=== PATIENT | female | born 1960 | race Caucasian/White ===

== ENCOUNTER 2017-08-01 17:21 | Inpatient (IN) | payer MEDICARE, SELFPAY ==
[2017-08-01] VITALS (12 sets, daily range): BP systolic 115–127; BP diastolic 56–82; PULSE 80–136; RESP 14–27; TEMP 37.3–38.8; O2SAT 92–99; BMI 76.5; BMI 75.2
--- NOTE | 2017-08-01 17:53 | EKG12_ITS ---
Test Reason : WEAKNESS Blood Pressure : / mmHG Vent. Rate : 106 BPM Atrial Rate : 106 BPM P-R Int : 142 ms QRS Dur : 084 ms QT Int : 332 ms P-R-T Axes : 042 006 031 degrees QTc Int : 441 ms Sinus tachycardia Otherwise normal ECG Confirmed by MICHEL SIMS, ALEAH ([id number]), industrial editor KO ROMERO ([id number] on 08/03/2017 2:47:13 PM Referred By: DR GERARDO Confirmed By:ALEAH PEARSON MD
--- NOTE | 2017-08-01 17:56 | ED.VISSUMM ---
- ER Visit Summary Date of Service: 08/01/17 Chief Complaint: [Fever weakness] History of Present Illness: The patient is a 57 F [who presents the emergency department with 1 day of fever and weakness. She had a temperature of 103 at home. She last took Motrin at 10:30 AM this morning. She has a history of cellulitis on her right hip. She has been nauseated she has had a mild cough and shortness of breath. She is diabetic and her sugars have been running high. She denies any abdominal pain or diarrhea. She denies any back pain or headache. She has mild myalgias and arthralgias.] Physical Examination: [] Temp 101.8. Heart rate 126 Obese WN WD NAD PERRL EOMI MMM NECK supple and nontender, no masses Regular tachycardic rhythm no murmur rub or gallop, no peripheral edema, symmetric radial pulses CTAB no respiratory distress ABDOMEN is soft and nontender, normal bowel sounds, no distension, no rebound or guarding SKIN has erythema of her entire back but has a patch of erythema and tenderness on her right flank hip area she has full range of motion of her joints Alert and Oriented x3, CN II-XII in tact, no motor or sensory deficits, gait normal use weakness and mobility is limited by body habitus No lymphadenopathy Test Results: [] Emergency Department Course and Treatment: [Sepsis workup was pursued. Patient's fevers likely secondary to flank cellulitis. She was given broad-spectrum antibiotics. She will be admitted to the hospital] Treatment Plan: [] Disposition: [] Admit Impression: [1 sepsis 2 right flank cellulitis] This note was generated with [employer] dictation software. It may contain incorrect words, spelling, and punctuation that were not noted in review of the chart prior to signing ED Disposition - Plan for ED Patient: Disposition: Acute Care Hospital [facility] Chief Complaint: Weakness
[2017-08-01] MEDS: 0.9% Normal Saline 1,000 ML IV.SOLN. 2000 ML IV (18:08)
[2017-08-01] MEDS: Acetaminophen 500 MG Tablet 1000 MG PO (18:10)
[2017-08-01 18:17] LABS: Absolute Lymphocyte Count 0.44 X10^3/ul (0.83-4.51); Absolute Neutrophil Count 14.9 X10^3/uL (2.0-7.7); Eosinophil# 0.03 X10^3/uL; Eosinophils% 0.2 % (0-5); Hemoglobin 13.3 g/dl (12.0-15.0); Lymphocyte # 0.44 X10^3/ul (4.0); Lymphocyte % 2.8 % (19-41); Mean Corp Hgb Conc 33.3 g/gl (32-36); Mean Corpuscular Volume 84.2 fL (81-99); Mean Platelet Vol. 11.1 fl (6.2-12.0); Monocyte# 0.59 X10^3/uL; Monocyte% 3.7 % (0-10); Neutrophil # 14.93 X10^3/uL (2.7-7.7); Neutrophil % 93.2 % (47-70); Platelet Count 196 K/mm3 (150-450); RBC Distribution Width CV 13.2 % (11.6-14.6); RBC Distribution Width SD 40.3 fl (35.1-43.9); Red Blood Count 4.75 M/mm3 (4.2-5.4)
[2017-08-01 18:18] LABS: Differential Indicated SCAN CRITERIA MET; POSITIVE COUNT NO; POSITIVE DIFFERENTIAL YES; POSITIVE MORPHOLOGY NO
[2017-08-01 18:21] LABS: International Normalized Ratio 1.1; Partial Thromboplast Time 30.4 Seconds (24.1-36.2); Prothrombin Time (Protime)PT. 13.9 SECONDS (11.7-14.9)
[2017-08-01 18:25] LABS: ALB/GLOB Ratio 0.9 RATIO (0.9-2.4); AST(SGOT) 12 U/L (15-37); Alanine Aminotransfer ALT/SGPT 19 U/L (13-56); Albumin, Serum 3.5 g/dL (3.2-5.0); Alkaline Phosphatase 163 U/L (45-117); Anion Gap 7 (5-15); BUN 13 mg/dL (7-18); BUN/Creat Ratio 15.6 RATIO (10-20); Calcium,Total 8.6 mg/dL (8.5-10.1); Chloride 99 mmol/L (98-107); Creatinine, Serum 0.83 mg/dL (0.55-1.02); EST Glomerular Filtration Rate 75 mL/min (>60); Est Glom Filt Rate - Afr Amer 90 mL/min (>60); Estimated Creatinine Clearance 56.43 ml/min; Globulin 3.7 g/dL (2.2-4.2); Glucose 306 mg/dL (74-106); Lactic Acid 1.7 mmol/L (0.4-2.0); Potassium 4.1 mmol/L (3.5-5.1); Protein, Total 7.2 g/dL (6.4-8.2); Sodium Level 134 mmol/L (136-145)
[2017-08-01 18:27] LABS: Differential Comment SCANNED
--- NOTE | 2017-08-01 18:50 | RAD_ITS ---
STUDY: X-RAY CHEST REASON FOR EXAM: Female, 57 years old. Weakness TECHNIQUE: Frontal and lateral views of the chest COMPARISON: 05/28/2012 FINDINGS: The lungs are clear. There are no pleural effusions. There is no pneumothorax. The heart is normal in size. The visualized osseous structures are within normal limits. RAD/Chest PA and Lateral IMPRESSION: No acute thoracic pathology. Electronically Signed: Danial Whatley, at 19:44 EDT Tel , Service support ,
[2017-08-01 19:44] LABS: Bacteria 0 SEEN /hpf (None Seen); Red Blood Cells-Urine 0 SEEN /hpf (0-5); Squamous Epithelial Cells - UA 0 SEEN /hpf (5-10); White Blood Cells 0 SEEN /hpf (0-5)
[2017-08-01 20:01] LABS: Color, Urine Yellow (Yellow); Glucose, Dipstick 250 mg/dl (Normal); Ketone-Dipstick 5 mg/dl (Negative); Leukocyte Esterase-Dipstick Negative /ul (Negative); Nitrite-Dipstick Negative (Negative); Occult Blood-Urine 10 /ul (Negative); Protein-Dipstick 15 mg/dl (Negative); Specific Gravity, Urine 1.015 (1.002-1.030); Urine Bilirubin Dipstick Negative (Negative); Urine Clarity Clear (Clear); Urine Urobilinogen Normal (Normal)
[2017-08-01 20:11] LABS: Mucous, Urine 1+ /hpf (<or=2+)
--- NOTE | 2017-08-01 23:12 | PCM.HP.STD ---
Problem List (1) Cellulitis Status: Acute Qualifiers: Site of cellulitis: buttock Qualified Code(s): L03.317 - Cellulitis of buttock History of Present Illness Date of Admission: 08/01/17 Chief Complaint: flank and buttock pain. The patient is a 57 year old F morbidly obese woman who was in her normal state of health up until today where patient developed pain and swelling in her right side associated with high-grade fevers of 103 Fahrenheit. Patient has had similar episodes like this with cellulitis. Patient presented to the emergency room via EMS and have cellulitis and received a Zosyn and vancomycin. Patient does also state that she is short of breath as well. [] Past Medical History Past Medical History (Chronic Problems): Chronic Problems History of pneumonia (Chronic) JEREMÍAS (obstructive sleep apnea) (Chronic) Lumbosacral neuritis (Chronic) Esophageal reflux (Chronic) Morbid obesity (Chronic) Hypertension (Chronic) Allergies amlodipine Adverse Reaction (Verified 08/01/17 17:30) Unknown atenolol Adverse Reaction (Verified 08/01/17 17:30) Unknown bupropion HCl [From Wellbutrin] Adverse Reaction (Verified 08/01/17 17:30) Unknown fluoxetine HCl [From Prozac] Adverse Reaction (Verified 08/01/17 17:30) Unknown meloxicam [From Mobic] Adverse Reaction (Verified 08/01/17 17:30) Unknown metoprolol Adverse Reaction (Verified 08/01/17 17:30) Unknown pregabalin [From Lyrica] Adverse Reaction (Verified 08/01/17 17:30) Unknown quetiapine fumarate [From Seroquel] Adverse Reaction (Verified 08/01/17 17:30) Unknown quinapril HCl [From Accupril] Adverse Reaction (Verified 08/01/17 17:30) Unknown risperidone Adverse Reaction (Verified 08/01/17 17:30) Unknown rofecoxib [From Vioxx] Adverse Reaction (Verified 08/01/17 17:30) Unknown sitagliptin phosphate [From Januvia] Adverse Reaction (Verified 08/01/17 17:30) Unknown venlafaxine HCl [From Effexor] Adverse Reaction (Verified 08/01/17 17:30) Unknown Home Medications: Ambulatory Orders Medication Instructions Recorded Aripiprazole [Aripiprazole] 10 mg PO DAILY 12/02/14 Aspirin [Adult Low Dose Aspirin EC] 81 mg PO DAILY 12/02/14 Duloxetine HCl 60 mg PO DAILY 12/02/14 Furosemide [Furosemide] 20 mg PO DAILY 12/02/14 Linagliptin [Tradjenta] 5 mg PO DAILY 12/02/14 Metformin HCl [Glucophage] 500 mg PO DAILY 12/02/14 Potassium Chloride [K-Dur] 10 meq PO DAILY 12/02/14 Ranitidine [Zantac] 150 mg PO BID 12/02/14 Spironolactone [Aldactone] 25 mg PO DAILY 12/02/14 Baclofen [Baclofen] 10 mg PO BID 08/01/17 Diclofenac Sodium 75 mg PO BID 08/01/17 Gabapentin [Neurontin] 300 mg PO QHS 08/01/17 Primidone [Mysoline] 50 mg PO QHS 08/01/17 traZODone [Desyrel] 50 - 100 mg PO QHS PRN 08/01/17 Surgical History: cholecystectomy Lives: Alone Smoking Status: Former smoker Tobacco Use: Non-smoker Alcohol: None Drugs: None - *Family History Sibling History Items: Heart Disease Review of Systems Constitutional: Reports: Chills, Fever. Denies: Anorexia Eyes: Denies: Blurred vision, Double vision HEENT: Denies: Head Aches, Sinus Congestion, Sinus Drainage Cardiovascular: Denies: Chest Pain, Palpitations Respiratory: Reports: Shortness of Breath. Denies: Cough, Sputum production Gastrointestinal: Denies: Abdominal Pain, Nausea, Vomiting Genitourinary: Denies: Dysuria Musculoskeletal: Denies: Joint Pain, Joint Tenderness Skin: Denies: Dryness, Lesions Neurological: Denies: Numbness, Tingling, Focal weakness Psychiatric: Denies: Anxiety, Depression Hematologic/ Lymphatic: Denies: Easy Bruising, Easy Bleeding, Hx of blood clot Comment: Our views are otherwise negative except for as mentioned above in the HPI and review of systems. VTE Information - Inpt Only VTE Present on Admission: No VTE Pharm Prophylaxis ordered?: Yes Patient Problems: Active and Suspected Problems Cellulitis (Acute) - Physical Exam General: Alert, Cooperative, No apparent distress, - - Morbidly obese HEENT: Atraumatic, Normocephalic Oral: Moist Mucosa Neck: No Nodes, Thyroid Normal Size and Texture Lungs: Clear to auscultation, No rhonchi, No wheeze, Diminished Cardiovascular: Regular rate, Regular Rhythm, Normal S1, Normal S2 Abdomen: Bowel Sounds Present, Soft, Non Tender, Non-Distended, Obese Extremities: No Calf Tenderness, Edema - Trace Skin: - - Some mild erythema noted throughout but actual warmth noted on over the right buttocks and flank. No definitive well-demarcated lesion is identified. Musculoskeletal: No Tenderness to Palpation of Joints or Extremities, No Muscle Wasting Neurological: Neuro grossly intact, Muscle tone normal, Sensory exam intact to light touch and pain Psych/Mental Status: Normal Affect, Appropriate Vital Signs Temp Pulse Resp BP Pulse Ox 37.5 C H 85 14 123/70 H 99 08/01/17 21:11 08/01/17 22:48 08/01/17 22:48 08/01/17 22:48 08/01/17 22:48 Oxygen Flow Rate (L/min) 2 Oxygen Delivery Method Room Air Weight: 183.7 kg Body Mass Index (BMI) 76.5 Laboratory Tests Past 24 Hrs 08/01/17 08/01/17 08/01/17 17:40 17:40 17:40 WBC 16.0 H RBC 4.75 Hgb 13.3 Hct 40.0 MCV 84.2 MCH 28.0 MCHC 33.3 RDW 13.2 RDW Differential 40.3 Plt Count 196 MPV 11.1 Immature Gran % (Auto) 0.100 Neut % (Auto) 93.2 H Lymph % (Auto) 2.8 L [place] % (Auto) 3.7 Eos % (Auto) 0.2 Baso % (Auto) 0.0 Absolute Neuts (auto) 14.9 H Absolute Lymphs (auto) 0.44 L Total Counted Not Reportable Differential Comment SCANNED PT 13.9 INR 1.1 APTT 30.4 Sodium 134 L Potassium 4.1 Chloride 99 Carbon Dioxide 28.0 Anion Gap 7 BUN 13 Creatinine 0.83 Estim Creat Clear Calc 56.43 Est GFR (MDRD) Af Amer 90 Est GFR (MDRD) Non-Af 75 BUN/Creatinine Ratio 15.6 Glucose 306 H Lactic Acid Calcium 8.6 Total Bilirubin 0.80 AST 12 L ALT 19 Alkaline Phosphatase 163 H Troponin I < 0.015 Total Protein 7.2 Albumin 3.5 Globulin 3.7 Albumin/Globulin Ratio 0.9 Urine Color Urine Clarity Urine pH Ur Specific [place] Urine Protein Urine Glucose (UA) Urine Ketones Urine Occult Blood Urine Nitrite Urine Bilirubin Urine Urobilinogen Ur Leukocyte Esterase Urine RBC Urine WBC Ur Squamous Epith Cells Urine Bacteria Urine Mucus 08/01/17 08/01/17 17:40 19:35 WBC RBC Hgb Hct MCV MCH MCHC RDW RDW Differential Plt Count MPV Immature Gran % (Auto) Neut % (Auto) Lymph % (Auto) [place] % (Auto) Eos % (Auto) Baso % (Auto) Absolute Neuts (auto) Absolute Lymphs (auto) Total Counted Differential Comment PT INR APTT Sodium Potassium Chloride Carbon Dioxide Anion Gap BUN Creatinine Estim Creat Clear Calc Est GFR (MDRD) Af Amer Est GFR (MDRD) Non-Af BUN/Creatinine Ratio Glucose Lactic Acid 1.7 Calcium Total Bilirubin AST ALT Alkaline Phosphatase Troponin I Total Protein Albumin Globulin Albumin/Globulin Ratio Urine Color Yellow Urine Clarity Clear Urine pH 6.0 Ur Specific [place] 1.015 Urine Protein 15 H Urine Glucose (UA) 250 H Urine Ketones 5 H Urine Occult Blood 10 H Urine Nitrite Negative Urine Bilirubin Negative Urine Urobilinogen Normal Ur Leukocyte Esterase Negative Urine RBC 0 SEEN Urine WBC 0 SEEN Ur Squamous Epith Cells 0 SEEN Urine Bacteria 0 SEEN Urine Mucus 1+ Clinical Impression(s) from Imaging Studies Chest X-Ray 08/01/17 18:50 IMPRESSION: No acute thoracic pathology. Electronically Signed: Danial Chacorta, at 19:44 EDT Tel , Service support , Assessment/Plan All Active Problems Cellulitis (Acute) 1. Right buttock and flank cellulitis Given the rapid onset with suspect streptococcal versus staph Patient received Zosyn and vancomycin and continue with vancomycin Would continue with IV antibiotics and till patient's symptoms do improve. 2. Sepsis Present on arrival Secondary to cellulitis 3. Debility Patient does live alone but is able to care for herself but when she got sick patient just felt very weak and did have called EMS. Will have physical and occupational therapy assess patient for any potential home-going needs upon discharge. 4. Diabetes mellitus type 2 Continue with Metformin and Tradjenta Add sliding scale insulin 5. Venous thromboembolic prophylaxis Patient moderate risk given her obesity and other medical comorbidities Subcu Lovenox Code Visit Inpatient E&M: 48358 Init Hosp L3
--- NOTE | 2017-08-01 23:19 | HP.PCM_ITS ---
Problem List (1) Cellulitis Status: Acute Qualifiers: Site of cellulitis: buttock Qualified Code(s): L03.317 - Cellulitis of buttock History of Present Illness Date of Admission: 08/01/17 Chief Complaint: flank and buttock pain. The patient is a 57 year old F morbidly obese woman who was in her normal state of health up until today where patient developed pain and swelling in her right side associated with high-grade fevers of 103 Fahrenheit. Patient has had similar episodes like this with cellulitis. Patient presented to the emergency room via EMS and have cellulitis and received a Zosyn and vancomycin. Patient does also state that she is short of breath as well. [] Past Medical History Past Medical History (Chronic Problems): Chronic Problems History of pneumonia (Chronic) JEREMÍAS (obstructive sleep apnea) (Chronic) Lumbosacral neuritis (Chronic) Esophageal reflux (Chronic) Morbid obesity (Chronic) Hypertension (Chronic) Allergies amlodipine Adverse Reaction (Verified 08/01/17 17:30) Unknown atenolol Adverse Reaction (Verified 08/01/17 17:30) Unknown bupropion HCl [From Wellbutrin] Adverse Reaction (Verified 08/01/17 17:30) Unknown fluoxetine HCl [From Prozac] Adverse Reaction (Verified 08/01/17 17:30) Unknown meloxicam [From Mobic] Adverse Reaction (Verified 08/01/17 17:30) Unknown metoprolol Adverse Reaction (Verified 08/01/17 17:30) Unknown pregabalin [From Lyrica] Adverse Reaction (Verified 08/01/17 17:30) Unknown quetiapine fumarate [From Seroquel] Adverse Reaction (Verified 08/01/17 17:30) Unknown quinapril HCl [From Accupril] Adverse Reaction (Verified 08/01/17 17:30) Unknown risperidone Adverse Reaction (Verified 08/01/17 17:30) Unknown rofecoxib [From Vioxx] Adverse Reaction (Verified 08/01/17 17:30) Unknown sitagliptin phosphate [From Januvia] Adverse Reaction (Verified 08/01/17 17:30) Unknown venlafaxine HCl [From Effexor] Adverse Reaction (Verified 08/01/17 17:30) Unknown Home Medications: Ambulatory Orders Medication Instructions Recorded Aripiprazole [Aripiprazole] 10 mg PO DAILY 12/02/14 Aspirin [Adult Low Dose Aspirin EC] 81 mg PO DAILY 12/02/14 Duloxetine HCl 60 mg PO DAILY 12/02/14 Furosemide [Furosemide] 20 mg PO DAILY 12/02/14 Linagliptin [Tradjenta] 5 mg PO DAILY 12/02/14 Metformin HCl [Glucophage] 500 mg PO DAILY 12/02/14 Potassium Chloride [K-Dur] 10 meq PO DAILY 12/02/14 Ranitidine [Zantac] 150 mg PO BID 12/02/14 Spironolactone [Aldactone] 25 mg PO DAILY 12/02/14 Baclofen [Baclofen] 10 mg PO BID 08/01/17 Diclofenac Sodium 75 mg PO BID 08/01/17 Gabapentin [Neurontin] 300 mg PO QHS 08/01/17 Primidone [Mysoline] 50 mg PO QHS 08/01/17 traZODone [Desyrel] 50 - 100 mg PO QHS PRN 08/01/17 Surgical History: cholecystectomy Lives: Alone Smoking Status: Former smoker Tobacco Use: Non-smoker Alcohol: None Drugs: None - *Family History Sibling History Items: Heart Disease Review of Systems Constitutional: Reports: Chills, Fever. Denies: Anorexia Eyes: Denies: Blurred vision, Double vision HEENT: Denies: Head Aches, Sinus Congestion, Sinus Drainage Cardiovascular: Denies: Chest Pain, Palpitations Respiratory: Reports: Shortness of Breath. Denies: Cough, Sputum production Gastrointestinal: Denies: Abdominal Pain, Nausea, Vomiting Genitourinary: Denies: Dysuria Musculoskeletal: Denies: Joint Pain, Joint Tenderness Skin: Denies: Dryness, Lesions Neurological: Denies: Numbness, Tingling, Focal weakness Psychiatric: Denies: Anxiety, Depression Hematologic/ Lymphatic: Denies: Easy Bruising, Easy Bleeding, Hx of blood clot Comment: Our views are otherwise negative except for as mentioned above in the HPI and review of systems. VTE Information - Inpt Only VTE Present on Admission: No VTE Pharm Prophylaxis ordered?: Yes Patient Problems: Active and Suspected Problems Cellulitis (Acute) - Physical Exam General: Alert, Cooperative, No apparent distress, - - Morbidly obese HEENT: Atraumatic, Normocephalic Oral: Moist Mucosa Neck: No Nodes, Thyroid Normal Size and Texture Lungs: Clear to auscultation, No rhonchi, No wheeze, Diminished Cardiovascular: Regular rate, Regular Rhythm, Normal S1, Normal S2 Abdomen: Bowel Sounds Present, Soft, Non Tender, Non-Distended, Obese Extremities: No Calf Tenderness, Edema - Trace Skin: - - Some mild erythema noted throughout but actual warmth noted on over the right buttocks and flank. No definitive well-demarcated lesion is identified. Musculoskeletal: No Tenderness to Palpation of Joints or Extremities, No Muscle Wasting Neurological: Neuro grossly intact, Muscle tone normal, Sensory exam intact to light touch and pain Psych/Mental Status: Normal Affect, Appropriate Vital Signs Temp Pulse Resp BP Pulse Ox 37.5 C H 85 14 123/70 H 99 08/01/17 21:11 08/01/17 22:48 08/01/17 22:48 08/01/17 22:48 08/01/17 22:48 Oxygen Flow Rate (L/min) 2 Oxygen Delivery Method Room Air Weight: 183.7 kg Body Mass Index (BMI) 76.5 Laboratory Tests Past 24 Hrs 08/01/17 08/01/17 08/01/17 17:40 17:40 17:40 WBC 16.0 H RBC 4.75 Hgb 13.3 Hct 40.0 MCV 84.2 MCH 28.0 MCHC 33.3 RDW 13.2 RDW Differential 40.3 Plt Count 196 MPV 11.1 Immature Gran % (Auto) 0.100 Neut % (Auto) 93.2 H Lymph % (Auto) 2.8 L [place] % (Auto) 3.7 Eos % (Auto) 0.2 Baso % (Auto) 0.0 Absolute Neuts (auto) 14.9 H Absolute Lymphs (auto) 0.44 L Total Counted Not Reportable Differential Comment SCANNED PT 13.9 INR 1.1 APTT 30.4 Sodium 134 L Potassium 4.1 Chloride 99 Carbon Dioxide 28.0 Anion Gap 7 BUN 13 Creatinine 0.83 Estim Creat Clear Calc 56.43 Est GFR (MDRD) Af Amer 90 Est GFR (MDRD) Non-Af 75 BUN/Creatinine Ratio 15.6 Glucose 306 H Lactic Acid Calcium 8.6 Total Bilirubin 0.80 AST 12 L ALT 19 Alkaline Phosphatase 163 H Troponin I < 0.015 Total Protein 7.2 Albumin 3.5 Globulin 3.7 Albumin/Globulin Ratio 0.9 Urine Color Urine Clarity Urine pH Ur Specific [place] Urine Protein Urine Glucose (UA) Urine Ketones Urine Occult Blood Urine Nitrite Urine Bilirubin Urine Urobilinogen Ur Leukocyte Esterase Urine RBC Urine WBC Ur Squamous Epith Cells Urine Bacteria Urine Mucus 08/01/17 08/01/17 17:40 19:35 WBC RBC Hgb Hct MCV MCH MCHC RDW RDW Differential Plt Count MPV Immature Gran % (Auto) Neut % (Auto) Lymph % (Auto) [place] % (Auto) Eos % (Auto) Baso % (Auto) Absolute Neuts (auto) Absolute Lymphs (auto) Total Counted Differential Comment PT INR APTT Sodium Potassium Chloride Carbon Dioxide Anion Gap BUN Creatinine Estim Creat Clear Calc Est GFR (MDRD) Af Amer Est GFR (MDRD) Non-Af BUN/Creatinine Ratio Glucose Lactic Acid 1.7 Calcium Total Bilirubin AST ALT Alkaline Phosphatase Troponin I Total Protein Albumin Globulin Albumin/Globulin Ratio Urine Color Yellow Urine Clarity Clear Urine pH 6.0 Ur Specific [place] 1.015 Urine Protein 15 H Urine Glucose (UA) 250 H Urine Ketones 5 H Urine Occult Blood 10 H Urine Nitrite Negative Urine Bilirubin Negative Urine Urobilinogen Normal Ur Leukocyte Esterase Negative Urine RBC 0 SEEN Urine WBC 0 SEEN Ur Squamous Epith Cells 0 SEEN Urine Bacteria 0 SEEN Urine Mucus 1+ Clinical Impression(s) from Imaging Studies Chest X-Ray 08/01/17 18:50 IMPRESSION: No acute thoracic pathology. Electronically Signed: Danial Chacorta, at 19:44 EDT Tel , Service support , Assessment/Plan All Active Problems Cellulitis (Acute) 1. Right buttock and flank cellulitis * Given the rapid onset with suspect streptococcal versus staph * Patient received Zosyn and vancomycin and continue with vancomycin * Would continue with IV antibiotics and till patient's symptoms do improve. 2. Sepsis * Present on arrival * Secondary to cellulitis 3. Debility * Patient does live alone but is able to care for herself but when she got sick patient just felt very weak and did have called EMS. * Will have physical and occupational therapy assess patient for any potential home-going needs upon discharge. 4. Diabetes mellitus type 2 * Continue with Metformin and Tradjenta * Add sliding scale insulin 5. Venous thromboembolic prophylaxis * Patient moderate risk given her obesity and other medical comorbidities * Subcu Lovenox Code Visit Inpatient E&M: 99717 Init Hosp L3
[2017-08-01] MEDS: HYDROcodone Bitartrate/Apap 5/325 Tablet PO (23:23)
[2017-08-02] VITALS (8 sets, daily range): BP systolic 80–129; BP diastolic 39–62; PULSE 76–84; RESP 16–20; TEMP 36.5–37.3; O2SAT 94–100
[2017-08-02] MEDS: Famotidine 20 MG Tablet PO ×3 (01:26→21:50)
[2017-08-02] MEDS: Gabapentin 300 MG Capsule PO ×2 (01:28→21:50)
[2017-08-02] MEDS: Primidone 50 MG Tablet PO ×2 (01:28→21:49)
[2017-08-02] MEDS: traZODone 50 MG Tablet PO ×2 (01:41→21:54)
[2017-08-02] MEDS: 0.9% Normal Saline 1,000 ML 125 ML IV (02:11)
[2017-08-02] MEDS: DiphenhydrAMINE 25 MG Capsule PO ×3 (02:18→21:54)
[2017-08-02] MEDS: Cefazolin 1 GM/50 ML BAG IV ×3 (02:18→21:54)
[2017-08-02] MEDS: oxyCODONE 5 MG Tablet PO ×3 (04:02→21:54)
[2017-08-02] MEDS: Insulin Lispro 100 UNIT/ML INSULN.PEN SQ ×3 (06:44→15:38)
[2017-08-02 06:50] LABS: Anion Gap 5 (5-15); BUN 11 mg/dL (7-18); BUN/Creat Ratio 18.8 RATIO (10-20); Chloride 106 mmol/L (98-107); Creatinine, Serum 0.58 mg/dL (0.55-1.02); EST Glomerular Filtration Rate 113 mL/min (>60); Est Glom Filt Rate - Afr Amer 136 mL/min (>60); Estimated Creatinine Clearance 80.75 ml/min; Glucose 193 mg/dL (74-106); Potassium 3.6 mmol/L (3.5-5.1); Sodium Level 139 mmol/L (136-145)
[2017-08-02 06:58] LABS: Absolute Lymphocyte Count 0.45 X10^3/ul (0.83-4.51); Absolute Neutrophil Count 7.8 X10^3/uL (2.0-7.7); Basophil# 0.01 X10^3/uL; Basophil% 0.1 % (0-1); Eosinophil# 0.06 X10^3/uL; Eosinophils% 0.7 % (0-5); Hematocrit 36.3 % (37-47); Lymphocyte # 0.45 X10^3/ul (4.0); Lymphocyte % 5.2 % (19-41); Mean Corp Hgb Conc 33.1 g/gl (32-36); Mean Corpuscular Hgb 28.2 pg (27.0-32.0); Mean Corpuscular Volume 85.2 fL (81-99); Mean Platelet Vol. 10.7 fl (6.2-12.0); Monocyte# 0.34 X10^3/uL; Monocyte% 3.9 % (0-10); Neutrophil % 89.6 % (47-70); Platelet Count 163 K/mm3 (150-450); RBC Distribution Width CV 13.5 % (11.6-14.6); RBC Distribution Width SD 41.1 fl (35.1-43.9); Red Blood Count 4.26 M/mm3 (4.2-5.4); White Blood Count 8.7 K/mm3 (4.4-11.0)
[2017-08-02 07:15] LABS: Differential Indicated SCAN CRITERIA MET; POSITIVE COUNT NO; POSITIVE DIFFERENTIAL YES; POSITIVE MORPHOLOGY NO
[2017-08-02 07:16] LABS: Differential Comment SCANNED
[2017-08-02] MEDS: Diclofenac 75 MG Tablet PO ×2 (08:23→16:34)
[2017-08-02] MEDS: Aspirin E.C. 81 MG Tablet PO (08:24)
--- NOTE | 2017-08-02 09:02 | PCM.PN.HOSP ---
Patient Problems: Active and Suspected Problems Cellulitis (Acute) Subjective: Patient was seen and examined. No new complaints. Admitted last night with cellulitis of the right hip and buttocks. The redness and swelling of her right hip and buttocks is improving. She denies any fever or chills or dizziness or palpitations or chest pain. Objective: Physical Exam General: Alert, Cooperative, No apparent distress, - - Morbidly obese HEENT: Atraumatic, Normocephalic Oral: Moist Mucosa Neck: No Nodes, Thyroid Normal Size and Texture Lungs: Clear to auscultation, No rhonchi, No wheeze, Diminished Cardiovascular: Regular rate, Regular Rhythm, Normal S1, Normal S2 Abdomen: Bowel Sounds Present, Soft, Non Tender, Non-Distended, Obese Extremities: No Calf Tenderness, Edema - Trace Skin: - - Some mild erythema noted throughout but actual warmth noted on over the right buttocks and flank. No definitive well-demarcated lesion is identified. Musculoskeletal: No Tenderness to Palpation of Joints or Extremities, No Muscle Wasting Neurological: Neuro grossly intact, Muscle tone normal, Sensory exam intact to light touch and pain Psych/Mental Status: Normal Affect, Appropriate Vitals/I&O's: Vital Signs Temp Pulse Resp BP Pulse Ox 98.2 F 81 16 103/51 L 97 08/02/17 08:06 08/02/17 08:06 08/02/17 08:06 08/02/17 08:06 08/02/17 08:06 Oxygen Flow Rate (L/min) 2 Oxygen Delivery Method Nasal Cannula Weight: 180.5 kg Body Mass Index (BMI) 75.2 Laboratory Results 08/02/17 06:12: WBC 8.7, RBC 4.26, Hgb 12.0, Hct 36.3 L, MCV 85.2, MCH 28.2, MCHC 33.1, RDW 13.5, RDW Differential 41.1, Plt Count 163, MPV 10.7, Immature Gran % (Auto) 0.500, Neut % (Auto) 89.6 H, Lymph % (Auto) 5.2 L, Bond % (Auto) 3.9, Eos % (Auto) 0.7, Baso % (Auto) 0.1, Absolute Neuts (auto) 7.8 H, Absolute Lymphs (auto) 0.45 L, Total Counted Not Reportable, Differential Comment SCANNED 08/02/17 06:12: Sodium 139, Potassium 3.6, Chloride 106, Carbon Dioxide 28.0, Anion Gap 5, BUN 11, Creatinine 0.58, Estim Creat Clear Calc 80.75, Est GFR (MDRD) Af Amer 136, Est GFR (MDRD) Non-Af 113, BUN/Creatinine Ratio 18.8, Glucose 193 H, Calcium 8.0 L Current Medications Acetaminophen (Tylenol) 650 mg PO Q6H PRN PRN PRN Reason: Mild Pain (scale 0-3)/T>100.7 Aripiprazole (Abilify) 10 mg PO DAILY [facility] Last Admin: 08/02/17 08:24 Dose: 81 mg Baclofen (Lioresal) 10 mg PO BID [facility] Dextrose (D50w Syringe) 0 gm IV X1 PRN; Protocol PRN Reason: Hypoglycemia Diclofenac Sodium ([facility]ren) [facility] Last Admin: 08/02/17 08:23 Dose: 75 mg Diphenhydramine HCl (Benadryl) 25 mg PO Q6H PRN PRN PRN Reason: ITCHING Last Admin: 08/02/17 02:18 Dose: 25 mg Duloxetine HCl (Cymbalta) 60 mg PO DAILY [facility] Enoxaparin Sodium (Lovenox) 40 mg SC DAILY@1000 [facility] Famotidine (Pepcid) 20 mg PO BID [facility] Last Admin: 08/02/17 01:26 Dose: 20 mg Furosemide (Lasix) 20 mg PO DAILY [facility] Gabapentin (Neurontin) 300 mg PO QHS [facility] Last Admin: 08/02/17 01:28 Dose: 300 mg Glucagon () 1 mg IM .X1 PRN PRN Reason: Hypoglycemia Sodium Chloride () 1,000 mls @ 125 mls/hr IV .Q8H ONE Stop: 08/02/17 10:04 Last Admin: 08/02/17 02:11 Dose: 125 mls/hr Cefazolin Sodium () 1 gm in 50 mls @ 100 mls/hr IV Q8 [facility] Last Admin: 08/02/17 02:18 Dose: 100 mls/hr Sodium Chloride () 250 mls @ 15 mls/hr IV .[id number] PRN PRN Reason: SALINE FLUSH Insulin Human Lispro (Humalog Kwikpen (Bkc)) 0 unit SQ TIDAC [facility] PRN Reason: Protocol Last Admin: 08/02/17 06:44 Dose: 1 unit Linagliptin (Tradjenta) 5 mg PO DAILY [facility] Magnesium Hydroxide (Milk Of Magnesia) 30 ml PO DAILY PRN PRN PRN Reason: Constipation Ondansetron HCl (Zofran) 4 mg IV Q8H PRN PRN PRN Reason: Nausea Oxycodone HCl (Oxyir) 5 mg PO Q4H PRN PRN PRN Reason: Moderate Pain (pain scale 4-5) Last Admin: 08/02/17 04:02 Dose: 5 mg Potassium Chloride (K-Dur) 10 meq PO DAILYCM [facility] Last Admin: 08/02/17 08:23 Dose: 10 meq Primidone (Mysoline) 50 mg PO QHS [facility] Last Admin: 08/02/17 01:28 Dose: 50 mg Sodium Chloride () 5 - 30 ml IV UD PRN PRN Reason: SALINE FLUSH Spironolactone (Aldactone) 25 mg PO DAILY [facility] Trazodone HCl (Desyrel) 50 mg PO QHS PRN PRN Reason: SLEEP Last Admin: 08/02/17 01:41 Dose: 50 mg Medical Necessity - Tobacco Use Smoking Status: Former smoker Tobacco Use: Non-smoker Assessment/Plan All Active Problems Cellulitis (Acute) 57-year-old female past medical history of super super morbid obesity, BMI of 75.2, type 2 DM, history of recurrent cellulitis comes in with an episode of cellulitis. 1. Sepsis secondary to right buttock/flank pain(leukocytosis and fever on arrival), resolving with IV antibiotics, blood cultures are pending 2. Right buttock and flank cellulitis, recurrent, improved with cefazolin, will continue same, will possible switch to oral antibiotics from tomorrow 3. Type II DM, was on Tradjenta and metformin, last HbA1c. Patient is 7.5, continue on insulin sliding scale, Tradjenta for now, metformin held, continue Accu-Cheks 4. Debility, due to multiple comorbidities and especially super super morbid obesity, and PT/OT to assess 5. DVT prophylaxis with Lovenox subcu Code Visit Inpatient E&M: 46274 Subs Hosp L2
[2017-08-02] MEDS: Spironolactone 25 MG Tablet PO (09:13)
[2017-08-02] MEDS: Furosemide 20 MG Tablet PO (09:13)
[2017-08-02] MEDS: DULoxetine Hcl 60 MG Capsule PO (09:13)
[2017-08-02] MEDS: ARIPiprazole 10 MG Tablet PO (09:13)
[2017-08-02] MEDS: Baclofen 10 MG Tablet PO ×2 (09:14→21:48)
[2017-08-02] MEDS: Enoxaparin 40 MG/0.4 ML Syringe SC (09:15)
[2017-08-02] MEDS: LINAGLIPTIN 5 MG TABLET PO (09:15)
[2017-08-02 09:59] LABS: Hemoglobin A1c 8.2 % (4.2-6.3)
[2017-08-02] MEDS: Acetaminophen 325 MG Tablet 650 MG PO (10:38)
[2017-08-02] MEDS: 0.9% NaCl IVPB Med Flush (250 mL) 15 ML IV (10:39)
--- NOTE | 2017-08-02 10:46 | CASEMGMT ---
LOLY GARCIA Face to Face with patient for initial transition planning/care coordination assessment. RN JOSE introduced self and role at [facility]. Patient sitting in chair, alert and oriented. Patient willing to participate in assessment and is able to answer all questions appropriately. Care providers, pharmacy, and demographics verified. See link attached. Patient wishes to discharge home with resumption of HH aide through [facility]. Patient has waiver program services. Patient states she has no further needs or concerns at this time. CM to follow for discharge planning needs that may arise. Disposition Plan: Patient to discharge home with HH aide, family support, and follow-up plans in place.
[2017-08-02 10:55] LABS: Bedside Glucose 242 mg/dL (70-110)
--- NOTE | 2017-08-02 15:39 | CASEMGMT ---
Social Work Note SW received call from pt's Home Health Agency and spoke with Etelvina. Per Etelvina she is following pt's case. Etelvina provided phone number [phone] and fax number [phone]. RN CM will follow along pt and assist with Home Health needs. Janell Coates SUPERVISOR [employer]PED [employer]PING, ELECTRONIC WARFARE LINGUIST
[2017-08-03 04:10] VITALS: BP 112/49; PULSE 71; RESP 18; TEMP 36.5; O2SAT 99
[2017-08-03] MEDS: Cefazolin 1 GM/50 ML BAG IV (06:42)
[2017-08-03] MEDS: Insulin Lispro 100 UNIT/ML INSULN.PEN SQ ×2 (06:46→11:36)
[2017-08-03 07:55] VITALS: O2SAT 96
[2017-08-03 08:05] VITALS: BP 126/78; PULSE 82; RESP 16; TEMP 36.9; O2SAT 96
[2017-08-03] MEDS: Aspirin E.C. 81 MG Tablet PO (08:15)
[2017-08-03] MEDS: Diclofenac 75 MG Tablet PO (08:15)
--- NOTE | 2017-08-03 10:45 | CASEMGMT ---
Social Work Note Pt is being discharged today. Pt is currently on Waiver Program through [facility] and pt's director case is Shanice Valentin. SW placed a call to [facility] and left a message for Shanice Valentin regarding pt's discharge today. Per Shanice's voicemail she is out of the office until Sunday. REYES placed a call to covering for Shanice and spoke with Alexy Sarmiento. REYES updated Alexy that pt will be discharged today. Alexy states that he will contact pt's services to update them that pt will be discharged today. Plan: Return home with resumption of services Janell Coates CIDER MAKER, PROCESS ANALYST
[2017-08-03 11:14] VITALS: BP 144/80; PULSE 74; RESP 18; TEMP 37.2; O2SAT 98
[2017-08-03] MEDS: Furosemide 20 MG Tablet PO (11:16)
[2017-08-03] MEDS: Spironolactone 25 MG Tablet PO (11:16)
[2017-08-03] MEDS: Baclofen 10 MG Tablet PO (11:16)
[2017-08-03] MEDS: ARIPiprazole 10 MG Tablet PO (11:16)
[2017-08-03] MEDS: DULoxetine Hcl 60 MG Capsule PO (11:16)
[2017-08-03] MEDS: Enoxaparin 40 MG/0.4 ML Syringe SC (11:17)
[2017-08-03] MEDS: Famotidine 20 MG Tablet PO (11:17)
[2017-08-03] MEDS: LINAGLIPTIN 5 MG TABLET PO (11:17)
[2017-08-03] MEDS: oxyCODONE 5 MG Tablet PO (11:19)
--- NOTE | 2017-08-03 11:22 | PCM.DC ---
- Discharge Diagnoses Current Active Problems: Current Active and Chronic Problems Cellulitis (Acute) Reason(s) for Visit for Discharge Instructions: Right flank and buttocks redness You will use the following diet at home:: Calorie/Carbohydrate Controlled (specify 1200, 1400, etc), Cardiac Your food should be the consistency of: Regular Your liquids should be the consistency of: Regular/Thin Discharge Activity: Return to Normal Activity Call your doctor if you observe: Fever of 101 or Higher Additional Instructions: You are advised to complete your antibiotics. Continue general hygiene including daily bathing. Follow-up with your PCP with a log of your blood sugars Allergies/Adverse Reactions: Allergies vancomycin Allergy (Verified 08/02/17 05:42) Rash amlodipine Adverse Reaction (Verified 08/01/17 17:30) Unknown atenolol Adverse Reaction (Verified 08/01/17 17:30) Unknown bupropion HCl [From Wellbutrin] Adverse Reaction (Verified 08/01/17 17:30) Unknown fluoxetine HCl [From Prozac] Adverse Reaction (Verified 08/01/17 17:30) Unknown meloxicam [From Mobic] Adverse Reaction (Verified 08/01/17 17:30) Unknown metoprolol Adverse Reaction (Verified 08/01/17 17:30) Unknown pregabalin [From Lyrica] Adverse Reaction (Verified 08/01/17 17:30) Unknown quetiapine fumarate [From Seroquel] Adverse Reaction (Verified 08/01/17 17:30) Unknown quinapril HCl [From Accupril] Adverse Reaction (Verified 08/01/17 17:30) Unknown risperidone Adverse Reaction (Verified 08/01/17 17:30) Unknown rofecoxib [From Vioxx] Adverse Reaction (Verified 08/01/17 17:30) Unknown sitagliptin phosphate [From Januvia] Adverse Reaction (Verified 08/01/17 17:30) Unknown venlafaxine HCl [From Effexor] Adverse Reaction (Verified 08/01/17 17:30) Unknown Medications to take at Discharge Aripiprazole 10 mg PO DAILY 12/02/14 Aspirin [Adult Low Dose Aspirin EC] 81 mg PO DAILY 12/02/14 Duloxetine HCl 60 mg PO DAILY 12/02/14 Furosemide 20 mg PO DAILY 12/02/14 Linagliptin [Tradjenta] 5 mg PO DAILY 12/02/14 Potassium Chloride [K-Dur] 10 meq PO DAILY 12/02/14 Ranitidine [Zantac] 150 mg PO BID 12/02/14 Spironolactone [Aldactone] 25 mg PO DAILY 12/02/14 Baclofen 10 mg PO BID 08/01/17 Diclofenac Sodium 75 mg PO BID 08/01/17 Gabapentin [Neurontin] 300 mg PO QHS 08/01/17 Primidone [Mysoline] 50 mg PO QHS 08/01/17 traZODone [Desyrel] 50 - 100 mg PO QHS PRN 08/01/17 Amoxicillin/Potassium Clav [Augmentin 875-125 Tablet] 1 ea PO BID #10 tab 08/03/17 The following prescriptions were given: Amoxicillin/Potassium Clav [Augmentin 875-125 Tablet] 1 ea PO BID #10 tab Primary Care Physician: Vincent Negro MD [Primary Care Provider] - Please follow up with your Primary Care Physician in: within 2 weeks Proposed Discharge Date: 08/03/17
--- NOTE | 2017-08-03 11:25 | DCINST_ITS ---
- Discharge Diagnoses Current Active Problems: Current Active and Chronic Problems Cellulitis (Acute) Reason(s) for Visit for Discharge Instructions: Right flank and buttocks redness You will use the following diet at home:: Calorie/Carbohydrate Controlled ( specify 1200, 1400, etc), Cardiac Your food should be the consistency of: Regular Your liquids should be the consistency of: Regular/Thin Discharge Activity: Return to Normal Activity Call your doctor if you observe: Fever of 101 or Higher Additional Instructions: You are advised to complete your antibiotics. Continue general hygiene including daily bathing. Follow-up with your PCP with a log of your blood sugars Allergies/Adverse Reactions: Allergies vancomycin Allergy (Verified 08/02/17 05:42) Rash amlodipine Adverse Reaction (Verified 08/01/17 17:30) Unknown atenolol Adverse Reaction (Verified 08/01/17 17:30) Unknown bupropion HCl [From Wellbutrin] Adverse Reaction (Verified 08/01/17 17:30) Unknown fluoxetine HCl [From Prozac] Adverse Reaction (Verified 08/01/17 17:30) Unknown meloxicam [From Mobic] Adverse Reaction (Verified 08/01/17 17:30) Unknown metoprolol Adverse Reaction (Verified 08/01/17 17:30) Unknown pregabalin [From Lyrica] Adverse Reaction (Verified 08/01/17 17:30) Unknown quetiapine fumarate [From Seroquel] Adverse Reaction (Verified 08/01/17 17:30) Unknown quinapril HCl [From Accupril] Adverse Reaction (Verified 08/01/17 17:30) Unknown risperidone Adverse Reaction (Verified 08/01/17 17:30) Unknown rofecoxib [From Vioxx] Adverse Reaction (Verified 08/01/17 17:30) Unknown sitagliptin phosphate [From Januvia] Adverse Reaction (Verified 08/01/17 17:30) Unknown venlafaxine HCl [From Effexor] Adverse Reaction (Verified 08/01/17 17:30) Unknown Medications to take at Discharge Aripiprazole 10 mg PO DAILY 12/02/14 Aspirin [Adult Low Dose Aspirin EC] 81 mg PO DAILY 12/02/14 Duloxetine HCl 60 mg PO DAILY 12/02/14 Furosemide 20 mg PO DAILY 12/02/14 Linagliptin [Tradjenta] 5 mg PO DAILY 12/02/14 Potassium Chloride [K-Dur] 10 meq PO DAILY 12/02/14 Ranitidine [Zantac] 150 mg PO BID 12/02/14 Spironolactone [Aldactone] 25 mg PO DAILY 12/02/14 Baclofen 10 mg PO BID 08/01/17 Diclofenac Sodium 75 mg PO BID 08/01/17 Gabapentin [Neurontin] 300 mg PO QHS 08/01/17 Primidone [Mysoline] 50 mg PO QHS 08/01/17 traZODone [Desyrel] 50 - 100 mg PO QHS PRN 08/01/17 Amoxicillin/Potassium Clav [Augmentin 875-125 Tablet] 1 ea PO BID #10 tab The following prescriptions were given: Amoxicillin/Potassium Clav [Augmentin 875-125 Tablet] 1 ea PO BID #10 tab Primary Care Physician: Vincent Negro MD [Primary Care Provider] - Please follow up with your Primary Care Physician in: within 2 weeks Proposed Discharge Date: 08/03/17
--- NOTE | 2017-08-03 11:25 | PCM.DC.SUM ---
Discharge Date and Diagnosis Date of Admission: 08/01/17 Date of Discharge: 08/03/17 - Primary Discharge Diagnosis Active and Suspected Problems Cellulitis (Acute) - Secondary Discharge Diagnosis Chronic Problems History of pneumonia (Chronic) JEREMÍAS (obstructive sleep apnea) (Chronic) Lumbosacral neuritis (Chronic) Esophageal reflux (Chronic) Morbid obesity (Chronic) Hypertension (Chronic) Hospital Course and Treatment Imaging Results: Clinical Impression(s) from Imaging Studies Chest X-Ray 08/01/17 18:50 IMPRESSION: No acute thoracic pathology. Electronically Signed: Danial Jerniganmatt, at 19:44 EDT Tel , Service support , None Operations: None Procedures: None Summary of Care Provided: 57-year-old female past medical history of super super morbid obesity, BMI of 75.2, type 2 DM, history of recurrent cellulitis comes in with an episode of cellulitis. 1. Sepsis secondary to right buttock/flank pain(leukocytosis and fever on arrival), received vancomycin and Zosyn in the ED, continue on IV cefazolin for possible suspected streptococcal and less likely staph aureus cellulitis, patient improved clinically, blood cultures negative. 2. Right buttock and flank cellulitis, recurrent, unclear etiology for this admission's cellulitis, patient improved remarkably, was discharged home on Augmentin to complete 1 week total antibiotics. Hygiene and daily bathing recommended. 3. Type II DM, was on Tradjenta and metformin, last HbA1c is is 7.5 4. Debility, due to multiple comorbidities and especially super super morbid obesity, and to receive home health care for PT OT and nursing. Discharge Diet: Low fat/ Low Cholesterol, 2000 mg Sodium Diet, Carb Control Diet Discharge Activity: Return to Normal Activity Call your doctor if you observe: Fever of 101 or Higher Home Medications: Medications to take at Discharge Aripiprazole 10 mg PO DAILY 12/02/14 Aspirin [Adult Low Dose Aspirin EC] 81 mg PO DAILY 12/02/14 Duloxetine HCl 60 mg PO DAILY 12/02/14 Furosemide 20 mg PO DAILY 12/02/14 Linagliptin [Tradjenta] 5 mg PO DAILY 12/02/14 Potassium Chloride [K-Dur] 10 meq PO DAILY 12/02/14 Ranitidine [Zantac] 150 mg PO BID 12/02/14 Spironolactone [Aldactone] 25 mg PO DAILY 12/02/14 Baclofen 10 mg PO BID 08/01/17 Diclofenac Sodium 75 mg PO BID 08/01/17 Gabapentin [Neurontin] 300 mg PO QHS 08/01/17 Primidone [Mysoline] 50 mg PO QHS 08/01/17 traZODone [Desyrel] 50 - 100 mg PO QHS PRN 08/01/17 Amoxicillin/Potassium Clav [Augmentin 875-125 Tablet] 1 ea PO BID #10 tab 08/03/17 Following Prescrptions Were Given to Patient: Amoxicillin/Potassium Clav [Augmentin 875-125 Tablet] 1 ea PO BID #10 tab Primary Care Physician: Vincent Negro MD [Primary Care Provider] - Please follow up with your Primary Care Physician in: within 2 weeks Disposition: Home with Home Health Minutes spent on discharge:: 50 Patient Condition:: Stable Medical Necessity - Tobacco Use Smoking Status: Former smoker Tobacco Use: Non-smoker Meaningful Use Info Meaningful Use Diagnoses (Choose all that apply): None applicable Code Visit Inpatient E&M: 07246 Disch Hosp
[2017-08-03 13:05] VITALS: BP 144/80; PULSE 74; RESP 18; TEMP 37.2; O2SAT 98
[2017-08-03 13:54] LABS: Bedside Glucose 260 mg/dL (70-110)
[2017-08-07 12:29] LABS: Bedside Glucose 252 mg/dL (70-110)
[2017-08-07 12:30] LABS: Bedside Glucose 218 mg/dL (70-110)
== END 2017-08-03 13:05 | disposition home or self-care (01) | DRG 872 ==
LOC: ED 19:05 → MS3 23:24
PROVIDERS: Emergency Provider Emergency Medicine; Family Provider Family Medicine; PCP Family Medicine; Visit Provider Internal Medicine
DX: A41.9 Sepsis, unspecified organism (principal); L03.317 Cellulitis of buttock; Z68.45 Body mass index [BMI] 70 or greater, adult; E11.9 Type 2 diabetes mellitus without complications; Z79.84 Long term (current) use of oral hypoglycemic drugs; E66.01 Morbid (severe) obesity due to excess calories; Z87.891 Personal history of nicotine dependence; G47.33 Obstructive sleep apnea (adult) (pediatric); K21.9 Gastro-esophageal reflux disease without esophagitis; I10 Essential (primary) hypertension; R53.81 Other malaise; B95.5 Unspecified streptococcus as the cause of diseases classified elsewhere
CPT/HCPCS: 36415; 71046; 80048; 80053; 81001; 82962; 83036; 83605; 84484; 85025; 85610; 85730; 87040; 87086; 93005; 97110; 97116; 97162; 97165; 97530; 99285; J7030; J7040; J7050; A4216

== ENCOUNTER 2017-09-09 02:24 | Inpatient (IN) | payer MEDICARE, SELFPAY ==
[2017-09-09] VITALS (19 sets, daily range): BP systolic 102–145; BP diastolic 40–75; PULSE 84–127; RESP 14–22; TEMP 36.6–38.3; O2SAT 93–98; BMI 75.8; BMI 74.4
--- NOTE | 2017-09-09 02:38 | EKG12_ITS ---
Test Reason : WEAKNESS Blood Pressure : / mmHG Vent. Rate : 110 BPM Atrial Rate : 110 BPM P-R Int : 154 ms QRS Dur : 076 ms QT Int : 318 ms P-R-T Axes : 047 011 040 degrees QTc Int : 430 ms Sinus tachycardia Otherwise normal ECG Confirmed by MICHEL SIMS, ALEAH ([id number]), acquisitions editor KO ROMERO ([id number] on 09/11/2017 1:03:23 PM Referred By: AKIN Confirmed By:ALEAH PEARSON MD
--- NOTE | 2017-09-09 02:50 | ED.DCSUM_ITS ---
- ER Visit Summary Date of Service: 09/09/17 Chief Complaint: [Fever] History of Present Illness: The patient is a 57 F [who presents the emergency department with fever and left flank redness and pain. She has had recurrent cellulitis in this area. She was recently discharged from the hospital on August 03. Panda antibiotics till August 13. She has been doing well until yesterday when she started to feel ill and today she got a fever the pain and redness. She has been nauseated and weak but denies cough shortness of breath diarrhea or changes in urine] Physical Examination: [] Heart rate 103 temperature 100.9 other vitals within normal limits Obese female in no acute distress PERRL EOMI MMM NECK supple and nontender, no masses Regular tachycardic rhythm no murmur rub or gallop, no peripheral edema, symmetric radial pulses CTAB no respiratory distress ABDOMEN is soft and nontender, normal bowel sounds, no distension, no rebound or guarding SKIN patient has redness tenderness warmth from the gluteal crest around the left flank there is no palpable abscess or draining wound Alert and Oriented x3, CN II-XII in tact, no motor or sensory deficits, gait normal No lymphadenopathy Test Results: [EKG is sinus tachycardia with no acute ischemic changes or conduction abnormalities intervals are normal ST segments are unremarkable] Emergency Department Course and Treatment: [Septic workup was pursued and patient was given clindamycin directed at the source of her infection. Patient was given clindamycin. Screening labs show leukocytosis. She has hyperglycemia. Lactic acid was normal. She remained stable in the emergency department. She was given Tylenol for fever. She will be admitted to the hospital.] Treatment Plan: [] Disposition: [Admit] Impression: [1. Cellulitis 2. Sepsis] This note was generated with [employer] dictation software. It may contain incorrect words, spelling, and punctuation that were not noted in review of the chart prior to signing ED Disposition - Plan for ED Patient: Chief Complaint: General Illness Referrals: Vincent Negro MD [Primary Care Provider] -
[2017-09-09] MEDS: Acetaminophen 500 MG Tablet PO ×2 (03:02→21:00)
[2017-09-09 03:07] LABS: AST(SGOT) 8 U/L (15-37); Alanine Aminotransfer ALT/SGPT 20 U/L (13-56); Albumin, Serum 3.3 g/dL (3.2-5.0); Alkaline Phosphatase 141 U/L (45-117); Anion Gap 9 (5-15); BUN 20 mg/dL (7-18); Calcium,Total 9.2 mg/dL (8.5-10.1); Chloride 100 mmol/L (98-107); Creatinine, Serum 0.77 mg/dL (0.55-1.02); EST Glomerular Filtration Rate 82 mL/min (>60); Est Glom Filt Rate - Afr Amer 99 mL/min (>60); Estimated Creatinine Clearance 60.83 ml/min; Globulin 3.4 g/dL (2.2-4.2); Glucose 261 mg/dL (74-106); Potassium 4.2 mmol/L (3.5-5.1); Protein, Total 6.7 g/dL (6.4-8.2); Sodium Level 139 mmol/L (136-145)
[2017-09-09 03:08] LABS: Absolute Neutrophil Count 12.8 X10^3/uL (2.0-7.7); Basophil# 0.01 X10^3/uL; Basophil% 0.1 % (0-1); Eosinophil# 0.11 X10^3/uL; Eosinophils% 0.8 % (0-5); Hematocrit 39.1 % (37-47); Hemoglobin 12.8 g/dl (12.0-15.0); Lymphocyte % 3.5 % (19-41); Mean Corp Hgb Conc 32.7 g/gl (32-36); Mean Corpuscular Hgb 27.9 pg (27.0-32.0); Mean Corpuscular Volume 85.4 fL (81-99); Mean Platelet Vol. 11.2 fl (6.2-12.0); Monocyte# 0.71 X10^3/uL; Neutrophil # 12.78 X10^3/uL (2.7-7.7); Neutrophil % 90.3 % (47-70); Platelet Count 205 K/mm3 (150-450); Prothrombin Time (Protime)PT. 13.6 SECONDS (11.7-14.9); RBC Distribution Width CV 13.2 % (11.6-14.6); RBC Distribution Width SD 40.4 fl (35.1-43.9); Red Blood Count 4.58 M/mm3 (4.2-5.4); White Blood Count 14.2 K/mm3 (4.4-11.0)
[2017-09-09 03:09] LABS: Partial Thromboplast Time 31.5 Seconds (24.1-36.2)
[2017-09-09 03:14] LABS: Lactic Acid 1.7 mmol/L (0.4-2.0)
[2017-09-09 03:20] LABS: POSITIVE DIFFERENTIAL YES
[2017-09-09 03:21] LABS: Differential Indicated SCAN CRITERIA MET; POSITIVE COUNT NO; POSITIVE MORPHOLOGY NO
[2017-09-09 04:00] LABS: Red Blood Cells-Urine 0 SEEN /hpf (0-5)
--- NOTE | 2017-09-09 04:19 | PCM.HP.STD ---
Problem List (1) Cellulitis Status: Acute Qualifiers: (2) Esophageal reflux Status: Chronic (3) History of pneumonia Status: Chronic (4) Hypertension Status: Chronic (5) Lumbosacral neuritis Status: Chronic (6) Morbid obesity Status: Chronic (7) JEREMÍAS (obstructive sleep apnea) Status: Chronic History of Present Illness Date of Admission: 09/09/17 Chief Complaint: Left flank cellulitis The patient is a 57 year old female w/ h/o DMII, HTN, cellulitis, and obesity admitted for sepsis secondary to cellulitis. She noted redness on her left flank yesterday around midnight. Nothing appeared to make it better or worse. She was admitted last month for cellulitis and was discharged with Augmentin. She finished a 10 days course of augmentin on August 13. She has fever last night. She also has chill. She has been fatigue and nausea but no vomit. Past Medical History Past Medical History (Chronic Problems): Chronic Problems History of pneumonia (Chronic) JEREMÍAS (obstructive sleep apnea) (Chronic) Lumbosacral neuritis (Chronic) Esophageal reflux (Chronic) Morbid obesity (Chronic) Hypertension (Chronic) Allergies vancomycin Allergy (Verified 09/09/17 02:33) Rash amlodipine Adverse Reaction (Verified 09/09/17 02:33) Unknown atenolol Adverse Reaction (Verified 09/09/17 02:33) Unknown bupropion HCl [From Wellbutrin] Adverse Reaction (Verified 09/09/17 02:33) Unknown fluoxetine HCl [From Prozac] Adverse Reaction (Verified 09/09/17 02:33) Unknown meloxicam [From Mobic] Adverse Reaction (Verified 09/09/17 02:33) Unknown metoprolol Adverse Reaction (Verified 09/09/17 02:33) Unknown pregabalin [From Lyrica] Adverse Reaction (Verified 09/09/17 02:33) Unknown quetiapine fumarate [From Seroquel] Adverse Reaction (Verified 09/09/17 02:33) Unknown quinapril HCl [From Accupril] Adverse Reaction (Verified 09/09/17 02:33) Unknown risperidone Adverse Reaction (Verified 09/09/17 02:33) Unknown rofecoxib [From Vioxx] Adverse Reaction (Verified 09/09/17 02:33) Unknown sitagliptin phosphate [From Januvia] Adverse Reaction (Verified 09/09/17 02:33) Unknown venlafaxine HCl [From Effexor] Adverse Reaction (Verified 09/09/17 02:33) Unknown Home Medications: Ambulatory Orders Medication Instructions Recorded Aripiprazole 10 mg PO DAILY 12/02/14 Aspirin [Adult Low Dose Aspirin EC] 81 mg PO DAILY 12/02/14 Duloxetine HCl 60 mg PO DAILY 12/02/14 Furosemide 20 mg PO DAILY 12/02/14 Linagliptin [Tradjenta] 5 mg PO DAILY 12/02/14 Potassium Chloride [K-Dur] 10 meq PO DAILY 12/02/14 Ranitidine [Zantac] 150 mg PO BID 12/02/14 Spironolactone [Aldactone] 25 mg PO DAILY 12/02/14 Baclofen 10 mg PO BID 08/01/17 Gabapentin [Neurontin] 300 mg PO BID 08/01/17 Primidone [Mysoline] 50 mg PO QHS 08/01/17 traZODone [Desyrel] 50 mg PO QHS PRN 08/01/17 Cetirizine HCl [Zyrtec] 10 mg PO DAILY PRN PRN 09/09/17 Glimepiride [Amaryl] 4 mg PO DAILY 09/09/17 Hydrocodone/Acetaminophen [[employer] 1 each PO BID PRN PRN 09/09/17 5-325 Tablet] Indomethacin [Indocin] 25 mg PO BID 09/09/17 Insulin Detemir [Levemir] 20 unit SQ QHS 09/09/17 Nitroglycerin [Nitrostat] 0.4 mg SL PRN PRN 09/09/17 Surgical History: cholecystectomy Lives: Spouse/ Significant Other Smoking Status: Never smoker Alcohol: None Drugs: None - *Family History Sibling History Items: Heart Disease Review of Systems Constitutional: Reports: Chills, Fever. Denies: Weight Change HEENT: Denies: Head Aches, Sinus Congestion, Sinus Drainage Cardiovascular: Denies: Chest Pain, Palpitations Respiratory: Denies: Cough, Shortness of breath at rest, Sputum production Gastrointestinal: Denies: Abdominal Pain, Nausea, Vomiting Genitourinary: Denies: Dysuria Musculoskeletal: Denies: Joint Pain, Joint Tenderness Skin: Reports: Skin Changes. Denies: Rash, Wounds Neurological: Denies: Numbness, Tingling, Focal weakness Psychiatric: Denies: Anxiety, Depression, Homicidal Ideations, Suicidal Ideations Hematologic/ Lymphatic: Denies: Easy Bruising, Easy Bleeding VTE Information - Inpt Only VTE Present on Admission: No VTE Mechan Device Prophylaxis: SCD's VTE Pharm Prophylaxis ordered?: Yes - Physical Exam General: Alert, Oriented x3, Cooperative HEENT: Atraumatic, PERRLA, EOMI, Normocephalic Neck: Supple, No JVD, Negative Carotid Bruits Lungs: Clear to auscultation, Normal air movement Cardiovascular: Regular rate, No murmurs Abdomen: Bowel Sounds Present, Soft, Non Tender Extremities: No edema, Capillary Refill Less than 3 Seconds Skin: - - Cellulitis on left back Musculoskeletal: No Tenderness to Palpation of Joints or Extremities Neurological: Cranial nerves II-XII grossly intact Psych/Mental Status: Normal Affect, Appropriate Vital Signs Temp Pulse Resp BP Pulse Ox 99.6 F H 113 H 17 108/66 95 09/09/17 02:38 09/09/17 03:38 09/09/17 03:38 09/09/17 03:38 09/09/17 02:38 Oxygen Delivery Method Room Air Weight: 182 kg Body Mass Index (BMI) 75.8 Laboratory Tests Past 24 Hrs 09/09/17 09/09/17 09/09/17 02:35 02:35 02:35 WBC 14.2 H RBC 4.58 Hgb 12.8 Hct 39.1 MCV 85.4 MCH 27.9 MCHC 32.7 RDW 13.2 RDW Differential 40.4 Plt Count 205 MPV 11.2 Immature Gran % (Auto) 0.300 Neut % (Auto) 90.3 H Lymph % (Auto) 3.5 L [place] % (Auto) 5.0 Eos % (Auto) 0.8 Baso % (Auto) 0.1 Absolute Neuts (auto) 12.8 H Absolute Lymphs (auto) 0.50 L Total Counted Not Reportable PT 13.6 INR 1.0 APTT 31.5 Sodium 139 Potassium 4.2 Chloride 100 Carbon Dioxide 30.0 Anion Gap 9 BUN 20 H Creatinine 0.77 Estim Creat Clear Calc 60.83 Est GFR (MDRD) Af Amer 99 Est GFR (MDRD) Non-Af 82 BUN/Creatinine Ratio 26.0 H Glucose 261 H Lactic Acid Calcium 9.2 Total Bilirubin 0.50 AST 8 L ALT 20 Alkaline Phosphatase 141 H Total Protein 6.7 Albumin 3.3 Globulin 3.4 Albumin/Globulin Ratio 1.0 Urine Color Urine Clarity Urine pH Ur Specific [place] Urine Protein Urine Glucose (UA) Urine Ketones Urine Occult Blood Urine Nitrite Urine Bilirubin Urine Urobilinogen Ur Leukocyte Esterase Urine RBC Urine WBC Ur Squamous Epith Cells Urine Bacteria Urine Mucus 09/09/17 09/09/17 02:35 03:56 WBC RBC Hgb Hct MCV MCH MCHC RDW RDW Differential Plt Count MPV Immature Gran % (Auto) Neut % (Auto) Lymph % (Auto) [place] % (Auto) Eos % (Auto) Baso % (Auto) Absolute Neuts (auto) Absolute Lymphs (auto) Total Counted PT INR APTT Sodium Potassium Chloride Carbon Dioxide Anion Gap BUN Creatinine Estim Creat Clear Calc Est GFR (MDRD) Af Amer Est GFR (MDRD) Non-Af BUN/Creatinine Ratio Glucose Lactic Acid 1.7 Calcium Total Bilirubin AST ALT Alkaline Phosphatase Total Protein Albumin Globulin Albumin/Globulin Ratio Urine Color Pending Urine Clarity Pending Urine pH Pending Ur Specific [place] Pending Urine Protein Pending Urine Glucose (UA) Pending Urine Ketones Pending Urine Occult Blood Pending Urine Nitrite Pending Urine Bilirubin Pending Urine Urobilinogen Pending Ur Leukocyte Esterase Pending Urine RBC Pending Urine WBC Pending Ur Squamous Epith Cells Pending Urine Bacteria Pending Urine Mucus Pending Assessment/Plan All Active Problems Cellulitis (Acute) 57 year old female w/ h/o DMII, HTN, cellulitis, and obesity admitted for sepsis secondary to cellulitis. 1) Sepsis secondary to cellulitis: Recurrent cellulitis. Will start clindamycin. Cultures pending. Will consider Zosyn if no improvement. 2) DMII: Resume home meds. Sliding scale and accucheck. 3) HTN: SBP 110s. Resume home meds. 4) Prophylaxis: SCD / heparin.
[2017-09-09 04:23] LABS: Color, Urine Yellow (Yellow); Glucose, Dipstick 250 mg/dl (Normal); Ketone-Dipstick 5 mg/dl (Negative); Leukocyte Esterase-Dipstick Negative /ul (Negative); Nitrite-Dipstick Negative (Negative); Occult Blood-Urine Negative /ul (Negative); Protein-Dipstick 15 mg/dl (Negative); Specific Gravity, Urine 1.025 (1.002-1.030); Urine Bilirubin Dipstick Negative (Negative); Urine Clarity Sl. Cloudy (Clear); Urine Urobilinogen Normal (Normal)
[2017-09-09 04:29] LABS: Mucous, Urine 2+ /hpf (<or=2+); Squamous Epithelial Cells - UA 0-5 SEEN /hpf (5-10)
[2017-09-09 04:30] LABS: Bacteria RARE /hpf (None Seen); White Blood Cells 0-5 SEEN /hpf (0-5)
[2017-09-09 06:21] LABS: Amphetamine Urine VISTA NEGATIVE (<1000 ng/mL); Barbiturate Urine VISTA NEGATIVE (< 200 ng/mL); Benzodiazepine Urine VISTA NEGATIVE (< 200 ng/mL); Cocaine Urine VISTA NEGATIVE (< 300 ng/mL); Ecstacy Urine VISTA NEGATIVE (< 500 ng/mL); Methadone Urine VISTA NEGATIVE (< 300 ng/mL); PCP Urine VISTA NEGATIVE (< 25 ng/mL); THC Urine VISTA NEGATIVE (< 50 ng/mL); Vista UDS pH Range 5
[2017-09-09] MEDS: Heparin Injection (Vial) 5,000 UNIT/ML VIAL 5000 UNIT SC ×3 (06:41→20:57)
[2017-09-09] MEDS: Insulin Lispro 100 UNIT/ML INSULN.PEN SC ×3 (06:42→16:57)
[2017-09-09 06:55] LABS: Absolute Lymphocyte Count 0.72 X10^3/ul (0.83-4.51); Absolute Neutrophil Count 10.6 X10^3/uL (2.0-7.7); Basophil# 0.01 X10^3/uL; Basophil% 0.1 % (0-1); Eosinophil# 0.08 X10^3/uL; Eosinophils% 0.7 % (0-5); Hematocrit 36.4 % (37-47); Lymphocyte # 0.72 X10^3/ul (4.0); Mean Corpuscular Hgb 28.2 pg (27.0-32.0); Mean Corpuscular Volume 85.4 fL (81-99); Monocyte# 0.62 X10^3/uL; Monocyte% 5.2 % (0-10); Neutrophil # 10.55 X10^3/uL (2.7-7.7); Neutrophil % 87.8 % (47-70); Platelet Count 185 K/mm3 (150-450); RBC Distribution Width CV 13.1 % (11.6-14.6); RBC Distribution Width SD 40.2 fl (35.1-43.9); Red Blood Count 4.26 M/mm3 (4.2-5.4)
[2017-09-09 06:57] LABS: POSITIVE COUNT NO; POSITIVE DIFFERENTIAL NO; POSITIVE MORPHOLOGY NO
[2017-09-09 07:16] LABS: Bedside Glucose 217 mg/dL (70-110)
[2017-09-09 07:23] LABS: Anion Gap 8 (5-15); BUN 19 mg/dL (7-18); BUN/Creat Ratio 28.4 RATIO (10-20); Calcium,Total 8.9 mg/dL (8.5-10.1); Chloride 102 mmol/L (98-107); Creatinine, Serum 0.67 mg/dL (0.55-1.02); EST Glomerular Filtration Rate 97 mL/min (>60); Est Glom Filt Rate - Afr Amer 117 mL/min (>60); Estimated Creatinine Clearance 69.91 ml/min; Glucose 219 mg/dL (74-106); Sodium Level 140 mmol/L (136-145)
[2017-09-09] MEDS: ARIPiprazole 5 MG Tablet 10 MG PO (09:36)
[2017-09-09] MEDS: LINAGLIPTIN 5 MG TABLET PO (09:36)
[2017-09-09] MEDS: Famotidine 20 MG Tablet PO ×2 (09:36→20:59)
[2017-09-09] MEDS: Furosemide 20 MG Tablet PO (09:37)
[2017-09-09] MEDS: Gabapentin 300 MG Capsule PO ×2 (09:37→20:59)
[2017-09-09] MEDS: Baclofen 10 MG Tablet PO ×2 (09:37→20:58)
[2017-09-09] MEDS: DULoxetine Hcl 60 MG Capsule PO (09:37)
[2017-09-09] MEDS: Aspirin E.C. 81 MG Tablet PO (09:37)
[2017-09-09] MEDS: Glimepiride 4 MG Tablet PO (09:37)
[2017-09-09] MEDS: Spironolactone 25 MG Tablet PO (09:37)
[2017-09-09] MEDS: HYDROcodone Bitartrate/Apap 5/325 Tablet PO (09:45)
[2017-09-09] MEDS: oxyCODONE 5 MG Tablet PO ×2 (11:55→21:00)
[2017-09-09 11:56] LABS: Bedside Glucose 228 mg/dL (70-110)
--- NOTE | 2017-09-09 14:01 | PCM.PN.HOSP ---
Subjective: Patient was seen and examined. She feels well. Complains of redness and tenderness in the posterior aspect of the thighs. Denies any fever or chills. No acute events overnight. Vitals/I&O's: Vital Signs Temp Pulse Resp BP Pulse Ox 97.8 F 91 18 102/55 L 98 09/09/17 09:31 09/09/17 12:05 09/09/17 09:31 09/09/17 09:31 09/09/17 09:31 Oxygen Delivery Method Room Air Weight: 178.7 kg Body Mass Index (BMI) 74.4 Intake and Output for Last 24 Hours 09/07/17 09/08/17 09/09/17 23:59 23:59 23:59 Intake Total 740 / 740 Output Total 800 / 800 Balance -60 / -60 General: Alert, Oriented x3, Cooperative, No apparent distress, - - Morbidly obese HEENT: Atraumatic, PERRLA, EOMI, Normocephalic Oral: Moist Mucosa Neck: Supple Lungs: Clear to auscultation, Normal air movement Cardiovascular: Regular rate, Regular Rhythm, Normal S1, Normal S2, No murmurs Abdomen: Bowel Sounds Present, Soft, Non Tender, Non-Distended, No Hepato-splenomegaly, Passing Flatus Extremities: No edema Skin: No rashes, No breakdown Musculoskeletal: No Tenderness to Palpation of Joints or Extremities Lymphatic: No Cervical, Supraclavicular, or Inguinal Adenopathy Neurological: Cranial nerves II-XII grossly intact Psych/Mental Status: Normal Affect, Appropriate Laboratory Results 09/09/17 06:38: POC Glucose 217 H 09/09/17 06:42: WBC 12.0 H, RBC 4.26, Hgb 12.0, Hct 36.4 L, MCV 85.4, MCH 28.2, MCHC 33.0, RDW 13.1, RDW Differential 40.2, Plt Count 185, MPV 11.0, Immature Gran % (Auto) 0.200, Neut % (Auto) 87.8 H, Lymph % (Auto) 6.0 L, [place] % (Auto) 5.2, Eos % (Auto) 0.7, Baso % (Auto) 0.1, Absolute Neuts (auto) 10.6 H, Absolute Lymphs (auto) 0.72 L, Total Counted Not Reportable 09/09/17 06:42: Sodium 140, Potassium 4.0, Chloride 102, Carbon Dioxide 30.0, Anion Gap 8, BUN 19 H, Creatinine 0.67, Estim Creat Clear Calc 69.91, Est GFR (MDRD) Af Amer 117, Est GFR (MDRD) Non-Af 97, BUN/Creatinine Ratio 28.4 H, Glucose 219 H, Calcium 8.9 09/09/17 11:47: POC Glucose 228 H Current Medications Hydrocodone Bitart/Acetaminophen ([place] 5mg-325mg) 1 tablet PO BID PRN PRN PRN Reason: PAIN Last Admin: 09/09/17 09:45 Dose: 1 tablet Aripiprazole (Abilify) 10 mg PO DAILY [facility] Last Admin: 09/09/17 09:36 Dose: 10 mg Aspirin (Ecotrin) 81 mg PO DAILY [facility] Last Admin: 09/09/17 09:37 Dose: 81 mg Baclofen (Lioresal) 10 mg PO BID [facility] Last Admin: 09/09/17 09:37 Dose: 10 mg Dextrose (D50w Syringe) 0 gm IV X1 PRN; Protocol PRN Reason: Hypoglycemia Duloxetine HCl (Cymbalta) 60 mg PO DAILY [facility] Last Admin: 09/09/17 09:37 Dose: 60 mg Famotidine (Pepcid) 20 mg PO BID [facility] Last Admin: 09/09/17 09:36 Dose: 20 mg Furosemide (Lasix) 20 mg PO DAILY [facility] Last Admin: 09/09/17 09:37 Dose: 20 mg Gabapentin (Neurontin) 300 mg PO BID [facility] Last Admin: 09/09/17 09:37 Dose: 300 mg Glimepiride (Amaryl) 4 mg PO DAILY [facility] Last Admin: 09/09/17 09:37 Dose: 4 mg Glucagon () 1 mg IM .X1 PRN PRN Reason: Hypoglycemia Heparin Sodium (Porcine) (Heparin Na) 5,000 unit SC Q8 [facility] Last Admin: 09/09/17 06:41 Dose: 5,000 u Clindamycin Phosphate 900 mg/ (Dextrose) 106 mls @ 75 mls/hr IV Q8 [facility] Insulin Glargine (Lantus (Bkc)) 20 units SC QHS [facility] Insulin Human Lispro (Humalog Kwikpen (Bkc)) 0 unit SC TIDAC [facility] PRN Reason: Protocol Last Admin: 09/09/17 11:49 Dose: 2 units Linagliptin (Tradjenta) 5 mg PO DAILY [facility] Last Admin: 09/09/17 09:36 Dose: 5 mg Loratadine (Claritin) 10 mg PO DAILY PRN PRN Magnesium Hydroxide (Milk Of Magnesia) 30 ml PO DAILY PRN PRN PRN Reason: Constipation Oxycodone HCl (Oxyir) 5 mg PO Q4H PRN PRN PRN Reason: Moderate Pain (pain scale 4-5) Last Admin: 09/09/17 11:55 Dose: 5 mg Potassium Chloride (K-Dur) 10 meq PO DAILY [facility] Last Admin: 09/09/17 09:37 Dose: 10 meq Primidone (Mysoline) 50 mg PO QHS [facility] Spironolactone (Aldactone) 25 mg PO DAILY [facility] Last Admin: 09/09/17 09:37 Dose: 25 mg Trazodone HCl (Desyrel) 50 mg PO QHS PRN PRN Reason: SLEEP Medical Necessity - Tobacco Use Smoking Status: Former smoker Assessment/Plan All Active Problems Cellulitis (Acute) 57-year-old morbidly obese patient with past medical history of type II DM, hypertension, recurrent cellulitis comes in with another episode of cellulitis this time of the posterior thighs. 1. Sepsis secondary to recurrent cellulitis, improving, on IV antibiotics, vitals are stable 2. Recurrent cellulitis, in a morbidly obese patient, likely exacerbation might be uncontrolled blood sugar, on insulin as well as oral hypoglycemic agents, will make changes to her basal insulin and start on pre-meal insulin as well as continue home oral hypoglycemic agents, will monitor blood sugars closely We will consult infectious disease for recommendations to prevent recurrent cellulitis 3. Type II DM, blood sugars are uncontrolled, on home regimen, changes will be made to basal insulin as well as pre-insulin, continue with Accu-Cheks with insulin sliding scale 4. Hypertension, controlled, continue home medications 5. JEREMÍAS on CPAP 6. DVT prophylaxis -with heparin subcu Code Visit Inpatient E&M: [id number] [facility] Hosp L2
--- NOTE | 2017-09-09 14:14 | PN_ITS ---
Subjective: Patient was seen and examined. She feels well. Complains of redness and tenderness in the posterior aspect of the thighs. Denies any fever or chills. No acute events overnight. Vitals/I&O's: Vital Signs Temp Pulse Resp BP Pulse Ox 97.8 F 91 18 102/55 L 98 09/09/17 09:31 09/09/17 12:05 09/09/17 09:31 09/09/17 09:31 09/09/17 09:31 Oxygen Delivery Method Room Air Weight: 178.7 kg Body Mass Index (BMI) 74.4 Intake and Output for Last 24 Hours 09/07/17 09/08/17 09/09/17 23:59 23:59 23:59 Intake Total 740 / 740 Output Total 800 / 800 Balance -60 / -60 General: Alert, Oriented x3, Cooperative, No apparent distress, - - Morbidly obese HEENT: Atraumatic, PERRLA, EOMI, Normocephalic Oral: Moist Mucosa Neck: Supple Lungs: Clear to auscultation, Normal air movement Cardiovascular: Regular rate, Regular Rhythm, Normal S1, Normal S2, No murmurs Abdomen: Bowel Sounds Present, Soft, Non Tender, Non-Distended, No Hepato- splenomegaly, Passing Flatus Extremities: No edema Skin: No rashes, No breakdown Musculoskeletal: No Tenderness to Palpation of Joints or Extremities Lymphatic: No Cervical, Supraclavicular, or Inguinal Adenopathy Neurological: Cranial nerves II-XII grossly intact Psych/Mental Status: Normal Affect, Appropriate Laboratory Results 09/09/17 06:38: POC Glucose 217 H 09/09/17 06:42: WBC 12.0 H, RBC 4.26, Hgb 12.0, Hct 36.4 L, MCV 85.4, MCH 28.2, MCHC 33.0, RDW 13.1, RDW Differential 40.2, Plt Count 185, MPV 11.0, Immature Gran % (Auto) 0.200, Neut % (Auto) 87.8 H, Lymph % (Auto) 6.0 L, [place] % (Auto) 5.2, Eos % (Auto) 0.7, Baso % (Auto) 0.1, Absolute Neuts (auto) 10.6 H, Absolute Lymphs (auto) 0.72 L, Total Counted Not Reportable 09/09/17 06:42: Sodium 140, Potassium 4.0, Chloride 102, Carbon Dioxide 30.0, Anion Gap 8, BUN 19 H, Creatinine 0.67, Estim Creat Clear Calc 69.91, Est GFR ( MDRD) Af Amer 117, Est GFR (MDRD) Non-Af 97, BUN/Creatinine Ratio 28.4 H, Glucose 219 H, Calcium 8.9 09/09/17 11:47: POC Glucose 228 H Current Medications Hydrocodone Bitart/Acetaminophen ([place] 5mg-325mg) 1 tablet PO BID PRN PRN PRN Reason: PAIN Last Admin: 09/09/17 09:45 Dose: 1 tablet Aripiprazole (Abilify) 10 mg PO DAILY [facility] Last Admin: 09/09/17 09:36 Dose: 10 mg Aspirin (Ecotrin) 81 mg PO DAILY [facility] Last Admin: 09/09/17 09:37 Dose: 81 mg Baclofen (Lioresal) 10 mg PO BID [facility] Last Admin: 09/09/17 09:37 Dose: 10 mg Dextrose (D50w Syringe) 0 gm IV X1 PRN; Protocol PRN Reason: Hypoglycemia Duloxetine HCl (Cymbalta) 60 mg PO DAILY [facility] Last Admin: 09/09/17 09:37 Dose: 60 mg Famotidine (Pepcid) 20 mg PO BID [facility] Last Admin: 09/09/17 09:36 Dose: 20 mg Furosemide (Lasix) 20 mg PO DAILY [facility] Last Admin: 09/09/17 09:37 Dose: 20 mg Gabapentin (Neurontin) 300 mg PO BID [facility] Last Admin: 09/09/17 09:37 Dose: 300 mg Glimepiride (Amaryl) 4 mg PO DAILY [facility] Last Admin: 09/09/17 09:37 Dose: 4 mg Glucagon () 1 mg IM .X1 PRN PRN Reason: Hypoglycemia Heparin Sodium (Porcine) (Heparin Na) 5,000 unit SC Q8 [facility] Last Admin: 09/09/17 06:41 Dose: 5,000 u Clindamycin Phosphate 900 mg/ (Dextrose) 106 mls @ 75 mls/hr IV Q8 [facility] Insulin Glargine (Lantus (Bkc)) 20 units SC QHS [facility] Insulin Human Lispro (Humalog Kwikpen (Bkc)) 0 unit SC TIDAC [facility] PRN Reason: Protocol Last Admin: 09/09/17 11:49 Dose: 2 units Linagliptin (Tradjenta) 5 mg PO DAILY [facility] Last Admin: 09/09/17 09:36 Dose: 5 mg Loratadine (Claritin) 10 mg PO DAILY PRN PRN Magnesium Hydroxide (Milk Of Magnesia) 30 ml PO DAILY PRN PRN PRN Reason: Constipation Oxycodone HCl (Oxyir) 5 mg PO Q4H PRN PRN PRN Reason: Moderate Pain (pain scale 4-5) Last Admin: 09/09/17 11:55 Dose: 5 mg Potassium Chloride (K-Dur) 10 meq PO DAILY [facility] Last Admin: 09/09/17 09:37 Dose: 10 meq Primidone (Mysoline) 50 mg PO QHS [facility] Spironolactone (Aldactone) 25 mg PO DAILY [facility] Last Admin: 09/09/17 09:37 Dose: 25 mg Trazodone HCl (Desyrel) 50 mg PO QHS PRN PRN Reason: SLEEP Medical Necessity - Tobacco Use Smoking Status: Former smoker Assessment/Plan All Active Problems Cellulitis (Acute) 57-year-old morbidly obese patient with past medical history of type II DM, hypertension, recurrent cellulitis comes in with another episode of cellulitis this time of the posterior thighs. 1. Sepsis secondary to recurrent cellulitis, improving, on IV antibiotics, vitals are stable 2. Recurrent cellulitis, in a morbidly obese patient, likely exacerbation might be uncontrolled blood sugar, on insulin as well as oral hypoglycemic agents, will make changes to her basal insulin and start on pre-meal insulin as well as continue home oral hypoglycemic agents, will monitor blood sugars closely We will consult infectious disease for recommendations to prevent recurrent cellulitis 3. Type II DM, blood sugars are uncontrolled, on home regimen, changes will be made to basal insulin as well as pre-insulin, continue with Accu-Cheks with insulin sliding scale 4. Hypertension, controlled, continue home medications 5. JEREMÍAS on CPAP 6. DVT prophylaxis -with heparin subcu Code Visit Inpatient E&M: [id number] [facility] Hosp L2
[2017-09-09] MEDS: Cefazolin 1 GM/50 ML BAG IV (14:59)
[2017-09-09] MEDS: Insulin Lispro 100 UNIT/ML INSULN.PEN SQ (16:56)
[2017-09-09 17:00] LABS: Bedside Glucose 190 mg/dL (70-110)
[2017-09-09] MEDS: 0.9% Normal Saline 1,000 ML 75 ML IV (18:58)
[2017-09-09 19:11] LABS: Lactic Acid 2.6 mmol/L (0.4-2.0)
--- NOTE | 2017-09-09 19:11 | NURSING ---
NEW LACTIC ACID OBTAINED PT,S HR HAS BEEN INCREASING ALL SHIFT AND IN 140-150 WHEN UP AND 120'S AT REST - LACTIC BACK AT 2.6 AND MAN SALCIDO HAS TEXTED DR ARREAGA WITH RESULTS
[2017-09-09] MEDS: Primidone 50 MG Tablet PO (20:59)
[2017-09-09] MEDS: levoFLOXacin IV 500 MG/100 ML BAG 100 MG IV (21:01)
[2017-09-09 21:26] LABS: Bedside Glucose 264 mg/dL (70-110)
[2017-09-09 22:29] LABS: Reflex Lactate? Y
[2017-09-10] VITALS (12 sets, daily range): BP systolic 115–134; BP diastolic 54–68; PULSE 77–91; RESP 16–20; TEMP 36.4–36.8; O2SAT 98
[2017-09-10] MEDS: 0.9% Normal Saline 1,000 ML 125 ML IV (03:49)
[2017-09-10] MEDS: oxyCODONE 5 MG Tablet PO ×4 (03:49→23:51)
[2017-09-10 05:55] LABS: Absolute Neutrophil Count 6.8 X10^3/uL (2.0-7.7); Eosinophil# 0.03 X10^3/uL; Eosinophils% 0.4 % (0-5); Hematocrit 37.9 % (37-47); Hemoglobin 12.2 g/dl (12.0-15.0); Mean Corp Hgb Conc 32.2 g/gl (32-36); Mean Corpuscular Hgb 27.9 pg (27.0-32.0); Mean Corpuscular Volume 86.5 fL (81-99); Mean Platelet Vol. 10.7 fl (6.2-12.0); Monocyte# 0.47 X10^3/uL; Monocyte% 5.6 % (0-10); Neutrophil # 6.83 X10^3/uL (2.7-7.7); Neutrophil % 81.9 % (47-70); Platelet Count 157 K/mm3 (150-450); RBC Distribution Width CV 13.5 % (11.6-14.6); Red Blood Count 4.38 M/mm3 (4.2-5.4); White Blood Count 8.3 K/mm3 (4.4-11.0)
[2017-09-10 06:09] LABS: Anion Gap 7 (5-15); BUN 14 mg/dL (7-18); BUN/Creat Ratio 25.9 RATIO (10-20); Calcium,Total 8.6 mg/dL (8.5-10.1); Chloride 104 mmol/L (98-107); Creatinine, Serum 0.54 mg/dL (0.55-1.02); EST Glomerular Filtration Rate 123 mL/min (>60); Est Glom Filt Rate - Afr Amer 149 mL/min (>60); Estimated Creatinine Clearance 86.74 ml/min; Glucose 164 mg/dL (74-106); Potassium 3.7 mmol/L (3.5-5.1); Sodium Level 142 mmol/L (136-145)
[2017-09-10 06:10] LABS: Lactic Acid 0.6 mmol/L (0.4-2.0)
[2017-09-10 06:35] LABS: POSITIVE COUNT NO; POSITIVE DIFFERENTIAL NO; POSITIVE MORPHOLOGY NO
[2017-09-10] MEDS: Heparin Injection (Vial) 5,000 UNIT/ML VIAL 5000 UNIT SC ×3 (06:43→21:59)
--- NOTE | 2017-09-10 07:26 | PN_ITS ---
Subjective: Patient was seen and examined. Denies any new complaints. Denies fever or chills or shortness of breath or dizziness or chest pain. Objective: Physical exam: General: Alert, Oriented x3, Cooperative, No apparent distress, - - Morbidly obese HEENT: Atraumatic, PERRLA, EOMI, Normocephalic Oral: Moist Mucosa Neck: Supple Lungs: Clear to auscultation, Normal air movement Cardiovascular: Regular rate, Regular Rhythm, Normal S1, Normal S2, No murmurs Abdomen: Bowel Sounds Present, Soft, Non Tender, Non-Distended, No Hepato- splenomegaly, Passing Flatus Extremities: No edema Skin: Erythema over the posterior thighs, right buttocks and hips. Musculoskeletal: No Tenderness to Palpation of Joints or Extremities Lymphatic: No Cervical, Supraclavicular, or Inguinal Adenopathy Neurological: Cranial nerves II-XII grossly intact Psych/Mental Status: Normal Affect, Appropriate Vitals/I&O's: Vital Signs Temp Pulse Resp BP Pulse Ox 98.1 F 82 18 115/54 L 98 09/10/17 02:10 09/10/17 04:05 09/10/17 02:10 09/10/17 02:10 09/10/17 02:10 Oxygen Flow Rate (L/min) 2 Oxygen Delivery Method Nasal Cannula Weight: 178.7 kg Body Mass Index (BMI) 74.4 Intake and Output for Last 24 Hours 09/08/17 09/09/17 09/10/17 23:59 23:59 23:59 Intake Total 960 / 960 1900 Output Total 1500 / 1500 Balance -540 / -540 1900 Laboratory Results 09/09/17 11:47: POC Glucose 228 H 09/09/17 16:46: POC Glucose 190 H 09/09/17 18:22: Lactic Acid 2.6 H 09/09/17 20:56: POC Glucose 264 H 09/10/17 05:25: WBC 8.3, RBC 4.38, Hgb 12.2, Hct 37.9, MCV 86.5, MCH 27.9, MCHC 32.2, RDW 13.5, RDW Differential 43.0, Plt Count 157, MPV 10.7, Immature Gran % (Auto) 0.100, Neut % (Auto) 81.9 H, Lymph % (Auto) 12.0 L, [place] % (Auto) 5.6, Eos % (Auto) 0.4, Baso % (Auto) 0.0, Absolute Neuts (auto) 6.8, Absolute Lymphs (auto) 1.00, Total Counted Not Reportable 09/10/17 05:25: Sodium 142, Potassium 3.7, Chloride 104, Carbon Dioxide 31.0, Anion Gap 7, BUN 14, Creatinine 0.54 L, Estim Creat Clear Calc 86.74, Est GFR ( MDRD) Af Amer 149, Est GFR (MDRD) Non-Af 123, BUN/Creatinine Ratio 25.9 H, Glucose 164 H, Calcium 8.6 09/10/17 05:25: Lactic Acid 0.6 Current Medications Acetaminophen (Tylenol) 500 mg PO Q4H PRN PRN PRN Reason: pain/fever Last Admin: 09/09/17 21:00 Dose: 500 mg Hydrocodone Bitart/Acetaminophen ([place] 5mg-325mg) 1 tablet PO BID PRN PRN PRN Reason: PAIN Last Admin: 09/09/17 09:45 Dose: 1 tablet Aripiprazole (Abilify) 10 mg PO DAILY [facility] Last Admin: 09/09/17 09:36 Dose: 10 mg Aspirin (Ecotrin) 81 mg PO DAILY [facility] Last Admin: 09/09/17 09:37 Dose: 81 mg Baclofen (Lioresal) 10 mg PO BID [facility] Last Admin: 09/09/17 20:58 Dose: 10 mg Dextrose (D50w Syringe) 0 gm IV X1 PRN; Protocol PRN Reason: Hypoglycemia Duloxetine HCl (Cymbalta) 60 mg PO DAILY [facility] Last Admin: 09/09/17 09:37 Dose: 60 mg Famotidine (Pepcid) 20 mg PO BID [facility] Last Admin: 09/09/17 20:59 Dose: 20 mg Furosemide (Lasix) 20 mg PO DAILY [facility] Last Admin: 09/09/17 09:37 Dose: 20 mg Gabapentin (Neurontin) 300 mg PO BID [facility] Last Admin: 09/09/17 20:59 Dose: 300 mg Glimepiride (Amaryl) 4 mg PO DAILY [facility] Last Admin: 09/09/17 09:37 Dose: 4 mg Glucagon () 1 mg IM .X1 PRN PRN Reason: Hypoglycemia Heparin Sodium (Porcine) (Heparin Na) 5,000 unit SC Q8 [facility] Last Admin: 09/10/17 06:43 Dose: 5,000 u Levofloxacin (Levaquin Iv) 500 mg in 100 mls @ 100 mls/hr IV Q24 [facility] Last Admin: 09/09/17 21:01 Dose: 100 mls/hr Sodium Chloride () 1,000 mls @ 125 mls/hr IV .Q8H [facility] Last Admin: 09/10/17 03:49 Dose: 125 mls/hr Sodium Chloride () 250 mls @ 15 mls/hr IV .[id number] PRN PRN Reason: SALINE FLUSH Insulin Glargine (Lantus (Bkc)) 25 units SC QHS [facility] Last Admin: 09/09/17 20:58 Dose: 25 units Insulin Human Lispro (Humalog Kwikpen (Bkc)) 0 unit SC TIDAC [facility] PRN Reason: Protocol Last Admin: 09/09/17 16:57 Dose: 2 units Insulin Human Lispro (Humalog Kwikpen (Bkc)) 2 unit SQ BREAKFAST [facility] Insulin Human Lispro (Humalog Kwikpen (Bkc)) 2 unit SQ DINNER [facility] Last Admin: 09/09/17 16:56 Dose: 2 units Insulin Human Lispro (Humalog Kwikpen (Bkc)) 2 unit SQ LUNCH [facility] Linagliptin (Tradjenta) 5 mg PO DAILY [facility] Last Admin: 09/09/17 09:36 Dose: 5 mg Loratadine (Claritin) 10 mg PO DAILY PRN PRN Magnesium Hydroxide (Milk Of Magnesia) 30 ml PO DAILY PRN PRN PRN Reason: Constipation Oxycodone HCl (Oxyir) 5 mg PO Q4H PRN PRN PRN Reason: Moderate Pain (pain scale 4-5) Last Admin: 09/10/17 03:49 Dose: 5 mg Potassium Chloride (K-Dur) 10 meq PO DAILY [facility] Last Admin: 09/09/17 09:37 Dose: 10 meq Primidone (Mysoline) 50 mg PO QHS [facility] Last Admin: 09/09/17 20:59 Dose: 50 mg Sodium Chloride () 5 - 30 ml IV UD PRN PRN Reason: SALINE FLUSH Spironolactone (Aldactone) 25 mg PO DAILY [facility] Last Admin: 09/09/17 09:37 Dose: 25 mg Trazodone HCl (Desyrel) 50 mg PO QHS PRN PRN Reason: SLEEP Medical Necessity - Tobacco Use Smoking Status: Former smoker Assessment/Plan All Active Problems Cellulitis (Acute) 57-year-old morbidly obese patient with past medical history of type II DM, hypertension, recurrent cellulitis comes in with another episode of cellulitis this time of the posterior thighs. 1. Severe sepsis secondary to recurrent cellulitis, and became tachycardic, had low-grade fevers, lactic acid was elevated at 2.6, started on IV fluids, continued on antibiotics, repeat lactic acid was 0.6, to Levaquin yesterday, will continue on same for now 2. Recurrent cellulitis, in a morbidly obese patient, likely exacerbation might be uncontrolled blood sugar, switched to Levaquin yesterday night, continue same, ID consulted 3. Type II DM, blood sugars are uncontrolled, pre-meal insulin added to basal insulin as well as ISS with Accu-Cheks 4. Hypertension, controlled, continue home medications 5. JEREMÍAS on CPAP 6. DVT prophylaxis -with heparin subcu 7. Disposition: Possible DC tomorrow if patient appears improved Code Visit Inpatient E&M: 61714 Subs Hosp L2
[2017-09-10 07:46] LABS: Bedside Glucose 139 mg/dL (70-110)
[2017-09-10] MEDS: Insulin Lispro 100 UNIT/ML INSULN.PEN SQ ×3 (07:48→17:05)
[2017-09-10] MEDS: levoFLOXacin IV 500 MG/100 ML BAG 100 MG IV (10:35)
[2017-09-10] MEDS: Spironolactone 25 MG Tablet PO (10:35)
[2017-09-10] MEDS: Gabapentin 300 MG Capsule PO ×2 (10:35→22:03)
[2017-09-10] MEDS: Glimepiride 4 MG Tablet PO (10:36)
[2017-09-10] MEDS: LINAGLIPTIN 5 MG TABLET PO (10:36)
[2017-09-10] MEDS: ARIPiprazole 5 MG Tablet 10 MG PO (10:36)
[2017-09-10] MEDS: Famotidine 20 MG Tablet PO ×2 (10:36→22:03)
[2017-09-10] MEDS: Aspirin E.C. 81 MG Tablet PO (10:36)
[2017-09-10] MEDS: Furosemide 20 MG Tablet PO (10:36)
[2017-09-10] MEDS: DULoxetine Hcl 60 MG Capsule PO (10:36)
[2017-09-10] MEDS: Baclofen 10 MG Tablet PO ×2 (10:37→22:03)
[2017-09-10 11:15] LABS: Bedside Glucose 180 mg/dL (70-110)
[2017-09-10] MEDS: Insulin Lispro 100 UNIT/ML INSULN.PEN SC (11:30)
--- NOTE | 2017-09-10 12:06 | CASEMGMT ---
See assessment. SW spoke w/pt in room in regard to home situation and discharge plan. Pt lives home alone, drives, has aide services 5 days/week 3 hours/day through [facility]. As of Sunday however, the services will change to [facility]. Pt does have PT through [facility]. Pt plans to return home w/the current services she has. Pt states her sisters are her POA's, has the papers at home. SW called [facility], they have pt for PT and RN, their number is [phone], fax is [phone]. SW called [facility], message left. SW called covering CM and let Leny know pt is here in the hospital. CM called [facility] and confirmed aide services are changing to [facility] at the end of the week. SW will continue to follow, will let [facility](or [facility] depending on when pt is discharged), [facility], and [facility] know when pt is discharged, will fax resume order w/discharge instructions to [facility]. ARINA Bell, ROLL REPAIRER
--- NOTE | 2017-09-10 16:25 | CON.PCM_ITS ---
Problem List (1) Cellulitis Status: Acute Qualifiers: Reason for Consult: cellulitis Consulted by: Dr. Honeycutt History of Present Illness: The patient is a 57 year old F with morbid obesity who presented with several days of R hip and B medial thigh redness/warmth/tenderness. No inciting events. no fever. Had similar episode a month ago requiring admission and dc home on augmentin. Reports glucose has not been well controlled. On levaquin after getting doses of clinda and cefazolin. Feeling better. Full ROS performed and neg except as noted above. - Medical History Past Medical History (Chronic Problems): Chronic Problems History of pneumonia (Chronic) JEREMÍAS (obstructive sleep apnea) (Chronic) Lumbosacral neuritis (Chronic) Esophageal reflux (Chronic) Morbid obesity (Chronic) Hypertension (Chronic) Allergies/Adverse Reactions: Allergies vancomycin Allergy (Verified 09/09/17 02:33) Rash amlodipine Adverse Reaction (Verified 09/09/17 02:33) Unknown atenolol Adverse Reaction (Verified 09/09/17 02:33) Unknown bupropion HCl [From Wellbutrin] Adverse Reaction (Verified 09/09/17 02:33) Unknown fluoxetine HCl [From Prozac] Adverse Reaction (Verified 09/09/17 02:33) Unknown meloxicam [From Mobic] Adverse Reaction (Verified 09/09/17 02:33) Unknown metoprolol Adverse Reaction (Verified 09/09/17 02:33) Unknown pregabalin [From Lyrica] Adverse Reaction (Verified 09/09/17 02:33) Unknown quetiapine fumarate [From Seroquel] Adverse Reaction (Verified 09/09/17 02:33) Unknown quinapril HCl [From Accupril] Adverse Reaction (Verified 09/09/17 02:33) Unknown risperidone Adverse Reaction (Verified 09/09/17 02:33) Unknown rofecoxib [From Vioxx] Adverse Reaction (Verified 09/09/17 02:33) Unknown sitagliptin phosphate [From Januvia] Adverse Reaction (Verified 09/09/17 02:33) Unknown venlafaxine HCl [From Effexor] Adverse Reaction (Verified 09/09/17 02:33) Unknown Home Medications: Ambulatory Orders Medication Instructions Recorded Aripiprazole 10 mg PO QHS 12/02/14 Aspirin [Adult Low Dose Aspirin EC] 81 mg PO DAILY 12/02/14 Duloxetine HCl 60 mg PO DAILY 12/02/14 Furosemide 20 mg PO DAILY 12/02/14 Linagliptin [Tradjenta] 5 mg PO DAILY 12/02/14 Potassium Chloride [K-Dur] 10 meq PO DAILY 12/02/14 Ranitidine [Zantac] 150 mg PO BID 12/02/14 Spironolactone [Aldactone] 25 mg PO DAILY 12/02/14 Baclofen 10 mg PO BID 08/01/17 Gabapentin [Neurontin] 300 mg PO BID 08/01/17 Primidone [Mysoline] 50 mg PO QHS 08/01/17 traZODone [Desyrel] 50 mg PO QHS PRN 08/01/17 Cetirizine HCl [Zyrtec] 10 mg PO DAILY PRN PRN 09/09/17 Glimepiride [Amaryl] 4 mg PO DAILY 09/09/17 Hydrocodone/Acetaminophen [[employer] 1 each PO BID PRN PRN 09/09/17 5-325 Tablet] Indomethacin [Indocin] 25 mg PO BID PRN 09/09/17 Insulin Detemir [Levemir] 20 unit SQ QHS 09/09/17 Nitroglycerin [Nitrostat] 0.4 mg SL PRN PRN 09/09/17 - Social History SMOKING STATUS:: Former smoker Vital Signs Temp Pulse Resp BP Pulse Ox 98.3 F 85 20 H 133/59 H 98 09/10/17 08:39 09/10/17 14:00 09/10/17 08:39 09/10/17 08:39 09/10/17 08:39 Oxygen Flow Rate (L/min) 2 Oxygen Delivery Method Room Air Weight: 178.7 kg Body Mass Index (BMI) 74.4 Laboratory Tests Past 24 Hrs 09/09/17 09/10/17 09/10/17 18:22 05:25 05:25 WBC 8.3 RBC 4.38 Hgb 12.2 Hct 37.9 MCV 86.5 MCH 27.9 MCHC 32.2 RDW 13.5 RDW Differential 43.0 Plt Count 157 MPV 10.7 Immature Gran % (Auto) 0.100 Neut % (Auto) 81.9 H Lymph % (Auto) 12.0 L [place] % (Auto) 5.6 Eos % (Auto) 0.4 Baso % (Auto) 0.0 Absolute Neuts (auto) 6.8 Absolute Lymphs (auto) 1.00 Total Counted Not Reportable Sodium 142 Potassium 3.7 Chloride 104 Carbon Dioxide 31.0 Anion Gap 7 BUN 14 Creatinine 0.54 L Estim Creat Clear Calc 86.74 Est GFR (MDRD) Af Amer 149 Est GFR (MDRD) Non-Af 123 BUN/Creatinine Ratio 25.9 H Glucose 164 H Lactic Acid 2.6 H Calcium 8.6 09/10/17 05:25 WBC RBC Hgb Hct MCV MCH MCHC RDW RDW Differential Plt Count MPV Immature Gran % (Auto) Neut % (Auto) Lymph % (Auto) [place] % (Auto) Eos % (Auto) Baso % (Auto) Absolute Neuts (auto) Absolute Lymphs (auto) Total Counted Sodium Potassium Chloride Carbon Dioxide Anion Gap BUN Creatinine Estim Creat Clear Calc Est GFR (MDRD) Af Amer Est GFR (MDRD) Non-Af BUN/Creatinine Ratio Glucose Lactic Acid 0.6 Calcium - Other Studies Radiology: [] reviewed Other Studies: [] Route of nutrition/ use of supplements: [] Nutritional Intake: [] IV Site: [] Bailey Catheter: [] - Physical Exam General: Alert, Oriented x3, Cooperative, No apparent distress HEENT: Atraumatic, PERRLA, EOMI Neck: Supple, No Nodes Lungs: Clear to auscultation, Normal air movement Cardiovascular: Regular rate, Regular Rhythm Abdomen: Bowel Sounds Present, Soft, Non Tender, Non-Distended, Obese Skin: - - erythema, warmth, mild induration tenderness over R hip and medial/ posterior thighs. IV Site: Peripheral, without redness Musculoskeletal: No Tenderness to Palpation of Joints or Extremities Neurological: Cranial nerves II-XII grossly intact - Assessment/Plan Antibiotics: [] Assessment/Plan: [] BLE cellulitis with uncontrolled DM and morbid obesity - recommend tighter glucose control, weight loss to prevent further episodes. Will treat with cefazolin for strep coverage. No purulence seen. Plan on home with keflex for 7-1 day course. Will follow, thank you.
[2017-09-10 16:30] LABS: Bedside Glucose 130 mg/dL (70-110)
[2017-09-10] MEDS: traZODone 50 MG Tablet PO (21:58)
[2017-09-10] MEDS: HYDROcodone Bitartrate/Apap 5/325 Tablet PO (21:58)
[2017-09-10] MEDS: Cefazolin 2 GM in 0.9% Normal Saline 100 ML IV (21:58)
[2017-09-10] MEDS: 0.9% NaCl Peripheral Flush Adult/Peds IV ×2 (21:59→23:52)
[2017-09-10] MEDS: Primidone 50 MG Tablet PO (22:04)
[2017-09-11 00:45] LABS: Bedside Glucose 209 mg/dL (70-110)
[2017-09-11 03:59] VITALS: PULSE 92
[2017-09-11 05:00] VITALS: BP 132/77; PULSE 76; RESP 18; TEMP 36.6; O2SAT 98
[2017-09-11] MEDS: Cefazolin 2 GM in 0.9% Normal Saline 100 ML IV (06:18)
[2017-09-11] MEDS: 0.9% NaCl Peripheral Flush Adult/Peds IV ×2 (06:18→07:08)
[2017-09-11] MEDS: Heparin Injection (Vial) 5,000 UNIT/ML VIAL 5000 UNIT SC (06:22)
[2017-09-11 07:16] LABS: Bedside Glucose 154 mg/dL (70-110)
[2017-09-11 07:20] VITALS: O2SAT 96
[2017-09-11] MEDS: oxyCODONE 5 MG Tablet PO (08:03)
[2017-09-11] MEDS: Insulin Lispro 100 UNIT/ML INSULN.PEN SQ ×2 (08:04→11:43)
[2017-09-11] MEDS: Insulin Lispro 100 UNIT/ML INSULN.PEN SC ×2 (08:04→11:42)
--- NOTE | 2017-09-11 09:54 | PCM.PN.ID ---
Subjective: Feeling much better. Less pain, no n/v/d, no fever. - Physical Exam General: Alert, Cooperative Lungs: Clear to auscultation, Normal air movement Cardiovascular: Regular rate, Regular Rhythm Abdomen: Soft, Non Tender, Non-Distended, Obese Skin: Rash Present, - Vital Signs Temp Pulse Resp BP Pulse Ox 98 F 76 18 132/77 H 96 09/11/17 05:00 09/11/17 05:00 09/11/17 05:00 09/11/17 05:00 09/11/17 07:20 Oxygen Flow Rate (L/min) 2 Oxygen Delivery Method Room Air Weight: 178.7 kg Body Mass Index (BMI) 74.4 Intake and Output for Last 24 Hours 09/09/17 09/10/17 09/11/17 23:59 23:59 23:59 Intake Total 960 / 960 4001 / 4001 690 / 690 Output Total 1500 / 1500 300 / 300 Balance -540 / -540 4001 / 4001 390 / 390 POC Glucose 09/11/17 09/10/17 09/10/17 07:05 21:46 16:12 POC Glucose 154 H 209 H 130 H 09/10/17 11:12 POC Glucose 180 H Medical Necessity - Tobacco Use Smoking Status: Former smoker Route of nutrition/ use of supplements: [] Nutritional Intake: [] IV Site: [] Bailey Catheter: [] - Assessment/Plan Antibiotics: [] Assessment/Plan: [] BLE cellulitis with uncontrolled DM and morbid obesity - recommend tighter glucose control, weight loss to prevent further episodes. Will treat with cefazolin for strep coverage. No purulence seen. Overall much improved. Plan on home with keflex for 7 day course. Will follow
[2017-09-11] MEDS: Gabapentin 300 MG Capsule PO (10:18)
[2017-09-11] MEDS: Glimepiride 4 MG Tablet PO (10:18)
[2017-09-11] MEDS: Aspirin E.C. 81 MG Tablet PO (10:19)
[2017-09-11] MEDS: Famotidine 20 MG Tablet PO (10:19)
[2017-09-11] MEDS: Furosemide 20 MG Tablet PO (10:19)
[2017-09-11] MEDS: LINAGLIPTIN 5 MG TABLET PO (10:19)
[2017-09-11] MEDS: DULoxetine Hcl 60 MG Capsule PO (10:19)
[2017-09-11] MEDS: Baclofen 10 MG Tablet PO (10:19)
[2017-09-11] MEDS: Spironolactone 25 MG Tablet PO (10:20)
[2017-09-11] MEDS: ARIPiprazole 5 MG Tablet 10 MG PO (10:20)
--- NOTE | 2017-09-11 10:37 | PN_ITS ---
Subjective: Patient feels well,, no acute events overnight. Denies fever chills or dizziness or palpitations Objective: Physical exam: General: Alert, Oriented x3, Cooperative, No apparent distress, - - Morbidly obese HEENT: Atraumatic, PERRLA, EOMI, Normocephalic Oral: Moist Mucosa Neck: Supple Lungs: Clear to auscultation, Normal air movement Cardiovascular: Regular rate, Regular Rhythm, Normal S1, Normal S2, No murmurs Abdomen: Bowel Sounds Present, Soft, Non Tender, Non-Distended, No Hepato- splenomegaly, Passing Flatus Extremities: No edema Skin: Erythema over the posterior thighs, right buttocks and hips. Musculoskeletal: No Tenderness to Palpation of Joints or Extremities Lymphatic: No Cervical, Supraclavicular, or Inguinal Adenopathy Neurological: Cranial nerves II-XII grossly intact Psych/Mental Status: Normal Affect, Appropriate Vitals/I&O's: Vital Signs Temp Pulse Resp BP Pulse Ox 98 F 76 18 132/77 H 96 09/11/17 05:00 09/11/17 05:00 09/11/17 05:00 09/11/17 05:00 09/11/17 07:20 Oxygen Flow Rate (L/min) 2 Oxygen Delivery Method Room Air Weight: 178.7 kg Body Mass Index (BMI) 74.4 Intake and Output for Last 24 Hours 09/09/17 09/10/17 09/11/17 23:59 23:59 23:59 Intake Total 960 / 960 4001 / 4001 690 / 690 Output Total 1500 / 1500 300 / 300 Balance -540 / -540 4001 / 4001 390 / 390 Laboratory Results 09/10/17 11:12: POC Glucose 180 H 09/10/17 16:12: POC Glucose 130 H 09/10/17 21:46: POC Glucose 209 H 09/11/17 07:05: POC Glucose 154 H Current Medications Acetaminophen (Tylenol) 500 mg PO Q4H PRN PRN PRN Reason: pain/fever Last Admin: 09/09/17 21:00 Dose: 500 mg Hydrocodone Bitart/Acetaminophen ([place] 5mg-325mg) 1 tablet PO BID PRN PRN PRN Reason: PAIN Last Admin: 09/10/17 21:58 Dose: 1 tablet Aripiprazole (Abilify) 10 mg PO DAILY [facility] Last Admin: 09/11/17 10:20 Dose: 10 mg Aspirin (Ecotrin) 81 mg PO DAILY [facility] Last Admin: 09/11/17 10:19 Dose: 81 mg Baclofen (Lioresal) 10 mg PO BID [facility] Last Admin: 09/11/17 10:19 Dose: 10 mg Dextrose (D50w Syringe) 0 gm IV X1 PRN; Protocol PRN Reason: Hypoglycemia Duloxetine HCl (Cymbalta) 60 mg PO DAILY [facility] Last Admin: 09/11/17 10:19 Dose: 60 mg Famotidine (Pepcid) 20 mg PO BID [facility] Last Admin: 09/11/17 10:19 Dose: 20 mg Furosemide (Lasix) 20 mg PO DAILY [facility] Last Admin: 09/11/17 10:19 Dose: 20 mg Gabapentin (Neurontin) 300 mg PO BID [facility] Last Admin: 09/11/17 10:18 Dose: 300 mg Glimepiride (Amaryl) 4 mg PO DAILY [facility] Last Admin: 09/11/17 10:18 Dose: 4 mg Glucagon () 1 mg IM .X1 PRN PRN Reason: Hypoglycemia Heparin Sodium (Porcine) (Heparin Na) 5,000 unit SC Q8 [facility] Last Admin: 09/11/17 06:22 Dose: 5,000 u Sodium Chloride () 250 mls @ 15 mls/hr IV .[id number] PRN PRN Reason: SALINE FLUSH Cefazolin Sodium 2 gm/ Sodium (Chloride) 110 mls @ 150 mls/hr IV Q8 [facility] Last Admin: 09/11/17 06:18 Dose: 150 mls/hr Insulin Glargine (Lantus (Bkc)) 25 units SC QHS [facility] Last Admin: 09/10/17 22:00 Dose: 25 units Insulin Human Lispro (Humalog Kwikpen (Bkc)) 0 unit SC TIDAC [facility] PRN Reason: Protocol Last Admin: 09/11/17 08:04 Dose: 1 units Insulin Human Lispro (Humalog Kwikpen (Bkc)) 2 unit SQ BREAKFAST [facility] Last Admin: 09/11/17 08:04 Dose: 2 units Insulin Human Lispro (Humalog Kwikpen (Bkc)) 2 unit SQ DINNER [facility] Last Admin: 09/10/17 17:05 Dose: 2 units Insulin Human Lispro (Humalog Kwikpen (Bkc)) 2 unit SQ LUNCH [facility] Last Admin: 09/10/17 11:30 Dose: 3 u Linagliptin (Tradjenta) 5 mg PO DAILY [facility] Last Admin: 09/11/17 10:19 Dose: 5 mg Loratadine (Claritin) 10 mg PO DAILY PRN PRN Magnesium Hydroxide (Milk Of Magnesia) 30 ml PO DAILY PRN PRN PRN Reason: Constipation Ondansetron HCl (Zofran) 4 mg IV Q6H PRN PRN PRN Reason: NAUSEA Oxycodone HCl (Oxyir) 5 mg PO Q4H PRN PRN PRN Reason: Moderate Pain (pain scale 4-5) Last Admin: 09/11/17 08:03 Dose: 5 mg Potassium Chloride (K-Dur) 10 meq PO DAILY [facility] Last Admin: 09/11/17 10:19 Dose: 10 meq Primidone (Mysoline) 50 mg PO QHS [facility] Last Admin: 09/10/17 22:04 Dose: 50 mg Sodium Chloride () 5 - 30 ml IV UD PRN PRN Reason: SALINE FLUSH Last Admin: 09/11/17 07:08 Dose: 10 ml Spironolactone (Aldactone) 25 mg PO DAILY [facility] Last Admin: 09/11/17 10:20 Dose: 25 mg Trazodone HCl (Desyrel) 50 mg PO QHS PRN PRN Reason: SLEEP Last Admin: 09/10/17 21:58 Dose: 50 mg Medical Necessity - Tobacco Use Smoking Status: Former smoker Assessment/Plan All Active Problems Cellulitis (Acute) 57-year-old morbidly obese patient with past medical history of type II DM, hypertension, recurrent cellulitis comes in with another episode of cellulitis this time of the posterior thighs. 1. Severe sepsis secondary to recurrent cellulitis, improved, will discharged on Keflex for 10 days 2. Recurrent cellulitis, in a morbidly obese patient, likely exacerbation might be uncontrolled blood sugar, appreciate ID consult, discharged on Keflex for 10 more days. 3. Type II DM, changes made to admit medications, continue to monitor blood sugars 4. Hypertension, controlled, continue home medications 5. JEREMÍAS on CPAP 6. DVT prophylaxis -with heparin subcu Code Visit Inpatient E&M: 94360 Subs Hosp L2
--- NOTE | 2017-09-11 10:37 | PCM.DC ---
- Discharge Diagnoses Reason(s) for Visit for Discharge Instructions: Fever, chills, redness of posterior thigh and buttocks You will use the following diet at home:: Calorie/Carbohydrate Controlled (specify 1200, 1400, etc), Cardiac Your food should be the consistency of: Regular Your liquids should be the consistency of: Regular/Thin Discharge Activity: Return to Normal Activity Call your doctor if you observe: Fever of 101 or Higher Additional Instructions: Complete all your antibiotics. A probiotic has been added to your medications. Take it whilst on antibiotics. Follow-up with your primary care doctor within 1 week. You need to maintain skin hygiene with daily baths and drying of your skin completely. Changes have been made to your insulin. Follow-up with your primary doctor for changes. Your primary doctor should consider referring to bariatric/weight loss management programs to assist you with weight loss. Allergies/Adverse Reactions: Allergies vancomycin Allergy (Verified 09/09/17 02:33) Rash amlodipine Adverse Reaction (Verified 09/09/17 02:33) Unknown atenolol Adverse Reaction (Verified 09/09/17 02:33) Unknown bupropion HCl [From Wellbutrin] Adverse Reaction (Verified 09/09/17 02:33) Unknown fluoxetine HCl [From Prozac] Adverse Reaction (Verified 09/09/17 02:33) Unknown meloxicam [From Mobic] Adverse Reaction (Verified 09/09/17 02:33) Unknown metoprolol Adverse Reaction (Verified 09/09/17 02:33) Unknown pregabalin [From Lyrica] Adverse Reaction (Verified 09/09/17 02:33) Unknown quetiapine fumarate [From Seroquel] Adverse Reaction (Verified 09/09/17 02:33) Unknown quinapril HCl [From Accupril] Adverse Reaction (Verified 09/09/17 02:33) Unknown risperidone Adverse Reaction (Verified 09/09/17 02:33) Unknown rofecoxib [From Vioxx] Adverse Reaction (Verified 09/09/17 02:33) Unknown sitagliptin phosphate [From Januvia] Adverse Reaction (Verified 09/09/17 02:33) Unknown venlafaxine HCl [From Effexor] Adverse Reaction (Verified 09/09/17 02:33) Unknown Medications to take at Discharge Aripiprazole 10 mg PO QHS 12/02/14 Aspirin [Adult Low Dose Aspirin EC] 81 mg PO DAILY 12/02/14 Duloxetine HCl 60 mg PO DAILY 12/02/14 Furosemide 20 mg PO DAILY 12/02/14 Linagliptin [Tradjenta] 5 mg PO DAILY 12/02/14 Potassium Chloride [K-Dur] 10 meq PO DAILY 12/02/14 Ranitidine [Zantac] 150 mg PO BID 12/02/14 Spironolactone [Aldactone] 25 mg PO DAILY 12/02/14 Baclofen 10 mg PO BID 08/01/17 Gabapentin [Neurontin] 300 mg PO BID 08/01/17 Primidone [Mysoline] 50 mg PO QHS 08/01/17 traZODone [Desyrel] 50 mg PO QHS PRN 08/01/17 Cetirizine HCl [Zyrtec] 10 mg PO DAILY PRN PRN 09/09/17 Glimepiride [Amaryl] 4 mg PO DAILY 09/09/17 Hydrocodone/Acetaminophen [[place] 5-325 Tablet] 1 each PO BID PRN PRN 09/09/17 Indomethacin [Indocin] 25 mg PO BID PRN 09/09/17 Nitroglycerin [Nitrostat] 0.4 mg SL PRN PRN 09/09/17 Cephalexin [Keflex] 500 mg PO 4X/DAY #40 cap 09/11/17 Insulin Detemir [Levemir] 30 unit SQ QHS #1 09/11/17 L. Acidophilus/L.bulgaricus [Lactobacillus Tablet] 1 ea PO BID #60 tab 09/11/17 The following prescriptions were given: L. Acidophilus/L.bulgaricus [Lactobacillus Tablet] 1 ea PO BID #60 tab Cephalexin [Keflex] 500 mg PO 4X/DAY #40 cap Primary Care Physician: Vincent Negro MD [Primary Care Provider] - Please follow up with your Primary Care Physician in: within 1 week Test Results: Test results from this visit will be discussed in further detail at your follow-up appointment, if applicable. Proposed Discharge Date: 09/11/17
--- NOTE | 2017-09-11 10:43 | DCINST_ITS ---
- Discharge Diagnoses Reason(s) for Visit for Discharge Instructions: Fever, chills, redness of posterior thigh and buttocks You will use the following diet at home:: Calorie/Carbohydrate Controlled ( specify 1200, 1400, etc), Cardiac Your food should be the consistency of: Regular Your liquids should be the consistency of: Regular/Thin Discharge Activity: Return to Normal Activity Call your doctor if you observe: Fever of 101 or Higher Additional Instructions: Complete all your antibiotics. A probiotic has been added to your medications. Take it whilst on antibiotics. Follow-up with your primary care doctor within 1 week. You need to maintain skin hygiene with daily baths and drying of your skin completely. Changes have been made to your insulin. Follow-up with your primary doctor for changes. Your primary doctor should consider referring to bariatric/weight loss management programs to assist you with weight loss. Allergies/Adverse Reactions: Allergies vancomycin Allergy (Verified 09/09/17 02:33) Rash amlodipine Adverse Reaction (Verified 09/09/17 02:33) Unknown atenolol Adverse Reaction (Verified 09/09/17 02:33) Unknown bupropion HCl [From Wellbutrin] Adverse Reaction (Verified 09/09/17 02:33) Unknown fluoxetine HCl [From Prozac] Adverse Reaction (Verified 09/09/17 02:33) Unknown meloxicam [From Mobic] Adverse Reaction (Verified 09/09/17 02:33) Unknown metoprolol Adverse Reaction (Verified 09/09/17 02:33) Unknown pregabalin [From Lyrica] Adverse Reaction (Verified 09/09/17 02:33) Unknown quetiapine fumarate [From Seroquel] Adverse Reaction (Verified 09/09/17 02:33) Unknown quinapril HCl [From Accupril] Adverse Reaction (Verified 09/09/17 02:33) Unknown risperidone Adverse Reaction (Verified 09/09/17 02:33) Unknown rofecoxib [From Vioxx] Adverse Reaction (Verified 09/09/17 02:33) Unknown sitagliptin phosphate [From Januvia] Adverse Reaction (Verified 09/09/17 02:33) Unknown venlafaxine HCl [From Effexor] Adverse Reaction (Verified 09/09/17 02:33) Unknown Medications to take at Discharge Aripiprazole 10 mg PO QHS 12/02/14 Aspirin [Adult Low Dose Aspirin EC] 81 mg PO DAILY 12/02/14 Duloxetine HCl 60 mg PO DAILY 12/02/14 Furosemide 20 mg PO DAILY 12/02/14 Linagliptin [Tradjenta] 5 mg PO DAILY 12/02/14 Potassium Chloride [K-Dur] 10 meq PO DAILY 12/02/14 Ranitidine [Zantac] 150 mg PO BID 12/02/14 Spironolactone [Aldactone] 25 mg PO DAILY 12/02/14 Baclofen 10 mg PO BID 08/01/17 Gabapentin [Neurontin] 300 mg PO BID 08/01/17 Primidone [Mysoline] 50 mg PO QHS 08/01/17 traZODone [Desyrel] 50 mg PO QHS PRN 08/01/17 Cetirizine HCl [Zyrtec] 10 mg PO DAILY PRN PRN 09/09/17 Glimepiride [Amaryl] 4 mg PO DAILY 09/09/17 Hydrocodone/Acetaminophen [[place] 5-325 Tablet] 1 each PO BID PRN PRN 09/09/17 Indomethacin [Indocin] 25 mg PO BID PRN 09/09/17 Nitroglycerin [Nitrostat] 0.4 mg SL PRN PRN 09/09/17 Cephalexin [Keflex] 500 mg PO 4X/DAY #40 cap 09/11/17 Insulin Detemir [Levemir] 30 unit SQ QHS #1 09/11/17 L. Acidophilus/L.bulgaricus [Lactobacillus Tablet] 1 ea PO BID #60 tab 09/11/17 The following prescriptions were given: L. Acidophilus/L.bulgaricus [Lactobacillus Tablet] 1 ea PO BID #60 tab Cephalexin [Keflex] 500 mg PO 4X/DAY #40 cap Primary Care Physician: Vincent Negro MD [Primary Care Provider] - Please follow up with your Primary Care Physician in: within 1 week Test Results: Test results from this visit will be discussed in further detail at your follow- up appointment, if applicable. Proposed Discharge Date: 09/11/17
--- NOTE | 2017-09-11 10:43 | DS.PCM_ITS ---
Discharge Date and Diagnosis Date of Admission: 09/09/17 Date of Discharge: 09/11/17 - Primary Discharge Diagnosis Severe sepsis Recurrent cellulitis Hyperglycemia in a type II DM - Secondary Discharge Diagnosis Chronic Problems History of pneumonia (Chronic) JEREMÍAS (obstructive sleep apnea) (Chronic) Lumbosacral neuritis (Chronic) Esophageal reflux (Chronic) Morbid obesity (Chronic) Hypertension (Chronic) Recurrent cellulitis Hospital Course and Treatment None Operations: None Procedures: None Summary of Care Provided: 57-year-old super morbidly obese patient, BMI 74.4, with past medical history of type II DM, hypertension, recurrent cellulitis comes in with another episode of cellulitis, this time of the posterior thighs and buttocks. 1. Severe sepsis secondary to recurrent cellulitis. Patient was admitted with sepsis secondary to recurrent cellulitis, without lactic acidosis. She developed worsening tachycardia as well as further elevation in lactic acid to 2.6 on the floors. Continued on IV fluids and IV antibiotics with improvement. Infectious disease was consulted. She was discharged on Keflex for 10 days 2. Recurrent cellulitis, in a morbidly obese patient, likely exacerbation might be uncontrolled blood sugar, on IV antibiotics. Discussed extensively with patient and discussed antiseptic bath, frequent mobilization, daily baths with drying of skin to prevent recurrent cellulitis. 3. Type II DM, changes made to admit medications, patient has an appointment with her primary make changes in her medications upcoming in a week or 2. 4. Super morbidly obese, candidate for bariatric surgery, advised patient to consider and discuss with her primary care doctor. 5. Hypertension, controlled. 5. JEREMÍAS on CPAP Discharge Diet: Low fat/ Low Cholesterol, 2000 mg Sodium Diet, Carb Control Diet Discharge Activity: Return to Normal Activity Call your doctor if you observe: Fever of 101 or Higher Home Medications: Medications to take at Discharge Aripiprazole 10 mg PO QHS 12/02/14 Aspirin [Adult Low Dose Aspirin EC] 81 mg PO DAILY 12/02/14 Duloxetine HCl 60 mg PO DAILY 12/02/14 Furosemide 20 mg PO DAILY 12/02/14 Linagliptin [Tradjenta] 5 mg PO DAILY 12/02/14 Potassium Chloride [K-Dur] 10 meq PO DAILY 12/02/14 Ranitidine [Zantac] 150 mg PO BID 12/02/14 Spironolactone [Aldactone] 25 mg PO DAILY 12/02/14 Baclofen 10 mg PO BID 08/01/17 Gabapentin [Neurontin] 300 mg PO BID 08/01/17 Primidone [Mysoline] 50 mg PO QHS 08/01/17 traZODone [Desyrel] 50 mg PO QHS PRN 08/01/17 Cetirizine HCl [Zyrtec] 10 mg PO DAILY PRN PRN 09/09/17 Glimepiride [Amaryl] 4 mg PO DAILY 09/09/17 Hydrocodone/Acetaminophen [[place] 5-325 Tablet] 1 each PO BID PRN PRN 09/09/17 Indomethacin [Indocin] 25 mg PO BID PRN 09/09/17 Nitroglycerin [Nitrostat] 0.4 mg SL PRN PRN 09/09/17 Cephalexin [Keflex] 500 mg PO 4X/DAY #40 cap 09/11/17 Insulin Detemir [Levemir] 30 unit SQ QHS #1 09/11/17 L. Acidophilus/L.bulgaricus [Lactobacillus Tablet] 1 ea PO BID #60 tab 09/11/17 Following Prescrptions Were Given to Patient: L. Acidophilus/L.bulgaricus [Lactobacillus Tablet] 1 ea PO BID #60 tab Cephalexin [Keflex] 500 mg PO 4X/DAY #40 cap Primary Care Physician: Vincent Negro MD [Primary Care Provider] - Please follow up with your Primary Care Physician in: within 1 week Disposition: Home with Home Health Minutes spent on discharge:: 40 Patient Condition:: Stable Medical Necessity - Tobacco Use Smoking Status: Former smoker Tobacco Use: Non-smoker Meaningful Use Info Meaningful Use Diagnoses (Choose all that apply): None applicable Code Visit Inpatient E&M: 11722 Disch Hosp
[2017-09-11 11:50] LABS: Bedside Glucose 230 mg/dL (70-110)
--- NOTE | 2017-09-11 12:30 | CASEMGMT ---
Social Work Pt ready for d/c on this date. Phone call placed to [facility] and notified of d/c and resumption of RN/PT. Orders faxed. Phone call to pt JOSE Lyons and message left informing of d/c. Phone call to [facility] and message left notifying of d/c and to restart services. Met with pt in room and informed of above. Pt agreeable to d/c and states she has a ride home. No further SW needs. TOBIAS Khan
[2017-09-11 13:06] VITALS: BP 115/73; PULSE 80; RESP 18; TEMP 37; O2SAT 98
--- NOTE | 2017-09-13 16:48 | CASEMGMT ---
LOLY GARCIA DISCHARGE FOLLOW-UP PHONE CALL: SAHRA Moran SRATA 3 DISCHARGE DATE: 09/11/17 LOLY GARCIA spoke with pt re: how she is feeling since she left the hospital. Pt stated, I am feeling so much better. She reports she picked up her Keflex and Lactobacillus on the day she was discharged and started taking them that day. Pt able to correctly state why she is taking them and how frequent she is to be taking them. Pt states she has an up-coming appt with Dr Negro on Sunday. Pt reports her stay @ [facility] was great and stated, I had absolutely the greatest experience. I've had to be there twice recently and both times have been great. Reports no needs at this time and states there is nothing she would recommend for [facility]. LOLY GARCIA thanked pt for choosing [facility]. Allen GARCÍA RN, CM
== END 2017-09-11 13:20 | disposition home or self-care (01) | DRG 872 ==
LOC: ED 03:16 → MS2 04:44 → ED 14:44 → MS2 18:31
PROVIDERS: Admitting Provider Internal Medicine; Emergency Provider Emergency Medicine; Family Provider Family Medicine; PCP Family Medicine; Visit Provider Internal Medicine
DX: A41.9 Sepsis, unspecified organism (principal); L03.116 Cellulitis of left lower limb; L03.115 Cellulitis of right lower limb; L03.317 Cellulitis of buttock; Z68.45 Body mass index [BMI] 70 or greater, adult; R65.20 Severe sepsis without septic shock; E11.65 Type 2 diabetes mellitus with hyperglycemia; I10 Essential (primary) hypertension; M19.90 Unspecified osteoarthritis, unspecified site; K21.9 Gastro-esophageal reflux disease without esophagitis; G47.33 Obstructive sleep apnea (adult) (pediatric); M54.17 Radiculopathy, lumbosacral region; E66.01 Morbid (severe) obesity due to excess calories; Z79.4 Long term (current) use of insulin; Z79.84 Long term (current) use of oral hypoglycemic drugs; Z79.82 Long term (current) use of aspirin; Z87.01 Personal history of pneumonia (recurrent); Z87.891 Personal history of nicotine dependence; Z79.899 Other long term (current) drug therapy
CPT/HCPCS: 36415; 80048; 80053; 80307; 81001; 82962; 83605; 85025; 85610; 85730; 87040; 87077; 87086; 87088; 87186; 93005; 97162; 97166; 99284; J7030; J7040; A4216

== ENCOUNTER 2017-10-21 04:01 | Inpatient (IN) | payer MEDICARE, SELFPAY ==
[2017-10-21] VITALS (14 sets, daily range): BP systolic 90–147; BP diastolic 45–60; PULSE 75–110; RESP 10–26; TEMP 36.3–38.9; O2SAT 92–98; BMI 74.9
--- NOTE | 2017-10-21 04:33 | ED.DCSUM_ITS ---
- ER Visit Summary Date of Service: 10/21/17 Chief Complaint: Right thigh and buttock cellulitis History of Present Illness: The patient is a 57 F with history of recurrent cellulitis and diabetes who presents for 1 day of cellulitis to the right upper thigh and buttocks and fever. Patient states she began having symptoms yesterday morning. Prior to that she had complete resolution of her last round of cellulitis, which it occurred 1 month prior. She completed a 10 day course of oral antibiotics at home after discharge. She is felt well until yesterday morning when she developed fever and returned rash. She has associated nausea, headache, generalized weakness. Denies any other complaints. Physical Examination: Vital signs: Febrile at 102.1, hemodynamically stable, no hypoxia on room air General: well nourished, well developed, morbidly obese, in no distress Skin: warm, moist, flushed, large area of erythema over the right proximal lateral thigh extending to the right buttock HEENT: normocephalic and atraumatic; PERRL, EOMI, moist mucous membranes Cardiovascular: Tachycardic rate and rhythm without murmurs, no peripheral edema , 2+ pulses all distal extremities Respiratory: No increased work of breathing, lungs are clear to auscultation bilaterally, no rales, rhonchi or wheezing Abdominal: Abdomen is soft, nontender with normoactive bowel sounds, no guarding or rebound, no masses MSK: Moves all extremities, no deformities, normal strength Neuro: Awake and alert, oriented ?4. No facial droop, sensation and motor function intact and symmetric Test Results: Abnormal Lab Results 10/21/17 10/21/17 10/21/17 04:35 04:35 04:35 WBC 12.2 H RBC 4.23 Hgb 11.8 L Hct 36.3 L MCV 85.8 MCH 27.9 MCHC 32.5 RDW 13.5 RDW Differential 41.4 Plt Count 177 MPV 11.0 Immature Gran % (Auto) 0.300 Neut % (Auto) 90.7 H Lymph % (Auto) 4.0 L Moody % (Auto) 4.7 Eos % (Auto) 0.2 Baso % (Auto) 0.1 Absolute Neuts (auto) 11.1 H Absolute Lymphs (auto) 0.49 L Total Counted Not Reportable PT 14.1 INR 1.1 APTT 31.9 Sodium 139 Potassium 3.9 Chloride 103 Carbon Dioxide 27.0 Anion Gap 9 BUN 16 Creatinine 0.63 Estim Creat Clear Calc 74.35 Est GFR (MDRD) Af Amer 126 Est GFR (MDRD) Non-Af 104 BUN/Creatinine Ratio 25.5 H Glucose 202 H Hemoglobin A1c Lactic Acid Calcium 8.4 L Magnesium Total Bilirubin 0.70 AST 8 L ALT 16 Alkaline Phosphatase 103 Total Protein 6.2 L Albumin 3.1 L Globulin 3.1 Albumin/Globulin Ratio 1.0 Urine Color Urine Clarity Urine pH Ur Specific [place] Urine Protein Urine Glucose (UA) Urine Ketones Urine Occult Blood Urine Nitrite Urine Bilirubin Urine Urobilinogen Ur Leukocyte Esterase Urine RBC Urine WBC Ur Squamous Epith Cells Urine Bacteria Urine Mucus POC Glucose 10/21/17 10/21/17 10/21/17 04:35 05:20 07:32 WBC RBC Hgb Hct MCV MCH MCHC RDW RDW Differential Plt Count MPV Immature Gran % (Auto) Neut % (Auto) Lymph % (Auto) Moody % (Auto) Eos % (Auto) Baso % (Auto) Absolute Neuts (auto) Absolute Lymphs (auto) Total Counted PT INR APTT Sodium Potassium Chloride Carbon Dioxide Anion Gap BUN Creatinine Estim Creat Clear Calc Est GFR (MDRD) Af Amer Est GFR (MDRD) Non-Af BUN/Creatinine Ratio Glucose Hemoglobin A1c Lactic Acid 1.0 Calcium Magnesium Total Bilirubin AST ALT Alkaline Phosphatase Total Protein Albumin Globulin Albumin/Globulin Ratio Urine Color Yellow Urine Clarity Clear Urine pH 5.0 Ur Specific [place] 1.015 Urine Protein 15 H Urine Glucose (UA) Normal Urine Ketones 5 H Urine Occult Blood Negative Urine Nitrite Negative Urine Bilirubin 1 H Urine Urobilinogen 1 H Ur Leukocyte Esterase 25 H Urine RBC 0 SEEN Urine WBC 0-5 SEEN Ur Squamous Epith Cells 0 SEEN Urine Bacteria RARE Urine Mucus 1+ POC Glucose 176 H 10/21/17 10/21/17 10/21/17 07:55 07:55 07:55 WBC RBC Hgb Hct MCV MCH MCHC RDW RDW Differential Plt Count MPV Immature Gran % (Auto) Neut % (Auto) Lymph % (Auto) Moody % (Auto) Eos % (Auto) Baso % (Auto) Absolute Neuts (auto) Absolute Lymphs (auto) Total Counted PT INR APTT Sodium Potassium Chloride Carbon Dioxide Anion Gap BUN Creatinine Estim Creat Clear Calc Est GFR (MDRD) Af Amer Est GFR (MDRD) Non-Af BUN/Creatinine Ratio Glucose Hemoglobin A1c 7.2 H Lactic Acid 0.7 Calcium Magnesium 2.1 Total Bilirubin AST ALT Alkaline Phosphatase Total Protein Albumin Globulin Albumin/Globulin Ratio Urine Color Urine Clarity Urine pH Ur Specific [place] Urine Protein Urine Glucose (UA) Urine Ketones Urine Occult Blood Urine Nitrite Urine Bilirubin Urine Urobilinogen Ur Leukocyte Esterase Urine RBC Urine WBC Ur Squamous Epith Cells Urine Bacteria Urine Mucus POC Glucose Clinical Impression(s) from Imaging Studies Chest X-Ray 10/21/17 04:33 IMPRESSION: Borderline cardiomegaly and mild pulmonary congestion. Electronically Signed: Renee Navarrete MD at 5:28 EDT , Service support , Emergency Department Course and Treatment: Patient presents for recurrent cellulitis and is febrile at presentation. Sepsis workup was performed. Patient received Tylenol for her headache and Zofran for nausea. IV fluids were given. Lactate within normal limits. Mild leukocytosis of 12.2. Glucose elevated at 202. EKG showed sinus without ischemic changes. Chest x-ray showed no infiltrate. Patient was started on Zosyn for cellulitis coverage, as she had been on oral clindamycin at home. She was discussed with Dr. Barron for admission for further management of sepsis and right upper thigh/buttock cellulitis, recurrent cellulitis. Treatment Plan: [] Disposition: [] Impression: Sepsis, right thigh and buttock cellulitis This note was generated with [employer]raise dictation software. It may contain incorrect words, spelling, and punctuation that were not noted in review of the chart prior to signing ED Disposition - Plan for ED Patient: Disposition: Acute Care Hospital [facility] Chief Complaint: Fever
[2017-10-21] MEDS: 0.9% Normal Saline 1,000 ML 250 ML IV (04:40)
[2017-10-21] MEDS: Ondansetron ODT 4 MG Tablet PO (04:51)
[2017-10-21] MEDS: Acetaminophen 500 MG Tablet 1000 MG PO (04:51)
[2017-10-21 05:00] LABS: Absolute Lymphocyte Count 0.49 X10^3/ul (0.83-4.51); Absolute Neutrophil Count 11.1 X10^3/uL (2.0-7.7); Basophil# 0.01 X10^3/uL; Basophil% 0.1 % (0-1); Eosinophil# 0.03 X10^3/uL; Eosinophils% 0.2 % (0-5); Hematocrit 36.3 % (37-47); Hemoglobin 11.8 g/dl (12.0-15.0); Lymphocyte # 0.49 X10^3/ul (4.0); Mean Corp Hgb Conc 32.5 g/gl (32-36); Mean Corpuscular Hgb 27.9 pg (27.0-32.0); Mean Corpuscular Volume 85.8 fL (81-99); Monocyte# 0.58 X10^3/uL; Monocyte% 4.7 % (0-10); Neutrophil # 11.08 X10^3/uL (2.7-7.7); Neutrophil % 90.7 % (47-70); Platelet Count 177 K/mm3 (150-450); RBC Distribution Width CV 13.5 % (11.6-14.6); RBC Distribution Width SD 41.4 fl (35.1-43.9); Red Blood Count 4.23 M/mm3 (4.2-5.4); White Blood Count 12.2 K/mm3 (4.4-11.0)
[2017-10-21 05:02] LABS: Differential Indicated SCAN CRITERIA MET; POSITIVE COUNT NO; POSITIVE DIFFERENTIAL YES; POSITIVE MORPHOLOGY NO
[2017-10-21 05:08] LABS: International Normalized Ratio 1.1; Prothrombin Time (Protime)PT. 14.1 SECONDS (11.7-14.9)
[2017-10-21 05:09] LABS: Partial Thromboplast Time 31.9 Seconds (24.1-36.2)
[2017-10-21 05:25] LABS: AST(SGOT) 8 U/L (15-37); Alanine Aminotransfer ALT/SGPT 16 U/L (13-56); Albumin, Serum 3.1 g/dL (3.2-5.0); Alkaline Phosphatase 103 U/L (45-117); Anion Gap 9 (5-15); BUN 16 mg/dL (7-18); BUN/Creat Ratio 25.5 RATIO (10-20); Calcium,Total 8.4 mg/dL (8.5-10.1); Chloride 103 mmol/L (98-107); Creatinine, Serum 0.63 mg/dL (0.55-1.02); EST Glomerular Filtration Rate 104 mL/min (>60); Est Glom Filt Rate - Afr Amer 126 mL/min (>60); Estimated Creatinine Clearance 74.35 ml/min; Globulin 3.1 g/dL (2.2-4.2); Glucose 202 mg/dL (74-106); Potassium 3.9 mmol/L (3.5-5.1); Protein, Total 6.2 g/dL (6.4-8.2); Sodium Level 139 mmol/L (136-145)
[2017-10-21 05:29] LABS: Red Blood Cells-Urine 0 SEEN /hpf (0-5); Squamous Epithelial Cells - UA 0 SEEN /hpf (5-10)
--- NOTE | 2017-10-21 05:43 | PCM.HP.STD ---
Problem List (1) Sepsis Status: Acute (2) Anxiety and depression Status: Chronic (3) Heart failure Status: Chronic Qualifiers: Heart failure type: unspecified Heart failure chronicity: chronic Qualified Code(s): I50.9 - Heart failure, unspecified (4) Diabetes mellitus, type II Status: Acute Qualifiers: Diabetes mellitus mcfp insulin use: with mcfp use Diabetes mellitus complication status: with unspecified complications Qualified Code(s): E11.8 - Type 2 diabetes mellitus with unspecified complications; Z79.4 - half-way (current) use of insulin (5) Chronic back pain Status: Chronic Qualifiers: Back pain location: back pain in unspecified location Back pain laterality: unspecified Qualified Code(s): M54.9 - Dorsalgia, unspecified; G89.29 - Other chronic pain (6) JEREMÍAS (obstructive sleep apnea) Status: Chronic (7) Esophageal reflux Status: Chronic Qualifiers: Esophagitis presence: esophagitis presence not specified Qualified Code(s): K21.9 - Gastro-esophageal reflux disease without esophagitis (8) Morbid obesity Status: Chronic (9) Hypertension Status: Chronic Qualifiers: Hypertension type: essential hypertension Qualified Code(s): I10 - Essential (primary) hypertension (10) Cellulitis Status: Acute Qualifiers: Laterality: unspecified laterality History of Present Illness Date of Admission: 10/21/17 Chief Complaint: Skin redness, painful, fever onset The patient is a 57 y/o F w/ PMHx: Chronic Back and BL LE Pain following w/ Dr. Pacheco, Diabetes mellitus type II, CHF Unclear Type, Anxiety and Depression, Morbid Obesity, JEREMÍAS, GERD, HTN, Hx Frequent Cellulitis who presents to the [facility] ED on 10/21/17 with history of 24 hours R upper thigh and buttock cellulitis w/ onset fever seen per her PCP in the morning on day prior to presentation and initiated on clindamycin without improvement prompting ED presentation. This is similar location to recent admission which was treated at that time w/ ancef and upon discharge kelflex per ID recommendation. In the ED work-up included T102.1, heart rate 110, BP 147/50, respiratory rate 24, 94% room air, CBC with WBC 12.2, hemoglobin 11.8, platelet 177 with left shift, pending coags, CMP with glucose 202, lactic acid 1.0, urinalysis pending, blood culture ?2 pending per ED, urine culture pending per ED, chest x-ray with chronic changes and mild congestion. In the ED patient administered Zosyn, Zofran, Tylenol, normal saline. Past Medical History Past Medical History (Chronic Problems): Chronic Problems Anxiety and depression (Chronic) Heart failure (Chronic) Chronic back pain (Chronic) History of pneumonia (Chronic) JEREMÍAS (obstructive sleep apnea) (Chronic) Lumbosacral neuritis (Chronic) Esophageal reflux (Chronic) Morbid obesity (Chronic) Hypertension (Chronic) Allergies vancomycin Allergy (Verified 10/21/17 04:07) Rash amlodipine Adverse Reaction (Verified 10/21/17 04:07) Unknown atenolol Adverse Reaction (Verified 10/21/17 04:07) Unknown bupropion HCl [From Wellbutrin] Adverse Reaction (Verified 10/21/17 04:07) Unknown fluoxetine HCl [From Prozac] Adverse Reaction (Verified 10/21/17 04:07) Unknown meloxicam [From Mobic] Adverse Reaction (Verified 10/21/17 04:07) Unknown metoprolol Adverse Reaction (Verified 10/21/17 04:07) Unknown pregabalin [From Lyrica] Adverse Reaction (Verified 10/21/17 04:07) Unknown quetiapine fumarate [From Seroquel] Adverse Reaction (Verified 10/21/17 04:07) Unknown quinapril HCl [From Accupril] Adverse Reaction (Verified 10/21/17 04:07) Unknown risperidone Adverse Reaction (Verified 10/21/17 04:07) Unknown rofecoxib [From Vioxx] Adverse Reaction (Verified 10/21/17 04:07) Unknown sitagliptin phosphate [From Januvia] Adverse Reaction (Verified 10/21/17 04:07) Unknown venlafaxine HCl [From Effexor] Adverse Reaction (Verified 10/21/17 04:07) Unknown Home Medications: Ambulatory Orders Medication Instructions Recorded Aripiprazole 10 mg PO QHS 12/02/14 Aspirin [Adult Low Dose Aspirin EC] 81 mg PO DAILY 12/02/14 Duloxetine HCl 60 mg PO DAILY 12/02/14 Furosemide 20 mg PO DAILY 12/02/14 Linagliptin [Tradjenta] 5 mg PO DAILY 12/02/14 Potassium Chloride [K-Dur] 10 meq PO DAILY 12/02/14 Ranitidine [Zantac] 150 mg PO DAILY 12/02/14 Spironolactone [Aldactone] 25 mg PO DAILY 12/02/14 Baclofen 10 mg PO BID 08/01/17 Gabapentin [Neurontin] 300 mg PO BID 08/01/17 Primidone [Mysoline] 50 mg PO QHS 08/01/17 traZODone [Desyrel] 50 mg PO QHS 08/01/17 Cetirizine HCl [Zyrtec] 10 mg PO DAILY PRN PRN 09/09/17 Glimepiride [Amaryl] 4 mg PO DAILY 09/09/17 Hydrocodone/Acetaminophen [Cecil 1 each PO BID PRN PRN 09/09/17 5-325 Tablet] Indomethacin [Indocin] 25 mg PO BID PRN 09/09/17 Nitroglycerin [Nitrostat] 0.4 mg SL PRN PRN 09/09/17 Clindamycin [Cleocin] 150 mg PO 4X/DAY 10/21/17 Insulin Glargine,Hum.rec.anlog 30 unit SQ QHS 10/21/17 [Basaglar Kwikpen U-100] Surgical History: - - Cholecystectomy, hernia repair, cataract surgery, D&C. Psychiatric History: Anxiety, Depression EXECUTIVE ADMIN History: No pertinent EXECUTIVE ADMIN history Lives: Alone Smoking Status: Former smoker - Patient quit her tobacco usage 1997 with prior to this 1 pack per day since youth. Tobacco Use: Non-smoker Alcohol: None Drugs: None - *Family History Sibling History Items: - - Patient notes sibling with heart disease, coronary disease, diabetes, stroke. Maternal History Items: - - Patient notes a maternal family history of heart disease, diabetes, stroke. Paternal History Items: - - Patient notes a paternal family history of hypertension. Review of Systems Constitutional: Reports: Anorexia, Chills, Fever, Malaise, Weakness, Fatigue HEENT: Denies: Head Aches, Sinus Congestion, Sinus Drainage Cardiovascular: Denies: Chest Pain, Palpitations Respiratory: Reports: Shortness of breath upon exertion. Denies: Cough, Shortness of breath at rest, Sputum production Gastrointestinal: Denies: Abdominal Pain, Nausea, Vomiting Genitourinary: Denies: Dysuria Musculoskeletal: Reports: Back Pain. Denies: Joint Pain, Joint Tenderness Skin: Reports: Skin Changes. Denies: Rash, Wounds Neurological: Denies: Numbness, Tingling, Focal weakness Psychiatric: Reports: Anxiety, Depression. Denies: Homicidal Ideations, Suicidal Ideations Hematologic/ Lymphatic: Denies: Easy Bruising, Easy Bleeding VTE Information - Inpt Only VTE Present on Admission: No VTE Mechan Device Prophylaxis: SCD's VTE Pharm Prophylaxis ordered?: Yes Patient Problems: Active and Suspected Problems Sepsis (Acute) Diabetes mellitus, type II (Acute) Subjective: Seated upright in the ED bed, ill-appearing, mildly diaphoretic. Objective: Physical Examination: General: awake, alert, oriented x 3 and cooperative, seated upright in the ED bed in no apparent distress, ill appearing, sweating. Skin: normal color, turgor, no icterus, cyanosis except posterior R thigh erythema, warm to touch, TTP, BL posterior buttock erythema, TTP, warm to touch with no obvious crepitus or wound but difficult examination secondary to habitus. HEENT: AT/NC, EOMI, PERRLA, mildly dry MM, no carotid bruits or JVD noted; however, thickened neck makes examination difficult. Lungs: Distant breath sounds secondary to habitus, moderate effort, mild decrease BL bases, no rales, ronchi or wheezing. Heart: Tachycardic with regular rhythm; no gallop, rub audible. Abdomen: soft, morbidly obese, NTTP, ND, normal BS, no HSM; however, habitus difficult secondary to habitus. Extremities: no cyanosis, clubbing, see skin. Neurological: patient awake, alert, oriented x 3; cognitive function intact; pupils equally reactive to light and accomodation; cranial nerves II-XII grossly normal, moving all 4 extremities, no focal deficits, strength preserved. Psychiatric: affect appears normal, no acute evidence of depressive or anxiety feelings. - Physical Exam Vital Signs Temp Pulse Resp BP Pulse Ox 102.1 F H 98 26 H 105/54 L 92 10/21/17 04:04 10/21/17 05:27 10/21/17 05:27 10/21/17 05:27 10/21/17 05:27 Oxygen Delivery Method Room Air Weight: 396 lb 6.258 oz Body Mass Index (BMI) 74.9 Laboratory Tests Past 24 Hrs 10/21/17 10/21/17 10/21/17 04:35 04:35 04:35 WBC 12.2 H RBC 4.23 Hgb 11.8 L Hct 36.3 L MCV 85.8 MCH 27.9 MCHC 32.5 RDW 13.5 RDW Differential 41.4 Plt Count 177 MPV 11.0 Immature Gran % (Auto) 0.300 Neut % (Auto) 90.7 H Lymph % (Auto) 4.0 L [place] % (Auto) 4.7 Eos % (Auto) 0.2 Baso % (Auto) 0.1 Absolute Neuts (auto) 11.1 H Absolute Lymphs (auto) 0.49 L Total Counted Not Reportable PT Pending INR Pending APTT Pending Sodium 139 Potassium 3.9 Chloride 103 Carbon Dioxide 27.0 Anion Gap 9 BUN 16 Creatinine 0.63 Estim Creat Clear Calc 74.35 Est GFR (MDRD) Af Amer 126 Est GFR (MDRD) Non-Af 104 BUN/Creatinine Ratio 25.5 H Glucose 202 H Lactic Acid Calcium 8.4 L Total Bilirubin 0.70 AST 8 L ALT 16 Alkaline Phosphatase 103 Total Protein 6.2 L Albumin 3.1 L Globulin 3.1 Albumin/Globulin Ratio 1.0 Urine Color Urine Clarity Urine pH Ur Specific [place] Urine Protein Urine Glucose (UA) Urine Ketones Urine Occult Blood Urine Nitrite Urine Bilirubin Urine Urobilinogen Ur Leukocyte Esterase Urine RBC Urine WBC Ur Squamous Epith Cells Urine Bacteria Urine Mucus 10/21/17 10/21/17 04:35 05:20 WBC RBC Hgb Hct MCV MCH MCHC RDW RDW Differential Plt Count MPV Immature Gran % (Auto) Neut % (Auto) Lymph % (Auto) [place] % (Auto) Eos % (Auto) Baso % (Auto) Absolute Neuts (auto) Absolute Lymphs (auto) Total Counted PT INR APTT Sodium Potassium Chloride Carbon Dioxide Anion Gap BUN Creatinine Estim Creat Clear Calc Est GFR (MDRD) Af Amer Est GFR (MDRD) Non-Af BUN/Creatinine Ratio Glucose Lactic Acid 1.0 Calcium Total Bilirubin AST ALT Alkaline Phosphatase Total Protein Albumin Globulin Albumin/Globulin Ratio Urine Color Pending Urine Clarity Pending Urine pH Pending Ur Specific [place] Pending Urine Protein Pending Urine Glucose (UA) Pending Urine Ketones Pending Urine Occult Blood Pending Urine Nitrite Pending Urine Bilirubin Pending Urine Urobilinogen Pending Ur Leukocyte Esterase Pending Urine RBC Pending Urine WBC Pending Ur Squamous Epith Cells Pending Urine Bacteria Pending Urine Mucus Pending Assessment/Plan All Active Problems Cellulitis (Acute) Sepsis (Acute) Diabetes mellitus, type II (Acute) The patient is a 57 y/o F w/ PMHx: Chronic Back and BL LE Pain following w/ Dr. Pacheco, Diabetes mellitus type II, CHF Unclear Type, Anxiety and Depression, Morbid Obesity, JEREMÍAS, GERD, HTN, Hx Frequent Cellulitis who presents to the [facility] ED on 10/21/17 with history of 24 hours R upper thigh and buttock cellulitis w/ onset fever seen per her PCP in the morning on day prior to presentation and initiated on clindamycin without improvement. (1) Acute Sepsis secondary to Acute Cellulitis: Febrile, tachycardic, WBC 12.2 with L shift. Will admit to [facility], maintain on IV Zosyn given sepsis appearance w/ MRSA assessment and if positive consider transition to vanc, was treated prior w/ ancef and transitioned at discharge per ID recommendation to oral keflex, plan repeat CBC in AM, continue offloading when able, monitor erythema outline with VS checks, gently hydrate given CHF history, LA normal. Given serial issues w/ cellulitis and recurrent admission will consult ID who have been following her prior. (2) CHF Unclear Type: Maintain on home regimen aspirin, Lasix, spironolactone. Not on statin therapy, BB with allergy noted nor LIANG inhibitor. (3) Diabetes mellitus type II: Hold oral home regimen, continue home insulin regimen, ADA diet, accu checks w/ ISS, HgbA1c pending w/ last 07/2017 8.2%, nutrition consulted for education and teaching. (4) Morbid Obesity: Weight loss and lifestyle changes encouraged, nutrition consulted. (5) Hypertension: Continue home regimen including Lasix, spironolactone, PRN hydralazine. (6) Anxiety and Depression: Continue home regimen of omeprazole, duloxetine, trazodone. (7) JEREMÍAS: BIPAP q HS. (8) GERD: Famotidine. (9) DVT prophylaxis: SCD, Lovenox. Code Visit Inpatient E&M: 89596 Init Hosp L3
[2017-10-21 05:54] LABS: Color, Urine Yellow (Yellow); Glucose, Dipstick Normal (Normal); Ketone-Dipstick 5 mg/dl (Negative); Leukocyte Esterase-Dipstick 25 /ul (Negative); Nitrite-Dipstick Negative (Negative); Occult Blood-Urine Negative /ul (Negative); Protein-Dipstick 15 mg/dl (Negative); Specific Gravity, Urine 1.015 (1.002-1.030); Urine Clarity Clear (Clear); Urine Urobilinogen 1 mg/dl (Normal)
[2017-10-21 06:11] LABS: Urine Bilirubin Dipstick 1 mg/dL (Negative)
[2017-10-21 06:12] LABS: Bacteria RARE /hpf (None Seen); Mucous, Urine 1+ /hpf (<or=2+); White Blood Cells 0-5 SEEN /hpf (0-5)
--- NOTE | 2017-10-21 06:39 | NURSING ---
305 SEPSIS, CELLULITIS WHITE
[2017-10-21 07:36] LABS: Bedside Glucose 176 mg/dL (70-110)
[2017-10-21 08:22] LABS: Magnesium 2.1 mg/dL (1.6-2.6)
[2017-10-21 08:29] LABS: Lactic Acid 0.7 mmol/L (0.4-2.0)
[2017-10-21 08:32] LABS: Hemoglobin A1c 7.2 % (4.2-6.3)
[2017-10-21] MEDS: Aspirin E.C. 81 MG Tablet PO (10:16)
[2017-10-21] MEDS: Gabapentin 300 MG Capsule PO ×2 (10:17→17:19)
[2017-10-21] MEDS: Insulin Lispro 100 UNIT/ML INSULN.PEN SC ×2 (10:36→21:06)
--- NOTE | 2017-10-21 11:10 | PCM.PROGNOTE ---
Patient Problems: Active and Suspected Problems Sepsis (Acute) Diabetes mellitus, type II (Acute) Subjective: Patient seen and examined. Complains of fever, chills. General malaise. Nausea without emesis. States she feels weak and is having difficulty ambulating. Patient states she has had recurrent cellulitis in the same area, right posterior thigh/posterior buttock. She states it seems to recur every few months. - Physical Exam General: Alert, Oriented x3, Cooperative, No apparent distress HEENT: Atraumatic, PERRLA, EOMI, Normocephalic Neck: Supple, No JVD, Negative Carotid Bruits Lungs: Clear to auscultation, Normal air movement Cardiovascular: Regular rate, Regular Rhythm, Normal S1, Normal S2, No murmurs Abdomen: Bowel Sounds Present, Soft, Non Tender, Non-Distended, Obese Extremities: No clubbing, No cyanosis, No edema, Capillary Refill Less than 3 Seconds Skin: - - Right posterior thigh and posterior buttock erythema with associated warmth to touch. No abscess or wounds noted. Musculoskeletal: No Tenderness to Palpation of Joints or Extremities Neurological: Cranial nerves II-XII grossly intact, Neuro grossly intact Psych/Mental Status: Normal Affect, Appropriate Vital Signs Temp Pulse Resp BP Pulse Ox 98 F 85 20 H 91/47 L 98 10/21/17 09:30 10/21/17 09:30 10/21/17 09:30 10/21/17 09:30 10/21/17 09:30 Oxygen Delivery Method Room Air Weight: 396 lb 6.258 oz Body Mass Index (BMI) 74.9 Laboratory Tests Past 24 Hrs 10/21/17 10/21/17 10/21/17 07:55 07:55 07:55 Hemoglobin A1c 7.2 H Lactic Acid 0.7 Magnesium 2.1 POC Glucose 10/21/17 07:32 POC Glucose 176 H Medical Necessity - Tobacco Use Smoking Status: Former smoker Tobacco Use: Non-smoker Assessment/Plan All Active Problems Cellulitis (Acute) Sepsis (Acute) Diabetes mellitus, type II (Acute) 1. Acute sepsis secondary to acute right posterior thigh and right posterior buttock cellulitis, recurrent-continue IV Zosyn. ID consulted given continued recurrence of cellulitis without clear etiology. Frequent position changes. Zofran as needed for nausea. PT. Check ESR/CRP. PRN pain regimen. Blood culture pending. 2. Chronic suspect diastolic CHF-continue home regimen including aspirin, Lasix, spironolactone. 3. Type 2 diabetes mellitus-home oral regimen on hold. Accu-Cheks before meals at bedtime with sliding scale insulin. Continue Lantus regimen. 4. Hypertension-stable, continue current regimen. 5. Anxiety/depression-continue home regimen. 6. GERD-continue famotidine. 7. JEREMÍAS-continue BiPAP nightly. 8. Morbid obesity-encourage diet and lifestyle modifications. DVT prophylaxis-Lovenox subcu, SCDs This patient was seen by BEVERLY Wilkinson under the supervision of Dr. Yousif.
[2017-10-21] MEDS: DULoxetine Hcl 60 MG Capsule PO (11:31)
[2017-10-21] MEDS: Furosemide 20 MG Tablet PO (11:31)
[2017-10-21] MEDS: Famotidine 20 MG Tablet PO ×2 (11:31→21:05)
[2017-10-21] MEDS: Spironolactone 25 MG Tablet PO (11:31)
[2017-10-21] MEDS: Baclofen 10 MG Tablet PO ×2 (11:31→21:05)
[2017-10-21] MEDS: Enoxaparin 40 MG/0.4 ML Syringe SC ×2 (11:31→21:06)
[2017-10-21] MEDS: 0.9% Normal Saline 1,000 ML 100 ML IV ×2 (11:40→22:16)
[2017-10-21 12:25] LABS: Erythrocyte Sedimentation Rate 21 mm/hr (0-30)
[2017-10-21 13:25] LABS: Bedside Glucose 127 mg/dL (70-110)
[2017-10-21 14:17] LABS: M R Staph aureus DNA By PCR Negative (Negative); Probe Check PASS; Specimen Processing Control PASS
[2017-10-21] MEDS: Piperacil/Tazobactam 3.375 GM/50 ML ML IV ×2 (14:18→21:05)
[2017-10-21] MEDS: oxyCODONE 5 MG Tablet PO ×2 (14:19→18:53)
[2017-10-21] MEDS: Acetaminophen 325 MG Tablet 650 MG PO (17:22)
[2017-10-21 17:41] LABS: Bedside Glucose 119 mg/dL (70-110)
[2017-10-21] MEDS: ARIPiprazole 10 MG Tablet PO (21:06)
[2017-10-21] MEDS: traZODone 50 MG Tablet PO (21:06)
[2017-10-21] MEDS: Primidone 50 MG Tablet PO (21:07)
[2017-10-21 21:45] LABS: Bedside Glucose 201 mg/dL (70-110)
[2017-10-22] VITALS (11 sets, daily range): BP systolic 113–137; BP diastolic 54–78; PULSE 57–96; RESP 10–18; TEMP 36.6–37.4; O2SAT 91–97
[2017-10-22] MEDS: oxyCODONE 5 MG Tablet PO ×3 (04:58→22:50)
[2017-10-22] MEDS: Piperacil/Tazobactam 3.375 GM/50 ML ML IV ×3 (05:00→22:35)
[2017-10-22 06:15] LABS: Absolute Lymphocyte Count 1.04 X10^3/ul (0.83-4.51); Absolute Neutrophil Count 4.2 X10^3/uL (2.0-7.7); Eosinophil# 0.11 X10^3/uL; Eosinophils% 1.9 % (0-5); Hematocrit 35.4 % (37-47); Hemoglobin 11.3 g/dl (12.0-15.0); Lymphocyte # 1.04 X10^3/ul (4.0); Lymphocyte % 17.6 % (19-41); Mean Corp Hgb Conc 31.9 g/gl (32-36); Mean Corpuscular Hgb 28.2 pg (27.0-32.0); Mean Corpuscular Volume 88.3 fL (81-99); Mean Platelet Vol. 11.5 fl (6.2-12.0); Monocyte# 0.57 X10^3/uL; Monocyte% 9.7 % (0-10); Neutrophil # 4.17 X10^3/uL (2.7-7.7); Neutrophil % 70.6 % (47-70); Platelet Count 169 K/mm3 (150-450); RBC Distribution Width CV 13.9 % (11.6-14.6); RBC Distribution Width SD 44.7 fl (35.1-43.9); Red Blood Count 4.01 M/mm3 (4.2-5.4); White Blood Count 5.9 K/mm3 (4.4-11.0)
[2017-10-22 06:18] LABS: POSITIVE COUNT NO; POSITIVE DIFFERENTIAL NO; POSITIVE MORPHOLOGY NO
[2017-10-22 06:40] LABS: Anion Gap 8 (5-15); BUN 16 mg/dL (7-18); BUN/Creat Ratio 27.9 RATIO (10-20); Calcium,Total 8.2 mg/dL (8.5-10.1); Chloride 107 mmol/L (98-107); Creatinine, Serum 0.57 mg/dL (0.55-1.02); EST Glomerular Filtration Rate 115 mL/min (>60); Est Glom Filt Rate - Afr Amer 139 mL/min (>60); Estimated Creatinine Clearance 82.17 ml/min; Glucose 144 mg/dL (74-106); Potassium 4.1 mmol/L (3.5-5.1); Sodium Level 143 mmol/L (136-145)
[2017-10-22] MEDS: Insulin Lispro 100 UNIT/ML INSULN.PEN SC ×4 (06:48→22:37)
[2017-10-22] MEDS: Acetaminophen 325 MG Tablet 650 MG PO ×2 (06:48→22:51)
[2017-10-22 06:56] LABS: Bedside Glucose 150 mg/dL (70-110)
[2017-10-22 08:31] LABS: Bedside Glucose 131 mg/dL (70-110)
[2017-10-22] MEDS: 0.9% Normal Saline 1,000 ML 100 ML IV ×2 (08:49→17:42)
[2017-10-22] MEDS: Baclofen 10 MG Tablet PO ×2 (09:10→22:37)
[2017-10-22] MEDS: Gabapentin 300 MG Capsule PO ×2 (09:10→17:04)
[2017-10-22] MEDS: Famotidine 20 MG Tablet PO ×2 (09:10→22:38)
[2017-10-22] MEDS: Enoxaparin 40 MG/0.4 ML Syringe SC ×2 (09:10→22:38)
[2017-10-22] MEDS: DULoxetine Hcl 60 MG Capsule PO (09:11)
[2017-10-22] MEDS: Aspirin E.C. 81 MG Tablet PO (09:11)
--- NOTE | 2017-10-22 09:27 | PCM.PROGNOTE ---
<Barbara Coffman - Last Filed: 10/22/17 09:42> Patient Problems: Active and Suspected Problems Sepsis (Acute) Diabetes mellitus, type II (Acute) Subjective: Patient seen and examined. Complains of diaphoresis this morning. Denies further nausea. Overall states she feels improved. - Physical Exam General: Alert, Oriented x3, Cooperative HEENT: Atraumatic, PERRLA, EOMI, Normocephalic Neck: Supple, No JVD, Negative Carotid Bruits Lungs: Clear to auscultation, Normal air movement Cardiovascular: Regular rate, Regular Rhythm, Normal S1, Normal S2, No murmurs Abdomen: Bowel Sounds Present, Soft, Non Tender, Non-Distended, Obese Extremities: No clubbing, No cyanosis, No edema, Capillary Refill Less than 3 Seconds Skin: - - Right posterior thigh and posterior buttock erythema with associated warmth to touch. No abscess or wounds noted. Erythema slightly improved. Musculoskeletal: No Tenderness to Palpation of Joints or Extremities Neurological: Cranial nerves II-XII grossly intact, Neuro grossly intact Psych/Mental Status: Normal Affect, Appropriate Vital Signs Temp Pulse Resp BP Pulse Ox 98.8 F 91 16 116/54 L 91 10/22/17 09:08 10/22/17 09:08 10/22/17 09:08 10/22/17 09:08 10/22/17 09:08 Oxygen Delivery Method Room Air Weight: 396 lb 6.258 oz Body Mass Index (BMI) 74.9 Intake and Output for Last 24 Hours 10/20/17 10/21/17 10/22/17 23:59 23:59 23:59 Intake Total 3357 / 3357 831 / 831 Output Total 900 / 900 410 / 410 Balance 2457 / 2457 421 / 421 Laboratory Tests Past 24 Hrs 10/21/17 10/22/17 10/22/17 11:30 05:05 05:05 WBC 5.9 RBC 4.01 L Hgb 11.3 L Hct 35.4 L MCV 88.3 MCH 28.2 MCHC 31.9 L RDW 13.9 RDW Differential 44.7 H Plt Count 169 MPV 11.5 Immature Gran % (Auto) 0.200 Neut % (Auto) 70.6 H Lymph % (Auto) 17.6 L [place] % (Auto) 9.7 Eos % (Auto) 1.9 Baso % (Auto) 0.0 Absolute Neuts (auto) 4.2 Absolute Lymphs (auto) 1.04 Total Counted Not Reportable Sodium 143 Potassium 4.1 Chloride 107 Carbon Dioxide 28.0 Anion Gap 8 BUN 16 Creatinine 0.57 Estim Creat Clear Calc 82.17 Est GFR (MDRD) Af Amer 139 Est GFR (MDRD) Non-Af 115 BUN/Creatinine Ratio 27.9 H Glucose 144 H Calcium 8.2 L MRSA (PCR) Negative POC Glucose 10/22/17 10/22/17 10/21/17 08:25 06:41 21:05 POC Glucose 131 H 150 H 201 H 10/21/17 10/21/17 17:14 13:08 POC Glucose 119 H 127 H Medical Necessity - Tobacco Use Smoking Status: Former smoker Tobacco Use: Non-smoker Assessment/Plan All Active Problems Cellulitis (Acute) Sepsis (Acute) Diabetes mellitus, type II (Acute) 1. Acute sepsis secondary to acute right posterior thigh and right posterior buttock cellulitis, recurrent-continue IV Zosyn. ID consulted given continued recurrence of cellulitis without clear etiology. Frequent position changes. Zofran as needed for nausea. PT. ESR WNL. CRP elevated, 127. PRN pain regimen. Blood culture pending. 2. Hypotension-secondary to #1. Improved. Continue to monitor. 3. Chronic suspect diastolic CHF-continue home regimen including aspirin, Lasix, spironolactone. 4. Type 2 diabetes mellitus-home oral regimen on hold. Accu-Cheks before meals at bedtime with sliding scale insulin. Continue Lantus regimen. 5. Hypertension-stable, continue current regimen. 6. Anxiety/depression-continue home regimen. 7. GERD-continue famotidine. 8. JEREMÍAS-continue BiPAP nightly. 9. Morbid obesity-encourage diet and lifestyle modifications. DVT prophylaxis-Lovenox subcu, SCDs This patient was seen by BEVERLY Wilkinson under the supervision of Dr. Yousif. <Kerline Yousif E - Last Filed: 10/22/17 10:45> - Physical Exam Vital Signs Temp Pulse Resp BP Pulse Ox 98.8 F 91 16 116/54 L 91 10/22/17 09:08 10/22/17 09:08 10/22/17 09:08 10/22/17 09:08 10/22/17 09:08 Oxygen Delivery Method Room Air Weight: 396 lb 6.258 oz Body Mass Index (BMI) 74.9 Intake and Output for Last 24 Hours 10/20/17 10/21/17 10/22/17 23:59 23:59 23:59 Intake Total 3357 / 3357 831 / 831 Output Total 900 / 900 410 / 410 Balance 2457 / 2457 421 / 421 Laboratory Tests Past 24 Hrs 10/21/17 10/22/17 10/22/17 11:30 05:05 05:05 WBC 5.9 RBC 4.01 L Hgb 11.3 L Hct 35.4 L MCV 88.3 MCH 28.2 MCHC 31.9 L RDW 13.9 RDW Differential 44.7 H Plt Count 169 MPV 11.5 Immature Gran % (Auto) 0.200 Neut % (Auto) 70.6 H Lymph % (Auto) 17.6 L [place] % (Auto) 9.7 Eos % (Auto) 1.9 Baso % (Auto) 0.0 Absolute Neuts (auto) 4.2 Absolute Lymphs (auto) 1.04 Total Counted Not Reportable Sodium 143 Potassium 4.1 Chloride 107 Carbon Dioxide 28.0 Anion Gap 8 BUN 16 Creatinine 0.57 Estim Creat Clear Calc 82.17 Est GFR (MDRD) Af Amer 139 Est GFR (MDRD) Non-Af 115 BUN/Creatinine Ratio 27.9 H Glucose 144 H Calcium 8.2 L MRSA (PCR) Negative POC Glucose 10/22/17 10/22/17 10/21/17 08:25 06:41 21:05 POC Glucose 131 H 150 H 201 H 10/21/17 10/21/17 17:14 13:08 POC Glucose 119 H 127 H Assessment/Plan Hospitalist note: I am seeing this patient in conjunction with Barbara Coffman. I independently seen and examined the patient. Progress note above, laboratory data and imaging studies reviewed and I concur with the above treatment plan. Patient was admitted for skin redness over the right buttock and right posterior thigh with pain and fever. She was diagnosed as a case of acute cellulitis with sepsis of the right buttock/right posterior thigh. She has been on IV antibiotics. Her vital signs are stable, afebrile. Erythema and minimal swelling of the right buttock and right posterior thigh remained almost the same. Patient is having less pain. Her vital signs are stable, afebrile. - Physical Exam General: Alert, Oriented x3, Cooperative, No apparent distress. HEENT: Atraumatic, PERRLA, EOMI. Neck: Supple, No JVD, Negative Carotid Bruits, Trachea Midline, Thyroid Normal. Lungs: Diminished breath sounds bilateral, otherwise clear, No rhonchi, No wheeze, No rales. Cardiovascular: Regular rate, Regular Rhythm, Normal S1, Normal S2, PMI Normal. Abdomen: Bowel Sounds Present, Soft, Non Tender, Non-Distended, No Hepato-splenomegaly. Extremities: No clubbing, No cyanosis, No edema Skin: Erythema and mild swelling with well-demarcated margins involving the right buttock and right posterior thigh without evidence of open wounds or drainage. Neurological: Neuro grossly intact Vital Signs are stable. Assessment and plan: #1 probable acute right buttock/right posterior thigh cellulitis with sepsis: She is on IV Zosyn. Her vital signs are stable, afebrile, no leukocytosis. Blood and urine cultures are pending. She has been afebrile overnight. Local erythema and swelling is not getting any better. Her skin findings are not typical for acute cellulitis, allergic reaction is the other possibility. Plan to continue IV Zosyn, will try couple of doses of IV Solu-Medrol for possible allergic reaction. #2 other chronic medical problems: Stable, continue current medications as above. This note was generated with [employer] dictation software. It may contain incorrect words, spelling, and punctuation that were not noted in checking the note before signing. Code Visit Inpatient E&M: 17233 Subs Hosp L2
[2017-10-22] MEDS: Spironolactone 25 MG Tablet PO (10:59)
[2017-10-22] MEDS: 0.9% NaCl Peripheral Flush Adult/Peds IV ×2 (12:39→20:08)
[2017-10-22] MEDS: MethylPREDNISolone 125 MG/2 ML Vial 60 MG IV ×2 (12:39→20:07)
[2017-10-22] MEDS: Furosemide 20 MG Tablet PO (13:32)
[2017-10-22 16:16] LABS: Bedside Glucose 205 mg/dL (70-110)
[2017-10-22] MEDS: ARIPiprazole 10 MG Tablet PO (22:36)
[2017-10-22] MEDS: traZODone 50 MG Tablet PO (22:36)
[2017-10-22] MEDS: Primidone 50 MG Tablet PO (22:37)
[2017-10-22 23:45] LABS: Bedside Glucose 266 mg/dL (70-110)
[2017-10-22 23:55] LABS: Bedside Glucose 170 mg/dL (70-110)
[2017-10-23 02:15] VITALS: PULSE 49; RESP 10; RESP 14; O2SAT 96
[2017-10-23 02:49] VITALS: BP 142/76; PULSE 72; RESP 18; TEMP 36.3; O2SAT 96
[2017-10-23 03:41] LABS: Bedside Glucose 264 mg/dL (70-110)
[2017-10-23] MEDS: Piperacil/Tazobactam 3.375 GM/50 ML ML IV (04:58)
[2017-10-23] MEDS: 0.9% Normal Saline 1,000 ML 100 ML IV (04:58)
--- NOTE | 2017-10-23 05:29 | NURSING ---
Infectious Disease answering service aware of consult.
[2017-10-23] MEDS: Insulin Lispro 100 UNIT/ML INSULN.PEN SC ×2 (06:52→10:17)
[2017-10-23 07:06] LABS: Bedside Glucose 241 mg/dL (70-110)
[2017-10-23 07:14] VITALS: O2SAT 98
[2017-10-23 07:57] VITALS: BP 131/73; PULSE 55; RESP 18; TEMP 36.6; O2SAT 100
[2017-10-23] MEDS: Aspirin E.C. 81 MG Tablet PO (08:07)
[2017-10-23] MEDS: Furosemide 20 MG Tablet PO (08:07)
[2017-10-23] MEDS: Gabapentin 300 MG Capsule PO (08:07)
[2017-10-23] MEDS: Famotidine 20 MG Tablet PO (10:18)
[2017-10-23] MEDS: Enoxaparin 40 MG/0.4 ML Syringe SC (10:18)
[2017-10-23] MEDS: DULoxetine Hcl 60 MG Capsule PO (10:18)
[2017-10-23] MEDS: Spironolactone 25 MG Tablet PO (10:18)
[2017-10-23] MEDS: Baclofen 10 MG Tablet PO (10:18)
--- NOTE | 2017-10-23 10:30 | CASEMGMT ---
LOLY GARCIA Face to Face with patient for initial transition planning/care coordination assessment. RN JOSE introduced self and role at [facility]. Patient sitting in chair, alert and oriented. Patient willing to participate in assessment and is able to answer all questions appropriately. Care providers, pharmacy, and demographics verified. See link attached. Patient wishes to discharge home with resumption of HHC and aide services through [facility] and [facility]. Patient states she has no further needs or concerns at this time. CM to follow for discharge planning needs that may arise. Disposition Plan: Patient to discharge home with HHC, aide services, and follow-up plans in place. Janell GARCÍA, RN, CM
[2017-10-23 10:31] LABS: Bedside Glucose 231 mg/dL (70-110)
--- NOTE | 2017-10-23 11:01 | PCM.HP.ID ---
Problem List (1) Cellulitis Status: Acute Qualifiers: Laterality: unspecified laterality Reason for Consult: cellulitis Consulted by: Dr. Yousif History of Present Illness: The patient is a 57 year old F with DM and recurrent cellulitis who presented 10/21 with one day history of R thigh/buttock redness, pain, swelling, and warmth. No known inciting events. Has had 4 episodes of this in past few months. No drainage. No pets at home. Associated with fever. Started on clinda without improvement, came to ED, had fever to 102.1, wbc 12. Admitted on zosyn, now feeling much better. Redness nearly resolved. Full ROS Performed and neg except as noted above. - Medical History Past Medical History (Chronic Problems): Chronic Problems Anxiety and depression (Chronic) Heart failure (Chronic) Chronic back pain (Chronic) History of pneumonia (Chronic) JEREMÍAS (obstructive sleep apnea) (Chronic) Lumbosacral neuritis (Chronic) Esophageal reflux (Chronic) Morbid obesity (Chronic) Hypertension (Chronic) Allergies/Adverse Reactions: Allergies vancomycin Allergy (Verified 10/21/17 04:07) Rash amlodipine Adverse Reaction (Verified 10/21/17 04:07) Unknown atenolol Adverse Reaction (Verified 10/21/17 04:07) Unknown bupropion HCl [From Wellbutrin] Adverse Reaction (Verified 10/21/17 04:07) Unknown fluoxetine HCl [From Prozac] Adverse Reaction (Verified 10/21/17 04:07) Unknown meloxicam [From Mobic] Adverse Reaction (Verified 10/21/17 04:07) Unknown metoprolol Adverse Reaction (Verified 10/21/17 04:07) Unknown pregabalin [From Lyrica] Adverse Reaction (Verified 10/21/17 04:07) Unknown quetiapine fumarate [From Seroquel] Adverse Reaction (Verified 10/21/17 04:07) Unknown quinapril HCl [From Accupril] Adverse Reaction (Verified 10/21/17 04:07) Unknown risperidone Adverse Reaction (Verified 10/21/17 04:07) Unknown rofecoxib [From Vioxx] Adverse Reaction (Verified 10/21/17 04:07) Unknown sitagliptin phosphate [From Januvia] Adverse Reaction (Verified 10/21/17 04:07) Unknown venlafaxine HCl [From Effexor] Adverse Reaction (Verified 10/21/17 04:07) Unknown Home Medications: Ambulatory Orders Medication Instructions Recorded Aspirin [Adult Low Dose Aspirin EC] 81 mg PO DAILY 12/02/14 Duloxetine HCl 60 mg PO DAILY 12/02/14 Furosemide 20 mg PO DAILY 12/02/14 Linagliptin [Tradjenta] 5 mg PO DAILY 12/02/14 Potassium Chloride [K-Dur] 10 meq PO DAILY 12/02/14 Ranitidine [Zantac] 150 mg PO DAILY 12/02/14 Spironolactone [Aldactone] 25 mg PO DAILY 12/02/14 Baclofen 10 mg PO BID 08/01/17 Gabapentin [Neurontin] 300 mg PO BID 08/01/17 Primidone [Mysoline] 50 mg PO QHS 08/01/17 traZODone [Desyrel] 50 mg PO QHS 08/01/17 Cetirizine HCl [Zyrtec] 10 mg PO DAILY PRN PRN 09/09/17 Glimepiride [Amaryl] 4 mg PO DAILY 09/09/17 Hydrocodone/Acetaminophen [[place] 1 each PO BID PRN PRN 09/09/17 5-325 Tablet] Indomethacin [Indocin] 25 mg PO BID PRN 09/09/17 Nitroglycerin [Nitrostat] 0.4 mg SL PRN PRN 09/09/17 Aripiprazole [Abilify] 10 mg PO QHS 10/21/17 Clindamycin [Cleocin] 150 mg PO 4X/DAY 10/21/17 Insulin Glargine,Hum.rec.anlog 30 unit SQ QHS 10/21/17 [[place]akelag[place]iff [place] U-100] - Social History SMOKING STATUS:: Former smoker Vital Signs Temp Pulse Resp BP Pulse Ox 97.8 F 55 L 18 131/73 H 100 10/23/17 07:57 10/23/17 07:57 10/23/17 07:57 10/23/17 07:57 10/23/17 07:57 Oxygen Delivery Method Room Air Weight: 182.299 kg Body Mass Index (BMI) 74.9 reviewed, wbc 12 now down to 6 - Other Studies Radiology: [] reviewed Other Studies: [] Route of nutrition/ use of supplements: [] Nutritional Intake: [] IV Site: [] Bailey Catheter: [] - Physical Exam General: Alert, Oriented x3, Cooperative, No apparent distress HEENT: Atraumatic, PERRLA, EOMI Neck: Supple, No Nodes Lungs: Clear to auscultation, Normal air movement Cardiovascular: Regular rate, Regular Rhythm, No murmurs Abdomen: Soft, Non-Distended, Obese Skin: - - R lateral thigh with fading redness, minimal induration/warmth IV Site: Peripheral, without redness Musculoskeletal: No Tenderness to Palpation of Joints or Extremities Neurological: Cranial nerves II-XII grossly intact - Assessment/Plan Antibiotics: [] Assessment/Plan: [] Active and Suspected Problems Sepsis (Acute) Diabetes mellitus, type II (Acute) Sepsis due to R thigh cellulitis - much improved. Fever and leukocytosis resolved. Ok for d/c home on po keflex 500mg tid for 5 more days. Gave her information and instructions about using hibiclens washes weekly to help prevent further recurrence. Will follow, thank you, ID follow prn. D/w primary team.
--- NOTE | 2017-10-23 11:54 | PCM.DC ---
- Discharge Diagnoses Current Active Problems: Current Active and Chronic Problems Sepsis (Acute) Anxiety and depression (Chronic) Heart failure (Chronic) Diabetes mellitus, type II (Acute) Chronic back pain (Chronic) You will use the following diet at home:: Calorie/Carbohydrate Controlled (specify 1200, 1400, etc) Discharge Activity: Return to Normal Activity Call your doctor if you observe: Fever of 101 or Higher, Shortness of breath, Dizziness, Fainting spells, Chest pain Additional Instructions: Complete hibiclens washes weekly to prevent recurrence of cellulitis. Allergies/Adverse Reactions: Allergies vancomycin Allergy (Verified 10/21/17 04:07) Rash amlodipine Adverse Reaction (Verified 10/21/17 04:07) Unknown atenolol Adverse Reaction (Verified 10/21/17 04:07) Unknown bupropion HCl [From Wellbutrin] Adverse Reaction (Verified 10/21/17 04:07) Unknown fluoxetine HCl [From Prozac] Adverse Reaction (Verified 10/21/17 04:07) Unknown meloxicam [From Mobic] Adverse Reaction (Verified 10/21/17 04:07) Unknown metoprolol Adverse Reaction (Verified 10/21/17 04:07) Unknown pregabalin [From Lyrica] Adverse Reaction (Verified 10/21/17 04:07) Unknown quetiapine fumarate [From Seroquel] Adverse Reaction (Verified 10/21/17 04:07) Unknown quinapril HCl [From Accupril] Adverse Reaction (Verified 10/21/17 04:07) Unknown risperidone Adverse Reaction (Verified 10/21/17 04:07) Unknown rofecoxib [From Vioxx] Adverse Reaction (Verified 10/21/17 04:07) Unknown sitagliptin phosphate [From Januvia] Adverse Reaction (Verified 10/21/17 04:07) Unknown venlafaxine HCl [From Effexor] Adverse Reaction (Verified 10/21/17 04:07) Unknown Medications to take at Discharge Aspirin [Adult Low Dose Aspirin EC] 81 mg PO DAILY 12/02/14 Duloxetine HCl 60 mg PO DAILY 12/02/14 Furosemide 20 mg PO DAILY 12/02/14 Linagliptin [Tradjenta] 5 mg PO DAILY 12/02/14 Potassium Chloride [K-Dur] 10 meq PO DAILY 12/02/14 Ranitidine [Zantac] 150 mg PO DAILY 12/02/14 Spironolactone [Aldactone] 25 mg PO DAILY 12/02/14 Baclofen 10 mg PO BID 08/01/17 Gabapentin [Neurontin] 300 mg PO BID 08/01/17 Primidone [Mysoline] 50 mg PO QHS 08/01/17 traZODone [Desyrel] 50 mg PO QHS 08/01/17 Cetirizine HCl [Zyrtec] 10 mg PO DAILY PRN PRN 09/09/17 Glimepiride [Amaryl] 4 mg PO DAILY 09/09/17 Hydrocodone/Acetaminophen [[place] 5-325 Tablet] 1 each PO BID PRN PRN 09/09/17 Indomethacin [Indocin] 25 mg PO BID PRN 09/09/17 Nitroglycerin [Nitrostat] 0.4 mg SL PRN PRN 09/09/17 Aripiprazole [Abilify] 10 mg PO QHS 10/21/17 Insulin Glargine,Hum.rec.anlog [Basaglar Kwikpen U-100] 30 unit SQ QHS 10/21/17 Cephalexin [Keflex] 500 mg PO Q8 #15 cap 10/23/17 The following prescriptions were given: Cephalexin [Keflex] 500 mg PO Q8 #15 cap Primary Care Physician: Vincent Negro MD [Primary Care Provider] - Please follow up with your Primary Care Physician in: 1 Week Test Results: Test results from this visit will be discussed in further detail at your follow-up appointment, if applicable. Please Follow Up With: Michele Reilly MD - Infectious disease When: As needed Proposed Discharge Date: 10/23/17
--- NOTE | 2017-10-23 11:56 | PCM.DC.SUM ---
<Barbara Coffman - Last Filed: 10/23/17 12:01> Discharge Date and Diagnosis Date of Admission: 10/21/17 Date of Discharge: 10/23/17 - Primary Discharge Diagnosis Active and Suspected Problems 1. Acute sepsis secondary to acute right posterior thigh and right posterior buttock cellulitis, recurrent 2. Hypotension, secondary to #1-resolved. - Secondary Discharge Diagnosis Chronic Problems Anxiety and depression (Chronic) Heart failure (Chronic) Chronic back pain (Chronic) History of pneumonia (Chronic) JEREMÍAS (obstructive sleep apnea) (Chronic) Lumbosacral neuritis (Chronic) Esophageal reflux (Chronic) Morbid obesity (Chronic) Hypertension (Chronic) Hospital Course and Treatment Imaging Results: Diagnostic Data Chest X-Ray 10/21/17 04:33 IMPRESSION: Borderline cardiomegaly and mild pulmonary congestion. Electronically Signed: Renee Navarrete MD at 5:28 EDT , Service support , Dr. Reilly- ID Operations: None Procedures: None Summary of Care Provided: The patient is a 57 year old F admitted 10/21/17 due to skin redness, fever. 1. Acute sepsis secondary to acute right posterior thigh and right posterior buttock cellulitis, recurrent-treated with IV Zosyn. ID consulted given continued recurrence of cellulitis without clear etiology. ESR WNL. CRP elevated, 127. Infectious disease recommending Keflex 500 mg 3 times daily for 5 more days at discharge. Redness and erythema significantly improved. Patient has remained afebrile. ID recommending hibiclens washes weekly to prevent recurrence. Follow with primary care physician in 1 week. Follow-up with ID as needed. 2. Hypotension-secondary to #1. Resolved. 3. Chronic suspect diastolic CHF-continue home regimen including aspirin, Lasix, spironolactone. 4. Type 2 diabetes mellitus-continue home regimen. Hemoglobin A1c 7.2%. 5. Hypertension-stable, continue current regimen. 6. Anxiety/depression-continue home regimen. 7. GERD-continue famotidine. 8. JEREMÍAS-continue BiPAP nightly. 9. Morbid obesity-encourage diet and lifestyle modifications. General: Alert, Oriented x3, Cooperative HEENT: Atraumatic, PERRLA, EOMI, Normocephalic Neck: Supple, No JVD, Negative Carotid Bruits Lungs: Clear to auscultation, Normal air movement Cardiovascular: Regular rate, Regular Rhythm, Normal S1, Normal S2, No murmurs Abdomen: Bowel Sounds Present, Soft, Non Tender, Non-Distended, Obese Extremities: No clubbing, No cyanosis, No edema, Capillary Refill Less than 3 Seconds Skin: - - Right posterior thigh and posterior buttock erythema with associated warmth to touch. No abscess or wounds noted. Erythema/warmth improved. Musculoskeletal: No Tenderness to Palpation of Joints or Extremities Neurological: Cranial nerves II-XII grossly intact, Neuro grossly intact Psych/Mental Status: Normal Affect, Appropriate Patient seen exam prior to discharge. Physical assessment as noted above. Patient stable for discharge home with the follow-up her conditions as noted above. This patient was seen by BEVERLY Wilkinson under the supervision of Dr. Yousif. Discharge Diet: 1800 Calorie Control Diet, Carb Control Diet Discharge Activity: Return to Normal Activity Call your doctor if you observe: Fever of 101 or Higher, Shortness of breath, Dizziness, Fainting spells, Chest pain Home Medications: Medications to take at Discharge Aspirin [Adult Low Dose Aspirin EC] 81 mg PO DAILY 12/02/14 Duloxetine HCl 60 mg PO DAILY 12/02/14 Furosemide 20 mg PO DAILY 12/02/14 Linagliptin [Tradjenta] 5 mg PO DAILY 12/02/14 Potassium Chloride [K-Dur] 10 meq PO DAILY 12/02/14 Ranitidine [Zantac] 150 mg PO DAILY 12/02/14 Spironolactone [Aldactone] 25 mg PO DAILY 12/02/14 Baclofen 10 mg PO BID 08/01/17 Gabapentin [Neurontin] 300 mg PO BID 08/01/17 Primidone [Mysoline] 50 mg PO QHS 08/01/17 traZODone [Desyrel] 50 mg PO QHS 08/01/17 Cetirizine HCl [Zyrtec] 10 mg PO DAILY PRN PRN 09/09/17 Glimepiride [Amaryl] 4 mg PO DAILY 09/09/17 Hydrocodone/Acetaminophen [[place] 5-325 Tablet] 1 each PO BID PRN PRN 09/09/17 Indomethacin [Indocin] 25 mg PO BID PRN 09/09/17 Nitroglycerin [Nitrostat] 0.4 mg SL PRN PRN 09/09/17 Aripiprazole [Abilify] 10 mg PO QHS 10/21/17 Insulin Glargine,Hum.rec.anlog [[place]akelag[place] U-100] 30 unit SQ QHS 10/21/17 Cephalexin [Keflex] 500 mg PO Q8 #15 cap 10/23/17 Following Prescrptions Were Given to Patient: Cephalexin [Keflex] 500 mg PO Q8 #15 cap Primary Care Physician: Vincent Negro MD [Primary Care Provider] - Please follow up with your Primary Care Physician in: 1 Week Please Follow Up With: Michele Reilly MD - Infectious disease When: As needed Disposition: Home Minutes spent on discharge:: 35 Patient Condition:: Stable Medical Necessity - Tobacco Use Smoking Status: Former smoker Tobacco Use: Non-smoker Meaningful Use Info Meaningful Use Diagnoses (Choose all that apply): None applicable <Kerline Yousif E - Last Filed: 10/23/17 12:30> Discharge Date and Diagnosis - Secondary Discharge Diagnosis Chronic Problems Anxiety and depression (Chronic) Heart failure (Chronic) Chronic back pain (Chronic) History of pneumonia (Chronic) JEREMÍAS (obstructive sleep apnea) (Chronic) Lumbosacral neuritis (Chronic) Esophageal reflux (Chronic) Morbid obesity (Chronic) Hypertension (Chronic) Hospital Course and Treatment Summary of Care Provided: Hospitalist note: Discharge summary above reviewed and I agree with the above discharge and treatment plan. Patient was admitted for right buttock and right posterior thigh erythema and swelling, diagnosed with acute right posterior thigh and right buttock cellulitis with sepsis. Patient has been having this problem recurrently. She was treated with IV Zosyn. On admission she was found to have findings consistent with sepsis due to the acute cellulitis. Her lactic acid was normal. Her blood pressure was borderline but improved with IV fluids. Her routine blood work was unremarkable except for leukocytosis which resolved. Urine culture revealed no growth. Blood culture was negative up to the time of discharge. Because of the locking of the erythema and swelling of the right buttock and right posterior thigh, there was a concern that she may have allergic reaction. But she has been having recurrent cellulitis of that area. With IV antibiotic therapy, local erythema and swelling of the right buttock and right posterior thigh improved. Patient remained afebrile for more than 48 hours. Patient discharged home in a stable medical condition, discharged on Keflex according to infectious disease recommendations, continued on her home medications, recommended follow-up with PCP in 1 week and follow-up with infectious disease as needed. - Physical Exam General: Alert, Oriented x3, Cooperative, No apparent distress. HEENT: Atraumatic, PERRLA, EOMI. Neck: Supple, No JVD, Negative Carotid Bruits, Trachea Midline, Thyroid Normal. Lungs: Diminished breath sounds bilateral, otherwise clear, No rhonchi, No wheeze, No rales. Cardiovascular: Regular rate, Regular Rhythm, Normal S1, Normal S2, PMI Normal. Abdomen: Bowel Sounds Present, Soft, Non Tender, Non-Distended, No Hepato-splenomegaly, morbidly obese. Extremities: No clubbing, No cyanosis, No edema Skin: Erythema and mild swelling of right buttock and right posterior thigh improved, no evidence of open wounds or drainage. Neurological: Neuro grossly intact Vital Signs are stable. This note was generated with CX dictation software. It may contain incorrect words, spelling, and punctuation that were not noted in checking the note before signing. Disposition: Home Minutes spent on discharge:: 32 Patient Condition:: Stable Meaningful Use Info Meaningful Use Diagnoses (Choose all that apply): None applicable Code Visit Inpatient E&M: 78031 Disch Hosp
--- NOTE | 2017-10-23 12:21 | PCA ---
MADE APPOINTMENT FOR FOLLOWUP FOR DOCTOR [facility] OFFICE FOR AT [phone]
--- NOTE | 2017-10-23 12:25 | CASEMGMT ---
Social Work Note SW placed a call to pt's JOSE Lyons at [facility] and updated her on pt's admission into [facility] and that pt is being discharged home today. Janell Coates MECHANICAL EQUIPMENT TEST ENGINEER, BREAST WORKER
[2017-10-23] MEDS: Cephalexin 500 MG Capsule PO (12:30)
[2017-10-23] MEDS: oxyCODONE 5 MG Tablet PO (12:30)
[2017-10-23 12:41] VITALS: BP 116/65; PULSE 78; RESP 18; TEMP 36.6; O2SAT 100
--- NOTE | 2017-10-25 14:39 | CASEMGMT ---
LOLY GARCIA PHONE CALL. DC Date: 10/23/17 LACHoang 4 Disposition: Home with resumption of services through [facility]. -Intro role of CM to patient. she states she is doing well, no questions re: prescriptions. Pt is continuing her antibiotic and will take until complete. F/U made with Dr. Negro on Nov 08, 2017. No suggestions given for [facility]- pt states her care was excellent. LOLY GARCIA thanked her for using [facility]. Liliane MONTANEZN RN ACM
== END 2017-10-23 13:30 | disposition home or self-care (01) | DRG 872 ==
LOC: ED 04:48 → MS3 06:11
PROVIDERS: Nurse Practitioner Family; Admitting Provider Family Medicine; Emergency Provider Emergency Medicine; Family Provider Family Medicine; PCP Family Medicine; Visit Provider Hospitalist
DX: A41.9 Sepsis, unspecified organism (principal); L03.317 Cellulitis of buttock; L03.115 Cellulitis of right lower limb; Z68.45 Body mass index [BMI] 70 or greater, adult; I50.32 Chronic diastolic (congestive) heart failure; F41.9 Anxiety disorder, unspecified; F32.9 Major depressive disorder, single episode, unspecified; I11.0 Hypertensive heart disease with heart failure; G89.29 Other chronic pain; G47.33 Obstructive sleep apnea (adult) (pediatric); K21.9 Gastro-esophageal reflux disease without esophagitis; E66.01 Morbid (severe) obesity due to excess calories; M54.17 Radiculopathy, lumbosacral region; Z87.01 Personal history of pneumonia (recurrent); I95.9 Hypotension, unspecified; E11.9 Type 2 diabetes mellitus without complications; Z79.4 Long term (current) use of insulin
CPT/HCPCS: 36415; 71045; 80048; 80053; 81001; 82962; 83036; 83605; 83735; 85025; 85610; 85652; 85730; 86140; 87040; 87086; 87641; 93005; 94002; 94003; 97110; 97116; 97162; 97802; 99285; J7030; J7040; J7050; P9612; A4216

== ENCOUNTER 2017-10-29 12:42 | Observation (INO) | payer MEDICARE, SELFPAY ==
[2017-10-29] VITALS (8 sets, daily range): BP systolic 117–149; BP diastolic 60–81; PULSE 66–93; RESP 12–18; TEMP 36.6–36.7; O2SAT 93–98; BMI 74.2; BMI 73.0
--- NOTE | 2017-10-29 13:37 | EKG12_ITS ---
Test Reason : CP Blood Pressure : / mmHG Vent. Rate : 069 BPM Atrial Rate : 069 BPM P-R Int : 136 ms QRS Dur : 084 ms QT Int : 410 ms P-R-T Axes : 029 008 015 degrees QTc Int : 439 ms Normal sinus rhythm Minimal voltage criteria for LVH, may be normal variant Borderline ECG Confirmed by GEO SIMS, SINDI ([id number]), editorial clerk KO ROMERO ([id number]) on 10/31/2017 1:40:14 PM Referred By: BRENT Confirmed By:SINDI GUARDADO MD
[2017-10-29] MEDS: 0.9% Normal Saline 1,000 ML 150 ML IV (13:57)
[2017-10-29 14:04] LABS: Absolute Lymphocyte Count 1.12 X10^3/ul (0.83-4.51); Absolute Neutrophil Count 5.3 X10^3/uL (2.0-7.7); Basophil# 0.01 X10^3/uL; Basophil% 0.1 % (0-1); Eosinophil# 0.23 X10^3/uL; Eosinophils% 3.3 % (0-5); Hematocrit 38.3 % (37-47); Hemoglobin 12.2 g/dl (12.0-15.0); Lymphocyte # 1.12 X10^3/ul (4.0); Mean Corp Hgb Conc 31.9 g/gl (32-36); Mean Corpuscular Hgb 27.4 pg (27.0-32.0); Mean Corpuscular Volume 86.1 fL (81-99); Mean Platelet Vol. 11.2 fl (6.2-12.0); Monocyte# 0.35 X10^3/uL; Neutrophil # 5.28 X10^3/uL (2.7-7.7); Neutrophil % 75.5 % (47-70); Platelet Count 236 K/mm3 (150-450); RBC Distribution Width CV 13.5 % (11.6-14.6); RBC Distribution Width SD 42.5 fl (35.1-43.9); Red Blood Count 4.45 M/mm3 (4.2-5.4)
--- NOTE | 2017-10-29 14:06 | RAD_ITS ---
STUDY: X-RAY CHEST REASON FOR EXAM: Female, 57 years old. Sialitis overlying the right buttock. Fever and chills. TECHNIQUE: Single AP portable view of the chest. COMPARISON: Comparison is made with prior study dated October 21, 2017. FINDINGS: EKG electrode are seen. Scattered calcified granulomas. The lungs are clear. There is no demonstrated pleural abnormality. There is borderline cardiomegaly. Normal mediastinum and erich. Normal visualized pulmonary arteries. There is atherosclerotic tortuosity of the aortic arch and descending thoracic aorta. There are diffuse degenerative changes of the visualized thoracic spine. Normal visualized ribs, clavicles, and shoulders. There is no demonstrated abnormality of the visualized soft tissue structures of the upper abdomen. RAD/Chest 1 View (Portable) IMPRESSION: No acute abnormality is seen. Electronically Signed: Horace Maldonado MD at 14:50 EDT Tel [phone], Service support ,
[2017-10-29 14:16] LABS: Anion Gap 11 (5-15); BUN 13 mg/dL (7-18); BUN/Creat Ratio 18.9 RATIO (10-20); Calcium,Total 8.7 mg/dL (8.5-10.1); Chloride 103 mmol/L (98-107); Creatinine, Serum 0.69 mg/dL (0.55-1.02); EST Glomerular Filtration Rate 93 mL/min (>60); Est Glom Filt Rate - Afr Amer 113 mL/min (>60); Estimated Creatinine Clearance 67.88 ml/min; Glucose 167 mg/dL (74-106); Potassium 4.1 mmol/L (3.5-5.1); Sodium Level 144 mmol/L (136-145)
[2017-10-29 14:32] LABS: POSITIVE COUNT NO; POSITIVE DIFFERENTIAL NO; POSITIVE MORPHOLOGY NO
--- NOTE | 2017-10-29 15:10 | PCM.HP.STD ---
Problem List (1) Anxiety and depression Status: Chronic (2) Heart failure Status: Chronic Qualifiers: Heart failure type: unspecified Heart failure chronicity: chronic Qualified Code(s): I50.9 - Heart failure, unspecified (3) Diabetes mellitus, type II Status: Acute Qualifiers: Diabetes mellitus social work assistant insulin use: with social work assistant use Diabetes mellitus complication status: with unspecified complications Qualified Code(s): E11.8 - Type 2 diabetes mellitus with unspecified complications; Z79.4 - nursing home (current) use of insulin (4) Chronic back pain Status: Chronic Qualifiers: Back pain location: back pain in unspecified location Back pain laterality: unspecified Qualified Code(s): M54.9 - Dorsalgia, unspecified; G89.29 - Other chronic pain (5) JEREMÍAS (obstructive sleep apnea) Status: Chronic (6) Esophageal reflux Status: Chronic Qualifiers: Esophagitis presence: esophagitis presence not specified Qualified Code(s): K21.9 - Gastro-esophageal reflux disease without esophagitis (7) Morbid obesity Status: Chronic (8) Hypertension Status: Chronic Qualifiers: Hypertension type: essential hypertension Qualified Code(s): I10 - Essential (primary) hypertension (9) Chest pain Status: Acute Qualifiers: Chest pain type: unspecified Qualified Code(s): R07.9 - Chest pain, unspecified (10) Exertional dyspnea Status: Acute History of Present Illness Date of Admission: 10/29/17 Chief Complaint: Chest pain, ? R sided recurrent erythema/chills The patient is a 57 y/o F w/ PMHx: Chronic Back and BL LE Pain following w/ Dr. Pacheco, Diabetes mellitus type II, CHF Unclear Type, Anxiety and Depression, Morbid Obesity, JEREMÍAS, GERD, HTN, Diabetes mellitus type II, Hx Frequent Cellulitis w/ most recent presentation to [facility] 10/21/17-10/23/17 w/ treatment for acute sepsis secondary to acute recurrent R posterior thigh and R buttock cellulitis w/ ID recommendation for hibiclens weekly washes and continuation keflex 500 mg TID for an additional 5 days at discharge who now re-presents to the [facility] ED on 10/29/17 w/ onset of ? recurrent mild right-sided hip, thigh and buttock erythema starting this AM with associated chills sent to the ED for evaluation per her PCP office especially secondary to her recurrent cellulitic presentations but upon ED presentation also noted in addition intermittent L sided sharp, stabbing, 11/28, intermittent chest pain without radiation over the last 48 hours which she had not mentioned at her PCP office w/ dyspnea and concurrently noted exertional dyspnea, symptoms also worse with exertional attempts. She notes she is unable to lay flat well baseline, but seems worse. She also notes increased BL LE ankle edema but notes currently improved. Upon current evaluation patient denies any chest pain at this time. In the ED work-up included T 97.8, heart rate 93, BP 149/81, respiratory rate 18, 93% on room air, CBC unremarkable, remarkable for glucose 167, troponin less than 0.015, chest x-ray with no acute findings, EKG without acute findings. In the ED patient administered aspirin therapy 325 mg p.o. ?1 in addition to normal saline. Past Medical History Past Medical History (Chronic Problems): Chronic Problems Anxiety and depression (Chronic) Heart failure (Chronic) Chronic back pain (Chronic) History of pneumonia (Chronic) JEREMÍAS (obstructive sleep apnea) (Chronic) Lumbosacral neuritis (Chronic) Esophageal reflux (Chronic) Morbid obesity (Chronic) Hypertension (Chronic) Allergies vancomycin Allergy (Verified 10/29/17 12:44) Rash amlodipine Adverse Reaction (Verified 10/29/17 12:44) Unknown atenolol Adverse Reaction (Verified 10/29/17 12:44) Unknown bupropion HCl [From Wellbutrin] Adverse Reaction (Verified 10/29/17 12:44) Unknown fluoxetine HCl [From Prozac] Adverse Reaction (Verified 10/29/17 12:44) Unknown meloxicam [From Mobic] Adverse Reaction (Verified 10/29/17 12:44) Unknown metoprolol Adverse Reaction (Verified 10/29/17 12:44) Unknown pregabalin [From Lyrica] Adverse Reaction (Verified 10/29/17 12:44) Unknown quetiapine fumarate [From Seroquel] Adverse Reaction (Verified 10/29/17 12:44) Unknown quinapril HCl [From Accupril] Adverse Reaction (Verified 10/29/17 12:44) Unknown risperidone Adverse Reaction (Verified 10/29/17 12:44) Unknown rofecoxib [From Vioxx] Adverse Reaction (Verified 10/29/17 12:44) Unknown sitagliptin phosphate [From Januvia] Adverse Reaction (Verified 10/29/17 12:44) Unknown venlafaxine HCl [From Effexor] Adverse Reaction (Verified 10/29/17 12:44) Unknown Home Medications: Ambulatory Orders Medication Instructions Recorded Aspirin [Adult Low Dose Aspirin EC] 81 mg PO DAILY 12/02/14 Duloxetine HCl 60 mg PO DAILY 12/02/14 Linagliptin [Tradjenta] 5 mg PO DAILY 12/02/14 Potassium Chloride [K-Dur] 10 meq PO DAILY 12/02/14 Ranitidine [Zantac] 150 mg PO BID 12/02/14 Spironolactone [Aldactone] 25 mg PO DAILY 12/02/14 Baclofen 10 mg PO BID 08/01/17 Gabapentin [Neurontin] 300 mg PO BID 08/01/17 Primidone [Mysoline] 50 mg PO QHS 08/01/17 traZODone [Desyrel] 50 mg PO QHS 08/01/17 Hydrocodone/Acetaminophen [[place] 1 each PO BID PRN PRN 09/09/17 5-325 Tablet] Nitroglycerin [Nitrostat] 0.4 mg SL PRN PRN 09/09/17 Aripiprazole [Abilify] 10 mg PO QHS 10/21/17 Atorvastatin Calcium [Lipitor] 20 mg PO QHS 10/29/17 Furosemide [Lasix] 20 mg PO DAILY 10/29/17 Insulin Glargine,Hum.rec.anlog 30 unit SQ QHS 10/29/17 [Basaglar Kwikpen U-100] Nabumetone [Relafen] 500 mg PO BID 10/29/17 Surgical History: - - Cholecystectomy, hernia repair, cataract surgery, D&C. 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 Tobacco Use: Non-smoker Alcohol: None Drugs: None - *Family History Sibling History Items: - - Patient notes sibling with heart disease, coronary disease, diabetes, stroke. Maternal History Items: - - Patient notes a maternal family history of heart disease, diabetes, stroke. Paternal History Items: - - Patient notes a paternal family history of hypertension. Review of Systems Constitutional: Reports: Chills, Malaise, Weakness, Fatigue. Denies: Fever, Weight Change HEENT: Denies: Head Aches, Sinus Congestion, Sinus Drainage Cardiovascular: Reports: Chest Pain, Edema, Orthopnea. Denies: Palpitations Respiratory: Reports: Shortness of Breath, Shortness of breath at rest, Shortness of breath upon exertion. Denies: Cough, Sputum production Gastrointestinal: Denies: Abdominal Pain, Nausea, Vomiting Genitourinary: Denies: Dysuria Musculoskeletal: Reports: Back Pain. Denies: Joint Pain, Joint Tenderness Skin: Reports: Skin Changes. Denies: Rash, Wounds Neurological: Denies: Numbness, Tingling, Focal weakness Psychiatric: Reports: Anxiety, Depression. Denies: Homicidal Ideations, Suicidal Ideations Hematologic/ Lymphatic: Denies: Easy Bruising, Easy Bleeding VTE Information - Inpt Only VTE Present on Admission: No VTE Mechan Device Prophylaxis: SCD's VTE Pharm Prophylaxis ordered?: Yes Patient Problems: Active and Suspected Problems Chest pain (Acute) Exertional dyspnea (Acute) Subjective: Seated upright in ED bed, no current chest discomfort. Objective: Physical Examination: General: awake, alert, oriented x 3 and cooperative, seated upright in the ED bed in no apparent distress. Skin: normal color, turgor, no icterus, cyanosis and upon evaluation of right lower extremity as well as posterior buttock regions no evidence of erythema reoccurrence, nontender palpation, no increased warmth to palpation. HEENT: AT/NC, EOMI, PERRLA, MMM, no carotid bruits or JVD noted; however habitus with thickened neck makes examination difficult. Lungs: Breath sounds bilateral bases, moderate effort, no rales, ronchi or wheezing. Heart: Regular rate and rhythm; no gallop, rub audible. Abdomen: soft, mildly obese, NTTP, ND, normal BS, no HSM; her habitus makes examination very difficult. Extremities: no cyanosis, clubbing, no marked lower extremity edema, nonpitting. Neurological: patient awake, alert, oriented x 3; cognitive function intact; pupils equally reactive to light and accomodation; cranial nerves II-XII grossly normal, moving all 4 extremities, no focal deficits, strength related severely globally decreased secondary to habitus. Psychiatric: affect appears normal, no acute evidence of depressive or anxiety feelings. - Physical Exam Vital Signs Temp Pulse Resp BP Pulse Ox 97.8 F 93 18 149/81 H 93 10/29/17 12:43 10/29/17 12:43 10/29/17 12:43 10/29/17 12:43 10/29/17 12:43 Oxygen Delivery Method Room Air Weight: 393 lb 4.874 oz Body Mass Index (BMI) 74.2 Laboratory Tests Past 24 Hrs 10/29/17 10/29/17 10/29/17 13:45 13:45 13:45 WBC 7.0 RBC 4.45 Hgb 12.2 Hct 38.3 MCV 86.1 MCH 27.4 MCHC 31.9 L RDW 13.5 RDW Differential 42.5 Plt Count 236 MPV 11.2 Immature Gran % (Auto) 0.100 Neut % (Auto) 75.5 H Lymph % (Auto) 16.0 L Quay % (Auto) 5.0 Eos % (Auto) 3.3 Baso % (Auto) 0.1 Absolute Neuts (auto) 5.3 Absolute Lymphs (auto) 1.12 Total Counted Not Reportable Sodium 144 Potassium 4.1 Chloride 103 Carbon Dioxide 30.0 Anion Gap 11 BUN 13 Creatinine 0.69 Estim Creat Clear Calc 67.88 Est GFR (MDRD) Af Amer 113 Est GFR (MDRD) Non-Af 93 BUN/Creatinine Ratio 18.9 Glucose 167 H Calcium 8.7 Troponin I < 0.015 Assessment/Plan All Active Problems Chest pain (Acute) Exertional dyspnea (Acute) Cellulitis (Acute) Sepsis (Acute) Diabetes mellitus, type II (Acute) The patient is a 57 y/o F w/ PMHx: Chronic Back and BL LE Pain following w/ Dr. Pacheco, Diabetes mellitus type II, CHF Unclear Type, Anxiety and Depression, Morbid Obesity, JEREMÍAS, GERD, HTN, Diabetes mellitus type II, Hx Frequent Cellulitis w/ most recent presentation to [facility] 10/21/17-10/23/17 w/ treatment for acute sepsis secondary to acute recurrent R posterior thigh and R buttock cellulitis w/ ID recommendation for hibiclens weekly washes and continuation keflex 500 mg TID for an additional 5 days at discharge who now re-presents to the [facility] ED on 10/29/17 w/ onset of ? recurrent mild right-sided hip, thigh and buttock erythema starting this AM with associated chills sent to the ED for evaluation per her PCP office especially secondary to her recurrent cellulitic presentations but upon ED presentation also noted in addition intermittent L sided sharp, stabbing, 10/10, intermittent chest pain without radiation over the last 48 hours which she had not mentioned at her PCP office w/ dyspnea and concurrently noted exertional dyspnea, symptoms also worse with exertional attempts. (1) Chest Pain, Exertional Dyspnea: In the ED work-up included T 97.8, heart rate 93, BP 149/81, respiratory rate 18, 93% on room air, CBC unremarkable, remarkable for glucose 167, troponin less than 0.015, chest x-ray with no acute findings, EKG without acute findings. In the ED patient administered aspirin therapy 325 mg p.o. ?1 in addition to normal saline. Will admit to PCU, place on a monitored bed to assure no acute myocardial infarction with serial cardiac enzymes and EKGs. Patient is unable to perform exercise thus will proceed with AM nuclear stress testing. ASA, NG, morphine. FLP in AM. Mag pending. ECHO pending. (2) CHF Unclear Type: Noting BL LE increased edema, ? orthopnea. Appearance not marked, no pitting edema, CXR unremarkable. Maintain on home regimen aspirin, Lasix, spironolactone, statin, BB with allergy noted nor LIANG inhibitor. ECHO pending. SNUG liang wraps to BL LE. Daily weights. HOB, IS. (3) Recent R upper thigh and buttock cellulitis: Patient notes completing Keflex regimen the day prior. Current does not appear erythematous or concerning, afebrile upon presentation, will continue to follow, frequent position changes and if appropriate will add regimen with ID evaluation if needed but does not appear cellulitic at this time. (4) Diabetes mellitus type II: Hold oral home regimen, continue home insulin regimen, ADA diet, accu checks w/ ISS. (5) Morbid Obesity: Weight loss and lifestyle changes encouraged, nutrition consulted. (6) Diabetes mellitus type II: Hold oral home regimen, continue home insulin regimen, ADA diet, accu checks w/ ISS, HgbA1c 7.2% 10/21/2017 8.2%, nutrition consulted for education and teaching. (7) Hypertension: Continue home regimen including Lasix, spironolactone, PRN hydralazine. (8) Hyperlipidemia: Continue home statin regimen. AM FLP. (9) Anxiety and Depression: Continue home regimen of duloxetine, trazodone. (10) JEREMÍAS: BIPAP q HS. (11) GERD: Ranitidine. (12) DVT prophylaxis: SCD, Lovenox. Code Visit OBSV E&M: 79331 Initial observation care L3
[2017-10-29] MEDS: Aspirin 325 MG Tablet PO (15:15)
--- NOTE | 2017-10-29 15:18 | HP.PCM_ITS ---
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: with buttermilk drier operator use Diabetes mellitus complication status: with unspecified complications Qualified Code(s) : E11.8 - Type 2 diabetes mellitus with unspecified complications; Z79.4 - [facility] (current) use of insulin (4) Chronic back pain Status: Chronic Qualifiers: Back pain location: back pain in unspecified location Back pain laterality : unspecified Qualified Code(s): M54.9 - Dorsalgia, unspecified; G89.29 - Other chronic pain (5) JEREMÍAS (obstructive sleep apnea) Status: Chronic (6) Esophageal reflux Status: Chronic Qualifiers: Esophagitis presence: esophagitis presence not specified Qualified Code(s) : K21.9 - Gastro-esophageal reflux disease without esophagitis (7) Morbid obesity Status: Chronic (8) Hypertension Status: Chronic Qualifiers: Hypertension type: essential hypertension Qualified Code(s): I10 - Essential (primary) hypertension (9) Chest pain Status: Acute Qualifiers: Chest pain type: unspecified Qualified Code(s): R07.9 - Chest pain, unspecified (10) Exertional dyspnea Status: Acute History of Present Illness Date of Admission: 10/29/17 Chief Complaint: Chest pain, ? R sided recurrent erythema/chills The patient is a 57 y/o F w/ PMHx: Chronic Back and BL LE Pain following w/ Dr. Pacheco, Diabetes mellitus type II, CHF Unclear Type, Anxiety and Depression, Morbid Obesity, JEREMÍAS, GERD, HTN, Diabetes mellitus type II, Hx Frequent Cellulitis w/ most recent presentation to [facility] 10/21/17-10/23/17 w/ treatment for acute sepsis secondary to acute recurrent R posterior thigh and R buttock cellulitis w/ ID recommendation for hibiclens weekly washes and continuation keflex 500 mg TID for an additional 5 days at discharge who now re-presents to the [facility] ED on 10/29/17 w/ onset of ? recurrent mild right-sided hip, thigh and buttock erythema starting this AM with associated chills sent to the ED for evaluation per her PCP office especially secondary to her recurrent cellulitic presentations but upon ED presentation also noted in addition intermittent L sided sharp, stabbing, 11/28, intermittent chest pain without radiation over the last 48 hours which she had not mentioned at her PCP office w/ dyspnea and concurrently noted exertional dyspnea, symptoms also worse with exertional attempts. She notes she is unable to lay flat well baseline, but seems worse. She also notes increased BL LE ankle edema but notes currently improved. Upon current evaluation patient denies any chest pain at this time. In the ED work- up included T 97.8, heart rate 93, BP 149/81, respiratory rate 18, 93% on room air, CBC unremarkable, remarkable for glucose 167, troponin less than 0.015, chest x-ray with no acute findings, EKG without acute findings. In the ED patient administered aspirin therapy 325 mg p.o. ?1 in addition to normal saline. Past Medical History Past Medical History (Chronic Problems): Chronic Problems Anxiety and depression (Chronic) Heart failure (Chronic) Chronic back pain (Chronic) History of pneumonia (Chronic) JEREMÍAS (obstructive sleep apnea) (Chronic) Lumbosacral neuritis (Chronic) Esophageal reflux (Chronic) Morbid obesity (Chronic) Hypertension (Chronic) Allergies vancomycin Allergy (Verified 10/29/17 12:44) Rash amlodipine Adverse Reaction (Verified 10/29/17 12:44) Unknown atenolol Adverse Reaction (Verified 10/29/17 12:44) Unknown bupropion HCl [From Wellbutrin] Adverse Reaction (Verified 10/29/17 12:44) Unknown fluoxetine HCl [From Prozac] Adverse Reaction (Verified 10/29/17 12:44) Unknown meloxicam [From Mobic] Adverse Reaction (Verified 10/29/17 12:44) Unknown metoprolol Adverse Reaction (Verified 10/29/17 12:44) Unknown pregabalin [From Lyrica] Adverse Reaction (Verified 10/29/17 12:44) Unknown quetiapine fumarate [From Seroquel] Adverse Reaction (Verified 10/29/17 12:44) Unknown quinapril HCl [From Accupril] Adverse Reaction (Verified 10/29/17 12:44) Unknown risperidone Adverse Reaction (Verified 10/29/17 12:44) Unknown rofecoxib [From Vioxx] Adverse Reaction (Verified 10/29/17 12:44) Unknown sitagliptin phosphate [From Januvia] Adverse Reaction (Verified 10/29/17 12:44) Unknown venlafaxine HCl [From Effexor] Adverse Reaction (Verified 10/29/17 12:44) Unknown Home Medications: Ambulatory Orders Medication Instructions Recorded Aspirin [Adult Low Dose Aspirin EC] 81 mg PO DAILY 12/02/14 Duloxetine HCl 60 mg PO DAILY 12/02/14 Linagliptin [Tradjenta] 5 mg PO DAILY 12/02/14 Potassium Chloride [K-Dur] 10 meq PO DAILY 12/02/14 Ranitidine [Zantac] 150 mg PO BID 12/02/14 Spironolactone [Aldactone] 25 mg PO DAILY 12/02/14 Baclofen 10 mg PO BID 08/01/17 Gabapentin [Neurontin] 300 mg PO BID 08/01/17 Primidone [Mysoline] 50 mg PO QHS 08/01/17 traZODone [Desyrel] 50 mg PO QHS 08/01/17 Hydrocodone/Acetaminophen [[place] 1 each PO BID PRN PRN 09/09/17 5-325 Tablet] Nitroglycerin [Nitrostat] 0.4 mg SL PRN PRN 09/09/17 Aripiprazole [Abilify] 10 mg PO QHS 10/21/17 Atorvastatin Calcium [Lipitor] 20 mg PO QHS 10/29/17 Furosemide [Lasix] 20 mg PO DAILY 10/29/17 Insulin Glargine,Hum.rec.anlog 30 unit SQ QHS 10/29/17 [Basaglar Kwikpen U-100] Nabumetone [Relafen] 500 mg PO BID 10/29/17 Surgical History: - - Cholecystectomy, hernia repair, cataract surgery, D&C. 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 Tobacco Use: Non-smoker Alcohol: None Drugs: None - *Family History Sibling History Items: - - Patient notes sibling with heart disease, coronary disease, diabetes, stroke. Maternal History Items: - - Patient notes a maternal family history of heart disease, diabetes, stroke. Paternal History Items: - - Patient notes a paternal family history of hypertension. Review of Systems Constitutional: Reports: Chills, Malaise, Weakness, Fatigue. Denies: Fever, Weight Change HEENT: Denies: Head Aches, Sinus Congestion, Sinus Drainage Cardiovascular: Reports: Chest Pain, Edema, Orthopnea. Denies: Palpitations Respiratory: Reports: Shortness of Breath, Shortness of breath at rest, Shortness of breath upon exertion. Denies: Cough, Sputum production Gastrointestinal: Denies: Abdominal Pain, Nausea, Vomiting Genitourinary: Denies: Dysuria Musculoskeletal: Reports: Back Pain. Denies: Joint Pain, Joint Tenderness Skin: Reports: Skin Changes. Denies: Rash, Wounds Neurological: Denies: Numbness, Tingling, Focal weakness Psychiatric: Reports: Anxiety, Depression. Denies: Homicidal Ideations, Suicidal Ideations Hematologic/ Lymphatic: Denies: Easy Bruising, Easy Bleeding VTE Information - Inpt Only VTE Present on Admission: No VTE Mechan Device Prophylaxis: SCD's VTE Pharm Prophylaxis ordered?: Yes Patient Problems: Active and Suspected Problems Chest pain (Acute) Exertional dyspnea (Acute) Subjective: Seated upright in ED bed, no current chest discomfort. Objective: Physical Examination: General: awake, alert, oriented x 3 and cooperative, seated upright in the ED bed in no apparent distress. Skin: normal color, turgor, no icterus, cyanosis and upon evaluation of right lower extremity as well as posterior buttock regions no evidence of erythema reoccurrence, nontender palpation, no increased warmth to palpation. HEENT: AT/NC, EOMI, PERRLA, MMM, no carotid bruits or JVD noted; however habitus with thickened neck makes examination difficult. Lungs: Breath sounds bilateral bases, moderate effort, no rales, ronchi or wheezing. Heart: Regular rate and rhythm; no gallop, rub audible. Abdomen: soft, mildly obese, NTTP, ND, normal BS, no HSM; her habitus makes examination very difficult. Extremities: no cyanosis, clubbing, no marked lower extremity edema, nonpitting. Neurological: patient awake, alert, oriented x 3; cognitive function intact; pupils equally reactive to light and accomodation; cranial nerves II-XII grossly normal, moving all 4 extremities, no focal deficits, strength related severely globally decreased secondary to habitus. Psychiatric: affect appears normal, no acute evidence of depressive or anxiety feelings. - Physical Exam Vital Signs Temp Pulse Resp BP Pulse Ox 97.8 F 93 18 149/81 H 93 10/29/17 12:43 10/29/17 12:43 10/29/17 12:43 10/29/17 12:43 10/29/17 12:43 Oxygen Delivery Method Room Air Weight: 393 lb 4.874 oz Body Mass Index (BMI) 74.2 Laboratory Tests Past 24 Hrs 10/29/17 10/29/17 10/29/17 13:45 13:45 13:45 WBC 7.0 RBC 4.45 Hgb 12.2 Hct 38.3 MCV 86.1 MCH 27.4 MCHC 31.9 L RDW 13.5 RDW Differential 42.5 Plt Count 236 MPV 11.2 Immature Gran % (Auto) 0.100 Neut % (Auto) 75.5 H Lymph % (Auto) 16.0 L Barnes % (Auto) 5.0 Eos % (Auto) 3.3 Baso % (Auto) 0.1 Absolute Neuts (auto) 5.3 Absolute Lymphs (auto) 1.12 Total Counted Not Reportable Sodium 144 Potassium 4.1 Chloride 103 Carbon Dioxide 30.0 Anion Gap 11 BUN 13 Creatinine 0.69 Estim Creat Clear Calc 67.88 Est GFR (MDRD) Af Amer 113 Est GFR (MDRD) Non-Af 93 BUN/Creatinine Ratio 18.9 Glucose 167 H Calcium 8.7 Troponin I < 0.015 Assessment/Plan All Active Problems Chest pain (Acute) Exertional dyspnea (Acute) Cellulitis (Acute) Sepsis (Acute) Diabetes mellitus, type II (Acute) The patient is a 57 y/o F w/ PMHx: Chronic Back and BL LE Pain following w/ Dr. Pacheco, Diabetes mellitus type II, CHF Unclear Type, Anxiety and Depression, Morbid Obesity, JEREMÍAS, GERD, HTN, Diabetes mellitus type II, Hx Frequent Cellulitis w/ most recent presentation to [facility] 10/21/17-10/23/17 w/ treatment for acute sepsis secondary to acute recurrent R posterior thigh and R buttock cellulitis w/ ID recommendation for hibiclens weekly washes and continuation keflex 500 mg TID for an additional 5 days at discharge who now re-presents to the [facility] ED on 10/29/17 w/ onset of ? recurrent mild right-sided hip, thigh and buttock erythema starting this AM with associated chills sent to the ED for evaluation per her PCP office especially secondary to her recurrent cellulitic presentations but upon ED presentation also noted in addition intermittent L sided sharp, stabbing, 10/10, intermittent chest pain without radiation over the last 48 hours which she had not mentioned at her PCP office w/ dyspnea and concurrently noted exertional dyspnea, symptoms also worse with exertional attempts. (1) Chest Pain, Exertional Dyspnea: In the ED work-up included T 97.8, heart rate 93, BP 149/81, respiratory rate 18, 93% on room air, CBC unremarkable, remarkable for glucose 167, troponin less than 0.015, chest x-ray with no acute findings, EKG without acute findings. In the ED patient administered aspirin therapy 325 mg p.o. ?1 in addition to normal saline. Will admit to PCU, place on a monitored bed to assure no acute myocardial infarction with serial cardiac enzymes and EKGs. Patient is unable to perform exercise thus will proceed with AM nuclear stress testing. ASA, NG, morphine. FLP in AM. Mag pending. ECHO pending. (2) CHF Unclear Type: Noting BL LE increased edema, ? orthopnea. Appearance not marked, no pitting edema, CXR unremarkable. Maintain on home regimen aspirin, Lasix, spironolactone, statin, BB with allergy noted nor LIANG inhibitor. ECHO pending. SNUG liang wraps to BL LE. Daily weights. HOB, IS. (3) Recent R upper thigh and buttock cellulitis: Patient notes completing Keflex regimen the day prior. Current does not appear erythematous or concerning , afebrile upon presentation, will continue to follow, frequent position changes and if appropriate will add regimen with ID evaluation if needed but does not appear cellulitic at this time. (4) Diabetes mellitus type II: Hold oral home regimen, continue home insulin regimen, ADA diet, accu checks w/ ISS. (5) Morbid Obesity: Weight loss and lifestyle changes encouraged, nutrition consulted. (6) Diabetes mellitus type II: Hold oral home regimen, continue home insulin regimen, ADA diet, accu checks w/ ISS, HgbA1c 7.2% 10/21/2017 8.2%, nutrition consulted for education and teaching. (7) Hypertension: Continue home regimen including Lasix, spironolactone, PRN hydralazine. (8) Hyperlipidemia: Continue home statin regimen. AM FLP. (9) Anxiety and Depression: Continue home regimen of duloxetine, trazodone. (10) JEREMÍAS: BIPAP q HS. (11) GERD: Ranitidine. (12) DVT prophylaxis: SCD, Lovenox. Code Visit OBSV E&M: 51339 Initial observation care L3
--- NOTE | 2017-10-29 15:28 | NURSING ---
DR MELO IN ER
--- NOTE | 2017-10-29 15:28 | NURSING ---
PCU CP, RECENT RLE, BUTTOCK CELLULITIS WHITE
--- NOTE | 2017-10-29 15:41 | NURSING ---
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
--- NOTE | 2017-10-29 15:49 | ED.DCSUM_ITS ---
- ER Visit Summary Date of Service: 10/29/17 Chief Complaint: [chest pain, cellulitis] History of Present Illness: The patient is a 57 F [that directed to the emergency department by her nurse practitioner due to concern for recurrent cellulitis. She was recently treated as an inpatient for cellulitis and then as an outpatient finished a course of Keflex. She describes the cellulitis on her posterior thighs and buttocks regions. She also states yesterday she started having left-sided chest pain that at times radiates to her left arm. No other associated cardiopulmonary symptoms or dyspnea. She overall appears well and in no acute distress. She states she is pain-free currently. She has cardiac risk factors including hypertension, diabetes, and obesity. No known coronary disease. She has no other complaints. No DVT or PE history or risk factors. She denies any neurological symptoms or complaints.] Physical Examination: [General: The patient appears well and in no apparent distress. Patient is resting comfortably on cart. Skin: Warm, dry, no pallor noted. No rash. Excoriated and irritated type skin to the bilateral posterior thighs and lower buttocks regions, no definite cellulitis, abscess, or infection. Head: Normocephalic, atraumatic Neck: Supple, nontender. Eye: PERRLA, EOMI ENT: Moist mucus membranes, pharynx within normal limits. Cardiovascular: Regular Rate and Rhythm, no gallups or rubs Respiratory: Patient is in no distress, no accessory muscle use, lungs are clear to auscultation, no wheezing, rales or rhonchi Musculoskeletal: normal ROM, no deformity, no tenderness, no swelling. 2+ radial and DP pulses symmetric. GI: No tenderness to palpation, no masses appreciated. No rebound, guarding, or rigidity noted. Neurological: A&O, normal strength and sensation. Psychiatric: Cooperative] Test Results: [EKG shows a sinus rhythm with a rate of 64, no acute ischemic changes or arrhythmia, overall unchanged from prior EKG. CBC, BMP, and troponin within normal limits. Chest x-ray shows no acute process.] Emergency Department Course and Treatment: [Patient remained pain-free. She was given aspirin. On re-evaluation at 1505 she is again pain-free and her vitals remained stable. She has a overall Heart Score of 4. I feel she requires admission for further evaluation of this chest pain. Patient was discussed with the hospitalist, Dr. Barron, who is agreeable with admission. Patient admitted in stable condition.] Treatment Plan: [see above] Disposition: [Admission, stable condition] Impression: [Chest Pain, nonspecific] This note was generated with [employer] dictation software. It may contain incorrect words, spelling, and punctuation that were not noted in review of the chart prior to signing ED Disposition - Plan for ED Patient: Chief Complaint: Cellulitis
--- NOTE | 2017-10-29 16:13 | EKG12_ITS ---
Test Reason : CP REPEAT Blood Pressure : / mmHG Vent. Rate : 070 BPM Atrial Rate : 070 BPM P-R Int : 140 ms QRS Dur : 082 ms QT Int : 416 ms P-R-T Axes : 049 018 030 degrees QTc Int : 449 ms Normal sinus rhythm Normal ECG When compared with ECG of 21-OCT-2017 04:42, No significant change was found Confirmed by GEO SIMS, SINDI ([id number]), index editor KO ROMERO ([id number]) on 10/31/2017 1:57:11 PM Referred By: KAMERON Confirmed By:SINDI GUARDADO MD
--- NOTE | 2017-10-29 16:13 | ECHOCS_ITS ---
Version 2 Reason For Study: CHF Procedure This was a 2D Doppler, Color Flow transthoracic echocardiogram. The study was technically difficult. Exam performed in department. Left Ventricle Normal LV size. Left ventricular systolic function is normal. The estimated ejection fraction is 55 %. Normal diastology for age. No regional wall motion abnormalities noted. Right Ventricle Normal RV size. Normal systolic function. Atria The left atrium is mildly enlarged. Normal right atrium. Mitral Valve Normal mitral valve. Tricuspid Valve Normal tricuspid valve. Mild (1+) tricuspid valve insufficiency. Pulmonary artery systolic pressure is 39 mmHg. Aortic Valve The aortic valve is not well visualized. Peak aortic valve gradient 22 mmHg. Pulmonic Valve The pulmonic valve is not well visualized. Great Vessels Normal aortic root. The pulmonary artery is normal size. Normal inferior vena cava. Pericardium/Pleural No pericardial effusion. Medication Diluted definity 4ml given slow IV push to enhance endocardial definition. MMode/2D Measurements & Calculations LVIDd: 5.1 cm IVSd: 1.3 cm Ao root diam: 2.7 cm LVIDs: 3.3 cm LVPWd: 1.2 cm LA dimension: 3.9 cm RVDd: 4.3 cm FS: 35.0 % LAV(MOD-bp): 65.1 ml LVAd ap4: 33.1 cm2 SV(MOD-sp4): 78.7 ml LAV(MOD-bp) Indexed: 25.9 ml/m2 EDV(MOD-sp4): 121.5 ml LAV(MOD-sp2): 57.4 ml EDV(sp4-el): 125.7 ml LAV(MOD-sp4): 61.6 ml LVAs ap4: 17.3 cm2 ESV(MOD-sp4): 42.8 ml ESV(sp4-el): 44.6 ml EF(MOD-sp4): 64.8 % EF(sp4-el): 64.5 % SV(sp4-el): 81.1 ml LA A4 area: 22.3 cm2 RA A4 area: 17.2 cm2 Time Measurements MV dec time: 0.20 sec Doppler Measurements & Calculations MV E max beau: 123.8 cm/sec Lat Peak E' Beau: 13.4 cm/sec Med Peak E' Beau: 11.0 cm/sec MV A max beau: 101.8 cm/sec E/E' lat: 9.3 E/E' med: 11.3 MV E/A: 1.2 Ao V2 max: 235.0 cm/sec LV V1 max: 157.0 cm/sec PA V2 max: 205.8 cm/sec Ao max P.1 mmHg LV V1 max P.9 mmHg TR max beau: 301.7 cm/sec TR max P.4 mmHg Interpretation Summary Normal LV size. Left ventricular systolic function is normal. The estimated ejection fraction is 55 %. Normal diastology for age. Pulmonary artery systolic pressure is 39 mmHg. The study was technically difficult. Contrast injection was performed. Compared to prior study, there is no significant change. Ordering Physician: Gudelia Barron Referring Physician: PIEDAD CERAN Performed By: Eden Morris RDCS
[2017-10-29] MEDS: HYDROcodone Bitartrate/Apap 5/325 Tablet PO (16:50)
[2017-10-29 17:01] LABS: Bedside Glucose 113 mg/dL (70-110)
[2017-10-29 17:03] LABS: Magnesium 2.2 mg/dL (1.6-2.6)
[2017-10-29] MEDS: Etodolac 200 MG Capsule PO (18:08)
[2017-10-29] MEDS: Gabapentin 300 MG Capsule PO (18:08)
[2017-10-29] MEDS: Acetaminophen 325 MG Tablet 650 MG PO (19:48)
[2017-10-29] MEDS: 0.9% NaCl Peripheral Flush Adult/Peds IV (19:49)
[2017-10-29] MEDS: traZODone 50 MG Tablet PO (22:20)
[2017-10-29] MEDS: ARIPiprazole 10 MG Tablet PO (22:20)
[2017-10-29] MEDS: Baclofen 10 MG Tablet PO (22:21)
[2017-10-29] MEDS: Enoxaparin 40 MG/0.4 ML Syringe SC (22:21)
[2017-10-29] MEDS: Famotidine 20 MG Tablet PO (22:21)
[2017-10-29] MEDS: Atorvastatin Calcium 20 MG Tablet PO (22:21)
[2017-10-29] MEDS: Primidone 50 MG Tablet PO (22:22)
[2017-10-29 22:56] LABS: Bedside Glucose 131 mg/dL (70-110)
[2017-10-30] VITALS (9 sets, daily range): BP systolic 130–155; BP diastolic 66–79; PULSE 60–83; RESP 12–18; TEMP 36.4–36.7; O2SAT 95–98
[2017-10-30] MEDS: HYDROcodone Bitartrate/Apap 5/325 Tablet PO (00:59)
[2017-10-30] MEDS: Acetaminophen 325 MG Tablet 650 MG PO (04:15)
[2017-10-30] MEDS: Aspirin E.C. 81 MG Tablet PO (05:42)
--- NOTE | 2017-10-30 05:55 | EKG12_ITS ---
Test Reason : AM EKG Blood Pressure : / mmHG Vent. Rate : 066 BPM Atrial Rate : 066 BPM P-R Int : 144 ms QRS Dur : 086 ms QT Int : 414 ms P-R-T Axes : 044 015 025 degrees QTc Int : 434 ms Normal sinus rhythm Normal ECG When compared with ECG of 29-OCT-2017 16:41, MANUAL COMPARISON REQUIRED, DATA IS UNCONFIRMED Confirmed by GEO SIMS, SINDI ([id number]), rewrite editor KO ROMERO ([id number]) on 10/31/2017 1:54:38 PM Referred By: KAMERON Confirmed By:SINDI GUARDADO MD
[2017-10-30 06:40] LABS: International Normalized Ratio 1.1; Partial Thromboplast Time 32.3 Seconds (24.1-36.2); Prothrombin Time (Protime)PT. 13.9 SECONDS (11.7-14.9)
[2017-10-30 06:42] LABS: Hematocrit 39.4 % (37-47); Hemoglobin 12.8 g/dl (12.0-15.0); Mean Corp Hgb Conc 32.5 g/gl (32-36); Mean Corpuscular Hgb 27.9 pg (27.0-32.0); Mean Corpuscular Volume 85.8 fL (81-99); Mean Platelet Vol. 11.3 fl (6.2-12.0); Platelet Count 247 K/mm3 (150-450); RBC Distribution Width CV 13.6 % (11.6-14.6); RBC Distribution Width SD 41.9 fl (35.1-43.9); Red Blood Count 4.59 M/mm3 (4.2-5.4); White Blood Count 5.7 K/mm3 (4.4-11.0)
[2017-10-30 06:49] LABS: Anion Gap 9 (5-15); BUN 11 mg/dL (7-18); BUN/Creat Ratio 18.6 RATIO (10-20); Chloride 105 mmol/L (98-107); Creatinine, Serum 0.59 mg/dL (0.55-1.02); EST Glomerular Filtration Rate 111 mL/min (>60); Est Glom Filt Rate - Afr Amer 134 mL/min (>60); Estimated Creatinine Clearance 79.39 ml/min; Glucose 113 mg/dL (74-106); Potassium 3.9 mmol/L (3.5-5.1); Sodium Level 143 mmol/L (136-145)
[2017-10-30 06:52] LABS: Scan Indicated on CBC? Y/N NO
[2017-10-30 07:05] LABS: Bedside Glucose 122 mg/dL (70-110)
[2017-10-30] MEDS: Morphine 2 MG/ML Syringe IV (08:18)
[2017-10-30] MEDS: Etodolac 200 MG Capsule PO (11:30)
[2017-10-30] MEDS: Gabapentin 300 MG Capsule PO (11:31)
[2017-10-30] MEDS: Spironolactone 25 MG Tablet PO (11:31)
[2017-10-30] MEDS: DULoxetine Hcl 60 MG Capsule PO (11:31)
[2017-10-30] MEDS: Famotidine 20 MG Tablet PO (11:32)
[2017-10-30] MEDS: Furosemide 20 MG Tablet PO (11:32)
[2017-10-30] MEDS: Baclofen 10 MG Tablet PO (11:32)
[2017-10-30 13:10] LABS: Bedside Glucose 102 mg/dL (70-110)
--- NOTE | 2017-10-30 14:38 | STRESSREP ---
Stress Test Report Pharmacologic myocardial perfusion stress test. 57-year-old lady with a history of hypertension and chest pain. Stress protocol: Resting EKG demonstrates normal sinus rhythm with a rate of 64 bpm resting blood pressure is 112/78 mmHg. 0.4 mg of regadenoson was infused per usual protocol followed by rapid intravenous saline flush injection continuous EKG monitoring was performed. The patient maintained sinus rhythm throughout the recording. At rest there were no ST or T-wave changes noted suggest abnormal flow reserve. The maximum heart rate attained was 92 bpm which was 56% of maximum predicted heart rate. The maximum workload was 1 metabolic equivalent. Myocardial perfusion protocol. 15.1 mCi of technetium 99m sestamibi was injected at rest. 0.4 mg regadenoson was infused per usual protocol peak infusion 44.8 mCi of technetium 99m sestamibi was injected stress images were obtained stress and rest images were reconstructed and compared in the short axis vertical long horizontal long axis. Gated images were also obtained next Perfusion SPECT analysis: Review of the stress images demonstrate normal uptake of tracer noted in the septum anterior wall and lateral wall. The inferior wall demonstrates reduction of perfusion on the stress and resting images to a similar extent. The above is highly suggestive of diaphragmatic and GI attenuation artifact. No obvious areas of ischemia are noted. Gated SPECT analysis: The gated ejection fraction is noted to be 61% with normal wall thickening. Conclusion: Probably normal pharmacologic myocardial perfusion stress test. No obvious ischemia noted.
--- NOTE | 2017-10-30 14:50 | PCM.DC ---
- Discharge Diagnoses Current Active Problems: Current Active and Chronic Problems Chest pain (Acute) Exertional dyspnea (Acute) You will use the following diet at home:: Cardiac Your food should be the consistency of: Regular Discharge Activity: Return to Normal Activity Call your doctor if you observe: Chest pain, Increased palpitations (irregular heartbeat) Allergies/Adverse Reactions: Allergies vancomycin Allergy (Verified 10/29/17 12:44) Rash amlodipine Adverse Reaction (Verified 10/29/17 12:44) Unknown atenolol Adverse Reaction (Verified 10/29/17 12:44) Unknown bupropion HCl [From Wellbutrin] Adverse Reaction (Verified 10/29/17 12:44) Unknown fluoxetine HCl [From Prozac] Adverse Reaction (Verified 10/29/17 12:44) Unknown meloxicam [From Mobic] Adverse Reaction (Verified 10/29/17 12:44) Unknown metoprolol Adverse Reaction (Verified 10/29/17 12:44) Unknown pregabalin [From Lyrica] Adverse Reaction (Verified 10/29/17 12:44) Unknown quetiapine fumarate [From Seroquel] Adverse Reaction (Verified 10/29/17 12:44) Unknown quinapril HCl [From Accupril] Adverse Reaction (Verified 10/29/17 12:44) Unknown risperidone Adverse Reaction (Verified 10/29/17 12:44) Unknown rofecoxib [From Vioxx] Adverse Reaction (Verified 10/29/17 12:44) Unknown sitagliptin phosphate [From Januvia] Adverse Reaction (Verified 10/29/17 12:44) Unknown venlafaxine HCl [From Effexor] Adverse Reaction (Verified 10/29/17 12:44) Unknown Medications to take at Discharge Aspirin [Adult Low Dose Aspirin EC] 81 mg PO DAILY 12/02/14 Duloxetine HCl 60 mg PO DAILY 12/02/14 Linagliptin [Tradjenta] 5 mg PO DAILY 12/02/14 Potassium Chloride [K-Dur] 10 meq PO DAILY 12/02/14 Ranitidine [Zantac] 150 mg PO BID 12/02/14 Spironolactone [Aldactone] 25 mg PO DAILY 12/02/14 Baclofen 10 mg PO BID 08/01/17 Gabapentin [Neurontin] 300 mg PO BID 08/01/17 Primidone [Mysoline] 50 mg PO QHS 08/01/17 traZODone [Desyrel] 50 mg PO QHS 08/01/17 Hydrocodone/Acetaminophen [[place] 5-325 Tablet] 1 each PO BID PRN PRN 09/09/17 Nitroglycerin [Nitrostat] 0.4 mg SL PRN PRN 09/09/17 Aripiprazole [Abilify] 10 mg PO QHS 10/21/17 Atorvastatin Calcium [Lipitor] 20 mg PO QHS 10/29/17 Furosemide [Lasix] 20 mg PO DAILY 10/29/17 Insulin Glargine,Hum.rec.anlog [Basaglar Kwikpen U-100] 30 unit SQ QHS 10/29/17 Nabumetone [Relafen] 500 mg PO BID 10/29/17 Nitroglycerin [Nitrostat] 0.4 mg SUBLINGUAL Q5M PRN #30 tab 10/30/17 The following prescriptions were given: Nitroglycerin [Nitrostat] 0.4 mg SUBLINGUAL Q5M PRN #30 tab PRN Reason: Chest Pain Primary Care Physician: Vincent Negro MD [Primary Care Provider] - Please follow up with your Primary Care Physician in: one week Test Results: Test results from this visit will be discussed in further detail at your follow-up appointment, if applicable. Proposed Discharge Date: 10/30/17
--- NOTE | 2017-10-30 14:52 | PCM.DC.SUM ---
Discharge Date and Diagnosis - Problem List Patient Problems: Active and Suspected Problems Chest pain (Acute) Exertional dyspnea (Acute) Date of Admission: 10/29/17 Date of Discharge: 10/30/17 - Primary Discharge Diagnosis Active and Suspected Problems Chest pain (Acute) Exertional dyspnea (Acute) - Secondary Discharge Diagnosis Chronic Problems Anxiety and depression (Chronic) Heart failure (Chronic) Chronic back pain (Chronic) History of pneumonia (Chronic) JEREMÍAS (obstructive sleep apnea) (Chronic) Lumbosacral neuritis (Chronic) Esophageal reflux (Chronic) Morbid obesity (Chronic) Hypertension (Chronic) Hospital Course and Treatment Imaging Results: 10/30/17 05:55 Nuclear Stress Test - Chemical [NM] AM (NON MEDS) Laboratory Tests 10/29/17 10/29/17 10/29/17 13:45 13:45 13:45 WBC 7.0 RBC 4.45 Hgb 12.2 Hct 38.3 MCV 86.1 MCH 27.4 MCHC 31.9 L RDW 13.5 RDW Differential 42.5 Plt Count 236 MPV 11.2 Immature Gran % (Auto) 0.100 Neut % (Auto) 75.5 H Lymph % (Auto) 16.0 L [place] % (Auto) 5.0 Eos % (Auto) 3.3 Baso % (Auto) 0.1 Absolute Neuts (auto) 5.3 Absolute Lymphs (auto) 1.12 Total Counted Not Reportable PT INR APTT Sodium 144 Potassium 4.1 Chloride 103 Carbon Dioxide 30.0 Anion Gap 11 BUN 13 Creatinine 0.69 Estim Creat Clear Calc 67.88 Est GFR (MDRD) Af Amer 113 Est GFR (MDRD) Non-Af 93 BUN/Creatinine Ratio 18.9 Glucose 167 H Calcium 8.7 Magnesium Troponin I < 0.015 POC Glucose 10/29/17 10/29/17 10/29/17 13:45 16:46 17:12 WBC RBC Hgb Hct MCV MCH MCHC RDW RDW Differential Plt Count MPV Immature Gran % (Auto) Neut % (Auto) Lymph % (Auto) [place] % (Auto) Eos % (Auto) Baso % (Auto) Absolute Neuts (auto) Absolute Lymphs (auto) Total Counted PT INR APTT Sodium Potassium Chloride Carbon Dioxide Anion Gap BUN Creatinine Estim Creat Clear Calc Est GFR (MDRD) Af Amer Est GFR (MDRD) Non-Af BUN/Creatinine Ratio Glucose Calcium Magnesium 2.2 Troponin I < 0.015 POC Glucose 113 H 10/29/17 10/29/17 10/30/17 19:44 22:16 06:15 WBC 5.7 RBC 4.59 Hgb 12.8 Hct 39.4 MCV 85.8 MCH 27.9 MCHC 32.5 RDW 13.6 RDW Differential 41.9 Plt Count 247 MPV 11.3 Immature Gran % (Auto) Neut % (Auto) Lymph % (Auto) [place] % (Auto) Eos % (Auto) Baso % (Auto) Absolute Neuts (auto) Absolute Lymphs (auto) Total Counted PT INR APTT Sodium Potassium Chloride Carbon Dioxide Anion Gap BUN Creatinine Estim Creat Clear Calc Est GFR (MDRD) Af Amer Est GFR (MDRD) Non-Af BUN/Creatinine Ratio Glucose Calcium Magnesium Troponin I < 0.015 POC Glucose 131 H 10/30/17 10/30/17 10/30/17 06:15 06:15 06:45 WBC RBC Hgb Hct MCV MCH MCHC RDW RDW Differential Plt Count MPV Immature Gran % (Auto) Neut % (Auto) Lymph % (Auto) [place] % (Auto) Eos % (Auto) Baso % (Auto) Absolute Neuts (auto) Absolute Lymphs (auto) Total Counted PT 13.9 INR 1.1 APTT 32.3 Sodium 143 Potassium 3.9 Chloride 105 Carbon Dioxide 29.0 Anion Gap 9 BUN 11 Creatinine 0.59 Estim Creat Clear Calc 79.39 Est GFR (MDRD) Af Amer 134 Est GFR (MDRD) Non-Af 111 BUN/Creatinine Ratio 18.6 Glucose 113 H Calcium 9.0 Magnesium Troponin I POC Glucose 122 H 10/30/17 11:28 WBC RBC Hgb Hct MCV MCH MCHC RDW RDW Differential Plt Count MPV Immature Gran % (Auto) Neut % (Auto) Lymph % (Auto) [place] % (Auto) Eos % (Auto) Baso % (Auto) Absolute Neuts (auto) Absolute Lymphs (auto) Total Counted PT INR APTT Sodium Potassium Chloride Carbon Dioxide Anion Gap BUN Creatinine Estim Creat Clear Calc Est GFR (MDRD) Af Amer Est GFR (MDRD) Non-Af BUN/Creatinine Ratio Glucose Calcium Magnesium Troponin I POC Glucose 102 Diagnostic Data Chest X-Ray 10/29/17 14:06 IMPRESSION: No acute abnormality is seen. Electronically Signed: Horace Maldonado MD at 14:50 EDT Tel [phone], Service support , Operations: None Procedures: Stress test Summary of Care Provided: The patient is a 57 year old F with an extensive past medical history of chronic back and lower extremity pain, diabetes mellitus, anxiety and depression, JEREMÍAS, GERD, hypertension and heart failure with unknown ejection fraction. She was admitted via the ED on 10/29/2017 with complaint of chest pain alvarez-white sided recurrent erythema and chills. Initial troponin was negative and a repeat was also negative. Chest x-ray was also negative and EKG showed no acute ST changes. She was given aspirin in the ED and admitted to be managed for atypical chest pain. She had a stress test on 10/30/2017 which showed gated ejection fraction to be about 61% with normal wall thickening and probably normal myocardial perfusion stress test with no obvious ischemia noted. Patient remained stable and was discharged home on 10/30/2017. She was given a prescription for sublingual nitroglycerin as needed for chest pain. She is follow-up with her primary care doctor in 1 week. Patient seen and examined prior to discharge. She had no complaints and chest pain had resolved and actually had not recurred since she was admitted. She denied any fever or chills, any shortness of breath, any palpitations, any abdominal pain, any diarrhea vomiting. 12 point review of systems was otherwise negative. Labs and vitals are reviewed. On examination: Vital Signs Height 5 ft 1 in Weight: 386 lb 0.47 oz Weight in Pounds 386.0 lbs Pulse Ox 97 Temperature 97.8 F Pulse Rate 83 Respiratory Rate 18 Blood Pressure 155/79 Blood Pressure Position Sitting []Physical Examination: General: awake, alert, oriented x 3 and cooperative, Skin: normal color, turgor, no icterus, cyanosis and no erythema noted in buttock or RLE area. HEENT: AT/NC, EOMI, PERRLA, MMM, no carotid bruits or JVD noted; Lungs: Breath sounds bilateral bases, moderate effort, no rales, ronchi or wheezing. Heart: Regular rate and rhythm; no gallop, rub audible. Abdomen: soft, mildly obese, not tender to palpation, no organomegaly. abdomen very obese Extremities: no cyanosis, clubbing, no marked lower extremity edema, nonpitting. Neurological: patient awake, alert, oriented x 3; cognitive function intact; pupils equally reactive to light and accomodation; cranial nerves II-XII grossly normal, moving all 4 extremities, no focal deficits, Psychiatric: affect appears normal, no acute evidence of depressive or anxiety feelings. Plan as stated above. Discharge Diet: 2000 mg Sodium Diet Discharge Activity: Return to Normal Activity Weight Bearing Status: Weight bearing as tolerated Call your doctor if you observe: Chest pain, Increased palpitations (irregular heartbeat) Home Medications: Medications to take at Discharge Aspirin [Adult Low Dose Aspirin EC] 81 mg PO DAILY 12/02/14 Duloxetine HCl 60 mg PO DAILY 12/02/14 Linagliptin [Tradjenta] 5 mg PO DAILY 12/02/14 Potassium Chloride [K-Dur] 10 meq PO DAILY 12/02/14 Ranitidine [Zantac] 150 mg PO BID 12/02/14 Spironolactone [Aldactone] 25 mg PO DAILY 12/02/14 Baclofen 10 mg PO BID 08/01/17 Gabapentin [Neurontin] 300 mg PO BID 08/01/17 Primidone [Mysoline] 50 mg PO QHS 08/01/17 traZODone [Desyrel] 50 mg PO QHS 08/01/17 Hydrocodone/Acetaminophen [[place] 5-325 Tablet] 1 each PO BID PRN PRN 09/09/17 Nitroglycerin [Nitrostat] 0.4 mg SL PRN PRN 09/09/17 Aripiprazole [Abilify] 10 mg PO QHS 10/21/17 Atorvastatin Calcium [Lipitor] 20 mg PO QHS 10/29/17 Furosemide [Lasix] 20 mg PO DAILY 10/29/17 Insulin Glargine,Hum.rec.anlog [Basaglar Kwikpen U-100] 30 unit SQ QHS 10/29/17 Nabumetone [Relafen] 500 mg PO BID 10/29/17 Nitroglycerin [Nitrostat] 0.4 mg SUBLINGUAL Q5M PRN #30 tab 10/30/17 Following Prescrptions Were Given to Patient: Nitroglycerin [Nitrostat] 0.4 mg SUBLINGUAL Q5M PRN #30 tab PRN Reason: Chest Pain Primary Care Physician: Vincent Negro MD [Primary Care Provider] - Please follow up with your Primary Care Physician in: one week Disposition: Home Minutes spent on discharge:: 35 Patient Condition:: Stable Medical Necessity - Tobacco Use Smoking Status: Former smoker Tobacco Use: Non-smoker Meaningful Use Info Meaningful Use Diagnoses (Choose all that apply): None applicable Code Visit Inpatient E&M: 61443 Disch Hosp
== END 2017-10-30 16:58 | disposition home or self-care (01) ==
LOC: ED 14:31 → PCU 15:38
PROVIDERS: Admitting Provider Family Medicine; Emergency Provider Emergency Medicine; Family Provider Family Medicine; PCP Family Medicine; Visit Provider Student in an Organized Health Care Education/Training Program
DX: R07.89 Other chest pain (principal); R06.09 Other forms of dyspnea; G47.33 Obstructive sleep apnea (adult) (pediatric); E66.01 Morbid (severe) obesity due to excess calories; K21.9 Gastro-esophageal reflux disease without esophagitis; E11.9 Type 2 diabetes mellitus without complications; G89.29 Other chronic pain; M54.9 Dorsalgia, unspecified; Z79.899 Other long term (current) drug therapy; Z79.4 Long term (current) use of insulin; Z79.82 Long term (current) use of aspirin; Z68.45 Body mass index [BMI] 70 or greater, adult; Z71.3 Dietary counseling and surveillance; I11.0 Hypertensive heart disease with heart failure; I50.9 Heart failure, unspecified; F41.9 Anxiety disorder, unspecified; F32.9 Major depressive disorder, single episode, unspecified; Z87.891 Personal history of nicotine dependence
CPT/HCPCS: 36415; 71045; 78452; 80048; 82962; 83735; 84484; 85025; 85027; 85610; 85730; 93005; 93017; 93306; 94002; 94003; 96361; 96372; 96374; 97162; 97165; 99218; 99282; A9500; J7030; Q9957; A4216; C8929; G0378; J2785

== ENCOUNTER → 2018-02-07 15:28 | Outpatient (CLI) | payer MEDICARE, SELFPAY ==
[2018-02-07 18:00] LABS: Amphetamine Urine VISTA NEGATIVE (<1000 ng/mL); Barbiturate Urine VISTA POSITIVE (< 200 ng/mL); Benzodiazepine Urine VISTA NEGATIVE (< 200 ng/mL); Cocaine Urine VISTA NEGATIVE (< 300 ng/mL); Ecstacy Urine VISTA NEGATIVE (< 500 ng/mL); Methadone Urine VISTA NEGATIVE (< 300 ng/mL); PCP Urine VISTA NEGATIVE (< 25 ng/mL); THC Urine VISTA NEGATIVE (< 50 ng/mL); Vista UDS pH Range 7
== END ==
PROVIDERS: Family Provider Family Medicine; PCP Family Medicine; Referring Provider Anesthesiology Pain Medicine; Visit Provider Anesthesiology Pain Medicine
DX: F11.20 Opioid dependence, uncomplicated (principal)
CPT/HCPCS: 80307

== ENCOUNTER 2018-03-06 15:25 | Inpatient (IN) | payer MEDICARE, SELFPAY ==
[2018-03-06] VITALS (7 sets, daily range): BP systolic 93–125; BP diastolic 49–79; PULSE 79–109; RESP 16–20; TEMP 36.1–37.2; O2SAT 96–97; BMI 70.9; BMI 70.2
[2018-03-06 16:20] LABS: Absolute Lymphocyte Count 0.49 X10^3/ul (0.83-4.51); Absolute Neutrophil Count 12.2 X10^3/uL (2.0-7.7); Basophil# 0.01 X10^3/uL; Basophil% 0.1 % (0-1); Differential Indicated SCAN CRITERIA MET; Eosinophil# 0.04 X10^3/uL; Eosinophils% 0.3 % (0-5); Hematocrit 39.6 % (37-47); Hemoglobin 13.4 g/dl (12.0-15.0); Lymphocyte # 0.49 X10^3/ul (4.0); Lymphocyte % 3.7 % (19-41); Mean Corp Hgb Conc 33.8 g/gl (32-36); Mean Corpuscular Hgb 29.3 pg (27.0-32.0); Mean Corpuscular Volume 86.5 fL (81-99); Mean Platelet Vol. 11.4 fl (6.2-12.0); Monocyte% 4.5 % (0-10); Neutrophil # 12.18 X10^3/uL (2.7-7.7); Neutrophil % 91.3 % (47-70); POSITIVE COUNT NO; POSITIVE DIFFERENTIAL YES; POSITIVE MORPHOLOGY NO; Platelet Count 177 K/mm3 (150-450); RBC Distribution Width CV 13.9 % (11.6-14.6); Red Blood Count 4.58 M/mm3 (4.2-5.4); White Blood Count 13.3 K/mm3 (4.4-11.0)
--- NOTE | 2018-03-06 16:34 | RAD_ITS ---
STUDY: X-RAY CHEST REASON FOR EXAM: Female, 58 years old. Cellulitis TECHNIQUE: Single frontal view of the chest. COMPARISON: October 29, 2017 FINDINGS: The lungs are clear and expanded. There is no demonstrated pleural abnormality. Normal size heart. Normal mediastinum and erich. Normal visualized pulmonary arteries. Normal visualized aortic arch and descending thoracic aorta. Normal visualized thoracic spine. Normal visualized ribs, clavicles, and shoulders. There is no demonstrated abnormality of the visualized soft tissue structures of the upper abdomen. RAD/Chest 1 View (Portable) IMPRESSION: Normal x-ray examination of the chest. Electronically Signed: Gm Cao MD at 17:20 EST , Service support ,
[2018-03-06 16:36] LABS: ALB/GLOB Ratio 1.2 RATIO (0.9-2.4); AST(SGOT) 23 U/L (15-37); Alanine Aminotransfer ALT/SGPT 40 U/L (13-56); Albumin, Serum 3.7 g/dL (3.2-5.0); Alkaline Phosphatase 129 U/L (45-117); Anion Gap 9 (5-15); BUN 15 mg/dL (7-18); BUN/Creat Ratio 26.6 RATIO (10-20); Calcium,Total 9.7 mg/dL (8.5-10.1); Chloride 102 mmol/L (98-107); Creatinine, Serum 0.56 mg/dL (0.55-1.02); EST Glomerular Filtration Rate 117 mL/min (>60); Est Glom Filt Rate - Afr Amer 142 mL/min (>60); Estimated Creatinine Clearance 275.22 ml/min; Glucose 108 mg/dL (74-106); Potassium 3.9 mmol/L (3.5-5.1); Protein, Total 6.7 g/dL (6.4-8.2); Sodium Level 141 mmol/L (136-145)
[2018-03-06 16:38] LABS: International Normalized Ratio 1.1; Partial Thromboplast Time 31.3 Seconds (24.1-36.2); Prothrombin Time (Protime)PT. 14.5 SECONDS (11.7-14.9)
--- NOTE | 2018-03-06 16:38 | ED.DCSUM_ITS ---
History of Present Illness Chief Complaint: Cellulitis Informant: Patient, PCP Onset: Days - 2 Context: Gradual Onset Timing: Continuous Quality: sore Location: buttocks Current Severity: Moderate Maximum Severity: Moderate Worsened by: sitting, palpation of affected area Associated Symptoms: weak/malaise, fever today Narrative: Seen by PCP for this today, concerned that patient may be septic similar to prior episodes of this recurrent cellulitis in this location for unknown reason. No recent injury, foreign body, other wounds. Prior similar symptoms: Yes Recent Illness/Hospitalization: No - Past Medical History (1) Diabetes mellitus, type II Status: Chronic (2) Anxiety and depression Status: Chronic (3) Chronic back pain Status: Chronic (4) Esophageal reflux Status: Chronic (5) Hypertension Status: Chronic (6) Lumbosacral neuritis Status: Chronic (7) Morbid obesity Status: Chronic (8) JEREMÍAS (obstructive sleep apnea) Status: Chronic Past Medical History - Allergies and Home Meds Allergies/Adverse Reactions: Allergies vancomycin Allergy (Verified 10/29/17 12:44) Rash amlodipine Adverse Reaction (Verified 10/29/17 12:44) Unknown atenolol Adverse Reaction (Verified 10/29/17 12:44) Unknown bupropion HCl [From Wellbutrin] Adverse Reaction (Verified 10/29/17 12:44) Unknown fluoxetine HCl [From Prozac] Adverse Reaction (Verified 10/29/17 12:44) Unknown meloxicam [From Mobic] Adverse Reaction (Verified 10/29/17 12:44) Unknown metoprolol Adverse Reaction (Verified 10/29/17 12:44) Unknown pregabalin [From Lyrica] Adverse Reaction (Verified 10/29/17 12:44) Unknown quetiapine fumarate [From Seroquel] Adverse Reaction (Verified 10/29/17 12:44) Unknown quinapril HCl [From Accupril] Adverse Reaction (Verified 10/29/17 12:44) Unknown risperidone Adverse Reaction (Verified 10/29/17 12:44) Unknown rofecoxib [From Vioxx] Adverse Reaction (Verified 10/29/17 12:44) Unknown sitagliptin phosphate [From Januvia] Adverse Reaction (Verified 10/29/17 12:44) Unknown venlafaxine HCl [From Effexor] Adverse Reaction (Verified 10/29/17 12:44) Unknown Primary Care Physician: Vincent Negro MD [Primary Care Provider] - Surgical History: - - Cholecystectomy, hernia repair, cataract surgery, D&C. Smoking Status: Former smoker Drugs: None - Family History Sibling Family History: Reports: - - Patient notes sibling with heart disease, coronary disease, diabetes, stroke. Maternal Family History: Reports: - - Patient notes a maternal family history of heart disease, diabetes, stroke. Paternal Family History: Reports: - - Patient notes a paternal family history of hypertension. Review of Systems General: Reports: Chills, Fever, Malaise. Denies: Sweats Eyes: Denies: Visual changes - bilaterally, Diplopia ENT: Denies: Rhinorrhea, Sore throat Cardiovascular: Denies: Chest pain, Palpitations, Heart racing Respiratory: Reports: Dyspnea - when I had a fever; gone now. Denies: Cough, Dyspnea on exertion Gastrointestinal: Denies: Abdominal pain, Nausea, Vomiting, Diarrhea, Melena, Hematochezia Genitourinary: Denies: Dysuria, Hematuria, Frequency Musculoskeletal: Reports: Back pain - buttocks, L>R. Denies: Swelling, Extremity Pain Skin: Reports: Rash - buttocks. Denies: Abrasions Neurological: Denies: Headache, Weakness, Numbness Allergy: Denies: Swelling of the mouth, Swelling of the tongue Physical Exam Vital Signs/Narrative: Vital Signs Temp Pulse Resp BP Pulse Ox 03/06/18 15:26 97.0 F L 109 H 17 125/79 H 97 Inital Vital Signs reviewed: Yes General: Well nourished, Well developed, Obese, - - NAD Head: Normocephalic, Atraumatic Eyes: Perrl, EOMI ENT: Moist mucous membranes, No rhinorrhea Neck: Supple, Nontender Cardiovascular: Regular rate, Regular rhythm, No murmurs Respiratory: No distress, CTA bilaterally, Chest nontender Abdomen: Soft, Nontender, Nondistended, Normal bowel sounds Back: Nontender, Normal Inspection Extremities: Nontender, No edema Skin: Normal color, Rash - tender erythema w/o abscess both buttocks, worse on right; no LE involvement at this time Neurological: Alert, Oriented x3, Cranial nerves II-XII grossly intact, Normal Strength, Normal Sensation Psychological: Normal affect Diagnostic/Tx/Re-eval Impressions Chest X-Ray 03/06/18 16:34 IMPRESSION: Normal x-ray examination of the chest. Electronically Signed: Gm Cao MD at 17:20 EST , Service support , 03/06/18 16:34 Chest 1 View (Portable) [RAD] Stat Laboratory Results 03/06/18 03/06/18 03/06/18 16:05 16:05 16:05 WBC 13.3 H RBC 4.58 Hgb 13.4 Hct 39.6 MCV 86.5 MCH 29.3 MCHC 33.8 RDW 13.9 RDW Differential 43.0 Plt Count 177 MPV 11.4 Immature Gran % (Auto) 0.100 Neut % (Auto) 91.3 H Lymph % (Auto) 3.[address] [place] % (Auto) 4.5 Eos % (Auto) 0.3 Baso % (Auto) 0.1 Absolute Neuts (auto) 12.2 H Absolute Lymphs (auto) 0.49 L Total Counted Not Reportable Differential Comment SCANNED PT 14.5 INR 1.1 APTT 31.3 Sodium 141 Potassium 3.9 Chloride 102 Carbon Dioxide 30.0 Anion Gap 9 BUN 15 Creatinine 0.56 Estim Creat Clear Calc 275.22 Est GFR (MDRD) Af Amer 142 Est GFR (MDRD) Non-Af 117 BUN/Creatinine Ratio 26.6 H Glucose 108 H Lactic Acid Calcium 9.7 Total Bilirubin 0.90 AST 23 ALT 40 Alkaline Phosphatase 129 H Troponin I < 0.015 Total Protein 6.7 Albumin 3.7 Globulin 3.0 Albumin/Globulin Ratio 1.2 Urine Color Urine Clarity Urine pH Ur Specific [place] Urine Protein Urine Glucose (UA) Urine Ketones Urine Occult Blood Urine Nitrite Urine Bilirubin Urine Urobilinogen Ur Leukocyte Esterase Urine RBC Urine WBC Ur Squamous Epith Cells Urine Bacteria Urine Mucus 03/06/18 03/06/18 16:05 17:15 WBC RBC Hgb Hct MCV MCH MCHC RDW RDW Differential Plt Count MPV Immature Gran % (Auto) Neut % (Auto) Lymph % (Auto) [place] % (Auto) Eos % (Auto) Baso % (Auto) Absolute Neuts (auto) Absolute Lymphs (auto) Total Counted Differential Comment PT INR APTT Sodium Potassium Chloride Carbon Dioxide Anion Gap BUN Creatinine Estim Creat Clear Calc Est GFR (MDRD) Af Amer Est GFR (MDRD) Non-Af BUN/Creatinine Ratio Glucose Lactic Acid 1.3 Calcium Total Bilirubin AST ALT Alkaline Phosphatase Troponin I Total Protein Albumin Globulin Albumin/Globulin Ratio Urine Color Yellow Urine Clarity Clear Urine pH 8.0 Ur Specific [place] 1.010 Urine Protein Negative Urine Glucose (UA) Normal Urine Ketones 5 H Urine Occult Blood Negative Urine Nitrite Negative Urine Bilirubin Negative Urine Urobilinogen Normal Ur Leukocyte Esterase 100 H Urine RBC 0 SEEN Urine WBC 0 SEEN Ur Squamous Epith Cells 5-10 SEEN Urine Bacteria 0 SEEN Urine Mucus 0 SEEN - Medical Decision Making Patient had a fever earlier and is not tachycardic, consistent with sepsis. She was given empiric Zosyn which helped when she was an inpatient last time for this problem. She feels very weak and feels the need to be admitted. Will discuss with hospitalist. Has a leukocytosis. ED Disposition - Plan for ED Patient: Disposition: Acute Care Hospital [facility] Chief Complaint: Cellulitis Diagnosis: Sepsis, Cellulitis of multiple sites of buttock Referrals: Vincent Negro MD [Primary Care Provider] -
[2018-03-06 16:48] LABS: Differential Comment SCANNED
[2018-03-06 17:02] LABS: Lactic Acid 1.3 mmol/L (0.4-2.0)
[2018-03-06] MEDS: Piperacil/Tazobactam 3.375 GM/50 ML ML IV (17:08)
[2018-03-06 17:20] LABS: Bacteria 0 SEEN /hpf (None Seen); Mucous, Urine 0 SEEN /hpf (<or=2+); Red Blood Cells-Urine 0 SEEN /hpf (0-5); White Blood Cells 0 SEEN /hpf (0-5)
[2018-03-06 17:29] LABS: Color, Urine Yellow (Yellow); Glucose, Dipstick Normal (Normal); Ketone-Dipstick 5 mg/dl (Negative); Leukocyte Esterase-Dipstick 100 /ul (Negative); Nitrite-Dipstick Negative (Negative); Occult Blood-Urine Negative /ul (Negative); Protein-Dipstick Negative (Negative); Urine Bilirubin Dipstick Negative (Negative); Urine Clarity Clear (Clear); Urine Urobilinogen Normal (Normal)
[2018-03-06 17:44] LABS: Squamous Epithelial Cells - UA 5-10 SEEN /hpf (5-10)
[2018-03-06] MEDS: Acetaminophen 500 MG Tablet 1000 MG PO (18:27)
--- NOTE | 2018-03-06 20:19 | HP.PCM_ITS ---
Problem List (1) Cellulitis of multiple sites of buttock Status: Acute (2) Sepsis Status: Ruled-out (3) Chest pain Status: Resolved Qualifiers: Chest pain type: unspecified Qualified Code(s): R07.9 - Chest pain, unspecified (4) Exertional dyspnea Status: Chronic (5) Anxiety and depression Status: Chronic (6) Chronic back pain Status: Chronic Qualifiers: Back pain location: back pain in unspecified location Back pain laterality: unspecified Qualified Code(s): M54.9 - Dorsalgia, unspecified; G89.29 - Other chronic pain (7) Diabetes mellitus, type II Status: Chronic Qualifiers: Diabetes mellitus nursing home insulin use: with nursing home use Diabetes mellitus complication status: with unspecified complications Qualified Code(s): E11.8 - Type 2 diabetes mellitus with unspecified complications; 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 (8) Esophageal reflux Status: Chronic Qualifiers: Esophagitis presence: esophagitis presence not specified Qualified Code(s): K21.9 - Gastro-esophageal reflux disease without esophagitis (9) Heart failure Status: Chronic Qualifiers: Heart failure type: diastolic Heart failure chronicity: chronic Qualified Code(s): I50.32 - Chronic diastolic (congestive) heart failure (10) History of pneumonia Status: Resolved (11) Hypertension Status: Chronic Qualifiers: Hypertension type: essential hypertension Qualified Code(s): I10 - Essential (primary) hypertension (12) Lumbosacral neuritis Status: Chronic (13) Morbid obesity Status: Chronic (14) JEREMÍAS (obstructive sleep apnea) Status: Chronic (15) Pulmonary hypertension Status: Chronic History of Present Illness Date of Admission: 03/06/18 Chief Complaint: fever to 100 degrees F associated with chills, nausea, weakness and redness on her buttocks The patient is a 58 year old F with a past medical history of diabetes mellitus type 2, hypertension, gastroesophageal reflux disease, anxiety/depression, super morbid obesity, obstructive sleep apnea, pulmonary hypertension, diastolic CHF, chronic back pain and sciatica who presented to the ED at [facility] on 03/06/2018 complaining of cellulitis of her buttocks. She has recently experienced fever to 100 ?F at home associated with chills, nausea, weakness and a red rash on her buttocks when she looks in the mirror. She went to see her primary care physician who referred her to the emergency department. She has had multiple episodes of cellulitis of her buttocks in the past. She admits to being incontinent of urine but, has no incontinence of stool. She is ambulatory with a front wheeled walker. She is able to drive her car. She has home health care 5 days a week at home to help with bathing, toileting. She was afebrile in the emergency room. Her heart rate ranged from 84-91 while in the emerge C room. Blood pressures are within normal limits. Her respiratory rate is 18-20 and she is 96% saturated on room air. Blood cell count was elevated at 13.3 with 91% neutrophils. Hemoglobin and platelets are within normal limits. BMP is unremarkable. Lactic acid was within normal limits at 1.3 and a random glucose was 108. She is being admitted to the hospital with a diagnosis of recurrent cellulitis of the buttocks. Past Medical History Past Medical History (Chronic Problems): Chronic Problems Exertional dyspnea (Chronic) Pulmonary hypertension (Chronic) Anxiety and depression (Chronic) Heart failure (Chronic) Diabetes mellitus, type II (Chronic) Chronic back pain (Chronic) JEREMÍAS (obstructive sleep apnea) (Chronic) Lumbosacral neuritis (Chronic) Esophageal reflux (Chronic) Morbid obesity (Chronic) Hypertension (Chronic) Allergies vancomycin Allergy (Verified 10/29/17 12:44) Rash amlodipine Adverse Reaction (Verified 10/29/17 12:44) Unknown atenolol Adverse Reaction (Verified 10/29/17 12:44) Unknown bupropion HCl [From Wellbutrin] Adverse Reaction (Verified 10/29/17 12:44) Unknown fluoxetine HCl [From Prozac] Adverse Reaction (Verified 10/29/17 12:44) Unknown meloxicam [From Mobic] Adverse Reaction (Verified 10/29/17 12:44) Unknown metoprolol Adverse Reaction (Verified 10/29/17 12:44) Unknown pregabalin [From Lyrica] Adverse Reaction (Verified 10/29/17 12:44) Unknown quetiapine fumarate [From Seroquel] Adverse Reaction (Verified 10/29/17 12:44) Unknown quinapril HCl [From Accupril] Adverse Reaction (Verified 10/29/17 12:44) Unknown risperidone Adverse Reaction (Verified 10/29/17 12:44) Unknown rofecoxib [From Vioxx] Adverse Reaction (Verified 10/29/17 12:44) Unknown sitagliptin phosphate [From Januvia] Adverse Reaction (Verified 10/29/17 12:44) Unknown venlafaxine HCl [From Effexor] Adverse Reaction (Verified 10/29/17 12:44) Unknown Home Medications: Ambulatory Orders Medication Instructions Recorded Aspirin [Adult Low Dose Aspirin EC] 81 mg PO DAILY 12/02/14 Duloxetine HCl 60 mg PO DAILY 12/02/14 Potassium Chloride [K-Dur] 10 meq PO DAILY 12/02/14 Ranitidine [Zantac] 150 mg PO BID 12/02/14 Spironolactone [Aldactone] 25 mg PO DAILY 12/02/14 Gabapentin [Neurontin] 300 mg PO BID 08/01/17 Primidone [Mysoline] 50 mg PO QHS 08/01/17 traZODone [Desyrel] 50 mg PO QHS 08/01/17 Nitroglycerin [Nitrostat] 0.4 mg SL PRN PRN 09/09/17 Aripiprazole [Abilify] 10 mg PO QHS 10/21/17 Furosemide [Lasix] 20 mg PO DAILY 10/29/17 Insulin Glargine,Hum.rec.anlog 10 unit SQ QHS 10/29/17 [Basaglar Kwikpen U-100] Nabumetone [Relafen] 500 mg PO DAILY 10/29/17 Baclofen 10 mg PO BID 03/06/18 Hydrocodone/Acetaminophen 1 tab PO TID PRN PRN 03/06/18 [Hydrocodone-Acetamin 5-325 mg] Polyethylene Glycol 3350 17 gm PO PRN PRN 03/06/18 Surgical History: - - Cholecystectomy, hernia repair, cataract surgery, D&C. Psychiatric History: Anxiety, Depression DEVELOPMENTAL THERAPIST History: No pertinent DEVELOPMENTAL THERAPIST history Lives: Alone - but has [facility] 5 days a week Smoking Status: Former smoker Tobacco Use: Non-smoker - she was a smoker in the past but quit Alcohol: Rare Drugs: None - *Family History Sibling History Items: - - Patient notes sibling with heart disease, coronary disease, diabetes, stroke. Maternal History Items: - - Patient notes a maternal family history of heart disease, diabetes, stroke. Paternal History Items: - - Patient notes a paternal family history of hypertension. Review of Systems Constitutional: Reports: Chills, Fever, Weakness. Denies: Weight Change HEENT: Denies: Head Aches, Sinus Congestion, Sinus Drainage Cardiovascular: Denies: Chest Pain, Light Headedness, Palpitations Respiratory: Reports: Shortness of breath upon exertion. Denies: Cough, Shortness of breath at rest, Sputum production Gastrointestinal: Reports: Nausea. Denies: Abdominal Pain, Diarrhea, Vomiting Genitourinary: Reports: Incontinence. Denies: Dysuria, Retention Gynecological: Denies: Vaginal discharge Musculoskeletal: Reports: Back Pain, Joint Pain, Joint Tenderness Skin: Denies: Jaundice, Rash, Wounds Neurological: Denies: Numbness, Tingling, Focal weakness Psychiatric: Reports: Anxiety, Depression. Denies: Homicidal Ideations, Suicidal Ideations Endocrine: Denies: Change in Body Habitus Hematologic/ Lymphatic: Denies: Easy Bruising, Easy Bleeding, Hx of blood clot VTE Information - Inpt Only VTE Present on Admission: No VTE Mechan Device Prophylaxis: None VTE Pharm Prophylaxis ordered?: Yes Patient Problems: Active and Suspected Problems Cellulitis of multiple sites of buttock (Acute) - Physical Exam General: Alert, Oriented x3, Cooperative, No apparent distress, Well developed, Well nourished HEENT: Atraumatic, PERRLA, EOMI, Normocephalic Oral: No Gingival or Mucosal Lesions/ Ulcerations, Dry Mucosa Neck: Supple, Negative Carotid Bruits, No Nodes, No Nuchal Rigidity Lungs: Clear to auscultation, Normal air movement, No rhonchi, No wheeze, No rales, Diminished Cardiovascular: Regular rate, Regular Rhythm, Normal S1, Normal S2, No Ectopic Activity, Murmur - L ventricular outflow tract, No Gallop Abdomen: Bowel Sounds Present, Soft, Non Tender, Non-Distended Extremities: No clubbing, No cyanosis, No edema, Capillary Refill Less than 3 Seconds, No Calf Tenderness, Peripheral Pulses Normal Skin: - - There is erythema or the R buttock more than the left. It is warm to touch. There is an area of maceration in the R perirectal area that is open. No purulent DC. she has intertrigo in the groin and skin folds beneath the pannus. Musculoskeletal: No Tenderness to Palpation of Joints or Extremities, No Muscle Wasting Neurological: Cranial nerves II-XII grossly intact, Neuro grossly intact Psych/Mental Status: Normal Affect, Appropriate Vital Signs Temp Pulse Resp BP Pulse Ox 98.9 F 89 20 H 111/55 L 96 03/06/18 19:41 03/06/18 19:41 03/06/18 19:41 03/06/18 19:41 03/06/18 19:41 Oxygen Delivery Method Room Air Weight: 351 lb Body Mass Index (BMI) 70.9 Laboratory Tests Past 24 Hrs 03/06/18 03/06/18 03/06/18 16:05 16:05 16:05 WBC 13.3 H RBC 4.58 Hgb 13.4 Hct 39.6 MCV 86.5 MCH 29.3 MCHC 33.8 RDW 13.9 RDW Differential 43.0 Plt Count 177 MPV 11.4 Immature Gran % (Auto) 0.100 Neut % (Auto) 91.3 H Lymph % (Auto) 3.7 L [place] % (Auto) 4.5 Eos % (Auto) 0.3 Baso % (Auto) 0.1 Absolute Neuts (auto) 12.2 H Absolute Lymphs (auto) 0.49 L Total Counted Not Reportable Differential Comment SCANNED PT 14.5 INR 1.1 APTT 31.3 Sodium 141 Potassium 3.9 Chloride 102 Carbon Dioxide 30.0 Anion Gap 9 BUN 15 Creatinine 0.56 Estim Creat Clear Calc 275.22 Est GFR (MDRD) Af Amer 142 Est GFR (MDRD) Non-Af 117 BUN/Creatinine Ratio 26.6 H Glucose 108 H Lactic Acid Calcium 9.7 Total Bilirubin 0.90 AST 23 ALT 40 Alkaline Phosphatase 129 H Troponin I < 0.015 Total Protein 6.7 Albumin 3.7 Globulin 3.0 Albumin/Globulin Ratio 1.2 Urine Color Urine Clarity Urine pH Ur Specific [place] Urine Protein Urine Glucose (UA) Urine Ketones Urine Occult Blood Urine Nitrite Urine Bilirubin Urine Urobilinogen Ur Leukocyte Esterase Urine RBC Urine WBC Ur Squamous Epith Cells Urine Bacteria Urine Mucus 03/06/18 03/06/18 16:05 17:15 WBC RBC Hgb Hct MCV MCH MCHC RDW RDW Differential Plt Count MPV Immature Gran % (Auto) Neut % (Auto) Lymph % (Auto) [place] % (Auto) Eos % (Auto) Baso % (Auto) Absolute Neuts (auto) Absolute Lymphs (auto) Total Counted Differential Comment PT INR APTT Sodium Potassium Chloride Carbon Dioxide Anion Gap BUN Creatinine Estim Creat Clear Calc Est GFR (MDRD) Af Amer Est GFR (MDRD) Non-Af BUN/Creatinine Ratio Glucose Lactic Acid 1.3 Calcium Total Bilirubin AST ALT Alkaline Phosphatase Troponin I Total Protein Albumin Globulin Albumin/Globulin Ratio Urine Color Yellow Urine Clarity Clear Urine pH 8.0 Ur Specific [place] 1.010 Urine Protein Negative Urine Glucose (UA) Normal Urine Ketones 5 H Urine Occult Blood Negative Urine Nitrite Negative Urine Bilirubin Negative Urine Urobilinogen Normal Ur Leukocyte Esterase 100 H Urine RBC 0 SEEN Urine WBC 0 SEEN Ur Squamous Epith Cells 5-10 SEEN Urine Bacteria 0 SEEN Urine Mucus 0 SEEN Assessment/Plan All Active Problems Cellulitis of multiple sites of buttock (Acute) Sepsis (Ruled-out) Chest pain (Resolved) History of pneumonia (Resolved) Impressions 1. Cellulitis of both buttocks with maceration in the right perirectal area. Sepsis ruled out. She has 1 SIRS criteria and that is the WBC of 13.3. 2. Super morbid obesity 3. Urinary incontinence 4. Intertrigo 5. Diabetes mellitus type 2 6. Obstructive sleep apnea-states compliant with CPAP 7. Mild pulmonary hypertension 8. Anxiety/depression 9. Gastroesophageal reflux disease 10. Hypertension 11. History of congestive heart failure-diastolic, EF within the past year was 65% Blood cultures X 2 Lactic acid - normal ESR and CRP Antibiotics Ancef Pain control recheck the lab in the AM Chlorhexidine to decontaminate the skin Calmoseptine in the eliu-rectal area BID Diflucan for intertrigo Consult the wound/ostomy nurse may benefit from a consult with Dr. Lo in the future for urinary incontinence Lovenox for DVT prophylaxis
[2018-03-06 21:24] LABS: Erythrocyte Sedimentation Rate 16 mm/hr (0-30)
[2018-03-06] MEDS: 0.9% NaCl Peripheral Flush Adult/Peds IV (21:36)
[2018-03-06] MEDS: 0.9% Normal Saline 1,000 ML 75 ML IV (21:36)
[2018-03-06 21:46] LABS: Hemoglobin A1c 5.7 % (4.2-6.3)
[2018-03-06 22:11] LABS: Bedside Glucose 104 mg/dL (70-110)
[2018-03-06] MEDS: Baclofen 10 MG Tablet PO (22:43)
[2018-03-06] MEDS: traZODone 50 MG Tablet PO (22:44)
[2018-03-06] MEDS: Primidone 50 MG Tablet PO (22:44)
[2018-03-06] MEDS: Fluconazole 100 MG Tablet 200 MG PO (22:44)
[2018-03-06] MEDS: ARIPiprazole 10 MG Tablet PO (22:44)
[2018-03-06] MEDS: Famotidine 20 MG Tablet PO (22:44)
[2018-03-06] MEDS: Gabapentin 300 MG Capsule PO (22:44)
[2018-03-06] MEDS: Nystatin Powder 15gm Bottle 1 APPLIC TOPICAL (22:46)
[2018-03-06] MEDS: Menthol/Lanolin/Calamine/Znox 113 GM Tube 1 APPLIC TOPICAL (22:47)
--- NOTE | 2018-03-06 23:22 | CPS ---
Pt. brought home BiPAP device. Setup and placed mask at pts. reach.
[2018-03-07] MEDS: Cefazolin 1 GM/50 ML BAG IV ×5 (00:06→23:34)
[2018-03-07 02:25] VITALS: BP 101/45; PULSE 75; RESP 18; TEMP 36.8; O2SAT 95
[2018-03-07] MEDS: HYDROcodone Bitartrate/Apap 5/325 Tablet PO ×2 (06:05→14:24)
[2018-03-07 06:45] LABS: Bedside Glucose 101 mg/dL (70-110)
[2018-03-07 08:00] VITALS: RESP 18
[2018-03-07 08:25] VITALS: BP 112/66; PULSE 72; RESP 18; TEMP 36.5; O2SAT 95
[2018-03-07] MEDS: Etodolac 200 MG Capsule PO (09:13)
[2018-03-07] MEDS: Nystatin Powder 15gm Bottle 1 APPLIC TOPICAL ×2 (09:13→22:37)
[2018-03-07] MEDS: Fluconazole 100 MG Tablet PO (09:14)
[2018-03-07] MEDS: Gabapentin 300 MG Capsule PO ×2 (09:14→22:10)
[2018-03-07] MEDS: Furosemide 20 MG Tablet PO (09:14)
[2018-03-07] MEDS: Aspirin E.C. 81 MG Tablet PO (09:14)
[2018-03-07] MEDS: Famotidine 20 MG Tablet PO ×2 (09:14→22:10)
[2018-03-07] MEDS: Menthol/Lanolin/Calamine/Znox 113 GM Tube 1 APPLIC TOPICAL ×2 (09:15→22:35)
[2018-03-07] MEDS: Spironolactone 25 MG Tablet PO (09:15)
[2018-03-07] MEDS: DULoxetine Hcl 60 MG Capsule PO (09:15)
[2018-03-07] MEDS: Enoxaparin 40 MG/0.4 ML Syringe SC (09:16)
[2018-03-07] MEDS: Baclofen 10 MG Tablet PO ×2 (09:30→22:41)
--- NOTE | 2018-03-07 10:24 | NURSING ---
was asked to see patient for redness to bilateral buttocks/per-rectal area. pt is currently up in chair talking on the phone. will assess later.
[2018-03-07 11:20] LABS: Bedside Glucose 109 mg/dL (70-110)
--- NOTE | 2018-03-07 12:00 | CASEMGMT ---
RN CM SUPERVISOR LITHARGE CM to room to meet with patient for initial transition planning/care coordination assessment. RN CM introduced self and role at [facility]. Pt voices understanding and consents to assessment at this time. Pt sitting up in chair in no distress at this time. Pt is A/O at this time and answers all questions appropriately. Care providers, pharmacy, and demographics verified at this time. PCP: Marky Specialists: Zohra, Cardiology. Shameka, Pulmonology. Dr Baumann, [facility] surgeon for gastric sleeve. Pt states she is getting prepared to have Gastric sleeve in April of this year. [facility] Retail day of discharge. Insurance: [employer] Prescription Benefit: Yes Living Will/HPOA: Pt states she thinks she has a LW and HCPOA, who is her sister, Dario Thomson. She states she will ask Dario if she has copies of these and if she is able to bring in to hospital to have placed in her chart. LNOK: Sisters, Dario and Adela. States both sisters are supportive. Living Arrangements: Lives alone in a one-story apt. No stairs to enter. Transportation: Pt states drives self and states no transportation concerns at this time. States her sister, Dario, can assist if needed. DME: has the following DME: Shower chair, raised toilet seat, hospital bed, lift chair, rails/grab bars, hand held shower, walker, rollator, W/C, medical alert, BIPAP, and nebulizer. Pt states no need for further DME at this time. HHC/SNF: did have [facility] skilled care until last week when she was discharged from their services. Pt states she does not feel that she needs any skilled [facility] nurse services or therapy at this time. She states she has been doing exercises @ home and feels that she is pretty strong. Has passport services and receives C aides through [facility] 5 days a week for 3 hrs/day. Call placed to [facility] and they confirmed pt is current with them. They are aware pt admitted to [facility] with possible discharge tomorrow 03/08/18. Pt wishes to return home and states has no concerns with going home at time of discharge. CM to follow for discharge planning/needs that may arise. Pt voices no further concerns/needs at this time. Advised pt to ask for CM if any further questions/concerns/needs arise. Voices understanding. PLAN: Home w/continued HHC aides through [facility]. Allen GARCÍA RN CM
--- NOTE | 2018-03-07 12:37 | PCM.PN.HOSP ---
Patient Problems: Active and Suspected Problems Cellulitis of multiple sites of buttock (Acute) Subjective: Patient was seen and examined. She feels much improved. No more fever or chills. No acute events overnight. Redness is improving. Objective: Physical Exam General: Alert, Oriented x3, Cooperative, No apparent distress, Well developed, Well nourished HEENT: Atraumatic, PERRLA, EOMI, Normocephalic Oral: No Gingival or Mucosal Lesions/ Ulcerations, Dry Mucosa Neck: Supple, Negative Carotid Bruits, No Nodes, No Nuchal Rigidity Lungs: Clear to auscultation, Normal air movement, No rhonchi, No wheeze, No rales, Diminished Cardiovascular: Regular rate, Regular Rhythm, Normal S1, Normal S2, No Ectopic Activity, Murmur, 2/6, Abdomen: Bowel Sounds Present, Soft, Non Tender, Non-Distended Extremities: No clubbing, No cyanosis, No edema, Capillary Refill Less than 3 Seconds, No Calf Tenderness, Peripheral Pulses Normal Skin: - - There is erythema or the R buttock more than the left, improving within demarcation, an area of maceration in the R perirectal area that is open. No purulent discharge, intertrigo in the groin and skin folds beneath the pannus. Musculoskeletal: No Tenderness to Palpation of Joints or Extremities, No Muscle Wasting Neurological: Cranial nerves II-XII grossly intact, Neuro grossly intact Psych/Mental Status: Normal Affect, Appropriate Vitals/I&O's: Vital Signs Temp Pulse Resp BP Pulse Ox 97.7 F L 72 18 112/66 95 03/07/18 08:25 03/07/18 08:25 03/07/18 08:25 03/07/18 08:25 03/07/18 08:25 Oxygen Delivery Method Room Air Weight: 157.595 kg Body Mass Index (BMI) 70.2 Intake and Output for Last 24 Hours 03/05/18 03/06/18 03/07/18 23:59 23:59 23:59 Intake Total 1149 / 1149 Balance 1149 / 1149 Laboratory Results 03/06/18 16:05: WBC 13.3 H, RBC 4.58, Hgb 13.4, Hct 39.6, MCV 86.5, MCH 29.3, MCHC 33.8, RDW 13.9, RDW Differential 43.0, Plt Count 177, MPV 11.4, Immature Gran % (Auto) 0.100, Neut % (Auto) 91.3 H, Lymph % (Auto) 3.7 L, [place] % (Auto) 4.5, Eos % (Auto) 0.3, Baso % (Auto) 0.1, Absolute Neuts (auto) 12.2 H, Absolute Lymphs (auto) 0.49 L, Total Counted Not Reportable, Differential Comment SCANNED 03/06/18 16:05: PT 14.5, INR 1.1, APTT 31.3 03/06/18 16:05: Sodium 141, Potassium 3.9, Chloride 102, Carbon Dioxide 30.0, Anion Gap 9, BUN 15, Creatinine 0.56, Estim Creat Clear Calc 275.22, Est GFR (MDRD) Af Amer 142, Est GFR (MDRD) Non-Af 117, BUN/Creatinine Ratio 26.6 H, Glucose 108 H, Calcium 9.7, Total Bilirubin 0.90, AST 23, ALT 40, Alkaline Phosphatase 129 H, Troponin I < 0.015, Total Protein 6.7, Albumin 3.7, Globulin 3.0, Albumin/Globulin Ratio 1.2 03/06/18 16:05: Lactic Acid 1.3 03/06/18 16:05: C-React Prot Ext Range 83.70 H 03/06/18 16:05: ESR 16 03/06/18 16:05: Hemoglobin A1c 5.7 03/06/18 17:15: Urine Color Yellow, Urine Clarity Clear, Urine pH 8.0, Ur Specific [place] 1.010, Urine Protein Negative, Urine Glucose (UA) Normal, Urine Ketones 5 H, Urine Occult Blood Negative, Urine Nitrite Negative, Urine Bilirubin Negative, Urine Urobilinogen Normal, Ur Leukocyte Esterase 100 H, Urine RBC 0 SEEN, Urine WBC 0 SEEN, Ur Squamous Epith Cells 5-10 SEEN, Urine Bacteria 0 SEEN, Urine Mucus 0 SEEN 03/06/18 22:07: POC Glucose 104 03/07/18 06:40: POC Glucose 101 03/07/18 11:16: POC Glucose 109 Current Medications Hydrocodone Bitart/Acetaminophen ([place] 5mg-325mg) 1 tablet PO TID PRN PRN PRN Reason: PAIN Last Admin: 03/07/18 06:05 Dose: 1 tablet Aripiprazole (Abilify) 10 mg PO QHS [facility] Last Admin: 03/06/18 22:44 Dose: 10 mg Aspirin (Ecotrin) 81 mg PO DAILY [facility] Last Admin: 03/07/18 09:14 Dose: 81 mg Baclofen (Lioresal) 10 mg PO BID [facility] Last Admin: 03/07/18 09:30 Dose: 10 mg Calamine/Phenol (Calmoseptine Ointment) 1 applic TOPICAL BID [facility]; Protocol Last Admin: 03/07/18 09:15 Dose: 1 applicatio Chlorhexidine Gluconate () 1 each TOPICAL DAILY [facility] Stop: 03/12/18 10:01 Dextrose (D50w Syringe) 0 gm IV X1 PRN; Protocol PRN Reason: Hypoglycemia Duloxetine HCl (Cymbalta) 60 mg PO DAILY [facility] Last Admin: 03/07/18 09:15 Dose: 60 mg Enoxaparin Sodium (Lovenox) 40 mg SC DAILY [facility] Last Admin: 03/07/18 09:16 Dose: 40 mg Etodolac (Lodine) 200 mg PO DAILY [facility] Last Admin: 03/07/18 09:13 Dose: 200 mg Famotidine (Pepcid) 20 mg PO BID [facility] Last Admin: 03/07/18 09:14 Dose: 20 mg Fluconazole (Diflucan) 100 mg PO DAILY [facility] Stop: 03/12/18 10:01 Last Admin: 03/07/18 09:14 Dose: 100 mg Furosemide (Lasix) 20 mg PO DAILY [facility] Last Admin: 03/07/18 09:14 Dose: 20 mg Gabapentin (Neurontin) 300 mg PO BID [facility] Last Admin: 03/07/18 09:14 Dose: 300 mg Glucagon () 1 mg IM .X1 PRN PRN Reason: Hypoglycemia Cefazolin Sodium () 1 gm in 50 mls @ 100 mls/hr IV Q6 [facility] Last Admin: 03/07/18 11:58 Dose: 100 mls/hr Insulin Glargine (Lantus (Bkc)) 10 units SC QHS [facility] Last Admin: 03/06/18 22:45 Dose: 10 u Insulin Human Lispro (Humalog Kwikpen (Bkc)) 0 unit SQ ACHS [facility]; Protocol Last Admin: 03/07/18 11:17 Dose: Not Given Nitroglycerin (Nitrostat) 0.4 mg SUBLINGUAL PRN PRN PRN Reason: cp Nystatin (Mycostatin Powder) 1 applic TOPICAL BID [facility]; Protocol Last Admin: 03/07/18 09:13 Dose: 1 applicatio Polyethylene Glycol (Miralax) 17 gm PO DAILY PRN PRN Potassium Chloride (K-Dur) 10 meq PO DAILY [facility] Last Admin: 03/07/18 09:14 Dose: 10 meq Primidone (Mysoline) 50 mg PO QHS [facility] Last Admin: 03/06/18 22:44 Dose: 50 mg Prochlorperazine Edisylate (Compazine Iv) 5 mg IV Q6H PRN PRN PRN Reason: NAUSEA/VOMITING Sodium Chloride () 5 - 15 ml IV UD PRN PRN Reason: SALINE FLUSH Last Admin: 03/06/18 21:36 Dose: 10 ml Spironolactone (Aldactone) 25 mg PO DAILY [facility] Last Admin: 03/07/18 09:15 Dose: 25 mg Trazodone HCl (Desyrel) 50 mg PO QHS [facility] Last Admin: 03/06/18 22:44 Dose: 50 mg Medical Necessity - Tobacco Use Smoking Status: Former smoker Tobacco Use: Non-smoker - she was a smoker in the past but quit Assessment/Plan All Active Problems Cellulitis of multiple sites of buttock (Acute) Sepsis (Ruled-out) Chest pain (Resolved) History of pneumonia (Resolved) 58-year-old female with past medical history of super morbid obesity, type II DM, history of recurrent cellulitis comes in with another episode of cellulitis 1. Recurrent cellulitis of buttocks with maceration in the right perirectal area, improving, on IV cefazolin, continue on chlorhexidine baths 2. Type II DM, sugars are controlled, on Lantus with insulin sliding scale, continue same 3. Super morbid obesity, BMI of 17.2, patient is a candidate for bariatric surgery 4. Candidal intertrigo, on nystatin powder and fluconazole 5. Anxiety/depression, on trazodone, Abilify 6. Hypertension, controlled, on Aldactone 7. Chronic diastolic CHF, no signs of acute exacerbation, continue 8. JEREMÍAS on CPAP 9. DVT Prophylaxis - Lovenox subcu Code Visit Inpatient E&M: 94436 Subs Hosp L2
--- NOTE | 2018-03-07 12:44 | PN_ITS ---
Patient Problems: Active and Suspected Problems Cellulitis of multiple sites of buttock (Acute) Subjective: Patient was seen and examined. She feels much improved. No more fever or chills. No acute events overnight. Redness is improving. Objective: Physical Exam General: Alert, Oriented x3, Cooperative, No apparent distress, Well developed, Well nourished HEENT: Atraumatic, PERRLA, EOMI, Normocephalic Oral: No Gingival or Mucosal Lesions/ Ulcerations, Dry Mucosa Neck: Supple, Negative Carotid Bruits, No Nodes, No Nuchal Rigidity Lungs: Clear to auscultation, Normal air movement, No rhonchi, No wheeze, No rales, Diminished Cardiovascular: Regular rate, Regular Rhythm, Normal S1, Normal S2, No Ectopic Activity, Murmur, 2/6, Abdomen: Bowel Sounds Present, Soft, Non Tender, Non-Distended Extremities: No clubbing, No cyanosis, No edema, Capillary Refill Less than 3 Seconds, No Calf Tenderness, Peripheral Pulses Normal Skin: - - There is erythema or the R buttock more than the left, improving within demarcation, an area of maceration in the R perirectal area that is open. No purulent discharge, intertrigo in the groin and skin folds beneath the pannus. Musculoskeletal: No Tenderness to Palpation of Joints or Extremities, No Muscle Wasting Neurological: Cranial nerves II-XII grossly intact, Neuro grossly intact Psych/Mental Status: Normal Affect, Appropriate Vitals/I&O's: Vital Signs Temp Pulse Resp BP Pulse Ox 97.7 F L 72 18 112/66 95 03/07/18 08:25 03/07/18 08:25 03/07/18 08:25 03/07/18 08:25 03/07/18 08:25 Oxygen Delivery Method Room Air Weight: 157.595 kg Body Mass Index (BMI) 70.2 Intake and Output for Last 24 Hours 03/05/18 03/06/18 03/07/18 23:59 23:59 23:59 Intake Total 1149 / 1149 Balance 1149 / 1149 Laboratory Results 03/06/18 16:05: WBC 13.3 H, RBC 4.58, Hgb 13.4, Hct 39.6, MCV 86.5, MCH 29.3, MCHC 33.8, RDW 13.9, RDW Differential 43.0, Plt Count 177, MPV 11.4, Immature Gran % (Auto) 0.100, Neut % (Auto) 91.3 H, Lymph % (Auto) 3.7 L, [place] % (Auto) 4.5, Eos % (Auto) 0.3, Baso % (Auto) 0.1, Absolute Neuts (auto) 12.2 H, Absolute Lymphs (auto) 0.49 L, Total Counted Not Reportable, Differential Comment SCANNED 03/06/18 16:05: PT 14.5, INR 1.1, APTT 31.3 03/06/18 16:05: Sodium 141, Potassium 3.9, Chloride 102, Carbon Dioxide 30.0, Anion Gap 9, BUN 15, Creatinine 0.56, Estim Creat Clear Calc 275.22, Est GFR (MDRD) Af Amer 142, Est GFR (MDRD) Non-Af 117, BUN/Creatinine Ratio 26.6 H, Glucose 108 H, Calcium 9.7, Total Bilirubin 0.90, AST 23, ALT 40, Alkaline Phosphatase 129 H, Troponin I < 0.015, Total Protein 6.7, Albumin 3.7, Globulin 3.0, Albumin/Globulin Ratio 1.2 03/06/18 16:05: Lactic Acid 1.3 03/06/18 16:05: C-React Prot Ext Range 83.70 H 03/06/18 16:05: ESR 16 03/06/18 16:05: Hemoglobin A1c 5.7 03/06/18 17:15: Urine Color Yellow, Urine Clarity Clear, Urine pH 8.0, Ur Specific [place] 1.010, Urine Protein Negative, Urine Glucose (UA) Normal, Urine Ketones 5 H, Urine Occult Blood Negative, Urine Nitrite Negative, Urine Bilirubin Negative, Urine Urobilinogen Normal, Ur Leukocyte Esterase 100 H, Urine RBC 0 SEEN, Urine WBC 0 SEEN, Ur Squamous Epith Cells 5-10 SEEN, Urine Bacteria 0 SEEN, Urine Mucus 0 SEEN 03/06/18 22:07: POC Glucose 104 03/07/18 06:40: POC Glucose 101 03/07/18 11:16: POC Glucose 109 Current Medications Hydrocodone Bitart/Acetaminophen ([place] 5mg-325mg) 1 tablet PO TID PRN PRN PRN Reason: PAIN Last Admin: 03/07/18 06:05 Dose: 1 tablet Aripiprazole (Abilify) 10 mg PO QHS [facility] Last Admin: 03/06/18 22:44 Dose: 10 mg Aspirin (Ecotrin) 81 mg PO DAILY [facility] Last Admin: 03/07/18 09:14 Dose: 81 mg Baclofen (Lioresal) 10 mg PO BID [facility] Last Admin: 03/07/18 09:30 Dose: 10 mg Calamine/Phenol (Calmoseptine Ointment) 1 applic TOPICAL BID [facility]; Protocol Last Admin: 03/07/18 09:15 Dose: 1 applicatio Chlorhexidine Gluconate () 1 each TOPICAL DAILY [facility] Stop: 03/12/18 10:01 Dextrose (D50w Syringe) 0 gm IV X1 PRN; Protocol PRN Reason: Hypoglycemia Duloxetine HCl (Cymbalta) 60 mg PO DAILY [facility] Last Admin: 03/07/18 09:15 Dose: 60 mg Enoxaparin Sodium (Lovenox) 40 mg SC DAILY [facility] Last Admin: 03/07/18 09:16 Dose: 40 mg Etodolac (Lodine) 200 mg PO DAILY [facility] Last Admin: 03/07/18 09:13 Dose: 200 mg Famotidine (Pepcid) 20 mg PO BID [facility] Last Admin: 03/07/18 09:14 Dose: 20 mg Fluconazole (Diflucan) 100 mg PO DAILY [facility] Stop: 03/12/18 10:01 Last Admin: 03/07/18 09:14 Dose: 100 mg Furosemide (Lasix) 20 mg PO DAILY [facility] Last Admin: 03/07/18 09:14 Dose: 20 mg Gabapentin (Neurontin) 300 mg PO BID [facility] Last Admin: 03/07/18 09:14 Dose: 300 mg Glucagon () 1 mg IM .X1 PRN PRN Reason: Hypoglycemia Cefazolin Sodium () 1 gm in 50 mls @ 100 mls/hr IV Q6 [facility] Last Admin: 03/07/18 11:58 Dose: 100 mls/hr Insulin Glargine (Lantus (Bkc)) 10 units SC QHS [facility] Last Admin: 03/06/18 22:45 Dose: 10 u Insulin Human Lispro (Humalog Kwikpen (Bkc)) 0 unit SQ ACHS [facility]; Protocol Last Admin: 03/07/18 11:17 Dose: Not Given Nitroglycerin (Nitrostat) 0.4 mg SUBLINGUAL PRN PRN PRN Reason: cp Nystatin (Mycostatin Powder) 1 applic TOPICAL BID [facility]; Protocol Last Admin: 03/07/18 09:13 Dose: 1 applicatio Polyethylene Glycol (Miralax) 17 gm PO DAILY PRN PRN Potassium Chloride (K-Dur) 10 meq PO DAILY [facility] Last Admin: 03/07/18 09:14 Dose: 10 meq Primidone (Mysoline) 50 mg PO QHS [facility] Last Admin: 03/06/18 22:44 Dose: 50 mg Prochlorperazine Edisylate (Compazine Iv) 5 mg IV Q6H PRN PRN PRN Reason: NAUSEA/VOMITING Sodium Chloride () 5 - 15 ml IV UD PRN PRN Reason: SALINE FLUSH Last Admin: 03/06/18 21:36 Dose: 10 ml Spironolactone (Aldactone) 25 mg PO DAILY [facility] Last Admin: 03/07/18 09:15 Dose: 25 mg Trazodone HCl (Desyrel) 50 mg PO QHS [facility] Last Admin: 03/06/18 22:44 Dose: 50 mg Medical Necessity - Tobacco Use Smoking Status: Former smoker Tobacco Use: Non-smoker - she was a smoker in the past but quit Assessment/Plan All Active Problems Cellulitis of multiple sites of buttock (Acute) Sepsis (Ruled-out) Chest pain (Resolved) History of pneumonia (Resolved) 58-year-old female with past medical history of super morbid obesity, type II DM, history of recurrent cellulitis comes in with another episode of cellulitis 1. Recurrent cellulitis of buttocks with maceration in the right perirectal area, improving, on IV cefazolin, continue on chlorhexidine baths 2. Type II DM, sugars are controlled, on Lantus with insulin sliding scale, continue same 3. Super morbid obesity, BMI of 17.2, patient is a candidate for bariatric surgery 4. Candidal intertrigo, on nystatin powder and fluconazole 5. Anxiety/depression, on trazodone, Abilify 6. Hypertension, controlled, on Aldactone 7. Chronic diastolic CHF, no signs of acute exacerbation, continue 8. JEREMÍAS on CPAP 9. DVT Prophylaxis - Lovenox subcu Code Visit Inpatient E&M: 71038 Subs Hosp L2
--- NOTE | 2018-03-07 13:33 | CASEMGMT ---
Social Work Note Per previous admissions and notes, pt's CM at [facility] is Shanice Lyons. SW placed a call to Shanice Lyons and left her a message informing her of pt's admission to [facility]. Janell Coates DELI WORKER, INDUSTRIAL BOILERMAKER
[2018-03-07 17:06] LABS: Bedside Glucose 122 mg/dL (70-110)
[2018-03-07 20:29] VITALS: BP 111/62; PULSE 62; RESP 18; TEMP 36.6; O2SAT 100
[2018-03-07] MEDS: traZODone 50 MG Tablet PO (22:10)
[2018-03-07] MEDS: Primidone 50 MG Tablet PO (22:10)
[2018-03-07] MEDS: ARIPiprazole 10 MG Tablet PO (22:10)
[2018-03-07 22:45] LABS: Bedside Glucose 113 mg/dL (70-110)
[2018-03-07] MEDS: 0.9% NaCl Peripheral Flush Adult/Peds IV (23:34)
[2018-03-08 03:14] VITALS: BP 107/63; PULSE 74; RESP 18; TEMP 36.9; O2SAT 94
[2018-03-08] MEDS: HYDROcodone Bitartrate/Apap 5/325 Tablet PO (04:26)
[2018-03-08] MEDS: 0.9% NaCl Peripheral Flush Adult/Peds IV (05:41)
[2018-03-08] MEDS: Cefazolin 1 GM/50 ML BAG IV (05:44)
[2018-03-08 05:49] LABS: Absolute Lymphocyte Count 1.29 X10^3/ul (0.83-4.51); Basophil# 0.01 X10^3/uL; Basophil% 0.2 % (0-1); Eosinophil# 0.24 X10^3/uL; Eosinophils% 4.9 % (0-5); Hematocrit 41.6 % (37-47); Hemoglobin 13.7 g/dl (12.0-15.0); Lymphocyte # 1.29 X10^3/ul (4.0); Lymphocyte % 26.3 % (19-41); Mean Corp Hgb Conc 32.9 g/gl (32-36); Mean Corpuscular Hgb 29.1 pg (27.0-32.0); Mean Corpuscular Volume 88.5 fL (81-99); Mean Platelet Vol. 11.4 fl (6.2-12.0); Monocyte# 0.35 X10^3/uL; Monocyte% 7.1 % (0-10); Neutrophil # 3.01 X10^3/uL (2.7-7.7); Neutrophil % 61.5 % (47-70); Platelet Count 183 K/mm3 (150-450); RBC Distribution Width CV 14.1 % (11.6-14.6); RBC Distribution Width SD 45.6 fl (35.1-43.9); White Blood Count 4.9 K/mm3 (4.4-11.0)
[2018-03-08 06:05] LABS: Anion Gap 8 (5-15); BUN 13 mg/dL (7-18); BUN/Creat Ratio 23.1 RATIO (10-20); Calcium,Total 9.5 mg/dL (8.5-10.1); Chloride 108 mmol/L (98-107); Creatinine, Serum 0.56 mg/dL (0.55-1.02); EST Glomerular Filtration Rate 118 mL/min (>60); Est Glom Filt Rate - Afr Amer 142 mL/min (>60); Estimated Creatinine Clearance 272.44 ml/min; Glucose 141 mg/dL (74-106); Potassium 4.2 mmol/L (3.5-5.1); Sodium Level 142 mmol/L (136-145)
[2018-03-08 06:10] LABS: POSITIVE COUNT NO; POSITIVE DIFFERENTIAL NO; POSITIVE MORPHOLOGY NO
[2018-03-08 07:01] LABS: Bedside Glucose 135 mg/dL (70-110)
[2018-03-08 08:06] VITALS: BP 122/63; PULSE 66; RESP 18; TEMP 36.6; O2SAT 96
[2018-03-08] MEDS: Enoxaparin 40 MG/0.4 ML Syringe SC (08:17)
[2018-03-08] MEDS: Fluconazole 100 MG Tablet PO (08:18)
[2018-03-08] MEDS: Nystatin Powder 15gm Bottle 1 APPLIC TOPICAL (08:18)
[2018-03-08] MEDS: Gabapentin 300 MG Capsule PO (08:18)
[2018-03-08] MEDS: Aspirin E.C. 81 MG Tablet PO (08:19)
[2018-03-08] MEDS: Famotidine 20 MG Tablet PO (08:19)
[2018-03-08] MEDS: Spironolactone 25 MG Tablet PO (08:19)
[2018-03-08] MEDS: Furosemide 20 MG Tablet PO (08:19)
[2018-03-08] MEDS: DULoxetine Hcl 60 MG Capsule PO (08:19)
[2018-03-08] MEDS: Menthol/Lanolin/Calamine/Znox 113 GM Tube 1 APPLIC TOPICAL (08:20)
[2018-03-08] MEDS: Etodolac 200 MG Capsule PO (08:20)
[2018-03-08] MEDS: CHLORHEXIDINE GLUC 2% CLOTH 1 EACH TOWELETTE TOPICAL (08:20)
[2018-03-08] MEDS: Baclofen 10 MG Tablet PO (08:23)
--- NOTE | 2018-03-08 09:44 | DS.PCM_ITS ---
Discharge Date and Diagnosis Date of Admission: 03/06/18 Date of Discharge: 03/08/18 - Primary Discharge Diagnosis Active and Suspected Problems Cellulitis of multiple sites of buttock (Acute) - Secondary Discharge Diagnosis Chronic Problems Exertional dyspnea (Chronic) Pulmonary hypertension (Chronic) Anxiety and depression (Chronic) Heart failure (Chronic) Diabetes mellitus, type II (Chronic) Chronic back pain (Chronic) JEREMÍAS (obstructive sleep apnea) (Chronic) Lumbosacral neuritis (Chronic) Esophageal reflux (Chronic) Morbid obesity (Chronic) Hypertension (Chronic) Hospital Course and Treatment Imaging Results: Clinical Impression(s) from Imaging Studies Chest X-Ray 03/06/18 16:34 IMPRESSION: Normal x-ray examination of the chest. Electronically Signed: Gm Cao MD at 17:20 EST , Service support , Consultations 03/06/18 20:34 Consult: Onc/Wound/medical secretary receptionist Routine Comment: Reason for Consult:: maceration eliu-rectal with cellulitis of the buttocks Operations: None Procedures: None Summary of Care Provided: 58-year-old female with past medical history of super morbid obesity, type II DM, history of recurrent cellulitis comes in with another episode of cellulitis. Patient was admitted to the monitored bed, managed on IV cefazolin, with improvement in his cellulitis. She was also continued on chlorhexidine bath. Patient did not have any fevers or chills. His hospital stay was uneventful. She was continued on her previous home medications. Started on fluconazole and nystatin powder for Shira intertrigo. She was discharged on Keflex for 5 more days. She will also discharged on fluconazole for 5 more days. Patient was advised to use chlorhexidine baths daily. She has an appointment to follow-up for possible bariatric surgery. Subjective: Patient was seen and examined, on the day of discharge. Feels improved. Denied any fever or chills. No new complaints. Previous night was uneventful. Objective: Physical Exam General: Alert, Oriented x3, Cooperative, No apparent distress, Well developed, Well nourished HEENT: Atraumatic, PERRLA, EOMI, Normocephalic Oral: No Gingival or Mucosal Lesions/ Ulcerations, Dry Mucosa Neck: Supple, Negative Carotid Bruits, No Nodes, No Nuchal Rigidity Lungs: Clear to auscultation, Normal air movement, No rhonchi, No wheeze, No rales, Diminished Cardiovascular: Regular rate, Regular Rhythm, Normal S1, Normal S2, No Ectopic Activity, Murmur, 2/6, Abdomen: Bowel Sounds Present, Soft, Non Tender, Non-Distended Extremities: No clubbing, No cyanosis, No edema, Capillary Refill Less than 3 Seconds, No Calf Tenderness, Peripheral Pulses Normal Skin: - - Improving erythema or the R buttock more than the left, improving with in demarcation, an area of maceration in the R perirectal area improving, No purulent discharge, intertrigo in the groin and skin folds beneath the pannus. Musculoskeletal: No Tenderness to Palpation of Joints or Extremities, No Muscle Wasting Neurological: Cranial nerves II-XII grossly intact, Neuro grossly intact Psych/Mental Status: Normal Affect, Appropriate - Physical Exam Vital Signs Temp Pulse Resp BP Pulse Ox 97.8 F 66 18 122/63 H 96 03/08/18 08:06 03/08/18 08:06 03/08/18 08:06 03/08/18 08:06 03/08/18 08:06 Oxygen Delivery Method Room Air Weight: 157.6 kg Body Mass Index (BMI) 70.2 Intake and Output for Last 24 Hours 03/06/18 03/07/18 03/08/18 23:59 23:59 23:59 Intake Total 2849 / 2849 160 / 160 Balance 2849 / 2849 160 / 160 Microbiology Past 72 Hours 03/06/18 17:15 Urine Culture - Final Urine, Clean Catch Mixed Gram Pos & Gram Neg Org Laboratory Tests Past 24 Hrs 03/08/18 03/08/18 05:34 05:34 WBC 4.9 RBC 4.70 Hgb 13.7 Hct 41.6 MCV 88.5 MCH 29.1 MCHC 32.9 RDW 14.1 RDW Differential 45.6 H Plt Count 183 MPV 11.4 Immature Gran % (Auto) 0.000 Neut % (Auto) 61.5 Lymph % (Auto) 26.3 [place] % (Auto) 7.1 Eos % (Auto) 4.9 Baso % (Auto) 0.2 Absolute Neuts (auto) 3.0 Absolute Lymphs (auto) 1.29 Total Counted Not Reportable Sodium 142 Potassium 4.2 Chloride 108 H Carbon Dioxide 26.0 Anion Gap 8 BUN 13 Creatinine 0.56 Estim Creat Clear Calc 272.44 Est GFR (MDRD) Af Amer 142 Est GFR (MDRD) Non-Af 118 BUN/Creatinine Ratio 23.1 H Glucose 141 H Calcium 9.5 POC Glucose 03/08/18 03/07/18 03/07/18 06:56 21:54 17:01 POC Glucose 135 H 113 H 122 H 03/07/18 11:16 POC Glucose 109 Discharge Diet: Low fat/ Low Cholesterol, 2000 mg Sodium Diet, Carb Control Diet Discharge Activity: Return to Normal Activity Call your doctor if your incision/area has: Increased Pain/ Swelling, Increased Redness Call your doctor if you observe: Fever of 101 or Higher Home Medications: Medications to take at Discharge Aspirin [Adult Low Dose Aspirin EC] 81 mg PO DAILY 12/02/14 Duloxetine HCl 60 mg PO DAILY 12/02/14 Ranitidine [Zantac] 150 mg PO BID 12/02/14 Spironolactone [Aldactone] 25 mg PO DAILY 12/02/14 Gabapentin [Neurontin] 300 mg PO BID 08/01/17 Primidone [Mysoline] 50 mg PO QHS 08/01/17 traZODone [Desyrel] 50 mg PO QHS 08/01/17 Nitroglycerin [Nitrostat] 0.4 mg SL PRN PRN 09/09/17 Aripiprazole [Abilify] 10 mg PO QHS 10/21/17 Furosemide [Lasix] 20 mg PO DAILY 10/29/17 Insulin Glargine,Hum.rec.anlog [Basaglar Kwikpen U-100] 10 unit SQ QHS 10/29/17 Nabumetone [Relafen] 500 mg PO DAILY 10/29/17 Baclofen 10 mg PO BID 03/06/18 Hydrocodone/Acetaminophen [Hydrocodone-Acetamin 5-325 mg] 1 tab PO TID PRN PRN 03/06/18 Polyethylene Glycol 3350 17 gm PO PRN PRN 03/06/18 Cephalexin [Keflex] 500 mg PO Q6 #20 capsule 03/08/18 Chlorhexidine Gluc 2% Cloth [(None)] 1 each TOPICAL DAILY #5 pack 01/18/19 Fluconazole [Diflucan] 100 mg PO DAILY #5 tablet 03/08/18 Menthol/Lanolin/Calamine/Znox [Calmoseptine Ointment] 1 applic TOPICAL BID #1 tube 03/08/18 Nystatin Powder [Mycostatin Powder] 1 applic TOPICAL BID #1 bottle 03/08/18 Following Prescrptions Were Given to Patient: Cephalexin [Keflex] 500 mg PO Q6 #20 capsule Chlorhexidine Gluc 2% Cloth [(None)] 1 each TOPICAL DAILY #5 pack Fluconazole [Diflucan] 100 mg PO DAILY #5 tablet Menthol/Lanolin/Calamine/Znox [Calmoseptine Ointment] 1 applic TOPICAL BID #1 tube Nystatin Powder [Mycostatin Powder] 1 applic TOPICAL BID #1 bottle Primary Care Physician: Vincent Negro MD [Primary Care Provider] - Please follow up with your Primary Care Physician in: within 2 weeks of discharge Disposition: Home with Home Health Minutes spent on discharge:: 40 Patient Condition:: Stable Medical Necessity - Tobacco Use Smoking Status: Former smoker Tobacco Use: Non-smoker - she was a smoker in the past but quit Meaningful Use Info Meaningful Use Diagnoses (Choose all that apply): None applicable Code Visit Inpatient E&M: 07406 Disch Hosp
--- NOTE | 2018-03-08 09:44 | DCINST_ITS ---
- Discharge Diagnoses Current Active Problems: Current Active and Chronic Problems Cellulitis of multiple sites of buttock (Acute) Pulmonary hypertension (Chronic) Reason(s) for Visit for Discharge Instructions: fever, chills, redness of the buttocks You will use the following diet at home:: Calorie/Carbohydrate Controlled (specify 1200, 1400, etc), Cardiac Your food should be the consistency of: Regular Your liquids should be the consistency of: Regular/Thin Discharge Activity: Return to Normal Activity Call your doctor if your incision/area has: Increased Pain/ Swelling, Increased Redness Call your doctor if you observe: Fever of 101 or Higher Additional Instructions: Complete your antibiotics and antifungal as prescribed. Continue the nystatin powder and calmoseptine. You are recommended to use the chlorhexidine bath twice a day or at least daily. Follow-up with your primary doctor for results of blood cultures that were pending at time of discharge. Allergies/Adverse Reactions: Allergies vancomycin Allergy (Verified 10/29/17 12:44) Rash amlodipine Adverse Reaction (Verified 10/29/17 12:44) Unknown atenolol Adverse Reaction (Verified 10/29/17 12:44) Unknown bupropion HCl [From Wellbutrin] Adverse Reaction (Verified 10/29/17 12:44) Unknown fluoxetine HCl [From Prozac] Adverse Reaction (Verified 10/29/17 12:44) Unknown meloxicam [From Mobic] Adverse Reaction (Verified 10/29/17 12:44) Unknown metoprolol Adverse Reaction (Verified 10/29/17 12:44) Unknown pregabalin [From Lyrica] Adverse Reaction (Verified 10/29/17 12:44) Unknown quetiapine fumarate [From Seroquel] Adverse Reaction (Verified 10/29/17 12:44) Unknown quinapril HCl [From Accupril] Adverse Reaction (Verified 10/29/17 12:44) Unknown risperidone Adverse Reaction (Verified 10/29/17 12:44) Unknown rofecoxib [From Vioxx] Adverse Reaction (Verified 10/29/17 12:44) Unknown sitagliptin phosphate [From Januvia] Adverse Reaction (Verified 10/29/17 12:44) Unknown venlafaxine HCl [From Effexor] Adverse Reaction (Verified 10/29/17 12:44) Unknown Medications to take at Discharge Aspirin [Adult Low Dose Aspirin EC] 81 mg PO DAILY 10/14/15 Duloxetine HCl 60 mg PO DAILY 12/02/14 Ranitidine [Zantac] 150 mg PO BID 12/02/14 Spironolactone [Aldactone] 25 mg PO DAILY 12/02/14 Gabapentin [Neurontin] 300 mg PO BID 08/01/17 Primidone [Mysoline] 50 mg PO QHS 08/01/17 traZODone [Desyrel] 50 mg PO QHS 08/01/17 Nitroglycerin [Nitrostat] 0.4 mg SL PRN PRN 09/09/17 Aripiprazole [Abilify] 10 mg PO QHS 10/21/17 Furosemide [Lasix] 20 mg PO DAILY 10/29/17 Insulin Glargine,Hum.rec.anlog [Basaglar Kwikpen U-100] 10 unit SQ QHS 10/29/17 Nabumetone [Relafen] 500 mg PO DAILY 10/29/17 Baclofen 10 mg PO BID 03/06/18 Hydrocodone/Acetaminophen [Hydrocodone-Acetamin 5-325 mg] 1 tab PO TID PRN PRN 03/06/18 Polyethylene Glycol 3350 17 gm PO PRN PRN 03/06/18 Cephalexin [Keflex] 500 mg PO Q6 #20 capsule 03/08/18 Chlorhexidine Gluc 2% Cloth [(None)] 1 each TOPICAL DAILY #5 pack 03/08/18 Fluconazole [Diflucan] 100 mg PO DAILY #5 tablet 03/08/18 Menthol/Lanolin/Calamine/Znox [Calmoseptine Ointment] 1 applic TOPICAL BID #1 tube 03/08/18 Nystatin Powder [Mycostatin Powder] 1 applic TOPICAL BID #1 bottle 03/08/18 The following prescriptions were given: Cephalexin [Keflex] 500 mg PO Q6 #20 capsule Chlorhexidine Gluc 2% Cloth [(None)] 1 each TOPICAL DAILY #5 pack Fluconazole [Diflucan] 100 mg PO DAILY #5 tablet Menthol/Lanolin/Calamine/Znox [Calmoseptine Ointment] 1 applic TOPICAL BID #1 tube Nystatin Powder [Mycostatin Powder] 1 applic TOPICAL BID #1 bottle Primary Care Physician: Vincent Negro MD [Primary Care Provider] - Please follow up with your Primary Care Physician in: within 2 weeks of discharge Test Results: Test results from this visit will be discussed in further detail at your follow- up appointment, if applicable. Proposed Discharge Date: 03/08/18
--- NOTE | 2018-03-08 10:15 | NURSING ---
assessed pt buttocks for redness. redness appears improved from skin marking. pt going home.
--- NOTE | 2018-03-08 11:25 | CASEMGMT ---
Social Work Note SW placed a call to pt's CM Shanice Lyons at [facility] and left her a message that pt is being discharged home today. Janell Coates STATISTICAL MACHINE MECHANIC, CUPOLA OPERATOR INSULATION
--- NOTE | 2018-03-12 15:29 | CASEMGMT ---
[facility] DC DISPOSITION DC DATE: 03/08/18 DC DISPOSITION: HOME, RESUMPTION OF PASSPORT SERVICES LACE/STRATA: 01/22 ATTEMPTED CALL TO HOME PHONE- NOT SET UP. MESSAGE LEFT ON CELL PHONE FOR CALL BACK IF QUESTIONS RE: DC INSTRUCTIONS, PRESCRIPTIONS OR F/U. A.JOSE F BSN LOLY AC
--- OUTSIDE RECORDS SUMMARY | 2018-05-11 16:09 | XMS RPT_ITS ---
:1960 Author Organization OHIP Support Name Relationship Address Phone D Unavailable Unavailable Unavailable MACE, ADELA Unavailable [address] + [address] [place] [address] KAUFFMAN, VERNILA Unavailable [address] + [place] [address] D Unavailable Unavailable Unavailable MACE, ADELA Unavailable [address] + [address] [place] [address] KAUFFMAN, VERNILA Unavailable [address] + [place] [address] D Unavailable Unavailable Unavailable MACE, ADELA Unavailable [address] + [address] [place] [address] KAUFFMAN, VERNILA Unavailable [address] + [place] [address] D Unavailable Unavailable Unavailable MACE, ADELA Unavailable [address] + [address] [place] [address] KAUFFMAN, VERNILA Unavailable [address] + [place] [address] D Unavailable Unavailable Unavailable MACE, ADELA Unavailable [address] + [address] [place] [address] KAUFFMAN, VERNILA Unavailable [address] + [place] [address] D Unavailable Unavailable Unavailable MACE, ADELA Unavailable [address] + [address] [place] [address] KAUFFMAN, VERNILA Unavailable [address] + [place] [address] D Unavailable Unavailable Unavailable MACE, ADELA Unavailable [address] + [address] [place] [address] KAUFFMAN, VERNILA Unavailable [address] + [place] [address] D Unavailable Unavailable Unavailable MACE, ADELA Unavailable [address] + [address] [place] [address] KAUFFMAN, VERNILA Unavailable [address] + [place] [address] D Unavailable Unavailable Unavailable MACE, ADELA Unavailable [address] + [address] [place] [address] KAUFFMAN, VERNILA Unavailable [address] + [place] [address] D Unavailable Unavailable Unavailable MACE, ADELA Unavailable [address] + [address] [place] [address] KAUFFMAN, VERNILA Unavailable [address] + [place] [address] D Unavailable Unavailable Unavailable MACE, ADELA Unavailable [address] + [address] [place] [address] KAUFFMAN, VERNILA Unavailable [address] + [place] [address] D Unavailable Unavailable Unavailable MACE, ADELA Unavailable [address] + [address] [place] [address] KAUFFMAN, VERNILA Unavailable [address] + [place] [address] D Unavailable Unavailable Unavailable MACE, ADELA Unavailable [address] + [address] [place] [address] KAUFFMAN, VERNILA Unavailable [address] + [place] [address] D Unavailable Unavailable Unavailable MACE, ADELA Unavailable [address] + [address] [place] [address] KAUFFMAN, VERNILA Unavailable [address] + [place] [address] D Unavailable Unavailable Unavailable MACE, ADELA Unavailable [address] + [address] [place] [address] KAUFFMAN, VERNILA Unavailable [address] + [place] [address] D Unavailable Unavailable Unavailable MACE, ADELA Unavailable [address] + [address] [place] [address] KAUFFMAN, VERNILA Unavailable [address] + [place] [address] D Unavailable Unavailable Unavailable MACE, ADELA Unavailable [address] + [address] [place] [address] KAUFFMAN, VERNILA Unavailable [address] + [place] [address] D Unavailable Unavailable Unavailable MACE, ADELA Unavailable [address] + [address] [place] [address] KAUFFMAN, VERNILA Unavailable [address] + [place] [address] D Unavailable Unavailable Unavailable MACE, ADELA Unavailable [address] + [address] [place] [address] KAUFFMAN, VERNILA Unavailable [address] + [place] [address] D Unavailable Unavailable Unavailable MACE, ADELA Unavailable [address] + [address] [place] [address] KAUFFMAN, VERNILA Unavailable [address] + [place] [address] D Unavailable Unavailable Unavailable MACE, ADELA Unavailable [address] + [address] [place] [address] KAUFFMAN, VERNILA Unavailable [address] + [place] [address] Mace, Adela Unavailable Unavailable + Kauffman, Vernila Unavailable Unavailable + Mace, Adela Unavailable Unavailable + Kauffman, Vernila Unavailable Unavailable + Mace, Adela Unavailable Unavailable + Kauffman, Vernila Unavailable Unavailable + Mace, Adela Unavailable Unavailable + Kauffman, Vernila Unavailable Unavailable + Mace, Adela Unavailable Unavailable + Kauffman, Vernila Unavailable Unavailable + Care Team Providers Name Role Phone SHORTY ELIZONDO Attending Unavailable SHORTY ELIZONDO Referring Unavailable Vincent Herbert MD Primary Care Unavailable Saba Pacheco Attending Unavailable Saba Pacheco Referring Unavailable Piedad, Vincent Primary Care Unavailable Sementi, Jenn Admitting Unavailable Paintsil, Stafford Attending Unavailable Sementi, Jenn Referring Unavailable [facility] Care Unavailable Paintsil, Stafford Consulting Unavailable Deya, Isaias Admitting Unavailable Paintsil, Stafford Attending Unavailable [facility] Care Unavailable Melba, Michele Consulting Unavailable Paintsil, Stafford Consulting Unavailable Sementi, Jenn Admitting Unavailable Paintsil, Stafford Attending Unavailable Sementi, Jenn Referring Unavailable [facility] Unavailable Paintsil, Stafford Consulting Unavailable Sementi, Jenn Admitting Unavailable Sementi, Jenn Attending Unavailable Sementi, Jenn Referring Unavailable [facility] Unavailable Sementi, Jenn Consulting Unavailable [facility] Unavailable Sementi, Jenn Admitting Unavailable Sementi, Jenn Referring Unavailable Paintsil, Stafford Attending Unavailable Deya, Isaias Admitting Unavailable [facility] Unavailable Deya, Isaias Consulting Unavailable White, Gudelia Attending Unavailable [facility] Unavailable Deya, Isaias Admitting Unavailable Paintsil, Stafford Attending Unavailable Melba, Michele Consulting Unavailable [facility] Unavailable Jopperi, Zane Admitting Unavailable Paintsil, Stafford Attending Unavailable [facility] Unavailable White, Gudelia Admitting Unavailable Koram, Rosa Isela Becky Attending Unavailable White, Gudelia Admitting Unavailable [facility] Unavailable Melba, Michele Consulting Unavailable Ashelfah, Ghasem Attending Unavailable Ashelfah, Ghasem Consulting Unavailable White, Gudelia Admitting Unavailable [facility] Unavailable Melba, Michele Consulting Unavailable Ashelfah, Ghasem Attending Unavailable Ashelfah, Ghasem Consulting Unavailable White, Gudelia Admitting Unavailable White, Gudelia Attending Unavailable [facility] Unavailable White, Gudelia Consulting Unavailable [facility] Unavailable White, Gudelia Admitting Unavailable Ashelfah, Ghasem Attending Unavailable Melba, Michele Consulting Unavailable Jopperi, Zane Admitting Unavailable Paintsil, Stafford Attending Unavailable [facility] Unavailable Paintsil, Stafford Consulting Unavailable Jopperi, Zane Attending Unavailable [facility] Unavailable Koram, Rosa Isela Becky Attending Unavailable White, Gudelia Admitting Unavailable Koram, Rosa Isela Becky Attending Unavailable Piedad, Vincent Primary Care Unavailable Koram, Rosa Isela Becky Consulting Unavailable White, Gudelia Admitting Unavailable White, Gudelia Attending Unavailable [place], Vincent Primary Care Unavailable White, Gudelia Consulting Unavailable Deya, Isaias Admitting Unavailable Paintsil, Stafford Attending Unavailable [place], Vincent Primary Care Unavailable Michele Reilly Consulting Unavailable Paintsil, Stafford Consulting Unavailable Zane Boyer Admitting Unavailable Paintsil, Stafford Attending Unavailable Piedad, Vincent Primary Care Unavailable Paintsil, Stafford Consulting Unavailable UNKNOWN, PROVIDER Attending Unavailable LISHNEVSKZohreh, JUAN Referring Unavailable UNKNOWN, PROVIDER Primary Care Unavailable UNKNOWN, PROVIDER Attending Unavailable LISHNEVSKZohreh, JUAN Referring Unavailable UNKNOWN, PROVIDER Primary Care Unavailable Lindsay Mtz Attending Unavailable LISHNEVSKZohreh, JUAN Referring Unavailable UNKNOWN, PROVIDER Primary Care Unavailable Hammad Weir Attending Unavailable LISHNEVSKZohreh, JUAN Referring Unavailable UNKNOWN, PROVIDER Primary Care Unavailable Hammad Weir Attending Unavailable LISJENN, JUAN Referring Unavailable UNKNOWN, PROVIDER Primary Care Unavailable Piedad, Vincent Alfredo Attending Unavailable [place], Vincent Alfredo Attending Unavailable PIEDAD, VINCENT Alfredo Attending Unavailable SMITHA WILSON Attending Unavailable PIEDAD, VINCENT Alfredo Referring Unavailable SMITHA WILSON Referring Unavailable SHORTY ELIZONDO Attending Unavailable SHORTY ELIZONDO Referring Unavailable PIEDAD, VINCENT Alfredo Referring Unavailable PIEDAD, VINCENT Alfredo Referring Unavailable PIEDAD, VINCENT Alfredo Referring Unavailable PIEDAD, VINCENT Alfredo Attending Unavailable PIEDAD, VINCENT Alfredo Referring Unavailable PIEDAD, VINCENT Alfredo Referring Unavailable Sanjay ABBASI (CARLOS) Attending Unavailable PIEDAD, VINCENT Alfredo Referring Unavailable PIEDAD, VINCENT Alfredo Referring Unavailable PIEDAD, VINCENT Alfredo Attending Unavailable PIEDAD, VINCENT Alfredo Referring Unavailable PIEDAD, VINCENT Alfredo Referring Unavailable WINNIE PARK (FILAMENT WELDER) Attending Unavailable PIEDADVINCENT Brito Attending Unavailable PIEDAD, VINCENT Alfredo Referring Unavailable GORTY, ESPERANZA A Attending Unavailable NOHEMY, KATIE R Referring Unavailable MICAELA TATE (RD) Attending Unavailable NOHEMY, KATIE R Referring Unavailable GORTY, ESPERANZA A Referring Unavailable PIEDAD, VINCENT Alfredo Attending Unavailable PIEDAD, VINCENT Alfredo Referring Unavailable PIEDAD, VINCENT Alfredo Referring Unavailable PIEDAD, VINCENT Alfredo Attending Unavailable Sanjay ABBASI (KIA[facility]) Attending Unavailable Sanjay ABBASI (KIAHC) Referring Unavailable NOHEMY, KATIE R Attending Unavailable NOHEMY, KATIE R Referring Unavailable DAIJA WARD (RD) Attending Unavailable Sanjay ABBASI (PA-C) Attending Unavailable VINCENT HERBERT Referring Unavailable KATIE SLATER Referring Unavailable KATIE SLATER Referring Unavailable VINCENT HERBERT Referring Unavailable VINCENT HERBERT Referring Unavailable DAMASO MUNIZ (PHD) Referring Unavailable VINCENT HERBERT Attending Unavailable DAMASO MUNIZ (PHD) Referring Unavailable JOHNSON ESCOBEDO (RD) Attending Unavailable PROBLEMS PROBLEMS DATE TYPE CONDITION / CODE ATTENDING STATUS SOURCE 02/07/2018 Unknown F11.20 - Opioid Basali, Ayman Active [facility] dependence, Community uncomplicated / Hospital F11.20(ICD-10) Repository 01/26/2018 Active Urinary tract NA Active [facility] infection, site not [facility] specified / [place] N39.0(ICD-10) Repository 08/12/2005 Active Essential (primary) NA Active [facility] hypertension / [facility] Main I10(ICD-10) [place] Repository 12/17/2017 Active Abnormal weight gain NA Active [facility] / R63.5(ICD-10) Clinic Main [place] Repository 12/17/2017 Active Body mass index (bmi) NA Active [facility] 70 or greater, adult Clinic Main / Z68.45(ICD-10) [place] Repository 12/17/2017 Active Gastro-esophageal NA Active [facility] reflux disease [facility] without esophagitis / [place] K21.9(ICD-10) Repository 12/17/2017 Active Snoring / NA Active [facility] R06.83(ICD-10) Clinic Main [place] Repository 12/17/2017 Active Other fatigue / NA Active [facility] R53.83(ICD-10) Clinic Main [place] Repository 12/17/2017 Active Hypersomnia, NA Active [facility] unspecified / [facility] G47.10(ICD-10) [place] Repository 12/17/2017 Active Other hypersomnia / NA Active [facility] G47.19(ICD-10) Clinic Main [place] Repository 11/26/2017 Admitting Yaz / Vincent Herbert Active [facility] Medical diagnosis UNK(Unknown) [facility] Repository 11/27/2017 Unknown R07.9 - Chest pain, Koram, Rosa Isela Active [facility] unspecified / [facility] Community R07.9(ICD-10) Hospital Repository 10/20/2017 Active Type 2 diabetes NA Active [facility] mellitus without Clinic [facility] complications / [place] E11.9(ICD-10) Repository 09/17/2017 Active Umbilical hernia Sanjay ABBASI Active [facility] without obstruction ANGELINE (CARLOS) Clinic Main or gangrene / [place] K42.9(ICD-10) Repository 09/17/2017 Active Liver disease, Sanjay ABBASI Active [facility] unspecified / ANGELINE (CARLOS) Clinic Main K76.9(ICD-10) [place] Repository 08/10/2017 Active Cellulitis of buttock NA Active [facility] / L03.317(ICD-10) Clinic Main [place] Repository 08/08/2017 Unknown A41.9 - Sepsis, Paintsil, Stafford Active [facility] unspecified organism Community / A41.9(ICD-10) Hospital Repository 07/25/2017 Active Abnormal levels of NA Active [facility] other serum enzymes / [facility] R74.8(ICD-10) [place] Repository 12/10/2009 Active Supraventricular NA Active [facility] tachycardia / [facility] I47.1(ICD-10) [place] Repository 07/20/2017 Active Type 2 diabetes NA Active [facility] mellitus with [facility] diabetic [place] polyneuropathy / Repository E11.42(ICD-10) 07/20/2017 Active Personal history of NA Active [facility] other endocrine, [facility] nutritional and [place] metabolic disease / Repository Z86.39(ICD-10) 07/03/2017 Active Hallux valgus NA Active [facility] (acquired), right Clinic [facility] foot / M20.11(ICD-10) [place] Repository 07/03/2017 Active Unknown / TESTRAKE, Active [facility] UNK(Unknown) SMITHA [facility] [place] Repository 05/24/2017 Admitting Abnormal levels of Ahmed, Arif Active [facility] Diagnosis other serum enzymes / System R74.8(ICD-10) Repository 05/21/2017 Admitting Type 2 diabetes Mtz, Active [facility] Diagnosis mellitus without [facility] complications / Repository E11.9(ICD-10) 05/21/2017 Admitting Other elevated white Mtz, Active [facility] Diagnosis blood cell count / [facility] D72.828(ICD-10) Repository 03/19/2017 Admitting Supraventricular Unknown Active [facility] Diagnosis tachycardia / System I47.1(ICD-10) Repository 03/19/2017 Admitting Type 2 diabetes Unknown Active [facility] Diagnosis mellitus with System diabetic neuropathy, Repository unsp / E11.40(ICD-10) PROCEDURES PROCEDURES No Procedure Records FoundRESULTS RESULTS PROGRESS Observed: 03/14/2018 Status: COMPLETED Source: [facility] 10:17 AM [facility] [place] REPOSITORY [facility] ID: [id number] Author: Johnson Escobedo Service: (none) Author Type: Registered Dietitian Type: Progress Notes Filed: 03/14/2018 10:49 AM Note Text: Nutritional Therapy Re-Assessment PAIN: Is the patient having any pain that is interfering with oral / enteral intake? No 0 on a scale of 0 to 10 PROGRESS: Nutrition Intervention (date of last encounter *01/16/2018: Modify type and amount of food and beverage ? 1. Continue the partial liquid protein plan - - met Breakfast: Protein shake and fruit Lunch: Protein shake and fruit Dinner: 4 oz lean meat/fish, vegetables, fruit and up to 1c starch/whole grains Snack: < 150 calories 1x per day (should contain protein) 2. Fluids: At least 64 oz per day no carbonation, no caffeine, no calories - - met 3. Continue to take your Vitamin D - - met 4. Exercise: Minimum 150 minutes per week - - partially met ? Pre-Op Goal Weight: 330 pounds, per Dr. Slater CHANGES IN TREATMENT: Patient met goal(s): Yes Actions to implement interventions: Diet History: Breakfast - slimfast advanced. Apples Lunch - Slimfast advanced Snack - 9 am - chicken with gold triscuit (4) Dinner - chicken or burger (90%) lean 4 ounces, peas and green beans or carrots ; rice DM2 - 10 years; basaglar 10 units at night Beverages - water, on the go sugar free packets, decaf coffee Vitamins/Supplements - *Completed 8 weeks Vit D repletion 50,000 IU Exercise: CLINICAL IMPRESSIONS: excellent REVISIONS IN DIAGNOSIS: Diagnosis: has not changed. Allergies: Lyrica [Pregabalin]; Accupril [Quinapril Hcl]; Amlodipine; Atenolol; Atorvastatin; Effexor [Venlafaxine Hcl]; Januvia [Sitagliptin]; Metoprolol; Mobic [Meloxicam]; Prozac [Fluoxetine Hcl]; Risperidone; Seroquel [Quetiapine Fumarate]; Vancomycin; Vioxx [Rofecoxib]; Wellbutrin [Bupropion Hcl] Medications: Current Outpatient Prescriptions: levoFLOXacin (LEVAQUIN) 500 mg tablet Take 1 tablet by mouth once daily for 10 days. Disp: 10 tablet Rfl: 0 baclofen (LIORESAL) 10 mg tablet Take 1 tablet by mouth twice daily. Disp: 60 tablet Rfl: 1 insulin glargine (BASAGLAR KWIKPEN U-100 INSULIN) 100 unit/mL (3 mL) inpn Inject 10 Units subcutaneously daily at bedtime. May increase dose by 1 unit every 3 days if average FBG >130 Disp: Rfl: 0 gabapentin (NEURONTIN) 300 mg capsule Take 1 capsule by mouth twice daily for 90 days. Disp: 60 capsule Rfl: 2 nabumetone (RELAFEN) 500 mg tablet Take 1 tablet by mouth once daily. TAKE WITH FOOD Disp: 30 tablet Rfl: 2 cholecalciferol, Vitamin D3, (VITAMIN D3) 50,000 unit cap capsule Take 1 capsule by mouth once each week. Disp: Rfl: 0 furosemide (LASIX) 0.5 mg/mL syrg DAILY Disp: Rfl: blood sugar diagnostic (BLOOD GLUCOSE TEST) test strip Test blood sugars up to 4 times daily as directed. Dx: Type 2 DM - Controlled E11.9 Insulin: No Disp: 100 Strip Rfl: 11 cholecalciferol, vitamin D3, 50,000 unit tab Take 1 tablet by mouth once each week for 8 doses. Disp: 4 tablet Rfl: 1 potassium chloride ER (K-DUR, KLOR-CON) 10 mEq tablet Take 1 tablet by mouth once daily. Disp: 60 tablet Rfl: 5 polyethylene glycol 3350 (MIRALAX, GLYCOLAX) 17 gram/dose powder Take 17 g by mouth once daily. Disp: 1 Bottle Rfl: 11 Blood-Glucose Meter monitoring kit Glucose Meter of Choice - Kit - Dx: Type 2 DM - Controlled E11.9 Use twice daily as directed Disp: 1 Each Rfl: 0 nystatin (MYCOSTATIN) cream Apply 1 application to affected area twice daily. Disp: 1 Tube Rfl: 1 spironolactone (ALDACTONE) 25 mg tablet Take 1 tablet by mouth once daily. Disp: 90 tablet Rfl: 3 ranitidine (ZANTAC) 150 mg tablet Take 1 tablet by mouth twice daily. Disp: 180 tablet Rfl: 3 furosemide (LASIX) 20 mg tablet Take 1 tablet by mouth once daily. Disp: 90 tablet Rfl: 3 DULoxetine (CYMBALTA) 60 mg capsule Take 1 capsule by mouth once daily. Disp: 90 capsule Rfl: 3 primidone (MYSOLINE) 50 mg tablet TAKE ONE TABLET ONCE DAILY AT BEDTIME Disp: 30 tablet Rfl: 11 Insulin [place], Disposable, (BD ULTRA-FINE MADI PEN NEEDLE) 32 gauge x ndle Use one needle for each dose. 1/day. Disp: 100 Each Rfl: 11 HYDROcodone-acetaminophen (NORCO) 5-325 mg per tablet TAKE ONE TABLET TWICE DAILY Disp: Rfl: lancets (TRUEPLUS LANCETS) 30 gauge misc Test twice daily Dx: 250.02 Disp: 200 Each Rfl: 4 traZODone (DESYREL) 50 mg tablet Take 0.5 tablets by mouth daily at bedtime. Disp: 30 tablet Rfl: 5 ARIPiprazole (ABILIFY) 10 mg tablet Take 1 tablet by mouth once daily. Disp: 30 tablet Rfl: 5 nitroglycerin sublingual (NITROQUICK) 0.4 mg SL tablet Dissolve 1 tablet under the tongue as needed. FOR CHEST PAIN. IF NO RELIEF CALL 911 Disp: 25 tablet Rfl: 6 aspirin, enteric coated (ECOTRIN LOW STRENGTH) 81 mg EC tablet Take 1 tablet by mouth once daily. Disp: Rfl: 0 No current facility-administered medications for this visit. (currently taking) Anthropometrics: Height: Last 1 Encounter Ht Readings: Date: Ht: 03/14/2018 0 cm (0') Current weight: Last 1 Encounter Wt Readings: Date: Wt: 03/14/2018 155.4 kg (342 lb 8 oz) Body mass index is 64.58 kg/m?. RMR can't be calculated - Height unrecorded. NUTRITION ASSESSMENT: Malnutrition Screening Significant unintentional weight loss? No Eating less than 75% of usual intake for more than 2 weeks? No RECOMMENDED MALNUTRITION DIAGNOSIS: NO MALNUTRITION IDENTIFIED Educational materials provided: none this visit - [employer] application READINESS TO LEARN Cognitive ability: Alert and oriented Motivation to learn: Eager Family support: High - Very involved in pt care - sisters supportive Instruction provided to: Patient Patient learns best by: Individual Instruction Factors affecting learning: None Physical limitations affecting learning: Fatigue Likelihood of Adherence: High Patient presents with 18 pound weight loss since last session (360 lbs). Net weight loss 47 lbs x 3 months following 1300 calorie partial liquid protein plan. Excellent adherence to meal plan. Exercises within ability, from a chair, but admits being unsure of how to exercise. Walking as tolerated (very limited due to physical limitations). Fluids remain calorie free. History of DM2 with significant improvement in HgbA1c over 3 months during implementation of current meal plan. lantus reduced to 10 units/day. Good progress on goals. Approaching preop goal weight established by Dr. Slater (330 lbs). Results for KATHLEEN KHAN V ( ) as of 03/14/2018 10:21 Ref. Range 10/20/2017 12:03 12/17/2017 16:29 01/26/2018 07:55 Hemoglobin A1C Latest Ref Range: 4.3 - 5.6 % 6.8 (H) 5.7 (H) Estimated Average Glucose Latest Units: mg/dL 148 117 TSH Latest Ref Range: 0.400 - 5.500 uU/mL 2.070 Vitamin D 25 Hydroxy Latest Ref Range: 31.0 - 80.0 ng/mL 25.9 (L) Nutrition Diagnosis: Overweight Obesity, related to; food/nutrition - related knowledge deficit, as evidenced by BMI above normative standard for age and gender. Nutrition Intervention 03/14/2018: Modify type and amount of intake at meals and snacks 1. Continue to walk as tolerated. Start to participate in 20-25 minutes chair fitness exercise. Follow [employer] 10 DVD's in the series (on U-tube) 2. Continue to drink 64 ounces/day - continue water, sugar free drink mix and decaf coffee is fine 3. Continue current meal plan Breakfast: Protein shake and fruit Lunch: Protein shake and fruit Dinner: 4 oz lean meat/fish, vegetables, fruit and up to 1c starch/whole grains Snack: < 150 calories 1x per day (should contain protein) 4. For after surgery - fill out the application for [employer]. Pre-op goal weight per Dr. Slater 330# Nutrition Monitoring AND Evaluation: continued weight loss of 2-4 pounds in the next 3 weeks Criteria: weight check Need for Follow up: 1 month - Apr 02 - please schedule 10:30- 11:00 am okay per Johnson Referred/Supervised by: Nohemy/Chance MNT Billing Type: Re-assess/15 min 3 units SIGNATURE: Johnson Escobedo RD PATIENT NAME: Kathleen Khan DATE: March 14, 2018 TIME: 10:17 AM PAGER: [phone] CNCNPATED Observed: 03/14/2018 Status: COMPLETED Source: [facility] 8:30 AM [facility] REPOSITORY Education (GENBMI) BILL,KATHLEEN Phillips ([id number]) 1960 F Date Time Provider Department 03/14/18 8:30 AM JOHNSON ESCOBEDO (BI[facility]) [facility] Reason for Visit: Patient Education [91] Reassessment [674] Progress Notes: Johnson Escobedo RD 03/14/2018 10:49 AM Signed Nutritional Therapy Re-Assessment PAIN: Is the patient having any pain that is interfering with oral / enteral intake? No 0 on a scale of 0 to 10 PROGRESS: Nutrition Intervention (date of last encounter *01/16/2018: Modify type and amount of food and beverage ? 1. Continue the partial liquid protein plan - - met Breakfast: Protein shake and fruit Lunch: Protein shake and fruit Dinner: 4 oz lean meat/fish, vegetables, fruit and up to 1c starch/whole grains Snack: < 150 calories 1x per day (should contain protein) 2. Fluids: At least 64 oz per day no carbonation, no caffeine, no calories - - met 3. Continue to take your Vitamin D - - met 4. Exercise: Minimum 150 minutes per week - - partially met ? Pre-Op Goal Weight: 330 pounds, per Dr. Slater CHANGES IN TREATMENT: Patient met goal(s): Yes Actions to implement interventions: Diet History: Breakfast - slimfast advanced. Apples Lunch - Slimfast advanced Snack - 9 am - chicken with gold triscuit (4) Dinner - chicken or burger (90%) lean 4 ounces, peas and green beans or carrots ; rice DM2 - 10 years; basaglar 10 units at night Beverages - water, on the go sugar free packets, decaf coffee Vitamins/Supplements - *Completed 8 weeks Vit D repletion 50,000 IU Exercise: CLINICAL IMPRESSIONS: excellent REVISIONS IN DIAGNOSIS: Diagnosis: has not changed. Allergies: Lyrica [Pregabalin]; Accupril [Quinapril Hcl]; Amlodipine; Atenolol; Atorvastatin; Effexor [Venlafaxine Hcl]; Januvia [Sitagliptin]; Metoprolol; Mobic [Meloxicam]; Prozac [Fluoxetine Hcl]; Risperidone; Seroquel [Quetiapine Fumarate]; Vancomycin; Vioxx [Rofecoxib]; Wellbutrin [Bupropion Hcl] Medications: Current Outpatient Prescriptions: levoFLOXacin (LEVAQUIN) 500 mg tablet Take 1 tablet by mouth once daily for 10 days. Disp: 10 tablet Rfl: 0 baclofen (LIORESAL) 10 mg tablet Take 1 tablet by mouth twice daily. Disp: 60 tablet Rfl: 1 insulin glargine (BASAGLAR KWIKPEN U-100 INSULIN) 100 unit/mL (3 mL) inpn Inject 10 Units subcutaneously daily at bedtime. May increase dose by 1 unit every 3 days if average FBG >130 Disp: Rfl: 0 gabapentin (NEURONTIN) 300 mg capsule Take 1 capsule by mouth twice daily for 90 days. Disp: 60 capsule Rfl: 2 nabumetone (RELAFEN) 500 mg tablet Take 1 tablet by mouth once daily. TAKE WITH FOOD Disp: 30 tablet Rfl: 2 cholecalciferol, Vitamin D3, (VITAMIN D3) 50,000 unit cap capsule Take 1 capsule by mouth once each week. Disp: Rfl: 0 furosemide (LASIX) 0.5 mg/mL syrg DAILY Disp: Rfl: blood sugar diagnostic (BLOOD GLUCOSE TEST) test strip Test blood sugars up to 4 times daily as directed. Dx: Type 2 DM - Controlled E11.9 Insulin: No Disp: 100 Strip Rfl: 11 cholecalciferol, vitamin D3, 50,000 unit tab Take 1 tablet by mouth once each week for 8 doses. Disp: 4 tablet Rfl: 1 potassium chloride ER (K-DUR, KLOR-CON) 10 mEq tablet Take 1 tablet by mouth once daily. Disp: 60 tablet Rfl: 5 polyethylene glycol 3350 (MIRALAX, GLYCOLAX) 17 gram/dose powder Take 17 g by mouth once daily. Disp: 1 Bottle Rfl: 11 Blood-Glucose Meter monitoring kit Glucose Meter of Choice - Kit - Dx: Type 2 DM - Controlled E11.9 Use twice daily as directed Disp: 1 Each Rfl: 0 nystatin (MYCOSTATIN) cream Apply 1 application to affected area twice daily. Disp: 1 Tube Rfl: 1 spironolactone (ALDACTONE) 25 mg tablet Take 1 tablet by mouth once daily. Disp: 90 tablet Rfl: 3 ranitidine (ZANTAC) 150 mg tablet Take 1 tablet by mouth twice daily. Disp: 180 tablet Rfl: 3 furosemide (LASIX) 20 mg tablet Take 1 tablet by mouth once daily. Disp: 90 tablet Rfl: 3 DULoxetine (CYMBALTA) 60 mg capsule Take 1 capsule by mouth once daily. Disp: 90 capsule Rfl: 3 primidone (MYSOLINE) 50 mg tablet TAKE ONE TABLET ONCE DAILY AT BEDTIME Disp: 30 tablet Rfl: 11 Insulin Hamlin, Disposable, (BD ULTRA-FINE MADI PEN NEEDLE) 32 gauge x 5/32 ndle Use one needle for each dose. 1/day. Disp: 100 Each Rfl: 11 HYDROcodone-acetaminophen (NORCO) 5-325 mg per tablet TAKE ONE TABLET TWICE DAILY Disp: Rfl: lancets (TRUEPLUS LANCETS) 30 gauge misc Test twice daily Dx: 250.02 Disp: 200 Each Rfl: 4 traZODone (DESYREL) 50 mg tablet Take 0.5 tablets by mouth daily at bedtime. Disp: 30 tablet Rfl: 5 ARIPiprazole (ABILIFY) 10 mg tablet Take 1 tablet by mouth once daily. Disp: 30 tablet Rfl: 5 nitroglycerin sublingual (NITROQUICK) 0.4 mg SL tablet Dissolve 1 tablet under the tongue as needed. FOR CHEST PAIN. IF NO RELIEF CALL 911 Disp: 25 tablet Rfl: 6 aspirin, enteric coated (ECOTRIN LOW STRENGTH) 81 mg EC tablet Take 1 tablet by mouth once daily. Disp: Rfl: 0 No current facility-administered medications for this visit. (currently taking) Anthropometrics: Height: Last 1 Encounter Ht Readings: Date: Ht: 03/14/2018 0 cm (0') Current weight: Last 1 Encounter Wt Readings: Date: Wt: 03/14/2018 155.4 kg (342 lb 8 oz) Body mass index is 64.58 kg/m?. RMR can't be calculated - Height unrecorded. NUTRITION ASSESSMENT: Malnutrition Screening Significant unintentional weight loss? No Eating less than 75% of usual intake for more than 2 weeks? No RECOMMENDED MALNUTRITION DIAGNOSIS: NO MALNUTRITION IDENTIFIED Educational materials provided: none this visit - [facility] application READINESS TO LEARN Cognitive ability: Alert and oriented Motivation to learn: Eager Family support: High - Very involved in pt care - sisters supportive Instruction provided to: Patient Patient learns best by: Individual Instruction Factors affecting learning: None Physical limitations affecting learning: Fatigue Likelihood of Adherence: High Patient presents with 18 pound weight loss since last session (360 lbs). Net weight loss 47 lbs x 3 months following 1300 calorie partial liquid protein plan. Excellent adherence to meal plan. Exercises within ability, from a chair, but admits being unsure of how to exercise. Walking as tolerated (very limited due to physical limitations). Fluids remain calorie free. History of DM2 with significant improvement in HgbA1c over 3 months during implementation of current meal plan. lantus reduced to 10 units/day. Good progress on goals. Approaching preop goal weight established by Dr. Slater (330 lbs). Results for KATHLEEN KHAN V ( ) as of 03/14/2018 10:21 Ref. Range 10/20/2017 12:03 12/17/2017 16:29 01/26/2018 07:55 Hemoglobin A1C Latest Ref Range: 4.3 - 5.6 % 6.8 (H) 5.7 (H) Estimated Average Glucose Latest Units: mg/dL 148 117 TSH Latest Ref Range: 0.400 - 5.500 uU/mL 2.070 Vitamin D 25 Hydroxy Latest Ref Range: 31.0 - 80.0 ng/mL 25.9 (L) Nutrition Diagnosis: Overweight Obesity, related to; food/nutrition - related knowledge deficit, as evidenced by BMI above normative standard for age and gender. Nutrition Intervention 03/14/2018: Modify type and amount of intake at meals and snacks 1. Continue to walk as tolerated. Start to participate in 20-25 minutes chair fitness exercise. Follow [employer] - [employer] 10 DVD's in the series (on U-tube) 2. Continue to drink 64 ounces/day - continue water, sugar free drink mix and decaf coffee is fine 3. Continue current meal plan Breakfast: Protein shake and fruit Lunch: Protein shake and fruit Dinner: 4 oz lean meat/fish, vegetables, fruit and up to 1c starch/whole grains Snack: < 150 calories 1x per day (should contain protein) 4. For after surgery - fill out the application for [facility]. Pre-op goal weight per Dr. Slater 330# Nutrition Monitoring AND Evaluation: continued weight loss of 2-4 pounds in the next 3 weeks Criteria: weight check Need for Follow up: 1 month - Apr 02 - please schedule 10:30- 11:00 am okay per Johnson Referred/Supervised by: Nohemy/Chance SUGGS Billing Type: Re-assess/15 min 3 units SIGNATURE: Johnson Escobedo RD PATIENT NAME: Kathleen Khan DATE: March 14, 2018 TIME: 10:17 AM PAGER: [phone] Primary Visit Diagnosis:Diabetes mellitus type 2 in obese (HCC) [E11.69, E66.9] Other Visit Diagnoses:Dietary counseling and surveillance [Z71.3] BMI 60.0-69.9, adult (HCC) [Z68.44] During your visit today, we recorded the following information about you: Weight 155.4 kg Allergies As of Date: 03/14/2018 Noted Allergy Reaction LYRICA (PREGABALIN) 08/05/2012 10 - Anaphylaxis Comments: Not sure if accurate. Can take gabapentin. Patient is unsure of reaction. ACCUPRIL (QUINAPRIL HCL) 08/12/2005 5 - Intolerance Comments: dizziness AMLODIPINE 04/24/2008 7 - Swelling Comments: Leg edema ATENOLOL 09/29/2010 7 - Swelling ATORVASTATIN 11/01/2017 5 - Intolerance Comments: Muscle cramps and weakness EFFEXOR (VENLAFAXINE HCL) 09/22/2005 Comments: swelling high blood pressure JANUVIA (SITAGLIPTIN) 09/21/2011 8 - GI Upset 14 - Other: See Comments Comments: Patient states she couldn't eat METOPROLOL 09/21/2009 7 - Swelling MOBIC (MELOXICAM) 08/12/2005 8 - GI Upset PROZAC (FLUOXETINE HCL) 08/12/2005 5 - Intolerance Comments: tremor RISPERIDONE 12/22/2009 1 - Mental Status Change SEROQUEL (QUETIAPINE FUMARATE) 10/05/2006 Comments: hypertension,swelling VANCOMYCIN 08/10/2017 9 - Itching 14 - Other: See Comments Comments: red all over VIOXX (ROFECOXIB) 08/12/2005 8 - GI Upset WELLBUTRIN (BUPROPION HCL) 08/12/2005 5 - Intolerance Comments: nightmares Date Reviewed: 03/14/2018 Reviewed by: Johnson Richardson) Boni - Fully Assessed Prescriptions as of 03/14/2018 Sig: LEVOFLOXACIN 500 MG TABLET Take 1 tablet by mouth once d* BACLOFEN 10 MG TABLET Take 1 tablet by mouth twice * INSULIN GLARGINE (U-100) 100 * Inject 10 Units subcutaneousl* GABAPENTIN 300 MG CAPSULE Take 1 capsule by mouth twice* NABUMETONE 500 MG TABLET Take 1 tablet by mouth once d* CHOLECALCIFEROL (VITAMIN D3) * Take 1 capsule by mouth once * FUROSEMIDE 0.5 MG/ML PEDIATRI* DAILY BLOOD SUGAR DIAGNOSTIC STRIPS Test blood sugars up to 4 tiara* CHOLECALCIFEROL (VITAMIN D3) * Take 1 tablet by mouth once e* POTASSIUM CHLORIDE ER 10 MEQ * Take 1 tablet by mouth once d* POLYETHYLENE GLYCOL 3350 17 G* Take 17 g by mouth once daily. BLOOD-GLUCOSE METER KIT Glucose Meter of Choice - Kit* NYSTATIN 100,000 UNIT/GRAM TO* Apply 1 application to affect* SPIRONOLACTONE 25 MG TABLET Take 1 tablet by mouth once d* RANITIDINE 150 MG TABLET Take 1 tablet by mouth twice * FUROSEMIDE 20 MG TABLET Take 1 tablet by mouth once d* DULOXETINE 60 MG CAPSULE,JODI* Take 1 capsule by mouth once * PRIMIDONE 50 MG TABLET TAKE ONE TABLET ONCE DAILY AT* PEN NEEDLE, DIABETIC 32 GAUGE* Use one needle for each dose.* HYDROCODONE 5 MG-ACETAMINOPHE* TAKE ONE TABLET TWICE DAILY LANCETS 30 GAUGE Test twice daily Dx: 250.02 TRAZODONE 50 MG TABLET Take 0.5 tablets by mouth padmini* ARIPIPRAZOLE 10 MG TABLET Take 1 tablet by mouth once d* NITROGLYCERIN 0.4 MG SUBLINGU* Dissolve 1 tablet under the t* ASPIRIN 81 MG TABLET,DELAYED * Take 1 tablet by mouth once d* Letter Text [facility] [place] [address] [place], [place] [address] March 14, 2018 Kathleen Khan [address] [facility] [address] [facility] Nutrition Intervention 03/14/2018: Modify type and amount of intake at meals and snacks 1. Continue to walk as tolerated. Start to participate in 20-25 minutes chair fitness exercise. [employer] - [employer] 10 DVD's in the series (on U-tube) 2. Continue to drink 64 ounces/day - continue water, sugar free drink mix and decaf coffee is fine 3. Continue current meal plan Breakfast: Protein shake and fruit Lunch: Protein shake and fruit Dinner: 4 oz lean meat/fish, vegetables, fruit and up to 1c starch/whole grains Snack: < 150 calories 1x per day (should contain protein) 4. For after surgery - fill out the application for [employer]. Pre-op goal weight per Dr. Slater 330# Nutrition Monitoring AND Evaluation: continued weight loss of 2-4 pounds in the next 3 weeks Criteria: weight check Need for Follow up: 1 month - Apr 02 - please schedule 10:30- 11:00 am okay per Johnson Escobedo RD Encounter Status:Closed by JOHNSON ESCOBEDO on 03/14/18 PROGRESS Observed: 03/12/2018 Status: COMPLETED Source: [place] 10:04 AM [facility] [place] REPOSITORY [facility] ID: [id number] Author: Sherry Diaz Service: (none) Author Type: Psychologist Type: Progress Notes Filed: 03/13/2018 9:35 AM Note Text: [facility] Bariatric Behavioral Services Progress Note March 12, 2018 [facility]: [facility] BILLING CODE: Goodpaster CPT Code: 05337 Psychotherapy 38-52 minutes Time initiated session: 10:00 AM to 11:00 AM Date of First Session: 01/30/2018 (initial evaluation) Session #: 3 Collateral Parties Present: none. Subjective: Patient reported a difficult past week due to cellulitis and associated hospitalization. She stated that she has a history of sepsis related to cellulitis. Despite illness, patient noted that she was able to continue adherence to dietary and behavioral recommendations. She explained that she chose healthier options (e.g., eggs, turkey griffin, grilled chicken) while hospitalized and did not engage in maladaptive eating patterns. She expressed that she was amazed with self and her ability to achieve goals despite medical complications. She reported that she was unable to complete food diaries. Ms. Khan acknowledged that she was down over the previous week. She rated severity of depressive symptoms as 3/10 (10=worst) and anxiety symptoms as 4/10 (10=worst). She attributed increases in mood symptoms to needing to remain hospitalized. Patient reported coping with increases in emotional distress by socializing more when she returned home. She noted that she visited one of her neighbors who is unable to leave her home. Patient reported several contributors to stress (e.g., lack of sleep, finances, medical conditions) and responses to stress (e.g., muscle tension, overeating, trouble remembering and concentrating, depressed mood). She identified current stress management techniques (e.g., reliance on social support, walking, and listening to gospel music) and discussed ways to increase use of adaptive stress management techniques. ? Intervention Included: 1) Reviewed material from second session of [facility] group 2) Discussed antecedents for binges including emotions such as stress, depression and anger 3) Identified positive coping strategies for stress management 4) Demonstrated diaphragmatic breathing as a stress management technique 5) Discussed cognitive behavorial treatment of weight issues and identified self-defeating vs. coping thoughts. 6) Set S.M.A.R.T. goals for the next week S.M.A.R.T. Goal Session 1: Walking for a total of 45-50 minutes, 3x/week- NOT MET S.M.A.R.T. Goal Session 2: Walking for a total of 45-50 minutes, 3x/week Patient mood is: stable. Affect is: Appropriate. Patient denies any suicidal or homicidal ideation, plan or intent at this time. ? Objective: Patient reported increases in mood symptoms related to recent hospitalization. However, she acknowledged implementation of adaptive coping strategies and continued maintenance of dietary changes. She would benefit from continued [facility] individual sessions. Assessment: Patient's weight at today's visit is 344.3 lbs. BMI = 64.92. Patient has lost 14 lbs since initial session (01/30/2018). Primary Diagnoses:? Major Depressive Disorder, Recurrent, Moderate Anxiety Disorder NOS Binge Eating Disorder, Moderate, in partial remission Psychological Factors Affecting Morbid Obesity Personality Diagnoses:Deferred Global Assessment of Functionin-51 Moderate symptoms or moderate difficulty in social, occupational or school functioning. ? Current Outpatient Prescriptions: levoFLOXacin (LEVAQUIN) 500 mg tablet Take 1 tablet by mouth once daily for 10 days. baclofen (LIORESAL) 10 mg tablet Take 1 tablet by mouth twice daily. insulin glargine (BASAGLAR KWIKPEN U-100 INSULIN) 100 unit/mL (3 mL) inpn Inject 10 Units subcutaneously daily at bedtime. May increase dose by 1 unit every 3 days if average FBG >130 gabapentin (NEURONTIN) 300 mg capsule Take 1 capsule by mouth twice daily for 90 days. nabumetone (RELAFEN) 500 mg tablet Take 1 tablet by mouth once daily. TAKE WITH FOOD cholecalciferol, Vitamin D3, (VITAMIN D3) 50,000 unit cap capsule Take 1 capsule by mouth once each week. furosemide (LASIX) 0.5 mg/mL syrg DAILY blood sugar diagnostic (BLOOD GLUCOSE TEST) test strip Test blood sugars up to 4 times daily as directed. Dx: Type 2 DM - Controlled E11.9 Insulin: No cholecalciferol, vitamin D3, 50,000 unit tab Take 1 tablet by mouth once each week for 8 doses. potassium chloride ER (K-DUR, KLOR-CON) 10 mEq tablet Take 1 tablet by mouth once daily. polyethylene glycol 3350 (MIRALAX, GLYCOLAX) 17 gram/dose powder Take 17 g by mouth once daily. Blood-Glucose Meter monitoring kit Glucose Meter of Choice - Kit - Dx: Type 2 DM - Controlled E11.9 Use twice daily as directed nystatin (MYCOSTATIN) cream Apply 1 application to affected area twice daily. spironolactone (ALDACTONE) 25 mg tablet Take 1 tablet by mouth once daily. ranitidine (ZANTAC) 150 mg tablet Take 1 tablet by mouth twice daily. furosemide (LASIX) 20 mg tablet Take 1 tablet by mouth once daily. DULoxetine (CYMBALTA) 60 mg capsule Take 1 capsule by mouth once daily. primidone (MYSOLINE) 50 mg tablet TAKE ONE TABLET ONCE DAILY AT BEDTIME Insulin Hamlin, Disposable, (BD ULTRA-FINE MADI PEN NEEDLE) 32 gauge x ndle Use one needle for each dose. 1/day. HYDROcodone-acetaminophen (NORCO) 5-325 mg per tablet TAKE ONE TABLET TWICE DAILY lancets (TRUEPLUS LANCETS) 30 gauge misc Test twice daily Dx: 250.02 traZODone (DESYREL) 50 mg tablet Take 0.5 tablets by mouth daily at bedtime. ARIPiprazole (ABILIFY) 10 mg tablet Take 1 tablet by mouth once daily. nitroglycerin sublingual (NITROQUICK) 0.4 mg SL tablet Dissolve 1 tablet under the tongue as needed. FOR CHEST PAIN. IF NO RELIEF CALL 911 aspirin, enteric coated (ECOTRIN LOW STRENGTH) 81 mg EC tablet Take 1 tablet by mouth once daily. No current facility-administered medications for this visit. Medication Changes: No change in medications Plan/Recommendations: 1) REQUIREMENTS FOR COMPLETING BEHAVIORAL HEALTH EVALUATION: *Documentation from current psychiatrist *Establish relationship with a psychologist and provide documentation of this to [facility] psychology ?(To schedule with [facility] Department of Psychiatry and Psychology, call [phone]) *[facility] Group attendance or equivalent individual treatment and [facility] psychology follow-up appointment after completion of group (To schedule with [facility] Binge eating group call [phone]) 2) The patient may benefit from the following during the surgery process: *Ongoing psychotropic medication management by Psychiatrist *Participation in a Weight Loss Surgery support group *Read Preparing for Weight Loss Surgery: Workbook (Treatments That Work) by Gee Magana, Aneudy Vargas, and Gemma Valiente ([employer], 2006) *Follow up with psychology as an inpatient if needed *Follow up with psychology at 1, 3, 6, 12 months and yearly thereafter as an outpatient *Do not use alcohol, tobacco, and street drugs for at least 6 months prior to and after surgery. ? 3) Insurance letter not completed at this time. Patient needs to complete additional preparation as outlined above. 4) PLAN FOR NEXT SESSION: Continue current treatment Number of weeks till next appointment: 1-2 weeks. ? Sherry Diaz, Ph.D., Licensed Esthetician Supervision comments: Reviewed above. Patient presented for second individual [facility] session. She was emotionally distressed due to a recent hospitalization yet refrained from maladaptive eating patterns during this time of heightened stress. I agree with the above impressions and plan. Reviewed in supervision. Recommend patient continue individual [facility] sessions. Damaso Muniz, Ph.D., Psychologist . CNOV Observed: 03/12/2018 Status: COMPLETED Source: [place] 10:00 AM [facility] REPOSITORY Office Visit (PSMN) KATHLEEN KHAN V ([id number]) 1960 F Date Time Provider Department 03/12/18 10:00 AM SHERRY DIAZ) [facility]MN During your visit today, we recorded the following information about you: Weight Height 156.2 kg 1.551 m Sherry Diaz PsyD 03/12/2018 1:51 PM Signed [facility] Bariatric Behavioral Services Progress Note March 12, 2018 [facility]: [facility] BILLING CODE: Goodpastjosiah CPT Code: 06644 Psychotherapy 38-52 minutes Time initiated session: 10:00 AM to 11:00 AM Date of First Session: 01/30/2018 (initial evaluation) Session #: 3 Collateral Parties Present: none. Subjective: Patient reported a difficult past week due to cellulitis and associated hospitalization. She stated that she has a history of sepsis related to cellulitis. Despite illness, patient noted that she was able to continue adherence to dietary and behavioral recommendations. She explained that she chose healthier options (e.g., eggs, turkey griffin, grilled chicken) while hospitalized and did not engage in maladaptive eating patterns. She expressed that she was amazed with self and her ability to achieve goals despite medical complications. She reported that she was unable to complete food diaries. Ms. Khan acknowledged that she was down over the previous week. She rated severity of depressive symptoms as 3/10 (10=worst) and anxiety symptoms as 4/10 (10=worst). She attributed increases in mood symptoms to needing to remain hospitalized. Patient reported coping with increases in emotional distress by socializing more when she returned home. She noted that she visited one of her neighbors who is unable to leave her home. Patient reported several contributors to stress (e.g., lack of sleep, finances, medical conditions) and responses to stress (e.g., muscle tension, overeating, trouble remembering and concentrating, depressed mood). She identified current stress management techniques (e.g., reliance on social support, walking, and listening to gospel music) and discussed ways to increase use of adaptive stress management techniques. ? Intervention Included: 1) Reviewed material from second session of [facility] Start group 2) Discussed antecedents for binges including emotions such as stress, depression and anger 3) Identified positive coping strategies for stress management 4) Demonstrated diaphragmatic breathing as a stress management technique 5) Discussed cognitive behavorial treatment of weight issues and identified self-defeating vs. coping thoughts. 6) Set S.M.A.R.T. goals for the next week S.M.A.R.T. Goal Session 1: Walking for a total of 45-50 minutes, 3x/week- NOT MET S.M.A.R.T. Goal Session 2: Walking for a total of 45-50 minutes, 3x/week Patient mood is: stable. Affect is: Appropriate. Patient denies any suicidal or homicidal ideation, plan or intent at this time. ? Objective: Patient reported increases in mood symptoms related to recent hospitalization. However, she acknowledged implementation of adaptive coping strategies and continued maintenance of dietary changes. She would benefit from continued [facility] individual sessions. Assessment: Patient's weight at today's visit is 344.3 lbs. BMI = 64.92. Patient has lost 14 lbs since initial session (01/30/2018). Primary Diagnoses:? Major Depressive Disorder, Recurrent, Moderate Anxiety Disorder NOS Binge Eating Disorder, Moderate, in partial remission Psychological Factors Affecting Morbid Obesity Personality Diagnoses:Deferred Global Assessment of Functionin-51 Moderate symptoms or moderate difficulty in social, occupational or school functioning. ? Current Outpatient Prescriptions: levoFLOXacin (LEVAQUIN) 500 mg tablet Take 1 tablet by mouth once daily for 10 days. baclofen (LIORESAL) 10 mg tablet Take 1 tablet by mouth twice daily. insulin glargine (BASAGLAR KWIKPEN U-100 INSULIN) 100 unit/mL (3 mL) inpn Inject 10 Units subcutaneously daily at bedtime. May increase dose by 1 unit every 3 days if average FBG >130 gabapentin (NEURONTIN) 300 mg capsule Take 1 capsule by mouth twice daily for 90 days. nabumetone (RELAFEN) 500 mg tablet Take 1 tablet by mouth once daily. TAKE WITH FOOD cholecalciferol, Vitamin D3, (VITAMIN D3) 50,000 unit cap capsule Take 1 capsule by mouth once each week. furosemide (LASIX) 0.5 mg/mL syrg DAILY blood sugar diagnostic (BLOOD GLUCOSE TEST) test strip Test blood sugars up to 4 times daily as directed. Dx: Type 2 DM - Controlled E11.9 Insulin: No cholecalciferol, vitamin D3, 50,000 unit tab Take 1 tablet by mouth once each week for 8 doses. potassium chloride ER (K-DUR, KLOR-CON) 10 mEq tablet Take 1 tablet by mouth once daily. polyethylene glycol 3350 (MIRALAX, GLYCOLAX) 17 gram/dose powder Take 17 g by mouth once daily. Blood-Glucose Meter monitoring kit Glucose Meter of Choice - Kit - Dx: Type 2 DM - Controlled E11.9 Use twice daily as directed nystatin (MYCOSTATIN) cream Apply 1 application to affected area twice daily. spironolactone (ALDACTONE) 25 mg tablet Take 1 tablet by mouth once daily. ranitidine (ZANTAC) 150 mg tablet Take 1 tablet by mouth twice daily. furosemide (LASIX) 20 mg tablet Take 1 tablet by mouth once daily. DULoxetine (CYMBALTA) 60 mg capsule Take 1 capsule by mouth once daily. primidone (MYSOLINE) 50 mg tablet TAKE ONE TABLET ONCE DAILY AT BEDTIME Insulin Hamlin, Disposable, (BD ULTRA-FINE MADI PEN NEEDLE) 32 gauge x 32 ndle Use one needle for each dose. 1/day. HYDROcodone-acetaminophen (NORCO) 5-325 mg per tablet TAKE ONE TABLET TWICE DAILY lancets (TRUEPLUS LANCETS) 30 gauge misc Test twice daily Dx: 250.02 traZODone (DESYREL) 50 mg tablet Take 0.5 tablets by mouth daily at bedtime. ARIPiprazole (ABILIFY) 10 mg tablet Take 1 tablet by mouth once daily. nitroglycerin sublingual (NITROQUICK) 0.4 mg SL tablet Dissolve 1 tablet under the tongue as needed. FOR CHEST PAIN. IF NO RELIEF CALL 911 aspirin, enteric coated (ECOTRIN LOW STRENGTH) 81 mg EC tablet Take 1 tablet by mouth once daily. No current facility-administered medications for this visit. Medication Changes: No change in medications Plan/Recommendations: 1) REQUIREMENTS FOR COMPLETING BEHAVIORAL HEALTH EVALUATION: *Documentation from current psychiatrist *Establish relationship with a psychologist and provide documentation of this to [facility] psychology ?(To schedule with [facility] Department of Psychiatry and Psychology, call [phone]) *[facility] attendance or equivalent individual treatment and [facility] psychology follow-up appointment after completion of group (To schedule with [facility] Binge eating group call [phone]) 2) The patient may benefit from the following during the surgery process: *Ongoing psychotropic medication management by Psychiatrist *Participation in a Weight Loss Surgery support group *Read Preparing for Weight Loss Surgery: Workbook (Treatments That Work) by Gee Magana, Aneudy Vargas, and Gemma Valiente ([employer], 2006) *Follow up with psychology as an inpatient if needed *Follow up with psychology at 1, 3, 6, 12 months and yearly thereafter as an outpatient *Do not use alcohol, tobacco, and street drugs for at least 6 months prior to and after surgery. ? 3) Insurance letter not completed at this time. Patient needs to complete additional preparation as outlined above. 4) PLAN FOR NEXT SESSION: Continue current treatment Number of weeks till next appointment: 1-2 weeks. ? Sherry Diaz, Ph.D., Licensed Esthetician Supervision comments: Reviewed above. Patient presented for second individual [facility] session. She was emotionally distressed due to a recent hospitalization yet refrained from maladaptive eating patterns during this time of heightened stress. I agree with the above impressions and plan. Reviewed in supervision. Recommend patient continue individual [facility] sessions. Damaso Muniz, Ph.D., Psychologist . Referring Provider: DAMASO MUNIZ (PHD) [[id number]] Allergies As of Date: 03/12/2018 Noted Allergy Reaction LYRICA (PREGABALIN) 08/05/2012 10 - Anaphylaxis Comments: Not sure if accurate. Can take gabapentin. Patient is unsure of reaction. ACCUPRIL (QUINAPRIL HCL) 08/12/2005 5 - Intolerance Comments: dizziness AMLODIPINE 04/24/2008 7 - Swelling Comments: Leg edema ATENOLOL 09/29/2010 7 - Swelling ATORVASTATIN 11/01/2017 5 - Intolerance Comments: Muscle cramps and weakness EFFEXOR (VENLAFAXINE HCL) 09/22/2005 Comments: swelling high blood pressure JANUVIA (SITAGLIPTIN) 09/21/2011 8 - GI Upset 14 - Other: See Comments Comments: Patient states she couldn't eat METOPROLOL 09/21/2009 7 - Swelling MOBIC (MELOXICAM) 08/12/2005 8 - GI Upset PROZAC (FLUOXETINE HCL) 08/12/2005 5 - Intolerance Comments: tremor RISPERIDONE 12/22/2009 1 - Mental Status Change SEROQUEL (QUETIAPINE FUMARATE) 10/05/2006 Comments: hypertension,swelling VANCOMYCIN 08/10/2017 9 - Itching 14 - Other: See Comments Comments: red all over VIOXX (ROFECOXIB) 08/12/2005 8 - GI Upset WELLBUTRIN (BUPROPION HCL) 08/12/2005 5 - Intolerance Comments: nightmares Date Reviewed: 03/06/2018 Reviewed by: Kate Brunner LPN - Fully Assessed Primary Visit Diagnosis:Major depressive disorder, recurrent, moderate (HCC) [F33.1] Other Visit Diagnoses:Anxiety disorder, unspecified type [F41.9] Binge-eating disorder, in partial remission, moderate [F50.81] Psychological factors affecting morbid obesity (HCC) [E66.01, F54] Prescriptions as of 03/12/2018 Sig: LEVOFLOXACIN 500 MG TABLET Take 1 tablet by mouth once d* BACLOFEN 10 MG TABLET Take 1 tablet by mouth twice * INSULIN GLARGINE (U-100) 100 * Inject 10 Units subcutaneousl* GABAPENTIN 300 MG CAPSULE Take 1 capsule by mouth twice* NABUMETONE 500 MG TABLET Take 1 tablet by mouth once d* CHOLECALCIFEROL (VITAMIN D3) * Take 1 capsule by mouth once * FUROSEMIDE 0.5 MG/ML PEDIATRI* DAILY BLOOD SUGAR DIAGNOSTIC STRIPS Test blood sugars up to 4 tiara* CHOLECALCIFEROL (VITAMIN D3) * Take 1 tablet by mouth once e* POTASSIUM CHLORIDE ER 10 MEQ * Take 1 tablet by mouth once d* POLYETHYLENE GLYCOL 3350 17 G* Take 17 g by mouth once daily. BLOOD-GLUCOSE METER KIT Glucose Meter of Choice - Kit* NYSTATIN 100,000 UNIT/GRAM TO* Apply 1 application to affect* SPIRONOLACTONE 25 MG TABLET Take 1 tablet by mouth once d* RANITIDINE 150 MG TABLET Take 1 tablet by mouth twice * FUROSEMIDE 20 MG TABLET Take 1 tablet by mouth once d* DULOXETINE 60 MG CAPSULE,JODI* Take 1 capsule by mouth once * PRIMIDONE 50 MG TABLET TAKE ONE TABLET ONCE DAILY AT* PEN NEEDLE, DIABETIC 32 GAUGE* Use one needle for each dose.* HYDROCODONE 5 MG-ACETAMINOPHE* TAKE ONE TABLET TWICE DAILY LANCETS 30 GAUGE Test twice daily Dx: 250.02 TRAZODONE 50 MG TABLET Take 0.5 tablets by mouth padmini* ARIPIPRAZOLE 10 MG TABLET Take 1 tablet by mouth once d* NITROGLYCERIN 0.4 MG SUBLINGU* Dissolve 1 tablet under the t* ASPIRIN 81 MG TABLET,DELAYED * Take 1 tablet by mouth once d* Problem List As Of Date 03/12/2018 Noted Resolved Major depressive disorder, recurrent episode, u*INVALID FOR*11/24/2014 More... Anxiety state [F41.1] INVALID FOR* BENIGN HYPERTENSION [I10] INVALID FOR* OSTEOARTHROS NOS-UNSPEC [M19.90] INVALID FOR*02/07/2007 ABNL GLANDULAR PAP SMEAR CERVIX [R87.619] INVALID FOR* HYPERPROLACTINEMIA [E22.9] INVALID FOR* IRREGULAR MENSTRUATION [N92.6] INVALID FOR* ESOPHAGEAL REFLUX [K21.9] INVALID FOR* ACUTE GASTRITIS W/O HEMORRHAGE [K29.00] INVALID FOR*02/07/2007 DIAPHRAGMATIC HERNIA [K44.9] INVALID FOR* Unspecified gastritis and gastroduodenitis with*INVALID FOR*07/24/2016 Localized osteoarthrosis not specified whether *INVALID FOR*07/24/2016 More... Pain in joint, site unspecified [M25.50] INVALID FOR*07/24/2016 [facility]*INVALID FOR*11/29/2011 Class: Chronic More... Routine gynecological examination [Z01.419] INVALID FOR*11/29/2011 Class: Chronic More... More... Morbid obesity [E66.01] INVALID FOR* Hyperprolactinemia [E22.1] INVALID FOR*01/30/2012 Obstructive sleep apnea [G47.33] INVALID FOR* More... Medication side effects [T88.7XXA] INVALID FOR*08/10/2017 SVT (supraventricular tachycardia) [I47.1] Type II or unspecified type diabetes mellitus w*INVALID FOR*04/10/2012 More... Congestive heart failure [I50.9] INVALID FOR* Spondylolisthesis [M43.10] INVALID FOR* Lumbar facet arthropathy [M47.816] INVALID FOR* DDD (degenerative disc disease), lumbar [M51.36]INVALID FOR* Diabetes mellitus [E11.9] INVALID FOR*11/24/2014 DDD (degenerative disc disease), cervical [M50.*INVALID FOR* DM (diabetes mellitus) (HCC) [E11.9] INVALID FOR* PMB (postmenopausal bleeding) [N95.0] INVALID FOR* Dysthymia [F34.1] INVALID FOR* Major depressive disorder, recurrent episode, m*INVALID FOR* More... Pain disorder with psychological factors [F45.4*INVALID FOR* Diffuse myofascial pain syndrome [M79.18] INVALID FOR* Bilateral primary osteoarthritis of knee [M17.0]INVALID FOR* Obesity, Class III, BMI >= 40 [E66.01] INVALID FOR*10/20/2017 Liver disease [K76.9] INVALID FOR* More... Umbilical hernia without obstruction and withou*INVALID FOR* More... Follow-up and Disposition History Recorded Encounter Status:Closed by DAMASO MUNIZ PHD on 03/13/18 DISCHARGE SUMMARY Observed: 03/08/2018 Status: F Source: [place] 3:00 PM [facility] REPOSITORY [facility] Medical Records Department [address] [place] [address] Discharge Summary 03/08/18 0944 MR#: [id number] Acct: [id number] Name: KATHLEEN KHAN V Rep #: [id number] : 1960 58 From: Sadaf Honeycutt MD PCP: Vincent Herbert MD Status: DIS IN Y Location: [facility] [place] [id number] Discharge Date and Diagnosis Date of Admission: 03/06/18 Date of Discharge: 03/08/18 - Primary Discharge Diagnosis Active and Suspected Problems Cellulitis of multiple sites of buttock (Acute) - Secondary Discharge Diagnosis Chronic Problems Exertional dyspnea (Chronic) Pulmonary hypertension (Chronic) Anxiety and depression (Chronic) Heart failure (Chronic) Diabetes mellitus, type II (Chronic) Chronic back pain (Chronic) JEREMÍAS (obstructive sleep apnea) (Chronic) Lumbosacral neuritis (Chronic) Esophageal reflux (Chronic) Morbid obesity (Chronic) Hypertension (Chronic) Hospital Course and Treatment Imaging Results: Clinical Impression(s) from Imaging Studies Chest X-Ray 03/06/18 16:34 IMPRESSION: Normal x-ray examination of the chest. 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 Patient was admitted to the monitored bed, managed on IV cefazolin, with improvement in his cellulitis. She was also continued on chlorhexidine bath. Patient did not have any fevers or chills. His hospital stay was uneventful. She was continued on her previous home medications. Started on fluconazole and nystatin powder for Shira intertrigo. She was discharged on Keflex for 5 more days. She will also discharged on fluconazole for 5 more days. Patient was advised to use chlorhexidine baths daily. She has an appointment to follow-up for possible bariatric surgery. Subjective: Patient was seen and examined, on the day of discharge. Feels improved. Denied any fever or chills. No new complaints. Previous night was uneventful. Objective: Physical Exam General: Alert, Oriented x3, Cooperative, No apparent distress, Well developed, Well nourished HEENT: Atraumatic, PERRLA, EOMI, Normocephalic Oral: No Gingival or Mucosal Lesions/ Ulcerations, Dry Mucosa Neck: Supple, Negative Carotid Bruits, No Nodes, No Nuchal Rigidity Lungs: Clear to auscultation, Normal air movement, No rhonchi, No wheeze, No rales, Diminished Cardiovascular: Regular rate, Regular Rhythm, Normal S1, Normal S2, No Ectopic Activity, Murmur, 2/6, Abdomen: Bowel Sounds Present, Soft, Non Tender, Non-Distended Extremities: No clubbing, No cyanosis, No edema, Capillary Refill Less than 3 Seconds, No Calf Tenderness, Peripheral Pulses Normal Skin: - - Improving erythema or the R buttock more than the left, improving within demarcation, an area of maceration in the R perirectal area improving, No purulent discharge, intertrigo in the groin and skin folds beneath the pannus. Musculoskeletal: No Tenderness to Palpation of Joints or Extremities, No Muscle Wasting Neurological: Cranial nerves II-XII grossly intact, Neuro grossly intact Psych/Mental Status: Normal Affect, Appropriate - Physical Exam Vital Signs Temp Pulse Resp BP Pulse Ox 97.8 F 66 18 122/63 H 96 03/08/18 08:06 03/08/18 08:06 03/08/18 08:06 03/08/18 08:06 03/08/18 08:06 Oxygen Delivery Method Room Air Weight: 157.6 kg Body Mass Index (BMI) 70.2 Intake and Output for Last 24 Hours Intake Total 2849 / 2849 160 / 160 Balance 2849 / 2849 160 / 160 Microbiology Past 72 Hours 03/06/18 17:15 Urine Culture - Final Urine, Clean Catch Mixed Gram Pos AND Gram Neg Org Laboratory Tests Past 24 Hrs WBC 4.9 RBC 4.70 Hgb 13.7 Hct 41.6 MCV 88.5 MCH 29.1 MCHC 32.9 POC Glucose POC Glucose 135 H 113 H 122 H POC Glucose 109 Discharge Diet: Low fat/ Low Cholesterol, 2000 mg Sodium Diet, Carb Control Diet Discharge Activity: Return to Normal Activity Call your doctor if your incision/area has: Increased Pain/ Swelling, Increased Redness Call your doctor if you observe: Fever of 101 or Higher Home Medications: Medications to take at Discharge Aspirin [Adult Low Dose Aspirin EC] 81 mg PO DAILY 12/02/14 Duloxetine HCl 60 mg PO DAILY 12/02/14 Ranitidine [Zantac] 150 mg PO BID 12/02/14 Spironolactone [Aldactone] 25 mg PO DAILY 12/02/14 Gabapentin [Neurontin] 300 mg PO BID 08/01/17 Primidone [Mysoline] 50 mg PO QHS 08/01/17 traZODone [Desyrel] 50 mg PO QHS 08/01/17 Nitroglycerin [Nitrostat] 0.4 mg SL PRN PRN 09/09/17 Aripiprazole [Abilify] 10 mg PO QHS 10/21/17 Furosemide [Lasix] 20 mg PO DAILY 10/29/17 Insulin Glargine,Hum.rec.anlog [Basaglar Kwikpen U-100] 10 unit SQ QHS 10/29/17 Nabumetone [Relafen] 500 mg PO DAILY 10/29/17 Baclofen 10 mg PO BID 03/06/18 Hydrocodone/Acetaminophen [Hydrocodone-Acetamin 5-325 mg] 1 tab PO TID PRN PRN 03/06/18 Polyethylene Glycol 3350 17 gm PO PRN PRN 03/06/18 Cephalexin [Keflex] 500 mg PO Q6 #20 capsule 03/08/18 Chlorhexidine Gluc 2% Cloth [(None)] 1 each TOPICAL DAILY #5 pack 03/08/18 Fluconazole [Diflucan] 100 mg PO DAILY #5 tablet 03/08/18 Menthol/Lanolin/Calamine/Znox [Calmoseptine Ointment] 1 applic TOPICAL BID #1 tube 03/08/18 Nystatin Powder [Mycostatin Powder] 1 applic TOPICAL BID #1 bottle 03/08/18 Following Prescrptions Were Given to Patient: Cephalexin [Keflex] 500 mg PO Q6 #20 capsule Chlorhexidine Gluc 2% Cloth [(None)] 1 each TOPICAL DAILY #5 pack Fluconazole [Diflucan] 100 mg PO DAILY #5 tablet Menthol/Lanolin/Calamine/Znox [Calmoseptine Ointment] 1 applic TOPICAL BID #1 tube Nystatin Powder [Mycostatin Powder] 1 applic TOPICAL BID #1 bottle Primary Care Physician: Vincent Herbert MD [Primary Care Provider] - Please follow up with your Primary Care Physician in: within 2 weeks of discharge Disposition: Home with Home Health Minutes spent on discharge:: 40 Patient Condition:: Stable Medical Necessity - Tobacco Use Smoking Status: Former smoker Tobacco Use: Non-smoker - she was a smoker in the past but quit Meaningful Use Info Meaningful Use Diagnoses (Choose all that apply): None applicable Code Visit Inpatient E AND M: 91827 Disch Hosp 03/08/18 1500 <Electronically signed by Sadaf Honeycutt MD> Date Sadaf Honeycutt MD Cosigner Signature (if applicable): Date CC: Sadaf Honeycutt MD; Vincent Herbert MD Signed DISCHARGE INSTRUCTION Observed: 03/08/2018 Status: F Source: [place] 9:44 [facility] REPOSITORY [facility] Medical Records Department [address] [place] [address] Instructions for Home/Discharge Instructions 03/08/18 0940 MR#: [id number] Acct: [id number] Name: KATHLEEN KHAN V Rep #: [id number] : 1960 58 From: Sadaf Honeycutt MD PCP: Vincent Herbert MD Status: ADM IN - Discharge Diagnoses Current Active Problems: Current Active and Chronic Problems Cellulitis of multiple sites of buttock (Acute) Pulmonary hypertension (Chronic) Reason(s) for Visit for Discharge Instructions: fever, chills, redness of the buttocks You will use the following diet at home:: Calorie/Carbohydrate Controlled (specify 1200, 1400, etc), Cardiac Your food should be the consistency of: Regular Your liquids should be the consistency of: Regular/Thin Discharge Activity: Return to Normal Activity Call your doctor if your incision/area has: Increased Pain/ Swelling, Increased Redness Call your doctor if you observe: Fever of 101 or Higher Additional Instructions: Complete your antibiotics and antifungal as prescribed. Continue the nystatin powder and calmoseptine. You are recommended to use the chlorhexidine bath twice a day or at least daily. Follow-up with your primary doctor for results of blood cultures that were pending at time of discharge. Allergies/Adverse Reactions: Allergies vancomycin Allergy (Verified 10/29/17 12:44) Rash amlodipine Adverse Reaction (Verified 10/29/17 12:44) Unknown atenolol Adverse Reaction (Verified 10/29/17 12:44) Unknown bupropion HCl [From Wellbutrin] Adverse Reaction (Verified 10/29/17 12:44) Unknown fluoxetine HCl [From Prozac] Adverse Reaction (Verified 10/29/17 12:44) Unknown meloxicam [From Mobic] Adverse Reaction (Verified 10/29/17 12:44) Unknown metoprolol Adverse Reaction (Verified 10/29/17 12:44) Unknown pregabalin [From Lyrica] Adverse Reaction (Verified 10/29/17 12:44) Unknown quetiapine fumarate [From Seroquel] Adverse Reaction (Verified 10/29/17 12:44) Unknown quinapril HCl [From Accupril] Adverse Reaction (Verified 10/29/17 12:44) Unknown risperidone Adverse Reaction (Verified 10/29/17 12:44) Unknown rofecoxib [From Vioxx] Adverse Reaction (Verified 10/29/17 12:44) Unknown sitagliptin phosphate [From Januvia] Adverse Reaction (Verified 10/29/17 12:44) Unknown venlafaxine HCl [From Effexor] Adverse Reaction (Verified 10/29/17 12:44) Unknown Medications to take at Discharge Aspirin [Adult Low Dose Aspirin EC] 81 mg PO DAILY 12/02/14 Duloxetine HCl 60 mg PO DAILY 12/02/14 Ranitidine [Zantac] 150 mg PO BID 12/02/14 Spironolactone [Aldactone] 25 mg PO DAILY 12/02/14 Gabapentin [Neurontin] 300 mg PO BID 08/01/17 Primidone [Mysoline] 50 mg PO QHS 08/01/17 traZODone [Desyrel] 50 mg PO QHS 08/01/17 Nitroglycerin [Nitrostat] 0.4 mg SL PRN PRN 09/09/17 Aripiprazole [Abilify] 10 mg PO QHS 10/21/17 Furosemide [Lasix] 20 mg PO DAILY 10/29/17 Insulin Glargine,Hum.rec.anlog [Basaglar Kwikpen U-100] 10 unit SQ QHS 10/29/17 Nabumetone [Relafen] 500 mg PO DAILY 10/29/17 Baclofen 10 mg PO BID 03/06/18 Hydrocodone/Acetaminophen [Hydrocodone-Acetamin 5-325 mg] 1 tab PO TID PRN PRN 03/06/18 Polyethylene Glycol 3350 17 gm PO PRN PRN 03/06/18 Cephalexin [Keflex] 500 mg PO Q6 #20 capsule 03/08/18 Chlorhexidine Gluc 2% Cloth [(None)] 1 each TOPICAL DAILY #5 pack 03/08/18 Fluconazole [Diflucan] 100 mg PO DAILY #5 tablet 03/08/18 Menthol/Lanolin/Calamine/Znox [Calmoseptine Ointment] 1 applic TOPICAL BID #1 tube 03/08/18 Nystatin Powder [Mycostatin Powder] 1 applic TOPICAL BID #1 bottle 03/08/18 The following prescriptions were given: Cephalexin [Keflex] 500 mg PO Q6 #20 capsule Chlorhexidine Gluc 2% Cloth [(None)] 1 each TOPICAL DAILY #5 pack Fluconazole [Diflucan] 100 mg PO DAILY #5 tablet Menthol/Lanolin/Calamine/Znox [Calmoseptine Ointment] 1 applic TOPICAL BID #1 tube Nystatin Powder [Mycostatin Powder] 1 applic TOPICAL BID #1 bottle Primary Care Physician: Vincent Herbert MD [Primary Care Provider] - Please follow up with your Primary Care Physician in: within 2 weeks of discharge Test Results: Test results from this visit will be discussed in further detail at your follow-up appointment, if applicable. Proposed Discharge Date: 03/08/18 03/08/1844 <Electronically signed by Sadaf Honeycutt MD> Date Sadaf Honeycutt MD CC: Vincent Herbert MD Signed BEDSIDE GLUCOSE Collected: 03/08/2018 Status: F Source: [place] 6:56 AM [facility] REPOSITORY TYPE CODE TESTS RESULT OUT OF REFERENCE UNITS RANGE LAB L501.080 70-110 mg/dL High BEDSIDE GLU 135 Result Comment: MANAGEMENT OF PATIENT CARE PER NURSING PROTOCOL Performed By: #### L501.080 #### [facility] Point of Care [address] [place] [address]. [place] [address] BASIC METABOLIC Collected: 03/08/2018 Status: F Source: [place] PROFILE (BMP) 5:34 AM [facility] REPOSITORY TYPE CODE TESTS RESULT OUT OF RANGE REFERENCE UNITS LAB L501.0100 74-106 mg/dL High GLU 141 Result Comment: Fasting Glucose result greater than or equal to 126 mg/dL suggests DIABETES MELLITUS per A.D.A. criteria. Please note revised GLUCOSE reference range effective 2017. LAB L501.1000 7-18 mg/dL Normal BUN 13 LAB L501.1100 0.55-1.02 mg/dL Normal CREAT,SERUM 0.56 Result Comment: The validity of the calculated GFR AND GFRAA in patients over 70 years has not been determined. Clinical correlation is essential. LAB L501.1110 >60 mL/min Normal EST GFR 118 Result Comment: Non- GFR Calc LAB L501.1115 >60 mL/min Normal EST GFR - AA 142 Result Comment: GFR Calc LAB L501.1255 ml/min Normal Estimated CRCL 272.44 LAB L501.1300 10-20 RATIO High BUN/CRE 23.1 LAB L501.2200 8.5-10 mg/dL .1 CA Normal 9.5 LAB L501.5300 136-14 mmol/L 5 NA Normal 142 LAB L501.5600 3.5-5. mmol/L 1 K Normal 4.2 Result Comment: Slight Hemolysis, Result may be falsely increased. LAB L501.5900 98-107 mmol/L High CL 108 LAB L501.6100 21.0-32.0 mmol/L Normal CO2 26.0 LAB L501.6200 5-15 Normal 8 GAP Performed By: #### L500.2500 #### [facility] [address] [facility] [place], [address] CBC W/DIFF, AUTOMATED Collected: 03/08/2018 Status: F Source: [place] 5:34 AM [facility] REPOSITORY TYPE CODE TESTS RESULT OUT OF RANGE REFERENCE UNITS LAB L100.1000 4.4-11.0 K/mm3 Normal WBC 4.9 LAB L100.1200 4.2-5.4 M/mm3 Normal RBC 4.70 LAB L100.1300 12.0-15.0 g/dl Normal HGB 13.7 LAB L100.1400 37-47 % Normal HCT 41.6 LAB L100.1500 81-99 fL Normal MCV 88.5 LAB L100.1600 27.0-32.0 pg Normal MCH 29.1 LAB L100.1700 32-36 g/gl Normal MCHC 32.9 LAB L100.1810 11.6-14.6 % Normal RDW CV 14.1 LAB L100.1820 35.1-43.9 fl High RDW SD 45.6 LAB L100.1900 150-450 K/mm3 Normal PLT 183 LAB L100.2000 6.2-12.0 fl Normal MPV 11.4 LAB L100.2100 47-70 % Normal NEUT% 61.5 LAB L100.2200 19-41 % Normal LY% 26.3 LAB L100.2300 0-10 % Normal MONO% 7.1 LAB L100.2400 0-5 % Normal EO% 4.9 LAB L100.2500 0-1 % Normal BASO% 0.2 LAB L100.2550 0.0-0.9 % Normal IM GRAN % 0.000 Result Comment: IG% - Immature Granulocytes (promyelocytes, myelocytes and metamyelocytes) > 1% indicates that a LEFT SHIFT is Present. LAB L100.2620 2.0-7.7 X10 3/uL Normal Absolute Neut 3.0 LAB L100.2720 0.83-4.51 X10 3/ul Normal Absolute Lymph 1.29 Performed By: #### L100.0100 #### [facility] [address] [facility] [place], [address] BEDSIDE GLUCOSE Collected: 03/07/2018 Status: F Source: [place] 9:54 PM [facility] REPOSITORY TYPE CODE TESTS RESULT OUT OF REFERENCE UNITS RANGE LAB L501.080 70-110 mg/dL High BEDSIDE GLU 113 Result Comment: MANAGEMENT OF PATIENT CARE PER NURSING PROTOCOL Performed By: #### L501.080 #### [facility] Point of Care [address] [facility] [place] [address] BEDSIDE GLUCOSE Collected: 03/07/2018 Status: F Source: [place] 5:01 PM [facility] REPOSITORY TYPE CODE TESTS RESULT OUT OF REFERENCE UNITS RANGE LAB L501.080 70-110 mg/dL High BEDSIDE GLU 122 Result Comment: MANAGEMENT OF PATIENT CARE PER NURSING PROTOCOL Performed By: #### L501.080 #### [facility] Point of Care [address] [place] [address] BEDSIDE GLUCOSE Collected: 03/07/2018 Status: F Source: [place] 11:16 AM [facility] REPOSITORY TYPE CODE TESTS RESULT OUT OF RANGE REFERENCE UNITS LAB L501.080 70-110 mg/dL Normal BEDSIDE GLU 109 Result Comment: MANAGEMENT OF PATIENT CARE PER NURSING PROTOCOL Performed By: #### L501.080 #### [facility] Point of Care [address] [place] [address] BEDSIDE GLUCOSE Collected: 03/07/2018 Status: F Source: [place] 6:40 AM [facility] REPOSITORY TYPE CODE TESTS RESULT OUT OF RANGE REFERENCE UNITS LAB L501.080 70-110 mg/dL Normal BEDSIDE GLU 101 Result Comment: MANAGEMENT OF PATIENT CARE PER NURSING PROTOCOL Performed By: #### L501.080 #### [facility] Point of Care [address] [place] [address] BEDSIDE GLUCOSE Collected: 03/06/2018 Status: F Source: [place] 10:07 PM [facility] REPOSITORY TYPE CODE TESTS RESULT OUT OF RANGE REFERENCE UNITS LAB L501.080 70-110 mg/dL Normal BEDSIDE GLU 104 Result Comment: MANAGEMENT OF PATIENT CARE PER NURSING PROTOCOL Performed By: #### L501.080 #### [facility] Point of Care [address] [place] [address] HISTORY AND PHYSICAL Observed: 03/06/2018 Status: F Source: [place] EXAM 8:37 PM [facility] REPOSITORY [facility] Medical Records Department [address] [place] [address] History and Physical 03/06/182014 MR#: [id number] Acct: [id number] Name: KATHLEEN KHAN V Rep #: [id number] : 1960 58 From: Sanjay Ayers DO PCP: Vincent Herbert MD Status: ADM IN Y Location: [place] OP745-4 ADDENDUM by Jenn Ayers on 03/06/18 at 2036 Code Visit Inpatient E AND M: [id number] Init Hosp L2 03/06/182036 <Electronically signed by Sanjay Ayers DO> Date Sanjay Ayers DO cc: Jenn Ayers; Vincent Herbert MD * Signed Problem List (1) Cellulitis of multiple sites of buttock Status: Acute (2) Sepsis Status: Ruled-out (3) Chest pain Status: Resolved Qualifiers: Chest pain type: unspecified Qualified Code(s): R07.9 - Chest pain, unspecified (4) Exertional dyspnea Status: Chronic (5) Anxiety and depression Status: Chronic (6) Chronic back pain Status: Chronic Qualifiers: Back pain location: back pain in unspecified location Back pain laterality: unspecified Qualified Code(s): M54.9 - Dorsalgia, unspecified; G89.29 - Other chronic pain (7) Diabetes mellitus, type II Status: Chronic Qualifiers: Diabetes mellitus computer terminal operator insulin use: with group home use Diabetes mellitus complication status: with unspecified complications Qualified Code(s): E11.8 - Type 2 diabetes mellitus with unspecified complications; Z79.4 - computer terminal operator (current) use of insulin (8) Esophageal reflux Status: Chronic Qualifiers: Esophagitis presence: esophagitis presence not specified Qualified Code(s): K21.9 - Gastro-esophageal reflux disease without esophagitis (9) Heart failure Status: Chronic Qualifiers: Heart failure type: diastolic Heart failure chronicity: chronic Qualified Code(s): I50.32 - Chronic diastolic (congestive) heart failure (10) History of pneumonia Status: Resolved (11) Hypertension Status: Chronic Qualifiers: Hypertension type: essential hypertension Qualified Code(s): I10 - Essential (primary) hypertension (12) Lumbosacral neuritis Status: Chronic (13) Morbid obesity Status: Chronic (14) JEREMÍAS (obstructive sleep apnea) Status: Chronic (15) Pulmonary hypertension Status: Chronic History of Present Illness Date of Admission: 03/06/18 Chief Complaint: fever to 100 degrees F associated with chills, nausea, weakness and redness on her buttocks The patient is a 58 year old F with a past medical history of diabetes mellitus type 2, hypertension, gastroesophageal reflux disease, anxiety/depression, super morbid obesity, obstructive sleep apnea, pulmonary hypertension, diastolic CHF, chronic back pain and sciatica who presented to the ED at [facility] on 03/06/2018 complaining of cellulitis of her buttocks. She has recently experienced fever to 100 F at home associated with chills, nausea, weakness and a red rash on her buttocks when she looks in the mirror. She went to see her primary care physician who referred her to the emergency department. She has had multiple episodes of cellulitis of her buttocks in the past. She admits to being incontinent of urine but, has no incontinence of stool. She is ambulatory with a front wheeled walker. She is able to drive her car. She has home health care 5 days a week at home to help with bathing, toileting. She was afebrile in the emergency room. Her heart rate ranged from 84-91 while in the emerge C room. Blood pressures are within normal limits. Her respiratory rate is 18-20 and she is 96% saturated on room air. Blood cell count was elevated at 13.3 with 91% neutrophils. Hemoglobin and platelets are within normal limits. BMP is unremarkable. Lactic acid was within normal limits at 1.3 and a random glucose was 108. She is being admitted to the hospital with a diagnosis of recurrent cellulitis of the buttocks. Past Medical History Past Medical History (Chronic Problems): Chronic Problems Exertional dyspnea (Chronic) Pulmonary hypertension (Chronic) Anxiety and depression (Chronic) Heart failure (Chronic) Diabetes mellitus, type II (Chronic) Chronic back pain (Chronic) JEREMÍAS (obstructive sleep apnea) (Chronic) Lumbosacral neuritis (Chronic) Esophageal reflux (Chronic) Morbid obesity (Chronic) Hypertension (Chronic) Allergies vancomycin Allergy (Verified 10/29/17 12:44) Rash amlodipine Adverse Reaction (Verified 10/29/17 12:44) Unknown atenolol Adverse Reaction (Verified 10/29/17 12:44) Unknown bupropion HCl [From Wellbutrin] Adverse Reaction (Verified 10/29/17 12:44) Unknown fluoxetine HCl [From Prozac] Adverse Reaction (Verified 10/29/17 12:44) Unknown meloxicam [From Mobic] Adverse Reaction (Verified 10/29/17 12:44) Unknown metoprolol Adverse Reaction (Verified 10/29/17 12:44) Unknown pregabalin [From Lyrica] Adverse Reaction (Verified 10/29/17 12:44) Unknown quetiapine fumarate [From Seroquel] Adverse Reaction (Verified 10/29/17 12:44) Unknown quinapril HCl [From Accupril] Adverse Reaction (Verified 10/29/17 12:44) Unknown risperidone Adverse Reaction (Verified 10/29/17 12:44) Unknown rofecoxib [From Vioxx] Adverse Reaction (Verified 10/29/17 12:44) Unknown sitagliptin phosphate [From Januvia] Adverse Reaction (Verified 10/29/17 12:44) Unknown venlafaxine HCl [From Effexor] Adverse Reaction (Verified 10/29/17 12:44) Unknown Home Medications: Ambulatory Orders Medication Instructions Recorded Aspirin [Adult Low Dose Aspirin EC] 81 mg PO DAILY 12/02/14 Surgical History: - - Cholecystectomy, hernia repair, cataract surgery, D AND C. Psychiatric History: Anxiety, Depression RESIDENCE HALL DIRECTOR History: No pertinent RESIDENCE HALL DIRECTOR history Lives: Alone - but has [facility] 5 days a week Smoking Status: Former smoker Tobacco Use: Non-smoker - she was a smoker in the past but quit Alcohol: Rare Drugs: None - *Family History Sibling History Items: - - Patient notes sibling with heart disease, coronary disease, diabetes, stroke. Maternal History Items: - - Patient notes a maternal family history of heart disease, diabetes, stroke. Paternal History Items: - - Patient notes a paternal family history of hypertension. Review of Systems Constitutional: Reports: Chills, Fever, Weakness. Denies: Weight Change HEENT: Denies: Head Aches, Sinus Congestion, Sinus Drainage Cardiovascular: Denies: Chest Pain, Light Headedness, Palpitations Respiratory: Reports: Shortness of breath upon exertion. Denies: Cough, Shortness of breath at rest, Sputum production Gastrointestinal: Reports: Nausea. Denies: Abdominal Pain, Diarrhea, Vomiting Genitourinary: Reports: Incontinence. Denies: Dysuria, Retention Gynecological: Denies: Vaginal discharge Musculoskeletal: Reports: Back Pain, Joint Pain, Joint Tenderness Skin: Denies: Jaundice, Rash, Wounds Neurological: Denies: Numbness, Tingling, Focal weakness Psychiatric: Reports: Anxiety, Depression. Denies: Homicidal Ideations, Suicidal Ideations Endocrine: Denies: Change in Body Habitus Hematologic/ Lymphatic: Denies: Easy Bruising, Easy Bleeding, Hx of blood clot VTE Information - Inpt Only VTE Present on Admission: No VTE Mechan Device Prophylaxis: None VTE Pharm Prophylaxis ordered?: Yes Patient Problems: Active and Suspected Problems Cellulitis of multiple sites of buttock (Acute) - Physical Exam General: Alert, Oriented x3, Cooperative, No apparent distress, Well developed, Well nourished HEENT: Atraumatic, PERRLA, EOMI, Normocephalic Oral: No Gingival or Mucosal Lesions/ Ulcerations, Dry Mucosa Neck: Supple, Negative Carotid Bruits, No Nodes, No Nuchal Rigidity Lungs: Clear to auscultation, Normal air movement, No rhonchi, No wheeze, No rales, Diminished Cardiovascular: Regular rate, Regular Rhythm, Normal S1, Normal S2, No Ectopic Activity, Murmur - L ventricular outflow tract, No Gallop Abdomen: Bowel Sounds Present, Soft, Non Tender, Non-Distended Extremities: No clubbing, No cyanosis, No edema, Capillary Refill Less than 3 Seconds, No Calf Tenderness, Peripheral Pulses Normal Skin: - - There is erythema or the R buttock more than the left. It is warm to touch. There is an area of maceration in the R perirectal area that is open. No purulent DC. she has intertrigo in the groin and skin folds beneath the pannus. Musculoskeletal: No Tenderness to Palpation of Joints or Extremities, No Muscle Wasting Neurological: Cranial nerves II-XII grossly intact, Neuro grossly intact Psych/Mental Status: Normal Affect, Appropriate Vital Signs Temp Pulse Resp BP Pulse Ox 98.9 F 89 20 H 111/55 L 96 03/06/18 19:41 03/06/18 19:41 03/06/18 19:41 03/06/18 19:41 03/06/18 19:41 Oxygen Delivery Method Room Air Weight: 351 lb Body Mass Index (BMI) 70.9 Laboratory Tests Past 24 Hrs Assessment/Plan All Active Problems Cellulitis of multiple sites of buttock (Acute) Sepsis (Ruled-out) Chest pain (Resolved) History of pneumonia (Resolved) Impressions 1. Cellulitis of both buttocks with maceration in the right perirectal area. Sepsis ruled out. She has 1 SIRS criteria and that is the WBC of 13.3. 2. Super morbid obesity 3. Urinary incontinence 4. Intertrigo 5. Diabetes mellitus type 2 6. Obstructive sleep apnea-states compliant with CPAP 7. Mild pulmonary hypertension 8. Anxiety/depression 9. Gastroesophageal reflux disease 10. Hypertension 11. History of congestive heart failure-diastolic, EF within the past year was 65% Blood cultures X 2 Lactic acid - normal ESR and CRP Antibiotics Ancef Pain control recheck the lab in the AM Chlorhexidine to decontaminate the skin Calmoseptine in the eliu-rectal area BID Diflucan for intertrigo Consult the wound/ostomy nurse may benefit from a consult with Dr. Lo in the future for urinary incontinence Lovenox for DVT prophylaxis 03/06/182036 <Electronically signed by Sanjay Ayers DO> Date Sanjay Ayers DO Cosigner Signature: Date (if applicable) CC: Jenn Ayers; Vincent Herbert MD Signed EMERGENCY DEPARTMENT Observed: 03/06/2018 Status: F Source: [place] SUMMARY 7:21 PM [facility] REPOSITORY [facility] Medical Records Department [address] [place] [id number] Emergency Department Summary 03/06/18 1634 MR#: [id number] Acct: [id number] Name: KATHLEEN KHAN V Rep #: [id number] : 1960 58 From: Jayden Hyde MD PCP: Vincent Herbert MD Status: REG ER History of Present Illness Chief Complaint: Cellulitis Informant: Patient, PCP Onset: Days - 2 Context: Gradual Onset Timing: Continuous Quality: sore Location: buttocks Current Severity: Moderate Maximum Severity: Moderate Worsened by: sitting, palpation of affected area Associated Symptoms: weak/malaise, fever today Narrative: Seen by PCP for this today, concerned that patient may be septic similar to prior episodes of this recurrent cellulitis in this location for unknown reason. No recent injury, foreign body, other wounds. Prior similar symptoms: Yes Recent Illness/Hospitalization: No - Past Medical History (1) Diabetes mellitus, type II Status: Chronic (2) Anxiety and depression Status: Chronic (3) Chronic back pain Status: Chronic (4) Esophageal reflux Status: Chronic (5) Hypertension Status: Chronic (6) Lumbosacral neuritis Status: Chronic (7) Morbid obesity Status: Chronic (8) JEREMÍAS (obstructive sleep apnea) Status: Chronic Past Medical History - Allergies and Home Meds Allergies/Adverse Reactions: Allergies vancomycin Allergy (Verified 10/29/17 12:44) Rash amlodipine Adverse Reaction (Verified 10/29/17 12:44) Unknown atenolol Adverse Reaction (Verified 10/29/17 12:44) Unknown bupropion HCl [From Wellbutrin] Adverse Reaction (Verified 10/29/17 12:44) Unknown fluoxetine HCl [From Prozac] Adverse Reaction (Verified 10/29/17 12:44) Unknown meloxicam [From Mobic] Adverse Reaction (Verified 10/29/17 12:44) Unknown metoprolol Adverse Reaction (Verified 10/29/17 12:44) Unknown pregabalin [From Lyrica] Adverse Reaction (Verified 10/29/17 12:44) Unknown quetiapine fumarate [From Seroquel] Adverse Reaction (Verified 10/29/17 12:44) Unknown quinapril HCl [From Accupril] Adverse Reaction (Verified 10/29/17 12:44) Unknown risperidone Adverse Reaction (Verified 10/29/17 12:44) Unknown rofecoxib [From Vioxx] Adverse Reaction (Verified 10/29/17 12:44) Unknown sitagliptin phosphate [From Januvia] Adverse Reaction (Verified 10/29/17 12:44) Unknown venlafaxine HCl [From Effexor] Adverse Reaction (Verified 10/29/17 12:44) Unknown Primary Care Physician: Vincent Herbert MD [Primary Care Provider] - Surgical History: - - Cholecystectomy, hernia repair, cataract surgery, D AND C. Smoking Status: Former smoker Drugs: None - Family History Sibling Family History: Reports: - - Patient notes sibling with heart disease, coronary disease, diabetes, stroke. Maternal Family History: Reports: - - Patient notes a maternal family history of heart disease, diabetes, stroke. Paternal Family History: Reports: - - Patient notes a paternal family history of hypertension. Review of Systems General: Reports: Chills, Fever, Malaise. Denies: Sweats Eyes: Denies: Visual changes - bilaterally, Diplopia ENT: Denies: Rhinorrhea, Sore throat Cardiovascular: Denies: Chest pain, Palpitations, Heart racing Respiratory: Reports: Dyspnea - when I had a fever; gone now. Denies: Cough, Dyspnea on exertion Gastrointestinal: Denies: Abdominal pain, Nausea, Vomiting, Diarrhea, Melena, Hematochezia Genitourinary: Denies: Dysuria, Hematuria, Frequency Musculoskeletal: Reports: Back pain - buttocks, L>R. Denies: Swelling, Extremity Pain Skin: Reports: Rash - buttocks. Denies: Abrasions Neurological: Denies: Headache, Weakness, Numbness Allergy: Denies: Swelling of the mouth, Swelling of the tongue Physical Exam Vital Signs/Narrative: Vital Signs 03/06/18 15:26 97.0 F L 109 H 17 125/79 H 97 Inital Vital Signs reviewed: Yes General: Well nourished, Well developed, Obese, - - NAD Head: Normocephalic, Atraumatic Eyes: Perrl, EOMI ENT: Moist mucous membranes, No rhinorrhea Neck: Supple, Nontender Cardiovascular: Regular rate, Regular rhythm, No murmurs Respiratory: No distress, CTA bilaterally, Chest nontender Abdomen: Soft, Nontender, Nondistended, Normal bowel sounds Back: Nontender, Normal Inspection Extremities: Nontender, No edema Skin: Normal color, Rash - tender erythema w/o abscess both buttocks, worse on right; no LE involvement at this time Neurological: Alert, Oriented x3, Cranial nerves II-XII grossly intact, Normal Strength, Normal Sensation Psychological: Normal affect Diagnostic/Tx/Re-eval Impressions Chest X-Ray 03/06/18 16:34 IMPRESSION: Normal x-ray examination of the chest. Electronically Signed: Gm Cao MD at 17:20 EST , Service support , 03/06/18 16:34 Chest 1 View (Portable) [RAD] Stat Laboratory Results - Medical Decision Making Patient had a fever earlier and is not tachycardic, consistent with sepsis. She was given empiric Zosyn which helped when she was an inpatient last time for this problem. She feels very weak and feels the need to be admitted. Will discuss with hospitalist. Has a leukocytosis. ED Disposition - Plan for ED Patient: Disposition: Acute Care Hospital [facility] Chief Complaint: Cellulitis Diagnosis: Sepsis, Cellulitis of multiple sites of buttock Referrals: Vincent Herbert MD [Primary Care Provider] - What to do if you have Problems For any increased pain, shortness of breath, bleeding, nausea or vomiting, chest pain, or any unexpected problems, contact your Primary Care Provider. Call [facility] ([phone]) or report to the closest Emergency Room. Call 911 if necessary. 03/06/181920 <Electronically signed by Jayden Hyde MD> Date Jayden Hyde MD Cosigner Signature (If Indicated): Date CC: Vincent Herbert MD URINALYSIS, COMPLETE Collected: 03/06/2018 Status: F Source: [place] 5:15 PM [facility] REPOSITORY Order Comment: Order Date: 03/06/18 How was Urine Obtained? TREASURY DIRECTOR TO SPECIFY TYPE CODE TESTS RESULT OUT OF RANGE REFERENCE UNITS LAB L400.3000 Yellow COLOR Normal Yellow LAB L400.3050 Clear Normal CLARITY Clear LAB L400.3200 Normal mg/dl Normal GLUCOSE, UR Normal LAB L400.3300 Negative mg/dL Normal BILIRUBIN URINE Negative LAB L400.3400 Negative mg/dl High 5 KETONE UR LAB L400.3465 1.002-1.030 Normal SP.GR. DIPSTX 1.010 LAB L400.3550 5.0 - 8.0 pH UR Normal 8.0 LAB L400.3600 Negative mg/dl PROT Normal DIPSTX Negative LAB L400.3700 Normal mg/dl Normal UROBILI Normal LAB L400.3750 Negative Normal NITRITE UR Negative LAB L400.3780 Negative /ul Normal OCCULT BLOOD-UR Negative LAB L400.3800 Negative /ul High LEUK ESTERASE 100 LAB L400.4050 0-5 /hpf WBC 0 Normal SEEN LAB L400.4100 0-5 /hpf 0 Normal RBC-UA SEEN LAB L400.4150 5-10 /hpf SQUAM Normal EPI 5-10 SEEN LAB L400.4300 None Seen /hpf 0 Normal BACTERIA SEEN LAB L400.4350 <or=2+ /hpf 0 Normal MUCUS, URINE SEEN Performed By: #### L400.0001 #### [facility] [address], [address] Observed: 03/06/2018 Status: F Source: [place] CULTURE, URINE 5:15 PM [facility] REPOSITORY Order Date: 03/06/18 Urine Culture MIXED GRAM NEGATIVE RODS, INCLUDING PROTEUS SP. ORGANISM 1: Mixed Gram Pos AND Gram Neg Org [place] Count 80,000-100,000 MIX CULTURE Mixed contaminants. Submit a new specimen if indicated. Performed By: #### M100.0650 #### [facility] [address] [place], [address] Observed: 03/06/2018 Status: F Source: [place] CULTURE, BLOOD (WB) 4:15 PM [facility] REPOSITORY BC No growth in 5 days. Performed By: #### M200.1000 #### [facility] [address] [facility] [place], [address] CBC W/DIFF, AUTOMATED Collected: 03/06/2018 Status: F Source: [place] 4:05 PM [facility] REPOSITORY TYPE CODE TESTS RESULT OUT OF RANGE REFERENCE UNITS LAB L100.1000 4.4-11.0 K/mm3 High WBC 13.3 LAB L100.1200 4.2-5.4 M/mm3 Normal RBC 4.58 LAB L100.1300 12.0-15.0 g/dl Normal HGB 13.4 LAB L100.1400 37-47 % Normal HCT 39.6 LAB L100.1500 81-99 fL Normal MCV 86.5 LAB L100.1600 27.0-32.0 pg Normal MCH 29.3 LAB L100.1700 32-36 g/gl Normal MCHC 33.8 LAB L100.1810 11.6-14.6 % Normal RDW CV 13.9 LAB L100.1820 35.1-43.9 fl Normal RDW SD 43.0 LAB L100.1900 150-450 K/mm3 Normal PLT 177 LAB L100.2000 6.2-12.0 fl Normal MPV 11.4 LAB L100.2100 47-70 % High NEUT% 91.3 LAB L100.2200 19-41 % Low LY% 3.7 LAB L100.2300 0-10 % Normal MONO% 4.5 LAB L100.2400 0-5 % Normal EO% 0.3 LAB L100.2500 0-1 % Normal BASO% 0.1 LAB L100.2550 0.0-0.9 % Normal IM GRAN % 0.100 Result Comment: IG% - Immature Granulocytes (promyelocytes, myelocytes and metamyelocytes) > 1% indicates that a LEFT SHIFT is Present. LAB L100.2620 2.0-7.7 X10 3/uL High Absolute Neut 12.2 LAB L100.2720 0.83-4.51 X10 3/ul Low Absolute Lymph 0.49 LAB L100.4500 Normal SMEAR COMMENT SCANNED Result Comment: LYMPHOPENIA NOTED Performed By: #### L100.0100 #### [facility] [address] [place], [address] COMPREHENSIVE METABOLIC Collected: 03/06/2018 Status: F Source: [facility] 4:05 PM [facility] REPOSITORY TYPE CODE TESTS RESULT OUT OF RANGE REFERENCE UNITS LAB L501.0100 74-106 mg/dL High GLU 108 Result Comment: Fasting Glucose result from 100 to 125 mg/dL suggests IMPAIRED HOMEOSTASIS per A.D.A. criteria. Please note revised GLUCOSE reference range effective 2017. LAB L501.1000 7-18 mg/dL Normal BUN 15 LAB L501.1100 0.55-1.02 mg/dL Normal CREAT,SERUM 0.56 Result Comment: The validity of the calculated GFR AND GFRAA in patients over 70 years has not been determined. Clinical correlation is essential. LAB L501.1110 >60 mL/min Normal EST GFR 117 Result Comment: Non- GFR Calc LAB L501.1115 >60 mL/min Normal EST GFR - AA 142 Result Comment: GFR Calc LAB L501.1255 ml/min Normal Estimated CRCL 275.22 LAB L501.1300 10-20 RATIO High BUN/CRE 26.6 LAB L501.1500 6.4-8. g/dL 2 T PROT Normal 6.7 LAB L501.1800 3.2-5. g/dL 0 ALB Normal 3.7 LAB L501.1950 2.2-4. g/dL 2 GLOB Normal 3.0 LAB L501.2000 0.9-2. RATIO 4 A/G Normal 1.2 LAB L501.2200 8.5-10 mg/dL .1 CA Normal 9.7 LAB L501.4100 15-37 U/L AST Normal 23 LAB L501.4305 45-117 U/L High ALK P 129 LAB L501.4405 13-56 U/L ALT Normal 40 LAB L501.4600 0.20-1 mg/dL .00 T BILI Normal 0.90 LAB L501.5300 136-14 mmol/L 5 NA Normal 141 LAB L501.5600 3.5-5. mmol/L 1 K Normal 3.9 LAB L501.5900 98-107 mmol/L CL Normal 102 LAB L501.6100 21.0-3 mmol/L 2.0 CO2 Normal 30.0 LAB L501.6200 5-15 GAP Normal 9 Performed By: #### L500.4050, L501.4010 #### [facility] [address] [facility] [place], [place], [address] TROPONIN-I Collected: 03/06/2018 Status: F Source: [place] 4:05 PM [facility] REPOSITORY TYPE CODE TESTS RESULT OUT OF RANGE REFERENCE UNITS LAB L501.4010 <0.045 ng/mL Normal < 0.015 TROPONIN-I Result Comment: TROPONIN-I EXPECTED VALUES <0.045 Negative 0.045 - 0.590 Consistent with Cardiac Damage > OR = 0.600 Critical Value Not every elevated troponin is indicative of WI. These values should be used with clinical judgement in examining the patient's clinical picture for diagnosis. To establish a diagnosis of WI versus myocardial injury, there must be a demonstrated rise and/or fall in the troponin values, in addition to ischemic symptoms, EKG changes, new regional wall motion abnormality, and/or angiographical evidence. PLEASE NOTE: REFERENCE RANGES EDITED 17 Performed By: #### L500.4050, L501.4010 #### [facility] [address] [facility] [place], [place], [address] LACTIC ACID Collected: 03/06/2018 Status: F Source: [place] 4:05 PM [facility] REPOSITORY Order Comment: Yes/No query for Sepsis Lactate Rule Y TYPE CODE TESTS RESULT OUT OF RANGE REFERENCE UNITS LAB L503.6005 0.4-2.0 mmol/L Normal LACTIC ACID 1.3 Performed By: #### L503.6005 #### [facility] [address] [facility] [place], [place], [address] PROTHROMBIN TIME W/INR Collected: 03/06/2018 Status: F Source: [place] 4:05 PM [facility] REPOSITORY TYPE CODE TESTS RESULT OUT OF RANGE REFERENCE UNITS LAB L300.4150 11.7-14.9 SECONDS Normal PROTIME 14.5 LAB L300.4200 Normal INR 1.1 Performed By: #### L300.3900, L300.4310 #### [facility] [address] [place], [address] PARTIAL THROMBOPLAST Collected: 03/06/2018 Status: F Source: [place] TIME 4:05 PM [facility] REPOSITORY TYPE CODE TESTS RESULT OUT OF RANGE REFERENCE UNITS LAB L300.4310 24.1-36.2 Seconds Normal PTT 31.3 Performed By: #### L300.3900, L300.4310 #### [facility] [address] [place], [place], [address] CRP Collected: 03/06/2018 Status: F Source: [place] 4:05 [facility] REPOSITORY TYPE CODE TESTS RESULT OUT OF RANGE REFERENCE UNITS LAB L501.6710 0.0-3.0 mg/L High 83.70 C-REACTIVE PROT Result Comment: C-Reactive Protein (CRP) provides useful information for the diagnosis, therapy and monitoring of inflammatory processes and associated diseases. For the evaluation of Relative Risk for Cardiovascular Disease, a High Sensitivity CRP (HSCRP) should be ordered. Performed By: #### L501.6710 #### [facility] [address] [place], [place], [address] ERYTHROCYTE SED RATE Collected: 03/06/2018 Status: F Source: [place] 4:05 PM [facility] REPOSITORY TYPE CODE TESTS RESULT OUT OF RANGE REFERENCE UNITS LAB L102.0000 0-30 mm/hr Normal SED RATE 16 Performed By: #### L101.9900 #### [facility] [address] [place], [address] HEMOGLOBIN A1C Collected: 03/06/2018 Status: F Source: [place] 4:05 PM [facility] REPOSITORY TYPE CODE TESTS RESULT OUT OF RANGE REFERENCE UNITS LAB L501.9985 4.2-6.3 % Normal HGB A1C 5.7 Performed By: #### L501.9985 #### [facility] [address] [facility] [place], [address] Observed: 03/06/2018 Status: F Source: [place] CULTURE, BLOOD (WB) 4:05 PM [facility] REPOSITORY BC No growth in 5 days. Performed By: #### M200.1000 #### [facility] [address] [place] [place], [address] CHEST 1 VIEW Observed: 03/06/2018 Status: F Source: JOSE ALFREDO (PORTABLE) 3:54 PM [facility] REPOSITORY [facility] Imaging Services [facility] [address] Chest 1 View (Portable) MR#: [id number] Acct: [id number] Name: KATHLEEN KHAN V Rep #: [id number] : 1960 F 58 From: Gm Cao MD PCP: Vincent Herbert MD Status: REG ER Study: Chest 1 View (Portable) Date of Exam: 03/06/18 Exam# [id number] Ordering Dr: Jayden Hyde MD STUDY: X-RAY CHEST REASON FOR EXAM: Female, 58 years old. Cellulitis TECHNIQUE: Single frontal view of the chest. COMPARISON: October 29, 2017 FINDINGS: The lungs are clear and expanded. There is no demonstrated pleural abnormality. Normal size heart. Normal mediastinum and erich. Normal visualized pulmonary arteries. Normal visualized aortic arch and descending thoracic aorta. Normal visualized thoracic spine. Normal visualized ribs, clavicles, and shoulders. There is no demonstrated abnormality of the visualized soft tissue structures of the upper abdomen. RAD/Chest 1 View (Portable) IMPRESSION: Normal x-ray examination of the chest. Electronically Signed: Gm Cao MD at 17:20 EST , Service support , CC: JAYDEN HYDE MD; Vincent Herbert MD Plate Grainer: Signed CNOV Observed: 03/06/2018 Status: COMPLETED Source: [place] 3:00 PM [facility] REPOSITORY Office Visit (FAMPWS) KATHLEEN KHAN V ([id number]) 1960 F Date Time Provider Department 03/06/18 3:00 PM Sanjay ABBASI) FAMPWS During your visit today, we recorded the following information about you: Temperature Pulse Respiration Blood pressure 99.2 degrees 96/minute 16/minute 110/68 Weight 159.2 kg Angeline Abbasi PA-C 03/06/2018 3:21 PM Signed 58 year old female with c/o recurrence of cellulitis in buttock started with soreness last night, red this morning. Low grade fever 100.4F at home, chilling, mildly nauseated. No vomiting. Was admitted with sepsis in August. Treated with Levaquiin IV, consult ID, had failed outpatient clindamycin, keflex. Hospitalized also 08/03/17 after failing clindamycin outpatient. Multiple prior episodes with cellulitis same area for several years. Had CT 09/04 abd and pelvis without evidence of abscess. Controlled DM2, hgba1c 5.7 01/26/18 HISTORIES FAMILY HISTORY Problem Relation Age of Onset - Hypertension Mother - Heart Mother concha stroke - Diabetes Mother - Stroke Mother Massive- - Arthritis Mother Osteoarthritis - Hypertension Father - COPD Father - Hypertension Sister 2 - Hypertension Brother 3 - Heart Brother triple bypass at 48 - Heart Maternal Aunt - Heart Maternal Uncle - Diabetes Brother 3 Brother's with diabetes - Diabetes Sister - Arthritis Sister - Arthritis Brother - Arthritis Brother - Arthritis Brother PAST MEDICAL HISTORY Diagnosis Date - Abnormal glandular Papanicolaou smear of cervix 05/30/05 ABNL GLANDULAR PAP SMEAR CERVIX - Acute gastritis without mention of hemorrhage - Anxiety state, unspecified - Arrhythmia - Chronic cholecystitis - Chronic obstructive pulmonary disease (COPD) (HCC) - Congestive heart failure (HCC) 10/03/2011 - Diabetes (HCC) - diabetes II 2010 - Diaphragmatic hernia without mention of obstruction or gangrene - Dysthymic disorder Depression (non-psychotic) - Esophageal reflux - Essential hypertension, benign - Generalized OA - Localized osteoarthrosis not specified whether primary or secondary, lower leg - Major depressive disorder, recurrent episode - Mucous polyp of cervix 07/19/05 - Other and unspecified anterior pituitary hyperfunction 10/13/05 elevated prolactin level-was normal in 2011 - PMH - PAST MEDICAL HISTORY OF sleep apnea - PMH - PAST MEDICAL HISTORY OF sleep apnea - SVT (supraventricular tachycardia) (HCC) - 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 PAST SURGICAL HISTORY Procedure Laterality Date - CERVICAL BIOPSY OR EXCISION 07/19/05 endocervical polyp - COLONOSCOP W/ OR W/O BRS SPEC 01/09/2012 Colonoscopy repeat 10 years - COLPOSCOPY (VAGINOSCOPY) Colposcopy - EGD W/O [facility] SPECIMEN W/BX 01/16/07 - EGD W/O OR W/BRUSH/WASH 01/09/2012 EGD - HYSTEROSCOPY DX 12/17/2014 [facility] - LAP CHOLECYSTECT/CHOLANGIOGRAPHY 05/15/08 Social History Marital status: Single Spouse name: Years of education: 9 Number of children: 0 Occupational 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 Social History Main Topics Smoking status: Former Smoker Packs/day: 1.00 Years: 15.00 Types: Cigarettes Quit date: 12/20/1994 Smokeless tobacco: Never Used Alcohol use: No Drug use: No Sexual activity: No ACTIVE PROBLEM LIST Anxiety State Essential Hypertension, Benign ABNL GLANDULAR PAP SMEAR CERVIX HYPERPROLACTINEMIA Irregular Menstrual Cycle Esophageal Reflux Diaphragmatic Hernia Without Mention of Obstruction Or Gangrene Morbid Obesity (Hcc) Obstructive Sleep Apnea Svt (Supraventricular Tachycardia) (Hcc) Congestive Heart Failure (Hcc) Spondylolisthesis Lumbar Facet Arthropathy Ddd (Degenerative Disc Disease), Lumbar Ddd (Degenerative Disc Disease), Cervical Dm (Diabetes Mellitus) (Hcc) Pmb (Postmenopausal Bleeding) Dysthymia Major depressive disorder, recurrent episode, moderate (HCC) Pain Disorder With Psychological Factors Diffuse Myofascial Pain Syndrome Bilateral Primary Osteoarthritis of Knee Liver Disease Umbilical Hernia Without Obstruction and Without Gangrene Current Outpatient Prescriptions: baclofen (LIORESAL) 10 mg tablet Take 1 tablet by mouth twice daily. Disp: 60 tablet Rfl: 1 insulin glargine (BASAGLAR KWIKPEN U-100 INSULIN) 100 unit/mL (3 mL) inpn Inject 10 Units subcutaneously daily at bedtime. May increase dose by 1 unit every 3 days if average FBG >130 Disp: Rfl: 0 gabapentin (NEURONTIN) 300 mg capsule Take 1 capsule by mouth twice daily for 90 days. Disp: 60 capsule Rfl: 2 nabumetone (RELAFEN) 500 mg tablet Take 1 tablet by mouth once daily. TAKE WITH FOOD Disp: 30 tablet Rfl: 2 cholecalciferol, Vitamin D3, (VITAMIN D3) 50,000 unit cap capsule Take 1 capsule by mouth once each week. Disp: Rfl: 0 potassium chloride ER (K-DUR, KLOR-CON) 10 mEq tablet Take 1 tablet by mouth once daily. Disp: 60 tablet Rfl: 5 polyethylene glycol 3350 (MIRALAX, GLYCOLAX) 17 gram/dose powder Take 17 g by mouth once daily. Disp: 1 Bottle Rfl: 11 nystatin (MYCOSTATIN) cream Apply 1 application to affected area twice daily. Disp: 1 Tube Rfl: 1 spironolactone (ALDACTONE) 25 mg tablet Take 1 tablet by mouth once daily. Disp: 90 tablet Rfl: 3 ranitidine (ZANTAC) 150 mg tablet Take 1 tablet by mouth twice daily. Disp: 180 tablet Rfl: 3 furosemide (LASIX) 20 mg tablet Take 1 tablet by mouth once daily. Disp: 90 tablet Rfl: 3 DULoxetine (CYMBALTA) 60 mg capsule Take 1 capsule by mouth once daily. Disp: 90 capsule Rfl: 3 primidone (MYSOLINE) 50 mg tablet TAKE ONE TABLET ONCE DAILY AT BEDTIME Disp: 30 tablet Rfl: 11 HYDROcodone-acetaminophen (NORCO) 5-325 mg per tablet TAKE ONE TABLET TWICE DAILY Disp: Rfl: traZODone (DESYREL) 50 mg tablet Take 0.5 tablets by mouth daily at bedtime. Disp: 30 tablet Rfl: 5 ARIPiprazole (ABILIFY) 10 mg tablet Take 1 tablet by mouth once daily. Disp: 30 tablet Rfl: 5 nitroglycerin sublingual (NITROQUICK) 0.4 mg SL tablet Dissolve 1 tablet under the tongue as needed. FOR CHEST PAIN. IF NO RELIEF CALL 911 Disp: 25 tablet Rfl: 6 aspirin, enteric coated (ECOTRIN LOW STRENGTH) 81 mg EC tablet Take 1 tablet by mouth once daily. Disp: Rfl: 0 furosemide (LASIX) 0.5 mg/mL syrg DAILY Disp: Rfl: blood sugar diagnostic (BLOOD GLUCOSE TEST) test strip Test blood sugars up to 4 times daily as directed. Dx: Type 2 DM - Controlled E11.9 Insulin: No Disp: 100 Strip Rfl: 11 cholecalciferol, vitamin D3, 50,000 unit tab Take 1 tablet by mouth once each week for 8 doses. Disp: 4 tablet Rfl: 1 Blood-Glucose Meter monitoring kit Glucose Meter of Choice - Kit - Dx: Type 2 DM - Controlled E11.9 Use twice daily as directed Disp: 1 Each Rfl: 0 Insulin Hamlin, Disposable, (BD ULTRA-FINE MADI PEN NEEDLE) 32 gauge x 5/32 ndle Use one needle for each dose. 1/day. Disp: 100 Each Rfl: 11 lancets (TRUEPLUS LANCETS) 30 gauge misc Test twice daily Dx: 250.02 Disp: 200 Each Rfl: 4 No current facility-administered medications for this visit. FAMILIA/ARB MED PRESCRIBED due on 01/14/1978 BP CONTROLLED (<130/80) due on 01/14/1978 DTAP,TDAP,TD(1 - Tdap) due on 02/08/2007 MAMMOGRAM due on 11/16/2016 EXAM: BP 110/68 Pulse 96 Temp 37.3 ?C (99.2 ?F) (Tympanic) Resp 16 Wt (!) 159.2 kg (351 lb) LMP 12/11/2008 BMI 66.18 kg/m? Pleasant morbidly obese adult woman in no acute distress. Alert and oriented all spheres. Normal affect and cognition. Speech normal. No deficits to learning or comprehension. Skin warm, dry, pink to lips and nailbeds. Normal turgor. Respirations regular and unlabored. HEENT WNL. TM's clear. Nose and oropharynx free from injection or lesion. No cervical lymph nodes. Thyroid non-tender, no masses Chest CTA. HRRR without murmur or gallop. Left buttock with indurated farheen with pink erythema over 10cm area into sacrum. Tender. No streaks. Extrem: no clubbing, cyanosis, edema. Extremities are warm and pink with prompt capillary refill. ASSESSMENT/PLAN: 1. Cellulitis of buttock - ICD9: 682.5, ICD10: L03.317 Initially refused to go to ED. Was going treat with outpatient levaquin. Discussed hx with sepsis r/t cellulitis with this pattern and low grade temp. Recommend go to [facility] ED and be admitted for IV ATB. She relunctantly agrees. Report called to [facility] ED. She is safe for personal transport. Sanjay Abbasi PA-C Referring Provider: SELF [200] Allergies As of Date: 03/06/2018 Noted Allergy Reaction LYRICA (PREGABALIN) 08/05/2012 10 - Anaphylaxis Comments: Not sure if accurate. Can take gabapentin. Patient is unsure of reaction. ACCUPRIL (QUINAPRIL HCL) 08/12/2005 5 - Intolerance Comments: dizziness AMLODIPINE 04/24/2008 7 - Swelling Comments: Leg edema ATENOLOL 09/29/2010 7 - Swelling ATORVASTATIN 11/01/2017 5 - Intolerance Comments: Muscle cramps and weakness EFFEXOR (VENLAFAXINE HCL) 09/22/2005 Comments: swelling high blood pressure JANUVIA (SITAGLIPTIN) 09/21/2011 8 - GI Upset 14 - Other: See Comments Comments: Patient states she couldn't eat METOPROLOL 09/21/2009 7 - Swelling MOBIC (MELOXICAM) 08/12/2005 8 - GI Upset PROZAC (FLUOXETINE HCL) 08/12/2005 5 - Intolerance Comments: tremor RISPERIDONE 12/22/2009 1 - Mental Status Change SEROQUEL (QUETIAPINE FUMARATE) 10/05/2006 Comments: hypertension,swelling VANCOMYCIN 08/10/2017 9 - Itching 14 - Other: See Comments Comments: red all over VIOXX (ROFECOXIB) 08/12/2005 8 - GI Upset WELLBUTRIN (BUPROPION HCL) 08/12/2005 5 - Intolerance Comments: nightmares Date Reviewed: 03/06/2018 Reviewed by: Kate Brunner LPN - Fully Assessed Reason for Visit: Edema [39] Cmt: cellulitis on buttocks Reason For Visit History Recorded Primary Visit Diagnosis:Cellulitis of buttock [L03.317] Order(s):levoFLOXacin (LEVAQUIN) 500 mg tabletTake 1 tablet by mouth once daily for 10 days.Disp: 10 tabletRfl: 0 Prescriptions as of 03/06/2018 Sig: BACLOFEN 10 MG TABLET Take 1 tablet by mouth twice * INSULIN GLARGINE (U-100) 100 * Inject 10 Units subcutaneousl* GABAPENTIN 300 MG CAPSULE Take 1 capsule by mouth twice* NABUMETONE 500 MG TABLET Take 1 tablet by mouth once d* CHOLECALCIFEROL (VITAMIN D3) * Take 1 capsule by mouth once * POTASSIUM CHLORIDE ER 10 MEQ * Take 1 tablet by mouth once d* POLYETHYLENE GLYCOL 3350 17 G* Take 17 g by mouth once daily. NYSTATIN 100,000 UNIT/GRAM TO* Apply 1 application to affect* SPIRONOLACTONE 25 MG TABLET Take 1 tablet by mouth once d* RANITIDINE 150 MG TABLET Take 1 tablet by mouth twice * FUROSEMIDE 20 MG TABLET Take 1 tablet by mouth once d* DULOXETINE 60 MG CAPSULE,JODI* Take 1 capsule by mouth once * PRIMIDONE 50 MG TABLET TAKE ONE TABLET ONCE DAILY AT* HYDROCODONE 5 MG-ACETAMINOPHE* TAKE ONE TABLET TWICE DAILY TRAZODONE 50 MG TABLET Take 0.5 tablets by mouth padmini* ARIPIPRAZOLE 10 MG TABLET Take 1 tablet by mouth once d* NITROGLYCERIN 0.4 MG SUBLINGU* Dissolve 1 tablet under the t* ASPIRIN 81 MG TABLET,DELAYED * Take 1 tablet by mouth once d* LEVOFLOXACIN 500 MG TABLET Take 1 tablet by mouth once d* FUROSEMIDE 0.5 MG/ML PEDIATRI* DAILY BLOOD SUGAR DIAGNOSTIC STRIPS Test blood sugars up to 4 tiara* CHOLECALCIFEROL (VITAMIN D3) * Take 1 tablet by mouth once e* BLOOD-GLUCOSE METER KIT Glucose Meter of Choice - Kit* PEN NEEDLE, DIABETIC 32 GAUGE* Use one needle for each dose.* LANCETS 30 GAUGE Test twice daily Dx: 250.02 Problem List As Of Date 03/06/2018 Noted Resolved Major depressive disorder, recurrent episode, u*INVALID FOR*11/24/2014 More... Anxiety state [F41.1] INVALID FOR* BENIGN HYPERTENSION [I10] INVALID FOR* OSTEOARTHROS NOS-UNSPEC [M19.90] INVALID FOR*02/07/2007 ABNL GLANDULAR PAP SMEAR CERVIX [R87.619] INVALID FOR* HYPERPROLACTINEMIA [E22.9] INVALID FOR* IRREGULAR MENSTRUATION [N92.6] INVALID FOR* ESOPHAGEAL REFLUX [K21.9] INVALID FOR* ACUTE GASTRITIS W/O HEMORRHAGE [K29.00] INVALID FOR*02/07/2007 DIAPHRAGMATIC HERNIA [K44.9] INVALID FOR* Unspecified gastritis and gastroduodenitis with*INVALID FOR*07/24/2016 Localized osteoarthrosis not specified whether *INVALID FOR*07/24/2016 More... Pain in joint, site unspecified [M25.50] INVALID FOR*07/24/2016 [facility]*INVALID FOR*11/29/2011 Class: Chronic More... Routine gynecological examination [Z01.419] INVALID FOR*11/29/2011 Class: Chronic More... More... Morbid obesity [E66.01] INVALID FOR* Hyperprolactinemia [E22.1] INVALID FOR*01/30/2012 Obstructive sleep apnea [G47.33] INVALID FOR* More... Medication side effects [T88.7XXA] INVALID FOR*08/10/2017 SVT (supraventricular tachycardia) [I47.1] Type II or unspecified type diabetes mellitus w*INVALID FOR*04/10/2012 More... Congestive heart failure [I50.9] INVALID FOR* Spondylolisthesis [M43.10] INVALID FOR* Lumbar facet arthropathy [M47.816] INVALID FOR* DDD (degenerative disc disease), lumbar [M51.36]INVALID FOR* Diabetes mellitus [E11.9] INVALID FOR*11/24/2014 DDD (degenerative disc disease), cervical [M50.*INVALID FOR* DM (diabetes mellitus) (HCC) [E11.9] INVALID FOR* PMB (postmenopausal bleeding) [N95.0] INVALID FOR* Dysthymia [F34.1] INVALID FOR* Major depressive disorder, recurrent episode, m*INVALID FOR* More... Pain disorder with psychological factors [F45.4*INVALID FOR* Diffuse myofascial pain syndrome [M79.18] INVALID FOR* Bilateral primary osteoarthritis of knee [M17.0]INVALID FOR* Obesity, Class III, BMI >= 40 [E66.01] INVALID FOR*10/20/2017 Liver disease [K76.9] INVALID FOR* More... Umbilical hernia without obstruction and withou*INVALID FOR* More... Prescriptions ordered this encounter Disp Refills Start End LEVOFLOXACIN 500 MG TABLET 10 t* 0 03/06/2018 03/16/2018 Route: ORAL Sig: Take 1 tablet by mouth once daily for 10 days. Encounter Status:Closed by Sanjay ABBASI PA-C on 03/06/18 PROGRESS Observed: 03/06/2018 Status: COMPLETED Source: [place] 2:52 PM [facility] REPOSITORY HNO ID: [id number] Author: Sanjay Gaspar (Carlos) Elroy Service: (none) Author Type: Physician Chemical Recovery Operator Type: Progress Notes Filed: 03/06/2018 3:21 PM Note Text: 58 year old female with c/o recurrence of cellulitis in buttock started with soreness last night, red this morning. Low grade fever 100.4F at home, chilling, mildly nauseated. No vomiting. Was admitted with sepsis in August. Treated with Levaquiin IV, consult ID, had failed outpatient clindamycin, keflex. Hospitalized also 08/03/17 after failing clindamycin outpatient. Multiple prior episodes with cellulitis same area for several years. Had CT 09/04 abd and pelvis without evidence of abscess. Controlled DM2, hgba1c 5.7 01/26/18 HISTORIES FAMILY HISTORY Problem Relation Age of Onset - Hypertension Mother - Heart Mother concha stroke - Diabetes Mother - Stroke Mother Massive- - Arthritis Mother Osteoarthritis - Hypertension Father - COPD Father - Hypertension Sister 2 - Hypertension Brother 3 - Heart Brother triple bypass at 48 - Heart Maternal Aunt - Heart Maternal Uncle - Diabetes Brother 3 Brother's with diabetes - Diabetes Sister - Arthritis Sister - Arthritis Brother - Arthritis Brother - Arthritis Brother PAST MEDICAL HISTORY Diagnosis Date - Abnormal glandular Papanicolaou smear of cervix 05/30/05 ABNL GLANDULAR PAP SMEAR CERVIX - Acute gastritis without mention of hemorrhage - Anxiety state, unspecified - Arrhythmia - Chronic cholecystitis - Chronic obstructive pulmonary disease (COPD) (HCC) - Congestive heart failure (HCC) 10/03/2011 - Diabetes (HCC) - diabetes II 2010 - Diaphragmatic hernia without mention of obstruction or gangrene - Dysthymic disorder Depression (non-psychotic) - Esophageal reflux - Essential hypertension, benign - Generalized OA - Localized osteoarthrosis not specified whether primary or secondary, lower leg - Major depressive disorder, recurrent episode - Mucous polyp of cervix 07/19/05 - Other and unspecified anterior pituitary hyperfunction 10/13/05 elevated prolactin level-was normal in 2012 - PMH - PAST MEDICAL HISTORY OF sleep apnea - PMH - PAST MEDICAL HISTORY OF sleep apnea - SVT (supraventricular tachycardia) (HCC) - 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 PAST SURGICAL HISTORY Procedure Laterality Date - CERVICAL BIOPSY OR EXCISION 07/19/05 endocervical polyp - COLONOSCOP W/ OR W/O [facility] SPEC 01/09/2012 Colonoscopy repeat 10 years - COLPOSCOPY (VAGINOSCOPY) Colposcopy - EGD W/O [facility] SPECIMEN W/BX 01/16/07 - EGD W/O OR W/BRUSH/WASH 01/09/2012 EGD - HYSTEROSCOPY DX 12/17/2014 [facility] - LAP CHOLECYSTECT/CHOLANGIOGRAPHY 05/15/08 Social History Marital status: Single Spouse name: Years of education: 9 Number of children: 0 Occupational 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 Social History Main Topics Smoking status: Former Smoker Packs/day: 1.00 Years: 15.00 Types: Cigarettes Quit date: 12/20/1994 Smokeless tobacco: Never Used Alcohol use: No Drug use: No Sexual activity: No ACTIVE PROBLEM LIST Anxiety State Essential Hypertension, Benign ABNL GLANDULAR PAP SMEAR CERVIX HYPERPROLACTINEMIA Irregular Menstrual Cycle Esophageal Reflux Diaphragmatic Hernia Without Mention of Obstruction Or Gangrene Morbid Obesity (Hcc) Obstructive Sleep Apnea Svt (Supraventricular Tachycardia) (Hcc) Congestive Heart Failure (Hcc) Spondylolisthesis Lumbar Facet Arthropathy Ddd (Degenerative Disc Disease), Lumbar Ddd (Degenerative Disc Disease), Cervical Dm (Diabetes Mellitus) (Hcc) Pmb (Postmenopausal Bleeding) Dysthymia Major depressive disorder, recurrent episode, moderate (HCC) Pain Disorder With Psychological Factors Diffuse Myofascial Pain Syndrome Bilateral Primary Osteoarthritis of Knee Liver Disease Umbilical Hernia Without Obstruction and Without Gangrene Current Outpatient Prescriptions: baclofen (LIORESAL) 10 mg tablet Take 1 tablet by mouth twice daily. Disp: 60 tablet Rfl: 1 insulin glargine (BASAGLAR KWIKPEN U-100 INSULIN) 100 unit/mL (3 mL) inpn Inject 10 Units subcutaneously daily at bedtime. May increase dose by 1 unit every 3 days if average FBG >130 Disp: Rfl: 0 gabapentin (NEURONTIN) 300 mg capsule Take 1 capsule by mouth twice daily for 90 days. Disp: 60 capsule Rfl: 2 nabumetone (RELAFEN) 500 mg tablet Take 1 tablet by mouth once daily. TAKE WITH FOOD Disp: 30 tablet Rfl: 2 cholecalciferol, Vitamin D3, (VITAMIN D3) 50,000 unit cap capsule Take 1 capsule by mouth once each week. Disp: Rfl: 0 potassium chloride ER (K-DUR, KLOR-CON) 10 mEq tablet Take 1 tablet by mouth once daily. Disp: 60 tablet Rfl: 5 polyethylene glycol 3350 (MIRALAX, GLYCOLAX) 17 gram/dose powder Take 17 g by mouth once daily. Disp: 1 Bottle Rfl: 11 nystatin (MYCOSTATIN) cream Apply 1 application to affected area twice daily. Disp: 1 Tube Rfl: 1 spironolactone (ALDACTONE) 25 mg tablet Take 1 tablet by mouth once daily. Disp: 90 tablet Rfl: 3 ranitidine (ZANTAC) 150 mg tablet Take 1 tablet by mouth twice daily. Disp: 180 tablet Rfl: 3 furosemide (LASIX) 20 mg tablet Take 1 tablet by mouth once daily. Disp: 90 tablet Rfl: 3 DULoxetine (CYMBALTA) 60 mg capsule Take 1 capsule by mouth once daily. Disp: 90 capsule Rfl: 3 primidone (MYSOLINE) 50 mg tablet TAKE ONE TABLET ONCE DAILY AT BEDTIME Disp: 30 tablet Rfl: 11 HYDROcodone-acetaminophen (NORCO) 5-325 mg per tablet TAKE ONE TABLET TWICE DAILY Disp: Rfl: traZODone (DESYREL) 50 mg tablet Take 0.5 tablets by mouth daily at bedtime. Disp: 30 tablet Rfl: 5 ARIPiprazole (ABILIFY) 10 mg tablet Take 1 tablet by mouth once daily. Disp: 30 tablet Rfl: 5 nitroglycerin sublingual (NITROQUICK) 0.4 mg SL tablet Dissolve 1 tablet under the tongue as needed. FOR CHEST PAIN. IF NO RELIEF CALL 911 Disp: 25 tablet Rfl: 6 aspirin, enteric coated (ECOTRIN LOW STRENGTH) 81 mg EC tablet Take 1 tablet by mouth once daily. Disp: Rfl: 0 furosemide (LASIX) 0.5 mg/mL syrg DAILY Disp: Rfl: blood sugar diagnostic (BLOOD GLUCOSE TEST) test strip Test blood sugars up to 4 times daily as directed. Dx: Type 2 DM - Controlled E11.9 Insulin: No Disp: 100 Strip Rfl: 11 cholecalciferol, vitamin D3, 50,000 unit tab Take 1 tablet by mouth once each week for 8 doses. Disp: 4 tablet Rfl: 1 Blood-Glucose Meter monitoring kit Glucose Meter of Choice - Kit - Dx: Type 2 DM - Controlled E11.9 Use twice daily as directed Disp: 1 Each Rfl: 0 Insulin [place], Disposable, (BD ULTRA-FINE MADI PEN NEEDLE) 32 gauge x 5/32 ndle Use one needle for each dose. 1/day. Disp: 100 Each Rfl: 11 lancets (TRUEPLUS LANCETS) 30 gauge misc Test twice daily Dx: 250.02 Disp: 200 Each Rfl: 4 No current facility-administered medications for this visit. FAMILIA/ARB MED PRESCRIBED due on 01/14/1978 BP CONTROLLED (<130/80) due on 01/14/1978 DTAP,TDAP,TD(1 - Tdap) due on 02/08/2007 MAMMOGRAM due on 11/16/2016 EXAM: BP 110/68 Pulse 96 Temp 37.3 ?C (99.2 ?F) (Tympanic) Resp 16 Wt (!) 159.2 kg (351 lb) LMP 12/11/2008 BMI 66.18 kg/m? Pleasant morbidly obese adult woman in no acute distress. Alert and oriented all spheres. Normal affect and cognition. Speech normal. No deficits to learning or comprehension. Skin warm, dry, pink to lips and nailbeds. Normal turgor. Respirations regular and unlabored. HEENT WNL. TM's clear. Nose and oropharynx free from injection or lesion. No cervical lymph nodes. Thyroid non-tender, no masses Chest CTA. HRRR without murmur or gallop. Left buttock with indurated farheen with pink erythema over 10cm area into sacrum. Tender. No streaks. Extrem: no clubbing, cyanosis, edema. Extremities are warm and pink with prompt capillary refill. ASSESSMENT/PLAN: 1. Cellulitis of buttock - ICD9: 682.5, ICD10: L03.317 Initially refused to go to ED. Was going treat with outpatient levaquin. Discussed hx with sepsis r/t cellulitis with this pattern and low grade temp. Recommend go to [facility] ED and be admitted for IV ATB. She relunctantly agrees. Report called to [facility] ED. She is safe for personal transport. Sanjay Abbasi PA-C PROGRESS Observed: 03/05/2018 Status: COMPLETED Source: [place] 10:02 AM [facility] REPOSITORY HNO ID: [id number] Author: Sherry Diaz Service: (none) Author Type: Psychologist Type: Progress Notes Filed: 03/07/2018 1:17 PM Note Text: [facility] Progress Note March 05, 2018 [facility]: [facility] BILLING CODE: Flavio CPT Code: 06292 Psychotherapy 38-52 minutes Time initiated session: 10:00 AM to 11:00 AM Date of First Session: 01/30/2018 (initial evaluation) Session #: 2 Collateral Parties Present: none. Subjective: Patient reported continued adherence to dietary recommendations since the previous session. She explained that she has maintained a 1200 calorie diet, implemented use of protein shakes as meal replacements, increased walking, and eliminated binge eating episodes. Facilitators of dietary change include stimulus control, building healthier habits, reading nutrition labels, paying attention to serving sizes, closing her kitchen at a certain time and buying a food scale. Ms. Khan also stated that her mood symptoms have continued to improve within the past month. She stated that she is looking forward to establishing care with a new psychiatrist and counselor over the next few weeks. She rated severity of depressive symptoms as 2-3/10 (10=worst) and anxiety symptoms as 0/10 (10=worst). She attributed improvements in mood symptoms to socializing more (e.g., playing games and puzzles with neighbors), losing weight, and exercising. Intervention Included: 1) Reviewed material from first session of [facility] group 2) Discussed symptoms of eating disorders including binge eating, night eating and graze eating, in addition to tools to help manage different eating patterns 3) Discussed importance of self-monitoring and reviewed how to keep accurate self-monitoring records 4) Set S.M.A.R.T. goals for the next week S.M.A.R.T. Goal Session 1: Walking for a total of 45-50 minutes, 3x/week Patient mood is: stable. Affect is: Appropriate. Patient denies any suicidal or homicidal ideation, plan or intent at this time. Objective: Patient reported improvement in emotional distress related to increasing use of adaptive coping strategies. She further acknowledged maintaining dietary changes and eliminating disordered eating behaviors. She would benefit from continued [facility]ST Start individual sessions. Assessment: Patient's weight at today's visit is 351.8 lbs. BMI = 66.38. Patient has lost 7 lbs since previous session (01/30/2018). Primary Diagnoses: Major Depressive Disorder, Recurrent, Moderate Anxiety Disorder NOS Binge Eating Disorder, Moderate, in partial remission Psychological Factors Affecting Morbid Obesity Personality Diagnoses:Deferred Global Assessment of Functionin-51 Moderate symptoms or moderate difficulty in social, occupational or school functioning. ? Current Outpatient Prescriptions: baclofen (LIORESAL) 10 mg tablet Take 1 tablet by mouth twice daily. insulin glargine (BASAGLAR KWIKPEN U-100 INSULIN) 100 unit/mL (3 mL) inpn Inject 10 Units subcutaneously daily at bedtime. May increase dose by 1 unit every 3 days if average FBG >130 gabapentin (NEURONTIN) 300 mg capsule Take 1 capsule by mouth twice daily for 90 days. nabumetone (RELAFEN) 500 mg tablet Take 1 tablet by mouth once daily. TAKE WITH FOOD cholecalciferol, Vitamin D3, (VITAMIN D3) 50,000 unit cap capsule Take 1 capsule by mouth once each week. furosemide (LASIX) 0.5 mg/mL syrg DAILY blood sugar diagnostic (BLOOD GLUCOSE TEST) test strip Test blood sugars up to 4 times daily as directed. Dx: Type 2 DM - Controlled E11.9 Insulin: No cholecalciferol, vitamin D3, 50,000 unit tab Take 1 tablet by mouth once each week for 8 doses. potassium chloride ER (K-DUR, KLOR-CON) 10 mEq tablet Take 1 tablet by mouth once daily. polyethylene glycol 3350 (MIRALAX, GLYCOLAX) 17 gram/dose powder Take 17 g by mouth once daily. Blood-Glucose Meter monitoring kit Glucose Meter of Choice - Kit - Dx: Type 2 DM - Controlled E11.9 Use twice daily as directed nystatin (MYCOSTATIN) cream Apply 1 application to affected area twice daily. spironolactone (ALDACTONE) 25 mg tablet Take 1 tablet by mouth once daily. ranitidine (ZANTAC) 150 mg tablet Take 1 tablet by mouth twice daily. furosemide (LASIX) 20 mg tablet Take 1 tablet by mouth once daily. DULoxetine (CYMBALTA) 60 mg capsule Take 1 capsule by mouth once daily. primidone (MYSOLINE) 50 mg tablet TAKE ONE TABLET ONCE DAILY AT BEDTIME Insulin Hamlin, Disposable, (BD ULTRA-FINE MADI PEN NEEDLE) 32 gauge x 32 ndle Use one needle for each dose. 1/day. HYDROcodone-acetaminophen (NORCO) 5-325 mg per tablet TAKE ONE TABLET TWICE DAILY lancets (TRUEPLUS LANCETS) 30 gauge misc Test twice daily Dx: 250.02 traZODone (DESYREL) 50 mg tablet Take 0.5 tablets by mouth daily at bedtime. ARIPiprazole (ABILIFY) 10 mg tablet Take 1 tablet by mouth once daily. nitroglycerin sublingual (NITROQUICK) 0.4 mg SL tablet Dissolve 1 tablet under the tongue as needed. FOR CHEST PAIN. IF NO RELIEF CALL 911 aspirin, enteric coated (ECOTRIN LOW STRENGTH) 81 mg EC tablet Take 1 tablet by mouth once daily. No current facility-administered medications for this visit. Medication Changes: No change in medications Plan/Recommendations: 1) REQUIREMENTS FOR COMPLETING BEHAVIORAL HEALTH EVALUATION: *Documentation from current psychiatrist *Establish relationship with a psychologist and provide documentation of this to [facility] psychology (To schedule with [facility] Department of Psychiatry and Psychology, call [phone]) *[facility] Group attendance or equivalent individual treatment and [facility] psychology follow-up appointment after completion of group (To schedule with [facility] Binge eating group call [phone]) 2) The patient may benefit from the following during the surgery process: *Ongoing psychotropic medication management by Psychiatrist *Participation in a Weight Loss Surgery support group *Read Preparing for Weight Loss Surgery: Workbook (Treatments That Work) by Gee Magana, Aneudy Vargas, and Gemma Valiente ([employer], 2006) *Follow up with psychology as an inpatient if needed *Follow up with psychology at 1, 3, 6, 12 months and yearly thereafter as an outpatient *Do not use alcohol, tobacco, and street drugs for at least 6 months prior to and after surgery. ? 3) Insurance letter not completed at this time. Patient needs to complete additional preparation as outlined above. 4) PLAN FOR NEXT SESSION: Continue current treatment Number of weeks till next appointment: 1-2 weeks. Sherry Diaz, Ph.D., Licensed Esthetician Supervision comments: Reviewed above. Patient continues to work toward weight management goals as demonstrated by reduced binge eating. Mood has also improved, and she is scheduled to meet with mental health providers soon. I agree with the above impressions and plan. Reviewed in supervision. Recommend patient continue 1:1 [facility] sessions. Damaso Muniz, Ph.D., Psychologist RYAN Observed: 03/05/2018 Status: COMPLETED Source: [place] 10:00 AM [facility] REPOSITORY Office Visit (PSMN) KATHLEEN KHAN V ([id number]) 1960 F Date Time Provider Department 03/05/18 10:00 AM SHERRY DIAZ) [facility] During your visit today, we recorded the following information about you: Weight Height 159.6 kg 1.551 m Sherry Diaz PsyD 03/06/2018 11:12 AM Signed [facility] Bariatric Behavioral Services Progress Note March 05, 2018 [facility]: [facility] BILLING CODE: Flavio CPT Code: 20920 Psychotherapy 38-52 minutes Time initiated session: 10:00 AM to 11:00 AM Date of First Session: 01/30/2018 (initial evaluation) Session #: 2 Collateral Parties Present: none. Subjective: Patient reported continued adherence to dietary recommendations since the previous session. She explained that she has maintained a 1200 calorie diet, implemented use of protein shakes as meal replacements, increased walking, and eliminated binge eating episodes. Facilitators of dietary change include stimulus control, building healthier habits, reading nutrition labels, paying attention to serving sizes, closing her kitchen at a certain time and buying a food scale. Ms. Khan also stated that her mood symptoms have continued to improve within the past month. She stated that she is looking forward to establishing care with a new psychiatrist and counselor over the next few weeks. She rated severity of depressive symptoms as 2-3/10 (10=worst) and anxiety symptoms as 0/10 (10=worst). She attributed improvements in mood symptoms to socializing more (e.g., playing games and puzzles with neighbors), losing weight, and exercising. Intervention Included: 1) Reviewed material from first session of [facility] group 2) Discussed symptoms of eating disorders including binge eating, night eating and graze eating, in addition to tools to help manage different eating patterns 3) Discussed importance of self-monitoring and reviewed how to keep accurate self-monitoring records 4) Set S.M.A.R.T. goals for the next week S.M.A.R.T. Goal Session 1: Walking for a total of 45-50 minutes, 3x/week Patient mood is: stable. Affect is: Appropriate. Patient denies any suicidal or homicidal ideation, plan or intent at this time. Objective: Patient reported improvement in emotional distress related to increasing use of adaptive coping strategies. She further acknowledged maintaining dietary changes and eliminating disordered eating behaviors. She would benefit from continued [facility] individual sessions. Assessment: Patient's weight at today's visit is 351.8 lbs. BMI = 66.38. Patient has lost 7 lbs since previous session (01/30/2018). Primary Diagnoses: Major Depressive Disorder, Recurrent, Moderate Anxiety Disorder NOS Binge Eating Disorder, Moderate, in partial remission Psychological Factors Affecting Morbid Obesity Personality Diagnoses:Deferred Global Assessment of Functionin-51 Moderate symptoms or moderate difficulty in social, occupational or school functioning. ? Current Outpatient Prescriptions: baclofen (LIORESAL) 10 mg tablet Take 1 tablet by mouth twice daily. insulin glargine (BASAGLAR KWIKPEN U-100 INSULIN) 100 unit/mL (3 mL) inpn Inject 10 Units subcutaneously daily at bedtime. May increase dose by 1 unit every 3 days if average FBG >130 gabapentin (NEURONTIN) 300 mg capsule Take 1 capsule by mouth twice daily for 90 days. nabumetone (RELAFEN) 500 mg tablet Take 1 tablet by mouth once daily. TAKE WITH FOOD cholecalciferol, Vitamin D3, (VITAMIN D3) 50,000 unit cap capsule Take 1 capsule by mouth once each week. furosemide (LASIX) 0.5 mg/mL syrg DAILY blood sugar diagnostic (BLOOD GLUCOSE TEST) test strip Test blood sugars up to 4 times daily as directed. Dx: Type 2 DM - Controlled E11.9 Insulin: No cholecalciferol, vitamin D3, 50,000 unit tab Take 1 tablet by mouth once each week for 8 doses. potassium chloride ER (K-DUR, KLOR-CON) 10 mEq tablet Take 1 tablet by mouth once daily. polyethylene glycol 3350 (MIRALAX, GLYCOLAX) 17 gram/dose powder Take 17 g by mouth once daily. Blood-Glucose Meter monitoring kit Glucose Meter of Choice - Kit - Dx: Type 2 DM - Controlled E11.9 Use twice daily as directed nystatin (MYCOSTATIN) cream Apply 1 application to affected area twice daily. spironolactone (ALDACTONE) 25 mg tablet Take 1 tablet by mouth once daily. ranitidine (ZANTAC) 150 mg tablet Take 1 tablet by mouth twice daily. furosemide (LASIX) 20 mg tablet Take 1 tablet by mouth once daily. DULoxetine (CYMBALTA) 60 mg capsule Take 1 capsule by mouth once daily. primidone (MYSOLINE) 50 mg tablet TAKE ONE TABLET ONCE DAILY AT BEDTIME Insulin Hamlin, Disposable, (BD ULTRA-FINE MADI PEN NEEDLE) 32 gauge x 32 ndle Use one needle for each dose. 1/day. HYDROcodone-acetaminophen (NORCO) 5-325 mg per tablet TAKE ONE TABLET TWICE DAILY lancets (TRUEPLUS LANCETS) 30 gauge misc Test twice daily Dx: 250.02 traZODone (DESYREL) 50 mg tablet Take 0.5 tablets by mouth daily at bedtime. ARIPiprazole (ABILIFY) 10 mg tablet Take 1 tablet by mouth once daily. nitroglycerin sublingual (NITROQUICK) 0.4 mg SL tablet Dissolve 1 tablet under the tongue as needed. FOR CHEST PAIN. IF NO RELIEF CALL 911 aspirin, enteric coated (ECOTRIN LOW STRENGTH) 81 mg EC tablet Take 1 tablet by mouth once daily. No current facility-administered medications for this visit. Medication Changes: No change in medications Plan/Recommendations: 1) REQUIREMENTS FOR COMPLETING BEHAVIORAL HEALTH EVALUATION: *Documentation from current psychiatrist *Establish relationship with a psychologist and provide documentation of this to [facility] psychology (To schedule with [facility] Department of Psychiatry and Psychology, call [phone]) *[facility] Group attendance or equivalent individual treatment and [facility] psychology follow-up appointment after completion of group (To schedule with [facility] Binge eating group call [phone]) 2) The patient may benefit from the following during the surgery process: *Ongoing psychotropic medication management by Psychiatrist *Participation in a Weight Loss Surgery support group *Read Preparing for Weight Loss Surgery: Workbook (Treatments That Work) by Gee Magana, Aneudy Vargas, and Gemma Valiente ([employer], 2006) *Follow up with psychology as an inpatient if needed *Follow up with psychology at 1, 3, 6, 12 months and yearly thereafter as an outpatient *Do not use alcohol, tobacco, and street drugs for at least 6 months prior to and after surgery. ? 3) Insurance letter not completed at this time. Patient needs to complete additional preparation as outlined above. 4) PLAN FOR NEXT SESSION: Continue current treatment Number of weeks till next appointment: 1-2 weeks. Sherry Diaz, Ph.D., Licensed Esthetician Supervision comments: Reviewed above. Patient continues to work toward weight management goals as demonstrated by reduced binge eating. Mood has also improved, and she is scheduled to meet with mental health providers soon. I agree with the above impressions and plan. Reviewed in supervision. Recommend patient continue 1:1 [facility] sessions. Damaso Muniz, Ph.D., Psychologist Referring Provider: DAMASO MUNIZ (PHD) [[id number]] Allergies As of Date: 03/05/2018 Noted Allergy Reaction LYRICA (PREGABALIN) 08/05/2012 10 - Anaphylaxis Comments: Not sure if accurate. Can take gabapentin. Patient is unsure of reaction. ACCUPRIL (QUINAPRIL HCL) 08/12/2005 5 - Intolerance Comments: dizziness AMLODIPINE 04/24/2008 7 - Swelling Comments: Leg edema ATENOLOL 09/29/2010 7 - Swelling ATORVASTATIN 11/01/2017 5 - Intolerance Comments: Muscle cramps and weakness EFFEXOR (VENLAFAXINE HCL) 09/22/2005 Comments: swelling high blood pressure JANUVIA (SITAGLIPTIN) 09/21/2011 8 - GI Upset 14 - Other: See Comments Comments: Patient states she couldn't eat METOPROLOL 09/21/2009 7 - Swelling MOBIC (MELOXICAM) 08/12/2005 8 - GI Upset PROZAC (FLUOXETINE HCL) 08/12/2005 5 - Intolerance Comments: tremor RISPERIDONE 12/22/2009 1 - Mental Status Change SEROQUEL (QUETIAPINE FUMARATE) 10/05/2006 Comments: hypertension,swelling VANCOMYCIN 08/10/2017 9 - Itching 14 - Other: See Comments Comments: red all over VIOXX (ROFECOXIB) 08/12/2005 8 - GI Upset WELLBUTRIN (BUPROPION HCL) 08/12/2005 5 - Intolerance Comments: nightmares Date Reviewed: 01/17/2018 Reviewed by: Kate Brunner LPN - Fully Assessed Primary Visit Diagnosis:Major depressive disorder, recurrent, moderate (HCC) [F33.1] Other Visit Diagnoses:Anxiety disorder, unspecified type [F41.9] Binge-eating disorder, in partial remission, moderate [F50.81] Psychological factors affecting morbid obesity (HCC) [E66.01, F54] Prescriptions as of 03/05/2018 Sig: BACLOFEN 10 MG TABLET Take 1 tablet by mouth twice * INSULIN GLARGINE (U-100) 100 * Inject 10 Units subcutaneousl* GABAPENTIN 300 MG CAPSULE Take 1 capsule by mouth twice* NABUMETONE 500 MG TABLET Take 1 tablet by mouth once d* CHOLECALCIFEROL (VITAMIN D3) * Take 1 capsule by mouth once * FUROSEMIDE 0.5 MG/ML PEDIATRI* DAILY BLOOD SUGAR DIAGNOSTIC STRIPS Test blood sugars up to 4 tiara* CHOLECALCIFEROL (VITAMIN D3) * Take 1 tablet by mouth once e* POTASSIUM CHLORIDE ER 10 MEQ * Take 1 tablet by mouth once d* POLYETHYLENE GLYCOL 3350 17 G* Take 17 g by mouth once daily. BLOOD-GLUCOSE METER KIT Glucose Meter of Choice - Kit* NYSTATIN 100,000 UNIT/GRAM TO* Apply 1 application to affect* SPIRONOLACTONE 25 MG TABLET Take 1 tablet by mouth once d* RANITIDINE 150 MG TABLET Take 1 tablet by mouth twice * FUROSEMIDE 20 MG TABLET Take 1 tablet by mouth once d* DULOXETINE 60 MG CAPSULE,JODI* Take 1 capsule by mouth once * PRIMIDONE 50 MG TABLET TAKE ONE TABLET ONCE DAILY AT* PEN NEEDLE, DIABETIC 32 GAUGE* Use one needle for each dose.* HYDROCODONE 5 MG-ACETAMINOPHE* TAKE ONE TABLET TWICE DAILY LANCETS 30 GAUGE Test twice daily Dx: 250.02 TRAZODONE 50 MG TABLET Take 0.5 tablets by mouth padmini* ARIPIPRAZOLE 10 MG TABLET Take 1 tablet by mouth once d* NITROGLYCERIN 0.4 MG SUBLINGU* Dissolve 1 tablet under the t* ASPIRIN 81 MG TABLET,DELAYED * Take 1 tablet by mouth once d* Problem List As Of Date 03/05/2018 Noted Resolved Major depressive disorder, recurrent episode, u*INVALID FOR*11/24/2014 More... Anxiety state [F41.1] INVALID FOR* BENIGN HYPERTENSION [I10] INVALID FOR* OSTEOARTHROS NOS-UNSPEC [M19.90] INVALID FOR*02/07/2007 ABNL GLANDULAR PAP SMEAR CERVIX [R87.619] INVALID FOR* HYPERPROLACTINEMIA [E22.9] INVALID FOR* IRREGULAR MENSTRUATION [N92.6] INVALID FOR* ESOPHAGEAL REFLUX [K21.9] INVALID FOR* ACUTE GASTRITIS W/O HEMORRHAGE [K29.00] INVALID FOR*02/07/2007 DIAPHRAGMATIC HERNIA [K44.9] INVALID FOR* Unspecified gastritis and gastroduodenitis with*INVALID FOR*07/24/2016 Localized osteoarthrosis not specified whether *INVALID FOR*07/24/2016 More... Pain in joint, site unspecified [M25.50] INVALID FOR*07/24/2016 [facility] FOR*11/29/2011 Class: Chronic More... Routine gynecological examination [Z01.419] INVALID FOR*11/29/2011 Class: Chronic More... More... Morbid obesity [E66.01] INVALID FOR* Hyperprolactinemia [E22.1] INVALID FOR*01/30/2012 Obstructive sleep apnea [G47.33] INVALID FOR* More... Medication side effects [T88.7XXA] INVALID FOR*08/10/2017 SVT (supraventricular tachycardia) [I47.1] Type II or unspecified type diabetes mellitus w*INVALID FOR*04/10/2012 More... Congestive heart failure [I50.9] INVALID FOR* Spondylolisthesis [M43.10] INVALID FOR* Lumbar facet arthropathy [M47.816] INVALID FOR* DDD (degenerative disc disease), lumbar [M51.36]INVALID FOR* Diabetes mellitus [E11.9] INVALID FOR*11/24/2014 DDD (degenerative disc disease), cervical [M50.*INVALID FOR* DM (diabetes mellitus) (HCC) [E11.9] INVALID FOR* PMB (postmenopausal bleeding) [N95.0] INVALID FOR* Dysthymia [F34.1] INVALID FOR* Major depressive disorder, recurrent episode, m*INVALID FOR* More... Pain disorder with psychological factors [F45.4*INVALID FOR* Diffuse myofascial pain syndrome [M79.18] INVALID FOR* Bilateral primary osteoarthritis of knee [M17.0]INVALID FOR* Obesity, Class III, BMI >= 40 [E66.01] INVALID FOR*10/20/2017 Liver disease [K76.9] INVALID FOR* More... Umbilical hernia without obstruction and withou*INVALID FOR* More... Follow-up and Disposition History Recorded Encounter Status:Closed by DAMASO MUNIZ PHD on 03/07/18 OBSOLETE Observed: 03/04/2018 Status: COMPLETED Source: [place] 12:00 AM [facility] REPOSITORY [facility] KATHLEEN KHAN V ([id number]) 1960 F Date Time Provider Department 03/04/18 [facility] During your visit today, we recorded the following information about you: QUAN Bowling, [facility] 03/04/2018 8:52 AM Signed Patient has been identified by name and date of : Yes RX INSTRUCTIONS: Patient aware RX will be sent to pharmacy. No need to notify patient. Vero Romero PSR Estefani Bell LPN 03/04/2018 2:34 PM Signed Last OV: 01/17/18 Last RX: 01/01/18 Patient has been identified by name and date of : Yes Pending Prescriptions Disp Refills BACLOFEN 10 MG TABLET 60 tablet 1 Sig: Take 1 tablet by mouth twice daily. DWAINE: No RX INSTRUCTIONS: Patient aware RX will be sent to pharmacy. No need to notify patient. Estefani Bell LPN Allergies As of Date: 03/04/2018 Noted Allergy Reaction LYRICA (PREGABALIN) 08/05/2012 10 - Anaphylaxis Comments: Not sure if accurate. Can take gabapentin. Patient is unsure of reaction. ACCUPRIL (QUINAPRIL HCL) 08/12/2005 5 - Intolerance Comments: dizziness AMLODIPINE 04/24/2008 7 - Swelling Comments: Leg edema ATENOLOL 09/29/2010 7 - Swelling ATORVASTATIN 11/01/2017 5 - Intolerance Comments: Muscle cramps and weakness EFFEXOR (VENLAFAXINE HCL) 09/22/2005 Comments: swelling high blood pressure JANUVIA (SITAGLIPTIN) 09/21/2011 8 - GI Upset 14 - Other: See Comments Comments: Patient states she couldn't eat METOPROLOL 09/21/2009 7 - Swelling MOBIC (MELOXICAM) 08/12/2005 8 - GI Upset PROZAC (FLUOXETINE HCL) 08/12/2005 5 - Intolerance Comments: tremor RISPERIDONE 12/22/2009 1 - Mental Status Change SEROQUEL (QUETIAPINE FUMARATE) 10/05/2006 Comments: hypertension,swelling VANCOMYCIN 08/10/2017 9 - Itching 14 - Other: See Comments Comments: red all over VIOXX (ROFECOXIB) 08/12/2005 8 - GI Upset WELLBUTRIN (BUPROPION HCL) 08/12/2005 5 - Intolerance Comments: nightmares Date Reviewed: 01/17/2018 Reviewed by: Kate Brunner LPN - Fully Assessed Reason for Visit: Refill Request [94] Visit Diagnosis:Low back pain, unspecified back pain laterality, unspecified chronicity, with sciatica presence unspecified [M54.5] Order(s):baclofen (LIORESAL) 10 mg tabletTake 1 tablet by mouth twice daily.Disp: 60 tabletRfl: 1 Prescriptions as of 03/04/2018 Sig: BACLOFEN 10 MG TABLET Take 1 tablet by mouth twice * INSULIN GLARGINE (U-100) 100 * Inject 10 Units subcutaneousl* GABAPENTIN 300 MG CAPSULE Take 1 capsule by mouth twice* NABUMETONE 500 MG TABLET Take 1 tablet by mouth once d* CHOLECALCIFEROL (VITAMIN D3) * Take 1 capsule by mouth once * FUROSEMIDE 0.5 MG/ML PEDIATRI* DAILY BLOOD SUGAR DIAGNOSTIC STRIPS Test blood sugars up to 4 tiara* CHOLECALCIFEROL (VITAMIN D3) * Take 1 tablet by mouth once e* POTASSIUM CHLORIDE ER 10 MEQ * Take 1 tablet by mouth once d* POLYETHYLENE GLYCOL 3350 17 G* Take 17 g by mouth once daily. BLOOD-GLUCOSE METER KIT Glucose Meter of Choice - Kit* NYSTATIN 100,000 UNIT/GRAM TO* Apply 1 application to affect* SPIRONOLACTONE 25 MG TABLET Take 1 tablet by mouth once d* RANITIDINE 150 MG TABLET Take 1 tablet by mouth twice * FUROSEMIDE 20 MG TABLET Take 1 tablet by mouth once d* DULOXETINE 60 MG CAPSULE,JODI* Take 1 capsule by mouth once * PRIMIDONE 50 MG TABLET TAKE ONE TABLET ONCE DAILY AT* PEN NEEDLE, DIABETIC 32 GAUGE* Use one needle for each dose.* HYDROCODONE 5 MG-ACETAMINOPHE* TAKE ONE TABLET TWICE DAILY LANCETS 30 GAUGE Test twice daily Dx: 250.02 TRAZODONE 50 MG TABLET Take 0.5 tablets by mouth padmini* ARIPIPRAZOLE 10 MG TABLET Take 1 tablet by mouth once d* NITROGLYCERIN 0.4 MG SUBLINGU* Dissolve 1 tablet under the t* ASPIRIN 81 MG TABLET,DELAYED * Take 1 tablet by mouth once d* Problem List As Of Date 03/04/2018 Noted Resolved Major depressive disorder, recurrent episode, u*INVALID FOR*11/24/2014 More... Anxiety state [F41.1] INVALID FOR* BENIGN HYPERTENSION [I10] INVALID FOR* OSTEOARTHROS NOS-UNSPEC [M19.90] INVALID FOR*02/07/2007 ABNL GLANDULAR PAP SMEAR CERVIX [R87.619] INVALID FOR* HYPERPROLACTINEMIA [E22.9] INVALID FOR* IRREGULAR MENSTRUATION [N92.6] INVALID FOR* ESOPHAGEAL REFLUX [K21.9] INVALID FOR* ACUTE GASTRITIS W/O HEMORRHAGE [K29.00] INVALID FOR*02/07/2007 DIAPHRAGMATIC HERNIA [K44.9] INVALID FOR* Unspecified gastritis and gastroduodenitis with*INVALID FOR*07/24/2016 Localized osteoarthrosis not specified whether *INVALID FOR*07/24/2016 More... Pain in joint, site unspecified [M25.50] INVALID FOR*07/24/2016 [facility]*INVALID FOR*11/29/2011 Class: Chronic More... Routine gynecological examination [Z01.419] INVALID FOR*11/29/2011 Class: Chronic More... More... Morbid obesity [E66.01] INVALID FOR* Hyperprolactinemia [E22.1] INVALID FOR*01/30/2012 Obstructive sleep apnea [G47.33] INVALID FOR* More... Medication side effects [T88.7XXA] INVALID FOR*08/10/2017 SVT (supraventricular tachycardia) [I47.1] Type II or unspecified type diabetes mellitus w*INVALID FOR*04/10/2012 More... Congestive heart failure [I50.9] INVALID FOR* Spondylolisthesis [M43.10] INVALID FOR* Lumbar facet arthropathy [M47.816] INVALID FOR* DDD (degenerative disc disease), lumbar [M51.36]INVALID FOR* Diabetes mellitus [E11.9] INVALID FOR*11/24/2014 DDD (degenerative disc disease), cervical [M50.*INVALID FOR* DM (diabetes mellitus) (HCC) [E11.9] INVALID FOR* PMB (postmenopausal bleeding) [N95.0] INVALID FOR* Dysthymia [F34.1] INVALID FOR* Major depressive disorder, recurrent episode, m*INVALID FOR* More... Pain disorder with psychological factors [F45.4*INVALID FOR* Diffuse myofascial pain syndrome [M79.18] INVALID FOR* Bilateral primary osteoarthritis of knee [M17.0]INVALID FOR* Obesity, Class III, BMI >= 40 [E66.01] INVALID FOR*10/20/2017 Liver disease [K76.9] INVALID FOR* More... Umbilical hernia without obstruction and withou*INVALID FOR* More... Prescriptions ordered this encounter Disp Refills Start End BACLOFEN 10 MG TABLET 60 t* 1 03/04/2018 Route: ORAL Sig: Take 1 tablet by mouth twice daily. Medications Discontinued During This Encounter baclofen (LIORESAL) 10 mg tablet 60 t* 1 01/01/2018 03/04/2018 Sig: take 1 tablet by mouth twice a day Disc: Reason for discontinue is not on file. Encounter Status:Closed by VINCENT HERBERT MD on 03/04/18 PROGRESS Observed: 02/21/2018 Status: COMPLETED Source: [place] 2:30 PM [facility] [place] REPOSITORY HNO ID: [id number] Author: Viviana Pope (Pharmacist) Service: (none) Author Type: Pharmacist Type: Progress Notes Filed: 02/21/2018 4:34 PM Note Text: TELEPHONIC ENCOUNTER Patient consents to pharmacy collaborative practice agreement. REASON FOR CONSULT: DM? GOALS: A1c <?7% CONSULTING PROVIDER: Dr. Herbert?? Date of Consult: 06/2017 ? Kathleen Khan is a 57 year old female was last seen by PCP, Dr. Vincent Herbert MD on 12/17/17 - no med changes made. Also saw Micah Abbasi Pa-C, on 01/17 for suture removal. Had appt with general surgery on 01/30 to prepare for bariatric surgery. Subjective: Patient is presenting today for f/u pharmacotherapy management appointment for diabetes. Patient is preparing for bariatric surgery. At last PharmD visit on 02/06, patient was found to be occasionally doubling her dose of insulin based on her BG readings - PharmD counseled her to maintain consistent dosing and reduced dose to 10 units nightly. INTERIM HISTORY: Reports diabetes is going well Reports BG ranging from 80-120s Claims that taking a consistent dose of insulin is helpful Had 1 day when BG was 79 between breakfast and lunch, but nothing below that Patient prepping for bariatric surgery - still not scheduled yet Thinks surgery will be in April Past DM medications: Metformin IR and ER - GI intolerance (had been on it for years and tolerated it well but then it suddenly it started causing diarrhea; has tried getting back on metformin about 3 times since then) Glimepiride 2mg daily (self-stopped) ? Current DM Medications: Insulin glargine (Basaglar) 10?units QHS Linagliptin 5mg QAM ? Current HTN Medications: Furosemide 20mg once daily Spironolactone 25mg once daily ? Preventative Medications: ? On FAMILIA/ARB: No ? On Statin: Yes ? On ASA: Yes ROS: ? Patient denies CP, SOB, ARAIZA, blurred vision, dizziness or lightheadedness ? Patient denies symptoms of hypoglycemia (sweating, anxiety, palpitations, hunger, and tremor) ? Patient denies symptoms of hyperglycemia (polyuria, polydipsia, polyphagia) ? Patient denies potential medication adverse effects DIET/EXERCISE/SOCIAL Hx: ? No changes; still maintaining 1200 calorie diet to prep for bariatric surgery MEDICATIONS: ? Pill bottles are not present. ? Adherence: denies missed doses. ? Pharmacy: [facility]? Rx coverage: [employer]ource ? Affordability: no isues ? Diabetes supplies: [facility] brand ? Organization System: none ACTIVE PROBLEM LIST Anxiety State Essential Hypertension, Benign ABNL GLANDULAR PAP SMEAR CERVIX HYPERPROLACTINEMIA Irregular Menstrual Cycle Esophageal Reflux Diaphragmatic Hernia Without Mention of Obstruction Or Gangrene Morbid Obesity ([facility]) Obstructive Sleep Apnea Svt (Supraventricular Tachycardia) ([facility]) Congestive Heart Failure ([facility]) Spondylolisthesis Lumbar Facet Arthropathy Ddd (Degenerative Disc Disease), Lumbar Ddd (Degenerative Disc Disease), Cervical Dm (Diabetes Mellitus) ([facility]) Pmb (Postmenopausal Bleeding) Dysthymia Major depressive disorder, recurrent episode, moderate ([facility]) Pain Disorder With Psychological Factors Diffuse Myofascial Pain Syndrome Bilateral Primary Osteoarthritis of Knee Liver Disease Umbilical Hernia Without Obstruction and Without Gangrene PAST MEDICAL HISTORY Diagnosis Date - Abnormal glandular Papanicolaou smear of cervix 05/30/05 ABNL GLANDULAR PAP SMEAR CERVIX - Acute gastritis without mention of hemorrhage - Anxiety state, unspecified - Arrhythmia - Chronic cholecystitis - Chronic obstructive pulmonary disease (COPD) ([facility]) - Congestive heart failure ([facility]) 10/03/2011 - Diabetes ([facility]) - diabetes II 2010 - Diaphragmatic hernia without mention of obstruction or gangrene - Dysthymic disorder Depression (non-psychotic) - Esophageal reflux - Essential hypertension, benign - Generalized OA - Localized osteoarthrosis not specified whether primary or secondary, lower leg - Major depressive disorder, recurrent episode - Mucous polyp of cervix 07/19/05 - Other and unspecified anterior pituitary hyperfunction 10/13/05 elevated prolactin level-was normal in 2011 - PMH - PAST MEDICAL HISTORY OF sleep apnea - PMH - PAST MEDICAL HISTORY OF sleep apnea - SVT (supraventricular tachycardia) (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 ALLERGIES Allergen Reactions - Lyrica [Pregabalin] Anaphylaxis Not sure if accurate. Can take gabapentin. Patient is unsure of reaction. - Accupril [Quinapril* Intolerance dizziness - Amlodipine Swelling Leg edema - Atenolol Swelling - Atorvastatin Intolerance Muscle cramps and weakness - Effexor [Venlafaxin* swelling high blood pressure - Januvia [Sitaglipti* GI Upset, Other: See Comments Patient states she couldn't eat - Metoprolol Swelling - Mobic [Meloxicam] GI Upset - Prozac [Fluoxetine * Intolerance tremor - Risperidone Mental Status Change - Seroquel [Quetiapin* hypertension,swelling - Vancomycin Itching, Other: See Comments red all over - Vioxx [Rofecoxib] GI Upset - Wellbutrin [Bupropi* Intolerance nightmares Medication List Medication Directions Comments Action/Plan ARIPiprazole (ABILIFY) 10 mg tablet Take 1 tablet by mouth once daily. aspirin, enteric coated (ECOTRIN LOW STRENGTH) 81 mg EC tablet Take 1 tablet by mouth once daily. baclofen (LIORESAL) 10 mg tablet take 1 tablet by mouth twice a day blood sugar diagnostic (BLOOD GLUCOSE TEST) test strip Test blood sugars up to 4 times daily as directed. Dx: Type 2 DM - Controlled E11.9 Insulin: No Blood-Glucose Meter monitoring kit Glucose Meter of Choice - Kit - Dx: Type 2 DM - Controlled E11.9 Use twice daily as directed cholecalciferol, Vitamin D3, (VITAMIN D3) 50,000 unit cap capsule Take 1 capsule by mouth once each week. cholecalciferol, vitamin D3, 50,000 unit tab Take 1 tablet by mouth once each week for 8 doses. DULoxetine (CYMBALTA) 60 mg capsule Take 1 capsule by mouth once daily. furosemide (LASIX) 0.5 mg/mL syrg DAILY furosemide (LASIX) 20 mg tablet Take 1 tablet by mouth once daily. gabapentin (NEURONTIN) 300 mg capsule Take 1 capsule by mouth twice daily for 90 days. HYDROcodone-acetaminophen (NORCO) 5-325 mg per tablet TAKE ONE TABLET TWICE DAILY insulin glargine (BASAGLAR KWIKPEN U-100 INSULIN) 100 unit/mL (3 mL) inpn Inject 10 Units subcutaneously daily at bedtime. Insulin Hamlin, Disposable, (BD ULTRA-FINE MADI PEN NEEDLE) 32 gauge x ndle Use one needle for each dose. 1/day. lancets (TRUEPLUS LANCETS) 30 gauge misc Test twice daily Dx: 250.02 linagliptin (TRADJENTA) 5 mg tab Take 1 tablet by mouth once daily. nabumetone (RELAFEN) 500 mg tablet Take 1 tablet by mouth once daily. TAKE WITH FOOD nitroglycerin sublingual (NITROQUICK) 0.4 mg SL tablet Dissolve 1 tablet under the tongue as needed. FOR CHEST PAIN. IF NO RELIEF CALL 911 nystatin (MYCOSTATIN) cream Apply 1 application to affected area twice daily. polyethylene glycol 3350 (MIRALAX, GLYCOLAX) 17 gram/dose powder Take 17 g by mouth once daily. potassium chloride ER (K-DUR, KLOR-CON) 10 mEq tablet Take 1 tablet by mouth once daily. primidone (MYSOLINE) 50 mg tablet TAKE ONE TABLET ONCE DAILY AT BEDTIME ranitidine (ZANTAC) 150 mg tablet Take 1 tablet by mouth twice daily. spironolactone (ALDACTONE) 25 mg tablet Take 1 tablet by mouth once daily. traZODone (DESYREL) 50 mg tablet Take 0.5 tablets by mouth daily at bedtime. GLYCEMIC CONTROL: ? Glucometer present at visit: No ? SMBG?s: most BGs 80s-120s, denies anything below 70 ? Hypoglycemia: none Objective: VITALS: No vitals taken Last 3 Encounter BP Readings: Date: BP: 01/17/2018 110/82 01/09/2018 117/66 01/02/2018 132/70 Wt: 162.6 kg (358 lb 8 oz) BMI: 67.60 kg/(m2) LABS Lab Results Component Value Date HBA1C 5.7 01/26/2018 HBA1C 6.8 10/20/2017 HBA1C 7.8 07/20/2017 CMP: Glucose 83 01/26/2018 BUN 15 01/26/2018 Creatinine 0.60 01/26/2018 Sodium 143 01/26/2018 Potassium 4.3 01/26/2018 Chloride 99 01/26/2018 CO2 30 01/26/2018 Protein, Total 7.3 07/20/2017 Albumin 4.3 07/20/2017 Calcium 10.2 01/26/2018 Alkaline Phosphatase 173 07/20/2017 Bilirubin, Total 0.4 07/20/2017 AST 17 07/20/2017 ALT 15 07/20/2017 Estimated Creatinine Clearance: 151.3 mL/min (based on SCr of 0.6 mg/dL). Last Lipid Panel Lab Results Component Value Date CHOL 174 07/20/2017 Lab Results Component Value Date HDL 42 07/20/2017 Lab Results Component Value Date LDL 92 07/20/2017 Lab Results Component Value Date TG 199 07/20/2017 10-year ASCVD risk: 6% Albumin/Creat Ratio (mg/g) Date Value 01/26/2018 Not calculated PHARMACOTHERAPY ASSESSMENT/PLAN: 1. Type 2 diabetes mellitus without complication, unspecified whether group home insulin use (HCC) - ICD9: 250.00, ICD10: E11.9 A1c goal <7%; controlled (last A1c 5.7%) on current regimen and tolerating well; patient has been making big dietary changes to prepare for bariatric surgery - surgery still not scheduled yet; patient no longer experiencing hypoglycemia now that she is taking a set dose of insulin; reports SMBGs all appear within goal range; patient interested in reducing pill burden - will d/c linagliptin today since it has minimal [id number] and is costly; advised patient to continue same insulin dose for now to see how BGs respond to discontinuing linagliptin, then advised patient to self-titrate insulin as needed; will f/u with patient over the phone in 1.5 months - DISCONTINUE linagliptin 5mg daily - CONTINUE insulin glargine 10 units daily - my increase dose by 1 unit every 3 days if average FBG >130; may decrease dose by 1-2 units if FBGs frequently <70 mg/dL Patient see PCP through open access - plans to make appt in a couple months. Patient to have telephonic f/u appt with PharmD on 04/04. Patient verbalized understanding of instructions. Viviana Pope PharmD, [facility] Primary Care Clinical Pharmacist [facility] CNOV Observed: 02/21/2018 Status: COMPLETED Source: [place] 2:30 PM [facility] REPOSITORY Office Visit (PHMEWO) KATHLEEN KHAN V ([id number]) 1960 F Date Time Provider Department 02/21/18 2:30 PM LINDSEY (PHARMACIST)VIVIANA During your visit today, we recorded the following information about you: RADHAMES ROCK 02/21/2018 4:34 PM Signed TELEPHONIC ENCOUNTER Patient consents to pharmacy collaborative practice agreement. REASON FOR CONSULT: DM? GOALS: A1c <?7% CONSULTING PROVIDER: Dr. Herbert?? Date of Consult: 06/2017 ? Kathleen Khan is a 57 year old female was last seen by PCP, Dr. Vincent Herbert MD on 12/17/17 - no med changes made. Also saw Micah Abbasi Pa-C, on 01/17 for suture removal. Had appt with general surgery on 01/30 to prepare for bariatric surgery. Subjective: Patient is presenting today for f/u pharmacotherapy management appointment for diabetes. Patient is preparing for bariatric surgery. At last PharmD visit on 02/06, patient was found to be occasionally doubling her dose of insulin based on her BG readings - PharmD counseled her to maintain consistent dosing and reduced dose to 10 units nightly. INTERIM HISTORY: Reports diabetes is going well Reports BG ranging from 80-120s Claims that taking a consistent dose of insulin is helpful Had 1 day when BG was 79 between breakfast and lunch, but nothing below that Patient prepping for bariatric surgery - still not scheduled yet Thinks surgery will be in April Past DM medications: Metformin IR and ER - GI intolerance (had been on it for years and tolerated it well but then it suddenly it started causing diarrhea; has tried getting back on metformin about 3 times since then) Glimepiride 2mg daily (self-stopped) ? Current DM Medications: Insulin glargine (Basaglar) 10?units QHS Linagliptin 5mg QAM ? Current HTN Medications: Furosemide 20mg once daily Spironolactone 25mg once daily ? Preventative Medications: ? On FAMILIA/ARB: No ? On Statin: Yes ? On ASA: Yes ROS: ? Patient denies CP, SOB, ARAIZA, blurred vision, dizziness or lightheadedness ? Patient denies symptoms of hypoglycemia (sweating, anxiety, palpitations, hunger, and tremor) ? Patient denies symptoms of hyperglycemia (polyuria, polydipsia, polyphagia) ? Patient denies potential medication adverse effects DIET/EXERCISE/SOCIAL Hx: ? No changes; still maintaining 1200 calorie diet to prep for bariatric surgery MEDICATIONS: ? Pill bottles are not present. ? Adherence: denies missed doses. ? Pharmacy: [facility]? Rx coverage: [employer] ? Affordability: no isues ? Diabetes supplies: [facility] brand ? Organization System: none ACTIVE PROBLEM LIST Anxiety State Essential Hypertension, Benign ABNL GLANDULAR PAP SMEAR CERVIX HYPERPROLACTINEMIA Irregular Menstrual Cycle Esophageal Reflux Diaphragmatic Hernia Without Mention of Obstruction Or Gangrene Morbid Obesity (Hcc) Obstructive Sleep Apnea Svt (Supraventricular Tachycardia) ([facility]) Congestive Heart Failure ([facility]) Spondylolisthesis Lumbar Facet Arthropathy Ddd (Degenerative Disc Disease), Lumbar Ddd (Degenerative Disc Disease), Cervical Dm (Diabetes Mellitus) ([facility]) Pmb (Postmenopausal Bleeding) Dysthymia Major depressive disorder, recurrent episode, moderate ([facility]) Pain Disorder With Psychological Factors Diffuse Myofascial Pain Syndrome Bilateral Primary Osteoarthritis of Knee Liver Disease Umbilical Hernia Without Obstruction and Without Gangrene PAST MEDICAL HISTORY Diagnosis Date - Abnormal glandular Papanicolaou smear of cervix 05/30/05 ABNL GLANDULAR PAP SMEAR CERVIX - Acute gastritis without mention of hemorrhage - Anxiety state, unspecified - Arrhythmia - Chronic cholecystitis - Chronic obstructive pulmonary disease (COPD) ([facility]) - Congestive heart failure ([facility]) 10/03/2011 - Diabetes ([facility]) - diabetes II 2010 - Diaphragmatic hernia without mention of obstruction or gangrene - Dysthymic disorder Depression (non-psychotic) - Esophageal reflux - Essential hypertension, benign - Generalized OA - Localized osteoarthrosis not specified whether primary or secondary, lower leg - Major depressive disorder, recurrent episode - Mucous polyp of cervix 07/19/05 - Other and unspecified anterior pituitary hyperfunction 10/13/05 elevated prolactin level-was normal in 2011 - PMH - PAST MEDICAL HISTORY OF sleep apnea - PMH - PAST MEDICAL HISTORY OF sleep apnea - SVT (supraventricular tachycardia) (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 ALLERGIES Allergen Reactions - Lyrica [Pregabalin] Anaphylaxis Not sure if accurate. Can take gabapentin. Patient is unsure of reaction. - Accupril [Quinapril* Intolerance dizziness - Amlodipine Swelling Leg edema - Atenolol Swelling - Atorvastatin Intolerance Muscle cramps and weakness - Effexor [Venlafaxin* swelling high blood pressure - Januvia [Sitaglipti* GI Upset, Other: See Comments Patient states she couldn't eat - Metoprolol Swelling - Mobic [Meloxicam] GI Upset - Prozac [Fluoxetine * Intolerance tremor - Risperidone Mental Status Change - Seroquel [Quetiapin* hypertension,swelling - Vancomycin Itching, Other: See Comments red all over - Vioxx [Rofecoxib] GI Upset - Wellbutrin [Bupropi* Intolerance nightmares Medication List Medication Directions Comments Action/Plan ARIPiprazole (ABILIFY) 10 mg tablet Take 1 tablet by mouth once daily. aspirin, enteric coated (ECOTRIN LOW STRENGTH) 81 mg EC tablet Take 1 tablet by mouth once daily. baclofen (LIORESAL) 10 mg tablet take 1 tablet by mouth twice a day blood sugar diagnostic (BLOOD GLUCOSE TEST) test strip Test blood sugars up to 4 times daily as directed. Dx: Type 2 DM - Controlled E11.9 Insulin: No Blood-Glucose Meter monitoring kit Glucose Meter of Choice - Kit - Dx: Type 2 DM - Controlled E11.9 Use twice daily as directed cholecalciferol, Vitamin D3, (VITAMIN D3) 50,000 unit cap capsule Take 1 capsule by mouth once each week. cholecalciferol, vitamin D3, 50,000 unit tab Take 1 tablet by mouth once each week for 8 doses. DULoxetine (CYMBALTA) 60 mg capsule Take 1 capsule by mouth once daily. furosemide (LASIX) 0.5 mg/mL syrg DAILY furosemide (LASIX) 20 mg tablet Take 1 tablet by mouth once daily. gabapentin (NEURONTIN) 300 mg capsule Take 1 capsule by mouth twice daily for 90 days. HYDROcodone-acetaminophen (NORCO) 5-325 mg per tablet TAKE ONE TABLET TWICE DAILY insulin glargine (BASAGLAR KWIKPEN U-100 INSULIN) 100 unit/mL (3 mL) inpn Inject 10 Units subcutaneously daily at bedtime. Insulin Hamlin, Disposable, (BD ULTRA-FINE MADI PEN NEEDLE) 32 gauge x 32 ndle Use one needle for each dose. 1/day. lancets (TRUEPLUS LANCETS) 30 gauge misc Test twice daily Dx: 250.02 linagliptin (TRADJENTA) 5 mg tab Take 1 tablet by mouth once daily. nabumetone (RELAFEN) 500 mg tablet Take 1 tablet by mouth once daily. TAKE WITH FOOD nitroglycerin sublingual (NITROQUICK) 0.4 mg SL tablet Dissolve 1 tablet under the tongue as needed. FOR CHEST PAIN. IF NO RELIEF CALL 911 nystatin (MYCOSTATIN) cream Apply 1 application to affected area twice daily. polyethylene glycol 3350 (MIRALAX, GLYCOLAX) 17 gram/dose powder Take 17 g by mouth once daily. potassium chloride ER (K-DUR, KLOR-CON) 10 mEq tablet Take 1 tablet by mouth once daily. primidone (MYSOLINE) 50 mg tablet TAKE ONE TABLET ONCE DAILY AT BEDTIME ranitidine (ZANTAC) 150 mg tablet Take 1 tablet by mouth twice daily. spironolactone (ALDACTONE) 25 mg tablet Take 1 tablet by mouth once daily. traZODone (DESYREL) 50 mg tablet Take 0.5 tablets by mouth daily at bedtime. GLYCEMIC CONTROL: ? Glucometer present at visit: No ? SMBG?s: most BGs 80s-120s, denies anything below 70 ? Hypoglycemia: none Objective: VITALS: No vitals taken Last 3 Encounter BP Readings: Date: BP: 01/17/2018 110/82 01/09/2018 117/66 01/02/2018 132/70 Wt: 162.6 kg (358 lb 8 oz) BMI: 67.60 kg/(m2) LABS Lab Results Component Value Date HBA1C 5.7 01/26/2018 HBA1C 6.8 10/20/2017 HBA1C 7.8 07/20/2017 CMP: Glucose 83 01/26/2018 BUN 15 01/26/2018 Creatinine 0.60 01/26/2018 Sodium 143 01/26/2018 Potassium 4.3 01/26/2018 Chloride 99 01/26/2018 CO2 30 01/26/2018 Protein, Total 7.3 07/20/2017 Albumin 4.3 07/20/2017 Calcium 10.2 01/26/2018 Alkaline Phosphatase 173 07/20/2017 Bilirubin, Total 0.4 07/20/2017 AST 17 07/20/2017 ALT 15 07/20/2017 Estimated Creatinine Clearance: 151.3 mL/min (based on SCr of 0.6 mg/dL). Last Lipid Panel Lab Results Component Value Date CHOL 174 07/20/2017 Lab Results Component Value Date HDL 42 07/20/2017 Lab Results Component Value Date LDL 92 07/20/2017 Lab Results Component Value Date TG 199 07/20/2017 10-year ASCVD risk: 6% Albumin/Creat Ratio (mg/g) Date Value 01/26/2018 Not calculated PHARMACOTHERAPY ASSESSMENT/PLAN: 1. Type 2 diabetes mellitus without complication, unspecified whether group home insulin use (HCC) - ICD9: 250.00, ICD10: E11.9 A1c goal <7%; controlled (last A1c 5.7%) on current regimen and tolerating well; patient has been making big dietary changes to prepare for bariatric surgery - surgery still not scheduled yet; patient no longer experiencing hypoglycemia now that she is taking a set dose of insulin; reports SMBGs all appear within goal range; patient interested in reducing pill burden - will d/c linagliptin today since it has minimal [id number] and is costly; advised patient to continue same insulin dose for now to see how BGs respond to discontinuing linagliptin, then advised patient to self-titrate insulin as needed; will f/u with patient over the phone in 1.5 months - DISCONTINUE linagliptin 5mg daily - CONTINUE insulin glargine 10 units daily - my increase dose by 1 unit every 3 days if average FBG >130; may decrease dose by 1-2 units if FBGs frequently <70 mg/dL Patient see PCP through open access - plans to make appt in a couple months. Patient to have telephonic f/u appt with PharmD on 04/04. Patient verbalized understanding of instructions. Viviana Pope, YudiD, [facility] Primary Care Clinical Pharmacist [facility] Referring Provider: VINCENT HERBERT [[id number]] Allergies As of Date: 02/21/2018 Noted Allergy Reaction LYRICA (PREGABALIN) 08/05/2012 10 - Anaphylaxis Comments: Not sure if accurate. Can take gabapentin. Patient is unsure of reaction. ACCUPRIL (QUINAPRIL HCL) 08/12/2005 5 - Intolerance Comments: dizziness AMLODIPINE 04/24/2008 7 - Swelling Comments: Leg edema ATENOLOL 09/29/2010 7 - Swelling ATORVASTATIN 11/01/2017 5 - Intolerance Comments: Muscle cramps and weakness EFFEXOR (VENLAFAXINE HCL) 09/22/2005 Comments: swelling high blood pressure JANUVIA (SITAGLIPTIN) 09/21/2011 8 - GI Upset 14 - Other: See Comments Comments: Patient states she couldn't eat METOPROLOL 09/21/2009 7 - Swelling MOBIC (MELOXICAM) 08/12/2005 8 - GI Upset PROZAC (FLUOXETINE HCL) 08/12/2005 5 - Intolerance Comments: tremor RISPERIDONE 12/22/2009 1 - Mental Status Change SEROQUEL (QUETIAPINE FUMARATE) 10/05/2006 Comments: hypertension,swelling VANCOMYCIN 08/10/2017 9 - Itching 14 - Other: See Comments Comments: red all over VIOXX (ROFECOXIB) 08/12/2005 8 - GI Upset WELLBUTRIN (BUPROPION HCL) 08/12/2005 5 - Intolerance Comments: nightmares Date Reviewed: 01/17/2018 Reviewed by: Kate Brunner LPN - Fully Assessed Reason for Visit: Allied Health Visit [5] Cmt: DM f/u Primary Visit Diagnosis:Type 2 diabetes mellitus without complication, unspecified whether computer terminal operator insulin use (HCC) [E11.9] Order(s):insulin glargine (BASAGLAR KWIKPEN U-100 INSULIN) 100 unit/mL (3 mL) inpnInject 10 Units subcutaneously daily at bedtime. May increase dose by 1 unit every 3 days if average FBG >130Disp: Rfl: 0 Prescriptions as of 02/21/2018 Sig: INSULIN GLARGINE (U-100) 100 * Inject 10 Units subcutaneousl* GABAPENTIN 300 MG CAPSULE Take 1 capsule by mouth twice* NABUMETONE 500 MG TABLET Take 1 tablet by mouth once d* CHOLECALCIFEROL (VITAMIN D3) * Take 1 capsule by mouth once * FUROSEMIDE 0.5 MG/ML PEDIATRI* DAILY BACLOFEN 10 MG TABLET take 1 tablet by mouth twice * BLOOD SUGAR DIAGNOSTIC STRIPS Test blood sugars up to 4 tiara* CHOLECALCIFEROL (VITAMIN D3) * Take 1 tablet by mouth once e* POTASSIUM CHLORIDE ER 10 MEQ * Take 1 tablet by mouth once d* POLYETHYLENE GLYCOL 3350 17 G* Take 17 g by mouth once daily. BLOOD-GLUCOSE METER KIT Glucose Meter of Choice - Kit* NYSTATIN 100,000 UNIT/GRAM TO* Apply 1 application to affect* SPIRONOLACTONE 25 MG TABLET Take 1 tablet by mouth once d* RANITIDINE 150 MG TABLET Take 1 tablet by mouth twice * FUROSEMIDE 20 MG TABLET Take 1 tablet by mouth once d* DULOXETINE 60 MG CAPSULE,JODI* Take 1 capsule by mouth once * PRIMIDONE 50 MG TABLET TAKE ONE TABLET ONCE DAILY AT* PEN NEEDLE, DIABETIC 32 GAUGE* Use one needle for each dose.* HYDROCODONE 5 MG-ACETAMINOPHE* TAKE ONE TABLET TWICE DAILY LANCETS 30 GAUGE Test twice daily Dx: 250.02 TRAZODONE 50 MG TABLET Take 0.5 tablets by mouth padmini* ARIPIPRAZOLE 10 MG TABLET Take 1 tablet by mouth once d* NITROGLYCERIN 0.4 MG SUBLINGU* Dissolve 1 tablet under the t* ASPIRIN 81 MG TABLET,DELAYED * Take 1 tablet by mouth once d* Problem List As Of Date 02/21/2018 Noted Resolved Major depressive disorder, recurrent episode, u*INVALID FOR*11/24/2014 More... Anxiety state [F41.1] INVALID FOR* BENIGN HYPERTENSION [I10] INVALID FOR* OSTEOARTHROS NOS-UNSPEC [M19.90] INVALID FOR*02/07/2007 ABNL GLANDULAR PAP SMEAR CERVIX [R87.619] INVALID FOR* HYPERPROLACTINEMIA [E22.9] INVALID FOR* IRREGULAR MENSTRUATION [N92.6] INVALID FOR* ESOPHAGEAL REFLUX [K21.9] INVALID FOR* ACUTE GASTRITIS W/O HEMORRHAGE [K29.00] INVALID FOR*02/07/2007 DIAPHRAGMATIC HERNIA [K44.9] INVALID FOR* Unspecified gastritis and gastroduodenitis with*INVALID FOR*07/24/2016 Localized osteoarthrosis not specified whether *INVALID FOR*07/24/2016 More... Pain in joint, site unspecified [M25.50] INVALID FOR*07/24/2016 Routine general medical examination at a health*INVALID FOR*11/29/2011 Class: Chronic More... Routine gynecological examination [Z01.419] INVALID FOR*11/29/2011 Class: Chronic More... More... Morbid obesity [E66.01] INVALID FOR* Hyperprolactinemia [E22.1] INVALID FOR*01/30/2012 Obstructive sleep apnea [G47.33] INVALID FOR* More... Medication side effects [T88.7XXA] INVALID FOR*08/10/2017 SVT (supraventricular tachycardia) [I47.1] Type II or unspecified type diabetes mellitus w*INVALID FOR*04/10/2012 More... Congestive heart failure [I50.9] INVALID FOR* Spondylolisthesis [M43.10] INVALID FOR* Lumbar facet arthropathy [M47.816] INVALID FOR* DDD (degenerative disc disease), lumbar [M51.36]INVALID FOR* Diabetes mellitus [E11.9] INVALID FOR*11/24/2014 DDD (degenerative disc disease), cervical [M50.*INVALID FOR* DM (diabetes mellitus) (HCC) [E11.9] INVALID FOR* PMB (postmenopausal bleeding) [N95.0] INVALID FOR* Dysthymia [F34.1] INVALID FOR* Major depressive disorder, recurrent episode, m*INVALID FOR* More... Pain disorder with psychological factors [F45.4*INVALID FOR* Diffuse myofascial pain syndrome [M79.18] INVALID FOR* Bilateral primary osteoarthritis of knee [M17.0]INVALID FOR* Obesity, Class III, BMI >= 40 [E66.01] INVALID FOR*10/20/2017 Liver disease [K76.9] INVALID FOR* More... Umbilical hernia without obstruction and withou*INVALID FOR* More... Prescriptions ordered this encounter Disp Refills Start End INSULIN GLARGINE (U-100) 100 UNIT/ML* 0 02/21/2018 08/20/2018 Class: Med Update Route: SUBCUTANEOUS Sig: Inject 10 Units subcutaneously daily at bedtime. May increase dose by 1 unit every 3 days if average FBG >130 Medications Discontinued During This Encounter linagliptin (TRADJENTA) 5 mg tab 90 t* 3 08/10/2017 02/21/2018 Route: ORAL Sig: Take 1 tablet by mouth once daily. Disc: Course of therapy completed insulin glargine (BASAGLAR KWIKPEN U* 0 02/06/2018 02/21/2018 Class: Med Update Route: SUBCUTANEOUS Sig: Inject 10 Units subcutaneously daily at bedtime. Disc: Reason for discontinue is not on file. Encounter Status:Closed by LINDSEY (PHARMACIST)VIVIANA on 02/21/18 PROGRESS Observed: 02/18/2018 Status: COMPLETED Source: [place] 12:21 PM [facility] REPOSITORY O ID: [id number] Author: Sherry Diaz Service: (none) Author Type: Psychologist Type: Progress Notes Filed: 02/18/2018 12:49 PM Note Text: [facility] Receipt of Outside Records Patient: Kathleen Khan Date: 02/18/2018 Received records from patient's former psychiatrist, Rena De León MD of [facility] (Address: [address] [place] [address], [id number]; : ). Records indicate that patient's diagnostic assessment was completed on 03/17/2015. Last seen on 07/12/2017. Provider left agency on 09/21/2017. The current treatment plan includes psychotropic medication management. Patient's current diagnoses include Major Depressive Disorder, Recurrent, Severe without psychotic features, Insomnia Current medications include trazodone (50mg), Cymbalta (60mg), Abilify (10mg) Provider stated that there is no known active or historical substance abuse or dependence. Provider has no knowledge of any active psychiatric hospitalizations, suicidal ideation/attempts, or chemical dependency treatment in the past year for this patient. Provider noted patient's inpatient psychiatric hospitalization in 2012. Provider reports that patient is adherent to treatment recommendations. These records have been sent to scanning. Plan: *Documentation from current psychiatrist- establish relationship with new psychiatrist *Establish relationship with a psychologist and provide documentation of this to [facility] psychology ?(To schedule with [facility] Department of Psychiatry and Psychology, call [phone]) *[facility] Start Group attendance or equivalent individual treatment and [facility] psychology follow-up appointment after completion of group (To schedule with [facility] Binge eating group call [phone]) Sherry Diaz, Ph.D., Licensed Esthetician Damaso Muniz, Ph.D., Psychology PROGRESS Observed: 02/08/2018 Status: COMPLETED Source: [place] 12:44 PM [facility] [place] REPOSITORY [facility] ID: [id number] Author: Sherry Diaz Service: (none) Author Type: Psychologist Type: Progress Notes Filed: 02/18/2018 3:38 PM Note Text: [facility]ICAL TEST REPORT BILLING CODE: Flavio RE: Kathleengabriel Khan [facility]#: [id number] TEST ADMINISTERED: [place] Multiphasic Personality Inventory-2 Restructured Form (MMPI-2-RF) Date Administered: 01/30/2018 Date Reviewed: 01/30/2018 Time Reviewed: 35 minutes CPT#: 81492 (1 unit) The patient completed the MMPI-2-RF in the [facility] and was proctored by trained personnel. The mortgage loan underwriter was available for help with the testing and completed the subsequent interpretation and summary. Test completion took the patient approximately 45 minutes and the psychologist interpretation and report writing took an additional 35 minutes. The patient signed an informed consent for psychological testing that explained the purposes of testing, information about testing and confidentiality, and information about the supervisory nature of the relationship and oversight by a licensed psychologist. BACKGROUND INFORMATION: Ms. Khan is a 58 year old female seeking bariatric surgery referred by Surgery. She completed the MMPI-2-RF and BES as part of a comprehensive evaluation. TEST RESULTS: Validity and Interpretation She verbalized an understanding of the purposes of the assessment. Ms. Khan responded to MMPI-2-RF test items with possible over- reporting of cognitive symptoms. While genuine, substantial cognitive problems can not be ruled out entirely, over-reporting is likely whether it be due to noncredible memory complaints or substantial emotional dysfunction. In addition, patient's responses suggest possible under-reporting. Such a response style may be explained 1) as an attempt to present oneself in a favorable light or 2) by a background stressing traditional values. Any absence of elevation on the substantive scales should be interpreted with caution. Non-elevated scores can not definitively rule out problems, and elevated scores may underestimate problems that are identified. The resulting test protocol is valid but cognitive scale scores should be interpreted with caution. Overall Functioning Based on her score profile, pt?s overall functioning generally reflects significant emotional distress (DK = 65-79), no clinically significant thought dysfunction (THD < 65), and an above average level of behavioral constraint (BXD < 39). However, problems in these areas cannot be ruled out due to possible under-reporting. Patient's verbal report of functioning aligns with test results and suggest that she is currently experiencing significant emotional distress. Specific Problem and Strength Areas Specifically, the patient profile reflects a lack of positive emotional experiences, significant anhedonia, and lack of interest (RC2 >= 65). Such individuals are often pessimistic, socially introverted, and socially disengaged. They lack energy and display vegetative symptoms of depression (RC2>=65). Patient endorsed significant symptoms of depression including depressed mood, anhedonia, and feelings of worthlessness. Patient profile also reflects multiple somatic complaints that may include head pain and neurological and gastrointestinal symptoms (RC1 65-79). Individuals with a similar profile present as preoccupied with multiple somatic complaints and fatigue. Their somatic concerns often involve a psychological component, and they are also prone to developing physical symptoms in response to stress. Patient corroborated test results and reported several chronic health conditions that impact functioning. Specific areas of strength cannot be determined due to indications of possible under-reporting. The patient reports a general sense of malaise manifested in poor health and feeling tired, weak, and incapacitated (T>=80). Such individuals are preoccupied with poor health and likely to complain of sleep disturbance, fatigue, low energy, and sexual dysfunction. She acknowledged persistent fatigue and lack of energy. The patient reports vague neurological complaints (T=65-91). Patient endorsed neurological symptoms related in part to pain disorders. The patient reports a diffuse pattern of cognitive difficulties (T=65-80). Such individuals often complain of memory and concentration difficulties and have a low tolerance for frustration. Patient denied significant cognitive difficulties. The patient reports lacking confidence and feeling useless (T>=70). Such individuals often feel inferior and insecure. They are also prone to rumination and self-disparaging thoughts. Patient acknowledged feelings of worthlessness. The patient reports feeling anxious (T65-99). Such individuals may experience intrusive ideation, sleep difficulties including nightmares, and post-traumatic distress. She reported a history of anxiety, panic attacks, and insomnia. She stated that symptoms have improved since initiating psychotropic medications. Critical items endorsed on the scale include: I have nightmares every few nights. I feel anxiety about something or someone almost all the time. The patient reports multiple fears that significantly restrict normal activity in and outside the home (T65-89). Patient acknowledged multiple fears and avoidance behaviors. There are no indications of historical or active suicidal ideation and/or attempts in this protocol. Patient disclosed an inpatient psychiatric hospitalization between 05/29/2012 and 06/02/2012 related to suicidal ideation with no plan or intent. She denied current thoughts of or suicidal ideation, intent, or plan. There are no indications of externalizing dysfunction in this protocol. However, due to indications of possible under-reporting, these problems cannot be ruled out. The patient does not report significant past or current substance abuse. Interpersonal Functioning The patient reports being unassertive and submissive. Such individuals don't like being in charge, fail to stand up for themselves, and are often ready to give in to others (T>=80). Such individuals tend to be overcontrolled, passive and submissive in interpersonal relationships. She acknowledged interpersonal passivity. The patient reports not enjoying social events and avoiding social situations (T=65-79). Similar individuals are introverted and emotionally restricted. They have difficulty forming close relationships. Patient endorsed gaining limited pleasure from social events. She denied close friendships. The patient reports being shy, easily embarrassed, and uncomfortable around others (T>=65). She acknowledged uncomfortableness in social situations. Interests Patient reports an average interest in activities or occupations of an aesthetic or literary nature (e.g., writing, music, theater). Patient reports little to no interest in activities or occupations of a mechanical or physical nature (e.g., fixing and building things, the outdoors, sports) (T<39). Personality The patient reports a lack of positive emotional experiences and avoidance of social situations. Such individuals often complain of depression and anhedonia. They tend to be socially introverted, pessimistic, and lacking in interests. Diagnostic Considerations Ms. Bonner test results indicate the following possible diagnoses for further consideration: Anxiety related disorders including PTSD Depression-related disorder Somatoform disorder, if physical origin of somatic complaints has been ruled out Agoraphobia and specific phobias Disorders characterized by passive-submissive behavior such as dependent personality disorder Disorders associated with social avoidance such as avoidant personality disorder Social phobia Treatment Considerations Areas for Further Evaluation: Explore origin of malaise complaints, cognitive complaints (This may require a neuropsychological evaluation.) Explore the extent to which genuine physical health problems contribute to the somatic complaints Explore need for antidepressant medication should be evaluated. Explore need for inpatient treatment should be evaluated for significant depression. Psychotherapy Process Issues: Emotional difficulties may motivate pt for treatment Likely to reject psychological interpretations of somatic complaints Malaise may impede willingness or ability to engage in treatment Possible Targets for Treatment: Anhedonia Anxiety Anxiety in social situations Behavior-restricting fears Difficulties associated with social avoidance Low self-esteem and other manifestations of self-doubt Reducing passive, submissive behavior The above test results were consistent with the interview data. Patient endorsed significant emotional distress and a limited range of adaptive coping strategies. She expressed discomfort in social situations and persistent feelings of worthlessness and self-doubt. She denied cognitive complaints. DIAGNOSTIC AND TREATMENT CONSIDERATIONS: Diagnostic considerations based on assessment results and interview data include: Primary Diagnoses: Major Depressive Disorder, Recurrent, Moderate Anxiety Disorder NOS Binge Eating Disorder, Moderate, in partial remission Psychological Factors Affecting Morbid Obesity Personality Diagnoses:Deferred Global Assessment of Functionin-51 Moderate symptoms or moderate difficulty in social, occupational or school functioning. IMPRESSIONS: Based on the information gathered through the interview and testing process, the patient may be an acceptable candidate pending completion of the requirements below. PLAN: 1) REQUIREMENTS FOR COMPLETING BEHAVIORAL HEALTH EVALUATION: *Documentation from current psychiatrist *Establish relationship with a psychologist and provide documentation of this to [facility] psychology ?(To schedule with [facility] Department of Psychiatry and Psychology, call [phone]) *[facility] Start Group attendance or equivalent individual treatment and [facility] psychology follow-up appointment after completion of group (To schedule with [facility] Binge eating group call [phone] 2) The patient may benefit from the following during the surgery process: *Ongoing psychotropic medication management by Psychiatrist *Participation in a Weight Loss Surgery support group *Read Preparing for Weight Loss Surgery: Workbook (Treatments That Work) by Gee Magana, Aneudy Vargas, and Gemma Valiente ([employer], 2006) *Follow up with psychology as an inpatient if needed *Follow up with psychology at 1, 3, 6, 12 months and yearly thereafter as an outpatient *Do not use alcohol, tobacco, and street drugs for at least 6 months prior to and after surgery. ? 3) Insurance letter not completed at this time. Patient needs to complete additional preparation as outlined above. 4) Should the patient require or wish to seek additional psychological support or services, either pre- or post-operatively, I am able to provide those services. 5) The above results were discussed verbally with the patient in session in lieu of providing a written copy of the test results. The patient can request a written copy through [employer]. The above recommendations and treatment plan will be communicated back to the referring physician by way of the shared electronic medical record. This report is not intended for forensic purposes. Sherry Diaz, Ph.D., Licensed Esthetician Supervision comments: Reviewed test protocol and fully reviewed the interpretive report above. The above information has been confirmed by me. Profile was valid for interpretation with the following caveat: Possible overreporting of somatic/cognitive symptoms, and underreporting more generally. Profile was significant for elevations across several domains including but not limited to depression, somatic complaints, anxiety, and social avoidance. The test protocol was fairly consistent with the clinical interview. She seemed more forthcoming about emotional distress in testing than in the interview. I agree with the above recommendation and treatment plan. I met with this patient and agree with the above diagnosis and treatment plan. Damaso Muniz, Ph.D., Psychologist Patient Name: Kathleen Khan [facility]#: [id number] URINE DRUG SCREEN Collected: 02/07/2018 Status: F Source: [place] ([place]) 3:33 PM [facility] REPOSITORY Order Comment: List of Drugs Taken or Suspected? UNK TYPE CODE TESTS RESULT OUT OF RANGE REFERENCE UNITS LAB L505.0075 TO BE Normal CONFIRMED Result Comment: CONFIRMATORY TESTING FOR ALL POSITIVE URINE DRUG SCREEN RESULTS WILL ONLY BE SENT OUT UPON PHYSICIAN ORDER. VISTA Urine Drug Screen methods provide only preliminary analytical test results. A more specific alternate chemical method must be used in order to obtain a confirmed analytical result. Gas chromatography/mass spectrometery (GC/MS) is the preferred confirmatory method. Clinical consideration and professional judgement should be applied to any drug of abuse test result, particularly when preliminary positive results are used. URINE TCA TESTING MUST BE ORDERED SEPARATELY. USE TEST MNEMONIC: [facility] LAB L505.5005 VISTA UDS PH 7 Normal LAB L505.5015 <1000 ng/mL AMPHETAMINES Normal NEGATIVE LAB L505.5025 < 200 High ng/mL BARBITIURATES POSITIVE LAB L505.5035 < 200 ng/mL BENZODIAZIPINE Normal NEGATIVE LAB L505.5045 < 300 ng/mL COCAINE Normal NEGATIVE LAB L505.5055 < 500 ng/mL ECSTACY Normal NEGATIVE LAB L505.5065 < 300 ng/mL METHADONE Normal NEGATIVE LAB L505.5075 < 300 High ng/mL OPIATES POSITIVE LAB L505.5085 < 25 ng/mL PCP Normal NEGATIVE LAB L505.5095 < 50 ng/mL THC Normal NEGATIVE Performed By: #### L505.5000 #### [facility] [place], [address] MISCELLANEOUS LAB Collected: 02/07/2018 Status: F Source: [place] PROCEDURE 3:33 PM [facility] REPOSITORY Order Comment: Test(s) Ordered: URINE TOXICOLOGY [id number] RUN LOWEST TEST TYPE CODE TESTS RESULT OUT OF RANGE REFERENCE UNITS LAB L801.1541 Normal [facility] TEST Result Comment: [id number] 6+OXYCODONE-BUND (ng/mL) DRUG RESULT SCREEN CUTOFF ____ Amphetamines,Urine Negative ng/mL 1000 Amphetamine test includes Amphetamine and Methamphetamine. Barbiturates Positive ng/mL 200 Amobarbital Negative 200 Secobarbital Negative 200 Butalbital Negative 200 Pentobarbital Negative 200 Phenobarbital Positive Phenobarbital GC/MS Conf 346 ng/mL 200 Benzodiazepines Negative ng/mL 200 Cannabinoid Negative ng/mL 20 Cocaine (Metab) Negative ng/mL 300 Opiates Positive ng/mL 300 Opiates test includes Codeine, Morphine, Hydromorphone, Hydrocodone. Please Note: Confirmation performed by Mass Spectrometry Codeine Negative 300 Morphine Negative 300 Hydromorphone Negative 300 Hydrocodone Positive Hydrocodone Confirm 369 ng/mL 300 Oxycodone/Oxymorphone,Urine Negative ng/mL 300 Test includes Oxydodone and Oxymorphone. TESTING PERFORMED AT [facility]. ORIGINAL REPORT ON FILE IN LAB CONTAINS ADDITIONAL TEST SITE INFORMATION. Performed By: #### L801.1541 #### [facility] [place], [address] PROGRESS Observed: 02/06/2018 Status: COMPLETED Source: [place] 10:00 AM [facility] REPOSITORY [facility] ID: [id number] Author: Viviana Pope (Pharmacist) Service: (none) Author Type: Pharmacist Type: Progress Notes Filed: 02/06/2018 1:03 PM Note Text: TELEPHONIC ENCOUNTER Patient consents to pharmacy collaborative practice agreement. REASON FOR CONSULT: DM? GOALS: A1c <?7% CONSULTING PROVIDER: Dr. Herbert?? Date of Consult: 06/2017 Kathleen Khan is a 57 year old female was last seen by PCP, Dr. Vincent Herbert MD on 12/17/17 - no med changes made. Also saw Micah Abbasi Pa-C, on 01/17 for suture removal. Had appt with general surgery on 01/30 to prepare for bariatric surgery. Subjective: Patient is presenting today for f/u pharmacotherapy management appointment for diabetes. At last PharmD visit on 12/26, no med changes were made. INTERIM HISTORY: Reports being more comfortable with injecting insulin at night Patient is self-adjusting insulin still - if HS readings 120 mg/dL or higher, will inject double the dose Bariatric surgery not schedule yet - she needs to see transaction advisory services manager in February, also needs to have some psych appts in March Past DM medications: Metformin IR and ER - GI intolerance (had been on it for years and tolerated it well but then it suddenly it started causing diarrhea; has tried getting back on metformin about 3 times since then) Glimepiride 2mg daily (self-stopped) ? Current DM Medications: Insulin glargine (Basaglar)?30?units QHS (taking 10-20 units nightly depending on HS blood sugar) Linagliptin 5mg QAM ? Current HTN Medications: Furosemide 20mg once daily Spironolactone 25mg once daily ? Preventative Medications: ? On FAMILIA/ARB: No ? On Statin: Yes ? On ASA: Yes ROS: ? Patient denies CP, SOB, ARAIZA, blurred vision, dizziness or lightheadedness ? Patient denies symptoms of hypoglycemia (sweating, anxiety, palpitations, hunger, and tremor) ? Patient denies symptoms of hyperglycemia (polyuria, polydipsia, polyphagia) ? Patient denies potential medication adverse effects DIET/EXERCISE/SOCIAL Hx: ? Still further limiting diet to prepare for bariatric surgery ? Eating fewer calories and carbs, losing some weight MEDICATIONS: ? Pill bottles are not present. ? Adherence: denies missed doses. ? Pharmacy: [facility]? Rx coverage: [employer] ? Affordability: no isues ? Diabetes supplies: [facility] brand ? Organization System: none ACTIVE PROBLEM LIST Anxiety State Essential Hypertension, Benign ABNL GLANDULAR PAP SMEAR CERVIX HYPERPROLACTINEMIA Irregular Menstrual Cycle Esophageal Reflux Diaphragmatic Hernia Without Mention of Obstruction Or Gangrene Morbid Obesity (Hcc) Obstructive Sleep Apnea Svt (Supraventricular Tachycardia) (Hcc) Congestive Heart Failure (Hcc) Spondylolisthesis Lumbar Facet Arthropathy Ddd (Degenerative Disc Disease), Lumbar Ddd (Degenerative Disc Disease), Cervical Dm (Diabetes Mellitus) (Hcc) Pmb (Postmenopausal Bleeding) Dysthymia Major depressive disorder, recurrent episode, moderate ([facility]) Pain Disorder With Psychological Factors Diffuse Myofascial Pain Syndrome Bilateral Primary Osteoarthritis of Knee Liver Disease Umbilical Hernia Without Obstruction and Without Gangrene PAST MEDICAL HISTORY Diagnosis Date - Abnormal glandular Papanicolaou smear of cervix 05/30/05 ABNL GLANDULAR PAP SMEAR CERVIX - Acute gastritis without mention of hemorrhage - Anxiety state, unspecified - Arrhythmia - Chronic cholecystitis - Chronic obstructive pulmonary disease (COPD) ([facility]) - Congestive heart failure ([facility]) 10/03/2011 - Diabetes ([facility]) - diabetes II 2010 - Diaphragmatic hernia without mention of obstruction or gangrene - Dysthymic disorder Depression (non-psychotic) - Esophageal reflux - Essential hypertension, benign - Generalized OA - Localized osteoarthrosis not specified whether primary or secondary, lower leg - Major depressive disorder, recurrent episode - Mucous polyp of cervix 07/19/05 - Other and unspecified anterior pituitary hyperfunction 10/13/05 elevated prolactin level-was normal in 2011 - PMH - PAST MEDICAL HISTORY OF sleep apnea - PMH - PAST MEDICAL HISTORY OF sleep apnea - SVT (supraventricular tachycardia) (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 ALLERGIES Allergen Reactions - Lyrica [Pregabalin] Anaphylaxis Not sure if accurate. Can take gabapentin. Patient is unsure of reaction. - Accupril [Quinapril* Intolerance dizziness - Amlodipine Swelling Leg edema - Atenolol Swelling - Atorvastatin Intolerance Muscle cramps and weakness - Effexor [Venlafaxin* swelling high blood pressure - Januvia [Sitaglipti* GI Upset, Other: See Comments Patient states she couldn't eat - Metoprolol Swelling - Mobic [Meloxicam] GI Upset - Prozac [Fluoxetine * Intolerance tremor - Risperidone Mental Status Change - Seroquel [Quetiapin* hypertension,swelling - Vancomycin Itching, Other: See Comments red all over - Vioxx [Rofecoxib] GI Upset - Wellbutrin [Bupropi* Intolerance nightmares Medication List Medication Directions Comments Action/Plan ARIPiprazole (ABILIFY) 10 mg tablet Take 1 tablet by mouth once daily. aspirin, enteric coated (ECOTRIN LOW STRENGTH) 81 mg EC tablet Take 1 tablet by mouth once daily. baclofen (LIORESAL) 10 mg tablet take 1 tablet by mouth twice a day blood sugar diagnostic (BLOOD GLUCOSE TEST) test strip Test blood sugars up to 4 times daily as directed. Dx: Type 2 DM - Controlled E11.9 Insulin: No Blood-Glucose Meter monitoring kit Glucose Meter of Choice - Kit - Dx: Type 2 DM - Controlled E11.9 Use twice daily as directed cholecalciferol, Vitamin D3, (VITAMIN D3) 50,000 unit cap capsule Take 1 capsule by mouth once each week. cholecalciferol, vitamin D3, 50,000 unit tab Take 1 tablet by mouth once each week for 8 doses. DULoxetine (CYMBALTA) 60 mg capsule Take 1 capsule by mouth once daily. furosemide (LASIX) 0.5 mg/mL syrg DAILY furosemide (LASIX) 20 mg tablet Take 1 tablet by mouth once daily. gabapentin (NEURONTIN) 300 mg capsule Take 1 capsule by mouth twice daily for 90 days. HYDROcodone-acetaminophen (NORCO) 5-325 mg per tablet TAKE ONE TABLET TWICE DAILY insulin glargine (BASAGLAR KWIKPEN U-100 INSULIN) 100 unit/mL (3 mL) inpn Inject 30 Units subcutaneously daily at bedtime. Insulin Hamlin, Disposable, (BD ULTRA-FINE MADI PEN NEEDLE) 32 gauge x 532 ndle Use one needle for each dose. 1/day. lancets (TRUEPLUS LANCETS) 30 gauge misc Test twice daily Dx: 250.02 linagliptin (TRADJENTA) 5 mg tab Take 1 tablet by mouth once daily. nabumetone (RELAFEN) 500 mg tablet Take 1 tablet by mouth once daily. TAKE WITH FOOD nitroglycerin sublingual (NITROQUICK) 0.4 mg SL tablet Dissolve 1 tablet under the tongue as needed. FOR CHEST PAIN. IF NO RELIEF CALL 911 nystatin (MYCOSTATIN) cream Apply 1 application to affected area twice daily. polyethylene glycol 3350 (MIRALAX, GLYCOLAX) 17 gram/dose powder Take 17 g by mouth once daily. potassium chloride ER (K-DUR, KLOR-CON) 10 mEq tablet Take 1 tablet by mouth once daily. primidone (MYSOLINE) 50 mg tablet TAKE ONE TABLET ONCE DAILY AT BEDTIME ranitidine (ZANTAC) 150 mg tablet Take 1 tablet by mouth twice daily. spironolactone (ALDACTONE) 25 mg tablet Take 1 tablet by mouth once daily. traZODone (DESYREL) 50 mg tablet Take 0.5 tablets by mouth daily at bedtime. GLYCEMIC CONTROL: ? Glucometer present at visit: No ? SMBG?s: Date Fasting AM 2 hr PP Before Lunch 2 hr PP Before Dinner 2 hr PP Bedtime 02/06 96 02/05 104 98 122 (took 20 units) 02/04 96 110 118 (took 10 units) 02/03 95 108 110 02/02 110 114 110 02/01 72 81 122 (took 20 units) 01/31 74 95 107 01/30 99 109 100 01/29 108 89 119 (took 20 units) 01/28 107 108 120 (took 20 units) 01/27 112 99 104 01/26 84 91 120 01/25 74 87 104 01/24 78 100 142 ? Hypoglycemia: feels low when BG <80 (feels dizzy and shaky) ? How corrected: glucose tabs Objective: VITALS: None taken (telephonic appt) Last 3 Encounter BP Readings: Date: BP: 01/17/2018 110/82 01/09/2018 117/66 01/02/2018 132/70 Wt: 162.6 kg (358 lb 8 oz) BMI: 67.60 kg/(m2) LABS Lab Results Component Value Date HBA1C 5.7 01/26/2018 HBA1C 6.8 10/20/2017 HBA1C 7.8 07/20/2017 CMP: Glucose 83 01/26/2018 BUN 15 01/26/2018 Creatinine 0.60 01/26/2018 Sodium 143 01/26/2018 Potassium 4.3 01/26/2018 Chloride 99 01/26/2018 CO2 30 01/26/2018 Protein, Total 7.3 07/20/2017 Albumin 4.3 07/20/2017 Calcium 10.2 01/26/2018 Alkaline Phosphatase 173 07/20/2017 Bilirubin, Total 0.4 07/20/2017 AST 17 07/20/2017 ALT 15 07/20/2017 Estimated Creatinine Clearance: 151.3 mL/min (based on SCr of 0.6 mg/dL). Last Lipid Panel Lab Results Component Value Date CHOL 174 07/20/2017 Lab Results Component Value Date HDL 42 07/20/2017 Lab Results Component Value Date LDL 92 07/20/2017 Lab Results Component Value Date TG 199 07/20/2017 10-year ASCVD risk: 6% Albumin/Creat Ratio (mg/g) Date Value 01/26/2018 Not calculated PHARMACOTHERAPY ASSESSMENT/PLAN: 1. Type 2 diabetes mellitus without complication, unspecified whether group home insulin use (HCC) - ICD9: 250.00, ICD10: E11.9 A1c goal <7%; controlled (last A1c 5.7%) on current regimen; SMBG log shows FBGs and PPGs are at goal and sometimes below goal; patient is self-adjusting insulin and taking less insulin than what was prescribed; patient self-adjusting dose based on HS readings - taking either 10 units or 20 units if BG >120; fortunately no concerns for BG <70 but patient feels low when BG <80; PharmD educated patient not to double the insulin dose based on blood sugar but requested that she maintain consistent dosing - will have patient continue taking 10 units nightly as she has been doing; patient not on metformin because she cannot tolerate it; patient has made drastic dietary changes to prepare for bariatric surgery; will not make other medication changes today; in future t/c discontinuing linagliptin since it offers minimal A1c reduction and adds to pill burden - DECREASE insulin glargine to 10 units nightly - CONTINUE linagliptin 5mg daily Patient see PCP through open access - plans to make appt in a couple months. Patient to have telephonic f/u appt with PharmD on 02/21/18. Patient verbalized understanding of instructions. Viviana Pope PharmD, [facility] Primary Care Clinical Pharmacist [place] CNOV Observed: 02/06/2018 Status: COMPLETED Source: [place] 10:00 AM [facility] REPOSITORY Office Visit (PHMEWO) KATHLEEN KHAN V ([id number]) 1960 F Date Time Provider Department 02/06/18 10:00 AM LINDSEY (PHARMACIST)VIVIANA During your visit today, we recorded the following information about you: RADHAMES ROCK 02/06/2018 1:03 PM Signed TELEPHONIC ENCOUNTER Patient consents to pharmacy collaborative practice agreement. REASON FOR CONSULT: DM? GOALS: A1c <?7% CONSULTING PROVIDER: Dr. Herbert?? Date of Consult: 06/2017 Kathleen Khan is a 57 year old female was last seen by PCP, Dr. Vincent Herbert MD on 12/17/17 - no med changes made. Also saw Micah Abbasi Pa-C, on 01/17 for suture removal. Had appt with general surgery on 01/30 to prepare for bariatric surgery. Subjective: Patient is presenting today for f/u pharmacotherapy management appointment for diabetes. At last PharmD visit on 12/26, no med changes were made. INTERIM HISTORY: Reports being more comfortable with injecting insulin at night Patient is self-adjusting insulin still - if HS readings 120 mg/dL or higher, will inject double the dose Bariatric surgery not schedule yet - she needs to see transaction advisory services manager in February, also needs to have some psych appts in March Past DM medications: Metformin IR and ER - GI intolerance (had been on it for years and tolerated it well but then it suddenly it started causing diarrhea; has tried getting back on metformin about 3 times since then) Glimepiride 2mg daily (self-stopped) ? Current DM Medications: Insulin glargine (Basaglar)?30?units QHS (taking 10-20 units nightly depending on HS blood sugar) Linagliptin 5mg QAM ? Current HTN Medications: Furosemide 20mg once daily Spironolactone 25mg once daily ? Preventative Medications: ? On FAMILIA/ARB: No ? On Statin: Yes ? On ASA: Yes ROS: ? Patient denies CP, SOB, ARAIZA, blurred vision, dizziness or lightheadedness ? Patient denies symptoms of hypoglycemia (sweating, anxiety, palpitations, hunger, and tremor) ? Patient denies symptoms of hyperglycemia (polyuria, polydipsia, polyphagia) ? Patient denies potential medication adverse effects DIET/EXERCISE/SOCIAL Hx: ? Still further limiting diet to prepare for bariatric surgery ? Eating fewer calories and carbs, losing some weight MEDICATIONS: ? Pill bottles are not present. ? Adherence: denies missed doses. ? Pharmacy: [facility]? Rx coverage: [employer] ? Affordability: no isues ? Diabetes supplies: [facility] brand ? Organization System: none ACTIVE PROBLEM LIST Anxiety State Essential Hypertension, Benign ABNL GLANDULAR PAP SMEAR CERVIX HYPERPROLACTINEMIA Irregular Menstrual Cycle Esophageal Reflux Diaphragmatic Hernia Without Mention of Obstruction Or Gangrene Morbid Obesity (Hcc) Obstructive Sleep Apnea Svt (Supraventricular Tachycardia) ([facility]) Congestive Heart Failure ([facility]) Spondylolisthesis Lumbar Facet Arthropathy Ddd (Degenerative Disc Disease), Lumbar Ddd (Degenerative Disc Disease), Cervical Dm (Diabetes Mellitus) ([facility]) Pmb (Postmenopausal Bleeding) Dysthymia Major depressive disorder, recurrent episode, moderate ([facility]) Pain Disorder With Psychological Factors Diffuse Myofascial Pain Syndrome Bilateral Primary Osteoarthritis of Knee Liver Disease Umbilical Hernia Without Obstruction and Without Gangrene PAST MEDICAL HISTORY Diagnosis Date - Abnormal glandular Papanicolaou smear of cervix 05/30/05 ABNL GLANDULAR PAP SMEAR CERVIX - Acute gastritis without mention of hemorrhage - Anxiety state, unspecified - Arrhythmia - Chronic cholecystitis - Chronic obstructive pulmonary disease (COPD) ([facility]) - Congestive heart failure ([facility]) 10/03/2011 - Diabetes ([facility]) - diabetes II 2010 - Diaphragmatic hernia without mention of obstruction or gangrene - Dysthymic disorder Depression (non-psychotic) - Esophageal reflux - Essential hypertension, benign - Generalized OA - Localized osteoarthrosis not specified whether primary or secondary, lower leg - Major depressive disorder, recurrent episode - Mucous polyp of cervix 07/19/05 - Other and unspecified anterior pituitary hyperfunction 10/13/05 elevated prolactin level-was normal in 2011 - PMH - PAST MEDICAL HISTORY OF sleep apnea - PMH - PAST MEDICAL HISTORY OF sleep apnea - SVT (supraventricular tachycardia) (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 ALLERGIES Allergen Reactions - Lyrica [Pregabalin] Anaphylaxis Not sure if accurate. Can take gabapentin. Patient is unsure of reaction. - Accupril [Quinapril* Intolerance dizziness - Amlodipine Swelling Leg edema - Atenolol Swelling - Atorvastatin Intolerance Muscle cramps and weakness - Effexor [Venlafaxin* swelling high blood pressure - Januvia [Sitaglipti* GI Upset, Other: See Comments Patient states she couldn't eat - Metoprolol Swelling - Mobic [Meloxicam] GI Upset - Prozac [Fluoxetine * Intolerance tremor - Risperidone Mental Status Change - Seroquel [Quetiapin* hypertension,swelling - Vancomycin Itching, Other: See Comments red all over - Vioxx [Rofecoxib] GI Upset - Wellbutrin [Bupropi* Intolerance nightmares Medication List Medication Directions Comments Action/Plan ARIPiprazole (ABILIFY) 10 mg tablet Take 1 tablet by mouth once daily. aspirin, enteric coated (ECOTRIN LOW STRENGTH) 81 mg EC tablet Take 1 tablet by mouth once daily. baclofen (LIORESAL) 10 mg tablet take 1 tablet by mouth twice a day blood sugar diagnostic (BLOOD GLUCOSE TEST) test strip Test blood sugars up to 4 times daily as directed. Dx: Type 2 DM - Controlled E11.9 Insulin: No Blood-Glucose Meter monitoring kit Glucose Meter of Choice - Kit - Dx: Type 2 DM - Controlled E11.9 Use twice daily as directed cholecalciferol, Vitamin D3, (VITAMIN D3) 50,000 unit cap capsule Take 1 capsule by mouth once each week. cholecalciferol, vitamin D3, 50,000 unit tab Take 1 tablet by mouth once each week for 8 doses. DULoxetine (CYMBALTA) 60 mg capsule Take 1 capsule by mouth once daily. furosemide (LASIX) 0.5 mg/mL syrg DAILY furosemide (LASIX) 20 mg tablet Take 1 tablet by mouth once daily. gabapentin (NEURONTIN) 300 mg capsule Take 1 capsule by mouth twice daily for 90 days. HYDROcodone-acetaminophen (NORCO) 5-325 mg per tablet TAKE ONE TABLET TWICE DAILY insulin glargine (BASAGLAR KWIKPEN U-100 INSULIN) 100 unit/mL (3 mL) inpn Inject 30 Units subcutaneously daily at bedtime. Insulin Hamlin, Disposable, (BD ULTRA-FINE MADI PEN NEEDLE) 32 gauge x 5/32 ndle Use one needle for each dose. 1/day. lancets (TRUEPLUS LANCETS) 30 gauge misc Test twice daily Dx: 250.02 linagliptin (TRADJENTA) 5 mg tab Take 1 tablet by mouth once daily. nabumetone (RELAFEN) 500 mg tablet Take 1 tablet by mouth once daily. TAKE WITH FOOD nitroglycerin sublingual (NITROQUICK) 0.4 mg SL tablet Dissolve 1 tablet under the tongue as needed. FOR CHEST PAIN. IF NO RELIEF CALL 911 nystatin (MYCOSTATIN) cream Apply 1 application to affected area twice daily. polyethylene glycol 3350 (MIRALAX, GLYCOLAX) 17 gram/dose powder Take 17 g by mouth once daily. potassium chloride ER (K-DUR, KLOR-CON) 10 mEq tablet Take 1 tablet by mouth once daily. primidone (MYSOLINE) 50 mg tablet TAKE ONE TABLET ONCE DAILY AT BEDTIME ranitidine (ZANTAC) 150 mg tablet Take 1 tablet by mouth twice daily. spironolactone (ALDACTONE) 25 mg tablet Take 1 tablet by mouth once daily. traZODone (DESYREL) 50 mg tablet Take 0.5 tablets by mouth daily at bedtime. GLYCEMIC CONTROL: ? Glucometer present at visit: No ? SMBG?s: Date Fasting AM 2 hr PP Before Lunch 2 hr PP Before Dinner 2 hr PP Bedtime 02/06 96 02/05 104 98 122 (took 20 units) 02/04 96 110 118 (took 10 units) 02/03 95 108 110 02/02 110 114 110 02/01 72 81 122 (took 20 units) 01/31 74 95 107 01/30 99 109 100 01/29 108 89 119 (took 20 units) 01/28 107 108 120 (took 20 units) 01/27 112 99 104 01/26 84 91 120 01/25 74 87 104 01/24 78 100 142 ? Hypoglycemia: feels low when BG <80 (feels dizzy and shaky) ? How corrected: glucose tabs Objective: VITALS: None taken (telephonic appt) Last 3 Encounter BP Readings: Date: BP: 01/17/2018 110/82 01/09/2018 117/66 01/02/2018 132/70 Wt: 162.6 kg (358 lb 8 oz) BMI: 67.60 kg/(m2) LABS Lab Results Component Value Date HBA1C 5.7 01/26/2018 HBA1C 6.8 10/20/2017 HBA1C 7.8 07/20/2017 CMP: Glucose 83 01/26/2018 BUN 15 01/26/2018 Creatinine 0.60 01/26/2018 Sodium 143 01/26/2018 Potassium 4.3 01/26/2018 Chloride 99 01/26/2018 CO2 30 01/26/2018 Protein, Total 7.3 07/20/2017 Albumin 4.3 07/20/2017 Calcium 10.2 01/26/2018 Alkaline Phosphatase 173 07/20/2017 Bilirubin, Total 0.4 07/20/2017 AST 17 07/20/2017 ALT 15 07/20/2017 Estimated Creatinine Clearance: 151.3 mL/min (based on SCr of 0.6 mg/dL). Last Lipid Panel Lab Results Component Value Date CHOL 174 07/20/2017 Lab Results Component Value Date HDL 42 07/20/2017 Lab Results Component Value Date LDL 92 07/20/2017 Lab Results Component Value Date TG 199 07/20/2017 10-year ASCVD risk: 6% Albumin/Creat Ratio (mg/g) Date Value 01/26/2018 Not calculated PHARMACOTHERAPY ASSESSMENT/PLAN: 1. Type 2 diabetes mellitus without complication, unspecified whether group home insulin use (HCC) - ICD9: 250.00, ICD10: E11.9 A1c goal <7%; controlled (last A1c 5.7%) on current regimen; SMBG log shows FBGs and PPGs are at goal and sometimes below goal; patient is self-adjusting insulin and taking less insulin than what was prescribed; patient self-adjusting dose based on HS readings - taking either 10 units or 20 units if BG >120; fortunately no concerns for BG <70 but patient feels low when BG <80; PharmD educated patient not to double the insulin dose based on blood sugar but requested that she maintain consistent dosing - will have patient continue taking 10 units nightly as she has been doing; patient not on metformin because she cannot tolerate it; patient has made drastic dietary changes to prepare for bariatric surgery; will not make other medication changes today; in future t/c discontinuing linagliptin since it offers minimal A1c reduction and adds to pill burden - DECREASE insulin glargine to 10 units nightly - CONTINUE linagliptin 5mg daily Patient see PCP through open access - plans to make appt in a couple months. Patient to have telephonic f/u appt with PharmD on 02/21/18. Patient verbalized understanding of instructions. Viviana Pope, YudiD, [facility] Primary Care Clinical Pharmacist [facility] Referring Provider: VINCENT HERBERT [[id number]] Allergies As of Date: 02/06/2018 Noted Allergy Reaction LYRICA (PREGABALIN) 08/05/2012 10 - Anaphylaxis Comments: Not sure if accurate. Can take gabapentin. Patient is unsure of reaction. ACCUPRIL (QUINAPRIL HCL) 08/12/2005 5 - Intolerance Comments: dizziness AMLODIPINE 04/24/2008 7 - Swelling Comments: Leg edema ATENOLOL 09/29/2010 7 - Swelling ATORVASTATIN 11/01/2017 5 - Intolerance Comments: Muscle cramps and weakness EFFEXOR (VENLAFAXINE HCL) 09/22/2005 Comments: swelling high blood pressure JANUVIA (SITAGLIPTIN) 09/21/2011 8 - GI Upset 14 - Other: See Comments Comments: Patient states she couldn't eat METOPROLOL 09/21/2009 7 - Swelling MOBIC (MELOXICAM) 08/12/2005 8 - GI Upset PROZAC (FLUOXETINE HCL) 08/12/2005 5 - Intolerance Comments: tremor RISPERIDONE 12/22/2009 1 - Mental Status Change SEROQUEL (QUETIAPINE FUMARATE) 10/05/2006 Comments: hypertension,swelling VANCOMYCIN 08/10/2017 9 - Itching 14 - Other: See Comments Comments: red all over VIOXX (ROFECOXIB) 08/12/2005 8 - GI Upset WELLBUTRIN (BUPROPION HCL) 08/12/2005 5 - Intolerance Comments: nightmares Date Reviewed: 01/17/2018 Reviewed by: Kate Brunner LPN - Fully Assessed Reason for Visit: Allied Health Visit [5] Cmt: DM f/u Primary Visit Diagnosis:Type 2 diabetes mellitus without complication, unspecified whether group home insulin use (HCC) [E11.9] Order(s):insulin glargine (BASAGLAR KWIKPEN U-100 INSULIN) 100 unit/mL (3 mL) inpnInject 10 Units subcutaneously daily at bedtime.Disp: Rfl: 0 Prescriptions as of 02/06/2018 Sig: ARIPIPRAZOLE 10 MG TABLET Take 1 tablet by mouth once d* ASPIRIN 81 MG TABLET,DELAYED * Take 1 tablet by mouth once d* BACLOFEN 10 MG TABLET take 1 tablet by mouth twice * BLOOD SUGAR DIAGNOSTIC STRIPS Test blood sugars up to 4 tiara* BLOOD-GLUCOSE METER KIT Glucose Meter of Choice - Kit* CHOLECALCIFEROL (VITAMIN D3) * Take 1 capsule by mouth once * CHOLECALCIFEROL (VITAMIN D3) * Take 1 tablet by mouth once e* DULOXETINE 60 MG CAPSULE,JODI* Take 1 capsule by mouth once * FUROSEMIDE 0.5 MG/ML PEDIATRI* DAILY FUROSEMIDE 20 MG TABLET Take 1 tablet by mouth once d* GABAPENTIN 300 MG CAPSULE Take 1 capsule by mouth twice* HYDROCODONE 5 MG-ACETAMINOPHE* TAKE ONE TABLET TWICE DAILY INSULIN GLARGINE (U-100) 100 * Inject 10 Units subcutaneousl* PEN NEEDLE, DIABETIC 32 GAUGE* Use one needle for each dose.* LANCETS 30 GAUGE Test twice daily Dx: 250.02 LINAGLIPTIN 5 MG TABLET Take 1 tablet by mouth once d* NABUMETONE 500 MG TABLET Take 1 tablet by mouth once d* NITROGLYCERIN 0.4 MG SUBLINGU* Dissolve 1 tablet under the t* NYSTATIN 100,000 UNIT/GRAM TO* Apply 1 application to affect* POLYETHYLENE GLYCOL 3350 17 G* Take 17 g by mouth once daily. POTASSIUM CHLORIDE ER 10 MEQ * Take 1 tablet by mouth once d* PRIMIDONE 50 MG TABLET TAKE ONE TABLET ONCE DAILY AT* RANITIDINE 150 MG TABLET Take 1 tablet by mouth twice * SPIRONOLACTONE 25 MG TABLET Take 1 tablet by mouth once d* TRAZODONE 50 MG TABLET Take 0.5 tablets by mouth padmini* Problem List As Of Date 02/06/2018 Noted Resolved Major depressive disorder, recurrent episode, u*INVALID FOR*11/24/2014 More... Anxiety state [F41.1] INVALID FOR* BENIGN HYPERTENSION [I10] INVALID FOR* OSTEOARTHROS NOS-UNSPEC [M19.90] INVALID FOR*02/07/2007 ABNL GLANDULAR PAP SMEAR CERVIX [R87.619] INVALID FOR* HYPERPROLACTINEMIA [E22.9] INVALID FOR* IRREGULAR MENSTRUATION [N92.6] INVALID FOR* ESOPHAGEAL REFLUX [K21.9] INVALID FOR* ACUTE GASTRITIS W/O HEMORRHAGE [K29.00] INVALID FOR*02/07/2007 DIAPHRAGMATIC HERNIA [K44.9] INVALID FOR* Unspecified gastritis and gastroduodenitis with*INVALID FOR*07/24/2016 Localized osteoarthrosis not specified whether *INVALID FOR*07/24/2016 More... Pain in joint, site unspecified [M25.50] INVALID FOR*07/24/2016 Routine general medical examination at a health*INVALID FOR*11/29/2011 Class: Chronic More... Routine gynecological examination [Z01.419] INVALID FOR*11/29/2011 Class: Chronic More... More... Morbid obesity [E66.01] INVALID FOR* Hyperprolactinemia [E22.1] INVALID FOR*01/30/2012 Obstructive sleep apnea [G47.33] INVALID FOR* More... Medication side effects [T88.7XXA] INVALID FOR*08/10/2017 SVT (supraventricular tachycardia) [I47.1] Type II or unspecified type diabetes mellitus w*INVALID FOR*04/10/2012 More... Congestive heart failure [I50.9] INVALID FOR* Spondylolisthesis [M43.10] INVALID FOR* Lumbar facet arthropathy [M47.816] INVALID FOR* DDD (degenerative disc disease), lumbar [M51.36]INVALID FOR* Diabetes mellitus [E11.9] INVALID FOR*11/24/2014 DDD (degenerative disc disease), cervical [M50.*INVALID FOR* DM (diabetes mellitus) (HCC) [E11.9] INVALID FOR* PMB (postmenopausal bleeding) [N95.0] INVALID FOR* Dysthymia [F34.1] INVALID FOR* Major depressive disorder, recurrent episode, m*INVALID FOR* More... Pain disorder with psychological factors [F45.4*INVALID FOR* Diffuse myofascial pain syndrome [M79.18] INVALID FOR* Bilateral primary osteoarthritis of knee [M17.0]INVALID FOR* Obesity, Class III, BMI >= 40 [E66.01] INVALID FOR*10/20/2017 Liver disease [K76.9] INVALID FOR* More... Umbilical hernia without obstruction and withou*INVALID FOR* More... Prescriptions ordered this encounter Disp Refills Start End INSULIN GLARGINE (U-100) 100 UNIT/ML* 0 02/06/2018 08/05/2018 Class: Med Update Route: SUBCUTANEOUS Sig: Inject 10 Units subcutaneously daily at bedtime. Medications Discontinued During This Encounter insulin glargine (BASAGLAR KWIKPEN U* 3 Pen 5 11/05/2017 02/06/2018 Route: SUBCUTANEOUS Sig: Inject 30 Units subcutaneously daily at bedtime. Disc: Reason for discontinue is not on file. Encounter Status:Closed by LINDSEY (PHARMACIST)VIVIANA on 02/06/18 CNOV Observed: 01/30/2018 Status: COMPLETED Source: [place] 1:00 PM [facility] REPOSITORY Office Visit (GSPSMN) KATHLEEN KHAN V ([id number]) 1960 F Date Time Provider Department 01/30/18 1:00 PM SHERRY DIAZ) GSPSMN During your visit today, we recorded the following information about you: Weight Height 162.6 kg 1.551 m Sherry Hugo Diaz 02/03/2018 5:35 PM Signed [facility] EVALUATION DATE OF SERVICE: 01/30/2018 TIME OF SERVICE: 1:00-2:00PM [facility] CENTER: 3B CPT CODE: 86869 Psychiatric diagnostic evaluation BILLING CODE: ENDO PSYL MAIN Pending [facility] DATE OF FIRST SERVICE THIS CYCLE: 01/30/2018 SESSION #: 1 The patient signed the Informed Consent for Psychological Evaluation AND Care Form, and the [facility] care insurance benefits, fees for service, emergency procedures, and the limits of confidentiality that may pertain with any given case were discussed with the patient. Ms. Khan was given a copy of the consent form. IDENTIFYING INFORMATION: Ms. Kathleen Khan is a 58 year old female. She was referred by Dr. Slater. Ms. Khan is seeking gastric sleeve surgery for morbid obesity. COLLATERAL PARTIES PRESENT: none. MOTIVATION FOR SURGERY / UNDERSTANDING OF PROCEDURE / EXPECTATIONS: Ms. Khan notes she is motivated for surgery by medical problems and to extend duration of life. The patient has a good understanding of the surgery, risks, and benefits. She has not talked with other people who have undergone the procedure. Specific areas of understanding that should be addressed include n/a. The patient has not attended a weight loss surgery support group. The patient expects to lose 100 lbs. following surgery over ?? months. Other expectations include increased energy and increased mobility. Educated patient regarding expected weight loss after surgical procedure and timeline of weight loss/surgery recovery. CAPACITY TO CONSENT: Ms. Khan evidences the following concerns regarding capacity to consent: none noted. MEDICAL PROBLEMS ACTIVE PROBLEM LIST Anxiety State Essential Hypertension, Benign ABNL GLANDULAR PAP SMEAR CERVIX HYPERPROLACTINEMIA Irregular Menstrual Cycle Esophageal Reflux Diaphragmatic Hernia Without Mention of Obstruction Or Gangrene Morbid Obesity (Hcc) Obstructive Sleep Apnea Svt (Supraventricular Tachycardia) (Hcc) Congestive Heart Failure (Hcc) Spondylolisthesis Lumbar Facet Arthropathy Ddd (Degenerative Disc Disease), Lumbar Ddd (Degenerative Disc Disease), Cervical Dm (Diabetes Mellitus) (Hcc) Pmb (Postmenopausal Bleeding) Dysthymia Major depressive disorder, recurrent episode, moderate (HCC) Pain Disorder With Psychological Factors Diffuse Myofascial Pain Syndrome Bilateral Primary Osteoarthritis of Knee Liver Disease Umbilical Hernia Without Obstruction and Without Gangrene Past surgeries? Yes. PAST SURGICAL HISTORY Procedure Laterality Date - CERVICAL BIOPSY OR EXCISION 07/19/05 endocervical polyp - COLONOSCOP W/ OR W/O BRSH SPEC 01/09/2012 Colonoscopy repeat 10 years - COLPOSCOPY (VAGINOSCOPY) Colposcopy - EGD W/O BRSH SPECIMEN W/BX 01/16/07 - EGD W/O OR W/BRUSH/WASH 01/09/2012 EGD - HYSTEROSCOPY DX 12/17/2014 [facility] - LAP CHOLECYSTECT/CHOLANGIOGRAPHY 05/15/08 History of psychological complications post-surgery? No MEDICATIONS Current Outpatient Prescriptions: ARIPiprazole (ABILIFY) 10 mg tablet Take 1 tablet by mouth once daily. aspirin, enteric coated (ECOTRIN LOW STRENGTH) 81 mg EC tablet Take 1 tablet by mouth once daily. baclofen (LIORESAL) 10 mg tablet take 1 tablet by mouth twice a day blood sugar diagnostic (BLOOD GLUCOSE TEST) test strip Test blood sugars up to 4 times daily as directed. Dx: Type 2 DM - Controlled E11.9 Insulin: No Blood-Glucose Meter monitoring kit Glucose Meter of Choice - Kit - Dx: Type 2 DM - Controlled E11.9 Use twice daily as directed cholecalciferol, Vitamin D3, (VITAMIN D3) 50,000 unit cap capsule Take 1 capsule by mouth once each week. cholecalciferol, vitamin D3, 50,000 unit tab Take 1 tablet by mouth once each week for 8 doses. DULoxetine (CYMBALTA) 60 mg capsule Take 1 capsule by mouth once daily. furosemide (LASIX) 0.5 mg/mL syrg DAILY furosemide (LASIX) 20 mg tablet Take 1 tablet by mouth once daily. gabapentin (NEURONTIN) 300 mg capsule Take 1 capsule by mouth twice daily for 90 days. HYDROcodone-acetaminophen (NORCO) 5-325 mg per tablet TAKE ONE TABLET TWICE DAILY insulin glargine (BASAGLAR KWIKPEN U-100 INSULIN) 100 unit/mL (3 mL) inpn Inject 30 Units subcutaneously daily at bedtime. Insulin Hamlin, Disposable, (BD ULTRA-FINE MADI PEN NEEDLE) 32 gauge x ndle Use one needle for each dose. 1/day. lancets (TRUEPLUS LANCETS) 30 gauge misc Test twice daily Dx: 250.02 linagliptin (TRADJENTA) 5 mg tab Take 1 tablet by mouth once daily. nabumetone (RELAFEN) 500 mg tablet Take 1 tablet by mouth once daily. TAKE WITH FOOD nitroglycerin sublingual (NITROQUICK) 0.4 mg SL tablet Dissolve 1 tablet under the tongue as needed. FOR CHEST PAIN. IF NO RELIEF CALL 911 nystatin (MYCOSTATIN) cream Apply 1 application to affected area twice daily. polyethylene glycol 3350 (MIRALAX, GLYCOLAX) 17 gram/dose powder Take 17 g by mouth once daily. potassium chloride ER (K-DUR, KLOR-CON) 10 mEq tablet Take 1 tablet by mouth once daily. primidone (MYSOLINE) 50 mg tablet TAKE ONE TABLET ONCE DAILY AT BEDTIME ranitidine (ZANTAC) 150 mg tablet Take 1 tablet by mouth twice daily. spironolactone (ALDACTONE) 25 mg tablet Take 1 tablet by mouth once daily. traZODone (DESYREL) 50 mg tablet Take 0.5 tablets by mouth daily at bedtime. No current facility-administered medications for this visit. Medications were reviewed with patient. ALLERGIES ALLERGIES Allergen Reactions - Lyrica [Pregabalin] Anaphylaxis Not sure if accurate. Can take gabapentin. Patient is unsure of reaction. - Accupril [Quinapril* Intolerance dizziness - Amlodipine Swelling Leg edema - Atenolol Swelling - Atorvastatin Intolerance Muscle cramps and weakness - Effexor [Venlafaxin* swelling high blood pressure - Januvia [Sitaglipti* GI Upset, Other: See Comments Patient states she couldn't eat - Metoprolol Swelling - Mobic [Meloxicam] GI Upset - Prozac [Fluoxetine * Intolerance tremor - Risperidone Mental Status Change - Seroquel [Quetiapin* hypertension,swelling - Vancomycin Itching, Other: See Comments red all over - Vioxx [Rofecoxib] GI Upset - Wellbutrin [Bupropi* Intolerance nightmares EATING/WEIGHT HISTORY: Ms. Khan was overweight as a child. Her weight at age 18 was 200 lbs. The patient reports the following factors as contributing to weight gain: childhood influences, food insecurity, protection from other people, inactivity. She patient reports a family history of obesity. The patient's current weight is 358.5 lbs. Her BMI is 67.70. The patient has tried weight loss strategies in the past including: exercise/increased activity, [employer], self-directed diets, Weight Watchers, and prescribed appetite suppressants The patient denies a history of laxative/diuretic use. The patient denies a history of vomiting to lose weight. The patient denies a history of an eating disorder. She has not had treatment for eating disorders in the past. The most patient has lost is 50 lbs using caloric restriction and exercise/increased activity. Patient reports eating 3 meals/day, with 1 snack. The patient notes coffee/tea use of 0 cups/day. Soda pop usage is 0 per day. ? Breakfast: protein shake and 1/2 cup fruit ? Lunch: protein shake, fruit or vegetable ? Dinner: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 Other (Specify): Medical professional's treatment with and professional impressions of patient. All psychological and psychiatric evaluations and testing, as well as, verbal exchange of information regarding patient's emotional stability over past year and any need for collaborative care (please see attached ?Letter to Healthcare Provider? for information being requested either via records or a summary letter). This consent is subject to revocation at any time except to the extent the action has taken thereon. This authorization and consent will in 60 days from the date of authorization written below. Your health care (or payment for care) will not be affected by whether or not you sign this authorization. Once your health care information is released, redisclosure of your health care information by the Recipient may no longer be protected by law. Signature of Patient/Patient's Personal Layout Man Relationship if not Patient /____/ Printed Name Date Signed _ If other than the patient's signature, a copy of legal paperwork verifying the patient's personal hospital sales representative MUST accompany the request (e.g., court appointed guardian, durable power of finance attorney for healthcare). For a patient: A certificate coupled with executor or telecommunications administrator of estate paperwork must accompany authorization. Exception: parent signing for patient under the age of 18. [facility]/ [place] [address] FAX: [phone] Dear Healthcare Provider: Kathleen Khan (: 1960) is being seen for psychological evaluation for bariatric surgery in the [facility]. Completion of this evaluation is conditional, in part, upon obtaining your consultation. Please complete the attached 2-page form letter designed to expedite the requested release of information. This information will be used to facilitate collaboration and consistency in this patient's care as they participate in [facility]. Our goal is to facilitate emotional stability before and after surgery in order to optimize their surgical outcome. If you have questions, please do not hesitate to call me at . Sincerely, Sherry Diaz, Ph.D. [facility] Date: ___/___/ Name of Healthcare Provider: Address: Phone: FAX: INFORMATION TO BE RELEASED TO: ATTN: Sherry Diaz, Ph.D. [facility] [address] [place] [address] Dear Mental Health Care Provider, The following information is being provided below in response to this patient?s request for information in order to facilitate completion of their behavioral health evaluation for bariatric surgery: Patient Name: Kathleen Khan : 1960 Social Security Number: [id number] Start Date of Treatment: ___/___/ Date Patient was Last Seen: ___/___/ (? Please check if patient is no longer under your care.) Frequency of Treatment: ? weekly ? every other week ? monthly ? 3 months ? other: Mental Health Diagnosis at last visit: [place] I: [place] II: [place] III: [place] IV: [place] V (GAF): Any known active or historical substance abuse or dependence including tobacco and marijuana (if yes, please provide as much detail as possible): Do you have any knowledge of patient having psychiatric hospitalization(s), suicidal ideation/attempts, or chemical dependency treatment in the past year? ? Yes ?No Current treatment plan (e.g., please list specific psychotropic medication regimen and/or psychotherapy goals, if applicable) Is the patient adherent to your treatment recommendations? ? Yes ?No If not, please explain: Are you willing to follow up with patient before and after weight loss surgery? ? Yes ?No What is your professional opinion regarding patient?s emotionally stability over the past year? Any specific recommendations that you have for the [facility] psychology team in assisting this patient with their weight management treatment? ? No ? Yes If yes, please specify: ? Please see enclosed mental health evaluation or test data including personality testing. ? Not available. Signature of Healthcare Provider: Type of Healthcare Provider: ? Primary Care Physician ? Psychologist ? Psychiatrist ? Other Mental Health Care Worker (please specify: ) *Would you like to be contacted for verbal consultation by the [facility] Psychology Team? ? No ? Yes Encounter Status:Closed by DAMASO MUNIZ PHD on 02/04/18 CNOV Observed: 01/30/2018 Status: COMPLETED Source: [facility] 12:00 PM [facility] REPOSITORY Office Visit (PSMN) KATHLEEN KHAN V ([id number]) 1960 F Date Time Provider Department 01/30/18 12:00 PM [facility] TESTING MAIN [facility] During your visit today, we recorded the following information about you: Sherry Diaz PsyD 02/08/2018 1:17 PM Signed [facility] PSYCHOLOGICAL TEST REPORT BILLING CODE: Flavio RE: Kathleen Khan F#: [id number] TEST ADMINISTERED: [place] Multiphasic Personality Inventory-2 Restructured Form (MMPI-2-RF) Date Administered: 01/30/2018 Date Reviewed: 01/30/2018 Time Reviewed: 35 minutes CPT#: 96559 (1 unit) The patient completed the MMPI-2-RF in the [facility] and was proctored by trained personnel. The mortgage loan underwriter was available for help with the testing and completed the subsequent interpretation and summary. Test completion took the patient approximately 45 minutes and the psychologist interpretation and report writing took an additional 35 minutes. The patient signed an informed consent for psychological testing that explained the purposes of testing, information about testing and confidentiality, and information about the supervisory nature of the relationship and oversight by a licensed psychologist. BACKGROUND INFORMATION: Ms. Khan is a 58 year old female seeking bariatric surgery referred by Surgery. She completed the MMPI-2-RF and BES as part of a comprehensive evaluation. TEST RESULTS: Validity and Interpretation She verbalized an understanding of the purposes of the assessment. Ms. Khan responded to MMPI-2-RF test items with possible over-reporting of cognitive symptoms. While genuine, substantial cognitive problems can not be ruled out entirely, over-reporting is likely whether it be due to noncredible memory complaints or substantial emotional dysfunction. In addition, patient's responses suggest possible under-reporting. Such a response style may be explained 1) as an attempt to present oneself in a favorable light or 2) by a background stressing traditional values. Any absence of elevation on the substantive scales should be interpreted with caution. Non- elevated scores can not definitively rule out problems, and elevated scores may underestimate problems that are identified. The resulting test protocol is valid but cognitive scale scores should be interpreted with caution. Overall Functioning Based on her score profile, pt?s overall functioning generally reflects significant emotional distress (DK = 65-79), no clinically significant thought dysfunction (THD < 65), and an above average level of behavioral constraint (BXD < 39). However, problems in these areas cannot be ruled out due to possible under-reporting. Patient's verbal report of functioning aligns with test results and suggest that she is currently experiencing significant emotional distress. Specific Problem and Strength Areas Specifically, the patient profile reflects a lack of positive emotional experiences, significant anhedonia, and lack of interest (RC2 >= 65). Such individuals are often pessimistic, socially introverted, and socially disengaged. They lack energy and display vegetative symptoms of depression (RC2>=65). Patient endorsed significant symptoms of depression including depressed mood, anhedonia, and feelings of worthlessness. Patient profile also reflects multiple somatic complaints that may include head pain and neurological and gastrointestinal symptoms (RC1 65- 79). Individuals with a similar profile present as preoccupied with multiple somatic complaints and fatigue. Their somatic concerns often involve a psychological component, and they are also prone to developing physical symptoms in response to stress. Patient corroborated test results and reported several chronic health conditions that impact functioning. Specific areas of strength cannot be determined due to indications of possible under-reporting. The patient reports a general sense of malaise manifested in poor health and feeling tired, weak, and incapacitated (T>=80). Such individuals are preoccupied with poor health and likely to complain of sleep disturbance, fatigue, low energy, and sexual dysfunction. She acknowledged persistent fatigue and lack of energy. The patient reports vague neurological complaints (T=65-91). Patient endorsed neurological symptoms related in part to pain disorders. The patient reports a diffuse pattern of cognitive difficulties (T=65-80). Such individuals often complain of memory and concentration difficulties and have a low tolerance for frustration. Patient denied significant cognitive difficulties. The patient reports lacking confidence and feeling useless (T>=70). Such individuals often feel inferior and insecure. They are also prone to rumination and self-disparaging thoughts. Patient acknowledged feelings of worthlessness. The patient reports feeling anxious (T65-99). Such individuals may experience intrusive ideation, sleep difficulties including nightmares, and post-traumatic distress. She reported a history of anxiety, panic attacks, and insomnia. She stated that symptoms have improved since initiating psychotropic medications. Critical items endorsed on the scale include: I have nightmares every few nights. I feel anxiety about something or someone almost all the time. The patient reports multiple fears that significantly restrict normal activity in and outside the home (T65-89). Patient acknowledged multiple fears and avoidance behaviors. There are no indications of historical or active suicidal ideation and/or attempts in this protocol. Patient disclosed an inpatient psychiatric hospitalization between 05/29/2012 and 06/02/2012 related to suicidal ideation with no plan or intent. She denied current thoughts of or suicidal ideation, intent, or plan. There are no indications of externalizing dysfunction in this protocol. However, due to indications of possible under-reporting, these problems cannot be ruled out. The patient does not report significant past or current substance abuse. Interpersonal Functioning The patient reports being unassertive and submissive. Such individuals don't like being in charge, fail to stand up for themselves, and are often ready to give in to others (T>=80). Such individuals tend to be overcontrolled, passive and submissive in interpersonal relationships. She acknowledged interpersonal passivity. The patient reports not enjoying social events and avoiding social situations (T=65-79). Similar individuals are introverted and emotionally restricted. They have difficulty forming close relationships. Patient endorsed gaining limited pleasure from social events. She denied close friendships. The patient reports being shy, easily embarrassed, and uncomfortable around others (T>=65). She acknowledged uncomfortableness in social situations. Interests Patient reports an average interest in activities or occupations of an aesthetic or literary nature (e.g., writing, music, theater). Patient reports little to no interest in activities or occupations of a mechanical or physical nature (e.g., fixing and building things, the outdoors, sports) (T<39). Personality The patient reports a lack of positive emotional experiences and avoidance of social situations. Such individuals often complain of depression and anhedonia. They tend to be socially introverted, pessimistic, and lacking in interests. Diagnostic Considerations Ms. Khan's test results indicate the following possible diagnoses for further consideration: Anxiety related disorders including PTSD Depression-related disorder Somatoform disorder, if physical origin of somatic complaints has been ruled out Agoraphobia and specific phobias Disorders characterized by passive-submissive behavior such as dependent personality disorder Disorders associated with social avoidance such as avoidant personality disorder Social phobia Treatment Considerations Areas for Further Evaluation: Explore origin of malaise complaints, cognitive complaints (This may require a neuropsychological evaluation.) Explore the extent to which genuine physical health problems contribute to the somatic complaints Explore need for antidepressant medication should be evaluated. Explore need for inpatient treatment should be evaluated for significant depression. Psychotherapy Process Issues: Emotional difficulties may motivate pt for treatment Likely to reject psychological interpretations of somatic complaints Malaise may impede willingness or ability to engage in treatment Possible Targets for Treatment: Anhedonia Anxiety Anxiety in social situations Behavior-restricting fears Difficulties associated with social avoidance Low self-esteem and other manifestations of self-doubt Reducing passive, submissive behavior The above test results were consistent with the interview data. Patient endorsed significant emotional distress and a limited range of adaptive coping strategies. She expressed discomfort in social situations and persistent feelings of worthlessness and self-doubt. She denied cognitive complaints. DIAGNOSTIC AND TREATMENT CONSIDERATIONS: Diagnostic considerations based on assessment results and interview data include: Primary Diagnoses: Major Depressive Disorder, Recurrent, Moderate Anxiety Disorder NOS Binge Eating Disorder, Moderate, in partial remission Psychological Factors Affecting Morbid Obesity Personality Diagnoses:Deferred Global Assessment of Functionin-51 Moderate symptoms or moderate difficulty in social, occupational or school functioning. IMPRESSIONS: Based on the information gathered through the interview and testing process, the patient may be an acceptable candidate pending completion of the requirements below. PLAN: 1) REQUIREMENTS FOR COMPLETING BEHAVIORAL HEALTH EVALUATION: *Documentation from current psychiatrist *Establish relationship with a psychologist and provide documentation of this to [facility] psychology ?(To schedule with [facility] Department of Psychiatry and Psychology, call [phone]) *[facility] attendance or equivalent individual treatment and [facility] psychology follow-up appointment after completion of group (To schedule with [facility] Binge eating group call [phone] 2) The patient may benefit from the following during the surgery process: *Ongoing psychotropic medication management by Psychiatrist *Participation in a Weight Loss Surgery support group *Read Preparing for Weight Loss Surgery: Workbook (Treatments That Work) by Gee Magana, Aneudy Vargas, and Gemma Valiente ([employer], 2006) *Follow up with psychology as an inpatient if needed *Follow up with psychology at 1, 3, 6, 12 months and yearly thereafter as an outpatient *Do not use alcohol, tobacco, and street drugs for at least 6 months prior to and after surgery. ? 3) Insurance letter not completed at this time. Patient needs to complete additional preparation as outlined above. 4) Should the patient require or wish to seek additional psychological support or services, either pre- or post-operatively, I am able to provide those services. 5) The above results were discussed verbally with the patient in session in lieu of providing a written copy of the test results. The patient can request a written copy through [facility]. The above recommendations and treatment plan will be communicated back to the referring physician by way of the shared electronic medical record. This report is not intended for forensic purposes. Sherry Diaz, Ph.D., Licensed Esthetician Supervision comments: Reviewed test protocol and fully reviewed the interpretive report above. The above information has been confirmed by me. Profile was valid for interpretation with the following caveat: Possible overreporting of somatic/cognitive symptoms, and underreporting more generally. Profile was significant for elevations across several domains including but not limited to depression, somatic complaints, anxiety, and social avoidance. The test protocol was fairly consistent with the clinical interview. She seemed more forthcoming about emotional distress in testing than in the interview. I agree with the above recommendation and treatment plan. I met with this patient and agree with the above diagnosis and treatment plan. Damaso Muniz, Ph.D., Psychologist Patient Name: Kathleen Khan [facility]#: [id number] Referring Provider: KATIE SLATER [[id number]] Allergies As of Date: 01/30/2018 Noted Allergy Reaction LYRICA (PREGABALIN) 08/05/2012 10 - Anaphylaxis Comments: Not sure if accurate. Can take gabapentin. Patient is unsure of reaction. ACCUPRIL (QUINAPRIL HCL) 08/12/2005 5 - Intolerance Comments: dizziness AMLODIPINE 04/24/2008 7 - Swelling Comments: Leg edema ATENOLOL 09/29/2010 7 - Swelling ATORVASTATIN 11/01/2017 5 - Intolerance Comments: Muscle cramps and weakness EFFEXOR (VENLAFAXINE HCL) 09/22/2005 Comments: swelling high blood pressure JANUVIA (SITAGLIPTIN) 09/21/2011 8 - GI Upset 14 - Other: See Comments Comments: Patient states she couldn't eat METOPROLOL 09/21/2009 7 - Swelling MOBIC (MELOXICAM) 08/12/2005 8 - GI Upset PROZAC (FLUOXETINE HCL) 08/12/2005 5 - Intolerance Comments: tremor RISPERIDONE 12/22/2009 1 - Mental Status Change SEROQUEL (QUETIAPINE FUMARATE) 10/05/2006 Comments: hypertension,swelling VANCOMYCIN 08/10/2017 9 - Itching 14 - Other: See Comments Comments: red all over VIOXX (ROFECOXIB) 08/12/2005 8 - GI Upset WELLBUTRIN (BUPROPION HCL) 08/12/2005 5 - Intolerance Comments: nightmares Date Reviewed: 01/17/2018 Reviewed by: Kate Brunner LPN - Fully Assessed Primary Visit Diagnosis:Major depressive disorder, recurrent episode, moderate (HCC) [F33.1] Other Visit Diagnoses:Anxiety disorder, unspecified type [F41.9] Binge-eating disorder, in partial remission, moderate [F50.81] Psychological factors affecting morbid obesity (HCC) [E66.01, F54] Prescriptions as of 01/30/2018 Sig: ARIPIPRAZOLE 10 MG TABLET Take 1 tablet by mouth once d* ASPIRIN 81 MG TABLET,DELAYED * Take 1 tablet by mouth once d* BACLOFEN 10 MG TABLET take 1 tablet by mouth twice * BLOOD SUGAR DIAGNOSTIC STRIPS Test blood sugars up to 4 tiara* BLOOD-GLUCOSE METER KIT Glucose Meter of Choice - Kit* CHOLECALCIFEROL (VITAMIN D3) * Take 1 capsule by mouth once * CHOLECALCIFEROL (VITAMIN D3) * Take 1 tablet by mouth once e* DULOXETINE 60 MG CAPSULE,JODI* Take 1 capsule by mouth once * FUROSEMIDE 0.5 MG/ML PEDIATRI* DAILY FUROSEMIDE 20 MG TABLET Take 1 tablet by mouth once d* HYDROCODONE 5 MG-ACETAMINOPHE* TAKE ONE TABLET TWICE DAILY PEN NEEDLE, DIABETIC 32 GAUGE* Use one needle for each dose.* LANCETS 30 GAUGE Test twice daily Dx: 250.02 LINAGLIPTIN 5 MG TABLET Take 1 tablet by mouth once d* NABUMETONE 500 MG TABLET Take 1 tablet by mouth once d* NITROGLYCERIN 0.4 MG SUBLINGU* Dissolve 1 tablet under the t* NYSTATIN 100,000 UNIT/GRAM TO* Apply 1 application to affect* POLYETHYLENE GLYCOL 3350 17 G* Take 17 g by mouth once daily. POTASSIUM CHLORIDE ER 10 MEQ * Take 1 tablet by mouth once d* PRIMIDONE 50 MG TABLET TAKE ONE TABLET ONCE DAILY AT* RANITIDINE 150 MG TABLET Take 1 tablet by mouth twice * SPIRONOLACTONE 25 MG TABLET Take 1 tablet by mouth once d* TRAZODONE 50 MG TABLET Take 0.5 tablets by mouth padmini* X GABAPENTIN 300 MG CAPSULE Take 1 capsule by mouth twice* X INSULIN GLARGINE (U-100) 100 * Inject 30 Units subcutaneousl* Problem List As Of Date 01/30/2018 Noted Resolved Major depressive disorder, recurrent episode, u*INVALID FOR*11/24/2014 More... Anxiety state [F41.1] INVALID FOR* BENIGN HYPERTENSION [I10] INVALID FOR* OSTEOARTHROS NOS-UNSPEC [M19.90] INVALID FOR*02/07/2007 ABNL GLANDULAR PAP SMEAR CERVIX [R87.619] INVALID FOR* HYPERPROLACTINEMIA [E22.9] INVALID FOR* IRREGULAR MENSTRUATION [N92.6] INVALID FOR* ESOPHAGEAL REFLUX [K21.9] INVALID FOR* ACUTE GASTRITIS W/O HEMORRHAGE [K29.00] INVALID FOR*02/07/2007 DIAPHRAGMATIC HERNIA [K44.9] INVALID FOR* Unspecified gastritis and gastroduodenitis with*INVALID FOR*07/24/2016 Localized osteoarthrosis not specified whether *INVALID FOR*07/24/2016 More... Pain in joint, site unspecified [M25.50] INVALID FOR*07/24/2016 Routine general medical examination at a health*INVALID FOR*11/29/2011 Class: Chronic More... Routine gynecological examination [Z01.419] INVALID FOR*11/29/2011 Class: Chronic More... More... Morbid obesity [E66.01] INVALID FOR* Hyperprolactinemia [E22.1] INVALID FOR*01/30/2012 Obstructive sleep apnea [G47.33] INVALID FOR* More... Medication side effects [T88.7XXA] INVALID FOR*08/10/2017 SVT (supraventricular tachycardia) [I47.1] Type II or unspecified type diabetes mellitus w*INVALID FOR*04/10/2012 More... Congestive heart failure [I50.9] INVALID FOR* Spondylolisthesis [M43.10] INVALID FOR* Lumbar facet arthropathy [M47.816] INVALID FOR* DDD (degenerative disc disease), lumbar [M51.36]INVALID FOR* Diabetes mellitus [E11.9] INVALID FOR*11/24/2014 DDD (degenerative disc disease), cervical [M50.*INVALID FOR* DM (diabetes mellitus) (HCC) [E11.9] INVALID FOR* PMB (postmenopausal bleeding) [N95.0] INVALID FOR* Dysthymia [F34.1] INVALID FOR* Major depressive disorder, recurrent episode, m*INVALID FOR* More... Pain disorder with psychological factors [F45.4*INVALID FOR* Diffuse myofascial pain syndrome [M79.18] INVALID FOR* Bilateral primary osteoarthritis of knee [M17.0]INVALID FOR* Obesity, Class III, BMI >= 40 [E66.01] INVALID FOR*10/20/2017 Liver disease [K76.9] INVALID FOR* More... Umbilical hernia without obstruction and withou*INVALID FOR* More... Follow-up and Disposition History Recorded Encounter Status:Closed by DAMASO MUNIZ PHD on 02/18/18 PROGRESS Observed: 01/30/2018 Status: COMPLETED Source: [place] [place] 11:51 AM [facility] [place] REPOSITORY HNO ID: [id number] Author: Sherry Diaz Service: (none) Author Type: Psychologist Type: Progress Notes Filed: 02/04/2018 2:18 PM Note Text: [facility] EVALUATION DATE OF SERVICE: 01/30/2018 TIME OF SERVICE: 1:00-2:00PM COST CENTER: [facility] CPT CODE: 77069 Psychiatric diagnostic evaluation BILLING CODE: ENDO PSYL [facility] DATE OF FIRST SERVICE THIS CYCLE: 01/30/2018 SESSION #: 1 The patient signed the Informed Consent for Psychological Evaluation AND Care Form, and the [facility] insurance benefits, fees for service, emergency procedures, and the limits of confidentiality that may pertain with any given case were discussed with the patient. Ms. Khan was given a copy of the consent form. IDENTIFYING INFORMATION: Ms. Kathleen Khan is a 58 year old female. She was referred by Dr. Slater. Ms. Khan is seeking gastric sleeve surgery for morbid obesity. COLLATERAL PARTIES PRESENT: none. MOTIVATION FOR SURGERY / UNDERSTANDING OF PROCEDURE / EXPECTATIONS: Ms. Khan notes she is motivated for surgery by medical problems and to extend duration of life. The patient has a good understanding of the surgery, risks, and benefits. She has not talked with other people who have undergone the procedure. Specific areas of understanding that should be addressed include n/a. The patient has not attended a weight loss surgery support group. The patient expects to lose 100 lbs. following surgery over ?? months. Other expectations include increased energy and increased mobility. Educated patient regarding expected weight loss after surgical procedure and timeline of weight loss/surgery recovery. CAPACITY TO CONSENT: Ms. Khan evidences the following concerns regarding capacity to consent: none noted. MEDICAL PROBLEMS ACTIVE PROBLEM LIST Anxiety State Essential Hypertension, Benign ABNL GLANDULAR PAP SMEAR CERVIX HYPERPROLACTINEMIA Irregular Menstrual Cycle Esophageal Reflux Diaphragmatic Hernia Without Mention of Obstruction Or Gangrene Morbid Obesity (Hcc) Obstructive Sleep Apnea Svt (Supraventricular Tachycardia) (Hcc) Congestive Heart Failure (Hcc) Spondylolisthesis Lumbar Facet Arthropathy Ddd (Degenerative Disc Disease), Lumbar Ddd (Degenerative Disc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 Association guidelines indicate that patients with HgbA1c in the range 5.7-6.4% are at increased risk for development of diabetes, and intervention by lifestyle modification may be beneficial. HgbA1c greater or equal to 6.5% is considered diagnostic of diabetes. LAB HBA0 mg/dL Est. Average Glucose 117 Result Comment: eAG: (Estimated average glucose) is a calculated value from HgbA1c and is hospital sales representative of the average blood glucose level in the last 2-3 month period. Performed By: #### BMP, HBA1C #### [facility] [address] [place], [place] [address] ALBUMIN/CREAT RATIO Collected: 01/26/2018 Status: F Source: [facility] 7:55 AM [facility] REPOSITORY TYPE CODE TESTS RESULT OUT OF REFERENCE UNITS RANGE LAB UCRR 20-300 mg/dL 161.5 Creatinine,Ur ine,Ran LAB UALBR 0.0-23.0 mg/L <12.0 Albumin Urine Random LAB UALBCR 0-30 mg/g Not Albumin/Creat calculated Ratio Performed By: #### UACR #### [facility] [address] [place], [place] [address] Observed: 01/26/2018 Status: F Source: [facility] URINE CULTURE 7:55 AM [facility] REPOSITORY Sp. Request/Comment: - Specimen received in preservative Culture Result - 10,000 - <50,000 CFU/ml Lactose negative gram negative bacilli --> ABNORMAL ALERT Insignificant colony count. No further workup. --> ABNORMAL ALERT <10,000 CFU/ml Normal urogenital max Performed By: #### URCUL #### [facility] [address] [place], [place] [address] PROGRESS Observed: 01/17/2018 Status: COMPLETED Source: [facility] 1:54 PM [facility] REPOSITORY HNO ID: [id number] Author: Sanjay Gaspar (Pa-C) [place]roy Service: (none) Author Type: Physician Chemical Recovery Operator Type: Progress Notes Filed: 01/17/2018 1:59 PM Note Text: 58 year old female with c/o here for suture removal and post- op check 10 days. No complications HISTORIES FAMILY HISTORY Problem Relation Age of Onset - Hypertension Mother - Heart Mother concha stroke - Diabetes Mother - Stroke Mother Massive- - Arthritis Mother Osteoarthritis - Hypertension Father - COPD Father - Hypertension Sister 2 - Hypertension Brother 3 - Heart Brother triple bypass at 48 - Heart Maternal Aunt - Heart Maternal Uncle - Diabetes Brother 3 Brother's with diabetes - Diabetes Sister - Arthritis Sister - Arthritis Brother - Arthritis Brother - Arthritis Brother PAST MEDICAL HISTORY Diagnosis Date - Abnormal glandular Papanicolaou smear of cervix 05/30/05 ABNL GLANDULAR PAP SMEAR CERVIX - Acute gastritis without mention of hemorrhage - Anxiety state, unspecified - Arrhythmia - Chronic cholecystitis - Chronic obstructive pulmonary disease (COPD) ([facility]) - Congestive heart failure (HCC) 10/03/2011 - Diabetes ([facility]) - diabetes II 2010 - Diaphragmatic hernia without mention of obstruction or gangrene - Dysthymic disorder Depression (non-psychotic) - Esophageal reflux - Essential hypertension, benign - Generalized OA - Localized osteoarthrosis not specified whether primary or secondary, lower leg - Major depressive disorder, recurrent episode - Mucous polyp of cervix 07/19/05 - Other and unspecified anterior pituitary hyperfunction 10/13/05 elevated prolactin level-was normal in 2011 - PMH - PAST MEDICAL HISTORY OF sleep apnea - PMH - PAST MEDICAL HISTORY OF sleep apnea - SVT (supraventricular tachycardia) (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 Social History Main Topics Smoking status: Former Smoker Packs/day: 1.00 Years: 15.00 Types: Cigarettes Quit date: 12/20/1994 Smokeless tobacco: Never Used Alcohol use: No Drug use: No Sexual activity: No ACTIVE PROBLEM LIST Anxiety State Essential Hypertension, Benign ABNL GLANDULAR PAP SMEAR CERVIX HYPERPROLACTINEMIA Irregular Menstrual Cycle Esophageal Reflux Diaphragmatic Hernia Without Mention of Obstruction Or Gangrene Morbid Obesity (Hcc) Obstructive Sleep Apnea Svt (Supraventricular Tachycardia) (Hcc) Congestive Heart Failure (Hcc) Spondylolisthesis Lumbar Facet Arthropathy Ddd (Degenerative Disc Disease), Lumbar Ddd (Degenerative Disc Disease), Cervical Dm (Diabetes Mellitus) (Hcc) Pmb (Postmenopausal Bleeding) Dysthymia Major depressive disorder, recurrent episode, moderate (HCC) Pain Disorder With Psychological Factors Diffuse Myofascial Pain Syndrome Bilateral Primary Osteoarthritis of Knee Liver Disease Umbilical Hernia Without Obstruction and Without Gangrene Current Outpatient Prescriptions: nitrofurantoin monohydrate and macrocrystal (MACROBID) 100 mg capsule Take 1 capsule by mouth twice daily with meals for 7 days. Disp: 14 capsule Rfl: 0 nabumetone (RELAFEN) 500 mg tablet Take 1 tablet by mouth once daily. TAKE WITH FOOD Disp: 30 tablet Rfl: 2 cholecalciferol, Vitamin D3, (VITAMIN D3) 50,000 unit cap capsule Take 1 capsule by mouth once each week. Disp: Rfl: 0 furosemide (LASIX) 0.5 mg/mL syrg DAILY Disp: Rfl: baclofen (LIORESAL) 10 mg tablet take 1 tablet by mouth twice a day Disp: 60 tablet Rfl: 1 cholecalciferol, vitamin D3, 50,000 unit tab Take 1 tablet by mouth once each week for 8 doses. Disp: 4 tablet Rfl: 1 potassium chloride ER (K-DUR, KLOR-CON) 10 mEq tablet Take 1 tablet by mouth once daily. Disp: 60 tablet Rfl: 5 polyethylene glycol 3350 (MIRALAX, GLYCOLAX) 17 gram/dose powder Take 17 g by mouth once daily. Disp: 1 Bottle Rfl: 11 insulin glargine (BASAGLAR KWIKPEN U-100 INSULIN) 100 unit/mL (3 mL) inpn Inject 30 Units subcutaneously daily at bedtime. Disp: 3 Pen Rfl: 5 gabapentin (NEURONTIN) 300 mg capsule Take 1 capsule by mouth twice daily for 90 days. Disp: 60 capsule Rfl: 2 nystatin (MYCOSTATIN) cream Apply 1 application to affected area twice daily. Disp: 1 Tube Rfl: 1 linagliptin (TRADJENTA) 5 mg tab Take 1 tablet by mouth once daily. Disp: 90 tablet Rfl: 3 spironolactone (ALDACTONE) 25 mg tablet Take 1 tablet by mouth once daily. Disp: 90 tablet Rfl: 3 ranitidine (ZANTAC) 150 mg tablet Take 1 tablet by mouth twice daily. Disp: 180 tablet Rfl: 3 furosemide (LASIX) 20 mg tablet Take 1 tablet by mouth once daily. Disp: 90 tablet Rfl: 3 DULoxetine (CYMBALTA) 60 mg capsule Take 1 capsule by mouth once daily. Disp: 90 capsule Rfl: 3 primidone (MYSOLINE) 50 mg tablet TAKE ONE TABLET ONCE DAILY AT BEDTIME Disp: 30 tablet Rfl: 11 HYDROcodone-acetaminophen (NORCO) 5-325 mg per tablet TAKE ONE TABLET TWICE DAILY Disp: Rfl: traZODone (DESYREL) 50 mg tablet Take 0.5 tablets by mouth daily at bedtime. Disp: 30 tablet Rfl: 5 ARIPiprazole (ABILIFY) 10 mg tablet Take 1 tablet by mouth once daily. Disp: 30 tablet Rfl: 5 nitroglycerin sublingual (NITROQUICK) 0.4 mg SL tablet Dissolve 1 tablet under the tongue as needed. FOR CHEST PAIN. IF NO RELIEF CALL 911 Disp: 25 tablet Rfl: 6 aspirin, enteric coated (ECOTRIN LOW STRENGTH) 81 mg EC tablet Take 1 tablet by mouth once daily. Disp: Rfl: 0 blood sugar diagnostic (BLOOD GLUCOSE TEST) test strip Test blood sugars up to 4 times daily as directed. Dx: Type 2 DM - Controlled E11.9 Insulin: No Disp: 100 Strip Rfl: 11 Blood-Glucose Meter monitoring kit Glucose Meter of Choice - Kit - Dx: Type 2 DM - Controlled E11.9 Use twice daily as directed Disp: 1 Each Rfl: 0 Insulin [place], Disposable, (BD ULTRA-FINE MADI PEN NEEDLE) 32 gauge x 5/32 ndle Use one needle for each dose. 1/day. Disp: 100 Each Rfl: 11 lancets (TRUEPLUS LANCETS) 30 gauge misc Test twice daily Dx: 250.02 Disp: 200 Each Rfl: 4 No current facility-administered medications for this visit. FAMILIA/ARB MED PRESCRIBED due on 01/14/1978 DTAP,TDAP,TD(1 - Tdap) due on 02/08/2007 MAMMOGRAM due on 11/16/2016 EXAM: BP 110/82 Temp 36.6 ?C (97.9 ?F) (Tympanic) LMP 12/11/2008 Pleasant obese adult woman in no acute distress. Alert and oriented all spheres. Normal affect and cognition. Speech normal. No deficits to learning or comprehension. Skin warm, dry, pink to lips and nailbeds. Normal turgor. Respirations regular and unlabored. Extrem: no clubbing, cyanosis, edema. Extremities are warm and pink with prompt capillary refill. 2 sutures removed. Well healed. Scabbed in center. No erythema Assessment: Post-op check: doing well Plan: F/u prn See orders and/or patient instructions. Patient ( or Guardian) expressed understanding of instructions on review. CARLOS SanzOV Observed: 01/17/2018 Status: COMPLETED Source: [facility] 1:20 PM [facility] REPOSITORY Office Visit (FAMPWS) KATHLEEN KHAN V ([id number]) 1960 F Date Time Provider Department 01/17/18 1:20 PM Sanjay ABBASI) [facility] During your visit today, we recorded the following information about you: Temperature Blood pressure 97.9 degrees 110/82 Sanjay Abbasi PA-C 01/17/2018 1:59 PM Signed 58 year old female with c/o here for suture removal and post- op check 10 days. No complications HISTORIES FAMILY HISTORY Problem Relation Age of Onset - Hypertension Mother - Heart Mother concha stroke - Diabetes Mother - Stroke Mother Massive- - Arthritis Mother Osteoarthritis - Hypertension Father - COPD Father - Hypertension Sister 2 - Hypertension Brother 3 - Heart Brother triple bypass at 48 - Heart Maternal Aunt - Heart Maternal Uncle - Diabetes Brother 3 Brother's with diabetes - Diabetes Sister - Arthritis Sister - Arthritis Brother - Arthritis Brother - Arthritis Brother PAST MEDICAL HISTORY Diagnosis Date - Abnormal glandular Papanicolaou smear of cervix 05/30/05 ABNL GLANDULAR PAP SMEAR CERVIX - Acute gastritis without mention of hemorrhage - Anxiety state, unspecified - Arrhythmia - Chronic cholecystitis - Chronic obstructive pulmonary disease (COPD) ([facility]) - Congestive heart failure (HCC) 10/03/2011 - Diabetes ([facility]) - diabetes II 2010 - Diaphragmatic hernia without mention of obstruction or gangrene - Dysthymic disorder Depression (non-psychotic) - Esophageal reflux - Essential hypertension, benign - Generalized OA - Localized osteoarthrosis not specified whether primary or secondary, lower leg - Major depressive disorder, recurrent episode - Mucous polyp of cervix 07/19/05 - Other and unspecified anterior pituitary hyperfunction 10/13/05 elevated prolactin level-was normal in 2012 - PMH - PAST MEDICAL HISTORY OF sleep apnea - PMH - PAST MEDICAL HISTORY OF sleep apnea - SVT (supraventricular tachycardia) (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 Social History Main Topics Smoking status: Former Smoker Packs/day: 1.00 Years: 15.00 Types: Cigarettes Quit date: 12/20/1994 Smokeless tobacco: Never Used Alcohol use: No Drug use: No Sexual activity: No ACTIVE PROBLEM LIST Anxiety State Essential Hypertension, Benign ABNL GLANDULAR PAP SMEAR CERVIX HYPERPROLACTINEMIA Irregular Menstrual Cycle Esophageal Reflux Diaphragmatic Hernia Without Mention of Obstruction Or Gangrene Morbid Obesity (Hcc) Obstructive Sleep Apnea Svt (Supraventricular Tachycardia) (Hcc) Congestive Heart Failure (Hcc) Spondylolisthesis Lumbar Facet Arthropathy Ddd (Degenerative Disc Disease), Lumbar Ddd (Degenerative Disc Disease), Cervical Dm (Diabetes Mellitus) (Hcc) Pmb (Postmenopausal Bleeding) Dysthymia Major depressive disorder, recurrent episode, moderate (HCC) Pain Disorder With Psychological Factors Diffuse Myofascial Pain Syndrome Bilateral Primary Osteoarthritis of Knee Liver Disease Umbilical Hernia Without Obstruction and Without Gangrene Current Outpatient Prescriptions: nitrofurantoin monohydrate and macrocrystal (MACROBID) 100 mg capsule Take 1 capsule by mouth twice daily with meals for 7 days. Disp: 14 capsule Rfl: 0 nabumetone (RELAFEN) 500 mg tablet Take 1 tablet by mouth once daily. TAKE WITH FOOD Disp: 30 tablet Rfl: 2 cholecalciferol, Vitamin D3, (VITAMIN D3) 50,000 unit cap capsule Take 1 capsule by mouth once each week. Disp: Rfl: 0 furosemide (LASIX) 0.5 mg/mL syrg DAILY Disp: Rfl: baclofen (LIORESAL) 10 mg tablet take 1 tablet by mouth twice a day Disp: 60 tablet Rfl: 1 cholecalciferol, vitamin D3, 50,000 unit tab Take 1 tablet by mouth once each week for 8 doses. Disp: 4 tablet Rfl: 1 potassium chloride ER (K-DUR, KLOR-CON) 10 mEq tablet Take 1 tablet by mouth once daily. Disp: 60 tablet Rfl: 5 polyethylene glycol 3350 (MIRALAX, GLYCOLAX) 17 gram/dose powder Take 17 g by mouth once daily. Disp: 1 Bottle Rfl: 11 insulin glargine (BASAGLAR KWIKPEN U-100 INSULIN) 100 unit/mL (3 mL) inpn Inject 30 Units subcutaneously daily at bedtime. Disp: 3 Pen Rfl: 5 gabapentin (NEURONTIN) 300 mg capsule Take 1 capsule by mouth twice daily for 90 days. Disp: 60 capsule Rfl: 2 nystatin (MYCOSTATIN) cream Apply 1 application to affected area twice daily. Disp: 1 Tube Rfl: 1 linagliptin (TRADJENTA) 5 mg tab Take 1 tablet by mouth once daily. Disp: 90 tablet Rfl: 3 spironolactone (ALDACTONE) 25 mg tablet Take 1 tablet by mouth once daily. Disp: 90 tablet Rfl: 3 ranitidine (ZANTAC) 150 mg tablet Take 1 tablet by mouth twice daily. Disp: 180 tablet Rfl: 3 furosemide (LASIX) 20 mg tablet Take 1 tablet by mouth once daily. Disp: 90 tablet Rfl: 3 DULoxetine (CYMBALTA) 60 mg capsule Take 1 capsule by mouth once daily. Disp: 90 capsule Rfl: 3 primidone (MYSOLINE) 50 mg tablet TAKE ONE TABLET ONCE DAILY AT BEDTIME Disp: 30 tablet Rfl: 11 HYDROcodone-acetaminophen (NORCO) 5-325 mg per tablet TAKE ONE TABLET TWICE DAILY Disp: Rfl: traZODone (DESYREL) 50 mg tablet Take 0.5 tablets by mouth daily at bedtime. Disp: 30 tablet Rfl: 5 ARIPiprazole (ABILIFY) 10 mg tablet Take 1 tablet by mouth once daily. Disp: 30 tablet Rfl: 5 nitroglycerin sublingual (NITROQUICK) 0.4 mg SL tablet Dissolve 1 tablet under the tongue as needed. FOR CHEST PAIN. IF NO RELIEF CALL 911 Disp: 25 tablet Rfl: 6 aspirin, enteric coated (ECOTRIN LOW STRENGTH) 81 mg EC tablet Take 1 tablet by mouth once daily. Disp: Rfl: 0 blood sugar diagnostic (BLOOD GLUCOSE TEST) test strip Test blood sugars up to 4 times daily as directed. Dx: Type 2 DM - Controlled E11.9 Insulin: No Disp: 100 Strip Rfl: 11 Blood-Glucose Meter monitoring kit Glucose Meter of Choice - Kit - Dx: Type 2 DM - Controlled E11.9 Use twice daily as directed Disp: 1 Each Rfl: 0 Insulin [place], Disposable, (BD ULTRA-FINE MADI PEN NEEDLE) 32 gauge x /32 ndle Use one needle for each dose. 1/day. Disp: 100 Each Rfl: 11 lancets (TRUEPLUS LANCETS) 30 gauge misc Test twice daily Dx: 250.02 Disp: 200 Each Rfl: 4 No current facility-administered medications for this visit. FAMILIA/ARB MED PRESCRIBED due on 01/14/1978 DTAP,TDAP,TD(1 - Tdap) due on 02/08/2007 MAMMOGRAM due on 11/16/2016 EXAM: BP 110/82 Temp 36.6 ?C (97.9 ?F) (Tympanic) LMP 12/11/2008 Pleasant obese adult woman in no acute distress. Alert and oriented all spheres. Normal affect and cognition. Speech normal. No deficits to learning or comprehension. Skin warm, dry, pink to lips and nailbeds. Normal turgor. Respirations regular and unlabored. Extrem: no clubbing, cyanosis, edema. Extremities are warm and pink with prompt capillary refill. 2 sutures removed. Well healed. Scabbed in center. No erythema Assessment: Post-op check: doing well Plan: F/u prn See orders and/or patient instructions. Patient ( or Guardian) expressed understanding of instructions on review. M Angeline Abbasi PA-C Referring Provider: SELF [[id number]] Allergies As of Date: 01/17/2018 Noted Allergy Reaction LYRICA (PREGABALIN) 08/05/2012 10 - Anaphylaxis Comments: Not sure if accurate. Can take gabapentin. Patient is unsure of reaction. ACCUPRIL (QUINAPRIL HCL) 08/12/2005 5 - Intolerance Comments: dizziness AMLODIPINE 04/24/2008 7 - Swelling Comments: Leg edema ATENOLOL 09/29/2010 7 - Swelling ATORVASTATIN 11/01/2017 5 - Intolerance Comments: Muscle cramps and weakness EFFEXOR (VENLAFAXINE HCL) 09/22/2005 Comments: swelling high blood pressure JANUVIA (SITAGLIPTIN) 09/21/2011 8 - GI Upset 14 - Other: See Comments Comments: Patient states she couldn't eat METOPROLOL 09/21/2009 7 - Swelling MOBIC (MELOXICAM) 08/12/2005 8 - GI Upset PROZAC (FLUOXETINE HCL) 08/12/2005 5 - Intolerance Comments: tremor RISPERIDONE 12/22/2009 1 - Mental Status Change SEROQUEL (QUETIAPINE FUMARATE) 10/05/2006 Comments: hypertension,swelling VANCOMYCIN 08/10/2017 9 - Itching 14 - Other: See Comments Comments: red all over VIOXX (ROFECOXIB) 08/12/2005 8 - GI Upset WELLBUTRIN (BUPROPION HCL) 08/12/2005 5 - Intolerance Comments: nightmares Date Reviewed: 01/17/2018 Reviewed by: Kate Brunner LPN - Fully Assessed Reason for Visit: Suture Removal [105] Cmt: left buttocks Primary Visit Diagnosis:Visit for suture removal [Z48.02] Prescriptions as of 01/17/2018 Sig: NITROFURANTOIN MONOHYDRATE AND * Take 1 capsule by mouth twice* NABUMETONE 500 MG TABLET Take 1 tablet by mouth once d* CHOLECALCIFEROL (VITAMIN D3) * Take 1 capsule by mouth once * FUROSEMIDE 0.5 MG/ML PEDIATRI* DAILY BACLOFEN 10 MG TABLET take 1 tablet by mouth twice * CHOLECALCIFEROL (VITAMIN D3) * Take 1 tablet by mouth once e* POTASSIUM CHLORIDE ER 10 MEQ * Take 1 tablet by mouth once d* POLYETHYLENE GLYCOL 3350 17 G* Take 17 g by mouth once daily. INSULIN GLARGINE (U-100) 100 * Inject 30 Units subcutaneousl* GABAPENTIN 300 MG CAPSULE Take 1 capsule by mouth twice* NYSTATIN 100,000 UNIT/GRAM TO* Apply 1 application to affect* LINAGLIPTIN 5 MG TABLET Take 1 tablet by mouth once d* SPIRONOLACTONE 25 MG TABLET Take 1 tablet by mouth once d* RANITIDINE 150 MG TABLET Take 1 tablet by mouth twice * FUROSEMIDE 20 MG TABLET Take 1 tablet by mouth once d* DULOXETINE 60 MG CAPSULE,JODI* Take 1 capsule by mouth once * PRIMIDONE 50 MG TABLET TAKE ONE TABLET ONCE DAILY AT* HYDROCODONE 5 MG-ACETAMINOPHE* TAKE ONE TABLET TWICE DAILY TRAZODONE 50 MG TABLET Take 0.5 tablets by mouth padmini* ARIPIPRAZOLE 10 MG TABLET Take 1 tablet by mouth once d* NITROGLYCERIN 0.4 MG SUBLINGU* Dissolve 1 tablet under the t* ASPIRIN 81 MG TABLET,DELAYED * Take 1 tablet by mouth once d* BLOOD SUGAR DIAGNOSTIC STRIPS Test blood sugars up to 4 tiara* BLOOD-GLUCOSE METER KIT Glucose Meter of Choice - Kit* PEN NEEDLE, DIABETIC 32 GAUGE* Use one needle for each dose.* LANCETS 30 GAUGE Test twice daily Dx: 250.02 Problem List As Of Date 01/17/2018 Noted Resolved Major depressive disorder, recurrent episode, u*INVALID FOR*11/24/2014 More... Anxiety state [F41.1] INVALID FOR* BENIGN HYPERTENSION [I10] INVALID FOR* OSTEOARTHROS NOS-UNSPEC [M19.90] INVALID FOR*02/07/2007 ABNL GLANDULAR PAP SMEAR CERVIX [R87.619] INVALID FOR* HYPERPROLACTINEMIA [E22.9] INVALID FOR* IRREGULAR MENSTRUATION [N92.6] INVALID FOR* ESOPHAGEAL REFLUX [K21.9] INVALID FOR* ACUTE GASTRITIS W/O HEMORRHAGE [K29.00] INVALID FOR*02/07/2007 DIAPHRAGMATIC HERNIA [K44.9] INVALID FOR* Unspecified gastritis and gastroduodenitis with*INVALID FOR*07/24/2016 Localized osteoarthrosis not specified whether *INVALID FOR*07/24/2016 More... Pain in joint, site unspecified [M25.50] INVALID FOR*07/24/2016 Routine general medical examination at a health*INVALID FOR*11/29/2011 Class: Chronic More... Routine gynecological examination [Z01.419] INVALID FOR*11/29/2011 Class: Chronic More... More... Morbid obesity [E66.01] INVALID FOR* Hyperprolactinemia [E22.1] INVALID FOR*01/30/2012 Obstructive sleep apnea [G47.33] INVALID FOR* More... Medication side effects [T88.7XXA] INVALID FOR*08/10/2017 SVT (supraventricular tachycardia) [I47.1] Type II or unspecified type diabetes mellitus w*INVALID FOR*04/10/2012 More... Congestive heart failure [I50.9] INVALID FOR* Spondylolisthesis [M43.10] INVALID FOR* Lumbar facet arthropathy [M47.816] INVALID FOR* DDD (degenerative disc disease), lumbar [M51.36]INVALID FOR* Diabetes mellitus [E11.9] INVALID FOR*11/24/2014 DDD (degenerative disc disease), cervical [M50.*INVALID FOR* DM (diabetes mellitus) (HCC) [E11.9] INVALID FOR* PMB (postmenopausal bleeding) [N95.0] INVALID FOR* Dysthymia [F34.1] INVALID FOR* Major depressive disorder, recurrent episode, m*INVALID FOR* More... Pain disorder with psychological factors [F45.4*INVALID FOR* Diffuse myofascial pain syndrome [M79.18] INVALID FOR* Bilateral primary osteoarthritis of knee [M17.0]INVALID FOR* Obesity, Class III, BMI >= 40 [E66.01] INVALID FOR*10/20/2017 Liver disease [K76.9] INVALID FOR* More... Umbilical hernia without obstruction and withou*INVALID FOR* More... Encounter Status:Closed by Sanjay ABBASI PA-C on 01/17/18 CNCNPATED Observed: 01/16/2018 Status: COMPLETED Source: [facility] 3:00 PM [facility] REPOSITORY Education (GENI) KATHLEEN KHAN V ([id number]) 1960 F Date Time Provider Department 01/16/18 3:00 PM DAIJA SEALS ([place]) [facility] Reason for Visit: Patient Education [91] Reassessment [674] Progress Notes: Daija Seals RD 01/16/2018 3:24 PM Signed Nutritional Therapy Re-Assessment PAIN: Is the patient having any pain that is interfering with oral / enteral intake? No 0 on a scale of 0 to 10 PROGRESS: Nutrition Intervention (date of last encounter 12/13/17): 1. Read Nutritional Guidelines Section of Your Guide to Surgery by next session -met 2. Begin 5888-3382 calorie partial liquid diet (refer to handout) Breakfast: protein shake (200-250 calories, 15+ grams protein) plus 1 piece of fruit Lunch: protein shake (200-250 calories, 15+ grams protein) plus 1 piece of fruit Dinner: 4-5 ounces lean protein, 1 cup starch (bread/pasta/potatoes/corn/peas), unlimited non starchy vegetables 1 snack (< 150 calories) should contain protein -met 3. Physical activity: continue with walking and arm exercises; try to increase from 15 minutes to 25-30, can be divided into 2- 15 minute sessions -partially met 4. Drink 64 ounces per day water. Fluids should follow these guidelines: No carbonation, no caffeine, no calories, no alcohol. -met CHANGES IN TREATMENT: Patient met goal(s): Yes Actions to implement interventions: Diet History: Breakfast - Protein Shake (Slim Fast) and fruit Snack - none Lunch - Protein Shake and fruit and sometimes with vegetables Snack - boiled egg with 2tsp gold and triscuits Dinner - 4 oz chicken with fruit and vegetables Snack - none Beverages - water with flavor enhancer (64 oz+), decaf hot tea with sweetener Vitamins/Supplements - VitD Exercise - walking daily CLINICAL IMPRESSIONS: good REVISIONS IN DIAGNOSIS: Diagnosis: has not changed. Allergies: Lyrica [Pregabalin]; Accupril [Quinapril Hcl]; Amlodipine; Atenolol; Atorvastatin; Effexor [Venlafaxine Hcl]; Januvia [Sitagliptin]; Metoprolol; Mobic [Meloxicam]; Prozac [Fluoxetine Hcl]; Risperidone; Seroquel [Quetiapine Fumarate]; Vancomycin; Vioxx [Rofecoxib]; Wellbutrin [Bupropion Hcl] Medications: Current Outpatient Prescriptions: nitrofurantoin monohydrate and macrocrystal (MACROBID) 100 mg capsule Take 1 capsule by mouth twice daily with meals for 7 days. Disp: 14 capsule Rfl: 0 nabumetone (RELAFEN) 500 mg tablet Take 1 tablet by mouth once daily. TAKE WITH FOOD Disp: 30 tablet Rfl: 2 cholecalciferol, Vitamin D3, (VITAMIN D3) 50,000 unit cap capsule Take 1 capsule by mouth once each week. Disp: Rfl: 0 furosemide (LASIX) 0.5 mg/mL syrg DAILY Disp: Rfl: baclofen (LIORESAL) 10 mg tablet take 1 tablet by mouth twice a day Disp: 60 tablet Rfl: 1 blood sugar diagnostic (BLOOD GLUCOSE TEST) test strip Test blood sugars up to 4 times daily as directed. Dx: Type 2 DM - Controlled E11.9 Insulin: No Disp: 100 Strip Rfl: 11 cholecalciferol, vitamin D3, 50,000 unit tab Take 1 tablet by mouth once each week for 8 doses. Disp: 4 tablet Rfl: 1 potassium chloride ER (K-DUR, KLOR-CON) 10 mEq tablet Take 1 tablet by mouth once daily. Disp: 60 tablet Rfl: 5 polyethylene glycol 3350 (MIRALAX, GLYCOLAX) 17 gram/dose powder Take 17 g by mouth once daily. Disp: 1 Bottle Rfl: 11 insulin glargine (BASAGLAR KWIKPEN U-100 INSULIN) 100 unit/mL (3 mL) inpn Inject 30 Units subcutaneously daily at bedtime. Disp: 3 Pen Rfl: 5 gabapentin (NEURONTIN) 300 mg capsule Take 1 capsule by mouth twice daily for 90 days. Disp: 60 capsule Rfl: 2 Blood-Glucose Meter monitoring kit Glucose Meter of Choice - Kit - Dx: Type 2 DM - Controlled E11.9 Use twice daily as directed Disp: 1 Each Rfl: 0 nystatin (MYCOSTATIN) cream Apply 1 application to affected area twice daily. Disp: 1 Tube Rfl: 1 linagliptin (TRADJENTA) 5 mg tab Take 1 tablet by mouth once daily. Disp: 90 tablet Rfl: 3 spironolactone (ALDACTONE) 25 mg tablet Take 1 tablet by mouth once daily. Disp: 90 tablet Rfl: 3 ranitidine (ZANTAC) 150 mg tablet Take 1 tablet by mouth twice daily. Disp: 180 tablet Rfl: 3 furosemide (LASIX) 20 mg tablet Take 1 tablet by mouth once daily. Disp: 90 tablet Rfl: 3 DULoxetine (CYMBALTA) 60 mg capsule Take 1 capsule by mouth once daily. Disp: 90 capsule Rfl: 3 primidone (MYSOLINE) 50 mg tablet TAKE ONE TABLET ONCE DAILY AT BEDTIME Disp: 30 tablet Rfl: 11 Insulin Hamlin, Disposable, (BD ULTRA-FINE MADI PEN NEEDLE) 32 gauge x 5/32 ndle Use one needle for each dose. 1/day. Disp: 100 Each Rfl: 11 HYDROcodone-acetaminophen (NORCO) 5-325 mg per tablet TAKE ONE TABLET TWICE DAILY Disp: Rfl: lancets (TRUEPLUS LANCETS) 30 gauge misc Test twice daily Dx: 250.02 Disp: 200 Each Rfl: 4 traZODone (DESYREL) 50 mg tablet Take 0.5 tablets by mouth daily at bedtime. Disp: 30 tablet Rfl: 5 ARIPiprazole (ABILIFY) 10 mg tablet Take 1 tablet by mouth once daily. Disp: 30 tablet Rfl: 5 nitroglycerin sublingual (NITROQUICK) 0.4 mg SL tablet Dissolve 1 tablet under the tongue as needed. FOR CHEST PAIN. IF NO RELIEF CALL 911 Disp: 25 tablet Rfl: 6 aspirin, enteric coated (ECOTRIN LOW STRENGTH) 81 mg EC tablet Take 1 tablet by mouth once daily. Disp: Rfl: 0 No current facility-administered medications for this visit. (currently taking) Anthropometrics: Height: Last 1 Encounter Ht Readings: Date: Ht: 01/09/2018 151.6 cm (4' 11.7) Current weight: Last 1 Encounter Wt Readings: Date: Wt: 01/09/2018 167.2 kg (368 lb 9.6 oz) Body mass index is 67.88 kg/m?. Resting Metabolic Rate: 2171 NUTRITION ASSESSMENT: Malnutrition Screening Significant unintentional weight loss? No Eating less than 75% of usual intake for more than 2 weeks? No Potential Signs of Inflammation: no identifiable sources RECOMMENDED MALNUTRITION DIAGNOSIS: NO MALNUTRITION IDENTIFIED Nutritional status: Educational materials provided: none this visit READINESS TO LEARN Cognitive ability: Alert and oriented Motivation to learn: Interested Family support: Unable to assess - Family not present Instruction provided to: Patient Patient learns best by: Multiple Methods Factors affecting learning: None Physical limitations affecting learning: None Likelihood of Adherence: High Patient presents in preparation for weight loss surgery, LSG. Since last assessment Patient has lost 29 pounds. Diet recall reveals adherence to partial liquid plan with appropriate use of protein shake as meal replacement. Meals are well-balanced and in proper portion sizes. Snacks are also appropriate. Fluids meeting recommendations in type and amount. Physical activity is increasing daily. No new labs since last assessment. Patient does meet National Institutes Health guidelines for weight loss surgery, however needs to demonstrate consistent effort in making dietary changes before being cleared for surgery. It is anticipated that the patient will need at least 1-2 nutritional follow-up visits prior to clearance for surgery. Today is visit #2. Nutrition Diagnosis: Overweight Obesity, related to; food/nutrition - related knowledge deficit, as evidenced by BMI above normative standard for age and gender. Nutrition Intervention 01/16/2018: Modify type and amount of food and beverage 1. Continue the partial liquid protein plan Breakfast: Protein shake and fruit Lunch: Protein shake and fruit Dinner: 4 oz lean meat/fish, vegetables, fruit and up to 1c starch/whole grains Snack: < 150 calories 1x per day (should contain protein) 2. Fluids: At least 64 oz per day no carbonation, no caffeine, no calories 3. Continue to take your Vitamin D 4. Exercise: Minimum 150 minutes per week Pre-Op Goal Weight: 330 pounds, per Dr. Slater Nutrition Monitoring AND Evaluation: 1-2 pounds weight loss per week Criteria: patient update and weight check Need for Follow up: 1 month Referred/Supervised by: Nohemy/Cetin MNT Billing Type: Re-assess/15 min 2 units SIGNATURE: Daija Seals RD PATIENT NAME: Kathleen Khan DATE: January 16, 2018 TIME: 7:31 AM PAGER: [phone] Primary Visit Diagnosis:Type 2 diabetes mellitus without complication, unspecified whether computer terminal operator insulin use (HCC) [E11.9] Other Visit Diagnoses:Class 3 severe obesity with serious comorbidity and body mass index (BMI) of 60.0 to 69.9 in adult, unspecified obesity type (HCC) [E66.01, Z68.44] Dietary counseling and surveillance [Z71.3] During your visit today, we recorded the following information about you: Weight Height 163.3 kg 1.551 m Allergies As of Date: 01/16/2018 Noted Allergy Reaction LYRICA (PREGABALIN) 08/05/2012 10 - Anaphylaxis Comments: Not sure if accurate. Can take gabapentin. Patient is unsure of reaction. ACCUPRIL (QUINAPRIL HCL) 08/12/2005 5 - Intolerance Comments: dizziness AMLODIPINE 04/24/2008 7 - Swelling Comments: Leg edema ATENOLOL 09/29/2010 7 - Swelling ATORVASTATIN 11/01/2017 5 - Intolerance Comments: Muscle cramps and weakness EFFEXOR (VENLAFAXINE HCL) 09/22/2005 Comments: swelling high blood pressure JANUVIA (SITAGLIPTIN) 09/21/2011 8 - GI Upset 14 - Other: See Comments Comments: Patient states she couldn't eat METOPROLOL 09/21/2009 7 - Swelling MOBIC (MELOXICAM) 08/12/2005 8 - GI Upset PROZAC (FLUOXETINE HCL) 08/12/2005 5 - Intolerance Comments: tremor RISPERIDONE 12/22/2009 1 - Mental Status Change SEROQUEL (QUETIAPINE FUMARATE) 10/05/2006 Comments: hypertension,swelling VANCOMYCIN 08/10/2017 9 - Itching 14 - Other: See Comments Comments: red all over VIOXX (ROFECOXIB) 08/12/2005 8 - GI Upset WELLBUTRIN (BUPROPION HCL) 08/12/2005 5 - Intolerance Comments: nightmares Date Reviewed: 01/16/2018 Reviewed by: Daija Seals - Fully Assessed Prescriptions as of 01/16/2018 Sig: NITROFURANTOIN MONOHYDRATE AND * Take 1 capsule by mouth twice* NABUMETONE 500 MG TABLET Take 1 tablet by mouth once d* CHOLECALCIFEROL (VITAMIN D3) * Take 1 capsule by mouth once * FUROSEMIDE 0.5 MG/ML PEDIATRI* DAILY BACLOFEN 10 MG TABLET take 1 tablet by mouth twice * BLOOD SUGAR DIAGNOSTIC STRIPS Test blood sugars up to 4 tiara* CHOLECALCIFEROL (VITAMIN D3) * Take 1 tablet by mouth once e* POTASSIUM CHLORIDE ER 10 MEQ * Take 1 tablet by mouth once d* POLYETHYLENE GLYCOL 3350 17 G* Take 17 g by mouth once daily. INSULIN GLARGINE (U-100) 100 * Inject 30 Units subcutaneousl* GABAPENTIN 300 MG CAPSULE Take 1 capsule by mouth twice* BLOOD-GLUCOSE METER KIT Glucose Meter of Choice - Kit* NYSTATIN 100,000 UNIT/GRAM TO* Apply 1 application to affect* LINAGLIPTIN 5 MG TABLET Take 1 tablet by mouth once d* SPIRONOLACTONE 25 MG TABLET Take 1 tablet by mouth once d* RANITIDINE 150 MG TABLET Take 1 tablet by mouth twice * FUROSEMIDE 20 MG TABLET Take 1 tablet by mouth once d* DULOXETINE 60 MG CAPSULE,JODI* Take 1 capsule by mouth once * PRIMIDONE 50 MG TABLET TAKE ONE TABLET ONCE DAILY AT* PEN NEEDLE, DIABETIC 32 GAUGE* Use one needle for each dose.* HYDROCODONE 5 MG-ACETAMINOPHE* TAKE ONE TABLET TWICE DAILY LANCETS 30 GAUGE Test twice daily Dx: 250.02 TRAZODONE 50 MG TABLET Take 0.5 tablets by mouth padmini* ARIPIPRAZOLE 10 MG TABLET Take 1 tablet by mouth once d* NITROGLYCERIN 0.4 MG SUBLINGU* Dissolve 1 tablet under the t* ASPIRIN 81 MG TABLET,DELAYED * Take 1 tablet by mouth once d* Letter Text [facility] [place] [address] [place], [place] [address] January 16, 2018 Kathleen Khan [address] [facility] [id number] [facility] Nutrition Intervention 01/16/2018: Modify type and amount of food and beverage 1. Continue the partial liquid protein plan Breakfast: Protein shake and fruit Lunch: Protein shake and fruit Dinner: 4 oz lean meat/fish, vegetables, fruit and up to 1c starch/whole grains Snack: < 150 calories 1x per day (should contain protein) 2. Fluids: At least 64 oz per day no carbonation, no caffeine, no calories 3. Continue to take your Vitamin D 4. Exercise: Minimum 150 minutes per week Pre-Op Goal Weight: 330 pounds, per Dr. Slater Nutrition Monitoring AND Evaluation: 1-2 pounds weight loss per week Criteria: patient update and weight check Need for Follow up: [address] Encounter Status:Closed by DAIJA SEALS on 01/16/18 PROGRESS Observed: 01/16/2018 Status: COMPLETED Source: [facility] 7:31 AM [facility] [place] REPOSITORY HNO ID: [id number] Author: Daija Richardson) [place] Service: (none) Author Type: Registered Dietitian Type: Progress Notes Filed: 01/16/2018 3:24 PM Note Text: Nutritional Therapy Re-Assessment PAIN: Is the patient having any pain that is interfering with oral / enteral intake? No 0 on a scale of 0 to 10 PROGRESS: Nutrition Intervention (date of last encounter 12/13/17): 1. Read Nutritional Guidelines Section of Your Guide to Surgery by next session -met 2. Begin 3872-9909 calorie partial liquid diet (refer to handout) Breakfast: protein shake (200-250 calories, 15+ grams protein) plus 1 piece of fruit Lunch: protein shake (200-250 calories, 15+ grams protein) plus 1 piece of fruit Dinner: 4-5 ounces lean protein, 1 cup starch (bread/pasta/potatoes/corn/peas), unlimited non starchy vegetables 1 snack (< 150 calories) should contain protein -met 3. Physical activity: continue with walking and arm exercises; try to increase from 15 minutes to 25-30, can be divided into 2- 15 minute sessions -partially met 4. Drink 64 ounces per day water. Fluids should follow these guidelines: No carbonation, no caffeine, no calories, no alcohol. -met CHANGES IN TREATMENT: Patient met goal(s): Yes Actions to implement interventions: Diet History: Breakfast - Protein Shake (Slim Fast) and fruit Snack - none Lunch - Protein Shake and fruit and sometimes with vegetables Snack - boiled egg with 2tsp gold and triscuits Dinner - 4 oz chicken with fruit and vegetables Snack - none Beverages - water with flavor enhancer (64 oz+), decaf hot tea with sweetener Vitamins/Supplements - VitD Exercise - walking daily CLINICAL IMPRESSIONS: good REVISIONS IN DIAGNOSIS: Diagnosis: has not changed. Allergies: Lyrica [Pregabalin]; Accupril [Quinapril Hcl]; Amlodipine; Atenolol; Atorvastatin; Effexor [Venlafaxine Hcl]; Januvia [Sitagliptin]; Metoprolol; Mobic [Meloxicam]; Prozac [Fluoxetine Hcl]; Risperidone; Seroquel [Quetiapine Fumarate]; Vancomycin; Vioxx [Rofecoxib]; Wellbutrin [Bupropion Hcl] Medications: Current Outpatient Prescriptions: nitrofurantoin monohydrate and macrocrystal (MACROBID) 100 mg capsule Take 1 capsule by mouth twice daily with meals for 7 days. Disp: 14 capsule Rfl: 0 nabumetone (RELAFEN) 500 mg tablet Take 1 tablet by mouth once daily. TAKE WITH FOOD Disp: 30 tablet Rfl: 2 cholecalciferol, Vitamin D3, (VITAMIN D3) 50,000 unit cap capsule Take 1 capsule by mouth once each week. Disp: Rfl: 0 furosemide (LASIX) 0.5 mg/mL syrg DAILY Disp: Rfl: baclofen (LIORESAL) 10 mg tablet take 1 tablet by mouth twice a day Disp: 60 tablet Rfl: 1 blood sugar diagnostic (BLOOD GLUCOSE TEST) test strip Test blood sugars up to 4 times daily as directed. Dx: Type 2 DM - Controlled E11.9 Insulin: No Disp: 100 Strip Rfl: 11 cholecalciferol, vitamin D3, 50,000 unit tab Take 1 tablet by mouth once each week for 8 doses. Disp: 4 tablet Rfl: 1 potassium chloride ER (K-DUR, KLOR-CON) 10 mEq tablet Take 1 tablet by mouth once daily. Disp: 60 tablet Rfl: 5 polyethylene glycol 3350 (MIRALAX, GLYCOLAX) 17 gram/dose powder Take 17 g by mouth once daily. Disp: 1 Bottle Rfl: 11 insulin glargine (BASAGLAR KWIKPEN U-100 INSULIN) 100 unit/mL (3 mL) inpn Inject 30 Units subcutaneously daily at bedtime. Disp: 3 Pen Rfl: 5 gabapentin (NEURONTIN) 300 mg capsule Take 1 capsule by mouth twice daily for 90 days. Disp: 60 capsule Rfl: 2 Blood-Glucose Meter monitoring kit Glucose Meter of Choice - Kit - Dx: Type 2 DM - Controlled E11.9 Use twice daily as directed Disp: 1 Each Rfl: 0 nystatin (MYCOSTATIN) cream Apply 1 application to affected area twice daily. Disp: 1 Tube Rfl: 1 linagliptin (TRADJENTA) 5 mg tab Take 1 tablet by mouth once daily. Disp: 90 tablet Rfl: 3 spironolactone (ALDACTONE) 25 mg tablet Take 1 tablet by mouth once daily. Disp: 90 tablet Rfl: 3 ranitidine (ZANTAC) 150 mg tablet Take 1 tablet by mouth twice daily. Disp: 180 tablet Rfl: 3 furosemide (LASIX) 20 mg tablet Take 1 tablet by mouth once daily. Disp: 90 tablet Rfl: 3 DULoxetine (CYMBALTA) 60 mg capsule Take 1 capsule by mouth once daily. Disp: 90 capsule Rfl: 3 primidone (MYSOLINE) 50 mg tablet TAKE ONE TABLET ONCE DAILY AT BEDTIME Disp: 30 tablet Rfl: 11 Insulin Hamlin, Disposable, (BD ULTRA-FINE MADI PEN NEEDLE) 32 gauge x 5/32 ndle Use one needle for each dose. 1/day. Disp: 100 Each Rfl: 11 HYDROcodone-acetaminophen (NORCO) 5-325 mg per tablet TAKE ONE TABLET TWICE DAILY Disp: Rfl: lancets (TRUEPLUS LANCETS) 30 gauge misc Test twice daily Dx: 250.02 Disp: 200 Each Rfl: 4 traZODone (DESYREL) 50 mg tablet Take 0.5 tablets by mouth daily at bedtime. Disp: 30 tablet Rfl: 5 ARIPiprazole (ABILIFY) 10 mg tablet Take 1 tablet by mouth once daily. Disp: 30 tablet Rfl: 5 nitroglycerin sublingual (NITROQUICK) 0.4 mg SL tablet Dissolve 1 tablet under the tongue as needed. FOR CHEST PAIN. IF NO RELIEF CALL 911 Disp: 25 tablet Rfl: 6 aspirin, enteric coated (ECOTRIN LOW STRENGTH) 81 mg EC tablet Take 1 tablet by mouth once daily. Disp: Rfl: 0 No current facility-administered medications for this visit. (currently taking) Anthropometrics: Height: Last 1 Encounter Ht Readings: Date: Ht: 01/09/2018 151.6 cm (4' 11.7) Current weight: Last 1 Encounter Wt Readings: Date: Wt: 01/09/2018 167.2 kg (368 lb 9.6 oz) Body mass index is 67.88 kg/m?. Resting Metabolic Rate: 2171 NUTRITION ASSESSMENT: Malnutrition Screening Significant unintentional weight loss? No Eating less than 75% of usual intake for more than 2 weeks? No Potential Signs of Inflammation: no identifiable sources RECOMMENDED MALNUTRITION DIAGNOSIS: NO MALNUTRITION IDENTIFIED Nutritional status: Educational materials provided: none this visit READINESS TO LEARN Cognitive ability: Alert and oriented Motivation to learn: Interested Family support: Unable to assess - Family not present Instruction provided to: Patient Patient learns best by: Multiple Methods Factors affecting learning: None Physical limitations affecting learning: None Likelihood of Adherence: High Patient presents in preparation for weight loss surgery, LSG. Since last assessment Patient has lost 29 pounds. Diet recall reveals adherence to partial liquid plan with appropriate use of protein shake as meal replacement. Meals are well-balanced and in proper portion sizes. Snacks are also appropriate. Fluids meeting recommendations in type and amount. Physical activity is increasing daily. No new labs since last assessment. Patient does meet National Institutes Health guidelines for weight loss surgery, however needs to demonstrate consistent effort in making dietary changes before being cleared for surgery. It is anticipated that the patient will need at least 1-2 nutritional follow-up visits prior to clearance for surgery. Today is visit #2. Nutrition Diagnosis: Overweight Obesity, related to; food/nutrition - related knowledge deficit, as evidenced by BMI above normative standard for age and gender. Nutrition Intervention 01/16/2018: Modify type and amount of food and beverage 1. Continue the partial liquid protein plan Breakfast: Protein shake and fruit Lunch: Protein shake and fruit Dinner: 4 oz lean meat/fish, vegetables, fruit and up to 1c starch/whole grains Snack: < 150 calories 1x per day (should contain protein) 2. Fluids: At least 64 oz per day no carbonation, no caffeine, no calories 3. Continue to take your Vitamin D 4. Exercise: Minimum 150 minutes per week Pre-Op Goal Weight: 330 pounds, per Dr. Slater Nutrition Monitoring AND Evaluation: 1-2 pounds weight loss per week Criteria: patient update and weight check Need for Follow up: 1 month Referred/Supervised by: Nohemy/Nany SUGGS Billing Type: Re-assess/15 min 2 units SIGNATURE: Daija Seals RD PATIENT NAME: Kathleen Khan DATE: January 16, 2018 TIME: 7:31 AM PAGER: [id number] PROGRESS Observed: 01/09/2018 Status: COMPLETED Source: [place] 9:09 AM [facility] [place] REPOSITORY HNO ID: [id number] Author: Mike Rawls (Fel) Service: (none) Author Type: Fellow Type: Progress Notes Filed: 2018 8:55 AM Note Text: BARIATRIC HANDP/PRE-OPERATIVE CONSULT SERVICE DATE: 01/09/2018 SERVICE TIME: 0909 PRIMARY CARE PHYSICIAN: Vincent Herbert MD Subjective CHIEF COMPLAINT: Morbid obesity HPI: Kathleen Khan is a 57 year old female who presents on January 09, 2018 for surgical evaluation and treatment of obesity. The patient is interested in surgical weight management. Age at onset - childhood. Rate of weight gain is described as gradual over years. She considers ideal weight to be 150. Maximum weight 424 approx. 5 year(s) ago. Previous treatments include self-directed dieting. EXERCISE ACTIVITY: Patient unable 2/2 OA Hx chest pain. -Stress tests in 2010 and 2017 at OSH which were neg and probably normal. -[facility] 2012: negative -TTE (): EF 55% DM2: insulin, amaryl HTN GERD: zantac JEREMÍAS: Bipap OA w/ Dysmobility: walker for home, wheelchair otherwise DDD Depression Lap elton Umbilical hernia repair (unknown if mesh) FUNCTIONAL STATUS: Limited most or all of the time (uses scooter, mobility device) PAST MEDICAL HISTORY Diagnosis Date - Abnormal glandular Papanicolaou smear of cervix 05/30/05 ABNL GLANDULAR PAP SMEAR CERVIX - Acute gastritis without mention of hemorrhage - Anxiety state, unspecified - Arrhythmia - Chronic cholecystitis - Chronic obstructive pulmonary disease (COPD) ([facility]) - Congestive heart failure (HCC) 10/03/2011 - Diabetes ([facility]) - diabetes II 2010 - Diaphragmatic hernia without mention of obstruction or gangrene - Dysthymic disorder Depression (non-psychotic) - Esophageal reflux - Essential hypertension, benign - Generalized OA - Localized osteoarthrosis not specified whether primary or secondary, lower leg - Major depressive disorder, recurrent episode - Mucous polyp of cervix 07/19/05 - Other and unspecified anterior pituitary hyperfunction 10/13/05 elevated prolactin level-was normal in 2011 - PMH - PAST MEDICAL HISTORY OF sleep apnea - PMH - PAST MEDICAL HISTORY OF sleep apnea - SVT (supraventricular tachycardia) (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 PAST SURGICAL HISTORY Procedure Laterality Date - CERVICAL BIOPSY OR EXCISION 07/19/05 endocervical polyp - COLONOSCOP W/ OR W/O [facility] SPEC 01/09/2012 Colonoscopy repeat 10 years - COLPOSCOPY (VAGINOSCOPY) Colposcopy - EGD W/O [facility] SPECIMEN W/BX 01/16/07 - EGD W/O OR W/BRUSH/WASH 01/09/2012 EGD - HYSTEROSCOPY DX 12/17/2014 [facility] - LAP CHOLECYSTECT/CHOLANGIOGRAPHY 05/15/08 FAMILY HISTORY Problem Relation Age of Onset - Hypertension Mother - Heart Mother concha stroke - Diabetes Mother - Stroke Mother Massive- - Arthritis Mother Osteoarthritis - Hypertension Father - COPD Father - Hypertension Sister 2 - Hypertension Brother 3 - Heart Brother triple bypass at 48 - Heart Maternal Aunt - Heart Maternal Uncle - Diabetes Brother 3 Brother's with diabetes - Diabetes Sister - Arthritis Sister - Arthritis Brother - Arthritis Brother - Arthritis Brother Social History Substance Use Topics - Smoking status: Former Smoker Packs/day: 1.00 Years: 15.00 Types: Cigarettes Quit date: 12/20/1994 - Smokeless tobacco: Never Used - Alcohol use No Current Outpatient Prescriptions: cholecalciferol, Vitamin D3, (VITAMIN D3) 50,000 unit cap capsule Take 1 capsule by mouth once each week. furosemide (LASIX) 0.5 mg/mL syrg DAILY baclofen (LIORESAL) 10 mg tablet take 1 tablet by mouth twice a day blood sugar diagnostic (BLOOD GLUCOSE TEST) test strip Test blood sugars up to 4 times daily as directed. Dx: Type 2 DM - Controlled E11.9 Insulin: No cholecalciferol, vitamin D3, 50,000 unit tab Take 1 tablet by mouth once each week for 8 doses. potassium chloride ER (K-DUR, KLOR-CON) 10 mEq tablet Take 1 tablet by mouth once daily. polyethylene glycol 3350 (MIRALAX, GLYCOLAX) 17 gram/dose powder Take 17 g by mouth once daily. insulin glargine (BASAGLAR KWIKPEN U-100 INSULIN) 100 unit/mL (3 mL) inpn Inject 30 Units subcutaneously daily at bedtime. gabapentin (NEURONTIN) 300 mg capsule Take 1 capsule by mouth twice daily for 90 days. nabumetone (RELAFEN) 500 mg tablet Take 1 tablet by mouth once daily. TAKE WITH FOOD Blood-Glucose Meter monitoring kit Glucose Meter of Choice - Kit - Dx: Type 2 DM - Controlled E11.9 Use twice daily as directed nystatin (MYCOSTATIN) cream Apply 1 application to affected area twice daily. linagliptin (TRADJENTA) 5 mg tab Take 1 tablet by mouth once daily. spironolactone (ALDACTONE) 25 mg tablet Take 1 tablet by mouth once daily. ranitidine (ZANTAC) 150 mg tablet Take 1 tablet by mouth twice daily. furosemide (LASIX) 20 mg tablet Take 1 tablet by mouth once daily. DULoxetine (CYMBALTA) 60 mg capsule Take 1 capsule by mouth once daily. primidone (MYSOLINE) 50 mg tablet TAKE ONE TABLET ONCE DAILY AT BEDTIME Insulin Hamlin, Disposable, (BD ULTRA-FINE MADI PEN NEEDLE) 32 gauge x ndle Use one needle for each dose. 1/day. HYDROcodone-acetaminophen (NORCO) 5-325 mg per tablet TAKE ONE TABLET TWICE DAILY lancets (TRUEPLUS LANCETS) 30 gauge misc Test twice daily Dx: 250.02 traZODone (DESYREL) 50 mg tablet Take 0.5 tablets by mouth daily at bedtime. ARIPiprazole (ABILIFY) 10 mg tablet Take 1 tablet by mouth once daily. nitroglycerin sublingual (NITROQUICK) 0.4 mg SL tablet Dissolve 1 tablet under the tongue as needed. FOR CHEST PAIN. IF NO RELIEF CALL 911 aspirin, enteric coated (ECOTRIN LOW STRENGTH) 81 mg EC tablet Take 1 tablet by mouth once daily. No current facility-administered medications for this visit. ALLERGIES Allergen Reactions - Lyrica [Pregabalin] Anaphylaxis Not sure if accurate. Can take gabapentin. Patient is unsure of reaction. - Accupril [Quinapril* Intolerance dizziness - Amlodipine Swelling Leg edema - Atenolol Swelling - Atorvastatin Intolerance Muscle cramps and weakness - Effexor [Venlafaxin* swelling high blood pressure - Januvia [Sitaglipti* GI Upset, Other: See Comments Patient states she couldn't eat - Metoprolol Swelling - Mobic [Meloxicam] GI Upset - Prozac [Fluoxetine * Intolerance tremor - Risperidone Mental Status Change - Seroquel [Quetiapin* hypertension,swelling - Vancomycin Itching, Other: See Comments red all over - Vioxx [Rofecoxib] GI Upset - Wellbutrin [Bupropi* Intolerance nightmares REVIEW OF SYSTEMS: General: Weight loss Neuro: No history of TIA's, stroke, 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 Respiratory: Obstructive Sleep Apnea (on BiPAP) Cardiovascular: Hypertension requiring meds, Chest pain neg workup GI: GERD : No history of UTI in past 6 weeks. No history of renal failure. Not currently on or requiring dialysis. No history of symptoms or problems. RESIDENCE HALL DIRECTOR: Not reviewed Endocrine: Diabetes Mellitus on insulin, Diabetes Mellitus on oral agent Hematology: No history of bleeding or clotting disorder. No history of hematological symptoms or problems. Oncology: Not reviewed Psych: Depression Objective PHYSICAL EXAM: VITALS: BP 117/66 Pulse 74 Ht 4' 11.7 (1.52m) Wt 368 lb 9.6 oz (167.2kg) SpO2 97% LMP 12/11/2008 BMI 72.75 kg/(m2). General: Alert and oriented, No acute distress Skin: Normal color, no rash, no lesions. HEENT: eomi Abdomen: Soft, non-tender, no rigidity., periumbilical scar Extremities: Joint swelling DATA: Diagnostic tests reviewed for today's visit: Most recent labs Assessment/Plan IMPRESSION: Patient Active Problem List Morbid obesity (HCC) Obstructive sleep apnea SVT (supraventricular tachycardia) (HCC) Liver disease Umbilical hernia without obstruction and without gangrene Bilateral primary osteoarthritis of knee Diffuse myofascial pain syndrome Dysthymia Major depressive disorder, recurrent episode, moderate (HCC) Pain disorder with psychological factors PMB (postmenopausal bleeding) DM (diabetes mellitus) (HCC) DDD (degenerative disc disease), cervical Spondylolisthesis Lumbar facet arthropathy DDD (degenerative disc disease), lumbar Congestive heart failure (HCC) Diaphragmatic hernia without mention of obstruction or gangrene Esophageal reflux Irregular menstrual cycle HYPERPROLACTINEMIA ABNL GLANDULAR PAP SMEAR CERVIX Anxiety state Essential hypertension, benign Ms. Khan is a 57 year old female referred to me for preoperative evaluation. PLAN/RECOMMENDATIONS: ASSESSMENT AND PLAN: -Recommend LSG due to age and comorbidities, especially dysmobility -Will need to lose 30 more lbs, 330 lbs -Continue BMI consultations/clearances -Needs [facility] Cards eval SIGNATURE: Mike Rawls MD PATIENT NAME: Kathleen Khan DATE: January 09, 2018 TIME: 9:09 AM PAGER/CONTACT #: [id number] Observed: 01/09/2018 Status: COMPLETED Source: [place] 8:45 AM [facility] REPOSITORY Office Visit (GENBMI) KATHLEEN KHAN V ([id number]) 1960 F Date Time Provider Department 01/09/18 8:45 AM KATIE SLATER [facility]BMI During your visit today, we recorded the following information about you: Pulse Blood pressure Weight Height 74/minute 117/66 167.2 kg 1.516 m Mike Rawls MD 2018 8:55 AM Signed BARIATRIC HANDP/PRE-OPERATIVE CONSULT SERVICE DATE: 01/09/2018 SERVICE TIME: 908 PRIMARY CARE PHYSICIAN: Vincent Herbert MD Subjective CHIEF COMPLAINT: Morbid obesity HPI: Kathleen Khan is a 57 year old female who presents on January 09, 2018 for surgical evaluation and treatment of obesity. The patient is interested in surgical weight management. Age at onset - childhood. Rate of weight gain is described as gradual over years. She considers ideal weight to be 150. Maximum weight 424 approx. 5 year(s) ago. Previous treatments include self-directed dieting. EXERCISE ACTIVITY: Patient unable 2/2 OA Hx chest pain. -Stress tests in 2010 and 2017 at OSH which were neg and probably normal. -[facility] 2012: negative -TTE (): EF 55% DM2: insulin, amaryl HTN GERD: zantac JEREMÍAS: Bipap OA w/ Dysmobility: walker for home, wheelchair otherwise DDD Depression Lap elton Umbilical hernia repair (unknown if mesh) FUNCTIONAL STATUS: Limited most or all of the time (uses scooter, mobility device) PAST MEDICAL HISTORY Diagnosis Date - Abnormal glandular Papanicolaou smear of cervix 05/30/05 ABNL GLANDULAR PAP SMEAR CERVIX - Acute gastritis without mention of hemorrhage - Anxiety state, unspecified - Arrhythmia - Chronic cholecystitis - Chronic obstructive pulmonary disease (COPD) (HCC) - Congestive heart failure (HCC) 10/03/2011 - Diabetes ([facility]) - diabetes II 2010 - Diaphragmatic hernia without mention of obstruction or gangrene - Dysthymic disorder Depression (non-psychotic) - Esophageal reflux - Essential hypertension, benign - Generalized OA - Localized osteoarthrosis not specified whether primary or secondary, lower leg - Major depressive disorder, recurrent episode - Mucous polyp of cervix 07/19/05 - Other and unspecified anterior pituitary hyperfunction 10/13/05 elevated prolactin level-was normal in 2012 - PMH - PAST MEDICAL HISTORY OF sleep apnea - PMH - PAST MEDICAL HISTORY OF sleep apnea - SVT (supraventricular tachycardia) (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 PAST SURGICAL HISTORY Procedure Laterality Date - CERVICAL BIOPSY OR EXCISION 07/19/05 endocervical polyp - COLONOSCOP W/ OR W/O [facility] SPEC 01/09/2012 Colonoscopy repeat 10 years - COLPOSCOPY (VAGINOSCOPY) Colposcopy - EGD W/O [facility] SPECIMEN W/BX 01/16/07 - EGD W/O OR W/BRUSH/WASH 01/09/2012 EGD - HYSTEROSCOPY DX 12/17/2014 [facility] - LAP CHOLECYSTECT/CHOLANGIOGRAPHY 05/15/08 FAMILY HISTORY Problem Relation Age of Onset - Hypertension Mother - Heart Mother concha stroke - Diabetes Mother - Stroke Mother Massive- - Arthritis Mother Osteoarthritis - Hypertension Father - COPD Father - Hypertension Sister 2 - Hypertension Brother 3 - Heart Brother triple bypass at 48 - Heart Maternal Aunt - Heart Maternal Uncle - Diabetes Brother 3 Brother's with diabetes - Diabetes Sister - Arthritis Sister - Arthritis Brother - Arthritis Brother - Arthritis Brother Social History Substance Use Topics - Smoking status: Former Smoker Packs/day: 1.00 Years: 15.00 Types: Cigarettes Quit date: 12/20/1994 - Smokeless tobacco: Never Used - Alcohol use No Current Outpatient Prescriptions: cholecalciferol, Vitamin D3, (VITAMIN D3) 50,000 unit cap capsule Take 1 capsule by mouth once each week. furosemide (LASIX) 0.5 mg/mL syrg DAILY baclofen (LIORESAL) 10 mg tablet take 1 tablet by mouth twice a day blood sugar diagnostic (BLOOD GLUCOSE TEST) test strip Test blood sugars up to 4 times daily as directed. Dx: Type 2 DM - Controlled E11.9 Insulin: No cholecalciferol, vitamin D3, 50,000 unit tab Take 1 tablet by mouth once each week for 8 doses. potassium chloride ER (K-DUR, KLOR-CON) 10 mEq tablet Take 1 tablet by mouth once daily. polyethylene glycol 3350 (MIRALAX, GLYCOLAX) 17 gram/dose powder Take 17 g by mouth once daily. insulin glargine (BASAGLAR KWIKPEN U-100 INSULIN) 100 unit/mL (3 mL) inpn Inject 30 Units subcutaneously daily at bedtime. gabapentin (NEURONTIN) 300 mg capsule Take 1 capsule by mouth twice daily for 90 days. nabumetone (RELAFEN) 500 mg tablet Take 1 tablet by mouth once daily. TAKE WITH FOOD Blood-Glucose Meter monitoring kit Glucose Meter of Choice - Kit - Dx: Type 2 DM - Controlled E11.9 Use twice daily as directed nystatin (MYCOSTATIN) cream Apply 1 application to affected area twice daily. linagliptin (TRADJENTA) 5 mg tab Take 1 tablet by mouth once daily. spironolactone (ALDACTONE) 25 mg tablet Take 1 tablet by mouth once daily. ranitidine (ZANTAC) 150 mg tablet Take 1 tablet by mouth twice daily. furosemide (LASIX) 20 mg tablet Take 1 tablet by mouth once daily. DULoxetine (CYMBALTA) 60 mg capsule Take 1 capsule by mouth once daily. primidone (MYSOLINE) 50 mg tablet TAKE ONE TABLET ONCE DAILY AT BEDTIME Insulin Hamlin, Disposable, (BD ULTRA-FINE MADI PEN NEEDLE) 32 gauge x 5/32 ndle Use one needle for each dose. 1/day. HYDROcodone-acetaminophen (NORCO) 5-325 mg per tablet TAKE ONE TABLET TWICE DAILY lancets (TRUEPLUS LANCETS) 30 gauge misc Test twice daily Dx: 250.02 traZODone (DESYREL) 50 mg tablet Take 0.5 tablets by mouth daily at bedtime. ARIPiprazole (ABILIFY) 10 mg tablet Take 1 tablet by mouth once daily. nitroglycerin sublingual (NITROQUICK) 0.4 mg SL tablet Dissolve 1 tablet under the tongue as needed. FOR CHEST PAIN. IF NO RELIEF CALL 911 aspirin, enteric coated (ECOTRIN LOW STRENGTH) 81 mg EC tablet Take 1 tablet by mouth once daily. No current facility-administered medications for this visit. ALLERGIES Allergen Reactions - Lyrica [Pregabalin] Anaphylaxis Not sure if accurate. Can take gabapentin. Patient is unsure of reaction. - Accupril [Quinapril* Intolerance dizziness - Amlodipine Swelling Leg edema - Atenolol Swelling - Atorvastatin Intolerance Muscle cramps and weakness - Effexor [Venlafaxin* swelling high blood pressure - Januvia [Sitaglipti* GI Upset, Other: See Comments Patient states she couldn't eat - Metoprolol Swelling - Mobic [Meloxicam] GI Upset - Prozac [Fluoxetine * Intolerance tremor - Risperidone Mental Status Change - Seroquel [Quetiapin* hypertension,swelling - Vancomycin Itching, Other: See Comments red all over - Vioxx [Rofecoxib] GI Upset - Wellbutrin [Bupropi* Intolerance nightmares REVIEW OF SYSTEMS: General: Weight loss Neuro: No history of TIA's, stroke, 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 Respiratory: Obstructive Sleep Apnea (on BiPAP) Cardiovascular: Hypertension requiring meds, Chest pain neg workup GI: GERD : No history of UTI in past 6 weeks. No history of renal failure. Not currently on or requiring dialysis. No history of symptoms or problems. RESIDENCE HALL DIRECTOR: Not reviewed Endocrine: Diabetes Mellitus on insulin, Diabetes Mellitus on oral agent Hematology: No history of bleeding or clotting disorder. No history of hematological symptoms or problems. Oncology: Not reviewed Psych: Depression Objective PHYSICAL EXAM: VITALS: BP 117/66 Pulse 74 Ht 4' 11.7 (1.52m) Wt 368 lb 9.6 oz (167.2kg) SpO2 97% LMP 12/11/2008 BMI 72.75 kg/(m2). General: Alert and oriented, No acute distress Skin: Normal color, no rash, no lesions. HEENT: eomi Abdomen: Soft, non-tender, no rigidity., periumbilical scar Extremities: Joint swelling DATA: Diagnostic tests reviewed for today's visit: Most recent labs Assessment/Plan IMPRESSION: Patient Active Problem List Morbid obesity (HCC) Obstructive sleep apnea SVT (supraventricular tachycardia) (HCC) Liver disease Umbilical hernia without obstruction and without gangrene Bilateral primary osteoarthritis of knee Diffuse myofascial pain syndrome Dysthymia Major depressive disorder, recurrent episode, moderate (HCC) Pain disorder with psychological factors PMB (postmenopausal bleeding) DM (diabetes mellitus) (HCC) DDD (degenerative disc disease), cervical Spondylolisthesis Lumbar facet arthropathy DDD (degenerative disc disease), lumbar Congestive heart failure (HCC) Diaphragmatic hernia without mention of obstruction or gangrene Esophageal reflux Irregular menstrual cycle HYPERPROLACTINEMIA ABNL GLANDULAR PAP SMEAR CERVIX Anxiety state Essential hypertension, benign Ms. Khan is a 57 year old female referred to me for preoperative evaluation. PLAN/RECOMMENDATIONS: ASSESSMENT AND PLAN: -Recommend LSG due to age and comorbidities, especially dysmobility -Will need to lose 30 more lbs, 330 lbs -Continue BMI consultations/clearances -Needs [facility] Cards eval SIGNATURE: Mike Rawls MD PATIENT NAME: Kathleen Khan DATE: January 09, 2018 TIME: 9:09 AM PAGER/CONTACT #: Referring Provider: KATIE SLATER [[id number]] Allergies As of Date: 01/09/2018 Noted Allergy Reaction LYRICA (PREGABALIN) 08/05/2012 10 - Anaphylaxis Comments: Not sure if accurate. Can take gabapentin. Patient is unsure of reaction. ACCUPRIL (QUINAPRIL HCL) 08/12/2005 5 - Intolerance Comments: dizziness AMLODIPINE 04/24/2008 7 - Swelling Comments: Leg edema ATENOLOL 09/29/2010 7 - Swelling ATORVASTATIN 11/01/2017 5 - Intolerance Comments: Muscle cramps and weakness EFFEXOR (VENLAFAXINE HCL) 09/22/2005 Comments: swelling high blood pressure JANUVIA (SITAGLIPTIN) 09/21/2011 8 - GI Upset 14 - Other: See Comments Comments: Patient states she couldn't eat METOPROLOL 09/21/2009 7 - Swelling MOBIC (MELOXICAM) 08/12/2005 8 - GI Upset PROZAC (FLUOXETINE HCL) 08/12/2005 5 - Intolerance Comments: tremor RISPERIDONE 12/22/2009 1 - Mental Status Change SEROQUEL (QUETIAPINE FUMARATE) 10/05/2006 Comments: hypertension,swelling VANCOMYCIN 08/10/2017 9 - Itching 14 - Other: See Comments Comments: red all over VIOXX (ROFECOXIB) 08/12/2005 8 - GI Upset WELLBUTRIN (BUPROPION HCL) 08/12/2005 5 - Intolerance Comments: nightmares Date Reviewed: 01/09/2018 Reviewed by: Nasra Geronimo MA - Fully Assessed Reason for Visit: New Patient [172] Primary Visit Diagnosis:Morbid obesity (HCC) [E66.01] Prescriptions as of 01/09/2018 Sig: CHOLECALCIFEROL (VITAMIN D3) * Take 1 capsule by mouth once * FUROSEMIDE 0.5 MG/ML PEDIATRI* DAILY BACLOFEN 10 MG TABLET take 1 tablet by mouth twice * BLOOD SUGAR DIAGNOSTIC STRIPS Test blood sugars up to 4 tiara* CHOLECALCIFEROL (VITAMIN D3) * Take 1 tablet by mouth once e* POTASSIUM CHLORIDE ER 10 MEQ * Take 1 tablet by mouth once d* POLYETHYLENE GLYCOL 3350 17 G* Take 17 g by mouth once daily. INSULIN GLARGINE (U-100) 100 * Inject 30 Units subcutaneousl* GABAPENTIN 300 MG CAPSULE Take 1 capsule by mouth twice* NABUMETONE 500 MG TABLET Take 1 tablet by mouth once d* BLOOD-GLUCOSE METER KIT Glucose Meter of Choice - Kit* NYSTATIN 100,000 UNIT/GRAM TO* Apply 1 application to affect* LINAGLIPTIN 5 MG TABLET Take 1 tablet by mouth once d* SPIRONOLACTONE 25 MG TABLET Take 1 tablet by mouth once d* RANITIDINE 150 MG TABLET Take 1 tablet by mouth twice * FUROSEMIDE 20 MG TABLET Take 1 tablet by mouth once d* DULOXETINE 60 MG CAPSULE,JODI* Take 1 capsule by mouth once * PRIMIDONE 50 MG TABLET TAKE ONE TABLET ONCE DAILY AT* PEN NEEDLE, DIABETIC 32 GAUGE* Use one needle for each dose.* HYDROCODONE 5 MG-ACETAMINOPHE* TAKE ONE TABLET TWICE DAILY LANCETS 30 GAUGE Test twice daily Dx: 250.02 TRAZODONE 50 MG TABLET Take 0.5 tablets by mouth padmini* ARIPIPRAZOLE 10 MG TABLET Take 1 tablet by mouth once d* NITROGLYCERIN 0.4 MG SUBLINGU* Dissolve 1 tablet under the t* ASPIRIN 81 MG TABLET,DELAYED * Take 1 tablet by mouth once d* Problem List As Of Date 01/09/2018 Noted Resolved Major depressive disorder, recurrent episode, u*INVALID FOR*11/24/2014 Priority: A More... Anxiety state [F41.1] INVALID FOR* BENIGN HYPERTENSION [I10] INVALID FOR* OSTEOARTHROS NOS-UNSPEC [M19.90] INVALID FOR*02/07/2007 ABNL GLANDULAR PAP SMEAR CERVIX [R87.619] INVALID FOR* HYPERPROLACTINEMIA [E22.9] INVALID FOR* IRREGULAR MENSTRUATION [N92.6] INVALID FOR* ESOPHAGEAL REFLUX [K21.9] INVALID FOR* ACUTE GASTRITIS W/O HEMORRHAGE [K29.00] INVALID FOR*02/07/2007 DIAPHRAGMATIC HERNIA [K44.9] INVALID FOR* Unspecified gastritis and gastroduodenitis with*INVALID FOR*07/24/2016 Localized osteoarthrosis not specified whether *INVALID FOR*07/24/2016 Priority: A More... Pain in joint, site unspecified [M25.50] INVALID FOR*07/24/2016 Routine general medical examination at a health*INVALID FOR*11/29/2011 Class: Chronic More... Routine gynecological examination [Z01.419] INVALID FOR*11/29/2011 Class: Chronic More... More... Morbid obesity [E66.01] INVALID FOR* Priority: Very Severe Hyperprolactinemia [E22.1] INVALID FOR*01/30/2012 Obstructive sleep apnea [G47.33] INVALID FOR* Priority: Severe More... Medication side effects [T88.7XXA] INVALID FOR*08/10/2017 SVT (supraventricular tachycardia) [I47.1] Priority: A Type II or unspecified type diabetes mellitus w*INVALID FOR*04/10/2012 Priority: Moderate More... Congestive heart failure [I50.9] INVALID FOR* Spondylolisthesis [M43.10] INVALID FOR* Lumbar facet arthropathy [M47.816] INVALID FOR* DDD (degenerative disc disease), lumbar [M51.36]INVALID FOR* Diabetes mellitus [E11.9] INVALID FOR*11/24/2014 DDD (degenerative disc disease), cervical [M50.*INVALID FOR* DM (diabetes mellitus) (HCC) [E11.9] INVALID FOR* PMB (postmenopausal bleeding) [N95.0] INVALID FOR* Dysthymia [F34.1] INVALID FOR* Major depressive disorder, recurrent episode, m*INVALID FOR* More... Pain disorder with psychological factors [F45.4*INVALID FOR* Diffuse myofascial pain syndrome [M79.18] INVALID FOR* Bilateral primary osteoarthritis of knee [M17.0]INVALID FOR* Obesity, Class III, BMI >= 40 [E66.01] INVALID FOR*10/20/2017 Liver disease [K76.9] INVALID FOR* More... Umbilical hernia without obstruction and withou*INVALID FOR* More... Encounter Status:Closed by KATIE SLATER MD on 01/15/18 PROGRESS Observed: 01/07/2018 Status: COMPLETED Source: [place] 7:04 PM [facility] [place] REPOSITORY HNO ID: [id number] Author: Sanjay Gaspar (Carlos) Elroy Service: (none) Author Type: Physician Chemical Recovery Operator Type: Progress Notes Filed: 01/07/2018 7:11 PM Note Text: 57 year old female with here with sister for procedure to removal of large skin tag on left buttock. EXAM: Temp 36.2 ?C (97.1 ?F) (Tympanic) LMP 12/11/2008 Pleasant obese woman in no acute distress. Alert and oriented all spheres. Normal affect and cognition. Speech normal. No deficits to learning or comprehension. Skin warm, dry, pink to lips and nailbeds. Normal turgor. Respirations regular and unlabored. left buttock with a large purplish skin tag, base approximately 1 cm with papular head approximately 2 cm. Typical skin tag. UNIVERSAL PROTOCOL / SAFETY CHECKLIST Procedure to be performed: Excision of a large skin tag left buttock Sign in Communication: Completed Time Out: Team Confirms the Correct Patient, Correct Procedure, Correct Site and Site Marking, Correct Position (if applicable), Prep and Dry Time (if applicable). Time: See consent form Affirmation of Time Out: YES Sign Out Discussion: Completed Sanjay Abbasi PA-C Attending by Germania RICHARDSON Student Procedure: Area was prepped with Betadine in sterile fashion. Anesthesia was obtained or 1% lidocaine with epinephrine with a total of 5 mL injected total Area was incised with a #11 scalpel. Hemostasis was achieved with pressure. Incision was closed with 4. 0 monofilament ?2 sutures with good approximation of wound edges. Sterile saline wash with bacitracin and dry sterile dressing applied. Procedure tolerated well outside of patient's complaint of back discomfort. We were not able to do this in bed due to patient's inability to mobilize with her weight and back issues. We did this with her seated on a bench rolled onto her right hip. ASSESSMENT/PLAN: 1. Skin tag - ICD9: 701.9, ICD10: L91.8 Advised to keep the area clean and dry for 24 hours after which she may shower and lightly wash over the area with soap and water. This should be done twice a day followed by bacitracin ointment and dry sterile dressing. Recheck in 3-5 days for wound check, sutures out in 10 days. Notify us if any complications in the interim. Patient acknowledges understanding of instructions. Sanjay Abbasi PA-C CNOV Observed: 01/07/2018 Status: COMPLETED Source: [place] 4:20 PM [facility] REPOSITORY [facility] KATHLEEN KHAN V ([id number]) 1960 F Date Time Provider Department 01/07/18 4:20 PM Sanjay ABBASI) [facility] During your visit today, we recorded the following information about you: Temperature 97.1 degrees Sanjay Abbasi PA-C 01/07/2018 5:31 PM Signed Keep areas clean and dry. Wash with soap and water twice a day and apply Bacitracin with clean dry dressing until bleeding or oozing is controlled. Once the wound is dry, it may be left open to the air unless you will be in a wet or dirty place. If any unusual pain, swelling, red streaks, pus, fever or other signs of worsening infection, instructed to call immediately. Please return in 3-5 days for wound check. You have 2 sutures with need to be removed in 10 days. Sanjay Abbasi PA-C 01/07/2018 7:11 PM Signed 57 year old female with here with sister for procedure to removal of large skin tag on left buttock. EXAM: Temp 36.2 ?C (97.1 ?F) (Tympanic) LMP 12/11/2008 Pleasant obese woman in no acute distress. Alert and oriented all spheres. Normal affect and cognition. Speech normal. No deficits to learning or comprehension. Skin warm, dry, pink to lips and nailbeds. Normal turgor. Respirations regular and unlabored. left buttock with a large purplish skin tag, base approximately 1 cm with papular head approximately 2 cm. Typical skin tag. UNIVERSAL PROTOCOL / SAFETY CHECKLIST Procedure to be performed: Excision of a large skin tag left buttock Sign in Communication: Completed Time Out: Team Confirms the Correct Patient, Correct Procedure, Correct Site and Site Marking, Correct Position (if applicable), Prep and Dry Time (if applicable). Time: See consent form Affirmation of Time Out: YES Sign Out Discussion: Completed Sanjay Abbasi PA-C Attending by Germania RICHARDSON Student Procedure: Area was prepped with Betadine in sterile fashion. Anesthesia was obtained or 1% lidocaine with epinephrine with a total of 5 mL injected total Area was incised with a #11 scalpel. Hemostasis was achieved with pressure. Incision was closed with 4. 0 monofilament ?2 sutures with good approximation of wound edges. Sterile saline wash with bacitracin and dry sterile dressing applied. Procedure tolerated well outside of patient's complaint of back discomfort. We were not able to do this in bed due to patient's inability to mobilize with her weight and back issues. We did this with her seated on a bench rolled onto her right hip. ASSESSMENT/PLAN: 1. Skin tag - ICD9: 701.9, ICD10: L91.8 Advised to keep the area clean and dry for 24 hours after which she may shower and lightly wash over the area with soap and water. This should be done twice a day followed by bacitracin ointment and dry sterile dressing. Recheck in 3-5 days for wound check, sutures out in 10 days. Notify us if any complications in the interim. Patient acknowledges understanding of instructions. Sanjay Abbasi PA-C Referring Provider: Sanjay ABBASI (CARL[facility]) [[id number]] Allergies As of Date: 01/07/2018 Noted Allergy Reaction LYRICA (PREGABALIN) 08/05/2012 10 - Anaphylaxis Comments: Not sure if accurate. Can take gabapentin. Patient is unsure of reaction. ACCUPRIL (QUINAPRIL HCL) 08/12/2005 5 - Intolerance Comments: dizziness AMLODIPINE 04/24/2008 7 - Swelling Comments: Leg edema ATENOLOL 09/29/2010 7 - Swelling ATORVASTATIN 11/01/2017 5 - Intolerance Comments: Muscle cramps and weakness EFFEXOR (VENLAFAXINE HCL) 09/22/2005 Comments: swelling high blood pressure JANUVIA (SITAGLIPTIN) 09/21/2011 8 - GI Upset 14 - Other: See Comments Comments: Patient states she couldn't eat METOPROLOL 09/21/2009 7 - Swelling MOBIC (MELOXICAM) 08/12/2005 8 - GI Upset PROZAC (FLUOXETINE HCL) 08/12/2005 5 - Intolerance Comments: tremor RISPERIDONE 12/22/2009 1 - Mental Status Change SEROQUEL (QUETIAPINE FUMARATE) 10/05/2006 Comments: hypertension,swelling VANCOMYCIN 08/10/2017 9 - Itching 14 - Other: See Comments Comments: red all over VIOXX (ROFECOXIB) 08/12/2005 8 - GI Upset WELLBUTRIN (BUPROPION HCL) 08/12/2005 5 - Intolerance Comments: nightmares Date Reviewed: 01/07/2018 Reviewed by: Kate Brunner LPN - Fully Assessed Reason for Visit: Lesion Removal [62] Cmt: left hip/thigh Primary Visit Diagnosis:Skin tag [L91.8] Prescriptions as of 01/07/2018 Sig: BACLOFEN 10 MG TABLET take 1 tablet by mouth twice * BLOOD SUGAR DIAGNOSTIC STRIPS Test blood sugars up to 4 tiara* CHOLECALCIFEROL (VITAMIN D3) * Take 1 tablet by mouth once e* POTASSIUM CHLORIDE ER 10 MEQ * Take 1 tablet by mouth once d* POLYETHYLENE GLYCOL 3350 17 G* Take 17 g by mouth once daily. INSULIN GLARGINE (U-100) 100 * Inject 30 Units subcutaneousl* GABAPENTIN 300 MG CAPSULE Take 1 capsule by mouth twice* NABUMETONE 500 MG TABLET Take 1 tablet by mouth once d* BLOOD-GLUCOSE METER KIT Glucose Meter of Choice - Kit* NYSTATIN 100,000 UNIT/GRAM TO* Apply 1 application to affect* LINAGLIPTIN 5 MG TABLET Take 1 tablet by mouth once d* SPIRONOLACTONE 25 MG TABLET Take 1 tablet by mouth once d* RANITIDINE 150 MG TABLET Take 1 tablet by mouth twice * FUROSEMIDE 20 MG TABLET Take 1 tablet by mouth once d* DULOXETINE 60 MG CAPSULE,JODI* Take 1 capsule by mouth once * PRIMIDONE 50 MG TABLET TAKE ONE TABLET ONCE DAILY AT* PEN NEEDLE, DIABETIC 32 GAUGE* Use one needle for each dose.* HYDROCODONE 5 MG-ACETAMINOPHE* TAKE ONE TABLET TWICE DAILY LANCETS 30 GAUGE Test twice daily Dx: 250.02 TRAZODONE 50 MG TABLET Take 0.5 tablets by mouth padmini* ARIPIPRAZOLE 10 MG TABLET Take 1 tablet by mouth once d* NITROGLYCERIN 0.4 MG SUBLINGU* Dissolve 1 tablet under the t* ASPIRIN 81 MG TABLET,DELAYED * Take 1 tablet by mouth once d* Problem List As Of Date 01/07/2018 Noted Resolved Major depressive disorder, recurrent episode, u*INVALID FOR*11/24/2014 Priority: A More... Anxiety state [F41.1] INVALID FOR* BENIGN HYPERTENSION [I10] INVALID FOR* OSTEOARTHROS NOS-UNSPEC [M19.90] INVALID FOR*02/07/2007 ABNL GLANDULAR PAP SMEAR CERVIX [R87.619] INVALID FOR* HYPERPROLACTINEMIA [E22.9] INVALID FOR* IRREGULAR MENSTRUATION [N92.6] INVALID FOR* ESOPHAGEAL REFLUX [K21.9] INVALID FOR* ACUTE GASTRITIS W/O HEMORRHAGE [K29.00] INVALID FOR*02/07/2007 DIAPHRAGMATIC HERNIA [K44.9] INVALID FOR* Unspecified gastritis and gastroduodenitis with*INVALID FOR*07/24/2016 Localized osteoarthrosis not specified whether *INVALID FOR*07/24/2016 Priority: A More... Pain in joint, site unspecified [M25.50] INVALID FOR*07/24/2016 Routine general medical examination at a health*INVALID FOR*11/29/2011 Class: Chronic More... Routine gynecological examination [Z01.419] INVALID FOR*11/29/2011 Class: Chronic More... More... Morbid obesity [E66.01] INVALID FOR* Priority: Very Severe Hyperprolactinemia [E22.1] INVALID FOR*01/30/2012 Obstructive sleep apnea [G47.33] INVALID FOR* Priority: Severe More... Medication side effects [T88.7XXA] INVALID FOR*08/10/2017 SVT (supraventricular tachycardia) [I47.1] Priority: A Type II or unspecified type diabetes mellitus w*INVALID FOR*04/10/2012 Priority: Moderate More... Congestive heart failure [I50.9] INVALID FOR* Spondylolisthesis [M43.10] INVALID FOR* Lumbar facet arthropathy [M47.816] INVALID FOR* DDD (degenerative disc disease), lumbar [M51.36]INVALID FOR* Diabetes mellitus [E11.9] INVALID FOR*11/24/2014 DDD (degenerative disc disease), cervical [M50.*INVALID FOR* DM (diabetes mellitus) (HCC) [E11.9] INVALID FOR* PMB (postmenopausal bleeding) [N95.0] INVALID FOR* Dysthymia [F34.1] INVALID FOR* Major depressive disorder, recurrent episode, m*INVALID FOR* More... Pain disorder with psychological factors [F45.4*INVALID FOR* Diffuse myofascial pain syndrome [M79.18] INVALID FOR* Bilateral primary osteoarthritis of knee [M17.0]INVALID FOR* Obesity, Class III, BMI >= 40 [E66.01] INVALID FOR*10/20/2017 Liver disease [K76.9] INVALID FOR* More... Umbilical hernia without obstruction and withou*INVALID FOR* More... Other instructions from your clinician: Keep areas clean and dry. Wash with soap and water twice a day and apply Bacitracin with clean dry dressing until bleeding or oozing is controlled. Once the wound is dry, it may be left open to the air unless you will be in a wet or dirty place. If any unusual pain, swelling, red streaks, pus, fever or other signs of worsening infection, instructed to call immediately. Please return in 3-5 days for wound check. You have 2 sutures with need to be removed in 10 days. Encounter Status:Closed by Sanjay ABBASI PA-C on 01/07/18 PROGRESS Observed: 01/02/2018 Status: COMPLETED Source: [place] 5:47 PM [facility] HNO ID: [id number] Author: Sanjay Gaspar (Carlos) Elroy Service: (none) Author Type: Physician Chemical Recovery Operator Type: Progress Notes Filed: 01/02/2018 5:55 PM Note Text: BP 132/70 Pulse 88 Temp 36.5 ?C (97.7 ?F) (Tympanic) Resp 20 Wt (!) 169.2 kg (373 lb) LMP 12/11/2008 BMI 70.32 kg/m? 57 year old female with c/o here for follow Morbid obesity. Patient has had workup at bariatric center and has been approved for surgery. She is very excited about this and hopeful that it will correct a lot of her problems. Obstructive sleep apnea: Compliant with therapy Anxiety state: Feels symptoms are currently controlled. Currently on Cymbalta, Quetiapine. Essential hypertension, benign: compliant with medication which currently amounts to Aldactone and Lasix. denies headache, dizziness, chest pain, shortness of breath, cough. Gastroesophageal reflux disease without esophagitis; reflux is controlled on Zantac routinely.. Congestive heart failure, unspecified hf chronicity, unspecified heart failure type ([facility]) currently compliant with diuretics. Patient denies shortness of breath, orthopnea. Chronic leg edema with out pitting Pain disorder with psychological factors: Continues on hydrocodone, no evidence of diversion Type 2 diabetes mellitus without complication, unspecified whether computer terminal operator insulin use ([facility]): Last A1c 6.2%. Patient denies blurred vision, unusual thirst or excessive urination. No new numbness or tingling. Lesion on left buttock which concerns her for possibly tearing off and bleeding. HISTORIES FAMILY HISTORY Problem Relation Age of Onset - Hypertension Mother - Heart Mother concha stroke - Diabetes Mother - Stroke Mother Massive- - Arthritis Mother Osteoarthritis - Hypertension Father - COPD Father - Hypertension Sister 2 - Hypertension Brother 3 - Heart Brother triple bypass at 48 - Heart Maternal Aunt - Heart Maternal Uncle - Diabetes Brother 3 Brother's with diabetes - Diabetes Sister - Arthritis Sister - Arthritis Brother - Arthritis Brother - Arthritis Brother PAST MEDICAL HISTORY Diagnosis Date - Abnormal glandular Papanicolaou smear of cervix 05/30/05 ABNL GLANDULAR PAP SMEAR CERVIX - Acute gastritis without mention of hemorrhage - Anxiety state, unspecified - Arrhythmia - Chronic cholecystitis - Chronic obstructive pulmonary disease (COPD) ([facility]) - Congestive heart failure (HCC) 10/03/2011 - Diabetes ([facility]) - diabetes II 2010 - Diaphragmatic hernia without mention of obstruction or gangrene - Dysthymic disorder Depression (non-psychotic) - Esophageal reflux - Essential hypertension, benign - Generalized OA - Localized osteoarthrosis not specified whether primary or secondary, lower leg - Major depressive disorder, recurrent episode - Mucous polyp of cervix 07/19/05 - Other and unspecified anterior pituitary hyperfunction 10/13/05 elevated prolactin level-was normal in 2011 - PMH - PAST MEDICAL HISTORY OF sleep apnea - PMH - PAST MEDICAL HISTORY OF sleep apnea - SVT (supraventricular tachycardia) (HCC) - 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 PAST SURGICAL HISTORY Procedure Laterality Date - CERVICAL BIOPSY OR EXCISION 07/19/05 endocervical polyp - COLONOSCOP W/ OR W/O BRSH SPEC 01/09/2012 Colonoscopy repeat 10 years - COLPOSCOPY (VAGINOSCOPY) Colposcopy - EGD W/O BRSH SPECIMEN W/BX 01/16/07 - EGD W/O OR W/BRUSH/WASH 01/09/2012 EGD - HYSTEROSCOPY DX 12/17/2014 [facility] - LAP CHOLECYSTECT/CHOLANGIOGRAPHY 05/15/08 Social History Marital status: Single Spouse name: Years of education: 9 Number of children: 0 Occupational 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 Social History Main Topics Smoking status: Former Smoker Packs/day: 1.00 Years: 15.00 Types: Cigarettes Quit date: 12/20/1994 Smokeless tobacco: Never Used Alcohol use: No Drug use: No Sexual activity: No ACTIVE PROBLEM LIST Anxiety State Essential Hypertension, Benign ABNL GLANDULAR PAP SMEAR CERVIX HYPERPROLACTINEMIA Irregular Menstrual Cycle Esophageal Reflux Diaphragmatic Hernia Without Mention of Obstruction Or Gangrene Morbid Obesity (Hcc) Obstructive Sleep Apnea Svt (Supraventricular Tachycardia) (Hcc) Congestive Heart Failure (Hcc) Spondylolisthesis Lumbar Facet Arthropathy Ddd (Degenerative Disc Disease), Lumbar Ddd (Degenerative Disc Disease), Cervical Dm (Diabetes Mellitus) (Hcc) Pmb (Postmenopausal Bleeding) Dysthymia Major depressive disorder, recurrent episode, moderate (HCC) Pain Disorder With Psychological Factors Diffuse Myofascial Pain Syndrome Bilateral Primary Osteoarthritis of Knee Liver Disease Umbilical Hernia Without Obstruction and Without Gangrene Current Outpatient Prescriptions: baclofen (LIORESAL) 10 mg tablet take 1 tablet by mouth twice a day Disp: 60 tablet Rfl: 1 cholecalciferol, vitamin D3, 50,000 unit tab Take 1 tablet by mouth once each week for 8 doses. Disp: 4 tablet Rfl: 1 potassium chloride ER (K-DUR, KLOR-CON) 10 mEq tablet Take 1 tablet by mouth once daily. Disp: 60 tablet Rfl: 5 polyethylene glycol 3350 (MIRALAX, GLYCOLAX) 17 gram/dose powder Take 17 g by mouth once daily. Disp: 1 Bottle Rfl: 11 insulin glargine (BASAGLAR KWIKPEN U-100 INSULIN) 100 unit/mL (3 mL) inpn Inject 30 Units subcutaneously daily at bedtime. Disp: 3 Pen Rfl: 5 gabapentin (NEURONTIN) 300 mg capsule Take 1 capsule by mouth twice daily for 90 days. Disp: 60 capsule Rfl: 2 nabumetone (RELAFEN) 500 mg tablet Take 1 tablet by mouth once daily. TAKE WITH FOOD Disp: 30 tablet Rfl: 2 nystatin (MYCOSTATIN) cream Apply 1 application to affected area twice daily. Disp: 1 Tube Rfl: 1 linagliptin (TRADJENTA) 5 mg tab Take 1 tablet by mouth once daily. Disp: 90 tablet Rfl: 3 spironolactone (ALDACTONE) 25 mg tablet Take 1 tablet by mouth once daily. Disp: 90 tablet Rfl: 3 ranitidine (ZANTAC) 150 mg tablet Take 1 tablet by mouth twice daily. Disp: 180 tablet Rfl: 3 furosemide (LASIX) 20 mg tablet Take 1 tablet by mouth once daily. Disp: 90 tablet Rfl: 3 DULoxetine (CYMBALTA) 60 mg capsule Take 1 capsule by mouth once daily. Disp: 90 capsule Rfl: 3 primidone (MYSOLINE) 50 mg tablet TAKE ONE TABLET ONCE DAILY AT BEDTIME Disp: 30 tablet Rfl: 11 HYDROcodone-acetaminophen (NORCO) 5-325 mg per tablet TAKE ONE TABLET TWICE DAILY Disp: Rfl: traZODone (DESYREL) 50 mg tablet Take 0.5 tablets by mouth daily at bedtime. Disp: 30 tablet Rfl: 5 ARIPiprazole (ABILIFY) 10 mg tablet Take 1 tablet by mouth once daily. Disp: 30 tablet Rfl: 5 nitroglycerin sublingual (NITROQUICK) 0.4 mg SL tablet Dissolve 1 tablet under the tongue as needed. FOR CHEST PAIN. IF NO RELIEF CALL 911 Disp: 25 tablet Rfl: 6 aspirin, enteric coated (ECOTRIN LOW STRENGTH) 81 mg EC tablet Take 1 tablet by mouth once daily. Disp: Rfl: 0 blood sugar diagnostic (BLOOD GLUCOSE TEST) test strip Test blood sugars up to 4 times daily as directed. Dx: Type 2 DM - Controlled E11.9 Insulin: No Disp: 100 Strip Rfl: 11 Blood-Glucose Meter monitoring kit Glucose Meter of Choice - Kit - Dx: Type 2 DM - Controlled E11.9 Use twice daily as directed Disp: 1 Each Rfl: 0 Insulin [place], Disposable, (BD ULTRA-FINE MADI PEN NEEDLE) 32 gauge x ndle Use one needle for each dose. 1/day. Disp: 100 Each Rfl: 11 lancets (TRUEPLUS LANCETS) 30 gauge misc Test twice daily Dx: 250.02 Disp: 200 Each Rfl: 4 No current facility-administered medications for this visit. FAMILIA/ARB MED PRESCRIBED due on 01/14/1978 DTAP,TDAP,TD(1 - Tdap) due on 02/08/2007 MAMMOGRAM due on 11/16/2016 EXAM: BP 132/70 Pulse 88 Temp 36.5 ?C (97.7 ?F) (Tympanic) Resp 20 Wt (!) 169.2 kg (373 lb) LMP 12/11/2008 BMI 70.32 kg/m? Pleasant Morbidly obese woman in no acute distress. Alert and oriented all spheres. Normal affect and cognition. Speech normal. No deficits to learning or comprehension. Skin warm, dry, pink to lips and nailbeds. Normal turgor. patient is a fairly large skin tag on her left buttocks with a mushroom type of head approximately 2-1/2 cm across with a wide base. Respirations regular and unlabored. HEENT WNL. TM's clear. Nose and oropharynx free from injection or lesion. No cervical lymph nodes. Thyroid non-tender, no masses Chest CTA. HRRR without murmur or gallop. Extrem: no clubbing, cyanosis, edema. Extremities are warm and pink with prompt capillary refill. ASSESSMENT/PLAN: 1. Morbid obesity (HCC) - ICD9: 278.01, ICD10: E66.01 (primary diagnosis) Plan is to consider surgery in mid February. Patient is continuing to lose weight for which she is complemented. 2. Obstructive sleep apnea - ICD9: 327.23, ICD10: G47.33 Patient is compliant with C Pap 3. Anxiety state - ICD9: 300.00, ICD10: F41.1 Currently controlled, no change in medications 4. Essential hypertension, benign - ICD9: 401.1, ICD10: I10 - good control - Recommended regular aerobic exercise. - Recommend home blood pressure monitoring, to bring results in on next visit - Goal of BP <130/80 5. Gastroesophageal reflux disease without esophagitis - ICD9: 530.81, ICD10: K21.9 - Continue ranitidine. 6. Congestive heart failure, unspecified HF chronicity, unspecified heart failure type (HCC) - ICD9: 428.0, ICD10: I50.9 No evidence of active congestive heart failure. Continue diuretics. 7. Pain disorder with psychological factors - ICD9: 307.80, ICD10: F45.41 Patient continues on hydrocodone which currently is managing pain. She seems to be doing well on gabapentin and was Cymbalta. In general still has low back pain and leg pain but feels its tolerable. 8. Type 2 diabetes mellitus without complication, unspecified whether group home insulin use (HCC) - ICD9: 250.00, ICD10: E11.9 Controlled. - Continue current medications Follow-up in 3 months after surgery. Patient (guardian) expressed understanding of instructions and agrees with plan. Sanjay Abbasi PA-C CNOV Observed: 01/02/2018 Status: COMPLETED Source: [place] 3:40 PM [facility] REPOSIT[facility] Office Visit ([facility]) KATHLEEN KHAN V ([id number]) 1960 F Date Time Provider Department 01/02/18 3:40 PM Sanjay ABBASI) [facility] During your visit today, we recorded the following information about you: Temperature Pulse Respiration Blood pressure 97.7 degrees 88/minute 20/minute 132/70 Weight 169.2 kg Sanjay Abbasi PA-C 01/02/2018 5:55 PM Signed BP 132/70 Pulse 88 Temp 36.5 ?C (97.7 ?F) (Tympanic) Resp 20 Wt (!) 169.2 kg (373 lb) LMP 12/11/2008 BMI 70.32 kg/m? 57 year old female with c/o here for follow Morbid obesity. Patient has had workup at bariatric center and has been approved for surgery. She is very excited about this and hopeful that it will correct a lot of her problems. Obstructive sleep apnea: Compliant with therapy Anxiety state: Feels symptoms are currently controlled. Currently on Cymbalta, Quetiapine. Essential hypertension, benign: compliant with medication which currently amounts to Aldactone and Lasix. denies headache, dizziness, chest pain, shortness of breath, cough. Gastroesophageal reflux disease without esophagitis; reflux is controlled on Zantac routinely.. Congestive heart failure, unspecified hf chronicity, unspecified heart failure type ([facility]) currently compliant with diuretics. Patient denies shortness of breath, orthopnea. Chronic leg edema with out pitting Pain disorder with psychological factors: Continues on hydrocodone, no evidence of diversion Type 2 diabetes mellitus without complication, unspecified whether group home insulin use ([facility]): Last A1c 6.2%. Patient denies blurred vision, unusual thirst or excessive urination. No new numbness or tingling. Lesion on left buttock which concerns her for possibly tearing off and bleeding. HISTORIES FAMILY HISTORY Problem Relation Age of Onset - Hypertension Mother - Heart Mother concha stroke - Diabetes Mother - Stroke Mother Massive- - Arthritis Mother Osteoarthritis - Hypertension Father - COPD Father - Hypertension Sister 2 - Hypertension Brother 3 - Heart Brother triple bypass at 48 - Heart Maternal Aunt - Heart Maternal Uncle - Diabetes Brother 3 Brother's with diabetes - Diabetes Sister - Arthritis Sister - Arthritis Brother - Arthritis Brother - Arthritis Brother PAST MEDICAL HISTORY Diagnosis Date - Abnormal glandular Papanicolaou smear of cervix 05/30/05 ABNL GLANDULAR PAP SMEAR CERVIX - Acute gastritis without mention of hemorrhage - Anxiety state, unspecified - Arrhythmia - Chronic cholecystitis - Chronic obstructive pulmonary disease (COPD) ([facility]) - Congestive heart failure (HCC) 10/03/2011 - Diabetes ([facility]) - diabetes II 2010 - Diaphragmatic hernia without mention of obstruction or gangrene - Dysthymic disorder Depression (non-psychotic) - Esophageal reflux - Essential hypertension, benign - Generalized OA - Localized osteoarthrosis not specified whether primary or secondary, lower leg - Major depressive disorder, recurrent episode - Mucous polyp of cervix 07/19/05 - Other and unspecified anterior pituitary hyperfunction 10/13/05 elevated prolactin level-was normal in 2011 - PMH - PAST MEDICAL HISTORY OF sleep apnea - PMH - PAST MEDICAL HISTORY OF sleep apnea - SVT (supraventricular tachycardia) (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 PAST SURGICAL HISTORY Procedure Laterality Date - CERVICAL BIOPSY OR EXCISION 07/19/05 endocervical polyp - COLONOSCOP W/ OR W/O BRSH SPEC 01/09/2012 Colonoscopy repeat 10 years - COLPOSCOPY (VAGINOSCOPY) Colposcopy - EGD W/O BRSH SPECIMEN W/BX 01/16/07 - EGD W/O OR W/BRUSH/WASH 01/09/2012 EGD - HYSTEROSCOPY DX 12/17/2014 [facility] - LAP CHOLECYSTECT/CHOLANGIOGRAPHY 05/15/08 Social History Marital status: Single Spouse name: Years of education: 9 Number of children: 0 Occupational 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 Social History Main Topics Smoking status: Former Smoker Packs/day: 1.00 Years: 15.00 Types: Cigarettes Quit date: 12/20/1994 Smokeless tobacco: Never Used Alcohol use: No Drug use: No Sexual activity: No ACTIVE PROBLEM LIST Anxiety State Essential Hypertension, Benign ABNL GLANDULAR PAP SMEAR CERVIX HYPERPROLACTINEMIA Irregular Menstrual Cycle Esophageal Reflux Diaphragmatic Hernia Without Mention of Obstruction Or Gangrene Morbid Obesity (Hcc) Obstructive Sleep Apnea Svt (Supraventricular Tachycardia) (Hcc) Congestive Heart Failure (Hcc) Spondylolisthesis Lumbar Facet Arthropathy Ddd (Degenerative Disc Disease), Lumbar Ddd (Degenerative Disc Disease), Cervical Dm (Diabetes Mellitus) (Hcc) Pmb (Postmenopausal Bleeding) Dysthymia Major depressive disorder, recurrent episode, moderate (HCC) Pain Disorder With Psychological Factors Diffuse Myofascial Pain Syndrome Bilateral Primary Osteoarthritis of Knee Liver Disease Umbilical Hernia Without Obstruction and Without Gangrene Current Outpatient Prescriptions: baclofen (LIORESAL) 10 mg tablet take 1 tablet by mouth twice a day Disp: 60 tablet Rfl: 1 cholecalciferol, vitamin D3, 50,000 unit tab Take 1 tablet by mouth once each week for 8 doses. Disp: 4 tablet Rfl: 1 potassium chloride ER (K-DUR, KLOR-CON) 10 mEq tablet Take 1 tablet by mouth once daily. Disp: 60 tablet Rfl: 5 polyethylene glycol 3350 (MIRALAX, GLYCOLAX) 17 gram/dose powder Take 17 g by mouth once daily. Disp: 1 Bottle Rfl: 11 insulin glargine (BASAGLAR KWIKPEN U-100 INSULIN) 100 unit/mL (3 mL) inpn Inject 30 Units subcutaneously daily at bedtime. Disp: 3 Pen Rfl: 5 gabapentin (NEURONTIN) 300 mg capsule Take 1 capsule by mouth twice daily for 90 days. Disp: 60 capsule Rfl: 2 nabumetone (RELAFEN) 500 mg tablet Take 1 tablet by mouth once daily. TAKE WITH FOOD Disp: 30 tablet Rfl: 2 nystatin (MYCOSTATIN) cream Apply 1 application to affected area twice daily. Disp: 1 Tube Rfl: 1 linagliptin (TRADJENTA) 5 mg tab Take 1 tablet by mouth once daily. Disp: 90 tablet Rfl: 3 spironolactone (ALDACTONE) 25 mg tablet Take 1 tablet by mouth once daily. Disp: 90 tablet Rfl: 3 ranitidine (ZANTAC) 150 mg tablet Take 1 tablet by mouth twice daily. Disp: 180 tablet Rfl: 3 furosemide (LASIX) 20 mg tablet Take 1 tablet by mouth once daily. Disp: 90 tablet Rfl: 3 DULoxetine (CYMBALTA) 60 mg capsule Take 1 capsule by mouth once daily. Disp: 90 capsule Rfl: 3 primidone (MYSOLINE) 50 mg tablet TAKE ONE TABLET ONCE DAILY AT BEDTIME Disp: 30 tablet Rfl: 11 HYDROcodone-acetaminophen (NORCO) 5-325 mg per tablet TAKE ONE TABLET TWICE DAILY Disp: Rfl: traZODone (DESYREL) 50 mg tablet Take 0.5 tablets by mouth daily at bedtime. Disp: 30 tablet Rfl: 5 ARIPiprazole (ABILIFY) 10 mg tablet Take 1 tablet by mouth once daily. Disp: 30 tablet Rfl: 5 nitroglycerin sublingual (NITROQUICK) 0.4 mg SL tablet Dissolve 1 tablet under the tongue as needed. FOR CHEST PAIN. IF NO RELIEF CALL 911 Disp: 25 tablet Rfl: 6 aspirin, enteric coated (ECOTRIN LOW STRENGTH) 81 mg EC tablet Take 1 tablet by mouth once daily. Disp: Rfl: 0 blood sugar diagnostic (BLOOD GLUCOSE TEST) test strip Test blood sugars up to 4 times daily as directed. Dx: Type 2 DM - Controlled E11.9 Insulin: No Disp: 100 Strip Rfl: 11 Blood-Glucose Meter monitoring kit Glucose Meter of Choice - Kit - Dx: Type 2 DM - Controlled E11.9 Use twice daily as directed Disp: 1 Each Rfl: 0 Insulin Hamlin, Disposable, (BD ULTRA-FINE MADI PEN NEEDLE) 32 gauge x 5/32 ndle Use one needle for each dose. 1/day. Disp: 100 Each Rfl: 11 lancets (TRUEPLUS LANCETS) 30 gauge misc Test twice daily Dx: 250.02 Disp: 200 Each Rfl: 4 No current facility-administered medications for this visit. FAMILIA/ARB MED PRESCRIBED due on 01/14/1978 DTAP,TDAP,TD(1 - Tdap) due on 02/08/2007 MAMMOGRAM due on 11/16/2016 EXAM: BP 132/70 Pulse 88 Temp 36.5 ?C (97.7 ?F) (Tympanic) Resp 20 Wt (!) 169.2 kg (373 lb) LMP 12/11/2008 BMI 70.32 kg/m? Pleasant Morbidly obese woman in no acute distress. Alert and oriented all spheres. Normal affect and cognition. Speech normal. No deficits to learning or comprehension. Skin warm, dry, pink to lips and nailbeds. Normal turgor. patient is a fairly large skin tag on her left buttocks with a mushroom type of head approximately 2-1/2 cm across with a wide base. Respirations regular and unlabored. HEENT WNL. TM's clear. Nose and oropharynx free from injection or lesion. No cervical lymph nodes. Thyroid non-tender, no masses Chest CTA. HRRR without murmur or gallop. Extrem: no clubbing, cyanosis, edema. Extremities are warm and pink with prompt capillary refill. ASSESSMENT/PLAN: 1. Morbid obesity (HCC) - ICD9: 278.01, ICD10: E66.01 (primary diagnosis) Plan is to consider surgery in mid February. Patient is continuing to lose weight for which she is complemented. 2. Obstructive sleep apnea - ICD9: 327.23, ICD10: G47.33 Patient is compliant with C Pap 3. Anxiety state - ICD9: 300.00, ICD10: F41.1 Currently controlled, no change in medications 4. Essential hypertension, benign - ICD9: 401.1, ICD10: I10 - good control - Recommended regular aerobic exercise. - Recommend home blood pressure monitoring, to bring results in on next visit - Goal of BP <130/80 5. Gastroesophageal reflux disease without esophagitis - ICD9: 530.81, ICD10: K21.9 - Continue ranitidine. 6. Congestive heart failure, unspecified HF chronicity, unspecified heart failure type (HCC) - ICD9: 428.0, ICD10: I50.9 No evidence of active congestive heart failure. Continue diuretics. 7. Pain disorder with psychological factors - ICD9: 307.80, ICD10: F45.41 Patient continues on hydrocodone which currently is managing pain. She seems to be doing well on gabapentin and was Cymbalta. In general still has low back pain and leg pain but feels its tolerable. 8. Type 2 diabetes mellitus without complication, unspecified whether group home insulin use (HCC) - ICD9: 250.00, ICD10: E11.9 Controlled. - Continue current medications Follow-up in 3 months after surgery. Patient (guardian) expressed understanding of instructions and agrees with plan. M Angeline Abbasi PA-C Referring Provider: SELF [[id number]] Allergies As of Date: 01/02/2018 Noted Allergy Reaction LYRICA (PREGABALIN) 08/05/2012 10 - Anaphylaxis Comments: Not sure if accurate. Can take gabapentin. Patient is unsure of reaction. ACCUPRIL (QUINAPRIL HCL) 08/12/2005 5 - Intolerance Comments: dizziness AMLODIPINE 04/24/2008 7 - Swelling Comments: Leg edema ATENOLOL 09/29/2010 7 - Swelling ATORVASTATIN 11/01/2017 5 - Intolerance Comments: Muscle cramps and weakness EFFEXOR (VENLAFAXINE HCL) 09/22/2005 Comments: swelling high blood pressure JANUVIA (SITAGLIPTIN) 09/21/2011 8 - GI Upset 14 - Other: See Comments Comments: Patient states she couldn't eat METOPROLOL 09/21/2009 7 - Swelling MOBIC (MELOXICAM) 08/12/2005 8 - GI Upset PROZAC (FLUOXETINE HCL) 08/12/2005 5 - Intolerance Comments: tremor RISPERIDONE 12/22/2009 1 - Mental Status Change SEROQUEL (QUETIAPINE FUMARATE) 10/05/2006 Comments: hypertension,swelling VANCOMYCIN 08/10/2017 9 - Itching 14 - Other: See Comments Comments: red all over VIOXX (ROFECOXIB) 08/12/2005 8 - GI Upset WELLBUTRIN (BUPROPION HCL) 08/12/2005 5 - Intolerance Comments: nightmares Date Reviewed: 01/02/2018 Reviewed by: Kate Brunner LPN - Fully Assessed Reason for Visit: 2 month follow up [Other] Primary Visit Diagnosis:Morbid obesity (HCC) [E66.01] Other Visit Diagnoses:Obstructive sleep apnea [G47.33] Anxiety state [F41.1] Essential hypertension, benign [I10] Gastroesophageal reflux disease without esophagitis [K21.9] Congestive heart failure, unspecified HF chronicity, unspecified heart failure type ([facility]) [I50.9] Pain disorder with psychological factors [F45.41] Type 2 diabetes mellitus without complication, unspecified whether computer terminal operator insulin use ([facility]) [E11.9] Prescriptions as of 01/02/2018 Sig: BACLOFEN 10 MG TABLET take 1 tablet by mouth twice * CHOLECALCIFEROL (VITAMIN D3) * Take 1 tablet by mouth once e* POTASSIUM CHLORIDE ER 10 MEQ * Take 1 tablet by mouth once d* POLYETHYLENE GLYCOL 3350 17 G* Take 17 g by mouth once daily. INSULIN GLARGINE (U-100) 100 * Inject 30 Units subcutaneousl* GABAPENTIN 300 MG CAPSULE Take 1 capsule by mouth twice* NABUMETONE 500 MG TABLET Take 1 tablet by mouth once d* NYSTATIN 100,000 UNIT/GRAM TO* Apply 1 application to affect* LINAGLIPTIN 5 MG TABLET Take 1 tablet by mouth once d* SPIRONOLACTONE 25 MG TABLET Take 1 tablet by mouth once d* RANITIDINE 150 MG TABLET Take 1 tablet by mouth twice * FUROSEMIDE 20 MG TABLET Take 1 tablet by mouth once d* DULOXETINE 60 MG CAPSULE,JODI* Take 1 capsule by mouth once * PRIMIDONE 50 MG TABLET TAKE ONE TABLET ONCE DAILY AT* HYDROCODONE 5 MG-ACETAMINOPHE* TAKE ONE TABLET TWICE DAILY TRAZODONE 50 MG TABLET Take 0.5 tablets by mouth padmini* ARIPIPRAZOLE 10 MG TABLET Take 1 tablet by mouth once d* NITROGLYCERIN 0.4 MG SUBLINGU* Dissolve 1 tablet under the t* ASPIRIN 81 MG TABLET,DELAYED * Take 1 tablet by mouth once d* BLOOD SUGAR DIAGNOSTIC STRIPS Test blood sugars up to 4 tiara* BLOOD-GLUCOSE METER KIT Glucose Meter of Choice - Kit* PEN NEEDLE, DIABETIC 32 GAUGE* Use one needle for each dose.* LANCETS 30 GAUGE Test twice daily Dx: 250.02 Problem List As Of Date 01/02/2018 Noted Resolved Major depressive disorder, recurrent episode, u*INVALID FOR*11/24/2014 Priority: A More... Anxiety state [F41.1] INVALID FOR* BENIGN HYPERTENSION [I10] INVALID FOR* OSTEOARTHROS NOS-UNSPEC [M19.90] INVALID FOR*02/07/2007 ABNL GLANDULAR PAP SMEAR CERVIX [R87.619] INVALID FOR* HYPERPROLACTINEMIA [E22.9] INVALID FOR* IRREGULAR MENSTRUATION [N92.6] INVALID FOR* ESOPHAGEAL REFLUX [K21.9] INVALID FOR* ACUTE GASTRITIS W/O HEMORRHAGE [K29.00] INVALID FOR*02/07/2007 DIAPHRAGMATIC HERNIA [K44.9] INVALID FOR* Unspecified gastritis and gastroduodenitis with*INVALID FOR*07/24/2016 Localized osteoarthrosis not specified whether *INVALID FOR*07/24/2016 Priority: A More... Pain in joint, site unspecified [M25.50] INVALID FOR*07/24/2016 Routine general medical examination at a health*INVALID FOR*11/29/2011 Class: Chronic More... Routine gynecological examination [Z01.419] INVALID FOR*11/29/2011 Class: Chronic More... More... Morbid obesity [E66.01] INVALID FOR* Priority: Very Severe Hyperprolactinemia [E22.1] INVALID FOR*01/30/2012 Obstructive sleep apnea [G47.33] INVALID FOR* Priority: Severe More... Medication side effects [T88.7XXA] INVALID FOR*08/10/2017 SVT (supraventricular tachycardia) [I47.1] Priority: A Type II or unspecified type diabetes mellitus w*INVALID FOR*04/10/2012 Priority: Moderate More... Congestive heart failure [I50.9] INVALID FOR* Spondylolisthesis [M43.10] INVALID FOR* Lumbar facet arthropathy [M47.816] INVALID FOR* DDD (degenerative disc disease), lumbar [M51.36]INVALID FOR* Diabetes mellitus [E11.9] INVALID FOR*11/24/2014 DDD (degenerative disc disease), cervical [M50.*INVALID FOR* DM (diabetes mellitus) (HCC) [E11.9] INVALID FOR* PMB (postmenopausal bleeding) [N95.0] INVALID FOR* Dysthymia [F34.1] INVALID FOR* Major depressive disorder, recurrent episode, m*INVALID FOR* More... Pain disorder with psychological factors [F45.4*INVALID FOR* Diffuse myofascial pain syndrome [M79.18] INVALID FOR* Bilateral primary osteoarthritis of knee [M17.0]INVALID FOR* Obesity, Class III, BMI >= 40 [E66.01] INVALID FOR*10/20/2017 Liver disease [K76.9] INVALID FOR* More... Umbilical hernia without obstruction and withou*INVALID FOR* More... Medications Discontinued During This Encounter clindamycin (CLEOCIN) 150 mg capsule 40 c* 0 11/02/2017 01/02/2018 Class: Med Update Route: ORAL Sig: Take 1 capsule by mouth four times daily. Disc: Reason for discontinue is not on file. Encounter Status:Closed by Sanjay ABBASI PA-C on 01/02/18 PROGRESS Observed: 12/26/2017 Status: COMPLETED Source: [place] 10:30 AM [facility] [place] REPOSITORY O ID: [id number] Author: Viviana Pope (Pharmacist) Service: (none) Author Type: Pharmacist Type: Progress Notes Filed: 12/26/2017 12:28 PM Note Text: TELEPHONIC ENCOUNTER Patient consents to pharmacy collaborative practice agreement. REASON FOR CONSULT: DM? GOALS: A1c <?7% CONSULTING PROVIDER: Dr. Herbert?? Date of Consult: 06/2017 Kathleen Khan is a 57 year old female was last seen by PCP, Dr. Vincent Herbert MD on 12/17/17 - no med changes made. Subjective: Patient is presenting today for f/u pharmacotherapy management appointment for diabetes. Patient was unavailable to talk at the scheduled time of 10:30 this AM - patient was very apologetic that she was out of the house and missed the call. At last PharmD visit (telephonic appt) on 10/24, atorvastatin 20mg daily was started for primary prevention. INTERIM HISTORY: Patient called PCP on 12/19 - reports she replaced several meals with shakes to prepare for weight loss surgery. Blood sugars dropped (90-130) and patient held insulin. Dr. Herbert advised patient to not hold insulin unless BG <80. Reports things are going really well Is on a diet with 2 shakes/day with small meal Bariatric surgery not yet scheduled - likely end of February Patient reports checking her BGs up to 3-4x/day because of concern for lows given recent dietary changes Patient says she is running out of test strips early because current script is only written for 2 tests daily Requesting refill of test strips with new instructions Patient is concerned about taking insulin if HS readings are <100 Patient states PCP told her not to skip her insulin shot if BGs are <80, but patient still concerned about lows Patient reports not taking statin Said she experienced side effects after 1 week then stopped it Says she spoke with PCP about this She can't remember what her sx were Past DM medications: Metformin IR and ER - GI intolerance (had been on it for years and tolerated it well but then it suddenly it started causing diarrhea; has tried getting back on metformin about 3 times since then) Glimepiride 2mg daily (self-stopped) ? Current DM Medications: Insulin glargine (Basaglar) 30?units QHS Linagliptin 5mg QAM ? Current HTN Medications: Furosemide 20mg once daily Spironolactone 25mg once daily Preventative Medications: ? On FAMILIA/ARB: No ? On Statin: Yes ? On ASA: Yes ROS: ? Patient denies CP, SOB, ARAIZA, blurred vision, dizziness or lightheadedness ? Patient denies symptoms of hypoglycemia (sweating, anxiety, palpitations, hunger, and tremor) ? Patient denies symptoms of hyperglycemia (polyuria, polydipsia, polyphagia) ? Patient denies potential medication adverse effects DIET/EXERCISE/SOCIAL Hx: ? Reports that she has replaced 2 meals/day with shakes to prep for weight loss surgery MEDICATIONS: ? Pill bottles are not present. ? Adherence: denies missed doses. ? Pharmacy: [facility] ? Rx coverage: [employer] ? Affordability: no isues ? Diabetes supplies: [facility] brand ? Organization System: none ACTIVE PROBLEM LIST Anxiety State Essential Hypertension, Benign ABNL GLANDULAR PAP SMEAR CERVIX HYPERPROLACTINEMIA Irregular Menstrual Cycle Esophageal Reflux Diaphragmatic Hernia Without Mention of Obstruction Or Gangrene Morbid Obesity (Hcc) Obstructive Sleep Apnea Svt (Supraventricular Tachycardia) (Hcc) Congestive Heart Failure (Hcc) Spondylolisthesis Lumbar Facet Arthropathy Ddd (Degenerative Disc Disease), Lumbar Ddd (Degenerative Disc Disease), Cervical Dm (Diabetes Mellitus) (Hcc) Pmb (Postmenopausal Bleeding) Dysthymia Major depressive disorder, recurrent episode, moderate (HCC) Pain Disorder With Psychological Factors Diffuse Myofascial Pain Syndrome Bilateral Primary Osteoarthritis of Knee Liver Disease Umbilical Hernia Without Obstruction and Without Gangrene PAST MEDICAL HISTORY Diagnosis Date - Abnormal glandular Papanicolaou smear of cervix 05/30/05 ABNL GLANDULAR PAP SMEAR CERVIX - Acute gastritis without mention of hemorrhage - Anxiety state, unspecified - Arrhythmia - Chronic cholecystitis - Chronic obstructive pulmonary disease (COPD) ([facility]) - Congestive heart failure (HCC) 10/03/2011 - Diabetes ([facility]) - diabetes II 2010 - Diaphragmatic hernia without mention of obstruction or gangrene - Dysthymic disorder Depression (non-psychotic) - Esophageal reflux - Essential hypertension, benign - Generalized OA - Localized osteoarthrosis not specified whether primary or secondary, lower leg - Major depressive disorder, recurrent episode - Mucous polyp of cervix 07/19/05 - Other and unspecified anterior pituitary hyperfunction 10/13/05 elevated prolactin level-was normal in 2011 - PMH - PAST MEDICAL HISTORY OF sleep apnea - PMH - PAST MEDICAL HISTORY OF sleep apnea - SVT (supraventricular tachycardia) (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 ALLERGIES Allergen Reactions - Lyrica [Pregabalin] Anaphylaxis Not sure if accurate. Can take gabapentin. Patient is unsure of reaction. - Accupril [Quinapril* Intolerance dizziness - Amlodipine Swelling Leg edema - Atenolol Swelling - Atorvastatin Intolerance Muscle cramps and weakness - Effexor [Venlafaxin* swelling high blood pressure - Januvia [Sitaglipti* GI Upset, Other: See Comments Patient states she couldn't eat - Metoprolol Swelling - Mobic [Meloxicam] GI Upset - Prozac [Fluoxetine * Intolerance tremor - Risperidone Mental Status Change - Seroquel [Quetiapin* hypertension,swelling - Vancomycin Itching, Other: See Comments red all over - Vioxx [Rofecoxib] GI Upset - Wellbutrin [Bupropi* Intolerance nightmares Medication List Medication Directions Comments Action/Plan ARIPiprazole (ABILIFY) 10 mg tablet Take 1 tablet by mouth once daily. aspirin, enteric coated (ECOTRIN LOW STRENGTH) 81 mg EC tablet Take 1 tablet by mouth once daily. baclofen (LIORESAL) 10 mg tablet Take 1 tablet by mouth twice daily. blood sugar diagnostic (BLOOD GLUCOSE TEST) test strip Test blood sugar(s) 2 times daily. Dx: Type 2 DM - Controlled E11.9 Insulin: No Blood-Glucose Meter monitoring kit Glucose Meter of Choice - Kit - Dx: Type 2 DM - Controlled E11.9 Use twice daily as directed cholecalciferol, vitamin D3, 50,000 unit tab Take 1 tablet by mouth once each week for 8 doses. clindamycin (CLEOCIN) 150 mg capsule Take 1 capsule by mouth four times daily. DULoxetine (CYMBALTA) 60 mg capsule Take 1 capsule by mouth once daily. furosemide (LASIX) 20 mg tablet Take 1 tablet by mouth once daily. gabapentin (NEURONTIN) 300 mg capsule Take 1 capsule by mouth twice daily for 90 days. HYDROcodone-acetaminophen (NORCO) 5-325 mg per tablet TAKE ONE TABLET TWICE DAILY insulin glargine (BASAGLAR KWIKPEN U-100 INSULIN) 100 unit/mL (3 mL) inpn Inject 30 Units subcutaneously daily at bedtime. Insulin Hamlin, Disposable, (BD ULTRA-FINE MADI PEN NEEDLE) 32 gauge x ndle Use one needle for each dose. 1/day. lancets (TRUEPLUS LANCETS) 30 gauge misc Test twice daily Dx: 250.02 linagliptin (TRADJENTA) 5 mg tab Take 1 tablet by mouth once daily. nabumetone (RELAFEN) 500 mg tablet Take 1 tablet by mouth once daily. TAKE WITH FOOD nitroglycerin sublingual (NITROQUICK) 0.4 mg SL tablet Dissolve 1 tablet under the tongue as needed. FOR CHEST PAIN. IF NO RELIEF CALL 911 nystatin (MYCOSTATIN) cream Apply 1 application to affected area twice daily. polyethylene glycol 3350 (MIRALAX, GLYCOLAX) 17 gram/dose powder Take 17 g by mouth once daily. potassium chloride ER (K-DUR, KLOR-CON) 10 mEq tablet Take 1 tablet by mouth once daily. primidone (MYSOLINE) 50 mg tablet TAKE ONE TABLET ONCE DAILY AT BEDTIME ranitidine (ZANTAC) 150 mg tablet Take 1 tablet by mouth twice daily. spironolactone (ALDACTONE) 25 mg tablet Take 1 tablet by mouth once daily. traZODone (DESYREL) 50 mg tablet Take 0.5 tablets by mouth daily at bedtime. TRUETEST TEST STRIPS test strip TEST twice a day GLYCEMIC CONTROL: ? Glucometer present at visit: No ? SMBG?s: Date Fasting AM 2 hr PP Before Lunch 2 hr PP Before Dinner 2 hr PP Bedtime 12/26 120 12/25 114 130 12/24 112 137 12/23 115 137 12/22 116 111 12/21 110 140 12/20 102 112 12/19 93 115 12/18 126 103 12/17 106 89 (skipped insulin shot) ? Hypoglycemia: felt low with 89 at HS - skipped insulin; denies any sugars <70 ? How corrected: glucose tabs Objective: VITALS: None taken Last 3 Encounter BP Readings: Date: BP: 12/17/2017 122/78 12/13/2017 144/84 11/02/2017 130/68 Wt: 176.4 kg (389 lb) BMI: 73.50 kg/(m2) LABS Lab Results Component Value Date HBA1C 6.8 10/20/2017 HBA1C 7.8 07/20/2017 HBA1C 6.7 07/24/2016 CMP: Glucose 249 08/10/2017 BUN 18 08/10/2017 Creatinine 0.63 08/10/2017 Sodium 137 08/10/2017 Potassium 4.3 08/10/2017 Chloride 94 08/10/2017 CO2 28 08/10/2017 Protein, Total 7.3 07/20/2017 Albumin 4.3 07/20/2017 Calcium 9.8 08/10/2017 Alkaline Phosphatase 173 07/20/2017 Bilirubin, Total 0.4 07/20/2017 AST 17 07/20/2017 ALT 15 07/20/2017 Estimated Creatinine Clearance: 154.6 mL/min (based on SCr of 0.63 mg/dL). Last Lipid Panel Lab Results Component Value Date CHOL 174 07/20/2017 Lab Results Component Value Date HDL 42 07/20/2017 Lab Results Component Value Date LDL 92 07/20/2017 Lab Results Component Value Date TG 199 07/20/2017 10-year ASCVD risk: 6% Albumin/Creat Ratio (mg/g) Date Value 02/24/2011 3 PHARMACOTHERAPY ASSESSMENT/PLAN: 1. Type 2 diabetes mellitus without complication, unspecified whether computer terminal operator insulin use (HCC) - ICD9: 250.00, ICD10: E11.9 A1c goal <7%; controlled based on last A1c (6.8%); SMBG low shows FBGs are at goal of 80-130 and PPGs are at goal of <180; patient has drastically changed diet to prepare for weight loss surgery; patient not experiencing hypoglycemic episodes of BG <70 but occasionally feels low when BGs are in the 80s; PharmD educated patient on appropriate management of hypoglycemia; patient feels uncomfortable administering insulin at night if HS readings are <100; PharmD educated patient on the profile of basal insulin and discussed how it is long acting; PharmD also encouraged her to eat a small snacks of ~15g carbs with protein (or just eat a snack of protein) prior to bed if BGs are <100, but patient says she can't eat more due to her current diet restrictions; in future, can consider switching insulin injection to QAM for patient comfort if she continues being nervous about night-time injections and is skipping doses of insulin - CONTINUE insulin glargine 30 units QHS and linagliptin 5mg daily - Ordered test strips at patient request - Due for A1c and BMP next month; due for urine albumin/creatinine (lab already ordered) Patient indicated for moderate-intensity statin given DM and ASCVD risk <7.5%; patient was started on atorvastatin 20mg daily in October 2017 but developed muscle cramps/weakness so it was discontinued; in future, to consider trialling patient on a different statin that is less likely to cause myalgias such as pravastatin; lipids WNL and appropriate to continue without therapy for now Patient does not have f/u appt scheduled with PCP - will address at next visit. Patient to return to clinic for PharmD f/u on 02/06. Patient verbalized understanding of instructions. Viviana Pope PharmD, [facility] Primary Care Clinical Pharmacist [place] CNOV Observed: 12/26/2017 Status: COMPLETED Source: [place] 10:30 AM [facility] REPOSITORY Office Visit (PHMEWO) KATHLEEN KHAN V ([id number]) 1960 F Date Time Provider Department 12/26/17 10:30 AM LINDSEY (PHARMACIST)VIVIANA During your visit today, we recorded the following information about you: RADHAMES ROCK 12/26/2017 12:28 PM Signed TELEPHONIC ENCOUNTER Patient consents to pharmacy collaborative practice agreement. REASON FOR CONSULT: DM? GOALS: A1c <?7% CONSULTING PROVIDER: Dr. Herbert?? Date of Consult: 06/2017 Kathleen Khan is a 57 year old female was last seen by PCP, Dr. Vincent Herbert MD on 12/17/17 - no med changes made. Subjective: Patient is presenting today for f/u pharmacotherapy management appointment for diabetes. Patient was unavailable to talk at the scheduled time of 10:30 this AM - patient was very apologetic that she was out of the house and missed the call. At last PharmD visit (telephonic appt) on 10/24, atorvastatin 20mg daily was started for primary prevention. INTERIM HISTORY: Patient called PCP on 12/19 - reports she replaced several meals with shakes to prepare for weight loss surgery. Blood sugars dropped (90- 130) and patient held insulin. Dr. Herbert advised patient to not hold insulin unless BG <80. Reports things are going really well Is on a diet with 2 shakes/day with small meal Bariatric surgery not yet scheduled - likely end of February Patient reports checking her BGs up to 3-4x/day because of concern for lows given recent dietary changes Patient says she is running out of test strips early because current script is only written for 2 tests daily Requesting refill of test strips with new instructions Patient is concerned about taking insulin if HS readings are <100 Patient states PCP told her not to skip her insulin shot if BGs are <80, but patient still concerned about lows Patient reports not taking statin Said she experienced side effects after 1 week then stopped it Says she spoke with PCP about this She can't remember what her sx were Past DM medications: Metformin IR and ER - GI intolerance (had been on it for years and tolerated it well but then it suddenly it started causing diarrhea; has tried getting back on metformin about 3 times since then) Glimepiride 2mg daily (self-stopped) ? Current DM Medications: Insulin glargine (Basaglar) 30?units QHS Linagliptin 5mg QAM ? Current HTN Medications: Furosemide 20mg once daily Spironolactone 25mg once daily Preventative Medications: ? On FAMILIA/ARB: No ? On Statin: Yes ? On ASA: Yes ROS: ? Patient denies CP, SOB, ARAIZA, blurred vision, dizziness or lightheadedness ? Patient denies symptoms of hypoglycemia (sweating, anxiety, palpitations, hunger, and tremor) ? Patient denies symptoms of hyperglycemia (polyuria, polydipsia, polyphagia) ? Patient denies potential medication adverse effects DIET/EXERCISE/SOCIAL Hx: ? Reports that she has replaced 2 meals/day with shakes to prep for weight loss surgery MEDICATIONS: ? Pill bottles are not present. ? Adherence: denies missed doses. ? Pharmacy: [facility] ? Rx coverage: [employer] ? Affordability: no isues ? Diabetes supplies: [facility] brand ? Organization System: none ACTIVE PROBLEM LIST Anxiety State Essential Hypertension, Benign ABNL GLANDULAR PAP SMEAR CERVIX HYPERPROLACTINEMIA Irregular Menstrual Cycle Esophageal Reflux Diaphragmatic Hernia Without Mention of Obstruction Or Gangrene Morbid Obesity (Hcc) Obstructive Sleep Apnea Svt (Supraventricular Tachycardia) ([facility]) Congestive Heart Failure ([facility]) Spondylolisthesis Lumbar Facet Arthropathy Ddd (Degenerative Disc Disease), Lumbar Ddd (Degenerative Disc Disease), Cervical Dm (Diabetes Mellitus) ([facility]) Pmb (Postmenopausal Bleeding) Dysthymia Major depressive disorder, recurrent episode, moderate ([facility]) Pain Disorder With Psychological Factors Diffuse Myofascial Pain Syndrome Bilateral Primary Osteoarthritis of Knee Liver Disease Umbilical Hernia Without Obstruction and Without Gangrene PAST MEDICAL HISTORY Diagnosis Date - Abnormal glandular Papanicolaou smear of cervix 05/30/05 ABNL GLANDULAR PAP SMEAR CERVIX - Acute gastritis without mention of hemorrhage - Anxiety state, unspecified - Arrhythmia - Chronic cholecystitis - Chronic obstructive pulmonary disease (COPD) ([facility]) - Congestive heart failure ([facility]) 10/03/2011 - Diabetes ([facility]) - diabetes II 2010 - Diaphragmatic hernia without mention of obstruction or gangrene - Dysthymic disorder Depression (non-psychotic) - Esophageal reflux - Essential hypertension, benign - Generalized OA - Localized osteoarthrosis not specified whether primary or secondary, lower leg - Major depressive disorder, recurrent episode - Mucous polyp of cervix 07/19/05 - Other and unspecified anterior pituitary hyperfunction 10/13/05 elevated prolactin level-was normal in 2011 - PMH - PAST MEDICAL HISTORY OF sleep apnea - PMH - PAST MEDICAL HISTORY OF sleep apnea - SVT (supraventricular tachycardia) (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 ALLERGIES Allergen Reactions - Lyrica [Pregabalin] Anaphylaxis Not sure if accurate. Can take gabapentin. Patient is unsure of reaction. - Accupril [Quinapril* Intolerance dizziness - Amlodipine Swelling Leg edema - Atenolol Swelling - Atorvastatin Intolerance Muscle cramps and weakness - Effexor [Venlafaxin* swelling high blood pressure - Januvia [Sitaglipti* GI Upset, Other: See Comments Patient states she couldn't eat - Metoprolol Swelling - Mobic [Meloxicam] GI Upset - Prozac [Fluoxetine * Intolerance tremor - Risperidone Mental Status Change - Seroquel [Quetiapin* hypertension,swelling - Vancomycin Itching, Other: See Comments red all over - Vioxx [Rofecoxib] GI Upset - Wellbutrin [Bupropi* Intolerance nightmares Medication List Medication Directions Comments Action/Plan ARIPiprazole (ABILIFY) 10 mg tablet Take 1 tablet by mouth once daily. aspirin, enteric coated (ECOTRIN LOW STRENGTH) 81 mg EC tablet Take 1 tablet by mouth once daily. baclofen (LIORESAL) 10 mg tablet Take 1 tablet by mouth twice daily. blood sugar diagnostic (BLOOD GLUCOSE TEST) test strip Test blood sugar(s) 2 times daily. Dx: Type 2 DM - Controlled E11.9 Insulin: No Blood-Glucose Meter monitoring kit Glucose Meter of Choice - Kit - Dx: Type 2 DM - Controlled E11.9 Use twice daily as directed cholecalciferol, vitamin D3, 50,000 unit tab Take 1 tablet by mouth once each week for 8 doses. clindamycin (CLEOCIN) 150 mg capsule Take 1 capsule by mouth four times daily. DULoxetine (CYMBALTA) 60 mg capsule Take 1 capsule by mouth once daily. furosemide (LASIX) 20 mg tablet Take 1 tablet by mouth once daily. gabapentin (NEURONTIN) 300 mg capsule Take 1 capsule by mouth twice daily for 90 days. HYDROcodone-acetaminophen (NORCO) 5-325 mg per tablet TAKE ONE TABLET TWICE DAILY insulin glargine (BASAGLAR KWIKPEN U-100 INSULIN) 100 unit/mL (3 mL) inpn Inject 30 Units subcutaneously daily at bedtime. Insulin [place]lin, Disposable, (BD ULTRA-FINE MADI PEN NEEDLE) 32 gauge x ndle Use one needle for each dose. 1/day. lancets (TRUEPLUS LANCETS) 30 gauge misc Test twice daily Dx: 250.02 linagliptin (TRADJENTA) 5 mg tab Take 1 tablet by mouth once daily. nabumetone (RELAFEN) 500 mg tablet Take 1 tablet by mouth once daily. TAKE WITH FOOD nitroglycerin sublingual (NITROQUICK) 0.4 mg SL tablet Dissolve 1 tablet under the tongue as needed. FOR CHEST PAIN. IF NO RELIEF CALL 911 nystatin (MYCOSTATIN) cream Apply 1 application to affected area twice daily. polyethylene glycol 3350 (MIRALAX, GLYCOLAX) 17 gram/dose powder Take 17 g by mouth once daily. potassium chloride ER (K-DUR, KLOR-CON) 10 mEq tablet Take 1 tablet by mouth once daily. primidone (MYSOLINE) 50 mg tablet TAKE ONE TABLET ONCE DAILY AT BEDTIME ranitidine (ZANTAC) 150 mg tablet Take 1 tablet by mouth twice daily. spironolactone (ALDACTONE) 25 mg tablet Take 1 tablet by mouth once daily. traZODone (DESYREL) 50 mg tablet Take 0.5 tablets by mouth daily at bedtime. TRUETEST TEST STRIPS test strip TEST twice a day GLYCEMIC CONTROL: ? Glucometer present at visit: No ? SMBG?s: Date Fasting AM 2 hr PP Before Lunch 2 hr PP Before Dinner 2 hr PP Bedtime 12/26 120 12/25 114 130 12/24 112 137 12/23 115 137 12/22 116 111 12/21 110 140 12/20 102 112 12/19 93 115 12/18 126 103 12/17 106 89 (skipped insulin shot) ? Hypoglycemia: felt low with 89 at HS - skipped insulin; denies any sugars <70 ? How corrected: glucose tabs Objective: VITALS: None taken Last 3 Encounter BP Readings: Date: BP: 12/17/2017 122/78 12/13/2017 144/84 11/02/2017 130/68 Wt: 176.4 kg (389 lb) BMI: 73.50 kg/(m2) LABS Lab Results Component Value Date HBA1C 6.8 10/20/2017 HBA1C 7.8 07/20/2017 HBA1C 6.7 07/24/2016 CMP: Glucose 249 08/10/2017 BUN 18 08/10/2017 Creatinine 0.63 08/10/2017 Sodium 137 08/10/2017 Potassium 4.3 08/10/2017 Chloride 94 08/10/2017 CO2 28 08/10/2017 Protein, Total 7.3 07/20/2017 Albumin 4.3 07/20/2017 Calcium 9.8 08/10/2017 Alkaline Phosphatase 173 07/20/2017 Bilirubin, Total 0.4 07/20/2017 AST 17 07/20/2017 ALT 15 07/20/2017 Estimated Creatinine Clearance: 154.6 mL/min (based on SCr of 0.63 mg/dL). Last Lipid Panel Lab Results Component Value Date CHOL 174 07/20/2017 Lab Results Component Value Date HDL 42 07/20/2017 Lab Results Component Value Date LDL 92 07/20/2017 Lab Results Component Value Date TG 199 07/20/2017 10-year ASCVD risk: 6% Albumin/Creat Ratio (mg/g) Date Value 02/24/2011 3 PHARMACOTHERAPY ASSESSMENT/PLAN: 1. Type 2 diabetes mellitus without complication, unspecified whether group home insulin use (HCC) - ICD9: 250.00, ICD10: E11.9 A1c goal <7%; controlled based on last A1c (6.8%); SMBG low shows FBGs are at goal of 80-130 and PPGs are at goal of <180; patient has drastically changed diet to prepare for weight loss surgery; patient not experiencing hypoglycemic episodes of BG <70 but occasionally feels low when BGs are in the 80s; PharmD educated patient on appropriate management of hypoglycemia; patient feels uncomfortable administering insulin at night if HS readings are <100; PharmD educated patient on the profile of basal insulin and discussed how it is long acting; PharmD also encouraged her to eat a small snacks of ~15g carbs with protein (or just eat a snack of protein) prior to bed if BGs are <100, but patient says she can't eat more due to her current diet restrictions; in future, can consider switching insulin injection to QAM for patient comfort if she continues being nervous about night-time injections and is skipping doses of insulin - CONTINUE insulin glargine 30 units QHS and linagliptin 5mg daily - Ordered test strips at patient request - Due for A1c and BMP next month; due for urine albumin/creatinine (lab already ordered) Patient indicated for moderate-intensity statin given DM and ASCVD risk <7.5%; patient was started on atorvastatin 20mg daily in October 2017 but developed muscle cramps/weakness so it was discontinued; in future, to consider trialling patient on a different statin that is less likely to cause myalgias such as pravastatin; lipids WNL and appropriate to continue without therapy for now Patient does not have f/u appt scheduled with PCP - will address at next visit. Patient to return to clinic for PharmD f/u on 02/06. Patient verbalized understanding of instructions. Viviana Pope, PharmD, [facility] Primary Care Clinical Pharmacist [facility] Referring Provider: VINCENT HERBERT [[id number]] Allergies As of Date: 12/26/2017 Noted Allergy Reaction LYRICA (PREGABALIN) 08/05/2012 10 - Anaphylaxis Comments: Not sure if accurate. Can take gabapentin. Patient is unsure of reaction. ACCUPRIL (QUINAPRIL HCL) 08/12/2005 5 - Intolerance Comments: dizziness AMLODIPINE 04/24/2008 7 - Swelling Comments: Leg edema ATENOLOL 09/29/2010 7 - Swelling ATORVASTATIN 11/01/2017 5 - Intolerance Comments: Muscle cramps and weakness EFFEXOR (VENLAFAXINE HCL) 09/22/2005 Comments: swelling high blood pressure JANUVIA (SITAGLIPTIN) 09/21/2011 8 - GI Upset 14 - Other: See Comments Comments: Patient states she couldn't eat METOPROLOL 09/21/2009 7 - Swelling MOBIC (MELOXICAM) 08/12/2005 8 - GI Upset PROZAC (FLUOXETINE HCL) 08/12/2005 5 - Intolerance Comments: tremor RISPERIDONE 12/22/2009 1 - Mental Status Change SEROQUEL (QUETIAPINE FUMARATE) 10/05/2006 Comments: hypertension,swelling VANCOMYCIN 08/10/2017 9 - Itching 14 - Other: See Comments Comments: red all over VIOXX (ROFECOXIB) 08/12/2005 8 - GI Upset WELLBUTRIN (BUPROPION HCL) 08/12/2005 5 - Intolerance Comments: nightmares Date Reviewed: 12/17/2017 Reviewed by: Brittany Valencia LPN - Fully Assessed Reason for Visit: Allied Health Visit [5] Cmt: DM f/u Primary Visit Diagnosis:Type 2 diabetes mellitus without complication, unspecified whether group home insulin use (HCC) [E11.9] Order(s):blood sugar diagnostic (BLOOD GLUCOSE TEST) test stripTest blood sugars up to 4 times daily as directed. Dx: Type 2 DM - Controlled E11.9 Insulin: NoDisp: 100 StripRfl: 11 BASIC METABOLIC PNL [SQBMP] Order #: [id number] FUTURE HGB A1C [[id number]] Order #: [id number] FUTURE Prescriptions as of 12/26/2017 Sig: BLOOD SUGAR DIAGNOSTIC STRIPS Test blood sugars up to 4 tiara* CHOLECALCIFEROL (VITAMIN D3) * Take 1 tablet by mouth once e* POTASSIUM CHLORIDE ER 10 MEQ * Take 1 tablet by mouth once d* POLYETHYLENE GLYCOL 3350 17 G* Take 17 g by mouth once daily. INSULIN GLARGINE (U-100) 100 * Inject 30 Units subcutaneousl* BACLOFEN 10 MG TABLET Take 1 tablet by mouth twice * GABAPENTIN 300 MG CAPSULE Take 1 capsule by mouth twice* CLINDAMYCIN HCL 150 MG CAPSULE Take 1 capsule by mouth four * NABUMETONE 500 MG TABLET Take 1 tablet by mouth once d* BLOOD-GLUCOSE METER KIT Glucose Meter of Choice - Kit* NYSTATIN 100,000 UNIT/GRAM TO* Apply 1 application to affect* LINAGLIPTIN 5 MG TABLET Take 1 tablet by mouth once d* SPIRONOLACTONE 25 MG TABLET Take 1 tablet by mouth once d* RANITIDINE 150 MG TABLET Take 1 tablet by mouth twice * FUROSEMIDE 20 MG TABLET Take 1 tablet by mouth once d* DULOXETINE 60 MG CAPSULE,JODI* Take 1 capsule by mouth once * PRIMIDONE 50 MG TABLET TAKE ONE TABLET ONCE DAILY AT* PEN NEEDLE, DIABETIC 32 GAUGE* Use one needle for each dose.* HYDROCODONE 5 MG-ACETAMINOPHE* TAKE ONE TABLET TWICE DAILY LANCETS 30 GAUGE Test twice daily Dx: 250.02 TRAZODONE 50 MG TABLET Take 0.5 tablets by mouth padmini* ARIPIPRAZOLE 10 MG TABLET Take 1 tablet by mouth once d* NITROGLYCERIN 0.4 MG SUBLINGU* Dissolve 1 tablet under the t* ASPIRIN 81 MG TABLET,DELAYED * Take 1 tablet by mouth once d* Problem List As Of Date 12/26/2017 Noted Resolved Major depressive disorder, recurrent episode, u*INVALID FOR*11/24/2014 Priority: A More... Anxiety state [F41.1] INVALID FOR* BENIGN HYPERTENSION [I10] INVALID FOR* OSTEOARTHROS NOS-UNSPEC [M19.90] INVALID FOR*02/07/2007 ABNL GLANDULAR PAP SMEAR CERVIX [R87.619] INVALID FOR* HYPERPROLACTINEMIA [E22.9] INVALID FOR* IRREGULAR MENSTRUATION [N92.6] INVALID FOR* ESOPHAGEAL REFLUX [K21.9] INVALID FOR* ACUTE GASTRITIS W/O HEMORRHAGE [K29.00] INVALID FOR*02/07/2007 DIAPHRAGMATIC HERNIA [K44.9] INVALID FOR* Unspecified gastritis and gastroduodenitis with*INVALID FOR*07/24/2016 Localized osteoarthrosis not specified whether *INVALID FOR*07/24/2016 Priority: A More... Pain in joint, site unspecified [M25.50] INVALID FOR*07/24/2016 Routine general medical examination at a health*INVALID FOR*11/29/2011 Class: Chronic More... Routine gynecological examination [Z01.419] INVALID FOR*11/29/2011 Class: Chronic More... More... Morbid obesity [E66.01] INVALID FOR* Priority: Very Severe Hyperprolactinemia [E22.1] INVALID FOR*01/30/2012 Obstructive sleep apnea [G47.33] INVALID FOR* Priority: Severe More... Medication side effects [T88.7XXA] INVALID FOR*08/10/2017 SVT (supraventricular tachycardia) [I47.1] Priority: A Type II or unspecified type diabetes mellitus w*INVALID FOR*04/10/2012 Priority: Moderate More... Congestive heart failure [I50.9] INVALID FOR* Spondylolisthesis [M43.10] INVALID FOR* Lumbar facet arthropathy [M47.816] INVALID FOR* DDD (degenerative disc disease), lumbar [M51.36]INVALID FOR* Diabetes mellitus [E11.9] INVALID FOR*11/24/2014 DDD (degenerative disc disease), cervical [M50.*INVALID FOR* DM (diabetes mellitus) (HCC) [E11.9] INVALID FOR* PMB (postmenopausal bleeding) [N95.0] INVALID FOR* Dysthymia [F34.1] INVALID FOR* Major depressive disorder, recurrent episode, m*INVALID FOR* More... Pain disorder with psychological factors [F45.4*INVALID FOR* Diffuse myofascial pain syndrome [M79.18] INVALID FOR* Bilateral primary osteoarthritis of knee [M17.0]INVALID FOR* Obesity, Class III, BMI >= 40 [E66.01] INVALID FOR*10/20/2017 Liver disease [K76.9] INVALID FOR* More... Umbilical hernia without obstruction and withou*INVALID FOR* More... Prescriptions ordered this encounter Disp Refills Start End BLOOD SUGAR DIAGNOSTIC STRIPS 100 * 11 12/26/2017 Sig: Test blood sugars up to 4 times daily as directed. Dx: Type 2 DM - Controlled E11.9 Insulin: No Medications Discontinued During This Encounter TRUETEST TEST STRIPS test strip 100 * 11 02/18/2016 12/26/2017 Sig: TEST twice a day Disc: Reason for discontinue is not on file. blood sugar diagnostic (BLOOD GLUCOS* 100 * 11 02/22/2016 12/26/2017 Sig: Test blood sugar(s) 2 times daily. Dx: Type 2 DM - Controlled E11.9 Insulin: No Disc: Reason for discontinue is not on file. Encounter Status:Closed by LINDSEY (PHARMACIST)VIVIANA on 12/26/17 KENYA Observed: 12/20/2017 Status: COMPLETED Source: [place] 12:00 AM [facility] REPOSITORY Telephone ([employer]) KATHLEEN KHAN V ([id number]) 1960 F Date Time Provider Department 12/20/17 SHORTY ELIZONDO During your visit today, we recorded the following information about you: Luisa Cordova Psr 12/20/2017 4:36 PM Signed Patient called and states she needs cardiac clearance in order to have bariatric surgery. No opening until February. Ok to overbook? Please advise and we can call patient back to schedule. Thank you. Francisca James RN 12/20/2017 4:55 PM Addendum Please see previous phone note - pt still does not know when surgery is and Dr. Elizondo does not want to see her until closer to her surgery. Pt stated this procedure will not be until after the first of the year. First available is appropriate - do not double book. Pt can also be added to cancellation list Francisca Cordova Psr 12/21/2017 9:53 AM Signed Spoke with patient and scheduled appointment. Bariatric surgery not yet scheduled. Will not schedule surgery until she is cleared. Advised patient to call Dr Slater with appointment date with Dr Elizondo. Francisca James RN 12/21/2017 10:[address] Slater's office and talked to Seble. Per Seble pt does not need an apt with cardiology at this time until after the first of the year. Pt is just beginning the process of bariatric surgery and procedure will not be until after first of the year. Asked her to let us know if there was anything our office could do to help with process, she said they would notify us. Francisca James RN 12/21/2017 10:16 AM Signed Left message to call office. 12/21/2017 10:16 AM Francisca James RN 12/21/2017 10:17 AM Signed Left message to call office. 12/21/2017 10:17 AM Francisca James RN 12/21/2017 10:19 AM Signed Pt called, verified by name and birthdate. Patient notified of results and provider's instructions. Patient verbalizes understanding. Francisca James RN Allergies As of Date: 12/20/2017 Noted Allergy Reaction LYRICA (PREGABALIN) 08/05/2012 10 - Anaphylaxis Comments: Not sure if accurate. Can take gabapentin. Patient is unsure of reaction. ACCUPRIL (QUINAPRIL HCL) 08/12/2005 5 - Intolerance Comments: dizziness AMLODIPINE 04/24/2008 7 - Swelling Comments: Leg edema ATENOLOL 09/29/2010 7 - Swelling ATORVASTATIN 11/01/2017 5 - Intolerance Comments: Muscle cramps and weakness EFFEXOR (VENLAFAXINE HCL) 09/22/2005 Comments: swelling high blood pressure JANUVIA (SITAGLIPTIN) 09/21/2011 8 - GI Upset 14 - Other: See Comments Comments: Patient states she couldn't eat METOPROLOL 09/21/2009 7 - Swelling MOBIC (MELOXICAM) 08/12/2005 8 - GI Upset PROZAC (FLUOXETINE HCL) 08/12/2005 5 - Intolerance Comments: tremor RISPERIDONE 12/22/2009 1 - Mental Status Change SEROQUEL (QUETIAPINE FUMARATE) 10/05/2006 Comments: hypertension,swelling VANCOMYCIN 08/10/2017 9 - Itching 14 - Other: See Comments Comments: red all over VIOXX (ROFECOXIB) 08/12/2005 8 - GI Upset WELLBUTRIN (BUPROPION HCL) 08/12/2005 5 - Intolerance Comments: nightmares Date Reviewed: 12/17/2017 Reviewed by: Brittany Valencia LPN - Fully Assessed Reason for Visit: Appointment [186] Prescriptions as of 12/20/2017 Sig: POTASSIUM CHLORIDE ER 10 MEQ * Take 1 tablet by mouth once d* POLYETHYLENE GLYCOL 3350 17 G* Take 17 g by mouth once daily. INSULIN GLARGINE (U-100) 100 * Inject 30 Units subcutaneousl* BACLOFEN 10 MG TABLET Take 1 tablet by mouth twice * GABAPENTIN 300 MG CAPSULE Take 1 capsule by mouth twice* CLINDAMYCIN HCL 150 MG CAPSULE Take 1 capsule by mouth four * NABUMETONE 500 MG TABLET Take 1 tablet by mouth once d* BLOOD-GLUCOSE METER KIT Glucose Meter of Choice - Kit* NYSTATIN 100,000 UNIT/GRAM TO* Apply 1 application to affect* LINAGLIPTIN 5 MG TABLET Take 1 tablet by mouth once d* SPIRONOLACTONE 25 MG TABLET Take 1 tablet by mouth once d* RANITIDINE 150 MG TABLET Take 1 tablet by mouth twice * FUROSEMIDE 20 MG TABLET Take 1 tablet by mouth once d* DULOXETINE 60 MG CAPSULE,JODI* Take 1 capsule by mouth once * PRIMIDONE 50 MG TABLET TAKE ONE TABLET ONCE DAILY AT* PEN NEEDLE, DIABETIC 32 GAUGE* Use one needle for each dose.* HYDROCODONE 5 MG-ACETAMINOPHE* TAKE ONE TABLET TWICE DAILY BLOOD SUGAR DIAGNOSTIC STRIPS Test blood sugar(s) 2 times d* TRUETEST TEST STRIPS TEST twice a day LANCETS 30 GAUGE Test twice daily Dx: 250.02 TRAZODONE 50 MG TABLET Take 0.5 tablets by mouth padmini* ARIPIPRAZOLE 10 MG TABLET Take 1 tablet by mouth once d* NITROGLYCERIN 0.4 MG SUBLINGU* Dissolve 1 tablet under the t* ASPIRIN 81 MG TABLET,DELAYED * Take 1 tablet by mouth once d* Problem List As Of Date 12/20/2017 Noted Resolved Major depressive disorder, recurrent episode, u*INVALID FOR*11/24/2014 Priority: A More... Anxiety state [F41.1] INVALID FOR* BENIGN HYPERTENSION [I10] INVALID FOR* OSTEOARTHROS NOS-UNSPEC [M19.90] INVALID FOR*02/07/2007 ABNL GLANDULAR PAP SMEAR CERVIX [R87.619] INVALID FOR* HYPERPROLACTINEMIA [E22.9] INVALID FOR* IRREGULAR MENSTRUATION [N92.6] INVALID FOR* ESOPHAGEAL REFLUX [K21.9] INVALID FOR* ACUTE GASTRITIS W/O HEMORRHAGE [K29.00] INVALID FOR*02/07/2007 DIAPHRAGMATIC HERNIA [K44.9] INVALID FOR* Unspecified gastritis and gastroduodenitis with*INVALID FOR*07/24/2016 Localized osteoarthrosis not specified whether *INVALID FOR*07/24/2016 Priority: A More... Pain in joint, site unspecified [M25.50] INVALID FOR*07/24/2016 Routine general medical examination at a health*INVALID FOR*11/29/2011 Class: Chronic More... Routine gynecological examination [Z01.419] INVALID FOR*11/29/2011 Class: Chronic More... More... Morbid obesity [E66.01] INVALID FOR* Priority: Very Severe Hyperprolactinemia [E22.1] INVALID FOR*01/30/2012 Obstructive sleep apnea [G47.33] INVALID FOR* Priority: Severe More... Medication side effects [T88.7XXA] INVALID FOR*08/10/2017 SVT (supraventricular tachycardia) [I47.1] Priority: A Type II or unspecified type diabetes mellitus w*INVALID FOR*04/10/2012 Priority: Moderate More... Congestive heart failure [I50.9] INVALID FOR* Spondylolisthesis [M43.10] INVALID FOR* Lumbar facet arthropathy [M47.816] INVALID FOR* DDD (degenerative disc disease), lumbar [M51.36]INVALID FOR* Diabetes mellitus [E11.9] INVALID FOR*11/24/2014 DDD (degenerative disc disease), cervical [M50.*INVALID FOR* DM (diabetes mellitus) (HCC) [E11.9] INVALID FOR* PMB (postmenopausal bleeding) [N95.0] INVALID FOR* Dysthymia [F34.1] INVALID FOR* Major depressive disorder, recurrent episode, m*INVALID FOR* More... Pain disorder with psychological factors [F45.4*INVALID FOR* Diffuse myofascial pain syndrome [M79.18] INVALID FOR* Bilateral primary osteoarthritis of knee [M17.0]INVALID FOR* Obesity, Class III, BMI >= 40 [E66.01] INVALID FOR*10/20/2017 Liver disease [K76.9] INVALID FOR* More... Umbilical hernia without obstruction and withou*INVALID FOR* More... Encounter Status:Closed by LUISA PINTO on 12/21/17 PROGRESS Observed: 12/17/2017 Status: COMPLETED Source: [place] 5:17 PM [facility] REPOSIT[facility] HNO ID: [id number] Author: Vincent Herbert Service: (none) Author Type: Physician Type: Progress Notes Filed: 12/17/2017 5:17 PM Note Text: bp is ok. PROGRESS Observed: 12/17/2017 Status: COMPLETED Source: [place] 5:03 PM [facility] REPOSIT[facility] HNO ID: [id number] Author: Brittany Valencia LPN Service: (none) Author Type: (none) Type: Progress Notes Filed: 12/17/2017 5:17 PM Note Text: Manual Readin/78 Pulse: 84 Reason for blood pressure check - Last BP elevated Patient is: Taking medication as prescribed Yes Took medication today Yes Experiencing side effects No Recommendations Continue taking medications as prescribed, Follow recommended diet instructions, Continue recommended activity and Avoid excessive salt Pt has been identified by name and birthdate: Yes Allergies reviewed: Yes Latex allergy: no. Medication - prescribed and OTC reviewed and updated: Yes Do you need any prescription refills prior to your next visit: No Health Maintenance: Reviewed and up to date CNOV Observed: 12/17/2017 Status: COMPLETED Source: [place] 4:40 PM [facility] REPOS[facility] KATHLEEN KHAN V ([id number]) 1960 F Date Time Provider Department 12/17/17 4:40 PM [facility] HER[facility] During your visit today, we recorded the following information about you: Pulse Blood pressure 84/minute 122/78 Brittany Valencia LPN 12/17/2017 5:17 PM Signed Manual Readin/78 Pulse: 84 Reason for blood pressure check - Last BP elevated Patient is: Taking medication as prescribed Yes Took medication today Yes Experiencing side effects No Recommendations Continue taking medications as prescribed, Follow recommended diet instructions, Continue recommended activity and Avoid excessive salt Pt has been identified by name and birthdate: Yes Allergies reviewed: Yes Latex allergy: no. Medication - prescribed and OTC reviewed and updated: Yes Do you need any prescription refills prior to your next visit: No Health Maintenance: Reviewed and up to date Vincent Herbert MD 12/17/2017 5:17 PM Signed bp is ok. Referring Provider: VINCENT HERBERT [[id number]] Allergies As of Date: 12/17/2017 Noted Allergy Reaction LYRICA (PREGABALIN) 08/05/2012 10 - Anaphylaxis Comments: Not sure if accurate. Can take gabapentin. Patient is unsure of reaction. ACCUPRIL (QUINAPRIL HCL) 08/12/2005 5 - Intolerance Comments: dizziness AMLODIPINE 04/24/2008 7 - Swelling Comments: Leg edema ATENOLOL 09/29/2010 7 - Swelling ATORVASTATIN 11/01/2017 5 - Intolerance Comments: Muscle cramps and weakness EFFEXOR (VENLAFAXINE HCL) 09/22/2005 Comments: swelling high blood pressure JANUVIA (SITAGLIPTIN) 09/21/2011 8 - GI Upset 14 - Other: See Comments Comments: Patient states she couldn't eat METOPROLOL 09/21/2009 7 - Swelling MOBIC (MELOXICAM) 08/12/2005 8 - GI Upset PROZAC (FLUOXETINE HCL) 08/12/2005 5 - Intolerance Comments: tremor RISPERIDONE 12/22/2009 1 - Mental Status Change SEROQUEL (QUETIAPINE FUMARATE) 10/05/2006 Comments: hypertension,swelling VANCOMYCIN 08/10/2017 9 - Itching 14 - Other: See Comments Comments: red all over VIOXX (ROFECOXIB) 08/12/2005 8 - GI Upset WELLBUTRIN (BUPROPION HCL) 08/12/2005 5 - Intolerance Comments: nightmares Date Reviewed: 12/17/2017 Reviewed by: Brittany Valencia LPN - Fully Assessed Reason for Visit: Blood Pressure [15] Primary Visit Diagnosis:Essential hypertension, benign [I10] Prescriptions as of 12/17/2017 Sig: POTASSIUM CHLORIDE ER 10 MEQ * Take 1 tablet by mouth once d* BACLOFEN 10 MG TABLET Take 1 tablet by mouth twice * SPIRONOLACTONE 25 MG TABLET Take 1 tablet by mouth once d* FUROSEMIDE 20 MG TABLET Take 1 tablet by mouth once d* DULOXETINE 60 MG CAPSULE,JODI* Take 1 capsule by mouth once * ARIPIPRAZOLE 10 MG TABLET Take 1 tablet by mouth once d* ASPIRIN 81 MG TABLET,DELAYED * Take 1 tablet by mouth once d* POLYETHYLENE GLYCOL 3350 17 G* Take 17 g by mouth once daily. INSULIN GLARGINE (U-100) 100 * Inject 30 Units subcutaneousl* GABAPENTIN 300 MG CAPSULE Take 1 capsule by mouth twice* CLINDAMYCIN HCL 150 MG CAPSULE Take 1 capsule by mouth four * NABUMETONE 500 MG TABLET Take 1 tablet by mouth once d* BLOOD-GLUCOSE METER KIT Glucose Meter of Choice - Kit* NYSTATIN 100,000 UNIT/GRAM TO* Apply 1 application to affect* LINAGLIPTIN 5 MG TABLET Take 1 tablet by mouth once d* RANITIDINE 150 MG TABLET Take 1 tablet by mouth twice * PRIMIDONE 50 MG TABLET TAKE ONE TABLET ONCE DAILY AT* PEN NEEDLE, DIABETIC 32 GAUGE* Use one needle for each dose.* HYDROCODONE 5 MG-ACETAMINOPHE* TAKE ONE TABLET TWICE DAILY BLOOD SUGAR DIAGNOSTIC STRIPS Test blood sugar(s) 2 times d* TRUETEST TEST STRIPS TEST twice a day LANCETS 30 GAUGE Test twice daily Dx: 250.02 TRAZODONE 50 MG TABLET Take 0.5 tablets by mouth padmini* NITROGLYCERIN 0.4 MG SUBLINGU* Dissolve 1 tablet under the t* Problem List As Of Date 12/17/2017 Noted Resolved Major depressive disorder, recurrent episode, u*INVALID FOR*11/24/2014 Priority: A More... Anxiety state [F41.1] INVALID FOR* BENIGN HYPERTENSION [I10] INVALID FOR* OSTEOARTHROS NOS-UNSPEC [M19.90] INVALID FOR*02/07/2007 ABNL GLANDULAR PAP SMEAR CERVIX [R87.619] INVALID FOR* HYPERPROLACTINEMIA [E22.9] INVALID FOR* IRREGULAR MENSTRUATION [N92.6] INVALID FOR* ESOPHAGEAL REFLUX [K21.9] INVALID FOR* ACUTE GASTRITIS W/O HEMORRHAGE [K29.00] INVALID FOR*02/07/2007 DIAPHRAGMATIC HERNIA [K44.9] INVALID FOR* Unspecified gastritis and gastroduodenitis with*INVALID FOR*07/24/2016 Localized osteoarthrosis not specified whether *INVALID FOR*07/24/2016 Priority: A More... Pain in joint, site unspecified [M25.50] INVALID FOR*07/24/2016 Routine general medical examination at a health*INVALID FOR*11/29/2011 Class: Chronic More... Routine gynecological examination [Z01.419] INVALID FOR*11/29/2011 Class: Chronic More... More... Morbid obesity [E66.01] INVALID FOR* Priority: Very Severe Hyperprolactinemia [E22.1] INVALID FOR*01/30/2012 Obstructive sleep apnea [G47.33] INVALID FOR* Priority: Severe More... Medication side effects [T88.7XXA] INVALID FOR*08/10/2017 SVT (supraventricular tachycardia) [I47.1] Priority: A Type II or unspecified type diabetes mellitus w*INVALID FOR*04/10/2012 Priority: Moderate More... Congestive heart failure [I50.9] INVALID FOR* Spondylolisthesis [M43.10] INVALID FOR* Lumbar facet arthropathy [M47.816] INVALID FOR* DDD (degenerative disc disease), lumbar [M51.36]INVALID FOR* Diabetes mellitus [E11.9] INVALID FOR*11/24/2014 DDD (degenerative disc disease), cervical [M50.*INVALID FOR* DM (diabetes mellitus) (HCC) [E11.9] INVALID FOR* PMB (postmenopausal bleeding) [N95.0] INVALID FOR* Dysthymia [F34.1] INVALID FOR* Major depressive disorder, recurrent episode, m*INVALID FOR* More... Pain disorder with psychological factors [F45.4*INVALID FOR* Diffuse myofascial pain syndrome [M79.18] INVALID FOR* Bilateral primary osteoarthritis of knee [M17.0]INVALID FOR* Obesity, Class III, BMI >= 40 [E66.01] INVALID FOR*10/20/2017 Liver disease [K76.9] INVALID FOR* More... Umbilical hernia without obstruction and withou*INVALID FOR* More... Follow-up and Disposition History Recorded Encounter Status:Closed by VINCENT HERBERT MD on 12/17/17 IRON AND TIBC Collected: 12/17/2017 Status: F Source: [place] 4:29 PM [facility] REPOS[facility] TYPE CODE TESTS RESULT OUT OF REFERENCE UNITS RANGE LAB IRN 41-186 ug/dL Iron 45 LAB TIBC 232-386 ug/dL TIBC 296 LAB SAT 15-57 % Transferrin Saturatn 15 Performed By: #### IRON, TSH, B12, VITD #### [facility] [address] [address] TSH Collected: 12/17/2017 Status: F Source: [place] 4:29 PM [facility] RE[facility] TYPE CODE TESTS RESULT OUT OF RANGE REFERENCE UNITS LAB TSH 0.400-5.500 uU/mL TSH 2.070 Performed By: #### IRON, TSH, B12, VITD #### [facility] [address] [place] [address] VITAMIN B12 Collected: 12/17/2017 Status: F Source: [place] 4:29 [facility] REPOSITORY TYPE CODE TESTS RESULT OUT OF REFERENCE UNITS RANGE LAB B12 232-1245 pg/mL Vitamin B12 634 Performed By: #### IRON, TSH, B12, VITD #### [place] [address] VITAMIN D 25 HYDROXY Collected: 12/17/2017 Status: F Source: [place] 4:29 [facility] TYPE CODE TESTS RESULT OUT OF REFERENCE UNITS RANGE LAB VITD 31.0-80.0 ng/mL Low Vitamin D 25 25.9 Hydroxy Result Comment: Classification of 25 [place] Vitamin D status: Insufficiency/Moderate Deficiency: < or = 30 ng/mL Sufficiency/Optimal Levels: 31 to 80 ng/mL Toxicity: > 100 ng/mL Test performed by chemiluminescent immunoassay. Performed By: #### IRON, TSH, B12, VITD #### [facility] [address] [address] FOLATE, SERUM Collected: 12/17/2017 Status: F Source: [place] 4:29 PM [facility] RE[facility] TYPE CODE TESTS RESULT OUT OF REFERENCE UNITS RANGE LAB SERFOL >4.7 ng/mL Folate, 8.6 Serum Performed By: #### SERFOL #### [facility] [address] [place], [place] [address] PATSYN Observed: 12/14/2017 Status: COMPLETED Source: [place] 12:00 AM [facility] REPOS[facility] Telephone (CAWSTR) KATHLEEN KHAN V ([id number]) 1960 F Date Time Provider Department 12/14/17 SHORTY ELIZONDO CAWSTR During your visit today, we recorded the following information about you: Francisca James RN 12/14/2017 10:03 AM Signed Pt called, verified by name and birthdate. Pt states she is going through treatment to have bariatric surgery after the first of the year but she needs to have cardiac clearance from Dr. Elizondo. Please advise if any tests need ordered AND when you would like to see her. Francisca Elizondo MD 12/14/2017 10:13 AM Signed I will see her closer to her estimated time of surgery. There is no point in doing preoperative risk assessment now if her surgery will not be for several months MD Winnie Bolden MA 12/14/2017 10:19 AM Signed Patient notified of results and provider's instructions. Patient verbalizes understanding. Winnie James RN 12/20/2017 4:28 PM Signed Pt called, verified by name and birthdate. Pt states she still does not know when her surgery will be but wants to get an apt with Dr. Elizondo. Pt transferred to PSR to schedule Francisca James RN Allergies As of Date: 12/14/2017 Noted Allergy Reaction LYRICA (PREGABALIN) 08/05/2012 10 - Anaphylaxis Comments: Not sure if accurate. Can take gabapentin. Patient is unsure of reaction. ACCUPRIL (QUINAPRIL HCL) 08/12/2005 5 - Intolerance Comments: dizziness AMLODIPINE 04/24/2008 7 - Swelling Comments: Leg edema ATENOLOL 09/29/2010 7 - Swelling ATORVASTATIN 11/01/2017 5 - Intolerance Comments: Muscle cramps and weakness EFFEXOR (VENLAFAXINE HCL) 09/22/2005 Comments: swelling high blood pressure JANUVIA (SITAGLIPTIN) 09/21/2011 8 - GI Upset 14 - Other: See Comments Comments: Patient states she couldn't eat METOPROLOL 09/21/2009 7 - Swelling MOBIC (MELOXICAM) 08/12/2005 8 - GI Upset PROZAC (FLUOXETINE HCL) 08/12/2005 5 - Intolerance Comments: tremor RISPERIDONE 12/22/2009 1 - Mental Status Change SEROQUEL (QUETIAPINE FUMARATE) 10/05/2006 Comments: hypertension,swelling VANCOMYCIN 08/10/2017 9 - Itching 14 - Other: See Comments Comments: red all over VIOXX (ROFECOXIB) 08/12/2005 8 - GI Upset WELLBUTRIN (BUPROPION HCL) 08/12/2005 5 - Intolerance Comments: nightmares Date Reviewed: 12/13/2017 Reviewed by: Micaela Garcia (Bianca) Van - Fully Assessed Reason for Visit: Cardiac Clearance [4105] Prescriptions as of 12/14/2017 Sig: POTASSIUM CHLORIDE ER 10 MEQ * Take 1 tablet by mouth once d* POLYETHYLENE GLYCOL 3350 17 G* Take 17 g by mouth once daily. INSULIN GLARGINE (U-100) 100 * Inject 30 Units subcutaneousl* BACLOFEN 10 MG TABLET Take 1 tablet by mouth twice * GABAPENTIN 300 MG CAPSULE Take 1 capsule by mouth twice* CLINDAMYCIN HCL 150 MG CAPSULE Take 1 capsule by mouth four * NABUMETONE 500 MG TABLET Take 1 tablet by mouth once d* BLOOD-GLUCOSE METER KIT Glucose Meter of Choice - Kit* NYSTATIN 100,000 UNIT/GRAM TO* Apply 1 application to affect* LINAGLIPTIN 5 MG TABLET Take 1 tablet by mouth once d* SPIRONOLACTONE 25 MG TABLET Take 1 tablet by mouth once d* RANITIDINE 150 MG TABLET Take 1 tablet by mouth twice * FUROSEMIDE 20 MG TABLET Take 1 tablet by mouth once d* DULOXETINE 60 MG CAPSULE,JODI* Take 1 capsule by mouth once * PRIMIDONE 50 MG TABLET TAKE ONE TABLET ONCE DAILY AT* PEN NEEDLE, DIABETIC 32 GAUGE* Use one needle for each dose.* HYDROCODONE 5 MG-ACETAMINOPHE* TAKE ONE TABLET TWICE DAILY BLOOD SUGAR DIAGNOSTIC STRIPS Test blood sugar(s) 2 times d* TRUETEST TEST STRIPS TEST twice a day LANCETS 30 GAUGE Test twice daily Dx: 250.02 TRAZODONE 50 MG TABLET Take 0.5 tablets by mouth padmini* ARIPIPRAZOLE 10 MG TABLET Take 1 tablet by mouth once d* NITROGLYCERIN 0.4 MG SUBLINGU* Dissolve 1 tablet under the t* ASPIRIN 81 MG TABLET,DELAYED * Take 1 tablet by mouth once d* Problem List As Of Date 12/14/2017 Noted Resolved Major depressive disorder, recurrent episode, u*INVALID FOR*11/24/2014 Priority: A More... Anxiety state [F41.1] INVALID FOR* BENIGN HYPERTENSION [I10] INVALID FOR* OSTEOARTHROS NOS-UNSPEC [M19.90] INVALID FOR*02/07/2007 ABNL GLANDULAR PAP SMEAR CERVIX [R87.619] INVALID FOR* HYPERPROLACTINEMIA [E22.9] INVALID FOR* IRREGULAR MENSTRUATION [N92.6] INVALID FOR* ESOPHAGEAL REFLUX [K21.9] INVALID FOR* ACUTE GASTRITIS W/O HEMORRHAGE [K29.00] INVALID FOR*02/07/2007 DIAPHRAGMATIC HERNIA [K44.9] INVALID FOR* Unspecified gastritis and gastroduodenitis with*INVALID FOR*07/24/2016 Localized osteoarthrosis not specified whether *INVALID FOR*07/24/2016 Priority: A More... Pain in joint, site unspecified [M25.50] INVALID FOR*07/24/2016 Routine general medical examination at a health*INVALID FOR*11/29/2011 Class: Chronic More... Routine gynecological examination [Z01.419] INVALID FOR*11/29/2011 Class: Chronic More... More... Morbid obesity [E66.01] INVALID FOR* Priority: Very Severe Hyperprolactinemia [E22.1] INVALID FOR*01/30/2012 Obstructive sleep apnea [G47.33] INVALID FOR* Priority: Severe More... Medication side effects [T88.7XXA] INVALID FOR*08/10/2017 SVT (supraventricular tachycardia) [I47.1] Priority: A Type II or unspecified type diabetes mellitus w*INVALID FOR*04/10/2012 Priority: Moderate More... Congestive heart failure [I50.9] INVALID FOR* Spondylolisthesis [M43.10] INVALID FOR* Lumbar facet arthropathy [M47.816] INVALID FOR* DDD (degenerative disc disease), lumbar [M51.36]INVALID FOR* Diabetes mellitus [E11.9] INVALID FOR*11/24/2014 DDD (degenerative disc disease), cervical [M50.*INVALID FOR* DM (diabetes mellitus) (HCC) [E11.9] INVALID FOR* PMB (postmenopausal bleeding) [N95.0] INVALID FOR* Dysthymia [F34.1] INVALID FOR* Major depressive disorder, recurrent episode, m*INVALID FOR* More... Pain disorder with psychological factors [F45.4*INVALID FOR* Diffuse myofascial pain syndrome [M79.18] INVALID FOR* Bilateral primary osteoarthritis of knee [M17.0]INVALID FOR* Obesity, Class III, BMI >= 40 [E66.01] INVALID FOR*10/20/2017 Liver disease [K76.9] INVALID FOR* More... Umbilical hernia without obstruction and withou*INVALID FOR* More... Encounter Status:Closed by WINNIE OVERTON MA on 12/14/17 CNCNPATED Observed: 12/13/2017 Status: COMPLETED Source: [place] 2:30 PM [facility] RE[facility] Education (GENBMI) KATHLEEN KHAN V ([id number]) 1960 F Date Time Provider Department 12/13/17 2:30 PM MICAELA TATE) PRISCILLA Reason for Visit: Patient Education [91] Assessment [673] Progress Notes: Micaela Tate RD 12/13/2017 4:36 PM Signed [facility] PATIENT EDUCATION NOTE-Shared [facility] TOPIC: LIFE STYLE CHANGES: Pre-op weight loss surgery (RYGB): Diet and Exercise PAIN: Is the patient having any pain that is interfering with oral / enteral intake? No: 0 on a scale of 0 to 10 Diet History: Do you typically skip meals? No How often do you eat deep fried foods (chips, [place] fries, fried meats, etc) Rarely (1 - 2 times per week) How often do you eat sweets (cakes, cookies, candy, ice cream, pie) Rarely (1 - 2 times per week) Breakfast - 1 piece of [place] toast Snack - jello, pudding Lunch - meat/veggies/potatoes Snack - apple Dinner - meat/veggies/potatoes Snack - water, coffee, tea Fluids - water, coffee, tea Exercise - 3/week 15 minutes- walking, arm exercises Diagnosis: has not changed. Allergies: Lyrica [Pregabalin]; Accupril [Quinapril Hcl]; Amlodipine; Atenolol; Atorvastatin; Effexor [Venlafaxine Hcl]; Januvia [Sitagliptin]; Metoprolol; Mobic [Meloxicam]; Prozac [Fluoxetine Hcl]; Risperidone; Seroquel [Quetiapine Fumarate]; Vancomycin; Vioxx [Rofecoxib]; Wellbutrin [Bupropion Hcl] Medications: Current Outpatient Prescriptions: potassium chloride ER (K-DUR, KLOR-CON) 10 mEq tablet Take 1 tablet by mouth once daily. Disp: 60 tablet Rfl: 5 polyethylene glycol 3350 (MIRALAX, GLYCOLAX) 17 gram/dose powder Take 17 g by mouth once daily. Disp: 1 Bottle Rfl: 11 insulin glargine (BASAGLAR KWIKPEN U-100 INSULIN) 100 unit/mL (3 mL) inpn Inject 30 Units subcutaneously daily at bedtime. Disp: 3 Pen Rfl: 5 baclofen (LIORESAL) 10 mg tablet Take 1 tablet by mouth twice daily. Disp: 60 tablet Rfl: 1 gabapentin (NEURONTIN) 300 mg capsule Take 1 capsule by mouth twice daily for 90 days. Disp: 60 capsule Rfl: 2 clindamycin (CLEOCIN) 150 mg capsule Take 1 capsule by mouth four times daily. Disp: 40 capsule Rfl: 0 nabumetone (RELAFEN) 500 mg tablet Take 1 tablet by mouth once daily. TAKE WITH FOOD Disp: 30 tablet Rfl: 2 Blood-Glucose Meter monitoring kit Glucose Meter of Choice - Kit - Dx: Type 2 DM - Controlled E11.9 Use twice daily as directed Disp: 1 Each Rfl: 0 nystatin (MYCOSTATIN) cream Apply 1 application to affected area twice daily. Disp: 1 Tube Rfl: 1 linagliptin (TRADJENTA) 5 mg tab Take 1 tablet by mouth once daily. Disp: 90 tablet Rfl: 3 spironolactone (ALDACTONE) 25 mg tablet Take 1 tablet by mouth once daily. Disp: 90 tablet Rfl: 3 ranitidine (ZANTAC) 150 mg tablet Take 1 tablet by mouth twice daily. Disp: 180 tablet Rfl: 3 furosemide (LASIX) 20 mg tablet Take 1 tablet by mouth once daily. Disp: 90 tablet Rfl: 3 DULoxetine (CYMBALTA) 60 mg capsule Take 1 capsule by mouth once daily. Disp: 90 capsule Rfl: 3 primidone (MYSOLINE) 50 mg tablet TAKE ONE TABLET ONCE DAILY AT BEDTIME Disp: 30 tablet Rfl: 11 Insulin [place], Disposable, (BD ULTRA-FINE MADI PEN NEEDLE) 32 gauge x 5/32 ndle Use one needle for each dose. 1/day. Disp: 100 Each Rfl: 11 HYDROcodone-acetaminophen (NORCO) 5-325 mg per tablet TAKE ONE TABLET TWICE DAILY Disp: Rfl: blood sugar diagnostic (BLOOD GLUCOSE TEST) test strip Test blood sugar(s) 2 times daily. Dx: Type 2 DM - Controlled E11.9 Insulin: No Disp: 100 Strip Rfl: 11 TRUETEST TEST STRIPS test strip TEST twice a day Disp: 100 Strip Rfl: 11 lancets (TRUEPLUS LANCETS) 30 gauge misc Test twice daily Dx: 250.02 Disp: 200 Each Rfl: 4 traZODone (DESYREL) 50 mg tablet Take 0.5 tablets by mouth daily at bedtime. Disp: 30 tablet Rfl: 5 ARIPiprazole (ABILIFY) 10 mg tablet Take 1 tablet by mouth once daily. Disp: 30 tablet Rfl: 5 nitroglycerin sublingual (NITROQUICK) 0.4 mg SL tablet Dissolve 1 tablet under the tongue as needed. FOR CHEST PAIN. IF NO RELIEF CALL 911 Disp: 25 tablet Rfl: 6 aspirin, enteric coated (ECOTRIN LOW STRENGTH) 81 mg EC tablet Take 1 tablet by mouth once daily. Disp: Rfl: 0 No current facility-administered medications for this visit. (currently taking) ; Anthropometrics: Height: Last 1 Encounter Ht Readings: Date: Ht: 07/20/2017 154.9 cm (5' 1) Current weight: Last 1 Encounter Wt Readings: Date: Wt: 10/29/2017 179.6 kg (396 lb) Body mass index is 73.33 kg/m?. Resting Metabolic Rate: 2321 NUTRITION ASSESSMENT: Malnutrition Screening Significant unintentional weight loss? No Eating less than 75% of usual intake for more than 2 weeks? No RECOMMENDED MALNUTRITION DIAGNOSIS: NO MALNUTRITION IDENTIFIED Educational materials provided: Your Guide To surgery READINESS TO LEARN Cognitive ability: Alert and oriented Motivation to learn: Eager Interested Family support: Unable to assess - Family not present Instruction provided to: Patient Patient learns best by: Multiple Methods Factors affecting learning: None Physical limitations affecting learning: None Likelihood of Adherence: High Height and weight taken today. Presents for initial consultation for pre op RYGB with BMI of 73.33- Class 4 obesity. Significant medical comorbidities include type 2 diabetes, HTN, JEREMÍAS, GERD. Patient has unrealistic weight loss expectations, anticipating weight loss of 200# following surgery (75% EBW). Patient has fair understanding of weight loss surgery and nutritional implications following surgery. Previous diet attempts include WW, Slim Fast. Weight history significant for weight cycling. Highest weight: 424# Lowest weight: 270# Previous diet attempts: WW (20#), Slim Fast (10#) Most weight loss: 20# Motivation for surgery: more independence, bad knees, back back Weight loss expectations 200 lbs. Diet recall indicates 3 meals per day with minimal snacks; overall intake is balanced with all food groups represented, however, because patient is not able to produce adequate energy expenditure, calorie intake may not facilitate weight loss and should would benefit from initiation of low calorie partial liquid diet. She reports being able to do chair exercises and is encouraged to increase either duration or frequency to help build strength and endurance as she prepares for surgery. [place] body weight is 122 lbs. Excess body weight is 267 lbs. Goal weight pre-op is 362 lbs. Protein goal is 67-83 gm (based on 1.2-1.5 gm/kg ideal body weight) Patient meets the National Institutes of Health guidelines for weight loss surgery and has [employer] therefore is required to complete 0 months of Nutrition Intervention for clearance for surgery. Will need to have a visit with Dr. Fierro/Dr. Ayon/Doretha Bowen also before clearance. Patient does meet National Institutes of Health guidelines for weight loss surgery, however would like to see more of an effort in making dietary changes before giving clearance. I anticipate at least 2-3 nutritional follow-up visits prior to clearance for surgery. Nutrition Diagnosis: Overweight Obesity, related to; decreased energy needs, as evidenced by BMI above normative standard for age and gender. Nutrition Intervention: Modify type and amount of intake at meals and snacks 1. Read Nutritional Guidelines Section of Your Guide to Surgery by next session 2. Begin 0716-0401 calorie partial liquid diet (refer to handout) Breakfast: protein shake (200-250 calories, 15+ grams protein) plus 1 piece of fruit Lunch: protein shake (200-250 calories, 15+ grams protein) plus 1 piece of fruit Dinner: 4-5 ounces lean protein, 1 cup starch (bread/pasta/potatoes/corn/peas), unlimited non starchy vegetables 1 snack (< 150 calories) should contain protein 3. Physical activity: continue with walking and arm exercises; try to increase from 15 minutes to 25-30, can be divided into 2- 15 minute sessions 4. Drink 64 ounces per day water. Fluids should follow these guidelines: No carbonation, no caffeine, no calories, no alcohol. Pre-op goal weight: 362# Protein goal: 67-83 grams Nutrition Monitoring AND Evaluation: 1-2 # weight loss per week prior to surgery Criteria: Weight check Need for Follow up: 1 month Referred/Supervised by: Nohemy/Nany Consult Billing Type: Group/30 minutes Number of Increments: 2 (60 minutes) Signed by: Micaela Tate MS,RD,LD Primary Visit Diagnosis:Type 2 diabetes mellitus without complication, unspecified whether group home insulin use (HCC) [E11.9] Other Visit Diagnoses:Dietary counseling and surveillance [Z71.3] Morbid obesity (HCC) [E66.01] During your visit today, we recorded the following information about you: Weight Height 176.4 kg 1.551 m Allergies As of Date: 12/13/2017 Noted Allergy Reaction LYRICA (PREGABALIN) 08/05/2012 10 - Anaphylaxis Comments: Not sure if accurate. Can take gabapentin. Patient is unsure of reaction. ACCUPRIL (QUINAPRIL HCL) 08/12/2005 5 - Intolerance Comments: dizziness AMLODIPINE 04/24/2008 7 - Swelling Comments: Leg edema ATENOLOL 09/29/2010 7 - Swelling ATORVASTATIN 11/01/2017 5 - Intolerance Comments: Muscle cramps and weakness EFFEXOR (VENLAFAXINE HCL) 09/22/2005 Comments: swelling high blood pressure JANUVIA (SITAGLIPTIN) 09/21/2011 8 - GI Upset 14 - Other: See Comments Comments: Patient states she couldn't eat METOPROLOL 09/21/2009 7 - Swelling MOBIC (MELOXICAM) 08/12/2005 8 - GI Upset PROZAC (FLUOXETINE HCL) 08/12/2005 5 - Intolerance Comments: tremor RISPERIDONE 12/22/2009 1 - Mental Status Change SEROQUEL (QUETIAPINE FUMARATE) 10/05/2006 Comments: hypertension,swelling VANCOMYCIN 08/10/2017 9 - Itching 14 - Other: See Comments Comments: red all over VIOXX (ROFECOXIB) 08/12/2005 8 - GI Upset WELLBUTRIN (BUPROPION HCL) 08/12/2005 5 - Intolerance Comments: nightmares Date Reviewed: 12/13/2017 Reviewed by: Micaela Garcia (Bianca) Van - Fully Assessed Prescriptions as of 12/13/2017 Sig: POTASSIUM CHLORIDE ER 10 MEQ * Take 1 tablet by mouth once d* POLYETHYLENE GLYCOL 3350 17 G* Take 17 g by mouth once daily. INSULIN GLARGINE (U-100) 100 * Inject 30 Units subcutaneousl* BACLOFEN 10 MG TABLET Take 1 tablet by mouth twice * GABAPENTIN 300 MG CAPSULE Take 1 capsule by mouth twice* CLINDAMYCIN HCL 150 MG CAPSULE Take 1 capsule by mouth four * NABUMETONE 500 MG TABLET Take 1 tablet by mouth once d* BLOOD-GLUCOSE METER KIT Glucose Meter of Choice - Kit* NYSTATIN 100,000 UNIT/GRAM TO* Apply 1 application to affect* LINAGLIPTIN 5 MG TABLET Take 1 tablet by mouth once d* SPIRONOLACTONE 25 MG TABLET Take 1 tablet by mouth once d* RANITIDINE 150 MG TABLET Take 1 tablet by mouth twice * FUROSEMIDE 20 MG TABLET Take 1 tablet by mouth once d* DULOXETINE 60 MG CAPSULE,JODI* Take 1 capsule by mouth once * PRIMIDONE 50 MG TABLET TAKE ONE TABLET ONCE DAILY AT* PEN NEEDLE, DIABETIC 32 GAUGE* Use one needle for each dose.* HYDROCODONE 5 MG-ACETAMINOPHE* TAKE ONE TABLET TWICE DAILY BLOOD SUGAR DIAGNOSTIC STRIPS Test blood sugar(s) 2 times d* TRUETEST TEST STRIPS TEST twice a day LANCETS 30 GAUGE Test twice daily Dx: 250.02 TRAZODONE 50 MG TABLET Take 0.5 tablets by mouth padmini* ARIPIPRAZOLE 10 MG TABLET Take 1 tablet by mouth once d* NITROGLYCERIN 0.4 MG SUBLINGU* Dissolve 1 tablet under the t* ASPIRIN 81 MG TABLET,DELAYED * Take 1 tablet by mouth once d* Letter Text [facility] [place] [address] [place], [place] [address] December 13, 2017 Kathleen Khan [address] [place] [address] [facility] [id number] [facility] Nutrition Recommendations: 1. Read Nutritional Guidelines Section of Your Guide to Surgery by next session 2. Begin 7191-5129 calorie partial liquid diet (refer to handout) Breakfast: protein shake (200-250 calories, 15+ grams protein) plus 1 piece of fruit Lunch: protein shake (200-250 calories, 15+ grams protein) plus 1 piece of fruit Dinner: 4-5 ounces lean protein, 1 cup starch (bread/pasta/potatoes/corn/peas), unlimited non starchy vegetables 1 snack (< 150 calories) should contain protein 3. Physical activity: continue with walking and arm exercises; try to increase from 15 minutes to 25-30, can be divided into 2- 15 minute sessions 4. Drink 64 ounces per day water. Fluids should follow these guidelines: No carbonation, no caffeine, no calories, no alcohol. Pre-op goal weight: 362# Protein goal: 67-83 grams Your insurance company, [employer], does not require a medically supervised weight loss attempt. I would like to see you for at least 1 additional nutrition visit to reassess your diet and weight loss efforts as well as answer any questions or concerns that you may have regarding nutrition prior to your surgery. It is vital that you get as close to your pre op goal weight as possible. I look forward to working with you. If you have any questions regarding your insurance policy, please feel free to contact Shanna Conti at . Micaela Tate MS,RD,LD Encounter Status:Closed by MICAELA TATE RD on 12/13/17 CNOV Observed: 12/13/2017 Status: COMPLETED Source: [facility] 1:00 PM [facility] [place] RE[facility] Office Visit (GENBMI) KATHLEEN KHAN V ([id number]) 1960 F Date Time Provider Department 12/13/17 1:00 PM ESPERANZA FIERRO GENBMI During your visit today, we recorded the following information about you: Pulse Blood pressure Weight Height 76/minute 144/84 176.4 kg 1.549 m Esperanza Fierro MD 12/22/2017 11:52 AM Signed CC/HPI: 57 year old lady presents for medical evaluation prior to anticipated medical/surgical treatment of obesity. The patient is interested in surgical weight loss. Goal/motivation for weight loss? To get more healthy and be more independent Weight gain history: Age of onset: Whole life Inciting/contributing factors to weight gain: multiple factors What gets in the way of your weight loss? Has trouble getting much exercise Minimum weight: 270# Maximum weight: 424# What is your weight loss goal? 150# Previous weight loss attempts: WW; diets at home; Atkins; numerous self-directed diets Medications (prescription or non-prescription) for weight loss? Yes-weight loss pills What has worked the best so far for you in the past? Rx weight loss pills History of Eating disorders? (bulimia, anorexia, binge eating?) no Family history of obesity? yes Diet: -B: Honduran toast -L: Chicken, mashed potatoes, mixed vegetables -D: --Snacks: Apples -Beverages: Water, tea Exercise: Has been doing arm exercises and walking tries to do daily Functional Capacity: -Walk 4 blocks on level ground without symptoms? Can walk 15 minutes and uses a walker at home; has a wheelchair to use at home only for long distances -Climb 2 flights of stairs without symptoms? No-limited by strength -heavy housework without symptoms? Has a home health aide who is helping her out with this Previous stress testing/cardiac testing and why? Yes-chemical stress test; heart cath; Holter monitoring done to make sure she had no blockage Sleep apnea screen: Has been awhile; maybe 2-3 or years - Dr. 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0 pG 27.9 MCHC 30.5 - 36.0 g/dL 32.4 RDW-CV 11.5 - 15.0 % 13.2 Platelet Count 150 - 400 k/uL 229 MPV 9.0 - 12.7 fL 11.6 Neut% % 91.3 Abs Neut (ANC) 1.45 - 7.50 k/uL 12.21 (H) Lymph% % 4.1 Abs Lymph 1.00 - 4.00 k/uL 0.55 (L) [place]% % 3.7 Abs [place] <0.87 k/uL 0.50 Eosin% % 0.7 Abs Eosin <0.46 k/uL 0.10 Baso% % 0.2 Abs Baso <0.11 k/uL 0.03 Nucleated Reds 0 /100 WBC 0.0 Absolute nRBC <0.01 k/uL <0.01 Diff Type Auto Diff Hemoglobin A1C 4.3 - 5.6 % 6.8 (H) Estimated Average Glucose mg/dL 148 Component Latest Ref Rng AND Units 07/25/2017 Alkaline Phosphatase (ALKISO) 32 - 117 U/L 158 (H) Alk Phos Bone % 10.7 - 68.3 % 23.8 Bone Fraction 12.0 - 50.0 U/L 37.6 Alk Phos Liver % 26.0 - 86.2 % 76.2 Liver Fraction 15.0 - 66.0 U/L 120.4 (H) Alk Phos Intestine % 0.0 - 24.2 % 0.0 Intestine Fraction 0.0 - 15.3 U/L 0.0 Component Latest Ref Rng AND Units 07/20/2017 Protein, Total 6.3 - 8.0 g/dL 7.3 Albumin 3.9 - 4.9 g/dL 4.3 Calcium 8.5 - 10.2 mg/dL 9.6 Bilirubin, Total 0.2 - 1.3 mg/dL 0.4 Alkaline Phosphatase 32 - 117 U/L 173 (H) AST 13 - 35 U/L 17 Glucose 74 - 99 mg/dL 177 (H) BUN 7 - 21 mg/dL 17 Creatinine 0.58 - 0.96 mg/dL 0.61 Sodium 136 - 144 mmol/L 139 Potassium 3.7 - 5.1 mmol/L 4.5 Chloride 97 - 105 mmol/L 97 CO2 22 - 30 mmol/L 28 Anion Gap 9 - 18 mmol/L 14 ALT 7 - 38 U/L 15 eGFR- >60 eGFR-All Other Races . >60 Cholesterol, Total <200 mg/dL 174 Triglyceride <150 mg/dL 199 (H) HDL Cholesterol >39 mg/dL 42 LDL Cholesterol <100 mg/dL 92 Non HDL Cholesterol <130 mg/dL 132 (H) Fasting Time hrs 5 VLDL Cholesterol <30 mg/dL 40 (H) TC:HDL Ratio <5.10 4.14 LDL:HDL Ratio <2.54 2.19 IMAGING: -DATE OF EXAM: Jul 30 2017 US ABD SPLEEN IMPRESSION: ?Coarse, heterogeneous liver echotexture, suggesting hepatocellular disease, without focal hepatic lesion. ?Status post cholecystectomy. ?Splenomegaly, without focal splenic lesion. ADDENDUM #1 Please note that there is an error in this report. The liver measures 15.7 cm, not the spleen. There are findings of hepatocellular disease. No focal hepatic lesion is identified. ?The patient does not have splenomegaly. The spleen measures approximately 11.5 cm. -DATE OF EXAM: Mar 11 2011: NM CARDIAC PERF STRESS/PHARM IMPRESSION: NORMAL STRESS SPECT MYOCARDIAL PERFUSION SCAN. ?NO REVERSIBLE DEFECTS TO DEFINE ISCHEMIA. ?NORMAL LEFT VENTRICULAR SIZE AND SYSTOLIC FUNCTION. PROC: CARDIAC: -11/07/2017-External Stress Test DOS: 10/30/2017 Pharmacologic Myocardial Perfusion Stress Test Conclusion: Probably normal pharmacologic myocardial perfusion stress test. No obvious ischemia noted. (Akhil Dodson MD) (Please see the scanned document in [employer] for the exact report details) -11/07/2017-External Echocardiogram DOS: 10/29/2017 Interpretation Summary Normal LV size. Left ventricular systolic function is normal. The estimated ejection fraction is 55% Normal diastology for age. .. (Please see the scanned document in [employer] for the exact report details) -06/07/2012-External Cardiac Catheterization DOS: 05/23/2012 Left heart catheterization Conclusion: 1. Normal left main coronary artery. 2. Left anterior descending artery, which is angiographically normal. 3. Left circumflex artery, which is angiographically normal. 4. Dominant right coronary artery, which is angiographically normal. 5. Preserved ejection fraction. RECOMMENDATIONS: Based on the angiographic findings, I would recommend continued medical therapy. MEDS: See [facility] PMH: -htn -DM-Tradjenta 5 mg no longer taking the glimiperide -GERD-ranitidine 150 mg -hiatal hernia -JEREMÍAS -fcoukojqy-gxjlg-zlitxkp at knee replacement surgery down the road and low back -depression-on Ability and Cymbalta -h/o CHF-lasix 20 mg Q am, and potassium 10 meq and Aldactone 25 mg -degenerative disc disease and bulging discs-and baclofen 10 mg bid; no longer taking the indomethacin -on aspirin for prevention -insomnia-on trazodone -neuropathy-on gabapentin -tremors-on Primidone -obesity -on Nabumetone takes once daily 500 mg -has h/o SVT -no h/o WI, CAD, For women: control method: none PSHX: -hernia 11/24/2016 -hysteroscopy 12/17/2014 -cataract right-10/27/2014 -cataract left 09/03/2014 -ablation left side back 03/2014 -ablation right side (back)-03/2014 -heart cath 05/23/2012 -gallbladder 05/15/2008 potassium chloride ER (K-DUR, KLOR-CON) 10 mEq tablet Take 1 tablet by mouth once daily. polyethylene glycol 3350 (MIRALAX, GLYCOLAX) 17 gram/dose powder Take 17 g by mouth once daily. insulin glargine (BASAGLAR KWIKPEN U-100 INSULIN) 100 unit/mL (3 mL) inpn Inject 30 Units subcutaneously daily at bedtime. baclofen (LIORESAL) 10 mg tablet Take 1 tablet by mouth twice daily. gabapentin (NEURONTIN) 300 mg capsule Take 1 capsule by mouth twice daily for 90 days. clindamycin (CLEOCIN) 150 mg capsule Take 1 capsule by mouth four times daily. nabumetone (RELAFEN) 500 mg tablet Take 1 tablet by mouth once daily. TAKE WITH FOOD Blood-Glucose Meter monitoring kit Glucose Meter of Choice - Kit - Dx: Type 2 DM - Controlled E11.9 Use twice daily as directed nystatin (MYCOSTATIN) cream Apply 1 application to affected area twice daily. linagliptin (TRADJENTA) 5 mg tab Take 1 tablet by mouth once daily. spironolactone (ALDACTONE) 25 mg tablet Take 1 tablet by mouth once daily. ranitidine (ZANTAC) 150 mg tablet Take 1 tablet by mouth twice daily. furosemide (LASIX) 20 mg tablet Take 1 tablet by mouth once daily. DULoxetine (CYMBALTA) 60 mg capsule Take 1 capsule by mouth once daily. primidone (MYSOLINE) 50 mg tablet TAKE ONE TABLET ONCE DAILY AT BEDTIME Insulin Hamlin, Disposable, (BD ULTRA-FINE MADI PEN NEEDLE) 32 gauge x ndle Use one needle for each dose. 1/day. HYDROcodone-acetaminophen (NORCO) 5-325 mg per tablet TAKE ONE TABLET TWICE DAILY blood sugar diagnostic (BLOOD GLUCOSE TEST) test strip Test blood sugar(s) 2 times daily. Dx: Type 2 DM - Controlled E11.9 Insulin: No TRUETEST TEST STRIPS test strip TEST twice a day lancets (TRUEPLUS LANCETS) 30 gauge misc Test twice daily Dx: 250.02 traZODone (DESYREL) 50 mg tablet Take 0.5 tablets by mouth daily at bedtime. ARIPiprazole (ABILIFY) 10 mg tablet Take 1 tablet by mouth once daily. nitroglycerin sublingual (NITROQUICK) 0.4 mg SL tablet Dissolve 1 tablet under the tongue as needed. FOR CHEST PAIN. IF NO RELIEF CALL 911 aspirin, enteric coated (ECOTRIN LOW STRENGTH) 81 mg EC tablet Take 1 tablet by mouth once daily. PAST MEDICAL HISTORY Diagnosis Date - Abnormal glandular Papanicolaou smear of cervix 05/30/05 ABNL GLANDULAR PAP SMEAR CERVIX - Acute gastritis without mention of hemorrhage - Anxiety state, unspecified - Arrhythmia - Chronic cholecystitis - Chronic obstructive pulmonary disease (COPD) ([facility]) - Congestive heart failure (HCC) 10/03/2011 - Diabetes ([facility]) - diabetes II 2010 - Diaphragmatic hernia without mention of obstruction or gangrene - Dysthymic disorder Depression (non-psychotic) - Esophageal reflux - Essential hypertension, benign - Generalized OA - Localized osteoarthrosis not specified whether primary or secondary, lower leg - Major depressive disorder, recurrent episode - Mucous polyp of cervix 07/19/05 - Other and unspecified anterior pituitary hyperfunction 10/13/05 elevated prolactin level-was normal in 2012 - PMH - PAST MEDICAL HISTORY OF sleep apnea - PMH - PAST MEDICAL HISTORY OF sleep apnea - SVT (supraventricular tachycardia) (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 PAST SURGICAL HISTORY Procedure Laterality Date - CERVICAL BIOPSY OR EXCISION 07/19/05 endocervical polyp - COLONOSCOP W/ OR W/O [facility] SPEC 01/09/2012 Colonoscopy repeat 10 years - COLPOSCOPY (VAGINOSCOPY) Colposcopy - EGD W/O [facility] SPECIMEN W/BX 01/16/07 - EGD W/O OR W/BRUSH/WASH 01/09/2012 EGD - HYSTEROSCOPY DX 12/17/2014 [facility] - LAP CHOLECYSTECT/CHOLANGIOGRAPHY 05/15/08 Review of patient's allergies indicates: Familia Inhibitors Cough Sulfa (Sulfonamide * Unknown Ultram (Tramadol Hc* Hives PHYSICAL EXAMINATION: BP 144/84 (BP Site: Right Arm, BP Position: Sitting, BP Cuff Size: Large Adult) Pulse 76 Ht 154.9 cm (5' 1) Wt (!) 176.4 kg (389 lb) LMP 12/11/2008 SpO2 97% BMI 73.50 kg/m? General: No acute distress, alert and oriented times three, pleasant, non-toxic appearing, obese HEENT: Throat clear, PERRL, neck is supple Heart: Regular rate and rhythm, no murmurs appreciated by me Lungs: Clear to auscultation bilaterally Abdomen: obese Extremities: +edema Skin: No rashes REVIEW OF SYSTEMS *General: As per HPI; no recent fevers/chills/fatigue, or recent hospitalizations. Weight and appetite stable. No recent travel, medication or diet changes. Overall health generally stable. *ER visit for cellulitis HEENT: No history of, or new or out-of-the ordinary, vision, hearing or other ENT problems *CV: No history of CAD, CVA or other cardiovascular disease or conditions. No new or out of the ordinary chest pain/palpitations/BECKI/orthopnea/PND/claudication/other cardiac, valvular or vascular issues *h/o CHF *Respiratory: Denies any known h/o lung disease, disorders or conditions. No new or out of the ordinary SOB/cough/other respiratory disease *JEREMÍAS *GI: Denies any known h/o stomach, liver, pancreas, intestinal or colonic disease, Disorders or conditions. No odyno/dysphagia/abdominal pain/N/V/diarrhea/constipation/bloody stools or other GI issues *GERD : *B)women: LMP?//rash/discharge/pelvic pain/menstrual problems *LMP: 1995 *C) either: No known h/o any chronic kidney; urinary or bladder disease, disorders or conditions; Denies any renal stones/dysuria/hematuria/urgency/polyuria/other issues/concerns *urine leakage Heme/onc: No known h/o any bleeding or clotting disorder, PE/DVT/anemia, or other blood disorder or condition No h/o cancer/bleeding or clotting problems/unusual bruising or other hematologic/oncologic issues Neuro: No new or unusual ARAIZA/weakness/dizziness. No paresthesias/temperature sensation changes or disturbances/weakness/h/o CVA or seizures or other neurologic problems *Endo: No known thryoid or DM or other endocrine or metabolic disease, disorders or conditions *DM2 *Musk/Rheum: Denies any h/o disabling or chronic back or other pain; no h/o gout, SLE, RA or other types of arthritis. No new/unusual arthralgias, bone, muscle or joint problems, h/o autoimmune disease, gout or arthritis *arthritis Autoimmune/Allergy: Skin: No rashes/pruritis/color changes. No other skin problems or issues. *Psych: No h/o anxiety/depression or other psychiatric problems *depression/anxiety Other providers: -Pain Management-Dr. Pacheco -PCP-Dr. Hrebert -Sleep apnea-Dr. Myles -Cardiology-Dr. Kapadia -Psychiatrist-Dr. De León ASSESSMENT: Reviewed principles of energy metabolism, caloric intake and expenditure, and rationale for treatment program. Also reinforced need for reduced calorie, low fat diet and increased physical Activity. 1)Morbid obesity May be considered at acceptable risk to proceed with bariatric surgery if the following conditions met: baseline ECG normal, or stable/unchanged compared to previous examinations. No further noninvasive cardiac testing needed IF the patient has no intermediate clinical risk factors, (IDDM, renal failure, CHF, CAD, and CVA) and has a normal or adequate functional capacity, and depending on the results of tests, consults (and prior records/test results if requested) -has had recent cmp, cbc, lipid, A1c; check remaining labs, CXR; EKG (had recent abd u/s and recent EKG, CXR-all scanned into Epic) 2)sleep disordered breathing: -check sleep study and refer to Sleep Medicine 3)elevated white cell count-has a cellulitis (which has been contributing to her white cell count) Greater than 50% of this 45 minute office visit spent in wfxe-rw-gnyj discussion and/or coordination or development of a plan for the above. Esperanza Fierro MD - December 22, 2017 ADDENDUM: Labs look ok except for slightly low Vitamin D level-escript sent to her [facility] on file. Esperanza Fierro MD 12/13/2017 8:46 AM Signed INSTRUCTIONS: 1) Please contact me (Dr. Fierro) if you have not heard about your test results within a few days after you had them done. Thank you: Contact information: [facility] [place] [facility]/Attention: Dr. Fierro [address] [place] [address] 2) Please check with your insurance company regarding cost/coverage of any tests ordered prior to having them completed. Please consider the following: Resting Metabolic Rate: 2321 -consider looking into the use of a pedometer (does not have to be expensive-Omron, Polar are popular brands) to challenge yourself on daily activity/daily steps-the goal is 10,000 steps per day, or at least to increase your daily physical activity however possible (chair exercises, or looking into water/aqua exercises, lbe-icvwso-fkimojd exercises if you are limited in physical activity by orthopedic or joint/muscle problems). Be creative-park farther away to encourage more walking, take the stairs, stand up/stretch or even take a brisk 5 minute walk every hour you are awake-everything adds up! If you have arthritis, check out the National Arthritis foundation website -you are strongly encouraged to record your daily food and beverage intake-consider using a the internet or phone applications such as [employer], KickSport It or E-Diversify Yourself. Check into: -Karol Stolove?s Chair Dancing Fitness Sit Down and Tone UP (Encore) : Karol Stolove?s Chair Dancing Fitness Life?s a [place]asant [place] (Seated Aerobics to Timeless Democrat Music) -Ashley Neumann-Walk Away the Pounds series of DVDs -you are strongly encouraged to record your daily food and beverage intake-consider using the internet or phone applications such as [employer], KickSport It [place], or E-Diversify Yourself for example. Websites you may find helpful: [employer]: http://acsm.org/ [place] on Exercise: http://www.acefitness.org/ National Arthritis Foundation: Http://www.arthritis.org.sg/ MOTIVATIONAL READIN)The Hunger Fix: (by Vickie Vanessa) 2)No Sweat: (By Daisy Gutierrez) 3)Eating Mindfully: How to End Mindless Eating and Enjoy a Balanced Relationship with Food: (By Keisha Estrada) Dr Keisha Estrada http://Bug Labs.Nerdies/ Augustus De La Cruz http://www.theLive Youth Sports Networkerformindfuleating.org/Annelise Goldberg http://[employer]/ Soraya Avendaño Stop Eating Your Heart Out Referring Provider: KATIE SLATER [[id number]] Allergies As of Date: 12/13/2017 Noted Allergy Reaction LYRICA (PREGABALIN) 08/05/2012 10 - Anaphylaxis Comments: Not sure if accurate. Can take gabapentin. Patient is unsure of reaction. ACCUPRIL (QUINAPRIL HCL) 08/12/2005 5 - Intolerance Comments: dizziness AMLODIPINE 04/24/2008 7 - Swelling Comments: Leg edema ATENOLOL 09/29/2010 7 - Swelling ATORVASTATIN 11/01/2017 5 - Intolerance Comments: Muscle cramps and weakness EFFEXOR (VENLAFAXINE HCL) 09/22/2005 Comments: swelling high blood pressure JANUVIA (SITAGLIPTIN) 09/21/2011 8 - GI Upset 14 - Other: See Comments Comments: Patient states she couldn't eat METOPROLOL 09/21/2009 7 - Swelling MOBIC (MELOXICAM) 08/12/2005 8 - GI Upset PROZAC (FLUOXETINE HCL) 08/12/2005 5 - Intolerance Comments: tremor RISPERIDONE 12/22/2009 1 - Mental Status Change SEROQUEL (QUETIAPINE FUMARATE) 10/05/2006 Comments: hypertension,swelling VANCOMYCIN 08/10/2017 9 - Itching 14 - Other: See Comments Comments: red all over VIOXX (ROFECOXIB) 08/12/2005 8 - GI Upset WELLBUTRIN (BUPROPION HCL) 08/12/2005 5 - Intolerance Comments: nightmares Date Reviewed: 12/13/2017 Reviewed by: Micaela Garcia (Bianca) Van - Fully Assessed Reason for Visit: New Patient [172] Primary Visit Diagnosis:Abnormal weight gain [R63.5] Other Visit Diagnoses:BMI 70 and over, adult ([facility]) [Z68.45] Type 2 diabetes mellitus without complication, unspecified whether group home insulin use ([facility]) [E11.9] SVT (supraventricular tachycardia) ([facility]) [I47.1] Essential hypertension, benign [I10] Gastroesophageal reflux disease without esophagitis [K21.9] Liver disease [K76.9] Snoring [R06.83] Other fatigue [R53.83] Hypersomnolence [G47.10] Excessive daytime sleepiness [G47.19] Vitamin D deficiency [E55.9] Order(s):VITAMIN B12 BLOOD [SQB12] Order #: [id number] FUTURE IRON + TIBC [SQIRON] Order #: [id number] FUTURE TSH BLD [SQTSH] Order #: [id number] FUTURE VITAMIN D 25 HYDROXY [SQVITD] Order #: [id number] FUTURE POLYSOMNOGRAM (PSG)/HOME SLEEP APNEA TESTING (HSAT) [0167858] Order #: [id number] FUTURE FOLATE SERUM [SQSERFOL] Order #: [id number]. #:[id number] cholecalciferol, vitamin D3, 50,000 unit tabTake 1 tablet by mouth once each week for 8 doses.Disp: 4 tabletRfl: 1 Prescriptions as of 12/13/2017 Sig: POTASSIUM CHLORIDE ER 10 MEQ * Take 1 tablet by mouth once d* POLYETHYLENE GLYCOL 3350 17 G* Take 17 g by mouth once daily. INSULIN GLARGINE (U-100) 100 * Inject 30 Units subcutaneousl* BACLOFEN 10 MG TABLET Take 1 tablet by mouth twice * GABAPENTIN 300 MG CAPSULE Take 1 capsule by mouth twice* CLINDAMYCIN HCL 150 MG CAPSULE Take 1 capsule by mouth four * NABUMETONE 500 MG TABLET Take 1 tablet by mouth once d* BLOOD-GLUCOSE METER KIT Glucose Meter of Choice - Kit* NYSTATIN 100,000 UNIT/GRAM TO* Apply 1 application to affect* LINAGLIPTIN 5 MG TABLET Take 1 tablet by mouth once d* SPIRONOLACTONE 25 MG TABLET Take 1 tablet by mouth once d* RANITIDINE 150 MG TABLET Take 1 tablet by mouth twice * FUROSEMIDE 20 MG TABLET Take 1 tablet by mouth once d* DULOXETINE 60 MG CAPSULE,JODI* Take 1 capsule by mouth once * PRIMIDONE 50 MG TABLET TAKE ONE TABLET ONCE DAILY AT* PEN NEEDLE, DIABETIC 32 GAUGE* Use one needle for each dose.* HYDROCODONE 5 MG-ACETAMINOPHE* TAKE ONE TABLET TWICE DAILY BLOOD SUGAR DIAGNOSTIC STRIPS Test blood sugar(s) 2 times d* TRUETEST TEST STRIPS TEST twice a day LANCETS 30 GAUGE Test twice daily Dx: 250.02 TRAZODONE 50 MG TABLET Take 0.5 tablets by mouth padmini* ARIPIPRAZOLE 10 MG TABLET Take 1 tablet by mouth once d* NITROGLYCERIN 0.4 MG SUBLINGU* Dissolve 1 tablet under the t* ASPIRIN 81 MG TABLET,DELAYED * Take 1 tablet by mouth once d* CHOLECALCIFEROL (VITAMIN D3) * Take 1 tablet by mouth once e* Problem List As Of Date 12/13/2017 Noted Resolved Major depressive disorder, recurrent episode, u*INVALID FOR*11/24/2014 Priority: A More... Anxiety state [F41.1] INVALID FOR* BENIGN HYPERTENSION [I10] INVALID FOR* OSTEOARTHROS NOS-UNSPEC [M19.90] INVALID FOR*02/07/2007 ABNL GLANDULAR PAP SMEAR CERVIX [R87.619] INVALID FOR* HYPERPROLACTINEMIA [E22.9] INVALID FOR* IRREGULAR MENSTRUATION [N92.6] INVALID FOR* ESOPHAGEAL REFLUX [K21.9] INVALID FOR* ACUTE GASTRITIS W/O HEMORRHAGE [K29.00] INVALID FOR*02/07/2007 DIAPHRAGMATIC HERNIA [K44.9] INVALID FOR* Unspecified gastritis and gastroduodenitis with*INVALID FOR*07/24/2016 Localized osteoarthrosis not specified whether *INVALID FOR*07/24/2016 Priority: A More... Pain in joint, site unspecified [M25.50] INVALID FOR*07/24/2016 Routine general medical examination at a health*INVALID FOR*11/29/2011 Class: Chronic More... Routine gynecological examination [Z01.419] INVALID FOR*11/29/2011 Class: Chronic More... More... Morbid obesity [E66.01] INVALID FOR* Priority: Very Severe Hyperprolactinemia [E22.1] INVALID FOR*01/30/2012 Obstructive sleep apnea [G47.33] INVALID FOR* Priority: Severe More... Medication side effects [T88.7XXA] INVALID FOR*08/10/2017 SVT (supraventricular tachycardia) [I47.1] Priority: A Type II or unspecified type diabetes mellitus w*INVALID FOR*04/10/2012 Priority: Moderate More... Congestive heart failure [I50.9] INVALID FOR* Spondylolisthesis [M43.10] INVALID FOR* Lumbar facet arthropathy [M47.816] INVALID FOR* DDD (degenerative disc disease), lumbar [M51.36]INVALID FOR* Diabetes mellitus [E11.9] INVALID FOR*11/24/2014 DDD (degenerative disc disease), cervical [M50.*INVALID FOR* DM (diabetes mellitus) (HCC) [E11.9] INVALID FOR* PMB (postmenopausal bleeding) [N95.0] INVALID FOR* Dysthymia [F34.1] INVALID FOR* Major depressive disorder, recurrent episode, m*INVALID FOR* More... Pain disorder with psychological factors [F45.4*INVALID FOR* Diffuse myofascial pain syndrome [M79.18] INVALID FOR* Bilateral primary osteoarthritis of knee [M17.0]INVALID FOR* Obesity, Class III, BMI >= 40 [E66.01] INVALID FOR*10/20/2017 Liver disease [K76.9] INVALID FOR* More... Umbilical hernia without obstruction and withou*INVALID FOR* More... Other instructions from your clinician: INSTRUCTIONS: 1) Please contact me (Dr. Fierro) if you have not heard about your test results within a few days after you had them done. Thank you: Contact information: [facility] [place] M61/Attention: Dr. Fierro [address] [id number] 2) Please check with your insurance company regarding cost/coverage of any tests ordered prior to having them completed. Please consider the following: Resting Metabolic Rate: 2321 -consider looking into the use of a pedometer (does not have to be expensive-Omron, Polar are popular brands) to challenge yourself on daily activity/daily steps-the goal is 10,000 steps per day, or at least to increase your daily physical activity however possible (chair exercises, or looking into water/aqua exercises, mfx-wkygzn-tikvubm exercises if you are limited in physical activity by orthopedic or joint/muscle problems). Be creative-park farther away to encourage more walking, take the stairs, stand up/stretch or even take a brisk 5 minute walk every hour you are awake-everything adds up! If you have arthritis, check out the National Arthritis foundation website -you are strongly encouraged to record your daily food and beverage intake-consider using a the internet or phone applications such as [employer], Lose It or E-Diversify Yourself. Check into: -Karol Stolove?s Chair Dancing Fitness Sit Down and Tone UP (Encore) : Karol Stolove?s Chair Dancing Fitness Life?s a [place] (Seated Aerobics to Timeless Democrat Music) -Ashley Neumann-Walk Away the Pounds series of DVDs -you are strongly encouraged to record your daily food and beverage intake-consider using the internet or phone applications such as MyFitness Pal, Lose It [place], or SparkPeople for example. Websites you may find helpful: [employer]: http://acsm.org/ [place] on Exercise: http://www.acefitness.org/ National Arthritis Foundation: Http://www.arthritis.org.sg/ MOTIVATIONAL READIN)The Hunger Fix: (by Vickie Vanessa) 2)No Sweat: (By Daisy Gutierrez) 3)Eating Mindfully: How to End Mindless Eating and Enjoy a Balanced Relationship with Food: (By Keisha Estrada) Dr Keisha Estrada http://Visto/ Augustus De La Cruz http://www.The Campaign Solution.Traction/Annelise Goldberg http://[employer]/ Soraya Avendaño Stop Eating Your Heart Out Prescriptions ordered this encounter Disp Refills Start End CHOLECALCIFEROL (VITAMIN D3) 50,000 * 4 ta* 1 12/22/2017 02/10/2018 Route: ORAL Sig: Take 1 tablet by mouth once each week for 8 doses. Disposition: Return if symptoms worsen or fail to improve. Follow-up and Disposition History Recorded Encounter Status:Closed by ESPERANZA FIERRO MD on 12/22/17 PROGRESS Observed: 12/13/2017 Status: COMPLETED Source: [place] 8:52 AM [facility] REPOSITORY [facility] ID: [id number] Author: Micaela Tate Service: (none) Author Type: Registered Dietitian Type: Progress Notes Filed: 12/13/2017 4:36 PM Note Text: [facility] AMBULATORY PATIENT EDUCATION NOTE-Shared Nutrition Group TOPIC: LIFE STYLE CHANGES: Pre-op weight loss surgery (RYGB): Diet and Exercise PAIN: Is the patient having any pain that is interfering with oral / enteral intake? No: 0 on a scale of 0 to 10 Diet History: Do you typically skip meals? No How often do you eat deep fried foods (chips, [place] fries, fried meats, etc) Rarely (1 - 2 times per week) How often do you eat sweets (cakes, cookies, candy, ice cream, pie) Rarely (1 - 2 times per week) Breakfast - 1 piece of [place]uran toast Snack - jello, pudding Lunch - meat/veggies/potatoes Snack - apple Dinner - meat/veggies/potatoes Snack - water, coffee, tea Fluids - water, coffee, tea Exercise - 3/week 15 minutes- walking, arm exercises Diagnosis: has not changed. Allergies: Lyrica [Pregabalin]; Accupril [Quinapril Hcl]; Amlodipine; Atenolol; Atorvastatin; Effexor [Venlafaxine Hcl]; Januvia [Sitagliptin]; Metoprolol; Mobic [Meloxicam]; Prozac [Fluoxetine Hcl]; Risperidone; Seroquel [Quetiapine Fumarate]; Vancomycin; Vioxx [Rofecoxib]; Wellbutrin [Bupropion Hcl] Medications: Current Outpatient Prescriptions: potassium chloride ER (K-DUR, KLOR-CON) 10 mEq tablet Take 1 tablet by mouth once daily. Disp: 60 tablet Rfl: 5 polyethylene glycol 3350 (MIRALAX, GLYCOLAX) 17 gram/dose powder Take 17 g by mouth once daily. Disp: 1 Bottle Rfl: 11 insulin glargine (BASAGLAR KWIKPEN U-100 INSULIN) 100 unit/mL (3 mL) inpn Inject 30 Units subcutaneously daily at bedtime. Disp: 3 Pen Rfl: 5 baclofen (LIORESAL) 10 mg tablet Take 1 tablet by mouth twice daily. Disp: 60 tablet Rfl: 1 gabapentin (NEURONTIN) 300 mg capsule Take 1 capsule by mouth twice daily for 90 days. Disp: 60 capsule Rfl: 2 clindamycin (CLEOCIN) 150 mg capsule Take 1 capsule by mouth four times daily. Disp: 40 capsule Rfl: 0 nabumetone (RELAFEN) 500 mg tablet Take 1 tablet by mouth once daily. TAKE WITH FOOD Disp: 30 tablet Rfl: 2 Blood-Glucose Meter monitoring kit Glucose Meter of Choice - Kit - Dx: Type 2 DM - Controlled E11.9 Use twice daily as directed Disp: 1 Each Rfl: 0 nystatin (MYCOSTATIN) cream Apply 1 application to affected area twice daily. Disp: 1 Tube Rfl: 1 linagliptin (TRADJENTA) 5 mg tab Take 1 tablet by mouth once daily. Disp: 90 tablet Rfl: 3 spironolactone (ALDACTONE) 25 mg tablet Take 1 tablet by mouth once daily. Disp: 90 tablet Rfl: 3 ranitidine (ZANTAC) 150 mg tablet Take 1 tablet by mouth twice daily. Disp: 180 tablet Rfl: 3 furosemide (LASIX) 20 mg tablet Take 1 tablet by mouth once daily. Disp: 90 tablet Rfl: 3 DULoxetine (CYMBALTA) 60 mg capsule Take 1 capsule by mouth once daily. Disp: 90 capsule Rfl: 3 primidone (MYSOLINE) 50 mg tablet TAKE ONE TABLET ONCE DAILY AT BEDTIME Disp: 30 tablet Rfl: 11 Insulin Hamlin, Disposable, (BD ULTRA-FINE MADI PEN NEEDLE) 32 gauge x /32 ndle Use one needle for each dose. 1/day. Disp: 100 Each Rfl: 11 HYDROcodone-acetaminophen (NORCO) 5-325 mg per tablet TAKE ONE TABLET TWICE DAILY Disp: Rfl: blood sugar diagnostic (BLOOD GLUCOSE TEST) test strip Test blood sugar(s) 2 times daily. Dx: Type 2 DM - Controlled E11.9 Insulin: No Disp: 100 Strip Rfl: 11 TRUETEST TEST STRIPS test strip TEST twice a day Disp: 100 Strip Rfl: 11 lancets (TRUEPLUS LANCETS) 30 gauge misc Test twice daily Dx: 250.02 Disp: 200 Each Rfl: 4 traZODone (DESYREL) 50 mg tablet Take 0.5 tablets by mouth daily at bedtime. Disp: 30 tablet Rfl: 5 ARIPiprazole (ABILIFY) 10 mg tablet Take 1 tablet by mouth once daily. Disp: 30 tablet Rfl: 5 nitroglycerin sublingual (NITROQUICK) 0.4 mg SL tablet Dissolve 1 tablet under the tongue as needed. FOR CHEST PAIN. IF NO RELIEF CALL 911 Disp: 25 tablet Rfl: 6 aspirin, enteric coated (ECOTRIN LOW STRENGTH) 81 mg EC tablet Take 1 tablet by mouth once daily. Disp: Rfl: 0 No current facility-administered medications for this visit. (currently taking) ; Anthropometrics: Height: Last 1 Encounter Ht Readings: Date: Ht: 07/20/2017 154.9 cm (5' 1) Current weight: Last 1 Encounter Wt Readings: Date: Wt: 10/29/2017 179.6 kg (396 lb) Body mass index is 73.33 kg/m?. Resting Metabolic Rate: 2321 NUTRITION ASSESSMENT: Malnutrition Screening Significant unintentional weight loss? No Eating less than 75% of usual intake for more than 2 weeks? No RECOMMENDED MALNUTRITION DIAGNOSIS: NO MALNUTRITION IDENTIFIED Educational materials provided: Your Guide To surgery READINESS TO LEARN Cognitive ability: Alert and oriented Motivation to learn: Eager Interested Family support: Unable to assess - Family not present Instruction provided to: Patient Patient learns best by: Multiple Methods Factors affecting learning: None Physical limitations affecting learning: None Likelihood of Adherence: High Height and weight taken today. Presents for initial consultation for pre op RYGB with BMI of 73.33- Class 4 obesity. Significant medical comorbidities include type 2 diabetes, HTN, JEREMÍAS, GERD. Patient has unrealistic weight loss expectations, anticipating weight loss of 200# following surgery (75% EBW). Patient has fair understanding of weight loss surgery and nutritional implications following surgery. Previous diet attempts include WW, Slim Fast. Weight history significant for weight cycling. Highest weight: 424# Lowest weight: 270# Previous diet attempts: WW (20#), Slim Fast (10#) Most weight loss: 20# Motivation for surgery: more independence, bad knees, back back Weight loss expectations 200 lbs. Diet recall indicates 3 meals per day with minimal snacks; overall intake is balanced with all food groups represented, however, because patient is not able to produce adequate energy expenditure, calorie intake may not facilitate weight loss and should would benefit from initiation of low calorie partial liquid diet. She reports being able to do chair exercises and is encouraged to increase either duration or frequency to help build strength and endurance as she prepares for surgery. [place] body weight is 122 lbs. Excess body weight is 267 lbs. Goal weight pre-op is 362 lbs. Protein goal is 67-83 gm (based on 1.2-1.5 gm/kg ideal body weight) Patient meets the National Institutes of Health guidelines for weight loss surgery and has [employer] therefore is required to complete 0 months of Nutrition Intervention for clearance for surgery. Will need to have a visit with Dr. Fierro/Dr. Ayon/Doretha Bowen also before clearance. Patient does meet National Institutes of Health guidelines for weight loss surgery, however would like to see more of an effort in making dietary changes before giving clearance. I anticipate at least 2- 3 nutritional follow-up visits prior to clearance for surgery. Nutrition Diagnosis: Overweight Obesity, related to; decreased energy needs, as evidenced by BMI above normative standard for age and gender. Nutrition Intervention: Modify type and amount of intake at meals and snacks 1. Read Nutritional Guidelines Section of Your Guide to Surgery by next session 2. Begin [id number] calorie partial liquid diet (refer to handout) Breakfast: protein shake (200-250 calories, 15+ grams protein) plus 1 piece of fruit Lunch: protein shake (200-250 calories, 15+ grams protein) plus 1 piece of fruit Dinner: 4-5 ounces lean protein, 1 cup starch (bread/pasta/potatoes/corn/peas), unlimited non starchy vegetables 1 snack (< 150 calories) should contain protein 3. Physical activity: continue with walking and arm exercises; try to increase from 15 minutes to 25-30, can be divided into 2- 15 minute sessions 4. Drink 64 ounces per day water. Fluids should follow these guidelines: No carbonation, no caffeine, no calories, no alcohol. Pre-op goal weight: 362# Protein goal: 67-83 grams Nutrition Monitoring AND Evaluation: 1-2 # weight loss per week prior to surgery Criteria: Weight check Need for Follow up: 1 month Referred/Supervised by: Nohemy/Nany Caro Billing Type: Group/30 minutes Number of Increments: 2 (60 minutes) Signed by: Micaela Tate MS,RD,LD PROGRESS Observed: 12/13/2017 Status: COMPLETED Source: [place] 8:43 AM [facility] REPOSITORY [facility] ID: [id number] Author: Esperanza Fierro Service: (none) Author Type: Physician Type: Progress Notes Filed: 12/22/2017 11:52 AM Note Text: CC/HPI: 57 year old lady presents for medical evaluation prior to anticipated medical/surgical treatment of obesity. The patient is interested in surgical weight loss. Goal/motivation for weight loss? To get more healthy and be more independent Weight gain history: Age of onset: Whole life Inciting/contributing factors to weight gain: multiple factors What gets in the way of your weight loss? Has trouble getting much exercise Minimum weight: 270# Maximum weight: 424# What is your weight loss goal? 150# Previous weight loss attempts: WW; diets at home; Atkins; numerous self-directed diets Medications (prescription or non-prescription) for weight loss? Yes-weight loss pills What has worked the best so far for you in the past? Rx weight loss pills History of Eating disorders? (bulimia, anorexia, binge eating?) no Family history of obesity? yes Diet: -B: [place]uran toast -L: Chicken, mashed potatoes, mixed vegetables -D: --Snacks: Apples -Beverages: Water, tea Exercise: Has been doing arm exercises and walking tries to do daily Functional Capacity: -Walk 4 blocks on level ground without symptoms? Can walk 15 minutes and uses a walker at home; has a wheelchair to use at home only for long distances -Climb 2 flights of stairs without symptoms? No-limited by strength -heavy housework without symptoms? Has a home health aide who is helping her out with this Previous stress testing/cardiac testing and why? Yes-chemical stress test; heart cath; Holter monitoring done to make sure she had no blockage Sleep apnea screen: Has been awhile; maybe 2-3 or years - Dr. 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0 pG 27.9 MCHC 30.5 - 36.0 g/dL 32.4 RDW-CV 11.5 - 15.0 % 13.2 Platelet Count 150 - 400 k/uL 229 MPV 9.0 - 12.7 fL 11.6 Neut% % 91.3 Abs Neut (ANC) 1.45 - 7.50 k/uL 12.21 (H) Lymph% % 4.1 Abs Lymph 1.00 - 4.00 k/uL 0.55 (L) [place]% % 3.7 Abs [place] <0.87 k/uL 0.50 Eosin% % 0.7 Abs Eosin <0.46 k/uL 0.10 Baso% % 0.2 Abs Baso <0.11 k/uL 0.03 Nucleated Reds 0 /100 WBC 0.0 Absolute nRBC <0.01 k/uL <0.01 Diff Type Auto Diff Hemoglobin A1C 4.3 - 5.6 % 6.8 (H) Estimated Average Glucose mg/dL 148 Component Latest Ref Rng AND Units 07/25/2017 Alkaline Phosphatase (ALKISO) 32 - 117 U/L 158 (H) Alk Phos Bone % 10.7 - 68.3 % 23.8 Bone Fraction 12.0 - 50.0 U/L 37.6 Alk Phos Liver % 26.0 - 86.2 % 76.2 Liver Fraction 15.0 - 66.0 U/L 120.4 (H) Alk Phos Intestine % 0.0 - 24.2 % 0.0 Intestine Fraction 0.0 - 15.3 U/L 0.0 Component Latest Ref Rng AND Units 07/20/2017 Protein, Total 6.3 - 8.0 g/dL 7.3 Albumin 3.9 - 4.9 g/dL 4.3 Calcium 8.5 - 10.2 mg/dL 9.6 Bilirubin, Total 0.2 - 1.3 mg/dL 0.4 Alkaline Phosphatase 32 - 117 U/L 173 (H) AST 13 - 35 U/L 17 Glucose 74 - 99 mg/dL 177 (H) BUN 7 - 21 mg/dL 17 Creatinine 0.58 - 0.96 mg/dL 0.61 Sodium 136 - 144 mmol/L 139 Potassium 3.7 - 5.1 mmol/L 4.5 Chloride 97 - 105 mmol/L 97 CO2 22 - 30 mmol/L 28 Anion Gap 9 - 18 mmol/L 14 ALT 7 - 38 U/L 15 eGFR- >60 eGFR-All Other Races . >60 Cholesterol, Total <200 mg/dL 174 Triglyceride <150 mg/dL 199 (H) HDL Cholesterol >39 mg/dL 42 LDL Cholesterol <100 mg/dL 92 Non HDL Cholesterol <130 mg/dL 132 (H) Fasting Time hrs 5 VLDL Cholesterol <30 mg/dL 40 (H) TC:HDL Ratio <5.10 4.14 LDL:HDL Ratio <2.54 2.19 IMAGING: -DATE OF EXAM: Jul 30 2017 US ABD SPLEEN IMPRESSION: ?Coarse, heterogeneous liver echotexture, suggesting hepatocellular disease, without focal hepatic lesion. ?Status post cholecystectomy. ?Splenomegaly, without focal splenic lesion. ADDENDUM #1 Please note that there is an error in this report. The liver measures 15.7 cm, not the spleen. There are findings of hepatocellular disease. No focal hepatic lesion is identified. ?The patient does not have splenomegaly. The spleen measures approximately 11.5 cm. -DATE OF EXAM: Mar 11 2010: NM CARDIAC PERF STRESS/PHARM IMPRESSION: NORMAL STRESS SPECT MYOCARDIAL PERFUSION SCAN. ?NO REVERSIBLE DEFECTS TO DEFINE ISCHEMIA. ?NORMAL LEFT VENTRICULAR SIZE AND SYSTOLIC FUNCTION. PROC: CARDIAC: -11/07/2017-External Stress Test DOS: 10/30/2017 Pharmacologic Myocardial Perfusion Stress Test Conclusion: Probably normal pharmacologic myocardial perfusion stress test. No obvious ischemia noted. (Akhil Dodson MD) (Please see the scanned document in [employer] for the exact report details) -11/07/2017-External Echocardiogram DOS: 10/29/2017 Interpretation Summary Normal LV size. Left ventricular systolic function is normal. The estimated ejection fraction is 55% Normal diastology for age. .. (Please see the scanned document in [employer] for the exact report details) -06/07/2012-External Cardiac Catheterization DOS: 05/23/2012 Left heart catheterization Conclusion: 1. Normal left main coronary artery. 2. Left anterior descending artery, which is angiographically normal. 3. Left circumflex artery, which is angiographically normal. 4. Dominant right coronary artery, which is angiographically normal. 5. Preserved ejection fraction. RECOMMENDATIONS: Based on the angiographic findings, I would recommend continued medical therapy. MEDS: See [facility] PMH: -htn -DM-Tradjenta 5 mg no longer taking the glimiperide -GERD-ranitidine 150 mg -hiatal hernia -JEREMÍAS -bofdusimn-xxhfb-zmozmxi at knee replacement surgery down the road and low back -depression-on Ability and Cymbalta -h/o CHF-lasix 20 mg Q am, and potassium 10 meq and Aldactone 25 mg -degenerative disc disease and bulging discs-and baclofen 10 mg bid; no longer taking the indomethacin -on aspirin for prevention -insomnia-on trazodone -neuropathy-on gabapentin -tremors-on Primidone -obesity -on Nabumetone takes once daily 500 mg -has h/o SVT -no h/o [place], CAD, For women: control method: none PSHX: -hernia 11/24/2016 -hysteroscopy 12/17/2014 -cataract right-10/27/2014 -cataract left 09/03/2014 -ablation left side back 03/2014 -ablation right side (back)-03/2014 -heart cath 05/23/2012 -gallbladder 05/15/2008 potassium chloride ER (K-DUR, KLOR-CON) 10 mEq tablet Take 1 tablet by mouth once daily. polyethylene glycol 3350 (MIRALAX, GLYCOLAX) 17 gram/dose powder Take 17 g by mouth once daily. insulin glargine (BASAGLAR KWIKPEN U-100 INSULIN) 100 unit/mL (3 mL) inpn Inject 30 Units subcutaneously daily at bedtime. baclofen (LIORESAL) 10 mg tablet Take 1 tablet by mouth twice daily. gabapentin (NEURONTIN) 300 mg capsule Take 1 capsule by mouth twice daily for 90 days. clindamycin (CLEOCIN) 150 mg capsule Take 1 capsule by mouth four times daily. nabumetone (RELAFEN) 500 mg tablet Take 1 tablet by mouth once daily. TAKE WITH FOOD Blood-Glucose Meter monitoring kit Glucose Meter of Choice - Kit - Dx: Type 2 DM - Controlled E11.9 Use twice daily as directed nystatin (MYCOSTATIN) cream Apply 1 application to affected area twice daily. linagliptin (TRADJENTA) 5 mg tab Take 1 tablet by mouth once daily. spironolactone (ALDACTONE) 25 mg tablet Take 1 tablet by mouth once daily. ranitidine (ZANTAC) 150 mg tablet Take 1 tablet by mouth twice daily. furosemide (LASIX) 20 mg tablet Take 1 tablet by mouth once daily. DULoxetine (CYMBALTA) 60 mg capsule Take 1 capsule by mouth once daily. primidone (MYSOLINE) 50 mg tablet TAKE ONE TABLET ONCE DAILY AT BEDTIME Insulin Hamlin, Disposable, (BD ULTRA-FINE MADI PEN NEEDLE) 32 gauge x 5/32 ndle Use one needle for each dose. 1/day. HYDROcodone-acetaminophen (NORCO) 5-325 mg per tablet TAKE ONE TABLET TWICE DAILY blood sugar diagnostic (BLOOD GLUCOSE TEST) test strip Test blood sugar(s) 2 times daily. Dx: Type 2 DM - Controlled E11.9 Insulin: No TRUETEST TEST STRIPS test strip TEST twice a day lancets (TRUEPLUS LANCETS) 30 gauge misc Test twice daily Dx: 250.02 traZODone (DESYREL) 50 mg tablet Take 0.5 tablets by mouth daily at bedtime. ARIPiprazole (ABILIFY) 10 mg tablet Take 1 tablet by mouth once daily. nitroglycerin sublingual (NITROQUICK) 0.4 mg SL tablet Dissolve 1 tablet under the tongue as needed. FOR CHEST PAIN. IF NO RELIEF CALL 911 aspirin, enteric coated (ECOTRIN LOW STRENGTH) 81 mg EC tablet Take 1 tablet by mouth once daily. PAST MEDICAL HISTORY Diagnosis Date - Abnormal glandular Papanicolaou smear of cervix 05/30/05 ABNL GLANDULAR PAP SMEAR CERVIX - Acute gastritis without mention of hemorrhage - Anxiety state, unspecified - Arrhythmia - Chronic cholecystitis - Chronic obstructive pulmonary disease (COPD) ([facility]) - Congestive heart failure (HCC) 10/03/2011 - Diabetes ([facility]) - diabetes II 2010 - Diaphragmatic hernia without mention of obstruction or gangrene - Dysthymic disorder Depression (non-psychotic) - Esophageal reflux - Essential hypertension, benign - Generalized OA - Localized osteoarthrosis not specified whether primary or secondary, lower leg - Major depressive disorder, recurrent episode - Mucous polyp of cervix 07/19/05 - Other and unspecified anterior pituitary hyperfunction 10/13/05 elevated prolactin level-was normal in 2011 - PMH - PAST MEDICAL HISTORY OF sleep apnea - PMH - PAST MEDICAL HISTORY OF sleep apnea - SVT (supraventricular tachycardia) (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 PAST SURGICAL HISTORY Procedure Laterality Date - CERVICAL BIOPSY OR EXCISION 07/19/05 endocervical polyp - COLONOSCOP W/ OR W/O [facility] SPEC 01/09/2012 Colonoscopy repeat 10 years - COLPOSCOPY (VAGINOSCOPY) Colposcopy - EGD W/O [facility] SPECIMEN W/BX 01/16/07 - EGD W/O OR W/BRUSH/WASH 01/09/2012 EGD - HYSTEROSCOPY DX 12/17/2014 [facility] - LAP CHOLECYSTECT/CHOLANGIOGRAPHY 05/15/08 Review of patient's allergies indicates: [employer]am[employer] Inhibitors Cough Sulfa (Sulfonamide * Unknown Ultram (Tramadol Hc* Hives PHYSICAL EXAMINATION: BP 144/84 (BP Site: Right Arm, BP Position: Sitting, BP Cuff Size: Large Adult) Pulse 76 Ht 154.9 cm (5' 1) Wt (!) 176.4 kg (389 lb) LMP 12/11/2008 SpO2 97% BMI 73.50 kg/m? General: No acute distress, alert and oriented times three, pleasant, non-toxic appearing, obese HEENT: Throat clear, PERRL, neck is supple Heart: Regular rate and rhythm, no murmurs appreciated by me Lungs: Clear to auscultation bilaterally Abdomen: obese Extremities: +edema Skin: No rashes REVIEW OF SYSTEMS *General: As per HPI; no recent fevers/chills/fatigue, or recent hospitalizations. Weight and appetite stable. No recent travel, medication or diet changes. Overall health generally stable. *ER visit for cellulitis HEENT: No history of, or new or out-of-the ordinary, vision, hearing or other ENT problems *CV: No history of CAD, CVA or other cardiovascular disease or conditions. No new or out of the ordinary chest pain/palpitations/BECKI/orthopnea/PND/claudication/other cardiac, valvular or vascular issues *h/o CHF *Respiratory: Denies any known h/o lung disease, disorders or conditions. No new or out of the ordinary SOB/cough/other respiratory disease *JEREMÍAS *GI: Denies any known h/o stomach, liver, pancreas, intestinal or colonic disease, Disorders or conditions. No odyno/dysphagia/abdominal pain/N/V/diarrhea/constipation/bloody stools or other GI issues *GERD : *B)women: LMP?//rash/discharge/pelvic pain/menstrual problems *LMP: 1995 *C) either: No known h/o any chronic kidney; urinary or bladder disease, disorders or conditions; Denies any renal stones/dysuria/hematuria/urgency/polyuria/other issues/concerns *urine leakage Heme/onc: No known h/o any bleeding or clotting disorder, PE/DVT/anemia, or other blood disorder or condition No h/o cancer/bleeding or clotting problems/unusual bruising or other hematologic/oncologic issues Neuro: No new or unusual ARAIZA/weakness/dizziness. No paresthesias/temperature sensation changes or disturbances/weakness/h/o CVA or seizures or other neurologic problems *Endo: No known thryoid or DM or other endocrine or metabolic disease, disorders or conditions *DM2 *Musk/Rheum: Denies any h/o disabling or chronic back or other pain; no h/o gout, SLE, RA or other types of arthritis. No new/unusual arthralgias, bone, muscle or joint problems, h/o autoimmune disease, gout or arthritis *arthritis Autoimmune/Allergy: Skin: No rashes/pruritis/color changes. No other skin problems or issues. *Psych: No h/o anxiety/depression or other psychiatric problems *depression/anxiety Other providers: -Pain Management-Dr. Pacheco -PCP-Dr. Herbert -Sleep apnea-Dr. Myles -Cardiology-Dr. Kapadia -Psychiatrist-Dr. De León ASSESSMENT: Reviewed principles of energy metabolism, caloric intake and expenditure, and rationale for treatment program. Also reinforced need for reduced calorie, low fat diet and increased physical Activity. 1)Morbid obesity May be considered at acceptable risk to proceed with bariatric surgery if the following conditions met: baseline ECG normal, or stable/unchanged compared to previous examinations. No further noninvasive cardiac testing needed IF the patient has no intermediate clinical risk factors, (IDDM, renal failure, CHF, CAD, and CVA) and has a normal or adequate functional capacity, and depending on the results of tests, consults (and prior records/test results if requested) -has had recent cmp, cbc, lipid, A1c; check remaining labs, CXR; EKG (had recent abd u/s and recent EKG, CXR-all scanned into Epic) 2)sleep disordered breathing: -check sleep study and refer to Sleep Medicine 3)elevated white cell count-has a cellulitis (which has been contributing to her white cell count) Greater than 50% of this 45 minute office visit spent in [id number] discussion and/or coordination or development of a plan for the above. Esperanza Fierro MD - December 22, 2017 ADDENDUM: Labs look ok except for slightly low Vitamin D level-escript sent to her [facility] on file. PROGRESS Observed: 12/12/2017 Status: COMPLETED Source: [place] 12:41 PM [facility] REPOSITORY O ID: [id number] Author: Damaso (Phd) Flavio Service: (none) Author Type: Psychologist Type: Progress Notes Filed: 12/12/2017 12:42 PM Note Text: [facility] Progress Note December 12, 2017 Patient was a no-show for psychology testing. Damaso Muniz, Ph.D. Psychologist PROGRESS Observed: 12/12/2017 Status: COMPLETED Source: [place] 12:40 PM [facility] REPOSITORY HNO ID: [id number] Author: Damaso (Phd) Flavio Service: (none) Author Type: Psychologist Type: Progress Notes Filed: 12/12/2017 12:41 PM Note Text: [facility] Progress Note December 12, 2017 Patient was a no-show for evaluation. Damaso Muniz, Ph.D. Psychologist CNOV Observed: 12/12/2017 Status: COMPLETED Source: [place] 10:00 AM [facility] REPOSITORY Office Visit ([facility]PS[facility]) KATHLEEN KHAN V ([id number]) 1960 F Date Time Provider Department 12/12/17 10:00 AM DAMASO MUNIZ (PHD) [facility] During your visit today, we recorded the following information about you: Damaso Muniz, PhD 12/12/2017 12:41 PM Signed [facility] Progress Note December 12, 2017 Patient was a no-show for evaluation. Damaso Muniz, Ph.D. Psychologist Referring Provider: SELF [[id number]] Allergies As of Date: 12/12/2017 Noted Allergy Reaction LYRICA (PREGABALIN) 08/05/2012 10 - Anaphylaxis Comments: Not sure if accurate. Can take gabapentin. Patient is unsure of reaction. ACCUPRIL (QUINAPRIL HCL) 08/12/2005 5 - Intolerance Comments: dizziness AMLODIPINE 04/24/2008 7 - Swelling Comments: Leg edema ATENOLOL 09/29/2010 7 - Swelling ATORVASTATIN 11/01/2017 5 - Intolerance Comments: Muscle cramps and weakness EFFEXOR (VENLAFAXINE HCL) 09/22/2005 Comments: swelling high blood pressure JANUVIA (SITAGLIPTIN) 09/21/2011 8 - GI Upset 14 - Other: See Comments Comments: Patient states she couldn't eat METOPROLOL 09/21/2009 7 - Swelling MOBIC (MELOXICAM) 08/12/2005 8 - GI Upset PROZAC (FLUOXETINE HCL) 08/12/2005 5 - Intolerance Comments: tremor RISPERIDONE 12/22/2009 1 - Mental Status Change SEROQUEL (QUETIAPINE FUMARATE) 10/05/2006 Comments: hypertension,swelling VANCOMYCIN 08/10/2017 9 - Itching 14 - Other: See Comments Comments: red all over VIOXX (ROFECOXIB) 08/12/2005 8 - GI Upset WELLBUTRIN (BUPROPION HCL) 08/12/2005 5 - Intolerance Comments: nightmares Date Reviewed: 11/02/2017 Reviewed by: Mikayla Todd Ma - Fully Assessed Primary Visit Diagnosis:NO SHOW Prescriptions as of 12/12/2017 Sig: POTASSIUM CHLORIDE ER 10 MEQ * Take 1 tablet by mouth once d* POLYETHYLENE GLYCOL 3350 17 G* Take 17 g by mouth once daily. INSULIN GLARGINE (U-100) 100 * Inject 30 Units subcutaneousl* BACLOFEN 10 MG TABLET Take 1 tablet by mouth twice * GABAPENTIN 300 MG CAPSULE Take 1 capsule by mouth twice* CLINDAMYCIN HCL 150 MG CAPSULE Take 1 capsule by mouth four * NABUMETONE 500 MG TABLET Take 1 tablet by mouth once d* BLOOD-GLUCOSE METER KIT Glucose Meter of Choice - Kit* NYSTATIN 100,000 UNIT/GRAM TO* Apply 1 application to affect* LINAGLIPTIN 5 MG TABLET Take 1 tablet by mouth once d* SPIRONOLACTONE 25 MG TABLET Take 1 tablet by mouth once d* RANITIDINE 150 MG TABLET Take 1 tablet by mouth twice * FUROSEMIDE 20 MG TABLET Take 1 tablet by mouth once d* DULOXETINE 60 MG CAPSULE,JODI* Take 1 capsule by mouth once * PRIMIDONE 50 MG TABLET TAKE ONE TABLET ONCE DAILY AT* PEN NEEDLE, DIABETIC 32 GAUGE* Use one needle for each dose.* HYDROCODONE 5 MG-ACETAMINOPHE* TAKE ONE TABLET TWICE DAILY BLOOD SUGAR DIAGNOSTIC STRIPS Test blood sugar(s) 2 times d* TRUETEST TEST STRIPS TEST twice a day LANCETS 30 GAUGE Test twice daily Dx: 250.02 TRAZODONE 50 MG TABLET Take 0.5 tablets by mouth padmini* ARIPIPRAZOLE 10 MG TABLET Take 1 tablet by mouth once d* NITROGLYCERIN 0.4 MG SUBLINGU* Dissolve 1 tablet under the t* ASPIRIN 81 MG TABLET,DELAYED * Take 1 tablet by mouth once d* Problem List As Of Date 12/12/2017 Noted Resolved Major depressive disorder, recurrent episode, u*INVALID FOR*11/24/2014 Priority: A More... Anxiety state [F41.1] INVALID FOR* BENIGN HYPERTENSION [I10] INVALID FOR* OSTEOARTHROS NOS-UNSPEC [M19.90] INVALID FOR*02/07/2007 ABNL GLANDULAR PAP SMEAR CERVIX [R87.619] INVALID FOR* HYPERPROLACTINEMIA [E22.9] INVALID FOR* IRREGULAR MENSTRUATION [N92.6] INVALID FOR* ESOPHAGEAL REFLUX [K21.9] INVALID FOR* ACUTE GASTRITIS W/O HEMORRHAGE [K29.00] INVALID FOR*02/07/2007 DIAPHRAGMATIC HERNIA [K44.9] INVALID FOR* Unspecified gastritis and gastroduodenitis with*INVALID FOR*07/24/2016 Localized osteoarthrosis not specified whether *INVALID FOR*07/24/2016 Priority: A More... Pain in joint, site unspecified [M25.50] INVALID FOR*07/24/2016 Routine general medical examination at a health*INVALID FOR*11/29/2011 Class: Chronic More... Routine gynecological examination [Z01.419] INVALID FOR*11/29/2011 Class: Chronic More... More... Morbid obesity [E66.01] INVALID FOR* Priority: Very Severe Hyperprolactinemia [E22.1] INVALID FOR*01/30/2012 Obstructive sleep apnea [G47.33] INVALID FOR* Priority: Severe More... Medication side effects [T88.7XXA] INVALID FOR*08/10/2017 SVT (supraventricular tachycardia) [I47.1] Priority: A Type II or unspecified type diabetes mellitus w*INVALID FOR*04/10/2012 Priority: Moderate More... Congestive heart failure [I50.9] INVALID FOR* Spondylolisthesis [M43.10] INVALID FOR* Lumbar facet arthropathy [M47.816] INVALID FOR* DDD (degenerative disc disease), lumbar [M51.36]INVALID FOR* Diabetes mellitus [E11.9] INVALID FOR*11/24/2014 DDD (degenerative disc disease), cervical [M50.*INVALID FOR* DM (diabetes mellitus) (HCC) [E11.9] INVALID FOR* PMB (postmenopausal bleeding) [N95.0] INVALID FOR* Dysthymia [F34.1] INVALID FOR* Major depressive disorder, recurrent episode, m*INVALID FOR* More... Pain disorder with psychological factors [F45.4*INVALID FOR* Diffuse myofascial pain syndrome [M79.18] INVALID FOR* Bilateral primary osteoarthritis of knee [M17.0]INVALID FOR* Obesity, Class III, BMI >= 40 [E66.01] INVALID FOR*10/20/2017 Liver disease [K76.9] INVALID FOR* More... Umbilical hernia without obstruction and withou*INVALID FOR* More... Encounter Status:Closed by DAMASO MUNIZ PHD on 12/12/17 CNOV Observed: 12/12/2017 Status: COMPLETED Source: [place] 10:00 AM [facility] REPOSITORY Office Visit ([facility]PS[facility]) KATHLEEN KHAN V ([id number]) 1960 F Date Time Provider Department 12/12/17 10:00 AM [facility] During your visit today, we recorded the following information about you: Damaso Muniz, PhD 12/12/2017 12:42 PM Signed [facility] Progress Note December 12, 2017 Patient was a no-show for psychology testing. Damaso Muniz, Ph.D. Psychologist Referring Provider: SELF [[id number]] Allergies As of Date: 12/12/2017 Noted Allergy Reaction LYRICA (PREGABALIN) 08/05/2012 10 - Anaphylaxis Comments: Not sure if accurate. Can take gabapentin. Patient is unsure of reaction. ACCUPRIL (QUINAPRIL HCL) 08/12/2005 5 - Intolerance Comments: dizziness AMLODIPINE 04/24/2008 7 - Swelling Comments: Leg edema ATENOLOL 09/29/2010 7 - Swelling ATORVASTATIN 11/01/2017 5 - Intolerance Comments: Muscle cramps and weakness EFFEXOR (VENLAFAXINE HCL) 09/22/2005 Comments: swelling high blood pressure JANUVIA (SITAGLIPTIN) 09/21/2011 8 - GI Upset 14 - Other: See Comments Comments: Patient states she couldn't eat METOPROLOL 09/21/2009 7 - Swelling MOBIC (MELOXICAM) 08/12/2005 8 - GI Upset PROZAC (FLUOXETINE HCL) 08/12/2005 5 - Intolerance Comments: tremor RISPERIDONE 12/22/2009 1 - Mental Status Change SEROQUEL (QUETIAPINE FUMARATE) 10/05/2006 Comments: hypertension,swelling VANCOMYCIN 08/10/2017 9 - Itching 14 - Other: See Comments Comments: red all over VIOXX (ROFECOXIB) 08/12/2005 8 - GI Upset WELLBUTRIN (BUPROPION HCL) 08/12/2005 5 - Intolerance Comments: nightmares Date Reviewed: 11/02/2017 Reviewed by: Mikayla Todd Ma - Fully Assessed Primary Visit Diagnosis:NO SHOW Prescriptions as of 12/12/2017 Sig: POTASSIUM CHLORIDE ER 10 MEQ * Take 1 tablet by mouth once d* POLYETHYLENE GLYCOL 3350 17 G* Take 17 g by mouth once daily. INSULIN GLARGINE (U-100) 100 * Inject 30 Units subcutaneousl* BACLOFEN 10 MG TABLET Take 1 tablet by mouth twice * GABAPENTIN 300 MG CAPSULE Take 1 capsule by mouth twice* CLINDAMYCIN HCL 150 MG CAPSULE Take 1 capsule by mouth four * NABUMETONE 500 MG TABLET Take 1 tablet by mouth once d* BLOOD-GLUCOSE METER KIT Glucose Meter of Choice - Kit* NYSTATIN 100,000 UNIT/GRAM TO* Apply 1 application to affect* LINAGLIPTIN 5 MG TABLET Take 1 tablet by mouth once d* SPIRONOLACTONE 25 MG TABLET Take 1 tablet by mouth once d* RANITIDINE 150 MG TABLET Take 1 tablet by mouth twice * FUROSEMIDE 20 MG TABLET Take 1 tablet by mouth once d* DULOXETINE 60 MG CAPSULE,JODI* Take 1 capsule by mouth once * PRIMIDONE 50 MG TABLET TAKE ONE TABLET ONCE DAILY AT* PEN NEEDLE, DIABETIC 32 GAUGE* Use one needle for each dose.* HYDROCODONE 5 MG-ACETAMINOPHE* TAKE ONE TABLET TWICE DAILY BLOOD SUGAR DIAGNOSTIC STRIPS Test blood sugar(s) 2 times d* TRUETEST TEST STRIPS TEST twice a day LANCETS 30 GAUGE Test twice daily Dx: 250.02 TRAZODONE 50 MG TABLET Take 0.5 tablets by mouth padmini* ARIPIPRAZOLE 10 MG TABLET Take 1 tablet by mouth once d* NITROGLYCERIN 0.4 MG SUBLINGU* Dissolve 1 tablet under the t* ASPIRIN 81 MG TABLET,DELAYED * Take 1 tablet by mouth once d* Problem List As Of Date 12/12/2017 Noted Resolved Major depressive disorder, recurrent episode, u*INVALID FOR*11/24/2014 Priority: A More... Anxiety state [F41.1] INVALID FOR* BENIGN HYPERTENSION [I10] INVALID FOR* OSTEOARTHROS NOS-UNSPEC [M19.90] INVALID FOR*02/07/2007 ABNL GLANDULAR PAP SMEAR CERVIX [R87.619] INVALID FOR* HYPERPROLACTINEMIA [E22.9] INVALID FOR* IRREGULAR MENSTRUATION [N92.6] INVALID FOR* ESOPHAGEAL REFLUX [K21.9] INVALID FOR* ACUTE GASTRITIS W/O HEMORRHAGE [K29.00] INVALID FOR*02/07/2007 DIAPHRAGMATIC HERNIA [K44.9] INVALID FOR* Unspecified gastritis and gastroduodenitis with*INVALID FOR*07/24/2016 Localized osteoarthrosis not specified whether *INVALID FOR*07/24/2016 Priority: A More... Pain in joint, site unspecified [M25.50] INVALID FOR*07/24/2016 Routine general medical examination at a health*INVALID FOR*11/29/2011 Class: Chronic More... Routine gynecological examination [Z01.419] INVALID FOR*11/29/2011 Class: Chronic More... More... Morbid obesity [E66.01] INVALID FOR* Priority: Very Severe Hyperprolactinemia [E22.1] INVALID FOR*01/30/2012 Obstructive sleep apnea [G47.33] INVALID FOR* Priority: Severe More... Medication side effects [T88.7XXA] INVALID FOR*08/10/2017 SVT (supraventricular tachycardia) [I47.1] Priority: A Type II or unspecified type diabetes mellitus w*INVALID FOR*04/10/2012 Priority: Moderate More... Congestive heart failure [I50.9] INVALID FOR* Spondylolisthesis [M43.10] INVALID FOR* Lumbar facet arthropathy [M47.816] INVALID FOR* DDD (degenerative disc disease), lumbar [M51.36]INVALID FOR* Diabetes mellitus [E11.9] INVALID FOR*11/24/2014 DDD (degenerative disc disease), cervical [M50.*INVALID FOR* DM (diabetes mellitus) (HCC) [E11.9] INVALID FOR* PMB (postmenopausal bleeding) [N95.0] INVALID FOR* Dysthymia [F34.1] INVALID FOR* Major depressive disorder, recurrent episode, m*INVALID FOR* More... Pain disorder with psychological factors [F45.4*INVALID FOR* Diffuse myofascial pain syndrome [M79.18] INVALID FOR* Bilateral primary osteoarthritis of knee [M17.0]INVALID FOR* Obesity, Class III, BMI >= 40 [E66.01] INVALID FOR*10/20/2017 Liver disease [K76.9] INVALID FOR* More... Umbilical hernia without obstruction and withou*INVALID FOR* More... Encounter Status:Closed by DAMASO MUNIZ PHD on 12/12/17 UA COMPLETE Collected: 11/29/2017 Status: F Source: [facility] 9:40 AM [facility] [place] REPOSITORY TYPE CODE TESTS RESULT OUT OF REFERENCE UNITS RANGE LAB L600.62604 UA COLOR Normal Straw LAB L600.12404 CLEAR UA Normal APPEARANCE Clear LAB L600.16709 1.005-1.030 UA SPEC Normal GRAV 1.005 LAB L600.46900 UA PH Normal 5.0 LAB L600.97001 UA GLUCOSE Normal NEG LAB L600.55381 UA KETONE Normal NEGATIVE LAB L600.15239 UA Normal BILIRUBIN NEGATIVE LAB L600.39647 UA Normal UROBILINOGEN NEG LAB L600.31291 NEGATIVE UA PROTEIN Normal NEGATIVE LAB L600.27108 NEGATIVE UA BLOOD Normal SMALL LAB L600.67660 NEGATIVE UA NITRITE Normal NEGATIVE LAB L600.34998 NEGATIVE UA LK Normal ESTERASE 25 LAB L600.52239 0-5 WBC/HPF UA WBC High 12 LAB L600.04938 0-3 RBC/HPF UA RBC Normal 1 LAB L600.08733 0-5 EPI/HPF SQUAMOUS Normal EPIS 1 LAB L600.92247 NONE /HPF UA BACTERIA Normal 2+ LAB L600.02338 MUCUS Normal TRACE LAB L600.51329 /HPF URIC ACID Normal CRYST FEW LAB L600.25523 HPF WBC CLUMPS Normal OCC Performed By: #### L600.01413 #### [facility] [address] [place] [address] Observed: 11/29/2017 Status: F Source: [facility] URINE CULTURE 9:40 AM [facility] REPOSITORY URINE RESULT >100,000 COL/ML MIXED MAX-PLEASE REPEAT-POSSIBLE CONTAMIN Performed By: #### M100.53680 #### [facility] [address] [place] [address] UR MICROALB RDM Collected: 11/26/2017 Status: F Source: [facility] 11:15 AM [facility] REPOSITORY TYPE CODE TESTS RESULT OUT OF RANGE REFERENCE UNITS LAB L650.70075 22.00-328.00 MG/DL Low UR CREAT RDM 17.60 LAB L650.16493 0.0-19.0 UG/ML UR Normal MICROALB RDM LESS THAN 5.0 LAB L650.49808 0.00-30.00 UG/MGCR U Normal ALB/CRE RATIO TNP Performed By: #### L650.47128 #### [facility] [address] [place] [address] Observed: 11/26/2017 Status: F Source: [facility] URINE CULTURE 11:15 AM [facility] REPOSITORY URINE RESULT 30-40,000 COL/ML MIXED MAX-PLEASE REPEAT-POSSIBLE CONTAMIN Performed By: #### M100.09102 #### [facility] [address] [place] [address] PROGRESS Observed: 11/02/2017 Status: COMPLETED Source: [place] 1:38 PM [facility] [place] REPOSITORY HNO ID: [id number] Author: Vincent Herbert Service: (none) Author Type: Physician Type: Progress Notes Filed: 11/04/2017 2:08 PM Note Text: Patient presents with: Recheck: cellulitis HPI: Patient presents today for office visit for follow up. HOSPITAL/ER FOLLOW UP: Discharged three days ago.had mild chest pain. Was actually sent to er because of cellulitis. Hospital admitted for minimal chest pain. Had echo and stress test test. No further chest pain. Breathing has been ok. No fever or chills. No buttock pain. Redness is improved. Still mild swelling. Doing hibiclens scrubs etc. Discussed monitoring symptoms. Overall doing better. Remains on clindamycin. Reviewed hospital records. Denies current symptoms such as chest pain or shortness of breath. No edema. MEDICATIONS: Current Outpatient Prescriptions: cephALEXin (KEFLEX) 500 mg capsule Take 500 mg by mouth three times daily. X 5 days nabumetone (RELAFEN) 500 mg tablet Take 1 tablet by mouth once daily. TAKE WITH FOOD gabapentin (NEURONTIN) 300 mg capsule Take 1 capsule by mouth twice daily for 90 days. Blood-Glucose Meter monitoring kit Glucose Meter of Choice - Kit - Dx: Type 2 DM - Controlled E11.9 Use twice daily as directed insulin glargine (BASAGLAR KWIKPEN U-100 INSULIN) 100 unit/mL (3 mL) inpn Inject 30 Units subcutaneously daily at bedtime. nystatin (MYCOSTATIN) cream Apply 1 application to affected area twice daily. baclofen (LIORESAL) 10 mg tablet Take 1 tablet by mouth twice daily. linagliptin (TRADJENTA) 5 mg tab Take 1 tablet by mouth once daily. spironolactone (ALDACTONE) 25 mg tablet Take 1 tablet by mouth once daily. ranitidine (ZANTAC) 150 mg tablet Take 1 tablet by mouth twice daily. furosemide (LASIX) 20 mg tablet Take 1 tablet by mouth once daily. DULoxetine (CYMBALTA) 60 mg capsule Take 1 capsule by mouth once daily. primidone (MYSOLINE) 50 mg tablet TAKE ONE TABLET ONCE DAILY AT BEDTIME Insulin [place], Disposable, (BD ULTRA-FINE MADI PEN NEEDLE) 32 gauge x ndle Use one needle for each dose. 1/day. HYDROcodone-acetaminophen (NORCO) 5-325 mg per tablet TAKE ONE TABLET TWICE DAILY blood sugar diagnostic (BLOOD GLUCOSE TEST) test strip Test blood sugar(s) 2 times daily. Dx: Type 2 DM - Controlled E11.9 Insulin: No TRUETEST TEST STRIPS test strip TEST twice a day lancets (TRUEPLUS LANCETS) 30 gauge misc Test twice daily Dx: 250.02 traZODone (DESYREL) 50 mg tablet Take 0.5 tablets by mouth daily at bedtime. ARIPiprazole (ABILIFY) 10 mg tablet Take 1 tablet by mouth once daily. potassium chloride ER (K-DUR, KLOR-CON) 10 mEq tablet Take 1 tablet by mouth once daily. nitroglycerin sublingual (NITROQUICK) 0.4 mg SL tablet Dissolve 1 tablet under the tongue as needed. FOR CHEST PAIN. IF NO RELIEF CALL 911 polyethylene glycol 3350 (MIRALAX, GLYCOLAX) 17 gram/dose powder Take 17 g by mouth once daily. aspirin, enteric coated (ECOTRIN LOW STRENGTH) 81 mg EC tablet Take 1 tablet by mouth once daily. No current facility-administered medications for this visit. ALLERGIES: ALLERGIES Allergen Reactions - Lyrica [Pregabalin] Anaphylaxis Not sure if accurate. Can take gabapentin. Patient is unsure of reaction. - Accupril [Quinapril* Intolerance dizziness - Amlodipine Swelling Leg edema - Atenolol Swelling - Atorvastatin Intolerance Muscle cramps and weakness - Effexor [Venlafaxin* swelling high blood pressure - Januvia [Sitaglipti* GI Upset, Other: See Comments Patient states she couldn't eat - Metoprolol Swelling - Mobic [Meloxicam] GI Upset - Prozac [Fluoxetine * Intolerance tremor - Risperidone Mental Status Change - Seroquel [Quetiapin* hypertension,swelling - Vancomycin Itching, Other: See Comments red all over - Vioxx [Rofecoxib] GI Upset - Wellbutrin [Bupropi* Intolerance nightmares PAST MEDICAL HISTORY Diagnosis Date - Abnormal glandular Papanicolaou smear of cervix 05/30/05 ABNL GLANDULAR PAP SMEAR CERVIX - Acute gastritis without mention of hemorrhage - Anxiety state, unspecified - Arrhythmia - Chronic cholecystitis - Chronic obstructive pulmonary disease (COPD) (HCC) - Congestive heart failure (HCC) 10/03/2011 - Diabetes (HCC) - diabetes II 2010 - Diaphragmatic hernia without mention of obstruction or gangrene - Dysthymic disorder Depression (non-psychotic) - Esophageal reflux - Essential hypertension, benign - Generalized OA - Localized osteoarthrosis not specified whether primary or secondary, lower leg - Major depressive disorder, recurrent episode - Mucous polyp of cervix 07/19/05 - Other and unspecified anterior pituitary hyperfunction 10/13/05 elevated prolactin level-was normal in 2012 - PMH - PAST MEDICAL HISTORY OF sleep apnea - PMH - PAST MEDICAL HISTORY OF sleep apnea - SVT (supraventricular tachycardia) (HCC) - 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 PAST SURGICAL HISTORY Procedure Laterality Date - CERVICAL BIOPSY OR EXCISION 07/19/05 endocervical polyp - COLONOSCOP W/ OR W/O BRSH SPEC 01/09/2012 Colonoscopy repeat 10 years - COLPOSCOPY (VAGINOSCOPY) Colposcopy - EGD W/O BRSH SPECIMEN W/BX 01/16/07 - EGD W/O OR W/BRUSH/WASH 01/09/2012 EGD - HYSTEROSCOPY DX 12/17/2014 [facility] - LAP CHOLECYSTECT/CHOLANGIOGRAPHY 05/15/08 FAMILY HISTORY Problem Relation Age of Onset - Hypertension Mother - Heart Mother concha stroke - Diabetes Mother - Stroke Mother Massive- - Arthritis Mother Osteoarthritis - Hypertension Father - COPD Father - Hypertension Sister 2 - Hypertension Brother 3 - Heart Brother triple bypass at 48 - Heart Maternal Aunt - Heart Maternal Uncle - Diabetes Brother 3 Brother's with diabetes - Diabetes Sister - Arthritis Sister - Arthritis Brother - Arthritis Brother - Arthritis Brother Social History Marital status: Single Spouse name: Years of education: 9 Number of children: 0 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 REVIEW OF SYSTEMS GI: No nausea, vomiting, or diarrhea : Negative All other reviewed and negative other than HPI. INFLUENZA-requests Influenza Vaccine Documentation: ? Patient is identified by name and date of : Yes ? Patient is older than 6 months of age: Yes ? Patient denies a severe allergy to any vaccine component or to a previous dose of influenza vaccine: Yes FOR EGG ALLERGY CONCERNS, REFER TO PROVIDER. ? Denies allergy to gelatin, formaldehyde, thimerosol :Yes ? Patient is afebrile and not moderately or severely ill: Yes ? Does the patient have a history of Guillain ?Monrovia Syndrome (a severe paralytic illness): No ? Denies bone marrow transplant prior 6 months or solid organ transplant prior 3 months: Yes ? Denies a history of fainting after a prior injection or medical procedure? Yes If patient has fainted in the past, the CDC recommends sitting or lying down for 15 minutes after the vaccination. ? VIS sheet provided: Yes ? See Immunization Form in [facility] for details of immunizations administered today. If patient reports dizziness, vision changes or ringing in the ears post vaccination ? please have patient sit or lie down for 15 minutes. VITALS: BP 130/68 Pulse 92 Temp 37.1 ?C (98.8 ?F) Resp 20 LMP 12/11/2008 Last 4 Encounter Wt Readings: Date: Wt: 10/29/2017 179.6 kg (396 lb) 07/20/2017 182 kg (401 lb 3.2 oz) 06/29/2017 179.6 kg (396 lb) 06/25/2017 181 kg (399 lb) PHYSICAL EXAMINATION: General appearance: Well appearing, alert, in no acute distress, well-hydrated, well nourished. Skin: Skin color, texture, turgor normal, no suspicious rashes or lesions. No current redness or warmth of skin. Seems to be much better. Head: Normocephalic, no masses, lesions, tenderness or abnormalities Lungs: Lungs clear to auscultation. No wheezing, rhonchi, rales Heart: RRR without murmur, gallop, or rubs. No ectopy Abdomen: Normal abdominal exam, Abdomen soft, non-tender. Bowel sounds normal. No masses, organomegaly Extremities: no change in edema. PSYCH:Affect normal. Normal speech. Normal eye contact ASSESSMENT/PLAN: 1. Cellulitis of buttock - ICD9: 682.5, ICD10: L03.317 (primary diagnosis) - Finish antibiotic. Again continue scrubs. Continue to emphasize weight loss and changes in position. - CLINDAMYCIN HCL 150 MG CAPSULE 2. Low back pain, unspecified back pain laterality, unspecified chronicity, with sciatica presence unspecified - ICD9: 724.2, ICD10: M54.5 - continue meds. - BACLOFEN 10 MG TABLET 3. Type 2 diabetes mellitus with peripheral neuropathy (HCC) - ICD9: 250.60, 357.2, ICD10: E11.42 - hba1c was 6.8 - GABAPENTIN 300 MG CAPSULE 4. Obstructive sleep apnea - ICD9: 327.23, ICD10: G47.33 - stable. 5. Anxiety state - ICD9: 300.00, ICD10: F41.1 Stable. 6. Essential hypertension, benign - ICD9: 401.1, ICD10: I10 - good control - Continue current medication(s) - Goal of BP <140/90 7. Vaccination Administer flu shot. Vincent Herbert MD RTO in two months and prn. CNOV Observed: 11/02/2017 Status: COMPLETED Source: [place] 1:00 PM [facility] REPOSITORY Office Visit (FAMPWS) KATHLEEN KHAN V ([id number]) 1960 F Date Time Provider Department 11/02/17 1:00 PM [facility] HER[facility] During your visit today, we recorded the following information about you: Temperature Pulse Respiration Blood pressure 98.8 degrees 92/minute 20/minute 130/68 Vincent Herbert MD 11/04/2017 2:08 PM Signed Patient presents with: Recheck: cellulitis HPI: Patient presents today for office visit for follow up. HOSPITAL/ER FOLLOW UP: Discharged three days ago.had mild chest pain. Was actually sent to er because of cellulitis. Hospital admitted for minimal chest pain. Had echo and stress test test. No further chest pain. Breathing has been ok. No fever or chills. No buttock pain. Redness is improved. Still mild swelling. Doing hibiclens scrubs etc. Discussed monitoring symptoms. Overall doing better. Remains on clindamycin. Reviewed hospital records. Denies current symptoms such as chest pain or shortness of breath. No edema. MEDICATIONS: Current Outpatient Prescriptions: cephALEXin (KEFLEX) 500 mg capsule Take 500 mg by mouth three times daily. X 5 days nabumetone (RELAFEN) 500 mg tablet Take 1 tablet by mouth once daily. TAKE WITH FOOD gabapentin (NEURONTIN) 300 mg capsule Take 1 capsule by mouth twice daily for 90 days. Blood-Glucose Meter monitoring kit Glucose Meter of Choice - Kit - Dx: Type 2 DM - Controlled E11.9 Use twice daily as directed insulin glargine (BASAGLAR KWIKPEN U-100 INSULIN) 100 unit/mL (3 mL) inpn Inject 30 Units subcutaneously daily at bedtime. nystatin (MYCOSTATIN) cream Apply 1 application to affected area twice daily. baclofen (LIORESAL) 10 mg tablet Take 1 tablet by mouth twice daily. linagliptin (TRADJENTA) 5 mg tab Take 1 tablet by mouth once daily. spironolactone (ALDACTONE) 25 mg tablet Take 1 tablet by mouth once daily. ranitidine (ZANTAC) 150 mg tablet Take 1 tablet by mouth twice daily. furosemide (LASIX) 20 mg tablet Take 1 tablet by mouth once daily. DULoxetine (CYMBALTA) 60 mg capsule Take 1 capsule by mouth once daily. primidone (MYSOLINE) 50 mg tablet TAKE ONE TABLET ONCE DAILY AT BEDTIME Insulin [place]lin, Disposable, (BD ULTRA-FINE MADI PEN NEEDLE) 32 gauge x 5/32 ndle Use one needle for each dose. 1/day. HYDROcodone-acetaminophen (NORCO) 5-325 mg per tablet TAKE ONE TABLET TWICE DAILY blood sugar diagnostic (BLOOD GLUCOSE TEST) test strip Test blood sugar(s) 2 times daily. Dx: Type 2 DM - Controlled E11.9 Insulin: No TRUETEST TEST STRIPS test strip TEST twice a day lancets (TRUEPLUS LANCETS) 30 gauge misc Test twice daily Dx: 250.02 traZODone (DESYREL) 50 mg tablet Take 0.5 tablets by mouth daily at bedtime. ARIPiprazole (ABILIFY) 10 mg tablet Take 1 tablet by mouth once daily. potassium chloride ER (K-DUR, KLOR-CON) 10 mEq tablet Take 1 tablet by mouth once daily. nitroglycerin sublingual (NITROQUICK) 0.4 mg SL tablet Dissolve 1 tablet under the tongue as needed. FOR CHEST PAIN. IF NO RELIEF CALL 911 polyethylene glycol 3350 (MIRALAX, GLYCOLAX) 17 gram/dose powder Take 17 g by mouth once daily. aspirin, enteric coated (ECOTRIN LOW STRENGTH) 81 mg EC tablet Take 1 tablet by mouth once daily. No current facility-administered medications for this visit. ALLERGIES: ALLERGIES Allergen Reactions - Lyrica [Pregabalin] Anaphylaxis Not sure if accurate. Can take gabapentin. Patient is unsure of reaction. - Accupril [Quinapril* Intolerance dizziness - Amlodipine Swelling Leg edema - Atenolol Swelling - Atorvastatin Intolerance Muscle cramps and weakness - Effexor [Venlafaxin* swelling high blood pressure - Januvia [Sitaglipti* GI Upset, Other: See Comments Patient states she couldn't eat - Metoprolol Swelling - Mobic [Meloxicam] GI Upset - Prozac [Fluoxetine * Intolerance tremor - Risperidone Mental Status Change - Seroquel [Quetiapin* hypertension,swelling - Vancomycin Itching, Other: See Comments red all over - Vioxx [Rofecoxib] GI Upset - Wellbutrin [Bupropi* Intolerance nightmares PAST MEDICAL HISTORY Diagnosis Date - Abnormal glandular Papanicolaou smear of cervix 05/30/05 ABNL GLANDULAR PAP SMEAR CERVIX - Acute gastritis without mention of hemorrhage - Anxiety state, unspecified - Arrhythmia - Chronic cholecystitis - Chronic obstructive pulmonary disease (COPD) ([facility]) - Congestive heart failure (HCC) 10/03/2011 - Diabetes ([facility]) - diabetes II 2010 - Diaphragmatic hernia without mention of obstruction or gangrene - Dysthymic disorder Depression (non-psychotic) - Esophageal reflux - Essential hypertension, benign - Generalized OA - Localized osteoarthrosis not specified whether primary or secondary, lower leg - Major depressive disorder, recurrent episode - Mucous polyp of cervix 07/19/05 - Other and unspecified anterior pituitary hyperfunction 10/13/05 elevated prolactin level-was normal in 2011 - PMH - PAST MEDICAL HISTORY OF sleep apnea - PMH - PAST MEDICAL HISTORY OF sleep apnea - SVT (supraventricular tachycardia) (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 PAST SURGICAL HISTORY Procedure Laterality Date - CERVICAL BIOPSY OR EXCISION 07/19/05 endocervical polyp - COLONOSCOP W/ OR W/O [facility] SPEC 01/09/2012 Colonoscopy repeat 10 years - COLPOSCOPY (VAGINOSCOPY) Colposcopy - EGD W/O [facility] SPECIMEN W/BX 01/16/07 - EGD W/O OR W/BRUSH/WASH 01/09/2012 EGD - HYSTEROSCOPY DX 12/17/2014 [facility] - LAP CHOLECYSTECT/CHOLANGIOGRAPHY 05/15/08 FAMILY HISTORY Problem Relation Age of Onset - Hypertension Mother - Heart Mother concha stroke - Diabetes Mother - Stroke Mother Massive- - Arthritis Mother Osteoarthritis - Hypertension Father - COPD Father - Hypertension Sister 2 - Hypertension Brother 3 - Heart Brother triple bypass at 48 - Heart Maternal Aunt - Heart Maternal Uncle - Diabetes Brother 3 Brother's with diabetes - Diabetes Sister - Arthritis Sister - Arthritis Brother - Arthritis Brother - Arthritis Brother Social History Marital status: Single Spouse name: Years of education: 9 Number of children: 0 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 REVIEW OF SYSTEMS GI: No nausea, vomiting, or diarrhea : Negative All other reviewed and negative other than HPI. INFLUENZA-requests Influenza Vaccine Documentation: ? Patient is identified by name and date of : Yes ? Patient is older than 6 months of age: Yes ? Patient denies a severe allergy to any vaccine component or to a previous dose of influenza vaccine: Yes FOR EGG ALLERGY CONCERNS, REFER TO PROVIDER. ? Denies allergy to gelatin, formaldehyde, thimerosol :Yes ? Patient is afebrile and not moderately or severely ill: Yes ? Does the patient have a history of Guillain ?Monrovia Syndrome (a severe paralytic illness): No ? Denies bone marrow transplant prior 6 months or solid organ transplant prior 3 months: Yes ? Denies a history of fainting after a prior injection or medical procedure? Yes If patient has fainted in the past, the CDC recommends sitting or lying down for 15 minutes after the vaccination. ? VIS sheet provided: Yes ? See Immunization Form in [employer] for details of immunizations administered today. If patient reports dizziness, vision changes or ringing in the ears post vaccination ? please have patient sit or lie down for 15 minutes. VITALS: BP 130/68 Pulse 92 Temp 37.1 ?C (98.8 ?F) Resp 20 LMP 12/11/2008 Last 4 Encounter Wt Readings: Date: Wt: 10/29/2017 179.6 kg (396 lb) 07/20/2017 182 kg (401 lb 3.2 oz) 06/29/2017 179.6 kg (396 lb) 06/25/2017 181 kg (399 lb) PHYSICAL EXAMINATION: General appearance: Well appearing, alert, in no acute distress, well-hydrated, well nourished. Skin: Skin color, texture, turgor normal, no suspicious rashes or lesions. No current redness or warmth of skin. Seems to be much better. Head: Normocephalic, no masses, lesions, tenderness or abnormalities Lungs: Lungs clear to auscultation. No wheezing, rhonchi, rales Heart: RRR without murmur, gallop, or rubs. No ectopy Abdomen: Normal abdominal exam, Abdomen soft, non-tender. Bowel sounds normal. No masses, organomegaly Extremities: no change in edema. PSYCH:Affect normal. Normal speech. Normal eye contact ASSESSMENT/PLAN: 1. Cellulitis of buttock - ICD9: 682.5, ICD10: L03.317 (primary diagnosis) - Finish antibiotic. Again continue scrubs. Continue to emphasize weight loss and changes in position. - CLINDAMYCIN HCL 150 MG CAPSULE 2. Low back pain, unspecified back pain laterality, unspecified chronicity, with sciatica presence unspecified - ICD9: 724.2, ICD10: M54.5 - continue meds. - BACLOFEN 10 MG TABLET 3. Type 2 diabetes mellitus with peripheral neuropathy (HCC) - ICD9: 250.60, 357.2, ICD10: E11.42 - hba1c was 6.8 - GABAPENTIN 300 MG CAPSULE 4. Obstructive sleep apnea - ICD9: 327.23, ICD10: G47.33 - stable. 5. Anxiety state - ICD9: 300.00, ICD10: F41.1 Stable. 6. Essential hypertension, benign - ICD9: 401.1, ICD10: I10 - good control - Continue current medication(s) - Goal of BP <140/90 7. Vaccination Administer flu shot. Vincent Herbert MD RTO in two months and prn. Referring Provider: VINCENT HERBERT [[id number]] Allergies As of Date: 11/02/2017 Noted Allergy Reaction LYRICA (PREGABALIN) 08/05/2012 10 - Anaphylaxis Comments: Not sure if accurate. Can take gabapentin. Patient is unsure of reaction. ACCUPRIL (QUINAPRIL HCL) 08/12/2005 5 - Intolerance Comments: dizziness AMLODIPINE 04/24/2008 7 - Swelling Comments: Leg edema ATENOLOL 09/29/2010 7 - Swelling ATORVASTATIN 11/01/2017 5 - Intolerance Comments: Muscle cramps and weakness EFFEXOR (VENLAFAXINE HCL) 09/22/2005 Comments: swelling high blood pressure JANUVIA (SITAGLIPTIN) 09/21/2011 8 - GI Upset 14 - Other: See Comments Comments: Patient states she couldn't eat METOPROLOL 09/21/2009 7 - Swelling MOBIC (MELOXICAM) 08/12/2005 8 - GI Upset PROZAC (FLUOXETINE HCL) 08/12/2005 5 - Intolerance Comments: tremor RISPERIDONE 12/22/2009 1 - Mental Status Change SEROQUEL (QUETIAPINE FUMARATE) 10/05/2006 Comments: hypertension,swelling VANCOMYCIN 08/10/2017 9 - Itching 14 - Other: See Comments Comments: red all over VIOXX (ROFECOXIB) 08/12/2005 8 - GI Upset WELLBUTRIN (BUPROPION HCL) 08/12/2005 5 - Intolerance Comments: nightmares Date Reviewed: 11/02/2017 Reviewed by: Mikayla Todd Ma - Fully Assessed Reason for Visit: Recheck [92] Cmt: cellulitis Imm/Inj [58] Cmt: Flu Vaccine Reason For Visit History Recorded Primary Visit Diagnosis:Cellulitis of buttock [L03.317] Other Visit Diagnoses:Low back pain, unspecified back pain laterality, unspecified chronicity, with sciatica presence unspecified [M54.5] Type 2 diabetes mellitus with peripheral neuropathy (HCC) [E11.42] Obstructive sleep apnea [G47.33] Anxiety state [F41.1] Essential hypertension, benign [I10] Need for vaccination [Z23] Type 2 diabetes mellitus without complication, unspecified whether 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 terminal 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 insulin use (HCC) [E11.9] Order(s):baclofen (LIORESAL) 10 mg tabletTake 1 tablet by mouth twice daily.Disp: 60 tabletRfl: 1 gabapentin (NEURONTIN) 300 mg capsuleTake 1 capsule by mouth twice daily for 90 days.Disp: 60 capsuleRfl: 2 clindamycin (CLEOCIN) 150 mg capsuleTake 1 capsule by mouth four times daily.Disp: 40 capsuleRfl: 0 INFLUENZA VACCINE QUADRIVALENT AGE 3 YRS PLUS + IM [[id number]] Order #: [id number] Prescriptions as of 11/02/2017 Sig: NABUMETONE 500 MG TABLET Take 1 tablet by mouth once d* BLOOD-GLUCOSE METER KIT Glucose Meter of Choice - Kit* INSULIN GLARGINE (U-100) 100 * Inject 30 Units subcutaneousl* NYSTATIN 100,000 UNIT/GRAM TO* Apply 1 application to affect* LINAGLIPTIN 5 MG TABLET Take 1 tablet by mouth once d* SPIRONOLACTONE 25 MG TABLET Take 1 tablet by mouth once d* RANITIDINE 150 MG TABLET Take 1 tablet by mouth twice * FUROSEMIDE 20 MG TABLET Take 1 tablet by mouth once d* DULOXETINE 60 MG CAPSULE,JODI* Take 1 capsule by mouth once * PRIMIDONE 50 MG TABLET TAKE ONE TABLET ONCE DAILY AT* PEN NEEDLE, DIABETIC 32 GAUGE* Use one needle for each dose.* HYDROCODONE 5 MG-ACETAMINOPHE* TAKE ONE TABLET TWICE DAILY BLOOD SUGAR DIAGNOSTIC STRIPS Test blood sugar(s) 2 times d* TRUETEST TEST STRIPS TEST twice a day LANCETS 30 GAUGE Test twice daily Dx: 250.02 TRAZODONE 50 MG TABLET Take 0.5 tablets by mouth padmini* ARIPIPRAZOLE 10 MG TABLET Take 1 tablet by mouth once d* POTASSIUM CHLORIDE ER 10 MEQ * Take 1 tablet by mouth once d* NITROGLYCERIN 0.4 MG SUBLINGU* Dissolve 1 tablet under the t* POLYETHYLENE GLYCOL 3350 17 G* Take 17 g by mouth once daily. ASPIRIN 81 MG TABLET,DELAYED * Take 1 tablet by mouth once d* BACLOFEN 10 MG TABLET Take 1 tablet by mouth twice * GABAPENTIN 300 MG CAPSULE Take 1 capsule by mouth twice* CLINDAMYCIN HCL 150 MG CAPSULE Take 1 capsule by mouth four * Problem List As Of Date 11/02/2017 Noted Resolved Major depressive disorder, recurrent episode, u*INVALID FOR*11/24/2014 Priority: A More... Anxiety state [F41.1] INVALID FOR* BENIGN HYPERTENSION [I10] INVALID FOR* OSTEOARTHROS NOS-UNSPEC [M19.90] INVALID FOR*02/07/2007 ABNL GLANDULAR PAP SMEAR CERVIX [R87.619] INVALID FOR* HYPERPROLACTINEMIA [E22.9] INVALID FOR* IRREGULAR MENSTRUATION [N92.6] INVALID FOR* ESOPHAGEAL REFLUX [K21.9] INVALID FOR* ACUTE GASTRITIS W/O HEMORRHAGE [K29.00] INVALID FOR*02/07/2007 DIAPHRAGMATIC HERNIA [K44.9] INVALID FOR* Unspecified gastritis and gastroduodenitis with*INVALID FOR*07/24/2016 Localized osteoarthrosis not specified whether *INVALID FOR*07/24/2016 Priority: A More... Pain in joint, site unspecified [M25.50] INVALID FOR*07/24/2016 Routine general medical examination at a health*INVALID FOR*11/29/2011 Class: Chronic More... Routine gynecological examination [Z01.419] INVALID FOR*11/29/2011 Class: Chronic More... More... Morbid obesity [E66.01] INVALID FOR* Priority: Very Severe Hyperprolactinemia [E22.1] INVALID FOR*01/30/2012 Obstructive sleep apnea [G47.33] INVALID FOR* Priority: Severe More... Medication side effects [T88.7XXA] INVALID FOR*08/10/2017 SVT (supraventricular tachycardia) [I47.1] Priority: A Type II or unspecified type diabetes mellitus w*INVALID FOR*04/10/2012 Priority: Moderate More... Congestive heart failure [I50.9] INVALID FOR* Spondylolisthesis [M43.10] INVALID FOR* Lumbar facet arthropathy [M47.816] INVALID FOR* DDD (degenerative disc disease), lumbar [M51.36]INVALID FOR* Diabetes mellitus [E11.9] INVALID FOR*11/24/2014 DDD (degenerative disc disease), cervical [M50.*INVALID FOR* DM (diabetes mellitus) (HCC) [E11.9] INVALID FOR* PMB (postmenopausal bleeding) [N95.0] INVALID FOR* Dysthymia [F34.1] INVALID FOR* Major depressive disorder, recurrent episode, m*INVALID FOR* More... Pain disorder with psychological factors [F45.4*INVALID FOR* Diffuse myofascial pain syndrome [M79.1] INVALID FOR* Bilateral primary osteoarthritis of knee [M17.0]INVALID FOR* Obesity, Class III, BMI >= 40 [E66.01] INVALID FOR*10/20/2017 Liver disease [K76.9] INVALID FOR* More... Umbilical hernia without obstruction and withou*INVALID FOR* More... Prescriptions ordered this encounter Disp Refills Start End BACLOFEN 10 MG TABLET 60 t* 1 11/02/2017 Route: ORAL Sig: Take 1 tablet by mouth twice daily. GABAPENTIN 300 MG CAPSULE 60 c* 2 11/02/2017 01/31/2018 Route: ORAL Sig: Take 1 capsule by mouth twice daily for 90 days. CLINDAMYCIN HCL 150 MG CAPSULE 40 c* 0 11/02/2017 Class: Med Update Route: ORAL Sig: Take 1 capsule by mouth four times daily. Medications Discontinued During This Encounter cephALEXin (KEFLEX) 500 mg capsule 11/02/2017 Class: Historical Med Route: ORAL Sig: Take 500 mg by mouth three times daily. X 5 days Disc: Reason for discontinue is not on file. baclofen (LIORESAL) 10 mg tablet 60 t* 1 08/10/2017 11/02/2017 Route: ORAL Sig: Take 1 tablet by mouth twice daily. Disc: Reason for discontinue is not on file. gabapentin (NEURONTIN) 300 mg capsule 60 c* 2 10/01/2017 11/02/2017 Route: ORAL Sig: Take 1 capsule by mouth twice daily for 90 days. Disc: Reason for discontinue is not on file. Disposition: Return in about 2 months (around 01/02/2018). Follow-up and Disposition History Recorded Encounter Status:Closed by VINCENT HERBERT MD on 11/04/17 12 LEAD ELECTROCARDIOGRAM Observed: 10/31/2017 Status: F Source: [place] 1:57 PM [facility] REPOSITORY [facility] Cardiovascular Services [address] [place] [id number] 12 Lead EKG 10/29/17 1641 MR#: [id number] Acct: [id number] Name: KATHLEEN KHAN V Rep #: [id number] : 1960 57 From: Akhil Dodson MD Attending Dr: Rosa Isela Cordova MD Status: DIS ANU Ordering Dr: Gudelia Barron Date: 10/29/17 Location: [facility] Sex: F C Admitted: 10/29/17 Test Reason : CP REPEAT Blood Pressure : / mmHG Vent. Rate : 070 BPM Atrial Rate : 070 BPM P-R Int : 140 ms QRS Dur : 082 ms QT Int : 416 ms P-R-T Axes : 049 018 030 degrees QTc Int : 449 ms Normal sinus rhythm Normal ECG When compared with ECG of 21-OCT-2017 04:42, No significant change was found Confirmed by AKHIL DODSON MD ([id number]), OK Ferguson ([id number]) on 10/31/2017 1:57:11 PM Referred By: KAMERON Confirmed By:AKHIL DODSON MD 10/31/17 1357 Date Akhil Dodson MD CC: Gudelia Barron; Rosa Isela Cordova MD; Vincent Herbert MD Signed 12 LEAD ELECTROCARDIOGRAM Observed: 10/31/2017 Status: F Source: [place] 1:55 PM [facility] REPOSITORY [facility] Cardiovascular Services [address] [place] [address] [place] [address] 12 Lead EKG 10/30/17 0541 MR#: [id number] Acct: [id number] Name: KATHLEEN KHAN V Rep #: [id number] : 1960 57 From: Akhil Dodson MD Attending Dr: Rosa Isela Cordova MD Status: DIS ANU Ordering Dr: Gudelia Barron Date: 10/30/17 Location: [facility] Sex: F C Admitted: 10/29/17 Test Reason : AM EKG Blood Pressure : / mmHG Vent. Rate : 066 BPM Atrial Rate : 066 BPM P-R Int : 144 ms QRS Dur : 086 ms QT Int : 414 ms P-R-T Axes : 044 015 025 degrees QTc Int : 434 ms Normal sinus rhythm Normal ECG When compared with ECG of 29-OCT-2017 16:41, MANUAL COMPARISON REQUIRED, DATA IS UNCONFIRMED Confirmed by AKHIL DODSON MD ([id number]), editor index KO ROMERO ([id number]) on 10/31/2017 1:54:38 PM Referred By: KAMERON Confirmed By:AKHIL DODSON MD 10/31/17 5779 Date Akhil Dodson MD CC: Gudelia Barron; Rosa Isela Cordova MD; Vincent Herbert MD Signed 12 LEAD ELECTROCARDIOGRAM Observed: 10/31/2017 Status: F Source: [place] 1:40 PM [facility] REPOSITORY [facility] Cardiovascular Services [address] [place] [address] 12 Lead EKG 10/29/17 1330 MR#: [id number] Acct: [id number] Name: KATHLEEN KHAN V Rep #: [id number] : 1960 57 From: Akhil Dodson MD Attending Dr: Rosa Isela Cordova MD Status: DIS ANU Ordering Dr: Fermin Glass MD Date: 10/29/17 Location: [facility] Sex: F C Admitted: 10/29/17 Test Reason : CP Blood Pressure : / mmHG Vent. Rate : 069 BPM Atrial Rate : 069 BPM P-R Int : 136 ms QRS Dur : 084 ms QT Int : 410 ms P-R-T Axes : 029 008 015 degrees QTc Int : 439 ms Normal sinus rhythm Minimal voltage criteria for LVH, may be normal variant Borderline ECG Confirmed by AKHIL DODSON MD ([id number]), editor index KO ROMERO ([id number]) on 10/31/2017 1:40:14 PM Referred By: BRENT Confirmed By:AKHIL DODSON MD 10/31/17 1340 Date Akhil Dodson MD CC: Stephane Glass MD; Rosa Isela Cordova MD; Vincent Herbert MD Signed ECHO, COMPLETE W/ Observed: 10/30/2017 Status: F Source: [place] CONTRAST 4:29 PM [facility] REPOSITORY [facility] Cardiovascular Services [address] [place] [address] Echo Complete W/ Contrast 10/30/17 1030 MR#: [id number] Acct: [id number] Name: KATHLEEN KHAN V Rep #: [id number] : 1960 57 From: Akhil Dodson MD Attending Dr: Rosa Isela Cordova MD Status: ADM ANU Ordering Dr: Gudelia Barron Date: 10/29/17 Location: [facility] Sex: F C Admitted: 10/29/17 Version 2 Reason For Study: CHF Procedure This was a 2D Doppler, Color Flow transthoracic echocardiogram. The study was technically difficult. Exam performed in department. Left Ventricle Normal LV size. Left ventricular systolic function is normal. The estimated ejection fraction is 55 %. Normal diastology for age. No regional wall motion abnormalities noted. Right Ventricle Normal RV size. Normal systolic function. Atria The left atrium is mildly enlarged. Normal right atrium. Mitral Valve Normal mitral valve. Tricuspid Valve Normal tricuspid valve. Mild (1+) tricuspid valve insufficiency. Pulmonary artery systolic pressure is 39 mmHg. Aortic Valve The aortic valve is not well visualized. Peak aortic valve gradient 22 mmHg. Pulmonic Valve The pulmonic valve is not well visualized. Great Vessels Normal aortic root. The pulmonary artery is normal size. Normal inferior vena cava. Pericardium/Pleural No pericardial effusion. Medication Diluted definity 4ml given slow IV push to enhance endocardial definition. MMode/2D Measurements AND Calculations LVIDd: 5.1 cm IVSd: 1.3 cm Ao root diam: 2.7 cm LVIDs: 3.3 cm LVPWd: 1.2 cm LA dimension: 3.9 cm RVDd: 4.3 cm FS: 35.0 % LAV(MOD-bp): 65.1 ml LVAd ap4: 33.1 cm2 SV(MOD-sp4): 78.7 ml LAV(MOD-bp) Indexed: 25.9 ml/m2 EDV(MOD-sp4): 121.5 ml LAV(MOD-sp2): 57.4 ml EDV(sp4-el): 125.7 ml LAV(MOD-sp4): 61.6 ml LVAs ap4: 17.3 cm2 ESV(MOD-sp4): 42.8 ml ESV(sp4-el): 44.6 ml EF(MOD-sp4): 64.8 % EF(sp4-el): 64.5 % SV(sp4-el): 81.1 ml LA A4 area: 22.3 cm2 RA A4 area: 17.2 cm2 Time Measurements MV dec time: 0.20 sec Doppler Measurements AND Calculations MV E max alexey: 123.8 cm/sec Lat Peak E' Alexey: 13.4 cm/sec Med Peak E' Alexey: 11.0 cm/sec MV A max alexey: 101.8 cm/sec E/E' lat: 9.3 E/E' med: 11.3 MV E/A: 1.2 Ao V2 max: 235.0 cm/sec LV V1 max: 157.0 cm/sec PA V2 max: 205.8 cm/sec Ao max P.1 mmHg LV V1 max P.9 mmHg TR max alexey: 301.7 cm/sec TR max P.4 mmHg Interpretation Summary Normal LV size. Left ventricular systolic function is normal. The estimated ejection fraction is 55 %. Normal diastology for age. Pulmonary artery systolic pressure is 39 mmHg. The study was technically difficult. Contrast injection was performed. Compared to prior study, there is no significant change. Ordering Physician: Gudelia Barron Referring Physician: PIEDAD CERNA Performed By: Eden Morris RDCS 10/30/17 1628 Date Akhil Dodson MD CC: Gudelia Barron; Rosa Isela Cordova MD; Vincent Herbert MD Date Dictated: 10/30/17 1030 Date Transcribed: 10/30/17 1627 Plate Grainer: Signed DISCHARGE SUMMARY Observed: 10/30/2017 Status: F Source: [place] 2:57 PM [facility] REPOSITORY [facility] Medical Records Department [address] [place] [address] Discharge Summary 10/30/17 1452 MR#: [id number] Acct: [id number] Name: KATHLEEN KHAN V Rep #: [id number] : 1960 57 From: Rosa Isela Cordova MD PCP: Vincent Herbert MD Status: ADM ANU Y Location: [place] [address] Discharge Date and Diagnosis - Problem List Patient Problems: Active and Suspected Problems Chest pain (Acute) Exertional dyspnea (Acute) Date of Admission: 10/29/17 Date of Discharge: 10/30/17 - Primary Discharge Diagnosis Active and Suspected Problems Chest pain (Acute) Exertional dyspnea (Acute) - Secondary Discharge Diagnosis Chronic Problems Anxiety and depression (Chronic) Heart failure (Chronic) Chronic back pain (Chronic) History of pneumonia (Chronic) JEREMÍAS (obstructive sleep apnea) (Chronic) Lumbosacral neuritis (Chronic) Esophageal reflux (Chronic) Morbid obesity (Chronic) Hypertension (Chronic) Hospital Course and Treatment Imaging Results: 10/30/17 05:55 Nuclear Stress Test - Chemical [NM] AM (NON MEDS) Laboratory Tests WBC 7.0 WBC RBC Hgb Hct MCV WBC 5.7 RBC 4.59 Hgb 12.8 Hct 39.4 MCV 85.8 MCH 27.9 MCHC 32.5 WBC RBC Hgb Hct MCV MCH MCHC RDW RDW Differential Plt Count WBC RBC Hgb Hct MCV MCH MCHC RDW RDW Differential Plt Count MPV Immature Gran % (Auto) Neut % (Auto) Lymph % (Auto) Diagnostic Data Chest X-Ray 10/29/17 14:06 IMPRESSION: No acute abnormality is seen. Electronically Signed: Horace Maldonado MD at 14:50 EDT Tel [phone], Service support , Operations: None Procedures: Stress test Summary of Care Provided: The patient is a 57 year old F with an extensive past medical history of chronic back and lower extremity pain, diabetes mellitus, anxiety and depression, JEREMÍAS, GERD, hypertension and heart failure with unknown ejection fraction. She was admitted via the ED on 10/29/2017 with complaint of chest pain alvarez-white sided recurrent erythema and chills. Initial troponin was negative and a repeat was also negative. Chest x-ray was also negative and EKG showed no acute ST changes. She was given aspirin in the ED and admitted to be managed for atypical chest pain. She had a stress test on 10/30/2017 which showed gated ejection fraction to be about 61% with normal wall thickening and probably normal myocardial perfusion stress test with no obvious ischemia noted. Patient remained stable and was discharged home on 10/30/2017. She was given a prescription for sublingual nitroglycerin as needed for chest pain. She is follow-up with her primary care doctor in 1 week. Patient seen and examined prior to discharge. She had no complaints and chest pain had resolved and actually had not recurred since she was admitted. She denied any fever or chills, any shortness of breath, any palpitations, any abdominal pain, any diarrhea vomiting. 12 point review of systems was otherwise negative. Labs and vitals are reviewed. On examination: Vital Signs Height 5 ft 1 in Weight: 386 lb 0.47 oz Weight in Pounds 386.0 lbs Pulse Ox 97 []Physical Examination: General: awake, alert, oriented x 3 and cooperative, Skin: normal color, turgor, no icterus, cyanosis and no erythema noted in buttock or RLE area. HEENT: AT/NC, EOMI, PERRLA, MMM, no carotid bruits or JVD noted; Lungs: Breath sounds bilateral bases, moderate effort, no rales, ronchi or wheezing. Heart: Regular rate and rhythm; no gallop, rub audible. Abdomen: soft, mildly obese, not tender to palpation, no organomegaly. abdomen very obese Extremities: no cyanosis, clubbing, no marked lower extremity edema, nonpitting. Neurological: patient awake, alert, oriented x 3; cognitive function intact; pupils equally reactive to light and accomodation; cranial nerves II-XII grossly normal, moving all 4 extremities, no focal deficits, Psychiatric: affect appears normal, no acute evidence of depressive or anxiety feelings. Plan as stated above. Discharge Diet: 2000 mg Sodium Diet Discharge Activity: Return to Normal Activity Weight Bearing Status: Weight bearing as tolerated Call your doctor if you observe: Chest pain, Increased palpitations (irregular heartbeat) Home Medications: Medications to take at Discharge Aspirin [Adult Low Dose Aspirin EC] 81 mg PO DAILY 12/02/14 Duloxetine HCl 60 mg PO DAILY 12/02/14 Linagliptin [Tradjenta] 5 mg PO DAILY 12/02/14 Potassium Chloride [K-Dur] 10 meq PO DAILY 12/02/14 Ranitidine [Zantac] 150 mg PO BID 12/02/14 Spironolactone [Aldactone] 25 mg PO DAILY 12/02/14 Baclofen 10 mg PO BID 08/01/17 Gabapentin [Neurontin] 300 mg PO BID 08/01/17 Primidone [Mysoline] 50 mg PO QHS 08/01/17 traZODone [Desyrel] 50 mg PO QHS 08/01/17 Hydrocodone/Acetaminophen [[place] 5-325 Tablet] 1 each PO BID PRN PRN 09/09/17 Nitroglycerin [Nitrostat] 0.4 mg SL PRN PRN 09/09/17 Aripiprazole [Abilify] 10 mg PO QHS 10/21/17 Atorvastatin Calcium [Lipitor] 20 mg PO QHS 10/29/17 Furosemide [Lasix] 20 mg PO DAILY 10/29/17 Insulin Glargine,Hum.rec.anlog [Basaglar Kwikpen U-100] 30 unit SQ QHS 10/29/17 Nabumetone [Relafen] 500 mg PO BID 10/29/17 Nitroglycerin [Nitrostat] 0.4 mg SUBLINGUAL Q5M PRN #30 tab 10/30/17 Following Prescrptions Were Given to Patient: Nitroglycerin [Nitrostat] 0.4 mg SUBLINGUAL Q5M PRN #30 tab PRN Reason: Chest Pain Primary Care Physician: Vincent Herbert MD [Primary Care Provider] - Please follow up with your Primary Care Physician in: one week Disposition: Home Minutes spent on discharge:: 35 Patient Condition:: Stable Medical Necessity - Tobacco Use Smoking Status: Former smoker Tobacco Use: Non-smoker Meaningful Use Info Meaningful Use Diagnoses (Choose all that apply): None applicable Code Visit Inpatient E AND M: 23446 Disch Hosp 10/30/17 1457 <Electronically signed by Rosa Isela Cordova MD> Date Rosa Isela Cordova MD Cosigner Signature (if applicable): Date CC: Rosa Isela Cordova MD; Vincent Herbert MD Signed DISCHARGE INSTRUCTION Observed: 10/30/2017 Status: F Source: [place] 2:52 PM [facility] REPOSITORY [facility] Medical Records Department [address] [facility] [place] [address] Instructions for Home/Discharge Instructions 10/30/17 1450 MR#: [id number] Acct: [id number] Name: KATHLEEN KHAN V Rep #: [id number] : 1960 57 From: Rosa Isela Cordova MD PCP: Vincent Herbert MD Status: ADM ANU - Discharge Diagnoses Current Active Problems: Current Active and Chronic Problems Chest pain (Acute) Exertional dyspnea (Acute) You will use the following diet at home:: Cardiac Your food should be the consistency of: Regular Discharge Activity: Return to Normal Activity Call your doctor if you observe: Chest pain, Increased palpitations (irregular heartbeat) Allergies/Adverse Reactions: Allergies vancomycin Allergy (Verified 10/29/17 12:44) Rash amlodipine Adverse Reaction (Verified 10/29/17 12:44) Unknown atenolol Adverse Reaction (Verified 10/29/17 12:44) Unknown bupropion HCl [From Wellbutrin] Adverse Reaction (Verified 10/29/17 12:44) Unknown fluoxetine HCl [From Prozac] Adverse Reaction (Verified 10/29/17 12:44) Unknown meloxicam [From Mobic] Adverse Reaction (Verified 10/29/17 12:44) Unknown metoprolol Adverse Reaction (Verified 10/29/17 12:44) Unknown pregabalin [From Lyrica] Adverse Reaction (Verified 10/29/17 12:44) Unknown quetiapine fumarate [From Seroquel] Adverse Reaction (Verified 10/29/17 12:44) Unknown quinapril HCl [From Accupril] Adverse Reaction (Verified 10/29/17 12:44) Unknown risperidone Adverse Reaction (Verified 10/29/17 12:44) Unknown rofecoxib [From Vioxx] Adverse Reaction (Verified 10/29/17 12:44) Unknown sitagliptin phosphate [From Januvia] Adverse Reaction (Verified 10/29/17 12:44) Unknown venlafaxine HCl [From Effexor] Adverse Reaction (Verified 10/29/17 12:44) Unknown Medications to take at Discharge Aspirin [Adult Low Dose Aspirin EC] 81 mg PO DAILY 12/02/14 Duloxetine HCl 60 mg PO DAILY 12/02/14 Linagliptin [Tradjenta] 5 mg PO DAILY 12/02/14 Potassium Chloride [K-Dur] 10 meq PO DAILY 12/02/14 Ranitidine [Zantac] 150 mg PO BID 12/02/14 Spironolactone [Aldactone] 25 mg PO DAILY 12/02/14 Baclofen 10 mg PO BID 08/01/17 Gabapentin [Neurontin] 300 mg PO BID 08/01/17 Primidone [Mysoline] 50 mg PO QHS 08/01/17 traZODone [Desyrel] 50 mg PO QHS 08/01/17 Hydrocodone/Acetaminophen [[place] 5-325 Tablet] 1 each PO BID PRN PRN 09/09/17 Nitroglycerin [Nitrostat] 0.4 mg SL PRN PRN 09/09/17 Aripiprazole [Abilify] 10 mg PO QHS 10/21/17 Atorvastatin Calcium [Lipitor] 20 mg PO QHS 10/29/17 Furosemide [Lasix] 20 mg PO DAILY 10/29/17 Insulin Glargine,Hum.rec.anlog [Basaglar Kwikpen U-100] 30 unit SQ QHS 10/29/17 Nabumetone [Relafen] 500 mg PO BID 10/29/17 Nitroglycerin [Nitrostat] 0.4 mg SUBLINGUAL Q5M PRN #30 tab 10/30/17 The following prescriptions were given: Nitroglycerin [Nitrostat] 0.4 mg SUBLINGUAL Q5M PRN #30 tab PRN Reason: Chest Pain Primary Care Physician: Vincent Herbert MD [Primary Care Provider] - Please follow up with your Primary Care Physician in: one week Test Results: Test results from this visit will be discussed in further detail at your follow-up appointment, if applicable. Proposed Discharge Date: 10/30/17 10/30/171451 <Electronically signed by Rosa Isela Cordova MD> Date Rosa Isela Cordova MD CC: Vincent Herbert MD STRESS REPORT Observed: 10/30/2017 Status: F Source: [place] 2:42 PM [facility] REPOSITORY [facility] Cardiovascular Services [address] [place] [address] MR#: [id number] Acct: [id number] Name: KATHLEEN KHAN V Rep #: [id number] : 1960 57 From: Akhil Dodson MD Primary Care: Vincent Herbert MD Status: ADM ANU Ordering Dr: Sex: F C Stress Test Report Pharmacologic myocardial perfusion stress test. 57-year-old lady with a history of hypertension and chest pain. Stress protocol: Resting EKG demonstrates normal sinus rhythm with a rate of 64 bpm resting blood pressure is 112/78 mmHg. 0.4 mg of regadenoson was infused per usual protocol followed by rapid intravenous saline flush injection continuous EKG monitoring was performed. The patient maintained sinus rhythm throughout the recording. At rest there were no ST or T-wave changes noted suggest abnormal flow reserve. The maximum heart rate attained was 92 bpm which was 56% of maximum predicted heart rate. The maximum workload was 1 metabolic equivalent. Myocardial perfusion protocol. 15.1 mCi of technetium 99m sestamibi was injected at rest. 0.4 mg regadenoson was infused per usual protocol peak infusion 44.8 mCi of technetium 99m sestamibi was injected stress images were obtained stress and rest images were reconstructed and compared in the short axis vertical long horizontal long axis. Gated images were also obtained next Perfusion SPECT analysis: Review of the stress images demonstrate normal uptake of tracer noted in the septum anterior wall and lateral wall. The inferior wall demonstrates reduction of perfusion on the stress and resting images to a similar extent. The above is highly suggestive of diaphragmatic and GI attenuation artifact. No obvious areas of ischemia are noted. Gated SPECT analysis: The gated ejection fraction is noted to be 61% with normal wall thickening. Conclusion: Probably normal pharmacologic myocardial perfusion stress test. No obvious ischemia noted. 10/30/17 1442 <Electronically signed by Akhil Dodson MD> Date Akhil Dodson MD CC: Rosa Isela Cordova MD; Vincent Herbert MD Date Dictated: 10/30/178 Date Transcribed: 10/30/17 1438 Plate Grainer: CO Signed BEDSIDE GLUCOSE Collected: 10/30/2017 Status: F Source: [place] 11:28 AM [facility] REPOSITORY TYPE CODE TESTS RESULT OUT OF RANGE REFERENCE UNITS LAB L501.080 70-110 mg/dL Normal BEDSIDE GLU 102 Result Comment: MANAGEMENT OF PATIENT CARE PER NURSING PROTOCOL Performed By: #### L501.080 #### [facility] Point [place] [address] BEDSIDE GLUCOSE Collected: 10/30/2017 Status: F Source: [place] 6:45 AM [facility] REPOSITORY TYPE CODE TESTS RESULT OUT OF REFERENCE UNITS RANGE LAB L501.080 70-110 mg/dL High BEDSIDE GLU 122 Result Comment: MANAGEMENT OF PATIENT CARE PER NURSING PROTOCOL Performed By: #### L501.080 #### [facility] Point of Care [address] [place], [place] [address] BASIC METABOLIC Collected: 10/30/2017 Status: F Source: [place] PROFILE (BMP) 6:15 AM [facility] REPOSITORY TYPE CODE TESTS RESULT OUT OF RANGE REFERENCE UNITS LAB L501.0100 74-106 mg/dL High GLU 113 Result Comment: Fasting Glucose result from 100 to 125 mg/dL suggests IMPAIRED HOMEOSTASIS per A.D.A. criteria. Please note revised GLUCOSE reference range effective 2017. LAB L501.1000 7-18 mg/dL Normal BUN 11 LAB L501.1100 0.55-1.02 mg/dL Normal CREAT,SERUM 0.59 Result Comment: The validity of the calculated GFR AND GFRAA in patients over 70 years has not been determined. Clinical correlation is essential. LAB L501.1110 >60 mL/min Normal EST GFR 111 Result Comment: Non- GFR Calc LAB L501.1115 >60 mL/min Normal EST GFR - AA 134 Result Comment: GFR Calc LAB L501.1255 ml/min Normal Estimated CRCL 79.39 LAB L501.1300 10-20 RATIO Normal BUN/CRE 18.6 LAB L501.2200 8.5-10 mg/dL Normal .1 CA 9.0 LAB L501.5300 136-14 mmol/L Normal 5 NA 143 LAB L501.5600 3.5-5. mmol/L Normal 1 K 3.9 LAB L501.5900 98-107 mmol/L Normal CL 105 LAB L501.6100 21.0-3 mmol/L Normal 2.0 CO2 29.0 LAB L501.6200 5-15 Normal GAP 9 Performed By: #### L500.2500 #### [facility] [address] [place], [address] PROTHROMBIN TIME W/INR Collected: 10/30/2017 Status: F Source: [place] 6:15 AM [facility] REPOSITORY TYPE CODE TESTS RESULT OUT OF RANGE REFERENCE UNITS LAB L300.4150 11.7-14.9 SECONDS Normal PROTIME 13.9 LAB L300.4200 Normal INR 1.1 Performed By: #### L300.3900, L300.4310 #### [facility] [address] [place], [address] PARTIAL THROMBOPLAST Collected: 10/30/2017 Status: F Source: [place] TIME 6:15 AM [facility] REPOSITORY TYPE CODE TESTS RESULT OUT OF RANGE REFERENCE UNITS LAB L300.4310 24.1-36.2 Seconds Normal PTT 32.3 Performed By: #### L300.3900, L300.4310 #### [facility] [address] [place], [place], [address] CBC-COMPLETE BLOOD CNT Collected: 10/30/2017 Status: F Source: [place] NO DIFF 6:15 AM [facility] REPOSITORY TYPE CODE TESTS RESULT OUT OF RANGE REFERENCE UNITS LAB L100.1000 4.4-11.0 K/mm3 Normal WBC 5.7 LAB L100.1200 4.2-5.4 M/mm3 Normal RBC 4.59 LAB L100.1300 12.0-15.0 g/dl Normal HGB 12.8 LAB L100.1400 37-47 % Normal HCT 39.4 LAB L100.1500 81-99 fL Normal MCV 85.8 LAB L100.1600 27.0-32.0 pg Normal MCH 27.9 LAB L100.1700 32-36 g/gl Normal MCHC 32.5 LAB L100.1810 11.6-14.6 % Normal RDW CV 13.6 LAB L100.1820 35.1-43.9 fl Normal RDW SD 41.9 LAB L100.1900 150-450 K/mm3 Normal PLT 247 LAB L100.2000 6.2-12.0 fl Normal MPV 11.3 Performed By: #### L100.0500 #### [facility] [address] [place], [place], [address] BEDSIDE GLUCOSE Collected: 10/29/2017 Status: F Source: [place] 10:16 PM [facility] REPOSITORY TYPE CODE TESTS RESULT OUT OF REFERENCE UNITS RANGE LAB L501.080 70-110 mg/dL High BEDSIDE GLU 131 Result Comment: MANAGEMENT OF PATIENT CARE PER NURSING PROTOCOL Performed By: #### L501.080 #### [facility] Point of Care [address] [place], [place] [address] TROPONIN-I Collected: 10/29/2017 Status: F Source: [place] 7:44 PM [facility] REPOSITORY Order Comment: 'TROP' Serial specimen #1, #2 or #3: 3 TYPE CODE TESTS RESULT OUT OF RANGE REFERENCE UNITS LAB L501.4010 <0.045 ng/mL Normal < 0.015 TROPONIN-I Result Comment: TROPONIN-I EXPECTED VALUES <0.045 Negative 0.045 - 0.590 Consistent with Cardiac Damage > OR = 0.600 Critical Value Not every elevated troponin is indicative of WI. These values should be used with clinical judgement in examining the patient's clinical picture for diagnosis. To establish a diagnosis of WI versus myocardial injury, there must be a demonstrated rise and/or fall in the troponin values, in addition to ischemic symptoms, EKG changes, new regional wall motion abnormality, and/or angiographical evidence. PLEASE NOTE: REFERENCE RANGES EDITED 17 Performed By: #### L501.4010 #### [facility] [address] [facility] [address] [place], [place], [id number] TROPONIN-I Collected: 10/29/2017 Status: F Source: [place] 5:12 PM [facility] REPOSITORY Order Comment: 'TROP' Serial specimen #1, #2 or #3: 2 TYPE CODE TESTS RESULT OUT OF RANGE REFERENCE UNITS LAB L501.4010 <0.045 ng/mL Normal < 0.015 TROPONIN-I Result Comment: TROPONIN-I EXPECTED VALUES <0.045 Negative 0.045 - 0.590 Consistent with Cardiac Damage > OR = 0.600 Critical Value Not every elevated troponin is indicative of WI. These values should be used with clinical judgement in examining the patient's clinical picture for diagnosis. To establish a diagnosis of WI versus myocardial injury, there must be a demonstrated rise and/or fall in the troponin values, in addition to ischemic symptoms, EKG changes, new regional wall motion abnormality, and/or angiographical evidence. PLEASE NOTE: REFERENCE RANGES EDITED 17 Performed By: #### L501.4010 #### [facility] [address] [place], [address] BEDSIDE GLUCOSE Collected: 10/29/2017 Status: F Source: [place] 4:46 PM [facility] REPOSITORY TYPE CODE TESTS RESULT OUT OF REFERENCE UNITS RANGE LAB L501.080 70-110 mg/dL High BEDSIDE GLU 113 Result Comment: MANAGEMENT OF PATIENT CARE PER NURSING PROTOCOL Performed By: #### L501.080 #### [facility] Point of Care [address] [place] [address] EMERGENCY DEPARTMENT Observed: 10/29/2017 Status: F Source: [place] SUMMARY 3:49 PM [facility] REPOSITORY [facility] Medical Records Department [address] [place] [address] Emergency Department Summary 10/29/17 1546 MR#: [id number] Acct: [id number] Name: KATHLEEN KHAN V Rep #: [id number] : 1960 57 From: Fermin Glass MD PCP: Vincent Herbert MD Status: ADM ANU - ER Visit Summary Date of Service: 10/29/17 Chief Complaint: [chest pain, cellulitis] History of Present Illness: The patient is a 57 F [that directed to the emergency department by her nurse practitioner due to concern for recurrent cellulitis. She was recently treated as an inpatient for cellulitis and then as an outpatient finished a course of Keflex. She describes the cellulitis on her posterior thighs and buttocks regions. She also states yesterday she started having left-sided chest pain that at times radiates to her left arm. No other associated cardiopulmonary symptoms or dyspnea. She overall appears well and in no acute distress. She states she is pain-free currently. She has cardiac risk factors including hypertension, diabetes, and obesity. No known coronary disease. She has no other complaints. No DVT or PE history or risk factors. She denies any neurological symptoms or complaints.] Physical Examination: [General: The patient appears well and in no apparent distress. Patient is resting comfortably on cart. Skin: Warm, dry, no pallor noted. No rash. Excoriated and irritated type skin to the bilateral posterior thighs and lower buttocks regions, no definite cellulitis, abscess, or infection. Head: Normocephalic, atraumatic Neck: Supple, nontender. Eye: PERRLA, EOMI ENT: Moist mucus membranes, pharynx within normal limits. Cardiovascular: Regular Rate and Rhythm, no gallups or rubs Respiratory: Patient is in no distress, no accessory muscle use, lungs are clear to auscultation, no wheezing, rales or rhonchi Musculoskeletal: normal ROM, no deformity, no tenderness, no swelling. 2+ radial and DP pulses symmetric. GI: No tenderness to palpation, no masses appreciated. No rebound, guarding, or rigidity noted. Neurological: A AND O, normal strength and sensation. Psychiatric: Cooperative] Test Results: [EKG shows a sinus rhythm with a rate of 64, no acute ischemic changes or arrhythmia, overall unchanged from prior EKG. CBC, BMP, and troponin within normal limits. Chest x-ray shows no acute process.] Emergency Department Course and Treatment: [Patient remained pain-free. She was given aspirin. On re-evaluation at 1505 she is again pain-free and her vitals remained stable. She has a overall Heart Score of 4. I feel she requires admission for further evaluation of this chest pain. Patient was discussed with the hospitalist, Dr. Barron, who is agreeable with admission. Patient admitted in stable condition.] Treatment Plan: [see above] Disposition: [Admission, stable condition] Impression: [Chest Pain, nonspecific] This note was generated with Pro[employer] dictation software. It may contain incorrect words, spelling, and punctuation that were not noted in review of the chart prior to signing ED Disposition - Plan for ED Patient: Chief Complaint: Cellulitis What to do if you have Problems For any increased pain, shortness of breath, bleeding, nausea or vomiting, chest pain, or any unexpected problems, contact your Primary Care Provider. Call [facility] ([phone]) or report to the closest Emergency Room. Call 911 if necessary. 10/29/17 1542 <Electronically signed by Fermin Glass MD> Date Fermin Glass MD Cosigner Signature (If Indicated): Date CC: Vincent Herbert MD HISTORY AND PHYSICAL Observed: 10/29/2017 Status: F Source: [place] EXAM 3:44 PM [facility] REPOSITORY [facility] Medical Records Department [address] [place] [address] History and Physical 10/29/17 1510 MR#: [id number] Acct: [id number] Name: KATHLEEN KHAN V Rep #: [id number] : 1960 57 From: Gudelia Barron PCP: Vincent Herbert MD Status: ADM ANU Y Location: [place] [address] Problem List (1) Anxiety and depression Status: Chronic (2) Heart failure Status: Chronic Qualifiers: Heart failure type: unspecified Heart failure chronicity: chronic Qualified Code(s): I50.9 - Heart failure, unspecified (3) Diabetes mellitus, type II Status: Acute Qualifiers: Diabetes mellitus computer terminal operator insulin use: with group home use Diabetes mellitus complication status: with unspecified complications Qualified Code(s): E11.8 - Type 2 diabetes mellitus with unspecified complications; Z79.4 - computer terminal operator (current) use of insulin (4) Chronic back pain Status: Chronic Qualifiers: Back pain location: back pain in unspecified location Back pain laterality: unspecified Qualified Code(s): M54.9 - Dorsalgia, unspecified; G89.29 - Other chronic pain (5) JEREMÍAS (obstructive sleep apnea) Status: Chronic (6) Esophageal reflux Status: Chronic Qualifiers: Esophagitis presence: esophagitis presence not specified Qualified Code(s): K21.9 - Gastro-esophageal reflux disease without esophagitis (7) Morbid obesity Status: Chronic (8) Hypertension Status: Chronic Qualifiers: Hypertension type: essential hypertension Qualified Code(s): I10 - Essential (primary) hypertension (9) Chest pain Status: Acute Qualifiers: Chest pain type: unspecified Qualified Code(s): R07.9 - Chest pain, unspecified (10) Exertional dyspnea Status: Acute History of Present Illness Date of Admission: 10/29/17 Chief Complaint: Chest pain, ? R sided recurrent erythema/chills The patient is a 57 y/o F w/ PMHx: Chronic Back and BL LE Pain following w/ Dr. Pacheco, Diabetes mellitus type II, CHF Unclear Type, Anxiety and Depression, Morbid Obesity, JEREMÍAS, GERD, HTN, Diabetes mellitus type II, Hx Frequent Cellulitis w/ most recent presentation to [facility] 10/21/17-10/23/17 w/ treatment for acute sepsis secondary to acute recurrent R posterior thigh and R buttock cellulitis w/ ID recommendation for hibiclens weekly washes and continuation keflex 500 mg TID for an additional 5 days at discharge who now re- presents to the [facility] ED on 10/29/17 w/ onset of ? recurrent mild right-sided hip, thigh and buttock erythema starting this AM with associated chills sent to the ED for evaluation per her PCP office especially secondary to her recurrent cellulitic presentations but upon ED presentation also noted in addition intermittent L sided sharp, stabbing, 10/10, intermittent chest pain without radiation over the last 48 hours which she had not mentioned at her PCP office w/ dyspnea and concurrently noted exertional dyspnea, symptoms also worse with exertional attempts. She notes she is unable to lay flat well baseline, but seems worse. She also notes increased BL LE ankle edema but notes currently improved. Upon current evaluation patient denies any chest pain at this time. In the ED work-up included T 97.8, heart rate 93, BP 149/81, respiratory rate 18, 93% on room air, CBC unremarkable, remarkable for glucose 167, troponin less than 0.015, chest x-ray with no acute findings, EKG without acute findings. In the ED patient administered aspirin therapy 325 mg p.o. 1 in addition to normal saline. Past Medical History Past Medical History (Chronic Problems): Chronic Problems Anxiety and depression (Chronic) Heart failure (Chronic) Chronic back pain (Chronic) History of pneumonia (Chronic) JEREMÍAS (obstructive sleep apnea) (Chronic) Lumbosacral neuritis (Chronic) Esophageal reflux (Chronic) Morbid obesity (Chronic) Hypertension (Chronic) Allergies vancomycin Allergy (Verified 10/29/17 12:44) Rash amlodipine Adverse Reaction (Verified 10/29/17 12:44) Unknown atenolol Adverse Reaction (Verified 10/29/17 12:44) Unknown bupropion HCl [From Wellbutrin] Adverse Reaction (Verified 10/29/17 12:44) Unknown fluoxetine HCl [From Prozac] Adverse Reaction (Verified 10/29/17 12:44) Unknown meloxicam [From Mobic] Adverse Reaction (Verified 10/29/17 12:44) Unknown metoprolol Adverse Reaction (Verified 10/29/17 12:44) Unknown pregabalin [From Lyrica] Adverse Reaction (Verified 10/29/17 12:44) Unknown quetiapine fumarate [From Seroquel] Adverse Reaction (Verified 10/29/17 12:44) Unknown quinapril HCl [From Accupril] Adverse Reaction (Verified 10/29/17 12:44) Unknown risperidone Adverse Reaction (Verified 10/29/17 12:44) Unknown rofecoxib [From Vioxx] Adverse Reaction (Verified 10/29/17 12:44) Unknown sitagliptin phosphate [From Januvia] Adverse Reaction (Verified 10/29/17 12:44) Unknown venlafaxine HCl [From Effexor] Adverse Reaction (Verified 10/29/17 12:44) Unknown Home Medications: Ambulatory Orders Medication Instructions Recorded Aspirin [Adult Low Dose Aspirin EC] 81 mg PO DAILY 12/02/14 Duloxetine HCl 60 mg PO DAILY 12/02/14 Surgical History: - - Cholecystectomy, hernia repair, cataract surgery, D AND C. Psychiatric History: Anxiety, Depression RESIDENCE HALL DIRECTOR History: No pertinent RESIDENCE HALL DIRECTOR history Lives: Alone Smoking Status: Former smoker - Patient quit her tobacco usage 1997 with prior to this 1 pack per day since youth. Tobacco Use: Non-smoker Alcohol: None Drugs: None - *Family History Sibling History Items: - - Patient notes sibling with heart disease, coronary disease, diabetes, stroke. Maternal History Items: - - Patient notes a maternal family history of heart disease, diabetes, stroke. Paternal History Items: - - Patient notes a paternal family history of hypertension. Review of Systems Constitutional: Reports: Chills, Malaise, Weakness, Fatigue. Denies: Fever, Weight Change HEENT: Denies: Head Aches, Sinus Congestion, Sinus Drainage Cardiovascular: Reports: Chest Pain, Edema, Orthopnea. Denies: Palpitations Respiratory: Reports: Shortness of Breath, Shortness of breath at rest, Shortness of breath upon exertion. Denies: Cough, Sputum production Gastrointestinal: Denies: Abdominal Pain, Nausea, Vomiting Genitourinary: Denies: Dysuria Musculoskeletal: Reports: Back Pain. Denies: Joint Pain, Joint Tenderness Skin: Reports: Skin Changes. Denies: Rash, Wounds Neurological: Denies: Numbness, Tingling, Focal weakness Psychiatric: Reports: Anxiety, Depression. Denies: Homicidal Ideations, Suicidal Ideations Hematologic/ Lymphatic: Denies: Easy Bruising, Easy Bleeding VTE Information - Inpt Only VTE Present on Admission: No VTE Mechan Device Prophylaxis: SCD's VTE Pharm Prophylaxis ordered?: Yes Patient Problems: Active and Suspected Problems Chest pain (Acute) Exertional dyspnea (Acute) Subjective: Seated upright in ED bed, no current chest discomfort. Objective: Physical Examination: General: awake, alert, oriented x 3 and cooperative, seated upright in the ED bed in no apparent distress. Skin: normal color, turgor, no icterus, cyanosis and upon evaluation of right lower extremity as well as posterior buttock regions no evidence of erythema reoccurrence, nontender palpation, no increased warmth to palpation. HEENT: AT/NC, EOMI, PERRLA, MMM, no carotid bruits or JVD noted; however habitus with thickened neck makes examination difficult. Lungs: Breath sounds bilateral bases, moderate effort, no rales, ronchi or wheezing. Heart: Regular rate and rhythm; no gallop, rub audible. Abdomen: soft, mildly obese, NTTP, ND, normal BS, no HSM; her habitus makes examination very difficult. Extremities: no cyanosis, clubbing, no marked lower extremity edema, nonpitting. Neurological: patient awake, alert, oriented x 3; cognitive function intact; pupils equally reactive to light and accomodation; cranial nerves II-XII grossly normal, moving all 4 extremities, no focal deficits, strength related severely globally decreased secondary to habitus. Psychiatric: affect appears normal, no acute evidence of depressive or anxiety feelings. - Physical Exam Vital Signs Temp Pulse Resp BP Pulse Ox 97.8 F 93 18 149/81 H 93 10/29/17 12:43 10/29/17 12:43 10/29/17 12:43 10/29/17 12:43 10/29/17 12:43 Oxygen Delivery Method Room Air Weight: 393 lb 4.874 oz Body Mass Index (BMI) 74.2 Laboratory Tests Past 24 Hrs WBC 7.0 RBC 4.45 Hgb 12.2 Hct 38.3 MCV 86.1 MCH 27.4 MCHC 31.9 L RDW 13.5 RDW Differential 42.5 Plt Count 236 Assessment/Plan All Active Problems Chest pain (Acute) Exertional dyspnea (Acute) Cellulitis (Acute) Sepsis (Acute) Diabetes mellitus, type II (Acute) The patient is a 57 y/o F w/ PMHx: Chronic Back and BL LE Pain following w/ Dr. Pacheco, Diabetes mellitus type II, CHF Unclear Type, Anxiety and Depression, Morbid Obesity, JEREMÍAS, GERD, HTN, Diabetes mellitus type II, Hx Frequent Cellulitis w/ most recent presentation to [facility] 10/21/17-10/23/17 w/ treatment for acute sepsis secondary to acute recurrent R posterior thigh and R buttock cellulitis w/ ID recommendation for hibiclens weekly washes and continuation keflex 500 mg TID for an additional 5 days at discharge who now re- presents to the [facility] ED on 10/29/17 w/ onset of ? recurrent mild right-sided hip, thigh and buttock erythema starting this AM with associated chills sent to the ED for evaluation per her PCP office especially secondary to her recurrent cellulitic presentations but upon ED presentation also noted in addition intermittent L sided sharp, stabbing, 10/10, intermittent chest pain without radiation over the last 48 hours which she had not mentioned at her PCP office w/ dyspnea and concurrently noted exertional dyspnea, symptoms also worse with exertional attempts. (1) Chest Pain, Exertional Dyspnea: In the ED work-up included T 97.8, heart rate 93, BP 149/81, respiratory rate 18, 93% on room air, CBC unremarkable, remarkable for glucose 167, troponin less than 0.015, chest x-ray with no acute findings, EKG without acute findings. In the ED patient administered aspirin therapy 325 mg p.o. 1 in addition to normal saline. Will admit to PCU, place on a monitored bed to assure no acute myocardial infarction with serial cardiac enzymes and EKGs. Patient is unable to perform exercise thus will proceed with AM nuclear stress testing. ASA, NG, morphine. FLP in AM. Mag pending. ECHO pending. (2) CHF Unclear Type: Noting BL LE increased edema, ? orthopnea. Appearance not marked, no pitting edema, CXR unremarkable. Maintain on home regimen aspirin, Lasix, spironolactone, statin, BB with allergy noted nor FAMILIA inhibitor. ECHO pending. SNUG familia wraps to BL LE. Daily weights. HOB, IS. (3) Recent R upper thigh and buttock cellulitis: Patient notes completing Keflex regimen the day prior. Current does not appear erythematous or concerning, afebrile upon presentation, will continue to follow, frequent position changes and if appropriate will add regimen with ID evaluation if needed but does not appear cellulitic at this time. (4) Diabetes mellitus type II: Hold oral home regimen, continue home insulin regimen, ADA diet, accu checks w/ ISS. (5) Morbid Obesity: Weight loss and lifestyle changes encouraged, nutrition consulted. (6) Diabetes mellitus type II: Hold oral home regimen, continue home insulin regimen, ADA diet, accu checks w/ ISS, HgbA1c 7.2% 10/21/2017 8.2%, nutrition consulted for education and teaching. (7) Hypertension: Continue home regimen including Lasix, spironolactone, PRN hydralazine. (8) Hyperlipidemia: Continue home statin regimen. AM FLP. (9) Anxiety and Depression: Continue home regimen of duloxetine, trazodone. (10) JEREMÍAS: BIPAP q HS. (11) GERD: Ranitidine. (12) DVT prophylaxis: SCD, Lovenox. Code Visit OBSV E AND M: [id number] Initial observation care L3 10/29/17 1544 <Electronically signed by Gudelia Barron > Date Gudelia Barron Cosigner Signature: Date (if applicable) CC: Gudelia Barron; Vincent Herbert MD Signed CHEST 1 VIEW Observed: 10/29/2017 Status: F Source: [place] (PORTABLE) 2:06 PM [facility] REPOSITORY [facility] Imaging Services [address] [place] [address] Chest 1 View (Portable) MR#: [id number] Acct: [id number] Name: KATHLEEN KHAN #: [id number] : 1960 F 57 From: Horace Maldonado MD PCP: Vincent Herbert MD Status: REG ER Study: Chest 1 View (Portable) Date of Exam: 10/29/17 Exam# [id number] Ordering Dr: Fermin Glass MD STUDY: X-RAY CHEST REASON FOR EXAM: Female, 57 years old. Sialitis overlying the right buttock. Fever and chills. TECHNIQUE: Single AP portable view of the chest. COMPARISON: Comparison is made with prior study dated October 21, 2017. FINDINGS: EKG electrode are seen. Scattered calcified granulomas. The lungs are clear. There is no demonstrated pleural abnormality. There is borderline cardiomegaly. Normal mediastinum and erich. Normal visualized pulmonary arteries. There is atherosclerotic tortuosity of the aortic arch and descending thoracic aorta. There are diffuse degenerative changes of the visualized thoracic spine. Normal visualized ribs, clavicles, and shoulders. There is no demonstrated abnormality of the visualized soft tissue structures of the upper abdomen. RAD/Chest 1 View (Portable) IMPRESSION: No acute abnormality is seen. Electronically Signed: Horaec Maldonado MD at 14:50 EDT Tel [phone], Service support , CC: Stephane Glass MD; Vincent Herbert MD Plate Grainer: Signed BASIC METABOLIC Collected: 10/29/2017 Status: F Source: [place] PROFILE (BMP) 1:45 PM [facility] REPOSITORY TYPE CODE TESTS RESULT OUT OF RANGE REFERENCE UNITS LAB L501.0100 74-106 mg/dL High GLU 167 Result Comment: Fasting Glucose result greater than or equal to 126 mg/dL suggests DIABETES MELLITUS per A.D.A. criteria. Please note revised GLUCOSE reference range effective 2017. LAB L501.1000 7-18 mg/dL Normal BUN 13 LAB L501.1100 0.55-1.02 mg/dL Normal CREAT,SERUM 0.69 Result Comment: The validity of the calculated GFR AND GFRAA in patients over 70 years has not been determined. Clinical correlation is essential. LAB L501.1110 >60 mL/min Normal EST GFR 93 Result Comment: Non- GFR Calc LAB L501.1115 >60 mL/min Normal EST GFR - AA 113 Result Comment: GFR Calc LAB L501.1255 ml/min Normal Estimated CRCL 67.88 LAB L501.1300 10-20 RATIO Normal BUN/CRE 18.9 LAB L501.2200 8.5-10 mg/dL Normal .1 CA 8.7 LAB L501.5300 136-14 mmol/L Normal 5 NA 144 LAB L501.5600 3.5-5. mmol/L Normal 1 K 4.1 Result Comment: Slight Hemolysis, Result may be falsely increased. LAB L501.5900 98-107 mmol/L Normal CL 103 LAB L501.6100 21.0-32.0 mmol/L Normal CO2 30.0 LAB L501.6200 5-15 Normal GAP 11 Performed By: #### L500.2500 #### [facility] [address] [place], [place], [address] CBC W/DIFF, AUTOMATED Collected: 10/29/2017 Status: F Source: [place] 1:45 PM [facility] REPOSITORY TYPE CODE TESTS RESULT OUT OF RANGE REFERENCE UNITS LAB L100.1000 4.4-11.0 K/mm3 Normal WBC 7.0 LAB L100.1200 4.2-5.4 M/mm3 Normal RBC 4.45 LAB L100.1300 12.0-15.0 g/dl Normal HGB 12.2 LAB L100.1400 37-47 % Normal HCT 38.3 LAB L100.1500 81-99 fL Normal MCV 86.1 LAB L100.1600 27.0-32.0 pg Normal MCH 27.4 LAB L100.1700 32-36 g/gl Low MCHC 31.9 LAB L100.1810 11.6-14.6 % Normal RDW CV 13.5 LAB L100.1820 35.1-43.9 fl Normal RDW SD 42.5 LAB L100.1900 150-450 K/mm3 Normal PLT 236 LAB L100.2000 6.2-12.0 fl Normal MPV 11.2 LAB L100.2100 47-70 % High NEUT% 75.5 LAB L100.2200 19-41 % Low LY% 16.0 LAB L100.2300 0-10 % Normal MONO% 5.0 LAB L100.2400 0-5 % Normal EO% 3.3 LAB L100.2500 0-1 % Normal BASO% 0.1 LAB L100.2550 0.0-0.9 % Normal IM GRAN % 0.100 Result Comment: IG% - Immature Granulocytes (promyelocytes, myelocytes and metamyelocytes) > 1% indicates that a LEFT SHIFT is Present. LAB L100.2620 2.0-7.7 X10 3/uL Normal Absolute Neut 5.3 LAB L100.2720 0.83-4.51 X10 3/ul Normal Absolute Lymph 1.12 Performed By: #### L100.0100 #### [facility] [address] [place], [place], [address] TROPONIN-I Collected: 10/29/2017 Status: F Source: [place] 1:45 PM [facility] REPOSITORY TYPE CODE TESTS RESULT OUT OF RANGE REFERENCE UNITS LAB L501.4010 <0.045 ng/mL Normal < 0.015 TROPONIN-I Result Comment: TROPONIN-I EXPECTED VALUES <0.045 Negative 0.045 - 0.590 Consistent with Cardiac Damage > OR = 0.600 Critical Value Not every elevated troponin is indicative of WI. These values should be used with clinical judgement in examining the patient's clinical picture for diagnosis. To establish a diagnosis of WI versus myocardial injury, there must be a demonstrated rise and/or fall in the troponin values, in addition to ischemic symptoms, EKG changes, new regional wall motion abnormality, and/or angiographical evidence. PLEASE NOTE: REFERENCE RANGES EDITED 17 Performed By: #### L501.4010 #### [facility] [address] [place], [place], [address] MAGNESIUM Collected: 10/29/2017 Status: F Source: [place] 1:45 PM [facility] REPOSITORY TYPE CODE TESTS RESULT OUT OF RANGE REFERENCE UNITS LAB L501.5200 1.6-2.6 mg/dL Normal MG 2.2 Result Comment: Slight Hemolysis, Result may be falsely increased. Performed By: #### L501.5200 #### [facility] [address] [place], [address] PROGRESS Observed: 10/29/2017 Status: COMPLETED Source: [place] 12:21 PM [facility] REPOSITORY HNO ID: [id number] Author: Winnie (Patsy) Xavier Service: (none) Author Type: Nurse Practitioner Type: Progress Notes Filed: 10/29/2017 12:57 PM Note Text: 10/29/2017 No chief complaint on file. SUBJECTIVE: This is a 57 year old that is here today for concern that cellulitis is not completely healing. She was seen and treated through [facility] for right thigh and buttock cellulitis with clindamycin to start for 10 days, then returned with sepsis and was given IV zosyn and admitted then sent home with keflex. She is worried that it is now getting hot to touch again, slightly red, hard to touch and she is having episodes of increased HR at rest. This happened before she had to be admitted. She denies any known fever or chills. BS have been less than 150. She is eating and drinking normally. Denies dizziness or lightheadedness. She would like another course of antibiotics. PAST MEDICAL HISTORY Diagnosis Date - Abnormal glandular Papanicolaou smear of cervix 05/30/05 ABNL GLANDULAR PAP SMEAR CERVIX - Acute gastritis without mention of hemorrhage - Anxiety state, unspecified - Arrhythmia - Chronic cholecystitis - Chronic obstructive pulmonary disease (COPD) ([facility]) - Congestive heart failure (HCC) 10/03/2011 - Diabetes ([facility]) - diabetes II 2010 - Diaphragmatic hernia without mention of obstruction or gangrene - Dysthymic disorder Depression (non-psychotic) - Esophageal reflux - Essential hypertension, benign - Generalized OA - Localized osteoarthrosis not specified whether primary or secondary, lower leg - Major depressive disorder, recurrent episode - Mucous polyp of cervix 07/19/05 - Other and unspecified anterior pituitary hyperfunction 10/13/05 elevated prolactin level-was normal in 2011 - PMH - PAST MEDICAL HISTORY OF sleep apnea - PMH - PAST MEDICAL HISTORY OF sleep apnea - SVT (supraventricular tachycardia) (HCC) - 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 ALLERGIES Lyrica [Pregabalin]; Accupril [Quinapril Hcl]; Amlodipine; Atenolol; Effexor [Venlafaxine Hcl]; Januvia [Sitagliptin]; Metoprolol; Mobic [Meloxicam]; Prozac [Fluoxetine Hcl]; Risperidone; Seroquel [Quetiapine Fumarate]; Vancomycin; Vioxx [Rofecoxib]; Wellbutrin [Bupropion Hcl] MEDICATIONS Current Outpatient Prescriptions: atorvastatin (LIPITOR) 20 mg tablet Take 1 tablet by mouth once daily. cephALEXin (KEFLEX) 500 mg capsule Take 500 mg by mouth three times daily. X 5 days nabumetone (RELAFEN) 500 mg tablet Take 1 tablet by mouth once daily. TAKE WITH FOOD gabapentin (NEURONTIN) 300 mg capsule Take 1 capsule by mouth twice daily for 90 days. Blood-Glucose Meter monitoring kit Glucose Meter of Choice - Kit - Dx: Type 2 DM - Controlled E11.9 Use twice daily as directed insulin glargine (BASAGLAR KWIKPEN U-100 INSULIN) 100 unit/mL (3 mL) inpn Inject 30 Units subcutaneously daily at bedtime. nystatin (MYCOSTATIN) cream Apply 1 application to affected area twice daily. baclofen (LIORESAL) 10 mg tablet Take 1 tablet by mouth twice daily. linagliptin (TRADJENTA) 5 mg tab Take 1 tablet by mouth once daily. spironolactone (ALDACTONE) 25 mg tablet Take 1 tablet by mouth once daily. ranitidine (ZANTAC) 150 mg tablet Take 1 tablet by mouth twice daily. furosemide (LASIX) 20 mg tablet Take 1 tablet by mouth once daily. DULoxetine (CYMBALTA) 60 mg capsule Take 1 capsule by mouth once daily. primidone (MYSOLINE) 50 mg tablet TAKE ONE TABLET ONCE DAILY AT BEDTIME Insulin [place], Disposable, (BD ULTRA-FINE MADI PEN NEEDLE) 32 gauge x ndle Use one needle for each dose. 1/day. HYDROcodone-acetaminophen (NORCO) 5-325 mg per tablet TAKE ONE TABLET TWICE DAILY blood sugar diagnostic (BLOOD GLUCOSE TEST) test strip Test blood sugar(s) 2 times daily. Dx: Type 2 DM - Controlled E11.9 Insulin: No TRUETEST TEST STRIPS test strip TEST twice a day lancets (TRUEPLUS LANCETS) 30 gauge misc Test twice daily Dx: 250.02 traZODone (DESYREL) 50 mg tablet Take 0.5 tablets by mouth daily at bedtime. ARIPiprazole (ABILIFY) 10 mg tablet Take 1 tablet by mouth once daily. potassium chloride ER (K-DUR, KLOR-CON) 10 mEq tablet Take 1 tablet by mouth once daily. nitroglycerin sublingual (NITROQUICK) 0.4 mg SL tablet Dissolve 1 tablet under the tongue as needed. FOR CHEST PAIN. IF NO RELIEF CALL 911 polyethylene glycol 3350 (MIRALAX, GLYCOLAX) 17 gram/dose powder Take 17 g by mouth once daily. aspirin, enteric coated (ECOTRIN LOW STRENGTH) 81 mg EC tablet Take 1 tablet by mouth once daily. No current facility-administered medications for this visit. Medications and allergies reviewed by this provider. 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 . Vital signs reviewed by this provider. PHYSICAL EXAMINATION: General appearance: Well appearing, alert, in no acute distress, well-hydrated, well nourished. and Morbidly obese Skin: pt points to coccyx and intergluteal cleft, there is an area that is firm to touch, tender, pink and warm. She also points to upper lateral right thigh. No area of redness, but she does report tenderness with palpation. Difficult to ascertain firmness due to body habitus. Bilateral posterior thighs dark red/purple- baseline per pt. Blanchable. Lungs: Lungs clear to auscultation. No wheezing, rhonchi, rales Heart: RRR without murmur, gallop, or rubs. No ectopy Peripheral pulses: Capillary refill <2secs, strong peripheral pulses ASSESSMENT/PLAN: 1. Cellulitis of skin - ICD9: 682.9, ICD10: L03.90 - Will her recent history, I believe ER visit for possible IV antibiotics is warranted- she failed outpatient therapy. She could use stat labs with the symptoms she is having to rule out the start of sepsis. Report called to [facility] ER. SOFIA PorterOV Observed: 10/29/2017 Status: COMPLETED Source: [place] 11:20 AM [facility] REPOSITORY Office Visit (FAMPWS) BILLKATHLEEN Alan ([id number]) 1960 F Date Time Provider Department 10/29/17 11:20 AM [facility] During your visit today, we recorded the following information about you: Temperature Pulse Blood pressure Weight 97.7 degrees 76/minute 120/72 179.6 kg [place] APRN.CNP 10/29/2017 12:57 PM Signed 10/29/2017 No chief complaint on file. SUBJECTIVE: This is a 57 year old that is here today for concern that cellulitis is not completely healing. She was seen and treated through [facility] for right thigh and buttock cellulitis with clindamycin to start for 10 days, then returned with sepsis and was given IV zosyn and admitted then sent home with keflex. She is worried that it is now getting hot to touch again, slightly red, hard to touch and she is having episodes of increased HR at rest. This happened before she had to be admitted. She denies any known fever or chills. BS have been less than 150. She is eating and drinking normally. Denies dizziness or lightheadedness. She would like another course of antibiotics. PAST MEDICAL HISTORY Diagnosis Date - Abnormal glandular Papanicolaou smear of cervix 05/30/05 ABNL GLANDULAR PAP SMEAR CERVIX - Acute gastritis without mention of hemorrhage - Anxiety state, unspecified - Arrhythmia - Chronic cholecystitis - Chronic obstructive pulmonary disease (COPD) (HCC) - Congestive heart failure (HCC) 10/03/2011 - Diabetes ([facility]) - diabetes II 2010 - Diaphragmatic hernia without mention of obstruction or gangrene - Dysthymic disorder Depression (non-psychotic) - Esophageal reflux - Essential hypertension, benign - Generalized OA - Localized osteoarthrosis not specified whether primary or secondary, lower leg - Major depressive disorder, recurrent episode - Mucous polyp of cervix 07/19/05 - Other and unspecified anterior pituitary hyperfunction 10/13/05 elevated prolactin level-was normal in 2011 - PMH - PAST MEDICAL HISTORY OF sleep apnea - PMH - PAST MEDICAL HISTORY OF sleep apnea - SVT (supraventricular tachycardia) (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 ALLERGIES Lyrica [Pregabalin]; Accupril [Quinapril Hcl]; Amlodipine; Atenolol; Effexor [Venlafaxine Hcl]; Januvia [Sitagliptin]; Metoprolol; Mobic [Meloxicam]; Prozac [Fluoxetine Hcl]; Risperidone; Seroquel [Quetiapine Fumarate]; Vancomycin; Vioxx [Rofecoxib]; Wellbutrin [Bupropion Hcl] MEDICATIONS Current Outpatient Prescriptions: atorvastatin (LIPITOR) 20 mg tablet Take 1 tablet by mouth once daily. cephALEXin (KEFLEX) 500 mg capsule Take 500 mg by mouth three times daily. X 5 days nabumetone (RELAFEN) 500 mg tablet Take 1 tablet by mouth once daily. TAKE WITH FOOD gabapentin (NEURONTIN) 300 mg capsule Take 1 capsule by mouth twice daily for 90 days. Blood-Glucose Meter monitoring kit Glucose Meter of Choice - Kit - Dx: Type 2 DM - Controlled E11.9 Use twice daily as directed insulin glargine (BASAGLAR KWIKPEN U-100 INSULIN) 100 unit/mL (3 mL) inpn Inject 30 Units subcutaneously daily at bedtime. nystatin (MYCOSTATIN) cream Apply 1 application to affected area twice daily. baclofen (LIORESAL) 10 mg tablet Take 1 tablet by mouth twice daily. linagliptin (TRADJENTA) 5 mg tab Take 1 tablet by mouth once daily. spironolactone (ALDACTONE) 25 mg tablet Take 1 tablet by mouth once daily. ranitidine (ZANTAC) 150 mg tablet Take 1 tablet by mouth twice daily. furosemide (LASIX) 20 mg tablet Take 1 tablet by mouth once daily. DULoxetine (CYMBALTA) 60 mg capsule Take 1 capsule by mouth once daily. primidone (MYSOLINE) 50 mg tablet TAKE ONE TABLET ONCE DAILY AT BEDTIME Insulin Hamlin, Disposable, (BD ULTRA-FINE MADI PEN NEEDLE) 32 gauge x 32 ndle Use one needle for each dose. 1/day. HYDROcodone-acetaminophen (NORCO) 5-325 mg per tablet TAKE ONE TABLET TWICE DAILY blood sugar diagnostic (BLOOD GLUCOSE TEST) test strip Test blood sugar(s) 2 times daily. Dx: Type 2 DM - Controlled E11.9 Insulin: No TRUETEST TEST STRIPS test strip TEST twice a day lancets (TRUEPLUS LANCETS) 30 gauge misc Test twice daily Dx: 250.02 traZODone (DESYREL) 50 mg tablet Take 0.5 tablets by mouth daily at bedtime. ARIPiprazole (ABILIFY) 10 mg tablet Take 1 tablet by mouth once daily. potassium chloride ER (K-DUR, KLOR-CON) 10 mEq tablet Take 1 tablet by mouth once daily. nitroglycerin sublingual (NITROQUICK) 0.4 mg SL tablet Dissolve 1 tablet under the tongue as needed. FOR CHEST PAIN. IF NO RELIEF CALL 911 polyethylene glycol 3350 (MIRALAX, GLYCOLAX) 17 gram/dose powder Take 17 g by mouth once daily. aspirin, enteric coated (ECOTRIN LOW STRENGTH) 81 mg EC tablet Take 1 tablet by mouth once daily. No current facility-administered medications for this visit. Medications and allergies reviewed by this provider. 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 . Vital signs reviewed by this provider. PHYSICAL EXAMINATION: General appearance: Well appearing, alert, in no acute distress, well-hydrated, well nourished. and Morbidly obese Skin: pt points to coccyx and intergluteal cleft, there is an area that is firm to touch, tender, pink and warm. She also points to upper lateral right thigh. No area of redness, but she does report tenderness with palpation. Difficult to ascertain firmness due to body habitus. Bilateral posterior thighs dark red/purple- baseline per pt. Blanchable. Lungs: Lungs clear to auscultation. No wheezing, rhonchi, rales Heart: RRR without murmur, gallop, or rubs. No ectopy Peripheral pulses: Capillary refill <2secs, strong peripheral pulses ASSESSMENT/PLAN: 1. Cellulitis of skin - ICD9: 682.9, ICD10: L03.90 - Will her recent history, I believe ER visit for possible IV antibiotics is warranted- she failed outpatient therapy. She could use stat labs with the symptoms she is having to rule out the start of sepsis. Report called to [facility] ER. 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 Can take gabapentin. Patient is unsure of reaction. ACCUPRIL (QUINAPRIL HCL) 08/12/2005 5 - Intolerance Comments: dizziness AMLODIPINE 04/24/2008 7 - Swelling Comments: Leg edema ATENOLOL 09/29/2010 7 - Swelling EFFEXOR (VENLAFAXINE HCL) 09/22/2005 Comments: swelling high blood pressure JANUVIA (SITAGLIPTIN) 09/21/2011 8 - GI Upset 14 - Other: See Comments Comments: Patient states she couldn't eat METOPROLOL 09/21/2009 7 - Swelling MOBIC (MELOXICAM) 08/12/2005 8 - GI Upset PROZAC (FLUOXETINE HCL) 08/12/2005 5 - Intolerance Comments: tremor RISPERIDONE 12/22/2009 1 - Mental Status Change SEROQUEL (QUETIAPINE FUMARATE) 10/05/2006 Comments: hypertension,swelling VANCOMYCIN 08/10/2017 9 - Itching 14 - Other: See Comments Comments: red all over VIOXX (ROFECOXIB) 08/12/2005 8 - GI Upset WELLBUTRIN (BUPROPION HCL) 08/12/2005 5 - Intolerance Comments: nightmares Date Reviewed: 10/29/2017 Reviewed by: Zeonbia Navarro) CARRIE Calixto - Fully Assessed Primary Visit Diagnosis:Cellulitis of skin [L03.90] Prescriptions as of 10/29/2017 Sig: ATORVASTATIN 20 MG TABLET Take 1 tablet by mouth once d* CEPHALEXIN 500 MG CAPSULE Take 500 mg by mouth three ti* NABUMETONE 500 MG TABLET Take 1 tablet by mouth once d* GABAPENTIN 300 MG CAPSULE Take 1 capsule by mouth twice* BLOOD-GLUCOSE METER KIT Glucose Meter of Choice - Kit* INSULIN GLARGINE (U-100) 100 * Inject 30 Units subcutaneousl* NYSTATIN 100,000 UNIT/GRAM TO* Apply 1 application to affect* BACLOFEN 10 MG TABLET Take 1 tablet by mouth twice * LINAGLIPTIN 5 MG TABLET Take 1 tablet by mouth once d* SPIRONOLACTONE 25 MG TABLET Take 1 tablet by mouth once d* RANITIDINE 150 MG TABLET Take 1 tablet by mouth twice * FUROSEMIDE 20 MG TABLET Take 1 tablet by mouth once d* DULOXETINE 60 MG CAPSULE,JODI* Take 1 capsule by mouth once * PRIMIDONE 50 MG TABLET TAKE ONE TABLET ONCE DAILY AT* PEN NEEDLE, DIABETIC 32 GAUGE* Use one needle for each dose.* HYDROCODONE 5 MG-ACETAMINOPHE* TAKE ONE TABLET TWICE DAILY BLOOD SUGAR DIAGNOSTIC STRIPS Test blood sugar(s) 2 times d* TRUETEST TEST STRIPS TEST twice a day LANCETS 30 GAUGE Test twice daily Dx: 250.02 TRAZODONE 50 MG TABLET Take 0.5 tablets by mouth padmini* ARIPIPRAZOLE 10 MG TABLET Take 1 tablet by mouth once d* POTASSIUM CHLORIDE ER 10 MEQ * Take 1 tablet by mouth once d* NITROGLYCERIN 0.4 MG SUBLINGU* Dissolve 1 tablet under the t* POLYETHYLENE GLYCOL 3350 17 G* Take 17 g by mouth once daily. ASPIRIN 81 MG TABLET,DELAYED * Take 1 tablet by mouth once d* Problem List As Of Date 10/29/2017 Noted Resolved Major depressive disorder, recurrent episode, u*INVALID FOR*11/24/2014 Priority: A More... Anxiety state [F41.1] INVALID FOR* BENIGN HYPERTENSION [I10] INVALID FOR* OSTEOARTHROS NOS-UNSPEC [M19.90] INVALID FOR*02/07/2007 ABNL GLANDULAR PAP SMEAR CERVIX [R87.619] INVALID FOR* HYPERPROLACTINEMIA [E22.9] INVALID FOR* IRREGULAR MENSTRUATION [N92.6] INVALID FOR* ESOPHAGEAL REFLUX [K21.9] INVALID FOR* ACUTE GASTRITIS W/O HEMORRHAGE [K29.00] INVALID FOR*02/07/2007 DIAPHRAGMATIC HERNIA [K44.9] INVALID FOR* Unspecified gastritis and gastroduodenitis with*INVALID FOR*07/24/2016 Localized osteoarthrosis not specified whether *INVALID FOR*07/24/2016 Priority: A More... Pain in joint, site unspecified [M25.50] INVALID FOR*07/24/2016 Routine general medical examination at a health*INVALID FOR*11/29/2011 Class: Chronic More... Routine gynecological examination [Z01.419] INVALID FOR*11/29/2011 Class: Chronic More... More... Morbid obesity [E66.01] INVALID FOR* Priority: Very Severe Hyperprolactinemia [E22.1] INVALID FOR*01/30/2012 Obstructive sleep apnea [G47.33] INVALID FOR* Priority: Severe More... Medication side effects [T88.7XXA] INVALID FOR*08/10/2017 SVT (supraventricular tachycardia) [I47.1] Priority: A Type II or unspecified type diabetes mellitus w*INVALID FOR*04/10/2012 Priority: Moderate More... Congestive heart failure [I50.9] INVALID FOR* Spondylolisthesis [M43.10] INVALID FOR* Lumbar facet arthropathy [M47.816] INVALID FOR* DDD (degenerative disc disease), lumbar [M51.36]INVALID FOR* Diabetes mellitus [E11.9] INVALID FOR*11/24/2014 DDD (degenerative disc disease), cervical [M50.*INVALID FOR* DM (diabetes mellitus) (HCC) [E11.9] INVALID FOR* PMB (postmenopausal bleeding) [N95.0] INVALID FOR* Dysthymia [F34.1] INVALID FOR* Major depressive disorder, recurrent episode, m*INVALID FOR* More... Pain disorder with psychological factors [F45.4*INVALID FOR* Diffuse myofascial pain syndrome [M79.1] INVALID FOR* Bilateral primary osteoarthritis of knee [M17.0]INVALID FOR* Obesity, Class III, BMI >= 40 [E66.01] INVALID FOR*10/20/2017 Liver disease [K76.9] INVALID FOR* More... Umbilical hernia without obstruction and withou*INVALID FOR* More... Encounter Status:Closed by WINNIE PARK on 10/29/17 PROGRESS Observed: 10/24/2017 Status: COMPLETED Source: [facility] 11:30 AM [facility] REPOSITORY HNO ID: [id number] Author: Viviana Pope (Pharmacist) Service: (none) Author Type: Pharmacist Type: Progress Notes Filed: 10/24/2017 2:30 PM Note Text: Patient consents to pharmacy collaborative practice agreement. TELEPHONIC APPOINTMENT REASON FOR CONSULT: DM? GOALS: A1c <?7% CONSULTING PROVIDER: Dr. Herbert?? Date of Consult: 06/2017 Kathleen Khan is a 57 year old female was last seen in [facility] by PCP, Dr. Vincent Herbert MD on 10/20/17 - was started on clindamycin for cellulitis on buttock. Subjective: Patient is presenting today for f/u pharmacotherapy management appointment for diabetes. At last PharmD visit (telephonic appt) on 09/24/17, glimepiride dose was decreased from 4mg to 2mg daily. INTERIM HISTORY: Reports being recently hospitalized - just got home yesterday Went to hospital on Sunday this week - for cellulitis Now taking cephalexin 500mg q8h x 5 days Denies other medication changes during hospitalization Started procedure to get gastric bypass; surgery not yet scheduled States she is no longer on indomethacin - now on nabumetone (EPIC list already updated) Claims DM is going well Did get some steroids in hospital and sugars are still slightly elevated, but coming back down Lowest BG recently is 80, nothing less than 70 mg/dL Patient interested in getting off linagliptin Past DM medications: Metformin IR and ER - GI intolerance (had been on it for years and tolerated it well but then it suddenly it started causing diarrhea; has tried getting back on metformin about 3 times since then) Current DM Medications: Insulin glargine (Basaglar) 30 units QHS Linagliptin 5mg QAM Glimepiride 2mg QAM (hasn't been taking because BGs went <100, had some <80; stopped ~2-3 weeks ago) ? Current HTN Medications: Furosemide 20mg once daily Spironolactone 25mg once daily Preventative Medications: ? On FAMILIA/ARB: No ? On Statin: No ? On ASA: Yes ROS: ? Patient denies CP, SOB, ARAIZA, blurred vision, dizziness or lightheadedness ? Patient denies symptoms of hypoglycemia (sweating, anxiety, palpitations, hunger, and tremor) ? Patient denies symptoms of hyperglycemia (polyuria, polydipsia, polyphagia) ? Patient denies potential medication adverse effects DIET/EXERCISE/SOCIAL Hx: ? Watching carbs: eating less pasta and potatoes; not eating bread ? Doing more exercise - walking more; doing some arm and leg exercises with thera-band (resistance training) MEDICATIONS: ? Pill bottles are not present. ? Adherence: denies missed doses. ? Pharmacy: [facility] ? Rx coverage: [employer] ? Affordability: no isues ? Diabetes supplies: [facility] brand ? Organization System: none ACTIVE PROBLEM LIST Anxiety State Essential Hypertension, Benign ABNL GLANDULAR PAP SMEAR CERVIX HYPERPROLACTINEMIA Irregular Menstrual Cycle Esophageal Reflux Diaphragmatic Hernia Without Mention of Obstruction Or Gangrene Morbid Obesity (Hcc) Obstructive Sleep Apnea Svt (Supraventricular Tachycardia) ([facility]) Congestive Heart Failure (Hcc) Spondylolisthesis Lumbar Facet Arthropathy Ddd (Degenerative Disc Disease), Lumbar Ddd (Degenerative Disc Disease), Cervical Dm (Diabetes Mellitus) ([facility]) Pmb (Postmenopausal Bleeding) Dysthymia Major depressive disorder, recurrent episode, moderate ([facility]) Pain Disorder With Psychological Factors Diffuse Myofascial Pain Syndrome Bilateral Primary Osteoarthritis of Knee Liver Disease Umbilical Hernia Without Obstruction and Without Gangrene PAST MEDICAL HISTORY Diagnosis Date - Abnormal glandular Papanicolaou smear of cervix 05/30/05 ABNL GLANDULAR PAP SMEAR CERVIX - Acute gastritis without mention of hemorrhage - Anxiety state, unspecified - Arrhythmia - Chronic cholecystitis - Chronic obstructive pulmonary disease (COPD) (HCC) - Congestive heart failure (HCC) 10/03/2011 - Diabetes (HCC) - diabetes II 2010 - Diaphragmatic hernia without mention of obstruction or gangrene - Dysthymic disorder Depression (non-psychotic) - Esophageal reflux - Essential hypertension, benign - Generalized OA - Localized osteoarthrosis not specified whether primary or secondary, lower leg - Major depressive disorder, recurrent episode - Mucous polyp of cervix 07/19/05 - Other and unspecified anterior pituitary hyperfunction 10/13/05 elevated prolactin level-was normal in 2011 - PMH - PAST MEDICAL HISTORY OF sleep apnea - PMH - PAST MEDICAL HISTORY OF sleep apnea - SVT (supraventricular tachycardia) (HCC) - 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 ALLERGIES Allergen Reactions - Lyrica [Pregabalin] Anaphylaxis Not sure if accurate. Can take gabapentin. Patient is unsure of reaction. - Accupril [Quinapril* Intolerance dizziness - Amlodipine Swelling Leg edema - Atenolol Swelling - Effexor [Venlafaxin* swelling high blood pressure - Januvia [Sitaglipti* GI Upset, Other: See Comments Patient states she couldn't eat - Metoprolol Swelling - Mobic [Meloxicam] GI Upset - Prozac [Fluoxetine * Intolerance tremor - Risperidone Mental Status Change - Seroquel [Quetiapin* hypertension,swelling - Vancomycin Itching, Other: See Comments red all over - Vioxx [Rofecoxib] GI Upset - Wellbutrin [Bupropi* Intolerance nightmares Medication List Medication Directions Comments Action/Plan ARIPiprazole (ABILIFY) 10 mg tablet Take 1 tablet by mouth once daily. aspirin, enteric coated (ECOTRIN LOW STRENGTH) 81 mg EC tablet Take 1 tablet by mouth once daily. baclofen (LIORESAL) 10 mg tablet Take 1 tablet by mouth twice daily. blood sugar diagnostic (BLOOD GLUCOSE TEST) test strip Test blood sugar(s) 2 times daily. Dx: Type 2 DM - Controlled E11.9 Insulin: No Blood-Glucose Meter monitoring kit Glucose Meter of Choice - Kit - Dx: Type 2 DM - Controlled E11.9 Use twice daily as directed clindamycin (CLEOCIN) 150 mg capsule Take 1 capsule by mouth four times daily. Discontinued; switched to cephalexin DULoxetine (CYMBALTA) 60 mg capsule Take 1 capsule by mouth once daily. furosemide (LASIX) 20 mg tablet Take 1 tablet by mouth once daily. gabapentin (NEURONTIN) 300 mg capsule Take 1 capsule by mouth twice daily for 90 days. glimepiride (AMARYL) 2 mg tablet Take 1 tablet by mouth once daily. Not taking HYDROcodone-acetaminophen (NORCO) 5-325 mg per tablet TAKE ONE TABLET TWICE DAILY Discontinued: 10/17/2017 4:45 PM insulin glargine (BASAGLAR KWIKPEN U-100 INSULIN) 100 unit/mL (3 mL) inpn Inject 30 Units subcutaneously daily at bedtime. taking Insulin Hamlin, Disposable, (BD ULTRA-FINE MADI PEN NEEDLE) 32 gauge x 5/32 ndle Use one needle for each dose. 1/day. lancets (TRUEPLUS LANCETS) 30 gauge misc Test twice daily Dx: 250.02 linagliptin (TRADJENTA) 5 mg tab Take 1 tablet by mouth once daily. taking nabumetone (RELAFEN) 500 mg tablet Take 1 tablet by mouth once daily. TAKE WITH FOOD nitroglycerin sublingual (NITROQUICK) 0.4 mg SL tablet Dissolve 1 tablet under the tongue as needed. FOR CHEST PAIN. IF NO RELIEF CALL 911 nystatin (MYCOSTATIN) cream Apply 1 application to affected area twice daily. polyethylene glycol 3350 (MIRALAX, GLYCOLAX) 17 gram/dose powder Take 17 g by mouth once daily. potassium chloride ER (K-DUR, KLOR-CON) 10 mEq tablet Take 1 tablet by mouth once daily. primidone (MYSOLINE) 50 mg tablet TAKE ONE TABLET ONCE DAILY AT BEDTIME ranitidine (ZANTAC) 150 mg tablet Take 1 tablet by mouth twice daily. spironolactone (ALDACTONE) 25 mg tablet Take 1 tablet by mouth once daily. traZODone (DESYREL) 50 mg tablet Take 0.5 tablets by mouth daily at bedtime. TRUETEST TEST STRIPS test strip TEST twice a day GLYCEMIC CONTROL: ? Glucometer present at visit: No ? SMBG?s: Date Fasting AM 2 hr PP Before Lunch 2 hr PP Before Dinner 10/24 141 9 198 (claims steroid effect) 10/20 116 10/19 116 124 10/18 125 142 10/17 124 145 10/16 124 141 10/15 134 130 10/14 120 124 10/13 141 128 10/11 143 123 ? Hypoglycemia: none ? How corrected: n/a Objective: VITALS: n/a (telephonic appt) Last 3 Encounter BP Readings: Date: BP: 10/20/2017 132/80 09/17/2017 130/82 09/14/2017 124/76 Wt: 182 kg (401 lb 3.2 oz) BMI: 75.81 kg/(m2) LABS Lab Results Component Value Date HBA1C 6.8 10/20/2017 HBA1C 7.8 07/20/2017 HBA1C 6.7 07/24/2016 CMP: Glucose 249 08/10/2017 BUN 18 08/10/2017 Creatinine 0.63 08/10/2017 Sodium 137 08/10/2017 Potassium 4.3 08/10/2017 Chloride 94 08/10/2017 CO2 28 08/10/2017 Protein, Total 7.3 07/20/2017 Albumin 4.3 07/20/2017 Calcium 9.8 08/10/2017 Alkaline Phosphatase 173 07/20/2017 Bilirubin, Total 0.4 07/20/2017 AST 17 07/20/2017 ALT 15 07/20/2017 eGFR > 60 mL/min/1.73m2 (per BMP on 08/10/17) Estimated CrCL 157.9 mL/min (calculated using Ht 155 cm, adjusted Wt 102 kg, sCr 0.63 mg/dL, using [place]) Last Lipid Panel Lab Results Component Value Date CHOL 174 07/20/2017 Lab Results Component Value Date HDL 42 07/20/2017 Lab Results Component Value Date LDL 92 07/20/2017 Lab Results Component Value Date TG 199 07/20/2017 10-year ASCVD risk: 7% Albumin/Creat Ratio (mg/g) Date Value 02/24/2011 3 PHARMACOTHERAPY ASSESSMENT/PLAN: 1. Type 2 diabetes mellitus without complication, unspecified whether group home insulin use (HCC) - ICD9: 250.00, ICD10: E11.9 A1c goal <7%; patient at goal (6.8% on 10/20/17); majority of patient-reported SMBGs are within goal range of FBG 80-130 and PPG <180; not experiencing episodes of hypoglycemia and tolerating current regimen well; patient making lifestyle modifications through diet and exercise to better control DM - also in process of scheduling bariatric surgery; patient self-stopped glimepiride and sugars are still within goal range so will remove glimepiride from medication list - patient is hopeful to eventually get of linagliptin as well; not on metformin 2/2 GI distress; renal fxn and LFTs WNL and appropriate for continued therapy - CONTINUE insulin glargine 30 units daily and linagliptin 5mg daily Patient indicated for moderate-intensity statin given hx DM, age 40-75 yo, and ASCVD risk <7.5%; explained to patient how statins are for protecting heart from cardiovascular disease and explained the potential side effects; patient not currently on any statin but is willing to start; LFTs are WNL and appropriate for initiating statin therapy; also on low-dose aspirin and tolerating well - INITIATE atorvastatin 20mg daily Patient has not had urine albumin/creatinine ratio updated since 2011; will order lab to see if patient needs to be on an FAMILIA inhibitor for kidney protection (note, patient has reported allergy to quinapril, rxn dizziness) Patient is scheduled to see PCP on 11/08/17. Patient is scheduled for PharmD f/u telephonic appt on 12/26. Patient verbalized understanding of instructions. Viviana Pope PharmD, [facility] Primary Care Clinical Pharmacist [facility] PROGRESS Observed: 10/24/2017 Status: COMPLETED Source: [facility] 11:30 AM [facility] REPOSITORY HNO ID: [id number] Author: Arnav Benedict (Pharmacist) Service: (none) Author Type: Pharmacist Type: Progress Notes Filed: 10/24/2017 2:30 PM Note Text: Patient interviewed and examined with PharmD. Doll elements of history confirmed during office visit. The progress note reflects my input and comments. ? Arnav Benedict PharmD, [facility] Primary Care Clinical Pharmacist [facility] CNOV Observed: 10/24/2017 Status: COMPLETED Source: [facility] 11:30 AM [facility] REPOSITORY Office Visit (PHMEWO) KATHLEEN KHAN V ([id number]) 1960 F Date Time Provider Department 10/24/17 11:30 AM JAK (PHARMACIST)ARNAV During your visit today, we recorded the following information about you: RADHAMES ROCK 10/24/2017 2:07 PM Signed Patient consents to pharmacy collaborative practice agreement. TELEPHONIC APPOINTMENT REASON FOR CONSULT: DM? GOALS: A1c <?7% CONSULTING PROVIDER: Dr. Herbert?? Date of Consult: 06/2017 Kathleen Phillips Bill is a 57 year old female was last seen in [facility] by PCP, Dr. Vincent Herbert MD on 10/20/17 - was started on clindamycin for cellulitis on buttock. Subjective: Patient is presenting today for f/u pharmacotherapy management appointment for diabetes. At last PharmD visit (telephonic appt) on 09/24/17, glimepiride dose was decreased from 4mg to 2mg daily. INTERIM HISTORY: Reports being recently hospitalized - just got home yesterday Went to hospital on Sunday this week - for cellulitis Now taking cephalexin 500mg q8h x 5 days Denies other medication changes during hospitalization Started procedure to get gastric bypass; surgery not yet scheduled States she is no longer on indomethacin - now on nabumetone (EPIC list already updated) Claims DM is going well Did get some steroids in hospital and sugars are still slightly elevated, but coming back down Lowest BG recently is 80, nothing less than 70 mg/dL Patient interested in getting off linagliptin Past DM medications: Metformin IR and ER - GI intolerance (had been on it for years and tolerated it well but then it suddenly it started causing diarrhea; has tried getting back on metformin about 3 times since then) Current DM Medications: Insulin glargine (Basaglar) 30 units QHS Linagliptin 5mg QAM Glimepiride 2mg QAM (hasn't been taking because BGs went <100, had some <80; stopped ~2-3 weeks ago) ? Current HTN Medications: Furosemide 20mg once daily Spironolactone 25mg once daily Preventative Medications: ? On FAMILIA/ARB: No ? On Statin: No ? On ASA: Yes ROS: ? Patient denies CP, SOB, ARAIZA, blurred vision, dizziness or lightheadedness ? Patient denies symptoms of hypoglycemia (sweating, anxiety, palpitations, hunger, and tremor) ? Patient denies symptoms of hyperglycemia (polyuria, polydipsia, polyphagia) ? Patient denies potential medication adverse effects DIET/EXERCISE/SOCIAL Hx: ? Watching carbs: eating less pasta and potatoes; not eating bread ? Doing more exercise - walking more; doing some arm and leg exercises with thera-band (resistance training) MEDICATIONS: ? Pill bottles are not present. ? Adherence: denies missed doses. ? Pharmacy: [facility] ? Rx coverage: [employer] ? Affordability: no isues ? Diabetes supplies: [facility] brand ? Organization System: none ACTIVE PROBLEM LIST Anxiety State Essential Hypertension, Benign ABNL GLANDULAR PAP SMEAR CERVIX HYPERPROLACTINEMIA Irregular Menstrual Cycle Esophageal Reflux Diaphragmatic Hernia Without Mention of Obstruction Or Gangrene Morbid Obesity ([facility]) Obstructive Sleep Apnea Svt (Supraventricular Tachycardia) ([facility]) Congestive Heart Failure ([facility]) Spondylolisthesis Lumbar Facet Arthropathy Ddd (Degenerative Disc Disease), Lumbar Ddd (Degenerative Disc Disease), Cervical Dm (Diabetes Mellitus) ([facility]) Pmb (Postmenopausal Bleeding) Dysthymia Major depressive disorder, recurrent episode, moderate ([facility]) Pain Disorder With Psychological Factors Diffuse Myofascial Pain Syndrome Bilateral Primary Osteoarthritis of Knee Liver Disease Umbilical Hernia Without Obstruction and Without Gangrene PAST MEDICAL HISTORY Diagnosis Date - Abnormal glandular Papanicolaou smear of cervix 05/30/05 ABNL GLANDULAR PAP SMEAR CERVIX - Acute gastritis without mention of hemorrhage - Anxiety state, unspecified - Arrhythmia - Chronic cholecystitis - Chronic obstructive pulmonary disease (COPD) ([facility]) - Congestive heart failure ([facility]) 10/03/2011 - Diabetes ([facility]) - diabetes II 2010 - Diaphragmatic hernia without mention of obstruction or gangrene - Dysthymic disorder Depression (non-psychotic) - Esophageal reflux - Essential hypertension, benign - Generalized OA - Localized osteoarthrosis not specified whether primary or secondary, lower leg - Major depressive disorder, recurrent episode - Mucous polyp of cervix 07/19/05 - Other and unspecified anterior pituitary hyperfunction 10/13/05 elevated prolactin level-was normal in 2011 - PMH - PAST MEDICAL HISTORY OF sleep apnea - PMH - PAST MEDICAL HISTORY OF sleep apnea - SVT (supraventricular tachycardia) (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 ALLERGIES Allergen Reactions - Lyrica [Pregabalin] Anaphylaxis Not sure if accurate. Can take gabapentin. Patient is unsure of reaction. - Accupril [Quinapril* Intolerance dizziness - Amlodipine Swelling Leg edema - Atenolol Swelling - Effexor [Venlafaxin* swelling high blood pressure - Januvia [Sitaglipti* GI Upset, Other: See Comments Patient states she couldn't eat - Metoprolol Swelling - Mobic [Meloxicam] GI Upset - Prozac [Fluoxetine * Intolerance tremor - Risperidone Mental Status Change - Seroquel [Quetiapin* hypertension,swelling - Vancomycin Itching, Other: See Comments red all over - Vioxx [Rofecoxib] GI Upset - Wellbutrin [Bupropi* Intolerance nightmares Medication List Medication Directions Comments Action/Plan ARIPiprazole (ABILIFY) 10 mg tablet Take 1 tablet by mouth once daily. aspirin, enteric coated (ECOTRIN LOW STRENGTH) 81 mg EC tablet Take 1 tablet by mouth once daily. baclofen (LIORESAL) 10 mg tablet Take 1 tablet by mouth twice daily. blood sugar diagnostic (BLOOD GLUCOSE TEST) test strip Test blood sugar(s) 2 times daily. Dx: Type 2 DM - Controlled E11.9 Insulin: No Blood-Glucose Meter monitoring kit Glucose Meter of Choice - Kit - Dx: Type 2 DM - Controlled E11.9 Use twice daily as directed clindamycin (CLEOCIN) 150 mg capsule Take 1 capsule by mouth four times daily. Discontinued; switched to cephalexin DULoxetine (CYMBALTA) 60 mg capsule Take 1 capsule by mouth once daily. furosemide (LASIX) 20 mg tablet Take 1 tablet by mouth once daily. gabapentin (NEURONTIN) 300 mg capsule Take 1 capsule by mouth twice daily for 90 days. glimepiride (AMARYL) 2 mg tablet Take 1 tablet by mouth once daily. Not taking HYDROcodone-acetaminophen (NORCO) 5-325 mg per tablet TAKE ONE TABLET TWICE DAILY Discontinued: 10/17/2017 4:45 PM insulin glargine (BASAGLAR KWIKPEN U-100 INSULIN) 100 unit/mL (3 mL) inpn Inject 30 Units subcutaneously daily at bedtime. taking Insulin [place], Disposable, (BD ULTRA-FINE MADI PEN NEEDLE) 32 gauge x 5/32 ndle Use one needle for each dose. 1/day. lancets (TRUEPLUS LANCETS) 30 gauge misc Test twice daily Dx: 250.02 linagliptin (TRADJENTA) 5 mg tab Take 1 tablet by mouth once daily. taking nabumetone (RELAFEN) 500 mg tablet Take 1 tablet by mouth once daily. TAKE WITH FOOD nitroglycerin sublingual (NITROQUICK) 0.4 mg SL tablet Dissolve 1 tablet under the tongue as needed. FOR CHEST PAIN. IF NO RELIEF CALL 911 nystatin (MYCOSTATIN) cream Apply 1 application to affected area twice daily. polyethylene glycol 3350 (MIRALAX, GLYCOLAX) 17 gram/dose powder Take 17 g by mouth once daily. potassium chloride ER (K-DUR, KLOR-CON) 10 mEq tablet Take 1 tablet by mouth once daily. primidone (MYSOLINE) 50 mg tablet TAKE ONE TABLET ONCE DAILY AT BEDTIME ranitidine (ZANTAC) 150 mg tablet Take 1 tablet by mouth twice daily. spironolactone (ALDACTONE) 25 mg tablet Take 1 tablet by mouth once daily. traZODone (DESYREL) 50 mg tablet Take 0.5 tablets by mouth daily at bedtime. TRUETEST TEST STRIPS test strip TEST twice a day GLYCEMIC CONTROL: ? Glucometer present at visit: No ? SMBG?s: Date Fasting AM 2 hr PP Before Lunch 2 hr PP Before Dinner 10/24 141 10/23 198 (claims steroid effect) 10/20 116 10/19 116 124 10/18 125 142 10/17 124 145 10/16 124 141 10/15 134 130 10/14 120 124 10/13 141 128 10/11 143 123 ? Hypoglycemia: none ? How corrected: n/a Objective: VITALS: n/a (telephonic appt) Last 3 Encounter BP Readings: Date: BP: 10/20/2017 132/80 09/17/2017 130/82 09/14/2017 124/76 Wt: 182 kg (401 lb 3.2 oz) BMI: 75.81 kg/(m2) LABS Lab Results Component Value Date HBA1C 6.8 10/20/2017 HBA1C 7.8 07/20/2017 HBA1C 6.7 07/24/2016 CMP: Glucose 249 08/10/2017 BUN 18 08/10/2017 Creatinine 0.63 08/10/2017 Sodium 137 08/10/2017 Potassium 4.3 08/10/2017 Chloride 94 08/10/2017 CO2 28 08/10/2017 Protein, Total 7.3 07/20/2017 Albumin 4.3 07/20/2017 Calcium 9.8 08/10/2017 Alkaline Phosphatase 173 07/20/2017 Bilirubin, Total 0.4 07/20/2017 AST 17 07/20/2017 ALT 15 07/20/2017 eGFR > 60 mL/min/1.73m2 (per BMP on 08/10/17) Estimated CrCL 157.9 mL/min (calculated using Ht 155 cm, adjusted Wt 102 kg, sCr 0.63 mg/dL, using [place]) Last Lipid Panel Lab Results Component Value Date CHOL 174 07/20/2017 Lab Results Component Value Date HDL 42 07/20/2017 Lab Results Component Value Date LDL 92 07/20/2017 Lab Results Component Value Date TG 199 07/20/2017 10-year ASCVD risk: 7% Albumin/Creat Ratio (mg/g) Date Value 02/24/2011 3 PHARMACOTHERAPY ASSESSMENT/PLAN: 1. Type 2 diabetes mellitus without complication, unspecified whether group home insulin use (HCC) - ICD9: 250.00, ICD10: E11.9 A1c goal <7%; patient at goal (6.8% on 10/20/17); majority of patient-reported SMBGs are within goal range of FBG 80-130 and PPG <180; not experiencing episodes of hypoglycemia and tolerating current regimen well; patient making lifestyle modifications through diet and exercise to better control DM - also in process of scheduling bariatric surgery; patient self-stopped glimepiride and sugars are still within goal range so will remove glimepiride from medication list - patient is hopeful to eventually get of linagliptin as well; not on metformin 2/2 GI distress; renal fxn and LFTs WNL and appropriate for continued therapy - CONTINUE insulin glargine 30 units daily and linagliptin 5mg daily Patient indicated for moderate-intensity statin given hx DM, age 40-75 yo, and ASCVD risk <7.5%; explained to patient how statins are for protecting heart from cardiovascular disease and explained the potential side effects; patient not currently on any statin but is willing to start; LFTs are WNL and appropriate for initiating statin therapy; also on low-dose aspirin and tolerating well - INITIATE atorvastatin 20mg daily Patient has not had urine albumin/creatinine ratio updated since 2011; will order lab to see if patient needs to be on an FAMILIA inhibitor for kidney protection (note, patient has reported allergy to quinapril, rxn dizziness) Patient is scheduled to see PCP on 11/08/17. Patient is scheduled for PharmD f/u telephonic appt on 12/26. Patient verbalized understanding of instructions. Viviana Pope, Dave, [facility] Primary Care Clinical Pharmacist [place] RADHAMES VERDIN 10/24/2017 2:30 PM Signed Patient interviewed and examined with PharmD. Doll elements of history confirmed during office visit. The progress note reflects my input and comments. ? Arnav Benedict PharmD, [facility] Primary Care Clinical Pharmacist [facility] Referring Provider: VINCENT HERBERT [[id number]] Allergies As of Date: 10/24/2017 Noted Allergy Reaction LYRICA (PREGABALIN) 08/05/2012 10 - Anaphylaxis Comments: Not sure if accurate. Can take gabapentin. Patient is unsure of reaction. ACCUPRIL (QUINAPRIL HCL) 08/12/2005 5 - Intolerance Comments: dizziness AMLODIPINE 04/24/2008 7 - Swelling Comments: Leg edema ATENOLOL 09/29/2010 7 - Swelling EFFEXOR (VENLAFAXINE HCL) 09/22/2005 Comments: swelling high blood pressure JANUVIA (SITAGLIPTIN) 09/21/2011 8 - GI Upset 14 - Other: See Comments Comments: Patient states she couldn't eat METOPROLOL 09/21/2009 7 - Swelling MOBIC (MELOXICAM) 08/12/2005 8 - GI Upset PROZAC (FLUOXETINE HCL) 08/12/2005 5 - Intolerance Comments: tremor RISPERIDONE 12/22/2009 1 - Mental Status Change SEROQUEL (QUETIAPINE FUMARATE) 10/05/2006 Comments: hypertension,swelling VANCOMYCIN 08/10/2017 9 - Itching 14 - Other: See Comments Comments: red all over VIOXX (ROFECOXIB) 08/12/2005 8 - GI Upset WELLBUTRIN (BUPROPION HCL) 08/12/2005 5 - Intolerance Comments: nightmares Date Reviewed: 09/17/2017 Reviewed by: Kate Brunner LPN - Fully Assessed Reason for Visit: Allied Health Visit [5] Cmt: DM f/u Primary Visit Diagnosis:Type 2 diabetes mellitus without complication, unspecified whether computer terminal operator insulin use (HCC) [E11.9] Order(s):atorvastatin (LIPITOR) 20 mg tabletTake 1 tablet by mouth once daily.Disp: 30 tabletRfl: 11 ALBUMIN/CREAT RATIO RND UR [SQUACR] Order #: [id number] FUTURE Prescriptions as of 10/24/2017 Sig: CEPHALEXIN 500 MG CAPSULE Take 500 mg by mouth three ti* ATORVASTATIN 20 MG TABLET Take 1 tablet by mouth once d* NABUMETONE 500 MG TABLET Take 1 tablet by mouth once d* GABAPENTIN 300 MG CAPSULE Take 1 capsule by mouth twice* BLOOD-GLUCOSE METER KIT Glucose Meter of Choice - Kit* INSULIN GLARGINE (U-100) 100 * Inject 30 Units subcutaneousl* NYSTATIN 100,000 UNIT/GRAM TO* Apply 1 application to affect* BACLOFEN 10 MG TABLET Take 1 tablet by mouth twice * LINAGLIPTIN 5 MG TABLET Take 1 tablet by mouth once d* SPIRONOLACTONE 25 MG TABLET Take 1 tablet by mouth once d* RANITIDINE 150 MG TABLET Take 1 tablet by mouth twice * FUROSEMIDE 20 MG TABLET Take 1 tablet by mouth once d* DULOXETINE 60 MG CAPSULE,JODI* Take 1 capsule by mouth once * PRIMIDONE 50 MG TABLET TAKE ONE TABLET ONCE DAILY AT* PEN NEEDLE, DIABETIC 32 GAUGE* Use one needle for each dose.* HYDROCODONE 5 MG-ACETAMINOPHE* TAKE ONE TABLET TWICE DAILY BLOOD SUGAR DIAGNOSTIC STRIPS Test blood sugar(s) 2 times d* TRUETEST TEST STRIPS TEST twice a day LANCETS 30 GAUGE Test twice daily Dx: 250.02 TRAZODONE 50 MG TABLET Take 0.5 tablets by mouth padmini* ARIPIPRAZOLE 10 MG TABLET Take 1 tablet by mouth once d* POTASSIUM CHLORIDE ER 10 MEQ * Take 1 tablet by mouth once d* NITROGLYCERIN 0.4 MG SUBLINGU* Dissolve 1 tablet under the t* POLYETHYLENE GLYCOL 3350 17 G* Take 17 g by mouth once daily. ASPIRIN 81 MG TABLET,DELAYED * Take 1 tablet by mouth once d* Medication notes this encounter CLINDAMYCIN HCL 150 MG CAPSULE >> VIVIANA POPE, PHARMACIST 10/24/2017 1:42 PM switched to cephalexin by hospitalist Problem List As Of Date 10/24/2017 Noted Resolved Major depressive disorder, recurrent episode, u*INVALID FOR*11/24/2014 Priority: A More... Anxiety state [F41.1] INVALID FOR* BENIGN HYPERTENSION [I10] INVALID FOR* OSTEOARTHROS NOS-UNSPEC [M19.90] INVALID FOR*02/07/2007 ABNL GLANDULAR PAP SMEAR CERVIX [R87.619] INVALID FOR* HYPERPROLACTINEMIA [E22.9] INVALID FOR* IRREGULAR MENSTRUATION [N92.6] INVALID FOR* ESOPHAGEAL REFLUX [K21.9] INVALID FOR* ACUTE GASTRITIS W/O HEMORRHAGE [K29.00] INVALID FOR*02/07/2007 DIAPHRAGMATIC HERNIA [K44.9] INVALID FOR* Unspecified gastritis and gastroduodenitis with*INVALID FOR*07/24/2016 Localized osteoarthrosis not specified whether *INVALID FOR*07/24/2016 Priority: A More... Pain in joint, site unspecified [M25.50] INVALID FOR*07/24/2016 Routine general medical examination at a health*INVALID FOR*11/29/2011 Class: Chronic More... Routine gynecological examination [Z01.419] INVALID FOR*11/29/2011 Class: Chronic More... More... Morbid obesity [E66.01] INVALID FOR* Priority: Very Severe Hyperprolactinemia [E22.1] INVALID FOR*01/30/2012 Obstructive sleep apnea [G47.33] INVALID FOR* Priority: Severe More... Medication side effects [T88.7XXA] INVALID FOR*08/10/2017 SVT (supraventricular tachycardia) [I47.1] Priority: A Type II or unspecified type diabetes mellitus w*INVALID FOR*04/10/2012 Priority: Moderate More... Congestive heart failure [I50.9] INVALID FOR* Spondylolisthesis [M43.10] INVALID FOR* Lumbar facet arthropathy [M47.816] INVALID FOR* DDD (degenerative disc disease), lumbar [M51.36]INVALID FOR* Diabetes mellitus [E11.9] INVALID FOR*11/24/2014 DDD (degenerative disc disease), cervical [M50.*INVALID FOR* DM (diabetes mellitus) (HCC) [E11.9] INVALID FOR* PMB (postmenopausal bleeding) [N95.0] INVALID FOR* Dysthymia [F34.1] INVALID FOR* Major depressive disorder, recurrent episode, m*INVALID FOR* More... Pain disorder with psychological factors [F45.4*INVALID FOR* Diffuse myofascial pain syndrome [M79.1] INVALID FOR* Bilateral primary osteoarthritis of knee [M17.0]INVALID FOR* Obesity, Class III, BMI >= 40 [E66.01] INVALID FOR*10/20/2017 Liver disease [K76.9] INVALID FOR* More... Umbilical hernia without obstruction and withou*INVALID FOR* More... Prescriptions ordered this encounter Disp Refills Start End ATORVASTATIN 20 MG TABLET 30 t* 11 10/24/2017 Route: ORAL Sig: Take 1 tablet by mouth once daily. Medications Discontinued During This Encounter clindamycin (CLEOCIN) 150 mg capsule 40 c* 0 10/20/2017 10/24/2017 Route: ORAL Sig: Take 1 capsule by mouth four times daily. Patient not taking: Reported on 10/24/2017 Disc: Discontinued by another Health Care Provider glimepiride (AMARYL) 2 mg tablet 30 t* 5 09/24/2017 10/24/2017 Cmt: Dosage decrease Route: ORAL Sig: Take 1 tablet by mouth once daily. Disc: Discontinued by Patient Encounter Status:Closed by JAK (PHARMACIST)ARNAV on 10/24/17 12 LEAD ELECTROCARDIOGRAM Observed: 10/23/2017 Status: F Source: JOSE ALFREDO 1:22 PM [facility] REPOSITORY [facility] Cardiovascular Services [address] [place] [address] 12 Lead EKG 10/21/17 0442 MR#: [id number] Acct: [id number] Name: KATHLEEN KHAN V Rep #: [id number] : 1960 57 From: Zain Jenkins MD Attending Dr: Kerline Yousif Status: ADM IN Ordering Dr: Mikayla Pérez MD Date: 10/21/17 Location: [facility] [place] Sex: F C Admitted: 10/21/17 Test Reason : FEVER Blood Pressure : / mmHG Vent. Rate : 099 BPM Atrial Rate : 099 BPM P-R Int : 144 ms QRS Dur : 080 ms QT Int : 340 ms P-R-T Axes : 053 010 051 degrees QTc Int : 436 ms Normal sinus rhythm Nonspecific T wave abnormality Abnormal ECG Confirmed by ZAIN JENKINS ([id number]), editor index KO ROMERO ([id number]) on 10/23/2017 1:22:15 PM Referred By: ERICK Confirmed By:ZAIN JENKINS 10/23/17 1322 Date Zain Jenkins MD CC: Kerline Yousif; Mikayla Pérez MD; Vincent Herbert MD Signed DISCHARGE SUMMARY Observed: 10/23/2017 Status: F Source: JOSE ALFREDO 12:31 PM [facility] REPOSITORY [facility] Medical Records Department [address] [place] [address] Discharge Summary 10/23/17 1156 MR#: [id number] Acct: [id number] Name: KATHLEEN KHAN V Rep #: [id number] : 1960 57 From: Barbara PAUL PCP: Vincent Herbert MD Status: ADM IN Y Location: MS3 [id number] <Barbara Coffman - Last Filed: 10/23/17 12:01> Discharge Date and Diagnosis Date of Admission: 10/21/17 Date of Discharge: 10/23/17 - Primary Discharge Diagnosis Active and Suspected Problems 1. Acute sepsis secondary to acute right posterior thigh and right posterior buttock cellulitis, recurrent 2. Hypotension, secondary to #1-resolved. - Secondary Discharge Diagnosis Chronic Problems Anxiety and depression (Chronic) Heart failure (Chronic) Chronic back pain (Chronic) History of pneumonia (Chronic) JEREMÍAS (obstructive sleep apnea) (Chronic) Lumbosacral neuritis (Chronic) Esophageal reflux (Chronic) Morbid obesity (Chronic) Hypertension (Chronic) Hospital Course and Treatment Imaging Results: Diagnostic Data Chest X-Ray 10/21/17 04:33 IMPRESSION: Borderline cardiomegaly and mild pulmonary congestion. Electronically Signed: Arnav Romero MD at 5:28 EDT , Service support , Dr. Reilly- ID Operations: None Procedures: None Summary of Care Provided: The patient is a 57 year old F admitted 10/21/17 due to skin redness, fever. 1. Acute sepsis secondary to acute right posterior thigh and right posterior buttock cellulitis, recurrent-treated with IV Zosyn. ID consulted given continued recurrence of cellulitis without clear etiology. ESR WNL. CRP elevated, 127. Infectious disease recommending Keflex 500 mg 3 times daily for 5 more days at discharge. Redness and erythema significantly improved. Patient has remained afebrile. ID recommending hibiclens washes weekly to prevent recurrence. Follow with primary care physician in 1 week. Follow-up with ID as needed. 2. Hypotension-secondary to #1. Resolved. 3. Chronic suspect diastolic CHF-continue home regimen including aspirin, Lasix, spironolactone. 4. Type 2 diabetes mellitus-continue home regimen. Hemoglobin A1c 7.2%. 5. Hypertension-stable, continue current regimen. 6. Anxiety/depression-continue home regimen. 7. GERD-continue famotidine. 8. JEREMÍAS-continue BiPAP nightly. 9. Morbid obesity-encourage diet and lifestyle modifications. General: Alert, Oriented x3, Cooperative HEENT: Atraumatic, PERRLA, EOMI, Normocephalic Neck: Supple, No JVD, Negative Carotid Bruits Lungs: Clear to auscultation, Normal air movement Cardiovascular: Regular rate, Regular Rhythm, Normal S1, Normal S2, No murmurs Abdomen: Bowel Sounds Present, Soft, Non Tender, Non-Distended, Obese Extremities: No clubbing, No cyanosis, No edema, Capillary Refill Less than 3 Seconds Skin: - - Right posterior thigh and posterior buttock erythema with associated warmth to touch. No abscess or wounds noted. Erythema/warmth improved. Musculoskeletal: No Tenderness to Palpation of Joints or Extremities Neurological: Cranial nerves II-XII grossly intact, Neuro grossly intact Psych/Mental Status: Normal Affect, Appropriate Patient seen exam prior to discharge. Physical assessment as noted above. Patient stable for discharge home with the follow-up her conditions as noted above. This patient was seen by BEVERLY Wilkinson under the supervision of Dr. Yousif. Discharge Diet: 1800 Calorie Control Diet, Carb Control Diet Discharge Activity: Return to Normal Activity Call your doctor if you observe: Fever of 101 or Higher, Shortness of breath, Dizziness, Fainting spells, Chest pain Home Medications: Medications to take at Discharge Aspirin [Adult Low Dose Aspirin EC] 81 mg PO DAILY 12/02/14 Duloxetine HCl 60 mg PO DAILY 12/02/14 Furosemide 20 mg PO DAILY 12/02/14 Linagliptin [Tradjenta] 5 mg PO DAILY 12/02/14 Potassium Chloride [K-Dur] 10 meq PO DAILY 12/02/14 Ranitidine [Zantac] 150 mg PO DAILY 12/02/14 Spironolactone [Aldactone] 25 mg PO DAILY 12/02/14 Baclofen 10 mg PO BID 08/01/17 Gabapentin [Neurontin] 300 mg PO BID 08/01/17 Primidone [Mysoline] 50 mg PO QHS 08/01/17 traZODone [Desyrel] 50 mg PO QHS 08/01/17 Cetirizine HCl [Zyrtec] 10 mg PO DAILY PRN PRN 09/09/17 Glimepiride [Amaryl] 4 mg PO DAILY 09/09/17 Hydrocodone/Acetaminophen [[place] 5-325 Tablet] 1 each PO BID PRN PRN 09/09/17 Indomethacin [Indocin] 25 mg PO BID PRN 09/09/17 Nitroglycerin [Nitrostat] 0.4 mg SL PRN PRN 09/09/17 Aripiprazole [Abilify] 10 mg PO QHS 10/21/17 Insulin Glargine,Hum.rec.anlog [Basaglar Kwikpen U-100] 30 unit SQ QHS 10/21/17 Cephalexin [Keflex] 500 mg PO Q8 #15 cap 10/23/17 Following Prescrptions Were Given to Patient: Cephalexin [Keflex] 500 mg PO Q8 #15 cap Primary Care Physician: Vincent Herbert MD [Primary Care Provider] - Please follow up with your Primary Care Physician in: 1 Week Please Follow Up With: Michele Reilly MD - Infectious disease When: As needed Disposition: Home Minutes spent on discharge:: 35 Patient Condition:: Stable Medical Necessity - Tobacco Use Smoking Status: Former smoker Tobacco Use: Non-smoker Meaningful Use Info Meaningful Use Diagnoses (Choose all that apply): None applicable <Kerline Yousif E - Last Filed: 10/23/17 12:30> Discharge Date and Diagnosis - Secondary Discharge Diagnosis Chronic Problems Anxiety and depression (Chronic) Heart failure (Chronic) Chronic back pain (Chronic) History of pneumonia (Chronic) JEREMÍAS (obstructive sleep apnea) (Chronic) Lumbosacral neuritis (Chronic) Esophageal reflux (Chronic) Morbid obesity (Chronic) Hypertension (Chronic) Hospital Course and Treatment Summary of Care Provided: Hospitalist note: Discharge summary above reviewed and I agree with the above discharge and treatment plan. Patient was admitted for right buttock and right posterior thigh erythema and swelling, diagnosed with acute right posterior thigh and right buttock cellulitis with sepsis. Patient has been having this problem recurrently. She was treated with IV Zosyn. On admission she was found to have findings consistent with sepsis due to the acute cellulitis. Her lactic acid was normal. Her blood pressure was borderline but improved with IV fluids. Her routine blood work was unremarkable except for leukocytosis which resolved. Urine culture revealed no growth. Blood culture was negative up to the time of discharge. Because of the locking of the erythema and swelling of the right buttock and right posterior thigh, there was a concern that she may have allergic reaction. But she has been having recurrent cellulitis of that area. With IV antibiotic therapy, local erythema and swelling of the right buttock and right posterior thigh improved. Patient remained afebrile for more than 48 hours. Patient discharged home in a stable medical condition, discharged on Keflex according to infectious disease recommendations, continued on her home medications, recommended follow-up with PCP in 1 week and follow-up with infectious disease as needed. - Physical Exam General: Alert, Oriented x3, Cooperative, No apparent distress. HEENT: Atraumatic, PERRLA, EOMI. Neck: Supple, No JVD, Negative Carotid Bruits, Trachea Midline, Thyroid Normal. Lungs: Diminished breath sounds bilateral, otherwise clear, No rhonchi, No wheeze, No rales. Cardiovascular: Regular rate, Regular Rhythm, Normal S1, Normal S2, PMI Normal. Abdomen: Bowel Sounds Present, Soft, Non Tender, Non-Distended, No Hepato-splenomegaly, morbidly obese. Extremities: No clubbing, No cyanosis, No edema Skin: Erythema and mild swelling of right buttock and right posterior thigh improved, no evidence of open wounds or drainage. Neurological: Neuro grossly intact Vital Signs are stable. This note was generated with ProBinder dictation software. It may contain incorrect words, spelling, and punctuation that were not noted in checking the note before signing. Disposition: Home Minutes spent on discharge:: 32 Patient Condition:: Stable Meaningful Use Info Meaningful Use Diagnoses (Choose all that apply): None applicable Code Visit Inpatient E AND M: 53594 Disch Hosp 10/23/17 1201 <Electronically signed by Barbara PAUL> Date Barbara PAUL 10/23/17 1231<Electronically signed by Kerline Yousif MD> Cosigner Signature (if applicable): Date Kerline Yousif MD CC: BEVERLY Coffman; Kerline Yousif; Michele Reilly MD; Vincent Herbert MD Signed DISCHARGE INSTRUCTION Observed: 10/23/2017 Status: F Source: [place] 11:56 AM [facility] REPOSITORY [facility] Medical Records Department [address] [place] [address] Instructions for Home/Discharge Instructions 10/23/17 1154 MR#: [id number] Acct: [id number] Name: KATHLEEN KHAN V Rep #: [id number] : 1960 57 From: Barbara PAUL PCP: Vincent Herbert MD Status: ADM IN - Discharge Diagnoses Current Active Problems: Current Active and Chronic Problems Sepsis (Acute) Anxiety and depression (Chronic) Heart failure (Chronic) Diabetes mellitus, type II (Acute) Chronic back pain (Chronic) You will use the following diet at home:: Calorie/Carbohydrate Controlled (specify 1200, 1400, etc) Discharge Activity: Return to Normal Activity Call your doctor if you observe: Fever of 101 or Higher, Shortness of breath, Dizziness, Fainting spells, Chest pain Additional Instructions: Complete hibiclens washes weekly to prevent recurrence of cellulitis. Allergies/Adverse Reactions: Allergies vancomycin Allergy (Verified 10/21/17 04:07) Rash amlodipine Adverse Reaction (Verified 10/21/17 04:07) Unknown atenolol Adverse Reaction (Verified 10/21/17 04:07) Unknown bupropion HCl [From Wellbutrin] Adverse Reaction (Verified 10/21/17 04:07) Unknown fluoxetine HCl [From Prozac] Adverse Reaction (Verified 10/21/17 04:07) Unknown meloxicam [From Mobic] Adverse Reaction (Verified 10/21/17 04:07) Unknown metoprolol Adverse Reaction (Verified 10/21/17 04:07) Unknown pregabalin [From Lyrica] Adverse Reaction (Verified 10/21/17 04:07) Unknown quetiapine fumarate [From Seroquel] Adverse Reaction (Verified 10/21/17 04:07) Unknown quinapril HCl [From Accupril] Adverse Reaction (Verified 10/21/17 04:07) Unknown risperidone Adverse Reaction (Verified 10/21/17 04:07) Unknown rofecoxib [From Vioxx] Adverse Reaction (Verified 10/21/17 04:07) Unknown sitagliptin phosphate [From Januvia] Adverse Reaction (Verified 10/21/17 04:07) Unknown venlafaxine HCl [From Effexor] Adverse Reaction (Verified 10/21/17 04:07) Unknown Medications to take at Discharge Aspirin [Adult Low Dose Aspirin EC] 81 mg PO DAILY 12/02/14 Duloxetine HCl 60 mg PO DAILY 12/02/14 Furosemide 20 mg PO DAILY 12/02/14 Linagliptin [Tradjenta] 5 mg PO DAILY 12/02/14 Potassium Chloride [K-Dur] 10 meq PO DAILY 12/02/14 Ranitidine [Zantac] 150 mg PO DAILY 12/02/14 Spironolactone [Aldactone] 25 mg PO DAILY 12/02/14 Baclofen 10 mg PO BID 08/01/17 Gabapentin [Neurontin] 300 mg PO BID 08/01/17 Primidone [Mysoline] 50 mg PO QHS 08/01/17 traZODone [Desyrel] 50 mg PO QHS 08/01/17 Cetirizine HCl [Zyrtec] 10 mg PO DAILY PRN PRN 09/09/17 Glimepiride [Amaryl] 4 mg PO DAILY 09/09/17 Hydrocodone/Acetaminophen [[place] 5-325 Tablet] 1 each PO BID PRN PRN 09/09/17 Indomethacin [Indocin] 25 mg PO BID PRN 09/09/17 Nitroglycerin [Nitrostat] 0.4 mg SL PRN PRN 09/09/17 Aripiprazole [Abilify] 10 mg PO QHS 10/21/17 Insulin Glargine,Hum.rec.anlog [Basaglar Kwikpen U-100] 30 unit SQ QHS 10/21/17 Cephalexin [Keflex] 500 mg PO Q8 #15 cap 10/23/17 The following prescriptions were given: Cephalexin [Keflex] 500 mg PO Q8 #15 cap Primary Care Physician: Vincent Herbert MD [Primary Care Provider] - Please follow up with your Primary Care Physician in: 1 Week Test Results: Test results from this visit will be discussed in further detail at your follow-up appointment, if applicable. Please Follow Up With: Michele Reilly MD - Infectious disease When: As needed Proposed Discharge Date: 10/23/17 10/23/17 1156 <Electronically signed by Barbara PAUL> Date Barbara PAUL CC: Michele Reilly MD; Vincent Herbert MD CONSULTATION Observed: 10/23/2017 Status: F Source: [place] 11:06 AM [facility] REPOSITORY [facility] Medical Records Department [address] [place] [address] Consultation 10/23/17 1101 MR#: [id number] Acct: [id number] Name: KATHLEEN KHAN V Rep #: [id number] : 1960 57 From: Michele Reilly MD PCP: Vincent Herbert MD Status: ADM IN Location: [facility] [place] LQ588-1 Problem List (1) Cellulitis Status: Acute Qualifiers: Laterality: unspecified laterality Reason for Consult: cellulitis Consulted by: Dr. Yousif History of Present Illness: The patient is a 57 year old F with DM and recurrent cellulitis who presented 10/21 with one day history of R thigh/buttock redness, pain, swelling, and warmth. No known inciting events. Has had 4 episodes of this in past few months. No drainage. No pets at home. Associated with fever. Started on clinda without improvement, came to ED, had fever to 102.1, wbc 12. Admitted on zosyn, now feeling much better. Redness nearly resolved. Full ROS Performed and neg except as noted above. - Medical History Past Medical History (Chronic Problems): Chronic Problems Anxiety and depression (Chronic) Heart failure (Chronic) Chronic back pain (Chronic) History of pneumonia (Chronic) JEREMÍAS (obstructive sleep apnea) (Chronic) Lumbosacral neuritis (Chronic) Esophageal reflux (Chronic) Morbid obesity (Chronic) Hypertension (Chronic) Allergies/Adverse Reactions: Allergies vancomycin Allergy (Verified 10/21/17 04:07) Rash amlodipine Adverse Reaction (Verified 10/21/17 04:07) Unknown atenolol Adverse Reaction (Verified 10/21/17 04:07) Unknown bupropion HCl [From Wellbutrin] Adverse Reaction (Verified 10/21/17 04:07) Unknown fluoxetine HCl [From Prozac] Adverse Reaction (Verified 10/21/17 04:07) Unknown meloxicam [From Mobic] Adverse Reaction (Verified 10/21/17 04:07) Unknown metoprolol Adverse Reaction (Verified 10/21/17 04:07) Unknown pregabalin [From Lyrica] Adverse Reaction (Verified 10/21/17 04:07) Unknown quetiapine fumarate [From Seroquel] Adverse Reaction (Verified 10/21/17 04:07) Unknown quinapril HCl [From Accupril] Adverse Reaction (Verified 10/21/17 04:07) Unknown risperidone Adverse Reaction (Verified 10/21/17 04:07) Unknown rofecoxib [From Vioxx] Adverse Reaction (Verified 10/21/17 04:07) Unknown sitagliptin phosphate [From Januvia] Adverse Reaction (Verified 10/21/17 04:07) Unknown venlafaxine HCl [From Effexor] Adverse Reaction (Verified 10/21/17 04:07) Unknown Home Medications: Ambulatory Orders Medication Instructions Recorded - Social History SMOKING STATUS:: Former smoker Vital Signs Temp Pulse Resp BP Pulse Ox 97.8 F 55 L 18 131/73 H 100 10/23/17 07:57 10/23/17 07:57 10/23/17 07:57 10/23/17 07:57 10/23/17 07:57 Oxygen Delivery Method Room Air Weight: 182.299 kg Body Mass Index (BMI) 74.9 reviewed, wbc 12 now down to 6 - Other Studies Radiology: [] reviewed Other Studies: [] Route of nutrition/ use of supplements: [] Nutritional Intake: [] IV Site: [] Bialey Catheter: [] - Physical Exam General: Alert, Oriented x3, Cooperative, No apparent distress HEENT: Atraumatic, PERRLA, EOMI Neck: Supple, No Nodes Lungs: Clear to auscultation, Normal air movement Cardiovascular: Regular rate, Regular Rhythm, No murmurs Abdomen: Soft, Non-Distended, Obese Skin: - - R lateral thigh with fading redness, minimal induration/warmth IV Site: Peripheral, without redness Musculoskeletal: No Tenderness to Palpation of Joints or Extremities Neurological: Cranial nerves II-XII grossly intact - Assessment/Plan Antibiotics: [] Assessment/Plan: [] Active and Suspected Problems Sepsis (Acute) Diabetes mellitus, type II (Acute) Sepsis due to R thigh cellulitis - much improved. Fever and leukocytosis resolved. Ok for d/c home on po keflex 500mg tid for 5 more days. Gave her information and instructions about using hibiclens washes weekly to help prevent further recurrence. Will follow, thank you, ID follow prn. D/w primary team. 10/23/17 1106 <Electronically signed by Michele Reilly MD> Date Michele Reilly MD Cosigner Signature (if applicable): Date CC: Michele Reilly MD; Vincent Herbert MD Signed BEDSIDE GLUCOSE Collected: 10/23/2017 Status: F Source: [place] 10:17 AM [facility] REPOSITORY TYPE CODE TESTS RESULT OUT OF REFERENCE UNITS RANGE LAB L501.080 70-110 mg/dL High BEDSIDE GLU 231 Result Comment: MANAGEMENT OF PATIENT CARE PER NURSING PROTOCOL Performed By: #### L501.080 #### [facility] Point of Care [address] [place] [address] BEDSIDE GLUCOSE Collected: 10/23/2017 Status: F Source: [place] 6:48 AM [facility] REPOSITORY TYPE CODE TESTS RESULT OUT OF REFERENCE UNITS RANGE LAB L501.080 70-110 mg/dL High BEDSIDE GLU 241 Result Comment: MANAGEMENT OF PATIENT CARE PER NURSING PROTOCOL Performed By: #### L501.080 #### [facility] Point of Care [address] [place] [address] BEDSIDE GLUCOSE Collected: 10/23/2017 Status: F Source: [place] 3:25 AM [facility] REPOSITORY TYPE CODE TESTS RESULT OUT OF REFERENCE UNITS RANGE LAB L501.080 70-110 mg/dL High BEDSIDE GLU 264 Result Comment: MANAGEMENT OF PATIENT CARE PER NURSING PROTOCOL Performed By: #### L501.080 #### [facility] Point of Care [address] [place] [address] BEDSIDE GLUCOSE Collected: 10/22/2017 Status: F Source: [place] 10:30 PM [facility] REPOSITORY TYPE CODE TESTS RESULT OUT OF REFERENCE UNITS RANGE LAB L501.080 70-110 mg/dL High BEDSIDE GLU 266 Result Comment: MANAGEMENT OF PATIENT CARE PER NURSING PROTOCOL Performed By: #### L501.080 #### [facility] Point of Care [address] [place] [address] BEDSIDE GLUCOSE Collected: 10/22/2017 Status: F Source: [place] 4:12 PM [facility] REPOSITORY TYPE CODE TESTS RESULT OUT OF REFERENCE UNITS RANGE LAB L501.080 70-110 mg/dL High BEDSIDE GLU 205 Result Comment: MANAGEMENT OF PATIENT CARE PER NURSING PROTOCOL Performed By: #### L501.080 #### [facility] Point of Care [address] [place] [address] BEDSIDE GLUCOSE Collected: 10/22/2017 Status: F Source: [place] 10:56 AM [facility] REPOSITORY TYPE CODE TESTS RESULT OUT OF REFERENCE UNITS RANGE LAB L501.080 70-110 mg/dL High BEDSIDE GLU 170 Result Comment: MANAGEMENT OF PATIENT CARE PER NURSING PROTOCOL Performed By: #### L501.080 #### [facility] Point of Care [address] [place] [address] BEDSIDE GLUCOSE Collected: 10/22/2017 Status: F Source: [place] 8:25 AM [facility] REPOSITORY TYPE CODE TESTS RESULT OUT OF REFERENCE UNITS RANGE LAB L501.080 70-110 mg/dL High BEDSIDE GLU 131 Result Comment: MANAGEMENT OF PATIENT CARE PER NURSING PROTOCOL Performed By: #### L501.080 #### [facility] Point of Care [address] [place] [address] BEDSIDE GLUCOSE Collected: 10/22/2017 Status: F Source: [place] 6:41 AM [facility] REPOSITORY TYPE CODE TESTS RESULT OUT OF REFERENCE UNITS RANGE LAB L501.080 70-110 mg/dL High BEDSIDE GLU 150 Result Comment: MANAGEMENT OF PATIENT CARE PER NURSING PROTOCOL Performed By: #### L501.080 #### [facility] Point of Care [address] [place] [address] CBC W/DIFF, AUTOMATED Collected: 10/22/2017 Status: F Source: [place] 5:05 AM [facility] REPOSITORY TYPE CODE TESTS RESULT OUT OF RANGE REFERENCE UNITS LAB L100.1000 4.4-11.0 K/mm3 Normal WBC 5.9 LAB L100.1200 4.2-5.4 M/mm3 Low RBC 4.01 LAB L100.1300 12.0-15.0 g/dl Low HGB 11.3 LAB L100.1400 37-47 % Low HCT 35.4 LAB L100.1500 81-99 fL Normal MCV 88.3 LAB L100.1600 27.0-32.0 pg Normal MCH 28.2 LAB L100.1700 32-36 g/gl Low MCHC 31.9 LAB L100.1810 11.6-14.6 % Normal RDW CV 13.9 LAB L100.1820 35.1-43.9 fl High RDW SD 44.7 LAB L100.1900 150-450 K/mm3 Normal PLT 169 LAB L100.2000 6.2-12.0 fl Normal MPV 11.5 LAB L100.2100 47-70 % High NEUT% 70.6 LAB L100.2200 19-41 % Low LY% 17.6 LAB L100.2300 0-10 % Normal MONO% 9.7 LAB L100.2400 0-5 % Normal EO% 1.9 LAB L100.2500 0-1 % Normal BASO% 0.0 LAB L100.2550 0.0-0.9 % Normal IM GRAN % 0.200 Result Comment: IG% - Immature Granulocytes (promyelocytes, myelocytes and metamyelocytes) > 1% indicates that a LEFT SHIFT is Present. LAB L100.2620 2.0-7.7 X10 3/uL Normal Absolute Neut 4.2 LAB L100.2720 0.83-4.51 X10 3/ul Normal Absolute Lymph 1.04 Performed By: #### L100.0100 #### [facility] [address] [place], [address] BASIC METABOLIC Collected: 10/22/2017 Status: F Source: [place] PROFILE (BMP) 5:05 AM [facility] REPOSITORY TYPE CODE TESTS RESULT OUT OF RANGE REFERENCE UNITS LAB L501.0100 74-106 mg/dL High GLU 144 Result Comment: Fasting Glucose result greater than or equal to 126 mg/dL suggests DIABETES MELLITUS per A.D.A. criteria. Please note revised GLUCOSE reference range effective 2017. LAB L501.1000 7-18 mg/dL Normal BUN 16 LAB L501.1100 0.55-1.02 mg/dL Normal CREAT,SERUM 0.57 Result Comment: The validity of the calculated GFR AND GFRAA in patients over 70 years has not been determined. Clinical correlation is essential. LAB L501.1110 >60 mL/min Normal EST GFR 115 Result Comment: Non- GFR Calc LAB L501.1115 >60 mL/min Normal EST GFR - AA 139 Result Comment: GFR Calc LAB L501.1255 ml/min Normal Estimated CRCL 82.17 LAB L501.1300 10-20 RATIO High BUN/CRE 27.9 LAB L501.2200 8.5-10 mg/dL Low .1 CA 8.2 LAB L501.5300 136-14 mmol/L Normal 5 NA 143 LAB L501.5600 3.5-5. mmol/L Normal 1 K 4.1 LAB L501.5900 98-107 mmol/L Normal CL 107 LAB L501.6100 21.0-3 mmol/L Normal 2.0 CO2 28.0 LAB L501.6200 5-15 Normal GAP 8 Performed By: #### L500.2500 #### [facility] [address] [place], [address] BEDSIDE GLUCOSE Collected: 10/21/2017 Status: F Source: [place] 9:05 PM [facility] REPOSITORY TYPE CODE TESTS RESULT OUT OF REFERENCE UNITS RANGE LAB L501.080 70-110 mg/dL High BEDSIDE GLU 201 Result Comment: MANAGEMENT OF PATIENT CARE PER NURSING PROTOCOL Performed By: #### L501.080 #### [facility] Point of Care [address] [place] [address] BEDSIDE GLUCOSE Collected: 10/21/2017 Status: F Source: [place] 5:14 PM [facility] REPOSITORY TYPE CODE TESTS RESULT OUT OF REFERENCE UNITS RANGE LAB L501.080 70-110 mg/dL High BEDSIDE GLU 119 Result Comment: MANAGEMENT OF PATIENT CARE PER NURSING PROTOCOL Performed By: #### L501.080 #### [facility] Point of Care [address] [place] [address] BEDSIDE GLUCOSE Collected: 10/21/2017 Status: F Source: [place] 1:08 PM [facility] REPOSITORY TYPE CODE TESTS RESULT OUT OF REFERENCE UNITS RANGE LAB L501.080 70-110 mg/dL High BEDSIDE GLU 127 Result Comment: MANAGEMENT OF PATIENT CARE PER NURSING PROTOCOL Performed By: #### L501.080 #### [facility] Point of Care [address] [place] [address] M R STAPH AUREUS Collected: 10/21/2017 Status: F Source: [place] DNA BY PCR 11:30 AM [facility] REPOSITORY Order Comment: Order Date: 10/21/17 Has pt arrived? Y TYPE CODE TESTS RESULT OUT OF RANGE REFERENCE UNITS LAB L8200.1100 Negative Normal MRSA Negative RESULT Performed By: #### L8200.1000 #### [facility] [address] [place] [address]. [facility] [address] EMERGENCY DEPARTMENT Observed: 10/21/2017 Status: F Source: [place] SUMMARY 8:37 AM [facility] REPOSITORY [facility] Medical Records Department [address] [place] [address] Emergency Department Summary 10/21/17 0430 MR#: [id number] Acct: [id number] Name: KATHLEEN KHAN V Rep #: [id number] : 1960 57 From: Mikayla Pérez MD PCP: Vincent Herbert MD Status: ADM IN - ER Visit Summary Date of Service: 10/21/17 Chief Complaint: Right thigh and buttock cellulitis History of Present Illness: The patient is a 57 F with history of recurrent cellulitis and diabetes who presents for 1 day of cellulitis to the right upper thigh and buttocks and fever. Patient states she began having symptoms yesterday morning. Prior to that she had complete resolution of her last round of cellulitis, which it occurred 1 month prior. She completed a 10 day course of oral antibiotics at home after discharge. She is felt well until yesterday morning when she developed fever and returned rash. She has associated nausea, headache, generalized weakness. Denies any other complaints. Physical Examination: Vital signs: Febrile at 102.1, hemodynamically stable, no hypoxia on room air General: well nourished, well developed, morbidly obese, in no distress Skin: warm, moist, flushed, large area of erythema over the right proximal lateral thigh extending to the right buttock HEENT: normocephalic and atraumatic; PERRL, EOMI, moist mucous membranes Cardiovascular: Tachycardic rate and rhythm without murmurs, no peripheral edema, 2+ pulses all distal extremities Respiratory: No increased work of breathing, lungs are clear to auscultation bilaterally, no rales, rhonchi or wheezing Abdominal: Abdomen is soft, nontender with normoactive bowel sounds, no guarding or rebound, no masses MSK: Moves all extremities, no deformities, normal strength Neuro: Awake and alert, oriented 4. No facial droop, sensation and motor function intact and symmetric Test Results: Abnormal Lab Results WBC RBC Hgb Hct MCV MCH Clinical Impression(s) from Imaging Studies Chest X-Ray 10/21/17 04:33 IMPRESSION: Borderline cardiomegaly and mild pulmonary congestion. Electronically Signed: Arnav Romero MD at 5:28 EDT , Service support , Emergency Department Course and Treatment: Patient presents for recurrent cellulitis and is febrile at presentation. Sepsis workup was performed. Patient received Tylenol for her headache and Zofran for nausea. IV fluids were given. Lactate within normal limits. Mild leukocytosis of 12.2. Glucose elevated at 202. EKG showed sinus without ischemic changes. Chest x-ray showed no infiltrate. Patient was started on Zosyn for cellulitis coverage, as she had been on oral clindamycin at home. She was discussed with Dr. Barron for admission for further management of sepsis and right upper thigh/buttock cellulitis, recurrent cellulitis. Treatment Plan: [] Disposition: [] Impression: Sepsis, right thigh and buttock cellulitis This note was generated with ProBinder dictation software. It may contain incorrect words, spelling, and punctuation that were not noted in review of the chart prior to signing ED Disposition - Plan for ED Patient: Disposition: Acute Care Hospital [facility] Chief Complaint: Fever What to do if you have Problems For any increased pain, shortness of breath, bleeding, nausea or vomiting, chest pain, or any unexpected problems, contact your Primary Care Provider. Call [facility] ([phone]) or report to the closest Emergency Room. Call 911 if necessary. 10/21/17 0837 <Electronically signed by Mikayla Pérez MD> Date Mikayla Pérez MD Cosigner Signature (If Indicated): Date CC: Vincent Herbert MD MAGNESIUM Collected: 10/21/2017 Status: F Source: [place] 7:55 AM [facility] REPOSITORY TYPE CODE TESTS RESULT OUT OF RANGE REFERENCE UNITS LAB L501.5200 1.6-2.6 mg/dL Normal MG 2.1 Performed By: #### L501.5200 #### [facility] [address] [place], [place], [address] LACTIC ACID Collected: 10/21/2017 Status: F Source: [place] 7:55 AM [facility] REPOSITORY Order Comment: Comments: 3 hours after initial level if initial lactic >2 Yes/No query for Sepsis Lactate Rule Y TYPE CODE TESTS RESULT OUT OF RANGE REFERENCE UNITS LAB L503.6005 0.4-2.0 mmol/L Normal LACTIC ACID 0.7 Performed By: #### L503.6005 #### [facility] [address] [place], [address] HEMOGLOBIN A1C Collected: 10/21/2017 Status: F Source: [place] 7:55 AM [facility] REPOSITORY TYPE CODE TESTS RESULT OUT OF RANGE REFERENCE UNITS LAB L501.9985 4.2-6.3 % High HGB A1C 7.2 Performed By: #### L501.9985 #### [facility] [address] [place], [address] BEDSIDE GLUCOSE Collected: 10/21/2017 Status: F Source: [place] 7:32 AM [facility] REPOSITORY TYPE CODE TESTS RESULT OUT OF REFERENCE UNITS RANGE LAB L501.080 70-110 mg/dL High BEDSIDE GLU 176 Result Comment: MANAGEMENT OF PATIENT CARE PER NURSING PROTOCOL Performed By: #### L501.080 #### [facility] Point of Care [address] [place] [address] HISTORY AND PHYSICAL Observed: 10/21/2017 Status: F Source: [place] EXAM 6:36 AM [facility] REPOSITORY [facility] Medical Records Department [address] [place] [address] History and Physical 10/21/17 0543 MR#: [id number] Acct: [id number] Name: KATHLEEN KHAN V Rep #: [id number] : 1960 57 From: Gudelia Barron PCP: Vincent Herbert MD Status: ADM IN Location: [facility] [place] BI343-1 Problem List (1) Sepsis Status: Acute (2) Anxiety and depression Status: Chronic (3) Heart failure Status: Chronic Qualifiers: Heart failure type: unspecified Heart failure chronicity: chronic Qualified Code(s): I50.9 - Heart failure, unspecified (4) Diabetes mellitus, type II Status: Acute Qualifiers: Diabetes mellitus group home insulin use: with computer terminal operator use Diabetes mellitus complication status: with unspecified complications Qualified Code(s): E11.8 - Type 2 diabetes mellitus with unspecified complications; Z79.4 - computer terminal operator (current) use of insulin (5) Chronic back pain Status: Chronic Qualifiers: Back pain location: back pain in unspecified location Back pain laterality: unspecified Qualified Code(s): M54.9 - Dorsalgia, unspecified; G89.29 - Other chronic pain (6) JEREMÍAS (obstructive sleep apnea) Status: Chronic (7) Esophageal reflux Status: Chronic Qualifiers: Esophagitis presence: esophagitis presence not specified Qualified Code(s): K21.9 - Gastro-esophageal reflux disease without esophagitis (8) Morbid obesity Status: Chronic (9) Hypertension Status: Chronic Qualifiers: Hypertension type: essential hypertension Qualified Code(s): I10 - Essential (primary) hypertension (10) Cellulitis Status: Acute Qualifiers: Laterality: unspecified laterality History of Present Illness Date of Admission: 10/21/17 Chief Complaint: Skin redness, painful, fever onset The patient is a 57 y/o F w/ PMHx: Chronic Back and BL LE Pain following w/ Dr. Pacheco, Diabetes mellitus type II, CHF Unclear Type, Anxiety and Depression, Morbid Obesity, JEREMÍAS, GERD, HTN, Hx Frequent Cellulitis who presents to the [facility] ED on 10/21/17 with history of 24 hours R upper thigh and buttock cellulitis w/ onset fever seen per her PCP in the morning on day prior to presentation and initiated on clindamycin without improvement prompting ED presentation. This is similar location to recent admission which was treated at that time w/ ancef and upon discharge kelflex per ID recommendation. In the ED work-up included T102.1, heart rate 110, BP 147/50, respiratory rate 24, 94% room air, CBC with WBC 12.2, hemoglobin 11.8, platelet 177 with left shift, pending coags, CMP with glucose 202, lactic acid 1.0, urinalysis pending, blood culture 2 pending per ED, urine culture pending per ED, chest x-ray with chronic changes and mild congestion. In the ED patient administered Zosyn, Zofran, Tylenol, normal saline. Past Medical History Past Medical History (Chronic Problems): Chronic Problems Anxiety and depression (Chronic) Heart failure (Chronic) Chronic back pain (Chronic) History of pneumonia (Chronic) JEREMÍAS (obstructive sleep apnea) (Chronic) Lumbosacral neuritis (Chronic) Esophageal reflux (Chronic) Morbid obesity (Chronic) Hypertension (Chronic) Allergies vancomycin Allergy (Verified 10/21/17 04:07) Rash amlodipine Adverse Reaction (Verified 10/21/17 04:07) Unknown atenolol Adverse Reaction (Verified 10/21/17 04:07) Unknown bupropion HCl [From Wellbutrin] Adverse Reaction (Verified 10/21/17 04:07) Unknown fluoxetine HCl [From Prozac] Adverse Reaction (Verified 10/21/17 04:07) Unknown meloxicam [From Mobic] Adverse Reaction (Verified 10/21/17 04:07) Unknown metoprolol Adverse Reaction (Verified 10/21/17 04:07) Unknown pregabalin [From Lyrica] Adverse Reaction (Verified 10/21/17 04:07) Unknown quetiapine fumarate [From Seroquel] Adverse Reaction (Verified 10/21/17 04:07) Unknown quinapril HCl [From Accupril] Adverse Reaction (Verified 10/21/17 04:07) Unknown risperidone Adverse Reaction (Verified 10/21/17 04:07) Unknown rofecoxib [From Vioxx] Adverse Reaction (Verified 10/21/17 04:07) Unknown sitagliptin phosphate [From Januvia] Adverse Reaction (Verified 10/21/17 04:07) Unknown venlafaxine HCl [From Effexor] Adverse Reaction (Verified 10/21/17 04:07) Unknown Home Medications: Ambulatory Orders Medication Instructions Recorded Surgical History: - - Cholecystectomy, hernia repair, cataract surgery, D AND C. Psychiatric History: Anxiety, Depression RESIDENCE HALL DIRECTOR History: No pertinent RESIDENCE HALL DIRECTOR history Lives: Alone Smoking Status: Former smoker - Patient quit her tobacco usage 1997 with prior to this 1 pack per day since youth. Tobacco Use: Non-smoker Alcohol: None Drugs: None - *Family History Sibling History Items: - - Patient notes sibling with heart disease, coronary disease, diabetes, stroke. Maternal History Items: - - Patient notes a maternal family history of heart disease, diabetes, stroke. Paternal History Items: - - Patient notes a paternal family history of hypertension. Review of Systems Constitutional: Reports: Anorexia, Chills, Fever, Malaise, Weakness, Fatigue HEENT: Denies: Head Aches, Sinus Congestion, Sinus Drainage Cardiovascular: Denies: Chest Pain, Palpitations Respiratory: Reports: Shortness of breath upon exertion. Denies: Cough, Shortness of breath at rest, Sputum production Gastrointestinal: Denies: Abdominal Pain, Nausea, Vomiting Genitourinary: Denies: Dysuria Musculoskeletal: Reports: Back Pain. Denies: Joint Pain, Joint Tenderness Skin: Reports: Skin Changes. Denies: Rash, Wounds Neurological: Denies: Numbness, Tingling, Focal weakness Psychiatric: Reports: Anxiety, Depression. Denies: Homicidal Ideations, Suicidal Ideations Hematologic/ Lymphatic: Denies: Easy Bruising, Easy Bleeding VTE Information - Inpt Only VTE Present on Admission: No VTE Mechan Device Prophylaxis: SCD's VTE Pharm Prophylaxis ordered?: Yes Patient Problems: Active and Suspected Problems Sepsis (Acute) Diabetes mellitus, type II (Acute) Subjective: Seated upright in the ED bed, ill-appearing, mildly diaphoretic. Objective: Physical Examination: General: awake, alert, oriented x 3 and cooperative, seated upright in the ED bed in no apparent distress, ill appearing, sweating. Skin: normal color, turgor, no icterus, cyanosis except posterior R thigh erythema, warm to touch, TTP, BL posterior buttock erythema, TTP, warm to touch with no obvious crepitus or wound but difficult examination secondary to habitus. HEENT: AT/NC, EOMI, PERRLA, mildly dry MM, no carotid bruits or JVD noted; however, thickened neck makes examination difficult. Lungs: Distant breath sounds secondary to habitus, moderate effort, mild decrease BL bases, no rales, ronchi or wheezing. Heart: Tachycardic with regular rhythm; no gallop, rub audible. Abdomen: soft, morbidly obese, NTTP, ND, normal BS, no HSM; however, habitus difficult secondary to habitus. Extremities: no cyanosis, clubbing, see skin. Neurological: patient awake, alert, oriented x 3; cognitive function intact; pupils equally reactive to light and accomodation; cranial nerves II-XII grossly normal, moving all 4 extremities, no focal deficits, strength preserved. Psychiatric: affect appears normal, no acute evidence of depressive or anxiety feelings. - Physical Exam Vital Signs Temp Pulse Resp BP Pulse Ox 102.1 F H 98 26 H 105/54 L 92 10/21/17 04:04 10/21/17 05:27 10/21/17 05:27 10/21/17 05:27 10/21/17 05:27 Oxygen Delivery Method Room Air Weight: 396 lb 6.258 oz Body Mass Index (BMI) 74.9 Laboratory Tests Past 24 Hrs WBC 12.2 H RBC 4.23 Hgb 11.8 L Hct 36.3 L MCV 85.8 MCH 27.9 MCHC 32.5 RDW 13.5 RDW Differential 41.4 WBC RBC Hgb Hct MCV MCH MCHC RDW RDW Differential Plt Count MPV Immature Gran % (Auto) Neut % (Auto) Lymph % (Auto) Assessment/Plan All Active Problems Cellulitis (Acute) Sepsis (Acute) Diabetes mellitus, type II (Acute) The patient is a 57 y/o F w/ PMHx: Chronic Back and BL LE Pain following w/ Dr. Pacheco, Diabetes mellitus type II, CHF Unclear Type, Anxiety and Depression, Morbid Obesity, JEREMÍAS, GERD, HTN, Hx Frequent Cellulitis who presents to the [facility] ED on 10/21/17 with history of 24 hours R upper thigh and buttock cellulitis w/ onset fever seen per her PCP in the morning on day prior to presentation and initiated on clindamycin without improvement. (1) Acute Sepsis secondary to Acute Cellulitis: Febrile, tachycardic, WBC 12.2 with L shift. Will admit to [facility], maintain on IV Zosyn given sepsis appearance w/ MRSA assessment and if positive consider transition to vanc, was treated prior w/ ancef and transitioned at discharge per ID recommendation to oral keflex, plan repeat CBC in AM, continue offloading when able, monitor erythema outline with VS checks, gently hydrate given CHF history, LA normal. Given serial issues w/ cellulitis and recurrent admission will consult ID who have been following her prior. (2) CHF Unclear Type: Maintain on home regimen aspirin, Lasix, spironolactone. Not on statin therapy, BB with allergy noted nor FAMILIA inhibitor. (3) Diabetes mellitus type II: Hold oral home regimen, continue home insulin regimen, ADA diet, accu checks w/ ISS, HgbA1c pending w/ last 07/2017 8.2%, nutrition consulted for education and teaching. (4) Morbid Obesity: Weight loss and lifestyle changes encouraged, nutrition consulted. (5) Hypertension: Continue home regimen including Lasix, spironolactone, PRN hydralazine. (6) Anxiety and Depression: Continue home regimen of omeprazole, duloxetine, trazodone. (7) JEREMÍAS: BIPAP q HS. (8) GERD: Famotidine. (9) DVT prophylaxis: SCD, Lovenox. Code Visit Inpatient E AND M: [id number] Init Hosp L3 09/02/18 0636 <Electronically signed by Gudelia Barron > Date Gudelia Barron Cosigner Signature: Date (if applicable) CC: Gudelia Barron; Vincent Herbert MD Signed Observed: 10/21/2017 Status: F Source: [place] CULTURE, BLOOD (WB) 5:32 AM [facility] REPOSITORY BC No growth in 5 days. Performed By: #### M200.1000 #### [facility] [address] [place], [address] URINALYSIS, COMPLETE Collected: 10/21/2017 Status: F Source: [place] 5:20 AM [facility] REPOSITORY Order Comment: Order Date: 10/21/17 Has pt arrived? Y How was Urine Obtained? TREASURY DIRECTOR TO SPECIFY TYPE CODE TESTS RESULT OUT OF RANGE REFERENCE UNITS LAB L400.3000 Yellow COLOR Normal Yellow LAB L400.3050 Clear Normal CLARITY Clear LAB L400.3200 Normal mg/dl Normal GLUCOSE, UR Normal LAB L400.3300 Negative mg/dL High BILIRUBIN URINE 1 Result Comment: COLOR OF URINE MAY AFFECT DIPSTICK RESULTS. LAB L400.3400 Negative mg/dl High KETONE UR 5 LAB L400.3465 1.002-1.030 Normal SP.GR. DIPSTX 1.015 LAB L400.3550 5.0 - 8.0 pH Normal UR 5.0 LAB L400.3600 Negative mg/dl High PROT DIPSTX 15 LAB L400.3700 Normal mg/dl High UROBILI 1 LAB L400.3750 Negative Normal NITRITE UR Negative LAB L400.3780 Negative /ul Normal OCCULT Negative BLOOD-UR LAB L400.3800 Negative /ul High LEUK ESTERASE 25 LAB L400.4050 0-5 /hpf Normal WBC 0-5 SEEN LAB L400.4100 0-5 /hpf Normal RBC-UA 0 SEEN LAB L400.4150 5-10 /hpf Normal SQUAM EPI 0 SEEN LAB L400.4300 None Seen /hpf Normal BACTERIA RARE LAB L400.4350 <or=2+ /hpf Normal MUCUS, URINE 1+ Performed By: #### L400.0001 #### [facility] [address] [place], [address] Observed: 10/21/2017 Status: F Source: [place] CULTURE, URINE 5:20 AM [facility] REPOSITORY Order Date: 10/21/17 Has pt arrived? Y Urine Culture Culture exhibits no growth. Performed By: #### M100.0650 #### [facility] [address] [place], [address] CBC W/DIFF, AUTOMATED Collected: 10/21/2017 Status: F Source: [place] 4:35 AM [facility] REPOSITORY TYPE CODE TESTS RESULT OUT OF RANGE REFERENCE UNITS LAB L100.1000 4.4-11.0 K/mm3 High WBC 12.2 LAB L100.1200 4.2-5.4 M/mm3 Normal RBC 4.23 LAB L100.1300 12.0-15.0 g/dl Low HGB 11.8 LAB L100.1400 37-47 % Low HCT 36.3 LAB L100.1500 81-99 fL Normal MCV 85.8 LAB L100.1600 27.0-32.0 pg Normal MCH 27.9 LAB L100.1700 32-36 g/gl Normal MCHC 32.5 LAB L100.1810 11.6-14.6 % Normal RDW CV 13.5 LAB L100.1820 35.1-43.9 fl Normal RDW SD 41.4 LAB L100.1900 150-450 K/mm3 Normal PLT 177 LAB L100.2000 6.2-12.0 fl Normal MPV 11.0 LAB L100.2100 47-70 % High NEUT% 90.7 LAB L100.2200 19-41 % Low LY% 4.0 LAB L100.2300 0-10 % Normal MONO% 4.7 LAB L100.2400 0-5 % Normal EO% 0.2 LAB L100.2500 0-1 % Normal BASO% 0.1 LAB L100.2550 0.0-0.9 % Normal IM GRAN % 0.300 Result Comment: IG% - Immature Granulocytes (promyelocytes, myelocytes and metamyelocytes) > 1% indicates that a LEFT SHIFT is Present. LAB L100.2620 2.0-7.7 X10 3/uL High Absolute Neut 11.1 LAB L100.2720 0.83-4.51 X10 3/ul Low Absolute Lymph 0.49 Performed By: #### L100.0100 #### [facility] [address] [place], [address] COMPREHENSIVE METABOLIC Collected: 10/21/2017 Status: F Source: [facility] 4:35 AM [facility] REPOSITORY TYPE CODE TESTS RESULT OUT OF RANGE REFERENCE UNITS LAB L501.0100 74-106 mg/dL High GLU 202 Result Comment: Glucose result greater than or equal to 200 mg/dL suggests DIABETES MELLITUS per A.D.A. criteria. Please note revised GLUCOSE reference range effective 2017. LAB L501.1000 7-18 mg/dL Normal BUN 16 LAB L501.1100 0.55-1.02 mg/dL Normal CREAT,SERUM 0.63 Result Comment: The validity of the calculated GFR AND GFRAA in patients over 70 years has not been determined. Clinical correlation is essential. LAB L501.1110 >60 mL/min Normal EST GFR 104 Result Comment: Non- GFR Calc LAB L501.1115 >60 mL/min Normal EST GFR - AA 126 Result Comment: GFR Calc LAB L501.1255 ml/min Normal Estimated CRCL 74.35 LAB L501.1300 10-20 RATIO High BUN/CRE 25.5 LAB L501.1500 6.4-8. g/dL Low 2 T PROT 6.2 LAB L501.1800 3.2-5. g/dL Low 0 ALB 3.1 LAB L501.1950 2.2-4. g/dL Normal 2 GLOB 3.1 LAB L501.2000 0.9-2. RATIO Normal 4 A/G 1.0 LAB L501.2200 8.5-10 mg/dL Low .1 CA 8.4 LAB L501.4100 15-37 U/L Low AST 8 LAB L501.4305 45-117 U/L Normal ALK P 103 LAB L501.4405 13-56 U/L Normal ALT 16 LAB L501.4600 0.20-1 mg/dL Normal .00 T BILI 0.70 LAB L501.5300 136-14 mmol/L Normal 5 NA 139 LAB L501.5600 3.5-5. mmol/L Normal 1 K 3.9 LAB L501.5900 98-107 mmol/L Normal CL 103 LAB L501.6100 21.0-3 mmol/L Normal 2.0 CO2 27.0 LAB L501.6200 5-15 Normal GAP 9 Performed By: #### L500.4050 #### [facility] [address] [place], [address] LACTIC ACID Collected: 10/21/2017 Status: F Source: [place] 4:35 AM [facility] REPOSITORY Order Comment: Yes/No query for Sepsis Lactate Rule Y TYPE CODE TESTS RESULT OUT OF RANGE REFERENCE UNITS LAB L503.6005 0.4-2.0 mmol/L Normal LACTIC ACID 1.0 Performed By: #### L503.6005 #### [facility] [address] [place], [place], [id number] PROTHROMBIN TIME W/INR Collected: 10/21/2017 Status: F Source: [place] 4:35 AM [facility] REPOSITORY TYPE CODE TESTS RESULT OUT OF RANGE REFERENCE UNITS LAB L300.4150 11.7-14.9 SECONDS Normal PROTIME 14.1 LAB L300.4200 Normal INR 1.1 Performed By: #### L300.3900, L300.4310 #### [facility] [address] [place], [address] PARTIAL THROMBOPLAST Collected: 10/21/2017 Status: F Source: [place] TIME 4:35 AM [facility] REPOSITORY TYPE CODE TESTS RESULT OUT OF RANGE REFERENCE UNITS LAB L300.4310 24.1-36.2 Seconds Normal PTT 31.9 Performed By: #### L300.3900, L300.4310 #### [facility] [address] [place], [address] CRP Collected: 10/21/2017 Status: F Source: [place] 4:35 AM [facility] REPOSITORY TYPE CODE TESTS RESULT OUT OF RANGE REFERENCE UNITS LAB L501.6710 0.0-3.0 mg/L High 127.00 C-REACTIVE PROT Result Comment: C-Reactive Protein (CRP) provides useful information for the diagnosis, therapy and monitoring of inflammatory processes and associated diseases. For the evaluation of Relative Risk for Cardiovascular Disease, a High Sensitivity CRP (HSCRP) should be ordered. Performed By: #### L501.6710 #### [facility] [address] [place], [address] ERYTHROCYTE SED RATE Collected: 10/21/2017 Status: F Source: [place] 4:35 AM [facility] REPOSITORY TYPE CODE TESTS RESULT OUT OF RANGE REFERENCE UNITS LAB L102.0000 0-30 mm/hr Normal SED RATE 21 Performed By: #### L101.9900 #### [facility] [address] [place], [address] Observed: 10/21/2017 Status: F Source: [place] CULTURE, BLOOD (WB) 4:35 AM [facility] REPOSITORY BC No growth in 5 days. Performed By: #### M200.1000 #### [facility] [address] [place], [address] CHEST 1 VIEW Observed: 10/21/2017 Status: F Source: [place] (PORTABLE) 4:33 AM [facility] REPOSITORY [facility] Imaging Services [address] [place] [address] Chest 1 View (Portable) MR#: [id number] Acct: [id number] Name: KATHLEEN KHAN V Rep #: [id number] : 1960 F 57 From: Arnav Romero MD PCP: Vincent Herbert MD Status: REG ER Study: Chest 1 View (Portable) Date of Exam: 10/21/17 Exam# [id number] Ordering Dr: Mikayla Pérez MD STUDY: X-RAY CHEST REASON FOR EXAM: Female, 57 years old. Soft tissue infection. Patient has fever. Evaluate for sepsis. TECHNIQUE: Single AP portable view of the chest. COMPARISON: Chest radiograph dated August 01, 2017. FINDINGS: Cardiac monitoring leads are present. The lungs are expanded. There are prominent bronchovascular markings. There is a prominent left-sided epicardial fat pad. There is no demonstrated pleural abnormality. There is borderline cardiomegaly. Normal mediastinum and erich. There is prominence of the pulmonary hilar arteries with peripheral pulmonary vascular congestion. There is atherosclerotic tortuosity of the aortic arch and descending thoracic aorta. Normal visualized thoracic spine. There are degenerative changes of both shoulders. There is no demonstrated abnormality of the visualized soft tissue structures of the upper abdomen. RAD/Chest 1 View (Portable) IMPRESSION: Borderline cardiomegaly and mild pulmonary congestion. Electronically Signed: Arnav Romero MD at 5:28 EDT , Service support , CC: Mikayla Pérez MD; Vincent Herbert MD Plate Grainer: Signed CBC AND DIFFERENTIAL Collected: 10/20/2017 Status: F Source: [place] 12:03 PM [facility] REPOSITORY TYPE CODE TESTS RESULT OUT OF REFERENCE UNITS RANGE LAB WBC 3.70-11.00 k/uL WBC High 13.39 LAB RBC 3.90-5.20 m/uL RBC 4.73 LAB HGB 11.5-15.5 g/dL Hemoglobin 13.2 LAB HCT 36.0-46.0 % Hematocrit 40.8 LAB MCV 80.0-100.0 fL MCV 86.3 LAB MCH 26.0-34.0 pG MCH 27.9 LAB MCHC 30.5-36.0 g/dL MCHC 32.4 LAB RDWCV 11.5-15.0 % RDW-CV 13.2 LAB PLTCT 150-400 k/uL Platelet Count 229 LAB MPV 9.0-12.7 fL MPV 11.6 LAB ANEUT % Neut% 91.3 LAB AANEUT 1.45-7.50 k/uL Abs Neut High 12.21 LAB ALYMP % Lymph% 4.1 LAB AALYMP 1.00-4.00 k/uL Low Abs Lymph 0.55 LAB AMONO % [place]% 3.7 LAB AAMONO <0.87 k/uL Abs [place] 0.50 LAB AEOS % Eosin% 0.7 LAB AAEOS <0.46 k/uL Abs Eosin 0.10 LAB ABASO % Baso% 0.2 LAB AABASO <0.11 k/uL Abs Baso 0.03 LAB AUNRBC 0 /100 WBC NRBCs 0.0 LAB ABNRBC <0.01 k/uL Absolute nRBC <0.01 LAB DTYP DTYPE Auto Diff Performed By: #### CBCDIF, WSR, HBA1C #### [facility] [address] [place], [place] [address] SED RATE WESTERGREN Collected: 10/20/2017 Status: F Source: [place] 12:03 PM [facility] REPOSITORY TYPE CODE TESTS RESULT OUT OF REFERENCE UNITS RANGE LAB WSR 0-20 mm/hr Sed Rate High [place] 27 Performed By: #### CBCDIF, WSR, HBA1C #### [facility] [address] [place] [id number] HEMOGLOBIN A1C Collected: 10/20/2017 Status: F Source: [place] 12:03 PM [facility] REPOSITORY TYPE CODE TESTS RESULT OUT OF REFERENCE UNITS RANGE LAB HGBA1C 4.3-5.6 % High Hemoglobin A1c 6.8 LAB HBA0 mg/dL Est. Average Glucose 148 Result Comment: eAG: (Estimated average glucose) is a calculated value from HgbA1c and is hospital sales representative of the average blood glucose level in the last 2-3 month period. Performed By: #### CBCDIF, WSR, HBA1C #### [facility] [address] [place], [place] [address] PROGRESS Observed: 10/20/2017 Status: COMPLETED Source: [place] 11:49 AM [facility] REPOSITORY HNO ID: [id number] Author: Vincent Herbert Service: (none) Author Type: Physician Type: Progress Notes Filed: 10/20/2017 12:14 PM Note Text: Patient presents with: Cellulitis: left side buttocks HPI: Patient presents today for office visit for recurrent cellulitis of her buttocks. Was hospitalized in August and discharged on keflex. She had a cellulitis that was originally given iv antibiotics due to possible early sepsis. She was seen by ID. It was felt it was a complication of her morbid obesity, uncontrolled dm and immobility. She was doing better until this am. She has been seeing bariatrics. She is working on being more active. Woke up with general malaise. Has soreness on her buttock. No fever or chills. DM: says sugars have been better. Watching her diet. No polyuria or polydipsia. PSYCH: stable and doing well HYPERTENSION: no chest pain or shortness of breath. No edema. No palpitations. MEDICATIONS: Current Outpatient Prescriptions: nabumetone (RELAFEN) 500 mg tablet Take 1 tablet by mouth once daily. TAKE WITH FOOD gabapentin (NEURONTIN) 300 mg capsule Take 1 capsule by mouth twice daily for 90 days. glimepiride (AMARYL) 2 mg tablet Take 1 tablet by mouth once daily. Blood-Glucose Meter monitoring kit Glucose Meter of Choice - Kit - Dx: Type 2 DM - Controlled E11.9 Use twice daily as directed insulin glargine (BASAGLAR KWIKPEN U-100 INSULIN) 100 unit/mL (3 mL) inpn Inject 30 Units subcutaneously daily at bedtime. nystatin (MYCOSTATIN) cream Apply 1 application to affected area twice daily. baclofen (LIORESAL) 10 mg tablet Take 1 tablet by mouth twice daily. linagliptin (TRADJENTA) 5 mg tab Take 1 tablet by mouth once daily. spironolactone (ALDACTONE) 25 mg tablet Take 1 tablet by mouth once daily. ranitidine (ZANTAC) 150 mg tablet Take 1 tablet by mouth twice daily. furosemide (LASIX) 20 mg tablet Take 1 tablet by mouth once daily. DULoxetine (CYMBALTA) 60 mg capsule Take 1 capsule by mouth once daily. primidone (MYSOLINE) 50 mg tablet TAKE ONE TABLET ONCE DAILY AT BEDTIME Insulin [place], Disposable, (BD ULTRA-FINE MADI PEN NEEDLE) 32 gauge x ndle Use one needle for each dose. 1/day. HYDROcodone-acetaminophen (NORCO) 5-325 mg per tablet TAKE ONE TABLET TWICE DAILY blood sugar diagnostic (BLOOD GLUCOSE TEST) test strip Test blood sugar(s) 2 times daily. Dx: Type 2 DM - Controlled E11.9 Insulin: No TRUETEST TEST STRIPS test strip TEST twice a day lancets (TRUEPLUS LANCETS) 30 gauge misc Test twice daily Dx: 250.02 traZODone (DESYREL) 50 mg tablet Take 0.5 tablets by mouth daily at bedtime. ARIPiprazole (ABILIFY) 10 mg tablet Take 1 tablet by mouth once daily. potassium chloride ER (K-DUR, KLOR-CON) 10 mEq tablet Take 1 tablet by mouth once daily. nitroglycerin sublingual (NITROQUICK) 0.4 mg SL tablet Dissolve 1 tablet under the tongue as needed. FOR CHEST PAIN. IF NO RELIEF CALL 911 polyethylene glycol 3350 (MIRALAX, GLYCOLAX) 17 gram/dose powder Take 17 g by mouth once daily. aspirin, enteric coated (ECOTRIN LOW STRENGTH) 81 mg EC tablet Take 1 tablet by mouth once daily. No current facility-administered medications for this visit. ALLERGIES: ALLERGIES Allergen Reactions - Lyrica [Pregabalin] Anaphylaxis Not sure if accurate. Can take gabapentin. Patient is unsure of reaction. - Accupril [Quinapril* Intolerance dizziness - Amlodipine Swelling Leg edema - Atenolol Swelling - Effexor [Venlafaxin* swelling high blood pressure - Januvia [Sitaglipti* GI Upset, Other: See Comments Patient states she couldn't eat - Metoprolol Swelling - Mobic [Meloxicam] GI Upset - Prozac [Fluoxetine * Intolerance tremor - Risperidone Mental Status Change - Seroquel [Quetiapin* hypertension,swelling - Vancomycin Itching, Other: See Comments red all over - Vioxx [Rofecoxib] GI Upset - Wellbutrin [Bupropi* Intolerance nightmares PAST MEDICAL HISTORY Diagnosis Date - Abnormal glandular Papanicolaou smear of cervix 05/30/05 ABNL GLANDULAR PAP SMEAR CERVIX - Acute gastritis without mention of hemorrhage - Anxiety state, unspecified - Arrhythmia - Chronic cholecystitis - Chronic obstructive pulmonary disease (COPD) (HCC) - Congestive heart failure (HCC) 10/03/2011 - Diabetes (HCC) - diabetes II 2010 - Diaphragmatic hernia without mention of obstruction or gangrene - Dysthymic disorder Depression (non-psychotic) - Esophageal reflux - Essential hypertension, benign - Generalized OA - Localized osteoarthrosis not specified whether primary or secondary, lower leg - Major depressive disorder, recurrent episode - Mucous polyp of cervix 07/19/05 - Other and unspecified anterior pituitary hyperfunction 10/13/05 elevated prolactin level-was normal in 2012 - PMH - PAST MEDICAL HISTORY OF sleep apnea - PMH - PAST MEDICAL HISTORY OF sleep apnea - SVT (supraventricular tachycardia) (HCC) - 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 PAST SURGICAL HISTORY Procedure Laterality Date - CERVICAL BIOPSY OR EXCISION 07/19/05 endocervical polyp - COLONOSCOP W/ OR W/O BRSH SPEC 01/09/2012 Colonoscopy repeat 10 years - COLPOSCOPY (VAGINOSCOPY) Colposcopy - EGD W/O BRSH SPECIMEN W/BX 01/16/07 - EGD W/O OR W/BRUSH/WASH 01/09/2012 EGD - HYSTEROSCOPY DX 12/17/2014 [facility] - LAP CHOLECYSTECT/CHOLANGIOGRAPHY 05/15/08 FAMILY HISTORY Problem Relation Age of Onset - Hypertension Mother - Heart Mother concha stroke - Diabetes Mother - Stroke Mother Massive- - Arthritis Mother Osteoarthritis - Hypertension Father - COPD Father - Hypertension Sister 2 - Hypertension Brother 3 - Heart Brother triple bypass at 48 - Heart Maternal Aunt - Heart Maternal Uncle - Diabetes Brother 3 Brother's with diabetes - Diabetes Sister - Arthritis Sister - Arthritis Brother - Arthritis Brother - Arthritis Brother Social History Marital status: Single Spouse name: Years of education: 9 Number of children: 0 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 REVIEW OF SYSTEMS GI: Negative for blood in stools or black stools, change in bowel habit : No history of dysuria, frequency or incontinence All other reviewed and negative other than HPI. HEALTH MAINTENANCE: Reviewed health maintenance issues today and recommended the following in detail. INFLUENZA recommended. VITALS: BP 132/80 Pulse 96 Temp 37.2 ?C (98.9 ?F) (Tympanic) Resp 16 LMP 12/11/2008 Last 4 Encounter Wt Readings: Date: Wt: 07/20/2017 182 kg (401 lb 3.2 oz) 06/29/2017 179.6 kg (396 lb) 06/25/2017 181 kg (399 lb) 04/10/2016 175.1 kg (386 lb) PHYSICAL EXAMINATION: General appearance: Well appearing, alert, in no acute distress, well-hydrated, well nourished. nontoxic Skin: large portion of right buttocks, extending over the crease to top of the left is red and warm. No signs of abscess. Seen on chaperoned exam. Lungs: Lungs clear to auscultation. No wheezing, rhonchi, rales Heart: RRR without murmur, gallop, or rubs. No ectopy Abdomen: Normal abdominal exam, Abdomen soft, non-tender. Bowel sounds normal. No masses, organomegaly Extremities: No deformities, edema, skin discoloration, clubbing or cyanosis. Good capillary refill. Musculoskeletal: No joint swelling, deformity, or tenderness Peripheral pulses: Normal Neuro: Negative. ASSESSMENT/PLAN: 1. Cellulitis of buttock - ICD9: 682.5, ICD10: L03.317 (primary diagnosis) - Begin treatment with Clindamycin - No lymphangetic streaking, this was defined for patient to watch for and to seek medical care immediately if appears - Follow up for recheck in three days or prn. - Discussed risks and benefits of new medication with the patient. Advised them to call if any side effects or questions. - .Red flags for re-assessment reviewed with patient in detail. - check labs. Does not require ER eval today but to go to er over holiday weekend if worsens. - reiterated daily baths, changing positions and offloading the buttocks. Continue to work on weight loss and maximize sugars. - CBC + DIFF - SED RATE WESTERGREN - CLINDAMYCIN HCL 150 MG CAPSULE 2. Morbid obesity (HCC) - ICD9: 278.01, ICD10: E66.01 -as above. 3. SVT (supraventricular tachycardia) (HCC) - ICD9: 427.89, ICD10: I47.1 - stable. Asymptomatic. 4. Major depressive disorder, recurrent episode, moderate (HCC) - ICD9: 296.32, ICD10: F33.1 -continue meds. 5. Type 2 diabetes mellitus without complication, unspecified whether computer terminal operator insulin use (HCC) - ICD9: 250.00, ICD10: E11.9 - check labs. - HGB A1C 6. Congestive heart failure, unspecified HF chronicity, unspecified heart failure type (HCC) - ICD9: 428.0, ICD10: I50.9 - call if any worsening symptoms. 7. Essential hypertension, benign - ICD9: 401.1, ICD10: I10 - good control - Continue current medication(s) - Goal of BP <140/90 Vincent Herbert MD CNOV Observed: 10/20/2017 Status: COMPLETED Source: [facility] 11:40 AM [facility] REPOSITORY Office Visit (FAMPWS) KATHLEEN KHAN V ([id number]) 1960 F Date Time Provider Department 10/20/17 11:40 AM VINCENT HERBERT FAMPWS During your visit today, we recorded the following information about you: Temperature Pulse Respiration Blood pressure 98.9 degrees 96/minute 16/minute 132/80 Brittany Valencia PIA 10/20/2017 11:38 AM Signed Noticed this morning about 2am and area has gotten bigger since then. Temp at home was up to 100. Vincent Herbert MD 10/20/2017 12:14 PM Signed Patient presents with: Cellulitis: left side buttocks HPI: Patient presents today for office visit for recurrent cellulitis of her buttocks. Was hospitalized in August and discharged on keflex. She had a cellulitis that was originally given iv antibiotics due to possible early sepsis. She was seen by ID. It was felt it was a complication of her morbid obesity, uncontrolled dm and immobility. She was doing better until this am. She has been seeing bariatrics. She is working on being more active. Woke up with general malaise. Has soreness on her buttock. No fever or chills. DM: says sugars have been better. Watching her diet. No polyuria or polydipsia. PSYCH: stable and doing well HYPERTENSION: no chest pain or shortness of breath. No edema. No palpitations. MEDICATIONS: Current Outpatient Prescriptions: nabumetone (RELAFEN) 500 mg tablet Take 1 tablet by mouth once daily. TAKE WITH FOOD gabapentin (NEURONTIN) 300 mg capsule Take 1 capsule by mouth twice daily for 90 days. glimepiride (AMARYL) 2 mg tablet Take 1 tablet by mouth once daily. Blood-Glucose Meter monitoring kit Glucose Meter of Choice - Kit - Dx: Type 2 DM - Controlled E11.9 Use twice daily as directed insulin glargine (BASAGLAR KWIKPEN U-100 INSULIN) 100 unit/mL (3 mL) inpn Inject 30 Units subcutaneously daily at bedtime. nystatin (MYCOSTATIN) cream Apply 1 application to affected area twice daily. baclofen (LIORESAL) 10 mg tablet Take 1 tablet by mouth twice daily. linagliptin (TRADJENTA) 5 mg tab Take 1 tablet by mouth once daily. spironolactone (ALDACTONE) 25 mg tablet Take 1 tablet by mouth once daily. ranitidine (ZANTAC) 150 mg tablet Take 1 tablet by mouth twice daily. furosemide (LASIX) 20 mg tablet Take 1 tablet by mouth once daily. DULoxetine (CYMBALTA) 60 mg capsule Take 1 capsule by mouth once daily. primidone (MYSOLINE) 50 mg tablet TAKE ONE TABLET ONCE DAILY AT BEDTIME Insulin Hamlin, Disposable, (BD ULTRA-FINE MADI PEN NEEDLE) 32 gauge x 32 ndle Use one needle for each dose. 1/day. HYDROcodone-acetaminophen (NORCO) 5-325 mg per tablet TAKE ONE TABLET TWICE DAILY blood sugar diagnostic (BLOOD GLUCOSE TEST) test strip Test blood sugar(s) 2 times daily. Dx: Type 2 DM - Controlled E11.9 Insulin: No TRUETEST TEST STRIPS test strip TEST twice a day lancets (TRUEPLUS LANCETS) 30 gauge misc Test twice daily Dx: 250.02 traZODone (DESYREL) 50 mg tablet Take 0.5 tablets by mouth daily at bedtime. ARIPiprazole (ABILIFY) 10 mg tablet Take 1 tablet by mouth once daily. potassium chloride ER (K-DUR, KLOR-CON) 10 mEq tablet Take 1 tablet by mouth once daily. nitroglycerin sublingual (NITROQUICK) 0.4 mg SL tablet Dissolve 1 tablet under the tongue as needed. FOR CHEST PAIN. IF NO RELIEF CALL 911 polyethylene glycol 3350 (MIRALAX, GLYCOLAX) 17 gram/dose powder Take 17 g by mouth once daily. aspirin, enteric coated (ECOTRIN LOW STRENGTH) 81 mg EC tablet Take 1 tablet by mouth once daily. No current facility-administered medications for this visit. ALLERGIES: ALLERGIES Allergen Reactions - Lyrica [Pregabalin] Anaphylaxis Not sure if accurate. Can take gabapentin. Patient is unsure of reaction. - Accupril [Quinapril* Intolerance dizziness - Amlodipine Swelling Leg edema - Atenolol Swelling - Effexor [Venlafaxin* swelling high blood pressure - Januvia [Sitaglipti* GI Upset, Other: See Comments Patient states she couldn't eat - Metoprolol Swelling - Mobic [Meloxicam] GI Upset - Prozac [Fluoxetine * Intolerance tremor - Risperidone Mental Status Change - Seroquel [Quetiapin* hypertension,swelling - Vancomycin Itching, Other: See Comments red all over - Vioxx [Rofecoxib] GI Upset - Wellbutrin [Bupropi* Intolerance nightmares PAST MEDICAL HISTORY Diagnosis Date - Abnormal glandular Papanicolaou smear of cervix 05/30/05 ABNL GLANDULAR PAP SMEAR CERVIX - Acute gastritis without mention of hemorrhage - Anxiety state, unspecified - Arrhythmia - Chronic cholecystitis - Chronic obstructive pulmonary disease (COPD) ([facility]) - Congestive heart failure (HCC) 10/03/2011 - Diabetes ([facility]) - diabetes II 2010 - Diaphragmatic hernia without mention of obstruction or gangrene - Dysthymic disorder Depression (non-psychotic) - Esophageal reflux - Essential hypertension, benign - Generalized OA - Localized osteoarthrosis not specified whether primary or secondary, lower leg - Major depressive disorder, recurrent episode - Mucous polyp of cervix 07/19/05 - Other and unspecified anterior pituitary hyperfunction 10/13/05 elevated prolactin level-was normal in 2011 - PMH - PAST MEDICAL HISTORY OF sleep apnea - PMH - PAST MEDICAL HISTORY OF sleep apnea - SVT (supraventricular tachycardia) (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 PAST SURGICAL HISTORY Procedure Laterality Date - CERVICAL BIOPSY OR EXCISION 07/19/05 endocervical polyp [facility] Colonoscopy repeat 10 years - COLPOSCOPY (VAGINOSCOPY) Colposcopy - EGD W/O [facility] SPECIMEN W/BX 01/16/07 - EGD W/O OR W/BRUSH/WASH 01/09/2012 EGD - HYSTEROSCOPY DX 12/17/2014 [facility] - LAP CHOLECYSTECT/CHOLANGIOGRAPHY 05/15/08 FAMILY HISTORY Problem Relation Age of Onset - Hypertension Mother - Heart Mother concha stroke - Diabetes Mother - Stroke Mother Massive- - Arthritis Mother Osteoarthritis - Hypertension Father - COPD Father - Hypertension Sister 2 - Hypertension Brother 3 - Heart Brother triple bypass at 48 - Heart Maternal Aunt - Heart Maternal Uncle - Diabetes Brother 3 Brother's with diabetes - Diabetes Sister - Arthritis Sister - Arthritis Brother - Arthritis Brother - Arthritis Brother Social History Marital status: Single Spouse name: Years of education: 9 Number of children: 0 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 REVIEW OF SYSTEMS GI: Negative for blood in stools or black stools, change in bowel habit : No history of dysuria, frequency or incontinence All other reviewed and negative other than HPI. HEALTH MAINTENANCE: Reviewed health maintenance issues today and recommended the following in detail. INFLUENZA recommended. VITALS: BP 132/80 Pulse 96 Temp 37.2 ?C (98.9 ?F) (Tympanic) Resp 16 LMP 12/11/2008 Last 4 Encounter Wt Readings: Date: Wt: 07/20/2017 182 kg (401 lb 3.2 oz) 06/29/2017 179.6 kg (396 lb) 06/25/2017 181 kg (399 lb) 04/10/2016 175.1 kg (386 lb) PHYSICAL EXAMINATION: General appearance: Well appearing, alert, in no acute distress, well-hydrated, well nourished. nontoxic Skin: large portion of right buttocks, extending over the crease to top of the left is red and warm. No signs of abscess. Seen on chaperoned exam. Lungs: Lungs clear to auscultation. No wheezing, rhonchi, rales Heart: RRR without murmur, gallop, or rubs. No ectopy Abdomen: Normal abdominal exam, Abdomen soft, non-tender. Bowel sounds normal. No masses, organomegaly Extremities: No deformities, edema, skin discoloration, clubbing or cyanosis. Good capillary refill. Musculoskeletal: No joint swelling, deformity, or tenderness Peripheral pulses: Normal Neuro: Negative. ASSESSMENT/PLAN: 1. Cellulitis of buttock - ICD9: 682.5, ICD10: L03.317 (primary diagnosis) - Begin treatment with Clindamycin - No lymphangetic streaking, this was defined for patient to watch for and to seek medical care immediately if appears - Follow up for recheck in three days or prn. - Discussed risks and benefits of new medication with the patient. Advised them to call if any side effects or questions. - .Red flags for re-assessment reviewed with patient in detail. - check labs. Does not require ER eval today but to go to er over holiday weekend if worsens. - reiterated daily baths, changing positions and offloading the buttocks. Continue to work on weight loss and maximize sugars. - CBC + DIFF - SED RATE WESTERGREN - CLINDAMYCIN HCL 150 MG CAPSULE 2. Morbid obesity (HCC) - ICD9: 278.01, ICD10: E66.01 -as above. 3. SVT (supraventricular tachycardia) (HCC) - ICD9: 427.89, ICD10: I47.1 - stable. Asymptomatic. 4. Major depressive disorder, recurrent episode, moderate (HCC) - ICD9: 296.32, ICD10: F33.1 -continue meds. 5. Type 2 diabetes mellitus without complication, unspecified whether computer terminal operator insulin use (HCC) - ICD9: 250.00, ICD10: E11.9 - check labs. - HGB A1C 6. Congestive heart failure, unspecified HF chronicity, unspecified heart failure type (HCC) - ICD9: 428.0, ICD10: I50.9 - call if any worsening symptoms. 7. Essential hypertension, benign - ICD9: 401.1, ICD10: I10 - good control - Continue current medication(s) - Goal of BP <140/90 Vincent Herbert MD Referring Provider: SELF [[id number]] Allergies As of Date: 10/20/2017 Noted Allergy Reaction LYRICA (PREGABALIN) 08/05/2012 10 - Anaphylaxis Comments: Not sure if accurate. Can take gabapentin. Patient is unsure of reaction. ACCUPRIL (QUINAPRIL HCL) 08/12/2005 5 - Intolerance Comments: dizziness AMLODIPINE 04/24/2008 7 - Swelling Comments: Leg edema ATENOLOL 09/29/2010 7 - Swelling EFFEXOR (VENLAFAXINE HCL) 09/22/2005 Comments: swelling high blood pressure JANUVIA (SITAGLIPTIN) 09/21/2011 8 - GI Upset 14 - Other: See Comments Comments: Patient states she couldn't eat METOPROLOL 09/21/2009 7 - Swelling MOBIC (MELOXICAM) 08/12/2005 8 - GI Upset PROZAC (FLUOXETINE HCL) 08/12/2005 5 - Intolerance Comments: tremor RISPERIDONE 12/22/2009 1 - Mental Status Change SEROQUEL (QUETIAPINE FUMARATE) 10/05/2006 Comments: hypertension,swelling VANCOMYCIN 08/10/2017 9 - Itching 14 - Other: See Comments Comments: red all over VIOXX (ROFECOXIB) 08/12/2005 8 - GI Upset WELLBUTRIN (BUPROPION HCL) 08/12/2005 5 - Intolerance Comments: nightmares Date Reviewed: 09/17/2017 Reviewed by: Kate Brunner LPN - Fully Assessed Reason for Visit: Cellulitis [488] Cmt: left side buttocks Reason For Visit History Recorded Primary Visit Diagnosis:Cellulitis of buttock [L03.317] Other Visit Diagnoses:Morbid obesity ([facility]) [E66.01] SVT (supraventricular tachycardia) ([facility]) [I47.1] Major depressive disorder, recurrent episode, moderate ([facility]) [F33.1] Type 2 diabetes mellitus without complication, unspecified whether computer terminal operator insulin use ([facility]) [E11.9] Congestive heart failure, unspecified HF chronicity, unspecified heart failure type ([facility]) [I50.9] Essential hypertension, benign [I10] Order(s):CBC + DIFF [SQCBCDIF] Order #: [id number] FUTURE SED RATE WESTERGREN [SQWSR] Order #: [id number] FUTURE HGB A1C [AIHYW9T] Order #: [id number] FUTURE clindamycin (CLEOCIN) 150 mg capsuleTake 1 capsule by mouth four times daily.Disp: 40 capsuleRfl: 0 Prescriptions as of 10/20/2017 Sig: CLINDAMYCIN HCL 150 MG CAPSULE Take 1 capsule by mouth four * NABUMETONE 500 MG TABLET Take 1 tablet by mouth once d* GABAPENTIN 300 MG CAPSULE Take 1 capsule by mouth twice* GLIMEPIRIDE 2 MG TABLET Take 1 tablet by mouth once d* BLOOD-GLUCOSE METER KIT Glucose Meter of Choice - Kit* INSULIN GLARGINE (U-100) 100 * Inject 30 Units subcutaneousl* NYSTATIN 100,000 UNIT/GRAM TO* Apply 1 application to affect* BACLOFEN 10 MG TABLET Take 1 tablet by mouth twice * LINAGLIPTIN 5 MG TABLET Take 1 tablet by mouth once d* SPIRONOLACTONE 25 MG TABLET Take 1 tablet by mouth once d* RANITIDINE 150 MG TABLET Take 1 tablet by mouth twice * FUROSEMIDE 20 MG TABLET Take 1 tablet by mouth once d* DULOXETINE 60 MG CAPSULE,JODI* Take 1 capsule by mouth once * PRIMIDONE 50 MG TABLET TAKE ONE TABLET ONCE DAILY AT* PEN NEEDLE, DIABETIC 32 GAUGE* Use one needle for each dose.* HYDROCODONE 5 MG-ACETAMINOPHE* TAKE ONE TABLET TWICE DAILY BLOOD SUGAR DIAGNOSTIC STRIPS Test blood sugar(s) 2 times d* TRUETEST TEST STRIPS TEST twice a day LANCETS 30 GAUGE Test twice daily Dx: 250.02 TRAZODONE 50 MG TABLET Take 0.5 tablets by mouth padmini* ARIPIPRAZOLE 10 MG TABLET Take 1 tablet by mouth once d* POTASSIUM CHLORIDE ER 10 MEQ * Take 1 tablet by mouth once d* NITROGLYCERIN 0.4 MG SUBLINGU* Dissolve 1 tablet under the t* POLYETHYLENE GLYCOL 3350 17 G* Take 17 g by mouth once daily. ASPIRIN 81 MG TABLET,DELAYED * Take 1 tablet by mouth once d* Problem List As Of Date 10/20/2017 Noted Resolved Major depressive disorder, recurrent episode, u*INVALID FOR*11/24/2014 Priority: A More... Anxiety state [F41.1] INVALID FOR* BENIGN HYPERTENSION [I10] INVALID FOR* OSTEOARTHROS NOS-UNSPEC [M19.90] INVALID FOR*02/07/2007 ABNL GLANDULAR PAP SMEAR CERVIX [R87.619] INVALID FOR* HYPERPROLACTINEMIA [E22.9] INVALID FOR* IRREGULAR MENSTRUATION [N92.6] INVALID FOR* ESOPHAGEAL REFLUX [K21.9] INVALID FOR* ACUTE GASTRITIS W/O HEMORRHAGE [K29.00] INVALID FOR*02/07/2007 DIAPHRAGMATIC HERNIA [K44.9] INVALID FOR* Unspecified gastritis and gastroduodenitis with*INVALID FOR*07/24/2016 Localized osteoarthrosis not specified whether *INVALID FOR*07/24/2016 Priority: A More... Pain in joint, site unspecified [M25.50] INVALID FOR*07/24/2016 Routine general medical examination at a health*INVALID FOR*11/29/2011 Class: Chronic More... Routine gynecological examination [Z01.419] INVALID FOR*11/29/2011 Class: Chronic More... More... Morbid obesity [E66.01] INVALID FOR* Priority: Very Severe Hyperprolactinemia [E22.1] INVALID FOR*01/30/2012 Obstructive sleep apnea [G47.33] INVALID FOR* Priority: Severe More... Medication side effects [T88.7XXA] INVALID FOR*08/10/2017 SVT (supraventricular tachycardia) [I47.1] Priority: A Type II or unspecified type diabetes mellitus w*INVALID FOR*04/10/2012 Priority: Moderate More... Congestive heart failure [I50.9] INVALID FOR* Spondylolisthesis [M43.10] INVALID FOR* Lumbar facet arthropathy [M47.816] INVALID FOR* DDD (degenerative disc disease), lumbar [M51.36]INVALID FOR* Diabetes mellitus [E11.9] INVALID FOR*11/24/2014 DDD (degenerative disc disease), cervical [M50.*INVALID FOR* DM (diabetes mellitus) (HCC) [E11.9] INVALID FOR* PMB (postmenopausal bleeding) [N95.0] INVALID FOR* Dysthymia [F34.1] INVALID FOR* Major depressive disorder, recurrent episode, m*INVALID FOR* More... Pain disorder with psychological factors [F45.4*INVALID FOR* Diffuse myofascial pain syndrome [M79.1] INVALID FOR* Bilateral primary osteoarthritis of knee [M17.0]INVALID FOR* Obesity, Class III, BMI >= 40 [E66.01] INVALID FOR*10/20/2017 Liver disease [K76.9] INVALID FOR* More... Umbilical hernia without obstruction and withou*INVALID FOR* More... Visit Notes: >> Brittany Valencia LPN Sat Oct 20, 2017 11:34 AM Status: Signed Noticed this morning about 2am and area has gotten bigger since then. Temp at home was up to 100. Prescriptions ordered this encounter Disp Refills Start End CLINDAMYCIN HCL 150 MG CAPSULE 40 c* 0 10/20/2017 Route: ORAL Sig: Take 1 capsule by mouth four times daily. Follow-up and Disposition History Recorded Encounter Status:Closed by VINCENT HERBERT MD on 10/20/17 PROGRESS Observed: 09/24/2017 Status: COMPLETED Source: [facility] 11:30 AM [facility] RE[facility] O ID: [id number] Author: Arnav Benedict (Pharmacist) Service: (none) Author Type: Pharmacist Type: Progress Notes Filed: 09/24/2017 12:03 PM Note Text: Patient consents to pharmacy collaborative practice agreement. TELEPHONIC APPOINTMENT ? REASON FOR CONSULT: DM GOALS: A1c < 7% CONSULTING PROVIDER: Dr. Herbert Date of Consult: 06/2017 Kathleen Khan is a 57 year old female was last seen in [facility] by PCP, Dr. Vincent Herbert MD on 09/17. Patient is CALLED today for f/u pharmacotherapy management appointment for DM. At last PharmD visit insulin detemir was changed to glargine 300 units/mL, per insurance changed to 100 units/mL. Degludec is also covered if needed in the future. INTERIM HISTORY: Was in hospital for cellulitis Doing better now Past DM medications: Metformin both IR and ER - GI intolerance Current DM Medications: Insulin glargine 30 units once daily Linagliptin 5mg QAM Glimepiride 4mg QAM Current HTN Medications: Furosemide 20mg once daily Spironolactone 25mg once daily Preventative Medications: ? On FAMILIA/ARB: No ? On Statin: No ? On ASA: Yes ROS: ? Patient denies CP, SOB, ARAIZA, blurred vision, dizziness or lightheadedness ? Patient denies symptoms of hypoglycemia (sweating, anxiety, palpitations, hunger, and tremor) ? Patient denies symptoms of hyperglycemia (polyuria, polydipsia, polyphagia) ? Patient denies potential medication adverse effects DIET/EXERCISE/SOCIAL Hx: ? No changes since last time MEDICATIONS: ? Pill bottles are not present. ? Adherence: denies missed doses. ? Pharmacy: [facility] ? Rx coverage: [employer] ? Affordability: no issues ? Diabetes supplies: [facility] brand ? Organization System: none ACTIVE PROBLEM LIST Anxiety State Essential Hypertension, Benign ABNL GLANDULAR PAP SMEAR CERVIX HYPERPROLACTINEMIA Irregular Menstrual Cycle Esophageal Reflux Diaphragmatic Hernia Without Mention of Obstruction Or Gangrene Morbid Obesity ([facility]) Obstructive Sleep Apnea Svt (Supraventricular Tachycardia) ([facility]) Congestive Heart Failure ([facility]) Spondylolisthesis Lumbar Facet Arthropathy ([facility]) Ddd (Degenerative Disc Disease), Lumbar Ddd (Degenerative Disc Disease), Cervical Dm (Diabetes Mellitus) ([facility]) Pmb (Postmenopausal Bleeding) Dysthymia Major depressive disorder, recurrent episode, moderate ([facility]) Pain Disorder With Psychological Factors Diffuse Myofascial Pain Syndrome Bilateral Primary Osteoarthritis of Knee Obesity, Class III, BMI >= 40 Liver Disease Umbilical Hernia Without Obstruction and Without Gangrene PAST MEDICAL HISTORY Diagnosis Date - Abnormal glandular Papanicolaou smear of cervix 05/30/05 ABNL GLANDULAR PAP SMEAR CERVIX - Acute gastritis without mention of hemorrhage - Anxiety state, unspecified - Arrhythmia - Chronic cholecystitis - Chronic obstructive pulmonary disease (COPD) ([facility]) - Congestive heart failure ([facility]) 10/03/2011 - Diabetes ([facility]) - diabetes II 2010 - Diaphragmatic hernia without mention of obstruction or gangrene - Dysthymic disorder Depression (non-psychotic) - Esophageal reflux - Essential hypertension, benign - Generalized OA - Localized osteoarthrosis not specified whether primary or secondary, lower leg - Major depressive disorder, recurrent episode - Mucous polyp of cervix 07/19/05 - Other and unspecified anterior pituitary hyperfunction 10/13/05 elevated prolactin level-was normal in 2011 - PMH - PAST MEDICAL HISTORY OF sleep apnea - PMH - PAST MEDICAL HISTORY OF sleep apnea - SVT (supraventricular tachycardia) (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 ALLERGIES Allergen Reactions - Lyrica [Pregabalin] Anaphylaxis Not sure if accurate. Can take gabapentin. Patient is unsure of reaction. - Accupril [Quinapril* Intolerance dizziness - Amlodipine Swelling Leg edema - Atenolol Swelling - Effexor [Venlafaxin* swelling high blood pressure - Januvia [Sitaglipti* GI Upset, Other: See Comments Patient states she couldn't eat - Metoprolol Swelling - Mobic [Meloxicam] GI Upset - Prozac [Fluoxetine * Intolerance tremor - Risperidone Mental Status Change - Seroquel [Quetiapin* hypertension,swelling - Vancomycin Itching, Other: See Comments red all over - Vioxx [Rofecoxib] GI Upset - Wellbutrin [Bupropi* Intolerance nightmares Medication List Medication Directions Comments Action/Plan ARIPiprazole (ABILIFY) 10 mg tablet Take 1 tablet by mouth once daily. aspirin, enteric coated (ECOTRIN LOW STRENGTH) 81 mg EC tablet Take 1 tablet by mouth once daily. baclofen (LIORESAL) 10 mg tablet Take 1 tablet by mouth twice daily. blood sugar diagnostic (BLOOD GLUCOSE TEST) test strip Test blood sugar(s) 2 times daily. Dx: Type 2 DM - Controlled E11.9 Insulin: No Blood-Glucose Meter monitoring kit Glucose Meter of Choice - Kit - Dx: Type 2 DM - Controlled E11.9 Use twice daily as directed DULoxetine (CYMBALTA) 60 mg capsule Take 1 capsule by mouth once daily. furosemide (LASIX) 20 mg tablet Take 1 tablet by mouth once daily. gabapentin (NEURONTIN) 300 mg capsule Take 1 capsule by mouth twice daily for 30 days. glimepiride (AMARYL) 4 mg tablet Take 1 tablet by mouth daily with breakfast. HYDROcodone-acetaminophen (NORCO) 5-325 mg per tablet TAKE ONE TABLET TWICE DAILY indomethacin (INDOCIN) 25 mg capsule Take 1 capsule by mouth twice daily as needed. insulin glargine (BASAGLAR KWIKPEN U-100 INSULIN) 100 unit/mL (3 mL) inpn Inject 30 Units subcutaneously daily at bedtime. Insulin Hamlin, Disposable, (BD ULTRA-FINE MADI PEN NEEDLE) 32 gauge x ndle Use one needle for each dose. 1/day. lancets (TRUEPLUS LANCETS) 30 gauge misc Test twice daily Dx: 250.02 linagliptin (TRADJENTA) 5 mg tab Take 1 tablet by mouth once daily. nitroglycerin sublingual (NITROQUICK) 0.4 mg SL tablet Dissolve 1 tablet under the tongue as needed. FOR CHEST PAIN. IF NO RELIEF CALL 911 nystatin (MYCOSTATIN) cream Apply 1 application to affected area twice daily. polyethylene glycol 3350 (MIRALAX, GLYCOLAX) 17 gram/dose powder Take 17 g by mouth once daily. potassium chloride ER (K-DUR, KLOR-CON) 10 mEq tablet Take 1 tablet by mouth once daily. primidone (MYSOLINE) 50 mg tablet TAKE ONE TABLET ONCE DAILY AT BEDTIME ranitidine (ZANTAC) 150 mg tablet Take 1 tablet by mouth twice daily. spironolactone (ALDACTONE) 25 mg tablet Take 1 tablet by mouth once daily. traZODone (DESYREL) 50 mg tablet Take 0.5 tablets by mouth daily at bedtime. TRUETEST TEST STRIPS test strip TEST twice a day valACYclovir (VALTREX) 1 gram tab Take 2 tablets by mouth twice daily for 1 day. Rx meds not listed in EPIC: none OTCs: none Herbals: none GLYCEMIC CONTROL: ? Glucometer present at visit: Yes ? SMBG?s: Date Fasting AM 2 hr PP Before Lunch 2 hr PP Before Dinner 2 hr PP Bedtime 09/24 116 8/5 114 110 8/4 100 118 8/3 114 112 8/2 117 117 8/1 95 ? Hypoglycemia: no Last 3 Encounter BP Readings: Date: BP: 09/17/2017 130/82 09/14/2017 124/76 08/10/2017 128/82[BP TRUE AVERAGE[ Wt: 182 kg (401 lb 3.2 oz) BMI: 75.81 kg/(m2) LABS Lab Results Component Value Date HBA1C 7.8 07/20/2017 HBA1C 6.7 07/24/2016 HBA1C 9.0 04/24/2016 CMP: Glucose 249 08/10/2017 BUN 18 08/10/2017 Creatinine 0.63 08/10/2017 Sodium 137 08/10/2017 Potassium 4.3 08/10/2017 Chloride 94 08/10/2017 CO2 28 08/10/2017 Protein, Total 7.3 07/20/2017 Albumin 4.3 07/20/2017 Calcium 9.8 08/10/2017 Alkaline Phosphatase 173 07/20/2017 Bilirubin, Total 0.4 07/20/2017 AST 17 07/20/2017 ALT 15 07/20/2017 Estimated Creatinine Clearance: 157.9 mL/min (based on SCr of 0.63 mg/dL). Last Lipid Panel Lab Results Component Value Date CHOL 174 07/20/2017 Lab Results Component Value Date HDL 42 07/20/2017 Lab Results Component Value Date LDL 92 07/20/2017 Lab Results Component Value Date TG 199 07/20/2017 Albumin/Creat Ratio (mg/g) Date Value 02/24/2011 3 PHARMACOTHERAPY ASSESSMENT/PLAN: 1. Type 2 diabetes mellitus without complication, unspecified whether group home insulin use (HCC) - ICD9: 250.00, ICD10: E11.9 A1c goal < 7%, patient is not at goal (7.8% on 07/20). FBGs much improved since change from insulin detemir to glargine. Patient compliant with and tolerating current regimen. Patient concerned about lower bedtime BGs. Could benefit from reduction in sulfonylurea, with goal of d/c in the future. Will monitor after change. Continue insulin dose for now. Renal fxn and LFTs WNL and appropriate for continued therapy ? DECREASE glimepiride to 2mg QAM ? CONTINUE insulin glargine 30 units once daily and linagliptin 5mg ? Instructed patient to continue checking FBGs and PPBGs daily Pt is not prescribed statin therapy (indicated for moderate intensity d/t DM and ASCVD risk score 7%). Will discuss next visit. Health Maintenance issues addressed: DILATED RETINAL EXAM due on 06/23/2016 Patient is scheduled to see PCP open access. Patient to return to clinic for PharmD f/u on 10/24 telephonic. Patient verbalized understanding of instructions. Arnav Benedict, Dave, BCPS CNOV Observed: 09/24/2017 Status: COMPLETED Source: [facility] 11:30 AM [facility] REPOSITORY Office Visit (PHMEWO) KATHLEEN KHAN V ([id number]) 1960 F Date Time Provider Department 09/24/17 11:30 AM JAK (PHARMACIST)ARNAV During your visit today, we recorded the following information about you: RADHAMES VERDIN 09/24/2017 12:03 PM Signed Patient consents to pharmacy collaborative practice agreement. TELEPHONIC APPOINTMENT ? REASON FOR CONSULT: DM GOALS: A1c < 7% CONSULTING PROVIDER: Dr. Herbert Date of Consult: 06/2017 Kathleen Khan is a 57 year old female was last seen in [facility] by PCP, Dr. Vincent Herbert MD on 09/17. Patient is CALLED today for f/u pharmacotherapy management appointment for DM. At last PharmD visit insulin detemir was changed to glargine 300 units/mL, per insurance changed to 100 units/mL. Degludec is also covered if needed in the future. INTERIM HISTORY: Was in hospital for cellulitis Doing better now Past DM medications: Metformin both IR and ER - GI intolerance Current DM Medications: Insulin glargine 30 units once daily Linagliptin 5mg QAM Glimepiride 4mg QAM Current HTN Medications: Furosemide 20mg once daily Spironolactone 25mg once daily Preventative Medications: ? On FAMILIA/ARB: No ? On Statin: No ? On ASA: Yes ROS: ? Patient denies CP, SOB, ARAIZA, blurred vision, dizziness or lightheadedness ? Patient denies symptoms of hypoglycemia (sweating, anxiety, palpitations, hunger, and tremor) ? Patient denies symptoms of hyperglycemia (polyuria, polydipsia, polyphagia) ? Patient denies potential medication adverse effects DIET/EXERCISE/SOCIAL Hx: ? No changes since last time MEDICATIONS: ? Pill bottles are not present. ? Adherence: denies missed doses. ? Pharmacy: [facility] ? Rx coverage: [employer] ? Affordability: no issues ? Diabetes supplies: [facility] brand ? Organization System: none ACTIVE PROBLEM LIST Anxiety State Essential Hypertension, Benign ABNL GLANDULAR PAP SMEAR CERVIX HYPERPROLACTINEMIA Irregular Menstrual Cycle Esophageal Reflux Diaphragmatic Hernia Without Mention of Obstruction Or Gangrene Morbid Obesity (Hcc) Obstructive Sleep Apnea Svt (Supraventricular Tachycardia) (Hcc) Congestive Heart Failure (Hcc) Spondylolisthesis Lumbar Facet Arthropathy (Hcc) Ddd (Degenerative Disc Disease), Lumbar Ddd (Degenerative Disc Disease), Cervical Dm (Diabetes Mellitus) (Hcc) Pmb (Postmenopausal Bleeding) Dysthymia Major depressive disorder, recurrent episode, moderate (HCC) Pain Disorder With Psychological Factors Diffuse Myofascial Pain Syndrome Bilateral Primary Osteoarthritis of Knee Obesity, Class III, BMI >= 40 Liver Disease Umbilical Hernia Without Obstruction and Without Gangrene PAST MEDICAL HISTORY Diagnosis Date - Abnormal glandular Papanicolaou smear of cervix 05/30/05 ABNL GLANDULAR PAP SMEAR CERVIX - Acute gastritis without mention of hemorrhage - Anxiety state, unspecified - Arrhythmia - Chronic cholecystitis - Chronic obstructive pulmonary disease (COPD) ([facility]) - Congestive heart failure (HCC) 10/03/2011 - Diabetes ([facility]) - diabetes II 2010 - Diaphragmatic hernia without mention of obstruction or gangrene - Dysthymic disorder Depression (non-psychotic) - Esophageal reflux - Essential hypertension, benign - Generalized OA - Localized osteoarthrosis not specified whether primary or secondary, lower leg - Major depressive disorder, recurrent episode - Mucous polyp of cervix 07/19/05 - Other and unspecified anterior pituitary hyperfunction 10/13/05 elevated prolactin level-was normal in 2011 - PMH - PAST MEDICAL HISTORY OF sleep apnea - PMH - PAST MEDICAL HISTORY OF sleep apnea - SVT (supraventricular tachycardia) (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 ALLERGIES Allergen Reactions - Lyrica [Pregabalin] Anaphylaxis Not sure if accurate. Can take gabapentin. Patient is unsure of reaction. - Accupril [Quinapril* Intolerance dizziness - Amlodipine Swelling Leg edema - Atenolol Swelling - Effexor [Venlafaxin* swelling high blood pressure - Januvia [Sitaglipti* GI Upset, Other: See Comments Patient states she couldn't eat - Metoprolol Swelling - Mobic [Meloxicam] GI Upset - Prozac [Fluoxetine * Intolerance tremor - Risperidone Mental Status Change - Seroquel [Quetiapin* hypertension,swelling - Vancomycin Itching, Other: See Comments red all over - Vioxx [Rofecoxib] GI Upset - Wellbutrin [Bupropi* Intolerance nightmares Medication List Medication Directions Comments Action/Plan ARIPiprazole (ABILIFY) 10 mg tablet Take 1 tablet by mouth once daily. aspirin, enteric coated (ECOTRIN LOW STRENGTH) 81 mg EC tablet Take 1 tablet by mouth once daily. baclofen (LIORESAL) 10 mg tablet Take 1 tablet by mouth twice daily. blood sugar diagnostic (BLOOD GLUCOSE TEST) test strip Test blood sugar(s) 2 times daily. Dx: Type 2 DM - Controlled E11.9 Insulin: No Blood-Glucose Meter monitoring kit Glucose Meter of Choice - Kit - Dx: Type 2 DM - Controlled E11.9 Use twice daily as directed DULoxetine (CYMBALTA) 60 mg capsule Take 1 capsule by mouth once daily. furosemide (LASIX) 20 mg tablet Take 1 tablet by mouth once daily. gabapentin (NEURONTIN) 300 mg capsule Take 1 capsule by mouth twice daily for 30 days. glimepiride (AMARYL) 4 mg tablet Take 1 tablet by mouth daily with breakfast. HYDROcodone-acetaminophen (NORCO) 5-325 mg per tablet TAKE ONE TABLET TWICE DAILY indomethacin (INDOCIN) 25 mg capsule Take 1 capsule by mouth twice daily as needed. insulin glargine (BASAGLAR KWIKPEN U-100 INSULIN) 100 unit/mL (3 mL) inpn Inject 30 Units subcutaneously daily at bedtime. Insulin Hamlin, Disposable, (BD ULTRA-FINE MADI PEN NEEDLE) 32 gauge x ndle Use one needle for each dose. 1/day. lancets (TRUEPLUS LANCETS) 30 gauge misc Test twice daily Dx: 250.02 linagliptin (TRADJENTA) 5 mg tab Take 1 tablet by mouth once daily. nitroglycerin sublingual (NITROQUICK) 0.4 mg SL tablet Dissolve 1 tablet under the tongue as needed. FOR CHEST PAIN. IF NO RELIEF CALL 911 nystatin (MYCOSTATIN) cream Apply 1 application to affected area twice daily. polyethylene glycol 3350 (MIRALAX, GLYCOLAX) 17 gram/dose powder Take 17 g by mouth once daily. potassium chloride ER (K-DUR, KLOR-CON) 10 mEq tablet Take 1 tablet by mouth once daily. primidone (MYSOLINE) 50 mg tablet TAKE ONE TABLET ONCE DAILY AT BEDTIME ranitidine (ZANTAC) 150 mg tablet Take 1 tablet by mouth twice daily. spironolactone (ALDACTONE) 25 mg tablet Take 1 tablet by mouth once daily. traZODone (DESYREL) 50 mg tablet Take 0.5 tablets by mouth daily at bedtime. TRUETEST TEST STRIPS test strip TEST twice a day valACYclovir (VALTREX) 1 gram tab Take 2 tablets by mouth twice daily for 1 day. Rx meds not listed in EPIC: none OTCs: none Herbals: none GLYCEMIC CONTROL: ? Glucometer present at visit: Yes ? SMBG?s: Date Fasting AM 2 hr PP Before Lunch 2 hr PP Before Dinner 2 hr PP Bedtime 09/24 116 8/5 114 110 8/4 100 118 8/3 114 112 8/2 117 117 8/1 95 ? Hypoglycemia: no Last 3 Encounter BP Readings: Date: BP: 09/17/2017 130/82 09/14/2017 124/76 08/10/2017 128/82[BP TRUE AVERAGE[ Wt: 182 kg (401 lb 3.2 oz) BMI: 75.81 kg/(m2) LABS Lab Results Component Value Date HBA1C 7.8 07/20/2017 HBA1C 6.7 07/24/2016 HBA1C 9.0 04/24/2016 CMP: Glucose 249 08/10/2017 BUN 18 08/10/2017 Creatinine 0.63 08/10/2017 Sodium 137 08/10/2017 Potassium 4.3 08/10/2017 Chloride 94 08/10/2017 CO2 28 08/10/2017 Protein, Total 7.3 07/20/2017 Albumin 4.3 07/20/2017 Calcium 9.8 08/10/2017 Alkaline Phosphatase 173 07/20/2017 Bilirubin, Total 0.4 07/20/2017 AST 17 07/20/2017 ALT 15 07/20/2017 Estimated Creatinine Clearance: 157.9 mL/min (based on SCr of 0.63 mg/dL). Last Lipid Panel Lab Results Component Value Date CHOL 174 07/20/2017 Lab Results Component Value Date HDL 42 07/20/2017 Lab Results Component Value Date LDL 92 07/20/2017 Lab Results Component Value Date TG 199 07/20/2017 Albumin/Creat Ratio (mg/g) Date Value 02/24/2011 3 PHARMACOTHERAPY ASSESSMENT/PLAN: 1. Type 2 diabetes mellitus without complication, unspecified whether group home insulin use (HCC) - ICD9: 250.00, ICD10: E11.9 A1c goal < 7%, patient is not at goal (7.8% on 07/20). FBGs much improved since change from insulin detemir to glargine. Patient compliant with and tolerating current regimen. Patient concerned about lower bedtime BGs. Could benefit from reduction in sulfonylurea, with goal of d/c in the future. Will monitor after change. Continue insulin dose for now. Renal fxn and LFTs WNL and appropriate for continued therapy ? DECREASE glimepiride to 2mg QAM ? CONTINUE insulin glargine 30 units once daily and linagliptin 5mg ? Instructed patient to continue checking FBGs and PPBGs daily Pt is not prescribed statin therapy (indicated for moderate intensity d/t DM and ASCVD risk score 7%). Will discuss next visit. Health Maintenance issues addressed: DILATED RETINAL EXAM due on 06/23/2016 Patient is scheduled to see PCP open access. Patient to return to clinic for PharmD f/u on 10/24 telephonic. Patient verbalized understanding of instructions. Arnav Benedict, PharmD, BCPS Referring Provider: VINCENT HERBERT [[id number]] Allergies As of Date: 09/24/2017 Noted Allergy Reaction LYRICA (PREGABALIN) 08/05/2012 10 - Anaphylaxis Comments: Not sure if accurate. Can take gabapentin. Patient is unsure of reaction. ACCUPRIL (QUINAPRIL HCL) 08/12/2005 5 - Intolerance Comments: dizziness AMLODIPINE 04/24/2008 7 - Swelling Comments: Leg edema ATENOLOL 09/29/2010 7 - Swelling EFFEXOR (VENLAFAXINE HCL) 09/22/2005 Comments: swelling high blood pressure JANUVIA (SITAGLIPTIN) 09/21/2011 8 - GI Upset 14 - Other: See Comments Comments: Patient states she couldn't eat METOPROLOL 09/21/2009 7 - Swelling MOBIC (MELOXICAM) 08/12/2005 8 - GI Upset PROZAC (FLUOXETINE HCL) 08/12/2005 5 - Intolerance Comments: tremor RISPERIDONE 12/22/2009 1 - Mental Status Change SEROQUEL (QUETIAPINE FUMARATE) 10/05/2006 Comments: hypertension,swelling VANCOMYCIN 08/10/2017 9 - Itching 14 - Other: See Comments Comments: red all over VIOXX (ROFECOXIB) 08/12/2005 8 - GI Upset WELLBUTRIN (BUPROPION HCL) 08/12/2005 5 - Intolerance Comments: nightmares Date Reviewed: 09/17/2017 Reviewed by: Kate Brunner LPN - Fully Assessed Reason for Visit: Allied Health Visit [5] Cmt: DM follow-up Primary Visit Diagnosis:Type 2 diabetes mellitus without complication, unspecified whether computer terminal operator insulin use (HCC) [E11.9] Order(s):glimepiride (AMARYL) 2 mg tabletTake 1 tablet by mouth once daily.Disp: 30 tabletRfl: 5 Prescriptions as of 09/24/2017 Sig: GLIMEPIRIDE 2 MG TABLET Take 1 tablet by mouth once d* BLOOD-GLUCOSE METER KIT Glucose Meter of Choice - Kit* INDOMETHACIN 25 MG CAPSULE Take 1 capsule by mouth twice* INSULIN GLARGINE (U-100) 100 * Inject 30 Units subcutaneousl* NYSTATIN 100,000 UNIT/GRAM TO* Apply 1 application to affect* BACLOFEN 10 MG TABLET Take 1 tablet by mouth twice * LINAGLIPTIN 5 MG TABLET Take 1 tablet by mouth once d* SPIRONOLACTONE 25 MG TABLET Take 1 tablet by mouth once d* RANITIDINE 150 MG TABLET Take 1 tablet by mouth twice * FUROSEMIDE 20 MG TABLET Take 1 tablet by mouth once d* DULOXETINE 60 MG CAPSULE,JODI* Take 1 capsule by mouth once * PRIMIDONE 50 MG TABLET TAKE ONE TABLET ONCE DAILY AT* PEN NEEDLE, DIABETIC 32 GAUGE* Use one needle for each dose.* GABAPENTIN 300 MG CAPSULE Take 1 capsule by mouth twice* HYDROCODONE 5 MG-ACETAMINOPHE* TAKE ONE TABLET TWICE DAILY BLOOD SUGAR DIAGNOSTIC STRIPS Test blood sugar(s) 2 times d* TRUETEST TEST STRIPS TEST twice a day LANCETS 30 GAUGE Test twice daily Dx: 250.02 TRAZODONE 50 MG TABLET Take 0.5 tablets by mouth padmini* ARIPIPRAZOLE 10 MG TABLET Take 1 tablet by mouth once d* POTASSIUM CHLORIDE ER 10 MEQ * Take 1 tablet by mouth once d* NITROGLYCERIN 0.4 MG SUBLINGU* Dissolve 1 tablet under the t* POLYETHYLENE GLYCOL 3350 17 G* Take 17 g by mouth once daily. ASPIRIN 81 MG TABLET,DELAYED * Take 1 tablet by mouth once d* Problem List As Of Date 09/24/2017 Noted Resolved Major depressive disorder, recurrent episode, u*INVALID FOR*11/24/2014 Priority: A More... Anxiety state [F41.1] INVALID FOR* BENIGN HYPERTENSION [I10] INVALID FOR* OSTEOARTHROS NOS-UNSPEC [M19.90] INVALID FOR*02/07/2007 ABNL GLANDULAR PAP SMEAR CERVIX [R87.619] INVALID FOR* HYPERPROLACTINEMIA [E22.9] INVALID FOR* IRREGULAR MENSTRUATION [N92.6] INVALID FOR* ESOPHAGEAL REFLUX [K21.9] INVALID FOR* ACUTE GASTRITIS W/O HEMORRHAGE [K29.00] INVALID FOR*02/07/2007 DIAPHRAGMATIC HERNIA [K44.9] INVALID FOR* Unspecified gastritis and gastroduodenitis with*INVALID FOR*07/24/2016 Localized osteoarthrosis not specified whether *INVALID FOR*07/24/2016 Priority: A More... Pain in joint, site unspecified [M25.50] INVALID FOR*07/24/2016 Routine general medical examination at a health*INVALID FOR*11/29/2011 Class: Chronic More... Routine gynecological examination [Z01.419] INVALID FOR*11/29/2011 Class: Chronic More... More... Morbid obesity [E66.01] INVALID FOR* Priority: Very Severe Hyperprolactinemia [E22.1] INVALID FOR*01/30/2012 Obstructive sleep apnea [G47.33] INVALID FOR* Priority: Severe More... Medication side effects [T88.7XXA] INVALID FOR*08/10/2017 SVT (supraventricular tachycardia) [I47.1] Priority: A Type II or unspecified type diabetes mellitus w*INVALID FOR*04/10/2012 Priority: Moderate More... Congestive heart failure [I50.9] INVALID FOR* Spondylolisthesis [M43.10] INVALID FOR* Lumbar facet arthropathy [M46.96] INVALID FOR* DDD (degenerative disc disease), lumbar [M51.36]INVALID FOR* Diabetes mellitus [E11.9] INVALID FOR*11/24/2014 DDD (degenerative disc disease), cervical [M50.*INVALID FOR* DM (diabetes mellitus) (HCC) [E11.9] INVALID FOR* PMB (postmenopausal bleeding) [N95.0] INVALID FOR* Dysthymia [F34.1] INVALID FOR* Major depressive disorder, recurrent episode, m*INVALID FOR* More... Pain disorder with psychological factors [F45.4*INVALID FOR* Diffuse myofascial pain syndrome [M79.1] INVALID FOR* Bilateral primary osteoarthritis of knee [M17.0]INVALID FOR* Obesity, Class III, BMI >= 40 [E66.01] INVALID FOR* Liver disease [K76.9] INVALID FOR* More... Umbilical hernia without obstruction and withou*INVALID FOR* More... Prescriptions ordered this encounter Disp Refills Start End GLIMEPIRIDE 2 MG TABLET 30 t* 5 09/24/2017 Cmt: Dosage decrease Route: ORAL Sig: Take 1 tablet by mouth once daily. Medications Discontinued During This Encounter glimepiride (AMARYL) 4 mg tablet 30 t* 11 08/10/2017 09/24/2017 Route: ORAL Sig: Take 1 tablet by mouth daily with breakfast. Disc: Reason for discontinue is not on file. Encounter Status:Closed by JAK (PHARMACIST)ARNAV on 09/24/17 PROGRESS Observed: 09/17/2017 Status: COMPLETED Source: [facility] 10:30 AM [facility] REPOSITORY HNO ID: [id number] Author: Kate Brunner LPN Service: (none) Author Type: (none) Type: Progress Notes Filed: 09/17/2017 6:26 PM Note Text: TRANSITION CARE MANAGEMENT (TCM) INITIAL CONTACT [facility] ? Provider Action/FYI: Patient phoned today and says she is doing much better. Gives following BS readings; 09/11/17 before supper 160; 09/12/17 FBS 157; before supper 147; and 09/13/17 FBS 166 ? Needs glucometer. ? ? ? Initial contact with patient post discharge, spoke to patient. Patient identified by name and . ? SUMMARY: -Pt discharged from [facility] on 09/11/17. -Admitted for: cellulitis; sepsis; hyperglycemia ? Do you have a hospital follow up appointment with your PCP? Appointment on 09/17/17 with Apple Abbasi. ? ? MEDICATIONS: Many patients have questions or concerns about their medications once they are home. Were you prescribed any new medications? Yes. Foranex bid; Keflex 500 mg QID; Levemir which has now been changed to Basaglar 30 units at ? Were you told to hold any medications? No Were any of your medications discontinued? No ? Do you have any questions about getting or taking your medications? No ? Your discharge instructions/After visit Summary (AVS) are important in guiding you through the recovery process. Is there anything I might help you understand? No ? Do you have all the necessary equipment and supplies at home? No, follow site specific process to secure durable medical equipment and/or supplies for the patient, handoff to RN/FIRESTOPPER TECHNICIAN, or LIP. Needs glucometer. Message sent to provider. ? Medical records from recent hospitalization: Copied and pasted from [facility]. ? ? Discharge Date and Diagnosis Date of Admission: 09/09/17 Date of Discharge: 09/11/17 ? - Primary Discharge Diagnosis ? Severe sepsis Recurrent cellulitis Hyperglycemia in a type II DM ? ? - Secondary Discharge Diagnosis Chronic Problems ? History of pneumonia (Chronic) JEREMÍAS (obstructive sleep apnea) (Chronic) Lumbosacral neuritis (Chronic) Esophageal reflux (Chronic) Morbid obesity (Chronic) Hypertension (Chronic) Recurrent cellulitis ? ? ? Hospital Course and Treatment ? None Operations: None Procedures: None Summary of Care Provided: ? 57-year-old super morbidly obese patient, BMI 74.4, with past medical history of type II DM, hypertension, recurrent cellulitis comes in with another episode of cellulitis, this time of the posterior thighs and buttocks. ? 1. Severe sepsis secondary to recurrent cellulitis. Patient was admitted with sepsis secondary to recurrent cellulitis, without lactic acidosis. She developed worsening tachycardia as well as further elevation in lactic acid to 2.6 on the floors. Continued on IV fluids and IV antibiotics with improvement. Infectious disease was consulted. She was discharged on Keflex for 10 days ? 2. Recurrent cellulitis, in a morbidly obese patient, likely exacerbation might be uncontrolled blood sugar, on IV antibiotics. Discussed extensively with patient and discussed antiseptic bath, frequent mobilization, daily baths with drying of skin to prevent recurrent cellulitis. ? 3. Type II DM, changes made to admit medications, patient has an appointment with her primary make changes in her medications upcoming in a week or 2. ? 4. Super morbidly obese, candidate for bariatric surgery, advised patient to consider and discuss with her primary care doctor. ? 5. Hypertension, controlled. ? 5. JEREMÍAS on CPAP Discharge Diet: Low fat/ Low Cholesterol, 2000 mg Sodium Diet, Carb Control Diet Discharge Activity: Return to Normal Activity Call your doctor if you observe: Fever of 101 or Higher Home Medications: Medications to take at Discharge ? Aripiprazole 10 mg PO QHS 12/02/14 Aspirin [Adult Low Dose Aspirin EC] 81 mg PO DAILY 12/02/14 Duloxetine HCl 60 mg PO DAILY 12/02/14 Furosemide 20 mg PO DAILY 12/02/14 Linagliptin [Tradjenta] 5 mg PO DAILY 12/02/14 Potassium Chloride [K-Dur] 10 meq PO DAILY 12/02/14 Ranitidine [Zantac] 150 mg PO BID 12/02/14 Spironolactone [Aldactone] 25 mg PO DAILY 12/02/14 Baclofen 10 mg PO BID 08/01/17 Gabapentin [Neurontin] 300 mg PO BID 08/01/17 Primidone [Mysoline] 50 mg PO QHS 08/01/17 traZODone [Desyrel] 50 mg PO QHS PRN 08/01/17 Cetirizine HCl [Zyrtec] 10 mg PO DAILY PRN PRN 09/09/17 Glimepiride [Amaryl] 4 mg PO DAILY 09/09/17 Hydrocodone/Acetaminophen [[place] 5-325 Tablet] 1 each PO BID PRN PRN 09/09/17 Indomethacin [Indocin] 25 mg PO BID PRN 09/09/17 Nitroglycerin [Nitrostat] 0.4 mg SL PRN PRN 09/09/17 Cephalexin [Keflex] 500 mg PO 4X/DAY #40 cap 09/11/17 Insulin Detemir [Levemir] 30 unit SQ QHS #1 09/11/17 L. Acidophilus/L.bulgaricus [Lactobacillus Tablet] 1 ea PO BID #60 tab 09/11/17 ? ? Following Prescrptions Were Given to Patient: L. Acidophilus/L.bulgaricus [Lactobacillus Tablet] 1 ea PO BID #60 tab Cephalexin [Keflex] 500 mg PO 4X/DAY #40 cap Primary Care Physician: Vincent Herbert MD [Primary Care Provider] - Please follow up with your Primary Care Physician in: within 1 week Disposition: Home with Home Health Minutes spent on discharge:: 40 Patient Condition:: Stable ? Medical Necessity ? - Tobacco Use Smoking Status: Former smoker Tobacco Use: Non-smoker ? Meaningful Use Info Meaningful Use Diagnoses (Choose all that apply): None applicable ? Code Visit Inpatient EANDM: 69666 Disch Hosp ? 09/11/17 1526 HOSPITAL/ER FOLLOW UP: Reason for visit: recurrent cellulitis buttock: starts on left, moves to right and into right hip. Has been recent.y scanned with not nidus of infection identified. Which facility: [facility] Date of visit: 09/09-09/11/17 Diagnosis: Sepsis Recurrent cellulitis Hyperglycemia/ DM2 Hx: pneumonia, JEREMÍAS, LS neuritis, GERD, morbid obesity, HTN, recurrent cellulitis Testing done: initial WBC 14.2, subsequent CBC, CMP WNL. Lactic acid 1.7 initially Treatment given: Initially clindamycin. Switched to Levaquin. Discharge on Keflex. Current symptoms: pain in buttock, sore. Fatigued, depressed. Lives alone. Has an aide Daily. Feels she is at end with fatigue and chronic problems. Trouble with movement. Pain in legs, weak. Back pain. Not thought so self injury. Has sisters with whom she is close. Has not contacted them for support or notified of current situation. Medication reconcilitation completed. Component Latest Ref Rng AND Units 11/17/2015 04/24/2016 07/24/2016 07/20/2017 Hemoglobin A1C 4.3 - 5.6 % 6.3 (H) 9.0 (H) 6.7 (H) 7.8 (H) Estimated Average Glucose mg/dL 134 212 146 177 HISTORIES FAMILY HISTORY Problem Relation Age of Onset - Hypertension Mother - Heart Mother concha stroke - Diabetes Mother - Stroke Mother Massive- - Arthritis Mother Osteoarthritis - Hypertension Father - COPD Father - Hypertension Sister 2 - Hypertension Brother 3 - Heart Brother triple bypass at 48 - Heart Maternal Aunt - Heart Maternal Uncle - Diabetes Brother 3 Brother's with diabetes - Diabetes Sister - Arthritis Sister - Arthritis Brother - Arthritis Brother - Arthritis Brother PAST MEDICAL HISTORY Diagnosis Date - Abnormal glandular Papanicolaou smear of cervix 05/30/05 ABNL GLANDULAR PAP SMEAR CERVIX - Acute gastritis without mention of hemorrhage - Anxiety state, unspecified - Arrhythmia - Chronic cholecystitis - Chronic obstructive pulmonary disease (COPD) ([facility]) - Congestive heart failure (HCC) 10/03/2011 - Diabetes ([facility]) - diabetes II 2010 - Diaphragmatic hernia without mention of obstruction or gangrene - Dysthymic disorder Depression (non-psychotic) - Esophageal reflux - Essential hypertension, benign - Generalized OA - Localized osteoarthrosis not specified whether primary or secondary, lower leg - Major depressive disorder, recurrent episode - Mucous polyp of cervix 07/19/05 - Other and unspecified anterior pituitary hyperfunction 10/13/05 elevated prolactin level-was normal in 2011 - PMH - PAST MEDICAL HISTORY OF sleep apnea - PMH - PAST MEDICAL HISTORY OF sleep apnea - SVT (supraventricular tachycardia) (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 PAST SURGICAL HISTORY Procedure Laterality Date - CERVICAL BIOPSY OR EXCISION 07/19/05 endocervical polyp - COLONOSCOP W/ OR W/O BRSH SPEC 01/09/2012 Colonoscopy repeat 10 years - COLPOSCOPY (VAGINOSCOPY) Colposcopy - EGD W/O BRS SPECIMEN W/BX 01/16/07 - EGD W/O OR W/BRUSH/WASH 01/09/2012 EGD - HYSTEROSCOPY DX 12/17/2014 [facility] - LAP CHOLECYSTECT/CHOLANGIOGRAPHY 05/15/08 Social History Marital status: Single Spouse name: Years of education: 9 Number of children: 0 Occupational 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 Social History Main Topics Smoking status: Former Smoker Packs/day: 1.00 Years: 15.00 Types: Cigarettes Quit date: 12/20/1994 Smokeless tobacco: Never Used Alcohol use: No Drug use: No Sexual activity: No ACTIVE PROBLEM LIST Anxiety State Essential Hypertension, Benign ABNL GLANDULAR PAP SMEAR CERVIX HYPERPROLACTINEMIA Irregular Menstrual Cycle Esophageal Reflux Diaphragmatic Hernia Without Mention of Obstruction Or Gangrene Morbid Obesity (Hcc) Obstructive Sleep Apnea Svt (Supraventricular Tachycardia) (Hcc) Congestive Heart Failure (Hcc) Spondylolisthesis Lumbar Facet Arthropathy (Hcc) Ddd (Degenerative Disc Disease), Lumbar Ddd (Degenerative Disc Disease), Cervical Dm (Diabetes Mellitus) (Hcc) Pmb (Postmenopausal Bleeding) Dysthymia Major depressive disorder, recurrent episode, moderate (HCC) Pain Disorder With Psychological Factors Diffuse Myofascial Pain Syndrome Bilateral Primary Osteoarthritis of Knee Obesity, Class III, BMI >= 40 Liver Disease Umbilical Hernia Without Obstruction and Without Gangrene Current Outpatient Prescriptions: indomethacin (INDOCIN) 25 mg capsule Take 1 capsule by mouth twice daily as needed. Disp: 60 capsule Rfl: 2 insulin glargine (BASAGLAR KWIKPEN U-100 INSULIN) 100 unit/mL (3 mL) inpn Inject 30 Units subcutaneously daily at bedtime. Disp: 3 Pen Rfl: 5 nystatin (MYCOSTATIN) cream Apply 1 application to affected area twice daily. Disp: 1 Tube Rfl: 1 glimepiride (AMARYL) 4 mg tablet Take 1 tablet by mouth daily with breakfast. Disp: 30 tablet Rfl: 11 baclofen (LIORESAL) 10 mg tablet Take 1 tablet by mouth twice daily. Disp: 60 tablet Rfl: 1 linagliptin (TRADJENTA) 5 mg tab Take 1 tablet by mouth once daily. Disp: 90 tablet Rfl: 3 spironolactone (ALDACTONE) 25 mg tablet Take 1 tablet by mouth once daily. Disp: 90 tablet Rfl: 3 ranitidine (ZANTAC) 150 mg tablet Take 1 tablet by mouth twice daily. Disp: 180 tablet Rfl: 3 furosemide (LASIX) 20 mg tablet Take 1 tablet by mouth once daily. Disp: 90 tablet Rfl: 3 DULoxetine (CYMBALTA) 60 mg capsule Take 1 capsule by mouth once daily. Disp: 90 capsule Rfl: 3 primidone (MYSOLINE) 50 mg tablet TAKE ONE TABLET ONCE DAILY AT BEDTIME Disp: 30 tablet Rfl: 11 gabapentin (NEURONTIN) 300 mg capsule Take 1 capsule by mouth twice daily for 30 days. Disp: Rfl: HYDROcodone-acetaminophen (NORCO) 5-325 mg per tablet TAKE ONE TABLET TWICE DAILY Disp: Rfl: traZODone (DESYREL) 50 mg tablet Take 0.5 tablets by mouth daily at bedtime. Disp: 30 tablet Rfl: 5 ARIPiprazole (ABILIFY) 10 mg tablet Take 1 tablet by mouth once daily. Disp: 30 tablet Rfl: 5 potassium chloride ER (K-DUR, KLOR-CON) 10 mEq tablet Take 1 tablet by mouth once daily. Disp: 60 tablet Rfl: 5 nitroglycerin sublingual (NITROQUICK) 0.4 mg SL tablet Dissolve 1 tablet under the tongue as needed. FOR CHEST PAIN. IF NO RELIEF CALL 911 Disp: 25 tablet Rfl: 6 polyethylene glycol 3350 (MIRALAX, GLYCOLAX) 17 gram/dose powder Take 17 g by mouth once daily. Disp: 1 Bottle Rfl: 11 aspirin, enteric coated (ECOTRIN LOW STRENGTH) 81 mg EC tablet Take 1 tablet by mouth once daily. Disp: Rfl: 0 Blood-Glucose Meter monitoring kit Glucose Meter of Choice - Kit - Dx: Type 2 DM - Controlled E11.9 Use twice daily as directed Disp: 1 Each Rfl: 0 Insulin Hamlin, Disposable, (BD ULTRA-FINE MADI PEN NEEDLE) 32 gauge x 532 ndle Use one needle for each dose. 1/day. Disp: 100 Each Rfl: 11 blood sugar diagnostic (BLOOD GLUCOSE TEST) test strip Test blood sugar(s) 2 times daily. Dx: Type 2 DM - Controlled E11.9 Insulin: No Disp: 100 Strip Rfl: 11 TRUETEST TEST STRIPS test strip TEST twice a day Disp: 100 Strip Rfl: 11 lancets (TRUEPLUS LANCETS) 30 gauge misc Test twice daily Dx: 250.02 Disp: 200 Each Rfl: 4 No current facility-administered medications for this visit. FAMILIA/ARB MED PRESCRIBED due on 01/14/1978 BLOOD PRESSURE CONTROLLED due on 01/14/1978 DTAP,TDAP,TD(1 - Tdap) due on 02/08/2007 DILATED RETINAL EXAM due on 06/23/2016 MAMMOGRAM due on 11/16/2016 EXAM: BP 130/82 Pulse 80 Temp 36.6 ?C (97.8 ?F) (Tympanic) Resp 20 LMP 12/11/2008 Pleasant morbidly obese woman in no acute distress. Alert and oriented all spheres. depressed affect, tearful Normal cognition. Judgment intact. Speech normal. No deficits to learning or comprehension. Skin warm, dry, pink to lips and nailbeds. Normal turgor. Respirations regular and unlabored. Chest CTA. HRRR without murmur or gallop. Buttock without erythema, induration or focal tender point. No swelling or erythema either hip. Extrem: no clubbing, cyanosis, edema. Extremities are warm and pink with prompt capillary refill. ASSESSMENT/PLAN: 1. Cellulitis of buttock - ICD9: 682.5, ICD10: L03.317 (primary diagnosis) - Continue treatment with Cephalaxin (Keflex) - [facility] - F/u at first sign of change for the worse 2. Liver disease - ICD9: 573.9, ICD10: K76.9 Noted on US: no focal lesion or evidence of impairment in lab 3. Umbilical hernia without obstruction and without gangrene - ICD9: 553.1, ICD10: K42.9 Noted from US/ CT abd/pelvis. asymptomatic 4. Type 2 diabetes mellitus without complication, unspecified whether group home insulin use (HCC) - ICD9: 250.00, ICD10: E11.9 poorly controlled - Continue current medications - Referral to bariatric surgery. Discussed at length. Feels she is finally ready to consider. - Encouraged regular aerobic exercise and weight loss 5. Major depressive disorder, recurrent episode, moderate (HCC) - ICD9: 296.32, ICD10: F33.1 Discussed support systems into which she could tap. Agrees to contact family. Follows with Dr. De León, psychiatrist 6. Obesity, Class III, BMI >= 40 - ICD9: 278.01, ICD10: E66.01 - [facility] F/u 3 months or prn Patient (guardian) expressed understanding of instructions and agrees with plan. CARLOS Sanz Observed: 09/17/2017 Status: COMPLETED Source: [facility] 10:20 AM [facility] REPOSITORY Office Visit (FAMPWS) KATHLEEN KHAN V ([id number]) 1960 F Date Time Provider Department 09/17/17 10:20 AM Sanjay ABBASI (CARLOS) FAMPWS During your visit today, we recorded the following information about you: Temperature Pulse Respiration Blood pressure 97.8 degrees 80/minute 20/minute 130/82 Kate Brunner LPN 09/17/2017 10:30 AM Signed TRANSITION CARE MANAGEMENT (TCM) INITIAL CONTACT [facility] ? Provider Action/FYI: Patient phoned today and says she is doing much better. Gives following BS readings; 09/11/17 before supper 160; 09/12/17 FBS 157; before supper 147; and 09/13/17 FBS 166 ? Needs glucometer. ? ? ? Initial contact with patient post discharge, spoke to patient. Patient identified by name and . ? SUMMARY: -Pt discharged from [facility] on 09/11/17. -Admitted for: cellulitis; sepsis; hyperglycemia ? Do you have a hospital follow up appointment with your PCP? Appointment on 09/17/17 with Apple Abbasi. ? ? MEDICATIONS: Many patients have questions or concerns about their medications once they are home. Were you prescribed any new medications? Yes. Foranex bid; Keflex 500 mg QID; Levemir which has now been changed to Basaglar 30 units at ? Were you told to hold any medications? No Were any of your medications discontinued? No ? Do you have any questions about getting or taking your medications? No ? Your discharge instructions/After visit Summary (AVS) are important in guiding you through the recovery process. Is there anything I might help you understand? No ? Do you have all the necessary equipment and supplies at home? No, follow site specific process to secure durable medical equipment and/or supplies for the patient, handoff to RN/FIRESTOPPER TECHNICIAN, or LIP. Needs glucometer. Message sent to provider. ? Medical records from recent hospitalization: Copied and pasted from [facility]. ? ? Discharge Date and Diagnosis Date of Admission: 09/09/17 Date of Discharge: 09/11/17 ? - Primary Discharge Diagnosis ? Severe sepsis Recurrent cellulitis Hyperglycemia in a type II DM ? ? - Secondary Discharge Diagnosis Chronic Problems ? History of pneumonia (Chronic) JEREMÍAS (obstructive sleep apnea) (Chronic) Lumbosacral neuritis (Chronic) Esophageal reflux (Chronic) Morbid obesity (Chronic) Hypertension (Chronic) Recurrent cellulitis ? ? ? Hospital Course and Treatment ? None Operations: None Procedures: None Summary of Care Provided: ? 57-year-old super morbidly obese patient, BMI 74.4, with past medical history of type II DM, hypertension, recurrent cellulitis comes in with another episode of cellulitis, this time of the posterior thighs and buttocks. ? 1. Severe sepsis secondary to recurrent cellulitis. Patient was admitted with sepsis secondary to recurrent cellulitis, without lactic acidosis. She developed worsening tachycardia as well as further elevation in lactic acid to 2.6 on the floors. Continued on IV fluids and IV antibiotics with improvement. Infectious disease was consulted. She was discharged on Keflex for 10 days ? 2. Recurrent cellulitis, in a morbidly obese patient, likely exacerbation might be uncontrolled blood sugar, on IV antibiotics. Discussed extensively with patient and discussed antiseptic bath, frequent mobilization, daily baths with drying of skin to prevent recurrent cellulitis. ? 3. Type II DM, changes made to admit medications, patient has an appointment with her primary make changes in her medications upcoming in a week or 2. ? 4. Super morbidly obese, candidate for bariatric surgery, advised patient to consider and discuss with her primary care doctor. ? 5. Hypertension, controlled. ? 5. JEREMÍAS on CPAP Discharge Diet: Low fat/ Low Cholesterol, 2000 mg Sodium Diet, Carb Control Diet Discharge Activity: Return to Normal Activity Call your doctor if you observe: Fever of 101 or Higher Home Medications: Medications to take at Discharge ? Aripiprazole 10 mg PO QHS 12/02/14 Aspirin [Adult Low Dose Aspirin EC] 81 mg PO DAILY 12/02/14 Duloxetine HCl 60 mg PO DAILY 12/02/14 Furosemide 20 mg PO DAILY 12/02/14 Linagliptin [Tradjenta] 5 mg PO DAILY 12/02/14 Potassium Chloride [K-Dur] 10 meq PO DAILY 12/02/14 Ranitidine [Zantac] 150 mg PO BID 12/02/14 Spironolactone [Aldactone] 25 mg PO DAILY 12/02/14 Baclofen 10 mg PO BID 08/01/17 Gabapentin [Neurontin] 300 mg PO BID 08/01/17 Primidone [Mysoline] 50 mg PO QHS 08/01/17 traZODone [Desyrel] 50 mg PO QHS PRN 08/01/17 Cetirizine HCl [Zyrtec] 10 mg PO DAILY PRN PRN 09/09/17 Glimepiride [Amaryl] 4 mg PO DAILY 09/09/17 Hydrocodone/Acetaminophen [[place] 5-325 Tablet] 1 each PO BID PRN PRN 09/09/17 Indomethacin [Indocin] 25 mg PO BID PRN 09/09/17 Nitroglycerin [Nitrostat] 0.4 mg SL PRN PRN 09/09/17 Cephalexin [Keflex] 500 mg PO 4X/DAY #40 cap 09/11/17 Insulin Detemir [Levemir] 30 unit SQ QHS #1 09/11/17 L. Acidophilus/L.bulgaricus [Lactobacillus Tablet] 1 ea PO BID #60 tab 09/11/17 ? ? Following Prescrptions Were Given to Patient: L. Acidophilus/L.bulgaricus [Lactobacillus Tablet] 1 ea PO BID #60 tab Cephalexin [Keflex] 500 mg PO 4X/DAY #40 cap Primary Care Physician: Vincent Herbert MD [Primary Care Provider] - Please follow up with your Primary Care Physician in: within 1 week Disposition: Home with Home Health Minutes spent on discharge:: 40 Patient Condition:: Stable ? Medical Necessity ? - Tobacco Use Smoking Status: Former smoker Tobacco Use: Non-smoker ? Meaningful Use Info Meaningful Use Diagnoses (Choose all that apply): None applicable ? Code Visit Inpatient EANDM: 32859 Disch Hosp ? 09/11/17 1526 HOSPITAL/ER FOLLOW UP: Reason for visit: recurrent cellulitis buttock: starts on left, moves to right and into right hip. Has been recent.y scanned with not nidus of infection identified. Which facility: [facility] Date of visit: 09/09-09/11/17 Diagnosis: Sepsis Recurrent cellulitis Hyperglycemia/ DM2 Hx: pneumonia, JEREMÍAS, LS neuritis, GERD, morbid obesity, HTN, recurrent cellulitis Testing done: initial WBC 14.2, subsequent CBC, CMP WNL. Lactic acid 1.7 initially Treatment given: Initially clindamycin. Switched to Levaquin. Discharge on Keflex. Current symptoms: pain in buttock, sore. Fatigued, depressed. Lives alone. Has an aide Daily. Feels she is at end with fatigue and chronic problems. Trouble with movement. Pain in legs, weak. Back pain. Not thought so self injury. Has sisters with whom she is close. Has not contacted them for support or notified of current situation. Medication reconcilitation completed. Component Latest Ref Rng AND Units 11/17/2015 04/24/2016 07/24/2016 07/20/2017 Hemoglobin A1C 4.3 - 5.6 % 6.3 (H) 9.0 (H) 6.7 (H) 7.8 (H) Estimated Average Glucose mg/dL 134 212 146 177 HISTORIES FAMILY HISTORY Problem Relation Age of Onset - Hypertension Mother - Heart Mother concha stroke - Diabetes Mother - Stroke Mother Massive- - Arthritis Mother Osteoarthritis - Hypertension Father - COPD Father - Hypertension Sister 2 - Hypertension Brother 3 - Heart Brother triple bypass at 48 - Heart Maternal Aunt - Heart Maternal Uncle - Diabetes Brother 3 Brother's with diabetes - Diabetes Sister - Arthritis Sister - Arthritis Brother - Arthritis Brother - Arthritis Brother PAST MEDICAL HISTORY Diagnosis Date - Abnormal glandular Papanicolaou smear of cervix 05/30/05 ABNL GLANDULAR PAP SMEAR CERVIX - Acute gastritis without mention of hemorrhage - Anxiety state, unspecified - Arrhythmia - Chronic cholecystitis - Chronic obstructive pulmonary disease (COPD) ([facility]) - Congestive heart failure (HCC) 10/03/2011 - Diabetes ([facility]) - diabetes II 2010 - Diaphragmatic hernia without mention of obstruction or gangrene - Dysthymic disorder Depression (non-psychotic) - Esophageal reflux - Essential hypertension, benign - Generalized OA - Localized osteoarthrosis not specified whether primary or secondary, lower leg - Major depressive disorder, recurrent episode - Mucous polyp of cervix 07/19/05 - Other and unspecified anterior pituitary hyperfunction 10/13/05 elevated prolactin level-was normal in 2011 - PMH - PAST MEDICAL HISTORY OF sleep apnea - PMH - PAST MEDICAL HISTORY OF sleep apnea - SVT (supraventricular tachycardia) (HCC) - 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 PAST SURGICAL HISTORY Procedure Laterality Date - CERVICAL BIOPSY OR EXCISION 07/19/05 endocervical polyp - COLONOSCOP W/ OR W/O BRSH SPEC 01/09/2012 Colonoscopy repeat 10 years - COLPOSCOPY (VAGINOSCOPY) Colposcopy - EGD W/O BRSH SPECIMEN W/BX 01/16/07 - EGD W/O OR W/BRUSH/WASH 01/09/2012 EGD - HYSTEROSCOPY DX 12/17/2014 [facility] - LAP CHOLECYSTECT/CHOLANGIOGRAPHY 05/15/08 Social History Marital status: Single Spouse name: Years of education: 9 Number of children: 0 Occupational 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 Social History Main Topics Smoking status: Former Smoker Packs/day: 1.00 Years: 15.00 Types: Cigarettes Quit date: 12/20/1994 Smokeless tobacco: Never Used Alcohol use: No Drug use: No Sexual activity: No ACTIVE PROBLEM LIST Anxiety State Essential Hypertension, Benign ABNL GLANDULAR PAP SMEAR CERVIX HYPERPROLACTINEMIA Irregular Menstrual Cycle Esophageal Reflux Diaphragmatic Hernia Without Mention of Obstruction Or Gangrene Morbid Obesity (Hcc) Obstructive Sleep Apnea Svt (Supraventricular Tachycardia) (Hcc) Congestive Heart Failure (Hcc) Spondylolisthesis Lumbar Facet Arthropathy (Hcc) Ddd (Degenerative Disc Disease), Lumbar Ddd (Degenerative Disc Disease), Cervical Dm (Diabetes Mellitus) (Hcc) Pmb (Postmenopausal Bleeding) Dysthymia Major depressive disorder, recurrent episode, moderate (HCC) Pain Disorder With Psychological Factors Diffuse Myofascial Pain Syndrome Bilateral Primary Osteoarthritis of Knee Obesity, Class III, BMI >= 40 Liver Disease Umbilical Hernia Without Obstruction and Without Gangrene Current Outpatient Prescriptions: indomethacin (INDOCIN) 25 mg capsule Take 1 capsule by mouth twice daily as needed. Disp: 60 capsule Rfl: 2 insulin glargine (BASAGLAR KWIKPEN U-100 INSULIN) 100 unit/mL (3 mL) inpn Inject 30 Units subcutaneously daily at bedtime. Disp: 3 Pen Rfl: 5 nystatin (MYCOSTATIN) cream Apply 1 application to affected area twice daily. Disp: 1 Tube Rfl: 1 glimepiride (AMARYL) 4 mg tablet Take 1 tablet by mouth daily with breakfast. Disp: 30 tablet Rfl: 11 baclofen (LIORESAL) 10 mg tablet Take 1 tablet by mouth twice daily. Disp: 60 tablet Rfl: 1 linagliptin (TRADJENTA) 5 mg tab Take 1 tablet by mouth once daily. Disp: 90 tablet Rfl: 3 spironolactone (ALDACTONE) 25 mg tablet Take 1 tablet by mouth once daily. Disp: 90 tablet Rfl: 3 ranitidine (ZANTAC) 150 mg tablet Take 1 tablet by mouth twice daily. Disp: 180 tablet Rfl: 3 furosemide (LASIX) 20 mg tablet Take 1 tablet by mouth once daily. Disp: 90 tablet Rfl: 3 DULoxetine (CYMBALTA) 60 mg capsule Take 1 capsule by mouth once daily. Disp: 90 capsule Rfl: 3 primidone (MYSOLINE) 50 mg tablet TAKE ONE TABLET ONCE DAILY AT BEDTIME Disp: 30 tablet Rfl: 11 gabapentin (NEURONTIN) 300 mg capsule Take 1 capsule by mouth twice daily for 30 days. Disp: Rfl: HYDROcodone-acetaminophen (NORCO) 5-325 mg per tablet TAKE ONE TABLET TWICE DAILY Disp: Rfl: traZODone (DESYREL) 50 mg tablet Take 0.5 tablets by mouth daily at bedtime. Disp: 30 tablet Rfl: 5 ARIPiprazole (ABILIFY) 10 mg tablet Take 1 tablet by mouth once daily. Disp: 30 tablet Rfl: 5 potassium chloride ER (K-DUR, KLOR-CON) 10 mEq tablet Take 1 tablet by mouth once daily. Disp: 60 tablet Rfl: 5 nitroglycerin sublingual (NITROQUICK) 0.4 mg SL tablet Dissolve 1 tablet under the tongue as needed. FOR CHEST PAIN. IF NO RELIEF CALL 911 Disp: 25 tablet Rfl: 6 polyethylene glycol 3350 (MIRALAX, GLYCOLAX) 17 gram/dose powder Take 17 g by mouth once daily. Disp: 1 Bottle Rfl: 11 aspirin, enteric coated (ECOTRIN LOW STRENGTH) 81 mg EC tablet Take 1 tablet by mouth once daily. Disp: Rfl: 0 Blood-Glucose Meter monitoring kit Glucose Meter of Choice - Kit - Dx: Type 2 DM - Controlled E11.9 Use twice daily as directed Disp: 1 Each Rfl: 0 Insulin Hamlin, Disposable, (BD ULTRA-FINE MADI PEN NEEDLE) 32 gauge x 532 ndle Use one needle for each dose. 1/day. Disp: 100 Each Rfl: 11 blood sugar diagnostic (BLOOD GLUCOSE TEST) test strip Test blood sugar(s) 2 times daily. Dx: Type 2 DM - Controlled E11.9 Insulin: No Disp: 100 Strip Rfl: 11 TRUETEST TEST STRIPS test strip TEST twice a day Disp: 100 Strip Rfl: 11 lancets (TRUEPLUS LANCETS) 30 gauge misc Test twice daily Dx: 250.02 Disp: 200 Each Rfl: 4 No current facility-administered medications for this visit. FAMILIA/ARB MED PRESCRIBED due on 01/14/1978 BLOOD PRESSURE CONTROLLED due on 01/14/1978 DTAP,TDAP,TD(1 - Tdap) due on 02/08/2007 DILATED RETINAL EXAM due on 06/23/2016 MAMMOGRAM due on 11/16/2016 EXAM: BP 130/82 Pulse 80 Temp 36.6 ?C (97.8 ?F) (Tympanic) Resp 20 LMP 12/11/2008 Pleasant morbidly obese woman in no acute distress. Alert and oriented all spheres. depressed affect, tearful Normal cognition. Judgment intact. Speech normal. No deficits to learning or comprehension. Skin warm, dry, pink to lips and nailbeds. Normal turgor. Respirations regular and unlabored. Chest CTA. HRRR without murmur or gallop. Buttock without erythema, induration or focal tender point. No swelling or erythema either hip. Extrem: no clubbing, cyanosis, edema. Extremities are warm and pink with prompt capillary refill. ASSESSMENT/PLAN: 1. Cellulitis of buttock - ICD9: 682.5, ICD10: L03.317 (primary diagnosis) - Continue treatment with Cephalaxin (Keflex) - [facility] - F/u at first sign of change for the worse 2. Liver disease - ICD9: 573.9, ICD10: K76.9 Noted on US: no focal lesion or evidence of impairment in lab 3. Umbilical hernia without obstruction and without gangrene - ICD9: 553.1, ICD10: K42.9 Noted from US/ CT abd/pelvis. asymptomatic 4. Type 2 diabetes mellitus without complication, unspecified whether group home insulin use (HCC) - ICD9: 250.00, ICD10: E11.9 poorly controlled - Continue current medications - Referral to bariatric surgery. Discussed at length. Feels she is finally ready to consider. - Encouraged regular aerobic exercise and weight loss 5. Major depressive disorder, recurrent episode, moderate (HCC) - ICD9: 296.32, ICD10: F33.1 Discussed support systems into which she could tap. Agrees to contact family. Follows with Dr. De León, psychiatrist 6. Obesity, Class III, BMI >= 40 - ICD9: 278.01, ICD10: E66.01 - [facility] F/u 3 months or prn Patient (guardian) expressed understanding of instructions and agrees with plan. M Angeline Abbasi PA-C Referring Provider: VINCENT HERBERT [[id number]] Allergies As of Date: 09/17/2017 Noted Allergy Reaction LYRICA (PREGABALIN) 08/05/2012 10 - Anaphylaxis Comments: Not sure if accurate. Can take gabapentin. Patient is unsure of reaction. ACCUPRIL (QUINAPRIL HCL) 08/12/2005 5 - Intolerance Comments: dizziness AMLODIPINE 04/24/2008 7 - Swelling Comments: Leg edema ATENOLOL 09/29/2010 7 - Swelling EFFEXOR (VENLAFAXINE HCL) 09/22/2005 Comments: swelling high blood pressure JANUVIA (SITAGLIPTIN) 09/21/2011 8 - GI Upset 14 - Other: See Comments Comments: Patient states she couldn't eat METOPROLOL 09/21/2009 7 - Swelling MOBIC (MELOXICAM) 08/12/2005 8 - GI Upset PROZAC (FLUOXETINE HCL) 08/12/2005 5 - Intolerance Comments: tremor RISPERIDONE 12/22/2009 1 - Mental Status Change SEROQUEL (QUETIAPINE FUMARATE) 10/05/2006 Comments: hypertension,swelling VANCOMYCIN 08/10/2017 9 - Itching 14 - Other: See Comments Comments: red all over VIOXX (ROFECOXIB) 08/12/2005 8 - GI Upset WELLBUTRIN (BUPROPION HCL) 08/12/2005 5 - Intolerance Comments: nightmares Date Reviewed: 09/17/2017 Reviewed by: Kate Brunner LPN - Fully Assessed Reason for Visit: Hospital Follow Up [177] Cmt: [facility] follow admitted 09/09/17 for cellulitis TCM Reason For Visit History Recorded Primary Visit Diagnosis:Cellulitis of buttock [L03.317] Comment:recurrent Other Visit Diagnoses:Liver disease [K76.9] Umbilical hernia without obstruction and without gangrene [K42.9] Type 2 diabetes mellitus without complication, unspecified whether group home insulin use (HCC) [E11.9] Major depressive disorder, recurrent episode, moderate (HCC) [F33.1] Obesity, Class III, BMI >= 40 [E66.01] Order(s):[facility] [[id number]] Order #: [id number]: 1 Prescriptions as of 09/17/2017 Sig: INDOMETHACIN 25 MG CAPSULE Take 1 capsule by mouth twice* INSULIN GLARGINE (U-100) 100 * Inject 30 Units subcutaneousl* NYSTATIN 100,000 UNIT/GRAM TO* Apply 1 application to affect* GLIMEPIRIDE 4 MG TABLET Take 1 tablet by mouth daily * BACLOFEN 10 MG TABLET Take 1 tablet by mouth twice * LINAGLIPTIN 5 MG TABLET Take 1 tablet by mouth once d* SPIRONOLACTONE 25 MG TABLET Take 1 tablet by mouth once d* RANITIDINE 150 MG TABLET Take 1 tablet by mouth twice * FUROSEMIDE 20 MG TABLET Take 1 tablet by mouth once d* DULOXETINE 60 MG CAPSULE,JODI* Take 1 capsule by mouth once * PRIMIDONE 50 MG TABLET TAKE ONE TABLET ONCE DAILY AT* GABAPENTIN 300 MG CAPSULE Take 1 capsule by mouth twice* HYDROCODONE 5 MG-ACETAMINOPHE* TAKE ONE TABLET TWICE DAILY TRAZODONE 50 MG TABLET Take 0.5 tablets by mouth padmini* ARIPIPRAZOLE 10 MG TABLET Take 1 tablet by mouth once d* POTASSIUM CHLORIDE ER 10 MEQ * Take 1 tablet by mouth once d* NITROGLYCERIN 0.4 MG SUBLINGU* Dissolve 1 tablet under the t* POLYETHYLENE GLYCOL 3350 17 G* Take 17 g by mouth once daily. ASPIRIN 81 MG TABLET,DELAYED * Take 1 tablet by mouth once d* BLOOD-GLUCOSE METER KIT Glucose Meter of Choice - Kit* PEN NEEDLE, DIABETIC 32 GAUGE* Use one needle for each dose.* BLOOD SUGAR DIAGNOSTIC STRIPS Test blood sugar(s) 2 times d* TRUETEST TEST STRIPS TEST twice a day LANCETS 30 GAUGE Test twice daily Dx: 250.02 Problem List As Of Date 09/17/2017 Noted Resolved Major depressive disorder, recurrent episode, u*INVALID FOR*11/24/2014 Priority: A More... Anxiety state [F41.1] INVALID FOR* BENIGN HYPERTENSION [I10] INVALID FOR* OSTEOARTHROS NOS-UNSPEC [M19.90] INVALID FOR*02/07/2007 ABNL GLANDULAR PAP SMEAR CERVIX [R87.619] INVALID FOR* HYPERPROLACTINEMIA [E22.9] INVALID FOR* IRREGULAR MENSTRUATION [N92.6] INVALID FOR* ESOPHAGEAL REFLUX [K21.9] INVALID FOR* ACUTE GASTRITIS W/O HEMORRHAGE [K29.00] INVALID FOR*02/07/2007 DIAPHRAGMATIC HERNIA [K44.9] INVALID FOR* Unspecified gastritis and gastroduodenitis with*INVALID FOR*07/24/2016 Localized osteoarthrosis not specified whether *INVALID FOR*07/24/2016 Priority: A More... Pain in joint, site unspecified [M25.50] INVALID FOR*07/24/2016 Routine general medical examination at a health*INVALID FOR*11/29/2011 Class: Chronic More... Routine gynecological examination [Z01.419] INVALID FOR*11/29/2011 Class: Chronic More... More... Morbid obesity [E66.01] INVALID FOR* Priority: Very Severe Hyperprolactinemia [E22.1] INVALID FOR*01/30/2012 Obstructive sleep apnea [G47.33] INVALID FOR* Priority: Severe More... Medication side effects [T88.7XXA] INVALID FOR*08/10/2017 SVT (supraventricular tachycardia) [I47.1] Priority: A Type II or unspecified type diabetes mellitus w*INVALID FOR*04/10/2012 Priority: Moderate More... Congestive heart failure [I50.9] INVALID FOR* Spondylolisthesis [M43.10] INVALID FOR* Lumbar facet arthropathy [M46.96] INVALID FOR* DDD (degenerative disc disease), lumbar [M51.36]INVALID FOR* Diabetes mellitus [E11.9] INVALID FOR*11/24/2014 DDD (degenerative disc disease), cervical [M50.*INVALID FOR* DM (diabetes mellitus) (HCC) [E11.9] INVALID FOR* PMB (postmenopausal bleeding) [N95.0] INVALID FOR* Dysthymia [F34.1] INVALID FOR* Major depressive disorder, recurrent episode, m*INVALID FOR* More... Pain disorder with psychological factors [F45.4*INVALID FOR* Diffuse myofascial pain syndrome [M79.1] INVALID FOR* Bilateral primary osteoarthritis of knee [M17.0]INVALID FOR* Obesity, Class III, BMI >= 40 [E66.01] INVALID FOR* Liver disease [K76.9] INVALID FOR* More... Umbilical hernia without obstruction and withou*INVALID FOR* More... Disposition: Return in about 3 months (around 12/18/2017). Follow-up and Disposition History Recorded Encounter Status:Closed by Sanjay ABBASI PA-C on 09/17/17 HSV1,2/VZV AMPLIF Collected: 09/15/2017 Status: F Source: [place] [facility] 8:56 PM [facility] REPOSITORY TYPE CODE TESTS RESULT OUT OF REFERENCE UNITS RANGE LAB HVZSRC Specimen Lesion Source LAB HRPSV1 HSV Type 1, Negative for HDA Herpes Simplex virus Type 1 by [facility]. LAB HRPSV2 HSV Type 2, Negative for HDA Herpes Simplex virus Type 2 by [facility]. LAB VZOSV V Zoster Virus, Negative for HDA Varicella Zoster virus by [facility]. Performed By: #### HSVVZV #### [facility] [address] [place], [place] [address] PROGRESS Observed: 09/14/2017 Status: COMPLETED Source: [place] 5:55 PM [facility] REPOSITORY HNO ID: [id number] Author: Nani Peterson) González Service: (none) Author Type: Physician Chemical Recovery Operator Type: Progress Notes Filed: 09/14/2017 6:13 PM Note Text: Subjective HPI Pt presents with blisters on her lips for 3 days. She was in the hospital for the last 3 days for cellulitis. She was discharged home on keflex. She was on this in June of 2017 for UTI and had no problems. She denies cold sores in the past. Her lips burn. She has not noticed blisters in her mouth but it is burning. She has had thrush before but this doesn't seen similar. Review of Systems HENT: Blisters on lips All other systems reviewed and are negative. PAST MEDICAL HISTORY Diagnosis Date - Abnormal glandular Papanicolaou smear of cervix 05/30/05 ABNL GLANDULAR PAP SMEAR CERVIX - Acute gastritis without mention of hemorrhage - Anxiety state, unspecified - Arrhythmia - Chronic cholecystitis - Chronic obstructive pulmonary disease (COPD) (HCC) - Congestive heart failure (HCC) 10/03/2011 - Diabetes (HCC) - diabetes II 2010 - Diaphragmatic hernia without mention of obstruction or gangrene - Dysthymic disorder Depression (non-psychotic) - Esophageal reflux - Essential hypertension, benign - Generalized OA - Localized osteoarthrosis not specified whether primary or secondary, lower leg - Major depressive disorder, recurrent episode - Mucous polyp of cervix 07/19/05 - Other and unspecified anterior pituitary hyperfunction 10/13/05 elevated prolactin level-was normal in 2012 - PMH - PAST MEDICAL HISTORY OF sleep apnea - PMH - PAST MEDICAL HISTORY OF sleep apnea - SVT (supraventricular tachycardia) (HCC) - 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 Current Outpatient Prescriptions: Blood-Glucose Meter monitoring kit Glucose Meter of Choice - Kit - Dx: Type 2 DM - Controlled E11.9 Use twice daily as directed Disp: 1 Each Rfl: 0 indomethacin (INDOCIN) 25 mg capsule Take 1 capsule by mouth twice daily as needed. Disp: 60 capsule Rfl: 2 insulin glargine (BASAGLAR KWIKPEN U-100 INSULIN) 100 unit/mL (3 mL) inpn Inject 30 Units subcutaneously daily at bedtime. Disp: 3 Pen Rfl: 5 nystatin (MYCOSTATIN) cream Apply 1 application to affected area twice daily. Disp: 1 Tube Rfl: 1 glimepiride (AMARYL) 4 mg tablet Take 1 tablet by mouth daily with breakfast. Disp: 30 tablet Rfl: 11 baclofen (LIORESAL) 10 mg tablet Take 1 tablet by mouth twice daily. Disp: 60 tablet Rfl: 1 linagliptin (TRADJENTA) 5 mg tab Take 1 tablet by mouth once daily. Disp: 90 tablet Rfl: 3 spironolactone (ALDACTONE) 25 mg tablet Take 1 tablet by mouth once daily. Disp: 90 tablet Rfl: 3 ranitidine (ZANTAC) 150 mg tablet Take 1 tablet by mouth twice daily. Disp: 180 tablet Rfl: 3 furosemide (LASIX) 20 mg tablet Take 1 tablet by mouth once daily. Disp: 90 tablet Rfl: 3 DULoxetine (CYMBALTA) 60 mg capsule Take 1 capsule by mouth once daily. Disp: 90 capsule Rfl: 3 primidone (MYSOLINE) 50 mg tablet TAKE ONE TABLET ONCE DAILY AT BEDTIME Disp: 30 tablet Rfl: 11 Insulin Hamlin, Disposable, (BD ULTRA-FINE MADI PEN NEEDLE) 32 gauge x 532 ndle Use one needle for each dose. 1/day. Disp: 100 Each Rfl: 11 HYDROcodone-acetaminophen (NORCO) 5-325 mg per tablet TAKE ONE TABLET TWICE DAILY Disp: Rfl: blood sugar diagnostic (BLOOD GLUCOSE TEST) test strip Test blood sugar(s) 2 times daily. Dx: Type 2 DM - Controlled E11.9 Insulin: No Disp: 100 Strip Rfl: 11 TRUETEST TEST STRIPS test strip TEST twice a day Disp: 100 Strip Rfl: 11 lancets (TRUEPLUS LANCETS) 30 gauge misc Test twice daily Dx: 250.02 Disp: 200 Each Rfl: 4 traZODone (DESYREL) 50 mg tablet Take 0.5 tablets by mouth daily at bedtime. Disp: 30 tablet Rfl: 5 ARIPiprazole (ABILIFY) 10 mg tablet Take 1 tablet by mouth once daily. Disp: 30 tablet Rfl: 5 potassium chloride ER (K-DUR, KLOR-CON) 10 mEq tablet Take 1 tablet by mouth once daily. Disp: 60 tablet Rfl: 5 nitroglycerin sublingual (NITROQUICK) 0.4 mg SL tablet Dissolve 1 tablet under the tongue as needed. FOR CHEST PAIN. IF NO RELIEF CALL 911 Disp: 25 tablet Rfl: 6 polyethylene glycol 3350 (MIRALAX, GLYCOLAX) 17 gram/dose powder Take 17 g by mouth once daily. Disp: 1 Bottle Rfl: 11 aspirin, enteric coated (ECOTRIN LOW STRENGTH) 81 mg EC tablet Take 1 tablet by mouth once daily. Disp: Rfl: 0 valACYclovir (VALTREX) 1 gram tab Take 2 tablets by mouth twice daily for 1 day. Disp: 4 tablet Rfl: 0 gabapentin (NEURONTIN) 300 mg capsule Take 1 capsule by mouth twice daily for 30 days. Disp: Rfl: No current facility-administered medications for this visit. PAST SURGICAL HISTORY Procedure Laterality Date - CERVICAL BIOPSY OR EXCISION 07/19/05 endocervical polyp - COLONOSCOP W/ OR W/O [facility] SPEC 01/09/2012 Colonoscopy repeat 10 years - COLPOSCOPY (VAGINOSCOPY) Colposcopy - EGD W/O [facility] SPECIMEN W/BX 01/16/07 - EGD W/O OR W/BRUSH/WASH 01/09/2012 EGD - HYSTEROSCOPY DX 12/17/2014 [facility] - LAP CHOLECYSTECT/CHOLANGIOGRAPHY 05/15/08 FAMILY HISTORY Problem Relation Age of Onset - Hypertension Mother - Heart Mother concha stroke - Diabetes Mother - Stroke Mother Massive- - Arthritis Mother Osteoarthritis - Hypertension Father - COPD Father - Hypertension Sister 2 - Hypertension Brother 3 - Heart Brother triple bypass at 48 - Heart Maternal Aunt - Heart Maternal Uncle - Diabetes Brother 3 Brother's with diabetes - Diabetes Sister - Arthritis Sister - Arthritis Brother - Arthritis Brother - Arthritis Brother Social History Substance Use Topics - Smoking status: Former Smoker Packs/day: 1.00 Years: 15.00 Types: Cigarettes Quit date: 12/20/1994 - Smokeless tobacco: Never Used - Alcohol use No BP 124/76 Pulse 80 Temp 37 ?C (98.6 ?F) (Tympanic) Resp 18 LMP 12/11/2008 Objective Physical Exam Constitutional: She is oriented to person, place, and time and well-developed, well-nourished, and in no distress. HENT: Head: Normocephalic and atraumatic. Right Ear: Tympanic membrane, external ear and ear canal normal. Left Ear: Tympanic membrane, external ear and ear canal normal. Nose: Nose normal. Mouth/Throat: Pt has two vesicles on her lower lip consistent with cold sores. No lesions inside the mouth. No lesions on posterior oropharynx. Cardiovascular: Normal rate, regular rhythm and normal heart sounds. Pulmonary/Chest: Effort normal and breath sounds normal. Neurological: She is alert and oriented to person, place, and time. Skin: Skin is warm and dry. Psychiatric: Affect and judgment normal. Nursing note and vitals reviewed. ASSESSMENT/PLAN: 1. Primary herpes simplex infection of oral region - ICD9: 054.2, ICD10: B00.2 Pt lesions appear to be cold sores. I did swab one and sent to lab. I started her on valtrex for 2 doses. No signs of louis nadya's, patient has been on this antibiotic recently and had no issues. - HSV 1,2/VZV AMP MOLECULAR DETECT CARLOS Schuler Observed: 09/14/2017 Status: COMPLETED Source: [place] 5:45 PM [facility] REPOSITORY [facility] KATHLEEN KHAN V ([id number]) 1960 F Date Time Provider Department 09/14/17 5:45 PM NANI RODRÍGUEZ ([facility]) [facility] During your visit today, we recorded the following information about you: Temperature Pulse Respiration Blood pressure 98.6 degrees 80/minute 18/minute 124/76 Nani Rodríguez PA-C 09/14/2017 6:13 PM Signed Subjective HPI Pt presents with blisters on her lips for 3 days. She was in the hospital for the last 3 days for cellulitis. She was discharged home on keflex. She was on this in June of 2017 for UTI and had no problems. She denies cold sores in the past. Her lips burn. She has not noticed blisters in her mouth but it is burning. She has had thrush before but this doesn't seen similar. Review of Systems HENT: Blisters on lips All other systems reviewed and are negative. PAST MEDICAL HISTORY Diagnosis Date - Abnormal glandular Papanicolaou smear of cervix 05/30/05 ABNL GLANDULAR PAP SMEAR CERVIX - Acute gastritis without mention of hemorrhage - Anxiety state, unspecified - Arrhythmia - Chronic cholecystitis - Chronic obstructive pulmonary disease (COPD) ([facility]) - Congestive heart failure (HCC) 10/03/2011 - Diabetes ([facility]) - diabetes II 2010 - Diaphragmatic hernia without mention of obstruction or gangrene - Dysthymic disorder Depression (non-psychotic) - Esophageal reflux - Essential hypertension, benign - Generalized OA - Localized osteoarthrosis not specified whether primary or secondary, lower leg - Major depressive disorder, recurrent episode - Mucous polyp of cervix 07/19/05 - Other and unspecified anterior pituitary hyperfunction 10/13/05 elevated prolactin level-was normal in 2011 - PMH - PAST MEDICAL HISTORY OF sleep apnea - PMH - PAST MEDICAL HISTORY OF sleep apnea - SVT (supraventricular tachycardia) (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 Current Outpatient Prescriptions: Blood-Glucose Meter monitoring kit Glucose Meter of Choice - Kit - Dx: Type 2 DM - Controlled E11.9 Use twice daily as directed Disp: 1 Each Rfl: 0 indomethacin (INDOCIN) 25 mg capsule Take 1 capsule by mouth twice daily as needed. Disp: 60 capsule Rfl: 2 insulin glargine (BASAGLAR KWIKPEN U-100 INSULIN) 100 unit/mL (3 mL) inpn Inject 30 Units subcutaneously daily at bedtime. Disp: 3 Pen Rfl: 5 nystatin (MYCOSTATIN) cream Apply 1 application to affected area twice daily. Disp: 1 Tube Rfl: 1 glimepiride (AMARYL) 4 mg tablet Take 1 tablet by mouth daily with breakfast. Disp: 30 tablet Rfl: 11 baclofen (LIORESAL) 10 mg tablet Take 1 tablet by mouth twice daily. Disp: 60 tablet Rfl: 1 linagliptin (TRADJENTA) 5 mg tab Take 1 tablet by mouth once daily. Disp: 90 tablet Rfl: 3 spironolactone (ALDACTONE) 25 mg tablet Take 1 tablet by mouth once daily. Disp: 90 tablet Rfl: 3 ranitidine (ZANTAC) 150 mg tablet Take 1 tablet by mouth twice daily. Disp: 180 tablet Rfl: 3 furosemide (LASIX) 20 mg tablet Take 1 tablet by mouth once daily. Disp: 90 tablet Rfl: 3 DULoxetine (CYMBALTA) 60 mg capsule Take 1 capsule by mouth once daily. Disp: 90 capsule Rfl: 3 primidone (MYSOLINE) 50 mg tablet TAKE ONE TABLET ONCE DAILY AT BEDTIME Disp: 30 tablet Rfl: 11 Insulin Hamlin, Disposable, (BD ULTRA-FINE MADI PEN NEEDLE) 32 gauge x 5/32 ndle Use one needle for each dose. 1/day. Disp: 100 Each Rfl: 11 HYDROcodone-acetaminophen (NORCO) 5-325 mg per tablet TAKE ONE TABLET TWICE DAILY Disp: Rfl: blood sugar diagnostic (BLOOD GLUCOSE TEST) test strip Test blood sugar(s) 2 times daily. Dx: Type 2 DM - Controlled E11.9 Insulin: No Disp: 100 Strip Rfl: 11 TRUETEST TEST STRIPS test strip TEST twice a day Disp: 100 Strip Rfl: 11 lancets (TRUEPLUS LANCETS) 30 gauge misc Test twice daily Dx: 250.02 Disp: 200 Each Rfl: 4 traZODone (DESYREL) 50 mg tablet Take 0.5 tablets by mouth daily at bedtime. Disp: 30 tablet Rfl: 5 ARIPiprazole (ABILIFY) 10 mg tablet Take 1 tablet by mouth once daily. Disp: 30 tablet Rfl: 5 potassium chloride ER (K-DUR, KLOR-CON) 10 mEq tablet Take 1 tablet by mouth once daily. Disp: 60 tablet Rfl: 5 nitroglycerin sublingual (NITROQUICK) 0.4 mg SL tablet Dissolve 1 tablet under the tongue as needed. FOR CHEST PAIN. IF NO RELIEF CALL 911 Disp: 25 tablet Rfl: 6 polyethylene glycol 3350 (MIRALAX, GLYCOLAX) 17 gram/dose powder Take 17 g by mouth once daily. Disp: 1 Bottle Rfl: 11 aspirin, enteric coated (ECOTRIN LOW STRENGTH) 81 mg EC tablet Take 1 tablet by mouth once daily. Disp: Rfl: 0 valACYclovir (VALTREX) 1 gram tab Take 2 tablets by mouth twice daily for 1 day. Disp: 4 tablet Rfl: 0 gabapentin (NEURONTIN) 300 mg capsule Take 1 capsule by mouth twice daily for 30 days. Disp: Rfl: No current facility-administered medications for this visit. PAST SURGICAL HISTORY Procedure Laterality Date - CERVICAL BIOPSY OR EXCISION 07/19/05 endocervical polyp - COLONOSCOP W/ OR W/O [facility] SPEC 01/09/2012 Colonoscopy repeat 10 years - COLPOSCOPY (VAGINOSCOPY) Colposcopy - EGD W/O [facility] SPECIMEN W/BX 01/16/07 - EGD W/O OR W/BRUSH/WASH 01/09/2012 EGD - HYSTEROSCOPY DX 12/17/2014 [facility] - LAP CHOLECYSTECT/CHOLANGIOGRAPHY 05/15/08 FAMILY HISTORY Problem Relation Age of Onset - Hypertension Mother - Heart Mother concha stroke - Diabetes Mother - Stroke Mother Massive- - Arthritis Mother Osteoarthritis - Hypertension Father - COPD Father - Hypertension Sister 2 - Hypertension Brother 3 - Heart Brother triple bypass at 48 - Heart Maternal Aunt - Heart Maternal Uncle - Diabetes Brother 3 Brother's with diabetes - Diabetes Sister - Arthritis Sister - Arthritis Brother - Arthritis Brother - Arthritis Brother Social History Substance Use Topics - Smoking status: Former Smoker Packs/day: 1.00 Years: 15.00 Types: Cigarettes Quit date: 12/20/1994 - Smokeless tobacco: Never Used - Alcohol use No BP 124/76 Pulse 80 Temp 37 ?C (98.6 ?F) (Tympanic) Resp 18 LMP 12/11/2008 Objective Physical Exam Constitutional: She is oriented to person, place, and time and well-developed, well-nourished, and in no distress. HENT: Head: Normocephalic and atraumatic. Right Ear: Tympanic membrane, external ear and ear canal normal. Left Ear: Tympanic membrane, external ear and ear canal normal. Nose: Nose normal. Mouth/Throat: Pt has two vesicles on her lower lip consistent with cold sores. No lesions inside the mouth. No lesions on posterior oropharynx. Cardiovascular: Normal rate, regular rhythm and normal heart sounds. Pulmonary/Chest: Effort normal and breath sounds normal. Neurological: She is alert and oriented to person, place, and time. Skin: Skin is warm and dry. Psychiatric: Affect and judgment normal. Nursing note and vitals reviewed. ASSESSMENT/PLAN: 1. Primary herpes simplex infection of oral region - ICD9: 054.2, ICD10: B00.2 Pt lesions appear to be cold sores. I did swab one and sent to lab. I started her on valtrex for 2 doses. No signs of louis nadya's, patient has been on this antibiotic recently and had no issues. - HSV 1,2/VZV AMP MOLECULAR DETECT Nani Rodríguez PA-C Referring Provider: SELF [200] Allergies As of Date: 09/14/2017 Noted Allergy Reaction LYRICA (PREGABALIN) 08/05/2012 10 - Anaphylaxis Comments: Not sure if accurate. Can take gabapentin. Patient is unsure of reaction. ACCUPRIL (QUINAPRIL HCL) 08/12/2005 5 - Intolerance Comments: dizziness AMLODIPINE 04/24/2008 7 - Swelling Comments: Leg edema ATENOLOL 09/29/2010 7 - Swelling EFFEXOR (VENLAFAXINE HCL) 09/22/2005 Comments: swelling high blood pressure JANUVIA (SITAGLIPTIN) 09/21/2011 8 - GI Upset 14 - Other: See Comments Comments: Patient states she couldn't eat METOPROLOL 09/21/2009 7 - Swelling MOBIC (MELOXICAM) 08/12/2005 8 - GI Upset PROZAC (FLUOXETINE HCL) 08/12/2005 5 - Intolerance Comments: tremor RISPERIDONE 12/22/2009 1 - Mental Status Change SEROQUEL (QUETIAPINE FUMARATE) 10/05/2006 Comments: hypertension,swelling VANCOMYCIN 08/10/2017 9 - Itching 14 - Other: See Comments Comments: red all over VIOXX (ROFECOXIB) 08/12/2005 8 - GI Upset WELLBUTRIN (BUPROPION HCL) 08/12/2005 5 - Intolerance Comments: nightmares Date Reviewed: 09/14/2017 Reviewed by: Winnie Johnson Ma - Fully Assessed Reason for Visit: Mouth Sores [839] Cmt: x 3 days, did start keflex on 09/11 for cellitis Primary Visit Diagnosis:Primary herpes simplex infection of oral region [B00.2] Order(s):valACYclovir (VALTREX) 1 gram tabTake 2 tablets by mouth twice daily for 1 day.Disp: 4 tabletRfl: 0 HSV 1,2/VZV AMP MOLECULAR DETECT [SQHSVVZV] Order #: [id number] FUTURE Prescriptions as of 09/14/2017 Sig: BLOOD-GLUCOSE METER KIT Glucose Meter of Choice - Kit* INDOMETHACIN 25 MG CAPSULE Take 1 capsule by mouth twice* INSULIN GLARGINE (U-100) 100 * Inject 30 Units subcutaneousl* NYSTATIN 100,000 UNIT/GRAM TO* Apply 1 application to affect* GLIMEPIRIDE 4 MG TABLET Take 1 tablet by mouth daily * BACLOFEN 10 MG TABLET Take 1 tablet by mouth twice * LINAGLIPTIN 5 MG TABLET Take 1 tablet by mouth once d* SPIRONOLACTONE 25 MG TABLET Take 1 tablet by mouth once d* RANITIDINE 150 MG TABLET Take 1 tablet by mouth twice * FUROSEMIDE 20 MG TABLET Take 1 tablet by mouth once d* DULOXETINE 60 MG CAPSULE,JODI* Take 1 capsule by mouth once * PRIMIDONE 50 MG TABLET TAKE ONE TABLET ONCE DAILY AT* PEN NEEDLE, DIABETIC 32 GAUGE* Use one needle for each dose.* HYDROCODONE 5 MG-ACETAMINOPHE* TAKE ONE TABLET TWICE DAILY BLOOD SUGAR DIAGNOSTIC STRIPS Test blood sugar(s) 2 times d* TRUETEST TEST STRIPS TEST twice a day LANCETS 30 GAUGE Test twice daily Dx: 250.02 TRAZODONE 50 MG TABLET Take 0.5 tablets by mouth padmini* ARIPIPRAZOLE 10 MG TABLET Take 1 tablet by mouth once d* POTASSIUM CHLORIDE ER 10 MEQ * Take 1 tablet by mouth once d* NITROGLYCERIN 0.4 MG SUBLINGU* Dissolve 1 tablet under the t* POLYETHYLENE GLYCOL 3350 17 G* Take 17 g by mouth once daily. ASPIRIN 81 MG TABLET,DELAYED * Take 1 tablet by mouth once d* VALACYCLOVIR 1 GRAM TABLET Take 2 tablets by mouth twice* GABAPENTIN 300 MG CAPSULE Take 1 capsule by mouth twice* Problem List As Of Date 09/14/2017 Noted Resolved Major depressive disorder, recurrent episode, u*INVALID FOR*11/24/2014 Priority: A More... Anxiety state [F41.1] INVALID FOR* BENIGN HYPERTENSION [I10] INVALID FOR* OSTEOARTHROS NOS-UNSPEC [M19.90] INVALID FOR*02/07/2007 ABNL GLANDULAR PAP SMEAR CERVIX [R87.619] INVALID FOR* HYPERPROLACTINEMIA [E22.9] INVALID FOR* IRREGULAR MENSTRUATION [N92.6] INVALID FOR* ESOPHAGEAL REFLUX [K21.9] INVALID FOR* ACUTE GASTRITIS W/O HEMORRHAGE [K29.00] INVALID FOR*02/07/2007 DIAPHRAGMATIC HERNIA [K44.9] INVALID FOR* Unspecified gastritis and gastroduodenitis with*INVALID FOR*07/24/2016 Localized osteoarthrosis not specified whether *INVALID FOR*07/24/2016 Priority: A More... Pain in joint, site unspecified [M25.50] INVALID FOR*07/24/2016 Routine general medical examination at a health*INVALID FOR*11/29/2011 Class: Chronic More... Routine gynecological examination [Z01.419] INVALID FOR*11/29/2011 Class: Chronic More... More... Morbid obesity [E66.01] INVALID FOR* Priority: Very Severe Hyperprolactinemia [E22.1] INVALID FOR*01/30/2012 Obstructive sleep apnea [G47.33] INVALID FOR* Priority: Severe More... Medication side effects [T88.7XXA] INVALID FOR*08/10/2017 SVT (supraventricular tachycardia) [I47.1] Priority: A Type II or unspecified type diabetes mellitus w*INVALID FOR*04/10/2012 Priority: Moderate More... Congestive heart failure [I50.9] INVALID FOR* Spondylolisthesis [M43.10] INVALID FOR* Lumbar facet arthropathy [M46.96] INVALID FOR* DDD (degenerative disc disease), lumbar [M51.36]INVALID FOR* Diabetes mellitus [E11.9] INVALID FOR*11/24/2014 DDD (degenerative disc disease), cervical [M50.*INVALID FOR* DM (diabetes mellitus) (HCC) [E11.9] INVALID FOR* PMB (postmenopausal bleeding) [N95.0] INVALID FOR* Dysthymia [F34.1] INVALID FOR* Major depressive disorder, recurrent episode, m*INVALID FOR* More... Pain disorder with psychological factors [F45.4*INVALID FOR* Diffuse myofascial pain syndrome [M79.1] INVALID FOR* Bilateral primary osteoarthritis of knee [M17.0]INVALID FOR* Obesity, Class III, BMI >= 40 [E66.01] INVALID FOR* Prescriptions ordered this encounter Disp Refills Start End VALACYCLOVIR 1 GRAM TABLET 4 ta* 0 09/14/2017 09/15/2017 Route: ORAL Sig: Take 2 tablets by mouth twice daily for 1 day. Encounter Status:Closed by NANI RODRÍGUEZ PA-C on 09/14/17 DISCHARGE SUMMARY Observed: 09/11/2017 Status: F Source: [place] 3:26 PM [facility] REPOSITORY [facility] Medical Records Department [address] [place] [address] Discharge Summary 09/11/17 1043 MR#: [id number] Acct: [id number] Name: KATHLEEN KHAN V Rep #: [id number] : 1960 57 From: Sadaf Honeycutt MD PCP: Vincent Herbert MD Status: DIS IN Y Location: [facility] [place] [id number] Discharge Date and Diagnosis Date of Admission: 09/09/17 Date of Discharge: 09/11/17 - Primary Discharge Diagnosis Severe sepsis Recurrent cellulitis Hyperglycemia in a type II DM - Secondary Discharge Diagnosis Chronic Problems History of pneumonia (Chronic) JEREMÍAS (obstructive sleep apnea) (Chronic) Lumbosacral neuritis (Chronic) Esophageal reflux (Chronic) Morbid obesity (Chronic) Hypertension (Chronic) Recurrent cellulitis Hospital Course and Treatment None Operations: None Procedures: None Summary of Care Provided: 57-year-old super morbidly obese patient, BMI 74.4, with past medical history of type II DM, hypertension, recurrent cellulitis comes in with another episode of cellulitis, this time of the posterior thighs and buttocks. 1. Severe sepsis secondary to recurrent cellulitis. Patient was admitted with sepsis secondary to recurrent cellulitis, without lactic acidosis. She developed worsening tachycardia as well as further elevation in lactic acid to 2.6 on the floors. Continued on IV fluids and IV antibiotics with improvement. Infectious disease was consulted. She was discharged on Keflex for 10 days 2. Recurrent cellulitis, in a morbidly obese patient, likely exacerbation might be uncontrolled blood sugar, on IV antibiotics. Discussed extensively with patient and discussed antiseptic bath, frequent mobilization, daily baths with drying of skin to prevent recurrent cellulitis. 3. Type II DM, changes made to admit medications, patient has an appointment with her primary make changes in her medications upcoming in a week or 2. 4. Super morbidly obese, candidate for bariatric surgery, advised patient to consider and discuss with her primary care doctor. 5. Hypertension, controlled. 5. JEREMÍAS on CPAP Discharge Diet: Low fat/ Low Cholesterol, 2000 mg Sodium Diet, Carb Control Diet Discharge Activity: Return to Normal Activity Call your doctor if you observe: Fever of 101 or Higher Home Medications: Medications to take at Discharge Aripiprazole 10 mg PO QHS 12/02/14 Aspirin [Adult Low Dose Aspirin EC] 81 mg PO DAILY 12/02/14 Duloxetine HCl 60 mg PO DAILY 12/02/14 Furosemide 20 mg PO DAILY 12/02/14 Linagliptin [Tradjenta] 5 mg PO DAILY 12/02/14 Potassium Chloride [K-Dur] 10 meq PO DAILY 12/02/14 Ranitidine [Zantac] 150 mg PO BID 12/02/14 Spironolactone [Aldactone] 25 mg PO DAILY 12/02/14 Baclofen 10 mg PO BID 08/01/17 Gabapentin [Neurontin] 300 mg PO BID 08/01/17 Primidone [Mysoline] 50 mg PO QHS 08/01/17 traZODone [Desyrel] 50 mg PO QHS PRN 08/01/17 Cetirizine HCl [Zyrtec] 10 mg PO DAILY PRN PRN 09/09/17 Glimepiride [Amaryl] 4 mg PO DAILY 09/09/17 Hydrocodone/Acetaminophen [[place] 5-325 Tablet] 1 each PO BID PRN PRN 09/09/17 Indomethacin [Indocin] 25 mg PO BID PRN 09/09/17 Nitroglycerin [Nitrostat] 0.4 mg SL PRN PRN 09/09/17 Cephalexin [Keflex] 500 mg PO 4X/DAY #40 cap 09/11/17 Insulin Detemir [Levemir] 30 unit SQ QHS #1 09/11/17 L. Acidophilus/L.bulgaricus [Lactobacillus Tablet] 1 ea PO BID #60 tab 09/11/17 Following Prescrptions Were Given to Patient: L. Acidophilus/L.bulgaricus [Lactobacillus Tablet] 1 ea PO BID #60 tab Cephalexin [Keflex] 500 mg PO 4X/DAY #40 cap Primary Care Physician: Vincent Herbert MD [Primary Care Provider] - Please follow up with your Primary Care Physician in: within 1 week Disposition: Home with Home Health Minutes spent on discharge:: 40 Patient Condition:: Stable Medical Necessity - Tobacco Use Smoking Status: Former smoker Tobacco Use: Non-smoker Meaningful Use Info Meaningful Use Diagnoses (Choose all that apply): None applicable Code Visit Inpatient E AND M: 43804 Disch Hosp 09/11/17 1526 <Electronically signed by Sadaf Honeycutt MD> Date Sadaf Honeycutt MD Cosigner Signature (if applicable): Date CC: Sadaf Honeycutt MD; Vincent Herbert MD Signed 12 LEAD ELECTROCARDIOGRAM Observed: 09/11/2017 Status: F Source: [place] 1:03 PM [facility] REPOSITORY [facility] Cardiovascular Services [address] [place] [address] [place] [address] 12 Lead EKG 09/09/17 0245 MR#: [id number] Acct: [id number] Name: KATHLEEN KHAN V Rep #: [id number] : 1960 57 From: Tristan Maloney MD Attending Dr: Sadaf Honeycutt MD Status: ADM IN Ordering Dr: Claudia Gerardo Date: 09/09/17 Location: [facility] [place] Sex: F C Admitted: 09/09/17 Test Reason : WEAKNESS Blood Pressure : / mmHG Vent. Rate : 110 BPM Atrial Rate : 110 BPM P-R Int : 154 ms QRS Dur : 076 ms QT Int : 318 ms P-R-T Axes : 047 011 040 degrees QTc Int : 430 ms Sinus tachycardia Otherwise normal ECG Confirmed by MICHEL SIMS, TRISTAN ([id number]), editor index KO ROMERO ([id number]) on 09/11/2017 1:03:23 PM Referred By: AKIN Confirmed By:TRISTAN MALONEY MD 09/11/17 1303 Date Tristan Maloney MD CC: Sadaf Honeycutt MD; Claudia Gerardo; Vincent Herbert MD Signed BEDSIDE GLUCOSE Collected: 09/11/2017 Status: F Source: [place] 11:40 AM [facility] REPOSITORY TYPE CODE TESTS RESULT OUT OF REFERENCE UNITS RANGE LAB L501.080 70-110 mg/dL High BEDSIDE GLU 230 Result Comment: MANAGEMENT OF PATIENT CARE PER NURSING PROTOCOL Performed By: #### L501.080 #### [facility] Point of Care [address] [facility] [place] [address] DISCHARGE INSTRUCTION Observed: 09/11/2017 Status: F Source: [place] 10:43 AM [facility] REPOSITORY [facility] Medical Records Department [address] [place] [address] Instructions for Home/Discharge Instructions 09/11/17 1037 MR#: [id number] Acct: [id number] Name: KATHLEEN KHAN V Rep #: [id number] : 1960 57 From: Sadaf Honeycutt MD PCP: Vincent Herbert MD Status: ADM IN - Discharge Diagnoses Reason(s) for Visit for Discharge Instructions: Fever, chills, redness of posterior thigh and buttocks You will use the following diet at home:: Calorie/Carbohydrate Controlled (specify 1200, 1400, etc), Cardiac Your food should be the consistency of: Regular Your liquids should be the consistency of: Regular/Thin Discharge Activity: Return to Normal Activity Call your doctor if you observe: Fever of 101 or Higher Additional Instructions: Complete all your antibiotics. A probiotic has been added to your medications. Take it whilst on antibiotics. Follow-up with your primary care doctor within 1 week. You need to maintain skin hygiene with daily baths and drying of your skin completely. Changes have been made to your insulin. Follow-up with your primary doctor for changes. Your primary doctor should consider referring to bariatric/weight loss management programs to assist you with weight loss. Allergies/Adverse Reactions: Allergies vancomycin Allergy (Verified 09/09/17 02:33) Rash amlodipine Adverse Reaction (Verified 09/09/17 02:33) Unknown atenolol Adverse Reaction (Verified 09/09/17 02:33) Unknown bupropion HCl [From Wellbutrin] Adverse Reaction (Verified 09/09/17 02:33) Unknown fluoxetine HCl [From Prozac] Adverse Reaction (Verified 09/09/17 02:33) Unknown meloxicam [From Mobic] Adverse Reaction (Verified 09/09/17 02:33) Unknown metoprolol Adverse Reaction (Verified 09/09/17 02:33) Unknown pregabalin [From Lyrica] Adverse Reaction (Verified 09/09/17 02:33) Unknown quetiapine fumarate [From Seroquel] Adverse Reaction (Verified 09/09/17 02:33) Unknown quinapril HCl [From Accupril] Adverse Reaction (Verified 09/09/17 02:33) Unknown risperidone Adverse Reaction (Verified 09/09/17 02:33) Unknown rofecoxib [From Vioxx] Adverse Reaction (Verified 09/09/17 02:33) Unknown sitagliptin phosphate [From Januvia] Adverse Reaction (Verified 09/09/17 02:33) Unknown venlafaxine HCl [From Effexor] Adverse Reaction (Verified 09/09/17 02:33) Unknown Medications to take at Discharge Aripiprazole 10 mg PO QHS 12/02/14 Aspirin [Adult Low Dose Aspirin EC] 81 mg PO DAILY 12/02/14 Duloxetine HCl 60 mg PO DAILY 12/02/14 Furosemide 20 mg PO DAILY 12/02/14 Linagliptin [Tradjenta] 5 mg PO DAILY 12/02/14 Potassium Chloride [K-Dur] 10 meq PO DAILY 12/02/14 Ranitidine [Zantac] 150 mg PO BID 12/02/14 Spironolactone [Aldactone] 25 mg PO DAILY 12/02/14 Baclofen 10 mg PO BID 08/01/17 Gabapentin [Neurontin] 300 mg PO BID 08/01/17 Primidone [Mysoline] 50 mg PO QHS 08/01/17 traZODone [Desyrel] 50 mg PO QHS PRN 08/01/17 Cetirizine HCl [Zyrtec] 10 mg PO DAILY PRN PRN 09/09/17 Glimepiride [Amaryl] 4 mg PO DAILY 09/09/17 Hydrocodone/Acetaminophen [[place] 5-325 Tablet] 1 each PO BID PRN PRN 09/09/17 Indomethacin [Indocin] 25 mg PO BID PRN 09/09/17 Nitroglycerin [Nitrostat] 0.4 mg SL PRN PRN 09/09/17 Cephalexin [Keflex] 500 mg PO 4X/DAY #40 cap 09/11/17 Insulin Detemir [Levemir] 30 unit SQ QHS #1 09/11/17 L. Acidophilus/L.bulgaricus [Lactobacillus Tablet] 1 ea PO BID #60 tab 09/11/17 The following prescriptions were given: L. Acidophilus/L.bulgaricus [Lactobacillus Tablet] 1 ea PO BID #60 tab Cephalexin [Keflex] 500 mg PO 4X/DAY #40 cap Primary Care Physician: Vincent Herbert MD [Primary Care Provider] - Please follow up with your Primary Care Physician in: within 1 week Test Results: Test results from this visit will be discussed in further detail at your follow-up appointment, if applicable. Proposed Discharge Date: 09/11/17 09/11/17 1043 <Electronically signed by Sadaf Honeycutt MD> Date Sadaf Honeycutt MD CC: Michele Reilly MD; Vincent Herbert MD BEDSIDE GLUCOSE Collected: 09/11/2017 Status: F Source: [place] 7:05 AM [facility] REPOSITORY TYPE CODE TESTS RESULT OUT OF REFERENCE UNITS RANGE LAB L501.080 70-110 mg/dL High BEDSIDE GLU 154 Result Comment: MANAGEMENT OF PATIENT CARE PER NURSING PROTOCOL Performed By: #### L501.080 #### [facility] Point of Care [address] [place], [place] [id number] BEDSIDE GLUCOSE Collected: 09/10/2017 Status: F Source: [place] 9:46 PM [facility] REPOSITORY TYPE CODE TESTS RESULT OUT OF REFERENCE UNITS RANGE LAB L501.080 70-110 mg/dL High BEDSIDE GLU 209 Result Comment: MANAGEMENT OF PATIENT CARE PER NURSING PROTOCOL Performed By: #### L501.080 #### [facility] Point of Care [address] [place] [address] CONSULTATION Observed: 09/10/2017 Status: F Source: [place] 4:25 PM [facility] REPOSITORY [facility] Medical Records Department [address] [place] [address] Consultation 09/10/17 1620 MR#: [id number] Acct: [id number] Name: KATHLEEN KHAN V Rep #: [id number] : 1960 57 From: Michele Reilly MD PCP: Vincent Herbert MD Status: ADM IN Y Location: [facility] [place] [id number] Problem List (1) Cellulitis Status: Acute Qualifiers: Reason for Consult: cellulitis Consulted by: Dr. Honeycutt History of Present Illness: The patient is a 57 year old F with morbid obesity who presented with several days of R hip and B medial thigh redness/warmth/tenderness. No inciting events. no fever. Had similar episode a month ago requiring admission and dc home on augmentin. Reports glucose has not been well controlled. On levaquin after getting doses of clinda and cefazolin. Feeling better. Full ROS performed and neg except as noted above. - Medical History Past Medical History (Chronic Problems): Chronic Problems History of pneumonia (Chronic) JEREMÍAS (obstructive sleep apnea) (Chronic) Lumbosacral neuritis (Chronic) Esophageal reflux (Chronic) Morbid obesity (Chronic) Hypertension (Chronic) Allergies/Adverse Reactions: Allergies vancomycin Allergy (Verified 09/09/17 02:33) Rash amlodipine Adverse Reaction (Verified 09/09/17 02:33) Unknown atenolol Adverse Reaction (Verified 09/09/17 02:33) Unknown bupropion HCl [From Wellbutrin] Adverse Reaction (Verified 09/09/17 02:33) Unknown fluoxetine HCl [From Prozac] Adverse Reaction (Verified 09/09/17 02:33) Unknown meloxicam [From Mobic] Adverse Reaction (Verified 09/09/17 02:33) Unknown metoprolol Adverse Reaction (Verified 09/09/17 02:33) Unknown pregabalin [From Lyrica] Adverse Reaction (Verified 09/09/17 02:33) Unknown quetiapine fumarate [From Seroquel] Adverse Reaction (Verified 09/09/17 02:33) Unknown quinapril HCl [From Accupril] Adverse Reaction (Verified 09/09/17 02:33) Unknown risperidone Adverse Reaction (Verified 09/09/17 02:33) Unknown rofecoxib [From Vioxx] Adverse Reaction (Verified 09/09/17 02:33) Unknown sitagliptin phosphate [From Januvia] Adverse Reaction (Verified 09/09/17 02:33) Unknown venlafaxine HCl [From Effexor] Adverse Reaction (Verified 09/09/17 02:33) Unknown Home Medications: Ambulatory Orders Medication Instructions Recorded Aripiprazole 10 mg PO QHS 12/02/14 Aspirin [Adult Low Dose Aspirin EC] 81 mg PO DAILY 12/02/14 - Social History SMOKING STATUS:: Former smoker Vital Signs Temp Pulse Resp BP Pulse Ox 98.3 F 85 20 H 133/59 H 98 09/10/17 08:39 09/10/17 14:00 09/10/17 08:39 09/10/17 08:39 09/10/17 08:39 Oxygen Flow Rate (L/min) 2 Oxygen Delivery Method Room Air Weight: 178.7 kg Body Mass Index (BMI) 74.4 Laboratory Tests Past 24 Hrs WBC 8.3 RBC 4.38 Hgb 12.2 Hct 37.9 MCV 86.5 MCH 27.9 MCHC 32.2 RDW 13.5 RDW Differential 43.0 Plt Count 157 WBC RBC Hgb Hct MCV MCH MCHC RDW RDW Differential Plt Count MPV Immature Gran % (Auto) - Other Studies Radiology: [] reviewed Other Studies: [] Route of nutrition/ use of supplements: [] Nutritional Intake: [] IV Site: [] Bailey Catheter: [] - Physical Exam General: Alert, Oriented x3, Cooperative, No apparent distress HEENT: Atraumatic, PERRLA, EOMI Neck: Supple, No Nodes Lungs: Clear to auscultation, Normal air movement Cardiovascular: Regular rate, Regular Rhythm Abdomen: Bowel Sounds Present, Soft, Non Tender, Non-Distended, Obese Skin: - - erythema, warmth, mild induration tenderness over R hip and medial/posterior thighs. IV Site: Peripheral, without redness Musculoskeletal: No Tenderness to Palpation of Joints or Extremities Neurological: Cranial nerves II-XII grossly intact - Assessment/Plan Antibiotics: [] Assessment/Plan: [] BLE cellulitis with uncontrolled DM and morbid obesity - recommend tighter glucose control, weight loss to prevent further episodes. Will treat with cefazolin for strep coverage. No purulence seen. Plan on home with keflex for 7-1 day course. Will follow, thank you. 09/10/17 1625 <Electronically signed by Michele Reilly MD> Date Michele Reilly MD Cosigner Signature (if applicable): Date CC: Michele Reilly MD; Vincent Herbert MD Signed BEDSIDE GLUCOSE Collected: 09/10/2017 Status: F Source: [place] 4:12 PM [facility] REPOSITORY TYPE CODE TESTS RESULT OUT OF REFERENCE UNITS RANGE LAB L501.080 70-110 mg/dL High BEDSIDE GLU 130 Result Comment: MANAGEMENT OF PATIENT CARE PER NURSING PROTOCOL Performed By: #### L501.080 #### [facility] Point of Care [address] [place] [address] BEDSIDE GLUCOSE Collected: 09/10/2017 Status: F Source: [place] 11:12 AM [facility] REPOSITORY TYPE CODE TESTS RESULT OUT OF REFERENCE UNITS RANGE LAB L501.080 70-110 mg/dL High BEDSIDE GLU 180 Result Comment: MANAGEMENT OF PATIENT CARE PER NURSING PROTOCOL Performed By: #### L501.080 #### [facility] Point of Care [address] [place] [address] BEDSIDE GLUCOSE Collected: 09/10/2017 Status: F Source: [place] 7:44 AM [facility] REPOSITORY TYPE CODE TESTS RESULT OUT OF REFERENCE UNITS RANGE LAB L501.080 70-110 mg/dL High BEDSIDE GLU 139 Result Comment: MANAGEMENT OF PATIENT CARE PER NURSING PROTOCOL Performed By: #### L501.080 #### [facility] Point of Care [address] [place], [place] [address] BASIC METABOLIC Collected: 09/10/2017 Status: F Source: [place] PROFILE (BMP) 5:25 AM [facility] REPOSITORY TYPE CODE TESTS RESULT OUT OF RANGE REFERENCE UNITS LAB L501.0100 74-106 mg/dL High GLU 164 Result Comment: Fasting Glucose result greater than or equal to 126 mg/dL suggests DIABETES MELLITUS per A.D.A. criteria. Please note revised GLUCOSE reference range effective 2017. LAB L501.1000 7-18 mg/dL Normal BUN 14 LAB L501.1100 0.55-1.02 mg/dL Low CREAT,SERUM 0.54 Result Comment: The validity of the calculated GFR AND GFRAA in patients over 70 years has not been determined. Clinical correlation is essential. LAB L501.1110 >60 mL/min Normal EST GFR 123 Result Comment: Non- GFR Calc LAB L501.1115 >60 mL/min Normal EST GFR - AA 149 Result Comment: GFR Calc LAB L501.1255 ml/min Normal Estimated CRCL 86.74 LAB L501.1300 10-20 RATIO High BUN/CRE 25.9 LAB L501.2200 8.5-10 mg/dL Normal .1 CA 8.6 LAB L501.5300 136-14 mmol/L Normal 5 NA 142 LAB L501.5600 3.5-5. mmol/L Normal 1 K 3.7 LAB L501.5900 98-107 mmol/L Normal CL 104 LAB L501.6100 21.0-3 mmol/L Normal 2.0 CO2 31.0 LAB L501.6200 5-15 Normal GAP 7 Performed By: #### L500.2500 #### [facility] [address] [place], [place], [address] LACTIC ACID Collected: 09/10/2017 Status: F Source: [place] 5:25 AM [facility] REPOSITORY Order Comment: Yes/No query for Sepsis Lactate Rule Y TYPE CODE TESTS RESULT OUT OF RANGE REFERENCE UNITS LAB L503.6005 0.4-2.0 mmol/L Normal LACTIC ACID 0.6 Performed By: #### L503.6005 #### [facility] [address] [place], [place], [address] CBC W/DIFF, AUTOMATED Collected: 09/10/2017 Status: F Source: [place] 5:25 AM [facility] REPOSITORY TYPE CODE TESTS RESULT OUT OF RANGE REFERENCE UNITS LAB L100.1000 4.4-11.0 K/mm3 Normal WBC 8.3 LAB L100.1200 4.2-5.4 M/mm3 Normal RBC 4.38 LAB L100.1300 12.0-15.0 g/dl Normal HGB 12.2 LAB L100.1400 37-47 % Normal HCT 37.9 LAB L100.1500 81-99 fL Normal MCV 86.5 LAB L100.1600 27.0-32.0 pg Normal MCH 27.9 LAB L100.1700 32-36 g/gl Normal MCHC 32.2 LAB L100.1810 11.6-14.6 % Normal RDW CV 13.5 LAB L100.1820 35.1-43.9 fl Normal RDW SD 43.0 LAB L100.1900 150-450 K/mm3 Normal PLT 157 LAB L100.2000 6.2-12.0 fl Normal MPV 10.7 LAB L100.2100 47-70 % High NEUT% 81.9 LAB L100.2200 19-41 % Low LY% 12.0 LAB L100.2300 0-10 % Normal MONO% 5.6 LAB L100.2400 0-5 % Normal EO% 0.4 LAB L100.2500 0-1 % Normal BASO% 0.0 LAB L100.2550 0.0-0.9 % Normal IM GRAN % 0.100 Result Comment: IG% - Immature Granulocytes (promyelocytes, myelocytes and metamyelocytes) > 1% indicates that a LEFT SHIFT is Present. LAB L100.2620 2.0-7.7 X10 3/uL Normal Absolute Neut 6.8 LAB L100.2720 0.83-4.51 X10 3/ul Normal Absolute Lymph 1.00 Performed By: #### L100.0100 #### [facility] [address] [place], [place], [address] BEDSIDE GLUCOSE Collected: 09/09/2017 Status: F Source: [place] 8:56 PM [facility] REPOSITORY TYPE CODE TESTS RESULT OUT OF REFERENCE UNITS RANGE LAB L501.080 70-110 mg/dL High BEDSIDE GLU 264 Result Comment: MANAGEMENT OF PATIENT CARE PER NURSING PROTOCOL Performed By: #### L501.080 #### [facility] Point of Care [address] [place] [address] LACTIC ACID Collected: 09/09/2017 Status: F Source: [place] 6:22 PM [facility] REPOSITORY Order Comment: Yes/No query for Sepsis Lactate Rule Y TYPE CODE TESTS RESULT OUT OF REFERENCE UNITS RANGE LAB L503.6005 0.4-2.0 mmol/L High LACTIC ACID 2.6 Result Comment: CALLED HERB MEDINA MS-2 WITH CRITICAL LA BY [facility] 09-09-17 AT 1911PM READ BACK BY SAME Performed By: #### L503.6005 #### [facility] [address] [place], [place], [address] BEDSIDE GLUCOSE Collected: 09/09/2017 Status: F Source: [place] 4:46 PM [facility] REPOSITORY TYPE CODE TESTS RESULT OUT OF REFERENCE UNITS RANGE LAB L501.080 70-110 mg/dL High BEDSIDE GLU 190 Result Comment: MANAGEMENT OF PATIENT CARE PER NURSING PROTOCOL Performed By: #### L501.080 #### [facility] Point of Care [address] [place] [address] BEDSIDE GLUCOSE Collected: 09/09/2017 Status: F Source: [place] 11:47 AM [facility] REPOSITORY TYPE CODE TESTS RESULT OUT OF REFERENCE UNITS RANGE LAB L501.080 70-110 mg/dL High BEDSIDE GLU 228 Result Comment: MANAGEMENT OF PATIENT CARE PER NURSING PROTOCOL Performed By: #### L501.080 #### [facility] Point of Care [address] [place] [address] CBC W/DIFF, AUTOMATED Collected: 09/09/2017 Status: F Source: [place] 6:42 AM [facility] REPOSITORY TYPE CODE TESTS RESULT OUT OF RANGE REFERENCE UNITS LAB L100.1000 4.4-11.0 K/mm3 High WBC 12.0 LAB L100.1200 4.2-5.4 M/mm3 Normal RBC 4.26 LAB L100.1300 12.0-15.0 g/dl Normal HGB 12.0 LAB L100.1400 37-47 % Low HCT 36.4 LAB L100.1500 81-99 fL Normal MCV 85.4 LAB L100.1600 27.0-32.0 pg Normal MCH 28.2 LAB L100.1700 32-36 g/gl Normal MCHC 33.0 LAB L100.1810 11.6-14.6 % Normal RDW CV 13.1 LAB L100.1820 35.1-43.9 fl Normal RDW SD 40.2 LAB L100.1900 150-450 K/mm3 Normal PLT 185 LAB L100.2000 6.2-12.0 fl Normal MPV 11.0 LAB L100.2100 47-70 % High NEUT% 87.8 LAB L100.2200 19-41 % Low LY% 6.0 LAB L100.2300 0-10 % Normal MONO% 5.2 LAB L100.2400 0-5 % Normal EO% 0.7 LAB L100.2500 0-1 % Normal BASO% 0.1 LAB L100.2550 0.0-0.9 % Normal IM GRAN % 0.200 Result Comment: IG% - Immature Granulocytes (promyelocytes, myelocytes and metamyelocytes) > 1% indicates that a LEFT SHIFT is Present. LAB L100.2620 2.0-7.7 X10 3/uL High Absolute Neut 10.6 LAB L100.2720 0.83-4.51 X10 3/ul Low Absolute Lymph 0.72 Performed By: #### L100.0100 #### [facility] [address] [facility] [place], [place], [address] BASIC METABOLIC Collected: 09/09/2017 Status: F Source: [place] PROFILE ([facility]) 6:42 AM [facility] REPOSITORY TYPE CODE TESTS RESULT OUT OF RANGE REFERENCE UNITS LAB L501.0100 74-106 mg/dL High GLU 219 Result Comment: Glucose result greater than or equal to 200 mg/dL suggests DIABETES MELLITUS per A.D.A. criteria. Please note revised GLUCOSE reference range effective 2017. LAB L501.1000 7-18 mg/dL High BUN 19 LAB L501.1100 0.55-1.02 mg/dL Normal CREAT,SERUM 0.67 Result Comment: The validity of the calculated GFR AND GFRAA in patients over 70 years has not been determined. Clinical correlation is essential. LAB L501.1110 >60 mL/min Normal EST GFR 97 Result Comment: Non- GFR Calc LAB L501.1115 >60 mL/min Normal EST GFR - AA 117 Result Comment: GFR Calc LAB L501.1255 ml/min Normal Estimated CRCL 69.91 LAB L501.1300 10-20 RATIO High BUN/CRE 28.4 LAB L501.2200 8.5-10 mg/dL Normal .1 CA 8.9 LAB L501.5300 136-14 mmol/L Normal 5 NA 140 LAB L501.5600 3.5-5. mmol/L Normal 1 K 4.0 LAB L501.5900 98-107 mmol/L Normal CL 102 LAB L501.6100 21.0-3 mmol/L Normal 2.0 CO2 30.0 LAB L501.6200 5-15 Normal GAP 8 Performed By: #### L500.2500 #### [facility] [address] [place], [address] BEDSIDE GLUCOSE Collected: 09/09/2017 Status: F Source: [place] 6:38 AM [facility] REPOSITORY TYPE CODE TESTS RESULT OUT OF REFERENCE UNITS RANGE LAB L501.080 70-110 mg/dL High BEDSIDE GLU 217 Result Comment: MANAGEMENT OF PATIENT CARE PER NURSING PROTOCOL Performed By: #### L501.080 #### [facility] Point of Care [address] [place] [address] HISTORY AND PHYSICAL Observed: 09/09/2017 Status: F Source: [place] EXAM 4:31 AM [facility] REPOSITORY [facility] Medical Records Department [address] [place] [address] History and Physical 09/09/17 0419 MR#: [id number] Acct: [id number] Name: KATHLEEN KHAN V Rep #: [id number] : 1960 57 From: Isaias Falk MD PCP: Vincent Herbert MD Status: ADM ANU Y Location: [place] [address] Problem List (1) Cellulitis Status: Acute Qualifiers: (2) Esophageal reflux Status: Chronic (3) History of pneumonia Status: Chronic (4) Hypertension Status: Chronic (5) Lumbosacral neuritis Status: Chronic (6) Morbid obesity Status: Chronic (7) JEREMÍAS (obstructive sleep apnea) Status: Chronic History of Present Illness Date of Admission: 09/09/17 Chief Complaint: Left flank cellulitis The patient is a 57 year old female w/ h/o DMII, HTN, cellulitis, and obesity admitted for sepsis secondary to cellulitis. She noted redness on her left flank yesterday around midnight. Nothing appeared to make it better or worse. She was admitted last month for cellulitis and was discharged with Augmentin. She finished a 10 days course of augmentin on August 13. She has fever last night. She also has chill. She has been fatigue and nausea but no vomit. Past Medical History Past Medical History (Chronic Problems): Chronic Problems History of pneumonia (Chronic) JEREMÍAS (obstructive sleep apnea) (Chronic) Lumbosacral neuritis (Chronic) Esophageal reflux (Chronic) Morbid obesity (Chronic) Hypertension (Chronic) Allergies vancomycin Allergy (Verified 09/09/17 02:33) Rash amlodipine Adverse Reaction (Verified 09/09/17 02:33) Unknown atenolol Adverse Reaction (Verified 09/09/17 02:33) Unknown bupropion HCl [From Wellbutrin] Adverse Reaction (Verified 09/09/17 02:33) Unknown fluoxetine HCl [From Prozac] Adverse Reaction (Verified 09/09/17 02:33) Unknown meloxicam [From Mobic] Adverse Reaction (Verified 09/09/17 02:33) Unknown metoprolol Adverse Reaction (Verified 09/09/17 02:33) Unknown pregabalin [From Lyrica] Adverse Reaction (Verified 09/09/17 02:33) Unknown quetiapine fumarate [From Seroquel] Adverse Reaction (Verified 09/09/17 02:33) Unknown quinapril HCl [From Accupril] Adverse Reaction (Verified 09/09/17 02:33) Unknown risperidone Adverse Reaction (Verified 09/09/17 02:33) Unknown rofecoxib [From Vioxx] Adverse Reaction (Verified 09/09/17 02:33) Unknown sitagliptin phosphate [From Januvia] Adverse Reaction (Verified 09/09/17 02:33) Unknown venlafaxine HCl [From Effexor] Adverse Reaction (Verified 09/09/17 02:33) Unknown Home Medications: Ambulatory Orders Medication Instructions Recorded Aripiprazole 10 mg PO DAILY 12/02/14 Aspirin [Adult Low Dose Aspirin EC] 81 mg PO DAILY 12/02/14 Surgical History: cholecystectomy Lives: Spouse/ Significant Other Smoking Status: Never smoker Alcohol: None Drugs: None - *Family History Sibling History Items: Heart Disease Review of Systems Constitutional: Reports: Chills, Fever. Denies: Weight Change HEENT: Denies: Head Aches, Sinus Congestion, Sinus Drainage Cardiovascular: Denies: Chest Pain, Palpitations Respiratory: Denies: Cough, Shortness of breath at rest, Sputum production Gastrointestinal: Denies: Abdominal Pain, Nausea, Vomiting Genitourinary: Denies: Dysuria Musculoskeletal: Denies: Joint Pain, Joint Tenderness Skin: Reports: Skin Changes. Denies: Rash, Wounds Neurological: Denies: Numbness, Tingling, Focal weakness Psychiatric: Denies: Anxiety, Depression, Homicidal Ideations, Suicidal Ideations Hematologic/ Lymphatic: Denies: Easy Bruising, Easy Bleeding VTE Information - Inpt Only VTE Present on Admission: No VTE Mechan Device Prophylaxis: SCD's VTE Pharm Prophylaxis ordered?: Yes - Physical Exam General: Alert, Oriented x3, Cooperative HEENT: Atraumatic, PERRLA, EOMI, Normocephalic Neck: Supple, No JVD, Negative Carotid Bruits Lungs: Clear to auscultation, Normal air movement Cardiovascular: Regular rate, No murmurs Abdomen: Bowel Sounds Present, Soft, Non Tender Extremities: No edema, Capillary Refill Less than 3 Seconds Skin: - - Cellulitis on left back Musculoskeletal: No Tenderness to Palpation of Joints or Extremities Neurological: Cranial nerves II-XII grossly intact Psych/Mental Status: Normal Affect, Appropriate Vital Signs Temp Pulse Resp BP Pulse Ox 99.6 F H 113 H 17 108/66 95 09/09/17 02:38 09/09/17 03:38 09/09/17 03:38 09/09/17 03:38 09/09/17 02:38 Oxygen Delivery Method Room Air Weight: 182 kg Body Mass Index (BMI) 75.8 Laboratory Tests Past 24 Hrs WBC 14.2 H RBC 4.58 Hgb 12.8 Hct 39.1 MCV 85.4 MCH 27.9 MCHC 32.7 RDW 13.2 WBC RBC Hgb Hct MCV MCH MCHC RDW RDW Differential Plt Count MPV Immature Gran % (Auto) Neut % (Auto) Lymph % (Auto) Assessment/Plan All Active Problems Cellulitis (Acute) 57 year old female w/ h/o DMII, HTN, cellulitis, and obesity admitted for sepsis secondary to cellulitis. 1) Sepsis secondary to cellulitis: Recurrent cellulitis. Will start clindamycin. Cultures pending. Will consider Zosyn if no improvement. 2) DMII: Resume home meds. Sliding scale and accucheck. 3) HTN: SBP 110s. Resume home meds. 4) Prophylaxis: SCD / heparin. 09/09/17 0431 <Electronically signed by Isaias Falk MD> Date Isaias Falk MD Cosigner Signature: Date (if applicable) CC: Isaias Falk MD; Vincent Herbert MD Signed EMERGENCY DEPARTMENT Observed: 09/09/2017 Status: F Source: [place] SUMMARY 4:00 AM [facility] REPOSITORY [facility] Medical Records Department [address] [place] [address] Emergency Department Summary 09/09/17 0247 MR#: [id number] Acct: [id number] Name: KATHLEEN KHAN V Rep #: [id number] : 1960 57 From: Claudia Gerardo PCP: Vincent Herbert MD Status: REG ER - ER Visit Summary Date of Service: 09/09/17 Chief Complaint: [Fever] History of Present Illness: The patient is a 57 F [who presents the emergency department with fever and left flank redness and pain. She has had recurrent cellulitis in this area. She was recently discharged from the hospital on August 03. Panda antibiotics till August 13. She has been doing well until yesterday when she started to feel ill and today she got a fever the pain and redness. She has been nauseated and weak but denies cough shortness of breath diarrhea or changes in urine] Physical Examination: [] Heart rate 103 temperature 100.9 other vitals within normal limits Obese female in no acute distress PERRL EOMI MMM NECK supple and nontender, no masses Regular tachycardic rhythm no murmur rub or gallop, no peripheral edema, symmetric radial pulses CTAB no respiratory distress ABDOMEN is soft and nontender, normal bowel sounds, no distension, no rebound or guarding SKIN patient has redness tenderness warmth from the gluteal crest around the left flank there is no palpable abscess or draining wound Alert and Oriented x3, CN II-XII in tact, no motor or sensory deficits, gait normal No lymphadenopathy Test Results: [EKG is sinus tachycardia with no acute ischemic changes or conduction abnormalities intervals are normal ST segments are unremarkable] Emergency Department Course and Treatment: [Septic workup was pursued and patient was given clindamycin directed at the source of her infection. Patient was given clindamycin. Screening labs show leukocytosis. She has hyperglycemia. Lactic acid was normal. She remained stable in the emergency department. She was given Tylenol for fever. She will be admitted to the hospital.] Treatment Plan: [] Disposition: [Admit] Impression: [1. Cellulitis 2. Sepsis] This note was generated with ProBinder dictation software. It may contain incorrect words, spelling, and punctuation that were not noted in review of the chart prior to signing ED Disposition - Plan for ED Patient: Chief Complaint: General Illness Referrals: Vincent Herbert MD [Primary Care Provider] - What to do if you have Problems For any increased pain, shortness of breath, bleeding, nausea or vomiting, chest pain, or any unexpected problems, contact your Primary Care Provider. Call [facility] ([phone]) or report to the closest Emergency Room. Call 911 if necessary. 09/09/17 0400 <Electronically signed by Claudia Gerardo > Date Claudia Gerardo Cosigner Signature (If Indicated): Date CC: Vincent Herbert MD URINALYSIS, COMPLETE Collected: 09/09/2017 Status: F Source: [place] 3:56 AM [facility] REPOSITORY Order Comment: How was Urine Obtained? CATHETER SPECIMEN TYPE CODE TESTS RESULT OUT OF RANGE REFERENCE UNITS LAB L400.3000 Yellow COLOR Normal Yellow LAB L400.3050 Clear Normal CLARITY Sl. Cloudy LAB L400.3200 Normal mg/dl High GLUCOSE, UR 250 LAB L400.3300 Negative mg/dL Normal BILIRUBIN URINE Negative LAB L400.3400 Negative mg/dl High 5 KETONE UR LAB L400.3465 1.002-1.030 Normal SP.GR. DIPSTX 1.025 LAB L400.3550 5.0 - 8.0 pH UR Normal 5.0 LAB L400.3600 Negative mg/dl High PROT 15 DIPSTX LAB L400.3700 Normal mg/dl Normal UROBILI Normal LAB L400.3750 Negative Normal NITRITE UR Negative LAB L400.3780 Negative /ul Normal OCCULT BLOOD-UR Negative LAB L400.3800 Negative /ul LEUK Normal ESTERASE Negative LAB L400.4050 0-5 /hpf WBC Normal 0-5 SEEN LAB L400.4100 0-5 /hpf 0 Normal RBC-UA SEEN LAB L400.4150 5-10 /hpf SQUAM Normal EPI 0-5 SEEN LAB L400.4300 None Seen /hpf Normal BACTERIA RARE LAB L400.4350 <or=2+ /hpf 2+ Normal MUCUS, URINE Performed By: #### L400.0001 #### [facility] [address] [place], [place], [id number] URINE DRUG SCREEN Collected: 09/09/2017 Status: F Source: [place] (KRISTA) 3:56 AM [facility] REPOSITORY TYPE CODE TESTS RESULT OUT OF RANGE REFERENCE UNITS LAB L505.0075 TO BE Normal CONFIRMED Result Comment: CONFIRMATORY TESTING FOR ALL POSITIVE URINE DRUG SCREEN RESULTS WILL ONLY BE SENT OUT UPON PHYSICIAN ORDER. BERNICE Urine Drug Screen methods provide only preliminary analytical test results. A more specific alternate chemical method must be used in order to obtain a confirmed analytical result. Gas chromatography/mass spectrometery (GC/MS) is the preferred confirmatory method. Clinical consideration and professional judgement should be applied to any drug of abuse test result, particularly when preliminary positive results are used. URINE TCA TESTING MUST BE ORDERED SEPARATELY. USE TEST MNEMONIC: [facility] LAB L505.5005 VISTA UDS PH 5 Normal LAB L505.5015 <1000 ng/mL AMPHETAMINES Normal NEGATIVE LAB L505.5025 < 200 ng/mL BARBITIURATES Normal NEGATIVE LAB L505.5035 < 200 ng/mL BENZODIAZIPINE Normal NEGATIVE LAB L505.5045 < 300 ng/mL COCAINE Normal NEGATIVE LAB L505.5055 < 500 ng/mL ECSTACY Normal NEGATIVE LAB L505.5065 < 300 ng/mL METHADONE Normal NEGATIVE LAB L505.5075 < 300 High ng/mL OPIATES POSITIVE LAB L505.5085 < 25 ng/mL PCP Normal NEGATIVE LAB L505.5095 < 50 ng/mL THC Normal NEGATIVE Performed By: #### L505.5000 #### [facility] [address] [place], [place], [id number] Observed: 09/09/2017 Status: F Source: [place] CULTURE, URINE 3:56 AM [facility] REPOSITORY Has pt arrived? Y Urine Culture #2 Granulicatella adiacens There are no CLSI standards for interpretation of this Drug/Organism combination. ORGANISM 1: Streptococcus gallolyticus pas [place] Count 80,000-100,000 ORGANISM 2: Granulicatella adiacens [place] Count >100,000 Streptococcus gallolyticus pas: REACTION Ampicillin $ <=0.25 S Benzylpenicillin NF 0.12 S Cefotaxime $ <=0.12 S Ceftriaxone $ <=0.12 S Vancomycin $ 0.5 S (NF) indicates non-formulary drug at [facility]. Approval by Infectious Disease Specialist required before non-formulary drugs may be ordered and/or dispensed. * CLSI guidelines does not recommend testing of cephalosporins. This interpretation is deduced from Beta-lactam/penicillin results. Performed By: #### M100.0650 #### [facility] [address] [place], [place], [address] Observed: 09/09/2017 Status: F Source: [place] CULTURE, BLOOD (WB) 3:02 AM [facility] REPOSITORY BC No growth in 5 days. Performed By: #### M200.1000 #### [facility] [address] [place], [address] COMPREHENSIVE METABOLIC Collected: 09/09/2017 Status: F Source: [place] PROFIL 2:35 AM [facility] REPOSITORY TYPE CODE TESTS RESULT OUT OF RANGE REFERENCE UNITS LAB L501.0100 74-106 mg/dL High GLU 261 Result Comment: Glucose result greater than or equal to 200 mg/dL suggests DIABETES MELLITUS per A.D.A. criteria. Please note revised GLUCOSE reference range effective 2017. LAB L501.1000 7-18 mg/dL High BUN 20 LAB L501.1100 0.55-1.02 mg/dL Normal CREAT,SERUM 0.77 Result Comment: The validity of the calculated GFR AND GFRAA in patients over 70 years has not been determined. Clinical correlation is essential. LAB L501.1110 >60 mL/min Normal EST GFR 82 Result Comment: Non- GFR Calc LAB L501.1115 >60 mL/min Normal EST GFR - AA 99 Result Comment: GFR Calc LAB L501.1255 ml/min Normal Estimated CRCL 60.83 LAB L501.1300 10-20 RATIO High BUN/CRE 26.0 LAB L501.1500 6.4-8. g/dL Normal 2 T PROT 6.7 LAB L501.1800 3.2-5. g/dL Normal 0 ALB 3.3 LAB L501.1950 2.2-4. g/dL Normal 2 GLOB 3.4 LAB L501.2000 0.9-2. RATIO Normal 4 A/G 1.0 LAB L501.2200 8.5-10 mg/dL Normal .1 CA 9.2 LAB L501.4100 15-37 U/L Low AST 8 LAB L501.4305 45-117 U/L High ALK P 141 LAB L501.4405 13-56 U/L Normal ALT 20 LAB L501.4600 0.20-1 mg/dL Normal .00 T BILI 0.50 LAB L501.5300 136-14 mmol/L Normal 5 NA 139 LAB L501.5600 3.5-5. mmol/L Normal 1 K 4.2 LAB L501.5900 98-107 mmol/L Normal CL 100 LAB L501.6100 21.0-3 mmol/L Normal 2.0 CO2 30.0 LAB L501.6200 5-15 Normal GAP 9 Performed By: #### L500.4050 #### [facility] [address] [place], [place], [address] LACTIC ACID Collected: 09/09/2017 Status: F Source: [place] 2:35 AM [facility] REPOSITORY Order Comment: Yes/No query for Sepsis Lactate Rule Y TYPE CODE TESTS RESULT OUT OF RANGE REFERENCE UNITS LAB L503.6005 0.4-2.0 mmol/L Normal LACTIC ACID 1.7 Performed By: #### L503.6005 #### [facility] [address] [place], [address] CBC W/DIFF, AUTOMATED Collected: 09/09/2017 Status: F Source: [place] 2:35 AM [facility] REPOSITORY TYPE CODE TESTS RESULT OUT OF RANGE REFERENCE UNITS LAB L100.1000 4.4-11.0 K/mm3 High WBC 14.2 LAB L100.1200 4.2-5.4 M/mm3 Normal RBC 4.58 LAB L100.1300 12.0-15.0 g/dl Normal HGB 12.8 LAB L100.1400 37-47 % Normal HCT 39.1 LAB L100.1500 81-99 fL Normal MCV 85.4 LAB L100.1600 27.0-32.0 pg Normal MCH 27.9 LAB L100.1700 32-36 g/gl Normal MCHC 32.7 LAB L100.1810 11.6-14.6 % Normal RDW CV 13.2 LAB L100.1820 35.1-43.9 fl Normal RDW SD 40.4 LAB L100.1900 150-450 K/mm3 Normal PLT 205 LAB L100.2000 6.2-12.0 fl Normal MPV 11.2 LAB L100.2100 47-70 % High NEUT% 90.3 LAB L100.2200 19-41 % Low LY% 3.5 LAB L100.2300 0-10 % Normal MONO% 5.0 LAB L100.2400 0-5 % Normal EO% 0.8 LAB L100.2500 0-1 % Normal BASO% 0.1 LAB L100.2550 0.0-0.9 % Normal IM GRAN % 0.300 Result Comment: IG% - Immature Granulocytes (promyelocytes, myelocytes and metamyelocytes) > 1% indicates that a LEFT SHIFT is Present. LAB L100.2620 2.0-7.7 X10 3/uL High Absolute Neut 12.8 LAB L100.2720 0.83-4.51 X10 3/ul Low Absolute Lymph 0.50 Performed By: #### L100.0100 #### [facility] [address] [place], [place], [id number] PROTHROMBIN TIME W/INR Collected: 09/09/2017 Status: F Source: [place] 2:35 AM [facility] REPOSITORY TYPE CODE TESTS RESULT OUT OF RANGE REFERENCE UNITS LAB L300.4150 11.7-14.9 SECONDS Normal PROTIME 13.6 LAB L300.4200 Normal INR 1.0 Performed By: #### L300.3900, L300.4310 #### [facility] [address] [place], [place], [id number] PARTIAL THROMBOPLAST Collected: 09/09/2017 Status: F Source: [place] TIME 2:35 AM [facility] REPOSITORY TYPE CODE TESTS RESULT OUT OF RANGE REFERENCE UNITS LAB L300.4310 24.1-36.2 Seconds Normal PTT 31.5 Performed By: #### L300.3900, L300.4310 #### [facility] [address] [place], [address] Observed: 09/09/2017 Status: F Source: [place] CULTURE, BLOOD (WB) 2:35 AM [facility] REPOSITORY BC No growth in 5 days. Performed By: #### M200.1000 #### [facility] [address] [place], [place], [address] EMERGENCY DEPARTMENT Observed: 09/08/2017 Status: F Source: [place] SUMMARY 10:14 PM [facility] REPOSITORY [facility] Medical Records Department [facility] [place] [address] Emergency Department Summary 08/01/17 1756 MR#: [id number] Acct: [id number] Name: KATHLEEN KHAN V Rep #: [id number] : 1960 57 From: Claudia Gerardo PCP: Vincent Herbert MD Status: DIS IN - ER Visit Summary Date of Service: 08/01/17 Chief Complaint: [Fever weakness] History of Present Illness: The patient is a 57 F [who presents the emergency department with 1 day of fever and weakness. She had a temperature of 103 at home. She last took Motrin at 10:30 AM this morning. She has a history of cellulitis on her right hip. She has been nauseated she has had a mild cough and shortness of breath. She is diabetic and her sugars have been running high. She denies any abdominal pain or diarrhea. She denies any back pain or headache. She has mild myalgias and arthralgias.] Physical Examination: [] Temp 101.8. Heart rate 126 Obese WN WD NAD PERRL EOMI MMM NECK supple and nontender, no masses Regular tachycardic rhythm no murmur rub or gallop, no peripheral edema, symmetric radial pulses CTAB no respiratory distress ABDOMEN is soft and nontender, normal bowel sounds, no distension, no rebound or guarding SKIN has erythema of her entire back but has a patch of erythema and tenderness on her right flank hip area she has full range of motion of her joints Alert and Oriented x3, CN II-XII in tact, no motor or sensory deficits, gait normal use weakness and mobility is limited by body habitus No lymphadenopathy Test Results: [] Emergency Department Course and Treatment: [Sepsis workup was pursued. Patient's fevers likely secondary to flank cellulitis. She was given broad-spectrum antibiotics. She will be admitted to the hospital] Treatment Plan: [] Disposition: [] Admit Impression: [1 sepsis 2 right flank cellulitis] This note was generated with ProBinder dictation software. It may contain incorrect words, spelling, and punctuation that were not noted in review of the chart prior to signing ED Disposition - Plan for ED Patient: Disposition: Acute Care [facility] Chief Complaint: Weakness What to do if you have Problems For any increased pain, shortness of breath, bleeding, nausea or vomiting, chest pain, or any unexpected problems, contact your Primary Care Provider. Call [facility] ([phone]) or report to the closest Emergency Room. Call 911 if necessary. 09/08/17 2214 <Electronically signed by Claudia Gerardo > Date Claudia Gerardo Cosigner Signature (If Indicated): Date CC: Vincent Herbert MD PROGRESS Observed: 09/03/2017 Status: COMPLETED Source: [place] 3:30 PM [facility] [place] REPOSITORY HNO ID: [id number] Author: Arnav Benedict (Pharmacist) Service: (none) Author Type: Pharmacist Type: Progress Notes Filed: 09/03/2017 4:13 PM Note Text: Patient consents to pharmacy collaborative practice agreement. TELEPHONIC APPOINTMENT REASON FOR CONSULT: DM GOALS: A1c < 7% CONSULTING PROVIDER: Dr. Herbert Date of Consult: 06/2017 Kathleen Khan is a 57 year old female was last seen in [facility] by PCP, Dr. Vincent Herbert MD on 08/10. Patient is CALLED today for initial pharmacotherapy management appointment for DM. At last PCP visit insulin was started. INTERIM HISTORY: 08/31 insulin was increased from 16 to 20 units Reports doing ok with insulin, not seeing a lot of changes in BGs yet Past DM medications: Metformin both IR and ER - GI intolerance Current DM Medications: Insulin detemir 20 units Linagliptin 5mg QAM Glimepiride 4mg QAM Current HTN Medications: Furosemide 20mg once daily Spironolactone 25mg once daily Preventative Medications: ? On FAMILIA/ARB: No ? On Statin: No ? On ASA: Yes ROS: ? Patient denies CP, SOB, ARAIZA, blurred vision, dizziness or lightheadedness ? Patient denies symptoms of hypoglycemia (sweating, anxiety, palpitations, hunger, and tremor) ? Patient denies symptoms of hyperglycemia (polyuria, polydipsia, polyphagia) ? Patient denies potential medication adverse effects DIET/EXERCISE/SOCIAL Hx: Has aid to help with cooking ? Breakfast: cereal or oatmeal ? Lunch: potatoes and egg ? Dinner: leftovers ? Snacks: no ? Following Na restrictions: no ? Beverages: water, diet pop, tea with low sugar sweetener ? Exercise: no ? Tobacco: denies ? Alcohol: denies ? Illicits: denies MEDICATIONS: ? Pill bottles are not present. ? Adherence: denies missed doses. ? Pharmacy: [facility] ? Rx coverage: [employer] ? Affordability: no issues ? Diabetes supplies: [facility] brand ? Organization System: none ACTIVE PROBLEM LIST Anxiety State Essential Hypertension, Benign ABNL GLANDULAR PAP SMEAR CERVIX HYPERPROLACTINEMIA Irregular Menstrual Cycle Esophageal Reflux Diaphragmatic Hernia Without Mention of Obstruction Or Gangrene Morbid Obesity ([facility]) Obstructive Sleep Apnea Svt (Supraventricular Tachycardia) ([facility]) Congestive Heart Failure ([facility]) Spondylolisthesis Lumbar Facet Arthropathy ([facility]) Ddd (Degenerative Disc Disease), Lumbar Ddd (Degenerative Disc Disease), Cervical Dm (Diabetes Mellitus) ([facility]) Pmb (Postmenopausal Bleeding) Dysthymia Major depressive disorder, recurrent episode, moderate ([facility]) Pain Disorder With Psychological Factors Diffuse Myofascial Pain Syndrome Bilateral Primary Osteoarthritis of Knee Obesity, Class III, BMI >= 40 PAST MEDICAL HISTORY Diagnosis Date - Abnormal glandular Papanicolaou smear of cervix 05/30/05 ABNL GLANDULAR PAP SMEAR CERVIX - Acute gastritis without mention of hemorrhage - Anxiety state, unspecified - Arrhythmia - Chronic cholecystitis - Chronic obstructive pulmonary disease (COPD) ([facility]) - Congestive heart failure ([facility]) 10/03/2011 - Diabetes ([facility]) - diabetes II 2010 - Diaphragmatic hernia without mention of obstruction or gangrene - Dysthymic disorder Depression (non-psychotic) - Esophageal reflux - Essential hypertension, benign - Generalized OA - Localized osteoarthrosis not specified whether primary or secondary, lower leg - Major depressive disorder, recurrent episode - Mucous polyp of cervix 07/19/05 - Other and unspecified anterior pituitary hyperfunction 10/13/05 elevated prolactin level-was normal in 2011 - PMH - PAST MEDICAL HISTORY OF sleep apnea - PMH - PAST MEDICAL HISTORY OF sleep apnea - SVT (supraventricular tachycardia) (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 ALLERGIES Allergen Reactions - Lyrica [Pregabalin] Anaphylaxis Not sure if accurate. Can take gabapentin. Patient is unsure of reaction. - Accupril [Quinapril* Intolerance dizziness - Amlodipine Swelling Leg edema - Atenolol Swelling - Effexor [Venlafaxin* swelling high blood pressure - Januvia [Sitaglipti* GI Upset, Other: See Comments Patient states she couldn't eat - Metoprolol Swelling - Mobic [Meloxicam] GI Upset - Prozac [Fluoxetine * Intolerance tremor - Risperidone Mental Status Change - Seroquel [Quetiapin* hypertension,swelling - Vancomycin Itching, Other: See Comments red all over - Vioxx [Rofecoxib] GI Upset - Wellbutrin [Bupropi* Intolerance nightmares Medication List Medication Directions Comments Action/Plan ARIPiprazole (ABILIFY) 10 mg tablet Take 1 tablet by mouth once daily. taking aspirin, enteric coated (ECOTRIN LOW STRENGTH) 81 mg EC tablet Take 1 tablet by mouth once daily. taking baclofen (LIORESAL) 10 mg tablet Take 1 tablet by mouth twice daily. taking blood sugar diagnostic (BLOOD GLUCOSE TEST) test strip Test blood sugar(s) 2 times daily. Dx: Type 2 DM - Controlled E11.9 Insulin: No Blood-Glucose Meter monitoring kit Glucose Meter of Choice - Kit - Dx: Type 2 DM - Controlled E11.9 Use twice daily as directed cetirizine 5 mg tablet Take 10 mg by mouth once daily. PRN DULoxetine (CYMBALTA) 60 mg capsule Take 1 capsule by mouth once daily. taking furosemide (LASIX) 20 mg tablet Take 1 tablet by mouth once daily. taking gabapentin (NEURONTIN) 300 mg capsule Take 1 capsule by mouth twice daily for 30 days. taking glimepiride (AMARYL) 4 mg tablet Take 1 tablet by mouth daily with breakfast. taking HYDROcodone-acetaminophen (NORCO) 5-325 mg per tablet TAKE ONE TABLET TWICE DAILY PRN indomethacin (INDOCIN) 25 mg capsule Take 1 capsule by mouth twice daily as needed. taking insulin detemir U-100 (LEVEMIR FLEXTOUCH U-100 INSULN) 100 unit/mL (3 mL) inpn injection Inject 20 Units subcutaneously daily at bedtime. taking Insulin Hamlin, Disposable, (BD ULTRA-FINE MADI PEN NEEDLE) 32 gauge x ndle Use one needle for each dose. 1/day. lancets (TRUEPLUS LANCETS) 30 gauge misc Test twice daily Dx: 250.02 linagliptin (TRADJENTA) 5 mg tab Take 1 tablet by mouth once daily. taking nitroglycerin sublingual (NITROQUICK) 0.4 mg SL tablet Dissolve 1 tablet under the tongue as needed. FOR CHEST PAIN. IF NO RELIEF CALL 911 nystatin (MYCOSTATIN) cream Apply 1 application to affected area twice daily. polyethylene glycol 3350 (MIRALAX, GLYCOLAX) 17 gram/dose powder Take 17 g by mouth once daily. PRN potassium chloride ER (K-DUR, KLOR-CON) 10 mEq tablet Take 1 tablet by mouth once daily. taking primidone (MYSOLINE) 50 mg tablet TAKE ONE TABLET ONCE DAILY AT BEDTIME taking ranitidine (ZANTAC) 150 mg tablet Take 1 tablet by mouth twice daily. taking spironolactone (ALDACTONE) 25 mg tablet Take 1 tablet by mouth once daily. taking traZODone (DESYREL) 50 mg tablet Take 0.5 tablets by mouth daily at bedtime. taking TRUETEST TEST STRIPS test strip TEST twice a day Rx meds not listed in EPIC: none OTCs: none Herbals: none GLYCEMIC CONTROL: ? Glucometer present at visit: Yes ? SMBG?s: Date Fasting AM 2 hr PP Before Lunch 2 hr PP Before Dinner 2 hr PP Bedtime 09/03 161 15 148 136 /14 206 126 /13 289 (steroid injection on 08/30) 301 08/30 160 200 /11 166 151 7/10 136 141 ? Hypoglycemia: no Last 3 Encounter BP Readings: Date: BP: 08/10/2017 128/82[BP TRUE AVERAGE[ 07/20/2017 116/77 06/29/2017 130/86 Wt: 182 kg (401 lb 3.2 oz) BMI: 75.81 kg/(m2) LABS Lab Results Component Value Date HBA1C 7.8 07/20/2017 HBA1C 6.7 07/24/2016 HBA1C 9.0 04/24/2016 CMP: Glucose 249 08/10/2017 BUN 18 08/10/2017 Creatinine 0.63 08/10/2017 Sodium 137 08/10/2017 Potassium 4.3 08/10/2017 Chloride 94 08/10/2017 CO2 28 08/10/2017 Protein, Total 7.3 07/20/2017 Albumin 4.3 07/20/2017 Calcium 9.8 08/10/2017 Alkaline Phosphatase 173 07/20/2017 Bilirubin, Total 0.4 07/20/2017 AST 17 07/20/2017 ALT 15 07/20/2017 Estimated Creatinine Clearance: 157.9 mL/min (based on SCr of 0.63 mg/dL). Last Lipid Panel Lab Results Component Value Date CHOL 174 07/20/2017 Lab Results Component Value Date HDL 42 07/20/2017 Lab Results Component Value Date LDL 92 07/20/2017 Lab Results Component Value Date TG 199 07/20/2017 Albumin/Creat Ratio (mg/g) Date Value 02/24/2011 3 PHARMACOTHERAPY ASSESSMENT/PLAN: 1. Type 2 diabetes mellitus without complication, unspecified whether computer terminal operator insulin use (HCC) - ICD9: 250.00, ICD10: E11.9 (primary diagnosis) A1c goal < 7%, patient is not at goal (7.8% on 07/20). FBGs not at goal. Patient compliant with and tolerating current regimen. Will transition patient to longer acting basal insulin for better BG control. Continue other therapies for now. Renal fxn and LFTs WNL and appropriate for continued therapy ? START insulin glargine 300 units/mL 20 units once daily ? STOP insulin detemir ? CONTINUE linagliptin 5mg and glimepiride 4mg once daily ? Instructed patient to continue checking FBGs and PPBGs daily Pt is not prescribed statin therapy (indicated for moderate intensity d/t DM and ASCVD risk score 7%). Will discuss next visit. Health Maintenance issues addressed: DILATED RETINAL EXAM due on 06/23/2016 Patient is scheduled to see PCP open access. Patient to return to clinic for PharmD f/u on 09/24 telephonic. Patient verbalized understanding of instructions. Arnav Benedict, YudiD, BCPS CNOV Observed: 09/03/2017 Status: COMPLETED Source: [facility] 3:30 PM [facility] REPOSITORY Office Visit (PHMEWO) KATHLEEN KHAN V ([id number]) 1960 F Date Time Provider Department 09/03/17 3:30 PM JAK (PHARMACIST)ARNAV During your visit today, we recorded the following information about you: ARNAV BENEDICT PHARMACIST 09/03/2017 4:13 PM Signed Patient consents to pharmacy collaborative practice agreement. TELEPHONIC APPOINTMENT REASON FOR CONSULT: DM GOALS: A1c < 7% CONSULTING PROVIDER: Dr. Herbert Date of Consult: 06/2017 Kathleen Khan is a 57 year old female was last seen in [facility] by PCP, Dr. Vincent Herbert MD on 08/10. Patient is CALLED today for initial pharmacotherapy management appointment for DM. At last PCP visit insulin was started. INTERIM HISTORY: 08/31 insulin was increased from 16 to 20 units Reports doing ok with insulin, not seeing a lot of changes in BGs yet Past DM medications: Metformin both IR and ER - GI intolerance Current DM Medications: Insulin detemir 20 units Linagliptin 5mg QAM Glimepiride 4mg QAM Current HTN Medications: Furosemide 20mg once daily Spironolactone 25mg once daily Preventative Medications: ? On FAMILIA/ARB: No ? On Statin: No ? On ASA: Yes ROS: ? Patient denies CP, SOB, ARAIZA, blurred vision, dizziness or lightheadedness ? Patient denies symptoms of hypoglycemia (sweating, anxiety, palpitations, hunger, and tremor) ? Patient denies symptoms of hyperglycemia (polyuria, polydipsia, polyphagia) ? Patient denies potential medication adverse effects DIET/EXERCISE/SOCIAL Hx: Has aid to help with cooking ? Breakfast: cereal or oatmeal ? Lunch: potatoes and egg ? Dinner: leftovers ? Snacks: no ? Following Na restrictions: no ? Beverages: water, diet pop, tea with low sugar sweetener ? Exercise: no ? Tobacco: denies ? Alcohol: denies ? Illicits: denies MEDICATIONS: ? Pill bottles are not present. ? Adherence: denies missed doses. ? Pharmacy: [facility] ? Rx coverage: [employer] ? Affordability: no issues ? Diabetes supplies: [facility] brand ? Organization System: none ACTIVE PROBLEM LIST Anxiety State Essential Hypertension, Benign ABNL GLANDULAR PAP SMEAR CERVIX HYPERPROLACTINEMIA Irregular Menstrual Cycle Esophageal Reflux Diaphragmatic Hernia Without Mention of Obstruction Or Gangrene Morbid Obesity (Hcc) Obstructive Sleep Apnea Svt (Supraventricular Tachycardia) ([facility]) Congestive Heart Failure ([facility]) Spondylolisthesis Lumbar Facet Arthropathy ([facility]) Ddd (Degenerative Disc Disease), Lumbar Ddd (Degenerative Disc Disease), Cervical Dm (Diabetes Mellitus) ([facility]) Pmb (Postmenopausal Bleeding) Dysthymia Major depressive disorder, recurrent episode, moderate ([facility]) Pain Disorder With Psychological Factors Diffuse Myofascial Pain Syndrome Bilateral Primary Osteoarthritis of Knee Obesity, Class III, BMI >= 40 PAST MEDICAL HISTORY Diagnosis Date - Abnormal glandular Papanicolaou smear of cervix 05/30/05 ABNL GLANDULAR PAP SMEAR CERVIX - Acute gastritis without mention of hemorrhage - Anxiety state, unspecified - Arrhythmia - Chronic cholecystitis - Chronic obstructive pulmonary disease (COPD) ([facility]) - Congestive heart failure ([facility]) 10/03/2011 - Diabetes ([facility]) - diabetes II 2010 - Diaphragmatic hernia without mention of obstruction or gangrene - Dysthymic disorder Depression (non-psychotic) - Esophageal reflux - Essential hypertension, benign - Generalized OA - Localized osteoarthrosis not specified whether primary or secondary, lower leg - Major depressive disorder, recurrent episode - Mucous polyp of cervix 07/19/05 - Other and unspecified anterior pituitary hyperfunction 10/13/05 elevated prolactin level-was normal in 2011 - PMH - PAST MEDICAL HISTORY OF sleep apnea - PMH - PAST MEDICAL HISTORY OF sleep apnea - SVT (supraventricular tachycardia) (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 ALLERGIES Allergen Reactions - Lyrica [Pregabalin] Anaphylaxis Not sure if accurate. Can take gabapentin. Patient is unsure of reaction. - Accupril [Quinapril* Intolerance dizziness - Amlodipine Swelling Leg edema - Atenolol Swelling - Effexor [Venlafaxin* swelling high blood pressure - Januvia [Sitaglipti* GI Upset, Other: See Comments Patient states she couldn't eat - Metoprolol Swelling - Mobic [Meloxicam] GI Upset - Prozac [Fluoxetine * Intolerance tremor - Risperidone Mental Status Change - Seroquel [Quetiapin* hypertension,swelling - Vancomycin Itching, Other: See Comments red all over - Vioxx [Rofecoxib] GI Upset - Wellbutrin [Bupropi* Intolerance nightmares Medication List Medication Directions Comments Action/Plan ARIPiprazole (ABILIFY) 10 mg tablet Take 1 tablet by mouth once daily. taking aspirin, enteric coated (ECOTRIN LOW STRENGTH) 81 mg EC tablet Take 1 tablet by mouth once daily. taking baclofen (LIORESAL) 10 mg tablet Take 1 tablet by mouth twice daily. taking blood sugar diagnostic (BLOOD GLUCOSE TEST) test strip Test blood sugar(s) 2 times daily. Dx: Type 2 DM - Controlled E11.9 Insulin: No Blood-Glucose Meter monitoring kit Glucose Meter of Choice - Kit - Dx: Type 2 DM - Controlled E11.9 Use twice daily as directed cetirizine 5 mg tablet Take 10 mg by mouth once daily. PRN DULoxetine (CYMBALTA) 60 mg capsule Take 1 capsule by mouth once daily. taking furosemide (LASIX) 20 mg tablet Take 1 tablet by mouth once daily. taking gabapentin (NEURONTIN) 300 mg capsule Take 1 capsule by mouth twice daily for 30 days. taking glimepiride (AMARYL) 4 mg tablet Take 1 tablet by mouth daily with breakfast. taking HYDROcodone-acetaminophen (NORCO) 5-325 mg per tablet TAKE ONE TABLET TWICE DAILY PRN indomethacin (INDOCIN) 25 mg capsule Take 1 capsule by mouth twice daily as needed. taking insulin detemir U-100 (LEVEMIR FLEXTOUCH U-100 INSULN) 100 unit/mL (3 mL) inpn injection Inject 20 Units subcutaneously daily at bedtime. taking Insulin Hamlin, Disposable, (BD ULTRA-FINE MADI PEN NEEDLE) 32 gauge x 32 ndle Use one needle for each dose. 1/day. lancets (TRUEPLUS LANCETS) 30 gauge misc Test twice daily Dx: 250.02 linagliptin (TRADJENTA) 5 mg tab Take 1 tablet by mouth once daily. taking nitroglycerin sublingual (NITROQUICK) 0.4 mg SL tablet Dissolve 1 tablet under the tongue as needed. FOR CHEST PAIN. IF NO RELIEF CALL 911 nystatin (MYCOSTATIN) cream Apply 1 application to affected area twice daily. polyethylene glycol 3350 (MIRALAX, GLYCOLAX) 17 gram/dose powder Take 17 g by mouth once daily. PRN potassium chloride ER (K-DUR, KLOR-CON) 10 mEq tablet Take 1 tablet by mouth once daily. taking primidone (MYSOLINE) 50 mg tablet TAKE ONE TABLET ONCE DAILY AT BEDTIME taking ranitidine (ZANTAC) 150 mg tablet Take 1 tablet by mouth twice daily. taking spironolactone (ALDACTONE) 25 mg tablet Take 1 tablet by mouth once daily. taking traZODone (DESYREL) 50 mg tablet Take 0.5 tablets by mouth daily at bedtime. taking TRUETEST TEST STRIPS test strip TEST twice a day Rx meds not listed in EPIC: none OTCs: none Herbals: none GLYCEMIC CONTROL: ? Glucometer present at visit: Yes ? SMBG?s: Date Fasting AM 2 hr PP Before Lunch 2 hr PP Before Dinner 2 hr PP Bedtime 09/03 161 09/02 148 136 09/01 206 126 08/31 289 (steroid injection on 08/30) 301 08/30 160 200 08/29 166 151 08/28 136 141 ? Hypoglycemia: no Last 3 Encounter BP Readings: Date: BP: 08/10/2017 128/82[BP TRUE AVERAGE[ 07/20/2017 116/77 06/29/2017 130/86 Wt: 182 kg (401 lb 3.2 oz) BMI: 75.81 kg/(m2) LABS Lab Results Component Value Date HBA1C 7.8 07/20/2017 HBA1C 6.7 07/24/2016 HBA1C 9.0 04/24/2016 CMP: Glucose 249 08/10/2017 BUN 18 08/10/2017 Creatinine 0.63 08/10/2017 Sodium 137 08/10/2017 Potassium 4.3 08/10/2017 Chloride 94 08/10/2017 CO2 28 08/10/2017 Protein, Total 7.3 07/20/2017 Albumin 4.3 07/20/2017 Calcium 9.8 08/10/2017 Alkaline Phosphatase 173 07/20/2017 Bilirubin, Total 0.4 07/20/2017 AST 17 07/20/2017 ALT 15 07/20/2017 Estimated Creatinine Clearance: 157.9 mL/min (based on SCr of 0.63 mg/dL). Last Lipid Panel Lab Results Component Value Date CHOL 174 07/20/2017 Lab Results Component Value Date HDL 42 07/20/2017 Lab Results Component Value Date LDL 92 07/20/2017 Lab Results Component Value Date TG 199 07/20/2017 Albumin/Creat Ratio (mg/g) Date Value 02/24/2011 3 PHARMACOTHERAPY ASSESSMENT/PLAN: 1. Type 2 diabetes mellitus without complication, unspecified whether computer terminal operator insulin use (HCC) - ICD9: 250.00, ICD10: E11.9 (primary diagnosis) A1c goal < 7%, patient is not at goal (7.8% on 07/20). FBGs not at goal. Patient compliant with and tolerating current regimen. Will transition patient to longer acting basal insulin for better BG control. Continue other therapies for now. Renal fxn and LFTs WNL and appropriate for continued therapy ? START insulin glargine 300 units/mL 20 units once daily ? STOP insulin detemir ? CONTINUE linagliptin 5mg and glimepiride 4mg once daily ? Instructed patient to continue checking FBGs and PPBGs daily Pt is not prescribed statin therapy (indicated for moderate intensity d/t DM and ASCVD risk score 7%). Will discuss next visit. Health Maintenance issues addressed: DILATED RETINAL EXAM due on 06/23/2016 Patient is scheduled to see PCP open access. Patient to return to clinic for PharmD f/u on 09/24 telephonic. Patient verbalized understanding of instructions. Arnav Benedict, YudiD, BCPS Referring Provider: VINCENT HERBERT [[id number]] Allergies As of Date: 09/03/2017 Noted Allergy Reaction LYRICA (PREGABALIN) 08/05/2012 10 - Anaphylaxis Comments: Not sure if accurate. Can take gabapentin. Patient is unsure of reaction. ACCUPRIL (QUINAPRIL HCL) 08/12/2005 5 - Intolerance Comments: dizziness AMLODIPINE 04/24/2008 7 - Swelling Comments: Leg edema ATENOLOL 09/29/2010 7 - Swelling EFFEXOR (VENLAFAXINE HCL) 09/22/2005 Comments: swelling high blood pressure JANUVIA (SITAGLIPTIN) 09/21/2011 8 - GI Upset 14 - Other: See Comments Comments: Patient states she couldn't eat METOPROLOL 09/21/2009 7 - Swelling MOBIC (MELOXICAM) 08/12/2005 8 - GI Upset PROZAC (FLUOXETINE HCL) 08/12/2005 5 - Intolerance Comments: tremor RISPERIDONE 12/22/2009 1 - Mental Status Change SEROQUEL (QUETIAPINE FUMARATE) 10/05/2006 Comments: hypertension,swelling VANCOMYCIN 08/10/2017 9 - Itching 14 - Other: See Comments Comments: red all over VIOXX (ROFECOXIB) 08/12/2005 8 - GI Upset WELLBUTRIN (BUPROPION HCL) 08/12/2005 5 - Intolerance Comments: nightmares Date Reviewed: 07/20/2017 Reviewed by: Winnie Overton MA - Fully Assessed Reason for Visit: Allied Health Visit [5] Cmt: DM initial Primary Visit Diagnosis:Type 2 diabetes mellitus without complication, unspecified whether computer terminal operator insulin use (HCC) [E11.9] Order(s):insulin glargine (TOUJEO) 300 unit/mL (1.5 mL) inpnInject 20 Units subcutaneously daily at bedtime.Disp: 3 PenRfl: 1 Prescriptions as of 09/03/2017 Sig: NYSTATIN 100,000 UNIT/GRAM TO* Apply 1 application to affect* GLIMEPIRIDE 4 MG TABLET Take 1 tablet by mouth daily * BACLOFEN 10 MG TABLET Take 1 tablet by mouth twice * LINAGLIPTIN 5 MG TABLET Take 1 tablet by mouth once d* SPIRONOLACTONE 25 MG TABLET Take 1 tablet by mouth once d* RANITIDINE 150 MG TABLET Take 1 tablet by mouth twice * FUROSEMIDE 20 MG TABLET Take 1 tablet by mouth once d* DULOXETINE 60 MG CAPSULE,JODI* Take 1 capsule by mouth once * PRIMIDONE 50 MG TABLET TAKE ONE TABLET ONCE DAILY AT* INDOMETHACIN 25 MG CAPSULE Take 1 capsule by mouth twice* TRAZODONE 50 MG TABLET Take 0.5 tablets by mouth padmini* ARIPIPRAZOLE 10 MG TABLET Take 1 tablet by mouth once d* POTASSIUM CHLORIDE ER 10 MEQ * Take 1 tablet by mouth once d* POLYETHYLENE GLYCOL 3350 17 G* Take 17 g by mouth once daily. ASPIRIN 81 MG TABLET,DELAYED * Take 1 tablet by mouth once d* INSULIN GLARGINE (U-300) 300 * Inject 20 Units subcutaneousl* PEN NEEDLE, DIABETIC 32 GAUGE* Use one needle for each dose.* GABAPENTIN 300 MG CAPSULE Take 1 capsule by mouth twice* HYDROCODONE 5 MG-ACETAMINOPHE* TAKE ONE TABLET TWICE DAILY BLOOD-GLUCOSE METER KIT Glucose Meter of Choice - Kit* BLOOD SUGAR DIAGNOSTIC STRIPS Test blood sugar(s) 2 times d* TRUETEST TEST STRIPS TEST twice a day LANCETS 30 GAUGE Test twice daily Dx: 250.02 NITROGLYCERIN 0.4 MG SUBLINGU* Dissolve 1 tablet under the t* Problem List As Of Date 09/03/2017 Noted Resolved Major depressive disorder, recurrent episode, u*INVALID FOR*11/24/2014 Priority: A More... Anxiety state [F41.1] INVALID FOR* BENIGN HYPERTENSION [I10] INVALID FOR* OSTEOARTHROS NOS-UNSPEC [M19.90] INVALID FOR*02/07/2007 ABNL GLANDULAR PAP SMEAR CERVIX [R87.619] INVALID FOR* HYPERPROLACTINEMIA [E22.9] INVALID FOR* IRREGULAR MENSTRUATION [N92.6] INVALID FOR* ESOPHAGEAL REFLUX [K21.9] INVALID FOR* ACUTE GASTRITIS W/O HEMORRHAGE [K29.00] INVALID FOR*02/07/2007 DIAPHRAGMATIC HERNIA [K44.9] INVALID FOR* Unspecified gastritis and gastroduodenitis with*INVALID FOR*07/24/2016 Localized osteoarthrosis not specified whether *INVALID FOR*07/24/2016 Priority: A More... Pain in joint, site unspecified [M25.50] INVALID FOR*07/24/2016 Routine general medical examination at a health*INVALID FOR*11/29/2011 Class: Chronic More... Routine gynecological examination [Z01.419] INVALID FOR*11/29/2011 Class: Chronic More... More... Morbid obesity [E66.01] INVALID FOR* Priority: Very Severe Hyperprolactinemia [E22.1] INVALID FOR*01/30/2012 Obstructive sleep apnea [G47.33] INVALID FOR* Priority: Severe More... Medication side effects [T88.7XXA] INVALID FOR*08/10/2017 SVT (supraventricular tachycardia) [I47.1] Priority: A Type II or unspecified type diabetes mellitus w*INVALID FOR*04/10/2012 Priority: Moderate More... Congestive heart failure [I50.9] INVALID FOR* Spondylolisthesis [M43.10] INVALID FOR* Lumbar facet arthropathy [M46.96] INVALID FOR* DDD (degenerative disc disease), lumbar [M51.36]INVALID FOR* Diabetes mellitus [E11.9] INVALID FOR*11/24/2014 DDD (degenerative disc disease), cervical [M50.*INVALID FOR* DM (diabetes mellitus) (HCC) [E11.9] INVALID FOR* PMB (postmenopausal bleeding) [N95.0] INVALID FOR* Dysthymia [F34.1] INVALID FOR* Major depressive disorder, recurrent episode, m*INVALID FOR* More... Pain disorder with psychological factors [F45.4*INVALID FOR* Diffuse myofascial pain syndrome [M79.1] INVALID FOR* Bilateral primary osteoarthritis of knee [M17.0]INVALID FOR* Obesity, Class III, BMI >= 40 [E66.01] INVALID FOR* Prescriptions ordered this encounter Disp Refills Start End INSULIN GLARGINE (U-300) 300 UNIT/ML* 3 Pen 1 09/03/2017 Cmt: This replaces the Levemir Route: SUBCUTANEOUS Sig: Inject 20 Units subcutaneously daily at bedtime. Medications Discontinued During This Encounter cetirizine 5 mg tablet 09/03/2017 Class: Historical Med Route: ORAL Sig: Take 10 mg by mouth once daily. Disc: Course of therapy completed insulin detemir U-100 (LEVEMIR FLEXT* 5 Pen 3 08/31/2017 09/03/2017 Class: Med Update Route: SUBCUTANEOUS Sig: Inject 20 Units subcutaneously daily at bedtime. Disc: Reason for discontinue is not on file. Encounter Status:Closed by JAK (PHARMACIST)ARNAV on 09/03/17 CBC AND DIFFERENTIAL Collected: 08/10/2017 Status: F Source: [facility] 3:50 PM [facility] REPOSITORY TYPE CODE TESTS RESULT OUT OF REFERENCE UNITS RANGE LAB WBC 3.70-11.00 k/uL WBC 8.38 LAB RBC 3.90-5.20 m/uL RBC 4.93 LAB HGB 11.5-15.5 g/dL Hemoglobin 13.8 LAB HCT 36.0-46.0 % Hematocrit 42.5 LAB MCV 80.0-100.0 fL MCV 86.2 LAB MCH 26.0-34.0 pG MCH 28.0 LAB MCHC 30.5-36.0 g/dL MCHC 32.5 LAB RDWCV 11.5-15.0 % RDW-CV 13.2 LAB PLTCT 150-400 k/uL Platelet Count 311 LAB MPV 9.0-12.7 fL MPV 11.4 LAB ANEUT % Neut% 70.5 LAB AANEUT 1.45-7.50 k/uL Abs Neut 5.91 LAB ALYMP % Lymph% 19.9 LAB AALYMP 1.00-4.00 k/uL Abs Lymph 1.67 LAB AMONO % [place]% 6.7 LAB AAMONO <0.87 k/uL Abs [place] 0.56 LAB AEOS % Eosin% 2.5 LAB AAEOS <0.46 k/uL Abs Eosin 0.21 LAB ABASO % Baso% 0.4 LAB AABASO <0.11 k/uL Abs Baso 0.03 LAB AUNRBC 0 /100 WBC NRBCs 0.0 LAB ABNRBC <0.01 k/uL Absolute nRBC <0.01 LAB DTYP DTYPE Auto Diff Performed By: #### CBCDIF, BMP #### [facility] [address] [place], [place] [address] BASIC METABOLIC PANL Collected: 08/10/2017 Status: F Source: [facility] 3:50 PM [facility] REPOSITORY TYPE CODE TESTS RESULT OUT OF REFERENCE UNITS RANGE LAB GLU 74-99 mg/dL High Glucose 249 Result Comment: The [place] Diabetes Association (ADA) provides guidance for cutoff values for fasting glucose and random glucose. The ADA defines fasting as no caloric intake for at least 8 hours. Fas ting plasma glucose results between 100 to 125 mg/dL indicate increased risk for diabetes (prediabetes). Fasting plasma glucose results greater than or equal to 126 mg/dL meet the criteria for diagnosis of diabetes. In the absence of unequivocal hyperglycemia, results should be confirmed by repeat testing. In a patient with classic symptoms of hyperglycemia or hyperglycemic crisis, random plasma glucose results greater than or equal to 200 mg/dL meet the criteria for diagnosis of diabetes. Reference: Standards of Medical Care in Diabetes 2016, Canadian Diabetes Association. Diabetes Care. 2016.39(Suppl 1). LAB BUN 7-21 mg/dL BUN 18 LAB CRET 0.58-0.96 mg/dL Creatinine 0.63 LAB NA 136-144 mmol/L Sodium 137 LAB K 3.7-5.1 mmol/L Potassium 4.3 LAB CL 97-105 mmol/L Chloride Low 94 LAB CO2 22-30 mmol/L CO2 28 LAB AGAP 9-18 mmol/L Anion Gap 15 LAB CA 8.5-10.2 mg/dL Calcium, Total 9.8 LAB GFRAA eGFR- Amer. >60 LAB GFRNAA . eGFR-All Other Races >60 Result Comment: eGFR (Estimated GFR) Units of measure: mL/min/1.73 meters squared eGFR is derived from the reexpressed MDRD Study equation using the following parameters: serum creatinine, age, gender and race. The creatinine assay has been calibrated to be traceable to IDMS. An eGFR <60 mL/min/1.73m2 for >3 months is consistent with chronic kidney disease. Refer to KDOQI guidelines for clinical interpretation. In patients with unstable renal function, e.g. those with acute kidney injury, the eGFR may not accurately reflect actual GFR. Performed By: #### CBCDIF, BMP #### [facility] [address] [place], [place] [address] PROGRESS Observed: 08/10/2017 Status: COMPLETED Source: [facility] 8:09 AM [facility] [facility] REPOSITORY HNO ID: [id number] Author: Vincent Herbert Service: (none) Author Type: Physician Type: Progress Notes Filed: 08/10/2017 9:11 AM Note Text: TRANSITION CARE MANAGEMENT (TCM) INITIAL CONTACT [facility] ? Provider Action/FYI: Feels weak and run down, racing heart. Pt has been taking temp, rangng 97-98. Wound looks good, improving. Physical therapist came out on Sat for Intake evaluation and checked her pulse ox: 94% at rest, 76% after walking to the kitchen. Pt has custodial coming today to do intake evaluation. Pt states that while admitted, her blood pressure was running low at 80/50, 80/44 ? ? Initial contact with patient post discharge, spoke to patient. Patient identified by name and . ? SUMMARY: -Pt discharged from [facility] on 08/03/17. -Admitted for: Cellulitis ? Do you have a hospital follow up appointment with your PCP? Appointment on 08/10/[address] Herbert. Yes. Remind patient of appointment date, time, and location. If not within 14 calendar days of discharge - please reschedule accordingly. ? MEDICATIONS: Many patients have questions or concerns about their medications once they are home. Were you prescribed any new medications? Yes If yes, what are those medications? Augmentin 875-125 mg BID for 10 days ? Were you told to hold any medications? No Were any of your medications discontinued? No ? Do you have any questions about getting or taking your medications? No ? Your discharge instructions/After visit Summary (AVS) are important in guiding you through the recovery process. Is there anything I might help you understand? No ? Do you have all the necessary equipment and supplies at home? Yes ? Medical records from recent hospitalization: Placed in file folder for upcoming appointment ? Patient presents with: Hospital Follow Up: [facility] admitted on 08/01/17 for cellulitis HPI: Patient presents today for office visit for TCM visit. HOSPITAL/ER FOLLOW UP: Reason for visit: cellulitis Which facility: [facility] Date of visit: 08/01-08/03 Diagnosis: cellulitis of buttock, flank. DM Testing done: labs, placed on zosyn and vanco and switched to augmentin. Metformin stopped. Insulin ordered but has not taken yet. Current symptoms: sugars still up. Buttock and flank feels better. No fever or chills. Discussed keeping seat cushioned and frequent position changes and moving as well as weight loss. MEDICATIONS: Current Outpatient Prescriptions: insulin detemir U-100 (LEVEMIR FLEXTOUCH U-100 INSULN) 100 unit/mL (3 mL) inpn injection Inject 5 Units subcutaneously daily at bedtime. primidone (MYSOLINE) 50 mg tablet TAKE ONE TABLET ONCE DAILY AT BEDTIME indomethacin (INDOCIN) 25 mg capsule Take 1 capsule by mouth twice daily as needed. gabapentin (NEURONTIN) 300 mg capsule Take 1 capsule by mouth twice daily for 30 days. HYDROcodone-acetaminophen (NORCO) 5-325 mg per tablet TAKE ONE TABLET TWICE DAILY glimepiride (AMARYL) 4 mg tablet Take 1 tablet by mouth daily with breakfast. baclofen (LIORESAL) 10 mg tablet Take 1 tablet by mouth twice daily. linagliptin (TRADJENTA) 5 mg tab Take 1 tablet by mouth once daily. spironolactone (ALDACTONE) 25 mg tablet Take 1 tablet by mouth once daily. ranitidine (ZANTAC) 150 mg tablet Take 1 tablet by mouth twice daily. furosemide (LASIX) 20 mg tablet Take 1 tablet by mouth once daily. DULoxetine (CYMBALTA) 60 mg capsule Take 1 capsule by mouth once daily. traZODone (DESYREL) 50 mg tablet Take 0.5 tablets by mouth daily at bedtime. ARIPiprazole (ABILIFY) 10 mg tablet Take 1 tablet by mouth once daily. nystatin (MYCOSTATIN) cream Apply 1 application to affected area twice daily. potassium chloride ER (K-DUR, KLOR-CON) 10 mEq tablet Take 1 tablet by mouth once daily. nitroglycerin sublingual (NITROQUICK) 0.4 mg SL tablet Dissolve 1 tablet under the tongue as needed. FOR CHEST PAIN. IF NO RELIEF CALL 911 polyethylene glycol 3350 (MIRALAX, GLYCOLAX) 17 gram/dose powder Take 17 g by mouth once daily. cetirizine 5 mg tablet Take 10 mg by mouth once daily. aspirin, enteric coated (ECOTRIN LOW STRENGTH) 81 mg EC tablet Take 1 tablet by mouth once daily. Insulin Hamlin, Disposable, (BD ULTRA-FINE MADI PEN NEEDLE) 32 gauge x ndle Use one needle for each dose. 1/day. Blood-Glucose Meter monitoring kit Glucose Meter of Choice - Kit - Dx: Type 2 DM - Controlled E11.9 Use twice daily as directed blood sugar diagnostic (BLOOD GLUCOSE TEST) test strip Test blood sugar(s) 2 times daily. Dx: Type 2 DM - Controlled E11.9 Insulin: No TRUETEST TEST STRIPS test strip TEST twice a day lancets (TRUEPLUS LANCETS) 30 gauge misc Test twice daily Dx: 250.02 No current facility-administered medications for this visit. ALLERGIES: ALLERGIES Allergen Reactions - Lyrica [Pregabalin] Anaphylaxis Not sure if accurate. Can take gabapentin. Patient is unsure of reaction. - Accupril [Quinapril* Intolerance dizziness - Amlodipine Swelling Leg edema - Atenolol Swelling - Effexor [Venlafaxin* swelling high blood pressure - Januvia [Sitaglipti* GI Upset, Other: See Comments Patient states she couldn't eat - Metoprolol Swelling - Mobic [Meloxicam] GI Upset - Prozac [Fluoxetine * Intolerance tremor - Risperidone Mental Status Change - Seroquel [Quetiapin* hypertension,swelling - Vancomycin Itching, Other: See Comments red all over - Vioxx [Rofecoxib] GI Upset - Wellbutrin [Bupropi* Intolerance nightmares PAST MEDICAL HISTORY Diagnosis Date - Abnormal glandular Papanicolaou smear of cervix 05/30/05 ABNL GLANDULAR PAP SMEAR CERVIX - Acute gastritis without mention of hemorrhage - Anxiety state, unspecified - Arrhythmia - Chronic cholecystitis - Chronic obstructive pulmonary disease (COPD) (HCC) - Congestive heart failure (HCC) 10/03/2011 - Diabetes (HCC) - diabetes II 2010 - Diaphragmatic hernia without mention of obstruction or gangrene - Dysthymic disorder Depression (non-psychotic) - Esophageal reflux - Essential hypertension, benign - Generalized OA - Localized osteoarthrosis not specified whether primary or secondary, lower leg - Major depressive disorder, recurrent episode - Mucous polyp of cervix 07/19/05 - Other and unspecified anterior pituitary hyperfunction 10/13/05 elevated prolactin level-was normal in 2012 - PMH - PAST MEDICAL HISTORY OF sleep apnea - PMH - PAST MEDICAL HISTORY OF sleep apnea - SVT (supraventricular tachycardia) (HCC) - 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 PAST SURGICAL HISTORY Procedure Laterality Date - CERVICAL BIOPSY OR EXCISION 07/19/05 endocervical polyp - COLONOSCOP W/ OR W/O [facility] SPEC 01/09/2012 Colonoscopy repeat 10 years - COLPOSCOPY (VAGINOSCOPY) Colposcopy - EGD W/O [facility] SPECIMEN W/BX 01/16/07 - EGD W/O OR W/BRUSH/WASH 01/09/2012 EGD - HYSTEROSCOPY DX 12/17/2014 [facility] - LAP CHOLECYSTECT/CHOLANGIOGRAPHY 05/15/08 FAMILY HISTORY Problem Relation Age of Onset - Hypertension Mother - Heart Mother concha stroke - Diabetes Mother - Stroke Mother Massive- - Arthritis Mother Osteoarthritis - Hypertension Father - COPD Father - Hypertension Sister 2 - Hypertension Brother 3 - Heart Brother triple bypass at 48 - Heart Maternal Aunt - Heart Maternal Uncle - Diabetes Brother 3 Brother's with diabetes - Diabetes Sister - Arthritis Sister - Arthritis Brother - Arthritis Brother - Arthritis Brother Social History Marital status: Single Spouse name: Years of education: 9 Number of children: 0 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 REVIEW OF SYSTEMS All other reviewed and negative other than HPI. HEALTH MAINTENANCE: Reviewed health maintenance issues today and recommended the following in detail. MAMMOGRAM due on 11/16/2016 VITALS: BP 128/82 Pulse 79 Temp 36.7 ?C (98 ?F) (Tympanic) Resp 16 LMP 12/11/2008 Last 4 Encounter Wt Readings: Date: Wt: 07/20/2017 182 kg (401 lb 3.2 oz) 06/29/2017 179.6 kg (396 lb) 06/25/2017 181 kg (399 lb) 04/10/2016 175.1 kg (386 lb) PHYSICAL EXAMINATION: General appearance: Well appearing, alert, in no acute distress, well-hydrated, well nourished. Skin: Skin color, texture, turgor normal, no suspicious rashes or lesions, cellulitis is gone. Does have a left buttock vascular lesion. Suggested she could have it taken off at a later date. Given size and location, ? Surgery Lungs: Lungs clear to auscultation. No wheezing, rhonchi, rales Heart: RRR without murmur, gallop, or rubs. No ectopy Abdomen: Normal abdominal exam, Abdomen soft, non-tender. Bowel sounds normal. No masses, organomegaly ASSESSMENT/PLAN: 1. Cellulitis of buttock, right - ICD9: 682.5, ICD10: L03.317 (primary diagnosis) - recheck labs. As above. Call if recurs. - CBC + DIFF - BASIC METABOLIC PNL 2. Low back pain, unspecified back pain laterality, unspecified chronicity, with sciatica presence unspecified - ICD9: 724.2, ICD10: M54.5 - BACLOFEN 10 MG TABLET 3. Visit for screening mammogram - ICD9: V76.12, ICD10: Z12.31 - Follow up for annual exam in one year. - [facility] SCREENING 4. Obesity, Class III, BMI 40-49.9 (morbid obesity) (HCC) - ICD9: 278.01, ICD10: E66.01 - work on weight reduction 5. Morbid obesity (HCC) - ICD9: 278.01, ICD10: E66.01 6. Obstructive sleep apnea - ICD9: 327.23, ICD10: G47.33 7. Essential hypertension, benign - ICD9: 401.1, ICD10: I10 - good control - Goal of BP <140/90 8. Congestive heart failure, unspecified HF chronicity, unspecified heart failure type (HCC) - ICD9: 428.0, ICD10: I50.9 - continue meds - SPIRONOLACTONE 25 MG TABLET - FUROSEMIDE 20 MG TABLET 9. Type 2 diabetes mellitus without complication, unspecified whether computer terminal operator insulin use (HCC) - ICD9: 250.00, ICD10: E11.9 - start insulin and adjust every few days. Call with a list of sugars on Sunday - GLIMEPIRIDE 4 MG TABLET - LINAGLIPTIN 5 MG TABLET 10. 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 11. Anxiety state - ICD9: 300.00, ICD10: F41.1 -continue meds. - DULOXETINE 60 MG CAPSULE,DELAYED RELEASE 12. SVT (supraventricular tachycardia) (HCC) - ICD9: 427.89, ICD10: I47.1 13. GERD without esophagitis - ICD9: 530.81, ICD10: K21.9 - RANITIDINE 150 MG TABLET Vincent Herbert MD CNOV Observed: 08/10/2017 Status: COMPLETED Source: [facility] 8:00 AM [facility] REPOSITORY Office Visit (FAMPWS) KATHLEEN KHAN V ([id number]) 1960 F Date Time Provider Department 08/10/17 8:00 AM [facility] During your visit today, we recorded the following information about you: Temperature Pulse Respiration Blood pressure 98 degrees 79/minute 16/minute 128/82 Vincent Herbert MD 08/10/2017 9:11 AM Signed TRANSITION CARE MANAGEMENT (TCM) INITIAL CONTACT [facility] ? Provider Action/FYI: Feels weak and run down, racing heart. Pt has been taking temp, rangng 97-98. Wound looks good, improving. Physical therapist came out on Sat for Intake evaluation and checked her pulse ox: 94% at rest, 76% after walking to the kitchen. Pt has custodial coming today to do intake evaluation. Pt states that while admitted, her blood pressure was running low at 80/50, 80/44 ? ? Initial contact with patient post discharge, spoke to patient. Patient identified by name and . ? SUMMARY: -Pt discharged from [facility] on 08/03/17. -Admitted for: Cellulitis ? Do you have a hospital follow up appointment with your PCP? Appointment on 08/10/[address] Herbert. Yes. Remind patient of appointment date, time, and location. If not within 14 calendar days of discharge - please reschedule accordingly. ? MEDICATIONS: Many patients have questions or concerns about their medications once they are home. Were you prescribed any new medications? Yes If yes, what are those medications? Augmentin 875-125 mg BID for 10 days ? Were you told to hold any medications? No Were any of your medications discontinued? No ? Do you have any questions about getting or taking your medications? No ? Your discharge instructions/After visit Summary (AVS) are important in guiding you through the recovery process. Is there anything I might help you understand? No ? Do you have all the necessary equipment and supplies at home? Yes ? Medical records from recent hospitalization: Placed in file folder for upcoming appointment ? Patient presents with: Hospital Follow Up: [facility] admitted on 08/01/17 for cellulitis HPI: Patient presents today for office visit for TCM visit. HOSPITAL/ER FOLLOW UP: Reason for visit: cellulitis Which facility: [facility] Date of visit: 08/01-08/03 Diagnosis: cellulitis of buttock, flank. DM Testing done: labs, placed on zosyn and vanco and switched to augmentin. Metformin stopped. Insulin ordered but has not taken yet. Current symptoms: sugars still up. Buttock and flank feels better. No fever or chills. Discussed keeping seat cushioned and frequent position changes and moving as well as weight loss. MEDICATIONS: Current Outpatient Prescriptions: insulin detemir U-100 (LEVEMIR FLEXTOUCH U-100 INSULN) 100 unit/mL (3 mL) inpn injection Inject 5 Units subcutaneously daily at bedtime. primidone (MYSOLINE) 50 mg tablet TAKE ONE TABLET ONCE DAILY AT BEDTIME indomethacin (INDOCIN) 25 mg capsule Take 1 capsule by mouth twice daily as needed. gabapentin (NEURONTIN) 300 mg capsule Take 1 capsule by mouth twice daily for 30 days. HYDROcodone-acetaminophen (NORCO) 5-325 mg per tablet TAKE ONE TABLET TWICE DAILY glimepiride (AMARYL) 4 mg tablet Take 1 tablet by mouth daily with breakfast. baclofen (LIORESAL) 10 mg tablet Take 1 tablet by mouth twice daily. linagliptin (TRADJENTA) 5 mg tab Take 1 tablet by mouth once daily. spironolactone (ALDACTONE) 25 mg tablet Take 1 tablet by mouth once daily. ranitidine (ZANTAC) 150 mg tablet Take 1 tablet by mouth twice daily. furosemide (LASIX) 20 mg tablet Take 1 tablet by mouth once daily. DULoxetine (CYMBALTA) 60 mg capsule Take 1 capsule by mouth once daily. traZODone (DESYREL) 50 mg tablet Take 0.5 tablets by mouth daily at bedtime. ARIPiprazole (ABILIFY) 10 mg tablet Take 1 tablet by mouth once daily. nystatin (MYCOSTATIN) cream Apply 1 application to affected area twice daily. potassium chloride ER (K-DUR, KLOR-CON) 10 mEq tablet Take 1 tablet by mouth once daily. nitroglycerin sublingual (NITROQUICK) 0.4 mg SL tablet Dissolve 1 tablet under the tongue as needed. FOR CHEST PAIN. IF NO RELIEF CALL 911 polyethylene glycol 3350 (MIRALAX, GLYCOLAX) 17 gram/dose powder Take 17 g by mouth once daily. cetirizine 5 mg tablet Take 10 mg by mouth once daily. aspirin, enteric coated (ECOTRIN LOW STRENGTH) 81 mg EC tablet Take 1 tablet by mouth once daily. Insulin Hamlin, Disposable, (BD ULTRA-FINE MADI PEN NEEDLE) 32 gauge x 32 ndle Use one needle for each dose. 1/day. Blood-Glucose Meter monitoring kit Glucose Meter of Choice - Kit - Dx: Type 2 DM - Controlled E11.9 Use twice daily as directed blood sugar diagnostic (BLOOD GLUCOSE TEST) test strip Test blood sugar(s) 2 times daily. Dx: Type 2 DM - Controlled E11.9 Insulin: No TRUETEST TEST STRIPS test strip TEST twice a day lancets (TRUEPLUS LANCETS) 30 gauge misc Test twice daily Dx: 250.02 No current facility-administered medications for this visit. ALLERGIES: ALLERGIES Allergen Reactions - Lyrica [Pregabalin] Anaphylaxis Not sure if accurate. Can take gabapentin. Patient is unsure of reaction. - Accupril [Quinapril* Intolerance dizziness - Amlodipine Swelling Leg edema - Atenolol Swelling - Effexor [Venlafaxin* swelling high blood pressure - Januvia [Sitaglipti* GI Upset, Other: See Comments Patient states she couldn't eat - Metoprolol Swelling - Mobic [Meloxicam] GI Upset - Prozac [Fluoxetine * Intolerance tremor - Risperidone Mental Status Change - Seroquel [Quetiapin* hypertension,swelling - Vancomycin Itching, Other: See Comments red all over - Vioxx [Rofecoxib] GI Upset - Wellbutrin [Bupropi* Intolerance nightmares PAST MEDICAL HISTORY Diagnosis Date - Abnormal glandular Papanicolaou smear of cervix 05/30/05 ABNL GLANDULAR PAP SMEAR CERVIX - Acute gastritis without mention of hemorrhage - Anxiety state, unspecified - Arrhythmia - Chronic cholecystitis - Chronic obstructive pulmonary disease (COPD) ([facility]) - Congestive heart failure ([facility]) 10/03/2011 - Diabetes ([facility]) - diabetes II 2010 - Diaphragmatic hernia without mention of obstruction or gangrene - Dysthymic disorder Depression (non-psychotic) - Esophageal reflux - Essential hypertension, benign - Generalized OA - Localized osteoarthrosis not specified whether primary or secondary, lower leg - Major depressive disorder, recurrent episode - Mucous polyp of cervix 07/19/05 - Other and unspecified anterior pituitary hyperfunction 10/13/05 elevated prolactin level-was normal in 2012 - PMH - PAST MEDICAL HISTORY OF sleep apnea - PMH - PAST MEDICAL HISTORY OF sleep apnea - SVT (supraventricular tachycardia) (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 PAST SURGICAL HISTORY Procedure Laterality Date - CERVICAL BIOPSY OR EXCISION 07/19/05 endocervical polyp - COLONOSCOP W/ OR W/O [facility] SPEC 01/09/2012 Colonoscopy repeat 10 years - COLPOSCOPY (VAGINOSCOPY) Colposcopy - EGD W/O [facility] SPECIMEN W/BX 01/16/07 - EGD W/O OR W/BRUSH/WASH 01/09/2012 EGD - HYSTEROSCOPY DX 12/17/2014 [facility] - LAP CHOLECYSTECT/CHOLANGIOGRAPHY 05/15/08 FAMILY HISTORY Problem Relation Age of Onset - Hypertension Mother - Heart Mother concha stroke - Diabetes Mother - Stroke Mother Massive- - Arthritis Mother Osteoarthritis - Hypertension Father - COPD Father - Hypertension Sister 2 - Hypertension Brother 3 - Heart Brother triple bypass at 48 - Heart Maternal Aunt - Heart Maternal Uncle - Diabetes Brother 3 Brother's with diabetes - Diabetes Sister - Arthritis Sister - Arthritis Brother - Arthritis Brother - Arthritis Brother Social History Marital status: Single Spouse name: Years of education: 9 Number of children: 0 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 REVIEW OF SYSTEMS All other reviewed and negative other than HPI. HEALTH MAINTENANCE: Reviewed health maintenance issues today and recommended the following in detail. MAMMOGRAM due on 11/16/2016 VITALS: BP 128/82 Pulse 79 Temp 36.7 ?C (98 ?F) (Tympanic) Resp 16 LMP 12/11/2008 Last 4 Encounter Wt Readings: Date: Wt: 07/20/2017 182 kg (401 lb 3.2 oz) 06/29/2017 179.6 kg (396 lb) 06/25/2017 181 kg (399 lb) 04/10/2016 175.1 kg (386 lb) PHYSICAL EXAMINATION: General appearance: Well appearing, alert, in no acute distress, well-hydrated, well nourished. Skin: Skin color, texture, turgor normal, no suspicious rashes or lesions, cellulitis is gone. Does have a left buttock vascular lesion. Suggested she could have it taken off at a later date. Given size and location, ? Surgery Lungs: Lungs clear to auscultation. No wheezing, rhonchi, rales Heart: RRR without murmur, gallop, or rubs. No ectopy Abdomen: Normal abdominal exam, Abdomen soft, non-tender. Bowel sounds normal. No masses, organomegaly ASSESSMENT/PLAN: 1. Cellulitis of buttock, right - ICD9: 682.5, ICD10: L03.317 (primary diagnosis) - recheck labs. As above. Call if recurs. - CBC + DIFF - BASIC METABOLIC PNL 2. Low back pain, unspecified back pain laterality, unspecified chronicity, with sciatica presence unspecified - ICD9: 724.2, ICD10: M54.5 - BACLOFEN 10 MG TABLET 3. Visit for screening mammogram - ICD9: V76.12, ICD10: Z12.31 - Follow up for annual exam in one year. - [facility] SCREENING 4. Obesity, Class III, BMI 40-49.9 (morbid obesity) ([facility]) - ICD9: 278.01, ICD10: E66.01 - work on weight reduction 5. Morbid obesity ([facility]) - ICD9: 278.01, ICD10: E66.01 6. Obstructive sleep apnea - ICD9: 327.23, ICD10: G47.33 7. Essential hypertension, benign - ICD9: 401.1, ICD10: I10 - good control - Goal of BP <140/90 8. Congestive heart failure, unspecified HF chronicity, unspecified heart failure type ([facility]) - ICD9: 428.0, ICD10: I50.9 - continue meds - SPIRONOLACTONE 25 MG TABLET - FUROSEMIDE 20 MG TABLET 9. Type 2 diabetes mellitus without complication, unspecified whether computer terminal operator insulin use ([facility]) - ICD9: 250.00, ICD10: E11.9 - start insulin and adjust every few days. Call with a list of sugars on Sunday - GLIMEPIRIDE 4 MG TABLET - LINAGLIPTIN 5 MG TABLET 10. Pituitary hyperfunction ([facility]) - ICD9: 253.1, ICD10: E22.9 - stable. 11. Anxiety state - ICD9: 300.00, ICD10: F41.1 -continue meds. - DULOXETINE 60 MG CAPSULE,DELAYED RELEASE 12. SVT (supraventricular tachycardia) ([facility]) - ICD9: 427.89, ICD10: I47.1 13. GERD without esophagitis - ICD9: 530.81, ICD10: K21.9 - RANITIDINE 150 MG TABLET MD Vincent Uribe MD 08/10/2017 8:53 AM Signed Call Sunday with list of sugars Referring Provider: [facility] [[id number]] Allergies As of Date: 08/10/2017 Noted Allergy Reaction LYRICA (PREGABALIN) 08/05/2012 10 - Anaphylaxis Comments: Not sure if accurate. Can take gabapentin. Patient is unsure of reaction. ACCUPRIL (QUINAPRIL HCL) 08/12/2005 5 - Intolerance Comments: dizziness AMLODIPINE 04/24/2008 7 - Swelling Comments: Leg edema ATENOLOL 09/29/2010 7 - Swelling EFFEXOR (VENLAFAXINE HCL) 09/22/2005 Comments: swelling high blood pressure JANUVIA (SITAGLIPTIN) 09/21/2011 8 - GI Upset 14 - Other: See Comments Comments: Patient states she couldn't eat METOPROLOL 09/21/2009 7 - Swelling MOBIC (MELOXICAM) 08/12/2005 8 - GI Upset PROZAC (FLUOXETINE HCL) 08/12/2005 5 - Intolerance Comments: tremor RISPERIDONE 12/22/2009 1 - Mental Status Change SEROQUEL (QUETIAPINE FUMARATE) 10/05/2006 Comments: hypertension,swelling VANCOMYCIN 08/10/2017 9 - Itching 14 - Other: See Comments Comments: red all over VIOXX (ROFECOXIB) 08/12/2005 8 - GI Upset WELLBUTRIN (BUPROPION HCL) 08/12/2005 5 - Intolerance Comments: nightmares Date Reviewed: 07/20/2017 Reviewed by: Winnie Overton MA - Fully Assessed Reason for Visit: Hospital Follow Up [177] Cmt: [facility] admitted on 08/01/17 for cellulitis Primary Visit Diagnosis:Cellulitis of buttock, right [L03.317] Other Visit Diagnoses:Low back pain, unspecified back pain laterality, unspecified chronicity, with sciatica presence unspecified [M54.5] Visit for screening mammogram [Z12.31] Obesity, Class III, BMI 40-49.9 (morbid obesity) ([facility]) [E66.01] Morbid obesity (HCC) [E66.01] Obstructive sleep apnea [G47.33] Essential hypertension, benign [I10] Congestive heart failure, unspecified HF chronicity, unspecified heart failure type (HCC) [I50.9] Type 2 diabetes mellitus without complication, unspecified whether computer terminal operator insulin use (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) [I47.1] GERD without esophagitis [K21.9] Order(s):nystatin (MYCOSTATIN) creamApply 1 application to affected area twice daily.Disp: 1 TubeRfl: 1 baclofen (LIORESAL) 10 mg tabletTake 1 tablet by mouth twice daily.Disp: 60 tabletRfl: 1 linagliptin (TRADJENTA) 5 mg tabTake 1 tablet by mouth once daily.Disp: 90 tabletRfl: 3 spironolactone (ALDACTONE) 25 mg tabletTake 1 tablet by mouth once daily.Disp: 90 tabletRfl: 3 ranitidine (ZANTAC) 150 mg tabletTake 1 tablet by mouth twice daily.Disp: 180 tabletRfl: 3 furosemide (LASIX) 20 mg tabletTake 1 tablet by mouth once daily.Disp: 90 tabletRfl: 3 DULoxetine (CYMBALTA) 60 mg capsuleTake 1 capsule by mouth once daily.Disp: 90 capsuleRfl: 3 SONNY SCREENING [[id number]] Order #: [id number] FUTURE CBC + DIFF [SQCBCDIF] Order #: [id number] FUTURE BASIC METABOLIC PNL [SQBMP] Order #: [id number] FUTURE Prescriptions as of 08/10/2017 Sig: NYSTATIN 100,000 UNIT/GRAM TO* Apply 1 application to affect* BACLOFEN 10 MG TABLET Take 1 tablet by mouth twice * LINAGLIPTIN 5 MG TABLET Take 1 tablet by mouth once d* SPIRONOLACTONE 25 MG TABLET Take 1 tablet by mouth once d* RANITIDINE 150 MG TABLET Take 1 tablet by mouth twice * FUROSEMIDE 20 MG TABLET Take 1 tablet by mouth once d* DULOXETINE 60 MG CAPSULE,JODI* Take 1 capsule by mouth once * X GLIMEPIRIDE 4 MG TABLET Take 1 tablet by mouth daily * X INSULIN DETEMIR (U-100) 100 U* Inject 5 Units subcutaneously* PRIMIDONE 50 MG TABLET TAKE ONE TABLET ONCE DAILY AT* X INDOMETHACIN 25 MG CAPSULE Take 1 capsule by mouth twice* GABAPENTIN 300 MG CAPSULE Take 1 capsule by mouth twice* HYDROCODONE 5 MG-ACETAMINOPHE* TAKE ONE TABLET TWICE DAILY TRAZODONE 50 MG TABLET Take 0.5 tablets by mouth padmini* ARIPIPRAZOLE 10 MG TABLET Take 1 tablet by mouth once d* POTASSIUM CHLORIDE ER 10 MEQ * Take 1 tablet by mouth once d* NITROGLYCERIN 0.4 MG SUBLINGU* Dissolve 1 tablet under the t* POLYETHYLENE GLYCOL 3350 17 G* Take 17 g by mouth once daily. X CETIRIZINE 5 MG TABLET Take 10 mg by mouth once roseanna* ASPIRIN 81 MG TABLET,DELAYED * Take 1 tablet by mouth once d* PEN NEEDLE, DIABETIC 32 GAUGE* Use one needle for each dose.* BLOOD SUGAR DIAGNOSTIC STRIPS Test blood sugar(s) 2 times d* X BLOOD-GLUCOSE METER KIT Glucose Meter of Choice - Kit* TRUETEST TEST STRIPS TEST twice a day LANCETS 30 GAUGE Test twice daily Dx: 250.02 Problem List As Of Date 08/10/2017 Noted Resolved Major depressive disorder, recurrent episode, u*INVALID FOR*11/24/2014 Priority: A More... Anxiety state [F41.1] INVALID FOR* BENIGN HYPERTENSION [I10] INVALID FOR* OSTEOARTHROS NOS-UNSPEC [M19.90] INVALID FOR*02/07/2007 ABNL GLANDULAR PAP SMEAR CERVIX [R87.619] INVALID FOR* HYPERPROLACTINEMIA [E22.9] INVALID FOR* IRREGULAR MENSTRUATION [N92.6] INVALID FOR* ESOPHAGEAL REFLUX [K21.9] INVALID FOR* ACUTE GASTRITIS W/O HEMORRHAGE [K29.00] INVALID FOR*02/07/2007 DIAPHRAGMATIC HERNIA [K44.9] INVALID FOR* Unspecified gastritis and gastroduodenitis with*INVALID FOR*07/24/2016 Localized osteoarthrosis not specified whether *INVALID FOR*07/24/2016 Priority: A More... Pain in joint, site unspecified [M25.50] INVALID FOR*07/24/2016 Routine general medical examination at a health*INVALID FOR*11/29/2011 Class: Chronic More... Routine gynecological examination [Z01.419] INVALID FOR*11/29/2011 Class: Chronic More... More... Morbid obesity [E66.01] INVALID FOR* Priority: Very Severe Hyperprolactinemia [E22.1] INVALID FOR*01/30/2012 Obstructive sleep apnea [G47.33] INVALID FOR* Priority: Severe More... Medication side effects [T88.7XXA] INVALID FOR*08/10/2017 SVT (supraventricular tachycardia) [I47.1] Priority: A Type II or unspecified type diabetes mellitus w*INVALID FOR*04/10/2012 Priority: Moderate More... Congestive heart failure [I50.9] INVALID FOR* Spondylolisthesis [M43.10] INVALID FOR* Lumbar facet arthropathy [M46.96] INVALID FOR* DDD (degenerative disc disease), lumbar [M51.36]INVALID FOR* Diabetes mellitus [E11.9] INVALID FOR*11/24/2014 DDD (degenerative disc disease), cervical [M50.*INVALID FOR* DM (diabetes mellitus) (HCC) [E11.9] INVALID FOR* PMB (postmenopausal bleeding) [N95.0] INVALID FOR* Dysthymia [F34.1] INVALID FOR* Major depressive disorder, recurrent episode, m*INVALID FOR* More... Pain disorder with psychological factors [F45.4*INVALID FOR* Diffuse myofascial pain syndrome [M79.1] INVALID FOR* Bilateral primary osteoarthritis of knee [M17.0]INVALID FOR* Obesity, Class III, BMI >= 40 [E66.01] INVALID FOR* Other instructions from your clinician: Call Sunday with list of sugars Prescriptions ordered this encounter Disp Refills Start End NYSTATIN 100,000 UNIT/GRAM TOPICAL C* 1 Tu* 1 08/10/2017 Route: TOPICAL Sig: Apply 1 application to affected area twice daily. GLIMEPIRIDE 4 MG TABLET 30 t* 11 08/10/2017 09/24/2017 Route: ORAL Sig: Take 1 tablet by mouth daily with breakfast. BACLOFEN 10 MG TABLET 60 t* 1 08/10/2017 Route: ORAL Sig: Take 1 tablet by mouth twice daily. LINAGLIPTIN 5 MG TABLET 90 t* 3 08/10/2017 Route: ORAL Sig: Take 1 tablet by mouth once daily. SPIRONOLACTONE 25 MG TABLET 90 t* 3 08/10/2017 Route: ORAL Sig: Take 1 tablet by mouth once daily. RANITIDINE 150 MG TABLET 180 * 3 08/10/2017 Route: ORAL Sig: Take 1 tablet by mouth twice daily. FUROSEMIDE 20 MG TABLET 90 t* 3 08/10/2017 Route: ORAL Sig: Take 1 tablet by mouth once daily. DULOXETINE 60 MG CAPSULE,DELAYED REL* 90 c* 3 08/10/2017 Route: ORAL Sig: Take 1 capsule by mouth once daily. Medications Discontinued During This Encounter nystatin (MYCOSTATIN) cream 1 Tu* 1 12/01/2015 08/10/2017 Route: TOPICAL Sig: Apply 1 application to affected area twice daily. Disc: Reason for discontinue is not on file. glimepiride (AMARYL) 4 mg tablet 30 t* 11 08/24/2016 08/10/2017 Route: ORAL Sig: Take 1 tablet by mouth daily with breakfast. Disc: Reason for discontinue is not on file. baclofen (LIORESAL) 10 mg tablet 60 t* 1 07/24/2016 08/10/2017 Route: ORAL Sig: Take 1 tablet by mouth twice daily. Disc: Reason for discontinue is not on file. linagliptin (TRADJENTA) 5 mg tab 90 t* 3 07/04/2016 08/10/2017 Route: ORAL Sig: Take 1 tablet by mouth once daily. Disc: Reason for discontinue is not on file. spironolactone (ALDACTONE) 25 mg tab* 90 t* 3 07/04/2016 08/10/2017 Route: ORAL Sig: Take 1 tablet by mouth once daily. Disc: Reason for discontinue is not on file. ranitidine (ZANTAC) 150 mg tablet 180 * 3 07/04/2016 08/10/2017 Route: ORAL Sig: Take 1 tablet by mouth twice daily. Disc: Reason for discontinue is not on file. furosemide (LASIX) 20 mg tablet 90 t* 3 07/04/2016 08/10/2017 Route: ORAL Sig: Take 1 tablet by mouth once daily. Disc: Reason for discontinue is not on file. DULoxetine (CYMBALTA) 60 mg capsule 90 c* 3 07/04/2016 08/10/2017 Route: ORAL Sig: Take 1 capsule by mouth once daily. Disc: Reason for discontinue is not on file. Disposition: Return if symptoms worsen or fail to improve. Follow-up and Disposition History Recorded Encounter Status:Closed by [facility] Observ[facility]: 08/09/2017 Status: COMPLETED Source: [place] 12:00 AM [facility] REPOSIT[facility] KATHLEEN KHAN V ([id number]) 1960 F Date Time Provider Department 08/09/17 [facility] During your visit today, we recorded the following information about you: Celsa Cao LPN 08/09/2017 1:10 PM Signed Prior Authorization has been completed online at [employer] for Lantus, will await response. Please keep encounter open until final decision has been received and documented from insurance company. DOLL- [id number] Celsa Cao LPN 08/09/2017 1:17 PM Signed Levemir is preferred, highly unlikely PA will be approved until pt has tried this. Please advise. Celsa Herbert MD 08/09/2017 1:57 PM Signed Change to levemir Renan Ramirez LPN 08/09/2017 2:20 PM Signed Patient notified. Renan Ramirez LPN 08/10/2017 8:44 AM Signed Received a call from Markel segovia [facility] and the Lantus was denied. I let her know that levemir was called for patient and she was aware. Allergies As of Date: 08/09/2017 Noted Allergy Reaction LYRICA (PREGABALIN) 08/05/2012 10 - Anaphylaxis Comments: Not sure if accurate. Can take gabapentin. Patient is unsure of reaction. ACCUPRIL (QUINAPRIL HCL) 08/12/2005 5 - Intolerance Comments: dizziness AMLODIPINE 04/24/2008 7 - Swelling Comments: Leg edema ATENOLOL 09/29/2010 7 - Swelling EFFEXOR (VENLAFAXINE HCL) 09/22/2005 Comments: swelling high blood pressure JANUVIA (SITAGLIPTIN) 09/21/2011 8 - GI Upset 14 - Other: See Comments Comments: Patient states she couldn't eat METOPROLOL 09/21/2009 7 - Swelling MOBIC (MELOXICAM) 08/12/2005 8 - GI Upset PROZAC (FLUOXETINE HCL) 08/12/2005 5 - Intolerance Comments: tremor RISPERIDONE 12/22/2009 1 - Mental Status Change SEROQUEL (QUETIAPINE FUMARATE) 10/05/2006 Comments: hypertension,swelling VIOXX (ROFECOXIB) 08/12/2005 8 - GI Upset WELLBUTRIN (BUPROPION HCL) 08/12/2005 5 - Intolerance Comments: nightmares Date Reviewed: 07/20/2017 Reviewed by: Winnie Overton MA - Fully Assessed Reason for Visit: Insurance Authorization [[id number]] Cmt: lantus Order(s):insulin detemir U-100 (LEVEMIR FLEXTOUCH U-100 INSULN) 100 unit/mL (3 mL) inpn injectionInject 5 Units subcutaneously daily at bedtime.Disp: 5 PenRfl: 3 Prescriptions as of 08/09/2017 Sig: INSULIN DETEMIR (U-100) 100 U* Inject 5 Units subcutaneously* PRIMIDONE 50 MG TABLET TAKE ONE TABLET ONCE DAILY AT* INDOMETHACIN 25 MG CAPSULE Take 1 capsule by mouth twice* PEN NEEDLE, DIABETIC 32 GAUGE* Use one needle for each dose.* GABAPENTIN 300 MG CAPSULE Take 1 capsule by mouth twice* HYDROCODONE 5 MG-ACETAMINOPHE* TAKE ONE TABLET TWICE DAILY GLIMEPIRIDE 4 MG TABLET Take 1 tablet by mouth daily * BACLOFEN 10 MG TABLET Take 1 tablet by mouth twice * LINAGLIPTIN 5 MG TABLET Take 1 tablet by mouth once d* SPIRONOLACTONE 25 MG TABLET Take 1 tablet by mouth once d* RANITIDINE 150 MG TABLET Take 1 tablet by mouth twice * FUROSEMIDE 20 MG TABLET Take 1 tablet by mouth once d* DULOXETINE 60 MG CAPSULE,JODI* Take 1 capsule by mouth once * BLOOD-GLUCOSE METER KIT Glucose Meter of Choice - Kit* BLOOD SUGAR DIAGNOSTIC STRIPS Test blood sugar(s) 2 times d* TRUETEST TEST STRIPS TEST twice a day LANCETS 30 GAUGE Test twice daily Dx: 250.02 TRAZODONE 50 MG TABLET Take 0.5 tablets by mouth padmini* ARIPIPRAZOLE 10 MG TABLET Take 1 tablet by mouth once d* NYSTATIN 100,000 UNIT/GRAM TO* Apply 1 application to affect* POTASSIUM CHLORIDE ER 10 MEQ * Take 1 tablet by mouth once d* NITROGLYCERIN 0.4 MG SUBLINGU* Dissolve 1 tablet under the t* POLYETHYLENE GLYCOL 3350 17 G* Take 17 g by mouth once daily. CETIRIZINE 5 MG TABLET Take 10 mg by mouth once roseanna* ASPIRIN 81 MG TABLET,DELAYED * Take 1 tablet by mouth once d* Problem List As Of Date 08/09/2017 Noted Resolved Major depressive disorder, recurrent episode, u*INVALID FOR*11/24/2014 Priority: A More... Anxiety state [F41.1] INVALID FOR* BENIGN HYPERTENSION [I10] INVALID FOR* OSTEOARTHROS NOS-UNSPEC [M19.90] INVALID FOR*02/07/2007 ABNL GLANDULAR PAP SMEAR CERVIX [R87.619] INVALID FOR* HYPERPROLACTINEMIA [E22.9] INVALID FOR* IRREGULAR MENSTRUATION [N92.6] INVALID FOR* ESOPHAGEAL REFLUX [K21.9] INVALID FOR* ACUTE GASTRITIS W/O HEMORRHAGE [K29.00] INVALID FOR*02/07/2007 DIAPHRAGMATIC HERNIA [K44.9] INVALID FOR* Unspecified gastritis and gastroduodenitis with*INVALID FOR*07/24/2016 Localized osteoarthrosis not specified whether *INVALID FOR*07/24/2016 Priority: A More... Pain in joint, site unspecified [M25.50] INVALID FOR*07/24/2016 Routine general medical examination at a health*INVALID FOR*11/29/2011 Class: Chronic More... Routine gynecological examination [Z01.419] INVALID FOR*11/29/2011 Class: Chronic More... More... Morbid obesity [E66.01] INVALID FOR* Priority: Very Severe Hyperprolactinemia [E22.1] INVALID FOR*01/30/2012 Obstructive sleep apnea [G47.33] INVALID FOR* Priority: Severe More... Medication Side Effects [T88.7XXA] INVALID FOR* SVT (supraventricular tachycardia) [I47.1] Priority: A Type II or unspecified type diabetes mellitus w*INVALID FOR*04/10/2012 Priority: Moderate More... Congestive heart failure [I50.9] INVALID FOR* Spondylolisthesis [M43.10] INVALID FOR* Lumbar facet arthropathy [M46.96] INVALID FOR* DDD (degenerative disc disease), lumbar [M51.36]INVALID FOR* Diabetes mellitus [E11.9] INVALID FOR*11/24/2014 DDD (degenerative disc disease), cervical [M50.*INVALID FOR* DM (diabetes mellitus) (HCC) [E11.9] INVALID FOR* PMB (postmenopausal bleeding) [N95.0] INVALID FOR* Dysthymia [F34.1] INVALID FOR* Major depressive disorder, recurrent episode, m*INVALID FOR* More... Pain disorder with psychological factors [F45.4*INVALID FOR* Diffuse myofascial pain syndrome [M79.1] INVALID FOR* Bilateral primary osteoarthritis of knee [M17.0]INVALID FOR* Prescriptions ordered this encounter Disp Refills Start End INSULIN DETEMIR (U-100) 100 UNIT/ML * 5 Pen 3 08/09/2017 Route: SUBCUTANEOUS Sig: Inject 5 Units subcutaneously daily at bedtime. Medications Discontinued During This Encounter insulin glargine (LANTUS SOLOSTAR U-* 5 Pen 3 08/08/2017 08/09/2017 Route: SUBCUTANEOUS Sig: Inject 5 Units subcutaneously daily at bedtime. Disc: Reason for discontinue is not on file. Encounter Status:Closed by RENAN RAMIREZ LPN on 08/09/17 [place] Observed: 08/07/2017 Status: COMPLETED Source: [place] 12:00 AM [facility] KATHLEEN KHAN V ([id number]) 1960 F Date Time Provider Department 08/07/17 [facility] HERBERT [facility] During your visit today, we recorded the following information about you: Dari Lee, RN, RN 08/07/2017 9:32 AM Signed Pt called to report that her blood sugars are running around 245. Pt is taking antidotic for 2 more days but even before than it was still running high. Pt wanting to know if pcp will increase her medication or start pt on something new. Sanjay Abbasi PA-C 08/07/2017 6:26 PM Signed Please clarify metformin XL 500mg: is she taking BID? If so we can double the dose and send I new rx, recheck a1c in 3 months. Would like a1c below 7%. Let me know and I will place orders. Thanks, CARLOS Parra Cma 08/08/2017 10:05 AM Signed Spoke with patient who states she is not taking the metformin XL 500 mg at all. Patient states that she has not taken it for about 2 weeks due to severe diarrhea. Please advise Carolina Herbert MD 08/08/2017 11:48 AM Signed Ok, verify meds. If cannot take metformin, may need to start insulin. Has she ever given insulin? Brittany Valencia LPN 08/08/2017 12:16 PM Signed Patient willing to start insulin if that is what is needed. Verified her diabetes medications with her. Vincent Herbert MD 08/08/2017 1:32 PM Signed Start with 5 units of lantus a day. Call list on Sunday Allison Portillo Ma 08/08/2017 1:51 PM Signed Pt was left a vm to return call. Allison Ramirez LPN 08/08/2017 3:06 PM Signed SPoke with patient and she is taking Tradjenta 5 mg 1 daily and glimepiride 4 mg 1 daily. She is familiar with insulin had when she was in the hospital and has given her mother shots. 2 Prescriptions from today went to the wrong pharmacy, [facility] [place] . Please send to [facility] in [place]. She asked me to removed [facility] [place]. Had a 2 more prescriptions that need refilled primidone and indomethacin. Patient no longer uses ibuprofen. Renan Herbert MD 08/08/2017 3:40 PM Signed rx sent. Do not use indomethacin regularly. Just prn Allison Portillo Ma 08/08/2017 3:47 PM Signed Detailed vm left on pt's vm. Allison Portillo Ma Allergies As of Date: 08/07/2017 Noted Allergy Reaction LYRICA (PREGABALIN) 08/05/2012 10 - Anaphylaxis Comments: Not sure if accurate. Can take gabapentin. Patient is unsure of reaction. ACCUPRIL (QUINAPRIL HCL) 08/12/2005 5 - Intolerance Comments: dizziness AMLODIPINE 04/24/2008 7 - Swelling Comments: Leg edema ATENOLOL 09/29/2010 7 - Swelling EFFEXOR (VENLAFAXINE HCL) 09/22/2005 Comments: swelling high blood pressure JANUVIA (SITAGLIPTIN) 09/21/2011 8 - GI Upset 14 - Other: See Comments Comments: Patient states she couldn't eat METOPROLOL 09/21/2009 7 - Swelling MOBIC (MELOXICAM) 08/12/2005 8 - GI Upset PROZAC (FLUOXETINE HCL) 08/12/2005 5 - Intolerance Comments: tremor RISPERIDONE 12/22/2009 1 - Mental Status Change SEROQUEL (QUETIAPINE FUMARATE) 10/05/2006 Comments: hypertension,swelling VIOXX (ROFECOXIB) 08/12/2005 8 - GI Upset WELLBUTRIN (BUPROPION HCL) 08/12/2005 5 - Intolerance Comments: nightmares Date Reviewed: 07/20/2017 Reviewed by: Winnie Overton MA - Fully Assessed Reason for Visit: high blood sugars [Other] Primary Visit Diagnosis:Type 2 diabetes mellitus without complication, unspecified whether computer terminal operator insulin use (HCC) [E11.9] Other Visit Diagnosis:Low back pain, unspecified back pain laterality, unspecified chronicity, with sciatica presence unspecified [M54.5] Order(s):primidone (MYSOLINE) 50 mg tabletTAKE ONE TABLET ONCE DAILY AT BEDTIMEDisp: 30 tabletRfl: 11 indomethacin (INDOCIN) 25 mg capsuleTake 1 capsule by mouth twice daily as needed.Disp: 30 capsuleRfl: 0 Insulin Hamlin, Disposable, (BD ULTRA-FINE MADI PEN NEEDLE) 32 gauge x 5/32 ndleUse one needle for each dose. 1/day.Disp: 100 EachRfl: 11 Prescriptions as of 08/07/2017 Sig: PRIMIDONE 50 MG TABLET TAKE ONE TABLET ONCE DAILY AT* INDOMETHACIN 25 MG CAPSULE Take 1 capsule by mouth twice* PEN NEEDLE, DIABETIC 32 GAUGE* Use one needle for each dose.* X INSULIN GLARGINE (U-100) 100 * Inject 5 Units subcutaneously* GABAPENTIN 300 MG CAPSULE Take 1 capsule by mouth twice* HYDROCODONE 5 MG-ACETAMINOPHE* TAKE ONE TABLET TWICE DAILY GLIMEPIRIDE 4 MG TABLET Take 1 tablet by mouth daily * BACLOFEN 10 MG TABLET Take 1 tablet by mouth twice * LINAGLIPTIN 5 MG TABLET Take 1 tablet by mouth once d* SPIRONOLACTONE 25 MG TABLET Take 1 tablet by mouth once d* RANITIDINE 150 MG TABLET Take 1 tablet by mouth twice * FUROSEMIDE 20 MG TABLET Take 1 tablet by mouth once d* DULOXETINE 60 MG CAPSULE,JODI* Take 1 capsule by mouth once * BLOOD-GLUCOSE METER KIT Glucose Meter of Choice - Kit* BLOOD SUGAR DIAGNOSTIC STRIPS Test blood sugar(s) 2 times d* TRUETEST TEST STRIPS TEST twice a day LANCETS 30 GAUGE Test twice daily Dx: 250.02 TRAZODONE 50 MG TABLET Take 0.5 tablets by mouth padmini* ARIPIPRAZOLE 10 MG TABLET Take 1 tablet by mouth once d* NYSTATIN 100,000 UNIT/GRAM TO* Apply 1 application to affect* POTASSIUM CHLORIDE ER 10 MEQ * Take 1 tablet by mouth once d* NITROGLYCERIN 0.4 MG SUBLINGU* Dissolve 1 tablet under the t* POLYETHYLENE GLYCOL 3350 17 G* Take 17 g by mouth once daily. CETIRIZINE 5 MG TABLET Take 10 mg by mouth once roseanna* ASPIRIN 81 MG TABLET,DELAYED * Take 1 tablet by mouth once d* Problem List As Of Date 08/07/2017 Noted Resolved Major depressive disorder, recurrent episode, u*INVALID FOR*11/24/2014 Priority: A More... Anxiety state [F41.1] INVALID FOR* BENIGN HYPERTENSION [I10] INVALID FOR* OSTEOARTHROS NOS-UNSPEC [M19.90] INVALID FOR*02/07/2007 ABNL GLANDULAR PAP SMEAR CERVIX [R87.619] INVALID FOR* HYPERPROLACTINEMIA [E22.9] INVALID FOR* IRREGULAR MENSTRUATION [N92.6] INVALID FOR* ESOPHAGEAL REFLUX [K21.9] INVALID FOR* ACUTE GASTRITIS W/O HEMORRHAGE [K29.00] INVALID FOR*02/07/2007 DIAPHRAGMATIC HERNIA [K44.9] INVALID FOR* Unspecified gastritis and gastroduodenitis with*INVALID FOR*07/24/2016 Localized osteoarthrosis not specified whether *INVALID FOR*07/24/2016 Priority: A More... Pain in joint, site unspecified [M25.50] INVALID FOR*07/24/2016 Routine general medical examination at a health*INVALID FOR*11/29/2011 Class: Chronic More... Routine gynecological examination [Z01.419] INVALID FOR*11/29/2011 Class: Chronic More... More... Morbid obesity [E66.01] INVALID FOR* Priority: Very Severe Hyperprolactinemia [E22.1] INVALID FOR*01/30/2012 Obstructive sleep apnea [G47.33] INVALID FOR* Priority: Severe More... Medication Side Effects [T88.7XXA] INVALID FOR* SVT (supraventricular tachycardia) [I47.1] Priority: A Type II or unspecified type diabetes mellitus w*INVALID FOR*04/10/2012 Priority: Moderate More... Congestive heart failure [I50.9] INVALID FOR* Spondylolisthesis [M43.10] INVALID FOR* Lumbar facet arthropathy [M46.96] INVALID FOR* DDD (degenerative disc disease), lumbar [M51.36]INVALID FOR* Diabetes mellitus [E11.9] INVALID FOR*11/24/2014 DDD (degenerative disc disease), cervical [M50.*INVALID FOR* DM (diabetes mellitus) (HCC) [E11.9] INVALID FOR* PMB (postmenopausal bleeding) [N95.0] INVALID FOR* Dysthymia [F34.1] INVALID FOR* Major depressive disorder, recurrent episode, m*INVALID FOR* More... Pain disorder with psychological factors [F45.4*INVALID FOR* Diffuse myofascial pain syndrome [M79.1] INVALID FOR* Bilateral primary osteoarthritis of knee [M17.0]INVALID FOR* Prescriptions ordered this encounter Disp Refills Start End INSULIN GLARGINE (U-100) 100 UNIT/ML* 5 Pen 3 08/08/2017 08/08/2017 Route: SUBCUTANEOUS Sig: Inject 5 Units subcutaneously daily at bedtime. PEN NEEDLE, DIABETIC 32 GAUGE X 5/32 100 * 11 08/08/2017 08/08/2017 Sig: Use one needle for each dose. 1/day. PRIMIDONE 50 MG TABLET 30 t* 11 08/08/2017 Sig: TAKE ONE TABLET ONCE DAILY AT BEDTIME INDOMETHACIN 25 MG CAPSULE 30 c* 0 08/08/2017 Route: ORAL Sig: Take 1 capsule by mouth twice daily as needed. INSULIN GLARGINE (U-100) 100 UNIT/ML* 5 Pen 3 08/08/2017 08/09/2017 Route: SUBCUTANEOUS Sig: Inject 5 Units subcutaneously daily at bedtime. PEN NEEDLE, DIABETIC 32 GAUGE X 5/32 100 * 11 08/08/2017 Sig: Use one needle for each dose. 1/day. Medications Discontinued During This Encounter metFORMIN ER (GLUCOPHAGE XR) 500 mg * 60 t* 1 07/19/2017 08/08/2017 Route: ORAL Sig: Take 1 tablet by mouth once daily. After one week increase the dose to 2 tablets once daily Disc: Reason for discontinue is not on file. primidone (MYSOLINE) 50 mg tablet 30 t* 11 02/08/2016 08/08/2017 Sig: TAKE ONE TABLET ONCE DAILY AT BEDTIME Disc: Reason for discontinue is not on file. indomethacin (INDOCIN) 25 mg capsule 60 c* 3 08/24/2016 08/08/2017 Route: ORAL Sig: Take 1 capsule by mouth twice daily with meals. Hold while on Ibuprofen Patient taking differently: Take 25 mg by mouth twice daily with meals. Disc: Reason for discontinue is not on file. insulin glargine (LANTUS SOLOSTAR U-* 5 Pen 3 08/08/2017 08/08/2017 Route: SUBCUTANEOUS Sig: Inject 5 Units subcutaneously daily at bedtime. Disc: Reason for discontinue is not on file. Insulin Hamlin, Disposable, (BD ULT* 100 * 11 08/08/2017 08/08/2017 Sig: Use one needle for each dose. 1/day. Disc: Reason for discontinue is not on file. Encounter Status:Closed by ALLISON PORTILLO MA on 08/08/17 12 LEAD ELECTROCARDIOGRAM Observed: 08/06/2017 Status: F Source: [place] 8:59 AM [facility] REPOSITORY [facility] Cardiovascular Services [address] [place] [id number] Lead EKG 08/01/17 1815 MR#: [id number] Acct: [id number] Name: KATHLEEN KHAN V Rep #: [id number] : 1960 57 From: Tristan Maloney MD Attending Dr: Sadaf Honeycutt MD Status: DIS IN Ordering Dr: Claudia Gerardo Date: 08/01/17 Location: [facility] Sex: F C Admitted: 08/01/17 Test Reason : WEAKNESS Blood Pressure : / mmHG Vent. Rate : 106 BPM Atrial Rate : 106 BPM P-R Int : 142 ms QRS Dur : 084 ms QT Int : 332 ms P-R-T Axes : 042 006 031 degrees QTc Int : 441 ms Sinus tachycardia Otherwise normal ECG Confirmed by MICHEL SIMS, TRISTAN ([id number]), editor index KO ROMERO ([id number]) on 08/03/2017 2:47:13 PM Referred By: DR GERARDO Confirmed By:TRISTAN MALONEY MD 08/03/17 1447 Date Tristan Maloney MD CC: Sadaf Honeycutt MD; Claudia Gerardo; Vincent Herbert MD Signed DISCHARGE SUMMARY Observed: 08/04/2017 Status: F Source: [place] 5:04 PM [facility] REPOSITORY [facility] Medical Records Department [address] [place] [address] Discharge Summary 08/03/17 1125 MR#: [id number] Acct: [id number] Name: KATHLEEN KHAN V Rep #: [id number] : 1960 57 From: Sadaf Honeycutt MD PCP: Vincent Herbert MD Status: DIS IN Y Location: [facility] [place] [facility] [id number] Discharge Date and Diagnosis Date of Admission: 08/01/17 Date of Discharge: 08/03/17 - Primary Discharge Diagnosis Active and Suspected Problems Cellulitis (Acute) - Secondary Discharge Diagnosis Chronic Problems History of pneumonia (Chronic) JEREMÍAS (obstructive sleep apnea) (Chronic) Lumbosacral neuritis (Chronic) Esophageal reflux (Chronic) Morbid obesity (Chronic) Hypertension (Chronic) Hospital Course and Treatment Imaging Results: Clinical Impression(s) from Imaging Studies Chest X-Ray 08/01/17 18:50 IMPRESSION: No acute thoracic pathology. Electronically Signed: Danial Whatley, at 19:44 EDT Tel , Service support , None Operations: None Procedures: None Summary of Care Provided: 57-year-old female past medical history of super super morbid obesity, BMI of 75.2, type 2 DM, history of recurrent cellulitis comes in with an episode of cellulitis. 1. Sepsis secondary to right buttock/flank pain(leukocytosis and fever on arrival), received vancomycin and Zosyn in the ED, continue on IV cefazolin for possible suspected streptococcal and less likely staph aureus cellulitis, patient improved clinically, blood cultures negative. 2. Right buttock and flank cellulitis, recurrent, unclear etiology for this admission's cellulitis, patient improved remarkably, was discharged home on Augmentin to complete 1 week total antibiotics. Hygiene and daily bathing recommended. 3. Type II DM, was on Tradjenta and metformin, last HbA1c is is 7.5 4. Debility, due to multiple comorbidities and especially super super morbid obesity, and to receive home health care for PT OT and nursing. Discharge Diet: Low fat/ Low Cholesterol, 2000 mg Sodium Diet, Carb Control Diet Discharge Activity: Return to Normal Activity Call your doctor if you observe: Fever of 101 or Higher Home Medications: Medications to take at Discharge Aripiprazole 10 mg PO DAILY 12/02/14 Aspirin [Adult Low Dose Aspirin EC] 81 mg PO DAILY 12/02/14 Duloxetine HCl 60 mg PO DAILY 12/02/14 Furosemide 20 mg PO DAILY 12/02/14 Linagliptin [Tradjenta] 5 mg PO DAILY 12/02/14 Potassium Chloride [K-Dur] 10 meq PO DAILY 12/02/14 Ranitidine [Zantac] 150 mg PO BID 12/02/14 Spironolactone [Aldactone] 25 mg PO DAILY 12/02/14 Baclofen 10 mg PO BID 08/01/17 Diclofenac Sodium 75 mg PO BID 08/01/17 Gabapentin [Neurontin] 300 mg PO QHS 08/01/17 Primidone [Mysoline] 50 mg PO QHS 08/01/17 traZODone [Desyrel] 50 - 100 mg PO QHS PRN 08/01/17 Amoxicillin/Potassium Clav [Augmentin 875-125 Tablet] 1 ea PO BID #10 tab 08/03/17 Following Prescrptions Were Given to Patient: Amoxicillin/Potassium Clav [Augmentin 875-125 Tablet] 1 ea PO BID #10 tab Primary Care Physician: Vincent Herbert MD [Primary Care Provider] - Please follow up with your Primary Care Physician in: within 2 weeks Disposition: Home with Home Health Minutes spent on discharge:: 50 Patient Condition:: Stable Medical Necessity - Tobacco Use Smoking Status: Former smoker Tobacco Use: Non-smoker Meaningful Use Info Meaningful Use Diagnoses (Choose all that apply): None applicable Code Visit Inpatient E AND M: 97300 Disch Hosp 08/04/17 1704 <Electronically signed by Sadaf Honeycutt MD> Date Sadaf Honeycutt MD Cosigner Signature (if applicable): Date CC: Sadaf Honeycutt MD; Vincent Herbert MD Signed BEDSIDE GLUCOSE Collected: 08/03/2017 Status: F Source: [place] 11:30 AM [facility] REPOSITORY Order Comment: RESULT(S) PREVIOUSLY REPORTED ON MANUAL REQUISITION DURING DOWNTIME. TYPE CODE TESTS RESULT OUT OF REFERENCE UNITS RANGE LAB L501.080 70-110 mg/dL High BEDSIDE GLU 260 Result Comment: MANAGEMENT OF PATIENT CARE PER NURSING PROTOCOL Performed By: #### L501.080 #### [facility] Point of Care [address] [facility] [place] [address] DISCHARGE INSTRUCTION Observed: 08/03/2017 Status: F Source: [place] 11:25 AM [facility] REPOSITORY [facility] Medical Records Department [address] [place] [address] Instructions for Home/Discharge Instructions 08/03/17 1122 MR#: [id number] Acct: [id number] Name: KATHLEEN KHAN V Rep #: [id number] : 1960 57 From: Sadaf Honeycutt MD PCP: Vincent Herbert MD Status: ADM IN - Discharge Diagnoses Current Active Problems: Current Active and Chronic Problems Cellulitis (Acute) Reason(s) for Visit for Discharge Instructions: Right flank and buttocks redness You will use the following diet at home:: Calorie/Carbohydrate Controlled (specify 1200, 1400, etc), Cardiac Your food should be the consistency of: Regular Your liquids should be the consistency of: Regular/Thin Discharge Activity: Return to Normal Activity Call your doctor if you observe: Fever of 101 or Higher Additional Instructions: You are advised to complete your antibiotics. Continue general hygiene including daily bathing. Follow-up with your PCP with a log of your blood sugars Allergies/Adverse Reactions: Allergies vancomycin Allergy (Verified 08/02/17 05:42) Rash amlodipine Adverse Reaction (Verified 08/01/17 17:30) Unknown atenolol Adverse Reaction (Verified 08/01/17 17:30) Unknown bupropion HCl [From Wellbutrin] Adverse Reaction (Verified 08/01/17 17:30) Unknown fluoxetine HCl [From Prozac] Adverse Reaction (Verified 08/01/17 17:30) Unknown meloxicam [From Mobic] Adverse Reaction (Verified 08/01/17 17:30) Unknown metoprolol Adverse Reaction (Verified 08/01/17 17:30) Unknown pregabalin [From Lyrica] Adverse Reaction (Verified 08/01/17 17:30) Unknown quetiapine fumarate [From Seroquel] Adverse Reaction (Verified 08/01/17 17:30) Unknown quinapril HCl [From Accupril] Adverse Reaction (Verified 08/01/17 17:30) Unknown risperidone Adverse Reaction (Verified 08/01/17 17:30) Unknown rofecoxib [From Vioxx] Adverse Reaction (Verified 08/01/17 17:30) Unknown sitagliptin phosphate [From Januvia] Adverse Reaction (Verified 08/01/17 17:30) Unknown venlafaxine HCl [From Effexor] Adverse Reaction (Verified 08/01/17 17:30) Unknown Medications to take at Discharge Aripiprazole 10 mg PO DAILY 12/02/14 Aspirin [Adult Low Dose Aspirin EC] 81 mg PO DAILY 12/02/14 Duloxetine HCl 60 mg PO DAILY 12/02/14 Furosemide 20 mg PO DAILY 12/02/14 Linagliptin [Tradjenta] 5 mg PO DAILY 12/02/14 Potassium Chloride [K-Dur] 10 meq PO DAILY 12/02/14 Ranitidine [Zantac] 150 mg PO BID 12/02/14 Spironolactone [Aldactone] 25 mg PO DAILY 12/02/14 Baclofen 10 mg PO BID 08/01/17 Diclofenac Sodium 75 mg PO BID 08/01/17 Gabapentin [Neurontin] 300 mg PO QHS 08/01/17 Primidone [Mysoline] 50 mg PO QHS 08/01/17 traZODone [Desyrel] 50 - 100 mg PO QHS PRN 08/01/17 Amoxicillin/Potassium Clav [Augmentin 875-125 Tablet] 1 ea PO BID #10 tab 08/03/17 The following prescriptions were given: Amoxicillin/Potassium Clav [Augmentin 875-125 Tablet] 1 ea PO BID #10 tab Primary Care Physician: Vincent Herbert MD [Primary Care Provider] - Please follow up with your Primary Care Physician in: within 2 weeks Proposed Discharge Date: 08/03/17 08/03/17 1125 <Electronically signed by Sadaf Honeycutt MD> Date Sadaf Honeycutt MD CC: Vincent Herbert MD BEDSIDE GLUCOSE Collected: 08/03/2017 Status: F Source: [place] 6:46 AM [facility] REPOSITORY Order Comment: RESULT(S) PREVIOUSLY REPORTED ON MANUAL REQUISITION DURING DOWNTIME. TYPE CODE TESTS RESULT OUT OF REFERENCE UNITS RANGE LAB L501.080 70-110 mg/dL High BEDSIDE GLU 218 Result Comment: MANAGEMENT OF PATIENT CARE PER NURSING PROTOCOL Performed By: #### L501.080 #### [facility] Point of Care [address] [place] [address] BEDSIDE GLUCOSE Collected: 08/02/2017 Status: F Source: [place] 10:00 PM [facility] REPOSITORY Order Comment: RESULT(S) PREVIOUSLY REPORTED ON MANUAL REQUISITION DURING DOWNTIME. TYPE CODE TESTS RESULT OUT OF REFERENCE UNITS RANGE LAB L501.080 70-110 mg/dL High BEDSIDE GLU 252 Result Comment: MANAGEMENT OF PATIENT CARE PER NURSING PROTOCOL Performed By: #### L501.080 #### [facility] Point of Care [address] [place] [address] BEDSIDE GLUCOSE Collected: 08/02/2017 Status: F Source: [place] 10:43 AM [facility] REPOSITORY TYPE CODE TESTS RESULT OUT OF REFERENCE UNITS RANGE LAB L501.080 70-110 mg/dL High BEDSIDE GLU 242 Result Comment: MANAGEMENT OF PATIENT CARE PER NURSING PROTOCOL Performed By: #### L501.080 #### [facility] Point of Care [address] [place] [address] BASIC METABOLIC Collected: 08/02/2017 Status: F Source: [place] PROFILE (BMP) 6:12 AM [facility] REPOSITORY TYPE CODE TESTS RESULT OUT OF RANGE REFERENCE UNITS LAB L501.0100 74-106 mg/dL High GLU 193 Result Comment: Fasting Glucose result greater than or equal to 126 mg/dL suggests DIABETES MELLITUS per A.D.A. criteria. Please note revised GLUCOSE reference range effective 2017. LAB L501.1000 7-18 mg/dL Normal BUN 11 LAB L501.1100 0.55-1.02 mg/dL Normal CREAT,SERUM 0.58 Result Comment: The validity of the calculated GFR AND GFRAA in patients over 70 years has not been determined. Clinical correlation is essential. LAB L501.1110 >60 mL/min Normal EST GFR 113 Result Comment: Non- GFR Calc LAB L501.1115 >60 mL/min Normal EST GFR - AA 136 Result Comment: GFR Calc LAB L501.1255 ml/min Normal Estimated CRCL 80.75 LAB L501.1300 10-20 RATIO Normal BUN/CRE 18.8 LAB L501.2200 8.5-10 mg/dL Low .1 CA 8.0 LAB L501.5300 136-14 mmol/L Normal 5 NA 139 LAB L501.5600 3.5-5. mmol/L Normal 1 K 3.6 LAB L501.5900 98-107 mmol/L Normal CL 106 LAB L501.6100 21.0-3 mmol/L Normal 2.0 CO2 28.0 LAB L501.6200 5-15 Normal GAP 5 Performed By: #### L500.2500 #### [facility] [address] [place], [place], [id number] CBC W/DIFF, AUTOMATED Collected: 08/02/2017 Status: F Source: [place] 6:12 AM [facility] REPOSITORY TYPE CODE TESTS RESULT OUT OF RANGE REFERENCE UNITS LAB L100.1000 4.4-11.0 K/mm3 Normal WBC 8.7 LAB L100.1200 4.2-5.4 M/mm3 Normal RBC 4.26 LAB L100.1300 12.0-15.0 g/dl Normal HGB 12.0 LAB L100.1400 37-47 % Low HCT 36.3 LAB L100.1500 81-99 fL Normal MCV 85.2 LAB L100.1600 27.0-32.0 pg Normal MCH 28.2 LAB L100.1700 32-36 g/gl Normal MCHC 33.1 LAB L100.1810 11.6-14.6 % Normal RDW CV 13.5 LAB L100.1820 35.1-43.9 fl Normal RDW SD 41.1 LAB L100.1900 150-450 K/mm3 Normal PLT 163 LAB L100.2000 6.2-12.0 fl Normal MPV 10.7 LAB L100.2100 47-70 % High NEUT% 89.6 LAB L100.2200 19-41 % Low LY% 5.2 LAB L100.2300 0-10 % Normal MONO% 3.9 LAB L100.2400 0-5 % Normal EO% 0.7 LAB L100.2500 0-1 % Normal BASO% 0.1 LAB L100.2550 0.0-0.9 % Normal IM GRAN % 0.500 Result Comment: IG% - Immature Granulocytes (promyelocytes, myelocytes and metamyelocytes) > 1% indicates that a LEFT SHIFT is Present. LAB L100.2620 2.0-7.7 X10 3/uL High Absolute Neut 7.8 LAB L100.2720 0.83-4.51 X10 3/ul Low Absolute Lymph 0.45 LAB L100.4500 Normal SMEAR COMMENT SCANNED Performed By: #### L100.0100 #### [facility] [address] [place], [address] HEMOGLOBIN A1C Collected: 08/02/2017 Status: F Source: [place] 6:00 AM [facility] REPOSITORY Order Comment: ADD ON H[address] [facility] @ [address] [place] [address] TYPE CODE TESTS RESULT OUT OF RANGE REFERENCE UNITS LAB L501.9985 4.2-6.3 % High HGB A1C 8.2 Performed By: #### L501.9985 #### [facility] [address] [place], [address] HISTORY AND PHYSICAL Observed: 08/01/2017 Status: F Source: [place] EXAM 11:19 PM [facility] REPOSITORY [facility] Medical Records Department [address] [place] [address] History and Physical 08/01/17 2312 MR#: [id number] Acct: [id number] Name: KATHLEEN KHAN V Rep #: [id number] : 1960 57 From: Zane Boyer DO PCP: Vincent Herbert MD Status: REG ER Y Location: ED Problem List (1) Cellulitis Status: Acute Qualifiers: Site of cellulitis: buttock Qualified Code(s): L03.317 - Cellulitis of buttock History of Present Illness Date of Admission: 08/01/17 Chief Complaint: flank and buttock pain. The patient is a 57 year old F morbidly obese woman who was in her normal state of health up until today where patient developed pain and swelling in her right side associated with high-grade fevers of 103 Fahrenheit. Patient has had similar episodes like this with cellulitis. Patient presented to the emergency room via EMS and have cellulitis and received a Zosyn and vancomycin. Patient does also state that she is short of breath as well. [] Past Medical History Past Medical History (Chronic Problems): Chronic Problems History of pneumonia (Chronic) JEREMÍAS (obstructive sleep apnea) (Chronic) Lumbosacral neuritis (Chronic) Esophageal reflux (Chronic) Morbid obesity (Chronic) Hypertension (Chronic) Allergies amlodipine Adverse Reaction (Verified 08/01/17 17:30) Unknown atenolol Adverse Reaction (Verified 08/01/17 17:30) Unknown bupropion HCl [From Wellbutrin] Adverse Reaction (Verified 08/01/17 17:30) Unknown fluoxetine HCl [From Prozac] Adverse Reaction (Verified 08/01/17 17:30) Unknown meloxicam [From Mobic] Adverse Reaction (Verified 08/01/17 17:30) Unknown metoprolol Adverse Reaction (Verified 08/01/17 17:30) Unknown pregabalin [From Lyrica] Adverse Reaction (Verified 08/01/17 17:30) Unknown quetiapine fumarate [From Seroquel] Adverse Reaction (Verified 08/01/17 17:30) Unknown quinapril HCl [From Accupril] Adverse Reaction (Verified 08/01/17 17:30) Unknown risperidone Adverse Reaction (Verified 08/01/17 17:30) Unknown rofecoxib [From Vioxx] Adverse Reaction (Verified 08/01/17 17:30) Unknown sitagliptin phosphate [From Januvia] Adverse Reaction (Verified 08/01/17 17:30) Unknown venlafaxine HCl [From Effexor] Adverse Reaction (Verified 08/01/17 17:30) Unknown Home Medications: Ambulatory Orders Medication Instructions Recorded Aripiprazole [Aripiprazole] 10 mg PO DAILY 12/02/14 Aspirin [Adult Low Dose Aspirin EC] 81 mg PO DAILY 12/02/14 Surgical History: cholecystectomy Lives: Alone Smoking Status: Former smoker Tobacco Use: Non-smoker Alcohol: None Drugs: None - *Family History Sibling History Items: Heart Disease Review of Systems Constitutional: Reports: Chills, Fever. Denies: Anorexia Eyes: Denies: Blurred vision, Double vision HEENT: Denies: Head Aches, Sinus Congestion, Sinus Drainage Cardiovascular: Denies: Chest Pain, Palpitations Respiratory: Reports: Shortness of Breath. Denies: Cough, Sputum production Gastrointestinal: Denies: Abdominal Pain, Nausea, Vomiting Genitourinary: Denies: Dysuria Musculoskeletal: Denies: Joint Pain, Joint Tenderness Skin: Denies: Dryness, Lesions Neurological: Denies: Numbness, Tingling, Focal weakness Psychiatric: Denies: Anxiety, Depression Hematologic/ Lymphatic: Denies: Easy Bruising, Easy Bleeding, Hx of blood clot Comment: Our views are otherwise negative except for as mentioned above in the HPI and review of systems. VTE Information - Inpt Only VTE Present on Admission: No VTE Pharm Prophylaxis ordered?: Yes Patient Problems: Active and Suspected Problems Cellulitis (Acute) - Physical Exam General: Alert, Cooperative, No apparent distress, - - Morbidly obese HEENT: Atraumatic, Normocephalic Oral: Moist Mucosa Neck: No Nodes, Thyroid Normal Size and Texture Lungs: Clear to auscultation, No rhonchi, No wheeze, Diminished Cardiovascular: Regular rate, Regular Rhythm, Normal S1, Normal S2 Abdomen: Bowel Sounds Present, Soft, Non Tender, Non-Distended, Obese Extremities: No Calf Tenderness, Edema - Trace Skin: - - Some mild erythema noted throughout but actual warmth noted on over the right buttocks and flank. No definitive well-demarcated lesion is identified. Musculoskeletal: No Tenderness to Palpation of Joints or Extremities, No Muscle Wasting Neurological: Neuro grossly intact, Muscle tone normal, Sensory exam intact to light touch and pain Psych/Mental Status: Normal Affect, Appropriate Vital Signs Temp Pulse Resp BP Pulse Ox 37.5 C H 85 14 123/70 H 99 08/01/17 21:11 08/01/17 22:48 08/01/17 22:48 08/01/17 22:48 08/01/17 22:48 Oxygen Flow Rate (L/min) 2 Oxygen Delivery Method Room Air Weight: 183.7 kg Body Mass Index (BMI) 76.5 Laboratory Tests Past 24 Hrs Clinical Impression(s) from Imaging Studies Chest X-Ray 08/01/17 18:50 IMPRESSION: No acute thoracic pathology. Electronically Signed: Danial Whatley, at 19:44 EDT Tel , Service support , Assessment/Plan All Active Problems Cellulitis (Acute) 1. Right buttock and flank cellulitis * Given the rapid onset with suspect streptococcal versus staph * Patient received Zosyn and vancomycin and continue with vancomycin * Would continue with IV antibiotics and till patient's symptoms do improve. 2. Sepsis * Present on arrival * Secondary to cellulitis 3. Debility * Patient does live alone but is able to care for herself but when she got sick patient just felt very weak and did have called EMS. * Will have physical and occupational therapy assess patient for any potential home-going needs upon discharge. 4. Diabetes mellitus type 2 * Continue with Metformin and Tradjenta * Add sliding scale insulin 5. Venous thromboembolic prophylaxis * Patient moderate risk given her obesity and other medical comorbidities * Subcu Lovenox Code Visit Inpatient E AND M: 48176 Init Hosp L3 08/01/17 2319 <Electronically signed by Zane Boyer DO> Date Zane Boyer DO Cosigner Signature: Date (if applicable) CC: Zane Boyer DO; Vincent Herbert MD Signed URINALYSIS, COMPLETE Collected: 08/01/2017 Status: F Source: [place] 7:35 PM [facility] REPOSITORY Order Comment: Order Date: 08/01/17 How was Urine Obtained? CATHETER SPECIMEN TYPE CODE TESTS RESULT OUT OF RANGE REFERENCE UNITS LAB L400.3000 Yellow COLOR Normal Yellow LAB L400.3050 Clear Normal CLARITY Clear LAB L400.3200 Normal mg/dl High GLUCOSE, UR 250 LAB L400.3300 Negative mg/dL Normal BILIRUBIN URINE Negative LAB L400.3400 Negative mg/dl High 5 KETONE UR LAB L400.3465 1.002-1.030 Normal SP.GR. DIPSTX 1.015 LAB L400.3550 5.0 - 8.0 pH UR Normal 6.0 LAB L400.3600 Negative mg/dl High PROT 15 DIPSTX LAB L400.3700 Normal mg/dl Normal UROBILI Normal LAB L400.3750 Negative Normal NITRITE UR Negative LAB L400.3780 Negative /ul High 10 OCCULT BLOOD-UR LAB L400.3800 Negative /ul LEUK Normal ESTERASE Negative LAB L400.4050 0-5 /hpf WBC 0 Normal SEEN LAB L400.4100 0-5 /hpf 0 Normal RBC-UA SEEN LAB L400.4150 5-10 /hpf SQUAM 0 Normal EPI SEEN LAB L400.4300 None Seen /hpf 0 Normal BACTERIA SEEN LAB L400.4350 <or=2+ /hpf 1+ Normal MUCUS, URINE Performed By: #### L400.0001 #### [facility] [address] [place], [address] Observed: 08/01/2017 Status: F Source: [place] CULTURE, URINE 7:35 PM [facility] REPOSITORY Order Date: 08/01/17 Has pt arrived? Y Urine Culture Culture exhibits no growth. Performed By: #### M100.0650 #### [facility] [place], [address] Observed: 08/01/2017 Status: F Source: [place] CULTURE, BLOOD (WB) 6:10 PM [facility] REPOSITORY BC No growth in 5 days. Performed By: #### M200.1000 #### [facility] [place], [address] CHEST PA AND LATERAL Observed: 08/01/2017 Status: F Source: [place] 5:56 PM [facility] REPOSITORY [facility] Imaging Services [address] [place] [address] Chest PA and Lateral MR#: [id number] Acct: [id number] Name: KATHLEEN KHAN V Rep #: [id number] : 1960 F 57 From: Danial Whatley MD PCP: Vincent Herbert MD Status: REG ER Study: Chest PA and Lateral Date of Exam: 08/01/17 Exam# [id number] Ordering Dr: Claudia Gerardo STUDY: X-RAY CHEST REASON FOR EXAM: Female, 57 years old. Weakness TECHNIQUE: Frontal and lateral views of the chest COMPARISON: 05/28/2012 FINDINGS: The lungs are clear. There are no pleural effusions. There is no pneumothorax. The heart is normal in size. The visualized osseous structures are within normal limits. RAD/Chest PA and Lateral IMPRESSION: No acute thoracic pathology. Electronically Signed: Danial Whatley, at 19:44 EDT Tel , Service support , CC: Claudia Gerardo; Vincent Herbert MD Plate Grainer: Signed CBC W/DIFF, AUTOMATED Collected: 08/01/2017 Status: F Source: [place] 5:40 PM [facility] REPOSITORY TYPE CODE TESTS RESULT OUT OF RANGE REFERENCE UNITS LAB L100.1000 4.4-11.0 K/mm3 High WBC 16.0 LAB L100.1200 4.2-5.4 M/mm3 Normal RBC 4.75 LAB L100.1300 12.0-15.0 g/dl Normal HGB 13.3 LAB L100.1400 37-47 % Normal HCT 40.0 LAB L100.1500 81-99 fL Normal MCV 84.2 LAB L100.1600 27.0-32.0 pg Normal MCH 28.0 LAB L100.1700 32-36 g/gl Normal MCHC 33.3 LAB L100.1810 11.6-14.6 % Normal RDW CV 13.2 LAB L100.1820 35.1-43.9 fl Normal RDW SD 40.3 LAB L100.1900 150-450 K/mm3 Normal PLT 196 LAB L100.2000 6.2-12.0 fl Normal MPV 11.1 LAB L100.2100 47-70 % High NEUT% 93.2 LAB L100.2200 19-41 % Low LY% 2.8 LAB L100.2300 0-10 % Normal MONO% 3.7 LAB L100.2400 0-5 % Normal EO% 0.2 LAB L100.2500 0-1 % Normal BASO% 0.0 LAB L100.2550 0.0-0.9 % Normal IM GRAN % 0.100 Result Comment: IG% - Immature Granulocytes (promyelocytes, myelocytes and metamyelocytes) > 1% indicates that a LEFT SHIFT is Present. LAB L100.2620 2.0-7.7 X10 3/uL High Absolute Neut 14.9 LAB L100.2720 0.83-4.51 X10 3/ul Low Absolute Lymph 0.44 LAB L100.4500 Normal SMEAR COMMENT SCANNED Result Comment: LYMPHOPENIA NOTED Performed By: #### L100.0100 #### [facility] [address] [place], [place], [address] PROTHROMBIN TIME W/INR Collected: 08/01/2017 Status: F Source: [place] 5:40 PM [facility] REPOSITORY TYPE CODE TESTS RESULT OUT OF RANGE REFERENCE UNITS LAB L300.4150 11.7-14.9 SECONDS Normal PROTIME 13.9 LAB L300.4200 Normal INR 1.1 Performed By: #### L300.3900, L300.4310 #### [facility] [address] [place], [address] PARTIAL THROMBOPLAST Collected: 08/01/2017 Status: F Source: [place] TIME 5:40 PM [facility] REPOSITORY TYPE CODE TESTS RESULT OUT OF RANGE REFERENCE UNITS LAB L300.4310 24.1-36.2 Seconds Normal PTT 30.4 Performed By: #### L300.3900, L300.4310 #### [facility] [address] [place], [place], [id number] COMPREHENSIVE METABOLIC Collected: 08/01/2017 Status: F Source: [place] ELI 5:40 PM [facility] REPOSITORY TYPE CODE TESTS RESULT OUT OF RANGE REFERENCE UNITS LAB L501.0100 74-106 mg/dL High GLU 306 Result Comment: Glucose result greater than or equal to 200 mg/dL suggests DIABETES MELLITUS per A.D.A. criteria. Please note revised GLUCOSE reference range effective 2017. LAB L501.1000 7-18 mg/dL Normal BUN 13 LAB L501.1100 0.55-1.02 mg/dL Normal CREAT,SERUM 0.83 Result Comment: The validity of the calculated GFR AND GFRAA in patients over 70 years has not been determined. Clinical correlation is essential. LAB L501.1110 >60 mL/min Normal EST GFR 75 Result Comment: Non- GFR Calc LAB L501.1115 >60 mL/min Normal EST GFR - AA 90 Result Comment: GFR Calc LAB L501.1255 ml/min Normal Estimated CRCL 56.43 LAB L501.1300 10-20 RATIO Normal BUN/CRE 15.6 LAB L501.1500 6.4-8. g/dL Normal 2 T PROT 7.2 LAB L501.1800 3.2-5. g/dL Normal 0 ALB 3.5 LAB L501.1950 2.2-4. g/dL Normal 2 GLOB 3.7 LAB L501.2000 0.9-2. RATIO Normal 4 A/G 0.9 LAB L501.2200 8.5-10 mg/dL Normal .1 CA 8.6 LAB L501.4100 15-37 U/L Low AST 12 LAB L501.4305 45-117 U/L High ALK P 163 LAB L501.4405 13-56 U/L Normal ALT 19 LAB L501.4600 0.20-1 mg/dL Normal .00 T BILI 0.80 LAB L501.5300 136-14 mmol/L Low 5 NA 134 LAB L501.5600 3.5-5. mmol/L Normal 1 K 4.1 LAB L501.5900 98-107 mmol/L Normal CL 99 LAB L501.6100 21.0-3 mmol/L Normal 2.0 CO2 28.0 LAB L501.6200 5-15 Normal GAP 7 Performed By: #### L500.4050, L501.4010 #### [facility] [address] [place], [address] TROPONIN-I Collected: 08/01/2017 Status: F Source: [place] 5:40 PM [facility] REPOSITORY TYPE CODE TESTS RESULT OUT OF RANGE REFERENCE UNITS LAB L501.4010 <0.045 ng/mL Normal < 0.015 TROPONIN-I Result Comment: TROPONIN-I EXPECTED VALUES <0.045 Negative 0.045 - 0.590 Consistent with Cardiac Damage > OR = 0.600 Critical Value Not every elevated troponin is indicative of [place]. These values should be used with clinical judgement in examining the patient's clinical picture for diagnosis. To establish a diagnosis of WI versus myocardial injury, there must be a demonstrated rise and/or fall in the troponin values, in addition to ischemic symptoms, EKG changes, new regional wall motion abnormality, and/or angiographical evidence. PLEASE NOTE: REFERENCE RANGES EDITED 17 Performed By: #### L500.4050, L501.4010 #### [facility] [address] [place], [address] LACTIC ACID Collected: 08/01/2017 Status: F Source: [place] AL[place] 5:40 PM [facility] REPOSITORY Order Comment: Yes/No query for Sepsis Lactate Rule Y TYPE CODE TESTS RESULT OUT OF RANGE REFERENCE UNITS LAB L503.6005 0.4-2.0 mmol/L Normal LACTIC ACID 1.7 Performed By: #### L503.6005 #### [facility] [address] [place], [address] Observed: 08/01/2017 Status: F Source: JOSE ALFREDO CULTURE, BLOOD (WB) 5:40 PM [facility] REPOSITORY BC No growth in 5 days. Performed By: #### M200.1000 #### [facility] [address] [place], [address] PROGRESS Observed: 07/30/2017 Status: COMPLETED Source: [place] 7:41 AM [facility] REPOSITORY HNO ID: [id number] Author: Barbara Mendiola Service: (none) Author Type: Graphic Specialist Type: Progress Notes Filed: 07/30/2017 7:41 AM Note Text: Radiology Service Progress Note PATIENT NAME: Kathleen Khan DATE OF SERVICE: July 30, 2017 TIME: 7:41 AM PATIENT IDENTITY VERIFICATION COMPLETED USING TWO (2) METHODS: Patient confirmed name verbally and Date of . PATIENT GENDER DATA: Female. status: : No status: N/A PATIENT RELEVANT IMPLANT DATA REVIEWED: Not Applicable RADIOLOGY DEPARTMENT: Ultrasound PERIPHERAL IV DATA: Not applicable SIGNED BY: BARBARA MENDIOLA RDMS RVAlexsander July 30, 2017 7:41 AM US ABD SPLEEN -NB Observed: 07/30/2017 Status: C Source: [place] 7:37 AM [facility] REPOSITORY * * *Final Report* * * * * * SEE BOTTOM OF REPORT FOR ADDENDED TEXT * * * DATE OF EXAM: Jul 30 2017 7:37AM [facility]U 1232 - US ABD SPLEEN -NB / PROCEDURE REASON: Abnormal levels of other serum enzymes * * * * Physician Interpretation * * * * * * * * * * * * ORIGINAL REPORT * * * * * * * * EXAMINATION: RIGHT UPPER QUADRANT AND SPLEEN ULTRASOUND CLINICAL HISTORY: Abnormal levels of other serum enzymes TECHNIQUE: Sonography of the right upper quadrant and spleen was performed. Images were obtained and stored in a permanent archive. MQ: URUQ_1 COMPARISON: Prior ultrasound dated 12/21/2015. RESULT: Please of this examination is limited secondary to body habitus and overlying bowel gas. Pancreas: Suboptimally visualized secondary to body habitus and overlying bowel gas. Liver: Echotexture: Coarse Echogenicity: Increased Surface contour: Smooth Lesions: None. Biliary: No intrahepatic biliary duct dilation. CBD: 0.6 cm at the hilum. Gallbladder: The patient is status post cholecystectomy. Right Kidney: No hydronephrosis. The right kidney measures approximately 9.5 cm. Ascites: None. Spleen: The spleen measures approximately 15.7 cm in length. There is no obvious focal splenic lesion. IMPRESSION: Coarse, heterogeneous liver echotexture, suggesting hepatocellular disease, without focal hepatic lesion. Status post cholecystectomy. Splenomegaly, without focal splenic lesion. * * * * * * * * ADDENDUM #1 * * * * * * * * Please note that there is an error in this report. The liver measures 15.7 cm, not the spleen. There are findings of hepatocellular disease. No focal hepatic lesion is identified. The patient does not have splenomegaly. The spleen measures approximately 11.5 cm. Plate Grainer: PSCB Transcribe Date/Time: Jul 30 2017 11:02A Dictated by : NIK CROCKER MD This examination was interpreted and the report reviewed and electronically signed by: NIK CROCKER MD on Jul 30 2017 7:47AM EST This document has been addended by: NIK CROCKER MD on Jul 30 2017 11:04AM EST [id number] US ABD RIGHT UPPER Observed: 07/30/2017 Status: C Source: [facility] 7:37 AM [facility] REPOSITORY * * *Final Report* * * * * * SEE BOTTOM OF REPORT FOR ADDENDED TEXT * * * DATE OF EXAM: Jul 30 2017 7:37AM WRU 1032 - US ABD RIGHT UPPER QUADRANT / PROCEDURE REASON: Abnormal levels of other serum enzymes * * * * Physician Interpretation * * * * * * * * * * * * ORIGINAL REPORT * * * * * * * * EXAMINATION: RIGHT UPPER QUADRANT AND SPLEEN ULTRASOUND CLINICAL HISTORY: Abnormal levels of other serum enzymes TECHNIQUE: Sonography of the right upper quadrant and spleen was performed. Images were obtained and stored in a permanent archive. MQ: URUQ_1 COMPARISON: Prior ultrasound dated 12/21/2015. RESULT: Please of this examination is limited secondary to body habitus and overlying bowel gas. Pancreas: Suboptimally visualized secondary to body habitus and overlying bowel gas. Liver: Echotexture: Coarse Echogenicity: Increased Surface contour: Smooth Lesions: None. Biliary: No intrahepatic biliary duct dilation. CBD: 0.6 cm at the hilum. Gallbladder: The patient is status post cholecystectomy. Right Kidney: No hydronephrosis. The right kidney measures approximately 9.5 cm. Ascites: None. Spleen: The spleen measures approximately 15.7 cm in length. There is no obvious focal splenic lesion. IMPRESSION: Coarse, heterogeneous liver echotexture, suggesting hepatocellular disease, without focal hepatic lesion. Status post cholecystectomy. Splenomegaly, without focal splenic lesion. * * * * * * * * ADDENDUM #1 * * * * * * * * Please note that there is an error in this report. The liver measures 15.7 cm, not the spleen. There are findings of hepatocellular disease. No focal hepatic lesion is identified. The patient does not have splenomegaly. The spleen measures approximately 11.5 cm. Plate Grainer: PSCB Transcribe Date/Time: Jul 30 2017 11:02A Dictated by : NIK CROCKER MD This examination was interpreted and the report reviewed and electronically signed by: NIK CROCKER MD on Jul 30 2017 7:47AM EST This document has been addended by: NIK CROCKER MD on Jul 30 2017 11:04AM EST [id number] ALK PHOS ISOENZYMES Collected: 07/25/2017 Status: F Source: [place] 4:26 PM [facility] REPOSITORY TYPE CODE TESTS RESULT OUT OF REFERENCE UNITS RANGE LAB ALKPS 32-117 U/L Alkaline High Phosphatase 158 LAB ALKBO 10.7-68.3 % Alk Phos Bone % 23.8 LAB ALKBF 12.0-50.0 U/L Bone Fraction 37.6 LAB ALKLIV 26.0-86.2 % Alk Phos Liver % 76.2 LAB ALKLF 15.0-66.0 U/L Liver High Fraction 120.4 LAB ALKINT 0.0-24.2 % Alk Phos Intestine % 0.0 LAB ALKINF 0.0-15.3 U/L Intestine Fraction 0.0 Performed By: #### ALKISO #### [facility] [address] [place], [place] [address] ALBUMIN URINE RANDOM Collected: 07/20/2017 Status: F Source: [place] 4:15 PM [facility] REPOSITORY TYPE CODE TESTS RESULT OUT OF REFERENCE UNITS RANGE LAB UALBR 0.0-23.0 mg/L Albumin Urine <12.0 Random Performed By: #### UALBR #### [facility] [address] [place], [place] [address] COMP METABOLIC PANEL Collected: 07/20/2017 Status: F Source: [place] 4:00 PM [facility] REPOSITORY TYPE CODE TESTS RESULT OUT OF REFERENCE UNITS RANGE LAB TP 6.3-8.0 g/dL Protein, Total 7.3 LAB ALB 3.9-4.9 g/dL Albumin 4.3 LAB CA 8.5-10.2 mg/dL Calcium, Total 9.6 LAB TBIL 0.2-1.3 mg/dL Bilirubin, Total 0.4 LAB ALKP 32-117 U/L Alkaline High Phosphatase 173 LAB AST 13-35 U/L AST 17 LAB GLU 74-99 mg/dL Glucose High 177 Result Comment: The Canadian Diabetes Association (ADA) provides guidance for cutoff values for fasting glucose and random glucose. The ADA defines fasting as no caloric intake for at least 8 hours. Fas ting plasma glucose results between 100 to 125 mg/dL indicate increased risk for diabetes (prediabetes). Fasting plasma glucose results greater than or equal to 126 mg/dL meet the criteria for diagnosis of diabetes. In the absence of unequivocal hyperglycemia, results should be confirmed by repeat testing. In a patient with classic symptoms of hyperglycemia or hyperglycemic crisis, random plasma glucose results greater than or equal to 200 mg/dL meet the criteria for diagnosis of diabetes. Reference: Standards of Medical Care in Diabetes 2016, Canadian Diabetes Association. Diabetes Care. 2016.39(Suppl 1). LAB BUN 7-21 mg/dL BUN 17 LAB CRET 0.58-0.96 mg/dL Creatinine 0.61 LAB NA 136-144 mmol/L Sodium 139 LAB K 3.7-5.1 mmol/L Potassium 4.5 LAB CL 97-105 mmol/L Chloride 97 LAB CO2 22-30 mmol/L CO2 28 LAB AGAP 9-18 mmol/L Anion Gap 14 LAB ALT 7-38 U/L ALT 15 LAB GFRAA eGFR- Amer. >60 LAB GFRNAA . eGFR-All Other Races >60 Result Comment: eGFR (Estimated GFR) Units of measure: mL/min/1.73 meters squared eGFR is derived from the reexpressed MDRD Study equation using the following parameters: serum creatinine, age, gender and race. The creatinine assay has been calibrated to be traceable to IDMS. An eGFR <60 mL/min/1.73m2 for >3 months is consistent with chronic kidney disease. Refer to KDOQI guidelines for clinical interpretation. In patients with unstable renal function, e.g. those with acute kidney injury, the eGFR may not accurately reflect actual GFR. Performed By: #### CMP, LIPB, PROL, HBA1C #### [facility] [address] [place] [address] LIPID PANEL, BASIC Collected: 07/20/2017 Status: F Source: [place] 4:00 PM [facility] REPOSITORY TYPE CODE TESTS RESULT OUT OF REFERENCE UNITS RANGE LAB CHOL <200 mg/dL Cholesterol 174 Result Comment: <200 mg/dL, Desirable 200-239 mg/dL, Borderline high >239 mg/dL, High LAB TRIGLY <150 mg/dL Triglyceride High 199 Result Comment: <150 mg/dL, Normal 150-199 mg/dL, Borderline high 200-499 mg/dL, High >499 mg/dL, Very high LAB HDL >39 mg/dL HDL-Cholesterol 42 Result Comment: 40-59 mg/dL, Acceptable >59 mg/dL, High: Negative risk factor for coronary heart disease <40 mg/dL, Low: Positive risk factor for coronary heart disease LAB LDL <100 mg/dL LDL-Cholesterol 92 Result Comment: <100 mg/dL, Optimal 100-129 mg/dL, Near optimal/above optimal 130-159 mg/dL, Borderline high 160-189 mg/dL, High >189 mg/dL, Very high Secondary prevention optimal LDL Cholesterol levels are recommended to be < 70 mg/dL LAB NONHDL <130 mg/dL Non HDL High Cholesterol 132 Result Comment: <130 mg/dL, Optimal 130-159 mg/dL, Near optimal/above optimal 160-189 mg/dL, Borderline high 190-219 mg/dL, High >219 mg/dL, Very high Secondary prevention optimal non HDL Cholesterol levels are recommended to be < 100 mg/dL LAB FT hrs Fasting Time 5 LAB VLDL <30 mg/dL High VLDL Cholesterol 40 LAB TCHDL <5.10 TC:HDL Ratio 4.14 LAB LDLHDL <2.54 LDL:HDL Ratio 2.19 Result Comment: Reference: 1. National Cholesterol Education Program ATP III Guideline At-A-Glance Quick Desk Reference: National Heart, Lung, and Blood [place]. National Institutes of Health. 2001: NIH Publication No. 01-3305. 2. An International Atherosclerosis Society position paper: global recommendations for the management of dyslipidemia: executive summary, Atherosclerosis. 2014: 232(2):410-413. Performed By: #### CMP, LIPB, PROL, HBA1C #### [facility] [address] [address] [facility] Collected: 07/20/2017 Status: F Source: [place] 4:00 PM [facility] REPOSITORY TYPE CODE TESTS RESULT OUT OF REFERENCE UNITS RANGE LAB PROL 4.5-26.8 ng/mL Prolactin 8.2 Performed By: #### CMP, LIPB, PROL, HBA1C #### [facility] [address] [place] [address] HEMOGLOBIN A1C Collected: 07/20/2017 Status: F Source: [place] 4:00 PM [facility] REPOSITORY TYPE CODE TESTS RESULT OUT OF REFERENCE UNITS RANGE LAB HGBA1C 4.3-5.6 % High Hemoglobin A1c 7.8 LAB HBA0 mg/dL Est. Average Glucose 177 Result Comment: eAG: (Estimated average glucose) is a calculated value from HgbA1c and is hospital sales representative of the average blood glucose level in the last 2-3 month period. Performed By: #### CMP, LIPB, PROL, HBA1C #### [place] [address] MAGNESIUM Collected: 07/20/2017 Status: F Source: [place] 4:00 [facility] REPOSITORY TYPE CODE TESTS RESULT OUT OF REFERENCE UNITS RANGE LAB MG 1.7-2.3 mg/dL Magnesium 2.3 Performed By: #### MG1 #### [place] [address] PROGRESS Observed: 07/20/2017 Status: COMPLETED Source: [place] 3:32 PM [facility] REPOSITORY HNO ID: [id number] Author: Shorty Elizondo Service: (none) Author Type: Physician Type: Progress Notes Filed: 07/20/2017 5:26 PM Note Text: PERTINENT CARDIAC HISTORY HTN SVT Chest pain - normal coronaries Aortic sclerosis HL DM Obesity JEREMÍAS - Bipap ADHERENCE TO GUIDELINES FAMILIA-I or ARB for HF with prior LVEF<40 (NQF 0081) - N/A ASA or Plavix for ASHD (NQF 0067) - met Beta andrea for ASHD with prior WI or prior LVEF<40 (NQF 0070) - N/A Beta andrae for HF with prior LVEF<40 (NQF 0083) - N/A FAMILIA-I or ARB for ASHD with DM or prior LVEF<40 (NQF 0066) - N/A Statin therapy for ASHD or FHL or DM - N/A BMI documented and plan if >25 (NQF 0421) - lifestyle recommendation form Tobacco use screening and referral (NQ 0028) - lifestyle recommendation form Recommendation for whole food, plant based diet - lifestyle recommendation form CLINICAL IMPRESSION/PLAN: Kathleen Khan has stable, atypical chest pain and no recent episodes of SVT. I've encouraged her to continue her current medication. She has gained over 40 pounds since my last visit. There is minimal edema. Most of this is adipose. Laboratory studies are due. Magnesium level was added. I've advised her to discontinue all processed and fast food and also carbohydrate based snacks. I will see her in 12 months or as needed Written and verbal health teaching given to patient, patient verbalizes understanding and agrees with treatment plan. DIAGNOSIS FOR VISIT: SVT Hypertension HISTORY OF PRESENT ILLNESS Kathleen Khan returns for follow-up of her hypertension, atypical chest pain and SVT. She was lost to follow-up for a while because of a change in insurance. She has had limited exercise tolerance due to worsening obesity. She has had no recent chest discomfort and has used no nitroglycerin. She's had minimal edema. She denies syncope, TIAs, amaurosis and claudication. She's had minimal palpitations. ALLERGIES: ALLERGIES Allergen Reactions - Lyrica [Pregabalin] Anaphylaxis Not sure if accurate. Can take gabapentin. Patient is unsure of reaction. - Accupril [Quinapril* Intolerance dizziness - Amlodipine Swelling Leg edema - Atenolol Swelling - Effexor [Venlafaxin* swelling high blood pressure - Januvia [Sitaglipti* GI Upset, Other: See Comments Patient states she couldn't eat - Metoprolol Swelling - Mobic [Meloxicam] GI Upset - Prozac [Fluoxetine * Intolerance tremor - Risperidone Mental Status Change - Seroquel [Quetiapin* hypertension,swelling - Vioxx [Rofecoxib] GI Upset - Wellbutrin [Bupropi* Intolerance nightmares CURRENT OUTPATIENT MEDICATIONS: metFORMIN ER (GLUCOPHAGE XR) 500 mg 24 hr tablet Take 1 tablet by mouth once daily. After one week increase the dose to 2 tablets once daily gabapentin (NEURONTIN) 300 mg capsule Take 1 capsule by mouth twice daily for 30 days. HYDROcodone-acetaminophen (NORCO) 5-325 mg per tablet TAKE ONE TABLET TWICE DAILY indomethacin (INDOCIN) 25 mg capsule Take 1 capsule by mouth twice daily with meals. Hold while on Ibuprofen glimepiride (AMARYL) 4 mg tablet Take 1 tablet by mouth daily with breakfast. baclofen (LIORESAL) 10 mg tablet Take 1 tablet by mouth twice daily. linagliptin (TRADJENTA) 5 mg tab Take 1 tablet by mouth once daily. spironolactone (ALDACTONE) 25 mg tablet Take 1 tablet by mouth once daily. ranitidine (ZANTAC) 150 mg tablet Take 1 tablet by mouth twice daily. furosemide (LASIX) 20 mg tablet Take 1 tablet by mouth once daily. DULoxetine (CYMBALTA) 60 mg capsule Take 1 capsule by mouth once daily. Blood-Glucose Meter monitoring kit Glucose Meter of Choice - Kit - Dx: Type 2 DM - Controlled E11.9 Use twice daily as directed blood sugar diagnostic (BLOOD GLUCOSE TEST) test strip Test blood sugar(s) 2 times daily. Dx: Type 2 DM - Controlled E11.9 Insulin: No TRUETEST TEST STRIPS test strip TEST twice a day lancets (TRUEPLUS LANCETS) 30 gauge misc Test twice daily Dx: 250.02 primidone (MYSOLINE) 50 mg tablet TAKE ONE TABLET ONCE DAILY AT BEDTIME traZODone (DESYREL) 50 mg tablet Take 0.5 tablets by mouth daily at bedtime. ARIPiprazole (ABILIFY) 10 mg tablet Take 1 tablet by mouth once daily. nystatin (MYCOSTATIN) cream Apply 1 application to affected area twice daily. potassium chloride ER (K-DUR, KLOR-CON) 10 mEq tablet Take 1 tablet by mouth once daily. nitroglycerin sublingual (NITROQUICK) 0.4 mg SL tablet Dissolve 1 tablet under the tongue as needed. FOR CHEST PAIN. IF NO RELIEF CALL 911 polyethylene glycol 3350 (MIRALAX, GLYCOLAX) 17 gram/dose powder Take 17 g by mouth once daily. cetirizine 5 mg tablet Take 10 mg by mouth once daily. aspirin, enteric coated (ECOTRIN LOW STRENGTH) 81 mg EC tablet Take 1 tablet by mouth once daily. PHYSICAL EXAMINATION: VITAL SIGNS: BP 116/77 Pulse 92 Ht 5' 1 (1.55m) Wt 401 lb 3.2 oz (182.0kg) LMP 12/11/2008 BMI 75.85 kg/(m2). Chest: Clear to percussion and auscultation. Trachea is midline. Air entry is equal. Cardiac: Regular rhythm. S1 and S2 are normal. PMI is nondisplaced. There is a 2/6 systolic ejection murmur. Carotids are brisk with soft bilateral bruits. JVP is less than 10 cm. Abdomen: Soft and nontender. There is morbid obesity. There are no pulsatile masses or bruits. No liver enlargement. Bowel sounds are active. Extremities: Trace edema. Pulses are intact and symmetrical. EKG shows sinus rhythm with short ND interval. There is no significant change from 06/21/13. Electronically Signed: Shorty Elizondo MD July 20, 2017 3:32 PM CC: Vincent Herbert MD CNOV Observed: 07/20/2017 Status: COMPLETED Source: [place] 3:00 PM [facility] REPOSITORY Office Visit (CA[facility]) KATHLEEN KHAN Alan ([id number]) 1960 F Date Time Provider Department 07/20/17 3:00 PM SHORTY ELIZONDO [facility] During your visit today, we recorded the following information about you: Pulse Blood pressure Weight Height 92/minute 116/77 182 kg 1.549 m Shorty Elizondo MD 07/20/2017 5:26 PM Signed PERTINENT CARDIAC HISTORY HTN SVT Chest pain - normal coronaries Aortic sclerosis HL DM Obesity JEREMÍAS - Bipap ADHERENCE TO GUIDELINES FAMILIA-I or ARB for HF with prior LVEF<40 (NQF 0081) - N/A ASA or Plavix for ASHD (NQF 0067) - met Beta andrea for ASHD with prior WI or prior LVEF<40 (NQF 0070) - N/A Beta andrea for HF with prior LVEF<40 (NQF 0083) - N/A FAMILIA-I or ARB for ASHD with DM or prior LVEF<40 (NQF 0066) - N/A Statin therapy for ASHD or FHL or DM - N/A BMI documented and plan if >25 (NQF 0421) - lifestyle recommendation form Tobacco use screening and referral (NQ 0028) - lifestyle recommendation form Recommendation for whole food, plant based diet - lifestyle recommendation form CLINICAL IMPRESSION/PLAN: Ktahleen Khan has stable, atypical chest pain and no recent episodes of SVT. I've encouraged her to continue her current medication. She has gained over 40 pounds since my last visit. There is minimal edema. Most of this is adipose. Laboratory studies are due. Magnesium level was added. I've advised her to discontinue all processed and fast food and also carbohydrate based snacks. I will see her in 12 months or as needed Written and verbal health teaching given to patient, patient verbalizes understanding and agrees with treatment plan. DIAGNOSIS FOR VISIT: SVT Hypertension HISTORY OF PRESENT ILLNESS Kathleen Khan returns for follow-up of her hypertension, atypical chest pain and SVT. She was lost to follow-up for a while because of a change in insurance. She has had limited exercise tolerance due to worsening obesity. She has had no recent chest discomfort and has used no nitroglycerin. She's had minimal edema. She denies syncope, TIAs, amaurosis and claudication. She's had minimal palpitations. ALLERGIES: ALLERGIES Allergen Reactions - Lyrica [Pregabalin] Anaphylaxis Not sure if accurate. Can take gabapentin. Patient is unsure of reaction. - Accupril [Quinapril* Intolerance dizziness - Amlodipine Swelling Leg edema - Atenolol Swelling - Effexor [Venlafaxin* swelling high blood pressure - Januvia [Sitaglipti* GI Upset, Other: See Comments Patient states she couldn't eat - Metoprolol Swelling - Mobic [Meloxicam] GI Upset - Prozac [Fluoxetine * Intolerance tremor - Risperidone Mental Status Change - Seroquel [Quetiapin* hypertension,swelling - Vioxx [Rofecoxib] GI Upset - Wellbutrin [Bupropi* Intolerance nightmares CURRENT OUTPATIENT MEDICATIONS: metFORMIN ER (GLUCOPHAGE XR) 500 mg 24 hr tablet Take 1 tablet by mouth once daily. After one week increase the dose to 2 tablets once daily gabapentin (NEURONTIN) 300 mg capsule Take 1 capsule by mouth twice daily for 30 days. HYDROcodone-acetaminophen (NORCO) 5-325 mg per tablet TAKE ONE TABLET TWICE DAILY indomethacin (INDOCIN) 25 mg capsule Take 1 capsule by mouth twice daily with meals. Hold while on Ibuprofen glimepiride (AMARYL) 4 mg tablet Take 1 tablet by mouth daily with breakfast. baclofen (LIORESAL) 10 mg tablet Take 1 tablet by mouth twice daily. linagliptin (TRADJENTA) 5 mg tab Take 1 tablet by mouth once daily. spironolactone (ALDACTONE) 25 mg tablet Take 1 tablet by mouth once daily. ranitidine (ZANTAC) 150 mg tablet Take 1 tablet by mouth twice daily. furosemide (LASIX) 20 mg tablet Take 1 tablet by mouth once daily. DULoxetine (CYMBALTA) 60 mg capsule Take 1 capsule by mouth once daily. Blood-Glucose Meter monitoring kit Glucose Meter of Choice - Kit - Dx: Type 2 DM - Controlled E11.9 Use twice daily as directed blood sugar diagnostic (BLOOD GLUCOSE TEST) test strip Test blood sugar(s) 2 times daily. Dx: Type 2 DM - Controlled E11.9 Insulin: No TRUETEST TEST STRIPS test strip TEST twice a day lancets (TRUEPLUS LANCETS) 30 gauge misc Test twice daily Dx: 250.02 primidone (MYSOLINE) 50 mg tablet TAKE ONE TABLET ONCE DAILY AT BEDTIME traZODone (DESYREL) 50 mg tablet Take 0.5 tablets by mouth daily at bedtime. ARIPiprazole (ABILIFY) 10 mg tablet Take 1 tablet by mouth once daily. nystatin (MYCOSTATIN) cream Apply 1 application to affected area twice daily. potassium chloride ER (K-DUR, KLOR-CON) 10 mEq tablet Take 1 tablet by mouth once daily. nitroglycerin sublingual (NITROQUICK) 0.4 mg SL tablet Dissolve 1 tablet under the tongue as needed. FOR CHEST PAIN. IF NO RELIEF CALL 911 polyethylene glycol 3350 (MIRALAX, GLYCOLAX) 17 gram/dose powder Take 17 g by mouth once daily. cetirizine 5 mg tablet Take 10 mg by mouth once daily. aspirin, enteric coated (ECOTRIN LOW STRENGTH) 81 mg EC tablet Take 1 tablet by mouth once daily. PHYSICAL EXAMINATION: VITAL SIGNS: BP 116/77 Pulse 92 Ht 5' 1 (1.55m) Wt 401 lb 3.2 oz (182.0kg) LMP 12/11/2008 BMI 75.85 kg/(m2). Chest: Clear to percussion and auscultation. Trachea is midline. Air entry is equal. Cardiac: Regular rhythm. S1 and S2 are normal. PMI is nondisplaced. There is a 2/6 systolic ejection murmur. Carotids are brisk with soft bilateral bruits. JVP is less than 10 cm. Abdomen: Soft and nontender. There is morbid obesity. There are no pulsatile masses or bruits. No liver enlargement. Bowel sounds are active. Extremities: Trace edema. Pulses are intact and symmetrical. EKG shows sinus rhythm with short ND interval. There is no significant change from 06/21/13. Electronically Signed: Shorty Elizondo MD July 20, 2017 3:32 PM CC: MD Shorty Uribe MD 07/20/2017 3:32 PM Signed LIFESTYLE CHANGE A healthy lifestyle is the most important component of your overall treatment plan. 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 EAT A WHOLE FOOD, PLANT BASED DIET The nutrition your body gets is more important than the medicine you take. What matters most is the overall way you eat. We encourage you to minimize the use of animal products (which include dairy and all meats except fatty fish) and use whole, unprocessed plant foods to provide your protein, vitamins and other nutrients. We have a lot of information to share with you on this topic. This is not a diet. It is a way of life that you will keep with you. EXERCISE REGULARLY It is not important to spend hours in the gym, lifting weights and perspiring heavily. A total of 2-3 hours per week of aerobic (causing you to be moderately short of breath) exercise is sufficient to improve your health. Talk to us before you begin a new exercise program, if you have heart disease or experience shortness of breath or chest pain. REDUCE STRESS Chronic emotional and physical stress leads to disease. Ways of reducing stress include meditation, visualization, prayer, yoga and other forms of relaxation therapy. Consistency is the doll. Find a technique that works for you and do it every day. CULTIVATE RELATIONSHIPS Loneliness and isolation have a major negative impact on health. Seek out others who can love, care for and nurture you. Avoid hurtful relationships. MAINTAIN IDEAL BODY WEIGHT The best way to do this is to do all the things above. Our bodies naturally find the right weight if we keep moving and feed ourselves the right food. If your BMI is greater than 25, we strongly recommend a referral to a weight management program. Please speak to us or your family physician about available programs. AVOID NICOTINE IN ALL FORMS This includes all tobacco products, whether chewed, smoked, vaped, or rubbed on the skin. Smoking cessation programs, which can make use of tobacco substitutes, medications to suppress cravings and behavior management, are available. Please contact your family physician about programs in your area. Referring Provider: SHORTY ELIZONDO [[id number]] Allergies As of Date: 07/20/2017 Noted Allergy Reaction LYRICA (PREGABALIN) 08/05/2012 10 - Anaphylaxis Comments: Not sure if accurate. Can take gabapentin. Patient is unsure of reaction. ACCUPRIL (QUINAPRIL HCL) 08/12/2005 5 - Intolerance Comments: dizziness AMLODIPINE 04/24/2008 7 - Swelling Comments: Leg edema ATENOLOL 09/29/2010 7 - Swelling EFFEXOR (VENLAFAXINE HCL) 09/22/2005 Comments: swelling high blood pressure JANUVIA (SITAGLIPTIN) 09/21/2011 8 - GI Upset 14 - Other: See Comments Comments: Patient states she couldn't eat METOPROLOL 09/21/2009 7 - Swelling MOBIC (MELOXICAM) 08/12/2005 8 - GI Upset PROZAC (FLUOXETINE HCL) 08/12/2005 5 - Intolerance Comments: tremor RISPERIDONE 12/22/2009 1 - Mental Status Change SEROQUEL (QUETIAPINE FUMARATE) 10/05/2006 Comments: hypertension,swelling VIOXX (ROFECOXIB) 08/12/2005 8 - GI Upset WELLBUTRIN (BUPROPION HCL) 08/12/2005 5 - Intolerance Comments: nightmares Date Reviewed: 07/20/2017 Reviewed by: Winnie Overton MA - Fully Assessed Reason for Visit: Established Patient [175] Primary Visit Diagnosis:SVT (supraventricular tachycardia) (HCC) [I47.1] Other Visit Diagnosis:Essential hypertension [I10] Order(s):ECG B/O W INTERP (MED OFFICE) [ECG06] Order #: [id number] MAGNESIUM BLD [SQMG1] Order #: [id number] FUTURE Prescriptions as of 07/20/2017 Sig: METFORMIN ER 500 MG TABLET,EX* Take 1 tablet by mouth once d* GABAPENTIN 300 MG CAPSULE Take 1 capsule by mouth twice* HYDROCODONE 5 MG-ACETAMINOPHE* TAKE ONE TABLET TWICE DAILY INDOMETHACIN 25 MG CAPSULE Take 1 capsule by mouth twice* Patient taking differently: Take 25 mg by mouth twice padmini* GLIMEPIRIDE 4 MG TABLET Take 1 tablet by mouth daily * BACLOFEN 10 MG TABLET Take 1 tablet by mouth twice * LINAGLIPTIN 5 MG TABLET Take 1 tablet by mouth once d* SPIRONOLACTONE 25 MG TABLET Take 1 tablet by mouth once d* RANITIDINE 150 MG TABLET Take 1 tablet by mouth twice * FUROSEMIDE 20 MG TABLET Take 1 tablet by mouth once d* DULOXETINE 60 MG CAPSULE,JODI* Take 1 capsule by mouth once * BLOOD-GLUCOSE METER KIT Glucose Meter of Choice - Kit* BLOOD SUGAR DIAGNOSTIC STRIPS Test blood sugar(s) 2 times d* TRUETEST TEST STRIPS TEST twice a day LANCETS 30 GAUGE Test twice daily Dx: 250.02 PRIMIDONE 50 MG TABLET TAKE ONE TABLET ONCE DAILY AT* TRAZODONE 50 MG TABLET Take 0.5 tablets by mouth padmini* ARIPIPRAZOLE 10 MG TABLET Take 1 tablet by mouth once d* NYSTATIN 100,000 UNIT/GRAM TO* Apply 1 application to affect* POTASSIUM CHLORIDE ER 10 MEQ * Take 1 tablet by mouth once d* NITROGLYCERIN 0.4 MG SUBLINGU* Dissolve 1 tablet under the t* POLYETHYLENE GLYCOL 3350 17 G* Take 17 g by mouth once daily. CETIRIZINE 5 MG TABLET Take 10 mg by mouth once roseanna* ASPIRIN 81 MG TABLET,DELAYED * Take 1 tablet by mouth once d* Problem List As Of Date 07/20/2017 Noted Resolved Major depressive disorder, recurrent episode, u*INVALID FOR*11/24/2014 Priority: A More... Anxiety state [F41.1] INVALID FOR* BENIGN HYPERTENSION [I10] INVALID FOR* OSTEOARTHROS NOS-UNSPEC [M19.90] INVALID FOR*02/07/2007 ABNL GLANDULAR PAP SMEAR CERVIX [R87.619] INVALID FOR* HYPERPROLACTINEMIA [E22.9] INVALID FOR* IRREGULAR MENSTRUATION [N92.6] INVALID FOR* ESOPHAGEAL REFLUX [K21.9] INVALID FOR* ACUTE GASTRITIS W/O HEMORRHAGE [K29.00] INVALID FOR*02/07/2007 DIAPHRAGMATIC HERNIA [K44.9] INVALID FOR* Unspecified gastritis and gastroduodenitis with*INVALID FOR*07/24/2016 Localized osteoarthrosis not specified whether *INVALID FOR*07/24/2016 Priority: A More... Pain in joint, site unspecified [M25.50] INVALID FOR*07/24/2016 Routine general medical examination at a health*INVALID FOR*11/29/2011 Class: Chronic More... Routine gynecological examination [Z01.419] INVALID FOR*11/29/2011 Class: Chronic More... More... Morbid obesity [E66.01] INVALID FOR* Priority: Very Severe Hyperprolactinemia [E22.1] INVALID FOR*01/30/2012 Obstructive sleep apnea [G47.33] INVALID FOR* Priority: Severe More... Medication Side Effects [T88.7XXA] INVALID FOR* SVT (supraventricular tachycardia) [I47.1] Priority: A Type II or unspecified type diabetes mellitus w*INVALID FOR*04/10/2012 Priority: Moderate More... Congestive heart failure [I50.9] INVALID FOR* Spondylolisthesis [M43.10] INVALID FOR* Lumbar facet arthropathy [M46.96] INVALID FOR* DDD (degenerative disc disease), lumbar [M51.36]INVALID FOR* Diabetes mellitus [E11.9] INVALID FOR*11/24/2014 DDD (degenerative disc disease), cervical [M50.*INVALID FOR* DM (diabetes mellitus) (HCC) [E11.9] INVALID FOR* PMB (postmenopausal bleeding) [N95.0] INVALID FOR* Dysthymia [F34.1] INVALID FOR* Major depressive disorder, recurrent episode, m*INVALID FOR* More... Pain disorder with psychological factors [F45.4*INVALID FOR* Diffuse myofascial pain syndrome [M79.1] INVALID FOR* Bilateral primary osteoarthritis of knee [M17.0]INVALID FOR* Other instructions from your clinician: LIFESTYLE CHANGE A healthy lifestyle is the most important component of your overall treatment plan. Please give serious thought to the following areas and commit to making group home changes. EAT A WHOLE FOOD, PLANT BASED DIET The nutrition your body gets is more important than the medicine you take. What matters most is the overall way you eat. We encourage you to minimize the use of animal products (which include dairy and all meats except fatty fish) and use whole, unprocessed plant foods to provide your protein, vitamins and other nutrients. We have a lot of information to share with you on this topic. This is not a diet. It is a way of life that you will keep with you. EXERCISE REGULARLY It is not important to spend hours in the gym, lifting weights and perspiring heavily. A total of 2-3 hours per week of aerobic (causing you to be moderately short of breath) exercise is sufficient to improve your health. Talk to us before you begin a new exercise program, if you have heart disease or experience shortness of breath or chest pain. REDUCE STRESS Chronic emotional and physical stress leads to disease. Ways of reducing stress include meditation, visualization, prayer, yoga and other forms of relaxation therapy. Consistency is the doll. Find a technique that works for you and do it every day. CULTIVATE RELATIONSHIPS Loneliness and isolation have a major negative impact on health. Seek out others who can love, care for and nurture you. Avoid hurtful relationships. MAINTAIN IDEAL BODY WEIGHT The best way to do this is to do all the things above. Our bodies naturally find the right weight if we keep moving and feed ourselves the right food. If your BMI is greater than 25, we strongly recommend a referral to a weight management program. Please speak to us or your family physician about available programs. AVOID NICOTINE IN ALL FORMS This includes all tobacco products, whether chewed, smoked, vaped, or rubbed on the skin. Smoking cessation programs, which can make use of tobacco substitutes, medications to suppress cravings and behavior management, are available. Please contact your family physician about programs in your area. Encounter Status:Closed by SHORTY ELIZONDO MD on 07/20/17 KENYA Observed: 07/19/2017 Status: COMPLETED Source: [place] 12:00 AM [facility] [place] Tele[facility] ([facility]) KATHLEEN KHAN V ([id number]) 1960 F Date Time Provider Department 07/19/17 JAK (PHARMACIST), ARNAV SOSA During your visit today, we recorded the following information about you: RADHAMES VERDIN 07/19/2017 9:27 AM Signed Patient calling to request PharmD appointment sooner than 08/07. Patient's concern is the metformin causing loose stools. Denies trying metformin ER in the past. Willing to try that at this time and then meet on 08/07 to follow-up. Current Outpatient Prescriptions: glimepiride (AMARYL) 4 mg tablet Take 1 tablet by mouth daily with breakfast. linagliptin (TRADJENTA) 5 mg tab Take 1 tablet by mouth once daily. START metformin ER 500mg once daily - increase to 1,000mg once daily after 1 week if tolerating CONTINUE glimepiride and linagliptin Instructed patient that bloodwork ordered and needs completed. She will do so tomorrow. PharmD f/u via telephone as needed and OV on 08/07 Arnav Benedict PharmD, [facility] RADHAMES VERDIN 07/25/2017 10:17 AM Signed Patient calling to update that has been taking metformin ER 500mg once daily at the end of a meal and still experiencing loose stools. Prefers to stop at this time. Will discuss other DM medication options at OV on 08/07 Arnav Benedict PharmD, BCPS Allergies As of Date: 07/19/2017 Noted Allergy Reaction LYRICA (PREGABALIN) 08/05/2012 10 - Anaphylaxis Comments: Not sure if accurate. Can take gabapentin. Patient is unsure of reaction. ACCUPRIL (QUINAPRIL HCL) 08/12/2005 5 - Intolerance Comments: dizziness AMLODIPINE 04/24/2008 7 - Swelling Comments: Leg edema ATENOLOL 09/29/2010 7 - Swelling EFFEXOR (VENLAFAXINE HCL) 09/22/2005 Comments: swelling high blood pressure JANUVIA (SITAGLIPTIN) 09/21/2011 8 - GI Upset 14 - Other: See Comments Comments: Patient states she couldn't eat METOPROLOL 09/21/2009 7 - Swelling MOBIC (MELOXICAM) 08/12/2005 8 - GI Upset PROZAC (FLUOXETINE HCL) 08/12/2005 5 - Intolerance Comments: tremor RISPERIDONE 12/22/2009 1 - Mental Status Change SEROQUEL (QUETIAPINE FUMARATE) 10/05/2006 Comments: hypertension,swelling VIOXX (ROFECOXIB) 08/12/2005 8 - GI Upset WELLBUTRIN (BUPROPION HCL) 08/12/2005 5 - Intolerance Comments: nightmares Date Reviewed: 07/03/2017 Reviewed by: Francisca James RN - Fully Assessed Reason for Visit: Future Appointment [256] Order(s):metFORMIN ER (GLUCOPHAGE XR) 500 mg 24 hr tabletTake 1 tablet by mouth once daily. After one week increase the dose to 2 tablets once dailyDisp: 60 tabletRfl: 1 Prescriptions as of 07/19/2017 Sig: METFORMIN ER 500 MG TABLET,EX* Take 1 tablet by mouth once d* GABAPENTIN 300 MG CAPSULE Take 1 capsule by mouth twice* HYDROCODONE 5 MG-ACETAMINOPHE* TAKE ONE TABLET TWICE DAILY INDOMETHACIN 25 MG CAPSULE Take 1 capsule by mouth twice* Patient taking differently: Take 25 mg by mouth twice padmini* GLIMEPIRIDE 4 MG TABLET Take 1 tablet by mouth daily * BACLOFEN 10 MG TABLET Take 1 tablet by mouth twice * LINAGLIPTIN 5 MG TABLET Take 1 tablet by mouth once d* SPIRONOLACTONE 25 MG TABLET Take 1 tablet by mouth once d* RANITIDINE 150 MG TABLET Take 1 tablet by mouth twice * FUROSEMIDE 20 MG TABLET Take 1 tablet by mouth once d* DULOXETINE 60 MG CAPSULE,JODI* Take 1 capsule by mouth once * BLOOD-GLUCOSE METER KIT Glucose Meter of Choice - Kit* BLOOD SUGAR DIAGNOSTIC STRIPS Test blood sugar(s) 2 times d* TRUETEST TEST STRIPS TEST twice a day LANCETS 30 GAUGE Test twice daily Dx: 250.02 PRIMIDONE 50 MG TABLET TAKE ONE TABLET ONCE DAILY AT* TRAZODONE 50 MG TABLET Take 0.5 tablets by mouth padmini* ARIPIPRAZOLE 10 MG TABLET Take 1 tablet by mouth once d* NYSTATIN 100,000 UNIT/GRAM TO* Apply 1 application to affect* POTASSIUM CHLORIDE ER 10 MEQ * Take 1 tablet by mouth once d* NITROGLYCERIN 0.4 MG SUBLINGU* Dissolve 1 tablet under the t* POLYETHYLENE GLYCOL 3350 17 G* Take 17 g by mouth once daily. CETIRIZINE 5 MG TABLET Take 10 mg by mouth once roseanna* ASPIRIN 81 MG TABLET,DELAYED * Take 1 tablet by mouth once d* Problem List As Of Date 07/19/2017 Noted Resolved Major depressive disorder, recurrent episode, u*INVALID FOR*11/24/2014 Priority: A More... Anxiety state [F41.1] INVALID FOR* BENIGN HYPERTENSION [I10] INVALID FOR* OSTEOARTHROS NOS-UNSPEC [M19.90] INVALID FOR*02/07/2007 ABNL GLANDULAR PAP SMEAR CERVIX [R87.619] INVALID FOR* HYPERPROLACTINEMIA [E22.9] INVALID FOR* IRREGULAR MENSTRUATION [N92.6] INVALID FOR* ESOPHAGEAL REFLUX [K21.9] INVALID FOR* ACUTE GASTRITIS W/O HEMORRHAGE [K29.00] INVALID FOR*02/07/2007 DIAPHRAGMATIC HERNIA [K44.9] INVALID FOR* Unspecified gastritis and gastroduodenitis with*INVALID FOR*07/24/2016 Localized osteoarthrosis not specified whether *INVALID FOR*07/24/2016 Priority: A More... Pain in joint, site unspecified [M25.50] INVALID FOR*07/24/2016 Routine general medical examination at a health*INVALID FOR*11/29/2011 Class: Chronic More... Routine gynecological examination [Z01.419] INVALID FOR*11/29/2011 Class: Chronic More... More... Morbid obesity [E66.01] INVALID FOR* Priority: Very Severe Hyperprolactinemia [E22.1] INVALID FOR*01/30/2012 Obstructive sleep apnea [G47.33] INVALID FOR* Priority: Severe More... Medication Side Effects [T88.7XXA] INVALID FOR* SVT (supraventricular tachycardia) [I47.1] Priority: A Type II or unspecified type diabetes mellitus w*INVALID FOR*04/10/2012 Priority: Moderate More... Congestive heart failure [I50.9] INVALID FOR* Spondylolisthesis [M43.10] INVALID FOR* Lumbar facet arthropathy [M46.96] INVALID FOR* DDD (degenerative disc disease), lumbar [M51.36]INVALID FOR* Diabetes mellitus [E11.9] INVALID FOR*11/24/2014 DDD (degenerative disc disease), cervical [M50.*INVALID FOR* DM (diabetes mellitus) (HCC) [E11.9] INVALID FOR* PMB (postmenopausal bleeding) [N95.0] INVALID FOR* Dysthymia [F34.1] INVALID FOR* Major depressive disorder, recurrent episode, m*INVALID FOR* More... Pain disorder with psychological factors [F45.4*INVALID FOR* Diffuse myofascial pain syndrome [M79.1] INVALID FOR* Bilateral primary osteoarthritis of knee [M17.0]INVALID FOR* Prescriptions ordered this encounter Disp Refills Start End METFORMIN ER 500 MG TABLET,EXTENDED * 60 t* 1 07/19/2017 Route: ORAL Sig: Take 1 tablet by mouth once daily. After one week increase the dose to 2 tablets once daily Medications Discontinued During This Encounter metFORMIN (GLUCOPHAGE) 500 mg tablet 60 t* 5 06/29/2017 07/19/2017 Route: ORAL Sig: Take 1 tablet by mouth twice daily with meals. Disc: Reason for discontinue is not on file. Encounter Status:Closed by JAK (PHARMACIST)ARNAV on 07/19/17 KENYA Observed: 07/12/2017 Status: COMPLETED Source: [place] 12:00 AM [facility] REPOSITORY Telephone [facility] KATHLEEN KHAN V ([id number]) 1960 F Date Time Provider Department 07/12/17 [facility] During your visit today, we recorded the following information about you: Dari Lee, RN, RN 07/12/2017 9:57 AM Signed Kathleengabriel Khan is a 57 year old female who reports glucose readings as noted. Meal # 1 = Breakfast or first meal of day, Meal # 2 = Lunch, # 3 = Evening meal DATE 01 31 14 15 Fasting 184 172 165 175 Post Meal #1 Before Meal Post Meal # 2 Before Meal Post Meal # 3 251 174 185 226 Bedtime Other DATE 17 18 19 Fasting 174 165 226 174 Post Meal #1 Before Meal Post Meal # 2 Before Meal Post Meal # 3 203 211 190 231 Bedtime Other DATE Fasting 200 195 205 171 Post Meal #1 Before Meal Post Meal # 2 Before Meal Post Meal # 3 252 235 201 173 Bedtime Other Any low blood sugars during this period of reporting No Patient's diabetes medications as follows Pt was in to see pcp on 06/29/17 and pt's metformin was increased and pt was told to call blood sugars in to pcp. Pt also voiced that the metformin is giving her loose stools like before and doesn't think that she take this medication. Vincent Herbert MD 07/13/2017 8:47 AM Signed Next step would then be to see pharmacy to consider things like insulin. Make sure taking metformin with food. Set up appt Carolina Newton [facility] 07/13/2017 9:32 AM Signed Patient notified and verbalized understanding. Patient transferred to electrical cad technician to schedule with pharmacy. [facility] 07/13/2017 10:24 AM Signed Scheduled with the pharmacist on 08/07/[address] [facility] Allergies As of Date: 07/12/2017 Noted Allergy Reaction LYRICA (PREGABALIN) 08/05/2012 10 - Anaphylaxis Comments: Not sure if accurate. Can take gabapentin. Patient is unsure of reaction. ACCUPRIL (QUINAPRIL HCL) 08/12/2005 5 - Intolerance Comments: dizziness AMLODIPINE 04/24/2008 7 - Swelling Comments: Leg edema ATENOLOL 09/29/2010 7 - Swelling EFFEXOR (VENLAFAXINE HCL) 09/22/2005 Comments: swelling high blood pressure JANUVIA (SITAGLIPTIN) 09/21/2011 8 - GI Upset 14 - Other: See Comments Comments: Patient states she couldn't eat METOPROLOL 09/21/2009 7 - Swelling MOBIC (MELOXICAM) 08/12/2005 8 - GI Upset PROZAC (FLUOXETINE HCL) 08/12/2005 5 - Intolerance Comments: tremor RISPERIDONE 12/22/2009 1 - Mental Status Change SEROQUEL (QUETIAPINE FUMARATE) 10/05/2006 Comments: hypertension,swelling VIOXX (ROFECOXIB) 08/12/2005 8 - GI Upset WELLBUTRIN (BUPROPION HCL) 08/12/2005 5 - Intolerance Comments: nightmares Date Reviewed: 07/03/2017 Reviewed by: Francisca James RN - Fully Assessed Reason for Visit: blood sugar results [Other] Primary Visit Diagnosis:Type 2 diabetes mellitus without complication, unspecified whether group home insulin use (HCC) [E11.9] Order(s):CONSULT TO AMBULATORY CLINIC PHARMACY [[id number]] Order #: [id number]: 1 Prescriptions as of 07/12/2017 Sig: GABAPENTIN 300 MG CAPSULE Take 1 capsule by mouth twice* METFORMIN 500 MG TABLET Take 1 tablet by mouth twice * HYDROCODONE 5 MG-ACETAMINOPHE* TAKE ONE TABLET TWICE DAILY INDOMETHACIN 25 MG CAPSULE Take 1 capsule by mouth twice* Patient taking differently: Take 25 mg by mouth twice padmini* GLIMEPIRIDE 4 MG TABLET Take 1 tablet by mouth daily * BACLOFEN 10 MG TABLET Take 1 tablet by mouth twice * LINAGLIPTIN 5 MG TABLET Take 1 tablet by mouth once d* SPIRONOLACTONE 25 MG TABLET Take 1 tablet by mouth once d* RANITIDINE 150 MG TABLET Take 1 tablet by mouth twice * FUROSEMIDE 20 MG TABLET Take 1 tablet by mouth once d* DULOXETINE 60 MG CAPSULE,JODI* Take 1 capsule by mouth once * BLOOD-GLUCOSE METER KIT Glucose Meter of Choice - Kit* BLOOD SUGAR DIAGNOSTIC STRIPS Test blood sugar(s) 2 times d* TRUETEST TEST STRIPS TEST twice a day LANCETS 30 GAUGE Test twice daily Dx: 250.02 PRIMIDONE 50 MG TABLET TAKE ONE TABLET ONCE DAILY AT* TRAZODONE 50 MG TABLET Take 0.5 tablets by mouth padmini* ARIPIPRAZOLE 10 MG TABLET Take 1 tablet by mouth once d* NYSTATIN 100,000 UNIT/GRAM TO* Apply 1 application to affect* POTASSIUM CHLORIDE ER 10 MEQ * Take 1 tablet by mouth once d* NITROGLYCERIN 0.4 MG SUBLINGU* Dissolve 1 tablet under the t* POLYETHYLENE GLYCOL 3350 17 G* Take 17 g by mouth once daily. CETIRIZINE 5 MG TABLET Take 10 mg by mouth once roseanna* ASPIRIN 81 MG TABLET,DELAYED * Take 1 tablet by mouth once d* Problem List As Of Date 07/12/2017 Noted Resolved Major depressive disorder, recurrent episode, u*INVALID FOR*11/24/2014 Priority: A More... Anxiety state [F41.1] INVALID FOR* BENIGN HYPERTENSION [I10] INVALID FOR* OSTEOARTHROS NOS-UNSPEC [M19.90] INVALID FOR*02/07/2007 ABNL GLANDULAR PAP SMEAR CERVIX [R87.619] INVALID FOR* HYPERPROLACTINEMIA [E22.9] INVALID FOR* IRREGULAR MENSTRUATION [N92.6] INVALID FOR* ESOPHAGEAL REFLUX [K21.9] INVALID FOR* ACUTE GASTRITIS W/O HEMORRHAGE [K29.00] INVALID FOR*02/07/2007 DIAPHRAGMATIC HERNIA [K44.9] INVALID FOR* Unspecified gastritis and gastroduodenitis with*INVALID FOR*07/24/2016 Localized osteoarthrosis not specified whether *INVALID FOR*07/24/2016 Priority: A More... Pain in joint, site unspecified [M25.50] INVALID FOR*07/24/2016 Routine general medical examination at a health*INVALID FOR*11/29/2011 Class: Chronic More... Routine gynecological examination [Z01.419] INVALID FOR*11/29/2011 Class: Chronic More... More... Morbid obesity [E66.01] INVALID FOR* Priority: Very Severe Hyperprolactinemia [E22.1] INVALID FOR*01/30/2012 Obstructive sleep apnea [G47.33] INVALID FOR* Priority: Severe More... Medication Side Effects [T88.7XXA] INVALID FOR* SVT (supraventricular tachycardia) [I47.1] Priority: A Type II or unspecified type diabetes mellitus w*INVALID FOR*04/10/2012 Priority: Moderate More... Congestive heart failure [I50.9] INVALID FOR* Spondylolisthesis [M43.10] INVALID FOR* Lumbar facet arthropathy [M46.96] INVALID FOR* DDD (degenerative disc disease), lumbar [M51.36]INVALID FOR* Diabetes mellitus [E11.9] INVALID FOR*11/24/2014 DDD (degenerative disc disease), cervical [M50.*INVALID FOR* DM (diabetes mellitus) ([facility]) [E11.9] INVALID FOR* PMB (postmenopausal bleeding) [N95.0] INVALID FOR* Dysthymia [F34.1] INVALID FOR* Major depressive disorder, recurrent episode, m*INVALID FOR* More... Pain disorder with psychological factors [F45.4*INVALID FOR* Diffuse myofascial pain syndrome [M79.1] INVALID FOR* Bilateral primary osteoarthritis of knee [M17.0]INVALID FOR* Encounter Status:Closed by WORKMAN CAROLINA MEDRANO on 07/13/17 XR FOOT 3V AP/LAT/OBL Observed: 07/03/2017 Status: F Source: [facility] 2:05 PM [facility] REPOSITORY * * *Final Report* * * DATE OF EXAM: Jul 03 2017 2:05PM [id number] - XR FOOT 3V AP/LAT/OBL LT / PROCEDURE REASON: Hallux valgus (acquired), right foot * * * * Physician Interpretation * * * * Indication: Bilateral hallux valgus deformities Comparison: None AP, lateral and oblique views of the right foot and the left foot are obtained. There is no acute fracture or dislocation. There are bilateral hallux valgus deformities with bilateral first metatarsophalangeal joint degenerative disease. There is bilateral mid foot degenerative disease. There are bilateral plantar and posterior calcaneal spurs. Impression: 1. No acute fracture or dislocation. 2. Degenerative disease of bilateral feet 3. Bilateral hallux valgus deformities Plate Grainer: [facility] Transcribe Date/Time: Jul 03 2017 8:33P Dictated by : KATI TURCIOS MD This examination was interpreted and the report reviewed and electronically signed by: KATI TURCIOS MD on Jul 03 2017 8:38PM EST [id number] XR FOOT 3V AP/LAT/OBL Observed: 07/03/2017 Status: F Source: [facility] 2:05 PM [facility] REPOSITORY * * *Final Report* * * DATE OF EXAM: Jul 03 2017 2:05PM [id number] - XR FOOT 3V AP/LAT/OBL RT / PROCEDURE REASON: Hallux valgus (acquired), right foot * * * * Physician Interpretation * * * * Indication: Bilateral hallux valgus deformities Comparison: None AP, lateral and oblique views of the right foot and the left foot are obtained. There is no acute fracture or dislocation. There are bilateral hallux valgus deformities with bilateral first metatarsophalangeal joint degenerative disease. There is bilateral mid foot degenerative disease. There are bilateral plantar and posterior calcaneal spurs. Impression: 1. No acute fracture or dislocation. 2. Degenerative disease of bilateral feet 3. Bilateral hallux valgus deformities Plate Grainer: [facility] Transcribe Date/Time: Jul 03 2017 8:33P Dictated by : KATI TURCIOS MD This examination was interpreted and the report reviewed and electronically signed by: KATI TURCIOS MD on Jul 03 2017 8:38PM EST [id number] PROGRESS Observed: 07/03/2017 Status: COMPLETED Source: [place] 1:43 PM [facility] REPOSITORY HNO ID: [id number] Author: Kelly Sharma (Rt) Antoine Oliveros Service: (none) Author Type: Automation Driver Type: Progress Notes Filed: 07/03/2017 2:05 PM Note Text: Radiology Service Progress Note PATIENT NAME: Kathleen Khan DATE OF SERVICE: July 03, 2017 TIME: 1:43 PM PATIENT IDENTITY VERIFICATION COMPLETED USING TWO (2) METHODS: Patient confirmed name verbally and Date of . PATIENT GENDER DATA: Female. status: : No status: NO. PATIENT RELEVANT IMPLANT DATA REVIEWED: Not Applicable RADIOLOGY DEPARTMENT: General X-ray: Exam(s) Completed: Lower Extremity X-Ray(s): Foot, Bilateral: PERIPHERAL IV DATA: Not applicable SIGNED BY: RT Barbara July 03, 2017 1:43 PM CNOV Observed: 07/03/2017 Status: COMPLETED Source: [place] 1:25 PM [facility] REPOSITORY Office Visit (PODIWS) KATHLEEN KHAN V ([id number]) 1960 F Date Time Provider Department 07/03/17 1:25 PM SMITHA WILSON PODIWS During your visit today, we recorded the following information about you: Smitha Wilson DPM 07/03/2017 10:21 PM Signed Initial Office Visit Subjective: This 57 year old female presents to clinic for diabetic foot check. Patient has the following complaints: diabetic foot exam and painful bunion of right foot. Patient admits to being diabetic for 10 years now and states that their blood sugar was 165 mg/dL this AM. Patient + B/T/N in feet at this time. Patient + pain in legs when walking. Patient also complains of bunion to right foot. She states the foot bothers her off/on for the past year. She states that it will often hurt 2-3 days/week. She states she thinks that she may be developing bunion on left foot. Patient is not currently taking anything otc for pain. Patient does take norco for legs and back and that does help. No other pedal complaints at this time. No change in medications or medical history since last visit. PAIN EVALUATION 07/03/2017 Pain Score: 5 Pain Location: Foot-Right rt and left foot, rt and left knees Description: Aching;Dull Frequency: Continuous Hemoglobin A1C (%) Date Value 07/24/2016 6.7 04/24/2016 9.0 11/17/2015 6.3 05/22/2015 5.9 12/02/2014 5.7 PCP: Vincent Herbert MD PAST MEDICAL HISTORY Diagnosis Date - Abnormal glandular Papanicolaou smear of cervix 05/30/05 ABNL GLANDULAR PAP SMEAR CERVIX - Acute gastritis without mention of hemorrhage - Anxiety state, unspecified - Arrhythmia - Chronic cholecystitis - Chronic obstructive pulmonary disease (COPD) ([facility]) - Congestive heart failure (HCC) 10/03/2011 - Diabetes ([facility]) - diabetes II 2010 - Diaphragmatic hernia without mention of obstruction or gangrene - Dysthymic disorder Depression (non-psychotic) - Esophageal reflux - Essential hypertension, benign - Generalized OA - Localized osteoarthrosis not specified whether primary or secondary, lower leg - Major depressive disorder, recurrent episode - Mucous polyp of cervix 07/19/05 - Other and unspecified anterior pituitary hyperfunction 10/13/05 elevated prolactin level-was normal in 2011 - PMH - PAST MEDICAL HISTORY OF sleep apnea - PMH - PAST MEDICAL HISTORY OF sleep apnea - SVT (supraventricular tachycardia) (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 metFORMIN (GLUCOPHAGE) 500 mg tablet Take 1 tablet by mouth twice daily with meals. cephALEXin (KEFLEX) 500 mg capsule Take 1 capsule by mouth twice daily for 10 days. HYDROcodone-acetaminophen (NORCO) 5-325 mg per tablet TAKE ONE TABLET TWICE DAILY indomethacin (INDOCIN) 25 mg capsule Take 1 capsule by mouth twice daily with meals. Hold while on Ibuprofen (Patient taking differently: Take 25 mg by mouth twice daily with meals. ) glimepiride (AMARYL) 4 mg tablet Take 1 tablet by mouth daily with breakfast. baclofen (LIORESAL) 10 mg tablet Take 1 tablet by mouth twice daily. linagliptin (TRADJENTA) 5 mg tab Take 1 tablet by mouth once daily. spironolactone (ALDACTONE) 25 mg tablet Take 1 tablet by mouth once daily. ranitidine (ZANTAC) 150 mg tablet Take 1 tablet by mouth twice daily. furosemide (LASIX) 20 mg tablet Take 1 tablet by mouth once daily. DULoxetine (CYMBALTA) 60 mg capsule Take 1 capsule by mouth once daily. Blood-Glucose Meter monitoring kit Glucose Meter of Choice - Kit - Dx: Type 2 DM - Controlled E11.9 Use twice daily as directed blood sugar diagnostic (BLOOD GLUCOSE TEST) test strip Test blood sugar(s) 2 times daily. Dx: Type 2 DM - Controlled E11.9 Insulin: No TRUETEST TEST STRIPS test strip TEST twice a day lancets (TRUEPLUS LANCETS) 30 gauge misc Test twice daily Dx: 250.02 primidone (MYSOLINE) 50 mg tablet TAKE ONE TABLET ONCE DAILY AT BEDTIME traZODone (DESYREL) 50 mg tablet Take 0.5 tablets by mouth daily at bedtime. ARIPiprazole (ABILIFY) 10 mg tablet Take 1 tablet by mouth once daily. nystatin (MYCOSTATIN) cream Apply 1 application to affected area twice daily. potassium chloride ER (K-DUR, KLOR-CON) 10 mEq tablet Take 1 tablet by mouth once daily. nitroglycerin sublingual (NITROQUICK) 0.4 mg SL tablet Dissolve 1 tablet under the tongue as needed. FOR CHEST PAIN. IF NO RELIEF CALL 911 polyethylene glycol 3350 (MIRALAX, GLYCOLAX) 17 gram/dose powder Take 17 g by mouth once daily. cetirizine 5 mg tablet Take 10 mg by mouth once daily. aspirin, enteric coated (ECOTRIN LOW STRENGTH) 81 mg EC tablet Take 1 tablet by mouth once daily. No current facility-administered medications for this visit. ALLERGIES Allergen Reactions - Lyrica [Pregabalin] Anaphylaxis Not sure if accurate. Can take gabapentin. Patient is unsure of reaction. - Accupril [Quinapril* Intolerance dizziness - Amlodipine Swelling Leg edema - Atenolol Swelling - Effexor [Venlafaxin* swelling high blood pressure - Januvia [Sitaglipti* GI Upset, Other: See Comments Patient states she couldn't eat - Metoprolol Swelling - Mobic [Meloxicam] GI Upset - Prozac [Fluoxetine * Intolerance tremor - Risperidone Mental Status Change - Seroquel [Quetiapin* hypertension,swelling - Vioxx [Rofecoxib] GI Upset - Wellbutrin [Bupropi* Intolerance nightmares PAST SURGICAL HISTORY Procedure Laterality Date - CERVICAL BIOPSY OR EXCISION 07/19/05 endocervical polyp - COLONOSCOP W/ OR W/O BRSH SPEC 01/09/2012 Colonoscopy repeat 10 years - COLPOSCOPY (VAGINOSCOPY) Colposcopy - EGD W/O BRSH SPECIMEN W/BX 01/16/07 - EGD W/O OR W/BRUSH/WASH 01/09/2012 EGD - HYSTEROSCOPY DX 12/17/2014 DANCT - LAP CHOLECYSTECT/CHOLANGIOGRAPHY 05/15/08 FAMILY HISTORY Problem Relation Age of Onset - Hypertension Mother - Heart Mother concha stroke - Diabetes Mother - Stroke Mother Massive- - Arthritis Mother Osteoarthritis - Hypertension Father - COPD Father - Hypertension Sister 2 - Hypertension Brother 3 - Heart Brother triple bypass at 48 - Heart Maternal Aunt - Heart Maternal Uncle - Diabetes Brother 3 Brother's with diabetes - Diabetes Sister - Arthritis Sister - Arthritis Brother - Arthritis Brother - Arthritis Brother Social History Marital status: Single Spouse name: Years of education: 9 Number of children: 0 Occupational 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 Social History Main Topics Smoking status: Former Smoker Packs/day: 1.00 Years: 15.00 Types: Cigarettes Quit date: 12/20/1994 Smokeless tobacco: Never Used Alcohol use: No Drug use: No Sexual activity: No REVIEW OF SYSTEMS GENERAL: Negative for Malaise, significant weight loss, fever RESPIRATORY: Negative for cough, wheezing and shortness of breath CARDIOVASCULAR: Negative for chest pain, leg swelling and palpitations GI: Negative for abdominal discomfort, blood in stools or black stools and change in bowel habits : Negative for dysuria, frequency and incontinence MUSCULOSKELETAL: Negative for joint pain or swelling, back pain, and muscle pain. SKIN: Negative for lesions, rash, and itching. HEMATOLOGY/LYMPHOLOGY Negative for prolonged bleeding, bruising easily, and swollen nodes. ENDOCRINE: Negative for cold or heat intolerance, polyuria, polydipsia and goiter. NEURO: negative The remainder of the review of systems is noncontributory. Objective: Patient presents to clinic ambulating in [facility] Constitutional: Pt is a well developed 57 year old female who is alert, oriented, cooperative and in no apparent distress. Eyes: Following during examination. No redness or drainage. Respiratory: RR normal and nonlabored. Even breathing. No evidence of distress. Psychology: Patient is engaged during conversation. Normal affect and mood. Does not appear depressed or anxious. Vasc: DP and PT pulses are palpable bilateral. CFT is less than 5 seconds bilateral. Skin temperature is warm to warm proximal to distal bilateral. There is moderate edema or varicosities noted. Hair growth present. Neuro: Protective sensation is intact to the foot and toes when tested with the 5.07 SWM bilateral. Vibratory sensation is decreased at the hallux bilateral. + Significant neurological defecits. Derm: Inspection and palpation performed. Nails 1-5 b/l are normal in length and thickness. Skin is of normal turgor and texture. Hyperkeratosis noted to b/l hallux. NO ulcerations, scars, verruca or other lesions noted. Ortho: Ankle joint DF is full with the knee extended and full with knee flexed. No pain or crepitus noted. STJ, MTJ ROM are full and free of pain or crepitus. Muscle strength is 5/5 for dorsiflexors, plantarflexors, inverters, everters. Digital deformities include mild bunion b/l. Assessment: (M20.11) Acquired hallux valgus of right foot (primary encounter diagnosis) (L85.9) Hyperkeratosi (E11.49) Other diabetic neurological complication associated with type 2 diabetes mellitus (HCC) Plan: 1. Patient was seen and evaluated. 2. Patient was instructed on the continued importance of diabetic foot care along with proper diet and keeping their blood sugar under control to prevent complications. Instructions given both oral and written. 3. Discussed bunion of b/l foot. Recommend baseline xrays. Discussed wider shoes, padding, diabetic shoes ordered. 4. Callus filed to b/l hallux. 5. f/u in 3 months or sooner if problems develop. Smitha Wilson DPM Smitha REYES Wilson 07/03/2017 1:28 PM Signed Diabetes Foot Care Instructions When you have diabetes, proper foot care is very important. Poor foot care may lead to amputation of a foot or leg. As a person with diabetes, you are more vulnerable to foot problems, because diabetes can damage your nerves and reduce blood flow to your feet. Here are some diabetes foot care tips to follow: Wash and Dry Your Feet Daily Use mild soaps Use warm water Pat your skin dry; do not rub. Thoroughly dry your feet. After washing, use lotion on your feet to prevent cracking. Do not put lotion between your toes. ? Examine Your Feet Each Day Check the tops and bottoms of your feet. Have someone else look at your feet if you cannot see them. Check for dry, cracked skin. Look for blisters, cuts, scratches, or other sores. Check for redness, increased warmth, or tenderness when touching any area of your feet. Check for ingrown toenails, corns, and calluses. If you get a blister or sore from your shoes, do not pop it. Apply a bandage and wear a different pair of shoes. Take Care of Your Toenails Cut toenails after bathing, when they are soft. Cut toenails straight across and smooth with a nail file. Avoid cutting into the corners of toes. Do not cut cuticles. If you have neuropathy (or decreased sensation in your feet) a assistant customer service manager should always cut your toenails. ? Be Careful When Exercising Walk and exercise in comfortable shoes. Do not exercise when you have open sores on your feet. Protect Your Feet With Shoes and Socks Never go barefoot. Always protect your feet by wearing shoes or hard-soled slippers or footwear. Avoid shoes with high heels and pointed toes. Avoid shoes that expose your toes or heels (such as open-toed shoes or sandals). These types of shoes increase your risk for injury and potential infections. Try on new footwear with the type of socks you usually wear. Do not wear new shoes for more than an hour at a time. Change your socks daily. Look and feel inside your shoes before putting them on to make sure there are no foreign objects or rough areas. Avoid tight socks. Wear natural-fiber socks (cotton, wool, or a cotton-wool blend). Wear special shoes if your health care provider recommends them. Wear shoes/boots that will protect your feet from various weather conditions (cold, moisture, etc.). Make sure your shoes fit properly. If you have neuropathy (nerve damage), you may not notice that your shoes are too tight. Perform the footwear test described below. Footwear Test Use this simple test to see if your shoes fit correctly: Stand on a piece of paper. (Make sure you are standing and not sitting, because your foot changes shape when you stand.) Trace the outline of your foot. Trace the outline of your shoe. Compare the tracings: Is the shoe too narrow? Is your foot crammed into the shoe? The shoe should be at least 1/2 inch longer than your longest toe and as wide as your foot. Proper Shoe Choices The following types of shoes are best for people with diabetes Closed toes and heels Leather uppers without a seam inside At least 1/2 inch extra space at the end of your longest toe Inside of shoe should be soft with no rough areas Outer sole should be made of stiff material Shoes should be at least as wide as your feet Tips for Foot Care in Diabetes Don't wait to treat a minor foot problem if you have diabetes. Follow your health care provider's guidelines and first aid guidelines. Report foot injuries and infections to your health care provider immediately. Check water temperature with your elbow, not your foot. Do not use a heating pad on your feet. Do not cross your legs. Do not self-treat your corns, calluses, or other foot problems. Go to your health care provider or assistant customer service manager to treat these conditions. Referring Provider: VINCENT HERBERT [[id number]] Allergies As of Date: 07/03/2017 Noted Allergy Reaction LYRICA (PREGABALIN) 08/05/2012 10 - Anaphylaxis Comments: Not sure if accurate. Can take gabapentin. Patient is unsure of reaction. ACCUPRIL (QUINAPRIL HCL) 08/12/2005 5 - Intolerance Comments: dizziness AMLODIPINE 04/24/2008 7 - Swelling Comments: Leg edema ATENOLOL 09/29/2010 7 - Swelling EFFEXOR (VENLAFAXINE HCL) 09/22/2005 Comments: swelling high blood pressure JANUVIA (SITAGLIPTIN) 09/21/2011 8 - GI Upset 14 - Other: See Comments Comments: Patient states she couldn't eat METOPROLOL 09/21/2009 7 - Swelling MOBIC (MELOXICAM) 08/12/2005 8 - GI Upset PROZAC (FLUOXETINE HCL) 08/12/2005 5 - Intolerance Comments: tremor RISPERIDONE 12/22/2009 1 - Mental Status Change SEROQUEL (QUETIAPINE FUMARATE) 10/05/2006 Comments: hypertension,swelling VIOXX (ROFECOXIB) 08/12/2005 8 - GI Upset WELLBUTRIN (BUPROPION HCL) 08/12/2005 5 - Intolerance Comments: nightmares Date Reviewed: 07/03/2017 Reviewed by: Francisca James RN - Fully Assessed Reason for Visit: Diabetic Foot Care [916] Primary Visit Diagnosis:Acquired hallux valgus of right foot [M20.11] Other Visit Diagnoses:Hyperkeratosis [L85.9] Other diabetic neurological complication associated with type 2 diabetes mellitus (HCC) [E11.49] Order(s):XR FOOT GENERAL 3V AP/LAT/OBL RT [[id number]] Order #: [id number] FUTURE XR FOOT GENERAL 3V AP/LAT/OBL LT [[id number]] Order #: [id number] FUTURE DIAB SHOE FOR DENSITY INSERT [[id number]] Order #: [id number] Prescriptions as of 07/03/2017 Sig: GABAPENTIN 300 MG CAPSULE Take 1 capsule by mouth twice* METFORMIN 500 MG TABLET Take 1 tablet by mouth twice * CEPHALEXIN 500 MG CAPSULE Take 1 capsule by mouth twice* HYDROCODONE 5 MG-ACETAMINOPHE* TAKE ONE TABLET TWICE DAILY INDOMETHACIN 25 MG CAPSULE Take 1 capsule by mouth twice* Patient taking differently: Take 25 mg by mouth twice padmini* GLIMEPIRIDE 4 MG TABLET Take 1 tablet by mouth daily * BACLOFEN 10 MG TABLET Take 1 tablet by mouth twice * LINAGLIPTIN 5 MG TABLET Take 1 tablet by mouth once d* SPIRONOLACTONE 25 MG TABLET Take 1 tablet by mouth once d* RANITIDINE 150 MG TABLET Take 1 tablet by mouth twice * FUROSEMIDE 20 MG TABLET Take 1 tablet by mouth once d* DULOXETINE 60 MG CAPSULE,JODI* Take 1 capsule by mouth once * BLOOD-GLUCOSE METER KIT Glucose Meter of Choice - Kit* BLOOD SUGAR DIAGNOSTIC STRIPS Test blood sugar(s) 2 times d* TRUETEST TEST STRIPS TEST twice a day LANCETS 30 GAUGE Test twice daily Dx: 250.02 PRIMIDONE 50 MG TABLET TAKE ONE TABLET ONCE DAILY AT* TRAZODONE 50 MG TABLET Take 0.5 tablets by mouth padmini* ARIPIPRAZOLE 10 MG TABLET Take 1 tablet by mouth once d* NYSTATIN 100,000 UNIT/GRAM TO* Apply 1 application to affect* POTASSIUM CHLORIDE ER 10 MEQ * Take 1 tablet by mouth once d* NITROGLYCERIN 0.4 MG SUBLINGU* Dissolve 1 tablet under the t* POLYETHYLENE GLYCOL 3350 17 G* Take 17 g by mouth once daily. CETIRIZINE 5 MG TABLET Take 10 mg by mouth once roseanna* ASPIRIN 81 MG TABLET,DELAYED * Take 1 tablet by mouth once d* Problem List As Of Date 07/03/2017 Noted Resolved Major depressive disorder, recurrent episode, u*INVALID FOR*11/24/2014 Priority: A More... Anxiety state [F41.1] INVALID FOR* BENIGN HYPERTENSION [I10] INVALID FOR* OSTEOARTHROS NOS-UNSPEC [M19.90] INVALID FOR*02/07/2007 ABNL GLANDULAR PAP SMEAR CERVIX [R87.619] INVALID FOR* HYPERPROLACTINEMIA [E22.9] INVALID FOR* IRREGULAR MENSTRUATION [N92.6] INVALID FOR* ESOPHAGEAL REFLUX [K21.9] INVALID FOR* ACUTE GASTRITIS W/O HEMORRHAGE [K29.00] INVALID FOR*02/07/2007 DIAPHRAGMATIC HERNIA [K44.9] INVALID FOR* Unspecified gastritis and gastroduodenitis with*INVALID FOR*07/24/2016 Localized osteoarthrosis not specified whether *INVALID FOR*07/24/2016 Priority: A More... Pain in joint, site unspecified [M25.50] INVALID FOR*07/24/2016 Routine general medical examination at a health*INVALID FOR*11/29/2011 Class: Chronic More... Routine gynecological examination [Z01.419] INVALID FOR*11/29/2011 Class: Chronic More... More... Morbid obesity [E66.01] INVALID FOR* Priority: Very Severe Hyperprolactinemia [E22.1] INVALID FOR*01/30/2012 Obstructive sleep apnea [G47.33] INVALID FOR* Priority: Severe More... Medication Side Effects [T88.7XXA] INVALID FOR* SVT (supraventricular tachycardia) [I47.1] Priority: A Type II or unspecified type diabetes mellitus w*INVALID FOR*04/10/2012 Priority: Moderate More... Congestive heart failure [I50.9] INVALID FOR* Spondylolisthesis [M43.10] INVALID FOR* Lumbar facet arthropathy [M46.96] INVALID FOR* DDD (degenerative disc disease), lumbar [M51.36]INVALID FOR* Diabetes mellitus [E11.9] INVALID FOR*11/24/2014 DDD (degenerative disc disease), cervical [M50.*INVALID FOR* DM (diabetes mellitus) (HCC) [E11.9] INVALID FOR* PMB (postmenopausal bleeding) [N95.0] INVALID FOR* Dysthymia [F34.1] INVALID FOR* Major depressive disorder, recurrent episode, m*INVALID FOR* More... Pain disorder with psychological factors [F45.4*INVALID FOR* Diffuse myofascial pain syndrome [M79.1] INVALID FOR* Bilateral primary osteoarthritis of knee [M17.0]INVALID FOR* Other instructions from your clinician: Diabetes Foot Care Instructions When you have diabetes, proper foot care is very important. Poor foot care may lead to amputation of a foot or leg. As a person with diabetes, you are more vulnerable to foot problems, because diabetes can damage your nerves and reduce blood flow to your feet. Here are some diabetes foot care tips to follow: Wash and Dry Your Feet Daily Use mild soaps Use warm water Pat your skin dry; do not rub. Thoroughly dry your feet. After washing, use lotion on your feet to prevent cracking. Do not put lotion between your toes. ? Examine Your Feet Each Day Check the tops and bottoms of your feet. Have someone else look at your feet if you cannot see them. Check for dry, cracked skin. Look for blisters, cuts, scratches, or other sores. Check for redness, increased warmth, or tenderness when touching any area of your feet. Check for ingrown toenails, corns, and calluses. If you get a blister or sore from your shoes, do not pop it. Apply a bandage and wear a different pair of shoes. Take Care of Your Toenails Cut toenails after bathing, when they are soft. Cut toenails straight across and smooth with a nail file. Avoid cutting into the corners of toes. Do not cut cuticles. If you have neuropathy (or decreased sensation in your feet) a assistant customer service manager should always cut your toenails. ? Be Careful When Exercising Walk and exercise in comfortable shoes. Do not exercise when you have open sores on your feet. Protect Your Feet With Shoes and Socks Never go barefoot. Always protect your feet by wearing shoes or hard-soled slippers or footwear. Avoid shoes with high heels and pointed toes. Avoid shoes that expose your toes or heels (such as open- toed shoes or sandals). These types of shoes increase your risk for injury and potential infections. Try on new footwear with the type of socks you usually wear. Do not wear new shoes for more than an hour at a time. Change your socks daily. Look and feel inside your shoes before putting them on to make sure there are no foreign objects or rough areas. Avoid tight socks. Wear natural-fiber socks (cotton, wool, or a cotton-wool blend). Wear special shoes if your health care provider recommends them. Wear shoes/boots that will protect your feet from various weather conditions (cold, moisture, etc.). Make sure your shoes fit properly. If you have neuropathy (nerve damage), you may not notice that your shoes are too tight. Perform the footwear test described below. Footwear Test Use this simple test to see if your shoes fit correctly: Stand on a piece of paper. (Make sure you are standing and not sitting, because your foot changes shape when you stand.) Trace the outline of your foot. Trace the outline of your shoe. Compare the tracings: Is the shoe too narrow? Is your foot crammed into the shoe? The shoe should be at least 1/2 inch longer than your longest toe and as wide as your foot. Proper Shoe Choices The following types of shoes are best for people with diabetes Closed toes and heels Leather uppers without a seam inside At least 1/2 inch extra space at the end of your longest toe Inside of shoe should be soft with no rough areas Outer sole should be made of stiff material Shoes should be at least as wide as your feet Tips for Foot Care in Diabetes Don't wait to treat a minor foot problem if you have diabetes. Follow your health care provider's guidelines and first aid guidelines. Report foot injuries and infections to your health care provider immediately. Check water temperature with your elbow, not your foot. Do not use a heating pad on your feet. Do not cross your legs. Do not self-treat your corns, calluses, or other foot problems. Go to your health care provider or assistant customer service manager to treat these conditions. Follow-up and Disposition History Recorded Encounter Status:Closed by SMITHA WILSON DPM on 07/03/17 PROGRESS Observed: 07/03/2017 Status: COMPLETED Source: [place] 1:19 PM [facility] REPOSITORY O ID: [id number] Author: Smitha Wilson Service: (none) Author Type: Physician Type: Progress Notes Filed: 07/03/2017 10:21 PM Note Text: Initial Office Visit Subjective: This 57 year old female presents to clinic for diabetic foot check. Patient has the following complaints: diabetic foot exam and painful bunion of right foot. Patient admits to being diabetic for 10 years now and states that their blood sugar was 165 mg/dL this AM. Patient + B/T/N in feet at this time. Patient + pain in legs when walking. Patient also complains of bunion to right foot. She states the foot bothers her off/on for the past year. She states that it will often hurt 2-3 days/week. She states she thinks that she may be developing bunion on left foot. Patient is not currently taking anything otc for pain. Patient does take norco for legs and back and that does help. No other pedal complaints at this time. No change in medications or medical history since last visit. PAIN EVALUATION 07/03/2017 Pain Score: 5 Pain Location: Foot-Right rt and left foot, rt and left knees Description: Aching;Dull Frequency: Continuous Hemoglobin A1C (%) Date Value 07/24/2016 6.7 04/24/2016 9.0 11/17/2015 6.3 05/22/2015 5.9 12/02/2014 5.7 PCP: Vincent Herbert MD PAST MEDICAL HISTORY Diagnosis Date - Abnormal glandular Papanicolaou smear of cervix 05/30/05 ABNL GLANDULAR PAP SMEAR CERVIX - Acute gastritis without mention of hemorrhage - Anxiety state, unspecified - Arrhythmia - Chronic cholecystitis - Chronic obstructive pulmonary disease (COPD) ([facility]) - Congestive heart failure (HCC) 10/03/2011 - Diabetes ([facility]) - diabetes II 2010 - Diaphragmatic hernia without mention of obstruction or gangrene - Dysthymic disorder Depression (non-psychotic) - Esophageal reflux - Essential hypertension, benign - Generalized OA - Localized osteoarthrosis not specified whether primary or secondary, lower leg - Major depressive disorder, recurrent episode - Mucous polyp of cervix 07/19/05 - Other and unspecified anterior pituitary hyperfunction 10/13/05 elevated prolactin level-was normal in 2011 - PMH - PAST MEDICAL HISTORY OF sleep apnea - PMH - PAST MEDICAL HISTORY OF sleep apnea - SVT (supraventricular tachycardia) (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 metFORMIN (GLUCOPHAGE) 500 mg tablet Take 1 tablet by mouth twice daily with meals. cephALEXin (KEFLEX) 500 mg capsule Take 1 capsule by mouth twice daily for 10 days. HYDROcodone-acetaminophen (NORCO) 5-325 mg per tablet TAKE ONE TABLET TWICE DAILY indomethacin (INDOCIN) 25 mg capsule Take 1 capsule by mouth twice daily with meals. Hold while on Ibuprofen (Patient taking differently: Take 25 mg by mouth twice daily with meals. ) glimepiride (AMARYL) 4 mg tablet Take 1 tablet by mouth daily with breakfast. baclofen (LIORESAL) 10 mg tablet Take 1 tablet by mouth twice daily. linagliptin (TRADJENTA) 5 mg tab Take 1 tablet by mouth once daily. spironolactone (ALDACTONE) 25 mg tablet Take 1 tablet by mouth once daily. ranitidine (ZANTAC) 150 mg tablet Take 1 tablet by mouth twice daily. furosemide (LASIX) 20 mg tablet Take 1 tablet by mouth once daily. DULoxetine (CYMBALTA) 60 mg capsule Take 1 capsule by mouth once daily. Blood-Glucose Meter monitoring kit Glucose Meter of Choice - Kit - Dx: Type 2 DM - Controlled E11.9 Use twice daily as directed blood sugar diagnostic (BLOOD GLUCOSE TEST) test strip Test blood sugar(s) 2 times daily. Dx: Type 2 DM - Controlled E11.9 Insulin: No TRUETEST TEST STRIPS test strip TEST twice a day lancets (TRUEPLUS LANCETS) 30 gauge misc Test twice daily Dx: 250.02 primidone (MYSOLINE) 50 mg tablet TAKE ONE TABLET ONCE DAILY AT BEDTIME traZODone (DESYREL) 50 mg tablet Take 0.5 tablets by mouth daily at bedtime. ARIPiprazole (ABILIFY) 10 mg tablet Take 1 tablet by mouth once daily. nystatin (MYCOSTATIN) cream Apply 1 application to affected area twice daily. potassium chloride ER (K-DUR, KLOR-CON) 10 mEq tablet Take 1 tablet by mouth once daily. nitroglycerin sublingual (NITROQUICK) 0.4 mg SL tablet Dissolve 1 tablet under the tongue as needed. FOR CHEST PAIN. IF NO RELIEF CALL 911 polyethylene glycol 3350 (MIRALAX, GLYCOLAX) 17 gram/dose powder Take 17 g by mouth once daily. cetirizine 5 mg tablet Take 10 mg by mouth once daily. aspirin, enteric coated (ECOTRIN LOW STRENGTH) 81 mg EC tablet Take 1 tablet by mouth once daily. No current facility-administered medications for this visit. ALLERGIES Allergen Reactions - Lyrica [Pregabalin] Anaphylaxis Not sure if accurate. Can take gabapentin. Patient is unsure of reaction. - Accupril [Quinapril* Intolerance dizziness - Amlodipine Swelling Leg edema - Atenolol Swelling - Effexor [Venlafaxin* swelling high blood pressure - Januvia [Sitaglipti* GI Upset, Other: See Comments Patient states she couldn't eat - Metoprolol Swelling - Mobic [Meloxicam] GI Upset - Prozac [Fluoxetine * Intolerance tremor - Risperidone Mental Status Change - Seroquel [Quetiapin* hypertension,swelling - Vioxx [Rofecoxib] GI Upset - Wellbutrin [Bupropi* Intolerance nightmares PAST SURGICAL HISTORY Procedure Laterality Date - CERVICAL BIOPSY OR EXCISION 07/19/05 endocervical polyp - COLONOSCOP W/ OR W/O [facility] SPEC 01/09/2012 Colonoscopy repeat 10 years - COLPOSCOPY (VAGINOSCOPY) Colposcopy - EGD W/O [facility] SPECIMEN W/BX 01/16/07 - EGD W/O OR W/BRUSH/WASH 01/09/2012 EGD - HYSTEROSCOPY DX 12/17/2014 [facility] - LAP CHOLECYSTECT/CHOLANGIOGRAPHY 05/15/08 FAMILY HISTORY Problem Relation Age of Onset - Hypertension Mother - Heart Mother concha stroke - Diabetes Mother - Stroke Mother Massive- - Arthritis Mother Osteoarthritis - Hypertension Father - COPD Father - Hypertension Sister 2 - Hypertension Brother 3 - Heart Brother triple bypass at 48 - Heart Maternal Aunt - Heart Maternal Uncle - Diabetes Brother 3 Brother's with diabetes - Diabetes Sister - Arthritis Sister - Arthritis Brother - Arthritis Brother - Arthritis Brother Social History Marital status: Single Spouse name: Years of education: 9 Number of children: 0 Occupational 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 Social History Main Topics Smoking status: Former Smoker Packs/day: 1.00 Years: 15.00 Types: Cigarettes Quit date: 12/20/1994 Smokeless tobacco: Never Used Alcohol use: No Drug use: No Sexual activity: No REVIEW OF SYSTEMS GENERAL: Negative for Malaise, significant weight loss, fever RESPIRATORY: Negative for cough, wheezing and shortness of breath CARDIOVASCULAR: Negative for chest pain, leg swelling and palpitations GI: Negative for abdominal discomfort, blood in stools or black stools and change in bowel habits : Negative for dysuria, frequency and incontinence MUSCULOSKELETAL: Negative for joint pain or swelling, back pain, and muscle pain. SKIN: Negative for lesions, rash, and itching. HEMATOLOGY/LYMPHOLOGY Negative for prolonged bleeding, bruising easily, and swollen nodes. ENDOCRINE: Negative for cold or heat intolerance, polyuria, polydipsia and goiter. NEURO: negative The remainder of the review of systems is noncontributory. Objective: Patient presents to clinic ambulating in [facility] Constitutional: Pt is a well developed 57 year old female who is alert, oriented, cooperative and in no apparent distress. Eyes: Following during examination. No redness or drainage. Respiratory: RR normal and nonlabored. Even breathing. No evidence of distress. Psychology: Patient is engaged during conversation. Normal affect and mood. Does not appear depressed or anxious. Vasc: DP and PT pulses are palpable bilateral. CFT is less than 5 seconds bilateral. Skin temperature is warm to warm proximal to distal bilateral. There is moderate edema or varicosities noted. Hair growth present. Neuro: Protective sensation is intact to the foot and toes when tested with the 5.07 SWM bilateral. Vibratory sensation is decreased at the hallux bilateral. + Significant neurological defecits. Derm: Inspection and palpation performed. Nails 1-5 b/l are normal in length and thickness. Skin is of normal turgor and texture. Hyperkeratosis noted to b/l hallux. NO ulcerations, scars, verruca or other lesions noted. Ortho: Ankle joint DF is full with the knee extended and full with knee flexed. No pain or crepitus noted. STJ, MTJ ROM are full and free of pain or crepitus. Muscle strength is 5/5 for dorsiflexors, plantarflexors, inverters, everters. Digital deformities include mild bunion b/l. Assessment: (M20.11) Acquired hallux valgus of right foot (primary encounter diagnosis) (L85.9) Hyperkeratosi (E11.49) Other diabetic neurological complication associated with type 2 diabetes mellitus (HCC) Plan: 1. Patient was seen and evaluated. 2. Patient was instructed on the continued importance of diabetic foot care along with proper diet and keeping their blood sugar under control to prevent complications. Instructions given both oral and written. 3. Discussed bunion of b/l foot. Recommend baseline xrays. Discussed wider shoes, padding, diabetic shoes ordered. 4. Callus filed to b/l hallux. 5. f/u in 3 months or sooner if problems develop. Smitha Wilson DPM PROGRESS Observed: 06/29/2017 Status: COMPLETED Source: [place] 2:45 PM [facility] [place] REPOSITORY [facility] ID: [id number] Author: Vincent Herbert Service: (none) Author Type: Physician Type: Progress Notes Filed: 06/29/2017 3:10 PM Note Text: Patient presents with: Recheck: had glucose in urine from urgent care HPI: Patient presents today for office visit for follow up. Had changed practices but is now returning. She was seen at urgent care recently for uti and found to have glucose in her urine, however, she has known dm and her most recent hba1c in May was 7.3. Sugars have been slightly higher recently. Her diet is not as good. She has had some issues in the past with glucophage but is tolerating once a day. Is willing to increase to twice a day. uti is better. No fever or chills. Emotionally is doing well. Pain is terrible but stable. Unsure if pituitary has been tested recently. No chest pain or increased shortness of breath. No edema. 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 Wears shoes due to neuropathy. Does have a bunion. Still seeing Dr. Pacheco-pain Dr. Myles-sleep Dr. Hare-depression Wants to switch back to Dr. Elizondo for cardiology. MEDICATIONS: Current Outpatient Prescriptions: metFORMIN (GLUCOPHAGE) 500 mg tablet Take 500 mg by mouth once daily. cephALEXin (KEFLEX) 500 mg capsule Take 1 capsule by mouth twice daily for 10 days. HYDROcodone-acetaminophen (NORCO) 5-325 mg per tablet TAKE ONE TABLET TWICE DAILY gabapentin (NEURONTIN) 300 mg capsule TAKE ONE CAPSULE ONCE DAILY AT BEDTIME (Patient taking differently: TAKE ONE CAPSULE twice daily) indomethacin (INDOCIN) 25 mg capsule Take 1 capsule by mouth twice daily with meals. Hold while on Ibuprofen (Patient taking differently: Take 25 mg by mouth twice daily with meals. ) glimepiride (AMARYL) 4 mg tablet Take 1 tablet by mouth daily with breakfast. baclofen (LIORESAL) 10 mg tablet Take 1 tablet by mouth twice daily. linagliptin (TRADJENTA) 5 mg tab Take 1 tablet by mouth once daily. spironolactone (ALDACTONE) 25 mg tablet Take 1 tablet by mouth once daily. ranitidine (ZANTAC) 150 mg tablet Take 1 tablet by mouth twice daily. furosemide (LASIX) 20 mg tablet Take 1 tablet by mouth once daily. DULoxetine (CYMBALTA) 60 mg capsule Take 1 capsule by mouth once daily. primidone (MYSOLINE) 50 mg tablet TAKE ONE TABLET ONCE DAILY AT BEDTIME traZODone (DESYREL) 50 mg tablet Take 0.5 tablets by mouth daily at bedtime. ARIPiprazole (ABILIFY) 10 mg tablet Take 1 tablet by mouth once daily. potassium chloride ER (K-DUR, KLOR-CON) 10 mEq tablet Take 1 tablet by mouth once daily. nitroglycerin sublingual (NITROQUICK) 0.4 mg SL tablet Dissolve 1 tablet under the tongue as needed. FOR CHEST PAIN. IF NO RELIEF CALL 911 cetirizine 5 mg tablet Take 10 mg by mouth once daily. aspirin, enteric coated (ECOTRIN LOW STRENGTH) 81 mg EC tablet Take 1 tablet by mouth once daily. clindamycin (CLEOCIN) 300 mg capsule Take 1 capsule by mouth three times daily. WITH FOOD lactobacillus rhamnosus (CULTURELLE) 15 billion cell capsule Take 1 capsule by mouth once daily. Blood-Glucose Meter monitoring kit Glucose Meter of Choice - Kit - Dx: Type 2 DM - Controlled E11.9 Use twice daily as directed blood sugar diagnostic (BLOOD GLUCOSE TEST) test strip Test blood sugar(s) 2 times daily. Dx: Type 2 DM - Controlled E11.9 Insulin: No TRUETEST TEST STRIPS test strip TEST twice a day lancets (TRUEPLUS LANCETS) 30 gauge misc Test twice daily Dx: 250.02 nystatin (MYCOSTATIN) cream Apply 1 application to affected area twice daily. polyethylene glycol 3350 (MIRALAX, GLYCOLAX) 17 gram/dose powder Take 17 g by mouth once daily. No current facility-administered medications for this visit. ALLERGIES: ALLERGIES Allergen Reactions - Lyrica [Pregabalin] Anaphylaxis Not sure if accurate. Can take gabapentin. Patient is unsure of reaction. - Accupril [Quinapril* Intolerance dizziness - Amlodipine Swelling Leg edema - Atenolol Swelling - Effexor [Venlafaxin* swelling high blood pressure - Januvia [Sitaglipti* GI Upset, Other: See Comments Patient states she couldn't eat - Metoprolol Swelling - Mobic [Meloxicam] GI Upset - Prozac [Fluoxetine * Intolerance tremor - Risperidone Mental Status Change - Seroquel [Quetiapin* hypertension,swelling - Vioxx [Rofecoxib] GI Upset - Wellbutrin [Bupropi* Intolerance nightmares PAST MEDICAL HISTORY Diagnosis Date - Abnormal glandular Papanicolaou smear of cervix 05/30/05 ABNL GLANDULAR PAP SMEAR CERVIX - Acute gastritis without mention of hemorrhage - Anxiety state, unspecified - Arrhythmia - Chronic cholecystitis - Chronic obstructive pulmonary disease (COPD) ([facility]) - Congestive heart failure (HCC) 10/03/2011 - Diabetes (HCC) - diabetes II 2010 - Diaphragmatic hernia without mention of obstruction or gangrene - Dysthymic disorder Depression (non-psychotic) - Esophageal reflux - Essential hypertension, benign - Generalized OA - Localized osteoarthrosis not specified whether primary or secondary, lower leg - Major depressive disorder, recurrent episode - Mucous polyp of cervix 07/19/05 - Other and unspecified anterior pituitary hyperfunction 10/13/05 elevated prolactin level-was normal in 2012 - PMH - PAST MEDICAL HISTORY OF sleep apnea - PMH - PAST MEDICAL HISTORY OF sleep apnea - SVT (supraventricular tachycardia) (HCC) - 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 PAST SURGICAL HISTORY Procedure Laterality Date - CERVICAL BIOPSY OR EXCISION 07/19/05 endocervical polyp - COLONOSCOP W/ OR W/O [facility] SPEC 01/09/2012 Colonoscopy repeat 10 years - COLPOSCOPY (VAGINOSCOPY) Colposcopy - EGD W/O [facility] SPECIMEN W/BX 01/16/07 - EGD W/O OR W/BRUSH/WASH 01/09/2012 EGD - HYSTEROSCOPY DX 12/17/2014 [facility] - LAP CHOLECYSTECT/CHOLANGIOGRAPHY 05/15/08 FAMILY HISTORY Problem Relation Age of Onset - Hypertension Mother - Hypertension Father - Hypertension Sister 2 - Hypertension Brother 3 - Heart Mother concha stroke - Heart Brother triple bypass at 48 - Heart Maternal Aunt - Heart Maternal Uncle - Diabetes Mother - Diabetes Brother 3 Brother's with diabetes - COPD Father - Diabetes Sister - Stroke Mother Massive- - Arthritis Mother Osteoarthritis - Arthritis Sister - Arthritis Brother - Arthritis Brother - Arthritis Brother Social History Marital status: Single Spouse name: Years of education: 9 Number of children: 0 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 REVIEW OF SYSTEMS All other reviewed and negative other than HPI. HEALTH MAINTENANCE: Reviewed health maintenance issues today and recommended the following in detail. DIABETIC FOOT EXAM -does wear diabetic shoes. DILATED RETINAL EXAM-has been over a year. Recommended. URINE ALBUMIN CREATININE RATIO due on 08/09/2016 MAMMOGRAM -declines HBA1C due on 01/23/2017 LDL due on 04/24/2017 VITALS: BP 136/92 Pulse 80 Resp 14 Wt (!) 179.6 kg (396 lb) LMP 12/11/2008 BMI 74.82 kg/m? Last 4 Encounter Wt Readings: Date: Wt: 06/29/2017 179.6 kg (396 lb) 06/25/2017 181 kg (399 lb) 04/10/2016 175.1 kg (386 lb) 12/15/2015 176.6 kg (389 lb 6.4 oz) PHYSICAL EXAMINATION: General appearance: Well appearing, alert, in no acute distress, well-hydrated, well nourished. Skin: Skin color, texture, turgor normal, no suspicious rashes or lesions Head: Normocephalic, no masses, lesions, tenderness or abnormalities Lungs: Lungs clear to auscultation. No wheezing, rhonchi, rales Heart: RRR without murmur, gallop, or rubs. No ectopy Abdomen: Normal abdominal exam, Abdomen soft, non-tender. Bowel sounds normal. No masses, organomegaly Extremities: No deformities, no change in chronic edema, skin discoloration, clubbing or cyanosis. Good capillary refill. ASSESSMENT/PLAN: 1. Type 2 diabetes mellitus with peripheral neuropathy (HCC) - ICD9: 250.60, 357.2, ICD10: E11.42 (primary diagnosis) - work on diet. Increase metformin to bid. Call if gi issues resume while on it. Call sugars in two weeks. - ALBUMIN RANDOM URINE - GABAPENTIN 300 MG CAPSULE - COMP METABOLIC PANEL - LIPID PANEL BASIC - HGB A1C - CONSULT TO PODIATRY 2. Major depressive disorder, recurrent episode, moderate (HCC) - ICD9: 296.32, ICD10: F33.1 -continue to see psych 3. Obstructive sleep apnea - ICD9: 327.23, ICD10: G47.33 - continue treatment. 4. SVT (supraventricular tachycardia) (HCC) - ICD9: 427.89, ICD10: I47.1 - call if any issues. - CONSULT TO CARDIOLOGY 5. Morbid obesity (HCC) - ICD9: 278.01, ICD10: E66.01 - discussed weight loss 6. Essential hypertension, benign - ICD9: 401.1, ICD10: I10 - good control - Continue current medication(s) - Goal of BP <140/90 7. Anxiety state - ICD9: 300.00, ICD10: F41.1 - as above 8. DDD (degenerative disc disease), cervical - ICD9: 722.4, ICD10: M50.30 - per pain management. 9. Lumbar facet arthropathy (HCC) - ICD9: 721.3, ICD10: M46.96 10. Congestive heart failure, unspecified HF chronicity, unspecified heart failure type (HCC) - ICD9: 428.0, ICD10: I50.9 - CONSULT TO CARDIOLOGY 11. History of hyperprolactinemia - ICD9: V12.29, ICD10: Z86.39 - PROLACTIN BLD 12. Obesity, Class III, BMI 40-49.9 (morbid obesity) ([facility]) - ICD9: 278.01, ICD10: E66.01 Vincent Herbert MD CNOV Observed: 06/29/2017 Status: COMPLETED Source: [place] 2:00 PM [facility] REPOSITORY Office Visit (FAMPWS) KATHLEEN KHAN V ([id number]) 1960 F Date Time Provider Department 06/29/17 2:00 PM [facility] During your visit today, we recorded the following information about you: Pulse Respiration Blood pressure Weight 80/minute 14/minute 130/86 179.6 kg Vincent Herbert 06/29/2017 3:10 PM Signed Patient presents with: Recheck: had glucose in urine from urgent care HPI: Patient presents today for office visit for follow up. Had changed practices but is now returning. She was seen at urgent care recently for uti and found to have glucose in her urine, however, she has known dm and her most recent hba1c in May was 7.3. Sugars have been slightly higher recently. Her diet is not as good. She has had some issues in the past with glucophage but is tolerating once a day. Is willing to increase to twice a day. uti is better. No fever or chills. Emotionally is doing well. Pain is terrible but stable. Unsure if pituitary has been tested recently. No chest pain or increased shortness of breath. No edema. 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 Wears shoes due to neuropathy. Does have a bunion. Still seeing Dr. Mota Dr. Myles-sleep Dr. Hare-depression Wants to switch back to Dr. Elizondo for cardiology. MEDICATIONS: Current Outpatient Prescriptions: metFORMIN (GLUCOPHAGE) 500 mg tablet Take 500 mg by mouth once daily. cephALEXin (KEFLEX) 500 mg capsule Take 1 capsule by mouth twice daily for 10 days. HYDROcodone-acetaminophen (NORCO) 5-325 mg per tablet TAKE ONE TABLET TWICE DAILY gabapentin (NEURONTIN) 300 mg capsule TAKE ONE CAPSULE ONCE DAILY AT BEDTIME (Patient taking differently: TAKE ONE CAPSULE twice daily) indomethacin (INDOCIN) 25 mg capsule Take 1 capsule by mouth twice daily with meals. Hold while on Ibuprofen (Patient taking differently: Take 25 mg by mouth twice daily with meals. ) glimepiride (AMARYL) 4 mg tablet Take 1 tablet by mouth daily with breakfast. baclofen (LIORESAL) 10 mg tablet Take 1 tablet by mouth twice daily. linagliptin (TRADJENTA) 5 mg tab Take 1 tablet by mouth once daily. spironolactone (ALDACTONE) 25 mg tablet Take 1 tablet by mouth once daily. ranitidine (ZANTAC) 150 mg tablet Take 1 tablet by mouth twice daily. furosemide (LASIX) 20 mg tablet Take 1 tablet by mouth once daily. DULoxetine (CYMBALTA) 60 mg capsule Take 1 capsule by mouth once daily. primidone (MYSOLINE) 50 mg tablet TAKE ONE TABLET ONCE DAILY AT BEDTIME traZODone (DESYREL) 50 mg tablet Take 0.5 tablets by mouth daily at bedtime. ARIPiprazole (ABILIFY) 10 mg tablet Take 1 tablet by mouth once daily. potassium chloride ER (K-DUR, KLOR-CON) 10 mEq tablet Take 1 tablet by mouth once daily. nitroglycerin sublingual (NITROQUICK) 0.4 mg SL tablet Dissolve 1 tablet under the tongue as needed. FOR CHEST PAIN. IF NO RELIEF CALL 911 cetirizine 5 mg tablet Take 10 mg by mouth once daily. aspirin, enteric coated (ECOTRIN LOW STRENGTH) 81 mg EC tablet Take 1 tablet by mouth once daily. clindamycin (CLEOCIN) 300 mg capsule Take 1 capsule by mouth three times daily. WITH FOOD lactobacillus rhamnosus (CULTURELLE) 15 billion cell capsule Take 1 capsule by mouth once daily. Blood-Glucose Meter monitoring kit Glucose Meter of Choice - Kit - Dx: Type 2 DM - Controlled E11.9 Use twice daily as directed blood sugar diagnostic (BLOOD GLUCOSE TEST) test strip Test blood sugar(s) 2 times daily. Dx: Type 2 DM - Controlled E11.9 Insulin: No TRUETEST TEST STRIPS test strip TEST twice a day lancets (TRUEPLUS LANCETS) 30 gauge misc Test twice daily Dx: 250.02 nystatin (MYCOSTATIN) cream Apply 1 application to affected area twice daily. polyethylene glycol 3350 (MIRALAX, GLYCOLAX) 17 gram/dose powder Take 17 g by mouth once daily. No current facility-administered medications for this visit. ALLERGIES: ALLERGIES Allergen Reactions - Lyrica [Pregabalin] Anaphylaxis Not sure if accurate. Can take gabapentin. Patient is unsure of reaction. - Accupril [Quinapril* Intolerance dizziness - Amlodipine Swelling Leg edema - Atenolol Swelling - Effexor [Venlafaxin* swelling high blood pressure - Januvia [Sitaglipti* GI Upset, Other: See Comments Patient states she couldn't eat - Metoprolol Swelling - Mobic [Meloxicam] GI Upset - Prozac [Fluoxetine * Intolerance tremor - Risperidone Mental Status Change - Seroquel [Quetiapin* hypertension,swelling - Vioxx [Rofecoxib] GI Upset - Wellbutrin [Bupropi* Intolerance nightmares PAST MEDICAL HISTORY Diagnosis Date - Abnormal glandular Papanicolaou smear of cervix 05/30/05 ABNL GLANDULAR PAP SMEAR CERVIX - Acute gastritis without mention of hemorrhage - Anxiety state, unspecified - Arrhythmia - Chronic cholecystitis - Chronic obstructive pulmonary disease (COPD) ([facility]) - Congestive heart failure (HCC) 10/03/2011 - Diabetes ([facility]) - diabetes II 2010 - Diaphragmatic hernia without mention of obstruction or gangrene - Dysthymic disorder Depression (non-psychotic) - Esophageal reflux - Essential hypertension, benign - Generalized OA - Localized osteoarthrosis not specified whether primary or secondary, lower leg - Major depressive disorder, recurrent episode - Mucous polyp of cervix 07/19/05 - Other and unspecified anterior pituitary hyperfunction 10/13/05 elevated prolactin level-was normal in 2011 - PMH - PAST MEDICAL HISTORY OF sleep apnea - PMH - PAST MEDICAL HISTORY OF sleep apnea - SVT (supraventricular tachycardia) (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 PAST SURGICAL HISTORY Procedure Laterality Date - CERVICAL BIOPSY OR EXCISION 07/19/05 endocervical polyp - COLONOSCOP W/ OR W/O [facility] SPEC 01/09/2012 Colonoscopy repeat 10 years - COLPOSCOPY (VAGINOSCOPY) Colposcopy - EGD W/O [facility] SPECIMEN W/BX 01/16/07 - EGD W/O OR W/BRUSH/WASH 01/09/2012 EGD - HYSTEROSCOPY DX 12/17/2014 [facility] - LAP CHOLECYSTECT/CHOLANGIOGRAPHY 05/15/08 FAMILY HISTORY Problem Relation Age of Onset - Hypertension Mother - Hypertension Father - Hypertension Sister 2 - Hypertension Brother 3 - Heart Mother concha stroke - Heart Brother triple bypass at 48 - Heart Maternal Aunt - Heart Maternal Uncle - Diabetes Mother - Diabetes Brother 3 Brother's with diabetes - COPD Father - Diabetes Sister - Stroke Mother Massive- - Arthritis Mother Osteoarthritis - Arthritis Sister - Arthritis Brother - Arthritis Brother - Arthritis Brother Social History Marital status: Single Spouse name: Years of education: 9 Number of children: 0 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 REVIEW OF SYSTEMS All other reviewed and negative other than HPI. HEALTH MAINTENANCE: Reviewed health maintenance issues today and recommended the following in detail. DIABETIC FOOT EXAM -does wear diabetic shoes. DILATED RETINAL EXAM-has been over a year. Recommended. URINE ALBUMIN CREATININE RATIO due on 08/09/2016 MAMMOGRAM -declines HBA1C due on 01/23/2017 LDL due on 04/24/2017 VITALS: BP 136/92 Pulse 80 Resp 14 Wt (!) 179.6 kg (396 lb) LMP 12/11/2008 BMI 74.82 kg/m? Last 4 Encounter Wt Readings: Date: Wt: 06/29/2017 179.6 kg (396 lb) 06/25/2017 181 kg (399 lb) 04/10/2016 175.1 kg (386 lb) 12/15/2015 176.6 kg (389 lb 6.4 oz) PHYSICAL EXAMINATION: General appearance: Well appearing, alert, in no acute distress, well-hydrated, well nourished. Skin: Skin color, texture, turgor normal, no suspicious rashes or lesions Head: Normocephalic, no masses, lesions, tenderness or abnormalities Lungs: Lungs clear to auscultation. No wheezing, rhonchi, rales Heart: RRR without murmur, gallop, or rubs. No ectopy Abdomen: Normal abdominal exam, Abdomen soft, non-tender. Bowel sounds normal. No masses, organomegaly Extremities: No deformities, no change in chronic edema, skin discoloration, clubbing or cyanosis. Good capillary refill. ASSESSMENT/PLAN: 1. Type 2 diabetes mellitus with peripheral neuropathy (HCC) - ICD9: 250.60, 357.2, ICD10: E11.42 (primary diagnosis) - work on diet. Increase metformin to bid. Call if gi issues resume while on it. Call sugars in two weeks. - ALBUMIN RANDOM URINE - GABAPENTIN 300 MG CAPSULE - COMP METABOLIC PANEL - LIPID PANEL BASIC - HGB A1C - CONSULT TO PODIATRY 2. Major depressive disorder, recurrent episode, moderate (HCC) - ICD9: 296.32, ICD10: F33.1 -continue to see psych 3. Obstructive sleep apnea - ICD9: 327.23, ICD10: G47.33 - continue treatment. 4. SVT (supraventricular tachycardia) (HCC) - ICD9: 427.89, ICD10: I47.1 - call if any issues. - CONSULT TO CARDIOLOGY 5. Morbid obesity (HCC) - ICD9: 278.01, ICD10: E66.01 - discussed weight loss 6. Essential hypertension, benign - ICD9: 401.1, ICD10: I10 - good control - Continue current medication(s) - Goal of BP <140/90 7. Anxiety state - ICD9: 300.00, ICD10: F41.1 - as above 8. DDD (degenerative disc disease), cervical - ICD9: 722.4, ICD10: M50.30 - per pain management. 9. Lumbar facet arthropathy (HCC) - ICD9: 721.3, ICD10: M46.96 10. Congestive heart failure, unspecified HF chronicity, unspecified heart failure type (HCC) - ICD9: 428.0, ICD10: I50.9 - CONSULT TO CARDIOLOGY 11. History of hyperprolactinemia - ICD9: V12.29, ICD10: Z86.39 - PROLACTIN BLD 12. Obesity, Class III, BMI 40-49.9 (morbid obesity) (HCC) - ICD9: 278.01, ICD10: E66.01 Vincent Herbert MD Referring Provider: SELF [[id number]] Allergies As of Date: 06/29/2017 Noted Allergy Reaction LYRICA (PREGABALIN) 08/05/2012 10 - Anaphylaxis Comments: Not sure if accurate. Can take gabapentin. Patient is unsure of reaction. ACCUPRIL (QUINAPRIL HCL) 08/12/2005 5 - Intolerance Comments: dizziness AMLODIPINE 04/24/2008 7 - Swelling Comments: Leg edema ATENOLOL 09/29/2010 7 - Swelling EFFEXOR (VENLAFAXINE HCL) 09/22/2005 Comments: swelling high blood pressure JANUVIA (SITAGLIPTIN) 09/21/2011 8 - GI Upset 14 - Other: See Comments Comments: Patient states she couldn't eat METOPROLOL 09/21/2009 7 - Swelling MOBIC (MELOXICAM) 08/12/2005 8 - GI Upset PROZAC (FLUOXETINE HCL) 08/12/2005 5 - Intolerance Comments: tremor RISPERIDONE 12/22/2009 1 - Mental Status Change SEROQUEL (QUETIAPINE FUMARATE) 10/05/2006 Comments: hypertension,swelling VIOXX (ROFECOXIB) 08/12/2005 8 - GI Upset WELLBUTRIN (BUPROPION HCL) 08/12/2005 5 - Intolerance Comments: nightmares Date Reviewed: 06/29/2017 Reviewed by: Brittany Valencia LPN - Fully Assessed Reason for Visit: Recheck [92] Cmt: had glucose in urine from urgent care Reason For Visit History Recorded Primary Visit Diagnosis:Type 2 diabetes mellitus with peripheral neuropathy (HCC) [E11.42] Other Visit Diagnoses:Major depressive disorder, recurrent episode, moderate (HCC) [F33.1] Obstructive sleep apnea [G47.33] SVT (supraventricular tachycardia) (HCC) [I47.1] Morbid obesity (HCC) [E66.01] Essential hypertension, benign [I10] Anxiety state [F41.1] DDD (degenerative disc disease), cervical [M50.30] Lumbar facet arthropathy (HCC) [M46.96] Congestive heart failure, unspecified HF chronicity, unspecified heart failure type ([facility]) [I50.9] History of hyperprolactinemia [Z86.39] Obesity, Class III, BMI 40-49.9 (morbid obesity) ([facility]) [E66.01] Order(s):ALBUMIN RANDOM URINE [SQUALBR] Order #: [id number] FUTURE gabapentin (NEURONTIN) 300 mg capsuleTake 1 capsule by mouth twice daily for 30 days.Disp: Rfl: COMP METABOLIC PANEL [SQCMP] Order #: [id number] FUTURE LIPID PANEL BASIC [SQLIPB] Order #: [id number] FUTURE HGB A1C [RDZXK3N] Order #: [id number] FUTURE PROLACTIN BLD [SQPROL] Order #: [id number] FUTURE CONSULT TO PODIATRY [9034] Order #: [id number]: 1 CONSULT TO CARDIOLOGY [9004] Order #: [id number]: 1 metFORMIN (GLUCOPHAGE) 500 mg tabletTake 1 tablet by mouth twice daily with meals.Disp: 60 tabletRfl: 5 Prescriptions as of 06/29/2017 Sig: GABAPENTIN 300 MG CAPSULE Take 1 capsule by mouth twice* CEPHALEXIN 500 MG CAPSULE Take 1 capsule by mouth twice* HYDROCODONE 5 MG-ACETAMINOPHE* TAKE ONE TABLET TWICE DAILY INDOMETHACIN 25 MG CAPSULE Take 1 capsule by mouth twice* Patient taking differently: Take 25 mg by mouth twice padmini* GLIMEPIRIDE 4 MG TABLET Take 1 tablet by mouth daily * BACLOFEN 10 MG TABLET Take 1 tablet by mouth twice * LINAGLIPTIN 5 MG TABLET Take 1 tablet by mouth once d* SPIRONOLACTONE 25 MG TABLET Take 1 tablet by mouth once d* RANITIDINE 150 MG TABLET Take 1 tablet by mouth twice * FUROSEMIDE 20 MG TABLET Take 1 tablet by mouth once d* DULOXETINE 60 MG CAPSULE,JODI* Take 1 capsule by mouth once * PRIMIDONE 50 MG TABLET TAKE ONE TABLET ONCE DAILY AT* TRAZODONE 50 MG TABLET Take 0.5 tablets by mouth padmini* ARIPIPRAZOLE 10 MG TABLET Take 1 tablet by mouth once d* POTASSIUM CHLORIDE ER 10 MEQ * Take 1 tablet by mouth once d* NITROGLYCERIN 0.4 MG SUBLINGU* Dissolve 1 tablet under the t* CETIRIZINE 5 MG TABLET Take 10 mg by mouth once roseanna* ASPIRIN 81 MG TABLET,DELAYED * Take 1 tablet by mouth once d* METFORMIN 500 MG TABLET Take 1 tablet by mouth twice * BLOOD-GLUCOSE METER KIT Glucose Meter of Choice - Kit* BLOOD SUGAR DIAGNOSTIC STRIPS Test blood sugar(s) 2 times d* TRUETEST TEST STRIPS TEST twice a day LANCETS 30 GAUGE Test twice daily Dx: 250.02 NYSTATIN 100,000 UNIT/GRAM TO* Apply 1 application to affect* POLYETHYLENE GLYCOL 3350 17 G* Take 17 g by mouth once daily. Problem List As Of Date 06/29/2017 Noted Resolved Major depressive disorder, recurrent episode, u*INVALID FOR*11/24/2014 Priority: A More... Anxiety state [F41.1] INVALID FOR* BENIGN HYPERTENSION [I10] INVALID FOR* OSTEOARTHROS NOS-UNSPEC [M19.90] INVALID FOR*02/07/2007 ABNL GLANDULAR PAP SMEAR CERVIX [R87.619] INVALID FOR* HYPERPROLACTINEMIA [E22.9] INVALID FOR* IRREGULAR MENSTRUATION [N92.6] INVALID FOR* ESOPHAGEAL REFLUX [K21.9] INVALID FOR* ACUTE GASTRITIS W/O HEMORRHAGE [K29.00] INVALID FOR*02/07/2007 DIAPHRAGMATIC HERNIA [K44.9] INVALID FOR* Unspecified gastritis and gastroduodenitis with*INVALID FOR*07/24/2016 Localized osteoarthrosis not specified whether *INVALID FOR*07/24/2016 Priority: A More... Pain in joint, site unspecified [M25.50] INVALID FOR*07/24/2016 Routine general medical examination at a health*INVALID FOR*11/29/2011 Class: Chronic More... Routine gynecological examination [Z01.419] INVALID FOR*11/29/2011 Class: Chronic More... More... Morbid obesity [E66.01] INVALID FOR* Priority: Very Severe Hyperprolactinemia [E22.1] INVALID FOR*01/30/2012 Obstructive sleep apnea [G47.33] INVALID FOR* Priority: Severe More... Medication Side Effects [T88.7XXA] INVALID FOR* SVT (supraventricular tachycardia) [I47.1] Priority: A Type II or unspecified type diabetes mellitus w*INVALID FOR*04/10/2012 Priority: Moderate More... Congestive heart failure [I50.9] INVALID FOR* Spondylolisthesis [M43.10] INVALID FOR* Lumbar facet arthropathy [M46.96] INVALID FOR* DDD (degenerative disc disease), lumbar [M51.36]INVALID FOR* Diabetes mellitus [E11.9] INVALID FOR*11/24/2014 DDD (degenerative disc disease), cervical [M50.*INVALID FOR* DM (diabetes mellitus) (HCC) [E11.9] INVALID FOR* PMB (postmenopausal bleeding) [N95.0] INVALID FOR* Dysthymia [F34.1] INVALID FOR* Major depressive disorder, recurrent episode, m*INVALID FOR* More... Pain disorder with psychological factors [F45.4*INVALID FOR* Diffuse myofascial pain syndrome [M79.1] INVALID FOR* Bilateral primary osteoarthritis of knee [M17.0]INVALID FOR* Prescriptions ordered this encounter Disp Refills Start End GABAPENTIN 300 MG CAPSULE 06/29/2017 07/29/2017 Class: Med Update Route: ORAL Sig: Take 1 capsule by mouth twice daily for 30 days. METFORMIN 500 MG TABLET 60 t* 5 06/29/2017 06/29/2017 Route: ORAL Sig: Take 1 tablet by mouth twice daily with meals. METFORMIN 500 MG TABLET 60 t* 5 06/29/2017 Route: ORAL Sig: Take 1 tablet by mouth twice daily with meals. Medications Discontinued During This Encounter ibuprofen (MOTRIN) 800 mg tablet 40 t* 1 07/31/2016 06/29/2017 Route: ORAL Sig: Take 1 tablet by mouth every 8 hours as needed for Pain. Take with food. Disc: Discontinued by another Health Care Provider clindamycin (CLEOCIN) 300 mg capsule 30 c* 0 07/31/2016 06/29/2017 Route: ORAL Sig: Take 1 capsule by mouth three times daily. WITH FOOD Disc: Course of therapy completed lactobacillus rhamnosus (CULTURELLE)* 60 c* 0 02/26/2016 06/29/2017 Route: ORAL Sig: Take 1 capsule by mouth once daily. Disc: Course of therapy completed gabapentin (NEURONTIN) 300 mg capsule 30 c* 11 09/04/2016 06/29/2017 Sig: TAKE ONE CAPSULE ONCE DAILY AT BEDTIME Patient taking differently: TAKE ONE CAPSULE twice daily Disc: Reason for discontinue is not on file. metFORMIN (GLUCOPHAGE) 500 mg tablet 06/29/2017 Class: Historical Med Route: ORAL Sig: Take 500 mg by mouth once daily. Disc: Reason for discontinue is not on file. metFORMIN (GLUCOPHAGE) 500 mg tablet 60 t* 5 06/29/2017 06/29/2017 Route: ORAL Sig: Take 1 tablet by mouth twice daily with meals. Disc: Reason for discontinue is not on file. Follow-up and Disposition History Recorded Encounter Status:Closed by VINCENT HERBERT MD on 06/29/17 Observed: 06/25/2017 Status: F Source: [place] URINE CULTURE 11:30 PM [facility] REPOSITORY Sp. Request/Comment: - Specimen received in preservative Culture Result - 50,000 - <100,000 CFU/ml Escherichia coli --> ABNORMAL ALERT ORGANISM: Escherichia coli METHOD: Minimum inhibitory concentration(Vitek) Antibiotic Interp ANUP Status Ampicillin RESISTANT >=32 F Gentamicin SUSCEPTIBLE <=1 F Trimeth sulfameth RESISTANT >=320 F Cefazolin SUSCEPTIBLE <=4 F CLSI breakpoints for therapy of uncomplicated UTI's due to E.coli, K.pneumoniae, and P.mirabilis were applied and may be used to predict the activity of oral agents(cefaclor, cefdinir, cefpodoxime, cefp rozil, cefuroxime, cephalexin, loracarbef). Ciprofloxacin SUSCEPTIBLE <=0.25 F Nitrofurantoin SUSCEPTIBLE <=16 F Cefepime SUSCEPTIBLE <=1 F Piperacillin/Tazobac SUSCEPTIBLE <=4 F Ampicillin Sulbact RESISTANT >=32 F Ceftriaxone SUSCEPTIBLE <=1 F Meropenem SUSCEPTIBLE <=0.25 F Ertapenem SUSCEPTIBLE <=0.5 F Performed By: #### URCUL #### [facility] [address] [id number] PROGRESS Observed: 06/25/2017 Status: COMPLETED Source: [place] 4:46 PM [facility] REPOSITORY HNO ID: [id number] Author: Chantal Mancia Service: (none) Author Type: Nurse Practitioner Type: Progress Notes Filed: 06/25/2017 4:50 PM Note Text: Subjective HPI Pt presents with c/o 3 day hx dysuria and concentrated appearing urine. Denies fever, chills, back/flank/abd pain. HX diabetes. States BS have been elevated this past week. Review of Systems Constitutional: Negative for chills and fever. Gastrointestinal: Negative for abdominal pain, constipation, diarrhea, nausea and vomiting. Genitourinary: Positive for dysuria. Negative for flank pain, frequency, hematuria and urgency. Musculoskeletal: Negative for back pain and myalgias. Objective Physical Exam Constitutional: She is oriented to person, place, and time and well-developed, well-nourished, and in no distress. No distress. Abdominal: There is no CVA tenderness. Neurological: She is alert and oriented to person, place, and time. Skin: Skin is warm and dry. She is not diaphoretic. BP 122/86 Pulse 100 Temp 36.7 ?C (98 ?F) (Left Tympanic) Resp 22 Wt (!) 181 kg (399 lb) LMP 12/11/2008 BMI 75.39 kg/m? .Patient presents with: Dysuria PAST MEDICAL HISTORY Diagnosis Date - Abnormal glandular Papanicolaou smear of cervix 05/30/05 ABNL GLANDULAR PAP SMEAR CERVIX - Acute gastritis without mention of hemorrhage - Anxiety state, unspecified - Arrhythmia - Chronic cholecystitis - Chronic obstructive pulmonary disease (COPD) ([facility]) - Congestive heart failure (HCC) 10/03/2011 - Diabetes ([facility]) - diabetes II 2010 - Diaphragmatic hernia without mention of obstruction or gangrene - Dysthymic disorder Depression (non-psychotic) - Esophageal reflux - Esophageal reflux - Essential hypertension, benign - Essential hypertension, benign - Generalized OA - Localized osteoarthrosis not specified whether primary or secondary, lower leg - Major depressive disorder, recurrent episode - Mucous polyp of cervix 07/19/05 - Other and unspecified anterior pituitary hyperfunction 10/13/05 elevated prolactin level-was normal in 2011 - PMH - PAST MEDICAL HISTORY OF sleep apnea - PMH - PAST MEDICAL HISTORY OF sleep apnea - SVT (supraventricular tachycardia) (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 PAST SURGICAL HISTORY Procedure Laterality Date - CERVICAL BIOPSY OR EXCISION 07/19/05 endocervical polyp - COLONOSCOP W/ OR W/O BRSH SPEC 01/09/2012 Colonoscopy repeat 10 years - COLPOSCOPY (VAGINOSCOPY) Colposcopy - EGD W/O [facility] SPECIMEN W/BX 01/16/07 - EGD W/O OR W/BRUSH/WASH 01/09/2012 EGD - HYSTEROSCOPY DX 12/17/2014 [facility] - LAP CHOLECYSTECT/CHOLANGIOGRAPHY 05/15/08 ALLERGIES Lyrica [Pregabalin]; Accupril [Quinapril Hcl]; Amlodipine; Atenolol; Effexor [Venlafaxine Hcl]; Januvia [Sitagliptin]; Metoprolol; Mobic [Meloxicam]; Prozac [Fluoxetine Hcl]; Risperidone; Seroquel [Quetiapine Fumarate]; Vioxx [Rofecoxib]; Wellbutrin [Bupropion Hcl] MEDICATIONS HYDROcodone-acetaminophen (NORCO) 5-325 mg per tablet TAKE ONE TABLET TWICE DAILY gabapentin (NEURONTIN) 300 mg capsule TAKE ONE CAPSULE ONCE DAILY AT BEDTIME indomethacin (INDOCIN) 25 mg capsule Take 1 capsule by mouth twice daily with meals. Hold while on Ibuprofen glimepiride (AMARYL) 4 mg tablet Take 1 tablet by mouth daily with breakfast. baclofen (LIORESAL) 10 mg tablet Take 1 tablet by mouth twice daily. linagliptin (TRADJENTA) 5 mg tab Take 1 tablet by mouth once daily. spironolactone (ALDACTONE) 25 mg tablet Take 1 tablet by mouth once daily. ranitidine (ZANTAC) 150 mg tablet Take 1 tablet by mouth twice daily. furosemide (LASIX) 20 mg tablet Take 1 tablet by mouth once daily. DULoxetine (CYMBALTA) 60 mg capsule Take 1 capsule by mouth once daily. Blood-Glucose Meter monitoring kit Glucose Meter of Choice - Kit - Dx: Type 2 DM - Controlled E11.9 Use twice daily as directed blood sugar diagnostic (BLOOD GLUCOSE TEST) test strip Test blood sugar(s) 2 times daily. Dx: Type 2 DM - Controlled E11.9 Insulin: No TRUETEST TEST STRIPS test strip TEST twice a day lancets (TRUEPLUS LANCETS) 30 gauge misc Test twice daily Dx: 250.02 primidone (MYSOLINE) 50 mg tablet TAKE ONE TABLET ONCE DAILY AT BEDTIME traZODone (DESYREL) 50 mg tablet Take 0.5 tablets by mouth daily at bedtime. ARIPiprazole (ABILIFY) 10 mg tablet Take 1 tablet by mouth once daily. nystatin (MYCOSTATIN) cream Apply 1 application to affected area twice daily. potassium chloride ER (K-DUR, KLOR-CON) 10 mEq tablet Take 1 tablet by mouth once daily. nitroglycerin sublingual (NITROQUICK) 0.4 mg SL tablet Dissolve 1 tablet under the tongue as needed. FOR CHEST PAIN. IF NO RELIEF CALL 911 polyethylene glycol 3350 (MIRALAX, GLYCOLAX) 17 gram/dose powder Take 17 g by mouth once daily. cetirizine 5 mg tablet Take 5 mg by mouth once daily. aspirin, enteric coated (ECOTRIN LOW STRENGTH) 81 mg EC tablet Take 1 tablet by mouth once daily. phenazopyridine (PYRIDIUM) 100 mg tablet Take 1 tablet by mouth three times daily as needed for up to 2 days. clindamycin (CLEOCIN) 300 mg capsule Take 1 capsule by mouth three times daily. WITH FOOD ibuprofen (MOTRIN) 800 mg tablet Take 1 tablet by mouth every 8 hours as needed for Pain. Take with food. lactobacillus rhamnosus (CULTURELLE) 15 billion cell capsule Take 1 capsule by mouth once daily. FAMILY HISTORY Problem Relation Age of Onset - Hypertension Mother - Hypertension Father - Hypertension Sister 2 - Hypertension Brother 3 - Heart Mother concha stroke - Heart Brother triple bypass at 48 - Heart Maternal Aunt - Heart Maternal Uncle - Diabetes Mother - Diabetes Brother 3 Brother's with diabetes - COPD Father - Diabetes Sister - Stroke Mother Massive- - Arthritis Mother Osteoarthritis - Arthritis Sister - Arthritis Brother - Arthritis Brother - Arthritis Brother Social History Substance Use Topics - Smoking status: Former Smoker Packs/day: 1.00 Years: 15.00 Types: Cigarettes Quit date: 12/20/1994 - Smokeless tobacco: Never Used - Alcohol use No ASSESSMENT/PLAN: 1. Dysuria - ICD9: 788.1, ICD10: R30.0 (primary diagnosis) acute - UA positive for 2000 glucose - Send urine for culture - Patient education for prevention given - UA DIP B/O - URINE CULTURE - PHENAZOPYRIDINE 100 MG TABLET 2. Glucosuria - ICD9: 791.5, ICD10: R81 Encouraged to f/u with PCP. The patient is instructed to return or seek emergency treatment if symptoms become worse or with any acute change in condition. The patient verbalizes understanding and is in agreement with plan of care. Chantal Mancia CNP CNOV Observed: 06/25/2017 Status: COMPLETED Source: [place] 4:15 PM [facility] REPOSITORY Office Visit (WSTR) KATHLEEN KHAN V ([id number]) 1960 F Date Time Provider Department 06/25/17 4:15 PM [facility] During your visit today, we recorded the following information about you: Temperature Pulse Respiration Blood pressure 98 degrees 100/minute 22/minute 122/86 Weight 181 kg LloydChantal bowen 06/25/2017 4:50 PM Signed Subjective HPI Pt presents with c/o 3 day hx dysuria and concentrated appearing urine. Denies fever, chills, back/flank/abd pain. HX diabetes. States BS have been elevated this past week. Review of Systems Constitutional: Negative for chills and fever. Gastrointestinal: Negative for abdominal pain, constipation, diarrhea, nausea and vomiting. Genitourinary: Positive for dysuria. Negative for flank pain, frequency, hematuria and urgency. Musculoskeletal: Negative for back pain and myalgias. Objective Physical Exam Constitutional: She is oriented to person, place, and time and well-developed, well-nourished, and in no distress. No distress. Abdominal: There is no CVA tenderness. Neurological: She is alert and oriented to person, place, and time. Skin: Skin is warm and dry. She is not diaphoretic. BP 122/86 Pulse 100 Temp 36.7 ?C (98 ?F) (Left Tympanic) Resp 22 Wt (!) 181 kg (399 lb) LMP 12/11/2008 BMI 75.39 kg/m? .Patient presents with: Dysuria PAST MEDICAL HISTORY Diagnosis Date - Abnormal glandular Papanicolaou smear of cervix 05/30/05 ABNL GLANDULAR PAP SMEAR CERVIX - Acute gastritis without mention of hemorrhage - Anxiety state, unspecified - Arrhythmia - Chronic cholecystitis - Chronic obstructive pulmonary disease (COPD) (HCC) - Congestive heart failure (HCC) 10/03/2011 - Diabetes (HCC) - diabetes II 2010 - Diaphragmatic hernia without mention of obstruction or gangrene - Dysthymic disorder Depression (non-psychotic) - Esophageal reflux - Esophageal reflux - Essential hypertension, benign - Essential hypertension, benign - Generalized OA - Localized osteoarthrosis not specified whether primary or secondary, lower leg - Major depressive disorder, recurrent episode - Mucous polyp of cervix 07/19/05 - Other and unspecified anterior pituitary hyperfunction 10/13/05 elevated prolactin level-was normal in 2012 - PMH - PAST MEDICAL HISTORY OF sleep apnea - PMH - PAST MEDICAL HISTORY OF sleep apnea - SVT (supraventricular tachycardia) (HCC) - 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 PAST SURGICAL HISTORY Procedure Laterality Date - CERVICAL BIOPSY OR EXCISION 07/19/05 endocervical polyp - COLONOSCOP W/ OR W/O BRSH SPEC 01/09/2012 Colonoscopy repeat 10 years - COLPOSCOPY (VAGINOSCOPY) Colposcopy - EGD W/O [facility] SPECIMEN W/BX 01/16/07 - EGD W/O OR W/BRUSH/WASH 01/09/2012 EGD - HYSTEROSCOPY DX 12/17/2014 [facility] - LAP CHOLECYSTECT/CHOLANGIOGRAPHY 05/15/08 ALLERGIES Lyrica [Pregabalin]; Accupril [Quinapril Hcl]; Amlodipine; Atenolol; Effexor [Venlafaxine Hcl]; Januvia [Sitagliptin]; Metoprolol; Mobic [Meloxicam]; Prozac [Fluoxetine Hcl]; Risperidone; Seroquel [Quetiapine Fumarate]; Vioxx [Rofecoxib]; Wellbutrin [Bupropion Hcl] MEDICATIONS HYDROcodone-acetaminophen (NORCO) 5-325 mg per tablet TAKE ONE TABLET TWICE DAILY gabapentin (NEURONTIN) 300 mg capsule TAKE ONE CAPSULE ONCE DAILY AT BEDTIME indomethacin (INDOCIN) 25 mg capsule Take 1 capsule by mouth twice daily with meals. Hold while on Ibuprofen glimepiride (AMARYL) 4 mg tablet Take 1 tablet by mouth daily with breakfast. baclofen (LIORESAL) 10 mg tablet Take 1 tablet by mouth twice daily. linagliptin (TRADJENTA) 5 mg tab Take 1 tablet by mouth once daily. spironolactone (ALDACTONE) 25 mg tablet Take 1 tablet by mouth once daily. ranitidine (ZANTAC) 150 mg tablet Take 1 tablet by mouth twice daily. furosemide (LASIX) 20 mg tablet Take 1 tablet by mouth once daily. DULoxetine (CYMBALTA) 60 mg capsule Take 1 capsule by mouth once daily. Blood-Glucose Meter monitoring kit Glucose Meter of Choice - Kit - Dx: Type 2 DM - Controlled E11.9 Use twice daily as directed blood sugar diagnostic (BLOOD GLUCOSE TEST) test strip Test blood sugar(s) 2 times daily. Dx: Type 2 DM - Controlled E11.9 Insulin: No TRUETEST TEST STRIPS test strip TEST twice a day lancets (TRUEPLUS LANCETS) 30 gauge misc Test twice daily Dx: 250.02 primidone (MYSOLINE) 50 mg tablet TAKE ONE TABLET ONCE DAILY AT BEDTIME traZODone (DESYREL) 50 mg tablet Take 0.5 tablets by mouth daily at bedtime. ARIPiprazole (ABILIFY) 10 mg tablet Take 1 tablet by mouth once daily. nystatin (MYCOSTATIN) cream Apply 1 application to affected area twice daily. potassium chloride ER (K-DUR, KLOR-CON) 10 mEq tablet Take 1 tablet by mouth once daily. nitroglycerin sublingual (NITROQUICK) 0.4 mg SL tablet Dissolve 1 tablet under the tongue as needed. FOR CHEST PAIN. IF NO RELIEF CALL 911 polyethylene glycol 3350 (MIRALAX, GLYCOLAX) 17 gram/dose powder Take 17 g by mouth once daily. cetirizine 5 mg tablet Take 5 mg by mouth once daily. aspirin, enteric coated (ECOTRIN LOW STRENGTH) 81 mg EC tablet Take 1 tablet by mouth once daily. phenazopyridine (PYRIDIUM) 100 mg tablet Take 1 tablet by mouth three times daily as needed for up to 2 days. clindamycin (CLEOCIN) 300 mg capsule Take 1 capsule by mouth three times daily. WITH FOOD ibuprofen (MOTRIN) 800 mg tablet Take 1 tablet by mouth every 8 hours as needed for Pain. Take with food. lactobacillus rhamnosus (CULTURELLE) 15 billion cell capsule Take 1 capsule by mouth once daily. FAMILY HISTORY Problem Relation Age of Onset - Hypertension Mother - Hypertension Father - Hypertension Sister 2 - Hypertension Brother 3 - Heart Mother concha stroke - Heart Brother triple bypass at 48 - Heart Maternal Aunt - Heart Maternal Uncle - Diabetes Mother - Diabetes Brother 3 Brother's with diabetes - COPD Father - Diabetes Sister - Stroke Mother Massive- - Arthritis Mother Osteoarthritis - Arthritis Sister - Arthritis Brother - Arthritis Brother - Arthritis Brother Social History Substance Use Topics - Smoking status: Former Smoker Packs/day: 1.00 Years: 15.00 Types: Cigarettes Quit date: 12/20/1994 - Smokeless tobacco: Never Used - Alcohol use No ASSESSMENT/PLAN: 1. Dysuria - ICD9: 788.1, ICD10: R30.0 (primary diagnosis) acute - UA positive for 2000 glucose - Send urine for culture - Patient education for prevention given - UA DIP B/O - URINE CULTURE - PHENAZOPYRIDINE 100 MG TABLET 2. Glucosuria - ICD9: 791.5, ICD10: R81 Encouraged to f/u with PCP. The patient is instructed to return or seek emergency treatment if symptoms become worse or with any acute change in condition. The patient verbalizes understanding and is in agreement with plan of care. Chantal Mancia, PATSY Referring Provider: SELF [200] Allergies As of Date: 06/25/2017 Noted Allergy Reaction LYRICA (PREGABALIN) 08/05/2012 10 - Anaphylaxis Comments: Not sure if accurate. Can take gabapentin. Patient is unsure of reaction. ACCUPRIL (QUINAPRIL HCL) 08/12/2005 5 - Intolerance Comments: dizziness AMLODIPINE 04/24/2008 7 - Swelling Comments: Leg edema ATENOLOL 09/29/2010 7 - Swelling EFFEXOR (VENLAFAXINE HCL) 09/22/2005 Comments: swelling high blood pressure JANUVIA (SITAGLIPTIN) 09/21/2011 8 - GI Upset 14 - Other: See Comments Comments: Patient states she couldn't eat METOPROLOL 09/21/2009 7 - Swelling MOBIC (MELOXICAM) 08/12/2005 8 - GI Upset PROZAC (FLUOXETINE HCL) 08/12/2005 5 - Intolerance Comments: tremor RISPERIDONE 12/22/2009 1 - Mental Status Change SEROQUEL (QUETIAPINE FUMARATE) 10/05/2006 Comments: hypertension,swelling VIOXX (ROFECOXIB) 08/12/2005 8 - GI Upset WELLBUTRIN (BUPROPION HCL) 08/12/2005 5 - Intolerance Comments: nightmares Date Reviewed: 06/25/2017 Reviewed by: Vernell Wilson Ma - Fully Assessed Reason for Visit: Dysuria [1085] Primary Visit Diagnosis:Dysuria [R30.0] Other Visit Diagnosis:Glucosuria [R81] Order(s):UA DIP B/O [6192039] Order #: [id number] URINE CULTURE [SQURCUL] Order #: [id number] phenazopyridine (PYRIDIUM) 100 mg tabletTake 1 tablet by mouth three times daily as needed for up to 2 days.Disp: 6 tabletRfl: 0 Prescriptions as of 06/25/2017 Sig: HYDROCODONE 5 MG-ACETAMINOPHE* TAKE ONE TABLET TWICE DAILY GABAPENTIN 300 MG CAPSULE TAKE ONE CAPSULE ONCE DAILY A* INDOMETHACIN 25 MG CAPSULE Take 1 capsule by mouth twice* GLIMEPIRIDE 4 MG TABLET Take 1 tablet by mouth daily * BACLOFEN 10 MG TABLET Take 1 tablet by mouth twice * LINAGLIPTIN 5 MG TABLET Take 1 tablet by mouth once d* SPIRONOLACTONE 25 MG TABLET Take 1 tablet by mouth once d* RANITIDINE 150 MG TABLET Take 1 tablet by mouth twice * FUROSEMIDE 20 MG TABLET Take 1 tablet by mouth once d* DULOXETINE 60 MG CAPSULE,JODI* Take 1 capsule by mouth once * BLOOD-GLUCOSE METER KIT Glucose Meter of Choice - Kit* BLOOD SUGAR DIAGNOSTIC STRIPS Test blood sugar(s) 2 times d* TRUETEST TEST STRIPS TEST twice a day LANCETS 30 GAUGE Test twice daily Dx: 250.02 PRIMIDONE 50 MG TABLET TAKE ONE TABLET ONCE DAILY AT* TRAZODONE 50 MG TABLET Take 0.5 tablets by mouth padmini* ARIPIPRAZOLE 10 MG TABLET Take 1 tablet by mouth once d* NYSTATIN 100,000 UNIT/GRAM TO* Apply 1 application to affect* POTASSIUM CHLORIDE ER 10 MEQ * Take 1 tablet by mouth once d* NITROGLYCERIN 0.4 MG SUBLINGU* Dissolve 1 tablet under the t* POLYETHYLENE GLYCOL 3350 17 G* Take 17 g by mouth once daily. CETIRIZINE 5 MG TABLET Take 5 mg by mouth once daily. ASPIRIN 81 MG TABLET,DELAYED * Take 1 tablet by mouth once d* PHENAZOPYRIDINE 100 MG TABLET Take 1 tablet by mouth three * CLINDAMYCIN HCL 300 MG CAPSULE Take 1 capsule by mouth three* IBUPROFEN 800 MG TABLET Take 1 tablet by mouth every * LACTOBACILLUS RHAMNOSUS GG 15* Take 1 capsule by mouth once * Problem List As Of Date 06/25/2017 Noted Resolved Major depressive disorder, recurrent episode, u*INVALID FOR*11/24/2014 Priority: A More... Anxiety state [F41.1] INVALID FOR* BENIGN HYPERTENSION [I10] INVALID FOR* OSTEOARTHROS NOS-UNSPEC [M19.90] INVALID FOR*02/07/2007 ABNL GLANDULAR PAP SMEAR CERVIX [R87.619] INVALID FOR* HYPERPROLACTINEMIA [E22.9] INVALID FOR* IRREGULAR MENSTRUATION [N92.6] INVALID FOR* ESOPHAGEAL REFLUX [K21.9] INVALID FOR* ACUTE GASTRITIS W/O HEMORRHAGE [K29.00] INVALID FOR*02/07/2007 DIAPHRAGMATIC HERNIA [K44.9] INVALID FOR* Unspecified gastritis and gastroduodenitis with*INVALID FOR*07/24/2016 Localized osteoarthrosis not specified whether *INVALID FOR*07/24/2016 Priority: A More... Pain in joint, site unspecified [M25.50] INVALID FOR*07/24/2016 Routine general medical examination at a health*INVALID FOR*11/29/2011 Class: Chronic More... Routine gynecological examination [Z01.419] INVALID FOR*11/29/2011 Class: Chronic More... More... Morbid obesity [E66.01] INVALID FOR* Priority: Very Severe Hyperprolactinemia [E22.1] INVALID FOR*01/30/2012 Obstructive sleep apnea [G47.33] INVALID FOR* Priority: Severe More... Medication Side Effects [T88.7XXA] INVALID FOR* SVT (supraventricular tachycardia) [I47.1] Priority: A Type II or unspecified type diabetes mellitus w*INVALID FOR*04/10/2012 Priority: Moderate More... Congestive heart failure [I50.9] INVALID FOR* Spondylolisthesis [M43.10] INVALID FOR* Lumbar facet arthropathy [M46.96] INVALID FOR* DDD (degenerative disc disease), lumbar [M51.36]INVALID FOR* Diabetes mellitus [E11.9] INVALID FOR*11/24/2014 DDD (degenerative disc disease), cervical [M50.*INVALID FOR* DM (diabetes mellitus) (HCC) [E11.9] INVALID FOR* PMB (postmenopausal bleeding) [N95.0] INVALID FOR* Dysthymia [F34.1] INVALID FOR* Major depressive disorder, recurrent episode, m*INVALID FOR* Pain disorder with psychological factors [F45.4*INVALID FOR* Diffuse myofascial pain syndrome [M79.1] INVALID FOR* Bilateral primary osteoarthritis of knee [M17.0]INVALID FOR* Prescriptions ordered this encounter Disp Refills Start End PHENAZOPYRIDINE 100 MG TABLET 6 ta* 0 06/25/2017 06/27/2017 Route: ORAL Sig: Take 1 tablet by mouth three times daily as needed for up to 2 days. Encounter Status:Closed by CHANTAL MANCIA CNP on 06/25/17 ALK PHOS ISOENZYMES Collected: 05/24/2017 Status: F Source: cdream network 3:40 PM SYSTEM REPOSITORY TYPE CODE TESTS RESULT OUT OF REFERENCE UNITS RANGE LAB APISZ [facility] Alk Phos Isoenzymes Fract PERFORMED BY: Result Comment: [facility] LAB ALKPS 40-150 U/L Alkaline High Phosphatase 173 LAB AISOI Alk Phos Iso Interp see below Result Comment: Alk Phos Bone % = 25.6 % (Ref.range is 10.7-68.3) Bone Fraction = 44.3 U/L (Ref.range is 12.0-50.0) Alk Phos Liver % = 74.4 % (Ref.range is 26.0-86.2) Liver Fraction = 128.7 U/L (Ref.range is 15.0-66.0) Alk Phos Intestine % = 0.0 % (Ref.range is 0.0-24.2) Intestine Fraction = 0.0 U/L (Ref.range is 0.0-15.3) Performed By: #### APISF #### The performing lab is in the report. ALLERGIES ALLERGIES DATE TYPE / NAME / CODE REACTION SEVERITY SOURCE CODE 11/01/2017 DRUG ATORVASTATIN INTOLERANCE [place] [address] [address] [place] [id number]( Repository [facility]) 10/29/2017 Drug bupropion Unknown Unknown [place] Allergy/41 HCl/[id number](N Community [id number]) Repository 10/29/2017 Drug fluoxetine Unknown Unknown [place] Allergy/41 HCl/[id number]([facility] [id number]) Repository 10/29/2017 Drug quinapril Unknown Unknown [place] Allergy/41 HCl/[id number]([facility] Community [id number]) Repository 10/29/2017 Drug venlafaxine Unknown Unknown [place] Allergy/41 HCl/[id number]([facility] [id number]) Repository 10/29/2017 Drug quetiapine Unknown Unknown [place] Allergy/41 fumarate/[id number] Community [id number]( 0(RXNORM) [facility]) Repository 10/29/2017 Drug sitagliptin Unknown Unknown [place] Allergy/41 phosphate/T0091991 Community 4316370( 91(RXNORM) [facility]) Repository 10/29/2017 Drug atenolol/U40681689 Unknown Unknown [place] Allergy/41 5(RXNORM) Community 8846062([facility]) Repository 10/29/2017 Drug metoprolol/A780545 Unknown Unknown [place] Allergy/41 627(RXNORM) Community 2134038([facility]) Repository 10/29/2017 Drug amlodipine/Y714780 Unknown Unknown [place] Allergy/41 672(RXNORM) Community 1738249([facility]) Repository 10/29/2017 Drug risperidone/A14089 Unknown Unknown [place] Allergy/41 4392(RXNORM) Community 9205556([facility]) Repository 10/29/2017 Drug vancomycin/K628837 Rash Unknown [place] Allergy/41 866(RXNORM) Community 7923633([facility]) Repository 10/29/2017 Drug meloxicam/A9934665 Unknown Unknown [place] Allergy/41 72(RXNORM) Community 3935204([facility]) Repository 10/29/2017 Drug rofecoxib/A1614484 Unknown Unknown [place] Allergy/41 87(RXNORM) Community 7389353([facility]) Repository 10/29/2017 Drug pregabalin/Z424075 Unknown Unknown [place] Allergy/41 083(RXNORM) Community 0428450([facility]) Repository 08/10/2017 DRUG VANCOMYCIN ITCHING [place] [address] [place] 6357710( Repository [facility]) 08/05/2012 DRUG PREGABALIN ANAPHYLAXIS High [place] [address] [place] 7451594( Repository [facility]) 09/21/2011 DRUG SITAGLIPTIN GI UPSET [address] 3542746( Repository [facility]) 09/29/2010 DRUG ATENOLOL SWELLING [facility] INGREDI/[address] [place] 1320700(SN Repository [facility]) 12/22/2009 DRUG RISPERIDONE [facility] INGREDI/[address] [place] 5807361(SN Repository [facility]) 09/21/2009 DRUG METOPROLOL SWELLING [facility] INGREDI/[address] [place] 7808091(SN Repository [facility]) 04/24/2008 DRUG AMLODIPINE SWELLING [facility] INGREDI/[address] [place] 9788365(SN Repository [facility]) 10/05/2006 DRUG QUETIAPINE [facility] INGREDI/[address] [place] 3078871(SN Repository [facility]) 09/22/2005 DRUG VENLAFAXINE HCL [facility] INGREDI/[address] [place] 8824204(SN Repository [facility] CT) 08/12/2005 DRUG QUINAPRIL HCL INTOLERANCE [facility] INGREDI/[address] [place] 9356469(SN Repository [facility] CT) 08/12/2005 DRUG MELOXICAM GI UPSET [facility] INGREDI/[address] [place] 6295155(SN Repository [facility] CT) 08/12/2005 DRUG FLUOXETINE HCL INTOLERANCE [facility] INGREDI/[address] [place] 0058565(SN Repository [facility] CT) 08/12/2005 DRUG ROFECOXIB GI UPSET [facility] INGREDI/[address] [place] 5620020(SN Repository [facility] CT) 08/12/2005 DRUG BUPROPION HCL INTOLERANCE [facility] INGREDI/[address] [place] 0635680(SN Repository [facility] CT) NG/6440460 PREGABALIN [facility] 06([facility]) Repository NG/7035661 QUINAPRIL HCL [facility] 06([facility]) Repository NG/3377921 AMLODIPINE [facility] 06([facility]) Repository NG/0096204 ATENOLOL [facility] 06([facility]) Repository NG/7069528 VENLAFAXINE HCL [facility] 06([facility]) Repository NG/2300630 SITAGLIPTIN [facility] 06([facility]) Repository NG/1192144 METOPROLOL [facility] 06([facility]) Repository NG/1534582 MELOXICAM [facility] 06([facility]) Repository NG/0682871 FLUOXETINE HCL [facility] 06([facility]) Repository NG/3809049 RISPERIDONE [facility] 06([facility]) Repository NG/5220642 QUETIAPINE [facility] 06([facility]) Repository NG/3129700 ROFECOXIB [facility] 06([employer] [facility] CT) Repository NG/6643374 BUPROPION HCL [facility] 06([facility] CT) Repository ENCOUNTERS ENCOUNTERS ADMIT/DISCHARGE ACCOUNT NUMBER ADMITTING ENCOUNTER LOCATION SOURCE CLASS 03/14/2018/03/14/19 [id number] Ambulatory [address] Repository 03/12/2018/03/12/19 [id number] Ambulatory [address] Repository 03/06/2018 [id number] Sementi, Ambulatory BMSBuilding: [place] Jenn [facility] Repository 03/06/2018 [id number] [place], Ambulatory BMSBuilding: [place] Jenn [facility] Repository 03/06/2018 [id number] [place], Ambulatory BMSBuilding: [place] Jenn [facility]MS[facility] Repository 03/06/2018/03/08/19 [id number] Sementi, Inpatient Jose Alfredo Jose Alfred[place] 19 Jenn Encounter [facility] ding:[id number] Repository : VQ059Jya: 1 03/06/2018/03/07/19 [id number] Ambulatory [address] Repository 03/05/2018/03/05/19 [id number] Ambulatory [address] Repository 02/21/2018/02/21/19 [id number] Ambulatory [address] Repository 02/07/2018 [id number] Ambulatory [facility] ding:LAB Repository 02/06/2018/02/07/20 [id number] Ambulatory [address] Repository 01/30/2018/02/06/20 [id number] Ambulatory [address] Repository 01/30/2018/01/31/20 [id number] Ambulatory [address] Repository 01/26/2018/01/27/20 [id number] Ambulatory [address] Repository 01/17/2018/01/19/20 [id number] Ambulatory [address] Repository 01/16/2018/01/17/20 [id number] Ambulatory [address] Repository 01/09/2018/01/16/20 [id number] Ambulatory [address] [place] Repository 01/07/2018/01/09/20 [id number] Ambulatory [address] [place] Repository 01/02/2018/01/04/20 [id number] Ambulatory [address] Repository 12/26/2017/12/27/19 [id number] Ambulatory [address] [place] Repository 12/17/2017/12/19/19 [id number] Ambulatory [address] Repository 12/17/2017/12/18/19 [id number] Ambulatory [address] Repository 12/13/2017/12/14/19 [id number] Ambulatory [address] Repository 12/13/2017/12/25/19 [id number] Ambulatory [address] Repository 11/29/2017 [id number] [facility] 11/26/2017 [id number] [facility] ng[facility] 11/02/2017/11/06/19 [id number] Ambulatory [address] Repository 10/29/2017/10/31/19 [id number] White, Ambulatory [place] [address] ding:PCURoom Repository : NYO448Qen: 1 10/29/2017 [id number] Ambulatory BMSBuilding: Jose Alfredo [facility] Repository 10/29/2017 [id number] White, Ambulatory BMSBuilding: [place] [facility] Repository 10/29/2017 [id number] White, Ambulatory BMSBuilding: [place] [facility] Repository 10/29/2017/10/31/19 [id number] Ambulatory [address] Repository 10/24/2017/10/25/19 [id number] Ambulatory [address] Repository 10/21/2017 [id number] White, Ambulatory BMSBuilding: [place] [facility]MS[facility] Repository 10/21/2017 [id number] White, Ambulatory BMSBuilding: [place] BMS[facility] Repository 10/21/2017 [id number] White, Ambulatory BMSBuilding: [place] [facility] Repository 10/21/2017/10/24/19 [id number] White, Inpatient Jose Alfredo [place] 18 [place] Encounter [facility] ding:[id number] Repository : VX211Xhv: 1 10/20/2017/10/21/19 [id number] Ambulatory [address] Repository 10/20/2017/10/24/19 [id number] Ambulatory [address] Repository 09/24/2017/09/25/19 [id number] Ambulatory [address] Repository 09/17/2017/09/19/19 [id number] Ambulatory [address] Repository 09/14/2017/09/18/19 [id number] Ambulatory [address] Repository 09/09/2017 [id number] Isaias Falk Ambulatory BMSBuilding: [place] [facility] Repository 09/09/2017 [id number] Isaias Falk Ambulatory BMSBuilding: [place] [facility]MS[facility] Repository 09/09/2017/09/12/19 [id number] Isaias Falk Inpatient Jose Alfredo [place] 18 Encounter [facility] ding:[id number] Repository : CH116Tif: 1 09/09/2017 [id number] Isaias Falk Ambulatory BMSBuilding: [place] [facility] Repository 09/03/2017/09/04/19 [id number] Ambulatory [address] Repository 08/10/2017/08/11/19 [id number] Ambulatory [address] Repository 08/10/2017/08/15/19 [id number] Ambulatory [address] Repository 08/01/2017/08/04/19 [id number] Merlin, Inpatient [place] Jose Alfredo 18 Zane Encounter [facility] ding:[id number] Repository : YL332Wap: 1 08/01/2017 [id number] Merlin Ambulatory BMSBuilding: [place] Zane [facility] Repository 08/01/2017 [id number] Merlin Ambulatory BMSBuilding: [place] Zane [facility]MS[facility] Repository 08/01/2017 [id number] Ambulatory BMSBuilding: [place] [facility] Repository 07/30/2017/07/31/19 [id number] Ambulatory [address] [place] Repository 07/25/2017/07/26/19 [id number] Ambulatory [address] Repository 07/20/2017/07/21/19 [id number] Ambulatory [address] Repository 07/20/2017/07/21/19 [id number] Ambulatory [address] Repository 07/20/2017 [id number] Ambulatory [facility] MEDICAL Repository CENTERBuildi ng:CAGWS 07/03/2017/07/04/19 [id number] Ambulatory [address] Repository 07/03/2017/07/06/19 [id number] Ambulatory [address] Repository 06/29/2017/07/04/19 [id number] Ambulatory [address] Repository 06/25/2017/06/27/19 [id number] Ambulatory [address] Repository 06/05/2017 [id number] Ambulatory [facility] Repository 05/24/2017 [id number] Ambulatory [facility] Repository 05/21/2017 [id number] Ambulatory [facility] Repository 03/30/2017 [id number] Ambulatory [facility] Repository 03/19/2017 [id number] Ambulatory [facility] Repository PAYERS PAYERS ENCOUNTER GUARANTOR PAYER SUBSCRIBER SOURCE 03/06/2018 KATHLEEN V Primary KATHLEEN V [place] [id number] Insurance:[facility] MACEDOB: Community DRAPT *IN [facility] [id number] Number: Repository [address]Zhg: [phone] [id number] [phone] () Date:6827-34-40HLTA CLAIMS DEPTPO [address] [address]RB: 03/06/2018 Secondary NOT GIVENUNK [place] Insurance:SELF PAY [facility] Number: Effective Repository Date:2018-03-06 03/06/2018 KATHLEEN V Primary KATHLEEN V [place] [id number] Insurance:[facility] MACEDOB: Community DRAPT *IN [address] Number: Repository [address]Tmx: 330 [id number] [phone] () Date:4130-45-11LOSY CLAIMS DEPTPO [address], [place] [address]IO: 03/06/2018 Secondary NOT GIVENUNK [place] Insurance:SELF PAY [facility] Number: Effective Repository Date:2018-03-06 03/06/2018 KATHLEEN V Primary KATHLEEN V [place] [id number] Insurance:[facility] [facility] MACEDOB: Community DRAPT *IN [address] Number: Repository [address]Wsy: 330 [id number] [phone] () Date:0182-85-70AIOX CLAIMS DEPTPO [address] [place] [address]KH: 03/06/2018 Secondary NOT GIVENUNK [place] Insurance:SELF PAY [facility] Number: Effective Repository Date:2018-03-06 03/06/2018 KATHLEEN V Primary KATHLEEN V [place] [id number] Insurance:[facility] MACEDOB: Community DRAPT *IN [address] Number: Repository [id number]: 330 [id number] [phone] () Date:0817-07-41WUIG CLAIMS DEPTPO [address] [place] [address]MF: 03/06/2018 Secondary NOT GIVENUNK Jose [place]o Insurance:SELF PAY [facility] Number: Effective Repository Date:2018-03-06 02/07/2018 KATHLEEN V Primary KATHLEEN V [place] [id number] Insurance:[facility] [facility] MACEDOB: Community DRAPT *IN [address] Number: Repository [id number]: 330 [id number] [phone] (HP) Date:1941-78-28XGNP CLAIMS DEPTPO [address] [place] [address]CD: 02/07/2018 Secondary NOT GIVENUNK [place] Insurance:SELF PAY [facility] Number: Effective Repository Date:2018-02-07 11/29/2017 KATHLEEN V Primary KATHLEEN MACEUNK [facility] [id number] Insurance:[facility] APT [employer] DUALPolicy Repository [address] [place] [address] Number: [id number]: 330 [id number] [phone] (HP) Date:[address] [place] [address]FW: 11/26/2017 KATHLEEN V Primary KATHLEEN V [facility] [id number] Insurance:[facility] DR HERNANDEZ [employer] DUALPolicy Repository [address] [place] [address] Number: [id number]: 330 [id number] [phone] (HP) Date:[address] [place] [address] 47[address]PN: 10/29/2017 KATHLEEN V Primary KATHLEEN V [place] [id number] Insurance:[facility] MACEDOB: Community DRAPT *IN [address] Number: Repository [id number]: 330 [id number] [phone] (HP) Date:7375-53-07HXBH CLAIMS DEPTPO [address] [place] [address]UH: 10/29/2017 Secondary NOT GIVENUNK [place] Insurance:SELF PAY [facility] Number: Effective Repository Date:2017-10-29 10/29/2017 KATHLEEN V Primary KATHLEEN V [place]frde[place] [id number] Insurance:[facility] [facility] MACEDOB: Community DRAPT *IN [address] Number: Repository [id number]: 330 [id number] [phone] (HP) Date:8216-97-72KDLB [place]S DEPTPO [address] [address]AM: 10/29/2017 Secondary NOT GIVENUNK [place] Insurance:SELF PAY [facility] Number: Effective Repository Date:2017-10-29 10/29/2017 KATHLEEN V Primary KATHLEEN V [place] [id number] Insurance:[facility] [facility] MACEDOB: Community DRAPT *IN [address] Number: Repository [id number]: 330 [id number] [phone] (HP) Date:0403-19-36SJSF CLAIMS [address], [place] [address]JL: 10/29/2017 Secondary NOT GIVENUNK [place] Insurance:SELF PAY [facility] Number: Effective Repository Date:2017-10-29 10/29/2017 KATHLEEN V Primary KATHLEEN V [place] [id number] Insurance:[facility] MACEDOB: Community DRAPT *IN [address] Number: Repository [id number]: 330 [id number] [phone] (HP) Date:2620-82-52PMAP CLAIMS [address]PTPO [address], [place] [address]OP: 10/29/2017 Secondary NOT GIVENUNK [place] Insurance:SELF PAY [facility] Number: Effective Repository Date:2017-10-29 10/21/2017 KATHLEEN V Primary KATHLEEN V [place] [id number] Insurance:[facility] [facility] MACEDOB: Community DRAPT *IN [address] Number: Repository [id number]: 330 [id number] [phone] (HP) Date:4477-33-31VACX CLAIMS DEPTPO [address] [address]AS: 10/21/2017 Secondary NOT GIVENUNK [place] Insurance:SELF PAY Community [facility] Number: Effective Repository Date:2017-10-21 10/21/2017 KATHLEEN V Primary KATHLEEN V [place] [id number] Insurance:[facility] MACEDOB: Community DRAPT *IN [address] Number: Repository [id number]: 330 [id number] [phone] (HP) Date:0210-74-78EMZE CLAIMS DEPTPO [address] [place] [address]HD: 10/21/2017 Secondary NOT GIVENUNK [place] Insurance:SELF PAY [facility] Number: Effective Repository Date:2017-10-21 10/21/2017 KATHLEEN V Primary KATHLEEN V [place] [id number] Insurance:MYCARE CRSC MACEDOB: Community DRAPT *IN [address] Number: Repository [id number]: 330 [id number] [phone] () Date:[id number] CLAIMS DEPTPO [address] [place] [id number]: 10/21/2017 Secondary NOT GIVENUNK [place] Insurance:SELF PAY [facility] Number: Effective Repository Date:2017-10-21 10/21/2017 KATHLEEN V Primary KATHLEEN V [place] [id number] Insurance:MYCARE CRSC MACEDOB: Community DRAPT *IN [address], [place] Number: Repository [id number]: 330 [id number] [phone] (HP) Date:[id number] CLAIMS DEPTPO [address] [place] [id number]: 10/21/2017 Secondary NOT GIVENUNK [place] Insurance:SELF PAY [facility] Number: Effective Repository Date:2017-10-21 09/09/2017 KATHLEEN V Primary KATHLEEN V [place] [id number] Insurance:MYCARE CRSC MACEDOB: Community DRAPT *IN [address], [place] Number: Repository [id number]: 330 [id number] [phone] (HP) Date:[id number] CLAIMS [address]PT[address] [place] [id number]: 09/09/2017 Secondary NOT GIVENUNK [place] Insurance:SELF PAY [facility] Number: Effective Repository Date:2017-09-09 09/09/2017 KATHLEEN V Primary KATHLEEN V [place] [id number] Insurance:MYCARE CRSC MACEDOB: Community DRAPT *IN [address] Number: Repository [id number]: 330 [id number] [phone] (HP) Date:[id number] CLAIMS [address]PTPO [address] [place] [id number]: 09/09/2017 Secondary NOT GIVENUNK [place] Insurance:SELF PAY [facility] Number: Effective Repository Date:2017-09-09 09/09/2017 KATHLEEN V Primary KATHLEEN V [place] [id number] Insurance:MYCARE CRSC MACEDOB: Community DRAPT *IN [address] Number: Repository [id number]: 330 [id number] [phone] (HP) Date:[id number] CLAIMS DEPTPO [address] [place] [id number]: 09/09/2017 Secondary NOT GIVENUNK [place] Insurance:SELF PAY [facility] Number: Effective Repository Date:2017-09-09 09/09/2017 KATHLEEN V Primary KATHLEEN V [place] [id number] Insurance:MYCARE [employer]SC MACEDOB: Community DRAPT *IN [address] Number: Repository [id number]: 330 [id number] [phone] (HP) Date:[id number] CLAIMS DEPTPO [address] [place] [id number]: 09/09/2017 Secondary NOT GIVENUNK [place] Insurance:SELF PAY [facility] Number: Effective Repository Date:2017-09-09 08/01/2017 KATHLEEN V Primary KATHLEEN V [place] [id number] Insurance:MYCARE CRSC MACEDOB: Community DRAPT *IN [address] Number: Repository [id number]: 330 [id number] [phone] () Date:[id number] CLAIMS [address], [place] [address]BR: 08/01/2017 Secondary NOT GIVENUNK [place] Insurance:SELF PAY [facility] Number: Effective Repository Date:2017-08-01 08/01/2017 KATHLEEN V Primary KATHLEEN V [place] [id number] Insurance:MYCARE CRSC MACEDOB: Community DRAPT *IN [address] Number: Repository [id number]: [id number] [phone] Date:[id number] -3 () CLAIMS [address], [place] [address]DS: 08/01/2017 Secondary NOT GIVENUNK [place] Insurance:SELF PAY [facility] Number: Effective Repository Date:2017-08-01 08/01/2017 KATHLEEN V Primary KATHLEEN V [place] [id number] Insurance:MYCARE CRSC MACEDOB: Community DRAPT *IN [address] Number: Repository [id number]: [id number] [phone] Date:[id number] - () [place] [address] [address]RJ: 08/01/2017 Secondary NOT GIVENUNK [place] Insurance:SELF PAY [facility] Number: Effective Repository Date:2017-08-01 08/01/2017 KATHLEEN V Primary KATHLEEN V [place] [id number] Insurance:MYCARE [facility] MACEDOB: Community DRAPT *IN [facility] [id number] [address] Number: Repository [id number]: [id number] [phone] Date:[id number] -3 () CLAIMS DEPT[address] [place] [id number]: 08/01/2017 Secondary NOT GIVENUNK [place] Insurance:SELF PAY [facility] Number: Effective Repository Date:2017-08-01 07/20/2017 KATHLEEN MACE Primary KATHLEEN MACE [facility] VDOB: Insurance:[facility] VDOB: [facility] [id number] Repository [place] [address] MEDICAREPolicy [address], [place] Number: [id number]: 330 [id number] [phone] () Date: 06/05/2017 Kathleen V Primary Kathleen V [facility] MaceDOB: Insurance:CareSourceP MaceDOB: System olicy Number: [id number] Repository [place] Effective Date: [address] [place] [phone]: () 06/05/2017 Secondary Kathleen V [facility] Insurance:CareSourceP MaceDOB: System olicy Number: [id number] Repository Effective Date: 05/24/2017 Kathleen V Primary Kathleen V [facility] MaceDOB: Insurance:CareSourceP MaceDOB: System [place]licy Number: [id number] Repository [place] Effective Date: Drive [address] [place] [phone]: () 05/24/2017 Secondary Kathleen V [facility] Insurance:CareSourceP MaceDOB: System olicy Number: [id number] Repository Effective Date: 05/21/2017 Kathleen V Primary Kathleen V [facility] MaceDOB: Insurance:CareSourceP MaceDOB: System olicy Number: [id number] Repository [place] Effective Date: [address], [place] [address]Aij: () 05/21/2017 Secondary Kathleen V [facility] Insurance:CareSourceP MaceDOB: System olicy Number: [id number] Repository Effective Date: 03/30/2017 Kathleen V Primary Kathleen V [facility] MaceDOB: Insurance:CareSourceP MaceDOB: System olicy Number: [id number] Repository [place] Effective Date: [address], [place] [address]Flp: () 03/30/2017 Secondary Kathleen V [facility] Insurance:CareSourceP MaceDOB: System olicy Number: [id number] Repository Effective Date: 03/19/2017 Kathleen V Primary Kathleen V [facility] MaceDOB: Insurance:CareSourceP MaceDOB: System olicy Number: [id number] Repository [place] Effective Date: [address], [place] [address]Ohq: () 03/19/2017 Secondary Kathleen V [facility] Insurance:CareSourceP MaceDOB: System olicy Number: [id number] Repository Effective Date:
== END 2018-03-08 11:28 | disposition home health service (06) | DRG 603 ==
LOC: ED 18:10 → MS3 19:55
PROVIDERS: Admitting Provider Internal Medicine; Emergency Provider Emergency Medicine; Family Provider Family Medicine; PCP Family Medicine; Referring Provider Internal Medicine; Visit Provider Internal Medicine
DX: L03.317 Cellulitis of buttock (principal); Z68.45 Body mass index [BMI] 70 or greater, adult; I50.32 Chronic diastolic (congestive) heart failure; E66.01 Morbid (severe) obesity due to excess calories; G47.33 Obstructive sleep apnea (adult) (pediatric); Z79.4 Long term (current) use of insulin; R32 Unspecified urinary incontinence; L30.4 Erythema intertrigo; K21.9 Gastro-esophageal reflux disease without esophagitis; I27.20 Pulmonary hypertension, unspecified; E11.9 Type 2 diabetes mellitus without complications; I11.0 Hypertensive heart disease with heart failure; M54.17 Radiculopathy, lumbosacral region; G89.29 Other chronic pain; M54.9 Dorsalgia, unspecified; F32.9 Major depressive disorder, single episode, unspecified; F41.9 Anxiety disorder, unspecified
CPT/HCPCS: 36415; 71045; 80048; 80053; 81001; 82962; 83036; 83605; 84484; 85025; 85610; 85652; 85730; 86140; 87040; 87086; 87088; 99283; J7030; J7040; A4216

== ENCOUNTER 2018-06-13 18:55 | Inpatient (IN) | payer MEDICARE, SELFPAY ==
[2018-03-06 20:05] VITALS: BMI 70.2
[2018-06-13 18:56] VITALS: BP 118/48; PULSE 104; RESP 20; TEMP 38; O2SAT 95; BMI 68.4
--- NOTE | 2018-06-13 19:10 | RAD_ITS ---
STUDY: X-RAY CHEST REASON FOR EXAM: Female, 58 years old. Fever, cellulitis to both legs TECHNIQUE: Single AP portable view of the chest. COMPARISON: 03/06/2018. FINDINGS: The lungs are clear and expanded. There is no demonstrated pleural abnormality. Normal size heart. Normal mediastinum and erich. Normal visualized pulmonary arteries. Normal visualized aortic arch and descending thoracic aorta. Normal visualized thoracic spine. Normal visualized ribs, clavicles, and shoulders. There is no demonstrated abnormality of the visualized soft tissue structures of the upper abdomen. RAD/Chest 1 View (Portable) IMPRESSION: Normal x-ray examination of the chest. Electronically Signed: Jose Maria Maldonado MD at 19:27 EDT , Service support ,
--- NOTE | 2018-06-13 19:11 | ED.VISSUMM ---
- ER Visit Summary Date of Service: 06/13/18 Chief Complaint: [] Posterior thigh pain redness fever weakness history of diabetes cellulitis obesity History of Present Illness: The patient is a 58 F [] patient reports today she had severe pain to the posterior thighs the area felt quite irritated she had a fever generalized weakness she looked with a mirror and found her posterior thighs were red and irritated consistent with prior episodes of cellulitis her fever weakness continued and she she came to the emerge part for evaluation. No cough no abdominal pain normal urinary habits, she has had cellulitis in this area in the past related to possibly not moving as much due to body size, however indicates she is lost 70 pounds recently she is much more mobile than she is been despite trying to move she still gets episodes of cellulitis She has no history of cardiovascular disorder SD PE DVT or any GI ailments conditions or concerns Physical Examination: [] 100.4 Her vital signs otherwise unremarkable see those reports General, no distress resting comfortably is a very large woman requires assistance moving, she is resting cuffing the bed complaining of pain to her posterior thighs HEENT is generally unremarkable The neck is supple no adenopathy Cardiovascular, regular rate and rhythm Lungs, clear bilateral Abdomen, soft nontender Extremities, no clubbing cyanosis but there is some edema, when the patient is rolled there is obvious redness and irritation to the left posterior thigh greater than the right there is no fluctuance crepitance skin breakdown no odor no fluid no exudate there is no obvious involvement of her area she has full range of motion of her extremities her joints are uninvolved Neurologic, awake alert answering questions appropriately moving all 4 extremities Test Results: [] Emergency Department Course and Treatment: [] All the above screening labs IV fluids antibiotics Patient screening labs show white count of 13,000 the other labs are generally unremarkable she was reports, chest x-ray unremarkable as is UA, she received IV fluids IV antibiotics given all the above we have asked the hospital see her further management admission Treatment Plan: [] Disposition: [] Admit stable Impression: [] Cellulitis involving the posterior aspects of both thighs, fever This note was generated with SuiteLinq dictation software. It may contain incorrect words, spelling, and punctuation that were not noted in review of the chart prior to signing ED Disposition - Plan for ED Patient: Referrals: Vincent Negro MD [Primary Care Provider] -
[2018-06-13 19:35] LABS: Bacteria 0 SEEN /hpf (None Seen); Mucous, Urine 0 SEEN /hpf (<or=2+); White Blood Cells 0 SEEN /hpf (0-5)
[2018-06-13 19:45] LABS: Color, Urine Yellow (Yellow); Glucose, Dipstick Normal (Normal); Ketone-Dipstick 50 mg/dl (Negative); Leukocyte Esterase-Dipstick Negative /ul (Negative); Nitrite-Dipstick Negative (Negative); Occult Blood-Urine Negative /ul (Negative); Protein-Dipstick Negative (Negative); Specific Gravity, Urine 1.015 (1.002-1.030); Urine Bilirubin Dipstick Negative (Negative); Urine Clarity Clear (Clear); Urine Urobilinogen Normal (Normal)
[2018-06-13] MEDS: Acetaminophen 500 MG Tablet 1000 MG PO (19:47)
[2018-06-13] MEDS: morphine 8 MG/ML Syringe IV (19:48)
[2018-06-13] MEDS: Ondansetron 4 MG/2 ML Vial IV (19:48)
[2018-06-13 19:55] LABS: Red Blood Cells-Urine 0-5 SEEN /hpf (0-5); Squamous Epithelial Cells - UA 0-5 SEEN /hpf (5-10)
[2018-06-13 19:58] VITALS: BP 105/55; PULSE 89; RESP 16; TEMP 37.7; O2SAT 98
[2018-06-13 20:04] VITALS: RESP 18; O2SAT 80
[2018-06-13 20:42] LABS: Absolute Lymphocyte Count 0.45 X10^3/ul (0.83-4.51); Absolute Neutrophil Count 11.8 X10^3/uL (2.0-7.7); Basophil# 0.01 X10^3/uL; Basophil% 0.1 % (0-1); Eosinophil# 0.04 X10^3/uL; Eosinophils% 0.3 % (0-5); Hematocrit 37.6 % (37-47); Hemoglobin 12.6 g/dl (12.0-15.0); Lymphocyte # 0.45 X10^3/ul (4.0); Lymphocyte % 3.5 % (19-41); Mean Corp Hgb Conc 33.5 g/gl (32-36); Mean Corpuscular Hgb 29.5 pg (27.0-32.0); Mean Corpuscular Volume 88.1 fL (81-99); Mean Platelet Vol. 11.3 fl (6.2-12.0); Monocyte# 0.61 X10^3/uL; Monocyte% 4.7 % (0-10); Neutrophil # 11.77 X10^3/uL (2.7-7.7); Neutrophil % 91.2 % (47-70); Platelet Count 163 K/mm3 (150-450); RBC Distribution Width SD 41.6 fl (35.1-43.9); Red Blood Count 4.27 M/mm3 (4.2-5.4); White Blood Count 12.9 K/mm3 (4.4-11.0)
[2018-06-13 20:44] LABS: AST(SGOT) 15 U/L (15-37); Alanine Aminotransfer ALT/SGPT 19 U/L (13-56); Albumin, Serum 3.5 g/dL (3.2-5.0); Alkaline Phosphatase 102 U/L (45-117); Anion Gap 5 (5-15); BUN 19 mg/dL (7-18); BUN/Creat Ratio 31.4 RATIO (10-20); Bilirubin, Direct 0.16 mg/dL (0.00-0.30); Calcium,Total 9.6 mg/dL (8.5-10.1); Chloride 104 mmol/L (98-107); Differential Indicated SCAN CRITERIA MET; EST Glomerular Filtration Rate 108 mL/min (>60); Est Glom Filt Rate - Afr Amer 131 mL/min (>60); Globulin 2.9 g/dL (2.2-4.2); Glucose 165 mg/dL (74-106); Lactic Acid 1.8 mmol/L (0.4-2.0); Lipase 42 U/L (73-393); POSITIVE COUNT NO; POSITIVE DIFFERENTIAL YES; POSITIVE MORPHOLOGY YES; Potassium 3.9 mmol/L (3.5-5.1); Protein, Total 6.4 g/dL (6.4-8.2); Sodium Level 139 mmol/L (136-145)
[2018-06-13 21:07] VITALS: BP 107/58; PULSE 83; RESP 14; TEMP 37.3; O2SAT 97
[2018-06-13] MEDS: 0.9% Normal Saline 1,000 ML 125 ML IV (21:07)
[2018-06-13 21:16] LABS: Differential Comment SCANNED
--- NOTE | 2018-06-13 22:07 | HP.PCM_ITS ---
Problem List (1) Left leg cellulitis Status: Acute (2) Morbid obesity Status: Chronic (3) Hypertension Status: Chronic Qualifiers: History of Present Illness Date of Admission: 06/13/18 Chief Complaint: Weakness, left lower extremity redness, left lower extremity swelling The patient is a 58 year old F with PMH as below who presents with feeling unwell today. She states that she had not been feeling very well for the last several days so today she felt weak and chilled. She had noticed that she was having redness in her left lower extremity which was different than her normal, and she also noticed that her left lower extremity was swollen. She presented to the ER for further evaluation where she was found to have a leukocytosis as well as a mild temperature to 100.4. She is currently feeling much better after getting IV fluids and a dose of antibiotics. She denies any shortness of breath or chest pain. No lightheadedness or dizziness. Past Medical History Past Medical History (Chronic Problems): Chronic Problems Exertional dyspnea (Chronic) Pulmonary hypertension (Chronic) Anxiety and depression (Chronic) Heart failure (Chronic) Diabetes mellitus, type II (Chronic) Chronic back pain (Chronic) JEREMÍAS (obstructive sleep apnea) (Chronic) Lumbosacral neuritis (Chronic) Esophageal reflux (Chronic) Morbid obesity (Chronic) Hypertension (Chronic) Allergies vancomycin Allergy (Verified 10/29/17 12:44) Rash amlodipine Adverse Reaction (Verified 10/29/17 12:44) Unknown atenolol Adverse Reaction (Verified 10/29/17 12:44) Unknown bupropion HCl [From Wellbutrin] Adverse Reaction (Verified 10/29/17 12:44) Unknown fluoxetine HCl [From Prozac] Adverse Reaction (Verified 10/29/17 12:44) Unknown meloxicam [From Mobic] Adverse Reaction (Verified 10/29/17 12:44) Unknown metoprolol Adverse Reaction (Verified 10/29/17 12:44) Unknown pregabalin [From Lyrica] Adverse Reaction (Verified 10/29/17 12:44) Unknown quetiapine fumarate [From Seroquel] Adverse Reaction (Verified 10/29/17 12:44) Unknown quinapril HCl [From Accupril] Adverse Reaction (Verified 10/29/17 12:44) Unknown risperidone Adverse Reaction (Verified 10/29/17 12:44) Unknown rofecoxib [From Vioxx] Adverse Reaction (Verified 10/29/17 12:44) Unknown sitagliptin phosphate [From Januvia] Adverse Reaction (Verified 10/29/17 12:44) Unknown venlafaxine HCl [From Effexor] Adverse Reaction (Verified 10/29/17 12:44) Unknown Home Medications: Ambulatory Orders Medication Instructions Recorded Aspirin [Adult Low Dose Aspirin EC] 81 mg PO DAILY 12/02/14 Duloxetine HCl 60 mg PO DAILY 12/02/14 Ranitidine [Zantac] 150 mg PO BID 12/02/14 Spironolactone [Aldactone] 25 mg PO DAILY 12/02/14 Gabapentin [Neurontin] 300 mg PO BID 08/01/17 Primidone [Mysoline] 50 mg PO QHS 08/01/17 traZODone [Desyrel] 50 mg PO QHS 08/01/17 Nitroglycerin [Nitrostat] 0.4 mg SL PRN PRN 09/09/17 Aripiprazole [Abilify] 10 mg PO QHS 10/21/17 Furosemide [Lasix] 20 mg PO DAILY 10/29/17 Insulin Glargine,Hum.rec.anlog 10 unit SQ QHS 10/29/17 [Basaglar Kwikpen U-100] Nabumetone [Relafen] 500 mg PO DAILY 10/29/17 Baclofen 10 mg PO BID 03/06/18 Hydrocodone/Acetaminophen 1 tab PO TID PRN PRN 03/06/18 [Hydrocodone-Acetamin 5-325 mg] Polyethylene Glycol 3350 17 gm PO PRN PRN 03/06/18 Cephalexin [Keflex] 500 mg PO Q6 #20 capsule 03/08/18 Chlorhexidine Gluc 2% Cloth 1 each TOPICAL DAILY #5 pack 03/08/18 Fluconazole [Diflucan] 100 mg PO DAILY #5 tablet 03/08/18 Menthol/Lanolin/Calamine/Znox 1 applic TOPICAL BID #1 tube 03/08/18 [Calmoseptine Ointment] Nystatin Powder [Mycostatin Powder] 1 applic TOPICAL BID #1 bottle 03/08/18 Cetirizine HCl [All Day Allergy] 10 mg PO PRN PRN 06/13/18 Duloxetine Hcl [Cymbalta] 60 mg PO DAILY 06/13/18 Spironolactone [Aldactone] 25 mg PO DAILY 06/13/18 Surgical History: - - Cholecystectomy, hernia repair, cataract surgery, D&C. Psychiatric History: Anxiety, Depression [employer]PA[employer] History: No pertinent [employer] REPAIR history Smoking Status: Former smoker Tobacco Use: Cigarettes Alcohol: None Drugs: None - *Family History Sibling History Items: - - Patient notes sibling with heart disease, coronary disease, diabetes, stroke. Maternal History Items: - - Patient notes a maternal family history of heart disease, diabetes, stroke. Paternal History Items: - - Patient notes a paternal family history of hypertension. Review of Systems Constitutional: Reports: Chills, Weakness. Denies: Fever, Weight Change HEENT: Denies: Head Aches, Sinus Congestion, Sinus Drainage Cardiovascular: Denies: Chest Pain, Palpitations Respiratory: Denies: Cough, Shortness of breath at rest, Sputum production Gastrointestinal: Denies: Abdominal Pain, Nausea, Vomiting Genitourinary: Denies: Dysuria Musculoskeletal: Denies: Joint Pain, Joint Tenderness Skin: Reports: Skin Changes. Denies: Rash, Wounds Neurological: Denies: Numbness, Tingling, Focal weakness Psychiatric: Denies: Anxiety, Depression Hematologic/ Lymphatic: Denies: Easy Bruising, Easy Bleeding VTE Information - Inpt Only VTE Present on Admission: No Patient Problems: Active and Suspected Problems Left leg cellulitis (Acute) - Physical Exam General: Alert, Oriented x3, Cooperative, No apparent distress HEENT: Atraumatic, PERRLA, EOMI, Normocephalic Oral: Moist Mucosa Neck: Supple, No JVD, Trachea Midline Lungs: Clear to auscultation, Normal air movement, No rhonchi, No wheeze, No rales Cardiovascular: Regular rate, Regular Rhythm, Normal S1, Normal S2, No murmurs Abdomen: Soft, Non Tender, Non-Distended, No Hepato-splenomegaly Extremities: Capillary Refill Less than 3 Seconds, Edema - On the left greater than the right, Tenderness - Mild calf tenderness on the left compared to the right Skin: - - Left lower extremity anteriorly is warmer than the right, with a slight diffuse redness Neurological: Neuro grossly intact, Sensory exam intact to light touch and pain Psych/Mental Status: Normal Affect, Appropriate Vital Signs Temp Pulse Resp BP Pulse Ox 99.1 F 83 14 107/58 L 97 06/13/18 21:07 06/13/18 21:07 06/13/18 21:07 06/13/18 21:07 06/13/18 21:07 Oxygen Flow Rate (L/min) 3 Oxygen Delivery Method Nasal Cannula Weight: 339 lb Body Mass Index (BMI) 68.4 Laboratory Tests Past 24 Hrs 06/13/18 06/13/18 06/13/18 19:25 19:56 19:56 WBC 12.9 H RBC 4.27 Hgb 12.6 Hct 37.6 MCV 88.1 MCH 29.5 MCHC 33.5 RDW 13.0 RDW Differential 41.6 Plt Count 163 MPV 11.3 Immature Gran % (Auto) 0.200 Neut % (Auto) 91.2 H Lymph % (Auto) 3.5 L [place] % (Auto) 4.7 Eos % (Auto) 0.3 Baso % (Auto) 0.1 Absolute Neuts (auto) 11.8 H Absolute Lymphs (auto) 0.45 L Total Counted Not Reportable Differential Comment SCANNED Sodium 139 Potassium 3.9 Chloride 104 Carbon Dioxide 30.0 Anion Gap 5 BUN 19 H Creatinine 0.60 Estim Creat Clear Calc 248.09 Est GFR (MDRD) Af Amer 131 Est GFR (MDRD) Non-Af 108 BUN/Creatinine Ratio 31.4 H Glucose 165 H Lactic Acid Calcium 9.6 Total Bilirubin 0.60 Direct Bilirubin 0.16 AST 15 ALT 19 Alkaline Phosphatase 102 Total Protein 6.4 Albumin 3.5 Globulin 2.9 Lipase 42 L Urine Color Yellow Urine Clarity Clear Urine pH 6.0 Ur Specific [place] 1.015 Urine Protein Negative Urine Glucose (UA) Normal Urine Ketones 50 H Urine Occult Blood Negative Urine Nitrite Negative Urine Bilirubin Negative Urine Urobilinogen Normal Ur Leukocyte Esterase Negative Urine RBC 0-5 SEEN Urine WBC 0 SEEN Ur Squamous Epith Cells 0-5 SEEN Urine Bacteria 0 SEEN Urine Mucus 0 SEEN 06/13/18 19:56 WBC RBC Hgb Hct MCV MCH MCHC RDW RDW Differential Plt Count MPV Immature Gran % (Auto) Neut % (Auto) Lymph % (Auto) [place] % (Auto) Eos % (Auto) Baso % (Auto) Absolute Neuts (auto) Absolute Lymphs (auto) Total Counted Differential Comment Sodium Potassium Chloride Carbon Dioxide Anion Gap BUN Creatinine Estim Creat Clear Calc Est GFR (MDRD) Af Amer Est GFR (MDRD) Non-Af BUN/Creatinine Ratio Glucose Lactic Acid 1.8 Calcium Total Bilirubin Direct Bilirubin AST ALT Alkaline Phosphatase Total Protein Albumin Globulin Lipase Urine Color Urine Clarity Urine pH Ur Specific [place] Urine Protein Urine Glucose (UA) Urine Ketones Urine Occult Blood Urine Nitrite Urine Bilirubin Urine Urobilinogen Ur Leukocyte Esterase Urine RBC Urine WBC Ur Squamous Epith Cells Urine Bacteria Urine Mucus Assessment/Plan All Active Problems Cellulitis of multiple sites of buttock (Acute) Left leg cellulitis (Acute) Sepsis (Ruled-out) Chest pain (Resolved) History of pneumonia (Resolved) 1. Left lower extremity cellulitis/possible left lower extremity DVT -We will initiate her on oral antibiotics, Keflex 500 mg p.o. 4 times daily there is a possibility that these findings could be secondary to a DVT, given her obesity and her lack of mobility -Obtain a venous Doppler of her left lower extremity -Repeat CBC in a.m. -Lactic acid in the ER was 1.8 2. Morbid obesity -She is to have a gastric sleeve done in and june -Discussed diet and weight loss as well as exercising 3. HTN -She has had an echo in October 2017 with normal EF and normal diastolic function -Continue with her Aldactone 4. Depression -Stable -Continue with Abilify and Cymbalta DVT: Lovenox Code Visit Inpatient E&M: 01250 Init Hosp L2
[2018-06-13 23:20] VITALS: BMI 67.6
[2018-06-13 23:21] VITALS: BP 79/34; PULSE 68; RESP 18; TEMP 37.1; O2SAT 98
[2018-06-13 23:30] VITALS: O2SAT 99
[2018-06-13 23:46] VITALS: BMI 67.6
[2018-06-14] VITALS (9 sets, daily range): BP systolic 89–116; BP diastolic 39–68; PULSE 64–74; RESP 18–20; TEMP 36.5–37.9; O2SAT 93–100
[2018-06-14] MEDS: 0.9% Normal Saline 1,000 ML 100 ML IV (00:28)
[2018-06-14] MEDS: Cephalexin 500 MG Capsule PO (01:35)
[2018-06-14 05:48] LABS: Absolute Neutrophil Count 8.1 X10^3/uL (2.0-7.7); Eosinophil# 0.05 X10^3/uL; Eosinophils% 0.5 % (0-5); Hematocrit 34.8 % (37-47); Hemoglobin 11.5 g/dl (12.0-15.0); Lymphocyte % 8.5 % (19-41); Mean Corpuscular Hgb 29.3 pg (27.0-32.0); Mean Corpuscular Volume 88.8 fL (81-99); Mean Platelet Vol. 11.2 fl (6.2-12.0); Monocyte# 0.46 X10^3/uL; Monocyte% 4.9 % (0-10); Platelet Count 146 K/mm3 (150-450); RBC Distribution Width SD 41.7 fl (35.1-43.9); Red Blood Count 3.92 M/mm3 (4.2-5.4); White Blood Count 9.4 K/mm3 (4.4-11.0)
[2018-06-14 05:52] LABS: POSITIVE COUNT NO; POSITIVE DIFFERENTIAL NO; POSITIVE MORPHOLOGY NO
--- NOTE | 2018-06-14 05:55 | VDLE_ITS ---
Reason For Study: Swelling RIGHT LEFT CFV is compressible, spontaneous, phasic, GSV is normal. competent and demonstrates normal CFV is compressible, spontaneous, phasic, augmentation. competent, and demonstrates normal Procedure augmentation. Exam performed portable in patient room. FV is compressible, spontaneous, phasic, A preliminary report was called and/or faxed competent and demonstrates normal to Renee SALCIDO. augmentation. POP V is compressible, spontaneous, phasic, competent and demonstrates normal augmentation. T/P Trunk is compressible. PTV is compressible. LT PerV is compressible. Lt GastrocV is dilated and non compressible consistent with acute DVT Hypoechoic, non vascular structure noted Lt Pop Fossa measuring 2.50cm x 1.87cm. Interpretation Summary Acute deep venous thrombosis left gastrocnemius vein Left popliteal fossa 2.5 x 1.9cm cyst. Patent and compressible left great saphenous vein Normal flow patterns right common femoral vein. Ordering Physician: Walter Brown Referring Physician: Vincent Negro Performed By: Rena Hutchins, MARINA, RVT
[2018-06-14 06:04] LABS: Anion Gap 5 (5-15); BUN 15 mg/dL (7-18); BUN/Creat Ratio 32.2 RATIO (10-20); Calcium,Total 8.8 mg/dL (8.5-10.1); Chloride 108 mmol/L (98-107); Creatinine, Serum 0.47 mg/dL (0.55-1.02); EST Glomerular Filtration Rate 146 mL/min (>60); Est Glom Filt Rate - Afr Amer 177 mL/min (>60); Estimated Creatinine Clearance 312.87 ml/min; Glucose 104 mg/dL (74-106); Potassium 4.2 mmol/L (3.5-5.1); Sodium Level 142 mmol/L (136-145)
[2018-06-14] MEDS: Menthol/Lanolin/Calamine/Znox 113 GM Tube 1 APPLIC TOPICAL ×3 (06:25→21:56)
[2018-06-14 06:36] LABS: Bedside Glucose 109 mg/dL (70-110)
[2018-06-14] MEDS: 0.9% Normal Saline 1,000 ML 150 ML IV (08:13)
[2018-06-14] MEDS: Cefazolin 2 GM in 0.9% Normal Saline 100 ML IV ×3 (08:13→22:01)
--- NOTE | 2018-06-14 08:32 | PCM.PN.HOSP ---
Patient Problems: Active and Suspected Problems Left leg cellulitis (Acute) Subjective: The patient has been admitted for feeling weak and Unwell for few days which got worse with left lower extremity swelling and pain for 2 days. Patient also had fever and chills for last 2 days. Morbid obesity. Patient has lost about 70 pounds in last 6 to 7 months. Patient is scheduled for bariatric surgery in June [address] [facility]. Vitals/I&O's: Vital Signs Temp Pulse Resp BP Pulse Ox 100 F H 73 18 90/39 L 99 06/14/18 06:02 06/14/18 05:57 06/14/18 05:57 06/14/18 06:02 06/14/18 05:57 Oxygen Flow Rate (L/min) 2 Oxygen Delivery Method Room Air Weight: 324 lb 4.8 oz Body Mass Index (BMI) 67.6 Intake and Output for Last 24 Hours 06/12/18 06/13/18 06/14/18 23:59 23:59 23:59 Intake Total 1308 / 1308 Balance 1308 / 1308 General: Alert, Oriented x3, Cooperative HEENT: Atraumatic, PERRLA, EOMI, Normocephalic Neck: Supple, No JVD, Negative Carotid Bruits Lungs: Clear to auscultation, No rhonchi, No wheeze, No rales, Diminished Cardiovascular: Regular rate, Regular Rhythm, Normal S1, Normal S2, No murmurs Abdomen: Bowel Sounds Present, Soft, Non Tender, Non-Distended Extremities: Capillary Refill Less than 3 Seconds, Edema, Tenderness - Tenderness present on posterior aspect of both thigh and buttock region, - - Bilateral lower extremity swelling and lymphedema Skin: Ulcer/ Wound - Stage I decubitus ulcer sacral region with redness and nonblanching erythema, Rash Present - Erythematous rash with tenderness present of posterior aspect of both thigh Panniculitis present in the back of thigh Musculoskeletal: No Tenderness to Palpation of Joints or Extremities, Arthritic Changes Lymphatic: No Cervical, Supraclavicular, or Inguinal Adenopathy Neurological: Cranial nerves II-XII grossly intact, Deep Tendon Reflexes 2+/4 and Symmetrical, Neuro grossly intact Psych/Mental Status: Normal Affect, Appropriate Laboratory Results 06/13/18 19:25: Urine Color Yellow, Urine Clarity Clear, Urine pH 6.0, Ur Specific [place] 1.015, Urine Protein Negative, Urine Glucose (UA) Normal, Urine Ketones 50 H, Urine Occult Blood Negative, Urine Nitrite Negative, Urine Bilirubin Negative, Urine Urobilinogen Normal, Ur Leukocyte Esterase Negative, Urine RBC 0-5 SEEN, Urine WBC 0 SEEN, Ur Squamous Epith Cells 0-5 SEEN, Urine Bacteria 0 SEEN, Urine Mucus 0 SEEN 06/13/18 19:56: WBC 12.9 H, RBC 4.27, Hgb 12.6, Hct 37.6, MCV 88.1, MCH 29.5, MCHC 33.5, RDW 13.0, RDW Differential 41.6, Plt Count 163, MPV 11.3, Immature Gran % (Auto) 0.200, Neut % (Auto) 91.2 H, Lymph % (Auto) 3.5 L, [place] % (Auto) 4.7, Eos % (Auto) 0.3, Baso % (Auto) 0.1, Absolute Neuts (auto) 11.8 H, Absolute Lymphs (auto) 0.45 L, Total Counted Not Reportable, Differential Comment SCANNED 06/13/18 19:56: Sodium 139, Potassium 3.9, Chloride 104, Carbon Dioxide 30.0, Anion Gap 5, BUN 19 H, Creatinine 0.60, Estim Creat Clear Calc 248.09, Est GFR (MDRD) Af Amer 131, Est GFR (MDRD) Non-Af 108, BUN/Creatinine Ratio 31.4 H, Glucose 165 H, Calcium 9.6, Total Bilirubin 0.60, Direct Bilirubin 0.16, AST 15, ALT 19, Alkaline Phosphatase 102, Total Protein 6.4, Albumin 3.5, Globulin 2.9, Lipase 42 L 06/13/18 19:56: Lactic Acid 1.8 06/14/18 05:26: WBC 9.4, RBC 3.92 L, Hgb 11.5 L, Hct 34.8 L, MCV 88.8, MCH 29.3, MCHC 33.0, RDW 13.0, RDW Differential 41.7, Plt Count 146 L, MPV 11.2, Immature Gran % (Auto) 0.100, Neut % (Auto) 86.0 H, Lymph % (Auto) 8.5 L, [place] % (Auto) 4.9, Eos % (Auto) 0.5, Baso % (Auto) 0.0, Absolute Neuts (auto) 8.1 H, Absolute Lymphs (auto) 0.80 L, Total Counted Not Reportable 06/14/18 05:26: Sodium 142, Potassium 4.2, Chloride 108 H, Carbon Dioxide 29.0, Anion Gap 5, BUN 15, Creatinine 0.47 L, Estim Creat Clear Calc 312.87, Est GFR (MDRD) Af Amer 177, Est GFR (MDRD) Non-Af 146, BUN/Creatinine Ratio 32.2 H, Glucose 104, Calcium 8.8 06/14/18 06:05: POC Glucose 109 Current Medications Acetaminophen (Tylenol) 650 mg PO Q4H PRN PRN PRN Reason: pain/fever Hydrocodone Bitart/Acetaminophen ([place] 5mg-325mg) 1 tablet PO TID PRN PRN PRN Reason: PAIN Aripiprazole (Abilify) 10 mg PO QHS [facility] Baclofen (Lioresal) 10 mg PO BID [facility] Calamine/Phenol (Calmoseptine Ointment) 1 applic TOPICAL TID [facility]; Protocol Last Admin: 06/14/18 06:25 Dose: 1 applic Duloxetine HCl (Cymbalta) 60 mg PO DAILY [facility] Enoxaparin Sodium (Lovenox) 40 mg SC DAILY@1000 [facility] Gabapentin (Neurontin) 300 mg PO BID [facility] Sodium Chloride () 250 mls @ 15 mls/hr IV .[id number] PRN PRN Reason: SALINE FLUSH Sodium Chloride () 1,000 mls @ 150 mls/hr IV .Q6H40M [facility] Last Admin: 06/14/18 08:13 Dose: 150 mls/hr Cefazolin Sodium 2 gm/ Sodium (Chloride) 110 mls @ 150 mls/hr IV Q8 [facility] Last Admin: 06/14/18 08:13 Dose: 150 mls/hr Lactated Ringer's () 1,000 mls @ 125 mls/hr IV .Q8H [facility] Loratadine (Claritin) 10 mg PO DAILY PRN PRN PRN Reason: ALLERGIES Primidone (Mysoline) 50 mg PO QHS [facility] Sodium Chloride () 5 - 15 ml IV UD PRN PRN Reason: SALINE FLUSH Spironolactone (Aldactone) 25 mg PO DAILY [facility] Trazodone HCl (Desyrel) 50 mg PO QHS [facility] Medical Necessity - Tobacco Use Smoking Status: Former smoker Tobacco Use: Cigarettes Assessment/Plan All Active Problems Cellulitis of multiple sites of buttock (Acute) Left leg cellulitis (Acute) Sepsis (Ruled-out) Chest pain (Resolved) History of pneumonia (Resolved) The patient is a 58 year old F with PMH as below who presents with feeling unwell today. She states that she had not been feeling very well for the last several days so today she felt weak and chilled. She had noticed that she was having redness in her left lower extremity which was different than her normal, and she also noticed that her left lower extremity was swollen. She presented to the ER for further evaluation where she was found to have a leukocytosis as well as a mild temperature to 100.4. She is currently feeling much better after getting IV fluids and a dose of antibiotics. She denies any shortness of breath or chest pain. No lightheadedness or dizziness. 1. Left lower extremity cellulitis/ left lower extremity DVT in gastrocnemius vein -On cefazolin 2 g IV every 8 hourly because of her body weight. -Venous Doppler is positive of DVT in the left calf. Started on Eliquis 10 mg twice daily for 7 days and then 5 mg twice daily for at least 3 months -Leukocytosis resolved. -Lactic acid in the ER was 1.8 2. Morbid obesity -She is to have a gastric sleeve done in [place] in June 2018 -Discussed diet and weight loss as well as exercising 3. HTN -She has had an echo in October 2017 with normal EF and normal diastolic function -Continue with her Aldactone 4. Depression -Stable -Continue with Abilify and Cymbalta Stage I decubitus ulcer over sacrococcygeal region: Coccygeal region has nonblanching erythema. DVT: Lovenox Code Visit Inpatient E&M: 94217 Subs Hosp L2
--- NOTE | 2018-06-14 08:36 | PN_ITS ---
Patient Problems: Active and Suspected Problems Left leg cellulitis (Acute) Subjective: The patient has been admitted for feeling weak and Unwell for few days which got worse with left lower extremity swelling and pain for 2 days. Patient also had fever and chills for last 2 days. Morbid obesity. Patient has lost about 70 pounds in last 6 to 7 months. Patient is scheduled for bariatric surgery in June 2018 in [facility]. Vitals/I&O's: Vital Signs Temp Pulse Resp BP Pulse Ox 100 F H 73 18 90/39 L 99 06/14/18 06:02 06/14/18 05:57 06/14/18 05:57 06/14/18 06:02 06/14/18 05:57 Oxygen Flow Rate (L/min) 2 Oxygen Delivery Method Room Air Weight: 324 lb 4.8 oz Body Mass Index (BMI) 67.6 Intake and Output for Last 24 Hours 06/12/18 06/13/18 06/14/18 23:59 23:59 23:59 Intake Total 1308 / 1308 Balance 1308 / 1308 General: Alert, Oriented x3, Cooperative HEENT: Atraumatic, PERRLA, EOMI, Normocephalic Neck: Supple, No JVD, Negative Carotid Bruits Lungs: Clear to auscultation, No rhonchi, No wheeze, No rales, Diminished Cardiovascular: Regular rate, Regular Rhythm, Normal S1, Normal S2, No murmurs Abdomen: Bowel Sounds Present, Soft, Non Tender, Non-Distended Extremities: Capillary Refill Less than 3 Seconds, Edema, Tenderness - Tenderness present on posterior aspect of both thigh and buttock region, - - Bilateral lower extremity swelling and lymphedema Skin: Ulcer/ Wound - Stage I decubitus ulcer sacral region with redness and nonblanching erythema, Rash Present - Erythematous rash with tenderness present of posterior aspect of both thigh Panniculitis present in the back of thigh Musculoskeletal: No Tenderness to Palpation of Joints or Extremities, Arthritic Changes Lymphatic: No Cervical, Supraclavicular, or Inguinal Adenopathy Neurological: Cranial nerves II-XII grossly intact, Deep Tendon Reflexes 2+/4 and Symmetrical, Neuro grossly intact Psych/Mental Status: Normal Affect, Appropriate Laboratory Results 06/13/18 19:25: Urine Color Yellow, Urine Clarity Clear, Urine pH 6.0, Ur Specific [place] 1.015, Urine Protein Negative, Urine Glucose (UA) Normal, Urine Ketones 50 H, Urine Occult Blood Negative, Urine Nitrite Negative, Urine Bilirubin Negative, Urine Urobilinogen Normal, Ur Leukocyte Esterase Negative, Urine RBC 0-5 SEEN, Urine WBC 0 SEEN, Ur Squamous Epith Cells 0-5 SEEN, Urine Bacteria 0 SEEN, Urine Mucus 0 SEEN 06/13/18 19:56: WBC 12.9 H, RBC 4.27, Hgb 12.6, Hct 37.6, MCV 88.1, MCH 29.5, MCHC 33.5, RDW 13.0, RDW Differential 41.6, Plt Count 163, MPV 11.3, Immature Gran % (Auto) 0.200, Neut % (Auto) 91.2 H, Lymph % (Auto) 3.5 L, [place] % (Auto) 4.7, Eos % (Auto) 0.3, Baso % (Auto) 0.1, Absolute Neuts (auto) 11.8 H, Absolute Lymphs (auto) 0.45 L, Total Counted Not Reportable, Differential Comment SCANNED 06/13/18 19:56: Sodium 139, Potassium 3.9, Chloride 104, Carbon Dioxide 30.0, Anion Gap 5, BUN 19 H, Creatinine 0.60, Estim Creat Clear Calc 248.09, Est GFR (MDRD) Af Amer 131, Est GFR (MDRD) Non-Af 108, BUN/Creatinine Ratio 31.4 H, Glucose 165 H, Calcium 9.6, Total Bilirubin 0.60, Direct Bilirubin 0.16, AST 15, ALT 19, Alkaline Phosphatase 102, Total Protein 6.4, Albumin 3.5, Globulin 2.9, Lipase 42 L 06/13/18 19:56: Lactic Acid 1.8 06/14/18 05:26: WBC 9.4, RBC 3.92 L, Hgb 11.5 L, Hct 34.8 L, MCV 88.8, MCH 29.3, MCHC 33.0, RDW 13.0, RDW Differential 41.7, Plt Count 146 L, MPV 11.2, Immature Gran % (Auto) 0.100, Neut % (Auto) 86.0 H, Lymph % (Auto) 8.5 L, [place] % (Auto) 4.9, Eos % (Auto) 0.5, Baso % (Auto) 0.0, Absolute Neuts (auto) 8.1 H, Absolute Lymphs (auto) 0.80 L, Total Counted Not Reportable 06/14/18 05:26: Sodium 142, Potassium 4.2, Chloride 108 H, Carbon Dioxide 29.0, Anion Gap 5, BUN 15, Creatinine 0.47 L, Estim Creat Clear Calc 312.87, Est GFR (MDRD) Af Amer 177, Est GFR (MDRD) Non-Af 146, BUN/Creatinine Ratio 32.2 H, Glucose 104, Calcium 8.8 06/14/18 06:05: POC Glucose 109 Current Medications Acetaminophen (Tylenol) 650 mg PO Q4H PRN PRN PRN Reason: pain/fever Hydrocodone Bitart/Acetaminophen ([place] 5mg-325mg) 1 tablet PO TID PRN PRN PRN Reason: PAIN Aripiprazole (Abilify) 10 mg PO QHS [facility] Baclofen (Lioresal) 10 mg PO BID [facility] Calamine/Phenol (Calmoseptine Ointment) 1 applic TOPICAL TID [facility]; Protocol Last Admin: 06/14/18 06:25 Dose: 1 applic Duloxetine HCl (Cymbalta) 60 mg PO DAILY [facility] Enoxaparin Sodium (Lovenox) 40 mg SC DAILY@1000 [facility] Gabapentin (Neurontin) 300 mg PO BID [facility] Sodium Chloride () 250 mls @ 15 mls/hr IV .[id number] PRN PRN Reason: SALINE FLUSH Sodium Chloride () 1,000 mls @ 150 mls/hr IV .Q6H40M [facility] Last Admin: 06/14/18 08:13 Dose: 150 mls/hr Cefazolin Sodium 2 gm/ Sodium (Chloride) 110 mls @ 150 mls/hr IV Q8 [facility] Last Admin: 06/14/18 08:13 Dose: 150 mls/hr Lactated Ringer's () 1,000 mls @ 125 mls/hr IV .Q8H [facility] Loratadine (Claritin) 10 mg PO DAILY PRN PRN PRN Reason: ALLERGIES Primidone (Mysoline) 50 mg PO QHS [facility] Sodium Chloride () 5 - 15 ml IV UD PRN PRN Reason: SALINE FLUSH Spironolactone (Aldactone) 25 mg PO DAILY [facility] Trazodone HCl (Desyrel) 50 mg PO QHS [facility] Medical Necessity - Tobacco Use Smoking Status: Former smoker Tobacco Use: Cigarettes Assessment/Plan All Active Problems Cellulitis of multiple sites of buttock (Acute) Left leg cellulitis (Acute) Sepsis (Ruled-out) Chest pain (Resolved) History of pneumonia (Resolved) The patient is a 58 year old F with PMH as below who presents with feeling unwell today. She states that she had not been feeling very well for the last several days so today she felt weak and chilled. She had noticed that she was having redness in her left lower extremity which was different than her normal, and she also noticed that her left lower extremity was swollen. She presented to the ER for further evaluation where she was found to have a leukocytosis as well as a mild temperature to 100.4. She is currently feeling much better after getting IV fluids and a dose of antibiotics. She denies any shortness of breath or chest pain. No lightheadedness or dizziness. 1. Left lower extremity cellulitis/ left lower extremity DVT in gastrocnemius vein -On cefazolin 2 g IV every 8 hourly because of her body weight. -Venous Doppler is positive of DVT in the left calf. Started on Eliquis 10 mg twice daily for 7 days and then 5 mg twice daily for at least 3 months -Leukocytosis resolved. -Lactic acid in the ER was 1.8 2. Morbid obesity -She is to have a gastric sleeve done in [place] in June 2018 -Discussed diet and weight loss as well as exercising 3. HTN -She has had an echo in October 2017 with normal EF and normal diastolic function -Continue with her Aldactone 4. Depression -Stable -Continue with Abilify and Cymbalta Stage I decubitus ulcer over sacrococcygeal region: Coccygeal region has nonblanching erythema. DVT: Lovenox Code Visit Inpatient E&M: 71529 Subs Hosp L2
[2018-06-14] MEDS: Acetaminophen 325 MG Tablet 650 MG PO ×3 (10:11→18:38)
[2018-06-14] MEDS: Enoxaparin 40 MG/0.4 ML Syringe SC (10:13)
[2018-06-14] MEDS: Baclofen 10 MG Tablet PO ×2 (10:13→21:57)
[2018-06-14] MEDS: Gabapentin 300 MG Capsule PO ×2 (10:13→21:57)
[2018-06-14] MEDS: DULoxetine Hcl 60 MG Capsule PO (10:13)
--- NOTE | 2018-06-14 11:30 | CASEMGMT ---
RN CM Assessment Presentation: Cellulitis L leg, possible DVT. Intro role of CM and purpose of RN CM assessment. Demographics, PCP and Pharmacy verified. PCP: Dr. Negro Specialists: [facility] for Cardiology; Dr. Myles, pulmonology Preferred Pharmacy: [facility] preferred Insurance: [employer] [facility] Prescription Benefit: yes LNOK: Sisters: Adela Khan and Dario Thomson Living Arrangements: pt lives in one story apt, no stairs. Pt has [facility] aides M-F 3 hours/day through [employer] [facility]. Transportation: pt drives. DME: walker, cane, grab bars, shower chair, BIpap, trapeze, hospital bed, Lift chair HHC: had [facility] in past. None now. If HHS needed for skilled RN, PT/OT- pt is agreeable to have [facility] see her. [place] Waiver: Shanice Lyons, [employer]- message left with call back information that pt is @ [facility]. [facility] for aides [phone] Patient DC goals: Home. DC PLAN: anticipate Home on discharge. Pt is not sure she would need skilled home care as she has aides assisting her @ home. If home care is recommended, pt would like [facility] (unless wound care is needed, then will need different agency). Referrals have not been sent as pt is not sure she wished home health to come yet. Liliane MONTANEZN RN ACM
[2018-06-14] MEDS: APIXABAN 5 MG TABLET 10 MG PO ×2 (14:25→21:56)
[2018-06-14 17:06] LABS: Bedside Glucose 87 mg/dL (70-110)
[2018-06-14] MEDS: ARIPiprazole 10 MG Tablet PO (21:56)
[2018-06-14] MEDS: traZODone 50 MG Tablet PO (21:57)
[2018-06-14] MEDS: Primidone 50 MG Tablet PO (21:57)
[2018-06-15 01:50] VITALS: BP 119/45; PULSE 66; RESP 20; TEMP 37.1; O2SAT 98
[2018-06-15] MEDS: HYDROcodone Bitartrate/Apap 5/325 Tablet PO ×2 (01:52→11:19)
[2018-06-15] MEDS: 0.9% Normal Saline 1,000 ML 100 ML IV (02:46)
[2018-06-15] MEDS: Menthol/Lanolin/Calamine/Znox 113 GM Tube 1 APPLIC TOPICAL (06:29)
[2018-06-15] MEDS: Cefazolin 2 GM in 0.9% Normal Saline 100 ML IV (06:31)
[2018-06-15] MEDS: Acetaminophen 325 MG Tablet 650 MG PO (06:36)
[2018-06-15 08:28] VITALS: BP 121/57; PULSE 64; RESP 20; TEMP 37.1; O2SAT 97
[2018-06-15 09:29] VITALS: PULSE 64
[2018-06-15] MEDS: Baclofen 10 MG Tablet PO (09:40)
[2018-06-15] MEDS: DULoxetine Hcl 60 MG Capsule PO (09:41)
[2018-06-15] MEDS: APIXABAN 5 MG TABLET 10 MG PO (09:41)
[2018-06-15] MEDS: Gabapentin 300 MG Capsule PO (09:41)
--- NOTE | 2018-06-15 10:11 | NURSING ---
Per chucking machine set up operator tool report pt had been on clear liquid diet in preparation for gastric sleeve surgery that had been scheduled for June. She notified this RN at this time that she will no longer be having surgery in June and will be able to eat diet as ordered. Dietary notified of same.
--- NOTE | 2018-06-15 11:17 | PCM.DC ---
- Discharge Diagnoses Current Active Problems: Current Active and Chronic Problems Left leg cellulitis (Acute) You will use the following diet at home:: Calorie/Carbohydrate Controlled (specify 1200, 1400, etc) - 1800 calories, Cardiac Your food should be the consistency of: Regular Your liquids should be the consistency of: Regular/Thin Discharge Activity: Return to Normal Activity Weight Bearing Status: Weight bearing as tolerated Instructions: Discharge Instructions for Cellulitis, Treating Deep Vein Thrombosis, Understanding Deep Vein Thrombosis Additional Instructions: hold off on taking the primidone for a few days at home to see if tremors recur; If tremors don't recur, stop primidone and follow up with PCP. Primidone and eliquis are metabolised by same enzyme. Follow up with bariatric surgeons at [facility] Allergies/Adverse Reactions: Allergies vancomycin Allergy (Verified 10/29/17 12:44) Rash amlodipine Adverse Reaction (Verified 10/29/17 12:44) Unknown atenolol Adverse Reaction (Verified 10/29/17 12:44) Unknown bupropion HCl [From Wellbutrin] Adverse Reaction (Verified 10/29/17 12:44) Unknown fluoxetine HCl [From Prozac] Adverse Reaction (Verified 10/29/17 12:44) Unknown meloxicam [From Mobic] Adverse Reaction (Verified 10/29/17 12:44) Unknown metoprolol Adverse Reaction (Verified 10/29/17 12:44) Unknown pregabalin [From Lyrica] Adverse Reaction (Verified 10/29/17 12:44) Unknown quetiapine fumarate [From Seroquel] Adverse Reaction (Verified 10/29/17 12:44) Unknown quinapril HCl [From Accupril] Adverse Reaction (Verified 10/29/17 12:44) Unknown risperidone Adverse Reaction (Verified 10/29/17 12:44) Unknown rofecoxib [From Vioxx] Adverse Reaction (Verified 10/29/17 12:44) Unknown sitagliptin phosphate [From Januvia] Adverse Reaction (Verified 10/29/17 12:44) Unknown venlafaxine HCl [From Effexor] Adverse Reaction (Verified 10/29/17 12:44) Unknown Medications to take at Discharge Duloxetine HCl 60 mg PO DAILY 12/02/14 Ranitidine [Zantac] 150 mg PO BID 12/02/14 Spironolactone [Aldactone] 25 mg PO DAILY 12/02/14 Gabapentin [Neurontin] 300 mg PO BID 08/01/17 Primidone [Mysoline] 50 mg PO QHS 08/01/17 traZODone [Desyrel] 50 mg PO QHS 08/01/17 Nitroglycerin [Nitrostat] 0.4 mg SL PRN PRN 09/09/17 Aripiprazole [Abilify] 10 mg PO QHS 10/21/17 Baclofen 10 mg PO BID 03/06/18 Hydrocodone/Acetaminophen [Hydrocodone-Acetamin 5-325 mg] 1 tab PO TID PRN PRN 03/06/18 Polyethylene Glycol 3350 17 gm PO DAILY PRN PRN 03/06/18 Cetirizine HCl [All Day Allergy] 10 mg PO DAILY PRN PRN 06/13/18 Chlorhexidine Gluc 2% Cloth 1 each TOPICAL DAILY 06/13/18 Menthol/Lanolin/Calamine/Znox [Calmoseptine Ointment] 1 applic TOPICAL DAILY 06/13/18 Nystatin/Triamcin Cream [Mycolog] 1 applic TOPICAL DAILY 06/13/18 Apixaban [Eliquis] 5 mg PO UD #1 tab.ds.pk 06/15/18 Cephalexin 750 mg PO [id number] #28 capsule 06/15/18 The following prescriptions were given: Apixaban [Eliquis] 5 mg PO UD #1 tab.ds.pk Cephalexin 750 mg PO [id number] #28 capsule Primary Care Physician: Vincent Negro MD [Primary Care Provider] - Please follow up with your Primary Care Physician in: one week Test Results: Test results from this visit will be discussed in further detail at your follow-up appointment, if applicable. Proposed Discharge Date: 06/15/18
--- NOTE | 2018-06-15 11:21 | DCINST_ITS ---
- Discharge Diagnoses Current Active Problems: Current Active and Chronic Problems Left leg cellulitis (Acute) You will use the following diet at home:: Calorie/Carbohydrate Controlled (specify 1200, 1400, etc) - 1800 calories, Cardiac Your food should be the consistency of: Regular Your liquids should be the consistency of: Regular/Thin Discharge Activity: Return to Normal Activity Weight Bearing Status: Weight bearing as tolerated Instructions: Discharge Instructions for Cellulitis, Treating Deep Vein Thrombosis, Understanding Deep Vein Thrombosis Additional Instructions: hold off on taking the primidone for a few days at home to see if tremors recur; If tremors don't recur, stop primidone and follow up with PCP. Primidone and eliquis are metabolised by same enzyme. Follow up with bariatric surgeons at [facility] Allergies/Adverse Reactions: Allergies vancomycin Allergy (Verified 10/29/17 12:44) Rash amlodipine Adverse Reaction (Verified 10/29/17 12:44) Unknown atenolol Adverse Reaction (Verified 10/29/17 12:44) Unknown bupropion HCl [From Wellbutrin] Adverse Reaction (Verified 10/29/17 12:44) Unknown fluoxetine HCl [From Prozac] Adverse Reaction (Verified 10/29/17 12:44) Unknown meloxicam [From Mobic] Adverse Reaction (Verified 10/29/17 12:44) Unknown metoprolol Adverse Reaction (Verified 10/29/17 12:44) Unknown pregabalin [From Lyrica] Adverse Reaction (Verified 10/29/17 12:44) Unknown quetiapine fumarate [From Seroquel] Adverse Reaction (Verified 10/29/17 12:44) Unknown quinapril HCl [From Accupril] Adverse Reaction (Verified 10/29/17 12:44) Unknown risperidone Adverse Reaction (Verified 10/29/17 12:44) Unknown rofecoxib [From Vioxx] Adverse Reaction (Verified 10/29/17 12:44) Unknown sitagliptin phosphate [From Januvia] Adverse Reaction (Verified 10/29/17 12:44) Unknown venlafaxine HCl [From Effexor] Adverse Reaction (Verified 10/29/17 12:44) Unknown Medications to take at Discharge Duloxetine HCl 60 mg PO DAILY 12/02/14 Ranitidine [Zantac] 150 mg PO BID 12/02/14 Spironolactone [Aldactone] 25 mg PO DAILY 12/02/14 Gabapentin [Neurontin] 300 mg PO BID 08/01/17 Primidone [Mysoline] 50 mg PO QHS 08/01/17 traZODone [Desyrel] 50 mg PO QHS 08/01/17 Nitroglycerin [Nitrostat] 0.4 mg SL PRN PRN 09/09/17 Aripiprazole [Abilify] 10 mg PO QHS 10/21/17 Baclofen 10 mg PO BID 03/06/18 Hydrocodone/Acetaminophen [Hydrocodone-Acetamin 5-325 mg] 1 tab PO TID PRN PRN 03/06/18 Polyethylene Glycol 3350 17 gm PO DAILY PRN PRN 03/06/18 Cetirizine HCl [All Day Allergy] 10 mg PO DAILY PRN PRN 06/13/18 Chlorhexidine Gluc 2% Cloth 1 each TOPICAL DAILY 06/13/18 Menthol/Lanolin/Calamine/Znox [Calmoseptine Ointment] 1 applic TOPICAL DAILY 06/13/18 Nystatin/Triamcin Cream [Mycolog] 1 applic TOPICAL DAILY 06/13/18 Apixaban [Eliquis] 5 mg PO UD #1 tab.ds.pk 06/15/18 Cephalexin 750 mg PO [id number] #28 capsule 06/15/18 The following prescriptions were given: Apixaban [Eliquis] 5 mg PO UD #1 tab.ds.pk Cephalexin 750 mg PO [id number] #28 capsule Primary Care Physician: Vincent Negro MD [Primary Care Provider] - Please follow up with your Primary Care Physician in: one week Test Results: Test results from this visit will be discussed in further detail at your follow- up appointment, if applicable. Proposed Discharge Date: 06/15/18
--- NOTE | 2018-06-15 11:21 | PCM.DC.SUM ---
Discharge Date and Diagnosis Date of Admission: 06/13/18 Date of Discharge: 06/15/18 - Primary Discharge Diagnosis Active and Suspected Problems Left leg cellulitis (Acute) acute LLE DVT - Secondary Discharge Diagnosis Chronic Problems Exertional dyspnea (Chronic) Pulmonary hypertension (Chronic) Anxiety and depression (Chronic) Heart failure (Chronic) Diabetes mellitus, type II (Chronic) Chronic back pain (Chronic) JEREMÍAS (obstructive sleep apnea) (Chronic) Lumbosacral neuritis (Chronic) Esophageal reflux (Chronic) Morbid obesity (Chronic) Hypertension (Chronic) Hospital Course and Treatment Imaging Results: Diagnostic Data Chest X-Ray 06/13/18 19:10 IMPRESSION: Normal x-ray examination of the chest. Electronically Signed: Jose Maria Maldonado MD at 19:27 EDT , Service support , Consultations 06/14/18 13:38 Consult: Onc/Wound/body worker Routine Comment: Reason for Consult:: stage 1 or 2 sacral decubitus ulcer Operations: None Summary of Care Provided: The patient is a 58 year old F with an extensive past medical history as listed. She was admitted with a complaint of left lower extremity redness and swelling as well as general feeling of unwellness. She was found to have elevated white cell count of 100.4 with also elevated leukocytosis. She was admitted and a mild cellulitis of the left lower extremity and was started on p.o. Keflex. Duplex of the left lower extremity was ordered and showed DVT of the left lower extremity. Patient was started on p.o. Eliquis 10 mg twice daily for 7 days and then continue 5 mg twice daily for at least 3 months. Patient had been scheduled to have a gastric sleeve surgery done in June 2018 in [facility]. She will therefore be commenced on clear liquid diet. However in light of acute DVT, patient was counseled that it was likely that surgery would not come on until she had finished treatment for the DVT. Patient was therefore started on a diabetic diet at her request. Patient remained stable and was discharged home 06/15/2018 with a prescription for p.o. Keflex for 7 days as well as p.o. Eliquis 10 mg twice daily for 7 days, until June 19, 2018 then continue with 5 mg twice daily. She is to follow-up with her primary care doctor in 1 week. Patient seen and examined prior to discharge. She had no complaints of multiple wanted to go home. Review of systems otherwise negative. Labs and vitals reviewed. Home medications reviewed and reconciled. Of note, patient noted to be on primidone which she states she takes for tremors. She is unable to state exactly what type of tremors she had. Patient told to stop taking primidone for now as it interacts with metabolism of Eliquis. If tremors recur, she is to follow-up with her primary care doctor for new medication for tremors to be considered. She is also to follow-up with her bariatric surgeon at [facility]. - Physical Exam General: Alert, Oriented x3, Cooperative, - - super morbid obesity HEENT: Atraumatic, PERRLA, EOMI, Normocephalic Oral: Moist Mucosa Neck: Supple, No JVD, Negative Carotid Bruits Lungs: Clear to auscultation, Normal air movement, No rhonchi, No wheeze, No rales Cardiovascular: Regular rate, Regular Rhythm, Normal S1, Normal S2, No murmurs Abdomen: Bowel Sounds Present, Soft, Non Tender, Non-Distended, No Hepato-splenomegaly Extremities: No clubbing, No cyanosis, Capillary Refill Less than 3 Seconds, - - mild bipedal edema, with mild erythema of her LLE; no tenderness of LLE Skin: No rashes, No breakdown Musculoskeletal: No Tenderness to Palpation of Joints or Extremities Lymphatic: No Cervical, Supraclavicular, or Inguinal Adenopathy Neurological: Cranial nerves II-XII grossly intact, Neuro grossly intact, Motor Exam 5/5 strength throughout Psych/Mental Status: Normal Affect, Appropriate, Alert and oriented to time, place, person, mood and affect Vital Signs Temp Pulse Resp BP Pulse Ox 98.7 F 64 20 H 121/57 H 97 06/15/18 08:28 06/15/18 09:29 06/15/18 08:28 06/15/18 08:28 06/15/18 08:28 Oxygen Flow Rate (L/min) 97 Oxygen Delivery Method Room Air Weight: 332 lb 7.313 oz Body Mass Index (BMI) 67.6 Intake and Output for Last 24 Hours 04/25/19 04/26/19 04/27/19 23:59 23:59 23:59 Intake Total 4191 / 4191 1702 / 1702 Output Total 1750 / 1750 1000 / 1000 Balance 2441 / 2441 702 / 702 Microbiology Past 72 Hours 06/13/18 19:25 Urine Culture - Preliminary Urine, Catheterized Culture exhibits no growth. POC Glucose 06/14/18 16:57 POC Glucose 87 Diagnostic Data Chest X-Ray 06/13/18 19:10 IMPRESSION: Normal x-ray examination of the chest. Electronically Signed: Jose Maria Maldonado MD at 19:27 EDT , Service support , Discharge Diet: Low fat/ Low Cholesterol, 1800 Calorie Control Diet Discharge Activity: Return to Normal Activity Weight Bearing Status: Weight bearing as tolerated Call your doctor if you observe: Fever of 101 or Higher, Swelling in the ankles, Calf discomfort Home Medications: Medications to take at Discharge RX: Duloxetine HCl 60 mg PO DAILY 12/02/14 RX: Ranitidine [Zantac] 150 mg PO BID 12/02/14 RX: Spironolactone [Aldactone] 25 mg PO DAILY 12/02/14 RX: Gabapentin [Neurontin] 300 mg PO BID 08/01/17 RX: Primidone [Mysoline] 50 mg PO QHS 08/01/17 RX: traZODone [Desyrel] 50 mg PO QHS 08/01/17 RX: Nitroglycerin [Nitrostat] 0.4 mg SL PRN PRN 09/09/17 RX: Aripiprazole [Abilify] 10 mg PO QHS 10/21/17 RX: Baclofen 10 mg PO BID 03/06/18 RX: Hydrocodone/Acetaminophen [Hydrocodone-Acetamin 5-325 mg] 1 tab PO TID PRN PRN 03/06/18 RX: Polyethylene Glycol 3350 17 gm PO DAILY PRN PRN 03/06/18 RX: Cetirizine HCl [All Day Allergy] 10 mg PO DAILY PRN PRN 06/13/18 RX: Chlorhexidine Gluc 2% Cloth 1 each TOPICAL DAILY 06/13/18 RX: Menthol/Lanolin/Calamine/Znox [Calmoseptine Ointment] 1 applic TOPICAL DAILY 06/13/18 RX: Nystatin/Triamcin Cream [Mycolog] 1 applic TOPICAL DAILY 06/13/18 Apixaban [Eliquis] 5 mg PO UD #1 tab.ds.pk 06/15/18 RX: Cephalexin 750 mg PO [id number] #28 capsule 06/15/18 Following Prescrptions Were Given to Patient: Apixaban [Eliquis] 5 mg PO UD #1 tab.ds.pk RX: Cephalexin 750 mg PO [id number] #28 capsule Primary Care Physician: Vincent Negro MD [Primary Care Provider] - Please follow up with your Primary Care Physician in: one week Patient Instructions: Understanding Deep Vein Thrombosis, Treating Deep Vein Thrombosis, Discharge Instructions for Cellulitis Disposition: Home with Home Health Minutes spent on discharge:: 40 Patient Condition:: Stable Medical Necessity - Tobacco Use Smoking Status: Former smoker Tobacco Use: Cigarettes Meaningful Use Info Meaningful Use Diagnoses (Choose all that apply): VTE - VTE Anticoag overlap given w/in hospital stay or rx'd at dc?: Yes Pt receive overlap for 5 days?: No Reason overlap not ordered, prescribed, or given for 5 days: Procedure Not Indicated - discharged on oral eliquis Code Visit Inpatient E&M: 98291 Disch Hosp
[2018-06-15 12:25] VITALS: BP 110/62; PULSE 82; RESP 20; TEMP 36.9; O2SAT 95
--- NOTE | 2018-06-18 15:14 | CASEMGMT ---
LOLY GARCIA DC PHONE CALL DC DATE: 06/15/18 DC Disposition: Home with aide services through [facility]/STRATA: 12/22 Intro role of CM to patient via home phone. Pt states she does not have questions re: prescriptions, dc instructions or f/u. She has assistance at home and is improving. No care improvement suggestions given. -Call to Adolfo Larson @ [facility] requesting dc date. Called back to [phone] to update pt returned home on 06/15/18. Liliane GARCÍA RN AC
== END 2018-06-15 12:57 | disposition home or self-care (01) | DRG 300 ==
LOC: ED 22:09 → MS2 22:23
PROVIDERS: Admitting Provider Family Medicine; Emergency Provider Emergency Medicine; Family Provider Family Medicine; PCP Family Medicine; Visit Provider Student in an Organized Health Care Education/Training Program
DX: I82.4Z2 Acute embolism and thrombosis of unspecified deep veins of left distal lower extremity (principal); L03.116 Cellulitis of left lower limb; Z68.44 Body mass index [BMI] 60.0-69.9, adult; E66.01 Morbid (severe) obesity due to excess calories; I27.20 Pulmonary hypertension, unspecified; L89.151 Pressure ulcer of sacral region, stage 1; G89.29 Other chronic pain; M54.9 Dorsalgia, unspecified; K21.9 Gastro-esophageal reflux disease without esophagitis; G47.33 Obstructive sleep apnea (adult) (pediatric); I11.0 Hypertensive heart disease with heart failure; I50.9 Heart failure, unspecified; E11.9 Type 2 diabetes mellitus without complications; M54.17 Radiculopathy, lumbosacral region; F32.9 Major depressive disorder, single episode, unspecified; F41.9 Anxiety disorder, unspecified
CPT/HCPCS: 36415; 71045; 80048; 80076; 81001; 82962; 83605; 83690; 85025; 87086; 93971; 97163; 97166; 99285; J7030; J7040; P9612; J2405

== ENCOUNTER → 2018-09-20 08:38 | Outpatient (CLI) | payer MEDICARE, SELFPAY ==
[2018-09-13 10:16] VITALS: BMI 68.4
--- NOTE | 2018-09-20 08:40 | CDU_ITS ---
Reason For Study: Retinal Ischemia Rt. Velocities/BP Lt. Velocities/BP Prox CCA 102.1/21.3 cm/sec. Prox CCA 134.6/24.8 cm/sec. Mid CCA 93/17.3 cm/sec. Mid CCA 91.2/21.2 cm/sec. Dist CCA 78.6/16 cm/sec. Dist CCA 90/22.5 cm/sec. Prox ICA 64.2/12.6 cm/sec. Prox ICA 79.1/15.2 cm/sec. Mid ICA 67.9/20 cm/sec. Mid ICA 81.4/24.9 cm/sec. Dist ICA 77.7/31.1 cm/sec. Dist ICA 83.9/29.8 cm/sec. Rt. ICA/CCA = 0.8. Lt. ICA/CCA = 0.9. Prox ECA 108.3/7.9 cm/sec. Prox ECA 121.1/7.9 cm/sec. Rt. Vert. 48.7/13.5 cm/sec. Lt. Vert. 53.2/15.1 cm/sec. Right Extracranial There is intimal thickening but no significant atherosclerotic plaque noted in the right common carotid artery. There is intimal thickening but no significant atherosclerotic plaque noted in the right internal carotid artery. There is intimal thickening but no significant atherosclerotic plaque noted in the right external carotid artery. Antegrade flow is noted in the right vertebral artery. Left Extracranial There is intimal thickening but no significant atherosclerotic plaque noted in the left common carotid artery. There is heterogeneous, irregular atherosclerotic plaque noted in the left internal carotid artery. There is intimal thickening but no significant atherosclerotic plaque noted in the left external carotid artery. Antegrade flow is noted in the left vertebral artery. Procedure Carotid Duplex [id number]. Exam performed in department. Interpretation Summary No significant atherosclerotic plaque or stenosis noted in the right internal carotid artery. Mild (<50%) stenosis left extracranial internal carotid. Flow within the vertebral arteries is antegrade bilaterally. Ordering Physician: Bryan Calixto Referring Physician: Vincent Negro Performed By: Janell Perez RVT
--- NOTE | 2018-09-20 09:17 | ECHOD_ITS ---
Reason For Study: retina ischemia Procedure This was a 2D Doppler, Color Flow transthoracic echocardiogram. The study was technically difficult. Due to body habitus. Exam performed in department. Left Ventricle Borderline to mildly dilated left ventricle. Left ventricular systolic function is normal. The estimated ejection fraction is 60 %. Diastolic function is indeterminate. No regional wall motion abnormalities noted. Right Ventricle Normal RV size. Normal systolic function. Atria The left atrium is mildly enlarged. Normal right atrium. No doppler evidence for ASD. Mitral Valve There is no mitral annular calcification. Normal mitral valve. Mild (1+) mitral valve insufficiency. Tricuspid Valve Normal tricuspid valve. Mild tricuspid valve insufficiency. Right ventricular systolic pressure estimated to be 36 mmHg. Aortic Valve Trisinus/trileaflet aortic valve. Mild focal aortic valve calcification. Pulmonic Valve The pulmonic valve is not well visualized. Great Vessels Normal sized aortic root. Pericardium/Pleural No pericardial effusion. MMode/2D Measurements & Calculations LVIDd: 5.8 cm IVSd: 1.2 cm Ao root diam: 2.8 cm LVIDs: 4.4 cm LVPWd: 1.2 cm RVDd: 3.5 cm FS: 22.8 % LAV(MOD-bp): 67.0 ml LA A4 area: 22.6 cm2 LA dimension(2D): 4.6 cm LAV(MOD-bp) Indexed: 28.3 ml/m2 LAV(MOD-sp2): 64.6 ml LAV(MOD-sp4): 68.5 ml RA A4 area: 16.3 cm2 Time Measurements MV dec time: 0.17 sec Doppler Measurements & Calculations MV E max beau: 105.3 cm/sec Lat Peak E' Beau: 11.9 cm/sec Med Peak E' Beau: 7.4 cm/sec MV A max beau: 87.8 cm/sec E/E' lat: 8.9 E/E' med: 14.3 MV E/A: 1.2 Ao V2 max: 201.4 cm/sec LV V1 max: 144.0 cm/sec PA V2 max: 181.6 cm/sec Ao max P.2 mmHg LV V1 max P.3 mmHg PA V2 mean: 132.5 cm/sec Ao V2 mean: 138.4 cm/sec LV V1 mean P.3 mmHg PA V2 VTI: 42.8 cm Ao mean P.5 mmHg LV V1 mean: 112.2 cm/sec Ao V2 VTI: 42.9 cm LV V1 VTI: 36.8 cm TR max beau: 287.1 cm/sec TR max P.0 mmHg Interpretation Summary The study was technically difficult. Borderline to mildly dilated left ventricle. Left ventricular systolic function is normal. The estimated ejection fraction is 60 %. The left atrium is mildly enlarged. Mild (1+) mitral valve insufficiency. Mild tricuspid valve insufficiency. Mild focal aortic valve calcification. Right ventricular systolic pressure estimated to be 36 mmHg. Diastolic function is indeterminate. Ordering Physician: Bryan Calixto Referring Physician: Vincent Negro Performed By: Ileana Muller RDCS, RVT
== END ==
PROVIDERS: Family Provider Family Medicine; PCP Family Medicine; Referring Provider Ophthalmology; Visit Provider Ophthalmology
DX: H34.02 Transient retinal artery occlusion, left eye (principal); H35.82 Retinal ischemia
CPT/HCPCS: 93306; 93880

== ENCOUNTER 2019-02-03 18:44 | Emergency (ER) | payer MEDICARE, SELFPAY ==
[2018-09-13 10:16] VITALS: BMI 68.4
[2019-02-03 18:46] VITALS: BP 157/100; PULSE 122; RESP 20; TEMP 36.9; O2SAT 98; BMI 69.0
--- NOTE | 2019-02-03 19:45 | EKG12_ITS ---
Test Reason : Blood Pressure : / mmHG Vent. Rate : 084 BPM Atrial Rate : 084 BPM P-R Int : 136 ms QRS Dur : 076 ms QT Int : 344 ms P-R-T Axes : 054 009 039 degrees QTc Int : 406 ms Normal sinus rhythm Moderate voltage criteria for LVH, may be normal variant Borderline ECG Confirmed by MICHEL SIMS, ALEAH ([id number]), movie editor GRANT SAGASTUME ([id number]) on 02/05/2019 12:55:55 PM Referred By: TL Confirmed By:ALEAH PEARSON MD
[2019-02-03 20:35] LABS: Absolute Lymphocyte Count 1.52 X10^3/uL (0.83-4.51); Absolute Neutrophil Count 4.8 X10^3/uL (2.0-7.7); Basophil# 0.02 X10^3/uL; Basophil% 0.3 % (0-1); Eosinophil# 0.18 X10^3/uL; Eosinophils% 2.6 % (0-5); Hematocrit 42.9 % (37-47); Hemoglobin 14.1 g/dL (12.0-15.0); Lymphocyte # 1.52 X10^3/ul (4.0); Lymphocyte % 21.7 % (19-41); Mean Corp Hgb Conc 32.9 g/dL (32-36); Mean Corpuscular Hgb 29.1 pg (27.0-32.0); Mean Corpuscular Volume 88.6 fL (81-99); Mean Platelet Vol. 10.9 fl (6.2-12.0); Monocyte# 0.49 X10^3/uL; NRBC Flagged by Analyzer 0 % (0-5); Neutrophil # 4.79 X10^3/uL (2.7-7.7); Neutrophil % 68.3 % (47-70); Platelet Count 217 K/mm3 (150-450); RBC Distribution Width CV 12.2 % (11.6-14.6); RBC Distribution Width SD 39.4 fl (35.1-43.9); Red Blood Count 4.84 M/mm3 (4.2-5.4)
--- NOTE | 2019-02-03 20:40 | RAD_ITS ---
STUDY: X-RAY CHEST REASON FOR EXAM: Female, 59 years old. Shortness of breath and hypertension TECHNIQUE: PA and lateral views of the chest. COMPARISON: 06/13/2018 FINDINGS: EKG leads project over the chest. The lungs are clear and expanded. There is no demonstrated pleural abnormality. Normal size heart. Normal mediastinum and erich. Normal visualized pulmonary arteries. Normal visualized aortic arch and descending thoracic aorta. There are diffuse degenerative changes of the visualized thoracic spine. Normal visualized ribs, clavicles, and shoulders. There is no demonstrated abnormality of the visualized soft tissue structures of the upper abdomen. RAD/Chest PA and Lateral IMPRESSION: No acute cardiopulmonary process. Electronically Signed: Cody Dan MD (Brooks) at 21:07 EST , Service support ,
[2019-02-03 20:59] LABS: Anion Gap 4 (5-15); BUN 22 mg/dL (7-18); BUN/Creat Ratio 29.3 RATIO (10-20); Calcium,Total 10.2 mg/dL (8.5-10.1); Chloride 109 mmol/L (98-107); Creatinine, Serum 0.75 mg/dL (0.55-1.02); EST Glomerular Filtration Rate 84 mL/min (>60); Est Glom Filt Rate - Afr Amer 102 mL/min (>60); Estimated Creatinine Clearance 197.79 ml/min; Glucose 263 mg/dL (74-106); Potassium 5.1 mmol/L (3.5-5.1); Sodium Level 141 mmol/L (136-145)
[2019-02-03 21:14] LABS: BNP,B-Type NATRIURETIC PEPTIDE 5.5 pg/mL (0-100)
[2019-02-03 21:23] VITALS: BP 127/62; PULSE 85; RESP 19; O2SAT 97
--- NOTE | 2019-02-03 21:41 | ED.DCSUM_ITS ---
History of Present Illness Chief Complaint: Shortness of Breath Informant: Patient Onset: Days - 3 Narrative: 3 days of shortness of breath nonproductive cough. No fevers. No chest pains. History of congestive heart failure states noticing some leg swelling. She sta sachin she was taken off her Lasix. Saw PCP office was sent here for evaluation. No vomiting or diarrhea. Prior similar symptoms: Yes Past Medical History - Allergies and Home Meds Allergies/Adverse Reactions: Allergies vancomycin Allergy (Verified 02/03/19 18:46) Rash amlodipine Adverse Reaction (Verified 02/03/19 18:46) Unknown atenolol Adverse Reaction (Verified 02/03/19 18:46) Unknown bupropion HCl [From Wellbutrin] Adverse Reaction (Verified 02/03/19 18:46) Unknown fluoxetine HCl [From Prozac] Adverse Reaction (Verified 02/03/19 18:46) Unknown meloxicam [From Mobic] Adverse Reaction (Verified 02/03/19 18:46) Unknown metoprolol Adverse Reaction (Verified 02/03/19 18:46) Unknown pregabalin [From Lyrica] Adverse Reaction (Verified 02/03/19 18:46) Unknown quetiapine fumarate [From Seroquel] Adverse Reaction (Verified 02/03/19 18:46) Unknown quinapril HCl [From Accupril] Adverse Reaction (Verified 02/03/19 18:46) Unknown risperidone Adverse Reaction (Verified 02/03/19 18:46) Unknown rofecoxib [From Vioxx] Adverse Reaction (Verified 02/03/19 18:46) Unknown sitagliptin phosphate [From Januvia] Adverse Reaction (Verified 02/03/19 18:46) Unknown venlafaxine HCl [From Effexor] Adverse Reaction (Verified 02/03/19 18:46) Unknown Primary Care Physician: Vincent Negro MD [Primary Care Provider] - Surgical History: - - Cholecystectomy, hernia repair, cataract surgery, D&C. Smoking Status: Never smoker - Family History Sibling Family History: Reports: - - Patient notes sibling with heart disease, coronary disease, diabetes, stroke. Maternal Family History: Reports: - - Patient notes a maternal family history of heart disease, diabetes, stroke. Paternal Family History: Reports: - - Patient notes a paternal family history of hypertension. Review of Systems General: Denies: Chills, Fever, Sweats Eyes: Denies: Visual changes - bilaterally, Diplopia ENT: Denies: Rhinorrhea, Sore throat Cardiovascular: Denies: Chest pain, Palpitations Respiratory: Reports: Dyspnea, Cough. Denies: Dyspnea on exertion Gastrointestinal: Denies: Abdominal pain, Nausea, Vomiting, Diarrhea, Melena, Hematochezia Genitourinary: Denies: Dysuria, Hematuria, Frequency Musculoskeletal: Denies: Back pain, Extremity Pain Skin: Denies: Rash, Wounds Neurological: Denies: Headache, Weakness, Numbness Physical Exam Vital Signs/Narrative: Vital Signs Temp Pulse Resp BP Pulse Ox 02/03/19 21:23 85 19 H 127/62 H 97 02/03/19 18:46 98.4 F 122 H 20 H 157/100 H 98 Inital Vital Signs reviewed: Yes General: Well nourished, Well developed, No Acute Distress Head: Normocephalic, Atraumatic Eyes: Perrl, EOMI ENT: Moist mucous membranes, No rhinorrhea Neck: Supple, Nontender Cardiovascular: Regular rate, Regular rhythm, No murmurs Respiratory: No distress, CTA bilaterally, Chest nontender Abdomen: Soft, Nontender, Nondistended, Normal bowel sounds Back: Nontender, Normal Inspection Extremities: Nontender, - - Minimal lower extremity edema. Pulses intact distally. No calf tenderness. Skin: Normal color, No rash Neurological: Alert, Oriented x3, Cranial nerves II-XII grossly intact, Normal Strength, Normal Sensation Psychological: Normal affect, Normal Mood Diagnostic/Tx/Re-eval Abnormal Lab Results 02/03/19 02/03/19 02/03/19 20:25 20:25 20:25 WBC 7.0 RBC 4.84 Hgb 14.1 Hct 42.9 MCV 88.6 MCH 29.1 MCHC 32.9 RDW Std Deviation 39.4 RDW Coeff of Kaity 12.2 Plt Count 217 MPV 10.9 Immature Gran % (Auto) 0.100 Neut % (Auto) 68.3 Lymph % (Auto) 21.7 [place] % (Auto) 7.0 Eos % (Auto) 2.6 Baso % (Auto) 0.3 Absolute Neuts (auto) 4.8 Absolute Lymphs (auto) 1.52 Nucleated RBC % 0 Sodium 141 Potassium 5.1 Chloride 109 H Carbon Dioxide 28.0 Anion Gap 4 L BUN 22 H Creatinine 0.75 Estim Creat Clear Calc 197.79 Est GFR (MDRD) Af Amer 102 Est GFR (MDRD) Non-Af 84 BUN/Creatinine Ratio 29.3 H Glucose 263 H Calcium 10.2 H B-Natriuretic Peptide 5.5 Clinical Impression(s) from Imaging Studies Chest X-Ray 02/03/19 20:40 IMPRESSION: No acute cardiopulmonary process. Electronically Signed: Cody Dan MD (Brooks) at 21:07 EST , Service support , - EKG Initial EKG Interpretation: Sinus Rhythm - Sinus rate of 84, no ST or T wave changes. - Medical Decision Making Patient initially tachycardic in triage however on my eval she was normal rhythm. EKG was sinus normal rhythm. Pulse ox stable. Work-up chest x-ray negative, labs stable including BNP. There is no fluid in the lungs. She remained stable discussed likely viral URI symptoms at this time. She will monitor symptoms, follow-up with PCP. Signs and sent discussed return. All questions were answered. ED Disposition - Plan for ED Patient: Disposition: Home or Assisted Living Diagnosis: Viral URI Instructions: URI, Viral, No Abx (Adult) Referrals: Vincent Negro MD [Primary Care Provider] - 3-5 Days if not improving
[2019-02-03 21:56] VITALS: BP 134/77; PULSE 78; RESP 16; O2SAT 98
== END 2019-02-03 21:58 | disposition home or self-care (01) ==
PROVIDERS: Emergency Provider Emergency Medicine; Family Provider Family Medicine; PCP Family Medicine
DX: J06.9 Acute upper respiratory infection, unspecified (principal); I50.9 Heart failure, unspecified; Z79.899 Other long term (current) drug therapy
CPT/HCPCS: 71046; 80048; 83880; 85025; 93005; 99285; A4216

== ENCOUNTER 2019-04-30 16:19 | Emergency (ER) | payer MEDICARE, MEDICAID, SELFPAY ==
[2019-04-30 16:19] VITALS: BP 155/74; PULSE 88; RESP 18; TEMP 36.7; O2SAT 99
[2019-04-30 16:24] VITALS: BP 155/74; PULSE 88; RESP 18; TEMP 36.7; O2SAT 99; BMI 71.1
--- NOTE | 2019-04-30 16:48 | RAD_ITS ---
STUDY: X-RAY - LEFT HUMERUS REASON FOR EXAM: Female, 59 years old. Pain TECHNIQUE: 2 view(s) of the humerus. COMPARISON: None. FINDINGS: Normal visualized humerus. There is no demonstrated fracture or osseous destructive process. Cannot exclude soft tissue swelling versus patient body habitus. RAD/Humerus min 2 Views IMPRESSION: No acute fracture or dislocation. Electronically Signed: Stuart Manning, at 17:40 EDT Tel , Service support ,
--- NOTE | 2019-04-30 17:18 | ED.VISSUMM ---
- ER Visit Summary Date of Service: 04/30/19 Chief Complaint: Bruising to left arm History of Present Illness: The patient is a [address] Negro. She is left-hand dominant. Reports that yesterday morning she went to get off the bedside commode and had the abrupt onset of a burning sensation in her arm. She reports that 3 hours later she began having bruising in that area. She states that she has a burning pain is 3 out of 10 severity. Is worsened by movement and relieved by rest. She denies any other trauma. No fall or MVA. She is not on anticoagulants. Review of systems: General: No fever, chills, cold sweats. Cardiovascular: No chest pain, palpitations. Respiratory: No cough, shortness of breath, dyspnea on exertion. Gastrointestinal: No abdominal pain, nausea, vomiting, diarrhea, melena, or hematochezia. Genitourinary: No dysuria, frequency, hematuria. Skin: No rash. Neuro: No headache, numbness, weakness. Physical Examination: Vitals: Stable. Afebrile. General: Well-nourished and well-developed. Head: Normocephalic atraumatic. Neck: Supple, no lymphadenopathy. No JVD. Nontender. Cardiovascular: Regular rate and rhythm. No murmurs. Respiratory: No respiratory distress. Clear to auscultation bilaterally. Abdominal: Soft, nontender, nondistended, normal bowel sounds. No guarding, rebound, or peritoneal signs. Back: Nontender. Extremities: Over the proximal third of her left arm anterior medially there is ecchymosis. There is no appreciable hematoma. It is mildly tender to palpation. She has full range of motion without any difficulty. She is neurovascular intact distal to this. Normal sensation light touch. Less than 2-second capillary refill. 2+ radial pulse, no edema. Skin: Normal color, no rash. Neurologic: Alert and oriented ?3. Cranial nerves II through XII are intact. Normal strength and sensation. Psych: Normal affect. Test Results: Left humerus x-ray shows periosteal elevation in the midshaft of her humerus. There is no fracture or cyst/cancer. Emergency Department Course and Treatment: Patient is resting comfortably. She refused pain medications. Given the patient's history and exam I suspect that she has torn part of her biceps muscle. She uses a walker at home and does not want a sling. Treatment Plan: Patient was discussed with Dr. Minaya who reviewed the x-ray as well. She will be discharged with instructions to follow-up with her in 1 week for another exam. She will repeat the x-ray and see how the patient is doing at that time. Return to the emergency department for any worsening symptoms. Disposition: To home in improved and stable condition. Impression: 1. Ecchymosis left arm. This note was generated with [employer] dictation software. It may contain incorrect words, spelling, and punctuation that were not noted in review of the chart prior to signing ED Disposition - Plan for ED Patient: Instructions: Hematoma Referrals: Nadine Minaya DO [STAFF PHYSICIAN] - 1 Week
[2019-04-30 20:32] VITALS: BP 147/78; PULSE 80; RESP 18; O2SAT 96
== END 2019-04-30 20:32 | disposition home or self-care (01) ==
PROVIDERS: Emergency Provider Emergency Medicine; PCP Family Medicine
DX: R23.3 Spontaneous ecchymoses (principal); I10 Essential (primary) hypertension
CPT/HCPCS: 73060; 99284

== ENCOUNTER 2019-11-08 15:16 | Emergency (ER) | payer MEDICARE, MEDICAID, SELFPAY ==
[2019-11-08 15:21] VITALS: BP 120/59; PULSE 66; RESP 17; TEMP 36.7; O2SAT 100; BMI 78.4
[2019-11-08 15:28] VITALS: BP 120/59; PULSE 64; RESP 17; TEMP 36.7; O2SAT 100
--- NOTE | 2019-11-08 15:39 | CT_ITS ---
STUDY: CT ABDOMEN AND PELVIS WITHOUT CONTRAST REASON FOR EXAM: Female, 59 years old. Left flank pain RADIATION DOSAGE (If Supplied By Facility): CTDIvol = ( 34.43 ) mGy, DLP = ( 2030.20 ) mGycm TECHNIQUE: Transaxial images were obtained from the dome of the diaphragm to the symphysis pubis without oral contrast, and without intravenous contrast. Sagittal and coronal images were reconstructed. Individualized dose optimization techniques were used for this CT. COMPARISON: None. FINDINGS: Examination is technically suboptimal due to patient''s large body habitus. Image noise is significantly elevated and detection of subtle small structures is limited. Lung bases are clear. Solid organs are normal. There are no urinary calculi or hydronephrosis. Bladder is normal. There is no intraabdominal free fluid, gas or fluid collections. Lumbar spine is degenerated with severe thecal sac stenosis at L3-L4 and L4-L5. CT/Abdomen/Pelvis without Cont IMPRESSION: 1. No acute findings. 2. 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 Electronically Signed: Za Arrieta, at 17:20 EDT Tel , Service support ,
--- NOTE | 2019-11-08 15:42 | ED.DCSUM_ITS ---
History of Present Illness Informant: Patient Onset: Days Narrative: 59-year-old female with past medical history of hypertension, hyperlipidemia, type 2 diabetes, CHF presents with complaints of left flank pain x4 days. Pain started gradually in the left flank and radiates around to the LLQ. It comes in waves. Today the pain became sharper. The pain worsens with urination and she also has dysuria and feels like she has been voiding a smaller amount than normal. Denies fevers, chills, nausea, vomiting, chest pain, dyspnea, hematuria, diarrhea, or constipation. No history of kidney stones. Previous abdominal surgeries include umbilical hernia x2. <Mikayla Bradley - Last Filed: 11/08/19 17:56> <Jayden Lombardi - Last Filed: 11/08/19 18:50> Chief Complaint: Flank Pain Past Medical History Past Medical History: - - Hypertension, hyperlipidemia, type 2 diabetes, congestive heart failure Surgical History: - - Cholecystectomy, hernia repair, cataract surgery, D&C. Smoking Status: Former smoker - Family History Sibling Family History: Family History (Last Updated 04/09/19 @ 09:10 by Daisy Rockwell) Mother Hypertension CVA (cerebral vascular accident) Diabetes Heart disease Father Hypertension COPD (chronic obstructive pulmonary disease) Sister Hypertension Sister Hypertension Diabetes Brother Hypertension Diabetes Brother Hypertension Diabetes Brother Hypertension CAD (coronary artery disease) History of coronary artery bypass surgery, Onset Age: 48 Diabetes Family History: Reports: - - Patient notes sibling with heart disease, coronary disease, diabetes, stroke. Maternal Family History: Family History (Last Updated 04/09/19 @ 09:10 by Daisy Rockwell) Mother Hypertension CVA (cerebral vascular accident) Diabetes Heart disease Father Hypertension COPD (chronic obstructive pulmonary disease) Sister Hypertension Sister Hypertension Diabetes Brother Hypertension Diabetes Brother Hypertension Diabetes Brother Hypertension CAD (coronary artery disease) History of coronary artery bypass surgery, Onset Age: 48 Diabetes Family History: Reports: - - Patient notes a maternal family history of heart disease, diabetes, stroke. Paternal Family History: Family History (Last Updated 04/09/19 @ 09:10 by Daisy Rockwell) Mother Hypertension CVA (cerebral vascular accident) Diabetes Heart disease Father Hypertension COPD (chronic obstructive pulmonary disease) Sister Hypertension Sister Hypertension Diabetes Brother Hypertension Diabetes Brother Hypertension Diabetes Brother Hypertension CAD (coronary artery disease) History of coronary artery bypass surgery, Onset Age: 48 Diabetes Family History: Reports: - - Patient notes a paternal family history of hypertension. <Mikayla Bradley - Last Filed: 11/08/19 17:56> - Family History Sibling Family History: Family History (Last Updated 04/09/19 @ 09:10 by Daisy Rockwell) Mother Hypertension CVA (cerebral vascular accident) Diabetes Heart disease Father Hypertension COPD (chronic obstructive pulmonary disease) Sister Hypertension Sister Hypertension Diabetes Brother Hypertension Diabetes Brother Hypertension Diabetes Brother Hypertension CAD (coronary artery disease) History of coronary artery bypass surgery, Onset Age: 48 Diabetes Maternal Family History: Family History (Last Updated 04/09/19 @ 09:10 by Daisy Rockwell) Mother Hypertension CVA (cerebral vascular accident) Diabetes Heart disease Father Hypertension COPD (chronic obstructive pulmonary disease) Sister Hypertension Sister Hypertension Diabetes Brother Hypertension Diabetes Brother Hypertension Diabetes Brother Hypertension CAD (coronary artery disease) History of coronary artery bypass surgery, Onset Age: 48 Diabetes Paternal Family History: Family History (Last Updated 04/09/19 @ 09:10 by Daisy Rockwell) Mother Hypertension CVA (cerebral vascular accident) Diabetes Heart disease Father Hypertension COPD (chronic obstructive pulmonary disease) Sister Hypertension Sister Hypertension Diabetes Brother Hypertension Diabetes Brother Hypertension Diabetes Brother Hypertension CAD (coronary artery disease) History of coronary artery bypass surgery, Onset Age: 48 Diabetes <Jayden Lombardi - Last Filed: 11/08/19 18:50> - Allergies and Home Meds Allergies/Adverse Reactions: Allergies vancomycin Allergy (Verified 11/08/19 15:21) Rash atorvastatin Adverse Reaction (Severe, Verified 11/08/19 15:21) myalgias amlodipine Adverse Reaction (Verified 11/08/19 15:21) Unknown atenolol Adverse Reaction (Verified 11/08/19 15:21) Unknown bupropion HCl [From Wellbutrin] Adverse Reaction (Verified 11/08/19 15:21) Unknown fluoxetine HCl [From Prozac] Adverse Reaction (Verified 11/08/19 15:21) Unknown meloxicam [From Mobic] Adverse Reaction (Verified 11/08/19 15:21) Unknown metoprolol Adverse Reaction (Verified 11/08/19 15:21) Unknown pregabalin [From Lyrica] Adverse Reaction (Verified 11/08/19 15:21) Unknown quetiapine fumarate [From Seroquel] Adverse Reaction (Verified 11/08/19 15:21) Unknown quinapril HCl [From Accupril] Adverse Reaction (Verified 11/08/19 15:21) Unknown risperidone Adverse Reaction (Verified 11/08/19 15:21) Unknown rofecoxib [From Vioxx] Adverse Reaction (Verified 11/08/19 15:21) Unknown sitagliptin phosphate [From Januvia] Adverse Reaction (Verified 11/08/19 15:21) Unknown venlafaxine HCl [From Effexor] Adverse Reaction (Verified 11/08/19 15:21) Unknown Primary Care Physician: [facility] Doctor,Out of [NON-STAFF] - Review of Systems General: Denies: Chills, Fever, Sweats Eyes: Denies: Visual changes - bilaterally, Diplopia ENT: Denies: Rhinorrhea, Sore throat Cardiovascular: Denies: Chest pain, Palpitations Respiratory: Denies: Dyspnea, Cough, Dyspnea on exertion Gastrointestinal: Reports: Abdominal pain. Denies: Nausea, Vomiting, Diarrhea, Constipation, Melena, Hematochezia Genitourinary: Reports: Dysuria. Denies: Hematuria, Frequency Musculoskeletal: Reports: Back pain. Denies: Myalgias Skin: Denies: Rash Neurological: Denies: Headache, Weakness <Mikayla Bradley - Last Filed: 11/08/19 17:56> Physical Exam Vital Signs/Narrative: Vital Signs Temp Pulse Resp BP Pulse Ox 11/08/19 15:28 98.1 F 64 17 120/59 L 100 11/08/19 15:21 98.0 F 66 17 120/59 L 100 Inital Vital Signs reviewed: Yes General: Well nourished, Well developed, No Acute Distress Head: Normocephalic, Atraumatic Eyes: EOMI ENT: Moist mucous membranes, No rhinorrhea Neck: Supple, Nontender Cardiovascular: Regular rate, Regular rhythm, No murmurs Respiratory: No distress, CTA bilaterally, Chest nontender Abdomen: Soft, Nontender, Nondistended, Normal bowel sounds Back: Normal Inspection, CVA tenderness - mild left CVA tenderness, - Skin: Normal color Neurological: Alert, Oriented x3, Cranial nerves II-XII grossly intact, Normal Strength, Normal Sensation Psychological: Normal affect, Normal Mood <Mikayla Bradley - Last Filed: 11/08/19 17:56> Vital Signs/Narrative: Vital Signs Temp Pulse Resp BP Pulse Ox 11/08/19 16:48 97.9 F 63 17 145/81 H 98 11/08/19 15:28 98.1 F 64 17 120/59 L 100 11/08/19 15:21 98.0 F 66 17 120/59 L 100 <Jayden Lombardi - Last Filed: 11/08/19 18:50> Diagnostic/Tx/Re-eval Clinical Impression(s) from Imaging Studies Abdomen/Pelvis CT 11/08/19 15:39 IMPRESSION: 1. No acute findings. 2. 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 Electronically Signed: Mariaelenarené Berny, at 17:20 EDT Tel , Service support , Laboratory Data 11/08/19 11/08/19 11/08/19 16:00 16:05 16:05 WBC 4.4 RBC 4.38 Hgb 13.1 Hct 39.7 MCV 90.6 MCH 29.9 MCHC 33.0 RDW Std Deviation 41.5 RDW Coeff of Kaity 12.5 Plt Count 202 MPV 10.3 Immature Gran % (Auto) 0.500 Neut % (Auto) 62.1 Lymph % (Auto) 23.6 [place] % (Auto) 9.5 Eos % (Auto) 4.1 Baso % (Auto) 0.2 Absolute Neuts (auto) 2.7 Absolute Lymphs (auto) 1.04 Nucleated RBC % 0 Sodium 142 Potassium 3.9 Chloride 105 Carbon Dioxide 32.0 Anion Gap 5 BUN 22 H Creatinine 0.66 Estim Creat Clear Calc 255.14 Est GFR (MDRD) Af Amer 117 Est GFR (MDRD) Non-Af 97 BUN/Creatinine Ratio 33.2 H Glucose 121 H Calcium 11.1 H Urine Color Yellow Urine Clarity Clear Urine pH 6.0 Ur Specific [place] 1.015 Urine Protein Negative Urine Glucose (UA) Normal Urine Ketones Negative Urine Occult Blood 25 H Urine Nitrite Negative Urine Bilirubin Negative Urine Urobilinogen Normal Ur Leukocyte Esterase Negative Urine RBC 0-5 SEEN Urine WBC 0 SEEN Ur Squamous Epith Cells 0-5 SEEN Urine Bacteria 0 SEEN Urine Mucus 0 SEEN - Medical Decision Making Patient appears well nontoxic. Vital signs within normal limits. General medical exam showed mild left CVA tenderness, otherwise unremarkable. Labs show no leukocytosis and are otherwise unremarkable. Urine has occult blood but no infection. CT abdomen/pelvis shows no acute process to explain her pain. Patient may have already passed a kidney stone. She is feeling improved after IV Toradol and is agreeable to follow-up with her PCP. Discussed return precautions. She was agreeable and discharged home in stable condition. <Mikayla Bradley - Last Filed: 11/08/19 17:56> - Medical Decision Making Seen and evaluated independently and in conjunction with physician assistant import manager. Agree with notes above unless documented otherwise. Patient morbidly obese, well-appearing, mild left CVA tenderness. She states that she had urinary symptoms that started prior to gradual onset of left flank pain that is mostly in her back or radiates a little around to the left lower quadrant. CT showing no acute abnormality. It is conceivable that she had a stone but passed it, she had a trace amount of blood in the urine but no infection. At this time she is feeling better after treatment here, will discharge her home to follow-up or return if worse. No specific outpatient treatment needed at this time. <Jayden Lombardi - Last Filed: 11/08/19 18:50> ED Disposition <Mikayla Bradley - Last Filed: 11/08/19 17:56> <Jayden Lombardi - Last Filed: 11/08/19 18:50> - Plan for ED Patient: Disposition: Home or Assisted Living Diagnosis: Flank pain Instructions: ED Flank Pain Uncertain Cause Referrals: [facility] Doctor,Out of [NON-STAFF] -
[2019-11-08 16:18] LABS: Absolute Lymphocyte Count 1.04 X10^3/uL (0.83-4.51); Absolute Neutrophil Count 2.7 X10^3/uL (2.0-7.7); Basophil# 0.01 X10^3/uL; Basophil% 0.2 % (0-1); Eosinophil# 0.18 X10^3/uL; Eosinophils% 4.1 % (0-5); Hematocrit 39.7 % (37-47); Hemoglobin 13.1 g/dL (12.0-15.0); Lymphocyte # 1.04 X10^3/ul (4.0); Lymphocyte % 23.6 % (19-41); Mean Corpuscular Hgb 29.9 pg (27.0-32.0); Mean Corpuscular Volume 90.6 fL (81-99); Mean Platelet Vol. 10.3 fl (6.2-12.0); Monocyte# 0.42 X10^3/uL; Monocyte% 9.5 % (0-10); NRBC Flagged by Analyzer 0 % (0-5); Neutrophil # 2.74 X10^3/uL (2.7-7.7); Neutrophil % 62.1 % (47-70); Platelet Count 202 K/mm3 (150-450); RBC Distribution Width CV 12.5 % (11.6-14.6); RBC Distribution Width SD 41.5 fl (35.1-43.9); Red Blood Count 4.38 M/mm3 (4.2-5.4); White Blood Count 4.4 K/mm3 (4.4-11.0)
[2019-11-08 16:24] LABS: Bacteria 0 SEEN /hpf (None Seen); Mucous, Urine 0 SEEN /hpf (<or=2+); White Blood Cells 0 SEEN /hpf (0-5)
[2019-11-08 16:31] LABS: Anion Gap 5 (5-15); BUN 22 mg/dL (7-18); BUN/Creat Ratio 33.2 RATIO (10-20); Calcium,Total 11.1 mg/dL (8.5-10.1); Chloride 105 mmol/L (98-107); Creatinine, Serum 0.66 mg/dL (0.55-1.02); EST Glomerular Filtration Rate 97 mL/min (>60); Est Glom Filt Rate - Afr Amer 117 mL/min (>60); Estimated Creatinine Clearance 255.14 ml/min; Glucose 121 mg/dL (74-106); Potassium 3.9 mmol/L (3.5-5.1); Sodium Level 142 mmol/L (136-145)
[2019-11-08 16:32] LABS: Color, Urine Yellow (Yellow); Glucose, Dipstick Normal (Normal); Ketone-Dipstick Negative (Negative); Leukocyte Esterase-Dipstick Negative /ul (Negative); Nitrite-Dipstick Negative (Negative); Occult Blood-Urine 25 /ul (Negative); Protein-Dipstick Negative (Negative); Specific Gravity, Urine 1.015 (1.002-1.030); Urine Bilirubin Dipstick Negative (Negative); Urine Clarity Clear (Clear); Urine Urobilinogen Normal (Normal)
[2019-11-08 16:40] LABS: Red Blood Cells-Urine 0-5 SEEN /hpf (0-5); Squamous Epithelial Cells - UA 0-5 SEEN /hpf (5-10)
[2019-11-08] MEDS: Ketorolac 15 MG/ML Vial IM (16:40)
[2019-11-08 16:48] VITALS: BP 145/81; PULSE 63; RESP 17; TEMP 36.6; O2SAT 98
== END 2019-11-08 20:23 | disposition home or self-care (01) ==
PROVIDERS: Emergency Provider Physician Assistant
DX: R10.9 Unspecified abdominal pain (principal); I11.0 Hypertensive heart disease with heart failure; I50.9 Heart failure, unspecified; E78.5 Hyperlipidemia, unspecified; E11.9 Type 2 diabetes mellitus without complications; Z79.4 Long term (current) use of insulin; Z79.899 Other long term (current) drug therapy; Z87.891 Personal history of nicotine dependence
CPT/HCPCS: 74176; 80048; 81001; 85025; 96372; 99285; A4216

== ENCOUNTER 2019-11-13 16:05 | Emergency (ER) | payer MEDICARE, MEDICAID, SELFPAY ==
[2019-11-13 16:07] VITALS: BP 146/59; PULSE 86; RESP 24; TEMP 37; O2SAT 98; BMI 78.4
[2019-11-13 16:14] VITALS: O2SAT 98
--- NOTE | 2019-11-13 16:14 | EKG12_ITS ---
Test Reason : Blood Pressure : / mmHG Vent. Rate : 077 BPM Atrial Rate : 077 BPM P-R Int : 142 ms QRS Dur : 086 ms QT Int : 376 ms P-R-T Axes : 057 013 061 degrees QTc Int : 425 ms Normal sinus rhythm Normal ECG Confirmed by CARLOS SIMS, LESTER ([id number]), publishing editor GRANT SAGASTUME ([id number]) on 11/20/2019 12:50:20 P M Referred By: RUFINO Confirmed By:MARCELLE GONZALEZ MD
--- NOTE | 2019-11-13 16:25 | ED.DCSUM_ITS ---
History of Present Illness Chief Complaint: Edema Informant: Patient Narrative: Patient is a 59-year-old female with a past medical history of CHF, diabetes, hypertension, and history of DVT who presents to the emergency department for increased weight gain, bilateral leg swelling and some shortness of breath. She feels the shortness of breath at rest. She states that this has been ongoing for the past couple of weeks but over the past 24 hours she has gained close to 13 pounds. She does do telehealth and they monitor her weight frequently. She has had a mild cough that is been nonproductive. She denies any fevers or chills. No associated chest pain. She feels like her abdomen is mildly swollen as well. Denies any abdominal pain. Her legs have been swollen but no significant pain with them. She is on Lasix and states she still has been urinating. Denies any nausea/vomiting or diarrhea. Has had this happen before in the past but is been many years. She is a former smoker. She does not wear any oxygen at home. She denies any history of pulmonary embolism. She not on any anticoagulation now. No heart attacks or strokes. Past Medical History - Allergies and Home Meds Allergies/Adverse Reactions: Allergies vancomycin Allergy (Verified 11/13/19 16:05) Rash atorvastatin Adverse Reaction (Severe, Verified 11/13/19 16:05) myalgias amlodipine Adverse Reaction (Verified 11/13/19 16:05) Unknown atenolol Adverse Reaction (Verified 11/13/19 16:05) Unknown bupropion HCl [From Wellbutrin] Adverse Reaction (Verified 11/13/19 16:05) Unknown fluoxetine HCl [From Prozac] Adverse Reaction (Verified 11/13/19 16:05) Unknown meloxicam [From Mobic] Adverse Reaction (Verified 11/13/19 16:05) Unknown metoprolol Adverse Reaction (Verified 11/13/19 16:05) Unknown pregabalin [From Lyrica] Adverse Reaction (Verified 11/13/19 16:05) Unknown quetiapine fumarate [From Seroquel] Adverse Reaction (Verified 11/13/19 16:05) Unknown quinapril HCl [From Accupril] Adverse Reaction (Verified 11/13/19 16:05) Unknown risperidone Adverse Reaction (Verified 11/13/19 16:05) Unknown rofecoxib [From Vioxx] Adverse Reaction (Verified 11/13/19 16:05) Unknown sitagliptin phosphate [From Januvia] Adverse Reaction (Verified 11/13/19 16:05) Unknown venlafaxine HCl [From Effexor] Adverse Reaction (Verified 11/13/19 16:05) Unknown Primary Care Physician: Care Physician,No Primary [Primary Care Provider] - 2 Days Prior records reviewed: Yes Past Medical History: - - CHF, diabetes, hypertension, DVT Surgical History: - - Cholecystectomy, hernia repair, cataract surgery, D&C. Smoking Status: Former smoker - Family History Sibling Family History: Family History (Last Updated 04/09/19 @ 09:10 by Daisy Rockwell) Mother Hypertension CVA (cerebral vascular accident) Diabetes Heart disease Father Hypertension COPD (chronic obstructive pulmonary disease) Sister Hypertension Sister Hypertension Diabetes Brother Hypertension Diabetes Brother Hypertension Diabetes Brother Hypertension CAD (coronary artery disease) History of coronary artery bypass surgery, Onset Age: 48 Diabetes Family History: Reports: - - Patient notes sibling with heart disease, coronary disease, diabetes, stroke. Maternal Family History: Family History (Last Updated 04/09/19 @ 09:10 by Daisy Rockwell) Mother Hypertension CVA (cerebral vascular accident) Diabetes Heart disease Father Hypertension COPD (chronic obstructive pulmonary disease) Sister Hypertension Sister Hypertension Diabetes Brother Hypertension Diabetes Brother Hypertension Diabetes Brother Hypertension CAD (coronary artery disease) History of coronary artery bypass surgery, Onset Age: 48 Diabetes Family History: Reports: - - Patient notes a maternal family history of heart disease, diabetes, stroke. Paternal Family History: Family History (Last Updated 04/09/19 @ 09:10 by Daisy Rockwell) Mother Hypertension CVA (cerebral vascular accident) Diabetes Heart disease Father Hypertension COPD (chronic obstructive pulmonary disease) Sister Hypertension Sister Hypertension Diabetes Brother Hypertension Diabetes Brother Hypertension Diabetes Brother Hypertension CAD (coronary artery disease) History of coronary artery bypass surgery, Onset Age: 48 Diabetes Family History: Reports: - - Patient notes a paternal family history of hypertension. Review of Systems All systems negative except as indicated General: Denies: Chills, Fever, Sweats Eyes: Denies: Visual changes - bilaterally, Diplopia ENT: Denies: Rhinorrhea, Sore throat Cardiovascular: Denies: Chest pain, Palpitations Respiratory: Reports: Dyspnea, Cough. Denies: Sputum Gastrointestinal: Denies: Abdominal pain, Nausea, Vomiting, Diarrhea Genitourinary: Denies: Dysuria, Hematuria, Frequency Musculoskeletal: Reports: Swelling. Denies: Back pain, Extremity Pain Skin: Denies: Rash, Wounds Neurological: Denies: Headache, Weakness, Numbness Physical Exam Vital Signs/Narrative: Vital Signs Temp Pulse Resp BP Pulse Ox 11/13/19 16:07 98.6 F 86 24 H 146/59 H 98 Inital Vital Signs reviewed: Yes General: Well nourished, Well developed, No Acute Distress Head: Normocephalic, Atraumatic Eyes: Perrl, EOMI ENT: Moist mucous membranes, No rhinorrhea Neck: Supple, Nontender Cardiovascular: Regular rate, Regular rhythm, No murmurs Respiratory: No distress, CTA bilaterally, Chest nontender Abdomen: Soft, Nontender, Nondistended, Normal bowel sounds Back: Nontender, Normal Inspection Extremities: Nontender, Edema - Bilateral peripheral edema of lower extremities. Negative for: Calf Tenderness Skin: Normal color, No rash Neurological: Alert, Oriented x3, Cranial nerves II-XII grossly intact, Normal Strength, Normal Sensation Psychological: Normal affect, Normal Mood Diagnostic/Tx/Re-eval - EKG Initial EKG Interpretation: - - Rate of 77 bpm and normal sinus rhythm. Normal intervals. Normal axis. No ST elevations or depressions appreciated. No T wave abnormalities. Prior EKG for comparison was performed on February [id number] which is similar in appearance. - Medical Decision Making Patient presents to the emergency department for increased weight gain, leg swelling and shortness of breath. Upon arrival to the emergency department vital signs within normal limits. She does have pitting edema of the lower extremities. She is in no respiratory distress. Will check basic lab work, EKG and chest x-ray. No concern for PE at this time given the fact she is more concerned about the weight gain with the shortness of breath. Patient's lab work did not reveal any significant acute abnormality. BMP was within normal limits. X-ray did not reveal any pulmonary vascular congestion or pneumonia. Troponin is negative. EKG not show any signs of ischemia or arrhythmia. Patient was able to ambulate around the ED without any significant shortness of breath and did not desaturate. She is given a dose of her home L asix here in the ED given the fact she states she is had a lot of water weight gain. Otherwise patient can follow-up with her PCP as an outpatient. Warning signs and symptoms for which to return to the ED are reviewed with her. She understands and is agreeable with this plan. Will discharge home in stable condition. ED Disposition - Plan for ED Patient: Disposition: Home or Assisted Living Diagnosis: Dyspnea, Peripheral edema Instructions: ED Dyspnea, ED Peripheral Edema, Bilateral Referrals: Care Physician,No Primary [Primary Care Provider] - 2 Days
--- NOTE | 2019-11-13 17:00 | RAD_ITS ---
STUDY: X-RAY CHEST REASON FOR EXAM: Female, 59 years old. Edema to legs TECHNIQUE: Single AP portable view of the chest. COMPARISON: 02/03/2019 FINDINGS: EKG leads overlie the chest The lungs are clear and expanded. There is no demonstrated pleural abnormality. Normal size heart. Normal mediastinum and erich. Normal visualized pulmonary arteries. Normal visualized aortic arch and descending thoracic aorta. There are diffuse degenerative changes of the visualized thoracic spine. There is degenerative osteoarthritis of the bilateral shoulders. There is no demonstrated abnormality of the visualized soft tissue structures of the upper abdomen. RAD/Chest 1 View (Portable) IMPRESSION: No acute pulmonary process Electronically Signed: Jeovanny Livingston MD at 17:18 EDT , Service support ,
[2019-11-13 17:02] LABS: Absolute Lymphocyte Count 1.03 X10^3/uL (0.83-4.51); Absolute Neutrophil Count 3.5 X10^3/uL (2.0-7.7); Basophil# 0.01 X10^3/uL; Basophil% 0.2 % (0-1); Eosinophil# 0.21 X10^3/uL; Hemoglobin 12.3 g/dL (12.0-15.0); Lymphocyte # 1.03 X10^3/ul (4.0); Lymphocyte % 19.8 % (19-41); Mean Corp Hgb Conc 32.4 g/dL (32-36); Mean Corpuscular Hgb 29.5 pg (27.0-32.0); Mean Corpuscular Volume 91.1 fL (81-99); Mean Platelet Vol. 10.7 fl (6.2-12.0); Monocyte# 0.47 X10^3/uL; Monocyte% 9.1 % (0-10); NRBC Flagged by Analyzer 0 % (0-5); Neutrophil # 3.46 X10^3/uL (2.7-7.7); Neutrophil % 66.7 % (47-70); Platelet Count 199 K/mm3 (150-450); RBC Distribution Width CV 12.5 % (11.6-14.6); RBC Distribution Width SD 41.5 fl (35.1-43.9); Red Blood Count 4.17 M/mm3 (4.2-5.4); White Blood Count 5.2 K/mm3 (4.4-11.0)
[2019-11-13 17:38] LABS: BNP,B-Type NATRIURETIC PEPTIDE 22.3 pg/mL (0-100)
[2019-11-13 18:31] LABS: AST(SGOT) 17 U/L (15-37); Alanine Aminotransfer ALT/SGPT 21 U/L (13-56); Albumin, Serum 3.2 g/dL (3.2-5.0); Alkaline Phosphatase 107 U/L (45-117); Anion Gap 5 (5-15); BUN 18 mg/dL (7-18); BUN/Creat Ratio 28.5 RATIO (10-20); Bilirubin, Direct 0.12 mg/dL (0.00-0.30); Calcium,Total 10.5 mg/dL (8.5-10.1); Chloride 107 mmol/L (98-107); Creatinine, Serum 0.63 mg/dL (0.55-1.02); EST Glomerular Filtration Rate 102 mL/min (>60); Est Glom Filt Rate - Afr Amer 124 mL/min (>60); Estimated Creatinine Clearance 267.45 ml/min; Globulin 3.1 g/dL (2.2-4.2); Glucose 105 mg/dL (74-106); Magnesium 2.3 mg/dL (1.6-2.6); Potassium 4.4 mmol/L (3.5-5.1); Protein, Total 6.3 g/dL (6.4-8.2); Sodium Level 143 mmol/L (136-145)
[2019-11-13 19:41] VITALS: BP 123/58; PULSE 79; RESP 16; O2SAT 99
[2019-11-13 19:43] VITALS: BP 123/58; PULSE 79; RESP 16; O2SAT 98
[2019-11-13] MEDS: Furosemide 40 MG Tablet PO (20:07)
[2019-11-13 21:17] VITALS: RESP 16
== END 2019-11-13 21:29 | disposition home or self-care (01) ==
PROVIDERS: Emergency Provider Emergency Medicine
DX: R60.0 Localized edema (principal); R06.00 Dyspnea, unspecified; I11.0 Hypertensive heart disease with heart failure; I50.9 Heart failure, unspecified; E11.9 Type 2 diabetes mellitus without complications; Z79.4 Long term (current) use of insulin; Z79.899 Other long term (current) drug therapy; Z86.718 Personal history of other venous thrombosis and embolism; Z87.891 Personal history of nicotine dependence
CPT/HCPCS: 71045; 80048; 80076; 83735; 83880; 84484; 85025; 93005; 99285; A4216

== ENCOUNTER 2020-07-13 08:00 | Outpatient (RCR) | payer MEDICARE, MEDICAID, SELFPAY ==
[2020-06-29 07:59] VITALS: BP 163/64; PULSE 87; TEMP 36.3; BMI 76.7
--- NOTE | 2020-06-29 08:53 | PCM.WC.HP ---
History of Present Illness Date of Service: 06/29/20 Chief Complaint: Pressure ulceration of the right upper postero-medial thigh History of Wound: This is a morbidly obese, diabetic, 60-year-old female who presents with a pressure ulceration on the right upper postero-medial thigh. According the patient, it has been present for approximately 1 month. Patient is morbidly obese, with a BMI of 76.7. She stands 4 feet 11 inches in height, and weighs 380 pounds. Her mobility is limited, and she ambulates with the assistance of a walker. She spends a good part of each day sitting idly. She also sleeps in a recliner. She depends on her wheelchair to be out and about. She does not have a cushion for her wheelchair. She has recently been placing Neosporin ointment topically on the ulceration of the right upper postero-medial thigh, which is a stage II pressure ulceration. [facility] Medical History (Updated 06/29/20 @ 08:[address] Acosta Youssef MD) Anxiety and depression Cellulitis of multiple sites of buttock Chronic back pain COPD (chronic obstructive pulmonary disease) Diabetes mellitus, type II Esophageal reflux Essential hypertension Exertional dyspnea Heart failure History of DVT (deep vein thrombosis) Immobility Left leg cellulitis Lumbosacral neuritis Mixed hyperlipidemia Morbid obesity JEREMÍAS treated with BiPAP Peripheral neuropathy Pulmonary hypertension Sepsis SVT (supraventricular tachycardia) Home Medications duloxetine 60 mg PO DAILY 12/02/14 [History Last Taken 02/03/19 60 mg] spironolactone 25 mg PO DAILY 12/02/14 [History Last Taken 02/03/19 25 mg] aripiprazole 10 mg PO QHS 10/21/17 [History Last Taken 02/02/19] cetirizine 10 mg PO DAILY PRN PRN 06/13/18 [History Last Taken 06/13/18] cholecalciferol (vitamin D3) 50 mcg (2,000 unit) capsule 5,000 unit PO DAILY 04/09/19 [History Last Taken Unknown] pravastatin 20 mg tablet 20 mg PO QHS 04/09/19 [History Last Taken Unknown] trazodone 50 mg tablet 100 mg PO QHS tab 04/09/19 [History Last Taken Unknown] famotidine 40 mg PO DAILY 11/08/19 [History Last Taken Unknown] furosemide 80 mg PO DAILY 11/08/19 [History Last Taken Unknown] insulin glargine 25 unit SQ BID 11/08/19 [History Last Taken Unknown] acetaminophen 650 mg PO TID PRN PRN 06/29/20 [History Last Taken Unknown] hydrocodone-acetaminophen [[place]] 1 tab PO BID PRN 06/29/20 [History Last Taken Unknown] metformin 500 mg PO DAILY 06/29/20 [History Last Taken Unknown] methocarbamol 500 mg PO BID PRN PRN 06/29/20 [History Last Taken Unknown] potassium chloride 10 meq PO DAILY 06/29/20 [History Last Taken Unknown] Allergy/AdvReac Type Severity Reaction Status Date / Time vancomycin Allergy Rash Verified 11/13/19 16:05 atorvastatin AdvReac Severe myalgias Verified 11/13/19 16:05 amlodipine AdvReac Unknown Verified 11/13/19 16:05 atenolol AdvReac Unknown Verified 11/13/19 16:05 bupropion HCl AdvReac Unknown Verified 11/13/19 16:05 [From Wellbutrin] fluoxetine HCl [From Prozac] AdvReac Unknown Verified 11/13/19 16:05 meloxicam [From Mobic] AdvReac Unknown Verified 11/13/19 16:05 metoprolol AdvReac Unknown Verified 11/13/19 16:05 pregabalin [From Lyrica] AdvReac Unknown Verified 11/13/19 16:05 quetiapine fumarate AdvReac Unknown Verified 11/13/19 16:05 [From Seroquel] quinapril HCl [From Accupril] AdvReac Unknown Verified 11/13/19 16:05 risperidone AdvReac Unknown Verified 11/13/19 16:05 rofecoxib [From Vioxx] AdvReac Unknown Verified 11/13/19 16:05 sitagliptin phosphate AdvReac Unknown Verified 11/13/19 16:05 [From Januvia] venlafaxine HCl AdvReac Unknown Verified 11/13/19 16:05 [From Effexor] Family History (Updated 04/09/19 @ 09:10 by Daisy Rockwell) Mother Hypertension CVA (cerebral vascular accident) Diabetes Heart disease Father Hypertension COPD (chronic obstructive pulmonary disease) Sister Hypertension Sister Hypertension Diabetes Brother Hypertension Diabetes Brother Hypertension Diabetes Brother Hypertension CAD (coronary artery disease) History of coronary artery bypass surgery, Onset Age: 48 Diabetes Surgical History (Updated 11/08/19 @ 15:44 by DEBRA Haq) History of hernia repair History of laparoscopic cholecystectomy History of left heart catheterization (LHC) (~05/23/12) Social History (Updated 04/09/19 @ 09:11 by Daisy Rockwell) Smoking Status: Former smoker alcohol intake: never substance use type: does not use Vital Signs Vital Signs Vital Signs: 06/29/20 07:59 Temperature 97.4 F L Temperature Source Temporal Pulse Rate 87 Blood Pressure 163/64 H Blood Pressure Mean 97 Blood Pressure Source Monitor Blood Pressure Position Sitting Blood Pressure Location Right Arm Physical Exam Const alert, oriented x3, no apparent distress and well nourished Constitutional Narrative: The patient appears morbidly obese General Appearance: cooperative and well developed Orientation / Consciousness: awake, oriented to person, oriented to place and oriented to time Nutritional Appearance: morbidly obese HEENT normocephalic, EAC's normal and moist oral mucous membranes Head and Scalp: normal to inspection, normocephalic and atraumatic External Ear: external ears normal Eyes PERRL and EOMs intact bilaterally General Eye: normal appearance of both eyes Pupil: PERRL Neck supple and no JVD General: trachea midline Resp normal respiratory effort and no use of accessory muscles Effort and Inspection: able to speak in complete sentences Extremity no calf tenderness Extremity Narrative: Mild bilateral lower extremity edema is noted. A stage II pressure ulceration is noted on the right upper, postero-medial thigh. A superficial eschar is noted. There is no sign of infection or cellulitis. A moderate amount of bioburden is present. Dimensions are documented elsewhere. Patient's extremities are extremely obese and oversized. General Extremity: edema bilateral; Negative for clubbing or cyanosis Neuro oriented x3 and CN's II-XII intact bilaterally Speech: speech normal Psych mental status grossly normal Appearance: grossly normal and appropriate Attitude: calm Activity / Motor Behavior: appropriate eye contact Speech: normal speech Thought Process: normal thought process Thought Content: normal thought content Attention / Concentration: attention grossly intact Debridement Note Debridement Note Post-Debridement Measurements and Additional Note: Post-Debridement Measurements/Treatment ELIZABET - Nurse 1 - General Ulcer Assessment Start: 06/22/20 14:56 Freq: Status: Active Protocol: WC.LOWEXT Activity Type Activity Date Activity User E-Sign Co-Sign Detail Recorded Client Recorded Date Recorded By Document 06/29/20 07:59 RAQUEL [id number] 06/29/20 08:16 KR 06/29/20 07:59 WC - Today's Visit Information Type of service Initial Visit Arrival Mode Wheelchair Patient Identification Verified (Name & Yes ) Finger Stick Blood Sugar(mg/dl) (if 132 indicated): Blood Sugar Stated by Patient Height and Weight Height 4 ft 11 in Weight 380 lb Weight in Pounds 380.0 lbs Body Mass Index (BMI) 76.7 BMI Classification Obese BSA - Jamin 2.42 Vital Signs Temperature (97.8 F-99.1 F) 97.4 F L Temperature Source Temporal Pulse Rate (60-100) 87 Pulse Location Monitor Blood Pressure (90/60-120/80) 163/64 H Blood Pressure Mean 97 Source Monitor Position Sitting Blood Pressure Location Right Arm History Since Last Visit- (Skip if this is Patient's initial visit) Have you changed medications since your No last visit? Any new allergies or adverse reactions No Had a fall/change in ADL's that may No increase risk of falls Signs or symptoms of abuse and/or No neglect since last visit Have you been in the hospital since your No last visit? Has dressing in place as prescribed No Has compression in place as prescribed N/A Has offloadiing in place as prescribed N/A Experienced any changes in pain level or No management Left Footwear Regular Shoe Right Footwear Regular Shoe Pain Scale: 0-10 Numeric Is Patient Pain Free? Yes Lower Extremity Assessment/ Foot Assessment/ Toe Nail Assessment Right -Popliteal Doppler Multiphasic -Posterior Tibial Doppler Multiphasic -Dorsalis Pedis Doppler Multiphasic -Extremity Color Normal -Hair Growth on Legs Yes -Hair Growth on Toes No -Temperature of Extremity Warm -Capillary Refill Less than 3 Seconds -Dependent Rubor No -Blanched when Elevated N/A -Lipodermatosclerosis No -Other Deformity No -Prior Foot Ulcer No -Charcot Joint No -Prior Amputation No -Toe Nail Assessment Not Applicable -Thick No -Discolored No -Deformed No -Improper Length & Hygeine No Left -Popliteal Doppler Multiphasic -Posterior Tibial Doppler Multiphasic -Dorsalis Pedis Doppler Multiphasic -Extremity Color Normal -Hair Growth on Legs Yes -Hair Growth on Toes No -Temperature of Extremity Warm -Dependent Rubor No -Blanched when Elevated N/A -Lipodermatosclerosis No -Other Deformity No -Prior Foot Ulcer No -Charcot Joint No -Prior Amputation No -Thick No -Discolored No -Deformed No -Improper Length & Hygeine No Neuropathy Assessment Feet - Top Side and Bottom <Entered> (a) (a) 1 - + 2 - + 3 - + 4 - + 5 - + WC - Nurse 1 - General Ulcer Measurement Start: 06/22/20 14:56 Freq: Status: Active Protocol: Activity Type Activity Date Activity User E-Sign Co-Sign Detail Recorded Client Recorded Date Recorded By Document 06/29/20 07:59 RAQUEL [id number] 06/29/20 08:16 RAQUEL 06/29/20 07:59 Wound Center Nurse 1 #1 Right Upper Post Thigh -Current Size (cm) - Length 1 -Current Size (cm) - Width 1 -Current Size (cm) - Depth 0.2 -Total Square Cm 1 -Exudate Amt None Present -Wound Margin Distinct, Outline Attached -Granulation Amt None Present (0 %) -Necrosis Amt None Present (0 %) -Texture (Yoon-wound Skin Appearance) Assessed, Scarring -Moisture (Yoon-wound Skin Appearance) Assessed,Dry/ Scaly -Color (Yoon-wound Skin Appearance) Assessed, Hemosiderin Staining -Temperature (Yoon-wound Skin No Abnormality Appearance) (Pt Warm) -Ulcer Cleansing Rinsed/ Irrigated with Saline -Foul Odor after Cleansing No -Anesthetic Used 5% Lidocaine Gel Right Calf (cm) 55.6 Right Ankle (cm) 30.5 Left Calf (cm) 59.4 Left Ankle (cm) 33.4 Wound debrided: Upper postero-medial thigh Laterality: Right Wound Grade/Stage: Stage II Type of Debridement: Excisional debridement Anesthesia Used: 5% Lidocaine Gel Depth: Down to and including healthy tissue and in the subcutaneous layer Percentage of wound debrided: 100 Instrument Used: 5mm curette Tissue Removed: Bioburden and eschar Severity: Fat Layer Exposed Amount of bleeding with debridement: Mild Bleeding Controlled with: Compression and gauze Patient tolerated procedure: Patient tolerated procedure well Assessment & Plan Assessment/Plan (1) Mixed hyperlipidemia: (2) COPD (chronic obstructive pulmonary disease): (3) SVT (supraventricular tachycardia): (4) Essential hypertension: (5) JEREMÍAS treated with BiPAP: (6) Exertional dyspnea: (7) Pulmonary hypertension: (8) Heart failure: QUALIFIERS: Heart failure type: diastolic Heart failure chronicity: chronic Qualified Code(s): I50.32 - Chronic diastolic (congestive) heart failure (9) Diabetes mellitus, type II: QUALIFIERS: Diabetes mellitus technician terminal and repeater insulin use: with technician terminal and repeater use Diabetes mellitus complication status: with unspecified complications Qualified Code(s): E11.8 - Type 2 diabetes mellitus with unspecified complications; Z79.4 - half-way (current) use of insulin (10) Esophageal reflux: QUALIFIERS: Esophagitis presence: esophagitis presence not specified Qualified Code(s): K21.9 - Gastro-esophageal reflux disease without esophagitis (11) Morbid obesity: (12) Peripheral neuropathy: (13) Immobility: (14) Pressure ulcer of upper thigh: PLAN: This is a 60-year-old morbidly obese diabetic female who presents with a stage II pressure ulceration on the right upper, postero-medial thigh. It has been present for approximately 1 month, according to the patient. Pressure appears to be the etiology, though the site of the ulceration is an intertriginous zone, subject to body heat and perspiration. We have discussed the appropriate measures for management of the patient's ulceration henceforth. We have recommended offloading measures, and have discussed the means by which this can be accomplished in detail. The patient is to avoid sitting for prolonged periods of time. Alternatively, she can lay in bed, and reposition herself frequently. We are to request a Roho cushion for her wheelchair, to enhance offloading measures. Patient has been encouraged to make efforts to keep her thighs , to minimize accumulation of body heat and perspiration to the area. We are to implement the use of Promogran, applied topically, with a border dressing. This will be changed every other day, and home health nursing staff will assist with home dressing changes. Patient has been encouraged to optimize her nutritional intake. Weight loss has been recommended. A nutritional consult is to be requested, so the patient can be educated in dietary measures relative to weight loss efforts and management of her diabetes mellitus. The patient is to return in 1 week for reevaluation. Total time: 65 minutes
[2020-07-13 07:53] VITALS: BP 122/56; PULSE 84; RESP 20; TEMP 36.3; BMI 76.7
--- NOTE | 2020-07-13 08:33 | HP.PCM_ITS ---
History of Present Illness Date of Service: 07/13/20 Chief Complaint: Pressure ulceration of the right upper postero-medial thigh History of Wound: This is a morbidly obese, diabetic, 60-year-old female who presented with a pressure ulceration on the right upper postero-medial thigh. According the patient, it had been present for approximately 1 month. Patient is morbidly obese, with a BMI of 76.7. She stands 4 feet 11 inches in height, and weighs 380 pounds. Her mobility is limited, and she ambulates with the assistance of a walker. She spends a good part of each day sitting idly. She also sleeps in a recliner. She depends on her wheelchair to be out and about. She does not have a cushion for her wheelchair. She had recently been placing Neosporin ointment topically on the ulceration of the right upper postero-medial thigh, which is a stage II pressure ulceration. [facility] Medical History (Updated 06/29/20 @ 08:[address] Acosta Youssef MD) Anxiety and depression Cellulitis of multiple sites of buttock Chronic back pain COPD (chronic obstructive pulmonary disease) Diabetes mellitus, type II Esophageal reflux Essential hypertension Exertional dyspnea Heart failure History of DVT (deep vein thrombosis) Immobility Left leg cellulitis Lumbosacral neuritis Mixed hyperlipidemia Morbid obesity JEREMÍAS treated with BiPAP Peripheral neuropathy Pulmonary hypertension Sepsis SVT (supraventricular tachycardia) Home Medications duloxetine 60 mg PO DAILY 12/02/14 [History Last Taken 02/03/19 60 mg] spironolactone 25 mg PO DAILY 12/02/14 [History Last Taken 02/03/19 25 mg] aripiprazole 10 mg PO QHS 10/21/17 [History Last Taken 02/02/19] cetirizine 10 mg PO DAILY PRN PRN 06/13/18 [History Last Taken 06/13/18] cholecalciferol (vitamin D3) 50 mcg (2,000 unit) capsule 5,000 unit PO DAILY 04/09/19 [History Last Taken Unknown] pravastatin 20 mg tablet 20 mg PO QHS 04/09/19 [History Last Taken Unknown] trazodone 50 mg tablet 100 mg PO QHS tab 04/09/19 [History Last Taken Unknown] famotidine 40 mg PO DAILY 11/08/19 [History Last Taken Unknown] furosemide 80 mg PO DAILY 11/08/19 [History Last Taken Unknown] insulin glargine 25 unit SQ BID 11/08/19 [History Last Taken Unknown] acetaminophen 650 mg PO TID PRN PRN 06/29/20 [History Last Taken Unknown] hydrocodone-acetaminophen [Formoso] 1 tab PO BID PRN 06/29/20 [History Last Taken Unknown] metformin 500 mg PO DAILY 06/29/20 [History Last Taken Unknown] methocarbamol 500 mg PO BID PRN PRN 06/29/20 [History Last Taken Unknown] potassium chloride 10 meq PO DAILY 06/29/20 [History Last Taken Unknown] Allergy/AdvReac Type Severity Reaction Status Date / Time vancomycin Allergy Rash Verified 11/13/19 16:05 atorvastatin AdvReac Severe myalgias Verified 11/13/19 16:05 amlodipine AdvReac Unknown Verified 11/13/19 16:05 atenolol AdvReac Unknown Verified 11/13/19 16:05 bupropion HCl AdvReac Unknown Verified 11/13/19 16:05 [From Wellbutrin] fluoxetine HCl [From Prozac] AdvReac Unknown Verified 11/13/19 16:05 meloxicam [From Mobic] AdvReac Unknown Verified 11/13/19 16:05 metoprolol AdvReac Unknown Verified 11/13/19 16:05 pregabalin [From Lyrica] AdvReac Unknown Verified 11/13/19 16:05 quetiapine fumarate AdvReac Unknown Verified 11/13/19 16:05 [From Seroquel] quinapril HCl [From Accupril] AdvReac Unknown Verified 11/13/19 16:05 risperidone AdvReac Unknown Verified 11/13/19 16:05 rofecoxib [From Vioxx] AdvReac Unknown Verified 11/13/19 16:05 sitagliptin phosphate AdvReac Unknown Verified 11/13/19 16:05 [From Januvia] venlafaxine HCl AdvReac Unknown Verified 11/13/19 16:05 [From Effexor] Family History (Updated 04/09/19 @ 09:10 by Daisy Rockwell) Mother Hypertension CVA (cerebral vascular accident) Diabetes Heart disease Father Hypertension COPD (chronic obstructive pulmonary disease) Sister Hypertension Sister Hypertension Diabetes Brother Hypertension Diabetes Brother Hypertension Diabetes Brother Hypertension CAD (coronary artery disease) History of coronary artery bypass surgery, Onset Age: 48 Diabetes Surgical History (Updated 11/08/19 @ 15:44 by DEBRA Haq) History of hernia repair History of laparoscopic cholecystectomy History of left heart catheterization (LHC) (~05/23/12) Social History (Updated 04/09/19 @ 09:11 by Daisy Rockwell) Smoking Status: Former smoker alcohol intake: never substance use type: does not use Vital Signs Vital Signs Vital Signs: 07/13/20 07:53 Temperature 97.4 F L Temperature Source Temporal Pulse Rate 84 Respiratory Rate 20 H Blood Pressure 122/56 H Blood Pressure Mean 78 Blood Pressure Source Monitor Blood Pressure Position Sitting Blood Pressure Location Right Forearm Oxygen Delivery Method Room Air Weight Weight: 380 lb Body Mass Index (BMI) 76.7 Physical Exam Const alert, oriented x3, no apparent distress and well nourished Constitutional Narrative: The patient is morbidly obese. General Appearance: cooperative, comfortable and well developed Orientation / Consciousness: awake, oriented to person, oriented to place and oriented to time HEENT normocephalic Head and Scalp: normal to inspection, normocephalic and atraumatic External Ear: external ears normal Eyes PERRL and EOMs intact bilaterally Pupil: PERRL Neck General: trachea midline Resp normal respiratory effort and no use of accessory muscles Effort and Inspection: able to speak in complete sentences GI GI Narrative: The patient's abdomen is morbidly obese. Extremity no calf tenderness General Extremity: Negative for clubbing or cyanosis Skin Wound Narrative: The wound persists on the right upper posterior-medial thigh. It is a stage II pressure ulceration. It is smaller in size. Dimensions are documented elsewhere. There is no sign of infection or cellulitis. There is a small amount of bioburden. Neuro oriented x3 and CN's II-XII intact bilaterally Psych mental status grossly normal Appearance: grossly normal and appropriate Attitude: calm and engaged Activity / Motor Behavior: appropriate eye contact Speech: normal speech Thought Process: normal thought process Attention / Concentration: attention grossly intact Debridement Note Debridement Note Post-Debridement Measurements and Additional Note: Post-Debridement Measurements/Treatment ELIZABET - Nurse 1 - General Ulcer Assessment Start: 06/22/20 14:56 Freq: Status: Active Protocol: ANNMARIE Activity Type Activity Date Activity User E-Sign Co-Sign Detail Recorded Client Recorded Date Recorded By Document 06/29/20 07:59 KR [id number] 06/29/20 08:16 KR Document 07/13/20 07:53 MW [id number] 07/13/20 08:04 MW 06/29/20 07/13/20 07:59 07:53 WC - Today's Visit Information Type of service Initial Visit Follow-up Visit (Physician/FURNITURE ASSEMBLER ) Arrival Mode Wheelchair Ambulatory Transfer Assistance Manual Accompanied by self Patient Identification Verified (Name & Yes Yes ) Patient Requires Transmission-Based No Precautions Safety Precautions Fall Prevention Finger Stick Blood Sugar(mg/dl) (if 132 143 indicated): Blood Sugar Stated by Stated by Patient Patient Height and Weight Height 4 ft 11 in Weight 380 lb Weight in Pounds 380.0 lbs Body Mass Index (BMI) 76.7 76.7 BMI Classification Obese Obese BSA - Jamin 2.42 Vital Signs Temperature (97.8 F-99.1 F) 97.4 F L 97.4 F L Temperature Source Temporal Temporal Pulse Rate (60-100) 87 84 Pulse Location Monitor Monitor Respiratory Rate (12-18) 20 H Respiratory rate source Observation Oxygen Delivery Method Room Air Blood Pressure (90/60-120/80) 163/64 H 122/56 H Blood Pressure Mean 97 78 Source Monitor Monitor Position Sitting Sitting Blood Pressure Location Right Arm Right Forearm History Since Last Visit- (Skip if this is Patient's initial visit) Have you changed medications since your No No last visit? Any new allergies or adverse reactions No No Had a fall/change in ADL's that may No No increase risk of falls Signs or symptoms of abuse and/or No No neglect since last visit Have you been in the hospital since your No No last visit? Has dressing in place as prescribed No No Has compression in place as prescribed N/A N/A Has offloadiing in place as prescribed N/A N/A Experienced any changes in pain level or No No management Left Footwear Regular Shoe Regular Shoe Right Footwear Regular Shoe Regular Shoe Pain Scale: 0-10 Numeric Is Patient Pain Free? Yes Yes Lower Extremity Assessment/ Foot Assessment/ Toe Nail Assessment Right -Popliteal Doppler Multiphasic -Posterior Tibial Doppler Multiphasic -Dorsalis Pedis Doppler Multiphasic -Extremity Color Normal -Hair Growth on Legs Yes -Hair Growth on Toes No -Temperature of Extremity Warm -Capillary Refill Less than 3 Seconds -Dependent Rubor No -Blanched when Elevated N/A -Lipodermatosclerosis No -Other Deformity No -Prior Foot Ulcer No -Charcot Joint No -Prior Amputation No -Toe Nail Assessment Not Applicable -Thick No -Discolored No -Deformed No -Improper Length & Hygeine No Left -Popliteal Doppler Multiphasic -Posterior Tibial Doppler Multiphasic -Dorsalis Pedis Doppler Multiphasic -Extremity Color Normal -Hair Growth on Legs Yes -Hair Growth on Toes No -Temperature of Extremity Warm -Dependent Rubor No -Blanched when Elevated N/A -Lipodermatosclerosis No -Other Deformity No -Prior Foot Ulcer No -Charcot Joint No -Prior Amputation No -Thick No -Discolored No -Deformed No -Improper Length & Hygeine No Neuropathy Assessment Feet - Top Side and Bottom <Entered> (a) (a) 1 - + 2 - + 3 - + 4 - + 5 - + WC - Nurse 1 - General Ulcer Measurement Start: 06/22/20 14:56 Freq: Status: Active Protocol: Activity Type Activity Date Activity User E-Sign Co-Sign Detail Recorded Client Recorded Date Recorded By Document 06/29/20 07:59 KR [id number] 06/29/20 08:16 KR Document 07/13/20 07:53 MW [id number] 07/13/20 08:04 MW 06/29/20 07/13/20 07:59 07:53 Wound Center Nurse 1 #1 Right Upper Post Thigh -Combined with other wound No -Current Size (cm) - Length 1 0.5 -Current Size (cm) - Width 1 0.5 -Current Size (cm) - Depth 0.2 0.1 -Total Square Cm 1 0.25 -Photo Taken No -Epithelialization Small 1-33% -Tunneling No -Undermining/Tunneling No -Circular Undermining No -Exudate Amt None Present None Present -Wound Margin Distinct, Flat & Intact Outline Attached -Granulation Amt None Present (0 None Present (0 %) %) -Granulation Quality N/A -Slough/Fibrin Yes -Necrosis Amt None Present (0 Large (67-100%) %) -Necrotic Tissue Type Adherent Slough -Structure Exposed N/A -Texture (Yoon-wound Skin Appearance) Assessed, Assessed, Scarring Localized Edema -Moisture (Yoon-wound Skin Appearance) Assessed,Dry/ No Abnormality, Scaly Assessed -Color (Yoon-wound Skin Appearance) Assessed, Assessed, Hemosiderin Hemosiderin Staining Staining -Temperature (Yoon-wound Skin No Abnormality No Abnormality Appearance) (Pt Warm) (Pt Warm) -Tenderness on Palpation (Yoon-wound Yes Skin Appearance) -Ulcer Cleansing Rinsed/ Rinsed/ Irrigated with Irrigated with Saline Saline -Foul Odor after Cleansing No No -Anesthetic Used 5% Lidocaine 5% Lidocaine Gel Gel Lower Limb Edema Present No Right Calf (cm) 55.6 Right Ankle (cm) 30.5 Left Calf (cm) 59.4 Left Ankle (cm) 33.4 WC - Nurse 2 - General Ulcer CM Notes Start: 06/22/20 14:56 Freq: Status: Active Protocol: Activity Type Activity Date Activity User E-Sign Co-Sign Detail Recorded Client Recorded Date Recorded By Document 06/29/20 12:31 PL [id number] 06/29/20 12:33 PL 06/29/20 12:31 Wound Center Nurse 2 #1 Right Upper Post Thigh -Time 08:42 -Correct Patient Yes -Correct Side, Site, Position Yes -Correct Procedure Yes -Procedure Performed Yes -Type of Procedure Debridement -Clinical Debridement Subcutaneous -Tissue Removed Subcutaneous -Post Debridement (cm) - Length 1 -Post Debridement (cm) - Width 1 -Post Debridement (cm) - Depth 0.2 -Total Square (Post) (cm) 1 -Area of Debridement (cm) - Length 1 -Area of Debridement (cm) - Width 1 -Total Square (Area) (cm) 1 -Tunneling No -Undermining/Tunneling No -Circular Undermining No -Wound/Ulcer Outcome Not Healed -Ulcer Cleansing Rinsed/ Irrigated with Saline -Foul Odor after Cleansing No -Bioengineered Tissue No -Debridement - Subq, 1st 20sq cm Yes Pain Scale: 0-10 Numeric Is Patient Pain Free? Yes ELIZABET - Nurse 3 - General Ulcer D/C NN Start: 06/22/20 14:56 Freq: Status: Active Protocol: Activity Type Activity Date Activity User E-Sign Co-Sign Detail Recorded Client Recorded Date Recorded By Document 06/29/20 08:57 KR [id number] 06/29/20 09:05 KR 06/29/20 08:57 Wound Care Nurse 3 #1 Right Upper Post Thigh -Primary Dressing Applied Promogran -Primary Dressing Covered/Secured with Dry Gauze, Secured with Tape -Promogran 1 Pain Scale: 0-10 Numeric Is Patient Pain Free? Yes WC - Visit Discharge Discharge Condition Stable Ambulatory Status Wheelchair Accompanied by uplifting Wound debrided: Right upper posterior-medial thigh Laterality: Right Wound Grade/Stage: Stage II Type of Debridement: Excisional debridement Anesthesia Used: 5% Lidocaine Gel Depth: Down to and including healthy tissue and in the subcutaneous layer Percentage of wound debrided: 100 Instrument Used: 5mm curette Tissue Removed: Bioburden Severity: Fat Layer Exposed Amount of bleeding with debridement: Mild Bleeding Controlled with: Compression and gauze Patient tolerated procedure: Patient tolerated procedure well Assessment/Plan Assessment/Plan (1) Pressure ulcer of upper thigh: CODE(S): L89.209 - Pressure ulcer of unspecified hip, unspecified stage (2) Immobility: CODE(S): Z74.09 - Other reduced mobility (3) Peripheral neuropathy: CODE(S): G62.9 - Polyneuropathy, unspecified (4) Mixed hyperlipidemia: CODE(S): E78.2 - Mixed hyperlipidemia (5) COPD (chronic obstructive pulmonary disease): CODE(S): J44.9 - Chronic obstructive pulmonary disease, unspecified (6) SVT (supraventricular tachycardia): CODE(S): I47.1 - Supraventricular tachycardia (7) Essential hypertension: CODE(S): I10 - Essential (primary) hypertension (8) JEREMÍAS treated with BiPAP: CODE(S): G47.33 - Obstructive sleep apnea (adult) (pediatric) (9) Exertional dyspnea: CODE(S): R06.09 - Other forms of dyspnea (10) Pulmonary hypertension: CODE(S): I27.20 - Pulmonary hypertension, unspecified (11) Heart failure: CODE(S): I50.9 - Heart failure, unspecified QUALIFIERS: Heart failure type: diastolic Heart failure chronicity: chronic Qualified Code(s): I50.32 - Chronic diastolic (congestive) heart failure (12) Diabetes mellitus, type II: CODE(S): E11.9 - Type 2 diabetes mellitus without complications QUALIFIERS: Diabetes mellitus intermediate insulin use: with intermediate use Diabetes mellitus complication status: with unspecified complications Qualified Code(s): E11.8 - Type 2 diabetes mellitus with unspecified complications; 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 It had been present for approximately 1 month, according to the patient.? Pressure appears to be the etiology, though the site of the ulceration is an intertriginous zone, subject to body heat and perspiration.? We have discussed the appropriate measures for management of the patient's ulceration henceforth.? We have recommended offloading measures, and have discussed the means by which this can be accomplished in detail.? The patient is to avoid sitting for prolonged periods of time.? Alternatively, she can lay in bed, and reposition herself frequently.? We are to request a Roho cushion for her wheelchair, to enhance offloading measures.? Patient has been encouraged to make efforts to keep her thighs , to minimize accumulation of body heat and perspiration to the area.? We are to implement the use of Promogran, applied topically, with a border dressing.? This will be changed every other day, and home health nursing staff will assist with home dressing changes.? Patient has been encouraged to optimize her nutritional intake.? Weight loss has been recommended.? A nutritional consult is to be requested, so the patient can be educated in dietary measures relative to weight loss efforts and management of her diabetes mellitus.? The patient is to return in 1 week for reevaluation. Total time: 28 minutes.
== END 2020-07-19 23:59 ==
LOC: WC 08:00
PROVIDERS: PCP Family Medicine; Visit Provider Surgery
DX: L89.892 Pressure ulcer of other site, stage 2 (principal); E66.01 Morbid (severe) obesity due to excess calories; Z68.45 Body mass index [BMI] 70 or greater, adult; E11.42 Type 2 diabetes mellitus with diabetic polyneuropathy; J44.9 Chronic obstructive pulmonary disease, unspecified; E78.2 Mixed hyperlipidemia; G47.33 Obstructive sleep apnea (adult) (pediatric); I11.0 Hypertensive heart disease with heart failure; I50.9 Heart failure, unspecified; I27.20 Pulmonary hypertension, unspecified; Z86.718 Personal history of other venous thrombosis and embolism; Z79.899 Other long term (current) drug therapy; Z79.84 Long term (current) use of oral hypoglycemic drugs; Z87.891 Personal history of nicotine dependence; K21.9 Gastro-esophageal reflux disease without esophagitis
CPT/HCPCS: 11042; 99213; G0463

== ENCOUNTER 2020-08-03 08:15 | Outpatient (RCR) | payer MEDICARE, MEDICAID, SELFPAY ==
[2020-07-20 00:06] VITALS: BP 122/56; PULSE 84; RESP 20; TEMP 36.3
[2020-08-03 08:02] VITALS: BP 129/55; PULSE 74; RESP 18; TEMP 36.3; BMI 76.7
--- NOTE | 2020-08-03 08:39 | PCM.WC.HP ---
History of Present Illness Date of Service: 08/03/20 Chief Complaint: Pressure ulceration of the right upper postero-medial thigh History of Wound: This is a morbidly obese, diabetic, 60-year-old female who presented with a pressure ulceration on the right upper postero-medial thigh. According the patient, it had been present for approximately 1 month. Patient is morbidly obese, with a BMI of 76.7. She stands 4 feet 11 inches in height, and weighs 380 pounds. Her mobility is limited, and she ambulates with the assistance of a walker. She spends a good part of each day sitting idly. She also sleeps in a recliner. She depends on her wheelchair to be out and about. She does not have a cushion for her wheelchair. She had recently been placing Neosporin ointment topically on the ulceration of the right upper postero-medial thigh, which is a stage II pressure ulceration. [facility] Medical History (Updated 06/29/20 @ 08:[address] Acosta Youssef MD) Anxiety and depression Cellulitis of multiple sites of buttock Chronic back pain COPD (chronic obstructive pulmonary disease) Diabetes mellitus, type II Esophageal reflux Essential hypertension Exertional dyspnea Heart failure History of DVT (deep vein thrombosis) Immobility Left leg cellulitis Lumbosacral neuritis Mixed hyperlipidemia Morbid obesity JEREMÍAS treated with BiPAP Peripheral neuropathy Pulmonary hypertension Sepsis SVT (supraventricular tachycardia) Home Medications duloxetine 60 mg PO DAILY 12/02/14 [History Last Taken 02/03/19 60 mg] spironolactone 25 mg PO DAILY 12/02/14 [History Last Taken 02/03/19 25 mg] aripiprazole 10 mg PO QHS 10/21/17 [History Last Taken 02/02/19] cetirizine 10 mg PO DAILY PRN PRN 06/13/18 [History Last Taken 06/13/18] cholecalciferol (vitamin D3) 50 mcg (2,000 unit) capsule 5,000 unit PO DAILY 04/09/19 [History Last Taken Unknown] pravastatin 20 mg tablet 20 mg PO QHS 04/09/19 [History Last Taken Unknown] trazodone 50 mg tablet 100 mg PO QHS tab 04/09/19 [History Last Taken Unknown] famotidine 40 mg PO DAILY 11/08/19 [History Last Taken Unknown] furosemide 80 mg PO DAILY 11/08/19 [History Last Taken Unknown] insulin glargine 25 unit SQ BID 11/08/19 [History Last Taken Unknown] acetaminophen 650 mg PO TID PRN PRN 06/29/20 [History Last Taken Unknown] hydrocodone-acetaminophen [[place]] 1 tab PO BID PRN 06/29/20 [History Last Taken Unknown] metformin 500 mg PO DAILY 06/29/20 [History Last Taken Unknown] methocarbamol 500 mg PO BID PRN PRN 06/29/20 [History Last Taken Unknown] potassium chloride 10 meq PO DAILY 06/29/20 [History Last Taken Unknown] Allergy/AdvReac Type Severity Reaction Status Date / Time vancomycin Allergy Rash Verified 11/13/19 16:05 atorvastatin AdvReac Severe myalgias Verified 11/13/19 16:05 amlodipine AdvReac Unknown Verified 11/13/19 16:05 atenolol AdvReac Unknown Verified 11/13/19 16:05 bupropion HCl AdvReac Unknown Verified 11/13/19 16:05 [From Wellbutrin] fluoxetine HCl [From Prozac] AdvReac Unknown Verified 11/13/19 16:05 meloxicam [From Mobic] AdvReac Unknown Verified 11/13/19 16:05 metoprolol AdvReac Unknown Verified 11/13/19 16:05 pregabalin [From Lyrica] AdvReac Unknown Verified 11/13/19 16:05 quetiapine fumarate AdvReac Unknown Verified 11/13/19 16:05 [From Seroquel] quinapril HCl [From Accupril] AdvReac Unknown Verified 11/13/19 16:05 risperidone AdvReac Unknown Verified 11/13/19 16:05 rofecoxib [From Vioxx] AdvReac Unknown Verified 11/13/19 16:05 sitagliptin phosphate AdvReac Unknown Verified 11/13/19 16:05 [From Januvia] venlafaxine HCl AdvReac Unknown Verified 11/13/19 16:05 [From Effexor] Family History (Updated 04/09/19 @ 09:10 by Daisy Rockwell) Mother Hypertension CVA (cerebral vascular accident) Diabetes Heart disease Father Hypertension COPD (chronic obstructive pulmonary disease) Sister Hypertension Sister Hypertension Diabetes Brother Hypertension Diabetes Brother Hypertension Diabetes Brother Hypertension CAD (coronary artery disease) History of coronary artery bypass surgery, Onset Age: 48 Diabetes Surgical History (Updated 11/08/19 @ 15:44 by DEBRA Haq) History of hernia repair History of laparoscopic cholecystectomy History of left heart catheterization (LHC) (~05/23/12) Social History (Updated 04/09/19 @ 09:11 by Daisy Rockwell) Smoking Status: Former smoker alcohol intake: never substance use type: does not use Vital Signs Vital Signs Vital Signs: 08/03/20 08:02 Temperature 97.4 F L Temperature Source Temporal Pulse Rate 74 Respiratory Rate 18 Blood Pressure 129/55 H Blood Pressure Mean 79 Blood Pressure Source Monitor Blood Pressure Position Sitting Blood Pressure Location Left Forearm Oxygen Delivery Method Room Air Weight Weight: 380 lb Body Mass Index (BMI) 76.7 Physical Exam Const alert, oriented x3, no apparent distress and well nourished Constitutional Narrative: The patient is morbidly obese. General Appearance: cooperative, comfortable and well developed Orientation / Consciousness: awake, oriented to person, oriented to place and oriented to time HEENT normocephalic Head and Scalp: normal to inspection, normocephalic and atraumatic Eyes PERRL and EOMs intact bilaterally General Eye: normal appearance of both eyes Neck supple and no JVD Resp normal respiratory effort and no use of accessory muscles Effort and Inspection: able to speak in complete sentences Extremity no calf tenderness General Extremity: Negative for clubbing or cyanosis Skin Wound Narrative: The pressure ulceration on the right upper posterior-medial thigh is completely healed and epithelialized. Neuro oriented x3 and CN's II-XII intact bilaterally Speech: speech normal Psych Appearance: grossly normal and appropriate Attitude: calm Activity / Motor Behavior: appropriate eye contact Speech: normal speech Thought Process: normal thought process Attention / Concentration: attention grossly intact Debridement Note Debridement Note Post-Debridement Measurements and Additional Note: Post-Debridement Measurements/Treatment - Nurse 1 - General Ulcer Assessment Start: 08/03/20 08:01 Freq: Status: Active Protocol: ANNMARIE Activity Type Activity Date Activity User E-Sign Co-Sign Detail Recorded Client Recorded Date Recorded By Document 08/03/20 08:02 [facility] [id number] 08/03/20 08:09 [facility] 08/03/20 08:02 - Today's Visit Information Type of service Follow-up Visit (Physician/PUBLIC HEALTH SERVICE OFFICER ) Arrival Mode Wheelchair Transfer Assistance Manual Transfer Assist (Other) 3 MAX ASSIST Patient Identification Verified (Name & Yes ) Patient Requires Transmission-Based No Precautions Finger Stick Blood Sugar(mg/dl) (if 135 indicated): Blood Sugar Stated by Patient Height and Weight Body Mass Index (BMI) 76.7 BMI Classification Obese Vital Signs Temperature (97.8 F-99.1 F) 97.4 F L Temperature Source Temporal Pulse Rate (60-100) 74 Pulse Location Monitor Respiratory Rate (12-18) 18 Respiratory rate source Observation Oxygen Delivery Method Room Air Blood Pressure (90/60-120/80) 129/55 H Blood Pressure Mean 79 Source Monitor Position Sitting Blood Pressure Location Left Forearm History Since Last Visit- (Skip if this is Patient's initial visit) Have you changed medications since your No last visit? Any new allergies or adverse reactions No Had a fall/change in ADL's that may No increase risk of falls Signs or symptoms of abuse and/or No neglect since last visit Have you been in the hospital since your No last visit? Has dressing in place as prescribed No Has compression in place as prescribed N/A Has offloadiing in place as prescribed N/A Experienced any changes in pain level or No management Left Footwear Regular Shoe Right Footwear Regular Shoe Pain Scale: 0-10 Numeric Is Patient Pain Free? Yes WC - Nurse 1 - General Ulcer Measurement Start: 08/03/20 08:01 Freq: Status: Active Protocol: Activity Type Activity Date Activity User E-Sign Co-Sign Detail Recorded Client Recorded Date Recorded By Document 08/03/20 08:02 [facility] [id number] 08/03/20 08:09 [facility] 08/03/20 08:02 Wound Center Nurse 1 #1 Right Upper Post Thigh -Combined with other wound No -Current Size (cm) - Length 0.1 -Current Size (cm) - Width 0.1 -Current Size (cm) - Depth 0.1 -Total Square Cm 0.01 -Epithelialization Large 67-100% -Texture (Yoon-wound Skin Appearance) Assessed, Scarring -Moisture (Yoon-wound Skin Appearance) Assessed -Color (Yoon-wound Skin Appearance) Assessed -Temperature (Yoon-wound Skin No Abnormality Appearance) (Pt Warm) -Tenderness on Palpation (Yoon-wound No Skin Appearance) No debridement was completed: No debridement was completed today (The patient's ulceration is completely healed.) Assessment/Plan Assessment/Plan (1) Pressure ulcer of upper thigh: CODE(S): L89.209 - Pressure ulcer of unspecified hip, unspecified stage (2) Immobility: CODE(S): Z74.09 - Other reduced mobility (3) Peripheral neuropathy: CODE(S): G62.9 - Polyneuropathy, unspecified (4) Mixed hyperlipidemia: CODE(S): E78.2 - Mixed hyperlipidemia (5) COPD (chronic obstructive pulmonary disease): CODE(S): J44.9 - Chronic obstructive pulmonary disease, unspecified (6) SVT (supraventricular tachycardia): CODE(S): I47.1 - Supraventricular tachycardia (7) Essential hypertension: CODE(S): I10 - Essential (primary) hypertension (8) JEREMÍAS treated with BiPAP: CODE(S): G47.33 - Obstructive sleep apnea (adult) (pediatric) (9) Exertional dyspnea: CODE(S): R06.09 - Other forms of dyspnea (10) Pulmonary hypertension: CODE(S): I27.20 - Pulmonary hypertension, unspecified (11) Heart failure: CODE(S): I50.9 - Heart failure, unspecified QUALIFIERS: Heart failure type: diastolic Heart failure chronicity: chronic Qualified Code(s): I50.32 - Chronic diastolic (congestive) heart failure (12) Diabetes mellitus, type II: CODE(S): E11.9 - Type 2 diabetes mellitus without complications QUALIFIERS: Diabetes mellitus prison insulin use: with remote computer terminal operator use Diabetes mellitus complication status: with unspecified complications Qualified Code(s): E11.8 - Type 2 diabetes mellitus with unspecified complications; Z79.4 - terminal system operator (current) use of insulin (13) Esophageal reflux: CODE(S): K21.9 - Gastro-esophageal reflux disease without esophagitis QUALIFIERS: Esophagitis presence: esophagitis presence not specified Qualified Code(s): K21.9 - Gastro-esophageal reflux disease without esophagitis (14) Morbid obesity: CODE(S): E66.01 - Morbid (severe) obesity due to excess calories PLAN: This is a 60-year-old morbidly obese diabetic female who presented with a stage II pressure ulceration on the right upper, postero-medial thigh. It had been present for approximately 1 month, according to the patient. Pressure appears to be the etiology, though the site of the ulceration is an intertriginous zone, subject to body heat and perspiration. We discussed the appropriate measures for management of the patient's ulceration henceforth. We recommended offloading measures, and have discussed the means by which this can be accomplished in detail. We requested a Roho cushion for her wheelchair, to enhance offloading measures. Patient was encouraged to make efforts to keep her thighs , to minimize accumulation of body heat and perspiration to the area. Upon the patient's presentation today, her ulceration is now completely healed and epithelialized. The patient is to be discharged at this time, and will follow-up henceforth on an as-needed basis. She has been encouraged to continue implementing offloading measures, and weight loss has been recommended. Total time: 29 minutes.
== END 2020-08-03 08:46 | disposition home or self-care (01) ==
LOC: WC 08:15
PROVIDERS: PCP Family Medicine; Visit Provider Surgery
DX: Z09 Encounter for follow-up examination after completed treatment for conditions other than malignant neoplasm (principal); E11.42 Type 2 diabetes mellitus with diabetic polyneuropathy; E66.01 Morbid (severe) obesity due to excess calories; Z68.45 Body mass index [BMI] 70 or greater, adult; E78.2 Mixed hyperlipidemia; J44.9 Chronic obstructive pulmonary disease, unspecified; G47.33 Obstructive sleep apnea (adult) (pediatric); I27.20 Pulmonary hypertension, unspecified; I10 Essential (primary) hypertension; K21.9 Gastro-esophageal reflux disease without esophagitis; I50.32 Chronic diastolic (congestive) heart failure
CPT/HCPCS: 99213; G0463

== ENCOUNTER 2020-09-14 17:06 | Emergency (ER) | payer MEDICARE, MEDICAID, SELFPAY ==
[2020-09-14 17:07] VITALS: BP 135/55; PULSE 86; RESP 20; TEMP 37.1; O2SAT 96; BMI 81.7
[2020-09-14 17:11] VITALS: BP 135/55; PULSE 86; RESP 20; TEMP 37.1; O2SAT 96
--- NOTE | 2020-09-14 18:08 | EKG12_ITS ---
Test Reason : DYSRYTHMIA Blood Pressure : / mmHG Vent. Rate : 075 BPM Atrial Rate : 075 BPM P-R Int : 146 ms QRS Dur : 092 ms QT Int : 372 ms P-R-T Axes : 053 025 063 degrees QTc Int : 415 ms Normal sinus rhythm Normal ECG Confirmed by MICHEL SIMS, ALEAH ([id number]), acquisitions editor GRANT SAGASTUME ([id number]) on 09/16/2020 9:55:08 AM Referred By: JASEN Confirmed By:ALEAH PEARSON MD
[2020-09-14 18:15] VITALS: TEMP 37
[2020-09-14 18:33] LABS: Bacteria 0 SEEN /hpf (None Seen); Mucous, Urine 0 SEEN /hpf (<or=2+); Red Blood Cells-Urine 0 SEEN /hpf (0-5); Squamous Epithelial Cells - UA 0 SEEN /hpf (5-10); White Blood Cells 0 SEEN /hpf (0-5)
[2020-09-14 18:35] LABS: Color, Urine Yellow (Yellow); Glucose, Dipstick 100 mg/dl (Normal); Ketone-Dipstick Negative (Negative); Leukocyte Esterase-Dipstick Negative /ul (Negative); Nitrite-Dipstick Negative (Negative); Occult Blood-Urine Negative /ul (Negative); Protein-Dipstick 15 mg/dl (Negative); Urine Bilirubin Dipstick Negative (Negative); Urine Clarity Clear (Clear); Urine Urobilinogen Normal (Normal)
[2020-09-14 18:51] LABS: Absolute Lymphocyte Count 0.81 X10^3/uL (0.83-4.51); Absolute Neutrophil Count 3.2 X10^3/uL (2.0-7.7); Basophil# 0.01 X10^3/uL; Basophil% 0.2 % (0-1); Eosinophils% 2.2 % (0-5); Hematocrit 39.5 % (37-47); Hemoglobin 12.6 g/dL (12.0-15.0); Lymphocyte # 0.81 X10^3/ul (0.83-4.51); Lymphocyte % 17.6 % (19-41); Mean Corp Hgb Conc 31.9 g/dL (32-36); Mean Corpuscular Hgb 28.4 pg (27.0-32.0); Mean Corpuscular Volume 89.2 fL (81-99); Mean Platelet Vol. 11.4 fl (6.2-12.0); Monocyte# 0.51 X10^3/uL; Monocyte% 11.1 % (0-10); NRBC Flagged by Analyzer 0 % (0-5); Neutrophil # 3.16 X10^3/uL (2.7-7.7); Neutrophil % 68.7 % (47-70); Platelet Count 215 K/mm3 (150-450); RBC Distribution Width CV 13.1 % (11.6-14.6); RBC Distribution Width SD 42.8 fl (35.1-43.9); Red Blood Count 4.43 M/mm3 (4.2-5.4); White Blood Count 4.6 K/mm3 (4.4-11.0)
[2020-09-14] MEDS: Cefazolin 1 GM/50 ML BAG IV (18:59)
[2020-09-14 19:01] LABS: International Normalized Ratio 1.1; Prothrombin Time (Protime)PT. 13.1 SECONDS (11.7-14.9)
--- NOTE | 2020-09-14 19:01 | RAD_ITS ---
EXAM: XR CHEST, 1 VIEW : 1960 CLINICAL INDICATION: dyspnea TECHNIQUE: Frontal view of the chest. This report was created using [employer] report generation technology. COMPARISON: 11/13/2019 FINDINGS: LUNGS AND PLEURAL SPACES: There is minimal right basilar airspace disease. No pneumothorax. No effusion. HEART: Unremarkable. Cardiac silhouette not enlarged. MEDIASTINUM: Central airways and mediastinal contour are unremarkable. BONES/JOINTS: Unremarkable. SOFT TISSUES: Unremarkable. RAD/Chest 1 View (Portable) IMPRESSION: Minimal right basilar airspace disease which may represent atelectasis. at 1944 Reported and signed by: Deng Siddiqi MD Electronically Signed: Deng Siddiqi MD at 19:43 EDT Tel , Service support ,
[2020-09-14 19:02] LABS: Partial Thromboplast Time 33.2 Seconds (24.1-36.2)
[2020-09-14 19:02] LABS: AST(SGOT) 20 U/L (15-37); Alanine Aminotransfer ALT/SGPT 25 U/L (13-56); Albumin, Serum 3.4 g/dL (3.2-5.0); Alkaline Phosphatase 127 U/L (45-117); Anion Gap 3 (5-15); BUN 15 mg/dL (7-18); BUN/Creat Ratio 21.9 RATIO (10-20); Calcium,Total 11.2 mg/dL (8.5-10.1); Chloride 100 mmol/L (98-107); Creatinine, Serum 0.69 mg/dL (0.55-1.02); EST Glomerular Filtration Rate 93 mL/min (>60); Est Glom Filt Rate - Afr Amer 112 mL/min (>60); Estimated Creatinine Clearance 251.17 ml/min; Globulin 3.5 g/dL (2.2-4.2); Glucose 258 mg/dL (74-106); Potassium 4.6 mmol/L (3.5-5.1); Protein, Total 6.9 g/dL (6.4-8.2); Sodium Level 137 mmol/L (136-145)
[2020-09-14 19:03] LABS: Lactic Acid 1.2 mmol/L (0.4-1.9)
[2020-09-14 19:08] VITALS: BP 120/61; PULSE 84; RESP 16; TEMP 36.6; O2SAT 99
[2020-09-14 19:27] VITALS: BP 146/99; PULSE 87; RESP 18; TEMP 36.9; O2SAT 96
--- NOTE | 2020-09-14 19:49 | EX.ED.DYSGE1 ---
HPI History of Present Illness Chief Complaint: Cellulitis Informant: patient Narrative Narrative: 60-year-old female presents the emergency department out of concern for cellulitis. She states over the past several days she has developed redness and pain in the left posterior thigh and buttock extending up into the low back and over to the right buttock. She notes that she had a fever yesterday but none today however she is also been taking ibuprofen. Patient states that this is recurrent for her. She has had to be hospitalized for this in the past. [facility] Medical History Anxiety and depression Cellulitis of multiple sites of buttock Chronic back pain COPD (chronic obstructive pulmonary disease) Diabetes mellitus, type II Esophageal reflux Essential hypertension Exertional dyspnea Heart failure History of DVT (deep vein thrombosis) Immobility Left leg cellulitis Lumbosacral neuritis Mixed hyperlipidemia Morbid obesity JEREMÍAS treated with BiPAP Peripheral neuropathy Pulmonary hypertension Sepsis SVT (supraventricular tachycardia) Home Medications duloxetine 60 mg PO DAILY 12/02/14 [History Last Taken 02/03/19 60 mg] spironolactone 25 mg PO DAILY 12/02/14 [History Last Taken 02/03/19 25 mg] aripiprazole 10 mg PO QHS 10/21/17 [History Last Taken 02/02/19] cetirizine 10 mg PO DAILY PRN PRN 06/13/18 [History Last Taken 06/13/18] cholecalciferol (vitamin D3) 50 mcg (2,000 unit) capsule 5,000 unit PO DAILY 04/09/19 [History Last Taken Unknown] pravastatin 20 mg tablet 20 mg PO QHS 04/09/19 [History Last Taken Unknown] trazodone 50 mg tablet 100 mg PO QHS tab 04/09/19 [History Last Taken Unknown] famotidine 40 mg PO DAILY 11/08/19 [History Last Taken Unknown] furosemide 80 mg PO DAILY 11/08/19 [History Last Taken Unknown] insulin glargine 25 unit SQ BID 11/08/19 [History Last Taken Unknown] acetaminophen 650 mg PO TID PRN PRN 06/29/20 [History Last Taken Unknown] hydrocodone-acetaminophen [[place]] 1 tab PO BID PRN 06/29/20 [History Last Taken Unknown] metformin 500 mg PO DAILY 06/29/20 [History Last Taken Unknown] methocarbamol 500 mg PO BID PRN PRN 06/29/20 [History Last Taken Unknown] potassium chloride 10 meq PO DAILY 06/29/20 [History Last Taken Unknown] cephalexin [Keflex] 750 mg PO Q6H #40 cap 09/14/20 [Rx Last Taken Unknown] Allergy/AdvReac Type Severity Reaction Status Date / Time vancomycin Allergy Rash Verified 09/14/20 17:12 atorvastatin AdvReac Severe myalgias Verified 09/14/20 17:12 amlodipine AdvReac Unknown Verified 09/14/20 17:12 atenolol AdvReac Unknown Verified 09/14/20 17:12 bupropion HCl AdvReac Unknown Verified 09/14/20 17:12 [From Wellbutrin] fluoxetine HCl [From Prozac] AdvReac Unknown Verified 09/14/20 17:12 meloxicam [From Mobic] AdvReac Unknown Verified 09/14/20 17:12 metoprolol AdvReac Unknown Verified 09/14/20 17:12 pregabalin [From Lyrica] AdvReac Unknown Verified 09/14/20 17:12 quetiapine fumarate AdvReac Unknown Verified 09/14/20 17:12 [From Seroquel] quinapril HCl [From Accupril] AdvReac Unknown Verified 09/14/20 17:12 risperidone AdvReac Unknown Verified 09/14/20 17:12 rofecoxib [From Vioxx] AdvReac Unknown Verified 09/14/20 17:12 sitagliptin phosphate AdvReac Unknown Verified 09/14/20 17:12 [From Januvia] venlafaxine HCl AdvReac Unknown Verified 09/14/20 17:12 [From Effexor] Family History Mother Hypertension CVA (cerebral vascular accident) Diabetes Heart disease Father Hypertension COPD (chronic obstructive pulmonary disease) Sister Hypertension Sister Hypertension Diabetes Brother Hypertension Diabetes Brother Hypertension Diabetes Brother Hypertension CAD (coronary artery disease) History of coronary artery bypass surgery, Onset Age: 48 Diabetes Surgical History History of hernia repair History of laparoscopic cholecystectomy History of left heart catheterization (LHC) (~05/23/12) Social History Smoking Status: Former smoker alcohol intake: never substance use type: does not use EXAM Physical Exam Const Vital Signs: 09/14/20 17:07 09/14/20 17:11 09/14/20 18:15 Temperature 98.7 F 98.7 F 98.6 F Temperature Source Oral Oral Oral Pulse Rate 86 86 Respiratory Rate 20 H 20 H Blood Pressure 135/55 H 135/55 H Blood Pressure Mean 81 81 Pulse Ox 96 96 Oxygen Delivery Method Room Air Room Air 09/14/20 19:08 09/14/20 19:27 Temperature 97.8 F 98.5 F Temperature Source Temporal Oral Pulse Rate 84 87 Respiratory Rate 16 18 Blood Pressure 120/61 146/99 H Blood Pressure Mean 80 114 Pulse Ox 99 96 Oxygen Delivery Method Room Air Room Air MDM MDM MDM Narrative Medical decision making narrative: White count is 4.6. Lactic acid 1.2. Blood cultures were obtained. Patient received Ancef. She has responded well to this in the past. I spoke with the patient and she is afebrile and has a normal white count is not been on antibiotics. She would like to try to go home and we will place her on Keflex 750 4 times daily which is what she has been on in the past and responded well to. Patient will return if worsening she denies Lab Data Attestation: I reviewed the patient's lab results. Labs: Laboratory Results - last 24 hr 09/14/20 09/14/20 09/14/20 17:23 17:23 17:23 WBC 4.6 RBC 4.43 Hgb 12.6 Hct 39.5 MCV 89.2 MCH 28.4 MCHC 31.9 L RDW Std Deviation 42.8 RDW Coeff of Kaity 13.1 Plt Count 215 MPV 11.4 Immature Gran % (Auto) 0.200 Neut % (Auto) 68.7 Lymph % (Auto) 17.6 L [place] % (Auto) 11.1 H Eos % (Auto) 2.2 Baso % (Auto) 0.2 Absolute Neuts (auto) 3.2 Absolute Lymphs (auto) 0.81 L Nucleated RBC % 0 PT INR APTT Sodium 137 Potassium 4.6 Chloride 100 Carbon Dioxide 34.0 H Anion Gap 3 L BUN 15 Creatinine 0.69 Estim Creat Clear Calc 251.17 Est GFR (MDRD) Af Amer 112 Est GFR (MDRD) Non-Af 93 BUN/Creatinine Ratio 21.9 H Glucose 258 H Lactic Acid 1.2 Calcium 11.2 H Total Bilirubin 0.50 AST 20 ALT 25 Alkaline Phosphatase 127 H Total Protein 6.9 Albumin 3.4 Globulin 3.5 Albumin/Globulin Ratio 1.0 Urine Color Urine Clarity Urine pH Ur Specific [place] Urine Protein Urine Glucose (UA) Urine Ketones Urine Occult Blood Urine Nitrite Urine Bilirubin Urine Urobilinogen Ur Leukocyte Esterase Urine RBC Urine WBC Ur Squamous Epith Cells Urine Bacteria Urine Mucus 09/14/20 09/14/20 18:20 18:46 WBC RBC Hgb Hct MCV MCH MCHC RDW Std Deviation RDW Coeff of Kaity Plt Count MPV Immature Gran % (Auto) Neut % (Auto) Lymph % (Auto) [place] % (Auto) Eos % (Auto) Baso % (Auto) Absolute Neuts (auto) Absolute Lymphs (auto) Nucleated RBC % PT 13.1 INR 1.1 APTT 33.2 Sodium Potassium Chloride Carbon Dioxide Anion Gap BUN Creatinine Estim Creat Clear Calc Est GFR (MDRD) Af Amer Est GFR (MDRD) Non-Af BUN/Creatinine Ratio Glucose Lactic Acid Calcium Total Bilirubin AST ALT Alkaline Phosphatase Total Protein Albumin Globulin Albumin/Globulin Ratio Urine Color Yellow Urine Clarity Clear Urine pH 7.0 Ur Specific [place] 1.010 Urine Protein 15 H Urine Glucose (UA) 100 H Urine Ketones Negative Urine Occult Blood Negative Urine Nitrite Negative Urine Bilirubin Negative Urine Urobilinogen Normal Ur Leukocyte Esterase Negative Urine RBC 0 SEEN Urine WBC 0 SEEN Ur Squamous Epith Cells 0 SEEN Urine Bacteria 0 SEEN Urine Mucus 0 SEEN Radiography Diagnostic Testing: Radiology Impression Chest X-Ray 09/14/20 19:01 IMPRESSION: Minimal right basilar airspace disease which may represent atelectasis. at 1944 Reported and signed by: Deng Siddiqi MD Electronically Signed: Deng Siddiqi MD at 19:43 EDT Tel , Service support , EKG Initial EKG: Attestation: I personally reviewed and interpreted this EKG as follows: Comments: EKG demonstrates a normal sinus rhythm at 75 bpm. There is no concerning features of ACS or ectopy noted. Discharge Plan Triage Chief Complaint: Cellulitis ED Provider: Zain Andrade Dx/Rx/DC Orders Clinical Impression: Cellulitis of back Instructions: ED Cellulitis Prescriptions: New cephalexin [Keflex] 750 mg capsule 750 mg PO Q6H Qty: 40 RF: 0 No Action pravastatin 20 mg tablet 20 mg PO QHS RF: 0 cholecalciferol (vitamin D3) 50 mcg (2,000 unit) capsule 5,000 unit PO DAILY RF: 0 spironolactone 25 MG tablet 25 mg PO DAILY RF: 0 duloxetine 60 MG capsule,delayed release(DR/EC) 60 mg PO DAILY RF: 0 trazodone 50 mg tablet 100 mg PO QHS RF: 0 aripiprazole 10 MG tablet 10 mg PO QHS RF: 0 cetirizine 10 MG capsule 10 mg PO DAILY PRN PRN (Reason: Allergies) RF: 0 furosemide 40 MG tablet 80 mg PO DAILY RF: 0 famotidine 40 MG tablet 40 mg PO DAILY RF: 0 insulin glargine 100 UNIT/ML insulin pen 25 unit SQ BID RF: 0 methocarbamol 500 mg Tablet 500 mg PO BID PRN PRN (Reason: Spasms) RF: 0 metformin 500 mg Tablet 500 mg PO DAILY RF: 0 potassium chloride 10 mEq Capsule, Extended Release 10 meq PO DAILY RF: 0 hydrocodone-acetaminophen [[place]] 5-325 mg Tablet 1 tab PO BID PRN (Reason: Pain) RF: 0 acetaminophen 650 mg Tablet 650 mg PO TID PRN PRN (Reason: Pain) RF: 0 Primary Care Provider: Vincent Negro Referrals: Vincent Negro MD [Primary Care Provider] -
[2020-09-14] MEDS: Cephalexin 250 MG Capsule 750 MG PO (20:23)
[2020-09-14 20:39] VITALS: BP 141/65; PULSE 84; RESP 19; O2SAT 96
--- NOTE | 2020-09-14 20:40 | ED.RN ---
THIS NURSE REVIEWED D/C INSTRUCTIONS WITH PT. PT VERBALIZED UNDERSTANDING OF INSTRUCTIONS. IV D/C. IV CATHETER INTACT. PT TOLERATED WELL. PT DENIES FURTHER NEEDS AT THIS TIME. PT STOOD, PIVOTED, AND SAT ON THE EMS COT
--- NOTE | 2020-09-16 06:28 | ED.RN ---
PT WAS CALLED AND INFORMED THAT HER FIRST BLOOD CULTURE CAME BACK POSITIVE. SHE WAS ADVISED BY THAT IF SHE WAS FEELING WORSE TO COME BACK IN IMMEDIATELY. IF HER SECOND BLOOD CULTURE CAME BACK POSITIVE WELL WE WOULD CALL HER WITH THOSE RESULTS AND ANY CHANGES IN TREATMENT PLAN. MARIO VERBALIZED UNDERSTANDING OF LAB RESULTS AND FOLLOW UP PLAN.
== END 2020-09-14 20:41 | disposition home or self-care (01) ==
PROVIDERS: Emergency Provider Emergency Medicine; PCP Family Medicine
DX: L03.312 Cellulitis of back [any part except buttock and flank] (principal); J44.9 Chronic obstructive pulmonary disease, unspecified; I11.0 Hypertensive heart disease with heart failure; I50.9 Heart failure, unspecified; E78.2 Mixed hyperlipidemia; E66.01 Morbid (severe) obesity due to excess calories; E11.42 Type 2 diabetes mellitus with diabetic polyneuropathy; G47.33 Obstructive sleep apnea (adult) (pediatric); I27.20 Pulmonary hypertension, unspecified; I47.1 Supraventricular tachycardia; K21.00 Gastro-esophageal reflux disease with esophagitis, without bleeding; F32.9 Major depressive disorder, single episode, unspecified; F41.9 Anxiety disorder, unspecified; Z79.4 Long term (current) use of insulin; Z79.899 Other long term (current) drug therapy; Z86.718 Personal history of other venous thrombosis and embolism; Z87.891 Personal history of nicotine dependence
CPT/HCPCS: 71045; 80053; 81001; 83605; 85025; 85610; 85730; 87040; 87149; 93005; 96365; 99285; J7030; A4216

== ENCOUNTER → 2020-09-20 09:10 | Outpatient (CLI) | payer MEDICARE, MEDICAID, SELFPAY ==
[2020-09-14 17:07] VITALS: BMI 81.7
--- NOTE | 2020-09-20 09:13 | NM_ITS ---
CLINICAL: 60-year-old female with reported history of clinical hyperparathyroidism. 99m Tc SESTAMIBI DUAL PHASE PARATHYROID SCINTIGRAPHY COMPARISON: None available FINDINGS: Following the intravenous administration of 27.0 mCi of 99m Tc sestamibi, image acquisitions of the anterior neck at 20 minutes and 2.0 hours post radiopharmaceutical provision reveal: 1. Immediate static blood pool acquisitions demonstrate relatively uniform distribution of the radiopharmaceutical in the right-left thyroid colloid of a vaguely U-shaped thyroid gland. 2. Delayed images depict relatively symmetric incomplete washout of the radiotracer from the persistently defined right-left thyroid beds. There is no evidence of focal retention of the radiopharmaceutical is observed in the right-left anterior neck. NM/Parathyroid Scan IMPRESSION: 1. NEGATIVE 99m Tc SESTAMIBI PARATHYROID IMAGING DUAL PHASE EXAMINATION. 2. There is no definitive typical scintigraphic evidence of parathyroid adenoma on the current evaluation. Incomplete-delayed washout of the radiopharmaceutical from the entire functioning thyroid colloid may be secondary to multinodular goiter, chronic lymphocytic thyroiditis. (Alvarez, Radiographics 19: 601, 1999). Electronically Signed: Roni Olea DO at 22:52 EDT Tel , Service support ,
== END ==
PROVIDERS: PCP Family Medicine; Referring Provider Physician Assistant; Visit Provider Physician Assistant
DX: E21.0 Primary hyperparathyroidism (principal)
CPT/HCPCS: 78070; A9500

== ENCOUNTER 2020-10-06 11:27 | Emergency (ER) | payer MEDICARE, MEDICAID, SELFPAY ==
[2020-10-06 11:32] VITALS: BP 142/48; PULSE 88; RESP 20; TEMP 36.7; O2SAT 95; BMI 82.3
[2020-10-06] MEDS: 0.9% Normal Saline 1,000 ML 150 ML IV (12:18)
[2020-10-06 12:23] LABS: Absolute Lymphocyte Count 0.79 X10^3/uL (0.83-4.51); Absolute Neutrophil Count 3.6 X10^3/uL (2.0-7.7); Basophil# 0.01 X10^3/uL; Basophil% 0.2 % (0-1); Eosinophil# 0.07 X10^3/uL; Eosinophils% 1.5 % (0-5); Hemoglobin 12.6 g/dL (12.0-15.0); Lymphocyte # 0.79 X10^3/ul (0.83-4.51); Lymphocyte % 16.6 % (19-41); Mean Corp Hgb Conc 32.3 g/dL (32-36); Mean Corpuscular Hgb 28.9 pg (27.0-32.0); Mean Corpuscular Volume 89.4 fL (81-99); Mean Platelet Vol. 10.8 fl (6.2-12.0); Monocyte# 0.28 X10^3/uL; Monocyte% 5.9 % (0-10); NRBC Flagged by Analyzer 0 % (0-5); Neutrophil # 3.61 X10^3/uL (2.7-7.7); Neutrophil % 75.6 % (47-70); Platelet Count 209 K/mm3 (150-450); RBC Distribution Width CV 12.8 % (11.6-14.6); Red Blood Count 4.36 M/mm3 (4.2-5.4); White Blood Count 4.8 K/mm3 (4.4-11.0)
[2020-10-06 12:37] LABS: Anion Gap 4 (5-15); BUN 18 mg/dL (7-18); BUN/Creat Ratio 32.8 RATIO (10-20); Calcium,Total 11.1 mg/dL (8.5-10.1); Chloride 104 mmol/L (98-107); Creatinine, Serum 0.55 mg/dL (0.55-1.02); EST Glomerular Filtration Rate 120 mL/min (>60); Est Glom Filt Rate - Afr Amer 145 mL/min (>60); Glucose 145 mg/dL (74-106); Potassium 4.1 mmol/L (3.5-5.1); Sodium Level 142 mmol/L (136-145)
[2020-10-06 13:42] VITALS: BP 156/91
--- NOTE | 2020-10-06 14:38 | EX.ED.DYSGE1 ---
HPI History of Present Illness Chief Complaint: Abn Labs Informant: patient Narrative Narrative: Patient advised to go to the emergency room today secondary to abnormal blood work. Patient states that her calcium and parathyroid levels were high when she had blood work drawn yesterday. Patient states that overall she is just felt very tired for the last month. She does complain of body aches. No fever or chills. She is already on diuretic, Lasix 80 mg every morning. [facility] Medical History Anxiety and depression Chronic back pain COPD (chronic obstructive pulmonary disease) Diabetes mellitus, type II Esophageal reflux Essential hypertension Exertional dyspnea Heart failure History of DVT (deep vein thrombosis) Immobility Lumbosacral neuritis Mixed hyperlipidemia Morbid obesity JEREMÍAS treated with BiPAP Peripheral neuropathy Pulmonary hypertension Sepsis SVT (supraventricular tachycardia) Home Medications duloxetine 60 mg PO DAILY 12/02/14 [History Last Taken 09/14/20] aripiprazole 10 mg PO QHS 10/21/17 [History Last Taken 09/13/20] cholecalciferol (vitamin D3) 50 mcg (2,000 unit) capsule 5,000 unit PO DAILY 04/09/19 [History Last Taken 09/13/20] pravastatin 20 mg tablet 20 mg PO QHS 04/09/19 [History Last Taken 09/13/20] famotidine 40 mg PO DAILY 11/08/19 [History Last Taken 09/14/20] insulin glargine 25 unit SQ BID 11/08/19 [History Last Taken 09/14/20] hydrocodone-acetaminophen [[place]] 1 tab PO BID PRN 06/29/20 [History Last Taken 09/11/20] metformin 500 mg PO DAILY 06/29/20 [History Last Taken 09/14/20] potassium chloride 10 meq PO DAILY 06/29/20 [History Last Taken 09/14/20] acetaminophen 650 mg PO TID PRN 09/14/20 [History Last Taken 09/13/20] cephalexin [Keflex] 750 mg PO Q6H #40 cap 09/14/20 [Rx Last Taken Unknown] furosemide 80 mg PO DAILY 09/14/20 [History Last Taken 09/14/20] spironolactone 50 mg PO DAILY 09/14/20 [History Last Taken 09/14/20] trazodone 100 mg PO QHS 09/14/20 [History Last Taken 09/13/20] Allergy/AdvReac Type Severity Reaction Status Date / Time vancomycin Allergy Rash Verified 09/14/20 17:12 atorvastatin AdvReac Severe myalgias Verified 09/14/20 17:12 amlodipine AdvReac Unknown Verified 09/14/20 17:12 atenolol AdvReac Unknown Verified 09/14/20 17:12 bupropion HCl AdvReac Unknown Verified 09/14/20 17:12 [From Wellbutrin] fluoxetine HCl [From Prozac] AdvReac Unknown Verified 09/14/20 17:12 meloxicam [From Mobic] AdvReac Unknown Verified 09/14/20 17:12 metoprolol AdvReac Unknown Verified 09/14/20 17:12 pregabalin [From Lyrica] AdvReac Unknown Verified 09/14/20 17:12 quetiapine fumarate AdvReac Unknown Verified 09/14/20 17:12 [From Seroquel] quinapril HCl [From Accupril] AdvReac Unknown Verified 09/14/20 17:12 risperidone AdvReac Unknown Verified 09/14/20 17:12 rofecoxib [From Vioxx] AdvReac Unknown Verified 09/14/20 17:12 sitagliptin phosphate AdvReac Unknown Verified 09/14/20 17:12 [From Januvia] venlafaxine HCl AdvReac Unknown Verified 09/14/20 17:12 [From Effexor] Family History Mother Hypertension CVA (cerebral vascular accident) Diabetes Heart disease Father Hypertension COPD (chronic obstructive pulmonary disease) Sister Hypertension Sister Hypertension Diabetes Brother Hypertension Diabetes Brother Hypertension Diabetes Brother Hypertension CAD (coronary artery disease) History of coronary artery bypass surgery, Onset Age: 48 Diabetes Surgical History History of hernia repair History of laparoscopic cholecystectomy History of left heart catheterization (LHC) (~05/23/12) Social History Smoking Status: Former smoker alcohol intake: never substance use type: does not use ROS ROS ED Constitutional Constitutional ED: Denies chills or fever(s) Eyes Eyes: Denies change in vision ENT ENT ED: Denies rhinorrhea or sore throat Cardiovascular Cardiovascular: Denies chest pain Respiratory/Chest Respiratory/Chest: Denies cough or dyspnea Gastrointestinal Gastrointestinal: Denies abdominal pain or vomiting Genitourinary Genitourinary ED: Denies dysuria Musculoskeletal Musculoskeletal: Reports arthralgias, back pain and myalgias Integumentary Denies rash Endocrine Endocrinology: Denies polydipsia or polyuria Allergic/Immunologic Allergic/Immunologic ED: Denies urticaria EXAM Physical Exam Const Vital Signs: 10/06/20 11:32 10/06/20 13:42 Temperature 98.1 F Temperature Source Oral Pulse Rate 88 Respiratory Rate 20 H Blood Pressure 142/48 H 156/91 H Blood Pressure Mean 79 112 Pulse Ox 95 Oxygen Delivery Method Room Air Positive well nourished and well developed General Appearance ED: well developed HEENT Reports normocephalic and head/scalp atraumatic Eyes PERRL and EOMs intact bilaterally Neck supple Chest Wall inspection of chest normal and palpation of chest normal Resp normal respiratory effort and clear to auscultation bilaterally Cardio regular rate and regular rhythm GI normal to inspection, nondistended, normoactive bowel sounds Palpation: soft Extremity normal to inspection General Extremety ED: Yes edema General Extremity: edema Neuro oriented x3 Neuro Narrative: No focal neuro deficits. Sensorium / Orientation: alert Psych mental status grossly normal Skin no rashes or lesions noted MDM MDM MDM Narrative Medical decision making narrative: Patient's labs from yesterday reviewed. Her ionized calcium is 1.57 and normalized calcium is 1.55. Her PTH is elevated at 137. I was able to find a parathyroid nuclear medicine scan done earlier this month. It was unremarkable. CBC and BMP are obtained here. Patient is given a liter IV fluid. Lab Data Attestation: I reviewed the patient's lab results. Labs: Laboratory Results - last 24 hr 10/06/20 10/06/20 12:15 12:15 WBC 4.8 RBC 4.36 Hgb 12.6 Hct 39.0 MCV 89.4 MCH 28.9 MCHC 32.3 RDW Std Deviation 42.0 RDW Coeff of Kaity 12.8 Plt Count 209 MPV 10.8 Immature Gran % (Auto) 0.200 Neut % (Auto) 75.6 H Lymph % (Auto) 16.6 L Cameron % (Auto) 5.9 Eos % (Auto) 1.5 Baso % (Auto) 0.2 Absolute Neuts (auto) 3.6 Absolute Lymphs (auto) 0.79 L Nucleated RBC % 0 Sodium 142 Potassium 4.1 Chloride 104 Carbon Dioxide 34.0 H Anion Gap 4 L BUN 18 Creatinine 0.55 Estim Creat Clear Calc 317.48 Est GFR (MDRD) Af Amer 145 Est GFR (MDRD) Non-Af 120 BUN/Creatinine Ratio 32.8 H Glucose 145 H Calcium 11.1 H Treatment and Re-Evaluation Comments:: Lab results are reviewed. Total calcium is 11.1 which appears to be consistent with her values for the last year and a half. I spoke with Dr. Negro, her primary care physician. He stated that the nursing staff were called to check on her was concerned that she was not very conversant and sleepy. Patient is alert at this time and is able to provide full history. Patient is currently on [place] twice daily. I advised her she could take this every 6 hours to help with her body aches and pain. Dr. Negro is going to make arrangements to have patient followed up with endocrinology. Discharge Plan Triage Chief Complaint: Abn Labs ED Provider: Dilia Lozano Dx/Rx/DC Orders Clinical Impression: Hypercalcemia Instructions: Hypercalcemia Dc Prescriptions: No Action pravastatin 20 mg tablet 20 mg PO QHS RF: 0 cholecalciferol (vitamin D3) 50 mcg (2,000 unit) capsule 5,000 unit PO DAILY RF: 0 duloxetine 60 MG capsule,delayed release(DR/EC) 60 mg PO DAILY RF: 0 aripiprazole 10 MG tablet 10 mg PO QHS RF: 0 famotidine 40 MG tablet 40 mg PO DAILY RF: 0 insulin glargine 100 UNIT/ML insulin pen 25 unit SQ BID RF: 0 metformin 500 mg Tablet 500 mg PO DAILY RF: 0 potassium chloride 10 mEq Capsule, Extended Release 10 meq PO DAILY RF: 0 hydrocodone-acetaminophen [[place]] 5-325 mg Tablet 1 tab PO BID PRN (Reason: Pain) RF: 0 cephalexin [Keflex] 750 mg capsule 750 mg PO Q6H Qty: 40 RF: 0 acetaminophen 650 mg tablet extended release 650 mg PO TID PRN (Reason: Pain) RF: 0 furosemide 80 mg tablet 80 mg PO DAILY RF: 0 trazodone 100 mg tablet 100 mg PO QHS RF: 0 spironolactone 50 mg tablet 50 mg PO DAILY RF: 0 Primary Care Provider: Vincent Negro Referrals: Vincent Negro MD [Primary Care Provider] - As soon as possible Activity Restrictions/Additional Instructions: I discussed her case with Dr. Negro. He will be making a referral for you to see an supervisor slate splitting. Disposition Disposition: Home, Self Care
[2020-10-06] MEDS: HYDROcodone Bitartrate/Apap 5/325 Tablet PO (15:01)
[2020-10-06 15:06] VITALS: BP 148/65; PULSE 82; RESP 18
== END 2020-10-06 16:24 | disposition home or self-care (01) ==
PROVIDERS: Emergency Provider Emergency Medicine; PCP Family Medicine
DX: E83.52 Hypercalcemia (principal); E11.42 Type 2 diabetes mellitus with diabetic polyneuropathy; J44.9 Chronic obstructive pulmonary disease, unspecified; I11.0 Hypertensive heart disease with heart failure; I50.9 Heart failure, unspecified; E78.2 Mixed hyperlipidemia; G47.33 Obstructive sleep apnea (adult) (pediatric); I47.1 Supraventricular tachycardia; I27.20 Pulmonary hypertension, unspecified; K21.00 Gastro-esophageal reflux disease with esophagitis, without bleeding; F32.9 Major depressive disorder, single episode, unspecified; F41.9 Anxiety disorder, unspecified; E66.01 Morbid (severe) obesity due to excess calories; Z68.45 Body mass index [BMI] 70 or greater, adult; Z79.4 Long term (current) use of insulin; Z79.899 Other long term (current) drug therapy; Z87.891 Personal history of nicotine dependence
CPT/HCPCS: 80048; 85025; 96360; 96361; 99284; J7030

== ENCOUNTER → 2020-11-08 14:42 | Outpatient (CLI) | payer MEDICARE, MEDICAID, SELFPAY ==
[2020-11-08 16:54] LABS: Calcium,Total 11.9 mg/dL (8.5-10.1)
[2020-11-08 17:03] LABS: Vitamin D,25 Hydroxy 35.5 ng/mL
[2020-11-09 08:27] LABS: PTHIN 125.6 pg/mL (18.4-80.1)
== END ==
PROVIDERS: PCP Family Medicine; Referring Provider Internal Medicine Endocrinology, Diabetes & Metabolism; Visit Provider Internal Medicine Endocrinology, Diabetes & Metabolism
DX: E21.3 Hyperparathyroidism, unspecified (principal); E55.9 Vitamin D deficiency, unspecified
CPT/HCPCS: 36415; 82306; 82310; 83970

== ENCOUNTER 2021-01-19 15:52 | Emergency (ER) | payer MEDICARE, MEDICAID, SELFPAY ==
[2021-01-19 15:54] VITALS: BP 152/81; PULSE 78; RESP 16; TEMP 36.1; O2SAT 98; BMI 78.3
--- NOTE | 2021-01-19 16:52 | EDS_ITS ---
HPI History of Present Illness Chief Complaint: Back Detail of Chief Complaint: Neck pain Informant: patient Onset/Context/Timing Onset: Today Context: Gradual Onset Current Severity: Moderate Maximum Severity: Moderate Narrative Narrative: Patient presents secondary to neck pain. She states she was seen in [place] today for thyroid scan. She had a swallow 2 tablets and then lay on a table for a scan. Approximately half hour after taking the tablets she started getting tightness in the back of her neck. She states it feels like her neck is being drawn backwards. She has not taken anything for pain. She has no pain rating to her arms and no paresthesias. There is no direct trauma. [facility] Medical History Anxiety and depression Chronic back pain COPD (chronic obstructive pulmonary disease) Diabetes mellitus, type II Esophageal reflux Essential hypertension Exertional dyspnea Heart failure History of DVT (deep vein thrombosis) Hyperparathyroidism Immobility Lumbosacral neuritis Mixed hyperlipidemia Morbid obesity JEREMÍAS treated with BiPAP Peripheral neuropathy Pulmonary hypertension Sepsis SVT (supraventricular tachycardia) Vitamin D deficiency Home Medications duloxetine 60 mg PO DAILY 12/02/14 [History Last Taken 09/14/20] aripiprazole 10 mg PO QHS 10/21/17 [History Last Taken 09/13/20] cholecalciferol (vitamin D3) 50 mcg (2,000 unit) capsule 5,000 unit PO DAILY 04/09/19 [History Last Taken 09/13/20] pravastatin 20 mg tablet 20 mg PO QHS 04/09/19 [History Last Taken 09/13/20] famotidine 40 mg PO DAILY 11/08/19 [History Last Taken 09/14/20] insulin glargine 25 unit SQ BID 11/08/19 [History Last Taken 09/14/20] hydrocodone-acetaminophen [[place]] 1 tab PO BID PRN 06/29/20 [History Last Taken 09/11/20] metformin 500 mg PO DAILY 06/29/20 [History Last Taken 09/14/20] potassium chloride 10 meq PO DAILY 06/29/20 [History Last Taken 09/14/20] acetaminophen 650 mg PO TID PRN 09/14/20 [History Last Taken 09/13/20] cephalexin [Keflex] 750 mg PO Q6H #40 cap 09/14/20 [Rx Last Taken Unknown] furosemide 80 mg PO DAILY 09/14/20 [History Last Taken 09/14/20] spironolactone 50 mg PO DAILY 09/14/20 [History Last Taken 09/14/20] trazodone 100 mg PO QHS 09/14/20 [History Last Taken 09/13/20] lidocaine [Lidoderm] 1 patch TOPICAL DAILY #6 ea 01/19/21 [Rx Last Taken Unknown] Allergy/AdvReac Type Severity Reaction Status Date / Time vancomycin Allergy Rash Verified 01/19/21 15:54 atorvastatin AdvReac Severe myalgias Verified 01/19/21 15:54 amlodipine AdvReac Unknown Verified 01/19/21 15:54 atenolol AdvReac Unknown Verified 01/19/21 15:54 bupropion HCl AdvReac Unknown Verified 01/19/21 15:54 [From Wellbutrin] fluoxetine HCl [From Prozac] AdvReac Unknown Verified 01/19/21 15:54 meloxicam [From Mobic] AdvReac Unknown Verified 01/19/21 15:54 metoprolol AdvReac Unknown Verified 01/19/21 15:54 pregabalin [From Lyrica] AdvReac Unknown Verified 01/19/21 15:54 quetiapine fumarate AdvReac Unknown Verified 01/19/21 15:54 [From Seroquel] quinapril HCl [From Accupril] AdvReac Unknown Verified 01/19/21 15:54 risperidone AdvReac Unknown Verified 01/19/21 15:54 rofecoxib [From Vioxx] AdvReac Unknown Verified 01/19/21 15:54 sitagliptin phosphate AdvReac Unknown Verified 01/19/21 15:54 [From Januvia] venlafaxine HCl AdvReac Unknown Verified 01/19/21 15:54 [From Effexor] Family History Mother Hypertension CVA (cerebral vascular accident) Diabetes Heart disease Father Hypertension COPD (chronic obstructive pulmonary disease) Sister Hypertension Sister Hypertension Diabetes Brother Hypertension Diabetes Brother Hypertension Diabetes Brother Hypertension CAD (coronary artery disease) History of coronary artery bypass surgery, Onset Age: 48 Diabetes Surgical History History of hernia repair History of laparoscopic cholecystectomy History of left heart catheterization (LHC) (~05/23/12) Social History Smoking Status: Former smoker alcohol intake: never substance use type: does not use ROS ROS ED Constitutional Constitutional ED: Denies chills or fever(s) Eyes Eyes: Denies change in vision ENT ENT ED: Denies sore throat Cardiovascular Cardiovascular: Denies chest pain Respiratory/Chest Respiratory/Chest: Denies cough or dyspnea Gastrointestinal Gastrointestinal: Denies abdominal pain, diarrhea, nausea or vomiting Genitourinary Genitourinary ED: Denies dysuria Musculoskeletal Musculoskeletal: Reports neck pain; Denies back pain Integumentary Denies rash Neurologic Neurologic: Denies headache(s), paresthesias or weakness Psychiatric Psychiatric: Denies anxiety or depression EXAM Physical Exam Const Vital Signs: 01/19/21 15:54 Temperature 97.0 F L Temperature Source Temporal Pulse Rate 78 Respiratory Rate 16 Blood Pressure 152/81 H Blood Pressure Mean 104 Pulse Ox 98 Oxygen Delivery Method Room Air Positive obese Nutritional Appearance: obese HEENT Reports moist mucous membranes Eyes PERRL and EOMs intact bilaterally Neck supple Chest Wall inspection of chest normal and palpation of chest normal Resp normal respiratory effort and clear to auscultation bilaterally Cardio regular rate and regular rhythm GI non-tender Palpation: soft Back/Spine Back/Spine Narrative: Reproducible tenderness in the cervical paraspinal muscles of the lower cervical spine. No midline tenderness. Extremity normal to inspection Neuro oriented x3 Sensorium / Orientation: alert Skin no rashes or lesions noted and no wounds MDM MDM MDM Narrative Medical decision making narrative: Patient was given a tab of [place], Flexeril, and Lidoderm patch placed on her lower neck. Treatment and Re-Evaluation Comments:: On repeat evaluation patient reports symptoms are much improved. With no trauma or direct injury do not believe imaging is needed at this time. Patient has [place] as well as a muscle relaxer at home that she can use. I will write her for Lidoderm patches. Discharge Plan Triage Chief Complaint: Back ED Provider: Dilia Lozano Dx/Rx/DC Orders Clinical Impression: Neck muscle spasm Instructions: ED Neck Spasm, No Trauma Prescriptions: New lidocaine [Lidoderm] 5 % adhesive patch,medicated 1 patch topical DAILY Qty: 6 RF: 0 No Action pravastatin 20 mg tablet 20 mg PO QHS RF: 0 cholecalciferol (vitamin D3) 50 mcg (2,000 unit) capsule 5,000 unit PO DAILY RF: 0 duloxetine 60 MG capsule,delayed release(DR/EC) 60 mg PO DAILY RF: 0 aripiprazole 10 MG tablet 10 mg PO QHS RF: 0 famotidine 40 MG tablet 40 mg PO DAILY RF: 0 insulin glargine 100 UNIT/ML insulin pen 25 unit SQ BID RF: 0 metformin 500 mg Tablet 500 mg PO DAILY RF: 0 potassium chloride 10 mEq Capsule, Extended Release 10 meq PO DAILY RF: 0 hydrocodone-acetaminophen [[place]] 5-325 mg Tablet 1 tab PO BID PRN (Reason: Pain) RF: 0 cephalexin [Keflex] 750 mg capsule 750 mg PO Q6H Qty: 40 RF: 0 acetaminophen 650 mg tablet extended release 650 mg PO TID PRN (Reason: Pain) RF: 0 furosemide 80 mg tablet 80 mg PO DAILY RF: 0 trazodone 100 mg tablet 100 mg PO QHS RF: 0 spironolactone 50 mg tablet 50 mg PO DAILY RF: 0 Primary Care Provider: Vincent Negro Referrals: Vincent Negro MD [Primary Care Provider] - 1 Week if not improving Disposition Disposition: Home, Self Care
[2021-01-19] MEDS: HYDROcodone Bitartrate/Apap 5/325 Tablet PO (17:17)
[2021-01-19] MEDS: cycloBENZAPRine HCl 10 MG Tablet PO (17:17)
[2021-01-19] MEDS: Lidocaine 5% Patch 1 PATCH TOPICAL (17:18)
--- NOTE | 2021-01-19 18:48 | ED.RN ---
Initially ride @ [id number], ride delayed now ETA of 3-4hrs. Pt aware.
[2021-01-19 20:15] VITALS: RESP 17
== END 2021-01-19 21:05 | disposition home or self-care (01) ==
PROVIDERS: Emergency Provider Emergency Medicine; PCP Family Medicine
DX: M62.838 Other muscle spasm (principal); M54.2 Cervicalgia; E66.9 Obesity, unspecified; G47.33 Obstructive sleep apnea (adult) (pediatric); Z87.891 Personal history of nicotine dependence; Z86.718 Personal history of other venous thrombosis and embolism
CPT/HCPCS: 99285

== ENCOUNTER 2021-03-12 16:42 | Inpatient (IN) | payer MEDICARE, MEDICAID, SELFPAY ==
[2021-03-12 16:24] VITALS: BMI 81.8
--- NOTE | 2021-03-12 16:52 | PCS.PANDOC ---
PANDEMIC DOCUMENTATION INITIATED: Date: 10/04/2020 Time: 190
--- NOTE | 2021-03-12 16:53 | HP.PCM.HOS_ITS ---
HPI - General General Date of Admission: 03/12/21 HPI Narrative KATHLEEN MARTIN, is a 61 F who presents with shortness of breath. Patient has been short of breath for months but got acutely short of breath with worsening shortness of breath over the past day. Patient's went to outside emergency room and had a chest x-ray that was consistent with CHF but also is positive for COVID-19. Patient has been vaccinated but has not yet received a booster. Patient was treated with aerosols, dexamethasone, 80 mg of furosemide. Patient patient was noted to be 97% room air but dropped down to 85% so decision was to admit the patient. Patient was accepted and transferred here. [facility] Medical History Anxiety and depression Chronic back pain COPD (chronic obstructive pulmonary disease) Diabetes mellitus, type II Esophageal reflux Essential hypertension Exertional dyspnea Heart failure History of DVT (deep vein thrombosis) Hyperparathyroidism Immobility Lumbosacral neuritis Mixed hyperlipidemia Morbid obesity JEREMÍAS treated with BiPAP Peripheral neuropathy Pulmonary hypertension Sepsis SVT (supraventricular tachycardia) Vitamin D deficiency Home Medications duloxetine 60 mg PO DAILY 12/02/14 [History Last Taken 03/12/21 09:00] aripiprazole 10 mg PO QHS 10/21/17 [History Last Taken 03/11/21 21:00] cholecalciferol (vitamin D3) 50 mcg (2,000 unit) capsule 5,000 unit PO DAILY 04/09/19 [History Last Taken 03/12/21 09:00] pravastatin 20 mg tablet 20 mg PO QHS 04/09/19 [History Last Taken 09/13/20] famotidine 40 mg PO DAILY 11/08/19 [History Last Taken 03/12/21 09:00] insulin glargine 25 unit SQ BID 11/08/19 [History Last Taken 09/14/20] hydrocodone-acetaminophen [[place]] 1 tab PO BID PRN 06/29/20 [History Last Taken 03/11/21 09:00] metformin 500 mg PO DAILY 06/29/20 [History Last Taken 09/14/20] potassium chloride 10 meq PO DAILY 06/29/20 [History Last Taken 09/14/20] acetaminophen 650 mg PO TID PRN 09/14/20 [History Last Taken 03/11/21] cephalexin [Keflex] 750 mg PO Q6H #40 cap 09/14/20 [Rx Last Taken Unknown] furosemide 80 mg PO DAILY 09/14/20 [History Last Taken 03/12/21 09:00] spironolactone 50 mg PO DAILY 09/14/20 [History Last Taken 03/12/21] trazodone 100 mg PO QHS 09/14/20 [History Last Taken 09/13/20] lidocaine [Lidoderm] 1 patch TOPICAL DAILY #6 ea 01/19/21 [Rx Last Taken Unknown] Allergy/AdvReac Type Severity Reaction Status Date / Time vancomycin Allergy Rash Verified 01/19/21 15:54 atorvastatin AdvReac Severe myalgias Verified 01/19/21 15:54 amlodipine AdvReac Unknown Verified 01/19/21 15:54 atenolol AdvReac Unknown Verified 01/19/21 15:54 bupropion HCl AdvReac Unknown Verified 01/19/21 15:54 [From Wellbutrin] fluoxetine HCl [From Prozac] AdvReac Unknown Verified 01/19/21 15:54 meloxicam [From Mobic] AdvReac Unknown Verified 01/19/21 15:54 metoprolol AdvReac Unknown Verified 01/19/21 15:54 pregabalin [From Lyrica] AdvReac Unknown Verified 01/19/21 15:54 quetiapine fumarate AdvReac Unknown Verified 01/19/21 15:54 [From Seroquel] quinapril HCl [From Accupril] AdvReac Unknown Verified 01/19/21 15:54 risperidone AdvReac Unknown Verified 01/19/21 15:54 rofecoxib [From Vioxx] AdvReac Unknown Verified 01/19/21 15:54 sitagliptin phosphate AdvReac Unknown Verified 01/19/21 15:54 [From Januvia] venlafaxine HCl AdvReac Unknown Verified 01/19/21 15:54 [From Effexor] Family History Mother Hypertension CVA (cerebral vascular accident) Diabetes Heart disease Father Hypertension COPD (chronic obstructive pulmonary disease) Sister Hypertension Sister Hypertension Diabetes Brother Hypertension Diabetes Brother Hypertension Diabetes Brother Hypertension CAD (coronary artery disease) History of coronary artery bypass surgery, Onset Age: 48 Diabetes Surgical History History of hernia repair History of laparoscopic cholecystectomy History of left heart catheterization (LHC) (~05/23/12) Social History Smoking Status: Former smoker alcohol intake: never substance use type: does not use ROS ROS Narrative Cough. No anosmia no dysgeusia. Lower extremity edema. Patient has changes to use her skin on her buttocks as well as petechiae in her lower extremities which is chronic for her. All review of systems were negative except as mentioned above in the history of present illness and the other review of systems. Vital Signs Vital Signs Vital Signs: Weight Weight: 183.9 kg Body Mass Index (BMI) 81.8 Physical Exam Const alert Constitutional Narrative: Morbidly obese. Afebrile. No respiratory distress. No conversational dyspnea. General Appearance: cooperative HEENT normocephalic and head/scalp atraumatic Eyes Eyes Narrative: No icterus Neck Neck Narrative: Redundant neck tissue. No thyromegaly. Unable to visualize any JVD. Resp normal respiratory effort and no retractions Resp Narrative: Coarse breath sounds bilaterally limited by body habitus Cardio regular rate and regular rhythm Cardio Narrative: Distant heart sounds limited by body habitus GI normal to inspection, nondistended, normoactive bowel sounds, soft to palpation, non-tender and non-distended GI Narrative: Obese Extremity Extremity Narrative: Trace lower extremity edema Skin Skin Narrative: Slight ecchymosis as well as petechiae in her buttocks. Patient does have petechial rash on her lower extremities Neuro Sensorium / Orientation: awake and alert Psych affect normal Results Medical Records Data Attestation: I reviewed the patient's medical records Medical records narrative: Medical records from outside hospital: Chest x-ray: The report notes large patient body habitus slightly limits assessment. There is no focal consolidation, sizable pleural effusions or pneumothorax. Cardiac silhouette is enlarged. Moderate osteophytes of the spine are present at multiple levels. Impression: Slightly limited study and cardiomegaly. I do not see labs provided but the report was the metabolic panel showing metabolic alkalosis. No lactic acidosis. Serum calcium slightly elevated at 10.9. Troponin negative. Aminotransferases unremarkable. Alk phos mildly elevated. Leukopenia. Not anemic. Not lymphopenic. BNP elevated at 137. Influenza negative. RSV negative. COVID-19 positive. EKG Initial EKG: Attestation: I personally reviewed and interpreted this EKG as follows: Prior EKG tracings: available for review EKG Rhythm Intrepretation: Sinus Rhythm Assessment & Plan Assessment/Plan (1) Acute respiratory failure with hypoxia: (2) CHF exacerbation: QUALIFIERS: Heart failure type: unspecified Qualified Code(s): I50.9 - Heart failure, unspecified (3) COVID-19: (4) Morbid obesity: PLAN: 1. Acute hypoxic respiratory failure Likely multifactorial: Due to CHF plus sleep apnea plus obesity hypoventilation plus COVID-19 Wean oxygen as able 2. Acute CHF exacerbation Suspect preserved ejection fraction Hold oral Lasix and continue with IV furosemide Check echocardiogram 3. COVID-19 pneumonia, acute Onset unclear but likely was the 21st Dexamethasone and remdesivir Patient has been vaccinated but has not yet received the booster. She received the Moderna vaccine. 4. Morbid obesity BMI of 81.9 Complicates care and recovery. Patient advised that morbidly obese patients tend to fare worse with COVID-19 even if they are vaccinated. 5. Diabetes mellitus type 2 Insulin-dependent Continue basal and sliding scale insulin Hold metformin for now 6. Hypercalcemia Per report from outside hospital I do not have the labs available to compare to We will hold cholecalciferol for now 8. VTE prophylaxis with enoxaparin. 9. Shira intertrigo Mild but noted under her pannus Nystatin 10. Lower extremity petechiae and ecchymosis Unclear significance at this time Continue to monitor and follow-up labs Patient notes that this is chronic for her. I am concerned that the ecchymosis that she have may be due to her massive girth and sitting on her buttocks. Charges/Coding Visit Charges Inpatient E&M: 79190 Init Hosp L3
[2021-03-12 17:00] VITALS: BP 112/61; PULSE 70; RESP 18; TEMP 36.9; O2SAT 97
--- NOTE | 2021-03-12 17:08 | ECHOCS_ITS ---
Reason For Study: CHF Procedure This was a 2D Doppler, Color Flow transthoracic echocardiogram. The study was technically difficult. Contrast injection was performed. Exam performed portable in patient room. Echo done with pt sitting in chair. The exam was abbreviated due to the COVID 19 protocol. Left Ventricle Normal LV size. Left ventricular systolic function is normal. The estimated ejection fraction is 55 %. Stage 1 diastolic dysfunction. No regional wall motion abnormalities noted. Right Ventricle Normal RV size. Normal systolic function. Atria Normal left atrium. Normal right atrium. Tricuspid Valve Normal tricuspid valve. Mild (1+) tricuspid valve insufficiency. Pulmonary artery systolic pressure is 36 mmHg. Great Vessels Normal aortic root. Pericardium/Pleural No pericardial effusion. Medication Diluted definity 2.5ml given slow IV push to enhance endocardial definition. MMode/2D Measurements & Calculations LVIDd: 4.5 cm IVSd: 1.2 cm Ao root diam: 3.5 cm LVIDs: 3.5 cm LVPWd: 1.2 cm RVDd: 3.9 cm FS: 22.5 % LAV(MOD-sp4): 57.0 ml LA dimension(2D): 4.2 cm LA A4 area: 20.7 cm2 RA A4 area: 15.9 cm2 Doppler Measurements & Calculations MV E max beau: 88.7 cm/sec Lat Peak E' Beau: 10.1 cm/sec Med Peak E' Beau: 7.4 cm/sec MV A max beau: 93.2 cm/sec E/E' lat: 8.8 E/E' med: 12.0 MV E/A: 0.95 Ao V2 max: 168.7 cm/sec LV V1 max: 111.8 cm/sec TR max beau: 282.7 cm/sec Ao max P.4 mmHg LV V1 max P.0 mmHg TR max P.0 mmHg ECHO/Echo Complete W/ Contrast Interpretation Summary Normal LV size. Left ventricular systolic function is normal. The estimated ejection fraction is 55 %. Stage 1 diastolic dysfunction. Pulmonary artery systolic pressure is 36 mmHg. Contrast injection was performed. Ordering Physician: Zane Boyer Referring Physician: DR NEHEMIAH HERBERT Performed By: Kathie Rios, RDCS, RVT
[2021-03-12 17:36] VITALS: PULSE 70
[2021-03-12] MEDS: 0.9% Saline Lock 10 ML Syringe IV (18:32)
[2021-03-12] MEDS: Furosemide 100 MG/10 ML Vial 80 MG IV (18:32)
[2021-03-12 18:47] LABS: Alkaline Phosphatase 146 U/L (45-117)
[2021-03-12 19:00] VITALS: PULSE 72
[2021-03-12] MEDS: Nystatin Ointment 1 APPLIC TOPICAL (21:42)
[2021-03-12] MEDS: Pravastatin 20 MG Tablet PO (21:45)
[2021-03-12] MEDS: ARIPiprazole 10 MG Tablet PO (21:45)
[2021-03-12] MEDS: traZODone 100 MG Tablet PO (21:45)
[2021-03-12] MEDS: Enoxaparin 40 MG/0.4 ML Syringe SC (21:48)
[2021-03-12 21:53] VITALS: BP 128/60; PULSE 71; RESP 20; TEMP 36.9; O2SAT 97
[2021-03-12 22:06] LABS: Bedside Glucose 269 mg/dL (70-110)
[2021-03-12 22:11] VITALS: O2SAT 96
[2021-03-12 23:09] VITALS: RESP 12; RESP 20; O2SAT 96
[2021-03-13] VITALS (11 sets, daily range): BP systolic 130–169; BP diastolic 59–88; PULSE 65–89; RESP 16–18; TEMP 36.5–37.2; O2SAT 94–100
[2021-03-13] MEDS: Acetaminophen 325 MG Tablet 650 MG PO ×2 (00:23→06:44)
[2021-03-13 03:56] LABS: Bedside Glucose 210 mg/dL (70-110)
--- NOTE | 2021-03-13 03:57 | NURSING ---
Pt stated she was feeling like her blood sugar was low. Took blood glucose, 210.
--- NOTE | 2021-03-13 05:10 | CPS ---
PT DID NOT WANT TO WEAR OUR BIPAP IN THE HOSPITAL WITH COVID. PT IS ON 3L NASAL O2
[2021-03-13] MEDS: Menthol/Lanolin/Calamine/Znox 113 GM Tube 1 APPLIC TOPICAL ×2 (06:28→21:09)
[2021-03-13] MEDS: Insulin Lispro 100 UNIT/ML INSULN.PEN SC ×3 (07:01→16:56)
[2021-03-13 07:10] LABS: Bedside Glucose 155 mg/dL (70-110)
[2021-03-13 07:12] LABS: Absolute Lymphocyte Count 0.85 X10^3/uL (0.83-4.51); Absolute Neutrophil Count 2.5 X10^3/uL (2.0-7.7); Hematocrit 37.1 % (37-47); Hemoglobin 12.5 g/dL (12.0-15.0); Lymphocyte # 0.85 X10^3/ul (0.83-4.51); Mean Corp Hgb Conc 33.7 g/dL (32-36); Mean Corpuscular Hgb 29.5 pg (27.0-32.0); Mean Corpuscular Volume 87.5 fL (81-99); Mean Platelet Vol. 11.4 fl (6.2-12.0); Monocyte# 0.49 X10^3/uL; Monocyte% 12.7 % (0-10); NRBC Flagged by Analyzer 0 % (0-5); Neutrophil % 64.8 % (47-70); Platelet Count 182 K/mm3 (150-450); RBC Distribution Width CV 12.5 % (11.6-14.6); RBC Distribution Width SD 39.9 fl (35.1-43.9); Red Blood Count 4.24 M/mm3 (4.2-5.4); White Blood Count 3.9 K/mm3 (4.4-11.0)
[2021-03-13 07:53] LABS: AST(SGOT) 21 U/L (15-37); Alanine Aminotransfer ALT/SGPT 29 U/L (13-56); Albumin, Serum 3.1 g/dL (3.2-5.0); Alkaline Phosphatase 136 U/L (45-117); Anion Gap 5 (5-15); BUN 16 mg/dL (7-18); BUN/Creat Ratio 34.5 RATIO (10-20); Calcium,Total 9.9 mg/dL (8.5-10.1); Chloride 101 mmol/L (98-107); Cholesterol 119 mg/dL (200); Creatinine, Serum 0.46 mg/dL (0.55-1.02); EST Glomerular Filtration Rate 145 mL/min (>60); Est Glom Filt Rate - Afr Amer 176 mL/min (>60); Globulin 3.1 g/dL (2.2-4.2); Glucose 179 mg/dL (74-106); High Density Lipoprotein 45 mg/dL; Potassium 3.3 mmol/L (3.5-5.1); Protein, Total 6.2 g/dL (6.4-8.2); Sodium Level 137 mmol/L (136-145); Thyroid Stim Hormone (TSH) 0.49 uIU/mL (0.358-3.74); Triglycerides 156 mg/dL; Very Low Density Lipoprotein 31 mg/dL (5-40)
[2021-03-13 09:40] LABS: Hemoglobin A1c 7.3 % (3.8-5.6)
[2021-03-13] MEDS: dexAMETHasone 4 MG Tablet 6 MG PO (10:40)
[2021-03-13] MEDS: DULoxetine Hcl 60 MG Capsule PO (10:40)
[2021-03-13] MEDS: Famotidine 20 MG Tablet 40 MG PO (10:40)
[2021-03-13] MEDS: Furosemide 100 MG/10 ML Vial 80 MG IV (10:42)
[2021-03-13] MEDS: 0.9% Saline Lock 10 ML Syringe IV (10:43)
[2021-03-13] MEDS: Enoxaparin 40 MG/0.4 ML Syringe SC ×2 (10:49→21:08)
[2021-03-13] MEDS: Nystatin Ointment 1 APPLIC TOPICAL ×2 (10:50→21:06)
[2021-03-13 11:50] LABS: Bedside Glucose 216 mg/dL (70-110)
--- NOTE | 2021-03-13 13:11 | PN.HOSP_ITS ---
Subjective Subjective Breathing much better. Lower extremity edema much better. [place] woozy when she stood up today. Had not had a chance to work with therapy yet. Objective Data Objective Data Vital Signs: Vital Signs Temp Pulse Resp BP Pulse Ox 36.5 C L 73 18 141/60 H 96 03/13/21 09:30 03/13/21 11:00 03/13/21 09:30 03/13/21 09:30 03/13/21 09:30 Oxygen Flow Rate (L/min) 2 Oxygen Delivery Method Room Air Weight: 181.3 kg Body Mass Index (BMI) 81.8 Intake & Output: Intake and Output for Last 24 Hours 03/11/21 03/12/21 03/13/21 23:59 23:59 23:59 Intake Total 480 / 720 960 / 960 Output Total 450 / 1950 2975 / 2975 Balance -2014 / Lab / Micro Data Result Diagrams: 03/13/21 05:42 03/13/21 05:42 Labs: Laboratory Results - last 24 hr 03/12/21 17:53: Alkaline Phosphatase 146 H 03/12/21 21:41: POC Glucose 269 H 03/13/21 03:47: POC Glucose 210 H 03/13/21 05:42: WBC 3.9 L, RBC 4.24, Hgb 12.5, Hct 37.1, MCV 87.5, MCH 29.5, MC HC 33.7, RDW Std Deviation 39.9, RDW Coeff of Kaity 12.5, Plt Count 182, MPV 11.4, Immature Gran % (Auto) 0.500, Neut % (Auto) 64.8, Lymph % (Auto) 22.0, [place] % (Auto) 12.7 H, Eos % (Auto) 0.0, Baso % (Auto) 0.0, Absolute Neuts (auto) 2.5, Absolute Lymphs (auto) 0.85, Nucleated RBC % 0 03/13/21 05:42: Sodium 137, Potassium 3.3 L, Chloride 101, Carbon Dioxide 31.0, Anion Gap 5, BUN 16, Creatinine 0.46 L, Estim Creat Clear Calc 367.58, Est GFR (MDRD) Af Amer 176, Est GFR (MDRD) Non-Af 145, BUN/Creatinine Ratio 34.5 H, Glucose 179 H, Calcium 9.9, Total Bilirubin 0.40, AST 21, ALT 29, Alkaline Phosphatase 136 H, Total Protein 6.2 L, Albumin 3.1 L, Globulin 3.1, Albumin/Globulin Ratio 1.0, Triglycerides 156, Cholesterol 119, LDL Cholesterol 43, VLDL Cholesterol 31, HDL Cholesterol 45, TSH 0.49 03/13/21 05:42: Hemoglobin A1c 7.3 H 03/13/21 07:00: POC Glucose 155 H 03/13/21 11:38: POC Glucose 216 H Physical Exam Const alert and no apparent distress Resp normal respiratory effort, no retractions, no use of accessory muscles and clear to auscultation bilaterally Cardio regular rate, regular rhythm, S1 normal heart sound and S2 normal heart sound GI normal to inspection, nondistended, normoactive bowel sounds, soft to palpation, non-tender, non-distended and hepatosplenomegaly Extremity Extremity Narrative: LE edema Assessment & Plan Assessment/Plan (1) Acute respiratory failure with hypoxia: (2) CHF exacerbation: QUALIFIERS: Heart failure type: unspecified Qualified Code(s): I50.9 - Heart failure, unspecified (3) COVID-19: (4) Morbid obesity: PLAN: 1. Acute hypoxic respiratory failure Improved, now on room air at rest. Likely multifactorial: Due to CHF plus sleep apnea plus obesity hypoventilation plus COVID-19 2. Acute CHF exacerbation Suspect preserved ejection fraction Change oral furosemide to 80 mg twice daily, patient takes it once daily at home, resume spironolactone Check echocardiogram to be performed on the 3. COVID-19 pneumonia, acute Onset unclear but likely was the Dexamethasone and remdesivir Patient has been vaccinated but has not yet received the booster. She received the Moderna vaccine. 4. Morbid obesity BMI of 81.9 Complicates care and recovery. Patient advised that morbidly obese patients tend to fare worse with COVID-19 even if they are vaccinated. 5. Diabetes mellitus type 2 Insulin-dependent Continue basal and sliding scale insulin Hold metformin for now 6. Hypercalcemia Per report from outside hospital I do not have the labs available to compare to We will hold cholecalciferol for now 8. VTE prophylaxis with enoxaparin. 9. Shira intertrigo Mild but noted under her pannus Nystatin 10. Lower extremity petechiae and ecchymosis Unclear significance at this time Continue to monitor and follow-up labs Patient notes that this is chronic for her. I am concerned that the ecchymosis that she have may be due to her massive girth and sitting on her buttocks. 11. Disposition: Overall patient is much improved today. Plan is to check orthostatic vital signs, check echocardiogram as well as therapy evaluation. The patient is overall doing well and no longer dizzy with standing up, patient could potentially be discharged on the . Charges/Coding Visit Charges Inpatient E&M: 88990 Subs Hosp L2
--- NOTE | 2021-03-13 13:35 | NURSING ---
Attempted to obtain orthostatic vitals. Pt able to sit on edge of bed but unable to stand. Lying and sitting vitals documented.
[2021-03-13] MEDS: oxyCODONE 5 MG Tablet PO (15:08)
[2021-03-13] MEDS: Furosemide 80 MG Tablet PO (16:57)
[2021-03-13 17:15] LABS: Bedside Glucose 262 mg/dL (70-110)
[2021-03-13] MEDS: traZODone 100 MG Tablet PO (21:08)
[2021-03-13] MEDS: Pravastatin 20 MG Tablet PO (21:08)
[2021-03-13] MEDS: ARIPiprazole 10 MG Tablet PO (21:14)
[2021-03-13 21:21] LABS: Bedside Glucose 302 mg/dL (70-110)
[2021-03-14] VITALS (7 sets, daily range): BP systolic 131–156; BP diastolic 66–93; PULSE 65–85; RESP 18; TEMP 36.4–36.9; O2SAT 94–100
[2021-03-14] MEDS: oxyCODONE 5 MG Tablet PO ×2 (00:15→10:54)
--- NOTE | 2021-03-14 01:48 | CPS ---
Pt doesn't want to wear our bipap unit
[2021-03-14 06:48] LABS: Anion Gap 4 (5-15); BUN 18 mg/dL (7-18); BUN/Creat Ratio 33.7 RATIO (10-20); Calcium,Total 10.4 mg/dL (8.5-10.1); Chloride 102 mmol/L (98-107); Creatinine, Serum 0.53 mg/dL (0.55-1.02); EST Glomerular Filtration Rate 124 mL/min (>60); Est Glom Filt Rate - Afr Amer 149 mL/min (>60); Estimated Creatinine Clearance 315.87 ml/min; Glucose 205 mg/dL (74-106); Potassium 3.6 mmol/L (3.5-5.1); Sodium Level 138 mmol/L (136-145)
[2021-03-14] MEDS: Insulin Lispro 100 UNIT/ML INSULN.PEN SC ×2 (06:53→11:06)
[2021-03-14 07:00] LABS: Bedside Glucose 189 mg/dL (70-110)
--- NOTE | 2021-03-14 10:44 | NURSING ---
pt only able to ambulate few steps for walking pulse ox but stood for around 1 minute x2 with help of therapy
[2021-03-14] MEDS: dexAMETHasone 4 MG Tablet 6 MG PO (10:53)
[2021-03-14] MEDS: Menthol/Lanolin/Calamine/Znox 113 GM Tube 1 APPLIC TOPICAL (10:54)
[2021-03-14] MEDS: Spironolactone 50 MG Tablet PO (10:54)
[2021-03-14] MEDS: Famotidine 20 MG Tablet 40 MG PO (10:54)
[2021-03-14] MEDS: Furosemide 80 MG Tablet PO (10:54)
[2021-03-14] MEDS: DULoxetine Hcl 60 MG Capsule PO (10:54)
[2021-03-14] MEDS: Enoxaparin 40 MG/0.4 ML Syringe SC (10:55)
[2021-03-14] MEDS: Nystatin Ointment 1 APPLIC TOPICAL (10:55)
[2021-03-14 11:16] LABS: Bedside Glucose 233 mg/dL (70-110)
--- NOTE | 2021-03-14 11:47 | PCM.DC.SUM ---
Providers Date of Admission: 03/12/21 Primary Care Physician: Dr. Vincent Negro MD Reason For Visit: RESPIRATORY FAILURE,CHF,COVID-19 Diagnosis Discharge Diagnosis (1) Acute respiratory failure with hypoxia: Status: Acute Code(s): J96.01 - Acute respiratory failure with hypoxia (2) CHF exacerbation: Status: Chronic Code(s): I50.9 - Heart failure, unspecified Qualifiers: Heart failure type: unspecified Qualified Code(s): I50.9 - Heart failure, unspecified (3) COVID-19: Status: Acute Code(s): U07.1 - COVID-19 (4) Morbid obesity: Status: Chronic Code(s): E66.01 - Morbid (severe) obesity due to excess calories Medications at Discharge Home Medications duloxetine 60 mg PO DAILY 12/02/14 aripiprazole 10 mg PO QHS 10/21/17 pravastatin 20 mg tablet 20 mg PO QHS 04/09/19 famotidine 40 mg PO DAILY 11/08/19 insulin glargine 25 unit SQ BID 11/08/19 hydrocodone-acetaminophen 1 tab PO BID PRN 06/29/20 metformin 500 mg PO DAILY 06/29/20 potassium chloride 10 meq PO DAILY 06/29/20 acetaminophen 650 mg PO TID PRN 09/14/20 spironolactone 50 mg PO DAILY 09/14/20 trazodone 100 mg PO QHS MDD insomnia 09/14/20 lidocaine [Lidoderm] 1 patch TOPICAL DAILY #6 ea 01/19/21 apixaban [Eliquis] 5 mg PO BID #60 tab 03/14/21 dexamethasone 6 mg PO DAILYCM #7 tab 03/14/21 furosemide 80 mg PO BIDCM #0 tab 03/14/21 Hospital Course Summary of Care Provided Minutes Spent on Discharge: 35 Hospital Course: Patient is a 61-year-old admitted with progressive shortness of breath 1. Acute hypoxic respiratory failure ?Due to combination of obesity hypoventilation syndrome, COVID 19 as well as CHF admitted to a monitored bed for treatment of underlying condition 2. Acute COVID 19 pneumonia ?Patient did receive 2 vaccines but yet to receive the booster. Did receive 2 doses of remdesivir as well as Decadron prescription written for Decadron on discharge 3. Acute congestive heart failure ?Suspected to be secondary to congestive heart failure with preserved ejection fraction. CT echo was ordered did discuss with patient to complete the test as outpatient given her recent Covid 4. Class III obesity with BMI of 79.9 ?Weight loss discussed with patient. Patient was instructed to follow-up with primary care physician to be referred for bariatric surgery consideration 5. Diabetes mellitus type II -patient's oral hypoglycemics held. Placed on long acting insulin, Accu-Cheks a.c. and at bedtime and covered with sliding scale insulin 6. Hypercalcemia ?Patient potassium supplementation discontinued instructed to follow-up with primary care physician for repeat labs within a week 7. Obstructive sleep apnea ?BiPAP at night 8. Obesity hypoventilation syndrome 9. GERD 10. Intertrigo 11. Dyslipidemia Physical Exam Narrative GENERAL: cooperative HEENT: Atraumatic; EYES; Anicteric, Normal Conjunctiva NECK; supple, normal thyroid, RESPIRATORY: Diminished to auscultation CARDIOVASCULAR: Regular S1 S2, GI: soft, normoactive bowel sounds, : No Renal angle tenderness; EXTREMITIES: No edema, no clubbing, MUSCULOSKELETAL: no muscle waisting NEURO: Awake; no lateralizing signs. SKIN: No Rash PSYCH; Flat affect Weight / BMI Weight Weight: 179.5 kg Body Mass Index (BMI) 81.8 ABG / Lab / Microbiology Data Result Diagrams: 03/13/21 05:42 03/14/21 05:36 Laboratory: Laboratory Results - last 24 hr 03/13/21 11:38: POC Glucose 216 H 03/13/21 16:55: POC Glucose 262 H 03/13/21 21:05: POC Glucose 302 H 03/14/21 05:36: Sodium 138, Potassium 3.6, Chloride 102, Carbon Dioxide 32.0, Anion Gap 4 L, BUN 18, Creatinine 0.53 L, Estim Creat Clear Calc 315.87, Est GFR (MDRD) Af Amer 149, Est GFR (MDRD) Non-Af 124, BUN/Creatinine Ratio 33.7 H, Glucose 205 H, Calcium 10.4 H 03/14/21 06:52: POC Glucose 189 H 03/14/21 11:06: POC Glucose 233 H D/C Instructions Discharge Diet: 1800 Calorie Control Diet Discharge Activity: Return to Normal Activity Call your doctor if you observe: Fever of 101 or Higher, Shortness of breath, Fainting spells and Chest pain Meaningful Use Info Meaningful Use Diagnoses (Choose all that apply): None applicable Discharge Plan Admission Admit Date/Time: 03/12/21 16:42 Attending Provider: Adolfo Morgan Primary Care Provider: Vincent Negro Discharge Orders/Prescriptions Prescriptions: New dexamethasone 4 mg Tablet 6 mg PO DAILYCM Qty: 7 RF: 0 Eliquis 5 mg tablet 5 mg PO BID Qty: 60 RF: 0 Continued pravastatin 20 mg tablet 20 mg PO QHS RF: 0 duloxetine 60 MG capsule,delayed release(DR/EC) 60 mg PO DAILY RF: 0 aripiprazole 10 MG tablet 10 mg PO QHS RF: 0 famotidine 40 MG tablet 40 mg PO DAILY RF: 0 insulin glargine 100 UNIT/ML insulin pen 25 unit SQ BID RF: 0 metformin 500 mg Tablet 500 mg PO DAILY RF: 0 potassium chloride 10 mEq Capsule, Extended Release 10 meq PO DAILY RF: 0 hydrocodone-acetaminophen 5-325 mg Tablet 1 tab PO BID PRN (Reason: Pain) RF: 0 acetaminophen 650 mg tablet extended release 650 mg PO TID PRN (Reason: Pain) RF: 0 trazodone 100 mg tablet 100 mg PO QHS MDD insomnia RF: 0 spironolactone 50 mg tablet 50 mg PO DAILY RF: 0 lidocaine [Lidoderm] 5 % adhesive patch,medicated 1 patch topical DAILY Qty: 6 RF: 0 Changed furosemide 80 mg tablet 80 mg PO BIDCM Qty: 0 RF: 0 Discontinued cholecalciferol (vitamin D3) 50 mcg (2,000 unit) capsule 5,000 unit PO DAILY RF: 0 cephalexin [Keflex] 750 mg capsule 750 mg PO Q6H Qty: 40 RF: 0 Referrals / Follow Up: Clarita Mathews NP, MERCHANDISING SPECIALIST-C [NON-STAFF] - 03/21/21 1:30 pm Disposition Disposition (needs filled in before D/C Order can be placed): Home, Self Care Charges/Coding Visit Charges Inpatient E&M: 67763 Disch Hosp
--- NOTE | 2021-03-14 12:30 | CASEMGMT ---
LOLY GARCIA Face to Face with patient for initial transition planning/care coordination assessment. RN JOSE introduced self and role at [facility]. Patient lying in bed, alert and oriented. Patient willing to participate in assessment and is able to answer all questions appropriately. Care providers, pharmacy, and demographics verified. Patient wishes to discharge home and would like [facility] for therapy. Patient has had [facility] in the past and would like them again. CM to send referral. Patient states she has no further needs or concerns at this time. CM to follow for discharge planning needs that may arise. PCP: Marky Specialists: Shameka, defensive fire control systems operator; Jolene, auto brake technician [facility]erred [facility]acy[facility] Insurance: [employer] Prescription Benefit: yes Living Will/HPOA: none LNOK: sister Living Arrangements: Patient states she lives alone in a first floor apartment with no steps to enter. Patient states she is independent for toileting. Has aides that assist with bathing and dressing. Transportation: Provide a Ride, [employer] DME/HHC: patient states she has shower chair, raised toilet, hospital bed, lift chair, grab bars, walker, wheelchair, medical alert, bipap, and nebulizer. Patient states she has aides 4x/week 3hrs/day through [employer]. Patient has had [facility] in the past for HHC. No previous SNF Disposition Plan: Patient to discharge home with HHC, [facility] [place], and follow-up plans in place. Janell GARCÍA, RN, CM
--- NOTE | 2021-03-14 12:41 | CASEMGMT ---
REYES called [facility] coverage line. Patient is active with [facility]. Patient's home health care case manager is Ramya Grayson. Patient has a lifeline button, aides through [facility] M-F, and patient gets 14 meals from [employer] a week. REYES Direction [place] know patient is being discharged home with home health today. SW will likely have to arrange transport for patient to get home. Rachel Martinez SENIOR SYSTEMS ENGINEER [place]
--- NOTE | 2021-03-14 12:51 | CASEMGMT ---
Addendum entered by Janell Resendiz 03/14/21 13:53: Per Janell SALCIDO, pt does not qualify for home oxygen at this time. Verenice SALCIDO CM Addendum entered by Janell Resendiz 03/14/21 13:45: Referral to [facility] as pt has [facility] and it will be billed thru [facility] primary. Call to [facility] and they state they can accept pt at this time for PT/OT and pt is known to them. Verenice SALCIDO CM Original Note: Referral faxed to [facility] per pt request for PT/OT. Verenice SALCIDO CM
--- NOTE | 2021-03-14 14:50 | CASEMGMT ---
REYES arranged for patient to get picked up at 1430 via van. REYES notified RN and secretary to board of commissioners. Rachel Martinez SALES MARKETING [place]
== END 2021-03-14 15:08 | disposition home or self-care (01) | DRG 177 ==
PROVIDERS: PCP Family Medicine; Visit Provider Internal Medicine
DX: U07.1 COVID-19 (principal); J96.01 Acute respiratory failure with hypoxia; J12.82 Pneumonia due to coronavirus disease 2019; I50.33 Acute on chronic diastolic (congestive) heart failure; E66.2 Morbid (severe) obesity with alveolar hypoventilation; J44.0 Chronic obstructive pulmonary disease with (acute) lower respiratory infection; Z68.45 Body mass index [BMI] 70 or greater, adult; E11.42 Type 2 diabetes mellitus with diabetic polyneuropathy; B37.2 Candidiasis of skin and nail; I11.0 Hypertensive heart disease with heart failure; Z79.4 Long term (current) use of insulin; E83.52 Hypercalcemia; E78.2 Mixed hyperlipidemia; G47.33 Obstructive sleep apnea (adult) (pediatric); K21.9 Gastro-esophageal reflux disease without esophagitis; G89.29 Other chronic pain; Z87.891 Personal history of nicotine dependence
CPT/HCPCS: 36415; 80048; 80053; 80061; 82962; 83036; 84075; 84443; 85025; 93306; 94002; 97110; 97162; 97166; 97530; 97535; J7040; Q9957; A4216; C8929; J1940

== ENCOUNTER 2021-03-18 21:12 | Inpatient (IN) | payer MEDICARE, MEDICAID, SELFPAY ==
[2021-03-18 21:12] VITALS: BP 135/85; PULSE 124; RESP 25; TEMP 37.7; O2SAT 96; BMI 78.3
[2021-03-18 21:17] VITALS: BP 136/85; PULSE 115; RESP 19; TEMP 37.7; O2SAT 96
--- NOTE | 2021-03-18 21:19 | EKG12_ITS ---
Test Reason : DYSRHYTHMIA Blood Pressure : / mmHG Vent. Rate : 111 BPM Atrial Rate : 111 BPM P-R Int : 138 ms QRS Dur : 084 ms QT Int : 316 ms P-R-T Axes : 051 000 092 degrees QTc Int : 429 ms Sinus tachycardia Left ventricular hypertrophy with repolarization abnormality Abnormal ECG Confirmed by GEO SIMS, SINDI ([id number]), legal editor GRANT SAGASTUME ([id number]) on 03/21/2021 10:21:08 AM Referred By: MAIDA Confirmed By:SINDI GUARDADO MD
[2021-03-18 21:21] VITALS: O2SAT 96
--- NOTE | 2021-03-18 22:00 | RAD_ITS ---
INDICATION: chest pain EXAMINATION/TECHNIQUE: X-RAY - XR Chest 1 View COMPARISON: Chest x-ray 09/14/2020 and 11/13/2019 FINDINGS: LINES/DEVICES: None. There are overlying heart monitoring wires. LUNGS: Subtle increased attenuation right lower lobe without obscuration of the right heart border or right hemidiaphragm. This is suspected to represent some atelectasis due to mildly decreased lung volumes. Alveolar filling process less likely but not completely excluded. Lungs otherwise clear. MEDIASTINUM AND CARDIOVASCULAR STRUCTURES: Normal size and contour of the cardiomediastinal silhouette. No evidence of pulmonary vascular congestion. BONES AND SOFT TISSUES: No abnormality within limits of the exam. RAD/Chest 1 View (Portable) IMPRESSION: 1. Subtle increased attenuation right lower lobe suspected represent atelectasis with alveolar filling process not completely excluded. Electronically Signed: Rene Carrillo DO at 22:16 EST ,
[2021-03-18 22:01] LABS: Absolute Lymphocyte Count 0.53 X10^3/uL (0.83-4.51); Absolute Neutrophil Count 4.2 X10^3/uL (2.0-7.7); Basophil# 0.01 X10^3/uL; Basophil% 0.2 % (0-1); Eosinophil# 0.02 X10^3/uL; Eosinophils% 0.4 % (0-5); Hematocrit 42.8 % (37-47); Hemoglobin 14.1 g/dL (12.0-15.0); Lymphocyte # 0.53 X10^3/ul (0.83-4.51); Lymphocyte % 10.1 % (19-41); Mean Corp Hgb Conc 32.9 g/dL (32-36); Mean Corpuscular Hgb 28.8 pg (27.0-32.0); Mean Corpuscular Volume 87.5 fL (81-99); Mean Platelet Vol. 10.8 fl (6.2-12.0); Monocyte% 9.5 % (0-10); NRBC Flagged by Analyzer 0 % (0-5); Neutrophil # 4.18 X10^3/uL (2.7-7.7); Neutrophil % 79.4 % (47-70); POSITIVE DIFFERENTIAL YES; Platelet Count 158 K/mm3 (150-450); RBC Distribution Width CV 12.7 % (11.6-14.6); RBC Distribution Width SD 40.5 fl (35.1-43.9); Red Blood Count 4.89 M/mm3 (4.2-5.4); White Blood Count 5.3 K/mm3 (4.4-11.0)
[2021-03-18 22:26] LABS: Anion Gap 4 (5-15); BUN 22 mg/dL (7-18); BUN/Creat Ratio 26.3 RATIO (10-20); Calcium,Total 10.5 mg/dL (8.5-10.1); Chloride 96 mmol/L (98-107); Creatinine, Serum 0.84 mg/dL (0.55-1.02); EST Glomerular Filtration Rate 73 mL/min (>60); Est Glom Filt Rate - Afr Amer 89 mL/min (>60); Glucose 216 mg/dL (74-106); Potassium 3.9 mmol/L (3.5-5.1); Sodium Level 136 mmol/L (136-145); Troponin-I HS 21 pg/mL (3.0-54.0)
[2021-03-18] MEDS: HYDROcodone Bitartrate/Apap 5/325 Tablet PO (22:35)
--- NOTE | 2021-03-18 23:02 | HP.PCM.HOS_ITS ---
HPI - General General Date of Admission: 03/18/21 Date of Service: 03/18/21 Chief Complaint: Dyspnea, fatigue, malaise, recent COVID dx. HPI Narrative The patient is a 61 y/o F w/ PMHx: Diastolic CHF, Anxiety and Depression, Chronic back pain, Chronic COPD, Diabetes mellitus type II w/ neuropathy, Morbid Obesity, HTN, HLD, Hx VTE, JEREMÍAS on BIPAP, Hx SVT who presents to the [facility] ED on 03/18/21 w/ history of 03/18/21 with history of COVID diagnosis 03/11/2021 with increasing fatigue, malaise, ongoing cough and oxygen saturations as low as 90% at home prompting ED reevaluation. Her testing was positive in [place]. She uses a lift chair baseline and rollator. She has been unable to even use these items secondary to her weakness. She lives at home alone and is unable to safely care for herself. She notes original onset of Covid type symptoms on 03/09/2021. Work-up in the ED included T 98.4, heart rate 124, BP 135/85, respiratory rate 25, 96% on 2 L nasal cannula, CBC pending upon evaluation, BMP with chloride 96, convex at 36, BUN/creatinine 22/0.84, glucose 216, calcium 10.5, troponin initial 21, chest x-ray with subtle increased attenuation right lower lobe mechanical service representative like atelectasis with alveolar filling process not completely excluded. [facility] Medical History Anxiety and depression Chronic back pain COPD (chronic obstructive pulmonary disease) Diabetes mellitus, type II Esophageal reflux Essential hypertension Exertional dyspnea Heart failure History of DVT (deep vein thrombosis) Hyperparathyroidism Immobility Lumbosacral neuritis Mixed hyperlipidemia Morbid obesity JEREMÍAS treated with BiPAP Peripheral neuropathy Pulmonary hypertension Sepsis SVT (supraventricular tachycardia) Vitamin D deficiency Home Medications duloxetine 60 mg PO DAILY 12/02/14 [History Last Taken 03/12/21 09:00] aripiprazole 10 mg PO QHS 10/21/17 [History Last Taken 03/11/21 21:00] pravastatin 20 mg tablet 20 mg PO QHS 04/09/19 [History Last Taken 03/11/21 21:00] famotidine 40 mg PO DAILY 09/19/20 [History Last Taken 03/12/21 09:00] insulin glargine 25 unit SQ BID 11/08/19 [History Last Taken 03/12/21 09:00] hydrocodone-acetaminophen 1 tab PO BID PRN 06/29/20 [History Last Taken 03/11/21 09:00] metformin 500 mg PO DAILY 06/29/20 [History Last Taken 03/12/21 09:00] potassium chloride 10 meq PO DAILY 06/29/20 [History Last Taken 03/12/21 09:00] acetaminophen 650 mg PO TID PRN 09/14/20 [History Last Taken 03/11/21] spironolactone 50 mg PO DAILY 09/14/20 [History Last Taken 03/12/21] trazodone 100 mg PO QHS MDD insomnia 09/14/20 [History Last Taken 03/11/21 21:00] lidocaine [Lidoderm] 1 patch TOPICAL DAILY #6 ea 01/19/21 [Rx Last Taken Unknown] apixaban [Eliquis] 5 mg PO BID #60 tab 03/14/21 [Rx Last Taken Unknown] dexamethasone 6 mg PO DAILYCM #7 tab 03/14/21 [Rx Last Taken Unknown] furosemide 80 mg PO BIDCM #0 tab 03/14/21 [Rx Last Taken 03/12/21 09:00] Allergy/AdvReac Type Severity Reaction Status Date / Time vancomycin Allergy Rash Verified 03/18/21 21:20 atorvastatin AdvReac Severe myalgias Verified 03/18/21 21:20 amlodipine AdvReac Unknown Verified 03/18/21 21:20 atenolol AdvReac Unknown Verified 03/18/21 21:20 bupropion HCl AdvReac Unknown Verified 03/18/21 21:20 [From Wellbutrin] fluoxetine HCl [From Prozac] AdvReac Unknown Verified 03/18/21 21:20 meloxicam [From Mobic] AdvReac Unknown Verified 03/18/21 21:20 metoprolol AdvReac Unknown Verified 03/18/21 21:20 pregabalin [From Lyrica] AdvReac Unknown Verified 03/18/21 21:20 quetiapine fumarate AdvReac Unknown Verified 03/18/21 21:20 [From Seroquel] quinapril HCl [From Accupril] AdvReac Unknown Verified 03/18/21 21:20 risperidone AdvReac Unknown Verified 03/18/21 21:20 rofecoxib [From Vioxx] AdvReac Unknown Verified 03/18/21 21:20 sitagliptin phosphate AdvReac Unknown Verified 03/18/21 21:20 [From Januvia] venlafaxine HCl AdvReac Unknown Verified 03/18/21 21:20 [From Effexor] Family History Mother Hypertension CVA (cerebral vascular accident) Diabetes Heart disease Father Hypertension COPD (chronic obstructive pulmonary disease) Sister Hypertension Sister Hypertension Diabetes Brother Hypertension Diabetes Brother Hypertension Diabetes Brother Hypertension CAD (coronary artery disease) History of coronary artery bypass surgery, Onset Age: 48 Diabetes Surgical History History of hernia repair History of laparoscopic cholecystectomy History of left heart catheterization (LHC) (~05/23/12) Social History (Updated 03/18/21 @ 23:[address] Gudelia Barron MD) household members: none Smoking Status: Former smoker alcohol intake: never substance use type: does not use ROS ROS Narrative Admission Review of Systems: CONSTITUTIONAL: No weight loss, fever, chills, + weakness or fatigue. HEENT: Eyes: No visual loss, blurred vision, double vision or yellow sclerae. Ears, Nose, Throat: No hearing loss, sneezing, congestion, runny nose or sore throat. SKIN: No rash or itching, lesions, wounds. CARDIOVASCULAR: No chest pain, chest pressure or chest discomfort, palpitations, edema, orthopnea, syncopal events. RESPIRATORY: + shortness of breath, cough without marked sputum, No wheezing, hemoptysis. GASTROINTESTINAL: No anorexia, nausea, vomiting or diarrhea, abdominal pain, melena, BRBPR. GENITOURINARY: No dysuria, frequency, urgency or retention. NEUROLOGICAL: + Generalized weakness/debility, No headache, dizziness, syncope, paralysis, ataxia, numbness or tingling in the extremities, focal weakness, change in bowel or bladder control, seizure. MUSCULOSKELETAL: + muscle, back pain, joint pain or stiffness. HEMATOLOGIC: No anemia, bleeding or bruising. LYMPHATICS: No enlarged nodes. No history of splenectomy. PSYCHIATRIC: + history of depression or anxiety. ENDOCRINOLOGIC: No reports of sweating, cold or heat intolerance. No polyuria or polydipsia. ALLERGIES: No history of asthma, hives, eczema or rhinitis. Vital Signs Vital Signs Vital Signs: 03/18/21 21:12 03/18/21 21:17 03/18/21 21:19 Temperature 99.8 F H 99.8 F H Temperature Source Oral Oral Pulse Rate 124 H 115 H Respiratory Rate 25 H 19 H Respiratory Pattern Normal Blood Pressure 135/85 H 136/85 H Blood Pressure Mean 101 102 Pulse Ox 96 96 Oxygen Delivery Method Nasal Cannula Nasal Cannula Oxygen Flow Rate (L/min) 2 2 03/18/21 21:21 Temperature Temperature Source Pulse Rate Respiratory Rate Respiratory Pattern Blood Pressure Blood Pressure Mean Pulse Ox 96 Oxygen Delivery Method Nasal Cannula Oxygen Flow Rate (L/min) 2 Weight Weight: 387 lb 12.69 oz Body Mass Index (BMI) 78.3 Physical Exam Narrative Physical Examination: General: Awake, alert, oriented x 3 and cooperative, seated upright in the ED bed, fatigued. Skin: Normal color, normal turgor, no icterus, no cyanosis. HEENT: AT/NC, EOMI, PERRLA, mildly dry MM, no carotid bruits or JVD noted; however, thickened neck makes examination difficult. Lungs: Diminished, greater bases, moderate effort, mildly increased respiratory rate, no rales, ronchi or wheezing. Heart: Mildly tachycardic with regular rhythm; no gallop, rub audible. Abdomen: Soft, morbidly obese, NTTP, no obvious distention but difficult to discern given habitus, distant bowel sounds, unable to discern HSM secondary to morbidly obese habitus. Extremities: No cyanosis, no clubbing, bilateral lower extremity edema nonpitting, chronic. Neurological: Patient awake, alert, oriented as noted, cognitive function intact; pupils equally reactive to light and accommodation, cranial nerves II- XII grossly normal, moving all 4 extremities, no focal deficits, strength severely decreased secondary to underlying comorbidities and acute recent COVID diagnosis. Psychiatric: Affect appears fatigued otherwise normal, no acute evidence of depressive or anxiety feelings. Results Lab / Micro Data Result Diagrams: 03/18/21 21:57 03/18/21 21:57 Labs: Laboratory Results - last 24 hr 03/18/21 21:57: Sodium 136, Potassium 3.9, Chloride 96 L, Carbon Dioxide 36.0 H, Anion Gap 4 L, BUN 22 H, Creatinine 0.84, Estim Creat Clear Calc 195.30, Est GFR (MDRD) Af Amer 89, Est GFR (MDRD) Non-Af 73, BUN/Creatinine Ratio 26.3 H, Glucose 216 H, Calcium 10.5 H, Troponin I High Sens 21 Radiology Impression Chest X-Ray 03/18/21 22:00 IMPRESSION: 1. Subtle increased attenuation right lower lobe suspected represent atelectasis with alveolar filling process not completely excluded. Electronically Signed: Rene Carrillo, DO at 22:16 EST , Assessment & Plan Assessment/Plan (1) COVID-19: (2) FTT (failure to thrive) in adult: PLAN: The patient is a 61 y/o F w/ PMHx: Diastolic CHF, Anxiety and Depression, Chronic back pain, Chronic COPD, Diabetes mellitus type II w/ neuropathy, Morbid Obesity, HTN, HLD, Hx VTE, JEREMÍAS on BIPAP, Hx SVT who presents to the [facility] ED on 03/18/21 w/ history of 03/18/21 with history of COVID diagnosis 03/11/2021 with increasing fatigue, malaise, ongoing cough and oxygen saturations as low as 90% at home prompting ED reevaluation. #1. Adult FTT secondary to Recent Acute Bilateral Pneumonia secondary to Acute Viral Syndrome, COVID-19: Will admit to the [facility] given debility, unable to care for self safely, maintain on COVID precautions until completion 10 day timeline 03/19/21, will maintain on oxygen with wean as tolerated to room air, PRN albuterol, HOB, IS parameters, continue supportive care including q 2 hour turning including prone given no prone bed availability and judicious hydration. PT/OT/CM consultations for discharge planning. Suspect likely will need SNF. Fall precautions. #2. Diastolic CHF: 03/14/2021 echocardiogram with normal LV size, normal LV systolic function, EF 55%, stage I diastolic dysfunction, PASP 36 mmHg with contrast injection for performed, continue patient apixaban, statin, Lasix, spironolactone regimen, not on beta-andrea or LIANG inhibitor. #3. Chronic COPD: Not on any routine inhalers, will encourage head of bed, I-S, as needed albuterol if needed. #4. Chronic back pain: Encourage frequent positional changes, would benefit from aggressive outpatient weight loss program. #5. Diabetes mellitus type II with neuropathy: Hold oral home regimen, continue home insulin regimen, ADA diet, accu checks w/ ISS. #6. Hypertension: Continue home regimen including spironolactone, Lasix, PRN hydralazine. #7. Hyperlipidemia: We will continue patient home statin therapy. #8. Anxiety and depression: We will continue patient home group resolved, duloxetine and trazodone regimen. Low threshold to hold nightly trazodone given recent Covid pneumonia. #9. History of VTE: We will continue patient apixaban regimen. #10. Morbid Obesity: Weight loss and lifestyle changes encouraged. #11. GERD: We will continue patient home famotidine regimen. #12. JEREMÍAS: BiPAP nightly. #13. DVT prophylaxis: SCDs, continue Eliquis recently initiated given recent COVID diagnosis and high risk. #14. CODE STATUS: Full code. Charges/Coding Visit Charges OBSV E&M: 47253 Initial observation care L3
--- NOTE | 2021-03-18 23:03 | ED.VIS.DYS ---
HPI History of Present Illness Chief Complaint: Weakness Narrative Narrative: 61-year-old female presenting with generalized weakness. She states she has to use a Rollator at home to get around and almost fell today. She states she has a lift to help get her up. Patient does not have any chest pain but she does feel short of breath. She had a home pulse ox of 90% today at rest. Patient recently had a diagnosis of COVID-19 on 03/12/2021. Patient does not usually require oxygen. She states she had a fever today reported to her by EMS but has not had a fever at home. Patient is anticoagulated on Eliquis and states she has a history of CHF, respiratory failure, hyperlipidemia, immobility, diabetes. She feels that if she goes home she would be too weak to care for herself. [facility] Medical History Anxiety and depression Chronic back pain COPD (chronic obstructive pulmonary disease) Diabetes mellitus, type II Esophageal reflux Essential hypertension Exertional dyspnea Heart failure History of DVT (deep vein thrombosis) Hyperparathyroidism Immobility Lumbosacral neuritis Mixed hyperlipidemia Morbid obesity JEREMÍAS treated with BiPAP Peripheral neuropathy Pulmonary hypertension Sepsis SVT (supraventricular tachycardia) Vitamin D deficiency Home Medications duloxetine 60 mg PO DAILY 12/02/14 [History Last Taken 03/12/21 09:00] aripiprazole 10 mg PO QHS 10/21/17 [History Last Taken 03/11/21 21:00] pravastatin 20 mg tablet 20 mg PO QHS 04/09/19 [History Last Taken 03/11/21 21:00] famotidine 40 mg PO DAILY 11/08/19 [History Last Taken 03/12/21 09:00] insulin glargine 25 unit SQ BID 11/08/19 [History Last Taken 03/12/21 09:00] hydrocodone-acetaminophen 1 tab PO BID PRN 06/29/20 [History Last Taken 03/11/21 09:00] metformin 500 mg PO DAILY 06/29/20 [History Last Taken 03/12/21 09:00] potassium chloride 10 meq PO DAILY 06/29/20 [History Last Taken 03/12/21 09:00] acetaminophen 650 mg PO TID PRN 09/14/20 [History Last Taken 03/11/21] spironolactone 50 mg PO DAILY 09/14/20 [History Last Taken 03/12/21] trazodone 100 mg PO QHS MDD insomnia 09/14/20 [History Last Taken 03/11/21 21:00] lidocaine [Lidoderm] 1 patch TOPICAL DAILY #6 ea 01/19/21 [Rx Last Taken Unknown] apixaban [Eliquis] 5 mg PO BID #60 tab 03/14/21 [Rx Last Taken Unknown] dexamethasone 6 mg PO DAILYCM #7 tab 03/14/21 [Rx Last Taken Unknown] furosemide 80 mg PO BIDCM #0 tab 03/14/21 [Rx Last Taken 03/12/21 09:00] Allergy/AdvReac Type Severity Reaction Status Date / Time vancomycin Allergy Rash Verified 03/18/21 21:20 atorvastatin AdvReac Severe myalgias Verified 03/18/21 21:20 amlodipine AdvReac Unknown Verified 03/18/21 21:20 atenolol AdvReac Unknown Verified 03/18/21 21:20 bupropion HCl AdvReac Unknown Verified 03/18/21 21:20 [From Wellbutrin] fluoxetine HCl [From Prozac] AdvReac Unknown Verified 03/18/21 21:20 meloxicam [From Mobic] AdvReac Unknown Verified 03/18/21 21:20 metoprolol AdvReac Unknown Verified 03/18/21 21:20 pregabalin [From Lyrica] AdvReac Unknown Verified 03/18/21 21:20 quetiapine fumarate AdvReac Unknown Verified 03/18/21 21:20 [From Seroquel] quinapril HCl [From Accupril] AdvReac Unknown Verified 03/18/21 21:20 risperidone AdvReac Unknown Verified 03/18/21 21:20 rofecoxib [From Vioxx] AdvReac Unknown Verified 03/18/21 21:20 sitagliptin phosphate AdvReac Unknown Verified 03/18/21 21:20 [From Januvia] venlafaxine HCl AdvReac Unknown Verified 03/18/21 21:20 [From Effexor] Family History Mother Hypertension CVA (cerebral vascular accident) Diabetes Heart disease Father Hypertension COPD (chronic obstructive pulmonary disease) Sister Hypertension Sister Hypertension Diabetes Brother Hypertension Diabetes Brother Hypertension Diabetes Brother Hypertension CAD (coronary artery disease) History of coronary artery bypass surgery, Onset Age: 48 Diabetes Surgical History History of hernia repair History of laparoscopic cholecystectomy History of left heart catheterization (LHC) (~05/23/12) Social History household members: none Smoking Status: Former smoker alcohol intake: never substance use type: does not use ROS ROS ED Constitutional Constitutional ED: Reports fever(s); Denies chills Eyes Eyes: Denies blurry vision or diplopia ENT ENT ED: Denies rhinorrhea or sore throat Cardiovascular Cardiovascular: Reports palpitations; Denies chest pain Respiratory/Chest Respiratory/Chest: Reports cough, dyspnea and dyspnea on exertion Gastrointestinal Gastrointestinal: Denies abdominal pain, nausea or vomiting Genitourinary Genitourinary ED: Denies dysuria or hematuria Musculoskeletal Musculoskeletal: Reports myalgias; Denies arthralgias or neck pain Integumentary Denies rash Neurologic Neurologic: Denies headache(s) or paresthesias EXAM Physical Exam Const Vital Signs: 03/18/21 21:12 03/18/21 21:17 03/18/21 21:19 Temperature 99.8 F H 99.8 F H Temperature Source Oral Oral Pulse Rate 124 H 115 H Respiratory Rate 25 H 19 H Respiratory Pattern Normal Blood Pressure 135/85 H 136/85 H Blood Pressure Mean 101 102 Pulse Ox 96 96 Oxygen Delivery Method Nasal Cannula Nasal Cannula Oxygen Flow Rate (L/min) 2 2 03/18/21 21:21 Temperature Temperature Source Pulse Rate Respiratory Rate Respiratory Pattern Blood Pressure Blood Pressure Mean Pulse Ox 96 Oxygen Delivery Method Nasal Cannula Oxygen Flow Rate (L/min) 2 Positive obese General Appearance ED: NAD; Negative for pallor Nutritional Appearance: obese HEENT Reports dry mucous membranes atraumatic Mouth ED: Yes dry mucous membranes Mouth: dry mucous membranes Eyes PERRL and EOMs intact bilaterally Resp normal respiratory effort and clear to auscultation bilaterally Cardio regular rhythm Rate: tachycardic GI non-tender and non-distended Auscultation: normoactive bowel sounds Palpation: soft Neuro oriented x3, CN's II-XII intact bilaterally and no sensory deficits noted Sensorium / Orientation: alert Motor Exam: strength 5/5 throughout Psych mental status grossly normal Thought Process: normal thought process Skin General Skin Exam: Negative for jaundice or pallor Lesions: no lesions Rashes: no rashes MDM MDM MDM Narrative Medical decision making narrative: Patient presenting with generalized weakness and states he is unable to care for self. She also states he has been short of breath and had a low pulse ox reading at 90 at home. Unable to get the patient up to ambulate currently due to her weakness. She is 96% on 2 L nasal cannula. EKG on my interpretation shows a sinus tachycardia at a ventricular rate of 111 bpm without sign of ischemic change. Chest x-ray on my interpretation shows shows no acute process. The radiologist states that this may be atelectasis versus alveolar filling process. BMP shows normal renal function and electrolytes. High-sensitivity troponin is 21. Since patient is anticoagulated on Eliquis I have low suspicion for PE in conjunction with her COVID-19. I do not believe she is a D-dimer or a CTA. CBC is pending however given the patient's need to be hospitalized regardless of the result the patient was discussed with the hospitalist and admitted in stable condition. Impression: 1. Debility 2. Dyspnea 3. History of COVID-19 Lab Data Attestation: I reviewed the patient's lab results. Labs: Laboratory Results - last 24 hr 03/18/21 21:57 Sodium 136 Potassium 3.9 Chloride 96 L Carbon Dioxide 36.0 H Anion Gap 4 L BUN 22 H Creatinine 0.84 Estim Creat Clear Calc 195.30 Est GFR (MDRD) Af Amer 89 Est GFR (MDRD) Non-Af 73 BUN/Creatinine Ratio 26.3 H Glucose 216 H Calcium 10.5 H Troponin I High Sens 21 Radiography Diagnostic Testing: Clinical Impression(s) from Imaging Studies Chest X-Ray 03/18/21 22:00 IMPRESSION: 1. Subtle increased attenuation right lower lobe suspected represent atelectasis with alveolar filling process not completely excluded. Electronically Signed: Rene Carrillo DO at 22:16 EST , Discharge Plan Triage Chief Complaint: Weakness ED Provider: Erik Leong Dx/Rx/DC Orders Primary Care Provider: Vincent Negro
[2021-03-18 23:18] VITALS: BP 147/77; PULSE 102; PULSE 107; RESP 20; RESP 24; TEMP 36.7; O2SAT 93
[2021-03-18 23:34] LABS: Differential Indicated SCAN CRITERIA MET
[2021-03-18 23:34] LABS: Procalcitonin 0.04 ng/mL (0.00-0.09)
[2021-03-18 23:41] LABS: Differential Comment SCANNED
[2021-03-18 23:52] VITALS: BMI 78.1
[2021-03-18 23:57] VITALS: BP 130/71; PULSE 109; RESP 18; TEMP 37.3; O2SAT 93
[2021-03-19] MEDS: HYDROcodone Bitartrate/Apap 5/325 Tablet PO ×2 (03:30→16:50)
[2021-03-19] MEDS: Insulin Lispro 100 UNIT/ML INSULN.PEN SC ×4 (06:39→21:20)
[2021-03-19] MEDS: Furosemide 80 MG Tablet PO ×2 (08:00→17:00)
[2021-03-19] MEDS: Lidocaine 5% Patch 1 PATCH TOPICAL (10:00)
[2021-03-19] MEDS: Famotidine 20 MG Tablet 40 MG PO (10:00)
[2021-03-19] MEDS: Potassium Chloride Oral Tablet 10 MEQ PO (10:00)
[2021-03-19] MEDS: Acetaminophen 325 MG Tablet 650 MG PO (10:15)
[2021-03-19] MEDS: dexAMETHasone 4 MG Tablet 6 MG PO (10:15)
[2021-03-19] MEDS: APIXABAN 5 MG TABLET PO ×2 (10:15→21:15)
[2021-03-19] MEDS: DULoxetine Hcl 60 MG Capsule PO (10:15)
[2021-03-19] MEDS: Spironolactone 50 MG Tablet PO (10:15)
[2021-03-19 19:12] LABS: ALB/GLOB Ratio 1.2 RATIO (0.9-2.4); AST(SGOT) 20 U/L (15-37); Alanine Aminotransfer ALT/SGPT 39 U/L (13-56); Albumin, Serum 3.4 g/dL (3.2-5.0); Alkaline Phosphatase 148 U/L (45-117); Anion Gap 4 (5-15); BUN 20 mg/dL (7-18); BUN/Creat Ratio 34.2 RATIO (10-20); Calcium,Total 10.5 mg/dL (8.5-10.1); Chloride 99 mmol/L (98-107); Creatinine, Serum 0.58 mg/dL (0.55-1.02); EST Glomerular Filtration Rate 111 mL/min (>60); Est Glom Filt Rate - Afr Amer 135 mL/min (>60); Estimated Creatinine Clearance 282.85 ml/min; Globulin 2.9 g/dL (2.2-4.2); Glucose 174 mg/dL (74-106); Potassium 3.4 mmol/L (3.5-5.1); Protein, Total 6.3 g/dL (6.4-8.2); Sodium Level 137 mmol/L (136-145)
[2021-03-19 19:24] LABS: Bedside Glucose 184 mg/dL (70-110)
[2021-03-19 19:24] LABS: Bedside Glucose 151 mg/dL (70-110)
[2021-03-19 19:25] LABS: Bedside Glucose 255 mg/dL (70-110)
[2021-03-19 19:25] LABS: Bedside Glucose 342 mg/dL (70-110)
[2021-03-19] MEDS: Pravastatin 20 MG Tablet PO (21:15)
[2021-03-19] MEDS: ARIPiprazole 10 MG Tablet PO (21:15)
[2021-03-19] MEDS: traZODone 100 MG Tablet PO (21:15)
[2021-03-19 21:40] LABS: Bedside Glucose 321 mg/dL (70-110)
[2021-03-19 23:11] LABS: Absolute Lymphocyte Count 0.54 X10^3/uL (0.83-4.51); Absolute Neutrophil Count 3.5 X10^3/uL (2.0-7.7); Eosinophil# 0.01 X10^3/uL; Eosinophils% 0.2 % (0-5); Hematocrit 42.5 % (37-47); Hemoglobin 14.4 g/dL (12.0-15.0); Lymphocyte # 0.54 X10^3/ul (0.83-4.51); Lymphocyte % 11.9 % (19-41); Mean Corp Hgb Conc 33.9 g/dL (32-36); Mean Corpuscular Hgb 29.4 pg (27.0-32.0); Mean Corpuscular Volume 86.7 fL (81-99); Mean Platelet Vol. 10.4 fl (6.2-12.0); Monocyte# 0.45 X10^3/uL; Monocyte% 9.9 % (0-10); NRBC Flagged by Analyzer 0 % (0-5); Neutrophil # 3.53 X10^3/uL (2.7-7.7); Neutrophil % 77.8 % (47-70); POSITIVE DIFFERENTIAL YES; Platelet Count 164 K/mm3 (150-450); RBC Distribution Width SD 40.8 fl (35.1-43.9); White Blood Count 4.5 K/mm3 (4.4-11.0)
[2021-03-19 23:38] VITALS: PULSE 72; RESP 12; RESP 20; O2SAT 97
[2021-03-20] VITALS (13 sets, daily range): BP systolic 117–138; BP diastolic 55–77; PULSE 67–109; RESP 12–22; TEMP 36.6–36.8; O2SAT 94–99
[2021-03-20 00:01] LABS: Troponin-I HS 30 pg/mL (3.0-54.0)
[2021-03-20] MEDS: HYDROcodone Bitartrate/Apap 5/325 Tablet PO ×3 (06:51→23:51)
[2021-03-20] MEDS: Insulin Lispro 100 UNIT/ML INSULN.PEN SC ×4 (06:53→20:31)
[2021-03-20] MEDS: Ipratropium/Albuterol Sulfate 3 ML AMPUL.NEB INHALATION ×3 (07:11→20:20)
[2021-03-20 07:15] LABS: Bedside Glucose 243 mg/dL (70-110)
--- NOTE | 2021-03-20 07:44 | CPS ---
started by nursing
[2021-03-20] MEDS: dexAMETHasone 4 MG Tablet 6 MG PO (10:03)
[2021-03-20] MEDS: Spironolactone 50 MG Tablet PO (10:05)
[2021-03-20] MEDS: APIXABAN 5 MG TABLET PO ×2 (10:05→20:32)
[2021-03-20] MEDS: DULoxetine Hcl 60 MG Capsule PO (10:05)
[2021-03-20] MEDS: Furosemide 80 MG Tablet PO ×2 (10:05→16:11)
[2021-03-20] MEDS: Famotidine 20 MG Tablet 40 MG PO (10:06)
[2021-03-20] MEDS: Potassium Chloride Oral Tablet 10 MEQ PO (10:06)
[2021-03-20] MEDS: Lidocaine 5% Patch 1 PATCH TOPICAL (10:08)
[2021-03-20 12:25] LABS: Bedside Glucose 254 mg/dL (70-110)
--- NOTE | 2021-03-20 13:52 | PCM.PN.HOSP ---
Subjective Subjective Patient was seen and examined today, she is continue to complain of weakness, she does not want to go to a jail facility for short-term rehab services however, I told her that physical therapy was here today and tomorrow and that we will have to make a decision whether she is able to go home. Patient lives alone, I feel she would need 24-hour care if she went home presently. Patient remains at 2 L on nasal cannula at this time, she is presently out of the window for remdesivir administration. Objective Data Objective Data Vital Signs: Vital Signs Temp Pulse Resp BP Pulse Ox 98.3 F 78 22 H 124/55 H 97 03/20/21 09:54 03/20/21 13:29 03/20/21 13:29 03/20/21 09:54 03/20/21 09:54 Oxygen Flow Rate (L/min) 2 Oxygen Delivery Method Nasal Cannula Weight: 173.3 kg Body Mass Index (BMI) 78.1 Intake & Output: Intake and Output for Last 24 Hours 03/18/21 03/19/21 03/20/21 23:59 23:59 23:59 Intake Total 1200 / 1200 Output Total 800 / 800 Balance 400 / 400 Lab / Micro Data Result Diagrams: 03/19/21 01:40 03/19/21 01:40 Labs: Laboratory Results - last 24 hr 03/18/21 01:40: Troponin I High Sens 30 03/19/21 01:40: WBC 4.5, RBC 4.90, Hgb 14.4, Hct 42.5, MCV 86.7, MCH 29.4, MCHC 33.9, RDW Std Deviation 40.8, RDW Coeff of Kaity 13.0, Plt Count 164, MPV 10.4, Immature Gran % (Auto) 0.200, Neut % (Auto) 77.8 H, Lymph % (Auto) 11.9 L, Parker % (Auto) 9.9, Eos % (Auto) 0.2, Baso % (Auto) 0.0, Absolute Neuts (auto) 3.5, Absolute Lymphs (auto) 0.54 L, Nucleated RBC % 0 03/19/21 01:40: Sodium 137, Potassium 3.4 L, Chloride 99, Carbon Dioxide 34.0 H, Anion Gap 4 L, BUN 20 H, Creatinine 0.58, Estim Creat Clear Calc 282.85, Est GFR (MDRD) Af Amer 135, Est GFR (MDRD) Non-Af 111, BUN/Creatinine Ratio 34.2 H, Glucose 174 H, Calcium 10.5 H, Total Bilirubin 0.50, AST 20, ALT 39, Alkaline Phosphatase 148 H, Total Protein 6.3 L, Albumin 3.4, Globulin 2.9, Albumin/Globulin Ratio 1.2 03/19/21 04:39: POC Glucose 184 H 03/19/21 06:37: POC Glucose 151 H 03/19/21 11:53: POC Glucose 255 H 03/19/21 16:59: POC Glucose 342 H 03/19/21 21:11: POC Glucose 321 H 03/20/21 06:48: POC Glucose 243 H 03/20/21 11:57: POC Glucose 254 H Physical Exam Const alert, oriented x3 and no apparent distress Constitutional Narrative: Patient appears older than her stated age Patient appears weak and frail General Appearance: cooperative, well kempt and well developed Orientation / Consciousness: awake, oriented to person, oriented to place and oriented to time Nutritional Appearance: morbidly obese HEENT normocephalic, head/scalp atraumatic and moist oral mucous membranes Head and Scalp: normocephalic Eyes PERRL, EOMs intact bilaterally and conjunctivae normal Neck nuchal rigidity, supple, no JVD, thyroid normal and no carotid bruits General: trachea midline Resp normal respiratory effort, no retractions, no use of accessory muscles and clear to auscultation bilaterally Auscultation: Negative for rales, rhonchi or wheezes Cardio regular rate, regular rhythm, S1 normal heart sound, S2 normal heart sound, no murmurs, no rub and no gallops GI normal to inspection, nondistended, normoactive bowel sounds, soft to palpation, non-tender and non-distended Extremity no clubbing, cyanosis or edema Skin no rashes or lesions noted and skin turgor normal General Skin Exam: no breakdown Neuro oriented x3, CN's II-XII intact bilaterally, no focal motor deficits and no sensory deficits noted Sensorium / Orientation: awake and alert Speech: speech normal Psych thought process normal and affect normal Assessment & Plan Assessment/Plan (1) COVID-19: PLAN: 1. Generalized debility secondary to COVID-19 infection with multiple medical problems including morbid obesity, essential hypertension, pulmonary hypertension, and COPD-continue PT and OT, patient will most likely need placement at least short-term in a jail facility, I will talk with her again tomorrow about this #2 COVID-19 infection without pneumonia-patient is currently on dexamethasone, she had received a partial treatment of remdesivir before she was discharged on 03/14/2021. #3 acute hypoxic respiratory failure-patient is currently on 2 L via nasal cannula, O2 sats will be monitored. #4 mild pulmonary hypertension-excessive fluid administration will be avoided #5 obstructive sleep apnea-patient uses BiPAP at night #6 morbid obesity-complicates care, medical course, recovery, and prognosis. #7 essential hypertension-patient will remain on her current medications Charges/Coding Visit Charges Inpatient E&M: 53533 Subs Hosp L2
--- NOTE | 2021-03-20 13:52 | PCS.PANDOC ---
PANDEMIC DOCUMENTATION INITIATED: Date: 10/04/2020 Time: 190
[2021-03-20] MEDS: guaiFENesin 10 ML UDC (200MG/10ML) 20 ML PO ×2 (15:44→20:54)
[2021-03-20 16:21] LABS: Bedside Glucose 382 mg/dL (70-110)
[2021-03-20] MEDS: Pravastatin 20 MG Tablet PO (20:32)
[2021-03-20] MEDS: traZODone 100 MG Tablet PO (20:32)
[2021-03-20] MEDS: ARIPiprazole 10 MG Tablet PO (20:32)
[2021-03-20 21:56] LABS: Bedside Glucose 373 mg/dL (70-110)
[2021-03-21] VITALS (8 sets, daily range): BP systolic 113–148; BP diastolic 59–97; PULSE 74–109; RESP 18–20; TEMP 36.6–37.6; O2SAT 88–98
[2021-03-21] MEDS: Insulin Lispro 100 UNIT/ML INSULN.PEN SC ×3 (05:14→18:06)
[2021-03-21] MEDS: guaiFENesin 10 ML UDC (200MG/10ML) 20 ML PO (05:14)
[2021-03-21 07:26] LABS: Bedside Glucose 284 mg/dL (70-110)
[2021-03-21] MEDS: Ipratropium/Albuterol Sulfate 3 ML AMPUL.NEB INHALATION ×2 (07:49→13:47)
[2021-03-21] MEDS: Lidocaine 5% Patch 1 PATCH TOPICAL (09:27)
[2021-03-21] MEDS: Famotidine 20 MG Tablet 40 MG PO (09:28)
[2021-03-21] MEDS: dexAMETHasone 4 MG Tablet 6 MG PO (09:28)
[2021-03-21] MEDS: DULoxetine Hcl 60 MG Capsule PO (09:28)
[2021-03-21] MEDS: HYDROcodone Bitartrate/Apap 5/325 Tablet PO ×2 (09:28→18:06)
[2021-03-21] MEDS: Spironolactone 50 MG Tablet PO (09:28)
[2021-03-21] MEDS: Potassium Chloride Oral Tablet 10 MEQ PO (09:28)
[2021-03-21] MEDS: APIXABAN 5 MG TABLET PO (09:29)
[2021-03-21] MEDS: Furosemide 80 MG Tablet PO (09:29)
[2021-03-21 11:36] LABS: Bedside Glucose 303 mg/dL (70-110)
--- NOTE | 2021-03-21 12:22 | CASEMGMT ---
Social Work Note REYES reviewed chart. Pt has Direction Home CM Ramya Grayson ( , ). REYES placed a call to Ramya and updated her on pt's admission to [facility]. Ramya requests discharge paperwork be faxed to her when pt discharges home. REYES informed Ramya that pt may discharge home today. Ramya states understanding. Janell Coates GUT [employer]OPPER, PHYSICS TUTOR
--- NOTE | 2021-03-21 14:55 | CASEMGMT ---
Pt qualifies for home O2. Fax sent to [employer]. Email to Kailyn to make aware of referral and that portable tank was taken from stock. TC to pt room. She is aware of O2 process. Discussed with her that she is requiring assistance with ambulation. She states yesterday she only needed the assistance of one person. Her sister lives in the same apartment complex and she states she will assist her with her care. She also states she has a lift chair at home. TC to [facility], spoke with Palak. She is aware that SN was added and that pt will dc today with new O2. Will fax referral once dc information entered.
--- NOTE | 2021-03-21 16:16 | CASEMGMT ---
Social Work Note SW updated that pt requested transportation home. SW spoke with RN. Pt to transport via cot. Pt also needs oxygen at discharge and tank has been delivered to [facility]. REYES placed a call to [facility] and spoke with Yokasta. Yokasta confirms that pt can transport home with own Oxygen tank. REYES updated RN. Transportation to be arranged. Janell Coates IRRIGATION PUMP INSTALLER, ASPNET DEVELOPER
--- NOTE | 2021-03-21 16:30 | CASEMGMT ---
Social Work Note SW is leaving for the day. REYES placed transportation form on secretary receptionist's desk with facesheet. REYES updated freight checker that once physician completes discharge, transportation will need to be arrange. Janell Coates CONTAINERS SALES REPRESENTATIVE, DESK CLERK
--- NOTE | 2021-03-21 16:31 | PCM.DC ---
Discharge Instructions Diet Discharge Diet: 1800 Calorie Control Diet Activity Discharge Activity: Return to Normal Activity Weight Bearing Status: Full weight bearing Follow Up Care Test Results: Test results from this visit will be discussed in further detail at your follow-up appointment, if applicable. Discharge Plan Admission Admit Date/Time: 03/19/21 10:30 Primary Reason for Your Visit: COVID-19 infection, acute debility Attending Provider: Mike Lr Primary Care Provider: Vincent Negro Instructions Additional Instructions / Restrictions: Use oxygen at 2 L/min via nasal cannula at rest and when ambulating until you are reevaluated by your primary care physician, quarantine until March 29, 2021 Discharge Orders/Prescriptions Prescriptions: Continued pravastatin 20 mg tablet 20 mg PO QHS RF: 0 duloxetine 60 MG capsule,delayed release(DR/EC) 60 mg PO DAILY RF: 0 aripiprazole 10 MG tablet 10 mg PO QHS RF: 0 famotidine 40 MG tablet 40 mg PO DAILY RF: 0 insulin glargine 100 UNIT/ML insulin pen 25 unit SQ BID RF: 0 metformin 500 mg Tablet 500 mg PO DAILY RF: 0 potassium chloride 10 mEq Capsule, Extended Release 10 meq PO DAILY RF: 0 hydrocodone-acetaminophen 5-325 mg Tablet 1 tab PO BID PRN (Reason: Pain) RF: 0 acetaminophen 650 mg tablet extended release 650 mg PO TID PRN (Reason: Pain) RF: 0 trazodone 100 mg tablet 100 mg PO QHS MDD insomnia RF: 0 spironolactone 50 mg tablet 50 mg PO DAILY RF: 0 lidocaine [Lidoderm] 5 % adhesive patch,medicated 1 patch topical DAILY Qty: 6 RF: 0 Eliquis 5 mg tablet 5 mg PO BID Qty: 60 RF: 0 furosemide 80 mg tablet 80 mg PO BIDCM Qty: 0 RF: 0 Referrals / Follow Up: Vincent Negro MD [Primary Care Provider] - See Referral Note (After March 29, 2021) Disposition Disposition (needs filled in before D/C Order can be placed): Home Health Service
--- NOTE | 2021-03-21 16:43 | PCM.DC.SUM ---
Providers Date of Admission: 03/19/21 Date of Discharge: 03/21/21 Primary Care Physician: Dr. Vincent Negro MD Reason For Visit: COVID, FTT ADULT, HYPOXIC ON ADM O2 Diagnosis Discharge Diagnosis (1) COVID-19: Status: Acute Code(s): U07.1 - COVID-19 Plan: 1. Generalized debility secondary to COVID-19 infection with multiple medical problems including morbid obesity, essential hypertension, pulmonary hypertension, and COPD #2 COVID-19 infection without pneumonia #3 acute hypoxic respiratory failure secondary to COPD with overlap of recent COVID-19 infection #4 mild pulmonary hypertension #5 obstructive sleep apnea #6 morbid obesity #7 essential hypertension #8 type 2 diabetes Medications at Discharge Home Medications duloxetine 60 mg PO DAILY 12/02/14 aripiprazole 10 mg PO QHS 10/21/17 pravastatin 20 mg tablet 20 mg PO QHS 04/09/19 famotidine 40 mg PO DAILY 11/08/19 insulin glargine 25 unit SQ BID 11/08/19 hydrocodone-acetaminophen 1 tab PO BID PRN 06/29/20 metformin 500 mg PO DAILY 06/29/20 potassium chloride 10 meq PO DAILY 06/29/20 acetaminophen 650 mg PO TID PRN 09/14/20 spironolactone 50 mg PO DAILY 09/14/20 trazodone 100 mg PO QHS MDD insomnia 09/14/20 lidocaine [Lidoderm] 1 patch TOPICAL DAILY #6 ea 01/19/21 Eliquis 5 mg PO BID #60 tab 03/14/21 furosemide 80 mg PO BIDCM #0 tab 03/14/21 Hospital Course Operations None Procedures None Summary of Care Provided Minutes Spent on Discharge: 32 Hospital Course: This 61-year-old white female was seen in the emergency room at [facility] with a chief complaint of severe weakness with accompanied shortness of breath. Patient recently been discharged from the hospital after being treated for COVID-19 pneumonia, she has multiple chronic medical problems including COPD, type 2 diabetes, morbid obesity, and severe osteoarthritis. Evaluation in the emergency room revealed the patient to require 2 L via nasal cannula oxygen to maintain her pulse ox above 90%, x-rays did not indicate bilateral pneumonia, patient was initially placed in observation status on [facility] 3, she was seen by PT and OT, she required supplemental oxygen, discussions were carried out with the patient concerning short-term long term placement but the patient refused. On 03/21/2021, patient was checked for home oxygen requirement, patient required 2 L/min via nasal cannula on ambulation and at rest to maintain her pulse ox. She was expected to use the oxygen inside her home and outside her home during ADLs. On 03/21/2021, patient was seen and examined: On examination she appeared older than her stated age, she does not appear to be in any distress. Vital signs as documented. Skin warm and dry and without overt rashes. Neck without JVD, thyroid appears normal, trachea is midline, neck is supple. Lungs clear, normal air movement was noted. Heart exam notable for regular rhythm, normal sounds and absence of murmurs, rubs or gallops. Abdomen unremarkable and without evidence of organomegaly, masses, or abdominal aortic enlargement, bowel sounds are present in all 4 quadrants, no abdominal tenderness was noted. Patient was morbidly obese. Extremities-no pitting edema was noted, no cyanosis was noted, no clubbing was noted. Neuro: Cranial nerves II through XII are grossly intact, no focal motor deficits were noted, sensation to light touch and pinprick is intact, motor exam 5/5 throughout. Psych: Patient is alert and oriented x3, she does not appear anxious or depressed, she does not appear agitated. Patient was discharged home in stable condition on 03/21/2021 with home health. Weight / BMI Weight Weight: 173.9 kg Body Mass Index (BMI) 78.1 ABG / Lab / Microbiology Data Result Diagrams: 03/19/21 01:40 03/19/21 01:40 Laboratory: Laboratory Results - last 24 hr 03/20/21 20:29: POC Glucose 373 H 03/21/21 05:13: POC Glucose 284 H 03/21/21 11:26: POC Glucose 303 H D/C Instructions Discharge Diet: 1800 Calorie Control Diet Weight Bearing Status: Full weight bearing Meaningful Use Info Meaningful Use Diagnoses (Choose all that apply): None applicable Discharge Plan Admission Admit Date/Time: 03/19/21 10:30 Primary Reason for Your Visit: COVID-19 infection, acute debility Attending Provider: Mike Lr Primary Care Provider: Vincent Negro Instructions Additional Instructions / Restrictions: Use oxygen at 2 L/min via nasal cannula at rest and when ambulating until you are reevaluated by your primary care physician, quarantine until March 29, 2021 Discharge Orders/Prescriptions Prescriptions: Continued pravastatin 20 mg tablet 20 mg PO QHS RF: 0 duloxetine 60 MG capsule,delayed release(DR/EC) 60 mg PO DAILY RF: 0 aripiprazole 10 MG tablet 10 mg PO QHS RF: 0 famotidine 40 MG tablet 40 mg PO DAILY RF: 0 insulin glargine 100 UNIT/ML insulin pen 25 unit SQ BID RF: 0 metformin 500 mg Tablet 500 mg PO DAILY RF: 0 potassium chloride 10 mEq Capsule, Extended Release 10 meq PO DAILY RF: 0 hydrocodone-acetaminophen 5-325 mg Tablet 1 tab PO BID PRN (Reason: Pain) RF: 0 acetaminophen 650 mg tablet extended release 650 mg PO TID PRN (Reason: Pain) RF: 0 trazodone 100 mg tablet 100 mg PO QHS MDD insomnia RF: 0 spironolactone 50 mg tablet 50 mg PO DAILY RF: 0 lidocaine [Lidoderm] 5 % adhesive patch,medicated 1 patch topical DAILY Qty: 6 RF: 0 Eliquis 5 mg tablet 5 mg PO BID Qty: 60 RF: 0 furosemide 80 mg tablet 80 mg PO BIDCM Qty: 0 RF: 0 Referrals / Follow Up: Vincent Negro MD [Primary Care Provider] - See Referral Note (After March 29, 2021) Disposition Disposition (needs filled in before D/C Order can be placed): Home Health Service Charges/Coding Visit Charges Inpatient E&M: 09713 Disch Hosp
--- NOTE | 2021-03-21 16:45 | CASEMGMT ---
Social Work Note SW faxed discharge paperwork to pt's JOSE Grayson at [facility]. Janell Coates SUMMER ASSOCIATE, LACEWORKER
[2021-03-21 18:15] LABS: Bedside Glucose > 500 mg/dL (70-110)
--- NOTE | 2021-03-21 22:00 | NURSING ---
2145: This nurse was in patient room and patient was not given any HS medications or insulin. Pt states she will takes HS medications and insulin when she gets home tonight. Pt was given Lantus pen to take home that has hospital pharmacy label in it. Pt was given and instructed on discharge instructions by previous day shift nurse. IV was taken out by previous dayshift nurse. Pt knows how to work O2 tank and states her O2 from [employer] is at home already. Sister waiting at patients home for patient to arrive per patient. Pt leaving on 2L of O2. 2200:Squad in room to take patient home.
[2021-03-21 22:11] LABS: Bedside Glucose 421 mg/dL (70-110)
--- NOTE | 2021-03-22 08:57 | CASEMGMT ---
Faxed dc instructions and dc summary to [facility] at this time.
== END 2021-03-21 22:00 | disposition home health service (06) | DRG 177 ==
LOC: ED 22:50 → MS3 23:02
PROVIDERS: Admitting Provider Family Medicine; Emergency Provider Student in an Organized Health Care Education/Training Program; PCP Family Medicine; Visit Provider Internal Medicine
DX: U07.1 COVID-19 (principal); J96.01 Acute respiratory failure with hypoxia; Z68.45 Body mass index [BMI] 70 or greater, adult; I50.32 Chronic diastolic (congestive) heart failure; I27.20 Pulmonary hypertension, unspecified; R62.7 Adult failure to thrive; I11.0 Hypertensive heart disease with heart failure; Z79.4 Long term (current) use of insulin; E11.42 Type 2 diabetes mellitus with diabetic polyneuropathy; E66.01 Morbid (severe) obesity due to excess calories; J44.9 Chronic obstructive pulmonary disease, unspecified; E78.2 Mixed hyperlipidemia; K21.9 Gastro-esophageal reflux disease without esophagitis; G47.33 Obstructive sleep apnea (adult) (pediatric); M19.90 Unspecified osteoarthritis, unspecified site; F41.9 Anxiety disorder, unspecified; F32.A Depression, unspecified; Z87.891 Personal history of nicotine dependence; Z79.01 Long term (current) use of anticoagulants; Z87.01 Personal history of pneumonia (recurrent)
CPT/HCPCS: 71045; 80048; 80053; 82962; 84145; 84484; 85025; 93005; 94003; 94640; 97110; 97162; 97166; 97530; 97535; 97802; 99285

== ENCOUNTER 2022-03-02 12:20 | Inpatient (IN) | payer MEDICARE, MEDICAID, SELFPAY ==
[2022-03-02] VITALS (13 sets, daily range): BP systolic 109–136; BP diastolic 55–82; PULSE 100–124; RESP 12–22; TEMP 36.3–38.8; O2SAT 93–96; BMI 79.6; BMI 78.7
--- NOTE | 2022-03-02 12:45 | EKG12_ITS ---
Test Reason : GENERAL Blood Pressure : / mmHG Vent. Rate : 119 BPM Atrial Rate : 119 BPM P-R Int : 132 ms QRS Dur : 074 ms QT Int : 302 ms P-R-T Axes : 044 005 069 degrees QTc Int : 424 ms Sinus tachycardia Otherwise normal ECG Confirmed by GEO SIMS, SINDI ([id number]), electronic news gathering editor GRANT SAGASTUME ([id number]) on 03/06/2022 12:26:12 PM Referred By: Confirmed By:SINDI GUARDADO MD
--- NOTE | 2022-03-02 13:00 | EDS_ITS ---
HPI History of Present Illness Chief Complaint: Cellulitis Informant: patient Narrative Narrative: Presents by EMS for evaluation concerning for worsening cellulitis lower back. She states today had a fever 102 orally status post ibuprofen. States headache and myalgias. She is increasing redness in the back. States that she is dealing with wounds on her posterior thighs. States a couple months ago had similar cellulitis however it went away without treatment she did not get evaluated then. She had been hospitalized in the past for this. She denies cough or any urinary symptoms no vomiting or diarrhea. She states and has paperwork from hospitalizations back in 2018x3 along with 2019x1. States she feels similar when she was sick enough with her cellulitis requiring admission. She is a diabetic. Prior similar symptoms: Yes PFSH PFSH Medical History Anxiety and depression Chronic back pain COPD (chronic obstructive pulmonary disease) COVID-19 Diabetes mellitus, type II Esophageal reflux Essential hypertension Exertional dyspnea Heart failure History of DVT (deep vein thrombosis) Hyperparathyroidism Immobility Lumbosacral neuritis Mixed hyperlipidemia Morbid obesity JEREMÍAS treated with BiPAP Peripheral neuropathy Pulmonary hypertension Sepsis SVT (supraventricular tachycardia) Vitamin D deficiency Home Medications duloxetine 60 mg capsule,delayed release 60 mg PO DAILY depression 12/02/14 [History Last Taken 03/02/22] aripiprazole 10 mg tablet 10 mg PO QHS Depression 10/21/17 [History Last Taken 03/01/22] pravastatin 20 mg tablet 20 mg PO QHS cholesterol 04/09/19 [History Last Taken 03/01/22] famotidine 40 mg tablet 40 mg PO DAILY stomach 11/08/19 [History Last Taken 03/02/22] insulin glargine 100 unit/mL (3 mL) subcutaneous pen 25 unit SQ DAILY blood sugar 11/08/19 [History Last Taken 03/02/22] hydrocodone-acetaminophen 5-325mg 5mg-325mg 1 tab PO BID PRN Pain 06/29/20 [History Last Taken 03/01/22] metformin 500 mg tablet 500 mg PO DAILY diabetes 06/29/20 [History Last Taken 03/01/22] potassium chloride 10 mEq capsule,extended release 10 meq PO DAILY supplement 06/29/20 [History Last Taken 03/02/22] acetaminophen 650 mg tablet,extended release 650 mg PO TID PRN Pain 09/14/20 [History Last Taken 03/02/22] spironolactone 50 mg tablet 50 mg PO DAILY fluid 09/14/20 [History Last Taken 03/02/22] trazodone 100 mg tablet 100 mg PO QHS SLEEP 09/14/20 [History Last Taken 03/01/22] cholecalciferol (vitamin D3) 125 mcg (5,000 unit) tablet (Vitamin D3) 125 mcg PO DAILY 03/02/22 [History Last Taken 03/02/22] dulaglutide 1.5 mg/0.5 mL subcutaneous pen injector (Trulicity) 1.5 mg subcut FR DM 03/02/22 [History Last Taken 02/24/22] furosemide 80 mg tablet 80 mg PO DAILY FLUID 03/02/22 [History Last Taken 03/02/22] gabapentin 300 mg capsule 300 mg PO QHS PAIN 03/02/22 [History Last Taken 03/01/22] ibuprofen 200 mg tablet 800 mg PO Q8H PRN Fever 03/02/22 [History Last Taken 03/02/22 07:45] methocarbamol 500 mg tablet 500 mg PO BID 03/02/22 [History Last Taken 03/01/22] Allergy/AdvReac Type Severity Reaction Status Date / Time vancomycin Allergy Rash Verified 03/02/22 12:28 atorvastatin AdvReac Severe myalgias Verified 03/02/22 12:28 amlodipine AdvReac Unknown Verified 03/02/22 12:28 atenolol AdvReac Unknown Verified 03/02/22 12:28 bupropion HCl AdvReac Unknown Verified 03/02/22 12:28 [From Wellbutrin] fluoxetine HCl [From Prozac] AdvReac Unknown Verified 03/02/22 12:28 meloxicam [From Mobic] AdvReac Unknown Verified 03/02/22 12:28 metoprolol AdvReac Unknown Verified 03/02/22 12:28 pregabalin [From Lyrica] AdvReac Unknown Verified 03/02/22 12:28 quetiapine fumarate AdvReac Unknown Verified 03/02/22 12:28 [From Seroquel] quinapril HCl [From Accupril] AdvReac Unknown Verified 03/02/22 12:28 risperidone AdvReac Unknown Verified 03/02/22 12:28 rofecoxib [From Vioxx] AdvReac Unknown Verified 03/02/22 12:28 sitagliptin phosphate AdvReac Unknown Verified 03/02/22 12:28 [From Januvia] venlafaxine HCl AdvReac Unknown Verified 03/02/22 12:28 [From Effexor] Family History Mother Hypertension CVA (cerebral vascular accident) Diabetes Heart disease Father Hypertension COPD (chronic obstructive pulmonary disease) Sister Hypertension Sister Hypertension Diabetes Brother Hypertension Diabetes Brother Hypertension Diabetes Brother Hypertension CAD (coronary artery disease) History of coronary artery bypass surgery, Onset Age: 48 Diabetes Surgical History History of hernia repair History of laparoscopic cholecystectomy History of left heart catheterization (LHC) (~05/23/12) Social History household members: none Smoking Status: Former smoker alcohol intake: never substance use type: does not use ROS ROS ED Constitutional Constitutional ED: Reports fever(s); Denies chills or sweats Eyes Eyes: Denies change in vision ENT ENT ED: Denies dysphagia or sore throat Cardiovascular Cardiovascular: Denies chest pain, leg edema, palpitations or racing heartbeat Respiratory/Chest Respiratory/Chest: Denies cough, dyspnea or dyspnea on exertion Gastrointestinal Gastrointestinal: Denies abdominal pain, diarrhea, nausea or vomiting Genitourinary Genitourinary ED: Denies dysuria, hematuria or urinary frequency Musculoskeletal Musculoskeletal: Reports myalgias; Denies back pain, extremity pain or neck pain Integumentary Reports rash; Denies wounds Neurologic Neurologic: Reports headache(s); Denies paresthesias or weakness EXAM Physical Exam Const Vital Signs: 03/02/22 12:22 03/02/22 12:25 03/02/22 12:45 Temperature 97.5 F L 97.5 F L Temperature Source Temporal Temporal Pulse Rate 124 H 122 H Respiratory Rate 16 20 H Blood Pressure 122/65 H 122/65 H Blood Pressure Mean 84 84 Pulse Ox 94 94 94 Oxygen Delivery Method Room Air Room Air Room Air Positive well nourished, well developed and obese Constitutional Narrative: Nontoxic General Appearance ED: well developed and NAD Nutritional Appearance: obese HEENT Reports moist mucous membranes normocephalic and atraumatic Eyes PERRL, EOMs intact bilaterally and conjunctivae normal General Eye ED: Yes normal appearance of both eyes Neck no lymphadenopathy and supple General: Negative for tenderness Chest Wall Chest: Negative for tenderness Resp normal respiratory effort and normal air movement Effort and Inspection: symmetric chest movement; Negative for respiratory distress Cardio regular rhythm and no murmurs Rate: tachycardic Peripheral Pulses: pulses 2+ throughout GI normal to inspection, nondistended, normoactive bowel sounds and non-tender Palpation: Negative for guarding or rebound tenderness present Back/Spine no CVA tenderness and no thoracic nor lumbar tenderness Extremity normal to inspection General Extremety ED: Negative for edema or tenderness General Extremity: Negative for edema Neuro oriented x3 and no sensory deficits noted Sensorium / Orientation: awake and alert Skin Skin Narrative: With assistance from nursing, evaluation of her lower lumbar upper gluteal there is erythema however would slime around there is no indurations. Posterior bilateral thighs increased erythema there was ecchymosis in the middle, there was small areas of ulcerations with no active drainage. No indurations. Areas also would slime. There is no perirectal involvement. Sepsis Attestation Sepsis Alert: Yes Sepsis Attestation: Agree w/Sepsis Date exam was performed: 03/02/22 Time exam was performed: 13:22 Possible Source of Sepsis: Skin/soft tissue Sepsis Note Date exam was performed: 03/02/22 Time exam was performed: 13:22 Sepsis Attestation: Sepsis re-evaluation was performed MDM MDM MDM Narrative Medical decision making narrative: Patient reported fever, reported increasing redness with headache and myalgias. Differential includes COVID and influenza. She has no cough or concern for pneumonia. She has no urine symptoms for any concerns of UTI. There is redness to her lower back, there is redness to the posterior thighs with small ulcerations, this will be areas of more concern than her lower back. Sepsis labs were ordered for further evaluation. She is afebrile in the ED however status post ibuprofen. She is tachycardic, fluids will be started. 1320: WBC returned at 22.2. Tachycardic with these findings 2 out of 4 SIRS reported fever status post NSAIDs. Concerns more for cellulitis with skin infection. Sepsis reevaluation blood pressure stable systolic 113. She is covered Zosyn antibiotics discussed vancomycin allergy she reported was told red man syndrome with flushing. There is no lip or tongue swelling. Therefore this will be ordered to be given at half the rate. Discussed this with nursing. 1335: Urine noting nitrites and leukocytes. She was declining any urinary symptoms. Culture is sent. She is covered with broad antibiotics currently. 1354: Lactic acid returned at 2.7 however nasal swabs also returned positive for flu A, COVID negative. Multifactorial causes for her fever. However she does have a leukocytosis 22. Will discuss with hospitalist service for admission. Spoke with Dr. Barron for admission. Tamiflu started in the ED. Patient is stable for the medical floor. Lab Data Attestation: I reviewed the patient's lab results. Labs: Laboratory Results - last 24 hr 03/02/22 03/02/22 03/02/22 13:00 13:00 13:00 WBC 22.2 H RBC 4.43 Hgb 13.2 Hct 39.1 MCV 88.3 MCH 29.8 MCHC 33.8 RDW Std Deviation 43.0 RDW Coeff of Kaity 13.2 Plt Count 216 MPV 10.5 Immature Gran % (Auto) 0.500 Neut % (Auto) 94.6 H Lymph % (Auto) 1.9 L Bath % (Auto) 2.8 Eos % (Auto) 0.1 Baso % (Auto) 0.1 Absolute Neuts (auto) 21.0 H Absolute Lymphs (auto) 0.42 L Nucleated RBC % 0 Differential Comment SCANNED PT 13.9 INR 1.1 APTT 26.8 Sodium 137 Potassium 3.8 Chloride 100 Carbon Dioxide 27.0 Anion Gap 10 BUN 20 H Creatinine 0.88 Estim Creat Clear Calc 187.31 Est GFR (MDRD) Af Amer 84 Est GFR (MDRD) Non-Af 70 BUN/Creatinine Ratio 22.9 H Glucose 231 H Lactic Acid Calcium 8.7 Total Bilirubin 0.80 AST 7 L ALT 16 Alkaline Phosphatase 102 Total Protein 6.4 Albumin 3.3 Globulin 3.1 Albumin/Globulin Ratio 1.1 Urine Color Urine Clarity Urine pH Ur Specific [place] Urine Protein Urine Glucose (UA) Urine Ketones Urine Occult Blood Urine Nitrite Urine Bilirubin Urine Urobilinogen Ur Leukocyte Esterase Urine RBC Urine WBC Ur Squamous Epith Cells Urine Bacteria Urine Mucus 03/02/22 03/02/22 13:00 13:10 WBC RBC Hgb Hct MCV MCH MCHC RDW Std Deviation RDW Coeff of Kaity Plt Count MPV Immature Gran % (Auto) Neut % (Auto) Lymph % (Auto) Bath % (Auto) Eos % (Auto) Baso % (Auto) Absolute Neuts (auto) Absolute Lymphs (auto) Nucleated RBC % Differential Comment PT INR APTT Sodium Potassium Chloride Carbon Dioxide Anion Gap BUN Creatinine Estim Creat Clear Calc Est GFR (MDRD) Af Amer Est GFR (MDRD) Non-Af BUN/Creatinine Ratio Glucose Lactic Acid 2.7 H* Calcium Total Bilirubin AST ALT Alkaline Phosphatase Total Protein Albumin Globulin Albumin/Globulin Ratio Urine Color Claudia Urine Clarity Sl. Cloudy Urine pH 7.0 Ur Specific [place] 1.010 Urine Protein 30 H Urine Glucose (UA) Normal Urine Ketones Negative Urine Occult Blood Negative Urine Nitrite Positive H Urine Bilirubin Negative Urine Urobilinogen Normal Ur Leukocyte Esterase 500 H Urine RBC 0 SEEN Urine WBC 5-10 SEEN Ur Squamous Epith Cells 0-5 SEEN Urine Bacteria 3+ Urine Mucus 0 SEEN Discharge Plan Triage Chief Complaint: Cellulitis ED Provider: Bart Prakash Dx/Rx/DC Orders Clinical Impression: Cellulitis of right leg, Diabetes mellitus, type II, Morbid obesity, Cellulitis of left leg, Sepsis, Influenza A Primary Care Provider: Vincent Negro Disposition Disposition: Acute Care Hospital [facility]
[2022-03-02 13:12] LABS: Absolute Lymphocyte Count 0.42 X10^3/uL (0.83-4.51); Basophil# 0.03 X10^3/uL; Basophil% 0.1 % (0-1); Eosinophil# 0.02 X10^3/uL; Eosinophils% 0.1 % (0-5); Hematocrit 39.1 % (37-47); Hemoglobin 13.2 g/dL (12.0-15.0); Lymphocyte # 0.42 X10^3/ul (0.83-4.51); Lymphocyte % 1.9 % (19-41); Mean Corp Hgb Conc 33.8 g/dL (32-36); Mean Corpuscular Hgb 29.8 pg (27.0-32.0); Mean Corpuscular Volume 88.3 fL (81-99); Mean Platelet Vol. 10.5 fl (6.2-12.0); Monocyte# 0.62 X10^3/uL; Monocyte% 2.8 % (0-10); NRBC Flagged by Analyzer 0 % (0-5); Neutrophil # 21.01 X10^3/uL (2.7-7.7); Neutrophil % 94.6 % (47-70); POSITIVE DIFFERENTIAL YES; Platelet Count 216 K/mm3 (150-450); RBC Distribution Width CV 13.2 % (11.6-14.6); Red Blood Count 4.43 M/mm3 (4.2-5.4); White Blood Count 22.2 K/mm3 (4.4-11.0)
[2022-03-02 13:15] LABS: Differential Indicated SCAN CRITERIA MET
[2022-03-02 13:17] LABS: Mucous, Urine 0 SEEN /hpf (<or=2+); Red Blood Cells-Urine 0 SEEN /hpf (0-5)
[2022-03-02 13:23] LABS: Color, Urine Amber (Yellow); Glucose, Dipstick Normal (Normal); Ketone-Dipstick Negative (Negative); Leukocyte Esterase-Dipstick 500 /ul (Negative); Nitrite-Dipstick Positive (Negative); Occult Blood-Urine Negative /ul (Negative); Protein-Dipstick 30 mg/dl (Negative); Urine Bilirubin Dipstick Negative (Negative); Urine Clarity Sl. Cloudy (Clear); Urine Urobilinogen Normal (Normal)
[2022-03-02] MEDS: 0.9% Normal Saline 1,000 ML 150 ML IV (13:23)
[2022-03-02 13:27] LABS: International Normalized Ratio 1.1; Partial Thromboplast Time 26.8 Seconds (24.1-36.2); Prothrombin Time (Protime)PT. 13.9 SECONDS (11.7-14.9)
[2022-03-02 13:28] LABS: Differential Comment SCANNED
[2022-03-02 13:31] LABS: ALB/GLOB Ratio 1.1 RATIO (0.9-2.4); AST(SGOT) 7 U/L (15-37); Alanine Aminotransfer ALT/SGPT 16 U/L (13-56); Albumin, Serum 3.3 g/dL (3.2-5.0); Alkaline Phosphatase 102 U/L (45-117); Anion Gap 10 (5-15); BUN 20 mg/dL (7-18); BUN/Creat Ratio 22.9 RATIO (10-20); Calcium,Total 8.7 mg/dL (8.5-10.1); Chloride 100 mmol/L (98-107); Creatinine, Serum 0.88 mg/dL (0.55-1.02); EST Glomerular Filtration Rate 70 mL/min (>60); Est Glom Filt Rate - Afr Amer 84 mL/min (>60); Estimated Creatinine Clearance 187.31 ml/min; Globulin 3.1 g/dL (2.2-4.2); Glucose 231 mg/dL (74-106); Potassium 3.8 mmol/L (3.5-5.1); Protein, Total 6.4 g/dL (6.4-8.2); Sodium Level 137 mmol/L (136-145)
[2022-03-02 13:36] LABS: Bacteria 3+ /hpf (None Seen); Squamous Epithelial Cells - UA 0-5 SEEN /hpf (5-10); White Blood Cells 5-10 SEEN /hpf (0-5)
[2022-03-02 13:43] LABS: Lactic Acid 2.7 mmol/L (0.4-1.9)
[2022-03-02] MEDS: Oseltamivir Phosphate 75 MG Capsule PO ×2 (14:18→23:00)
--- NOTE | 2022-03-02 15:07 | HP.PCM.HOS_ITS ---
HPI - General General Date of Admission: 03/02/22 Date of Service: 03/02/22 Chief Complaint: Fatigue, malaise, headache, fever, posterior lumbar back redness, BL posterior thigh stasis ulcers. HPI Narrative The patient is a 62 y/o F w/ PMHx: Morbid Obesity, Anxiety and Depression, Chronic back pain, GERD, COPD, Diabetes mellitus type II, Hx VTE, JEREMÍAS on BIPAP q HS, Reported Diastolic CHF who presents to the [facility] ED on 03/02/22 with history of ongoing issues with posterior thigh wounds with history of cellulitis approximately 2 months prior however she notes that it reportedly resolved without treatment however she has previously been hospitalized secondary to these types of infections with onset over the last several days progressively worsening lower back and posterior thigh erythema with onset of fever up to 102 on day of presentation with complaints concurrently of mild headache and myalgias prompting eventual ED evaluation. She notes the headache has been throbbing and aching, starting in the frontal region and also in the posterior region without light/sound sensitivity rated 6/10 in discomfort and started this AM as noted. She also reports nausea without emesis. She reports that she does sit in a chair but that her aid who presents helps assure this stays clean given her chronic issues with posterior erythema and stasis wounds. She does report that she is up and moving in her home. In the ED work-up included T97.5, heart rate 124, BP 122/65, respiratory rate 16, 94% on room air, CBC with WC 22.2, hemoglobin 13.2, platelet 216 with left shift and lymphopenia, coags unremarkable, CMP with glucose 231 otherwise not marked, lactic acid 2.7, urinalysis with positive nitrite, leukocyte Estrace 500, urine WC is 5-10 noted to be a decent sample with 3+ urine bacteria, urine culture pending per ED, blood culture x2 pending per ED, rapid COVID antigen and influenza with positive influenza A antigen. In the ED patient administered IVFs as well as IV zosyn and IV vancomcyin at 1/2 rate given history of red man syndrome. [facility] Medical History Anxiety and depression Chronic back pain COPD (chronic obstructive pulmonary disease) COVID-19 Diabetes mellitus, type II Esophageal reflux Essential hypertension Exertional dyspnea Heart failure History of DVT (deep vein thrombosis) Hyperparathyroidism Immobility Lumbosacral neuritis Mixed hyperlipidemia Morbid obesity JEREMÍAS treated with BiPAP Peripheral neuropathy Pulmonary hypertension Sepsis SVT (supraventricular tachycardia) Vitamin D deficiency Home Medications duloxetine 60 mg capsule,delayed release 60 mg PO DAILY depression 12/02/14 [History Last Taken 03/02/22] aripiprazole 10 mg tablet 10 mg PO QHS Depression 10/21/17 [History Last Taken 03/01/22] pravastatin 20 mg tablet 20 mg PO QHS cholesterol 04/09/19 [History Last Taken 03/01/22] famotidine 40 mg tablet 40 mg PO DAILY stomach 11/08/19 [History Last Taken 03/02/22] insulin glargine 100 unit/mL (3 mL) subcutaneous pen 25 unit SQ DAILY blood sug ar 11/08/19 [History Last Taken 03/02/22] hydrocodone-acetaminophen 5-325mg 5mg-325mg 1 tab PO BID PRN Pain 06/29/20 [History Last Taken 03/01/22] metformin 500 mg tablet 500 mg PO DAILY diabetes 06/29/20 [History Last Taken 03/01/22] potassium chloride 10 mEq capsule,extended release 10 meq PO DAILY supplement 06/29/20 [History Last Taken 03/02/22] acetaminophen 650 mg tablet,extended release 650 mg PO TID PRN Pain 09/14/20 [History Last Taken 03/02/22] spironolactone 50 mg tablet 50 mg PO DAILY fluid 09/14/20 [History Last Taken 03/02/22] trazodone 100 mg tablet 100 mg PO QHS SLEEP 09/14/20 [History Last Taken 03/01/22] cholecalciferol (vitamin D3) 125 mcg (5,000 unit) tablet (Vitamin D3) 125 mcg PO DAILY 03/02/22 [History Last Taken 03/02/22] dulaglutide 1.5 mg/0.5 mL subcutaneous pen injector (Trulicity) 1.5 mg subcut FR DM 03/02/22 [History Last Taken 02/24/22] furosemide 80 mg tablet 80 mg PO DAILY FLUID 03/02/22 [History Last Taken 03/02/22] gabapentin 300 mg capsule 300 mg PO QHS PAIN 03/02/22 [History Last Taken 03/01/22] ibuprofen 200 mg tablet 800 mg PO Q8H PRN Fever 03/02/22 [History Last Taken 03/02/22 07:45] methocarbamol 500 mg tablet 500 mg PO BID 03/02/22 [History Last Taken 03/01/22] Allergy/AdvReac Type Severity Reaction Status Date / Time vancomycin Allergy Rash Verified 03/02/22 12:28 atorvastatin AdvReac Severe myalgias Verified 03/02/22 12:28 amlodipine AdvReac Unknown Verified 03/02/22 12:28 atenolol AdvReac Unknown Verified 03/02/22 12:28 bupropion HCl AdvReac Unknown Verified 03/02/22 12:28 [From Wellbutrin] fluoxetine HCl [From Prozac] AdvReac Unknown Verified 03/02/22 12:28 meloxicam [From Mobic] AdvReac Unknown Verified 03/02/22 12:28 metoprolol AdvReac Unknown Verified 03/02/22 12:28 pregabalin [From Lyrica] AdvReac Unknown Verified 03/02/22 12:28 quetiapine fumarate AdvReac Unknown Verified 03/02/22 12:28 [From Seroquel] quinapril HCl [From Accupril] AdvReac Unknown Verified 03/02/22 12:28 risperidone AdvReac Unknown Verified 03/02/22 12:28 rofecoxib [From Vioxx] AdvReac Unknown Verified 03/02/22 12:28 sitagliptin phosphate AdvReac Unknown Verified 03/02/22 12:28 [From Januvia] venlafaxine HCl AdvReac Unknown Verified 03/02/22 12:28 [From Effexor] Family History Mother Hypertension CVA (cerebral vascular accident) Diabetes Heart disease Father Hypertension COPD (chronic obstructive pulmonary disease) Sister Hypertension Sister Hypertension Diabetes Brother Hypertension Diabetes Brother Hypertension Diabetes Brother Hypertension CAD (coronary artery disease) History of coronary artery bypass surgery, Onset Age: 48 Diabetes Surgical History History of hernia repair History of laparoscopic cholecystectomy History of left heart catheterization (LHC) (~05/23/12) Social History household members: none Smoking Status: Former smoker alcohol intake: never substance use type: does not use ROS ROS Narrative Admission Review of Systems: CONSTITUTIONAL: No weight loss, + fever, chills, weakness or fatigue. HEENT: + Headache, starting to have mild congestion/sore throat. Eyes: No visual loss, blurred vision, double vision or yellow sclerae. Ears, Nose, Throat: No hearing loss, sneezing. SKIN: No rash or itching, lesions, wounds. CARDIOVASCULAR: No chest pain, chest pressure or chest discomfort, palpitations, edema, orthopnea, syncopal events. RESPIRATORY: No marked current shortness of breath, cough or marked sputum, nor wheezing or hemoptysis. GASTROINTESTINAL:+ anorexia, nausea, No vomiting or diarrhea, abdominal pain, melena, BRBPR. GENITOURINARY: No dysuria, frequency, urgency or retention. NEUROLOGICAL: + Generalized weakness/debility, headache, No dizziness, syncope, paralysis, ataxia, numbness or tingling in the extremities, focal weakness, change in bowel or bladder control, seizure. MUSCULOSKELETAL: + muscle, back pain, joint pain or stiffness. HEMATOLOGIC: No anemia, bleeding or bruising. LYMPHATICS: No enlarged nodes. No history of splenectomy. PSYCHIATRIC: + history of depression or anxiety. ENDOCRINOLOGIC: No reports of sweating, cold or heat intolerance. No polyuria or polydipsia. ALLERGIES: No history of asthma, hives, eczema or rhinitis. Vital Signs Vital Signs Vital Signs: 03/02/22 12:22 03/02/22 12:25 03/02/22 12:45 Temperature 97.5 F L 97.5 F L Temperature Source Temporal Temporal Pulse Rate 124 H 122 H Respiratory Rate 16 20 H Blood Pressure 122/65 H 122/65 H Blood Pressure Mean 84 84 Pulse Ox 94 94 94 Oxygen Delivery Method Room Air Room Air Room Air Weight Weight: 394 lb 10.039 oz Body Mass Index (BMI) 79.6 Physical Exam Narrative Physical Examination: General: Awake, alert, oriented x 3 and cooperative, seated upright in the ED bed, fatigued, ill appearing. Skin: Normal color, normal turgor, no icterus, no cyanosis except for BL po sterior thigh and lower back erythema, blanching, warm to touch, small BL posterior thigh stasis wounds without marked discharge noted, intertrigo also present in folds. HEENT: AT/NC, EOMI, PERRLA, mildly dry MM, no carotid bruits or JVD noted; however, thickened neck makes examination difficult. Lungs: Diminished, greater bases, moderate effort, mildly increased respiratory rate, no rales, ronchi or wheezing. Heart: Mildly tachycardic with regular rhythm; no gallop, rub audible. Abdomen: Soft, morbidly obese, NTTP, no obvious distention but difficult to discern given habitus, distant bowel sounds, unable to discern HSM secondary to morbidly obese habitus.? Extremities: No cyanosis, no clubbing, bilateral lower extremity edema nonpitting, chronic. Neurological: Patient awake, alert, oriented as noted, cognitive function intact; pupils equally reactive to light and accommodation, cranial nerves II- XII grossly normal, moving all 4 extremities, no focal deficits, strength severely decreased secondary to underlying comorbidities and acute presentation. Psychiatric: Affect appears fatigued otherwise normal, no acute evidence of depressive or anxiety feelings. Results Lab / Micro Data Result Diagrams: 03/02/22 13:00 03/02/22 13:00 Labs: Laboratory Results - last 24 hr 03/02/22 13:00: WBC 22.2 H, RBC 4.43, Hgb 13.2, Hct 39.1, MCV 88.3, MCH 29.8, MCHC 33.8, RDW Std Deviation 43.0, RDW Coeff of Kaity 13.2, Plt Count 216, MPV 10.5, Immature Gran % (Auto) 0.500, Neut % (Auto) 94.6 H, Lymph % (Auto) 1.9 L, [place] % (Auto) 2.8, Eos % (Auto) 0.1, Baso % (Auto) 0.1, Absolute Neuts (auto) 21.0 H, Absolute Lymphs (auto) 0.42 L, Nucleated RBC % 0, Differential Comment SCANNED 03/02/22 13:00: PT 13.9, INR 1.1, APTT 26.8 03/02/22 13:00: Sodium 137, Potassium 3.8, Chloride 100, Carbon Dioxide 27.0, Anion Gap 10, BUN 20 H, Creatinine 0.88, Estim Creat Clear Calc 187.31, Est GFR (MDRD) Af Amer 84, Est GFR (MDRD) Non-Af 70, BUN/Creatinine Ratio 22.9 H, Glucose 231 H, Calcium 8.7, Total Bilirubin 0.80, AST 7 L, ALT 16, Alkaline Phosphatase 102, Total Protein 6.4, Albumin 3.3, Globulin 3.1, Albumin/Globulin Ratio 1.1 03/02/22 13:00: Lactic Acid 2.7 H* 03/02/22 13:10: Urine Color Claudia, Urine Clarity Sl. Cloudy, Urine pH 7.0, Ur Specific [place] 1.010, Urine Protein 30 H, Urine Glucose (UA) Normal, Urine Ketones Negative, Urine Occult Blood Negative, Urine Nitrite Positive H, Urine Bilirubin Negative, Urine Urobilinogen Normal, Ur Leukocyte Esterase 500 H, Urine RBC 0 SEEN, Urine WBC 5-10 SEEN, Ur Squamous Epith Cells 0-5 SEEN, Urine Bacteria 3+, Urine Mucus 0 SEEN Micro: Microbiology 03/02/22 13:10 Nasal Secretion SARS-CoV-2 & FLU Antigen (Rapid) - Final Influenzae A Assessment & Plan Assessment/Plan (1) Influenza A: (2) Cellulitis of left leg: (3) Cellulitis of right leg: PLAN: Plan The patient is a 62 y/o F w/ PMHx: Morbid Obesity, Anxiety and Depression, Chronic back pain, GERD, COPD, Diabetes mellitus type II, Hx VTE, JEREMÍAS on BIPAP q HS, Reported Diastolic CHF who presents to the [facility] ED on 03/02/22 with history of ongoing issues with posterior thigh wounds with history of cellulitis approximately 2 months prior however she notes that it reportedly resolved without treatment however she has previously been hospitalized secondary to these types of infections with onset over the last several days progressively worsening lower back and posterior thigh erythema with onset of fever up to 102 on day of presentation with complaints concurrently of mild headache and myalgias prompting eventual ED evaluation. #1. Acute Sepsis, multifactorial potentially with Lactic acidosis secondary to Posterior Lumbar Cellulitis and Posterior thigh cellulitis complicated by chronic stasis wounds, #2, #3 (source, 2 SIRS RR/HR, lactic acidosis): Will admit to [facility], maintain on IV vancomycin at 1/2 dose given red man syndrome with requested MRSA wound/Wound Cx although from evaluation no marked discharge evident at this time and IV zosyn w/ de-escalation as able, offloading, position changes frequently, wound RN consultation, dressings, plan repeat CBC in AM, monitor erythema outline with VS checks. #2. Possible Acute Urinary Tract Infection: UA upon ED evaluation remarkable however patient denies specific dysuria but has other symptoms likely related with her possible cellulitis and acute influenza A presentation, pending UCx, continue judicious IVFs, monitor I/Os, continue IV Zosyn and as noted #1 IV vancomycin at 1/2 rate given red man syndrome w/ transition as able pending sensitivities and speciation. Bld cx x 2 obtained in the ED. #3. General Malaise, Fever, General Debility secondary to Influenza A Viral Syndrome: Will initiate on tamiflu, maintain on oxygen with wean as tolerated, continue ATC budesonide given tachycardia, PRN albuterol, HOB, IS parameters w/ pending Bld cx x 2 from ED. Will need to closely monitor for secondary bacterial PNA given debilities; however, as noted on abx for possible cellulitis/UTI. #4. Lactic acidosis, likely multifactorial: Likely associated with #1, #2, #3, continue judicious hydration, trend per facility protocol. #5. Hypertension: Continue home regimen including Lasix, spironolactone, PRN hydralazine. #6. Hyperlipidemia: We will continue patient on statin. #7. Chronic diastolic CHF: 03/12/21 ECHO w/ normal LV size, LV systolic function normal, EF 55%, stage I diastolic dysfunction, PASP 36 mmHg. We will continue aspirin, statin, Lasix, spironolactone, not on beta-andrea nor LIANG inhibitor/ARB, defer to outpatient. Judiciously hydrate given history. #8. Anxiety and depression: We will continue patient home duloxetine, trazodone and aripiprazole home regimen. #9. Diabetes mellitus type II: Hold oral home regimen, continue home insulin regimen, ADA diet, accu checks w/ ISS. #10. Morbid Obesity: Weight loss and lifestyle changes encouraged, nutrition consulted given the extent her obesity has been leading to stasis wounds and frequent cellulitis bouts. #11. GERD: We will continue patient home famotidine regimen. #12. History of VTE: Patient with noted prior history, not chronically an ticoagulated per current list, will clarify. #13. Notable diffuse intertrigo: Patient with notable intertrigo in all folds visualized, will have scheduled nystatin regimen and strongly encourage con tinued weight loss and lifestyle changes as well as routine hygiene. #14. JEREMÍAS: BiPAP nightly. #15. DVT prophylaxis: SCDs, Lovenox. #16. CODE status: Patient HCPOA is Adela Khan and living will is currently in place. Discussed CODE status at length including difference between FULL code, DNR-CCA and DNR-CC status. Following discussions about the differences in these status, requested Full Code status. Advanced Care Planning Face to Face Time: 17 minutes. Admission Evaluation Time spent evaluating chart, patient history, patient evaluation, care planning and discussion with specialists: 75 minutes. Charges/Coding Visit Charges Inpatient E&M: 85044 Init Hosp L3 Procedures Hospitalists Procedures: 72874 Advncd Care Plan 30 Min
[2022-03-02] MEDS: Acetaminophen 500 MG Tablet 1000 MG PO (15:10)
[2022-03-02] MEDS: Budesonide Respules 0.5 MG/2 ML AMPUL.NEB. INHALATION (16:22)
--- NOTE | 2022-03-02 17:03 | PCM.RX.CS ---
Consult Pharmacy has been consulted to manage selected antiobiotic: Vancomycin Type of Consult: New start Prior Doses of Antibiotics Received/Current Regimen: Medications Vancomycin HCl 2,000 mg/ (Sodium Chloride) 540 mls @ 125 mls/hr IV X1 ONE Stop: 03/02/22 17:38 Last Admin: 03/02/22 14:52 Dose: 125 mls/hr Labs: Sodium 137 mmol/L (136-145) 03/02/22 13:00 Potassium 3.8 mmol/L (3.5-5.1) 03/02/22 13:00 Chloride 100 mmol/L (98-107) 03/02/22 13:00 Carbon Dioxide 27.0 mmol/L (21.0-32.0) 03/02/22 13:00 Anion Gap 10 (5-15) 03/02/22 13:00 BUN 20 mg/dL (7-18) H 03/02/22 13:00 Creatinine 0.88 mg/dL (0.55-1.02) 03/02/22 13:00 Est GFR (MDRD) Af Amer 84 mL/min (>60) 03/02/22 13:00 Est GFR (MDRD) Non-Af 70 mL/min (>60) 03/02/22 13:00 BUN/Creatinine Ratio 22.9 RATIO (10-20) H 03/02/22 13:00 Glucose 231 mg/dL (74-106) H 03/02/22 13:00 Microbiology: Microbiology 03/02/22 13:10 Nasal Secretion SARS-CoV-2 & FLU Antigen (Rapid) - Final Influenzae A Weight used for dosin kg Estimated Creatinine Clearance: 45 Goal Trough: 15-20 mcg/mL Pharmacy Plan for Drug Dosinmg given in ED, 1000mg q12h with trough prior to 4th dose per policy. Pharmacy Service will continue to monitor and adjust dosing as required. Follow-Up Labs: Trough Vancomycin - 03/04 @ 3517
[2022-03-02 17:04] LABS: Reflex Lactate? Y
[2022-03-02] MEDS: Nystatin Powder 15gm Bottle 1 APPLIC TOPICAL ×2 (17:26→23:01)
[2022-03-02] MEDS: Insulin Lispro 100 UNIT/ML INSULN.PEN SC ×2 (17:27→22:59)
[2022-03-02 17:45] LABS: M R Staph aureus DNA By PCR Negative (Negative); Probe Check PASS; Staph aureus DNA By PCR POSITIVE (Negative)
[2022-03-02 17:47] LABS: M R Staph aureus DNA By PCR Negative (Negative); Probe Check PASS; Specimen Processing Control PASS
[2022-03-02] MEDS: Acetaminophen 325 MG Tablet 650 MG PO (17:49)
--- NOTE | 2022-03-02 17:54 | NURSING ---
174 Dr Barron notifed of the elevated temp. or 102.8, hr of 122, and it triggers SIRS3, and pt is c/o of red man syndrome. Ordered to give tylenol and stop the vanc if pt can't tolerate it. 1754 pt states she is ok with taking the vancomycin at this time.
[2022-03-02 18:48] LABS: Lactic Acid 1.5 mmol/L (0.4-1.9)
[2022-03-02 19:51] LABS: Bedside Glucose 215 mg/dL (74-106)
[2022-03-02] MEDS: Enoxaparin 40 MG/0.4 ML Syringe SC (22:53)
[2022-03-02] MEDS: Gabapentin 300 MG Capsule PO (22:59)
[2022-03-02] MEDS: HYDROcodone Bitartrate/Apap 5/325 Tablet PO (23:00)
[2022-03-02] MEDS: traZODone 100 MG Tablet PO (23:01)
[2022-03-02] MEDS: Methocarbamol 500 MG Tablet PO (23:01)
[2022-03-02] MEDS: ARIPiprazole 10 MG Tablet PO (23:01)
[2022-03-02] MEDS: Pravastatin 20 MG Tablet PO (23:01)
[2022-03-03] VITALS (10 sets, daily range): BP systolic 102–124; BP diastolic 54–74; PULSE 65–109; RESP 12–20; TEMP 36.7–37.1; O2SAT 94–99
[2022-03-03 00:01] LABS: Bedside Glucose 200 mg/dL (74-106)
[2022-03-03] MEDS: Vancomycin IV 1,000 MG/200 ML BAG 100 MG IV ×2 (06:40→18:05)
[2022-03-03] MEDS: Nystatin Powder 15gm Bottle 1 APPLIC TOPICAL ×3 (06:41→22:13)
[2022-03-03] MEDS: Insulin Lispro 100 UNIT/ML INSULN.PEN SC ×4 (06:48→22:11)
[2022-03-03] MEDS: HYDROcodone Bitartrate/Apap 5/325 Tablet PO ×2 (06:59→22:14)
[2022-03-03 07:18] LABS: Absolute Lymphocyte Count 0.61 X10^3/uL (0.83-4.51); Absolute Neutrophil Count 10.6 X10^3/uL (2.0-7.7); Basophil# 0.02 X10^3/uL; Basophil% 0.2 % (0-1); Eosinophil# 0.04 X10^3/uL; Eosinophils% 0.3 % (0-5); Hematocrit 35.3 % (37-47); Hemoglobin 11.9 g/dL (12.0-15.0); Lymphocyte # 0.61 X10^3/ul (0.83-4.51); Lymphocyte % 5.2 % (19-41); Mean Corp Hgb Conc 33.7 g/dL (32-36); Mean Corpuscular Hgb 29.7 pg (27.0-32.0); Mean Platelet Vol. 10.5 fl (6.2-12.0); Monocyte# 0.47 X10^3/uL; NRBC Flagged by Analyzer 0 % (0-5); Platelet Count 184 K/mm3 (150-450); RBC Distribution Width CV 13.4 % (11.6-14.6); RBC Distribution Width SD 43.2 fl (35.1-43.9); Red Blood Count 4.01 M/mm3 (4.2-5.4); White Blood Count 11.8 K/mm3 (4.4-11.0)
--- NOTE | 2022-03-03 07:18 | WOUNDNOTE ---
wound photo: buttocks/posterior thighs
--- NOTE | 2022-03-03 07:19 | WOUNDNOTE ---
skin photo: upper buttocks/lower back
[2022-03-03 07:38] LABS: Hemoglobin A1c 7.3 % (3.8-5.6)
[2022-03-03 07:40] LABS: Bedside Glucose 162 mg/dL (74-106)
[2022-03-03 07:46] LABS: ALB/GLOB Ratio 0.8 RATIO (0.9-2.4); AST(SGOT) 11 U/L (15-37); Alanine Aminotransfer ALT/SGPT 14 U/L (13-56); Albumin, Serum 2.7 g/dL (3.2-5.0); Alkaline Phosphatase 87 U/L (45-117); Anion Gap 7 (5-15); BUN 12 mg/dL (7-18); BUN/Creat Ratio 22.4 RATIO (10-20); Calcium,Total 8.4 mg/dL (8.5-10.1); Chloride 104 mmol/L (98-107); Creatinine, Serum 0.54 mg/dL (0.55-1.02); EST Glomerular Filtration Rate 123 mL/min (>60); Est Glom Filt Rate - Afr Amer 149 mL/min (>60); Globulin 3.2 g/dL (2.2-4.2); Glucose 162 mg/dL (74-106); Potassium 3.4 mmol/L (3.5-5.1); Protein, Total 5.9 g/dL (6.4-8.2); Sodium Level 140 mmol/L (136-145)
[2022-03-03] MEDS: Budesonide Respules 0.5 MG/2 ML AMPUL.NEB. INHALATION ×2 (07:56→19:48)
--- NOTE | 2022-03-03 08:49 | PCM.PN.HOSP ---
Subjective Subjective Follow-up sepsis secondary to cellulitis Patient is a 62-year-old lady morbidly obese with BMI of 79 presented with redness to the back and hip a day prior to coming in. An assessment of sepsis secondary to cellulitis involving the trunk and posterior thigh made. Antibiotics initiated per protocol patient admitted to regular nursing floor Objective Data Objective Data Vital Signs: Vital Signs Temp Pulse Resp BP Pulse Ox O2 Del Method FiO2 98.8 F 94 16 102/55 L 95 CPAP 30 03/03/22 01:51 03/03/22 01:51 03/03/22 02:29 03/03/22 01:51 03/03/22 02:29 03/03/22 01:51 03/03/22 02:29 Oxygen Delivery Method CPAP Weight: 177.5 kg Body Mass Index (BMI) 78.7 Intake & Output: Intake and Output for Last 24 Hours 03/01/22 03/02/22 03/03/22 23:59 23:59 23:59 Intake Total 640 / 640 50 / 50 Output Total 1150 / 1150 Balance 640 / -60 -1100 / -1100 Lab / Micro Data Result Diagrams: 03/03/22 06:25 03/03/22 06:25 Labs: Laboratory Results - last 24 hr 03/02/22 13:00: WBC 22.2 H, RBC 4.43, Hgb 13.2, Hct 39.1, MCV 88.3, MCH 29.8, MCHC 33.8, RDW Std Deviation 43.0, RDW Coeff of Kaity 13.2, Plt Count 216, MPV 10.5, Immature Gran % (Auto) 0.500, Neut % (Auto) 94.6 H, Lymph % (Auto) 1.9 L, [place] % (Auto) 2.8, Eos % (Auto) 0.1, Baso % (Auto) 0.1, Absolute Neuts (auto) 21.0 H, Absolute Lymphs (auto) 0.42 L, Nucleated RBC % 0, Differential Comment SCANNED 03/02/22 13:00: PT 13.9, INR 1.1, APTT 26.8 03/02/22 13:00: Sodium 137, Potassium 3.8, Chloride 100, Carbon Dioxide 27.0, Anion Gap 10, BUN 20 H, Creatinine 0.88, Estim Creat Clear Calc 187.31, Est GFR (MDRD) Af Amer 84, Est GFR (MDRD) Non-Af 70, BUN/Creatinine Ratio 22.9 H, Glucose 231 H, Calcium 8.7, Total Bilirubin 0.80, AST 7 L, ALT 16, Alkaline Phosphatase 102, Total Protein 6.4, Albumin 3.3, Globulin 3.1, Albumin/Globulin Ratio 1.1 03/02/22 13:00: Lactic Acid 2.7 H* 03/02/22 13:10: Urine Color Claudia, Urine Clarity Sl. Cloudy, Urine pH 7.0, Ur Specific [place] 1.010, Urine Protein 30 H, Urine Glucose (UA) Normal, Urine Ketones Negative, Urine Occult Blood Negative, Urine Nitrite Positive H, Urine Bilirubin Negative, Urine Urobilinogen Normal, Ur Leukocyte Esterase 500 H, Urine RBC 0 SEEN, Urine WBC 5-10 SEEN, Ur Squamous Epith Cells 0-5 SEEN, Urine Bacteria 3+, Urine Mucus 0 SEEN 03/02/22 15:55: S.aureus Protein A PCR POSITIVE H, MRSA (PCR) Negative 03/02/22 16:15: MRSA (PCR) Negative 03/02/22 17:26: POC Glucose 215 H 03/02/22 18:08: Lactic Acid 1.5 03/02/22 22:57: POC Glucose 200 H 03/03/22 06:25: WBC 11.8 H, RBC 4.01 L, Hgb 11.9 L, Hct 35.3 L, MCV 88.0, MCH 29.7, MCHC 33.7, RDW Std Deviation 43.2, RDW Coeff of Kaity 13.4, Plt Count 184, MPV 10.5, Immature Gran % (Auto) 0.300, Neut % (Auto) 90.0 H, Lymph % (Auto) 5.2 L, [place] % (Auto) 4.0, Eos % (Auto) 0.3, Baso % (Auto) 0.2, Absolute Neuts (auto) 10.6 H, Absolute Lymphs (auto) 0.61 L, Nucleated RBC % 0 03/03/22 06:25: Sodium 140, Potassium 3.4 L, Chloride 104, Carbon Dioxide 29.0, Anion Gap 7, BUN 12, Creatinine 0.54 L, Estim Creat Clear Calc 302.68, Est GFR (MDRD) Af Amer 149, Est GFR (MDRD) Non-Af 123, BUN/Creatinine Ratio 22.4 H, Glucose 162 H, Calcium 8.4 L, Total Bilirubin 0.70, AST 11 L, ALT 14, Alkaline Phosphatase 87, Total Protein 5.9 L, Albumin 2.7 L, Globulin 3.2, Albumin/Globulin Ratio 0.8 L 03/03/22 06:25: Hemoglobin A1c 7.3 H 03/03/22 06:46: POC Glucose 162 H Micro: Microbiology 03/02/22 13:00 Blood Culture (Wb) - Left Forearm Bacteria Detection (PCR) - Preliminary Streptococcus agalactiae (B) 03/02/22 13:00 Blood Culture (Wb) - Left Forearm Blood Culture - Preliminary 03/02/22 13:00 Blood Culture (Wb) - Anticubital Right Blood Culture - Preliminary 03/02/22 13:10 Nasal Secretion SARS-CoV-2 & FLU Antigen (Rapid) - Final Influenzae A Physical Exam Narrative GENERAL: cooperative HEENT: Atraumatic; normocephalic EYES; Anicteric, Normal Conjunctiva NECK; supple, normal thyroid, RESPIRATORY: Diminished to auscultation CARDIOVASCULAR: Regular S1 S2, GI: soft, normoactive bowel sounds, : No Renal angle tenderness; EXTREMITIES: No edema, no clubbing, MUSCULOSKELETAL: no muscle wasting NEURO: Awake; no lateralizing signs. SKIN: Area of erythema and warmth involving the right flank as well as perirectal region PSYCH; Flat affect Assessment & Plan Assessment/Plan (1) Influenza A: (2) Cellulitis of left leg: (3) Cellulitis of right leg: PLAN: Plan Patient is a 62-year-old lady morbidly obese with BMI of 79 presented with redness to the back and hip a day prior to coming in. An assessment of sepsis secondary to cellulitis involving the trunk and posterior thigh made. Antibiotics initiated per protocol patient admitted to regular nursing floor 1. Sepsis secondary to cellulitis involving the trunk and thighs with streptococcal species - Blood cultures so far positive for strep. Patient is MR duff screen came back positive. Patient started on piperacillin/tazobactam as well as vancomycin we will follow-up on sensitivities from her cultures 2.Acute cystitis ? Patient on gentle broad-spectrum antibiotic therapy as stated above we will follow-up on culture result 3. Hypokalemia ? Potassium 3.4 additional replacement given repeat BMP ordered for a.m. 4. Class III obesity with BMI of 79 ? Complicating care weight loss advised 5. Obstructive sleep apnea ? Patient is on BiPAP at night, encouraged consistent use 6. Diabetes mellitus type II -patient's oral hypoglycemics held. Placed on long acting insulin?Lantus, Accu-Cheks a.c. and at bedtime and covered with sliding scale insulin 7. Dyslipidemia ? Patient is on pravastatin this was substituted with atorvastatin in the hospital 8. Chronic congestive heart failure with preserved ejection fraction ? Echo obtained on 03/12/2021 demonstrated EF of 55% as well as stage I diastolic dysfunction. Patient is on furosemide and Aldactone continued 9. DVT prophylaxis ? SC Lovenox Time spent in the patient's overall evaluation,decision-making process, review of diagnostic data, adjustment of management, discussion with other providers, nursing nursing and ancillary staff involved in patient's care documentation, 58 Minutes Charges/Coding Visit Charges Inpatient E&M: 71153 Init Hosp L3
[2022-03-03] MEDS: Acetaminophen 325 MG Tablet 650 MG PO ×2 (09:26→15:20)
[2022-03-03] MEDS: 0.9% Saline Lock 10 ML Syringe IV ×2 (09:28→18:05)
[2022-03-03] MEDS: Menthol/Lanolin/Calamine/Znox 113 GM Tube 1 APPLIC TOPICAL ×2 (10:10→22:11)
[2022-03-03] MEDS: 0.9% Normal Saline 1,000 ML 100 ML IV ×2 (10:10→22:10)
[2022-03-03] MEDS: DULoxetine Hcl 60 MG Capsule PO (10:24)
[2022-03-03] MEDS: Spironolactone 50 MG Tablet PO (10:24)
[2022-03-03] MEDS: Potassium Chloride Oral Tablet 10 MEQ PO (10:24)
[2022-03-03] MEDS: Methocarbamol 500 MG Tablet PO ×2 (10:24→22:13)
[2022-03-03] MEDS: Famotidine 20 MG Tablet 40 MG PO (10:24)
[2022-03-03] MEDS: Furosemide 80 MG Tablet PO (10:24)
[2022-03-03] MEDS: Oseltamivir Phosphate 75 MG Capsule PO ×2 (10:24→22:13)
[2022-03-03] MEDS: Enoxaparin 40 MG/0.4 ML Syringe SC ×2 (10:25→22:12)
[2022-03-03] MEDS: Insulin Glargine-YFGN 100 UNIT/ML Pen 25 UNIT SC (10:25)
[2022-03-03] MEDS: Glucerna Shake 120 ML LIQUID PO (10:28)
[2022-03-03 12:40] LABS: Bedside Glucose 196 mg/dL (74-106)
--- NOTE | 2022-03-03 13:00 | CASEMGMT ---
LOLY GARCIA Discharge Planning Assessment: Face to face with pt for initial transition planning/care coordination assessment. Pt alert and oriented x4, lying in bed. LOLY GARCIA introduced self and role at [facility]. Pt voiced understanding. Care Providers, pharmacy, and demographics verified. Admitted Dx: Inf. A, cellulitis of bilat posterior thigh wounds, UTI, sepsis PCP: Dr. Negro Specialists: Shameka (pul), had been to [facility] 6 months ago Preferred Pharmacy: [facility] Insurance: [employer], [employer] w/prescription benefit Living Will/HPOA: yes/yes HPOA sister Adela first and Dario second LNOK: sisters Adela, Dario, Olimpia Living arrangements: Pt lives alone in a single story apartment without steps to enter. Pt receives assistance with bathing and dressing from her COLLECTION ADMINISTRATOR 5days/week for 3hours/day, her sister Olimpia helps her when the COLLECTION ADMINISTRATOR is not present. Pt is able to undress herself in the evening. Pt ambulates short distances using a rollator. COLLECTION ADMINISTRATOR also performs household tasks, laundry and prepares meals. Pt had received [employer] in the past but had cancelled them. Her food stamps will end at the end of March so she is interested in resuming these at that time. Pt has been sleeping in her lift chair as she is unable to get in and out of her hospital bed (w/trapeze). Pt uses [employer] delivery for groceries and COLLECTION ADMINISTRATOR or family supervisor opening and picking items otherwise as needed. Transportation: Pt uses w/c van transportation arranged through [facility] DME: shower chair, raised toilet seat, grab bars, hand held shower, lift chair, hospital bed w/trapeze, rollator, w/c, medical alert, Bipap from [employer]. If she does not wear her bipap she wears O2 at 3l/min at only from [facility]. SNF: pt states she spent one night at [facility] H[facility]: [facility] previously, currently has [facility] with COLLECTION ADMINISTRATOR from [place], Ramya Grayson is her DH CM. Plan: Pt would like to return home to her apartment with the continuation of her HH services and assistance from family. Pt would like to attend outpt PT at [facility]. Pt states she would prefer this to home therapy as they would be able to provide therapy services greater than home health could provide. Pt is not interested in staying at a SNF for therapy. Discussed wound care needs and pt states both of her sisters are able and willing to assist her with wound care. Explained to pt that we would follow and after her therapy evaluations and when wound care needs are identified, we will discuss appropriate discharge plan. Pt agreeable to this plan. Will continue to follow and assist with DC planning needs as identified. Carolyne Cast RN CM
[2022-03-03] MEDS: Juven (unflavored) Packet 1 PACKET PO (16:13)
[2022-03-03 16:35] LABS: Bedside Glucose 219 mg/dL (74-106)
[2022-03-03] MEDS: traZODone 100 MG Tablet PO (22:11)
[2022-03-03] MEDS: ARIPiprazole 10 MG Tablet PO (22:11)
[2022-03-03] MEDS: Gabapentin 300 MG Capsule PO (22:13)
[2022-03-03] MEDS: Pravastatin 20 MG Tablet PO (22:13)
[2022-03-03 23:06] LABS: Bedside Glucose 221 mg/dL (74-106)
[2022-03-04] MEDS: Acetaminophen 325 MG Tablet 650 MG PO (02:47)
[2022-03-04 03:00] VITALS: BP 119/67; PULSE 81; RESP 18; TEMP 36; O2SAT 99
[2022-03-04] MEDS: Nystatin Powder 15gm Bottle 1 APPLIC TOPICAL ×2 (05:17→10:43)
[2022-03-04] MEDS: Vancomycin IV 1,000 MG/200 ML BAG 100 MG IV (05:19)
[2022-03-04] MEDS: Insulin Lispro 100 UNIT/ML INSULN.PEN SC ×2 (06:25→10:41)
[2022-03-04 06:45] LABS: Bedside Glucose 187 mg/dL (74-106)
[2022-03-04 07:19] LABS: Absolute Lymphocyte Count 0.89 X10^3/uL (0.83-4.51); Absolute Neutrophil Count 3.2 X10^3/uL (2.0-7.7); Basophil# 0.01 X10^3/uL; Basophil% 0.2 % (0-1); Eosinophil# 0.19 X10^3/uL; Hematocrit 35.8 % (37-47); Hemoglobin 11.6 g/dL (12.0-15.0); Lymphocyte # 0.89 X10^3/ul (0.83-4.51); Lymphocyte % 18.9 % (19-41); Mean Corp Hgb Conc 32.4 g/dL (32-36); Mean Corpuscular Volume 89.5 fL (81-99); Mean Platelet Vol. 10.3 fl (6.2-12.0); Monocyte# 0.39 X10^3/uL; Monocyte% 8.3 % (0-10); NRBC Flagged by Analyzer 0 % (0-5); Neutrophil # 3.23 X10^3/uL (2.7-7.7); Neutrophil % 68.4 % (47-70); Platelet Count 190 K/mm3 (150-450); RBC Distribution Width CV 13.2 % (11.6-14.6); RBC Distribution Width SD 43.9 fl (35.1-43.9); White Blood Count 4.7 K/mm3 (4.4-11.0)
[2022-03-04] MEDS: Budesonide Respules 0.5 MG/2 ML AMPUL.NEB. INHALATION (07:45)
[2022-03-04 07:46] VITALS: PULSE 80; RESP 20; O2SAT 98
[2022-03-04] MEDS: Potassium Chloride Oral Tablet 10 MEQ PO (08:09)
[2022-03-04] MEDS: Famotidine 20 MG Tablet 40 MG PO (08:09)
[2022-03-04] MEDS: Glucerna Shake 120 ML LIQUID PO ×2 (08:09→10:48)
[2022-03-04] MEDS: Furosemide 80 MG Tablet PO (08:09)
[2022-03-04 08:11] VITALS: BP 130/74; PULSE 71; RESP 18; TEMP 36.8; O2SAT 94
[2022-03-04 08:40] LABS: Anion Gap 7 (5-15); BUN 14 mg/dL (7-18); Calcium,Total 8.2 mg/dL (8.5-10.1); Chloride 104 mmol/L (98-107); Creatinine, Serum 0.56 mg/dL (0.55-1.02); EST Glomerular Filtration Rate 117 mL/min (>60); Est Glom Filt Rate - Afr Amer 141 mL/min (>60); Estimated Creatinine Clearance 295.98 ml/min; Glucose 199 mg/dL (74-106); Magnesium 2.2 mg/dL (1.6-2.6); Phosphorus 2.5 mg/dL (2.5-4.9); Potassium 3.9 mmol/L (3.5-5.1); Sodium Level 140 mmol/L (136-145)
--- NOTE | 2022-03-04 08:41 | PN.HOSP_ITS ---
Subjective Subjective sepsis ? Patient seen admit to significant improvement in overall condition. Patient is requesting discharge. Wound cultures came back positive for MSSA urine cultures came back positive for E. coli and patient did grow group C strep in the blood. Patient be assessed for possible discharge Objective Data Objective Data Vital Signs: Vital Signs Temp Pulse Resp BP Pulse Ox O2 Del Method O2 Flow Rate 98.3 F 71 18 130/74 H 94 Room Air 2 03/04/22 08:11 03/04/22 08:11 03/04/22 08:11 03/04/22 08:11 03/04/22 08:11 03/04/22 08:11 03/04/22 03:00 FiO2 30 03/03/22 22:55 Oxygen Flow Rate (L/min) 2 Oxygen Delivery Method Room Air Weight: 180 kg Body Mass Index (BMI) 78.7 Intake & Output: Intake and Output for Last 24 Hours 03/02/22 03/03/22 03/04/22 23:59 23:59 23:59 Intake Total 640 / 640 3380.38 / 3380.38 550 / 550 Output Total 2800 / 2800 950 / 950 Balance 640 / -60 580.38 / 580.38 -400 / -400 Lab / Micro Data Result Diagrams: 03/04/22 06:54 03/04/22 06:54 Labs: Laboratory Results - last 24 hr 03/03/22 12:16: POC Glucose 196 H 03/03/22 16:12: POC Glucose 219 H 03/03/22 21:53: POC Glucose 221 H 03/04/22 06:21: POC Glucose 187 H 03/04/22 06:54: WBC 4.7, RBC 4.00 L, Hgb 11.6 L, Hct 35.8 L, MCV 89.5, MCH 29.0, MCHC 32.4, RDW Std Deviation 43.9, RDW Coeff of Kaity 13.2, Plt Count 190, MPV 10.3, Immature Gran % (Auto) 0.200, Neut % (Auto) 68.4, Lymph % (Auto) 18.9 L, [place] % (Auto) 8.3, Eos % (Auto) 4.0, Baso % (Auto) 0.2, Absolute Neuts (auto) 3.2, Absolute Lymphs (auto) 0.89, Nucleated RBC % 0 03/04/22 06:54: Sodium 140, Potassium 3.9, Chloride 104, Carbon Dioxide 29.0, Anion Gap 7, BUN 14, Creatinine 0.56, Estim Creat Clear Calc 295.98, Est GFR (MDRD) Af Amer 141, Est GFR (MDRD) Non-Af 117, BUN/Creatinine Ratio 25.0 H, Glucose 199 H, Calcium 8.2 L, Phosphorus 2.5, Magnesium 2.2 Micro: Microbiology 03/02/22 15:55 Wound - Leg, Right Gram Stain - Final 03/02/22 15:55 Wound - Leg, Right Wound Culture - Preliminary Staphylococcus aureus 03/02/22 13:10 Urine Catheter - Bailey Urine Culture - Final Escherichia coli 03/02/22 13:00 Blood Culture (Wb) - Anticubital Right Blood Culture - Final Streptococcus group B 03/02/22 13:00 Blood Culture (Wb) - Left Forearm Bacteria Detection (PCR) - Final Streptococcus agalactiae (B) 03/02/22 13:00 Blood Culture (Wb) - Left Forearm Blood Culture - Preliminary Streptococcus agalactiae (B) 03/02/22 13:10 Nasal Secretion SARS-CoV-2 & FLU Antigen (Rapid) - Final Influenzae A Physical Exam Narrative GENERAL: cooperative HEENT: Atraumatic; normocephalic EYES; Anicteric, Normal Conjunctiva NECK; supple, normal thyroid, RESPIRATORY: Diminished to auscultation CARDIOVASCULAR: Regular S1 S2, GI: soft, normoactive bowel sounds, : No Renal angle tenderness; EXTREMITIES: No edema, no clubbing, MUSCULOSKELETAL: no muscle wasting NEURO: Awake; no lateralizing signs. SKIN: Area of erythema and warmth involving the right flank as well as perirectal region PSYCH; Flat affect Assessment & Plan Assessment/Plan (1) Influenza A: (2) Cellulitis of left leg: (3) Cellulitis of right leg: PLAN: Plan Patient is a 62-year-old lady morbidly obese with BMI of 79 presented with redness to the back and hip a day prior to coming in. An assessment of sepsis secondary to cellulitis involving the trunk and posterior thigh made. Antibiotics initiated per protocol patient admitted to regular nursing floor 1. Sepsis secondary to cellulitis involving the trunk and thighs with streptococcal species - Blood cultures so far positive for strep. Patient is MR rising screen came back positive. Patient started on piperacillin/tazobactam as well as vancomycin we will follow-up on sensitivities from her cultures -? Patient seen admit to significant improvement in overall condition. Patient is requesting discharge. Wound cultures came back positive for MSSA urine cultures came back positive for E. coli and patient did grow group C strep in the blood. Patient be assessed for possible discharge 2.Acute cystitis ? Patient on gentle broad-spectrum antibiotic therapy as stated above we will follow-up on culture result 3. Hypokalemia ? Potassium 3.4 additional replacement given repeat BMP ordered for a.m. 4. Class III obesity with BMI of 79 ? Complicating care weight loss advised 5. Obstructive sleep apnea ? Patient is on BiPAP at night, encouraged consistent use 6. Diabetes mellitus type II -patient's oral hypoglycemics held. Placed on long acting insulin?Lantus, Accu- Cheks a.c. and at bedtime and covered with sliding scale insulin 7. Dyslipidemia ? Patient is on pravastatin this was substituted with atorvastatin in the hospital 8. Chronic congestive heart failure with preserved ejection fraction ? Echo obtained on 03/12/2021 demonstrated EF of 55% as well as stage I diastolic dysfunction. Patient is on furosemide and Aldactone continued 9. DVT prophylaxis ? VT Lovenox Time spent in the patient's overall evaluation,decision-making process, review of diagnostic data, adjustment of management, discussion with other providers, nursing nursing and ancillary staff involved in patient's care documentation, 38 Minutes Charges/Coding Visit Charges Inpatient E&M: 11149 Subs Hosp L2
[2022-03-04] MEDS: Methocarbamol 500 MG Tablet PO (10:37)
[2022-03-04] MEDS: Enoxaparin 40 MG/0.4 ML Syringe SC (10:37)
[2022-03-04] MEDS: Oseltamivir Phosphate 75 MG Capsule PO (10:38)
[2022-03-04] MEDS: DULoxetine Hcl 60 MG Capsule PO (10:38)
[2022-03-04] MEDS: Insulin Glargine-YFGN 100 UNIT/ML Pen 25 UNIT SC (10:42)
[2022-03-04] MEDS: Menthol/Lanolin/Calamine/Znox 113 GM Tube 1 APPLIC TOPICAL (10:43)
[2022-03-04] MEDS: Spironolactone 50 MG Tablet PO (10:49)
[2022-03-04] MEDS: 0.9% Normal Saline 1,000 ML 100 ML IV (10:49)
[2022-03-04 11:06] VITALS: PULSE 100
[2022-03-04 11:31] LABS: Bedside Glucose 278 mg/dL (74-106)
--- NOTE | 2022-03-04 12:15 | PCM.DC.SUM ---
Providers Date of Admission: 03/02/22 Date of Discharge: 03/04/22 Primary Care Physician: Dr. Vincent Negro MD Consultations 03/02/22 15:45 Consult: Onc/Wound/telephone clerks supervisor Routine Comment: Reason for Consult:: stasis wounds Reason For Visit: INFLUENZA A, ? CELLULITIS, ? UTI Diagnosis Discharge Diagnosis (1) Influenza A: Status: Acute Code(s): J10.1 - Influenza due to other identified influenza virus with other respiratory manifestations (2) Cellulitis of left leg: Status: Acute Code(s): L03.116 - Cellulitis of left lower limb (3) Cellulitis of right leg: Status: Acute Code(s): L03.115 - Cellulitis of right lower limb Plan Patient is a 62-year-old lady morbidly obese with BMI of 79 presented with redness to the back and hip a day prior to coming in. An assessment of sepsis secondary to cellulitis involving the trunk and posterior thigh made. Antibiotics initiated per protocol patient admitted to regular nursing floor 1. Sepsis secondary to cellulitis involving the trunk and thighs with streptococcal species - Blood cultures so far positive for strep. Patient is MR rising screen came back positive. Patient started on piperacillin/tazobactam as well as vancomycin we will follow-up on sensitivities from her cultures -? Patient seen admit to significant improvement in overall condition. Patient is requesting discharge. Wound cultures came back positive for MSSA urine cultures came back positive for E. coli and patient did grow group C strep in the blood. Patient be assessed for possible discharge 2.Acute cystitis with E. coli ? Patient on gentle broad-spectrum antibiotic therapy as stated above we will follow-up on culture result ? Patient discharged on appropriate antibiotic therapy 3. Hypokalemia ? Potassium 3.4 additional replacement given repeat BMP ordered for a.m. 4. Class III obesity with BMI of 79 ? Complicating care weight loss advised 5. Obstructive sleep apnea ? Patient is on BiPAP at night, encouraged consistent use 6. Diabetes mellitus type II -patient's oral hypoglycemics held. Placed on long acting insulin?Lantus, Accu-Cheks a.c. and at bedtime and covered with sliding scale insulin 7. Dyslipidemia ? Patient is on pravastatin this was substituted with atorvastatin in the hospital 8. Chronic congestive heart failure with preserved ejection fraction ? Echo obtained on 03/12/2021 demonstrated EF of 55% as well as stage I diastolic dysfunction. Patient is on furosemide and Aldactone continued 9. DVT prophylaxis ? SC Lovenox Time spent in the patient's overall evaluation,decision-making process, review of diagnostic data, adjustment of management, discussion with other providers, nursing nursing and ancillary staff involved in patient's care documentation, 38 Minutes Medications at Discharge Home Medications duloxetine 60 mg capsule,delayed release 60 mg PO DAILY depression 12/02/14 aripiprazole 10 mg tablet 10 mg PO QHS Depression 10/21/17 pravastatin 20 mg tablet 20 mg PO QHS cholesterol 04/09/19 famotidine 40 mg tablet 40 mg PO DAILY stomach 11/08/19 insulin glargine 100 unit/mL (3 mL) subcutaneous pen 25 unit SQ DAILY blood sugar 11/08/19 hydrocodone-acetaminophen 5-325mg 5mg-325mg 1 tab PO BID PRN Pain 06/29/20 metformin 500 mg tablet 500 mg PO DAILY diabetes 06/29/20 potassium chloride 10 mEq capsule,extended release 10 meq PO DAILY supplement 06/29/20 acetaminophen 650 mg tablet,extended release 650 mg PO TID PRN Pain 09/14/20 spironolactone 50 mg tablet 50 mg PO DAILY fluid 09/14/20 trazodone 100 mg tablet 100 mg PO QHS SLEEP 09/14/20 cholecalciferol (vitamin D3) 125 mcg (5,000 unit) tablet (Vitamin D3) 125 mcg PO DAILY 03/02/22 dulaglutide 1.5 mg/0.5 mL subcutaneous pen injector (Trulicity) 1.5 mg subcut FR DM 03/02/22 furosemide 80 mg tablet 80 mg PO DAILY FLUID 03/02/22 gabapentin 300 mg capsule 300 mg PO QHS PAIN 03/02/22 ibuprofen 200 mg tablet 800 mg PO Q8H PRN Fever 03/02/22 methocarbamol 500 mg tablet 500 mg PO BID 03/02/22 levofloxacin 750 mg tablet 750 mg PO DAILY #10 tabs 03/04/22 Hospital Course Summary of Care Provided Minutes Spent on Discharge: 38 Physical Exam Narrative GENERAL: cooperative HEENT: Atraumatic; normocephalic EYES; Anicteric, Normal Conjunctiva NECK; supple, normal thyroid, RESPIRATORY: Diminished to auscultation CARDIOVASCULAR: Regular S1 S2, GI: soft, normoactive bowel sounds, : No Renal angle tenderness; EXTREMITIES: No edema, no clubbing, MUSCULOSKELETAL: no muscle wasting NEURO: Awake; no lateralizing signs. SKIN: Area of erythema and warmth involving the right flank as well as perirectal region PSYCH; Flat affect Weight / BMI Weight Weight: 180 kg Body Mass Index (BMI) 78.7 ABG / Lab / Microbiology Data Result Diagrams: 03/04/22 06:54 03/04/22 06:54 Laboratory: Laboratory Results - last 24 hr 03/03/22 12:16: POC Glucose 196 H 03/03/22 16:12: POC Glucose 219 H 03/03/22 21:53: POC Glucose 221 H 03/04/22 06:21: POC Glucose 187 H 03/04/22 06:54: WBC 4.7, RBC 4.00 L, Hgb 11.6 L, Hct 35.8 L, MCV 89.5, MCH 29.0, MCHC 32.4, RDW Std Deviation 43.9, RDW Coeff of Kaity 13.2, Plt Count 190, MPV 10.3, Immature Gran % (Auto) 0.200, Neut % (Auto) 68.4, Lymph % (Auto) 18.9 L, [place] % (Auto) 8.3, Eos % (Auto) 4.0, Baso % (Auto) 0.2, Absolute Neuts (auto) 3.2, Absolute Lymphs (auto) 0.89, Nucleated RBC % 0 03/04/22 06:54: Sodium 140, Potassium 3.9, Chloride 104, Carbon Dioxide 29.0, Anion Gap 7, BUN 14, Creatinine 0.56, Estim Creat Clear Calc 295.98, Est GFR (MDRD) Af Amer 141, Est GFR (MDRD) Non-Af 117, BUN/Creatinine Ratio 25.0 H, Glucose 199 H, Calcium 8.2 L, Phosphorus 2.5, Magnesium 2.2 03/04/22 10:40: POC Glucose 278 H Microbiology: Microbiology 03/02/22 15:55 Wound - Leg, Right Gram Stain - Final 03/02/22 15:55 Wound - Leg, Right Wound Culture - Final Staphylococcus aureus 03/02/22 13:10 Urine Catheter - Bailey Urine Culture - Final Escherichia coli 03/02/22 13:00 Blood Culture (Wb) - Anticubital Right Blood Culture - Final Streptococcus group B 03/02/22 13:00 Blood Culture (Wb) - Left Forearm Bacteria Detection (PCR) - Final Streptococcus agalactiae (B) 03/02/22 13:00 Blood Culture (Wb) - Left Forearm Blood Culture - Preliminary Streptococcus agalactiae (B) 03/02/22 13:10 Nasal Secretion SARS-CoV-2 & FLU Antigen (Rapid) - Final Influenzae A D/C Instructions Discharge Diet: 1800 Calorie Control Diet Discharge Activity: Return to Normal Activity Call your doctor if you observe: Fever of 101 or Higher, Shortness of breath, Fainting spells and Chest pain Meaningful Use Info Meaningful Use Diagnoses (Choose all that apply): None applicable Discharge Plan Admission Admit Date/Time: 03/02/22 14:12 Attending Provider: Adolfo Morgan Primary Care Provider: Vincent Negro Consulting Providers: Gudelia Barron Discharge Orders/Prescriptions Prescriptions: New levofloxacin 750 mg tablet 750 mg PO DAILY Qty: 10 0RF Continued pravastatin 20 mg tablet 20 mg PO QHS duloxetine 60 MG capsule,delayed release(DR/EC) 60 mg PO DAILY aripiprazole 10 MG tablet 10 mg PO QHS famotidine 40 MG tablet 40 mg PO DAILY insulin glargine 100 UNIT/ML insulin pen 25 unit SQ DAILY metformin 500 mg Tablet 500 mg PO DAILY potassium chloride 10 mEq Capsule, Extended Release 10 meq PO DAILY hydrocodone-acetaminophen 5-325 mg Tablet 1 tab PO BID PRN (Reason: Pain) acetaminophen 650 mg tablet extended release 650 mg PO TID PRN (Reason: Pain) Label Comments: take 2 tablets by mouth three times a day if needed trazodone 100 mg tablet 100 mg PO QHS MDD insomnia Label Comments: take 1 tablet by mouth every evening spironolactone 50 mg tablet 50 mg PO DAILY Label Comments: take 1 tablet by mouth once daily methocarbamol 500 mg tablet 500 mg PO BID Label Comments: take 1 tablet by mouth twice a day cholecalciferol (vitamin D3) [Vitamin D3] 125 mcg (5,000 unit) Tablet 125 mcg PO DAILY Trulicity 1.5 mg/0.5 mL pen injector 1.5 mg SUBCUT FR Label Comments: INJECT CONTENTS OF 1 PEN UNDER THE SKIN ONCE A WEEK. THROW AWAY PEN AFTER USE. Rx Instructions: LAST DOSE 02/24 ibuprofen 200 mg Tablet 800 mg PO Q8H PRN (Reason: Fever) gabapentin 300 mg capsule 300 mg PO QHS Label Comments: take 1 capsule by mouth at bedtime furosemide 80 mg tablet 80 mg PO DAILY Label Comments: take 1 tablet by mouth once daily Referrals / Follow Up: Vincent Negro MD [Primary Care Provider] - In 1 Week Disposition Disposition (needs filled in before D/C Order can be placed): Home, Self Care Charges/Coding Visit Charges Inpatient E&M: 10667 Disch Hosp >30min
[2022-03-04 13:43] VITALS: BP 127/67; PULSE 86; RESP 18; TEMP 37.1; O2SAT 96
== END 2022-03-04 14:10 | disposition home or self-care (01) | DRG 872 ==
LOC: ED 14:20 → MS3 14:27
PROVIDERS: Admitting Provider Family Medicine; Emergency Provider Emergency Medicine; PCP Family Medicine; Visit Provider Internal Medicine
DX: A41.9 Sepsis, unspecified organism (principal); E87.20 Acidosis, unspecified; L97.111 Non-pressure chronic ulcer of right thigh limited to breakdown of skin; L03.312 Cellulitis of back [any part except buttock and flank]; N30.00 Acute cystitis without hematuria; I50.32 Chronic diastolic (congestive) heart failure; L03.115 Cellulitis of right lower limb; Z68.45 Body mass index [BMI] 70 or greater, adult; L97.121 Non-pressure chronic ulcer of left thigh limited to breakdown of skin; L03.116 Cellulitis of left lower limb; E11.42 Type 2 diabetes mellitus with diabetic polyneuropathy; I11.0 Hypertensive heart disease with heart failure; B96.20 Unspecified Escherichia coli [E. coli] as the cause of diseases classified elsewhere; Z79.4 Long term (current) use of insulin; E66.01 Morbid (severe) obesity due to excess calories; J44.9 Chronic obstructive pulmonary disease, unspecified; K21.9 Gastro-esophageal reflux disease without esophagitis; E78.2 Mixed hyperlipidemia; J10.1 Influenza due to other identified influenza virus with other respiratory manifestations; G47.33 Obstructive sleep apnea (adult) (pediatric); E87.6 Hypokalemia; F41.9 Anxiety disorder, unspecified; L30.4 Erythema intertrigo; I87.2 Venous insufficiency (chronic) (peripheral); G89.29 Other chronic pain; F32.A Depression, unspecified; B95.61 Methicillin susceptible Staphylococcus aureus infection as the cause of diseases classified elsewhere; B95.1 Streptococcus, group B, as the cause of diseases classified elsewhere; Z79.82 Long term (current) use of aspirin; Z79.84 Long term (current) use of oral hypoglycemic drugs; Z79.899 Other long term (current) drug therapy; Z86.16 Personal history of COVID-19; Z86.718 Personal history of other venous thrombosis and embolism; Z87.891 Personal history of nicotine dependence
CPT/HCPCS: 36415; 80048; 80053; 81001; 82962; 83036; 83605; 83735; 84100; 85025; 85610; 85730; 87040; 87070; 87077; 87086; 87088; 87149; 87186; 87205; 87428; 87640; 87641; 93005; 94002; 94003; 94640; 94667; 94668; 94762; 97162; 97166; 97802; 99252; 99285; J7030; J7040; J7050; A4216; G0463

== ENCOUNTER 2022-03-07 16:44 | Emergency (ER) | payer MEDICARE, MEDICAID, SELFPAY ==
[2022-03-07 16:49] VITALS: BP 118/62; PULSE 89; RESP 18; TEMP 36.8; O2SAT 94; BMI 80.0
--- NOTE | 2022-03-07 17:18 | EDS_ITS ---
HPI History of Present Illness Chief Complaint: General Illness Detail of Chief Complaint: Generalized weakness, legs shaking, sweating and dizziness Informant: patient Onset/Context/Timing Onset: Today Context: Sudden Onset Timing: Intermittent Quality: Symptoms are provoked with standing position and with change in eye positio Location: Patient is presently at home. Current Severity: Patient states she does not feel well. Maximum Severity: Moderate Worsened by: Upright position and change in head position Relieved by: Supine in closing her eyes Associated Symptoms Associated Symptoms: Nausea, diaphoresis, difficulty walking because of weakness Narrative Narrative: Patient is a 62-year-old woman who was admitted last week and discharged on March 05 for cellulitis. She was discharged on levofloxacin. She states she has not had a fever in 2 days. She denies headache. She denies double vision, blurred vision or loss of vision. She denies ringing or ears or decreased hearing. She denies rhinorrhea, congestion, postnasal drainage or sore throat. She denies cough, dyspnea or dyspnea on exertion. She denies chest discomfort. She denies orthopnea or PND. She does have history of obstructive sleep apnea Pily and is compliant with her BiPAP. She does report nausea without abdominal pain, vomiting or diarrhea. She denies dysuria, frequency, urgency or hematuria. She has not looked at the rash or had anyone to look at the rash to see if there is improvement or worsening. She states there was no open wound. She contacted her primary care physician who recommended she come to the emergency department for evaluation. Prior similar symptoms: No Recent Illness/Hospitalization: Yes [facility] Medical History Anxiety and depression Chronic back pain COPD (chronic obstructive pulmonary disease) COVID-19 Diabetes mellitus, type II Esophageal reflux Essential hypertension Exertional dyspnea Heart failure History of DVT (deep vein thrombosis) Hyperparathyroidism Immobility Lumbosacral neuritis Mixed hyperlipidemia Morbid obesity JEREMÍAS treated with BiPAP Peripheral neuropathy Pulmonary hypertension Sepsis SVT (supraventricular tachycardia) Vitamin D deficiency Home Medications duloxetine 60 mg capsule,delayed release 60 mg PO DAILY depression 12/02/14 [History Last Taken 03/02/22] aripiprazole 10 mg tablet 10 mg PO QHS Depression 10/21/17 [History Last Taken 03/01/22] pravastatin 20 mg tablet 20 mg PO QHS cholesterol 04/09/19 [History Last Taken 03/01/22] famotidine 40 mg tablet 40 mg PO DAILY stomach 11/08/19 [History Last Taken 03/02/22] insulin glargine 100 unit/mL (3 mL) subcutaneous pen 25 unit SQ DAILY blood sugar 11/08/19 [History Last Taken 03/02/22] hydrocodone-acetaminophen 5-325mg 5mg-325mg 1 tab PO BID PRN Pain 06/29/20 [History Last Taken 03/01/22] metformin 500 mg tablet 500 mg PO DAILY diabetes 06/29/20 [History Last Taken 03/01/22] potassium chloride 10 mEq capsule,extended release 10 meq PO DAILY supplement 06/29/20 [History Last Taken 03/02/22] acetaminophen 650 mg tablet,extended release 650 mg PO TID PRN Pain 09/14/20 [History Last Taken 03/02/22] spironolactone 50 mg tablet 50 mg PO DAILY fluid 09/14/20 [History Last Taken 03/02/22] trazodone 100 mg tablet 100 mg PO QHS SLEEP 09/14/20 [History Last Taken 03/01/22] cholecalciferol (vitamin D3) 125 mcg (5,000 unit) tablet (Vitamin D3) 125 mcg PO DAILY 03/02/22 [History Last Taken 03/02/22] dulaglutide 1.5 mg/0.5 mL subcutaneous pen injector (Trulicity) 1.5 mg subcut FR DM 03/02/22 [History Last Taken 02/24/22] furosemide 80 mg tablet 80 mg PO DAILY FLUID 03/02/22 [History Last Taken 03/02/22] gabapentin 300 mg capsule 300 mg PO QHS PAIN 03/02/22 [History Last Taken 03/01/22] ibuprofen 200 mg tablet 800 mg PO Q8H PRN Fever 03/02/22 [History Last Taken 03/02/22 07:45] methocarbamol 500 mg tablet 500 mg PO BID 03/02/22 [History Last Taken 03/01/22] levofloxacin 750 mg tablet 750 mg PO DAILY #10 tabs 03/04/22 [Rx Last Taken Unknown] Allergy/AdvReac Type Severity Reaction Status Date / Time vancomycin Allergy Rash Verified 03/02/22 12:28 atorvastatin AdvReac Severe myalgias Verified 03/02/22 12:28 amlodipine AdvReac Unknown Verified 03/02/22 12:28 atenolol AdvReac Unknown Verified 03/02/22 12:28 bupropion HCl AdvReac Unknown Verified 03/02/22 12:28 [From Wellbutrin] fluoxetine HCl [From Prozac] AdvReac Unknown Verified 03/02/22 12:28 meloxicam [From Mobic] AdvReac Unknown Verified 03/02/22 12:28 metoprolol AdvReac Unknown Verified 03/02/22 12:28 pregabalin [From Lyrica] AdvReac Unknown Verified 03/02/22 12:28 quetiapine fumarate AdvReac Unknown Verified 03/02/22 12:28 [From Seroquel] quinapril HCl [From Accupril] AdvReac Unknown Verified 03/02/22 12:28 risperidone AdvReac Unknown Verified 03/02/22 12:28 rofecoxib [From Vioxx] AdvReac Unknown Verified 03/02/22 12:28 sitagliptin phosphate AdvReac Unknown Verified 03/02/22 12:28 [From Januvia] venlafaxine HCl AdvReac Unknown Verified 03/02/22 12:28 [From Effexor] Family History Mother Hypertension CVA (cerebral vascular accident) Diabetes Heart disease Father Hypertension COPD (chronic obstructive pulmonary disease) Sister Hypertension Sister Hypertension Diabetes Brother Hypertension Diabetes Brother Hypertension Diabetes Brother Hypertension CAD (coronary artery disease) History of coronary artery bypass surgery, Onset Age: 48 Diabetes Surgical History History of hernia repair History of laparoscopic cholecystectomy History of left heart catheterization (LHC) (~05/23/12) Social History household members: none Smoking Status: Former smoker alcohol intake: never substance use type: does not use ROS ROS ED Constitutional Constitutional ED: Reports sweats; Denies chills, fever(s), subjective or weight loss Eyes Eyes: Denies blurry vision, change in vision or diplopia ENT ENT ED: Denies ear pain, rhinorrhea or sore throat Cardiovascular Cardiovascular: Denies chest pain, orthopnea, palpitations, paroxysmal nocturnal dyspnea or racing heartbeat Respiratory/Chest Respiratory/Chest: Denies cough, dyspnea, dyspnea on exertion, orthopnea or paroxysmal nocturnal dyspnea Gastrointestinal Gastrointestinal: Reports nausea; Denies abdominal pain, diarrhea, melena or vomiting Genitourinary Genitourinary ED: Denies dysuria, hematuria or urinary frequency Musculoskeletal Musculoskeletal: Denies arthralgias, back pain, myalgias or neck pain Integumentary Reports other Details: Discharged from the hospital for cellulitis right buttocks area. ; Denies Abrasions or rash Neurologic Neurologic: Reports weakness; Denies headache(s) or paresthesias Psychiatric Psychiatric: Reports anxiety Endocrine Endocrinology: Denies polydipsia or polyuria Hematologic/Lymphatic Hematologic/Lymphatic: Reports systems reviewed and no addt'l complaints, except as documented EXAM Physical Exam Const Vital Signs: 03/07/22 16:49 03/07/22 18:29 Temperature 98.2 F Temperature Source Core Pulse Rate 89 Respiratory Rate 18 Blood Pressure 118/62 142/81 H Blood Pressure Mean 80 101 Pulse Ox 94 99 Oxygen Delivery Method Room Air Room Air Positive well nourished, well developed and obese General Appearance ED: well developed and NAD; Negative for cyanotic, diaphoretic or pallor Nutritional Appearance: obese HEENT Reports moist mucous membranes HEENT Narrative: Head is atraumatic normocephalic. Ears normal. Nares patent. TMs are normal. Uvula midline. No deviation tongue with protrusion. There is no erythema or exudate of the posterior pharynx. Eyes PERRL and EOMs intact bilaterally Eyes Narrative: There is no subconjunctival hemorrhage. There is no APD. There is no papilledema. There is no photophobia. There is no nystagmus with central gaze or lateral gaze. When I had patient follow my finger she complained of dizziness. No nystagmus was appreciated. General Eye ED: Negative for pale conjunctiva or scleral icterus Neck no lymphadenopathy, supple and no JVD Neck Narrative: Neck is palp. There is no meningeal findings. Chest Wall palpation of chest normal Resp normal respiratory effort and clear to auscultation bilaterally Cardio regular rate, regular rhythm, S1 normal heart sound, S2 normal heart sound and no murmurs GI normal to inspection, nondistended, normoactive bowel sounds, non-tender, non- distended and no masses; Negative for hepatosplenomegaly GI Narrative: Abdominal exam is limited due to body habitus Back/Spine no CVA tenderness Back/Spine Narrative: There is outline of area of cellulitis. The redness has decreased significantly. There is still some redness noted superior to the right buttocks near the lumbar sacral curvature of the back. There is no breakdown of skin. There is no fluctuance. Cervical Spine: Negative for cervical spine tenderness Thoracic Spine / Upper Back: Negative for thoracic spinal tenderness Lumbar Spine / Lower Back: Negative for lumbar spinal tenderness Extremity Negative for normal to inspection Extremity Narrative: Due to body habitus unable to appreciate palpable distal pulses. General Extremety ED: Yes edema; Negative for tenderness General Extremity: edema Neuro oriented x3, CN's II-XII intact bilaterally and no sensory deficits noted Neuro Narrative: There is no dysmetria. Running patient's head to the left or right causes dizziness. No nystagmus was appreciated. When her head was stationary there was no dizziness. Difficult to perform Orestes-Hallpike maneuver because of body habitus. Unable to perform an Joe maneuver because patient cannot even turn in the examination bed without bumping into a rail. The eye askew test was negative. The hint test was negative. There is no Babinski sign noted right or left and there is no clonus. Sensorium / Orientation: alert Motor Exam: strength 5/5 throughout Psych Mood & Affect: depressed Skin No no rashes or lesions noted, no wounds and skin turgor normal Skin Narrative: There is an area erythemic consistent with resolving cellulitis. General Skin Exam: Negative for jaundice or pallor MDM MDM MDM Narrative Medical decision making narrative: We will review recent admission. We will compare laboratory studies from this evening to most recent. Patient has benign paroxysmal positional vertigo. Because of body habitus unable to perform Joe maneuver. For this reason patient was treated with Antivert. Reluctant to treat with Valium which is considered the drug of choice because of her reported problems with standing and unsteadiness. CBC was obtained to assess white count differential. Because of her history of diabetes basic metabolic panel was obtained to assess glucose, CO2 anion gap and renal function. Case management was consulted. Micaela, the [employer] social studies tutor, informed me that patient declined placement in detention. She will see patient and talk to the patient regarding home health versus detention placement. Discharge note by Dr. Adolfo Morgan was reviewed. Patient's discharge diagnosis was influenza a, cellulitis of the right and left lower extremity. Patient had sepsis secondary to the cellulitis involving the trunk and thighs with streptococcal species. Blood cultures were negative. The MR udff screen came back positive. Patient was started on piperacillin and as well as vancomycin. Patient also had evidence of acute cystitis with E. coli. Patient has class III obesity with BMI of 79.. Review of records indicates patient has chronic congestive heart failure. White count on the was 4.7. H&H was 11.6 and 35.8. Hemoglobin is slightly elevated in comparison today. Basic metabolic panel was remarkable for glucose of 199 with a normal CO2 and anion gap. Patient was made aware of laboratory results. Patient was made aware that she does not meet criteria for repeat admission to the hospital. She declined placement and declined home health. She states she would go home. She was discharged with prescription for Antivert. As noted case management did see her regarding home health and placement. Lab Data Attestation: I reviewed the patient's lab results. Lab results narrative: CBC is unremarkable. Differential is slightly elevated. There is no bandemia. Basic metabolic panel is markable for an elevated glucose of 187. CO2 anion gap are normal. GFR is 85. Lactate is normal. Patient was made aware of her laboratory results. Labs: Laboratory Results - last 24 hr 03/07/22 03/07/22 03/07/22 17:15 17:15 17:15 WBC 6.2 RBC 4.30 Hgb 12.6 Hct 37.7 MCV 87.7 MCH 29.3 MCHC 33.4 RDW Std Deviation 40.9 RDW Coeff of Kaity 12.9 Plt Count 251 MPV 10.1 Immature Gran % (Auto) 0.200 Neut % (Auto) 70.3 H Lymph % (Auto) 19.7 Barry % (Auto) 7.2 Eos % (Auto) 2.1 Baso % (Auto) 0.5 Absolute Neuts (auto) 4.4 Absolute Lymphs (auto) 1.23 Nucleated RBC % 0 Sodium 139 Potassium 3.7 Chloride 102 Carbon Dioxide 31.0 Anion Gap 6 BUN 19 H Creatinine 0.74 Estim Creat Clear Calc 223.74 Est GFR (MDRD) Af Amer 103 Est GFR (MDRD) Non-Af 85 BUN/Creatinine Ratio 25.8 H Glucose 187 H Lactic Acid 1.5 Calcium 9.3 Rhythm Strip Rhythm Strip: Sinus Rhythm Rate: 84 Ectopy: None Discharge Plan Triage Chief Complaint: General Illness ED Provider: Mike Crespo Dx/Rx/DC Orders Clinical Impression: Benign paroxysmal positional vertigo, Generalized weakness, Morbid obesity with BMI of 70 and over, adult, Hyperglycemia due to type 2 diabetes mellitus, Cellulitis Instructions: ED BPV Vertigo, ED Weakness (Uncertain Cause) Prescriptions: No Action pravastatin 20 mg tablet 20 mg PO QHS duloxetine 60 MG capsule,delayed release(DR/EC) 60 mg PO DAILY aripiprazole 10 MG tablet 10 mg PO QHS famotidine 40 MG tablet 40 mg PO DAILY insulin glargine 100 UNIT/ML insulin pen 25 unit SQ DAILY metformin 500 mg Tablet 500 mg PO DAILY potassium chloride 10 mEq Capsule, Extended Release 10 meq PO DAILY hydrocodone-acetaminophen 5-325 mg Tablet 1 tab PO BID PRN (Reason: Pain) acetaminophen 650 mg tablet extended release 650 mg PO TID PRN (Reason: Pain) Label Comments: take 2 tablets by mouth three times a day if needed trazodone 100 mg tablet 100 mg PO QHS MDD insomnia Label Comments: take 1 tablet by mouth every evening spironolactone 50 mg tablet 50 mg PO DAILY Label Comments: take 1 tablet by mouth once daily methocarbamol 500 mg tablet 500 mg PO BID Label Comments: take 1 tablet by mouth twice a day cholecalciferol (vitamin D3) [Vitamin D3] 125 mcg (5,000 unit) Tablet 125 mcg PO DAILY Trulicity 1.5 mg/0.5 mL pen injector 1.5 mg SUBCUT FR Label Comments: INJECT CONTENTS OF 1 PEN UNDER THE SKIN ONCE A WEEK. THROW AWAY PEN AFTER USE. Rx Instructions: LAST DOSE 02/24 ibuprofen 200 mg Tablet 800 mg PO Q8H PRN (Reason: Fever) gabapentin 300 mg capsule 300 mg PO QHS Label Comments: take 1 capsule by mouth at bedtime furosemide 80 mg tablet 80 mg PO DAILY Label Comments: take 1 tablet by mouth once daily levofloxacin 750 mg tablet 750 mg PO DAILY Qty: 10 0RF Primary Care Provider: Vincent Negro Referrals: Vincent Negro MD [Primary Care Provider] - 3-5 Days Disposition Disposition: Home, Self Care
[2022-03-07] MEDS: Meclizine HCl 25 MG Tablet PO (17:27)
[2022-03-07 17:40] LABS: Absolute Lymphocyte Count 1.23 X10^3/uL (0.83-4.51); Absolute Neutrophil Count 4.4 X10^3/uL (2.0-7.7); Basophil# 0.03 X10^3/uL; Basophil% 0.5 % (0-1); Eosinophil# 0.13 X10^3/uL; Eosinophils% 2.1 % (0-5); Hematocrit 37.7 % (37-47); Hemoglobin 12.6 g/dL (12.0-15.0); Lymphocyte # 1.23 X10^3/ul (0.83-4.51); Lymphocyte % 19.7 % (19-41); Mean Corp Hgb Conc 33.4 g/dL (32-36); Mean Corpuscular Hgb 29.3 pg (27.0-32.0); Mean Corpuscular Volume 87.7 fL (81-99); Mean Platelet Vol. 10.1 fl (6.2-12.0); Monocyte# 0.45 X10^3/uL; Monocyte% 7.2 % (0-10); NRBC Flagged by Analyzer 0 % (0-5); Neutrophil # 4.39 X10^3/uL (2.7-7.7); Neutrophil % 70.3 % (47-70); Platelet Count 251 K/mm3 (150-450); RBC Distribution Width CV 12.9 % (11.6-14.6); RBC Distribution Width SD 40.9 fl (35.1-43.9); White Blood Count 6.2 K/mm3 (4.4-11.0)
--- NOTE | 2022-03-07 17:55 | CM.ED ---
SW Note Darryl met with patient as she was discharged from acute hospital on 03/04/22 and presented to the ED for weakness. SW discussed patient's safety in the home and possible need for SNF. Patient said that she has a home health aide that comes to the house and her sister lives 3 doors down for support. Patient said that she called [facility] regarding outpatient PT/OT and has a prescription. Patient declined referral to SNF and said I will think about it when asked about SNF. DARRYL updated MD. DARRYL provided patient with [employer] resources. Miacela BOTELLO
[2022-03-07 17:58] LABS: Anion Gap 6 (5-15); BUN 19 mg/dL (7-18); BUN/Creat Ratio 25.8 RATIO (10-20); Calcium,Total 9.3 mg/dL (8.5-10.1); Chloride 102 mmol/L (98-107); Creatinine, Serum 0.74 mg/dL (0.55-1.02); EST Glomerular Filtration Rate 85 mL/min (>60); Est Glom Filt Rate - Afr Amer 103 mL/min (>60); Estimated Creatinine Clearance 223.74 ml/min; Glucose 187 mg/dL (74-106); Potassium 3.7 mmol/L (3.5-5.1); Sodium Level 139 mmol/L (136-145)
[2022-03-07 18:16] LABS: Lactic Acid 1.5 mmol/L (0.4-1.9)
[2022-03-07 18:29] VITALS: BP 142/81; O2SAT 99
[2022-03-07 19:15] VITALS: BP 137/70; PULSE 84; RESP 19; O2SAT 96
--- NOTE | 2022-03-07 20:56 | CM.ED ---
SW noted that MD Crespo had ordered home health. However, MD Crespo told this medical writer that patient did not want home health or any home services. No further SW needs at this time. Micaela BOTELLO
[2022-03-07 21:43] VITALS: BP 128/81; PULSE 84; RESP 19; O2SAT 93
== END 2022-03-07 22:34 | disposition home or self-care (01) ==
PROVIDERS: Emergency Provider Emergency Medicine; PCP Family Medicine; Referring Provider Specialist; Visit Provider Emergency Medicine
DX: R53.1 Weakness (principal); I11.0 Hypertensive heart disease with heart failure; I50.9 Heart failure, unspecified; E11.65 Type 2 diabetes mellitus with hyperglycemia; E11.40 Type 2 diabetes mellitus with diabetic neuropathy, unspecified; E66.01 Morbid (severe) obesity due to excess calories; Z68.45 Body mass index [BMI] 70 or greater, adult; Z79.4 Long term (current) use of insulin; H81.10 Benign paroxysmal vertigo, unspecified ear; L03.115 Cellulitis of right lower limb; L03.116 Cellulitis of left lower limb; L03.312 Cellulitis of back [any part except buttock and flank]; G47.33 Obstructive sleep apnea (adult) (pediatric); E78.2 Mixed hyperlipidemia; F32.A Depression, unspecified; F41.9 Anxiety disorder, unspecified; Z79.85 Long-term (current) use of injectable non-insulin antidiabetic drugs; Z79.84 Long term (current) use of oral hypoglycemic drugs; Z79.899 Other long term (current) drug therapy; Z86.16 Personal history of COVID-19
CPT/HCPCS: 80048; 83605; 85025; 99285; A4216

== ENCOUNTER 2023-05-17 12:52 | Outpatient (RCR) | payer MEDICARE, MEDICAID, SELFPAY ==
[2023-05-17 13:15] VITALS: BP 139/72; PULSE 75; RESP 16; TEMP 36.3; BMI 77.3
--- NOTE | 2023-05-17 16:50 | PCM.WC.HP ---
History of Present Illness Date of Service: 05/17/23 Chief Complaint: Pressure ulceration of the left proximal posterior thigh History of Wound: Joselyn Khan is a 63 y/o female who presents today for evaluation and management of a left posterior thigh ulceration. She reports that she has had ulcerations to her posterior legs and buttocks recurrently over the last 4 years. She is not sure how long the current ulceration has been there, maybe a few weeks. She is not able to visualize the area but reports it always feels very tender and uncomfortable. She states that her sister (who also acts as her home health aid) tells her the area is persistently red/purple and with areas of thickened flaky skin. She has been applying a cream provided by a different wound center in the past but isn't sure of the name. She is morbidly obese with a BMI of 77.4. She also has significant osteoarthritis of her knees and hips. This combination severely limits her mobility. She does ambulate short distances at home with a rollator. Outside of the home she utilizes an automated wheelchair. She has a hospital bed at home but is not able to sleep in it because she cannot lift her legs into the bed. She spends most of her time and sleeps in a recliner. She has an offloading pad for her wheelchair but cannot use it because the added height makes it difficult for her to get into the wheelchair. She does not have an offloading pad for the recliner. She reports she does try to get up and at least stand every hour or so, she really isn't able to change positions. She does also struggle with urinary incontinence. She is not able to utilize depends due to discomfort and/or size. She does her best to keep the area clean and dry but does have difficulty with this at times. She has not been using a barrier cream because she was worried this was drying out her skin and causing the flakiness. She is diabetic with pretty good control, last A1c around 7 by report. She does not smoke. She does not have any known autoimmune conditions. She does not take any blood thinners. She has lost 40 pounds recently. [facility] Medical History Anxiety and depression Chronic back pain COPD (chronic obstructive pulmonary disease) COVID-19 Diabetes mellitus, type II Esophageal reflux Essential hypertension Exertional dyspnea Heart failure History of DVT (deep vein thrombosis) Hyperparathyroidism Immobility Lumbosacral neuritis Mixed hyperlipidemia Morbid obesity JEREMÍAS treated with BiPAP Peripheral neuropathy Pulmonary hypertension Sepsis SVT (supraventricular tachycardia) Vitamin D deficiency Home Medications duloxetine 60 mg capsule,delayed release 60 mg PO DAILY depression 12/02/14 [History Last Taken 03/02/22] aripiprazole 10 mg tablet 10 mg PO QHS Depression 10/21/17 [History Last Taken 03/01/22] pravastatin 20 mg tablet 20 mg PO QHS cholesterol 04/09/19 [History Last Taken 03/01/22] famotidine 40 mg tablet 40 mg PO DAILY stomach 11/08/19 [History Last Taken 03/02/22] insulin glargine 100 unit/mL (3 mL) subcutaneous pen 35 unit SQ DAILY blood sugar 11/08/19 [History Last Taken 03/02/22] hydrocodone-acetaminophen 5-325mg 5mg-325mg 1 tab PO BID PRN Pain 06/29/20 [History Last Taken 03/01/22] potassium chloride 10 mEq capsule,extended release 10 meq PO DAILY supplement 06/29/20 [History Last Taken 03/02/22] acetaminophen 650 mg tablet,extended release 650 mg PO TID PRN Pain 09/14/20 [History Last Taken 03/02/22] spironolactone 50 mg tablet 25 mg PO DAILY fluid 09/14/20 [History Last Taken 03/02/22] trazodone 100 mg tablet 100 mg PO QHS SLEEP 09/14/20 [History Last Taken 03/01/22] cholecalciferol (vitamin D3) 125 mcg (5,000 unit) tablet (Vitamin D3) 125 mcg PO DAILY 03/02/22 [History Last Taken 03/02/22] furosemide 80 mg tablet 80 mg PO DAILY FLUID 03/02/22 [History Last Taken 03/02/22] gabapentin 300 mg capsule 300 mg PO Q12H PAIN 03/02/22 [History Last Taken 03/01/22] ibuprofen 200 mg tablet 800 mg PO Q8H PRN Fever 03/02/22 [History Last Taken 03/02/22 07:45] albuterol sulfate 90 mcg/actuation aerosol inhaler 2 inh inhalation Q4H PRN shortness of breath or wheezing 05/17/23 [History Last Taken Unknown] ascorbic acid (vitamin C) 1,500 mg tablet,extended release 1,500 mg PO DAILY 05/17/23 [History Last Taken Unknown] glucosamine 750 [id number] 644 mg-C 30 mg-galdino 1 mg tablet (Osteo Bi-Flex Triple Strength) 1 tab PO BID 05/17/23 [History Last Taken Unknown] hydroxyzine pamoate 25 mg capsule 25 mg PO Q8H PRN anxiety 05/17/23 [History Last Taken Unknown] potassium chloride 8 mEq capsule,extended release 8 meq PO DAILY 05/17/23 [History Last Taken Unknown] ropinirole 0.25 mg tablet 0.25 mg PO QHS 05/17/23 [History Last Taken Unknown] tizanidine 4 mg capsule 4 mg PO TID PRN muscle spasticity 05/17/23 [History Last Taken Unknown] Allergy/AdvReac Type Severity Reaction Status Date / Time vancomycin Allergy Rash Verified 03/02/22 12:28 atorvastatin AdvReac Severe myalgias Verified 03/02/22 12:28 amlodipine AdvReac Unknown Verified 03/02/22 12:28 atenolol AdvReac Unknown Verified 03/02/22 12:28 bupropion HCl AdvReac Unknown Verified 03/02/22 12:28 [From Wellbutrin] fluoxetine HCl [From Prozac] AdvReac Unknown Verified 03/02/22 12:28 meloxicam [From Mobic] AdvReac Unknown Verified 03/02/22 12:28 metoprolol AdvReac Unknown Verified 03/02/22 12:28 pregabalin [From Lyrica] AdvReac Unknown Verified 03/02/22 12:28 quetiapine fumarate AdvReac Unknown Verified 03/02/22 12:28 [From Seroquel] quinapril HCl [From Accupril] AdvReac Unknown Verified 03/02/22 12:28 risperidone AdvReac Unknown Verified 03/02/22 12:28 rofecoxib [From Vioxx] AdvReac Unknown Verified 03/02/22 12:28 sitagliptin phosphate AdvReac Unknown Verified 03/02/22 12:28 [From Januvia] venlafaxine HCl AdvReac Unknown Verified 03/02/22 12:28 [From Effexor] Family History Mother Hypertension CVA (cerebral vascular accident) Diabetes Heart disease Father Hypertension COPD (chronic obstructive pulmonary disease) Sister Hypertension Sister Hypertension Diabetes Brother Hypertension Diabetes Brother Hypertension Diabetes Brother Hypertension CAD (coronary artery disease) History of coronary artery bypass surgery, Onset Age: 48 Diabetes Surgical History History of hernia repair History of laparoscopic cholecystectomy History of left heart catheterization (LHC) (~05/23/12) Social History household members: none Smoking Status: Former smoker alcohol intake: never substance use type: does not use Vital Signs Vital Signs Vital Signs: 05/17/23 13:15 Temperature 97.3 F L Temperature Source Temporal Pulse Rate 75 Respiratory Rate 16 Blood Pressure 139/72 H Blood Pressure Mean 94 Blood Pressure Source Monitor Blood Pressure Position Sitting Blood Pressure Location Left Forearm Oxygen Delivery Method Room Air Weight Weight: 383 lb Body Mass Index (BMI) 77.3 Physical Exam Const alert, oriented x3 and no apparent distress Nutritional Appearance: morbidly obese HEENT normocephalic, hearing grossly normal bilaterally, external ears normal and external nose normal Eyes EOMs intact bilaterally General Eye: normal appearance of both eyes Neck General: normal visual inspection and trachea midline Resp normal respiratory effort, normal air movement, no retractions and no use of accessory muscles Effort and Inspection: able to speak in complete sentences Extremity General Extremity: edema bilateral (mild) Skin Wounds: wounds noted Wound Narrative: She has persistent red/purple discoloration diffusely across her bilateral posterior thighs and buttocks consistent with chronic pressure injury. She has one focal area with skin breakdown on the L posterior proximal thigh, measurements as noted in debridement section. She has scattered areas with thickened and flaking skin bilaterally but without associated open wound. There is no warmth, foul odor, focal swelling, significant drainage. Neuro oriented x3, CN's II-XII intact bilaterally, moves all extremities and no focal motor deficits Speech: speech normal Debridement Note Debridement Note Wound debrided: L posterior thigh Laterality: Left Wound Grade/Stage: Stage 2 Type of Debridement: Excisional debridement Anesthesia Used: 5% Lidocaine Gel Depth: Down to and including healthy tissue Percentage of wound debrided: 100 Instrument Used: 3mm curette Tissue Removed: devitalized tissue Severity: Limited To Skin Breakdown Amount of bleeding with debridement: Mild Bleeding Controlled with: Pressure Patient tolerated procedure: Patient tolerated procedure well Post-Debridement Measurements and Additional Note: Post-Debridement Measurements/Treatment - Nurse 1 - General Ulcer Assessment Start: 05/17/23 13:14 Freq: Status: Active Protocol: [email or web address] Activity Type Activity Date Activity User E-sign Co-sign Detail Recorded Client Recorded Date Recorded By Document 05/17/23 13:15 CP Desktop 05/17/23 13:31 CP 05/17/23 13:15 - Today's Visit Information Type of service Initial Visit Arrival Mode Wheelchair Patient Identification Verified (Name & Yes ) Patient Requires Transmission-Based No Precautions Safety Precautions Fall Prevention Finger Stick Blood Sugar(mg/dl) (if 137 indicated): Blood Sugar Stated by Patient Height and Weight Height 4 ft 11 in Weight 383 lb Weight in Pounds 383.0 lbs Weight Measurement Method Stated by Patient Body Mass Index (BMI) 77.3 BMI Classification Obese BSA - Jamin 2.43 Vital Signs Temperature (97.8 F-99.1 F) 97.3 F L Temperature Source Temporal Pulse Rate (60-100) 75 Pulse Location Monitor Respiratory Rate (12-18) 16 Respiratory rate source Observation Oxygen Delivery Method Room Air Blood Pressure (90/60-120/80) 139/72 H Blood Pressure Mean 94 Source Monitor Position Sitting Blood Pressure Location Left Forearm History Since Last Visit- (Skip if this is Patient's initial visit) Left Footwear Regular Shoe Right Footwear Regular Shoe Pain Scale: 0-10 Numeric Is Patient Pain Free? No back, knees -Description Aching -Intensity 8 -Duration (hours) Chronic -Pain Behavior No Change in Behavior -Alleviating Factors/Interventions Distraction -Effectiveness of Alleviating Factor/ Moderately Intervention effective Communication Assessment Preferred language Swedish Chief Orthoptist Required No Able to Read Yes Able to Write Yes Communication Tools None Right Hearing Abillity Normal Left Hearing Abillity Normal Visual Assistive Devices None Teaching Assessment Preferences Verbal,Written, Demonstration Barriers to Learning Knowledge Deficit Readiness To Learn Excellent Willingness to Engage in Self Management High Activies Readiness to Engage in Self Management High Activities Anxiety Level Calm Cooperation Cooperative Perception Coherent Interest in Health Problem Asks Questions Education Importance Acknowledges Need Does Patient Smoke tobacco or other No substances Smoking Status Former smoker Is Patient Diabetic Yes Culture/Latter Day/[employer] Cultural/Latter Day Needs that may affect No Treatment Plan Teaching: Wound Center *Welcome to the Wound Center -Person Taught Patient -Teaching Method Demonstration -Response to teaching Verbalize understanding WC - Nurse 1 - General Ulcer Measurement Start: 05/17/23 13:14 Freq: Status: Active Protocol: Activity Type Activity Date Activity User E-sign Co-sign Detail Recorded Client Recorded Date Recorded By Document 05/17/23 13:15 Desktop 05/17/23 13:31 05/17/23 13:15 Wound Center Nurse 1 2. left post upper leg -Current Size (cm) - Length 0.1 -Current Size (cm) - Width 0.1 -Current Size (cm) - Depth 0.1 -Total Square Cm 0.01 -Photo Taken Yes -Epithelialization Large 67-100% -Tunneling No -Undermining/Tunneling No -Circular Undermining No -Classification - Thickness Partial Thickness -Exudate Amt None Present -Wound Margin Flat & Intact -Granulation Amt None Present (0 %) -Slough/Fibrin No -Necrosis Amt None Present (0 %) -Structure Exposed N/A -Texture (Yoon-wound Skin Appearance) No Abnormality -Moisture (Yoon-wound Skin Appearance) No Abnormality -Color (Yoon-wound Skin Appearance) Ecchymosis -Temperature (Yoon-wound Skin No Abnormality Appearance) (Pt Warm) -Tenderness on Palpation (Yoon-wound No Skin Appearance) -Ulcer Cleansing Rinsed/ Irrigated with Saline ELIZABET - Nurse 2 - General Ulcer CM Notes Start: 05/17/23 13:14 Freq: Status: Active Protocol: Activity Type Activity Date Activity User E-sign Co-sign Detail Recorded Client Recorded Date Recorded By Document 05/17/23 13:56 Desktop 05/17/23 14:12 05/17/23 13:56 Wound Center Nurse 2 -Time 13:56 -Correct Patient Yes -Correct Side, Site, Position Yes -Correct Procedure Yes -Procedure Performed Yes -Type of Procedure Debridement -Clinical Debridement Subcutaneous -Tissue Removed Subcutaneous -Post Debridement (cm) - Length 0.5 -Post Debridement (cm) - Width 0.5 -Post Debridement (cm) - Depth 0.1 -Total Square (Post) (cm) 0.25 -Area of Debridement (cm) - Length 0.5 -Area of Debridement (cm) - Width 0.5 -Total Square (Area) (cm) 0.25 -Tunneling No -Undermining/Tunneling No -Circular Undermining No -Wound/Ulcer Outcome Not Healed -Ulcer Cleansing Rinsed/ Irrigated with Saline -Foul Odor after Cleansing No -Bioengineered Tissue No -Bleeding Controlled with Pressure -Treatment Response Procedure Tolerated Well -Debridement - Subq, 1st 20sq cm Yes Pain Scale: 0-10 Numeric Is Patient Pain Free? Yes WC - Nurse 3 - General Ulcer D/C NN Start: 05/17/23 13:14 Freq: Status: Active Protocol: Activity Type Activity Date Activity User E-sign Co-sign Detail Recorded Client Recorded Date Recorded By Document 05/17/23 14:20 GM Desktop 05/17/23 14:20 GM 05/17/23 14:20 Wound Care Center Nurse 3 2. left post upper leg -Ulcer Cleansing Not Cleansed -Foul Odor after Cleansing No -Primary Dressing Applied Mepilex Border, Promogran -Mepilex Border 3 -Promogran 1 Pain Scale: 0-10 Numeric Is Patient Pain Free? Yes WC - Visit Discharge Discharge Condition Stable Ambulatory Status Wheelchair Transportation Private Auto Clinical Summary of Care Provided Yes Charges/Coding Visit Charges Office Visits / Consults: 85915 OV L4 Est 30min Procedures Integumentary [id number]: [id number] Shanna subq tissue 20 sq cm/< Assessment/Plan Assessment/Plan (1) Morbid obesity with BMI of 70 and over, adult: CODE(S): E66.01 - Morbid (severe) obesity due to excess calories; Z68.45 - Body mass index [BMI] 70 or greater, adult (2) Pressure ulcer of upper thigh: CODE(S): L89.209 - Pressure ulcer of unspecified hip, unspecified stage PLAN: Plan For wound dressings, will apply lightly moistened Promogran to the wound bed and cover with silicone border foam dressing. Change daily or more often as needed to keep clean and dry. With dressing changes, cleanse the area with antibacterial soap and water and pat to dry. Okay to shower and allow soap and water to rince over the area. For care of the periwound skin, I recommend applying a fragrance free moisturizer such as Vanicream, Eucerin, etc to the bilateral posterior thighs and buttocks. Allow the lotion to soak in. Then apply a barrier cream such as Desitin, A+D, Triad, Calmoseptine to the buttocks/intertriginous areas to protect from chronic moisture associated with skin folds and incontinence. These wounds develop secondary to chronic pressure injury. We discussed how this occurs and that it will continue to be a recurrent issue unless pressure can be adequately offloaded. I strongly recommend obtaining an offloading pad for her recliner. May also be of benefit to look into lower beds which may allow her to get into the bed. She would significantly benefit from a low air loss mattress if she were to have a bed that was accessible to her. We will see if there are options for coverage through her insurance. Also strongly advised changing positions/standing/walking frequently throughout the day, every 30-60 minutes. Of course, we discussed the importance of continued weight loss and she is encouraged to continue with this effort. We discussed available nutritional supplements such as Jonah/Glucerna. She is encouraged to continue with good glycemic control. She will return in 1 week or sooner as needed.
--- NOTE | 2023-05-25 11:27 | WC ---
3.28.24 LT POST THIGH INITIAL
== END 2023-05-20 23:59 | disposition home or self-care (01) ==
LOC: WC 12:52
PROVIDERS: PCP Family Medicine; Referring Provider Clinical Nurse Specialist Adult Health; Visit Provider Physician Assistant
DX: L89.892 Pressure ulcer of other site, stage 2 (principal); I11.0 Hypertensive heart disease with heart failure; I50.9 Heart failure, unspecified; J44.9 Chronic obstructive pulmonary disease, unspecified; Z68.45 Body mass index [BMI] 70 or greater, adult; E66.01 Morbid (severe) obesity due to excess calories; E11.42 Type 2 diabetes mellitus with diabetic polyneuropathy; Z79.4 Long term (current) use of insulin; R32 Unspecified urinary incontinence; Z86.16 Personal history of COVID-19; E78.2 Mixed hyperlipidemia; Z87.891 Personal history of nicotine dependence
CPT/HCPCS: 11042; 99213; G0463

== ENCOUNTER 2023-06-14 13:30 | Outpatient (RCR) | payer MEDICARE, MEDICAID, SELFPAY ==
[2023-05-21 00:52] VITALS: BP 139/72; PULSE 75; RESP 16; TEMP 36.3; BMI 77.3
[2023-05-31 13:23] VITALS: BP 124/54; PULSE 72; RESP 22; TEMP 36.3; BMI 77.3
--- NOTE | 2023-05-31 17:07 | PCM.WC.PN ---
History of Present Illness Date of Service: 05/31/23 Chief Complaint: Pressure ulceration of the left proximal posterior thigh History of Wound: Joselyn Khan is a 63 y/o female who presents today for evaluation and management of a left posterior thigh ulceration. She reports that she has had ulcerations to her posterior legs and buttocks recurrently over the last 4 years. She is not sure how long the current ulceration has been there, maybe a few weeks. She is not able to visualize the area but reports it always feels very tender and uncomfortable. She states that her sister (who also acts as her home health aid) tells her the area is persistently red/purple and with areas of thickened flaky skin. She has been applying a cream provided by a different wound center in the past but isn't sure of the name. She is morbidly obese with a BMI of 77.4. She also has significant osteoarthritis of her knees and hips. This combination severely limits her mobility. She does ambulate short distances at home with a rollator. Outside of the home she utilizes an automated wheelchair. She has a hospital bed at home but is not able to sleep in it because she cannot lift her legs into the bed. She spends most of her time and sleeps in a recliner. She has an offloading pad for her wheelchair but cannot use it because the added height makes it difficult for her to get into the wheelchair. She does not have an offloading pad for the recliner. She reports she does try to get up and at least stand every hour or so, she really isn't able to change positions. She does also struggle with urinary incontinence. She is not able to utilize depends due to discomfort and/or size. She does her best to keep the area clean and dry but does have difficulty with this at times. She has not been using a barrier cream because she was worried this was drying out her skin and causing the flakiness. She is diabetic with pretty good control, last A1c around 7 by report. She does not smoke. She does not have any known autoimmune conditions. She does not take any blood thinners. She has lost 40 pounds recently. Subjective Subjective She has done well with dressing changes overall. She has been diligent with applying Eucerin cream as well. Her sister does her dressing changes and she feels that the periwound skin has improved with less flaking etc. She reports good progress with the wound on the L posterior thigh. She reports an area on her R posterior thigh which was healed over at last visit has reopened. She denies any N/V, F/C. She has heard from two different companies about a new bed which will lower to 12 inches off the ground which will allow her to more easily get into the bed. She is planning to receive this from [facility] as it will be free to her through them. She is not sure about a low air-loss mattress. Objective Data Objective Data Vital Signs: Vital Signs Temp Pulse Resp BP 97.3 F L 72 22 H 124/54 H 05/31/23 13:23 05/31/23 13:23 05/31/23 13:23 05/31/23 13:23 Weight: 383 lb Body Mass Index (BMI) 77.3 Charges/Coding Procedures Integumentary [id number]: [id number] Shanna subq tissue 20 sq cm/< Physical Exam Const alert, oriented x3 and no apparent distress Nutritional Appearance: morbidly obese HEENT normocephalic, hearing grossly normal bilaterally, external ears normal and external nose normal Eyes EOMs intact bilaterally General Eye: normal appearance of both eyes Neck General: normal visual inspection and trachea midline Resp normal respiratory effort, normal air movement, no retractions and no use of accessory muscles Effort and Inspection: able to speak in complete sentences Extremity General Extremity: edema bilateral (mild) Skin Wounds: wounds noted Wound Narrative: She has persistent red/purple discoloration diffusely across her bilateral posterior thighs and buttocks consistent with chronic pressure injury. L posterior proximal thigh wound has decreased in size, measurements as noted in debridement section. Now there is a cluster of skin breakdown on the R posterior thigh, measurements as noted in debridement section. Skin on the bilateral posterior thighs/buttock is overall improved with much less flaking. There is no warmth, foul odor, focal swelling, significant drainage. Neuro oriented x3, CN's II-XII intact bilaterally, moves all extremities and no focal motor deficits Speech: speech normal Debridement Note Debridement Note Wound debrided: L posterior thigh Laterality: Left Wound Grade/Stage: Stage 2 Type of Debridement: Excisional debridement Anesthesia Used: 5% Lidocaine Gel Depth: Down to and including healthy tissue Percentage of wound debrided: 100 Instrument Used: 3mm curette Tissue Removed: devitalized tissue Severity: Limited To Skin Breakdown Amount of bleeding with debridement: Mild Bleeding Controlled with: Pressure Patient tolerated procedure: Patient tolerated procedure well Post-Debridement Measurements and Additional Note: Post-Debridement Measurements/Treatment - Nurse 1 - General Ulcer Assessment Start: 05/31/23 13:22 Freq: Status: Active Protocol: ANNMARIE Activity Type Activity Date Activity User E-sign Co-sign Detail Recorded Client Recorded Date Recorded By Document 05/31/23 13:23 DL Desktop 05/31/23 13:35 DL 05/31/23 13:23 WC - Today's Visit Information Type of service Follow-up Visit (Physician/RADIATION TECHNICIAN ) Arrival Mode Wheelchair Transfer Assistance None Patient Identification Verified (Name & Yes ) Patient Requires Transmission-Based No Precautions Height and Weight Body Mass Index (BMI) 77.3 BMI Classification Obese Vital Signs Temperature (97.8 F-99.1 F) 97.3 F L Temperature Source Temporal Pulse Rate (60-100) 72 Pulse Location Monitor Respiratory Rate (12-18) 22 H Respiratory rate source Observation Blood Pressure (90/60-120/80) 124/54 H Blood Pressure Mean (mm Hg) 77 Source Monitor History Since Last Visit- (Skip if this is Patient's initial visit) Have you changed medications since your No last visit? Any new allergies or adverse reactions No Had a fall/change in ADL's that may No increase risk of falls Signs or symptoms of abuse and/or No neglect since last visit Have you been in the hospital since your No last visit? Has dressing in place as prescribed Yes Has compression in place as prescribed N/A Has offloadiing in place as prescribed Yes Experienced any changes in pain level or No management Pain Scale: 0-10 Numeric Is Patient Pain Free? Yes - Nurse 1 - General Ulcer Measurement Start: 05/31/23 13:22 Freq: Status: Active Protocol: Activity Type Activity Date Activity User E-sign Co-sign Detail Recorded Client Recorded Date Recorded By Document 05/31/23 13:23 DL Absioktop 05/31/23 13:35 DL 05/31/23 13:23 Wound Center Nurse 1 2. left post upper leg -Current Size (cm) - Length 0.1 -Current Size (cm) - Width 0.1 -Current Size (cm) - Depth 0.1 -Total Square Cm 0.01 -Exudate Amt None Present -Wound Margin Indistinct, Non -Visible -Granulation Amt Small (1-33%) -Granulation Quality [place] -Necrosis Amt None Present (0 %) -Structure Exposed N/A -Texture (Yoon-wound Skin Appearance) Localized Edema ,Scarring -Moisture (Yoon-wound Skin Appearance) No Abnormality -Color (Yoon-wound Skin Appearance) Ecchymosis -Ulcer Cleansing Soap and Water -Foul Odor after Cleansing Yes, Due to Product Use -Anesthetic Used 5% Lidocaine Gel WC - Nurse 2 - General Ulcer CM Notes Start: 05/31/23 13:22 Freq: Status: Active Protocol: Activity Type Activity Date Activity User E-sign Co-sign Detail Recorded Client Recorded Date Recorded By Document 05/31/23 14:16 Desktop 05/31/23 14:17 05/31/23 14:16 Wound Center Nurse 2 -Time 14:16 -Correct Patient Yes -Correct Side, Site, Position Yes -Correct Procedure Yes -Procedure Performed Yes -Type of Procedure Debridement -Clinical Debridement Subcutaneous -Tissue Removed Subcutaneous -Post Debridement (cm) - Length 1.5 -Post Debridement (cm) - Width 0.5 -Post Debridement (cm) - Depth 0.1 -Total Square (Post) (cm) 0.75 -Area of Debridement (cm) - Length 1.5 -Area of Debridement (cm) - Width 0.5 -Total Square (Area) (cm) 0.75 -Tunneling No -Undermining/Tunneling No -Circular Undermining No -Wound/Ulcer Outcome Not Healed -Ulcer Cleansing Rinsed/ Irrigated with Saline -Foul Odor after Cleansing No -Bioengineered Tissue No -Bleeding Controlled with Pressure -Treatment Response Procedure Tolerated Well -Debridement - Subq, 1st 20sq cm Yes Pain Scale: 0-10 Numeric Is Patient Pain Free? Yes - Nurse 3 - General Ulcer D/C NN Start: 05/31/23 13:22 Freq: Status: Active Protocol: Activity Type Activity Date Activity User E-sign Co-sign Detail Recorded Client Recorded Date Recorded By Document 05/31/23 14:17 Desktop 05/31/23 14:18 05/31/23 14:17 Wound Care Center Nurse 3 2. left post upper leg -Ulcer Cleansing Not Cleansed -Foul Odor after Cleansing No -Primary Dressing Applied Mepilex Border, Promogran -Mepilex Border 2 -Promogran 1 Pain Scale: 0-10 Numeric Is Patient Pain Free? Yes WC - Visit Discharge Discharge Condition Stable Ambulatory Status Wheelchair Transportation Private Auto Clinical Summary of Care Provided Yes Additional Wound Wound debrided: R posterior thigh Laterality: Right Wound Grade/Stage: Stage 2 Type of Debridement: Excisional debridement Depth: Down to and including healthy tissue Percentage of wound debrided: 100 Instrument Used: 3mm curette Tissue Removed: devitalized tissue Severity: Limited To Skin Breakdown Amount of bleeding with debridement: Mild Bleeding Controlled with: Pressure Patient tolerated procedure: Patient tolerated procedure well Assessment/Plan Assessment/Plan (1) Morbid obesity with BMI of 70 and over, adult: CODE(S): E66.01 - Morbid (severe) obesity due to excess calories; Z68.45 - Body mass index [BMI] 70 or greater, adult (2) Pressure ulcer of upper thigh: CODE(S): L89.209 - Pressure ulcer of unspecified hip, unspecified stage PLAN: Plan For wound dressings, continue to apply lightly moistened Promogran to the wound bed and cover with silicone border foam dressing. Change daily or more often as needed to keep clean and dry. With dressing changes, cleanse the area with antibacterial soap and water and pat to dry. Okay to shower and allow soap and water to rinse over the area. For care of the periwound skin, I continue to apply Eucerin to the bilateral posterior thighs and buttocks. Allow the lotion to soak in. Then apply the barrier cream to the buttocks/intertriginous areas to protect from chronic moisture associated with skin folds and incontinence. She is in the process of receiving a new bed. Once she receives the bed, we can try to obtain a compatible low air loss mattress overlay. Continue to change positions, stand, and/or walk every hour throughout the day. Of course, we discussed the importance of continued weight loss and she is encouraged to continue with this effort. We discussed available nutritional supplements such as Jonah/Glucerna. She is encouraged to continue with good glycemic control. She will return in 2 weeks or sooner as needed.
[2023-06-14 13:30] VITALS: BP 123/65; PULSE 77; RESP 18; TEMP 36.9; BMI 77.3
--- NOTE | 2023-06-14 16:21 | PCM.WC.PN ---
History of Present Illness Date of Service: 06/14/23 Chief Complaint: Pressure ulceration of the left proximal posterior thigh History of Wound: Joselyn Khan is a 63 y/o female who presents today for evaluation and management of a left posterior thigh ulceration. She reports that she has had ulcerations to her posterior legs and buttocks recurrently over the last 4 years. She is not sure how long the current ulceration has been there, maybe a few weeks. She is not able to visualize the area but reports it always feels very tender and uncomfortable. She states that her sister (who also acts as her home health aid) tells her the area is persistently red/purple and with areas of thickened flaky skin. She has been applying a cream provided by a different wound center in the past but isn't sure of the name. She is morbidly obese with a BMI of 77.4. She also has significant osteoarthritis of her knees and hips. This combination severely limits her mobility. She does ambulate short distances at home with a rollator. Outside of the home she utilizes an automated wheelchair. She has a hospital bed at home but is not able to sleep in it because she cannot lift her legs into the bed. She spends most of her time and sleeps in a recliner. She has an offloading pad for her wheelchair but cannot use it because the added height makes it difficult for her to get into the wheelchair. She does not have an offloading pad for the recliner. She reports she does try to get up and at least stand every hour or so, she really isn't able to change positions. She does also struggle with urinary incontinence. She is not able to utilize depends due to discomfort and/or size. She does her best to keep the area clean and dry but does have difficulty with this at times. She has not been using a barrier cream because she was worried this was drying out her skin and causing the flakiness. She is diabetic with pretty good control, last A1c around 7 by report. She does not smoke. She does not have any known autoimmune conditions. She does not take any blood thinners. She has lost 40 pounds recently. Subjective Subjective Her sister changes her wound dressings and patient reports she has not mentioned any concerns in this regard. She does have significant discomfort throughout her buttock/thighs in the areas of pressure injury as has been her baseline for a long time. She denies any concerns for infection. No N/V, F/C, increased drainage has been noted. She has not yet received a new hospital bed which is low enough for her to lift her legs into. She has been having communication difficulties with [facility] who are coordinating this. She does continue to work with her PCP on weight loss efforts, she reports they are trying to get a weight loss medication approved such as Ozempic or similar given her comorbid diabetes. Objective Data Objective Data Vital Signs: Vital Signs Temp Pulse Resp BP O2 Del Method 98.4 F 77 18 123/65 H Room Air 06/14/23 13:30 06/14/23 13:30 06/14/23 13:30 06/14/23 13:30 06/14/23 13:30 Oxygen Delivery Method Room Air Weight: 383 lb Body Mass Index (BMI) 77.3 Charges/Coding Procedures Integumentary 111xxx-113xx: [id number] Shanna subq tissue 20 sq cm/< Physical Exam Const alert, oriented x3 and no apparent distress Nutritional Appearance: morbidly obese HEENT normocephalic, hearing grossly normal bilaterally, external ears normal and external nose normal Eyes EOMs intact bilaterally General Eye: normal appearance of both eyes Neck General: normal visual inspection and trachea midline Resp normal respiratory effort, normal air movement, no retractions and no use of accessory muscles Effort and Inspection: able to speak in complete sentences Extremity General Extremity: edema bilateral (mild) Skin Wounds: wounds noted Wound Narrative: She has persistent red/purple discoloration diffusely across her bilateral posterior thighs and buttocks consistent with chronic pressure injury. L posterior proximal thigh wound has decreased in size, measurements as noted in debridement section. R posterior thigh ulceration with mild slough, well-bleeding base. Skin on the bilateral posterior thighs/buttock is overall improved with much less flaking. There is no warmth, foul odor, focal swelling, significant drainage. Neuro oriented x3, CN's II-XII intact bilaterally, moves all extremities and no focal motor deficits Speech: speech normal Debridement Note Debridement Note Wound debrided: L posterior thigh Laterality: Left Wound Grade/Stage: Stage 2 Type of Debridement: Excisional debridement Anesthesia Used: 5% Lidocaine Gel Depth: Down to and including healthy tissue Percentage of wound debrided: 100 Instrument Used: 3mm curette Tissue Removed: devitalized tissue Severity: Limited To Skin Breakdown Amount of bleeding with debridement: Mild Bleeding Controlled with: Pressure Patient tolerated procedure: Patient tolerated procedure well Post-Debridement Measurements and Additional Note: Post-Debridement Measurements/Treatment WC - Nurse 1 - General Ulcer Assessment Start: 05/31/23 13:22 Freq: Status: Active Protocol: [email or web address] Activity Type Activity Date Activity User E-sign Co-sign Detail Recorded Client Recorded Date Recorded By Document 05/31/23 13:23 DL Desktop 05/31/23 13:35 DL Document 06/14/23 13:30 KW Desktop 06/14/23 13:40 KW 05/31/23 06/14/23 13:23 13:30 WC - Today's Visit Information Type of service Follow-up Visit Follow-up Visit (Physician/CARBIDE OPERATOR (Physician/CARBIDE OPERATOR ) ) Arrival Mode Wheelchair Wheelchair Transfer Assistance None Patient Identification Verified (Name & Yes Yes ) Patient Requires Transmission-Based No Precautions Height and Weight Body Mass Index (BMI) 77.3 77.3 BMI Classification Obese Obese Vital Signs Temperature (97.8 F-99.1 F) 97.3 F L 98.4 F Temperature Source Temporal Oral Pulse Rate (60-100) 72 77 Pulse Location Monitor Monitor Respiratory Rate (12-18) 22 H 18 Respiratory rate source Observation Observation Oxygen Delivery Method Room Air Blood Pressure (90/60-120/80) 124/54 H 123/65 H Blood Pressure Mean (mm Hg) 77 84 Source Monitor Monitor Position Semi-Fowlers Blood Pressure Location Right Forearm History Since Last Visit- (Skip if this is Patient's initial visit) Have you changed medications since your No No last visit? Any new allergies or adverse reactions No No Had a fall/change in ADL's that may No No increase risk of falls Signs or symptoms of abuse and/or No No neglect since last visit Have you been in the hospital since your No No last visit? Has dressing in place as prescribed Yes Yes Has compression in place as prescribed N/A N/A Has offloadiing in place as prescribed Yes N/A Experienced any changes in pain level or No No management Left Footwear Regular Shoe Right Footwear Regular Shoe Pain Scale: 0-10 Numeric Is Patient Pain Free? Yes Yes LT POST THIGH -Description Throbbing, Burning -Intensity 6 -Alleviating Factors/Interventions Medication - Nurse 1 - General Ulcer Measurement Start: 05/31/23 13:22 Freq: Status: Active Protocol: Activity Type Activity Date Activity User E-sign Co-sign Detail Recorded Client Recorded Date Recorded By Document 05/31/23 13:23 DL Desktop 05/31/23 13:35 DL Document 06/14/23 13:30 KW Desktop 06/14/23 13:40 KW 05/31/23 06/14/23 13:23 13:30 Wound Center Nurse 1 2. left post upper leg -Current Size (cm) - Length 0.1 0.8 -Current Size (cm) - Width 0.1 0.6 -Current Size (cm) - Depth 0.1 0.2 -Total Square Cm 0.01 0.48 -Exudate Amt None Present Small -Exudate Type Serosanguineous -Wound Margin Indistinct, Non Distinct, -Visible Outline Attached -Granulation Amt Small (1-33%) Medium (34-66%) -Granulation Quality [place] -Necrosis Amt None Present (0 %) -Structure Exposed N/A -Texture (Yoon-wound Skin Appearance) Localized Edema Assessed ,Scarring -Moisture (Yoon-wound Skin Appearance) No Abnormality Assessed -Color (Yoon-wound Skin Appearance) Ecchymosis Assessed, Hemosiderin Staining -Temperature (Yoon-wound Skin No Abnormality Appearance) (Pt Warm) -Tenderness on Palpation (Yoon-wound No Skin Appearance) -Ulcer Cleansing Soap and Water Rinsed/ Irrigated with Saline -Foul Odor after Cleansing Yes, Due to Product Use -Anesthetic Used 5% Lidocaine 5% Lidocaine Gel Gel WC - Nurse 2 - General Ulcer CM Notes Start: 05/31/23 13:22 Freq: Status: Active Protocol: Activity Type Activity Date Activity User E-sign Co-sign Detail Recorded Client Recorded Date Recorded By Document 05/31/23 14:16 Desktop 05/31/23 14:17 Document 06/14/23 14:38 Desktop 06/14/23 14:44 05/31/23 06/14/23 14:16 14:38 Wound Center Nurse 2 2. left post upper leg -Time 14:16 14:41 -Correct Patient Yes Yes -Correct Side, Site, Position Yes Yes -Correct Procedure Yes Yes -Procedure Performed Yes Yes -Type of Procedure Debridement Debridement -Clinical Debridement Subcutaneous Subcutaneous -Tissue Removed Subcutaneous Subcutaneous -Post Debridement (cm) - Length 1.5 0.6 -Post Debridement (cm) - Width 0.5 0.7 -Post Debridement (cm) - Depth 0.1 0.3 -Total Square (Post) (cm) 0.75 0.42 -Area of Debridement (cm) - Length 1.5 0.6 -Area of Debridement (cm) - Width 0.5 0.7 -Total Square (Area) (cm) 0.75 0.42 -Tunneling No No -Undermining/Tunneling No No -Circular Undermining No No -Wound/Ulcer Outcome Not Healed Not Healed -Ulcer Cleansing Rinsed/ Rinsed/ Irrigated with Irrigated with Saline Saline -Foul Odor after Cleansing No No -Bioengineered Tissue No No -Bleeding Controlled with Pressure Pressure -Treatment Response Procedure Procedure Tolerated Well Tolerated Well -Debridement - Subq, 1st 20sq cm Yes No #1 Right Upper Post Thigh -Time 14:42 -Correct Patient Yes -Correct Side, Site, Position Yes -Correct Procedure Yes -Procedure Performed Yes -Type of Procedure Debridement -Clinical Debridement Subcutaneous -Tissue Removed Subcutaneous -Post Debridement (cm) - Length 0.3 -Post Debridement (cm) - Width 0.2 -Post Debridement (cm) - Depth 0.2 -Total Square (Post) (cm) 0.06 -Area of Debridement (cm) - Length 0.3 -Area of Debridement (cm) - Width 0.2 -Total Square (Area) (cm) 0.06 -Tunneling No -Undermining/Tunneling No -Circular Undermining No -Wound/Ulcer Outcome Not Healed -Ulcer Cleansing Rinsed/ Irrigated with Saline -Foul Odor after Cleansing No -Bioengineered Tissue No -Bleeding Controlled with Pressure -Treatment Response Procedure Tolerated Well -Pressure Reduction Wheelchair cushion, Specialty bed -Debridement - Subq, 1st 20sq cm Yes Pain Scale: 0-10 Numeric Is Patient Pain Free? Yes Yes WC - Nurse 3 - General Ulcer D/C NN Start: 05/31/23 13:22 Freq: Status: Active Protocol: Activity Type Activity Date Activity User E-sign Co-sign Detail Recorded Client Recorded Date Recorded By Document 05/31/23 14:17 GM Desktop 05/31/23 14:18 GM Document 06/14/23 14:46 [id number] 06/14/23 14:49 KW 05/31/23 06/14/23 14:17 14:46 Wound Care Center Nurse 3 2. left post upper leg -Ulcer Cleansing Not Cleansed -Foul Odor after Cleansing No -Primary Dressing Applied Mepilex Border, Promogran Promogran -Primary Dressing Covered/Secured with Dry Gauze, Secured with Tape -Mepilex Border 2 -Promogran 1 1 #1 Right Upper Post Thigh -Primary Dressing Covered/Secured with Dry Gauze, Secured with Tape Pain Scale: 0-10 Numeric Is Patient Pain Free? Yes Yes WC - Visit Discharge Discharge Condition Stable Stable Ambulatory Status Wheelchair Wheelchair Transportation Private Auto Medication Reconcilliation completed & No provided to patient/care provider Clinical Summary of Care Provided Yes Yes Additional Wound Wound debrided: R posterior thigh Laterality: Right Wound Grade/Stage: Stage 2 Type of Debridement: Excisional debridement Depth: Down to and including healthy tissue Percentage of wound debrided: 100 Instrument Used: 3mm curette Tissue Removed: devitalized tissue Severity: Limited To Skin Breakdown Amount of bleeding with debridement: Mild Bleeding Controlled with: Pressure Patient tolerated procedure: Patient tolerated procedure well Assessment/Plan Assessment/Plan (1) Morbid obesity with BMI of 70 and over, adult: CODE(S): E66.01 - Morbid (severe) obesity due to excess calories; Z68.45 - Body mass index [BMI] 70 or greater, adult (2) Pressure ulcer of upper thigh: CODE(S): L89.209 - Pressure ulcer of unspecified hip, unspecified stage PLAN: Plan For wound dressings, continue to apply lightly moistened Promogran to the wound bed and cover with silicone border foam dressing. Change daily or more often as needed to keep clean and dry. With dressing changes, cleanse the area with antibacterial soap and water and pat to dry. Okay to shower and allow soap and water to rinse over the area. For care of the periwound skin, continue to apply Eucerin to the bilateral posterior thighs and buttocks. Allow the lotion to soak in. Then apply the barrier cream to the buttocks/intertriginous areas to protect from chronic moisture associated with skin folds and incontinence. Nurse field case manager is going to try to help with coordination of new hospital bed. Insurance did deny the one we ordered as she has received her current bed within the last 2 years. However, she states she can get a new lower bed through [facility]. Continue to change positions, stand, and/or walk every hour throughout the day. We again discussed the importance of continued weight loss and she is encouraged to continue with this effort. She is encouraged to continue with Jonah supplementation. She is encouraged to continue with good glycemic control. She will return in 2 weeks or sooner as needed.
== END 2023-06-19 23:59 | disposition home or self-care (01) ==
LOC: WC 13:30
PROVIDERS: PCP Family Medicine; Referring Provider Clinical Nurse Specialist Adult Health; Visit Provider Physician Assistant
DX: L89.892 Pressure ulcer of other site, stage 2 (principal); Z68.45 Body mass index [BMI] 70 or greater, adult; E66.01 Morbid (severe) obesity due to excess calories; E11.9 Type 2 diabetes mellitus without complications; R32 Unspecified urinary incontinence; M17.0 Bilateral primary osteoarthritis of knee; M16.0 Bilateral primary osteoarthritis of hip
CPT/HCPCS: 11042

== ENCOUNTER 2024-01-14 10:30 | Outpatient (RCR) | payer MEDICARE, MEDICAID, SELFPAY ==
[2023-12-24 08:15] VITALS: BP 122/54; PULSE 68; RESP 18; TEMP 36.3
--- NOTE | 2023-12-24 12:31 | PCM.WC.HP ---
History of Present Illness Date of Service: 12/24/23 Chief Complaint: Pressure ulceration of the left proximal posterior thigh History of Wound: Joselyn Khan is a 63 y/o female who presents today for evaluation and management of bilateral posterior thigh ulcerations. She reports that she has had ulcerations to her posterior legs and buttocks recurrently over the last 4 years. She is not sure how long the current ulceration has been there. They come and go. She has seen DEBRA Rios here in the past, with her last appointment in May 2023. She states that they can be very painful and will bleed on occasion. She does place a barrier cream on the yoon wound. She is morbidly obese. She also has significant osteoarthritis of her knees and hips. This combination severely limits her mobility. She does ambulate short distances at home with a rollator. She tends to sit in her wheelchair or her recliner for long periods of time. She uses a wheelchair when she goes outside her home. She has home health who assists her with her dressing changes. She is diabetic with an A1c around 6.8 by report. She does not smoke. She does not have any known autoimmune conditions. She does not take any blood thinners. Progress of Wound: Bilateral upper thigh ulcers that have a purple/bruised hue and bleed easily, even without debridement. They are caused by pressure. The yoon wound is very excoriated and friable. [facility] Medical History COVID-19 Vitamin D deficiency Hyperparathyroidism Immobility Peripheral neuropathy Mixed hyperlipidemia COPD (chronic obstructive pulmonary disease) History of DVT (deep vein thrombosis) SVT (supraventricular tachycardia) Essential hypertension JEREMÍAS treated with BiPAP Pulmonary hypertension Exertional dyspnea Chronic back pain Diabetes mellitus, type II Heart failure Anxiety and depression Sepsis Lumbosacral neuritis Esophageal reflux Morbid obesity Home Medications ?Medication ?Instructions ?Recorded ?Last Taken ?Type duloxetine 60 mg capsule,delayed 60 mg PO DAILY depression 12/02/14 03/02/22 History release aripiprazole 10 mg tablet 10 mg PO QHS Depression 10/21/17 03/01/22 History pravastatin 20 mg tablet 20 mg PO QHS cholesterol 04/09/19 03/01/22 History famotidine 40 mg tablet 40 mg PO DAILY stomach 11/08/19 03/02/22 History insulin glargine 100 unit/mL (3 35 unit SQ DAILY blood sugar 11/08/19 03/02/22 History mL) subcutaneous pen hydrocodone-acetaminophen 5-325mg 1 tab PO BID PRN Pain 06/29/20 03/01/22 History 5mg-325mg potassium chloride 10 mEq 10 meq PO DAILY supplement 06/29/20 03/02/22 History capsule,extended release acetaminophen 650 mg 650 mg PO TID PRN Pain 09/14/20 03/02/22 History tablet,extended release spironolactone 50 mg tablet 25 mg PO DAILY fluid 09/14/20 03/02/22 History trazodone 100 mg tablet 100 mg PO QHS SLEEP 09/14/20 03/01/22 History cholecalciferol (vitamin D3) 125 125 mcg PO DAILY 03/02/22 03/02/22 History mcg (5,000 unit) tablet (Vitamin D3) furosemide 80 mg tablet 80 mg PO DAILY FLUID 03/02/22 03/02/22 History gabapentin 300 mg capsule 300 mg PO Q12H PAIN 03/02/22 03/01/22 History ibuprofen 200 mg tablet 800 mg PO Q8H PRN Fever 03/02/22 03/02/22 07:45 History albuterol sulfate 90 mcg/actuation 2 inh inhalation Q4H PRN shortness 05/17/23 Unknown History aerosol inhaler of breath or wheezing ascorbic acid (vitamin C) 1,500 mg 1,500 mg PO DAILY 05/17/23 Unknown History tablet,extended release glucosamine 750 [id number] 1 tab PO BID 05/17/23 Unknown History no1 644 mg-C 30 mg-galdino 1 mg tablet (Osteo Bi-Flex Triple Strength) hydroxyzine pamoate 25 mg capsule 25 mg PO Q8H PRN anxiety 05/17/23 Unknown History potassium chloride 8 mEq 8 meq PO DAILY 05/17/23 Unknown History capsule,extended release ropinirole 0.25 mg tablet 0.25 mg PO QHS 05/17/23 Unknown History tizanidine 4 mg capsule 4 mg PO TID PRN muscle spasticity 05/17/23 Unknown History Allergy/AdvReac Type Severity Reaction Status Date / Time vancomycin Allergy Rash Verified 12/24/23 08:22 atorvastatin AdvReac Severe myalgias Verified 12/24/23 08:22 amlodipine AdvReac Unknown Verified 12/24/23 08:22 atenolol AdvReac Unknown Verified 12/24/23 08:22 bupropion HCl (From AdvReac Unknown Verified 12/24/23 08:22 Wellbutrin) fluoxetine HCl (From Prozac) AdvReac Unknown Verified 12/24/23 08:22 meloxicam (From Mobic) AdvReac Unknown Verified 12/24/23 08:22 metoprolol AdvReac Unknown Verified 12/24/23 08:22 pregabalin (From Lyrica) AdvReac Unknown Verified 12/24/23 08:22 quetiapine fumarate (From AdvReac Unknown Verified 12/24/23 08:22 Seroquel) quinapril HCl (From Accupril) AdvReac Unknown Verified 12/24/23 08:22 risperidone AdvReac Unknown Verified 12/24/23 08:22 rofecoxib (From Vioxx) AdvReac Unknown Verified 12/24/23 08:22 sitagliptin phosphate (From AdvReac Unknown Verified 12/24/23 08:22 Januvia) venlafaxine HCl (From AdvReac Unknown Verified 12/24/23 08:22 Effexor) Family History (Reviewed 12/30/23 @ 19:48 by Arpita Moore REGISTERED PUBLIC SURVEYOR, REGISTERED PUBLIC SURVEYOR-C) Mother Hypertension CVA (cerebral vascular accident) Diabetes Heart disease Father Hypertension COPD (chronic obstructive pulmonary disease) Sister Hypertension Sister Hypertension Diabetes Brother Hypertension Diabetes Brother Hypertension Diabetes Brother Hypertension CAD (coronary artery disease) History of coronary artery bypass surgery, Onset Age: 48 Diabetes Surgical History (Reviewed 12/30/23 @ 19:48 by Arpita Moore REGISTERED PUBLIC SURVEYOR, REGISTERED PUBLIC SURVEYOR-C) History of laparoscopic cholecystectomy History of hernia repair History of left heart catheterization (LHC) (~05/23/12) Social History (Reviewed 12/30/23 @ 19:48 by Arpita Moore REGISTERED PUBLIC SURVEYOR, REGISTERED PUBLIC SURVEYOR-C) household members: none Smoking Status: Former smoker alcohol intake: never substance use type: does not use ROS Constitutional Constitutional: Reports fatigue; Denies chills or fever(s) Eyes Eyes: Reports none ENT HEENT: Reports none Cardiovascular Cardiovascular: Denies chest pain or dyspnea at rest Respiratory/Chest Respiratory/Chest: Reports systems reviewed and no addt'l complaints, except as documented Gastrointestinal Gastrointestinal: Reports systems reviewed and no addt'l complaints, except as documented Genitourinary Genitourinary: Reports dribbling Musculoskeletal Musculoskeletal: Reports as per HPI Integumentary Integumentary: Reports as per HPI and skin ulcer Neurologic Neurologic: Reports systems reviewed and no addt'l complaints, except as documented Psychiatric Psychiatric: Reports systems reviewed and no addt'l complaints, except as documented Endocrine Endocrinology: Reports as per HPI Hematologic/Lymphatic Hematologic/Lymphatic: Reports none Allergic/Immunologic Allergic/Immunologic: Reports as per HPI Vital Signs Vital Signs Vital Signs: 12/24/23 08:15 Temperature 97.3 F L Temperature Source Temporal Pulse Rate 68 Respiratory Rate 18 Blood Pressure 122/54 H Blood Pressure Mean 76 Blood Pressure Source Monitor Blood Pressure Position Sitting Blood Pressure Location Left Arm Oxygen Delivery Method Room Air Physical Exam Const alert and oriented x3 General Appearance: cooperative HEENT normocephalic Head and Scalp: atraumatic Eyes General Eye: normal appearance of both eyes Neck full ROM Resp normal respiratory effort, normal air movement and clear to auscultation bilaterally Effort and Inspection: able to speak in complete sentences Cardio regular rate and regular rhythm Back/Spine normal to inspection Extremity normal capillary refill General Extremity: edema bilateral lower extremity Skin Wound Narrative: Bilateral ulcers on posterior proximal thighs. Yoon wound is very purple from pressure and excoriated. Neuro oriented x3 Psych mental status grossly normal and cooperative Appearance: grossly normal Debridement Note Debridement Note Wound debrided: Posterior thigh ulcer Laterality: Right Wound Grade/Stage: Stage II Type of Debridement: Excisional debridement Anesthesia Used: 5% Lidocaine Gel Depth: Down to and including healthy tissue and in the subcutaneous layer Percentage of wound debrided: 100 Instrument Used: 5mm curette Tissue Removed: Non viable tissue and slough Severity: Limited To Skin Breakdown Amount of bleeding with debridement: Mild Bleeding Controlled with: Pressure and Compression and gauze Patient tolerated procedure: Patient tolerated procedure well Post-Debridement Measurements and Additional Note: Post-Debridement Measurements/Treatment WC - Nurse 1 - General Ulcer Assessment Start: 12/24/23 08:07 Freq: Status: Active Protocol: ANNMARIE Activity Type Activity Date Activity User E-sign Co-sign Detail Recorded Client Recorded Date Recorded By Document 12/24/23 08:15 DEREK [id number] 12/24/23 08:20 KW 12/24/23 08:15 - Today's Visit Information Type of service Initial Visit Arrival Mode Wheelchair Patient Identification Verified (Name & Yes ) Height and Weight Height 4 ft 11 in Vital Signs Temperature (97.8 F-99.1 F) 97.3 F L Temperature Source Temporal Pulse Rate (60-100) 68 Pulse Location Monitor Respiratory Rate (12-18) 18 Respiratory rate source Observation Oxygen Delivery Method Room Air Blood Pressure (90/60-120/80) 122/54 H Blood Pressure Mean 76 Source Monitor Position Sitting Blood Pressure Location Left Arm History Since Last Visit- (Skip if this is Patient's initial visit) Left Footwear Regular Shoe Right Footwear Regular Shoe Pain Scale: 0-10 Numeric Is Patient Pain Free? Yes - Nurse 1 - General Ulcer Measurement Start: 12/24/23 08:07 Freq: Status: Active Protocol: Activity Type Activity Date Activity User E-sign Co-sign Detail Recorded Client Recorded Date Recorded By Document 12/24/23 08:15 [id number] 12/24/23 08:20 12/24/23 08:15 Wound Center Nurse 1 #4 LT UPPER POST THIGH CLUSTER -Current Size (cm) - Length 2 -Current Size (cm) - Width 0.2 -Current Size (cm) - Depth 0.1 -Total Square Cm 0.4 -Date of Last Picture (Recall this 12/24/23 field) -Exudate Amt Small -Exudate Type Serosanguineous -Wound Margin Distinct, Outline Attached -Granulation Amt Medium (34-66%) -Granulation Quality [place] -Necrosis Amt Medium (34-66%) -Necrotic Tissue Type Adherent Slough -Texture (Yoon-wound Skin Appearance) Assessed -Moisture (Yoon-wound Skin Appearance) Assessed -Color (Yoon-wound Skin Appearance) Assessed, Ecchymosis -Temperature (Yoon-wound Skin No Abnormality Appearance) (Pt Warm) -Tenderness on Palpation (Yoon-wound No Skin Appearance) -Ulcer Cleansing Rinsed/ Irrigated with Saline -Foul Odor after Cleansing No -Anesthetic Used 5% Lidocaine Gel #3 RT POST UPPER THIGH -Current Size (cm) - Length 0.7 -Current Size (cm) - Width 0.7 -Current Size (cm) - Depth 0.1 -Total Square Cm 0.49 -Date of Last Picture (Recall this 12/24/23 field) -Exudate Amt Small -Exudate Type Serosanguineous -Wound Margin Distinct, Outline Attached -Granulation Amt Medium (34-66%) -Granulation Quality [place] -Necrosis Amt Medium (34-66%) -Necrotic Tissue Type Adherent Slough -Texture (Yoon-wound Skin Appearance) Assessed -Moisture (Yoon-wound Skin Appearance) Assessed -Color (Yoon-wound Skin Appearance) Assessed, Ecchymosis -Temperature (Yoon-wound Skin No Abnormality Appearance) (Pt Warm) -Tenderness on Palpation (Yoon-wound No Skin Appearance) -Ulcer Cleansing Rinsed/ Irrigated with Saline -Foul Odor after Cleansing No -Anesthetic Used 5% Lidocaine Gel WC - Nurse 2 - General Ulcer CM Notes Start: 12/24/23 08:07 Freq: Status: Active Protocol: Activity Type Activity Date Activity User E-sign Co-sign Detail Recorded Client Recorded Date Recorded By Document 12/24/23 08:53 JEREMIAS [id number] 12/24/23 09:02 JEREMIAS 12/24/23 08:53 Wound Center Nurse 2 #4 LT UPPER POST THIGH CLUSTER -Time 09:00 -Correct Patient Yes -Correct Side, Site, Position Yes -Correct Procedure Yes -Procedure Performed Yes -Type of Procedure Debridement -Clinical Debridement Subcutaneous -Tissue Removed Subcutaneous -Post Debridement (cm) - Length 8.0 -Post Debridement (cm) - Width 0.5 -Post Debridement (cm) - Depth 0.1 -Total Square (Post) (cm) 4.00 -Area of Debridement (cm) - Length 8.0 -Area of Debridement (cm) - Width 0.5 -Total Square (Area) (cm) 4.00 -Tunneling No -Undermining/Tunneling No -Circular Undermining No -Wound/Ulcer Outcome Not Healed -Ulcer Cleansing Rinsed/ Irrigated with Saline -Foul Odor after Cleansing No -Bioengineered Tissue No -Bleeding Controlled with Pressure -Treatment Response Procedure Tolerated Well -Offloading No -Pressure Reduction Wheelchair cushion -Debridement - Subq, 1st 20sq cm No #3 RT POST UPPER THIGH -Time 09:00 -Correct Patient Yes -Correct Side, Site, Position Yes -Correct Procedure Yes -Procedure Performed Yes -Type of Procedure Debridement -Clinical Debridement Subcutaneous -Tissue Removed Subcutaneous -Post Debridement (cm) - Length 0.6 -Post Debridement (cm) - Width 0.6 -Post Debridement (cm) - Depth 0.2 -Total Square (Post) (cm) 0.36 -Area of Debridement (cm) - Length 0.6 -Area of Debridement (cm) - Width 0.6 -Total Square (Area) (cm) 0.36 -Tunneling No -Undermining/Tunneling No -Circular Undermining No -Wound/Ulcer Outcome Not Healed -Ulcer Cleansing Rinsed/ Irrigated with Saline -Foul Odor after Cleansing No -Bioengineered Tissue No -Bleeding Controlled with Pressure -Treatment Response Procedure Tolerated Well -Offloading No -Debridement - Subq, 1st 20sq cm Yes Pain Scale: 0-10 Numeric Is Patient Pain Free? Yes - Nurse 3 - General Ulcer D/C NN Start: 12/24/23 08:07 Freq: Status: Active Protocol: Activity Type Activity Date Activity User E-sign Co-sign Detail Recorded Client Recorded Date Recorded By Document 12/24/23 09:14 [facility] [id number] 12/24/23 09:15 [facility] 12/24/23 09:14 Wound Care Center Nurse 3 #4 LT UPPER POST THIGH CLUSTER -Ulcer Cleansing Rinsed/ Irrigated with Saline -Foul Odor after Cleansing No -Primary Dressing Applied C Hydrogel ($), Mepilex Border -Primary Dressing Covered/Secured with Dry Gauze -Mepilex Border 1 #3 RT POST UPPER THIGH -Ulcer Cleansing Rinsed/ Irrigated with Saline -Foul Odor after Cleansing No -Primary Dressing Applied Mepilex Border -Other Dressing HYDROGEL -Primary Dressing Covered/Secured with Dry Gauze -Mepilex Border 1 Treatment Response Procedure Tolerated Well Pain Scale: 0-10 Numeric Is Patient Pain Free? Yes - Visit Discharge Discharge Condition Stable Ambulatory Status Wheelchair Transportation [facility] Type Home Health Additional Wound Wound debrided: Posterior thigh ulcer Laterality: Left Wound Grade/Stage: Stage II Type of Debridement: Excisional debridement Anesthesia Used: 5% Lidocaine Gel Depth: Down to and including healthy tissue and in the subcutaneous layer Percentage of wound debrided: 100 Instrument Used: 5mm curette Tissue Removed: Non viable tissue and slough Severity: Limited To Skin Breakdown Amount of bleeding with debridement: Mild Bleeding Controlled with: Pressure and Compression and gauze Patient tolerated procedure: Patient tolerated procedure well Charges/Coding Visit Charges Office Visits / Consults: [id number] OV L4 Est 30min (25 modifier) Procedures Integumentary [id number]: [id number] Shanna subq tissue 20 sq cm/< Assessment/Plan Assessment/Plan (1) Pressure ulcer of upper thigh: CODE(S): L89.209 - Pressure ulcer of unspecified hip, unspecified stage QUALIFIERS: Pressure injury stage: stage 2 PLAN: Bilateral posterior thigh ulcers (2) Morbid obesity with BMI of 70 and over, adult: CODE(S): E66.01 - Morbid (severe) obesity due to excess calories; Z68.45 - Body mass index [BMI] 70 or greater, adult (3) Immobility: CODE(S): Z74.09 - Other reduced mobility (4) Diabetes mellitus, type II: CODE(S): E11.9 - Type 2 diabetes mellitus without complications QUALIFIERS: Diabetes mellitus prison insulin use: with terminal clerk use Diabetes mellitus complication status: with unspecified complications Qualified Code(s): E11.8 - Type 2 diabetes mellitus with unspecified complications; Z79.4 - custodial (current) use of insulin PLAN: Plan Patient evaluated at the wound healing center. Wound care will be Collagen hydrogel covered with [place] SAP daily and as needed. She will wash these areas with soap and water and pat dry at the time of the dressing changes. She may place a barrier cream to the yoon wound after the dressing is in place. Stressed importance of not sitting in one place for long periods of time. She needs to off load ideally every 20 - 30 minutes. She has a difficult time shifting or changing positions when sitting due to her size. She does have a hospital bed. She sits for long periods of time without moving. She will follow up one week. Greater than 30 minutes spent assessing patient and educating patient, reviewing old records, documenting.
--- NOTE | 2023-12-26 13:04 | WC ---
PHOTO 12/24/23 RIGHT POSTERIOR THIGH
--- NOTE | 2023-12-26 13:08 | WC ---
PHOTO 12/24/23 LEFT POSTERIOR THIGH CLUSTER
[2023-12-31 09:48] VITALS: BP 140/69; PULSE 72; RESP 18; TEMP 36
--- NOTE | 2023-12-31 13:11 | PN.PCM_ITS ---
History of Present Illness Date of Service: 12/31/23 Chief Complaint: Pressure ulceration of the left proximal posterior thigh History of Wound: Joselyn Khan is a 63 y/o female who presents today for evaluation and management of bilateral posterior thigh ulcerations. She reports that she has had ulcerations to her posterior legs and buttocks recurrently over the last 4 years. She is not sure how long the current ulceration has been there. They come and go. She has seen DEBRA Rios here in the past, with her last appointment in May 2023. She states that they can be very painful and will bleed on occasion. She does place a barrier cream on the yoon wound. She is morbidly obese. She also has significant osteoarthritis of her knees and hips. This combination severely limits her mobility. She does ambulate short distances at home with a rollator. She tends to sit in her wheelchair or her recliner for long periods of time. She uses a wheelchair when she goes outside her home. She has home health who assists her with her dressing changes. She is diabetic with an A1c around 6.8 by report. She does not smoke. She does not have any known autoimmune conditions. She does not take any blood thinners. Progress of Wound: Bilateral upper thigh ulcers that have a purple/bruised hue and bleed easily. They are stable. She states she has been trying to off load as much as possible. She has a hospital bed but not a specialty mattress. Objective Data Objective Data Vital Signs: Vital Signs Temp Pulse Resp BP O2 Del Method 96.8 F L 72 18 140/69 H Room Air 12/31/23 09:48 12/31/23 09:48 12/31/23 09:48 12/31/23 09:48 12/31/23 09:48 Oxygen Delivery Method Room Air Charges/Coding Procedures Integumentary [id number]: [id number] Shanna subq tissue 20 sq cm/< Debridement Note Debridement Note Wound debrided: Posterior thigh ulcer Laterality: Right Wound Grade/Stage: Stage II Type of Debridement: Excisional debridement Anesthesia Used: 5% Lidocaine Gel Depth: Down to and including healthy tissue and in the subcutaneous layer Percentage of wound debrided: 100 Instrument Used: 3mm curette Tissue Removed: Non viable tissue and slough Severity: Limited To Skin Breakdown Amount of bleeding with debridement: Mild Bleeding Controlled with: Pressure, Compression and gauze and Silver Nitrate Patient tolerated procedure: Patient tolerated procedure well Post-Debridement Measurements and Additional Note: Post-Debridement Measurements/Treatment - Nurse 1 - General Ulcer Assessment Start: 12/24/23 08:07 Freq: Status: Active Protocol: ANNMARIE Activity Type Activity Date Activity User E-sign Co-sign Detail Recorded Client Recorded Date Recorded By Document 12/24/23 08:15 KW [id number] 12/24/23 08:20 KW Document 12/31/23 09:48 KW [id number] 12/31/23 09:59 KW 12/24/23 12/31/23 08:15 09:48 WC - Today's Visit Information Type of service Initial Visit Follow-up Visit (Physician/[facility] ) Arrival Mode Wheelchair Wheelchair Patient Identification Verified (Name & Yes Yes ) Height and Weight Height 4 ft 11 in Vital Signs Temperature (97.8 F-99.1 F) 97.3 F L 96.8 F L Temperature Source Temporal Temporal Pulse Rate (60-100) 68 72 Pulse Location Monitor Monitor Respiratory Rate (12-18) 18 18 Respiratory rate source Observation Observation Oxygen Delivery Method Room Air Room Air Blood Pressure (90/60-120/80) 122/54 H 140/69 H Blood Pressure Mean (mm Hg) 76 92 Source Monitor Monitor Position Sitting Sitting Blood Pressure Location Left Arm Right Forearm History Since Last Visit- (Skip if this is Patient's initial visit) Have you changed medications since your No last visit? Any new allergies or adverse reactions No Had a fall/change in ADL's that may No increase risk of falls Signs or symptoms of abuse and/or No neglect since last visit Have you been in the hospital since your No last visit? Has dressing in place as prescribed Yes Has compression in place as prescribed N/A Has offloadiing in place as prescribed N/A Experienced any changes in pain level or No management Left Footwear Regular Shoe Regular Shoe Right Footwear Regular Shoe Regular Shoe Pain Scale: 0-10 Numeric Is Patient Pain Free? Yes Yes Brennan Nurse 1 - General Ulcer Measurement Start: 12/24/23 08:07 Freq: Status: Active Protocol: Activity Type Activity Date Activity User E-sign Co-sign Detail Recorded Client Recorded Date Recorded By Document 12/24/23 08:15 KW [id number] 12/24/23 08:20 KW Document 12/31/23 09:48 KW [id number] 12/31/23 09:59 KW 12/24/23 12/31/23 08:15 09:48 Wound Center Nurse 1 #4 LT UPPER POST THIGH CLUSTER -Current Size (cm) - Length 2 0.5 -Current Size (cm) - Width 0.2 1 -Current Size (cm) - Depth 0.1 0.1 -Total Square Cm 0.4 0.5 -Date of Last Picture (Recall this 12/24/23 field) -Exudate Amt Small Small -Exudate Type Serosanguineous Serosanguineous -Wound Margin Distinct, Distinct, Outline Outline Attached Attached -Granulation Amt Medium (34-66%) Large (67-100%) -Granulation Quality [place] Red -Necrosis Amt Medium (34-66%) Small (1-33%) -Necrotic Tissue Type Adherent Slough Adherent Slough -Texture (Yoon-wound Skin Appearance) Assessed Assessed -Moisture (Yoon-wound Skin Appearance) Assessed Assessed -Color (Yoon-wound Skin Appearance) Assessed, Assessed, Ecchymosis Ecchymosis -Temperature (Yoon-wound Skin No Abnormality No Abnormality Appearance) (Pt Warm) (Pt Warm) -Tenderness on Palpation (Yoon-wound No No Skin Appearance) -Ulcer Cleansing Rinsed/ Rinsed/ Irrigated with Irrigated with Saline Saline -Foul Odor after Cleansing No No -Anesthetic Used 5% Lidocaine 5% Lidocaine Gel Gel #3 RT POST UPPER THIGH -Current Size (cm) - Length 0.7 1 -Current Size (cm) - Width 0.7 0.8 -Current Size (cm) - Depth 0.1 0.2 -Total Square Cm 0.49 0.8 -Date of Last Picture (Recall this 12/24/23 field) -Exudate Amt Small Small -Exudate Type Serosanguineous Serosanguineous -Wound Margin Distinct, Distinct, Outline Outline Attached Attached -Granulation Amt Medium (34-66%) Large (67-100%) -Granulation Quality [place] Red -Necrosis Amt Medium (34-66%) Small (1-33%) -Necrotic Tissue Type Adherent Slough Adherent Slough -Texture (Yoon-wound Skin Appearance) Assessed Assessed -Moisture (Yoon-wound Skin Appearance) Assessed Assessed -Color (Yoon-wound Skin Appearance) Assessed, Assessed, Ecchymosis Ecchymosis -Temperature (Yoon-wound Skin No Abnormality No Abnormality Appearance) (Pt Warm) (Pt Warm) -Tenderness on Palpation (Yoon-wound No No Skin Appearance) -Ulcer Cleansing Rinsed/ Rinsed/ Irrigated with Irrigated with Saline Saline -Foul Odor after Cleansing No No -Anesthetic Used 5% Lidocaine 5% Lidocaine Gel Gel WC - Nurse 2 - General Ulcer CM Notes Start: 12/24/23 08:07 Freq: Status: Active Protocol: Activity Type Activity Date Activity User E-sign Co-sign Detail Recorded Client Recorded Date Recorded By Document 12/24/23 08:53 JEREMIAS [id number] 12/24/23 09:02 JF Document 12/31/23 10:24 JF [id number] 12/31/23 10:26 12/24/23 12/31/23 08:53 10:24 Wound Center Nurse 2 #4 LT UPPER POST THIGH CLUSTER -Time 09:00 10:24 -Correct Patient Yes Yes -Correct Side, Site, Position Yes Yes -Correct Procedure Yes Yes -Procedure Performed Yes Yes -Type of Procedure Debridement Debridement -Clinical Debridement Subcutaneous Subcutaneous -Tissue Removed Subcutaneous Subcutaneous -Post Debridement (cm) - Length 8.0 0.5 -Post Debridement (cm) - Width 0.5 0.6 -Post Debridement (cm) - Depth 0.1 0.1 -Total Square (Post) (cm) 4.00 0.30 -Area of Debridement (cm) - Length 8.0 0.5 -Area of Debridement (cm) - Width 0.5 0.6 -Total Square (Area) (cm) 4.00 0.30 -Tunneling No No -Undermining/Tunneling No No -Circular Undermining No No -Wound/Ulcer Outcome Not Healed Not Healed -Ulcer Cleansing Rinsed/ Rinsed/ Irrigated with Irrigated with Saline Saline -Foul Odor after Cleansing No No -Bioengineered Tissue No No -Bleeding Controlled with Pressure Pressure -Treatment Response Procedure Procedure Tolerated Well Tolerated Well -Offloading No No -Pressure Reduction Wheelchair cushion -Debridement - Subq, 1st 20sq cm No No #3 RT POST UPPER THIGH -Time 09:00 10:25 -Correct Patient Yes Yes -Correct Side, Site, Position Yes Yes -Correct Procedure Yes Yes -Procedure Performed Yes Yes -Type of Procedure Debridement Debridement -Clinical Debridement Subcutaneous Subcutaneous -Tissue Removed Subcutaneous Subcutaneous -Post Debridement (cm) - Length 0.6 0.5 -Post Debridement (cm) - Width 0.6 0.5 -Post Debridement (cm) - Depth 0.2 0.1 -Total Square (Post) (cm) 0.36 0.25 -Area of Debridement (cm) - Length 0.6 0.5 -Area of Debridement (cm) - Width 0.6 0.5 -Total Square (Area) (cm) 0.36 0.25 -Tunneling No No -Undermining/Tunneling No No -Circular Undermining No No -Wound/Ulcer Outcome Not Healed Not Healed -Ulcer Cleansing Rinsed/ Rinsed/ Irrigated with Irrigated with Saline Saline -Foul Odor after Cleansing No No -Bioengineered Tissue No No -Bleeding Controlled with Pressure Silver Nitrate -Treatment Response Procedure Procedure Tolerated Well Tolerated Well -Offloading No No -Debridement - Subq, 1st 20sq cm Yes Yes Pain Scale: 0-10 Numeric Is Patient Pain Free? Yes Yes - Nurse 3 - General Ulcer D/C NN Start: 12/24/23 08:07 Freq: Status: Active Protocol: Activity Type Activity Date Activity User E-sign Co-sign Detail Recorded Client Recorded Date Recorded By Document 12/24/23 09:14 [facility] [id number] 12/24/23 09:15 [facility] Document 12/31/23 10:32 [facility] [id number] 12/31/23 10:33 [facility] 12/24/23 12/31/23 09:14 10:32 Wound Care Center Nurse 3 #4 LT UPPER POST THIGH CLUSTER -Ulcer Cleansing Rinsed/ Rinsed/ Irrigated with Irrigated with Saline Saline -Foul Odor after Cleansing No No -Primary Dressing Applied C Hydrogel ($), Mepilex Border Mepilex Border -Other Dressing HYDROGEL -Primary Dressing Covered/Secured with Dry Gauze -Mepilex Border 1 1 #3 RT POST UPPER THIGH -Ulcer Cleansing Rinsed/ Rinsed/ Irrigated with Irrigated with Saline Saline -Foul Odor after Cleansing No No -Primary Dressing Applied Mepilex Border Mepilex Border -Other Dressing HYDROGEL HYDROGEL -Primary Dressing Covered/Secured with Dry Gauze -Mepilex Border 1 1 Treatment Response Procedure Procedure Tolerated Well Tolerated Well Pain Scale: 0-10 Numeric Is Patient Pain Free? Yes Yes - Visit Discharge Discharge Condition Stable Stable Ambulatory Status Wheelchair Wheelchair Transportation [facility] Type Home Health Additional Wound Wound debrided: Posterior thigh ulcer Laterality: Left Wound Grade/Stage: Stage II Type of Debridement: Excisional debridement Anesthesia Used: 5% Lidocaine Gel Depth: Down to and including healthy tissue and in the subcutaneous layer Percentage of wound debrided: 100 Instrument Used: 3mm curette Tissue Removed: Non viable tissue and slough Severity: Limited To Skin Breakdown Amount of bleeding with debridement: Mild Bleeding Controlled with: Pressure and Compression and gauze Patient tolerated procedure: Patient tolerated procedure well Assessment/Plan Assessment/Plan (1) Pressure ulcer of upper thigh: CODE(S): L89.209 - Pressure ulcer of unspecified hip, unspecified stage QUALIFIERS: Pressure injury stage: stage 2 Laterality: unspecified laterality Qualified Code(s): L89.202 - Pressure ulcer of unspecified hip, stage 2 (2) Morbid obesity with BMI of 70 and over, adult: CODE(S): E66.01 - Morbid (severe) obesity due to excess calories; Z68.45 - Body mass index [BMI] 70 or greater, adult (3) Immobility: CODE(S): Z74.09 - Other reduced mobility (4) Diabetes mellitus, type II: CODE(S): E11.9 - Type 2 diabetes mellitus without complications QUALIFIERS: Diabetes mellitus half-way insulin use: with buttermaker 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 Wound care will be Collagen hydrogel covered with [place] SAP daily and as needed. She will wash these areas with soap and water and pat dry at the time of the dressing changes. She may place a barrier cream to the yoon wound after the dressing is in place. Stressed importance of not sitting in one place for long periods of time. She needs to off load ideally every 20 - 30 minutes. She has a difficult time shifting or changing positions when sitting due to her size. She does have a hospital bed. Will order an overlay for her mattress to help with off loading. She will follow up one week.
[2024-01-14 10:40] VITALS: BP 108/45; PULSE 62; RESP 18; TEMP 35.5
--- NOTE | 2024-01-14 12:14 | PCM.WC.PN ---
History of Present Illness Date of Service: 01/14/24 Chief Complaint: Pressure ulceration of the left proximal posterior thigh History of Wound: Joselyn Khan is a 63 y/o female who presents today for evaluation and management of bilateral posterior thigh ulcerations. She reports that she has had ulcerations to her posterior legs and buttocks recurrently over the last 4 years. She is not sure how long the current ulceration has been there. They come and go. She has seen DEBRA Rios here in the past, with her last appointment in May 2023. She states that they can be very painful and will bleed on occasion. She does place a barrier cream on the yoon wound. She is morbidly obese. She also has significant osteoarthritis of her knees and hips. This combination severely limits her mobility. She does ambulate short distances at home with a rollator. She tends to sit in her wheelchair or her recliner for long periods of time. She uses a wheelchair when she goes outside her home. She has home health who assists her with her dressing changes. She is diabetic with an A1c around 6.8 by report. She does not smoke. She does not have any known autoimmune conditions. She does not take any blood thinners. Progress of Wound: Left upper thigh ulcer is healed today. The right upper thigh ulcer is smaller. She continues to have a purple/bruised areas on her posterior thighs bilaterally. She states she has been trying to off load as much as possible. She has a hospital bed but not a specialty mattress. Objective Data Objective Data Vital Signs: Vital Signs Temp Pulse Resp BP O2 Del Method 95.9 F L 62 18 108/45 L Room Air 01/14/24 10:40 01/14/24 10:40 01/14/24 10:40 01/14/24 10:40 01/14/24 10:40 Oxygen Delivery Method Room Air Charges/Coding Procedures Integumentary [id number]: [id number] Shanna subq tissue 20 sq cm/< Debridement Note Debridement Note Wound debrided: Posterior thigh ulcer Laterality: Right Wound Grade/Stage: Stage II Type of Debridement: Excisional debridement Anesthesia Used: 5% Lidocaine Gel Depth: Down to and including healthy tissue and in the subcutaneous layer Percentage of wound debrided: 100 Instrument Used: 3mm curette Tissue Removed: Non viable tissue and slough Severity: Limited To Skin Breakdown Amount of bleeding with debridement: Mild Bleeding Controlled with: Pressure, Compression and gauze and Silver Nitrate Patient tolerated procedure: Patient tolerated procedure well Post-Debridement Measurements and Additional Note: Post-Debridement Measurements/Treatment WC - Nurse 1 - General Ulcer Assessment Start: 12/24/23 08:07 Freq: Status: Active Protocol: WC.LOWEXT Activity Type Activity Date Activity User E-sign Co-sign Detail Recorded Client Recorded Date Recorded By Document 12/24/23 08:15 KW [id number] 12/24/23 08:20 KW Document 12/31/23 09:48 KW [id number] 12/31/23 09:59 KW Document 01/14/24 10:40 KW [id number] 01/14/24 10:55 KW 12/24/23 12/31/23 01/14/24 08:15 09:48 10:40 - Today's Visit Information Type of service Initial Visit Follow-up Visit Follow-up Visit (Physician/CERTIFIED PHLEBOTOMIST (Physician/CERTIFIED PHLEBOTOMIST ) ) Arrival Mode Wheelchair Wheelchair Wheelchair Patient Identification Verified (Name & Yes Yes Yes ) Height and Weight Height 4 ft 11 in Vital Signs Temperature (97.8 F-99.1 F) 97.3 F L 96.8 F L 95.9 F L Temperature Source Temporal Temporal Temporal Pulse Rate (60-100) 68 72 62 Pulse Location Monitor Monitor Monitor Respiratory Rate (12-18) 18 18 18 Respiratory rate source Observation Observation Ventilator Oxygen Delivery Method Room Air Room Air Room Air Blood Pressure (90/60-120/80) 122/54 H 140/69 H 108/45 L Blood Pressure Mean (mm Hg) 76 92 66 Source Monitor Monitor Monitor Position Sitting Sitting Sitting Blood Pressure Location Left Arm Right Forearm Left Forearm History Since Last Visit- (Skip if this is Patient's initial visit) Have you changed medications since your No No last visit? Any new allergies or adverse reactions No No Had a fall/change in ADL's that may No No increase risk of falls Signs or symptoms of abuse and/or No No neglect since last visit Have you been in the hospital since your No No last visit? Has dressing in place as prescribed Yes Yes Has compression in place as prescribed N/A N/A Has offloadiing in place as prescribed N/A N/A Experienced any changes in pain level or No No management Left Footwear Regular Shoe Regular Shoe Regular Shoe Right Footwear Regular Shoe Regular Shoe Regular Shoe Pain Scale: 0-10 Numeric Is Patient Pain Free? Yes Yes Yes WC - Nurse 1 - General Ulcer Measurement Start: 12/24/23 08:07 Freq: Status: Active Protocol: Activity Type Activity Date Activity User E-sign Co-sign Detail Recorded Client Recorded Date Recorded By Document 12/24/23 08:15 KW [id number] 12/24/23 08:20 KW Document 12/31/23 09:48 KW [id number] 12/31/23 09:59 KW Document 01/14/24 10:40 KW [id number] 01/14/24 10:55 KW 12/24/23 12/31/23 01/14/24 08:15 09:48 10:40 Wound Center Nurse 1 #4 LT UPPER POST THIGH CLUSTER -Current Size (cm) - Length 2 0.5 0.1 -Current Size (cm) - Width 0.2 1 0.1 -Current Size (cm) - Depth 0.1 0.1 0.1 -Total Square Cm 0.4 0.5 0.01 -Date of Last Picture (Recall this 12/24/23 field) -Exudate Amt Small Small None Present -Exudate Type Serosanguineous Serosanguineous -Wound Margin Distinct, Distinct, Outline Outline Attached Attached -Granulation Amt Medium (34-66%) Large (67-100%) None Present (0 %) -Granulation Quality [place] -Necrosis Amt Medium (34-66%) Small (1-33%) None Present (0 %) -Necrotic Tissue Type Adherent Slough Adherent Slough -Texture (Yoon-wound Skin Appearance) Assessed Assessed Assessed -Moisture (Yoon-wound Skin Appearance) Assessed Assessed Assessed -Color (Yoon-wound Skin Appearance) Assessed, Assessed, Assessed Ecchymosis Ecchymosis -Temperature (Yoon-wound Skin No Abnormality No Abnormality No Abnormality Appearance) (Pt Warm) (Pt Warm) (Pt Warm) -Tenderness on Palpation (Yoon-wound No No No Skin Appearance) -Ulcer Cleansing Rinsed/ Rinsed/ Rinsed/ Irrigated with Irrigated with Irrigated with Saline Saline Saline -Foul Odor after Cleansing No No No -Anesthetic Used 5% Lidocaine 5% Lidocaine Gel Gel #3 RT POST UPPER THIGH -Current Size (cm) - Length 0.7 1 0.4 -Current Size (cm) - Width 0.7 0.8 0.4 -Current Size (cm) - Depth 0.1 0.2 0.1 -Total Square Cm 0.49 0.8 0.16 -Date of Last Picture (Recall this 12/24/23 field) -Exudate Amt Small Small Small -Exudate Type Serosanguineous Serosanguineous Serosanguineous -Wound Margin Distinct, Distinct, Distinct, Outline Outline Outline Attached Attached Attached -Granulation Amt Medium (34-66%) Large (67-100%) Large (67-100%) -Granulation Quality [place] -Necrosis Amt Medium (34-66%) Small (1-33%) -Necrotic Tissue Type Adherent Slough Adherent Slough -Texture (Yoon-wound Skin Appearance) Assessed Assessed Assessed -Moisture (Yoon-wound Skin Appearance) Assessed Assessed Assessed -Color (Yoon-wound Skin Appearance) Assessed, Assessed, Assessed Ecchymosis Ecchymosis -Temperature (Yoon-wound Skin No Abnormality No Abnormality No Abnormality Appearance) (Pt Warm) (Pt Warm) (Pt Warm) -Tenderness on Palpation (Yoon-wound No No No Skin Appearance) -Ulcer Cleansing Rinsed/ Rinsed/ Rinsed/ Irrigated with Irrigated with Irrigated with Saline Saline Saline -Foul Odor after Cleansing No No No -Anesthetic Used 5% Lidocaine 5% Lidocaine 5% Lidocaine Gel Gel Gel WC - Nurse 2 - General Ulcer CM Notes Start: 12/24/23 08:07 Freq: Status: Active Protocol: Activity Type Activity Date Activity User E-sign Co-sign Detail Recorded Client Recorded Date Recorded By Document 12/24/23 08:53 [id number] 12/24/23 09:02 Document 12/31/23 10:24 JF [id number] 12/31/23 10:26 Document 01/14/24 11:16 JF [id number] 01/14/24 11:18 12/24/23 12/31/23 01/14/24 08:53 10:24 11:16 Wound Center Nurse 2 #4 LT UPPER POST THIGH CLUSTER -Time 09:00 10:24 -Correct Patient Yes Yes No -Correct Side, Site, Position Yes Yes No -Correct Procedure Yes Yes No -Procedure Performed Yes Yes No -Type of Procedure Debridement Debridement -Clinical Debridement Subcutaneous Subcutaneous -Tissue Removed Subcutaneous Subcutaneous -Post Debridement (cm) - Length 8.0 0.5 0 -Post Debridement (cm) - Width 0.5 0.6 0 -Post Debridement (cm) - Depth 0.1 0.1 0 -Total Square (Post) (cm) 4.00 0.30 0 -Area of Debridement (cm) - Length 8.0 0.5 0 -Area of Debridement (cm) - Width 0.5 0.6 0 -Total Square (Area) (cm) 4.00 0.30 0 -Tunneling No No -Undermining/Tunneling No No -Circular Undermining No No -Wound/Ulcer Outcome Not Healed Not Healed Healed- Epithelialized -Ulcer Cleansing Rinsed/ Rinsed/ Irrigated with Irrigated with Saline Saline -Foul Odor after Cleansing No No -Bioengineered Tissue No No -Bleeding Controlled with Pressure Pressure -Treatment Response Procedure Procedure Tolerated Well Tolerated Well -Offloading No No -Pressure Reduction Wheelchair cushion -Debridement - Subq, 1st 20sq cm No No #3 RT POST UPPER THIGH -Time 09:00 10:25 11:17 -Correct Patient Yes Yes Yes -Correct Side, Site, Position Yes Yes Yes -Correct Procedure Yes Yes Yes -Procedure Performed Yes Yes Yes -Type of Procedure Debridement Debridement Debridement -Clinical Debridement Subcutaneous Subcutaneous Subcutaneous -Tissue Removed Subcutaneous Subcutaneous Subcutaneous -Post Debridement (cm) - Length 0.6 0.5 0.6 -Post Debridement (cm) - Width 0.6 0.5 0.6 -Post Debridement (cm) - Depth 0.2 0.1 0.3 -Total Square (Post) (cm) 0.36 0.25 0.36 -Area of Debridement (cm) - Length 0.6 0.5 0.6 -Area of Debridement (cm) - Width 0.6 0.5 0.6 -Total Square (Area) (cm) 0.36 0.25 0.36 -Tunneling No No No -Undermining/Tunneling No No No -Circular Undermining No No No -Wound/Ulcer Outcome Not Healed Not Healed Not Healed -Ulcer Cleansing Rinsed/ Rinsed/ Rinsed/ Irrigated with Irrigated with Irrigated with Saline Saline Saline -Foul Odor after Cleansing No No No -Bioengineered Tissue No No No -Bleeding Controlled with Pressure Silver Nitrate Pressure -Treatment Response Procedure Procedure Procedure Tolerated Well Tolerated Well Tolerated Well -Offloading No No No -Debridement - Subq, 1st 20sq cm Yes Yes Yes Pain Scale: 0-10 Numeric Is Patient Pain Free? Yes Yes Yes - Nurse 3 - General Ulcer D/C NN Start: 12/24/23 08:07 Freq: Status: Active Protocol: Activity Type Activity Date Activity User E-sign Co-sign Detail Recorded Client Recorded Date Recorded By Document 12/24/23 09:14 [facility] [id number] 12/24/23 09:15 [facility] Document 12/31/23 10:32 BM [id number] 12/31/23 10:33 [facility] Document 01/14/24 11:18 [id number] 01/14/24 11:19 JF 12/24/23 12/31/23 01/14/24 09:14 10:32 11:18 Wound Care Center Nurse 3 #4 LT UPPER POST THIGH CLUSTER -Ulcer Cleansing Rinsed/ Rinsed/ Irrigated with Irrigated with Saline Saline -Foul Odor after Cleansing No No -Primary Dressing Applied C Hydrogel ($), Mepilex Border Mepilex Border -Other Dressing HYDROGEL -Primary Dressing Covered/Secured with Dry Gauze -Mepilex Border 1 1 #3 RT POST UPPER THIGH -Ulcer Cleansing Rinsed/ Rinsed/ Rinsed/ Irrigated with Irrigated with Irrigated with Saline Saline Saline -Foul Odor after Cleansing No No No -Primary Dressing Applied Mepilex Border Mepilex Border C Hydrogel ($), Mepilex Border -Other Dressing HYDROGEL HYDROGEL -Primary Dressing Covered/Secured with Dry Gauze -Mepilex Border 1 1 2 Treatment Response Procedure Procedure Tolerated Well Tolerated Well Pain Scale: 0-10 Numeric Is Patient Pain Free? Yes Yes Yes - Visit Discharge Discharge Condition Stable Stable Stable Ambulatory Status Wheelchair Wheelchair Wheelchair Transportation [employer] Medication Reconcilliation completed & Yes provided to patient/care provider Clinical Summary of Care Provided Yes Facility Type Home Health Assessment/Plan Assessment/Plan (1) Pressure ulcer of upper thigh: CODE(S): L89.209 - Pressure ulcer of unspecified hip, unspecified stage QUALIFIERS: Pressure injury stage: stage 2 Laterality: unspecified laterality Qualified Code(s): L89.202 - Pressure ulcer of unspecified hip, stage 2 (2) Morbid obesity with BMI of 70 and over, adult: CODE(S): E66.01 - Morbid (severe) obesity due to excess calories; Z68.45 - Body mass index [BMI] 70 or greater, adult (3) Immobility: CODE(S): Z74.09 - Other reduced mobility (4) Diabetes mellitus, type II: CODE(S): E11.9 - Type 2 diabetes mellitus without complications QUALIFIERS: Diabetes mellitus penitentiary insulin use: with technician terminal and repeater use Diabetes mellitus complication status: with unspecified complications Qualified Code(s): E11.8 - Type 2 diabetes mellitus with unspecified complications; Z79.4 - technician terminal and repeater (current) use of insulin PLAN: Plan Patient evaluated at the wound healing center. Wound care will be Collagen hydrogel covered with [place] SAP daily and as needed to the right thigh. To the left thigh, she will place an [place] SAP dressing every 2-3 days for extra protection to prevent it from reopening. She will wash these areas with soap and water and pat dry at the time of the dressing changes. She may place a barrier cream to the yoon wound after the dressing is in place. She states she has been off loading as much as she can. She does have a hospital bed. Will order an overlay for her mattress to help with off loading. She will follow up two weeks.
== END 2024-01-19 23:59 | disposition home or self-care (01) ==
LOC: WC 10:30
PROVIDERS: PCP Family Medicine; Referring Provider Clinical Nurse Specialist Adult Health; Visit Provider Nurse Practitioner Family
DX: E11.622 Type 2 diabetes mellitus with other skin ulcer (principal); L97.112 Non-pressure chronic ulcer of right thigh with fat layer exposed; L97.122 Non-pressure chronic ulcer of left thigh with fat layer exposed; I50.9 Heart failure, unspecified; I11.0 Hypertensive heart disease with heart failure; J44.9 Chronic obstructive pulmonary disease, unspecified; E66.01 Morbid (severe) obesity due to excess calories; Z68.45 Body mass index [BMI] 70 or greater, adult; Z79.4 Long term (current) use of insulin; E11.42 Type 2 diabetes mellitus with diabetic polyneuropathy; E78.2 Mixed hyperlipidemia; G89.29 Other chronic pain; Z79.899 Other long term (current) drug therapy; Z74.09 Other reduced mobility
CPT/HCPCS: 11042; 99214; G0463

== ENCOUNTER 2024-04-25 09:23 | Emergency (ER) | payer MEDICARE, MEDICAID, SELFPAY ==
[2024-04-25] VITALS (7 sets, daily range): BP systolic 122–171; BP diastolic 61–81; PULSE 67–78; RESP 15–20; TEMP 36.4–36.6; O2SAT 95–99; BMI 75.3
--- NOTE | 2024-04-25 10:00 | ED.VIS.CHEST ---
HPI History of Present Illness Chief Complaint: Chest Pain Informant: patient and EMS Narrative Narrative: 64-year-old female presenting to the emergency room with a chief complaint of chest pain. Patient states that on Sunday she began to experience a left pressure with sharpness when she got up and moved around. She states a long as she is at rest she feels fine. This is been persistent until this morning when she then felt it into her throat and her back. She denies any nausea vomiting she denies any cough shortness of breath. She states she has had prior heart catheter been negative. She does have a history of COPD diabetes obesity hypertension obstructive sleep apnea. [facility] Medical History COVID-19 Vitamin D deficiency Hyperparathyroidism Immobility Peripheral neuropathy Mixed hyperlipidemia COPD (chronic obstructive pulmonary disease) History of DVT (deep vein thrombosis) SVT (supraventricular tachycardia) Essential hypertension JEREMÍAS treated with BiPAP Pulmonary hypertension Exertional dyspnea Chronic back pain Diabetes mellitus, type II Heart failure Anxiety and depression Sepsis Lumbosacral neuritis Esophageal reflux Morbid obesity Home Medications ?Medication ?Instructions ?Recorded ?Last Taken ?Type duloxetine 60 mg capsule,delayed 60 mg PO DAILY depression 12/02/14 03/02/22 History release aripiprazole 10 mg tablet 10 mg PO QHS Depression 10/21/17 03/01/22 History pravastatin 20 mg tablet 20 mg PO QHS cholesterol 04/09/19 03/01/22 History famotidine 40 mg tablet 40 mg PO DAILY stomach 11/08/19 03/02/22 History insulin glargine 100 unit/mL (3 35 unit SQ DAILY blood sugar 11/08/19 03/02/22 History mL) subcutaneous pen hydrocodone-acetaminophen 5-325mg 1 tab PO BID PRN Pain 06/29/20 03/01/22 History 5mg-325mg potassium chloride 10 mEq 10 meq PO DAILY supplement 06/29/20 03/02/22 History capsule,extended release acetaminophen 650 mg 650 mg PO TID PRN Pain 09/14/20 03/02/22 History tablet,extended release spironolactone 50 mg tablet 25 mg PO DAILY fluid 09/14/20 03/02/22 History trazodone 100 mg tablet 100 mg PO QHS SLEEP 09/14/20 03/01/22 History cholecalciferol (vitamin D3) 125 125 mcg PO DAILY 03/02/22 03/02/22 History mcg (5,000 unit) tablet (Vitamin D3) furosemide 80 mg tablet 80 mg PO DAILY FLUID 03/02/22 03/02/22 History gabapentin 300 mg capsule 300 mg PO Q12H PAIN 03/02/22 03/01/22 History ibuprofen 200 mg tablet 800 mg PO Q8H PRN Fever 03/02/22 03/02/22 07:45 History albuterol sulfate 90 mcg/actuation 2 inh inhalation Q4H PRN shortness 05/17/23 Unknown History aerosol inhaler of breath or wheezing ascorbic acid (vitamin C) 1,500 mg 1,500 mg PO DAILY 05/17/23 Unknown History tablet,extended release glucosamine 750 [id number] 1 tab PO BID 05/17/23 Unknown History no1 644 mg-C 30 mg-galdino 1 mg tablet (Osteo Bi-Flex Triple Strength) hydroxyzine pamoate 25 mg capsule 25 mg PO Q8H PRN anxiety 05/17/23 Unknown History potassium chloride 8 mEq 8 meq PO DAILY 05/17/23 Unknown History capsule,extended release ropinirole 0.25 mg tablet 0.25 mg PO QHS 05/17/23 Unknown History tizanidine 4 mg capsule 4 mg PO TID PRN muscle spasticity 05/17/23 Unknown History Allergy/AdvReac Type Severity Reaction Status Date / Time vancomycin Allergy Rash Verified 04/25/24 09:31 atorvastatin AdvReac Severe myalgias Verified 04/25/24 09:31 amlodipine AdvReac Unknown Verified 04/25/24 09:31 atenolol AdvReac Unknown Verified 04/25/24 09:31 bupropion HCl (From AdvReac Unknown Verified 04/25/24 09:31 Wellbutrin) fluoxetine HCl (From Prozac) AdvReac Unknown Verified 04/25/24 09:31 meloxicam (From Mobic) AdvReac Unknown Verified 04/25/24 09:31 metoprolol AdvReac Unknown Verified 04/25/24 09:31 pregabalin (From Lyrica) AdvReac Unknown Verified 04/25/24 09:31 quetiapine fumarate (From AdvReac Unknown Verified 04/25/24 09:31 Seroquel) quinapril HCl (From Accupril) AdvReac Unknown Verified 04/25/24 09:31 risperidone AdvReac Unknown Verified 04/25/24 09:31 rofecoxib (From Vioxx) AdvReac Unknown Verified 04/25/24 09:31 sitagliptin phosphate (From AdvReac Unknown Verified 04/25/24 09:31 Januvia) venlafaxine HCl (From AdvReac Unknown Verified 04/25/24 09:31 Effexor) Family History Mother Hypertension CVA (cerebral vascular accident) Diabetes Heart disease Father Hypertension COPD (chronic obstructive pulmonary disease) Sister Hypertension Sister Hypertension Diabetes Brother Hypertension Diabetes Brother Hypertension Diabetes Brother Hypertension CAD (coronary artery disease) History of coronary artery bypass surgery, Onset Age: 48 Diabetes Surgical History History of laparoscopic cholecystectomy History of hernia repair History of left heart catheterization (LHC) (~05/23/12) Social History household members: none Smoking Status: Former smoker alcohol intake: never substance use type: does not use ROS ROS ED Constitutional Constitutional ED: Denies chills or weight loss Eyes Eyes: Denies change in vision or diplopia ENT ENT ED: Denies ear pain, rhinorrhea or sore throat Cardiovascular Cardiovascular: Reports chest pain and other Details: See history of present illness ; Denies orthopnea, palpitations or racing heartbeat Respiratory/Chest Respiratory/Chest: Denies cough, dyspnea or orthopnea Gastrointestinal Gastrointestinal: Denies abdominal pain, diarrhea, nausea or vomiting Genitourinary Genitourinary ED: Denies dysuria, hematuria or urinary frequency Musculoskeletal Musculoskeletal: Denies arthralgias or myalgias Integumentary Denies abscess or rash Neurologic Neurologic: Denies headache(s) or weakness Psychiatric Psychiatric: Denies anxiety, depression, suicidal ideation or suicidal thoughts Endocrine Endocrinology: Denies polydipsia, polyphagia or polyuria Allergic/Immunologic Allergic/Immunologic ED: Denies mouth swelling, tongue swelling or urticaria EXAM Physical Exam Const Vital Signs: 04/25/24 09:26 04/25/24 10:23 04/25/24 11:00 Temperature 97.6 F L Temperature Source Temporal Pulse Rate 70 69 68 Respiratory Rate 16 20 H 18 Blood Pressure 154/81 H 122/73 H 122/70 H Blood Pressure Mean 105 89 87 Pulse Ox 96 96 95 Oxygen Delivery Method Room Air 04/25/24 12:00 04/25/24 13:00 04/25/24 14:00 Temperature Temperature Source Pulse Rate 68 67 77 Respiratory Rate 18 18 20 H Blood Pressure 171/76 H 130/61 H 126/65 H Blood Pressure Mean 107 84 85 Pulse Ox 95 95 98 Oxygen Delivery Method Room Air 04/25/24 14:43 Temperature 98 F Temperature Source Pulse Rate 78 Respiratory Rate 15 Blood Pressure 126/65 H Blood Pressure Mean 85 Pulse Ox 99 Oxygen Delivery Method Positive well nourished, well developed and obese General Appearance ED: well developed and NAD Nutritional Appearance: obese HEENT Reports normocephalic, head/scalp atraumatic and moist mucous membranes Eyes PERRL and EOMs intact bilaterally Neck no lymphadenopathy, supple and no JVD Resp normal respiratory effort and clear to auscultation bilaterally Cardio regular rate, regular rhythm and no murmurs GI normal to inspection, nondistended, normoactive bowel sounds and non-tender Palpation: soft Back/Spine no CVA tenderness and normal ROM Extremity normal to inspection General Extremety ED: Negative for edema General Extremity: Negative for edema Neuro oriented x3 and CN's II-XII intact bilaterally Sensorium / Orientation: alert Motor Exam: strength 5/5 throughout Psych mental status grossly normal Mood & Affect: Negative for depressed or tearful Skin no rashes or lesions noted and no wounds MDM MDM MDM Narrative Medical decision making narrative: Differential diagnosis includes but not limited to acute coronary syndrome pericarditis pulmonary embolism aortic dissection pleurisy costochondritis GERD Patient's symptoms are only when she gets up and moves. When she is at rest she is asymptomatic and I doubt that this is pulmonary embolism or dissection. 2 sets of cardiac enzymes are normal at 13 and her EKG is nonischemic. Glucose is 176. My independent interpretation of the chest x-ray is no acute process. She is observed on the monitor and has had no cardiac dysrhythmias. Clinically I think the patient can be discharged home. She needs to take an ambulance to get home. I do not feel strongly that she needs to be admitted. I cannot explain why she is having the symptoms. History & Record Review Discussion w/independent historian: Patient Lab Data Attestation: I reviewed the patient's lab results. Labs: Laboratory Results - last 24 hr 04/25/24 04/25/24 10:11 13:06 WBC 5.4 RBC 3.98 L Hgb 12.0 Hct 35.2 L MCV 88.4 MCH 30.2 MCHC 34.1 RDW Std Deviation 40.4 RDW Coeff of Kaity 12.7 Plt Count 212 MPV 10.0 Immature Gran % (Auto) 0.200 Neut % (Auto) 65.6 Lymph % (Auto) 24.7 [place] % (Auto) 6.7 Eos % (Auto) 2.6 Baso % (Auto) 0.2 Absolute Neuts (auto) 3.5 Absolute Lymphs (auto) 1.33 Nucleated RBC % 0 Sodium 141 Potassium 4.0 Chloride 100 Carbon Dioxide 29.6 Anion Gap 11 BUN 28 H Creatinine 0.98 Est GFR (MDRD) Non-Af 65 BUN/Creatinine Ratio 28.2 H Glucose 176 H Calcium 9.0 Troponin T High Sens 13 Troponin T Hi Sens 2 Hr 13 Radiography Diagnostic Testing: Clinical Impression(s) from Imaging Studies Chest X-Ray 04/25/24 10:50 IMPRESSION: 1. No visible acute cardiopulmonary findings. 2. Additional description as above. Reading Location: [facility] EKG Initial EKG: Attestation: I personally reviewed and interpreted this EKG as follows: Comments: Normal sinus rhythm ventricular rate of 64 bpm Discharge Plan Triage Chief Complaint: Chest Pain ED Provider: Zain Andrade Dx/Rx/DC Orders Clinical Impression: Chest pain Instructions: ED Chest Pain, Uncertain Cause Prescriptions: No Action pravastatin 20 mg tablet 20 mg PO QHS duloxetine 60 MG capsule,delayed release(DR/EC) 60 mg PO DAILY aripiprazole 10 MG tablet 10 mg PO QHS famotidine 40 MG tablet 40 mg PO DAILY insulin glargine 100 UNIT/ML insulin pen 35 unit SQ DAILY potassium chloride 10 mEq Capsule, Extended Release 10 meq PO DAILY hydrocodone-acetaminophen 5-325 mg Tablet 1 tab PO BID PRN (Reason: Pain) acetaminophen 650 mg tablet extended release 650 mg PO TID PRN (Reason: Pain) Patient Comments: take 2 tablets by mouth three times a day if needed trazodone 100 mg tablet 100 mg PO QHS MDD insomnia Patient Comments: take 1 tablet by mouth every evening spironolactone 50 mg tablet 25 mg PO DAILY Patient Comments: take 1 tablet by mouth once daily cholecalciferol (vitamin D3) [Vitamin D3] 125 mcg (5,000 unit) Tablet 125 mcg PO DAILY ibuprofen 200 mg Tablet 800 mg PO Q8H PRN (Reason: Fever) gabapentin 300 mg capsule 300 mg PO Q12H furosemide 80 mg tablet 80 mg PO DAILY Patient Comments: take 1 tablet by mouth once daily hydroxyzine pamoate 25 mg capsule 25 mg PO Q8H PRN (Reason: anxiety) tizanidine 4 mg capsule 4 mg PO TID PRN (Reason: muscle spasticity) ropinirole 0.25 mg tablet 0.25 mg PO QHS Osteo Bi-Flex Triple Strength 750 mg-644 mg- 30 mg-1 mg tablet 1 tab PO BID potassium chloride 8 mEq capsule, extended release 8 meq PO DAILY albuterol sulfate 90 mcg/actuation HFA aerosol inhaler 2 inh inhalation Q4H PRN (Reason: shortness of breath or wheezing) ascorbic acid (vitamin C) 1,500 mg tablet extended release 1,500 mg PO DAILY Primary Care Provider: Joi Paul Referrals: Joi Paul CNS [Primary Care Provider] - Keep Johnny appointment Vincent Negro MD [Non-Staff] - Print Language: Arabic Disposition Disposition: Home, Self Care
[2024-04-25 10:19] LABS: Absolute Lymphocyte Count 1.33 X10^3/uL (0.83-4.51); Absolute Neutrophil Count 3.5 X10^3/uL (2.0-7.7); Basophil# 0.01 X10^3/uL; Basophil% 0.2 % (0-1); Eosinophil# 0.14 X10^3/uL; Eosinophils% 2.6 % (0-5); Hematocrit 35.2 % (37-47); Lymphocyte # 1.33 X10^3/ul (0.83-4.51); Lymphocyte % 24.7 % (19-41); Mean Corp Hgb Conc 34.1 g/dL (32-36); Mean Corpuscular Hgb 30.2 pg (27.0-32.0); Mean Corpuscular Volume 88.4 fL (81-99); Monocyte# 0.36 X10^3/uL; Monocyte% 6.7 % (0-10); NRBC Flagged by Analyzer 0 % (0-5); Neutrophil # 3.54 X10^3/uL (2.7-7.7); Neutrophil % 65.6 % (47-70); Platelet Count 212 K/mm3 (150-450); RBC Distribution Width CV 12.7 % (11.6-14.6); RBC Distribution Width SD 40.4 fl (35.1-43.9); Red Blood Count 3.98 M/mm3 (4.2-5.4); White Blood Count 5.4 K/mm3 (4.4-11.0)
[2024-04-25 10:42] LABS: Anion Gap 11 (5-15); BUN 28 mg/dL (4-19); BUN/Creat Ratio 28.2 RATIO (10-20); Carbon Dioxide 29.6 mmol/L (21.0-32.0); Chloride 100 mmol/L (98-108); Creatinine, Serum 0.98 mg/dL (0.70-1.20); EST Glomerular Filtration Rate 65 (>60); Glucose 176 mg/dL (70-99); Sodium Level 141 mmol/L (133-145); Troponin T High Sensitivity 13 ng/L (<=14)
--- NOTE | 2024-04-25 10:50 | RAD_ITS ---
PROCEDURE: CHEST 1 VIEW (PORTABLE) REASON FOR EXAM: Chest pain TECHNIQUE: Single portable AP view of the chest was obtained. COMPARISON: 09/14/2020 FINDINGS: Heart: Unremarkable. Mediastinum: Unremarkable. Lungs/pleura: No focal consolidation. No sizeable pleural effusion or visible pneumothorax. Granuloma on the left. Bones: Degenerative changes of the shoulders. Lines and support devices: None. RAD/Chest 1 View (Portable) IMPRESSION: 1. No visible acute cardiopulmonary findings. 2. Additional description as above. Reading Location: [id number]
[2024-04-25 13:47] LABS: Troponin T High Sens 2 HR 13 ng/L (<=14)
--- NOTE | 2024-04-25 15:59 | ED.RN ---
Pt D/C, no vitals at this time.
== END 2024-04-25 17:55 | disposition home or self-care (01) ==
PROVIDERS: Emergency Provider Emergency Medicine; PCP Clinical Nurse Specialist Adult Health; Visit Provider Emergency Medicine
DX: R07.9 Chest pain, unspecified (principal); I11.0 Hypertensive heart disease with heart failure; I50.9 Heart failure, unspecified; J44.9 Chronic obstructive pulmonary disease, unspecified; E11.42 Type 2 diabetes mellitus with diabetic polyneuropathy; E66.9 Obesity, unspecified; G47.33 Obstructive sleep apnea (adult) (pediatric); Z86.16 Personal history of COVID-19; Z86.718 Personal history of other venous thrombosis and embolism; Z87.891 Personal history of nicotine dependence
CPT/HCPCS: 71045; 80048; 84484; 85025; 93005; 99285; A4216

== ENCOUNTER 2025-02-11 15:51 | Emergency (ER) | payer MEDICARE, MEDICAID, SELFPAY ==
[2025-02-11] VITALS (27 sets, daily range): BP systolic 113–160; BP diastolic 49–85; PULSE 64–80; RESP 13–22; TEMP 36.6–36.7; O2SAT 91–99; BMI 82.3
--- NOTE | 2025-02-11 15:53 | EX.ED.DYSGE1 ---
HPI History of Present Illness Chief Complaint: Shortness of Breath [facility] Medical History COVID-19 Vitamin D deficiency Hyperparathyroidism Immobility Peripheral neuropathy Mixed hyperlipidemia COPD (chronic obstructive pulmonary disease) History of DVT (deep vein thrombosis) SVT (supraventricular tachycardia) Essential hypertension JEREMÍAS treated with BiPAP Pulmonary hypertension Exertional dyspnea Chronic back pain Diabetes mellitus, type II Heart failure Anxiety and depression Sepsis Lumbosacral neuritis Esophageal reflux Morbid obesity Home Medications ?Medication ?Instructions ?Recorded ?Last Taken ?Type duloxetine 60 mg capsule,delayed 60 mg PO DAILY depression 12/02/14 03/02/22 History release aripiprazole 10 mg tablet 10 mg PO QHS Depression 10/21/17 03/01/22 History famotidine 40 mg tablet 40 mg PO DAILY stomach 11/08/19 03/02/22 History spironolactone 50 mg tablet 25 mg PO DAILY fluid 09/14/20 03/02/22 History trazodone 100 mg tablet 100 mg PO QHS SLEEP 09/14/20 03/01/22 History cholecalciferol (vitamin D3) 125 125 mcg PO DAILY 03/02/22 03/02/22 History mcg (5,000 unit) tablet (Vitamin D3) furosemide 80 mg tablet 80 mg PO DAILY FLUID 03/02/22 03/02/22 History ibuprofen 200 mg tablet 800 mg PO Q8H PRN Fever 03/02/22 03/02/22 07:45 History glucosamine 750 [id number] 1 tab PO BID 05/17/23 Unknown History no1 644 mg-C 30 mg-galdino 1 mg tablet (Osteo Bi-Flex Triple Strength) ropinirole 0.25 mg tablet 0.25 mg PO QHS 05/17/23 Unknown History acetaminophen 650 mg 1,300 mg PO Q8H PRN Pain 02/11/25 Unknown History tablet,extended release ascorbic acid PO DAILY 02/11/25 Unknown History furosemide 20 mg tablet 20 mg PO DAILY 02/11/25 Unknown History furosemide 40 mg tablet (Lasix) 40 mg PO DAILY 7 days #7 tabs 02/11/25 Unknown Rx gabapentin 600 mg tablet 600 mg PO BID 02/11/25 Unknown History hydrocodone 7.5 mg-acetaminophen 1 - 2 tab PO Q4H PRN pain 02/11/25 Unknown History 325 mg tablet hydroxyzine pamoate 25 mg capsule 25 mg PO TID PRN anxiety 02/11/25 Unknown History insulin glargine 100 unit/mL (3 34 unit subcut DAILY blood sugar 02/11/25 Unknown History mL) subcutaneous pen potassium chloride 8 mEq 8 meq PO DAILY 02/11/25 Unknown History capsule,extended release pravastatin 40 mg tablet 40 mg PO DAILY 02/11/25 Unknown History tizanidine 4 mg capsule 4 mg PO Q8H PRN muscle spasticity 02/11/25 Unknown History Allergy/AdvReac Type Severity Reaction Status Date / Time mirtazapine Allergy rash Verified 02/11/25 15:58 vancomycin Allergy Rash Verified 02/11/25 15:58 atorvastatin AdvReac Severe myalgias Verified 02/11/25 15:58 amlodipine AdvReac Unknown Verified 02/11/25 15:58 atenolol AdvReac Unknown Verified 02/11/25 15:58 bupropion HCl (From AdvReac Unknown Verified 02/11/25 15:58 Wellbutrin) celecoxib (From Celebrex) AdvReac Swelling Verified 02/11/25 15:58 dulaglutide (From Trulicity) AdvReac intolerance Verified 02/11/25 15:58 fluoxetine HCl (From Prozac) AdvReac Unknown Verified 02/11/25 15:58 meloxicam (From Mobic) AdvReac Unknown Verified 02/11/25 15:58 metoprolol AdvReac Unknown Verified 02/11/25 15:58 pioglitazone AdvReac Swelling Verified 02/11/25 15:58 pregabalin (From Lyrica) AdvReac Unknown Verified 02/11/25 15:58 quetiapine fumarate (From AdvReac Unknown Verified 02/11/25 15:58 Seroquel) quinapril HCl (From Accupril) AdvReac Unknown Verified 02/11/25 15:58 risperidone AdvReac Unknown Verified 02/11/25 15:58 rofecoxib (From Vioxx) AdvReac Unknown Verified 02/11/25 15:58 sitagliptin phosphate (From AdvReac Unknown Verified 02/11/25 15:58 Januvia) venlafaxine HCl (From AdvReac Unknown Verified 02/11/25 15:58 Effexor) Family History Mother Hypertension CVA (cerebral vascular accident) Diabetes Heart disease Father Hypertension COPD (chronic obstructive pulmonary disease) Sister Hypertension Sister Hypertension Diabetes Brother Hypertension Diabetes Brother Hypertension Diabetes Brother Hypertension CAD (coronary artery disease) History of coronary artery bypass surgery, Onset Age: 48 Diabetes Surgical History H/O colonoscopy History of laparoscopic cholecystectomy History of hernia repair History of left heart catheterization (LHC) (~05/23/12) Social History household members: none Smoking Status: Former smoker alcohol intake: never substance use type: does not use EXAM Physical Exam Const Vital Signs: 02/11/25 15:51 02/11/25 15:54 02/11/25 15:54 Temperature 97.9 F 97.9 F Temperature Source Oral Oral Pulse Rate 79 79 Respiratory Rate 19 H 17 Respiratory Effort Normal Short of Breath Respiratory Depth Normal Respiratory Pattern Normal Blood Pressure 144/56 H 144/56 H Blood Pressure Mean 85 85 Pulse Ox 97 97 Oxygen Delivery Method Room Air Room Air Room Air 02/11/25 16:04 02/11/25 16:15 02/11/25 16:30 Temperature Temperature Source Pulse Rate 69 71 66 Respiratory Rate 21 H 20 H 16 Respiratory Effort Respiratory Depth Respiratory Pattern Blood Pressure 141/49 H 119/54 L Blood Pressure Mean 72 69 Pulse Ox 96 95 93 Oxygen Delivery Method 02/11/25 16:45 02/11/25 17:00 02/11/25 17:00 Temperature Temperature Source Pulse Rate 64 76 Respiratory Rate 22 H 13 Respiratory Effort Respiratory Depth Respiratory Pattern Blood Pressure 113/52 L 130/54 H 130/54 H Blood Pressure Mean 71 73 73 Pulse Ox 95 97 Oxygen Delivery Method 02/11/25 17:13 02/11/25 17:15 02/11/25 17:16 Temperature Temperature Source Pulse Rate Respiratory Rate Respiratory Effort Respiratory Depth Respiratory Pattern Blood Pressure 121/85 H 148/85 H Blood Pressure Mean 93 101 Pulse Ox 99 97 Oxygen Delivery Method MDM MDM MDM Narrative Medical decision making narrative: HISTORY OF PRESENT ILLNESS: Chief complaint: Shortness of breath 65-year-old female history of COPD, obesity, hypertension, pulmonary hypertension, type 2 diabetes, heart failure presents with shortness of breath. No chest pain endorsed. The patient states she has had shortness of breath and leg swelling for 2 weeks. She notes that her shortness of breath is worse with exertion but also at rest and lying flat. Denies any PE risk factors (the patient denies recent surgery in the last 4 weeks or immobilization in the last 3 days, denies previous diagnosis of DVT or PE, hemoptysis, unilateral leg swelling or malignancy with treatment the last 6 months or palliative. No estrogen use noted.). Denies bleeding diathesis. Denies melena hematochezia. Denies cough fever chills. Notes compliance with home Lasix but notes decreased urination from what she would expect. REVIEW OF SYSTEMS: Pertinent positives: Shortness of breath, leg swelling Pertinent negatives: As per HPI PHYSICAL EXAM: Nursing triage notes reviewed, Vital signs reviewed Constitutional: please see [facility] HENT: MMM Eyes: Pupils equal round and reactive to light, Extraocular muscles intact Neck: No stridor, no JVD, full neck ROM Lungs: Clear to auscultation, No wheezing or rales. No increased work of breathing, no conversational dyspnea, no accessory muscle use, no nasal flaring. No respiratory distress noted Heart: Regular rate and rhythm, No murmurs, No rubs and No gallops, 2+ distal pulses (radial, femoral, posterior tibial) in all extremities Abdomen: Soft, there is no tenderness, rigidity, rebound or guarding, no obvious peritoneal signs, no palpable pulsatile abdominal masses, no auscultated abdominal bruit : No CVAT Extremities: No edema Neuro: No new focal neurological deficits, cranial nerves II through XII intact, 5/5 strength in all present extremities. Intact sensation to light touch in all present extremities, 2+ reflexes bilateral patella tendons. Skin: No rash or lesions noted MEDICAL DECISION MAKING: Chief Complaint: please see HPI External records reviewed: Reviewed echocardiogram from 2021 shows ejection fraction 55% stage I diastolic this Factors affecting care: n as per HPI Social determinants of health: none History obtained from others: EMS Consults: none [facility] Narrative: The patient was initially hemodynamically stable, afebrile and nontoxic-appearing. Exam. Volume overloaded. No unilateral leg swelling. No pulse deficits. I considered the following differential diagnosis: CHF exacerbation, pneumonia, COVID/RSV/flu, anemia, ACS, arrhythmia I obtained a broad lab and imaging work to further determine if the patient was suffering from a life-threatening etiology. ALL IMAGES (IF OBTAINED) HAVE BEEN PERSONALLY REVIEWED AND INTERPRETED BY MYSELF. EKG with normal sinus rhythm, rate of 69, normal axis, normal intervals, no STEMI, no sign of CBC with no leukocytosis, mild anemia but no thrombocytopenia BNP within the limit suggestive no increased ventricular stretch, transmural pressure BMP without evidence of significant electrolyte abnormalities, no anion gap, no acute kidney injury. High-sensitivity troponin is negative, no evidence of myocardial ischemia COVID/RSV/flu negative Patient was ambulated here in the ED without significant hypoxia. There is no clear life-limiting etiology that can be ascertained. Given the patient's lower extremity edema but no signs of pulmonary edema, elevated BNP, ACS, PE she does not meet criteria for admission. Will increase her Lasix for neck 7 days and have her follow with her primary care physician for outpatient evaluation and treatment. Patient states he fell 100 mg of Lasix in the morning. I recommended take additional 40 mg of Lasix at night. Gave a IV dose here to start the process of diuresis. The patient and/or family, caregivers express understanding. The patient and/or family, caregivers agrees with the plan. Shared decision making: I will have a discussion with the patient and or visitors regarding risk/benefits of further testing or admission. They will be made aware of of the risk/benefits inherent in this decision they will be given the opportunity to voice understanding. Total critical care time today provided was at least 0 minutes. This excludes separately billable procedures. Critical care time (if documented) is secondary to the patient having high probability of clinically significant/life threatening deterioration in the patient's condition which required my urgent intervention. Impression: 1. Dyspnea 2. History of CHF 3. Lower extremity edema Dispo: Discharge This note was generated with [employer] dictation software. It may contain incorrect words, spelling, and punctuation that were not noted in review of the chart prior to signing Lab Data Labs: Laboratory Results - last 24 hr 02/11/25 16:00 WBC 5.7 RBC 3.58 L Hgb 10.9 L Hct 32.3 L MCV 90.2 MCH 30.4 MCHC 33.7 RDW Std Deviation 42.3 RDW Coeff of Kaity 12.8 Plt Count 191 MPV 9.7 Immature Gran % (Auto) 0.400 Neut % (Auto) 57.1 Lymph % (Auto) 31.3 Ware % (Auto) 8.0 Eos % (Auto) 2.8 Baso % (Auto) 0.4 Absolute Neuts (auto) 3.2 Absolute Lymphs (auto) 1.77 Nucleated RBC % 0 Sodium 141 Potassium 4.3 Chloride 101 Carbon Dioxide 30.1 H Anion Gap 11 BUN 21 H Creatinine 0.77 Estim Creat Clear Calc 112.03 Est GFR (MDRD) Non-Af 85 BUN/Creatinine Ratio 27.6 H Glucose 152 H Calcium 9.0 Troponin T High Sens 15 H D NT pro BNP II 203 Radiography Diagnostic Testing: Clinical Impression(s) from Imaging Studies Chest X-Ray 02/11/25 16:13 IMPRESSION: Mild bibasilar atelectasis. No focal consolidation. Reading [facility] Discharge Plan Triage Chief Complaint: Shortness of Breath ED Provider: Arsen Conner Dx/Rx/DC Orders Instructions: ED Peripheral Edema, Bilateral Prescriptions: New furosemide [Lasix] 40 mg tablet 40 mg PO DAILY 7 Days Qty: 7 0RF No Action furosemide 20 mg tablet 20 mg PO DAILY Rx Instructions: take one tab by mouth once daily. With daily dose of lasix 80mg pravastatin 40 mg tablet 40 mg PO DAILY gabapentin 600 mg tablet 600 mg PO BID potassium chloride 8 mEq capsule, extended release 8 meq PO DAILY hydrocodone-acetaminophen 7.5-325 mg tablet 1 - 2 tab PO Q4H PRN (Reason: pain) Rx Instructions: Not to exceed 4 tabs daily ascorbic acid PO DAILY duloxetine 60 MG capsule,delayed release(DR/EC) 60 mg PO DAILY aripiprazole 10 MG tablet 10 mg PO QHS famotidine 40 MG tablet 40 mg PO DAILY insulin glargine 100 unit/mL (3 mL) insulin pen 34 unit subcut DAILY trazodone 100 mg tablet 100 mg PO QHS MDD insomnia Patient Comments: take 1 tablet by mouth every evening spironolactone 50 mg tablet 25 mg PO DAILY Patient Comments: take 1 tablet by mouth once daily acetaminophen 650 mg tablet extended release 1,300 mg PO Q8H PRN (Reason: Pain) Patient Comments: take 2 tablets by mouth three times a day if needed Rx Instructions: Not in the same 8 hour period as [place] cholecalciferol (vitamin D3) [Vitamin D3] 125 mcg (5,000 unit) Tablet 125 mcg PO DAILY ibuprofen 200 mg Tablet 800 mg PO Q8H PRN (Reason: Fever) furosemide 80 mg tablet 80 mg PO DAILY Patient Comments: take 1 tablet by mouth once daily ropinirole 0.25 mg tablet 0.25 mg PO QHS Osteo Bi-Flex Triple Strength 750 mg-644 mg- 30 mg-1 mg tablet 1 tab PO BID hydroxyzine pamoate 25 mg capsule 25 mg PO TID PRN (Reason: anxiety) tizanidine 4 mg capsule 4 mg PO Q8H PRN (Reason: muscle spasticity) Primary Care Provider: Vincent Negro Referrals: Vincent Negro MD [Primary Care Provider, Medical] Activity Restrictions/Additional Instructions: Thank you for trusting us with your care today! Your test were reassuring. No sign of CHF, ACS, PNA, COVID/Flu/RSV. Please take additional 40 mg of Lasix back 7 days. Please return to the emergency department if your symptoms change or worsen. Please follow with your primary care physician for further outpatient evaluation and management. Print Language: [place] Disposition Disposition: Home, Self Care
--- NOTE | 2025-02-11 16:02 | EKG12_ITS ---
Test Reason : SOB Blood Pressure : */* mmHG Vent. Rate : 69 BPM Atrial Rate : 69 BPM P-R Int : 164 ms QRS Dur : 98 ms QT Int : 414 ms P-R-T Axes : 56 -1 109 degrees QTcB Int : 443 ms Normal sinus rhythm Left ventricular hypertrophy with repolarization abnormality ( R in aVL ) Abnormal ECG Confirmed by Dusty Willams ([id number]), telegraph editor ELSI RIVAS ([id number]) on 02/13/2025 8:01:05 AM Referred By: Confirmed By: Dusty Willams
--- OUTSIDE RECORDS SUMMARY | 2025-02-11 16:03 | XMS RPT_ITS | CCD ---
Author Organization [facility] Care Team Providers Care Lead Retail Sales Associate Name Role Phone CELSA ELIZONDO Unavailable Unavailable CELSA ELIZONDO Unavailable Unavailable Nehemiah Herbert Unavailable Unavailable Nehemiah Herbert Primary Care Provider Nehemiah Herbert MD Primary Care Provider Nehemiah Herbert MD Primary Care Provider [facility], [place] Unavailable Nehemiah Herbert MD Primary Care Provider [facility], [place] Unavailable Nehemiah Herbert MD Primary Care Provider [facility], [place] Unavailable Nehemiah Herbert MD Primary Care Provider [facility], [place] Unavailable Nehemiah Herbert MD Primary Care Provider Dr. Nehemiah Herbert Primary Care Provider Dr. Bart Prakash Emergency Provider Dr. Gudelia Barron Admit Provider Dr. Gudelia Barron Attending Provider Dr. Gudelia Barron Other Provider Dr. Adolfo Morgan Attending Provider Unavailable Dr. Adolfo Morgan Other Provider Unavailable Nehemiah Herbert MD Primary Care Provider Sanjay Abbasi PA-C Primary Care Provider Sanjay ABBASI Referring Unavailable Sanjay ABBASI Primary Care Unavailable KOJO ANDERSEN Attending Unavailable Dr. Nehemiah Herbert Primary Care Provider DEBRA Raphael Attending Provider DEBRA Raphael Other Provider SuppANA azar Joi Referring Provider Sanjay Abbasi PA-C Primary Care Provider Suppan WALLPAPER REMOVER STEAM.OIL FIELD ROUSTABOUT, Joi A Primary Care Provi lucho Suppan WALLPAPER REMOVER STEAM.OIL FIELD ROUSTABOUT, Joi A Primary Care Provi lucho Suppan WALLPAPER REMOVER STEAM.OIL FIELD ROUSTABOUT, Joi A Primary Care Provi lucho Dr. Nehemiah Herbert MD Primary Care Provider Teresa MATERNITY NURSE-C, Arpita E Attending Provider Teresa MATERNITY NURSE-C, Arpita E Referring Provider Teresa MATERNITY NURSE-C, Arpita E Other Provider Suppan WHITE SOURER, Joi Referring Provider Dr. Zain Anrdade DO Emergency Provider Suppan WHITE SOURER, Joi Primary Care Provider Nehemiah Herbert MD Primary Care Provider Haagen WALLPAPER REMOVER STEAM.Clarita SAMUEL Unavailable Suppan WALLPAPER REMOVER STEAM.OIL FIELD ROUSTABOUT, Joi A Unavailable Suppan WALLPAPER REMOVER STEAM.OIL FIELD ROUSTABOUT, Joi A Primary Care Provi lucho Nehemiah Herbert Primary Care Unavailable Teresa MATERNITY NURSE, Arpita E Attending Unavailabl e Teresa MATERNITY NURSE, Arpita E Referring Unavailabl e Teresa MATERNITY NURSE, Arpita E Consulting Unavailabl Zain Price Attending Unavailable Suppan, Joi Primary Care Unavailable Suppan, Joi Referring Unavailable Nehemiah Herbert Primary Care Unavailable Teresa MATERNITY NURSE, Arpita E Attending Unavailabl e Suppan, Joi Referring Unavailable Nehemiah Herbert Primary Care Unavailable Sania Raphael Attending Unavailable PiedadNehemiah Primary Care Unavailable Suppan, Joi Referring Unavailable Teresa MATERNITY NURSE, Arpita Bolton Attending Unavailabl e Suppan, Joi Referring Unavailable Sania Raphael Consulting Unavailable Sania Raphael Attending Unavailable [place] Primary Care Unavailable [place], Nehemiah Primary Care Unavailable Teresa MATERNITY NURSE, Arpita Bolton Consulting Unavailabl e Teresa MATERNITY NURSE, Arpita E Attending Unavailabl e Teresa MATERNITY NURSE, Arpita E Referring Unavailabl e SUPPAN, JOI A Primary Care Unavailable ANTONIO GHOSH Attending Unavailable SUPPAN, JOI A Primary Care Unavailable ALEAH DRISCOLL Attending Unavailable NEHEMIAH HERBERT Referring Unavailable PIEDAD, NEHEMIAH Alfredo Primary Care Unavailable PIEDADNEHEMIAH Brito Attending Unavailable SUPPAN, JOI A Referring Unavailable PIEDADNEHEMIAH Brito Primary Care Unavailable PIEDAD, NEHEMIAH Alfredo Referring Unavailable PIEDADNEHEMIAH Brito Primary Care Unavailable PIEDADNEHEMIAH Brito Attending Unavailable PIEDADNEHEMIAH Brito Primary Care Unavailable VERO [place]ILLS Attending Unavailable PIEDADNEHEMIAH Brito Primary Care Unavailable SUPPAN, JOI A Attending Unavailable PIEDADNEHEMIAH Brito Primary Care Unavailable SUPPAN, JOI A Attending Unavailable SUPPAN, JOI A Primary Care Unavailable SUPPAN, JOI A Referring Unavailable SUPPAN, JOI A Primary Care Unavailable PIEDADNEHEMIAH Brito Referring Unavailable PIEDADNEHEMIAH Brito Primary Care Unavailable SUPPAN, JOI A Attending Unavailable SUPPAN, JOI A Primary Care Unavailable SUPPAN, JOI A Referring Unavailable SUPPAN, JOI A Primary Care Unavailable [place] Attending Unavailable SUPPAN, JOI A Referring Unavailable PIEDADNEHEMIAH Brito Primary Care Unavailable PIEDADNEHEMIAH Brito Attending Unavailable PIEDADNEHEMIAH Brito Primary Care Unavailable PIEDADNEHEMIAH Brito Attending Unavailable SUPPAN, JOI A Primary Care Unavailable Allergies Allergy Classification Reported Allergen(s) Allergy Type Date of Onset Reaction(s) Facility Aminoketones (2 sources) buPROPion Drug Allergy 08-13-19 Intolerance [facility] amLODIPine (2 sources) amLODIPine Drug Allergy 04-25-19 09 Swelling [facility] Angiotensin Converting Enzyme (LIANG) Inhibitors (2 sources) quinapril Drug Allergy 08-13-19 06 Intolerance [facility] Work Phone: Atenolol (2 sources) Atenolol Drug Allergy 09-30-19 11 Swelling [facility] dulaglutide (2 sources) dulaglutide Drug Allergy 05-10-19 24 Intolerance [facility] Work Phone: Glycopeptides (antibiotic) (2 sources) Vancomycin Drug Allergy 08-11-19 18 Itching, Other: See Comments, Rash [facility] Work Phone: HMG-CoA Reductase Inhibitors (statins) (2 sources) atorvastatin Drug Allergy 11-02-19 18 Intolerance [facility] Metoprolol (2 sources) Metoprolol Drug Allergy 09-22-19 10 Swelling [facility] Mirtazapine (2 sources) Mirtazapine Drug Allergy 11-26-19 21 Rash [facility] NSAIDs (4 sources) celecoxib Drug Allergy 08-13-19 06 Swelling, GI Upset [facility] pregabalin (2 sources) pregabalin Drug Allergy 08-06-19 13 Anaphylaxis [facility] Work Phone: QUEtiapine (2 sources) QUEtiapine Drug Allergy 10-06-19 07 [facility] risperiDONE (2 sources) risperiDONE Drug Allergy 12-23-19 10 Mental Status Change [facility] rofecoxib (2 sources) rofecoxib Drug Allergy 08-13-19 06 GI Upset [facility] Serotonin Reuptake Inhibitors (SSRIs) (2 sources) FLUoxetine Drug Allergy 08-13-19 06 Intolerance [facility] SITagliptin (2 sources) SITagliptin Drug Allergy 09-21-19 12 GI Upset, Other: See Comments [facility] Thiazolidinediones (glitazones) (2 sources) pioglitazone Drug Allergy 05-15-19 21 Swelling [facility] venlafaxine (2 sources) venlafaxine Drug Allergy 09-23-19 06 [facility] Work Phone: (20 sources) amLODIPine; Translations: [AMLODIPINE] Drug Allergy 04-25-19 09 Swelling [facility] Repository (20 sources) atenolol; Translations: [ATENOLOL] Drug Allergy 09-30-19 11 Swelling [facility] Repository (20 sources) buPROPion; Translations: [BUPROPION HCL] Drug Allergy 08-13-19 06 Intolerance [facility] Repository (20 sources) FLUoxetine; Translations: [FLUOXETINE HCL] Drug Allergy 08-13-19 06 Other (See Comments), Intolerance [facility] Repository (20 sources) meloxicam; Translations: [MELOXICAM] Drug Allergy 08-13-19 06 Nausea And Vomiting, GI Upset [facility] Repository (20 sources) metoprolol; Translations: [METOPROLOL] Drug Allergy 09-22-19 10 Swelling [facility] Repository (20 sources) pregabalin; Translations: [PREGABALIN] Drug Allergy 08-06-19 13 Anaphylaxis [facility] Repository (20 sources) QUEtiapine; Translations: [QUETIAPINE FUMARATE] Drug Allergy 10-06-19 07 Unknown [facility] Repository (20 sources) quinapril; Translations: [QUINAPRIL HCL] Drug Allergy 08-13-19 06 Other (See Comments), Intolerance [facility] Repository (20 sources) risperiDONE; Translations: [RISPERIDONE] Drug Allergy 12-23-19 10 Other (See Comments), Mental Status Change [facility] Repository (20 sources) rofecoxib; Translations: [ROFECOXIB] Drug Allergy 08-13-19 06 GI Upset [facility] Repository (20 sources) SITagliptin; Translations: [SITAGLIPTIN] Drug Allergy 09-21-19 12 Other (See Comments), GI Upset, Other: See Comments [facility] Repository (20 sources) venlafaxine; Translations: [VENLAFAXINE HCL] Drug Allergy 09-23-19 06 Unknown [facility] Repository (6 sources) atorvastatin; Translations: [ATORVASTATIN] Drug Allergy 11-02-19 18 [place], [place] (4 sources) buPROPion Drug Allergy 08-13-19 06 Other (See Comments) [place] (4 sources) Seasonal allergy Propensity to adverse reactions to substance 11-25-19 17 [place] (20 sources) Vancomycin; Translations: [VANCOMYCIN] Drug Allergy 08-11-19 18 Itching, Other: See Comments, Rash [place] (4 sources) venlafaxine Drug Allergy 09-29-19 17 [place] (4 sources) Risperidone And Related Propensity to adverse reactions to drug 09-29-19 17 [place] (20 sources) celecoxib; Translations: [CELECOXIB] Drug Allergy 11-26-19 Swelling [facility] (20 sources) Mirtazapine; Translations: [MIRTAZAPINE] Drug Allergy 11-26-19 Rash [facility] Work Phone: (20 sources) pioglitazone; Translations: [PIOGLITAZONE] Drug Allergy 05-15-19 Swelling [facility] Work Phone: (1 source) QUEtiapine Drug Allergy 10-30-19 [facility] Work Phone: (20 sources) atorvastatin Drug Allergy 11-02-19 18 Intolerance [facility] (7 sources) SITagliptin; Translations: [sitagliptin phosphate] Drug Allergy 03-02-19 23 Unknown [facility] (20 sources) dulaglutide; Translations: [DULAGLUTIDE] Drug Allergy 05-10-19 Intolerance [facility] Work Phone: (1 source) atorvastatin Drug Allergy 04-26-19 25 [facility] Repository (1 source) Vancomycin Drug Allergy 04-26-19 25 [facility] Repository Medications Current Medications Medication Drug Class(es) Dates Sig (Normalized) Sig (Original) 8 hr acetaminophen 650 mg extended release oral tablet (20 sources) Start: 11-07-2022 End: 08-10-2023 take 2 tablets by mouth every eight hours as needed for pain acetaminophen (ARTHRITIS PAIN RELIEF) 650 mg CR tablet Indications: Pressure injury of elbow, stage 3, unspecified laterality (HCC) Take 2 tablets by mouth every 8 hours as needed for pain. Not in same 8h period as [place] (hydrocodone Tylenol) 200 Each 5 08/10/2023 Active Start: 08-07-2022 End: 09-06-2022 take 1 tablet by mouth every six hours as needed ARTHRITIS PAIN RELIEF 650 mg CR tablet Take 1 tablet by mouth every 6 hours as needed. 120 tablet 3 08/07/2022 09/06/2022 Active Start: 03-20-2022 End: 04-19-2022 take 1 tablet by mouth every six hours as needed ARTHRITIS PAIN RELIEF 650 mg CR tablet Take 1 tablet by mouth every 6 hours as needed. 120 tablet 3 03/20/2022 04/19/2022 Active Start: 10-03-2021 End: 11-02-2021 take 1 tablet by mouth every six hours as needed ARTHRITIS PAIN RELIEF 650 mg CR tablet Take 1 tablet by mouth every 6 hours as needed. 120 tablet 3 10/03/2021 11/02/2021 Active Start: 04-22-2021 End: 05-22-2021 take 1 tablet by mouth every six hours as needed ARTHRITIS PAIN RELIEF 650 mg CR tablet Take 1 tablet by mouth every 6 hours as needed. 120 tablet 3 04/22/2021 05/22/2021 Active Start: 09-14-2020 acetaminophen (TYLENOL) 650 MG extended release tablet Take by mouth 0 09/14/2020 Active Start: 09-14-2020 take 1 tablet by berna th three times daily as needed for pain Acetaminophen 650 mg tablet extended release Active 650 mg PO THREE TIMES A DAY as needed for Pain September 13, 2020 11:00pm Comment on above: Take 1 tablet by berna th every 6 hours as needed. Take 2 tablets by mo ut every 8 hours as needed. Take 2 tablets by mo uth every 8 hours as needed for pain. Not in same 8h period as [place] (hydrocodone Tylenol) acetaminophen 325 mg / HYDROcodone bitartrate 7.5 mg oral tablet (20 sources) Opioid Agonist Start: End: take 1 tablet by mouth twice daily as needed for pain HYDROcodone-Acetaminop hen (NORCO) 7.5-325 mg per tablet Indications: Pain disorder with psychological factors , DDD (degenerative disc disease), cervical , Lumbar facet arthropathy , Diffuse myofascial pain syndrome , DDD (degenerative disc disease), lumbar Take 1 tablet by mouth two times a day as needed for pain for up to 30 days. 60 tablet 10/10/2024 11/09/2024 Active Start: 08-18-2024 End: 09-17-2024 take 1 tablet by mouth twice daily as needed for pain HYDROcodone-Acetaminophen (NORCO) 7.5-32 5 mg per tablet Indications: Pain disorder with psychological factors , DDD (degenerative disc disease), cervical , Lumbar facet arthropathy , Diffuse myofascial pain syndrome , DDD (degenerative disc disease), lumbar Take 1 tablet by mouth two times a day as needed for pain for up to 30 days. 60 tablet 08/18/2024 09/17/2024 Active Start: 02-26-2023 End: 08-18-2024 take 1 tablet by mouth twice daily as needed for pain HYDROcodone-acetaminophen (NORCO) 5-325 mg per tablet Indications: DDD (degenerative disc disease), cervical , Lumbar facet arthropathy , Diffuse myofascial pain syndrome , Pain disorder with psychological factors , DDD (degenerative disc disease), lumbar Take 1 tablet by mouth two times a day as needed for pain for up to 30 days. 60 tablet 07/04/2024 08/18/2024 Discontinued Start: 12-29-2022 End: 02-23-2023 take 1 tablet by mouth twice daily as needed for pain HYDROcodone-acetaminophen (NORCO) 5-325 mg per tablet Indications: DDD (degenerative disc disease), lumbar Take 1 tablet by mouth two times a day as needed for pain for up to 30 days. 60 tablet 0 01/24/2023 02/23/2023 Active Start: 10-27-2022 End: 12-27-2022 take 1 tablet by mouth twice daily as needed for pain HYDROcodone-acetaminophen (NORCO) 5-325 mg per tablet Indications: DDD (degenerative disc disease), lumbar Take 1 tablet by mouth two times a day as needed for pain for up to 30 days. 60 tablet 0 11/27/2022 Active Start: 09-25-2022 End: 10-25-2022 take 1 tablet by mouth twice daily as needed for pain HYDROcodone-acetaminophen (NORCO) 5-325 mg per tablet Indications: DDD (degenerative disc disease), lumbar Take 1 tablet by mouth twice daily as needed for pain for up to 30 days. 60 tablet 0 09/25/2022 10/25/2022 Active Start: 08-23-2022 End: 09-22-2022 take 1 tablet by mouth twice daily as needed for pain HYDROcodone-acetaminophen (NORCO) 5-325 mg per tablet Indications: DDD (degenerative disc disease), lumbar Take 1 tablet by mouth twice daily as needed for pain for up to 30 days. 60 tablet 0 08/23/2022 09/22/2022 Discontinued Start: 08-12-2021 End: 08-21-2022 take 1 tablet by mouth twice daily as needed for pain HYDROcodone-acetaminophen (NORCO) 5-325 mg per tablet Indications: DDD (degenerative disc disease), lumbar Take 1 tablet by mouth twice daily as needed for pain for up to 30 days. 60 tablet 0 07/20/2022 08/21/2022 Discontinued Start: 04-04-2021 End: 05-26-2021 take 1 tablet by mouth twice daily as needed for pain HYDROcodone-acetaminophen (NORCO) 5-325 mg per tablet Indications: DDD (degenerative disc disease), lumbar Take 1 tablet by mouth twice daily as needed for pain for up to 3 days. 60 tablet 0 04/04/2021 05/26/2021 Discontinued Start: 06-29-2020 End: 01-25-2021 take 1 tablet by mouth twice daily as needed for pain HYDROcodone-acetaminophen (NORCO) 5-325 mg per tablet Indications: DDD (degenerative disc disease), lumbar Take 1 tablet by mouth twice daily as needed for pain for up to 3 days. 60 tablet 0 11/03/2020 01/25/2021 Discontinued Start: 06-29-2020 take 1 tablet by berna th twice daily Hydrocodone-Acetaminophen Active 1 TABLE T PO TWICE A DAY June 29, 2020 12:00am Start: 12-05-2018 End: 12-10-2018 take 1 tablet by mouth every six hours for pain HYDROcodone-acetaminophen (NORCO) 5-325 MG per tablet take 1 tablet by mouth every 6 hours if needed for pain for 5 days 0 12/11/2018 Active Start: 01-02-2017 End: 12-05-2018 HYDROcodone-acetaminophen (N ORCO) 5-325 MG per tablet TAKE ONE TABLET TWICE DAILY 0 01/02/2017 12/05/2018 Discontinued (Stop Taking at Discharge) Comment on above: Take 1 tablet by berna th twice daily as needed for pain for up to 3 days. Take 1 tablet by berna th twice daily as needed for pain for up to 30 days. Take 1 tablet by berna th two times a day as needed for pain for up to 30 days. acetaminophen 325 mg / oxyCODONE hydrochloride 5 mg oral tablet (3 sources) Opioid Agonist Start: 4 End: 4 take 1 tablet by mouth every eight hours as needed for pain oxyCODONE-acetaminoph en (PERCOCET) 5-325 mg tablet Indications: Herpes zoster without complication Take 1 tablet by mouth every 8 hours as needed for pain for up to 14 days. Hold hydrocodone while on Percocet 42 tablet 0 09/12/2023 09/26/2023 Active Start: 03-12-2021 End: 03-12-2021 oxyCODONE-acetaminophen (PER COCET) 5-325 MG per tablet 1 tablet Adhesive Bandage ([place] DRESSING) 6 X 6 bndg (20 sources) Start: 10-20-2022 Adhesive [place] ([place] DRESSING) 6 X 6 bndg Indications: Pressure injury of skin of thigh, unspecified injury stage, unspecified laterality Apply to affected area once daily. 30 Each 2 10/20/2022 Active Start: 10-10-2022 End: 10-20-2022 Adhesive Bandage ([place] DRESSING) 6 X 6 bndg Indications: Pressure injury of skin of thigh, unspecified injury stage, unspecified laterality Apply to affected area once daily. 30 Each 2 10/10/2022 10/20/2022 Discontinued Start: 10-10-2022 Adhesive [place] ([place] DRESSING) 6 X 6 bndg Indications: Pressure injury of skin of thigh, unspecified injury stage, unspecified laterality Apply to affected area once daily. 30 Each 2 10/10/2022 Active Comment on above: Apply to affected ar ea once daily. [id number] 200 actuat albuterol 0.09 mg/actuat metered dose inhaler (20 sources) beta2-Adrenergic Agonist Start: 05-17-2023 Albuterol Sulfate 90 mcg/actuation HFA aerosol inhaler Active 2 NMA INHALATION Q4H as needed for shortness of breath or wheezing May 16, 2023 11:00pm Start: 05-17-2023 Albuterol Sulf ate Active 2 INH INHALATION Q4H May 17, 2023 12:00am Start: 05-08-2022 End: 05-10-2023 take 2 puff(s) by inhalation every four hours as needed for wheezing albuterol HFA (VENTOLIN HFA) 90 mcg/actuation inhaler Indications: Acute upper respiratory infection Inhale 2 Puffs as instructed every 4 hours as needed for wheezing/shortness of breath. 3 Each 1 12/19/2022 05/10/2023 Discontinued (Discontinued by Patient) Start: 03-12-2021 End: 03-12-2021 albuterol (PROVENTIL) nebuli zer solution 2.5 mg Comment on above: Inhale 2 Puffs as in structed every 4 hours as needed for wheezing/shortness of breath. amoxicillin 875 mg / clavulanate 125 mg oral tablet (1 source) Penicillin-class Antibacterial Start: 04-30-19 End: 05-05-19 take 1 tablet by mouth twice daily amoxicillin-clavul anate potassium (AUGMENTIN) 875-125 mg per tablet Indications: Acute maxillary sinusitis, recurrence not specified Take 1 tablet by mouth two times a day for 5 days. 10 tablet 04/29/2024 05/04/2024 Active apixaban 5 mg oral tablet (9 sources) Factor Xa Inhibitor Start: 07-11-19 take 1 tablet by mouth twice daily ELIQUIS 5 MG TABS tablet take 1 tablet by mouth twice a day 0 07/10/2018 Active Start: 06-15-2018 End: 04-09-2019 Apixaban 5 MG tablets,dose p ack Discontinued 5 mg PO DIRECTED June 14, 2018 11:00pm April 09, 2019 9:14am take 10mg bid x 7 days, (till June 19, 2018), then continue with 5mg bid Start: 06-15-2018 End: 04-09-2019 Apixaban Discontinued 5 MG P O DIRECTED June 15, 2018 12:00am April 09, 2019 10:14am take 10mg bid x 7 days, (till June 19, 2018), then continue with 5mg bid ARIPiprazole 10 mg oral tablet (20 sources) Atypical Antipsychotic Start: 08-28-2022 End: 10-06-2022 take 1 tablet by mouth once daily ARIPiprazole (ABILIFY) 2 mg tablet Indications: Dysthymia , Major depressive disorder, recurrent episode, moderate (HCC) Take 1 tablet by mouth once daily. 30 tablet 5 08/28/2022 10/06/2022 Discontinued (Dosage adjustment) Start: 05-08-2022 take 1 tablet by berna th once daily ARIPiprazole (ABILIFY) 2 mg tablet Indications: Dysthymia , Major depressive disorder, recurrent episode, moderate (HCC) Take 1 tablet by mouth once daily. 30 tablet 0 05/08/2022 Active Start: 04-20-2022 End: 09-05-2023 take 1 tablet by mouth once daily ARIPiprazole (ABILIFY) 5 mg tablet Take 1 tablet by mouth once daily. 30 tablet 5 09/05/2022 09/05/2023 Active Start: 01-10-2016 End: 01-12-2025 take 1 tablet by mouth once daily ARIPiprazole (ABILIFY) 10 mg tablet Take 1 tablet by mouth once daily. 90 tablet 3 10/14/2024 01/12/2025 Active Comment on above: Take 1 tablet by berna th once daily. ascorbic acid 1500 mg extended release oral tablet (20 sources) Vitamin C Start: 05-17-2023 take 1 tablet by mouth once daily Ascorbic Acid (Vitamin C) 1,500 mg tablet extended release Active 1500 mg PO DAILY May 16, 2023 11:00pm take 1 tablet by mouth once roseanna y ascorbic acid (VITAMIN C ORAL) Take 1 tablet by mouth once daily. Active take 1 tablet by mouth once roseanna y ascorbic acid (VITAMIN C ORAL) Take 1 tablet by mouth once daily. 0 Suspended take 1 tablet by mouth once roseanna y ascorbic acid (VITAMIN C ORAL) Take 1 tablet by mouth once daily. 0 Active take 1 tablet by mouth once roseanna y Ascorbic Acid (VITAMIN C) 100 MG tablet Take 1 tablet by mouth daily 0 Active Comment on above: Take 1 tablet by berna once daily. Blood-Glucose Meter,Continuous (DEXCOM G7 ADVANCED REGISTERED NURSE) misc (20 sources) Start: 03-17-2024 Blood-Glucose Meter,Continuous (DEXCOM G7 ADVANCED REGISTERED NURSE) misc Indications: Type 2 diabetes mellitus with peripheral neuropathy (HCC) Use to check blood sugar at least four (4) times daily. 1 Each 03/17/2024 Active Start: 03-13-2024 End: 03-17-2024 Blood-Glucose Meter,Continuo us (DEXCOM G7 ADVANCED REGISTERED NURSE) misc Indications: Type 2 diabetes mellitus with peripheral neuropathy (HCC) Use to check blood sugar at least four (4) times daily. 1 Each 03/13/2024 03/17/2024 Discontinued Start: 03-13-2024 Blood-Glucose Meter,Continuous (DEXCOM G7 ADVANCED REGISTERED NURSE) misc Indications: Type 2 diabetes mellitus with peripheral neuropathy (HCC) Use to check blood sugar at least four (4) times daily. 1 Each 03/13/2024 Active Blood-Glucose Sensor (DEXCOM G7 SENSOR) jessica (20 sources) Start: 03-17-2024 Blood-Glucose Sensor (DEXCOM G7 SENSOR) jessica Indications: Type 2 diabetes mellitus with peripheral neuropathy (HCC) Apply new sensor every ten (10) days. 9 Each 3 03/17/2024 Active Start: 03-13-2024 End: 03-17-2024 Blood-Glucose Sensor (DEXCOM G7 SENSOR) jessica Indications: Type 2 diabetes mellitus with peripheral neuropathy (HCC) Apply new sensor every ten (10) days. 9 Each 3 03/13/2024 03/17/2024 Discontinued Start: 03-13-2024 Blood-Glucose Sensor (DEXCOM G7 SENSOR) jessica Indications: Type 2 diabetes mellitus with peripheral neuropathy (HCC) Apply new sensor every ten (10) days. 9 Each 3 03/13/2024 Active cetirizine hydrochloride 10 mg oral tablet (4 sources) Histamine-1 Receptor Antagonist cetirizine (ZYRTEC) 10 MG tablet Take 10 mg by mouth as needed for Allergies 0 Active cholecalciferol 0.125 mg oral capsule (20 sources) Vitamin D Start: 03-02-19 take 1 tablet by mouth once daily Cholecalciferol (Vitamin D3) (Vitamin D3) 125 mcg (5,000 unit) Tablet Active 125 ug PO DAILY March 02, 2022 12:00am Start: 01-18-2021 End: 10-13-2024 take 1 capsule by mouth once daily Cholecalciferol, Vitamin D3, 125 mcg (5,000 unit) cap Take 1 capsule by mouth once daily. 90 capsule 3 10/14/2024 Active Start: 04-09-2019 End: 03-14-2021 take 1 capsule by mouth once daily Cholecalciferol (Vitamin D3) 50 mcg (2,000 unit) capsule Discontinued 5000 U PO DAILY April 09, 2019 12:00am March 14, 2021 12:11pm Cholecalciferol (VITAMIN D) 2000 units CAPS capsule Take by mouth daily 0 Active Comment on above: Take 1 capsule by mo ut once daily. CPAP/BIPAP/OTHER (11 sources) Start: 025 End: 05 CPAP/BIPAP/OTHER Auto biPAP IPAP max 25, EPAP min 12, PS 5 cmH2O DME [facility] 1 each 08/24/2024 01/09/2052 Active cyclobenzaprine (4 sources) Muscle Relaxant Cyclobenzaprine HCl (FLEXERIL PO) Take by mouth 3 times daily as needed 0 Active Disposable Gloves (DISPOSABLE LATEX-FREE GLOVES) misc (20 sources) Start: Disposable Gloves (DISPOSABLE LATEX-FREE GLOVES) misc Indications: Debility 1 Box once every month. 3 Each 02/26/2023 Active Comment on above: 1 Box once every sun. doxycycline hyclate 100 mg oral tablet (2 sources) Tetracycline-class Drug Start: End: take 1 tablet by mouth twice daily doxycycline (VIBRA-TABS) 100 mg tablet Indications: Rhinosinusitis Take 1 tablet by mouth two times a day for 7 days. 14 tablet 04/14/2024 04/21/2024 Active DULoxetine 60 mg delayed release oral capsule (20 sources) Serotonin and Norepinephrine Reuptake Inhibitor Start: 025 End: take 1 capsule by mouth once daily DULoxetine (CYMBALTA) 60 mg capsule Indications: Anxiety state Take 1 capsule by mouth once daily. 90 capsule 1 06/18/2024 Active Start: 12-02-2014 End: 06-02-2024 take 1 capsule by mouth once daily DULoxetine (CYMBALTA) 60 mg capsule Indications: Anxiety state Take 1 capsule by mouth once daily. 90 capsule 1 11/09/2023 06/02/2024 Discontinued (Discontinued by Patient) Comment on above: Take 1 capsule by [facility] once daily. 0.4 ml enoxaparin sodium 100 mg/ml prefilled syringe (1 source) Low Molecular Weight Heparin Start: 9 inject 40 mg by subcutaneous injection once daily 40 mg, Subcutaneous, DAILY, First dose on Anna 12/05/18 at 0900, Post-op famotidine 40 mg oral tablet (20 sources) Histamine-2 Receptor Antagonist Start: 0 End: 5 take 1 tablet by mouth once daily famotidine (PEPCID) 40 mg tablet Take 1 tablet by mouth once daily. 90 tablet 3 10/14/2024 Active Start: 12-04-2018 End: 12-04-2018 take 20 mg by mouth twice daily 20 mg, Oral, 2 TIMES D AILY, First dose on Sun12/04/18 at 2100 Substituted for Ranitidine (ZANTAC). Comment on above: Take 1 tablet by berna once daily. fluconazole 100 mg oral tablet (1 source) Azole Antifungal Start: 2 End: 2 take 1 tablet by mouth once daily fluconazole (DIFLUCAN) 100 mg tablet Indications: Tinea corporis Take 1 tablet by mouth once daily for 3 days. 3 tablet 0 06/21/2021 06/24/2021 Active Comment on above: Take 1 tablet by berna th once daily for 3 days. fluticasone propionate 0.05 mg/actuat metered dose nasal spray (11 sources) Corticosteroid Start: 3 End: 4 take 2 spray(s) by mouth once daily fluticasone (FLONASE) 50 mcg/actuation nasal spray Use 2 Sprays in each nostril once daily. Rinse mouth after use. 3 Each 2 12/19/2022 03/19/2023 Active Comment on above: Use 2 Sprays in each nostril once daily. Rinse mouth after use. furosemide 80 mg oral tablet (20 sources) Loop Diuretic Start: 2 End: 5 take 1 tablet by mouth once daily furosemide (LASIX) 80 mg tablet Indications: Essential hypertension, benign Take 1 tablet by mouth once daily. 90 tablet 3 12/31/2023 12/30/2024 Active Start: 03-14-2021 End: 03-02-2022 take 1 tablet by mouth twice daily at mealtime Furosemide 80 mg tablet Discontinued 80 mg PO TWICE DAILY WITH MEALS 0 March 14, 2021 11:55am March 02, 2022 2:13pm Start: 03-12-2021 End: 03-12-2021 furosemide (LASIX) injection 80 mg Start: 09-14-2020 End: 06-06-2021 take 1 tablet by mouth once daily Furosemide 80 mg tablet Discontinued 80 mg PO DAILY September 13, 2020 11:00pm March 14, 2021 11:56am Start: 05-29-2017 End: 11-25-2018 take 1 tablet by mouth once daily furosemide (LASIX) 20 MG tablet Indications: SVT (supraventricular tachycardia) (HCC) Take 1 tablet by mouth daily 30 tablet 3 05/29/2017 11/25/2018 Discontinued (Therapy completed) Comment on above: Take 1 tablet by berna th once daily. Take 1 tablet by berna th twice daily. gabapentin 600 mg oral tablet (20 sources) Anti-epileptic Agent Start: 06-02-2024 End: 11-29-2024 take 1 tablet by mouth twice daily gabapentin (NEURONTIN) 600 mg tablet Indications: Type 2 diabetes mellitus with peripheral neuropathy (HCC) Take 1 tablet by mouth two times a day for 180 days. 180 tablet 1 06/02/2024 11/29/2024 Active Start: 09-12-2023 End: 11-09-2023 take 1 capsule by mouth three times daily gabapentin (NEURONTIN) 100 mg capsule Indications: Herpes zoster without complication Take 1 capsule by mouth three times a day for 14 days. Take the 100 mg with your 600 mg tablets TID. 42 capsule 09/12/2023 11/09/2023 Discontinued (Discontinued by Patient) Start: 05-29-2023 End: 06-02-2024 take 1 tablet by mouth three times daily gabapentin (NEURONTIN) 600 mg tablet Indications: Type 2 diabetes mellitus with peripheral neuropathy (HCC) Take 1 tablet by mouth three times a day for 180 days. 270 tablet 1 09/28/2023 06/02/2024 Discontinued Start: 07-27-2022 End: 12-19-2023 take 1 capsule by mouth twice daily gabapentin (NEURONTIN) 300 mg capsule Indications: DDD (degenerative disc disease), cervical Take 1 capsule by mouth two times a day. 180 capsule 1 12/19/2022 05/29/2023 Discontinued Start: 03-02-2022 take 1 capsule by mo uth every twelve hours Gabapentin 300 mg capsule Active 300 mg PO Q12H March 02, 2022 12:00am Start: 11-17-2021 End: 08-20-2022 take 1 capsule by mouth once daily at bedtime gabapentin (NEURONTIN) 300 mg capsule Indications: DDD (degenerative disc disease), cervical Take 1 capsule by mouth daily at bedtime for 90 days. 30 capsule 2 05/22/2022 07/27/2022 Discontinued Start: 08-01-2017 End: 06-29-2020 take 1 capsule by mouth three times daily Gabapentin 300 capsule Discontinued 300 mg PO THREE TIMES A DAY July 31, 2017 11:00pm June 29, 2020 7:18am Start: 03-19-2017 take 1 capsule by mo ut twice daily gabapentin (NEURONTIN) 300 MG capsule Indications: Diabetes mellitus without complication (HCC) Take 1 capsule by mouth 2 times daily for 60 days. 90 capsule 3 03/19/2017 Active Comment on above: Take 1 capsule by mo uth daily at bedtime for 90 days. Take 1 capsule by mo ut twice daily. Take 1 capsule by mo uth two times a day. Take 1 tablet by berna three times a day for 90 days. glucagon (rdna) 1 mg injection (1 source) Antihypoglycemic Agent Start: 9 glucagon (rDNA) injection 1 mg nxpiijlv-uclb-cro9 -C-gio-bosw (OSTEO BI-FLEX TRIPLE STRENGTH) 750 mg-644 mg- 30 mg-1 mg tab (20 sources) Start: take 1 tablet by mouth twice daily cpwfkfwk-ldlh-ylc6 -C-gio-bosw (OSTEO BI-FLEX TRIPLE STRENGTH) 750 mg-644 mg- 30 mg-1 mg tab Take 1 tablet by mouth two times a day. 180 tablet 3 12/31/2023 Active Start: 12-19-2022 End: 12-31-2023 take 1 tablet by mouth twice daily yvblamcm-swxk-ulm2-C-gio-bosw (OSTEO BI -FLEX TRIPLE STRENGTH) 750 mg-644 mg- 30 mg-1 mg tab Take 1 tablet by mouth two times a day. 180 tablet 3 12/19/2022 12/31/2023 Discontinued Start: 12-19-2022 take 1 tablet by berna th twice daily kjlvhpnr-ujer-glg0-C-gio-bosw (OSTEO BI -FLEX TRIPLE STRENGTH) 750 mg-644 mg- 30 mg-1 mg tab Take 1 tablet by mouth two times a day. 180 tablet 3 12/19/2022 Active Start: 11-07-2022 End: 12-18-2022 take 1 tablet by mouth twice daily kkntnzei-plnh-ekl3-C-gio-bosw (OSTEO BI -FLEX TRIPLE STRENGTH) 750 mg-644 mg- 30 mg-1 mg tab Take 1 tablet by mouth twice daily. 80 tablet 5 11/07/2022 12/18/2022 Discontinued Start: 11-07-2022 take 1 tablet by berna th twice daily sqzjpmcz-apog-vxk5-C-gio-bosw (OSTEO BI -FLEX TRIPLE STRENGTH) 750 mg-644 mg- 30 mg-1 mg tab Take 1 tablet by mouth twice daily. 80 tablet 5 11/07/2022 Active Comment on above: Take 1 tablet by berna th twice daily. Take 1 tablet by berna th two times a day. Plgvvgoh-Tlmt-Kfa3-C-Ma ng-Bosw (Osteo Bi-Flex Triple Strength) 750 mg-644 mg- 30 mg-1 mg tablet (3 sources) Start: 05-17-2023 Fgrpcmqn-Qpmc-Rcu6-C-M ang-Bosw (Osteo Bi-Flex Triple Strength) 750 mg-644 mg- 30 mg-1 mg tablet Active 1 {tbl} PO TWICE A DAY May 16, 2023 11:00pm Start: 05-17-2023 take 1 tablet by berna twice daily Jqlyomgp-Qhlf-Fxp5-C-Gio-Bosw (Osteo Bi -Flex Triple Strength) 750 mg-644 mg- 30 mg-1 mg tablet Active 1 TABLET PO TWICE A DAY May 17, 2023 12:00am 150 ml glucose 50 mg/ml injection (3 sources) Start: 12-04-2018 glucose (GLUTO SE) 40 % oral gel 15 g Start: 12-04-2018 dextrose 50 % IV solution Start: 12-04-2018 dextrose 5 % s olution Handicap Placard MISC (4 sources) Start: 12-06-[address] MISC Indications: Arthritis by Does not apply route DX ARTHRITIS 3 YEARS 1 each 0 12/06/2016 Active hydrOXYzine pamoate 25 mg oral capsule (20 sources) Antihistamine Start: 05-17-2023 take 1 capsule by mouth every eight hours as needed for anxiety Hydroxyzine Pamoate 25 mg capsule Active 25 mg PO Q8H as needed for anxiety May 16, 2023 11:00pm Start: 08-28-2022 End: 03-13-2024 take 1 capsule by mouth three times daily as needed hydrOXYzine pamoate (VISTARIL) 25 mg capsule Indications: Anxiety with depression Take 1 capsule by mouth three times a day as needed. 30 capsule 2 03/13/2024 Active Comment on above: Take 1 capsule by mo uth three times daily as needed. Take 1 capsule by mo uth three times a day as needed. ibuprofen 800 mg oral tablet (20 sources) Nonsteroidal Anti-inflammatory Drug Start: 09-16-2024 End: 09-16-2025 take 1 tablet by mouth every eight hours as needed ibuprofen (MOTRIN) 800 mg tablet Take 1 tablet by mouth every 8 hours as needed for pain. Take with food. 90 tablet 11 09/16/2024 09/16/2025 Active Start: 09-06-2023 End: 09-05-2024 take 1 tablet by mouth every eight hours as needed ibuprofen (MOTRIN) 800 mg tablet Take 1 tablet by mouth every 8 hours as needed for pain. Take with food. 90 tablet 11 09/06/2023 09/05/2024 Active Start: 03-02-2022 take 4 tablets by mo uth every eight hours as needed for fever Ibuprofen 200 mg Tablet Active 800 mg PO Q8H as needed for Fever March 02, 2022 12:00am Start: 03-02-2022 take 800 mg by mouth every eight hours Ibuprofen Active 800 MG PO Q8H March 02, 2022 1:00am Start: 09-29-2020 take 1 tablet by berna th every eight hours as needed ibuprofen (MOTRIN) 800 mg tablet Take 1 tablet by mouth every 8 hours as needed (FOR PAIN. TAKE WITH FOOD). 30 tablet 0 09/29/2020 Active Comment on above: Take 1 tablet by berna th every 8 hours as needed (FOR PAIN. TAKE WITH FOOD). 3 ml insulin glargine 100 unt/ml pen injector (20 sources) Insulin Analog Start: 09-17-2024 End: 03-16-2025 insulin glargine (LANTUS SOLOSTAR U-100 INSULIN) 100 unit/mL (3 mL) Indications: Diabetes mellitus type 2 with ketoacidosis, uncontrolled (HCC) Inject 34 Units subcutaneously every morning. 10 each 2 09/17/2024 03/16/2025 Active Start: 09-01-2024 End: 02-28-2025 insulin glargine (LANTUS MAYLIN OSTAR U-100 INSULIN) 100 unit/mL (3 mL) Indications: Diabetes mellitus type 2 with ketoacidosis, uncontrolled (HCC) Inject 32 Units subcutaneously every morning. 10 each 2 09/01/2024 09/17/2024 Discontinued Start: 11-09-2023 End: 09-01-2024 insulin glargine (LANTUS MAYLIN OSTAR U-100 INSULIN) 100 unit/mL (3 mL) Indications: Diabetes mellitus type 2 with ketoacidosis, uncontrolled (HCC) Inject 30 Units subcutaneously every morning. 10 Each 2 11/09/2023 09/01/2024 Discontinued Start: 02-06-2022 End: 12-19-2023 insulin glargine (LANTUS MAYLIN OSTAR U-100 INSULIN) 100 unit/mL (3 mL) Inject 25 Units subcutaneously daily at bedtime. 24 mL 3 12/19/2022 12/19/2023 Active Start: 09-14-2020 End: 10-13-2021 insulin glargine (LANTUS MAYLIN OSTAR U-100 INSULIN) 100 unit/mL (3 mL) Inject 25 Units subcutaneously twice daily. 15 Pen 3 09/14/2020 10/13/2021 Discontinued Start: 11-08-2019 End: 11-09-2023 inject 35 [IU] by subcutaneous injection once daily Insulin Glargine 100 UNIT/ML insulin pen Active 35 U SQ DAILY November 07, 2019 11:00pm Start: 11-08-2019 End: 12-19-2023 insulin glargine (LANTUS MAYLIN OSTAR U-100 INSULIN) 100 unit/mL (3 mL) Inject 25 Units subcutaneously daily at bedtime. 24 mL 3 12/19/2022 05/10/2023 Discontinued Comment on above: Inject 25 Units subc utaneously twice daily. Inject 25 Units subc utaneously daily at bedtime. Inject 35 Units subc utaneously every morning. insulin lispro 100 unt/ml injectable solution (2 sources) Insulin Analog Start: 12-04-2018 insulin lispro (HUMALOG) injection vial 0-3 Units Miscellaneous Medical Supply (20 sources) Start: 09-07-2022 Miscellaneous Medical Supply Indications: Open wound of skin Collagen dressing 2x2 1 Each 3 09/07/2022 Active Start: 09-07-2022 End: 09-07-2022 Miscellaneous Medical Supply Indications: Open wound of skin Collagen dressing 2x2 1 Each 3 09/07/2022 09/07/2022 Discontinued Comment on above: Collagen dressing 2x 2 molnupiravir 200 mg capsule (2 sources) Start: End: take 4 capsules by mouth twice daily molnupiravir 200 mg capsule Indications: Suspected COVID-19 virus infection Take 4 capsules by mouth twice daily for 5 days. 40 capsule 0 09/21/2022 09/26/2022 Active Comment on above: Take 4 capsules by m [facility] twice daily for 5 days. morphine (PF) injection 3 mg (1 source) Start: morphine (PF) injection 3 mg nitrofurantoin, macrocrystals 25 mg / nitrofurantoin, monohydrate 75 mg oral capsule (1 source) Nitrofuran Antibacterial Start: End: take 1 capsule by mouth twice daily at mealtime nitrofurantoin monohydrate and macrocrystal (MACROBID) 100 mg capsule Take 1 capsule by mouth two times a day with meals for 7 days. 14 capsule 0 2023 01/22/2023 Active Comment on above: Take 1 capsule by [facility] two times a day with meals for 7 days. nystatin [id number] unt/ml topical cream (20 sources) Polyene Antifungal Start: 023 End: nystatin (MYCOSTATIN) cream Indications: Dermatitis Apply 1 application to affected area twice daily. 30 g 0 03/10/2022 04/09/2022 Active Start: 10-28-2021 End: 11-27-2021 nystatin (MYCOSTATIN) cream Apply 1 application to affected area twice daily. 30 g 0 10/28/2021 11/27/2021 Active Start: 11-10-2020 End: 02-15-2022 nystatin (MYCOSTATIN) powder Indications: Tinea corporis Apply 1 application to affected area four times daily. 60 g 1 11/10/2020 02/15/2022 Discontinued Start: 04-04-2018 End: 10-28-2021 nystatin (MYCOSTATIN) cream Apply 1 application to affected area twice daily. 1 Tube 1 04/04/2018 10/28/2021 Discontinued Comment on above: Apply 1 application to affected area twice daily. Apply 1 application to affected area four times daily. oxyCODONE (1 source) Opioid Agonist Start: 9 oxyCODONE (ROXICODONE) immediate release tablet 5 mg polyethylene glycol 3350 04297 mg powder for oral solution (20 sources) Osmotic Laxative Start: End: take 17 g by mouth once daily polyethylene glycol 3350 17 gram/dose powder Indications: Chronic constipation Take 17 g by mouth once daily. 510 g 5 09/28/2023 03/26/2024 Active Start: 11-23-2017 End: 09-06-2022 polyethylene glycol 3350 (UT RALAX, GLYCOLAX) 17 gram/dose powder Take 17 g by mouth once daily. 1 Bottle 11 11/23/2017 03/10/2022 Discontinued Comment on above: Take 17 g by mouth o nce daily. potassium chloride 8 meq extended release oral capsule (20 sources) Start: 06-19-2022 End: 10-14-2025 take 1 capsule by mouth once daily at breakfast potassium chloride SR (MICRO-K) 8 mEq cpER Take 1 capsule by mouth daily with breakfast. 90 capsule 3 10/14/2024 10/14/2025 Active Start: 09-14-2020 End: 06-03-2022 take 1 tablet by mouth once daily potassium chloride (K-TAB) 10 mEq tablet Take 1 tablet by mouth once daily. 30 tablet 1 04/04/2021 06/06/2021 Discontinued Start: 06-29-2020 take 1 capsule by mo [facility] once daily Potassium Chloride 10 mEq Capsule, Extended Release Active 10 meq PO DAILY June 28, 2020 11:00pm Start: 07-23-2017 End: 11-25-2018 take 1 capsule by mouth once daily potassium chloride (MICRO-K) 10 MEQ extended release capsule Indications: Depressive disorder take 1 capsule by mouth once daily 30 capsule 3 07/23/2017 11/25/2018 Discontinued (Therapy completed) Start: 12-02-2014 End: 03-08-2018 take 1 tablet by mouth once daily Potassium Chloride 10 MEQ tablet Discontinued 10 meq PO DAILY December 01, 2014 11:00pm March 08, 2018 9:37am Comment on above: Take 1 tablet by berna once daily. Take 1 capsule by mo [facility] daily with breakfast. pravastatin sodium 40 mg oral tablet (20 sources) HMG-CoA Reductase Inhibitor Start: End: take 1 tablet by mouth once daily at bedtime pravastatin (PRAVACHOL) 40 mg tablet Indications: Mixed hyperlipidemia Take 1 tablet by mouth daily at bedtime. 90 tablet 3 08/20/2024 08/20/2025 Active Start: 04-09-2019 End: 08-20-2024 take 1 tablet by mouth once daily at bedtime pravastatin (PRAVACHOL) 20 mg tablet Indications: Mixed hyperlipidemia Take 1 tablet by mouth daily at bedtime. 90 tablet 3 12/31/2023 08/20/2024 Discontinued Comment on above: Take 1 tablet by berna daily at bedtime. raNITIdine 150 mg oral tablet (4 sources) Histamine-2 Receptor Antagonist Start: 05-29-2017 take 1 tablet by mouth twice daily ranitidine (ZANTAC) 150 MG tablet Take 1 tablet by mouth 2 times daily 60 tablet 3 05/29/2017 Active rOPINIRole 0.25 mg oral tablet (20 sources) Nonergot Dopamine Agonist Start: 08-24-2022 End: 06-18-2024 take 1 tablet by mouth once daily at bedtime rOPINIRole (REQUIP) 0.25 mg tablet Take 1 tablet by mouth daily at bedtime. 90 tablet 1 06/18/2024 Active Start: 08-24-2022 End: 08-24-2022 take 1 tablet by mouth three times daily rOPINIRole (REQUIP) 0.25 mg tablet Take 1 tablet by mouth three times daily. 90 tablet 2 08/24/2022 08/24/2022 Discontinued Comment on above: Take 1 tablet by berna daily at bedtime. Take 1 tablet by berna th three times daily. semaglutide (OZEMPIC) 0.25 mg or 0.5 mg (2 mg/3 mL) pen (2 sources) Start: 025 End: semaglutide (OZEMPIC) 0.25 mg or 0.5 mg (2 mg/3 mL) pen Indications: Obstructive sleep apnea , Type 2 diabetes mellitus with peripheral neuropathy (HCC) , Morbid obesity with BMI of 70 and over, adult (HCC) Inject 0.25 mg subcutaneously one time a week. 6 mL 2 10/17/2024 10/17/2025 Active semaglutide, weight loss, (WEGOVY) 0.25 mg/0.5 mL pen injector (4 sources) Start: End: inject 0.5 mL by subcutaneous injection every week semaglutide, weight loss, (WEGOVY) 0.25 mg/0.5 mL pen injector Indications: Type 2 diabetes mellitus with peripheral neuropathy (HCC) , Morbid obesity (HCC) Inject 0.5 mL subcutaneously one time a week for 28 days. 2 mL 0 05/29/2023 06/26/2023 Active Comment on above: Inject 0.5 mL subcut aneously one time a week for 28 days. semaglutide, weight loss, (WEGOVY) 0.5 mg/0.5 mL pen injector (5 sources) Start: End: inject 0.5 mL by subcutaneous injection every week semaglutide, weight loss, (WEGOVY) 0.5 mg/0.5 mL pen injector Indications: Type 2 diabetes mellitus with peripheral neuropathy (HCC) , Morbid obesity (HCC) Inject 0.5 mL subcutaneously one time a week for 28 days. Patient should start on June 26, 2023. 2 mL 0 06/26/2023 07/24/2023 Active Comment on above: Inject 0.5 mL subcut aneously one time a week for 28 days. Patient should start on June 26, 2023. 3 ml sodium chloride 9 mg/ml injection (3 sources) Start: 019 10 mL, Intravenous, EVERY 12 HOURS SCHEDULED (2 times per day), First dose on Sun12/04/18 at 2100, Post-op Start: 12-04-2018 take 10 mL intravenous route o nce 10 mL, Intravenous, PRN, Line Care, Starting Sun12/04/18 at 1344 After every IV line use Post-op Start: 12-04-2018 End: 12-04-2018 sodium chloride flush 0.9 % injection 10 mL sodium chloride flush 0.9 % injection 3 mL (1 source) Start: 12-12-2018 sodium chloride flush 0.9 % injection 3 mL spironolactone 25 mg oral tablet (20 sources) Aldosterone Antagonist Start: 04-24-2022 End: 07-22-2025 take 1 tablet by mouth once daily spironolactone (ALDACTONE) 25 mg tablet Indications: Essential hypertension, benign Take 1 tablet by mouth once daily. 90 tablet 3 07/22/2024 07/22/2025 Active Start: 09-14-2020 Spironolactone 50 mg tablet Active 25 mg PO DAILY September 13, 2020 11:00pm Start: 09-14-2020 take 25 mg by mouth once daily Spironolactone Active 25 MG PO DAILY September 14, 2020 12:00am Start: 09-14-2020 End: 07-13-2021 take 1 tablet by mouth once daily spironolactone (ALDACTONE) 50 mg tablet Indications: Essential hypertension, benign Take 1 tablet by mouth once daily. 90 tablet 1 09/14/2020 07/13/2021 Discontinued Start: 05-29-2017 take 1 tablet by berna th once daily spironolactone (ALDACTONE) 25 MG tablet Indications: Depressive disorder , Diabetes mellitus without complication (HCC) , SVT (supraventricular tachycardia) (HCC) , Essential hypertension Take 1 tablet by mouth daily 30 tablet 3 05/29/2017 Active Comment on above: Take 1 tablet by berna th once daily. sulfamethoxazole 800 mg / trimethoprim 160 mg oral tablet (1 source) Dihydrofolate Reductase Inhibitor Antibacterial, Sulfonamide Antimicrobial Start: 12-06-19 End: 12-11-19 take 1 tablet by mouth twice daily sulfamethoxazole- trimethoprim (BACTRIM DS;SEPTRA DS) 800-160 MG per tablet Take 1 tablet by mouth 2 times daily for 5 days 10 tablet 0 12/05/2018 12/10/2018 Active tiZANidine 4 mg oral tablet (20 sources) Central alpha-2 Adrenergic Agonist Start: 05-17-19 take 1 capsule by mouth three times daily as needed Tizanidine 4 mg capsule Active 4 mg PO THREE TIMES A DAY as needed for muscle spasticity May 16, 2023 11:00pm Start: 12-29-2022 End: 10-27-2024 take 1 tablet by mouth every eight hours as needed for muscle spasms tiZANidine (ZANAFLEX) 4 mg tablet Indications: Diffuse myofascial pain syndrome Take 1 tablet by mouth every 8 hours as needed (muscle spasms). 90 tablet 2 07/29/2024 10/27/2024 Active Start: 03-30-2022 End: 11-07-2022 take 1 tablet by mouth every eight hours as needed tiZANidine (ZANAFLEX) 4 mg tablet Take 1 tablet by mouth every 8 hours as needed (muscle spasms). 30 tablet 2 11/07/2022 Active Comment on above: Take 1 tablet by berna th every 8 hours as needed (muscle spasms). traZODone hydrochloride 100 mg oral tablet (20 sources) Serotonin Reuptake Inhibitor Start: 1 End: 6 take 1 tablet by mouth once daily at bedtime traZODone (DESYREL) 100 mg tablet Take 1 tablet by mouth daily at bedtime. 90 tablet 3 06/18/2024 06/18/2025 Active Start: 12-04-2018 take 100 mg by mouth once roseanna y 100 mg, Oral, NIGHTLY, First dose on Sun12/04/18 at 2100 Start: 08-01-2017 End: 04-09-2019 take 1 tablet by mouth at bedtime Trazodone 50 MG tablet Discontinued 50 mg PO AT BEDTIME July 31, 2017 11:00pm April 09, 2019 9:15am take 2 tablets by mo [facility] once daily traZODone (DESYREL) 50 MG tablet Take 100 mg by mouth nightly 0 Active Comment on above: Take 1 tablet by berna th daily at bedtime. valACYclovir 1000 mg oral tablet (2 sources) Herpesvirus Nucleoside Analog DNA Polymerase Inhibitor, Herpes Simplex Virus Nucleoside Analog DNA Polymerase Inhibitor, Herpes Zoster Virus Nucleoside Analog DNA Polymerase Inhibitor Start: 4 End: 4 take 1 tablet by mouth three times daily valACYclovir (VALTREX) 1 gram tablet Indications: Herpes zoster without complication Take 1 tablet by mouth three times a day for 14 days. 42 tablet 0 09/12/2023 09/26/2023 Active Completed/Discontinued Medications Medication Drug Class(es) Dates Sig (Normalized) Sig (Original) albuterol 0.833 mg/ml / ipratropium bromide 0.167 mg/ml inhalation solution (1 source) Anticholinergic, beta2-Adrenergic Agonist Start: 03-12-2021 End: 03-12-2021 ipratropium-albute rol (DUONEB) nebulizer solution 1 ampule amitriptyline hydrochloride 50 mg oral tablet (3 sources) Tricyclic Antidepressant Start: 06-02-2024 End: 08-31-2024 take 1 tablet by mouth once daily at bedtime amitriptyline (ELAVIL) 50 mg tablet Indications: Pain disorder with psychological factors Take 1 tablet by mouth daily at bedtime. 30 tablet 2 06/02/2024 06/18/2024 Discontinued aspirin 81 mg delayed release oral tablet (1 source) Platelet Aggregation Inhibitor, Nonsteroidal Anti-inflammatory Drug End: 11-25-2018 take 1 tablet by mouth once daily aspirin 81 MG EC tablet Take 81 mg by mouth daily 0 11/25/2018 Discontinued (Therapy completed) baclofen 10 mg oral tablet (8 sources) gamma-Aminobutyric Acid-ergic Agonist Start: 07-24-2016 End: 04-09-2019 take 1 tablet by mouth twice daily Baclofen 10 MG tablet Discontinued 10 mg PO TWICE A DAY March 06, 2018 12:00am April 09, 2019 9:14am benzonatate 100 mg oral capsule (1 source) Non-narcotic Antitussive Start: 03-12-2021 End: 03-12-2021 benzonatate (TESSALON) capsule 200 mg betamethasone 3 mg/ml / betamethasone acetate 3 mg/ml injectable suspension (2 sources) Corticosteroid Start: 10-20-2021 End: 10-20-2021 betamethasone acetate-betamethas one sodium phosphate 6 mg injection (CELESTONE) Start: 10-10-2021 End: 10-10-2021 betamethasone acetate-betame thasone sodium phosphate 6 mg injection (CELESTONE) Blood-Glucose Meter monitori ng kit (20 sources) Start: 04-05-2023 End: 06-02-2024 Blood-Glucose Meter monitori ng kit Glucose Meter of Choice - Kit - Dx: Type 2 DM - Controlled E11.9 1 Each 04/05/2023 06/02/2024 Discontinued (Discontinued by Patient) Start: 04-05-2023 Blood-Glucose Meter monitoring kit Glucose Meter of Choice - Kit - Dx: Type 2 DM - Controlled E11.9 1 Each 04/05/2023 Active Start: 04-05-2023 Blood-Glucose Meter monitoring kit Glucose Meter of Choice - Kit - Dx: Type 2 DM - Controlled E11.9 1 Each 0 04/05/2023 Active Start: 02-21-2022 End: 06-02-2024 Blood-Glucose Meter monitori ng kit Glucose Meter of Choice - Kit - Dx: Type 2 DM - Controlled E11.9 Use twice daily as directed 1 Each 02/21/2022 06/02/2024 Discontinued Start: 02-21-2022 Blood-Glucose Meter monitoring kit Glucose Meter of Choice - Kit - Dx: Type 2 DM - Controlled E11.9 Use twice daily as directed 1 Each 02/21/2022 Active Start: 02-21-2022 Blood-Glucose Meter monitoring kit Glucose Meter of Choice - Kit - Dx: Type 2 DM - Controlled E11.9 Use twice daily as directed 1 Each 0 02/21/2022 Active Start: 09-13-2017 End: 02-20-2022 Blood-Glucose Meter monitori ng kit Glucose Meter of Choice - Kit - Dx: Type 2 DM - Controlled E11.9 Use twice daily as directed 1 Each 0 09/13/2017 02/20/2022 Discontinued Start: 09-13-2017 Blood-Glucose Meter monitoring kit Glucose Meter of Choice - Kit - Dx: Type 2 DM - Controlled E11.9 Use twice daily as directed 1 Each 0 09/13/2017 Suspended Start: 09-13-2017 Blood-Glucose Meter monitoring kit Glucose Meter of Choice - Kit - Dx: Type 2 DM - Controlled E11.9 Use twice daily as directed 1 Each 0 09/13/2017 Active Comment on above: Glucose Meter of Cho ice - Kit - Dx: Type 2 DM - Controlled E11.9 Use twice daily as directed Glucose Meter of Cho ice - Kit - Dx: Type 2 DM - Controlled E11.9 Blood-Glucose Meter,Continuous (DEXCOM G6 ADVANCED REGISTERED NURSE) misc (20 sources) Start: 04-05-2023 End: 03-13-2024 Blood-Glucose Meter,Continuous (DEXCOM G6 ADVANCED REGISTERED NURSE) misc Indications: Controlled type 2 diabetes mellitus without complication, with long-term current use of insulin (HCC) Use to check blood sugar at least 4 times a day. 1 Each 04/05/2023 03/13/2024 Discontinued Start: 04-05-2023 Blood-Glucose Meter,Continuous (DEXCOM G6 ADVANCED REGISTERED NURSE) misc Indications: Controlled type 2 diabetes mellitus without complication, with long-term current use of insulin (HCC) Use to check blood sugar at least 4 times a day. 1 Each 04/05/2023 Active Start: 04-05-2023 Blood-Glucose Meter,Continuous (DEXCOM G6 ADVANCED REGISTERED NURSE) misc Indications: Controlled type 2 diabetes mellitus without complication, with long-term current use of insulin (HCC) Use to check blood sugar at least 4 times a day. 1 Each 0 04/05/2023 Active Comment on above: Use to check blood s ugar at least 4 times a day. Blood-Glucose Sensor (DEXCOM G6 SENSOR) jessica (20 sources) Start: 08-10-2023 End: 03-13-2024 Blood-Glucose Sensor (DEXCOM G6 SENSOR) jessica Indications: Controlled type 2 diabetes mellitus without complication, with long-term current use of insulin (HCC) Apply new sensor every 10 days to abdomen. 9 Each 08/10/2023 03/13/2024 Discontinued Start: 08-10-2023 Blood-Glucose Sensor (DEXCOM G6 SENSOR) jessica Indications: Controlled type 2 diabetes mellitus without complication, with long-term current use of insulin (HCC) Apply new sensor every 10 days to abdomen. 9 Each 08/10/2023 Active Start: 04-05-2023 End: 08-10-2023 Blood-Glucose Sensor (DEXCOM G6 SENSOR) jessica Indications: Controlled type 2 diabetes mellitus without complication, with long-term current use of insulin (HCC) Apply new sensor every 10 days to abdomen. 9 Each 04/05/2023 08/10/2023 Discontinued Start: 04-05-2023 Blood-Glucose Sensor (DEXCOM G6 SENSOR) jessica Indications: Controlled type 2 diabetes mellitus without complication, with long-term current use of insulin (HCC) Apply new sensor every 10 days to abdomen. 9 Each 04/05/2023 Active Comment on above: Apply new sensor capri ry 10 days to abdomen. Blood-Glucose Transmitter (DEXCOM G6 TRANSMITTER) jessica (20 sources) Start: 01-07-2024 End: 06-02-2024 Blood-Glucose Transmitter (DEXCOM G6 TRANSMITTER) jessica Indications: Controlled type 2 diabetes mellitus without complication, with long-term current use of insulin (HCC) Apply new transmitter every 90 days. Clean transmitter with an alcohol swab with each sensor change. 1 Each 3 01/07/2024 06/02/2024 Discontinued (Duplicate Entry) Start: 01-07-2024 Blood-Glucose Transmitter (DEXCOM G6 TRANSMITTER) jessica Indications: Controlled type 2 diabetes mellitus without complication, with long-term current use of insulin (HCC) Apply new transmitter every 90 days. Clean transmitter with an alcohol swab with each sensor change. 1 Each 3 01/07/2024 Active Start: 09-28-2023 End: 01-07-2024 Blood-Glucose Transmitter (D EXCOM G6 TRANSMITTER) jessica Indications: Controlled type 2 diabetes mellitus without complication, with long-term current use of insulin (HCC) Apply new transmitter every 90 days. Clean transmitter with an alcohol swab with each sensor change. 1 Each 3 09/28/2023 01/07/2024 Discontinued Start: 09-28-2023 Blood-Glucose Transmitter (DEXCOM G6 TRANSMITTER) jessica Indications: Controlled type 2 diabetes mellitus without complication, with long-term current use of insulin (HCC) Apply new transmitter every 90 days. Clean transmitter with an alcohol swab with each sensor change. 1 Each 3 09/28/2023 Active Start: 04-05-2023 End: 09-28-2023 Blood-Glucose Transmitter (D EXCOM G6 TRANSMITTER) jessica Indications: Controlled type 2 diabetes mellitus without complication, with long-term current use of insulin (HCC) Apply new transmitter every 90 days. Clean transmitter with an alcohol swab with each sensor change. 1 Each 3 04/05/2023 09/28/2023 Discontinued Start: 04-05-2023 Blood-Glucose Transmitter (DEXCOM G6 TRANSMITTER) jessica Indications: Controlled type 2 diabetes mellitus without complication, with long-term current use of insulin (HCC) Apply new transmitter every 90 days. Clean transmitter with an alcohol swab with each sensor change. 1 Each 3 04/05/2023 Active Comment on above: Apply new transmitte r every 90 days. Clean transmitter with an alcohol swab with each sensor change. calcitriol 0.0005 mg oral capsule (14 sources) Vitamin D3 Analog Start: 07-26-19 End: 10-04-19 take 1 capsule by mouth twice daily calcitriol (ROCALTROL) 0.5 mcg capsule Take 1 capsule by mouth twice daily for 14 days. 28 capsule 0 07/25/2021 10/03/2021 Discontinued Comment on above: Take 1 capsule by [facility] twice daily for 14 days. calcium chloride 0.0014 meq/ml / potassium chloride 0.004 meq/ml / sodium chloride 0.103 meq/ml / sodium lactate 0.028 meq/ml injectable solution (1 source) Start: 12-05-19 End: 12-05-19 lactated ringers infusion ceFAZolin (ANCEF) 3 g in sodium chloride 0.9% 100 mL IVPB (1 source) Start: 12-05-19 End: 12-06-19 ceFAZolin (ANCEF) 3 g in sodium chloride 0.9% 100 mL IVPB cephalexin 750 mg oral capsule (6 sources) Cephalosporin Antibacterial Start: 09-15-19 End: 03-14-19 take 1 capsule by mouth every six hours Cephalexin (Keflex) 750 mg capsule Discontinued 750 mg PO EVERY 6 HOURS September 13, 2020 11:00pm March 14, 2021 12:10pm chlorhexidine gluconate 20 mg/ml medicated pad (6 sources) Start: 03-08-19 End: 06-14-19 Chlorhexidine Gluconate 1 EACH [place] Discontinued 1 NMA TOPICAL DAILY March 08, 2018 12:00am June 13, 2018 10:40pm Start: 03-08-2018 End: 06-13-2018 Chlorhexidine Gluconate Disc ontinued 1 EACH TOPICAL DAILY March 08, 2018 1:00am June 13, 2018 11:40pm chondroitin sulfates 200 mg / glucosamine hydrochloride 250 mg oral tablet (8 sources) Glucosamine-Song droitin (OSTEO BI-FLEX) 250-200 mg tab Take by mouth. 0 Active Comment on above: Take by mouth. clindamycin 150 mg oral capsule (13 sources) Lincosamide Antibacterial Start: 2018 End: 2018 take 1 capsule by mouth four times daily Clindamycin Hcl 150 MG capsule Discontinued 150 mg PO 4 TIMES DAILY June 12, 2018 11:00pm June 15, 2018 10:10am Start: 10-21-2017 End: 10-23-2017 take 1 capsule by mouth four times daily Clindamycin Hcl 150 MG capsule Discontinued 150 mg PO 4 TIMES DAILY October 20, 2017 11:00pm October 23, 2017 10:53am collagen/biotin/ascorbic aci d (COLLAGEN 1500 PLUS C ORAL) (15 sources) End: 05-10-2023 collagen/biotin/ascorbic aci d (COLLAGEN 1500 PLUS C ORAL) Take by mouth. 0 05/10/2023 Discontinued (Discontinued by Patient) collagen/biotin/ ascorbic acid (COLLAGEN 1500 PLUS C ORAL) Take by mouth. 0 Active Comment on above: Take by mouth. collagenase 0.25 unt/mg topical ointment (7 sources) Collagen-specific Enzyme Start: 02-26-2023 End: 05-27-2023 collagenase (SANTYL) ointment Apply to affected area once daily. 15 g 2 02/26/2023 05/10/2023 Discontinued (Discontinued by Patient) Comment on above: Apply to affected ar ea once daily. 1 ml dexamethasone phosphate 10 mg/ml injection (1 source) Corticosteroid Start: 03-12-2021 End: 03-12-2021 dexamethasone (PF) (DECADRON) injection 8 mg 0.5 ml dulaglutide 3 mg/ml auto-injector (20 sources) GLP-1 Receptor Agonist Start: 10-03-2021 End: 05-17-2023 Dulaglutide (Trulicity) 1.5 mg/0.5 mL pen injector Discontinued 1.5 mg SC FR March 02, 2022 12:00am May 17, 2023 12:48pm LAST DOSE 02/24 Start: 09-22-2021 End: 09-22-2022 inject 0.75 mg by subcutaneous injection every week dulaglutide (TRULICITY) 0.75 mg/0.5 mL pen injector Indications: Type 2 diabetes mellitus with peripheral neuropathy (HCC) Inject 0.75 mg subcutaneously one time a week. Inject dose once per week. Discard Pen After 2 mL 11 09/22/2021 10/03/2021 Discontinued Comment on above: Inject 0.75 mg subcu taneously one time a week. Inject dose once per week. Discard Pen After Inject 1.5 mg subcut aneously one time a week. Inject once per week. Discard Pen After dulaglutide (TRULICITY) 3 mg/0.5 mL pen injector (20 sources) Start: 023 End: inject 3 mg by subcutaneous injection every week dulaglutide (TRULICITY) 3 mg/0.5 mL pen injector Indications: Type 2 diabetes mellitus with peripheral neuropathy (HCC) Inject 3 mg subcutaneously one time a week. 12 Each 12/19/2022 05/10/2023 Discontinued (Discontinued by Patient) Start: 12-19-2022 inject 3 mg by subcu taneous injection every week dulaglutide (TRULICITY) 3 mg/0.5 mL pen injector Indications: Type 2 diabetes mellitus with peripheral neuropathy (HCC) Inject 3 mg subcutaneously one time a week. 12 Each 1 12/19/2022 Active Start: 11-29-2022 End: 12-18-2022 inject 3 mg by subcutaneous injection every week dulaglutide (TRULICITY) 3 mg/0.5 mL pen injector Indications: Type 2 diabetes mellitus with peripheral neuropathy (HCC) Inject 3 mg subcutaneously one time a week. 12 Each 11/29/2022 12/18/2022 Discontinued Start: 11-29-2022 inject 3 mg by subcu taneous injection every week dulaglutide (TRULICITY) 3 mg/0.5 mL pen injector Indications: Type 2 diabetes mellitus with peripheral neuropathy (HCC) Inject 3 mg subcutaneously one time a week. 12 Each 11/29/2022 Active Start: 05-08-2022 End: 11-28-2022 inject 3 mg by subcutaneous injection every week dulaglutide (TRULICITY) 3 mg/0.5 mL pen injector Indications: Type 2 diabetes mellitus with peripheral neuropathy (HCC) Inject 3 mg subcutaneously one time a week. 12 Each 05/08/2022 11/28/2022 Discontinued Start: 05-08-2022 inject 3 mg by subcu taneous injection every week dulaglutide (TRULICITY) 3 mg/0.5 mL pen injector Indications: Type 2 diabetes mellitus with peripheral neuropathy (HCC) Inject 3 mg subcutaneously one time a week. 12 Each 05/08/2022 Active Comment on above: Inject 3 mg subcutan eously one time a week. glimepiride 4 mg oral tablet (1 source) Sulfonylurea Start: End: take 1 tablet by mouth once daily before breakfast glimepiride (AMARYL) 4 MG tablet Take 1 tablet by mouth every morning (before breakfast) 30 tablet 3 05/29/2017 11/25/2018 Discontinued (Therapy completed) 250 ml glucose 50 mg/ml / sodium chloride 4.5 mg/ml injection (1 source) Start: End: Intravenous, at 150 mL/hr, CONTINUOUS, Starting Sun12/04/18 at 1400, Post-op indomethacin 25 mg oral capsule (1 source) Nonsteroidal Anti-inflammatory Drug Start: End: take 1 capsule by mouth twice daily at mealtime indomethacin (INDOCIN) 25 MG capsule Take 1 capsule by mouth 2 times daily (with meals) 60 capsule 3 04/09/2017 11/25/2018 Discontinued (Therapy completed) insulin detemir 100 unt/ml injectable solution (6 sources) Insulin Analog Start: End: inject 20 [IU] by subcutaneous injection at bedtime Insulin Detemir U-100 (Levemir) 100 UNIT/ML Vial Discontinued 20 U SQ AT BEDTIME September 08, 2017 11:00pm September 11, 2017 9:37am Iopamidol (1 source) Radiographic Contrast Agent Start: End: iopamidol (ISOVUE-370) 76 % injection 75 mL levoFLOXacin 750 mg oral tablet (6 sources) Quinolone Antimicrobial Start: End: take 1 tablet by mouth once daily Levofloxacin 750 mg tablet Discontinued 750 mg PO DAILY March 04, 2022 12:00am May 17, 2023 12:51pm Start: 06-23-2018 End: 11-25-2018 take 1 tablet by mouth once daily levofloxacin (LEVAQUIN) 500 MG tablet take 1 tablet by mouth once daily for 10 days 0 06/23/2018 11/25/2018 Discontinued (Therapy completed) 10 ml lidocaine hydrochloride 10 mg/ml injection (3 sources) Antiarrhythmic, Amide Local Anesthetic Start: 10-20-2021 End: 10-20-2021 lidocaine (PF) 10 mg/mL (1 %) 4 mL injection (XYLOCAINE) Start: 10-10-2021 End: 10-10-2021 lidocaine (PF) 10 mg/mL (1 % ) 4 mL injection (XYLOCAINE) Start: 01-19-2021 lidocaine (LID ODERM) 5 % Apply topically 0 01/19/2021 Active linagliptin 5 mg oral tablet (1 source) Dipeptidyl Peptidase 4 Inhibitor Start: 05-29-2017 End: 11-25-2018 take 1 tablet by mouth once daily linagliptin (TRADJENTA) 5 MG tablet Indications: Diabetes mellitus without complication (HCC) Take 1 tablet by mouth daily 30 tablet 3 05/29/2017 11/25/2018 Discontinued (Therapy completed) menthol 0.0044 mg/mg / zinc oxide 0.2 mg/mg topical ointment (12 sources) Start: 06-13-2018 End: 04-09-2019 Menthol-Zinc Oxide 1 APPLIC ointment Discontinued 1 NMA TOPICAL DAILY June 13, 2018 10:45pm April 09, 2019 9:15am apply to areas in the intergluteal cleft Please contact the information source for Protocol details. Start: 06-13-2018 End: 04-09-2019 Menthol-Zinc Oxide Discontin ued 1 APPLIC TOPICAL DAILY June 13, 2018 11:45pm April 09, 2019 10:15am apply to areas in the intergluteal cleft Start: 03-08-2018 End: 06-13-2018 Menthol-Zinc Oxide (Calmosep ga) 1 APPLIC Tube Discontinued 1 NMA TOPICAL TWICE A DAY 1 March 08, 2018 12:00am June 13, 2018 10:40pm apply to areas in the intergluteal cleft Please contact the information source for Protocol details. Start: 03-08-2018 End: 06-13-2018 Menthol-Zinc Oxide (Calmosep ga) 1 APPLIC Tube Discontinued 1 APPLIC TOPICAL TWICE A DAY 1 March 08, 2018 1:00am June 13, 2018 11:40pm apply to areas in the intergluteal cleft 24 hr metFORMIN hydrochloride 500 mg extended release oral tablet (20 sources) Biguanide Start: 10-16-2021 take 1 tablet by mouth once daily at breakfast metFORMIN ER (GLUCOPHAGE XR) 500 mg 24 hr tablet Take 1 tablet by mouth daily with breakfast. 0 10/16/2021 Active Start: 09-12-2021 End: 09-12-2022 take 1 tablet by mouth twice daily metFORMIN ER (GLUCOPHAGE XR) 500 mg 24 hr tablet Take 1 tablet by mouth twice daily. 180 tablet 3 09/12/2021 10/16/2021 Discontinued Start: 09-14-2020 End: 09-12-2021 take 1 tablet by mouth once daily metFORMIN ER (GLUCOPHAGE XR) 500 mg 24 hr tablet Take 1 tablet by mouth once daily. 90 tablet 3 09/14/2020 09/12/2021 Discontinued Start: 06-29-2020 End: 05-17-2023 take 1 tablet by mouth once daily Metformin 500 mg Tablet Discontinued 500 mg PO DAILY June 28, 2020 11:00pm May 17, 2023 12:51pm Start: 04-09-2017 End: 11-25-2018 take 1 tablet by mouth once daily at breakfast metFORMIN (GLUCOPHAGE) 500 MG tablet take 1 tablet by mouth once daily WITH BREAKFAST 30 tablet 5 04/09/2017 11/25/2018 Discontinued (Therapy completed) Comment on above: Take 1 tablet by berna th once daily. Take 1 tablet by berna th twice daily. Take 1 tablet by berna th daily with breakfast. methocarbamol 500 mg oral tablet (20 sources) Muscle Relaxant Start: End: take 1 tablet by mouth twice daily Methocarbamol 500 mg tablet Discontinued 500 mg PO TWICE A DAY March 02, 2022 12:00am May 17, 2023 12:51pm Comment on above: Take 1 tablet by berna th twice daily. 1 ml morphine sulfate 4 mg/ml cartridge (1 source) Opioid Agonist Start: End: morphine injection 4 mg nabumetone 500 mg oral tablet (1 source) Nonsteroidal Anti-inflammatory Drug Start: End: take 1 tablet by mouth once daily at mealtime nabumetone (RELAFEN) 500 MG tablet take 1 tablet by mouth once daily with food 0 05/16/2018 11/25/2018 Discontinued (Therapy completed) nitroglycerin 0.4 mg sublingual tablet (1 source) Nitrate Vasodilator Start: End: nitroGLYCERIN (NITROSTAT) 0.[address] 1 tablet under the tongue every 5 minutes as needed for Chest pain up to max of 3 total doses. If no relief after 1 dose, call 911. 25 tablet 11 10/03/2016 11/25/2018 Discontinued (Therapy completed) nystatin [id number] unt/ml / triamcinolone acetonide 1 mg/ml topical cream (6 sources) Polyene Antifungal, Corticosteroid Start: End: Nystatin-Triamcinolo ne 1 APPLIC cream Discontinued 1 NMA TOPICAL DAILY June 12, 2018 11:00pm April 09, 2019 9:15am Start: 06-13-2018 End: 04-09-2019 Nystatin-Triamcinolone Disco ntinued 1 APPLIC TOPICAL DAILY June 13, 2018 12:00am April 09, 2019 10:15am ondansetron 4 mg disintegrating oral tablet (20 sources) Serotonin-3 Receptor Antagonist Start: 12-13-2021 take 1 tablet by mouth every eight hours as needed ondansetron orally disintegrating (ZOFRAN ODT) 4 mg disintegrating tablet Take 1 tablet by mouth every 8 hours as needed for nausea/vomiting. 20 tablet 0 12/13/2021 Active Start: 12-04-2018 4 mg, Intraven ous, EVERY 4 HOURS PRN, Nausea, Vomiting, Starting Sun12/04/18 at 1344, Post-op Comment on above: Take 1 tablet by berna th every 8 hours as needed for nausea/vomiting. phentermine hydrochloride 37.5 mg oral tablet (7 sources) Sympathomimetic Amine Anorectic Start: End: take 1 tablet by mouth once daily Phentermine HCl (ADIPEX-P) 37.5 mg tablet Indications: Morbid obesity (HCC) Take 1 tablet by mouth once daily for 90 days. 30 tablet 2 02/26/2023 05/10/2023 Discontinued (Discontinued by Patient) Comment on above: Take 1 tablet by berna th once daily for 90 days. primidone 50 mg oral tablet (8 sources) Anti-epileptic Agent Start: 017 End: take 1 tablet by mouth at bedtime Primidone 50 tablet Discontinued 50 mg PO AT BEDTIME July 31, 2017 11:00pm April 09, 2019 9:15am topiramate 25 mg oral tablet (20 sources) Start: 025 End: take 1 tablet by mouth once daily topiramate (TOPAMAX) 25 mg tablet Indications: Super obesity , DDD (degenerative disc disease), lumbar Take 1 tablet by mouth once daily. 90 tablet 1 08/25/2024 10/17/2024 Discontinued Start: 11-09-2023 End: 11-25-2024 take 1 tablet by mouth twice daily topiramate (TOPAMAX) 25 mg tablet Indications: Super obesity , DDD (degenerative disc disease), lumbar Take 1 tablet by mouth two times a day. 60 tablet 5 05/29/2024 06/02/2024 Discontinued (Discontinued by Patient) Start: 06-21-2023 End: 11-09-2023 take 1 tablet by mouth once daily at bedtime topiramate (TOPAMAX) 25 mg tablet Indications: Super obesity Take 1 tablet by mouth daily at bedtime. 90 tablet 3 09/11/2023 11/09/2023 Discontinued triamcinolone acetonide 0.001 mg/mg oral paste (19 sources) Corticosteroid Start: 07-07-2022 End: 10-06-2022 triamcinolone (KENALOG IN ORABASE) 0.1 % paste Indications: Type 2 diabetes mellitus with peripheral neuropathy (HCC) 1/4 paste 2-3 times a day to canker until pain resolves 7.5 g 1 07/07/2022 10/06/2022 Discontinued Comment on above: /4 paste 2-3 times a day to canker until pain resolves Zinc (15 sources) End: 05-10-2023 ZINC ORAL Take by mouth. 0 05/10/2023 Discontinued (Discontinued by Patient) ZINC ORAL Take b y mouth. 0 Active Comment on above: Take by mouth. Problems Active Problems Problem Classification Problem Date Documented Date Episodic/Chronic Abdominal pain (6 sources) Flank pain; Translations: [Unspecified abdominal pain] 11-09-2019 Episodic Anxiety disorders (20 sources) Anxiety state; Translations: [Generalized anxiety disorder] Onset: 6 04-19-2018 Chronic Bacterial infection; unspecified site (1 source) Bacteremia; Translations: [Bacteremia] Episodic Cardiac dysrhythmias (20 sources) Supraventricular tachycardia; Translations: [Supraventricular tachycardia] Onset: 0 10-05-2016 Chronic Cardiac dysrhythmias (4 sources) Palpitations; Translations: [Palpitations] 10-03-2016 Episodic Chronic obstructive pulmonary disease and bronchiectasis (6 sources) Chronic obstructive lung disease; Translations: [Chronic obstructive pulmonary disease, unspecified] 11-08-2019 Chronic Chronic ulcer of skin (20 sources) Ulcer of thigh; Translations: [Pressure ulcer of right hip, stage 3] Onset: 2 Resolved: 5 Chronic Comment on above: Ulcer on both right and left upper posterior thighs Conditions associated with dizziness or vertigo (4 sources) Benign paroxysmal positional vertigo; Translations: [Benign paroxysmal vertigo, unspecified ear] 03-07-2022 Episodic Congestive heart failure; nonhypertensive (15 sources) Acute exacerbation of chronic congestive heart failure; Translations: [Heart failure, unspecified] Onset: 5 03-12-2021 Chronic Delirium, dementia, and amnestic and other cognitive disorders (2 sources) Senile asthenia; Translations: [Age-related physical debility] Onset: 5 03-13-2024 Chronic Diabetes mellitus with complications (20 sources) Type 2 diabetes mellitus; Translations: [Type 2 diabetes mellitus with diabetic polyneuropathy] Onset: 1 Resolved: 3 05-14-2020 Chronic Diseases of mouth; excluding dental (1 source) Lesion of tongue; Translations: [Other diseases of tongue] Episodic Diseases of white blood cells (1 source) Leukocytosis; Translations: [Elevated white blood cell count, unspecified] Chronic Disorders of lipid metabolism (11 sources) Mixed hyperlipidemia; Translations: [Mixed hyperlipidemia] Onset: 5 11-08-2019 Chronic Esophageal disorders (20 sources) Gastroesophageal reflux disease; Translations: [Gastro-esophageal reflux disease without esophagitis] Onset: 7 07-27-2006 Chronic Essential hypertension (20 sources) Hypertensive disorder; Translations: [Essential (primary) hypertension] Onset: 6 Resolved: 0 09-28-2016 Chronic distress and abnormal forces of labor (1 source) Labor problem; Translations: [Abnormality of forces of labor, unspecified] Episodic Genitourinary symptoms and ill-defined conditions (1 source) Dysuria; Translations: [Dysuria] 2023 Episodic Hypertension with complications and secondary hypertension (20 sources) 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; Translations: [Hypertensive heart disease with heart failure] Onset: 2 05-02-2021 Chronic Immunizations and screening for infectious disease (5 sources) Patient encounter status; Translations: [Encounter for immunization] Episodic Inflammation; infection of eye (except that caused by tuberculosis or sexually transmitteddisease) (1 source) Herpes zoster keratitis; Translations: [Zoster keratitis] 11-09-2023 Episodic Influenza (9 sources) Influenza due to Influenza A virus; Translations: [Influenza due to other identified influenza virus with other respiratory manifestations] Episodic Menopausal disorders (20 sources) Postmenopausal bleeding; Translations: [Postmenopausal bleeding] Onset: 5 12-02-2014 Chronic Menstrual disorders (20 sources) Irregular periods; Translations: [Irregular menstruation, unspecified] Onset: 6 10-20-2005 Chronic Miscellaneous mental health disorders (20 sources) Pain disorder with psychological factor; Translations: [Pain disorder with related psychological factors] Onset: 5 01-25-2015 Chronic Mood disorders (20 sources) Depressive disorder; Translations: [Depression] Onset: 6 Resolved: 5 03-19-2017 Chronic Mycoses (3 sources) Tinea corporis; Translations: [Tinea corporis] Onset: 5 Episodic Nutritional deficiencies (6 sources) Vitamin D deficiency; Translations: [Vitamin D deficiency, unspecified] 11-08-2020 Chronic Osteoarthritis (20 sources) Primary gonarthrosis, bilateral; Translations: [Bilateral primary osteoarthritis of knee] Onset: 6 Resolved: 7 11-25-2015 Chronic Other circulatory disease (1 source) H/O: heart failure; Translations: [Personal history of other diseases of the circulatory system] Episodic Other connective tissue disease (6 sources) Muscle spasm of cervical muscle of neck; Translations: [Other muscle spasm] 01-27-2021 Episodic Other connective tissue disease (1 source) Pain in both feet; Translations: [Pain in right foot] 08-13-2023 Episodic Other endocrine disorders (6 sources) Hyperparathyroidism; Translations: [Hyperparathyroidism, unspecified] 11-08-2020 Chronic Other endocrine disorders (1 source) Primary hyperparathyroidism; Translations: [Primary hyperparathyroidism (HCC)] Onset: 3 Chronic Other gastrointestinal disorders (1 source) Chronic constipation; Translations: [Other constipation] 09-28-2023 Episodic Other hereditary and degenerative nervous system conditions (3 sources) Restless legs; Translations: [Restless legs syndrome] Chronic Other hereditary and degenerative nervous system conditions (1 source) Restless legs syndrome; Translations: [Restless legs syndrome] Onset: 5 Chronic Other injuries and conditions due to external causes (1 source) Open wound; Translations: [Other injury of unspecified body region, initial encounter] 08-28-2022 Episodic Other injuries and conditions due to external causes (1 source) Open wound of skin; Translations: [Other injury of unspecified body region, initial encounter] 09-07-2022 Episodic Other liver diseases (20 sources) Disease of liver; Translations: [Liver disease, unspecified] Onset: 8 09-17-2017 Chronic Other lower respiratory disease (1 source) Hypoxia; Translations: [Hypoxemia] Episodic Other lower respiratory disease (7 sources) Dyspnea; Translations: [Dyspnea, unspecified] Episodic Other lower respiratory disease (6 sources) Dyspnea on exertion; Translations: [Other forms of dyspnea] 04-09-2019 Episodic Other lower respiratory disease (6 sources) H/O: pneumonia; Translations: [Personal history of pneumonia (recurrent)] 06-13-2018 Episodic Other nervous system disorders (6 sources) Peripheral nerve disease ; Translations: [Polyneuropathy, unspecified] 06-29-2020 Chronic Other nervous system disorders (1 source) Tremor; Translations: [Tremor, unspecified] Episodic Other nervous system disorders (1 source) Psychosomatic musculoskeletal symptoms; Translations: [Tremor, unspecified] 10-02-2022 Episodic Other non-traumatic joint disorders (2 sources) Pain in right knee; Translations: [Pain in joint, lower leg] Episodic Other nutritional; endocrine; and metabolic disorders (20 sources) Morbid obesity; Translations: [Morbid (severe) obesity due to excess calories] Onset: 9 01-17-2011 Chronic Other nutritional; endocrine; and metabolic disorders (20 sources) Body mass index 40+ - severely obese; Translations: [Morbid (severe) obesity due to excess calories] Onset: 8 Resolved: 3 01-13-2019 Chronic Other nutritional; endocrine; and metabolic disorders (10 sources) Morbid (severe) obesity due to excess calories; Translations: [Morbid obesity] Onset: 1 Chronic Other nutritional; endocrine; and metabolic disorders (1 source) Severe obesity; Translations: [Morbid (severe) obesity due to excess calories] 09-28-2023 Chronic Other nutritional; endocrine; and metabolic disorders (2 sources) Body mass index (BMI) 70 or greater, adult; Translations: [Body mass index [BMI] 70 or greater, adult] Onset: 5 Chronic Other nutritional; endocrine; and metabolic disorders (2 sources) Body mass index (BMI) 50.0-59.9, adult; Translations: [BMI 50.0-59.9, adult (HCC)] Onset: 5 Chronic Other nutritional; endocrine; and metabolic disorders (6 sources) Adult failure to thrive syndrome; Translations: [Adult failure to thrive] 03-22-2021 Episodic Other upper respiratory infections (1 source) Chronic sinusitis, unspecified; Translations: [Unspecified sinusitis (chronic)] 04-14-2024 Chronic Other upper respiratory infections (9 sources) Viral upper respiratory tract infection; Translations: [Acute upper respiratory infection, unspecified] 02-04-2019 Episodic Phlebitis; thrombophlebitis and thromboembolism (20 sources) Deep venous thrombosis; Translations: [Acute embolism and thrombosis of unspecified deep veins of unspecified lower extremity] Onset: 9 Resolved: 5 11-25-2018 Episodic Pulmonary heart disease (6 sources) Pulmonary hypertension; Translations: [Pulmonary hypertension, unspecified] 04-09-2019 Chronic Residual codes; unclassified (4 sources) Sleep apnea; Translations: [Sleep apnea, unspecified] Onset: 7 10-05-2016 Chronic Residual codes; unclassified (4 sources) Chronic pain; Translations: [Other chronic pain] Onset: 8 03-19-2017 Chronic Residual codes; unclassified (20 sources) Obstructive sleep apnea syndrome; Translations: [Obstructive sleep apnea (adult) (pediatric)] Onset: 0 Chronic Residual codes; unclassified (1 source) Obstructive sleep apnea (adult) (pediatric); Translations: [Obstructive sleep apnea] Onset: 5 Chronic Residual codes; unclassified (1 source) H/O: surgery; Translations: [S/P recurrent ventral herniorrhaphy] Episodic Residual codes; unclassified (6 sources) Peripheral edema; Translations: [Edema, unspecified] 11-14-2019 Episodic Residual codes; unclassified (1 source) Pain; Translations: [Pain, unspecified] 04-20-2021 Episodic Residual codes; unclassified (3 sources) History of parathyroidectomy; Translations: [Other specified postprocedural states] Onset: 5 10-17-2024 Episodic Residual codes; unclassified (1 source) Localized edema; Translations: [Bilateral leg edema] Onset: 5 Episodic Residual codes; unclassified (1 source) Other specified postprocedural states; Translations: [S/P parathyroidectomy] Onset: 5 Episodic Residual codes; unclassified (1 source) Acquired absence of other organs; Translations: [S/P parathyroidectomy] Onset: 5 Episodic Respiratory failure; insufficiency; arrest (adult) (20 sources) Chronic hypoxemic respiratory failure; Translations: [Chronic respiratory failure with hypoxia] Onset: 2 05-03-2021 Chronic Respiratory failure; insufficiency; arrest (adult) (6 sources) Acute respiratory failure; Translations: [Acute respiratory failure with hypoxia] 03-12-2021 Episodic Septicemia (except in labor) (9 sources) Sepsis; Translations: [Sepsis, unspecified organism] Episodic Skin and subcutaneous tissue infections (20 sources) Cellulitis of lower limb; Translations: [Cellulitis of left lower limb] Onset: 5 Episodic Spondylosis; intervertebral disc disorders; other back problems (20 sources) Arthropathy of lumbar facet joint; Translations: [Spondylosis without myelopathy or radiculopathy, lumbar region] Onset: 2 12-21-2011 Chronic Spondylosis; intervertebral disc disorders; other back problems (5 sources) Low back pain; Translations: [Low back pain] Onset: 7 10-05-2016 Episodic Unclassified (3 sources) Normal coronary arteries; Translations: [Normal coronary arteries] 10-03-2016 Unclassified (1 source) NO SHOW 08-08-2024 Unclassified (1 source) Degeneration of intervertebral disc of lumbar region, unspecified whether pain present; Translations: [Degeneration of intervertebral disc of lumbar region, unspecified whether pain present] Onset: 2 Unclassified (1 source) DDD (degenerative disc disease), lumbar; Translations: [DDD (degenerative disc disease), lumbar] Onset: 2 Urinary tract infections (1 source) Urinary tract infectious disease; Translations: [Urinary tract infection, site not specified] Episodic Viral infection (5 sources) COVID-19; Translations: [Other specified viral infection] Onset: 2 Episodic Past or Other Problems Problem Classification Problem Date Documented Date Episodic/Chronic Abdominal hernia (20 sources) Hernia of anterior abdominal wall; Translations: [Incisional hernia] Onset: 01-16-2007 Resolved: 07-27-2022 10-20-2016 Episodic Administrative/social admission (8 sources) Immobile; Translations: [Other reduced mobility] Onset: 04-08-2024 06-29-2020 Episodic Complications of surgical procedures or medical care (20 sources) Drug therapy finding; Translations: [Unspecified adverse effect of drug or medicament, initial encounter] Onset: 10-21-2009 Resolved: 08-10-2017 08-10-2017 Episodic Diabetes mellitus without complication (20 sources) Diabetes mellitus; Translations: [Type 2 diabetes mellitus without complications] Onset: 04-10-2012 Resolved: 05-13-2019 10-05-2016 Chronic Gastritis and duodenitis (20 sources) Acute gastritis; Translations: [Acute gastritis without bleeding] Onset: 01-16-2007 Resolved: 07-24-2016 02-07-2007 Episodic Malaise and fatigue (20 sources) Asthenia; Translations: [Other malaise] Onset: 05-02-2021 05-02-2021 Episodic Nonspecific chest pain (8 sources) Chest pain; Translations: [Chest pain, unspecified] Onset: 05-07-2024 06-13-2018 Episodic Other acquired deformities (20 sources) Spondylolisthesis; Translations: [Spondylolisthesis, site unspecified] Onset: 12-21-2011 12-21-2011 Episodic Other aftercare (4 sources) Surgical follow-up; Translations: [Encounter for follow-up examination after completed treatment for conditions other than malignant neoplasm] Onset: 01-26-2017 Resolved: 05-31-2017 05-31-2017 Episodic Other aftercare (1 source) 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; 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] Onset: 04-08-2024 Episodic Other connective tissue disease (20 sources) Myofascial pain syndrome; Translations: [Myalgia, other site] Onset: 09-08-2015 09-08-2015 Episodic Other connective tissue disease (1 source) Myalgia, other site; Translations: [Diffuse myofascial pain syndrome] Onset: 09-08-2015 Episodic Other endocrine disorders (20 sources) Primary hyperparathyroidism; Translations: [Primary hyperparathyroidism] Onset: 05-09-2018 Resolved: 10-17-2024 12-13-2020 Chronic Other endocrine disorders (20 sources) Hyperprolactinemia; Translations: [Hyperprolactinemia] Onset: 10-13-2005 Resolved: 05-02-2021 05-02-2021 Chronic Other nervous system disorders (2 sources) Postoperative pain ; Translations: [Other acute postprocedural pain] Episodic Other nervous system disorders (20 sources) Abnormal gait due to impairment of balance; Translations: [Other abnormalities of gait and mobility] Onset: 05-02-2021 05-02-2021 Episodic Other non-traumatic joint disorders (20 sources) Joint pain; Translations: [Pain in unspecified joint] Onset: 08-29-2007 Resolved: 07-24-2016 07-24-2016 Episodic Other nutritional; endocrine; and metabolic disorders (20 sources) Hypercalcemia; Translations: [Hypercalcemia] Onset: 05-09-2018 Resolved: 08-18-2024 05-09-2018 Chronic Other screening for suspected conditions (not mental disorders or infectious disease) (20 sources) Normal coronary arteries; Translations: [Encounter for observation for other suspected diseases and conditions ruled out] Onset: 10-04-2005 10-03-2016 Episodic Screening and history of mental health and substance abuse codes (20 sources) Ex-smoker; Translations: [Personal history of nicotine dependence] Onset: 07-08-2021 Episodic Sprains and strains (20 sources) Traumatic rupture of rotator cuff; Translations: [Strain of muscle(s) and tendon(s) of the rotator cuff of right shoulder, initial encounter] Onset: 05-02-2021 05-02-2021 Episodic Unclassified (2 sources) Patient encounter status 03-29-2024 Results Test Name Value Interpretation Reference Range Facility HbA1c (Bld)on 12-29-2024 Average glucose Estimated from glycated hemoglobin (Bld) [Mass/Vol] 157 mg/dL Normal [facility] Comment on above: Order Comment: Dianne hernández Type: BLOOD SPECIMENOrdering Facility: [facility] Address: [address] [place] [address] Result Comment: eAG: (Estimated average glucose) is a calculated value from HgbA1c and is unit support representative of the average blood glucose level in the last 2-3 month period. Performed By: #### 5 5454-3 ####[facility] LABCLIA [id number] [place] [address] [place] HbA1c (Bld) [Mass fraction] 7.1 % High 4.3-5.6 [facility] Comment on above: Order Comment: Dianne hernández Type: BLOOD SPECIMENOrdering Facility: [facility] Address: [address] [place] [address] Result Comment: Amer [place] Diabetes Association guidelines indicate that patients with HgbA1c in the range 5.7-6.4% are at increased risk for development of diabetes, and intervention by lifestyle modification may be beneficial. HgbA1c greater or equal to 6.5% is considered diagnostic of diabetes. Performed By: #### 5 5454-3 ####[facility] LABCLIA [id number] [place] [address] [place] Hepatic function 2000 panelo n 12-29-2024 Albumin [Mass/Vol] 4.4 g/dL Normal 3.9-4.9 [facility] Comment on above: Order Comment: Dianne hernández Type: BLOOD SPECIMENOrdering Facility: [facility] Address: [address] [place] [address] Performed By: #### 2 4331-1, 20263-7 ####[facility] LABCLIA [id number] [place] [address] [place] ALP [Catalytic activity/Vol] 109 U/L Normal 34-123 [facility] Comment on above: Order Comment: Speci men Type: BLOOD SPECIMENOrdering Facility: [facility] Address: [address] [place] [address] Performed By: #### 2 4331-1, 06980-1 ####[facility] LABCLIA [id number] [place] [id number] [place] ALT [Catalytic activity/Vol] 15 U/L Normal 7-38 [facility] Comment on above: Order Comment: Speci men Type: BLOOD SPECIMENOrdering Facility: [facility] Address: [address] [place] [address] Performed By: #### 2 4331-1, 50081-9 ####[facility] LABCLIA [id number] [place] [address] [place] AST [Catalytic activity/Vol] 20 U/L Normal 13-35 [facility] Comment on above: Order Comment: Speci men Type: BLOOD SPECIMENOrdering Facility: [facility] Address: [address] [place] [address] Performed By: #### 2 433-1, 68092-6 ####[facility] LABCLIA [id number] [place] [address] [place] Bilirubin [Mass/Vol] 0.5 mg/dL Normal 0.2-1.3 [facility] Comment on above: Order Comment: Speci men Type: BLOOD SPECIMENOrdering Facility: [facility] Address: [address] [place] [address] Performed By: #### 2 4331-1, 56463-0 ####[facility] LABCLIA [id number] [place] [address] [place] Bilirubin.conjugated [Mass/Vol] 0.2 mg/dL Normal <0.3 [facility] Comment on above: Order Comment: Speci men Type: BLOOD SPECIMENOrdering Facility: [facility] Address: [address] [place] [address] Performed By: #### 2 4331-1, 50378-2 ####[facility] LABCLIA [id number] [place] [address] [place] Protein [Mass/Vol] 6.7 g/dL Normal 6.3-8.0 [facility] Comment on above: Order Comment: Speci men Type: BLOOD SPECIMENOrdering Facility: [facility] Address: [address] [place] [address] Performed By: #### 2 4331-1, 81205-3 ####[facility] LABCLIA [id number] [place] [address] [place] Lipid 1996 panelon 5 Cholesterol [Mass/Vol] 143 mg/dL Normal <200 [facility] Comment on above: Order Comment: Speci men Type: BLOOD SPECIMENOrdering Facility: [facility] Address: [address] [place] [address] Result Comment: <200 mg/dL, Desirable 200-239 mg/dL, Borderline high >239 mg/dL, High Performed By: #### 2 4331-1, 50671-6 ####[facility] LABCLIA [id number] [address] Cholesterol in HDL [Mass/Vol] 44 mg/dL Normal >39 [facility] Comment on above: Order Comment: Speci men Type: BLOOD SPECIMENOrdering Facility: [facility] Address: [address] [place] [address] Result Comment: 40-5 9 mg/dL, Acceptable >59 mg/dL, High: Negative risk factor for coronary heart disease <40 mg/dL, Low: Positive risk factor for coronary heart disease Performed By: #### 2 4331-1, 53568-6 ####[facility] LABCLIA [id number] [address] [place] [facility] Cholesterol in LDL [Mass/Vol] 71 mg/dL Normal <100 [facility] Comment on above: Order Comment: Speci men Type: BLOOD SPECIMENOrdering Facility: [facility] Address: [address], [place] [address] Result Comment: <100 mg/dL, Optimal 100-129 mg/dL, Near optimal/above optimal 130-159 mg/dL, Borderline high 160-189 mg/dL, High >189 mg/dL, Very high Secondary prevention optimal LDL Cholesterol levels are recommended to be <70 mg/dL LDL cholesterol is calculated using the Douglass-NIH equation. Performed By: #### 2 4331-1, 32861-3 ####[facility] LABCLIA [id number] [place] [address] [place] Cholesterol in LDL/Cholesterol in HDL [Mass ratio] 1.61 {ratio} Normal <2.54 [facility] Comment on above: Order Comment: Dianne hernández Type: BLOOD SPECIMENOrdering Facility: [facility] Address: [address] [place] [address] Result Comment: Cris doyle: 1. National Cholesterol Education Program ATP III Guideline At-A-Glance Quick Desk Reference: National Heart, Lung, and Blood Cas[place]. National Institutes of Health. 2001: NIH Publication No. 01-3305. 2. An International Atherosclerosis Society position paper: global recommendations for the management of dyslipidemia: executive summary, Atherosclerosis. 2014: 232(2):410-413. Performed By: #### 2 4331-, 57210-7 ####[facility] LABCLIA [id number] [place] [address] [place] Cholesterol in VLDL [Mass/Vol] 25 mg/dL Normal <30 [facility] Comment on above: Order Comment: Dianne hernández Type: BLOOD SPECIMENOrdering Facility: [facility] Address: [address] [place] [address] Performed By: #### 2 4331-1, 65541-1 ####[facility] LABCLIA [id number] [place] [address] [place] Cholesterol non HDL [Mass/Vol] 99 mg/dL Normal <130 [facility] Comment on above: Order Comment: Dianne edgar Type: BLOOD SPECIMENOrdering Facility: [facility] Address: [address] [place] [address] Result Comment: <130 mg/dL, Optimal 130-159 mg/dL, Near optimal/above optimal 160-189 mg/dL, Borderline high 190-219 mg/dL, High >219 mg/dL, Very high Secondary prevention optimal non HDL Cholesterol levels are recommended to be <100 mg/dL Performed By: #### 2 4331-1, 02880-0 ####[facility] LABCLIA [id number] [place] [address] [place] Cholesterol.total/Chol esterol in HDL [Mass ratio] 3.25 {ratio} Normal <5.10 [facility] Comment on above: Order Comment: Speci men Type: BLOOD SPECIMENOrdering Facility: [facility] Address: [address] [place] [address] Performed By: #### 2 4331-1, 92722-4 ####[facility] LABCLIA [id number] [place] [address] [place] FASTING TIME 14 hrs Normal [facility] Comment on above: Order Comment: Speci men Type: BLOOD SPECIMENOrdering Facility: [facility] Address: [address] [place] [address] Performed By: #### 2 4331-1, 75498-6 ####[facility] LABCLIA [id number] [place] [address] [place] Triglyceride [Mass/Vol] 167 mg/dL High <150 [facility] Comment on above: Order Comment: Speci men Type: BLOOD SPECIMENOrdering Facility: [facility] Address: [address] [place] [address] Result Comment: <150 mg/dL, Normal 150-199 mg/dL, Borderline high 200-499 mg/dL, High >499 mg/dL, Very high Performed By: #### 2 4331-1, 43842-5 ####[facility] LABCLIA [id number] [place] [address] [place] Wound Ctr History AND Physic bijan 12-25-2024 Wound Ctr History & Physical [facility] [address] [place] [address] H P Exam - Wound Care 12/25/24 1541 MR#: [id number] Acct: [id number] Name: WILTON KHAN V Rep #: [id number] : 1960 64 From: Sania RICHARDSON PCP: Dr. Nehemiah Herbert MD Status:REG RCR Location: History of Present Illness Date of Service: 12/25/24 Chief Complaint: Pressure ulceration of the left proximal posterior thigh History of Wound: Wilton Khan is a 63 y/o female who presents today for evaluation and management of right posterior thigh ulcerations. She has been seen here previously for similar pressure wounds on her posterior thighs, last time she was here was 12/2023. She has been dealing with these pressure ulcerations in general recurrently over the last 5 years or so. She is morbidly obese with very limited mobility secondary to her weight and severe osteoarthritis of her knees and hips. She ambulates very short distances at home with a rollator but spends most of her time in her wheelchair or recliner. She does not use a bed. Her sister acts as her home health aide and performs her wound care. She reports these particular wounds have been present a few weeks and just are not improving with their care at home. They have been keeping them clean, using a coloplast ointment, and covering with gauze. She is diabetic with an A1c around 7.2 by report. She does not smoke. She does not have any known autoimmune conditions. She does not take any blood thinners. [facility] Medical History COVID-19 Vitamin D deficiency Hyperparathyroidism Immobility Peripheral neuropathy Mixed hyperlipidemia COPD (chronic obstructive pulmonary disease) History of DVT (deep vein thrombosis) SVT (supraventricular tachycardia) Essential hypertension JEREMÍAS treated with BiPAP Pulmonary hypertension Exertional dyspnea Chronic back pain Diabetes mellitus, type II Heart failure Anxiety and depression Sepsis Lumbosacral neuritis Esophageal reflux Morbid obesity Home Medications ???Medication ???Instructions ???Recorded ???Last Taken ???Type duloxetine 60 mg capsule,delayed 60 mg PO DAILY depression 12/02/14 03/02/22 History release aripiprazole 10 mg tablet 10 mg PO QHS Depression 10/21/17 0 03/01/22 History pravastatin 20 mg tablet 20 mg PO QHS cholesterol 04/09/19 03/01/22 History famotidine 40 mg tablet 40 mg PO DAILY stomach 11/08/19 History insulin glargine 100 unit/mL (3 35 unit SQ DAILY blood sugar 11/0703/02/22 History mL) subcutaneous pen hydrocodone-acetaminophen 5-325mg 1 tab PO BID PRN Pain 06/29/20 History 5mg-325mg potassium chloride 10 mEq 10 meq PO DAILY supplement 1 03/02/22 History capsule,extended release acetaminophen 650 mg 650 mg PO TID PRN Pain 09/14/20 History tablet,extended release spironolactone 50 mg tablet 25 mg PO DAILY fluid 09/14/2002/19 History trazodone 100 mg tablet 100 mg PO QHS SLEEP 09/14/2003/01 History cholecalciferol (vitamin D3) 125 125 mcg PO DAILY 03/02/22 03/02/22 History mcg (5,000 unit) tablet (Vitamin D3) furosemide 80 mg tablet 80 mg PO DAILY FLUID 03/02/2202/19 History gabapentin 300 mg capsule 300 mg PO Q12H PAIN 03/02/2203/01 History ibuprofen 200 mg tablet 800 mg PO Q8H PRN Fever 03/02/22 0 03/02/22 07:45 History glucosamine 750 ko-khhgoxrzbpr-gyb 1 tab PO BID 05/17/23 Unknown Hi story no1 644 mg-C 30 mg-gio 1 mg tablet (Osteo Bi-Flex Triple Strength) hydroxyzine pamoate 25 mg capsule 25 mg PO Q8H PRN anxiety 05/17/23 Unknown History ropinirole 0.25 mg tablet 0.25 mg PO QHS 05/17/23 Unknown Hi story tizanidine 4 mg capsule 4 mg PO TID PRN muscle spasticity 05/17/23 Unknown History Allergy/AdvReac Type Severity Reaction Status Date / Time vancomycin Allergy Rash Verified 04/25/24 09:31 atorvastatin AdvReac Severe myalgias Verified 04/25/24 09:31 amlodipine AdvReac Unknown Verified 04/25/24 09:31 atenolol AdvReac Unknown Verified 04/25/24 09:31 bupropion HCl (From AdvReac Unknown Verified 04/25/24 09:31 Wellbutrin) fluoxetine HCl (From Prozac) AdvReac Unknown Verified 04/25/24 09:31 meloxicam (From Mobic) AdvReac Unknown Verified 04/25/24 09:31 metoprolol AdvReac Unknown Verified 04/25/24 09:31 pregabalin (From Lyrica) AdvReac Unknown Verified 04/25/24 09:31 quetiapine fumarate (From AdvReac Unknown Verified 04/25/24 09:31 Seroquel) quinapril HCl (From Accupril) AdvReac Unknown Verified 04/25/24 09:31 risperidone AdvReac Unknown Verified 04/25/24 09:31 rofecoxib (From Vioxx) AdvReac Unknown Verified 04/25/24 09:31 sitagliptin phosphate (From AdvReac Unknown Verified 04/25/24 09:31 Januvia) venlafaxine HCl (From (more content not included)... [facility] 12-23-2024 [facility] MARIOWILTON Phillips ([id number]) 1960 F Date Time Provider Department 12/23/24 9:40 AM [facility] During your visit today, we recorded the following information about you: Temperature Pulse Blood pressure 98.1 degrees 59/minute 116/58 Joi Markham APRN.CNP 12/23/2024 10:33 AM Signed This is a 64 year old female who presents today with: Patient presents with: Edema: Bilateral legs HISTORY OF PRESENT ILLNESS: Wilton Khan is a 64 year old female. Patient presents with: Edema: Bilateral legs The patient is a 64-year-old female with HTN and stage I diastolic dysfunction, presenting for evaluation and management of chronic lower extremity ulcers with cellulitis and persistent edema. Wilton Khan is a 64-year-old female with a history of diastolic dysfunction, presenting for evaluation of lower extremity wounds, edema, and dyspnea. Lower Extremity Wounds: - Chronic wounds on bilateral lower extremities, with open areas developing over the past few weeks. - Multiple sores located on the inner thighs and hip areas. - Describes wounds as painful and deep crater. - No associated fever or chills. - Home health aide assists with bandage changes; wounds not healing as expected. Edema: - Chronic edema in bilateral lower extremities, worse in the evening. - Edema extends to the hips; never completely resolves. - Taking Lasix 80 mg and spironolactone 25 mg daily. - Attempting to walk to reduce swelling, but reports no improvement. Dyspnea: - Dyspnea on exertion. - Occasional palpitations lasting ~20 seconds. - Denies chest pain, cough, or wheezing. Yeast Infection: - Pruritic rash under abdominal fold and inner thighs. - Using a drying powder with minimal relief. - Showering daily and washing affected areas multiple times a day. PAST MEDICAL HISTORY: PAST MEDICAL HISTORY Diagnosis Date Abnormal glandular Papanicolaou smear of cervix 05/30/05 ABNL GLANDULAR PAP SMEAR CERVIX Acute gastritis without mention of hemorrhage Anxiety state, unspecified Arrhythmia Chronic cholecystitis Chronic obstructive pulmonary disease (COPD) ([facility]) Congestive heart failure ([facility]) 10/03/2011 Diabetes ([facility]) diabetes II 2010 Diaphragmatic hernia without mention of obstruction or gangrene Dysthymic disorder Depression (non-psychotic) Esophageal reflux Essential hypertension, benign Generalized OA Hyperprolactinemia ([facility]) 10/13/2005 Localized osteoarthrosis not specified whether primary or secondary, lower leg Major depressive disorder, recurrent episode Mucous polyp of cervix 07/19/05 Other and unspecified anterior pituitary hyperfunction ([facility]) 10/13/05 elevated prolactin level-was normal in 2011 PMH - PAST MEDICAL HISTORY OF sleep apnea PMH - PAST MEDICAL HISTORY OF sleep apnea SVT (supraventricular tachycardia) ([facility]) 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 Type 2 diabetes mellitus without complication, with long-term current use of insulin ([facility]) 12/22/2013 PAST SURGICAL HISTORY Procedure Laterality Date BIOPSY CERVIX SINGLE/MULT/EXCISION OF LESION SPX 07/19/2005 endocervical polyp COLONOSCOPY FLX DX W/COLLJ SPEC WHEN PFRMD 01/09/2012 Colonoscopy repeat 10 years COLPOSCOPY CERVIX UPPER/ADJACENT VAGINA Colposcopy EGD TRANSORAL BIOPSY SINGLE/MULTIPLE 01/16/2007 ESOPHAGOGASTRODUODENOSCOPY TRANSORAL DIAGNOSTIC 01/09/2012 EGD HERNIA REPAIR HX 11/2015 ventral HYSTEROSCOPY DX 12/17/2014 [facility] LAPS SURG CHOLECYSTECTOMY W/CHOLANGIOGRAPHY 05/15/2008 PARATHYROID ALLERGIES Lyrica [Pregabalin], Accupril [Quinapril Hcl], Actos [Pioglitazone], Amlodipine, Atenolol, Atorvastatin, Celebrex [Celecoxib], Effexor [Venlafaxine Hcl], Januvia [Sitagliptin], Metoprolol, Mobic [Meloxicam], Prozac [Fluoxetine Hcl], Remeron [Mirtazapine], Risperidone, Seroquel [Quetiapine Fumarate], Trulicity [Dulaglutide], Vancomycin, Vioxx [Rofecoxib], and Wellbutrin [Bupropion Hcl] MEDICATIONS Current Outpatient Medications Medication Sig Lancets Test blood sugar(s) up to 4 times daily. Dx: Type 2 DM - Controlled E11.9 Insulin: Yes pravastatin (PRAVACHOL) 40 mg tablet Take 1 tablet by mouth daily at bedtime. HYDROcodone-Acetaminophen (NORCO) 7.5-325 mg per tablet 1-2 tablets po q 4 hours prn pain. Max of four tabs/day blood sugar diagnostic (BLOOD GLUCOSE TEST) test strip Test blood sugars up to 4 times daily as directed. Dx: Type 2 DM - Controlled E11.9 Insulin: Yes. hydrOXYzine pamoate (VISTARIL) 25 mg capsule Take 1 capsule by mouth three times a day as needed. CPAP/BIPAP/OTHER Auto biPAP IPAP max 25, EPAP min 12, PS [address] cmH[address] [facility] DULoxetine DR (CYMBALTA) 60 mg capsule Take 1 capsule by mouth once daily. gabapentin (NEURONTIN) 600 mg tablet Take 1 tablet by mouth two times a day for 180 days. rOPINIRole (REQUIP) 0.25 mg t (more content not included)... Normal [facility] 12-09-2024 LIZZIEN Telephone (FAMPWS) -- WILTON KHAN V ([id number]) 1960 F Date Time Provider Department 12/09/24 NEHEMIAH HERBERT During your visit today, we recorded the following information about you: Emily Garcia RN 12/09/2024 9:50 AM Signed Patient calls to report at last OV patient discussed that she is no longer needing her oxygen with Dr. Herbert. Patient contacted [facility] to pick oxygen up but they will not do that with out an order from provider. Patient asking if an order to discontinue the oxygen could be sent to [facility]. Please call patient back at [phone] once faxed so she can follow up with [facility]. LOLY Easton William J, MD 12/09/2024 12:41 PM Signed Printed stop order Brittany Valencia LPN 12/09/2024 1:22 PM Signed Faxed to [facility]. Micaela Reis LPN 12/09/2024 2:19 PM Signed Patient calling questioning where order was faxed to. Aware order was faxed to [facility] as note says below. Allergies As of Date: 12/09/2024 Noted Allergy Reaction LYRICA (PREGABALIN) 08/05/2012 10 - Anaphylaxis Comments: Not sure if accurate. Can take gabapentin. Patient is unsure of reaction. ACCUPRIL (QUINAPRIL HCL) 08/12/2005 5 - Intolerance Comments: dizziness ACTOS (PIOGLITAZONE) 05/14/2020 7 - Swelling AMLODIPINE 04/24/2008 7 - Swelling Comments: Leg edema ATENOLOL 09/29/2010 7 - Swelling ATORVASTATIN 11/01/2017 5 - Intolerance Comments: Muscle cramps and weakness CELEBREX (CELECOXIB) 11/25/2020 7 - Swelling EFFEXOR (VENLAFAXINE HCL) 09/22/2005 Comments: swelling high blood pressure JANUVIA (SITAGLIPTIN) 09/21/2011 8 - GI Upset 14 - Other: See Comments Comments: Patient states she couldn't eat METOPROLOL 09/21/2009 7 - Swelling MOBIC (MELOXICAM) 08/12/2005 8 - GI Upset PROZAC (FLUOXETINE HCL) 08/12/2005 5 - Intolerance Comments: tremor REMERON (MIRTAZAPINE) 11/25/2020 2 - Rash RISPERIDONE 12/22/2009 1 - Mental Status Change SEROQUEL (QUETIAPINE FUMARATE) 10/05/2006 Comments: hypertension,swelling TRULICITY (DULAGLUTIDE) 05/10/2023 5 - Intolerance Comments: Caused nausea and cramps VANCOMYCIN 08/10/2017 9 - Itching 14 - Other: See Comments 2 - Rash Comments: red all over Other reaction(s): Other: See Comments red all over VIOXX (ROFECOXIB) 08/12/2005 8 - GI Upset WELLBUTRIN (BUPROPION HCL) 08/12/2005 5 - Intolerance Comments: nightmares Date Reviewed: 12/01/2024 Reviewed by: Aspen Dean LPN - Fully Assessed Reason for Visit: Orders [681] Primary Visit Diagnosis:Chronic respiratory failure with hypoxia (HCC) [J96.11] Order(s):DME SUPPLY OR ACCESSORY, NOS [[id number]] Order #: [id number] Prescriptions as of 12/09/2024 - Lancets Test blood sugar(s) up to 4 times daily. Dx: Type 2 DM - Controlled E11.9 Insulin: Yes - pravastatin (PRAVACHOL) 40 mg tablet Take 1 tablet by mouth daily at bedtime. - HYDROcodone-Acetaminophen (NORCO) 7.5-325 mg per tablet 1-2 tablets po q 4 hours prn pain. Max of four tabs/day - blood sugar diagnostic (BLOOD GLUCOSE TEST) test strip Test blood sugars up to 4 times daily as directed. Dx: Type 2 DM - Controlled E11.9 Insulin: Yes. - hydrOXYzine pamoate (VISTARIL) 25 mg capsule Take 1 capsule by mouth three times a day as needed. - CPAP/BIPAP/OTHER Auto biPAP IPAP max 25, EPAP min 12, PS 5 cmH2O [facility] - DULoxetine DR (CYMBALTA) 60 mg capsule Take 1 capsule by mouth once daily. - gabapentin (NEURONTIN) 600 mg tablet Take 1 tablet by mouth two times a day for 180 days. - rOPINIRole (REQUIP) 0.25 mg tablet Take 1 tablet by mouth daily at bedtime. - traZODone (DESYREL) 100 mg tablet Take 1 tablet by mouth daily at bedtime. - tiZANidine (ZANAFLEX) 4 mg tablet Take 1 tablet by mouth every 8 hours as needed (muscle spasms). - semaglutide (OZEMPIC) 0.25 mg or 0.5 mg (2 mg/3 mL) pen Inject 0.25 mg subcutaneously one time a week. - famotidine (PEPCID) 40 mg tablet Take 1 tablet by mouth once daily. - Cholecalciferol, Vitamin D3, 125 mcg (5,000 unit) cap Take 1 capsule by mouth once daily. - potassium chloride SR (MICRO-K) 8 mEq cpER Take 1 capsule by mouth daily with breakfast. - ARIPiprazole (ABILIFY) 10 mg tablet Take 1 tablet by mouth once daily. - insulin glargine (LANTUS SOLOSTAR U-100 INSULIN) 100 unit/mL (3 mL) Inject 34 Units subcutaneously every morning. - ibuprofen (MOTRIN) 800 mg tablet Take 1 tablet by mouth every 8 hours as needed for pain. Take with food. - spironolactone (ALDACTONE) 25 mg tablet Take 1 tablet by mouth once daily. - Blood-Glucose Meter,Continuous (DEXCOM G7 ADVANCED REGISTERED NURSE) [facility] Use to check blood sugar at least four (4) times daily. - Blood-Glucose Sensor (DEXCOM G7 SENSOR) jessica Apply new sensor every ten (10) days. - furosemide (LASIX) 80 mg tablet Take 1 tablet by mouth once daily. - bekgocdj-pepw-twn3-C-gio- bosw (OSTEO BI-FLEX TRIPLE STRENGTH) 750 mg-644 (more content not included)... Normal [facility] 12-04-2024 LIZZIEN Telephone (FAMPWS) -- WILTON KHAN V ([id number]) 1960 F Date Time Provider Department 12/04/24 NEHEMIAH HERBERT During your visit today, we recorded the following information about you: Sanjay Rondon RN 12/04/2024 4:22 PM Signed Ike - [facility] reports they received an Rx for [place] with increase frequency from 1 tab 2 x's day to 1-2 tabs q4h prn. Reports this is a potential increase and doesn't mention a maximum daily dose. Asking pcp to verify maximum daily dose for this Rx and reason. Please phone [facility] with reference # [id number] with reply: [phone] Allergies As of Date: 12/04/2024 Noted Allergy Reaction LYRICA (PREGABALIN) 08/05/2012 10 - Anaphylaxis Comments: Not sure if accurate. Can take gabapentin. Patient is unsure of reaction. ACCUPRIL (QUINAPRIL HCL) 08/12/2005 5 - Intolerance Comments: dizziness ACTOS (PIOGLITAZONE) 05/14/2020 7 - Swelling AMLODIPINE 04/24/2008 7 - Swelling Comments: Leg edema ATENOLOL 09/29/2010 7 - Swelling ATORVASTATIN 11/01/2017 5 - Intolerance Comments: Muscle cramps and weakness CELEBREX (CELECOXIB) 11/25/2020 7 - Swelling EFFEXOR (VENLAFAXINE HCL) 09/22/2005 Comments: swelling high blood pressure JANUVIA (SITAGLIPTIN) 09/21/2011 8 - GI Upset 14 - Other: See Comments Comments: Patient states she couldn't eat METOPROLOL 09/21/2009 7 - Swelling MOBIC (MELOXICAM) 08/12/2005 8 - GI Upset PROZAC (FLUOXETINE HCL) 08/12/2005 5 - Intolerance Comments: tremor REMERON (MIRTAZAPINE) 11/25/2020 2 - Rash RISPERIDONE 12/22/2009 1 - Mental Status Change SEROQUEL (QUETIAPINE FUMARATE) 10/05/2006 Comments: hypertension,swelling TRULICITY (DULAGLUTIDE) 05/10/2023 5 - Intolerance Comments: Caused nausea and cramps VANCOMYCIN 08/10/2017 9 - Itching 14 - Other: See Comments 2 - Rash Comments: red all over Other reaction(s): Other: See Comments red all over VIOXX (ROFECOXIB) 08/12/2005 8 - GI Upset WELLBUTRIN (BUPROPION HCL) 08/12/2005 5 - Intolerance Comments: nightmares Date Reviewed: 12/01/2024 Reviewed by: Aspen Dean LPN - Fully Assessed Reason for Visit: Medication Problem [65] Visit Diagnoses:Pain disorder with psychological factors [F45.42] Diffuse myofascial pain syndrome [M79.18] Degeneration of intervertebral disc of lumbar region, unspecified whether pain present [M51.369] Lumbar facet arthropathy [M47.816] Bilateral primary osteoarthritis of knee [M17.0] Order(s):HYDROcodone-Aceta minophen (NORCO) 7.5-325 mg per tablet1-2 tablets po q 4 hours prn pain. Max of four tabs/dayDisp: 60 tabletRfl: 0 Prescriptions as of 12/05/2024 - HYDROcodone-Acetaminophen (NORCO) 7.5-325 mg per tablet 1-2 tablets po q 4 hours prn pain. Max of four tabs/day - blood sugar diagnostic (BLOOD GLUCOSE TEST) test strip Test blood sugars up to 4 times daily as directed. Dx: Type 2 DM - Controlled E11.9 Insulin: Yes. - hydrOXYzine pamoate (VISTARIL) 25 mg capsule Take 1 capsule by mouth three times a day as needed. - CPAP/BIPAP/OTHER Auto biPAP IPAP max 25, EPAP min 12, PS 5 cmH2O [facility] - DULoxetine DR (CYMBALTA) 60 mg capsule Take 1 capsule by mouth once daily. - gabapentin (NEURONTIN) 600 mg tablet Take 1 tablet by mouth two times a day for 180 days. - rOPINIRole (REQUIP) 0.25 mg tablet Take 1 tablet by mouth daily at bedtime. - traZODone (DESYREL) 100 mg tablet Take 1 tablet by mouth daily at bedtime. - tiZANidine (ZANAFLEX) 4 mg tablet Take 1 tablet by mouth every 8 hours as needed (muscle spasms). - semaglutide (OZEMPIC) 0.25 mg or 0.5 mg (2 mg/3 mL) pen Inject 0.25 mg subcutaneously one time a week. - famotidine (PEPCID) 40 mg tablet Take 1 tablet by mouth once daily. - Cholecalciferol, Vitamin D3, 125 mcg (5,000 unit) cap Take 1 capsule by mouth once daily. - potassium chloride SR (MICRO-K) 8 mEq cpER Take 1 capsule by mouth daily with breakfast. - ARIPiprazole (ABILIFY) 10 mg tablet Take 1 tablet by mouth once daily. - insulin glargine (LANTUS SOLOSTAR U-100 INSULIN) 100 unit/mL (3 mL) Inject 34 Units subcutaneously every morning. - ibuprofen (MOTRIN) 800 mg tablet Take 1 tablet by mouth every 8 hours as needed for pain. Take with food. - pravastatin (PRAVACHOL) 40 mg tablet Take 1 tablet by mouth daily at bedtime. - spironolactone (ALDACTONE) 25 mg tablet Take 1 tablet by mouth once daily. - Blood-Glucose Meter,Continuous (DEXCOM G7 ADVANCED REGISTERED NURSE) [facility] Use to check blood sugar at least four (4) times daily. - Blood-Glucose Sensor (DEXCOM G7 SENSOR) jessica Apply new sensor every ten (10) days. - furosemide (LASIX) 80 mg tablet Take 1 tablet by mouth once daily. - lniaqhet-pazj-bkd5-C-gio- bosw (OSTEO BI-FLEX TRIPLE STRENGTH) 750 mg-644 mg- 30 mg-1 mg tab Take 1 tablet by mouth two times a day. - acetaminophen (ARTHRITIS PAIN RELIEF) 650 mg CR tablet Take 2 tablets by m (more content not included)... Normal [facility] 12-01-2024 [facility] Office Visit ([facility] ) -- WILTON KHAN V ([id number]) 1960 F Date Time Provider Department 12/01/24 11:00 AM [facility] During your visit today, we recorded the following information about you: Pulse Respiration Blood pressure 70/minute 16/minute 122/59 Vero Mills APRN.OIL FIELD ROUSTABOUT 12/01/2024 11:41 AM Signed [facility] Follow up/ Established patient visit Recording using ambient AI software for draft documentation of the visit was discussed with the patient/authorized unit support representative; all questions welcomed and answered. Patient/authorized unit support representative agreed to proceed Assessment/Plan from last visit: Date of last visit : 08/18/24 IMPRESSION/PLAN: G47.33 Obstructive sleep apnea G25.81 Restless legs syndrome Wilton Khan is a delightful 64 year old female with JEREMÍAS, hx of biPAP use which she found beneficial, hasn't used PAP due to anxiety and sleeping in recliner rather than bed 1. Obstructive sleep apnea (G47.33) Patient has a history of obstructive sleep apnea managed with BiPAP therapy. Recently, patient has not been using the BiPAP due to anxiety and feelings of being smothered when using the device. Patient reports significant improvement in energy levels and reduction in daytime sleepiness when using the BiPAP consistently. Current BiPAP machine was replacement device during [employer] recall. Patient's oxygen saturation levels dropped during a previous hospital stay without the BiPAP, leading to the prescription of home oxygen therapy, which patient reports is no longer needed--that was in 2022, from [facility]. Patient experiences frequent nocturia and fragmented sleep, likely due to untreated sleep apnea. Patient's BiPAP settings are unclear, with patient reporting a possible setting of 16-20 cm H2O, raising concerns that the device may be functioning as a CPAP rather than a BiPAP. Recommendation from 2016 PAP titration study was biPAP 16/12 cmH2O. - Advised patient to resume BiPAP use and relocate the machine to the recliner where patient currently sleeps. She feels confident she will be able to do this. Continue trazodone at HS. Continue gospel music on TV. - Ordered a prescription for BiPAP supplies through [employer] in [place] - Scheduled a follow-up appointment for patient to bring in the BiPAP machine and power cord for data review in one monh. - Patient to check and report the serial number and current settings of the BiPAP machine via [employer]. - Will coordinate with [employer] to obtain a usage report from the BiPAP machine--or at least to confirm which device/settings she has. - Discussed the possibility of conducting an overnight pulse oximetry test at home to assess oxygen levels while using the BiPAP. - Educated patient on the importance of consistent BiPAP use to improve sleep quality, reduce nocturia, and enhance overall cognitive function. - Check [facility] for original PSG report 2. Restless legs syndrome (G25.81) Patient is currently taking ropinirole at bedtime, which has been effective in managing symptoms. However, patient reports increased leg movements and discomfort, likely exacerbated by the discontinuation of BiPAP use. - Continue ropinirole at bedtime. - Advised patient that resuming BiPAP use may help reduce leg movements during sleep. - Monitor symptoms and adjust treatment as necessary based on the effectiveness of BiPAP therapy. Vero Mills APRN.[facility] CURRENT VISIT: 12/01/2024 The patient is a 64-year-old female with JEREMÍAS presenting with poor sleep quality and concerns about her BiPAP machine. The patient reports poor sleep quality characterized by frequent awakenings throughout the night. She typically goes to bed around 1830, falls asleep quickly, and sleeps in a recliner. She wakes up 8-10 times nightly, sometimes to use the bathroom but often without a clear reason, and is usually awake for the day by 0400. She notes that while she spends many hours in the recliner, she does not feel she is getting restful sleep. She is currently using a BiPAP machine with a full-face mask and pressures of 20/16. She reports some benefit from the machine but feels it does not provide enough pressure. Per download the residual AHI is normalized. She also reports issues with the machine's display. She has been told by the equipment provider that her machine is outdated and needs replacement, but was unable to attend her last appointment due to transportation issues. She uses trazodone, which helps her fall asleep initially. SLEEP APNEA Sleep apnea type : JEREMÍAS, Most Recent Apnea-Hypopnea Index (AHI): 44 Treatment : PAP therapy [employer]: [employer] PAP History: Current PAP settin/16 cm H2O. Difficulties with Bilevel PAP: None Reviewed o (more content not included)... Normal [facility] 12-01-2024 LIZZIEN Telephone (SLEWST) -- WILTON KHAN V ([id number]) 1960 F Date Time Provider Department 12/01/24 [facility] During your visit today, we recorded the following information about you: Aspen Dean LPN 12/01/2024 3:05 PM Signed Forwarded signed OV note along with orders for new device to [facility] (patient's current DME). Aspen Dean LPN Allergies As of Date: 12/01/2024 Noted Allergy Reaction LYRICA (PREGABALIN) 08/05/2012 10 - Anaphylaxis Comments: Not sure if accurate. Can take gabapentin. Patient is unsure of reaction. ACCUPRIL (QUINAPRIL HCL) 08/12/2005 5 - Intolerance Comments: dizziness ACTOS (PIOGLITAZONE) 05/14/2020 7 - Swelling AMLODIPINE 04/24/2008 7 - Swelling Comments: Leg edema ATENOLOL 09/29/2010 7 - Swelling ATORVASTATIN 11/01/2017 5 - Intolerance Comments: Muscle cramps and weakness CELEBREX (CELECOXIB) 11/25/2020 7 - Swelling EFFEXOR (VENLAFAXINE HCL) 09/22/2005 Comments: swelling high blood pressure JANUVIA (SITAGLIPTIN) 09/21/2011 8 - GI Upset 14 - Other: See Comments Comments: Patient states she couldn't eat METOPROLOL 09/21/2009 7 - Swelling MOBIC (MELOXICAM) 08/12/2005 8 - GI Upset PROZAC (FLUOXETINE HCL) 08/12/2005 5 - Intolerance Comments: tremor REMERON (MIRTAZAPINE) 11/25/2020 2 - Rash RISPERIDONE 12/22/2009 1 - Mental Status Change SEROQUEL (QUETIAPINE FUMARATE) 10/05/2006 Comments: hypertension,swelling TRULICITY (DULAGLUTIDE) 05/10/2023 5 - Intolerance Comments: Caused nausea and cramps VANCOMYCIN 08/10/2017 9 - Itching 14 - Other: See Comments 2 - Rash Comments: red all over Other reaction(s): Other: See Comments red all over VIOXX (ROFECOXIB) 08/12/2005 8 - GI Upset WELLBUTRIN (BUPROPION HCL) 08/12/2005 5 - Intolerance Comments: nightmares Date Reviewed: 12/01/2024 Reviewed by: Aspen Dean LPN - Fully Assessed Reason for Visit: Orders [681] Cmt: Orders along with today's signed OV note forwarded to [phone] Prescriptions as of 12/12/2024 - Lancets Test blood sugar(s) up to 4 times daily. Dx: Type 2 DM - Controlled E11.9 Insulin: Yes - pravastatin (PRAVACHOL) 40 mg tablet Take 1 tablet by mouth daily at bedtime. - HYDROcodone-Acetaminophen (NORCO) 7.5-325 mg per tablet 1-2 tablets po q 4 hours prn pain. Max of four tabs/day - blood sugar diagnostic (BLOOD GLUCOSE TEST) test strip Test blood sugars up to 4 times daily as directed. Dx: Type 2 DM - Controlled E11.9 Insulin: Yes. - hydrOXYzine pamoate (VISTARIL) 25 mg capsule Take 1 capsule by mouth three times a day as needed. - CPAP/BIPAP/OTHER Auto biPAP IPAP max 25, EPAP min 12, PS 5 cmH2O [facility] - DULoxetine DR (CYMBALTA) 60 mg capsule Take 1 capsule by mouth once daily. - gabapentin (NEURONTIN) 600 mg tablet Take 1 tablet by mouth two times a day for 180 days. - rOPINIRole (REQUIP) 0.25 mg tablet Take 1 tablet by mouth daily at bedtime. - traZODone (DESYREL) 100 mg tablet Take 1 tablet by mouth daily at bedtime. - tiZANidine (ZANAFLEX) 4 mg tablet Take 1 tablet by mouth every 8 hours as needed (muscle spasms). - semaglutide (OZEMPIC) 0.25 mg or 0.5 mg (2 mg/3 mL) pen Inject 0.25 mg subcutaneously one time a week. - famotidine (PEPCID) 40 mg tablet Take 1 tablet by mouth once daily. - Cholecalciferol, Vitamin D3, 125 mcg (5,000 unit) cap Take 1 capsule by mouth once daily. - potassium chloride SR (MICRO-K) 8 mEq cpER Take 1 capsule by mouth daily with breakfast. - ARIPiprazole (ABILIFY) 10 mg tablet Take 1 tablet by mouth once daily. - insulin glargine (LANTUS SOLOSTAR U-100 INSULIN) 100 unit/mL (3 mL) Inject 34 Units subcutaneously every morning. - ibuprofen (MOTRIN) 800 mg tablet Take 1 tablet by mouth every 8 hours as needed for pain. Take with food. - spironolactone (ALDACTONE) 25 mg tablet Take 1 tablet by mouth once daily. - Blood-Glucose Meter,Continuous (DEXCOM G7 ADVANCED REGISTERED NURSE) [facility] to check blood sugar at least four (4) times daily. - Blood-Glucose Sensor (DEXCOM G7 SENSOR) jessica Apply new sensor every ten (10) days. - furosemide (LASIX) 80 mg tablet Take 1 tablet by mouth once daily. - ictrmcuy-xnux-cfm6-C-gio- bosw (OSTEO BI-FLEX TRIPLE STRENGTH) 750 mg-644 mg- 30 mg-1 mg tab Take 1 tablet by mouth two times a day. - acetaminophen (ARTHRITIS PAIN RELIEF) 650 mg CR tablet Take 2 tablets by mouth every 8 hours as needed for pain. Not in same 8h period as [place] (hydrocodone Tylenol) - Insulin [place], Disposable, (BD ULTRA-FINE MADI PEN NEEDLE) 32 gauge x Use one needle for each dose. 2/day. - Disposable Gloves (DISPOSABLE LATEX-FREE GLOVES) [facility] Box once every month. - Adhesive Bandage ([place] DRESSING) 6 X 6 bndg Apply to affected area once daily. - Miscellaneous Medical Supply Collagen dressing 2x2 - ascorbic acid (VITAMIN C ORAL) Take 1 tablet by mouth once da (more content not included)... Normal [facility] Telephone (CANDEWS) -- WILTON KHAN V ([id number]) 1960 F Date Time Provider Department 12/01/24 PIEDAD, NEHEMIAH J FAMPWS During your visit today, we recorded the following information about you: Belgica Canas 12/01/2024 8:07 AM Signed Wilton is a patient of Nehemiah Herbert MD today to request medication, not on current list: Disp Refills Start End HYDROcodone-Acetaminophen (NORCO) 7.5-325 mg per tablet 60 tablet 0 10/10/2024 11/09/2024 Sig: Take 1 tablet by mouth two times a day as needed for pain for up to 30 days. Sent to pharmacy as: HYDROcodone-Acetaminophen (NORCO) 7.5-325 mg per tablet Class: Normal Earliest Fill Date: 10/10/2024 Route: ORAL Order: [id number] E-Prescribing Status: Receipt confirmed by pharmacy (10/10/2024 12:39 PM EDT) Please send to [facility]. Patient has been identified by name and birthdate. Duration of symptoms: N/A Person calling: self Call patient at: on cell Was an appointment scheduled: No Closing statement: Results or non-symptom based questions: Thank you for calling [facility], your call will be returned within the next business day. Nehemiah Bill MD 12/01/2024 8:52 AM Signed Oarrs done. Has pain contract on file and had performed tox screen. Rx sent. Allergies As of Date: 12/01/2024 Noted Allergy Reaction LYRICA (PREGABALIN) 08/05/2012 10 - Anaphylaxis Comments: Not sure if accurate. Can take gabapentin. Patient is unsure of reaction. ACCUPRIL (QUINAPRIL HCL) 08/12/2005 5 - Intolerance Comments: dizziness ACTOS (PIOGLITAZONE) 05/14/2020 7 - Swelling AMLODIPINE 04/24/2008 7 - Swelling Comments: Leg edema ATENOLOL 09/29/2010 7 - Swelling ATORVASTATIN 11/01/2017 5 - Intolerance Comments: Muscle cramps and weakness CELEBREX (CELECOXIB) 11/25/2020 7 - Swelling EFFEXOR (VENLAFAXINE HCL) 09/22/2005 Comments: swelling high blood pressure JANUVIA (SITAGLIPTIN) 09/21/2011 8 - GI Upset 14 - Other: See Comments Comments: Patient states she couldn't eat METOPROLOL 09/21/2009 7 - Swelling MOBIC (MELOXICAM) 08/12/2005 8 - GI Upset PROZAC (FLUOXETINE HCL) 08/12/2005 5 - Intolerance Comments: tremor REMERON (MIRTAZAPINE) 11/25/2020 2 - Rash RISPERIDONE 12/22/2009 1 - Mental Status Change SEROQUEL (QUETIAPINE FUMARATE) 10/05/2006 Comments: hypertension,swelling TRULICITY (DULAGLUTIDE) 05/10/2023 5 - Intolerance Comments: Caused nausea and cramps VANCOMYCIN 08/10/2017 9 - Itching 14 - Other: See Comments 2 - Rash Comments: red all over Other reaction(s): Other: See Comments red all over VIOXX (ROFECOXIB) 08/12/2005 8 - GI Upset WELLBUTRIN (BUPROPION HCL) 08/12/2005 5 - Intolerance Comments: nightmares Date Reviewed: 10/17/2024 Reviewed by: Nehemiah Herbert MD - Fully Assessed Reason for Visit: Medication Request [138] Cmt: [place] Primary Visit Diagnosis: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 - DULoxetine DR (CYMBALTA) 60 mg capsule Take 1 capsule by mouth once daily. - gabapentin (NEURONTIN) 600 mg tablet Take 1 tablet by mouth two times a day for 180 days. - rOPINIRole (REQUIP) 0.25 mg tablet Take 1 tablet by mouth daily at bedtime. - traZODone (DESYREL) 100 mg tablet Take 1 tablet by mouth daily at bedtime. - tiZANidine (ZANAFLEX) 4 mg tablet Take 1 tablet by mouth every 8 hours as needed (muscle spasms). - semaglutide (OZEMPIC) 0.25 mg or 0.5 mg (2 mg/3 mL) pen Inject 0.25 mg subcutaneously one time a week. - famotidine (PEPCID) 40 mg tablet Take 1 tablet by mouth once daily. - Cholecalciferol, Vitamin D3, 125 mcg (5,000 unit) cap Take 1 capsule by mouth once daily. - potassium chloride SR (MICRO-K) 8 mEq cpER Take 1 capsule by mouth daily with breakfast. - ARIPiprazole (ABILIFY) 10 mg tablet Take 1 tablet by mouth once daily. - insulin glargine (LANTUS SOLOSTAR U-100 INSULIN) 100 unit/mL (3 mL) Inject 34 Units subcutaneously every morning. - ibuprofen (MOTRIN) 800 mg tablet Take 1 tablet by mouth every 8 hours as needed for pain. Take with food. - CPAP/BIPAP/OTHER Auto biPAP IPAP max 25, EPAP min 12, PS 5 cmH2O [facility] - pravastatin (PRAVACHOL) 40 mg tablet Take 1 tablet by mouth daily at bedtime. - spironolactone (ALDACTONE) 25 mg tablet Take 1 tablet by mouth once daily. - Blood-Glucose Meter,Continuous (DEXCOM G7 ADVANCED REGISTERED NURSE) m (more content not included)... Normal [facility]20[facility] -- WILTON KHAN V ([id number]) 1960 F Date Time Provider Department 10/23/24 NEHEMIAH HERBERT During your visit today, we recorded the following information about you: Yokasta Reese, LOLY 10/23/2024 11:25 AM Signed [employer] Bobbin Washer with [facility] section called to and reports their pharmacy wanted to know if the provider wanted them to titrate the Ozempic up to the 0.5 mg after 4 weeks of the Pt being on the medication. He is asking if they could get a call back at # [phone] and you will need to give them Ref # [id number]. LOLY Cruz Jacqueline A, APRN.[employer] 10/23/2024 12:29 PM Signed No. Pt. Was intolerant to Trulicity and has follow up to evaluate her tolerance to Ozempic in Nov. Please keep current dose. Yokasta Reese RN 10/23/2024 12:38 PM Signed Will need to call back they could not hear me. LOLY Cruz Amanda, RN 10/23/2024 4:50 PM Signed Laura [facility] with [facility] called and is notified of providers message and instructions. She voices understanding. Yokasta Reese RN Allergies As of Date: 10/23/2024 Noted Allergy Reaction LYRICA (PREGABALIN) 08/05/2012 10 - Anaphylaxis Comments: Not sure if accurate. Can take gabapentin. Patient is unsure of reaction. ACCUPRIL (QUINAPRIL HCL) 08/12/2005 5 - Intolerance Comments: dizziness ACTOS (PIOGLITAZONE) 05/14/2020 7 - Swelling AMLODIPINE 04/24/2008 7 - Swelling Comments: Leg edema ATENOLOL 09/29/2010 7 - Swelling ATORVASTATIN 11/01/2017 5 - Intolerance Comments: Muscle cramps and weakness CELEBREX (CELECOXIB) 11/25/2020 7 - Swelling EFFEXOR (VENLAFAXINE HCL) 09/22/2005 Comments: swelling high blood pressure JANUVIA (SITAGLIPTIN) 09/21/2011 8 - GI Upset 14 - Other: See Comments Comments: Patient states she couldn't eat METOPROLOL 09/21/2009 7 - Swelling MOBIC (MELOXICAM) 08/12/2005 8 - GI Upset PROZAC (FLUOXETINE HCL) 08/12/2005 5 - Intolerance Comments: tremor REMERON (MIRTAZAPINE) 11/25/2020 2 - Rash RISPERIDONE 12/22/2009 1 - Mental Status Change SEROQUEL (QUETIAPINE FUMARATE) 10/05/2006 Comments: hypertension,swelling TRULICITY (DULAGLUTIDE) 05/10/2023 5 - Intolerance Comments: Caused nausea and cramps VANCOMYCIN 08/10/2017 9 - Itching 14 - Other: See Comments 2 - Rash Comments: red all over Other reaction(s): Other: See Comments red all over VIOXX (ROFECOXIB) 08/12/2005 8 - GI Upset WELLBUTRIN (BUPROPION HCL) 08/12/2005 5 - Intolerance Comments: nightmares Date Reviewed: 10/17/2024 Reviewed by: Nehemiah Herbert MD - Fully Assessed Reason for Visit: Medication Question [3288] Prescriptions as of 10/23/2024 - semaglutide (OZEMPIC) 0.25 mg or 0.5 mg (2 mg/3 mL) pen Inject 0.25 mg subcutaneously one time a week. - famotidine (PEPCID) 40 mg tablet Take 1 tablet by mouth once daily. - Cholecalciferol, Vitamin D3, 125 mcg (5,000 unit) cap Take 1 capsule by mouth once daily. - potassium chloride SR (MICRO-K) 8 mEq cpER Take 1 capsule by mouth daily with breakfast. - ARIPiprazole (ABILIFY) 10 mg tablet Take 1 tablet by mouth once daily. - HYDROcodone-Acetaminophen (NORCO) 7.5-325 mg per tablet Take 1 tablet by mouth two times a day as needed for pain for up to 30 days. - insulin glargine (LANTUS SOLOSTAR U-100 INSULIN) 100 unit/mL (3 mL) Inject 34 Units subcutaneously every morning. - ibuprofen (MOTRIN) 800 mg tablet Take 1 tablet by mouth every 8 hours as needed for pain. Take with food. - CPAP/BIPAP/OTHER Auto biPAP IPAP max 25, EPAP min 12, PS 5 cmH2O [facility] - pravastatin (PRAVACHOL) 40 mg tablet Take 1 tablet by mouth daily at bedtime. - tiZANidine (ZANAFLEX) 4 mg tablet Take 1 tablet by mouth every 8 hours as needed (muscle spasms). - spironolactone (ALDACTONE) 25 mg tablet Take 1 tablet by mouth once daily. - traZODone (DESYREL) 100 mg tablet Take 1 tablet by mouth daily at bedtime. - DULoxetine (CYMBALTA) 60 mg capsule Take 1 capsule by mouth once daily. - rOPINIRole (REQUIP) 0.25 mg tablet Take 1 tablet by mouth daily at bedtime. - gabapentin (NEURONTIN) 600 mg tablet Take 1 tablet by mouth two times a day for 180 days. - Blood-Glucose Meter,Continuous (DEXCOM G7 ADVANCED REGISTERED NURSE) [facility] [place] to check blood sugar at least four (4) times daily. - Blood-Glucose Sensor (DEXCOM G7 SENSOR) jessica Apply new sensor every ten (10) days. - hydrOXYzine pamoate (VISTARIL) 25 mg capsule Take 1 capsule by mouth three times a day as needed. - furosemide (LASIX) 80 mg tablet Take 1 tablet by mouth once daily. - giujvnrz-fouy-mfz7-C-gio- bosw (OSTEO BI-FLEX TRIPLE STRENGTH) 750 mg-644 mg- 30 mg-1 mg tab Take 1 tablet by mouth two times a day. - acetaminophen (ARTHRITIS PAIN RELIEF) 650 mg CR tablet Take 2 tablets by mouth every 8 hours as needed (more content not included)... Normal [facility] CNOVon 10-17-2024 CNOV Office Visit (FAMPWS ) -- WILTON KHAN V ([id number]) 1960 F Date Time Provider Department 10/17/24 9:00 AM NEHEMIAH HERBERTPWS During your visit today, we recorded the following information about you: Pulse Blood pressure 63/minute 118/82 Nehemiah Herbert MD 10/17/2024 9:33 AM Signed - Continue taking [place] only as needed at your current dose; refill has been sent to your pharmacy. - Keep using gabapentin, Requip, trazodone for sleep, and your prescribed diuretic; do not restart Topamax since you have no headaches. - Continue BiPAP nightly and attend your scheduled visit with MATERNITY NURSE [place] to obtain a replacement machine. - Begin a low dose of ozempic for weight loss; prescription sent to [facility]. Monitor for any nausea or bowel changes and report concerns. - Weigh yourself daily; if your weight rises by more than 4 pounds in 24 hours, call the office. - Elevate your legs when swelling increases and limit salt intake; try support hose or compression wraps if you?re able. - In 2 months, come in for a follow-up visit. Have fasting labs drawn immediately before your appointment: A1c, liver function tests, and a lipid panel. Nehemiah Herbert MD 10/17/2024 12:23 PM Signed The patient is a 64-year-old female with hypertension, type 2 diabetes mellitus, hyperlipidemia, osteoarthritis, and cervical and lumbar degenerative disc disease, presenting for follow-up and evaluation of chronic pain management. HPI Chronic Pain: - Chronic knee arthritis and cervical/lumbar degenerative disc disease. - Pain management with [place]; Wilton reports improved pain control and functionality. - Pain is tolerable most days; Wilton does not require nortriptyline. - Recent OARS report and refill in August. - Pain agreement signed in July; recent tox screen in May. DM: - Last A1c was 7.2% on 08/18. - Previous use of Trulicity caused nausea and cramps. - Wilton denies family history of thyroid cancer. JEREMÍAS: - Uses BiPAP; Wilton reports machine malfunction. - Scheduled follow-up with [facility] NP, for a new machine. Edema: - Persistent edema, fluctuates throughout the day. - Weight decreased by 9 lbs after increasing diuretic dosage. - Current weight: 380 lbs. - Wilton denies weight gain; monitors weight regularly. - Wilton denies bowel or urinary issues. Mental Health: - Wilton reports feeling well mentally. - No issues with mood or headaches. - Taking trazodone for sleep. Additional History: - Wilton denies chest pain, dyspnea, or palpitations. - No longer using oxygen. - Wilton denies skin issues. MEDICATIONS: Current Outpatient Medications Medication Sig semaglutide (OZEMPIC) 0.25 mg or 0.5 mg (2 mg/3 mL) pen Inject 0.25 mg subcutaneously one time a week. famotidine (PEPCID) 40 mg tablet Take 1 tablet by mouth once daily. Cholecalciferol, Vitamin D3, 125 mcg (5,000 unit) cap Take 1 capsule by mouth once daily. potassium chloride SR (MICRO-K) 8 mEq cpER Take 1 capsule by mouth daily with breakfast. ARIPiprazole (ABILIFY) 10 mg tablet Take 1 tablet by mouth once daily. HYDROcodone-Acetaminophen (NORCO) 7.5-325 mg per tablet Take 1 tablet by mouth two times a day as needed for pain for up to 30 days. insulin glargine (LANTUS SOLOSTAR U-100 INSULIN) 100 unit/mL (3 mL) Inject 34 Units subcutaneously every morning. ibuprofen (MOTRIN) 800 mg tablet Take 1 tablet by mouth every 8 hours as needed for pain. Take with food. CPAP/BIPAP/OTHER Auto biPAP IPAP max 25, EPAP min 12, PS 5 cmH2O [facility] pravastatin (PRAVACHOL) 40 mg tablet Take 1 tablet by mouth daily at bedtime. tiZANidine (ZANAFLEX) 4 mg tablet Take 1 tablet by mouth every 8 hours as needed (muscle spasms). spironolactone (ALDACTONE) 25 mg tablet Take 1 tablet by mouth once daily. traZODone (DESYREL) 100 mg tablet Take 1 tablet by mouth daily at bedtime. DULoxetine (CYMBALTA) 60 mg capsule Take 1 capsule by mouth once daily. rOPINIRole (REQUIP) 0.25 mg tablet Take 1 tablet by mouth daily at bedtime. gabapentin (NEURONTIN) 600 mg tablet Take 1 tablet by mouth two times a day for 180 days. Blood-Glucose Meter,Continuous (DEXCOM G7 ADVANCED REGISTERED NURSE) [facility] [place] to check blood sugar at least four (4) times daily. Blood-Glucose Sensor (DEXCOM G7 SENSOR) jessica Apply new sensor every ten (10) days. hydrOXYzine pamoate (VISTARIL) 25 mg capsule Take 1 capsule by mouth three times a day as needed. furosemide (LASIX) 80 mg tablet Take 1 tablet by mouth once daily. ojaifbaz-owry-qsv9-C-gio- bosw (OSTEO BI-FLEX TRIPLE STRENGTH) 750 mg-644 mg- 30 mg-1 mg tab Take 1 tablet by mouth two times a day. acetaminophen (ARTHRITIS PAIN RELIEF) 650 mg CR tablet Take 2 tablets by mouth every 8 hours as needed for pain. Not in same 8h period as [place] (hydrocodone Tylenol) blood sugar diagnostic (BLOOD G (more content not included)... Normal [facility] 10-09-2024 [facility] -- WILTON KHAN V ([id number]) 1960 F Date Time Provider Department 10/09/24 NEHEMIAH HERBERT [facility] During your visit today, we recorded the following information about you: Christal Rasmussen RN 10/09/2024 4:44 PM Addendum Patient calling to ask if she can increase her water pill for a few days. States she has gained 6 lbs in 2 days. Has increased lower extremity edema. Currently 389 lbs. States she has CHF and has been sitting in a wheelchair more this week at a daycare center, not elevating her legs. Reports mild Shortness of Breath. No chest pain. States legs feel like they are burning but they are not red and not hot. Fasting sugar this morning was 168. No other sx's. Pt aware to proceed to ER for severe sx's as discussed during call. Pt requests Dr. Herbert to address this only. Aware he is out today, back tomorrow. LOLY Hedrick Amanda, RN 10/09/2024 7:06 PM Signed Called and left a voicemail for the Patient to call back and ask for a nurse to receive the providers message. Need to let Pt know, Can take an extra dose tonight and tomorrow morning. Call if worsens or does not improve. LOLY Cruz Amanda, RN 10/09/2024 7:11 PM Signed Pt called and is notified of providers message and instructions. Pt voices understanding. Yokasta Reese RN Allergies As of Date: 10/09/2024 Noted Allergy Reaction LYRICA (PREGABALIN) 08/05/2012 10 - Anaphylaxis Comments: Not sure if accurate. Can take gabapentin. Patient is unsure of reaction. ACCUPRIL (QUINAPRIL HCL) 08/12/2005 5 - Intolerance Comments: dizziness ACTOS (PIOGLITAZONE) 05/14/2020 7 - Swelling AMLODIPINE 04/24/2008 7 - Swelling Comments: Leg edema ATENOLOL 09/29/2010 7 - Swelling ATORVASTATIN 11/01/2017 5 - Intolerance Comments: Muscle cramps and weakness CELEBREX (CELECOXIB) 11/25/2020 7 - Swelling EFFEXOR (VENLAFAXINE HCL) 09/22/2005 Comments: swelling high blood pressure JANUVIA (SITAGLIPTIN) 09/21/2011 8 - GI Upset 14 - Other: See Comments Comments: Patient states she couldn't eat METOPROLOL 09/21/2009 7 - Swelling MOBIC (MELOXICAM) 08/12/2005 8 - GI Upset PROZAC (FLUOXETINE HCL) 08/12/2005 5 - Intolerance Comments: tremor REMERON (MIRTAZAPINE) 11/25/2020 2 - Rash RISPERIDONE 12/22/2009 1 - Mental Status Change SEROQUEL (QUETIAPINE FUMARATE) 10/05/2006 Comments: hypertension,swelling TRULICITY (DULAGLUTIDE) 05/10/2023 5 - Intolerance Comments: Caused nausea and cramps VANCOMYCIN 08/10/2017 9 - Itching 14 - Other: See Comments 2 - Rash Comments: red all over Other reaction(s): Other: See Comments red all over VIOXX (ROFECOXIB) 08/12/2005 8 - GI Upset WELLBUTRIN (BUPROPION HCL) 08/12/2005 5 - Intolerance Comments: nightmares Date Reviewed: 08/18/2024 Reviewed by: Brittany Valencia LPN - Fully Assessed Reason for Visit: Patient Request [1696] Prescriptions as of 10/10/2024 - insulin glargine (LANTUS SOLOSTAR U-100 INSULIN) 100 unit/mL (3 mL) Inject 34 Units subcutaneously every morning. - ibuprofen (MOTRIN) 800 mg tablet Take 1 tablet by mouth every 8 hours as needed for pain. Take with food. - topiramate (TOPAMAX) 25 mg tablet Take 1 tablet by mouth once daily. - CPAP/BIPAP/OTHER Auto biPAP IPAP max 25, EPAP min 12, PS 5 cmH2O [facility] - pravastatin (PRAVACHOL) 40 mg tablet Take 1 tablet by mouth daily at bedtime. - tiZANidine (ZANAFLEX) 4 mg tablet Take 1 tablet by mouth every 8 hours as needed (muscle spasms). - spironolactone (ALDACTONE) 25 mg tablet Take 1 tablet by mouth once daily. - ARIPiprazole (ABILIFY) 10 mg tablet Take 1 tablet by mouth once daily. - traZODone (DESYREL) 100 mg tablet Take 1 tablet by mouth daily at bedtime. - DULoxetine (CYMBALTA) 60 mg capsule Take 1 capsule by mouth once daily. - rOPINIRole (REQUIP) 0.25 mg tablet Take 1 tablet by mouth daily at bedtime. - gabapentin (NEURONTIN) 600 mg tablet Take 1 tablet by mouth two times a day for 180 days. - Blood-Glucose Meter,Continuous (DEXExam18 G7 ADVANCED REGISTERED NURSE) misc Use to check blood sugar at least four (4) times daily. - Blood-Glucose Sensor (DEXCOM G7 SENSOR) jessica Apply new sensor every ten (10) days. - hydrOXYzine pamoate (VISTARIL) 25 mg capsule Take 1 capsule by mouth three times a day as needed. - potassium chloride SR (MICRO-K) 8 mEq cpER Take 1 capsule by mouth daily with breakfast. - furosemide (LASIX) 80 mg tablet Take 1 tablet by mouth once daily. - famotidine (PEPCID) 40 mg tablet Take 1 tablet by mouth once daily. - Cholecalciferol, Vitamin D3, 125 mcg (5,000 unit) cap Take 1 capsule by mouth once daily. - bmozfsaz-djlf-ozc8-C-gio- bosw (OSTEO BI-FLEX TRIPLE STRENGTH) 750 mg-644 mg- 30 mg-1 mg tab Take 1 tablet by mouth two times a day. - acetaminophen (ARTHRITIS PAIN RELIEF) 650 mg CR tablet Take 2 tablets by mouth every 8 hours (more content not included)... Normal [facility] 09-17-2024 [facility] Telephone ([facility]) -- WILTON KHAN V ([id number]) 1960 F Date Time Provider Department 09/17/24 NEHEMIAH HERBERT During your visit today, we recorded the following information about you: Micaela Reis LPN 09/17/2024 2:56 PM Signed Patient calling with blood sugar readings, Lantus insulin increased to 32 units. all readings are fasting daily 09/03 127 17 150 09/05 165 09/06 160 09/07 155 09/08 161 09/09 150 09/10 160 09/11 165 09/12 155 09/13 160 09/14 128 09/15 140 09/16 150 09/17 forgot to do today Nehemiah Herbert MD 09/17/2024 5:17 PM Signed Have her increase her lantus to 34 units a day. Send a list of sugars in one week Brittany Valencia LPN 09/17/2024 5:31 PM Signed Patient notified. Allergies As of Date: 09/17/2024 Noted Allergy Reaction LYRICA (PREGABALIN) 08/05/2012 10 - Anaphylaxis Comments: Not sure if accurate. Can take gabapentin. Patient is unsure of reaction. ACCUPRIL (QUINAPRIL HCL) 08/12/2005 5 - Intolerance Comments: dizziness ACTOS (PIOGLITAZONE) 05/14/2020 7 - Swelling AMLODIPINE 04/24/2008 7 - Swelling Comments: Leg edema ATENOLOL 09/29/2010 7 - Swelling ATORVASTATIN 11/01/2017 5 - Intolerance Comments: Muscle cramps and weakness CELEBREX (CELECOXIB) 11/25/2020 7 - Swelling EFFEXOR (VENLAFAXINE HCL) 09/22/2005 Comments: swelling high blood pressure JANUVIA (SITAGLIPTIN) 09/21/2011 8 - GI Upset 14 - Other: See Comments Comments: Patient states she couldn't eat METOPROLOL 09/21/2009 7 - Swelling MOBIC (MELOXICAM) 08/12/2005 8 - GI Upset PROZAC (FLUOXETINE HCL) 08/12/2005 5 - Intolerance Comments: tremor REMERON (MIRTAZAPINE) 11/25/2020 2 - Rash RISPERIDONE 12/22/2009 1 - Mental Status Change SEROQUEL (QUETIAPINE FUMARATE) 10/05/2006 Comments: hypertension,swelling TRULICITY (DULAGLUTIDE) 05/10/2023 5 - Intolerance Comments: Caused nausea and cramps VANCOMYCIN 08/10/2017 9 - Itching 14 - Other: See Comments 2 - Rash Comments: red all over Other reaction(s): Other: See Comments red all over VIOXX (ROFECOXIB) 08/12/2005 8 - GI Upset WELLBUTRIN (BUPROPION HCL) 08/12/2005 5 - Intolerance Comments: nightmares Date Reviewed: 08/18/2024 Reviewed by: Brittany Valencia LPN - Fully Assessed Reason for Visit: blood sugar readings [Other] Visit Diagnosis:Diabetes mellitus type 2 with ketoacidosis, uncontrolled (HCC) [E11.10] Order(s):insulin glargine (LANTUS SOLOSTAR U-100 INSULIN) 100 unit/mL (3 mL)Inject 34 Units subcutaneously every morning.Disp: 10 eachRfl: 2 Prescriptions as of 09/17/2024 - insulin glargine (LANTUS SOLOSTAR U-100 INSULIN) 100 unit/mL (3 mL) Inject 34 Units subcutaneously every morning. - ibuprofen (MOTRIN) 800 mg tablet Take 1 tablet by mouth every 8 hours as needed for pain. Take with food. - topiramate (TOPAMAX) 25 mg tablet Take 1 tablet by mouth once daily. - CPAP/BIPAP/OTHER Auto biPAP IPAP max 25, EPAP min 12, PS 5 cmH2O [facility] - pravastatin (PRAVACHOL) 40 mg tablet Take 1 tablet by mouth daily at bedtime. - HYDROcodone-Acetaminophen (NORCO) 7.5-325 mg per tablet Take 1 tablet by mouth two times a day as needed for pain for up to 30 days. - tiZANidine (ZANAFLEX) 4 mg tablet Take 1 tablet by mouth every 8 hours as needed (muscle spasms). - spironolactone (ALDACTONE) 25 mg tablet Take 1 tablet by mouth once daily. - ARIPiprazole (ABILIFY) 10 mg tablet Take 1 tablet by mouth once daily. - traZODone (DESYREL) 100 mg tablet Take 1 tablet by mouth daily at bedtime. - DULoxetine (CYMBALTA) 60 mg capsule Take 1 capsule by mouth once daily. - rOPINIRole (REQUIP) 0.25 mg tablet Take 1 tablet by mouth daily at bedtime. - gabapentin (NEURONTIN) 600 mg tablet Take 1 tablet by mouth two times a day for 180 days. - Blood-Glucose Meter,Continuous (DEXCOM G7 ADVANCED REGISTERED NURSE) misc Use to check blood sugar at least four (4) times daily. - Blood-Glucose Sensor (DEXCOM G7 SENSOR) jessica Apply new sensor every ten (10) days. - hydrOXYzine pamoate (VISTARIL) 25 mg capsule Take 1 capsule by mouth three times a day as needed. - potassium chloride SR (MICRO-K) 8 mEq cpER Take 1 capsule by mouth daily with breakfast. - furosemide (LASIX) 80 mg tablet Take 1 tablet by mouth once daily. - famotidine (PEPCID) 40 mg tablet Take 1 tablet by mouth once daily. - Cholecalciferol, Vitamin D3, 125 mcg (5,000 unit) cap Take 1 capsule by mouth once daily. - dlckzicl-hezb-jsj0-C-gio- bosw (OSTEO BI-FLEX TRIPLE STRENGTH) 750 mg-644 mg- 30 mg-1 mg tab Take 1 tablet by mouth two times a day. - acetaminophen (ARTHRITIS PAIN RELIEF) 650 mg CR tablet Take 2 tablets by mouth every 8 hours as needed for pain. Not in same 8h period as [place] (hydrocodone Tylenol) - blood sugar diagnostic (BLOOD GLUCOSE TEST) test strip Test blood sugars up to 4 times daily as directed. Dx: Type 2 DM - Controlled E11.9 Insulin (more content not included)... Normal [facility] Raymond 09-01-2024 [facility] Telephone (KORINA) -- WILTON KHAN V ([id number]) 1960 F Date Time Provider Department 09/01/24 PIEDAD, NEHEMIAH J FAMPWS During your visit today, we recorded the following information about you: Yokasta Reese RN 09/01/2024 8:21 AM Signed Pt called in [facility] BS readings from beginning of August through now. BS (fasting am) 08/19 150 7/2 155 7/3 150 7/4 175 7/5 170 7/6 175 7/7 (Forgot to take) 08/26 165 7/ 165 /10 155 / 150 /12 165 08/31 170 14 151 LOLY Cruz William J, MD 09/01/2024 8:43 AM Signed Sugar are still slightly up. Increase lantus to 32 units a day and call list or mychart list in a few weeks. Yokasta Reese RN 09/01/2024 9:47 AM Signed Pt called and is notified of providers results and instructions. Pt voices understanding. Yokasta Reese RN Allergies As of Date: 09/01/2024 Noted Allergy Reaction LYRICA (PREGABALIN) 08/05/2012 10 - Anaphylaxis Comments: Not sure if accurate. Can take gabapentin. Patient is unsure of reaction. ACCUPRIL (QUINAPRIL HCL) 08/12/2005 5 - Intolerance Comments: dizziness ACTOS (PIOGLITAZONE) 05/14/2020 7 - Swelling AMLODIPINE 04/24/2008 7 - Swelling Comments: Leg edema ATENOLOL 09/29/2010 7 - Swelling ATORVASTATIN 11/01/2017 5 - Intolerance Comments: Muscle cramps and weakness CELEBREX (CELECOXIB) 11/25/2020 7 - Swelling EFFEXOR (VENLAFAXINE HCL) 09/22/2005 Comments: swelling high blood pressure JANUVIA (SITAGLIPTIN) 09/21/2011 8 - GI Upset 14 - Other: See Comments Comments: Patient states she couldn't eat METOPROLOL 09/21/2009 7 - Swelling MOBIC (MELOXICAM) 08/12/2005 8 - GI Upset PROZAC (FLUOXETINE HCL) 08/12/2005 5 - Intolerance Comments: tremor REMERON (MIRTAZAPINE) 11/25/2020 2 - Rash RISPERIDONE 12/22/2009 1 - Mental Status Change SEROQUEL (QUETIAPINE FUMARATE) 10/05/2006 Comments: hypertension,swelling TRULICITY (DULAGLUTIDE) 05/10/2023 5 - Intolerance Comments: Caused nausea and cramps VANCOMYCIN 08/10/2017 9 - Itching 14 - Other: See Comments 2 - Rash Comments: red all over Other reaction(s): Other: See Comments red all over VIOXX (ROFECOXIB) 08/12/2005 8 - GI Upset WELLBUTRIN (BUPROPION HCL) 08/12/2005 5 - Intolerance Comments: nightmares Date Reviewed: 08/18/2024 Reviewed by: Brittany Valencia LPN - Fully Assessed Reason for Visit: Patient Update [1234] BS Readings [Other] Visit Diagnosis:Diabetes mellitus type 2 with ketoacidosis, uncontrolled ([facility]) [E11.10] Order(s):insulin glargine (LANTUS SOLOSTAR U-100 INSULIN) 100 unit/mL (3 mL)Inject 32 Units subcutaneously every morning.Disp: 10 eachRfl: 2 Prescriptions as of 09/01/2024 - insulin glargine (LANTUS SOLOSTAR U-100 INSULIN) 100 unit/mL (3 mL) Inject 32 Units subcutaneously every morning. - topiramate (TOPAMAX) 25 mg tablet Take 1 tablet by mouth once daily. - CPAP/BIPAP/OTHER Auto biPAP IPAP max 25, EPAP min 12, PS 5 cmH2O [facility] - pravastatin (PRAVACHOL) 40 mg tablet Take 1 tablet by mouth daily at bedtime. - HYDROcodone-Acetaminophen (NORCO) 7.5-325 mg per tablet Take 1 tablet by mouth two times a day as needed for pain for up to 30 days. - tiZANidine (ZANAFLEX) 4 mg tablet Take 1 tablet by mouth every 8 hours as needed (muscle spasms). - spironolactone (ALDACTONE) 25 mg tablet Take 1 tablet by mouth once daily. - ARIPiprazole (ABILIFY) 10 mg tablet Take 1 tablet by mouth once daily. - traZODone (DESYREL) 100 mg tablet Take 1 tablet by mouth daily at bedtime. - DULoxetine (CYMBALTA) 60 mg capsule Take 1 capsule by mouth once daily. - rOPINIRole (REQUIP) 0.25 mg tablet Take 1 tablet by mouth daily at bedtime. - gabapentin (NEURONTIN) 600 mg tablet Take 1 tablet by mouth two times a day for 180 days. - Blood-Glucose Meter,Continuous (DEXCOM G7 ADVANCED REGISTERED NURSE) misc Use to check blood sugar at least four (4) times daily. - Blood-Glucose Sensor (DEXCOM G7 SENSOR) jessica Apply new sensor every ten (10) days. - hydrOXYzine pamoate (VISTARIL) 25 mg capsule Take 1 capsule by mouth three times a day as needed. - potassium chloride SR (MICRO-K) 8 mEq cpER Take 1 capsule by mouth daily with breakfast. - furosemide (LASIX) 80 mg tablet Take 1 tablet by mouth once daily. - famotidine (PEPCID) 40 mg tablet Take 1 tablet by mouth once daily. - Cholecalciferol, Vitamin D3, 125 mcg (5,000 unit) cap Take 1 capsule by mouth once daily. - zclcgbjf-jols-lwn4-C-gio- bosw (OSTEO BI-FLEX TRIPLE STRENGTH) 750 mg-644 mg- 30 mg-1 mg tab Take 1 tablet by mouth two times a day. - ibuprofen (MOTRIN) 800 mg tablet Take 1 tablet by mouth every 8 hours as needed for pain. Take with food. - acetaminophen (ARTHRITIS PAIN RELIEF) 650 mg CR tablet Take 2 tablets by mouth every 8 hours as needed for pain. Not in same 8h period as [place] (hydrocodone Tylenol) - blood sugar diagnostic (BLOOD GLUCOSE (more content not included)... Normal [facility] ALBUMIN/CREATININE RATIO, UR INEon 08-28-2024 Albumin DL <= 20 mg/L (U) [Mass/Vol] mg/dL Normal [facility] Comment on above: Order Comment: Speci men Type: URINE SPECIMENOrdering Facility: [facility] Address: [address] [place] [address] Performed By: #### U ACR ####[facility] LABCLIA [id number] [place] [address] [place] Albumin/Creatinine (U) [Mass ratio] Normal [facility] Comment on above: Order Comment: Speci men Type: URINE SPECIMENOrdering Facility: [facility] Address: [address] [place] [address] Result Comment: Not calculated Adult Male and Female Nephrotic Criteria: <30 mg/g is considered normal to mildly increased 30-300 mg/g is considered moderately increased >300 mg/g is considered severely increased KDIGO. (2013). KDIGO 2012 Clinical Practice Guideline for the Evaluation and Management of Chronic Kidney Disease. Official Journal of the International Society of Nephrology, 3(1), 1-150. Performed By: #### U ACR ####[facility] LABCLIA [id number] [address] STATES OF [facility] Creatinine (U) [Mass/Vol] 19.8 mg/dL Low 20.0-300.0 [facility] Comment on above: Order Comment: Speci men Type: URINE SPECIMENOrdering Facility: [facility] Address: [address] [place] [address] Performed By: #### U ACR ####[facility] LABCLIA [id number] [address] OF [facility] CNPToña 08-28-2024 [facility] Telephone (SLEWST) -- WILTON KHAN V ([id number]) 1960 F Date Time Provider Department 08/28/24 [place] During your visit today, we recorded the following information about you: Christal Rasmussen RN 08/28/2024 4:28 PM Addendum Shilpi with [employer] calling and states she will be contacting patient today to inform her that due to noncompliance with last PAP machine (33%), she would have to purchase the supplies and use Pap for 30 days first. Call Shilpi for any questions. [phone]. Christal Rasmussen RN Allergies As of Date: 08/28/2024 Noted Allergy Reaction LYRICA (PREGABALIN) 08/05/2012 10 - Anaphylaxis Comments: Not sure if accurate. Can take gabapentin. Patient is unsure of reaction. ACCUPRIL (QUINAPRIL HCL) 08/12/2005 5 - Intolerance Comments: dizziness ACTOS (PIOGLITAZONE) 05/14/2020 7 - Swelling AMLODIPINE 04/24/2008 7 - Swelling Comments: Leg edema ATENOLOL 09/29/2010 7 - Swelling ATORVASTATIN 11/01/2017 5 - Intolerance Comments: Muscle cramps and weakness CELEBREX (CELECOXIB) 11/25/2020 7 - Swelling EFFEXOR (VENLAFAXINE HCL) 09/22/2005 Comments: swelling high blood pressure JANUVIA (SITAGLIPTIN) 09/21/2011 8 - GI Upset 14 - Other: See Comments Comments: Patient states she couldn't eat METOPROLOL 09/21/2009 7 - Swelling MOBIC (MELOXICAM) 08/12/2005 8 - GI Upset PROZAC (FLUOXETINE HCL) 08/12/2005 5 - Intolerance Comments: tremor REMERON (MIRTAZAPINE) 11/25/2020 2 - Rash RISPERIDONE 12/22/2009 1 - Mental Status Change SEROQUEL (QUETIAPINE FUMARATE) 10/05/2006 Comments: hypertension,swelling TRULICITY (DULAGLUTIDE) 05/10/2023 5 - Intolerance Comments: Caused nausea and cramps VANCOMYCIN 08/10/2017 9 - Itching 14 - Other: See Comments 2 - Rash Comments: red all over Other reaction(s): Other: See Comments red all over VIOXX (ROFECOXIB) 08/12/2005 8 - GI Upset WELLBUTRIN (BUPROPION HCL) 08/12/2005 5 - Intolerance Comments: nightmares Date Reviewed: 08/18/2024 Reviewed by: Brittany Valencia LPN - Fully Assessed Reason for Visit: Patient Update [1234] Prescriptions as of 08/29/2024 - topiramate (TOPAMAX) 25 mg tablet Take 1 tablet by mouth once daily. - CPAP/BIPAP/OTHER Auto biPAP IPAP max 25, EPAP min 12, PS 5 cmH2O [facility] - pravastatin (PRAVACHOL) 40 mg tablet Take 1 tablet by mouth daily at bedtime. - HYDROcodone-Acetaminophen (NORCO) 7.5-325 mg per tablet Take 1 tablet by mouth two times a day as needed for pain for up to 30 days. - tiZANidine (ZANAFLEX) 4 mg tablet Take 1 tablet by mouth every 8 hours as needed (muscle spasms). - spironolactone (ALDACTONE) 25 mg tablet Take 1 tablet by mouth once daily. - ARIPiprazole (ABILIFY) 10 mg tablet Take 1 tablet by mouth once daily. - traZODone (DESYREL) 100 mg tablet Take 1 tablet by mouth daily at bedtime. - DULoxetine (CYMBALTA) 60 mg capsule Take 1 capsule by mouth once daily. - rOPINIRole (REQUIP) 0.25 mg tablet Take 1 tablet by mouth daily at bedtime. - gabapentin (NEURONTIN) 600 mg tablet Take 1 tablet by mouth two times a day for 180 days. - Blood-Glucose Meter,Continuous (DEXExam18 G7 ADVANCED REGISTERED NURSE) misc Use to check blood sugar at least four (4) times daily. - Blood-Glucose Sensor (DEXCOM G7 SENSOR) jessica Apply new sensor every ten (10) days. - hydrOXYzine pamoate (VISTARIL) 25 mg capsule Take 1 capsule by mouth three times a day as needed. - potassium chloride SR (MICRO-K) 8 mEq cpER Take 1 capsule by mouth daily with breakfast. - furosemide (LASIX) 80 mg tablet Take 1 tablet by mouth once daily. - famotidine (PEPCID) 40 mg tablet Take 1 tablet by mouth once daily. - Cholecalciferol, Vitamin D3, 125 mcg (5,000 unit) cap Take 1 capsule by mouth once daily. - amohhptz-jcov-vad4-C-gio- bosw (OSTEO BI-FLEX TRIPLE STRENGTH) 750 mg-644 mg- 30 mg-1 mg tab Take 1 tablet by mouth two times a day. - insulin glargine (LANTUS SOLOSTAR U-100 INSULIN) 100 unit/mL (3 mL) Inject 30 Units subcutaneously every morning. - ibuprofen (MOTRIN) 800 mg tablet Take 1 tablet by mouth every 8 hours as needed for pain. Take with food. - acetaminophen (ARTHRITIS PAIN RELIEF) 650 mg CR tablet Take 2 tablets by mouth every 8 hours as needed for pain. Not in same 8h period as [place] (hydrocodone Tylenol) - blood sugar diagnostic (BLOOD GLUCOSE TEST) test strip Test blood sugars up to 4 times daily as directed. Dx: Type 2 DM - Controlled E11.9 Insulin: Yes. - Insulin Maljamar, Disposable, (BD ULTRA-FINE MADI PEN NEEDLE) 32 gauge x 532 Use one needle for each dose. 2/day. - Lancets Test blood sugar(s) up to 4 times daily. Dx: Type 2 DM - Controlled E11.9 Insulin: Yes - Disposable Gloves (DISPOSABLE LATEX-FREE GLOVES) mis 1 Box once every month. - Adhesive Bandage ([place] [employer]) 6 X 6 bndg Apply to affected area once daily. - Miscellaneous Medical S (more content not included)... Normal [facility] CBC W Auto Differential pane l (Bld)on 08-18-2024 Basophils (Bld) [#/Vol] 0.03 10*3/uL [facility] Basophils/100 WBC (Bld) 0.6 % [facility] Differential cell count method Nom (Bld) Auto [facility] Eosinophils (Bld) [#/Vol] 0.12 10*3/uL [facility] Eosinophils/100 WBC (Bld) 2.2 % [facility] Erythrocyte distribution width (RBC) [Ratio] 13.2 % 11.5 - 15.0 % [facility] Hematocrit (Bld) [Volume fraction] 39.3 % 36.0 - 46.0 % [facility] Hemoglobin (Bld) [Mass/Vol] 12.7 g/dL 11.5 - 15.5 g/dL [facility] Immature granulocytes (Bld) [#/Vol] [facility] Immature granulocytes/100 WBC (Bld) 0.2 % [facility] Lymphocytes (Bld) [#/Vol] 1.43 10*3/uL [facility] Lymphocytes/100 WBC (Bld) 26.5 % [facility] MCH (RBC) [Entitic mass] 30.1 pg 26.0 - 34.0 pg [facility] MCHC (RBC) [Mass/Vol] 32.3 g/dL 30.5 - 36.0 g/dL [facility] MCV (RBC) [Entitic vol] 93.1 fL 80.0 - 100.0 fL [facility] Monocytes (Bld) [#/Vol] 0.36 10*3/uL [facility] Monocytes/100 WBC (Bld) 6.7 % [facility] Neutrophils (Bld) [#/Vol] 3.44 10*3/uL [facility] Neutrophils/100 WBC (Bld) 63.8 % [facility] Nucleated RBC (Bld) [#/Vol] NINF [facility] Nucleated RBC/100 WBC (Bld) [Ratio] 0 % /100 WBC [facility] Platelet mean volume (Bld) [Entitic vol] 11.6 fL 9.0 - 12.7 fL [facility] Platelets (Bld) [#/Vol] 202 10*3/uL [facility] RBC (Bld) [#/Vol] 4.22 10*6/uL 3.90 - 5.2 0 m/uL [facility] WBC (Bld) [#/Vol] 5.39 10*3/uL [facility] Basophils (Bld) [#/Vol] 0.03 10*3/uL Normal <0.11 [facility] Comment on above: Order Comment: Speci men Type: BLOOD SPECIMENOrdering Facility: [facility] Address: [address] [place] [address] Performed By: #### 5 7021-8 ####[facility] LABIA [id number] [place] [address] [place] Basophils/100 WBC (Bld) 0.6 % Normal [facility] Comment on above: Order Comment: Speci men Type: BLOOD SPECIMENOrdering Facility: [facility] Address: [address] [place] [address] Performed By: #### 5 7021-8 ####[facility] LABCLIA [id number] [place] [address] [place] Differential cell count method Nom (Bld) Auto Normal [facility] Comment on above: Order Comment: Speci men Type: BLOOD SPECIMENOrdering Facility: [facility] Address: [address] [place] [address] Performed By: #### 5 7021-8 ####[facility] LABIA [id number] [place] [address] [place] Eosinophils (Bld) [#/Vol] 0.12 10*3/uL Normal <0.46 [facility] Comment on above: Order Comment: Speci men Type: BLOOD SPECIMENOrdering Facility: [facility] Address: [address] [place] [address] Performed By: #### 5 7021-8 ####[facility] LABCLIA [id number] [facility] [place] [address] [place] Eosinophils/100 WBC (Bld) 2.2 % Normal [facility] Comment on above: Order Comment: Speci men Type: BLOOD SPECIMENOrdering Facility: [facility] Address: [address] [place] [address] Performed By: #### 5 7021-8 ####[facility] LABCLIA [id number] [place] [address] [place] Erythrocyte distribution width (RBC) [Ratio] 13.2 % Normal 11.5-15.0 [facility] Comment on above: Order Comment: Speci men Type: BLOOD SPECIMENOrdering Facility: [facility] Address: [address] [place] [address] Performed By: #### 5 7021-8 ####[facility] LABCLIA [id number] [place] [address] [place] Hematocrit (Bld) [Volume fraction] 39.3 % Normal 36.0-46.0 [facility] Comment on above: Order Comment: Speci men Type: BLOOD SPECIMENOrdering Facility: [facility] Address: [address] [place] [address] Performed By: #### 5 7021-8 ####[facility] LABCLIA [id number] [facility] [place] [id number] [place] Hemoglobin (Bld) [Mass/Vol] 12.7 g/dL Normal 11.5-15.5 [facility] Comment on above: Order Comment: Speci men Type: BLOOD SPECIMENOrdering Facility: [facility] Address: [address] [place] [address] Performed By: #### 5 7021-8 ####[facility] LABCLIA [id number] [place] [address] [place] Immature granulocytes (Bld) [#/Vol] 10*3/uL Normal <0.10 [facility] Comment on above: Order Comment: Speci men Type: BLOOD SPECIMENOrdering Facility: [facility] Address: [address] [place] [address] Performed By: #### 5 7021-8 ####[facility] LABCLIA [id number] [place] [address] [place] Immature granulocytes/100 WBC (Bld) 0.2 % Normal [facility] Comment on above: Order Comment: Speci men Type: BLOOD SPECIMENOrdering Facility: [facility] Address: [address] [place] [address] Performed By: #### 5 7021-8 ####[facility] LABCLIA [id number] [place] [address] [place] Lymphocytes (Bld) [#/Vol] 1.43 10*3/uL Normal 1.00-4.00 [facility] Comment on above: Order Comment: Speci men Type: BLOOD SPECIMENOrdering Facility: [facility] Address: [address] [place] [address] Performed By: #### 5 7021-8 ####[facility] LABCLIA [id number] [place] [id number] [place] Lymphocytes/100 WBC (Bld) 26.5 % Normal [facility] Comment on above: Order Comment: Speci men Type: BLOOD SPECIMENOrdering Facility: [facility] Address: [address] [place] [address] Performed By: #### 5 7021-8 ####[facility] LABCLIA [id number] [address] [place] MCH (RBC) [Entitic mass] 30.1 pg Normal 26.0-34.0 [facility] Comment on above: Order Comment: Speci men Type: BLOOD SPECIMENOrdering Facility: [facility] Address: [address] [place] [address] Performed By: #### 5 7021-8 ####[facility] LABIA [id number] [place] [address] [place] MCHC (RBC) [Mass/Vol] 32.3 g/dL Normal 30.5-36.0 [facility] Comment on above: Order Comment: Speci men Type: BLOOD SPECIMENOrdering Facility: [facility] Address: [address] [place] [address] Performed By: #### 5 7021-8 ####[facility] LABCLIA [id number] [place] [address] [place] MCV (RBC) [Entitic vol] 93.1 fL Normal 80.0-100.0 [facility] Comment on above: Order Comment: Speci men Type: BLOOD SPECIMENOrdering Facility: [facility] Address: [address] [place] [address] Performed By: #### 5 7021-8 ####[facility] LABIA [id number] [place] [address] [place] Monocytes (Bld) [#/Vol] 0.36 10*3/uL Normal <0.87 [facility] Comment on above: Order Comment: Speci men Type: BLOOD SPECIMENOrdering Facility: [facility] Address: [address] [place] [address] Performed By: #### 5 7021-8 ####[facility] LABCLIA [id number] [place] [address] [place] Monocytes/100 WBC (Bld) 6.7 % Normal [facility] Comment on above: Order Comment: Speci men Type: BLOOD SPECIMENOrdering Facility: [facility] Address: [address] [place] [address] Performed By: #### 5 7021-8 ####[facility] LABCLIA [id number] [place] [address] [place] Neutrophils (Bld) [#/Vol] 3.44 10*3/uL Normal 1.45-7.50 [facility] [facility] Comment on above: Order Comment: Speci men Type: BLOOD SPECIMENOrdering Facility: [facility] Address: [address] [place] [address] Performed By: #### 5 7021-8 ####[facility] LABCLIA [id number] [place] [address] [place] Neutrophils/100 WBC (Bld) 63.8 % Normal [facility] Comment on above: Order Comment: Speci men Type: BLOOD SPECIMENOrdering Facility: [facility] Address: [address] [place] [address] Performed By: #### 5 7021-8 ####[facility] LABCLIA [id number] [place] [address] [place] Nucleated RBC (Bld) [#/Vol] 10*3/uL Normal <0.01 [facility] Comment on above: Order Comment: Speci men Type: BLOOD SPECIMENOrdering Facility: [facility] Address: [address] [place] [address] Performed By: #### 5 7021-8 ####[facility] LABCLIA [id number] [place] [id number] [place] Nucleated RBC/100 WBC (Bld) [Ratio] 0.0 /100 WBC Normal [facility] Comment on above: Order Comment: Speci men Type: BLOOD SPECIMENOrdering Facility: [facility] Address: [address] [place] [address] Performed By: #### 5 7021-8 ####[facility] LABCLIA [id number] [address] [place] [address] [place] Platelet mean volume (Bld) [Entitic vol] 11.6 fL Normal 9.0-12.7 [facility] Comment on above: Order Comment: Speci men Type: BLOOD SPECIMENOrdering Facility: [facility] Address: [address] [place] [address] Performed By: #### 5 7021-8 ####[facility] LABCLIA [id number] [place] [address] [place] Platelets (Bld) [#/Vol] 202 10*3/uL Normal 150-400 [facility] Comment on above: Order Comment: Speci men Type: BLOOD SPECIMENOrdering Facility: [facility] Address: [address] [place] [address] Performed By: #### 5 7021-8 ####[facility] LABCLIA [id number] [place] [address] [place] RBC (Bld) [#/Vol] 4.22 10*6/uL Normal 3.90-5.20 [facility] Comment on above: Order Comment: Speci men Type: BLOOD SPECIMENOrdering Facility: [facility] Address: [address] [place] [address] Performed By: #### 5 7021-8 ####[facility] LABCLIA [id number] [place] [id number] [place] WBC (Bld) [#/Vol] 5.39 10*3/uL Normal 3.70-11.00 [facility] Comment on above: Order Comment: Speci men Type: BLOOD SPECIMENOrdering Facility: [facility] Address: [address] [place] [address] Performed By: #### 5 7021-8 ####[facility] LABCLIA [id number] [place] [id number] [place] CNOVon 08-18-2024 CNOV Office Visit (FAMPWS ) -- WILTON KHAN V ([id number]) 1960 F Date Time Provider Department 08/18/24 11:00 AM [facility] During your visit today, we recorded the following information about you: Pulse Blood pressure 57/minute 122/72 Nehemiah Herbert MD 08/18/2024 11:28 AM Signed - Increase your [place] (hydrocodone/acetaminophen ) to 7.5/325 mg: take one tablet twice daily as needed for pain, using only as directed. - Continue your gabapentin for restless legs as prescribed. - Resume BiPAP therapy tonight at home for sleep apnea; continue follow-up with Dr. Guerrero. - Review and sign the controlled substance agreement before your next refill; return it to the clinic so we can continue your pain prescriptions. - Obtain non-fasting labs soon for A1c and cholesterol; we will also repeat your liver enzyme tests periodically. - Complete the [facility] at-home colon cancer screening kit and mail it back per instructions (valid for three years). - Schedule your mammogram now that the order is in place. - Follow up in two months (in-person or virtual) for pain medication review and prescription renewal. Nehemiah Herbert MD 08/18/2024 1:29 PM Signed Wiltongabriel Khan is a 64-year-old female with a history of HTN, DM, JEREMÍAS, and chronic pain, presenting for a follow-up visit. HPI Hypertension: - BP today: 122/72 mmHg. - Denies chest discomfort. Diabetes Mellitus: - Monitors blood glucose levels at home; reports readings are real good. - Seen by celery stripper at [facility] in [place] approximately one month ago. JEREMÍAS: - Managed by Dr. Guerrero. - Uses BiPAP but has not been consistent due to nerves. - Denies using supplemental oxygen at night. Chronic Pain: - Chronic back and neck pain; currently taking [place] and gabapentin. - Recent visit to Dr. Driscoll, who recommended increasing [place] to 7.5/325 mg BID PRN. - Recent toxicology screen showed a false positive for amphetamines; confirmed negative by blood test in May. - Reports pain management is doing great with current medications. - Denies taking additional medications or exceeding prescribed doses. Arthritis: - Reports pain in back and neck. - Managed with [place]. - Oarrs done - Has done tox screen. - Helps her to meet her ADL's - Aware of risks adn benefits. - Controlled substance agreement done today. Edema: - Chronic lower extremity edema; no recent changes. - Denies weight gain, dyspnea, or orthopnea. - Denies erythema or warmth in lower extremities. RLS: - Managed with [employer]; reports symptoms are doable right now. Fatty Liver: - History of fatty liver disease; most recent liver enzymes were normal. Parathyroidectomy: - History of parathyroid surgery; reports no current issues. GERD: - Denies heartburn. Skin Issues: - Reports skin on the back of legs is very tender and sore but not open. Emotional Well-being: - Reports feeling pretty decent emotionally, even after the recent loss of her brother. - Denies seeing a psychiatrist or psychologist. MEDICATIONS: Current Outpatient Medications Medication Sig spironolactone (ALDACTONE) 25 mg tablet Take 1 tablet by mouth once daily. ARIPiprazole (ABILIFY) 10 mg tablet Take 1 tablet by mouth once daily. traZODone (DESYREL) 100 mg tablet Take 1 tablet by mouth daily at bedtime. DULoxetine (CYMBALTA) 60 mg capsule Take 1 capsule by mouth once daily. rOPINIRole (REQUIP) 0.25 mg tablet Take 1 tablet by mouth daily at bedtime. topiramate (TOPAMAX) 25 mg tablet Take 1 tablet by mouth once daily. gabapentin (NEURONTIN) 600 mg tablet Take 1 tablet by mouth two times a day for 180 days. potassium chloride SR (MICRO-K) 8 mEq cpER Take 1 capsule by mouth daily with breakfast. pravastatin (PRAVACHOL) 20 mg tablet Take 1 tablet by mouth daily at bedtime. furosemide (LASIX) 80 mg tablet Take 1 tablet by mouth once daily. famotidine (PEPCID) 40 mg tablet Take 1 tablet by mouth once daily. Cholecalciferol, Vitamin D3, 125 mcg (5,000 unit) cap Take 1 capsule by mouth once daily. insulin glargine (LANTUS SOLOSTAR U-100 INSULIN) 100 unit/mL (3 mL) Inject 30 Units subcutaneously every morning. HYDROcodone-Acetaminophen (NORCO) 7.5-325 mg per tablet Take 1 tablet by mouth two times a day as needed for pain for up to 30 days. tiZANidine (ZANAFLEX) 4 mg tablet Take 1 tablet by mouth every 8 hours as needed (muscle spasms). Blood-Glucose Meter,Continuous (DEXCOM G7 ADVANCED REGISTERED NURSE) [facility] [place] to check blood sugar at least four (4) times daily. Blood-Glucose Sensor (DEXCOM G7 SENSOR) jessica Apply new sensor every ten (10) days. hydrOXYzine pamoate (VISTARIL) 25 mg capsule Take 1 capsule by mouth three times a day as needed. ukpmgvhy-melt-tjz5-C-gio- bosw (OSTEO BI-FLEX TRIPLE STRENGTH) 750 mg-644 mg- 30 mg-1 mg tab Take 1 tablet by mouth two times a day. ib (more content not included)... Normal [facility] CNOV Office Visit (SLEWST ) -- WILTON KHAN V ([id number]) 1960 F Date Time Provider Department 08/18/24 9:00 AM [place] During your visit today, we recorded the following information about you: Pulse Respiration Blood pressure 62/minute 16/minute 109/69 [place] APRN.OIL FIELD ROUSTABOUT 08/18/2024 10:05 AM Signed [facility] New Patient Evaluation PATIENT NAME: Wilton Khan DATE OF SERVICE: August 17, 2024 Recording using ambient Novi[employer] software for draft documentation of the visit was discussed with the patient/authorized unit support representative; all questions welcomed and answered. Patient/authorized unit support representative agreed to proceed CONSULTING PROVIDER: Joi Markham [address] [facility] [address] REASON FOR CONSULT: Joi Markham sends the patient for an opinion about JEREMÍAS, not always adherent with CPAP. My findings and recommendations will be transmitted electronically via shared medical record to the consulting provider. HPI: 1. Concerns: - BiPAP Usage - Patient is a 64-year-old female presenting with concerns regarding her BiPAP usage. - Reports not using her BiPAP for a while due to anxiety and feeling smothered when using it. - Previously used the BiPAP faithfully but stopped after the loss of her brother, which has affected her mental health. - Currently sleeps in a recliner due to difficulty getting in and out of bed and anxiety when lying in bed. - Has had oxygen at home for quite a while but does not use it as she does not need it. Oxygen was prescribed after an overnight stay at [facility] where her oxygen levels dropped without her BiPAP. - Reports that her oxygen levels at home have been good, but she cannot get rid of the oxygen without a doctor's order. - Had an overnight oxygen test in June 2022, which showed 9 minutes below 88%, qualifying her for oxygen. Testing done off PAP. - Had a PAP titration sleep study [place] [address] Myles, which led to the recommendation of BiPAP after not tolerating CPAP. - Received a new BiPAP machine following the [employer] recall. Not sure if it is CPAP or biPAP - Fatigue and Sleepiness - Reports feeling sleepy all the time and lacking energy. - Feels 100% better when using the BiPAP, with improved energy and reduced sleepiness. - Experiences frequent nighttime awakenings and does not feel refreshed in the morning. - Wakes up multiple times at night to use the bathroom - Restless Legs - Has a history of restless legs and is currently taking ropinirole at bedtime, which helps. - Reports constant leg movements and pain when not using the BiPAP. - Anxiety - Takes Cymbalta and Abilify - Uses trazodone 100 mg at night to help fall asleep quickly. - Family History of Sleep Apnea - Reports that three of her sisters have sleep apnea. 2. Sleep history: - Overall goals of treatment: Improve sleep quality and reduce daytime fatigue. - Sleep habits: - Typical bedtime: 19:00-19:30 - Time to fall asleep: Falls asleep quickly with trazodone. Plays gospel music on TV at night which she finds very soothing. - Nighttime awakening number: Wakes up 2-3 hours after falling asleep to use the bathroom, then falls back asleep quickly. - Use of PAP or prior treatments: - PAP experience: Previously used BiPAP faithfully but stopped due to anxiety and feeling smothered. - Current PAP usage: Not currently using BiPAP. - Types of masks tried: Full face mask Patient Questionnaires Sleep Scores 08/13/2024 Sleep Questions Reason for visit: Sleep apnea Restless Legs Syndrome On average, hours of sleep in 24 hours: 14 Accidents or near accidents due to drowsy drivin Multiple values from one day are sorted in reverse-chronological order 08/13/2024 [place] Sleepiness Scale Score 15 (Excessive daytime sleepiness present) 08/13/2024 PROMIS CAT Sleep Disturbance PROMIS Sleep Disturbance T-Score 54 (within normal limits) PROMIS Sleep Disturbance Percentile 34 08/13/2024 Restless Leg Syndrome Score 22 (Severe symptoms) 08/13/2024 PHQ-9 Score 9 06/18/2024 PROMIS Global Health - (T-Scores - the mean of general population = 50. Five points is a clinically meaningful difference.) Physical T-Score 37.4 Mental T-Score 36.3 PAST TREATMENTS: Replacement machine during [employer] recall Benefits: not sleepy DME for supplies: [facility] PRIOR SLEEP STUDIES: ?original PSG at [facility] 09/11/15 biPAP titration study done by Dr Myles for CPAP intolerance, recommended biPAP 16/12 cmH20 (no supine REM sleep) PAST MEDICAL HISTORY Diagnosis Date Abnormal glandular Papanicolaou smear of cervix 05/30/05 ABNL GLANDULAR PAP SMEAR CERVIX Acute gastritis without mention of hemorrhage Anxiety state, unspecified Arrhythmia Chronic cholecystitis Chron (more content not included)... Normal [facility] Raymond 08-18-2024 KENYA Telephone (SLEWST) -- WILTON KHAN V ([id number]) 1960 F Date Time Provider Department 08/18/24 [place] During your visit today, we recorded the following information about you: Emily Garcia RN 08/18/2024 10:23 AM Signed Ana with [employer] calls to report they received the request for download but are unable to complete as patient has an older Respironics Bi-pap that has been recalled and would need a SD card in order to do the download. LOLY Easton Gillian, OCCA 08/18/2024 1:31 PM Signed Below noted. Provider needing to know current settings on BiPAP. TC back to [facility] to verify. with no ramp VIVIANA Pelletier Allergies As of Date: 08/18/2024 Noted Allergy Reaction LYRICA (PREGABALIN) 08/05/2012 10 - Anaphylaxis Comments: Not sure if accurate. Can take gabapentin. Patient is unsure of reaction. ACCUPRIL (QUINAPRIL HCL) 08/12/2005 5 - Intolerance Comments: dizziness ACTOS (PIOGLITAZONE) 05/14/2020 7 - Swelling AMLODIPINE 04/24/2008 7 - Swelling Comments: Leg edema ATENOLOL 09/29/2010 7 - Swelling ATORVASTATIN 11/01/2017 5 - Intolerance Comments: Muscle cramps and weakness CELEBREX (CELECOXIB) 11/25/2020 7 - Swelling EFFEXOR (VENLAFAXINE HCL) 09/22/2005 Comments: swelling high blood pressure JANUVIA (SITAGLIPTIN) 09/21/2011 8 - GI Upset 14 - Other: See Comments Comments: Patient states she couldn't eat METOPROLOL 09/21/2009 7 - Swelling MOBIC (MELOXICAM) 08/12/2005 8 - GI Upset PROZAC (FLUOXETINE HCL) 08/12/2005 5 - Intolerance Comments: tremor REMERON (MIRTAZAPINE) 11/25/2020 2 - Rash RISPERIDONE 12/22/2009 1 - Mental Status Change SEROQUEL (QUETIAPINE FUMARATE) 10/05/2006 Comments: hypertension,swelling TRULICITY (DULAGLUTIDE) 05/10/2023 5 - Intolerance Comments: Caused nausea and cramps VANCOMYCIN 08/10/2017 9 - Itching 14 - Other: See Comments 2 - Rash Comments: red all over Other reaction(s): Other: See Comments red all over VIOXX (ROFECOXIB) 08/12/2005 8 - GI Upset WELLBUTRIN (BUPROPION HCL) 08/12/2005 5 - Intolerance Comments: nightmares Date Reviewed: 08/18/2024 Reviewed by: Brittany Valencia LPN - Fully Assessed Reason for Visit: Patient Update [1234] Prescriptions as of 08/22/2024 - pravastatin (PRAVACHOL) 40 mg tablet Take 1 tablet by mouth daily at bedtime. - HYDROcodone-Acetaminophen (NORCO) 7.5-325 mg per tablet Take 1 tablet by mouth two times a day as needed for pain for up to 30 days. - tiZANidine (ZANAFLEX) 4 mg tablet Take 1 tablet by mouth every 8 hours as needed (muscle spasms). - spironolactone (ALDACTONE) 25 mg tablet Take 1 tablet by mouth once daily. - ARIPiprazole (ABILIFY) 10 mg tablet Take 1 tablet by mouth once daily. - traZODone (DESYREL) 100 mg tablet Take 1 tablet by mouth daily at bedtime. - DULoxetine (CYMBALTA) 60 mg capsule Take 1 capsule by mouth once daily. - rOPINIRole (REQUIP) 0.25 mg tablet Take 1 tablet by mouth daily at bedtime. - topiramate (TOPAMAX) 25 mg tablet Take 1 tablet by mouth once daily. - gabapentin (NEURONTIN) 600 mg tablet Take 1 tablet by mouth two times a day for 180 days. - Blood-Glucose Meter,Continuous (DEXCOM G7 ADVANCED REGISTERED NURSE) [facility] Use to check blood sugar at least four (4) times daily. - Blood-Glucose Sensor (DEXCOM G7 SENSOR) jessica Apply new sensor every ten (10) days. - hydrOXYzine pamoate (VISTARIL) 25 mg capsule Take 1 capsule by mouth three times a day as needed. - potassium chloride SR (MICRO-K) 8 mEq cpER Take 1 capsule by mouth daily with breakfast. - furosemide (LASIX) 80 mg tablet Take 1 tablet by mouth once daily. - famotidine (PEPCID) 40 mg tablet Take 1 tablet by mouth once daily. - Cholecalciferol, Vitamin D3, 125 mcg (5,000 unit) cap Take 1 capsule by mouth once daily. - yavawwre-bzuy-jrr7-C-gio- bosw (OSTEO BI-FLEX TRIPLE STRENGTH) 750 mg-644 mg- 30 mg-1 mg tab Take 1 tablet by mouth two times a day. - insulin glargine (LANTUS SOLOSTAR U-100 INSULIN) 100 unit/mL (3 mL) Inject 30 Units subcutaneously every morning. - ibuprofen (MOTRIN) 800 mg tablet Take 1 tablet by mouth every 8 hours as needed for pain. Take with food. - acetaminophen (ARTHRITIS PAIN RELIEF) 650 mg CR tablet Take 2 tablets by mouth every 8 hours as needed for pain. Not in same 8h period as [place] (hydrocodone Tylenol) - blood sugar diagnostic (BLOOD GLUCOSE TEST) test strip Test blood sugars up to 4 times daily as directed. Dx: Type 2 DM - Controlled E11.9 Insulin: Yes. - Insulin Maljamar, Disposable, (BD ULTRA-FINE MADI PEN NEEDLE) 32 gauge x Use one needle for each dose. 2/day. - Lancets Test blood sugar(s) up to 4 times daily. Dx: Type 2 DM - Controlled E11.9 Insulin: Yes - Disposable Gloves (DISPOSABLE LATEX-FREE GLOVES) misc 1 Box once every month. - Adhesive Bandage ([place] DRESSING) 6 (more content not included)... Normal [facility] Comprehensive metabolic 2000 panelon 08-18-2024 Albumin [Mass/Vol] 4.4 g/dL Normal 3.9-4.9 [facility] Comment on above: Order Comment: Speci men Type: BLOOD SPECIMENOrdering Facility: [facility] Address: [address] [place] [address] Performed By: #### 2 4323-8, LIPNF ####[facility] LABCLIA [id number] [place] [address] [place] ALP [Catalytic activity/Vol] 106 U/L Normal 34-123 [facility] Comment on above: Order Comment: Speci men Type: BLOOD SPECIMENOrdering Facility: [facility] Address: [address] [place] [address] Performed By: #### 2 4323-8, LIPNF ####[facility] LABCLIA [id number] [address] [address] [place] ALT [Catalytic activity/Vol] 14 U/L Normal 7-38 [facility] Comment on above: Order Comment: Speci men Type: BLOOD SPECIMENOrdering Facility: [facility] Address: [address] [place] [address] Performed By: #### 2 4323-8, LIPNF ####[facility] LABCLIA [id number] [place] [id number] [place] Anion gap [Moles/Vol] 12 mmol/L Normal 8-15 [facility] Comment on above: Order Comment: Speci men Type: BLOOD SPECIMENOrdering Facility: [facility] Address: [address] [place] [address] Performed By: #### 2 4323-8, LIPNF ####[facility] LABCLIA [id number] [place] [address] [place] AST [Catalytic activity/Vol] 16 U/L Normal 13-35 [facility] Comment on above: Order Comment: Speci men Type: BLOOD SPECIMENOrdering Facility: [facility] Address: [address] [place] [address] Performed By: #### 2 4323-8, LIPNF ####[facility] LABCLIA [id number] [place] [id number] [place] Bilirubin [Mass/Vol] 0.4 mg/dL Normal 0.2-1.3 [facility] Comment on above: Order Comment: Speci men Type: BLOOD SPECIMENOrdering Facility: [facility] Address: [address] [place] [address] Performed By: #### 2 4323-8, LIPNF ####[facility] LABCLIA [id number] [place] [id number] [place] Calcium [Mass/Vol] 9.3 mg/dL Normal 8.5-10.2 [facility] Comment on above: Order Comment: Speci men Type: BLOOD SPECIMENOrdering Facility: [facility] Address: [address] [place] [address] Performed By: #### 2 4323-8, LIPNF ####[facility] LABCLIA [id number] [place] [address] [place] Chloride [Moles/Vol] 104 mmol/L Normal 98-107 [facility] Comment on above: Order Comment: Speci men Type: BLOOD SPECIMENOrdering Facility: [facility] Address: [address] [place] [address] Performed By: #### 2 4323-8, LIPNF ####[facility] LABCLIA [id number] [place] [address] [place] CO2 [Moles/Vol] 27 mmol/L Normal 22-30 [facility] Comment on above: Order Comment: Speci men Type: BLOOD SPECIMENOrdering Facility: [facility] Address: [address] [place] [address] Performed By: #### 2 4323-8, LIPNF ####[facility] LABCLIA [id number] [place] [address] [place] Creatinine [Mass/Vol] 0.51 mg/dL Low 0.58-0.96 [facility] Comment on above: Order Comment: Speci men Type: BLOOD SPECIMENOrdering Facility: [facility] Address: [address] [place] [address] Performed By: #### 2 4323-8, LIPNF ####[facility] LABCLIA [id number] [place] [address] [place] Creatinine and Glomerular filtration rate.predicted panel (S/P/Bld) 104 mL/min/1.73m??? Normal >=60 [facility] Comment on above: Order Comment: Speci men Type: BLOOD SPECIMENOrdering Facility: [facility] Address: [address] [place] [address] Result Comment: Sidney mated Glomerular Filtration Rate (eGFR) is calculated using the 2020 CKD-EPI creatinine equation. This equation utilizes serum creatinine, sex, and age as parameters. The creatinine assay has traceable calibration to isotope dilution-mass spectrometry. Refer to KDIGO guidelines for clinical interpretation. In patients with unstable renal function, e.g. those with acute kidney injury, the eGFR may not accurately reflect actual GFR. Performed By: #### 2 4323-8, LIPNF ####[facility] LABIA [id number] [place] [address] [place] Glucose [Mass/Vol] 153 mg/dL High 74-99 [facility] Comment on above: Order Comment: Dianne hernández Type: BLOOD SPECIMENOrdering Facility: [facility] Address: [address] [place] [address] Result Comment: The [place] Diabetes Association (ADA) provides guidance for cutoff values for fasting glucose and random glucose. The ADA defines fasting as no caloric intake for at least 8 hours. Fasting plasma glucose results between 100 to 125 [...] Standards of Medical Care in Diabetes 2016, [place] [employer]. Diabetes Care. 2016.39(Suppl 1). Performed By: #### 2 4323-8, LIPNF ####[facility] LABIA [id number] [place] [id number] [place] Potassium [Moles/Vol] 4.4 mmol/L Normal 3.7-5.1 [facility] Comment on above: Order Comment: Dianne [facility] Type: BLOOD SPECIMENOrdering Facility: [facility] Address: [address] [place] [address] Performed By: #### 2 4323-8, LIPNF ####[facility] LABCLIA [id number] [place] [id number] [place] Protein [Mass/Vol] 6.4 g/dL Normal 6.3-8.0 [facility] Comment on above: Order Comment: Speci men Type: BLOOD SPECIMENOrdering Facility: [facility] Address: [address] [place] [address] Performed By: #### 2 4323-8, LIPNF ####[facility] LABCLIA [id number] [place] [address] [place] Sodium [Moles/Vol] 143 mmol/L Normal 136-144 [facility] Comment on above: Order Comment: Speci men Type: BLOOD SPECIMENOrdering Facility: [facility] Address: [address] [place] [address] Performed By: #### 2 4323-8, LIPNF ####[facility] LABCLIA [id number] [place] [address] [place] Urea nitrogen [Mass/Vol] 19 mg/dL Normal 7-21 [facility] Comment on above: Order Comment: Speci men Type: BLOOD SPECIMENOrdering Facility: [facility] Address: [address] [place] [address] Performed By: #### 2 4323-8, LIPNF ####[facility] LABCLIA [id number] [place] [id number] [place] HbA1c (Bld)on 08-18-2024 Average glucose Estimated from glycated hemoglobin (Bld) [Mass/Vol] 160 mg/dL [facility] Comment on above: eAG: (Estimated aver age glucose) is a calculated value from HgbA1c and is unit support representative of the average blood glucose level in the last 2-3 month period. HbA1c (Bld) [Mass fraction] 7.2 % High 4.3 - 5.6 % [facility] Comment on above: [place] Diabetes As sociation guidelines indicate that patients with HgbA1c in the range 5.7-6.4% are at increased risk for development of diabetes, and intervention by lifestyle modification may be beneficial. HgbA1c greater or equal to 6.5% is considered diagnostic of diabetes. Interpretation and review of laboratory results Abnormal [facility] Average glucose Estimated from glycated hemoglobin (Bld) [Mass/Vol] 160 mg/dL Normal [facility] Comment on above: Order Comment: Dianne hrenández Type: BLOOD SPECIMENOrdering Facility: [facility] Address: [address] [place] [address] Result Comment: eAG: (Estimated average glucose) is a calculated value from HgbA1c and is unit support representative of the average blood glucose level in the last 2-3 month period. Performed By: #### 5 5454-3 ####[facility] LABIA [id number] [place] [address] [place] HbA1c (Bld) [Mass fraction] 7.2 % High 4.3-5.6 [facility] Comment on above: Order Comment: Dianne hernández Type: BLOOD SPECIMENOrdering Facility: [facility] Address: [address] [place] [address] Result Comment: [place] Diabetes Association guidelines indicate that patients with HgbA1c in the range 5.7-6.4% are at increased risk for development of diabetes, and intervention by lifestyle modification may be beneficial. HgbA1c greater or equal to 6.5% is considered diagnostic of diabetes. Performed By: #### 5 5454-3 ####[facility] LABCLIA [id number] [place] [address] [place] LIPID PANEL, NONFASTINGon Cholesterol [Mass/Vol] 161 mg/dL Normal <200 [facility] Comment on above: Order Comment: Dianne hernández Type: BLOOD SPECIMENOrdering Facility: [facility] Address: [address] [place] [address] Result Comment: <200 mg/dL, Desirable 200-239 mg/dL, Borderline high >239 mg/dL, High Performed By: #### 2 4323-8, LIPNF ####[facility] LABCLIA [id number] [address] OF [place] HDL CHOLESTEROL, NF 40 mg/dL Normal >39 [facility] Comment on above: Order Comment: Dianne edgar Type: BLOOD SPECIMENOrdering Facility: [facility] Address: [address] [place] [address] Result Comment: 40-5 9 mg/dL, Acceptable >59 mg/dL, High: Negative risk factor for coronary heart disease <40 mg/dL, Low: Positive risk factor for coronary heart disease Performed By: #### 2 4323-8, LIPNF ####[facility] LABCLIA [id number] [address] LDL CHOLESTEROL CALCULATED, NF 85 mg/dL Normal <100 [facility] Comment on above: Order Comment: Dianne edgar Type: BLOOD SPECIMENOrdering Facility: [facility] Address: [address] [place] [address] Result Comment: <100 mg/dL, Optimal 100-129 mg/dL, Near optimal/above optimal 130-159 mg/dL, Borderline high 160-189 mg/dL, High >189 mg/dL, Very high Secondary prevention optimal LDL Cholesterol levels are recommended to be <70 mg/dL LDL cholesterol is calculated using the Douglass-NIH equation. Performed By: #### 2 4323-8, LIPNF ####[facility] LABCLIA [id number] [address] OF [facility] LDL/HDL RATIO, NF 2.13 mg/dL Normal <2.54 [facility] Comment on above: Order Comment: Dianne edgar Type: BLOOD SPECIMENOrdering Facility: [facility] Address: [address] [place] [address] Result Comment: Cris doyle: 1. National Cholesterol Education Program ATP III Guideline At-A-Glance Quick Desk Reference: National Heart, Lung, and Blood Cas[place]. National Institutes of Health. 2001: NIH Publication No. 01-3305. 2. An International Atherosclerosis Society position paper: global recommendations for the management of dyslipidemia: executive summary, Atherosclerosis. 2014: 232(2):410-413. Performed By: #### 2 4323-8, LIPNF ####[facility] LABCLIA [id number] [place] [id number] [place] NON HDL CHOL, NF 121 mg/dL Normal <130 [facility] Comment on above: Order Comment: Speci men Type: BLOOD SPECIMENOrdering Facility: [facility] Address: [address] [place] [address] Result Comment: <130 mg/dL, Optimal 130-159 mg/dL, Near optimal/above optimal 160-189 mg/dL, Borderline high 190-219 mg/dL, High >219 mg/dL, Very high Secondary prevention optimal non HDL Cholesterol levels are recommended to be <100 mg/dL Performed By: #### 2 4323-8, LIPNF ####[facility] LABCLIA [id number] [place] [address] [place] T CHOL/HDL RATIO NF 4.03 mg/dL Normal <5.10 [facility] Comment on above: Order Comment: Speci men Type: BLOOD SPECIMENOrdering Facility: [facility] Address: [address] [place] [address] Performed By: #### 2 4323-8, LIPNF ####[facility] LABCLIA [id number] [place] [id number] [place] TRIGLYCERIDES, NF 214 mg/dL High <150 [facility] Comment on above: Order Comment: Speci men Type: BLOOD SPECIMENOrdering Facility: [facility] Address: [address] [place] [id number] Result Comment: <150 mg/dL, Normal 150-199 mg/dL, Borderline high 200-499 mg/dL, High >499 mg/dL, Very high Performed By: #### 2 4323-8, LIPNF ####[facility] LABCLIA [id number] [address] [address] [place] VLDL CHOLESTEROL, NF 34 mg/dL High <30 [facility] Comment on above: Order Comment: Speci men Type: BLOOD SPECIMENOrdering Facility: [facility] Address: [address] [place] [address] Performed By: #### 2 4323-8, LIPNF ####[facility] LABCLIA [id number] [place]ERNABE [id number] [place] [address] OF [facility] CNOVon 07-30-2024 CNOV Office Visit (PNMDNA ) -- WILTON KHAN V ([id number]) 1960 F Date Time Provider Department 07/30/24 11:30 AM ALEAH DRISCOLL PNKASIE During your visit today, we recorded the following information about you: Pulse 65/minute Aleah Driscoll MD 07/30/2024 12:51 PM Signed [facility] Date: July 30, 2024 - 11:20 AM Wilton Khan is seen in consultation requested by Nehemiah Herbert for an opinion regarding knee and back pain. My final recommendations will be communicated back to the requesting physician by way of shared medical record or via US mail. Piedad Chief Complaint: back and knee pain SUBJECTIVE: Wilton Khan, is a 64 year old female with morbid obesity who presents with bilateral knee worse on the left side and back pain. The pain started years ago, no specific preceding injury or trauma.. The pain onset was gradual and chronic in nature. The patient states that the current pain is persistent. Her pain is located in the bilateral knees and and intermittently radiates to the upper leg and involves the frontal distribution with burning dysesthesia.// The pain is described as numbness, pressure, and stiffness. The pain intensity is rated 8. The pain is exacerbated by prolonged sitting and relieved by medication, reposition, relaxation, cold, exercise, heat, pillow support, and positioning. Symptoms interfere with physical activity, walking, sleeping, cooking, household cleaning, and lifting. 20% pain in spine vs 80% (radiating) pain in the extremity. Litigation: No. Worker's Compensation: No. Prior pain treatment has included: Medication(s): Tizanidine, [place], Cymbalta, Gabapentin, Tylenol Arthritis, Percocet, ibuprofen Injection(s): [address] Driscoll with substantial relief. Patient Entered Questionnaires PROMIS Score Percentiles 08/23/2023 03/10/2024 06/18/2024 PROMIS Global Health Scale Physical Health Percentile 15 2 10 Mental Health Percentile 19* 2 9 Patient-reported 07/26/2024 07/29/2024 Physical Health Physical Function Percentile 0 Pain Interference Percentile 2 Percentiles provide an indication of how the patient's score ranks in relation to the general population. Higher percentile rankings indicate better function/quality of life. 50th percentile is the average of the general population and indicates half of respondents had a worse score. > 31st percentile is within normal limits or better * < 31st percentile is at least ? SD worse than population, which may be clinically relevant < 16th percentile is at least 1 SD worse than population and warrants attention ALLERGIES Allergen Reactions Lyrica [Pregabalin] Anaphylaxis Not sure if accurate. Can take gabapentin. Patient is unsure of reaction. Accupril [Quinapril* Intolerance dizziness Actos [Pioglitazone] Swelling Amlodipine Swelling Leg edema Atenolol Swelling Atorvastatin Intolerance Muscle cramps and weakness Celebrex [Celecoxib] Swelling Effexor [Venlafaxin* swelling high blood pressure Januvia [Sitaglipti* GI Upset, Other: See Comments Patient states she couldn't eat Metoprolol Swelling Mobic [Meloxicam] GI Upset Prozac [Fluoxetine * Intolerance tremor Remeron [Mirtazapin* Rash Risperidone Mental Status Change Seroquel [Quetiapin* hypertension,swelling Trulicity [Dulaglut* Intolerance Caused nausea and cramps Vancomycin Itching, Other: See Comments, Rash red all over Other reaction(s): Other: See Comments red all over Vioxx [Rofecoxib] GI Upset Wellbutrin [Bupropi* Intolerance nightmares Current Medications: Pain medications reviewed and reconciled in the medication list: Yes. Current Outpatient Medications Medication Sig tiZANidine (ZANAFLEX) 4 mg tablet Take 1 tablet by mouth every 8 hours as needed (muscle spasms). spironolactone (ALDACTONE) 25 mg tablet Take 1 tablet by mouth once daily. ARIPiprazole (ABILIFY) 10 mg tablet Take 1 tablet by mouth once daily. HYDROcodone-acetaminophen (NORCO) 5-325 mg per tablet Take 1 tablet by mouth two times a day as needed for pain for up to 30 days. traZODone (DESYREL) 100 mg tablet Take 1 tablet by mouth daily at bedtime. DULoxetine (CYMBALTA) 60 mg capsule Take 1 capsule by mouth once daily. rOPINIRole (REQUIP) 0.25 mg tablet Take 1 tablet by mouth daily at bedtime. topiramate (TOPAMAX) 25 mg tablet Take 1 tablet by mouth once daily. gabapentin (NEURONTIN) 600 mg tablet Take 1 tablet by mouth two times a day for 180 days. Blood-Glucose Meter,Continuous (DEXCOM G7 ADVANCED REGISTERED NURSE) [facility] Use to check blood sugar at least four (4) times daily. Blood-Glucose Sensor (DEXCOM G7 SENSOR) jessica Apply new sensor every ten (10) days. hydrOXYzine pamoate (VISTARIL) 25 mg capsule Take 1 capsule by mouth three times a day as needed. potassium chloride SR (MICRO-K) 8 mEq (more content not included)... Normal [facility] 07-02-2024 [facility] Telephone (KORINA) -- WILTON KHAN V ([id number]) 1960 F Date Time Provider Department 07/02/24 [facility] During your visit today, we recorded the following information about you: Micaela Reis LPN 07/02/2024 4:55 PM Signed Patient calling asking if PCP would be able to increase her [place] to three times daily? She said she is having a lot of arthritis pain both legs and lower back. Patient next appt is scheduled for 08/08/2024 virtual visit. Patient uses [facility] for her pharmacy. Please advise Nehemiah Herbert MD 07/02/2024 4:58 PM Signed We would need to refer her to pain management. Willing? Yokasta Reese RN 07/03/2024 8:44 AM Signed Called and left a voicemail for the Patient to call back and ask for a nurse to receive the providers message. LOLY Cruz Krystle, RN 07/03/2024 8:55 AM Signed Patient returns call and provider message below reviewed. Patient agreeable to pain management. Would like to stay local with [facility] but if not possible then would want referral sent to [facility]. LOLY Easton William J, MD 07/03/2024 9:46 AM Signed Referral placed Micaela Reis LPN 07/03/2024 9:52 AM Signed Phoned patient and assisted with transfer to master scheduler to get pain management appt set up. Allergies As of Date: 07/02/2024 Noted Allergy Reaction LYRICA (PREGABALIN) 08/05/2012 10 - Anaphylaxis Comments: Not sure if accurate. Can take gabapentin. Patient is unsure of reaction. ACCUPRIL (QUINAPRIL HCL) 08/12/2005 5 - Intolerance Comments: dizziness ACTOS (PIOGLITAZONE) 05/14/2020 7 - Swelling AMLODIPINE 04/24/2008 7 - Swelling Comments: Leg edema ATENOLOL 09/29/2010 7 - Swelling ATORVASTATIN 11/01/2017 5 - Intolerance Comments: Muscle cramps and weakness CELEBREX (CELECOXIB) 11/25/2020 7 - Swelling EFFEXOR (VENLAFAXINE HCL) 09/22/2005 Comments: swelling high blood pressure JANUVIA (SITAGLIPTIN) 09/21/2011 8 - GI Upset 14 - Other: See Comments Comments: Patient states she couldn't eat METOPROLOL 09/21/2009 7 - Swelling MOBIC (MELOXICAM) 08/12/2005 8 - GI Upset PROZAC (FLUOXETINE HCL) 08/12/2005 5 - Intolerance Comments: tremor REMERON (MIRTAZAPINE) 11/25/2020 2 - Rash RISPERIDONE 12/22/2009 1 - Mental Status Change SEROQUEL (QUETIAPINE FUMARATE) 10/05/2006 Comments: hypertension,swelling TRULICITY (DULAGLUTIDE) 05/10/2023 5 - Intolerance Comments: Caused nausea and cramps VANCOMYCIN 08/10/2017 9 - Itching 14 - Other: See Comments 2 - Rash Comments: red all over Other reaction(s): Other: See Comments red all over VIOXX (ROFECOXIB) 08/12/2005 8 - GI Upset WELLBUTRIN (BUPROPION HCL) 08/12/2005 5 - Intolerance Comments: nightmares Date Reviewed: 06/02/2024 Reviewed by: Louie Wade MA - Fully Assessed Reason for Visit: Patient Question [9427] Primary Visit Diagnosis:DDD (degenerative disc disease), cervical [M50.30] Other Visit Diagnoses:Diffuse myofascial pain syndrome [M79.18] Bilateral primary osteoarthritis of knee [M17.0] Order(s):CONSULT TO PAIN MGT [271006] Order #: [id number]: 1 FUTURE Prescriptions as of 07/03/2024 - traZODone (DESYREL) 100 mg tablet Take 1 tablet by mouth daily at bedtime. - DULoxetine (CYMBALTA) 60 mg capsule Take 1 capsule by mouth once daily. - ARIPiprazole (ABILIFY) 10 mg tablet Take 1 tablet by mouth once daily. - rOPINIRole (REQUIP) 0.25 mg tablet Take 1 tablet by mouth daily at bedtime. - topiramate (TOPAMAX) 25 mg tablet Take 1 tablet by mouth once daily. - HYDROcodone-acetaminophen (NORCO) 5-325 mg per tablet Take 1 tablet by mouth two times a day as needed for pain for up to 30 days. - gabapentin (NEURONTIN) 600 mg tablet Take 1 tablet by mouth two times a day for 180 days. - tiZANidine (ZANAFLEX) 4 mg tablet Take 1 tablet by mouth every 8 hours as needed (muscle spasms). - Blood-Glucose Meter,Continuous (DEXCOM G7 ADVANCED REGISTERED NURSE) [facility] Use to check blood sugar at least four (4) times daily. - Blood-Glucose Sensor (DEXCOM G7 SENSOR) jessica Apply new sensor every ten (10) days. - hydrOXYzine pamoate (VISTARIL) 25 mg capsule Take 1 capsule by mouth three times a day as needed. - spironolactone (ALDACTONE) 25 mg tablet Take 1 tablet by mouth once daily. - potassium chloride SR (MICRO-K) 8 mEq cpER Take 1 capsule by mouth daily with breakfast. - pravastatin (PRAVACHOL) 20 mg tablet Take 1 tablet by mouth daily at bedtime. - furosemide (LASIX) 80 mg tablet Take 1 tablet by mouth once daily. - famotidine (PEPCID) 40 mg tablet Take 1 tablet by mouth once daily. - Cholecalciferol, Vitamin D3, 125 mcg (5,000 unit) cap Take 1 capsule by mouth once daily. - ucglkail-chga-lem3-C-gio- bosw (OSTEO BI-FLEX TRIPLE STRENGTH) 750 mg-644 mg- 30 mg-1 mg tab Take 1 tablet by mouth two times a day. - insulin glargine (LANTUS SOLOSTAR U-100 INSULIN) 100 unit/m (more content not included)... Normal [facility]20[facility] -- WILTON KHAN V ([id number]) 1960 F Date Time Provider Department 06/06/24 JOI MARKHAM During your visit today, we recorded the following information about you: Daisy Perea, LOLY 06/06/2024 11:45 AM Signed patient is calling in due to she was seen on Sunday in office and was taken off of cymbalta, trazadone, and topirmate. those medication were replaced to amitriptyline at night. patient is calling in stating that she is not feeling well on this medication or with being off the other medication. patient states that it feels like her heart is racing (no chest pain or SOB), has leg weakness, fatigue is worse, and like she just wants to sleep. Patient is wondering what she is to do. Please review and advise. patient needs called back with information. Christal Rasmussen RN 06/06/2024 12:55 PM Signed Patient calling back. Crying. States she can't stop crying and is not sure why. States I can't take this. No SI/HI. Asked her what she is feeling, she states I don't know. I could just scream. States she feels she may need to go back on medications that were changed for her this week during her 06/02/24 visit with Dario Markham CNP. States she doesn't know what she should do. Reports she lives alone. Has a sister she could call to talk to. Says she is unable to come in for OV today or do virtual visit. During this call, patient noted that she has hydroxyzine medication that was ordered for her earlier this year, but she has not taken in awhile. States she will take one of those now and see if this helps her. Dario Markham CNP is out of the office today. Pt asking if Dr. Herbert could review and advise anything. Informed pt to call back with an update later this afternoon or if sx's worsen. LOLY Hedrick William J, MD 06/06/2024 1:10 PM Signed It looks like she stopped several medicines. Did she wean them? Does she still have them at home? Christal Rasmussen RN 06/06/2024 1:37 PM Signed Attempted to contact patient. No answer. Message left for pt to call office back. Please see Dr. Herbert's note below. LOLY eHdrick Tara, LPN 06/06/2024 1:45 PM Signed Spoke with patient. She does have the medication that was stopped. She is very tearful. Feeling anxious and hopeless. Adela is there with her. She has no plans to harm herself. Her pain has been terrible. It is everywhere. [place] does help her with a lot of it. She said she would be sleeping ok if not for the pain also. Nehemiah Herbert MD 06/06/2024 1:48 PM Signed Resume cymbalta and then topamax at once a day. Make sure has a follow up. Call next week with update or sooner Brittany Caban LPN 06/06/2024 1:51 PM Signed Patient notified and verbalizes understanding. Will call to check on her again. Brittany Valencia LPN 06/06/2024 4:54 PM Signed Checked back in with patient. She is feeling much better. She feels fine going into the weekend. She knows that can call in and speak with nurse agricultural economics teacher and can always call crisis if needed. Will work on setting up a follow up appt when speaking with her next week. Louie Wade MA 06/09/2024 10:42 AM Signed Spoke with patient to follow up on an update. She is feeling much better. She still has a little shakiness but has improved greatly improved. She will call back if needed. Louie Wade MA June 09, 2024 10:40 AM Allergies As of Date: 06/06/2024 Noted Allergy Reaction LYRICA (PREGABALIN) 08/05/2012 10 - Anaphylaxis Comments: Not sure if accurate. Can take gabapentin. Patient is unsure of reaction. ACCUPRIL (QUINAPRIL HCL) 08/12/2005 5 - Intolerance Comments: dizziness ACTOS (PIOGLITAZONE) 05/14/2020 7 - Swelling AMLODIPINE 04/24/2008 7 - Swelling Comments: Leg edema ATENOLOL 09/29/2010 7 - Swelling ATORVASTATIN 11/01/2017 5 - Intolerance Comments: Muscle cramps and weakness CELEBREX (CELECOXIB) 11/25/2020 7 - Swelling EFFEXOR (VENLAFAXINE HCL) 09/22/2005 Comments: swelling high blood pressure JANUVIA (SITAGLIPTIN) 09/21/2011 8 - GI Upset 14 - Other: See Comments Comments: Patient states she couldn't eat METOPROLOL 09/21/2009 7 - Swelling MOBIC (MELOXICAM) 08/12/2005 8 - GI Upset PROZAC (FLUOXETINE HCL) 08/12/2005 5 - Intolerance Comments: tremor REMERON (MIRTAZAPINE) 11/25/2020 2 - Rash RISPERIDONE 12/22/2009 1 - Mental Status Change SEROQUEL (QUETIAPINE FUMARATE) 10/05/2006 Comments: hypertension,swelling TRULICITY (DULAGLUTIDE) 05/10/2023 5 - Intolerance Comments: Caused nausea and cramps VANCOMYCIN 08/10/2017 9 - Itching 14 - Other: See Comments 2 - Rash Comments: red all over Other reaction(s): Other: See Comments red all over VIOXX (ROFECOXIB) 08/12/2005 8 - GI Upset WELLBUTRIN (BUPROPION HCL) 08/12/2005 5 - Intolerance Comments: nightmares Date Reviewed: 06/02/2024 Reviewed by: Louie Wade MA - Fully Asses (more content not included)... Normal [facility] AMPHETAMINE CONFIRM, URINEon 06-02-2024 Amphetamine Confirm (U) [Mass/Vol] <25 Normal <25 [facility] Comment on above: Order Comment: Speci men Type: URINE SPECIMENOrdering Facility: [facility] Address: [address] [place] [address] Result Comment: Meth ylphenidate does not contain or metabolize to amphetamine. Performed By: #### L [id number], UTOX2, UAMP ####[facility] LABCLIA [id number] [place] [address] [place] MDA, UR <25 Normal <25 [facility] Comment on above: Order Comment: Speci men Type: URINE SPECIMENOrdering Facility: [facility] Address: [address] [place] [address] Result Comment: 3,4 Methylenedioxyamphetamine is also known as MDA. Performed By: #### L [id number], UTOX2, UAMP ####[facility] LABCLIA [id number] [place] [address] [place] MDEA, UR <25 Normal <25 [facility] Comment on above: Order Comment: Speci men Type: URINE SPECIMENOrdering Facility: [facility] Address: [address] [place] [address] Result Comment: 3,4 Tfjezcvqjlbqpw-C-oaztpoloafhfzmxf is also known as MDEA. Performed By: #### L [id number], UTOX2, UAMP ####[facility] LABCLIA [id number] [place] [address] [place] MDMA, UR <25 Normal <25 [facility] Comment on above: Order Comment: Speci men Type: URINE SPECIMENOrdering Facility: [facility] Address: [address] [place] [address] Result Comment: 3,4- Methylenedioxymethamphetamine is also known as MDMA. Performed By: #### L [id number], UTOX2, UAMP ####[facility] [id number] [place] [address] [place] Methamphetamine Confirm (U) [Mass/Vol] <25 Normal <25 [facility] Comment on above: Order Comment: Speci men Type: URINE SPECIMENOrdering Facility: [facility] Address: [address] [place] [address] Performed By: #### L [id number], UTOX2, UAMP ####[facility] [id number] [address] [place] [facility] Normal [facility] Comment on above: Order Comment: Speci men Type: URINE SPECIMENOrdering Facility: [facility] Address: [address] [place] [address] Result Comment: For medical purposes only. Not valid for legal or forensic purposes. This test was developed, and its performance characteristics determined by the [facility] Department of Pathology and Laboratory Medicine. It has not been cleared or approved by the FDA. The [facility] Department of Pathology and Laboratory Medicine is regulated under CLIA as qualified to perform high-complexity testing. This test is used for clinical purposes. It should not be regarded as investigational or for research. Performed By: #### L [id number], UTOX2, UAMP ####[facility] [id number] [place] [address] [place] PHENTERMINE, UR <25 Normal <25 [facility] Comment on above: Order Comment: Speci men Type: URINE SPECIMENOrdering Facility: [facility] Address: [address] [place] [address] Performed By: #### L [id number], UTOX2, UAMP ####[facility] LABCLIA [id number] [place] [address] [place] Bacteria Ur Culton Bacteria identified Cx Nom (U) ORGANISM ID: 1 50,000-<100,000 CFU/ml Normal urogenital michele Normal [facility] Comment on above: Performed By: #### 6 30-4 ####[facility] LABCLIA [id number] [place] [id number] [place] Basic metabolic 2000 panelon 06-02-2024 Anion gap [Moles/Vol] 10 mmol/L Normal 8-15 [facility] Comment on above: Order Comment: Speci men Type: BLOOD SPECIMENOrdering Facility: [facility] Address: [address] [place] [address] Performed By: #### 1 988-5, 40151-3, 73995-5 ####[facility] LABIA [id number] [place] [address] [place] Calcium [Mass/Vol] 9.2 mg/dL Normal 8.5-10.2 [facility] Comment on above: Order Comment: Speci men Type: BLOOD SPECIMENOrdering Facility: [facility] Address: [address] [place] [address] Performed By: #### 1 988-5, 19114-6, 44831-0 ####[facility] LABCLIA [id number] [place] [id number] [place] Chloride [Moles/Vol] 104 mmol/L Normal 98-107 [facility] Comment on above: Order Comment: Speci men Type: BLOOD SPECIMENOrdering Facility: [facility] Address: [address] [place] [address] Performed By: #### 1 988-5, 31528-3, 29027-1 ####[facility] LABIA [id number] [address] [address] [place] CO2 [Moles/Vol] 28 mmol/L Normal 22-30 [facility] Comment on above: Order Comment: Speci men Type: BLOOD SPECIMENOrdering Facility: [facility] Address: [address] [place] [address] Performed By: #### 1 988-5, 88882-3, 60759-8 ####[facility] LABIA [id number] [address] [address] [place] Creatinine [Mass/Vol] 0.59 mg/dL Normal 0.58-0.96 [facility] Comment on above: Order Comment: Speci men Type: BLOOD SPECIMENOrdering Facility: [facility] Address: [address] [place] [address] Performed By: #### 1 988-5, 04185-0, 20290-3 ####[facility] [id number] [place] [address] [place] Creatinine and Glomerular filtration rate.predicted panel (S/P/Bld) 101 mL/min/1.73m??? Normal >=60 [facility] Comment on above: Order Comment: Speci men Type: BLOOD SPECIMENOrdering Facility: [facility] Address: [address] [place] [address] Result Comment: Sidney mated Glomerular Filtration Rate (eGFR) is calculated using the 2020 CKD-EPI creatinine equation. This equation utilizes serum creatinine, sex, and age as parameters. The creatinine assay has traceable calibration to isotope dilution-mass spectrometry. Refer to KDIGO guidelines for clinical interpretation. In patients with unstable renal function, e.g. those with acute kidney injury, the eGFR may not accurately reflect actual GFR. Performed By: #### 1 988-5, 10105-8, 42165-7 ####[facility] LABIA [id number] [address] [address] [place] Glucose [Mass/Vol] 150 mg/dL High 74-99 [facility] Comment on above: Order Comment: Speci men Type: BLOOD SPECIMENOrdering Facility: [facility] Address: [address] [place] [address] Result Comment: The [place] Diabetes Association (ADA) provides guidance for cutoff values for fasting glucose and random glucose. The ADA defines fasting as no caloric intake for at least 8 hours. Fasting plasma glucose results between 100 to 125 [...] Standards of Medical Care in Diabetes 2016, [place] [employer] Association. Diabetes Care. 2016.39(Suppl 1). Performed By: #### 1 988-5, 13550-9, 81717-7 ####[facility] LABCLIA [id number] [place] [address] [place] Potassium [Moles/Vol] 4.3 mmol/L Normal 3.7-5.1 [facility] Comment on above: Order Comment: Speci men Type: BLOOD SPECIMENOrdering Facility: [facility] Address: [address] [place] [address] Performed By: #### 1 988-5, 14705-0, 28036-6 ####[facility] LABCLIA [id number] [place] [address] [place] Sodium [Moles/Vol] 142 mmol/L Normal 136-144 [facility] Comment on above: Order Comment: Speci men Type: BLOOD SPECIMENOrdering Facility: [facility] Address: [address] [place] [address] Performed By: #### 1 988-5, 68227-3, 33677-0 ####[facility] LABCLIA [id number] [address] [address] [place] Urea nitrogen [Mass/Vol] 23 mg/dL High 7-21 [facility] Comment on above: Order Comment: Speci men Type: BLOOD SPECIMENOrdering Facility: [facility] Address: [address] [place] [address] Performed By: #### 1 988-5, 99409-1, 04902-0 ####[facility] LABCLIA [id number] [place] [address] [place] CBC W Auto Differential pane l (Bld)on 06-02-2024 Basophils (Bld) [#/Vol] 10*3/uL Normal <0.11 [facility] Comment on above: Order Comment: Speci men Type: BLOOD SPECIMENOrdering Facility: [facility] Address: [address] [place] [address] Performed By: #### 4 537-7, 59968-0 ####[facility] LABCLIA [id number] [place] [address] [place] Basophils/100 WBC (Bld) 0.4 % Normal [facility] Comment on above: Order Comment: Speci men Type: BLOOD SPECIMENOrdering Facility: [facility] Address: [address] [place] [address] Performed By: #### 4 537-7, 18837-8 ####[facility] LABCLIA [id number] [place] [address] [place] Differential cell count method Nom (Bld) Auto Normal [facility] Comment on above: Order Comment: Speci men Type: BLOOD SPECIMENOrdering Facility: [facility] Address: [address] [place] [address] Performed By: #### 4 537-7, 01988-9 ####[facility] LABCLIA [id number] [place] [address] [place] Eosinophils (Bld) [#/Vol] 0.09 10*3/uL Normal <0.46 [facility] Comment on above: Order Comment: Speci men Type: BLOOD SPECIMENOrdering Facility: [facility] Address: [address] [place] [address] Performed By: #### 4 537-7, 28326-0 ####[facility] LABCLIA [id number] [address] [address] [place] Eosinophils/100 WBC (Bld) 1.6 % Normal [facility] Comment on above: Order Comment: Speci men Type: BLOOD SPECIMENOrdering Facility: [facility] Address: [address] [place] [address] Performed By: #### 4 537-7, 36221-2 ####[facility] LABIA [id number] [place] [address] [place] Erythrocyte distribution width (RBC) [Ratio] 12.8 % Normal 11.5-15.0 [facility] Comment on above: Order Comment: Speci men Type: BLOOD SPECIMENOrdering Facility: [facility] Address: [address] [place] [address] Performed By: #### 4 537-7, 80123-4 ####[facility] LABIA [id number] [place] [address] [place] Hematocrit (Bld) [Volume fraction] 36.5 % Normal 36.0-46.0 [facility] Comment on above: Order Comment: Speci men Type: BLOOD SPECIMENOrdering Facility: [facility] Address: [address] [place] [address] Performed By: #### 4 537-7, 43077-6 ####[facility] LABIA [id number] [place] [id number] [place] Hemoglobin (Bld) [Mass/Vol] 12.0 g/dL Normal 11.5-15.5 [facility] Comment on above: Order Comment: Speci men Type: BLOOD SPECIMENOrdering Facility: [facility] Address: [address] [place] [address] Performed By: #### 4 537-7, 85752-6 ####[facility] LABCLIA [id number] [place] [address] [place] Immature granulocytes (Bld) [#/Vol] 10*3/uL Normal <0.10 [facility] Comment on above: Order Comment: Speci men Type: BLOOD SPECIMENOrdering Facility: [facility] Address: [address] [place] [address] Performed By: #### 4 537-7, 25628-1 ####[facility] LABCLIA [id number] [place] [address] [place] Immature granulocytes/100 WBC (Bld) 0.4 % Normal [facility] Comment on above: Order Comment: Speci men Type: BLOOD SPECIMENOrdering Facility: [facility] Address: [address] [place] [address] Performed By: #### 4 537-7, 54745-1 ####[facility] LABCLIA [id number] [place] [address] [place] Lymphocytes (Bld) [#/Vol] 1.30 10*3/uL Normal 1.00-4.00 [facility] Comment on above: Order Comment: Speci men Type: BLOOD SPECIMENOrdering Facility: [facility] Address: [address] [place] [address] Performed By: #### 4 537-7, 43593-4 ####[facility] LABCLIA [id number] [place] [id number] [place] Lymphocytes/100 WBC (Bld) 23.0 % Normal [facility] Comment on above: Order Comment: Speci men Type: BLOOD SPECIMENOrdering Facility: [facility] Address: [address] [place] [address] Performed By: #### 4 537-7, 81995-3 ####[facility] LABCLIA [id number] [place] [address] [place] MCH (RBC) [Entitic mass] 29.8 pg Normal 26.0-34.0 [facility] Comment on above: Order Comment: Speci men Type: BLOOD SPECIMENOrdering Facility: [facility] Address: [address] [place] [address] Performed By: #### 4 537-7, 79024-9 ####[facility] [id number] [place] [address] [place] MCHC (RBC) [Mass/Vol] 32.9 g/dL Normal 30.5-36.0 [facility] Comment on above: Order Comment: Speci men Type: BLOOD SPECIMENOrdering Facility: [facility] Address: [address] [place] [address] Performed By: #### 4 537-7, 98493-7 ####[facility] [id number] [place] [address] [place] MCV (RBC) [Entitic vol] 90.6 fL Normal 80.0-100.0 [facility] Comment on above: Order Comment: Speci men Type: BLOOD SPECIMENOrdering Facility: [facility] Address: [address] [place] [address] Performed By: #### 4 537-7, 45501-3 ####[facility] [id number] [place] [address] [place] Monocytes (Bld) [#/Vol] 0.35 10*3/uL Normal <0.87 [facility] Comment on above: Order Comment: Speci men Type: BLOOD SPECIMENOrdering Facility: [facility] Address: [address] [place] [address] Performed By: #### 4 537-7, 85406-7 ####[facility] [id number] [place] [address] [place] Monocytes/100 WBC (Bld) 6.2 % Normal [facility] Comment on above: Order Comment: Speci men Type: BLOOD SPECIMENOrdering Facility: [facility] Address: [address] [place] [address] Performed By: #### 4 537-7, 62016-6 ####[facility] LABCLIA [id number] [facility]UEPROVID[facility] [address], [place] [address] [place] Neutrophils (Bld) [#/Vol] 3.87 10*3/uL Normal 1.45-7.50 [facility] Comment on above: Order Comment: Speci men Type: BLOOD SPECIMENOrdering Facility: [facility] Address: [address] [place] [address] Performed By: #### 4 537-7, 70856-6 ####[facility] LABCLIA [id number] [facility] [place] [address] [place] Neutrophils/100 WBC (Bld) 68.4 % Normal [facility] Comment on above: Order Comment: Speci men Type: BLOOD SPECIMENOrdering Facility: [facility] Address: [address] [place] [address] Performed By: #### 4 537-7, 52379-7 ####[facility] LABCLIA [id number] [facility] [address], [place] [address] [place] Nucleated RBC (Bld) [#/Vol] 10*3/uL Normal <0.01 [facility] Comment on above: Order Comment: Speci men Type: BLOOD SPECIMENOrdering Facility: [facility] Address: [address] [place] [address] Performed By: #### 4 537-7, 52481-5 ####[facility] LABCLIA [id number] [facility]INICD AV[facility]UEPROVID[facility] [facility] [address], [facility] [place] Nucleated RBC/100 WBC (Bld) [Ratio] 0.0 /100 WBC Normal [facility] Comment on above: Order Comment: Speci men Type: BLOOD SPECIMENOrdering Facility: [facility] Address: [address] [place] [address] Performed By: #### 4 537-7, 16009-7 ####[facility] LABIA [id number] [place] [address] [place] Platelet mean volume (Bld) [Entitic vol] 11.5 fL Normal 9.0-12.7 [facility] Comment on above: Order Comment: Speci men Type: BLOOD SPECIMENOrdering Facility: [facility] Address: [address] [place] [address] Performed By: #### 4 537-7, 72001-8 ####[facility] LABIA [id number] [place] [address] [place] Platelets (Bld) [#/Vol] 211 10*3/uL Normal 150-400 [facility] Comment on above: Order Comment: Speci men Type: BLOOD SPECIMENOrdering Facility: [facility] Address: [address] [place] [address] Performed By: #### 4 537-7, 96326-8 ####[facility] [id number] [place] [address] [place] RBC (Bld) [#/Vol] 4.03 10*6/uL Normal 3.90-5.20 [facility] Comment on above: Order Comment: Speci men Type: BLOOD SPECIMENOrdering Facility: [facility] Address: [address] [place] [address] Performed By: #### 4 537-7, 60403-0 ####[facility] LABIA [id number] [place] [address] [place] WBC (Bld) [#/Vol] 5.65 10*3/uL Normal 3.70-11.00 [facility] Comment on above: Order Comment: Speci men Type: BLOOD SPECIMENOrdering Facility: [facility] Address: [address] [place] [address] Performed By: #### 4 537-7, 42429-5 ####[facility] [place] [id number] [facility] [address] STATES OF [facility] CNOVon 06-02-2024 CNOV Office Visit (FAMPWS ) -- WILTON KHAN V ([id number]) 1960 F Date Time Provider Department 06/02/24 10:40 AM [facility] During your visit today, we recorded the following information about you: Temperature Pulse Blood pressure 97.6 degrees 73/minute 130/72 Joi Markham, [employer] 06/02/2024 11:23 AM Signed This is a 64 year old female who presents today with: No chief complaint on file. HISTORY OF PRESENT ILLNESS: Wilton Khan is a 64 year old female. No chief complaint on file. Here today for pain. Having muscle spasms. Pain in fingers, shoulders, low back, knees, ankles, and legs in general. Taking percocet. [place] not helpful. On duloxetine and gabapentin 600 mg 2 x day- 3 times a day makes her sleepy. Also on topiramate 25 mg 2 x day. Pain for at least a month. No fever or chills PAST MEDICAL HISTORY: PAST MEDICAL HISTORY Diagnosis Date Abnormal glandular Papanicolaou smear of cervix 05/30/05 ABNL GLANDULAR PAP SMEAR CERVIX Acute gastritis without mention of hemorrhage Anxiety state, unspecified Arrhythmia Chronic cholecystitis Chronic obstructive pulmonary disease (COPD) ([facility]) Congestive heart failure (HCC) 10/03/2011 Diabetes ([facility]) diabetes II 2010 Diaphragmatic hernia without mention of obstruction or gangrene Dysthymic disorder Depression (non-psychotic) Esophageal reflux Essential hypertension, benign Generalized OA Hyperprolactinemia (HCC) 10/13/2005 Localized osteoarthrosis not specified whether primary or secondary, lower leg Major depressive disorder, recurrent episode Mucous polyp of cervix 07/19/05 Other and unspecified anterior pituitary hyperfunction (HCC) 10/13/05 elevated prolactin level-was normal in 2011 PMH - PAST MEDICAL HISTORY OF sleep apnea PMH - PAST MEDICAL HISTORY OF sleep apnea SVT (supraventricular tachycardia) (HCC) 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 Type 2 diabetes mellitus without complication, with long-term current use of insulin (HCC) 12/22/2013 PAST SURGICAL HISTORY Procedure Laterality Date BIOPSY CERVIX SINGLE/MULT/EXCISION OF LESION SPX 07/19/2005 endocervical polyp COLONOSCOPY FLX DX W/COLLJ SPEC WHEN PFRMD 01/09/2012 Colonoscopy repeat 10 years COLPOSCOPY CERVIX UPPER/ADJACENT VAGINA Colposcopy EGD TRANSORAL BIOPSY SINGLE/MULTIPLE 01/16/2007 ESOPHAGOGASTRODUODENOSCOPY TRANSORAL DIAGNOSTIC 01/09/2012 EGD HERNIA REPAIR HX 11/2015 ventral HYSTEROSCOPY DX 12/17/2014 [facility] LAPS SURG CHOLECYSTECTOMY W/CHOLANGIOGRAPHY 05/15/2008 PARATHYROID ALLERGIES Lyrica [Pregabalin], Accupril [Quinapril Hcl], Actos [Pioglitazone], Amlodipine, Atenolol, Atorvastatin, Celebrex [Celecoxib], Effexor [Venlafaxine Hcl], Januvia [Sitagliptin], Metoprolol, Mobic [Meloxicam], Prozac [Fluoxetine Hcl], Remeron [Mirtazapine], Risperidone, Seroquel [Quetiapine Fumarate], Trulicity [Dulaglutide], Vancomycin, Vioxx [Rofecoxib], and Wellbutrin [Bupropion Hcl] MEDICATIONS Current Outpatient Medications Medication Sig topiramate (TOPAMAX) 25 mg tablet Take 1 tablet by mouth two times a day. tiZANidine (ZANAFLEX) 4 mg tablet Take 1 tablet by mouth every 8 hours as needed (muscle spasms). Blood-Glucose Meter,Continuous (DEXCOM G7 ADVANCED REGISTERED NURSE) [facility] Use to check blood sugar at least four (4) times daily. Blood-Glucose Sensor (DEXCOM G7 SENSOR) jessica Apply new sensor every ten (10) days. hydrOXYzine pamoate (VISTARIL) 25 mg capsule Take 1 capsule by mouth three times a day as needed. ARIPiprazole (ABILIFY) 10 mg tablet Take 1 tablet by mouth once daily. potassium chloride SR (MICRO-K) 8 mEq cpER Take 1 capsule by mouth daily with breakfast. Blood-Glucose Transmitter (DoubleVerifyCOM G6 TRANSMITTER) jessica Apply new transmitter every 90 days. Clean transmitter with an alcohol swab with each sensor change. pravastatin (PRAVACHOL) 20 mg tablet Take 1 tablet by mouth daily at bedtime. furosemide (LASIX) 80 mg tablet Take 1 tablet by mouth once daily. famotidine (PEPCID) 40 mg tablet Take 1 tablet by mouth once daily. Cholecalciferol, Vitamin D3, 125 mcg (5,000 unit) cap Take 1 capsule by mouth once daily. pfnnlnqk-frlm-nir5-C-gio- bosw (OSTEO BI-FLEX TRIPLE STRENGTH) 750 mg-644 mg- 30 mg-1 mg tab Take 1 tablet by mouth two times a day. DULoxetine (CYMBALTA) 60 mg capsule Take 1 capsule by mouth once daily. insulin glargine (LANTUS SOLOSTAR U-100 INSULIN) 100 unit/mL (3 mL) Inject 30 Units subcutaneously every morning. traZODone (DESYREL) 100 mg tablet Take 1 tablet by mouth daily at bedtime. ibuprofen (MOTRIN) 800 mg tablet Take 1 tablet by mouth every 8 hours as needed for pain. Take with food. rOPINIRole (REQUIP) 0.25 mg tablet Take 1 tablet by mouth daily at bedtime. acetaminophen (ARTHRITIS PAIN RELIEF) 650 mg CR tablet Take 2 tablets by mouth every 8 hours as needed for pain. Not in same 8h period as Nor (more content not included)... Normal [facility] CRP SerPl-ncon 06-02-2024 CRP [Mass/Vol] 1.5 mg/dL High <0.9 [facility] Comment on above: Order Comment: Speci men Type: BLOOD SPECIMENOrdering Facility: [facility] Address: [address] [place] [address] Performed By: #### 1 988-5, 60304-0, 12441-3 ####[facility] LABCLIA [id number] [facility] [place] [address] [place] ESR Westergren method (Bld) [Velocity]on 06-02-2024 ESR (Bld) [Velocity] 15 mm/h [facility] Interpretation and review of laboratory results Normal [facility] ESR (Bld) [Velocity] 15 mm/h Normal 0-20 [facility] Comment on above: Order Comment: Speci men Type: BLOOD SPECIMENOrdering Facility: [facility] Address: [address] [place] [address] Performed By: #### 4 537-7, 00958-6 ####[facility] [id number] [place] [address] [place] Nuclear Ab IA Ql (S)on 06-02 IGOR SCR QUAL Negative Normal Negative [facility] Comment on above: Order Comment: Speci men Type: BLOOD SPECIMENOrdering Facility: [facility] Address: [address] [place] [address] Result Comment: The qualitative antinuclear antibody screen test performed using the following antigens: dsDNA, Chromatin, Ribosomal P, SS-A 60, SS-A 52, SS-B, Sm, SmRNP, SUPERVISOR TUMBLING [employer] ROLLING A, SUPERVISOR TUMBLING [employer] ROLLING 68, Scl-70, Mitra-1, and Centromere B. Methodology: Multiplex flow immunoassay. Performed By: #### 4 7383-5 ####[facility] [id number] [place] [address] [place] Rheumatoid fact SerPl-aCncon 06-02-2024 Rheumatoid factor Qn [IU]/mL Normal <16 [facility] Comment on above: Order Comment: Speci men Type: BLOOD SPECIMENOrdering Facility: [facility] Address: [address] [place] [address] Performed By: #### 1 988-5, 40171-1, 99621-3 ####[facility] [id number] [place] [address] [place] SPECIMEN VALIDITY, URINEon 0 06-02-2024 CREATININE,URINE 184.6 mg/dL Normal 20.0-300.0 [facility] Comment on above: Order Comment: Speci men Type: URINE SPECIMENOrdering Facility: [facility] Address: [address] [place] [address] Performed By: #### L [id number], UTOX2, UAMP ####[facility] LABCLIA [id number] [address] [address] [place] NITRITES,URINE 72 mg/L Normal <500 [facility] Comment on above: Order Comment: Speci men Type: URINE SPECIMENOrdering Facility: [facility] Address: [address] [place] [address] Performed By: #### L [id number], UTOX2, UAMP ####[facility] LABCLIA [id number] [place] [address] [place] OXIDANTS,URINE 54 mg/L Normal <200 [facility] Comment on above: Order Comment: Speci men Type: URINE SPECIMENOrdering Facility: [facility] Address: [address] [place] [address] Performed By: #### L [id number], UTOX2, UAMP ####[facility] LABCLIA [id number] [place] [id number] [place] pH (U) 5.9 [pH] Normal 4.5-8.0 [facility] Comment on above: Order Comment: Speci men Type: URINE SPECIMENOrdering Facility: [facility] Address: [address] [place] [address] Performed By: #### L [id number], UTOX2, UAMP ####[facility] LABCLIA [id number] [place] [id number] [place] SPEC GRAVITY,UR 1.012 Normal 1.003-1.035 [facility] Comment on above: Order Comment: Speci men Type: URINE SPECIMENOrdering Facility: [facility] Address: [address] [place] [address] Performed By: #### L [id number], UTOX2, UAMP ####[facility] LABCLIA [id number] [place] [address] [place] SPECIMEN VALIDITY QUALITY Specimen quality results within acceptable limits Normal [facility] Comment on above: Order Comment: Speci men Type: URINE SPECIMENOrdering Facility: [facility] Address: [address] [place] [address] Performed By: #### L [id number], UTOX2, UA ####[facility] LABCLIA [id number] [address] [place] TOXICOLOGY SCREEN, ROUTINE U RINEon 06-02-2024 Amphetamines Confirm (U) [Mass/Vol] Positive Abnormal Negative [facility] Comment on above: Cutoff threshold at 1000 ng/mL. Barbiturates Urine Negative Negative [facility] Comment on above: Cutoff threshold at 200 ng/mL. Benzodiazepines Urine Negative Negative [facility] Comment on above: Cutoff threshold at 200 ng/mL. Cannabinoids Screen Ql (U) Negative Negative [facility] Comment on above: Cutoff threshold at 50 ng/mL. Cocaine Ql (U) Negative Negative [facility] Comment on above: Cutoff threshold at 300 ng/mL. Ethanol (U) [Mass/Vol] mg/dL NINF - 11 mg/dL [facility] Interpretation and review of laboratory results Abnormal [facility] Opiates Screen Ql (U) Positive Abnormal Negative [facility] Comment on above: Cutoff threshold at 300 ng/mL. oxyCODONE cutoff Screen (U) [Mass/Vol] Negative Negative [facility] Comment on above: Cutoff threshold at 100 ng/mL. Phencyclidine Ql (U) Negative Negative [facility] Comment on above: Cutoff threshold at 25 ng/mL. Immunoassay screen o nly. Cross reactivity with other substances can occur with immunoassay screening. Detection of any drug(s) in this urine toxicology panel is presumptive only. These tests are for medical purposes only and should not be used for compliance monitoring, legal, or forensic use. Samples should be within normal physiological conditions (e.g. pH). This assay does not include adulteration/specimen validity testing. In clinical settings, confirmatory testing is at the practitioner's discretion [1]. If clinically indicated, confirmation by high specificity, quantitative methodology, which includes adulteration/specimen validity testing, may be requested on the same specimen through Client Services ([phone]) if contacted within 48 hours of initial testing. [1]Substance Abuse and Mental Health Services Administration (2012). Clinical Drug Testing in Primary Care Technical Assistance Publication Series 32. Department of Health and Human Services, [place], p.10. [facility] Amphetamines Confirm (U) [Mass/Vol] Positive Abnormal Negative [facility] Comment on above: Order Comment: Speci men Type: URINE SPECIMENOrdering Facility: [facility] Address: [address] [place] [address] Result Comment: Cuto ff threshold at 1000 ng/mL. Performed By: #### L [id number], UTOX2, UAMP ####[facility] LABCLIA [id number] [place] [address] [place] BARBITURATES, URINE Negative Normal Negative [facility] Comment on above: Order Comment: Speci men Type: URINE SPECIMENOrdering Facility: [facility] Address: [address] [place] [address] Result Comment: Cuto ff threshold at 200 ng/mL. Performed By: #### L [id number], UTOX2, UAMP ####[facility] LABCLIA [id number] [place] [address] [place] BENZODIAZEPINES, UR Negative Normal Negative [facility] Comment on above: Order Comment: Speci men Type: URINE SPECIMENOrdering Facility: [facility] Address: [address] [place] [address] Result Comment: Cuto ff threshold at 200 ng/mL. Performed By: #### L [id number], UTOX2, UAMP ####[facility] LABCLIA [id number] [place] [address] [place] Cannabinoids Screen Ql (U) Negative Normal Negative [facility] Comment on above: Order Comment: Speci men Type: URINE SPECIMENOrdering Facility: [facility] Address: [address] [place] [address] Result Comment: Cuto ff threshold at 50 ng/mL. Performed By: #### L [id number], UTOX2, UAMP ####[facility] LABCLIA [id number] [place] [address] [place] Cocaine Ql (U) Negative Normal Negative [facility] Comment on above: Order Comment: Speci men Type: URINE SPECIMENOrdering Facility: [facility] Address: [address] [place] [address] Result Comment: Cuto ff threshold at 300 ng/mL. Performed By: #### L [id number], UTOX2, UAMP ####[facility] LABIA [id number] [place] [address] [place] Ethanol (U) [Mass/Vol] <11 Normal <11 [facility] Comment on above: Order Comment: Speci men Type: URINE SPECIMENOrdering Facility: [facility] Address: [address] [place] [address] Performed By: #### L [id number], UTOX2, UAMP ####[facility] LABIA [id number] [place] [address] [place] Opiates Screen Ql (U) Positive Abnormal Negative [facility] Comment on above: Order Comment: Speci men Type: URINE SPECIMENOrdering Facility: [facility] Address: [address] [place] [address] Result Comment: Cuto ff threshold at 300 ng/mL. Performed By: #### L [id number], UTOX2, UAMP ####[facility] LABIA [id number] [place] [address] [place] oxyCODONE cutoff Screen (U) [Mass/Vol] Negative Normal Negative [facility] Comment on above: Order Comment: Speci men Type: URINE SPECIMENOrdering Facility: [facility] Address: [address] [place] [address] Result Comment: Cuto ff threshold at 100 ng/mL. Performed By: #### L [id number], UTOX2, UAMP ####[facility] LABCLIA [id number] [place] [address] [place] Phencyclidine Ql (U) Negative Normal Negative [facility] Comment on above: Order Comment: Speci men Type: URINE SPECIMENOrdering Facility: [facility] Address: [address] [place] [address] Result Comment: Cuto ff threshold at 25 ng/mL. Performed By: #### L [id number], UTOX2, UAMP ####[facility] LABCLIA [id number] [address] [place] CNOVon 04-29-2024 CNOV Office Visit (FAMPWS ) -- WILTON KHAN V ([id number]) 1960 F Date Time Provider Department 04/29/24 10:40 AM [facility] During your visit today, we recorded the following information about you: Pulse Respiration Blood pressure 75/minute 16/minute 116/73 Antonio Ghosh PA-C 04/29/2024 1:44 PM Signed 04/29/2024 Patient presents with: ER F/U: [facility] 04/25/24 chest pain; unknown cause SUBJECTIVE: This is a 64 year old that is here today for ER Follow Up. Patient was seen at [facility] ED on Sunday for chest pain, only while up and moving around. Described as sharp. Cardiac with ECG and labs, serial troponin was negative. Tells me chest pain has completely resolved, no SOB. She is having a returning ARAIZA and maxillary sinus pain and pressure. Now having green, purulent drainage. Recently treated for a sinus infection 2 weeks ago with a 7 day course of doxycycline. Symptoms started to improve on the antibiotic, and now returning. Denies worst ARAIZA of life. Denies calf pain. PAST MEDICAL HISTORY Diagnosis Date Abnormal glandular Papanicolaou smear of cervix 05/30/05 ABNL GLANDULAR PAP SMEAR CERVIX Acute gastritis without mention of hemorrhage Anxiety state, unspecified Arrhythmia Chronic cholecystitis Chronic obstructive pulmonary disease (COPD) ([facility]) Congestive heart failure ([facility]) 10/03/2011 Diabetes ([facility]) diabetes II 2010 Diaphragmatic hernia without mention of obstruction or gangrene Dysthymic disorder Depression (non-psychotic) Esophageal reflux Essential hypertension, benign Generalized OA Hyperprolactinemia ([facility]) 10/13/2005 Localized osteoarthrosis not specified whether primary or secondary, lower leg Major depressive disorder, recurrent episode Mucous polyp of cervix 07/19/05 Other and unspecified anterior pituitary hyperfunction ([facility]) 10/13/05 elevated prolactin level-was normal in 2011 PMH - PAST MEDICAL HISTORY OF sleep apnea PMH - PAST MEDICAL HISTORY OF sleep apnea SVT (supraventricular tachycardia) ([facility]) 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 Type 2 diabetes mellitus without complication, with long-term current use of insulin ([facility]) 12/22/2013 ALLERGIES Lyrica [Pregabalin], Accupril [Quinapril Hcl], Actos [Pioglitazone], Amlodipine, Atenolol, Atorvastatin, Celebrex [Celecoxib], Effexor [Venlafaxine Hcl], Januvia [Sitagliptin], Metoprolol, Mobic [Meloxicam], Prozac [Fluoxetine Hcl], Remeron [Mirtazapine], Risperidone, Seroquel [Quetiapine Fumarate], Trulicity [Dulaglutide], Vancomycin, Vioxx [Rofecoxib], and Wellbutrin [Bupropion Hcl] MEDICATIONS Current Outpatient Medications Medication Sig Blood-Glucose Meter,Continuous (DEXCOM G7 ADVANCED REGISTERED NURSE) [facility] Use to check blood sugar at least four (4) times daily. Blood-Glucose Sensor (DEXCOM G7 SENSOR) jessica Apply new sensor every ten (10) days. hydrOXYzine pamoate (VISTARIL) 25 mg capsule Take 1 capsule by mouth three times a day as needed. ARIPiprazole (ABILIFY) 10 mg tablet Take 1 tablet by mouth once daily. spironolactone (ALDACTONE) 25 mg tablet Take 1 tablet by mouth once daily. tiZANidine (ZANAFLEX) 4 mg tablet Take 1 tablet by mouth every 8 hours as needed (muscle spasms). potassium chloride SR (MICRO-K) 8 mEq cpER Take 1 capsule by mouth daily with breakfast. Blood-Glucose Transmitter (Dtime G6 TRANSMITTER) jessica Apply new transmitter every 90 days. Clean transmitter with an alcohol swab with each sensor change. pravastatin (PRAVACHOL) 20 mg tablet Take 1 tablet by mouth daily at bedtime. furosemide (LASIX) 80 mg tablet Take 1 tablet by mouth once daily. famotidine (PEPCID) 40 mg tablet Take 1 tablet by mouth once daily. Cholecalciferol, Vitamin D3, 125 mcg (5,000 unit) cap Take 1 capsule by mouth once daily. eufxjmyv-oxwz-mzx7-C-gio- bosw (OSTEO BI-FLEX TRIPLE STRENGTH) 750 mg-644 mg- 30 mg-1 mg tab Take 1 tablet by mouth two times a day. DULoxetine (CYMBALTA) 60 mg capsule Take 1 capsule by mouth once daily. topiramate (TOPAMAX) 25 mg tablet Take 1 tablet by mouth two times a day. insulin glargine (LANTUS SOLOSTAR U-100 INSULIN) 100 unit/mL (3 mL) Inject 30 Units subcutaneously every morning. traZODone (DESYREL) 100 mg tablet Take 1 tablet by mouth daily at bedtime. ibuprofen (MOTRIN) 800 mg tablet Take 1 tablet by mouth every 8 hours as needed for pain. Take with food. rOPINIRole (REQUIP) 0.25 mg tablet Take 1 tablet by mouth daily at bedtime. acetaminophen (ARTHRITIS PAIN RELIEF) 650 mg CR tablet Take 2 tablets by mouth every 8 hours as needed for pain. Not in same 8h period as [place] (hydrocodone Tylenol) blood sugar diagnostic (BLOOD GLUCOSE TEST) test strip Test blood sugars up to 4 times daily as directed. Dx: Type 2 DM - Controlled E11.9 Insulin: Yes. Insulin Maljamar, Disposable, (BD ULTRA-FINE MADI PEN NEEDLE) 32 gauge x Use one needle for each dose. 2/day. Lancets Test (more content not included)... Normal [facility] Absolute neutrophil countOrd ered By: Zain Andrade on 04-25-2024 Neutrophils (Bld) [#/Vol] 3.5 10*3/uL 2.0-7.7 [facility] Anion gap in Serum or Plasma Ordered By: Zain Andrade on 04-25-2024 Anion gap [Moles/Vol] 11 mmol/L 5-15 [facility] BUN/creatinine ratioOrdered By: Zain Andrade on 04-25-2024 Urea nitrogen/Creatinine [Mass ratio] 28.2 mg/mg High 10-20 [facility] Basic Metabolic Profile (BMP )on 04-25-2024 BUN/CRE 28.2 RATIO High 10-20 [facility] Comment on above: Performed By: #### L 100.0100, L500.2500, L501.4021 #### [facility] [address] [place], [address] Calcium [Mass/Vol] 9.0 mg/dL Normal 7.6-11.0 [facility] Comment on above: Performed By: #### L 100.0100, L500.2500, L501.4021 #### [facility] [address] [place], [address] Chloride [Moles/Vol] 100 mmol/L Normal 98-108 [facility] Comment on above: Performed By: #### L 100.0100, L500.2500, L501.4021 #### [facility] [address] [place], [address] CO2 [Moles/Vol] 29.6 mmol/L Normal 21.0-32.0 [facility] Comment on above: Performed By: #### L 100.0100, L500.2500, L501.4021 #### [facility] [address] [place], [address] Creatinine [Mass/Vol] 0.98 mg/dL Normal 0.70-1.20 [facility] Comment on above: Performed By: #### L 100.0100, L500.2500, L501.4021 #### [facility] [address] [place], [address] GAP 11 Normal 5-15 [facility] Comment on above: Performed By: #### L 100.0100, L500.2500, L501.4021 #### [facility] [address] [place], [address] GFR/1.73 sq M.predicted among non-blacks MDRD (S/P/Bld) [Vol rate/Area] 65 mL/min/{1.73_m2} Normal >60 [facility] Comment on above: Result Comment: mL/m in/1.73m2 CKD-EPI Creatinine Equation (2020) Performed By: #### L 100.0100, L500.2500, L501.4021 #### [facility] [address] [place], [address] Glucose [Mass/Vol] 176 mg/dL High 70-99 [facility] Comment on above: Performed By: #### L 100.0100, L500.2500, L501.4021 #### [facility] [address] [place], [address] Potassium [Moles/Vol] 4.0 mmol/L Normal 3.3-5.1 [facility] Comment on above: Performed By: #### L 100.0100, L500.2500, L501.4021 #### [facility] [address] [place], [address] Sodium [Moles/Vol] 141 mmol/L Normal 133-145 [facility] Comment on above: Performed By: #### L 100.0100, L500.2500, L501.4021 #### [facility] [address] [place], [address] Urea nitrogen [Mass/Vol] 28 mg/dL High 4-19 [facility] Comment on above: Performed By: #### L 100.0100, L500.2500, L501.4021 #### [facility] [address] [place], [address] Basophil percentageOrdered B y: Zain Andrade on 04-25-2024 Basophils/100 WBC (Bld) 0.2 % 0-1 [facility] CBC W/Diff, Automatedon - Absolute Lymph 1.33 X10 3/uL Normal 0.83-4.51 [facility] Comment on above: Performed By: #### L 100.0100, L500.2500, L501.4021 #### [facility] [address] [place], [address] Absolute Neut 3.5 X10 3/uL Normal 2.0-7.7 [facility] Comment on above: Performed By: #### L 100.0100, L500.2500, L501.4021 #### [facility] [address] [place], [address] Basophils/100 WBC (Bld) 0.2 % Normal 0-1 [facility] Comment on above: Performed By: #### L 100.0100, L500.2500, L501.4021 #### [facility] [address] [place], [address] Eosinophils/100 WBC (Bld) 2.6 % Normal 0-5 [facility] Comment on above: Performed By: #### L 100.0100, L500.2500, L501.4021 #### [facility] [address] [place], [address] Erythrocyte distribution width (RBC) [Ratio] 12.7 % Normal 11.6-14.6 [facility] Comment on above: Performed By: #### L 100.0100, L500.2500, L501.4021 #### [facility] [address] [place], [address] Hematocrit (Bld) [Volume fraction] 35.2 % Low 37-47 [facility] Comment on above: Performed By: #### L 100.0100, L500.2500, L501.4021 #### [facility] [address] [place], [address] Hemoglobin (Bld) [Mass/Vol] 12.0 g/dL Normal 12.0-15.0 [facility] Comment on above: Performed By: #### L 100.0100, L500.2500, L501.4021 #### [facility] [address] [place], [address] IG% 0.200 Normal 0.0-0.9 [facility] Comment on above: Result Comment: IG% - Immature Granulocytes (promyelocytes, myelocytes and metamyelocytes) > 1% indicates that a LEFT SHIFT is Present. Performed By: #### L 100.0100, L500.2500, L501.4021 #### [facility] [address] [place], [address] Lymphocytes/100 WBC (Bld) 24.7 % Normal 19-41 [facility] Comment on above: Performed By: #### L 100.0100, L500.2500, L501.4021 #### [facility] [address] [place], [address] MCH (RBC) [Entitic mass] 30.2 pg Normal 27.0-32.0 [facility] Comment on above: Performed By: #### L 100.0100, L500.2500, L501.4021 #### [facility] [address] [place], [address] MCHC (RBC) [Mass/Vol] 34.1 g/dL Normal 32-36 [facility] Comment on above: Performed By: #### L 100.0100, L500.2500, L501.4021 #### [facility] [address] [place], [address] MCV (RBC) [Entitic vol] 88.4 fL Normal 81-99 [facility] Comment on above: Performed By: #### L 100.0100, L500.2500, L501.4021 #### [facility] [address] [place], [address] Monocytes/100 WBC (Bld) 6.7 % Normal 0-10 [facility] Comment on above: Performed By: #### L 100.0100, L500.2500, L501.4021 #### [facility] [address] [place], [address] Neutrophils/100 WBC (Bld) 65.6 % Normal 47-70 [facility] Comment on above: Performed By: #### L 100.0100, L500.2500, L501.4021 #### [facility] [address] [place], [address] Nucleated RBC (Bld) [#/Vol] 0 10*3/uL Normal 0-5 [facility] Comment on above: Performed By: #### L 100.0100, L500.2500, L501.4021 #### [facility] [address] [place], [address] Platelet mean volume (Bld) [Entitic vol] 10.0 fL Normal 6.2-12.0 [facility] Comment on above: Performed By: #### L 100.0100, L500.2500, L501.4021 #### [facility] [address] [place], [address] Platelets (Bld) [#/Vol] 212 10*3/uL Normal 150-450 [facility] Comment on above: Performed By: #### L 100.0100, L500.2500, L501.4021 #### [facility] [address] [place], [address] RBC (Bld) [#/Vol] 3.98 10*6/uL Low 4.2-5.4 [facility] Comment on above: Performed By: #### L 100.0100, L500.2500, L501.4021 #### [facility] [address] [place], [address] RDW SD 40.4 fl Normal 35.1-43.9 [facility] Comment on above: Performed By: #### L 100.0100, L500.2500, L501.4021 #### [facility] [address] [place], [address] WBC (Bld) [#/Vol] 5.4 10*3/uL Normal 4.4-11.0 [facility] Comment on above: Performed By: #### L 100.0100, L500.2500, L501.4021 #### [facility] [address] [place], [address] [facility] Telephone (FAMPWS) -- WILTON KHAN V ([id number]) 1960 F Date Time Provider Department 04/25/24 [facility] During your visit today, we recorded the following information about you: La Babb, RN 04/25/2024 10:10 AM Signed Pt's sister Adela calling in to cancel pt's appt for next Sunday the . Adela states pt had chest pain and is in the ER. Allergies As of Date: 04/25/2024 Noted Allergy Reaction LYRICA (PREGABALIN) 08/05/2012 10 - Anaphylaxis Comments: Not sure if accurate. Can take gabapentin. Patient is unsure of reaction. ACCUPRIL (QUINAPRIL HCL) 08/12/2005 5 - Intolerance Comments: dizziness ACTOS (PIOGLITAZONE) 05/14/2020 7 - Swelling AMLODIPINE 04/24/2008 7 - Swelling Comments: Leg edema ATENOLOL 09/29/2010 7 - Swelling ATORVASTATIN 11/01/2017 5 - Intolerance Comments: Muscle cramps and weakness CELEBREX (CELECOXIB) 11/25/2020 7 - Swelling EFFEXOR (VENLAFAXINE HCL) 09/22/2005 Comments: swelling high blood pressure JANUVIA (SITAGLIPTIN) 09/21/2011 8 - GI Upset 14 - Other: See Comments Comments: Patient states she couldn't eat METOPROLOL 09/21/2009 7 - Swelling MOBIC (MELOXICAM) 08/12/2005 8 - GI Upset PROZAC (FLUOXETINE HCL) 08/12/2005 5 - Intolerance Comments: tremor REMERON (MIRTAZAPINE) 11/25/2020 2 - Rash RISPERIDONE 12/22/2009 1 - Mental Status Change SEROQUEL (QUETIAPINE FUMARATE) 10/05/2006 Comments: hypertension,swelling TRULICITY (DULAGLUTIDE) 05/10/2023 5 - Intolerance Comments: Caused nausea and cramps VANCOMYCIN 08/10/2017 9 - Itching 14 - Other: See Comments 2 - Rash Comments: red all over Other reaction(s): Other: See Comments red all over VIOXX (ROFECOXIB) 08/12/2005 8 - GI Upset WELLBUTRIN (BUPROPION HCL) 08/12/2005 5 - Intolerance Comments: nightmares Date Reviewed: 04/14/2024 Reviewed by: Jessenia Kirkpatrick LPN - Fully Assessed Reason for Visit: Patient Update [1234] Prescriptions as of 04/25/2024 - Blood-Glucose Meter,Continuous (DEXCOM G7 ADVANCED REGISTERED NURSE) [facility] Use to check blood sugar at least four (4) times daily. - Blood-Glucose Sensor (DEXCOM G7 SENSOR) jessica Apply new sensor every ten (10) days. - hydrOXYzine pamoate (VISTARIL) 25 mg capsule Take 1 capsule by mouth three times a day as needed. - ARIPiprazole (ABILIFY) 10 mg tablet Take 1 tablet by mouth once daily. - spironolactone (ALDACTONE) 25 mg tablet Take 1 tablet by mouth once daily. - tiZANidine (ZANAFLEX) 4 mg tablet Take 1 tablet by mouth every 8 hours as needed (muscle spasms). - HYDROcodone-acetaminophen (NORCO) 5-325 mg per tablet Take 1 tablet by mouth two times a day as needed for pain for up to 30 days. - potassium chloride SR (MICRO-K) 8 mEq cpER Take 1 capsule by mouth daily with breakfast. - Blood-Glucose Transmitter (Dtime G6 TRANSMITTER) jessica Apply new transmitter every 90 days. Clean transmitter with an alcohol swab with each sensor change. - pravastatin (PRAVACHOL) 20 mg tablet Take 1 tablet by mouth daily at bedtime. - furosemide (LASIX) 80 mg tablet Take 1 tablet by mouth once daily. - famotidine (PEPCID) 40 mg tablet Take 1 tablet by mouth once daily. - Cholecalciferol, Vitamin D3, 125 mcg (5,000 unit) cap Take 1 capsule by mouth once daily. - icfggcro-giic-eai0-C-gio- bosw (OSTEO BI-FLEX TRIPLE STRENGTH) 750 mg-644 mg- 30 mg-1 mg tab Take 1 tablet by mouth two times a day. - DULoxetine (CYMBALTA) 60 mg capsule Take 1 capsule by mouth once daily. - topiramate (TOPAMAX) 25 mg tablet Take 1 tablet by mouth two times a day. - insulin glargine (LANTUS SOLOSTAR U-100 INSULIN) 100 unit/mL (3 mL) Inject 30 Units subcutaneously every morning. - traZODone (DESYREL) 100 mg tablet Take 1 tablet by mouth daily at bedtime. - gabapentin (NEURONTIN) 600 mg tablet Take 1 tablet by mouth three times a day for 180 days. - ibuprofen (MOTRIN) 800 mg tablet Take 1 tablet by mouth every 8 hours as needed for pain. Take with food. - rOPINIRole (REQUIP) 0.25 mg tablet Take 1 tablet by mouth daily at bedtime. - acetaminophen (ARTHRITIS PAIN RELIEF) 650 mg CR tablet Take 2 tablets by mouth every 8 hours as needed for pain. Not in same 8h period as [place] (hydrocodone Tylenol) - blood sugar diagnostic (BLOOD GLUCOSE TEST) test strip Test blood sugars up to 4 times daily as directed. Dx: Type 2 DM - Controlled E11.9 Insulin: Yes. - Insulin Maljamar, Disposable, (BD ULTRA-FINE MADI PEN NEEDLE) 32 gauge x Use one needle for each dose. 2/day. - Lancets Test blood sugar(s) up to 4 times daily. Dx: Type 2 DM - Controlled E11.9 Insulin: Yes - Blood-Glucose Meter monitoring kit Glucose Meter of Choice - Kit - Dx: Type 2 DM - Controlled E11.9 - Disposable Gloves (DISPOSABLE LATEX-FREE GLOVES) misc 1 Box once every month. - Adhesive Bandage ([place] [employer]) 6 X 6 bndg Apply to affected area once daily. - M (more content not included)... Normal [facility] Carbon dioxide, total [Moles /volume] in Central venous bloodOrdered By: Zain Andrade on 04-25-2024 CO2 [Moles/Vol] 29.6 mmol/L 21.0-32.0 [facility] Chest 1 View (Portable)on Chest 1 View (Portable) [facility] Imaging Services [address] [place] [address] Chest 1 View (Portable) MR#: [id number] Acct: [id number] Name: WILTON KHAN V Rep #: [id number] : 1960 F 64 From: Mike Johnson MD PCP: ANA Melvin Status: REG ER Study: Chest 1 View (Portable) Date of Exam: 04/25/24 Exam# [id number] Ordering Dr: Zain Andrade DO PROCEDURE: CHEST 1 VIEW (PORTABLE) REASON FOR EXAM: Chest pain TECHNIQUE: Single portable AP view of the chest was obtained. COMPARISON: 09/14/2020 FINDINGS: Heart: Unremarkable. Mediastinum: Unremarkable. Lungs/pleura: No focal consolidation. No sizeable pleural effusion or visible pneumothorax. Granuloma on the left. Bones: Degenerative changes of the shoulders. Lines and support devices: None. RAD/Chest 1 View (Portable) IMPRESSION: 1. No visible acute cardiopulmonary findings. 2. Additional description as above. Reading Location: [facility] CC: WHITE SOURER Joi Markham; Dr. Zain Andrade DO Animation Director: Signed Normal [facility] Chloride assayOrdered By: Erick Andrade on 04-25-2024 Chloride [Moles/Vol] 100 mmol/L 98-108 [facility] Emergency Department Summary on 04-25-2024 Emergency Department Summary [facility] Medical Records Department [address] [place] [address] Emergency Department Summary 04/25/24 MR#: [id number] Acct: [id number] Name: WILTON KHAN V Rep #: [id number] : 1960 64 From: Zain Andrade DO PCP: Joi Markham, WHITE SOURER Status:REG ER Location: ED HPI History of Present Illness Chief Complaint: Chest Pain Informant: patient and EMS Narrative Narrative: 64-year-old female presenting to the emergency room with a chief complaint of chest pain. Patient states that on Sunday she began to experience a left pressure with sharpness when she got up and moved around. She states a long as she is at rest she feels fine. This is been persistent until this morning when she then felt it into her throat and her back. She denies any nausea vomiting she denies any cough shortness of breath. She states she has had prior heart catheter been negative. She does have a history of COPD diabetes obesity hypertension obstructive sleep apnea. [facility] Medical History COVID-19 Vitamin D deficiency Hyperparathyroidism Immobility Peripheral neuropathy Mixed hyperlipidemia COPD (chronic obstructive pulmonary disease) History of DVT (deep vein thrombosis) SVT (supraventricular tachycardia) Essential hypertension JEREMÍAS treated with BiPAP Pulmonary hypertension Exertional dyspnea Chronic back pain Diabetes mellitus, type II Heart failure Anxiety and depression Sepsis Lumbosacral neuritis Esophageal reflux Morbid obesity Home Medications ???Medication ???Instructions ???Recorded ???Last Taken ???Type duloxetine 60 mg capsule,delayed 60 mg PO DAILY depression 12/02/14 03/02/22 History release aripiprazole 10 mg tablet 10 mg PO QHS Depression 10/21/17 0 03/01/22 History pravastatin 20 mg tablet 20 mg PO QHS cholesterol 04/09/19 03/01/22 History famotidine 40 mg tablet 40 mg PO DAILY stomach 11/08/19 History insulin glargine 100 unit/mL (3 35 unit SQ DAILY blood sugar 11/0703/02/22 History mL) subcutaneous pen hydrocodone-acetaminophen 5-325mg 1 tab PO BID PRN Pain 06/29/20 History 5mg-325mg potassium chloride 10 mEq 10 meq PO DAILY supplement 1 03/02/22 History capsule,extended release acetaminophen 650 mg 650 mg PO TID PRN Pain 09/14/20 History tablet,extended release spironolactone 50 mg tablet 25 mg PO DAILY fluid 09/14/2002/19 History trazodone 100 mg tablet 100 mg PO QHS SLEEP 09/14/2003/01 History cholecalciferol (vitamin D3) 125 125 mcg PO DAILY 03/02/22 03/02/22 History mcg (5,000 unit) tablet (Vitamin D3) furosemide 80 mg tablet 80 mg PO DAILY FLUID 03/02/2202/19 History gabapentin 300 mg capsule 300 mg PO Q12H PAIN 03/02/2203/01 History ibuprofen 200 mg tablet 800 mg PO Q8H PRN Fever 03/02/22 0 03/02/22 07:45 History albuterol sulfate 90 mcg/actuation 2 inh inhalation Q4H PRN shortne ss 05/17/23 Unknown History aerosol inhaler of breath or wheezing ascorbic acid (vitamin C) 1,500 mg 1,500 mg PO DAILY 05/17/23 Unkno wn History tablet,extended release glucosamine 750 cb-[id number]-iwb 1 tab PO BID 05/17/23 Unknown Hi story no1 644 mg-C 30 mg-gio 1 mg tablet (Osteo Bi-Flex Triple Strength) hydroxyzine pamoate 25 mg capsule 25 mg PO Q8H PRN anxiety 05/17/23 Unknown History potassium chloride 8 mEq 8 meq PO DAILY 05/17/23 Unknown Hi story capsule,extended release ropinirole 0.25 mg tablet 0.25 mg PO QHS 05/17/23 Unknown Hi story tizanidine 4 mg capsule 4 mg PO TID PRN muscle spasticity 05/17/23 Unknown History Allergy/AdvReac Type Severity Reaction Status Date / Time vancomycin Allergy Rash Verified 04/25/24 09:31 atorvastatin AdvReac Severe myalgias Verified 04/25/24 09:31 amlodipine AdvReac Unknown Verified 04/25/24 09:31 atenolol AdvReac Unknown Verified 04/25/24 09:31 bupropion HCl (From AdvReac Unknown Verified 04/25/24 09:31 Wellbutrin) fluoxetine HCl (From Prozac) AdvReac Unknown Verified 04/25/24 09:31 meloxicam (From Mobic) AdvReac Unknown Verified 04/25/24 09:31 metoprolol AdvReac Unknown Verified 04/25/24 09:31 pregabalin (From Lyrica) AdvReac Unknown Verified 04/25/24 09:31 quetiapine fumarate (From AdvReac Unknown Verified 04/25/24 09:31 Seroquel) quinapril HCl (From Accupril) AdvReac Unknown Verified 04/25/24 09:31 risperidone AdvReac Unknown Verified 04/25/24 09:31 rofecoxib (From Vioxx) AdvReac Unknown Verified 04/25/24 09:31 sitagliptin phosphate (From AdvReac Unknown Verified 04/25/24 09:31 Januvia) venlafaxine HCl (From AdvReac Unknown Verified 04/25/24 09:31 Effexor) Family History Mother Hypertension CV (more content not included)... Normal [facility] Eosinophil percentageOrdered By: Zain Andrade on 04-25-2024 Eosinophils/100 WBC (Bld) 2.6 % 0-5 [facility] Erythrocyte distribution wid th ratioOrdered By: Zain Andrade on 04-25-2024 Erythrocyte distribution width (RBC) [Ratio] 12.7 % 11.6-14.6 [facility] Erythrocyte distribution wid th standard deviationOrdered By: Zain Andrade on 04-25-2024 Erythrocyte distribution width (RBC) [Entitic vol] 40.4 fL 35.1-43.9 [facility] GFR/1.73 sq M.predicted jad g non-blacks MDRD (S/P/Bld) [Vol rate/Area]Ordered By: Zain Andrade on 04-25-2024 Estimated GFR (MDRD) Non-Af Amer 65 >60 [facility] Comment on above: mL/min/1.73m2 CKD-EP I Creatinine Equation (2020) Hematocrit Auto (Bld) [Volum e fraction]Ordered By: Zain Andrade on 04-25-2024 Hematocrit (Bld) [Volume fraction] 35.2 % Low 37-47 [facility] Hemoglobin measurementOrdere d By: Zain Andrade on 04-25-2024 Hemoglobin (Bld) [Mass/Vol] 12.0 g/dL 12.0-15.0 [facility] Immature granulocytes/100 WB C Auto (Bld)Ordered By: Zain Andrade on 04-25-2024 Immature granulocytes/100 WBC (Bld) 0.200 % 0.0-0.9 [facility] Comment on above: IG% - Immature Granu locytes (promyelocytes, myelocytes and metamyelocytes) > 1% indicates that a LEFT SHIFT is Present. L499.0042on 04-25-2024 Trop T High Sen 13 ng/L Normal <=14 [facility] Comment on above: Performed By: #### L 499.0042 #### [facility] [address] [place], [address] L499.0043on 04-25-2024 Trop T High Sen Normal <=14 [facility] Comment on above: Result Comment: DISC HARGED Performed By: #### L 499.0043 #### [facility] [address] [place], [address] L501.4021on 04-25-2024 Trop T High Sen 13 ng/L Normal <=14 [facility] Comment on above: Performed By: #### L 100.0100, L500.2500, L501.4021 #### [facility] [address] [place], [address] Lymphocytes Auto (Unsp spec) [#/Vol]Ordered By: Zain Andrade on 04-25-2024 Lymphocytes (Bld) [#/Vol] 1.33 10*3/uL 0.83-4.51 [facility] Lymphocytes/100 WBC Auto (Un sp spec)Ordered By: Zain Andrade on 04-25-2024 Lymphocytes/100 WBC (Bld) 24.7 % 19-41 [facility] MCV (mean corpuscular volume ) determinationOrdered By: Zain Andrade on 04-25-2024 MCV (RBC) [Entitic vol] 88.4 fL 81-99 [facility] Mean corpuscular hemoglobin (MCH) determinationOrdered By: Zain Andrade on 04-25-2024 MCH (RBC) [Entitic mass] 30.2 pg 27.0-32.0 [facility] Mean corpuscular hemoglobin concentration (MCHC) determinationOrdered By: Zain Andrade on 04-25-2024 MCHC (RBC) [Mass/Vol] 34.1 g/dL 32-36 [facility] Mean platelet volume determi nationOrdered By: Zain Andrade on 04-25-2024 Platelet mean volume (Bld) [Entitic vol] 10.0 fL 6.2-12.0 [facility] Monocyte percentageOrdered B y: Zain Andrade on 04-25-2024 Monocytes/100 WBC (Bld) 6.7 % 0-10 [facility] Neutrophil percentageOrdered By: Zain Andrade on 04-25-2024 Neutrophils/100 WBC (Bld) 65.6 % 47-70 [facility] No Panel InformationOrdered By: Zain Andrade on 04-25-2024 Troponin T High Sensitivity 13 ng/L <14 [facility] Nucleated red blood cell per centageOrdered By: Zain Andrade on 04-25-2024 Nucleated RBC/100 WBC (Bld) [Ratio] 0 % 0-5 [facility] Platelet countOrdered By: Erick Andrade on 04-25-2024 Platelets (Bld) [#/Vol] 212 10*3/uL 150-450 [facility] Potassium (Unsp spec) [Mass/ Vol]Ordered By: Zain Andrade on 04-25-2024 Potassium [Moles/Vol] 4.0 mmol/L 3.3-5.1 [facility] RBC Auto (Bld) [#/Vol]Ordere d By: Zain Andrade on 04-25-2024 RBC (Bld) [#/Vol] 3.98 10*6/uL Low 4.2-5.4 [facility] Serum creatinine measurement (mass/volume)Ordered By: Zain Andrade on 04-25-2024 Creatinine [Mass/Vol] 0.98 mg/dL 0.70-1.20 [facility] Serum glucose measurement (m ass/volume)Ordered By: Zain Andrade on 04-25-2024 Glucose [Mass/Vol] 176 mg/dL High 70-99 [facility] Serum or plasma calcium fabiola urement (mass/volume)Ordered By: Zain Andrade on 04-25-2024 Calcium [Mass/Vol] 9.0 mg/dL 7.6-11.0 [facility] Serum or plasma urea nitroge n measurement (mass/volume)Ordered By: Zain Andrade on 04-25-2024 Urea nitrogen [Mass/Vol] 28 mg/dL High 4-19 [facility] Sodium levelOrdered By: Ozzy Andrade on 04-25-2024 Sodium [Moles/Vol] 141 mmol/L 133-145 [facility] Troponin T.cardiac High sens itivity method [Mass/Vol]Ordered By: Zain Andrade on 04-25-2024 Troponin T High Sensitivity 2 Hour 13 ng/L <14 [facility] White blood cell (WBC) count Ordered By: Zain Andrade on 04-25-2024 WBC (Bld) [#/Vol] 5.4 10*3/uL 4.4-11.0 [facility] CNPNon 04-24-2024 CNPN Telephone (FAMWS) -- WILTON KHAN V ([id number]) 1960 F Date Time Provider Department 04/24/24 [facility] During your visit today, we recorded the following information about you: Sanjay Rondon, RN 04/24/2024 12:53 PM Signed Pt phoned stating she has to cancel appt for tomorrow, and reschedule for next , due to transportation. Reports she was unable to get transportation tomorrow due to company unable to find transport to accommodate her motorized wheel chair. Asking if pcp if you know of any other company's that provide transportation for people in a motorized wheel chair? States she has a lot of trouble getting transportation. Please advise patient. Kim Carpenter, [place] 04/24/2024 1:08 PM Signed Patient and Sw spoke regarding transportation. Patient reports that she spoke with her insurance and they need 2 days in advance to bring her to appt. Sw noted that she could check with [facility] Transportation. Not sure if they will be able to help with ride to appt with Shayan Davidson due to typically transporting to their [facility] sites and providers that have privileges through [facility]. The only other idea is [facility] as they have wheelchair vans. They typically also need 2 days in advance as well. Patient reports that she is going to call [facility] transport to see what they say about helping with transportation to medical appt. Allergies As of Date: 04/24/2024 Noted Allergy Reaction LYRICA (PREGABALIN) 08/05/2012 10 - Anaphylaxis Comments: Not sure if accurate. Can take gabapentin. Patient is unsure of reaction. ACCUPRIL (QUINAPRIL HCL) 08/12/2005 5 - Intolerance Comments: dizziness ACTOS (PIOGLITAZONE) 05/14/2020 7 - Swelling AMLODIPINE 04/24/2008 7 - Swelling Comments: Leg edema ATENOLOL 09/29/2010 7 - Swelling ATORVASTATIN 11/01/2017 5 - Intolerance Comments: Muscle cramps and weakness CELEBREX (CELECOXIB) 11/25/2020 7 - Swelling EFFEXOR (VENLAFAXINE HCL) 09/22/2005 Comments: swelling high blood pressure JANUVIA (SITAGLIPTIN) 09/21/2011 8 - GI Upset 14 - Other: See Comments Comments: Patient states she couldn't eat METOPROLOL 09/21/2009 7 - Swelling MOBIC (MELOXICAM) 08/12/2005 8 - GI Upset PROZAC (FLUOXETINE HCL) 08/12/2005 5 - Intolerance Comments: tremor REMERON (MIRTAZAPINE) 11/25/2020 2 - Rash RISPERIDONE 12/22/2009 1 - Mental Status Change SEROQUEL (QUETIAPINE FUMARATE) 10/05/2006 Comments: hypertension,swelling TRULICITY (DULAGLUTIDE) 05/10/2023 5 - Intolerance Comments: Caused nausea and cramps VANCOMYCIN 08/10/2017 9 - Itching 14 - Other: See Comments 2 - Rash Comments: red all over Other reaction(s): Other: See Comments red all over VIOXX (ROFECOXIB) 08/12/2005 8 - GI Upset WELLBUTRIN (BUPROPION HCL) 08/12/2005 5 - Intolerance Comments: nightmares Date Reviewed: 04/14/2024 Reviewed by: Jessenia Kirkpatrick LPN - Fully Assessed Reason for Visit: Patient Update [1234] Prescriptions as of 04/25/2024 - Blood-Glucose Meter,Continuous (DEXCOM G7 ADVANCED REGISTERED NURSE) misc Use to check blood sugar at least four (4) times daily. - Blood-Glucose Sensor (DEXCOM G7 SENSOR) jessica Apply new sensor every ten (10) days. - hydrOXYzine pamoate (VISTARIL) 25 mg capsule Take 1 capsule by mouth three times a day as needed. - ARIPiprazole (ABILIFY) 10 mg tablet Take 1 tablet by mouth once daily. - spironolactone (ALDACTONE) 25 mg tablet Take 1 tablet by mouth once daily. - tiZANidine (ZANAFLEX) 4 mg tablet Take 1 tablet by mouth every 8 hours as needed (muscle spasms). - HYDROcodone-acetaminophen (NORCO) 5-325 mg per tablet Take 1 tablet by mouth two times a day as needed for pain for up to 30 days. - potassium chloride SR (MICRO-K) 8 mEq cpER Take 1 capsule by mouth daily with breakfast. - Blood-Glucose Transmitter (DEXCOM G6 TRANSMITTER) jessica Apply new transmitter every 90 days. Clean transmitter with an alcohol swab with each sensor change. - pravastatin (PRAVACHOL) 20 mg tablet Take 1 tablet by mouth daily at bedtime. - furosemide (LASIX) 80 mg tablet Take 1 tablet by mouth once daily. - famotidine (PEPCID) 40 mg tablet Take 1 tablet by mouth once daily. - Cholecalciferol, Vitamin D3, 125 mcg (5,000 unit) cap Take 1 capsule by mouth once daily. - zfwqitvx-jayp-lld6-C-gio- bosw (OSTEO BI-FLEX TRIPLE STRENGTH) 750 mg-644 mg- 30 mg-1 mg tab Take 1 tablet by mouth two times a day. - DULoxetine (CYMBALTA) 60 mg capsule Take 1 capsule by mouth once daily. - topiramate (TOPAMAX) 25 mg tablet Take 1 tablet by mouth two times a day. - insulin glargine (LANTUS SOLOSTAR U-100 INSULIN) 100 unit/mL (3 mL) Inject 30 Units subcutaneously every morning. - traZODone (DESYREL) 100 mg tablet Take 1 tablet by mouth daily at bedtime. - gabapentin (NEURONTIN) 600 mg tablet Take 1 tablet by mouth three times a day for 180 days. - ibuprofen (MOTRIN) 800 mg tablet Take (more content not included)... [facility] -- WILTON KHAN V ([id number]) 1960 F Date Time Provider Department 04/24/24 JOI MARKHAM During your visit today, we recorded the following information about you: La Babb, LOLY 04/24/2024 12:14 PM Signed Pt calling in with symptoms of headache and dizzinesss. Pt with hx of sinus infection and treated on 04/14/24. Just finished antibiotic. Pt also states that Sunday and Sunday she had some episodes of sharp stabbing pains behind her left breast. Lasted around 2-3 mins. One maybe lasted about 10 mins. Denies any chest pain at all today and denies any difficulty breathing or SOB. Pt given strict instructions if the chest pain returns, she is to call 911 immediately. Pt verbalizes understanding. Otherwise protocols state to see provider within 24 hours. Appt given with Lety Markham for 1020 am tomorrow for 40 mins. Reason for Disposition [1] MODERATE dizziness (e.g., interferes with normal activities) AND [2] has NOT been evaluated by doctor (or MATERNITY NURSE/PA) for this (Exception: Dizziness caused by heat exposure, sudden standing, or poor fluid intake.) [1] MODERATE headache (e.g., interferes with normal activities) AND [2] present > 24 hours AND [3] unexplained (Exceptions: Pain medicines not tried, typical migraine, or headache part of viral illness.) [1] Chest pain lasts < 5 minutes AND [2] NO chest pain or cardiac symptoms (e.g., breathing difficulty, sweating) now (Exception: Chest pains that last only a few seconds.) Answer Assessment - Initial Assessment Questions 1. LOCATION: Forehead, bilateral temples and across her cheeks 2. ONSET: couple of weeks ago 3. PATTERN: constant 4. SEVERITY: moderate 5/10 with Tylenol may go to a 2-3/10 - MILD (1-3): Doesn't interfere with normal activities. - MODERATE (4-7): Interferes with normal activities or awakens from sleep. - SEVERE (8-10): Excruciating pain, unable to do any normal activities. - WORST HEADACHE (10+): 'Worst headache' of life. 5. RECURRENT SYMPTOM: denies 6. CAUSE: was dx with a sinus infection recently 7. MIGRAINE: denies 8. HEAD INJURY: denies 9. OTHER SYMPTOMS: denies fever, stiff neck, sore throat, cold symptoms, runny or stuffy nose or cough. Does have some dizziness and eye pain but denies visual disturbances. 10. :n/a Answer Assessment - Initial Assessment Questions 1. DESCRIPTION: dizziness 2. LIGHTHEADED: c/o feeling somewhat faint, woozy, and weak upon standing up 3. VERTIGO: denies 4. SEVERITY: moderate - MILD: Feels slightly dizzy, but walking normally. - MODERATE: Feels unsteady when walking, but not falling; interferes with normal activities (e.g., school, work). - SEVERE: Unable to walk without falling, or requires assistance to walk without falling; feels like passing out now. 5. ONSET: This past Sunday 6. AGGRAVATING FACTORS: standing or change in head/body position 7. HEART RATE: Pt states someone from the[place] was just there at her house and took BP which was 132/78 and pulse in the 60's 8. CAUSE: unsure unless from recent sinus infection 9. RECURRENT SYMPTOM: denies 10. OTHER SYMPTOMS: headache 11. : n/a Answer Assessment - Initial Assessment Questions 1. LOCATION: behind left breast Sunday and Sunday-denies today 2. RADIATION: denies 3. ONSET: see above 4. PATTERN: intermittent 5. DURATION: 10 mins was longest, couple mins here and there 6. SEVERITY: When she had it 10 - MILD (1-3): Doesn't interfere with normal activities. - MODERATE (4-7): Interferes with normal activities or awakens from sleep. - SEVERE (8-10): Excruciating pain, unable to do any normal activities. 7. CARDIAC RISK FACTORS: Pt with h/o diabetes, high blood pressure, high cholesterol, smoking history, and very strong family history of heart disease 8. PULMONARY RISK FACTORS: COPD 9. CAUSE: unsure 10. OTHER SYMPTOMS: headache and dizziness. Denies having any nausea, vomiting, sweating, fever, difficulty breathing, cough 11. : n/a Protocols used: Xinwhczv-SXETY-NU, Dizziness - Tqdlwoxdrybkpoh-NCQLW-FZ, Chest Ltwf-YBDHO-HR Allergies As of Date: 04/24/2024 Noted Allergy Reaction LYRICA (PREGABALIN) 08/05/2012 10 - Anaphylaxis Comments: Not sure if accurate. Can take gabapentin. Patient is unsure of reaction. ACCUPRIL (QUINAPRIL HCL) 08/12/2005 5 - Intolerance Comments: dizziness ACTOS (PIOGLITAZONE) 05/14/2020 7 - Swelling AMLODIPINE 04/24/2008 7 - Swelling Comments: Leg edema ATENOLOL 09/29/2010 7 - Swelling ATORVASTATIN 11/01/2017 5 - Intolerance Comments: Muscle cramps and weakness CELEBREX (CELECOXIB) 11/25/2020 7 - Swelling EFFEXOR (VENLAFAXINE HCL) 09/22/2005 Comments: swelling high blood pressure JANUVIA (SITAGLIPTIN) 09/21/2011 8 - GI Upset 14 - Other: See Comments Comments: Patient states she couldn't eat MET (more content not included)... Normal [facility] CNOVon 04-14-2024 CNOV Office Visit (UCWSTR ) -- WILTON KHAN V ([id number]) 1960 F Date Time Provider Department 04/14/24 3:15 PM ANTO OROZCO [facility] During your visit today, we recorded the following information about you: Temperature Pulse Respiration Blood pressure 98.4 degrees 80/minute 18/minute 132/82 Weight 164.7 kg Nato Orozco APRN.[facility] 04/14/2024 3:36 PM Signed CC: Patient presents with: sinus pain and pressure: X [address], cough and ARAIZA HPI: Wilton Khan is a 64 year old female who presents to the office with complaint of head congestion and sinus symptoms for 2 weeks. Symptoms are staying the same. Associated symptoms includes nasal congestion and facial pain/pressure. Denies wheezing, dyspnea, nausea, vomiting , and diarrhea. Treatments tried include nothing so far. with no relief of symptoms. Sick contacts: unknown. History of asthma, frequent episodes of bronchitis, chronic bronchitis, bronchiectasis or COPD: No Smoker: No Seasonal/environmental allergies: No The ROS is otherwise negative. The patient's pmh, medications, allergies, and past visits are reviewed. PHYSICAL EXAM: BP 132/82 Pulse 80 Temp 36.9 ?C (98.4 ?F) (Tympanic) Resp 18 Wt (!) 164.7 kg (363 lb) LMP 12/11/2008 SpO2 95% BMI 73.32 kg/m? General appearance: alert, cooperative, pleasant, in no acute distress Head: Normocephalic, maxillary and frontal sinus pressure. Eyes: EOM's intact, conjunctiva pink and moist, no icterus, sclera white, non-injected Ears: Right ear: External ear/canal- Normal, TM - clear with good landmarks. Left ear: External ear/canal- Normal, TM - clear with good landmarks Oropharynx:moist without lesions, No erythema, exudates or tonsillar hypertrophy. Heart: Negative. RRR without obvious murmur, gallop, or rubs. No ectopy. Lungs: clear to auscultation, without rales or wheeze, good air exchange PAST MEDICAL HISTORY Diagnosis Date Abnormal glandular Papanicolaou smear of cervix 05/30/05 ABNL GLANDULAR PAP SMEAR CERVIX Acute gastritis without mention of hemorrhage Anxiety state, unspecified Arrhythmia Chronic cholecystitis Chronic obstructive pulmonary disease (COPD) ([facility]) Congestive heart failure ([facility]) 10/03/2011 Diabetes ([facility]) diabetes II 2010 Diaphragmatic hernia without mention of obstruction or gangrene Dysthymic disorder Depression (non-psychotic) Esophageal reflux Essential hypertension, benign Generalized OA Hyperprolactinemia ([facility]) 10/13/2005 Localized osteoarthrosis not specified whether primary or secondary, lower leg Major depressive disorder, recurrent episode Mucous polyp of cervix 07/19/05 Other and unspecified anterior pituitary hyperfunction ([facility]) 10/13/05 elevated prolactin level-was normal in 2011 PMH - PAST MEDICAL HISTORY OF sleep apnea PMH - PAST MEDICAL HISTORY OF sleep apnea SVT (supraventricular tachycardia) ([facility]) 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 Type 2 diabetes mellitus without complication, with long-term current use of insulin ([facility]) 12/22/2013 PAST SURGICAL HISTORY Procedure Laterality Date BIOPSY CERVIX SINGLE/MULT/EXCISION OF LESION SPX 07/19/2005 endocervical polyp COLONOSCOPY FLX DX W/COLLJ SPEC WHEN PFRMD 01/09/2012 Colonoscopy repeat 10 years COLPOSCOPY CERVIX UPPER/ADJACENT VAGINA Colposcopy EGD TRANSORAL BIOPSY SINGLE/MULTIPLE 01/16/2007 ESOPHAGOGASTRODUODENOSCOPY TRANSORAL DIAGNOSTIC 01/09/2012 EGD HERNIA REPAIR HX 11/2015 ventral HYSTEROSCOPY DX 12/17/2014 [facility] LAPS SURG CHOLECYSTECTOMY W/CHOLANGIOGRAPHY 05/15/2008 PARATHYROID ALLERGIES Lyrica [Pregabalin], Accupril [Quinapril Hcl], Actos [Pioglitazone], Amlodipine, Atenolol, Atorvastatin, Celebrex [Celecoxib], Effexor [Venlafaxine Hcl], Januvia [Sitagliptin], Metoprolol, Mobic [Meloxicam], Prozac [Fluoxetine Hcl], Remeron [Mirtazapine], Risperidone, Seroquel [Quetiapine Fumarate], Trulicity [Dulaglutide], Vancomycin, Vioxx [Rofecoxib], and Wellbutrin [Bupropion Hcl] MEDICATIONS doxycycline (VIBRA-TABS) 100 mg tablet Take 1 tablet by mouth two times a day for 7 days. Blood-Glucose Meter,Continuous (DEXCOM G7 ADVANCED REGISTERED NURSE) misc Use to check blood sugar at least four (4) times daily. Blood-Glucose Sensor (DEXCOM G7 SENSOR) jessica Apply new sensor every ten (10) days. hydrOXYzine pamoate (VISTARIL) 25 mg capsule Take 1 capsule by mouth three times a day as needed. ARIPiprazole (ABILIFY) 10 mg tablet Take 1 tablet by mouth once daily. spironolactone (ALDACTONE) 25 mg tablet Take 1 tablet by mouth once daily. tiZANidine (ZANAFLEX) 4 mg tablet Take 1 tablet by mouth every 8 hours as needed (muscle spasms). HYDROcodone-acetaminophen (NORCO) 5-325 mg per tablet Take 1 tablet by mouth two times a day as needed for pain for up to 30 days. potassium chloride SR (MICRO-K) 8 mEq cpER Take 1 capsule by mouth daily with breakfast. B (more content not included)... Normal [facility] 04-14-2024 [facility] Telephone ([facility]) -- WILTON KHAN V ([id number]) 1960 F Date Time Provider Department 04/14/24 [facility] During your visit today, we recorded the following information about you: Estefani Bell LPN 04/14/2024 10:45 AM Signed Pt calls to report she had the URI flu at the beginning of the month. Pt reports she is over the flu but pt reports she still has nasal/sinus congestion with dark green mucus, sinus pressure, and headache. Pt reports she has tried otc medication but it hasn't helped. Pt is asking if provider would call in atb for sinus infection. Pt cannot do virtual appts because she isn't capable. Pt denies fever, SOB, chest tightness/pain, cough. Please review and advise. PIA Torres Jacqueline A, APRN.[facility] [facility] 04/14/2024 10:55 AM Signed Needs an appt. Too many things going around. Leida Nava MA 04/14/2024 1:13 PM Signed Message left for pt to call back. CARRIE Briggs M Robin, RN 04/14/2024 1:33 PM Signed Pt returned call and given message below. Pt reports she is having s/s of sinus infection in her nose, blowing green, coughing up green, her throat is a little sore, and having isabel ear pain. Reports she was exposed to person with flu. Pt will see if she can get transportation, to doctors office or [facility]. Pt states her transportation may call in to verify she has an appt or if she can be seen in [facility]. Ok to tell them if she has an appt or being seen in [facility]. Since transportation can be difficult- pt may go to [facility] where an appt is not needed. Allergies As of Date: 04/14/2024 Noted Allergy Reaction LYRICA (PREGABALIN) 08/05/2012 10 - Anaphylaxis Comments: Not sure if accurate. Can take gabapentin. Patient is unsure of reaction. ACCUPRIL (QUINAPRIL HCL) 08/12/2005 5 - Intolerance Comments: dizziness ACTOS (PIOGLITAZONE) 05/14/2020 7 - Swelling AMLODIPINE 04/24/2008 7 - Swelling Comments: Leg edema ATENOLOL 09/29/2010 7 - Swelling ATORVASTATIN 11/01/2017 5 - Intolerance Comments: Muscle cramps and weakness CELEBREX (CELECOXIB) 11/25/2020 7 - Swelling EFFEXOR (VENLAFAXINE HCL) 09/22/2005 Comments: swelling high blood pressure JANUVIA (SITAGLIPTIN) 09/21/2011 8 - GI Upset 14 - Other: See Comments Comments: Patient states she couldn't eat METOPROLOL 09/21/2009 7 - Swelling MOBIC (MELOXICAM) 08/12/2005 8 - GI Upset PROZAC (FLUOXETINE HCL) 08/12/2005 5 - Intolerance Comments: tremor REMERON (MIRTAZAPINE) 11/25/2020 2 - Rash RISPERIDONE 12/22/2009 1 - Mental Status Change SEROQUEL (QUETIAPINE FUMARATE) 10/05/2006 Comments: hypertension,swelling TRULICITY (DULAGLUTIDE) 05/10/2023 5 - Intolerance Comments: Caused nausea and cramps VANCOMYCIN 08/10/2017 9 - Itching 14 - Other: See Comments 2 - Rash Comments: red all over Other reaction(s): Other: See Comments red all over VIOXX (ROFECOXIB) 08/12/2005 8 - GI Upset WELLBUTRIN (BUPROPION HCL) 08/12/2005 5 - Intolerance Comments: nightmares Date Reviewed: 04/14/2024 Reviewed by: Jessenia Kirkpatrick LPN - Fully Assessed Reason for Visit: Sinus Problem [99] Prescriptions as of 04/15/2024 - doxycycline (VIBRA-TABS) 100 mg tablet Take 1 tablet by mouth two times a day for 7 days. - Blood-Glucose Meter,Continuous (DEXCOM G7 ADVANCED REGISTERED NURSE) [facility] Use to check blood sugar at least four (4) times daily. - Blood-Glucose Sensor (DEXCOM G7 SENSOR) jessica Apply new sensor every ten (10) days. - hydrOXYzine pamoate (VISTARIL) 25 mg capsule Take 1 capsule by mouth three times a day as needed. - ARIPiprazole (ABILIFY) 10 mg tablet Take 1 tablet by mouth once daily. - spironolactone (ALDACTONE) 25 mg tablet Take 1 tablet by mouth once daily. - tiZANidine (ZANAFLEX) 4 mg tablet Take 1 tablet by mouth every 8 hours as needed (muscle spasms). - HYDROcodone-acetaminophen (NORCO) 5-325 mg per tablet Take 1 tablet by mouth two times a day as needed for pain for up to 30 days. - potassium chloride SR (MICRO-K) 8 mEq cpER Take 1 capsule by mouth daily with breakfast. - Blood-Glucose Transmitter (DEXCOM G6 TRANSMITTER) jessica Apply new transmitter every 90 days. Clean transmitter with an alcohol swab with each sensor change. - pravastatin (PRAVACHOL) 20 mg tablet Take 1 tablet by mouth daily at bedtime. - furosemide (LASIX) 80 mg tablet Take 1 tablet by mouth once daily. - famotidine (PEPCID) 40 mg tablet Take 1 tablet by mouth once daily. - Cholecalciferol, Vitamin D3, 125 mcg (5,000 unit) cap Take 1 capsule by mouth once daily. - qysjmejy-zhgc-hsj3-C-gio- bosw (OSTEO BI-FLEX TRIPLE STRENGTH) 750 mg-644 mg- 30 mg-1 mg tab Take 1 tablet by mouth two times a day. - DULoxetine (CYMBALTA) 60 mg capsule Take 1 capsule by mouth once daily. - topiramate (TOPAMAX) 25 mg tablet Take 1 tablet by mouth two times a day. - insulin gla (more content not included)... Normal [facility] 03-14-2024 [facility] Telephone ([facility]OR[facility]) -- MARIODEBORAWILTON V ([id number]) 1960 F Date Time Provider Department 03/14/24 JOI MARKHAM During your visit today, we recorded the following information about you: Katherine Ramirez LPN 03/14/2024 8:16 AM Signed ----- Message from Joi Markham sent at 03/14/2024 7:50 AM EST ----- Labs look okay. Magnesium is therapeutic. Hemoglobin A1c indicates blood sugars are okay. Thyroid screening normal range. Katherine Ramirez LPN 03/14/2024 8:16 AM Signed Left a message for pt to call the office and ask to speak to a nurse. PIA Jama Laurie Lynn, LPN 03/14/2024 8:21 AM Signed Patient notified with results. Patient verbalizes understanding. Katherine Ramirez LPN Allergies As of Date: 03/14/2024 Noted Allergy Reaction LYRICA (PREGABALIN) 08/05/2012 10 - Anaphylaxis Comments: Not sure if accurate. Can take gabapentin. Patient is unsure of reaction. ACCUPRIL (QUINAPRIL HCL) 08/12/2005 5 - Intolerance Comments: dizziness ACTOS (PIOGLITAZONE) 05/14/2020 7 - Swelling AMLODIPINE 04/24/2008 7 - Swelling Comments: Leg edema ATENOLOL 09/29/2010 7 - Swelling ATORVASTATIN 11/01/2017 5 - Intolerance Comments: Muscle cramps and weakness CELEBREX (CELECOXIB) 11/25/2020 7 - Swelling EFFEXOR (VENLAFAXINE HCL) 09/22/2005 Comments: swelling high blood pressure JANUVIA (SITAGLIPTIN) 09/21/2011 8 - GI Upset 14 - Other: See Comments Comments: Patient states she couldn't eat METOPROLOL 09/21/2009 7 - Swelling MOBIC (MELOXICAM) 08/12/2005 8 - GI Upset PROZAC (FLUOXETINE HCL) 08/12/2005 5 - Intolerance Comments: tremor REMERON (MIRTAZAPINE) 11/25/2020 2 - Rash RISPERIDONE 12/22/2009 1 - Mental Status Change SEROQUEL (QUETIAPINE FUMARATE) 10/05/2006 Comments: hypertension,swelling TRULICITY (DULAGLUTIDE) 05/10/2023 5 - Intolerance Comments: Caused nausea and cramps VANCOMYCIN 08/10/2017 9 - Itching 14 - Other: See Comments 2 - Rash Comments: red all over Other reaction(s): Other: See Comments red all over VIOXX (ROFECOXIB) 08/12/2005 8 - GI Upset WELLBUTRIN (BUPROPION HCL) 08/12/2005 5 - Intolerance Comments: nightmares Date Reviewed: 11/09/2023 Reviewed by: Joi Markham APRN.[facility] [facility] [facility] - Fully Assessed Reason for Visit: Results [95] Prescriptions as of 03/14/2024 - hydrOXYzine pamoate (VISTARIL) 25 mg capsule Take 1 capsule by mouth three times a day as needed. - Blood-Glucose Meter,Continuous (DEXCOM G7 ADVANCED REGISTERED NURSE) misc Use to check blood sugar at least four (4) times daily. - Blood-Glucose Sensor (DEXCOM G7 SENSOR) jessica Apply new sensor every ten (10) days. - ARIPiprazole (ABILIFY) 10 mg tablet Take 1 tablet by mouth once daily. - spironolactone (ALDACTONE) 25 mg tablet Take 1 tablet by mouth once daily. - tiZANidine (ZANAFLEX) 4 mg tablet Take 1 tablet by mouth every 8 hours as needed (muscle spasms). - HYDROcodone-acetaminophen (NORCO) 5-325 mg per tablet Take 1 tablet by mouth two times a day as needed for pain for up to 30 days. - potassium chloride SR (MICRO-K) 8 mEq cpER Take 1 capsule by mouth daily with breakfast. - Blood-Glucose Transmitter (Dtime G6 TRANSMITTER) jessica Apply new transmitter every 90 days. Clean transmitter with an alcohol swab with each sensor change. - pravastatin (PRAVACHOL) 20 mg tablet Take 1 tablet by mouth daily at bedtime. - furosemide (LASIX) 80 mg tablet Take 1 tablet by mouth once daily. - famotidine (PEPCID) 40 mg tablet Take 1 tablet by mouth once daily. - Cholecalciferol, Vitamin D3, 125 mcg (5,000 unit) cap Take 1 capsule by mouth once daily. - aygmuvme-blxh-lkq7-C-gio- bosw (OSTEO BI-FLEX TRIPLE STRENGTH) 750 mg-644 mg- 30 mg-1 mg tab Take 1 tablet by mouth two times a day. - DULoxetine (CYMBALTA) 60 mg capsule Take 1 capsule by mouth once daily. - topiramate (TOPAMAX) 25 mg tablet Take 1 tablet by mouth two times a day. - insulin glargine (LANTUS SOLOSTAR U-100 INSULIN) 100 unit/mL (3 mL) Inject 30 Units subcutaneously every morning. - traZODone (DESYREL) 100 mg tablet Take 1 tablet by mouth daily at bedtime. - polyethylene glycol 3350 17 gram/dose powder Take 17 g by mouth once daily. - gabapentin (NEURONTIN) 600 mg tablet Take 1 tablet by mouth three times a day for 180 days. - ibuprofen (MOTRIN) 800 mg tablet Take 1 tablet by mouth every 8 hours as needed for pain. Take with food. - rOPINIRole (REQUIP) 0.25 mg tablet Take 1 tablet by mouth daily at bedtime. - acetaminophen (ARTHRITIS PAIN RELIEF) 650 mg CR tablet Take 2 tablets by mouth every 8 hours as needed for pain. Not in same 8h period as [place] (hydrocodone Tylenol) - blood sugar diagnostic (BLOOD GLUCOSE TEST) test strip Test blood sugars up to 4 times daily as directed. Dx: Type 2 DM - Controlled E11.9 Insulin: Yes. - Insulin Maljamar, Disposable, (BD ULTRA-FINE MADI PEN NEEDLE) 32 gaug (more content not included)... Normal [facility] CBC W Auto Differential pane l (Bld)on 03-13-2024 Basophils (Bld) [#/Vol] [facility] Basophils/100 WBC (Bld) 0.4 % [facility] Differential cell count method Nom (Bld) Auto [facility] Eosinophils (Bld) [#/Vol] 0.13 10*3/uL [facility] Eosinophils/100 WBC (Bld) 2.3 % [facility] Erythrocyte distribution width (RBC) [Ratio] 12.2 % 11.5 - 15.0 % [facility] Hematocrit (Bld) [Volume fraction] 39.2 % 36.0 - 46.0 % [facility] Hemoglobin (Bld) [Mass/Vol] 12.9 g/dL 11.5 - 15.5 g/dL [facility] Immature granulocytes (Bld) [#/Vol] [facility] Immature granulocytes/100 WBC (Bld) 0.2 % [facility] Lymphocytes (Bld) [#/Vol] 1.31 10*3/uL [facility] Lymphocytes/100 WBC (Bld) 23.6 % [facility] MCH (RBC) [Entitic mass] 29.7 pg 26.0 - 34.0 pg [facility] MCHC (RBC) [Mass/Vol] 32.9 g/dL 30.5 - 36.0 g/dL [facility] MCV (RBC) [Entitic vol] 90.1 fL 80.0 - 100.0 fL [facility] Monocytes (Bld) [#/Vol] 0.37 10*3/uL [facility] Monocytes/100 WBC (Bld) 6.7 % [facility] Neutrophils (Bld) [#/Vol] 3.70 10*3/uL [facility] Neutrophils/100 WBC (Bld) 66.8 % [facility] Nucleated RBC (Bld) [#/Vol] [facility] Nucleated RBC/100 WBC (Bld) [Ratio] 0.0 % /100 WBC [facility] Platelet mean volume (Bld) [Entitic vol] 11.2 fL 9.0 - 12.7 fL [facility] Platelets (Bld) [#/Vol] 217 10*3/uL [facility] RBC (Bld) [#/Vol] 4.35 10*6/uL 3.90 - 5.2 0 m/uL [facility] WBC (Bld) [#/Vol] 5.54 10*3/uL [facility] Basophils (Bld) [#/Vol] 10*3/uL Normal <0.11 [facility] Comment on above: Order Comment: Speci men Type: BLOOD SPECIMENOrdering Facility: [facility] Address: [address] [place] [address] Performed By: #### 5 7021-8 ####[facility] LABCLIA [id number] [place] [address] [place] Basophils/100 WBC (Bld) 0.4 % Normal [facility] Comment on above: Order Comment: Speci men Type: BLOOD SPECIMENOrdering Facility: [facility] Address: [address] [place] [address] Performed By: #### 5 7021-8 ####[facility] LABCLIA [id number] [place] [address] [place] Differential cell count method Nom (Bld) Auto Normal [facility] Comment on above: Order Comment: Speci men Type: BLOOD SPECIMENOrdering Facility: [facility] Address: [address] [place] [address] Performed By: #### 5 7021-8 ####[facility] LABCLIA [id number] [place] [address] [place] Eosinophils (Bld) [#/Vol] 0.13 10*3/uL Normal <0.46 [facility] Comment on above: Order Comment: Speci men Type: BLOOD SPECIMENOrdering Facility: [facility] Address: [address] [place] [address] Performed By: #### 5 7021-8 ####[facility] LABCLIA [id number] [place] [address] [place] Eosinophils/100 WBC (Bld) 2.3 % Normal [facility] Comment on above: Order Comment: Speci men Type: BLOOD SPECIMENOrdering Facility: [facility] Address: [address] [place] [address] Performed By: #### 5 7021-8 ####[facility] LABCLIA [id number] [place] [address] [place] Erythrocyte distribution width (RBC) [Ratio] 12.2 % Normal 11.5-15.0 [facility] Comment on above: Order Comment: Speci men Type: BLOOD SPECIMENOrdering Facility: [facility] Address: [address] [place] [address] Performed By: #### 5 7021-8 ####[facility] LABCLIA [id number] [place] [address] [place] Hematocrit (Bld) [Volume fraction] 39.2 % Normal 36.0-46.0 [facility] Comment on above: Order Comment: Speci men Type: BLOOD SPECIMENOrdering Facility: [facility] Address: [address] [place] [address] Performed By: #### 5 7021-8 ####[facility] LABCLIA [id number] [place] [address] [place] Hemoglobin (Bld) [Mass/Vol] 12.9 g/dL Normal 11.5-15.5 [facility] Comment on above: Order Comment: Speci men Type: BLOOD SPECIMENOrdering Facility: [facility] Address: [address] [place] [address] Performed By: #### 5 7021-8 ####[facility] LABCLIA [id number] [place] [address] [place] Immature granulocytes (Bld) [#/Vol] 10*3/uL Normal <0.10 [facility] Comment on above: Order Comment: Speci men Type: BLOOD SPECIMENOrdering Facility: [facility] Address: [address] [place] [address] Performed By: #### 5 7021-8 ####[facility] LABCLIA [id number] [place] [address] [place] Immature granulocytes/100 WBC (Bld) 0.2 % Normal [facility] Comment on above: Order Comment: Speci men Type: BLOOD SPECIMENOrdering Facility: [facility] Address: [address] [place] [address] Performed By: #### 5 7021-8 ####[facility] LABCLIA [id number] [place] [address] [place] Lymphocytes (Bld) [#/Vol] 1.31 10*3/uL Normal 1.00-4.00 [facility] Comment on above: Order Comment: Speci men Type: BLOOD SPECIMENOrdering Facility: [facility] Address: [address] [place] [address] Performed By: #### 5 7021-8 ####[facility] LABCLIA [id number] [place] [address] [place] [place]ENTE Lymphocytes/100 WBC (Bld) 23.6 % Normal [facility] Comment on above: Order Comment: Speci men Type: BLOOD SPECIMENOrdering Facility: [facility] Address: [address] [place] [address] Performed By: #### 5 7021-8 ####[facility] LABCLIA [id number] [place] [address] [place] MCH (RBC) [Entitic mass] 29.7 pg Normal 26.0-34.0 [facility] Comment on above: Order Comment: Speci men Type: BLOOD SPECIMENOrdering Facility: [facility] Address: [address] [place] [address] Performed By: #### 5 7021-8 ####[facility] LABCLIA [id number] [place] [address] [place] MCHC (RBC) [Mass/Vol] 32.9 g/dL Normal 30.5-36.0 [facility] Comment on above: Order Comment: Speci men Type: BLOOD SPECIMENOrdering Facility: [facility] Address: [address] [place] [address] Performed By: #### 5 7021-8 ####[facility] LABIA [id number] [place] [address] [place] MCV (RBC) [Entitic vol] 90.1 fL Normal 80.0-100.0 [facility] Comment on above: Order Comment: Speci men Type: BLOOD SPECIMENOrdering Facility: [facility] Address: [address] [place] [address] Performed By: #### 5 7021-8 ####[facility] LABIA [id number] [place] [address] [place] Monocytes (Bld) [#/Vol] 0.37 10*3/uL Normal <0.87 [facility] Comment on above: Order Comment: Speci men Type: BLOOD SPECIMENOrdering Facility: [facility] Address: [address] [place] [address] Performed By: #### 5 7021-8 ####[facility] LABIA [id number] [place] [address] [place] Monocytes/100 WBC (Bld) 6.7 % Normal [facility] Comment on above: Order Comment: Speci men Type: BLOOD SPECIMENOrdering Facility: [facility] Address: [address] [place] [address] Performed By: #### 5 7021-8 ####[facility] LABIA [id number] [place] [address] [place] Neutrophils (Bld) [#/Vol] 3.70 10*3/uL Normal 1.45-7.50 [facility] Comment on above: Order Comment: Speci men Type: BLOOD SPECIMENOrdering Facility: [facility] Address: [address] [place] [address] Performed By: #### 5 7021-8 ####[facility] LABCLIA [id number] [place] [address] [place] Neutrophils/100 WBC (Bld) 66.8 % Normal [facility] Comment on above: Order Comment: Speci men Type: BLOOD SPECIMENOrdering Facility: [facility] Address: [address] [place] [address] Performed By: #### 5 7021-8 ####[facility] LABCLIA [id number] [place] [address] [place] Nucleated RBC (Bld) [#/Vol] 10*3/uL Normal <0.01 [facility] Comment on above: Order Comment: Speci men Type: BLOOD SPECIMENOrdering Facility: [facility] Address: [address] [place] [address] Performed By: #### 5 7021-8 ####[facility] LABCLIA [id number] [place] [address] [place] Nucleated RBC/100 WBC (Bld) [Ratio] 0.0 /100 WBC Normal [facility] Comment on above: Order Comment: Speci men Type: BLOOD SPECIMENOrdering Facility: [facility] Address: [address] [place] [address] Performed By: #### 5 7021-8 ####[facility] LABCLIA [id number] [place] [address] [place] Platelet mean volume (Bld) [Entitic vol] 11.2 fL Normal 9.0-12.7 [facility] Comment on above: Order Comment: Speci men Type: BLOOD SPECIMENOrdering Facility: [facility] Address: [address] [place] [address] Performed By: #### 5 7021-8 ####[facility] LABCLIA [id number] [place] [address] [place] Platelets (Bld) [#/Vol] 217 10*3/uL Normal 150-400 [facility] Comment on above: Order Comment: Speci men Type: BLOOD SPECIMENOrdering Facility: [facility] Address: [address] [place] [address] Performed By: #### 5 7021-8 ####[facility] LABIA [id number] [place] [address] [place] RBC (Bld) [#/Vol] 4.35 10*6/uL Normal 3.90-5.20 [facility] Comment on above: Order Comment: Speci men Type: BLOOD SPECIMENOrdering Facility: [facility] Address: [address] [place] [address] Performed By: #### 5 7021-8 ####[facility] LABIA [id number] [place] [address] [place] WBC (Bld) [#/Vol] 5.54 10*3/uL Normal 3.70-11.00 [facility] Comment on above: Order Comment: Speci men Type: BLOOD SPECIMENOrdering Facility: [facility] Address: [address] [place] [address] Performed By: #### 5 7021-8 ####[facility] LABIA [id number] [place] [address] [place] CNOVon 03-13-2024 CNOV Office Visit (FAMPWS ) -- WILTON KHAN V ([id number]) 1960 F Date Time Provider Department 03/13/24 9:20 AM JOI MARKHAM During your visit today, we recorded the following information about you: Pulse Blood pressure 74/minute 119/77 Joi Markham APRN.CNP 03/13/2024 11:19 AM Signed This is a 64 year old female who presents today with: No chief complaint on file. HISTORY OF PRESENT ILLNESS: Wilton Khan is a 64 year old female. No chief complaint on file. Would like refill of hydroxyzine- helpful Feeling good Wants 2 cd Shingles vaccine Dexcom 6 - CGM- won't adhere. Wants to try Dexcom 7 DM: Reports overall feeling well. Medication side effects: No. Home sugar checks: 150- 200s Hypoglycemic spells: No. Low of 100 Watching diet: Yes. Unexpected weight loss: No. Polyuria, polydipsia: No. Vision Changes: Yes. Up- to -date with eye exam) Foot lesions or numbness or pain: Yes. PAST MEDICAL HISTORY: PAST MEDICAL HISTORY Diagnosis Date Abnormal glandular Papanicolaou smear of cervix 05/30/05 ABNL GLANDULAR PAP SMEAR CERVIX Acute gastritis without mention of hemorrhage Anxiety state, unspecified Arrhythmia Chronic cholecystitis Chronic obstructive pulmonary disease (COPD) ([facility]) Congestive heart failure ([facility]) 10/03/2011 Diabetes ([facility]) diabetes II 2010 Diaphragmatic hernia without mention of obstruction or gangrene Dysthymic disorder Depression (non-psychotic) Esophageal reflux Essential hypertension, benign Generalized OA Hyperprolactinemia ([facility]) 10/13/2005 Localized osteoarthrosis not specified whether primary or secondary, lower leg Major depressive disorder, recurrent episode Mucous polyp of cervix 07/19/05 Other and unspecified anterior pituitary hyperfunction (HCC) 10/13/05 elevated prolactin level-was normal in 2011 PMH - PAST MEDICAL HISTORY OF sleep apnea PMH - PAST MEDICAL HISTORY OF sleep apnea SVT (supraventricular tachycardia) ([facility]) 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 Type 2 diabetes mellitus without complication, with long-term current use of insulin ([facility]) 12/22/2013 PAST SURGICAL HISTORY Procedure Laterality Date BIOPSY CERVIX SINGLE/MULT/EXCISION OF LESION SPX 07/19/2005 endocervical polyp COLONOSCOPY FLX DX W/COLLJ SPEC WHEN PFRMD 01/09/2012 Colonoscopy repeat 10 years COLPOSCOPY CERVIX UPPER/ADJACENT VAGINA Colposcopy EGD TRANSORAL BIOPSY SINGLE/MULTIPLE 01/16/2007 ESOPHAGOGASTRODUODENOSCOPY TRANSORAL DIAGNOSTIC 01/09/2012 EGD HERNIA REPAIR HX 11/2015 ventral HYSTEROSCOPY DX 12/17/2014 [facility] LAPS SURG CHOLECYSTECTOMY W/CHOLANGIOGRAPHY 05/15/2008 PARATHYROID ALLERGIES Lyrica [Pregabalin], Accupril [Quinapril Hcl], Actos [Pioglitazone], Amlodipine, Atenolol, Atorvastatin, Celebrex [Celecoxib], Effexor [Venlafaxine Hcl], Januvia [Sitagliptin], Metoprolol, Mobic [Meloxicam], Prozac [Fluoxetine Hcl], Remeron [Mirtazapine], Risperidone, Seroquel [Quetiapine Fumarate], Trulicity [Dulaglutide], Vancomycin, Vioxx [Rofecoxib], and Wellbutrin [Bupropion Hcl] MEDICATIONS Current Outpatient Medications Medication Sig ARIPiprazole (ABILIFY) 10 mg tablet Take 1 tablet by mouth once daily. spironolactone (ALDACTONE) 25 mg tablet Take 1 tablet by mouth once daily. tiZANidine (ZANAFLEX) 4 mg tablet Take 1 tablet by mouth every 8 hours as needed (muscle spasms). HYDROcodone-acetaminophen (NORCO) 5-325 mg per tablet Take 1 tablet by mouth two times a day as needed for pain for up to 30 days. potassium chloride SR (MICRO-K) 8 mEq cpER Take 1 capsule by mouth daily with breakfast. Blood-Glucose Transmitter (Dtime G6 TRANSMITTER) jessica Apply new transmitter every 90 days. Clean transmitter with an alcohol swab with each sensor change. pravastatin (PRAVACHOL) 20 mg tablet Take 1 tablet by mouth daily at bedtime. furosemide (LASIX) 80 mg tablet Take 1 tablet by mouth once daily. famotidine (PEPCID) 40 mg tablet Take 1 tablet by mouth once daily. Cholecalciferol, Vitamin D3, 125 mcg (5,000 unit) cap Take 1 capsule by mouth once daily. fxbpygeb-sifz-lex5-C-gio- bosw (OSTEO BI-FLEX TRIPLE STRENGTH) 750 mg-644 mg- 30 mg-1 mg tab Take 1 tablet by mouth two times a day. DULoxetine (CYMBALTA) 60 mg capsule Take 1 capsule by mouth once daily. topiramate (TOPAMAX) 25 mg tablet Take 1 tablet by mouth two times a day. insulin glargine (LANTUS SOLOSTAR U-100 INSULIN) 100 unit/mL (3 mL) Inject 30 Units subcutaneously every morning. traZODone (DESYREL) 100 mg tablet Take 1 tablet by mouth daily at bedtime. polyethylene glycol 3350 17 gram/dose powder Take 17 g by mouth once daily. gabapentin (NEURONTIN) 600 mg tablet Take 1 tablet by mouth three times a day for 180 days. ibuprofen (MOTRIN) 800 mg tablet Take 1 tablet by mouth every 8 hours as needed for pain. Take with food. rOPINIRole (REQUIP) 0.25 mg tablet Take (more content not included)... Normal [facility] Comprehensive metabolic 2000 panelon 03-13-2024 Albumin [Mass/Vol] 4.3 g/dL Normal 3.9-4.9 [facility] Comment on above: Order Comment: Speci men Type: BLOOD SPECIMENOrdering Facility: [facility] Address: [address] [place] [address] Performed By: #### 2 132-9, 98415-7, 3016-3, 53000-7 ####[facility] LABIA [id number] [place] [address] [place] ALP [Catalytic activity/Vol] 107 U/L Normal 34-123 [facility] Comment on above: Order Comment: Speci men Type: BLOOD SPECIMENOrdering Facility: [facility] Address: [address] [place] [address] Performed By: #### 2 132-9, 21972-1, 3016-3, 21402-5 ####[facility] LABCLIA [id number] [place] [address] [place] ALT [Catalytic activity/Vol] 14 U/L Normal 7-38 [facility] Comment on above: Order Comment: Speci men Type: BLOOD SPECIMENOrdering Facility: [facility] Address: [address] [place] [address] Performed By: #### 2 132-9, 12772-9, 3016-3, 16884-2 ####[facility] LABCLIA [id number] [place] [address] [place] Anion gap [Moles/Vol] 9 mmol/L Normal 8-15 [facility] Comment on above: Order Comment: Speci men Type: BLOOD SPECIMENOrdering Facility: [facility] Address: [address] [place] [address] Performed By: #### 2 132-9, 85870-1, 3016-3, 00213-0 ####[facility] LABCLIA [id number] [place] [address] [place] AST [Catalytic activity/Vol] 16 U/L Normal 13-35 [facility] Comment on above: Order Comment: Speci men Type: BLOOD SPECIMENOrdering Facility: [facility] Address: [address] [place] [address] Performed By: #### 2 132-9, 88997-1, 3016-3, 92997-1 ####[facility] LABCLIA [id number] [place] [address] [place] Bilirubin [Mass/Vol] 0.5 mg/dL Normal 0.2-1.3 [facility] Comment on above: Order Comment: Speci men Type: BLOOD SPECIMENOrdering Facility: [facility] Address: [address] [place] [address] Performed By: #### 2 132-9, 08954-9, 3016-3, 75426-5 ####[facility] LABCLIA [id number] [place] [address] [place] Calcium [Mass/Vol] 9.4 mg/dL Normal 8.5-10.2 [facility] Comment on above: Order Comment: Speci men Type: BLOOD SPECIMENOrdering Facility: [facility] Address: [address] [place] [address] Performed By: #### 2 132-9, 06460-8, 3016-3, 64377-0 ####[facility] LABCLIA [id number] [place] [address] [place] Chloride [Moles/Vol] 104 mmol/L Normal 98-107 [facility] Comment on above: Order Comment: Speci men Type: BLOOD SPECIMENOrdering Facility: [facility] Address: [address] [place] [address] Performed By: #### 2 132-9, 31755-7, 3016-3, 37036-2 ####[facility] LABCLIA [id number] [place] [address] [place] CO2 [Moles/Vol] 30 mmol/L Normal 22-30 [facility] Comment on above: Order Comment: Speci men Type: BLOOD SPECIMENOrdering Facility: [facility] Address: [address] [place] [address] Performed By: #### 2 132-9, 15739-1, 3016-3, 71404-7 ####[facility] LABCLIA [id number] [place] [address] [place] Creatinine [Mass/Vol] 0.61 mg/dL Normal 0.58-0.96 [facility] Comment on above: Order Comment: Speci men Type: BLOOD SPECIMENOrdering Facility: [facility] Address: [address] [place] [address] Performed By: #### 2 132-9, 49649-6, 3016-3, 94784-8 ####[facility] LABCLIA [id number] [place] [address] [place] Creatinine and Glomerular filtration rate.predicted panel (S/P/Bld) 100 mL/min/1.73m??? Normal >=60 [facility] Comment on above: Order Comment: Speci men Type: BLOOD SPECIMENOrdering Facility: [facility] Address: [address] [place] [id number] Result Comment: Sidney mated Glomerular Filtration Rate (eGFR) is calculated using the 2020 CKD-EPI creatinine equation. This equation utilizes serum creatinine, sex, and age as parameters. The creatinine assay has traceable calibration to isotope dilution-mass spectrometry. Refer to KDIGO guidelines for clinical interpretation. In patients with unstable renal function, e.g. those with acute kidney injury, the eGFR may not accurately reflect actual GFR. Performed By: #### 2 132-9, 98581-3, 6-3, 05373-8 ####[facility] LABCLIA [id number] [place] [id number] [place] Glucose [Mass/Vol] 167 mg/dL High 74-99 [facility] Comment on above: Order Comment: Dianne hernández Type: BLOOD SPECIMENOrdering Facility: [facility] Address: [address] [place] [address] Result Comment: The [place] Diabetes Association (ADA) provides guidance for cutoff values for fasting glucose and random glucose. The ADA defines fasting as no caloric intake for at least 8 hours. Fasting plasma glucose results between 100 to 125 [...] Standards of Medical Care in Diabetes 2016, [place] Diabetes Association. Diabetes Care. 2016.39(Suppl 1). Performed By: #### 2 132-9, 42872-9, 3015-3, 41519-9 ####[facility] LABIA [id number] [place] [id number] [place] Potassium [Moles/Vol] 4.5 mmol/L Normal 3.7-5.1 [facility] Comment on above: Order Comment: Speci men Type: BLOOD SPECIMENOrdering Facility: [facility] Address: [address] [place] [id number] Performed By: #### 2 132-9, 88820-1, 3016-3, 01578-1 ####[facility] LABCLIA [id number] [place] [address] [place] Protein [Mass/Vol] 6.4 g/dL Normal 6.3-8.0 [facility] Comment on above: Order Comment: Speci men Type: BLOOD SPECIMENOrdering Facility: [facility] Address: [address] [place] [address] Performed By: #### 2 132-9, 52861-0, 3016-3, 25502-0 ####[facility] LABIA [id number] [place] [address] [place] Sodium [Moles/Vol] 143 mmol/L Normal 136-144 [facility] Comment on above: Order Comment: Speci men Type: BLOOD SPECIMENOrdering Facility: [facility] Address: [address] [place] [address] Performed By: #### 2 132-9, 77949-9, 3016-3, 15127-0 ####[facility] LABIA [id number] [place] [address] [place] Urea nitrogen [Mass/Vol] 17 mg/dL Normal 7-21 [facility] Comment on above: Order Comment: Speci men Type: BLOOD SPECIMENOrdering Facility: [facility] Address: [address] [place] [address] Performed By: #### 2 132-9, 71283-0, 3016-3, 01661-7 ####[facility] LABIA [id number] [place] [address] [place] HbA1c (Bld)on 03-13-2024 Average glucose Estimated from glycated hemoglobin (Bld) [Mass/Vol] 160 mg/dL Normal [facility] Comment on above: Order Comment: Speci men Type: BLOOD SPECIMENOrdering Facility: [facility] Address: [address] [place] [address] Result Comment: eAG: (Estimated average glucose) is a calculated value from HgbA1c and is unit support representative of the average blood glucose level in the last 2-3 month period. Performed By: #### 5 5454-3 ####[facility] LABIA [id number] [place] [address] [place] HbA1c (Bld) [Mass fraction] 7.2 % High 4.3-5.6 [facility] Comment on above: Order Comment: Speci men Type: BLOOD SPECIMENOrdering Facility: [facility] Address: [address] [place] [address] Result Comment: [place] Diabetes Association guidelines indicate that patients with HgbA1c in the range 5.7-6.4% are at increased risk for development of diabetes, and intervention by lifestyle modification may be beneficial. HgbA1c greater or equal to 6.5% is considered diagnostic of diabetes. Performed By: #### 5 5454-3 ####[facility] LABIA [id number] [place] [address] [place] Magnesium SerPl-mCncon 03-13 Magnesium [Mass/Vol] 2.4 mg/dL High 1.7-2.3 [facility] Comment on above: Order Comment: Speci men Type: BLOOD SPECIMENOrdering Facility: [facility] Address: [address] [place] [address] Performed By: #### 2 132-9, 54572-3, 3016-3, 91395-8 ####[facility] LABIA [id number] [place] [address] [place] TSH SerPl-aCncon 03-13-2024 TSH Qn 1.470 m[IU]/L Normal 0.270-4.200 [facility] Comment on above: Order Comment: Speci men Type: BLOOD SPECIMENOrdering Facility: [facility] Address: [address] [place] [address] Performed By: #### 2 132-9, 03473-9, 3016-3, 30523-2 ####[facility] LABCLIA [id number] [place] [address] [place] Vit B12 SerPl-ncon 025 Cobalamin (Vitamin B12) [Mass/Vol] 672 pg/mL Normal 232-1245 [facility] Comment on above: Order Comment: Speci men Type: BLOOD SPECIMENOrdering Facility: [facility] Address: [address] [place] [address] Performed By: #### 2 132-9, 66674-8, 3016-3, 07065-4 ####[facility] LABCLIA [id number] [address] [place] [facility] WILTON KHAN V ([id number]) 1960 F Date Time Provider Department 02/12/24 [facility] MARKHAM [facility] During your visit today, we recorded the following information about you: Narda Fournier 02/12/2024 8:20 AM Signed Patient requesting medication that is HYDROcodone-acetaminophen (NORCO) 5-325 mg per tablet () Patient last seen 11-09-23 Future visit scheduled: yes PHARMACY: [facility]. Joi Markham, BRIANA.[facility] 02/12/2024 10:50 AM Signed Be careful with the [place]. She is using it every 30 days. This is to be used sparingly. It is very habit-forming. Can have lasting harmful effects. May need to refer to pain management. Louie Wade MA 02/12/2024 10:58 AM Signed Patient notified of provider message and verbalizes understanding. She had an appointment on 03/10/24 and wishes to discuss pain management further at that visit. Louie Wade MA February 12, 2024 10:58 AM Allergies As of Date: 02/12/2024 Noted Allergy Reaction LYRICA (PREGABALIN) 08/05/2012 10 - Anaphylaxis Comments: Not sure if accurate. Can take gabapentin. Patient is unsure of reaction. ACCUPRIL (QUINAPRIL HCL) 08/12/2005 5 - Intolerance Comments: dizziness ACTOS (PIOGLITAZONE) 05/14/2020 7 - Swelling AMLODIPINE 04/24/2008 7 - Swelling Comments: Leg edema ATENOLOL 09/29/2010 7 - Swelling ATORVASTATIN 11/01/2017 5 - Intolerance Comments: Muscle cramps and weakness CELEBREX (CELECOXIB) 11/25/2020 7 - Swelling EFFEXOR (VENLAFAXINE HCL) 09/22/2005 Comments: swelling high blood pressure JANUVIA (SITAGLIPTIN) 09/21/2011 8 - GI Upset 14 - Other: See Comments Comments: Patient states she couldn't eat METOPROLOL 09/21/2009 7 - Swelling MOBIC (MELOXICAM) 08/12/2005 8 - GI Upset PROZAC (FLUOXETINE HCL) 08/12/2005 5 - Intolerance Comments: tremor REMERON (MIRTAZAPINE) 11/25/2020 2 - Rash RISPERIDONE 12/22/2009 1 - Mental Status Change SEROQUEL (QUETIAPINE FUMARATE) 10/05/2006 Comments: hypertension,swelling TRULICITY (DULAGLUTIDE) 05/10/2023 5 - Intolerance Comments: Caused nausea and cramps VANCOMYCIN 08/10/2017 9 - Itching 14 - Other: See Comments 2 - Rash Comments: red all over Other reaction(s): Other: See Comments red all over VIOXX (ROFECOXIB) 08/12/2005 8 - GI Upset WELLBUTRIN (BUPROPION HCL) 08/12/2005 5 - Intolerance Comments: nightmares Date Reviewed: 11/09/2023 Reviewed by: Joi Markham APRN.OIL FIELD ROUSTABOUT - Fully Assessed Reason for Visit: requesting medication that is [Other] Visit Diagnoses:DDD (degenerative disc disease), lumbar [M51.369] DDD (degenerative disc disease), cervical [M50.30] Lumbar facet arthropathy [M47.816] Diffuse myofascial pain syndrome [M79.18] Pain disorder with psychological factors [F45.42] Order(s):HYDROcodone-aceta minophen (NORCO) 5-325 mg per tabletTake 1 tablet by mouth two times a day as needed for pain for up to 30 days.Disp: 60 tabletRfl: 0 Prescriptions as of 02/12/2024 - tiZANidine (ZANAFLEX) 4 mg tablet Take 1 tablet by mouth every 8 hours as needed (muscle spasms). - HYDROcodone-acetaminophen (NORCO) 5-325 mg per tablet Take 1 tablet by mouth two times a day as needed for pain for up to 30 days. - potassium chloride SR (MICRO-K) 8 mEq cpER Take 1 capsule by mouth daily with breakfast. - Blood-Glucose Transmitter (Dtime G6 TRANSMITTER) jessica Apply new transmitter every 90 days. Clean transmitter with an alcohol swab with each sensor change. - pravastatin (PRAVACHOL) 20 mg tablet Take 1 tablet by mouth daily at bedtime. - furosemide (LASIX) 80 mg tablet Take 1 tablet by mouth once daily. - famotidine (PEPCID) 40 mg tablet Take 1 tablet by mouth once daily. - Cholecalciferol, Vitamin D3, 125 mcg (5,000 unit) cap Take 1 capsule by mouth once daily. - lbicooda-kudc-yiu8-C-gio- bosw (OSTEO BI-FLEX TRIPLE STRENGTH) 750 mg-644 mg- 30 mg-1 mg tab Take 1 tablet by mouth two times a day. - ARIPiprazole (ABILIFY) 10 mg tablet Take 1 tablet by mouth once daily. - spironolactone (ALDACTONE) 25 mg tablet Take 1 tablet by mouth once daily. - DULoxetine (CYMBALTA) 60 mg capsule Take 1 capsule by mouth once daily. - topiramate (TOPAMAX) 25 mg tablet Take 1 tablet by mouth two times a day. - insulin glargine (LANTUS SOLOSTAR U-100 INSULIN) 100 unit/mL (3 mL) Inject 30 Units subcutaneously every morning. - traZODone (DESYREL) 100 mg tablet Take 1 tablet by mouth daily at bedtime. - polyethylene glycol 3350 17 gram/dose powder Take 17 g by mouth once daily. - gabapentin (NEURONTIN) 600 mg tablet Take 1 tablet by mouth three times a day for 180 days. - ibuprofen (MOTRIN) 800 mg tablet Take 1 tablet by mouth every 8 hours as needed for pain. Take with food. - rOPINIRole (REQUIP) 0.25 mg tablet Take 1 tablet by mouth daily at bedtime. - acetaminophen (ARTHRITIS PAIN RELIEF) 650 mg CR t (more content not included)... Normal [facility] CNOVon 03-15-2023 CNOV Office Visit (SPAGWO ) -- WILTON KHAN V ([id number]) 1960 F Date Time Provider Department 03/15/23 2:00 PM KOJO ANDERSEN During your visit today, we recorded the following information about you: Pulse Respiration 80/minute 20/minute Kojo Andersen MD 03/15/2023 2:30 PM Signed [facility] Today's Date: 03/15/2023 Name: Wilton Khan : 1960 Purpose: New Patient Consultation Chief complaint: lower back pain and leg pain/DDD/ in a powerchair Referring Clinician: Sanjay Abbasi PA-C Pertinent Past Medical History: DM type 2 with peripheral neuropathy, Pain disorder with psychological factors, SVT, HTN, Benign hypertensive heart disease with CHF, NYHA class 2, JEREMÍAS, Former smoker, Liver disease, Umbilical hernia, hyperparathyroidism, DVT, DDD cervical, lumbar, OA bilat. Knee, Pressure injury of left thigh, stage 3, MDD, Obesity, Anxiety, Pertinent Past Surgeries: Hernia repair (ventral), History of Present Illness (HPI): 03/14/2023 - Initial HPI (Obtained by Kojo Andersen M.D.). DURATION AND ONSET: The pain complaint has been present for approximately 20 years. The pain had a gradual onset. The mechanism of injury is unknown. She uses a power wheelchair in the community. She uses a rollator at home. She saw Orthopedics 5 years ago, was told that she needed to lose weight before they could replace She has been relying primarily upon medications to help with her pain. She previously saw Dr. Pacheco's office for pain management, stopped attending because all he wanted to do was give her injections. Reports had epidurals and that they stopped working after a time. Steroid injections in the knees stopped helping also. Hips have not been injected. She has lost about 40 pounds in the past 6 months. RED FLAG SYMPTOMS: denies red flags. PAIN DESCRIPTION: Timing: Constant Character: Aching, Cramping Primary Location: bilateral knees, hips and low back Radiation: none Exacerbating factors: Standing, Walking Relieving factors: Reclining Interferes with: physical activity Current Pain Medications: Neuropathics: Gabapentin 300mg BID and Cymbalta 60mg (for mood) NSAIDS: Motrin 800mg BID PRN Muscle Relaxants: Zanaflex 4mg PRN - takes intermittently for muscle cramps Topicals: Other Prescription or OTC Pain Medications: Arthritis Tylenol 650mg BID PRN Opioids (when applicable): [place] 5/325 mg BID PRN Greenlight Questionnaire GREENLIGHT Completed Date 03/15/2023 Opioid Risk Tool Opiod Risk Tool Date Completed 03/15/2023 GERRY-7 Anxiety Score 9 Completed Date 03/15/2023 PHQ9P Score 7 Completed Date 03/15/2023 Anti-depressants or Mood-Stabilizers: Trazodone 100mg, Abilify 10mg Anti-Coagulants: None Therapies Attended (Current or Most Recent): No Current Therapies - last attended 2 years ago; does not recall the exercises (was home therapy) - uses medical transport She tries to walk for exercises when she can Treatment History: PAIN PROCEDURES: DATE PROCEDURE IMPROVEMENT To date, no interventional pain management procedures performed at this practice. MEDICATIONS Taken TO DATE (for the chief complaint(s)): Neuropathics: Neurontin (Gabapentin), Cymbalta (Duloxetine); Lyrica - anaphylaxis (tolerates Neurontin); Effexor - Swelling and high blood pressure; NSAIDS: Motrin (Ibuprofen), Naprosyn (Naproxen), Voltaren (Diclofenac), Relafen (Nabumetone); Mobic - GI upset; Celebrex - Swelling Muscle Relaxants: Flexeril (Cyclobenzaprine), Robaxin (Methocarbamol), Zanaflex (Tizanidine), Lioresal (Baclofen) Topicals: None Other Prescription or OTC Pain Medications: Arthritis Pain Opioids: Hydrocodone (eg [place]) Data Reviewed Today: Allergies: ALLERGIES Allergen Reactions Lyrica [Pregabalin] Anaphylaxis Not sure if accurate. Can take gabapentin. Patient is unsure of reaction. Accupril [Quinapril* Intolerance dizziness Actos [Pioglitazone] Swelling Amlodipine Swelling Leg edema Atenolol Swelling Atorvastatin Intolerance Muscle cramps and weakness Celebrex [Celecoxib] Swelling Effexor [Venlafaxin* swelling high blood pressure Januvia [Sitaglipti* GI Upset, Other: See Comments Patient states she couldn't eat Metoprolol Swelling Mobic [Meloxicam] GI Upset Prozac [Fluoxetine * Intolerance tremor Remeron [Mirtazapin* Rash Risperidone Mental Status Change Seroquel [Quetiapin* hypertension,swelling Vancomycin Itching, Other: See Comments, Rash red all over Other reaction(s): Other: See Comments red all over Vioxx [Rofecoxib] GI Upset Wellbutrin [Bupropi* Intolerance nightma (more content not included)... Normal [facility] HbA1c (Bld)on 05-08-2022 Average glucose Estimated from glycated hemoglobin (Bld) [Mass/Vol] 157 mg/dL [facility] HbA1c (Bld) [Mass fraction] 7.1 % High 4.3 - 5.6 % [facility] Absolute lymphocyte countOrd ered By: Dr. Crespo on 03-07-2022 Lymphocytes Auto (Unsp spec) [#/Vol] 1.23 10*3/uL 0.83-4.51 [facility] Basophil percentageOrdered B y: Dr. Crespo on 03-07-2022 Basophils/100 WBC (Bld) 0.5 % 0-1 [facility] Chloride [Moles/Vol] 102 mmol/L 98-107 [facility] Eosinophils/100 WBC (Bld) 2.1 % 0-5 [facility] Glucose [Mass/Vol] 187 mg/dL 74-106 [facility] Comment on above: Fasting Glucose resu lt greater than or equal to 126 mg/dL suggests DIABETES MELLITUS per A.D.A. criteria. Lactate [Moles/Vol] 1.5 mmol/L 0.4-2.0 [facility] Neutrophils (Bld) [#/Vol] 4.4 10*3/uL 2.0-7.7 [facility] Neutrophils/100 WBC (Bld) 70.3 % 47-70 [facility] Potassium [Moles/Vol] 3.7 mmol/L 3.5-5.1 [facility] Sodium [Moles/Vol] 139 mmol/L 136-145 [facility] WBC (Bld) [#/Vol] 6.2 10*3/uL 4.4-11.0 [facility] Blood erythrocytes count (nu mber/volume)Ordered By: Dr. Crespo on 03-07-2022 RBC (Bld) [#/Vol] 4.30 10*6/uL 4.2-5.4 [facility] Blood hemoglobin measurement (mass/volume)Ordered By: Dr. Crespo on 03-07-2022 Hemoglobin (Bld) [Mass/Vol] 12.6 g/dL 12.0-15.0 [facility] Blood lymphocytes/100 leukoc ytesOrdered By: Dr. Crespo on 03-07-2022 Lymphocytes/100 WBC (Bld) 19.7 % 19-41 [facility] Blood monocytes/100 leukocyt esOrdered By: Dr. Crespo on 03-07-2022 Monocytes/100 WBC (Bld) 7.2 % 0-10 [facility] Blood platelet mean volumeOr dered By: Dr. Crespo on 03-07-2022 Platelet mean volume (Bld) [Entitic vol] 10.1 fL 6.2-12.0 [facility] Determination of erythrocyte mean corpuscular volume (MCV)Ordered By: Dr. Crespo on 03-07-2022 MCV (RBC) [Entitic vol] 87.7 fL 81-99 [facility] Hematocrit Auto (Bld) [Volum e fraction]Ordered By: Dr. Crespo on 03-07-2022 Hematocrit (Bld) [Volume fraction] 37.7 % 37-47 [facility] Laboratory - Chemistry and C hemistry - challengeOrdered By: Dr. Crespo on 03-07-2022 CO2 [Moles/Vol] 31.0 mmol/L 21.0-32.0 [facility] Urea nitrogen/Creatinine [Mass ratio] 25.8 mg/mg 10-20 [facility] Laboratory - Hematology and Cell countsOrdered By: Dr. Crespo on 03-07-2022 Erythrocyte distribution width (RBC) [Entitic vol] 40.9 fL 35.1-43.9 [facility] Erythrocyte distribution width (RBC) [Ratio] 12.9 % 11.6-14.6 [facility] Immature granulocytes/100 WBC (Bld) 0.200 % 0.0-0.9 [facility] Comment on above: IG% - Immature Granu locytes (promyelocytes, myelocytes and metamyelocytes) > 1% indicates that a LEFT SHIFT is Present. MCH (RBC) [Entitic mass] 29.3 pg 27.0-32.0 [facility] Nucleated RBC/100 WBC (Bld) [Ratio] 0 % 0-5 [facility] MCHC Auto (RBC) [Mass/Vol]Or dered By: Dr. Crespo on 03-07-2022 MCHC (RBC) [Mass/Vol] 33.4 g/dL 32-36 [facility] No Panel InformationOrdered By: Dr. Crespo on 03-07-2022 Estimated Creatinine Clearance Calc 223.74 ml/min [facility] Estimated GFR (MDRD) Amer 103 mL/min >60 [facility] Comment on above: GFR Calc Estimated GFR (MDRD) Non-Af Amer 85 mL/min >60 [facility] Comment on above: Non- GFR Calc Platelets bldOrdered By: Dr. Crespo on 03-07-2022 Platelets (Bld) [#/Vol] 251 10*3/uL 150-450 [facility] Serum or plasma calcium fabiola urement (mass/volume)Ordered By: Dr. Crespo on 03-07-2022 Calcium [Mass/Vol] 9.3 mg/dL 8.5-10.1 [facility] Serum or plasma creatinine m easurement (mass/volume)Ordered By: Dr. Crespo on 03-07-2022 Creatinine [Mass/Vol] 0.74 mg/dL 0.55-1.02 [facility] Comment on above: The validity of the calculated GFR & GFRAA in patients over 70 years has not been determined. Clinical correlation is essential. Serum or plasma urea nitroge n measurement (mass/volume)Ordered By: Dr. Crespo on 03-07-2022 Urea nitrogen [Mass/Vol] 19 mg/dL 7-18 [facility] Thin prep Papanicolaou smear with manual screeningOrdered By: Dr. Crespo on 03-07-2022 Thin prep Papanicolaou smear with manual screening 6 - [facility] Laboratory - Microbiology an d Antimicrobial susceptibilityOrdered By: Dr. Prakash on 03-05-2022 Bacteria identified Cx Nom (Bld) Streptococcus agalactiae (B) [facility] Absolute lymphocyte countOrd ered By: Dr. Morgan on 03-04-2022 Lymphocytes Auto (Unsp spec) [#/Vol] 0.89 10*3/uL 0.83-4.51 [facility] Bacteria identified Cx Nom ( Wound)Ordered By: Dr. Barron on 03-04-2022 Wound Culture Staphylococcus aureus [facility] Basophil percentageOrdered B y: Dr. Morgan on 03-04-2022 Basophil percentage 2.5 mg/dL 2.5-4.9 [facility] Basophils/100 WBC (Bld) 0.2 % 0-1 [facility] Chloride [Moles/Vol] 104 mmol/L 98-107 [facility] Eosinophils/100 WBC (Bld) 4.0 % 0-5 [facility] Glucose [Mass/Vol] 199 mg/dL 74-106 [facility] Comment on above: Fasting Glucose resu lt greater than or equal to 126 mg/dL suggests DIABETES MELLITUS per A.D.A. criteria. Neutrophils (Bld) [#/Vol] 3.2 10*3/uL 2.0-7.7 [facility] Neutrophils/100 WBC (Bld) 68.4 % 47-70 [facility] Potassium [Moles/Vol] 3.9 mmol/L 3.5-5.1 [facility] Sodium [Moles/Vol] 140 mmol/L 136-145 [facility] WBC (Bld) [#/Vol] 4.7 10*3/uL 4.4-11.0 [facility] Blood erythrocytes count (nu mber/volume)Ordered By: Dr. Morgan on 03-04-2022 RBC (Bld) [#/Vol] 4.00 10*6/uL 4.2-5.4 [facility] Blood hemoglobin measurement (mass/volume)Ordered By: Dr. Morgan on 03-04-2022 Hemoglobin (Bld) [Mass/Vol] 11.6 g/dL 12.0-15.0 [facility] Blood lymphocytes/100 leukoc ytesOrdered By: Dr. Morgan on 03-04-2022 Lymphocytes/100 WBC (Bld) 18.9 % 19-41 [facility] Blood monocytes/100 leukocyt esOrdered By: Dr. Morgan on 03-04-2022 Monocytes/100 WBC (Bld) 8.3 % 0-10 [facility] Blood platelet mean volumeOr dered By: Dr. Morgan on 03-04-2022 Platelet mean volume (Bld) [Entitic vol] 10.3 fL 6.2-12.0 [facility] Culture, urineOrdered By: Dr Montrell Prakash on 03-04-2022 Bacteria identified Cx Nom (U) Escherichia coli [facility] Determination of erythrocyte mean corpuscular volume (MCV)Ordered By: Dr. Morgan on 03-04-2022 MCV (RBC) [Entitic vol] 89.5 fL 81-99 [facility] Glucose Glucometer (BldC) [M ass/Vol]Ordered By: Dr. Morgan on 03-04-2022 Glucose [Mass/Vol] 278 mg/dL 74-106 [facility] Comment on above: MANAGEMENT OF PATIEN T CARE PER NURSING PROTOCOL Hematocrit Auto (Bld) [Volum e fraction]Ordered By: Dr. Morgan on 03-04-2022 Hematocrit (Bld) [Volume fraction] 35.8 % 37-47 [facility] Laboratory - Chemistry and C hemistry - challengeOrdered By: Dr. Morgan on 03-04-2022 CO2 [Moles/Vol] 29.0 mmol/L 21.0-32.0 [facility] Magnesium [Mass/Vol] 2.2 mg/dL 1.6-2.6 [facility] Urea nitrogen/Creatinine [Mass ratio] 25.0 mg/mg 10-20 [facility] Laboratory - Hematology and Cell countsOrdered By: Dr. Morgan on 03-04-2022 Erythrocyte distribution width (RBC) [Entitic vol] 43.9 fL 35.1-43.9 [facility] Erythrocyte distribution width (RBC) [Ratio] 13.2 % 11.6-14.6 [facility] Immature granulocytes/100 WBC (Bld) 0.200 % 0.0-0.9 [facility] Comment on above: IG% - Immature Granu locytes (promyelocytes, myelocytes and metamyelocytes) > 1% indicates that a LEFT SHIFT is Present. MCH (RBC) [Entitic mass] 29.0 pg 27.0-32.0 [facility] Nucleated RBC/100 WBC (Bld) [Ratio] 0 % 0-5 [facility] MCHC Auto (RBC) [Mass/Vol]Or dered By: Dr. Morgan on 03-04-2022 MCHC (RBC) [Mass/Vol] 32.4 g/dL 32-36 [facility] No Panel InformationOrdered By: Dr. Morgan on 03-04-2022 Estimated Creatinine Clearance Calc 295.98 ml/min [facility] Estimated GFR (MDRD) Amer 141 mL/min >60 [facility] Comment on above: GFR Calc Estimated GFR (MDRD) Non-Af Amer 117 mL/min >60 [facility] Comment on above: Non- GFR Calc Platelets bldOrdered By: Dr. Morgan on 03-04-2022 Platelets (Bld) [#/Vol] 190 10*3/uL 150-450 [facility] Serum or plasma calcium fabiola urement (mass/volume)Ordered By: Dr. Morgan on 03-04-2022 Calcium [Mass/Vol] 8.2 mg/dL 8.5-10.1 [facility] Serum or plasma creatinine m easurement (mass/volume)Ordered By: Dr. Morgan on 03-04-2022 Creatinine [Mass/Vol] 0.56 mg/dL 0.55-1.02 [facility] Comment on above: The validity of the calculated GFR & GFRAA in patients over 70 years has not been determined. Clinical correlation is essential. Serum or plasma urea nitroge n measurement (mass/volume)Ordered By: Dr. Morgan on 03-04-2022 Urea nitrogen [Mass/Vol] 14 mg/dL 7-18 [facility] Thin prep Papanicolaou smear with manual screeningOrdered By: Dr. Morgan on 03-04-2022 Thin prep Papanicolaou smear with manual screening 7 5-15 [facility] Basophil percentageOrdered B y: Dr. Barron on 03-03-2022 Bilirubin [Mass/Vol] 0.70 mg/dL 0.20-1.00 [facility] Comment on above: For patients on eltr ombopag therapy, use of Dimension [place] TBIL is not recommended. Protein [Mass/Vol] 5.9 g/dL 6.4-8.2 [facility] Gram stain for investigation of transfusion reactionOrdered By: Dr. Barron on 03-03-2022 Microscopic observation Gram stain Nom (Unsp spec) [facility] Laboratory - Chemistry and C hemistry - challengeOrdered By: Dr. Barron on 03-03-2022 ALP [Catalytic activity/Vol] 87 U/L 45-117 [facility] ALT [Catalytic activity/Vol] 14 U/L 13-56 [facility] Globulin (S) [Mass/Vol] 3.2 g/dL 2.2-4.2 [facility] No Panel InformationOrdered By: Dr. Prakash on 03-03-2022 Bacteria Detection (PCR) Streptococcus agalactiae (B) [facility] Serum or plasma albumin fabiola urement (mass/volume)Ordered By: Dr. Barron on 03-03-2022 Albumin [Mass/Vol] 2.7 g/dL 3.2-5.0 [facility] Serum or plasma albumin/glob ulin mass ratioOrdered By: Dr. Barron on 03-03-2022 Albumin/Globulin [Mass ratio] 0.8 {ratio} 0.9-2.4 [facility] Thin prep Papanicolaou smear with manual screeningOrdered By: Dr. Barron on 03-03-2022 Thin prep Papanicolaou smear with manual screening 11 U/L 15-37 [facility] Whole blood hemoglobin A1c/t otal hemoglobin ratio (mass fraction)Ordered By: Dr. Barron on 03-03-2022 HbA1c (Bld) [Mass fraction] 7.3 % 3.8-5.6 [facility] Comment on above: Normal < 5.7 % Predi abetic 5.7 - 6.4 % Diabetic >or= 6.5 % Please note range changes. Absolute lymphocyte counton 03-02-2022 Lymphocytes Auto (Unsp spec) [#/Vol] 0.42 10*3/uL 0.83-4.51 [facility] Work Phone: Basophil percentageOrdered B y: Dr. Prakash on 03-02-2022 Lactate [Moles/Vol] 1.5 mmol/L 0.4-2.0 [facility] Basophil percentage 5-10 SEEN /hpf 0-5 [facility] Basophil percentageon 2022 Basophils/100 WBC (Bld) 0.1 % 0-1 [facility] Work Phone: Bilirubin [Mass/Vol] 0.80 mg/dL 0.20-1.00 [facility] Work Phone: Comment on above: For patients on eltr ombopag therapy, use of Dimension [place] TBIL is not recommended. Chloride [Moles/Vol] 100 mmol/L 98-107 [facility] Work Phone: Eosinophils/100 WBC (Bld) 0.1 % 0-5 [facility] Work Phone: Glucose [Mass/Vol] 231 mg/dL 74-106 [facility] Work Phone: Comment on above: Glucose result great er than or equal to 200 mg/dLsuggests DIABETES MELLITUS per A.D.A. criteria. Lactate [Moles/Vol] 2.7 mmol/L 0.4-2.0 [facility] Work Phone: Comment on above: Critical Result(s) C alled at: 13:50:05 03/02/2022 by: Sara Chowdhury. Results read back by same. Neutrophils (Bld) [#/Vol] 21.0 10*3/uL 2.0-7.7 [facility] Work Phone: [phone] Neutrophils/100 WBC (Bld) 94.6 % 47-70 [facility] Work Phone: Potassium [Moles/Vol] 3.8 mmol/L 3.5-5.1 [facility] Work Phone: [phone] Protein [Mass/Vol] 6.4 g/dL 6.4-8.2 [facility] Work Phone: [phone] Sodium [Moles/Vol] 137 mmol/L 136-145 [facility] Work Phone: [phone] WBC (Bld) [#/Vol] 22.2 10*3/uL 4.4-11.0 [facility] Work Phone: Bilirubin Test strip Ql (U)O rdered By: Dr. Prakash on 03-02-2022 Bilirubin Ql (U) Negative Negative [facility] Blood erythrocytes count (nu mber/volume)on 03-02-2022 RBC (Bld) [#/Vol] 4.43 10*6/uL 4.2-5.4 [facility] Work Phone: Blood hemoglobin measurement (mass/volume)on 03-02-2022 Hemoglobin (Bld) [Mass/Vol] 13.2 g/dL 12.0-15.0 [facility] Work Phone: Blood lymphocytes/100 leukoc yteson 03-02-2022 Lymphocytes/100 WBC (Bld) 1.9 % 19-41 [facility] Work Phone: [phone] Blood manual differential co mment interpretation (narrative result)Ordered By: Dr. Prakash on 03-02-2022 Manual differential comment Stew (Bld) [Interp] SCANNED [facility] Comment on above: BANDS NOTED Blood monocytes/100 leukocyt eson 03-02-2022 Monocytes/100 WBC (Bld) 2.8 % 0-10 [facility] Work Phone: Blood platelet mean volumeon 03-02-2022 Platelet mean volume (Bld) [Entitic vol] 10.5 fL 6.2-12.0 [facility] Work Phone: Determination of erythrocyte mean corpuscular volume (MCV)on 03-02-2022 MCV (RBC) [Entitic vol] 88.3 fL 81-99 [facility] Work Phone: Hematocrit Auto (Bld) [Volum e fraction]on 03-02-2022 Hematocrit (Bld) [Volume fraction] 39.1 % 37-47 [facility] Work Phone: INR in Blood by Coagulation assayOrdered By: Dr. Prakash on 03-02-2022 INR Coag (Bld) [Relative time] 1.1 {INR} [facility] Influenza virus A and B and SARS-CoV-2 (COVID-19) Ag panel - Upper respiratory specimOrdered By: Dr. Prakash on 03-02-2022 SARS-CoV-2 & FLU Antigen (Rapid) Influenzae A [facility] Ketones Test strip Ql (U)Ord ered By: Dr. Prakash on 03-02-2022 Ketones Ql (U) Negative Negative [facility] Laboratory - Chemistry and C hemistry - challengeon 03-02-2022 ALP [Catalytic activity/Vol] 102 U/L 45-117 [facility] Work Phone: ALT [Catalytic activity/Vol] 16 U/L 13-56 [facility] Work Phone: CO2 [Moles/Vol] 27.0 mmol/L 21.0-32.0 [facility] Work Phone: Globulin (S) [Mass/Vol] 3.1 g/dL 2.2-4.2 [facility] Work Phone: Urea nitrogen/Creatinine [Mass ratio] 22.9 mg/mg 10-20 [facility] Work Phone: Laboratory - CoagulationOrde red By: Dr. Prakash on 03-02-2022 aPTT Coag (Bld) [Time] 26.8 s 24.1-36.2 [facility] PT Coag (PPP) [Time] 13.9 s 11.7-14.9 [facility] Laboratory - Hematology and Cell countson 03-02-2022 Erythrocyte distribution width (RBC) [Entitic vol] 43.0 fL 35.1-43.9 [facility] Work Phone: Erythrocyte distribution width (RBC) [Ratio] 13.2 % 11.6-14.6 [facility] Work Phone: Immature granulocytes/100 WBC (Bld) 0.500 % 0.0-0.9 [facility] Work Phone: [phone] Comment on above: IG% - Immature Granu locytes (promyelocytes, myelocytes and metamyelocytes) > 1% indicates that a LEFT SHIFT is Present. MCH (RBC) [Entitic mass] 29.8 pg 27.0-32.0 [facility] Work Phone: Nucleated RBC/100 WBC (Bld) [Ratio] 0 % 0-5 [facility] Work Phone: MCHC Auto (RBC) [Mass/Vol]on 03-02-2022 MCHC (RBC) [Mass/Vol] 33.8 g/dL 32-36 [facility] Work Phone: Mucus LM Ql (Urine sed)Order ed By: Dr. Prakash on 03-02-2022 Mucus Ql (Urine sed) 0 SEEN /hpf [facility] Nitrite Test strip Ql (U)Ord ered By: Dr. Prakash on 03-02-2022 Nitrite Ql (U) Positive Negative [facility] No Panel InformationOrdered By: Dr. Barron on 03-02-2022 Methicillin-Resist S.aureus DNA PCR Negative Negative [facility] No Panel Informationon 03-02 Estimated Creatinine Clearance Calc 187.31 ml/min [facility] Work Phone: Estimated GFR (MDRD) Amer 84 mL/min >60 [facility] Work Phone: Comment on above: GFR Calc Estimated GFR (MDRD) Non-Af Amer 70 mL/min >60 [facility] Work Phone: Comment on above: Non- GFR Calc Platelets bldon 03-02-2022 Platelets (Bld) [#/Vol] 216 10*3/uL 150-450 [facility] Work Phone: Protein Test strip Ql (U)Ord ered By: Dr. Prakash on 03-02-2022 Protein Ql (U) 30 mg/dl Negative [facility] Serum or plasma albumin fabiola urement (mass/volume)on 03-02-2022 Albumin [Mass/Vol] 3.3 g/dL 3.2-5.0 [facility] Work Phone: Serum or plasma albumin/glob ulin mass ratioon 03-02-2022 Albumin/Globulin [Mass ratio] 1.1 {ratio} 0.9-2.4 [facility] Work Phone: Serum or plasma calcium fabiola urement (mass/volume)on 03-02-2022 Calcium [Mass/Vol] 8.7 mg/dL 8.5-10.1 [facility] Work Phone: Serum or plasma creatinine m easurement (mass/volume)on 03-02-2022 Creatinine [Mass/Vol] 0.88 mg/dL 0.55-1.02 [facility] Work Phone: Comment on above: The validity of the calculated GFR & GFRAA in patients over 70 years has not been determined. Clinical correlation is essential. Serum or plasma urea nitroge n measurement (mass/volume)on 03-02-2022 Urea nitrogen [Mass/Vol] 20 mg/dL 7-18 [facility] Work Phone: Squamous epithelial cells de tection in urine sediment by light microscopyOrdered By: Dr. Prakash on 03-02-2022 Epithelial cells.squamous LM Ql (Urine sed) 0-5 SEEN /hpf 5-10 [facility] Staphylococcus aureus DNA de tection by probe and target amplification methodOrdered By: Dr. Barron on 03-02-2022 S. aureus DNA FIONA+probe Ql (Unsp spec) Positive Negative [facility] Thin prep Papanicolaou smear with manual screeningon 03-02-2022 Thin prep Papanicolaou smear with manual screening 7 U/L 15-37 [facility] Work Phone: Thin prep Papanicolaou smear with manual screening 10 5-15 [facility] Work Phone: Urine blood detectionOrdered By: Dr. Prakash on 03-02-2022 RBC Ql (U) Negative Negative [facility] RBC Ql (U) 0 SEEN /hpf 0-5 [facility] Urine clarityOrdered By: Dr. Prakash on 03-02-2022 Clarity (U) Sl. Cloudy Clear [facility] Urine color determinationOrd ered By: Dr. Prakash on 03-02-2022 Color (U) Claudia Yellow [facility] Urine glucose detectionOrder ed By: Dr. Prakash on 03-02-2022 Glucose Ql (U) Normal mg/dl Normal [facility] Urine leukocyte esterase det ection by dipstickOrdered By: Dr. Prakash on 03-02-2022 Leukocyte esterase Test strip Ql (U) 500 /ul Negative [facility] Urine pHOrdered By: Dr. Prakash o n 03-02-2022 pH (U) 7.0 [pH] 5.0 - 8.0 [facility] Urine sediment bacteria coun t by microscopy (number/high power field)Ordered By: Dr. Prakash on 03-02-2022 Bacteria LM.HPF (Urine sed) [#/Area] 3 /[HPF] None Seen [facility] Urine specific gravity measu rementOrdered By: Dr. Prakash on 03-02-2022 Specific gravity (U) [Rel density] 1.010 1.002-1.030 [facility] Urobilinogen Auto test strip Ql (U)Ordered By: Dr. Prakash on 03-02-2022 Urobilinogen Ql (U) Normal mg/dl Normal [facility] Basic metabolic 2000 panelon 02-15-2022 Anion gap [Moles/Vol] 14 mmol/L 9 - 18 mmol/L [facility] Calcium [Mass/Vol] 9.8 mg/dL 8.5 - 10. 2 mg/dL [facility] Chloride [Moles/Vol] 99 mmol/L 97 - 10 5 mmol/L [facility] CO2 [Moles/Vol] 29 mmol/L 22 - 30 mmol/L [facility] Creatinine [Mass/Vol] 0.67 mg/dL 0.58 - 0.96 mg/dL [facility] Estimated Glomerular Filtration Rate 99 mL/min/1.73m >=60 mL/min/1.73m [facility] Glucose [Mass/Vol] 210 mg/dL High 74 - 99 mg/dL [facility] Potassium [Moles/Vol] 4.6 mmol/L 3.7 - 5.1 mmol/L [facility] Sodium [Moles/Vol] 142 mmol/L 136 - 144 mmol/L [facility] Urea nitrogen [Mass/Vol] 22 mg/dL High 7 - 21 mg/dL [facility] CBC W Auto Differential pane l (Bld)on 02-15-2022 Basophils (Bld) [#/Vol] <0.11 k/uL [facility] Basophils/100 WBC (Bld) 0.3 % [facility] Differential cell count method Nom (Bld) Auto [facility] Eosinophils (Bld) [#/Vol] 0.10 10*3/uL <0.46 k/uL [facility] Eosinophils/100 WBC (Bld) 1.5 % [facility] Erythrocyte distribution width (RBC) [Ratio] 13.2 % 11.5 - 15.0 % [facility] Hematocrit (Bld) [Volume fraction] 42.8 % 36.0 - 46.0 % [facility] Hemoglobin (Bld) [Mass/Vol] 13.8 g/dL 11.5 - 15.5 g/dL [facility] Immature granulocytes (Bld) [#/Vol] <0.10 k/uL [facility] Immature granulocytes/100 WBC (Bld) 0.3 % [facility] Lymphocytes (Bld) [#/Vol] 1.20 10*3/uL 1.00 - 4.00 k/uL [facility] Lymphocytes/100 WBC (Bld) 18.1 % [facility] MCH (RBC) [Entitic mass] 28.9 pg 26.0 - 34.0 pg [facility] MCHC (RBC) [Mass/Vol] 32.2 g/dL 30.5 - 36.0 g/dL [facility] MCV (RBC) [Entitic vol] 89.5 fL 80.0 - 100.0 fL [facility] Monocytes (Bld) [#/Vol] 0.36 10*3/uL <0.87 k/uL [facility] Monocytes/100 WBC (Bld) 5.4 % [facility] Neutrophils (Bld) [#/Vol] 4.93 10*3/uL 1.45 - 7.50 k/uL [facility] Neutrophils/100 WBC (Bld) 74.4 % [facility] Nucleated RBC (Bld) [#/Vol] <0.01 k/uL [facility] Nucleated RBC/100 WBC (Bld) [Ratio] 0.0 /100 WBC [facility] Platelet mean volume (Bld) [Entitic vol] 10.4 fL 9.0 - 12.7 fL [facility] Platelets (Bld) [#/Vol] 270 10*3/uL 150 - 400 k/uL [facility] RBC (Bld) [#/Vol] 4.78 10*6/uL 3.90 - 5.2 0 m/uL [facility] WBC (Bld) [#/Vol] 6.63 10*3/uL 3.70 - 11. 00 k/uL [facility] Calcium.ionized [Moles/Vol]o n 02-15-2022 Calcium.ionized (Bld) [Mass/Vol] 1.25 mmol/L 1.08 - 1.30 mmol/L [facility] Calcium.ionized adjusted to pH 7.4 (Bld) [Moles/Vol] 1.21 mmol/L 1.08 - 1.30 mmol/L [facility] HIV 1+2 Ab IA Qlon 2 HIV 1 and 2 Ab IA.rapid Nom [facility] HIV 1+2 Ab+HIV1 p24 Ag IA Ql Non-Reactive Nonreactive [facility] HIV Interpretation [facility] HbA1c (Bld)on 02-15-2022 Average glucose Estimated from glycated hemoglobin (Bld) [Mass/Vol] 174 mg/dL [facility] HbA1c (Bld) [Mass fraction] 7.7 % High 4.3 - 5.6 % [facility] PTH INTACT BLDon 02-15-2022 Parathyrin.intact [Mass/Vol] 28 pg/mL 15 - 65 pg/mL [facility] TSH BLDon 02-15-2022 TSH Qn 1.330 m[IU]/L 0.270 - 4.200 mIU/L [facility] CNOVon 09-21-2021 CNOV Office Visit (PLWDMR ) -- WILTON KHAN V ([id number]) 1960 F Date Time Provider Department 09/21/21 3:30 PM KEYA APARICIO PLWDMR During your visit today, we recorded the following information about you: Temperature Pulse Respiration Blood pressure 97.3 degrees 98/minute 20/minute 131/66 Winnie Ahuja, RN 09/21/2021 3:43 PM Signed Nursing Documentation Pertinent Medical History: DM, HTN, depression, DJD, CHF, COPD, hyperparathyroidism Wound Etiology according to patient: wounds were healed for a month after going to wound center in [place]; re-occurred June 2020 unsure how they occur Patient arrived via: [email or web address] [facility]/Nursing Facility: [facility] FAX: [phone] contract administration manager: Ramya Grayson [phone] Consent captured for debridement per Keya Aparicio CNP will be good until 2021 Anticoagulant Therapy: none ACTIVE CARE PER PROVIDER: Keya Aparicio CNP WOUND #1 - 6 previously healed WOUND ASSESSMENT: Refer to Provider's Wound Assessment Note VASCULAR ASSESSMENT BY PROVIDER: N/A CHF History: yes per patient EDEMA: N/A - Wound on posterior left thigh Right foot: Right calf: Left foot : Left Calf: Other: MEASUREMENTS: N/A - wounds on posterior Right thigh Right Calf: Right Ankle: Left Calf: Left Ankle: Length: WOUND PHOTOGRAPHY: NO DEBRIDEMENT PROCEDURE BY PROVIDER: Anesthetic Used: Lido gel 2% applied per Macarena Grace RN Wound #8 Other procedure: N/A Specimen collected: N/A WOUND TREATMENT PER MD ORDER: WOUND # 7 LOCATION: posterior left thigh (NEW 08/29/21) Closed 09/21/32 WOUND # 8 LOCATION: Posterior Right Thigh (NEW 09/21/21) L: 0.9 cm x W: 1.0 cm x D: 0.1 cm DEBRIDEMENT by provider: sq Post debridement measurements: L: 1.0 cm x W: 1.0 cm x D: 0.4 cm - Cleansed with: vashe' - Applied to yoon-wound skin: skin prep - Applied to wound bed: Calcium alginate - Covered and secured with: Marcus sap 4x4 09/21/32: Threatened area back of Right Thigh L: 8.0 cm x W: 7.0 cm x D: 0 cm COMPRESSION: N/A SPECIAL NEEDS: Coordination of care - care tenders manages wound care [facility]; aid service ONLY. [facility] - AID SERVICE ONLY FAX: [phone] Emotional support N/A OR set-up N/A Sales Project Engineer N/A Incontinence needs N/A DISCHARGED in stable condition to: Home via wheelchair Global surgical period dates if applicable: N/A Plan: 1. Follow-up in the wound center with Keya in 3 weeks - if the wounds are healed, you may call and cancel appointment 2. Continue aggressive nutritional support for optimal wound healing AND frequent position changes to relieve pressure on the buttocks Avoid laying on backside Avoid sitting as much as possible Bring your chair cushion with you to your next wound center visit Home care to order wound care supplies Avoid scooting or dragging your bottom EDUCATION: The patient/family was instructed how to cleanse the wound(s). Visual demonstration on how to apply the dressing with teach back method. Signs AND symptoms of infection were reviewed: Increased redness, swelling, pain, green/yellow drainage, fever and/or chills would all need to be evaluated by a Physician. Patient received typed home-going wound care instructions and has expressed intent to comply. OTHER EDUCATION: wound care and off-loading reviewed with patient. Education performed regarding lymphedema/edema: Elevation of extremity above the heart for 30 minutes three times daily and as needed Exercise such as writing the ABC's with your toes in the air, walking and/or calf pumps Wearing compression as ordered by provider Diet controlling of sodium as instructed by provider Use of medication to help control edema. _- UNIVERSAL PROTOCOL / SAFETY CHECKLIST Procedure to be Performed: sharp debridement to posterior thigh wounds Sign In: 1520 A Moment of CARE was completed. Personnel directly involved with the procedure wore the appropriate PPE (Personal Protective Equipment). Patient/Surrogate Stated/Verified: PATIENT VERIFIED(optional for EMERGENT procedures): Patient name, Date of , Relevant allergies and The intended procedure Time Out Communication: 0569 Intended patient and procedure match the source documents. Consent documented and matches the intended procedure. Sign Out: 1600 SIGN OUT (optional for EMERGENT procedures): No specimen collected. _- Current HBOT Status: Active or Complete - see screenin (more content not included)... [facility] CNOVon 08-29-2021 CNOV Office Visit (PLWDMR ) -- WILTON KHAN V ([id number]) 1960 F Date Time Provider Department 08/29/21 10:00 AM KEYA APARICIO During your visit today, we recorded the following information about you: Temperature Pulse Blood pressure 97.7 degrees 80/minute 121/58 Keya Aparicio APRN.CNP 08/29/2021 12:14 PM Signed WOUND CENTER PROGRESS NOTE PATIENT NAME: Wilton Khan DATE OF FOLLOW UP: 08/29/2021 REASON FOR FOLLOW UP: right posterior thigh wound HISTORY OF PRESENT ILLNESS: Wilton Khan is a 61 year old y/o female w/ Hx DM, HTN, CHF, COPD, DJD, morbid obesity, who presents for wound assessment of right thigh wound. She has much difficulty with standing and ambulation d/t chronic bilat knee pain. She sits and sleeps in a recliner chair. She has a gel offloading cushion for her chair. She continues with physical therapy at home for strengthening. Pt has assistance of [facility] once a week. Her sisters help her with wound care other days needed. She reports a new wound on her left posterior thigh she noticed today. S/p parathyroidectomy 07/20/2021 Location: bilat posterior thigh Onset: June 2020, recurrent Aggravating factors: Debility, Diabetes mellitus, Immobility, Positioning and Pressure Wound etiology: Pressure Associated pain with wound: Yes, mild Relieving factors for wound pain: Positioning and Wound care Treatments: Current: Triad, Marcus SAP Past: Desitin, AANDD ointment, alginate w/ silver, Triad, Promogran PAST MEDICAL HISTORY Diagnosis Date - Abnormal glandular Papanicolaou smear of cervix 05/30/05 ABNL GLANDULAR PAP SMEAR CERVIX - Acute gastritis without mention of hemorrhage - Anxiety state, unspecified - Arrhythmia - Chronic cholecystitis - Chronic obstructive pulmonary disease (COPD) ([facility]) - Congestive heart failure ([facility]) 10/03/2011 - Diabetes ([facility]) - diabetes II 2010 - Diaphragmatic hernia without mention of obstruction or gangrene - Dysthymic disorder Depression (non-psychotic) - Esophageal reflux - Essential hypertension, benign - Generalized OA - Hyperprolactinemia ([facility]) 10/13/2005 - Localized osteoarthrosis not specified whether primary or secondary, lower leg - Major depressive disorder, recurrent episode - Mucous polyp of cervix 07/19/05 - Other and unspecified anterior pituitary hyperfunction ([facility]) 10/13/05 elevated prolactin level-was normal in 2011 - PMH - PAST MEDICAL HISTORY OF sleep apnea - PMH - PAST MEDICAL HISTORY OF sleep apnea - SVT (supraventricular tachycardia) ([facility]) - 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 - Type 2 diabetes mellitus without complication, with long-term current use of insulin ([facility]) 12/22/2013 PAST SURGICAL HISTORY Procedure Laterality Date - BIOPSY CERVIX SINGLE/MULT/EXCISION OF LESION SPX 07/19/05 endocervical polyp - COLONOSCOPY FLX DX W/COLLJ SPEC WHEN PFRMD 01/09/2012 Colonoscopy repeat 10 years - COLPOSCOPY CERVIX UPPER/ADJACENT VAGINA Colposcopy - EGD TRANSORAL BIOPSY SINGLE/MULTIPLE 01/16/07 - ESOPHAGOGASTRODUODENOSCOPY TRANSORAL DIAGNOSTIC 01/09/2012 EGD - HERNIA REPAIR HX 11/2015 ventral - HYSTEROSCOPY DX 12/17/2014 [facility] - LAPS SURG CHOLECYSTECTOMY W/CHOLANGIOGRAPHY 05/15/08 ALLERGIES ALLERGIES Allergen Reactions - Lyrica [Pregabalin] Anaphylaxis Not sure if accurate. Can take gabapentin. Patient is unsure of reaction. - Accupril [Quinapril* Intolerance dizziness - Actos [Pioglitazone] Swelling - Amlodipine Swelling Leg edema - Atenolol Swelling - Atorvastatin Intolerance Muscle cramps and weakness - Celebrex [Celecoxib] Swelling - Effexor [Venlafaxin* swelling high blood pressure - Januvia [Sitaglipti* GI Upset, Other: See Comments Patient states she couldn't eat - Metoprolol Swelling - Mobic [Meloxicam] GI Upset - Prozac [Fluoxetine * Intolerance tremor - Remeron [Mirtazapin* Rash - Risperidone Mental Status Change - Seroquel [Quetiapin* hypertension,swelling - Vancomycin Itching, Other: See Comments, Rash red all over Other reaction(s): Other: See Comments red all over - Vioxx [Rofecoxib] GI Upset - Wellbutrin [Bupropi* Intolerance nightmares CURRENT OUTPATIENT MEDICATIONS HYDROcodone-acetaminophen (NORCO) 5-325 mg per tablet Take 1 tablet by mouth twice daily as needed for pain for up to 3 days. DULoxetine (CYMBALTA) 60 mg capsule Take 1 capsule by mouth once daily. spironolactone (ALDACTONE) 50 mg tablet Take 1 tablet by mouth once daily. potassium chloride (K-TAB) 10 mEq tablet Take 1 tablet by mouth once daily. furosemide (LASIX) 80 mg tablet Take 1 tablet by mouth twice daily. ARIPiprazole (ABILIFY) 10 mg tablet Take 1 tablet by mouth once daily. pravastatin (PRAVACHOL) 20 mg tablet Take 1 tablet by mouth daily at bedtime. traZODone (DESYREL) 100 mg tablet Take 1 tablet by mouth daily at be (more content not included)... Normal [facility] CALCIUM TOTALon 07-26-2021 Calcium [Mass/Vol] 10.2 mg/dL Normal 8.5-10.5 [facility] Comment on above: Result Comment: NOTE NEW NORMAL RANGE DUE TO REAGENT CHANGE Performed By: #### L [id number] #### [facility] [address] [place] [address] PTH INTACTon 07-26-2021 PTH INTACT 13.4 PG/ML Low 14-72 [facility] Comment on above: Performed By: #### L [id number] #### [facility] [address] [phone] [facility] 07-21-2021 [facility] HNO ID: [id number] Author: Matthias Young MD Service: General Surgery Author Type: Resident Type: Discharge Summary Filed: 07/21/2021 7:01 AM Note Text: -- Attestation signed by Jean Bhagat MD at 07/29/2021 6:32 AM -- GENERAL SURGERY DISCHARGE SUMMARY PATIENT NAME: Wilton Khan ADMISSION DATE: 07/20/2021 DISCHARGE DATE: 07/21/2021 ATTENDING PHYSICIAN: Jean Bhagat MD Code Status: Not on file Highest Readmission Risk Score: 11 The 30 day readmissions risk score is derived from an internally validated risk model which evaluates patient level characteristics, utilization history, medication orders and lab results up until the day of discharge. Patients with a score of 40 or above are considered highest risk for readmission. Specific patient level drivers will be listed at the bottom of the summary. REASON FOR HOSPITALIZATION: (E21.0) Primary hyperparathyroidism (HCC) Plan: INTRAOPERATIVE PTH, INTRAOPERATIVE PTH, SURGICAL PATHOLOGY, SURGICAL PATHOLOGY OPERATIONS DURING HOSPITALIZATION: Procedure(s) (LRB): PARATHYROIDECTOMY (N/A) PROCEDURES DURING HOSPITALIZATION: No procedures performed HOSPITAL COURSE: Admitted for planned parathyroidectomy. Postoperative course uncomplicated. Calcium remains slightly elevated at discharge but overall is stable and downtrending. Well appearing Transitions of Care Critical Issues: NEW BASELINE FOR PATIENT: none LABS AND PROCEDURES PENDING AT DISCHARGE: No pending results. CONSULTING TEAMS DURING HOSPITALIZATION: None Treatment Team: Attending Provider: Jean Bhagat MD PATIENT CONDITION AT DISCHARGE: Stable DISCHARGE DISPOSITION: Home with Self Care INFORMATION PROVIDED TO PATIENT: DC instructions DIET: Resume pre-hospital diet ACTIVITY: Resume pre-hospital activity WOUND/SURGICAL SITE CARE: Leave open to air ALLERGIES Allergen Reactions - Lyrica [Pregabalin] Anaphylaxis Not sure if accurate. Can take gabapentin. Patient is unsure of reaction. - Accupril [Quinapril* Intolerance dizziness - Actos [Pioglitazone] Swelling - Amlodipine Swelling Leg edema - Atenolol Swelling - Atorvastatin Intolerance Muscle cramps and weakness - Celebrex [Celecoxib] Swelling - Effexor [Venlafaxin* swelling high blood pressure - Januvia [Sitaglipti* GI Upset, Other: See Comments Patient states she couldn't eat - Metoprolol Swelling - Mobic [Meloxicam] GI Upset - Prozac [Fluoxetine * Intolerance tremor - Remeron [Mirtazapin* Rash - Risperidone Mental Status Change - Seroquel [Quetiapin* hypertension,swelling - Vancomycin Itching, Other: See Comments, Rash red all over Other reaction(s): Other: See Comments red all over - Vioxx [Rofecoxib] GI Upset - Wellbutrin [Bupropi* Intolerance nightmares DISCHARGE MEDICATION: Current Discharge Medication List CONTINUE these medications which have NOT CHANGED DULoxetine (CYMBALTA) 60 mg Take 60 mg by mouth once daily. Qty: 90 capsule Refills: 1 Associated Diagnoses:Anxiety state spironolactone (ALDACTONE) 50 mg Take 50 mg by mouth once daily. Qty: 90 tablet Refills: 1 Associated Diagnoses:Essential hypertension, benign potassium chloride (K-TAB) 10 mEq Take 10 mEq by mouth once daily. Qty: 90 tablet Refills: 1 furosemide (LASIX) 80 mg Take 80 mg by mouth twice daily. Qty: 90 tablet Refills: 1 Associated Diagnoses:Essential hypertension, benign ARIPiprazole (ABILIFY) 10 mg Take 10 mg by mouth once daily. Qty: 90 tablet Refills: 1 HYDROcodone-acetaminophen (NORCO) 1 tablet Take 1 tablet by mouth twice daily as needed for pain. Qty: 60 tablet Refills: 0 Associated Diagnoses:DDD (degenerative disc disease), lumbar pravastatin (PRAVACHOL) 20 mg Take 20 mg by mouth daily at bedtime. Qty: 90 tablet Refills: 3 Associated Diagnoses:Mixed hyperlipidemia traZODone (DESYREL) 100 mg Take 100 mg by mouth daily at bedtime. Qty: 90 tablet Refills: 1 methocarbamol (ROBAXIN) 500 mg Take 500 mg by mouth twice daily. Qty: 60 tablet Refills: 1 Cholecalciferol (Vitamin D3) 5,000 Units Take 5,000 Units by mouth once daily. Qty: 90 capsule Refills: 3 ascorbic acid (VITAMIN C ORAL) 1 tablet Take 1 tablet by mouth once daily. nystatin (MYCOSTATIN) 1 application Apply 1 application to affected area four times daily. Qty: 60 g Refills: 1 Associated Diagnoses:Tinea corporis ibuprofen (MOTRIN) 800 mg Take 800 mg by mouth every 8 hours as needed (FOR PAIN. TAKE WITH FOOD). Qty: 30 tablet Refills: 0 metFORMIN ER (GLUCOPHAGE XR) 500 mg Take 500 mg by mouth once daily. Qty: 90 tablet Refills: 3 LANTUS SOLOSTAR U-100 INSULIN 25 Units Inject 25 Units subcutaneously twice daily. Qty: 15 Pen Refills: 3 Comments: Generic or brand: dispense product preferred (more content not included)... Normal [facility] Calcium SerPl-mCncon 022 Calcium [Mass/Vol] 10.6 mg/dL High 8.5-10.2 [facility] Comment on above: Order Comment: Speci men Type: BLOOD SPECIMEN Ordering Facility: [facility] Address: [address] [address] Performed By: #### 1 [id number] #### [facility] CLIA [id number] [address] [place] [address] [place] PTH INTACT BLDon 07-21-2021 Parathyrin.intact [Mass/Vol] 10 pg/mL Low 15-65 [facility] Comment on above: Order Comment: Speci men Type: BLOOD SPECIMEN Ordering Facility: [facility] Address: [address] [address] Performed By: #### P THI #### [facility] [id number] STATES OF [facility] ANES POSTPROC EVALon 022 ANES POSTPROC EVAL HNO ID: [id number] Author: Frederick Donahue MD Service: Anesthesiology Author Type: Anesthesiologist Type: Anesthesia Postprocedure Evaluation Filed: 07/20/2021 4:20 PM Note Text: POST ANESTHESIA EVALUATION NOTE : 1960 Procedure Summary Date: 07/20/21 Room / Location: [place] [address] / OR Anesthesia Start: 1012 Anesthesia Stop: 1225 Procedure: PARATHYROIDECTOMY (N/A Thyroid) Diagnosis: Primary hyperparathyroidism (HCC) (Primary hyperparathyroidism (HCC) [E21.0]) Surgeons: Jean Bhagat MD Responsible Provider: Frederick Donahue MD Anesthesia Type: general ASA Status: 3 Anesthesia Type: general Airway Type: ETT Last Vitals Vitals Value Taken Time BP 129/65 07/20/21 1345 Temp 36.5 ?C (97.7 ?F) 07/20/21 1345 Pulse 77 07/20/21 1345 Resp 16 07/20/21 1345 SpO2 95 % 07/20/21 1345 Post Anesthesia Patient Status Patient Evaluation: PACU. PACU/ICU Patient Condition: stable. Anticipated Disposition: inpatient floor planned admission. Neurological Status: aware and responsive. Pulmonary Status: breathing comfortably on room air Airway Control: returned to baseline unsupported. Cardiovascular Status: stable. Pain Management: clinically adequate - multimodal analgesia pain management approach Postoperative Hydration: acceptable. Intraoperative Events: no significant anesthesia events Recommendation: continue current plan of care and further care per PACU/ICU/floor team. Anesthesia Observations No Documentation SIGNATURE: Frederick Donahue MD PATIENT NAME: Wilton Khan DATE: July 20, 2021 TIME: 4:19 PM CSN: [id number] [facility] ANES PRE-OPon 07-20-2021 ANES PRE-OP HNO ID: [id number] Author: Frederick Donahue MD Service: Anesthesiology Author Type: Anesthesiologist Type: Anesthesia Preprocedure Evaluation Filed: 07/20/2021 9:52 AM Note Text: ANESTHESIOLOGY DAY OF SURGERY NOTE : 1960 Procedure Information Date/Time: 07/20/21 1015 Procedure: PARATHYROIDECTOMY (N/A Thyroid) Location: MM OR05 / MM OR Surgeons: Jean Bhagat MD Estimated body mass index is 76.95 kg/m? as calculated from the following: Height as of 07/06/21: 149.9 cm (4' 11). Weight as of 07/06/21: 172.8 kg (381 lb). Most recent hematocrit and potassium results: Hematocrit 41.7 07/06/2021 Potassium 4.3 07/06/2021 Relevant Problems ANESTHESIA (+) Obstructive sleep apnea CARDIO (+) Benign hypertensive heart disease with CHF, NYHA class 2 (HCC) (+) DVT (deep venous thrombosis) ([facility]) (+) Essential hypertension, benign (+) SVT (supraventricular tachycardia) ([facility]) ENDO (+) Type 2 diabetes mellitus with peripheral neuropathy (HCC) GI (+) Esophageal reflux -RENAL (+) Liver disease PULMONARY (+) Obstructive sleep apnea I - PHYSICAL EVALUATION AIRWAY Patient intubated: No. Tracheostomy tube not present Mallampati: III. TM distance: >3 FB. Neck ROM: full ROM without neurological symptoms. Mouth opening: adequate. Short neck: yes. Thick neck: yes DENTAL Dental findings: teeth intact. Additional exam findings: no II - ANESTHESIA PLAN ASA Score: 3 Anesthetic Plan: general Airway type: ETT NPO Status: adequate Monitoring plan: Standard ASA. Postoperative analgesic plan: parenteral or oral opioids and multimodal analgesia. Patient / Surrogate agrees to blood products: yes DNR status not reviewed with patient and/or family prior to surgery. Significant changes in the patient condition since the History and Physical, not otherwise documented in primary service progress note: no. Potential Anesthesia issues that may suggest increased risk of complications or contraindication to planned procedure: none. Vitals Value Taken Time BP 106/62 07/20/21922 Pulse 81 07/20/21922 Resp 18 07/20/21922 Temp 36.1 ?C (97 ?F) 07/20/21922 SpO2 98 % 07/20/21922 Facility-Administered Medications as of 07/20/2021 Medication Dose Route Frequency - lidocaine 10 mg/mL (1 %) 1-2 mg injection (XYLOCAINE) 0.1-0.2 mL INTRADERMAL PRN - NaCl 0.9% iv infusion 75 mL/hr INTRAVENOUS CONTINUOUS Outpatient Medications as of 07/20/2021 Medication Sig - potassium chloride (K-TAB) 10 mEq tablet Take 1 tablet by mouth once daily. - furosemide (LASIX) 80 mg tablet Take 1 tablet by mouth twice daily. - ARIPiprazole (ABILIFY) 10 mg tablet Take 1 tablet by mouth once daily. - HYDROcodone-acetaminophen (NORCO) 5-325 mg per tablet Take 1 tablet by mouth twice daily as needed for pain for up to 3 days. - pravastatin (PRAVACHOL) 20 mg tablet Take 1 tablet by mouth daily at bedtime. - traZODone (DESYREL) 100 mg tablet Take 1 tablet by mouth daily at bedtime. - methocarbamol (ROBAXIN) 500 mg tablet Take 1 tablet by mouth twice daily. - Cholecalciferol, Vitamin D3, 125 mcg (5,000 unit) cap Take 1 capsule by mouth once daily. - ascorbic acid (VITAMIN C ORAL) Take 1 tablet by mouth once daily. - nystatin (MYCOSTATIN) powder Apply 1 application to affected area four times daily. - ibuprofen (MOTRIN) 800 mg tablet Take 1 tablet by mouth every 8 hours as needed (FOR PAIN. TAKE WITH FOOD). - metFORMIN ER (GLUCOPHAGE XR) 500 mg 24 hr tablet Take 1 tablet by mouth once daily. - insulin glargine (LANTUS SOLOSTAR U-100 INSULIN) 100 unit/mL (3 mL) Inject 25 Units subcutaneously twice daily. - famotidine (PEPCID) 40 mg tablet Take 1 tablet by mouth once daily. - nystatin (MYCOSTATIN) cream Apply 1 application to affected area twice daily. - [] fluconazole (DIFLUCAN) 100 mg tablet Take 1 tablet by mouth once daily for 3 days. - Insulin Maljamar, Disposable, (BD ULTRA-FINE MADI PEN NEEDLE) 32 gauge x Use one needle for each dose. 2/day. - blood sugar diagnostic (BLOOD GLUCOSE TEST) test strip Test blood sugars up to 4 times daily as directed. Dx: Type 2 DM - Controlled E11.9 Insulin: Yes. Trumetrix brand - lancets (TRUEPLUS LANCETS) 30 gauge Test four times daily Dx: 250.02 - polyethylene glycol 3350 (MIRALAX, GLYCOLAX) 17 gram/dose powder Take 17 g by mouth once daily. (Patient taking differently: Take 17 g by mouth once daily. Prn ) - Blood-Glucose Meter monitoring kit Glucose Meter of Choice - Kit - Dx: Type 2 DM - Controlled E11.9 Use twice daily as directed I have interviewed and examined the patient. I have reviewed the medical record and/or the pre-anesthesia evaluation, pertinent labs, and test results. This contains updated information obtained within 48 hours of Surgery/Procedure. SIGNATURE: Frederick Donahue MD PATIENT NAME: Wilton Khan DATE: July 20, 2021 TIME: 9:49 AM CSN: [id number] [facility] INTRAOPERATIVE PTHon 022 INTRAOPERATIVE PTH 216 pg/mL High 15 [facility] Comment on above: Order Comment: Speci men Type: BLOOD SPECIMEN Ordering Facility: [facility] Address: [address] [place] [address] Performed By: #### R [facility] #### [facility] CLIA [id number] [address] [place] [address] OF [facility] NURSING PROGon 07-20-2021 NURSING PROG HNO ID: [id number] Author: Jayna Mathews RN Service: Nursing Author Type: Registered Nurse Type: Nursing Progress Note Filed: 07/20/2021 4:38 PM Note Text: Nursing Progress Note Patient Name: Wilton Khan Patient Location: [id number] Daily Note: Deep tissue injury to left upper posterior thigh, patient states home health care is following this at home. No dressing is present. Upper inner thigh also has bruising present. This note was completed by: Jayna Mathews [facility] OPERATIVE NOon 07-20-2021 OPERATIVE NO HNO ID: [id number] Author: Jean Bhagat MD Service: Endocrine Surgery Author Type: Physician Type: Operative Report Filed: 08/02/2021 9:42 AM Note Text: [facility] OPERATIVE REPORT ATTENDING PHYSICIAN: Jean Bhagat MD Wilton Khan [facility] DATE OF PROCEDURE: July 20, 2021 SURGEON: Jean Bhagat MD RESEARCH TEST ENGINE OPERATOR: Manisha St PA-C PREOPERATIVE DIAGNOSIS: Primary hyperparathyroidism POSTOPERATIVE DIAGNOSIS: Primary hyperparathyroidism OPERATION: parathyroid exploration; parathyroidectomy of the left upper parathyroid gland; intraoperative venous sampling for parathyroid hormone measurement; intraoperative ultrasonography. ANESTHESIA: General. Incision/Procedure Start Time: 10:43 AM Incision Close/Procedure End Time: 12:00 PM COMPLICATIONS: None. ESTIMATED BLOOD LOSS: 5 cc. SPECIMENS REMOVED: ID Type Source Tests Collected by Time Destination 1 : PRE PTH Blood BLOOD INTRAOPERATIVE PTH Jean Bhagat MD 07/20/2021 10:59 AM A : left upper parathyroid Tissue PARATHYROID GLAND LEFT SURGICAL PATHOLOGY Jean Bhagat MD 07/20/2021 11:01 AM HISTORY: Wilton Khan has primary hyperparathyroidism is being taken to the operating room for parathyroid exploration. FINDINGS: An ultrasound was performed in the operating room and the images archived. The trachea was midline. The thyroid was normal in size and echogenicity. In the left central neck was a hypoechoic structure measuring 1.32 x 0.6 x 0.8 cm that was typical in appearance for an enlarged parthyroid gland adenoma. At exploration, four parathyroid glands were identified. The left upper gland was abnormal and the remaining glands appeared normal. Pathology confirmed parathyroid tissue on frozen section examination of the excised gland. DESCRIPTION OF OPERATION: The patient was taken to the operating room, placed upon table in the supine position. After induction of general endotracheal anesthesia, a beanbag support was used to elevate the thoracic spine. The neck was gently hyperextended. Ultrasound evaluation was performed using an [employer] Alpha 6 ultrasound machine with high-frequency linear array small parts transducer. The findings were as noted above. The neck was sterilely prepped and draped. A 4 cm transverse incision was made over the level of the thyroid isthmus and carried down through the platysma. Small superior and inferior subplatysmal flaps were raised. The strap muscles were divided longitudinally in midline of the neck and beginning on the left side of the neck, the strap muscles were from the anterior surface of the thyroid gland. The thyroid lobe was medially rotated and an enlarged lef bettye parathyroid adenoma with a firm consistency was identified and partially mobilized. The gland was removed after accessing the left anterior jugular vein for a pre-excision parathyroid hormone blood sample for measurement. Fifteen minutes later, a post-excision parathyroid hormone level was obtained from the same jugular vein for measurement. Next, the neck was explored for the left lower parathyroid gland. This gland was identified in the thyrothymic ligament and was normal. We then proceeded to the contralateral neck. The strap muscles were off of the contralateral thyroid lobe. The thyroid lobe was medially rotated and the central neck space was bluntly dissected to facilitate exploration. The right upper gland was identified posterior to the upper pole of the thyroid and was normal-appearing. Next, the neck was explored for the lower parathyroid gland. This was also identified in the thyrothymic ligament and was normal. The wound was irrigated and checked for hemostasis. The strap muscles were closed with individual layers of interrupted 4 Polysorb suture. The platysma was similarly approximated. The skin and subcutaneous tissue was infiltrated with 0.5% marcaine and the skin edges were temporarily approximated with the running 3-0 Prolene suture (removed after extubation). The skin was sealed with Exofin glue and a steri-strip was placed on top. The patient tolerated the procedure well and was taken to recovery area. Dr. Jean Bhagat served as primary surgeon and was scrubbed from skin incision to beginning of incision closure. As no qualified resident was available to help with this case, Manisha St PA-C assisted with exposure, dissection, and closure. DRAINS: None. Jean Bhagat MD Endocrine Surgery [facility] SURGICAL PATHOLOGYon CASE REPORT [facility] Comment on above: Order Comment: Speci men Type: TISSUE SPECIMEN Ordering Facility: [facility] [address] [facility] [place] [address] Result Comment: Surg ica Pathology Report Case: [id number] Authorizing Provider: Jean Bhagat MD Collected: 07/20/2021 11:01 AM Ordering Location: [facility] Surgery Received: 07/20/2021 11:09 AM Pathologist: Singh Marquez MD Intraop: Singh Marquez MD Specimen: PARATHYROID GLAND LEFT, left upper parathyroid Performed By: #### S #### [facility] CLIA [id number] [place] [address] OF [facility] CLIA [id number] [facility] [address] FINAL DIAGNOSIS [facility] Comment on above: Order Comment: Speci men Type: TISSUE SPECIMEN Ordering Facility: [facility] Address: [address] [place] [address] Result Comment: Left upper parathyroid, excision: - Hypercellular parathyroid gland. [facility] 07/22/2021 Performed By: #### S #### [facility] CLIA [id number] [address] [place] [address] [place] [facility] CLIA [id number] [address] [place] [address] FINAL PERFORMING LAB [facility] Comment on above: Order Comment: Speci men Type: TISSUE SPECIMEN Ordering Facility: [facility] Address: [address] [place] [address] Result Comment: Diag nostic interpretation performed at [facility], [address] [place] [address] CLIA# [id number] Installation And Service Technician: Keisha Ni M.D. Performed By: #### S #### [facility] CLIA [id number] [address] [place] [address] [place] [facility] CLIA [id number] [address] [place] [address] OF [facility] GROSS DESCRIPTION Normal [facility] Comment on above: Order Comment: Speci men Type: TISSUE SPECIMEN Ordering Facility: [facility] Address: [address] [place] [address] Result Comment: A. P ARATHYROID GLAND LEFT. A. Received unfixed for intraoperative consultation labeled ???left upper parathyroid is a single pink-red ovoid nodule of soft tissue with pearson-yellow fatty tissue (1.5 x 1.3 x 0.5 cm; 0.595 grams). This specimen is serially sectioned and two pieces are submitted for frozen section evaluation as FSA1. The rest of the tissue is submitted in formalin for permanent sections as A2. [facility] 07/20/21 Gross examination performed at [facility], [address] [place] [address] CLIA# [id number] Performed By: #### S #### [facility] CLIA [id number] [address] [place] [address] STATES OF [facility] CLIA [id number] [address] [place] [address] [place] INTRAOPERATIVE DIAGNOSIS [facility] Comment on above: Order Comment: Speci men Type: TISSUE SPECIMEN Ordering Facility: [facility] Address: [address] [place] [address] Result Comment: A. P ARATHYROID GLAND LEFT. FSA1: Hypercellular parathyroid. (Dr. Marquez) Intraoperative diagnosis performed at [facility], [address] [place] [address] CLIA# [id number] Performed By: #### S #### [facility] CLIA [id number] [address] [place] [address] STATES OF [facility] CLIA [id number] [address] [place] [address] [place] US THYROID/PARATHYROID (POC) ENDO USE ONLYon 07-20-2021 [facility] CNOVon 07-13-2021 CNOV Office Visit (PLWDMR ) -- WILTON KHAN V ([id number]) 1960 F Date Time Provider Department 07/13/21 2:45 PM KEYA APARICIO During your visit today, we recorded the following information about you: Temperature Pulse Respiration Blood pressure 97.6 degrees 77/minute 20/minute 113/98 Winnie Ahuja RN 07/13/2021 4:03 PM Signed Nursing Documentation Pertinent Medical History: DM, HTN, depression, DJD, CHF, COPD, hyperparathyroidism Wound Etiology according to patient: wounds were healed for a month after going to wound center in [place]; re-occurred June 2020 unsure how they occur Patient arrived via: [email or web address] Home Care Company/Nursing Facility: [facility] FAX: [phone] contract administration manager: Ramya Grayson [phone] Consent captured for debridement per Keya Aparicio CNP will be good untill 11/10 Anticoagulant Therapy: none ACTIVE CARE PER PROVIDER: Keya Aparicio CNP WOUND #1 - 4 previously healed WOUND ASSESSMENT: Refer to Provider's Wound Assessment Note VASCULAR ASSESSMENT BY PROVIDER: N/A CHF History: yes per patient EDEMA: N/A - Wound on posterior right thigh Right foot: Right calf: Left foot : Left Calf: Other: MEASUREMENTS: N/A - wounds on posterior right thigh Right Calf: Right Ankle: Left Calf: Left Ankle: Length: WOUND PHOTOGRAPHY: NO DEBRIDEMENT PROCEDURE BY PROVIDER: Anesthetic Used: Lido gel 2% applied per Carmen Nuñez RN Wound # : 1 Other procedure: N/A Specimen collected: N/A WOUND TREATMENT PER MD ORDER: WOUND # 5 LOCATION: Right posterior thigh cluster - buttocks L: 0.4 cm x W: 0.4 cm D: 0.2 cm DEBRIDEMENT by provider: n/a Post debridement measurements: L: cm x W: cm x D: Cm - Cleansed with: vashe' - Applied to yoon-wound skin: Triad - Applied to wound bed: triad - Covered and secured with: Marcus sap 4x4 WOUND # 6 LOCATION: Left Posterior thigh (NEW 06/08/21) Closed 07/13/21 COMPRESSION: N/A SPECIAL NEEDS: Coordination of care - care tenders manages wound care [facility]; aid service ONLY. [facility] Care - AID SERVICE ONLY FAX: [phone] Emotional support N/A OR set-up N/A Sales Project Engineer N/A Incontinence needs N/A DISCHARGED in stable condition to: Home via wheelchair Global surgical period dates if applicable: N/A Plan: 1. Follow-up in the wound center with Keya Aparicio CNP in 2 weeks 2. Continue aggressive nutritional support for optimal wound healing AND frequent position changes to relieve pressure on the buttocks Avoid laying on backside Avoid sitting as much as possible Home Care to please order island dressings 6x7 excel sap Bring your chair cushion with you to your next wound center visit Home care to order wound care supplies EDUCATION: The patient/family was instructed how to cleanse the wound(s). Visual demonstration on how to apply the dressing with teach back method. Signs AND symptoms of infection were reviewed: Increased redness, swelling, pain, green/yellow drainage, fever and/or chills would all need to be evaluated by a Physician. Patient received typed home-going wound care instructions and has expressed intent to comply. OTHER EDUCATION: Education performed regarding lymphedema/edema: Elevation of extremity above the heart for 30 minutes three times daily and as needed Exercise such as writing the ABC's with your toes in the air, walking and/or calf pumps Wearing compression as ordered by provider Diet controlling of sodium as instructed by provider Use of medication to help control edema. UNIVERSAL PROTOCOL / SAFETY CHECKLIST Procedure to be Performed: sharp debridement to right posterior upper thigh/buttock NA Current HBOT Status: Active or Complete - see screening below WOUND CENTER HYPERBARIC OXYGEN THERAPY SCREENING 1. Is the patient diabetic? (If No, skip to question 5) Yes 2. Does the patient have a lower extremity wound? YES 3. Is there exposed/involved tendon or bone? No 4. Has the wound been present for 30 days? no If Yes to ALL questions above, consult the Hyperbaric Center 5. Has the patient been diagnosed with osteomyelitis? No 6. Has the patient had a previous skin graft or flap at the wound? No 7. Has the patient had or been offered vascular intervention/evaluation? No 8. Does the patient have a wound at an amputation site? No 9. Has the patient had radiation therapy at the site of the problem? No If Yes to ANY of questions 5-9, consult the Hyperbaric Center Winnie Ahuja RN 07/13/2021 4:03 PM Addendum WOUND CARE INSTRUCTIONS- Wilton Khan Wound location: pos (more content not included)... Normal [facility] HGB A1Con 07-07-2021 Average glucose Estimated from glycated hemoglobin (Bld) [Mass/Vol] 171 mg/dL [facility] HbA1c (Bld) [Mass fraction] 7.6 % High 4.3 - 5.6 % [facility] CBC W Auto Differential pane l (Bld)on 07-06-2021 Abs Immature Gran <0.03 <0.10 k/uL [facility] Basophils (Bld) [#/Vol] 10*3/uL <0.11 k/uL [facility] Basophils/100 WBC (Bld) 0.3 % [facility] Differential cell count method Nom (Bld) Auto [facility] Eosinophils (Bld) [#/Vol] 0.11 10*3/uL <0.46 k/uL [facility] Eosinophils/100 WBC (Bld) 1.6 % [facility] Erythrocyte distribution width (RBC) [Ratio] 12.9 % 11.5 - 15.0 % [facility] Hematocrit (Bld) [Volume fraction] 41.7 % 36.0 - 46.0 % [facility] Hemoglobin (Bld) [Mass/Vol] 13.9 g/dL 11.5 - 15.5 g/dL [facility] Immature Gran % 0.3 % [facility] Lymphocytes (Bld) [#/Vol] 1.27 10*3/uL 1.00 - 4.00 k/uL [facility] Lymphocytes/100 WBC (Bld) 17.9 % [facility] MCH (RBC) [Entitic mass] 29.3 pg 26.0 - 34.0 pg [facility] MCHC (RBC) [Mass/Vol] 33.3 g/dL 30.5 - 36.0 g/dL [facility] MCV (RBC) [Entitic vol] 87.8 fL 80.0 - 100.0 fL [facility] Monocytes (Bld) [#/Vol] 0.42 10*3/uL <0.87 k/uL [facility] Monocytes/100 WBC (Bld) 5.9 % [facility] Neutrophils (Bld) [#/Vol] 5.25 10*3/uL 1.45 - 7.50 k/uL [facility] Neutrophils/100 WBC (Bld) 74.0 % [facility] Nucleated RBC (Bld) [#/Vol] 10*3/uL <0.01 k/uL [facility] Nucleated RBC/100 WBC (Bld) [Ratio] 0.0 /100 WBC [facility] Platelet mean volume (Bld) [Entitic vol] 10.6 fL 9.0 - 12.7 fL [facility] Platelets (Bld) [#/Vol] 218 10*3/uL 150 - 400 k/uL [facility] RBC (Bld) [#/Vol] 4.75 10*6/uL 3.90 - 5.2 0 m/uL [facility] WBC (Bld) [#/Vol] 7.09 10*3/uL 3.70 - 11. 00 k/uL [facility] Comprehensive metabolic 2000 panelon 07-06-2021 Albumin [Mass/Vol] 4.4 g/dL 3.9 - 4.9 g/dL [facility] ALP [Catalytic activity/Vol] 129 U/L High 34 - 123 U/L [facility] ALT [Catalytic activity/Vol] 11 U/L 7 - 38 U/L [facility] Anion gap [Moles/Vol] 9 mmol/L 9 - 18 mmol/L [facility] AST [Catalytic activity/Vol] 12 U/L Low 13 - 35 U/L [facility] Bilirubin [Mass/Vol] 0.4 mg/dL 0.2 - 1 .3 mg/dL [facility] Calcium [Mass/Vol] 11.4 mg/dL High 8.5 - 10. 2 mg/dL [facility] Chloride [Moles/Vol] 99 mmol/L 97 - 10 5 mmol/L [facility] CO2 [Moles/Vol] 31 mmol/L High 22 - 30 mmol/L [facility] Creatinine [Mass/Vol] 0.66 mg/dL 0.58 - 0.96 mg/dL [facility] Estimated Glomerular Filtration Rate 100 mL/min/1.73m >=60 mL/min/1.73m [facility] Glucose [Mass/Vol] 211 mg/dL High 74 - 99 mg/dL [facility] Potassium [Moles/Vol] 4.3 mmol/L 3.7 - 5.1 mmol/L [facility] Protein [Mass/Vol] 6.6 g/dL 6.3 - 8.0 g/dL [facility] Sodium [Moles/Vol] 139 mmol/L 136 - 144 mmol/L [facility] Urea nitrogen [Mass/Vol] 18 mg/dL 7 - 21 mg/dL [facility] CNOVon 06-08-2021 CNOV Office Visit (PLWDMR ) -- WILTON KHAN V ([id number]) 1960 F Date Time Provider Department 06/08/21 10:00 AM KEYA APARICIO PLWDMR During your visit today, we recorded the following information about you: Temperature Pulse Respiration Blood pressure 97.5 degrees 87/minute 20/minute 127/72 Winnie Ahuja RN 06/08/2021 10:18 AM Signed Nursing Documentation Pertinent Medical History: DM, HTN, depression, DJD, CHF, COPD, hyperparathyroidism Wound Etiology according to patient: wounds were healed for a month after going to wound center in [place]; re-occurred June 2020 unsure how they occur Patient arrived via: wheelchair Home Care Company/Nursing Facility: [facility] FAX: [phone] contract administration manager: Ramya Grayson [phone] Consent captured for debridement per Keya Aparicio CNP will be good untill 11/10 Anticoagulant Therapy: none ACTIVE CARE PER PROVIDER: Keya Aparicio CNP WOUND #1 - 4 previously healed WOUND ASSESSMENT: Refer to Provider's Wound Assessment Note VASCULAR ASSESSMENT BY PROVIDER: N/A CHF History: yes per patient EDEMA: N/A - Wound on posterior right thigh Right foot: Right calf: Left foot : Left Calf: Other: MEASUREMENTS: N/A - wounds on posterior right thigh Right Calf: Right Ankle: Left Calf: Left Ankle: Length: WOUND PHOTOGRAPHY: NO DEBRIDEMENT PROCEDURE BY PROVIDER: Anesthetic Used: Lido gel 2% applied per Macarena SALCIDO Wound # : 1 Other procedure: N/A Specimen collected: N/A WOUND TREATMENT PER MD ORDER: WOUND # 5 LOCATION: Right posterior thigh cluster - buttocks L: 0.5 cm x W: 0.5 cm D: 0.2 cm DEBRIDEMENT by provider: sq Post debridement measurements: L: 0.5 cm x W: 0.4 cm x D: 0.3 Cm red area Blanching - soft area 06/08/21 L: 5.5 cm x W: 7.5 cm - Cleansed with: vashe' - Applied to yoon-wound skin: Triad - Applied to wound bed: triad - Covered and secured with: WOUND # LOCATION: Left Posterior thigh (NEW 06/08/21) L: 0.2 cm x W: 0.2 cm x D: 0.1 cm DEBRIDEMENT by provider: sq Post debridement measurements: L: 0.3 cm x W: 0.3 cm x D: 0.1 cm - Cleansed with: Saline, Vashe' wash - Applied to yoon-wound skin: Triad - Applied to wound bed: triad - Covered and secured with: Marcus SAP 6x7 - Other: n/a COMPRESSION: N/A SPECIAL NEEDS: Coordination of care - care tenders manages wound care [facility]; aid service ONLY. [facility] Care - AID SERVICE ONLY FAX: [phone] Emotional support N/A OR set-up N/A Sales Project Engineer N/A Incontinence needs N/A DISCHARGED in stable condition to: Home via wheelchair Global surgical period dates if applicable: N/A Plan: 1. Follow-up in the wound center with Keya Aparicio CNP in 2 weeks 2. Continue aggressive nutritional support for optimal wound healing AND frequent position changes to relieve pressure on the buttocks Avoid laying on backside Avoid sitting as much as possible Home Care to please order island dressings 6x7 excel sap Bring your chair cushion with you to your next wound center visit EDUCATION: The patient/family was instructed how to cleanse the wound(s). Visual demonstration on how to apply the dressing with teach back method. Signs AND symptoms of infection were reviewed: Increased redness, swelling, pain, green/yellow drainage, fever and/or chills would all need to be evaluated by a Physician. Patient received typed home-going wound care instructions and has expressed intent to comply. OTHER EDUCATION: Education performed regarding lymphedema/edema: Elevation of extremity above the heart for 30 minutes three times daily and as needed Exercise such as writing the ABC's with your toes in the air, walking and/or calf pumps Wearing compression as ordered by provider Diet controlling of sodium as instructed by provider Use of medication to help control edema. UNIVERSAL PROTOCOL / SAFETY CHECKLIST Procedure to be Performed: sharp debridement to right posterior upper thigh/buttock NA Current HBOT Status: Active or Complete - see screening below WOUND CENTER HYPERBARIC OXYGEN THERAPY SCREENING 1. Is the patient diabetic? (If No, skip to question 5) Yes 2. Does the patient have a lower extremity wound? YES 3. Is there exposed/involved tendon or bone? No 4. Has the wound been present for 30 days? no If Yes to ALL questions above, consult the Hyperbaric Center 5. Has the patient been diagnosed with osteomyelitis? No 6. Has the patient had a previous skin graft or flap at the wound? No 7. Has the patient had or been offered vascular intervention/evaluation? No 8. Does the p (more content not included)... [facility] 05-25-2021 [facility] Office Visit (MICHELINEWDMR ) -- WILTON KHAN V ([id number]) 1960 F Date Time Provider Department 05/25/21 10:00 AM KEAY APARICIO During your visit today, we recorded the following information about you: Temperature Pulse Blood pressure 97.3 degrees 82/minute 123/80 Keya Aparicio APRN.CNP 05/25/2021 12:05 PM Signed WOUND CENTER PROGRESS NOTE PATIENT NAME: Wilton Khan DATE OF FOLLOW UP: 05/25/2021 REASON FOR FOLLOW UP: right posterior thigh wound HISTORY OF PRESENT ILLNESS: Wilton Khan is a 61 year old y/o female w/ Hx DM, HTN, CHF, COPD, DJD, morbid obesity, who presents for wound assessment of new right posterior thigh wounds. She states the wounds have been present for about 3 weeks. She has been using a mixture of AANDD ointment and Desitin on the wounds, but they have not improved. She continues to have much difficulty with standing and ambulation d/t chronic bilat knee pain. She sits and sleeps in a recliner chair. She has a gel offloading cushion for her chair. She continues with physical therapy at home for strengthening. She has assistance of [facility] once a week. Location: right posterior thigh Onset: June 2020 Aggravating factors: Debility, Diabetes mellitus, Immobility, Positioning and Pressure Wound etiology: Pressure Associated pain with wound: Yes Relieving factors for wound pain: Positioning and Wound care Treatments: Current: Triad, Marcus SAP Past: Desitin, AANDD ointment, alginate w/ silver, Triad, Promogran PAST MEDICAL HISTORY Diagnosis Date - Abnormal glandular Papanicolaou smear of cervix 05/30/05 ABNL GLANDULAR PAP SMEAR CERVIX - Acute gastritis without mention of hemorrhage - Anxiety state, unspecified - Arrhythmia - Chronic cholecystitis - Chronic obstructive pulmonary disease (COPD) ([facility]) - Congestive heart failure ([facility]) 10/03/2011 - Diabetes ([facility]) - diabetes II 2010 - Diaphragmatic hernia without mention of obstruction or gangrene - Dysthymic disorder Depression (non-psychotic) - Esophageal reflux - Essential hypertension, benign - Generalized OA - Hyperprolactinemia ([facility]) 10/13/2005 - Localized osteoarthrosis not specified whether primary or secondary, lower leg - Major depressive disorder, recurrent episode - Mucous polyp of cervix 07/19/05 - Other and unspecified anterior pituitary hyperfunction ([facility]) 10/13/05 elevated prolactin level-was normal in 2011 - PMH - PAST MEDICAL HISTORY OF sleep apnea - PMH - PAST MEDICAL HISTORY OF sleep apnea - SVT (supraventricular tachycardia) ([facility]) - 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 - Type 2 diabetes mellitus without complication, with long-term current use of insulin ([facility]) 12/22/2013 PAST SURGICAL HISTORY Procedure Laterality Date - BIOPSY CERVIX SINGLE/MULT/EXCISION OF LESION SPX 07/19/05 endocervical polyp - COLONOSCOPY FLX DX W/COLLJ SPEC WHEN PFRMD 01/09/2012 Colonoscopy repeat 10 years - COLPOSCOPY CERVIX UPPER/ADJACENT VAGINA Colposcopy - EGD TRANSORAL BIOPSY SINGLE/MULTIPLE 01/16/07 - ESOPHAGOGASTRODUODENOSCOPY TRANSORAL DIAGNOSTIC 01/09/2012 EGD - HERNIA REPAIR HX 11/2015 ventral - HYSTEROSCOPY DX 12/17/2014 DANTX - LAPS SURG CHOLECYSTECTOMY W/CHOLANGIOGRAPHY 05/15/08 ALLERGIES ALLERGIES Allergen Reactions - Lyrica [Pregabalin] Anaphylaxis Not sure if accurate. Can take gabapentin. Patient is unsure of reaction. - Accupril [Quinapril* Intolerance dizziness - Actos [Pioglitazone] Swelling - Amlodipine Swelling Leg edema - Atenolol Swelling - Atorvastatin Intolerance Muscle cramps and weakness - Celebrex [Celecoxib] Swelling - Effexor [Venlafaxin* swelling high blood pressure - Januvia [Sitaglipti* GI Upset, Other: See Comments Patient states she couldn't eat - Metoprolol Swelling - Mobic [Meloxicam] GI Upset - Prozac [Fluoxetine * Intolerance tremor - Remeron [Mirtazapin* Rash - Risperidone Mental Status Change - Seroquel [Quetiapin* hypertension,swelling - Vancomycin Itching, Other: See Comments, Rash red all over Other reaction(s): Other: See Comments red all over - Vioxx [Rofecoxib] GI Upset - Wellbutrin [Bupropi* Intolerance nightmares CURRENT OUTPATIENT MEDICATIONS pravastatin (PRAVACHOL) 20 mg tablet Take 1 tablet by mouth daily at bedtime. HYDROcodone-acetaminophen (NORCO) 5-325 mg per tablet Take 1 tablet by mouth twice daily as needed for pain for up to 3 days. potassium chloride (K-TAB) 10 mEq tablet Take 1 tablet by mouth once daily. traZODone (DESYREL) 100 mg tablet Take 1 tablet by mouth daily at bedtime. methocarbamol (ROBAXIN) 500 mg tablet Take 1 tablet by mouth twice daily. Cholecalciferol, Vitamin D3, 125 mcg (5,000 unit) cap Take 1 capsule by mouth once daily. ascorbic acid (VITAMIN C ORAL) Take 1 tablet by mouth once daily. nystatin (MYCOSTATIN) powder Apply (more content not included)... [facility] Office Visit (PLWDMR ) -- WILTON KHAN V ([id number]) 1960 F Date Time Provider Department 05/11/21 10:00 AM KEYA APARICIO PLWDMR During your visit today, we recorded the following information about you: Temperature Pulse Respiration Blood pressure 96.9 degrees 74/minute 20/minute 144/86 Winnie Ahuja RN 05/11/2021 10:18 AM Signed Nursing Documentation Pertinent Medical History: DM, HTN, depression, DJD, CHF, COPD, hyyperparathyroidism Wound Etiology according to patient: wounds were healed for a month after going to wound center in [place]; re-occurred June 2020 unsure how they occur Patient arrived via: [email or web address]/Nursing Facility: [facility] FAX: [phone] contract administration manager: Ramya Grayson [phone] Consent captured for debridement per Keya Aparicio CNP will be good till 11/10 Anticoagulant Therapy: none ACTIVE CARE PER PROVIDER: Keya Aparicio CNP WOUND #1 - 4 previously healed WOUND ASSESSMENT: Refer to Provider's Wound Assessment Note VASCULAR ASSESSMENT BY PROVIDER: N/A CHF History: yes per patient EDEMA: N/A - Wound on posterior right thigh Right foot: Right calf: Left foot : Left Calf: Other: MEASUREMENTS: N/A - wounds on posterior right thigh Right Calf: Right Ankle: Left Calf: Left Ankle: Length: WOUND PHOTOGRAPHY: NO DEBRIDEMENT PROCEDURE BY PROVIDER: Anesthetic Used: Lido gel 2% applied per Christina Tran RN Wound # : 1 Other procedure: silver nitrate Specimen collected: N/A WOUND TREATMENT PER MD ORDER: WOUND # 5 LOCATION: Right posterior thigh cluster buttocks L: 1.0 cm x W: 1.0 cm D: 0.1 cm DEBRIDEMENT by provider: sq Post Debridement by provider: L: 1.0 cm x W: 1.0 cm x D: 0.2 cm Undermining [id number]: 0.1 cm - Cleansed with: Saline, Vashe' - Applied to yoon-wound skin: skin prep - Applied to wound bed: calcium alginate - Covered and secured with: excel SAP 6x7 - Other: n/a [facility] Care - AID SERVICE ONLY FAX: [phone] COMPRESSION: N/A SPECIAL NEEDS: Coordination of care - care tenders manages wound care [facility]; aid service ONLY Emotional support N/A OR set-up N/A Sales Project Engineer N/A Incontinence needs N/A DISCHARGED in stable condition to: Home via wheelchair Global surgical period dates if applicable: N/A Plan: Follow-up in the wound center with Keya 2 weeks Continue aggressive nutritional support for optimal wound healing AND frequent position changes to relieve pressure on the buttocks Bring seat cushion for Keya to look at next visit EDUCATION: The patient/family was instructed how to cleanse the wound(s). Visual demonstration on how to apply the dressing with teach back method. Signs AND symptoms of infection were reviewed: Increased redness, swelling, pain, green/yellow drainage, fever and/or chills would all need to be evaluated by a Physician. Patient received typed home-going wound care instructions and has expressed intent to comply. OTHER EDUCATION: Keya discussed home health care currently using; increasing nursing visits to change dressings; amount of drainage; seat cushion she is using Education performed regarding lymphedema/edema: Elevation of extremity above the heart for 30 minutes three times daily and as needed Exercise such as writing the ABC's with your toes in the air, walking and/or calf pumps Wearing compression as ordered by provider Diet controlling of sodium as instructed by provider Use of medication to help control edema. UNIVERSAL PROTOCOL / SAFETY CHECKLIST Procedure to be Performed: sharp debridement to right posterior upper thigh/buttock Sign In: A Moment of CARE was completed. Personnel directly involved with the procedure wore the appropriate PPE (Personal Protective Equipment). No special equipment needed. Patient/Surrogate Stated/Verified: PATIENT VERIFIED(optional for EMERGENT procedures): Patient name, Date of , Relevant allergies and The intended procedure Time Out Communication: Intended patient and procedure match the source documents. Consent documented and matches the intended procedure. No implant(s) inserted. Sign Out: SIGN OUT (optional for EMERGENT procedures): Post-procedure follow-up management communicated and Plan of Care Visit completed when applicable. Winnie Ahuja RN Current HBOT Status: Active or Complete - see screening below WOUND CENTER HYPERBARIC OXYGEN THERAPY SCREENING 1. Is the patient diabetic? (If No, skip to question 5) Yes 2. Does the patient have a lower extremity wound? YES 3. Is there exposed/ (more content not included)... Normal [facility] 04-27-2021 [facility] Office Visit (PLWDMR ) -- WILTON KHAN V ([id number]) 1960 F Date Time Provider Department 04/27/21 8:00 AM KEYA APARICIO PLWDMR During your visit today, we recorded the following information about you: Temperature Pulse Respiration Blood pressure 96.6 degrees 77/minute 20/minute 118/65 Winnie Ahuja RN 04/27/2021 8:34 AM Signed Nursing Documentation Pertinent Medical History: DM, HTN, depression, DJD, CHF, COPD, hyyperparathyroidism Wound Etiology according to patient: wounds were healed for a month after going to wound center in [place]; re-occurred June 2020 unsure how they occur Patient arrived via: wheelchair Home Care Company/Nursing Facility: [facility] FAX: [phone] contract administration manager: Ramya Grayson [phone] Consent captured for debridement per Keya Aparicio CNP will be good till 11/10 Anticoagulant Therapy: none ACTIVE CARE PER PROVIDER: Keya Aparicio CNP WOUND #1 - 4 previously healed WOUND ASSESSMENT: Refer to Provider's Wound Assessment Note VASCULAR ASSESSMENT BY PROVIDER: N/A CHF History: yes per patient EDEMA: N/A - Wound on posterior right thigh Right foot: Right calf: Left foot : Left Calf: Other: MEASUREMENTS: N/A - wounds on posterior right thigh Right Calf: Right Ankle: Left Calf: Left Ankle: Length: WOUND PHOTOGRAPHY: NO DEBRIDEMENT PROCEDURE BY PROVIDER: Anesthetic Used: Lido gel 2% applied per Babs Gutierrez RN Wound # : 1 Other procedure: N/A Specimen collected: N/A WOUND TREATMENT PER MD ORDER: WOUND # 5 LOCATION: Right posterior thigh cluster buttocks L: 4.5 cm x W: 5.5 cm D: 0.2 cm DEBRIDEMENT 10% : sq Post Debridement by provider: L: 5.0 cm x W: 5.5 cm x D: 0.3 cm - Cleansed with: Vashe' - Applied to yoon-wound skin: skin prep - Applied to wound bed: calcium alginate - Covered and secured with: excel SAP 6x7 - Other: n/a [facility] Care - AID SERVICE ONLY FAX: [phone] COMPRESSION: N/A SPECIAL NEEDS: Coordination of care - care tenders manages wound care [facility]; aid service ONLY Emotional support N/A OR set-up N/A Sales Project Engineer N/A Incontinence needs N/A DISCHARGED in stable condition to: Home via wheelchair Global surgical period dates if applicable: N/A Plan: Follow-up in the wound center with Keya 2 weeks Continue aggressive nutritional support for optimal wound healing AND frequent position changes to relieve pressure on the buttocks Bring seat cushion for Keya to look at next visit Wound center will call [employer] to determine if they will order supplies EDUCATION: The patient/family was instructed how to cleanse the wound(s). Visual demonstration on how to apply the dressing with teach back method. Signs AND symptoms of infection were reviewed: Increased redness, swelling, pain, green/yellow drainage, fever and/or chills would all need to be evaluated by a Physician. Patient received typed home-going wound care instructions and has expressed intent to comply. OTHER EDUCATION: Keya discussed home health care currently using; increasing nursing visits to change dressings; amount of drainage; seat cushion she is using Education performed regarding lymphedema/edema: Elevation of extremity above the heart for 30 minutes three times daily and as needed Exercise such as writing the ABC's with your toes in the air, walking and/or calf pumps Wearing compression as ordered by provider Diet controlling of sodium as instructed by provider Use of medication to help control edema. UNIVERSAL PROTOCOL / SAFETY CHECKLIST Procedure to be Performed: sharp debridement to right posterior upper thigh/buttock Sign In: 0800 A Moment of CARE was completed. Personnel directly involved with the procedure wore the appropriate PPE (Personal Protective Equipment). No special equipment needed. Patient/Surrogate Stated/Verified: PATIENT VERIFIED(optional for EMERGENT procedures): Patient name, Date of , Relevant allergies and The intended procedure Time Out Communication: 0825 Intended patient and procedure match the source documents. Consent documented and matches the intended procedure. No implant(s) inserted. Sign Out: 0835 SIGN OUT (optional for EMERGENT procedures): Post-procedure follow-up management communicated and Plan of Care Visit completed when applicable. Winnie Ahuja RN Current HBOT Status: Active or Complete - see screening below WOUND CENTER HYPERBARIC OXYGEN THERAPY SCREENING 1. Is the patient diabetic? (If No, skip to question 5) Yes 2. Does the patient have a lower extremity wound? (more content not included)... Normal [facility] CBC W/DIFFon 04-22-2021 BASO ABS 0.00 K/CU MM Normal 0-0.2 [facility] Comment on above: Performed By: #### L [id number] #### [facility] [address] [place] [address] Basophils/100 WBC (Bld) 0.4 % Normal 0-2 [facility] Comment on above: Performed By: #### L [id number] #### [facility] [address] [place] [address] EOS ABS 0.10 K/CU MM Normal 0-0.5 [facility] Comment on above: Performed By: #### L [id number] #### [facility] [address] [place] [address] Eosinophils/100 WBC (Bld) 0.9 % Normal 0-5 [facility] Comment on above: Performed By: #### L 200.42565 #### [facility] [address] [place] [address] Erythrocyte distribution width (RBC) [Ratio] 14.7 % High 11-14.5 [facility] Comment on above: Performed By: #### L [id number] #### [facility] [address] [place] [address] Hematocrit (Bld) [Volume fraction] 38.0 % Normal 35.0-47.0 [facility] Comment on above: Performed By: #### L [id number] #### [facility] [address] [place] [address] Hemoglobin (Bld) [Mass/Vol] 12.4 g/dL Normal 11.5-15.5 [facility] Comment on above: Performed By: #### L [id number] #### [facility] [address] [place] [address] IMMATR GRAN ABS 0.10 K/CU MM Normal Less than 2 [facility] Comment on above: Performed By: #### L 200.58142 #### [facility] [address] [place] [address] IMMATURE GRAN % 0.9 % Normal Less than 2 [facility] Comment on above: Performed By: #### L 200.93671 #### [facility] [address] [place] [address]# [phone] LYMPH ABS 1.40 K/CU MM Normal 0.9-4.4 [facility] Comment on above: Performed By: #### L [id number] #### [facility] [address] [place] [address] Lymphocytes/100 WBC (Bld) 25.4 % Normal 20-40 [facility] Comment on above: Performed By: #### L 200.12748 #### [facility] [address] [place] [address] MCHC (RBC) [Mass/Vol] 32.6 g/dL Normal 32.0-36.0 [facility] Comment on above: Performed By: #### L 200.41724 #### [facility] [address] [place] [address] MCV (RBC) [Entitic vol] 90.5 fL Normal 80.0-99.0 [facility] Comment on above: Performed By: #### L 200.21438 #### [facility] [address] [place] [address] MONO ABS 0.40 K/CU MM Normal 0.1-1.1 [facility] Comment on above: Performed By: #### L [id number] #### [facility] [address] [place] [address] Monocytes/100 WBC (Bld) 6.9 % Normal 2-10 [facility] Comment on above: Performed By: #### L [id number] #### [facility] [address] [place] [address] NEUTROPHIL ABS 3.70 K/CU MM Normal 2.0-8.3 [facility] Comment on above: Performed By: #### L 200.59215 #### [facility] [address] [place] [address] Neutrophils/100 WBC (Bld) 65.5 % Normal 45-75 [facility] Comment on above: Performed By: #### L 200.37669 #### [facility] [address] [place] [address] Nucleated RBC/100 WBC (Bld) [Ratio] 0.0 % Normal Less than 1 [facility] Comment on above: Performed By: #### L [id number] #### [facility] [address] [place], [place] [id number] Platelet mean volume (Bld) [Entitic vol] 10.9 fL Normal 9.4-12.4 [facility] Comment on above: Performed By: #### L 200.32244 #### [facility] [address] [place] [address] PLT 359 K/CU MM Normal 150-450 [facility] Comment on above: Performed By: #### L [id number] #### [facility] [address] [place], [place] [address] RBC 4.20 M/CU MM Normal 3.90-5.30 [facility] Comment on above: Performed By: #### L 200.66285 #### [facility] [address] [place] [address] WBC 5.7 K/CUMM Normal 4.5-11.0 [facility] Comment on above: Performed By: #### L 200.10183 #### [facility] [address] [place] [address] XR KNEE SURVEY ARTHRITIS 1V AP BILATon 04-20-2021 [facility] CNOVon 04-13-2021 [facility] Office Visit (PLWDMR ) -- WILTON KHAN V ([id number]) 1960 F Date Time Provider Department 04/13/21 8:00 AM KEYA APARICIO PLWDMR During your visit today, we recorded the following information about you: Temperature Pulse Blood pressure 97.4 degrees 79/minute 118/63 Edith Coates, LOLY 04/13/2021 8:55 AM Addendum Nursing Documentation Pertinent Medical History: DM, HTN, depression, DJD, CHF, COPD, hyyperparathyroidism Wound Etiology according to patient: wounds were healed for a month after going to wound center in [place]; re-occurred June 2020 unsure how they occur Patient arrived via: [email or web address] [facility] Company/Nursing Facility: [facility] FAX: [phone] contract administration manager: Ramya Grayson [phone] Consent captured for debridement per (Provider) and good until Anticoagulant Therapy: none ACTIVE CARE PER PROVIDER: Keya Aparicio CNP WOUND #1 LOCATION: Posterior right thigh proximal Split into 2 wounds 12/09/20: #1A LOCATION: Posterior right thigh superior closed 01/12/21 #1B LOCATION: Posterior right thigh inferior closed 01/12/21 WOUND #2 LOCATION: Posterior right thigh mid/medial Closed 01/28/21 WOUND #3 LOCATION: Posterior right thigh distal closed 01/12/21 Wound # 4 LOCATION: Left Posterior Thigh 01/12/21 Closed 01/28/21 WOUND ASSESSMENT: Refer to Provider's Wound Assessment Note VASCULAR ASSESSMENT BY PROVIDER: N/A CHF History: yes per patient EDEMA: N/A - Wound on posterior right thigh Right foot: Right calf: Left foot : Left Calf: Other: MEASUREMENTS: N/A - wounds on posterior right thigh Right Calf: Right Ankle: Left Calf: Left Ankle: Length: WOUND PHOTOGRAPHY: NO DEBRIDEMENT PROCEDURE BY PROVIDER: Anesthetic Used: N/A Wound # : N/A Other procedure: N/A Specimen collected: N/A WOUND TREATMENT PER MD ORDER: WOUND # 5 LOCATION: Right posterior thigh cluster L: 5.0 cm x W: 6.0 cm x D: 0.2 cm DEBRIDEMENT: n/a - Cleansed with: Vashe' - Applied to yoon-wound skin: skin prep, Triad cream - Applied to wound bed: Triad cream - Covered and secured with: excel SAP - Other: n/a COMPRESSION: N/A SPECIAL NEEDS: Coordination of care - [facility]; fax: [phone] Emotional support N/A OR set-up N/A Sales Project Engineer N/A Incontinence needs N/A DISCHARGED in stable condition to: Home via wheelchair Global surgical period dates if applicable: N/A Plan: Follow-up in the wound center with Keya 2 weeks Continue aggressive nutritional support for optimal wound healing AND frequent position changes to relieve pressure on the buttocks Bring seat cushion for Keya to look at next visit Wound center will call [employer] to determine if they will order supplies EDUCATION: The patient/family was instructed how to cleanse the wound(s). Visual demonstration on how to apply the dressing with teach back method. Signs AND symptoms of infection were reviewed: Increased redness, swelling, pain, green/yellow drainage, fever and/or chills would all need to be evaluated by a Physician. Patient received typed home-going wound care instructions and has expressed intent to comply. OTHER EDUCATION: Keya discussed home health care currently using; increasing nursing visits to change dressings; amount of drainage; seat cushion she is using Education performed regarding lymphedema/edema: Elevation of extremity above the heart for 30 minutes three times daily and as needed Exercise such as writing the ABC's with your toes in the air, walking and/or calf pumps Wearing compression as ordered by provider Diet controlling of sodium as instructed by provider Use of medication to help control edema. UNIVERSAL PROTOCOL / SAFETY CHECKLIST: N/A Current HBOT Status: Active or Complete - see screening below WOUND CENTER HYPERBARIC OXYGEN THERAPY SCREENING 1. Is the patient diabetic? (If No, skip to question 5) Yes 2. Does the patient have a lower extremity wound? YES 3. Is there exposed/involved tendon or bone? No 4. Has the wound been present for 30 days? no If Yes to ALL questions above, consult the Hyperbaric Center 5. Has the patient been diagnosed with osteomyelitis? No 6. Has the patient had a previous skin graft or flap at the wound? No 7. Has the patient had or been offered vascular intervention/evaluation? No 8. Does the patient have a wound at an amputation site? No 9. Has the patient had radiation therapy at the site of the problem? No If Yes to ANY of questions 5-9, consult the Hyperbaric Center Edith Coates RN/markell Addendum: 04/13/21 at 0850 Called and spoke to Jessica at [facility]. She conf (more content not included)... Normal [facility] Brain Natriuretic Peptideon 03-12-2021 Interpretation and review of laboratory results Abnormal [facility] Natriuretic peptide B (Bld) [Mass/Vol] 137 pg/mL High 0 - 125 pg/mL [facility] CBC WITH AUTO DIFFERENTIALon 03-12-2021 Absolute Baso # 0.0 10*3/uL 0.0 - 0.2 10*3/uL [facility] Absolute Neut # 1.4 10*3/uL Low 1.8 - 7.0 10*3/uL [facility] Basophils/100 WBC (Bld) 0.5 % 0.0 - 2.0 % [facility] Eosinophils (Bld) [#/Vol] 0.0 10*3/uL 0.0 - 0.5 10*3/uL [facility] Eosinophils/100 WBC (Bld) 1.4 % 1.0 - 6.0 % [facility] Granulocytes/100 WBC (Bld) 52.0 % 40.0 - 80.0 % [facility] Hematocrit (Bld) [Volume fraction] 37.3 % 35.0 - 47.0 % [facility] Hemoglobin.gastrointes tinal spec 1 Ql (Stl) 12.7 g/dL 11.7 - 16.0 g/dL [facility] Interpretation and review of laboratory results Abnormal [facility] Lymphocytes (Bld) [#/Vol] 0.7 10*3/uL Low 1.0 - 4.3 10*3/uL [facility] Lymphocytes/100 WBC (Bld) 26.8 % 20.0 - 40.0 % [facility] MCH (RBC) [Entitic mass] 29.1 pg 26.0 - 34.0 pg [facility] MCHC (RBC) [Mass/Vol] 34.2 % 32.0 - 36.0 % [facility] MCV (RBC) [Entitic vol] 85.3 fL 79.0 - 98.0 fL [facility] Monocytes (Bld) [#/Vol] 0.5 10*3/uL 0.0 - 0.8 10*3/uL [facility] Monocytes/100 WBC (Bld) 19.3 % High 2.0 - 10.0 % [facility] Platelet distribution width (Bld) [Ratio] 13.3 % 11.5 - 14.5 % [facility] Platelet mean volume (Bld) [Entitic vol] 8.5 fL 7.4 - 10.4 fL [facility] Platelets (Bld) [#/Vol] 166 10*3/uL 140 - 440 10*3/uL [facility] RBC (Bld) [#/Vol] 4.37 10*6/uL 3.80 - 5.2 0 10*6/uL [facility] WBC (Bld) [#/Vol] 2.6 10*3/uL Low 3.6 - 10.7 10*3/uL [facility] Test Performed by [facility], [address] , [address] LAB [facility] COVID-19, Flu A/B, and RSV C omboon 03-12-2021 Influenza A by PCR Not detected [facility] A Influenza B by PCR Not detected [facility] A Interpretation and review of laboratory results Abnormal [facility] RSV PCR Not Detected. Expected Result: Not Detected _ Method: Real-time, RT-PCR This assay was developed by [facility] and distributed under an Emergency Use Authorization (EUA) granted by the FDA for the qualitative detection of nucleic acids from SARS-CoV-2, Influenza A, Influenza B, and Respiratory Syncytial Virus. Provider and patient fact sheets can be found at https://www.fda.gov/media/ 185411/download and https://www.fda.gov/media/ 961606/download. [facility] ([facility]) RNA FIONA+probe Ql (Unsp spec) Detected Abnormal [facility] Test Performed by [facility], [address] , [address] LAB [facility] CR Chest PA/LATon 03-12-2021 CR Chest PA/LAT Patient Name: WILTON KHAN V Diagnostic Radiology ACCESSION EXAM DATE/TIME PROCEDURE ORDERING PROVIDER [id number] 03/12/2021 13:48 EST CR Chest PA and LAT MD RAJENDRA, RONI Tran CPT code 42323 Reason For Exam (CR Chest PA and LAT) bibasilar rales, orthopnea, sob with 15 feet. h/o CHF> suspect pulmonary edema vs PNA Report EXAMINATION: PA/Lateral chest INDICATION: bibasilar rales, orthopnea, sob with 15 feet. h/o CHF> suspect pulmonary edema vs PNA FINDINGS: Large patient body habitus slightly limits assessment. There is no focal consolidation, sizable pleural effusion or pneumothorax. The cardiac silhouette is enlarged. Moderate osteophytes of the spine are present at multiple levels. IMPRESSION: Slightly limited study. Cardiomegaly. Report Dictated on Final Dictating Physician: MD REY KRIKOR Signed Date and Time: 03/12/2021 2:07 pm Signed by: MD REY KRIKOR Transcribed Date and Time: 03/12/2021 2:08 Normal [facility] Comp Metabolic Panelon 03-12 ALP [Catalytic activity/Vol] 130 U/L High 38-126 [facility] Comment on above: Performed By: #### C MP3, TROPN, LACT3, BNP3, HEMDF #### [facility] [address] [place] [address] #### PCAL #### [address] ALT [Catalytic activity/Vol] 22 U/L Normal 0-34 [facility] Comment on above: Result Comment: The ALT test is performed by an updated assay method. Please note that the reference intervals have been changed and are now sex specific. Performed By: #### C MP3, TROPN, LACT3, BNP3, HEMDF #### [facility] [address] [place] [address] #### PCAL #### [address] Anion gap [Moles/Vol] 1 mmol/L Low 3-13 [facility] Comment on above: Performed By: #### C MP3, TROPN, LACT3, BNP3, HEMDF #### [facility] [address] [place] [address] #### PCAL #### [address] AST [Catalytic activity/Vol] 28 U/L Normal 15-46 [facility] Comment on above: Performed By: #### C MP3, TROPN, LACT3, BNP3, HEMDF #### [address] [place] [address] #### PCAL #### [address] Calcium [Mass/Vol] 10.9 mg/dL High 8.4-10.4 [facility] Comment on above: Performed By: #### C MP3, TROPN, LACT3, BNP3, HEMDF #### [address] [place] [address] #### PCAL #### [address] CO2 [Moles/Vol] 32 mmol/L High 22-30 [facility] Comment on above: Performed By: #### C MP3, TROPN, LACT3, BNP3, HEMDF #### [address] [place], [place] #### PCAL #### [address] Glucose [Mass/Vol] 150 mg/dL High 70-100 [facility] Comment on above: Performed By: #### C MP3, TROPN, LACT3, BNP3, HEMDF #### [address] [place] [address] #### PCAL #### [address] Protein [Mass/Vol] 6.4 g/dL Normal 6.3-8.2 [facility] Comment on above: Performed By: #### C MP3, TROPN, LACT3, BNP3, HEMDF #### [address] [place] [address] #### PCAL #### [address] Urea nitrogen [Mass/Vol] 17 mg/dL Normal 9-20 [facility] Comment on above: Performed By: #### C MP3, TROPN, LACT3, BNP3, HEMDF #### [address] [place] [address] #### PCAL #### [address] Bilirubin [Mass/Vol] 0.5 mg/dL Normal 0.2-1.3 [facility] Comment on above: Performed By: #### C MP3, TROPN, LACT3, BNP3, HEMDF #### [facility] [address] [place], [place] #### PCAL #### [address] Creatinine [Mass/Vol] 0.48 mg/dL Low 0.52-1.25 [facility] Comment on above: Performed By: #### C MP3, TROPN, LACT3, BNP3, HEMDF #### [address] [place] [address] #### PCAL #### [address] eGFR OTHER > 90.0 Normal >60 [facility] Comment on above: Result Comment: KDIG O guidelines provide the following GFR categories: Stage GFR(ml/min/1.73 m2) Terms G1 >=90 Normal or high G2 60-89 Mildly decreased* G3a 45-59 Mildly to moderately decreased G3b 30-44 Moderately to severely decreased G4 15-29 Severely decreased G5 <15 Kidney failure *Relative to young adult level. In the absence of evidence of kidney damage, neither GFR category G1 nor G2 fulfill the criteria for CKD. The CKD-EPI equation is validated in individuals 18 years of age and older. Currently the best equation for estimating glomerular filtration rate (GFR) from serum creatinine in children is the Bedside Enriquez equation. It is less accurate in patients with extremes of muscle mass, restriction of dietary protein, ingestion of creatine, extra-renal metabolism of creatinine, or treatment with medications that affect renal tubular creatinine secretion. Performed By: #### C MP3, TROPN, LACT3, BNP3, HEMDF #### [address] [place] [address] #### PCAL #### [address] GFR/1.73 sq M.predicted among blacks MDRD (S/P/Bld) [Vol rate/Area] mL/min/{1.73_m2} Normal >60 [facility] Comment on above: Performed By: #### C MP3, TROPN, LACT3, BNP3, HEMDF #### [address] [place] [address] #### PCAL #### [address] Albumin [Mass/Vol] 3.8 g/dL Normal 3.5-5.0 [facility] Comment on above: Performed By: #### C MP3, TROPN, LACT3, BNP3, HEMDF #### [address] [place], [place] #### PCAL #### [address] Chloride [Moles/Vol] 105 mmol/L Normal 98-107 [facility] Comment on above: Performed By: #### C MP3, TROPN, LACT3, BNP3, HEMDF #### [address] [place] [address] #### PCAL #### [address] Potassium [Moles/Vol] 4.1 mmol/L Normal 3.5-5.1 [facility] Comment on above: Performed By: #### C MP3, TROPN, LACT3, BNP3, HEMDF #### [address] [place], [place] #### PCAL #### [address] Sodium [Moles/Vol] 138 mmol/L Normal 135-145 [facility] Comment on above: Performed By: #### C MP3, TROPN, LACT3, BNP3, HEMDF #### [address] [place] [address] #### PCAL #### [address] [address] Comprehensive Metabolic Pane colette 03-12-2021 Albumin [Mass/Vol] 3.8 g/dL 3.5 - 5.0 g/dL [facility] ALP (Bld) [Catalytic activity/Vol] 130 U/L High 38 - 126 U/L [facility] ALT [Catalytic activity/Vol] 22 U/L 0 - 34 U/L [facility] Comment on above: The ALT test is perf ormed by an updated assay method. Please note that the reference intervals have been changed and are now sex specific. Anion gap [Moles/Vol] 1 mmol/L Low 3 - 13 mmol/L [facility] AST [Catalytic activity/Vol] 28 U/L 15 - 46 U/L [facility] Bilirubin [Mass/Vol] 0.5 mg/dL 0.2 - 1 .3 mg/dL [facility] Calcium [Mass/Vol] 10.9 mg/dL High 8.4 - 10. 4 mg/dL [facility] Chloride [Moles/Vol] 105 mmol/L 98 - 10 7 mmol/L [facility] CO2 [Moles/Vol] 32 mmol/L High 22 - 30 mmol/L [facility] Creatinine [Mass/Vol] 0.48 mg/dL Low 0.52 - 1.25 mg/dL [facility] EGFR IF NonAfrican Malian >90.0 >60 mL/min [facility] Comment on above: KDIGO guidelines pro vide the following GFR categories: Stage GFR(ml/min/1.73 m2) Terms G1 >=90 Normal or high G2 60-89 Mildly decreased* G3a 45-59 Mildly to moderately decreased G3b 30-44 Moderately to severely decreased G4 15-29 Severely decreased G5 <15 Kidney failure *Relative to young adult level. In the absence of evidence of kidney damage, neither GFR category G1 nor G2 fulfill the criteria for CKD. The CKD-EPI equation is validated in individuals 18 years of age and older. Currently the best equation for estimating glomerular filtration rate (GFR) from serum creatinine in children is the Bedside Enriquez equation. It is less accurate in patients with extremes of muscle mass, restriction of dietary protein, ingestion of creatine, extra-renal metabolism of creatinine, or treatment with medications that affect renal tubular creatinine secretion. Free PSA/Total PSA [Mass fraction] 6.4 g/dL 6.3 - 8.2 g/dL [facility] GFR/1.73 sq M.predicted among blacks MDRD (S/P/Bld) [Vol rate/Area] mL/min/{1.73_m2} >60 mL/min [facility] Glucose [Mass/Vol] 150 mg/dL High 70 - 100 mg/dL [facility] Interpretation and review of laboratory results Abnormal [facility] Potassium [Moles/Vol] 4.1 mmol/L 3.5 - 5.1 mmol/L [facility] Sodium [Moles/Vol] 138 mmol/L 135 - 145 mmol/L [facility] Urea nitrogen (BldV) [Mass/Vol] 17 mg/dL 9 - 20 mg/dL [facility] Test Performed by [facility], [address] , [address] LAB [facility] Hemogram w/ Autodiffon 03-12 Abs Baso Cnt 0.0 10*3/uL Normal 0.0-0.2 [facility] Comment on above: Performed By: #### C MP3, TROPN, LACT3, BNP3, HEMDF #### [address] [place] [address] #### PCAL #### [address] [address] Abs Neutrophile Cnt 1.4 10*3/uL Low 1.8-7.0 [facility] Comment on above: Performed By: #### C MP3, TROPN, LACT3, BNP3, HEMDF #### [address] [place] [address] #### PCAL #### [address] [address] Basophils/100 WBC (Bld) 0.5 % Normal 0.0-2.0 [facility] Comment on above: Performed By: #### C MP3, TROPN, LACT3, BNP3, HEMDF #### [address] [place] [address] #### PCAL #### [address] [address] Eosinophils (Bld) [#/Vol] 0.0 10*3/uL Normal 0.0-0.5 [facility] Comment on above: Performed By: #### C MP3, TROPN, LACT3, BNP3, HEMDF #### [address] [place] [address] #### PCAL #### [address] Eosinophils/100 WBC (Bld) 1.4 % Normal 1.0-6.0 [facility] Comment on above: Performed By: #### C MP3, TROPN, LACT3, BNP3, HEMDF #### [address] [address] #### PCAL #### [address] Erythrocyte distribution width (RBC) [Ratio] 13.3 % Normal 11.5-14.5 [facility] Comment on above: Performed By: #### C MP3, TROPN, LACT3, BNP3, HEMDF #### [address] [address] #### PCAL #### [address] Granulocytes/100 WBC (Bld) 52.0 % Normal 40.0-80.0 [facility] Comment on above: Performed By: #### C MP3, TROPN, LACT3, BNP3, HEMDF #### [address] [address] #### PCAL #### [address] Hematocrit (Bld) [Volume fraction] 37.3 % Normal 35.0-47.0 [facility] Comment on above: Performed By: #### C MP3, TROPN, LACT3, BNP3, HEMDF #### [address] [address] #### PCAL #### [address] [address] Hemoglobin (Bld) [Mass/Vol] 12.7 g/dL Normal 11.7-16.0 [facility] Comment on above: Performed By: #### C MP3, TROPN, LACT3, BNP3, HEMDF #### [address] [address] #### PCAL #### [address] Lymphocytes (Bld) [#/Vol] 0.7 10*3/uL Low 1.0-4.3 [facility] Comment on above: Performed By: #### C MP3, TROPN, LACT3, BNP3, HEMDF #### [address] [address] #### PCAL #### [address] Lymphocytes/100 WBC (Bld) 26.8 % Normal 20.0-40.0 [facility] Comment on above: Performed By: #### C MP3, TROPN, LACT3, BNP3, HEMDF #### [address] [address] #### PCAL #### [address] MCH (RBC) [Entitic mass] 29.1 pg Normal 26.0-34.0 [facility] Comment on above: Performed By: #### C MP3, TROPN, LACT3, BNP3, HEMDF #### [address] [address] #### PCAL #### [address] MCHC 34.2 % Normal 32.0-36.0 [facility] Comment on above: Performed By: #### C MP3, TROPN, LACT3, BNP3, HEMDF #### [address] #### PCAL #### [address] MCV (RBC) [Entitic vol] 85.3 fL Normal 79.0-98.0 [facility] Comment on above: Performed By: #### C MP3, TROPN, LACT3, BNP3, HEMDF #### [address] [place] [address] #### PCAL #### [address] Monocytes (Bld) [#/Vol] 0.5 10*3/uL Normal 0.0-0.8 [facility] Comment on above: Performed By: #### C MP3, TROPN, LACT3, BNP3, HEMDF #### [address] [place], [place] #### PCAL #### [address] Monocytes/100 WBC (Bld) 19.3 % High 2.0-10.0 [facility] Comment on above: Performed By: #### C MP3, TROPN, LACT3, BNP3, HEMDF #### [address] [place], [place] #### PCAL #### [address] Platelet mean volume (Bld) [Entitic vol] 8.5 fL Normal 7.4-10.4 [facility] Comment on above: Performed By: #### C MP3, TROPN, LACT3, BNP3, HEMDF #### [address] [place], [place] #### PCAL #### [address] Platelets (Bld) [#/Vol] 166 10*3/uL Normal 140-440 [facility] Comment on above: Performed By: #### C MP3, TROPN, LACT3, BNP3, HEMDF #### [address] [place], [place] #### PCAL #### [address], [place] RBC (Bld) [#/Vol] 4.37 10*6/uL Normal 3.80-5.20 [facility] Comment on above: Performed By: #### C MP3, TROPN, LACT3, BNP3, HEMDF #### [address] [place] [address] #### PCAL #### [address] [address] [place], [place] WBC (Bld) [#/Vol] 2.6 10*3/uL Low 3.6-10.7 [facility] Comment on above: Performed By: #### C MP3, TROPN, LACT3, BNP3, HEMDF #### [address] [place] [address] #### PCAL #### [address] Lactic Acidon 03-12-2021 Lactate [Moles/Vol] 1.6 mmol/L Normal 0.7-2.0 [facility] Comment on above: Performed By: #### C MP3, TROPN, LACT3, BNP3, HEMDF #### [address] [place] [address] #### PCAL #### [address] Lactic Acid, Plasmaon 2021 Lactate [Moles/Vol] 1.6 mmol/L 0.7 - 2. 0 mmol/L [facility] Test Performed by [facility], [address] [place] [address]. [address] LAB [facility] NT pro BNPon 03-12-2021 Natriuretic peptide B (Bld) [Mass/Vol] 137 pg/mL High 0-125 [facility] Comment on above: Performed By: #### C MP3, TROPN, LACT3, BNP3, HEMDF #### [address] [place] [address] #### PCAL #### [address] [place] [address] No Panel Informationon 03-12 Test Performed by [facility], [address] , [address] LAB [facility] Procalcitoninon 03-12-2021 Procalcitonin 0.05 ng/mL Normal 0.00-0.09 [facility] Comment on above: Performed By: #### C MP3, TROPN, LACT3, BNP3, HEMDF #### [facility] [address] [place] [address] #### PCAL #### [facility] [address] [place] [address] Interpretation See Below Normal [facility] Comment on above: Result Comment: PCT <0.50 = Low risk of severe sepsis and/or septic shock. PCT >2.00 = High risk of severe sepsis and/or septic shock. Performed By: #### C MP3, TROPN, LACT3, BNP3, HEMDF #### [facility] [address] [place] [address] #### PCAL #### [facility] [address] [place] [address] SARS-CoV-2, Flu A/B and RSVo n 03-12-2021 SARS-CoV-2 (COVID-19) RNA FIONA+probe Ql (Unsp spec) SARS-CoV-2 --> Status: F DETECTED Flu A PCR --> Status: F Not Detected. Flu B PCR --> Status: F Not Detected. RSV PCR --> Status: F Not Detected. Expected Result: Not Detected _ Method: Real-time, RT-PCR This assay was developed by [facility] and distributed under an Emergency Use Authorization (EUA) granted by the FDA for the qualitative detection of nucleic acids from SARS-CoV-2, Influenza A, Influenza B, and Respiratory Syncytial Virus. Provider and patient fact sheets can be found at https://www.fda.gov/media/ 970176/download and https://www.fda.gov/media/ 545005/download. Expected Result: Not Detected _ Method: Real-time, RT-PCR This assay was developed by [facility] [facility] and distributed under an Emergency Use Authorization (EUA) granted by the FDA for the qualitative detection of nucleic acids from SARS-CoV-2, Influenza A, Influenza B, and Respiratory Syncytial Virus. Provider and patient fact sheets can be found at https://www.fda.gov/media/ 230890/download and https://www.fda.gov/media/ 063898/download. Normal [facility] Comment on above: Performed By: #### C VFLR #### [email or web address] [address] [place] [address] , [address] Troponinon 03-12-2021 Troponin I.cardiac [Mass/Vol] ng/mL 0.000 - 0.034 ng/mL [facility] Comment on above: . Troponin Ion 03-12-2021 Troponin I.cardiac [Mass/Vol] ng/mL Normal 0.000-0.034 [facility] Comment on above: Result Comment: . Performed By: #### C MP3, TROPN, LACT3, BNP3, HEMDF #### [email or web address] [address] [place] [address] #### PCAL #### [employer] [address] [place] [address] XR CHEST (2 VW)on 03-12-2021 Patient Name: WILTON KHAN V Diagnostic Radiology ACCESSION EXAM DATE/TIME PROCEDURE ORDERING PROVIDER [id number] 03/12/2021 13:48 EST CR Chest PA & LAT MD RAJENDRA, RONI Tran CPT code 43409 Reason For Exam (CR Chest PA & LAT) bibasilar rales, orthopnea, sob with 15 feet. h/o CHF> suspect pulmonary edema vs PNA Report EXAMINATION: PA/Lateral chest INDICATION: bibasilar rales, orthopnea, sob with 15 feet. h/o CHF> suspect pulmonary edema vs PNA FINDINGS: Large patient body habitus slightly limits assessment. There is no focal consolidation, sizable pleural effusion or pneumothorax. The cardiac silhouette is enlarged. Moderate osteophytes of the spine are present at multiple levels. IMPRESSION: Slightly limited study. Cardiomegaly. Report Dictated on --- Final --- Dictating Physician: MD REY KRIKOR Signed Date and Time: 03/12/2021 2:07 pm Signed by: MD REY KRIKOR Transcribed Date and Time: 03/12/2021 2:08 [facility] Elena Rey MD - 03/12/2021 [id number] ACCESSION EXAM DATE/TIME PROCEDURE ORDERING PROVIDER [id number] 03/12/2021 13:48 EST CR Chest PA & LAT MD RAJENDRA, RONI Tran CPT code 20640 Reason For Exam (CR Chest PA & LAT) bibasilar rales, orthopnea, sob with 15 feet. h/o CHF> suspect pulmonary edema vs PNA Report EXAMINATION: PA/Lateral chest INDICATION: bibasilar rales, orthopnea, sob with 15 feet. h/o CHF> suspect pulmonary edema vs PNA FINDINGS: Large patient body habitus slightly limits assessment. There is no focal consolidation, sizable pleural effusion or pneumothorax. The cardiac silhouette is enlarged. Moderate osteophytes of the spine are present at multiple levels. IMPRESSION: Slightly limited study. Cardiomegaly. Report Dictated on --- Final --- Dictating Physician: MD REY KRIKOR Signed Date and Time: 03/12/2021 2:07 pm Signed by: MD REY KRIKOR Transcribed Date and Time: 03/12/2021 2:08 [facility] Phone: Radiology Study observation (narrative) [facility] Work Phone: XR CHEST (2 VW)Ordered By: Edith Rey on 03-12-2021 [facility] Work Phone: MELCHOROVon 01-28-2021 CNOV Office Visit (PLWDMR ) -- WILTON KHAN V ([id number]) 1960 F Date Time Provider Department 01/28/21 11:30 AM KEYA APARICIO During your visit today, we recorded the following information about you: Temperature Pulse Blood pressure 97.2 degrees 68/minute 140/65 Luisa Irizarry RN 01/28/2021 11:33 AM Signed Nursing Documentation Pertinent Medical History: DM, HTN, depression, DJD, CHF, COPD, hyyperparathyroidism Wound Etiology according to patient: wounds were healed for a month after going to wound center in [place]; re-occurred June 2020 unsure how they occur [facility] FAX: [phone] contract administration manager: Ramya Grayson [phone] [facility] [employer] phone: [phone] FAX: [phone] Consent captured for debridement per (Provider) and good until Anticoagulant Therapy: none ACTIVE CARE PER PROVIDER: Keya Aparicio CNP WOUND ASSESSMENT: Refer to Provider's Wound Assessment Note VASCULAR ASSESSMENT BY PROVIDER: N/A CHF History: yes per patient EDEMA: N/A - Wound on posterior right thigh Right foot: Right calf: Left foot : Left Calf: Other: MEASUREMENTS: N/A - wounds on posterior right thigh Right Calf: Right Ankle: Left Calf: Left Ankle: Length: WOUND PHOTOGRAPHY: NO DEBRIDEMENT PROCEDURE BY PROVIDER: Anesthetic Used: N/A Wound # : N/A Other procedure: N/A Specimen collected: N/A WOUND TREATMENT PER MD ORDER: WOUND #1 LOCATION: Posterior right thigh proximal Split into 2 wounds 12/09/20: #1A LOCATION: Posterior right thigh superior closed 01/12/21 #1B LOCATION: Posterior right thigh inferior closed 01/12/21 WOUND #3 LOCATION: Posterior right thigh distal closed 01/12/21 WOUND #2 LOCATION: Posterior right thigh mid/medial Closed 01/28/21 Wound # 4 LOCATION: Left Posterior Thigh 01/12/21 Closed 01/28/21 Area of concern: posterior left AND right thigh purple/ecchymotic areas, resolved 01/28/21 Skin prep applied today to bilateral healed thigh areas COMPRESSION: N/A SPECIAL NEEDS: Coordination of care - [facility]; Dressing supply orders need to be faxed to [facility] [facility] [employer] fax: [phone] Emotional support N/A OR set-up N/A Sales Project Engineer N/A Incontinence needs N/A DISCHARGED in stable condition to: Home via wheelchair Global surgical period dates if applicable: N/A Plan: Follow-up in the wound center with Keya NEEDED Continue aggressive nutritional support for optimal wound healing AND frequent position changes to relieve pressure on the buttocks EDUCATION: The patient/family was instructed how to cleanse the wound(s). Visual demonstration on how to apply the dressing with teach back method. Signs AND symptoms of infection were reviewed: Increased redness, swelling, pain, green/yellow drainage, fever and/or chills would all need to be evaluated by a Physician. Patient received typed home-going wound care instructions and has expressed intent to comply. OTHER EDUCATION: new wound care Education performed regarding lymphedema/edema: Elevation of extremity above the heart for 30 minutes three times daily and as needed Exercise such as writing the ABC's with your toes in the air, walking and/or calf pumps Wearing compression as ordered by provider Diet controlling of sodium as instructed by provider Use of medication to help control edema. UNIVERSAL PROTOCOL / SAFETY CHECKLIST: N/A Current HBOT Status: Active or Complete - see screening below WOUND CENTER HYPERBARIC OXYGEN THERAPY SCREENING 1. Is the patient diabetic? (If No, skip to question 5) Yes 2. Does the patient have a lower extremity wound? YES 3. Is there exposed/involved tendon or bone? No 4. Has the wound been present for 30 days? Yes If Yes to ALL questions above, consult the Hyperbaric Center 5. Has the patient been diagnosed with osteomyelitis? No 6. Has the patient had a previous skin graft or flap at the wound? No 7. Has the patient had or been offered vascular intervention/evaluation? No 8. Does the patient have a wound at an amputation site? No 9. Has the patient had radiation therapy at the site of the problem? No If Yes to ANY of questions 5-9, consult the Hyperbaric Center Luisa Irizarry RN/naresh Irizarry RN 01/28/2021 11:33 AM Addendum WOUND CARE INSTRUCTIONS- Wilton Khan Wound location: posterior right thigh wounds [facility] FAX: [phone] Home nurse: [facility] phone: [phone] contract administration manager: Ramya Grayson phone: [phone] [facility] [employer] ph (more content not included)... Normal [facility] [place] PARATHYROID W SPECT/CTon 01-19-2021 [facility] CNOVon 01-12-2021 CNOV Office Visit (KATERINEMR ) -- WILTON KHAN V ([id number]) 1960 F Date Time Provider Department 01/12/21 2:45 PM KEYA APARICIO PLHENNA During your visit today, we recorded the following information about you: Temperature Pulse Respiration Blood pressure 97.1 degrees 75/minute 20/minute 125/61 Winnie Ahuja RN 01/12/2021 3:05 PM Addendum Nursing Documentation Pertinent Medical History: DM, HTN, depression, DJD, CHF, COPD, hyyperparathyroidism Wound Etiology according to patient: wounds were healed for a month after going to wound center in [place]; re-occurred June 2020 unsure how they occur [facility] FAX: [phone] contract administration manager: Ramya Grayson [phone] [employer] [facility] [employer] phone: [phone] FAX: [phone] Consent captured for debridement per (Provider) and good until Anticoagulant Therapy: none ACTIVE CARE PER PROVIDER: Keya Aparicio CNP WOUND ASSESSMENT: Refer to Provider's Wound Assessment Note VASCULAR ASSESSMENT BY PROVIDER: N/A CHF History: yes per patient EDEMA: N/A - Wound on posterior right thigh Right foot: Right calf: Left foot : Left Calf: Other: MEASUREMENTS: N/A - wounds on posterior right thigh Right Calf: Right Ankle: Left Calf: Left Ankle: Length: WOUND PHOTOGRAPHY: NO DEBRIDEMENT PROCEDURE BY PROVIDER: Anesthetic Used: N/A Wound # : N/A Other procedure: N/A Specimen collected: N/A WOUND TREATMENT PER MD ORDER: WOUND #1 LOCATION: Posterior right thigh proximal Split into 2 wounds 12/09/20: #1A LOCATION: Posterior right thigh superior closed 01/12/21 #1B LOCATION: Posterior right thigh inferior closed 01/12/21 WOUND #3 LOCATION: Posterior right thigh distal closed 01/12/21 WOUND #2 LOCATION: Posterior right thigh mid/medial L: 0.2 cm x W: 0.5 cm x D: 0.1 cm Debridement by provider: N/A Wound # 4 LOCATION: Left Posterior Thigh 01/12/21 L: 0.2 cm X W: 0.6 cm X D: 0.1 Cm Debridement by provider: N/A Area of concern: posterior left AND right thigh purple/ecchymotic areas - Cleansed with: NS - Applied to yoon-wound skin: skin prep - Applied to wound bed: zinc oxide paste - Covered and secured with: 4x4 Marcus SAP - Other: 1640 - Spoke with Keisha at [employer] who called to note that patient is not covered for daily Marcus SAP dressings. Changed to 6x6 bordered gauze per Keya Aparicio. COMPRESSION: N/A SPECIAL NEEDS: Coordination of care - [facility]; Dressing supply orders need to be faxed to [employer] fax: [phone] Emotional support N/A OR set-up N/A Sales Project Engineer N/A Incontinence needs N/A DISCHARGED in stable condition to: Home via wheelchair Global surgical period dates if applicable: N/A PLAN/ORDERS: Follow-up in the wound center with Keya 2 weeks Discuss with your primary care doctor an order for home physical therapy Dressing supply orders need to be faxed to [employer] fax: [phone] (per manager case Ramya Grayson - patient's home care does not order wound supplies) Continue aggressive nutritional support for optimal wound healing AND frequent position changes to relieve pressure on the buttocks EDUCATION: The patient/family was instructed how to cleanse the wound(s). Visual demonstration on how to apply the dressing with teach back method. Signs AND symptoms of infection were reviewed: Increased redness, swelling, pain, green/yellow drainage, fever and/or chills would all need to be evaluated by a Physician. Patient received typed home-going wound care instructions and has expressed intent to comply. OTHER EDUCATION: new wound care Education performed regarding lymphedema/edema: Elevation of extremity above the heart for 30 minutes three times daily and as needed Exercise such as writing the ABC's with your toes in the air, walking and/or calf pumps Wearing compression as ordered by provider Diet controlling of sodium as instructed by provider Use of medication to help control edema. UNIVERSAL PROTOCOL / SAFETY CHECKLIST: N/A Current HBOT Status: Active or Complete - see screening below WOUND CENTER HYPERBARIC OXYGEN THERAPY SCREENING 1. Is the patient diabetic? (If No, skip to question 5) Yes 2. Does the patient have a lower extremity wound? YES 3. Is there exposed/involved tendon or bone? No 4. Has the wound been present for 30 days? Yes If Yes to ALL questions above, consult the Hyperbaric Center 5. Has the patient been diagnosed with osteomyelitis? No 6. Has the patient had a previous skin gra (more content not included)... [facility] 12-30-2020 [facility] Office Visit (MICHELINEWDMR ) -- WILTON KHAN V ([id number]) 1960 F Date Time Provider Department 12/30/20 10:00 AM KEYA APARICIO During your visit today, we recorded the following information about you: Temperature Pulse Blood pressure 97.8 degrees 83/minute 123/75 Keya Aparicio APRN.CNP 12/30/2020 12:47 PM Signed WOUND CENTER PROGRESS NOTE PATIENT NAME: Wilton Khan DATE OF FOLLOW UP: 12/30/2020 REASON FOR FOLLOW UP: right posterior thigh wounds HISTORY OF PRESENT ILLNESS: Wilton Khan is a 60 year old y/o female w/ Hx DM, HTN, CHF, COPD, DJD, morbid obesity,who presents for wound assessment and treatment evaluation of right posterior thigh wounds. She has much difficulty with standing and ambulation d/t chronic bilat knee pain. She sits and sleeps in a recliner chair. She did acquire the waffle offloading chair cushion; she states she likes it and is comfortable. Location: right posterior thigh Onset: June 2020 Aggravating factors: Debility, Diabetes mellitus, Immobility, Positioning and Pressure Wound etiology: Pressure Associated pain with wound: Yes Relieving factors for wound pain: Positioning and Wound care Treatments: Current: alginate w/ silver, bordered foam Past: Triad, Promogran PAST MEDICAL HISTORY Diagnosis Date - Abnormal glandular Papanicolaou smear of cervix 05/30/05 ABNL GLANDULAR PAP SMEAR CERVIX - Acute gastritis without mention of hemorrhage - Anxiety state, unspecified - Arrhythmia - Chronic cholecystitis - Chronic obstructive pulmonary disease (COPD) ([facility]) - Congestive heart failure ([facility]) 10/03/2011 - Diabetes ([facility]) - diabetes II 2010 - Diaphragmatic hernia without mention of obstruction or gangrene - Dysthymic disorder Depression (non-psychotic) - Esophageal reflux - Essential hypertension, benign - Generalized OA - Localized osteoarthrosis not specified whether primary or secondary, lower leg - Major depressive disorder, recurrent episode - Mucous polyp of cervix 07/19/05 - Other and unspecified anterior pituitary hyperfunction ([facility]) 10/13/05 elevated prolactin level-was normal in 2011 - PMH - PAST MEDICAL HISTORY OF sleep apnea - PMH - PAST MEDICAL HISTORY OF sleep apnea - SVT (supraventricular tachycardia) ([facility]) - 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 - Type 2 diabetes mellitus without complication, with long-term current use of insulin ([facility]) 12/22/2013 PAST SURGICAL HISTORY Procedure Laterality Date - CERVICAL BIOPSY OR EXCISION 07/19/05 endocervical polyp - COLONOSCOP W/ OR W/O BRS SPEC 01/09/2012 Colonoscopy repeat 10 years - COLPOSCOPY (VAGINOSCOPY) Colposcopy - EGD W/O [facility] SPECIMEN W/BX 01/16/07 - EGD W/O OR W/BRUSH/WASH 01/09/2012 EGD - HERNIA REPAIR HX 11/2015 ventral - HYSTEROSCOPY DX 12/17/2014 [facility] - LAP CHOLECYSTECT/CHOLANGIOGRAP HY 05/15/08 ALLERGIES ALLERGIES Allergen Reactions - Lyrica [Pregabalin] Anaphylaxis Not sure if accurate. Can take gabapentin. Patient is unsure of reaction. - Accupril [Quinapril* Intolerance dizziness - Actos [Pioglitazone] Swelling - Amlodipine Swelling Leg edema - Atenolol Swelling - Atorvastatin Intolerance Muscle cramps and weakness - Celebrex [Celecoxib] Swelling - Effexor [Venlafaxin* swelling high blood pressure - Januvia [Sitaglipti* GI Upset, Other: See Comments Patient states she couldn't eat - Metoprolol Swelling - Mobic [Meloxicam] GI Upset - Prozac [Fluoxetine * Intolerance tremor - Remeron [Mirtazapin* Rash - Risperidone Mental Status Change - Seroquel [Quetiapin* hypertension,swelling - Vancomycin Itching, Other: See Comments, Rash red all over Other reaction(s): Other: See Comments red all over - Vioxx [Rofecoxib] GI Upset - Wellbutrin [Bupropi* Intolerance nightmares CURRENT OUTPATIENT MEDICATIONS nystatin (MYCOSTATIN) powder Apply 1 application to affected area four times daily. HYDROcodone-acetaminophen (NORCO) 5-325 mg per tablet Take 1 tablet by mouth twice daily as needed for pain for up to 3 days. methocarbamol (ROBAXIN) 500 mg tablet Take 1 tablet by mouth twice daily. Insulin Maljamar, Disposable, (BD ULTRA-FINE MADI PEN NEEDLE) 32 gauge x Use one needle for each dose. 2/day. ibuprofen (MOTRIN) 800 mg tablet Take 1 tablet by mouth every 8 hours as needed (FOR PAIN. TAKE WITH FOOD). ARIPiprazole (ABILIFY) 10 mg tablet Take 1 tablet by mouth once daily. DULoxetine (CYMBALTA) 60 mg capsule Take 1 capsule by mouth once daily. furosemide (LASIX) 80 mg tablet Take 1 tablet by mouth once daily. metFORMIN ER (GLUCOPHAGE XR) 500 mg 24 hr tablet Take 1 tablet by mouth once daily. insulin glargine (LANTUS SOLOSTAR U-100 INSULIN) 100 unit/mL (3 mL) Inject 25 Units subcutaneously twice daily. famotidine (PEPCID) 40 mg tablet Take 1 tablet by mouth once daily. pot (more content not included)... [facility] 12-22-2020 [facility] Telephone (PLWDMR) -- WILTON KHAN V ([id number]) 1960 F Date Time Provider Department 12/22/20 JOSIANECAROLYNEKEYA PLWDMR During your visit today, we recorded the following information about you: Luisa Meyerstiff Pss 12/22/2020 1:45 PM Signed Patient would like called regarding her wounds and wound supplies. Allergies As of Date: 12/22/2020 Noted Allergy Reaction LYRICA (PREGABALIN) 08/05/2012 10 - Anaphylaxis Comments: Not sure if accurate. Can take gabapentin. Patient is unsure of reaction. ACCUPRIL (QUINAPRIL HCL) 08/12/2005 5 - Intolerance Comments: dizziness ACTOS (PIOGLITAZONE) 05/14/2020 7 - Swelling AMLODIPINE 04/24/2008 7 - Swelling Comments: Leg edema ATENOLOL 09/29/2010 7 - Swelling ATORVASTATIN 11/01/2017 5 - Intolerance Comments: Muscle cramps and weakness CELEBREX (CELECOXIB) 11/25/2020 7 - Swelling EFFEXOR (VENLAFAXINE HCL) 09/22/2005 Comments: swelling high blood pressure JANUVIA (SITAGLIPTIN) 09/21/2011 8 - GI Upset 14 - Other: See Comments Comments: Patient states she couldn't eat METOPROLOL 09/21/2009 7 - Swelling MOBIC (MELOXICAM) 08/12/2005 8 - GI Upset PROZAC (FLUOXETINE HCL) 08/12/2005 5 - Intolerance Comments: tremor REMERON (MIRTAZAPINE) 11/25/2020 2 - Rash RISPERIDONE 12/22/2009 1 - Mental Status Change SEROQUEL (QUETIAPINE FUMARATE) 10/05/2006 Comments: hypertension,swelling VANCOMYCIN 08/10/2017 9 - Itching 14 - Other: See Comments 2 - Rash Comments: red all over Other reaction(s): Other: See Comments red all over VIOXX (ROFECOXIB) 08/12/2005 8 - GI Upset WELLBUTRIN (BUPROPION HCL) 08/12/2005 5 - Intolerance Comments: nightmares Date Reviewed: 12/13/2020 Reviewed by: Brittany Valencia LPN - Fully Assessed Reason for Visit: Wound Care [485] Prescriptions as of 12/30/2020 - ascorbic acid (VITAMIN C ORAL) Take 1 tablet by mouth once daily. - nystatin (MYCOSTATIN) powder Apply 1 application to affected area four times daily. - HYDROcodone-acetaminophen (NORCO) 5-325 mg per tablet Take 1 tablet by mouth twice daily as needed for pain for up to 3 days. - methocarbamol (ROBAXIN) 500 mg tablet Take 1 tablet by mouth twice daily. - Insulin Maljamar, Disposable, (BD ULTRA-FINE MADI PEN NEEDLE) 32 gauge x Use one needle for each dose. 2/day. - ibuprofen (MOTRIN) 800 mg tablet Take 1 tablet by mouth every 8 hours as needed (FOR PAIN. TAKE WITH FOOD). - ARIPiprazole (ABILIFY) 10 mg tablet Take 1 tablet by mouth once daily. - DULoxetine (CYMBALTA) 60 mg capsule Take 1 capsule by mouth once daily. - furosemide (LASIX) 80 mg tablet Take 1 tablet by mouth once daily. - metFORMIN ER (GLUCOPHAGE XR) 500 mg 24 hr tablet Take 1 tablet by mouth once daily. - insulin glargine (LANTUS SOLOSTAR U-100 INSULIN) 100 unit/mL (3 mL) Inject 25 Units subcutaneously twice daily. - famotidine (PEPCID) 40 mg tablet Take 1 tablet by mouth once daily. - potassium chloride (K-TAB) 10 mEq tablet Take 1 tablet by mouth once daily. - spironolactone (ALDACTONE) 50 mg tablet Take 1 tablet by mouth once daily. - Cholecalciferol, Vitamin D3, 125 mcg (5,000 unit) cap Take 1 capsule by mouth once daily. - traZODone (DESYREL) 100 mg tablet Take 1 tablet by mouth daily at bedtime. - blood sugar diagnostic (BLOOD GLUCOSE TEST) test strip Test blood sugars up to 4 times daily as directed. Dx: Type 2 DM - Controlled E11.9 Insulin: Yes. Trumetrix brand - lancets (TRUEPLUS LANCETS) 30 gauge Test four times daily Dx: 250.02 - nystatin (MYCOSTATIN) cream Apply 1 application to affected area twice daily. - polyethylene glycol 3350 (MIRALAX, GLYCOLAX) 17 gram/dose powder Take 17 g by mouth once daily. - Blood-Glucose Meter monitoring kit Glucose Meter of Choice - Kit - Dx: Type 2 DM - Controlled E11.9 Use twice daily as directed Problem List As Of Date 12/22/2020 Noted Resolved Major depressive disorder, recurrent episode, u*08/12/2005 11/24/2014 Anxiety state [F41.1] 08/12/2005 BENIGN HYPERTENSION [I10] 08/12/2005 OSTEOARTHROS NOS-UNSPEC [M19.90] 08/12/2005 02/07/2007 ABNL GLANDULAR PAP SMEAR CERVIX [R87.619] 10/04/2005 Hyperprolactinemia (HCC) [E22.1] 10/13/2005 IRREGULAR MENSTRUATION [N92.6] 10/20/2005 ESOPHAGEAL REFLUX [K21.9] 07/27/2006 ACUTE GASTRITIS W/O HEMORRHAGE [K29.00] 01/16/2007 02/07/2007 Diaphragmatic hernia [K44.9] 01/16/2007 Unspecified gastritis and gastroduodenitis with*02/07/2007 07/24/2016 Localized osteoarthrosis not specified whether *02/07/2007 07/24/2016 Pain in joint, site unspecified [M25.50] 08/29/2007 07/24/2016 Routine general medical examination at a health*08/18/2008 11/29/2011 Class: Chronic Routine gynecological examination [Z01.419] 08/18/2008 11/29/2011 Class: Chronic Morbid obesity [E66.01] 10/13/2008 Hyperprolactinemia [E22.1] 05/21/2009 01/30/2012 Obstructive sleep apnea [G47.33] 06/09/2009 Medicati (more content not included)... Normal [facility] 12-09-2020 OV Office Visit (PLWDMR ) -- WILTON KHAN V ([id number]) 1960 F Date Time Provider Department 12/09/20 8:00 AM KEYA APARICIO PLWDMR During your visit today, we recorded the following information about you: Temperature Pulse Blood pressure 97.5 degrees 84/minute 131/63 Christina Galloway RN 12/09/2020 8:59 AM Addendum Nursing Documentation Pertinent Medical History: DM, HTN, depression, DJD, CHF, COPD, hyyperparathyroidism Wound Etiology according to patient: wounds were healed for a month after going to wound center in [place]; re-occurred June 2020 unsure how they occur Patient arrived via: [email or web address]/Nursing Facility: [facility] FAX: [phone] contract administration manager: Ramya Grayson [phone] Consent captured for debridement per (Provider) and good until Anticoagulant Therapy: none ACTIVE CARE PER PROVIDER: Keya Aparicio CNP WOUND ASSESSMENT: Refer to Provider's Wound Assessment Note VASCULAR ASSESSMENT BY PROVIDER: N/A CHF History: yes per patient EDEMA: N/A - Wound on posterior right thigh Right foot: Right calf: Left foot : Left Calf: Other: MEASUREMENTS: N/A - wounds on posterior right thigh Right Calf: Right Ankle: Left Calf: Left Ankle: Length: WOUND PHOTOGRAPHY: NO DEBRIDEMENT PROCEDURE BY PROVIDER: Anesthetic Used: N/A Wound # : N/A Other procedure: N/A Specimen collected: N/A WOUND TREATMENT PER MD ORDER: WOUND #1 LOCATION: Posterior right thigh proximal Split into 2 wounds 12/09/20: #1A LOCATION: Posterior right thigh superior Debridement by provider: N/A L: 0.4 cm x W: 1.0 cm x D: 0.2cm #1B LOCATION: Posterior right thigh inferior L: 0.4 cm x W: 0.4 cm x D: 0.1cm Debridement by provider: N/A Post-debridement measurements: L: cm X W: cm X D: cm WOUND #2 LOCATION: Posterior right thigh mid/medial L: 0.8 cm x W: 1.4 cm x D: 0.2 cm Debridement by provider: N/A Post-debridement measurements: L: cm X W: cm X D: Cm WOUND #3 LOCATION: Posterior right thigh distal L: 1.1 cm x W: 0.6 cm x D: 0.2 cm Debridement by provider: N/A Post-debridement measurements: L: cm X W: cm X D: Cm Area of concern: posterior left AND right thigh purple/ecchymotic areas - Cleansed with: NS - Applied to yoon-wound skin: skin prep - Applied to wound bed: calcium alginate - Covered and secured with: 6x7 [employer] SAP - Other: Vaseline to posterior left thigh for protection COMPRESSION: N/A SPECIAL NEEDS: Coordination of care - wound care orders faxed to [facility]; dressing supply orders need to be faxed to [employer] [facility] [employer] fax: [phone] Emotional support N/A OR set-up N/A Sales Project Engineer N/A Incontinence needs N/A DISCHARGED in stable condition to: Home via wheelchair Global surgical period dates if applicable: N/A PLAN/ORDERS: Follow-up in the wound center with Keya in 3 weeks Dressing supply orders need to be faxed to [employer] fax: [phone] (per manager case Ramya Grayson as patient's home care does not order wound supplies) Continue aggressive nutritional support for optimal wound healing AND frequent position changes to relieve pressure on the buttocks EDUCATION: The patient/family was instructed how to cleanse the wound(s). Visual demonstration on how to apply the dressing with teach back method. Signs AND symptoms of infection were reviewed: Increased redness, swelling, pain, green/yellow drainage, fever and/or chills would all need to be evaluated by a Physician. Patient received typed home-going wound care instructions and has expressed intent to comply. OTHER EDUCATION: new wound care Education performed regarding lymphedema/edema: Elevation of extremity above the heart for 30 minutes three times daily and as needed Exercise such as writing the ABC's with your toes in the air, walking and/or calf pumps Wearing compression as ordered by provider Diet controlling of sodium as instructed by provider Use of medication to help control edema. _- _- ___ UNIVERSAL PROTOCOL / SAFETY CHECKLIST: N/A _- _- ____ Current HBOT Status: Active or Complete - see screening below WOUND CENTER HYPERBARIC OXYGEN THERAPY SCREENING 1. Is the patient diabetic? (If No, skip to question 5) Yes 2. Does the patient have a lower extremity wound? YES 3. Is there exposed/involved tendon or bone? No 4. Has the wound been present for 30 days? Yes If Yes to ALL questions above, consult the Hyperbaric Center 5. (more content not included)... [facility] (PLWDMR ) -- WILTON KHAN V ([id number]) 1960 F Date Time Provider Department 11/25/20 8:00 AM KEYA APARICIO During your visit today, we recorded the following information about you: Temperature Pulse Blood pressure 97.6 degrees 73/minute 135/79 Keya Aparicio APRN.CNP 11/25/2020 10:17 AM Signed WOUND CENTER INITIAL CONSULT PATIENT NAME: Wilton Khan DATE OF CONSULTATION: 11/25/2020 REASON FOR CONSULTATION: right posterior thigh wounds HISTORY OF PRESENT ILLNESS: Wilton Khan is a 60 year old y/o female w/ hx DM, HTN, CHF, COPD, DJD, hyperparathyroidism, morbid obesity, who presents for Wound Consult. She reports recurrent wounds to the right posterior thigh. She was previously going to [facility] for treatment for the thigh wounds; they were healed for about one month but then reopened again June 2020. She has been using Promogran and border gauze type dressing on the wounds. She has difficulty with ambulation d/t chronic bilat knee pain. She does sit in a chair a lot. She has a chair cushion for offloading but states it is too hard and uncomfortable so she doesn't use it. She has assistance of [facility] at home. Location: right posterior thigh x 3 Onset: June 2020 Aggravating factors: Debility, Diabetes mellitus, Immobility, Positioning and Pressure Wound etiology: Pressure Associated pain with wound: Yes, tender Relieving factors for wound pain: Positioning and Wound care Treatments: Current: Promogran, border gauze PAST MEDICAL HISTORY Diagnosis Date - Abnormal [...] recurrent episode - Mucous polyp of cervix 5/31/06 - Other and unspecified anterior pituitary hyperfunction (HCC) 10/13/05 elevated prolactin level-was normal in 2012 - PMH - PAST MEDICAL HISTORY OF sleep apnea - PMH - PAST MEDICAL HISTORY OF sleep apnea - SVT (supraventricular tachycardia) (HCC) - 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 - Type 2 diabetes mellitus without complication, with long-term current use of insulin ([facility]) 12/22/2013 PAST SURGICAL HISTORY Procedure Laterality Date - CERVICAL BIOPSY OR EXCISION 07/19/05 endocervical polyp - COLONOSCOP W/ OR W/O BRSH SPEC 01/09/2012 Colonoscopy repeat 10 years - COLPOSCOPY (VAGINOSCOPY) Colposcopy - EGD W/O BRSH SPECIMEN W/BX 01/16/07 - EGD W/O OR W/BRUSH/WASH 01/09/2012 EGD - HERNIA REPAIR HX 11/2015 ventral - HYSTEROSCOPY DX 12/17/2014 [facility] - LAP CHOLECYSTECT/CHOLANGIOGRAP HY 05/15/08 ALLERGIES ALLERGIES Allergen Reactions - Lyrica [Pregabalin] Anaphylaxis Not sure if accurate. Can take gabapentin. Patient is unsure of reaction. - Accupril [Quinapril* Intolerance dizziness - Actos [Pioglitazone] Swelling - Amlodipine Swelling Leg edema - Atenolol Swelling - Atorvastatin Intolerance Muscle cramps and weakness - Effexor [Venlafaxin* swelling high blood pressure - Januvia [Sitaglipti* GI Upset, Other: See Comments Patient states she couldn't eat - Metoprolol Swelling - Mobic [Meloxicam] GI Upset - Prozac [Fluoxetine * Intolerance tremor - Risperidone Mental Status Change - Seroquel [Quetiapin* hypertension,swelling - Vancomycin Itching, Other: See Comments, Rash red all over Other reaction(s): Other: See Comments red all over - Vioxx [Rofecoxib] GI Upset - Wellbutrin [Bupropi* Intolerance nightmares CURRENT OUTPATIENT MEDICATIONS nystatin (MYCOSTATIN) powder Apply 1 application to affected area four times daily. HYDROcodone-acetaminophen (NORCO) 5-325 mg per tablet Take 1 tablet by mouth twice daily as needed for pain for up to 3 days. methocarbamol (ROBAXIN) 500 mg tablet Take 1 tablet by mouth twice daily. Insulin Maljamar, Disposable, (BD ULTRA-FINE MADI PEN NEEDLE) 32 gauge x Use one needle for each dose. 2/day. ibuprofen (MOTRIN) 800 mg tablet Take 1 tablet by mouth every 8 hours as needed (FOR PAIN. TAKE WITH FOOD). ARIPiprazole (ABILIFY) 10 mg tablet Take 1 tablet by mouth once daily. DULoxetine (CYMBALTA) 60 mg capsule Take 1 capsule by mouth once daily. furosemide (LASIX) 80 mg tablet Take 1 tablet by mouth once daily. metFORMIN ER (GLUCOPHAGE XR) 500 mg 24 hr tablet Take 1 tablet by mouth on (more content not included)... Normal [facility] CT Abdomen Pelvis W Contrast Ordered By: Tu Pierre on 12-12-2018 Patient Name: WILTON KHAN V ---CT--- Exam Date/Time 12/12/2018 18:16:[address] Abdomen/Pelvis w/ IV Contrast (IV Onl Ordering Physician ANA PIERRE PETER J Accession Number [id number] CPT4 Codes 12543 (CT Abdomen/Pelvis w/ IV Contrast (IV Onl), Q9967 (CT ISOVUE 370MG/ML&[id number]&ML&1) Reason For Exam pain, drianage s/p hernia repair Report CT ABDOMEN & PELVIS WITH CONTRAST. INDICATION: Abdominal pain, postoperative wound drainage COMPARISON: 08/27/2018. CONTRAST: 75 cc of Isovue-370. CT scans of the abdomen and pelvis were performed following intravenous contrast administration, with images from the lung bases through the pubic symphysis. The images are reviewed in the axial, sagittal and coronal planes. The lung bases are clear. The cardiac silhouette is satisfactory. The liver is normal in size, shape and attenuation. There are no focal liver masses. The gallbladder is not visualized and presumed surgically absent. No intra or extrahepatic biliary ductal dilatation is appreciated. The pancreas is unremarkable. The spleen is unremarkable. Evaluation of the upper GI tract demonstrates the stomach to be moderately distended with ingested debris. The duodenum is satisfactory in appearance. The small bowel is unremarkable. There is no mucosal thickening. No zone of transition is appreciated. There is no free fluid nor free air. Deep to the incision is a 6.8 x 4.9 x 17.9 cm multiloculated fluid collection within the subcutaneous soft tissues. While this likely represents a seroma a solitary air bubble seen in the superior most aspect of the fluid collection does raise the concern for the possibility of an infection. Evaluation of the colon demonstrate a moderate amount feces within the colon. No mucosal thickening of the colon is appreciated. The appendix is unremarkable. The adrenal glands and kidneys are unremarkable. There are no mass lesions nor evidence of obstruction. No calculi are seen. Scans through the pelvis demonstrate the rectosigmoid to be unremarkable. The bladder is unremarkable. The remainder of the pelvic contents are unremarkable. There is no mass or adenopathy. There is no free fluid. The aorta, inferior vena cava and iliac vessels are satisfactory. The retroperitoneum is unremarkable. There is no mass or adenopathy. The osseous structures are intact. IMPRESSION: Postsurgical changes are noted consistent with the history of hernia repair. There is a subcutaneous fluid collection deep to the incision, likely representing a seroma although the possibility of an infected fluid collection cannot be excluded. Report Dictated on --- Final --- Dictating Physician: DO GUSMAN ALFRED Signed Date and Time: 12/12/2018 7:13 pm Signed by: DO GUSMAN ALFRED Transcribed Date and Time: 12/12/2018 7:14 [place], [place] Kamaljit, Chayito Incoming Radiology Results From [facility] - 12/12/2018 7:14 PM EDT Patient Name: WILTON KHAN V ---CT--- Exam Date/Time 12/12/2018 18:16:[address] Abdomen/Pelvis w/ IV Contrast (IV Onl Ordering Physician ANA PIERRE PETER J Accession Number [id number] CPT4 Codes 68693 (CT Abdomen/Pelvis w/ IV Contrast (IV Onl), Q9967 (CT ISOVUE 370MG/ML&[id number]&ML&1) Reason For Exam pain, drianage s/p hernia repair Report CT ABDOMEN & PELVIS WITH CONTRAST. INDICATION: Abdominal pain, postoperative wound drainage COMPARISON: 08/27/2018. CONTRAST: 75 cc of Isovue-370. CT scans of the abdomen and pelvis were performed following intravenous contrast administration, with images from the lung bases through the pubic symphysis. The images are reviewed in the axial, sagittal and coronal planes. The lung bases are clear. The cardiac silhouette is satisfactory. The liver is normal in size, shape and attenuation. There are no focal liver masses. The gallbladder is not visualized and presumed surgically absent. No intra or extrahepatic biliary ductal dilatation is appreciated. The pancreas is unremarkable. The spleen is unremarkable. Evaluation of the upper GI tract demonstrates the stomach to be moderately distended with ingested debris. The duodenum is satisfactory in appearance. The small bowel is unremarkable. There is no mucosal thickening. No zone of transition is appreciated. There is no free fluid nor free air. Deep to the incision is a 6.8 x 4.9 x 17.9 cm multiloculated fluid collection within the subcutaneous soft tissues. While this likely represents a seroma a solitary air bubble seen in the superior most aspect of the fluid collection does raise the concern for the possibility of an infection. Evaluation of the colon demonstrate a moderate amount feces within the colon. No mucosal thickening of the colon is appreciated. The appendix is unremarkable. The adrenal glands and kidneys are unremarkable. There are no mass lesions nor evidence of obstruction. No calculi are seen. Scans through the pelvis demonstrate the rectosigmoid to be unremarkable. The bladder is unremarkable. The remainder of the pelvic contents are unremarkable. There is no mass or adenopathy. There is no free fluid. The aorta, inferior vena cava and iliac vessels are satisfactory. The retroperitoneum is unremarkable. There is no mass or adenopathy. The osseous structures are intact. IMPRESSION: Postsurgical changes are noted consistent with the history of hernia repair. There is a subcutaneous fluid collection deep to the incision, likely representing a seroma although the possibility of an infected fluid collection cannot be excluded. Report Dictated on --- Final --- Dictating Physician: DO GUSMAN ALFRED Signed Date and Time: 12/12/2018 7:13 pm Signed by: DO GUSMAN ALFRED Transcribed Date and Time: 12/12/2018 7:14 [place], [place] Comprehensive Metabolic Pane lOrdered By: Tu Pierre on 12-12-2018 Albumin [Mass/Vol] 3.9 g/dL 3.5 - 5 g/dL [place] ALP [Catalytic activity/Vol] 101 U/L 38 - 126 U/L [place] ALT [Catalytic activity/Vol] 17 U/L 13 - 69 U/L [place] Anion gap [Moles/Vol] 4 mmol/L [place] AST [Catalytic activity/Vol] 25 U/L 15 - 46 U/L [place] Bilirubin [Mass/Vol] 0.4 mg/dL 0.2 - 1 .3 mg/dL [place] Calcium [Mass/Vol] 10.2 mg/dL 8.4 - 10. 4 mg/dL [place] Chloride [Moles/Vol] 104 mmol/L 98 - 10 7 mmol/L [place] CO2 [Moles/Vol] 31 mmol/L High 22 - 30 mmol/L [place] Creatinine [Mass/Vol] 0.66 mg/dL 0.52 - 1.25 mg/dL [place] EGFR IF NonAfrican Malian >60.0 >60 mL/min [place] Comment on above: Source- MDRD equatio n with creatinine calibration to IDMS(NKDEP) eGFR not recommended for drug dose adjustment GFR/1.73 sq M.predicted among blacks MDRD (S/P/Bld) [Vol rate/Area] mL/min/{1.73_m2} >60 mL/min [place] Glucose [Mass/Vol] 159 mg/dL High 70 - 100 mg/dL [place] Interpretation and review of laboratory results Abnormal [place] Potassium [Moles/Vol] 4.2 mmol/L 3.5 - 5.1 mmol/L [place] Protein [Mass/Vol] 6.6 g/dL 6.3 - 8.2 g/dL [place] Sodium [Moles/Vol] 139 mmol/L 135 - 145 mmol/L [place] Urea nitrogen [Mass/Vol] 24 mg/dL High 7 - 20 mg/dL [place] Test Performed by [facility], [address], [place], [place] [id number] [place] [address] Hemogram (CBC) w/Auto DiffOr dered By: Tu Pierre on 12-12-2018 Absolute Baso # 0.1 10*3/uL 0 - 0.2 10*3/uL [place] Absolute Neut # 5.6 10*3/uL 1.8 - 7 10*3/uL [place] Basophils/100 WBC (Bld) 1.2 % 0 - 2 % [place] Eosinophils (Bld) [#/Vol] 0.5 10*3/uL 0 - 0.5 10*3/uL [place] Eosinophils/100 WBC (Bld) 5.8 % 1 - 6 % [place] Erythrocyte distribution width (RBC) [Ratio] 13.2 % 11.5 - 14.5 % [place] Granulocytes/100 WBC (Bld) 71.1 % 40 - 80 % [place] Hematocrit (Bld) [Volume fraction] 39.8 % 35 - 47 % [place] Hemoglobin (Bld) [Mass/Vol] 13.5 g/dL 11.7 - 16 g/dL [place] Interpretation and review of laboratory results Abnormal [place] Lymphocytes (Bld) [#/Vol] 1.2 10*3/uL 1 - 4.3 10*3/uL [place] Lymphocytes/100 WBC (Bld) 15.9 % Low 20 - 40 % [place] MCH (RBC) [Entitic mass] 29.4 pg 26 - 34 pg [place] MCHC 33.8 % 32 - 36 % [place] MCV (RBC) [Entitic vol] 86.9 fL 79 - 98 fL [place] Monocytes (Bld) [#/Vol] 0.5 10*3/uL 0 - 0.8 10*3/uL [place] Monocytes/100 WBC (Bld) 6.0 % 2 - 10 % [place] Platelet mean volume (Bld) [Entitic vol] 8.7 fL 7.4 - 10.4 fL [place] Platelets (Bld) [#/Vol] 212 10*3/uL 140 - 440 10*3/uL [place] RBC (Bld) [#/Vol] 4.59 10*6/uL 3.8 - 5.2 10*6/uL [facility], [place] WBC (Bld) [#/Vol] 7.8 10*3/uL 3.6 - 10.7 10*3/uL [facility], [place] Test Performed by [facility], [address], [place], [place] [address] [place], [place] UrinalysisOrdered By: Tu Pierre on 12-12-2018 Appearance (U) Turbid Clear NA [place] Bacteria, UA Moderate Negative /[HPF] [place] Bilirubin Urine Negative Negative mg/dL [place] Color (U) Yellow Lt. Yellow NA [place] Glucose, Ur Normal Normal (<70) mg/dL [place] Ketones Ql (U) Negative Negative mg/dL [place] LEUKOCYTES, UA 75 Negative Zeke/uL [place] Mucous Threads Few Negative /[LPF] [place] Nitrite, Urine Negative Negative NA [place] Occult Blood,Urine 0.06 mg/dL Negative [place] pH (U) 5.5 [pH] [place] RBC, UA 11-25 0 - 2 /[HPF] [place] Specific Perry, Urine 1.014 [place] Squam Epithel, UA 11-25 3 - 5 /[HPF] [place] Total Protein, Urine Negative Negativ e mg/dL [place] Urobilinogen, Urine Normal Normal ( 0-1) mg/dL [place] WBC, UA 6-10 0 - 5 /[HPF] [place] Yeast, Urine Few Negative /[HPF] [place] Test Performed by [facility], [address], [place], [place] [address] [place], [place] CBCon 12-05-2018 Erythrocyte distribution width (RBC) [Ratio] 13.0 % 11.5 - 14.5 % [place] Hematocrit (Bld) [Volume fraction] 37.6 % 35 - 47 % [place] Hemoglobin (Bld) [Mass/Vol] 12.7 g/dL 11.7 - 16 g/dL [place] MCH (RBC) [Entitic mass] 29.5 pg 26 - 34 pg [place] MCHC (RBC) [Mass/Vol] 33.7 % 32 - 36 % [place] MCV (RBC) [Entitic vol] 87.4 fL 79 - 98 fL [place] Platelet mean volume (Bld) [Entitic vol] 9.0 fL 7.4 - 10.4 fL [place] Platelets (Bld) [#/Vol] 206 10*3/uL 140 - 440 10*3/uL [place] RBC (Bld) [#/Vol] 4.31 10*6/uL 3.8 - 5.2 10*6/uL [place] WBC (Bld) [#/Vol] 9.8 10*3/uL 3.6 - 10.7 10*3/uL [place] Test Performed by [facility], [address] [place], [place] [id number] [place] [address] Comprehensive Metabolic Pane colette 12-05-2018 Albumin [Mass/Vol] 3.5 g/dL 3.5 - 5 g/dL [place] ALP [Catalytic activity/Vol] 101 U/L 38 - 126 U/L [place] ALT [Catalytic activity/Vol] 26 U/L 13 - 69 U/L [place] Anion gap [Moles/Vol] 2 mmol/L [place] AST [Catalytic activity/Vol] 18 U/L 15 - 46 U/L [place] Bilirubin Ql (U) 0.8 mg/dL 0.2 - 1.3 mg/dL [place] Calcium [Mass/Vol] 9.8 mg/dL 8.4 - 10. 4 mg/dL [place] Chloride [Moles/Vol] 104 mmol/L 98 - 10 7 mmol/L [place] CO2 [Moles/Vol] 33 mmol/L High 22 - 30 mmol/L [place] Creatinine [Mass/Vol] 0.48 mg/dL Low 0.52 - 1.25 mg/dL [place] EGFR IF NonAfrican [place]ian >60.0 >60 mL/min [place] Comment on above: Source- MDRD equatio n with creatinine calibration to IDMS(NKDEP) eGFR not recommended for drug dose adjustment GFR/1.73 sq M predicted among blacks MDRD (S/P/Bld) [Vol rate/Area] mL/min/{1.73_m2} >60 mL/min [place] Glucose [Mass/Vol] 187 mg/dL High 70 - 100 mg/dL [place] Interpretation and review of laboratory results Abnormal [place] Potassium [Moles/Vol] 4.2 mmol/L 3.5 - 5.1 mmol/L [place] Protein [Mass/Vol] 5.7 g/dL Low 6.3 - 8.2 g/dL [place] Sodium [Moles/Vol] 139 mmol/L 135 - 145 mmol/L [place] Urea nitrogen [Mass/Vol] 12 mg/dL 7 - 20 mg/dL [place] Test Performed by [facility], [address] [place], [place] [address] [place] Hemoglobin A1con 12-05-2018 eAG 120 mg/dL [place] HbA1c (Bld) [Mass fraction] 5.8 % High 4 - 5.7 % [place] Comment on above: --HgbA1C levels may not be accurate in patients who have renal disease, received recent blood transfusions, are anemic, or who have dyshemoglobinemia. Interpretation and review of laboratory results Abnormal [place] Test Performed by [facility], [address] [place], [place] [address] [place] POCT Glucoseon 12-05-2018 Glucose [Mass/Vol] 112 mg/dL High 70 - 100 mg/dL [facility] [place] Comment on above: Test performed by gl ucose meter. Results may be 10%-15% lower than serum/plasma values. (CLIA ID [id number]) Interpretation and review of laboratory results Abnormal [facility] [place] Test Performed by [facility], [address] [place] [address] [facility] [place] Glucose [Mass/Vol] 179 mg/dL High 70 - 100 mg/dL [facility] [place] Comment on above: Test performed by gl ucose meter. Results may be 10%-15% lower than serum/plasma values. (CLIA ID [id number]) Interpretation and review of laboratory results Abnormal [facility] [place] Test Performed by [facility], [address], [place], [place] [address] [facility] [place] POCT Glucoseon 12-04-2018 Glucose [Mass/Vol] 192 mg/dL High 70 - 100 mg/dL [facility] [place] Comment on above: Test performed by gl ucose meter. Results may be 10%-15% lower than serum/plasma values. (CLIA ID [id number]) Interpretation and review of laboratory results Abnormal [facility] [place] Test Performed by [facility], [address], [place] [address] [facility] [place] Glucose [Mass/Vol] 210 mg/dL High 70 - 100 mg/dL [facility] [place] Comment on above: Test performed by gl ucose meter. Results may be 10%-15% lower than serum/plasma values. (CLIA ID [id number]) Interpretation and review of laboratory results Abnormal [facility] [place] Test Performed by [facility], [address] [place] [address] [facility] [place] Glucose [Mass/Vol] 146 mg/dL High 70 - 100 mg/dL [facility] [place] Comment on above: Test performed by gl ucose meter. Results may be 10%-15% lower than serum/plasma values. (CLIA ID [id number]) Interpretation and review of laboratory results Abnormal [facility] [place] Test Performed by [facility], [address], [place], [place] [id number] [place] [address] Glucose [Mass/Vol] 117 mg/dL High 70 - 100 mg/dL [place] Comment on above: Test performed by gl ucose meter. Results may be 10%-15% lower than serum/plasma values. (CLIA ID [id number]) Interpretation and review of laboratory results Abnormal [place] Test Performed by [facility], [address] [place], [place] [id number] [place] [address] CBCon 11-25-2018 Erythrocyte distribution width (RBC) [Ratio] 12.8 % 11.5 - 14.5 % [place] Hematocrit (Bld) [Volume fraction] 39.8 % 35 - 47 % [place] Hemoglobin (Bld) [Mass/Vol] 13.6 g/dL 11.7 - 16 g/dL [place] MCH (RBC) [Entitic mass] 29.5 pg 26 - 34 pg [place] MCHC (RBC) [Mass/Vol] 34.1 % 32 - 36 % [place] MCV (RBC) [Entitic vol] 86.4 fL 79 - 98 fL [place] Platelet mean volume (Bld) [Entitic vol] 8.0 fL 7.4 - 10.4 fL [place] Platelets (Bld) [#/Vol] 220 10*3/uL 140 - 440 10*3/uL [place] RBC (Bld) [#/Vol] 4.61 10*6/uL 3.8 - 5.2 10*6/uL [place] WBC (Bld) [#/Vol] 5.8 10*3/uL 3.6 - 10.7 10*3/uL [place] Test Performed by [facility], [address] [place], [place] [id number] [place] [address] Comprehensive Metabolic Pane l w/ Reflex to MGon 11-25-2018 Albumin [Mass/Vol] 4.0 g/dL 3.5 - 5 g/dL [place] ALP [Catalytic activity/Vol] 108 U/L 38 - 126 U/L [place] ALT [Catalytic activity/Vol] 26 U/L 13 - 69 U/L [place] Anion gap [Moles/Vol] 4 mmol/L [place] AST [Catalytic activity/Vol] 17 U/L 15 - 46 U/L [place] Bilirubin Ql (U) 0.6 mg/dL 0.2 - 1.3 mg/dL [place] Calcium [Mass/Vol] 10.2 mg/dL 8.4 - 10. 4 mg/dL [place] Chloride [Moles/Vol] 104 mmol/L 98 - 10 7 mmol/L [place] CO2 [Moles/Vol] 33 mmol/L High 22 - 30 mmol/L [place] Creatinine [Mass/Vol] 0.59 mg/dL 0.52 - 1.25 mg/dL [place] EGFR IF NonAfrican [place]ian >60.0 >60 mL/min [place] Comment on above: Source- MDRD equatio n with creatinine calibration to IDMS(NKDEP) eGFR not recommended for drug dose adjustment GFR/1.73 sq M predicted among blacks MDRD (S/P/Bld) [Vol rate/Area] mL/min/{1.73_m2} >60 mL/min [place] Glucose [Mass/Vol] 131 mg/dL High 70 - 100 mg/dL [place] Interpretation and review of laboratory results Abnormal [place] Potassium [Moles/Vol] 4.8 mmol/L 3.5 - 5.1 mmol/L [place] Protein [Mass/Vol] 6.8 g/dL 6.3 - 8.2 g/dL [place] Sodium [Moles/Vol] 141 mmol/L 135 - 145 mmol/L [place] Urea nitrogen [Mass/Vol] 19 mg/dL 7 - 20 mg/dL [place] Test Performed by [facility], [address], [place], [place] [address] [place] Bacteria identified Cx Nom ( Wound) Wound Culture Staphylococcus aureus [facility] Work Phone: Culture, urine Bacteria identified Cx Nom (U) Escherichia coli [facility] Work Phone: Gram stain for investigation of transfusion reaction Microscopic observation Gram stain Nom (Unsp spec) [facility] Work Phone: Influenza virus A and B and SARS-CoV-2 (COVID-19) Ag panel - Upper respiratory specim SARS-CoV-2 & FLU Antigen (Rapid) Influenzae A [facility] Work Phone: Laboratory - Microbiology an d Antimicrobial susceptibility Bacteria identified Cx Nom (Bld) Streptococcus group B [facility] Work Phone: No Panel Information [facility] Vital Signs Date Time Vital Sign Value Performing Clinician Facility 10-17-2024 09:06-0400 Diastolic blood pressure 82 mm[Hg] Nehemiah Herbert MD Work Phone: [facility] 10-17-2024 09:06-0400 Heart rate 63 /min Nehemiah Herbert MD Work Phone: [facility] 10-17-2024 09:06-0400 SaO2% (BldA) [Mass fraction] 95 % Nehemiah Herbert MD Work Phone: [facility] 10-17-2024 09:06-0400 Systolic blood pressure 118 mm[Hg] Nehemiah Herbert MD Work Phone: [facility] 08-18-2024 10:43-0400 Diastolic blood pressure 72 mm[Hg] Nehemiah Herbert MD Work Phone: [facility] 08-18-2024 10:43-0400 Heart rate 57 /min Nehemiah Herbert MD Work Phone: [facility] 08-18-2024 10:43-0400 SaO2% (BldA) [Mass fraction] 99 % Nehemiah Herbert MD Work Phone: [facility] 08-18-2024 10:43-0400 Systolic blood pressure 122 mm[Hg] Nehemiah Herbert MD Work Phone: [facility] 08-18-2024 08:42-0400 Diastolic blood pressure 69 mm[Hg] Vero Lina [employer] Work Phone: [facility] 08-18-2024 08:42-0400 Heart rate 62 /min Vero Lina [employer] Work Phone: [facility] 08-18-2024 08:42-0400 Respiratory rate 16 /min Vero Lina [employer] Work Phone: [facility] 08-18-2024 08:42-0400 SaO2% (BldA) [Mass fraction] 97 % Vero Lina [employer] Work Phone: [facility] 08-18-2024 08:42-0400 Systolic blood pressure 109 mm[Hg] Vero Lina [employer] Work Phone: [facility] 07-30-2024 11:29-0400 Heart rate 65 /min Aleah Driscoll MD Work Phone: [facility] 07-30-2024 11:29-0400 SaO2% (BldA) [Mass fraction] 94 % Aleah Driscoll MD Work Phone: [facility] 06-02-2024 10:56-0400 Body temperature 97.59 [degF] Joi Suppan [employer] Work Phone: [facility] 06-02-2024 10:56-0400 Diastolic blood pressure 72 mm[Hg] Joi Suppan [employer] Work Phone: [facility] 06-02-2024 10:56-0400 Heart rate 73 /min Joi Suppan [employer] Work Phone: [facility] 06-02-2024 10:56-0400 SaO2% (BldA) [Mass fraction] 95 % Joi Suppan [employer] Work Phone: [facility] 06-02-2024 10:56-0400 Systolic blood pressure 130 mm[Hg] Joi Suppan [employer] Work Phone: [facility] 04-29-2024 10:39-0400 Diastolic blood pressure 73 mm[Hg] Antonio Bogner PA-C Work Phone: [facility] 04-29-2024 10:39-0400 Heart rate 75 /min Antonio Bogner PA-C Work Phone: [facility] 04-29-2024 10:39-0400 Respiratory rate 16 /min Antonio Bogner PA-C Work Phone: [facility] 04-29-2024 10:39-0400 SaO2% (BldA) [Mass fraction] 95 % Antonio Bogner PA-C Work Phone: [facility] 04-29-2024 10:39-0400 Systolic blood pressure 116 mm[Hg] Antonio Bogner PA-C Work Phone: [facility] 04-25-2024 14:43-0500 Body temperature 98 [degF] Dr. Nehemiah Herbert MD Work Phone: [facility] 04-25-2024 14:43-0500 Diastolic blood pressure 65 mm[Hg] Dr. Nehemiah Herbert MD Work Phone: [facility] 04-25-2024 14:43-0500 Heart rate 78 /min Dr. Nehemiah Herbert MD Work Phone: [facility] 04-25-2024 14:43-0500 Respiratory rate 15 /min Dr. Nehemiah Herbert MD Work Phone: [facility] 04-25-2024 14:43-0500 SaO2% (BldA) [Mass fraction] 99 % Dr. Nehemiah Herbert MD Work Phone: [facility] 04-25-2024 14:43-0500 Systolic blood pressure 126 mm[Hg] Dr. Nehemiah Herebrt MD Work Phone: [facility] 04-25-2024 14:04-0500 Body mass index (BMI) [Ratio] 75.3 kg/m2 Dr. Nehemiah Herbert MD Work Phone: [facility] 04-25-2024 14:04-0500 Body weight 169.[address] Nehemiah Herbert MD Work Phone: [facility] 04-25-2024 09:26-0500 Body height 149.[address] Nehemiah Herbert MD Work Phone: [facility] 04-14-2024 15:20-0500 Body mass index (BMI) [Ratio] 73.32 kg/m2 Nato Orozco APRN.[employer] Work Phone: [facility] 04-14-2024 15:20-0500 Body temperature 98.4 [degF] Nato Orozco APRN.[employer] Work Phone: [facility] 04-14-2024 15:20-0500 Body weight 164.66 kg Nato Orozco APRN.[employer] Work Phone: [facility] 04-14-2024 15:20-0500 Diastolic blood pressure 82 mm[Hg] Nato Orozco APRN.[employer] Work Phone: [facility] 04-14-2024 15:20-0500 Heart rate 80 /min Nato Orozco APRN.[employer] Work Phone: [facility] 04-14-2024 15:20-0500 Respiratory rate 18 /min Nato Orozco APRN.[employer] Work Phone: [facility] 04-14-2024 15:20-0500 SaO2% (BldA) [Mass fraction] 95 % Nato Orozco APRN.[employer] Work Phone: [facility] 04-14-2024 15:20-0500 Systolic blood pressure 132 mm[Hg] Nato Orozco APRN.[employer] Work Phone: [facility] 03-13-2024 09:21-0500 Diastolic blood pressure 77 mm[Hg] Jio Markham APRN.[employer] Work Phone: [facility] 03-13-2024 09:21-0500 Heart rate 74 /min Joi Markham APRN.[employer] Work Phone: [facility] 03-13-2024 09:21-0500 SaO2% (BldA) [Mass fraction] 98 % Joi Suppan [employer] Work Phone: [facility] 03-13-2024 09:21-0500 Systolic blood pressure 119 mm[Hg] Joi Suppan [employer] Work Phone: [facility] 01-14-2024 10:40-0500 Body temperature 95.9 [degF] Dr. Nehemiah Herbert MD Work Phone: [facility] 01-14-2024 10:40-0500 Diastolic blood pressure 45 mm[Hg] Dr. Nehemiah Herbert MD Work Phone: 5(830)719-691178 [place] [address] 01-14-2024 10:40-0500 Heart rate 62 /min Dr. Nehemiah Herbert MD Work Phone: 5(348)891-904378 [place] [address] 01-14-2024 10:40-0500 Respiratory rate 18 /min Dr. Nehemiah Herbert MD Work Phone: [facility] 01-14-2024 10:40-0500 Systolic blood pressure 108 mm[Hg] Dr. Nehemiah Herbert MD Work Phone: [facility] 11-09-2023 12:59-0400 Diastolic blood pressure 74 mm[Hg] Joi Suppan [employer] Work Phone: [facility] 11-09-2023 12:59-0400 Heart rate 68 /min Joi Suppan [employer] Work Phone: [facility] 11-09-2023 12:59-0400 Respiratory rate 20 /min Joi Suppan [employer] Work Phone: [facility] 11-09-2023 12:59-0400 SaO2% (BldA) [Mass fraction] 96 % Joi Suppan [employer] Work Phone: [facility] 11-09-2023 12:59-0400 Systolic blood pressure 126 mm[Hg] Joi Suppan [employer] Work Phone: [facility] 09-28-2023 13:03-0400 Body mass index (BMI) [Ratio] 73.92 kg/m2 Joi Suppan [employer] Work Phone: [facility] 09-28-2023 13:03-0400 Body weight 166.02 kg Joi Suppan [employer] Work Phone: [facility] 09-28-2023 13:03-0400 Diastolic blood pressure 80 mm[Hg] Joi Suppan [employer] Work Phone: [facility] 09-28-2023 13:03-0400 Heart rate 78 /min Joi Suppan [employer] Work Phone: [facility] 09-28-2023 13:03-0400 SaO2% (BldA) [Mass fraction] 96 % Joi Suppan [employer] Work Phone: [facility] 09-28-2023 13:03-0400 Systolic blood pressure 128 mm[Hg] Joi Suppan [employer] Work Phone: [facility] 09-12-2023 11:33-0400 Body temperature 97.39 [degF] Clarita Haagen [employer] Work Phone: [facility] 09-12-2023 11:33-0400 Diastolic blood pressure 80 mm[Hg] Clarita Haagen [employer] Work Phone: [facility] 09-12-2023 11:33-0400 Heart rate 74 /min Clarita Haagen [employer] Work Phone: [facility] 09-12-2023 11:33-0400 Respiratory rate 18 /min Clarita Haagen [employer] Work Phone: [facility] 09-12-2023 11:33-0400 Systolic blood pressure 110 mm[Hg] Clarita Haagen [employer] Work Phone: [facility] 06-14-2023 13:30-0400 Body mass index (BMI) [Ratio] 77.3 kg/m2 Dr. Nehemiah Herbert Work Phone: [facility] 06-14-2023 13:30-0400 Body temperature 98.4 [degF] Dr. Nehemiah Herbert Work Phone: [facility] 06-14-2023 13:30-0400 Diastolic blood pressure 65 mm[Hg] Dr. Nehemiah Herbert Work Phone: [facility] 06-14-2023 13:30-0400 Heart rate 77 /min Dr. Nehemiah Herbert Work Phone: [facility] 06-14-2023 13:30-0400 Respiratory rate 18 /min Dr. Nehemiah Herbert Work Phone: [facility] 06-14-2023 13:30-0400 Systolic blood pressure 123 mm[Hg] Dr. Nehemiah Herbert Work Phone: [facility] 05-29-2023 11:24-0400 Body weight 173.27 kg NA Abbasi PA-C Work Phone: [facility] 05-29-2023 11:24-0400 Diastolic blood pressure 80 mm[Hg] NA Abbasi PA-C Work Phone: [facility] 05-29-2023 11:24-0400 Heart rate 63 /min NA Abbasi PA-C Work Phone: [facility] 05-29-2023 11:24-0400 Respiratory rate 18 /min NA Abbasi PA-C Work Phone: [facility] 05-29-2023 11:24-0400 SaO2% (BldA) [Mass fraction] 96 % NA Abbasi PA-C Work Phone: [facility] 05-29-2023 11:24-0400 Systolic blood pressure 130 mm[Hg] NA Abbasi PA-C Work Phone: [facility] 05-21-2023 00:52-0400 Body weight 173.[address] Nehemiah Herbert Work Phone: [facility] 05-17-2023 13:15-0400 Body height 149.[address] Nehemiah Herbert Work Phone: [facility] 05-17-2023 13:15-0400 Body mass index (BMI) [Ratio] 77.3 kg/m2 Dr. Nehemiah Herbert Work Phone: [facility] 05-17-2023 13:15-0400 Body temperature 97.3 [degF] Dr. Nehemiah Herbert Work Phone: 9(577)717-923178 [place] [address] 05-17-2023 13:15-0400 Body weight 173.[address] Nehemiah Herbert Work Phone: 4(395)474-402198 [place] [address] 05-17-2023 13:15-0400 Diastolic blood pressure 72 mm[Hg] Dr. Nehemiah Herbert Work Phone: 9(208)334-746598 [place] [address] 05-17-2023 13:15-0400 Heart rate 75 /min Dr. Nehemiah Herbert Work Phone: 1(726)708-685778 [place] [address] 05-17-2023 13:15-0400 Respiratory rate 16 /min Dr. Nehemiah Herbert Work Phone: [facility] 05-17-2023 13:15-0400 Systolic blood pressure 139 mm[Hg] Dr. Nehemiah Herbert Work Phone: [facility] 05-10-2023 10:12-0400 Diastolic blood pressure 60 mm[Hg] Joi Markham APRN.[employer] Work Phone: [facility] 05-10-2023 10:12-0400 Heart rate 74 /min Joi Markham [employer] Work Phone: [facility] 05-10-2023 10:12-0400 SaO2% (BldA) [Mass fraction] 94 % Joi Markham [employer] Work Phone: [facility] 05-10-2023 10:12-0400 Systolic blood pressure 118 mm[Hg] Joi Markham [employer] Work Phone: [facility] 11-07-2022 13:19-0400 Diastolic blood pressure 84 mm[Hg] NA Abbasi PA-C Work Phone: [facility] 11-07-2022 13:19-0400 Heart rate 78 /min NA Abbasi PA-C Work Phone: [facility] 11-07-2022 13:19-0400 Respiratory rate 20 /min NA Abbasi PA-C Work Phone: [facility] 11-07-2022 13:19-0400 SaO2% (BldA) [Mass fraction] 96 % NA Abbasi PA-C Work Phone: [facility] 11-07-2022 13:19-0400 Systolic blood pressure 124 mm[Hg] NA Abbasi PA-C Work Phone: [facility] 10-10-2022 13:02-0400 Body temperature 97.59 [degF] NA Abbasi PA-C Work Phone: [facility] 10-10-2022 13:02-0400 Diastolic blood pressure 80 mm[Hg] NA Abbasi PA-C Work Phone: [facility] 10-10-2022 13:02-0400 Heart rate 76 /min NA Abbasi PA-C Work Phone: [facility] 10-10-2022 13:02-0400 Respiratory rate 16 /min NA Abbasi PA-C Work Phone: [facility] 10-10-2022 13:02-0400 SaO2% (BldA) [Mass fraction] 96 % NA Abbasi PA-C Work Phone: [facility] 10-10-2022 13:02-0400 Systolic blood pressure 138 mm[Hg] NA Abbasi PA-C Work Phone: [facility] 10-06-2022 11:38-0400 Body temperature 97 [degF] NA Abbasi PA-C Work Phone: [facility] 10-06-2022 11:38-0400 Diastolic blood pressure 80 mm[Hg] NA Abbasi PA-C Work Phone: [facility] 10-06-2022 11:38-0400 Heart rate 83 /min NA Abbasi PA-C Work Phone: [facility] 10-06-2022 11:38-0400 SaO2% (BldA) [Mass fraction] 97 % NA Abbasi PA-C Work Phone: [facility] 10-06-2022 11:38-0400 Systolic blood pressure 126 mm[Hg] NA Abbasi PA-C Work Phone: [facility] 10-02-2022 10:35-0400 Body height 149.9 cm Jose Luis Lancaster MD Work Phone: [facility] 10-02-2022 10:35-0400 Diastolic blood pressure 66 mm[Hg] Jose Luis Lancaster MD Work Phone: [facility] 10-02-2022 10:35-0400 Heart rate 78 /min Jose Luis Lancaster MD Work Phone: [facility] 10-02-2022 10:35-0400 SaO2% (BldA) [Mass fraction] 96 % Jose Luis Lancaster MD Work Phone: [facility] 10-02-2022 10:35-0400 Systolic blood pressure 134 mm[Hg] Jose Luis Lancaster MD Work Phone: [facility] 08-24-2022 13:09-0400 Diastolic blood pressure 72 mm[Hg] NA Abbasi PA-C Work Phone: [facility] 08-24-2022 13:09-0400 Heart rate 84 /min NA Abbasi PA-C Work Phone: [facility] 08-24-2022 13:09-0400 Respiratory rate 20 /min NA Abbasi PA-C Work Phone: [facility] 08-24-2022 13:09-0400 SaO2% (BldA) [Mass fraction] 95 % NA Abbasi PA-C Work Phone: [facility] 08-24-2022 13:09-0400 Systolic blood pressure 124 mm[Hg] NA Abbasi PA-C Work Phone: [facility] 07-27-2022 14:46-0400 Diastolic blood pressure 70 mm[Hg] Nehemiah Herbert MD Work Phone: [facility] 07-27-2022 14:46-0400 Heart rate 82 /min Nehemiah Herbert MD Work Phone: [facility] 07-27-2022 14:46-0400 Respiratory rate 18 /min Nehemiah Herbert MD Work Phone: [facility] 07-27-2022 14:46-0400 SaO2% (BldA) [Mass fraction] 98 % Nehemiah Herbert MD Work Phone: [facility] 07-27-2022 14:46-0400 Systolic blood pressure 138 mm[Hg] Nehemiah Herbert MD Work Phone: [facility] 05-08-2022 09:56-0400 Body temperature 97.81 [degF] NA Abbasi PA-C Work Phone: [facility] 05-08-2022 09:56-0400 Diastolic blood pressure 74 mm[Hg] NA Abbasi PA-C Work Phone: [facility] 05-08-2022 09:56-0400 Heart rate 81 /min NA Abbasi PA-C Work Phone: [facility] 05-08-2022 09:56-0400 Respiratory rate 20 /min NA Abbasi PA-C Work Phone: [facility] 05-08-2022 09:56-0400 SaO2% (BldA) [Mass fraction] 95 % NA Abbasi PA-C Work Phone: [facility] 05-08-2022 09:56-0400 Systolic blood pressure 118 mm[Hg] NA Abbasi PA-C Work Phone: [facility] 03-07-2022 21:43-0500 Diastolic blood pressure 81 mm[Hg] Dr. Nehemiah Herbert Work Phone: [facility] 03-07-2022 21:43-0500 Heart rate 84 /min Dr. Nehemiah Herbert Work Phone: 8(981)180-677198 [place] [address] 03-07-2022 21:43-0500 Respiratory rate 19 /min Dr. Nehemiah Herbert Work Phone: 2(729)802-994498 [place] [address] 03-07-2022 21:43-0500 SaO2% (BldA) [Mass fraction] 93 % Dr. Nehemiah Herbert Work Phone: 4(969)412-692498 [place] [address] 03-07-2022 21:43-0500 Systolic blood pressure 128 mm[Hg] Dr. Nehemiah Herbert Work Phone: 5(090)066-582498 [place] [address] 03-07-2022 16:49-0500 Body height 149.[address] Nehemiah Herbert Work Phone: 1(216)159-970898 [place] [address] 03-07-2022 16:49-0500 Body mass index (BMI) [Ratio] 80 kg/m2 Dr. Nehemiah Herbert Work Phone: 6(905)665-428598 [place] [address] 03-07-2022 16:49-0500 Body temperature 98.2 [degF] Dr. Nehemiah Herbert Work Phone: 2(843)474-171298 [place] [address] 03-07-2022 16:49-0500 Body weight 179.[address] Nehemiah Herbert Work Phone: 7(035)295-581698 [place] [address] 03-04-2022 13:43-0500 Body temperature 98.7 [degF] Dr. Nehemiah Herbert Work Phone: 3(918)943-039398 [place] [address] 03-04-2022 13:43-0500 Diastolic blood pressure 67 mm[Hg] Dr. Nehemiah Herbert Work Phone: 7(998)109-543498 [place] [address] 03-04-2022 13:43-0500 Heart rate 86 /min Dr. Nehemiah Herbert Work Phone: 7(690)182-665398 [place] [address] 03-04-2022 13:43-0500 Respiratory rate 18 /min Dr. Nehemiah Herbert Work Phone: 9(851)954-359598 [place] [address] 03-04-2022 13:43-0500 SaO2% (BldA) [Mass fraction] 96 % Dr. Nehemiah Herbert Work Phone: [facility] 03-04-2022 13:43-0500 Systolic blood pressure 127 mm[Hg] Dr. Nehemiah Herbert Work Phone: [facility] 03-04-2022 05:22-0500 Body weight [address] Nehemiah Herbert Work Phone: [facility] 03-04-2022 03:00-0500 Inhaled oxygen flow rate 2 L/min Dr. Nehemiah Herbert Work Phone: [facility] 03-03-2022 22:55-0500 Inhaled oxygen concentration 30 % Dr. Nehemiah Herbert Work Phone: [facility] 03-03-2022 13:12-0500 Body height 149.[address] Nehemiah Herbert Work Phone: [facility] Work Phone: 03-02-2022 15:00-0500 Body temperature 97.8 [degF] Dr. Nehemiah Herbert Work Phone: [facility] Work Phone: 03-02-2022 15:00-0500 Diastolic blood pressure 82 mm[Hg] Dr. Nehemiah Herbert Work Phone: [facility] Work Phone: 03-02-2022 15:00-0500 Heart rate 118 /min Dr. Nehemiah Herbert Work Phone: [facility] Work Phone: 03-02-2022 15:00-0500 Respiratory rate 18 /min Dr. Nehemiah Herbert Work Phone: [facility] Work Phone: 03-02-2022 15:00-0500 SaO2% (BldA) [Mass fraction] 96 % Dr. Nehemiah Herbert Work Phone: [facility] Work Phone: 03-02-2022 15:00-0500 Systolic blood pressure 136 mm[Hg] Dr. Nehemiah Herbert Work Phone: [facility] Work Phone: 03-02-2022 14:58-0500 Body mass index (BMI) [Ratio] 78.7 kg/m2 Dr. Nehemiah Herbert Work Phone: [facility] 03-02-2022 12:22-0500 Body height 149.[address] Nehemiah Herbert Work Phone: [facility] Work Phone: 03-02-2022 12:22-0500 Body mass index (BMI) [Ratio] 79.6 kg/m2 Dr. Nehemiah Herbert Work Phone: [facility] Work Phone: 03-02-2022 12:22-0500 Body weight [address] Nehemiah Herbert Work Phone: [facility] Work Phone: 02-15-2022 10:51-0500 Body weight 176.9 kg Nehemiah Herbert MD Work Phone: [facility] 02-15-2022 10:51-0500 Diastolic blood pressure 72 mm[Hg] Nehemiah Herbert MD Work Phone: [facility] 02-15-2022 10:51-0500 Heart rate 88 /min Nehemiah Herbert MD Work Phone: [facility] 02-15-2022 10:51-0500 Respiratory rate 16 /min Nehemiah Herbert MD Work Phone: [facility] 02-15-2022 10:51-0500 Systolic blood pressure 120 mm[Hg] Nehemiah Herbert MD Work Phone: [facility] 11-17-2021 14:18-0400 Body height 149.9 cm Nehemiah Herbert MD Work Phone: [facility] 11-17-2021 14:18-0400 Body weight 172.82 kg Nehemiah Herbert MD Work Phone: [facility] 11-17-2021 14:18-0400 Diastolic blood pressure 70 mm[Hg] Nehemiah Herbert MD Work Phone: [facility] 11-17-2021 14:18-0400 Heart rate 77 /min Nehemiah Herbert MD Work Phone: [facility] 11-17-2021 14:18-0400 SaO2% (BldA) [Mass fraction] 97 % Nehemiah Herbert MD Work Phone: [facility] 11-17-2021 14:18-0400 Systolic blood pressure 118 mm[Hg] Nehemiah Herbert MD Work Phone: [facility] 09-21-2021 15:24-0400 Body temperature 97.3 [degF] Keya Alessandra [employer] Work Phone: [facility] 09-21-2021 15:24-0400 Diastolic blood pressure 66 mm[Hg] Keya Alessandra [employer] Work Phone: [facility] 09-21-2021 15:24-0400 Heart rate 98 /min Keya Alessandra [employer] Work Phone: [facility] 09-21-2021 15:24-0400 Respiratory rate 20 /min Keya Alessandra [employer] Work Phone: [facility] 09-21-2021 15:24-0400 SaO2% (BldA) [Mass fraction] 94 % Keya Aparicio [employer] Work Phone: [facility] 09-21-2021 15:24-0400 Systolic blood pressure 131 mm[Hg] Keya Josianechak [employer] Work Phone: [facility] 08-29-2021 10:33-0400 Body temperature 97.7 [degF] Keya Aparicio [employer] Work Phone: [facility] 08-29-2021 10:33-0400 Diastolic blood pressure 58 mm[Hg] Keya Aparicio [employer] Work Phone: [facility] 08-29-2021 10:33-0400 Heart rate 80 /min Keya Andrerinchak [employer] Work Phone: [facility] 08-29-2021 10:33-0400 SaO2% (BldA) [Mass fraction] 96 % Keya Andrekayleek [employer] Work Phone: [facility] 08-29-2021 10:33-0400 Systolic blood pressure 121 mm[Hg] Keya Andrekayleek [employer] Work Phone: [facility] 07-13-2021 15:51-0400 Body temperature 97.59 [degF] Keya Josianechak [employer] Work Phone: [facility] 07-13-2021 15:51-0400 Diastolic blood pressure 98 mm[Hg] Keyalen Joshuachak [employer] Work Phone: [facility] 07-13-2021 15:51-0400 Heart rate 77 /min Keyalen Hathawayk [employer] Work Phone: [facility] 07-13-2021 15:51-0400 Respiratory rate 20 /min Keya Josianekyleek [employer] Work Phone: [facility] 07-13-2021 15:51-0400 SaO2% (BldA) [Mass fraction] 97 % Keya Andreselvinkyleek [employer] Work Phone: [facility] 07-13-2021 15:51-0400 Systolic blood pressure 113 mm[Hg] Keya Hathawayk [employer] Work Phone: [facility] 07-06-2021 14:20-0400 Body height 149.9 cm Pacc 1 Work Phone: [facility] 07-06-2021 14:20-0400 Body temperature 97 [degF] Pacc 1 Work Phone: [facility] 07-06-2021 14:20-0400 Body weight 172.82 kg Pacc 1 Work Phone: [facility] 07-06-2021 14:20-0400 Diastolic blood pressure 64 mm[Hg] Pacc 1 Work Phone: [facility] 07-06-2021 14:20-0400 Heart rate 78 /min Pacc 1 Work Phone: [facility] 07-06-2021 14:20-0400 Respiratory rate 18 /min Pacc 1 Work Phone: [facility] 07-06-2021 14:20-0400 SaO2% (BldA) [Mass fraction] 98 % Pacc 1 Work Phone: [facility] 07-06-2021 14:20-0400 Systolic blood pressure 118 mm[Hg] Pacc 1 Work Phone: [facility] 06-08-2021 09:58-0400 Body temperature 97.5 [degF] Keya Aparicio APRN.[employer] Work Phone: [facility] 06-08-2021 09:58-0400 Diastolic blood pressure 72 mm[Hg] Keya Aparicio [employer] Work Phone: [facility] 06-08-2021 09:58-0400 Heart rate 87 /min Keya Aparicio APRN.[employer] Work Phone: [facility] 06-08-2021 09:58-0400 Respiratory rate 20 /min eKya Aparicio APRN.[employer] Work Phone: [facility] 06-08-2021 09:58-0400 SaO2% (BldA) [Mass fraction] 96 % Keya Aparicio [employer] Work Phone: [facility] 06-08-2021 09:58-0400 Systolic blood pressure 127 mm[Hg] Keya Aparicio APRN.[employer] Work Phone: [facility] 05-25-2021 10:38-0400 Body temperature 97.3 [degF] Keya Aparicio [employer] Work Phone: [facility] 05-25-2021 10:38-0400 Diastolic blood pressure 80 mm[Hg] Keya Aparicio [employer] Work Phone: [facility] 05-25-2021 10:38-0400 Heart rate 82 /min Keya Aparicio [employer] Work Phone: [facility] 05-25-2021 10:38-0400 SaO2% (BldA) [Mass fraction] 94 % Keya Aparicio [employer] Work Phone: [facility] 05-25-2021 10:38-0400 Systolic blood pressure 123 mm[Hg] Keya Aparicio [employer] Work Phone: [facility] 03-12-2021 15:08-0500 Diastolic blood pressure 84 mm[Hg] Omi Crespo MD Work Phone: [facility] 03-12-2021 15:08-0500 Heart rate 69 /min Omi Crespo MD Work Phone: [facility] 03-12-2021 15:08-0500 Respiratory rate 14 /min Omi Crespo MD Work Phone: [facility] 03-12-2021 15:08-0500 SaO2% (BldA) [Mass fraction] 99 % Omi Crespo MD Work Phone: [facility] 03-12-2021 15:08-0500 Systolic blood pressure 122 mm[Hg] Omi Crespo MD Work Phone: [facility] 03-12-2021 12:10-0500 Body height 149.9 cm Omi Crespo MD Work Phone: [facility] 03-12-2021 12:10-0500 Body mass index (BMI) [Ratio] 78.77 kg/m2 Omi Crespo MD Work Phone: [facility] 03-12-2021 12:10-0500 Body temperature 99 [degF] Omi Crespo MD Work Phone: [facility] 03-12-2021 12:10-0500 Body weight 176.9 kg Omi Crespo MD Work Phone: [facility] 12-12-2018 19:16-0400 Diastolic blood pressure 63 mm[Hg] Gm Appiah MD Work Phone: [place], [place] 12-12-2018 19:16-0400 Heart rate 101 /min Gm Appiah MD Work Phone: [place] 12-12-2018 19:16-0400 Respiratory rate 18 /min Gm Appiah MD Work Phone: [place] 12-12-2018 19:16-0400 SaO2% (BldA) [Mass fraction] 96 % Gm Appiah MD Work Phone: [place] 12-12-2018 19:16-0400 Systolic blood pressure 133 mm[Hg] Gm Appiah MD Work Phone: [place] 12-12-2018 15:13-0400 Body mass index (BMI) [Ratio] 68.67 kg/m2 Gm Appiah MD Work Phone: [place] 12-12-2018 15:13-0400 Body temperature 98.2 [degF] Gm Appiah MD Work Phone: [place] 12-12-2018 15:13-0400 Body weight 154.22 kg Gm Appiah MD Work Phone: [place] 12-05-2018 11:24-0400 Body Temperature 98.2 [degF] [facility] 12-05-2018 11:24-0400 BP Diastolic 74 mm[Hg] [facility] [place] 12-05-2018 11:24-0400 BP Systolic 129 mm[Hg] [facility] [place] 12-05-2018 11:24-0400 Pulse (Heart Rate) 70 /min [facility] 12-05-2018 11:24-0400 Pulse Oximetry 97 % [facility] [place] 12-05-2018 11:24-0400 Respiratory Rate 16 /min [facility] 12-04-2018 06:37-0400 BMI (Body Mass Index) 69.48 kg/m2 [facility], [place] 12-04-2018 06:37-0400 Body weight 156.04 kg [facility] [place] 12-04-2018 06:37-0400 Height 149.9 cm [facility] [place] 11-25-2018 10:19-0400 BMI (Body Mass Index) 69.6 kg/m2 [facility], [place] 11-25-2018 10:19-0400 Body Temperature 98.2 [degF] [facility] 11-25-2018 10:19-0400 Body weight 156.31 kg [facility] [place] 11-25-2018 10:19-0400 BP Diastolic 87 mm[Hg] [facility] [place] 11-25-2018 10:19-0400 BP Systolic 159 mm[Hg] [facility] [place] 11-25-2018 10:19-0400 Height 149.9 cm [place] 11-25-2018 10:19-0400 Pulse (Heart Rate) 94 /min [place], [place] 11-25-2018 10:19-0400 Pulse Oximetry 95 % [place] 11-25-2018 10:19-0400 Respiratory Rate 18 /min [place] Encounters Encounter Date Encounter Type Care Provider Facility Start: 12-29-2024 End: 12-29-2024 ambulatory NEHEMIAH HERBERT Facility:[facility] Start: 12-25-2024 ambulatory Joi Suppan Facil ity:[facility] Start: 12-25-2024 ambulatory Joi Suppan Facil ity:[facility] Start: 12-23-2024 End: 12-23-2024 ambulatory JOI A SUPPAN Facility:[facility] Start: 12-01-2024 End: 12-01-2024 ambulatory VERO MILLS Facility:[facility] Start: 10-23-2024 End: 10-23-2024 Telephone encounter Nehemiah Herbert MD Work Phone: [facility] [place] Comment on above: Medication Question Start: 10-17-2024 End: 10-17-2024 Patient encounter procedure Nehemiah Herbert MD Work Phone: [facility] [place] Comment on above: Benign hypertensive heart disease with CHF, NYHA class 2 (HCC) (Primary Dx); SVT (supraventricular tachycardia) ([facility]); Obstructive sleep apnea; Gastroesophageal reflux disease without esophagitis; S/P parathyroidectomy; Major depressive disorder, recurrent episode, moderate ([facility]); DDD (degenerative disc disease), cervical; Degeneration of intervertebral disc of lumbar region, unspecified whether pain present; Bilateral primary osteoarthritis of knee; Chronic respiratory failure with hypoxia ([facility]); Type 2 diabetes mellitus with peripheral neuropathy ([facility]); Morbid obesity with BMI of 70 and over, adult ([facility]); History of DVT (deep vein thrombosis) Start: 10-17-2024 End: 10-17-2024 ambulatory NEHEMIAH HERBERT Facility:[facility] Start: 10-13-2024 End: 10-14-2024 Refill Nehemiah Herbert MD Work Phone: [facility] [place] Comment on above: Refill Request Start: 10-10-2024 End: 10-10-2024 Refill Nehemiah Herbert MD Work Phone: [facility] [place] Comment on above: Refill Request; Terri ent Update Start: 10-09-2024 End: 10-09-2024 Telephone encounter Nehemiah Herbert MD Work Phone: [facility] [place] Comment on above: Patient Request Start: 09-17-2024 End: 09-17-2024 Telephone encounter Nehemiah Herbert MD Work Phone: [facility] [place] Comment on above: blood sugar readings Start: 09-16-2024 End: 09-16-2024 Refill Nehemiah Herbert MD Work Phone: [facility] [place] Comment on above: Refill Request Start: 09-01-2024 End: 09-01-2024 Telephone encounter Nehemiah Herbert MD Work Phone: [facility] [place] Comment on above: Patient Update; LISSETH grey Start: 08-28-2024 End: 08-29-2024 Telephone encounter Vero Mills APRN.[employer] Work Phone: Neurology Comment on above: Patient Update Start: 08-25-2024 End: 08-25-2024 Refill Nehemiah Herbert MD Work Phone: [facility] Comment on above: Refill Request Start: 08-19-2024 End: 08-20-2024 Follow-up encounter Nehemiah Herbert MD Work Phone: [facility] [place] Start: 08-18-2024 End: 08-27-2024 E-mail encounter from caregiver Vero Mills APRN.[employer] Work Phone: Neurology Start: 08-18-2024 End: 08-22-2024 Telephone encounter Vero Mills APRN.[employer] Work Phone: Neurology Comment on above: Patient Update Start: 08-18-2024 End: 08-18-2024 Patient encounter procedure Vero Mills APRN.[employer] Work Phone: Neurology Comment on above: Obstructive sleep ap masood; Restless legs syndrome Type 2 diabetes joe itus with peripheral neuropathy (HCC) (Primary Dx); Pain disorder with psychological factors; Essential hypertension, benign; Benign hypertensive heart disease with CHF, NYHA class 2 (HCC); Obstructive sleep apnea; Gastroesophageal reflux disease without esophagitis; Primary hyperparathyroidism (HCC); Deep vein thrombosis (DVT) of proximal vein of left lower extremity, unspecified chronicity (HCC); Degeneration of intervertebral disc of lumbar region, unspecified whether pain present; Morbid obesity (HCC); Anxiety state; Debility; Chronic respiratory failure with hypoxia (HCC); DDD (degenerative disc disease), cervical; Lumbar facet arthropathy; Diffuse myofascial pain syndrome; DDD (degenerative disc disease), lumbar; Encounter for screening mammogram for breast cancer; Screening for colon cancer; Restless legs syndrome; Degeneration of intervertebral disc of lumbar region with discogenic back pain and lower extremity pain Start: 08-18-2024 End: 08-27-2024 ambulatory Vero Mills [employer] Work Phone: Neurology Comment on above: PAP serial number Start: 08-08-2024 End: 08-08-2024 ambulatory Nehemiah Herbert MD Work Phone: [facility] [place] Comment on above: NO SHOW (Primary Dx) Start: 08-08-2024 End: 08-08-2024 Telemedicine consultation with patient Nehemiah Herbert MD Work Phone: [facility] [place] Start: 07-30-2024 End: 07-30-2024 Patient encounter procedure Aleah Driscoll MD Work Phone: Pain Management Comment on above: BMI 50.0-59.9, adult (HCC) (Primary Dx); DDD (degenerative disc disease), cervical; Diffuse myofascial pain syndrome; Bilateral primary osteoarthritis of knee Start: 07-30-2024 End: 07-30-2024 ambulatory ALEAH DRISCOLL Facility:[facility] Start: 07-29-2024 End: 07-29-2024 Refill Nehemiah Herbert MD Work Phone: [facility] [place] Comment on above: Refill Request Start: 07-22-2024 End: 07-22-2024 Refill Nehemiah Herbert MD Work Phone: [facility] [place] Comment on above: Refill Request Instructions & Requi rements for Your Upcoming Appointment Start: 07-04-2024 End: 07-04-2024 Refill Nehemiah Herbert MD Work Phone: [facility] [place] Comment on above: Refill Request Start: 07-02-2024 End: 07-03-2024 Telephone encounter Nehemiah Herbert MD Work Phone: [facility] [place] Comment on above: Patient Question Start: 06-18-2024 End: 06-18-2024 Distance Health Nehemiah Herbert MD Work Phone: [facility] [place] Comment on above: Congestive heart mojgan lure, unspecified HF chronicity, unspecified heart failure type (HCC); Major depressive disorder, recurrent episode, moderate (HCC); Anxiety state Start: 06-06-2024 End: 06-09-2024 Telephone encounter Joi Markham APRN.CNP Work Phone: [facility] [place] Comment on above: Patient Update Start: 06-03-2024 End: 08-03-2024 Follow-up encounter Joi Markham APRN.[employer] Work Phone: [facility] [place] Start: 06-02-2024 End: 06-02-2024 ambulatory JOI A SUPPAN Facility:[facility] Start: 06-02-2024 End: 06-02-2024 Office outpatient visit 15 minutes Joi Markham [employer] Work Phone: [facility] [place] Comment on above: DDD (degenerative di sc disease), cervical; Lumbar facet arthropathy; Diffuse myofascial pain syndrome; Pain disorder with psychological factors; DDD (degenerative disc disease), lumbar; Type 2 diabetes mellitus with peripheral neuropathy (HCC) Start: 05-29-2024 End: 05-30-2024 Refill Joi A Suppan [employer] [facility] Comment on above: Refill Request Start: 05-12-2024 End: 05-12-2024 Refill Joi A Suppan [employer] Work Phone: [facility] [place] Comment on above: Refill Request Start: 04-29-2024 End: 04-29-2024 ambulatory ANTONIO GHOSH Facility:[facility] Start: 04-29-2024 End: 04-29-2024 Office outpatient visit 25 minutes Antonio Ghosh PA-C Work Phone: [facility] [place] Comment on above: Acute maxillary sinu sitis, recurrence not specified (Primary Dx) Start: 04-25-2024 End: 04-25-2024 Telephone encounter Joi Markham [employer] Work Phone: [facility] [place] Comment on above: Patient Update Start: 04-25-2024 End: 04-25-2024 Emergency department patient visit Dr. Nehemiah Herbert MD Work Phone: -Emergency Department Work Phone: Start: 04-24-2024 End: 04-24-2024 ambulatory Joi A Suppan [employer] Work Phone: [facility] [place] Comment on above: Headache; Dizziness; Chest Pain Start: 04-24-2024 End: 04-25-2024 Telephone encounter Joi A Suppnissa [employer] Work Phone: [facility] [place] Comment on above: Patient Update Start: 04-14-2024 End: 04-14-2024 ambulatory JOI A SUPPAN Facility:[facility] Start: 04-14-2024 End: 04-14-2024 Patient encounter procedure Nato Orozco APRN.[employer] Work Phone: [facility] Comment on above: Rhinosinusitis (Prim cecile Dx) Start: 04-14-2024 End: 04-15-2024 Telephone encounter Joi A Suppan [employer] Work Phone: [facility] [place] Comment on above: Sinus Problem Start: 03-17-2024 End: 03-17-2024 Refill Joi A Suppan [employer] Work Phone: [facility] [place] Comment on above: Refill Request Start: 03-14-2024 End: 03-14-2024 Telephone encounter Joi A Suppan [employer] Work Phone: [facility] [place] Comment on above: Results Start: 03-13-2024 End: 03-13-2024 ambulatory JOI A SUPPAN Facility:[facility] Start: 03-13-2024 End: 03-13-2024 ambulatory JOI A SUPPAN Facility:[facility] Start: 03-13-2024 End: 03-13-2024 Office outpatient visit 25 minutes Joi A Suppan [employer] Work Phone: [facility] [place] Comment on above: Type 2 diabetes joe itus with peripheral neuropathy (HCC) (Primary Dx); Encounter for immunization; Pain disorder with psychological factors; Diffuse myofascial pain syndrome; SVT (supraventricular tachycardia) ([facility]); Essential hypertension, benign; Obstructive sleep apnea; Chronic respiratory failure with hypoxia ([facility]); Degeneration of intervertebral disc of lumbar region with discogenic back pain; Anxiety with depression; Screening for colon cancer; Morbid obesity with BMI of 50.0-59.9, adult ([facility]); Age-related physical debility Start: 03-11-2024 End: 04-11-2024 ambulatory Joi A Suppan [employer] Work Phone: [facility] Start: 03-03-2024 End: 03-03-2024 Refill Joi A Suppan [employer] Work Phone: [facility] Comment on above: Refill Request Start: 02-12-2024 End: 02-12-2024 Refill Joi A Suppan [employer] Work Phone: [facility] Comment on above: Refill Request requesting medicatio n that is Start: 01-28-2024 ambulatory Joi Suppan Facil ity:[facility] Start: 01-14-2024 ambulatory [facility] Facility:[facility] Start: 01-14-2024 Non-patient / Non-visit Arpita Moore NP-C -[facility] Start: 01-14-2024 End: 01-19-2024 [facility] Facility:[facility] Start: 01-14-2024 End: 01-19-2024 Discharged Recurring Arpita Moore NP-[facility] Work Phone: Start: 01-07-2024 End: 01-07-2024 Refill Joi A Suppan [employer] Work Phone: [facility] Comment on above: Refill Request Start: 12-31-2023 Non-patient / Non-visit Arpita Moore NP-C -[facility] Start: 12-31-2023 End: 12-31-2023 Refill Joi A Suppan [employer] Work Phone: [facility] Comment on above: Refill Request Start: 12-17-2023 End: 12-17-2023 Refill Joi Markham APRN.[employer] Work Phone: [facility] Comment on above: Refill Request Consult Start: 11-13-2023 End: 11-13-2023 Orders Only Joi Markham APRN.[employer] Work Phone: [facility] Comment on above: DDD (degenerative di sc disease), lumbar; DDD (degenerative disc disease), cervical; Lumbar facet arthropathy; Diffuse myofascial pain syndrome; Pain disorder with psychological factors Start: 11-09-2023 End: 11-09-2023 Office outpatient visit 25 minutes Joi Markham APRN.[facility] Work Phone: [facility] Comment on above: Essential hypertensi on, benign (Primary Dx); DDD (degenerative disc disease), cervical; Lumbar facet arthropathy; Diffuse myofascial pain syndrome; Pain disorder with psychological factors; Encounter for immunization; Anxiety state; Super obesity; Diabetes mellitus type 2 with ketoacidosis, uncontrolled (HCC); Herpes zoster keratitis Start: 10-12-2023 End: 10-12-2023 Parveen Abbasi PA-C Work Phone: [facility] Comment on above: Refill Request Start: 09-28-2023 End: 09-28-2023 Office outpatient visit 15 minutes Joi Markham APRN.[facility] Work Phone: [facility] Comment on above: Class 3 severe obesi ty with body mass index (BMI) greater than or equal to 70 in adult, unspecified obesity type, unspecified whether serious comorbidity present (HCC) (Primary Dx); Controlled type 2 diabetes mellitus without complication, with long-term current use of insulin (HCC); Chronic constipation; Type 2 diabetes mellitus with peripheral neuropathy (HCC); Herpes zoster without complication Start: 09-13-2023 Telephone encounter Joi Markham APRN.CNP Work Phone: [facility] Comment on above: Patient Question Start: 09-12-2023 End: 09-12-2023 Office outpatient visit 25 minutes Clarita Mathews APRN.[employer] Work Phone: [facility] [place] Comment on above: Herpes zoster withou t complication (Primary Dx) Start: 09-11-2023 Refill Sanjay Welch on PA-C Work Phone: [facility] [place] Comment on above: Refill Request Start: 09-10-2023 ambulatory Sanjay ObrienHubert Yuri on PA-C Work Phone: [facility] [place] Comment on above: Shingles Start: 09-05-2023 Telephone encounter Sanjay Abbasi PA-C Work Phone: [facility] [place] Comment on above: Letter to [place] Start: 08-27-2023 Refill Sanjay Welch on PA-C Work Phone: [facility] [place] Comment on above: Refill Request Start: 08-13-2023 Telephone encounter Sanjay Abbasi PA-C Work Phone: [facility] [place] Comment on above: Insurance Authorizat ion Orders (Diabetic Tamy e) Start: 08-10-2023 Refill Sanjay Welch on PA-C Work Phone: [facility] [place] Comment on above: Refill Request Pharmacy Call Start: 08-06-2023 Telephone encounter Sanjay Abbasi PA-C Work Phone: [facility] [place] Comment on above: Patient Update (rega rding weight) Start: 07-19-2023 Refill Sanjay ObrienHubert Yuri on PA-C Work Phone: [facility] [place] Comment on above: Refill Request Start: 06-21-2023 Refill Sanjay Welch on PA-C Work Phone: [facility] [place] Comment on above: Refill Request Start: 06-14-2023 Non-patient / Non-visit Dr. Indra Herbert Work Phone: [facility] Start: 06-14-2023 End: 06-19-[address] Nehemiah Herbert Work Phone: [facility] Work Phone: Start: 06-14-2023 End: 06-19-[address] Nehemiah Herbert Work Phone: [facility] Work Phone: Start: 06-06-2023 Refill Sanjay DUPONTC Work Phone: [facility] Comment on above: Refill Request Start: 06-04-2023 Telephone encounter Sanjay RICHARDSON-C Work Phone: [facility] Comment on above: Medication Update Start: 05-31-2023 Non-patient / Non-visit Dr. Indra Herbert Work Phone: [facility] Start: 05-29-2023 End: 05-29-2023 Patient encounter procedure Sanjay Abbasi PA-C Work Phone: [facility] Comment on above: Essential hypertensi on, benign (Primary Dx); Benign hypertensive heart disease with CHF, NYHA class 2 (HCC); SVT (supraventricular tachycardia) (HCC); Debility; Type 2 diabetes mellitus with peripheral neuropathy (HCC); super obesity; Pressure injury of left thigh, stage 2 (HCC) Start: 05-17-2023 Non-patient / Non-visit Dr. Indra Herbert Work Phone: [facility] Start: 05-17-2023 End: 05-20-[address] Nehemiah Herbert Work Phone: [facility] Work Phone: Start: 05-17-2023 End: 05-20-[address] Nehemiah Herbert Work Phone: [facility] Work Phone: Start: 05-15-2023 Telephone encounter Sanjay DUPONTC Work Phone: [facility] Start: 05-14-2023 Telephone encounter Sanjay Abbasi PA-C Work Phone: [facility] Comment on above: Medication Question Start: 05-10-2023 End: 05-10-2023 Office outpatient visit 25 minutes Joi Markham APRN.[employer] Work Phone: [facility] [place] Comment on above: Diabetes mellitus ty pe 2 with ketoacidosis, uncontrolled (HCC) (Primary Dx); Pressure injury of elbow, stage 3, unspecified laterality (HCC) Start: 05-07-2023 Telephone encounter Sanjay Abbasi PA-C Work Phone: [facility] [place] Comment on above: Patient Update Start: 04-11-2023 ambulatory Sanjay Welch on PA-C Work Phone: [facility] [place] Start: 04-04-2023 Refill Sanjay Welch on PA-C Work Phone: [facility] Comment on above: Refill Request Start: 04-03-2023 Refill Sanjay Welch on PA-C Work Phone: [facility] [place] Start: 03-15-2023 End: 03-15-2023 ambulatory Sanjay ABBASI Facility:[facility] Start: 03-07-2023 Telephone encounter Sanjay Abbasi PA-C Work Phone: [facility] [place] Comment on above: Medication Request Start: 01-26-2023 Telephone encounter Sanjay Abbasi PA-C Work Phone: [facility] [place] Comment on above: Lab Orders Start: 01-23-2023 Refill Sanjay Welch on PA-C Work Phone: [facility] [place] Comment on above: Refill Request Start: 2023 ambulatory Sanjay Welch on PA-C Work Phone: [facility] [place] Comment on above: UTI Start: 01-08-2023 Telephone encounter Sanjay Abbasi PA-C Work Phone: [facility] [place] Comment on above: Forms Start: 12-28-2022 Telephone encounter Sanjay Abbasi PA-C Work Phone: [facility] [place] Comment on above: Medication Problem Start: 12-18-2022 Refill Sanjay Welch on PA-C Work Phone: [facility] [place] Comment on above: Refill Request Start: 11-28-2022 Refill Sanjay Welch on PA-C Work Phone: [facility] [place] Comment on above: Refill Request Start: 11-07-2022 End: 11-07-2022 Patient encounter procedure Sanjay Abbasi PA-C Work Phone: [facility] [place] Comment on above: Pressure injury of l eft thigh, stage 3 (HCC) (Primary Dx) Start: 10-20-2022 Telephone encounter Nehemiah Herbert MD Work Phone: [facility] [place] Comment on above: Orders Start: 10-10-2022 End: 10-10-2022 Patient encounter procedure Sanjay Abbasi PA-C Work Phone: [facility] [place] Comment on above: Pressure injury of s kin of thigh, unspecified injury stage, unspecified laterality (Primary Dx) Start: 10-06-2022 End: 10-06-2022 Patient encounter procedure Sanjay Abbasi PA-C Work Phone: [facility] [place] Comment on above: Skin ulcer, limited to breakdown of skin (HCC) (Primary Dx) Start: 10-05-2022 Refill Nehemiah Herbert MD Work Phone: [facility] [place] Comment on above: Refill Request Start: 10-02-2022 End: 10-02-2022 Patient encounter procedure Jose Luis Lancaster MD Work Phone: Neurology Comment on above: Functional tremor (P rimary Dx) Start: 09-28-2022 Refill Nehemiah Herbert MD Work Phone: [facility] [place] Comment on above: Refill Request Start: 09-22-2022 Refill Nehemiah Herbert MD Work Phone: [facility] [place] Comment on above: Refill Request Start: 09-21-2022 Nurse Triage Nehemiah Herbert MD Work Phone: [facility] [place] Comment on above: Erroneous encounter- disregard (See other phone note of today) Covid like symptoms Start: 09-20-2022 Telephone encounter Nehemiah Herbert MD Work Phone: [facility] [place] Comment on above: Order for a Lift Kylee ir Start: 09-18-2022 Telephone encounter Nehemiah Herbert MD Work Phone: [facility] [place] Comment on above: DME Orders Start: 09-06-2022 Telephone encounter Nehemiah Herbert MD Work Phone: [facility] [place] Comment on above: Problem with DME sup plier Start: 09-05-2022 Telephone encounter Nehemiah Herbert MD Work Phone: [facility] [place] Comment on above: Medication Problem Start: 09-04-2022 Refill Nehemiah Herbert MD Work Phone: [address] [place] [address] Comment on above: Refill Request Start: 08-28-2022 Telephone encounter Nehemiah Herbert MD Work Phone: [facility] [place] Comment on above: Orders Medication Request Patient Update Start: 08-24-2022 End: 08-24-2022 Patient encounter procedure Sanjay Abbasi PA-C Work Phone: [facility] [place] Comment on above: RLS (restless legs s yndrome) (Primary Dx) Start: 08-21-2022 Refill Nehemiah Herbert MD Work Phone: [facility] [place] Comment on above: Refill Request Start: 08-07-2022 Telephone encounter Nehemiah Herbert MD Work Phone: [facility] [place] Comment on above: Refill Request Start: 07-27-2022 End: 07-27-2022 Patient encounter procedure Nehemiah Herbert MD Work Phone: [facility] [place] Comment on above: Lumbar radiculopathy (Primary Dx); Type 2 diabetes mellitus with peripheral neuropathy (HCC); Diffuse myofascial pain syndrome; Essential hypertension, benign; DDD (degenerative disc disease), lumbar; DDD (degenerative disc disease), cervical; Bilateral primary osteoarthritis of knee; Chronic respiratory failure with hypoxia (HCC); Obstructive sleep apnea; Benign hypertensive heart disease with CHF, NYHA class 2 (HCC); SVT (supraventricular tachycardia) (HCC); Pain disorder with psychological factors; Gastroesophageal reflux disease without esophagitis; Primary hyperparathyroidism (HCC); Debility; Anxiety state; Major depressive disorder, recurrent episode, moderate (HCC); Tongue lesion Start: 06-27-2022 Telephone encounter Nehemiah Herbert MD Work Phone: [facility] [place] Comment on above: Results Start: 06-22-2022 Refill Nehemiah Herbert MD Work Phone: [facility] [place] Comment on above: Refill Request Start: 06-19-2022 Telephone encounter Nehemiah Herbert MD Work Phone: [facility] [place] Comment on above: Refill Request Start: 05-22-2022 Refill Nehemiah Herbert MD Work Phone: [facility] [place] Comment on above: Refill Request Start: 05-17-2022 Refill Nehemiah Herbert MD Work Phone: [facility] [place] Comment on above: Refill Request Start: 05-08-2022 End: 05-08-2022 Patient encounter fanny Abbasi PA-C Work Phone: [facility] [place] Comment on above: SVT (supraventricula r tachycardia) (HCC) (Primary Dx); Benign hypertensive heart disease with CHF, NYHA class 2 (HCC); Chronic respiratory failure with hypoxia (HCC); Obstructive sleep apnea; Morbid obesity (HCC); Type 2 diabetes mellitus with peripheral neuropathy (HCC); Primary hyperparathyroidism (HCC); Dysthymia; Major depressive disorder, recurrent episode, moderate (HCC); Pain disorder with psychological factors; Diaphragmatic hernia without obstruction and without gangrene; Gastroesophageal reflux disease without esophagitis; Diffuse myofascial pain syndrome; Lumbar facet arthropathy; DDD (degenerative disc disease), cervical; Spondylolisthesis, unspecified spinal region; Acute upper respiratory infection Start: 04-24-2022 Refill Nehemiah Herbert MD Work Phone: [facility] [place] Comment on above: Refill Request Start: 04-20-2022 Telephone encounter Nehemiah Herbert MD Work Phone: [facility] [place] Comment on above: Patient Update Start: 04-19-2022 Refill Nehemiah Herbert MD Work Phone: [facility] Comment on above: Refill Request Start: 04-03-2022 Refill Nehemiah Herbert MD Work Phone: [facility] Comment on above: Refill Request Start: 03-24-2022 End: 03-24-2022 Patient encounter procedure Nehemiah Herbert MD Work Phone: [facility] Comment on above: Cellulitis of buttoc k (Primary Dx); Urinary tract infection without hematuria, site unspecified; Bacteremia Start: 03-20-2022 Telephone encounter Nehemiah Herbert MD Work Phone: [facility] Comment on above: Medication Request Start: 03-09-2022 Telephone encounter Nehemiah Herbert MD Work Phone: [facility] Comment on above: Patient Update Start: 03-07-2022 End: 03-07-2022 Emergency department patient visit Dr. Nehemiah Herbert Work Phone: [facility] Start: 03-07-2022 ambulatory Nehemiah Herbert MD Work Phone: [facility] Comment on above: Dizziness Start: 03-07-2022 Telephone encounter Nehemiah Herbert MD Work Phone: [facility] Comment on above: Medication Problem Start: 03-06-2022 Refill Nehemiah Herbert MD Work Phone: [facility] Comment on above: Refill Request Transition Of Care Start: 03-04-2022 Non-patient / Non-visit Dr. Indra Herbert Work Phone: [facility] Start: 03-03-2022 Non-patient / Non-visit Dr. Indra Herbert Work Phone: [facility] Start: 03-02-2022 Non-patient / Non-visit Dr. Indra Herbert Work Phone: [facility] Start: 03-02-2022 End: 03-04-2022 Evaluation and management of inpatient Dr. Nehemiah Herbert Work Phone: [facility] 3 Start: 03-02-2022 ambulatory Nehemiah Herbert MD [facility] Phone: [facility] Comment on above: Right Hip Rash Start: 02-28-2022 Refill Nehemiah Herbert MD [facility] Comment on above: Refill Request Start: 02-16-2022 Telephone encounter Nehemiah Herbert MD Work Phone: [facility] [place] Comment on above: Results Orders (Urine sample Hat) Start: 02-15-2022 End: 02-15-2022 Patient encounter procedure Nehemiah Herbert MD [facility] Comment on above: Type 2 diabetes joe itus with peripheral neuropathy (HCC) (Primary Dx); SVT (supraventricular tachycardia) (HCC); Benign hypertensive heart disease with CHF, NYHA class 2 (HCC); Obstructive sleep apnea; Primary hyperparathyroidism (HCC); Hypercalcemia; DDD (degenerative disc disease), cervical; DDD (degenerative disc disease), lumbar; Anxiety state; Tremor; Screening for HIV (human immunodeficiency virus); Medication monitoring encounter Start: 02-06-2022 Refill Nehemiah Herbert MD Work Phone: [facility] Comment on above: Refill Request Start: 01-19-2022 Telephone encounter Nehemiah Herbert MD Work Phone: [facility] [place] Comment on above: Orders ([facility] cert and plan of care) Start: 01-11-2022 Refill Nehemiah Herbert MD Work Phone: [facility] [place] Comment on above: Refill Request Start: 01-09-2022 Refill Nehemiah Herbert MD Work Phone: [facility] [place] Comment on above: Refill Request Start: 12-16-2021 Telephone encounter Nehemiah Herbert MD Work Phone: [facility] [place] Comment on above: Forms Start: 12-05-2021 Telephone encounter Nehemiah Herbert MD Work Phone: [facility] Comment on above: Patient Question (Re questing medication not on current med list); Refill Request Refill Request Start: 11-30-2021 Refill Nehemiah Herbert MD Work Phone: [facility] [place] Comment on above: Refill Request Start: 11-24-2021 Refill Nehemiah Herbert MD Work Phone: [facility] [place] Comment on above: Refill Request Start: 11-21-2021 Telephone encounter Nehemiah Herbert MD Work Phone: [facility] [place] Comment on above: Results Start: 11-17-2021 End: 11-17-2021 Patient encounter procedure Nehemiah Herbert MD Work Phone: [facility] [place] Comment on above: Type 2 diabetes joe itus with peripheral neuropathy (HCC) (Primary Dx); Encounter for immunization; Benign hypertensive heart disease with CHF, NYHA class 2 (HCC); Primary hyperparathyroidism (HCC); DDD (degenerative disc disease), lumbar; Essential hypertension, benign; Obstructive sleep apnea; Diffuse myofascial pain syndrome; DDD (degenerative disc disease), cervical Start: 10-28-2021 Refill Nehemiah Herbert MD Work Phone: [facility] [place] Comment on above: Refill Request Start: 10-27-2021 Telephone encounter Nehemiah Herbert MD Work Phone: [facility] [place] Comment on above: Patient Update Start: 10-21-2021 Telephone encounter Nehemiah Herbert MD Work Phone: [facility] [place] Comment on above: Results; Patient Upd ate Start: 10-20-2021 End: 10-20-2021 Patient encounter procedure Jayden Samaniego MD Work Phone: Orthopaedics Comment on above: Chronic pain of left knee (Primary Dx); Primary osteoarthritis of left knee Start: 10-14-2021 Telephone encounter Nehemiah Herbert MD Work Phone: [facility] [place] Comment on above: Medication Problem Start: 10-13-2021 Telephone encounter Nehemiah Herbert MD Work Phone: [facility] [place] Comment on above: Patient Update Start: 10-12-2021 Refill Nehemiah Herbert MD Work Phone: [facility] [place] Comment on above: Refill Request Start: 10-10-2021 End: 10-10-2021 Patient encounter procedure Jayden Samaniego MD Work Phone: Orthopaedics Comment on above: Chronic pain of both knees (Primary Dx); Primary osteoarthritis of both knees Start: 10-03-2021 Telephone encounter Nehemiah Herbert MD Work Phone: [facility] [place] Comment on above: Refill Request Start: 09-28-2021 Refill Nehemiah Herbert MD Work Phone: [facility] [place] Comment on above: Refill Request Start: 09-26-2021 Refill Nehemiah Herbert MD Work Phone: [facility] [place] Comment on above: Refill Request Start: 09-22-2021 Telephone encounter Nehemiah Herbert MD Work Phone: [facility] Comment on above: blood sugars readiin g Start: 09-21-2021 End: 09-21-2021 Patient encounter procedure Keya Aparicio APRN.[employer] Work Phone: Plastic Surgery Comment on above: Pressure injury of r ight thigh, stage 3 (HCC) (Primary Dx); Pressure injury of left thigh, stage 3 (HCC); Physical debility Start: 09-12-2021 Refill Nehemiah Herbert MD Work Phone: [facility] Comment on above: Prescription Refills Results Start: 08-31-2021 Refill Nehemiah Herbert MD [facility] Phone: [facility] Comment on above: Refill Request Start: 08-29-2021 End: 08-29-2021 Patient encounter procedure Keya Aparicio APRN.[employer] Work Phone: Plastic Surgery Comment on above: Pressure injury of l eft thigh, stage 3 (HCC) (Primary Dx); Pressure injury of right thigh, stage 3 (HCC); Physical debility Start: 08-16-2021 Telephone encounter Nehemiah Herbert MD Work Phone: [facility] Comment on above: Results Start: 07-26-2021 Telephone encounter Jean triplett MD Work Phone: Endocrine Surgery Comment on above: Patient Update (Lab results) Results Start: 07-25-2021 End: 07-25-2021 Subsequent hospital visit by physician Jean Bhagat MD Work Phone: [facility] Comment on above: E83.51 Start: 07-25-2021 Telephone encounter Maris Acevedo RN Endocrine Surgery Comment on above: Post op complication s Patient Update Start: 07-24-2021 ambulatory Natalie Yan RN NURSE PRODUCER Comment on above: Post Op Start: 07-20-2021 Orders Only Jean matt MD Work Phone: Endocrine Surgery Comment on above: Primary hyperparathy roidism (HCC) (Primary Dx) Start: 07-19-2021 Refill Nehemiah Herbert MD Work Phone: [facility] Comment on above: Refill Request Start: 07-14-2021 Telephone encounter Maris Acevedo RN Endocrine Surgery Comment on above: PreOp Call Start: 07-13-2021 End: 07-13-2021 Refill Nehemiah Herbert MD Work Phone: [facility] Comment on above: Refill Request Pressure injury of r ight thigh, stage 3 (HCC) (Primary Dx); Pressure injury of left thigh, stage 3 (HCC); Physical debility Start: 07-07-2021 Telephone encounter Sylvia Chaves APRN.[employer] Work Phone: Pre Anesthesia Comment on above: Received Outside Med ical Records Start: 07-06-2021 End: 07-06-2021 Admission to establishment [facility] [place] [facility] Work Phone: [facility] Start: 07-06-2021 End: 07-06-2021 ambulatory [facility] [place] 1 Work Phone: Pre Anesthesia Comment on above: Pre-operative examin ation (Primary Dx); Primary hyperparathyroidism (HCC); Obstructive sleep apnea; Benign hypertensive heart disease with CHF, NYHA class 2 (HCC); Chronic respiratory failure with hypoxia (HCC); Debility; Diaphragmatic hernia without obstruction and without gangrene; Deep vein thrombosis (DVT) of proximal vein of left lower extremity, unspecified chronicity (HCC); Dysthymia; Gastroesophageal reflux disease without esophagitis; Type 2 diabetes mellitus with peripheral neuropathy (HCC); Liver disease; Former smoker; Pressure injury of skin of thigh, unspecified injury stage, unspecified laterality; Obesity, Class III, BMI >= 40 Start: 07-06-2021 End: 07-06-2021 Preprocedural examination done [facility] [place] [facility] Work Phone: Pre Anesthesia Start: 06-24-2021 ambulatory Jean matt MD Work Phone: Endocrine Surgery Comment on above: 07/20/21; MMOR; CURE ( Parathyroidectomy) Start: 06-21-2021 Telephone encounter Nehemiah Herbert MD Work Phone: [facility] [place] Comment on above: Patient Update; Medi cation Request Start: 06-16-2021 Telephone encounter Maris Acevedo RN Endocrine Surgery Comment on above: Patient Question Start: 06-15-2021 Telephone encounter Nehemiah Herbert MD Work Phone: [facility] [place] Comment on above: Maurice enamorado (re faxing orders to be signed by the doctor) Start: 06-08-2021 End: 06-08-2021 Patient encounter procedure Keya Aparicio APRN.[employer] Work Phone: Plastic Surgery Comment on above: Pressure injury of l eft thigh, stage 3 (HCC) (Primary Dx); Pressure injury of right thigh, stage 3 (HCC); Physical debility Start: 06-06-2021 Telephone encounter Nehemiah Herbert MD Work Phone: [facility] [place] Comment on above: Orders Start: 06-01-2021 Telephone encounter Nehemiah Herbert MD Work Phone: [facility] [place] Comment on above: Fax requested Start: 05-30-2021 Refill Nehemiah Herbert MD Work Phone: [facility] [place] Comment on above: Prescription Refills Start: 05-25-2021 End: 05-25-2021 Patient encounter procedure Keya Aparicio [employer] Work Phone: Plastic Surgery Comment on above: Pressure injury of r ight thigh, stage 3 (HCC) (Primary Dx); Physical debility Start: 05-19-2021 Telephone encounter Nehemiah Herbert MD Work Phone: [facility] [place] Comment on above: Results Start: 05-18-2021 ambulatory Nehemiah Herbert MD Work Phone: [facility] [place] Start: 05-16-2021 Telephone encounter Nehemiah Herbert MD Work Phone: [facility] [place] Comment on above: Long Term ReCe rtification Start: 04-20-2021 End: 04-20-2021 Subsequent hospital visit by physician Silvia [facility] Start: 03-12-2021 End: 03-12-2021 Emergency department patient visit Omi Crespo MD Work Phone: [facility] Comment on above: Acute COVID-19 (Prim cecile Dx); Hypoxia; Dyspnea and respiratory abnormalities; History of CHF (congestive heart failure) Start: 01-19-2021 End: 01-19-2021 Subsequent hospital visit by physician Silvano [facility] Comment on above: Hypercalcemia [E83.5 2] Start: 12-12-2018 End: 12-12-2018 Emergency department patient visit Gm Appiah MD Work Phone: [facility] Comment on above: Postoperative pain ( Primary Dx) Start: 12-04-2018 End: 12-05-2018 Subsequent hospital visit by physician Stuart Rowell Work Phone: [facility] Comment on above: Post-op pain (Primar y Dx); S/P recurrent ventral herniorrhaphy Start: 11-25-2018 End: 11-25-2018 Subsequent hospital visit by physician Stuart Rowell Work Phone: [facility] Comment on above: Arrived Start: 07-20-2017 Ambulatory CELSA ELIZONDO Facility :[facility] Start: 08-18-2008 End: 11-29-2011 Patient encounter status JOSE Abbasi CARLOS Work Phone: [facility] Procedures Date Procedure Procedure Detail Performing Clinician Start: 06-02-2024 Drug tst prsmv instr mnt chem analyzers pr date Joi A Humberto [employer] Work Phone: Start: 04-25-2024 Plain chest X-ray Dr. Bernardino Herbert MD Work Phone: Start: 11-17-2021 INFLUENZA VACCINE QUADRIVALENT 6 MO - 64 YRS IM Nehemiah Herbert MD Work Phone: Start: 10-20-2021 Arthrocentesis aspir &/inj major jt/bursa w/o us Jayden Samaniego MD Work Phone: Start: 10-10-2021 Arthrocentesis aspir &/inj major jt/bursa w/o us Jayden Samaniego MD Work Phone: Start: 07-20-2021 Us soft tissue head & neck real time imge bk Bhagat MD Work Phone: Start: 04-20-2021 Radiologic exam both knees standing anteropost Trevor Corrales MD Work Phone: Start: 03-12-2021 Radiologic exam ches t 2 views Omi Crespo MD Work Phone: Start: 03-12-2021 Comprehensive metabo lic panel Omi Crespo MD Work Phone: Start: 03-12-2021 COVID-19, FLU A/B, A ND RSV COMBO Omi Crespo MD Work Phone: Start: 01-19-2021 Parathyroid imaging w/tomographic spect & ct Silvia Fernández MD Work Phone: Start: 12-12-2018 CT ABDOMEN PELVIS W CONTRAST Tu Pierre APRN - [employer] Work Phone: Start: 12-12-2018 Comprehensive metabo lic panel Tu Pierre APRN - [employer] Work Phone: Start: 12-12-2018 Urnls dip stick/tabl et rgnt auto w/o microscopy Tu Pierre [employer] - [employer] Work Phone: Start: 12-12-2018 Blood count complete auto&auto difrntl wbc Tu Pierre [employer] - [employer] Work Phone: Start: 12-05-2018 Gluc bld gluc mntr d ev cleared fda spec home use [facility] [employer] [facility] Work Phone: Start: 12-05-2018 Gluc bld gluc mntr d ev cleared fda spec home use [facility] [employer] Work Phone: Start: 12-05-2018 Blood count complete automated [facility] [employer] [facility] Work Phone: Start: 12-05-2018 Comprehensive metabo lic panel [facility] [employer] [facility] Work Phone: Start: 12-05-2018 Hemoglobin glycosyla jose luis a1c Margarette Del Cid Work Phone: Start: 12-04-2018 Gluc bld gluc mntr d ev cleared fda spec home use [facility] [employer] [facility] Work Phone: Start: 12-04-2018 Gluc bld gluc mntr d ev cleared fda spec home use [facility] [employer] [facility] Work Phone: Start: 12-04-2018 OPERATIVE REPORT 3m Sca nning Start: 12-04-2018 Gluc bld gluc mntr d ev cleared fda spec home use [facility] [employer] [facility] Work Phone: Start: 12-04-2018 Gluc bld gluc mntr d ev cleared fda spec home use [facility] [employer] [facility] Work Phone: Start: 11-25-2018 Blood count complete auto&auto difrntl wbc Paul Olea Work Phone: Start: 11-25-2018 Blood count complete automated Paul Olea Work Phone: Start: 11-25-2018 Ecg routine ecg w/le ast 12 lds w/i&r Paul Lefty Work Phone: Start: 11-17-2015 Mammography Nehemiah Capellan MD Work Phone: Start: 01-09-2012 Colonoscopy Nehemiah Capellan MD Work Phone: Bacteria Detection (PCR) Dr. Nehemiah Herbert Work Phone: Bacteria identified in Blood by Culture Dr. Nehemiah Herbert Work Phone: Bacteria identified in Blood by Culture Dr. Nehemiah Herbert Work Phone: Investigation of transfusion reaction Dr. Nehemiah Herbert Work Phone: Investigation of transfusion reaction Dr. Nehemiah Herbert Work Phone: Microbial culture, routine D sheldon Herbert Work Phone: Microbial culture, routine D rMontrell Herbert Work Phone: SARS-CoV-2 & FLU Ant igen (Rapid) Dr. Nehemiah Herbert Work Phone: SARS-CoV-2 & FLU Ant igen (Rapid) Dr. Nehemiah Herbert Work Phone: Urine culture Dr. Nehemiah Capellan Work Phone: Urine culture Dr. Nehemiah Capellan Work Phone: Plan of Treatment Date Care Activity Detail Author Start: 10-17-2025 Annual PCP Team Chronic Disease Visit Annual PCP Team Chronic Disease Visit [facility] Start: 08-28-2025 Hepatitis B screening Urine Albumin:Creatinine Ratio [facility] Start: 08-18-2025 Annual PCP Team Chronic Disease Visit Annual PCP Team Chronic Disease Visit [facility] Start: 08-18-2025 Hepatitis B surface antibody level LDL Cholesterol [facility] Start: 08-18-2025 RSV Vaccine (1 - Risk 60-74 years 1-dose series) RSV Vaccine (1 - Risk 60-74 years 1-dose series) [facility] Comment on above: Postponed from 2020 (Declined at t his time) Start: 08-18-2025 Urine microalbumin profile DTaP,Tdap,Td Vaccine (1 - Tdap) [facility] Comment on above: Postponed from 02/08/2007 (Declined at t his time) Start: 08-08-2025 Annual PCP Team Chronic Disease Visit Annual PCP Team Chronic Disease Visit [facility] Start: 07-18-2025 Diabetic foot examination Diabetic Foot Exam [facility] Start: 06-18-2025 Annual PCP Team Chronic Disease Visit Annual PCP Team Chronic Disease Visit [facility] Start: 06-02-2025 Annual PCP Team Chronic Disease Visit Annual PCP Team Chronic Disease Visit [facility] Start: 04-29-2025 Annual PCP Team Chronic Disease Visit Annual PCP Team Chronic Disease Visit [facility] Start: 04-29-2025 BP Controlled (<130/80) BP Controlled (<130/80) [facility] Start: 03-13-2025 Annual PCP Team Chronic Disease Visit Annual PCP Team Chronic Disease Visit [facility] Start: 03-13-2025 BP Controlled (<130/80) BP Controlled (<130/80) [facility] Start: 03-13-2025 Screening for malignant neoplasm of cervix Cervical Cancer Screening [facility] Comment on above: Postponed from 11/16/2020 (Declined at t his time) Start: 02-17-2025 Hemoglobin A1c measurement HbA1C [facility] Start: 01-14-2025 Pneumococcal 0-64 years Vaccine (2 of 2 - PPSV23) Pneumococcal 0-64 years Vaccine (2 of 2 - PPSV23) [facility] Start: 01-07-2025 End: 01-07-2025 Patient encounter procedure 01/07/2025 2:00 PM EST Office Visit Family Artem [facility] [address] [place] [id number] Nehemiah Herbert MD [address] [place] [id number] 2 mo follow up Family Artem [place] Comment on above: 2 mo follow up Start: 12-17-2024 End: 03-18-2025 Hemoglobin A1c in Blood HEMOGLOBIN A1C Lab Routine Type 2 diabetes mellitus with peripheral neuropathy (HCC) Expected: 12/17/2024, Expires: 03/18/2025 [facility] Work Phone: Comment on above: Expected: 12/17/2024, Expires: Start: 11-08-2024 BP Controlled (<130/80) BP Controlled (<130/80) [facility] Start: 11-04-2024 Glaucoma screening Dilated Retinal Exam [facility] Start: 10-31-2024 End: 10-31-2024 Patient encounter procedure 10/31/2024 9:00 AM EDT Office Visit Neurology [address] [place] [address] Vero Mills APRN.[employer] [address] [place] [address] 1 month follow up Neurology Comment on above: 1 month follow up Start: 10-20-2024 [facility] Start: 10-17-2024 End: 10-17-2024 Patient encounter procedure 10/17/2024 9:00 AM EDT Office Visit Family [facility] [address] [place], [place] [id number] Nehemiah Herbert MD [address] [place] [address] 2 mo follow up Family [facility] Comment on above: 2 mo follow up Start: 10-01-2024 End: 12-31-2024 Hepatic function 2000 panel - Serum or Plasma HEPATIC FUNCTION PNL Lab Routine Mixed hyperlipidemia Expected: 10/01/2024, Expires: 12/31/2024 [facility] Work Phone: Comment on above: Expected: 10/01/2024, Expires: Start: 10-01-2024 End: 12-31-2024 Lipid 1996 panel - Serum or Plasma LIPID PANEL, FASTING Lab Routine Mixed hyperlipidemia Expected: 10/01/2024, Expires: 12/31/2024 [facility] Comment on above: Expected: 10/01/2024, Expires: Start: 09-22-2024 End: 09-22-2024 Patient encounter procedure 09/22/2024 1:00 PM EDT Office Visit Neurology [address] [place] [address] Vero Mills APRN.[employer] [address] [place] [address] 1 month follow up Neurology Comment on above: 1 month follow up Start: 09-11-2024 Annual PCP Team Chronic Disease Visit Annual PCP Team Chronic Disease Visit [facility] Start: 09-11-2024 End: 09-11-2024 Patient encounter procedure 09/11/2024 9:20 AM EDT Office Visit Family Medicine Jose Alfredo [address] [place] [address] Joi Markham APRN.[employer] [address] [place] [address] 6 month exam Family Medicine Jose Alfredo Comment on above: 6 month exam Start: 09-10-2024 Hemoglobin A1c measurement HbA1C [facility] Start: 08-18-2024 End: 11-17-2024 Comprehensive metabolic 2000 panel - Serum or Plasma [facility] Work Phone: Comment on above: Expected: 08/18/2024, Expires: Start: 08-18-2024 End: 11-17-2024 LIPID PANEL, NONFASTING [facility] Comment on above: Expected: 08/18/2024, Expires: Start: 08-18-2024 End: 11-17-2024 Microalbumin/Creatinine [Mass Ratio] in Urine ALBUMIN/CREATININE RATIO, URINE Lab Routine Type 2 diabetes mellitus with peripheral neuropathy (HCC) Expected: 08/18/2024, Expires: 11/17/2024 [facility] Comment on above: Expected: 08/18/2024, Expires: Start: 08-18-2024 End: 08-18-2024 Patient encounter procedure Neurology Comment on above: Obstructive sleep apnea [G47.33] Start: 08-08-2024 End: 08-08-2024 Follow-up encounter 08/08/2024 4:20 PM EDT [facility] Family Medicine Jose Alfredo [address] [place] [address] Nehemiah Herbert MD [address] [place] [address] medication follow up [facility] [place] Comment on above: medication follow up Start: 07-30-2024 End: 07-30-2024 Patient encounter procedure 07/30/2024 11:30 AM EDT Office Visit Pain Management [address] [facility] [address] [place] [address] Aleah Driscoll MD [address] [facility] [id number] [place] [address] DDD (degenerative disc disease), cervical [M50.30]; Diffuse myofascial pain syndrome [M79.18]; Bilateral primary osteoarthritis of knee [M17.0] Pain Management Comment on above: DDD (degenerative disc disease), cervica l [M50.30]; Diffuse myofascial pain syndrome [M79.18]; Bilateral primary osteoarthritis of knee [M17.0] Start: 06-30-2024 End: 06-30-2024 Follow-up encounter 06/30/2024 8:00 AM EDT [facility] [address] [place] [address] Joi Markham, W[employer] [address] [place] [address] 3 week pain follow up [facility] Comment on above: 3 week pain follow up Start: 06-19-2024 Diabetic foot examination Diabetic Foot Exam [facility] Comment on above: Postponed from 07/08/2023 (Postponed - N ot Clinically Indicated) Start: 06-18-2024 End: 06-18-2024 Follow-up encounter 06/18/2024 2:00 PM EDT [facility] [address] [place] [address] Nehemiah Herbert MD [address] [place] [address] Pain Medication follow up [facility] Comment on above: Pain Medication follow up Start: 06-02-2024 End: 09-01-2024 Basic metabolic 2000 panel - Serum or Plasma [facility] Comment on above: Expected: 06/02/2024, Expires: Start: 06-02-2024 End: 09-01-2024 C reactive protein [Mass/volume] in Serum or Plasma [facility] Comment on above: Expected: 06/02/2024, Expires: Start: 06-02-2024 End: 09-01-2024 CBC W Auto Differential panel - Blood [facility] Comment on above: Expected: 06/02/2024, Expires: Start: 06-02-2024 End: 09-01-2024 Nuclear Ab [Presence] in Serum by Immunoassay [facility] Comment on above: Expected: 06/02/2024, Expires: Start: 06-02-2024 End: 09-01-2024 Rheumatoid factor [Units/volume] in Serum or Plasma [facility] Work Phone: Comment on above: Expected: 06/02/2024, Expires: Start: 06-02-2024 End: 06-02-2024 Patient encounter procedure 06/02/2024 10:40 AM EDT Office Visit [facility] [place] [address], [place] [id number] Joi Markham, W[employer] [address] [place], [place] [id number] All Over Body Aches-Tylenol Arthritis/[place] not as effective. Wants to discuss referral to pain management. [facility] [place] Comment on above: All Over Body Aches-Tylenol Arthritis/No rco not as effective. Wants to discuss referral to pain management. Start: 05-29-2024 End: 08-28-2024 TOXICOLOGY SCREEN, ROUTINE URINE TOXICOLOGY SCREEN, ROUTINE URINE Lab Routine DDD (degenerative disc disease), cervical Lumbar facet arthropathy Diffuse myofascial pain syndrome Pain disorder with psychological factors Expected: 05/29/2024, Expires: 08/28/2024 [facility] Work Phone: Comment on above: Expected: 05/29/2024, Expires: Start: 05-28-2024 Annual PCP Team Chronic Disease Visit Annual PCP Team Chronic Disease Visit [facility] Start: 05-09-2024 BP Controlled (<130/80) BP Controlled (<130/80) [facility] inic Start: 04-29-2024 End: 04-29-2024 Patient encounter procedure 04/29/2024 10:40 AM EDT Office Visit [facility] [place] [address] [place] [address] Joi Markham APRN.[employer] [address] [place] [address] f/u sinus infection-continued headache, dizziness, and had some sharp chest pains a couple days ago-see triage note [facility] [place] Comment on above: f/u sinus infection-continued headache, dizziness, and had some sharp chest pains a couple days ago-see triage note Start: 04-25-2024 End: 04-25-2024 [facility] Start: 04-18-2024 Hepatitis B screening Urine Albumin:Creatinine Ratio [facility] Start: 04-16-2024 Hepatitis B surface antibody level LDL Cholesterol [facility] Start: 03-13-2024 End: 06-12-2024 Cobalamin (Vitamin B12) [Mass/volume] in Serum or Plasma [facility] Comment on above: Expected: 03/13/2024, Expires: Start: 03-13-2024 End: 06-12-2024 Comprehensive metabolic 2000 panel - Serum or Plasma [facility] Comment on above: Expected: 03/13/2024, Expires: Start: 03-13-2024 End: 06-12-2024 Hemoglobin A1c in Blood [facility] Comment on above: Expected: 03/13/2024, Expires: Start: 03-13-2024 End: 06-12-2024 Magnesium [Mass/volume] in Serum or Plasma [facility] Comment on above: Expected: 03/13/2024, Expires: Start: 03-13-2024 End: 06-12-2024 Thyrotropin [Units/volume] in Serum or Plasma [facility] Comment on above: Expected: 03/13/2024, Expires: Start: 03-10-2024 End: 03-10-2024 Patient encounter procedure Family Medicine Jose Alfredo Comment on above: 4 month follow up 4 month follow up- r equesting 2nd Shingles Vaccine Start: 02-28-2024 Hepatitis B screening Urine Albumin:Creatinine Ratio [facility] Start: 02-27-2024 Annual PCP Team Chronic Disease Visit Annual PCP Team Chronic Disease Visit [facility] Start: 02-27-2024 Hemoglobin A1c measurement HbA1C [facility] Start: 02-20-2024 Medicare [facility] Annual Wellness Visit Medicare Advantage Annual Wellness Visit [facility] Start: 01-04-2024 Shingrix Vaccine (2 of 2) Shingrix Vaccine (2 of 2) [facility] Start: 11-09-2023 End: 02-08-2024 TOXICOLOGY SCREEN, ROUTINE URINE TOXICOLOGY SCREEN, ROUTINE URINE Lab Routine DDD (degenerative disc disease), cervical Lumbar facet arthropathy Diffuse myofascial pain syndrome Pain disorder with psychological factors Expected: 11/09/2023, Expires: 02/08/2024 [facility] Work Phone: Comment on above: Expected: 11/09/2023, Expires: Start: 11-09-2023 End: 11-09-2023 Patient encounter procedure 11/09/2023 12:40 PM EDT Office Visit Family Medicine [facility] Alfredo [address] [facility] [address] Joi Markham, W[employer] [address] [place] [address] 6 week f/u/Shingrix Family Medicine [facility] Alfredo Comment on above: 6 week f/u/Shingrix Start: 11-08-2023 Annual PCP Team Chronic Disease Visit Annual PCP Team Chronic Disease Visit [facility] Start: 10-21-2023 Influenza [facility] Start: 10-11-2023 ANNUAL PCP TEAM CHRONIC DISEASE VISIT ANNUAL PCP TEAM CHRONIC DISEASE VISIT [facility] Start: 10-07-2023 ANNUAL PCP TEAM CHRONIC DISEASE VISIT ANNUAL PCP TEAM CHRONIC DISEASE VISIT [facility] Start: 09-19-2023 End: 09-19-2023 Patient encounter procedure Family Medicine [facility] Alfredo Comment on above: follow up 3 months resched 08/28/2023 f/u shingles/ follow up 3 months resched 08/28/2023 Start: 09-12-2023 End: 09-12-2023 Patient encounter procedure 09/12/2023 11:20 AM EDT Office Visit Family Medicine Jose Alfredo [address] [place] [address] Clarita Mathews, [employer] [address] [place] [address] Shingles. See triage. Family Medicine [facility] Alfredo Comment on above: Shingles. See triage. Start: 08-28-2023 End: 08-28-2023 Patient encounter procedure [facility] Jose Alfredo Comment on above: follow up 3 months Start: 08-27-2023 Hemoglobin A1c measurement HbA1C [facility] Start: 08-27-2023 End: 08-27-2023 ambulatory 08/27/2023 10:00 AM EDT Results Only Jose Alfredo [facility] Draw Station [address] [place] [address] [facility] Start: 08-25-2023 ANNUAL PCP TEAM CHRONIC DISEASE VISIT ANNUAL PCP TEAM CHRONIC DISEASE VISIT [facility] Start: 08-25-2023 BP CONTROLLED (<130/80) BP CONTROLLED (<130/80) [facility] in Start: 08-25-2023 End: 11-27-2023 Hemoglobin A1c in Blood HGB A1C Lab Routine Type 2 diabetes mellitus with peripheral neuropathy (HCC) Expected: 08/25/2023, Expires: 11/27/2023 [facility] Work Phone: Comment on above: Expected: 08/25/2023, Expires: Start: 07-28-2023 ANNUAL PCP TEAM CHRONIC DISEASE VISIT ANNUAL PCP TEAM CHRONIC DISEASE VISIT [facility] Start: 07-28-2023 SHINGRIX VACCINE (1 of 2) SHINGRIX VACCINE (1 of 2) [facility] Comment on above: Postponed from 01/14/2010 (Declined at t his time) Start: 07-28-2023 Urine microalbumin profile [facility] Comment on above: Postponed from 02/08/2007 (Declined at t his time) Start: 07-08-2023 3 comp foot exam completed DIABETIC FOOT EXAM [facility] Start: 07-08-2023 Diabetic foot examination Diabetic Foot Exam [facility] Start: 05-26-2023 Glaucoma screening Dilated Retinal Exam [facility] Start: 05-26-2023 Hepatitis C antibody, confirmatory test DILATED RETINAL EXAM [facility] Start: 05-09-2023 ANNUAL PCP TEAM CHRONIC DISEASE VISIT ANNUAL PCP TEAM CHRONIC DISEASE VISIT [facility] Start: 05-09-2023 BP CONTROLLED (<130/80) BP CONTROLLED (<130/80) [facility] Start: 04-05-2023 BP CONTROLLED (<130/80) BP CONTROLLED (<130/80) [facility] Start: 04-04-2023 End: 07-04-2023 ALBUMIN/CREAT RATIO RND UR ALBUMIN/CREAT RATIO RND UR Lab Routine Type 2 diabetes mellitus with peripheral neuropathy (HCC) Expected: 04/04/2023, Expires: 07/04/2023 [facility] Work Phone: Comment on above: Expected: 04/04/2023, Expires: 4 Start: 04-04-2023 End: 07-04-2023 Lipid 1996 panel - Serum or Plasma LIPID PANEL BASIC Lab Routine Type 2 diabetes mellitus with peripheral neuropathy (HCC) Expected: 04/04/2023, Expires: 07/04/2023 [facility] Work Phone: Comment on above: Expected: 04/04/2023, Expires: 4 Start: 03-27-2023 BP CONTROLLED (<130/80) BP CONTROLLED (<130/80) [facility] Start: 03-24-2023 ANNUAL PCP TEAM CHRONIC DISEASE VISIT ANNUAL PCP TEAM CHRONIC DISEASE VISIT [facility] Start: 03-10-2023 ANNUAL PCP TEAM CHRONIC DISEASE VISIT ANNUAL PCP TEAM CHRONIC DISEASE VISIT [facility] Start: 03-10-2023 BP CONTROLLED (<130/80) BP CONTROLLED (<130/80) [facility] Start: 02-22-2023 Hepatitis B screening URINE ALBUMIN:CREATININE RATIO [facility] Start: 02-15-2023 ANNUAL PCP TEAM CHRONIC DISEASE VISIT ANNUAL PCP TEAM CHRONIC DISEASE VISIT [facility] Start: 02-15-2023 BP CONTROLLED (<130/80) BP CONTROLLED (<130/80) [facility] Start: 01-26-2023 End: 04-27-2023 ALBUMIN/CREAT RATIO RND UR ALBUMIN/CREAT RATIO RND UR Lab Routine Type 2 diabetes mellitus with peripheral neuropathy (HCC) Expected: 01/26/2023, Expires: 04/27/2023 [facility] Work Phone: Comment on above: Expected: 01/26/2023, Expires: 4 Start: 01-26-2023 End: 04-27-2023 CBC panel - Blood by Automated count CBC Lab Routine Anxiety state Essential hypertension, benign Type 2 diabetes mellitus with peripheral neuropathy (HCC) Expected: 01/26/2023, Expires: 04/27/2023 [facility] Work Phone: Comment on above: Expected: 01/26/2023, Expires: Start: 01-26-2023 End: 04-27-2023 Comprehensive metabolic 2000 panel - Serum or Plasma COMP METABOLIC PANEL Lab Routine Anxiety state Essential hypertension, benign Hypercalcemia Type 2 diabetes mellitus with peripheral neuropathy (HCC) Expected: 01/26/2023, Expires: 04/27/2023 [facility] Work Phone: Comment on above: Expected: 01/26/2023, Expires: Start: 01-26-2023 End: 04-27-2023 Hemoglobin A1c in Blood HGB A1C Lab Routine Type 2 diabetes mellitus with peripheral neuropathy (HCC) Expected: 01/26/2023, Expires: 04/27/2023 [facility] Work Phone: Comment on above: Expected: 01/26/2023, Expires: Start: 2023 End: 04-16-2023 Bacteria identified in Urine by Culture [facility] Work Phone: Comment on above: Expected: 2023, Expires: 4 Start: 2023 End: 04-16-2023 Urinalysis complete panel - Urine [facility] Work Phone: Comment on above: Expected: 2023, Expires: 4 Start: 11-17-2022 ANNUAL PCP TEAM CHRONIC DISEASE VISIT ANNUAL PCP TEAM CHRONIC DISEASE VISIT [facility] Start: 11-17-2022 BP CONTROLLED (<130/80) BP CONTROLLED (<130/80) [place] Start: 11-17-2022 Hepatitis B surface antibody level LDL CHOLESTEROL [facility] Start: 11-08-2022 Hemoglobin A1c/Hemoglobin.total in Blood HBA1C [facility] Start: 10-20-2022 Influenza vaccination [facility] Start: 08-29-2022 BP CONTROLLED (<130/80) BP CONTROLLED (<130/80) [facility] Start: 08-24-2022 End: 10-24-2022 CBC panel - Blood by Automated count CBC Lab Routine RLS (restless legs syndrome) Expected: 08/24/2022, Expires: 10/24/2022 [facility] Work Phone: Comment on above: Expected: 08/24/2022, Expires: 3 Start: 08-24-2022 End: 10-24-2022 Iron and Iron binding capacity panel - Serum or Plasma IRON + TIBC Lab Routine RLS (restless legs syndrome) Expected: 08/24/2022, Expires: 10/24/2022 [facility] Work Phone: Comment on above: Expected: 08/24/2022, Expires: 3 Start: 08-16-2022 Hemoglobin A1c/Hemoglobin.total in Blood HBA1C [facility] Start: 08-12-2022 ANNUAL PCP TEAM CHRONIC DISEASE VISIT ANNUAL PCP TEAM CHRONIC DISEASE VISIT [facility] Start: 08-12-2022 BP CONTROLLED (<130/80) BP CONTROLLED (<130/80) [facility] Start: 08-12-2022 HPV TESTING HPV TESTING [facility] Comment on above: Postponed from 11/16/2020 (Declined at t his time) Start: 08-12-2022 PAP TESTING PAP TESTING [facility] Comment on above: Postponed from 11/16/2020 (Declined at t his time) Start: 07-06-2022 BP CONTROLLED (<130/80) BP CONTROLLED (<130/80) [facility] Start: 06-19-2022 End: 08-19-2022 Basic metabolic 2000 panel - Serum or Plasma BASIC METABOLIC PNL Lab Routine Essential hypertension, benign Expected: 06/19/2022, Expires: 08/19/2022 [facility] Work Phone: Comment on above: Expected: 06/19/2022, Expires: 3 Start: 06-08-2022 BP CONTROLLED (<130/80) BP CONTROLLED (<130/80) [facility] Start: 05-23-2022 Hepatitis C antibody, confirmatory test DILATED RETINAL EXAM [facility] Start: 05-20-2022 3 comp foot exam completed DIABETIC FOOT EXAM [facility] Start: 05-17-2022 Hemoglobin A1c/Hemoglobin.total in Blood HBA1C [facility] Start: 05-08-2022 End: 07-08-2022 25-hydroxyvitamin D3 [Mass/volume] in Serum or Plasma [facility] Work Phone: Comment on above: Expected: 05/08/2022, Expires: 3 Start: 05-08-2022 End: 07-08-2022 Comprehensive metabolic 2000 panel - Serum or Plasma [facility] Work Phone: Comment on above: Expected: 05/08/2022, Expires: 3 Start: 05-08-2022 End: 07-08-2022 Parathyrin.intact [Mass/volume] in Serum or Plasma [facility] Work Phone: Comment on above: Expected: 05/08/2022, Expires: 3 Start: 05-02-2022 ANNUAL PCP TEAM CHRONIC DISEASE VISIT ANNUAL PCP TEAM CHRONIC DISEASE VISIT [facility] Start: 03-12-2022 Creatinine measurement Creatinine monitoring [facility] Start: 03-12-2022 Potassium monitoring Potassium monitoring [facility] Start: 03-07-2022 Referral to service [facility] Start: 03-04-2022 Patient discharge [facility] Start: 03-03-2022 Patient referral to dietitian [facility] Start: 03-03-2022 Physiotherapy of chest [facility] Start: 03-02-2022 Dual pressure spontaneous ventilation support [facility] Start: 03-02-2022 Application of intermittent pneumatic compression device [facility] Start: 03-02-2022 Application of elastic bandage [facility] Start: 03-02-2022 Aspiration precautions [facility] Start: 03-02-2022 Assessment of risk of venous thromboembolism [facility] Start: 03-02-2022 Care regimes management [facility] Start: 03-02-2022 Consultation for treatment [facility] Start: 03-02-2022 Continuous pulse oximetry [facility] Start: 03-02-2022 Deep breathing and coughing exercises [facility] Start: 03-02-2022 Elevation of affected extremity [facility] Start: 03-02-2022 Fall prevention [facility] Start: 03-02-2022 Incentive spirometry [facility] Start: 03-02-2022 Insertion of catheter into peripheral vein [facility] Start: 03-02-2022 Introduction of urinary catheter [facility] Start: 03-02-2022 Measuring intake and output [facility] Start: 03-02-2022 Methicillin resistant Staphylococcus aureus screening test [facility] Start: 03-02-2022 Oxygen therapy [facility] Start: 03-02-2022 Patient referral to dietitian [facility] Start: 03-02-2022 Providing care according to standard [facility] Start: 03-02-2022 Provision of activity privileges [facility] Start: 03-02-2022 Referral to occupational therapist [facility] Start: 03-02-2022 Referral to service [facility] Start: 03-02-2022 Wound care [facility] Start: 03-02-2022 Bacterial nucleic acid assay [facility] Work Phone: Start: 03-02-2022 End: 03-02-2022 [facility] Start: 03-02-2022 Verification routine [facility] Work Phone: Start: 03-02-2022 Following clinical pathway protocol [facility] Start: 03-02-2022 Admission procedure [facility] Start: 03-02-2022 End: 03-02-2022 [facility] Work Phone: Start: 03-02-2022 Blood culture [facility] Work Phone: Start: 02-15-2022 End: 04-17-2022 ALBUMIN/CREAT RATIO RND UR ALBUMIN/CREAT RATIO RND UR Lab Routine Type 2 diabetes mellitus with peripheral neuropathy (HCC) Expected: 02/15/2022, Expires: 04/17/2022 [facility] Work Phone: Comment on above: Expected: 02/15/2022, Expires: 3 Start: 02-15-2022 End: 04-17-2022 TOX SCREEN ROUT UR TOX SCREEN ROUT UR Lab Routine DDD (degenerative disc disease), cervical DDD (degenerative disc disease), lumbar Medication monitoring encounter Expected: 02/15/2022, Expires: 04/17/2022 [facility] Work Phone: Comment on above: Expected: 02/15/2022, Expires: 3 Start: 01-24-2022 Hepatitis B screening URINE ALBUMIN:CREATININE RATIO [facility] Start: 01-08-2022 Colon cancer screen colonoscopy Colon cancer screen colonoscopy [place], [place] Start: 01-08-2022 Colonoscopy COLONOSCOPY [facility] Start: 01-08-2022 COLORECTAL CANCER SCREENING COLORECTAL CANCER SCREENING [facility] Start: 01-08-2022 Screening for malignant neoplasm of colon [facility] Start: 01-06-2022 Hemoglobin A1c/Hemoglobin.total in Blood HBA1C [facility] Start: 11-17-2021 End: 11-17-2022 CBC W Auto Differential panel - Blood [facility] Work Phone: Comment on above: Expected: 11/17/2021, Expires: 3 Start: 11-17-2021 End: 11-17-2022 Comprehensive metabolic 2000 panel - Serum or Plasma [facility] Work Phone: Comment on above: Expected: 11/17/2021, Expires: 3 Start: 11-17-2021 End: 01-17-2022 Hemoglobin A1c in Blood [facility] Work Phone: Comment on above: Expected: 11/17/2021, Expires: 2 Start: 11-17-2021 End: 01-17-2022 LIPID PANEL, NONFASTING [facility] Work Phone: Comment on above: Expected: 11/17/2021, Expires: 2 Start: 10-20-2021 Influenza vaccination INFLUENZA (#1) [facility] Start: 08-16-2021 End: 10-16-2021 CBC W Auto Differential panel - Blood CBC + DIFF Lab Routine Leukocytosis, unspecified type Expected: 08/16/2021, Expires: 10/16/2021 [facility] Work Phone: Comment on above: Expected: 08/16/2021, Expires: 2 Start: 08-16-2021 End: 10-16-2021 RETIC COUNT RETIC COUNT Lab Routine Leukocytosis, unspecified type Expected: 08/16/2021, Expires: 10/16/2021 [facility] Work Phone: Comment on above: Expected: 08/16/2021, Expires: 2 Start: 07-20-2021 Hepatitis C antibody, confirmatory test DILATED RETINAL EXAM [facility] Comment on above: Postponed from 11/16/2019 ([facility] Start: 06-27-2021 End: 06-24-2022 SARS-CoV-2 (COVID-19) RNA [Presence] in Respiratory specimen by [facility] with probe detection PRE-PROCEDURE & PRE-OPERATIVE COVID Microbiology Routine Primary hyperparathyroidism (HCC) Expected: 06/27/2021, Expires: 06/24/2022 [facility] Work Phone: Comment on above: Expected: 06/27/2021, Expires: 3 Start: 06-23-2021 Hemoglobin A1c/Hemoglobin.total in Blood HBA1C [facility] Start: 05-19-2021 Hepatitis B surface antibody level LDL CHOLESTEROL [facility] Start: 05-14-2021 3 comp foot exam completed DIABETIC FOOT EXAM [facility] Start: 11-16-2020 HPV TESTING HPV TESTING [facility] Start: 11-16-2020 PAP TESTING PAP TESTING [facility] Start: 11-16-2020 Screening for malignant neoplasm of cervix [facility] Start: 2020 Hepatitis B Vaccine (1 of 3 - Risk 3-dose series) Hepatitis B Vaccine (1 of 3 - Risk 3-dose series) [facility] Start: 2020 RSV Vaccine (1 - 1-dose 60+ series) RSV Vaccine (1 - 1-dose 60+ series) [facility] Start: 2020 RSV Vaccine (1 - Risk 60-74 years 1-dose series) RSV Vaccine (1 - Risk 60-74 years 1-dose series) [facility] Start: 12-06-2019 A1C test (Diabetic or Prediabetic) A1C test (Diabetic or Prediabetic) [place] Start: 12-06-2019 Creatinine monitoring Creatinine monitoring [place], [place] Start: 12-06-2019 Hemoglobin A1c measurement A1C test (Diabetic or Prediabetic) [facility] Start: 12-06-2019 Potassium monitoring Potassium monitoring [place], [place] Start: 11-16-2019 Hepatitis C antibody, confirmatory test DILATED RETINAL EXAM [facility] Start: 08-22-2019 Creatinine monitoring Creatinine monitoring [place], [place] Start: 12-18-2018 End: 12-18-2018 Patient encounter procedure 12/18/2018 Office Visit General Surgery Gen Surg - DAI Start: 12-04-2018 End: 12-04-2018 Appointment 12/04/2018 Appointment General Surgery Stuart Rowell MD [address] [place] [address], [address] [place] [address] [phone] [facility] General Surgery Start: 10-20-2018 Influenza vaccination Flu vaccine (#1) [place] Start: 08-08-2018 Annual Wellness Visit (AWV) Annual Wellness Visit (AWV) [facility] Start: 05-21-2018 A1C test (Diabetic or Prediabetic) A1C test (Diabetic or Prediabetic) [place] Start: 05-21-2018 Potassium monitoring Potassium [place] Start: 03-19-2018 Diabetic microalbuminuria test Diabetic microalbuminuria test [place] Start: 03-19-2018 Lipid panel Lipid screen [facility] Start: 03-19-2018 Lipid screen Lipid screen [place] Start: 03-19-2018 Urine screening for protein Diabetic microalbuminuria test [facility] Start: 11-16-2016 Mammography [facility] Start: 11-16-2016 Screening for malignant neoplasm of breast Mammogram Screening [facility] Start: 07-19-2016 Diabetic retinal exam Diabetic retinal exam [facility] Start: 09-21-2012 FECAL OCCULT BLOOD FECAL OCCULT BLOOD [facility] Start: 09-21-2012 Screening for malignant neoplasm of colon Fecal Occult Blood [facility] Start: 12-22-2010 PNEUMOCOCCAL (2 - PCV) PNEUMOCOCCAL (2 - PCV) [facility] Start: 01-14-2010 Breast cancer screen Breast cancer screen [place] Start: 01-14-2010 Screening for malignant neoplasm of breast Breast cancer screen [facility] Start: 01-14-2010 Shingles Vaccine (1 of 2) Shingles Vaccine (1 of 2) [facility] Start: 01-14-2010 SHINGRIX VACCINE (1 of 2) SHINGRIX VACCINE (1 of 2) [facility] Start: 02-08-2007 Urine microalbumin profile [facility] Start: 01-14-2005 COLOGUARD (FIT-DNA) COLOGUARD (FIT-DNA) [facility] Start: 01-14-[address] COLONOGRAPHY [facility] Start: 01-14-2005 Screening for malignant neoplasm of colon [facility] Start: 01-14-2005 SIGMOIDOSCOPY SIGMOIDOSCOPY [facility] Start: 01-14-1990 Screening for malignant neoplasm of cervix [facility] Start: 01-14-1981 Cervical cancer screen Cervical cancer screen [place] Start: 01-14-1981 Screening for malignant neoplasm of cervix Pap smear [facility] Start: 01-14-1979 DTaP/Tdap/Td vaccine (1 - Tdap) DTaP/Tdap/Td vaccine (1 - Tdap) [facility] Start: 01-14-1979 Hepatitis B Vaccine (1 of 3 - Risk 3-dose series) Hepatitis B Vaccine (1 of 3 - Risk 3-dose series) [place] Start: 01-14-1978 BP CONTROLLED (<130/80) BP CONTROLLED (<130/80) [facility] Start: 01-14-1978 HIV SCREENING HIV SCREENING [facility] Start: 01-14-1975 HIV screen HIV screen [place] Start: 01-14-1975 HIV screening HIV screen [facility] Start: 1972 Depression Monitoring Depression Monitoring [facility] Start: 01-14-1970 [object Object] Diabetic foot exam [place] Start: 01-14-1970 Diabetic foot examination Diabetic foot exam [facility] Start: 01-14-1965 COVID-19 Vaccine (1) COVID-19 Vaccine (1) [facility] Start: 1960 Hepatitis C screen Hepatitis C screen [place], [place] Start: 1960 Hepatitis C screening Hepatitis C screen [facility] Bacteria identified in Blood by Culture Blood Culture [facility] Work Phone: Bacteria identified in Urine by Culture Urine Culture [facility] Work Phone: Bacteria identified in Urine by Culture BACTERIAL CULTURE, URINE Microbiology Routine Diffuse myofascial pain syndrome 06/02/2024 12:20 PM EDT [facility] Blood culture [facility] Work Phone: COLOGUARD COLOGUARD Lab Ro utine Screening for colon cancer Ordered: 08/18/2024 [facility] Comment on above: Ordered: 08/18/2024 End: 04-10-2025 DBT Breast - bilateral screening JOSÉ ANTONIO SCREENING W RADHA Radiology Routine Encounter for screening mammogram for breast cancer 1 Occurrences starting 03/11/2024 until 04/10/2025 [facility] Work Phone: Comment on above: 1 Occurrences starting 03/11/2024 until 04/10/2025 End: 09-17-2025 DBT Breast - bilateral screening JOSÉ ANTONIO SCREENING W RADHA Radiology Routine Encounter for screening mammogram for breast cancer 1 Occurrences starting 08/18/2024 until 09/17/2025 [facility] Comment on above: 1 Occurrences starting 08/18/2024 until 09/17/2025 EKG 12 lead EKG 12 lead ECG STAT 11/25/2018 10:34 AM EDT [place] Hemoglobin.gastroint sidney nal.lower [Presence] in Stool by Immunoassay IMMUNOCHEMICAL FECAL OCCULT BLOOD TEST Lab Routine Screening for colon cancer Ordered: 03/13/2024 [facility] Work Phone: Comment on above: Ordered: 03/13/2024 Incentive spirometry Incentive s pirometry Respiratory Care Routine Every 2hr while awake until discontinued starting 12/04/2018 [facility] [place] Comment on above: Every 2hr while awake until discontinued starting 12/04/2018 Influenza virus A an d B RNA and SARS-CoV-2 (COVID-19) N gene panel - Respiratory specimen by FIONA with probe detection COVID WITH FLUA+B, ROUTINE Microbiology Routine Acute upper respiratory infection 05/08/2022 10:45 AM EDT [facility] Work Phone: Initiate Oxygen Ther [facility] Comment on above: Daily until discontinued starting 2018 End: 05-10-2024 MG Breast Screening JOSÉ ANTONIO SCREENING Radiology Routine Encounter for screening mammogram for breast cancer 1 Occurrences starting 04/11/2023 until 05/10/2024 [facility] Work Phone: Comment on above: 1 Occurrences starting 04/11/2023 until 05/10/2024 Nasal Cannula Oxygen Nasal Cannu la Oxygen Respiratory Care STAT Daily until discontinued starting 03/12/2021 [facility] Work Phone: Comment on above: Daily until discontinued starting [address] Patient [address] [facility] Work Phone: Patient referral [facility] Work Phone: [facility] Comment on above: 4X Daily (AC & HS) until discontinued st arting 12/04/2018 As Needed until disc ontinued starting 12/04/2018 End: 03-12-2021 PROCALCITONIN [facility] Work Phone: Comment on above: One Time for 1 Occurrences starting 02/20 until 03/12/2021 End: 12-04-2018 Pulse Oximetry Spot Check Pulse Oximetry Spot Check Respiratory Care Routine One Time for 1 Occurrences starting 12/04/2018 until 12/04/2018 [facility] on above: One Time for 1 Occurrences starting 11/19 until 12/04/2018 End: 08-26-2023 Radex spine lumbosacral 2/3 views XR LUMBAR GENERAL 3V AP/LAT/L5-S1 Radiology Routine Lumbar radiculopathy DDD (degenerative disc disease), lumbar DDD (degenerative disc disease), cervical Bilateral primary osteoarthritis of knee 1 Occurrences starting 07/27/2022 until 08/26/2023 [facility] Work Phone: Comment on above: 1 Occurrences starting 07/27/2022 until 08/26/2023 REFER FOR ADMIT INTERVIEW REFER FOR ADMIT INTERVIEW Procedures Routine Primary hyperparathyroidism (HCC) Ordered: 06/27/2021 [facility] Work Phone: Comment on above: Ordered: 06/27/2021 End: 06-17-2022 Screening mammography bi 2-view breast inc cad JOSÉ ANTONIO SCREENING Radiology Routine Encounter for screening mammogram for breast cancer 1 Occurrences starting 05/18/2021 until 06/17/2022 [facility] Work Phone: Comment on above: 1 Occurrences starting 05/18/2021 until 06/17/2022 End: 12-04-2018 Surgical Pathology Surgical Pathology Lab Routine Once for 1 Occurrences starting 12/04/2018 until 12/04/2018 [facility] [place] Comment on above: Once for 1 Occurrences starting 12/05/19 19 until 12/04/2018 Surgical Pathology Surgical Path ology Lab Routine 12/04/2018 9:36 AM EDT [facility] [place] Troponin T.cardiac [Mass/volume] in Serum or Plasma by High sensitivity method [facility] Vancomycin [Mass/vol ume] in Serum or Plasma --trough [facility] Work Phone: [facility] Clini [facility] Immunizations Immunization Date Immunization Notes Care Provider Ita quigley 03-13-2024 zoster vaccine recombinant Joi Suppan [employer] Work Phone: [facility] 11-09-2023 influenza, seasonal, injectable Joi Suppan [employer] Work Phone: [facility] 11-09-2023 zoster vaccine recombinant Joi Suppan [employer] Work Phone: [facility] 11-09-2023 influenza virus vaccine, unspecified formulation Nehemiah Herbert MD Work Phone: [facility] 02-26-2023 influenza, injectabl e, quadrivalent, contains preservative NA Abbasi PA-C Work Phone: [facility] 02-26-2023 influenza virus vaccine, unspecified formulation NA Abbasi PA-C Work Phone: [facility] 11-17-2021 pneumococcal Conjuga te, unspecified formulation Nehemiah Herbert MD Work Phone: [facility] Work Phone: 11-17-2021 influenza, injectabl e, quadrivalent, contains preservative Nehemiah Herbert MD Work Phone: [facility] 11-17-2021 pneumococcal (PCV20) vaccine, 20 valent (PREVNAR 20) Nehemiah Herbert MD Work Phone: [facility] 11-17-2021 influenza virus vaccine, unspecified formulation NA Abbasi PA-C Work Phone: [facility] 12-13-2020 influenza, injectabl e, quadrivalent, contains preservative Nehemiah Herbert MD Work Phone: [facility] 11-18-[address] Nehemiah Herbert Work Phone: [facility] 11-18-2020 influenza, injectabl e, quadrivalent, preservative free NA Abbasi PA-C Work Phone: [facility] 11-18-2020 influenza, seasonal, injectable, preservative free Nehemiah Herbert MD Work Phone: [facility] 07-29-2020 COVID-19 vaccine, fu ll dose (MODERNA) Nehemiah Herbert MD Work Phone: [facility] 07-09-2020 COVID-19 vaccine, fu ll dose (MODERNA) Nehemiah Herbert MD Work Phone: [facility] 06-28-2020 COVID-19 vaccine, fu ll dose (MODERNA) Nehemiah Herbert MD Work Phone: [facility] 06-11-2020 COVID-19 vaccine, fu ll dose (MODERNA) Nehemiah Herbert MD Work Phone: [facility] 12-05-2018 influenza, injectabl e, quadrivalent, preservative free [facility] 12-05-2018 influenza quadrivale nt split vaccine (FLUZONE;FLUARIX;FLULAV AL;AFLURIA) injection 0.5 mL [place], [place] 11-26-[address] Nehemiah Herbert Work Phone: [facility] 11-26-2017 influenza, injectabl e, quadrivalent, preservative free JOSE Abbasi PA-C Work Phone: [facility] 11-26-2017 influenza, seasonal, injectable, preservative free Nehemiah Herbert MD Work Phone: [facility] 11-02-2017 influenza, injectabl e, quadrivalent, contains preservative Nehemiah Herbert MD Work Phone: [facility] 11-20-2016 influenza, injectabl e, quadrivalent, contains preservative [facility] 11-20-2016 influenza, seasonal, injectable Nehemiah Herbert MD Work Phone: [facility] 11-17-2015 influenza, injectabl e, quadrivalent, contains preservative Nehemiah Herbert MD Work Phone: [facility] 12-17-2014 influenza, seasonal, injectable Nehemiah Herbert MD Work Phone: [facility] 12-03-2013 influenza, seasonal, injectable Nheemiah Herbert MD Work Phone: [facility] 11-23-2012 influenza virus vaccine, unspecified formulation Nehemiah Herbert MD Work Phone: [facility] Work Phone: 11-24-2010 influenza virus vaccine, unspecified formulation Nehemiah Herbert MD Work Phone: [facility] 12-22-2009 pneumococcal polysaccharide vaccine, 23 valent Nehemiah Herbert MD Work Phone: [facility] Work Phone: 12-16-2009 influenza virus vaccine, unspecified formulation Nehemiah Herbert MD Work Phone: [facility] 12-03-2008 influenza virus vaccine, unspecified formulation Nehemiah Herbert MD Work Phone: [facility] 12-24-2007 influenza virus vaccine, unspecified formulation Nehemiah Herbert MD Work Phone: [facility] Work Phone: 02-07-2007 tetanus and diphther ia toxoids, adsorbed, preservative free, for adult use (2 Lf of tetanus toxoid and 2 Lf of diphtheria toxoid) Nehemiah Herbert MD Work Phone: [facility] Work Phone: 12-19-2006 influenza virus vaccine, unspecified formulation Nehemiah Herbert MD Work Phone: [facility] Work Phone: Payers Date Payer Category Payer Self-pay [id number] 2023 [facility] [id number] 2014 Medicaid [id number] 2014 Medicare [id number] 2014 Medicare [id number] 2014 Medicare (Managed Care) [facility] MEDIC[facility] [id number] 2014 Unknown [facility] D[facility] xxxxxxxxxxx 2014-Present [address] [place] [address] xxxxxxxxxxx [id number] 2014 Medicare [id number] Unknown [id number] Unknown [id number] Unknown [id number] Unknown [id number] Unknown [id number] Unknown [id number] Unknown [id number] Social History Date Type Detail Facility Start: 12-04-2018 End: 11-09-2023 Tobacco smoking status NHIS Former smoker [place], [place] Start: 12-21-1979 End: 12-20-1994 History of tobacco use Current smoker [place] Start: 12-21-1979 End: 12-20-1994 History of tobacco use Cigarette Smoker [place] Start: 12-04-2018 End: 07-07-2022 Cigarettes smoked current (pack per day) - Reported [facility] Start: 12-04-2018 End: 07-07-2022 Alcohol intake No [facility] Start: 1960 Sex Assigned At Not on file [place] Start: 09-28-2016 End: 11-09-2023 Tobacco use and exposure Smokeless tobacco non-user [employer] Phone: Start: 03-12-2021 End: 10-17-2024 Alcohol intake Current non-drinker of alcohol (finding) [employer] Phone: Start: 12-13-2020 End: 11-17-2021 Exposure to SARS-CoV-2 (event) Not sure [employer] Phone: Start: 05-07-2020 End: 02-12-2022 History SDOH Alcohol Frequency 1 [facility] Start: 05-07-2020 History SDOH Alcohol Std Drinks 98 [facility] Start: 05-07-2020 End: 02-12-2022 History SDOH Social Connections Phone 5 [facility] Start: 05-07-2020 End: 02-12-2022 History SDOH Social Connections Membership 2 [facility] Start: 05-07-2020 End: 02-12-2022 History SDOH Social Connections Living 7 [facility] Start: 05-07-2020 History SDOH Physica l Activity DPW 3 [facility] Start: 05-07-2020 End: 02-12-2022 History SDOH Financial 4 [facility] Start: 05-07-2020 Education 14 [facility] Start: 07-07-2021 End: 09-09-2021 Exposure to SARS-CoV-2 (event) Unable to assess [facility] Start: 02-12-2022 History SDOH Alcohol Std Drinks 0 [facility] Start: 03-02-2022 End: 05-17-2023 Tobacco smoking status NHIS Unknown if ever smoked [facility] Start: 06-13-[address] [facility] Start: 06-17-[address] [facility] Start: 02-03-2019 Non-smoker [facility] Start: 1960 Sex Assigned At Female W [facility] Start: 01-21-2012 Active Member of [facility] bs or Organizations Not on file [facility] Are you now , , , , never or living with a partner? Never [facility] How often do you hav e 6 or more drinks on 1 occasion? Never [facility] How hard is it for y ou to pay for the very basics like food, housing, medical care, and heating Not very hard [facility] Do you feel stress - tense, restless, nervous, or anxious, or unable to sleep at night because your mind is troubled all the time - these days [OSQ] Only a little [facility] (I/We) worried wheth er (my/our) food would run out before (I/we) got money to buy more. Sometimes true [facility] In the past 12 month s, was there a time when you were not able to pay the mortgage or rent on time? No [facility] Do you feel stress - tense, restless, nervous, or anxious, or unable to sleep at night because your mind is troubled all the time - these days [OSQ] Not at all [facility] (I/We) worried wheth er (my/our) food would run out before (I/we) got money to buy more. Never true [facility] Do you feel stress - tense, restless, nervous, or anxious, or unable to sleep at night because your mind is troubled all the time - these days [OSQ] To some extent [facility] Start: 04-25-2024 Sex Female (finding) [facility] Medical Equipment Procedure Code Equipment Code Equipment Origin al Text Equipment Identifier Dates [id number] Start: 03-12-2017 End: 04-03-2023 Comment on above: Test blood sugars up to 4 times daily as directed. Dx: Type 2 DM - Controlled E11.9 Insulin: Yes. Trumetrix brand Use one needle for e ach dose. 2/day. Test four times roseanna y Dx: 250.02 Test blood sugar(s) up to 4 times daily. Dx: Type 2 DM - Controlled E11.9 Insulin: Yes Test blood sugars up to 4 times daily as directed. Dx: Type 2 DM - Controlled E11.9 Insulin: Yes. Test blood sugar s up to 4 times daily as directed. Dx: Type 2 DM - Controlled E11.9 Insulin: Yes. [id number] Start: 04-05-2023 End: 08-10-2023 Use one needle f or each dose. 2/day. [id number] Start: 02-14-2023 End: 08-10-2023 Test blood sugar(s) up to 4 times daily. Dx: Type 2 DM - Controlled E11.9 Insulin: Yes [id number] Start: 03-19-2023 End: 08-10-2023 Test blood sugar s up to 4 times daily as directed. Dx: Type 2 DM - Controlled E11.9 Insulin: Yes. [id number] Start: 08-10-2023 Use one needle f or each dose. 2/day. [id number] Start: 08-10-2023 Test blood sugar(s) up to 4 times daily. Dx: Type 2 DM - Controlled E11.9 Insulin: Yes [id number] Start: 08-10-2023 Goals Date Patient Goal Desired Activity /State Functional Status Date Assessment Result Facility 03-04-2022 Functional status Patient Activity Bedres t [facility] Work Phone: 03-04-2022 Functional status With Assist of 2 [facility] Work Phone: 07-21-2021 Are you deaf, or do you have serious difficulty hearing No 07/21/2021 7:48 AM Keo Barbosa RN No [facility] 07-21-2021 Are you blind, or do you have serious difficulty seeing, even when wearing glasses No 07/21/2021 7:48 AM Keo Barbosa RN No [facility] 07-21-2021 Do you have serious difficulty walking or climbing stairs No 07/21/2021 7:48 AM Keo Barbosa, LOLY No [facility] 07-21-2021 Do you have difficul ty dressing or bathing No 07/21/2021 7:48 AM Keo Barbosa, LOLY No [facility] 07-21-2021 Because of a physica l, mental, or emotional condition, do you have difficulty doing errands alone such as visiting a physician's office or shopping No 07/21/2021 7:48 AM EDKeo Chairez, LOLY No [facility] Mental Status Date Assessment Result Facility 04-25-2024 Cognitive function Level Of Cons ciousness Awake;Alert;Appropriate [facility] Work Phone: 03-07-2022 Cognitive function Level Of Cons ciousness Awake;Alert;Appropriate;Fol lows Commands [facility] Work Phone: 03-04-2022 Cognitive function Appropriate;Cooperativ e [facility] Work Phone: 07-21-2021 Because of a physica l, mental, or emotional condition, do you have serious difficulty concentrating, remembering, or making decisions No 07/21/2021 7:48 AM Keo Barbosa RN No [facility] Clinical Notes 08-10-2017 to 12-23-2024 Telephone Encounter - Yokasta Reese RN - 10/23/2024 4:49 PM EDTTelephone Encounter - Yokasta Reese RN - 10/23/2024 4:49 PM Nehemiah Nicholson MD - 10/17/2024 12:17 PM EDTPatient Instructions Note Date & Type Note Facility 12-23-2024 Note HNO ID: [id number] Author: JOI MARKHAM APRN.[employer] Service: ? Author Type: Nurse Practitioner Type: Progress Notes Filed: 12/23/2024 10:33 Note Text: This is a 64 year old female who presents today with: Patient presents with: Edema: Bilateral legs HISTORY OF PRESENT ILLNESS: Wilton Khan is a 64 year old female. Patient presents with: Edema: Bilateral legs The patient is a 64-year-old female with HTN and stage I diastolic dysfunction, presenting for evaluation and management of chronic lower extremity ulcers with cellulitis and persistent edema. Wilton Khan is a 64-year-old female with a history of diastolic dysfunction, presenting for evaluation of lower extremity wounds, edema, and dyspnea. Lower Extremity Wounds: - Chronic wounds on bilateral lower extremities, with open areas developing over the past few weeks. - Multiple sores located on the inner thighs and hip areas. - Describes wounds as painful and deep crater. - No associated fever or chills. - Home health aide assists with bandage changes; wounds not healing as expected. Edema: - Chronic edema in bilateral lower extremities, worse in the evening. - Edema extends to the hips; never completely resolves. - Taking Lasix 80 mg and spironolactone 25 mg daily. - Attempting to walk to reduce swelling, but reports no improvement. Dyspnea: - Dyspnea on exertion. - Occasional palpitations lasting ~20 seconds. - Denies chest pain, cough, or wheezing. Yeast Infection: - Pruritic rash under abdominal fold and inner thighs. - Using a drying powder with minimal relief. - Showering daily and washing affected areas multiple times a day. PAST MEDICAL HISTORY: PAST MEDICAL HISTORY Diagnosis Date Abnormal glandular Papanicolaou smear of cervix 05/30/05 ABNL GLANDULAR PAP SMEAR CERVIX Acute gastritis without mention of hemorrhage Anxiety state, unspecified Arrhythmia Chronic cholecystitis Chronic obstructive pulmonary disease (COPD) ([facility]) Congestive heart failure ([facility]) 10/03/2011 Diabetes ([facility]) diabetes II 2010 Diaphragmatic hernia without mention of obstruction or gangrene Dysthymic disorder Depression (non-psychotic) Esophageal reflux Essential hypertension, benign Generalized OA Hyperprolactinemia ([facility]) 10/13/2005 Localized osteoarthrosis not specified whether primary or secondary, lower leg Major depressive disorder, recurrent episode Mucous polyp of cervix 07/19/05 Other and unspecified anterior pituitary hyperfunction ([facility]) 10/13/05 elevated prolactin level-was normal in 2011 PMH - PAST MEDICAL HISTORY OF sleep apnea PMH - PAST MEDICAL HISTORY OF sleep apnea SVT (supraventricular tachycardia) ([facility]) 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 Type 2 diabetes mellitus without complication, with long-term current use of insulin ([facility]) 12/22/2013 PAST SURGICAL HISTORY Procedure Laterality Date BIOPSY CERVIX SINGLE/MULT/EXCISION OF LESION SPX 07/19/2005 endocervical polyp COLONOSCOPY FLX DX W/COLLJ SPEC WHEN PFRMD 01/09/2012 Colonoscopy repeat 10 years COLPOSCOPY CERVIX UPPER/ADJACENT VAGINA Colposcopy EGD TRANSORAL BIOPSY SINGLE/MULTIPLE 01/16/2007 ESOPHAGOGASTRODUODENOSCOPY TRANSORAL DIAGNOSTIC 01/09/2012 EGD HERNIA REPAIR HX 11/2015 ventral HYSTEROSCOPY DX 12/17/2014 [facility] LAPS SURG CHOLECYSTECTOMY W/CHOLANGIOGRAPHY 05/15/2008 PARATHYROID ALLERGIES Lyrica [Pregabalin], Accupril [Quinapril Hcl], Actos [Pioglitazone], Amlodipine, Atenolol, Atorvastatin, Celebrex [Celecoxib], Effexor [Venlafaxine Hcl], Januvia [Sitagliptin], Metoprolol, Mobic [Meloxicam], Prozac [Fluoxetine Hcl], Remeron [Mirtazapine], Risperidone, Seroquel [Quetiapine Fumarate], Trulicity [Dulaglutide], Vancomycin, Vioxx [Rofecoxib], and Wellbutrin [Bupropion Hcl] MEDICATIONS Current Outpatient Medications Medication Sig Lancets Test blood sugar(s) up to 4 times daily. Dx: Type 2 DM - Controlled E11.9 Insulin: Yes pravastatin (PRAVACHOL) 40 mg tablet Take 1 tablet by mouth daily at bedtime. HYDROcodone-Acetaminophen (NORCO) 7.5-325 mg per tablet 1-2 tablets po q 4 hours prn pain. Max of four tabs/day blood sugar diagnostic (BLOOD GLUCOSE TEST) test strip Test blood sugars up to 4 times daily as directed. Dx: Type 2 DM - Controlled E11.9 Insulin: Yes. hydrOXYzine pamoate (VISTARIL) 25 mg capsule Take 1 capsule by mouth three times a day as needed. CPAP/BIPAP/OTHER Auto biPAP IPAP max 25, EPAP min 12, PS 5 cmH2O [facility] DULoxetine DR (CYMBALTA) 60 mg capsule Take 1 capsule by mouth once daily. gabapentin (NEURONTIN) 600 mg tablet Take 1 tablet by mouth two times a day for 180 days. rOPINIRole (REQUIP) 0.25 mg tablet Take 1 tablet by mouth daily at bedtime. traZODone (DESYREL) 100 mg tablet Take 1 tablet by mouth daily at bedtime. tiZANidine (ZANAFLEX) 4 mg tablet Take 1 tablet by mouth every 8 hours as needed (muscle spasms). semaglutide (OZEMPIC) 0.25 mg o (more content not included)... [facility] 12-01-2024 Note HNO ID: [id number] Author: VERO MILLS APRN.[employer] FIELD ROUSTABOUT Service: ? Author Type: Nurse Practitioner Type: Progress Notes Filed: 12/01/2024 11:41 Note Text: [facility] Follow up/ Established patient visit Recording using ambient AI software for draft documentation of the visit was discussed with the patient/authorized unit support representative; all questions welcomed and answered. Patient/authorized unit support representative agreed to proceed Assessment/Plan from last visit: Date of last visit : 08/18/24 IMPRESSION/PLAN: G47.33 Obstructive sleep apnea G25.81 Restless legs syndrome Wilton Khan is a delightful 64 year old female with JEREMÍAS, hx of biPAP use which she found beneficial, hasn't used PAP due to anxiety and sleeping in recliner rather than bed 1. Obstructive sleep apnea (G47.33) Patient has a history of obstructive sleep apnea managed with BiPAP therapy. Recently, patient has not been using the BiPAP due to anxiety and feelings of being smothered when using the device. Patient reports significant improvement in energy levels and reduction in daytime sleepiness when using the BiPAP consistently. Current BiPAP machine was replacement device during [employer] recall. Patient's oxygen saturation levels dropped during a previous hospital stay without the BiPAP, leading to the prescription of home oxygen therapy, which patient reports is no longer needed--that was in 2022, from [facility]. Patient experiences frequent nocturia and fragmented sleep, likely due tountreated sleep apnea. Patient's BiPAP settings are unclear, with patient reporting a possible setting of 16-20 cm H2O, raising concerns that the device may be functioning as a CPAP rather than a BiPAP. Recommendation from 2016 PAP titration study was biPAP 16/12 cmH2O. - Advised patient to resume BiPAP use and relocate the machine to the recliner where patient currently sleeps. She feels confident she will be able to do this. Continue trazodone at HS. Continue gospel music on TV. - Ordered a prescription for BiPAP supplies through [employer] in [place] - Scheduled a follow-up appointment for patient to bring in the BiPAP machine and power cord for data review in one monh. - Patient to check and report the serial number and current settings of the BiPAP machine via [employer]. - Will coordinate with [employer] to obtain a usage report from the BiPAP machine--or at least to confirm which device/settings she has. - Discussed the possibility of conducting an overnight pulse oximetry test at home to assess oxygen levels while using the BiPAP. - Educated patient on the importance of consistent BiPAP use to improve sleep quality, reduce nocturia, and enhance overall cognitive function. - Check [facility] at [facility] for original PSG report 2. Restless legs syndrome (G25.81) Patient is currently taking ropinirole at bedtime, which has been effective in managing symptoms. However, patient reports increased leg movements and discomfort, likely exacerbated by the discontinuation of BiPAP use. - Continue ropinirole at bedtime. - Advised patient that resuming BiPAP use may help reduce leg movements during sleep. - Monitor symptoms and adjust treatment as necessary based on the effectiveness of BiPAP therapy. Vero Mills APRN.[employer] FI[employer] ROUSTABOUT CURRENT VISIT: 12/01/2024 The patient is a 64-year-old female with JEREMÍAS presenting with poor sleep quality and concerns about her BiPAP machine. The patient reports poor sleep quality characterized by frequent awakenings throughout the night. She typically goes to bed around 1830, falls asleep quickly, and sleeps in a recliner. She wakes up 8-10 times nightly, sometimes to use the bathroom but often without a clear reason, and is usually awake for the day by 0400. She notes that while she spends many hours in the recliner, she does not feel she is getting restful sleep. She is currently using a BiPAP machine with a full-face mask and pressures of 20/16. She reports some benefit from the machine but feels it does not provide enough pressure. Per download the residual AHI is normalized. She also reports issues with the machine's display. She has been told by the equipment provider that her machine is outdated and needs replacement, but was unable to attend her last appointment due to transportation issues. She uses trazodone, which helps her fall asleep initially. SLEEP APNEA Sleep apnea type : JEREMÍAS, Most Recent Apnea-Hypopnea Index (AHI): 44 Treatment : PAP therapy DME: [employer] PAP History: Current PAP settin/16 cm H2O. Difficulties with Bilevel PAP: None Reviewed objective PAP compliance data: See chart AHI 2.4 Avg use 4 hr 9 min Mask type: full face mask Mask issues: none There is a perceived benefit by the patient --- (more content not included)... [facility] 10-23-2024 Telephone encounter Note Laura Pharmicst with [employer] called and is notified of providers message and instructions. She voices understanding. Yokasta Reese RN [facility] 10-23-2024 Miscellaneous Notes Laura Pharmicst with [employer] called and is notified of providers message and instructions. She voices understanding. Yokasta Reese RN Will need to call back they could not hear me. Yokasta Reees RN No. Pt. Was intolerant to Trulicity and has follow up to evaluate her tolerance to Ozempic in Nov. Please keep current dose. Wilder Bobbin Washer with [employer] [facility] of [employer] [facility] [employer] [facility] [employer] section called to and reports their pharmacy wanted to know if the provider wanted them to titrate the Ozempic up to the 0.5 mg after 4 weeks of the Pt being on the medication. He is asking if they could get a call back at # [phone] and you will need to give them Ref # [id number]. Yokasta Reese RN documented in this encounter [facility] 10-23-2024 Telephone encounter Note Will need to call back they could not hear me. Yokasta Reese RN [facility] 10-23-2024 Telephone encounter Note No. Pt. Was intolerant to Trulicity and has follow up to evaluate her tolerance to Ozempic in Dec. Please keep current dose. [facility] 10-23-2024 Telephone encounter Note Wilder Bobbin Washer with [facility] [employer] [facility] [employer] [facility] called to and reports their pharmacy wanted to know if the provider wanted them to titrate the Ozempic up to the 0.5 mg after 4 weeks of the Pt being on the medication. He is asking if they could get a call back at # [phone] and you will need to give them Ref # [id number]. Yokasta Reese RN [facility] 10-17-2024 Note HNO ID: [id number] Author: NEHEMIAH HERBERT MD Service: ? Author Type: Physician Type: Progress Notes Filed: 10/17/2024 12:23 Note Text: The patient is a 64-year-old female with hypertension, type 2 diabetes mellitus, hyperlipidemia, osteoarthritis, and cervical and lumbar degenerative disc disease, presenting for follow-up and evaluation of chronic pain management. HPI Chronic Pain: - Chronic knee arthritis and cervical/lumbar degenerative disc disease. - Pain management with [facility]; Wilton reports improved pain control and functionality. - Pain is tolerable most days; Wilton does not require nortriptyline. - Recent OARS report and refill in August. - Pain agreement signed in July; recent tox screen in May. DM: - Last A1c was 7.2% on 08/18. - Previous use of Trulicity caused nausea and cramps. - Wilton denies family history of thyroid cancer. JEREMÍAS: - Uses BiPAP; Wilton reports machine malfunction. - Scheduled follow-up with Vero Mills NP, for a new machine. Edema: - Persistent edema, fluctuates throughout the day. - Weight decreased by 9 lbs after increasing diuretic dosage. - Current weight: 380 lbs. - Wilton denies weight gain; monitors weight regularly. - Wilton denies bowel or urinary issues. Mental Health: - Wilton reports feeling well mentally. - No issues with mood or headaches. - Taking trazodone for sleep. Additional History: - Wilton denies chest pain, dyspnea, or palpitations. - No longer using oxygen. - Wilton denies skin issues. MEDICATIONS: Current Outpatient Medications Medication Sig semaglutide (OZEMPIC) 0.25 mg or 0.5 mg (2 mg/3 mL) pen Inject 0.25 mg subcutaneously one time a week. famotidine (PEPCID) 40 mg tablet Take 1 tablet by mouth once daily. Cholecalciferol, Vitamin D3, 125 mcg (5,000 unit) cap Take 1 capsule by mouth once daily. potassium chloride SR (MICRO-K) 8 mEq cpER Take 1 capsule by mouth daily with breakfast. ARIPiprazole (ABILIFY) 10 mg tablet Take 1 tablet by mouth once daily. HYDROcodone-Acetaminophen (NORCO) 7.5-325 mg per tablet Take 1 tablet by mouth two times a day as needed for pain for up to 30 days. insulin glargine (LANTUS SOLOSTAR U-100 INSULIN) 100 unit/mL (3 mL) Inject 34 Units subcutaneously every morning. ibuprofen (MOTRIN) 800 mg tablet Take 1 tablet by mouth every 8 hours as needed for pain. Take with food. CPAP/BIPAP/OTHER Auto biPAP IPAP max 25, EPAP min 12, PS 5 cmH2O DME [facility] pravastatin (PRAVACHOL) 40 mg tablet Take 1 tablet by mouth daily at bedtime. tiZANidine (ZANAFLEX) 4 mg tablet Take 1 tablet by mouth every 8 hours as needed (muscle spasms). spironolactone (ALDACTONE) 25 mg tablet Take 1 tablet by mouth once daily. traZODone (DESYREL) 100 mg tablet Take 1 tablet by mouth daily at bedtime. DULoxetine (CYMBALTA) 60 mg capsule Take 1 capsule by mouth once daily. rOPINIRole (REQUIP) 0.25 mg tablet Take 1 tablet by mouth daily at bedtime. gabapentin (NEURONTIN) 600 mg tablet Take 1 tablet by mouth two times a day for 180 days. Blood-Glucose Meter,Continuous (DEXCOM G7 ADVANCED REGISTERED NURSE) misc Use to check blood sugar at least four (4) times daily. Blood-Glucose Sensor (DEXCOM G7 SENSOR) jessica Apply new sensor every ten (10) days. hydrOXYzine pamoate (VISTARIL) 25 mg capsule Take 1 capsule by mouth three times a day as needed. furosemide (LASIX) 80 mg tablet Take 1 tablet by mouth once daily. [id number]-C-gio-bosw (OSTEO BI-FLEX TRIPLE STRENGTH) 750 mg-644 mg- 30 mg-1 mg tab Take 1 tablet by mouth two times a day. acetaminophen (ARTHRITIS PAIN RELIEF) 650 mg CR tablet Take 2 tablets by mouth every 8 hours as needed for pain. Not in same 8h period as [facility] (hydrocodone Tylenol) blood sugar diagnostic (BLOOD GLUCOSE TEST) test strip Test blood sugars up to 4 times daily as directed. Dx: Type 2 DM - Controlled E11.9 Insulin: Yes. Insulin Maljamar, Disposable, (BD ULTRA-FINE MADI PEN NEEDLE) 32 gauge x 5/32 Use one needle for each dose. 2/day. Lancets Test blood sugar(s) up to 4 times daily. Dx: Type 2 DM - Controlled E11.9 Insulin: Yes Disposable Gloves (DISPOSABLE LATEX-FREE GLOVES) [facility] Box once every month. Adhesive Bandage ([place] DRESSING) 6 X 6 bndg Apply to affected area once daily. Miscellaneous Medical Supply Collagen dressing 2x2 ascorbic acid (VITAMIN C ORAL) Take 1 tablet by mouth once daily. No current facility-administered medications for this visit. ALLERGIES: ALLERGIES Allergen Reactions Lyrica [Pregabalin] Anaphylaxis Not sure if accurate. Can take gabapentin. Patient is unsure of reaction. Accupril [Quinapril* Intolerance dizziness Actos [Pioglitazone] Swelling Amlodipine Swelling Leg edema Atenolol Swelling Atorvastatin Intolerance Muscle cramps and weakness Celebrex [Celecoxib] Swelling Effexor [Venlafaxin* swelling high blood pressure Januvia [Sitaglipti* GI Upset, Other: See Co (more content not included)... [facility] 10-17-2024 History of Present illness Narrative The patient is a 64-year-old female with hypertension, type 2 diabetes mellitus, hyperlipidemia, osteoarthritis, and cervical and lumbar degenerative disc disease, presenting for follow-up and evaluation of chronic pain management. HPI Chronic Pain: - Chronic knee arthritis and cervical/lumbar degenerative disc disease. - Pain management with [facility]; Wilton reports improved pain control and functionality. - Pain is tolerable most days; Wilton does not require nortriptyline. - Recent OARS report and refill in August. - Pain agreement signed in July; recent tox screen in May. DM: - Last A1c was 7.2% on 08/18. - Previous use of Trulicity caused nausea and cramps. - Wilton denies family history of thyroid cancer. JEREMÍAS: - Uses BiPAP; Wilton reports machine malfunction. - Scheduled follow-up with Vero Mills NP, for a new machine. Edema: - Persistent edema, fluctuates throughout the day. - Weight decreased by 9 lbs after increasing diuretic dosage. - Current weight: 380 lbs. - Wilton denies weight gain; monitors weight regularly. - Wilton denies bowel or urinary issues. Mental Health: - Wilton reports feeling well mentally. - No issues with mood or headaches. - Taking trazodone for sleep. Additional History: - Wilton denies chest pain, dyspnea, or palpitations. - No longer using oxygen. - Wilton denies skin issues. MEDICATIONS: Current Outpatient Medications Medication Sig semaglutide (OZEMPIC) 0.25 mg or 0.5 mg (2 mg/3 mL) pen Inject 0.25 mg subcutaneously one time a week. famotidine (PEPCID) 40 mg tablet Take 1 tablet by mouth once daily. Cholecalciferol, Vitamin D3, 125 mcg (5,000 unit) cap Take 1 capsule by mouth once daily. potassium chloride SR (MICRO-K) 8 mEq cpER Take 1 capsule by mouth daily with breakfast. ARIPiprazole (ABILIFY) 10 mg tablet Take 1 tablet by mouth once daily. HYDROcodone-Acetaminophen (NORCO) 7.5-325 mg per tablet Take 1 tablet by mouth two times a day as needed for pain for up to 30 days. insulin glargine (LANTUS SOLOSTAR U-100 INSULIN) 100 unit/mL (3 mL) Inject 34 Units subcutaneously every morning. ibuprofen (MOTRIN) 800 mg tablet Take 1 tablet by mouth every 8 hours as needed for pain. Take with food. CPAP/BIPAP/OTHER Auto biPAP IPAP max 25, EPAP min 12, PS 5 cmH2O DME [facility] pravastatin (PRAVACHOL) 40 mg tablet Take 1 tablet by mouth daily at bedtime. tiZANidine (ZANAFLEX) 4 mg tablet Take 1 tablet by mouth every 8 hours as needed (muscle spasms). spironolactone (ALDACTONE) 25 mg tablet Take 1 tablet by mouth once daily. traZODone (DESYREL) 100 mg tablet Take 1 tablet by mouth daily at bedtime. DULoxetine (CYMBALTA) 60 mg capsule Take 1 capsule by mouth once daily. rOPINIRole (REQUIP) 0.25 mg tablet Take 1 tablet by mouth daily at bedtime. gabapentin (NEURONTIN) 600 mg tablet Take 1 tablet by mouth two times a day for 180 days. Blood-Glucose Meter,Continuous (DEXCOM G7 ADVANCED REGISTERED NURSE) misc Use to check blood sugar at least four (4) times daily. Blood-Glucose Sensor (DEXCOM G7 SENSOR) jessica Apply new sensor every ten (10) days. hydrOXYzine pamoate (VISTARIL) 25 mg capsule Take 1 capsule by mouth three times a day as needed. furosemide (LASIX) 80 mg tablet Take 1 tablet by mouth once daily. [id number]-vpol-xhq2-C-gio-bosw (OSTEO BI-FLEX TRIPLE STRENGTH) 750 mg-644 mg- 30 mg-1 mg tab Take 1 tablet by mouth two times a day. acetaminophen (ARTHRITIS PAIN RELIEF) 650 mg CR tablet Take 2 tablets by mouth every 8 hours as needed for pain. Not in same 8h period as [place] (hydrocodone Tylenol) blood sugar diagnostic (BLOOD GLUCOSE TEST) test strip Test blood sugars up to 4 times daily as directed. Dx: Type 2 DM - Controlled E11.9 Insulin: Yes. Insulin Maljamar, Disposable, (BD ULTRA-FINE MADI PEN NEEDLE) 32 gauge x 32 Use one needle for each dose. 2/day. Lancets Test blood sugar(s) up to 4 times daily. Dx: Type 2 DM - Controlled E11.9 Insulin: Yes Disposable Gloves (DISPOSABLE LATEX-FREE GLOVES) misc 1 Box once every month. Adhesive Bandage ([place] DRESSING) 6 X 6 bndg Apply to affected area once daily. Miscellaneous Medical Supply Collagen dressing 2x2 ascorbic acid (VITAMIN C ORAL) Take 1 tablet by mouth once daily. No current facility-administered medications for this visit. ALLERGIES: ALLERGIES Allergen Reactions Lyrica [Pregabalin] Anaphylaxis Not sure if accurate. Can take gabapentin. Patient is unsure of reaction. Accupril [Quinapril* Intolerance dizziness Actos [Pioglitazone] Swelling Amlodipine Swelling Leg edema Atenolol Swelling Atorvastatin Intolerance Muscle cramps and weakness Celebrex [Celecoxib] Swelling Effexor [Venlafaxin* swelling high blood pressure Januvia [Sitaglipti* GI Upset, Other: See Comments Patient states she couldn't eat Metoprolol Swelling Mobic [Meloxicam] GI Upset Prozac [Fluoxetine * Intolerance tremor Remeron [Mirtazapin* Rash Risperidone Mental Status Change Seroquel [Quetiapin* hypertension,swelling Trulicity [Dulaglut* Intolerance Caused nausea and cramps Vancomycin Itching, Other: See Comments, Rash red all over Other reaction(s): Other: See Comments red all over Vioxx [Rofecoxib] GI Upset Wellbutrin [Bupropi* Intolerance nightmares PAST MEDICAL HISTORY Diagnosis Date Abnormal glandular Papanicolaou smear of cervix 05/30/05 ABNL GLANDULAR PAP SMEAR CERVIX Acute gastritis without mention of hemorrhage Anxiety state, unspecified Arrhythmia Chronic cholecystitis Chronic obstructive pulmonary disease (COPD) ([facility]) Congestive heart failure (HCC) 10/03/2011 Diabetes ([facility]) diabetes II 2010 Diaphragmatic hernia without mention of obstruction or gangrene Dysthymic disorder Depression (non-psychotic) Esophageal reflux Essential hypertension, benign Generalized OA Hyperprolactinemia (HCC) 10/13/2005 Localized osteoarthrosis not specified whether primary or secondary, lower leg Major depressive disorder, recurrent episode Mucous polyp of cervix 07/19/05 Other and unspecified anterior pituitary hyperfunction (HCC) 10/13/05 elevated prolactin level-was normal in 2011 PMH - PAST MEDICAL HISTORY OF sleep apnea PMH - PAST MEDICAL HISTORY OF sleep apnea SVT (supraventricular tachycardia) (HCC) 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 Type 2 diabetes mellitus without complication, with long-term current use of insulin (HCC) 12/22/2013 PAST SURGICAL HISTORY Procedure Laterality Date BIOPSY CERVIX SINGLE/MULT/EXCISION OF LESION SPX 07/19/2005 endocervical polyp COLONOSCOPY FLX DX W/COLLJ SPEC WHEN PFRMD 01/09/2012 Colonoscopy repeat 10 years COLPOSCOPY CERVIX UPPER/ADJACENT VAGINA Colposcopy EGD TRANSORAL BIOPSY SINGLE/MULTIPLE 01/16/2007 ESOPHAGOGASTRODUODENOSCOPY TRANSORAL DIAGNOSTIC 01/09/2012 EGD HERNIA REPAIR HX 11/2015 ventral HYSTEROSCOPY DX 12/17/2014 [facility] LAPS SURG CHOLECYSTECTOMY W/CHOLANGIOGRAPHY 05/15/2008 PARATHYROID FAMILY HISTORY Problem Relation Age of Onset Hypertension Mother Heart Mother concha stroke Diabetes Mother Stroke Mother Massive- Arthritis Mother Osteoarthritis Hypertension Father COPD Father Hypertension Sister Arthritis Sister Hypertension Sister Diabetes Sister Arthritis Sister Hypertension Sister Diabetes Sister Arthritis Sister Hypertension Sister Diabetes Sister other (Rheumatoid Arthritis) Sister Heart Brother Triple Bypass Heart Brother Heart Brother Heart Maternal Aunt Heart Maternal Uncle SOCIAL HISTORY[1] Reviewed current medications, allergies, past medical history, surgical history, family history and social history today. REVIEW OF SYSTEMS Constitutional: (+) weight loss Cardiovascular: (+) peripheral edema, (-) chest pain, (-) palpitations Respiratory: (-) dyspnea Gastrointestinal: (-) bowel changes Genitourinary: (-) urinary symptoms Musculoskeletal: (+) joint pain Skin: (-) rash Neurological: (-) headache Psychiatric: (-) mood changes HEALTH MAINTENANCE: Reviewed health maintenance issues today and recommended the following in detail. Mammogram Screening due on 11/16/2016 Colorectal Cancer Screening due on 01/08/2022 Medicare Advantage Annual Wellness Visit Never done Dilated Retinal Exam due on 11/04/2024 LAB REVIEWED: Labs: (08/18) - A1c: 7.2% - Cholesterol: 191 mg/dL - Triglycerides: 214 mg/dL - HDL: 40 mg/dL - LDL: 85 mg/dL - GFR: 104 mL/min - CMP: within normal limits - Blood counts: normal - Liver function: normal (May) - Urine toxicology screen: results not stated VITALS: BP 118/82 Pulse 63 LMP 12/11/2008 SpO2 95% Last 4 Encounter Wt Readings: Date: Wt: 08/18/2024 0 kg () 04/14/2024 164.7 kg (363 lb) 09/28/2023 166 kg (366 lb) 09/12/2023 0 kg () PHYSICAL EXAMINATION: General: Alert, well-developed, no acute distress. Neck: No JVD. No carotid bruit. Lungs: Respirations unlabored, clear to auscultation, no wheezes, rales or rhonchi, symmetric air entry. Heart: Regular rate and regular rhythm, S1 and S2 normal, no murmur, no rub or gallop. Abdomen: Soft, non-tender. Extremities: No new edema noted currently, but patient reports intermittent swelling that improves in the morning. Pulses: 2+ symmetric radial pulse. Skin: Warm and dry. ASSESSMENT AND PLAN 1. Benign hypertensive heart disease with CHF, NYHA class 2 ([facility]) (I11.0) - Blood pressure today 110/82. Continue meds. 2. SVT (supraventricular tachycardia) ([facility]) (I47.10) - doing well 3. Obstructive sleep apnea (G47.33) - BiPAP machine not functioning properly; new machine pending insurance approval after follow-up with Vero Mills NP. 4. Gastroesophageal reflux disease without esophagitis (K21.9) -continue meds. 5. S/P parathyroidectomy (Z98.890) no current issues. 6. Major depressive disorder, recurrent episode, moderate ([facility]) (F33.1) - Mood stable. Doing well. 7. DDD (degenerative disc disease), cervical (M50.30) 8. Degeneration of intervertebral disc of lumbar region, unspecified whether pain present (M51.369) 9. Bilateral primary osteoarthritis of knee (M17.0) - Chronic pain well controlled with [place]; use is not excessive and patient is on lowest effective dose. - Pain agreement signed in July; OARS completed and urine drug screen performed in May. - Patient reports improved pain control and functional status. - Continue [place] as needed; advised to use only when necessary. - Follow-up in a few months to monitor ongoing opioid therapy. 10. Chronic respiratory failure with hypoxia ([facility]) (J96.11) - No longer using supplemental oxygen. 11. Type 2 diabetes mellitus with peripheral neuropathy (HCC) (E11.42) - Last A1c 7.2% on August 18. - Start Ozempic at a low dose for weight loss and glycemic control; discussed potential GI side effects and prior intolerance to Trulicity. - Order A1c prior to next visit. - Follow-up in 2 months. 12. Morbid obesity (HCC) (E66.01) - Weight currently 380 lbs, down 9 lbs since last visit. - Edema likely due to venous insufficiency; advised leg elevation and to monitor for rapid weight gain (>4 lbs in 24 hours). - Discussed GLP-1 agonist therapy for weight loss; patient declined weight loss program and bariatric surgery. - Order fasting lipid panel and liver function tests prior to next visit. - Follow-up in 2 months. (See patient after visit summary for additional instructions to patient) Nehemiah Herbert MD Recording using [employer] software for draft documentation of the visit was discussed with the patient/authorized unit support representative; all questions welcomed and answered. Patient/authorized unit support representative agreed to proceed [1] Social History Tobacco Use Smoking status: Former Current packs/day: 0.00 Average packs/day: 1 pack/day for 15.0 years (15.0 ttl pk-yrs) Types: Cigarettes Start date: 12/21/1979 Quit date: 12/20/1994 Years since quittin.8 Smokeless tobacco: Never Vaping Use Vaping status: Never Used Substance Use Topics Alcohol use: No Drug use: No documented in this encounter [facility] 10-17-2024 Instructions Nehemiah Herbert MD - 10/17/2024 9:33 AM EDT - Continue taking [place] only as needed at your current dose; refill has been sent to your pharmacy. - Keep using gabapentin, Requip, trazodone for sleep, and your prescribed diuretic; do not restart Topamax since you have no headaches. - Continue BiPAP nightly and attend your scheduled visit with SHAYAN Mills to obtain a replacement machine. - Begin a low dose of ozempic for weight loss; prescription sent to [facility]. Monitor for any nausea or bowel changes and report concerns. - Weigh yourself daily; if your weight rises by more than 4 pounds in 24 hours, call the office. - Elevate your legs when swelling increases and limit salt intake; try support hose or compression wraps if you re able. - In 2 months, come in for a follow-up visit. Have fasting labs drawn immediately before your appointment: A1c, liver function tests, and a lipid panel. documented in this encounter [facility] 10-13-2024 Telephone encounter Note Prescription Refill Information The patient has been identified by name and date of : Yes Caregiver verified no other encounters exist for this prescription request: Yes Caregiver confirmed with patient/requestor that no other refills are due, in the near future, with this provider at this time: Yes The last office visit in the department: 08-18-24 Does the patient have a future office visit with this provider/department: Yes Requested Prescriptions Pending Prescriptions Disp Refills famotidine (PEPCID) 40 mg tablet 90 tablet 3 Sig: Take 1 tablet by mouth once daily. Cholecalciferol, Vitamin D3, 125 mcg (5,000 unit) cap 90 capsule 3 Sig: Take 1 capsule by mouth once daily. potassium chloride SR (MICRO-K) 8 mEq cpER 90 capsule 3 Sig: Take 1 capsule by mouth daily with breakfast. ARIPiprazole (ABILIFY) 10 mg tablet 90 tablet 3 Sig: Take 1 tablet by mouth once daily. Dimple Turcios October 13, 2024 3:28 PM [facility] 10-13-2024 Miscellaneous Notes Prescription Refill Information The patient has been identified by name and date of : Yes Caregiver verified no other encounters exist for this prescription request: Yes Caregiver confirmed with patient/requestor that no other refills are due, in the near future, with this provider at this time: Yes The last office visit in the department: 08-18-24 Does the patient have a future office visit with this provider/department: Yes Requested Prescriptions Pending Prescriptions Disp Refills famotidine (PEPCID) 40 mg tablet 90 tablet 3 Sig: Take 1 tablet by mouth once daily. Cholecalciferol, Vitamin D3, 125 mcg (5,000 unit) cap 90 capsule 3 Sig: Take 1 capsule by mouth once daily. potassium chloride SR (MICRO-K) 8 mEq cpER 90 capsule 3 Sig: Take 1 capsule by mouth daily with breakfast. ARIPiprazole (ABILIFY) 10 mg tablet 90 tablet 3 Sig: Take 1 tablet by mouth once daily. Dimple Turcios October 13, 2024 3:28 PM documented in this encounter [facility] 10-10-2024 Telephone encounter Note Patient calls and wanted provider to know that she is down 9 pounds since taking the extra lasix. The patient has been identified by name and date of : Yes Caregiver verified no other encounters exist for this prescription request: Yes Caregiver confirmed with patient/requestor that no other refills are due, in the near future, with this provider at this time: Yes The last office visit in the department: 08/18/2024 Does the patient have a future office visit with this provider/department: Yes 10/17/2024 Requested Prescriptions Pending Prescriptions Disp Refills HYDROcodone-Acetaminophen (NORCO) 7.5-325 mg per tablet 60 tablet 0 Sig: Take 1 tablet by mouth two times a day as needed for pain for up to 30 days. Marlee Pennington RN October 10, 2024 12:11 PM [facility] 10-10-2024 Miscellaneous Notes Patient calls and wanted provider to know that she is down 9 pounds since taking the extra lasix. The patient has been identified by name and date of : Yes Caregiver verified no other encounters exist for this prescription request: Yes Caregiver confirmed with patient/requestor that no other refills are due, in the near future, with this provider at this time: Yes The last office visit in the department: 08/18/2024 Does the patient have a future office visit with this provider/department: Yes 10/17/2024 Requested Prescriptions Pending Prescriptions Disp Refills HYDROcodone-Acetaminophen (NORCO) 7.5-325 mg per tablet 60 tablet 0 Sig: Take 1 tablet by mouth two times a day as needed for pain for up to 30 days. Marlee Pennington RN October 10, 2024 12:11 PM documented in this encounter [facility] 10-09-2024 Telephone encounter Note Pt called and is notified of providers message and instructions. Pt voices understanding. Yokasta Reese RN [facility] 10-09-2024 Miscellaneous Notes Pt called and is notified of providers message and instructions. Pt voices understanding. Yokasta Reese RN Called and left a voicemail for the Patient to call back and ask for a nurse to receive the providers message. Need to let Pt know, Can take an extra dose tonight and tomorrow morning. Call if worsens or does not improve. Yokasta Reese RN Patient calling to ask if she can increase her water pill for a few days. States she has gained 6 lbs in 2 days. Has increased lower extremity edema. Currently 389 lbs. States she has CHF and has been sitting in a wheelchair more this week at a daycare center, not elevating her legs. Reports mild Shortness of Breath. No chest pain. States legs feel like they are burning but they are not red and not hot. Fasting sugar this morning was 168. No other sx's. Pt aware to proceed to ER for severe sx's as discussed during call. Pt requests Dr. Herbert to address this only. Aware he is out today, back tomorrow. Christal Rasmussen RN documented in this encounter [facility] 10-09-2024 Telephone encounter Note Called and left a voicemail for the Patient to call back and ask for a nurse to receive the providers message. Need to let Pt know, Can take an extra dose tonight and tomorrow morning. Call if worsens or does not improve. Yokasta Reese RN [facility] 10-09-2024 Telephone encounter Note Patient calling to ask if she can increase her water pill for a few days. States she has gained 6 lbs in 2 days. Has increased lower extremity edema. Currently 389 lbs. States she has CHF and has been sitting in a wheelchair more this week at a daycare center, not elevating her legs. Reports mild Shortness of Breath. No chest pain. States legs feel like they are burning but they are not red and not hot. Fasting sugar this morning was 168. No other sx's. Pt aware to proceed to ER for severe sx's as discussed during call. Pt requests Dr. Herbert to address this only. Aware he is out today, back tomorrow. Christal Rasmussen RN [facility] 09-17-2024 Telephone encounter Note Patient notified. [facility] 09-17-2024 Miscellaneous Notes Patient notified. Have her increase her lantus to 34 units a day. Send a list of sugars in one week Patient calling with blood sugar readings, Lantus insulin increased to 32 units. all readings are fasting daily 7/16 127 7/17 150 7/18 165 7/19 160 7/20 155 7/21 161 7/22 150 7/23 160 7/ 165 7/ 155 7/ 160 7/ 128 7/ 140 7/ 150 7/30 forgot to do today documented in this encounter [facility] 09-17-2024 Telephone encounter Note Have her increase her lantus to 34 units a day. Send a list of sugars in one week [facility] 09-17-2024 Telephone encounter Note Patient calling with blood sugar readings, Lantus insulin increased to 32 units. all readings are fasting daily 09/03 127 7/17 150 7/18 165 7/19 160 7/20 155 7/21 161 7/22 150 7/23 160 7/24 165 7/ 155 7/ 160 7/ 128 7/ 140 7/ 150 7/30 forgot to do today [facility] 09-16-2024 Telephone encounter Note Prescription Refill Information The patient has been identified by name and date of : Yes Caregiver verified no other encounters exist for this prescription request: Yes Caregiver confirmed with patient/requestor that no other refills are due, in the near future, with this provider at this time: Yes The last office visit in the department: 08/18/24 Does the patient have a future office visit with this provider/department: Yes 10/17/24 Requested Prescriptions Pending Prescriptions Disp Refills ibuprofen (MOTRIN) 800 mg tablet 90 tablet 11 Sig: Take 1 tablet by mouth every 8 hours as needed for pain. Take with food. Estefani Bell LPN September 16, 2024 10:39 AM [facility] 09-16-2024 Miscellaneous Notes Prescription Refill Information The patient has been identified by name and date of : Yes Caregiver verified no other encounters exist for this prescription request: Yes Caregiver confirmed with patient/requestor that no other refills are due, in the near future, with this provider at this time: Yes The last office visit in the department: 08/18/24 Does the patient have a future office visit with this provider/department: Yes 10/17/24 Requested Prescriptions Pending Prescriptions Disp Refills ibuprofen (MOTRIN) 800 mg tablet 90 tablet 11 Sig: Take 1 tablet by mouth every 8 hours as needed for pain. Take with food. Estefani Bell LPN September 16, 2024 10:39 AM documented in this encounter [facility] 09-01-2024 Telephone encounter Note Pt called and is notified of providers results and instructions. Pt voices understanding. Yokasta Reese RN [facility] 09-01-2024 Miscellaneous Notes Pt called and is notified of providers results and instructions. Pt voices understanding. Yokasta Reese RN Sugar are still slightly up. Increase lantus to 32 units a day and call list or mychart list in a few weeks. Pt called in fating am BS readings from beginning of August through now. BS (fasting am) 7/ 150 7/2 155 7/3 150 7/4 175 7/5 170 7/6 175 7/7 (Forgot to take) 08/26 165 7/9 165 7/10 155 7/11 150 7/12 165 7/13 170 7/14 151 Yokasta Reese RN documented in this encounter [facility] 09-01-2024 Telephone encounter Note Sugar are still slightly up. Increase lantus to 32 units a day and call list or mychart list in a few weeks. [facility] 09-01-2024 Telephone encounter Note Pt called in fating am BS readings from beginning of August through now. BS (fasting am) 7/ 150 7/2 155 7/3 150 7/4 175 7/5 170 7/6 175 7/7 (Forgot to take) 08/26 165 7/9 165 7/10 155 7/11 150 7/12 165 7/13 170 /14 151 Yokasta Reese, RN [facility] 08-29-2024 Telephone encounter Note Noted, thanks. If pt can't do that, we can consider trying a different DME, specifically [facility]. Vero Mills APRN.[employer] [facility] 08-29-2024 Miscellaneous Notes Noted, thanks. If pt can't do that, we can consider trying a different DME, specifically [facility]. Vero Mills APRN.[employer] Shilpi with [employer] calling and states she will be contacting patient today to inform her that due to noncompliance with last PAP machine (33%), she would have to purchase the supplies and use Pap for 30 days first. Call Shilpi for any questions. [phone]. Christal Rasmussen RN documented in this encounter [facility] 08-28-2024 Telephone encounter Note Shilpi with [employer] calling and states she will be contacting patient today to inform her that due to noncompliance with last PAP machine (33%), she would have to purchase the supplies and use Pap for 30 days first. Call Shilpi for any questions. [phone]. Christal Rasmussen RN [facility] 08-27-2024 Telephone encounter Note [facility]axed new device order to [facility]. La Kuhn LPN [facility] 08-27-2024 Miscellaneous Notes Faxed new device order to [facility]. La Kuhn LPN Please see pt's msg re DME not having the order. Please let pt know. Vero Fraga APRN.CNP Please fax rx for replacement bipap to [facility] Let's push back her follow up appointment so it can be her 31-90 day PAP appointment Vero Mills APRN.LIZZIE Phoned Dayron at [facility] and he updated serial number as they had the old SN and reports that patient should be eligible for new machine as she would be eligible after 5 years. Aspen Dean LPN Please see pt's message with the serial number of her device. Will you please check with DME if this is the same device they have listed? I'm wondering if she really got a replacement device or not during the [employer] recall. Also, please ask if she is eligible for a replacement device per her insurance now. Flakito Mills APRN.CNP documented in this encounter [facility] 08-27-2024 Telephone encounter Note Please see pt's msg re DME not having the order. Please let pt know. Vero Fraga APRN.CNP [facility] 08-25-2024 Telephone encounter Note The patient has been identified by name and date of : Yes Caregiver verified no other encounters exist for this prescription request: Yes Caregiver confirmed with patient/requestor that no other refills are due, in the near future, with this provider at this time: Yes The last office visit in the department: 08/18/2024 Does the patient have a future office visit with this provider/department: Yes 10/17/2024 Requested Prescriptions Pending Prescriptions Disp Refills topiramate (TOPAMAX) 25 mg tablet 90 tablet 1 Sig: Take 1 tablet by mouth once daily. Marlee Pennington RN August 25, 2024 8:25 AM [facility] 08-25-2024 Miscellaneous Notes The patient has been identified by name and date of : Yes Caregiver verified no other encounters exist for this prescription request: Yes Caregiver confirmed with patient/requestor that no other refills are due, in the near future, with this provider at this time: Yes The last office visit in the department: 08/18/2024 Does the patient have a future office visit with this provider/department: Yes 10/17/2024 Requested Prescriptions Pending Prescriptions Disp Refills topiramate (TOPAMAX) 25 mg tablet 90 tablet 1 Sig: Take 1 tablet by mouth once daily. Marlee Pennington RN August 25, 2024 8:25 AM documented in this encounter [facility] 08-24-2024 Telephone encounter Note Please fax rx for replacement bipap to [facility] Let's push back her follow up appointment so it can be her 31-90 day PAP appointment Vero Mills APRN.LIZZIE [facility] 08-19-2024 Telephone encounter Note Phoned Dayron at [facility] and he updated serial number as they had the old SN and reports that patient should be eligible for new machine as she would be eligible after 5 years. Aspen Dean LPN [facility] 08-19-2024 Telephone encounter Note Please see pt's message with the serial number of her device. Will you please check with DME if this is the same device they have listed? I'm wondering if she really got a replacement device or not during the [employer] recall. Also, please ask if she is eligible for a replacement device per her insurance now. Thanks Vero Mills APRN.[employer] [facility] 08-18-2024 Telephone encounter Note Below noted. Provider needing to know current settings on BiPAP. TC back to [facility] to verify. 20/16 with no ramp VIVIANA Pelletier [facility] 08-18-2024 Miscellaneous Notes Below noted. Provider needing to know current settings on BiPAP. TC back to [facility] to verify. 20/16 with no ramp VIVIANA Pelletier Ana with [employer] calls to report they received the request for download but are unable to complete as patient has an older [employer]ironics Bi-pap that has been recalled and would need a SD card in order to do the download. Emily Garcia RN documented in this encounter [facility] 08-18-2024 Note HNO ID: [id number] Author: NEHEMIAH HERBERT MD Service: ? Author Type: Physician Type: Progress Notes Filed: 08/18/2024 13:29 Note Text: Wilton Khan is a 64-year-old female with a history of HTN, DM, JEREMÍAS, and chronic pain, presenting for a follow-up visit. HPI Hypertension: - BP today: 122/72 mmHg. - Denies chest discomfort. Diabetes Mellitus: - Monitors blood glucose levels at home; reports readings are real good. - Seen by celery stripper at [facility] approximately one month ago. JEREMÍAS: - Managed by Dr. Guerrero. - Uses BiPAP but has not been consistent due to nerves. - Denies using supplemental oxygen at night. Chronic Pain: - Chronic back and neck pain; currently taking [place] and gabapentin. - Recent visit to Dr. Driscoll, who recommended increasing [place] to 7.5/325 mg BID PRN. - Recent toxicology screen showed a false positive for amphetamines; confirmed negative by blood test in May. - Reports pain management is doing great with current medications. - Denies taking additional medications or exceeding prescribed doses. Arthritis: - Reports pain in back and neck. - Managed with [place]. - Oarrs done - Has done tox screen. - Helps her to meet her ADL's - Aware of risks adn benefits. - Controlled substance agreement done today. Edema: - Chronic lower extremity edema; no recent changes. - Denies weight gain, dyspnea, or orthopnea. - Denies erythema or warmth in lower extremities. RLS: - Managed with Requip; reports symptoms are doable right now. Fatty Liver: - History of fatty liver disease; most recent liver enzymes were normal. Parathyroidectomy: - History of parathyroid surgery; reports no current issues. GERD: - Denies heartburn. Skin Issues: - Reports skin on the back of legs is very tender and sore but not open. Emotional Well-being: - Reports feeling pretty decent emotionally, even after the recent loss of her brother. - Denies seeing a psychiatrist or psychologist. MEDICATIONS: Current Outpatient Medications Medication Sig spironolactone (ALDACTONE) 25 mg tablet Take 1 tablet by mouth once daily. ARIPiprazole (ABILIFY) 10 mg tablet Take 1 tablet by mouth once daily. traZODone (DESYREL) 100 mg tablet Take 1 tablet by mouth daily at bedtime. DULoxetine (CYMBALTA) 60 mg capsule Take 1 capsule by mouth once daily. rOPINIRole (REQUIP) 0.25 mg tablet Take 1 tablet by mouth daily at bedtime. topiramate (TOPAMAX) 25 mg tablet Take 1 tablet by mouth once daily. gabapentin (NEURONTIN) 600 mg tablet Take 1 tablet by mouth two times a day for 180 days. potassium chloride SR (MICRO-K) 8 mEq cpER Take 1 capsule by mouth daily with breakfast. pravastatin (PRAVACHOL) 20 mg tablet Take 1 tablet by mouth daily at bedtime. furosemide (LASIX) 80 mg tablet Take 1 tablet by mouth once daily. famotidine (PEPCID) 40 mg tablet Take 1 tablet by mouth once daily. Cholecalciferol, Vitamin D3, 125 mcg (5,000 unit) cap Take 1 capsule by mouth once daily. insulin glargine (LANTUS SOLOSTAR U-100 INSULIN) 100 unit/mL (3 mL) Inject 30 Units subcutaneously every morning. HYDROcodone-Acetaminophen (NORCO) 7.5-325 mg per tablet Take 1 tablet by mouth two times a day as needed for pain for up to 30 days. tiZANidine (ZANAFLEX) 4 mg tablet Take 1 tablet by mouth every 8 hours as needed (muscle spasms). Blood-Glucose Meter,Continuous (DEXExam18 G7 ADVANCED REGISTERED NURSE) mis Use to check blood sugar at least four (4) times daily. Blood-Glucose Sensor (DEXCOM G7 SENSOR) jessica Apply new sensor every ten (10) days. hydrOXYzine pamoate (VISTARIL) 25 mg capsule Take 1 capsule by mouth three times a day as needed. ufhxjumv-lnyi-dth0-C-gio-bosw (OSTEO BI-FLEX TRIPLE STRENGTH) 750 mg-644 mg- 30 mg-1 mg tab Take 1 tablet by mouth two times a day. ibuprofen (MOTRIN) 800 mg tablet Take 1 tablet by mouth every 8 hours as needed for pain. Take with food. acetaminophen (ARTHRITIS PAIN RELIEF) 650 mg CR tablet Take 2 tablets by mouth every 8 hours as needed for pain. Not in same 8h period as [place] (hydrocodone Tylenol) blood sugar diagnostic (BLOOD GLUCOSE TEST) test strip Test blood sugars up to 4 times daily as directed. Dx: Type 2 DM - Controlled E11.9 Insulin: Yes. Insulin Maljamar, Disposable, (BD ULTRA-FINE MADI PEN NEEDLE) 32 gauge x Use one needle for each dose. 2/day. Lancets Test blood sugar(s) up to 4 times daily. Dx: Type 2 DM - Controlled E11.9 Insulin: Yes Disposable Gloves (DISPOSABLE LATEX-FREE GLOVES) misc 1 Box once every month. Adhesive Bandage ([place] DRESSING) 6 X 6 bndg Apply to affected area once daily. Miscellaneous Medical Supply Collagen dressing 2x2 ascorbic acid (VITAMIN C ORAL) Take 1 tablet by mouth once daily. No current facility-administered medications for this visit. ALLERGIES: ALLERGIES Allergen Reactions Lyrica [Pregabalin] Anaphylaxis Not sure if accurate. Can take gabapentin. P (more content not included)... [facility] 08-18-2024 History of Present illness Narrative Wilton Khan is a 64-year-old female with a history of HTN, DM, JEREMÍAS, and chronic pain, presenting for a follow-up visit. HPI Hypertension: - BP today: 122/72 mmHg. - Denies chest discomfort. Diabetes Mellitus: - Monitors blood glucose levels at home; reports readings are real good. - Seen by celery stripper at [facility] in [place] approximately one month ago. JEREMÍAS: - Managed by Dr. Guerrero. - Uses BiPAP but has not been consistent due to nerves. - Denies using supplemental oxygen at night. Chronic Pain: - Chronic back and neck pain; currently taking [place] and gabapentin. - Recent visit to Dr. Driscoll, who recommended increasing [place] to 7.5/325 mg BID PRN. - Recent toxicology screen showed a false positive for amphetamines; confirmed negative by blood test in May. - Reports pain management is doing great with current medications. - Denies taking additional medications or exceeding prescribed doses. Arthritis: - Reports pain in back and neck. - Managed with [place]. - Oarrs done - Has done tox screen. - Helps her to meet her ADL's - Aware of risks adn benefits. - Controlled substance agreement done today. Edema: - Chronic lower extremity edema; no recent changes. - Denies weight gain, dyspnea, or orthopnea. - Denies erythema or warmth in lower extremities. RLS: - Managed with [employer]; reports symptoms are doable right now. Fatty Liver: - History of fatty liver disease; most recent liver enzymes were normal. Parathyroidectomy: - History of parathyroid surgery; reports no current issues. GERD: - Denies heartburn. Skin Issues: - Reports skin on the back of legs is very tender and sore but not open. Emotional Well-being: - Reports feeling pretty decent emotionally, even after the recent loss of her brother. - Denies seeing a psychiatrist or psychologist. MEDICATIONS: Current Outpatient Medications Medication Sig spironolactone (ALDACTONE) 25 mg tablet Take 1 tablet by mouth once daily. ARIPiprazole (ABILIFY) 10 mg tablet Take 1 tablet by mouth once daily. traZODone (DESYREL) 100 mg tablet Take 1 tablet by mouth daily at bedtime. DULoxetine (CYMBALTA) 60 mg capsule Take 1 capsule by mouth once daily. rOPINIRole (REQUIP) 0.25 mg tablet Take 1 tablet by mouth daily at bedtime. topiramate (TOPAMAX) 25 mg tablet Take 1 tablet by mouth once daily. gabapentin (NEURONTIN) 600 mg tablet Take 1 tablet by mouth two times a day for 180 days. potassium chloride SR (MICRO-K) 8 mEq cpER Take 1 capsule by mouth daily with breakfast. pravastatin (PRAVACHOL) 20 mg tablet Take 1 tablet by mouth daily at bedtime. furosemide (LASIX) 80 mg tablet Take 1 tablet by mouth once daily. famotidine (PEPCID) 40 mg tablet Take 1 tablet by mouth once daily. Cholecalciferol, Vitamin D3, 125 mcg (5,000 unit) cap Take 1 capsule by mouth once daily. insulin glargine (LANTUS SOLOSTAR U-100 INSULIN) 100 unit/mL (3 mL) Inject 30 Units subcutaneously every morning. HYDROcodone-Acetaminophen (NORCO) 7.5-325 mg per tablet Take 1 tablet by mouth two times a day as needed for pain for up to 30 days. tiZANidine (ZANAFLEX) 4 mg tablet Take 1 tablet by mouth every 8 hours as needed (muscle spasms). Blood-Glucose Meter,Continuous (DEXCOM G7 ADVANCED REGISTERED NURSE) [facility] Use to check blood sugar at least four (4) times daily. Blood-Glucose Sensor (DEXCOM G7 SENSOR) jessica Apply new sensor every ten (10) days. hydrOXYzine pamoate (VISTARIL) 25 mg capsule Take 1 capsule by mouth three times a day as needed. ioqlfusl-tudi-oei0-C-gio-bosw (OSTEO BI-FLEX TRIPLE STRENGTH) 750 mg-644 mg- 30 mg-1 mg tab Take 1 tablet by mouth two times a day. ibuprofen (MOTRIN) 800 mg tablet Take 1 tablet by mouth every 8 hours as needed for pain. Take with food. acetaminophen (ARTHRITIS PAIN RELIEF) 650 mg CR tablet Take 2 tablets by mouth every 8 hours as needed for pain. Not in same 8h period as [place] (hydrocodone Tylenol) blood sugar diagnostic (BLOOD GLUCOSE TEST) test strip Test blood sugars up to 4 times daily as directed. Dx: Type 2 DM - Controlled E11.9 Insulin: Yes. Insulin Maljamar, Disposable, (BD ULTRA-FINE MADI PEN NEEDLE) 32 gauge x 5/32 Use one needle for each dose. 2/day. Lancets Test blood sugar(s) up to 4 times daily. Dx: Type 2 DM - Controlled E11.9 Insulin: Yes Disposable Gloves (DISPOSABLE LATEX-FREE GLOVES) misc 1 Box once every month. Adhesive Bandage (STRAT[place] ISLAND DRESSING) 6 X 6 bndg Apply to affected area once daily. Miscellaneous Medical Supply Collagen dressing 2x2 ascorbic acid (VITAMIN C ORAL) Take 1 tablet by mouth once daily. No current facility-administered medications for this visit. ALLERGIES: ALLERGIES Allergen Reactions Lyrica [Pregabalin] Anaphylaxis Not sure if accurate. Can take gabapentin. Patient is unsure of reaction. Accupril [Quinapril* Intolerance dizziness Actos [Pioglitazone] Swelling Amlodipine Swelling Leg edema Atenolol Swelling Atorvastatin Intolerance Muscle cramps and weakness Celebrex [Celecoxib] Swelling Effexor [Venlafaxin* swelling high blood pressure Januvia [Sitaglipti* GI Upset, Other: See Comments Patient states she couldn't eat Metoprolol Swelling Mobic [Meloxicam] GI Upset Prozac [Fluoxetine * Intolerance tremor Remeron [Mirtazapin* Rash Risperidone Mental Status Change Seroquel [Quetiapin* hypertension,swelling Trulicity [Dulaglut* Intolerance Caused nausea and cramps Vancomycin Itching, Other: See Comments, Rash red all over Other reaction(s): Other: See Comments red all over Vioxx [Rofecoxib] GI Upset Wellbutrin [Bupropi* Intolerance nightmares PAST MEDICAL HISTORY Diagnosis Date Abnormal glandular Papanicolaou smear of cervix 05/30/05 ABNL GLANDULAR PAP SMEAR CERVIX Acute gastritis without mention of hemorrhage Anxiety state, unspecified Arrhythmia Chronic cholecystitis Chronic obstructive pulmonary disease (COPD) (HCC) Congestive heart failure ([facility]) 10/03/2011 Diabetes ([facility]) diabetes II 2010 Diaphragmatic hernia without mention of obstruction or gangrene Dysthymic disorder Depression (non-psychotic) Esophageal reflux Essential hypertension, benign Generalized OA Hyperprolactinemia ([facility]) 10/13/2005 Localized osteoarthrosis not specified whether primary or secondary, lower leg Major depressive disorder, recurrent episode Mucous polyp of cervix 07/19/05 Other and unspecified anterior pituitary hyperfunction ([facility]) 10/13/05 elevated prolactin level-was normal in 2011 PMH - PAST MEDICAL HISTORY OF sleep apnea PMH - PAST MEDICAL HISTORY OF sleep apnea SVT (supraventricular tachycardia) ([facility]) 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 Type 2 diabetes mellitus without complication, with long-term current use of insulin ([facility]) 12/22/2013 PAST SURGICAL HISTORY Procedure Laterality Date BIOPSY CERVIX SINGLE/MULT/EXCISION OF LESION SPX 07/19/2005 endocervical polyp COLONOSCOPY FLX DX W/COLLJ SPEC WHEN PFRMD 01/09/2012 Colonoscopy repeat 10 years COLPOSCOPY CERVIX UPPER/ADJACENT VAGINA Colposcopy EGD TRANSORAL BIOPSY SINGLE/MULTIPLE 01/16/2007 ESOPHAGOGASTRODUODENOSCOPY TRANSORAL DIAGNOSTIC 01/09/2012 EGD HERNIA REPAIR HX 11/2015 ventral HYSTEROSCOPY DX 12/17/2014 D&C LAPS SURG CHOLECYSTECTOMY W/CHOLANGIOGRAPHY 05/15/2008 PARATHYROID FAMILY HISTORY Problem Relation Age of Onset Hypertension Mother Heart Mother concha stroke Diabetes Mother Stroke Mother Massive- Arthritis Mother Osteoarthritis Hypertension Father COPD Father Hypertension Sister Arthritis Sister Hypertension Sister Diabetes Sister Arthritis Sister Hypertension Sister Diabetes Sister Arthritis Sister Hypertension Sister Diabetes Sister other (Rheumatoid Arthritis) Sister Heart Brother Triple Bypass Heart Brother Heart Brother Heart Maternal Aunt Heart Maternal Uncle Social History Tobacco Use Smoking status: Former Current packs/day: 0.00 Average packs/day: 1 pack/day for 15.0 years (15.0 ttl pk-yrs) Types: Cigarettes Start date: 12/21/1979 Quit date: 12/20/1994 Years since quittin.6 Smokeless tobacco: Never Vaping Use Vaping status: Never Used Substance Use Topics Alcohol use: No Drug use: No Reviewed current medications, allergies, past medical history, surgical history, family history and social history today. REVIEW OF SYSTEMS Constitutional: (-) weight gain Ears/Nose/Mouth/Throat: (-) nasal congestion Neck: (+) neck pain Cardiovascular: (+) leg swelling, (-) chest pain, (-) orthopnea Respiratory: (-) cough Gastrointestinal: (-) heartburn, (-) bowel problems Genitourinary: (-) urinary problems Musculoskeletal: (+) back pain, (+) joint pain, (+) leg tenderness Skin: (-) skin issues Neurological: (+) restless legs HEALTH MAINTENANCE: Reviewed health maintenance issues today and recommended the following in detail. Mammogram Screening due on 11/16/2016 Colorectal Cancer Screening due on 01/08/2022 Medicare Advantage Annual Wellness Visit Never done LDL Cholesterol due on 04/16/2024 Urine Albumin:Creatinine Ratio due on 04/18/2024 LAB REVIEWED: Labs: (05/2022) Toxicology screening: Negative for amphetamines on confirmatory testing Liver function tests: Within normal limits VITALS: BP 122/72 Pulse (!) 57 LMP 12/11/2008 SpO2 99% Last 4 Encounter Wt Readings: Date: Wt: 08/18/2024 0 kg () 04/14/2024 164.7 kg (363 lb) 09/28/2023 166 kg (366 lb) 09/12/2023 0 kg () PHYSICAL EXAMINATION: GENERAL: NAD, alert and oriented. SKIN: Unremarkable, no rash or skin lesions. HEAD: Normocephalic. NECK: Supple, no lymphadenopathy, normal thyroid, no carotid bruits. LUNGS: Clear to auscultation bilaterally, no wheezes/rhonchi/rales. HEART: Regular rate and rhythm, no murmurs. No ectopy. EXTREMITIES: No deformities, no skin discoloration, edema noted in lower extremities. NEURO: Awake, alert and oriented x3, cranial nerves II-XII grossly intact, normal gait, no involuntary motions. ASSESSMENT AND PLAN 1. Type 2 diabetes mellitus with peripheral neuropathy (HCC) (E11.42) - Blood glucose levels are well-controlled. - Ordered HbA1c. - Follow-up with celery stripper at [facility]; last visit approximately one month ago. 2. Pain disorder with psychological factors (F45.42) - Pain management previously consulted; Dr. Driscoll recommended increasing [place] dosage. - Increased [place] to 7.5/325 mg twice daily as needed. - Discussed risks of opioid use including addiction, overdose, and tolerance. - Signed controlled substance agreement. - Follow-up in 2 months. 3. Essential hypertension, benign (I10) - Blood pressure well-controlled at 122/72 mmHg. 4. Benign hypertensive heart disease with CHF, NYHA class 2 (HCC) (I11.0) - No reports of orthopnea or significant weight gain. - Mild edema in lower extremities; chronic issue. 5. Obstructive sleep apnea (G47.33) - Managed by Dr. Guerrero. - Non-compliance with BiPAP therapy; patient plans to resume use. 6. Gastroesophageal reflux disease without esophagitis (K21.9) - No current symptoms of heartburn. 7. Primary hyperparathyroidism (HCC) (E21.0) - Status post parathyroidectomy; stable. 8. Deep vein thrombosis (DVT) of proximal vein of left lower extremity, unspecified chronicity (HCC) (I82.4Y2) - History of DVT in 2019; no current signs of erythema or warmth in lower extremities. 9. Degeneration of intervertebral disc of lumbar region, unspecified whether pain present (M51.369) 10. DDD (degenerative disc disease), lumbar (M51.369) - Chronic back pain; managed with [place] and gabapentin. 11. Morbid obesity (HCC) (E66.01) - watch diet. 12. Anxiety state (F41.1) - Emotional state stable; no current psychiatric follow-up. 13. Debility (R53.81) - stable. 14. Chronic respiratory failure with hypoxia (HCC) (J96.11) 15. DDD (degenerative disc disease), cervical (M50.30) - Chronic neck pain; managed with [place] and gabapentin. 16. Lumbar facet arthropathy (M47.816) - continue meds 17. Diffuse myofascial pain syndrome (M79.18) - continue meds. Has seen specialist who concurs with current meds and recommends higher dose. 18. Encounter for screening mammogram for breast cancer (Z12.31) - Ordered screening mammogram. 19. Screening for colon cancer (Z12.11) - Discussed options for colon cancer screening. - Patient opted for Cologuard test. 20. Restless legs syndrome (G25.81) - Symptoms manageable with current medication regimen. (See patient after visit summary for additional instructions to patient) Nehemiah Herbert MD Recording using SeeSpace software for draft documentation of the visit was discussed with the patient/authorized unit support representative; all questions welcomed and answered. Patient/authorized unit support representative agreed to proceed documented in this encounter [facility] 08-18-2024 Instructions Nehemiah Herbert MD - 08/18/2024 11:28 AM EDT - Increase your [place] (hydrocodone/acetaminophen) to 7.5/325 mg: take one tablet twice daily as needed for pain, using only as directed. - Continue your gabapentin for restless legs as prescribed. - Resume BiPAP therapy tonight at home for sleep apnea; continue follow-up with Dr. Guerrero. - Review and sign the controlled substance agreement before your next refill; return it to the clinic so we can continue your pain prescriptions. - Obtain non-fasting labs soon for A1c and cholesterol; we will also repeat your liver enzyme tests periodically. - Complete the [facility] at-home colon cancer screening kit and mail it back per instructions (valid for three years). - Schedule your mammogram now that the order is in place. - Follow up in two months (in-person or virtual) for pain medication review and prescription renewal. documented in this encounter [facility] 08-18-2024 Note HNO ID: [id number] Author: LA KUHN LPN Service: ? Author Type: LICENSED NURSE Type: Progress Notes Filed: 08/18/2024 10:30 Note Text: Faxed mask/supply order to [facility]. La Kuhn LPN [facility] 08-18-2024 History of Present illness Narrative Faxed mask/supply order to [facility]. La Kuhn LPN Images from the original note were not included. [facility] New Patient Evaluation PATIENT NAME: Wilton Khan DATE OF SERVICE: August 17, 2024 Recording using ambient [employer] software for draft documentation of the visit was discussed with the patient/authorized unit support representative; all questions welcomed and answered. Patient/authorized unit support representative agreed to proceed CONSULTING PROVIDER: Joi Markham [id number] [facility] [id number] REASON FOR CONSULT: Joi Markham sends the patient for an opinion about JEREMÍAS, not always adherent with CPAP. My findings and recommendations will be transmitted electronically via shared medical record to the consulting provider. HPI: 1. Concerns: - BiPAP Usage - Patient is a 64-year-old female presenting with concerns regarding her BiPAP usage. - Reports not using her BiPAP for a while due to anxiety and feeling smothered when using it. - Previously used the BiPAP faithfully but stopped after the loss of her brother, which has affected her mental health. - Currently sleeps in a recliner due to difficulty getting in and out of bed and anxiety when lying in bed. - Has had oxygen at home for quite a while but does not use it as she does not need it. Oxygen was prescribed after an overnight stay at [facility] where her oxygen levels dropped without her BiPAP. - Reports that her oxygen levels at home have been good, but she cannot get rid of the oxygen without a doctor's order. - Had an overnight oxygen test in June 2022, which showed 9 minutes below 88%, qualifying her for oxygen. Testing done off PAP. - Had a PAP titration sleep study [place] [address] Myles, which led to the recommendation of BiPAP after not tolerating CPAP. - Received a new BiPAP machine following the [employer] recall. Not sure if it is CPAP or biPAP - Fatigue and Sleepiness - Reports feeling sleepy all the time and lacking energy. - Feels 100% better when using the BiPAP, with improved energy and reduced sleepiness. - Experiences frequent nighttime awakenings and does not feel refreshed in the morning. - Wakes up multiple times at night to use the bathroom - Restless Legs - Has a history of restless legs and is currently taking ropinirole at bedtime, which helps. - Reports constant leg movements and pain when not using the BiPAP. - Anxiety - Takes Cymbalta and Abilify - Uses trazodone 100 mg at night to help fall asleep quickly. - Family History of Sleep Apnea - Reports that three of her sisters have sleep apnea. 2. Sleep history: - Overall goals of treatment: Improve sleep quality and reduce daytime fatigue. - Sleep habits: - Typical bedtime: 19:00-19:30 - Time to fall asleep: Falls asleep quickly with trazodone. Plays gospel music on TV at night which she finds very soothing. - Nighttime awakening number: Wakes up 2-3 hours after falling asleep to use the bathroom, then falls back asleep quickly. - Use of PAP or prior treatments: - PAP experience: Previously used BiPAP faithfully but stopped due to anxiety and feeling smothered. - Current PAP usage: Not currently using BiPAP. - Types of masks tried: Full face mask Patient Questionnaires Sleep Scores 08/13/2024 Sleep Questions Reason for visit: Sleep apnea Restless Legs Syndrome On average, hours of sleep in 24 hours: 14 Accidents or near accidents due to drowsy drivin Multiple values from one day are sorted in reverse-chronological order 08/13/2024 [place] Sleepiness Scale Score 15 (Excessive daytime sleepiness present) 08/13/2024 PROMIS CAT Sleep Disturbance PROMIS Sleep Disturbance T-Score 54 (within normal limits) PROMIS Sleep Disturbance Percentile 34 08/13/2024 Restless Leg Syndrome Score 22 (Severe symptoms) 08/13/2024 PHQ-9 Score 9 06/18/2024 PROMIS Global Health - (T-Scores - the mean of general population = 50. Five points is a clinically meaningful difference.) Physical T-Score 37.4 Mental T-Score 36.3 PAST TREATMENTS: Replacement machine during [employer] recall Benefits: not sleepy DME for supplies: [facility] PRIOR SLEEP STUDIES: ?original PSG at [facility] 09/11/15 biPAP titration study done by Dr Myles for CPAP intolerance, recommended biPAP 16/12 cmH20 (no supine REM sleep) PAST MEDICAL HISTORY Diagnosis Date Abnormal glandular Papanicolaou smear of cervix 05/30/05 ABNL GLANDULAR PAP SMEAR CERVIX Acute gastritis without mention of hemorrhage Anxiety state, unspecified Arrhythmia Chronic cholecystitis Chronic obstructive pulmonary disease (COPD) (HCC) Congestive heart failure (HCC) 10/03/2011 Diabetes (HCC) diabetes II 2010 Diaphragmatic hernia without mention of obstruction or gangrene Dysthymic disorder Depression (non-psychotic) Esophageal reflux Essential hypertension, benign Generalized OA Hyperprolactinemia (HCC) 10/13/2005 Localized osteoarthrosis not specified whether primary or secondary, lower leg Major depressive disorder, recurrent episode Mucous polyp of cervix 07/19/05 Other and unspecified anterior pituitary hyperfunction (HCC) 10/13/05 elevated prolactin level-was normal in 2011 PMH - PAST MEDICAL HISTORY OF sleep apnea PMH - PAST MEDICAL HISTORY OF sleep apnea SVT (supraventricular tachycardia) ([facility]) 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 Type 2 diabetes mellitus without complication, with long-term current use of insulin (HCC) 12/22/2013 PAST SURGICAL HISTORY Procedure Laterality Date BIOPSY CERVIX SINGLE/MULT/EXCISION OF LESION SPX 07/19/2005 endocervical polyp COLONOSCOPY FLX DX W/COLLJ SPEC WHEN PFRMD 01/09/2012 Colonoscopy repeat 10 years COLPOSCOPY CERVIX UPPER/ADJACENT VAGINA Colposcopy EGD TRANSORAL BIOPSY SINGLE/MULTIPLE 01/16/2007 ESOPHAGOGASTRODUODENOSCOPY TRANSORAL DIAGNOSTIC 01/09/2012 EGD HERNIA REPAIR HX 11/2015 ventral HYSTEROSCOPY DX 12/17/2014 D&C LAPS SURG CHOLECYSTECTOMY W/CHOLANGIOGRAPHY 05/15/2008 PARATHYROID ACTIVE PROBLEM LIST Anxiety State Essential Hypertension, Benign ABNL GLANDULAR PAP SMEAR CERVIX Irregular Menstrual Cycle Esophageal Reflux Morbid Obesity (Hcc) Obstructive Sleep Apnea Svt (Supraventricular Tachycardia) ([facility]) Benign Hypertensive Heart Disease With Chf, Nyha Class 2 ([facility]) Spondylolisthesis Lumbar Facet Arthropathy Ddd (Degenerative Disc Disease), Lumbar Ddd (Degenerative Disc Disease), Cervical Type 2 Diabetes Mellitus With Peripheral Neuropathy ([facility]) Pmb (Postmenopausal Bleeding) Dysthymia Major depressive disorder, recurrent episode, moderate ([facility]) Pain Disorder With Psychological Factors Diffuse Myofascial Pain Syndrome Bilateral Primary Osteoarthritis of Knee Liver Disease Umbilical Hernia Without Obstruction and Without Gangrene Hypercalcemia Primary Hyperparathyroidism (Hcc) Dvt (Deep Venous Thrombosis) ([facility]) Traumatic Complete Tear of Right Rotator Cuff Debility Abnormality of Gait Due to Impairment of Balance Chronic Respiratory Failure With Hypoxia ([facility]) Former Smoker Pressure Injury of Skin of Thigh Allergies As of Date: 08/18/2024 Allergen Noted Reaction LYRICA [PREGABALIN] 08/05/2012 Anaphylaxis ACCUPRIL [QUINAPRIL HCL] 08/12/2005 Intolerance ACTOS [PIOGLITAZONE] 05/14/2020 Swelling AMLODIPINE 04/24/2008 Swelling ATENOLOL 09/29/2010 Swelling ATORVASTATIN 11/01/2017 Intolerance CELEBREX [CELECOXIB] 11/25/2020 Swelling EFFEXOR [VENLAFAXINE HCL] 09/22/2005 JANUVIA [SITAGLIPTIN] 09/21/2011 GI Upset and Other: See Comments METOPROLOL 09/21/2009 Swelling MOBIC [MELOXICAM] 08/12/2005 GI Upset PROZAC [FLUOXETINE HCL] 08/12/2005 Intolerance REMERON [MIRTAZAPINE] 11/25/2020 Rash RISPERIDONE 12/22/2009 Mental Status Change SEROQUEL [QUETIAPINE FUMARATE] 10/05/2006 TRULICITY [DULAGLUTIDE] 05/10/2023 Intolerance VANCOMYCIN 08/10/2017 Itching, Other: See Comments, and Rash VIOXX [ROFECOXIB] 08/12/2005 GI Upset WELLBUTRIN [BUPROPION HCL] 08/12/2005 Intolerance Fully Assessed 08/18/2024 CURRENT MEDICATIONS: tiZANidine (ZANAFLEX) 4 mg tablet Take 1 tablet by mouth every 8 hours as needed (muscle spasms). spironolactone (ALDACTONE) 25 mg tablet Take 1 tablet by mouth once daily. ARIPiprazole (ABILIFY) 10 mg tablet Take 1 tablet by mouth once daily. traZODone (DESYREL) 100 mg tablet Take 1 tablet by mouth daily at bedtime. DULoxetine (CYMBALTA) 60 mg capsule Take 1 capsule by mouth once daily. rOPINIRole (REQUIP) 0.25 mg tablet Take 1 tablet by mouth daily at bedtime. topiramate (TOPAMAX) 25 mg tablet Take 1 tablet by mouth once daily. gabapentin (NEURONTIN) 600 mg tablet Take 1 tablet by mouth two times a day for 180 days. Blood-Glucose Meter,Continuous (DEXCOM G7 ADVANCED REGISTERED NURSE) misc Use to check blood sugar at least four (4) times daily. Blood-Glucose Sensor (DEXCOM G7 SENSOR) jessica Apply new sensor every ten (10) days. hydrOXYzine pamoate (VISTARIL) 25 mg capsule Take 1 capsule by mouth three times a day as needed. potassium chloride SR (MICRO-K) 8 mEq cpER Take 1 capsule by mouth daily with breakfast. pravastatin (PRAVACHOL) 20 mg tablet Take 1 tablet by mouth daily at bedtime. furosemide (LASIX) 80 mg tablet Take 1 tablet by mouth once daily. famotidine (PEPCID) 40 mg tablet Take 1 tablet by mouth once daily. Cholecalciferol, Vitamin D3, 125 mcg (5,000 unit) cap Take 1 capsule by mouth once daily. fmuukhvc-twkl-[id number]-C-gio-bosw (OSTEO BI-FLEX TRIPLE STRENGTH) 750 mg-644 mg- 30 mg-1 mg tab Take 1 tablet by mouth two times a day. ibuprofen (MOTRIN) 800 mg tablet Take 1 tablet by mouth every 8 hours as needed for pain. Take with food. acetaminophen (ARTHRITIS PAIN RELIEF) 650 mg CR tablet Take 2 tablets by mouth every 8 hours as needed for pain. Not in same 8h period as [place] (hydrocodone Tylenol) blood sugar diagnostic (BLOOD GLUCOSE TEST) test strip Test blood sugars up to 4 times daily as directed. Dx: Type 2 DM - Controlled E11.9 Insulin: Yes. Insulin Maljamar, Disposable, (BD ULTRA-FINE MADI PEN NEEDLE) 32 gauge x 532 Use one needle for each dose. 2/day. Lancets Test blood sugar(s) up to 4 times daily. Dx: Type 2 DM - Controlled E11.9 Insulin: Yes Disposable Gloves (DISPOSABLE LATEX-FREE GLOVES) misc 1 Box once every month. Adhesive Bandage ([place] DRESSING) 6 X 6 bndg Apply to affected area once daily. Miscellaneous Medical Supply Collagen dressing 2x2 ascorbic acid (VITAMIN C ORAL) Take 1 tablet by mouth once daily. HYDROcodone-acetaminophen (NORCO) 5-325 mg per tablet Take 1 tablet by mouth two times a day as needed for pain for up to 30 days. insulin glargine (LANTUS SOLOSTAR U-100 INSULIN) 100 unit/mL (3 mL) Inject 30 Units subcutaneously every morning. Prior RLS Medications (last 20 years) 08/03/2024 23:59 RLS Medications ropinirole HCl 0.25 mg AT BEDTIME PO hydrocodone/acetaminophen -Rx End Details Outpatient prescription Medication marked as long-term Prior Insomnia Medications (last 20 years) 06/18/2024 Insomnia Medications trazodone HCl 100 mg AT BEDTIME PO amitriptyline HCl 50 mg AT BEDTIME PO -Discontinued Details Outpatient prescription Review of Systems Constitutional: (+) fatigue, (+) excessive daytime sleepiness, (+) frequent nighttime awakenings, (-) difficulty falling asleep Genitourinary: (+) nocturia Musculoskeletal: (+) leg pain Neurological: (+) word-finding difficulty, (+) leg restlessness Psychiatric: (+) anxiety SOCIAL HISTORY: Social History Tobacco Use Smoking status: Former Current packs/day: 0.00 Average packs/day: 1 pack/day for 15.0 years (15.0 ttl pk-yrs) Types: Cigarettes Start date: 12/21/1979 Quit date: 12/20/1994 Years since quittin.6 Smokeless tobacco: Never Vaping Use Vaping status: Never Used Substance Use Topics Alcohol use: No Drug use: No FAMILY HISTORY: FAMILY HISTORY Problem Relation Age of Onset Hypertension Mother Heart Mother concha stroke Diabetes Mother Stroke Mother Massive- Arthritis Mother Osteoarthritis Hypertension Father COPD Father Hypertension Sister Arthritis Sister Hypertension Sister Diabetes Sister Arthritis Sister Hypertension Sister Diabetes Sister Arthritis Sister Hypertension Sister Diabetes Sister other (Rheumatoid Arthritis) Sister Heart Brother Triple Bypass Heart Brother Heart Brother Heart Maternal Aunt Heart Maternal Uncle There is a family history of: Sleep apnea. Relative: 3 sisters PHYSICAL EXAMINATION: Vital Signs: BP 109/69 Pulse 62 Resp 16 LMP 12/11/2008 SpO2 97% PHYSICAL EXAM: General appearance: pleasant, NAD Mental status: alert and oriented, able to provide own history Constitutional: obese, in motorized chair that reclines Skin: No visible rashes on exposed skin Neuro: No focal deficits observed, no tremors IMPRESSION/PLAN: G47.33 Obstructive sleep apnea G25.81 Restless legs syndrome Wilton Khan is a delightful 64 year old female with JEREMÍAS, hx of biPAP use which she found beneficial, hasn't used PAP due to anxiety and sleeping in recliner rather than bed 1. Obstructive sleep apnea (G47.33) Patient has a history of obstructive sleep apnea managed with BiPAP therapy. Recently, patient has not been using the BiPAP due to anxiety and feelings of being smothered when using the device. Patient reports significant improvement in energy levels and reduction in daytime sleepiness when using the BiPAP consistently. Current BiPAP machine was replacement device during [employer] recall. Patient's oxygen saturation levels dropped during a previous hospital stay without the BiPAP, leading to the prescription of home oxygen therapy, which patient reports is no longer needed--that was in 2022, from [facility]. Patient experiences frequent nocturia and fragmented sleep, likely due to untreated sleep apnea. Patient's BiPAP settings are unclear, with patient reporting a possible setting of 16-20 cm H2O, raising concerns that the device may be functioning as a CPAP rather than a BiPAP. Recommendation from 2016 PAP titration study was biPAP 16/12 cmH2O. - Advised patient to resume BiPAP use and relocate the machine to the recliner where patient currently sleeps. She feels confident she will be able to do this. Continue trazodone at HS. Continue gospel music on TV. - Ordered a prescription for BiPAP supplies through [employer] in [place] - Scheduled a follow-up appointment for patient to bring in the BiPAP machine and power cord for data review in one monh. - Patient to check and report the serial number and current settings of the BiPAP machine via [employer]. - Will coordinate with [employer] to obtain a usage report from the BiPAP machine--or at least to confirm which device/settings she has. - Discussed the possibility of conducting an overnight pulse oximetry test at home to assess oxygen levels while using the BiPAP. - Educated patient on the importance of consistent BiPAP use to improve sleep quality, reduce nocturia, and enhance overall cognitive function. - Check [facility] at [facility] for original PSG report 2. Restless legs syndrome (G25.81) Patient is currently taking ropinirole at bedtime, which has been effective in managing symptoms. However, patient reports increased leg movements and discomfort, likely exacerbated by the discontinuation of BiPAP use. - Continue ropinirole at bedtime. - Advised patient that resuming BiPAP use may help reduce leg movements during sleep. - Monitor symptoms and adjust treatment as necessary based on the effectiveness of BiPAP therapy. Vero Mills APRN.LIZZIE documented in this encounter [facility] 08-18-2024 Telephone encounter Note Ana with [employer] calls to report they received the request for download but are unable to complete as patient has an older Respironics Bi-pap that has been recalled and would need a SD card in order to do the download. Emily Garcia RN [facility] 08-18-2024 Note HNO ID: [id number] Author: VERO MILLS APRN.LIZZIE Service: ? Author Type: Nurse Practitioner Type: Progress Notes Filed: 08/18/2024 10:05 Note Text: [facility] New Patient Evaluation PATIENT NAME: Wilton Khan DATE OF SERVICE: August 17, 2024 Recording using SeeSpace software for draft documentation of the visit was discussed with the patient/authorized unit support representative; all questions welcomed and answered. Patient/authorized unit support representative agreed to proceed CONSULTING PROVIDER: Joi Markham [address] [facility] [id number] REASON FOR CONSULT: Joi Markham sends the patient for an opinion about JEREMÍAS, not always adherent with CPAP. My findings and recommendations will be transmitted electronically via shared medical record to the consulting provider. HPI: 1. Concerns: - BiPAP Usage - Patient is a 64-year-old female presenting with concerns regarding her BiPAP usage. - Reports not using her BiPAP for a while due to anxiety and feeling smothered when using it. - Previously used the BiPAP faithfully but stopped after the loss of her brother, which has affected her mental health. - Currently sleeps in a recliner due to difficulty getting in and out of bed and anxiety when lying in bed. - Has had oxygen at home for quite a while but does not use it as she does not need it. Oxygen was prescribed after an overnight stay at [facility] where her oxygen levels dropped without her BiPAP. - Reports that her oxygen levels at home have been good, but she cannot get rid of the oxygen without a doctor's order. - Had an overnight oxygen test in June 2022, which showed 9 minutes below 88%, qualifying her for oxygen. Testing done off PAP. - Had a PAP titration sleep study [place] [address] Myles, which led to the recommendation of BiPAP after not tolerating CPAP. - Received a new BiPAP machine following the [employer] recall. Not sure if it is CPAP or biPAP - Fatigue and Sleepiness - Reports feeling sleepy all the time and lacking energy. - Feels 100% better when using the BiPAP, with improved energy and reduced sleepiness. - Experiences frequent nighttime awakenings and does not feel refreshed in the morning. - Wakes up multiple times at night to use the bathroom - Restless Legs - Has a history of restless legs and is currently taking ropinirole at bedtime, which helps. - Reports constant leg movements and pain when not using the BiPAP. - Anxiety - Takes Cymbalta and Abilify - Uses trazodone 100 mg at night to help fall asleep quickly. - Family History of Sleep Apnea - Reports that three of her sisters have sleep apnea. 2. Sleep history: - Overall goals of treatment: Improve sleep quality and reduce daytime fatigue. - Sleep habits: - Typical bedtime: 19:00-19:30 - Time to fall asleep: Falls asleep quickly with trazodone. Plays gospel music on TV at night which she finds very soothing. - Nighttime awakening number: Wakes up 2-3 hours after falling asleep to use the bathroom, then falls back asleep quickly. - Use of PAP or prior treatments: - PAP experience: Previously used BiPAP faithfully but stopped due to anxiety and feeling smothered. - Current PAP usage: Not currently using BiPAP. - Types of masks tried: Full face mask Patient Questionnaires Sleep Scores 08/13/2024 Sleep Questions Reason for visit: Sleep apnea Restless Legs Syndrome On average, hours of sleep in 24 hours: 14 Accidents or near accidents due to drowsy drivin Multiple values from one day are sorted in reverse-chronological order 08/13/2024 [place] Sleepiness Scale Score 15 (Excessive daytime sleepiness present) 08/13/2024 PROMIS CAT Sleep Disturbance PROMIS Sleep Disturbance T-Score 54 (within normal limits) PROMIS Sleep Disturbance Percentile 34 08/13/2024 Restless Leg Syndrome Score 22 (Severe symptoms) 08/13/2024 PHQ-9 Score 9 06/18/2024 PROMIS Global Health - (T-Scores - the mean of general population = 50. Five points is a clinically meaningful difference.) Physical T-Score 37.4 Mental T-Score 36.3 PAST TREATMENTS: Replacement machine during [employer] recall Benefits: not sleepy DME for supplies: [facility] PRIOR SLEEP STUDIES: ?original PSG at [facility] 09/11/15 biPAP titration study done by Dr Myles for CPAP intolerance, recommended biPAP 16/12 cmH20 (no supine REM sleep) PAST MEDICAL HISTORY Diagnosis Date Abnormal glandular Papanicolaou smear of cervix 05/30/05 ABNL GLANDULAR PAP SMEAR CERVIX Acute gastritis without mention of hemorrhage Anxiety state, unspecified Arrhythmia Chronic cholecystitis Chronic obstructive pulmonary disease (COPD) (HCC) Congestive heart failure (HCC) 10/03/2011 Diabetes (HCC) diabetes II 2010 Diaphragmatic hernia without mention of obstruction or gangrene Dysthymic disorder Depression (non-psychotic) Esopha (more content not included)... [facility] 08-08-2024 Note HNO ID: [id number] Author: NEHEMIAH HERBERT MD Service: ? Author Type: Physician Type: Progress Notes Filed: 08/08/2024 16:49 Note Text: Did not keep appt. [facility] 08-08-2024 History of Present illness Narrative Did not keep appt. documented in this encounter [facility] 07-30-2024 Note HNO ID: [id number] Author: ALEAH DRISCOLL MD Service: ? Author Type: Physician Type: Progress Notes Filed: 07/30/2024 12:51 Note Text: [facility] Pain Management Department Date: July 30, 2024 - 11:20 AM Wilton Khan is seen in consultation requested by Nehemiah Herbert for an opinion regarding knee and back pain. My final recommendations will be communicated back to the requesting physician by way of shared medical record or via US mail. Piedad Chief Complaint: back and knee pain SUBJECTIVE: Wilton Khan, is a 64 year old female with morbid obesity who presents with bilateral knee worse on the left side and back pain. The pain started years ago, no specific preceding injury or trauma.. The pain onset was gradual and chronic in nature. The patient states that the current pain is persistent. Her pain is located in the bilateral knees and and intermittently radiates to the upper leg and involves the frontal distribution with burning dysesthesia.// The pain is described as numbness, pressure, and stiffness. The pain intensity is rated 8. The pain is exacerbated by prolonged sitting and relieved by medication, reposition, relaxation, cold, exercise, heat, pillow support, and positioning. Symptoms interfere with physical activity, walking, sleeping, cooking, household cleaning, and lifting. 20% pain in spine vs 80% (radiating) pain in the extremity. Litigation: No. Worker's Compensation: No. Prior pain treatment has included: Medication(s): Tizanidine, [place], Cymbalta, Gabapentin, Tylenol Arthritis, Percocet, ibuprofen Injection(s): [address] Driscoll with substantial relief. Patient Entered Questionnaires PROMIS Score Percentiles 08/23/2023 03/10/2024 06/18/2024 PROMIS Global Health Scale Physical Health Percentile 15 2 10 Mental Health Percentile 19* 2 9 Patient-reported 07/26/2024 07/29/2024 Physical Health Physical Function Percentile 0 Pain Interference Percentile 2 Percentiles provide an indication of how the patient's score ranks in relation to the general population. Higher percentile rankings indicate better function/quality of life. 50th percentile is the average of the general population and indicates half of respondents had a worse score. > 31st percentile is within normal limits or better * < 31st percentile is at least ? SD worse than population, which may be clinically relevant < 16th percentile is at least 1 SD worse than population and warrants attention ALLERGIES Allergen Reactions Lyrica [Pregabalin] Anaphylaxis Not sure if accurate. Can take gabapentin. Patient is unsure of reaction. Accupril [Quinapril* Intolerance dizziness Actos [Pioglitazone] Swelling Amlodipine Swelling Leg edema Atenolol Swelling Atorvastatin Intolerance Muscle cramps and weakness Celebrex [Celecoxib] Swelling Effexor [Venlafaxin* swelling high blood pressure Januvia [Sitaglipti* GI Upset, Other: See Comments Patient states she couldn't eat Metoprolol Swelling Mobic [Meloxicam] GI Upset Prozac [Fluoxetine * Intolerance tremor Remeron [Mirtazapin* Rash Risperidone Mental Status Change Seroquel [Quetiapin* hypertension,swelling Trulicity [Dulaglut* Intolerance Caused nausea and cramps Vancomycin Itching, Other: See Comments, Rash red all over Other reaction(s): Other: See Comments red all over Vioxx [Rofecoxib] GI Upset Wellbutrin [Bupropi* Intolerance nightmares Current Medications: Pain medications reviewed and reconciled in the medication list: Yes. Current Outpatient Medications Medication Sig tiZANidine (ZANAFLEX) 4 mg tablet Take 1 tablet by mouth every 8 hours as needed (muscle spasms). spironolactone (ALDACTONE) 25 mg tablet Take 1 tablet by mouth once daily. ARIPiprazole (ABILIFY) 10 mg tablet Take 1 tablet by mouth once daily. HYDROcodone-acetaminophen (NORCO) 5-325 mg per tablet Take 1 tablet by mouth two times a day as needed for pain for up to 30 days. traZODone (DESYREL) 100 mg tablet Take 1 tablet by mouth daily at bedtime. DULoxetine (CYMBALTA) 60 mg capsule Take 1 capsule by mouth once daily. rOPINIRole (REQUIP) 0.25 mg tablet Take 1 tablet by mouth daily at bedtime. topiramate (TOPAMAX) 25 mg tablet Take 1 tablet by mouth once daily. gabapentin (NEURONTIN) 600 mg tablet Take 1 tablet by mouth two times a day for 180 days. Blood-Glucose Meter,Continuous (DEXCOM G7 ADVANCED REGISTERED NURSE) misc Use to check blood sugar at least four (4) times daily. Blood-Glucose Sensor (DEXCOM G7 SENSOR) jessica Apply new sensor every ten (10) days. hydrOXYzine pamoate (VISTARIL) 25 mg capsule Take 1 capsule by mouth three times a day as needed. potassium chloride SR (MICRO-K) 8 mEq cpER Take 1 capsule by mouth daily with breakfast. pravastatin (PRAVACHOL) 20 mg tablet Take 1 tablet by mouth daily at bedtime. furosemide (LASIX) 80 mg tablet Take 1 tablet by mouth once daily. famotidine (more content not included)... [facility] 07-30-2024 History of Present illness Narrative Images from the original note were not included. [facility] Pain Management Department Date: July 30, 2024 - 11:20 AM Wilton Khan is seen in consultation requested by Nehemiah Herbert for an opinion regarding knee and back pain. My final recommendations will be communicated back to the requesting physician by way of shared medical record or via US mail. Piedad Chief Complaint: back and knee pain SUBJECTIVE: Wilton Khan, is a 64 year old female with morbid obesity who presents with bilateral knee worse on the left side and back pain. The pain started years ago, no specific preceding injury or trauma.. The pain onset was gradual and chronic in nature. The patient states that the current pain is persistent. Her pain is located in the bilateral knees and and intermittently radiates to the upper leg and involves the frontal distribution with burning dysesthesia.// The pain is described as numbness, pressure, and stiffness. The pain intensity is rated 8. The pain is exacerbated by prolonged sitting and relieved by medication, reposition, relaxation, cold, exercise, heat, pillow support, and positioning. Symptoms interfere with physical activity, walking, sleeping, cooking, household cleaning, and lifting. 20% pain in spine vs 80% (radiating) pain in the extremity. Litigation: No. Worker's Compensation: No. Prior pain treatment has included: Medication(s): Tizanidine, [place], Cymbalta, Gabapentin, Tylenol Arthritis, Percocet, ibuprofen Injection(s): [address] Driscoll with substantial relief. Patient Entered Questionnaires PROMIS Score Percentiles 08/23/2023 03/10/2024 06/18/2024 PROMIS Global Health Scale Physical Health Percentile 15 2 10 Mental Health Percentile 19* 2 9 Patient-reported 07/26/2024 07/29/2024 Physical Health Physical Function Percentile 0 Pain Interference Percentile 2 Percentiles provide an indication of how the patient's score ranks in relation to the general population. Higher percentile rankings indicate better function/quality of life. 50th percentile is the average of the general population and indicates half of respondents had a worse score. > 31st percentile is within normal limits or better * < 31st percentile is at least SD worse than population, which may be clinically relevant < 16th percentile is at least 1 SD worse than population and warrants attention ALLERGIES Allergen Reactions Lyrica [Pregabalin] Anaphylaxis Not sure if accurate. Can take gabapentin. Patient is unsure of reaction. Accupril [Quinapril* Intolerance dizziness Actos [Pioglitazone] Swelling Amlodipine Swelling Leg edema Atenolol Swelling Atorvastatin Intolerance Muscle cramps and weakness Celebrex [Celecoxib] Swelling Effexor [Venlafaxin* swelling high blood pressure Januvia [Sitaglipti* GI Upset, Other: See Comments Patient states she couldn't eat Metoprolol Swelling Mobic [Meloxicam] GI Upset Prozac [Fluoxetine * Intolerance tremor Remeron [Mirtazapin* Rash Risperidone Mental Status Change Seroquel [Quetiapin* hypertension,swelling Trulicity [Dulaglut* Intolerance Caused nausea and cramps Vancomycin Itching, Other: See Comments, Rash red all over Other reaction(s): Other: See Comments red all over Vioxx [Rofecoxib] GI Upset Wellbutrin [Bupropi* Intolerance nightmares Current Medications: Pain medications reviewed and reconciled in the medication list: Yes. Current Outpatient Medications Medication Sig tiZANidine (ZANAFLEX) 4 mg tablet Take 1 tablet by mouth every 8 hours as needed (muscle spasms). spironolactone (ALDACTONE) 25 mg tablet Take 1 tablet by mouth once daily. ARIPiprazole (ABILIFY) 10 mg tablet Take 1 tablet by mouth once daily. HYDROcodone-acetaminophen (NORCO) 5-325 mg per tablet Take 1 tablet by mouth two times a day as needed for pain for up to 30 days. traZODone (DESYREL) 100 mg tablet Take 1 tablet by mouth daily at bedtime. DULoxetine (CYMBALTA) 60 mg capsule Take 1 capsule by mouth once daily. rOPINIRole (REQUIP) 0.25 mg tablet Take 1 tablet by mouth daily at bedtime. topiramate (TOPAMAX) 25 mg tablet Take 1 tablet by mouth once daily. gabapentin (NEURONTIN) 600 mg tablet Take 1 tablet by mouth two times a day for 180 days. Blood-Glucose Meter,Continuous (DEXCOM G7 ADVANCED REGISTERED NURSE) misc Use to check blood sugar at least four (4) times daily. Blood-Glucose Sensor (DEXCOM G7 SENSOR) jessica Apply new sensor every ten (10) days. hydrOXYzine pamoate (VISTARIL) 25 mg capsule Take 1 capsule by mouth three times a day as needed. potassium chloride SR (MICRO-K) 8 mEq cpER Take 1 capsule by mouth daily with breakfast. pravastatin (PRAVACHOL) 20 mg tablet Take 1 tablet by mouth daily at bedtime. furosemide (LASIX) 80 mg tablet Take 1 tablet by mouth once daily. famotidine (PEPCID) 40 mg tablet Take 1 tablet by mouth once daily. Cholecalciferol, Vitamin D3, 125 mcg (5,000 unit) cap Take 1 capsule by mouth once daily. zpbyoele-obph-[id number]-C-gio-bosw (OSTEO BI-FLEX TRIPLE STRENGTH) 750 mg-644 mg- 30 mg-1 mg tab Take 1 tablet by mouth two times a day. insulin glargine (LANTUS SOLOSTAR U-100 INSULIN) 100 unit/mL (3 mL) Inject 30 Units subcutaneously every morning. ibuprofen (MOTRIN) 800 mg tablet Take 1 tablet by mouth every 8 hours as needed for pain. Take with food. acetaminophen (ARTHRITIS PAIN RELIEF) 650 mg CR tablet Take 2 tablets by mouth every 8 hours as needed for pain. Not in same 8h period as [place] (hydrocodone Tylenol) blood sugar diagnostic (BLOOD GLUCOSE TEST) test strip Test blood sugars up to 4 times daily as directed. Dx: Type 2 DM - Controlled E11.9 Insulin: Yes. Insulin Maljamar, Disposable, (BD ULTRA-FINE MADI PEN NEEDLE) 32 gauge x 32 Use one needle for each dose. 2/day. Lancets Test blood sugar(s) up to 4 times daily. Dx: Type 2 DM - Controlled E11.9 Insulin: Yes Disposable Gloves (DISPOSABLE LATEX-FREE GLOVES) misc 1 Box once every month. Adhesive Bandage ([place] DRESSING) 6 X 6 bndg Apply to affected area once daily. Miscellaneous Medical Supply Collagen dressing 2x2 ascorbic acid (VITAMIN C ORAL) Take 1 tablet by mouth once daily. No current facility-administered medications for this visit. PAST MEDICAL HISTORY Diagnosis Date Abnormal glandular Papanicolaou smear of cervix 05/30/05 ABNL GLANDULAR PAP SMEAR CERVIX Acute gastritis without mention of hemorrhage Anxiety state, unspecified Arrhythmia Chronic cholecystitis Chronic obstructive pulmonary disease (COPD) ([facility]) Congestive heart failure (HCC) 10/03/2011 Diabetes ([facility]) diabetes II 2010 Diaphragmatic hernia without mention of obstruction or gangrene Dysthymic disorder Depression (non-psychotic) Esophageal reflux Essential hypertension, benign Generalized OA Hyperprolactinemia (HCC) 10/13/2005 Localized osteoarthrosis not specified whether primary or secondary, lower leg Major depressive disorder, recurrent episode Mucous polyp of cervix 07/19/05 Other and unspecified anterior pituitary hyperfunction (HCC) 10/13/05 elevated prolactin level-was normal in 2011 PMH - PAST MEDICAL HISTORY OF sleep apnea PMH - PAST MEDICAL HISTORY OF sleep apnea SVT (supraventricular tachycardia) (HCC) 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 Type 2 diabetes mellitus without complication, with long-term current use of insulin (HCC) 12/22/2013 PAST SURGICAL HISTORY Procedure Laterality Date BIOPSY CERVIX SINGLE/MULT/EXCISION OF LESION SPX 07/19/2005 endocervical polyp COLONOSCOPY FLX DX W/COLLJ SPEC WHEN PFRMD 01/09/2012 Colonoscopy repeat 10 years COLPOSCOPY CERVIX UPPER/ADJACENT VAGINA Colposcopy EGD TRANSORAL BIOPSY SINGLE/MULTIPLE 01/16/2007 ESOPHAGOGASTRODUODENOSCOPY TRANSORAL DIAGNOSTIC 01/09/2012 EGD HERNIA REPAIR HX 11/2015 ventral HYSTEROSCOPY DX 12/17/2014 D&C LAPS SURG CHOLECYSTECTOMY W/CHOLANGIOGRAPHY 05/15/2008 PARATHYROID FAMILY HISTORY Problem Relation Age of Onset Hypertension Mother Heart Mother concha stroke Diabetes Mother Stroke Mother Massive- Arthritis Mother Osteoarthritis Hypertension Father COPD Father Hypertension Sister Arthritis Sister Hypertension Sister Diabetes Sister Arthritis Sister Hypertension Sister Diabetes Sister Arthritis Sister Hypertension Sister Diabetes Sister other (Rheumatoid Arthritis) Sister Heart Brother Triple Bypass Heart Brother Heart Brother Heart Maternal Aunt Heart Maternal Uncle Social History: Alcohol Use: No Tobacco Use: Types: Cigarettes Drug Use: No 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) Years Of Education Completed: 9 years Marital Status: Single with no children REVIEW OF SYSTEMS: Constitutional: (-) Fever (-) Night Sweats (-) Weight Gain (-) Weight Loss (-) Fatigue Cardiovascular: (-) Chest Pain (-) Palpitations (-) Lightheadedness (-) Swelling of Ankles (-) Hx Heart Surgery Respiratory: (-) Shortness of Breath (-) Cough Gastrointestinal: (-) Incontinence (-) Abdominal Pain (-) Diarrhea Endocrine: (-) Thyroid Disorder (-) Diabetes Hematologic: (-) Prolonged Bleeding (-) Easy Bruising Genitourinary: (-) Incontinence (-) Frequency (-) Urinary Urgency Skin: (-) Rashes (-) Itching (-) Other Lesions Neurologic: (-) Headache (-) Double Vision (-) Confusion Psychiatric: (+) Depression (+) Anxiety (-) Delusions (-) Hallucinations (-) Suicidal Thoughts OARRS Report reviewed: Yes Narcotic Agreement reviewed and signed?: N/A Baseline Urine Toxicology obtained: N/A Urine Panel: Lab Results Component Value Date Cannabinoid Quant, Urine <16 11/08/2011 Benzoylecognine Quant, Urine <24 11/08/2011 6-Acetylmorphine Quant, Urine <5 11/08/2011 Amphetamine Quant, Urine <25 06/02/2024 Amphetamine Quant, Urine <11/08/2011 Methamphetamine Quant, Urine <25 06/02/2024 Methamphetamine Quant, Urine <8 11/08/2011 Buprenorphine Quant, Urine <20 11/08/2011 Norbuprenorphine Quant, Urine <11/08/2011 Methadone Quant, Urine <16 11/08/2011 EDDP Quant, Urine <11/08/2011 Tramadol Quant, Urine <25 11/08/2011 Desmethyltramadol Quant, Urine <20 11/08/2011 Fentanyl Quant, Urine <11/08/2011 Norfentanyl Quant, Urine <11/08/2011 Codeine Quant, Urine <11 11/08/2011 Morphine Quant, Urine <11/08/2011 Dihydrocodeine Quant, Urine 99 11/08/2011 Hydrocodone Quant, Urine 324 (H) 11/08/2011 Oxycodone Quant, Urine <11/08/2011 Hydromorphone Quant, Urine 8 11/08/2011 Oxymorphone Quant, Urine <5 11/08/2011 Creatinine,Ur Pain Joseph 10-20 11/08/2011 Urine pH, Pain Joseph 4-10 11/08/2011 Specific Perry,Ur Pain Joseph 1.005-1.020 11/08/2011 Oxidants,Ur Negative 11/08/2011 Specimen Quality, Ur Pain Joseph Specimen quality results within acceptable limits. 11/08/2011 The pain panel was N/A OBJECTIVE: Performed in conjunction with observation. The patient was alert and oriented x3. The patient was in no acute distress. Lungs: Clear, negative for dyspnea or distress. CVR: Negative for SOB or peripheral edema. Neck: Supple. The range of motion was intact. Back: Range of motion of the trunk was limited. Extremities: Obesity of the bilateral lower extremities. Bilateral knee tenderness diffusely with palpation. Motor: Negative focal deficits Gait: The patient arrives in wheelchair. She is only temporarily ambulatory using a walker at home. Medical record and diagnostic tests reviewed for today's visit: The [facility] EMR was reviewed during the visit ASSESSMENT: (Z68.43) BMI 50.0-59.9, adult (HCC) (primary encounter diagnosis) (M50.30) DDD (degenerative disc disease), cervical (M79.18) Diffuse myofascial pain syndrome (M17.0) Bilateral primary osteoarthritis of knee PLAN: 1. Her predominant pain is mostly in the knees bilaterally worse on the left side. X-ray of the knees reveal significant degeneration of the knees worse on the left side. She is not a candidate for knee surgery due to her obesity. I do not believe nerve block of the knee would provide any significant relief of pain or ability to ambulate better. It was discussed at length that the focus should be the weight loss. Again, we will make a referral to weight loss program. 2. No interventional procedures indicated 3. The patient is currently taking of Vicodin 5/325 mg. She states that there are breakthrough pain. I will recommend increasing Vicodin to extra strength 7.5 mg/325 1 p.o. twice daily as needed. 4. Counseled patient regarding the importance of weight loss, diet, and exercise. 5. Follow up: As needed basis The above plan and management options were discussed with patient. The patient is in agreement with the above and verbalized understanding. I have discussed and confirmed the above treatment plan with the patient and I have reviewed the nurses notes and I am aware of the family/social history. I have confirmed ROS findings. Aleah Driscoll MD 1. This document has been created with the use of voice recognition technology. It may contain inaccuracies: (e.g. misspellings, inaccurate syntax or word sense) that have escaped review. 2. The nurse practitioner, nursing staff and medical assistants are a major part of YOUR TREATMENT TEAM and will be handling your phone calls and inquiries, if any. Unless explicitly told otherwise at the time of your office visit, your study results and ensuing treatment plans will be discussed during your follow-up appointment. If you do not have a follow-up appointment and wish to discuss any issues, please set up an appointment. 3. All of the office notes, study results, and other pertinent documentation generated as part of your evaluation will be available to you and to your Primary Care Physician (PCP). Use of this material to complete such forms will be at the discretion of your PCP/referring physician. July 30, 2024 cc: Nehemiah Herbert [address] [facility] [place] [address] Results of consultation to be transmitted via electronic medical record for those providers who practice within [facility] or with access to [employer] via MD Connect, or via letter. documented in this encounter [facility] 07-29-2024 Telephone encounter Note The patient has been identified by name and date of : Yes Caregiver verified no other encounters exist for this prescription request: Yes Caregiver confirmed with patient/requestor that no other refills are due, in the near future, with this provider at this time: Yes The last office visit in the department: 06/02/2024 Does the patient have a future office visit with this provider/department: 08/08/2024 Requested Prescriptions Pending Prescriptions Disp Refills tiZANidine (ZANAFLEX) 4 mg tablet 90 tablet 2 Sig: Take 1 tablet by mouth every 8 hours as needed (muscle spasms). Emily Garcia RN July 29, 2024 12:34 PM [facility] 07-29-2024 Miscellaneous Notes The patient has been identified by name and date of : Yes Caregiver verified no other encounters exist for this prescription request: Yes Caregiver confirmed with patient/requestor that no other refills are due, in the near future, with this provider at this time: Yes The last office visit in the department: 06/02/2024 Does the patient have a future office visit with this provider/department: 08/08/2024 Requested Prescriptions Pending Prescriptions Disp Refills tiZANidine (ZANAFLEX) 4 mg tablet 90 tablet 2 Sig: Take 1 tablet by mouth every 8 hours as needed (muscle spasms). Emily Garcia RN July 29, 2024 12:34 PM documented in this encounter [facility] 07-22-2024 Telephone encounter Note The patient has been identified by name and date of : Yes Caregiver verified no other encounters exist for this prescription request: Yes Caregiver confirmed with patient/requestor that no other refills are due, in the near future, with this provider at this time: Yes The last office visit in the department: 06/02/2024 Does the patient have a future office visit with this provider/department: 08/08/2024 Requested Prescriptions Pending Prescriptions Disp Refills spironolactone (ALDACTONE) 25 mg tablet 90 tablet 0 Sig: Take 1 tablet by mouth once daily. Emily Garcia RN July 22, 2024 12:28 PM [facility] 07-22-2024 Miscellaneous Notes The patient has been identified by name and date of : Yes Caregiver verified no other encounters exist for this prescription request: Yes Caregiver confirmed with patient/requestor that no other refills are due, in the near future, with this provider at this time: Yes The last office visit in the department: 06/02/2024 Does the patient have a future office visit with this provider/department: 08/08/2024 Requested Prescriptions Pending Prescriptions Disp Refills spironolactone (ALDACTONE) 25 mg tablet 90 tablet 0 Sig: Take 1 tablet by mouth once daily. Emily Garcia RN July 22, 2024 12:28 PM documented in this encounter [facility] 07-04-2024 Telephone encounter Note Prescription Refill Information The patient has been identified by name and date of : Yes Caregiver verified no other encounters exist for this prescription request: Yes Caregiver confirmed with patient/requestor that no other refills are due, in the near future, with this provider at this time: Yes The last office visit in the department: 06/02/24 Does the patient have a future office visit with this provider/department: Yes (08/08/24) Requested Prescriptions Pending Prescriptions Disp Refills ARIPiprazole (ABILIFY) 10 mg tablet 90 tablet 1 Sig: Take 1 tablet by mouth once daily. HYDROcodone-acetaminophen (NORCO) 5-325 mg per tablet 60 tablet 0 Sig: Take 1 tablet by mouth two times a day as needed for pain for up to 30 days. Daisy Perea RN July 04, 2024 10:50 AM [facility] 07-04-2024 Miscellaneous Notes Prescription Refill Information The patient has been identified by name and date of : Yes Caregiver verified no other encounters exist for this prescription request: Yes Caregiver confirmed with patient/requestor that no other refills are due, in the near future, with this provider at this time: Yes The last office visit in the department: 06/02/24 Does the patient have a future office visit with this provider/department: Yes (08/08/24) Requested Prescriptions Pending Prescriptions Disp Refills ARIPiprazole (ABILIFY) 10 mg tablet 90 tablet 1 Sig: Take 1 tablet by mouth once daily. HYDROcodone-acetaminophen (NORCO) 5-325 mg per tablet 60 tablet 0 Sig: Take 1 tablet by mouth two times a day as needed for pain for up to 30 days. Daisy Perea RN July 04, 2024 10:50 AM documented in this encounter [facility] 07-03-2024 Telephone encounter Note Phoned patient and assisted with transfer to master scheduler to get pain management appt set up. [facility] 07-03-2024 Miscellaneous Notes Phoned patient and assisted with transfer to master scheduler to get pain management appt set up. Referral placed Patient returns call and provider message below reviewed. Patient agreeable to pain management. Would like to stay local with [facility] but if not possible then would want referral sent to [facility]. Emily Garcia RN Called and left a voicemail for the Patient to call back and ask for a nurse to receive the providers message. Yokasta Reese RN We would need to refer her to pain management. Willing? Patient calling asking if PCP would be able to increase her [place] to three times daily? She said she is having a lot of arthritis pain both legs and lower back. Patient next appt is scheduled for 08/08/2024 virtual visit. Patient uses [facility] for her pharmacy. Please advise documented in this encounter [facility] 07-03-2024 Telephone encounter Note Referral placed [facility] 07-03-2024 Telephone encounter Note Patient returns call and provider message below reviewed. Patient agreeable to pain management. Would like to stay local with [facility] but if not possible then would want referral sent to [facility]. Emily Garcia RN [facility] 07-03-2024 Telephone encounter Note Called and left a voicemail for the Patient to call back and ask for a nurse to receive the providers message. Yokasta Reese, RN T [facility] 07-02-2024 Telephone encounter Note We would need to refer her to pain management. Willing? [facility] 07-02-2024 Telephone encounter Note Patient calling asking if PCP would be able to increase her [place] to three times daily? She said she is having a lot of arthritis pain both legs and lower back. Patient next appt is scheduled for 08/08/2024 virtual visit. Patient uses [facility] for her pharmacy. Please advise [facility] 06-18-2024 History of Present illness Narrative Patient presents with: Follow Up HPI:This visit is a virtual encounter. It required patient-provider interaction for the medical decision making as documented below. Patient has elected to have a visit through distance medicine I have communicated my name and active licensure. The patient's identity and physical location were verified at the time of this visit. Either the patient or their legal unit support representative has been informed of the risks and benefits of -- and alternatives to -- treatment through a remote evaluation and consents to proceed with the evaluation remotely. Saw [facility] and they had changed a number of her meds. Stopped duloxetine, Topamax, trazodone and started elavil. Not taking the elavil-was having constipation and constipation. She is back on Cymbalta, Topamax at once a day Back on trazodone. They had changed meds due to not sleeping well but feels better on her current meds. Remains on hydrocodone. She feels pretty well right now. Currently, pain is controlled. Sleeping well. Emotionally is doing. No chest pain or shortness of breath. Discussed that she does have polypharmacy but we can reduce more slowly. Does need refills. MEDICATIONS: Current Outpatient Medications Medication Sig DULoxetine (CYMBALTA) 60 mg capsule Take 1 capsule by mouth once daily. topiramate (TOPAMAX) 25 mg tablet Take 1 tablet by mouth once daily. HYDROcodone-acetaminophen (NORCO) 5-325 mg per tablet Take 1 tablet by mouth two times a day as needed for pain for up to 30 days. gabapentin (NEURONTIN) 600 mg tablet Take 1 tablet by mouth two times a day for 180 days. amitriptyline (ELAVIL) 50 mg tablet Take 1 tablet by mouth daily at bedtime. tiZANidine (ZANAFLEX) 4 mg tablet Take 1 tablet by mouth every 8 hours as needed (muscle spasms). Blood-Glucose Meter,Continuous (DEXCOM G7 ADVANCED REGISTERED NURSE) misc Use to check blood sugar at least four (4) times daily. Blood-Glucose Sensor (DEXCOM G7 SENSOR) jessica Apply new sensor every ten (10) days. hydrOXYzine pamoate (VISTARIL) 25 mg capsule Take 1 capsule by mouth three times a day as needed. ARIPiprazole (ABILIFY) 10 mg tablet Take 1 tablet by mouth once daily. spironolactone (ALDACTONE) 25 mg tablet Take 1 tablet by mouth once daily. potassium chloride SR (MICRO-K) 8 mEq cpER Take 1 capsule by mouth daily with breakfast. pravastatin (PRAVACHOL) 20 mg tablet Take 1 tablet by mouth daily at bedtime. furosemide (LASIX) 80 mg tablet Take 1 tablet by mouth once daily. famotidine (PEPCID) 40 mg tablet Take 1 tablet by mouth once daily. Cholecalciferol, Vitamin D3, 125 mcg (5,000 unit) cap Take 1 capsule by mouth once daily. xcvgcqhh-hxpf-gab4-C-gio-bosw (OSTEO BI-FLEX TRIPLE STRENGTH) 750 mg-644 mg- 30 mg-1 mg tab Take 1 tablet by mouth two times a day. insulin glargine (LANTUS SOLOSTAR U-100 INSULIN) 100 unit/mL (3 mL) Inject 30 Units subcutaneously every morning. ibuprofen (MOTRIN) 800 mg tablet Take 1 tablet by mouth every 8 hours as needed for pain. Take with food. rOPINIRole (REQUIP) 0.25 mg tablet Take 1 tablet by mouth daily at bedtime. acetaminophen (ARTHRITIS PAIN RELIEF) 650 mg CR tablet Take 2 tablets by mouth every 8 hours as needed for pain. Not in same 8h period as [place] (hydrocodone Tylenol) blood sugar diagnostic (BLOOD GLUCOSE TEST) test strip Test blood sugars up to 4 times daily as directed. Dx: Type 2 DM - Controlled E11.9 Insulin: Yes. Insulin [place], Disposable, (BD ULTRA-FINE MADI PEN NEEDLE) 32 gauge x 5/32 Use one needle for each dose. 2/day. Lancets Test blood sugar(s) up to 4 times daily. Dx: Type 2 DM - Controlled E11.9 Insulin: Yes Disposable Gloves (DISPOSABLE LATEX-FREE GLOVES) misc 1 Box once every month. Adhesive Bandage ([place] DRESSING) 6 X 6 bndg Apply to affected area once daily. Miscellaneous Medical Supply Collagen dressing 2x2 ascorbic acid (VITAMIN C ORAL) Take 1 tablet by mouth once daily. No current facility-administered medications for this visit. ALLERGIES: ALLERGIES Allergen Reactions Lyrica [Pregabalin] Anaphylaxis Not sure if accurate. Can take gabapentin. Patient is unsure of reaction. Accupril [Quinapril* Intolerance dizziness Actos [Pioglitazone] Swelling Amlodipine Swelling Leg edema Atenolol Swelling Atorvastatin Intolerance Muscle cramps and weakness Celebrex [Celecoxib] Swelling Effexor [Venlafaxin* swelling high blood pressure Januvia [Sitaglipti* GI Upset, Other: See Comments Patient states she couldn't eat Metoprolol Swelling Mobic [Meloxicam] GI Upset Prozac [Fluoxetine * Intolerance tremor Remeron [Mirtazapin* Rash Risperidone Mental Status Change Seroquel [Quetiapin* hypertension,swelling Trulicity [Dulaglut* Intolerance Caused nausea and cramps Vancomycin Itching, Other: See Comments, Rash red all over Other reaction(s): Other: See Comments red all over Vioxx [Rofecoxib] GI Upset Wellbutrin [Bupropi* Intolerance nightmares PAST MEDICAL HISTORY Diagnosis Date Abnormal glandular Papanicolaou smear of cervix 05/30/05 ABNL GLANDULAR PAP SMEAR CERVIX Acute gastritis without mention of hemorrhage Anxiety state, unspecified Arrhythmia Chronic cholecystitis Chronic obstructive pulmonary disease (COPD) (HCC) Congestive heart failure (HCC) 10/03/2011 Diabetes (HCC) diabetes II 2010 Diaphragmatic hernia without mention of obstruction or gangrene Dysthymic disorder Depression (non-psychotic) Esophageal reflux Essential hypertension, benign Generalized OA Hyperprolactinemia (HCC) 10/13/2005 Localized osteoarthrosis not specified whether primary or secondary, lower leg Major depressive disorder, recurrent episode Mucous polyp of cervix 07/19/05 Other and unspecified anterior pituitary hyperfunction (HCC) 10/13/05 elevated prolactin level-was normal in 2011 PMH - PAST MEDICAL HISTORY OF sleep apnea PMH - PAST MEDICAL HISTORY OF sleep apnea SVT (supraventricular tachycardia) ([facility]) 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 Type 2 diabetes mellitus without complication, with long-term current use of insulin ([facility]) 12/22/2013 PAST SURGICAL HISTORY Procedure Laterality Date BIOPSY CERVIX SINGLE/MULT/EXCISION OF LESION SPX 07/19/2005 endocervical polyp COLONOSCOPY FLX DX W/COLLJ SPEC WHEN PFRMD 01/09/2012 Colonoscopy repeat 10 years COLPOSCOPY CERVIX UPPER/ADJACENT VAGINA Colposcopy EGD TRANSORAL BIOPSY SINGLE/MULTIPLE 01/16/2007 ESOPHAGOGASTRODUODENOSCOPY TRANSORAL DIAGNOSTIC 01/09/2012 EGD HERNIA REPAIR HX 11/2015 ventral HYSTEROSCOPY DX 12/17/2014 D&C LAPS SURG CHOLECYSTECTOMY W/CHOLANGIOGRAPHY 05/15/2008 PARATHYROID FAMILY HISTORY Problem Relation Age of Onset Hypertension Mother Heart Mother concha stroke Diabetes Mother Stroke Mother Massive- Arthritis Mother Osteoarthritis Hypertension Father COPD Father Hypertension Sister Arthritis Sister Hypertension Sister Diabetes Sister Arthritis Sister Hypertension Sister Diabetes Sister Arthritis Sister Hypertension Sister Diabetes Sister other (Rheumatoid Arthritis) Sister Heart Brother Triple Bypass Heart Brother Heart Brother Heart Maternal Aunt Heart Maternal Uncle Social History Tobacco Use Smoking status: Former Current packs/day: 0.00 Average packs/day: 1 pack/day for 15.0 years (15.0 ttl pk-yrs) Types: Cigarettes Start date: 12/21/1979 Quit date: 12/20/1994 Years since quittin.5 Smokeless tobacco: Never Vaping Use Vaping status: Never Used Substance Use Topics Alcohol use: No Drug use: No Reviewed current medications, allergies, past medical history, surgical history, family history and social history today. REVIEW OF SYSTEMS All other reviewed and negative other than HPI. VITALS: Could not assess Last 4 Encounter Wt Readings: Date: Wt: 04/14/2024 164.7 kg (363 lb) 09/28/2023 166 kg (366 lb) 09/12/2023 0 kg () 05/29/2023 173.3 kg (382 lb) PHYSICAL EXAMINATION: Patient is alert and oriented during visit. Answers appropriately. Breathing comfortably.. chest rise normal. No audible wheeze. No pallor. ASSESSMENT/PLAN: 1. Congestive heart failure, unspecified HF chronicity, unspecified heart failure type (HCC) - ICD9: 428.0, ICD10: I50.9 - stable. 2. Major depressive disorder, recurrent episode, moderate (HCC) - ICD9: 296.32, ICD10: F33.1 - stable. 3. Anxiety state - ICD9: 300.00, ICD10: F41.1 - refilled meds. Call if any issues. - DULOXETINE 60 MG CAPSULE,DELAYED RELEASE Nehemiah Herbert MD documented in this encounter [facility] 06-18-2024 Note HNO ID: [id number] Author: NEHEMIAH HERBERT MD Service: ? Author Type: Physician Type: Progress Notes Filed: 06/18/2024 14:16 Note Text: Patient presents with: Follow Up HPI:This visit is a virtual encounter. It required patient-provider interaction for the medical decision making as documented below. Patient has elected to have a visit through distance medicine I have communicated my name and active licensure. The patient's identity and physical location were verified at the time of this visit. Either the patient or their legal unit support representative has been informed of the risks and benefits of -- and alternatives to -- treatment through a remote evaluation and consents to proceed with the evaluation remotely. Saw [facility] and they had changed a number of her meds. Stopped duloxetine, Topamax, trazodone and started elavil. Not taking the elavil-was having constipation and constipation. She is back on Cymbalta, Topamax at once a day Back on trazodone. They had changed meds due to not sleeping well but feels better on her current meds. Remains on hydrocodone. She feels pretty well right now. Currently, pain is controlled. Sleeping well. Emotionally is doing. No chest pain or shortness of breath. Discussed that she does have polypharmacy but we can reduce more slowly. Does need refills. MEDICATIONS: Current Outpatient Medications Medication Sig DULoxetine (CYMBALTA) 60 mg capsule Take 1 capsule by mouth once daily. topiramate (TOPAMAX) 25 mg tablet Take 1 tablet by mouth once daily. HYDROcodone-acetaminophen (NORCO) 5-325 mg per tablet Take 1 tablet by mouth two times a day as needed for pain for up to 30 days. gabapentin (NEURONTIN) 600 mg tablet Take 1 tablet by mouth two times a day for 180 days. amitriptyline (ELAVIL) 50 mg tablet Take 1 tablet by mouth daily at bedtime. tiZANidine (ZANAFLEX) 4 mg tablet Take 1 tablet by mouth every 8 hours as needed (muscle spasms). Blood-Glucose Meter,Continuous (DEXCOM G7 ADVANCED REGISTERED NURSE) misc Use to check blood sugar at least four (4) times daily. Blood-Glucose Sensor (DEXCOM G7 SENSOR) jessica Apply new sensor every ten (10) days. hydrOXYzine pamoate (VISTARIL) 25 mg capsule Take 1 capsule by mouth three times a day as needed. ARIPiprazole (ABILIFY) 10 mg tablet Take 1 tablet by mouth once daily. spironolactone (ALDACTONE) 25 mg tablet Take 1 tablet by mouth once daily. potassium chloride SR (MICRO-K) 8 mEq cpER Take 1 capsule by mouth daily with breakfast. pravastatin (PRAVACHOL) 20 mg tablet Take 1 tablet by mouth daily at bedtime. furosemide (LASIX) 80 mg tablet Take 1 tablet by mouth once daily. famotidine (PEPCID) 40 mg tablet Take 1 tablet by mouth once daily. Cholecalciferol, Vitamin D3, 125 mcg (5,000 unit) cap Take 1 capsule by mouth once daily. scgogvou-wiyd-[id number]-C-gio-bosw (OSTEO BI-FLEX TRIPLE STRENGTH) 750 mg-644 mg- 30 mg-1 mg tab Take 1 tablet by mouth two times a day. insulin glargine (LANTUS SOLOSTAR U-100 INSULIN) 100 unit/mL (3 mL) Inject 30 Units subcutaneously every morning. ibuprofen (MOTRIN) 800 mg tablet Take 1 tablet by mouth every 8 hours as needed for pain. Take with food. rOPINIRole (REQUIP) 0.25 mg tablet Take 1 tablet by mouth daily at bedtime. acetaminophen (ARTHRITIS PAIN RELIEF) 650 mg CR tablet Take 2 tablets by mouth every 8 hours as needed for pain. Not in same 8h period as [place] (hydrocodone Tylenol) blood sugar diagnostic (BLOOD GLUCOSE TEST) test strip Test blood sugars up to 4 times daily as directed. Dx: Type 2 DM - Controlled E11.9 Insulin: Yes. Insulin Maljamar, Disposable, (BD ULTRA-FINE MADI PEN NEEDLE) 32 gauge x 5/32 Use one needle for each dose. 2/day. Lancets Test blood sugar(s) up to 4 times daily. Dx: Type 2 DM - Controlled E11.9 Insulin: Yes Disposable Gloves (DISPOSABLE LATEX-FREE GLOVES) misc 1 Box once every month. Adhesive Bandage ([place] DRESSING) 6 X 6 bndg Apply to affected area once daily. Miscellaneous Medical Supply Collagen dressing 2x2 ascorbic acid (VITAMIN C ORAL) Take 1 tablet by mouth once daily. No current facility-administered medications for this visit. ALLERGIES: ALLERGIES Allergen Reactions Lyrica [Pregabalin] Anaphylaxis Not sure if accurate. Can take gabapentin. Patient is unsure of reaction. Accupril [Quinapril* Intolerance dizziness Actos [Pioglitazone] Swelling Amlodipine Swelling Leg edema Atenolol Swelling Atorvastatin Intolerance Muscle cramps and weakness Celebrex [Celecoxib] Swelling Effexor [Venlafaxin* swelling high blood pressure Januvia [Sitaglipti* GI Upset, Other: See Comments Patient states she couldn't eat Metoprolol Swelling Mobic [Meloxicam] GI Upset Prozac [Fluoxetine * Intolerance tremor Remeron [Mirtazapin* Rash Risperidone Mental Status Change Seroquel [Quetiapin* hypertension,swelling Trulicity [Dulaglut* Intolerance Caused nausea and cramps Vancomycin Itchi (more content not included)... [facility] 06-09-2024 Telephone encounter Note Spoke with patient to follow up on an update. She is feeling much better. She still has a little shakiness but has improved greatly improved. She will call back if needed. Louie Wade MA June 09, 2024 10:40 AM [facility] 06-09-2024 Miscellaneous Notes Spoke with patient to follow up on an update. She is feeling much better. She still has a little shakiness but has improved greatly improved. She will call back if needed. Louie Wade MA June 09, 2024 10:40 AM Checked back in with patient. She is feeling much better. She feels fine going into the weekend. She knows that can call in and speak with nurse agricultural economics teacher and can always call crisis if needed. Will work on setting up a follow up appt when speaking with her next week. Patient notified and verbalizes understanding. Will call to check on her again. Resume cymbalta and then topamax at once a day. Make sure has a follow up. Call next week with update or sooner prn Spoke with patient. She does have the medication that was stopped. She is very tearful. Feeling anxious and hopeless. Adela is there with her. She has no plans to harm herself. Her pain has been terrible. It is everywhere. [place] does help her with a lot of it. She said she would be sleeping ok if not for the pain also. Attempted to contact patient. No answer. Message left for pt to call office back. Please see Dr. Herbert's note below. Christal Rasmussen RN It looks like she stopped several medicines. Did she wean them? Does she still have them at home? Patient calling back. Crying. States she can't stop crying and is not sure why. States I can't take this. No SI/HI. Asked her what she is feeling, she states I don't know. I could just scream. States she feels she may need to go back on medications that were changed for her this week during her 06/02/24 visit with Dario Markham CNP. States she doesn't know what she should do. Reports she lives alone. Has a sister she could call to talk to. Says she is unable to come in for OV today or do virtual visit. During this call, patient noted that she has hydroxyzine medication that was ordered for her earlier this year, but she has not taken in awhile. States she will take one of those now and see if this helps her. Dario Markham CNP is out of the office today. Pt asking if Dr. Herbert could review and advise anything. Informed pt to call back with an update later this afternoon or if sx's worsen. Christal Rasmussen RN patient is calling in due to she was seen on Sunday in office and was taken off of cymbalta, trazadone, and topirmate. those medication were replaced to amitriptyline at night. patient is calling in stating that she is not feeling well on this medication or with being off the other medication. patient states that it feels like her heart is racing (no chest pain or SOB), has leg weakness, fatigue is worse, and like she just wants to sleep. Patient is wondering what she is to do. Please review and advise. patient needs called back with information. documented in this encounter [facility] 06-06-2024 Telephone encounter Note Checked back in with patient. She is feeling much better. She feels fine going into the weekend. She knows that can call in and speak with nurse agricultural economics teacher and can always call crisis if needed. Will work on setting up a follow up appt when speaking with her next week. [facility] 06-06-2024 Telephone encounter Note Patient notified and verbalizes understanding. Will call to check on her again. [facility] 06-06-2024 Telephone encounter Note Resume cymbalta and then topamax at once a day. Make sure has a follow up. Call next week with update or sooner prn [facility] 06-06-2024 Telephone encounter Note Spoke with patient. She does have the medication that was stopped. She is very tearful. Feeling anxious and hopeless. Adela is there with her. She has no plans to harm herself. Her pain has been terrible. It is everywhere. [place] does help her with a lot of it. She said she would be sleeping ok if not for the pain also. [facility] 06-06-2024 Telephone encounter Note Attempted to contact patient. No answer. Message left for pt to call office back. Please see Dr. Herbert's note below. Christal Rasmussen RN [facility] 06-06-2024 Telephone encounter Note It looks like she stopped several medicines. Did she wean them? Does she still have them at home? T [facility] 06-06-2024 Telephone encounter Note Patient calling back. Crying. States she can't stop crying and is not sure why. States I can't take this. No SI/HI. Asked her what she is feeling, she states I don't know. I could just scream. States she feels she may need to go back on medications that were changed for her this week during her 06/02/24 visit with Dario Markham CNP. States she doesn't know what she should do. Reports she lives alone. Has a sister she could call to talk to. Says she is unable to come in for OV today or do virtual visit. During this call, patient noted that she has hydroxyzine medication that was ordered for her earlier this year, but she has not taken in awhile. States she will take one of those now and see if this helps her. Dario Markham CNP is out of the office today. Pt asking if Dr. Herbert could review and advise anything. Informed pt to call back with an update later this afternoon or if sx's worsen. Christal Rasmussen RN [facility] 06-06-2024 Telephone encounter Note patient is calling in due to she was seen on Sunday in office and was taken off of cymbalta, trazadone, and topirmate. those medication were replaced to amitriptyline at night. patient is calling in stating that she is not feeling well on this medication or with being off the other medication. patient states that it feels like her heart is racing (no chest pain or SOB), has leg weakness, fatigue is worse, and like she just wants to sleep. Patient is wondering what she is to do. Please review and advise. patient needs called back with information. [facility] 06-02-2024 Note Addended by: JOI MARKHAM on: 06/02/2024 12:18 PM Modules accepted: Orders [facility] 06-02-2024 Miscellaneous Notes Addended by: JOI MARKHAM on: 06/02/2024 12:18 PM Modules accepted: Orders Addended by: LOUIE WADE on: 06/02/2024 11:34 AM Modules accepted: Orders documented in this encounter [facility] 06-02-2024 Note Addended by: Akhil WADE on: 06/02/2024 11:34 AM Modules accepted: Orders [facility] 06-02-2024 Instructions Joi Markham APRN.CNP - 06/02/2024 11:16 AM EDT Stop duloxetine Stop topiramate Stop trazodone Add amitriptyline 50 mg at bedtime Get labs drawn today documented in this encounter [facility] 06-02-2024 Note HNO ID: [id number] Author: JOI MARKHAM APRN.CNP Service: ? Author Type: Nurse Practitioner Type: Progress Notes Filed: 06/02/2024 11:23 Note Text: This is a 64 year old female who presents today with: No chief complaint on file. HISTORY OF PRESENT ILLNESS: Wilton Khan is a 64 year old female. No chief complaint on file. Here today for pain. Having muscle spasms. Pain in fingers, shoulders, low back, knees, ankles, and legs in general. Taking percocet. [place] not helpful. On duloxetine and gabapentin 600 mg 2 x day- 3 times a day makes her sleepy. Also on topiramate 25 mg 2 x day. Pain for at least a month. No fever or chills PAST MEDICAL HISTORY: PAST MEDICAL HISTORY Diagnosis Date Abnormal glandular Papanicolaou smear of cervix 05/30/05 ABNL GLANDULAR PAP SMEAR CERVIX Acute gastritis without mention of hemorrhage Anxiety state, unspecified Arrhythmia Chronic cholecystitis Chronic obstructive pulmonary disease (COPD) ([facility]) Congestive heart failure ([facility]) 10/03/2011 Diabetes ([facility]) diabetes II 2010 Diaphragmatic hernia without mention of obstruction or gangrene Dysthymic disorder Depression (non-psychotic) Esophageal reflux Essential hypertension, benign Generalized OA Hyperprolactinemia ([facility]) 10/13/2005 Localized osteoarthrosis not specified whether primary or secondary, lower leg Major depressive disorder, recurrent episode Mucous polyp of cervix 07/19/05 Other and unspecified anterior pituitary hyperfunction ([facility]) 10/13/05 elevated prolactin level-was normal in 2011 PMH - PAST MEDICAL HISTORY OF sleep apnea PMH - PAST MEDICAL HISTORY OF sleep apnea SVT (supraventricular tachycardia) ([facility]) 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 Type 2 diabetes mellitus without complication, with long-term current use of insulin ([facility]) 12/22/2013 PAST SURGICAL HISTORY Procedure Laterality Date BIOPSY CERVIX SINGLE/MULT/EXCISION OF LESION SPX 07/19/2005 endocervical polyp COLONOSCOPY FLX DX W/COLLJ SPEC WHEN PFRMD 01/09/2012 Colonoscopy repeat 10 years COLPOSCOPY CERVIX UPPER/ADJACENT VAGINA Colposcopy EGD TRANSORAL BIOPSY SINGLE/MULTIPLE 01/16/2007 ESOPHAGOGASTRODUODENOSCOPY TRANSORAL DIAGNOSTIC 01/09/2012 EGD HERNIA REPAIR HX 11/2015 ventral HYSTEROSCOPY DX 12/17/2014 [facility] LAPS SURG CHOLECYSTECTOMY W/CHOLANGIOGRAPHY 05/15/2008 PARATHYROID ALLERGIES Lyrica [Pregabalin], Accupril [Quinapril Hcl], Actos [Pioglitazone], Amlodipine, Atenolol, Atorvastatin, Celebrex [Celecoxib], Effexor [Venlafaxine Hcl], Januvia [Sitagliptin], Metoprolol, Mobic [Meloxicam], Prozac [Fluoxetine Hcl], Remeron [Mirtazapine], Risperidone, Seroquel [Quetiapine Fumarate], Trulicity [Dulaglutide], Vancomycin, Vioxx [Rofecoxib], and Wellbutrin [Bupropion Hcl] MEDICATIONS Current Outpatient Medications Medication Sig topiramate (TOPAMAX) 25 mg tablet Take 1 tablet by mouth two times a day. tiZANidine (ZANAFLEX) 4 mg tablet Take 1 tablet by mouth every 8 hours as needed (muscle spasms). Blood-Glucose Meter,Continuous (DEXCOM G7 ADVANCED REGISTERED NURSE) [facility] [place] to check blood sugar at least four (4) times daily. Blood-Glucose Sensor (DEXCOM G7 SENSOR) jessica Apply new sensor every ten (10) days. hydrOXYzine pamoate (VISTARIL) 25 mg capsule Take 1 capsule by mouth three times a day as needed. ARIPiprazole (ABILIFY) 10 mg tablet Take 1 tablet by mouth once daily. potassium chloride SR (MICRO-K) 8 mEq cpER Take 1 capsule by mouth daily with breakfast. Blood-Glucose Transmitter (DEXCOM G6 TRANSMITTER) jessica Apply new transmitter every 90 days. Clean transmitter with an alcohol swab with each sensor change. pravastatin (PRAVACHOL) 20 mg tablet Take 1 tablet by mouth daily at bedtime. furosemide (LASIX) 80 mg tablet Take 1 tablet by mouth once daily. famotidine (PEPCID) 40 mg tablet Take 1 tablet by mouth once daily. Cholecalciferol, Vitamin D3, 125 mcg (5,000 unit) cap Take 1 capsule by mouth once daily. ooxavnmg-mkwe-fak2-C-gio-bosw (OSTEO BI-FLEX TRIPLE STRENGTH) 750 mg-644 mg- 30 mg-1 mg tab Take 1 tablet by mouth two times a day. DULoxetine (CYMBALTA) 60 mg capsule Take 1 capsule by mouth once daily. insulin glargine (LANTUS SOLOSTAR U-100 INSULIN) 100 unit/mL (3 mL) Inject 30 Units subcutaneously every morning. traZODone (DESYREL) 100 mg tablet Take 1 tablet by mouth daily at bedtime. ibuprofen (MOTRIN) 800 mg tablet Take 1 tablet by mouth every 8 hours as needed for pain. Take with food. rOPINIRole (REQUIP) 0.25 mg tablet Take 1 tablet by mouth daily at bedtime. acetaminophen (ARTHRITIS PAIN RELIEF) 650 mg CR tablet Take 2 tablets by mouth every 8 hours as needed for pain. Not in same 8h period as [place] (hydrocodone Tylenol) blood sugar diagnostic (BLOOD GLUCOSE TEST) test strip Test blood sugars up to 4 times daily as directed. Dx: Type 2 DM - Controlled E11.9 Insulin: Yes. Insulin Maljamar, Disposable, (BD ULTRA-FINE MADI PEN NEEDLE) 32 gauge x 5/ (more content not included)... [facility] 06-02-2024 History of Present illness Narrative This is a 64 year old female who presents today with: No chief complaint on file. HISTORY OF PRESENT ILLNESS: Wilton Khan is a 64 year old female. No chief complaint on file. Here today for pain. Having muscle spasms. Pain in fingers, shoulders, low back, knees, ankles, and legs in general. Taking percocet. [place] not helpful. On duloxetine and gabapentin 600 mg 2 x day- 3 times a day makes her sleepy. Also on topiramate 25 mg 2 x day. Pain for at least a month. No fever or chills PAST MEDICAL HISTORY: PAST MEDICAL HISTORY Diagnosis Date Abnormal glandular Papanicolaou smear of cervix 05/30/05 ABNL GLANDULAR PAP SMEAR CERVIX Acute gastritis without mention of hemorrhage Anxiety state, unspecified Arrhythmia Chronic cholecystitis Chronic obstructive pulmonary disease (COPD) ([facility]) Congestive heart failure ([facility]) 10/03/2011 Diabetes ([facility]) diabetes II 2010 Diaphragmatic hernia without mention of obstruction or gangrene Dysthymic disorder Depression (non-psychotic) Esophageal reflux Essential hypertension, benign Generalized OA Hyperprolactinemia ([facility]) 10/13/2005 Localized osteoarthrosis not specified whether primary or secondary, lower leg Major depressive disorder, recurrent episode Mucous polyp of cervix 07/19/05 Other and unspecified anterior pituitary hyperfunction ([facility]) 10/13/05 elevated prolactin level-was normal in 2011 PMH - PAST MEDICAL HISTORY OF sleep apnea PMH - PAST MEDICAL HISTORY OF sleep apnea SVT (supraventricular tachycardia) ([facility]) 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 Type 2 diabetes mellitus without complication, with long-term current use of insulin ([facility]) 12/22/2013 PAST SURGICAL HISTORY Procedure Laterality Date BIOPSY CERVIX SINGLE/MULT/EXCISION OF LESION SPX 07/19/2005 endocervical polyp COLONOSCOPY FLX DX W/COLLJ SPEC WHEN PFRMD 01/09/2012 Colonoscopy repeat 10 years COLPOSCOPY CERVIX UPPER/ADJACENT VAGINA Colposcopy EGD TRANSORAL BIOPSY SINGLE/MULTIPLE 01/16/2007 ESOPHAGOGASTRODUODENOSCOPY TRANSORAL DIAGNOSTIC 01/09/2012 EGD HERNIA REPAIR HX 11/2015 ventral HYSTEROSCOPY DX 12/17/2014 [facility] LAPS SURG CHOLECYSTECTOMY W/CHOLANGIOGRAPHY 05/15/2008 PARATHYROID ALLERGIES Lyrica [Pregabalin], Accupril [Quinapril Hcl], Actos [Pioglitazone], Amlodipine, Atenolol, Atorvastatin, Celebrex [Celecoxib], Effexor [Venlafaxine Hcl], Januvia [Sitagliptin], Metoprolol, Mobic [Meloxicam], Prozac [Fluoxetine Hcl], Remeron [Mirtazapine], Risperidone, Seroquel [Quetiapine Fumarate], Trulicity [Dulaglutide], Vancomycin, Vioxx [Rofecoxib], and Wellbutrin [Bupropion Hcl] MEDICATIONS Current Outpatient Medications Medication Sig topiramate (TOPAMAX) 25 mg tablet Take 1 tablet by mouth two times a day. tiZANidine (ZANAFLEX) 4 mg tablet Take 1 tablet by mouth every 8 hours as needed (muscle spasms). Blood-Glucose Meter,Continuous (DEXCOM G7 ADVANCED REGISTERED NURSE) [facility] [place] to check blood sugar at least four (4) times daily. Blood-Glucose Sensor (DEXCOM G7 SENSOR) jessica Apply new sensor every ten (10) days. hydrOXYzine pamoate (VISTARIL) 25 mg capsule Take 1 capsule by mouth three times a day as needed. ARIPiprazole (ABILIFY) 10 mg tablet Take 1 tablet by mouth once daily. potassium chloride SR (MICRO-K) 8 mEq cpER Take 1 capsule by mouth daily with breakfast. Blood-Glucose Transmitter (DEXCOM G6 TRANSMITTER) jessica Apply new transmitter every 90 days. Clean transmitter with an alcohol swab with each sensor change. pravastatin (PRAVACHOL) 20 mg tablet Take 1 tablet by mouth daily at bedtime. furosemide (LASIX) 80 mg tablet Take 1 tablet by mouth once daily. famotidine (PEPCID) 40 mg tablet Take 1 tablet by mouth once daily. Cholecalciferol, Vitamin D3, 125 mcg (5,000 unit) cap Take 1 capsule by mouth once daily. ksnjarva-mkhr-rmt3-C-goi-bosw (OSTEO BI-FLEX TRIPLE STRENGTH) 750 mg-644 mg- 30 mg-1 mg tab Take 1 tablet by mouth two times a day. DULoxetine (CYMBALTA) 60 mg capsule Take 1 capsule by mouth once daily. insulin glargine (LANTUS SOLOSTAR U-100 INSULIN) 100 unit/mL (3 mL) Inject 30 Units subcutaneously every morning. traZODone (DESYREL) 100 mg tablet Take 1 tablet by mouth daily at bedtime. ibuprofen (MOTRIN) 800 mg tablet Take 1 tablet by mouth every 8 hours as needed for pain. Take with food. rOPINIRole (REQUIP) 0.25 mg tablet Take 1 tablet by mouth daily at bedtime. acetaminophen (ARTHRITIS PAIN RELIEF) 650 mg CR tablet Take 2 tablets by mouth every 8 hours as needed for pain. Not in same 8h period as [place] (hydrocodone Tylenol) blood sugar diagnostic (BLOOD GLUCOSE TEST) test strip Test blood sugars up to 4 times daily as directed. Dx: Type 2 DM - Controlled E11.9 Insulin: Yes. Insulin Maljamar, Disposable, (BD ULTRA-FINE MADI PEN NEEDLE) 32 gauge x /32 Use one needle for each dose. 2/day. Lancets Test blood sugar(s) up to 4 times daily. Dx: Type 2 DM - Controlled E11.9 Insulin: Yes Blood-Glucose Meter monitoring kit Glucose Meter of Choice - Kit - Dx: Type 2 DM - Controlled E11.9 Disposable Gloves (DISPOSABLE LATEX-FREE GLOVES) [facility] [place] Box once every month. Adhesive Bandage ([place] DRESSING) 6 X 6 bndg Apply to affected area once daily. Miscellaneous Medical Supply Collagen dressing 2x2 Blood-Glucose Meter monitoring kit Glucose Meter of Choice - Kit - Dx: Type 2 DM - Controlled E11.9 Use twice daily as directed ascorbic acid (VITAMIN C ORAL) Take 1 tablet by mouth once daily. spironolactone (ALDACTONE) 25 mg tablet Take 1 tablet by mouth once daily. HYDROcodone-acetaminophen (NORCO) 5-325 mg per tablet Take 1 tablet by mouth two times a day as needed for pain for up to 30 days. gabapentin (NEURONTIN) 600 mg tablet Take 1 tablet by mouth three times a day for 180 days. No current facility-administered medications for this visit. FAMILY HISTORY Problem Relation Age of Onset Hypertension Mother Heart Mother concha stroke Diabetes Mother Stroke Mother Massive- Arthritis Mother Osteoarthritis Hypertension Father COPD Father Hypertension Sister Arthritis Sister Hypertension Sister Diabetes Sister Arthritis Sister Hypertension Sister Diabetes Sister Arthritis Sister Hypertension Sister Diabetes Sister other (Rheumatoid Arthritis) Sister Heart Brother Triple Bypass Heart Brother Heart Brother Heart Maternal Aunt Heart Maternal Uncle Social History Tobacco Use Smoking status: Former Current packs/day: 0.00 Average packs/day: 1 pack/day for 15.0 years (15.0 ttl pk-yrs) Types: Cigarettes Start date: 12/21/1979 Quit date: 12/20/1994 Years since quittin.4 Smokeless tobacco: Never Vaping Use Vaping status: Never Used Substance Use Topics Alcohol use: No Drug use: No EXAM: BP 130/72 Pulse 73 Temp 36.4 C (97.6 F) LMP 12/11/2008 SpO2 95% PHYSICAL EXAM: Physical Exam Vitals reviewed. Constitutional: Appearance: She is obese. HENT: Head: Normocephalic. Musculoskeletal: Comments: Presents in motorized wheelchair. Limited mobility. Wide spread joint pain and muscle aces. Knee xrays advanced OA- too heavy for joint replacement Skin: General: Skin is warm and dry. Neurological: Mental Status: She is alert and oriented to person, place, and time. Psychiatric: Mood and Affect: Mood normal. Behavior: Behavior normal. LABS: check inflammatory markers ASSESSMENT/PLAN: 1. DDD (degenerative disc disease), cervical - ICD9: 722.4, ICD10: M50.30 Ongoing - HYDROCODONE 5 MG-ACETAMINOPHEN 325 MG TABLET 2. Lumbar facet arthropathy - ICD9: 721.3, ICD10: M47.816 Ongoing - HYDROCODONE 5 MG-ACETAMINOPHEN 325 MG TABLET 3. Diffuse myofascial pain syndrome - ICD9: 729.1, ICD10: M79.18 Ongoing- consider pain consult - HYDROCODONE 5 MG-ACETAMINOPHEN 325 MG TABLET 4. Pain disorder with psychological factors - ICD9: 307.80, ICD10: F45.42 Ongoing- exacerbation - HYDROCODONE 5 MG-ACETAMINOPHEN 325 MG TABLET renewed - Stop duloxetine - Stop topiramate - Stop trazodone - Start amitriptyline 50 mg at bedtime - Follow up in 3 weeks to advance amitriptyline 5. DDD (degenerative disc disease), lumbar - ICD9: 722.52, ICD10: M51.369 Ongoing - HYDROCODONE 5 MG-ACETAMINOPHEN 325 MG TABLET Discussed treatment plan and patient voices understanding. Patient's questions answered appropriately. Medications and potential side effects were discussed and patient voices understanding. Return to the office as scheduled or as needed for worsening/no improvement. Joi Markham APRN.CNP documented in this encounter [facility] 05-30-2024 Miscellaneous Notes Spoke with wilton, she is scheduled on Sunday for an appointment. Will do urine then. Louie Wade MA May 30, 2024 9:30 AM Topiramate was renewed but [place] cannot be renewed until tox screen is completed. That is a rule by [facility]. An order has been placed. This has to be done at the clinic. The patient has been identified by name and date of : Yes Caregiver verified no other encounters exist for this prescription request: Yes Caregiver confirmed with patient/requestor that no other refills are due, in the near future, with this provider at this time: Yes The last office visit in the department: 04/29/2024 Does the patient have a future office visit with this provider/department: Yes 09/11/2024 Requested Prescriptions Pending Prescriptions Disp Refills topiramate (TOPAMAX) 25 mg tablet 60 tablet 5 Sig: Take 1 tablet by mouth two times a day. HYDROcodone-acetaminophen (NORCO) 5-325 mg per tablet 60 tablet 0 Sig: Take 1 tablet by mouth two times a day as needed for pain for up to 30 days. Micaela Reis LPN May 29, 2024 11:21 AM documented in this encounter [facility] 05-30-2024 Telephone encounter Note Spoke with wilton, she is scheduled on Sunday for an appointment. Will do urine then. Louie Wade MA May 30, 2024 9:30 AM [facility] 05-29-2024 Telephone encounter Note Topiramate was renewed but [place] cannot be renewed until tox screen is completed. That is a rule by [facility]. An order has been placed. This has to be done at the clinic. [facility] 05-29-2024 Telephone encounter Note The patient has been identified by name and date of : Yes Caregiver verified no other encounters exist for this prescription request: Yes Caregiver confirmed with patient/requestor that no other refills are due, in the near future, with this provider at this time: Yes The last office visit in the department: 04/29/2024 Does the patient have a future office visit with this provider/department: Yes 09/11/2024 Requested Prescriptions Pending Prescriptions Disp Refills topiramate (TOPAMAX) 25 mg tablet 60 tablet 5 Sig: Take 1 tablet by mouth two times a day. HYDROcodone-acetaminophen (NORCO) 5-325 mg per tablet 60 tablet 0 Sig: Take 1 tablet by mouth two times a day as needed for pain for up to 30 days. Micaela Reis LPN May 29, 2024 11:21 AM [facility] 05-12-2024 Telephone encounter Note The following approved medication requests have been transmitted electronically. Requested Prescriptions Pending Prescriptions Disp Refills tiZANidine (ZANAFLEX) 4 mg tablet 90 tablet 2 Sig: Take 1 tablet by mouth every 8 hours as needed (muscle spasms). Joi Markham APRN.CNP [facility] 05-12-2024 Miscellaneous Notes The following approved medication requests have been transmitted electronically. Requested Prescriptions Pending Prescriptions Disp Refills tiZANidine (ZANAFLEX) 4 mg tablet 90 tablet 2 Sig: Take 1 tablet by mouth every 8 hours as needed (muscle spasms). Joi Markham APRN.CNP The patient has been identified by name and date of : Yes Caregiver verified no other encounters exist for this prescription request: Yes Caregiver confirmed with patient/requestor that no other refills are due, in the near future, with this provider at this time: Yes The last office visit in the department: 04/29/2024 Does the patient have a future office visit with this provider/department: Yes 09/11/2024 Requested Prescriptions Pending Prescriptions Disp Refills tiZANidine (ZANAFLEX) 4 mg tablet 90 tablet 0 Sig: Take 1 tablet by mouth every 8 hours as needed (muscle spasms). Micaela Reis LPN May 12, 2024 4:49 PM documented in this encounter [facility] 05-12-2024 Telephone encounter Note The patient has been identified by name and date of : Yes Caregiver verified no other encounters exist for this prescription request: Yes Caregiver confirmed with patient/requestor that no other refills are due, in the near future, with this provider at this time: Yes The last office visit in the department: 04/29/2024 Does the patient have a future office visit with this provider/department: Yes 09/11/2024 Requested Prescriptions Pending Prescriptions Disp Refills tiZANidine (ZANAFLEX) 4 mg tablet 90 tablet 0 Sig: Take 1 tablet by mouth every 8 hours as needed (muscle spasms). Micaela Reis LPN May 12, 2024 4:49 PM [facility] 04-29-2024 Note HNO ID: [id number] Author: ANTONIO GHOSH PA-C Service: ? Author Type: Physician Online Merchandising Manager Type: Progress Notes Filed: 04/29/2024 13:44 Note Text: 04/29/2024 Patient presents with: ER F/U: [facility] 04/25/24 chest pain; unknown cause SUBJECTIVE: This is a 64 year old that is here today for ER Follow Up. Patient was seen at [facility] ED on Sunday for chest pain, only while up and moving around. Described as sharp. Cardiac with ECG and labs, serial troponin was negative. Tells me chest pain has completely resolved, no SOB. She is having a returning ARAIZA and maxillary sinus pain and pressure. Now having green, purulent drainage. Recently treated for a sinus infection 2 weeks ago with a 7 day course of doxycycline. Symptoms started to improve on the antibiotic, and now returning. Denies worst ARAIZA of life. Denies calf pain. PAST MEDICAL HISTORY Diagnosis Date Abnormal glandular Papanicolaou smear of cervix 05/30/05 ABNL GLANDULAR PAP SMEAR CERVIX Acute gastritis without mention of hemorrhage Anxiety state, unspecified Arrhythmia Chronic cholecystitis Chronic obstructive pulmonary disease (COPD) ([facility]) Congestive heart failure ([facility]) 10/03/2011 Diabetes ([facility]) diabetes II 2010 Diaphragmatic hernia without mention of obstruction or gangrene Dysthymic disorder Depression (non-psychotic) Esophageal reflux Essential hypertension, benign Generalized OA Hyperprolactinemia ([facility]) 10/13/2005 Localized osteoarthrosis not specified whether primary or secondary, lower leg Major depressive disorder, recurrent episode Mucous polyp of cervix 07/19/05 Other and unspecified anterior pituitary hyperfunction ([facility]) 10/13/05 elevated prolactin level-was normal in 2011 PMH - PAST MEDICAL HISTORY OF sleep apnea PM - PAST MEDICAL HISTORY OF sleep apnea SVT (supraventricular tachycardia) ([facility]) 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 Type 2 diabetes mellitus without complication, with long-term current use of insulin ([facility]) 12/22/2013 ALLERGIES Lyrica [Pregabalin], Accupril [Quinapril Hcl], Actos [Pioglitazone], Amlodipine, Atenolol, Atorvastatin, Celebrex [Celecoxib], Effexor [Venlafaxine Hcl], Januvia [Sitagliptin], Metoprolol, Mobic [Meloxicam], Prozac [Fluoxetine Hcl], Remeron [Mirtazapine], Risperidone, Seroquel [Quetiapine Fumarate], Trulicity [Dulaglutide], Vancomycin, Vioxx [Rofecoxib], and Wellbutrin [Bupropion Hcl] MEDICATIONS Current Outpatient Medications Medication Sig Blood-Glucose Meter,Continuous (DEXCOM G7 ADVANCED REGISTERED NURSE) misc Use to check blood sugar at least four (4) times daily. Blood-Glucose Sensor (DEXCOM G7 SENSOR) jessica Apply new sensor every ten (10) days. hydrOXYzine pamoate (VISTARIL) 25 mg capsule Take 1 capsule by mouth three times a day as needed. ARIPiprazole (ABILIFY) 10 mg tablet Take 1 tablet by mouth once daily. spironolactone (ALDACTONE) 25 mg tablet Take 1 tablet by mouth once daily. tiZANidine (ZANAFLEX) 4 mg tablet Take 1 tablet by mouth every 8 hours as needed (muscle spasms). potassium chloride SR (MICRO-K) 8 mEq cpER Take 1 capsule by mouth daily with breakfast. Blood-Glucose Transmitter (DEXCOM G6 TRANSMITTER) jessica Apply new transmitter every 90 days. Clean transmitter with an alcohol swab with each sensor change. pravastatin (PRAVACHOL) 20 mg tablet Take 1 tablet by mouth daily at bedtime. furosemide (LASIX) 80 mg tablet Take 1 tablet by mouth once daily. famotidine (PEPCID) 40 mg tablet Take 1 tablet by mouth once daily. Cholecalciferol, Vitamin D3, 125 mcg (5,000 unit) cap Take 1 capsule by mouth once daily. mbfbycir-jydy-onp9-C-gio-bosw (OSTEO BI-FLEX TRIPLE STRENGTH) 750 mg-644 mg- 30 mg-1 mg tab Take 1 tablet by mouth two times a day. DULoxetine (CYMBALTA) 60 mg capsule Take 1 capsule by mouth once daily. topiramate (TOPAMAX) 25 mg tablet Take 1 tablet by mouth two times a day. insulin glargine (LANTUS SOLOSTAR U-100 INSULIN) 100 unit/mL (3 mL) Inject 30 Units subcutaneously every morning. traZODone (DESYREL) 100 mg tablet Take 1 tablet by mouth daily at bedtime. ibuprofen (MOTRIN) 800 mg tablet Take 1 tablet by mouth every 8 hours as needed for pain. Take with food. rOPINIRole (REQUIP) 0.25 mg tablet Take 1 tablet by mouth daily at bedtime. acetaminophen (ARTHRITIS PAIN RELIEF) 650 mg CR tablet Take 2 tablets by mouth every 8 hours as needed for pain. Not in same 8h period as [place] (hydrocodone Tylenol) blood sugar diagnostic (BLOOD GLUCOSE TEST) test strip Test blood sugars up to 4 times daily as directed. Dx: Type 2 DM - Controlled E11.9 Insulin: Yes. Insulin Maljamar, Disposable, (BD ULTRA-FINE MADI PEN NEEDLE) 32 gauge x 32 Use one needle for each dose. 2/day. Lancets Test blood sugar(s) up to 4 times daily. Dx: Type 2 DM - Controlled E11.9 Insulin: Yes Blood-Glucose Meter monitoring kit Glucose Meter of Choice - Kit - Dx: Type 2 DM - Controlled E11.9 Disposable Gloves (DISPOSABLE LATEX-FREE GLOVES) [facility] Box o (more content not included)... [facility] 04-29-2024 History of Present illness Narrative 04/29/2024 Patient presents with: ER F/U: [facility] 04/25/24 chest pain; unknown cause SUBJECTIVE: This is a 64 year old that is here today for ER Follow Up. Patient was seen at [facility] ED on Sunday for chest pain, only while up and moving around. Described as sharp. Cardiac with ECG and labs, serial troponin was negative. Tells me chest pain has completely resolved, no SOB. She is having a returning ARAIZA and maxillary sinus pain and pressure. Now having green, purulent drainage. Recently treated for a sinus infection 2 weeks ago with a 7 day course of doxycycline. Symptoms started to improve on the antibiotic, and now returning. Denies worst ARAIZA of life. Denies calf pain. PAST MEDICAL HISTORY Diagnosis Date Abnormal glandular Papanicolaou smear of cervix 05/30/05 ABNL GLANDULAR PAP SMEAR CERVIX Acute gastritis without mention of hemorrhage Anxiety state, unspecified Arrhythmia Chronic cholecystitis Chronic obstructive pulmonary disease (COPD) ([facility]) Congestive heart failure ([facility]) 10/03/2011 Diabetes ([facility]) diabetes II 2010 Diaphragmatic hernia without mention of obstruction or gangrene Dysthymic disorder Depression (non-psychotic) Esophageal reflux Essential hypertension, benign Generalized OA Hyperprolactinemia ([facility]) 10/13/2005 Localized osteoarthrosis not specified whether primary or secondary, lower leg Major depressive disorder, recurrent episode Mucous polyp of cervix 07/19/05 Other and unspecified anterior pituitary hyperfunction ([facility]) 10/13/05 elevated prolactin level-was normal in 2011 PMH - PAST MEDICAL HISTORY OF sleep apnea PMH - PAST MEDICAL HISTORY OF sleep apnea SVT (supraventricular tachycardia) ([facility]) 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 Type 2 diabetes mellitus without complication, with long-term current use of insulin ([facility]) 12/22/2013 ALLERGIES Lyrica [Pregabalin], Accupril [Quinapril Hcl], Actos [Pioglitazone], Amlodipine, Atenolol, Atorvastatin, Celebrex [Celecoxib], Effexor [Venlafaxine Hcl], Januvia [Sitagliptin], Metoprolol, Mobic [Meloxicam], Prozac [Fluoxetine Hcl], Remeron [Mirtazapine], Risperidone, Seroquel [Quetiapine Fumarate], Trulicity [Dulaglutide], Vancomycin, Vioxx [Rofecoxib], and Wellbutrin [Bupropion Hcl] MEDICATIONS Current Outpatient Medications Medication Sig Blood-Glucose Meter,Continuous (DEXCOM G7 ADVANCED REGISTERED NURSE) misc Use to check blood sugar at least four (4) times daily. Blood-Glucose Sensor (DEXCOM G7 SENSOR) jessica Apply new sensor every ten (10) days. hydrOXYzine pamoate (VISTARIL) 25 mg capsule Take 1 capsule by mouth three times a day as needed. ARIPiprazole (ABILIFY) 10 mg tablet Take 1 tablet by mouth once daily. spironolactone (ALDACTONE) 25 mg tablet Take 1 tablet by mouth once daily. tiZANidine (ZANAFLEX) 4 mg tablet Take 1 tablet by mouth every 8 hours as needed (muscle spasms). potassium chloride SR (MICRO-K) 8 mEq cpER Take 1 capsule by mouth daily with breakfast. Blood-Glucose Transmitter (DEXCOM G6 TRANSMITTER) jessica Apply new transmitter every 90 days. Clean transmitter with an alcohol swab with each sensor change. pravastatin (PRAVACHOL) 20 mg tablet Take 1 tablet by mouth daily at bedtime. furosemide (LASIX) 80 mg tablet Take 1 tablet by mouth once daily. famotidine (PEPCID) 40 mg tablet Take 1 tablet by mouth once daily. Cholecalciferol, Vitamin D3, 125 mcg (5,000 unit) cap Take 1 capsule by mouth once daily. qpaabsgj-niud-zwu8-C-gio-bosw (OSTEO BI-FLEX TRIPLE STRENGTH) 750 mg-644 mg- 30 mg-1 mg tab Take 1 tablet by mouth two times a day. DULoxetine (CYMBALTA) 60 mg capsule Take 1 capsule by mouth once daily. topiramate (TOPAMAX) 25 mg tablet Take 1 tablet by mouth two times a day. insulin glargine (LANTUS SOLOSTAR U-100 INSULIN) 100 unit/mL (3 mL) Inject 30 Units subcutaneously every morning. traZODone (DESYREL) 100 mg tablet Take 1 tablet by mouth daily at bedtime. ibuprofen (MOTRIN) 800 mg tablet Take 1 tablet by mouth every 8 hours as needed for pain. Take with food. rOPINIRole (REQUIP) 0.25 mg tablet Take 1 tablet by mouth daily at bedtime. acetaminophen (ARTHRITIS PAIN RELIEF) 650 mg CR tablet Take 2 tablets by mouth every 8 hours as needed for pain. Not in same 8h period as [place] (hydrocodone Tylenol) blood sugar diagnostic (BLOOD GLUCOSE TEST) test strip Test blood sugars up to 4 times daily as directed. Dx: Type 2 DM - Controlled E11.9 Insulin: Yes. Insulin Maljamar, Disposable, (BD ULTRA-FINE MADI PEN NEEDLE) 32 gauge x 5/32 Use one needle for each dose. 2/day. Lancets Test blood sugar(s) up to 4 times daily. Dx: Type 2 DM - Controlled E11.9 Insulin: Yes Blood-Glucose Meter monitoring kit Glucose Meter of Choice - Kit - Dx: Type 2 DM - Controlled E11.9 Disposable Gloves (DISPOSABLE LATEX-FREE GLOVES) mis 1 Box once every month. Adhesive Bandage ([place] [employer]) 6 X 6 bndg Apply to affected area once daily. Miscellaneous Medical Supply Collagen dressing 2x2 Blood-Glucose Meter monitoring kit Glucose Meter of Choice - Kit - Dx: Type 2 DM - Controlled E11.9 Use twice daily as directed ascorbic acid (VITAMIN C ORAL) Take 1 tablet by mouth once daily. HYDROcodone-acetaminophen (NORCO) 5-325 mg per tablet Take 1 tablet by mouth two times a day as needed for pain for up to 30 days. gabapentin (NEURONTIN) 600 mg tablet Take 1 tablet by mouth three times a day for 180 days. No current facility-administered medications for this visit. SOCIAL HISTORY Social History Tobacco Use Smoking status: Former Current packs/day: 0.00 Average packs/day: 1 pack/day for 15.0 years (15.0 ttl pk-yrs) Types: Cigarettes Start date: 12/21/1979 Quit date: 12/20/1994 Years since quittin.3 Smokeless tobacco: Never Vaping Use Vaping status: Never Used Substance Use Topics Alcohol use: No Drug use: No REVIEW OF SYSTEMS See HPI OBJECTIVE: BP 116/73 Pulse 75 Resp 16 LMP 12/11/2008 SpO2 95% APPEARANCE Well appearing, sitting in her motorized chair, alert, in no acute distress, well-hydrated, well nourished. EYES PERRLA, conjunctiva and sclera normal. EARS External ears normal, canals clear. TMs normal ISABEL NOSE/SINUS Nares normal. Septum midline. Mucosa normal. No drainage or sinus tenderness. THROAT normal, no erythema NECK Supple, no adenopathy; HEART RRR with normal S1 and S2 LUNG clear to auscultation, No wheezing, rhonchi, rales. ASSESSMENT/PLAN: 1. Acute maxillary sinusitis, recurrence not specified - ICD9: 461.0, ICD10: J01.00 - Will begin treatment with Augmentin 875 mg PO BID for 5 days - AMOXICILLIN 875 MG-POTASSIUM CLAVULANATE 125 MG TABLET Advise close f/u in 7 days if not improving, sooner if worsening. Consider ENT consult if not resolving with this course of antibiotics. 2. Chest pain Completely resolved, normal cardiac work up in ED Reviewed red flags and when to seek care sooner in ED The patient indicates understanding of these issues and agrees with the plan. Antonio Ghosh PA-C documented in this encounter [facility] 04-25-2024 Discharge summary [facility] 04-25-2024 Discharge summary Note Date/Time April 25, 2024 4:04pm [facility] Medical Records Department [address] [place] [address] Emergency Department Summary 04/25/24 MR#: [id number] Acct: [id number] Name: WILTON KHAN V Rep #:[id number] : 1960 64 From: Zain Brito PCP: Joi Markham, WH[employer]ER Status:REG ER Location: ED HPI History of Present Illness Chief Complaint: Chest Pain Informant: patient and EMS Narrative Narrative: 64-year-old female presenting to the emergency room with a chief complaint of chest pain. Patient states that on Sunday she began to experience a left pressure with sharpness when she got up and moved around. She states a long as she is at rest she feels fine. This is been persistent until this morning when she then felt it into her throat and her back. She denies any nausea vomiting she denies any cough shortness of breath. She states she has had prior heart catheter been negative. She does have a history of COPD diabetes obesity hypertension obstructive sleep apnea. [facility] Medical History COVID-19 Vitamin D deficiency Hyperparathyroidism Immobility Peripheral neuropathy Mixed hyperlipidemia COPD (chronic obstructive pulmonary disease) History of DVT (deep vein thrombosis) SVT (supraventricular tachycardia) Essential hypertension JEREMÍAS treated with BiPAP Pulmonary hypertension Exertional dyspnea Chronic back pain Diabetes mellitus, type II Heart failure Anxiety and depression Sepsis Lumbosacral neuritis Esophageal reflux Morbid obesity Home Medications ?Medication ?Instructions ?Recorded ?Last Taken ?Type duloxetine 60 mg capsule,delayed 60 mg PO DAILY depres kyler 12/02/14 03/02/22 History release aripiprazole 10 mg tablet 10 mg PO QHS Depression 09/0 04/0803/01/22 History pravastatin 20 mg tablet 20 mg PO QHS cholesterol 03/01/22 History famotidine 40 mg tablet 40 mg PO DAILY stomach 11/0703/02/22 History insulin glargine 100 unit/mL (3 35 unit SQ DAILY blood sugar 11/08/19 03/02/22 History mL) subcutaneous pen hydrocodone-acetaminophen 5-325mg 1 tab PO BID PRN Elena n 06/29/20 03/01/22 History 5mg-325mg potassium chloride 10 mEq 10 meq PO DAILY supplement 0 06/29/20 03/02/22 History capsule,extended release acetaminophen 650 mg 650 mg PO TID PRN Pain 09/1403/02/22 History tablet,extended release spironolactone 50 mg tablet 25 mg PO DAILY fluid 09/1403/02/22 History trazodone 100 mg tablet 100 mg PO QHS SLEEP 09/14/20 03/01/22 History cholecalciferol (vitamin D3) 125 125 mcg PO DAILY 02/1903/02/22 History mcg (5,000 unit) tablet (Vitamin D3) furosemide 80 mg tablet 80 mg PO DAILY FLUID 3 03/02/22 History gabapentin 300 mg capsule 300 mg PO Q12H PAIN 03/02/22 03/01/22 History ibuprofen 200 mg tablet 800 mg PO Q8H PRN Fever 02/1903/02/22 07:45 History albuterol sulfate 90 mcg/actuation 2 inh inhalation Q4 H PRN shortness 05/17/23 Unknown History aerosol inhaler of breath or wheezing ascorbic acid (vitamin C) 1,500 mg 1,500 mg PO DAILY 0 05/17/23 Unknown History tablet,extended release glucosamine 750 [id number] 1 tab PO BID Unknown History no1 644 mg-C 30 mg-gio 1 mg tablet (Osteo Bi-Flex Triple Strength) hydroxyzine pamoate 25 mg capsule 25 mg PO Q8H PRN anx iety 05/17/23 Unknown History potassium chloride 8 mEq 8 meq PO DAILY 05/17/23 Unkn own History capsule,extended release ropinirole 0.25 mg tablet 0.25 mg PO QHS 05/17/23 Unkn own History tizanidine 4 mg capsule 4 mg PO TID PRN muscle spast icity 05/17/23 Unknown History Allergy/AdvReac Type Severity Reaction Status Date / Time vancomycin Allergy Rash Verified 04/25/24 09:31 atorvastatin AdvReac Severe myalgias Verified 04/25/24 09:31 amlodipine AdvReac Unknown Verified 04/25/24 09:31 atenolol AdvReac Unknown Verified 04/25/24 09:31 bupropion HCl (From AdvReac Unknown Verified 04/25/24 09:31 Wellbutrin) fluoxetine HCl (From Prozac) AdvReac Unknown Verified 04/25/24 09:31 meloxicam (From Mobic) AdvReac Unknown Verified 04/25/24 09:31 metoprolol AdvReac Unknown Verified 04/25/24 09:31 pregabalin (From Lyrica) AdvReac Unknown Verified 04/25/24 09:31 quetiapine fumarate (From AdvReac Unknown Verified 04/25/24 09:31 Seroquel) quinapril HCl (From Accupril) AdvReac Unknown Verified 04/25/24 09:31 risperidone AdvReac Unknown Verified 04/25/24 09:31 rofecoxib (From Vioxx) AdvReac Unknown Verified 04/25/24 09:31 sitagliptin phosphate (From AdvReac Unknown Verified 04/25/24 09:31 Januvia) venlafaxine HCl (From AdvReac Unknown Verified 04/25/24 09:31 Effexor) Family History Mother Hypertension CVA (cerebral vascular accident) Diabetes Heart disease Father Hypertension COPD (chronic obstructive pulmonary disease) Sister Hypertension Sister Hypertension Diabetes Brother Hypertension Diabetes Brother Hypertension Diabetes Brother Hypertension CAD (coronary artery disease) History of coronary artery bypass surgery, Onset Age: 48 Diabetes Surgical History History of laparoscopic cholecystectomy History of hernia repair History of left heart catheterization (LHC) (~05/23/12) Social History household members: none Smoking Status: Former smoker alcohol intake: never substance use type: does not use ROS ROS ED Constitutional Constitutional ED: Denies chills or weight loss Eyes Eyes: Denies change in vision or diplopia ENT ENT ED: Denies ear pain, rhinorrhea or sore throat Cardiovascular Cardiovascular: Reports chest pain and other Details: See history of present illness ; Denies orthopnea, palpitations or racing heartbeat Respiratory/Chest Respiratory/Chest: Denies cough, dyspnea or orthopnea Gastrointestinal Gastrointestinal: Denies abdominal pain, diarrhea, nausea or vomiting Genitourinary Genitourinary ED: Denies dysuria, hematuria or urinary frequency Musculoskeletal Musculoskeletal: Denies arthralgias or myalgias Integumentary Denies abscess or rash Neurologic Neurologic: Denies headache(s) or weakness Psychiatric Psychiatric: Denies anxiety, depression, suicidal ideation or suicidal thoughts Endocrine Endocrinology: Denies polydipsia, polyphagia or polyuria Allergic/Immunologic Allergic/Immunologic ED: Denies mouth swelling, tongue swelling or urticaria EXAM Physical Exam Const Vital Signs: 04/25/24 09:26 04/25/24 10:23 04/25/24 11:00 Temperature 97.6 F L Temperature Source Temporal Pulse Rate 70 69 68 Respiratory Rate 16 20 H 18 Blood Pressure 154/81 H 122/73 H 122/70 H Blood Pressure Mean 105 89 87 Pulse Ox 96 96 95 Oxygen Delivery Method Room Air 04/25/24 12:00 04/25/24 13:00 04/25/24 14:00 Temperature Temperature Source Pulse Rate 68 67 77 Respiratory Rate 18 18 20 H Blood Pressure 171/76 H 130/61 H 126/65 H Blood Pressure Mean 107 84 85 Pulse Ox 95 95 98 Oxygen Delivery Method Room Air 04/25/24 14:43 Temperature 98 F Temperature Source Pulse Rate 78 Respiratory Rate 15 Blood Pressure 126/65 H Blood Pressure Mean 85 Pulse Ox 99 Oxygen Delivery Method Positive well nourished, well developed and obese General Appearance ED: well developed and NAD Nutritional Appearance: obese HEENT Reports normocephalic, head/scalp atraumatic and moist mucous membranes Eyes PERRL and EOMs intact bilaterally Neck no lymphadenopathy, supple and no JVD Resp normal respiratory effort and clear to auscultation bilaterally Cardio regular rate, regular rhythm and no murmurs GI normal to inspection, nondistended, normoactive bowel sounds and non-tender Palpation: soft Back/Spine no CVA tenderness and normal ROM Extremity normal to inspection General Extremety ED: Negative for edema General Extremity: Negative for edema Neuro oriented x3 and CN's II-XII intact bilaterally Sensorium / Orientation: alert Motor Exam: strength 5/5 throughout Psych mental status grossly normal Mood & Affect: Negative for depressed or tearful Skin no rashes or lesions noted and no wounds MDM MDM MDM Narrative Medical decision making narrative: Differential diagnosis includes but not limited to acute coronary syndrome pericarditis pulmonary embolism aortic dissection pleurisy costochondritis GERD Patient's symptoms are only when she gets up and moves. When she is at rest sheis asymptomatic and I doubt that this is pulmonary embolism or dissection. 2 sets of cardiac enzymes are normal at 13 and her EKG is nonischemic. Glucose is176. My independent interpretation of the chest x-ray is no acute process. Sheis observed on the monitor and has had no cardiac dysrhythmias. Clinically I think the patient can be discharged home. She needs to take an ambulance to [place]. I do not feel strongly that she needs to be admitted. I cannot explain why she is having the symptoms. History & Record Review Discussion w/independent historian: Patient Lab Data Attestation: I reviewed the patient's lab results. Labs: Laboratory Results - last 24 hr 04/25/24 04/25/24 10:11 13:06 WBC 5.4 RBC 3.98 L Hgb 12.0 Hct 35.2 L MCV 88.4 MCH 30.2 MCHC 34.1 RDW Std Deviation 40.4 RDW Coeff of Kaity 12.7 Plt Count 212 MPV 10.0 Immature Gran % (Auto) 0.200 Neut % (Auto) 65.6 Lymph % (Auto) 24.7 [place] % (Auto) 6.7 Eos % (Auto) 2.6 Baso % (Auto) 0.2 Absolute Neuts (auto) 3.5 Absolute Lymphs (auto) 1.33 Nucleated RBC % 0 Sodium 141 Potassium 4.0 Chloride 100 Carbon Dioxide 29.6 Anion Gap 11 BUN 28 H Creatinine 0.98 Est GFR (MDRD) Non-Af 65 BUN/Creatinine Ratio 28.2 H Glucose 176 H Calcium 9.0 Troponin T High Sens 13 Troponin T Hi Sens 2 Hr 13 Radiography Diagnostic Testing: Clinical Impression(s) from Imaging Studies Chest X-Ray 04/25/24 10:50 IMPRESSION: 1. No visible acute cardiopulmonary findings. 2. Additional description as above. Reading Location: [facility] EKG Initial EKG: Attestation: I personally reviewed and interpreted this EKG as follows: Comments: Normal sinus rhythm ventricular rate of 64 bpm Discharge Plan Triage Chief Complaint: Chest Pain ED Provider: Zain Andrade Dx/Rx/DC Orders Clinical Impression: Chest pain Instructions: ED Chest Pain, Uncertain Cause Prescriptions: No Action pravastatin 20 mg tablet 20 mg PO QHS duloxetine 60 MG capsule,delayed release(DR/EC) 60 mg PO DAILY aripiprazole 10 MG tablet 10 mg PO QHS famotidine 40 MG tablet 40 mg PO DAILY insulin glargine 100 UNIT/ML insulin pen 35 unit SQ DAILY potassium chloride 10 mEq Capsule, Extended Release 10 meq PO DAILY hydrocodone-acetaminophen 5-325 mg Tablet 1 tab PO BID PRN (Reason: Pain) acetaminophen 650 mg tablet extended release 650 mg PO TID PRN (Reason: Pain) Patient Comments: take 2 tablets by mouth three times a day if needed trazodone 100 mg tablet 100 mg PO QHS MDD insomnia Patient Comments: take 1 tablet by mouth every evening spironolactone 50 mg tablet 25 mg PO DAILY Patient Comments: take 1 tablet by mouth once daily cholecalciferol (vitamin D3) [Vitamin D3] 125 mcg (5,000 unit) Tablet 125 mcg PO DAILY ibuprofen 200 mg Tablet 800 mg PO Q8H PRN (Reason: Fever) gabapentin 300 mg capsule 300 mg PO Q12H furosemide 80 mg tablet 80 mg PO DAILY Patient Comments: take 1 tablet by mouth once daily hydroxyzine pamoate 25 mg capsule 25 mg PO Q8H PRN (Reason: anxiety) tizanidine 4 mg capsule 4 mg PO TID PRN (Reason: muscle spasticity) ropinirole 0.25 mg tablet 0.25 mg PO QHS Osteo Bi-Flex Triple Strength 750 mg-644 mg- 30 mg-1 mg tablet 1 tab PO BID potassium chloride 8 mEq capsule, extended release 8 meq PO DAILY albuterol sulfate 90 mcg/actuation HFA aerosol inhaler 2 inh inhalation Q4H PRN (Reason: shortness of breath or wheezing) ascorbic acid (vitamin C) 1,500 mg tablet extended release 1,500 mg PO DAILY Primary Care Provider: Joi Markham Referrals: Joi Markham CNS [Primary Care Provider] - Keep Johnny appointment Nehemiah Herbert MD [Non-Staff] - Print Language: Togolese Disposition Disposition: Home, Self Care What to do if you have Problems For any increased pain, shortness of breath, bleeding, nausea or vomiting, chestpain, or any unexpected problems, contact your Primary Care Provider. Call [facility] ([phone]) or report to the closest Emergency Room. Call 911 if necessary. 04/25/24 [id number] <Electronically signed by Zain Varnell DO> Cosigner Signature (if applicable): CC: ANA Markham ~ Signed [facility] Work Phone: [phone] 274-782303-07-2025 Radiology Diagnostic study note [facility] Imaging Services [address] [place] [address] Chest 1 View (Portable) MR#: [id number] Acct: [id number] Name: WILTON KHAN V Rep #: [id number] : 1960 F 64 From: Felicitas Johnson MD PCP: ANA Melvin Status: REG ER Study:Chest 1 View (Portable) Date of Exam: 04/25/24 Exam# [id number] Ordering Dr: Jeremy Andrade DO PROCEDURE: CHEST 1 VIEW (PORTABLE) REASON FOR EXAM: Chest pain TECHNIQUE: Single portable AP view of the chest was obtained. COMPARISON: 09/14/2020 FINDINGS: Heart: Unremarkable. Mediastinum: Unremarkable. Lungs/pleura: No focal consolidation. No sizeable pleural effusion or visible pneumothorax. Granuloma on the left. Bones: Degenerative changes of the shoulders. Lines and support devices: None. RAD/Chest 1 View (Portable) IMPRESSION: 1. No visible acute cardiopulmonary findings. 2. Additional description as above. Reading Location: [facility] CC: ANA Markham; Dr. Zain Andrade DO ~ Animation Director: Signed [facility]03-07-2025 Telephone encounter Note* Telephone Encounter - La Babb RN - 04/25/2024 10:09 AM EST Pt's sister Adela calling in to cancel pt's appt for next Sunday. Adela states pt had chest pain and is in the ER. [facility]03-07-2025 Miscellaneous Notes* Telephone Encounter - La Babb RN - 04/25/2024 10:09 AM EST Pt's sister Adela calling in to cancel pt's appt for next Sunday the . Adela states pt had chest pain and is in the ER. [facility] Telephone encounter Note * Telephone Encounter - Kim Carpenter MSW - 04/24/2024 1:04 PM EST Patient and Sw spoke regarding transportation. Patient reports that she spoke with her insurance and they need 2 days in advance to bring her to appt. Sw noted that she could check with [facility] Transportation. Not sure if they will be able to help with ride to appt with Shayan Davidson due to typically transporting to their [facility] sites and providers that have privileges through [facility]. The only other idea is [employer] as they have wheelchair vans. They typicallyalso need 2 days in advance as well. Patient reports that she is going to call [facility] transport to see what they say about helping with transportation to medical appt. [facility]03-06-2025 Miscellaneous Notes* Telephone Encounter - Kim Carpenter MSW - 04/24/2024 1:04 PM EST Patient and Sw spoke regarding transportation. Patient reports that she spoke with her insurance and they need 2 days in advance to bring her to appt. Sw noted that she could check with [facility] Transportation. Not sure if they will be able to help with ride to appt with Shayan Davidson due to typically transporting to their [facility] sites and providers that have privileges through [facility]. The only other idea is [employer] as they have wheelchair vans. They typicallyalso need 2 days in advance as well. Patient reports that she is going to call [facility] transport to see what they say about helping with transportation to medical appt. * Telephone Encounter - Sanjay Rondon RN - 04/24/2024 12:50 PM EST Pt phoned stating she has to cancel appt for tomorrow, and reschedule for next Tues, due to transportation. Reports she was unable to get transportation tomorrow due to company unable to find transport to accommodate her motorized wheel chair. Asking if pcp if you know of any other company's that provide transportation for people in a motorized wheel chair? States she has a lot of trouble getting transportation. Please advise patient. [facility] Telephone encounter Note * Telephone Encounter - Sanjay Rondon RN - 04/24/2024 12:50 PM EST Pt phoned stating she has to cancel appt for tomorrow, and reschedule for next Tues, due to transportation. Reports she was unable to get transportation tomorrow due to company unable to find transport to accommodate her motorized wheel chair. Asking if pcp if you know of any other company's that provide transportation for people in a motorized wheel chair? States she has a lot of trouble getting transportation. Please advise patient. [facility]03-06-2025 Telephone encounter Note* Telephone Encounter - La Babb RN - 04/24/2024 11:39 AM EST Pt calling in with symptoms of headache and dizzinesss. Pt with hx of sinus infection and treated on 04/14/24. Just finished antibiotic. Pt also states that Sunday and Sunday she had some episodesof sharp stabbing pains behind her left breast. Lasted around 2-3 mins. One maybe lasted about 10 mins. Denies any chest pain at all today and denies any difficulty breathing or SOB. Pt given strict instructions if the chest pain returns, she is to call 911 immediately. Pt verbalizes understanding.Otherwise protocols state to see provider within 24 hours. Appt given with Lety Markham for 1020 am tomorrow for 40 mins. Reason for Disposition [1] MODERATE dizziness (e.g., interferes with normal activities) AND [2] has NOT been evaluated by doctor (or MATERNITY NURSE/PA) for this (Exception: Dizziness caused by heat exposure, sudden standing, or poor fluid intake.) [1] MODERATE headache (e.g., interferes with normal activities) AND [2] present > 24 hours AND [3] unexplained (Exceptions: Pain medicines not tried, typical migraine, or headache part of viral illness.) [1] Chest pain lasts < 5 minutes AND [2] NO chest pain or cardiac symptoms (e.g., breathing difficulty, sweating) now (Exception: Chest pains that last only a few seconds.) Answer Assessment - Initial Assessment Questions 1. LOCATION: Forehead, bilateral temples and across her cheeks 2. ONSET: couple of weeks ago 3. PATTERN: constant 4. SEVERITY: moderate 5/10 with Tylenol may go to a 2-3/10 - MILD (1-3): Doesn't interfere with normal activities. - MODERATE (4-7): Interferes with normal activities or awakens from sleep. - SEVERE (8-10): Excruciating pain, unable to do any normal activities. - WORST HEADACHE (10+): 'Worst headache' of life. 5. RECURRENT SYMPTOM: denies 6. CAUSE: was dx with a sinus infection recently 7. MIGRAINE: denies 8. HEAD INJURY: denies 9. OTHER SYMPTOMS: denies fever, stiff neck, sore throat, cold symptoms, runny or stuffy nose or cough. Does have some dizziness and eye pain but denies visual disturbances. 10. :n/a Answer Assessment - Initial Assessment Questions 1. DESCRIPTION: dizziness 2. LIGHTHEADED: c/o feeling somewhat faint, woozy, and weak upon standing up 3. VERTIGO: denies 4. SEVERITY: moderate - MILD: Feels slightly dizzy, but walking normally. - MODERATE: Feels unsteady when walking, but not falling; interferes with normal activities (e.g., school, work). - SEVERE: Unable to walk without falling, or requires assistance to walk without falling; feels like passing out now. 5. ONSET: This past Sunday 6. AGGRAVATING FACTORS: standing or change in head/body position 7. HEART RATE: Pt states someone from [facility] was just there at her house and took BP which was 132/78 and pulse in the 60's 8. CAUSE: unsure unless from recent sinus infection 9. RECURRENT SYMPTOM: denies 10. OTHER SYMPTOMS: headache 11. : n/a Answer Assessment - Initial Assessment Questions 1. LOCATION: behind left breast Sunday and Sunday-denies today 2. RADIATION: denies 3. ONSET: see above 4. PATTERN: intermittent 5. DURATION: 10 mins was longest, couple mins here and there 6. SEVERITY: When she had it 06/28 - MILD (1-3): Doesn't interfere with normal activities. - MODERATE (4-7): Interferes with normal activities or awakens from sleep. - SEVERE (8-10): Excruciating pain, unable to do any normal activities. 7. CARDIAC RISK FACTORS: Pt with h/o diabetes, high blood pressure, high cholesterol, smoking history, and very strong family history of heart disease 8. PULMONARY RISK FACTORS: COPD 9. CAUSE: unsure 10. OTHER SYMPTOMS: headache and dizziness. Denies having any nausea, vomiting, sweating, fever, difficulty breathing, cough 11. : n/a Protocols used: Zbahlqlz-YFBTL-QM, Dizziness - Pkdissjjqvkxqmt-XRKME-AC, Chest Kpur-JHRMF-HV [facility]03-06-2025 Miscellaneous Notes* Telephone Encounter - La Babb RN - 04/24/2024 11:39 AM EST Pt calling in with symptoms of headache and dizzinesss. Pt with hx of sinus infection and treated on 04/14/24. Just finished antibiotic. Pt also states that Sunday and Sunday she had some episodesof sharp stabbing pains behind her left breast. Lasted around 2-3 mins. One maybe lasted about 10 mins. Denies any chest pain at all today and denies any difficulty breathing or SOB. Pt given strict instructions if the chest pain returns, she is to call 911 immediately. Pt verbalizes understanding.Otherwise protocols state to see provider within 24 hours. Appt given with Lety Markham for 1020 am tomorrow for 40 mins. Reason for Disposition [1] MODERATE dizziness (e.g., interferes with normal activities) AND [2] has NOT been evaluated by doctor (or MATERNITY NURSE/PA) for this (Exception: Dizziness caused by heat exposure, sudden standing, or poor fluid intake.) [1] MODERATE headache (e.g., interferes with normal activities) AND [2] present > 24 hours AND [3] unexplained (Exceptions: Pain medicines not tried, typical migraine, or headache part of viral illness.) [1] Chest pain lasts < 5 minutes AND [2] NO chest pain or cardiac symptoms (e.g., breathing difficulty, sweating) now (Exception: Chest pains that last only a few seconds.) Answer Assessment - Initial Assessment Questions 1. LOCATION: Forehead, bilateral temples and across her cheeks 2. ONSET: couple of weeks ago 3. PATTERN: constant 4. SEVERITY: moderate 5/10 with Tylenol may go to a 2-3/10 - MILD (1-3): Doesn't interfere with normal activities. - MODERATE (4-7): Interferes with normal activities or awakens from sleep. - SEVERE (8-10): Excruciating pain, unable to do any normal activities. - WORST HEADACHE (10+): 'Worst headache' of life. 5. RECURRENT SYMPTOM: denies 6. CAUSE: was dx with a sinus infection recently 7. MIGRAINE: denies 8. HEAD INJURY: denies 9. OTHER SYMPTOMS: denies fever, stiff neck, sore throat, cold symptoms, runny or stuffy nose or cough. Does have some dizziness and eye pain but denies visual disturbances. 10. :n/a Answer Assessment - Initial Assessment Questions 1. DESCRIPTION: dizziness 2. LIGHTHEADED: c/o feeling somewhat faint, woozy, and weak upon standing up 3. VERTIGO: denies 4. SEVERITY: moderate - MILD: Feels slightly dizzy, but walking normally. - MODERATE: Feels unsteady when walking, but not falling; interferes with normal activities (e.g., school, work). - SEVERE: Unable to walk without falling, or requires assistance to walk without falling; feels like passing out now. 5. ONSET: This past Sunday 6. AGGRAVATING FACTORS: standing or change in head/body position 7. HEART RATE: Pt states someone from [employer] was just there at her house and took BP which was 132/78 and pulse in the 60's 8. CAUSE: unsure unless from recent sinus infection 9. RECURRENT SYMPTOM: denies 10. OTHER SYMPTOMS: headache 11. : n/a Answer Assessment - Initial Assessment Questions 1. LOCATION: behind left breast Sunday and Sunday-denies today 2. RADIATION: denies 3. ONSET: see above 4. PATTERN: intermittent 5. DURATION: 10 mins was longest, couple mins here and there 6. SEVERITY: When she had it 5/10 - MILD (1-3): Doesn't interfere with normal activities. - MODERATE (4-7): Interferes with normal activities or awakens from sleep. - SEVERE (8-10): Excruciating pain, unable to do any normal activities. 7. CARDIAC RISK FACTORS: Pt with h/o diabetes, high blood pressure, high cholesterol, smoking history, and very strong family history of heart disease 8. PULMONARY RISK FACTORS: COPD 9. CAUSE: unsure 10. OTHER SYMPTOMS: headache and dizziness. Denies having any nausea, vomiting, sweating, fever, difficulty breathing, cough 11. : n/a Protocols used: Yrdckcty-JRQIG-AN, Dizziness - Qigksehadoatjwa-DURZW-WI, Chest Iste-PBYGT-WW documented in this encounterPrem[facility]25 NoteHNO ID: [id number] Author: NATO OROZCO APRN.[facility] Service: ? Author Type: Nurse Practitioner Type: Progress Notes Filed: 04/14/2024 15:36 Note Text: CC: Patient presents with: sinus pain and pressure: X [address], cough and ARAIZA HPI: Wilton Khan is a 64 year old female who presents to the office with complaint of head congestion and sinus symptoms for 2 weeks. Symptoms are staying the same. Associated symptoms includes nasal congestion and facial pain/pressure. Denies wheezing, dyspnea, nausea, vomiting , and diarrhea. Treatments tried include nothing so far. with no relief of symptoms. Sick contacts: unknown. History of asthma, frequent episodes of bronchitis, chronic bronchitis, bronchiectasis or COPD: No Smoker: No Seasonal/environmental allergies: No The ROS is otherwise negative. The patient's pmh, medications, allergies, and past visits are reviewed. PHYSICAL EXAM: BP 132/82 Pulse 80 Temp 36.9 ?C (98.4 ?F) (Tympanic) Resp 18 Wt (!) 164.7 kg (363 lb) LMP 12/11/2008 SpO2 95% BMI 73.32 kg/m? General appearance: alert, cooperative, pleasant, in no acute distress Head: Normocephalic, maxillary and frontal sinus pressure. Eyes: EOM's intact, conjunctiva pink and moist, no icterus, sclera white, non-injected Ears: Right ear: External ear/canal- Normal, TM - clear with good landmarks. Left ear: External ear/canal- Normal, TM - clear with good landmarks Oropharynx:moist without lesions, No erythema, exudates or tonsillar hypertrophy. Heart: Negative. RRR without obvious murmur, gallop, or rubs. No ectopy. Lungs: clear to auscultation, without rales or wheeze, good air exchange PAST MEDICAL HISTORY Diagnosis Date Abnormal glandular Papanicolaou smear of cervix 05/30/05 ABNL GLANDULAR PAP SMEAR CERVIX Acute gastritis without mention of hemorrhage Anxiety state, unspecified Arrhythmia Chronic cholecystitis Chronic obstructive pulmonary disease (COPD) ([facility]) Congestive heart failure ([facility]) 10/03/2011 Diabetes ([facility]) diabetes II 2010 Diaphragmatic hernia without mention of obstruction or gangrene Dysthymic disorder Depression (non-psychotic) Esophageal reflux Essential hypertension, benign Generalized OA Hyperprolactinemia ([facility]) 10/13/2005 Localized osteoarthrosis not specified whether primary or secondary, lower leg Major depressive disorder, recurrent episode Mucous polyp of cervix 07/19/05 Other and unspecified anterior pituitary hyperfunction ([facility]) 10/13/05 elevated prolactin level-was normal in 2011 PMH - PAST MEDICAL HISTORY OF sleep apnea PMH - PAST MEDICAL HISTORY OF sleep apnea SVT (supraventricular tachycardia) ([facility]) 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 Type 2 diabetes mellitus without complication, with long-term current use of insulin ([facility]) 12/22/2013 PAST SURGICAL HISTORY Procedure Laterality Date BIOPSY CERVIX SINGLE/MULT/EXCISION OF LESION SPX 07/19/2005 endocervical polyp COLONOSCOPY FLX DX W/COLLJ SPEC WHEN PFRMD 01/09/2012 Colonoscopy repeat 10 years COLPOSCOPY CERVIX UPPER/ADJACENT VAGINA Colposcopy EGD TRANSORAL BIOPSY SINGLE/MULTIPLE 01/16/2007 ESOPHAGOGASTRODUODENOSCOPY TRANSORAL DIAGNOSTIC 01/09/2012 EGD HERNIA REPAIR HX 11/2015 ventral HYSTEROSCOPY DX 12/17/2014 [facility] LAPS SURG CHOLECYSTECTOMY W/CHOLANGIOGRAPHY 05/15/2008 PARATHYROID ALLERGIES Lyrica [Pregabalin], Accupril [Quinapril Hcl], Actos [Pioglitazone], Amlodipine, Atenolol, Atorvastatin, Celebrex [Celecoxib], Effexor [Venlafaxine Hcl], Januvia [Sitagliptin], Metoprolol, Mobic [Meloxicam], Prozac [Fluoxetine Hcl], Remeron [Mirtazapine], Risperidone, Seroquel [Quetiapine Fumarate], Trulicity [Dulaglutide], Vancomycin, Vioxx [Rofecoxib], and Wellbutrin [Bupropion Hcl] MEDICATIONS doxycycline (VIBRA-TABS) 100 mg tablet Take 1 tablet by mouth two times a day for 7 days. Blood-Glucose Meter,Continuous (DEXExam18 G7 ADVANCED REGISTERED NURSE) [facility] Use to check blood sugar at least four (4) times daily. Blood-Glucose Sensor (DEXCOM G7 SENSOR) jessica Apply new sensor every ten (10) days. hydrOXYzine pamoate (VISTARIL) 25 mg capsule Take 1 capsule by mouth three times a day as needed. ARIPiprazole (ABILIFY) 10 mg tablet Take 1 tablet by mouth once daily. spironolactone (ALDACTONE) 25 mg tablet Take 1 tablet by mouth once daily. tiZANidine (ZANAFLEX) 4 mg tablet Take 1 tablet by mouth every 8 hours as needed (muscle spasms). HYDROcodone-acetaminophen (NORCO) 5-325 mg per tablet Take 1 tablet by mouth two times a day as needed for pain for up to 30 days. potassium chloride SR (MICRO-K) 8 mEq cpER Take 1 capsule by mouth daily with breakfast. Blood-Glucose Transmitter (DoubleVerifyCOM G6 TRANSMITTER) jessica Apply new transmitter every 90 days. Clean transmitter with an alcohol swab with each sensor change. pravastatin (PRAVACHOL) 20 mg tablet Take 1 tablet by mouth daily at bedtime. furosemide (LASIX) 80 mg tablet Take 1 tablet by mouth (more content not included)...[facility]02-24-2025 History of Present illness Narrative* Nato Orozco APRN.[employer] - 04/14/2024 3:35 PM EST CC: Patient presents with: sinus pain and pressure: X [address], cough and ARAIZA HPI: Wilton Khan is a 64 year old female who presents to the office with complaint of head congestion and sinus symptoms for 2 weeks. Symptoms are staying the same. Associated symptoms includes nasal congestion and facial pain/pressure. Denies wheezing, dyspnea, nausea, vomiting , and diarrhea. Treatments tried include nothing so far. with no relief of symptoms. Sick contacts: unknown. History of asthma, frequent episodes of bronchitis, chronic bronchitis, bronchiectasis or COPD: No Smoker: No Seasonal/environmental allergies: No The ROS is otherwise negative. The patient's pmh, medications, allergies, and past visits are reviewed. PHYSICAL EXAM: BP 132/82 Pulse 80 Temp 36.9 C (98.4 F) (Tympanic) Resp 18 Wt (!) 164.7 kg (363 lb) LMP 12/11/2008 SpO2 95% BMI 73.32 kg/m General appearance: alert, cooperative, pleasant, in no acute distress Head: Normocephalic, maxillary and frontal sinus pressure. Eyes: EOM's intact, conjunctiva pink and moist, no icterus, sclera white, non-injected Ears: Right ear: External ear/canal- Normal, TM - clear with good landmarks. Left ear: External ear/canal- Normal, TM - clear with good landmarks Oropharynx:moist without lesions, No erythema, exudates or tonsillar hypertrophy. Heart: Negative. RRR without obvious murmur, gallop, or rubs. No ectopy. Lungs: clear to auscultation, without rales or wheeze, good air exchange PAST MEDICAL HISTORY Diagnosis Date Abnormal glandular Papanicolaou smear of cervix 05/30/05 ABNL GLANDULAR PAP SMEAR CERVIX Acute gastritis without mention of hemorrhage Anxiety state, unspecified Arrhythmia Chronic cholecystitis Chronic obstructive pulmonary disease (COPD) (HCC) Congestive heart failure (HCC) 10/03/2011 Diabetes (HCC) diabetes II 2010 Diaphragmatic hernia without mention of obstruction or gangrene Dysthymic disorder Depression (non-psychotic) Esophageal reflux Essential hypertension, benign Generalized OA Hyperprolactinemia (HCC) 10/13/2005 Localized osteoarthrosis not specified whether primary or secondary, lower leg Major depressive disorder, recurrent episode Mucous polyp of cervix 07/19/05 Other and unspecified anterior pituitary hyperfunction (HCC) 10/13/05 elevated prolactin level-was normal in 2011 PMH - PAST MEDICAL HISTORY OF sleep apnea PMH - PAST MEDICAL HISTORY OF sleep apnea SVT (supraventricular tachycardia) (HCC) 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 Type 2 diabetes mellitus without complication, with long-term current use of insulin (HCC) 12/22/2013 PAST SURGICAL HISTORY Procedure Laterality Date BIOPSY CERVIX SINGLE/MULT/EXCISION OF LESION SPX 07/19/2005 endocervical polyp COLONOSCOPY FLX DX W/COLLJ SPEC WHEN PFRMD 01/09/2012 Colonoscopy repeat 10 years COLPOSCOPY CERVIX UPPER/ADJACENT VAGINA Colposcopy EGD TRANSORAL BIOPSY SINGLE/MULTIPLE 01/16/2007 ESOPHAGOGASTRODUODENOSCOPY TRANSORAL DIAGNOSTIC 01/09/2012 EGD HERNIA REPAIR HX 11/2015 ventral HYSTEROSCOPY DX 12/17/2014 D&C LAPS SURG CHOLECYSTECTOMY W/CHOLANGIOGRAPHY 05/15/2008 PARATHYROID ALLERGIES Lyrica [Pregabalin], Accupril [Quinapril Hcl], Actos [Pioglitazone], Amlodipine, Atenolol, Atorvastatin, Celebrex [Celecoxib], Effexor [Venlafaxine Hcl], Januvia [Sitagliptin], Metoprolol, Mobic [Meloxicam], Prozac [Fluoxetine Hcl], Remeron [Mirtazapine], Risperidone, Seroquel [QuetiapineFumarate], Trulicity [Dulaglutide], Vancomycin, Vioxx [Rofecoxib], and Wellbutrin [Bupropion Hcl] MEDICATIONS doxycycline (VIBRA-TABS) 100 mg tablet Take 1 tablet by mouth two times a day for 7 days. Blood-Glucose Meter,Continuous (DEXCOM G7 ADVANCED REGISTERED NURSE) mis Use to check blood sugar at least four (4)times daily. Blood-Glucose Sensor (DEXCOM G7 SENSOR) jessica Apply new sensor every ten (10) days. hydrOXYzine pamoate (VISTARIL) 25 mg capsule Take 1 capsule by mouth three times a day as needed. ARIPiprazole (ABILIFY) 10 mg tablet Take 1 tablet by mouth once daily. spironolactone (ALDACTONE) 25 mg tablet Take 1 tablet by mouth once daily. tiZANidine (ZANAFLEX) 4 mg tablet Take 1 tablet by mouth every 8 hours as needed (muscle spasms). HYDROcodone-acetaminophen (NORCO) 5-325 mg per tablet Take 1 tablet by mouth two times a day as needed for pain for up to 30 days. potassium chloride SR (MICRO-K) 8 mEq cpER Take 1 capsule by mouth daily with breakfast. Blood-Glucose Transmitter (Dtime G6 TRANSMITTER) jessica Apply new transmitter every 90 days. Clean transmitter with an alcohol swab with each sensor change. pravastatin (PRAVACHOL) 20 mg tablet Take 1 tablet by mouth daily at bedtime. furosemide (LASIX) 80 mg tablet Take 1 tablet by mouth once daily. famotidine (PEPCID) 40 mg tablet Take 1 tablet by mouth once daily. Cholecalciferol, Vitamin D3, 125 mcg (5,000 unit) cap Take 1 capsule by mouth once daily. cncfiwix-gegk-qfr5-C-gio-bosw (OSTEO BI-FLEX TRIPLE STRENGTH) 750 mg-644 mg- 30 mg-1 mg tab Take 1tablet by mouth two times a day. DULoxetine (CYMBALTA) 60 mg capsule Take 1 capsule by mouth once daily. topiramate (TOPAMAX) 25 mg tablet Take 1 tablet by mouth two times a day. insulin glargine (LANTUS SOLOSTAR U-100 INSULIN) 100 unit/mL (3 mL) Inject 30 Units subcutaneously every morning. traZODone (DESYREL) 100 mg tablet Take 1 tablet by mouth daily at bedtime. gabapentin (NEURONTIN) 600 mg tablet Take 1 tablet by mouth three times a day for 180 days. ibuprofen (MOTRIN) 800 mg tablet Take 1 tablet by mouth every 8 hours as needed for pain. Take withfood. rOPINIRole (REQUIP) 0.25 mg tablet Take 1 tablet by mouth daily at bedtime. acetaminophen (ARTHRITIS PAIN RELIEF) 650 mg CR tablet Take 2 tablets by mouth every 8 hours as needed for pain. Not in same 8h period as [place] (hydrocodone Tylenol) blood sugar diagnostic (BLOOD GLUCOSE TEST) test strip Test blood sugars up to 4 times daily as directed. Dx: Type 2 DM - Controlled E11.9 Insulin: Yes. Insulin [place], Disposable, (BD ULTRA-FINE MADI PEN NEEDLE) 32 gauge x 5/32 Use one needle for each dose. 2/day. Lancets Test blood sugar(s) up to 4 times daily. Dx: Type 2 DM - Controlled E11.9 Insulin: Yes Blood-Glucose Meter monitoring kit Glucose Meter of Choice - Kit - Dx: Type 2 DM - Controlled E11.9 Disposable Gloves (DISPOSABLE LATEX-FREE GLOVES) misc 1 Box once every month. Adhesive Bandage ([place] DRESSING) 6 X 6 bndg Apply to affected area once daily. Miscellaneous Medical Supply Collagen dressing 2x2 Blood-Glucose Meter monitoring kit Glucose Meter of Choice - Kit - Dx: Type 2 DM - Controlled E11.9Use twice daily as directed ascorbic acid (VITAMIN C ORAL) Take 1 tablet by mouth once daily. FAMILY HISTORY Problem Relation Age of Onset Hypertension Mother Heart Mother concha stroke Diabetes Mother Stroke Mother Massive- Arthritis Mother Osteoarthritis Hypertension Father COPD Father Hypertension Sister Arthritis Sister Hypertension Sister Diabetes Sister Arthritis Sister Hypertension Sister Diabetes Sister Arthritis Sister Hypertension Sister Diabetes Sister other (Rheumatoid Arthritis) Sister Heart Brother Triple Bypass Heart Brother Heart Brother Heart Maternal Aunt Heart Maternal Uncle Social History Tobacco Use Smoking status: Former Current packs/day: 0.00 Average packs/day: 1 pack/day for 15.0 years (15.0 ttl pk-yrs) Types: Cigarettes Start date: 12/21/1979 Quit date: 12/20/1994 Years since quittin.3 Smokeless tobacco: Never Vaping Use Vaping status: Never Used Substance Use Topics Alcohol use: No Drug use: No ASSESSMENT/PLAN: 1. Rhinosinusitis - ICD9: 473.9, ICD10: J32.9 - DOXYCYCLINE HYCLATE 100 MG TABLET Prescription instructions reviewed with patient as applicable. Potential red flag symptoms discussed with the patient. Reviewed appropriate action plan to take if red flag symptoms occur. Patient agreeable to treatment plan. Nato Orozco APRN.LIZZIE documented in this encounterPrem[facility] Telephone encounter Note * Telephone Encounter - Sanjay Rondon RN - 04/14/2024 1:28 PM EST Pt returned call and given message below. Pt reports she is having s/s of sinus infection in her nose, blowing green, coughing up green, her throat is a little sore, and having isabel ear pain. Reports she was exposed to person with flu. Pt will see if she can get transportation, to doctors office or [facility]. Pt states her transportation may call in to verify she has an appt or if she can be seen in [facility]. Ok to tell them if she has an appt or being seen in [facility]. Since transportation can be difficult- pt may go to [facility] where an appt is not needed. [facility]02-24-[facility] Miscellaneous Notes* Telephone Encounter - Sanjay Rondon RN - 04/14/2024 1:28 PM EST Pt returned call and given message below. Pt reports she is having s/s of sinus infection in her nose, blowing green, coughing up green, her throat is a little sore, and having isabel ear pain. Reports she was exposed to person with flu. Pt will see if she can get transportation, to doctors office or [facility]. Pt states her transportation may call in to verify she has an appt or if she can be seen in [facility]. Ok to tell them if she has an appt or being seen in [facility]. Since transportation can be difficult- pt may go to [facility] where an appt is not needed. * Telephone Encounter - Leida Nava MA - 04/14/2024 1:13 PM EST Message left for pt to call back. Leida Nava MA * Telephone Encounter - Joi Markham APRN.CNP - 04/14/2024 10:54 AM EST Needs an appt. Too many things going around. * Telephone Encounter - Estefani Bell LPN - 04/14/2024 10:29 AM EST Pt calls to report she had the URI flu at the beginning of the month. Pt reports she is over the flu but pt reports she still has nasal/sinus congestion with dark green mucus, sinus pressure, and headache. Pt reports she has tried otc medication but it hasn't helped. Pt is asking if provider would call in atb for sinus infection. Pt cannot do virtual appts because she isn't capable. Pt denies fever, SOB, chest tightness/pain, cough. Please review and advise. Estefani Bell LPN documented in this encounterPrem[facility]02-24-2025 Telephone encounter Note * Telephone Encounter - Leida Nava MA - 04/14/2024 1:13 PM EST Message left for pt to call back. Leida Nava MA [facility]02-24-2025 Telephone encounter Note* Telephone Encounter - Joi Markham APRN.CNP - 04/14/2024 10:54 AM EST Needs an appt. Too many things going around. [facility]02-24-[facility] Telephone encounter Note* Telephone Encounter - Estefani Bell LPN - 04/14/2024 10:29 AM EST Pt calls to report she had the URI flu at the beginning of the month. Pt reports she is over the flu but pt reports she still has nasal/sinus congestion with dark green mucus, sinus pressure, and headache. Pt reports she has tried otc medication but it hasn't helped. Pt is asking if provider would call in atb for sinus infection. Pt cannot do virtual appts because she isn't capable. Pt denies fever, SOB, chest tightness/pain, cough. Please review and advise. Estefani Bell LPN [facility]01-27-2025 Telephone encounter Note* Telephone Encounter - Joi Markham APRN.CNP - 03/17/2024 3:58 PM EST The following approved medication requests have been transmitted electronically. Requested Prescriptions Pending Prescriptions Disp Refills Blood-Glucose Meter,Continuous (DEXCOM G7 ADVANCED REGISTERED NURSE) misc 1 Each 0 Sig: Use to check blood sugar at least four (4) times daily. Blood-Glucose Sensor (DEXCOM G7 SENSOR) jessica 9 Each 3 Sig: Apply new sensor every ten (10) days. Refused Prescriptions Disp Refills Blood-Glucose Transmitter (DEXCOM G6 TRANSMITTER) jessica 1 Each 3 Sig: Apply new transmitter every 90 days. Clean transmitter with an alcohol swab with each sensor change. Joi Markham APRN.CNP [facility]01-27-2025 Miscellaneous Notes* Telephone Encounter - Joi Markham APRN.CNP - 03/17/2024 3:58 PM EST The following approved medication requests have been transmitted electronically. Requested Prescriptions Pending Prescriptions Disp Refills Blood-Glucose Meter,Continuous (DEXCOM G7 ADVANCED REGISTERED NURSE) misc 1 Each 0 Sig: Use to check blood sugar at least four (4) times daily. Blood-Glucose Sensor (DEXCOM G7 SENSOR) jessica 9 Each 3 Sig: Apply new sensor every ten (10) days. Refused Prescriptions Disp Refills Blood-Glucose Transmitter (DEXCOM G6 TRANSMITTER) jessica 1 Each 3 Sig: Apply new transmitter every 90 days. Clean transmitter with an alcohol swab with each sensor change. Joi Markham APRN.CNP * Telephone Encounter - Emily Garcia RN - 03/17/2024 12:51 PM EST Patient calls to ask if provider would send Dexcom prescriptions to [facility] as she no longer drives and they can deliver them to her at her home address. Pended per patient request. Emily Garcia RN documented in this encounterPrem[facility]01-27-2025 Telephone encounter Note * Telephone Encounter - Emily Garcia RN - 03/17/2024 12:51 PM EST Patient calls to ask if provider would send Dexcom prescriptions to [facility] as she no longer drives and they can deliver them to her at her home address. Pended per patient request. Emily Garcia RN [facility]01-24-2025 Telephone encounter Note* Telephone Encounter - Katherine Ramirez LPN - 03/14/2024 8:21 AM EST Patient notified with results. Patient verbalizes understanding. Katherine Ramirez LPN [facility]01-24-2025 Miscellaneous Notes* Telephone Encounter - Katherine Ramirez LPN - 03/14/2024 8:21 AM EST Patient notified with results. Patient verbalizes understanding. Katherine Ramirez LPN * Telephone Encounter - Katherine Ramirez LPN - 03/14/2024 8:16 AM EST Left a message for pt to call the office and ask to speak to a nurse. Katherine Ramirez LPN * Telephone Encounter - Katherine Ramirez LPN - 03/14/2024 8:16 AM EST ----- Message from Joi Markham sent at 03/14/2024 7:50 AM EST ----- Labs look okay. Magnesium is therapeutic. Hemoglobin A1c indicates blood sugars are okay. Thyroid screening normal range. documented in this encounterPrem[facility]01-24-2025 Telephone encounter Note * Telephone Encounter - Katherine Ramirez LPN - 03/14/2024 8:16 AM EST Left a message for pt to call the office and ask to speak to a nurse. Katherine Ramirez LPN [facility]01-24-20[facility] Telephone encounter Note* Telephone Encounter - Katherine Ramirez LPN - 03/14/2024 8:16 AM EST ----- Message from Joi Markham sent at 03/14/2024 7:50 AM EST ----- Labs look okay. Magnesium is therapeutic. Hemoglobin A1c indicates blood sugars are okay. Thyroid screening normal range. [facility]01-23-2025 Instructions* Patient Instructions* Joi Markham APRN.CNP - 03/13/2024 9:49 AM EST 1) Stool card for occult blood 2) DME- [facility] for shower chair- 3) Labs today 4) Consult Dr. Guerrero 5) Dex-com 7 ordered 6) Follow up in 6 months documented in this encounterPremier [facility]01-23-2025 NoteHNO ID: [id number] Author: SUPPAN, JOI, WALLP[employer]ER [employer]OVER [employer].OIL FIELD ROUSTABOUT Service: ? Author Type: Physician Type: Progress Notes Filed: 03/13/2024 11:19 Note Text: This is a 64 year old female who presents today with: No chief complaint on file. HISTORY OF PRESENT ILLNESS: Wilton Khan is a 64 year old female. No chief complaint on file. Would like refill of hydroxyzine- helpful Feeling good Wants 2 cd Shingles vaccine Dexcom 6 - CGM- won't adhere. Wants to try Dexcom 7 DM: Reports overall feeling well. Medication side effects: No. Home sugar checks: 150- 200s Hypoglycemic spells: No. Low of 100 Watching diet: Yes. Unexpected weight loss: No. Polyuria, polydipsia: No. Vision Changes: Yes. Up- to -date with eye exam) Foot lesions or numbness or pain: Yes. PAST MEDICAL HISTORY: PAST MEDICAL HISTORY Diagnosis Date Abnormal glandular Papanicolaou smear of cervix 05/30/05 ABNL GLANDULAR PAP SMEAR CERVIX Acute gastritis without mention of hemorrhage Anxiety state, unspecified Arrhythmia Chronic cholecystitis Chronic obstructive pulmonary disease (COPD) ([facility]) Congestive heart failure ([facility]) 10/03/2011 Diabetes ([facility]) diabetes II 2010 Diaphragmatic hernia without mention of obstruction or gangrene Dysthymic disorder Depression (non-psychotic) Esophageal reflux Essential hypertension, benign Generalized OA Hyperprolactinemia ([facility]) 10/13/2005 Localized osteoarthrosis not specified whether primary or secondary, lower leg Major depressive disorder, recurrent episode Mucous polyp of cervix 07/19/05 Other and unspecified anterior pituitary hyperfunction ([facility]) 10/13/05 elevated prolactin level-was normal in 2011 PMH - PAST MEDICAL HISTORY OF sleep apnea PMH - PAST MEDICAL HISTORY OF sleep apnea SVT (supraventricular tachycardia) ([facility]) 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 Type 2 diabetes mellitus without complication, with long-term current use of insulin ([facility]) 12/22/2013 PAST SURGICAL HISTORY Procedure Laterality Date BIOPSY CERVIX SINGLE/MULT/EXCISION OF LESION SPX 07/19/2005 endocervical polyp COLONOSCOPY FLX DX W/COLLJ SPEC WHEN PFRMD 01/09/2012 Colonoscopy repeat 10 years COLPOSCOPY CERVIX UPPER/ADJACENT VAGINA Colposcopy EGD TRANSORAL BIOPSY SINGLE/MULTIPLE 01/16/2007 ESOPHAGOGASTRODUODENOSCOPY TRANSORAL DIAGNOSTIC 01/09/2012 EGD HERNIA REPAIR HX 11/2015 ventral HYSTEROSCOPY DX 12/17/2014 [facility] LAPS SURG CHOLECYSTECTOMY W/CHOLANGIOGRAPHY 05/15/2008 PARATHYROID ALLERGIES Lyrica [Pregabalin], Accupril [Quinapril Hcl], Actos [Pioglitazone], Amlodipine, Atenolol, Atorvastatin, Celebrex [Celecoxib], Effexor [Venlafaxine Hcl], Januvia [Sitagliptin], Metoprolol, Mobic [Meloxicam], Prozac [Fluoxetine Hcl], Remeron [Mirtazapine], Risperidone, Seroquel [Quetiapine Fumarate], Trulicity [Dulaglutide], Vancomycin, Vioxx [Rofecoxib], and Wellbutrin [Bupropion Hcl] MEDICATIONS Current Outpatient Medications Medication Sig ARIPiprazole (ABILIFY) 10 mg tablet Take 1 tablet by mouth once daily. spironolactone (ALDACTONE) 25 mg tablet Take 1 tablet by mouth once daily. tiZANidine (ZANAFLEX) 4 mg tablet Take 1 tablet by mouth every 8 hours as needed (muscle spasms). HYDROcodone-acetaminophen (NORCO) 5-325 mg per tablet Take 1 tablet by mouth two times a day as needed for pain for up to 30 days. potassium chloride SR (MICRO-K) 8 mEq cpER Take 1 capsule by mouth daily with breakfast. Blood-Glucose Transmitter (Dtime G6 TRANSMITTER) jessica Apply new transmitter every 90 days. Clean transmitter with an alcohol swab with each sensor change. pravastatin (PRAVACHOL) 20 mg tablet Take 1 tablet by mouth daily at bedtime. furosemide (LASIX) 80 mg tablet Take 1 tablet by mouth once daily. famotidine (PEPCID) 40 mg tablet Take 1 tablet by mouth once daily. Cholecalciferol, Vitamin D3, 125 mcg (5,000 unit) cap Take 1 capsule by mouth once daily. hfpjqczw-stkr-xyw2-C-gio-bosw (OSTEO BI-FLEX TRIPLE STRENGTH) 750 mg-644 mg- 30 mg-1 mg tab Take 1 tablet by mouth two times a day. DULoxetine (CYMBALTA) 60 mg capsule Take 1 capsule by mouth once daily. topiramate (TOPAMAX) 25 mg tablet Take 1 tablet by mouth two times a day. insulin glargine (LANTUS SOLOSTAR U-100 INSULIN) 100 unit/mL (3 mL) Inject 30 Units subcutaneously every morning. traZODone (DESYREL) 100 mg tablet Take 1 tablet by mouth daily at bedtime. polyethylene glycol 3350 17 gram/dose powder Take 17 g by mouth once daily. gabapentin (NEURONTIN) 600 mg tablet Take 1 tablet by mouth three times a day for 180 days. ibuprofen (MOTRIN) 800 mg tablet Take 1 tablet by mouth every 8 hours as needed for pain. Take with food. rOPINIRole (REQUIP) 0.25 mg tablet Take 1 tablet by mouth daily at bedtime. acetaminophen (ARTHRITIS PAIN RELIEF) 650 mg CR tablet Take 2 tablets by mouth every 8 hours as needed for pain. Not in same 8h period as [place] (hydrocodone Tylenol) blood sugar diagnostic (BLOOD GLU (more content not included)...[facility]01-23-2025 History of Present illness Narrative* Joi Markham APRN.OIL FIELD ROUSTABOUT - 03/13/2024 9:41 AM EST This is a 64 year old female who presents today with: No chief complaint on file. HISTORY OF PRESENT ILLNESS: Wilton Khan is a 64 year old female. No chief complaint on file. Would like refill of hydroxyzine- helpful Feeling good Wants 2 cd Shingles vaccine Dexcom 6 - CGM- won't adhere. Wants to try Dexcom 7 DM: Reports overall feeling well. Medication side effects: No. Home sugar checks: 150- 200s Hypoglycemic spells: No. Low of 100 Watching diet: Yes. Unexpected weight loss: No. Polyuria, polydipsia: No. Vision Changes: Yes. Up- to -date with eye exam) Foot lesions or numbness or pain: Yes. PAST MEDICAL HISTORY: PAST MEDICAL HISTORY Diagnosis Date Abnormal glandular Papanicolaou smear of cervix 05/30/05 ABNL GLANDULAR PAP SMEAR CERVIX Acute gastritis without mention of hemorrhage Anxiety state, unspecified Arrhythmia Chronic cholecystitis Chronic obstructive pulmonary disease (COPD) (HCC) Congestive heart failure (HCC) 10/03/2011 Diabetes (HCC) diabetes II 2010 Diaphragmatic hernia without mention of obstruction or gangrene Dysthymic disorder Depression (non-psychotic) Esophageal reflux Essential hypertension, benign Generalized OA Hyperprolactinemia (HCC) 10/13/2005 Localized osteoarthrosis not specified whether primary or secondary, lower leg Major depressive disorder, recurrent episode Mucous polyp of cervix 07/19/05 Other and unspecified anterior pituitary hyperfunction ([facility]) 10/13/05 elevated prolactin level-was normal in 2011 PMH - PAST MEDICAL HISTORY OF sleep apnea PMH - PAST MEDICAL HISTORY OF sleep apnea SVT (supraventricular tachycardia) ([facility]) 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 Type 2 diabetes mellitus without complication, with long-term current use of insulin ([facility]) 12/22/2013 PAST SURGICAL HISTORY Procedure Laterality Date BIOPSY CERVIX SINGLE/MULT/EXCISION OF LESION SPX 07/19/2005 endocervical polyp COLONOSCOPY FLX DX W/COLLJ SPEC WHEN PFRMD 01/09/2012 Colonoscopy repeat 10 years COLPOSCOPY CERVIX UPPER/ADJACENT VAGINA Colposcopy EGD TRANSORAL BIOPSY SINGLE/MULTIPLE 01/16/2007 ESOPHAGOGASTRODUODENOSCOPY TRANSORAL DIAGNOSTIC 01/09/2012 EGD HERNIA REPAIR HX 11/2015 ventral HYSTEROSCOPY DX 12/17/2014 [facility] LAPS SURG CHOLECYSTECTOMY W/CHOLANGIOGRAPHY 05/15/2008 PARATHYROID ALLERGIES Lyrica [Pregabalin], Accupril [Quinapril Hcl], Actos [Pioglitazone], Amlodipine, Atenolol, Atorvastatin, Celebrex [Celecoxib], Effexor [Venlafaxine Hcl], Januvia [Sitagliptin], Metoprolol, Mobic [Meloxicam], Prozac [Fluoxetine Hcl], Remeron [Mirtazapine], Risperidone, Seroquel [QuetiapineFumarate], Trulicity [Dulaglutide], Vancomycin, Vioxx [Rofecoxib], and Wellbutrin [Bupropion Hcl] MEDICATIONS Current Outpatient Medications Medication Sig ARIPiprazole (ABILIFY) 10 mg tablet Take 1 tablet by mouth once daily. spironolactone (ALDACTONE) 25 mg tablet Take 1 tablet by mouth once daily. tiZANidine (ZANAFLEX) 4 mg tablet Take 1 tablet by mouth every 8 hours as needed (muscle spasms). HYDROcodone-acetaminophen (NORCO) 5-325 mg per tablet Take 1 tablet by mouth two times a day as needed for pain for up to 30 days. potassium chloride SR (MICRO-K) 8 mEq cpER Take 1 capsule by mouth daily with breakfast. Blood-Glucose Transmitter (DEXCOM G6 TRANSMITTER) jessica Apply new transmitter every 90 days. Clean transmitter with an alcohol swab with each sensor change. pravastatin (PRAVACHOL) 20 mg tablet Take 1 tablet by mouth daily at bedtime. furosemide (LASIX) 80 mg tablet Take 1 tablet by mouth once daily. famotidine (PEPCID) 40 mg tablet Take 1 tablet by mouth once daily. Cholecalciferol, Vitamin D3, 125 mcg (5,000 unit) cap Take 1 capsule by mouth once daily. ufeqehuo-rohi-gzu1-C-gio-bosw (OSTEO BI-FLEX TRIPLE STRENGTH) 750 mg-644 mg- 30 mg-1 mg tab Take 1tablet by mouth two times a day. DULoxetine (CYMBALTA) 60 mg capsule Take 1 capsule by mouth once daily. topiramate (TOPAMAX) 25 mg tablet Take 1 tablet by mouth two times a day. insulin glargine (LANTUS SOLOSTAR U-100 INSULIN) 100 unit/mL (3 mL) Inject 30 Units subcutaneously every morning. traZODone (DESYREL) 100 mg tablet Take 1 tablet by mouth daily at bedtime. polyethylene glycol 3350 17 gram/dose powder Take 17 g by mouth once daily. gabapentin (NEURONTIN) 600 mg tablet Take 1 tablet by mouth three times a day for 180 days. ibuprofen (MOTRIN) 800 mg tablet Take 1 tablet by mouth every 8 hours as needed for pain. Take withfood. rOPINIRole (REQUIP) 0.25 mg tablet Take 1 tablet by mouth daily at bedtime. acetaminophen (ARTHRITIS PAIN RELIEF) 650 mg CR tablet Take 2 tablets by mouth every 8 hours as needed for pain. Not in same 8h period as [place] (hydrocodone Tylenol) blood sugar diagnostic (BLOOD GLUCOSE TEST) test strip Test blood sugars up to 4 times daily as directed. Dx: Type 2 DM - Controlled E11.9 Insulin: Yes. Blood-Glucose Sensor (DEXCOM G6 SENSOR) jessica Apply new sensor every 10 days to abdomen. hydrOXYzine pamoate (VISTARIL) 25 mg capsule Take 1 capsule by mouth three times a day as needed. Insulin Maljamar, Disposable, (BD ULTRA-FINE MADI PEN NEEDLE) 32 gauge x Use one needle for each dose. 2/day. Lancets Test blood sugar(s) up to 4 times daily. Dx: Type 2 DM - Controlled E11.9 Insulin: Yes Blood-Glucose Meter monitoring kit Glucose Meter of Choice - Kit - Dx: Type 2 DM - Controlled E11.9 Blood-Glucose Meter,Continuous (DEXCOM G6 ADVANCED REGISTERED NURSE) misc Use to check blood sugar at least 4 times a day. Disposable Gloves (DISPOSABLE LATEX-FREE GLOVES) misc 1 Box once every month. Adhesive Bandage ([place] DRESSING) 6 X 6 bndg Apply to affected area once daily. Miscellaneous Medical Supply Collagen dressing 2x2 Blood-Glucose Meter monitoring kit Glucose Meter of Choice - Kit - Dx: Type 2 DM - Controlled E11.9Use twice daily as directed ascorbic acid (VITAMIN C ORAL) Take 1 tablet by mouth once daily. No current facility-administered medications for this visit. FAMILY HISTORY Problem Relation Age of Onset Hypertension Mother Heart Mother concha stroke Diabetes Mother Stroke Mother Massive- Arthritis Mother Osteoarthritis Hypertension Father COPD Father Hypertension Sister Arthritis Sister Hypertension Sister Diabetes Sister Arthritis Sister Hypertension Sister Diabetes Sister Arthritis Sister Hypertension Sister Diabetes Sister other (Rheumatoid Arthritis) Sister Heart Brother Triple Bypass Heart Brother Heart Brother Heart Maternal Aunt Heart Maternal Uncle Social History Tobacco Use Smoking status: Former Current packs/day: 0.00 Average packs/day: 1 pack/day for 15.0 years (15.0 ttl pk-yrs) Types: Cigarettes Start date: 12/21/1979 Quit date: 12/20/1994 Years since quittin.2 Smokeless tobacco: Never Vaping Use Vaping status: Never Used Substance Use Topics Alcohol use: No Drug use: No REVIEW OF SYSTEMS GENERAL: + weight loss, + malaise, no fevers/chills HEENT: Negative for frequent or significant headaches, No changes in hearing, some vision changes. NECK: Negative for lumps, goiter, pain and significant neck swelling RESPIRATORY: Negative for cough, hemoptysis, wheezing, dyspnea or shortness of breath CARDIOVASCULAR: Negative for chest pain, a little leg swelling, + orthopnea, no palpitations GI: No nausea, vomiting, or diarrhea/constipation. No hematochezia/melena. No heartburn or reflux symptoms. : No history of dysuria, frequency or incontinence MUSCULOSKELETAL: Back and legs always hurt SKIN: Negative for lesions or rash, + itching from dryness ENDOCRINE: Negative for cold or heat intolerance, polyuria, polydipsia and goiter NEURO: No history of headaches, syncope, paralysis, no seizures, + intention tremors MOOD: Negative for depression, + anxiety- hydroxyzine, or suicidal ideation. EXAM: BP 119/77 Pulse 74 LMP 12/11/2008 SpO2 98% PHYSICAL EXAM: Physical Exam Vitals reviewed. Constitutional: Appearance: She is obese. HENT: Head: Normocephalic. Neck: Vascular: No carotid bruit. Cardiovascular: Rate and Rhythm: Normal rate and regular rhythm. Pulses: Normal pulses. Heart sounds: Normal heart sounds. Pulmonary: Effort: Pulmonary effort is normal. Breath sounds: Normal breath sounds. Abdominal: General: Bowel sounds are normal. Palpations: Abdomen is soft. Tenderness: There is no abdominal tenderness. There is no guarding or rebound. Musculoskeletal: Right lower leg: No edema. Left lower leg: No edema. Comments: Generalized weakness- presents in a reclining motorized w/c Lymphadenopathy: Cervical: No cervical adenopathy. Skin: General: Skin is warm and dry. Neurological: Mental Status: She is alert and oriented to person, place, and time. Psychiatric: Mood and Affect: Mood normal. Behavior: Behavior normal. LABS: ASSESSMENT/PLAN: 1. Type 2 diabetes mellitus with peripheral neuropathy (HCC) - ICD9: 250.60, 357.2, ICD10: E11.42 (primary diagnosis) - Control undetermined, due for labs - Continue current medications - DEXCOM G7 ADVANCED REGISTERED NURSE - DEXCOM G7 SENSOR DEVICE 2. Encounter for immunization - ICD9: V03.89, ICD10: Z23 - ZOSTER VACCINE, RECOMBINANT (SHINGRIX) 3. Pain disorder with psychological factors - ICD9: 307.80, ICD10: F45.42 Ongoing 4. Diffuse myofascial pain syndrome - ICD9: 729.1, ICD10: M79.18 Ongoing 5. SVT (supraventricular tachycardia) (HCC) - ICD9: 427.89, ICD10: I47.10 Ongoing 6. Essential hypertension, benign - ICD9: 401.1, ICD10: I10 - Controlled - Recommend home blood pressure monitoring, to bring results to next visit - Encouraged sodium restriction, DASH or Mediterranean diet - Recommend regular aerobic exercise 7. Obstructive sleep apnea - ICD9: 327.23, ICD10: G47.33 Has CPAP- not always adherent - Wants to establish with Dr. Guerrero 8. Chronic respiratory failure with hypoxia (HCC) - ICD9: 518.83, 799.02, ICD10: J96.11 Ongoing 9. Degeneration of intervertebral disc of lumbar region with discogenic back pain - ICD9: 722.52, ICD10: M51.360 Ongoing- takes gabapentin 10. Anxiety with depression - ICD9: 300.4, ICD10: F41.8 Renew hydroxyzine - HYDROXYZINE PAMOATE 25 MG CAPSULE 11. Screening for colon cancer - ICD9: V76.51, ICD10: Z12.11 Check fit card - IMMUNOCHEMICAL FECAL OCCULT BLOOD TEST 12. Morbid obesity with BMI of 50.0-59.9, adult (HCC) - ICD9: 278.01, V85.43, ICD10: E66.01, Z68.43 Weight decreasing - Continue current medications - DME SUPPLY OR ACCESSORY, NOS - DME SUPPLY OR ACCESSORY, NOS 13. Age-related physical debility - ICD9: 797, ICD10: R54 Ongoing- needs bariatric chair - DME SUPPLY OR ACCESSORY, NOS - DME SUPPLY OR ACCESSORY, NOS Discussed treatment plan and patient voices understanding. Patient's questions answered appropriately. Medications and potential side effects were discussed and patient voices understanding. Return to the office as scheduled or as needed for worsening/no improvement. Joi Markham APRN.OIL FIELD ROUSTABOUT documented in this encounterPrem[facility]25 NotePatient Outreach (FAMPWS) WILTON KHAN V ([id number]) 1960 F Date Time Provider Department 03/11/24 JOI MARKHAM During your visit today, we recorded the following information about you: Allergies As of Date: 03/11/2024 Noted Allergy Reaction LYRICA (PREGABALIN) 08/05/2012 10 - Anaphylaxis Comments: Not sure if accurate. Can take gabapentin. Patient is unsure of reaction. ACCUPRIL (QUINAPRIL HCL) 08/12/2005 5 - Intolerance Comments: dizziness ACTOS (PIOGLITAZONE) 05/14/2020 7 - Swelling AMLODIPINE 04/24/2008 7 - Swelling Comments: Leg edema ATENOLOL 09/29/2010 7 - Swelling ATORVASTATIN 11/01/2017 5 - Intolerance Comments: Muscle cramps and weakness CELEBREX (CELECOXIB) 11/25/2020 7 - Swelling EFFEXOR (VENLAFAXINE HCL) 09/22/2005 Comments: swelling high blood pressure JANUVIA (SITAGLIPTIN) 09/21/2011 8 - GI Upset 14 - Other: See Comments Comments: Patient states she couldn't eat METOPROLOL 09/21/2009 7 - Swelling MOBIC (MELOXICAM) 08/12/2005 8 - GI Upset PROZAC (FLUOXETINE HCL) 08/12/2005 5 - Intolerance Comments: tremor REMERON (MIRTAZAPINE) 11/25/2020 2 - Rash RISPERIDONE 12/22/2009 1 - Mental Status Change SEROQUEL (QUETIAPINE FUMARATE) 10/05/2006 Comments: hypertension,swelling TRULICITY (DULAGLUTIDE) 05/10/2023 5 - Intolerance Comments: Caused nausea and cramps VANCOMYCIN 08/10/2017 9 - Itching 14 - Other: See Comments 2 - Rash Comments: red all over Other reaction(s): Other: See Comments red all over VIOXX (ROFECOXIB) 08/12/2005 8 - GI Upset WELLBUTRIN (BUPROPION HCL) 08/12/2005 5 - Intolerance Comments: nightmares Date Reviewed: 11/09/2023 Reviewed by: Joi Markham APRN.OIL FIELD ROUSTABOUT - Fully Assessed Visit Diagnosis:Encounter for screening mammogram for breast cancer [Z12.31] Order(s):JOSÉ ANTONIO SCREENING Bernardino GARCIA [[id number]] Order #: [id number] FUTURE Prescriptions as of 04/11/2024 - Blood-Glucose Meter,Continuous (DEXCOM G7 ADVANCED REGISTERED NURSE) misc Use to check blood sugar at least four (4) times daily. - Blood-Glucose Sensor (DEXCOM G7 SENSOR) jessica Apply new sensor every ten (10) days. - hydrOXYzine pamoate (VISTARIL) 25 mg capsule Take 1 capsule by mouth three times a day as needed. - ARIPiprazole (ABILIFY) 10 mg tablet Take 1 tablet by mouth once daily. - spironolactone (ALDACTONE) 25 mg tablet Take 1 tablet by mouth once daily. - tiZANidine (ZANAFLEX) 4 mg tablet Take 1 tablet by mouth every 8 hours as needed (muscle spasms). - HYDROcodone-acetaminophen (NORCO) 5-325 mg per tablet Take 1 tablet by mouth two times a day as needed for pain for up to 30 days. - potassium chloride SR (MICRO-K) 8 mEq cpER Take 1 capsule by mouth daily with breakfast. - Blood-Glucose Transmitter (Dtime G6 TRANSMITTER) jessica Apply new transmitter every 90 days. Clean transmitter with an alcohol swab with each sensor change. - pravastatin (PRAVACHOL) 20 mg tablet Take 1 tablet by mouth daily at bedtime. - furosemide (LASIX) 80 mg tablet Take 1 tablet by mouth once daily. - famotidine (PEPCID) 40 mg tablet Take 1 tablet by mouth once daily. - Cholecalciferol, Vitamin D3, 125 mcg (5,000 unit) cap Take 1 capsule by mouth once daily. - kicqthba-gmot-rgs5-C-gio-bosw (OSTEO BI-FLEX TRIPLE STRENGTH) 750 mg-644 mg- 30 mg-1 mg tab Take 1 tablet by mouth two times a day. - DULoxetine (CYMBALTA) 60 mg capsule Take 1 capsule by mouth once daily. - topiramate (TOPAMAX) 25 mg tablet Take 1 tablet by mouth two times a day. - insulin glargine (LANTUS SOLOSTAR U-100 INSULIN) 100 unit/mL (3 mL) Inject 30 Units subcutaneously every morning. - traZODone (DESYREL) 100 mg tablet Take 1 tablet by mouth daily at bedtime. - gabapentin (NEURONTIN) 600 mg tablet Take 1 tablet by mouth three times a day for 180 days. - ibuprofen (MOTRIN) 800 mg tablet Take 1 tablet by mouth every 8 hours as needed for pain. Take with food. - rOPINIRole (REQUIP) 0.25 mg tablet Take 1 tablet by mouth daily at bedtime. - acetaminophen (ARTHRITIS PAIN RELIEF) 650 mg CR tablet Take 2 tablets by mouth every 8 hours as needed for pain. Not in same 8h period as [place] (hydrocodone Tylenol) - blood sugar diagnostic (BLOOD GLUCOSE TEST) test strip Test blood sugars up to 4 times daily as directed. Dx: Type 2 DM - Controlled E11.9 Insulin: Yes. - Insulin Maljamar, Disposable, (BD ULTRA-FINE MADI PEN NEEDLE) 32 gauge x 5/32 Use one needle for each dose. 2/day. - Lancets Test blood sugar(s) up to 4 times daily. Dx: Type 2 DM - Controlled E11.9 Insulin: Yes - Blood-Glucose Meter monitoring kit Glucose Meter of Choice - Kit - Dx: Type 2 DM - Controlled E11.9 - Disposable Gloves (DISPOSABLE LATEX-FREE GLOVES) mis 1 Box once every month. - Adhesive Bandage ([place] DRESSING) 6 X 6 bndg Apply to affected area once daily. - Miscellaneous Medical Supply Collagen dressing 2x2 - (more content not included)...[facility]01-13-2025 Telephone encounter Note* Telephone Encounter - Joi Markham APRN.CNP - 03/03/2024 11:31 AM EST The following approved medication requests have been transmitted electronically. Requested Prescriptions Pending Prescriptions Disp Refills ARIPiprazole (ABILIFY) 10 mg tablet 90 tablet 0 Sig: Take 1 tablet by mouth once daily. spironolactone (ALDACTONE) 25 mg tablet 90 tablet 0 Sig: Take 1 tablet by mouth once daily. Joi Markham APRN.CNP [facility]01-13-2025 Miscellaneous Notes* Telephone Encounter - Joi Markham APRN.CNP - 03/03/2024 11:31 AM EST The following approved medication requests have been transmitted electronically. Requested Prescriptions Pending Prescriptions Disp Refills ARIPiprazole (ABILIFY) 10 mg tablet 90 tablet 0 Sig: Take 1 tablet by mouth once daily. spironolactone (ALDACTONE) 25 mg tablet 90 tablet 0 Sig: Take 1 tablet by mouth once daily. Joi Markham APRN.CNP * Telephone Encounter - Emily Garcia RN - 03/03/2024 11:11 AM EST The patient has been identified by name and date of : Yes Caregiver verified no other encounters exist for this prescription request: Yes Caregiver confirmed with patient/requestor that no other refills are due, in the near future, with this provider at this time: Yes The last office visit in the department: 11/09/2023 Does the patient have a future office visit with this provider/department: 03/10/2024 Requested Prescriptions Pending Prescriptions Disp Refills ARIPiprazole (ABILIFY) 10 mg tablet 90 tablet 0 Sig: Take 1 tablet by mouth once daily. spironolactone (ALDACTONE) 25 mg tablet 90 tablet 0 Sig: Take 1 tablet by mouth once daily. Emily Garcia RN March 03, 2024 11:11 AM documented in this encounterPrem[facility]01-13-2025 Telephone encounter Note * Telephone Encounter - Emily Garcia RN - 03/03/2024 11:11 AM EST The patient has been identified by name and date of : Yes Caregiver verified no other encounters exist for this prescription request: Yes Caregiver confirmed with patient/requestor that no other refills are due, in the near future, with this provider at this time: Yes The last office visit in the department: 11/09/2023 Does the patient have a future office visit with this provider/department: 03/10/2024 Requested Prescriptions Pending Prescriptions Disp Refills ARIPiprazole (ABILIFY) 10 mg tablet 90 tablet 0 Sig: Take 1 tablet by mouth once daily. spironolactone (ALDACTONE) 25 mg tablet 90 tablet 0 Sig: Take 1 tablet by mouth once daily. Emily Garcia RN March 03, 2024 11:11 AM [facility]12-24-2024 Telephone encounter Note* Telephone Encounter - Louie Wade MA - 02/12/2024 10:57 AM EST Patient notified of provider message and verbalizes understanding. She had an appointment on 03/10/24 and wishes to discuss pain management further at that visit. Louie Wade MA February 12, 2024 10:58 AM [facility]12-24-2024 Miscellaneous Notes* Telephone Encounter - Louie Wade MA - 02/12/2024 10:57 AM EST Patient notified of provider message and verbalizes understanding. She had an appointment on 03/10/24 and wishes to discuss pain management further at that visit. Louie Wade MA February 12, 2024 10:58 AM * Telephone Encounter - Joi Markham APRN.CNP - 02/12/2024 10:48 AM EST Be careful with the [place]. She is using it every 30 days. This is to be used sparingly. It is very habit-forming. Can have lasting harmful effects. May need to refer to pain management. * Telephone Encounter - Narda Fournier - 02/12/2024 8:17 AM EST Patient requesting medication that is HYDROcodone-acetaminophen (NORCO) 5-325 mg per tablet () Patient last seen 11-09-23 Future visit scheduled: yes PHARMACY: [facility]. documented in this encounterPrem[facility]12-24-2024 Telephone encounter Note * Telephone Encounter - Joi Markham APRN.CNP - 02/12/2024 10:54 AM EST The following approved medication requests have been transmitted electronically. Requested Prescriptions Pending Prescriptions Disp Refills tiZANidine (ZANAFLEX) 4 mg tablet 90 tablet 0 Sig: Take 1 tablet by mouth every 8 hours as needed (muscle spasms). Joi Markham APRN.CNP [facility]12-24-2024 Miscellaneous Notes* Telephone Encounter - Joi Markham APRN.CNP - 02/12/2024 10:54 AM EST The following approved medication requests have been transmitted electronically. Requested Prescriptions Pending Prescriptions Disp Refills tiZANidine (ZANAFLEX) 4 mg tablet 90 tablet 0 Sig: Take 1 tablet by mouth every 8 hours as needed (muscle spasms). Joi Markham APRN.CNP * Telephone Encounter - Narda Fournier - 02/12/2024 8:15 AM EST Prescription Refill Information The patient has been identified by name and date of : Yes Caregiver verified no other encounters exist for this prescription request: Yes Caregiver confirmed with patient/requestor that no other refills are due, in the near future, with this provider at this time: Yes The last office visit in the department: 11-09-23 Does the patient have a future office visit with this provider/department: Yes Requested Prescriptions Pending Prescriptions Disp Refills tiZANidine (ZANAFLEX) 4 mg tablet 90 tablet 0 Sig: Take 1 tablet by mouth every 8 hours as needed (muscle spasms). Narda Fournier February 12, 2024 8:16 AM documented in this encounterPrem[facility]12-24-2024 Telephone encounter Note * Telephone Encounter - Joi Markham APRN.CNP - 02/12/2024 10:48 AM EST Be careful with the [place]. She is using it every 30 days. This is to be used sparingly. It is very habit-forming. Can have lasting harmful effects. May need to refer to pain management. [facility]12-24-2024 Telephone encounter Note* Telephone Encounter - Narda Fournier - 02/12/2024 8:17 AM EST Patient requesting medication that is HYDROcodone-acetaminophen (NORCO) 5-325 mg per tablet () Patient last seen 11-09-23 Future visit scheduled: yes PHARMACY: [facility]. [facility]12-24-2024 Telephone encounter Note* Telephone Encounter - Narda Fournier - 02/12/2024 8:15 AM EST Prescription Refill Information The patient has been identified by name and date of : Yes Caregiver verified no other encounters exist for this prescription request: Yes Caregiver confirmed with patient/requestor that no other refills are due, in the near future, with this provider at this time: Yes The last office visit in the department: 11-09-23 Does the patient have a future office visit with this provider/department: Yes Requested Prescriptions Pending Prescriptions Disp Refills tiZANidine (ZANAFLEX) 4 mg tablet 90 tablet 0 Sig: Take 1 tablet by mouth every 8 hours as needed (muscle spasms). Narda Fournier February 12, 2024 8:16 AM [facility]11-25-2024 Evaluation note* Diagnosis Onset Date Resolution Status Admit Date Immobility acute January 14, 2024 10:30am Morbid obesity with BMI of 7 0 and over, adult acute January 13, 2 024 10:30am Pressure ulcer of upper thigh acute January 14, 2024 10:30am Diabetes mellitus, type II chronic January 14, 2024 10:30am [facility] Work Phone: [phone]) 149-882111-18-2024 Telephone encounter Note* Telephone Encounter - Katherine Ramirez LPN - 01/07/2024 2:27 PM EST Notified. Katherine Ramirez LPN [facility]11-18-2024 Miscellaneous Notes* Telephone Encounter - Katherine Ramirez LPN - 01/07/2024 2:27 PM EST Notified. Katherine Ramirez LPN * Telephone Encounter - Joi Markham APRN.LIZZIE - 01/07/2024 1:52 PM EST Done * Telephone Encounter - Marlee Pennington RN - 01/07/2024 12:11 PM EST Patient calls and is asking for refill for Dexcom Transmitter to be sent to [facility]. Marlee Pennington RN * Telephone Encounter - Sanjay Rondon RN - 01/07/2024 11:10 AM EST The patient has been identified by name and date of : Yes Caregiver verified no other encounters exist for this prescription request: Yes Caregiver confirmed with patient/requestor that no other refills are due, in the near future, with this provider at this time: Yes The last office visit in the department: 11/09/2023 Does the patient have a future office visit with this provider/department: Yes 03/10/2024 Requested Prescriptions Pending Prescriptions Disp Refills potassium chloride SR (MICRO-K) 8 mEq cpER 90 capsule 3 Sig: Take 1 capsule by mouth daily with breakfast. HYDROcodone-acetaminophen (NORCO) 5-325 mg per tablet 60 tablet 0 Sig: Take 1 tablet by mouth two times a day as needed for pain for up to 30 days. tiZANidine (ZANAFLEX) 4 mg tablet 90 tablet 0 Sig: Take 1 tablet by mouth every 8 hours as needed (muscle spasms). Sanjay Rondon RN January 07, 2024 11:12 AM documented in this encounterPrem[facility]11-18-2024 Telephone encounter Note * Telephone Encounter - Joi Markham APRN.CNP - 01/07/2024 1:52 PM EST Done [facility]11-18-2024 Telephone encounter Note* Telephone Encounter - Marlee Pennington RN - 01/07/2024 12:11 PM EST Patient calls and is asking for refill for Dexcom Transmitter to be sent to [facility]. Marlee Pennington RN [facility]11-18-2024 Telephone encounter Note* Telephone Encounter - Sanjay Rondon RN - 01/07/2024 11:10 AM EST The patient has been identified by name and date of : Yes Caregiver verified no other encounters exist for this prescription request: Yes Caregiver confirmed with patient/requestor that no other refills are due, in the near future, with this provider at this time: Yes The last office visit in the department: 11/09/2023 Does the patient have a future office visit with this provider/department: Yes 03/10/2024 Requested Prescriptions Pending Prescriptions Disp Refills potassium chloride SR (MICRO-K) 8 mEq cpER 90 capsule 3 Sig: Take 1 capsule by mouth daily with breakfast. HYDROcodone-acetaminophen (NORCO) 5-325 mg per tablet 60 tablet 0 Sig: Take 1 tablet by mouth two times a day as needed for pain for up to 30 days. tiZANidine (ZANAFLEX) 4 mg tablet 90 tablet 0 Sig: Take 1 tablet by mouth every 8 hours as needed (muscle spasms). Sanjay Rondon RN January 07, 2024 11:12 AM [facility]11-11-2024 Telephone encounter Note* Telephone Encounter - Joi Markham APRN.CNP - 12/31/2023 10:00 AM EST The following approved medication requests have been transmitted electronically. Requested Prescriptions Pending Prescriptions Disp Refills pravastatin (PRAVACHOL) 20 mg tablet 90 tablet 3 Sig: Take 1 tablet by mouth daily at bedtime. furosemide (LASIX) 80 mg tablet 90 tablet 3 Sig: Take 1 tablet by mouth once daily. famotidine (PEPCID) 40 mg tablet 90 tablet 3 Sig: Take 1 tablet by mouth once daily. Cholecalciferol, Vitamin D3, 125 mcg (5,000 unit) cap 90 capsule 3 Sig: Take 1 capsule by mouth once daily. htsqxdwj-hkpt-mxo2-C-gio-bosw (OSTEO BI-FLEX TRIPLE STRENGTH) 750 mg-644 mg- 30 mg-1 mg tab 180 tablet 3 Sig: Take 1 tablet by mouth two times a day. Joi Markham APRN.CNP [facility]11-11-2024 Miscellaneous Notes* Telephone Encounter - Joi Markham APRN.CNP - 12/31/2023 10:00 AM EST The following approved medication requests have been transmitted electronically. Requested Prescriptions Pending Prescriptions Disp Refills pravastatin (PRAVACHOL) 20 mg tablet 90 tablet 3 Sig: Take 1 tablet by mouth daily at bedtime. furosemide (LASIX) 80 mg tablet 90 tablet 3 Sig: Take 1 tablet by mouth once daily. famotidine (PEPCID) 40 mg tablet 90 tablet 3 Sig: Take 1 tablet by mouth once daily. Cholecalciferol, Vitamin D3, 125 mcg (5,000 unit) cap 90 capsule 3 Sig: Take 1 capsule by mouth once daily. ogackdxf-ohsj-pdi9-C-gio-bosw (OSTEO BI-FLEX TRIPLE STRENGTH) 750 mg-644 mg- 30 mg-1 mg tab 180 tablet 3 Sig: Take 1 tablet by mouth two times a day. Joi Markham APRN.CNP * Telephone Encounter - Christal Rasmussen RN - 12/31/2023 8:43 AM EST The patient has been identified by name and date of : Yes Caregiver verified no other encounters exist for this prescription request: Yes Caregiver confirmed with patient/requestor that no other refills are due, in the near future, with this provider at this time: Yes The last office visit in the department: 11/09/2023 Does the patient have a future office visit with this provider/department: Yes 03/10/2024 Requested Prescriptions Pending Prescriptions Disp Refills pravastatin (PRAVACHOL) 20 mg tablet 90 tablet 3 Sig: Take 1 tablet by mouth daily at bedtime. furosemide (LASIX) 80 mg tablet 90 tablet 3 Sig: Take 1 tablet by mouth once daily. famotidine (PEPCID) 40 mg tablet 90 tablet 3 Sig: Take 1 tablet by mouth once daily. Cholecalciferol, Vitamin D3, 125 mcg (5,000 unit) cap 90 capsule 3 Sig: Take 1 capsule by mouth once daily. pqnqkxne-wubg-ipb4-C-gio-bosw (OSTEO BI-FLEX TRIPLE STRENGTH) 750 mg-644 mg- 30 mg-1 mg tab 180 tablet 3 Sig: Take 1 tablet by mouth two times a day. Christal Rasmussen RN documented in this encounterPrem[facility]24 Telephone encounter Note * Telephone Encounter - Christal Rasmussen RN - 12/31/2023 8:43 AM EST The patient has been identified by name and date of : Yes Caregiver verified no other encounters exist for this prescription request: Yes Caregiver confirmed with patient/requestor that no other refills are due, in the near future, with this provider at this time: Yes The last office visit in the department: 11/09/2023 Does the patient have a future office visit with this provider/department: Yes 03/10/2024 Requested Prescriptions Pending Prescriptions Disp Refills pravastatin (PRAVACHOL) 20 mg tablet 90 tablet 3 Sig: Take 1 tablet by mouth daily at bedtime. furosemide (LASIX) 80 mg tablet 90 tablet 3 Sig: Take 1 tablet by mouth once daily. famotidine (PEPCID) 40 mg tablet 90 tablet 3 Sig: Take 1 tablet by mouth once daily. Cholecalciferol, Vitamin D3, 125 mcg (5,000 unit) cap 90 capsule 3 Sig: Take 1 capsule by mouth once daily. bqbqfkie-kfko-ecu2-C-gio-bosw (OSTEO BI-FLEX TRIPLE STRENGTH) 750 mg-644 mg- 30 mg-1 mg tab 180 tablet 3 Sig: Take 1 tablet by mouth two times a day. Christal Rasmussen RN [facility]10-28-2024 Telephone encounter Note* Telephone Encounter - Louie Wade MA - 12/17/2023 4:48 PM EDT Consult faxed to [facility]10-28-2024 Miscellaneous Notes* Telephone Encounter - Louie Wade MA - 12/17/2023 4:48 PM EDT Consult faxed to [facility] * Telephone Encounter - Joi Markham APRN.CNP - 12/17/2023 3:10 PM EDT Consult placed. Please facilitate * Telephone Encounter - Yoko Lopez RN - 12/17/2023 2:44 PM EDT Patient calling to request referral to [facility] for recurrent wounds on the back of her legs. She says she was seen in the past for this. Note on 05/10/23 documents Integ: Pressure sores upper thigh near gluteal fold Advised patient she may need appointment to evaluate. Yoko Lopez, RN documented in this encounterPrem[facility]10-28-2024 Telephone encounter Note * Telephone Encounter - Joi Markham APRN.CNP - 12/17/2023 3:21 PM EDT The following approved medication requests have been transmitted electronically. Requested Prescriptions Pending Prescriptions Disp Refills ARIPiprazole (ABILIFY) 10 mg tablet 90 tablet 0 Sig: Take 1 tablet by mouth once daily. spironolactone (ALDACTONE) 25 mg tablet 90 tablet 0 Sig: Take 1 tablet by mouth once daily. Joi Markham APRN.CNP [facility]10-28-2024 Miscellaneous Notes* Telephone Encounter - Joi Markham APRN.CNP - 12/17/2023 3:21 PM EDT The following approved medication requests have been transmitted electronically. Requested Prescriptions Pending Prescriptions Disp Refills ARIPiprazole (ABILIFY) 10 mg tablet 90 tablet 0 Sig: Take 1 tablet by mouth once daily. spironolactone (ALDACTONE) 25 mg tablet 90 tablet 0 Sig: Take 1 tablet by mouth once daily. Joi Markham APRN.CNP * Telephone Encounter - Estefani Bell LPN - 12/17/2023 2:01 PM EDT Please check refills for Abilify. Prescription Refill Information The patient has been identified by name and date of : Yes Caregiver verified no other encounters exist for this prescription request: Yes Caregiver confirmed with patient/requestor that no other refills are due, in the near future, with this provider at this time: Yes The last office visit in the department: 11/09/23 Does the patient have a future office visit with this provider/department: Yes 03/10/24 Requested Prescriptions Pending Prescriptions Disp Refills ARIPiprazole (ABILIFY) 10 mg tablet 90 tablet 0 Sig: Take 1 tablet by mouth once daily. spironolactone (ALDACTONE) 25 mg tablet 90 tablet 3 Sig: Take 1 tablet by mouth once daily. Estefani Bell LPN December 17, 2023 2:17 PM documented in this encounterPrem[facility]10-28-2024 Telephone encounter Note * Telephone Encounter - Joi Markham APRN.CNP - 12/17/2023 3:10 PM EDT Consult placed. Please facilitate [facility] Telephone encounter Note* Telephone Encounter - Yoko Lopez RN - 12/17/2023 2:44 PM EDT Patient calling to request referral to [facility] for recurrent wounds on the back of her legs. She says she was seen in the past for this. Note on 05/10/23 documents Integ: Pressure sores upper thigh near gluteal fold Advised patient she may need appointment to evaluate. Yoko Lopez RN [facility]10-28-2024 Telephone encounter Note* Telephone Encounter - Estefani Bell LPN - 12/17/2023 2:01 PM EDT Please check refills for Abilify. Prescription Refill Information The patient has been identified by name and date of : Yes Caregiver verified no other encounters exist for this prescription request: Yes Caregiver confirmed with patient/requestor that no other refills are due, in the near future, with this provider at this time: Yes The last office visit in the department: 11/09/23 Does the patient have a future office visit with this provider/department: Yes 03/10/24 Requested Prescriptions Pending Prescriptions Disp Refills ARIPiprazole (ABILIFY) 10 mg tablet 90 tablet 0 Sig: Take 1 tablet by mouth once daily. spironolactone (ALDACTONE) 25 mg tablet 90 tablet 3 Sig: Take 1 tablet by mouth once daily. Estefani Bell LPN December 17, 2023 2:17 PM [facility]09-[facility] History of Present illness Narrative* Joi Markham APRN.CNP - 11/13/2023 8:19 AM EDT Urine tox screen was normal. [place] was renewed to use only sparingly. documented in this encounterPremier [facility]09-20-2024 Instructions* Patient Instructions* oJi Markham APRN.CNP - 11/09/2023 1:27 PM EDT 1) Urine tox screen- hand picker kit downstairs 2) [place] filled once urine done 3) Increase topiramate 25 mg 2 x day 4) Flu shot today 5) [place] vaccine today & in 2-6 months 6) Follow up in 4 months documented in this encounterPrem[facility]09-20-2024 History of Present illness Narrative* Joi Markham APRN.CNP - 11/09/2023 1:09 PM EDT This is a 63 year old female who presents today with: Patient presents with: Follow Up: 6 week f/u HISTORY OF PRESENT ILLNESS: Wilton Khan is a 63 year old female. Patient presents with: Follow Up: 6 week f/u Shingles area healed. Only 1 area 1 cm by 0.5 cm that is red. No pain in shingles site. Pt. Squirming in pain from legs throbbing. Mostly knees. Known OA. Here to get shingles vaccine and flu shot. No fever or chills. In motorized wheelchair. Walks with a walker at home. BSS running 80-100. She decreased insulin to 30 units. Struggling with weight loss. Taking bauman topiramate for appetite and gabapentin for pain. Dexcom leaving sores. PAST MEDICAL HISTORY: PAST MEDICAL HISTORY Diagnosis Date Abnormal glandular Papanicolaou smear of cervix 05/30/05 ABNL GLANDULAR PAP SMEAR CERVIX Acute gastritis without mention of hemorrhage Anxiety state, unspecified Arrhythmia Chronic cholecystitis Chronic obstructive pulmonary disease (COPD) ([facility]) Congestive heart failure ([facility]) 10/03/2011 Diabetes ([facility]) diabetes II 2010 Diaphragmatic hernia without mention of obstruction or gangrene Dysthymic disorder Depression (non-psychotic) Esophageal reflux Essential hypertension, benign Generalized OA Hyperprolactinemia ([facility]) 10/13/2005 Localized osteoarthrosis not specified whether primary or secondary, lower leg Major depressive disorder, recurrent episode Mucous polyp of cervix 07/19/05 Other and unspecified anterior pituitary hyperfunction ([facility]) 10/13/05 elevated prolactin level-was normal in 2011 PMH - PAST MEDICAL HISTORY OF sleep apnea PMH - PAST MEDICAL HISTORY OF sleep apnea SVT (supraventricular tachycardia) ([facility]) 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 Type 2 diabetes mellitus without complication, with long-term current use of insulin ([facility]) 12/22/2013 PAST SURGICAL HISTORY Procedure Laterality Date BIOPSY CERVIX SINGLE/MULT/EXCISION OF LESION SPX 07/19/2005 endocervical polyp COLONOSCOPY FLX DX W/COLLJ SPEC WHEN PFRMD 01/09/2012 Colonoscopy repeat 10 years COLPOSCOPY CERVIX UPPER/ADJACENT VAGINA Colposcopy EGD TRANSORAL BIOPSY SINGLE/MULTIPLE 01/16/2007 ESOPHAGOGASTRODUODENOSCOPY TRANSORAL DIAGNOSTIC 01/09/2012 EGD HERNIA REPAIR HX 11/2015 ventral HYSTEROSCOPY DX 12/17/2014 D&C LAPS SURG CHOLECYSTECTOMY W/CHOLANGIOGRAPHY 05/15/2008 PARATHYROID ALLERGIES Lyrica [Pregabalin], Accupril [Quinapril Hcl], Actos [Pioglitazone], Amlodipine, Atenolol, Atorvastatin, Celebrex [Celecoxib], Effexor [Venlafaxine Hcl], Januvia [Sitagliptin], Metoprolol, Mobic [Meloxicam], Prozac [Fluoxetine Hcl], Remeron [Mirtazapine], Risperidone, Seroquel [QuetiapineFumarate], Trulicity [Dulaglutide], Vancomycin, Vioxx [Rofecoxib], and Wellbutrin [Bupropion Hcl] MEDICATIONS Current Outpatient Medications Medication Sig traZODone (DESYREL) 100 mg tablet Take 1 tablet by mouth daily at bedtime. Blood-Glucose Transmitter (DEXCOM G6 TRANSMITTER) jessica Apply new transmitter every 90 days. Clean transmitter with an alcohol swab with each sensor change. polyethylene glycol 3350 17 gram/dose powder Take 17 g by mouth once daily. gabapentin (NEURONTIN) 600 mg tablet Take 1 tablet by mouth three times a day for 180 days. topiramate (TOPAMAX) 25 mg tablet Take 1 tablet by mouth daily at bedtime. ibuprofen (MOTRIN) 800 mg tablet Take 1 tablet by mouth every 8 hours as needed for pain. Take withfood. rOPINIRole (REQUIP) 0.25 mg tablet Take 1 tablet by mouth daily at bedtime. acetaminophen (ARTHRITIS PAIN RELIEF) 650 mg CR tablet Take 2 tablets by mouth every 8 hours as needed for pain. Not in same 8h period as [place] (hydrocodone Tylenol) blood sugar diagnostic (BLOOD GLUCOSE TEST) test strip Test blood sugars up to 4 times daily as directed. Dx: Type 2 DM - Controlled E11.9 Insulin: Yes. Blood-Glucose Sensor (DEXCOM G6 SENSOR) jessica Apply new sensor every 10 days to abdomen. HYDROcodone-acetaminophen (NORCO) 5-325 mg per tablet Take 1 tablet by mouth two times a day as needed for pain for up to 30 days. hydrOXYzine pamoate (VISTARIL) 25 mg capsule Take 1 capsule by mouth three times a day as needed. DULoxetine (CYMBALTA) 60 mg capsule Take 1 capsule by mouth once daily. ARIPiprazole (ABILIFY) 10 mg tablet Take 1 tablet by mouth once daily. insulin glargine (LANTUS SOLOSTAR U-100 INSULIN) 100 unit/mL (3 mL) Inject 35 Units subcutaneously every morning. Blood-Glucose Meter monitoring kit Glucose Meter of Choice - Kit - Dx: Type 2 DM - Controlled E11.9 Blood-Glucose Meter,Continuous (DEXCOM G6 ADVANCED REGISTERED NURSE) misc Use to check blood sugar at least 4 times a day. Disposable Gloves (DISPOSABLE LATEX-FREE GLOVES) misc 1 Box once every month. famotidine (PEPCID) 40 mg tablet Take 1 tablet by mouth once daily. jhnzzwer-umix-vzh3-C-gio-bosw (OSTEO BI-FLEX TRIPLE STRENGTH) 750 mg-644 mg- 30 mg-1 mg tab Take 1tablet by mouth two times a day. spironolactone (ALDACTONE) 25 mg tablet Take 1 tablet by mouth once daily. potassium chloride SR (MICRO-K) 8 mEq cpER Take 1 capsule by mouth daily with breakfast. Cholecalciferol, Vitamin D3, 125 mcg (5,000 unit) cap Take 1 capsule by mouth once daily. pravastatin (PRAVACHOL) 20 mg tablet Take 1 tablet by mouth daily at bedtime. furosemide (LASIX) 80 mg tablet Take 1 tablet by mouth once daily. Adhesive Bandage ([place] DRESSING) 6 X 6 bndg Apply to affected area once daily. Blood-Glucose Meter monitoring kit Glucose Meter of Choice - Kit - Dx: Type 2 DM - Controlled E11.9Use twice daily as directed ascorbic acid (VITAMIN C ORAL) Take 1 tablet by mouth once daily. tiZANidine (ZANAFLEX) 4 mg tablet Take 1 tablet by mouth every 8 hours as needed (muscle spasms). gabapentin (NEURONTIN) 100 mg capsule Take 1 capsule by mouth three times a day for 14 days. Take the 100 mg with your 600 mg tablets TID. Insulin Maljamar, Disposable, (BD ULTRA-FINE MADI PEN NEEDLE) 32 gauge x 32 Use one needle for each dose. 2/day. Lancets Test blood sugar(s) up to 4 times daily. Dx: Type 2 DM - Controlled E11.9 Insulin: Yes Miscellaneous Medical Supply Collagen dressing 2x2 No current facility-administered medications for this visit. FAMILY HISTORY Problem Relation Age of Onset Hypertension Mother Heart Mother concha stroke Diabetes Mother Stroke Mother Massive- Arthritis Mother Osteoarthritis Hypertension Father COPD Father Hypertension Sister Arthritis Sister Hypertension Sister Diabetes Sister Arthritis Sister Hypertension Sister Diabetes Sister Arthritis Sister Hypertension Sister Diabetes Sister other (Rheumatoid Arthritis) Sister Heart Brother Triple Bypass Heart Brother Heart Brother Heart Maternal Aunt Heart Maternal Uncle Social History Tobacco Use Smoking status: Former Current packs/day: 0.00 Average packs/day: 1 pack/day for 15.0 years (15.0 ttl pk-yrs) Types: Cigarettes Start date: 12/21/1979 Quit date: 12/20/1994 Years since quittin.9 Smokeless tobacco: Never Vaping Use Vaping status: Never Used Substance Use Topics Alcohol use: No Drug use: No EXAM: BP 126/74 Pulse 68 Resp 20 LMP 12/11/2008 SpO2 96% PHYSICAL EXAM: Physical Exam Vitals reviewed. Constitutional: Appearance: She is obese. HENT: Head: Normocephalic. Neck: Comments: Thick, full neck Cardiovascular: Rate and Rhythm: Normal rate and regular rhythm. Pulses: Normal pulses. Heart sounds: Normal heart sounds. Comments: Distant heart sounds Pulmonary: Effort: Pulmonary effort is normal. Breath sounds: Normal breath sounds. Abdominal: General: There is no distension. Palpations: Abdomen is soft. Tenderness: There is no abdominal tenderness. There is no guarding or rebound. Comments: Hypoactive HEATHER Musculoskeletal: Comments: Immobile- presents in reclining wheelchair Skin: General: Skin is warm and dry. Findings: Lesion present. Comments: Right upper arm with 2 scabbed over areas, soft, no redness or drainage from Dexcom 6 Neurological: General: No focal deficit present. Mental Status: She is alert and oriented to person, place, and time. Psychiatric: Mood and Affect: Mood normal. Behavior: Behavior normal. LABS: need urine tox screen ASSESSMENT/PLAN: 1. DDD (degenerative disc disease), lumbar - ICD9: 722.52, ICD10: M51.36 Chronic low back pain - Patient given instructions return tox screen before [place] can be renewed. OARRS completed - TOXICOLOGY SCREEN, ROUTINE URINE 2. DDD (degenerative disc disease), cervical - ICD9: 722.4, ICD10: M50.30 Ongoing On gabapentin 600 mg 3 x day 3. Lumbar facet arthropathy - ICD9: 721.3, ICD10: M47.816 Ongoing 4. Diffuse myofascial pain syndrome - ICD9: 729.1, ICD10: M79.18 On gabapentin - TIZANIDINE 4 MG TABLET 5. Pain disorder with psychological factors - ICD9: 307.80, ICD10: F45.42 On gabapentin and topiramate (to help with appetite) 6. Encounter for immunization - ICD9: V03.89, ICD10: Z23 - [employer] [employer] INSTRUCTIONS - INFLUENZA VACCINE, AGE 6MO-64YR, TRIVALENT (AFLURIA, FLULAVAL, FLUVIRIN, FLUZONE) 7. Anxiety state - ICD9: 300.00, ICD10: F41.1 Stable - DULOXETINE 60 MG CAPSULE,DELAYED RELEASE 8. Super obesity - ICD9: 278.00, ICD10: E66.9 Weight decreasing - Increase Topiramate - TOPIRAMATE 25 MG TABLET 2 x day 9. Diabetes mellitus type 2 with ketoacidosis, uncontrolled (HCC) - ICD9: 250.12, ICD10: E11.10 Controlled - LANTUS SOLOSTAR U-100 INSULIN 100 UNIT/ML (3 ML) SUBCUTANEOUS PEN- decreased to 30 units 10. Herpes zoster keratitis - ICD9: 053.21, ICD10: B02.33 Healed - get shingles vaccine Discussed treatment plan and patient voices understanding. Patient's questions answered appropriately. Medications and potential side effects were discussed and patient voices understanding. Return to the office as scheduled or as needed for worsening/no improvement. Joi Markham APRN.CNP documented in this encounterPrem[facility]08-23-2024 Telephone encounter Note * Telephone Encounter - Joi Markham APRN.CNP - 10/12/2023 3:32 PM EDT The following approved medication requests have been transmitted electronically. Requested Prescriptions Pending Prescriptions Disp Refills traZODone (DESYREL) 100 mg tablet 90 tablet 3 Sig: Take 1 tablet by mouth daily at bedtime. Joi Markham APRN.CNP [facility]08-23-2024 Miscellaneous Notes* Telephone Encounter - Joi Markham APRN.CNP - 10/12/2023 3:32 PM EDT The following approved medication requests have been transmitted electronically. Requested Prescriptions Pending Prescriptions Disp Refills traZODone (DESYREL) 100 mg tablet 90 tablet 3 Sig: Take 1 tablet by mouth daily at bedtime. Joi Markham APRN.CNP * Telephone Encounter - Brittany Valencia LPN - 10/12/2023 3:29 PM EDT Prescription Refill Information The patient has been identified by name and date of : Yes Caregiver verified no other encounters exist for this prescription request: Yes Caregiver confirmed with patient/requestor that no other refills are due, in the near future, with this provider at this time: Yes The last office visit in the department: 09/28/23 Does the patient have a future office visit with this provider/department: Yes Requested Prescriptions Pending Prescriptions Disp Refills traZODone (DESYREL) 100 mg tablet 90 tablet 3 Sig: Take 1 tablet by mouth daily at bedtime. Brittany Valencia LPN October 12, 2023 3:30 PM documented in this encounterPrem[facility]08-23-2024 Telephone encounter Note * Telephone Encounter - Brittany Valencia LPN - 10/12/2023 3:29 PM EDT Prescription Refill Information The patient has been identified by name and date of : Yes Caregiver verified no other encounters exist for this prescription request: Yes Caregiver confirmed with patient/requestor that no other refills are due, in the near future, with this provider at this time: Yes The last office visit in the department: 09/28/23 Does the patient have a future office visit with this provider/department: Yes Requested Prescriptions Pending Prescriptions Disp Refills traZODone (DESYREL) 100 mg tablet 90 tablet 3 Sig: Take 1 tablet by mouth daily at bedtime. Brittany Valencia LPN October 12, 2023 3:30 PM [facility]08-09-2024 Instructions* Patient Instructions* Joi Markham APRN.CNP - 09/28/2023 1:38 PM EDT 1) decrease gabapentin to 600 mg 3 xday 2) miralax for constipation (consider prune juice, apple cider) 3) follow up in 4-6 weeks documented in this encounterPrem[facility]08-09-2024 History of Present illness Narrative* Joi Markham APRN.CNP - 09/28/2023 1:21 PM EDT This is a 63 year old female who presents today with: Patient presents with: Weight Management: Medication follow up Shingles: Follow up HISTORY OF PRESENT ILLNESS: Wilton Khan is a 63 year old female. Patient presents with: Weight Management: Medication follow up Shingles: Follow up Shingles drying up but still very red, some eschar white. On gabapentin. Pain 2-3. Calmed down a lot. Sore. Some numbness. Drainage noted on clothing. Finished valtrex. No fevers. PAST MEDICAL HISTORY: PAST MEDICAL HISTORY 05/30/05: Abnormal glandular Papanicolaou smear of cervix Comment: ABNL GLANDULAR PAP SMEAR CERVIX No date: Acute gastritis without mention of hemorrhage No date: Anxiety state, unspecified No date: Arrhythmia No date: Chronic cholecystitis No date: Chronic obstructive pulmonary disease (COPD) ([facility]) 10/03/2011: Congestive heart failure ([facility]) No date: Diabetes ([facility]) 2010: diabetes II No date: Diaphragmatic hernia without mention of obstruction or gangrene No date: Dysthymic disorder Comment: Depression (non-psychotic) No date: Esophageal reflux No date: Essential hypertension, benign No date: Generalized OA 10/13/2005: Hyperprolactinemia ([facility]) No date: Localized osteoarthrosis not specified whether primary or secondary, lower leg No date: Major depressive disorder, recurrent episode 07/19/05: Mucous polyp of cervix 10/13/05: Other and unspecified anterior pituitary hyperfunction ([facility]) Comment: elevated prolactin level-was normal in 2011 No date: PMH - PAST MEDICAL HISTORY OF Comment: sleep apnea No date: PMH - PAST MEDICAL HISTORY OF Comment: sleep apnea No date: SVT (supraventricular tachycardia) (HCC) No date: Tremor Comment: placed 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 12/22/2013: Type 2 diabetes mellitus without complication, with long- term current use of insulin (HCC) PAST SURGICAL HISTORY 07/19/2005: BIOPSY CERVIX SINGLE/MULT/EXCISION OF LESION SPX Comment: endocervical polyp 01/09/2012: COLONOSCOPY FLX DX W/COLLJ SPEC WHEN PFRMD Comment: Colonoscopy repeat 10 years No date: COLPOSCOPY CERVIX UPPER/ADJACENT VAGINA Comment: Colposcopy 01/16/2007: EGD TRANSORAL BIOPSY SINGLE/MULTIPLE 01/09/2012: ESOPHAGOGASTRODUODENOSCOPY TRANSORAL DIAGNOSTIC Comment: EGD 11/2015: HERNIA REPAIR HX Comment: ventral 12/17/2014: HYSTEROSCOPY DX Comment: D&C 05/15/2008: LAPS SURG CHOLECYSTECTOMY W/CHOLANGIOGRAPHY No date: PARATHYROID ALLERGIES Lyrica [Pregabalin], Accupril [Quinapril Hcl], Actos [Pioglitazone], Amlodipine, Atenolol, Atorvastatin, Celebrex [Celecoxib], Effexor [Venlafaxine Hcl], Januvia [Sitagliptin], Metoprolol, Mobic [Meloxicam], Prozac [Fluoxetine Hcl], Remeron [Mirtazapine], Risperidone, Seroquel [QuetiapineFumarate], Trulicity [Dulaglutide], Vancomycin, Vioxx [Rofecoxib], and Wellbutrin [Bupropion Hcl] MEDICATIONS Current Outpatient Medications Medication Sig gabapentin (NEURONTIN) 100 mg capsule Take 1 capsule by mouth three times a day for 14 days. Take the 100 mg with your 600 mg tablets TID. topiramate (TOPAMAX) 25 mg tablet Take 1 tablet by mouth daily at bedtime. ibuprofen (MOTRIN) 800 mg tablet Take 1 tablet by mouth every 8 hours as needed for pain. Take withfood. rOPINIRole (REQUIP) 0.25 mg tablet Take 1 tablet by mouth daily at bedtime. acetaminophen (ARTHRITIS PAIN RELIEF) 650 mg CR tablet Take 2 tablets by mouth every 8 hours as needed for pain. Not in same 8h period as [place] (hydrocodone Tylenol) blood sugar diagnostic (BLOOD GLUCOSE TEST) test strip Test blood sugars up to 4 times daily as directed. Dx: Type 2 DM - Controlled E11.9 Insulin: Yes. Blood-Glucose Sensor (DEXCOM G6 SENSOR) jessica Apply new sensor every 10 days to abdomen. HYDROcodone-acetaminophen (NORCO) 5-325 mg per tablet Take 1 tablet by mouth two times a day as needed for pain for up to 30 days. hydrOXYzine pamoate (VISTARIL) 25 mg capsule Take 1 capsule by mouth three times a day as needed. Insulin Maljamar, Disposable, (BD ULTRA-FINE MADI PEN NEEDLE) 32 gauge x Use one needle for each dose. 2/day. Lancets Test blood sugar(s) up to 4 times daily. Dx: Type 2 DM - Controlled E11.9 Insulin: Yes tiZANidine (ZANAFLEX) 4 mg tablet Take 1 tablet by mouth every 8 hours as needed (muscle spasms). DULoxetine (CYMBALTA) 60 mg capsule Take 1 capsule by mouth once daily. ARIPiprazole (ABILIFY) 10 mg tablet Take 1 tablet by mouth once daily. insulin glargine (LANTUS SOLOSTAR U-100 INSULIN) 100 unit/mL (3 mL) Inject 35 Units subcutaneously every morning. Blood-Glucose Meter monitoring kit Glucose Meter of Choice - Kit - Dx: Type 2 DM - Controlled E11.9 Blood-Glucose Meter,Continuous (DEXCOM G6 ADVANCED REGISTERED NURSE) misc Use to check blood sugar at least 4 times a day. Disposable Gloves (DISPOSABLE LATEX-FREE GLOVES) misc 1 Box once every month. famotidine (PEPCID) 40 mg tablet Take 1 tablet by mouth once daily. qbcvgpjb-zscj-cgu6-C-gio-bosw (OSTEO BI-FLEX TRIPLE STRENGTH) 750 mg-644 mg- 30 mg-1 mg tab Take 1tablet by mouth two times a day. spironolactone (ALDACTONE) 25 mg tablet Take 1 tablet by mouth once daily. potassium chloride SR (MICRO-K) 8 mEq cpER Take 1 capsule by mouth daily with breakfast. Cholecalciferol, Vitamin D3, 125 mcg (5,000 unit) cap Take 1 capsule by mouth once daily. pravastatin (PRAVACHOL) 20 mg tablet Take 1 tablet by mouth daily at bedtime. furosemide (LASIX) 80 mg tablet Take 1 tablet by mouth once daily. Adhesive Bandage ([place] DRESSING) 6 X 6 bndg Apply to affected area once daily. Miscellaneous [employer] Supply Collagen dressing 2x2 Blood-Glucose Meter monitoring kit Glucose Meter of Choice - Kit - Dx: Type 2 DM - Controlled E11.9Use twice daily as directed ascorbic acid (VITAMIN C ORAL) Take 1 tablet by mouth once daily. Blood-Glucose Transmitter (DEXCOM G6 TRANSMITTER) jessica Apply new transmitter every 90 days. Clean transmitter with an alcohol swab with each sensor change. polyethylene glycol 3350 17 gram/dose powder Take 17 g by mouth once daily. gabapentin (NEURONTIN) 600 mg tablet Take 1 tablet by mouth three times a day for 90 days. No current facility-administered medications for this visit. FAMILY HISTORY Problem Relation Age of Onset Hypertension Mother Heart Mother concha stroke Diabetes Mother Stroke Mother Massive- Arthritis Mother Osteoarthritis Hypertension Father COPD Father Hypertension Sister Arthritis Sister Hypertension Sister Diabetes Sister Arthritis Sister Hypertension Sister Diabetes Sister Arthritis Sister Hypertension Sister Diabetes Sister other (Rheumatoid Arthritis) Sister Heart Brother Triple Bypass Heart Brother Heart Brother Heart Maternal Aunt Heart Maternal Uncle Social History Tobacco Use Smoking status: Former Packs/day: 1.00 Years: 15.00 Additional pack years: 0.00 Total pack years: 15.00 Types: Cigarettes Quit date: 12/20/1994 Years since quittin.7 Smokeless tobacco: Never Vaping Use Vaping Use: Never used Substance Use Topics Alcohol use: No Drug use: No EXAM: BP 128/80 Pulse 78 Wt (!) 166 kg (366 lb) LMP 12/11/2008 SpO2 96% BMI 73.92 kg/m PHYSICAL EXAM: Physical Exam Vitals reviewed. Constitutional: Appearance: Normal appearance. HENT: Head: Normocephalic. Skin: General: Skin is warm and dry. Comments: Right abdomen, side and flank area with drying blisters in various stages of drying. Neurological: Mental Status: She is alert. LABS: ASSESSMENT/PLAN: 1. Controlled type 2 diabetes mellitus without complication, with long-term current use of insulin (HCC) - ICD9: 250.00, V58.67, ICD10: E11.9, Z79.4 - Controlled - Stable on current medication - DEXCOM G6 TRANSMITTER DEVICE 2. Chronic constipation - ICD9: 564.00, ICD10: K59.09 Worse with extra gabapentin, will reduce gabapentin to 600 mg 3 x day - POLYETHYLENE GLYCOL 3350 17 GRAM/DOSE ORAL POWDER 3. Herpes zoster without complication - ICD9: 053.9, ICD10: B02.9 - Decrease gabapentin back to 600 mg 3 x day - Return in 4-6 weeks for recheck and consideration of shingles vaccine 4. Class 3 severe obesity with body mass index (BMI) greater than or equal to 70 in adult, unspecified obesity type, unspecified whether serious comorbidity present (HCC) - ICD9: 278.01, V85.45, ICD10: E66.01, Z68.45 (primary diagnosis) Weight decreasing - Would like to increase topiramate, will await return visit so constipation can resolve Discussed treatment plan and patient voices understanding. Patient's questions answered appropriately. Medications and potential side effects were discussed and patient voices understanding. Return to the office as scheduled or as needed for worsening/no improvement. Joi Markham APRN.CNP documented in this encounterPrem[facility]07-26-[facility]24 Telephone encounter Note * Telephone Encounter - Leida Nava MA - 09/14/2023 9:25 AM EDT Pt notified. She did have a BM this morning. Leida Nava MA [facility]07-26-2024 Miscellaneous Notes* Telephone Encounter - Leida Nava MA - 09/14/2023 9:25 AM EDT Pt notified. She did have a BM this morning. Leida Nava MA * Telephone Encounter - Joi Markham APRN.CNP - 09/13/2023 5:14 PM EDT Try warm prune juice or apple cider. Could consider a bottle of magnesium citrate. Ask her pharmacist. Let me know if these do not work. * Telephone Encounter - Micaela Reis LPN - 09/13/2023 4:13 PM EDT Patient calling she was in yesterday and saw Clarita Mathews MATERNITY NURSE for shingles. She had forgotten to mention that her bowels have not been moving much at all. she can not remember the date of her last bowel movement, but it was small. Patient said no bowel movement for past 4 days. This morning she took Miralax, ate all bran and took 2 Dulcolax tablets. She was going to take Miralax again tonight. She is not passing much flatus and is having abdominal cramping. Which I told her is the dulcolax tablets starting. Patient is asking if anything else she should be doing? David Otto is out and Anastasiya and Dr Herbert also. Patient uses [facility] if needed. Please advise documented in this encounterPrem[facility]07-25-2024 Telephone encounter Note * Telephone Encounter - Joi Markham APRN.CNP - 09/13/2023 5:14 PM EDT Try warm prune juice or apple cider. Could consider a bottle of magnesium citrate. Ask her pharmacist. Let me know if these do not work. [facility]07-25-2024 Telephone encounter Note* Telephone Encounter - Micaela Reis LPN - 09/13/2023 4:13 PM EDT Patient calling she was in yesterday and saw Clarita Mathews MATERNITY NURSE for shingles. She had forgotten to mention that her bowels have not been moving much at all. she can not remember the date of her last bowel movement, but it was small. Patient said no bowel movement for past 4 days. This morning she took Miralax, ate all bran and took 2 Dulcolax tablets. She was going to take Miralax again tonight. She is not passing much flatus and is having abdominal cramping. Which I told her is the dulcolax tablets starting. Patient is asking if anything else she should be doing? David Otto is out and Anastasiya and Dr Herbert also. Patient uses [facility] pharmacy if needed. Please advise [facility]07-24-2024 Instructions* Patient Instructions* Clarita Mathews APRN.LIZZIE - 09/12/2023 12:08 PM EDT Start the Valtrex three times daily for 14 days Take the extra 100 mg gabapentin tablet with your 600 mg tablets three times daily You can take the percocet every 8 hours as needed for pain Do not take the norco while you are taking percocet! Follow up with Dr. Herbert in 1 week documented in this encounterPremier [facility]07-24-2024 History of Present illness Narrative* Clarita Mathews APRN.CNP - 09/12/2023 11:39 AM EDT This is a 63 year old female who presents today with: Patient presents with: Derm Problem: Right side of back, side and abdomen HISTORY OF PRESENT ILLNESS: Wilton Khan is a 63 year old female. Patient presents with: Derm Problem: Right side of back, side and abdomen Pt presents with pain in right side and back Pt reports blistering, she is concerned for shingles Pt has noticed pain since Pt noticed blisters forming on Sunday, started on her R flank and has traveled to the back and front of her abdomen Pt refers to new blisters forming today and that the rash continues to spread Pt has never had shingles before Pt does not have Shingrix vaccine Pt reports that this is the worst pain she has ever had Pt describes pain as a deep sharp, burning consistent 11/28 Pt reports that rash is itching Pt has tried norco, ibuprofen. The norco provides some relief but not completely. No one around pt with similar illness Pt does have a history of chicken pox when she was a child No fevers/chills Pt reports body aches but has a hx of arthritis No issues with bowel/bladder Pt reports no other rashes PAST MEDICAL HISTORY: PAST MEDICAL HISTORY Diagnosis Date Abnormal glandular Papanicolaou smear of cervix 05/30/05 ABNL GLANDULAR PAP SMEAR CERVIX Acute gastritis without mention of hemorrhage Anxiety state, unspecified Arrhythmia Chronic cholecystitis Chronic obstructive pulmonary disease (COPD) ([facility]) Congestive heart failure ([facility]) 10/03/2011 Diabetes ([facility]) diabetes II 2010 Diaphragmatic hernia without mention of obstruction or gangrene Dysthymic disorder Depression (non-psychotic) Esophageal reflux Essential hypertension, benign Generalized OA Hyperprolactinemia ([facility]) 10/13/2005 Localized osteoarthrosis not specified whether primary or secondary, lower leg Major depressive disorder, recurrent episode Mucous polyp of cervix 07/19/05 Other and unspecified anterior pituitary hyperfunction ([facility]) 10/13/05 elevated prolactin level-was normal in 2011 PMH - PAST MEDICAL HISTORY OF sleep apnea PMH - PAST MEDICAL HISTORY OF sleep apnea SVT (supraventricular tachycardia) ([facility]) 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 Type 2 diabetes mellitus without complication, with long-term current use of insulin ([facility]) 12/22/2013 PAST SURGICAL HISTORY Procedure Laterality Date BIOPSY CERVIX SINGLE/MULT/EXCISION OF LESION SPX 07/19/2005 endocervical polyp COLONOSCOPY FLX DX W/COLLJ SPEC WHEN PFRMD 01/09/2012 Colonoscopy repeat 10 years COLPOSCOPY CERVIX UPPER/ADJACENT VAGINA Colposcopy EGD TRANSORAL BIOPSY SINGLE/MULTIPLE 01/16/2007 ESOPHAGOGASTRODUODENOSCOPY TRANSORAL DIAGNOSTIC 01/09/2012 EGD HERNIA REPAIR HX 11/2015 ventral HYSTEROSCOPY DX 12/17/2014 D&C LAPS SURG CHOLECYSTECTOMY W/CHOLANGIOGRAPHY 05/15/2008 PARATHYROID ALLERGIES Lyrica [Pregabalin], Accupril [Quinapril Hcl], Actos [Pioglitazone], Amlodipine, Atenolol, Atorvastatin, Celebrex [Celecoxib], Effexor [Venlafaxine Hcl], Januvia [Sitagliptin], Metoprolol, Mobic [Meloxicam], Prozac [Fluoxetine Hcl], Remeron [Mirtazapine], Risperidone, Seroquel [QuetiapineFumarate], Trulicity [Dulaglutide], Vancomycin, Vioxx [Rofecoxib], and Wellbutrin [Bupropion Hcl] MEDICATIONS Current Outpatient Medications Medication Sig topiramate (TOPAMAX) 25 mg tablet Take 1 tablet by mouth daily at bedtime. ibuprofen (MOTRIN) 800 mg tablet Take 1 tablet by mouth every 8 hours as needed for pain. Take withfood. rOPINIRole (REQUIP) 0.25 mg tablet Take 1 tablet by mouth daily at bedtime. acetaminophen (ARTHRITIS PAIN RELIEF) 650 mg CR tablet Take 2 tablets by mouth every 8 hours as needed for pain. Not in same 8h period as [place] (hydrocodone Tylenol) blood sugar diagnostic (BLOOD GLUCOSE TEST) test strip Test blood sugars up to 4 times daily as directed. Dx: Type 2 DM - Controlled E11.9 Insulin: Yes. Blood-Glucose Sensor (DEXCOM G6 SENSOR) jessica Apply new sensor every 10 days to abdomen. HYDROcodone-acetaminophen (NORCO) 5-325 mg per tablet Take 1 tablet by mouth two times a day as needed for pain for up to 30 days. hydrOXYzine pamoate (VISTARIL) 25 mg capsule Take 1 capsule by mouth three times a day as needed. Insulin Maljamar, Disposable, (BD ULTRA-FINE MADI PEN NEEDLE) 32 gauge x Use one needle for each dose. 2/day. Lancets Test blood sugar(s) up to 4 times daily. Dx: Type 2 DM - Controlled E11.9 Insulin: Yes tiZANidine (ZANAFLEX) 4 mg tablet Take 1 tablet by mouth every 8 hours as needed (muscle spasms). DULoxetine (CYMBALTA) 60 mg capsule Take 1 capsule by mouth once daily. ARIPiprazole (ABILIFY) 10 mg tablet Take 1 tablet by mouth once daily. traZODone (DESYREL) 100 mg tablet Take 1 tablet by mouth daily at bedtime. gabapentin (NEURONTIN) 600 mg tablet Take 1 tablet by mouth three times a day for 90 days. insulin glargine (LANTUS SOLOSTAR U-100 INSULIN) 100 unit/mL (3 mL) Inject 35 Units subcutaneously every morning. Blood-Glucose Meter monitoring kit Glucose Meter of Choice - Kit - Dx: Type 2 DM - Controlled E11.9 Blood-Glucose Meter,Continuous (DEXCOM G6 ADVANCED REGISTERED NURSE) [facility] [place] to check blood sugar at least 4 times a day. Blood-Glucose Transmitter (DEXCOM G6 TRANSMITTER) jessica Apply new transmitter every 90 days. Clean transmitter with an alcohol swab with each sensor change. Disposable Gloves (DISPOSABLE LATEX-FREE GLOVES) [facility] 1 Box once every month. famotidine (PEPCID) 40 mg tablet Take 1 tablet by mouth once daily. [id number] (OSTEO BI-FLEX TRIPLE STRENGTH) 750 mg-644 mg- 30 mg-1 mg tab Take 1tablet by mouth two times a day. spironolactone (ALDACTONE) 25 mg tablet Take 1 tablet by mouth once daily. potassium chloride SR (MICRO-K) 8 mEq cpER Take 1 capsule by mouth daily with breakfast. Cholecalciferol, Vitamin D3, 125 mcg (5,000 unit) cap Take 1 capsule by mouth once daily. pravastatin (PRAVACHOL) 20 mg tablet Take 1 tablet by mouth daily at bedtime. furosemide (LASIX) 80 mg tablet Take 1 tablet by mouth once daily. Adhesive Bandage ([place] DRESSING) 6 X 6 bndg Apply to affected area once daily. Miscellaneous Medical Supply Collagen dressing 2x2 Blood-Glucose Meter monitoring kit Glucose Meter of Choice - Kit - Dx: Type 2 DM - Controlled E11.9Use twice daily as directed ascorbic acid (VITAMIN C ORAL) Take 1 tablet by mouth once daily. No current facility-administered medications for this visit. FAMILY HISTORY Problem Relation Age of Onset Hypertension Mother Heart Mother concha stroke Diabetes Mother Stroke Mother Massive- Arthritis Mother Osteoarthritis Hypertension Father COPD Father Hypertension Sister Arthritis Sister Hypertension Sister Diabetes Sister Arthritis Sister Hypertension Sister Diabetes Sister Arthritis Sister Hypertension Sister Diabetes Sister other (Rheumatoid Arthritis) Sister Heart Brother Triple Bypass Heart Brother Heart Brother Heart Maternal Aunt Heart Maternal Uncle Social History Tobacco Use Smoking status: Former Packs/day: 1.00 Years: 15.00 Additional pack years: 0.00 Total pack years: 15.00 Types: Cigarettes Quit date: 12/20/1994 Years since quittin.7 Smokeless tobacco: Never Vaping Use Vaping Use: Never used Substance Use Topics Alcohol use: No Drug use: No EXAM: BP 110/80 (BP Site: Right Arm, BP Position: Sitting, BP Cuff Size: Large Adult) Pulse 74 Temp 36.3 C (97.4 F) Resp 18 LMP 12/11/2008 PHYSICAL EXAM: General Appearance: Well appearing, alert, in no acute distress, well-hydrated, well nourished.. Skin: Skin color, texture, turgor normal. Vesicular erythematous rash from midline back radiating to R flank and R side of abdomen. Head: Normocephalic, no masses, lesions, tenderness or abnormalities. Eyes: Anicteric sclera. Extraocular movements are intact. . Lungs: Lungs clear to auscultation. No wheezing, rhonchi, rales.. Heart: RRR without murmur, gallop, or rubs. No ectopy. Extremities: No deformities, edema, skin discoloration, clubbing or cyanosis. Good capillary refill. . Neurologic: Negative. ASSESSMENT/PLAN: 1. Herpes zoster without complication - ICD9: 053.9, ICD10: B02.9 - GABAPENTIN 100 MG CAPSULE - pt instructed to take 100 mg gabapentin with her scheduled 600 mg gabapentin TID x 14 days - VALACYCLOVIR 1 GRAM TABLET -- will start antiviral since still getting new lesions. - pt instructed to take 1 g valacyclovir TID x 14 days - OXYCODONE-ACETAMINOPHEN 5 MG-325 MG TABLET - pt instructed to stop norco while taking percocet - pt instructed to take percocet q8 hours prn for pain - pt instructed to avoid individuals who are - pt has appointment with Dr. Herbert on 09/19/23 Discussed treatment plan and patient voices understanding. Patient's questions answered appropriately. Medications and potential side effects were discussed and patient voices understanding. Return to the office as scheduled or as needed for worsening/no improvement. Clarita Mathews APRN.CNP The patient indicates understanding of these issues and agrees with the plan. documented in this encounterPrem[facility]07-23-2024 Telephone encounter Note * Telephone Encounter - Estefani Bell LPN - 09/11/2023 12:41 PM EDT Prescription Refill Information The patient has been identified by name and date of : Yes Caregiver verified no other encounters exist for this prescription request: Yes Caregiver confirmed with patient/requestor that no other refills are due, in the near future, with this provider at this time: Yes The last office visit in the department: 05/29/23 Does the patient have a future office visit with this provider/department: Yes Requested Prescriptions Pending Prescriptions Disp Refills topiramate (TOPAMAX) 25 mg tablet 90 tablet 3 Sig: Take 1 tablet by mouth daily at bedtime. Estefani Bell LPN September 11, 2023 12:42 PM [facility]07-23-2024 Miscellaneous Notes* Telephone Encounter - Estefani Bell LPN - 09/11/2023 12:41 PM EDT Prescription Refill Information The patient has been identified by name and date of : Yes Caregiver verified no other encounters exist for this prescription request: Yes Caregiver confirmed with patient/requestor that no other refills are due, in the near future, with this provider at this time: Yes The last office visit in the department: 05/29/23 Does the patient have a future office visit with this provider/department: Yes Requested Prescriptions Pending Prescriptions Disp Refills topiramate (TOPAMAX) 25 mg tablet 90 tablet 3 Sig: Take 1 tablet by mouth daily at bedtime. Estefani Bell LPN September 11, 2023 12:42 PM documented in this encounterPrem[facility]07-22-2024 Telephone encounter Note * Telephone Encounter - Estefani Bell LPN - 09/10/2023 10:33 AM EDT Pt is going to check with her sister to see if sister can help her figure out how to do a virtual. Estefani Bell LPN [facility]07-22-2024 Miscellaneous Notes* Telephone Encounter - Estefani Bell LPN - 09/10/2023 10:33 AM EDT Pt is going to check with her sister to see if sister can help her figure out how to do a virtual. Estefani Bell LPN * Telephone Encounter - Daisy Gallo LPN - 09/10/2023 10:28 AM EDT Patient telephoned. Message left to call office back for update. Daisy Gallo LPN * Telephone Encounter - Clarita Mathews APRN.LIZZIE - 09/10/2023 9:49 AM EDT Would she be able to do a virtual that we can see the rash? * Telephone Encounter - Emily Garcia, LOLY - 09/10/2023 9:24 AM EDT Patient returns call and reports that insurance company can not get her transportation until Sunday09/12/2023 per their policy they need 48 hours notification. If provider doesn't agree will call patient back. Patient was concerned that office wouldn't be able to accommodate her d/t the size of her w/c. Please let me know if I need to phone her back. Emily Garcia, LOLY * Telephone Encounter - Sanjay Rondon, LOLY - 09/10/2023 8:17 AM EDT Patient reports she has shingles in middle of back to right side to mid front, with itching, pain, and blisters. Reviewed protocol with patient, and recommends to provider within 24 hours. Patient agreeable. Scheduled same day appt. Reason for Disposition [1] Shingles rash (matches SYMPTOMS) AND [2] onset < 72 hours ago (3 days) Answer Assessment - Initial Assessment Questions 1. APPEARANCE of RASH: Noticed blisters in middle of back to right side to mid front. Patches of blisters, rest of it is red and swollen. 2. LOCATION: See above. 3. ONSET: Started Sunday morning. 4. ITCHING: Mild itching 5. PAIN: At worst over a 10. At least 4/10. 6. OTHER SYMPTOMS: No fever. No other symptoms. 7. : No. Protocols used: Shingles (Zoster)-ADULT- documented in this encounterPrem[facility]07-22-2024 Telephone encounter Note * Telephone Encounter - Daisy Gallo LPN - 09/10/2023 10:28 AM EDT Patient telephoned. Message left to call office back for update. Daisy Gallo LPN [facility]07-22-2024 Telephone encounter Note* Telephone Encounter - Clarita Mathews APRN.LIZZIE - 09/10/2023 9:49 AM EDT Would she be able to do a virtual that we can see the rash? [facility] Work Phone: [phone] 104-371607-22-2024 Telephone encounter Note* Telephone Encounter - Emily Garcia RN - 09/10/2023 9:24 AM EDT Patient returns call and reports that insurance company can not get her transportation until Sunday09/12/2023 per their policy they need 48 hours notification. If provider doesn't agree will call patient back. Patient was concerned that office wouldn't be able to accommodate her d/t the size of her w/c. Please let me know if I need to phone her back. Emily Garcia RN [facility]07-22-2024 Telephone encounter Note* Telephone Encounter - Sanjay Rondon RN - 09/10/2023 8:17 AM EDT Patient reports she has shingles in middle of back to right side to mid front, with itching, pain, and blisters. Reviewed protocol with patient, and recommends to provider within 24 hours. Patient agreeable. Scheduled same day appt. Reason for Disposition [1] Shingles rash (matches SYMPTOMS) AND [2] onset < 72 hours ago (3 days) Answer Assessment - Initial Assessment Questions 1. APPEARANCE of RASH: Noticed blisters in middle of back to right side to mid front. Patches of blisters, rest of it is red and swollen. 2. LOCATION: See above. 3. ONSET: Started Sunday. 4. ITCHING: Mild itching 5. PAIN: At worst over a 10. At least 4/10. 6. OTHER SYMPTOMS: No fever. No other symptoms. 7. : No. Protocols used: Shingles (Zoster)-ADULT-AH [facility]07-18-2024 Telephone encounter Note* Telephone Encounter - Joi Markham APRN.CNP - 09/06/2023 3:00 PM EDT Completed [facility]07-18-2024 Miscellaneous Notes* Telephone Encounter - Joi Markham APRN.CNP - 09/06/2023 3:00 PM EDT Completed * Telephone Encounter - Sanjay Rondon RN - 09/06/2023 2:52 PM EDT Pt returned call and given provider's message below with verbalized understanding. Patient states she will take the ibuprofen sparingly. Reports [facility] in [place] is closing this month. Please send all of her Rx's to [facility]. [facility] will no longer have a local pharmacy. Pended ibuprofen for [facility]. * Telephone Encounter - Leida Nava MA - 09/06/2023 2:18 PM EDT Message left for pt to call back. Leida Nava MA * Telephone Encounter - Joi Markham APRN.LIZZIE - 09/06/2023 1:52 PM EDT Patient may take 800 mg of ibuprofen up to 3 times daily as needed. She needs to be aware that a steady diet of this medicine can increase chance of stroke and heart attack. I placed an order under the medication tab. Not exactly sure how to write a letter. * Telephone Encounter - Yoko Lopez RN - 09/05/2023 2:14 PM EDT Patient calling to request note be sent to [facility] in [place] stating she can take Ibuprofen 800 mg as needed. Attention: Mercedes Ni, nurse Yoko Lopez RN documented in this encounterPrem[facility]07-18-2024 Telephone encounter Note * Telephone Encounter - Sanjay Rondon RN - 09/06/2023 2:52 PM EDT Pt returned call and given provider's message below with verbalized understanding. Patient states she will take the ibuprofen sparingly. Reports [facility] in [place] is closing this month. Please send all of her Rx's to [facility]. [facility] will no longer have a local pharmacy. Pended ibuprofen for [facility]. [facility]07-18-20[facility] Telephone encounter Note* Telephone Encounter - Leida Nava MA - 09/06/2023 2:18 PM EDT Message left for pt to call back. Leida Nava MA [facility]07-18-2024 Telephone encounter Note* Telephone Encounter - Joi Markham APRN.CNP - 09/06/2023 1:52 PM EDT Patient may take 800 mg of ibuprofen up to 3 times daily as needed. She needs to be aware that a steady diet of this medicine can increase chance of stroke and heart attack. I placed an order under the medication tab. Not exactly sure how to write a letter. [facility]07-17-2024 Telephone encounter Note* Telephone Encounter - Yoko Lopez RN - 09/05/2023 2:14 PM EDT Patient calling to request note be sent to [facility] in [place] stating she can take Ibuprofen 800 mg as needed. Attention: Mercedes Ni, nurse Yoko Lopez RN [facility]07-08-2024 Telephone encounter Note* Telephone Encounter - Micaela Reis LPN - 08/27/2023 12:49 PM EDT The patient has been identified by name and date of : Yes Caregiver verified no other encounters exist for this prescription request: Yes Caregiver confirmed with patient/requestor that no other refills are due, in the near future, with this provider at this time: Yes The last office visit in the department: 05/29/2023 Does the patient have a future office visit with this provider/department: Yes Visit date not found Requested Prescriptions Pending Prescriptions Disp Refills rOPINIRole (REQUIP) 0.25 mg tablet 90 tablet 2 Sig: Take 1 tablet by mouth daily at bedtime. Micaela Reis LPN August 27, 2023 12:51 PM [facility]07-08-2024 Miscellaneous Notes* Telephone Encounter - Micaela Reis LPN - 08/27/2023 12:49 PM EDT The patient has been identified by name and date of : Yes Caregiver verified no other encounters exist for this prescription request: Yes Caregiver confirmed with patient/requestor that no other refills are due, in the near future, with this provider at this time: Yes The last office visit in the department: 05/29/2023 Does the patient have a future office visit with this provider/department: Yes Visit date not found Requested Prescriptions Pending Prescriptions Disp Refills rOPINIRole (REQUIP) 0.25 mg tablet 90 tablet 2 Sig: Take 1 tablet by mouth daily at bedtime. Micaela Reis LPN August 27, 2023 12:51 PM documented in this encounterPrem[facility] Telephone encounter Note * Telephone Encounter - Joi Garcia LPN - 08/13/2023 4:53 PM EDT Order faxed to number provided. [facility]06-24-2024 Miscellaneous Notes* Telephone Encounter - Joi Garcia LPN - 08/13/2023 4:53 PM EDT Order faxed to number provided. * Telephone Encounter - Sanjay Abbasi PA-C - 08/13/2023 4:46 PM EDT I am agreeable but I don't think I can sign for diabetic shoes, has to be a physician. Telephone on 08/13/23 ORTHO SHOE CUSTOM SHOES Thanks, Micah Abbasi PA-C * Telephone Encounter - Jennifer Marcum OCCA - 08/13/2023 1:05 PM EDT If agreeable, please place order for diabetic shoes and route back so order can be faxed to DME. Thank you. VIVIANA Pelletier * Telephone Encounter - Sanjay Abbasi PA-C - 08/13/2023 1:00 PM EDT Not clear if I am to do something here? Thanks, Micah Abbasi PA-C * Telephone Encounter - Sanjay Rondon RN - 08/13/2023 11:43 AM EDT Patient called back with Fax # to [facility]- * Telephone Encounter - Marlee Pennington RN - 08/13/2023 11:33 AM EDT Patient calls and states that she needs order placed for diabetic shoes. [facility] Patient will call back to office with fax number. Please review and advise, Marlee Pennington RN documented in this encounterPrem[facility]06-[facility] Telephone encounter Note * Telephone Encounter - Sanjay Abbasi PA-C - 08/13/2023 4:46 PM EDT I am agreeable but I don't think I can sign for diabetic shoes, has to be a physician. Telephone on 08/13/23 ORTHO SHOE CUSTOM SHOES Thanks, Micah Abbasi PA-C [facility]06-24-2024 Telephone encounter Note* Telephone Encounter - Jennifer Marcum OCCA - 08/13/2023 1:05 PM EDT If agreeable, please place order for diabetic shoes and route back so order can be faxed to DME. Thank you. VIVIANA Pelletier [facility]06-24-2024 Telephone encounter Note* Telephone Encounter - Sanjay Abbasi PA-C - 08/13/2023 1:00 PM EDT Not clear if I am to do something here? Flakito, Micah Abbasi PA-C [facility]06-24-2024 Telephone encounter Note* Telephone Encounter - Sanjay Rondon RN - 08/13/2023 11:43 AM EDT Patient called back with Fax # to [facility]- [facility]06-24-2024 Telephone encounter Note* Telephone Encounter - Marlee Pennington RN - 08/13/2023 11:33 AM EDT Patient calls and states that she needs order placed for diabetic shoes. [facility] Patient will call back to office with fax number. Please review and advise, Marlee Pennington RN [facility]06-24-2024 Telephone encounter Note* Telephone Encounter - Chantal Webb MA - 08/13/2023 9:05 AM EDT PA was completed electronically and approved: Authorized from July 14, 2023 to August 12, 2024. Patient was notified Chantal Webb MA [facility]06-24-2024 Miscellaneous Notes* Telephone Encounter - Chantal Webb MA - 08/13/2023 9:05 AM EDT PA was completed electronically and approved: Authorized from July 14, 2023 to August 12, 2024. Patient was notified Chantal Webb MA * Telephone Encounter - Marlee Pennington RN - 08/13/2023 8:43 AM EDT PRIOR AUTHORIZATION Medication for Prior Authorization: hydroxyzine pamoate Insurance Company: [employer] [facility] Medicaid Insurance Company phone number: [phone] Patient insurance ID number: [id number] Marlee Pennington RN documented in this encounterPrem[facility]06-[facility] Telephone encounter Note * Telephone Encounter - Marlee Pennington RN - 08/13/2023 8:43 AM EDT PRIOR AUTHORIZATION Medication for Prior Authorization: hydroxyzine pamoate Insurance Company: [employer] [facility] Medicaid Insurance [employer] phone number: [phone] Patient insurance ID number: [id number] Marlee Pennington RN [facility]06-21-2024 Telephone encounter Note* Telephone Encounter - Brittany Valencia LPN - 08/10/2023 5:21 PM EDT Spoke with Rogelio and permission was given to fill. [facility]06-21-2024 Miscellaneous Notes* Telephone Encounter - Brittany Valencia LPN - 08/10/2023 5:21 PM EDT Spoke with Rogelio and permission was given to fill. * Telephone Encounter - Nehemiah Herbert MD - 08/10/2023 5:16 PM EDT She has been on both for some time. * Telephone Encounter - Christal Rasmussen RN - 08/10/2023 4:45 PM EDT [facility] pharmacy calling and states they need response from ordering provider that it is okfor patient to take tizanidine and hydrocodone together as ordered. They state this is the first time they are filling the hydrocodone and documentation of the provider's approval is needed. They report that taking the 2 medications together could increase AVR for patient. Please call pharmacy with response. [phone] Reference #: [id number] Thank you. documented in this encounterPrem[facility]06-21-2024 Telephone encounter Note * Telephone Encounter - Nehemiah Herbert MD - 08/10/2023 5:16 PM EDT She has been on both for some time. [facility]06-21-2024 Telephone encounter Note* Telephone Encounter - Christal Rasmussen RN - 08/10/2023 4:45 PM EDT [facility] pharmacy calling and states they need response from ordering provider that it is okfor patient to take tizanidine and hydrocodone together as ordered. They state this is the first time they are filling the hydrocodone and documentation of the provider's approval is needed. They report that taking the 2 medications together could increase AVR for patient. Please call pharmacy with response. [phone] Reference #: [id number] Thank you. [facility]06-21-2024 Telephone encounter Note* Telephone Encounter - Marlee Pennington RN - 08/10/2023 12:00 PM EDT [facility] is closing. Patient needs prescriptions sent to [facility]. The patient has been identified by name and date of : Yes Caregiver verified no other encounters exist for this prescription request: Yes Caregiver confirmed with patient/requestor that no other refills are due, in the near future, with this provider at this time: Yes The last office visit in the department: 05/29/2023 Does the patient have a future office visit with this provider/department: Yes 08/28/2023 Requested Prescriptions Pending Prescriptions Disp Refills acetaminophen (ARTHRITIS PAIN RELIEF) 650 mg CR tablet 200 Each 5 Sig: Take 2 tablets by mouth every 8 hours as needed for pain. Not in same 8h period as [place] (hydrocodone Tylenol) blood sugar diagnostic (BLOOD GLUCOSE TEST) test strip 360 Strip 3 Sig: Test blood sugars up to 4 times daily as directed. Dx: Type 2 DM - Controlled E11.9 Insulin: Yes. Blood-Glucose Sensor (DEXCOM G6 SENSOR) jessica 9 Each 3 Sig: Apply new sensor every 10 days to abdomen. HYDROcodone-acetaminophen (NORCO) 5-325 mg per tablet 60 tablet 0 Sig: Take 1 tablet by mouth two times a day as needed for pain for up to 30 days. hydrOXYzine pamoate (VISTARIL) 25 mg capsule 30 capsule 2 Sig: Take 1 capsule by mouth three times a day as needed. Insulin Maljamar, Disposable, (Contact[employer]key ULTRA-FINE MADI PEN NEEDLE) 32 gauge x 5/32 100 Each 11 Sig: Use one needle for each dose. 2/day. Lancets 100 Each 11 Sig: Test blood sugar(s) up to 4 times daily. Dx: Type 2 DM - Controlled E11.9 Insulin: Yes tiZANidine (ZANAFLEX) 4 mg tablet 30 tablet 2 Sig: Take 1 tablet by mouth every 8 hours as needed (muscle spasms). topiramate (TOPAMAX) 25 mg tablet 30 tablet 2 Sig: Take 1 tablet by mouth daily at bedtime. Marlee Pennington RN August 10, 2023 12:04 PM [facility]06-21-2024 Miscellaneous Notes* Telephone Encounter - Marlee Pennington RN - 08/10/2023 12:00 PM EDT [facility] is closing. Patient needs prescriptions sent to [facility]. The patient has been identified by name and date of : Yes Caregiver verified no other encounters exist for this prescription request: Yes Caregiver confirmed with patient/requestor that no other refills are due, in the near future, with this provider at this time: Yes The last office visit in the department: 05/29/2023 Does the patient have a future office visit with this provider/department: Yes 08/28/2023 Requested Prescriptions Pending Prescriptions Disp Refills acetaminophen (ARTHRITIS PAIN RELIEF) 650 mg CR tablet 200 Each 5 Sig: Take 2 tablets by mouth every 8 hours as needed for pain. Not in same 8h period as [place] (hydrocodone Tylenol) blood sugar diagnostic (BLOOD GLUCOSE TEST) test strip 360 Strip 3 Sig: Test blood sugars up to 4 times daily as directed. Dx: Type 2 DM - Controlled E11.9 Insulin: Yes. Blood-Glucose Sensor (DEXCOM G6 SENSOR) jessica 9 Each 3 Sig: Apply new sensor every 10 days to abdomen. HYDROcodone-acetaminophen (NORCO) 5-325 mg per tablet 60 tablet 0 Sig: Take 1 tablet by mouth two times a day as needed for pain for up to 30 days. hydrOXYzine pamoate (VISTARIL) 25 mg capsule 30 capsule 2 Sig: Take 1 capsule by mouth three times a day as needed. Insulin Maljamar, Disposable, (BD ULTRA-FINE MADI PEN NEEDLE) 32 gauge x 5/32 100 Each 11 Sig: Use one needle for each dose. 2/day. Lancets 100 Each 11 Sig: Test blood sugar(s) up to 4 times daily. Dx: Type 2 DM - Controlled E11.9 Insulin: Yes tiZANidine (ZANAFLEX) 4 mg tablet 30 tablet 2 Sig: Take 1 tablet by mouth every 8 hours as needed (muscle spasms). topiramate (TOPAMAX) 25 mg tablet 30 tablet 2 Sig: Take 1 tablet by mouth daily at bedtime. Marlee Pennington RN August 10, 2023 12:04 PM documented in this encounterPrem[facility]06-[facility] Telephone encounter Note * Telephone Encounter - Sanjay Abbasi PA-C - 08/06/2023 6:00 PM EDT Glad to hear Micah Abbasi PA-C [facility]06-17-2024 Miscellaneous Notes* Telephone Encounter - Sanjay Abbasi PA-C - 08/06/2023 6:00 PM EDT Glad to hear Micah Abbasi PA-C * Telephone Encounter - La Babb RN - 08/06/2023 3:34 PM EDT Pt calling in to let Micah Abbasi know that since she started Topiramate, she has lost 15#. She wanted to thank Micah for putting her on it. documented in this encounterPrem[facility]06-17-2024 Telephone encounter Note * Telephone Encounter - La Babb RN - 08/06/2023 3:34 PM EDT Pt calling in to let Micah Abbasi know that since she started Topiramate, she has lost 15#. She wanted to thank Micah for putting her on it. [facility]05-30-2024 Telephone encounter Note* Telephone Encounter - Joi Markham APRN.CNS - 07/19/2023 4:49 PM EDT The following approved medication requests have been transmitted electronically. Requested Prescriptions Pending Prescriptions Disp Refills DULoxetine (CYMBALTA) 60 mg capsule 90 capsule 1 Sig: Take 1 capsule by mouth once daily. Joi Markham APRN.CNS [facility]05-30-2024 Miscellaneous Notes* Telephone Encounter - Joi Markham APRN.CNS - 07/19/2023 4:49 PM EDT The following approved medication requests have been transmitted electronically. Requested Prescriptions Pending Prescriptions Disp Refills DULoxetine (CYMBALTA) 60 mg capsule 90 capsule 1 Sig: Take 1 capsule by mouth once daily. Joi Markham APRN.CNS * Telephone Encounter - Yoko Lopez RN - 07/19/2023 3:15 PM EDT Patient has been identified by name and date of : Yes, Provider Date Time Patient phones for refill(s): Requested Prescriptions Pending Prescriptions Disp Refills DULoxetine (CYMBALTA) 60 mg capsule 90 capsule 1 Sig: Take 1 capsule by mouth once daily. Date of last office visit in primary care: 05/29/2023 Date of next office visit in primary care: 08/28/2023 Please advise. Thank you. Yoko Lopez RN. documented in this encounterPrem[facility]05-30-2024 Telephone encounter Note * Telephone Encounter - Yoko Lopez RN - 07/19/2023 3:15 PM EDT Patient has been identified by name and date of : Yes, Provider Date Time Patient phones for refill(s): Requested Prescriptions Pending Prescriptions Disp Refills DULoxetine (CYMBALTA) 60 mg capsule 90 capsule 1 Sig: Take 1 capsule by mouth once daily. Date of last office visit in primary care: 05/29/2023 Date of next office visit in primary care: 08/28/2023 Please advise. Thank you. Yoko Lopez RN. [facility]05-02-2024 Telephone encounter Note* Telephone Encounter - Joi Markham APRN.CNS - 06/21/2023 5:12 PM EDT The following approved medication requests have been transmitted electronically. Requested Prescriptions Pending Prescriptions Disp Refills traZODone (DESYREL) 100 mg tablet 90 tablet 1 Sig: Take 1 tablet by mouth daily at bedtime. Refused Prescriptions Disp Refills ARIPiprazole (ABILIFY) 10 mg tablet 90 tablet 3 Sig: Take 1 tablet by mouth once daily. Joi Markham APRN.CNS [facility]05-02-2024 Miscellaneous Notes* Telephone Encounter - Joi Markham APRN.CNS - 06/21/2023 5:12 PM EDT The following approved medication requests have been transmitted electronically. Requested Prescriptions Pending Prescriptions Disp Refills traZODone (DESYREL) 100 mg tablet 90 tablet 1 Sig: Take 1 tablet by mouth daily at bedtime. Refused Prescriptions Disp Refills ARIPiprazole (ABILIFY) 10 mg tablet 90 tablet 3 Sig: Take 1 tablet by mouth once daily. Joi Markham APRN.CNS * Telephone Encounter - Emily Garcia RN - 06/21/2023 9:45 AM EDT Patient has been identified by name and date of : Yes, Emily Garcia RN Date 06/21/2023 Time 9:45 am Patient phones for refill(s): Requested Prescriptions Pending Prescriptions Disp Refills ARIPiprazole (ABILIFY) 10 mg tablet 90 tablet 3 Sig: Take 1 tablet by mouth once daily. traZODone (DESYREL) 100 mg tablet 90 tablet 1 Sig: Take 1 tablet by mouth daily at bedtime. Date of last office visit in primary care: 05/29/2023 Date of next office visit in primary care: 08/28/2023 Please advise. Thank you. Emily Garcia RN. documented in this encounterPrem[facility]05-02-2024 Telephone encounter Note * Telephone Encounter - Joi Garcia LPN - 06/21/2023 1:13 PM EDT Patient notified. Verbalized understanding. [facility]05-02-2024 Miscellaneous Notes* Telephone Encounter - Joi Garcia LPN - 06/21/2023 1:13 PM EDT Patient notified. Verbalized understanding. * Telephone Encounter - Sanjay Abbasi PA-C - 06/21/2023 1:04 PM EDT The following approved medication requests have been transmitted electronically. Requested Prescriptions Signed Prescriptions Disp Refills topiramate (TOPAMAX) 25 mg tablet 30 tablet 2 Sig: Take 1 tablet by mouth daily at bedtime. Authorizing Provider: Sanjay ABBASI See my chart for medication info: read thoroughly and let me know if concerns Sanjay Abbasi PA-C * Telephone Encounter - Christal Rasmussen RN - 06/20/2023 1:22 PM EDT Patient calling and in and is interested in weight loss medication. Of note, Ozempic, Wegovy, Saxenda, and Zepbound are not covered under patient's insurance. Per 05/29/23 OV note, a trial of Topamax may be considered. Does provider wish to order? Please call patient with update. Thank you. * Telephone Encounter - Marlee Pennington RN - 06/04/2023 10:01 AM EDT Patient calls and wanted provider to know that Ozempic, Wegovy, Saxenda, and Zepbound are not covered under patient's insurance. Marlee Pennington RN documented in this encounterPrem[facility]05-02-2024 Telephone encounter Note * Telephone Encounter - Sanjay Abbasi PA-C - 06/21/2023 1:04 PM EDT The following approved medication requests have been transmitted electronically. Requested Prescriptions Signed Prescriptions Disp Refills topiramate (TOPAMAX) 25 mg tablet 30 tablet 2 Sig: Take 1 tablet by mouth daily at bedtime. Authorizing Provider: Sanjay ABBASI See my chart for medication info: read thoroughly and let me know if concerns Sanjay Abbasi PA-C [facility]05-02-2024 Telephone encounter Note* Telephone Encounter - Emily Garcia RN - 06/21/2023 9:45 AM EDT Patient has been identified by name and date of : Yes, Emily Garcia RN Date 06/21/2023 Time 9:45 am Patient phones for refill(s): Requested Prescriptions Pending Prescriptions Disp Refills ARIPiprazole (ABILIFY) 10 mg tablet 90 tablet 3 Sig: Take 1 tablet by mouth once daily. traZODone (DESYREL) 100 mg tablet 90 tablet 1 Sig: Take 1 tablet by mouth daily at bedtime. Date of last office visit in primary care: 05/29/2023 Date of next office visit in primary care: 08/28/2023 Please advise. Thank you. Emily Garcia RN. [facility]05-01-2024 Telephone encounter Note* Telephone Encounter - Christal Rasmussen RN - 06/20/2023 1:22 PM EDT Patient calling and in and is interested in weight loss medication. Of note, Ozempic, Wegovy, Saxenda, and Zepbound are not covered under patient's insurance. Per 05/29/23 OV note, a trial of Topamax may be considered. Does provider wish to order? Please call patient with update. Thank you. [facility]04-26-2024 Progress note Author Sania Raphael [facility] June 15, 2023 11:26am Note Date/Time June 14, 2023 4:2 1pm [facility] [address] [place] [address] Progress Note - Wound Care 06/14/23 1621 MR#: [id number] Acct: [id number] Name: WILTON KHAN V Rep #:[id number] : 1960 63 From: Sania RICHARDSON PCP: Dr. Nehemiah Herbert MD Status:REG R CR Location: History of Present Illness Date of Service: 06/14/23 Chief Complaint: Pressure ulceration of the left proximal posterior thigh History of Wound: Wilton Khan is a 63 y/o female who presents today for evaluation and management of a left posterior thigh ulceration. She reports that she has had ulcerations to her posterior legs and buttocks recurrently over the last 4 years. She is not sure how long the current ulceration has been there, maybe a few weeks. She is not able to visualize the area but reports it always feels very tender and uncomfortable. She states that her sister (who also acts as her home health aid) tells her the area is persistently red/purple and with areas of thickened flaky skin. She has been applying a cream provided by a different wound center in the past but isn't sureof the name. She is morbidly obese with a BMI of 77.4. She also has significant osteoarthritis of her knees and hips. This combination severely limits her mobility. She does ambulate short distances at home with a rollator. Outside of the home she utilizes an automated wheelchair. She has a hospital bed at home but is not able to sleep in it because she cannot lift her legs into the bed. She spends most of her time and sleeps in a recliner. She has an offloading pad for her wheelchair but cannot use it because the added height makes it difficultfor her to get into the wheelchair. She does not have an offloading pad for the recliner. She reports she does try to get up and at least stand every hour or so, she really isn't able to change positions. She does also struggle with urinary incontinence. She is not able to utilize depends due to discomfort and/or size. She does her best to keep the area clean and dry but does have difficulty with this at times. She has not been using a barrier cream because she was worried this was drying out her skin and causing the flakiness. She is diabetic with pretty good control, last A1c around 7 by report. She does not smoke. She does not have any known autoimmune conditions. She does not take any blood thinners. She has lost 40 pounds recently. Subjective Subjective Her sister changes her wound dressings and patient reports she has not mentionedany concerns in this regard. She does have significant discomfort throughout herbuttock/thighs in the areas of pressure injury as has been her baseline for a long time. She denies any concerns for infection. No N/V, F/C, increased drainage has been noted. She has not yet received a new hospital bed which is low enough for her to lift her legs into. She has been having communication difficulties with [facility] who are coordinating this. She does continue to work with her PCP on weight loss efforts, she reports they are trying to get a weight loss medicationapproved such as Ozempic or similar given her comorbid diabetes. Objective Data Objective Data Vital Signs: Vital Signs Temp Pulse Resp BP O2 Del Method 98.4 F 77 18 123/65 H Room Air 06/14/23 13:30 06/14/23 13:30 06/14/23 13:30 06/14/23 13:30 06/14/23 13:30 Oxygen Delivery Method Room Air Weight: 383 lb Body Mass Index (BMI) 77.3 Charges/Coding Procedures Integumentary 111xxx-113xx: 36469 Shanna subq tissue 20 sq cm/< Physical Exam Const alert, oriented x3 and no apparent distress Nutritional Appearance: morbidly obese HEENT normocephalic, hearing grossly normal bilaterally, external ears normal and external nose normal Eyes EOMs intact bilaterally General Eye: normal appearance of both eyes Neck General: normal visual inspection and trachea midline Resp normal respiratory effort, normal air movement, no retractions and no use of accessory muscles Effort and Inspection: able to speak in complete sentences Extremity General Extremity: edema bilateral (mild) Skin Wounds: wounds noted Wound Narrative: She has persistent red/purple discoloration diffusely across her bilateral posterior thighs and buttocks consistent with chronic pressure injury. L posterior proximal thigh wound has decreased in size, measurements as noted in debridement section. R posterior thigh ulceration with mild slough, well-bleeding base. Skin on the bilateral posterior thighs/buttock is overall improved with much less flaking. There is no warmth, foul odor, focal swelling, significant drainage. Neuro oriented x3, CN's II-XII intact bilaterally, moves all extremities and no focal motor deficits Speech: speech normal Debridement Note Debridement Note Wound debrided: L posterior thigh Laterality: Left Wound Grade/Stage: Stage 2 Type of Debridement: Excisional debridement Anesthesia Used: 5% Lidocaine Gel Depth: Down to and including healthy tissue Percentage of wound debrided: 100 Instrument Used: 3mm curette Tissue Removed: devitalized tissue Severity: Limited To Skin Breakdown Amount of bleeding with debridement: Mild Bleeding Controlled with: Pressure Patient tolerated procedure: Patient tolerated procedure well Post-Debridement Measurements and Additional Note: Post-Debridement Measurements/Treatment WC - Nurse 1 - General Ulcer Assessment Start: 05/31/23 13:22 Freq: Status: Active Protocol: ANNMARIE Activity Type Activity Date Activity User E-sign Co-sign Detail Recorded Client Recorded Date Recorded By Document 05/31/23 13:23 DL Desktop 05/31/23 13:35 DL Document 06/14/23 13:30 KW Desktop 06/14/23 13:40 KW 05/31/23 06/14/23 13:23 13:30 WC - Today's Visit Information Type of service Follow-up Visit Follow-up Visit (Physician/OIL FIELD ROUSTABOUT (Physician/OIL FIELD ROUSTABOUT ) ) Arrival Mode Wheelchair Wheelchair Transfer Assistance None Patient Identification Verified (Name & Yes Yes ) Patient Requires Transmission-Based No Precautions Height and Weight Body Mass Index (BMI) 77.3 77.3 BMI Classification Obese Obese Vital Signs Temperature (97.8 F-99.1 F) 97.3 F L 98.4 F Temperature Source Temporal Oral Pulse Rate (60-100) 72 77 Pulse Location Monitor Monitor Respiratory Rate (12-18) 22 H 18 Respiratory rate source Observation Observation Oxygen Delivery Method Room Air Blood Pressure (90/60-120/80) 124/54 H 123/65 H Blood Pressure Mean (mm Hg) 77 84 Source Monitor Monitor Position Semi-Fowlers Blood Pressure Location Right Forearm History Since Last Visit- (Skip if this is Patient's initial visit) Have you changed medications since your No No last visit? Any new allergies or adverse reactions No No Had a fall/change in ADL's that may No No increase risk of falls Signs or symptoms of abuse and/or No No neglect since last visit Have you been in the hospital since your No No last visit? Has dressing in place as prescribed Yes Yes Has compression in place as prescribed N/A N/A Has offloadiing in place as prescribed Yes N/A Experienced any changes in pain level or No No management Left Footwear Regular Shoe Right Footwear Regular Shoe Pain Scale: 0-10 Numeric Is Patient Pain Free? Yes Yes LT POST THIGH -Description Throbbing, Burning -Intensity 6 -Alleviating Factors/Interventions Medication WC - Nurse 1 - General Ulcer Measurement Start: 05/31/23 13:22 Freq: Status: Active Protocol: Activity Type Activity Date Activity User E-sign Co-sign Detail Recorded Client Recorded Date Recorded By Document 05/31/23 13:23 DL Desktop 05/31/23 13:35 DL Document 06/14/23 13:30 KW Desktop 06/14/23 13:40 KW 05/31/23 06/14/23 13:23 13:30 Wound Center Nurse 1 2. left post upper leg -Current Size (cm) - Length 0.1 0.8 -Current Size (cm) - Width 0.1 0.6 -Current Size (cm) - Depth 0.1 0.2 -Total Square Cm 0.01 0.48 -Exudate Amt None Present Small -Exudate Type Serosanguineous -Wound Margin Indistinct, Non Distinct, -Visible Outline Attached -Granulation Amt Small (1-33%) Medium (34-66%) -Granulation Quality [place] -Necrosis Amt None Present (0 %) -Structure Exposed N/A -Texture (Yoon-wound Skin Appearance) Localized Edema Assessed ,Scarring -Moisture (Yoon-wound Skin Appearance) No Abnormality Assessed -Color (Yoon-wound Skin Appearance) Ecchymosis Assessed, Hemosiderin Staining -Temperature (Yoon-wound Skin No Abnormality Appearance) (Pt Warm) -Tenderness on Palpation (Yoon-wound No Skin Appearance) -Ulcer Cleansing Soap and Water Rinsed/ Irrigated with Saline -Foul Odor after Cleansing Yes, Due to Product Use -Anesthetic Used 5% Lidocaine 5% Lidocaine Gel Gel WC - Nurse 2 - General Ulcer CM Notes Start: 05/31/23 13:22 Freq: Status: Active Protocol: Activity Type Activity Date Activity User E-sign Co-sign Detail Recorded Client Recorded Date Recorded By Document 05/31/23 14:16 Desktop 05/31/23 14:17 Document 06/14/23 14:38 Desktop 06/14/23 14:44 05/31/23 06/14/23 14:16 14:38 Wound Center Nurse 2 2. left post upper leg -Time 14:16 14:41 -Correct Patient Yes Yes -Correct Side, Site, Position Yes Yes -Correct Procedure Yes Yes -Procedure Performed Yes Yes -Type of Procedure Debridement Debridement -Clinical Debridement Subcutaneous Subcutaneous -Tissue Removed Subcutaneous Subcutaneous -Post Debridement (cm) - Length 1.5 0.6 -Post Debridement (cm) - Width 0.5 0.7 -Post Debridement (cm) - Depth 0.1 0.3 -Total Square (Post) (cm) 0.75 0.42 -Area of Debridement (cm) - Length 1.5 0.6 -Area of Debridement (cm) - Width 0.5 0.7 -Total Square (Area) (cm) 0.75 0.42 -Tunneling No No -Undermining/Tunneling No No -Circular Undermining No No -Wound/Ulcer Outcome Not Healed Not Healed -Ulcer Cleansing Rinsed/ Rinsed/ Irrigated with Irrigated with Saline Saline -Foul Odor after Cleansing No No -Bioengineered Tissue No No -Bleeding Controlled with Pressure Pressure -Treatment Response Procedure Procedure Tolerated Well Tolerated Well -Debridement - Subq, 1st 20sq cm Yes No #1 Right Upper Post Thigh -Time 14:42 -Correct Patient Yes -Correct Side, Site, Position Yes -Correct Procedure Yes -Procedure Performed Yes -Type of Procedure Debridement -Clinical Debridement Subcutaneous -Tissue Removed Subcutaneous -Post Debridement (cm) - Length 0.3 -Post Debridement (cm) - Width 0.2 -Post Debridement (cm) - Depth 0.2 -Total Square (Post) (cm) 0.06 -Area of Debridement (cm) - Length 0.3 -Area of Debridement (cm) - Width 0.2 -Total Square (Area) (cm) 0.06 -Tunneling No -Undermining/Tunneling No -Circular Undermining No -Wound/Ulcer Outcome Not Healed -Ulcer Cleansing Rinsed/ Irrigated with Saline -Foul Odor after Cleansing No -Bioengineered Tissue No -Bleeding Controlled with Pressure -Treatment Response Procedure Tolerated Well -Pressure Reduction Wheelchair cushion, Specialty bed -Debridement - Subq, 1st 20sq cm Yes Pain Scale: 0-10 Numeric Is Patient Pain Free? Yes Yes - Nurse 3 - General Ulcer D/C NN Start: 05/31/23 13:22 Freq: Status: Active Protocol: Activity Type Activity Date Activity User E-sign Co-sign Detail Recorded Client Recorded Date Recorded By Document 05/31/23 14:17 Desktop 05/31/23 14:18 Document 06/14/23 14:46 [id number] 06/14/23 14:49 05/31/23 06/14/23 14:17 14:46 Wound Care Center Nurse 3 2. left post upper leg -Ulcer Cleansing Not Cleansed -Foul Odor after Cleansing No -Primary Dressing Applied Mepilex Border, Promogran Promogran -Primary Dressing Covered/Secured with Dry Gauze, Secured with Tape -Mepilex Border 2 -Promogran 1 1 #1 Right Upper Post Thigh -Primary Dressing Covered/Secured with Dry Gauze, Secured with Tape Pain Scale: 0-10 Numeric Is Patient Pain Free? Yes Yes WC - Visit Discharge Discharge Condition Stable Stable Ambulatory Status Wheelchair Wheelchair Transportation Private Auto Medication Reconcilliation completed & No provided to patient/care provider Clinical Summary of Care Provided Yes Yes Additional Wound Wound debrided: R posterior thigh Laterality: Right Wound Grade/Stage: Stage 2 Type of Debridement: Excisional debridement Depth: Down to and including healthy tissue Percentage of wound debrided: 100 Instrument Used: 3mm curette Tissue Removed: devitalized tissue Severity: Limited To Skin Breakdown Amount of bleeding with debridement: Mild Bleeding Controlled with: Pressure Patient tolerated procedure: Patient tolerated procedure well Assessment/Plan Assessment/Plan (1) Morbid obesity with BMI of 70 and over, adult: CODE(S): E66.01 - Morbid (severe) obesity due to excess calories; Z68.45 -Body mass index [BMI] 70 or greater, adult (2) Pressure ulcer of upper thigh: CODE(S): L89.209 - Pressure ulcer of unspecified hip, unspecified stage PLAN: Plan For wound dressings, continue to apply lightly moistened Promogran to the wound bed and cover with silicone border foam dressing. Change daily or more often as needed to keep clean and dry. With dressing changes, cleanse the area with antibacterial soap and water and pat to dry. Okay to shower and allow soap and water to rinse over the area. For care of the periwound skin, continue to apply Eucerin to the bilateral posterior thighs and buttocks. Allow the lotion to soak in. Then apply the barrier cream to the buttocks/intertriginous areas to protect from chronic moisture associated with skin folds and incontinence. Nurse manager case is going to try to help with coordination of new hospital bed. Insurance did deny the one we ordered as she has received her current bed within the last 2 years. However, she states she can get a new lower bed through [facility]. Continue to change positions, stand, and/or walk every hour throughout the day. We again discussed the importance of continued weight loss and she is encouraged to continue with this effort. She is encouraged to continue with Jonah supplementation. She is encouraged to continue with good glycemic control. She will return in 2 weeks or sooner as needed. 06/15/23 1126 <Electronically signed by Sania RICHARDSON> Cosigner Signature (if applicable): CC: ~ Signed [facility] Work Phone: [phone] Miscellaneous Notes* Telephone Encounter - Sanjay Abbasi PA-C - 06/07/2023 11:45 AM EDT The following approved medication requests have been transmitted electronically. Requested Prescriptions Signed Prescriptions Disp Refills HYDROcodone-acetaminophen (NORCO) 5-325 mg per tablet 60 tablet 0 Sig: Take 1 tablet by mouth two times a day as needed for pain for up to 30 days. Authorizing Provider: Sanjay ABBASI tiZANidine (ZANAFLEX) 4 mg tablet 30 tablet 2 Sig: Take 1 tablet by mouth every 8 hours as needed (muscle spasms). Authorizing Provider: Sanjay ABBASI PA-C * Telephone Encounter - Dilia Mukherjee - 06/06/2023 12:20 PM EDT Pharmacy verified in [facility] Patient has been identified by name and date of : Yes Patient aware RX will be sent to pharmacy. No need to notify patient. Patient phones for refill(s): Requested Prescriptions Pending Prescriptions Disp Refills HYDROcodone-acetaminophen (NORCO) 5-325 mg per tablet 60 tablet 0 Sig: Take 1 tablet by mouth two times a day as needed for pain for up to 30 days. tiZANidine (ZANAFLEX) 4 mg tablet 30 tablet 2 Sig: Take 1 tablet by mouth every 8 hours as needed (muscle spasms). Date of last office visit : 05/29/2023 Date of next office visit : 08/28/2023 Last 2 Encounter Wt Readings: Date: Wt: 05/29/2023 173.3 kg (382 lb) 02/26/2023 174.6 kg (385 lb) Not applicable Please advise. Dilia Turcios [facility] Telephone encounter Note * Telephone Encounter - Marlee Pennington RN - 06/04/2023 10:01 AM EDT Patient calls and wanted provider to know that Ozempic, Wegovy, Saxenda, and Zepbound are not covered under patient's insurance. Marlee Pennington RN [facility]04-12-2024 Progress note Author Sania Raphael [facility] June 01, 2023 8:11am Note Date/Time May 31, 2023 5:0 7pm [facility] [address] [place] [id number] Progress Note - Wound Care 05/31/23 1707 MR#: [id number] Acct: [id number] Name: WILTON KHAN V Rep #:[id number] : 1960 63 From: Sania RICHARDSON PCP: Dr. Nehemiah Herbert MD Status:REG R CR Location: History of Present Illness Date of Service: 05/31/23 Chief Complaint: Pressure ulceration of the left proximal posterior thigh History of Wound: Wilton Khan is a 63 y/o female who presents today for evaluation and management of a left posterior thigh ulceration. She reports that she has had ulcerations to her posterior legs and buttocks recurrently over the last 4 years. She is not sure how long the current ulceration has been there, maybe a few weeks. She is not able to visualize the area but reports it always feels very tender and uncomfortable. She states that her sister (who also acts as her home health aid) tells her the area is persistently red/purple and with areas of thickened flaky skin. She has been applying a cream provided by a different wound center in the past but isn't sureof the name. She is morbidly obese with a BMI of 77.4. She also has significant osteoarthritis of her knees and hips. This combination severely limits her mobility. She does ambulate short distances at home with a rollator. Outside of the home she utilizes an automated wheelchair. She has a hospital bed at home but is not able to sleep in it because she cannot lift her legs into the bed. She spends most of her time and sleeps in a recliner. She has an offloading pad for her wheelchair but cannot use it because the added height makes it difficultfor her to get into the wheelchair. She does not have an offloading pad for the recliner. She reports she does try to get up and at least stand every hour or so, she really isn't able to change positions. She does also struggle with urinary incontinence. She is not able to utilize depends due to discomfort and/or size. She does her best to keep the area clean and dry but does have difficulty with this at times. She has not been using a barrier cream because she was worried this was drying out her skin and causing the flakiness. She is diabetic with pretty good control, last A1c around 7 by report. She does not smoke. She does not have any known autoimmune conditions. She does not take any blood thinners. She has lost 40 pounds recently. Subjective Subjective She has done well with dressing changes overall. She has been diligent with applying Eucerin cream as well. Her sister does her dressing changes and she feels that the periwound skin has improved with less flaking etc. She reports good progress with the wound on the L posterior thigh. She reports an area on her R posterior thigh which was healed over at last visit has reopened. She denies any N/V, F/C. She has heard from two different companies about a new bed which will lower to 12 inches off the ground which will allow her to more easily get into the bed. She is planning to receive this from [employer] as it will be free to her through them. She is not sure about a low air-loss mattress. Objective Data Objective Data Vital Signs: Vital Signs Temp Pulse Resp BP 97.3 F L 72 22 H 124/54 H 05/31/23 13:23 05/31/23 13:23 05/31/23 13:23 05/31/23 13:23 Weight: 383 lb Body Mass Index (BMI) 77.3 Charges/Coding Procedures Integumentary 111xxx-113xx: [id number] Shanna subq tissue 20 sq cm/< Physical Exam Const alert, oriented x3 and no apparent distress Nutritional Appearance: morbidly obese HEENT normocephalic, hearing grossly normal bilaterally, external ears normal and external nose normal Eyes EOMs intact bilaterally General Eye: normal appearance of both eyes Neck General: normal visual inspection and trachea midline Resp normal respiratory effort, normal air movement, no retractions and no use of accessory muscles Effort and Inspection: able to speak in complete sentences Extremity General Extremity: edema bilateral (mild) Skin Wounds: wounds noted Wound Narrative: She has persistent red/purple discoloration diffusely across her bilateral posterior thighs and buttocks consistent with chronic pressure injury. L posterior proximal thigh wound has decreased in size, measurements as noted in debridement section. Now there is a cluster of skin breakdown on the R posteriorthigh, measurements as noted in debridement section. Skin on the bilateral posterior thighs/buttock is overall improved with much less flaking. There is nowarmth, foul odor, focal swelling, significant drainage. Neuro oriented x3, CN's II-XII intact bilaterally, moves all extremities and no focal motor deficits Speech: speech normal Debridement Note Debridement Note Wound debrided: L posterior thigh Laterality: Left Wound Grade/Stage: Stage 2 Type of Debridement: Excisional debridement Anesthesia Used: 5% Lidocaine Gel Depth: Down to and including healthy tissue Percentage of wound debrided: 100 Instrument Used: 3mm curette Tissue Removed: devitalized tissue Severity: Limited To Skin Breakdown Amount of bleeding with debridement: Mild Bleeding Controlled with: Pressure Patient tolerated procedure: Patient tolerated procedure well Post-Debridement Measurements and Additional Note: Post-Debridement Measurements/Treatment - Nurse 1 - General Ulcer Assessment Start: 05/31/23 13:22 Freq: Status: Active Protocol: [email or web address] Activity Type Activity Date Activity User E-sign Co-sign Detail Recorded Client Recorded Date Recorded By Document 05/31/23 13:23 DL Desktop 05/31/23 13:35 DL 05/31/23 13:23 - Today's Visit Information Type of service Follow-up Visit (Physician/OIL FIELD ROUSTABOUT ) Arrival Mode Wheelchair Transfer Assistance None Patient Identification Verified (Name & Yes ) Patient Requires Transmission-Based No Precautions Height and Weight Body Mass Index (BMI) 77.3 BMI Classification Obese Vital Signs Temperature (97.8 F-99.1 F) 97.3 F L Temperature Source Temporal Pulse Rate (60-100) 72 Pulse Location Monitor Respiratory Rate (12-18) 22 H Respiratory rate source Observation Blood Pressure (90/60-120/80) 124/54 H Blood Pressure Mean (mm Hg) 77 Source Monitor History Since Last Visit- (Skip if this is Patient's initial visit) Have you changed medications since your No last visit? Any new allergies or adverse reactions No Had a fall/change in ADL's that may No increase risk of falls Signs or symptoms of abuse and/or No neglect since last visit Have you been in the hospital since your No last visit? Has dressing in place as prescribed Yes Has compression in place as prescribed N/A Has offloadiing in place as prescribed Yes Experienced any changes in pain level or No management Pain Scale: 0-10 Numeric Is Patient Pain Free? Yes WC - Nurse 1 - General Ulcer Measurement Start: 05/31/23 13:22 Freq: Status: Active Protocol: Activity Type Activity Date Activity User E-sign Co-sign Detail Recorded Client Recorded Date Recorded By Document 05/31/23 13:23 DL Desktop 05/31/23 13:35 DL 05/31/23 13:23 Wound Center Nurse 1 2. left post upper leg -Current Size (cm) - Length 0.1 -Current Size (cm) - Width 0.1 -Current Size (cm) - Depth 0.1 -Total Square Cm 0.01 -Exudate Amt None Present -Wound Margin Indistinct, Non -Visible -Granulation Amt Small (1-33%) -Granulation Quality [place] -Necrosis Amt None Present (0 %) -Structure Exposed N/A -Texture (Yoon-wound Skin Appearance) Localized Edema ,Scarring -Moisture (Yoon-wound Skin Appearance) No Abnormality -Color (Yoon-wound Skin Appearance) Ecchymosis -Ulcer Cleansing Soap and Water -Foul Odor after Cleansing Yes, Due to Product Use -Anesthetic Used 5% Lidocaine Gel WC - Nurse 2 - General Ulcer CM Notes Start: 05/31/23 13:22 Freq: Status: Active Protocol: Activity Type Activity Date Activity User E-sign Co-sign Detail Recorded Client Recorded Date Recorded By Document 05/31/23 14:16 GM Desktop 05/31/23 14:17 05/31/23 14:16 Wound Center Nurse 2 -Time 14:16 -Correct Patient Yes -Correct Side, Site, Position Yes -Correct Procedure Yes -Procedure Performed Yes -Type of Procedure Debridement -Clinical Debridement Subcutaneous -Tissue Removed Subcutaneous -Post Debridement (cm) - Length 1.5 -Post Debridement (cm) - Width 0.5 -Post Debridement (cm) - Depth 0.1 -Total Square (Post) (cm) 0.75 -Area of Debridement (cm) - Length 1.5 -Area of Debridement (cm) - Width 0.5 -Total Square (Area) (cm) 0.75 -Tunneling No -Undermining/Tunneling No -Circular Undermining No -Wound/Ulcer Outcome Not Healed -Ulcer Cleansing Rinsed/ Irrigated with Saline -Foul Odor after Cleansing No -Bioengineered Tissue No -Bleeding Controlled with Pressure -Treatment Response Procedure Tolerated Well -Debridement - Subq, 1st 20sq cm Yes Pain Scale: 0-10 Numeric Is Patient Pain Free? Yes - Nurse 3 - General Ulcer D/C NN Start: 05/31/23 13:22 Freq: Status: Active Protocol: Activity Type Activity Date Activity User E-sign Co-sign Detail Recorded Client Recorded Date Recorded By Document 05/31/23 [facility] 14:18 05/31/23 14:17 Wound Care Center Nurse 3 2. left post upper leg -Ulcer Cleansing Not Cleansed -Foul Odor after Cleansing No -Primary Dressing Applied Mepilex Border, Promogran -Mepilex Border 2 -Promogran 1 Pain Scale: 0-10 Numeric Is Patient Pain Free? Yes - Visit Discharge Discharge Condition Stable Ambulatory Status Wheelchair Transportation Private Auto Clinical Summary of Care Provided Yes Additional Wound Wound debrided: R posterior thigh Laterality: Right Wound Grade/Stage: Stage 2 Type of Debridement: Excisional debridement Depth: Down to and including healthy tissue Percentage of wound debrided: 100 Instrument Used: 3mm curette Tissue Removed: devitalized tissue Severity: Limited To Skin Breakdown Amount of bleeding with debridement: Mild Bleeding Controlled with: Pressure Patient tolerated procedure: Patient tolerated procedure well Assessment/Plan Assessment/Plan (1) Morbid obesity with BMI of 70 and over, adult: CODE(S): E66.01 - Morbid (severe) obesity due to excess calories; Z68.45 -Body mass index [BMI] 70 or greater, adult (2) Pressure ulcer of upper thigh: CODE(S): L89.209 - Pressure ulcer of unspecified hip, unspecified stage PLAN: Plan For wound dressings, continue to apply lightly moistened Promogran to the wound bed and cover with silicone border foam dressing. Change daily or more often as needed to keep clean and dry. With dressing changes, cleanse the area with antibacterial soap and water and pat to dry. Okay to shower and allow soap and water to rinse over the area. For care of the periwound skin, I continue to apply Eucerin to the bilateral posterior thighs and buttocks. Allow the lotion to soak in. Then apply the barrier cream to the buttocks/intertriginous areas to protect from chronic moisture associated with skin folds and incontinence. She is in the process of receiving a new bed. Once she receives the bed, we can try to obtain a compatible low air loss mattress overlay. Continue to change positions, stand, and/or walk every hour throughout the day. Of course, we discussed the importance of continued weight loss and she is encouraged to continue with this effort. We discussed available nutritional supplements such as Jonah/Glucerna. She is encouraged to continue with good glycemic control. She will return in 2 weeks or sooner as needed. 06/01/23 0811 <Electronically signed by Sania RICHARDSON> Cosigner Signature (if applicable): CC: ~ Signed [facility] Work Phone: [phone] History of Present illness Narrative* Sanjay Abbasi PA-C - 05/29/2023 11:20 AM EDT 63 year old female with c/o here4 for 3 month follow up. Essential hypertension, benign (primary encounter diagnosis) Benign hypertensive heart disease with chf, nyha class 2 (hcc) Svt (supraventricular tachycardia) Cardiovascular interval hx: 03/18/2021 EKG: Sinus tachycardia, left ventricular hypertrophy with repolarization abnormality 03/14/2021 echocardiogram [facility]: LV size and LVSF WNL, EF 55%, stage I diastolic dysfunction, no regional wall motion abnormalities. RV size and RV SF WNL Bilateral atria are normal in size. Tricuspid valve normal, 1+ TVi, PASP 36 mmHg Normal aortic root No pericardial effusion 02/03/2019 EKG [facility]: Normal sinus rhythm, moderate voltage criteria for LVH, possible normal variant Current meds: Pravachol 20 mg daily at bedtime spironolactone 25 mg daily Use of NTG: No Chest pain, arm, jaw pain, neck, or upper back pain suggestive of angina: No. SOB: No Dyspnea with exertion: No orthopnea: some but with BiPap does well. Cough : No racing or irregular heartbeats: No palpitations: No syncopal sx: No Headache: No Unexplainable fatigue none Leg swelling: No Nausea: Yes, sour stomach, bowels roll and turn like going to have diarrhea but doesn't. diaphoresis: No Heartburn: none but identifies sour stomach wonders if Trulicity Claudication: Yes, a lot. Takes muscle relaxers for cramping. Drinks quite a bit of water. Elevateslegs in recliner. Smoking: No Following Low cholesterol, high fiber diet? yes If on statin: muscle aches? No If on statin: GI sx or diarrhea? No Additional history walking twice a day down halls and to [employer] and then back and forth to dining room. . Lab review: Latest Ref Rng 10/10/2022 02/26/2023 04/16/2023 Protein, Total 6.3 - 8.0 g/dL 6.4 6.7 Albumin 3.9 - 4.9 g/dL 4.1 4.0 Calcium 8.5 - 10.2 mg/dL 9.2 9.2 Bilirubin, Total 0.2 - 1.3 mg/dL 0.5 0.6 Alkaline Phosphatase 34 - 123 U/L 130 (H) 117 AST 13 - 35 U/L 16 22 ALT 7 - 38 U/L 13 11 Glucose 74 - 99 mg/dL 186 (H) 140 (H) BUN 7 - 21 mg/dL 23 (H) 17 Creatinine 0.58 - 0.96 mg/dL 0.76 0.56 (L) Sodium 136 - 144 mmol/L 139 138 Potassium 3.7 - 5.1 mmol/L 4.3 4.8 Chloride 97 - 105 mmol/L 99 101 CO2 22 - 30 mmol/L 31 (H) 24 Anion Gap 9 - 18 mmol/L 9 13 eGFR >=60 mL/min/1.73m 88 103 WBC 3.70 - 11.00 k/uL 6.96 7.85 RBC 3.90 - 5.20 m/uL 4.40 4.52 Hemoglobin 11.5 - 15.5 g/dL 12.6 13.0 Hematocrit 36.0 - 46.0 % 39.4 40.3 MCV 80.0 - 100.0 fL 89.5 89.2 MCH 26.0 - 34.0 pg 28.6 28.8 MCHC 30.5 - 36.0 g/dL 32.0 32.3 RDW-CV 11.5 - 15.0 % 12.7 12.8 Platelet Count 150 - 400 k/uL 243 232 MPV 9.0 - 12.7 fL 11.4 10.5 Absolute nRBC <0.01 k/uL <0.01 <0.01 Latest Ref Rng 04/08/2019 04/16/2023 Cholesterol, Total <200 mg/dL 142 137 Triglyceride <150 mg/dL 134 115 HDL Cholesterol >39 mg/dL 52 43 LDL Cholesterol <100 mg/dL 63 71 Non HDL Cholesterol <130 mg/dL 90 94 Fasting Time hrs 8 15 VLDL Cholesterol <30 mg/dL 27 23 TC:HDL Ratio <5.10 2.73 3.19 LDL:HDL Ratio <2.54 1.21 1.65 Chronic respiratory failure with hypoxia (hcc) Obstructive sleep apnea Current medications: Albuterol HFA 90 mcg 2 puffs every 4 hours as needed Compliant with BiPap Type 2 diabetes mellitus with peripheral neuropathy (hcc) 05/10/2023 saw Lety Markham [employer] or elevated blood sugars 180 up to 300 Current medications: Dulaglutide 3 mg subcu Insulin Lantus 35 units subcu at bedtime Taking medication as directed consistently? Yes Medication side effects: none Medical Issues / Complications: hypertension, hyperlipidemia, and cardiovascular disease Checking blood sugars at home? Fasting 150, 2h 180-250 Watching diet? Yes Physical Activity: still walking every day and doing leg and arm exercising. Hypoglycemic spells? No Any visual disturbance? No Chest pain? No New numbness, tingling or loss of sensation? No but feet burn like fire Any recent foot problems, sores or rashes? Yes Any recent or sudden weight loss? No Change in urination? No. If yes: Any recent illness? No Last eye exam: up to date. Last foot exam: up to date. Hemoglobin A1C (%) Date Value 02/26/2023 6.9 05/08/2022 7.1 12/24/2020 7.5 12/13/2020 7.2 CMP: Glucose 140 04/16/2023 BUN 17 04/16/2023 Creatinine 0.56 04/16/2023 Sodium 138 04/16/2023 Potassium 4.8 04/16/2023 Chloride 101 04/16/2023 CO2 24 04/16/2023 Protein, Total 6.7 04/16/2023 Albumin 4.0 04/16/2023 Calcium 9.2 04/16/2023 Alkaline Phosphatase 117 04/16/2023 Bilirubin, Total 0.6 04/16/2023 AST 22 04/16/2023 ALT 11 04/16/2023 Latest Ref Rng 02/22/2022 02/27/2023 04/19/2023 Creatinine, Ur Random (UCRR) 20.0 - 300.0 mg/dL 15.7 (L) 15.8 (L) 14.7 (L) Albumin, Urine Random mg/L <12.0 <12.0 <12.0 Albumin/Creat Ratio -- -- -- Hypercalcemia Primary hyperparathyroidism (hcc) Current medications: Vit D3 5000u daily No new data 05/29/2023 Component Latest Ref Rng & Units 05/08/2022 07/07/2022 Protein, Total 6.3 - 8.0 g/dL 6.3 Albumin 3.9 - 4.9 g/dL 4.3 Calcium 8.5 - 10.2 mg/dL 9.6 Bilirubin, Total 0.2 - 1.3 mg/dL 0.4 Alkaline Phosphatase 34 - 123 U/L 119 AST 13 - 35 U/L 15 ALT 7 - 38 U/L 14 Glucose 74 - 99 mg/dL 177 (H) BUN 7 - 21 mg/dL 20 Creatinine 0.58 - 0.96 mg/dL 0.54 (L) Sodium 136 - 144 mmol/L 141 Potassium 3.7 - 5.1 mmol/L 4.5 Chloride 97 - 105 mmol/L 103 CO2 22 - 30 mmol/L 26 Anion Gap 9 - 18 mmol/L 12 eGFR >=60 mL/min/1.73m 104 Normalized Calcium 1.08 - 1.30 mmol/L 1.22 Ionized Calcium 1.08 - 1.30 mmol/L 1.18 Vitamin D 25 Hydroxy 31.0 - 80.0 ng/mL 56.4 PTH, Intact 15 - 65 pg/mL 25 38 Pressure injury of left thigh, stage 3 ([facility]) Being followed by [facility] Doing better, not as hard Asked not to check today as just had dressings applied Major depressive disorder, recurrent episode, moderate ([facility]) Dysthymia Current medications: Aripiprazole 10 mg daily Duloxetine 60 mg daily Trazodone 100 mg daily at bedtime Wasn't able to lower aripiprazole Doing great Using hydoxyzine for anxiety but not often, Morbid obesity ([facility]) Asking for weight loss medication Trulicity stopped due GI disturbance Has been on phenteramine in past with weight loss Debility Able to manage in home but difficulty with transfers. No falls. Sister helps her with care and visa versa. Walking as above to to improve endurance Pain disorder with psychological factors Ddd (degenerative disc disease), lumbar Current medications: Gabapentin 300 mg twice a day Hydrocodone-acetaminophen 5-325 mg tablet twice a day Hydroxyzine pamoate 25 mg capsule 3 times daily as needed for nausea Tizanidine 4 mg every 8 hours as needed muscle pain Having spasms in hand and legs Legs are burning Has seen Dr. Pacheco and Dr. Rai in past for pain management. HISTORIES FAMILY HISTORY Problem Relation Age of Onset Hypertension Mother Heart Mother concha stroke Diabetes Mother Stroke Mother Massive- Arthritis Mother Osteoarthritis Hypertension Father COPD Father Hypertension Sister Arthritis Sister Hypertension Sister Diabetes Sister Arthritis Sister Hypertension Sister Diabetes Sister Arthritis Sister Hypertension Sister Diabetes Sister other (Rheumatoid Arthritis) Sister Heart Brother Triple Bypass Heart Brother Heart Brother Heart Maternal Aunt Heart Maternal Uncle PAST MEDICAL HISTORY Diagnosis Date Abnormal glandular Papanicolaou smear of cervix 05/30/05 ABNL GLANDULAR PAP SMEAR CERVIX Acute gastritis without mention of hemorrhage Anxiety state, unspecified Arrhythmia Chronic cholecystitis Chronic obstructive pulmonary disease (COPD) ([facility]) Congestive heart failure (HCC) 10/03/2011 Diabetes ([facility]) diabetes II 2010 Diaphragmatic hernia without mention of obstruction or gangrene Dysthymic disorder Depression (non-psychotic) Esophageal reflux Essential hypertension, benign Generalized OA Hyperprolactinemia ([facility]) 10/13/2005 Localized osteoarthrosis not specified whether primary or secondary, lower leg Major depressive disorder, recurrent episode Mucous polyp of cervix 07/19/05 Other and unspecified anterior pituitary hyperfunction (HCC) 10/13/05 elevated prolactin level-was normal in 2011 PMH - PAST MEDICAL HISTORY OF sleep apnea PMH - PAST MEDICAL HISTORY OF sleep apnea SVT (supraventricular tachycardia) 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 Type 2 diabetes mellitus without complication, with long-term current use of insulin (HCC) 12/22/2013 PAST SURGICAL HISTORY Procedure Laterality Date BIOPSY CERVIX SINGLE/MULT/EXCISION OF LESION SPX 07/19/2005 endocervical polyp COLONOSCOPY FLX DX W/COLLJ SPEC WHEN PFRMD 01/09/2012 Colonoscopy repeat 10 years COLPOSCOPY CERVIX UPPER/ADJACENT VAGINA Colposcopy EGD TRANSORAL BIOPSY SINGLE/MULTIPLE 01/16/2007 ESOPHAGOGASTRODUODENOSCOPY TRANSORAL DIAGNOSTIC 01/09/2012 EGD HERNIA REPAIR HX 11/2015 ventral HYSTEROSCOPY DX 12/17/2014 D&C LAPS SURG CHOLECYSTECTOMY W/CHOLANGIOGRAPHY 05/15/2008 PARATHYROID Social History Tobacco Use Smoking status: Former Packs/day: 1.00 Years: 15.00 Additional pack years: 0.00 Total pack years: 15.00 Types: Cigarettes Quit date: 12/20/1994 Years since quittin.4 Smokeless tobacco: Never Vaping Use Vaping Use: Never used Substance Use Topics Alcohol use: No Drug use: No ACTIVE PROBLEM LIST Anxiety State Essential Hypertension, Benign ABNL GLANDULAR PAP SMEAR CERVIX Irregular Menstrual Cycle Esophageal Reflux Morbid Obesity (Hcc) Obstructive Sleep Apnea Svt (Supraventricular Tachycardia) ([facility]) Benign Hypertensive Heart Disease With Chf, Nyha Class 2 ([facility]) Spondylolisthesis Lumbar Facet Arthropathy Ddd (Degenerative Disc Disease), Lumbar Ddd (Degenerative Disc Disease), Cervical Type 2 Diabetes Mellitus With Peripheral Neuropathy ([facility]) Pmb (Postmenopausal Bleeding) Dysthymia Major depressive disorder, recurrent episode, moderate (HCC) Pain Disorder With Psychological Factors Diffuse Myofascial Pain Syndrome Bilateral Primary Osteoarthritis of Knee Liver Disease Umbilical Hernia Without Obstruction and Without Gangrene Hypercalcemia Primary Hyperparathyroidism (Hcc) Dvt (Deep Venous Thrombosis) ([facility]) Traumatic Complete Tear of Right Rotator Cuff Debility Abnormality of Gait Due to Impairment of Balance Chronic Respiratory Failure With Hypoxia ([facility]) Former Smoker Pressure Injury of Skin of Thigh Pressure Injury of Left Thigh, Stage 3 (Hcc) Current Outpatient Medications Medication Sig Dispense Refill acetaminophen (ARTHRITIS PAIN RELIEF) 650 mg CR tablet Take 2 tablets by mouth every 8 hours as needed for pain. Not in same 8h period as [place] (hydrocodone Tylenol) 200 Each 5 insulin glargine (LANTUS SOLOSTAR U-100 INSULIN) 100 unit/mL (3 mL) Inject 35 Units subcutaneously every morning. 10 Each 2 blood sugar diagnostic (BLOOD GLUCOSE TEST) test strip Test blood sugars up to 4 times daily as directed. Dx: Type 2 DM - Controlled E11.9 Insulin: Yes. 360 Strip 3 Blood-Glucose Meter monitoring kit Glucose Meter of Choice - Kit - Dx: Type 2 DM - Controlled E11.91 Each 0 Blood-Glucose Meter,Continuous (DEXCOM G6 ADVANCED REGISTERED NURSE) mis Use to check blood sugar at least 4 times a day. 1 Each 0 Blood-Glucose Transmitter (DEXCOM G6 TRANSMITTER) jessica Apply new transmitter every 90 days. Clean transmitter with an alcohol swab with each sensor change. 1 Each 3 Blood-Glucose Sensor (DEXCOM G6 SENSOR) jessica Apply new sensor every 10 days to abdomen. 9 Each 3 Lancets lancets Test blood sugar(s) up to 4 times daily. Dx: Type 2 DM - Controlled E11.9 Insulin: Yes 100 Each 11 HYDROcodone-acetaminophen (NORCO) 5-325 mg per tablet Take 1 tablet by mouth two times a day as needed for pain for up to 30 days. 60 tablet 0 Disposable Gloves (DISPOSABLE LATEX-FREE GLOVES) [facility] Box once every month. 3 Each 11 Insulin Maljamar, Disposable, (BD ULTRA-FINE MADI PEN NEEDLE) 32 gauge x 5/32 Use one needle for each dose. 2/day. 100 Each 11 hydrOXYzine pamoate (VISTARIL) 25 mg capsule Take 1 capsule by mouth three times a day as needed. 30 capsule 2 tiZANidine (ZANAFLEX) 4 mg tablet Take 1 tablet by mouth every 8 hours as needed (muscle spasms). 30 tablet 2 famotidine (PEPCID) 40 mg tablet Take 1 tablet by mouth once daily. 90 tablet 3 ARIPiprazole (ABILIFY) 10 mg tablet Take 1 tablet by mouth once daily. 90 tablet 3 rOPINIRole (REQUIP) 0.25 mg tablet Take 1 tablet by mouth daily at bedtime. 90 tablet 2 [id number]-[id number]-C-gio-bosw (OSTEO BI-FLEX TRIPLE STRENGTH) 750 mg-644 mg- 30 mg-1 mg tab Take 1tablet by mouth two times a day. 180 tablet 3 traZODone (DESYREL) 100 mg tablet Take 1 tablet by mouth daily at bedtime. 90 tablet 1 spironolactone (ALDACTONE) 25 mg tablet Take 1 tablet by mouth once daily. 90 tablet 3 DULoxetine (CYMBALTA) 60 mg capsule Take 1 capsule by mouth once daily. 90 capsule 1 gabapentin (NEURONTIN) 300 mg capsule Take 1 capsule by mouth two times a day. 180 capsule 1 potassium chloride SR (MICRO-K) 8 mEq cpER Take 1 capsule by mouth daily with breakfast. 90 capsule3 Cholecalciferol, Vitamin D3, 125 mcg (5,000 unit) cap Take 1 capsule by mouth once daily. 90 capsule 3 pravastatin (PRAVACHOL) 20 mg tablet Take 1 tablet by mouth daily at bedtime. 90 tablet 3 furosemide (LASIX) 80 mg tablet Take 1 tablet by mouth once daily. 90 tablet 3 Adhesive Bandage ([place] DRESSING) 6 X 6 bndg Apply to affected area once daily. 30 Each 2 Miscellaneous Medical Supply Collagen dressing 2x2 1 Each 3 Blood-Glucose Meter monitoring kit Glucose Meter of Choice - Kit - Dx: Type 2 DM - Controlled E11.9Use twice daily as directed 1 Each 0 ascorbic acid (VITAMIN C ORAL) Take 1 tablet by mouth once daily. (Patient not taking: Reported on 05/10/2023) No current facility-administered medications for this visit. Mammogram Screening due on 11/16/2016 RSV Vaccine(1 - 1-dose 60+ series) Never done Pap Testing due on 11/16/2020 HPV Testing due on 11/16/2020 Colorectal Cancer Screening due on 01/08/2022 Dilated Retinal Exam due on 05/26/2023 EXAM: BP 130/80 Pulse 63 Resp 18 Wt (!) 173.3 kg (382 lb) LMP 12/11/2008 SpO2 96% BMI 77.15 kg/m Pleasant morbidly obese woman in no acute distress. Alert and oriented all spheres. Normal affect and cognition. Speech normal. No deficits to learning or comprehension. Skin warm, dry, pink to lips and nailbeds. Normal turgor. Respirations regular and unlabored. HEENT: NCAT. No scleral icterus or conjunctival injection. TM's clear. Nose and oropharynx free from injection or lesion. Oral membranes moist and pink. No cervical lymph nodes. Thyroid non-tender, no masses, or enlargement. Carotids pulses 2+/4+ without bruits. No JVD with HOB at 30 degrees. Chest is normal shape. Lungs are clear to all bailey with good air exchange through out. HRRR without murmur or gallop. No lifts, heaves, or rubs. Extrem: no clubbing or cyanosis. Edema: none. Legs are tight with obesity. Extremities are warm and pink with prompt capillary refill. 2/4+ pedal pulse. ASSESSMENT/PLAN: 1. Essential hypertension, benign - ICD9: 401.1, ICD10: I10 (primary diagnosis) 2. Benign hypertensive heart disease with CHF, NYHA class 2 (HCC) - ICD9: 402.11, 428.0, ICD10: I11.0 - Controlled - Continue current medications - Recommend home blood pressure monitoring, to bring results to next visit - Encouraged sodium restriction, DASH or Mediterranean diet - Recommend regular aerobic exercise Stable, follows with [facility] 3. SVT (supraventricular tachycardia) (HCC) - ICD9: 427.89, ICD10: I47.10 No recent issues, stable on treatment, follows with [facility] 4. Debility - ICD9: 799.3, ICD10: R53.81 Sisters help her with bathing and hygiene Trying to walk regularly Motivated to lose weight 5. Type 2 diabetes mellitus with peripheral neuropathy (HCC) - ICD9: 250.60, 357.2, ICD10: E11.42 - Controlled High morbidity with diabetes, cardiac issues, and superobesity impairing mobility Resubmit rx for coverage for semaglutide weight loss and diabetes If not accepted, trial of Topamax Educated on new medication administration, warnings and cautions, common side effects, anticipated duration or therapy, and instructions on cessation management to avoid risks if stops medication. Patient choice was discussed in shared decision making. Stressed importance of hydration, and report side effects immediately - SEMAGLUTIDE (WEIGHT LOSS) 0.25 MG/0.5 ML SUBCUTANEOUS PEN INJECTOR - SEMAGLUTIDE (WEIGHT LOSS) 0.5 MG/0.5 ML SUBCUTANEOUS PEN INJECTOR - GABAPENTIN 600 MG TABLET - HEMOGLOBIN A1C 3 months 6. super obesity - ICD9: 278.01, ICD10: E66.01 As above - SEMAGLUTIDE (WEIGHT LOSS) 0.25 MG/0.5 ML SUBCUTANEOUS PEN INJECTOR - SEMAGLUTIDE (WEIGHT LOSS) 0.5 MG/0.5 ML SUBCUTANEOUS PEN INJECTOR 7. Pressure injury of left thigh, stage 2 (HCC) - ICD9: 707.09, 707.23, ICD10: L89.223 Seeing [facility] for management with improvement F/u 3 months Sanjay Abbasi PA-C [facility] History and physical note Author Sania Raphael [facility] May 17, 2023 5:17pm Note Date/Time May 17, 2023 4:5 9pm [facility] [address] [place] [id number] H&P Exam - Wound Care 05/17/23 1650 MR#: [id number] Acct: [id number] Name: WILTON KHAN V Rep #:[id number] : 1960 63 From: Sania RICHARDSON PCP: Dr. Nehemiah Herbert MD Status:REG R CR Location: History of Present Illness Date of Service: 05/17/23 Chief Complaint: Pressure ulceration of the left proximal posterior thigh History of Wound: Wilton Khan is a 63 y/o female who presents today for evaluation and management of a left posterior thigh ulceration. She reports that she has had ulcerations to her posterior legs and buttocks recurrently over the last 4 years. She is not sure how long the current ulceration has been there, maybe a few weeks. She is not able to visualize the area but reports it always feels very tender and uncomfortable. She states that her sister (who also acts as her home health aid) tells her the area is persistently red/purple and with areas of thickened flaky skin. She has been applying a cream provided by a different wound center in the past but isn't sureof the name. She is morbidly obese with a BMI of 77.4. She also has significant osteoarthritis of her knees and hips. This combination severely limits her mobility. She does ambulate short distances at home with a rollator. Outside of the home she utilizes an automated wheelchair. She has a hospital bed at home but is not able to sleep in it because she cannot lift her legs into the bed. She spends most of her time and sleeps in a recliner. She has an offloading pad for her wheelchair but cannot use it because the added height makes it difficultfor her to get into the wheelchair. She does not have an offloading pad for the recliner. She reports she does try to get up and at least stand every hour or so, she really isn't able to change positions. She does also struggle with urinary incontinence. She is not able to utilize depends due to discomfort and/or size. She does her best to keep the area clean and dry but does have difficulty with this at times. She has not been using a barrier cream because she was worried this was drying out her skin and causing the flakiness. She is diabetic with pretty good control, last A1c around 7 by report. She does not smoke. She does not have any known autoimmune conditions. She does not take any blood thinners. She has lost 40 pounds recently. [facility] Medical History Anxiety and depression Chronic back pain COPD (chronic obstructive pulmonary disease) COVID-19 Diabetes mellitus, type II Esophageal reflux Essential hypertension Exertional dyspnea Heart failure History of DVT (deep vein thrombosis) Hyperparathyroidism Immobility Lumbosacral neuritis Mixed hyperlipidemia Morbid obesity JEREMÍAS treated with BiPAP Peripheral neuropathy Pulmonary hypertension Sepsis SVT (supraventricular tachycardia) Vitamin D deficiency Home Medications duloxetine 60 mg capsule,delayed release 60 mg PO DAILY depression 12/02/14 [History Last Taken 03/02/22] aripiprazole 10 mg tablet 10 mg PO QHS Depression 10/21/17 [History Last Taken 03/01/22] pravastatin 20 mg tablet 20 mg PO QHS cholesterol 04/09/19 [History Last Taken 03/01/22] famotidine 40 mg tablet 40 mg PO DAILY stomach 11/08/19 [History Last Taken 03/02/22] insulin glargine 100 unit/mL (3 mL) subcutaneous pen 35 unit SQ DAILY blood sugar 11/08/19 [History Last Taken 03/02/22] hydrocodone-acetaminophen 5-325mg 5mg-325mg 1 tab PO BID PRN Pain 06/29/20 [History Last Taken 03/01/22] potassium chloride 10 mEq capsule,extended release 10 meq PO DAILY supplement 06/29/20 [History Last Taken 03/02/22] acetaminophen 650 mg tablet,extended release 650 mg PO TID PRN Pain 09/14/20 [History Last Taken 03/02/22] spironolactone 50 mg tablet 25 mg PO DAILY fluid 09/14/20 [History Last Taken 03/02/22] trazodone 100 mg tablet 100 mg PO QHS SLEEP 09/14/20 [History Last Taken 03/01/22] cholecalciferol (vitamin D3) 125 mcg (5,000 unit) tablet (Vitamin D3) 125 mcg PODAILY 03/02/22 [History Last Taken 03/02/22] furosemide 80 mg tablet 80 mg PO DAILY FLUID 03/02/22 [History Last Taken 03/02/22] gabapentin 300 mg capsule 300 mg PO Q12H PAIN 03/02/22 [History Last Taken 03/01/22] ibuprofen 200 mg tablet 800 mg PO Q8H PRN Fever 03/02/22 [History Last Taken 03/02/22 07:45] albuterol sulfate 90 mcg/actuation aerosol inhaler 2 inh inhalation Q4H PRN shortness of breath or wheezing 05/17/23 [History Last Taken Unknown] ascorbic acid (vitamin C) 1,500 mg tablet,extended release 1,500 mg PO DAILY 05/17/23 [History Last Taken Unknown] glucosamine 750 [id number] 644 mg-C 30 mg-gio 1 mg tablet (Osteo Bi-Flex Triple Strength) 1 tab PO BID 05/17/23 [History Last Taken Unknown] hydroxyzine pamoate 25 mg capsule 25 mg PO Q8H PRN anxiety 05/17/23 [History Last Taken Unknown] potassium chloride 8 mEq capsule,extended release 8 meq PO DAILY 05/17/23 [History Last Taken Unknown] ropinirole 0.25 mg tablet 0.25 mg PO QHS 05/17/23 [History Last Taken Unknown] tizanidine 4 mg capsule 4 mg PO TID PRN muscle spasticity 05/17/23 [History Last Taken Unknown] Allergy/AdvReac Type Severity Reaction Status Date / Time vancomycin Allergy Rash Verified 01/12/23 12:28 atorvastatin AdvReac Severe myalgias Verified 03/02/22 12:28 amlodipine AdvReac Unknown Verified 03/02/22 12:28 atenolol AdvReac Unknown Verified 03/02/22 12:28 bupropion HCl AdvReac Unknown Verified 03/02/22 12:28 [From Wellbutrin] fluoxetine HCl [From Prozac] AdvReac Unknown Verified 03/02/22 12:28 meloxicam [From Mobic] AdvReac Unknown Verified 03/02/22 12:28 metoprolol AdvReac Unknown Verified 03/02/22 12:28 pregabalin [From Lyrica] AdvReac Unknown Verified 03/02/22 12:28 quetiapine fumarate AdvReac Unknown Verified 03/02/22 12:28 [From Seroquel] quinapril HCl [From Accupril] AdvReac Unknown Verified 03/02/22 12:28 risperidone AdvReac Unknown Verified 03/02/22 12:28 rofecoxib [From Vioxx] AdvReac Unknown Verified 03/02/22 12:28 sitagliptin phosphate AdvReac Unknown Verified 03/02/22 12:28 [From Januvia] venlafaxine HCl AdvReac Unknown Verified 03/02/22 12:28 [From Effexor] Family History Mother Hypertension CVA (cerebral vascular accident) Diabetes Heart disease Father Hypertension COPD (chronic obstructive pulmonary disease) Sister Hypertension Sister Hypertension Diabetes Brother Hypertension Diabetes Brother Hypertension Diabetes Brother Hypertension CAD (coronary artery disease) History of coronary artery bypass surgery, Onset Age: 48 Diabetes Surgical History History of hernia repair History of laparoscopic cholecystectomy History of left heart catheterization (LHC) (~05/23/12) Social History household members: none Smoking Status: Former smoker alcohol intake: never substance use type: does not use Vital Signs Vital Signs Vital Signs: 05/17/23 13:15 Temperature 97.3 F L Temperature Source Temporal Pulse Rate 75 Respiratory Rate 16 Blood Pressure 139/72 H Blood Pressure Mean 94 Blood Pressure Source Monitor Blood Pressure Position Sitting Blood Pressure Location Left Forearm Oxygen Delivery Method Room Air Weight Weight: 383 lb Body Mass Index (BMI) 77.3 Physical Exam Const alert, oriented x3 and no apparent distress Nutritional Appearance: morbidly obese HEENT normocephalic, hearing grossly normal bilaterally, external ears normal and external nose normal Eyes EOMs intact bilaterally General Eye: normal appearance of both eyes Neck General: normal visual inspection and trachea midline Resp normal respiratory effort, normal air movement, no retractions and no use of accessory muscles Effort and Inspection: able to speak in complete sentences Extremity General Extremity: edema bilateral (mild) Skin Wounds: wounds noted Wound Narrative: She has persistent red/purple discoloration diffusely across her bilateral posterior thighs and buttocks consistent with chronic pressure injury. She has one focal area with skin breakdown on the L posterior proximal thigh, measurements as noted in debridement section. She has scattered areas with thickened and flaking skin bilaterally but without associated open wound. There is no warmth, foul odor, focal swelling, significant drainage. Neuro oriented x3, CN's II-XII intact bilaterally, moves all extremities and no focal motor deficits Speech: speech normal Debridement Note Debridement Note Wound debrided: L posterior thigh Laterality: Left Wound Grade/Stage: Stage 2 Type of Debridement: Excisional debridement Anesthesia Used: 5% Lidocaine Gel Depth: Down to and including healthy tissue Percentage of wound debrided: 100 Instrument Used: 3mm curette Tissue Removed: devitalized tissue Severity: Limited To Skin Breakdown Amount of bleeding with debridement: Mild Bleeding Controlled with: Pressure Patient tolerated procedure: Patient tolerated procedure well Post-Debridement Measurements and Additional Note: Post-Debridement Measurements/Treatment - Nurse 1 - General Ulcer Assessment Start: 05/17/23 13:14 Freq: Status: Active Protocol: [facility] Activity Type Activity Date Activity User E-sign Co-sign Detail Recorded Client Recorded Date Recorded By Document 05/17/23 13:15 CP Desktop 05/17/23 13:31 CP 05/17/23 13:15 - Today's Visit Information Type of service Initial Visit Arrival Mode Wheelchair Patient Identification Verified (Name & Yes ) Patient Requires Transmission-Based No Precautions Safety Precautions Fall Prevention Finger Stick Blood Sugar(mg/dl) (if 137 indicated): Blood Sugar Stated by Patient Height and Weight Height 4 ft 11 in Weight 383 lb Weight in Pounds 383.0 lbs Weight Measurement Method Stated by Patient Body Mass Index (BMI) 77.3 BMI Classification Obese BSA - Jamin 2.43 Vital Signs Temperature (97.8 F-99.1 F) 97.3 F L Temperature Source Temporal Pulse Rate (60-100) 75 Pulse Location Monitor Respiratory Rate (12-18) 16 Respiratory rate source Observation Oxygen Delivery Method Room Air Blood Pressure (90/60-120/80) 139/72 H Blood Pressure Mean 94 Source Monitor Position Sitting Blood Pressure Location Left Forearm History Since Last Visit- (Skip if this is Patient's initial visit) Left Footwear Regular Shoe Right Footwear Regular Shoe Pain Scale: 0-10 Numeric Is Patient Pain Free? No back, knees -Description Aching -Intensity 8 -Duration (hours) Chronic -Pain Behavior No Change in Behavior -Alleviating Factors/Interventions Distraction -Effectiveness of Alleviating Factor/ Moderately Intervention effective Communication Assessment Preferred language Togolese Sales Project Engineer Required No Able to Read Yes Able to Write Yes Communication Tools None Right Hearing Abillity Normal Left Hearing Abillity Normal Visual Assistive Devices None Teaching Assessment Preferences Verbal,Written, Demonstration Barriers to Learning Knowledge Deficit Readiness To Learn Excellent Willingness to Engage in Self Management High Activies Readiness to Engage in Self Management High Activities Anxiety Level Calm Cooperation Cooperative Perception Coherent Interest in Health Problem Asks Questions Education Importance Acknowledges Need Does Patient Smoke tobacco or other No substances Smoking Status Former smoker Is Patient Diabetic Yes 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 left post upper leg -Current Size (cm) - Length 0.1 -Current Size (cm) - Width 0.1 -Current Size (cm) - Depth 0.1 -Total Square Cm 0.01 -Photo Taken Yes -Epithelialization Large 67-100% -Tunneling No -Undermining/Tunneling No -Circular Undermining No -Classification - Thickness Partial Thickness -Exudate Amt None Present -Wound Margin Flat & Intact -Granulation Amt None Present (0 %) -Slough/Fibrin No -Necrosis Amt None Present (0 %) -Structure Exposed N/A -Texture (Yoon-wound Skin Appearance) No Abnormality -Moisture (Yoon-wound Skin Appearance) No Abnormality -Color (Yoon-wound Skin Appearance) Ecchymosis -Temperature (Yoon-wound Skin No Abnormality Appearance) (Pt Warm) -Tenderness on Palpation (Yoon-wound No Skin Appearance) -Ulcer Cleansing Rinsed/ Irrigated with Saline WC - Nurse 2 - General Ulcer CM Notes Start: 05/17/23 13:14 Freq: Status: Active Protocol: Activity Type Activity Date Activity User E-sign Co-sign Detail Recorded Client Recorded Date Recorded By Document 05/17/23 13:56 GM Desktop 05/17/23 14:12 05/17/23 13:56 Wound Center Nurse 2 -Time 13:56 -Correct Patient Yes -Correct Side, Site, Position Yes -Correct Procedure Yes -Procedure Performed Yes -Type of Procedure Debridement -Clinical Debridement Subcutaneous -Tissue Removed Subcutaneous -Post Debridement (cm) - Length 0.5 -Post Debridement (cm) - Width 0.5 -Post Debridement (cm) - Depth 0.1 -Total Square (Post) (cm) 0.25 -Area of Debridement (cm) - Length 0.5 -Area of Debridement (cm) - Width 0.5 -Total Square (Area) (cm) 0.25 -Tunneling No -Undermining/Tunneling No -Circular Undermining No -Wound/Ulcer Outcome Not Healed -Ulcer Cleansing Rinsed/ Irrigated with Saline -Foul Odor after Cleansing No -Bioengineered Tissue No -Bleeding Controlled with Pressure -Treatment Response Procedure Tolerated Well -Debridement - Subq, 1st 20sq cm Yes Pain Scale: 0-10 Numeric Is Patient Pain Free? Yes WC - Nurse 3 - General Ulcer D/C NN Start: 05/17/23 13:14 Freq: Status: Active Protocol: Activity Type Activity Date Activity User E-sign Co-sign Detail Recorded Client Recorded Date Recorded By Document 05/17/23 14:20 GM Desktop 05/17/23 14:20 GM 05/17/23 14:20 Wound Care Center Nurse 3 2. left post upper leg -Ulcer Cleansing Not Cleansed -Foul Odor after Cleansing No -Primary Dressing Applied Mepilex Border, Promogran -Mepilex Border 3 -Promogran 1 Pain Scale: 0-10 Numeric Is Patient Pain Free? Yes WC - Visit Discharge Discharge Condition Stable Ambulatory Status Wheelchair Transportation Private Auto Clinical Summary of Care Provided Yes Charges/Coding Visit Charges Office Visits / Consults: 93915 OV L4 Est 30min Procedures Integumentary 111xxx-113xx: 53599 Shanna subq tissue 20 sq cm/< Assessment/Plan Assessment/Plan (1) Morbid obesity with BMI of 70 and over, adult: CODE(S): E66.01 - Morbid (severe) obesity due to excess calories; Z68.45 -Body mass index [BMI] 70 or greater, adult (2) Pressure ulcer of upper thigh: CODE(S): L89.209 - Pressure ulcer of unspecified hip, unspecified stage PLAN: Plan For wound dressings, will apply lightly moistened Promogran to the wound bed and cover with silicone border foam dressing. Change daily or more often as needed to keep clean and dry. With dressing changes, cleanse the area with antibacterial soap and water and pat to dry. Okay to shower and allow soap and water to rince over the area. For care of the periwound skin, I recommend applying a fragrance free moisturizer such as Vanicream, Eucerin, etc to the bilateral posterior thighs and buttocks. Allow the lotion to soak in. Then apply a barrier cream such as Desitin, A+D, Triad, Calmoseptine to the buttocks/intertriginous areas to protect from chronic moisture associated with skin folds and incontinence. These wounds develop secondary to chronic pressure injury. We discussed how this occurs and that it will continue to be a recurrent issue unless pressure can be adequately offloaded. I strongly recommend obtaining an offloading pad for her recliner. May also be of benefit to look into lower beds which may allow her to get into the bed. She would significantly benefit from a low air loss mattress if she were to have a bed that was accessible to her. We will see if there are options for coverage through her insurance. Also strongly advised changing positions/standing/walking frequently throughout the day, every 30-60 minutes. Of course, we discussed the importance of continued weight loss and she is encouraged to continue with this effort. We discussed available nutritional supplements such as Jonah/Glucerna. She is encouraged to continue with good glycemic control. She will return in 1 week or sooner as needed. 05/17/231716 <Electronically signed by Sania RICHARDSON> Cosigner Signature (if applicable): CC: ~ Signed [facility] Work Phone: [phone] 906-221803-26-2024 Miscellaneous Notes* Telephone Encounter - Yokasta Reese RN - 05/15/2023 1:34 PM EDT Alcira with [facility] called and asked to have last OV note faxed to them. Faxed to # [phone] documented in this encounterPremier [facility]03-25-2024 Miscellaneous Notes* Telephone Encounter - Louie Wade Ma - 05/14/2023 4:38 PM EDT Quit Trulicity d/t nausea and cramps. Advised to discuss at next office visit * Telephone Encounter - Sanjay Abbasi PA-C - 05/14/2023 3:00 PM EDT Can discuss at rescheduled appointment She was previously on dulaglutide/ Trulicity: why was it stopped? Micah Fraga PA-C * Telephone Encounter - Estefani Bell LPN - 05/14/2023 10:27 AM EDT Pt calls to cancel 05/28/23 appt stating she has another appt at that time and didn't realize it. Pt reports she will call back to reschedule. Pt is also asking if she can try Ozempic for weight loss. Estefani Bell LPN documented in this encounterPremier Health [facility]03-21-2024 Instructions* Patient Instructions* Joi Markham APRN.CNS - 05/10/2023 10:45 AM EDT 1) Increase Lantus to 35 units in the morning 2) Referred to wound care - call [facility] wound care 3) Follow up with Elroy in May 4) Call next with blood sugar report documented in this encounterPremier Health [facility]03-21-2024 History of Present illness Narrative* Joi Markham APRN.CNS - 05/10/2023 10:17 AM EDT This is a 63 year old female who presents today with: Patient presents with: Diabetes: Discuss elevated blood sugars Neck Mass: Does not hurt HISTORY OF PRESENT ILLNESS: Wilton Khan is a 63 year old female. Patient presents with: Diabetes: Discuss elevated blood sugars Neck Mass: Does not hurt BSS has been high in the last 3-4 days Has been as high as 300. Not attributed to anything she has eaten. Quit Trulicity d/t nausea and craps In the morning 180 fasting, as day progresses mid 200's REVIEW OF SYSTEMS GENERAL: + weight loss- 420- down to 382, no malaise, no fevers/chills HEENT: Negative for frequent or significant headaches, No changes in hearing or vision. NECK: Negative for lumps, goiter, pain and significant neck swelling- something is wrong with right base of neck RESPIRATORY: Negative for cough, hemoptysis, wheezing, always a little dyspnea or shortness of breath CARDIOVASCULAR: Negative for chest pain, always leg swelling, no orthopnea, + palpitations d/t SVT GI: No nausea, vomiting, or diarrhea/constipation. No hematochezia/melena. No heartburn or reflux symptoms. : No history of dysuria, frequency or incontinence MUSCULOSKELETAL: A lot of joint pain or swelling in knees and low back SKIN: Upper posterior leg lesions- bandages, rash, and itching ENDOCRINE: Negative for cold or heat intolerance, polyuria, polydipsia and goiter NEURO: No history of headaches, syncope, paralysis, seizures, with intention tremors MOOD: Negative for depression, anxiety, or suicidal ideation. In the past yes, not now. PAST MEDICAL HISTORY: PAST MEDICAL HISTORY Diagnosis Date Abnormal glandular Papanicolaou smear of cervix 05/30/05 ABNL GLANDULAR PAP SMEAR CERVIX Acute gastritis without mention of hemorrhage Anxiety state, unspecified Arrhythmia Chronic cholecystitis Chronic obstructive pulmonary disease (COPD) ([facility]) Congestive heart failure ([facility]) 10/03/2011 Diabetes ([facility]) diabetes II 2010 Diaphragmatic hernia without mention of obstruction or gangrene Dysthymic disorder Depression (non-psychotic) Esophageal reflux Essential hypertension, benign Generalized OA Hyperprolactinemia ([facility]) 10/13/2005 Localized osteoarthrosis not specified whether primary or secondary, lower leg Major depressive disorder, recurrent episode Mucous polyp of cervix 07/19/05 Other and unspecified anterior pituitary hyperfunction ([facility]) 10/13/05 elevated prolactin level-was normal in 2011 PMH - PAST MEDICAL HISTORY OF sleep apnea PMH - PAST MEDICAL HISTORY OF sleep apnea SVT (supraventricular tachycardia) 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 Type 2 diabetes mellitus without complication, with long-term current use of insulin ([facility]) 12/22/2013 PAST SURGICAL HISTORY Procedure Laterality Date BIOPSY CERVIX SINGLE/MULT/EXCISION OF LESION SPX 07/19/2005 endocervical polyp COLONOSCOPY FLX DX W/COLLJ SPEC WHEN PFRMD 01/09/2012 Colonoscopy repeat 10 years COLPOSCOPY CERVIX UPPER/ADJACENT VAGINA Colposcopy EGD TRANSORAL BIOPSY SINGLE/MULTIPLE 01/16/2007 ESOPHAGOGASTRODUODENOSCOPY TRANSORAL DIAGNOSTIC 01/09/2012 EGD HERNIA REPAIR HX 11/2015 ventral HYSTEROSCOPY DX 12/17/2014 D&C LAPS SURG CHOLECYSTECTOMY W/CHOLANGIOGRAPHY 05/15/2008 PARATHYROID ALLERGIES Lyrica [Pregabalin], Accupril [Quinapril Hcl], Actos [Pioglitazone], Amlodipine, Atenolol, Atorvastatin, Celebrex [Celecoxib], Effexor [Venlafaxine Hcl], Januvia [Sitagliptin], Metoprolol, Mobic [Meloxicam], Prozac [Fluoxetine Hcl], Remeron [Mirtazapine], Risperidone, Seroquel [QuetiapineFumarate], Vancomycin, Vioxx [Rofecoxib], and Wellbutrin [Bupropion Hcl] MEDICATIONS Current Outpatient Medications Medication Sig Blood-Glucose Meter,Continuous (DEXCOM G6 ADVANCED REGISTERED NURSE) misc Use to check blood sugar at least 4 times a day. Blood-Glucose Transmitter (DEXCOM G6 TRANSMITTER) jessica Apply new transmitter every 90 days. Clean transmitter with an alcohol swab with each sensor change. Blood-Glucose Sensor (DEXCOM G6 SENSOR) jessica Apply new sensor every 10 days to abdomen. acetaminophen (ARTHRITIS PAIN RELIEF) 650 mg CR tablet Take 2 tablets by mouth every 8 hours as needed for pain. Not in same 8h period as [place] (hydrocodone Tylenol) Lancets lancets Test blood sugar(s) up to 4 times daily. Dx: Type 2 DM - Controlled E11.9 Insulin: Yes HYDROcodone-acetaminophen (NORCO) 5-325 mg per tablet Take 1 tablet by mouth two times a day as needed for pain for up to 30 days. Disposable Gloves (DISPOSABLE LATEX-FREE GLOVES) [facility] Box once every month. Insulin Maljamar, Disposable, (BD ULTRA-FINE MADI PEN NEEDLE) 32 gauge x 5/32 Use one needle for each dose. 2/day. hydrOXYzine pamoate (VISTARIL) 25 mg capsule Take 1 capsule by mouth three times a day as needed. tiZANidine (ZANAFLEX) 4 mg tablet Take 1 tablet by mouth every 8 hours as needed (muscle spasms). famotidine (PEPCID) 40 mg tablet Take 1 tablet by mouth once daily. ARIPiprazole (ABILIFY) 10 mg tablet Take 1 tablet by mouth once daily. rOPINIRole (REQUIP) 0.25 mg tablet Take 1 tablet by mouth daily at bedtime. mmguolxf-hznr-iim8-C-gio-bosw (OSTEO BI-FLEX TRIPLE STRENGTH) 750 mg-644 mg- 30 mg-1 mg tab Take 1tablet by mouth two times a day. traZODone (DESYREL) 100 mg tablet Take 1 tablet by mouth daily at bedtime. spironolactone (ALDACTONE) 25 mg tablet Take 1 tablet by mouth once daily. DULoxetine (CYMBALTA) 60 mg capsule Take 1 capsule by mouth once daily. gabapentin (NEURONTIN) 300 mg capsule Take 1 capsule by mouth two times a day. potassium chloride SR (MICRO-K) 8 mEq cpER Take 1 capsule by mouth daily with breakfast. Cholecalciferol, Vitamin D3, 125 mcg (5,000 unit) cap Take 1 capsule by mouth once daily. pravastatin (PRAVACHOL) 20 mg tablet Take 1 tablet by mouth daily at bedtime. furosemide (LASIX) 80 mg tablet Take 1 tablet by mouth once daily. insulin glargine (LANTUS SOLOSTAR U-100 INSULIN) 100 unit/mL (3 mL) Inject 25 Units subcutaneously daily at bedtime. Adhesive Bandage ([place] DRESSING) 6 X 6 bndg Apply to affected area once daily. Miscellaneous Medical Supply Collagen dressing 2x2 blood sugar diagnostic (BLOOD GLUCOSE TEST) test strip Test blood sugars up to 4 times daily as directed. Dx: Type 2 DM - Controlled E11.9 Insulin: Yes. Blood-Glucose Meter monitoring kit Glucose Meter of Choice - Kit - Dx: Type 2 DM - Controlled E11.9 Phentermine HCl (ADIPEX-P) 37.5 mg tablet Take 1 tablet by mouth once daily for 90 days. collagenase (SANTYL) ointment Apply to affected area once daily. (Patient not taking: Reported on 05/10/2023) dulaglutide (TRULICITY) 3 mg/0.5 mL pen injector Inject 3 mg subcutaneously one time a week. albuterol HFA (VENTOLIN HFA) 90 mcg/actuation inhaler Inhale 2 Puffs as instructed every 4 hours asneeded for wheezing/shortness of breath. ZINC ORAL Take by mouth. (Patient not taking: Reported on 05/10/2023) collagen/biotin/ascorbic acid (COLLAGEN 1500 PLUS C ORAL) Take by mouth. (Patient not taking: Reported on 05/10/2023) Blood-Glucose Meter monitoring kit Glucose Meter of Choice - Kit - Dx: Type 2 DM - Controlled E11.9Use twice daily as directed ascorbic acid (VITAMIN C ORAL) Take 1 tablet by mouth once daily. (Patient not taking: Reported on 05/10/2023) No current facility-administered medications for this visit. FAMILY HISTORY Problem Relation Age of Onset Hypertension Mother Heart Mother concha stroke Diabetes Mother Stroke Mother Massive- Arthritis Mother Osteoarthritis Hypertension Father COPD Father Hypertension Sister Arthritis Sister Hypertension Sister Diabetes Sister Arthritis Sister Hypertension Sister Diabetes Sister Arthritis Sister Hypertension Sister Diabetes Sister other (Rheumatoid Arthritis) Sister Heart Brother Triple Bypass Heart Brother Heart Brother Heart Maternal Aunt Heart Maternal Uncle Social History Tobacco Use Smoking status: Former Packs/day: 1.00 Years: 15.00 Additional pack years: 0.00 Total pack years: 15.00 Types: Cigarettes Quit date: 12/20/1994 Years since quittin.4 Smokeless tobacco: Never Vaping Use Vaping Use: Never used Substance Use Topics Alcohol use: No Drug use: No EXAM: BP 118/60 (BP Site: Right Arm) Pulse 74 LMP 12/11/2008 SpO2 94% PHYSICAL EXAM: General Appearance: Well appearing, alert, in no acute distress, well-hydrated, well nourished.. Skin: Skin color, texture, turgor normal, no suspicious rashes or lesions. Head: Normocephalic, no masses, lesions, tenderness or abnormalities. Lungs: Lungs clear to auscultation. No wheezing, rhonchi, rales.. Heart: RRR without murmur, gallop, or rubs. No ectopy. Abdomen: Normal abdominal exam, Abdomen soft, non-tender. Bowel sounds normal. No masses, organomegaly. Musculoskeletal: No joint swelling, deformity, or tenderness. Integ: Pressure sores upper thigh near gluteal fold LABS: ASSESSMENT/PLAN: 1. Diabetes mellitus type 2 with ketoacidosis, uncontrolled ([facility]) - ICD9: 250.12, ICD10: E11.10 (primary diagnosis) uncontrolled - LANTUS SOLOSTAR U-100 INSULIN 100 UNIT/ML (3 ML) SUBCUTANEOUS PEN increase to 35 units qam - Call in 1 week with BSS 2. Pressure injury of elbow, stage 3, unspecified laterality (HCC) - ICD9: 707.01, 707.23, ICD10: L89.003 Open areas, turning black - ACETAMINOPHEN ER 650 MG TABLET,EXTENDED RELEASE - CONSULT TO WOUND CARE [facility] USE ONLY Discussed treatment plan and patient voices understanding. Patient's questions answered appropriately. Medications and potential side effects were discussed and patient voices understanding. Return to the office as scheduled or as needed for worsening/no improvement. Joi Markham APRN.CNS The patient indicates understanding of these issues and agrees with the plan. documented in this encounterPremier [facility]03-18-2024 Miscellaneous Notes* Telephone Encounter - Christal Rasmussen RN - 05/07/2023 2:26 PM EDT Patient calling with concern for elevated blood sugars. Reports they have been ranging 200-300's. Uses Dexcom G6. Pt taking Lantus 25 units daily every morning. Pt is not taking Trulicity-states it caused stomach problems for her. Pt reports she has been walking, eating meats and salads with only lettuce and cheese and she is not sure why her blood sugars are staying elevated. States she has had some minor headaches at times. Denies any other signs or sx's of hyperglycemia. Appt made with Joi Markham CNP for evaluation this week. Christal Rasmussen RN documented in this encounterPremier Health [facility]02-14-2024 Miscellaneous Notes* Telephone Encounter - Jocelin Mcrae - 04/04/2023 4:28 PM EST Patient has been identified by name and date of : Yes, Provider Hubert Abbasi PA-C Date 04/04/2023 Time 4:29 pm Patient phones for refill(s): Requested Prescriptions Pending Prescriptions Disp Refills acetaminophen (ARTHRITIS PAIN RELIEF) 650 mg CR tablet 200 Each 5 Sig: Take 2 tablets by mouth every 8 hours as needed for pain. Not in same 8h period as [place] (hydrocodone Tylenol) Date of last office visit in primary care: 02/26/2023 Date of next office visit in primary care: 05/28/2023 Please advise. Thank you. Jocelin Roberts. documented in this encounterPremier [facility]02-13-2024 Miscellaneous Notes* Telephone Encounter - Sanjay Rondon RN - 04/03/2023 7:45 AM EST Patient reports her insurance no longer cover's true metrix. Pended new meter w/strips for generic with note to pharmacy stating to give patient what is covered by insurance. Patient also wants a Dexcom. Pended. Jostin Mohan. documented in this encounterPremier Health [facility]01-25-2024 NoteHNO ID: [id number] Author: LOU TURK LPN Service: ? Author Type: LICENSED NURSE Type: Progress Notes Filed: 03/15/2023 14:30 Note Text: Review of Systems Constitutional: Positive for activity change. Negative for chills, fever and unexpected weight change. Gastrointestinal: Negative for bowel retention or incontinence Genitourinary: Negative for difficulty urinating. Negative for bladder retention or incontinence Musculoskeletal: Positive for arthralgias, back pain, gait problem, joint swelling, neck pain and neck stiffness. Negative for myalgias. Neurological: Positive for weakness and numbness. Negative for headaches. Psychiatric/Behavioral: Positive for dysphoric mood and sleep disturbance. Negative for suicidal ideas. The patient is nervous/anxious.[facility]01-24-2024 NoteHNO ID: [id number] Author: KOJO ANDERSEN MD Service: ? Author Type: Physician Type: Progress Notes Filed: 03/15/2023 14:30 Note Text: [facility] Today's Date: 03/15/2023 Name: Wilton Khan : 1960 Purpose: New Patient Consultation Chief complaint: lower back pain and leg pain/DDD/ in a powerchair Referring Clinician: Sanjay Abbasi PA-C Pertinent Past Medical History: DM type 2 with peripheral neuropathy, Pain disorder with psychological factors, SVT, HTN, Benign hypertensive heart disease with CHF, NYHA class 2, JEREMÍAS, Former smoker, Liver disease, Umbilical hernia, hyperparathyroidism, DVT, DDD cervical, lumbar, OA bilat. Knee, Pressure injury of left thigh, stage 3, MDD, Obesity, Anxiety, Pertinent Past Surgeries: Hernia repair (ventral), History of Present Illness (HPI): 03/14/2023 - Initial HPI (Obtained by Kojo Andersen M.D.). DURATION AND ONSET: The pain complaint has been present for approximately 20 years. The pain had a gradual onset. The mechanism of injury is unknown. She uses a power wheelchair in the community. She uses a rollator at home. She saw Orthopedics 5 years ago, was told that she needed to lose weight before they could replace She has been relying primarily upon medications to help with her pain. She previously saw Dr. Pacheco's office for pain management, stopped attending because all he wanted to do was give her injections. Reports had epidurals and that they stopped working after a time. Steroid injections in the knees stopped helping also. Hips have not been injected. She has lost about 40 pounds in the past 6 months. RED FLAG SYMPTOMS: denies red flags. PAIN DESCRIPTION: Timing: Constant Character: Aching, Cramping Primary Location: bilateral knees, hips and low back Radiation: none Exacerbating factors: Standing, Walking Relieving factors: Reclining Interferes with: physical activity Current Pain Medications: Neuropathics: Gabapentin 300mg BID and Cymbalta 60mg (for mood) NSAIDS: Motrin 800mg BID PRN Muscle Relaxants: Zanaflex 4mg PRN - takes intermittently for muscle cramps Topicals: Other Prescription or OTC Pain Medications: Arthritis Tylenol 650mg BID PRN Opioids (when applicable): [place] 5/325 mg BID PRN Greenlight Questionnaire GREENLIGHT Completed Date 03/15/2023 Opioid Risk Tool Opiod Risk Tool Date Completed 03/15/2023 GERRY-7 Anxiety Score 9 Completed Date 03/15/2023 PHQ9P Score 7 Completed Date 03/15/2023 Anti-depressants or Mood-Stabilizers: Trazodone 100mg, Abilify 10mg Anti-Coagulants: None Therapies Attended (Current or Most Recent): No Current Therapies - last attended 2 years ago; does not recall the exercises (was home therapy) - uses medical transport She tries to walk for exercises when she can Treatment History: PAIN PROCEDURES: DATE PROCEDURE IMPROVEMENT To date, no interventional pain management procedures performed at this practice. MEDICATIONS Taken TO DATE (for the chief complaint(s)): Neuropathics: Neurontin (Gabapentin), Cymbalta (Duloxetine); Lyrica - anaphylaxis (tolerates Neurontin); Effexor - Swelling and high blood pressure; NSAIDS: Motrin (Ibuprofen), Naprosyn (Naproxen), Voltaren (Diclofenac), Relafen (Nabumetone); Mobic - GI upset; Celebrex - Swelling Muscle Relaxants: Flexeril (Cyclobenzaprine), Robaxin (Methocarbamol), Zanaflex (Tizanidine), Lioresal (Baclofen) Topicals: None Other Prescription or OTC Pain Medications: Arthritis Pain Opioids: Hydrocodone (eg [place]) Data Reviewed Today: Allergies: ALLERGIES Allergen Reactions Lyrica [Pregabalin] Anaphylaxis Not sure if accurate. Can take gabapentin. Patient is unsure of reaction. Accupril [Quinapril* Intolerance dizziness Actos [Pioglitazone] Swelling Amlodipine Swelling Leg edema Atenolol Swelling Atorvastatin Intolerance Muscle cramps and weakness Celebrex [Celecoxib] Swelling Effexor [Venlafaxin* swelling high blood pressure Januvia [Sitaglipti* GI Upset, Other: See Comments Patient states she couldn't eat Metoprolol Swelling Mobic [Meloxicam] GI Upset Prozac [Fluoxetine * Intolerance tremor Remeron [Mirtazapin* Rash Risperidone Mental Status Change Seroquel [Quetiapin* hypertension,swelling Vancomycin Itching, Other: See Comments, Rash red all over Other reaction(s): Other: See Comments red all over Vioxx [Rofecoxib] GI Upset Wellbutrin [Bupropi* Intolerance nightmares Social History Tobacco Use Smoking status: Former Packs/day: 1.00 Years: 15.00 Additional pack years: 0.00 Total pack years: 15.00 Types: Cigarettes Quit date: 12/20/1994 Years since quittin.2 Smokele (more content not included)...[facility]01-17-2024 Miscellaneous Notes* Telephone Encounter - Micaela Reis LPN - 03/07/2023 1:52 PM EST Phoned patient and went over notes from Dr Herbert with understanding. Patient said she has been using the powder for 3 to 4 days now, not really helping. She said she can give it more time if needed. Patient said she stopped the Adipex yesterday was causing insomnia for her. * Telephone Encounter - Nehemiah Herbert MD - 03/07/2023 1:38 PM EST Diflucan has in an interaction with several of her meds. Was she using the powder when it started. If only using three or four days would not be enough time to take care of it. * Telephone Encounter - Christal Rasmussen RN - 03/07/2023 1:16 PM EST Patient reports she has had redness, itching and irrigation under her abdominal folds, groin areas and external vaginal area. Began about 3-4 days ago. Nystatin Powder has been ineffective. Pt requesting script for Diflucan (pended) or other recommendation. Please advise patient. Thank you. documented in this encounterPrem[facility]12-08-2023 Miscellaneous Notes* Telephone Encounter - Keo Napier - 01/26/2023 1:28 PM EST Pt notified. Keo Napier * Telephone Encounter - Sanjay Abbasi PA-C - 01/26/2023 1:17 PM EST Telephone on 01/26/23 HGB A1C COMP METABOLIC PANEL CBC ALBUMIN/CREAT RATIO RND UR * Telephone Encounter - Marlee Pennington RN - 01/26/2023 9:50 AM EST Patient calls and states that she has appointment with provider on 02/08/2023. Patient asking if provider wants patient to get labs done prior to appointment? Please review and advise, Marlee Pennington RN documented in this encounterPremier [facility]12-06-2023 Miscellaneous Notes* Telephone Encounter - Sanjay Abbasi PA-C - 01/24/2023 2:27 PM EST The following approved medication requests have been transmitted electronically. Requested Prescriptions Signed Prescriptions Disp Refills HYDROcodone-acetaminophen (NORCO) 5-325 mg per tablet 60 tablet 0 Sig: Take 1 tablet by mouth two times a day as needed for pain for up to 30 days. Authorizing Provider: Sanjay ABBASI hydrOXYzine pamoate (VISTARIL) 25 mg capsule 30 capsule 2 Sig: Take 1 capsule by mouth three times a day as needed. Authorizing Provider: Sanjay ABBASI PA-C * Telephone Encounter - Dilia Mukherjee - 01/23/2023 2:32 PM EST Pharmacy verified in [facility] Patient has been identified by name and date of : Yes Patient aware RX will be sent to pharmacy. No need to notify patient. Patient phones for refill(s): Requested Prescriptions Pending Prescriptions Disp Refills HYDROcodone-acetaminophen (NORCO) 5-325 mg per tablet 60 tablet 0 Sig: Take 1 tablet by mouth two times a day as needed for pain for up to 30 days. hydrOXYzine pamoate (VISTARIL) 25 mg capsule 30 capsule 2 Sig: Take 1 capsule by mouth three times a day as needed. Date of last office visit : 11/07/2022 Date of next office visit : 02/08/2023 Last 2 Encounter Wt Readings: Date: Wt: 10/02/2022 0 kg () 09/21/2022 176.9 kg (390 lb) Not applicable Please advise. Dilia Turcios documented in this encounterPremier Health [facility] Center11-28-2023 Miscellaneous Notes* Telephone Encounter - Micaela Reis LPN - 01/16/2023 9:53 AM EST Patient calling she did collect the urine sample and sister took sample into the lab early this morning. Aware rx sent to pharmacy, she can begin taking if able to get sister to get rx from pharmacy.Advised when culture results come in will be notified if needs to change antibiotic rx. * Telephone Encounter - La Babb RN - 2023 12:45 PM EST Called pt again and she states she has not attempted to get a ride. She forgot to call her director of student services. She states she will try to have someone come in to get a container and wipes, then she will get the specimen and try to have someone bring it back in today. Pt states she will need a hat though because she is unable to urinate straight into the sterile container. States that is what she always has to do. Reminded several times that she needs to get the urine sample prior to starting the antibiotic. Verbalizes understanding. She says thank you for the birthday wishes * Telephone Encounter - Brittany Valencia LPN - 2023 11:05 AM EST Left message to call and speak with nurse. * Telephone Encounter - Sanjay Abbasi PA-C - 2023 10:09 AM EST Tell her happy birthday. Please come in as soon as possible to give urine specimen prior to starting ATB- I realize the difficulties of transportation. Would it be possible to have someone come in and get the sterile container and wipes and have her collect at home and bring the specimen in? Nurse Triage on 01/15/23 URINALYSIS, WITH MICROSCOPIC URINE CULTURE The following approved medication requests have been transmitted electronically. Requested Prescriptions Signed Prescriptions Disp Refills nitrofurantoin monohydrate and macrocrystal (MACROBID) 100 mg capsule 14 capsule 0 Sig: Take 1 capsule by mouth two times a day with meals for 7 days. Sanjay Abbasi PA-C * Telephone Encounter - La Babb RN - 2023 8:15 AM EST Protocol recommends see provider in 24 hours. Pt states she is unable to get a ride due to being tere power chair and her insurance needing 48 hours notice. Care plan reviewed with patient. Patient voices understanding. Advised patient that if symptoms get worse to call us back. Pt encouraged to try and get a ride in if possible. Pt uses [facility] in [place]. Reason for Disposition Side (flank) or lower back pain present Answer Assessment - Initial Assessment Questions 1. SYMPTOM: burning, frequency & urgency with urination, terrible odor, leaking of urine worse than normal and lower back pain in the center and to the left side 2. ONSET: Symptoms started on and the lower back pain started on Sunday 3. PAIN: Pain in lower back is a 5/10 4. CAUSE: pt thinks she has a UTI 5. OTHER SYMPTOMS: See above. Denies fever, blood in the urine or pain with urination except for the burning. 6. : N/A Protocols used: Urinary [id number] documented in this encounterPremier [facility]11-21-2023 Miscellaneous Notes* Telephone Encounter - Louie Wade Ma - 01/09/2023 1:22 PM EST Completed forms faxed * Telephone Encounter - Keo Napier - 01/08/2023 7:00 PM EST Type of form: CMN ([facility]) Form received via fax When form is completed, Fax form to [phone] Form has been forwarded to Provider Mailbox: CARLOS Parra documented in this encounterPremier Health [facility] Center11-09-2023 Miscellaneous Notes* Telephone Encounter - Sanjay Abbasi PA-C - 12/28/2022 7:29 PM EST The following approved medication requests have been transmitted electronically. Requested Prescriptions Signed Prescriptions Disp Refills acetaminophen (ARTHRITIS PAIN RELIEF) 650 mg CR tablet 200 Each 5 Sig: Take 2 tablets by mouth every 8 hours as needed for pain. Not in same 8h period as [place] (hydrocodone Tylenol) Authorizing Provider: Sanjay ABBASI PA-C * Telephone Encounter - Yokasta Reese RN - 12/28/2022 3:23 PM EST Jonathan Pharmacist with [facility] called in and reports provider sent in and order for the Arthritis pain relief 650 mg DWAINE. He states they do not carry that, so if the provider could send in Acetaminophen equivalent otherwise remove the DWAINE and they can send what they have available. documented in this [facility]10-30-2023 Miscellaneous Notes* Telephone Encounter - Sanjay Rondon RN - 12/18/2022 4:06 PM EDT Patient asking pcp to send Rx's for routine meds to [facility] as they will mail them to her. Pended. Last ov: 11-07-22 Next ov: 02-08-23 documented in this encounterPremier [facility]10-10-2023 Miscellaneous Notes* Telephone Encounter - Dilia Jasmine - 11/28/2022 9:18 AM EDT Patient has been identified by name and date of : Yes Last office visit in this department: 11/07/2022 RX INSTRUCTIONS: Patient aware RX will be sent to pharmacy. No need to notify patient. Patient phones requesting refills as follows: Requested Prescriptions Pending Prescriptions Disp Refills dulaglutide (TRULICITY) 3 mg/0.5 mL pen injector 12 Each 1 Sig: Inject 3 mg subcutaneously one time a week. Please review and advise. Dilia Jasmine documented in this encounterPremier Health [facility] Center09-19-2023 History of Present illness Narrative* Sanjay Abbasi PA-C - 11/07/2022 1:26 PM EDT 62 year old female with c/o here for follow up on leg ulcerations which have now closed with use ofOsteo Biflex Triple cream. HISTORIES FAMILY HISTORY Problem Relation Age of Onset Hypertension Mother Heart Mother concha stroke Diabetes Mother Stroke Mother Massive- Arthritis Mother Osteoarthritis Hypertension Father COPD Father Hypertension Sister 2 Hypertension Brother 3 Heart Brother triple bypass at 48 Heart Maternal Aunt Heart Maternal Uncle Diabetes Brother 3 Brother's with diabetes Diabetes Sister Arthritis Sister Arthritis Brother Arthritis Brother Arthritis Brother PAST MEDICAL HISTORY Diagnosis Date Abnormal glandular Papanicolaou smear of cervix 05/30/05 ABNL GLANDULAR PAP SMEAR CERVIX Acute gastritis without mention of hemorrhage Anxiety state, unspecified Arrhythmia Chronic cholecystitis Chronic obstructive pulmonary disease (COPD) (HCC) Congestive heart failure (HCC) 10/03/2011 Diabetes (HCC) diabetes II 2010 Diaphragmatic hernia without mention of obstruction or gangrene Dysthymic disorder Depression (non-psychotic) Esophageal reflux Essential hypertension, benign Generalized OA Hyperprolactinemia (HCC) 10/13/2005 Localized osteoarthrosis not specified whether primary or secondary, lower leg Major depressive disorder, recurrent episode Mucous polyp of cervix 07/19/05 Other and unspecified anterior pituitary hyperfunction (HCC) 10/13/05 elevated prolactin level-was normal in 2011 PMH - PAST MEDICAL HISTORY OF sleep apnea PMH - PAST MEDICAL HISTORY OF sleep apnea SVT (supraventricular tachycardia) ([facility]) 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 Type 2 diabetes mellitus without complication, with long-term current use of insulin (HCC) 12/22/2013 PAST SURGICAL HISTORY Procedure Laterality Date BIOPSY CERVIX SINGLE/MULT/EXCISION OF LESION SPX 07/19/2005 endocervical polyp COLONOSCOPY FLX DX W/COLLJ SPEC WHEN PFRMD 01/09/2012 Colonoscopy repeat 10 years COLPOSCOPY CERVIX UPPER/ADJACENT VAGINA Colposcopy EGD TRANSORAL BIOPSY SINGLE/MULTIPLE 01/16/2007 ESOPHAGOGASTRODUODENOSCOPY TRANSORAL DIAGNOSTIC 01/09/2012 EGD HERNIA REPAIR HX 11/2015 ventral HYSTEROSCOPY DX 12/17/2014 D&C LAPS SURG CHOLECYSTECTOMY W/CHOLANGIOGRAPHY 05/15/2008 PARATHYROID Social History Tobacco Use Smoking status: Former Packs/day: 1.00 Years: 15.00 Additional pack years: 0.00 Total pack years: 15.00 Types: Cigarettes Quit date: 12/20/1994 Years since quittin.9 Smokeless tobacco: Never Vaping Use Vaping Use: Never used Substance Use Topics Alcohol use: No Drug use: No ACTIVE PROBLEM LIST Anxiety State Essential Hypertension, Benign ABNL GLANDULAR PAP SMEAR CERVIX Irregular Menstrual Cycle Esophageal Reflux Morbid Obesity (Hcc) Obstructive Sleep Apnea Svt (Supraventricular Tachycardia) (Hcc) Benign Hypertensive Heart Disease With Chf, Nyha Class 2 (Hcc) Spondylolisthesis Lumbar Facet Arthropathy Ddd (Degenerative Disc Disease), Lumbar Ddd (Degenerative Disc Disease), Cervical Type 2 Diabetes Mellitus With Peripheral Neuropathy (Hcc) Pmb (Postmenopausal Bleeding) Dysthymia Major depressive disorder, recurrent episode, moderate (HCC) Pain Disorder With Psychological Factors Diffuse Myofascial Pain Syndrome Bilateral Primary Osteoarthritis of Knee Liver Disease Umbilical Hernia Without Obstruction and Without Gangrene Hypercalcemia Primary Hyperparathyroidism (Hcc) Dvt (Deep Venous Thrombosis) (Hcc) Traumatic Complete Tear of Right Rotator Cuff Debility Abnormality of Gait Due to Impairment of Balance Chronic Respiratory Failure With Hypoxia ([facility]) Former Smoker Pressure Injury of Skin of Thigh Pressure Injury of Left Thigh, Stage 3 ([facility]) Current Outpatient Medications Medication Sig Dispense Refill Glucosamine-Chondroitin (OSTEO BI-FLEX) 250-200 mg tab Take by mouth. ZINC ORAL Take by mouth. collagen/biotin/ascorbic acid (COLLAGEN 1500 PLUS C ORAL) Take by mouth. HYDROcodone-acetaminophen (NORCO) 5-325 mg per tablet Take 1 tablet by mouth twice daily as needed for pain for up to 30 days. 60 tablet 0 Adhesive Bandage ([place] DRESS[employer]) 6 X 6 bndg Apply to affected area once daily. 30 Each 2 traZODone (DESYREL) 100 mg tablet Take 1 tablet by mouth daily at bedtime. 90 tablet 1 fluticasone (FLONASE) 50 mcg/actuation nasal spray Use 2 Sprays in each nostril once daily. Rinse mouth after use. 1 Each 2 tiZANidine (ZANAFLEX) 4 mg tablet Take 1 tablet by mouth every 8 hours as needed (muscle spasms). 30 tablet 0 spironolactone (ALDACTONE) 25 mg tablet Take 1 tablet by mouth once daily. 30 tablet 5 hydrOXYzine pamoate (VISTARIL) 25 mg capsule Take 1 capsule by mouth three times daily as needed. 30 capsule 0 Miscellaneous Medical Supply Collagen dressing 2x2 1 Each 3 ARIPiprazole (ABILIFY) 5 mg tablet Take 1 tablet by mouth once daily. 30 tablet 5 rOPINIRole (REQUIP) 0.25 mg tablet Take 1 tablet by mouth daily at bedtime. 30 tablet 2 DULoxetine (CYMBALTA) 60 mg capsule Take 1 capsule by mouth once daily. 90 capsule 1 gabapentin (NEURONTIN) 300 mg capsule Take 1 capsule by mouth twice daily. (Patient taking differently: Take 300 mg by mouth once daily.) 60 capsule 11 potassium chloride SR (MICRO-K) 8 mEq cpER Take 1 capsule by mouth daily with breakfast. 30 [id number] dulaglutide (TRULICITY) 3 mg/0.5 mL pen injector Inject 3 mg subcutaneously one time a week. 12 Each 1 albuterol HFA (VENTOLIN HFA) 90 mcg/actuation inhaler Inhale 2 Puffs as instructed every 4 hours asneeded for wheezing/shortness of breath. 1 Each 1 Cholecalciferol, Vitamin D3, 125 mcg (5,000 unit) cap Take 1 capsule by mouth once daily. 90 capsule 3 pravastatin (PRAVACHOL) 20 mg tablet Take 1 tablet by mouth daily at bedtime. 90 tablet 3 furosemide (LASIX) 80 mg tablet Take 1 tablet by mouth once daily. 90 tablet 3 insulin glargine (LANTUS SOLOSTAR U-100 INSULIN) 100 unit/mL (3 mL) Inject 25 Units subcutaneously daily at bedtime. 8 mL 11 blood sugar diagnostic (BLOOD GLUCOSE TEST) test strip Test blood sugars up to 4 times daily as directed. Dx: Type 2 DM - Controlled E11.9 Insulin: Yes. Trumetrix brand 360 Strip 3 Blood-Glucose Meter monitoring kit Glucose Meter of Choice - Kit - Dx: Type 2 DM - Controlled E11.9Use twice daily as directed 1 Each 0 Lancets lancets Test blood sugar(s) up to 4 times daily. Dx: Type 2 DM - Controlled E11.9 Insulin: Yes 100 Each 11 Insulin Maljamar, Disposable, (BD ULTRA-FINE MADI PEN NEEDLE) 32 gauge x 5/32 Use one needle for each dose. 2/day. 100 Each 11 ondansetron orally disintegrating (ZOFRAN ODT) 4 mg disintegrating tablet Take 1 tablet by mouth every 8 hours as needed for nausea/vomiting. 20 tablet 0 famotidine (PEPCID) 40 mg tablet Take 1 tablet by mouth once daily. 90 tablet 3 lancets (TRUEPLUS LANCETS) 30 gauge Test four times daily Dx: 250.02 450 Each 3 ascorbic acid (VITAMIN C ORAL) Take 1 tablet by mouth once daily. ibuprofen (MOTRIN) 800 mg tablet Take 1 tablet by mouth every 8 hours as needed (FOR PAIN. TAKE WITH FOOD). 30 tablet 0 dulaglutide (TRULICITY) 1.5 mg/0.5 mL pen injector Inject 1.5 mg subcutaneously one time a week. Inject once per week. Discard Pen After 2 mL 11 No current facility-administered medications for this visit. BP Controlled (<130/80) Never done Mammogram Screening due on 11/16/2016 Hepatitis B Vaccine(1 of 3 - Risk 3-dose series) Never done Pap Testing due on 11/16/2020 HPV Testing due on 11/16/2020 Colorectal Cancer Screening due on 01/08/2022 Influenza Vaccine(1) due on 10/20/2022 LDL Cholesterol due on 11/17/2022 EXAM: BP 124/84 Pulse 78 Resp 20 LMP 12/11/2008 SpO2 96% Pleasant morbidly obese adult woman in no acute distress. Alert and oriented all spheres. Normal affect and cognition. Speech normal. No deficits to learning or comprehension. Skin warm, dry, pink to lips and nailbeds. Normal turgor. Areas without ulceration, still slightly pink with rough feeling skin but much improved. Respirations regular and unlabored. Chest is normal shape. Lungs are clear to all bailey with good air exchange through out. HRRR without murmur or gallop. No lifts, heaves, or rubs. Extrem: no clubbing or cyanosis. Edema: tight legs, no pitting. Extremities are warm and pink with prompt capillary refill. ASSESSMENT/PLAN: 1. Pressure injury of left thigh, stage 3 (HCC) - ICD9: 707.09, 707.23, ICD10: L89.223 Resolved The following approved medication requests have been transmitted electronically. Requested Prescriptions Signed Prescriptions Disp Refills ARTHRITIS PAIN RELIEF 650 mg CR tablet 180 tablet 5 Sig: Take 2 tablets by mouth every 8 hours as needed. rOPINIRole (REQUIP) 0.25 mg tablet 30 tablet 2 Sig: Take 1 tablet by mouth daily at bedtime. hydrOXYzine pamoate (VISTARIL) 25 mg capsule 30 capsule 2 Sig: Take 1 capsule by mouth three times daily as needed. tiZANidine (ZANAFLEX) 4 mg tablet 30 tablet 2 Sig: Take 1 tablet by mouth every 8 hours as needed (muscle spasms). [id number] (OSTEO BI-FLEX TRIPLE STRENGTH) 750 mg-644 mg- 30 mg-1 mg tab 80 tablet 5 Sig: Take 1 tablet by mouth twice daily. CARLOS Sanz PA-C documented in this encounterPremier Health [facility] Center09-01-2023 Miscellaneous Notes* Telephone Encounter - Tg Sexton - 10/20/2022 4:06 PM EDT Faxed. Tg Sexton * Telephone Encounter - Sanjay Abbasi PA-C - 10/20/2022 12:23 PM EDT Daniel Abbasi PA-C * Telephone Encounter - Brittany Valencia LPN - 10/20/2022 11:19 AM EDT Please print order so can be faxed as requested. * Telephone Encounter - Marlee Pennington RN - 10/20/2022 10:30 AM EDT Patient calls and states that she usually get wound supplies from [facility]. Patient states that order for wound supplies was supposed to be faxed to [facility] after last appointment. Patient has notreceived any supplies yet. Patient asking if order can be faxed to [facility] again from [employer] 6 X 6. Patient usually changes dressing daily and prn. Please review and advise, Marlee Pennington, RN documented in this encounterPremier Health [facility] Center08-22-2023 Instructions* Patient Instructions* Sanjay Abbasi PA-C - 10/10/2022 1:33 PM EDT Trial island dressing daily changes. If wound irritated or pus, let me know. Up date needed or in 1 week. documented in this encounterPremier Health [facility] Center08-22-2023 History of Present illness Narrative* Sanjay Ababsi PA-C - 10/10/2022 1:00 PM EDT 62 year old female with c/o wound recheck Unable to tolerate duoderm: rolled up and tore the skin on her legs. Using Stratasorb 6x6in island dressing: seems to stick. Nurse continues weekly checks on wound. HISTORIES FAMILY HISTORY Problem Relation Age of Onset Hypertension Mother Heart Mother concha stroke Diabetes Mother Stroke Mother Massive- Arthritis Mother Osteoarthritis Hypertension Father COPD Father Hypertension Sister 2 Hypertension Brother 3 Heart Brother triple bypass at 48 Heart Maternal Aunt Heart Maternal Uncle Diabetes Brother 3 Brother's with diabetes Diabetes Sister Arthritis Sister Arthritis Brother Arthritis Brother Arthritis Brother PAST MEDICAL HISTORY Diagnosis Date Abnormal glandular Papanicolaou smear of cervix 05/30/05 ABNL GLANDULAR PAP SMEAR CERVIX Acute gastritis without mention of hemorrhage Anxiety state, unspecified Arrhythmia Chronic cholecystitis Chronic obstructive pulmonary disease (COPD) ([facility]) Congestive heart failure ([facility]) 10/03/2011 Diabetes ([facility]) diabetes II 2010 Diaphragmatic hernia without mention of obstruction or gangrene Dysthymic disorder Depression (non-psychotic) Esophageal reflux Essential hypertension, benign Generalized OA Hyperprolactinemia ([facility]) 10/13/2005 Localized osteoarthrosis not specified whether primary or secondary, lower leg Major depressive disorder, recurrent episode Mucous polyp of cervix 07/19/05 Other and unspecified anterior pituitary hyperfunction ([facility]) 10/13/05 elevated prolactin level-was normal in 2011 PMH - PAST MEDICAL HISTORY OF sleep apnea PMH - PAST MEDICAL HISTORY OF sleep apnea SVT (supraventricular tachycardia) ([facility]) 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 Type 2 diabetes mellitus without complication, with long-term current use of insulin ([facility]) 12/22/2013 PAST SURGICAL HISTORY Procedure Laterality Date BIOPSY CERVIX SINGLE/MULT/EXCISION OF LESION SPX 07/19/2005 endocervical polyp COLONOSCOPY FLX DX W/COLLJ SPEC WHEN PFRMD 01/09/2012 Colonoscopy repeat 10 years COLPOSCOPY CERVIX UPPER/ADJACENT VAGINA Colposcopy EGD TRANSORAL BIOPSY SINGLE/MULTIPLE 01/16/2007 ESOPHAGOGASTRODUODENOSCOPY TRANSORAL DIAGNOSTIC 01/09/2012 EGD HERNIA REPAIR HX 11/2015 ventral HYSTEROSCOPY DX 12/17/2014 D&C LAPS SURG CHOLECYSTECTOMY W/CHOLANGIOGRAPHY 05/15/2008 PARATHYROID Social History Tobacco Use Smoking status: Former Packs/day: 1.00 Years: 15.00 Additional pack years: 0.00 Total pack years: 15.00 Types: Cigarettes Quit date: 12/20/1994 Years since quittin.8 Smokeless tobacco: Never Vaping Use Vaping Use: Never used Substance Use Topics Alcohol use: No Drug use: No ACTIVE PROBLEM LIST Anxiety State Essential Hypertension, Benign ABNL GLANDULAR PAP SMEAR CERVIX Irregular Menstrual Cycle Esophageal Reflux Morbid Obesity (Hcc) Obstructive Sleep Apnea Svt (Supraventricular Tachycardia) ([facility]) Benign Hypertensive Heart Disease With Chf, Nyha Class 2 ([facility]) Spondylolisthesis Lumbar Facet Arthropathy Ddd (Degenerative Disc Disease), Lumbar Ddd (Degenerative Disc Disease), Cervical Type 2 Diabetes Mellitus With Peripheral Neuropathy ([facility] [facility]) Pmb (Postmenopausal Bleeding) Dysthymia Major depressive disorder, recurrent episode, moderate ([facility]) Pain Disorder With Psychological Factors Diffuse Myofascial Pain Syndrome Bilateral Primary Osteoarthritis of Knee Liver Disease Umbilical Hernia Without Obstruction and Without Gangrene Hypercalcemia Primary Hyperparathyroidism ([facility]) Dvt (Deep Venous Thrombosis) ([facility]) Traumatic Complete Tear of Right Rotator Cuff Debility Abnormality of Gait Due to Impairment of Balance Chronic Respiratory Failure With Hypoxia ([facility]) Former Smoker Pressure Injury of Skin of Thigh Current Outpatient Medications Medication Sig Dispense Refill traZODone (DESYREL) 100 mg tablet Take 1 tablet by mouth daily at bedtime. 90 tablet 1 fluticasone (FLONASE) 50 mcg/actuation nasal spray Use 2 Sprays in each nostril once daily. Rinse mouth after use. 1 Each 2 tiZANidine (ZANAFLEX) 4 mg tablet Take 1 tablet by mouth every 8 hours as needed (muscle spasms). 30 tablet 0 spironolactone (ALDACTONE) 25 mg tablet Take 1 tablet by mouth once daily. 30 tablet 5 hydrOXYzine pamoate (VISTARIL) 25 mg capsule Take 1 capsule by mouth three times daily as needed. 30 capsule 0 HYDROcodone-acetaminophen (NORCO) 5-325 mg per tablet Take 1 tablet by mouth twice daily as needed for pain for up to 30 days. 60 tablet 0 Miscellaneous Medical Supply Collagen dressing 2x2 1 Each 3 ARIPiprazole (ABILIFY) 5 mg tablet Take 1 tablet by mouth once daily. 30 tablet 5 rOPINIRole (REQUIP) 0.25 mg tablet Take 1 tablet by mouth daily at bedtime. 30 tablet 2 DULoxetine (CYMBALTA) 60 mg capsule Take 1 capsule by mouth once daily. 90 capsule 1 gabapentin (NEURONTIN) 300 mg capsule Take 1 capsule by mouth twice daily. (Patient taking differently: Take 300 mg by mouth once daily.) 60 capsule 11 potassium chloride SR (MICRO-K) 8 mEq cpER Take 1 capsule by mouth daily with breakfast. 30 [id number] dulaglutide (TRULICITY) 3 mg/0.5 mL pen injector Inject 3 mg subcutaneously one time a week. 12 Each 1 albuterol HFA (VENTOLIN HFA) 90 mcg/actuation inhaler Inhale 2 Puffs as instructed every 4 hours asneeded for wheezing/shortness of breath. 1 Each 1 Cholecalciferol, Vitamin D3, 125 mcg (5,000 unit) cap Take 1 capsule by mouth once daily. 90 capsule 3 pravastatin (PRAVACHOL) 20 mg tablet Take 1 tablet by mouth daily at bedtime. 90 tablet 3 furosemide (LASIX) 80 mg tablet Take 1 tablet by mouth once daily. 90 tablet 3 insulin glargine (LANTUS SOLOSTAR U-100 INSULIN) 100 unit/mL (3 mL) Inject 25 Units subcutaneously daily at bedtime. 8 mL 11 blood sugar diagnostic (BLOOD GLUCOSE TEST) test strip Test blood sugars up to 4 times daily as directed. Dx: Type 2 DM - Controlled E11.9 Insulin: Yes. Trumetrix brand 360 Strip 3 Blood-Glucose Meter monitoring kit Glucose Meter of Choice - Kit - Dx: Type 2 DM - Controlled E11.9Use twice daily as directed 1 Each 0 Lancets lancets Test blood sugar(s) up to 4 times daily. Dx: Type 2 DM - Controlled E11.9 Insulin: Yes 100 Each 11 Insulin Maljamar, Disposable, (BD ULTRA-FINE MADI PEN NEEDLE) 32 gauge x 5/32 Use one needle for each dose. 2/day. 100 Each 11 ondansetron orally disintegrating (ZOFRAN ODT) 4 mg disintegrating tablet Take 1 tablet by mouth every 8 hours as needed for nausea/vomiting. 20 tablet 0 famotidine (PEPCID) 40 mg tablet Take 1 tablet by mouth once daily. 90 tablet 3 dulaglutide (TRULICITY) 1.5 mg/0.5 mL pen injector Inject 1.5 mg subcutaneously one time a week. Inject once per week. Discard Pen After 2 mL 11 lancets (TRUEPLUS LANCETS) 30 gauge Test four times daily Dx: 250.02 450 Each 3 ascorbic acid (VITAMIN C ORAL) Take 1 tablet by mouth once daily. ibuprofen (MOTRIN) 800 mg tablet Take 1 tablet by mouth every 8 hours as needed (FOR PAIN. TAKE WITH FOOD). 30 tablet 0 No current facility-administered medications for this visit. BP CONTROLLED (<130/80) Never done MAMMOGRAM due on 11/16/2016 PAP TESTING due on 11/16/2020 HPV TESTING due on 11/16/2020 COLORECTAL CANCER SCREENING due on 01/08/2022 EXAM: BP 138/80 Pulse 76 Temp 36.4 C (97.6 F) Resp 16 LMP 12/11/2008 SpO2 96% Pleasant obese adult woman in no acute distress. Alert and oriented all spheres. Normal affect and cognition. Speech normal. No deficits to learning or comprehension. Skin warm, dry, pink to lips and nailbeds. Normal turgor. Respirations regular and unlabored. Extrem: no clubbing or cyanosis. Edema: none. Extremities are warm and pink with prompt capillary refill. Right posterior thigh wound unchanged from previous depth, measurements, color, dryness. No surrounding erythema. ASSESSMENT/PLAN: 1. Pressure injury of skin of thigh, unspecified injury stage, unspecified laterality - ICD9: 707.09, 707.20, ICD10: L89.209 Follow in 4 weeks or sooner as needed Consider surgical consult for debridement/ closure- patient hesitant about this option. - [place] [employer] 6 X 6 M Hubert Abbasi PA-C documented in this encounterPrem[facility] History of Present illness Narrative* Sanjay Abbasi PA-C - 10/06/2022 11:40 AM EDT 62 year old female with c/o wound, open areas on posterior left thigh being treated by home health nurse weekly, doing collagen dressings. Areas are dry, healing very slowly, non-tender. Here for review. Hemoglobin A1C (%) Date Value 05/08/2022 7.1 02/15/2022 7.7 12/24/2020 7.5 12/13/2020 7.2 ) CMP Latest Ref Rng & Units 03/10/2022 05/08/2022 07/05/2022 SODIUM 136 - 144 mmol/L 138 141 140 SODIUM, JOSE ALFREDO 132 - 148 mmol/L - - - SODIUM, JOSE ALFREDO 132 - 148 mmol/L - - - POTASSIUM 3.7 - 5.1 mmol/L 4.5 4.5 4.3 POTASSIUM, JOSE ALFREDO 3.5 - 5.0 mmol/L - - - CHLORIDE 97 - 105 mmol/L 100 103 102 CHLORIDE, JOSE ALFREDO 98 - 110 mmol/L - - - CO2 22 - 30 mmol/L 29 26 27 CO2, JOSE ALFREDO 23.0 - 32.0 mmol/L - - - GLUCOSE 74 - 99 mg/dL 188(H) 177(H) 155(H) GLUCOSE (U), JOSE ALFREDO NEGAT mg/dL - - - GLUCOSE, JOSE ALFREDO 65 - 100 mg/dL - - - BUN 7 - 21 mg/dL 21 20 19 BUN, JOSE ALFREDO 10 - 25 mg/dL - - - CREATININE 0.58 - 0.96 mg/dL 0.58 0.54(L) 0.55(L) CREATININE, JOSE ALFREDO 0.7 - 1.4 mg/dL - - - EGFR >=60 mL/min/1.73m 102 104 104 EGFR-ALL OTHER RACES . - - - EGFR- - - - - PROTEIN, TOTAL 6.3 - 8.0 g/dL - 6.3 - TOTAL PROTEIN, JOSE ALFREDO 6.0 - 8.4 g/dL - - - ALBUMIN 3.9 - 4.9 g/dL - 4.3 - ALBUMIN, JOSE ALFREDO 3.5 - 5.0 g/dL - - - ALBUMIN, URINE RANDOM mg/L - - - CALCIUM, JOSE ALFREDO 8.5 - 10.5 mg/dL - - - CALCIUM, 24 HR URINE 100 - 300 mg/24 hr - - - CALCIUM, TOTAL 8.5 - 10.2 mg/dL 9.3 9.6 9.7 BILIRUBIN, TOTAL 0.2 - 1.3 mg/dL - 0.4 - AST 13 - 35 U/L - 15 - AST, JOSE ALFREDO 7 - 40 U/L - - - ALT 7 - 38 U/L - 14 - ALT, JOSE ALFREDO 0 - 45 U/L - - - ALKALINE PHOSPHATASE, TOTAL 33 - 130 U/L - - - ALKALINE PHOSPHATASE 34 - 123 U/L - 119 - ALKALINE PHOSPHATASE (ALKISO) 34 - 123 U/L - - - HISTORIES FAMILY HISTORY Problem Relation Age of Onset Hypertension Mother Heart Mother concha stroke Diabetes Mother Stroke Mother Massive- Arthritis Mother Osteoarthritis Hypertension Father COPD Father Hypertension Sister 2 Hypertension Brother 3 Heart Brother triple bypass at 48 Heart Maternal Aunt Heart Maternal Uncle Diabetes Brother 3 Brother's with diabetes Diabetes Sister Arthritis Sister Arthritis Brother Arthritis Brother Arthritis Brother PAST MEDICAL HISTORY Diagnosis Date Abnormal glandular Papanicolaou smear of cervix 05/30/05 ABNL GLANDULAR PAP SMEAR CERVIX Acute gastritis without mention of hemorrhage Anxiety state, unspecified Arrhythmia Chronic cholecystitis Chronic obstructive pulmonary disease (COPD) ([facility]) Congestive heart failure ([facility]) 10/03/2011 Diabetes ([facility]) diabetes II 2010 Diaphragmatic hernia without mention of obstruction or gangrene Dysthymic disorder Depression (non-psychotic) Esophageal reflux Essential hypertension, benign Generalized OA Hyperprolactinemia ([facility]) 10/13/2005 Localized osteoarthrosis not specified whether primary or secondary, lower leg Major depressive disorder, recurrent episode Mucous polyp of cervix 07/19/05 Other and unspecified anterior pituitary hyperfunction ([facility]) 10/13/05 elevated prolactin level-was normal in 2011 PMH - PAST MEDICAL HISTORY OF sleep apnea PMH - PAST MEDICAL HISTORY OF sleep apnea SVT (supraventricular tachycardia) ([facility]) 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 Type 2 diabetes mellitus without complication, with long-term current use of insulin ([facility]) 12/22/2013 PAST SURGICAL HISTORY Procedure Laterality Date BIOPSY CERVIX SINGLE/MULT/EXCISION OF LESION SPX 07/19/2005 endocervical polyp COLONOSCOPY FLX DX W/COLLJ SPEC WHEN PFRMD 01/09/2012 Colonoscopy repeat 10 years COLPOSCOPY CERVIX UPPER/ADJACENT VAGINA Colposcopy EGD TRANSORAL BIOPSY SINGLE/MULTIPLE 01/16/2007 ESOPHAGOGASTRODUODENOSCOPY TRANSORAL DIAGNOSTIC 01/09/2012 EGD HERNIA REPAIR HX 11/2015 ventral HYSTEROSCOPY DX 12/17/2014 D&C LAPS SURG CHOLECYSTECTOMY W/CHOLANGIOGRAPHY 05/15/2008 PARATHYROID Social History Tobacco Use Smoking status: Former Packs/day: 1.00 Years: 15.00 Additional pack years: 0.00 Total pack years: 15.00 Types: Cigarettes Quit date: 12/20/1994 Years since quittin.8 Smokeless tobacco: Never Vaping Use Vaping Use: Never used Substance Use Topics Alcohol use: No Drug use: No ACTIVE PROBLEM LIST Anxiety State Essential Hypertension, Benign ABNL GLANDULAR PAP SMEAR CERVIX Irregular Menstrual Cycle Esophageal Reflux Morbid Obesity ([facility]) Obstructive Sleep Apnea Svt (Supraventricular Tachycardia) ([facility]) Benign Hypertensive Heart Disease With Chf, Nyha Class 2 ([facility]) Spondylolisthesis Lumbar Facet Arthropathy Ddd (Degenerative Disc Disease), Lumbar Ddd (Degenerative Disc Disease), Cervical Type 2 Diabetes Mellitus With Peripheral Neuropathy ([facility]) Pmb (Postmenopausal Bleeding) Dysthymia Major depressive disorder, recurrent episode, moderate ([facility]CC) Pain Disorder With Psychological Factors Diffuse Myofascial Pain Syndrome Bilateral Primary Osteoarthritis of Knee Liver Disease Umbilical Hernia Without Obstruction and Without Gangrene Hypercalcemia Primary Hyperparathyroidism ([facility]) Dvt (Deep Venous Thrombosis) ([facility]) Traumatic Complete Tear of Right Rotator Cuff Debility Abnormality of Gait Due to Impairment of Balance Chronic Respiratory Failure With Hypoxia ([facility]) Former Smoker Pressure Injury of Skin of Thigh Current Outpatient Medications Medication Sig Dispense Refill tiZANidine (ZANAFLEX) 4 mg tablet Take 1 tablet by mouth every 8 hours as needed (muscle spasms). 30 tablet 0 spironolactone (ALDACTONE) 25 mg tablet Take 1 tablet by mouth once daily. 30 tablet 5 hydrOXYzine pamoate (VISTARIL) 25 mg capsule Take 1 capsule by mouth three times daily as needed. 30 capsule 0 HYDROcodone-acetaminophen (NORCO) 5-325 mg per tablet Take 1 tablet by mouth twice daily as needed for pain for up to 30 days. 60 tablet 0 Miscellaneous Medical Supply Collagen dressing 2x2 1 Each 3 ARIPiprazole (ABILIFY) 5 mg tablet Take 1 tablet by mouth once daily. 30 tablet 5 ARIPiprazole (ABILIFY) 2 mg tablet Take 1 tablet by mouth once daily. 30 tablet 5 rOPINIRole (REQUIP) 0.25 mg tablet Take 1 tablet by mouth daily at bedtime. 30 tablet 2 DULoxetine (CYMBALTA) 60 mg capsule Take 1 capsule by mouth once daily. 90 capsule 1 gabapentin (NEURONTIN) 300 mg capsule Take 1 capsule by mouth twice daily. (Patient taking differently: Take 300 mg by mouth once daily.) 60 capsule 11 tiZANidine (ZANAFLEX) 4 mg tablet Take 1 tablet by mouth every 8 hours as needed (muscle spasms). 30 tablet 0 triamcinolone (KENALOG IN ORABASE) 0.1 % paste 1/4 paste 2-3 times a day to canker until pain resolves 7.5 g 1 potassium chloride SR (MICRO-K) 8 mEq cpER Take 1 capsule by mouth daily with breakfast. 30 [id number] dulaglutide (TRULICITY) 3 mg/0.5 mL pen injector Inject 3 mg subcutaneously one time a week. 12 Each 1 albuterol HFA (VENTOLIN HFA) 90 mcg/actuation inhaler Inhale 2 Puffs as instructed every 4 hours asneeded for wheezing/shortness of breath. 1 Each 1 Cholecalciferol, Vitamin D3, 125 mcg (5,000 unit) cap Take 1 capsule by mouth once daily. 90 capsule 3 pravastatin (PRAVACHOL) 20 mg tablet Take 1 tablet by mouth daily at bedtime. 90 tablet 3 furosemide (LASIX) 80 mg tablet Take 1 tablet by mouth once daily. 90 tablet 3 traZODone (DESYREL) 100 mg tablet Take 1 tablet by mouth daily at bedtime. 90 tablet 1 insulin glargine (LANTUS SOLOSTAR U-100 INSULIN) 100 unit/mL (3 mL) Inject 25 Units subcutaneously daily at bedtime. 8 mL 11 blood sugar diagnostic (BLOOD GLUCOSE TEST) test strip Test blood sugars up to 4 times daily as directed. Dx: Type 2 DM - Controlled E11.9 Insulin: Yes. Trumetrix brand 360 Strip 3 Blood-Glucose Meter monitoring kit Glucose Meter of Choice - Kit - Dx: Type 2 DM - Controlled E11.9Use twice daily as directed 1 Each 0 Lancets lancets Test blood sugar(s) up to 4 times daily. Dx: Type 2 DM - Controlled E11.9 Insulin: Yes 100 Each 11 Insulin Maljamar, Disposable, (BD ULTRA-FINE MADI PEN NEEDLE) 32 gauge x 532 Use one needle for each dose. 2/day. 100 Each 11 ondansetron orally disintegrating (ZOFRAN ODT) 4 mg disintegrating tablet Take 1 tablet by mouth every 8 hours as needed for nausea/vomiting. 20 tablet 0 famotidine (PEPCID) 40 mg tablet Take 1 tablet by mouth once daily. 90 tablet 3 dulaglutide (TRULICITY) 1.5 mg/0.5 mL pen injector Inject 1.5 mg subcutaneously one time a week. Inject once per week. Discard Pen After 2 mL 11 lancets (TRUEPLUS LANCETS) 30 gauge Test four times daily Dx: 250.02 450 Each 3 ascorbic acid (VITAMIN C ORAL) Take 1 tablet by mouth once daily. ibuprofen (MOTRIN) 800 mg tablet Take 1 tablet by mouth every 8 hours as needed (FOR PAIN. TAKE WITH FOOD). 30 tablet 0 No current facility-administered medications for this visit. BP CONTROLLED (<130/80) Never done MAMMOGRAM due on 11/16/2016 PAP TESTING due on 11/16/2020 HPV TESTING due on 11/16/2020 COLORECTAL CANCER SCREENING due on 01/08/2022 EXAM: BP 126/80 Pulse 83 Temp 36.1 C (97 F) LMP 12/11/2008 SpO2 97% Pleasant morbidly obese adult woman in no acute distress. Alert and oriented all spheres. Normal affect and cognition. Speech normal. No deficits to learning or comprehension. Skin warm, dry, pink to lips and nailbeds. Normal turgor.. Left posterior thigh with two round dry,beefy red ulcers [id number] and [id number] without surrounding erythema or streaks. Non-tender. Respirations regular and unlabored. Chest is normal shape. Lungs are clear to all bailey with good air exchange through out. HRRR without murmur or gallop. No lifts, heaves, or rubs. Extrem: no clubbing or cyanosis. Edema: none. Extremities are warm and pink with prompt capillary refill. ASSESSMENT/PLAN: 1. Skin ulcer, limited to breakdown of skin (HCC) - ICD9: 707.9, ICD10: L98.491 Wounds appear clean, no evidence of infection. Duoderm dressing applied. Recheck in 5 days. Sanjay Abbasi PA-C documented in this encounterPrem[facility]-17-[facility]23 Miscellaneous Notes* Telephone Encounter - Singh Mendoza LPN - 10/05/2022 10:38 AM EDT Last refill tizanidine 09/04/22 Qty: 30 with 0 refills Last refill spironolactone 04/24/22 Qty: 30 with 5 refills [facility] 08/24/22 NOV 10/06/22 Singh Mendoza LPN * Telephone Encounter - Rena Mullins - 10/05/2022 8:12 AM EDT Patient has been identified by name and date of : Yes Requested Prescriptions Pending Prescriptions Disp Refills tiZANidine (ZANAFLEX) 4 mg tablet 30 tablet 0 Sig: Take 1 tablet by mouth every 8 hours as needed (muscle spasms). spironolactone (ALDACTONE) 25 mg tablet 30 tablet 5 Sig: Take 1 tablet by mouth once daily. RX INSTRUCTIONS: Patient aware RX will be sent to pharmacy. No need to notify patient. 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 It often occurs in patient who have had a history of trauma, although not exclusively. Check out the website www.neurosymptoms.org subsection on Functional Tremor, which includes some exercises that can be done to try to suppress it. There is no medication for the condition. The main treatment is exercises to suppress tremor and psychotherapy, specifically cognitive behavioral therapy (CBT). I wouldn't suggest adding medication for tremor today. documented in this encounterPrem[facility]08-14-2023 History of Present illness Narrative* Jose Luis Lancaster MD - 10/02/2022 10:39 AM EDT FOLLOW UP NOTE Subjective Wilton Khan is a 62 year old female who presents for follow up. CC: Tremor Summary of prior care: Left-handed female with a history of depression and diabetic neuropathy amongst many other conditions who presents for evaluation of tremor. Her examination demonstrates possible mild parkinsonism, mild tremor, normal handwriting, normal spirals, decreased sensation in feet. Symptoms could be from Abilify, which she is for adjunctive treatment of depression. Would suggest decreasing this to see if tremor / other symptoms improve. Much of the tremor is felt more internally, which can sometimes be seen with psychiatric causes such as anxiety. Thyroid function is normal. Wouldn't suggest starting a medication for tremor presently. HPI Current Issues 1. Tremor Current Outpatient Medications Medication Sig Dispense Refill hydrOXYzine pamoate (VISTARIL) 25 mg capsule Take 1 capsule by mouth three times daily as needed. 30 capsule 0 HYDROcodone-acetaminophen (NORCO) 5-325 mg per tablet Take 1 tablet by mouth twice daily as needed for pain for up to 30 days. 60 tablet 0 Miscellaneous Medical Supply Collagen dressing 2x2 1 Each 3 ARIPiprazole (ABILIFY) 5 mg tablet Take 1 tablet by mouth once daily. 30 tablet 5 tiZANidine (ZANAFLEX) 4 mg tablet Take 1 tablet by mouth every 8 hours as needed (muscle spasms). 30 tablet 0 rOPINIRole (REQUIP) 0.25 mg tablet Take 1 tablet by mouth daily at bedtime. 30 tablet 2 DULoxetine (CYMBALTA) 60 mg capsule Take 1 capsule by mouth once daily. 90 capsule 1 gabapentin (NEURONTIN) 300 mg capsule Take 1 capsule by mouth twice daily. (Patient taking differently: Take 300 mg by mouth once daily.) 60 capsule 11 potassium chloride SR (MICRO-K) 8 mEq cpER Take 1 capsule by mouth daily with breakfast. 30 [id number] dulaglutide (TRULICITY) 3 mg/0.5 mL pen injector Inject 3 mg subcutaneously one time a week. 12 Each 1 albuterol HFA (VENTOLIN HFA) 90 mcg/actuation inhaler Inhale 2 Puffs as instructed every 4 hours asneeded for wheezing/shortness of breath. 1 Each 1 Cholecalciferol, Vitamin D3, 125 mcg (5,000 unit) cap Take 1 capsule by mouth once daily. 90 capsule 3 pravastatin (PRAVACHOL) 20 mg tablet Take 1 tablet by mouth daily at bedtime. 90 tablet 3 spironolactone (ALDACTONE) 25 mg tablet Take 1 tablet by mouth once daily. 30 tablet 5 furosemide (LASIX) 80 mg tablet Take 1 tablet by mouth once daily. 90 tablet 3 traZODone (DESYREL) 100 mg tablet Take 1 tablet by mouth daily at bedtime. 90 tablet 1 insulin glargine (LANTUS SOLOSTAR U-100 INSULIN) 100 unit/mL (3 mL) Inject 25 Units subcutaneously daily at bedtime. 8 mL 11 blood sugar diagnostic (BLOOD GLUCOSE TEST) test strip Test blood sugars up to 4 times daily as directed. Dx: Type 2 DM - Controlled E11.9 Insulin: Yes. Trumetrix brand 360 Strip 3 Blood-Glucose Meter monitoring kit Glucose Meter of Choice - Kit - Dx: Type 2 DM - Controlled E11.9Use twice daily as directed 1 Each 0 Lancets lancets Test blood sugar(s) up to 4 times daily. Dx: Type 2 DM - Controlled E11.9 Insulin: Yes 100 Each 11 Insulin Maljamar, Disposable, (BD ULTRA-FINE MADI PEN NEEDLE) 32 gauge x /32 Use one needle for each dose. 2/day. 100 Each 11 ondansetron orally disintegrating (ZOFRAN ODT) 4 mg disintegrating tablet Take 1 tablet by mouth every 8 hours as needed for nausea/vomiting. 20 tablet 0 famotidine (PEPCID) 40 mg tablet Take 1 tablet by mouth once daily. 90 tablet 3 dulaglutide (TRULICITY) 1.5 mg/0.5 mL pen injector Inject 1.5 mg subcutaneously one time a week. Inject once per week. Discard Pen After 2 mL 11 lancets (TRUEPLUS LANCETS) 30 gauge Test four times daily Dx: 250.02 450 Each 3 ascorbic acid (VITAMIN C ORAL) Take 1 tablet by mouth once daily. ibuprofen (MOTRIN) 800 mg tablet Take 1 tablet by mouth every 8 hours as needed (FOR PAIN. TAKE WITH FOOD). 30 tablet 0 ARIPiprazole (ABILIFY) 2 mg tablet Take 1 tablet by mouth once daily. 30 tablet 5 tiZANidine (ZANAFLEX) 4 mg tablet Take 1 tablet by mouth every 8 hours as needed (muscle spasms). 30 tablet 0 triamcinolone (KENALOG IN ORABASE) 0.1 % paste 1/4 paste 2-3 times a day to canker until pain resolves 7.5 g 1 No current facility-administered medications for this visit. REVIEW OF SYSTEMS Her ROS was positive for that mentioned in the HPI. Otherwise a 10-point ROS was completed and was negative. Objective OBJECTIVE 10/02/22 1035 BP: 134/66 Pulse: 78 SpO2: 96% Height: 149.9 cm (4' 11) General: General Appearance: Well appearing, alert, in no acute distress, well-hydrated, well nourished. Head: Normocephalic Neck: Supple Heart: RRR Neurologic Exam: Mental Status: She is alert. She is fully oriented. Attention is intact. Recent and remote memory is intact. Language shows normal comprehension and fluency. Praxis is normal. Affect is appropriate. Cranial Nerves: Pupils are equal and reactive to light. Extraocular movements show full and smooth pursuits. No nystagmus. Visual bailey are full to confrontation. Facial sensation is intact. Facial activation is symmetric. Hearing is intact to conversation. There is subtle hypomimia. There is subtle hypophonia. There is no dysarthria. Tongue is midline. Palate elevates symmetrically. Shoulder shrug is normal. Motor: Muscle bulk is normal. Muscle power is full. Handwriting normal. Spirals normal initial subtle tremor on right resolves, no tremor on left. No rest tremor. Bilateral irregular postural tremor resolves with distraction. YY head tremor not present when talking begins during physical exam. Resolves with rhythmic tapping. No rigidity. No bradykinesia today. Coordination: Finger to nose is smooth without ataxia. Gait/station: In motorized scooter DATA REVIEW Actual films/image/tracing reviewed and summarized as follows: n/a Old records reviewed and summarized as follows: TSH 1.33, A1c 7.7 -> 7.1 Assessment/Plan ASSESSMENT & PLAN: Wilton Khan is a 62 year old left-handed female with a history of depression and diabetic neuropathy amongst many other conditions who presents for follow up of tremor. Her examination demonstrates distractible tremor today. 1. Tremor - Appearance today looks like functional tremor with resolution with rhythmic tapping, onset of head tremor only during physical exam - Discussed FT at length. Gave website where there is info on practicing tapping to suppress tremor - Could look into CBT - Less parkinsonian today compared to prior, likely from less Abilify - Would not suggest adding medication today Follow-up: 6 months Risks & Side Effects of Newly Prescribed Medication, Discussed with Patient: n/a Jose Luis Lancaster MD [facility] documented in this encounterPrem[facility]08-10-2023 Miscellaneous Notes* Telephone Encounter - Tania Nieves - 09/28/2022 3:27 PM EDT Patient has been identified by name and date of : Yes Last office visit in this department: 08/24/2022 RX INSTRUCTIONS: Patient aware RX will be sent to pharmacy. No need to notify patient. Patient phones requesting refills as follows: Requested Prescriptions Pending Prescriptions Disp Refills hydrOXYzine pamoate (VISTARIL) 25 mg capsule 30 capsule 0 Sig: Take 1 capsule by mouth three times daily as needed. Please review and advise. Tania Nieves documented in this encounterPrem[facility]08-04-2023 Miscellaneous Notes* Telephone Encounter - Panchito Mora - 09/22/2022 4:42 PM EDT Patient has been identified by name and date of : Yes Last office visit in this department: 08/24/2022 RX INSTRUCTIONS: Patient aware RX will be sent to pharmacy. No need to notify patient. Patient phones requesting refills as follows: Requested Prescriptions Pending Prescriptions Disp Refills HYDROcodone-acetaminophen (NORCO) 5-325 mg per tablet 60 tablet 0 Sig: Take 1 tablet by mouth twice daily as needed for pain for up to 30 days. Please review and advise. Panchito Mora documented in this encounterPremier Health [facility] Center08-04-2023 Miscellaneous Notes* Telephone Encounter - La Babb RN - 09/22/2022 8:10 AM EDT Pt was seen in [facility] 09/21/22 * Telephone Encounter - Aspen Villanueva LPN - 09/21/2022 9:04 AM EDT Pt's sister Adela called & states pt tested + for covid at home. She wants cough & breathing evaluated & will come in to [facility]. Aspen Villanueva LPN * Telephone Encounter - La Babb RN - 09/21/2022 8:59 AM EDT Called pt back and she states she has found a ride and is just waiting on a call back for the confirmation. She will plan on coming to [facility]. * Telephone Encounter - La Babb RN - 09/21/2022 8:49 AM EDT Pt calling in with c/o cold/flu/COVID symptoms. She asked if Dr. Herbert or Micah Abbasi would call something in. She has an appt already scheduled tomorrow with Micah Abbasi as a follow up. Informed pt that the providers would be unable to call anything in for her without seeing her. Started getting sick on Sunday and is progressively getting worse. States coughing and breathing were so bad overnightthat she almost called the squad. Pt sounds very sick and with prolonged talking sounds SOB. Pt c/ostuffy nose, sore throat, frequent non productive cough, chills, and SOB off and on. Pt states noted fever of 100.0 last night. Pt has many health issues so encouraged to come in to [facility]. Pt states sheis in a motorized chair and her insurance will only bring her into [facility] but won't pick her back up. Pt encouraged to contact her Parking Meter Mechanic and let them know she needs to be seen. Pt c/o SOB and states it gets worse with any exertion or coughing. States she has a pulse ox but it isn't working. Pt instructed to see if she can find a ride into [facility] or to call 911 if symptoms worsen. documented in this encounterPremier Health At[facility] Center08-03-2023 Miscellaneous Notes* Telephone Encounter - La Babb RN - 09/21/2022 10:54 AM EDT * Telephone Encounter - La Babb RN - 09/21/2022 8:26 AM EDT Error-see other phone note of today. Reason for Disposition [1] Adult with possible COVID-19 symptoms AND [2] triager concerned about severity of symptoms or other causes Protocols used: Coronavirus (COVID-19) Diagnosed or [id number] documented in this encounterPremier Health Atrium Medical Center08-03-2023 Miscellaneous Notes* Telephone Encounter - Brittany Valencia LPN - 09/21/2022 8:25 AM EDT Faxed to [facility]. * Telephone Encounter - Nehemiah Herbert MD - 09/20/2022 3:56 PM EDT written * Telephone Encounter - Yokasta Reese RN - 09/20/2022 3:48 PM EDT Pt called in and asked if her Furniture Servicer with [facility] had called in and asked the provider or order a new lift chair for her. I looked through previous orders and could not find it. Pt is askingif provider would put in an order for Pt to get a new lift chair early. She thinks that because thelegs of it are so worn out that it is contributing to the wounds on the back of her legs. She wouldlike the order send the [facility] for the DME. Please call and advise Pt when and if provider will send in order. documented in this encounterPremier Health Atrium Medical Center07-31-2023 Miscellaneous Notes* Telephone Encounter - Louie Wade Ma - 09/18/2022 3:39 PM EDT Order was faxed to new number as requested * Telephone Encounter - Yoko Lopez, RN - 09/18/2022 2:36 PM EDT Pt calls to report that orders for collagen dressing and solution was not received by [facility]. Pt is requesting orders be re-faxed to [facility]. She has a different fax number. . Yoko Lopez RN documented in this encounterPremier Health Atrium Medical Center07-20-2023 Miscellaneous Notes* Telephone Encounter - Tg Sexton - 09/07/2022 4:36 PM EDT Faxed to [facility]. Tg Sexton * Telephone Encounter - Louie Wade Ma - 09/07/2022 4:21 PM EDT Please reorder to print * Telephone Encounter - Brittany Valencia LPN - 09/07/2022 3:28 PM EDT Will need an order to send them. * Telephone Encounter - Nehemiah Herbert MD - 09/06/2022 2:37 PM EDT ok * Telephone Encounter - Katherine Ramirez LPN - 09/06/2022 2:13 PM EDT Smitha with [facility] called and they can not provide the collagen dressing DME request they received. They are not able to bill for this. Smitha suggested to try [facility]. They specialize in wound care items and maybe able to bill. Katherine Ramirez LPN documented in this encounterPremier Health Atrium Medical Center07-18-2023 Miscellaneous Notes* Telephone Encounter - Louie Wade Ma - 09/05/2022 5:48 PM EDT Pt notified * Telephone Encounter - Sanjay Abbasi PA-C - 09/05/2022 5:39 PM EDT The following approved medication requests have been transmitted electronically. Requested Prescriptions Signed Prescriptions Disp Refills ARIPiprazole (ABILIFY) 5 mg tablet 30 tablet 5 Sig: Take 1 tablet by mouth once daily. Authorizing Provider: Sanjay ABBASI PA-C * Telephone Encounter - Yokasta Reese RN - 09/05/2022 12:04 PM EDT Pt called in and reports she had been taken off of her Abilify for her anxiety and panic attacks she was on 25 mg. Stopped by neurologist due to shaking all over, trouble especially with legs. Pt wasrestarted on Abilify 2 mg on 08/28/22 by Micah RICHARDSON. She states she takes the Hydroxyzine and ithelps, but it wipes her out. She is asking if the provider would be willing to increase her Abilify, because she feels it helped to control her anxiety and panic attacks better. Please call Pt and advise. documented in this encounterPremier Health Atrium Medical Center07-17-2023 Miscellaneous Notes* Telephone Encounter - Keo Napier LPN - 09/04/2022 6:21 PM EDT [facility] 08/24/22 NOV 09/22/22 * Telephone Encounter - Christal Chin - 09/04/2022 2:51 PM EDT Patient has been identified by name and date of : Yes Last office visit in this department: Visit date not found RX INSTRUCTIONS: Patient aware RX will be sent to pharmacy. No need to notify patient. Patient phones requesting refills as follows: Requested Prescriptions Pending Prescriptions Disp Refills tiZANidine (ZANAFLEX) 4 mg tablet 30 tablet 0 Sig: Take 1 tablet by mouth every 8 hours as needed (muscle spasms). Please review and advise. Christal Turcios documented in this encounterPremier Health Atrium Medical Center07-10-2023 Miscellaneous Notes* Telephone Encounter - Brittany Valencia LPN - 08/28/2022 3:57 PM EDT Patient calling she started her Abilify today but still feeling anxious. Feeling like could have pain attack. Discussed with Dr Herbert. documented in this encounterPremier Health Atrium Medical Center07-10-2023 Miscellaneous Notes* Telephone Encounter - Brittany Valencia LPN - 08/28/2022 2:46 PM EDT Spoke with patient and she is aware that medication is sent to pharmacy. * Telephone Encounter - Sanjay Abbasi PA-C - 08/28/2022 2:27 PM EDT The following approved medication requests have been transmitted electronically. Requested Prescriptions Signed Prescriptions Disp Refills ARIPiprazole (ABILIFY) 2 mg tablet 30 tablet 5 Sig: Take 1 tablet by mouth once daily. Authorizing Provider: Sanjay ABBASI PA-C * Telephone Encounter - Dilia Jasmine - 08/28/2022 2:13 PM EDT Pt called again to check on the status of the Abilify. She was really upset and hoping to hear backtoday. * Telephone Encounter - Katherine Ramirez LPN - 08/28/2022 8:02 AM EDT Pt calling to see if you are willing to put her back on Abilify. Pt was seen on 08-24-22. Pt reports she needs this for her nerves. She is aware you are hesitant because of tremors/shaky but she is still shaky off it also. Please advise pt. Pharmacy updated. Katherine Ramirez [facility] documented in this encounterPremier Health Atrium Medical Center07-10-2023 Miscellaneous Notes* Telephone Encounter - Brittany Valencia LPN - 08/28/2022 1:24 PM EDT Orders faxed as requested. * Telephone Encounter - Nehemiah Herbert MD - 08/28/2022 12:20 PM EDT placed * Telephone Encounter - Micaela Reis LPN - 08/28/2022 10:21 AM EDT Yenifer from [facility] calling asking for wound care items to be faxed to [facility]. Patient has two open areas right buttock, upper area 0.7 cm x 0.7 cm x 0.1 cm depth, and lower area 0.7 cm x 0.8 cm x 0.1 cm depth. Home Health is cleaning with normal saline and applying Collagen dressing and cover with Island dressing, gets changed daily. [facility] phone is [phone] and fax number is [phone]. Asking for Collagen dressing 2 x 2, 1 to 2 boxes, Island dressing is 4 x 4, 1 to 2 boxes and Normal Saline 5 ml ampule box of 100 amps. Pending order, needs diagnosis. Please advise documented in this encounterPremier Health Atrium Medical Center07-06-2023 Instructions* Patient Instructions* Sanjay Abbasi PA-C - 08/24/2022 1:30 PM EDT Access elicit Online for additional drug information, tools, and databases. Copyright 3982-6003 [employer]. All rights reserved. Contributor Disclosures (For additional information see Ropinirole: Drug information) You must carefully read the Consumer Information Use and Disclaimer below in order to understand and correctly use this information. Brand Names: US Requip XL [DSC] Brand Names: Linda JAMP-Ropinirole; PMS-Ropinirole [DSC]; RAN-Ropinirole; TEVA-Ropinirole What is this drug used for? It is used to treat Parkinson's disease. It is used to treat restless leg syndrome. What do I need to tell my doctor BEFORE I take this drug? If you are allergic to this drug; any part of this drug; or any other drugs, foods, or substances. Tell your doctor about the allergy and what signs you had. If you are taking another drug that has the same drug in it. This drug may interact with other drugs or health problems. Tell your doctor and pharmacist about all of your drugs (prescription or OTC, natural products, vitamins) and health problems. You must check to make sure that it is safe for you to take this drug with all of your drugs and health problems. Do not start, stop, or change the dose of any drug withoutchecking with your doctor. What are some things I need to know or do while I take this drug? For all uses of this drug: Tell all of your health care providers that you take this drug. This includes your doctors, nurses,pharmacists, and dentists. Avoid driving and doing other tasks or actions that call for you to be alert until you see how thisdrug affects you. To lower the chance of feeling dizzy or passing out, rise slowly if you have been sitting or lying down. Be careful going up and down stairs. Do not stop this drug without talking to your doctor. When you stop this drug, you may have signs of withdrawal. If you need to stop this drug, follow how to stop it as your doctor has told you. Callyour doctor right away if you have any of these signs when lowering the dose or stopping this drug:fever, confusion, severe muscle stiffness, not caring about things, anxiety, depression, feeling tired, trouble sleeping, sweating, or pain. If you start or stop smoking, talk with your doctor. How much drug you take may need to be changed. Talk with your doctor before you use alcohol, marijuana or other forms of cannabis, or prescriptionor OTC drugs that may slow your actions. Check blood pressure and heart rate as the doctor has told you. Neuroleptic malignant syndrome (NMS) is a severe and sometimes deadly health problem that has happened when drugs like this one were stopped all of a sudden. NMS has also happened when the dose was lowered. Call your doctor right away if you have any fever, muscle cramps or stiffness, dizziness, severe headache, confusion, change in thinking, fast or abnormal heartbeat, or are sweating a lot. If you are 65 or older, use this drug with care. You could have more side effects. Tell your doctor if you are , plan on getting , or are breast- feeding. You will need to talk about the benefits and risks to you and the baby. Restless leg syndrome: Tell your doctor if your signs become worse or start earlier in the day. What are some side effects that I need to call my doctor about right away? WARNING/CAUTION: Even though it may be rare, some people may have very bad and sometimes deadly side effects when taking a drug. Tell your doctor or get medical help right away if you have any of thefollowing signs or symptoms that may be related to a very bad side effect: Signs of an allergic reaction, like rash; hives; itching; red, swollen, blistered, or peeling skin with or without fever; wheezing; tightness in the chest or throat; trouble breathing, swallowing, ortalking; unusual hoarseness; or swelling of the mouth, face, lips, tongue, or throat. Signs of high or low blood pressure like very bad headache or dizziness, passing out, or change in eyesight. Signs of a urinary tract infection (UTI) like blood in the urine, burning or pain when passing urine, feeling the need to pass urine often or right away, fever, lower stomach pain, or pelvic pain. Feeling confused, not able to focus, or change in behavior. Strong urges that are hard to control (such as eating, gambling, sex, or spending money). Change in eyesight. Chest pain or pressure. Fast, slow, or abnormal heartbeat. Hallucinations (seeing or hearing things that are not there). Mood changes. Shortness of breath. Trouble controlling body movements that is new or worse. Swelling. A burning, numbness, or tingling feeling that is not normal. Memory problems or loss. Fever. Muscle stiffness. Some people have fallen asleep during activities like driving, eating, or talking. Some people did not feel sleepy and felt alert right before falling asleep. This has happened up to 1 year after this drug was started. If you fall asleep during activities, do not drive or do other tasks or actions that call for you to be alert while you take this drug. Call your doctor right away if this happens or you feel very sleepy. What are some other side effects of this drug? All drugs may cause side effects. However, many people have no side effects or only have minor sideeffects. Call your doctor or get medical help if any of these side effects or any other side effects bother you or do not go away: Constipation, diarrhea, stomach pain, upset stomach, or throwing up. Feeling dizzy, sleepy, tired, or weak. Headache. Sweating a lot. Dry mouth. Joint pain. Feeling nervous and excitable. Shakiness. Anxiety. Nose or throat irritation. Back pain. These are not all of the side effects that may occur. If you have questions about side effects, call your doctor. Call your doctor for medical advice about side effects. You may report side effects to your national health agency. How is this drug best taken? Use this drug as ordered by your doctor. Read all information given to you. Follow all instructionsclosely. All products: Take with or without food. Keep taking this drug as you have been told by your doctor or other health care provider, even if you feel well. If you stop taking this drug, talk with your doctor. You may need to be restarted at a lower dose and raise the dose slowly. Tablets: For restless leg syndrome, take this drug 1 to 3 hours before bedtime. Extended-release tablets: Swallow whole. Do not chew, break, or crush. If you have a health problem like diarrhea where this drug goes through the body too quickly, you may see something that looks like the tablet in your stool. If this happens, talk with your doctor. What do I do if I miss a dose? Take a missed dose as soon as you think about it. If it is close to the time for your next dose, skip the missed dose and go back to your normal time. Do not take 2 doses at the same time or extra doses. If you miss a few days of this drug, call your doctor to find out how to restart. How do I store and/or throw out this drug? Store at room temperature protected from light. Store in a dry place. Do not store in a bathroom. Keep lid tightly closed. Keep all drugs in a safe place. Keep all drugs out of the reach of children and pets. Throw away unused or drugs. Do not flush down a toilet or pour down a drain unless you are told to do so. Check with your pharmacist if you have questions about the best way to throw out drugs. There may be drug take-back programs in your area. General drug facts If your symptoms or health problems do not get better or if they become worse, call your doctor. Do not share your drugs with others and do not take anyone else's drugs. Some drugs may have another patient information leaflet. If you have any questions about this drug,please talk with your doctor, nurse, pharmacist, or other health care provider. If you think there has been an overdose, call your poison control center or get medical care right away. Be ready to tell or show what was taken, how much, and when it happened. Last Reviewed [id number] Consumer Information Use and Disclaimer This generalized information is a limited summary of diagnosis, treatment, and/or medication information. It is not meant to be comprehensive and should be used as a tool to help the user understand and/or assess potential diagnostic and treatment options. It does NOT include all information about conditions, treatments, medications, side effects, or risks that may apply to a specific patient. Itis not intended to be medical advice or a substitute for the medical advice, diagnosis, or treatment of a health care provider based on the health care provider's examination and assessment of a patient's specific and unique circumstances. Patients must speak with a health care provider for complete information about their health, medical questions, and treatment options, including any risks or benefits regarding use of medications. This information does not endorse any treatments or medications as safe, effective, or approved for treating a specific patient. [employer] and its affiliatesdisclaim any warranty or liability relating to this information or the use thereof. The use of thisinformation is governed by the Terms of Use, available at https://www.CoverItLive.[employer]/en/know/utgcpllu-iexywuuhafmgy-osqtr. 2022 [employer]. and its affiliates and/or licensors. All rights reserved. Use of [employer] is subject to the Terms of Use. documented in this encounterPremier Health Atrium Medical Center07-06-2023 History of Present illness Narrative* Sanjay Abbasi PA-C - 08/24/2022 1:00 PM EDT 62 year old female with c/o 4 week f/u regarding pain States prednisone really helped, saved my life. 07/07/2022 visit with me: c/o severe pain in all her joints over over last month worsening to point not bearable. Ice, heat, ibuprofen 4 tabs (800mg) once or twice a day which helps. Taking [place] twice a day. Toes, ankles, knees ,hips, lower back, shoulders elbow, wrists Knees are swollen, left elbow swollen. Sister has RA. 07/27/[address] Herbert started gabapentin 300 twice a day for pain in lower back and legs. Took gabapentin x 2 weeks but feels it increase swelling so she cut back to one a day which improved swelling. Has consult to pain management Dr. Rai. Called three times but hasn't gotten a response. Component Latest Ref Rng & Units 05/08/2022 07/05/2022 07/07/2022 Protein, Total 6.3 - 8.0 g/dL 6.3 Albumin 3.9 - 4.9 g/dL 4.3 Calcium 8.5 - 10.2 mg/dL 9.6 9.7 Bilirubin, Total 0.2 - 1.3 mg/dL 0.4 Alkaline Phosphatase 34 - 123 U/L 119 AST 13 - 35 U/L 15 ALT 7 - 38 U/L 14 Glucose 74 - 99 mg/dL 177 (H) 155 (H) BUN 7 - 21 mg/dL 20 19 Creatinine 0.58 - 0.96 mg/dL 0.54 (L) 0.55 (L) Sodium 136 - 144 mmol/L 141 140 Potassium 3.7 - 5.1 mmol/L 4.5 4.3 Chloride 97 - 105 mmol/L 103 102 CO2 22 - 30 mmol/L 26 27 Anion Gap 9 - 18 mmol/L 12 11 eGFR >=60 mL/min/1.73m 104 104 Hemoglobin A1C 4.3 - 5.6 % 7.1 (H) Estimated Average Glucose mg/dL 157 Normalized CAlcium 1.08 - 1.30 mmol/L 1.22 Ionized Calcium 1.08 - 1.30 mmol/L 1.18 Vitamin D 25 Hydroxy 31.0 - 80.0 ng/mL 56.4 PTH, Intact 15 - 65 pg/mL 25 38 IGOR Negative Negative WSR 0 - 20 mm/hr 29 (H) CRP <0.9 mg/dL 2.2 (H) Uric Acid 2.5 - 6.6 mg/dL 5.9 Current issue more important to patient is nerves. Was on abilify 25mg daily Stopped by neurologist due shaking all over, trouble especially with legs. Feels can't still: legs constantly moving. Aching terrible pain in legs makes her feeling like she has to move. No jerking. Will to go back on Abilify if it would stop this feeling. HISTORIES FAMILY HISTORY Problem Relation Age of Onset Hypertension Mother Heart Mother concha stroke Diabetes Mother Stroke Mother Massive- Arthritis Mother Osteoarthritis Hypertension Father COPD Father Hypertension Sister 2 Hypertension Brother 3 Heart Brother triple bypass at 48 Heart Maternal Aunt Heart Maternal Uncle Diabetes Brother 3 Brother's with diabetes Diabetes Sister Arthritis Sister Arthritis Brother Arthritis Brother Arthritis Brother PAST MEDICAL HISTORY Diagnosis Date Abnormal glandular Papanicolaou smear of cervix 05/30/05 ABNL GLANDULAR PAP SMEAR CERVIX Acute gastritis without mention of hemorrhage Anxiety state, unspecified Arrhythmia Chronic cholecystitis Chronic obstructive pulmonary disease (COPD) ([facility]) Congestive heart failure ([facility]) 10/03/2011 Diabetes ([facility]) diabetes II 2010 Diaphragmatic hernia without mention of obstruction or gangrene Dysthymic disorder Depression (non-psychotic) Esophageal reflux Essential hypertension, benign Generalized OA Hyperprolactinemia ([facility]) 10/13/2005 Localized osteoarthrosis not specified whether primary or secondary, lower leg Major depressive disorder, recurrent episode Mucous polyp of cervix 07/19/05 Other and unspecified anterior pituitary hyperfunction ([facility]) 10/13/05 elevated prolactin level-was normal in 2011 PMH - PAST MEDICAL HISTORY OF sleep apnea PMH - PAST MEDICAL HISTORY OF sleep apnea SVT (supraventricular tachycardia) ([facility]) 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 Type 2 diabetes mellitus without complication, with long-term current use of insulin ([facility]) 12/22/2013 PAST SURGICAL HISTORY Procedure Laterality Date BIOPSY CERVIX SINGLE/MULT/EXCISION OF LESION SPX 07/19/2005 endocervical polyp COLONOSCOPY FLX DX W/COLLJ SPEC WHEN PFRMD 01/09/2012 Colonoscopy repeat 10 years COLPOSCOPY CERVIX UPPER/ADJACENT VAGINA Colposcopy EGD TRANSORAL BIOPSY SINGLE/MULTIPLE 01/16/2007 ESOPHAGOGASTRODUODENOSCOPY TRANSORAL DIAGNOSTIC 01/09/2012 EGD HERNIA REPAIR HX 11/2015 ventral HYSTEROSCOPY DX 12/17/2014 D&C LAPS SURG CHOLECYSTECTOMY W/CHOLANGIOGRAPHY 05/15/2008 PARATHYROID Social History Tobacco Use Smoking status: Former Packs/day: 1.00 Years: 15.00 Pack years: 15.00 Types: Cigarettes Quit date: 12/20/1994 Years since quittin.6 Smokeless tobacco: Never Vaping Use Vaping Use: Never used Substance Use Topics Alcohol use: No Drug use: No ACTIVE PROBLEM LIST Anxiety State Essential Hypertension, Benign ABNL GLANDULAR PAP SMEAR CERVIX Irregular Menstrual Cycle Esophageal Reflux Morbid Obesity (Hcc) Obstructive Sleep Apnea Svt (Supraventricular Tachycardia) ([facility]) Benign Hypertensive Heart Disease With Chf, Nyha Class 2 ([facility]) Spondylolisthesis Lumbar Facet Arthropathy Ddd (Degenerative Disc Disease), Lumbar Ddd (Degenerative Disc Disease), Cervical Type 2 Diabetes Mellitus With Peripheral Neuropathy (Hcc) Pmb (Postmenopausal Bleeding) Dysthymia Major depressive disorder, recurrent episode, moderate (HCC) Pain Disorder With Psychological Factors Diffuse Myofascial Pain Syndrome Bilateral Primary Osteoarthritis of Knee Liver Disease Umbilical Hernia Without Obstruction and Without Gangrene Hypercalcemia Primary Hyperparathyroidism (Hcc) Dvt (Deep Venous Thrombosis) (Hcc) Traumatic Complete Tear of Right Rotator Cuff Debility Abnormality of Gait Due to Impairment of Balance Chronic Respiratory Failure With Hypoxia (Hcc) Former Smoker Pressure Injury of Skin of Thigh Current Outpatient Medications Medication Sig Dispense Refill HYDROcodone-acetaminophen (NORCO) 5-325 mg per tablet Take 1 tablet by mouth twice daily as needed for pain for up to 30 days. 60 tablet 0 ARTHRITIS PAIN RELIEF 650 mg CR tablet Take 1 tablet by mouth every 6 hours as needed. 120 tablet 3 DULoxetine (CYMBALTA) 60 mg capsule Take 1 capsule by mouth once daily. 90 capsule 1 gabapentin (NEURONTIN) 300 mg capsule Take 1 capsule by mouth twice daily. 60 capsule 11 tiZANidine (ZANAFLEX) 4 mg tablet Take 1 tablet by mouth every 8 hours as needed (muscle spasms). 30 tablet 0 triamcinolone (KENALOG IN ORABASE) 0.1 % paste 1/4 paste 2-3 times a day to canker until pain resolves 7.5 g 1 tiZANidine (ZANAFLEX) 4 mg tablet Take 1 tablet by mouth every 8 hours as needed (muscle spasms). 30 tablet 0 potassium chloride SR (MICRO-K) 8 mEq cpER Take 1 capsule by mouth daily with breakfast. 30 [id number] dulaglutide (TRULICITY) 3 mg/0.5 mL pen injector Inject 3 mg subcutaneously one time a week. 12 Each 1 albuterol HFA (VENTOLIN HFA) 90 mcg/actuation inhaler Inhale 2 Puffs as instructed every 4 hours asneeded for wheezing/shortness of breath. 1 Each 1 Cholecalciferol, Vitamin D3, 125 mcg (5,000 unit) cap Take 1 capsule by mouth once daily. 90 capsule 3 pravastatin (PRAVACHOL) 20 mg tablet Take 1 tablet by mouth daily at bedtime. 90 tablet 3 spironolactone (ALDACTONE) 25 mg tablet Take 1 tablet by mouth once daily. 30 tablet 5 furosemide (LASIX) 80 mg tablet Take 1 tablet by mouth once daily. 90 tablet 3 traZODone (DESYREL) 100 mg tablet Take 1 tablet by mouth daily at bedtime. 90 tablet 1 polyethylene glycol 3350 (MIRALAX, GLYCOLAX) 17 gram/dose powder Take 17 g by mouth once daily. 510g 5 insulin glargine (LANTUS SOLOSTAR U-100 INSULIN) 100 unit/mL (3 mL) Inject 25 Units subcutaneously daily at bedtime. 8 mL 11 blood sugar diagnostic (BLOOD GLUCOSE TEST) test strip Test blood sugars up to 4 times daily as directed. Dx: Type 2 DM - Controlled E11.9 Insulin: Yes. Trumetrix brand 360 Strip 3 Blood-Glucose Meter monitoring kit Glucose Meter of Choice - Kit - Dx: Type 2 DM - Controlled E11.9Use twice daily as directed 1 Each 0 Lancets lancets Test blood sugar(s) up to 4 times daily. Dx: Type 2 DM - Controlled E11.9 Insulin: Yes 100 Each 11 Insulin Maljamar, Disposable, (BD ULTRA-FINE MADI PEN NEEDLE) 32 gauge x 5/32 Use one needle for each dose. 2/day. 100 Each 11 ondansetron orally disintegrating (ZOFRAN ODT) 4 mg disintegrating tablet Take 1 tablet by mouth every 8 hours as needed for nausea/vomiting. 20 tablet 0 famotidine (PEPCID) 40 mg tablet Take 1 tablet by mouth once daily. 90 tablet 3 dulaglutide (TRULICITY) 1.5 mg/0.5 mL pen injector Inject 1.5 mg subcutaneously one time a week. Inject once per week. Discard Pen After 2 mL 11 lancets (TRUEPLUS LANCETS) 30 gauge Test four times daily Dx: 250.02 450 Each 3 ascorbic acid (VITAMIN C ORAL) Take 1 tablet by mouth once daily. ibuprofen (MOTRIN) 800 mg tablet Take 1 tablet by mouth every 8 hours as needed (FOR PAIN. TAKE WITH FOOD). 30 tablet 0 No current facility-administered medications for this visit. BP CONTROLLED (<130/80) Never done MAMMOGRAM due on 11/16/2016 PAP TESTING due on 11/16/2020 HPV TESTING due on 11/16/2020 COLORECTAL CANCER SCREENING due on 01/08/2022 EXAM: BP 124/72 Pulse 84 Resp 20 LMP 12/11/2008 SpO2 95% Pleasant morbidly obese adult woman in no acute distress. Alert and oriented all spheres. Normal affect and cognition. Speech normal. No deficits to learning or comprehension. Skin warm, dry, pink to lips and nailbeds. Normal turgor. Respirations regular and unlabored. Chest is normal shape. Lungs are clear to all bailey with good air exchange through out. HRRR without murmur or gallop. No lifts, heaves, or rubs. Extrem: no clubbing or cyanosis. Edema: non-pitting. Extremities are warm and pink with prompt capillary refill. DPP 2/4+ bilaterally, normal nails, normal sensation. ASSESSMENT/PLAN: 1. RLS (restless legs syndrome) - ICD9: 333.94, ICD10: G25.81 There is a possibility with duloxetine, gabapentin, tizanidine, trazodone for excess serotonin though this is rare. Check iron levels. Start Ropinirole: Educated on new medication administration, warnings and cautions, common side effects, anticipated duration or therapy, and instructions on cessation management to avoid risks if stops medication. Patient choice was discussed in shared decision making. - IRON + TIBC - CBC Call immediately if any worse. 4 week follow up on progress or sooner if needed. She will continue to contact Dr. Foy office for appointment. Sanjay Abbasi PA-C documented in this encounterPrem[facility]07-03-2023 Miscellaneous Notes* Telephone Encounter - Natalie Mohr - 08/21/2022 1:38 PM EDT Patient has been identified by name and date of : Yes Last office visit in this department: 07/27/2022 RX INSTRUCTIONS: Patient aware RX will be sent to pharmacy. No need to notify patient. Patient phones requesting refills as follows: Requested Prescriptions Pending Prescriptions Disp Refills HYDROcodone-acetaminophen (NORCO) 5-325 mg per tablet 60 tablet 0 Sig: Take 1 tablet by mouth twice daily as needed for pain for up to 30 days. Please review and advise. Natalie Mhor documented in this encounterPremier [facility]06-19-2023 Miscellaneous Notes* Telephone Encounter - Clarita Mathews APRN.CNP - 08/07/2022 10:12 AM EDT Script sent. Clarita Mathews APRN.OIL FIELD ROUSTABOUT * Telephone Encounter - Belgica Lane Pss - 08/07/2022 9:48 AM EDT Wilton Khan is calling Nehemiah Herbert MD today to request medication that is not on her current list: ARTHRITIS PAIN RELIEF 650 mg CR tablet 120 tablet 3 03/20/2022 04/19/2022 Sig: Take 1 tablet by mouth every 6 hours as needed. Sent to pharmacy as: ARTHRITIS PAIN RELIEF 650 mg CR tablet Class: Normal Route: ORAL Order: [id number] E-Prescribing Status: Receipt confirmed by pharmacy (03/20/2022 9:23 AM EST) Please send to [facility] today. Patient has been identified by name and birthdate. Duration of symptoms: N/A Person calling: self Call patient at: at home [phone] (home) [phone] (cell) Was an appointment scheduled: No Closing statement: Results or non-symptom based questions: Thank you for calling [facility], your call will be returned within the next business day. Belgica Lane Pss documented in this encounterPremier [facility]06-08-2023 History of Present illness Narrative* Nehemiah Herbert MD - 07/27/2022 2:42 PM EDT Patient presents with: F/U 3 Month HPI: Patient presents today for office visit for a routine visit. JOINT PAIN: last visit given prednisone. She continues to have worsening pain in her lower back andlegs. Continues to go all the way down the legs. She was seeing Dr Pacheco in the past. She had stopped. Steroids did help. She is using otc ibuprofen round the clock. Discussed risks of nsaids. She would be interested in seeing a new pain management physician. No new trauma. Is now using a scooter. Had xrays of her knees recenty showed severe oa. Her sed rate and crp are mildly up which could be related to her bmi. Her other rheum factors were ok. Her pth and calcium were ok. No recent back imaging. She is on gabapentin. She has numbness in both legs. Has been on chronic opiates that was started a number of years ago as above. No hx of misuse or abuse. Oarrs done. Tongue lesion: Used the kenalog paste as prescribed by Micah Abbasi at last visit. No improvement. Has been there for over two months. Used to smoke TREMOR:off of abilify. She still having the tremor. She is referred back back to neurology. Sugars have been good. No chest pain or shortness of breath. Tolerating her meds Needs order for a lift chair to help with transfers. Still treating her skin wounds with visiting nurse from [place] Had an a1c recently at 6.4 from [facility]. MEDICATIONS: Current Outpatient Medications Medication Sig HYDROcodone-acetaminophen (NORCO) 5-325 mg per tablet Take 1 tablet by mouth twice daily as needed for pain for up to 30 days. tiZANidine (ZANAFLEX) 4 mg tablet Take 1 tablet by mouth every 8 hours as needed (muscle spasms). triamcinolone (KENALOG IN ORABASE) 0.1 % paste 1/4 paste 2-3 times a day to canker until pain resolves tiZANidine (ZANAFLEX) 4 mg tablet Take 1 tablet by mouth every 8 hours as needed (muscle spasms). potassium chloride SR (MICRO-K) 8 mEq cpER Take 1 capsule by mouth daily with breakfast. gabapentin (NEURONTIN) 300 mg capsule Take 1 capsule by mouth daily at bedtime for 90 days. dulaglutide (TRULICITY) 3 mg/0.5 mL pen injector Inject 3 mg subcutaneously one time a week. albuterol HFA (VENTOLIN HFA) 90 mcg/actuation inhaler Inhale 2 Puffs as instructed every 4 hours asneeded for wheezing/shortness of breath. Cholecalciferol, Vitamin D3, 125 mcg (5,000 unit) cap Take 1 capsule by mouth once daily. pravastatin (PRAVACHOL) 20 mg tablet Take 1 tablet by mouth daily at bedtime. spironolactone (ALDACTONE) 25 mg tablet Take 1 tablet by mouth once daily. furosemide (LASIX) 80 mg tablet Take 1 tablet by mouth once daily. traZODone (DESYREL) 100 mg tablet Take 1 tablet by mouth daily at bedtime. polyethylene glycol 3350 (MIRALAX, GLYCOLAX) 17 gram/dose powder Take 17 g by mouth once daily. insulin glargine (LANTUS SOLOSTAR U-100 INSULIN) 100 unit/mL (3 mL) Inject 25 Units subcutaneously daily at bedtime. blood sugar diagnostic (BLOOD GLUCOSE TEST) test strip Test blood sugars up to 4 times daily as directed. Dx: Type 2 DM - Controlled E11.9 Insulin: Yes. Trumetrix brand Blood-Glucose Meter monitoring kit Glucose Meter of Choice - Kit - Dx: Type 2 DM - Controlled E11.9Use twice daily as directed Lancets lancets Test blood sugar(s) up to 4 times daily. Dx: Type 2 DM - Controlled E11.9 Insulin: Yes Insulin Maljamar, Disposable, (BD ULTRA-FINE MADI PEN NEEDLE) 32 gauge x 32 Use one needle for each dose. 2/day. ondansetron orally disintegrating (ZOFRAN ODT) 4 mg disintegrating tablet Take 1 tablet by mouth every 8 hours as needed for nausea/vomiting. famotidine (PEPCID) 40 mg tablet Take 1 tablet by mouth once daily. dulaglutide (TRULICITY) 1.5 mg/0.5 mL pen injector Inject 1.5 mg subcutaneously one time a week. Inject once per week. Discard Pen After DULoxetine (CYMBALTA) 60 mg capsule Take 1 capsule by mouth once daily. lancets (TRUEPLUS LANCETS) 30 gauge Test four times daily Dx: 250.02 ascorbic acid (VITAMIN C ORAL) Take 1 tablet by mouth once daily. ibuprofen (MOTRIN) 800 mg tablet Take 1 tablet by mouth every 8 hours as needed (FOR PAIN. TAKE WITH FOOD). No current facility-administered medications for this visit. ALLERGIES: ALLERGIES Allergen Reactions Lyrica [Pregabalin] Anaphylaxis Not sure if accurate. Can take gabapentin. Patient is unsure of reaction. Accupril [Quinapril* Intolerance dizziness Actos [Pioglitazone] Swelling Amlodipine Swelling Leg edema Atenolol Swelling Atorvastatin Intolerance Muscle cramps and weakness Celebrex [Celecoxib] Swelling Effexor [Venlafaxin* swelling high blood pressure Januvia [Sitaglipti* GI Upset, Other: See Comments Patient states she couldn't eat Metoprolol Swelling Mobic [Meloxicam] GI Upset Prozac [Fluoxetine * Intolerance tremor Remeron [Mirtazapin* Rash Risperidone Mental Status Change Seroquel [Quetiapin* hypertension,swelling Vancomycin Itching, Other: See Comments, Rash red all over Other reaction(s): Other: See Comments red all over Vioxx [Rofecoxib] GI Upset Wellbutrin [Bupropi* Intolerance nightmares PAST MEDICAL HISTORY Diagnosis Date Abnormal glandular Papanicolaou smear of cervix 05/30/05 ABNL GLANDULAR PAP SMEAR CERVIX Acute gastritis without mention of hemorrhage Anxiety state, unspecified Arrhythmia Chronic cholecystitis Chronic obstructive pulmonary disease (COPD) ([facility]) Congestive heart failure ([facility]) 10/03/2011 Diabetes ([facility]) diabetes II 2010 Diaphragmatic hernia without mention of obstruction or gangrene Dysthymic disorder Depression (non-psychotic) Esophageal reflux Essential hypertension, benign Generalized OA Hyperprolactinemia ([facility]) 10/13/2005 Localized osteoarthrosis not specified whether primary or secondary, lower leg Major depressive disorder, recurrent episode Mucous polyp of cervix 07/19/05 Other and unspecified anterior pituitary hyperfunction ([facility]) 10/13/05 elevated prolactin level-was normal in 2011 PMH - PAST MEDICAL HISTORY OF sleep apnea PMH - PAST MEDICAL HISTORY OF sleep apnea SVT (supraventricular tachycardia) ([facility]) 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 Type 2 diabetes mellitus without complication, with long-term current use of insulin ([facility]) 12/22/2013 PAST SURGICAL HISTORY Procedure Laterality Date BIOPSY CERVIX SINGLE/MULT/EXCISION OF LESION SPX 07/19/05 endocervical polyp COLONOSCOPY FLX DX W/COLLJ SPEC WHEN PFRMD 01/09/2012 Colonoscopy repeat 10 years COLPOSCOPY CERVIX UPPER/ADJACENT VAGINA Colposcopy EGD TRANSORAL BIOPSY SINGLE/MULTIPLE 01/16/07 ESOPHAGOGASTRODUODENOSCOPY TRANSORAL DIAGNOSTIC 01/09/2012 EGD HERNIA REPAIR HX 11/2015 ventral HYSTEROSCOPY DX 12/17/2014 D&C LAPS SURG CHOLECYSTECTOMY W/CHOLANGIOGRAPHY 05/15/08 FAMILY HISTORY Problem Relation Age of Onset Hypertension Mother Heart Mother concha stroke Diabetes Mother Stroke Mother Massive- Arthritis Mother Osteoarthritis Hypertension Father COPD Father Hypertension Sister 2 Hypertension Brother 3 Heart Brother triple bypass at 48 Heart Maternal Aunt Heart Maternal Uncle Diabetes Brother 3 Brother's with diabetes Diabetes Sister Arthritis Sister Arthritis Brother Arthritis Brother Arthritis Brother Social History Tobacco Use Smoking status: Former Packs/day: 1.00 Years: 15.00 Pack years: 15.00 Types: Cigarettes Quit date: 12/20/1994 Years since quittin.6 Smokeless tobacco: Never Vaping Use Vaping Use: Never used Substance Use Topics Alcohol use: No Drug use: No Reviewed current medications, allergies, past medical history, surgical history, family history andsocial history today. REVIEW OF SYSTEMS All other reviewed and negative other than HPI. HEALTH MAINTENANCE: Reviewed health maintenance issues today and recommended the following in detail. BP CONTROLLED (<130/80) Never done DTAP,TDAP,TD(1 - Tdap) due on 02/08/2007 SHINGRIX VACCINE(1 of 2) Never done MAMMOGRAM due on 11/16/2016 COLORECTAL CANCER SCREENING- has stool test at home. VITALS: BP 138/70 Pulse 82 Resp 18 LMP 12/11/2008 SpO2 98% Last 4 Encounter Wt Readings: Date: Wt: 04/05/2022 0 kg () 02/15/2022 176.9 kg (390 lb) 11/17/2021 172.8 kg (381 lb) 07/06/2021 172.8 kg (381 lb) PHYSICAL EXAMINATION: General appearance: Well appearing, alert, in no acute distress, well-hydrated, well nourished. 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 Morbidly obese Heent. Lesion on lateral edge of tongue that has not healed for several months. Lungs: Lungs clear to auscultation. No wheezing, rhonchi, rales Heart: RRR without murmur, gallop, or rubs. No ectopy Abdomen: Normal abdominal exam, Abdomen soft, non-tender. Bowel sounds normal. No masses, organomegaly Extremities: No deformities,new edema, skin discoloration, clubbing or cyanosis. Good capillary refill. Musculoskeletal: No joint swelling, deformity, or tenderness Peripheral pulses: Normal ASSESSMENT/PLAN: 1. Lumbar radiculopathy - ICD9: 724.4, ICD10: M54.16 (primary diagnosis) - is already on norco prn. Has seen pain management previously. No recent imaging. She is willing to see pain management again. Increase gabapentin. Attempt plain film xrays. Her weight and neuropathy and oa is not helping with overall issues. - XR LUMBAR GENERAL 3V AP/LAT/L5-S1 - CONSULT TO PAIN MGT - DME SUPPLY OR ACCESSORY, NOS 2. Type 2 diabetes mellitus with peripheral neuropathy (HCC) - ICD9: 250.60, 357.2, ICD10: E11.42 - doing better. 3. Diffuse myofascial pain syndrome - ICD9: 729.1, ICD10: M79.18 - reviewed labs. Explained chronic steroids orally are not an option. 4. Essential hypertension, benign - ICD9: 401.1, ICD10: I10 - Controlled - Discussed need for and benefit of weight loss. Have discussed multiple times. 5. DDD (degenerative disc disease), lumbar - ICD9: 722.52, ICD10: M51.36 - XR LUMBAR GENERAL 3V AP/LAT/L5-S1 - CONSULT TO PAIN MGT - DME SUPPLY OR ACCESSORY, NOS 6. DDD (degenerative disc disease), cervical - ICD9: 722.4, ICD10: M50.30 - XR LUMBAR GENERAL 3V AP/LAT/L5-S1 - GABAPENTIN 300 MG CAPSULE - CONSULT TO PAIN MGT - DME SUPPLY OR ACCESSORY, NOS 7. Bilateral primary osteoarthritis of knee - ICD9: 715.16, ICD10: M17.0 - XR LUMBAR GENERAL 3V AP/LAT/L5-S1 - CONSULT TO PAIN MGT 8. Chronic respiratory failure with hypoxia (HCC) - ICD9: 518.83, 799.02, ICD10: J96.11 - uses oxygen at hs 9. Obstructive sleep apnea - ICD9: 327.23, ICD10: G47.33 - continue with treatment. Overdue to see Dr Myles. 10. Benign hypertensive heart disease with CHF, NYHA class 2 (HCC) - ICD9: 402.11, 428.0, ICD10: I11.0 - stable. 11. SVT (supraventricular tachycardia) (HCC) - ICD9: 427.89, ICD10: I47.1 - stable. 12. Pain disorder with psychological factors - ICD9: 307.80, ICD10: F45.42 - as above 13. Gastroesophageal reflux disease without esophagitis - ICD9: 530.81, ICD10: K21.9 - stable. 14. Primary hyperparathyroidism (HCC) - ICD9: 252.01, ICD10: E21.0 - s/p parathyroidectomy. Labs are stable. 15. Debility - ICD9: 799.3, ICD10: R53.81 - as above. 16. Anxiety state - ICD9: 300.00, ICD10: F41.1 - continue meds. 17. Major depressive disorder, recurrent episode, moderate (HCC) - ICD9: 296.32, ICD10: F33.1 - continue meds. 18. Tongue lesion - ICD9: 529.8, ICD10: K14.8 - CONSULT TO ENT Nehemiah Herbert MD documented in this encounterPrem[facility]05-09-2023 Miscellaneous Notes* Telephone Encounter - Keo Napier LPN - 06/27/2022 3:38 PM EDT Pt notified. She verbalized understanding. Keo Napier LPN * Telephone Encounter - Nehemiah Herbert MD - 06/27/2022 3:04 PM EDT Let her know her oximetry shows her oxygen level drops significantly at times while asleep should be using her oxygen at night while sleeping. documented in this encounterPrem[facility]05-04-2023 Miscellaneous Notes* Telephone Encounter - Louie Wade Ma - 06/22/2022 11:50 AM EDT [facility] 05/08/22 * Telephone Encounter - Dimple Ramirez Pss - 06/22/2022 11:44 AM EDT Patient has been identified by name and date of : Yes Requested Prescriptions Pending Prescriptions Disp Refills tiZANidine (ZANAFLEX) 4 mg tablet 30 tablet 0 Sig: Take 1 tablet by mouth every 8 hours as needed (muscle spasms). HYDROcodone-acetaminophen (NORCO) 5-325 mg per tablet 60 tablet 0 Sig: Take 1 tablet by mouth twice daily as needed for pain for up to 30 days. RX INSTRUCTIONS: Patient aware RX will be sent to pharmacy. No need to notify patient. Dimple Ramirez Pss documented in this encounterPrem[facility]05-01-2023 Miscellaneous Notes* Telephone Encounter - Louie Wade Ma - 06/19/2022 12:48 PM EDT Patient notified * Telephone Encounter - Nehemiah Herbert MD - 06/19/2022 12:05 PM EDT Rx sent. It is slightly less amount of potassium. Recheck bmp in a few weeks. * Telephone Encounter - Doris Hutton - 06/19/2022 8:53 AM EDT Patient calling in for a refill of her Potassium prescription and is asking if she can please have the capsules instead of the tablets. She has a hard time swallowing the tablets. TY documented in this encounterPremier [facility]04-03-2023 Miscellaneous Notes* Telephone Encounter - Dilia Helton Pss - 05/22/2022 8:16 AM EDT Pharmacy verified in [facility] Patient has been identified by name and date of : Yes Patient aware RX will be sent to pharmacy. No need to notify patient. Patient phones for refill(s): Requested Prescriptions Pending Prescriptions Disp Refills tiZANidine (ZANAFLEX) 4 mg tablet 30 tablet 0 Sig: Take 1 tablet by mouth every 8 hours as needed (muscle spasms). gabapentin (NEURONTIN) 300 mg capsule 30 capsule 2 Sig: Take 1 capsule by mouth daily at bedtime for 90 days. Date of last office visit : 05/08/2022 Date of next office visit : 07/27/2022 Last 2 Encounter Wt Readings: Date: Wt: 04/05/2022 0 kg () 02/15/2022 176.9 kg (390 lb) Not applicable Please advise. Dilia Helton Pss ] documented in this encounterPremier Health [facility] Center03-29-2023 Miscellaneous Notes* Telephone Encounter - Leticia Hernández LPN - 05/17/2022 8:53 AM EDT [facility]--05/08/22 Nov--07/27/22 Last refill--04/03/22 60 with 0 refills Last labs--05/08/22 * Telephone Encounter - Narda Fournier - 05/17/2022 8:33 AM EDT Patient has been identified by name and date of : Yes Requested Prescriptions Pending Prescriptions Disp Refills HYDROcodone-acetaminophen (NORCO) 5-325 mg per tablet 60 tablet 0 Sig: Take 1 tablet by mouth twice daily as needed for pain for up to 30 days. RX INSTRUCTIONS: Patient aware RX will be sent to pharmacy. No need to notify patient. Narda Fournier documented in this encounterPremier Health [facility] Center03-20-2023 Instructions* Patient Instructions* Sanjay Abbasi PA-C - 05/08/2022 10:38 AM EDT Facts About the Common Cold and Upper Respiratory Infection: Common symptoms include: sore throat, tender lymph nodes, low grade fever 99- 101F for first few days, watery nasal drip that progresses to thick yellow-green mucus on blowing and on coughing, facial/sinus pressure, headache, chest tightness and tiredness/ fatigue. Usually they peak with the worst symptoms about 5-7 days and take another 5-7 days to clear, in other words 10-14 days. Occasionally there will be a persistent nagging cough or some residual minor nasal congestion up to several weeks. Viral infections are not susceptible to antibiotics. Due to the critical issues with global antibiotic resistance, we do not prescribe antibiotics if we suspect viral sources. Antibiotics can cause serious complications and therefore should be reserved for only serious infections. Get plenty of rest. Force fluids daily with water and juices. Nasal saline spray may help to keep nose open and moist: 2-3 squirts each side every few hours. This also help to rinse out virus and bacteria causing infection. Cool mist humidifier in room during sleep. May use OTC Tylenol or Ibuprofen as direct for discomfort. For sore throat, warm salt water gargles, Chlorseptic spray, lozenges or other OTC sore throat remedies may help. Decongestants such as plain Sudafed or with expectorant such as Mucinex D may help with nasal stuffiness or facial and sinus pressure. Generics are fine. These are over the counter but require an adult signature. Oxymetolazine nasal decongestants (Afrin, Dristan, Severino's) may also help (in place of oral decongestants) but should not be used longer than 48-72 hours due to potential rebound congestion. OTC antihistamines such Benadryl (make cause drowsiness) or Zyrtec/ Clariten/ Libby (non-drowsy) may help watery nasal drainage though they are generally not recommended because they dry mucus and make it sticky. The flow of mucus is important to help your body rid the virus. If cough keeps you awake at night, try OTC remedies first, such as Nyquil, Delsym, Severino's 44 or Mucinex DM. If this doesn't help you sleep, call the office for a prescription. Be careful if you are combining cough and cold medications that you aren't doubling the medicines. If you aren't sure: ask the pharmacist for help. Cough or sneeze into your sleeve to prevent spread of infected secretions. Wash your hands frequently. Try not to cough or sneeze on surfaces others might touch. If symptoms fail to improve in 5-7 days, fever > 100.5F, general worsening, or other concerning symptoms, return to [facility] or Nehemiah Herbert MD. documented in this encounterPrem[facility]-20-[facility] History of Present illness Narrative* Sanjay Abbasi PA-C - 05/08/2022 10:00 AM EDT 62 year old female with c/o here for routine follow up Svt (supraventricular tachycardia) (hcc) (primary encounter diagnosis) Benign hypertensive heart disease with chf, nyha class 2 (hcc) Cardiovascular interval hx: no chnges Current meds: Furosemide 80 mg daily Spironolactone 25 mg daily Pravachol 20 mg daily Use of NTG: No Chest pain, arm, jaw pain, neck, or upper back pain suggestive of angina: No. SOB: a little more SOB with current cold Dyspnea with exertion: No orthopnea: sleeps in recliner Cough : Yes, x 4-5 days w/ nasal congestion. No fever but chilled. + wheezing. No loss of smell or taste. No N/V/D. No labored breathing racing or irregular heartbeats: No palpitations: No syncopal sx: No Headache: No Unexplainable fatigue No Leg swelling: No Nausea: No diaphoresis: No Heartburn: No Claudication: No Smoking: No Following Low cholesterol, high fiber diet? Trying to eat well If on statin: muscle aches? Yes If on statin: GI sx or diarrhea? Yes Additional history none. Lab review: Component Latest Ref Rng & Units 11/17/2021 02/15/2022 03/10/2022 WBC 3.70 - 11.00 k/uL 7.09 6.63 6.85 RBC 3.90 - 5.20 m/uL 4.54 4.78 4.52 Hemoglobin 11.5 - 15.5 g/dL 13.1 13.8 13.6 Hematocrit 36.0 - 46.0 % 41.4 42.8 41.7 MCV 80.0 - 100.0 fL 91.2 89.5 92.3 MCH 26.0 - 34.0 pg 28.9 28.9 30.1 MCHC 30.5 - 36.0 g/dL 31.6 32.2 32.6 RDW-CV 11.5 - 15.0 % 12.9 13.2 13.2 Platelet Count 150 - 400 k/uL 244 270 260 MPV 9.0 - 12.7 fL 11.0 10.4 10.9 Neut% % 76.5 74.4 71.5 Abs Neut (ANC) 1.45 - 7.50 k/uL 5.43 4.93 4.89 Lymph% % 16.1 18.1 18.2 Abs Lymph 1.00 - 4.00 k/uL 1.14 1.20 1.25 [place]% % 5.4 5.4 7.0 Abs [place] <0.87 k/uL 0.38 0.36 0.48 Eosin% % 1.6 1.5 2.6 Abs Eosin <0.46 k/uL 0.11 0.10 0.18 Baso% % 0.3 0.3 0.4 Abs Baso <0.11 k/uL <0.03 <0.03 0.03 Immature Gran % % 0.1 0.3 0.3 IMMATURE GRANS (ABS) <0.10 k/uL <0.03 <0.03 <0.03 NRBC /100 WBC 0.0 0.0 0.0 Absolute nRBC <0.01 k/uL <0.01 <0.01 <0.01 DTYPE Auto Auto Auto Protein, Total 6.3 - 8.0 g/dL 6.8 Albumin 3.9 - 4.9 g/dL 4.2 Calcium 8.5 - 10.2 mg/dL 9.5 9.8 9.3 Bilirubin, Total 0.2 - 1.3 mg/dL 0.5 Alkaline Phosphatase 34 - 123 U/L 123 AST 13 - 35 U/L 15 ALT 7 - 38 U/L 12 Glucose 74 - 99 mg/dL 175 (H) 210 (H) 188 (H) BUN 7 - 21 mg/dL 17 22 (H) 21 Creatinine 0.58 - 0.96 mg/dL 0.55 (L) 0.67 0.58 Sodium 136 - 144 mmol/L 142 142 138 Potassium 3.7 - 5.1 mmol/L 4.4 4.6 4.5 Chloride 97 - 105 mmol/L 103 99 100 CO2 22 - 30 mmol/L 30 29 29 Anion Gap 9 - 18 mmol/L 9 14 9 eGFR >=60 mL/min/1.73m 104 99 102 Total Cholesterol, Nonfasting <200 mg/dL 130 Triglycerides, Nonfasting <150 mg/dL 125 HDL Cholesterol, Nonfasting >39 mg/dL 44 LDL Cholesterol, Nonfasting <100 mg/dL 61 Non HDL Cholesterol, Nonfasting <130 mg/dL 86 VLDL Cholesterol, Nonfasting <30 mg/dL 25 Total Chol/HDL Ratio, Nonfasting <5.10 mg/dL 2.95 LDL/HDL Ratio, Nonfasting <2.54 mg/dL 1.39 Chronic respiratory failure with hypoxia (hcc) Obstructive sleep apnea Wears O2 2L/min NC BiPaP not wearing due to recall, hasn't gotten a new machine. Morbid obesity (hcc) Type 2 diabetes mellitus with peripheral neuropathy (hcc) Current medications: Insulin glargine 25 units nightly Metformin ER 500 mg 1 tablet daily with breakfast Dulaglutide 1.5 mg subcu weekly Taking medication as directed consistently? Yes Medication side effects: Medical Issues / Complications: hypertension, hyperlipidemia, peripheral neuropathy, and cardiovascular disease Checking blood sugars at home? Yes. Checks 3-4 times a day. 141 this morning. Watching diet? Yes Physical Activity: Sedentary Hypoglycemic spells? No Any visual disturbance? No Chest pain? No New numbness, tingling or loss of sensation? No, has chronic issues Any recent foot problems, sores or rashes? No Any recent or sudden weight loss? No Change in urination? No. If yes: Any recent illness? No Last eye exam: 05/23/2021 Last foot exam: up to date. HBA1C: Hemoglobin A1C (%) Date Value 02/15/2022 7.7 11/17/2021 6.7 12/24/2020 7.5 12/13/2020 7.2 ) CMP: Glucose 188 03/10/2022 BUN 21 03/10/2022 Creatinine 0.58 03/10/2022 Sodium 138 03/10/2022 Potassium 4.5 03/10/2022 Chloride 100 03/10/2022 CO2 29 03/10/2022 Protein, Total 6.8 11/17/2021 Albumin 4.2 11/17/2021 Calcium 9.3 03/10/2022 Alkaline Phosphatase 123 11/17/2021 Bilirubin, Total 0.5 11/17/2021 AST 15 11/17/2021 ALT 12 11/17/2021 Last 2 Encounter Wt Readings: Date: Wt: 04/05/2022 0 kg () 02/15/2022 176.9 kg (390 lb) Primary hyperparathyroidism (hcc) Component Latest Ref Rng & Units 12/24/2020 01/12/2021 07/21/2021 07/25/2021 08/12/2021 02/15/2022 Normalized CAlcium 1.08 - 1.30 mmol/L 1.16 1.21 Ionized Calcium 1.08 - 1.30 mmol/L 1.19 1.25 Vitamin D 25 Hydroxy 31.0 - 80.0 ng/mL 32.2 33.7 31.2 PTH, Intact 15 - 65 pg/mL 123 (H) 10 (L) 13.4 (L) 75 (H) 28 Calcium 8.5 - 10.2 mg/dL 10.6 (H) 10.2 8.9 Dysthymia Major depressive disorder, recurrent episode, moderate (hcc) Current medications: Trazodone 100 mg daily Aripiprazole 5mg recently dropped Doing fine on lower dose. Want to continue weaning off. Had severe depression after mother . Diaphragmatic hernia without obstruction and without gangrene Gastroesophageal reflux disease without esophagitis Current medication: Famotidine 40 mg daily at morning Current symptoms: none. Last Mg level if on PPI chronically: N/a. Heartburn is controlled: Yes. Dysphagia: none but sometimes feels can't swallow, tries several times and gets anxious Bloody or black stools: No. Bowel changes: No. Pain disorder with psychological factors Diffuse myofascial pain syndrome Lumbar facet arthropathy Ddd (degenerative disc disease), cervical Spondylolisthesis, unspecified spinal region Current medications: Tizanidine 4 mg every 8 hours as needed muscle spasm [place] 5-325 mg 1 tablet twice daily as needed Neurontin 300 mg 1 capsule daily at bedtime Ibuprofen 400mg twice a day Tylenol Arthritis 2 tabs once a day. States doing better than she was: more active, getting up and moving more. Sore on back of calf is almost healed. HISTORIES FAMILY HISTORY Problem Relation Age of Onset Hypertension Mother Heart Mother concha stroke Diabetes Mother Stroke Mother Massive- Arthritis Mother Osteoarthritis Hypertension Father COPD Father Hypertension Sister 2 Hypertension Brother 3 Heart Brother triple bypass at 48 Heart Maternal Aunt Heart Maternal Uncle Diabetes Brother 3 Brother's with diabetes Diabetes Sister Arthritis Sister Arthritis Brother Arthritis Brother Arthritis Brother PAST MEDICAL HISTORY Diagnosis Date Abnormal glandular Papanicolaou smear of cervix 05/30/05 ABNL GLANDULAR PAP SMEAR CERVIX Acute gastritis without mention of hemorrhage Anxiety state, unspecified Arrhythmia Chronic cholecystitis Chronic obstructive pulmonary disease (COPD) (HCC) Congestive heart failure (HCC) 10/03/2011 Diabetes ([facility]) diabetes II 2010 Diaphragmatic hernia without mention of obstruction or gangrene Dysthymic disorder Depression (non-psychotic) Esophageal reflux Essential hypertension, benign Generalized OA Hyperprolactinemia ([facility]) 10/13/2005 Localized osteoarthrosis not specified whether primary or secondary, lower leg Major depressive disorder, recurrent episode Mucous polyp of cervix 07/19/05 Other and unspecified anterior pituitary hyperfunction ([facility]) 10/13/05 elevated prolactin level-was normal in 2011 PMH - PAST MEDICAL HISTORY OF sleep apnea PMH - PAST MEDICAL HISTORY OF sleep apnea SVT (supraventricular tachycardia) ([facility]) 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 Type 2 diabetes mellitus without complication, with long-term current use of insulin ([facility]) 12/22/2013 PAST SURGICAL HISTORY Procedure Laterality Date BIOPSY CERVIX SINGLE/MULT/EXCISION OF LESION SPX 07/19/05 endocervical polyp COLONOSCOPY FLX DX W/COLLJ SPEC WHEN PFRMD 01/09/2012 Colonoscopy repeat 10 years COLPOSCOPY CERVIX UPPER/ADJACENT VAGINA Colposcopy EGD TRANSORAL BIOPSY SINGLE/MULTIPLE 01/16/07 ESOPHAGOGASTRODUODENOSCOPY TRANSORAL DIAGNOSTIC 01/09/2012 EGD HERNIA REPAIR HX 11/2015 ventral HYSTEROSCOPY DX 12/17/2014 D&C LAPS SURG CHOLECYSTECTOMY W/CHOLANGIOGRAPHY 05/15/08 Social History Tobacco Use Smoking status: Former Packs/day: 1.00 Years: 15.00 Pack years: 15.00 Types: Cigarettes Quit date: 12/20/1994 Years since quittin.3 Smokeless tobacco: Never Vaping Use Vaping Use: Never used Substance Use Topics Alcohol use: No Drug use: No ACTIVE PROBLEM LIST Anxiety State Essential Hypertension, Benign ABNL GLANDULAR PAP SMEAR CERVIX Irregular Menstrual Cycle Esophageal Reflux Diaphragmatic Hernia Morbid Obesity (Hcc) Obstructive Sleep Apnea Svt (Supraventricular Tachycardia) ([facility]) Benign Hypertensive Heart Disease With Chf, Nyha Class 2 ([facility]) Spondylolisthesis Lumbar Facet Arthropathy Ddd (Degenerative Disc Disease), Lumbar Ddd (Degenerative Disc Disease), Cervical Type 2 Diabetes Mellitus With Peripheral Neuropathy (Hcc) Pmb (Postmenopausal Bleeding) Dysthymia Major depressive disorder, recurrent episode, moderate (HCC) Pain Disorder With Psychological Factors Diffuse Myofascial Pain Syndrome Bilateral Primary Osteoarthritis of Knee Liver Disease Umbilical Hernia Without Obstruction and Without Gangrene Hypercalcemia Primary Hyperparathyroidism (Hcc) Dvt (Deep Venous Thrombosis) (Hcc) Obesity, Class III, BMI >= 40 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 90 capsule 3 pravastatin (PRAVACHOL) 20 mg tablet Take 1 tablet by mouth daily at bedtime. 90 tablet 3 spironolactone (ALDACTONE) 25 mg tablet Take 1 tablet by mouth once daily. 30 tablet 5 furosemide (LASIX) 80 mg tablet Take 1 tablet by mouth once daily. 90 tablet 3 ARIPiprazole (ABILIFY) 5 mg tablet Take 1 tablet by mouth once daily. 30 tablet 11 tiZANidine (ZANAFLEX) 4 mg tablet Take 1 tablet by mouth every 8 hours as needed (muscle spasms). 30 tablet 0 HYDROcodone-acetaminophen (NORCO) 5-325 mg per tablet Take 1 tablet by mouth twice daily as needed for pain for up to 30 days. 60 tablet 0 traZODone (DESYREL) 100 mg tablet Take 1 tablet by mouth daily at bedtime. 90 tablet 1 polyethylene glycol 3350 (MIRALAX, GLYCOLAX) 17 gram/dose powder Take 17 g by mouth once daily. 510g 5 insulin glargine (LANTUS SOLOSTAR U-100 INSULIN) 100 unit/mL (3 mL) Inject 25 Units subcutaneously daily at bedtime. 8 mL 11 gabapentin (NEURONTIN) 300 mg capsule Take 1 capsule by mouth daily at bedtime for 90 days. 30 capsule 2 blood sugar diagnostic (BLOOD GLUCOSE TEST) test strip Test blood sugars up to 4 times daily as directed. Dx: Type 2 DM - Controlled E11.9 Insulin: Yes. Trumetrix brand 360 Strip 3 Blood-Glucose Meter monitoring kit Glucose Meter of Choice - Kit - Dx: Type 2 DM - Controlled E11.9Use twice daily as directed 1 Each 0 Lancets lancets Test blood sugar(s) up to 4 times daily. Dx: Type 2 DM - Controlled E11.9 Insulin: Yes 100 Each 11 Insulin [place], Disposable, (BD ULTRA-FINE MADI PEN NEEDLE) 32 gauge x 5/32 Use one needle for each dose. 2/day. 100 Each 11 methocarbamol (ROBAXIN) 500 mg tablet Take 1 tablet by mouth twice daily. (Patient not taking: Reported on 04/05/2022) 60 tablet 1 ondansetron orally disintegrating (ZOFRAN ODT) 4 mg disintegrating tablet Take 1 tablet by mouth every 8 hours as needed for nausea/vomiting. 20 tablet 0 potassium chloride (K-TAB) 10 mEq tablet Take 1 tablet by mouth once daily. 90 tablet 1 famotidine (PEPCID) 40 mg tablet Take 1 tablet by mouth once daily. 90 tablet 3 metFORMIN ER (GLUCOPHAGE XR) 500 mg 24 hr tablet Take 1 tablet by mouth daily with breakfast. dulaglutide (TRULICITY) 1.5 mg/0.5 mL pen injector Inject 1.5 mg subcutaneously one time a week. Inject once per week. Discard Pen After 2 mL 11 DULoxetine (CYMBALTA) 60 mg capsule Take 1 capsule by mouth once daily. 90 capsule 1 lancets (TRUEPLUS LANCETS) 30 gauge Test four times daily Dx: 250.02 450 Each 3 spironolactone (ALDACTONE) 50 mg tablet Take 1 tablet by mouth once daily. 90 tablet 1 ascorbic acid (VITAMIN C ORAL) Take 1 tablet by mouth once daily. ibuprofen (MOTRIN) 800 mg tablet Take 1 tablet by mouth every 8 hours as needed (FOR PAIN. TAKE WITH FOOD). 30 tablet 0 No current facility-administered medications for this visit. DTAP,TDAP,TD(1 - Tdap) due on 02/08/2007 SHINGRIX VACCINE(1 of 2) Never done MAMMOGRAM due on 11/16/2016 COLORECTAL CANCER SCREENING due on 01/08/2022 DIABETIC FOOT EXAM due on 05/20/2022 DILATED RETINAL EXAM due on 05/23/2022 EXAM: BP 118/74 Pulse 81 Temp 36.6 C (97.8 F) Resp 20 LMP 12/11/2008 SpO2 95% Pleasant morbidly obese woman in no acute distress. Alert and oriented all spheres. Normal affect and cognition. Speech normal. No deficits to learning or comprehension. Skin warm, dry, pink to lips and nailbeds. Normal turgor. Respirations regular and unlabored. Mild cough, no retractions. HEENT: NCAT. No scleral icterus or conjunctival injection. TM's clear. Nose and oropharynx free from injection or lesion. Oral membranes moist and pink. No cervical lymph nodes. Thyroid non-tender, no masses, or enlargement. Carotids pulses 2+/4+ without bruits. No JVD with HOB at 30 degrees. Chest is normal shape. Lungs are clear to all bailey with good air exchange through out. HRRR without murmur or gallop. No lifts, heaves, or rubs. Extrem: no clubbing or cyanosis. Edema: obese, tight but not pitting. Extremities are warm and pinkwith prompt capillary refill. ASSESSMENT/PLAN: 1. SVT (supraventricular tachycardia) (HCC) - ICD9: 427.89, ICD10: I47.1 (primary diagnosis) Stable and controlled on current medications: continue 2. Benign hypertensive heart disease with CHF, NYHA class 2 (HCC) - ICD9: 402.11, 428.0, ICD10: I11.0 - good control - Continue current medication(s) - Recommended regular aerobic exercise. - Recommend home blood pressure monitoring, to bring results in on next visit - Goal of BP <130/80 3. Chronic respiratory failure with hypoxia (HCC) - ICD9: 518.83, 799.02, ICD10: J96.11 Stable, 4. Obstructive sleep apnea - ICD9: 327.23, ICD10: G47.33 Off BiPap due to issues reported with safety on her brand. Has not been able to get new machine: she will call Dr. Myles's office for help. 5. Morbid obesity (HCC) - ICD9: 278.01, ICD10: E66.01 Stable - Behavioral intervention and - Pharmacological intervention 6. Type 2 diabetes mellitus with peripheral neuropathy (HCC) - ICD9: 250.60, 357.2, ICD10: E11.42 - Controlled - Continue current medications - Start dulaglutide (Trulicity) 3mg - DULAGLUTIDE 3 MG/0.5 ML SUBCUTANEOUS PEN INJECTOR - HGB A1C - COMP METABOLIC PANEL 7. Primary hyperparathyroidism (HCC) - ICD9: 252.01, ICD10: E21.0 Stable, continue supplement - VITAMIN D 25 HYDROXY - PTH INTACT BLD - COMP METABOLIC PANEL 8. Dysthymia - ICD9: 300.4, ICD10: F34.1 Wean to 2mg a day x 1 wek and if feeling well, every other day for a week and then off. Recheck 3 months or as needed - ARIPIPRAZOLE 2 MG TABLET 9. Major depressive disorder, recurrent episode, moderate (HCC) - ICD9: 296.32, ICD10: F33.1 Stable, as above - ARIPIPRAZOLE 2 MG TABLET - COMP METABOLIC PANEL 10. Pain disorder with psychological factors - ICD9: 307.80, ICD10: F45.42 stable 11. Diaphragmatic hernia without obstruction and without gangrene - ICD9: 553.3, ICD10: K44.9 12. Gastroesophageal reflux disease without esophagitis - ICD9: 530.81, ICD10: K21.9 - Discussed lifestyle modifications including losing weight, limiting caffeine, no meals three hours before sleep, and head of bed elevation - COMP METABOLIC PANEL Good control: continue current medication 13. Diffuse myofascial pain syndrome - ICD9: 729.1, ICD10: M79.18 14. Lumbar facet arthropathy - ICD9: 721.3, ICD10: M47.816 15. DDD (degenerative disc disease), cervical - ICD9: 722.4, ICD10: M50.30 16. Spondylolisthesis, unspecified spinal region - ICD9: 756.12, ICD10: M43.10 Stable, continue current medications. Follows with Daniel Casillas, pain management. 17. Acute upper respiratory infection - ICD9: 465.9, ICD10: J06.9 - Discussed viral etiology and rationale for treatment. - Symptomatic treatment with prn analgesia - Supportive care with fluids and rest - COVID WITH FLUA+B, ROUTINE - ALBUTEROL SULFATE HFA 90 MCG/ACTUATION AEROSOL INHALER Sanjay Abbasi PA-C documented in this encounterPrem[facility]03-06-2023 Miscellaneous Notes* Telephone Encounter - Narda Carusoedith - 04/24/2022 8:57 AM EST Please send medication to [facility] in [place]. * Telephone Encounter - Narda Fournier - 04/24/2022 8:46 AM EST Patient has been identified by name and date of : Yes Requested Prescriptions Pending Prescriptions Disp Refills pravastatin (PRAVACHOL) 20 mg tablet 90 tablet 3 Sig: Take 1 tablet by mouth daily at bedtime. spironolactone (ALDACTONE) 25 mg tablet 30 tablet 5 Sig: Take 1 tablet by mouth once daily. furosemide (LASIX) 80 mg tablet Sig: Take 1 tablet by mouth once daily. Patient also requesting Vitamin D. RX INSTRUCTIONS: Patient aware RX will be sent to pharmacy. No need to notify patient. Narda Fournier documented in this encounterPremier Health [facility]03-03-2023 Miscellaneous Notes* Telephone Encounter - Brittany Valencia LPN - 04/21/2022 9:20 AM EST Spoke to patient and verbalizes understanding. * Telephone Encounter - Nehemiah Herbert MD - 04/20/2022 5:11 PM EST Decrease abilify to 5 mg a day. Follow up in a month * Telephone Encounter - Brittany Valencia LPN - 04/20/2022 5:08 PM EST Patient is agreeable to plan. * Telephone Encounter - Nehemiah Herbert MD - 04/20/2022 4:57 PM EST Neurology suggested we taper her abilify to see if it helps her tremor. Is she willing? documented in this encounterPremier Health [facility]03-01-2023 Miscellaneous Notes* Telephone Encounter - Rena Tran MA - 04/19/2022 1:51 PM EST MEDHAT 03/24/22 and NOV 07/27/2022 Rena Tran MA * Telephone Encounter - Keisha Turcios - 04/19/2022 1:31 PM EST Patient has been identified by name and date of : Yes Requested Prescriptions Pending Prescriptions Disp Refills tiZANidine (ZANAFLEX) 4 mg tablet 30 tablet 0 Sig: Take 1 tablet by mouth every 8 hours as needed (muscle spasms). RX INSTRUCTIONS: Patient aware RX will be sent to pharmacy. No need to notify patient. Keisha Turcios documented in this encounterPremier Health [facility]02-13-2023 Miscellaneous Notes* Telephone Encounter - Leida Nava Ma - 04/03/2022 2:32 PM EST Last office visit: 03/24/22 F/u scheduled: 07/27/22 Last refilled on: [place] #[id number] on 02/28/22 Leida Nava Ma * Telephone Encounter - Dilia Helton Pss - 04/03/2022 9:35 AM EST Pharmacy verified in Epic Patient has been identified by name and date of : Yes Patient aware RX will be sent to pharmacy. No need to notify patient. Patient phones for refill(s): Requested Prescriptions Pending Prescriptions Disp Refills HYDROcodone-acetaminophen (NORCO) 5-325 mg per tablet 60 tablet 0 Sig: Take 1 tablet by mouth twice daily as needed for pain for up to 3 days. traZODone (DESYREL) 100 mg tablet 90 tablet 1 Sig: Take 1 tablet by mouth daily at bedtime. Date of last office visit : 03/24/2022 Date of next office visit : 07/27/2022 Last 2 Encounter Wt Readings: Date: Wt: 02/15/2022 176.9 kg (390 lb) 11/17/2021 172.8 kg (381 lb) Please advise. Dilia Helton Pss documented in this encounterPremier Health [facility] Center02-03-2023 History of Present illness Narrative* Nehemiah Herbert MD - 03/24/2022 8:47 PM EST Patient seen in office while computer was unavailable. See down time forms for documentation of visit which are scanned in. It was offered for patient to reschedule to a visit when records were available. They elected to still be seen and are aware of the limitations of the visit given my inability to view their previous records. documented in this encounterPremier Health [facility]01-30-2023 Miscellaneous Notes* Telephone Encounter - Jocelin Roberts - 03/20/2022 8:44 AM EST Wilton Alan Khan is calling Nehemiah Herbert MD today to request a RX that does not appear on currentmedication list: Acetaminophen 650 mg caplet taking every 6 hours as needed [facility]acy is [facility] in [place] Patient has been identified by name and birthdate. Duration of symptoms: N/A Person calling: self Call patient at: at home [phone] (home) [phone] (cell) Was an appointment scheduled: No, patient has in person office visit this week on 03/24/2022 Closing statement: Results or non-symptom based questions: Thank you for calling [facility], your call will be returned within the next business day. Jocelin Roberts documented in this encounterPremier Health [facility] Center01-19-2023 Miscellaneous Notes* Telephone Encounter - Brittany Valencia LPN - 03/09/2022 1:08 PM EST Spoke with patient and she verbalizes understanding. * Telephone Encounter - Nehemiah Herbert MD - 03/09/2022 11:33 AM EST Reviewed er records. That is not an antibiotic reaction. She actually had inner ear signs on exam. That is not a med reaction. Stopping meds could result in her blood born infection returning and kill her. * Telephone Encounter - Louie Wade Ma - 03/09/2022 10:19 AM EST On desk * Telephone Encounter - Nehemiah Herbert MD - 03/09/2022 9:36 AM EST That is not a normal side effect and stopping it can lead to significant issues. Can we pull the recent er report for me to review * Telephone Encounter - Katherine Ramirez LPN - 03/09/2022 9:17 AM EST Pt calling with an update. She is taking Levaquin for infection. Pt having the follow symptoms after taking the medication and then the problems start 1 hr after it is in her. She is having severe dizziness, nausea, severe weakness. Pt took one last night and the symptoms are still with her. Pt states she can not take this medication. Pt was treated at the hospital for vertigo and she does not feel this is her problem. She thinks it is the medicaiton. Please advise. Pt not able to come in for apt today because she has to get transportation and has to give 2 days notice. She has an apt tomorrow at 9:20 am. Please advise pt on medication. Pharmacy update. Pt takes the medication at night. Katherine JUDGE documented in this encounterPremier Health [facility] Center01-17-[address] Crespo [facility] March 07, 2022 7:15pm Note Date/Time March 07, 2022 5 :27pm [facility] Medical Records Department [address] [place] [address] Emergency Department Summary 03/07/22 MR#: [id number] Acct: [id number] Name: WILTON KHAN V Rep #:[id number] : [id number] 62 From: Mike Crespo MD PCP: Dr. Nehemiah Herbert MD Status:REG E R Location: ED HPI History of Present Illness Chief Complaint: General Illness Detail of Chief Complaint: Generalized weakness, legs shaking, sweating and dizziness Informant: patient Onset/Context/Timing Onset: Today Context: Sudden Onset Timing: Intermittent Quality: Symptoms are provoked with standing position and with change in eye positio Location: Patient is presently at home. Current Severity: Patient states she does not feel well. Maximum Severity: Moderate Worsened by: Upright position and change in head position Relieved by: Supine in closing her eyes Associated Symptoms Associated Symptoms: Nausea, diaphoresis, difficulty walking because of weakness Narrative Narrative: Patient is a 62-year-old woman who was admitted last week and discharged on March 05 for cellulitis. She was discharged on levofloxacin. She states she has not had a fever in 2 days. She denies headache. She denies double vision, blurred vision or loss of vision. She denies ringing or ears or decreased hearing. She denies rhinorrhea, congestion, postnasal drainage or sore throat. She denies cough, dyspnea or dyspnea on exertion. She denies chest discomfort. She denies orthopnea or PND. She does have history of obstructive sleep apnea Pily and is compliant with her BiPAP. She does report nausea without abdominal pain, vomiting or diarrhea. She denies dysuria, frequency, urgency or hematuria. She has not looked at the rash or had anyone to look at the rash to see if there is improvement or worsening. She states there was no open wound. She contacted her primary care physician who recommended shecome to the emergency department for evaluation. Prior similar symptoms: No Recent Illness/Hospital[facility]: [facility] Medical History Anxiety and depression Chronic back pain COPD (chronic obstructive pulmonary disease) COVID-19 Diabetes mellitus, type II Esophageal reflux Essential hypertension Exertional dyspnea Heart failure History of DVT (deep vein thrombosis) Hyperparathyroidism Immobility Lumbosacral neuritis Mixed hyperlipidemia Morbid obesity JEREMÍAS treated with BiPAP Peripheral neuropathy Pulmonary hypertension Sepsis SVT (supraventricular tachycardia) Vitamin D deficiency Home Medications duloxetine 60 mg capsule,delayed release 60 mg PO DAILY depression 12/02/14 [History Last Taken 03/02/22] aripiprazole 10 mg tablet 10 mg PO QHS Depression 10/21/17 [History Last Taken 03/01/22] pravastatin 20 mg tablet 20 mg PO QHS cholesterol 04/09/19 [History Last Taken 03/01/22] famotidine 40 mg tablet 40 mg PO DAILY stomach 11/08/19 [History Last Taken 03/02/22] insulin glargine 100 unit/mL (3 mL) subcutaneous pen 25 unit SQ DAILY blood sugar 11/08/19 [History Last Taken 03/02/22] hydrocodone-acetaminophen 5-325mg 5mg-325mg 1 tab PO BID PRN Pain 06/29/20 [History Last Taken 03/01/22] metformin 500 mg tablet 500 mg PO DAILY diabetes 06/29/20 [History Last Taken 03/01/22] potassium chloride 10 mEq capsule,extended release 10 meq PO DAILY supplement 06/29/20 [History Last Taken 03/02/22] acetaminophen 650 mg tablet,extended release 650 mg PO TID PRN Pain 09/14/20 [History Last Taken 03/02/22] spironolactone 50 mg tablet 50 mg PO DAILY fluid 09/14/20 [History Last Taken 03/02/22] trazodone 100 mg tablet 100 mg PO QHS SLEEP 09/14/20 [History Last Taken 03/01/22] cholecalciferol (vitamin D3) 125 mcg (5,000 unit) tablet (Vitamin D3) 125 mcg PODAILY 03/02/22 [History Last Taken 03/02/22] dulaglutide 1.5 mg/0.5 mL subcutaneous pen injector (Trulicity) 1.5 mg subcut FRDM 03/02/22 [History Last Taken 02/24/22] furosemide 80 mg tablet 80 mg PO DAILY FLUID 03/02/22 [History Last Taken 03/02/22] gabapentin 300 mg capsule 300 mg PO QHS PAIN 03/02/22 [History Last Taken 03/01/22] ibuprofen 200 mg tablet 800 mg PO Q8H PRN Fever 03/02/22 [History Last Taken 03/02/22 07:45] methocarbamol 500 mg tablet 500 mg PO BID 03/02/22 [History Last Taken 03/01/22] levofloxacin 750 mg tablet 750 mg PO DAILY #10 tabs 03/04/22 [Rx Last Taken Unknown] Allergy/AdvReac Type Severity Reaction Status Date / Time vancomycin Allergy Rash Verified 03/02/22 12:28 atorvastatin AdvReac Severe myalgias Verified 03/02/22 12:28 amlodipine AdvReac Unknown Verified 03/02/22 12:28 atenolol AdvReac Unknown Verified 03/02/22 12:28 bupropion HCl AdvReac Unknown Verified 03/02/22 12:28 [From Wellbutrin] fluoxetine HCl [From Prozac] AdvReac Unknown Verified 03/02/22 12:28 meloxicam [From Mobic] AdvReac Unknown Verified 03/02/22 12:28 metoprolol AdvReac Unknown Verified 03/02/22 12:28 pregabalin [From Lyrica] AdvReac Unknown Verified 03/02/22 12:28 quetiapine fumarate AdvReac Unknown Verified 03/02/22 12:28 [From Seroquel] quinapril HCl [From Accupril] AdvReac Unknown Verified 03/02/22 12:28 risperidone AdvReac Unknown Verified 03/02/22 12:28 rofecoxib [From Vioxx] AdvReac Unknown Verified 03/02/22 12:28 sitagliptin phosphate AdvReac Unknown Verified 03/02/22 12:28 [From Januvia] venlafaxine HCl AdvReac Unknown Verified 03/02/22 12:28 [From Effexor] Family History Mother Hypertension CVA (cerebral vascular accident) Diabetes Heart disease Father Hypertension COPD (chronic obstructive pulmonary disease) Sister Hypertension Sister Hypertension Diabetes Brother Hypertension Diabetes Brother Hypertension Diabetes Brother Hypertension CAD (coronary artery disease) History of coronary artery bypass surgery, Onset Age: 48 Diabetes Surgical History History of hernia repair History of laparoscopic cholecystectomy History of left heart catheterization (LHC) (~05/23/12) Social History household members: none Smoking Status: Former smoker alcohol intake: never substance use type: does not use ROS ROS ED Constitutional Constitutional ED: Reports sweats; Denies chills, fever(s), subjective or weightloss Eyes Eyes: Denies blurry vision, change in vision or diplopia ENT ENT ED: Denies ear pain, rhinorrhea or sore throat Cardiovascular Cardiovascular: Denies chest pain, orthopnea, palpitations, paroxysmal nocturnaldyspnea or racing heartbeat Respiratory/Chest Respiratory/Chest: Denies cough, dyspnea, dyspnea on exertion, orthopnea or paroxysmal nocturnal dyspnea Gastrointestinal Gastrointestinal: Reports nausea; Denies abdominal pain, diarrhea, melena or vomiting Genitourinary Genitourinary ED: Denies dysuria, hematuria or urinary frequency Musculoskeletal Musculoskeletal: Denies arthralgias, back pain, myalgias or neck pain Integumentary Reports other Details: Discharged from the hospital for cellulitis right buttocks area. ; Denies Abrasions or rash Neurologic Neurologic: Reports weakness; Denies headache(s) or paresthesias Psychiatric Psychiatric: Reports anxiety Endocrine Endocrinology: Denies polydipsia or polyuria Hematologic/Lymphatic Hematologic/Lymphatic: Reports systems reviewed and no addt'l complaints, exceptas documented EXAM Physical Exam Const Vital Signs: 03/07/22 16:49 03/07/22 18:29 Temperature 98.2 F Temperature Source Core Pulse Rate 89 Respiratory Rate 18 Blood Pressure 118/62 142/81 H Blood Pressure Mean 80 101 Pulse Ox 94 99 Oxygen Delivery Method Room Air Room Air Positive well nourished, well developed and obese General Appearance ED: well developed and NAD; Negative for cyanotic, diaphoretic or pallor Nutritional Appearance: obese HEENT Reports moist mucous membranes HEENT Narrative: Head is atraumatic normocephalic. Ears normal. Nares patent. TMs are normal. Uvula midline. No deviation tongue with protrusion. There is no erythema or exudate of the posterior pharynx. Eyes PERRL and EOMs intact bilaterally Eyes Narrative: There is no subconjunctival hemorrhage. There is no APD. There is no papilledema. There is no photophobia. There is no nystagmus with central gaze or lateral gaze. When I had patient follow my finger she complained of dizziness. No nystagmus was appreciated. General Eye ED: Negative for pale conjunctiva or scleral icterus Neck no lymphadenopathy, supple and no JVD Neck Narrative: Neck is palp. There is no meningeal findings. Chest Wall palpation of chest normal Resp normal respiratory effort and clear to auscultation bilaterally Cardio regular rate, regular rhythm, S1 normal heart sound, S2 normal heart sound and no murmurs GI normal to inspection, nondistended, normoactive bowel sounds, non-tender, non-distended and no masses; Negative for hepatosplenomegaly GI Narrative: Abdominal exam is limited due to body habitus Back/Spine no CVA tenderness Back/Spine Narrative: There is outline of area of cellulitis. The redness has decreased significantly. There is still some redness noted superior to the right buttocksnear the lumbar sacral curvature of the back. There is no breakdown of skin. There is no fluctuance. Cervical Spine: Negative for cervical spine tenderness Thoracic Spine / Upper Back: Negative for thoracic spinal tenderness Lumbar Spine / Lower Back: Negative for lumbar spinal tenderness Extremity Negative for normal to inspection Extremity Narrative: Due to body habitus unable to appreciate palpable distal pulses. General Extremety ED: Yes edema; Negative for tenderness General Extremity: edema Neuro oriented x3, CN's II-XII intact bilaterally and no sensory deficits noted Neuro Narrative: There is no dysmetria. Running patient's head to the left or right causes dizziness. No nystagmus was appreciated. When her head was stationary there was no dizziness. Difficult to perform Hanover-Hallpike maneuver because of body habitus. Unable to perform an Joe maneuver because patient cannot even turn in the examination bed without bumping into a rail. The eye askew test was negative. The hint test was negative. There is no Babinski sign noted right orleft and there is no clonus. Sensorium / Orientation: alert Motor Exam: strength 5/5 throughout Psych Mood & Affect: depressed Skin No no rashes or lesions noted, no wounds and skin turgor normal Skin Narrative: There is an area erythemic consistent with resolving cellulitis. General Skin Exam: Negative for jaundice or pallor MDM MDM MDM Narrative Medical decision making narrative: We will review recent admission. We will compare laboratory studies from this evening to most recent. Patient has benign paroxysmal positional vertigo. Because of body habitus unable to perform Joe maneuver. For this reason patient was treated with Antivert. Reluctant to treat with Valium which is considered the drug of choice because of her reported problems with standing andunsteadiness. CBC was obtained to assess white count differential. Because of her history of diabetes basic metabolic panel was obtained to assess glucose, CO2 anion gap and renal function. Case management was consulted. Micaela, the [facility] social work msw, informed me that patient declined placement in [facility]. She will see patient and talk to the patient regarding home health versus [facility] placement. Discharge note by Dr. Adolfo Morgan was reviewed. Patient's discharge diagnosis was influenza a, cellulitis of the right and left lower extremity. Patient had sepsis secondary to the cellulitis involving the trunk and thighs with streptococcal species. Blood cultures were negative. The MR rising screen cameback positive. Patient was started on piperacillin and as well as vancomycin. Patient also had evidence of acute cystitis with E. coli. Patient has class IIIobesity with BMI of 79.. Review of records indicates patient has chronic congestive heart failure. White count on the 14th was 4.7. H&H was 11.6 and 35.8. Hemoglobin is slightly elevated in comparison today. Basic metabolic panel was remarkable for glucose of 199 with a normal CO2 and anion gap. Patient was made aware of laboratory results. Patient was made aware that she does not meet criteria for repeat admission to the hospital. She declined placement and declined home health. She states she would go home. She was discharged with prescription for Antivert. As noted case management did see herregarding home health and placement. Lab Data Attestation: I reviewed the patient's lab results. Lab results narrative: CBC is unremarkable. Differential is slightly elevated. There is no bandemia. Basic metabolic panel is markable for an elevated glucose of 187. CO2 anion gapare normal. GFR is 85. Lactate is normal. Patient was made aware of her laboratory results. Labs: Laboratory Results - last 24 hr 03/07/22 03/07/22 03/07/22 17:15 17:15 17:15 WBC 6.2 RBC 4.30 Hgb 12.6 Hct 37.7 MCV 87.7 MCH 29.3 MCHC 33.4 RDW Std Deviation 40.9 RDW Coeff of Kaity 12.9 Plt Count 251 MPV 10.1 Immature Gran % (Auto) 0.200 Neut % (Auto) 70.3 H Lymph % (Auto) 19.7 [place] % (Auto) 7.2 Eos % (Auto) 2.1 Baso % (Auto) 0.5 Absolute Neuts (auto) 4.4 Absolute Lymphs (auto) 1.23 Nucleated RBC % 0 Sodium 139 Potassium 3.7 Chloride 102 Carbon Dioxide 31.0 Anion Gap 6 BUN 19 H Creatinine 0.74 Estim Creat Clear Calc 223.74 Est GFR (MDRD) Af Amer 103 Est GFR (MDRD) Non-Af 85 BUN/Creatinine Ratio 25.8 H Glucose 187 H Lactic Acid 1.5 Calcium 9.3 Rhythm Strip Rhythm Strip: Sinus Rhythm Rate: 84 Ectopy: None Discharge Plan Triage Chief Complaint: General Illness ED Provider: Mike Crespo Dx/Rx/DC Orders Clinical Impression: Benign paroxysmal positional vertigo, Generalized weakness, Morbid obesity withBMI of 70 and over, adult, Hyperglycemia due to type 2 diabetes mellitus, Cellulitis Instructions: ED BPV Vertigo, ED Weakness (Uncertain Cause) Prescriptions: No Action pravastatin 20 mg tablet 20 mg PO QHS duloxetine 60 MG capsule,delayed release(DR/EC) 60 mg PO DAILY aripiprazole 10 MG tablet 10 mg PO QHS famotidine 40 MG tablet 40 mg PO DAILY insulin glargine 100 UNIT/ML insulin pen 25 unit SQ DAILY metformin 500 mg Tablet 500 mg PO DAILY potassium chloride 10 mEq Capsule, Extended Release 10 meq PO DAILY hydrocodone-acetaminophen 5-325 mg Tablet 1 tab PO BID PRN (Reason: Pain) acetaminophen 650 mg tablet extended release 650 mg PO TID PRN (Reason: Pain) Label Comments: take 2 tablets by mouth three times a day if needed trazodone 100 mg tablet 100 mg PO QHS MDD insomnia Label Comments: take 1 tablet by mouth every evening spironolactone 50 mg tablet 50 mg PO DAILY Label Comments: take 1 tablet by mouth once daily methocarbamol 500 mg tablet 500 mg PO BID Label Comments: take 1 tablet by mouth twice a day cholecalciferol (vitamin D3) [Vitamin D3] 125 mcg (5,000 unit) Tablet 125 mcg PO DAILY Trulicity 1.5 mg/0.5 mL pen injector 1.5 mg SUBCUT FR Label Comments: INJECT CONTENTS OF 1 PEN UNDER THE SKIN ONCE A WEEK. THROW AWAY PEN AFTER USE. Rx Instructions: LAST DOSE 02/24 ibuprofen 200 mg Tablet 800 mg PO Q8H PRN (Reason: Fever) gabapentin 300 mg capsule 300 mg PO QHS Label Comments: take 1 capsule by mouth at bedtime furosemide 80 mg tablet 80 mg PO DAILY Label Comments: take 1 tablet by mouth once daily levofloxacin 750 mg tablet 750 mg PO DAILY Qty: 10 0RF Primary Care Provider: Neehmiah Herbert Referrals: Nehemiah Herbert MD [Primary Care Provider] - 3-5 Days Disposition Disposition: Home, Self Care What to do if you have Problems For any increased pain, shortness of breath, bleeding, nausea or vomiting, chestpain, or any unexpected problems, contact your Primary Care Provider. Call [facility] ([phone]) or report to the closest Emergency Room. Call 911 if necessary. 03/07/221914 <Electronically signed by Mike Crespo MD> Cosigner Signature (if applicable): CC: Dr. Nehemiah Herbert MD ~ Signed [facility] Work Phone: [phone] 462-793701-17-2023 Miscellaneous Notes* Telephone Encounter - Estefani Bell LPN - 03/07/2022 3:00 PM EST Pt notified of 's message. Estefani Bell LPN * Telephone Encounter - Nehemiah Herbert MD - 03/07/2022 2:43 PM EST Agree. If bad enough, that is unlikely to be antibiotic. Given that she was septic-bacteria in the blood, urine infection and skin infection, I would worry about infection. Really needs looked at given her symptoms. * Telephone Encounter - Sanjay Rondon RN - 03/07/2022 2:00 PM EST Protocol recommends ER Now or pcp triage. Patient states she does not want to go to ER, she thinks she can manage this at home, but she will go to ER if condition worsens. Patient states she will go to ER if pcp really thinks she should. Asking pcp to advise and phone patient with reply. Reason for Disposition [1] Dizziness (vertigo) present now AND [2] age > 59 (Exception: prior physician evaluation for this AND no different/worse than usual) Answer Assessment - Initial Assessment Questions 1. DESCRIPTION: Reports dizziness is her worst symtpom. Feels dizzy and if moves head the room starts spinning. Reports she is feeling a lot better than when in the hospital ( through Sunday).Dizziness started Sunday, and is the same today as it was then. Reports she has been constantly dizzy since Sunday, but worse with movement. When sitting it is tolerable. Able to get around home when needed. Reports she had this dizziness the whole time she was in the hospital and they had her sit at side of bed before she stood up. 2. VERTIGO: Room spins when sitting or walking. Worse with movement. 3. LIGHTHEADED: Feels weak when stands up, whole body is shaky. Temp 98.1. 4. SEVERITY: Moderate. Has not fallen yet, but feels like she will fall at times. When that happenshold on to rolator or counter. 5. ONSET: Dizziness started on Sunday. Started after took levaquin. 6. AGGRAVATING FACTORS: Standing or movement. 7. CAUSE: States she is getting plenty of fluids. Thinks caused by levaquin, but could be her infections. Does take spironalactone and lasix. Reports she urinates a lot. Reports she has been continent. Reports BP was good in hospital and BS are good- slightly elevated. 8. RECURRENT SYMPTOM: Has had dizziness before due to illness but not this bad. 9. OTHER SYMPTOMS: Weakness. A little nausea. Reports she is eating well, and drinking plenty. No problems with urination. No problems with moving bowels. 10. :No Protocols used: Dizziness - [id number] documented in this encounterPremier Health [facility]01-17-2023 Miscellaneous Notes* Telephone Encounter - Sanjay Rondon RN - 03/07/2022 2:26 PM EST See nurse triage. * Telephone Encounter - Nehemiah Herbert MD - 03/07/2022 12:52 PM EST She was also treated for influenza and had positive blood cultures as well which may well cause thesymptoms she is having. Can we triage this as this might not be an antibiotic reaction. Also I cannot see her culture results in our info and the medication is specifically directed at all of her cultures which will make it very difficult to change for an unlikely antibiotic reaction. Can we pull all the culture results from her hospitalization for me to see as well. They are not inthe info in her discharge summary * Telephone Encounter - Louie Wade Ma - 03/07/2022 10:34 AM EST Placed on desk * Telephone Encounter - Nehemiah Herbert MD - 03/07/2022 10:00 AM EST Can we pull her records from [facility] for me to review on arrival this afternoon to see what I can do * Telephone Encounter - Sanjay Rondon RN - 03/07/2022 9:26 AM EST Patient reports she took levaquin 750 mg on Sunday. The rest of the day felt shaky, weak in legs, and dizzy. Same thing happened when she took the levaquin on Sunday. Took the levaquin this morning and same effects. Reports levaquin was prescribed for cellulitis, which is gone, UTI- no s/s today, and staph infection in wounds behind legs. Unable to see these wounds, but still has pain and swelling in that area. Patient believes the shakiness, weakness- legs feel like rubber, and dizziness is from the levaquin. [facility] [place] Please advise patient. documented in this encounterPremier Health [facility] Center01-16-2023 History of Present illness Narrative* Nehemiah Herbert MD - 03/06/2022 4:14 PM EST agree * Brittany De Souzacatherine PALACIO - 03/06/2022 2:39 PM EST TRANSITION CARE MANAGEMENT (TCM) INITIAL CONTACT [employer] Out[facility] Provider Action/FYI: No fever since home. [facility] Upon calling patient she had been out for walk inhallway. When returning to apartment feels weak and shaking. Glucose 230. No fever or diarrhea. Is drinking fluids. She had lunch today. This was at approximately 2:30pm. Patient was going to rest. Called back to check on patient at 3:45pm and still not feeling well. She is monitoring her symptoms.Still no fever. Feels that the cellulitis area in her hip remains stable. She is going to wait a little bit longer but if not feeling better soon going to go back to hospital. Advised patient this isthe right thing today especially if develops a fever. Patient is agreeable. Initial contact with patient post discharge, spoke to patient. Patient identified by name and . TRANSITION CARE MANAGEMENT INITIAL OUTREACH DOCUMENTATION: No flowsheet data found. SUMMARY: -Pt discharged from [facility] on 03/04/22. -Admitted for: Influenza A, cellulitis, UTI Do you have a hospital follow up appointment with your PCP? Appointment on 03/10/[address] Herbert. Yes. Remind patient of appointment date, time, and location. If not within 14 calendar days of discharge - please reschedule accordingly. MEDICATIONS: Many patients have questions or concerns about their medications once they are home. Were you prescribed any new medications? If yes, what are those medications? Levaquin 750mg x 10 days Were you told to hold any medications? No Were any of your medications discontinued? No Do you have any questions about getting or taking your medications? No Your discharge instructions/After visit Summary (AVS) are important in guiding you through the recovery process. Is there anything I might help you understand? No Do you have all the necessary equipment and supplies at home? Yes Medical records from recent hospitalization: Placed for provider to review documented in this encounterPremier Health [facility]01-16-2023 Miscellaneous Notes* Telephone Encounter - Aspen Turcios - 03/06/2022 9:00 AM EST Patient has been identified by name and date of : Yes Last office visit in this department: 02/15/2022 RX INSTRUCTIONS: Patient aware RX will be sent to pharmacy. No need to notify patient. Patient phones requesting refills as follows: Requested Prescriptions No prescriptions requested or ordered in this encounter Please review and advise. Aspen Turcios documented in this encounterPremier Health [facility] Center01-12-2023 Miscellaneous Notes* Telephone Encounter - Emily Garcia RN - 03/02/2022 11:06 AM EST Call placed to patient and provider message reviewed. Patient reports that her temperature is now 100.0 but that is after taking tylenol and Motrin. Explained to patient if she weren't taking medication that temperature would go back up and that was still need for in-person evaluation. Patient reluctant but says she will call an ambulance and go to ER. Emily Garcia RN * Telephone Encounter - Brittany Valencia LPN - 03/02/2022 9:31 AM EST Phone goes straight to voicemail not set up. Will need to call back. * Telephone Encounter - Nehemiah Herbert MD - 03/02/2022 8:45 AM EST If fever up to 102, needs seen. If nothing else, can be evaluated in ER since temp is 102-can get ems to transport * Telephone Encounter - Emily Garcia RN - 03/02/2022 8:18 AM EST Patient calls to report possible cellulitis to right hip. Nurse triage completed. Protocol recommends see provider within 4 hours or pcp triage. Patient reports that she is not able to come in for a visit d/t transportation. Care advice reviewed. Patient verbalizes understanding. Reason for Disposition [1] Red area or streak AND [2] fever Answer Assessment - Initial Assessment Questions 1. APPEARANCE of RASH: Patient reports overnight she developed a large red area to right hip. She reports the area is bigger than a baseball not raised and warm to touch. No open areas. No drainage. 2. LOCATION: Right hip 3. NUMBER: 1 4. SIZE: bigger than a baseball 5. ONSET: Overnight 6. ITCHING: None 7. PAIN: None 8. OTHER SYMPTOMS: 102 tympanic this morning. Patient started tylenol and is going to alternate with ibuprofen. Protocols used: Rash or Redness - [id number] documented in this encounterPremier Health [facility] Center01-10-2023 Miscellaneous Notes* Telephone Encounter - Narda Fournier - 02/28/2022 8:28 AM EST Patient has been identified by name and date of : Yes Requested Prescriptions Pending Prescriptions Disp Refills HYDROcodone-acetaminophen (NORCO) 5-325 mg per tablet 60 tablet 0 Sig: Take 1 tablet by mouth twice daily as needed for pain for up to 3 days. RX INSTRUCTIONS: Patient aware RX will be sent to pharmacy. No need to notify patient. Narda Fournier documented in this encounterPremier Health At[facility] Center12-29-2022 Miscellaneous Notes* Telephone Encounter - Margarette Barahona - 02/16/2022 10:47 AM EST Patient's home health aide will be coming to the lab desk to hand picker a hat in order for the patientto produce a urine sample. documented in this encounterPremier Health Atrium Medical [facility] Miscellaneous Notes* Telephone Encounter - Nehemiah Herbert MD - 02/16/2022 8:38 AM EST Calcium is now normal. Her sugars are up. Increase lantus to 28 units a day and call sugars in two weeks. Her urine still needs done if we are to continue to prescribe her pain meds. documented in this encounterPremier [facility]12-28-2022 History of Present illness Narrative* Nehemiah Herbert MD - 02/15/2022 11:28 AM EST Patient presents with: F/U 3 Month HPI: Patient presents today for office visit for follow up. Has completed wound care. Overall doing well. Swelling is doing well. No chest pain or shortness of breath. Psych: doing well. No issues with meds. Sugars have been up slightly up. Checking QID. No issues with cholesterol meds. Has had tremors for years. No issues with the mouth. No family tremor. Has been there before [facility]. Had seen neurology previously for it and was on primidone. Oarrs done. Remains on narcotics. Has seen pain management in the past for same. Reviewed risks and benefits. Feels it is helping her to function. See previous: DM: Reports overall feeling well. Medication side effects: No. Home sugar check frequency/results: QID Hypoglycemic spells: No. Watching diet: Yes. Unexpected weight loss: No. Polyuria, polydipsia: No. Vision Changes: No. Foot lesions or numbness or pain: No. Saw wound care beginning of September. Healing well. No pain. Wounds will periodically break open. Chronic pain: Pain in B/L feet and legs would like to discuss restarting Gabapentin. Would like Rx for Ibuprofen 800 mg, currently taking OTC. Uses meds prn. Aware of risks and benefits. Discussed avoiding overuse of nsads. Did much better on donald Emotionally is doing well. Denies any current issues. Only taking her lasix once a day. Was urinating too much. No increased shortness of breath or edema. See last ov: Still seeing wound care for her thigh wounds. Healing well. No pain. Underwent parathyroidectomy. Surgery went well. Feels well. Surgical site has closed. Chronic pain:oarrs was checked. Has seen pain management previously for the same. Aware of risks and benefits of meds. No misuse or abuse. Feels it helps her to function and perform her ADL's HLD:no myalgias. CARDIO: no chest pain or shortness of breath. No worsening edema. Sugars have been higher recently. She is trying to watch her diet. MEDICATIONS: Current Outpatient Medications Medication Sig insulin glargine (LANTUS SOLOSTAR U-100 INSULIN) 100 unit/mL (3 mL) Inject 25 Units subcutaneously daily at bedtime. Insulin Maljamar, Disposable, (BD ULTRA-FINE MADI PEN NEEDLE) 32 gauge x Use one needle for each dose. 2/day. methocarbamol (ROBAXIN) 500 mg tablet Take 1 tablet by mouth twice daily. HYDROcodone-acetaminophen (NORCO) 5-325 mg per tablet Take 1 tablet by mouth twice daily as needed for pain for up to 3 days. ondansetron orally disintegrating (ZOFRAN ODT) 4 mg disintegrating tablet Take 1 tablet by mouth every 8 hours as needed for nausea/vomiting. ARIPiprazole (ABILIFY) 10 mg tablet Take 1 tablet by mouth once daily. potassium chloride (K-TAB) 10 mEq tablet Take 1 tablet by mouth once daily. famotidine (PEPCID) 40 mg tablet Take 1 tablet by mouth once daily. furosemide (LASIX) 80 mg tablet Take 1 tablet by mouth once daily. gabapentin (NEURONTIN) 300 mg capsule Take 1 capsule by mouth daily at bedtime for 90 days. metFORMIN ER (GLUCOPHAGE XR) 500 mg 24 hr tablet Take 1 tablet by mouth daily with breakfast. dulaglutide (TRULICITY) 1.5 mg/0.5 mL pen injector Inject 1.5 mg subcutaneously one time a week. Inject once per week. Discard Pen After traZODone (DESYREL) 100 mg tablet Take 1 tablet by mouth daily at bedtime. DULoxetine (CYMBALTA) 60 mg capsule Take 1 capsule by mouth once daily. lancets (TRUEPLUS LANCETS) 30 gauge Test four times daily Dx: 250.02 blood sugar diagnostic (BLOOD GLUCOSE TEST) test strip Test blood sugars up to 4 times daily as directed. Dx: Type 2 DM - Controlled E11.9 Insulin: Yes. Trumetrix brand spironolactone (ALDACTONE) 50 mg tablet Take 1 tablet by mouth once daily. pravastatin (PRAVACHOL) 20 mg tablet Take 1 tablet by mouth daily at bedtime. Cholecalciferol, Vitamin D3, 125 mcg (5,000 unit) cap Take 1 capsule by mouth once daily. ascorbic acid (VITAMIN C ORAL) Take 1 tablet by mouth once daily. nystatin (MYCOSTATIN) powder Apply 1 application to affected area four times daily. ibuprofen (MOTRIN) 800 mg tablet Take 1 tablet by mouth every 8 hours as needed (FOR PAIN. TAKE WITH FOOD). polyethylene glycol 3350 (MIRALAX, GLYCOLAX) 17 gram/dose powder Take 17 g by mouth once daily. (Patient taking differently: Take 17 g by mouth once daily. Prn) Blood-Glucose Meter monitoring kit Glucose Meter of Choice - Kit - Dx: Type 2 DM - Controlled E11.9Use twice daily as directed No current facility-administered medications for this visit. ALLERGIES: ALLERGIES Allergen Reactions Lyrica [Pregabalin] Anaphylaxis Not sure if accurate. Can take gabapentin. Patient is unsure of reaction. Accupril [Quinapril* Intolerance dizziness Actos [Pioglitazone] Swelling Amlodipine Swelling Leg edema Atenolol Swelling Atorvastatin Intolerance Muscle cramps and weakness Celebrex [Celecoxib] Swelling Effexor [Venlafaxin* swelling high blood pressure Januvia [Sitaglipti* GI Upset, Other: See Comments Patient states she couldn't eat Metoprolol Swelling Mobic [Meloxicam] GI Upset Prozac [Fluoxetine * Intolerance tremor Remeron [Mirtazapin* Rash Risperidone Mental Status Change Seroquel [Quetiapin* hypertension,swelling Vancomycin Itching, Other: See Comments, Rash red all over Other reaction(s): Other: See Comments red all over Vioxx [Rofecoxib] GI Upset Wellbutrin [Bupropi* Intolerance nightmares PAST MEDICAL HISTORY Diagnosis Date Abnormal glandular Papanicolaou smear of cervix 4/11/06 ABNL GLANDULAR PAP SMEAR CERVIX Acute gastritis without mention of hemorrhage Anxiety state, unspecified Arrhythmia Chronic cholecystitis Chronic obstructive pulmonary disease (COPD) ([facility]) Congestive heart failure ([facility]) 10/03/2011 Diabetes ([facility]) diabetes II 2011 Diaphragmatic hernia without mention of obstruction or gangrene Dysthymic disorder Depression (non-psychotic) Esophageal reflux Essential hypertension, benign Generalized OA Hyperprolactinemia ([facility]) 10/13/2005 Localized osteoarthrosis not specified whether primary or secondary, lower leg Major depressive disorder, recurrent episode Mucous polyp of cervix 07/19/05 Other and unspecified anterior pituitary hyperfunction ([facility]) 10/13/05 elevated prolactin level-was normal in 2011 PMH - PAST MEDICAL HISTORY OF sleep apnea PMH - PAST MEDICAL HISTORY OF sleep apnea SVT (supraventricular tachycardia) ([facility]) 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 Type 2 diabetes mellitus without complication, with long-term current use of insulin ([facility]) 12/22/2013 PAST SURGICAL HISTORY Procedure Laterality Date BIOPSY CERVIX SINGLE/MULT/EXCISION OF LESION SPX 07/19/05 endocervical polyp COLONOSCOPY FLX DX W/COLLJ SPEC WHEN PFRMD 01/09/2012 Colonoscopy repeat 10 years COLPOSCOPY CERVIX UPPER/ADJACENT VAGINA Colposcopy EGD TRANSORAL BIOPSY SINGLE/MULTIPLE 01/16/07 ESOPHAGOGASTRODUODENOSCOPY TRANSORAL DIAGNOSTIC 01/09/2012 EGD HERNIA REPAIR HX 11/2015 ventral HYSTEROSCOPY DX 12/17/2014 D&C LAPS SURG CHOLECYSTECTOMY W/CHOLANGIOGRAPHY 05/15/08 FAMILY HISTORY Problem Relation Age of Onset Hypertension Mother Heart Mother concha stroke Diabetes Mother Stroke Mother Massive- Arthritis Mother Osteoarthritis Hypertension Father COPD Father Hypertension Sister 2 Hypertension Brother 3 Heart Brother triple bypass at 48 Heart Maternal Aunt Heart Maternal Uncle Diabetes Brother 3 Brother's with diabetes Diabetes Sister Arthritis Sister Arthritis Brother Arthritis Brother Arthritis Brother Social History Tobacco Use Smoking status: Former Packs/day: 1.00 Years: 15.00 Pack years: 15.00 Types: Cigarettes Quit date: 12/20/1994 Years since quittin.1 Smokeless tobacco: Never Vaping Use Vaping Use: Never used Substance Use Topics Alcohol use: No Drug use: No Reviewed current medications, allergies, past medical history, surgical history, family history andsocial history today. REVIEW OF SYSTEMS All other reviewed and negative other than HPI. HEALTH MAINTENANCE: Reviewed health maintenance issues today and recommended the following in detail. HIV SCREENING Never done MAMMOGRAM-declines. COLORECTAL CANCER SCREENING believes was done through her insurance in last year. URINE ALBUMIN:CREATININE RATIO due on 01/24/2022 VITALS: BP 120/72 Pulse 88 Resp 16 Wt (!) 176.9 kg (390 lb) LMP 12/11/2008 BMI 78.77 kg/m Last 4 Encounter Wt Readings: Date: Wt: 02/15/2022 176.9 kg (390 lb) 11/17/2021 172.8 kg (381 lb) 07/06/2021 172.8 kg (381 lb) 04/29/2021 174.6 kg (385 lb) PHYSICAL EXAMINATION: General appearance: Well appearing, alert, in no acute distress, well-hydrated, well nourished., Morbidly obese, and Wheelchair Skin: Skin color, texture, turgor normal, no suspicious rashes or lesions Head: Normocephalic, no masses, lesions, tenderness or abnormalities Lungs: Lungs clear to auscultation. No wheezing, rhonchi, rales Heart: RRR without murmur, gallop, or rubs. No ectopy Abdomen: Normal abdominal exam, Abdomen soft, non-tender. Bowel sounds normal. No masses, organomegaly Extremities: no changes in edema. Neuro: Gait normal. Reflexes normal and symmetric. Sensation grossly intact., fine tremor at rest. ASSESSMENT/PLAN: 1. Type 2 diabetes mellitus with peripheral neuropathy (HCC) - ICD9: 250.60, 357.2, ICD10: E11.42 (primary diagnosis) - follow labs. - HGB A1C - CBC + DIFF - BASIC METABOLIC PNL - ALBUMIN/CREAT RATIO RND UR - HGB A1C 2. SVT (supraventricular tachycardia) (HCC) - ICD9: 427.89, ICD10: I47.1 - call if symptomatic 3. Benign hypertensive heart disease with CHF, NYHA class 2 (HCC) - ICD9: 402.11, 428.0, ICD10: I11.0 - good control - Continue current medication(s) - Goal of BP <130/80 4. Obstructive sleep apnea - ICD9: 327.23, ICD10: G47.33 - continue to follow. 5. Primary hyperparathyroidism (HCC) - ICD9: 252.01, ICD10: E21.0 Saw endo in the past. 7. Hypercalcemia - ICD9: 275.42, ICD10: E83.52 - follow labs. - PTH INTACT BLD - CALCIUM IONIZED BLOOD 8. DDD (degenerative disc disease), cervical - ICD9: 722.4, ICD10: M50.30 - check urine. Meds are benefiting her. Consider returning to pain management if continues. - TOX SCREEN ROUT UR 9. DDD (degenerative disc disease), lumbar - ICD9: 722.52, ICD10: M51.36 - TOX SCREEN ROUT UR 10. Anxiety state - ICD9: 300.00, ICD10: F41.1 - stable 11. Tremor - ICD9: 781.0, ICD10: R25.1 - back to neuro - CONSULT TO NEUROLOGY - TSH BLD 12. Screening for HIV (human immunodeficiency virus) - ICD9: V73.89, ICD10: Z11.4 - HIV 1 2 COMBO(AG/AB),WITH REFLEX TO DIFFERENTIATION Nehemiah Herbert MD RTO in three months documented in this encounterPremier Health [facility] Center12-19-2022 Miscellaneous Notes* Telephone Encounter - Marlee Pennington RN - 02/06/2022 8:36 AM EST Patient calls and states that she has been taking 25 units at bedtime. Patient states that she is need a refill on medication sent to [facility]. Please review and advise, Marlee Pennington RN documented in this encounterPremier Health [facility] Center12-01-2022 Miscellaneous Notes* Telephone Encounter - Tg Sexton - 01/19/2022 12:41 PM EST Faxed. Tg Sexton * Telephone Encounter - Tg Sexton - 01/19/2022 11:34 AM EST Received home health cert and plan of care from [facility]. Needs signed and faxed back to [phone]. Placed on Dr. Herbert's desk. gT Sexton documented in this encounterPremier Health At[facility] Medical Center11-23-2022 Miscellaneous Notes* Telephone Encounter - Kelli Samaniego Pss - 01/11/2022 9:27 AM EST Patient has been identified by name and date of : Yes Last office visit in this department: 11/17/2021 Labs-11/17/21 NOV-02/15/22 RX INSTRUCTIONS: Patient aware RX will be sent to pharmacy. No need to notify patient. Patient phones requesting refills as follows: Requested Prescriptions Pending Prescriptions Disp Refills Insulin Maljamar, Disposable, (BD ULTRA-FINE MADI PEN NEEDLE) 32 gauge x 5/32 100 Each 11 Sig: Use one needle for each dose. 2/day. Please review and advise. Kelli Samaniego Pss documented in this encounterPremier Health [facility] Center11-21-2022 Miscellaneous Notes* Telephone Encounter - Jocelin Torresc - 01/09/2022 5:00 PM EST Patient has been identified by name and date of : Yes Requested Prescriptions Pending Prescriptions Disp Refills methocarbamol (ROBAXIN) 500 mg tablet 60 tablet 1 Sig: Take 1 tablet by mouth twice daily. HYDROcodone-acetaminophen (NORCO) 5-325 mg per tablet 60 tablet 0 Sig: Take 1 tablet by mouth twice daily as needed for pain for up to 3 days. [facility]- Labs-11/17/21 NOV-02/15/22 RX INSTRUCTIONS: Patient aware RX will be sent to pharmacy. No need to notify patient. Jocelin Braunse documented in this encounterPremier Health [facility] Center10-28-2022 Miscellaneous Notes* Telephone Encounter - Keo Napier LPN - 12/16/2021 4:50 PM EDT Noted on form that pt was requesting ROHO cushion for bariatric sz w/c. Form faxed back to [id number]. Keo Napier LPN * Telephone Encounter - Clarita Mathews APRN.CNP - 12/16/2021 4:35 PM EDT Can we please let DME company know? * Telephone Encounter - Keo Napier LPN - 12/16/2021 4:10 PM EDT TC to pt, notified of provider response. She states she does use a Bariatric sz w/c. Keo Napier LPN * Telephone Encounter - Clarita Mathews APRN.CNP - 12/16/2021 3:39 PM EDT Can please let patient know that we heard from [employer]. They only supply ROHO cushions for wheelchairs. Not chairs for the home. Does she use a wheelchair? * Telephone Encounter - Keo Napier LPN - 12/16/2021 9:52 AM EDT Patient has been identified by name and date of : Yes Type of form: DME form from [employer] Form received via: Fax When form is completed, fax form to fax number provided. Form has been forwarded to: Provider's desk. Provider name: LIZZIE De Jesus LPN documented in this encounterPremier Health [facility] Center10-17-2022 Miscellaneous Notes* Telephone Encounter - Clarita Mathews APRN.CNP - 12/05/2021 7:24 PM EDT Script sent. Clarita Mathews APRN.LIZZIE * Telephone Encounter - Jocelin Amanuel [facility] - 12/05/2021 9:38 AM EDT Wilton Alan Khan is calling Nehemiah Herbert MD today to request new RX for medication not found on current medication list: Potassium CL ER 10 meq tablet, taking one tablet by mouth once daily. Please send as 90 day supply with refills to [facility] in [place] Please call patient with any questions at [phone] Patient has been identified by name and birthdate. [facility] documented in this encounterPremier Health [facility] Center10-17-2022 Miscellaneous Notes* Telephone Encounter - Jennifer Orozco MA - 12/05/2021 10:03 AM EDT Patient has been identified by name and date of : Yes Requested Prescriptions Pending Prescriptions Disp Refills ARIPiprazole (ABILIFY) 10 mg tablet 90 tablet 3 Sig: Take 1 tablet by mouth once daily. RX INSTRUCTIONS: Patient aware RX will be sent to pharmacy. No need to notify patient. Jennifer Orozco MA [facility]: 10/2021 Nov: 01/2022 Last refill: 05/2021 * Telephone Encounter - Jocelin Vital [facility] - 12/05/2021 9:31 AM EDT Patient has been identified by name and date of : Yes Requested Prescriptions Pending Prescriptions Disp Refills ARIPiprazole (ABILIFY) 10 mg tablet 90 tablet 3 Sig: Take 1 tablet by mouth once daily. RX INSTRUCTIONS: Patient aware RX will be sent to pharmacy. No need to notify patient. [facility] Electron[facility] by [facility] at 12/05/2021 9:38 AM EDT documented in this encounterPremier Health At[facility] Center10-12-2022 Miscellaneous Notes* Telephone Encounter - Audelia Granados - 11/30/2021 8:51 AM EDT Patient has been identified by name and date of : Yes Last office visit in this department: 11/17/2021 RX INSTRUCTIONS: Patient aware RX will be sent to pharmacy. No need to notify patient. Patient phones requesting refills as follows: Requested Prescriptions Pending Prescriptions Disp Refills HYDROcodone-acetaminophen (NORCO) 5-325 mg per tablet 60 tablet 0 Sig: Take 1 tablet by mouth twice daily as needed for pain for up to 3 days. Please review and advise. Audelia Granados documented in this encounterPremier Health [facility] Center10-06-2022 Miscellaneous Notes* Telephone Encounter - Aspen Villanueva LPN - 11/24/2021 8:53 AM EDT [facility]: 11/17/21 NOV: 02/15/22 Last Refill: 09/14/20 #90 3 refills Aspen Villanueva LPN * Telephone Encounter - Narda Fournier - 11/24/2021 8:21 AM EDT Patient has been identified by name and date of : Yes Requested Prescriptions Pending Prescriptions Disp Refills famotidine (PEPCID) 40 mg tablet 90 tablet 3 Sig: Take 1 tablet by mouth once daily. RX INSTRUCTIONS: Patient aware RX will be sent to pharmacy. No need to notify patient. Narda Fournier documented in this encounterPremier Health [facility] Center10-03-2022 Miscellaneous Notes* Telephone Encounter - Leida Nava Ma - 11/21/2021 2:42 PM EDT Letter mailed to pt home of results. Leida Nava MA * Telephone Encounter - Leida Nava Ma - 11/21/2021 2:41 PM EDT ----- Message from Nehemiah Herbert MD sent at 11/18/2021 8:40 AM EDT ----- She has my chart but I don't think she says she can use it well. Call and let her know her sugars are much improved. Rest of labs are good. Nehemiah Herbert MD documented in this encounterPremier Health At[facility] Center09-29-2022 History of Present illness Narrative* Nehemiah Herbert MD - 11/17/2021 2:19 PM EDT Patient presents with: Follow Up HPI: Patient presents today for office visit for 3 month follow up. DM: Reports overall feeling well. Medication side effects: No. Home sugar check frequency/results: QID Hypoglycemic spells: No. Watching diet: Yes. Unexpected weight loss: No. Polyuria, polydipsia: No. Vision Changes: No. Foot lesions or numbness or pain: No. Saw wound care beginning of September. Healing well. No pain. Wounds will periodically break open. Chronic pain: Pain in B/L feet and legs would like to discuss restarting Gabapentin. Would like Rx for Ibuprofen 800 mg, currently taking OTC. Uses meds prn. Aware of risks and benefits. Discussed avoiding overuse of nsads. Did much better on donald Emotionally is doing well. Denies any current issues. Only taking her lasix once a day. Was urinating too much. No increased shortness of breath or edema. See last ov: Still seeing wound care for her thigh wounds. Healing well. No pain. Underwent parathyroidectomy. Surgery went well. Feels well. Surgical site has closed. Chronic pain:oarrs was checked. Has seen pain management previously for the same. Aware of risks and benefits of meds. No misuse or abuse. Feels it helps her to function and perform her ADL's HLD:no myalgias. CARDIO: no chest pain or shortness of breath. No worsening edema. Sugars have been higher recently. She is trying to watch her diet. MEDICATIONS: Current Outpatient Medications Medication Sig nystatin (MYCOSTATIN) cream Apply 1 application to affected area twice daily. metFORMIN ER (GLUCOPHAGE XR) 500 mg 24 hr tablet Take 1 tablet by mouth daily with breakfast. furosemide (LASIX) 80 mg tablet Take 1 tablet by mouth twice daily. dulaglutide (TRULICITY) 1.5 mg/0.5 mL pen injector Inject 1.5 mg subcutaneously one time a week. Inject once per week. Discard Pen After traZODone (DESYREL) 100 mg tablet Take 1 tablet by mouth daily at bedtime. DULoxetine (CYMBALTA) 60 mg capsule Take 1 capsule by mouth once daily. HYDROcodone-acetaminophen (NORCO) 5-325 mg per tablet Take 1 tablet by mouth twice daily as needed for pain for up to 3 days. lancets (TRUEPLUS LANCETS) 30 gauge Test four times daily Dx: 250.02 blood sugar diagnostic (BLOOD GLUCOSE TEST) test strip Test blood sugars up to 4 times daily as directed. Dx: Type 2 DM - Controlled E11.9 Insulin: Yes. Trumetrix brand spironolactone (ALDACTONE) 50 mg tablet Take 1 tablet by mouth once daily. potassium chloride (K-TAB) 10 mEq tablet Take 1 tablet by mouth once daily. ARIPiprazole (ABILIFY) 10 mg tablet Take 1 tablet by mouth once daily. pravastatin (PRAVACHOL) 20 mg tablet Take 1 tablet by mouth daily at bedtime. methocarbamol (ROBAXIN) 500 mg tablet Take 1 tablet by mouth twice daily. Cholecalciferol, Vitamin D3, 125 mcg (5,000 unit) cap Take 1 capsule by mouth once daily. ascorbic acid (VITAMIN C ORAL) Take 1 tablet by mouth once daily. nystatin (MYCOSTATIN) powder Apply 1 application to affected area four times daily. Insulin Maljamar, Disposable, (BD ULTRA-FINE MADI PEN NEEDLE) 32 gauge x Use one needle for each dose. 2/day. ibuprofen (MOTRIN) 800 mg tablet Take 1 tablet by mouth every 8 hours as needed (FOR PAIN. TAKE WITH FOOD). famotidine (PEPCID) 40 mg tablet Take 1 tablet by mouth once daily. polyethylene glycol 3350 (MIRALAX, GLYCOLAX) 17 gram/dose powder Take 17 g by mouth once daily. (Patient taking differently: Take 17 g by mouth once daily. Prn) Blood-Glucose Meter monitoring kit Glucose Meter of Choice - Kit - Dx: Type 2 DM - Controlled E11.9Use twice daily as directed No current facility-administered medications for this visit. ALLERGIES: ALLERGIES Allergen Reactions Lyrica [Pregabalin] Anaphylaxis Not sure if accurate. Can take gabapentin. Patient is unsure of reaction. Accupril [Quinapril* Intolerance dizziness Actos [Pioglitazone] Swelling Amlodipine Swelling Leg edema Atenolol Swelling Atorvastatin Intolerance Muscle cramps and weakness Celebrex [Celecoxib] Swelling Effexor [Venlafaxin* swelling high blood pressure Januvia [Sitaglipti* GI Upset, Other: See Comments Patient states she couldn't eat Metoprolol Swelling Mobic [Meloxicam] GI Upset Prozac [Fluoxetine * Intolerance tremor Remeron [Mirtazapin* Rash Risperidone Mental Status Change Seroquel [Quetiapin* hypertension,swelling Vancomycin Itching, Other: See Comments, Rash red all over Other reaction(s): Other: See Comments red all over Vioxx [Rofecoxib] GI Upset Wellbutrin [Bupropi* Intolerance nightmares PAST MEDICAL HISTORY Diagnosis Date Abnormal glandular Papanicolaou smear of cervix 05/30/05 ABNL GLANDULAR PAP SMEAR CERVIX Acute gastritis without mention of hemorrhage Anxiety state, unspecified Arrhythmia Chronic cholecystitis Chronic obstructive pulmonary disease (COPD) ([facility]) Congestive heart failure ([facility]) 10/03/2011 Diabetes ([facility]) diabetes II 2010 Diaphragmatic hernia without mention of obstruction or gangrene Dysthymic disorder Depression (non-psychotic) Esophageal reflux Essential hypertension, benign Generalized OA Hyperprolactinemia ([facility]) 10/13/2005 Localized osteoarthrosis not specified whether primary or secondary, lower leg Major depressive disorder, recurrent episode Mucous polyp of cervix 07/19/05 Other and unspecified anterior pituitary hyperfunction ([facility]) 10/13/05 elevated prolactin level-was normal in 2011 PMH - PAST MEDICAL HISTORY OF sleep apnea PMH - PAST MEDICAL HISTORY OF sleep apnea SVT (supraventricular tachycardia) ([facility]) 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 Type 2 diabetes mellitus without complication, with long-term current use of insulin ([facility]) 12/22/2013 PAST SURGICAL HISTORY Procedure Laterality Date BIOPSY CERVIX SINGLE/MULT/EXCISION OF LESION SPX 07/19/05 endocervical polyp COLONOSCOPY FLX DX W/COLLJ SPEC WHEN PFRMD 01/09/2012 Colonoscopy repeat 10 years COLPOSCOPY CERVIX UPPER/ADJACENT VAGINA Colposcopy EGD TRANSORAL BIOPSY SINGLE/MULTIPLE 01/16/07 ESOPHAGOGASTRODUODENOSCOPY TRANSORAL DIAGNOSTIC 01/09/2012 EGD HERNIA REPAIR HX 11/2015 ventral HYSTEROSCOPY DX 12/17/2014 D&C LAPS SURG CHOLECYSTECTOMY W/CHOLANGIOGRAPHY 05/15/08 FAMILY HISTORY Problem Relation Age of Onset Hypertension Mother Heart Mother concha stroke Diabetes Mother Stroke Mother Massive- Arthritis Mother Osteoarthritis Hypertension Father COPD Father Hypertension Sister 2 Hypertension Brother 3 Heart Brother triple bypass at 48 Heart Maternal Aunt Heart Maternal Uncle Diabetes Brother 3 Brother's with diabetes Diabetes Sister Arthritis Sister Arthritis Brother Arthritis Brother Arthritis Brother Social History Tobacco Use Smoking status: Former Packs/day: 1.00 Years: 15.00 Pack years: 15.00 Types: Cigarettes Quit date: 12/20/1994 Years since quittin.9 Smokeless tobacco: Never Vaping Use Vaping Use: Never used Substance Use Topics Alcohol use: No Drug use: No Reviewed current medications, allergies, past medical history, surgical history, family history andsocial history today. REVIEW OF SYSTEMS All other reviewed and negative other than HPI. VITALS: BP 118/70 Pulse 77 Ht 149.9 cm (4' 11) Wt (!) 172.8 kg (381 lb) LMP 12/11/2008 SpO2 97% BMI 76.95 kg/m Last 4 Encounter Wt Readings: Date: Wt: 07/06/2021 172.8 kg (381 lb) 04/29/2021 174.6 kg (385 lb) 04/20/2021 174.6 kg (385 lb) 12/31/2020 181.5 kg (400 lb 3.2 oz) PHYSICAL EXAMINATION: General appearance: Wheelchair Skin: Skin color, texture, turgor normal, no suspicious rashes or lesions Head: Normocephalic, no masses, lesions, tenderness or abnormalities Neck: Supple, no adenopath Lungs: Lungs clear to auscultation. No wheezing, rhonchi, rales Heart: RRR without murmur, gallop, or rubs. No ectopy Abdomen: Normal abdominal exam, Abdomen soft, non-tender. Bowel sounds normal. No masses, organomegaly Extremities: No deformities,one plus chronic edema. , skin discoloration, clubbing or cyanosis. Good capillary refill. ASSESSMENT/PLAN: 1. Type 2 diabetes mellitus with peripheral neuropathy (HCC) - ICD9: 250.60, 357.2, ICD10: E11.42 (primary diagnosis) Controlled. - Continue current medications - HGB A1C - LIPID PANEL, NONFASTING 2. Encounter for immunization - ICD9: V03.89, ICD10: Z23 - INFLUENZA VACCINE QUADRIVALENT 6 MO - 64 YRS IM - PNEUMOCOCCAL VACCINE (PREVNAR 20) 3. Benign hypertensive heart disease with CHF, NYHA class 2 (HCC) - ICD9: 402.11, 428.0, ICD10: I11.0 - good control - Continue current medication(s) - Goal of BP <130/80 4. Primary hyperparathyroidism (HCC) - ICD9: 252.01, ICD10: E21.0 - follow progress of labs. 5. DDD (degenerative disc disease), lumbar - ICD9: 722.52, ICD10: M51.36 - readd gabapentin. Call with update in one month 6. Essential hypertension, benign - ICD9: 401.1, ICD10: I10 - good control - Continue current medication(s) - Goal of BP <130/80 - CBC + DIFF - COMP METABOLIC PANEL - FUROSEMIDE 80 MG TABLET 7. Obstructive sleep apnea - ICD9: 327.23, ICD10: G47.33 - stable. 8. Diffuse myofascial pain syndrome - ICD9: 729.1, ICD10: M79.18 - call if any issues. 9. DDD (degenerative disc disease), cervical - ICD9: 722.4, ICD10: M50.30 - GABAPENTIN 300 MG CAPSULE Nehemiah Herbert RTO in three months and prn. documented in this encounterPremier [facility]09-09-2022 Miscellaneous Notes* Telephone Encounter - Keo Napier LPN - 10/28/2021 10:54 AM EDT [facility] 08/12/21 NOV 11/17/21 * Telephone Encounter - Keisha Hale Pss - 10/28/2021 10:34 AM EDT Patient has been identified by name and date of : Yes Requested Prescriptions Pending Prescriptions Disp Refills nystatin (MYCOSTATIN) cream Sig: Apply 1 application to affected area twice daily. RX INSTRUCTIONS: Patient aware RX will be sent to pharmacy. No need to notify patient. Keisha Hale Pss documented in this encounterPremier Health [facility] Center09-08-2022 Miscellaneous Notes* Telephone Encounter - Brittany Valencia LPN - 10/27/2021 12:07 PM EDT Patient notified and verbalizes understanding. * Telephone Encounter - Nehemiah Herbert MD - 10/27/2021 12:02 PM EDT They are looking better. Keep up the good work. Call if start going up * Telephone Encounter - Emily Garcia RN - 10/27/2021 8:48 AM EDT Patient calls with blood sugar readings as requested: Date 6 am 12 pm 5 pm 9 pm 10/21 210 178 180 160 10/22 130 170 150 165 10/23 149 171 151 169 10/24 142 175 153 164 10/25 141 170 132 --- 10/26 121 162 159 162 10/27 130 Patient reports that she is taking metformin ER 500 mg with breakfast and Lantus 25 units in the am. Please review and advise, Emily Garcia RN documented in this encounterPremier Health [facility]09-02-2022 Miscellaneous Notes* Telephone Encounter - Emily Garcia RN - 10/21/2021 3:00 PM EDT Patient calls and notified of providers instructions. Patient verbalizes understanding. Emily Garcia RN * Telephone Encounter - Yokasta Reese RN - 10/21/2021 1:06 PM EDT Called and left a voicemail for the Patient to call back and ask for a nurse to receive the providers message. Yokasta Reese RN * Telephone Encounter - Nehemiah Herbert MD - 10/21/2021 10:34 AM EDT Slightly higher. Really watch diet. Send in list of sugars in one week and report on diarrhea. * Telephone Encounter - Yokasta Reese RN - 10/21/2021 10:08 AM EDT Pt called in with list of recent blood sugar readings. 6am 12pm 5pm 9pm 10/14 120 142 101 106 10/15 151 181 112 160 10/16 124 140 140 173 10/17 125 170 144 156 10/18 138 216 160 212(took Lantus at night) 10/19 150 150 143 160 10/20 155 212 180 230 (Pt had a Cortisone shot, took Lantus at night) 10/21 210 documented in this encounterPremier Health [facility]09-01-2022 History of Present illness Narrative* Jayden Samaniego MD - 10/20/2021 1:44 PM EDTAssociated Order(s): Large Joint Arthro/Inj: L knee joint Patient presents with: Right Knee - Established Patient, Knee Pain, Injections: 1 wk 3 days post visit bilateral knee painwith injection given in right knee - wants injection left knee Left Knee - Established Patient, Knee Pain, Injections: 1 wk 3 days post visit bilateral knee pain with injection given in right knee - wants injection left knee AMB ROOMING INTAKE FLOWSHEET DATA Risk Screening Do you have concerns about personal safety or safety in the home?: No Pain Pain Level: 7 Pain Location: Knee-Left Description: Aching, Sharp, Stabbing/Not Incision Duration Units: Years Frequency: Continuous Intervention/Comfort measure: Medication, Cold Patient is here today for left knee pain. She was here last week and received an injection into herright knee and stated that the injection has helped control the pain. She is requesting an injection into her left knee today. Large Joint Arthro/Inj: L knee joint Informed Consent Consent Obtained: Verbal [place] Protocol A moment to CARE was completed. SIGN IN Sign in communication not applicable due to emergent procedure. Personnel directly involved with the procedure wore the appropriate PPE. Special Equipment: N/A Patient/Surrogate Stated/Verified: Patient name, Date of , Relevant allergies and Intended procedure TIME OUT Intended patient and procedure match the source document(s). Relevant labs, photos, and/or imaging studies have been reviewed. Correct side/site marked and visible. Medications required for procedure verified. No fire risk assessment and interventions applicable. No implant(s) inserted. 10/20/2021 2:08 PM The procedure site was prepped in the usual sterile fashion. Site: L knee joint Medications: 6 mg betamethasone acetate-betamethasone sodium phosphate 6 mg/mL Anesthetics: 4 mL lidocaine (PF) 10 mg/mL (1 %) Outcome: Tolerated well, no immediate complications Post-injection instructions were reviewed with the patient and the patient voiced understanding of these instructions. SIGN OUT No specimen collected. All instruments, equipment, possible retained foreign bodies accounted for. Post-procedure follow-up management communicated and Plan of Care Visit completed when applicable documented in this encounterPremier Health [facility] Center08-29-2022 Miscellaneous Notes* Telephone Encounter - Ktae Brunner LPN - 10/17/2021 11:02 AM EDT PATIENT NOTIFIED OF SAME. * Telephone Encounter - Tg Sexton - 10/17/2021 10:32 AM EDT Placed call to patient on both home and cell phone with no answer. Left detailed messages advising her to decrease the Metformin to once a day and call with sugars on Sunday. Advised patient to call back and let us know she received message. Try again later. Tg Sexton * Telephone Encounter - Nehemiah Herbert MD - 10/16/2021 12:57 PM EDT Decrease it to once a day. Call sugars on Sunday * Telephone Encounter - Sanjay Rondon RN - 10/14/2021 4:45 PM EDT Patient phoned to let pcp know, she has been having a lot of diarrhea since the increase on her metformin to twice daily. Reports it was increased on 09-12-21. Asking pcp to please advise. Patient aware she will probably not hear back from pcp office until next week and states she is ok with this. documented in this encounterPremier Health [facility]08-25-2022 Miscellaneous Notes* Telephone Encounter - Sanjay Abbasi PA-C - 10/13/2021 7:32 PM EDT Please hold lantus and continue to report blood sugars weekly: great job! If sugars are higher than 200 consistently, let us know. Thanks, Micah Abbasi PA-C * Telephone Encounter - Yokasta Reese RN - 10/13/2021 11:25 AM EDT Pt reports she started her 1.5 mg of Trulicity, and called in her blood sugar readings. 6am 12pm 5pm 9pm 10/07 170 150 125 142 10/08 126 153 175 150 (No Lantus) 10/09 130 151 157 171 10/10 141 146 169 165 (Had Cortisone shot on 10/10) 10/11 136 171 155 162 10/12 150 170 120 149 (No lantus) 10/13 114 Pt reports she didn't take her Lantus those two night because of how low her blood sugar was, she didn't want it to be too low I the morning. documented in this encounterPremier Health [facility]08-24-2022 Miscellaneous Notes* Telephone Encounter - Leida Nava Ma - 10/12/2021 8:49 AM EDT Last office visit: 08/12/21 F/u scheduled: 11/17/21 Leida Nava Ma * Telephone Encounter - Dilia Helton Pss - 10/12/2021 8:39 AM EDT Pharmacy verified in [facility] Patient has been identified by name and date of : Yes Patient aware RX will be sent to pharmacy. No need to notify patient. Patient phones for refill(s): Requested Prescriptions Pending Prescriptions Disp Refills furosemide (LASIX) 80 mg tablet 90 tablet 1 Sig: Take 1 tablet by mouth twice daily. Date of last office visit : 08/12/2021 Date of next office visit : 11/17/2021 Last 2 Encounter Wt Readings: Date: Wt: 07/06/2021 172.8 kg (381 lb) 04/29/2021 174.6 kg (385 lb) Please advise. Dilia Helton Pss documented in this encounterPremier Health [facility]08-22-2022 History of Present illness Narrative* Jayden Samaniego MD - 10/10/2021 12:02 PM EDTAssociated Order(s): Large Joint Arthro/Inj: R knee joint Post-Procedure Diagnose(s): Chronic pain of both knees; Primary osteoarthritis of both knees Jayden Samaniego MD Department of Orthopaedics Orthopaedics [address] [place] [id number] Dept: [phone] Dept October 10, 2021 CHIEF COMPLAINT: Established Patient of the Left Knee and Established Patient of the Right Knee (Bilateral knee pain - Last seen 03/17/19 bilateral knee pain) HPI Patient here today with complaints of bilateral knee pain. Reports she saw Dr. Corrales in 04/2021 and received cortisone injections. Patient states she takes Tylenol arthritis and [place] with some relief. X-ray completed on 04/20/2021. ASSESSMENT: M25.561, M25.562, G89.29 Chronic pain of both knees (primary encounter diagnosis) M17.0 Primary osteoarthritis of both knees PLAN: Would be nice if she can get back in with bariatrics. In the meantime, we will stagger her cortisone injections as she does feel like they can help. FOLLOW UP INSTRUCTIONS: Next week for repeat injection Ms. Wilton Khan was advised as to contrast therapies and/or to take analgesics/anti-inflammatories as needed and all contraindications were reviewed. Large Joint Arthro/Inj: R knee joint Informed Consent Consent Obtained: Verbal [place] Protocol A moment to CARE was completed. SIGN IN Personnel directly involved with the procedure wore the appropriate PPE. Special Equipment: N/A Patient/Surrogate Stated/Verified: Patient name, Date of , Relevant allergies and Intended procedure TIME OUT Intended patient and procedure match the source document(s). Consent documented and matches the intended procedure. Relevant labs, photos, and/or imaging studies have been reviewed. Correct side/site marked and visible. Medications required for procedure verified. No fire risk assessment and interventions applicable. No implant(s) inserted. 10/10/2021 12:30 PM The procedure site was prepped in the usual sterile fashion. Site: R knee joint Medications: 6 mg betamethasone acetate-betamethasone sodium phosphate 6 mg/mL Anesthetics: 4 mL lidocaine (PF) 10 mg/mL (1 %) Outcome: Tolerated well, no immediate complications Post-injection instructions were reviewed with the patient and the patient voiced understanding of these instructions. SIGN OUT No specimen collected. All instruments, equipment, possible retained foreign bodies accounted for. Post-procedure follow-up management communicated and Plan of Care Visit completed when applicable Supporting Subjective Information Below: Past Medical History: PAST MEDICAL HISTORY Diagnosis Date Abnormal glandular Papanicolaou smear of cervix 05/30/05 ABNL GLANDULAR PAP SMEAR CERVIX Acute gastritis without mention of hemorrhage Anxiety state, unspecified Arrhythmia Chronic cholecystitis Chronic obstructive pulmonary disease (COPD) ([facility]) Congestive heart failure ([facility]) 10/03/2011 Diabetes ([facility]) diabetes II 2010 Diaphragmatic hernia without mention of obstruction or gangrene Dysthymic disorder Depression (non-psychotic) Esophageal reflux Essential hypertension, benign Generalized OA Hyperprolactinemia ([facility]) 10/13/2005 Localized osteoarthrosis not specified whether primary or secondary, lower leg Major depressive disorder, recurrent episode Mucous polyp of cervix 07/19/05 Other and unspecified anterior pituitary hyperfunction ([facility]) 10/13/05 elevated prolactin level-was normal in 2011 PMH - PAST MEDICAL HISTORY OF sleep apnea PMH - PAST MEDICAL HISTORY OF sleep apnea SVT (supraventricular tachycardia) ([facility]) 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 Type 2 diabetes mellitus without complication, with long-term current use of insulin ([facility]) 12/22/2013 Past Surgical History: PAST SURGICAL HISTORY Procedure Laterality Date BIOPSY CERVIX SINGLE/MULT/EXCISION OF LESION SPX 07/19/05 endocervical polyp COLONOSCOPY FLX DX W/COLLJ SPEC WHEN PFRMD 01/09/2012 Colonoscopy repeat 10 years COLPOSCOPY CERVIX UPPER/ADJACENT VAGINA Colposcopy EGD TRANSORAL BIOPSY SINGLE/MULTIPLE 01/16/07 ESOPHAGOGASTRODUODENOSCOPY TRANSORAL DIAGNOSTIC 01/09/2012 EGD HERNIA REPAIR HX 11/2015 ventral HYSTEROSCOPY DX 12/17/2014 D&C LAPS SURG CHOLECYSTECTOMY W/CHOLANGIOGRAPHY 05/15/08 Family History: FAMILY HISTORY Problem Relation Age of Onset Hypertension Mother Heart Mother concha stroke Diabetes Mother Stroke Mother Massive- Arthritis Mother Osteoarthritis Hypertension Father COPD Father Hypertension Sister 2 Hypertension Brother 3 Heart Brother triple bypass at 48 Heart Maternal Aunt Heart Maternal Uncle Diabetes Brother 3 Brother's with diabetes Diabetes Sister Arthritis Sister Arthritis Brother Arthritis Brother Arthritis Brother Social History: Social History Tobacco Use Smoking status: Former Packs/day: 1.00 Years: 15.00 Pack years: 15.00 Types: Cigarettes Quit date: 12/20/1994 Years since quittin.8 Smokeless tobacco: Never Vaping Use Vaping Use: Never used Substance Use Topics Alcohol use: No Drug use: No Medications: Current Outpatient Medications Medication Sig ARTHRITIS PAIN RELIEF 650 mg CR tablet Take 1 tablet by mouth every 6 hours as needed. dulaglutide (TRULICITY) 1.5 mg/0.5 mL pen injector Inject 1.5 mg subcutaneously one time a week. Inject once per week. Discard Pen After traZODone (DESYREL) 100 mg tablet Take 1 tablet by mouth daily at bedtime. DULoxetine (CYMBALTA) 60 mg capsule Take 1 capsule by mouth once daily. HYDROcodone-acetaminophen (NORCO) 5-325 mg per tablet Take 1 tablet by mouth twice daily as needed for pain for up to 3 days. metFORMIN ER (GLUCOPHAGE XR) 500 mg 24 hr tablet Take 1 tablet by mouth twice daily. spironolactone (ALDACTONE) 50 mg tablet Take 1 tablet by mouth once daily. potassium chloride (K-TAB) 10 mEq tablet Take 1 tablet by mouth once daily. furosemide (LASIX) 80 mg tablet Take 1 tablet by mouth twice daily. ARIPiprazole (ABILIFY) 10 mg tablet Take 1 tablet by mouth once daily. pravastatin (PRAVACHOL) 20 mg tablet Take 1 tablet by mouth daily at bedtime. methocarbamol (ROBAXIN) 500 mg tablet Take 1 tablet by mouth twice daily. Cholecalciferol, Vitamin D3, 125 mcg (5,000 unit) cap Take 1 capsule by mouth once daily. ascorbic acid (VITAMIN C ORAL) Take 1 tablet by mouth once daily. nystatin (MYCOSTATIN) powder Apply 1 application to affected area four times daily. ibuprofen (MOTRIN) 800 mg tablet Take 1 tablet by mouth every 8 hours as needed (FOR PAIN. TAKE WITH FOOD). insulin glargine (LANTUS SOLOSTAR U-100 INSULIN) 100 unit/mL (3 mL) Inject 25 Units subcutaneously twice daily. famotidine (PEPCID) 40 mg tablet Take 1 tablet by mouth once daily. nystatin (MYCOSTATIN) cream Apply 1 application to affected area twice daily. polyethylene glycol 3350 (MIRALAX, GLYCOLAX) 17 gram/dose powder Take 17 g by mouth once daily. (Patient taking differently: Take 17 g by mouth once daily. Prn) lancets (TRUEPLUS LANCETS) 30 gauge Test four times daily Dx: 250.02 blood sugar diagnostic (BLOOD GLUCOSE TEST) test strip Test blood sugars up to 4 times daily as directed. Dx: Type 2 DM - Controlled E11.9 Insulin: Yes. Trumetrix brand Insulin Maljam[place], Disposable, (BD ULTRA-FINE MADI PEN NEEDLE) 32 gauge x 5/32 Use one needle for each dose. 2/day. Blood-Glucose Meter monitoring kit Glucose Meter of Choice - Kit - Dx: Type 2 DM - Controlled E11.9Use twice daily as directed No current facility-administered medications for this visit. Allergies: Lyrica [Pregabalin], Accupril [Quinapril Hcl], Actos [Pioglitazone], Amlodipine, Atenolol, Atorvastatin, Celebrex [Celecoxib], Effexor [Venlafaxine Hcl], Januvia [Sitagliptin], Metoprolol,Mobic [Meloxicam], Prozac [Fluoxetine Hcl], Remeron [Mirtazapine], Risperidone, Seroquel [Quetiapine Fumarate], Vancomycin, Vioxx [Rofecoxib], and Wellbutrin [Bupropion Hcl] ROS: General (negative for fatigue, malaise, weight loss/gain) HEENT (negative for headache, earache, recent vision changes, sinus pain, sore throat) Respiratory (no recent shortness of breath, hemoptysis) CV (negative for chest tightness, palpitations) Musculoskeletal (see HPI) Psych (no depression, anxiety) REFERRING PHYSICIAN: Ms. Wilton Khan was referred to me for consultation by the following physician. This consultation note will be sent to the following physician by either mail or electronic medical record. SELF Nehemiah Herbert MD [address] [facility] [address] Jayden Samaniego MD documented in this encounterPremier Health [facility] Center08-15-2022 Miscellaneous Notes* Telephone Encounter - Dimple Turcios - 10/03/2021 11:31 AM EDT ARTHRITIS PAIN RELIEF 650 mg CR tablet 120 tablet 3 Sig: Take 1 tablet by mouth every 6 hours as needed. Sent to pharmacy as: ARTHRITIS PAIN RELIEF 650 mg CR tablet Class: Normal [facility] in [place]. Any questions please contact patient at [phone] Dimple Turcios documented in this encounterPremier Health [facility] Center08-10-2022 Miscellaneous Notes* Telephone Encounter - Keo Napier LPN - 09/28/2021 9:04 AM EDT [facility] 08/12/21 11/17/21 * Telephone Encounter - Narda Fournier - 09/28/2021 8:49 AM EDT Patient has been identified by name and date of : Yes Requested Prescriptions Pending Prescriptions Disp Refills traZODone (DESYREL) 100 mg tablet 90 tablet 1 Sig: Take 1 tablet by mouth daily at bedtime. DULoxetine (CYMBALTA) 60 mg capsule 90 capsule 1 Sig: Take 1 capsule by mouth once daily. RX INSTRUCTIONS: Patient aware RX will be sent to pharmacy. No need to notify patient. Narda Fournier documented in this encounterPremier Health [facility] Center08-08-2022 Miscellaneous Notes* Telephone Encounter - Clarita Mathews APRN.CNP - 09/26/2021 8:22 PM EDT Script sent. Clarita Mathews APRN.CNP * Telephone Encounter - Keo Napier LPN - 09/26/2021 3:[address] [facility] 08/12/21 11/17/21 Last rx written 08/12/21 # 60 with 0 refills Last urine tox screen NA * Telephone Encounter - Dimple Ramirez Pss - 09/26/2021 2:22 PM EDT Patient has been identified by name and date of : Yes Pending Prescriptions Disp Refills HYDROCODONE 5 MG-ACETAMINOPHEN 325 MG TABLET 60 tablet 0 Sig: Take 1 tablet by mouth twice daily as needed for pain for up to 3 days. YVETTE Class: C-II DWAINE: No RX INSTRUCTIONS: Patient aware RX will be sent to pharmacy. No need to notify patient. Dimple Ramirez Pss documented in this encounterPremier Health [facility] Center08-04-2022 Miscellaneous Notes* Telephone Encounter - Chantal Webb Ma - 09/22/2021 3:18 PM EDT Patient notified advised lets go ahead with trulicity or ozempic whichever provider prefers. [facility] Webb Ma * Telephone Encounter - Nehemiah Hrebert MD - 09/22/2021 3:09 PM EDT lantus is already about as high as I would go. Watch diet. Call if diarrhea worsens. Call sugar list on the . * Telephone Encounter - Chantal Webb Ma - 09/22/2021 3:02 PM EDT Spoke to patient who said diarrhea is tolerable but when she has to go she has to run. Patient roughly has 3-4 loose stools a day. Patient wants to know instead of adding medication can we increase her lantus at all? Advised wouldroute message back to pcp an will notify her after review Chantal Webb Ma * Telephone Encounter - Nehemiah Herbert MD - 09/22/2021 2:40 PM EDT Sugars still a little high. But can follow them. Might consider adding something like trulicity ro ozempic. How bad is the diarrhea? * Telephone Encounter - Micaela Reis LPN - 09/22/2021 2:03 PM EDT Wilton Khan is a 61 year old female who reports glucose readings as noted. Meal # 1 = Breakfast or first meal of day, Meal # 2 = Lunch, # 3 = Evening meal DATE 09/14 09/15 09/16 09/17 Fasting 139 180 163 162 Post Meal #1 Before Meal Post Meal # 2 168 211 227 240 Before Meal Post Meal # 3 187 240 200 156 Bedtime 240 220 183 177 Other DATE 09/18 09/19 09/20 Fasting 143 146 160 Post Meal #1 Before Meal Post Meal # 2 200 238 221 Before Meal Post Meal # 3 180 150 202 Bedtime 176 179 180 Other Any low blood sugars during this period of reporting No Patient's diabetes medications as follows: metformin 500 mg one tablet twice daily, Lantus 25 units twice daily Patient said she is having some diarrhea, she is going to see what continues and is drinking plentyof fluids. documented in this encounterPremier Health At[facility] Center08-03-2022 NoteHNO ID: [id number] Author: Keya Aparicio APRN.[employer] ROUSTABOUT Service: ? Author Type: Nurse Practitioner Type: Progress Notes Filed: 09/21/2021 4:15 PM Note Text: WOUND CENTER PROGRESS NOTE PATIENT NAME: Wilton Khan DATE OF FOLLOW UP: 09/21/2021 REASON FOR FOLLOW UP: right posterior thigh wound HISTORY OF PRESENT ILLNESS: Wilton Khan is a 61 year old y/o female w/ Hx DM, HTN, CHF, COPD, DJD, morbid obesity, who presents for wound assessment of right thigh wound. She has much difficulty with standing and ambulation d/t chronic bilat knee pain. She sits and sleeps in a recliner chair. She has a gel offloading cushion for her chair. She continues with physical therapy at home for strengthening. [facility] Her sisters help her with wound care other days needed. S/p parathyroidectomy 07/20/2021 She reports a new wound on her right posterior thigh. Location: right posterior thigh Onset: recurrent Aggravating factors: Debility, Diabetes mellitus, Immobility, Positioning and Pressure Wound etiology: Pressure Associated pain with wound: Yes, mild Relieving factors for wound pain: Positioning and Wound care Treatments: Current: Triad, Marcus SAP Past: Desitin, AANDD ointment, alginate w/ silver, Triad, Promogran PAST MEDICAL HISTORY Diagnosis Date - Abnormal glandular Papanicolaou smear of cervix 05/30/05 ABNL GLANDULAR PAP SMEAR CERVIX - Acute gastritis without mention of hemorrhage - Anxiety state, unspecified - Arrhythmia - Chronic cholecystitis - Chronic obstructive pulmonary disease (COPD) ([facility]) - Congestive heart failure (HCC) 10/03/2011 - Diabetes ([facility]) - diabetes II 2010 - Diaphragmatic hernia without mention of obstruction or gangrene - Dysthymic disorder Depression (non-psychotic) - Esophageal reflux - Essential hypertension, benign - Generalized OA - Hyperprolactinemia ([facility]) 10/13/2005 - Localized osteoarthrosis not specified whether primary or secondary, lower leg - Major depressive disorder, recurrent episode - Mucous polyp of cervix 07/19/05 - Other and unspecified anterior pituitary hyperfunction ([facility]) 10/13/05 elevated prolactin level-was normal in 2011 - PMH - PAST MEDICAL HISTORY OF sleep apnea - PMH - PAST MEDICAL HISTORY OF sleep apnea - SVT (supraventricular tachycardia) ([facility]) - 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 - Type 2 diabetes mellitus without complication, with long-term current use of insulin ([facility]) 12/22/2013 PAST SURGICAL HISTORY Procedure Laterality Date - BIOPSY CERVIX SINGLE/MULT/EXCISION OF LESION SPX 07/19/05 endocervical polyp - COLONOSCOPY FLX DX W/COLLJ SPEC WHEN PFRMD 01/09/2012 Colonoscopy repeat 10 years - COLPOSCOPY CERVIX UPPER/ADJACENT VAGINA Colposcopy - EGD TRANSORAL BIOPSY SINGLE/MULTIPLE 01/16/07 - ESOPHAGOGASTRODUODENOSCOPY TRANSORAL DIAGNOSTIC 01/09/2012 EGD - HERNIA REPAIR HX 11/2015 ventral - HYSTEROSCOPY DX 12/17/2014 DANDC - LAPS SURG CHOLECYSTECTOMY W/CHOLANGIOGRAPHY 05/15/08 ALLERGIES ALLERGIES Allergen Reactions - Lyrica [Pregabalin] Anaphylaxis Not sure if accurate. Can take gabapentin. Patient is unsure of reaction. - Accupril [Quinapril* Intolerance dizziness - Actos [Pioglitazone] Swelling - Amlodipine Swelling Leg edema - Atenolol Swelling - Atorvastatin Intolerance Muscle cramps and weakness - Celebrex [Celecoxib] Swelling - Effexor [Venlafaxin* swelling high blood pressure - Januvia [Sitaglipti* GI Upset, Other: See Comments Patient states she couldn't eat - Metoprolol Swelling - Mobic [Meloxicam] GI Upset - Prozac [Fluoxetine * Intolerance tremor - Remeron [Mirtazapin* Rash - Risperidone Mental Status Change - Seroquel [Quetiapin* hypertension,swelling - Vancomycin Itching, Other: See Comments, Rash red all over Other reaction(s): Other: See Comments red all over - Vioxx [Rofecoxib] GI Upset - Wellbutrin [Bupropi* Intolerance nightmares CURRENT OUTPATIENT MEDICATIONS lancets (TRUEPLUS LANCETS) 30 gauge Test four times daily Dx: 250.02 blood sugar diagnostic (BLOOD GLUCOSE TEST) test strip Test blood sugars up to 4 times daily as directed. Dx: Type 2 DM - Controlled E11.9 Insulin: Yes. Trumetrix brand metFORMIN ER (GLUCOPHAGE XR) 500 mg 24 hr tablet Take 1 tablet by mouth twice daily. DULoxetine (CYMBALTA) 60 mg capsule Take 1 capsule by mouth once daily. spironolactone (ALDACTONE) 50 mg tablet Take 1 tablet by mouth once daily. potassium chloride (K-TAB) 10 mEq tablet Take 1 tablet by mouth once daily. furosemide (LASIX) 80 mg tablet Take 1 tablet by mouth twice daily. ARIPiprazole (ABILIFY) 10 mg tablet Take 1 tablet by mouth once daily. pravastatin (PRAVACHOL) 20 mg tablet Take 1 tablet by mouth daily at bedtime. traZODone (DESYREL) 100 mg tablet Take 1 tablet by mouth daily at bedtime. methocarbamol (ROBAXIN) 500 mg tablet Take 1 tablet by mouth twi (more content not included)...[facility] [id number] History of Present illness Narrative* Keya Aparicio APRN.OIL FIELD ROUSTABOUT - 09/21/2021 3:33 PM EDT Images from the original note were not included. WOUND CENTER PROGRESS NOTE PATIENT NAME: Wilton Khan DATE OF FOLLOW UP: 09/21/2021 REASON FOR FOLLOW UP: right posterior thigh wound HISTORY OF PRESENT ILLNESS: Wilton Khan is a 61 year old y/o female w/ Hx DM, HTN, CHF, COPD, DJD, morbid obesity, who presents for wound assessment of right thigh wound. She has much difficulty with standing and ambulation d/t chronic bilat knee pain. She sits and sleeps in a recliner chair. She has a gel offloading cushion for her chair. She continues with physical therapy at home for strengthening. Pt has assistance of [facility] once a week. Her sisters help her with wound care other days needed. S/p parathyroidectomy 07/20/2021 She reports a new wound on her right posterior thigh. Location: right posterior thigh Onset: recurrent Aggravating factors: Debility, Diabetes mellitus, Immobility, Positioning and Pressure Wound etiology: Pressure Associated pain with wound: Yes, mild Relieving factors for wound pain: Positioning and Wound care Treatments: Current: Triad, Marcus SAP Past: Desitin, A&D ointment, alginate w/ silver, Triad, Promogran PAST MEDICAL HISTORY Diagnosis Date Abnormal glandular Papanicolaou smear of cervix 05/30/05 ABNL GLANDULAR PAP SMEAR CERVIX Acute gastritis without mention of hemorrhage Anxiety state, unspecified Arrhythmia Chronic cholecystitis Chronic obstructive pulmonary disease (COPD) ([facility]) Congestive heart failure ([facility]) 10/03/2011 Diabetes ([facility]) diabetes II 2010 Diaphragmatic hernia without mention of obstruction or gangrene Dysthymic disorder Depression (non-psychotic) Esophageal reflux Essential hypertension, benign Generalized OA Hyperprolactinemia ([facility]) 10/13/2005 Localized osteoarthrosis not specified whether primary or secondary, lower leg Major depressive disorder, recurrent episode Mucous polyp of cervix 07/19/05 Other and unspecified anterior pituitary hyperfunction ([facility]) 10/13/05 elevated prolactin level-was normal in 2011 PMH - PAST MEDICAL HISTORY OF sleep apnea PMH - PAST MEDICAL HISTORY OF sleep apnea SVT (supraventricular tachycardia) ([facility]) 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 Type 2 diabetes mellitus without complication, with long-term current use of insulin ([facility]) 12/22/2013 PAST SURGICAL HISTORY Procedure Laterality Date BIOPSY CERVIX SINGLE/MULT/EXCISION OF LESION SPX 07/19/05 endocervical polyp COLONOSCOPY FLX DX W/COLLJ SPEC WHEN PFRMD 01/09/2012 Colonoscopy repeat 10 years COLPOSCOPY CERVIX UPPER/ADJACENT VAGINA Colposcopy EGD TRANSORAL BIOPSY SINGLE/MULTIPLE 01/16/07 ESOPHAGOGASTRODUODENOSCOPY TRANSORAL DIAGNOSTIC 01/09/2012 EGD HERNIA REPAIR HX 11/2015 ventral HYSTEROSCOPY DX 12/17/2014 D&C LAPS SURG CHOLECYSTECTOMY W/CHOLANGIOGRAPHY 05/15/08 ALLERGIES ALLERGIES Allergen Reactions Lyrica [Pregabalin] Anaphylaxis Not sure if accurate. Can take gabapentin. Patient is unsure of reaction. Accupril [Quinapril* Intolerance dizziness Actos [Pioglitazone] Swelling Amlodipine Swelling Leg edema Atenolol Swelling Atorvastatin Intolerance Muscle cramps and weakness Celebrex [Celecoxib] Swelling Effexor [Venlafaxin* swelling high blood pressure Januvia [Sitaglipti* GI Upset, Other: See Comments Patient states she couldn't eat Metoprolol Swelling Mobic [Meloxicam] GI Upset Prozac [Fluoxetine * Intolerance tremor Remeron [Mirtazapin* Rash Risperidone Mental Status Change Seroquel [Quetiapin* hypertension,swelling Vancomycin Itching, Other: See Comments, Rash red all over Other reaction(s): Other: See Comments red all over Vioxx [Rofecoxib] GI Upset Wellbutrin [Bupropi* Intolerance nightmares CURRENT OUTPATIENT MEDICATIONS lancets (TRUEPLUS LANCETS) 30 gauge Test four times daily Dx: 250.02 blood sugar diagnostic (BLOOD GLUCOSE TEST) test strip Test blood sugars up to 4 times daily as directed. Dx: Type 2 DM - Controlled E11.9 Insulin: Yes. Trumetrix brand metFORMIN ER (GLUCOPHAGE XR) 500 mg 24 hr tablet Take 1 tablet by mouth twice daily. DULoxetine (CYMBALTA) 60 mg capsule Take 1 capsule by mouth once daily. spironolactone (ALDACTONE) 50 mg tablet Take 1 tablet by mouth once daily. potassium chloride (K-TAB) 10 mEq tablet Take 1 tablet by mouth once daily. furosemide (LASIX) 80 mg tablet Take 1 tablet by mouth twice daily. ARIPiprazole (ABILIFY) 10 mg tablet Take 1 tablet by mouth once daily. pravastatin (PRAVACHOL) 20 mg tablet Take 1 tablet by mouth daily at bedtime. traZODone (DESYREL) 100 mg tablet Take 1 tablet by mouth daily at bedtime. methocarbamol (ROBAXIN) 500 mg tablet Take 1 tablet by mouth twice daily. Cholecalciferol, Vitamin D3, 125 mcg (5,000 unit) cap Take 1 capsule by mouth once daily. ascorbic acid (VITAMIN C ORAL) Take 1 tablet by mouth once daily. nystatin (MYCOSTATIN) powder Apply 1 application to affected area four times daily. Insulin Maljamar, Disposable, (BD ULTRA-FINE MADI PEN NEEDLE) 32 gauge x Use one needle for each dose. 2/day. famotidine (PEPCID) 40 mg tablet Take 1 tablet by mouth once daily. nystatin (MYCOSTATIN) cream Apply 1 application to affected area twice daily. polyethylene glycol 3350 (MIRALAX, GLYCOLAX) 17 gram/dose powder Take 17 g by mouth once daily. Blood-Glucose Meter monitoring kit Glucose Meter of Choice - Kit - Dx: Type 2 DM - Controlled E11.9Use twice daily as directed HYDROcodone-acetaminophen (NORCO) 5-325 mg per tablet Take 1 tablet by mouth twice daily as needed for pain for up to 3 days. calcitriol (ROCALTROL) 0.5 mcg capsule Take 1 capsule by mouth twice daily for 14 days. ibuprofen (MOTRIN) 800 mg tablet Take 1 tablet by mouth every 8 hours as needed (FOR PAIN. TAKE WITH FOOD). insulin glargine (LANTUS SOLOSTAR U-100 INSULIN) 100 unit/mL (3 mL) Inject 25 Units subcutaneously twice daily. FAMILY HISTORY Problem Relation Age of Onset Hypertension Mother Heart Mother concha stroke Diabetes Mother Stroke Mother Massive- Arthritis Mother Osteoarthritis Hypertension Father COPD Father Hypertension Sister 2 Hypertension Brother 3 Heart Brother triple bypass at 48 Heart Maternal Aunt Heart Maternal Uncle Diabetes Brother 3 Brother's with diabetes Diabetes Sister Arthritis Sister Arthritis Brother Arthritis Brother Arthritis Brother Social History Tobacco Use Smoking status: Former Smoker Packs/day: 1.00 Years: 15.00 Pack years: 15.00 Types: Cigarettes Quit date: 12/20/1994 Years since quittin.7 Smokeless tobacco: Never Used Vaping Use Vaping Use: Never used Substance Use Topics Alcohol use: No Drug use: No REVIEW OF SYSTEMS: GENERAL: No weight loss, malaise or fevers. RESPIRATORY: Negative for cough, hemoptysis, wheezing, COPD, dyspnea or shortness of breath CARDIOVASCULAR: Negative for chest pain, leg swelling, HTN, CHF or palpitations. GI: No nausea, vomiting, or diarrhea. Negative for incontinence. MUSCULOSKELETAL: Positive for bilat knee pain (chronic) SKIN: Positive for wound, right posterior thigh HEMATOLOGY/LYMPHOLOGY: Negative for prolonged bleeding, bruising easily or swollen nodes NEURO: No history of headaches, syncope, paralysis, seizures or tremors PHYSICAL EXAM: BP 131/66 / Pulse 98 / Resp 20 / Temp 97.3 F / SpO2 94% General appearance: Well appearing, alert, in no acute distress, well-hydrated, well nourished and Morbidly obese Skin: Ecchymotic/dusky discoloration of bilat posterior thigh areas in a follicular pattern. Positive varicosities bilat posterior upper thighs. Wound, right posterior thigh. (see wound assessment) Head: Normocephalic, no masses, lesions, tenderness or abnormalities Lungs: Respirations even and unlabored Abdomen: morbid obese Musculoskeletal: No joint swelling, deformity, or tenderness, Joint pain: Knees Neuro: Oriented X 3. Wheelchair bound, transfers with assist WOUND ASSESSMENT Wound 8: Location: right posterior thigh Type: pressure injury Stage: 3 Exposed structure:NA Progress: initial Wound measurements (cm): 0.9 x 1.0 x 0.1 Full thickness- Yes Tunneling/undermining: none Wound tissue color: 20% slough, 80% red Periwound tissue: dry, intact and blanchable dusky discoloration, soft, no induration, no fluctuance Drainage: serosanguinous, medium Drainage odor: none Wound 7: Location: left posterior thigh Type: pressure injury Stage: 3 Exposed structure:NA Progress: closed Wound measurements (cm): 0 Full thickness- Yes Tunneling/undermining: none Wound tissue color: epithelial Periwound tissue: dry, intact Drainage: none Drainage odor: n/a PROCEDURE: Excisional Sharp Debridement- right posterior thigh A time out was performed immediately prior to procedure start with the WALLPAPER REMOVER STEAM and team , correctly identifying the patient name, date of , procedure, anatomy, patient position, safety precautions,and procedure-specific equipment needs. The procedure was explained to the patient including the risks, benefits and alternatives. The risks, including but not limited to infection and bleeding, were reviewed by the performing provider andthe patient agrees to undergo the procedure. Written consent was obtained . With appropriate consent the wound was sharply debrided down to and including subcutaneous tissue Total tissue debrided Less than 20 sq.cm Using a sterile currette the wound was debrided. Patient required pre-medication: Lidocaine 2% gel Patient expressed pain during procedure: no Scale: 0 EBL: minimal Wound measurement prior to debridement: 0.9 x 1.0 x 0.1 Wound measurement post debridement: 1.0 x 1.0 x 0.4 Type of tissue debrided: ( slough, necrotic, devitalized) Tissue at wound bed after debridment: red Dressing applied after debridement: yes Patient tolerated procedure well without apparent complications. DATA PHOTOGRAPHY:yes A photo was taken of the patient's wound(s). Photos can be found under the [facility] images tab on [facility]. The purpose of the photo(s) is to optimize the patient's medical care and allow a visual aid to their wound evaluation and progress. The photo(s) are not intended for publication, education, or research. If the use of the photo is desired in any additional way, other than for the above outlined purposes, then an additional consentfor the intended use will need to be obtained by the requesting provider. Photo was taken of: right posterior thigh wound Verbal consent was obtained: yes WBC Date Value 08/12/2021 13.33 k/uL 07/06/2021 7.09 k/uL 04/22/2021 5.7 K/CUMM 04/04/2021 4.65 k/uL 12/24/2020 5.33 k/uL Hemoglobin Date Value 08/12/2021 12.6 g/dL 07/06/2021 13.9 g/dL 04/22/2021 12.4 G/DL 04/04/2021 10.1 g/dL 12/24/2020 13.4 g/dL PT INR (no units) Date Value 01/13/2019 1.0 Sodium (mmol/L) Date Value 08/12/2021 141 07/06/2021 139 04/04/2021 138 01/12/2021 139 12/24/2020 138 Potassium (mmol/L) Date Value 08/12/2021 4.2 07/06/2021 4.3 04/04/2021 4.6 01/12/2021 4.6 12/24/2020 4.7 CO2 (mmol/L) Date Value 08/12/2021 30 07/06/2021 31 04/04/2021 30 01/12/2021 28 12/24/2020 27 BUN (mg/dL) Date Value 08/12/2021 15 07/06/2021 18 04/04/2021 14 01/12/2021 18 12/24/2020 19 AST (U/L) Date Value 07/06/2021 12 01/12/2021 16 12/24/2020 12 12/13/2020 16 ALT (U/L) Date Value 07/06/2021 11 01/12/2021 15 12/24/2020 14 12/13/2020 14 Bilirubin, Total (mg/dL) Date Value 07/06/2021 0.4 01/12/2021 0.4 12/24/2020 0.4 12/13/2020 0.4 Alkaline Phosphatase (U/L) Date Value 07/06/2021 129 01/12/2021 144 12/24/2020 135 12/13/2020 147 WSR (mm/hr) Date Value 12/13/2020 16 10/20/2017 27 11/17/2015 16 08/10/2015 22 07/26/2015 19 MICROBIOLOGY: Reviewed IMAGING: Reviewed IMPRESSION/RECOMMENDATIONS The patient's age, altered mobility, and other co morbidities are likely to impact wound and skin integrity Additional impediments to healing Diabetic: Yes Anticoagulation: No Antibiotics: No Steroids: No (L89.213) Pressure injury of right thigh, stage 3 (HCC) (L89.223) Pressure injury of left thigh, stage 3 (HCC) Comment: Left thigh wound healed. New right posterior thigh wound; no s/s infection. Plan: - Cleanse right posterior thigh wound and periwound area with soap and water. Pat dry. Vashe soak to wound. Apply calcium alginate to wound. Cover with 4x4 Marcus SAP dressing. Change dressing 3x/weekand prn. - No further tx needed to left posterior thigh. 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 Monitor for changes. - Follow up in wound center in 3 weeks (R53.81) Physical debility Comment: Pt requires some assistance with ADL care and mobility; physical limitations and limited mobility d/t chronic pain (knees), body habitus, and co morbidities. Plan: - Frequent weight shifts when seated - Pressure reduction devices as needed ---pt has offloading cushion for chair - offload as able and tolerated - Continue aggressive nutritional support for optimal wound healing I discussed the plan in detail with the patient and the patient verbalizes understanding and is in agreement. My previous progress note dated 08/29/2021 was copied forward, updated where appropriate, and reflective of current medical decision making today, 09/21/2021. Keya Aparicio APRN, LIZZIE, CWS Certified [employer] September 21, 2021 documented in this encounterPremier [facility]-03-[facility]22 Instructions* Patient Instructions* Winnie Ahuja RN - 09/21/2021 3:28 PM EDT WOUND CARE INSTRUCTIONS- Wilton Khan Wound location: posterior left thigh cluster wounds [facility]: FAX: [phone] contract administration manager: Ramya Kenan phone: [phone] Wound location: Left posterior thigh - Gather supplies - Prepare a clean work surface such as new paper towel or newly cleaned towel - Plastic garbage bag for old dressing - Wash your hands with soap and water before and after wound care. Cleanse wounds with soap & water or Vashe soak - paint yoon-wound with skin prep Right posterior medial thigh: - Apply calcium alginate to the wound bed - Cover with 4x4 island dressing (i.e. Marcus SAP silicone border dressing) - Change your dressing three times per week and as needed to maintain a clean, dry, & intact dressing - Avoid sitting as much as possible - turning side to side To give your wound the best chance to heal: - Eat three balanced meals daily focusing on the protein - Control your blood sugar. Keep blood sugar less than 200 - Complete your wound care instructions as ordered - Vitamin C 500 mg twice daily - Multiple Vitamin Daily - Drink a protein shake daily - Premiere Clear or Glucerna for Diabetic patients, Nepro for renal patients and premiere for non-renal and non-diabetic patients Report any of the following signs and symptoms of infection to the Wound Center at [phone] or go to the Emergency Department: Fever or chills Increased drainage Green or yellow drainage Foul odor Increased pain Hardness around the wound Redness, warmth or swelling of the surrounding tissue Color change to the wound To give your wound the best chance to heal: - Eat three balanced meals daily focusing on the protein - Control swelling by elevating the extremity above your heart - Control your blood sugar. Keep blood sugar less than 200 - Complete your wound care instructions - Vitamin C 500 mg twice daily - Multiple Vitamin Daily - Drink a protein shake daily Report any of the following changes [phone] or go to the Emergency Department: Fever or chills Increased drainage Green or yellow drainage Foul odor Increased pain Hardness around the wound Redness, warmth or swelling of the surrounding tissue Color change to the wound Plan: 1. Follow-up in the wound center with Keya in 3 weeks - if the wounds are healed, you may call and cancel appointment 2. Continue aggressive nutritional support for optimal wound healing & frequent position changes to relieve pressure on the buttocks Avoid laying on backside Avoid sitting as much as possible Bring your chair cushion with you to your next wound center visit Home care to order wound care supplies Avoid scooting or dragging your bottom Keya Aparicio CNP/ness/josé antonio documented in this encounterPremier Health [facility]08-03-2022 Nurse Note* Winnie Ahuja RN - 09/21/2021 3:26 PM EDT Nursing Documentation Pertinent Medical History: DM, HTN, depression, DJD, CHF, COPD, hyperparathyroidism Wound Etiology according to patient: wounds were healed for a month after going to wound center in [place]; re-occurred June 2020 unsure how they occur Patient arrived via: [email or web address] Home Care Company/Nursing Facility: [facility] FAX: [phone] contract administration manager: Ramya Grayson [phone] Consent captured for debridement per Keya Aparicio CNP will be good until 2021 Anticoagulant Therapy: none ACTIVE CARE PER PROVIDER: Keya Aparicio CNP WOUND #1 - 6 previously healed WOUND ASSESSMENT: Refer to Provider's Wound Assessment Note VASCULAR ASSESSMENT BY PROVIDER: N/A CHF History: yes per patient EDEMA: N/A - Wound on posterior left thigh Right foot: Right calf: Left foot : Left Calf: Other: MEASUREMENTS: N/A - wounds on posterior Right thigh Right Calf: Right Ankle: Left Calf: Left Ankle: Length: WOUND PHOTOGRAPHY: NO DEBRIDEMENT PROCEDURE BY PROVIDER: Anesthetic Used: Lido gel 2% applied per Macarena Grace RN Wound #8 Other procedure: N/A Specimen collected: N/A WOUND TREATMENT PER MD ORDER: WOUND # 7 LOCATION: posterior left thigh (NEW 08/29/21) Closed 09/21/32 WOUND # 8 LOCATION: Posterior Right Thigh (NEW 09/21/21) L: 0.9 cm x W: 1.0 cm x D: 0.1 cm DEBRIDEMENT by provider: sq Post debridement measurements: L: 1.0 cm x W: 1.0 cm x D: 0.4 cm Cleansed with: vashe' Applied to yoon-wound skin: skin prep Applied to wound bed: Calcium alginate Covered and secured with: Marcus sap 4x4 09/21/32: Threatened area back of Right Thigh L: 8.0 cm x W: 7.0 cm x D: 0 cm COMPRESSION: N/A SPECIAL NEEDS: Coordination of care - [facility]; aid service ONLY. [facility] - AID SERVICE ONLY FAX: [phone] Emotional support N/A OR set-up N/A Sales Project Engineer N/A Incontinence needs N/A DISCHARGED in stable condition to: Home via wheelchair Global surgical period dates if applicable: N/A Plan: 1. Follow-up in the wound center with Keya in 3 weeks - if the wounds are healed, you may call and cancel appointment 2. Continue aggressive nutritional support for optimal wound healing & frequent position changes to relieve pressure on the buttocks Avoid laying on backside Avoid sitting as much as possible Bring your chair cushion with you to your next wound center visit Home care to order wound care supplies Avoid scooting or dragging your bottom EDUCATION: The patient/family was instructed how to cleanse the wound(s). Visual demonstration on how to applythe dressing with teach back method. Signs & symptoms of infection were reviewed: Increased redness, swelling, pain, green/yellow drainage, fever and/or chills would all need to be evaluated by a Physician. Patient received typed home-going wound care instructions and has expressed intent to comply. OTHER EDUCATION: wound care and off-loading reviewed with patient. Education performed regarding lymphedema/edema: Elevation of extremity above the heart for 30 minutes three times daily and as needed Exercise such as writing the ABC's with your toes in the air, walking and/or calf pumps Wearing compression as ordered by provider Diet controlling of sodium as instructed by provider Use of medication to help control edema. UNIVERSAL PROTOCOL / SAFETY CHECKLIST Procedure to be Performed: sharp debridement to posterior thigh wounds Sign In: 1520 A Moment of CARE was completed. Personnel directly involved with the procedure wore the appropriate PPE (Personal Protective Equipment). Patient/Surrogate Stated/Verified: PATIENT VERIFIED(optional for EMERGENT procedures): Patient name, Date of , Relevant allergies and The intended procedure Time Out Communication: [id number] Intended patient and procedure match the source documents. Consent documented and matches the intended procedure. Sign Out: 1600 SIGN OUT (optional for EMERGENT procedures): No specimen collected. Current HBOT Status: Active or Complete - see screening below WOUND CENTER HYPERBARIC OXYGEN THERAPY SCREENING 1. Is the patient diabetic? (If No, skip to question 5) Yes 2. Does the patient have a lower extremity wound? YES 3. Is there exposed/involved tendon or bone? No 4. Has the wound been present for 30 days? no If Yes to ALL questions above, consult the Hyperbaric Center 5. Has the patient been diagnosed with osteomyelitis? No 6. Has the patient had a previous skin graft or flap at the wound? No 7. Has the patient had or been offered vascular intervention/evaluation? No 8. Does the patient have a wound at an amputation site? No 9. Has the patient had radiation therapy at the site of the problem? No If Yes to ANY of questions 5-9, consult the Hyperbaric Center documented in this encounterPremier [facility]07-26-2022 Miscellaneous Notes* Telephone Encounter - Sanjay Rondon RN - 09/13/2021 8:21 AM EDT Phoned patient and given provider's message below with verbalized understanding. * Telephone Encounter - Nehemiah Herbert MD - 09/12/2021 5:08 PM EDT Her vit d and calcium are ok, pth is stable. Sugars are slightly higher. Increase metformin to 500 mg po bid and send list of sugars in one week documented in this encounterPremier Health [facility]07-25-2022 Miscellaneous Notes* Telephone Encounter - Leida Nava Ma - 09/12/2021 4:57 PM EDT Last office visit: 08/12/21 F/u scheduled: 11/17/21 Leida Nava Ma * Telephone Encounter - Dimple Ramirez Pss - 09/12/2021 4:41 PM EDT Patient has been identified by name and date of : Yes Pending Prescriptions Disp Refills LANCETS 30 GAUGE 450 Each 3 Sig: Test four times daily Dx: 250.02 DWAINE: No BLOOD GLUCOSE TEST STRIPS 360 Strip 3 Sig: Test blood sugars up to 4 times daily as directed. Dx: Type 2 DM - Controlled E11.9 Insulin: Yes. Trumetrix brand DWAINE: No RX INSTRUCTIONS: Patient aware RX will be sent to pharmacy. No need to notify patient. Dimple Turcios documented in this encounterPremier Health [facility]07-13-2022 Miscellaneous Notes* Telephone Encounter - Joi Garcia LPN - 08/31/2021 10:53 AM EDT Refill remains at pharmacy. TC to patient, left voicemail to let patient know * Telephone Encounter - Narda Fournier - 08/31/2021 9:50 AM EDT Patient has been identified by name and date of : Yes Pending Prescriptions Disp Refills ARIPIPRAZOLE 10 MG TABLET 90 tablet 1 Sig: Take 1 tablet by mouth once daily. DWAINE: No RX INSTRUCTIONS: Patient aware RX will be sent to pharmacy. No need to notify patient. Narda Fournier documented in this encounterPremier Health At[facility] Center07-11-2022 NoteHNO ID: [id number] Author: Keya Aparicio APRN.OIL FIELD ROUSTABOUT Service: ? Author Type: Nurse Practitioner Type: Progress Notes Filed: 08/29/2021 12:14 PM Note Text: WOUND CENTER PROGRESS NOTE PATIENT NAME: Wilton Khan DATE OF FOLLOW UP: 08/29/2021 REASON FOR FOLLOW UP: right posterior thigh wound HISTORY OF PRESENT ILLNESS: Wilton Khan is a 61 year old y/o female w/ Hx DM, HTN, CHF, COPD, DJD, morbid obesity, who presents for wound assessment of right thigh wound. She has much difficulty with standing and ambulation d/t chronic bilat knee pain. She sits and sleeps in a recliner chair. She has a gel offloading cushion for her chair. She continues with physical therapy at home for strengthening. Pt has assistance of [facility] once a week. Her sisters help her with wound care other days needed. She reports a new wound on her left posterior thigh she noticed today. S/p parathyroidectomy 07/20/2021 Location: bilat posterior thigh Onset: June 2020, recurrent Aggravating factors: Debility, Diabetes mellitus, Immobility, Positioning and Pressure Wound etiology: Pressure Associated pain with wound: Yes, mild Relieving factors for wound pain: Positioning and Wound care Treatments: Current: Triad, Marcus SAP Past: Desitin, AANDD ointment, alginate w/ silver, Triad, Promogran PAST MEDICAL HISTORY Diagnosis Date - Abnormal glandular Papanicolaou smear of cervix 05/30/05 ABNL GLANDULAR PAP SMEAR CERVIX - Acute gastritis without mention of hemorrhage - Anxiety state, unspecified - Arrhythmia - Chronic cholecystitis - Chronic obstructive pulmonary disease (COPD) ([facility]) - Congestive heart failure ([facility]) 10/03/2011 - Diabetes ([facility]) - diabetes II 2010 - Diaphragmatic hernia without mention of obstruction or gangrene - Dysthymic disorder Depression (non-psychotic) - Esophageal reflux - Essential hypertension, benign - Generalized OA - Hyperprolactinemia ([facility]) 10/13/2005 - Localized osteoarthrosis not specified whether primary or secondary, lower leg - Major depressive disorder, recurrent episode - Mucous polyp of cervix 07/19/05 - Other and unspecified anterior pituitary hyperfunction ([facility]) 10/13/05 elevated prolactin level-was normal in 2011 - PMH - PAST MEDICAL HISTORY OF sleep apnea - PMH - PAST MEDICAL HISTORY OF sleep apnea - SVT (supraventricular tachycardia) ([facility]) - 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 - Type 2 diabetes mellitus without complication, with long-term current use of insulin ([facility]) 12/22/2013 PAST SURGICAL HISTORY Procedure Laterality Date - BIOPSY CERVIX SINGLE/MULT/EXCISION OF LESION SPX 07/19/05 endocervical polyp - COLONOSCOPY FLX DX W/COLLJ SPEC WHEN PFRMD 01/09/2012 Colonoscopy repeat 10 years - COLPOSCOPY CERVIX UPPER/ADJACENT VAGINA Colposcopy - EGD TRANSORAL BIOPSY SINGLE/MULTIPLE 01/16/07 - ESOPHAGOGASTRODUODENOSCOPY TRANSORAL DIAGNOSTIC 01/09/2012 EGD - HERNIA REPAIR HX 11/2015 ventral - HYSTEROSCOPY DX 12/17/2014 [facility] - LAPS SURG CHOLECYSTECTOMY W/CHOLANGIOGRAPHY 05/15/08 ALLERGIES ALLERGIES Allergen Reactions - Lyrica [Pregabalin] Anaphylaxis Not sure if accurate. Can take gabapentin. Patient is unsure of reaction. - Accupril [Quinapril* Intolerance dizziness - Actos [Pioglitazone] Swelling - Amlodipine Swelling Leg edema - Atenolol Swelling - Atorvastatin Intolerance Muscle cramps and weakness - Celebrex [Celecoxib] Swelling - Effexor [Venlafaxin* swelling high blood pressure - Januvia [Sitaglipti* GI Upset, Other: See Comments Patient states she couldn't eat - Metoprolol Swelling - Mobic [Meloxicam] GI Upset - Prozac [Fluoxetine * Intolerance tremor - Remeron [Mirtazapin* Rash - Risperidone Mental Status Change - Seroquel [Quetiapin* hypertension,swelling - Vancomycin Itching, Other: See Comments, Rash red all over Other reaction(s): Other: See Comments red all over - Vioxx [Rofecoxib] GI Upset - Wellbutrin [Bupropi* Intolerance nightmares CURRENT OUTPATIENT MEDICATIONS HYDROcodone-acetaminophen (NORCO) 5-325 mg per tablet Take 1 tablet by mouth twice daily as needed for pain for up to 3 days. DULoxetine (CYMBALTA) 60 mg capsule Take 1 capsule by mouth once daily. spironolactone (ALDACTONE) 50 mg tablet Take 1 tablet by mouth once daily. potassium chloride (K-TAB) 10 mEq tablet Take 1 tablet by mouth once daily. furosemide (LASIX) 80 mg tablet Take 1 tablet by mouth twice daily. ARIPiprazole (ABILIFY) 10 mg tablet Take 1 tablet by mouth once daily. pravastatin (PRAVACHOL) 20 mg tablet Take 1 tablet by mouth daily at bedtime. traZODone (DESYREL) 100 mg tablet Take 1 tablet by mouth daily at bedtime. methocarbamol (ROBAXIN) 500 mg tablet Take 1 tablet by mouth twice daily. Cholecalciferol, Vitamin D3, 125 mcg (5,000 unit) cap Take 1 capsule by mouth once daily. ascorbic acid (VITAMIN C ORAL) Take 1 tablet by mouth once daily. n (more content not included)...[facility] [id number] Nurse Note* Christina Galloway RN - 08/29/2021 10:37 AM EDT Nursing Documentation Pertinent Medical History: DM, HTN, depression, DJD, CHF, COPD, hyperparathyroidism Wound Etiology according to patient: wounds were healed for a month after going to wound center in [place]; re-occurred June 2020 unsure how they occur Patient arrived via: [facility]Nursing Facility: [facility] FAX: [phone] contract administration manager: Ramya Grayson [phone] Consent captured for debridement per Keya Aparicio CNP will be good until 2021 Anticoagulant Therapy: none ACTIVE CARE PER PROVIDER: Keya Aparicio CNP WOUND #1 - 4 previously healed WOUND # 6 LOCATION: Left Posterior thigh (NEW 06/08/21) Closed 07/13/21 WOUND ASSESSMENT: Refer to Provider's Wound Assessment Note VASCULAR ASSESSMENT BY PROVIDER: N/A CHF History: yes per patient EDEMA: N/A - Wound on posterior left thigh Right foot: Right calf: Left foot : Left Calf: Other: MEASUREMENTS: N/A - wounds on posterior left thigh Right Calf: Right Ankle: Left Calf: Left Ankle: Length: WOUND PHOTOGRAPHY: NO DEBRIDEMENT PROCEDURE BY PROVIDER: Anesthetic Used: Lido gel 2% applied per Shira Soliman RN Wound #6 Other procedure: N/A Specimen collected: N/A WOUND TREATMENT PER MD ORDER: WOUND # 5 LOCATION: Right posterior thigh cluster - buttocks Closed 08/29/21 WOUND # 7 LOCATION: posterior left thigh (NEW 08/29/21) L: 0.5 cm x W: 0.3 cm x D: 0.2 cm DEBRIDEMENT: SQ Post debridement measurements if applicable: L: 0.5 cm x W: 0.4 cm xD: 0.2 cm Cleansed with: vashe' Applied to yoon-wound skin: Triad Applied to wound bed: triad Covered and secured with: Marcus sap 4x4 COMPRESSION: N/A SPECIAL NEEDS: Coordination of care - [facility] manages wound care [facility]; aid service ONLY. [facility] - AID SERVICE ONLY FAX: [phone] Emotional support N/A OR set-up N/A Sales Project Engineer N/A Incontinence needs N/A DISCHARGED in stable condition to: Home via wheelchair Global surgical period dates if applicable: N/A Plan: 1. Follow-up in the wound center with Keya in 3 weeks - if the wounds are healed, you may call and cancel appointment 2. Continue aggressive nutritional support for optimal wound healing & frequent position changes to relieve pressure on the buttocks Avoid laying on backside Avoid sitting as much as possible Bring your chair cushion with you to your next wound center visit Home care to order wound care EDUCATION: The patient/family was instructed how to cleanse the wound(s). Visual demonstration on how to applythe dressing with teach back method. Signs & symptoms of infection were reviewed: Increased redness, swelling, pain, green/yellow drainage, fever and/or chills would all need to be evaluated by a Physician. Patient received typed home-going wound care instructions and has expressed intent to comply. OTHER EDUCATION: wound care and off-loading reviewed with patient. Education performed regarding lymphedema/edema: Elevation of extremity above the heart for 30 minutes three times daily and as needed Exercise such as writing the ABC's with your toes in the air, walking and/or calf pumps Wearing compression as ordered by provider Diet controlling of sodium as instructed by provider Use of medication to help control edema. UNIVERSAL PROTOCOL / SAFETY CHECKLIST Procedure to be Performed: sharp debridement to posterior thigh wounds Sign In: 1045 A Moment of CARE was completed. Personnel directly involved with the procedure wore the appropriate PPE (Personal Protective Equipment). Patient/Surrogate Stated/Verified: PATIENT VERIFIED(optional for EMERGENT procedures): Patient name, Date of , Relevant allergies and The intended procedure Time Out Communication: 1042 Intended patient and procedure match the source documents. Consent documented and matches the intended procedure. Sign Out: 1047 SIGN OUT (optional for EMERGENT procedures): No specimen collected. Christina Galloway RN/lena Current HBOT Status: Active or Complete - see screening below WOUND CENTER HYPERBARIC OXYGEN THERAPY SCREENING 1. Is the patient diabetic? (If No, skip to question 5) Yes 2. Does the patient have a lower extremity wound? YES 3. Is there exposed/involved tendon or bone? No 4. Has the wound been present for 30 days? no If Yes to ALL questions above, consult the Hyperbaric Center 5. Has the patient been diagnosed with osteomyelitis? No 6. Has the patient had a previous skin graft or flap at the wound? No 7. Has the patient had or been offered vascular intervention/evaluation? No 8. Does the patient have a wound at an amputation site? No 9. Has the patient had radiation therapy at the site of the problem? No If Yes to ANY of questions 5-9, consult the Hyperbaric Center documented in this encounterPremier Health [facility]07-11-2022 Instructions* Patient Instructions* Christina Galloway RN - 08/29/2021 10:31 AM EDT WOUND CARE INSTRUCTIONS- Wilton Khan Wound location: posterior left thigh cluster wounds [facility]: FAX: [phone] contract administration manager: Ramya Grayson phone: [phone] Wound location: Left posterior thigh - Gather supplies - Prepare a clean work surface such as new paper towel or newly cleaned towel - Plastic garbage bag for old dressing - Wash your hands with soap and water before and after wound care. Cleanse wounds with soap & water or Vashe soak - paint yoon-wound with skin prep - Apply triad cream to the wound bed - Cover with 4x4 island dressing (i.e. Marcus SAP silicone border dressing) - Change your dressing three times per week and as needed to maintain a clean, dry, & intact dressing - Avoid sitting as much as possible - turning side to side -Patient has gel mattress at home To give your wound the best chance to heal: - Eat three balanced meals daily focusing on the protein - Control your blood sugar. Keep blood sugar less than 200 - Complete your wound care instructions as ordered - Vitamin C 500 mg twice daily - Multiple Vitamin Daily - Drink a protein shake daily - Premiere Clear or Glucerna for Diabetic patients, Nepro for renal patients and premiere for non-renal and non-diabetic patients Report any of the following signs and symptoms of infection to the Wound Center at [phone] or go to the Emergency Department: Fever or chills Increased drainage Green or yellow drainage Foul odor Increased pain Hardness around the wound Redness, warmth or swelling of the surrounding tissue Color change to the wound To give your wound the best chance to heal: - Eat three balanced meals daily focusing on the protein - Control swelling by elevating the extremity above your heart - Control your blood sugar. Keep blood sugar less than 200 - Complete your wound care instructions - Vitamin C 500 mg twice daily - Multiple Vitamin Daily - Drink a protein shake daily Report any of the following changes [phone] or go to the Emergency Department: Fever or chills Increased drainage Green or yellow drainage Foul odor Increased pain Hardness around the wound Redness, warmth or swelling of the surrounding tissue Color change to the wound Plan: 1. Follow-up in the wound center with Keya in 3 weeks - if the wounds are healed, you may call and cancel appointment 2. Continue aggressive nutritional support for optimal wound healing & frequent position changes to relieve pressure on the buttocks Avoid laying on backside Avoid sitting as much as possible Bring your chair cushion with you to your next wound center visit Home care to order wound care supplies Keya Aparicio CNP/jose maria/lena documented in this encounterPremier Health [facility]07-11-2022 History of Present illness Narrative* Keya Aparicio APRN.LIZZIE - 08/29/2021 10:30 AM EDT Images from the original note were not included. WOUND CENTER PROGRESS NOTE PATIENT NAME: Wilton Khan DATE OF FOLLOW UP: 08/29/2021 REASON FOR FOLLOW UP: right posterior thigh wound HISTORY OF PRESENT ILLNESS: Wilton Khan is a 61 year old y/o female w/ Hx DM, HTN, CHF, COPD, DJD, morbid obesity, who presents for wound assessment of right thigh wound. She has much difficulty with standing and ambulation d/t chronic bilat knee pain. She sits and sleeps in a recliner chair. She has a gel offloading cushion for her chair. She continues with physical therapy at home for strengthening. Pt has assistance of [facility] once a week. Her sisters help her with wound care other days needed. She reports a new wound on her left posterior thigh she noticed today. S/p parathyroidectomy 07/20/2021 Location: bilat posterior thigh Onset: June 2020, recurrent Aggravating factors: Debility, Diabetes mellitus, Immobility, Positioning and Pressure Wound etiology: Pressure Associated pain with wound: Yes, mild Relieving factors for wound pain: Positioning and Wound care Treatments: Current: Triad, Marcus SAP Past: Desitin, A&D ointment, alginate w/ silver, Triad, Promogran PAST MEDICAL HISTORY Diagnosis Date Abnormal glandular Papanicolaou smear of cervix 05/30/05 ABNL GLANDULAR PAP SMEAR CERVIX Acute gastritis without mention of hemorrhage Anxiety state, unspecified Arrhythmia Chronic cholecystitis Chronic obstructive pulmonary disease (COPD) (H[facility]) Congestive heart failure ([facility]) 10/03/2011 Diabetes ([facility]) diabetes II 2010 Diaphragmatic hernia without mention of obstruction or gangrene Dysthymic disorder Depression (non-psychotic) Esophageal reflux Essential hypertension, benign Generalized OA Hyperprolactinemia ([facility]) 10/13/2005 Localized osteoarthrosis not specified whether primary or secondary, lower leg Major depressive disorder, recurrent episode Mucous polyp of cervix 07/19/05 Other and unspecified anterior pituitary hyperfunction ([facility]) 10/13/05 elevated prolactin level-was normal in 2011 PMH - PAST MEDICAL HISTORY OF sleep apnea PMH - PAST MEDICAL HISTORY OF sleep apnea SVT (supraventricular tachycardia) ([facility]) 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 Type 2 diabetes mellitus without complication, with long-term current use of insulin ([facility]) 12/22/2013 PAST SURGICAL HISTORY Procedure Laterality Date BIOPSY CERVIX SINGLE/MULT/EXCISION OF LESION SPX 07/19/05 endocervical polyp COLONOSCOPY FLX DX W/COLLJ SPEC WHEN PFRMD 01/09/2012 Colonoscopy repeat 10 years COLPOSCOPY CERVIX UPPER/ADJACENT VAGINA Colposcopy EGD TRANSORAL BIOPSY SINGLE/MULTIPLE 01/16/07 ESOPHAGOGASTRODUODENOSCOPY TRANSORAL DIAGNOSTIC 01/09/2012 EGD HERNIA REPAIR HX 11/2015 ventral HYSTEROSCOPY DX 12/17/2014 [facility] LAPS SURG CHOLECYSTECTOMY W/CHOLANGIOGRAPHY 05/15/08 ALLERGIES ALLERGIES Allergen Reactions Lyrica [Pregabalin] Anaphylaxis Not sure if accurate. Can take gabapentin. Patient is unsure of reaction. Accupril [Quinapril* Intolerance dizziness Actos [Pioglitazone] Swelling Amlodipine Swelling Leg edema Atenolol Swelling Atorvastatin Intolerance Muscle cramps and weakness Celebrex [Celecoxib] Swelling Effexor [Venlafaxin* swelling high blood pressure Januvia [Sitaglipti* GI Upset, Other: See Comments Patient states she couldn't eat Metoprolol Swelling Mobic [Meloxicam] GI Upset Prozac [Fluoxetine * Intolerance tremor Remeron [Mirtazapin* Rash Risperidone Mental Status Change Seroquel [Quetiapin* hypertension,swelling Vancomycin Itching, Other: See Comments, Rash red all over Other reaction(s): Other: See Comments red all over Vioxx [Rofecoxib] GI Upset Wellbutrin [Bupropi* Intolerance nightmares CURRENT OUTPATIENT MEDICATIONS HYDROcodone-acetaminophen (NORCO) 5-325 mg per tablet Take 1 tablet by mouth twice daily as needed for pain for up to 3 days. DULoxetine (CYMBALTA) 60 mg capsule Take 1 capsule by mouth once daily. spironolactone (ALDACTONE) 50 mg tablet Take 1 tablet by mouth once daily. potassium chloride (K-TAB) 10 mEq tablet Take 1 tablet by mouth once daily. furosemide (LASIX) 80 mg tablet Take 1 tablet by mouth twice daily. ARIPiprazole (ABILIFY) 10 mg tablet Take 1 tablet by mouth once daily. pravastatin (PRAVACHOL) 20 mg tablet Take 1 tablet by mouth daily at bedtime. traZODone (DESYREL) 100 mg tablet Take 1 tablet by mouth daily at bedtime. methocarbamol (ROBAXIN) 500 mg tablet Take 1 tablet by mouth twice daily. Cholecalciferol, Vitamin D3, 125 mcg (5,000 unit) cap Take 1 capsule by mouth once daily. ascorbic acid (VITAMIN C ORAL) Take 1 tablet by mouth once daily. nystatin (MYCOSTATIN) powder Apply 1 application to affected area four times daily. ibuprofen (MOTRIN) 800 mg tablet Take 1 tablet by mouth every 8 hours as needed (FOR PAIN. TAKE WITH FOOD). metFORMIN ER (GLUCOPHAGE XR) 500 mg 24 hr tablet Take 1 tablet by mouth once daily. insulin glargine (LANTUS SOLOSTAR U-100 INSULIN) 100 unit/mL (3 mL) Inject 25 Units subcutaneously twice daily. famotidine (PEPCID) 40 mg tablet Take 1 tablet by mouth once daily. nystatin (MYCOSTATIN) cream Apply 1 application to affected area twice daily. polyethylene glycol 3350 (MIRALAX, GLYCOLAX) 17 gram/dose powder Take 17 g by mouth once daily. calcitriol (ROCALTROL) 0.5 mcg capsule Take 1 capsule by mouth twice daily for 14 days. Insulin Maljamar, Disposable, (BD ULTRA-FINE MADI PEN NEEDLE) 32 gauge x Use one needle for each dose. 2/day. blood sugar diagnostic (BLOOD GLUCOSE TEST) test strip Test blood sugars up to 4 times daily as directed. Dx: Type 2 DM - Controlled E11.9 Insulin: Yes. Trumetrix brand lancets (TRUEPLUS LANCETS) 30 gauge Test four times daily Dx: 250.02 Blood-Glucose Meter monitoring kit Glucose Meter of Choice - Kit - Dx: Type 2 DM - Controlled E11.9Use twice daily as directed FAMILY HISTORY Problem Relation Age of Onset Hypertension Mother Heart Mother concha stroke Diabetes Mother Stroke Mother Massive- Arthritis Mother Osteoarthritis Hypertension Father COPD Father Hypertension Sister 2 Hypertension Brother 3 Heart Brother triple bypass at 48 Heart Maternal Aunt Heart Maternal Uncle Diabetes Brother 3 Brother's with diabetes Diabetes Sister Arthritis Sister Arthritis Brother Arthritis Brother Arthritis Brother Social History Tobacco Use Smoking status: Former Smoker Packs/day: 1.00 Years: 15.00 Pack years: 15.00 Types: Cigarettes Quit date: 12/20/1994 Years since quittin.7 Smokeless tobacco: Never Used Vaping Use Vaping Use: Never used Substance Use Topics Alcohol use: No Drug use: No REVIEW OF SYSTEMS: GENERAL: No weight loss, malaise or fevers. RESPIRATORY: Negative for cough, hemoptysis, wheezing, COPD, dyspnea or shortness of breath CARDIOVASCULAR: Negative for chest pain, leg swelling, HTN, CHF or palpitations. GI: No nausea, vomiting, or diarrhea. Negative for incontinence. MUSCULOSKELETAL: Positive for bilat knee pain (chronic) SKIN: Positive for wound, left posterior thigh HEMATOLOGY/LYMPHOLOGY: Negative for prolonged bleeding, bruising easily or swollen nodes NEURO: No history of headaches, syncope, paralysis, seizures or tremors PHYSICAL EXAM: BP 121/58 / Pulse 80 / Resp 20 / Temp 97.7 F / SpO2 96% General appearance: Well appearing, alert, in no acute distress, well-hydrated, well nourished and Morbidly obese Skin: Ecchymotic/dusky discoloration of bilat posterior thigh areas in a follicular pattern. Positive varicosities bilat posterior upper thighs. Wound, left posterior thigh. (see wound assessment) Head: Normocephalic, no masses, lesions, tenderness or abnormalities Lungs: Respirations even and unlabored Abdomen: morbid obese Musculoskeletal: No joint swelling, deformity, or tenderness, Joint pain: Knees Neuro: Oriented X 3. Wheelchair bound, transfers with assist WOUND ASSESSMENT Wound 5: Location: right posterior thigh Type: pressure injury Stage: 3 Exposed structure:NA Progress: healed Wound measurements (cm): 0 Full thickness- Yes Tunneling/undermining: none Wound tissue color: epithelial Periwound tissue: dry, intact and blanchable dusky discoloration, soft, no induration, no fluctuance Drainage: none Drainage odor: n/a Wound 7: Location: left posterior thigh Type: pressure injury Stage: 3 Exposed structure:NA Progress: initial Wound measurements (cm): 0.5 x 0.3 x 0.2 Full thickness- Yes Tunneling/undermining: none Wound tissue color: 90% slough, 10% pink Periwound tissue: dry, intact Drainage: serosanguinous, small Drainage odor: n/a PROCEDURE: Excisional Sharp Debridement- left posterior thigh A time out was performed immediately prior to procedure start with the WALLP[employer]OVER [employer] and team , correctly identifying the patient name, date of , procedure, anatomy, patient position, safety precautions,and procedure-specific equipment needs. The procedure was explained to the patient including the risks, benefits and alternatives. The risks, including but not limited to infection and bleeding, were reviewed by the performing provider andthe patient agrees to undergo the procedure. Written consent was obtained . With appropriate consent the wound was sharply debrided down to and including subcutaneous tissue Total tissue debrided Less than 20 sq.cm Using a sterile currette the wound was debrided. Patient required pre-medication: Lidocaine 2% gel Patient expressed pain during procedure: no Scale: 0 EBL: minimal Wound measurement prior to debridement: 0.5 x 0.3 x 0.2 Wound measurement post debridement: 0.5 x 0.4 x 0.2 Type of tissue debrided: ( slough, necrotic, devitalized) Tissue at wound bed after debridment: 70 % red, 30% slough Dressing applied after debridement: yes Patient tolerated procedure well without apparent complications. DATA PHOTOGRAPHY:no A photo was taken of the patient's wound(s). Photos can be found under the [facility] images tab on [facility]. The purpose of the photo(s) is to optimize the patient's medical care and allow a visual aid to their wound evaluation and progress. The photo(s) are not intended for publication, education, or research. If the use of the photo is desired in any additional way, other than for the above outlined purposes, then an additional consentfor the intended use will need to be obtained by the requesting provider. Photo was taken of: Verbal consent was obtained: WBC Date Value 08/12/2021 13.33 k/uL 07/06/2021 7.09 k/uL 04/22/2021 5.7 K/CUMM 04/04/2021 4.65 k/uL 12/24/2020 5.33 k/uL Hemoglobin Date Value 08/12/2021 12.6 g/dL 07/06/2021 13.9 g/dL 04/22/2021 12.4 G/DL 04/04/2021 10.1 g/dL 12/24/2020 13.4 g/dL PT INR (no units) Date Value 01/13/2019 1.0 Sodium (mmol/L) Date Value 08/12/2021 141 07/06/2021 139 04/04/2021 138 01/12/2021 139 12/24/2020 138 Potassium (mmol/L) Date Value 08/12/2021 4.2 07/06/2021 4.3 04/04/2021 4.6 01/12/2021 4.6 12/24/2020 4.7 CO2 (mmol/L) Date Value 08/12/2021 30 07/06/2021 31 04/04/2021 30 01/12/2021 28 12/24/2020 27 BUN (mg/dL) Date Value 08/12/2021 15 07/06/2021 18 04/04/2021 14 01/12/2021 18 12/24/2020 19 AST (U/L) Date Value 07/06/2021 12 01/12/2021 16 12/24/2020 12 12/13/2020 16 ALT (U/L) Date Value 07/06/2021 11 01/12/2021 15 12/24/2020 14 12/13/2020 14 Bilirubin, Total (mg/dL) Date Value 07/06/2021 0.4 01/12/2021 0.4 12/24/2020 0.4 12/13/2020 0.4 Alkaline Phosphatase (U/L) Date Value 07/06/2021 129 01/12/2021 144 12/24/2020 135 12/13/2020 147 WSR (mm/hr) Date Value 12/13/2020 16 10/20/2017 27 11/17/2015 16 08/10/2015 22 07/26/2015 19 MICROBIOLOGY: Reviewed IMAGING: Reviewed IMPRESSION/RECOMMENDATIONS The patient's age, altered mobility, and other co morbidities are likely to impact wound and skin integrity Additional impediments to healing Diabetic: Yes Anticoagulation: No Antibiotics: No Steroids: No (L89.223) Pressure injury of left thigh, stage 3 (HCC) (L89.213) Pressure injury of right thigh, stage 3 (HCC) Comment: Right thigh wound healed. New left posterior thigh wound; no s/s infection. Plan: - Cleanse left posterior thigh wound and periwound area with soap and water. Pat dry. Vashe soak towound. Apply Triad cream to wound. Cover with 4x4 Marcus SAP dressing. Change dressing 3x/week and prn. ---may alternately used Triad alone on wound 2-3x/day - No further tx needed to right posterior thigh. Leave GÓMEZ - Follow up in wound center in 3 weeks (R53.81) Physical debility Comment: Pt requires some assistance with ADL care and mobility; physical limitations and limited mobility d/t chronic pain (knees), body habitus, and co morbidities. Plan: - Frequent weight shifts when seated - Pressure reduction devices as needed ---pt has offloading cushion for chair - offload as able and tolerated - Continue aggressive nutritional support for optimal wound healing I discussed the plan in detail with the patient and the patient verbalizes understanding and is in agreement. My previous progress note dated 07/13/2021/2021 was copied forward, updated where appropriate, and reflective of current medical decision making today, 08/29/2021. Keya Aparicio APRN, LIZZIE, CWS Certified [employer] August 29, 2021 documented in this encounterPremier [facility]06-28-2022 Miscellaneous Notes* Telephone Encounter - Joi Garcia LPN - 08/16/2021 11:20 AM EDT Patient notified. Verbalized understanding. * Telephone Encounter - Nehemiah Herbert MD - 08/16/2021 10:30 AM EDT White count is up slightly. retic count is elevated but anemia is better. To be on safe side recheck labs in one month documented in this encounterPremier Health [facility]06-07-2022 Miscellaneous Notes* Telephone Encounter - Maris Acevedo RN - 07/26/2021 2:12 PM EDT Called patient to check on symptoms. States she stopped taking the calcium hourly last night. Todayshe states she still has numbness only in the thumbs. Advised patient that lab levels appear normal. She will continue Ca w/ Vit D three times daily. Will forward information to provider agricultural economics teacher and let her know if there are any new instructions. Pt voiced understanding. Maris Acevedo RN documented in this encounterPremier Health [facility]06-07-2022 Miscellaneous Notes* Telephone Encounter - Louie Quiroz - 07/26/2021 11:19 AM EDT 07/26/21 (afternoon): Calcium and PTH indexed into Epic. 07/26/21 (morning):Our office has been awaiting test results all morning. Patient called to check up on status. I called [facility] at [phone] to check on status and to verify they had our correct fax number. Louie at [place] stated results were not in yet. documented in this encounterPremier [facility]06-06-2022 Miscellaneous Notes* Telephone Encounter - Maris Acevedo RN - 07/25/2021 2:34 PM EDT RN spoke with Dr. Murrieta who ordered Ca and PTH level to be drawn. States she will call in prescription for Calcitrol. RN faxed orders to Home Health agency and notified patient. Pt voices understanding Maris Acevedo RN documented in this encounterPremier [facility]06-06-2022 Miscellaneous Notes* Telephone Encounter - Maris Acevedo RN - 07/25/2021 11:59 AM EDT Pt called over weekend with numbness in hands. Pt states she was told to take hourly calcium and tocall office if tingling continued by noon Sunday. Has been taking extra Ca every hour since yesterday and tingling/numbness remains. RN forwarded information to MD agricultural economics teacher. Maris Acevedo RN documented in this encounterPremier [facility]06-05-2022 Miscellaneous Notes* Telephone Encounter - Natalie Yan RN - 07/24/2021 3:38 PM EDT Patient calling with post op numbness and tingling in her hands. Patient states she was told this may happen and she could take additional calcium tablets. Patient states she has taken 3 tablets as prescribed plus 2 additional tablets and the numbness and tingling remain. resident services director physician for Dr. Leola vela. Dr. Janice Murrieta returned call, updated and conferenced to patient. documented in this encounterPremier Health [facility]06-01-2022 NoteHNO ID: [id number] Author: Bessy Kirkpatrick APRN.IRRIGATION SERVICE TECHNICIAN Service: ? Author Type: Nurse Business Office Representative Type: Anesthesia Procedure Notes Filed: 07/20/2021 10:40 AM Note Text: ANESTHESIOLOGY PROCEDURE NOTE Airway General Information Procedure Start Time/Medication Administration: 07/20/2021 10:29 AM Patient location during procedure: OR Timeout Performed Pre-procedure: timeout performed Consent Obtained: Yes Patient identity confirmed: arm band, care clinical team lead and patient Staffing IRRIGATION SERVICE TECHNICIAN: Bessy Kirkpatrick APRN.IRRIGATION SERVICE TECHNICIAN Performed by: WILLIE Indications and Patient Condition Preoxygenated: yes Patient position: sniffing Difficult Mask: No Indications for airway management: anesthesia anesthesia circuit Method: asleep Airway Accessory: oral airway Final Airway Details Final airway type: endotracheal airway Final Endotracheal Airway: ETT Cuffed: yes Successful intubation technique: video laryngoscopy Devices used: Nadia Endotracheal tube insertion site: oral Blade: Rosa Maria Blade size: #3 ETT size (mm): 7.0 Measured from: lips Measurement (cm): 21 Placement verified by: capnometry Cormack-Lehane Classification: grade IIa - partial view of glottis Number of attempts at approach: 1 Airway not difficult SIGNATURE: Bessy Kirkpatrick APRN.CRNA PATIENT NAME: Wilton Khan DATE: July 20, 2021 TIME: 10:38 AM CSN: [id number] Miscellaneous Notes* Telephone Encounter - Keo Napier LPN - 07/19/2021 12:26 PM EDT Patient phones requesting refills as follows: Pending Prescriptions Disp Refills DULOXETINE 60 MG CAPSULE,DELAYED RELEASE 90 capsule 1 Sig: Take 1 capsule by mouth once daily. DWAINE: No MEDHAT 05/02/21 NOV 08/12/21 Please review and advise. Keo Napier LPN * Telephone Encounter - Bel[address] Pss - 07/19/2021 8:26 AM EDT Patient has been identified by name and date of : Yes Pending Prescriptions Disp Refills DULOXETINE 60 MG CAPSULE,DELAYED RELEASE 90 capsule 1 Sig: Take 1 capsule by mouth once daily. DWAINE: No RX INSTRUCTIONS: Patient aware RX will be sent to pharmacy. No need to notify patient. [address]gica [address] Pss documented in this encounterPremier [facility]05-26-2022 Miscellaneous Notes* Telephone Encounter - Maris Acevedo RN - 07/14/2021 3:21 PM EDT Pt states her insurance company called and told her that her surgery has been cleared. Advised her that she is scheduled. Questions answered. Pt voices understanding Maris Acevedo RN documented in this encounterPremier Health [facility]05-25-2022 NoteHNO ID: [id number] Author: Keya Aparicio APRN.OIL FIELD ROUSTABOUT Service: ? Author Type: Nurse Practitioner Type: Progress Notes Filed: 07/13/2021 5:01 PM Note Text: WOUND CENTER PROGRESS NOTE PATIENT NAME: Wilton Khan DATE OF FOLLOW UP: 07/13/2021 REASON FOR FOLLOW UP: bilat posterior thigh wounds HISTORY OF PRESENT ILLNESS: Wilton Khan is a 61 year old y/o female w/ Hx DM, HTN, CHF, COPD, DJD, morbid obesity, who presents for wound assessment of bilat posterior thigh wounds. She continues to have much difficulty with standing and ambulation d/t chronic bilat knee pain. She sits and sleeps in a recliner chair. She has a gel offloading cushion for her chair. She continues with physical therapy at home for strengthening. Pt has assistance of [facility] 3x/week. Location: bilat posterior thigh Onset: June 2020, recurrent Aggravating factors: Debility, Diabetes mellitus, Immobility, Positioning and Pressure Wound etiology: Pressure Associated pain with wound: Yes Relieving factors for wound pain: Positioning and Wound care Treatments: Current: Triad, Marcus SAP Past: Desitin, AANDD ointment, alginate w/ silver, Triad, Promogran PAST MEDICAL HISTORY Diagnosis Date - Abnormal [...] Essential hypertension, benign - Generalized OA - Hyperprolactinemia (HCC) 10/13/2005 - Localized osteoarthrosis not specified whether primary or secondary, lower leg - Major depressive disorder, recurrent episode - Mucous polyp of cervix 07/19/05 - Other and unspecified anterior pituitary hyperfunction (HCC) 10/13/05 elevated prolactin level-was normal in 2011 - PMH - PAST MEDICAL HISTORY OF sleep apnea - PMH - PAST MEDICAL HISTORY OF sleep apnea - SVT (supraventricular tachycardia) ([facility]) - 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 - Type 2 diabetes mellitus without complication, with long-term current use of insulin (HCC) 12/22/2013 PAST SURGICAL HISTORY Procedure Laterality Date - BIOPSY CERVIX SINGLE/MULT/EXCISION OF LESION SPX 07/19/05 endocervical polyp - COLONOSCOPY FLX DX W/COLLJ SPEC WHEN PFRMD 01/09/2012 Colonoscopy repeat 10 years - COLPOSCOPY CERVIX UPPER/ADJACENT VAGINA Colposcopy - EGD TRANSORAL BIOPSY SINGLE/MULTIPLE 01/16/07 - ESOPHAGOGASTRODUODENOSCOPY TRANSORAL DIAGNOSTIC 01/09/2012 EGD - HERNIA REPAIR HX 11/2015 ventral - HYSTEROSCOPY DX 12/17/2014 [facility] - LAPS SURG CHOLECYSTECTOMY W/CHOLANGIOGRAPHY 05/15/08 ALLERGIES ALLERGIES Allergen Reactions - Lyrica [Pregabalin] Anaphylaxis Not sure if accurate. Can take gabapentin. Patient is unsure of reaction. - Accupril [Quinapril* Intolerance dizziness - Actos [Pioglitazone] Swelling - Amlodipine Swelling Leg edema - Atenolol Swelling - Atorvastatin Intolerance Muscle cramps and weakness - Celebrex [Celecoxib] Swelling - Effexor [Venlafaxin* swelling high blood pressure - Januvia [Sitaglipti* GI Upset, Other: See Comments Patient states she couldn't eat - Metoprolol Swelling - Mobic [Meloxicam] GI Upset - Prozac [Fluoxetine * Intolerance tremor - Remeron [Mirtazapin* Rash - Risperidone Mental Status Change - Seroquel [Quetiapin* hypertension,swelling - Vancomycin Itching, Other: See Comments, Rash red all over Other reaction(s): Other: See Comments red all over - Vioxx [Rofecoxib] GI Upset - Wellbutrin [Bupropi* Intolerance nightmares CURRENT OUTPATIENT MEDICATIONS spironolactone (ALDACTONE) 50 mg tablet Take 1 tablet by mouth once daily. potassium chloride (K-TAB) 10 mEq tablet Take 1 tablet by mouth once daily. furosemide (LASIX) 80 mg tablet Take 1 tablet by mouth twice daily. ARIPiprazole (ABILIFY) 10 mg tablet Take 1 tablet by mouth once daily. HYDROcodone-acetaminophen (NORCO) 5-325 mg per tablet Take 1 tablet by mouth twice daily as needed for pain for up to 3 days. pravastatin (PRAVACHOL) 20 mg tablet Take 1 tablet by mouth daily at bedtime. traZODone (DESYREL) 100 mg tablet Take 1 tablet by mouth daily at bedtime. methocarbamol (ROBAXIN) 500 mg tablet Take 1 tablet by mouth twice daily. Cholecalciferol, Vitamin D3, 125 mcg (5,000 unit) cap Take 1 capsule by mouth once daily. ascorbic acid (VITAMIN C ORAL) Take 1 tablet by mouth once daily. nystatin (MYCOSTATIN) powder Apply 1 application to affected area four times daily. Insulin Maljamar, Disposable, (BD ULTRA-FINE MADI PEN NEEDLE) 32 gauge x Use one needle for each dose. 2/day. ibuprofen (MOTRIN (more content not included)...[facility] [id number] History of Present illness Narrative* Keya Aparicio APRN.OIL FIELD ROUSTABOUT - 07/13/2021 3:52 PM EDT Images from the original note were not included. WOUND CENTER PROGRESS NOTE PATIENT NAME: Wilton Khan DATE OF FOLLOW UP: 07/13/2021 REASON FOR FOLLOW UP: bilat posterior thigh wounds HISTORY OF PRESENT ILLNESS: Wilton Khan is a 61 year old y/o female w/ Hx DM, HTN, CHF, COPD, DJD, morbid obesity, who presents for wound assessment of bilat posterior thigh wounds. She continues to have much difficulty with standing and ambulation d/t chronic bilat knee pain. She sits and sleeps in a recliner chair. She has a gel offloading cushion for her chair. She continues with physical therapy at home for strengthening. Pt has assistance of [facility] 3x/week. Location: bilat posterior thigh Onset: June 2020, recurrent Aggravating factors: Debility, Diabetes mellitus, Immobility, Positioning and Pressure Wound etiology: Pressure Associated pain with wound: Yes Relieving factors for wound pain: Positioning and Wound care Treatments: Current: Triad, Marcus SAP Past: Desitin, A&D ointment, alginate w/ silver, Triad, Promogran PAST MEDICAL HISTORY Diagnosis Date Abnormal glandular Papanicolaou smear of cervix 05/30/05 ABNL GLANDULAR PAP SMEAR CERVIX Acute gastritis without mention of hemorrhage Anxiety state, unspecified Arrhythmia Chronic cholecystitis Chronic obstructive pulmonary disease (COPD) (HCC) Congestive heart failure (HCC) 10/03/2011 Diabetes ([facility]) diabetes II 2010 Diaphragmatic hernia without mention of obstruction or gangrene Dysthymic disorder Depression (non-psychotic) Esophageal reflux Essential hypertension, benign Generalized OA Hyperprolactinemia ([facility]) 10/13/2005 Localized osteoarthrosis not specified whether primary or secondary, lower leg Major depressive disorder, recurrent episode Mucous polyp of cervix 07/19/05 Other and unspecified anterior pituitary hyperfunction ([facility]) 10/13/05 elevated prolactin level-was normal in 2011 PMH - PAST MEDICAL HISTORY OF sleep apnea PMH - PAST MEDICAL HISTORY OF sleep apnea SVT (supraventricular tachycardia) ([facility]) 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 Type 2 diabetes mellitus without complication, with long-term current use of insulin ([facility]) 12/22/2013 PAST SURGICAL HISTORY Procedure Laterality Date BIOPSY CERVIX SINGLE/MULT/EXCISION OF LESION SPX 07/19/05 endocervical polyp COLONOSCOPY FLX DX W/COLLJ SPEC WHEN PFRMD 01/09/2012 Colonoscopy repeat 10 years COLPOSCOPY CERVIX UPPER/ADJACENT VAGINA Colposcopy EGD TRANSORAL BIOPSY SINGLE/MULTIPLE 01/16/07 ESOPHAGOGASTRODUODENOSCOPY TRANSORAL DIAGNOSTIC 01/09/2012 EGD HERNIA REPAIR HX 11/2015 ventral HYSTEROSCOPY DX 12/17/2014 [facility] LAPS SURG CHOLECYSTECTOMY W/CHOLANGIOGRAPHY 05/15/08 ALLERGIES ALLERGIES Allergen Reactions Lyrica [Pregabalin] Anaphylaxis Not sure if accurate. Can take gabapentin. Patient is unsure of reaction. Accupril [Quinapril* Intolerance dizziness Actos [Pioglitazone] Swelling Amlodipine Swelling Leg edema Atenolol Swelling Atorvastatin Intolerance Muscle cramps and weakness Celebrex [Celecoxib] Swelling Effexor [Venlafaxin* swelling high blood pressure Januvia [Sitaglipti* GI Upset, Other: See Comments Patient states she couldn't eat Metoprolol Swelling Mobic [Meloxicam] GI Upset Prozac [Fluoxetine * Intolerance tremor Remeron [Mirtazapin* Rash Risperidone Mental Status Change Seroquel [Quetiapin* hypertension,swelling Vancomycin Itching, Other: See Comments, Rash red all over Other reaction(s): Other: See Comments red all over Vioxx [Rofecoxib] GI Upset Wellbutrin [Bupropi* Intolerance nightmares CURRENT OUTPATIENT MEDICATIONS spironolactone (ALDACTONE) 50 mg tablet Take 1 tablet by mouth once daily. potassium chloride (K-TAB) 10 mEq tablet Take 1 tablet by mouth once daily. furosemide (LASIX) 80 mg tablet Take 1 tablet by mouth twice daily. ARIPiprazole (ABILIFY) 10 mg tablet Take 1 tablet by mouth once daily. HYDROcodone-acetaminophen (NORCO) 5-325 mg per tablet Take 1 tablet by mouth twice daily as needed for pain for up to 3 days. pravastatin (PRAVACHOL) 20 mg tablet Take 1 tablet by mouth daily at bedtime. traZODone (DESYREL) 100 mg tablet Take 1 tablet by mouth daily at bedtime. methocarbamol (ROBAXIN) 500 mg tablet Take 1 tablet by mouth twice daily. Cholecalciferol, Vitamin D3, 125 mcg (5,000 unit) cap Take 1 capsule by mouth once daily. ascorbic acid (VITAMIN C ORAL) Take 1 tablet by mouth once daily. nystatin (MYCOSTATIN) powder Apply 1 application to affected area four times daily. Insulin Maljamar, Disposable, (BD ULTRA-FINE MADI PEN NEEDLE) 32 gauge x Use one needle for each dose. 2/day. ibuprofen (MOTRIN) 800 mg tablet Take 1 tablet by mouth every 8 hours as needed (FOR PAIN. TAKE WITH FOOD). DULoxetine (CYMBALTA) 60 mg capsule Take 1 capsule by mouth once daily. metFORMIN ER (GLUCOPHAGE XR) 500 mg 24 hr tablet Take 1 tablet by mouth once daily. insulin glargine (LANTUS SOLOSTAR U-100 INSULIN) 100 unit/mL (3 mL) Inject 25 Units subcutaneously twice daily. famotidine (PEPCID) 40 mg tablet Take 1 tablet by mouth once daily. blood sugar diagnostic (BLOOD GLUCOSE TEST) test strip Test blood sugars up to 4 times daily as directed. Dx: Type 2 DM - Controlled E11.9 Insulin: Yes. Trumetrix brand lancets (TRUEPLUS LANCETS) 30 gauge Test four times daily Dx: 250.02 nystatin (MYCOSTATIN) cream Apply 1 application to affected area twice daily. polyethylene glycol 3350 (MIRALAX, GLYCOLAX) 17 gram/dose powder Take 17 g by mouth once daily. Blood-Glucose Meter monitoring kit Glucose Meter of Choice - Kit - Dx: Type 2 DM - Controlled E11.9Use twice daily as directed FAMILY HISTORY Problem Relation Age of Onset Hypertension Mother Heart Mother concha stroke Diabetes Mother Stroke Mother Massive- Arthritis Mother Osteoarthritis Hypertension Father COPD Father Hypertension Sister 2 Hypertension Brother 3 Heart Brother triple bypass at 48 Heart Maternal Aunt Heart Maternal Uncle Diabetes Brother 3 Brother's with diabetes Diabetes Sister Arthritis Sister Arthritis Brother Arthritis Brother Arthritis Brother Social History Tobacco Use Smoking status: Former Smoker Packs/day: 1.00 Years: 15.00 Pack years: 15.00 Types: Cigarettes Quit date: 12/20/1994 Years since quittin.5 Smokeless tobacco: Never Used Vaping Use Vaping Use: Never used Substance Use Topics Alcohol use: No Drug use: No REVIEW OF SYSTEMS: GENERAL: No weight loss, malaise or fevers. RESPIRATORY: Negative for cough, hemoptysis, wheezing, COPD, dyspnea or shortness of breath CARDIOVASCULAR: Negative for chest pain, leg swelling, HTN, CHF or palpitations. GI: No nausea, vomiting, or diarrhea. Negative for incontinence. MUSCULOSKELETAL: Positive for bilat knee pain (chronic) SKIN: Positive for wound, right posterior thighs HEMATOLOGY/LYMPHOLOGY: Negative for prolonged bleeding, bruising easily or swollen nodes NEURO: No history of headaches, syncope, paralysis, seizures or tremors PHYSICAL EXAM: BP 113/98 / Pulse 77 / Resp 20 / Temp 97.6 F / SpO2 97% General appearance: Well appearing, alert, in no acute distress, well-hydrated, well nourished and Morbidly obese Skin: Ecchymotic/dusky discoloration of bilat posterior thigh areas in a follicular pattern. Positive varicosities bilat posterior upper thighs. Wound, right posterior thigh. (see wound assessment) Head: Normocephalic, no masses, lesions, tenderness or abnormalities Lungs: Respirations even and unlabored Abdomen: morbid obese Musculoskeletal: No joint swelling, deformity, or tenderness, Joint pain: Knees Neuro: Oriented X 3. Wheelchair bound, transfers with assist WOUND ASSESSMENT Wound 5: Location: right posterior thigh Type: pressure injury Stage: 3 Exposed structure:NA Progress: improved Wound measurements (cm): 0.4 x 0.4 x 0.2 Full thickness- Yes Tunneling/undermining: none Wound tissue color: red Periwound tissue: dry, intact and blanchable dusky discoloration, soft, no induration, no fluctuance Drainage: serous, small Drainage odor: none Wound 6: Location: left posterior thigh Type: pressure injury Stage: 3 Exposed structure:NA Progress: healed Wound measurements (cm): 0 Full thickness- Yes Tunneling/undermining: none Wound tissue color: epithelial Periwound tissue: dry, intact Drainage: none Drainage odor: n/a DATA PHOTOGRAPHY:no A photo was taken of the patient's wound(s). Photos can be found under the [facility] images tab on [facility]. The purpose of the photo(s) is to optimize the patient's medical care and allow a visual aid to their wound evaluation and progress. The photo(s) are not intended for publication, education, or research. If the use of the photo is desired in any additional way, other than for the above outlined purposes, then an additional consentfor the intended use will need to be obtained by the requesting provider. Photo was taken of: Verbal consent was obtained: WBC (k/uL) Date Value 07/06/2021 7.09 04/04/2021 4.65 12/24/2020 5.33 12/13/2020 6.00 Hemoglobin (g/dL) Date Value 07/06/2021 13.9 04/04/2021 10.1 12/24/2020 13.4 12/13/2020 13.5 PT INR (no units) Date Value 01/13/2019 1.0 Sodium (mmol/L) Date Value 07/06/2021 139 04/04/2021 138 01/12/2021 139 12/24/2020 138 Potassium (mmol/L) Date Value 07/06/2021 4.3 04/04/2021 4.6 01/12/2021 4.6 12/24/2020 4.7 CO2 (mmol/L) Date Value 07/06/2021 31 04/04/2021 30 01/12/2021 28 12/24/2020 27 BUN (mg/dL) Date Value 07/06/2021 18 04/04/2021 14 01/12/2021 18 12/24/2020 19 AST (U/L) Date Value 07/06/2021 12 01/12/2021 16 12/24/2020 12 12/13/2020 16 ALT (U/L) Date Value 07/06/2021 11 01/12/2021 15 12/24/2020 14 12/13/2020 14 Bilirubin, Total (mg/dL) Date Value 07/06/2021 0.4 01/12/2021 0.4 12/24/2020 0.4 12/13/2020 0.4 Alkaline Phosphatase (U/L) Date Value 07/06/2021 129 01/12/2021 144 12/24/2020 135 12/13/2020 147 WSR (mm/hr) Date Value 12/13/2020 16 10/20/2017 27 11/17/2015 16 08/10/2015 22 07/26/2015 19 MICROBIOLOGY: Reviewed IMAGING: Reviewed IMPRESSION/RECOMMENDATIONS The patient's age, altered mobility, and other co morbidities are likely to impact wound and skin integrity Additional impediments to healing Diabetic: Yes Anticoagulation: No Antibiotics: No Steroids: No (L89.213) Pressure injury of right thigh, stage 3 (HCC) (L89.223) Pressure injury of left thigh, stage 3 (HCC) Comment: Left thigh wound healed. Right thigh wound improved, beefy red wound base, no s/s infection. Right thigh periwound blanchable dusky discoloration, mushy, no fluctuance. Plan: - Cleanse right posterior thigh wound and periwound area with soap and water. Pat dry. Vashe soak to wound. Skin prep periwound. Apply Triad cream to wound. Cover with 4x4 Marcus SAP dressing. Change dressing 3x/week and prn. ---may alternately used Triad alone on wound 2-3x/day - No further tx needed to left thigh. Leave TOOL AND MACHINE MAINTAINER - Follow up in wound center in 2 weeks (R53.81) Physical debility Comment: Pt requires some assistance with ADL care and mobility; physical limitations and limited mobility d/t chronic pain (knees), body habitus, and co morbidities. Plan: - Frequent weight shifts when seated - Pressure reduction devices as needed ---pt has offloading cushion for chair - offload as able and tolerated - Continue aggressive nutritional support for optimal wound healing I discussed the plan in detail with the patient and the patient verbalizes understanding and is in agreement. My previous progress note dated 06/08/2021 was copied forward, updated where appropriate, and reflective of current medical decision making today, 07/13/2021. Keya Aparicio APRN, OIL FIELD ROUSTABOUT, CWS Certified Tester Food Products July 13, 2021 documented in this encounterPremier Health [facility]05-25-2022 Instructions* Patient Instructions* Winnie Ahuja RN - 07/13/2021 3:52 PM EDT WOUND CARE INSTRUCTIONS- Wilton V Mace Wound location: posterior right thigh cluster wounds [facility]: FAX: [phone] contract administration manager: Ramya Grayson phone: [phone] Wound location: right posterior thigh - Gather supplies - Prepare a clean work surface such as new paper towel or newly cleaned towel - Plastic garbage bag for old dressing - Wash your hands with soap and water before and after wound care. - Apply Vashe moistened gauze to wound base and allow to soak for 5-10 minutes, pat dry - paint yoon-wound with skin prep - Apply triad cream to the wound bed - Cover with 6x7 island dressing (I.e. Marcus SAP silicone border dressing) - Change your dressing three times per week and as needed to maintain a clean, dry, & intact dressing - Avoid sitting as much as possible - turning side to side -Patient has gel mattress at home To give your wound the best chance to heal: - Eat three balanced meals daily focusing on the protein - Control your blood sugar. Keep blood sugar less than 200 - Complete your wound care instructions as ordered - Vitamin C 500 mg twice daily - Multiple Vitamin Daily - Drink a protein shake daily - Premiere Clear or Glucerna for Diabetic patients, Nepro for renal patients and premiere for non-renal and non-diabetic patients Report any of the following signs and symptoms of infection to the Wound Center at [phone] or go to the Emergency Department: Fever or chills Increased drainage Green or yellow drainage Foul odor Increased pain Hardness around the wound Redness, warmth or swelling of the surrounding tissue Color change to the wound To give your wound the best chance to heal: - Eat three balanced meals daily focusing on the protein - Control swelling by elevating the extremity above your heart - Control your blood sugar. Keep blood sugar less than 200 - Complete your wound care instructions - Vitamin C 500 mg twice daily - Multiple Vitamin Daily - Drink a protein shake daily Report any of the following changes [phone] or go to the Emergency Department: Fever or chills Increased drainage Green or yellow drainage Foul odor Increased pain Hardness around the wound Redness, warmth or swelling of the surrounding tissue Color change to the wound Plan: 1. Follow-up in the wound center with Keya Aparicio CNP in 2 weeks 2. Continue aggressive nutritional support for optimal wound healing & frequent position changes to relieve pressure on the buttocks Avoid laying on backside Avoid sitting as much as possible Home Care to please order island dressings 6x7 excel sap and skin prep Bring your chair cushion with you to your next wound center visit Home care to order wound care supplies Keya Aparicio CNP/ness/rubina documented in this encounterPremier Health [facility]05-25-2022 Nurse Note* Winnie Ahuja RN - 07/13/2021 3:50 PM EDT Nursing Documentation Pertinent Medical History: DM, HTN, depression, DJD, CHF, COPD, hyperparathyroidism Wound Etiology according to patient: wounds were healed for a month after going to wound center in [place]; re-occurred June 2020 unsure how they occur Patient arrived via: [email or web address]Nursing Facility: [facility] FAX: [phone] contract administration manager: Ramya Grayson [phone] Consent captured for debridement per Keya Aparicio CNP will be good untill 11/10 Anticoagulant Therapy: none ACTIVE CARE PER PROVIDER: Keya Aparicio CNP WOUND #1 - 4 previously healed WOUND ASSESSMENT: Refer to Provider's Wound Assessment Note VASCULAR ASSESSMENT BY PROVIDER: N/A CHF History: yes per patient EDEMA: N/A - Wound on posterior right thigh Right foot: Right calf: Left foot : Left Calf: Other: MEASUREMENTS: N/A - wounds on posterior right thigh Right Calf: Right Ankle: Left Calf: Left Ankle: Length: WOUND PHOTOGRAPHY: NO DEBRIDEMENT PROCEDURE BY PROVIDER: Anesthetic Used: Lido gel 2% applied per Carmen Nuñez RN Wound # : 1 Other procedure: N/A Specimen collected: N/A WOUND TREATMENT PER MD ORDER: WOUND # 5 LOCATION: Right posterior thigh cluster - buttocks L: 0.4 cm x W: 0.4 cm D: 0.2 cm DEBRIDEMENT by provider: n/a Post debridement measurements: L: cm x W: cm x D: Cm Cleansed with: vashe' Applied to yoon-wound skin: Triad Applied to wound bed: triad Covered and secured with: Marcus sap 4x4 WOUND # 6 LOCATION: Left Posterior thigh (NEW 06/08/21) Closed 07/13/21 COMPRESSION: N/A SPECIAL NEEDS: Coordination of care - [facility] manages wound care [facility]; aid service ONLY. [facility] - AID SERVICE ONLY FAX: [phone] Emotional support N/A OR set-up N/A Sales Project Engineer N/A Incontinence needs N/A DISCHARGED in stable condition to: Home via wheelchair Global surgical period dates if applicable: N/A Plan: 1. Follow-up in the wound center with Keya Aparicio CNP in 2 weeks 2. Continue aggressive nutritional support for optimal wound healing & frequent position changes to relieve pressure on the buttocks Avoid laying on backside Avoid sitting as much as possible Home Care to please order island dressings 6x7 excel sap Bring your chair cushion with you to your next wound center visit Home care to order wound care supplies EDUCATION: The patient/family was instructed how to cleanse the wound(s). Visual demonstration on how to applythe dressing with teach back method. Signs & symptoms of infection were reviewed: Increased redness, swelling, pain, green/yellow drainage, fever and/or chills would all need to be evaluated by a Physician. Patient received typed home-going wound care instructions and has expressed intent to comply. OTHER EDUCATION: Education performed regarding lymphedema/edema: Elevation of extremity above the heart for 30 minutes three times daily and as needed Exercise such as writing the ABC's with your toes in the air, walking and/or calf pumps Wearing compression as ordered by provider Diet controlling of sodium as instructed by provider Use of medication to help control edema. UNIVERSAL PROTOCOL / SAFETY CHECKLIST Procedure to be Performed: sharp debridement to right posterior upper thigh/buttock NA Current HBOT Status: Active or Complete - see screening below WOUND CENTER HYPERBARIC OXYGEN THERAPY SCREENING 1. Is the patient diabetic? (If No, skip to question 5) Yes 2. Does the patient have a lower extremity wound? YES 3. Is there exposed/involved tendon or bone? No 4. Has the wound been present for 30 days? no If Yes to ALL questions above, consult the Hyperbaric Center 5. Has the patient been diagnosed with osteomyelitis? No 6. Has the patient had a previous skin graft or flap at the wound? No 7. Has the patient had or been offered vascular intervention/evaluation? No 8. Does the patient have a wound at an amputation site? No 9. Has the patient had radiation therapy at the site of the problem? No If Yes to ANY of questions 5-9, consult the Hyperbaric Center documented in this encounterPremier Health [facility]05-25-2022 Miscellaneous Notes* Telephone Encounter - Ana Rosen Ma - 07/13/2021 10:50 AM EDT MEDHAT 05/02/2021 NOV 08/12/2021 Ana Rosen Ma * Telephone Encounter - Shellie Turcios - 07/13/2021 8:07 AM EDT Patient has been identified by name and date of : Yes Pending Prescriptions Disp Refills SPIRONOLACTONE 50 MG TABLET 90 tablet 1 Sig: Take 1 tablet by mouth once daily. DWAINE: No RX INSTRUCTIONS: Patient aware RX will be sent to pharmacy. No need to notify patient. Shellie Turcios documented in this encounterPremier Health [facility]05-19-2022 Miscellaneous Notes* Telephone Encounter - Luisa Cornell LPN - 07/07/2021 3:07 PM EDT Received outside medical record, EKG. Provided copy to Sylvia Chaves CNP for review and sent to operations for scanning. Luisa Cornell LPN documented in this encounterPremier Health [facility]05-18-2022 Instructions* Patient Instructions* Sylvia Chaves APRN.LIZZIE - 07/06/2021 2:32 PM EDT PATIENT PREOPERATIVE INSTRUCTIONS Jean Bhagat, * has scheduled you for your procedure at this surgery center: [facility]: [phone] -- [address] [place] [address]. Please read below carefully for your personalized instructions. Dietary Restrictions: - No solid food after midnight. - You may have 12 ounces of clear liquids (water, clear juices such as apple juice or gatorade, carbonated beverages, clear tea, black coffee, jello) until 2 hours before scheduled arrival at facility. No red/purple coloring and no creamer/sugar Medications: Unless instructed differently below, stay on all of your medications until your surgery. Approved medications to take the morning of surgery with a sip of water: Abilify, Duloxetine, Famotidine, Potassium Chloride, Pravastatin No Spironolactone day of surgery - No ORAL diabetic medication the morning of surgery. - Accucheck day of surgery. - Take half dose of long acting insulin (Lantus, NPH) the day of surgery. If you start any new medications after today's visit, please contact the surgeon's office. Blood Thinning Medications: - Stop NSAIDS (Ibuprofen, Advil, Aleve, Motrin, Celebrex, Mobic, etc.) 7 days before surgery, as directed by your surgeon. - Stop Aspirin 7 days before surgery, as directed by your surgeon. - Stop Vitamin E, ALL multi-vitamins, herbals and dietary supplements 7 days before surgery. - You may take Tylenol (Acetaminophen) or any of your pain medications that do not contain aspirin or NSAIDS as needed. Important Reminders: - If you use CPAP/BIPAP, bring the machine with you to the surgery center. - If you are prescribed inhalers for breathing, continue using them. - Candy, mints, and tobacco products are NOT permitted the morning of surgery. - Hearing aids, dentures and glasses may be worn the morning of surgery. - NO jewelry, body piercings, makeup, hairpins or contacts are to be worn the day of surgery. If you develop symptoms such as a fever, cold, or flu, or have other changes to your health within TWO DAYS of scheduled surgery or the morning of surgery, please contact the surgery center above. Personal Belongings: -Please have photo ID and insurance cards. -If you do not have a copy of advance directives on file with us, please bring a copy with you on the day of surgery. - Leave ALL valuables and money at home or with family members. For Outpatient Procedures: - YOU MUST HAVE A RESPONSIBLE CERTIFIED MEDICAL TECHNICIAN TAKE YOU HOME. A TANNING SOLUTION MAKER OR STRETCHER OPERATOR CANNOT BE MADE A RESPONSIBLE CERTIFIED MEDICAL TECHNICIAN. - We recommend that a responsible person stays with you overnight to take care of you. - You cannot stay in a hotel alone after outpatient surgery. You will not be permitted to have yoursurgery, if you do not have someone to take care of you. Arrival Time for Surgery: - The Surgery Center or hospital where you are having surgery will call the afternoon before surgery (or Sunday for Sunday surgery) with a scheduled arrival time. - If you have not heard by 4 pm, please contact the surgery center above. Please be aware that emergency situations arise, which may delay or change your surgical time. If this happens, we will notify you as soon as possible and regret any inconvenience. If you already have an Advance Directive, please fax a copy to [phone] or email to for it to be added to your chart. If you do not have an Advance Directive, you can find the appropriate form and more information at [email or web address]. We recommend that youcomplete the Advance Directive form found on the website and bring it with you the day of your surgery. It can be witnessed and scanned into your chart that day. Sylvia Chaves APRN.CNP documented in this encounterPremier Health [facility]05-18-2022 History and physical note * Sylvia Chaves APRN.CNP - 07/06/2021 2:30 PM EDT Images from the original note were not included. HISTORY AND PHYSICAL EXAMINATION SERVICE DATE: 07/06/2021 SERVICE TIME: 2:30 PM PRIMARY CARE PHYSICIAN: Nehemiah Herbert MD REASON FOR VISIT: Wilton Khan is a 61 year old female who is scheduled for Procedure(s): PARATHYROIDECTOMY (N/A) at the request of Dr. Jean Bhagat for consultation. My final recommendation will be communicated back to the requesting physician by way of shared medical record or letter. Subjective The patient has the following: ACTIVE PROBLEM LIST Anxiety State Essential Hypertension, Benign ABNL GLANDULAR PAP SMEAR CERVIX Irregular Menstrual Cycle Esophageal Reflux Diaphragmatic Hernia Morbid Obesity (Hcc) Obstructive Sleep Apnea Svt (Supraventricular Tachycardia) ([facility]) Benign Hypertensive Heart Disease With Chf, Nyha Class 2 ([facility]) Spondylolisthesis Lumbar Facet Arthropathy Ddd (Degenerative Disc Disease), Lumbar Ddd (Degenerative Disc Disease), Cervical Type 2 Diabetes Mellitus With Peripheral Neuropathy (Hcc) Pmb (Postmenopausal Bleeding) Dysthymia Major depressive disorder, recurrent episode, moderate (HCC) Pain Disorder With Psychological Factors Diffuse Myofascial Pain Syndrome Bilateral Primary Osteoarthritis of Knee Liver Disease Umbilical Hernia Without Obstruction and Without Gangrene Hypercalcemia Primary Hyperparathyroidism (Hcc) Dvt (Deep Venous Thrombosis) (Hcc) Obesity, Class III, BMI >= 40 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 CHIEF COMPLAINT: Pre-op exam HPI: PM is a 61 yo seen for PAC due to scheduled above surgery because of hyperparathyroidectomy. 01/31/2021 Dr. Bhagat HPI: Wilton Khan was evaluated today for a consultation regarding the following condition(s): Hyperparathyroidism (hcc). New or established diagnosis: New Mode of detection: Routine serum chemistry Associated symptoms: Yes; bone pain History of head and neck radiation: No Family history of endocrine tumors: No History of previous thyroid biopsy or any cervical operation: No Pertinent medications (blood thinners, calcium, biotin, diuretics, lithium): No REVIEW OF SYSTEMS: General: No weight loss, malaise or fevers. Neurological: No history of TIA's, stroke, WHITE SOURER tumor, impaired sensorium, hemiplegia, paraplegia orquadraplegia. No neurological symptoms or problems. Respiratory: +former smoker 1ppd/20 years. No history of current cough or dyspnea, or pneumonia in the past 6 weeks. No history of respiratory/pulmonary symptoms or problems. Positive for: obstructive sleep apnea and CPAP/BiPAP compliant. Cardiovascular: Positive for: CHF (on rx), hyperlipidemia (on rx) and hypertension (on rx) Negative for: angina, anticoagulation therapy, arrhythmia, atrial fibrillation, CAD, chest pain, congenital heart defect, DVT/PE, recent UT, murmur/valvular heart disease and open heart surgery. GI: Positive for: GERD (on rx) and liver disease (fatty liver) Negative for: abdominal pain, dysphagia, hepatitis, irritable bowel syndrome, inflammatory bowel disease, nausea, pancreatitis, vomiting and ETOH >2 drinks/day. : Positive for: urinary incontinence and urinary tract infection (recently tx, all symptoms resolved). Negative for: nephrolithiasis and renal failure. 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 Endocrine: Positive for: diabetes mellitus. Patient's diabetes mellitus is controlled by insulin and oral agents. Negative for: hypothyroidism. Hematology: No history of bleeding or clotting disorder. Patient is not taking anti-coagulation or platelet medications. No history of hematological symptoms or problems. Oncology: No history of CA metastasis, chemo within 30 days, or radiotherapy within 90 days. No history of oncological symptoms or problems. Psych: Positive for: anxiety (on rx) and depression (on rx). Musculoskeletal: Positive for: back pain and joint pain. Skin: Negative for lesions, rash and itching. PAST MEDICAL HISTORY Diagnosis Date Abnormal glandular Papanicolaou smear of cervix 05/30/05 ABNL GLANDULAR PAP SMEAR CERVIX Acute gastritis without mention of hemorrhage Anxiety state, unspecified Arrhythmia Chronic cholecystitis Chronic obstructive pulmonary disease (COPD) ([facility]) Congestive heart failure ([facility]) 10/03/2011 Diabetes ([facility]) diabetes II 2010 Diaphragmatic hernia without mention of obstruction or gangrene Dysthymic disorder Depression (non-psychotic) Esophageal reflux Essential hypertension, benign Generalized OA Hyperprolactinemia ([facility]) 10/13/2005 Localized osteoarthrosis not specified whether primary or secondary, lower leg Major depressive disorder, recurrent episode Mucous polyp of cervix 07/19/05 Other and unspecified anterior pituitary hyperfunction ([facility]) 10/13/05 elevated prolactin level-was normal in 2011 PMH - PAST MEDICAL HISTORY OF sleep apnea PMH - PAST MEDICAL HISTORY OF sleep apnea SVT (supraventricular tachycardia) ([facility]) 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 Type 2 diabetes mellitus without complication, with long-term current use of insulin ([facility]) 12/22/2013 PAST SURGICAL HISTORY Procedure Laterality Date BIOPSY CERVIX SINGLE/MULT/EXCISION OF LESION SPX 07/19/05 endocervical polyp COLONOSCOPY FLX DX W/COLLJ SPEC WHEN PFRMD 01/09/2012 Colonoscopy repeat 10 years COLPOSCOPY CERVIX UPPER/ADJACENT VAGINA Colposcopy EGD TRANSORAL BIOPSY SINGLE/MULTIPLE 01/16/07 ESOPHAGOGASTRODUODENOSCOPY TRANSORAL DIAGNOSTIC 01/09/2012 EGD HERNIA REPAIR HX 11/2015 ventral HYSTEROSCOPY DX 12/17/2014 D&C LAPS SURG CHOLECYSTECTOMY W/CHOLANGIOGRAPHY 05/15/08 FAMILY HISTORY Problem Relation Age of Onset Hypertension Mother Heart Mother concha stroke Diabetes Mother Stroke Mother Massive- Arthritis Mother Osteoarthritis Hypertension Father COPD Father Hypertension Sister 2 Hypertension Brother 3 Heart Brother triple bypass at 48 Heart Maternal Aunt Heart Maternal Uncle Diabetes Brother 3 Brother's with diabetes Diabetes Sister Arthritis Sister Arthritis Brother Arthritis Brother Arthritis Brother Social History Tobacco Use Smoking status: Former Smoker Packs/day: 1.00 Years: 15.00 Pack years: 15.00 Types: Cigarettes Quit date: 12/20/1994 Years since quittin.5 Smokeless tobacco: Never Used Vaping Use Vaping Use: Never used Substance Use Topics Alcohol use: No Drug use: No Prior to Admission medications as of 07/06/21 1430 Medication Sig Last Dose Taking potassium chloride (K-TAB) 10 mEq tablet Take 1 tablet by mouth once daily. Taking Yes furosemide (LASIX) 80 mg tablet Take 1 tablet by mouth twice daily. Taking Yes ARIPiprazole (ABILIFY) 10 mg tablet Take 1 tablet by mouth once daily. Taking Yes HYDROcodone-acetaminophen (NORCO) 5-325 mg per tablet Take 1 tablet by mouth twice daily as needed for pain for up to 3 days. Taking Yes pravastatin (PRAVACHOL) 20 mg tablet Take 1 tablet by mouth daily at bedtime. Taking Yes traZODone (DESYREL) 100 mg tablet Take 1 tablet by mouth daily at bedtime. Taking Yes methocarbamol (ROBAXIN) 500 mg tablet Take 1 tablet by mouth twice daily. Taking Yes Cholecalciferol, Vitamin D3, 125 mcg (5,000 unit) cap Take 1 capsule by mouth once daily. Taking Yes ascorbic acid (VITAMIN C ORAL) Take 1 tablet by mouth once daily. Taking Yes nystatin (MYCOSTATIN) powder Apply 1 application to affected area four times daily. Taking Yes Insulin Maljamar, Disposable, (BD ULTRA-FINE MADI PEN NEEDLE) 32 gauge x 5/32 Use one needle for each dose. 2/day. Taking Yes ibuprofen (MOTRIN) 800 mg tablet Take 1 tablet by mouth every 8 hours as needed (FOR PAIN. TAKE WITH FOOD). Taking Yes DULoxetine (CYMBALTA) 60 mg capsule Take 1 capsule by mouth once daily. Taking Yes metFORMIN ER (GLUCOPHAGE XR) 500 mg 24 hr tablet Take 1 tablet by mouth once daily. Taking Yes insulin glargine (LANTUS SOLOSTAR U-100 INSULIN) 100 unit/mL (3 mL) Inject 25 Units subcutaneously twice daily. Taking Yes famotidine (PEPCID) 40 mg tablet Take 1 tablet by mouth once daily. Taking Yes spironolactone (ALDACTONE) 50 mg tablet Take 1 tablet by mouth once daily. Taking Yes blood sugar diagnostic (BLOOD GLUCOSE TEST) test strip Test blood sugars up to 4 times daily as directed. Dx: Type 2 DM - Controlled E11.9 Insulin: Yes. Trumetrix brand Taking Yes lancets (TRUEPLUS LANCETS) 30 gauge Test four times daily Dx: 250.02 Taking Yes nystatin (MYCOSTATIN) cream Apply 1 application to affected area twice daily. Taking Yes polyethylene glycol 3350 (MIRALAX, GLYCOLAX) 17 gram/dose powder Take 17 g by mouth once daily. Patient taking differently: Take 17 g by mouth once daily. Prn Taking Yes Blood-Glucose Meter monitoring kit Glucose Meter of Choice - Kit - Dx: Type 2 DM - Controlled E11.9Use twice daily as directed Taking Yes No medication comments found. ALLERGIES Allergen Reactions Lyrica [Pregabalin] Anaphylaxis Not sure if accurate. Can take gabapentin. Patient is unsure of reaction. Accupril [Quinapril* Intolerance dizziness Actos [Pioglitazone] Swelling Amlodipine Swelling Leg edema Atenolol Swelling Atorvastatin Intolerance Muscle cramps and weakness Celebrex [Celecoxib] Swelling Effexor [Venlafaxin* swelling high blood pressure Januvia [Sitaglipti* GI Upset, Other: See Comments Patient states she couldn't eat Metoprolol Swelling Mobic [Meloxicam] GI Upset Prozac [Fluoxetine * Intolerance tremor Remeron [Mirtazapin* Rash Risperidone Mental Status Change Seroquel [Quetiapin* hypertension,swelling Vancomycin Itching, Other: See Comments, Rash red all over Other reaction(s): Other: See Comments red all over Vioxx [Rofecoxib] GI Upset Wellbutrin [Bupropi* Intolerance nightmares Objective PHYSICAL EXAM: General: alert and oriented (x3), healthy appearance and morbidly obese. Pertinent negatives noted - not distressed. wheelchair. Skin: normal color, no rash or lesions. HEENT: EOM intact and pupils equal round. Pertinent negatives noted - no carotid bruit. Cardiovascular: regular rate and rhythm, normal S1 and S2, no rub, murmurs, or gallop. Respiratory: normal breath sounds, no wheezes or crackles. No chest wall deformity or tenderness. Abdomen: soft. Pertinent negatives noted - not tender. Extremities: Positive for edema (BLE). Neurological: normal cognition and motor skills. Gait normal. No weakness or sensory deficit. PAIN ASSESSMENT: VITALS: BP 118/64 Pulse 78 Temp (Src) 97 (Temporal) Resp 18 Ht 4' 11 (1.50m) Wt 381 lb (172.8kg) SpO2 98% LMP 12/11/2008 BMI 76.91 kg/(m^2). Diagnostic tests reviewed for today's visit: Lab Value Units Date High Low HB 10.1 g/dL 04/04/2021 15.5 11.5 HCT 31.2 % 04/04/2021 46.0 36.0 WBC 4.65 k/uL 04/04/2021 11.00 3.70 PLT 311 k/uL 04/04/2021 400 150 NA 138 mmol/L 04/04/2021 144 136 K 4.6 mmol/L 04/04/2021 5.1 3.7 GLUC 301 mg/dL 04/04/2021 99 74 BUN 14 mg/dL 04/04/2021 21 7 CREAT 0.58 mg/dL 04/04/2021 0.96 0.58 PTSEC No results within date range. INR No results within date range. APTT No results within date range. ALT 15 U/L 01/12/2021 38 7 AST 16 U/L 01/12/2021 35 13 TBILI 0.4 mg/dL 01/12/2021 1.3 0.2 TSH 2.290 uU/mL 01/12/2021 4.200 0.270 Lab Value Units Date High Low HCGQT No results within date range. UHCG No results within date range. HCG, BODY* No results within date range. Lab Value Units Date High Low ABORHD No results within date range. ABSCREEN No results within date range. Hemoglobin A1C (%) Date Value 12/24/2020 7.5 12/13/2020 7.2 08/11/2020 7.4 05/19/2020 7.9 04/08/2019 7.4 No results found for this or any previous visit (from the past 8760 hour(s)). No results found for this or any previous visit (from the past 27047 hour(s)). Assessment Morbid obesity Assessment: Body mass index is 76.95 kg/m . Obstructive sleep apnea Assessment: c/w CPAP Benign hypertensive heart disease with CHF, NYHA class 2 (HCC) Assessment: controlled on rx, echo 02/2021 EF 55% Last 14 BP Last 14 Encounter BP Readings: Date: BP: 07/06/2021 118/64 06/08/2021 127/72 05/25/2021 123/80 05/11/2021 144/86 05/02/2021 120/74 04/27/2021 118/65 04/13/2021 118/63 04/04/2021 132/72 01/28/2021 140/65 01/12/2021 125/61 12/31/2020 120/80 12/30/2020 123/75 12/13/2020 122/76 12/09/2020 131/63 Chronic respiratory failure with hypoxia (HCC) Assessment: oxygen use as needed at home, pulse ox 98% on RA Debility Assessment: h/o, HHC 3/xweek Diaphragmatic hernia Assessment: h/o DVT (deep venous thrombosis) (HCC) Assessment: h/o 2019, tx with AC at the time, no daily AC tx Dysthymia Assessment: stable on rx per pt ESOPHAGEAL REFLUX Assessment: controlled on rx Type 2 diabetes mellitus with peripheral neuropathy (HCC) Assessment: controlled on oral agent Hemoglobin A1C (%) Date Value 07/06/2021 7.6 12/24/2020 7.5 Liver disease Assessment: fatty liver Albumin (g/dL) Date Value 07/06/2021 4.4 Bilirubin, Total (mg/dL) Date Value 07/06/2021 0.4 Bilirubin, Conjug (mg/dL) Date Value 04/08/2019 <0.2 Alkaline Phosphatase (U/L) Date Value 07/06/2021 129 (H) AST (U/L) Date Value 07/06/2021 12 (L) ALT (U/L) Date Value 07/06/2021 11 Protein, Total (g/dL) Date Value 07/06/2021 6.6 Former smoker Assessment: 1ppd/20 years, denies asthma or COPD Pressure injury of skin of thigh Assessment: bilateral thigh, dressing changes, following plastic and wound center, has HHC 3x/week [place] Activity Status Index: METS: DASI Score: 0 Patient is limited most or all of the time (uses scooter, mobility device). Clinical Frailty Scale: 5. Mildly frail STOP-Bang Score: Snores loudly Has or is being treated for high blood pressure BMI greater than 35 kg/m^2 Patient over 50 years old Has a large neck Male patient Denies feeling tired, fatigued, or sleepy during the daytime Has not been observed to stop breathing or choking/gasping during sleep STOP-Bang Score: 6 [id number] Score: Age: <65 Sex: female CHF history: Yes Hypertension history: Yes Stroke/TIA/thromboembolism history: Yes Vascular disease history: No Diabetes history: Yes [id number] Score: 6 ARISCAT Score: Age: 51-80 Preoperative SpO2: >=96% Respiratory infection in the last month: No Preoperative anemia: No Surgical incision: peripheral Duration of surgery: <2 hrs Emergency procedure: No ARISCAT Score: 3 ASA Class: 3 ANESTHESIA FINDINGS: Intubation History: No history of difficult intubation Significant Anesthesia Considerations: none Airway History: No history of difficult airway I - PHYSICAL EVALUATION AIRWAY Tracheostomy tube not present Mallampati: II. TM distance: >3 FB. Neck ROM: limited flexion and extension. Mouth opening: adequate. Short neck: no. DENTAL Dentures, upper: complete. Dentures, lower: complete. II - ANESTHESIA PLAN ASA Score: 3 Anesthetic Plan: other Anesthetic plan additional comments: *PACC/TCI - anesthesia choice. Informed Consent Anesthetic risks, benefits, alternatives, personnel and consent discussed: yes. Patient / Responsible [employer] agrees to proceed: yes Patient / Surrogate agrees to blood products: blood products not planned Prepared for Surgery: optimally prepared for surgery, pending (see comment). Labs CONSULTS: Patient does not require consults for optimization at this time Planned Anesthetic: other anesthesia choice Instructions Given to Patient: Instructions located in the after visit summary. Patient given verbal and written preop instructions and voices comprehension and compliance. SIGNATURE: Sylvia Chaves APRN.CNP PATIENT NAME: Wilton Khan DATE: July 06, 2021 TIME: 2:30 PM PAGER/CONTACT #: documented in this encounterPrem[facility]-03-[facility] Miscellaneous Notes* Telephone Encounter - CIPRIANO Pelletier - 06/21/2021 2:41 PM EDT TC to patient who was given providers message. Patient says that she will do without the pain meds and still wants the prescription for yeast infection [facility] in [place]. Please advise. Thank you. * Telephone Encounter - Nehemiah Herbert MD - 06/21/2021 2:37 PM EDT Let her know I can prescribe it but she cannot use any pain pills(norco) for four days while on it.Still want the meds * Telephone Encounter - Yokasta Reese RN - 06/21/2021 11:58 AM EDT Pt called in and reports she has a yeast infection between her legs and under her abdominal fold. She states it's red and itchy, but is not open at this time. She is requesting that provider send in Diflucan for her to [facility]. Patient has been identified by name and date of : Yes Patient phones for refill(s): Pending Prescriptions Disp Refills FLUCONAZOLE 100 MG TABLET 3 tablet 0 Sig: Take 1 tablet by mouth once daily for 3 days. DWAINE: No Date of last office visit in primary care: 05/02/21 Future visit: 08/12/21 Last 2 Encounter Wt Readings: Date: Wt: 04/29/2021 174.6 kg (385 lb) 04/20/2021 174.6 kg (385 lb) Previous labs/tests for medication: Blood Pressure: BUN (mg/dL) Date Value 04/04/2021 14 Sodium (mmol/L) Date Value 04/04/2021 138 Last 1 Encounter BP Readings: Date: BP: 06/08/2021 127/72 Liver Function: ALT (U/L) Date Value 01/12/2021 15 AST (U/L) Date Value 01/12/2021 16 Please advise. Thank you. Yokasta Reese RN documented in this encounterPrem[facility]04-28-2022 Miscellaneous Notes* Telephone Encounter - Maris Acevedo RN - 06/16/2021 10:21 AM EDT Patient returned call to this RN. States she thinks she would like surgery, but wants to speak withprovider. Forwarded message to Dr. Bhagat. Maris Acevedo RN documented in this encounterPremier Health [facility]04-27-2022 Miscellaneous Notes* Telephone Encounter - Nehemiah Herbert MD - 06/15/2021 2:59 PM EDT Noted. * Telephone Encounter - Katherine Ramirez LPN - 06/15/2021 2:44 PM EDT Marlee with [facility] is re- faxing orders that were signed by Clarita Mathews. The doctor's name on the form has to sign the orders. Please watch for the orders. Katherine Ramirez LPN documented in this encounterPremier Health [facility]04-25-2022 Miscellaneous Notes* Telephone Encounter - Sanjay Abbasi PA-C - 06/13/2021 8:44 AM EDT Reviewed 06/10/21:notes Dr. Myles: retesting PSG, titration and nocturnal desaturation. Continue O2 until he clears. Thanks, Micah Abbasi PA-C * Telephone Encounter - Louie Wade Ma - 06/09/2021 10:23 AM EDT Records faxed back from Dr Myles and placed on provider desk. Louie Wade Ma * Telephone Encounter - Antoine Hall - 06/07/2021 8:29 AM EDT Patient sleep doctor is Dr. Myles. Faxed patient's pulse oximetry report to Dr. Myles explaining patient's request. Will wait to hear from sleep doctor. * Telephone Encounter - Sanjay Abbasi PA-C - 06/06/2021 5:50 PM EDT Who is she seeing for sleep medicine? Sleep med needs to review nocturnal desaturation which is why O2 was not discontinued. If they feel it's not necessary I will d/c. Thanks, Micah Abbasi PA-C * Telephone Encounter - Estefani Bell LPN - 06/06/2021 8:53 AM EDT Pt calls to report she hasn't used O2 for weeks. Pt is asking for an order from the dr for [employer] topick up O2 tank. Pt reports she went to the sleep dr and was told they're going to do another test in a few months and pt does not want O2 tanks sitting around. Call pt with dr's message. Estefani Bell LPN documented in this encounterPremier Health [facility]04-20-2022 NoteHNO ID: [id number] Author: Keya Aparicio APRN.[employer] FI[employer] ROUSTABOUT Service: ? Author Type: Nurse Practitioner Type: Progress Notes Filed: 06/08/2021 11:59 AM Note Text: WOUND CENTER PROGRESS NOTE PATIENT NAME: Wilton Khan DATE OF FOLLOW UP: 06/08/2021 REASON FOR FOLLOW UP: right posterior thigh wound HISTORY OF PRESENT ILLNESS: Wilton Khan is a 61 year old y/o female w/ Hx DM, HTN, CHF, COPD, DJD, morbid obesity, who presents for wound assessment of new right posterior thigh wounds. She states the wounds have been present for about 3 weeks. She has been using a mixture of AANDD ointment and Desitin on the wounds, but they have not improved. She continues to have much difficulty with standing and ambulation d/t chronic bilat knee pain. She sits and sleeps in a recliner chair. She has a gel offloading cushion for her chair. She continues with physical therapy at home for strengthening. She has assistance of [facility] 3x/week. Location: right posterior thigh Onset: June 2020 Aggravating factors: Debility, Diabetes mellitus, Immobility, Positioning and Pressure Wound etiology: Pressure Associated pain with wound: Yes Relieving factors for wound pain: Positioning and Wound care Treatments: Current: silver alginate, Marcus SAP Past: Desitin, AANDD ointment, alginate w/ silver, Triad, Promogran PAST MEDICAL HISTORY Diagnosis Date - Abnormal glandular Papanicolaou smear of cervix 05/30/05 ABNL GLANDULAR PAP SMEAR CERVIX - Acute gastritis without mention of hemorrhage - Anxiety state, unspecified - Arrhythmia - Chronic cholecystitis - Chronic obstructive pulmonary disease (COPD) ([facility]) - Congestive heart failure ([facility]) 10/03/2011 - Diabetes ([facility]) - diabetes II 2010 - Diaphragmatic hernia without mention of obstruction or gangrene - Dysthymic disorder Depression (non-psychotic) - Esophageal reflux - Essential hypertension, benign - Generalized OA - Hyperprolactinemia ([facility]) 10/13/2005 - Localized osteoarthrosis not specified whether primary or secondary, lower leg - Major depressive disorder, recurrent episode - Mucous polyp of cervix 07/19/05 - Other and unspecified anterior pituitary hyperfunction ([facility]) 10/13/05 elevated prolactin level-was normal in 2012 - PMH - PAST MEDICAL HISTORY OF sleep apnea - PMH - PAST MEDICAL HISTORY OF sleep apnea - SVT (supraventricular tachycardia) ([facility]) - 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 - Type 2 diabetes mellitus without complication, with long-term current use of insulin ([facility]) 12/22/2013 PAST SURGICAL HISTORY Procedure Laterality Date - BIOPSY CERVIX SINGLE/MULT/EXCISION OF LESION SPX 07/19/05 endocervical polyp - COLONOSCOPY FLX DX W/COLLJ SPEC WHEN PFRMD 01/09/2012 Colonoscopy repeat 10 years - COLPOSCOPY CERVIX UPPER/ADJACENT VAGINA Colposcopy - EGD TRANSORAL BIOPSY SINGLE/MULTIPLE 01/16/07 - ESOPHAGOGASTRODUODENOSCOPY TRANSORAL DIAGNOSTIC 01/09/2012 EGD - HERNIA REPAIR HX 11/2015 ventral - HYSTEROSCOPY DX 12/17/2014 [facility] - LAPS SURG CHOLECYSTECTOMY W/CHOLANGIOGRAPHY 05/15/08 ALLERGIES ALLERGIES Allergen Reactions - Lyrica [Pregabalin] Anaphylaxis Not sure if accurate. Can take gabapentin. Patient is unsure of reaction. - Accupril [Quinapril* Intolerance dizziness - Actos [Pioglitazone] Swelling - Amlodipine Swelling Leg edema - Atenolol Swelling - Atorvastatin Intolerance Muscle cramps and weakness - Celebrex [Celecoxib] Swelling - Effexor [Venlafaxin* swelling high blood pressure - Januvia [Sitaglipti* GI Upset, Other: See Comments Patient states she couldn't eat - Metoprolol Swelling - Mobic [Meloxicam] GI Upset - Prozac [Fluoxetine * Intolerance tremor - Remeron [Mirtazapin* Rash - Risperidone Mental Status Change - Seroquel [Quetiapin* hypertension,swelling - Vancomycin Itching, Other: See Comments, Rash red all over Other reaction(s): Other: See Comments red all over - Vioxx [Rofecoxib] GI Upset - Wellbutrin [Bupropi* Intolerance nightmares CURRENT OUTPATIENT MEDICATIONS potassium chloride (K-TAB) 10 mEq tablet Take 1 tablet by mouth once daily. furosemide (LASIX) 80 mg tablet Take 1 tablet by mouth twice daily. ARIPiprazole (ABILIFY) 10 mg tablet Take 1 tablet by mouth once daily. pravastatin (PRAVACHOL) 20 mg tablet Take 1 tablet by mouth daily at bedtime. traZODone (DESYREL) 100 mg tablet Take 1 tablet by mouth daily at bedtime. methocarbamol (ROBAXIN) 500 mg tablet Take 1 tablet by mouth twice daily. Cholecalciferol, Vitamin D3, 125 mcg (5,000 unit) cap Take 1 capsule by mouth once daily. ascorbic acid (VITAMIN C ORAL) Take 1 tablet by mouth once daily. nystatin (MYCOSTATIN) powder Apply 1 application to affected area four times daily. Insulin Maljamar, Disposable, (BD ULTRA-FINE MADI PEN NEEDLE) 32 gauge x Use one needle for each dose. 2/day. ibuprofen (MOTRIN) 800 mg tablet Take 1 tablet by mouth (more content not included)...[id number] History of Present illness Narrative* Keya Aparicio APRN.O[employer] FIELD ROUSTABOUT - 06/08/2021 10:06 AM EDT Images from the original note were not included. WOUND CENTER PROGRESS NOTE PATIENT NAME: Wilton Khan DATE OF FOLLOW UP: 06/08/2021 REASON FOR FOLLOW UP: right posterior thigh wound HISTORY OF PRESENT ILLNESS: Wilton Khan is a 61 year old y/o female w/ Hx DM, HTN, CHF, COPD, DJD, morbid obesity, who presents for wound assessment of new right posterior thigh wounds. She states the wounds have been presentfor about 3 weeks. She has been using a mixture of A&D ointment and Desitin on the wounds, but they have not improved. She continues to have much difficulty with standing and ambulation d/t chronic bilat knee pain. She sits and sleeps in a recliner chair. She has a gel offloading cushion for her chair. She continues with physical therapy at home for strengthening. She has assistance of [facility] 3x/week. Location: right posterior thigh Onset: June 2020 Aggravating factors: Debility, Diabetes mellitus, Immobility, Positioning and Pressure Wound etiology: Pressure Associated pain with wound: Yes Relieving factors for wound pain: Positioning and Wound care Treatments: Current: silver alginate, Marcus SAP Past: Desitin, A&D ointment, alginate w/ silver, Triad, Promogran PAST MEDICAL HISTORY Diagnosis Date Abnormal glandular Papanicolaou smear of cervix 05/30/05 ABNL GLANDULAR PAP SMEAR CERVIX Acute gastritis without mention of hemorrhage Anxiety state, unspecified Arrhythmia Chronic cholecystitis Chronic obstructive pulmonary disease (COPD) ([facility]) Congestive heart failure (HCC) 10/03/2011 Diabetes ([facility]) diabetes II 2010 Diaphragmatic hernia without mention of obstruction or gangrene Dysthymic disorder Depression (non-psychotic) Esophageal reflux Essential hypertension, benign Generalized OA Hyperprolactinemia (HCC) 10/13/2005 Localized osteoarthrosis not specified whether primary or secondary, lower leg Major depressive disorder, recurrent episode Mucous polyp of cervix 07/19/05 Other and unspecified anterior pituitary hyperfunction (HCC) 10/13/05 elevated prolactin level-was normal in 2011 PMH - PAST MEDICAL HISTORY OF sleep apnea PMH - PAST MEDICAL HISTORY OF sleep apnea SVT (supraventricular tachycardia) (HCC) 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 Type 2 diabetes mellitus without complication, with long-term current use of insulin (HCC) 12/22/2013 PAST SURGICAL HISTORY Procedure Laterality Date BIOPSY CERVIX SINGLE/MULT/EXCISION OF LESION SPX 07/19/05 endocervical polyp COLONOSCOPY FLX DX W/COLLJ SPEC WHEN PFRMD 01/09/2012 Colonoscopy repeat 10 years COLPOSCOPY CERVIX UPPER/ADJACENT VAGINA Colposcopy EGD TRANSORAL BIOPSY SINGLE/MULTIPLE 01/16/07 ESOPHAGOGASTRODUODENOSCOPY TRANSORAL DIAGNOSTIC 01/09/2012 EGD HERNIA REPAIR HX 11/2015 ventral HYSTEROSCOPY DX 12/17/2014 [facility] LAPS SURG CHOLECYSTECTOMY W/CHOLANGIOGRAPHY 05/15/08 ALLERGIES ALLERGIES Allergen Reactions Lyrica [Pregabalin] Anaphylaxis Not sure if accurate. Can take gabapentin. Patient is unsure of reaction. Accupril [Quinapril* Intolerance dizziness Actos [Pioglitazone] Swelling Amlodipine Swelling Leg edema Atenolol Swelling Atorvastatin Intolerance Muscle cramps and weakness Celebrex [Celecoxib] Swelling Effexor [Venlafaxin* swelling high blood pressure Januvia [Sitaglipti* GI Upset, Other: See Comments Patient states she couldn't eat Metoprolol Swelling Mobic [Meloxicam] GI Upset Prozac [Fluoxetine * Intolerance tremor Remeron [Mirtazapin* Rash Risperidone Mental Status Change Seroquel [Quetiapin* hypertension,swelling Vancomycin Itching, Other: See Comments, Rash red all over Other reaction(s): Other: See Comments red all over Vioxx [Rofecoxib] GI Upset Wellbutrin [Bupropi* Intolerance nightmares CURRENT OUTPATIENT MEDICATIONS potassium chloride (K-TAB) 10 mEq tablet Take 1 tablet by mouth once daily. furosemide (LASIX) 80 mg tablet Take 1 tablet by mouth twice daily. ARIPiprazole (ABILIFY) 10 mg tablet Take 1 tablet by mouth once daily. pravastatin (PRAVACHOL) 20 mg tablet Take 1 tablet by mouth daily at bedtime. traZODone (DESYREL) 100 mg tablet Take 1 tablet by mouth daily at bedtime. methocarbamol (ROBAXIN) 500 mg tablet Take 1 tablet by mouth twice daily. Cholecalciferol, Vitamin D3, 125 mcg (5,000 unit) cap Take 1 capsule by mouth once daily. ascorbic acid (VITAMIN C ORAL) Take 1 tablet by mouth once daily. nystatin (MYCOSTATIN) powder Apply 1 application to affected area four times daily. Insulin Maljamar, Disposable, (BD ULTRA-FINE MADI PEN NEEDLE) 32 gauge x Use one needle for each dose. 2/day. ibuprofen (MOTRIN) 800 mg tablet Take 1 tablet by mouth every 8 hours as needed (FOR PAIN. TAKE WITH FOOD). DULoxetine (CYMBALTA) 60 mg capsule Take 1 capsule by mouth once daily. famotidine (PEPCID) 40 mg tablet Take 1 tablet by mouth once daily. spironolactone (ALDACTONE) 50 mg tablet Take 1 tablet by mouth once daily. blood sugar diagnostic (BLOOD GLUCOSE TEST) test strip Test blood sugars up to 4 times daily as directed. Dx: Type 2 DM - Controlled E11.9 Insulin: Yes. Trumetrix brand lancets (TRUEPLUS LANCETS) 30 gauge Test four times daily Dx: 250.02 nystatin (MYCOSTATIN) cream Apply 1 application to affected area twice daily. polyethylene glycol 3350 (MIRALAX, GLYCOLAX) 17 gram/dose powder Take 17 g by mouth once daily. Blood-Glucose Meter monitoring kit Glucose Meter of Choice - Kit - Dx: Type 2 DM - Controlled E11.9Use twice daily as directed HYDROcodone-acetaminophen (NORCO) 5-325 mg per tablet Take 1 tablet by mouth twice daily as needed for pain for up to 3 days. metFORMIN ER (GLUCOPHAGE XR) 500 mg 24 hr tablet Take 1 tablet by mouth once daily. insulin glargine (LANTUS SOLOSTAR U-100 INSULIN) 100 unit/mL (3 mL) Inject 25 Units subcutaneously twice daily. FAMILY HISTORY Problem Relation Age of Onset Hypertension Mother Heart Mother concha stroke Diabetes Mother Stroke Mother Massive- Arthritis Mother Osteoarthritis Hypertension Father COPD Father Hypertension Sister 2 Hypertension Brother 3 Heart Brother triple bypass at 48 Heart Maternal Aunt Heart Maternal Uncle Diabetes Brother 3 Brother's with diabetes Diabetes Sister Arthritis Sister Arthritis Brother Arthritis Brother Arthritis Brother Social History Tobacco Use Smoking status: Former Smoker Packs/day: 1.00 Years: 15.00 Pack years: 15.00 Types: Cigarettes Quit date: 12/20/1994 Years since quittin.4 Smokeless tobacco: Never Used Vaping Use Vaping Use: Never used Substance Use Topics Alcohol use: No Drug use: No REVIEW OF SYSTEMS: GENERAL: No weight loss, malaise or fevers. RESPIRATORY: Negative for cough, hemoptysis, wheezing, COPD, dyspnea or shortness of breath CARDIOVASCULAR: Negative for chest pain, leg swelling, HTN, CHF or palpitations. GI: No nausea, vomiting, or diarrhea. Negative for incontinence. MUSCULOSKELETAL: Positive for bilat knee pain (chronic) SKIN: Positive for wounds, bilat posterior thighs HEMATOLOGY/LYMPHOLOGY: Negative for prolonged bleeding, bruising easily or swollen nodes NEURO: No history of headaches, syncope, paralysis, seizures or tremors PHYSICAL EXAM: BP 127/72 / Pulse 87 / Resp 20 / Temp 97.5 F / SpO2 96% General appearance: Well appearing, alert, in no acute distress, well-hydrated, well nourished and Morbidly obese Skin: Ecchymotic/dusky discoloration of bilat posterior thigh areas in a follicular pattern. Positive varicosities bilat posterior upper thighs. Wounds, right posterior thigh. (see wound assessment) Head: Normocephalic, no masses, lesions, tenderness or abnormalities Lungs: Respirations even and unlabored Abdomen: morbid obese Musculoskeletal: No joint swelling, deformity, or tenderness, Joint pain: Knees Neuro: Oriented X 3. Wheelchair bound, transfers with assist WOUND ASSESSMENT Wound 5: Location: right posterior thigh Type: pressure injury Stage: 3 Exposed structure:NA Progress: no change Wound measurements (cm): 0.5 x 0.5 x 0.2 Full thickness- Yes Tunneling/undermining: none Wound tissue color: slough Periwound tissue: dry, intact and blanchable dusky discoloration, soft, no induration, no fluctuance Drainage: serous, small Drainage odor: none Wound 6: Location: left posterior thigh Type: pressure injury Stage: 3 Exposed structure:NA Progress: initial Wound measurements (cm): 0.2 x 0.2 x 0.1 Full thickness- Yes Tunneling/undermining: none Wound tissue color: slough Periwound tissue: dry, intact Drainage: none Drainage odor: n/a Comment: new wound noted at time of visit PROCEDURE: Sharp Debridement- right posterior thigh A time out was performed immediately prior to procedure start with the [employer] and team , correctly identifying the patient name, date of , procedure, anatomy, patient position, safety precautions,and procedure-specific equipment needs. The procedure was explained to the patient including the risks, benefits and alternatives. The risks, including but not limited to infection and bleeding, were reviewed by the performing provider andthe patient agrees to undergo the procedure. Written consent was obtained . With appropriate consent the wound was sharply debrided down to and including subcutaneous tissue Total tissue debrided Less than 20 sq.cm Using a sterile currette the wound was debrided. Patient required pre-medication: Lidocaine 2% gel Patient expressed pain during procedure: no Scale: 0 EBL: minimal Wound measurement prior to debridement: 0.5 x 0.5 x 0.2 Wound measurement post debridement: 0.5 x 0.4 x 0.3 Type of tissue debrided: (slough, necrotic, devitalized) Tissue at wound bed after debridment: red Dressing applied after debridement: yes Patient tolerated procedure well without apparent complications. PROCEDURE: Sharp Debridement- left posterior thigh A time out was performed immediately prior to procedure start with the [employer] and team , correctly identifying the patient name, date of , procedure, anatomy, patient position, safety precautions,and procedure-specific equipment needs. The procedure was explained to the patient including the risks, benefits and alternatives. The risks, including but not limited to infection and bleeding, were reviewed by the performing provider andthe patient agrees to undergo the procedure. Written consent was obtained . With appropriate consent the wound was sharply debrided down to and including subcutaneous tissue Total tissue debrided Less than 20 sq.cm Using a sterile currette the wound was debrided. Patient required pre-medication: Lidocaine 2% gel Patient expressed pain during procedure: no Scale: 0 EBL: minimal Wound measurement prior to debridement: 0.2 x 0.2 x 0.1 Wound measurement post debridement: 0.3 x 0.3 x 0.1 Type of tissue debrided: (slough, necrotic, devitalized) Tissue at wound bed after debridment: red Dressing applied after debridement: yes Patient tolerated procedure well without apparent complications. DATA PHOTOGRAPHY:no A photo was taken of the patient's wound(s). Photos can be found under the [facility] images tab on [facility]. The purpose of the photo(s) is to optimize the patient's medical care and allow a visual aid to their wound evaluation and progress. The photo(s) are not intended for publication, education, or research. If the use of the photo is desired in any additional way, other than for the above outlined purposes, then an additional consentfor the intended use will need to be obtained by the requesting provider. Photo was taken of: Verbal consent was obtained: WBC (k/uL) Date Value 04/04/2021 4.65 12/24/2020 5.33 12/13/2020 6.00 Hemoglobin (g/dL) Date Value 04/04/2021 10.1 12/24/2020 13.4 12/13/2020 13.5 PT INR (no units) Date Value 01/13/2019 1.0 Sodium (mmol/L) Date Value 04/04/2021 138 01/12/2021 139 12/24/2020 138 Potassium (mmol/L) Date Value 04/04/2021 4.6 01/12/2021 4.6 12/24/2020 4.7 CO2 (mmol/L) Date Value 04/04/2021 30 01/12/2021 28 12/24/2020 27 BUN (mg/dL) Date Value 04/04/2021 14 01/12/2021 18 12/24/2020 19 AST (U/L) Date Value 01/12/2021 16 12/24/2020 12 12/13/2020 16 ALT (U/L) Date Value 01/12/2021 15 12/24/2020 14 12/13/2020 14 Bilirubin, Total (mg/dL) Date Value 01/12/2021 0.4 12/24/2020 0.4 12/13/2020 0.4 Alkaline Phosphatase (U/L) Date Value 01/12/2021 144 12/24/2020 135 12/13/2020 147 WSR (mm/hr) Date Value 12/13/2020 16 10/20/2017 27 11/17/2015 16 08/10/2015 22 07/26/2015 19 MICROBIOLOGY: Reviewed IMAGING: Reviewed IMPRESSION/RECOMMENDATIONS The patient's age, altered mobility, and other co morbidities are likely to impact wound and skin integrity Additional impediments to healing Diabetic: Yes Anticoagulation: No Antibiotics: No Steroids: No (L89.223) Pressure injury of left thigh, stage 3 (HCC) (L89.213) Pressure injury of right thigh, stage 3 (HCC) Comment: New wound left thigh. No change to right thigh wound, stable, no s/s infection. Right thigh periwound blanchable dusky discoloration, mushy, no fluctuance. Plan: - Cleanse wounds and periwound area with soap and water. Pat dry. Vashe soak to wounds. Skin prep periwound. Apply Triad cream to wounds. Cover with 6x7 Marcus SAP dressing. Change dressing 3x/week and prn. ---may alternately used Triad alone on wounds 2-3x/day - Follow up in wound center in 2 weeks (R53.81) Physical debility Comment: Pt requires some assistance with ADL care and mobility; physical limitations and limited mobility d/t chronic pain (knees), body habitus, and co morbidities. Plan: - Frequent weight shifts when seated - Pressure reduction devices as needed ---pt has offloading cushion for chair - offload as able and tolerated - Continue aggressive nutritional support for optimal wound healing I discussed the plan in detail with the patient and the patient verbalizes understanding and is in agreement. My previous progress note dated 05/25/2021 was copied forward, updated where appropriate, and reflective of current medical decision making today, 06/08/2021. Keya Aparicio APRN, LIZZIE, CWS [employer]ified [employer] June 08, 2021 documented in this encounterPremier Health [facility]04-20-2022 Instructions* Patient Instructions* Winnie Ahuja RN - 06/08/2021 10:00 AM EDT WOUND CARE INSTRUCTIONS- Wilton V Mace Wound location: posterior right thigh cluster wounds [facility]: FAX: [phone] contract administration manager: Ramya Grayson phone: [phone] Wound location: Cluster at bilateral posterior thigh - Gather supplies - Prepare a clean work surface such as new paper towel or newly cleaned towel - Plastic garbage bag for old dressing - Wash your hands with soap and water before and after wound care. - Apply Vashe moistened gauze to wound base and allow to soak for 5-10 minutes, pat dry - paint yoon-wound with skin prep - Apply triad cream to the wound bed - Cover with 6x7 island dressing (I.e. Marcus SAP silicone border dressing) - Change your dressing three times per week and as needed to maintain a clean, dry, & intact dressing - Avoid sitting as much as possible - turning side to side -Patient has gel mattress at home To give your wound the best chance to heal: - Eat three balanced meals daily focusing on the protein - Control your blood sugar. Keep blood sugar less than 200 - Complete your wound care instructions as ordered - Vitamin C 500 mg twice daily - Multiple Vitamin Daily - Drink a protein shake daily - Premiere Clear or Glucerna for Diabetic patients, Nepro for renal patients and premiere for non-renal and non-diabetic patients Report any of the following signs and symptoms of infection to the Wound Center at [phone] or go to the Emergency Department: Fever or chills Increased drainage Green or yellow drainage Foul odor Increased pain Hardness around the wound Redness, warmth or swelling of the surrounding tissue Color change to the wound To give your wound the best chance to heal: - Eat three balanced meals daily focusing on the protein - Control swelling by elevating the extremity above your heart - Control your blood sugar. Keep blood sugar less than 200 - Complete your wound care instructions - Vitamin C 500 mg twice daily - Multiple Vitamin Daily - Drink a protein shake daily Report any of the following changes [phone] or go to the Emergency Department: Fever or chills Increased drainage Green or yellow drainage Foul odor Increased pain Hardness around the wound Redness, warmth or swelling of the surrounding tissue Color change to the wound Plan: 1. Follow-up in the wound center with Keya Aparicio CNP in 2 weeks 2. Continue aggressive nutritional support for optimal wound healing & frequent position changes to relieve pressure on the buttocks Avoid laying on backside Avoid sitting as much as possible Home Care to please order island dressings 6x7 excel sap and skin prep Bring your chair cushion with you to your next wound center visit Keya Aparicio CNP/ness/josé antonio documented in this encounterPremier Health [facility]04-20-2022 Nurse Note* Winnie Ahuja RN - 06/08/2021 10:00 AM EDT Nursing Documentation Pertinent Medical History: DM, HTN, depression, DJD, CHF, COPD, hyperparathyroidism Wound Etiology according to patient: wounds were healed for a month after going to wound center in [place]; re-occurred June 2020 unsure how they occur Patient arrived via: [email or web address] Home Care Company/Nursing Facility: [facility] FAX: [phone] contract administration manager: Ramya Grayson [phone] Consent captured for debridement per Keya Aparicio CNP will be good untill 11/10 Anticoagulant Therapy: none ACTIVE CARE PER PROVIDER: Keya Aparicio CNP WOUND #1 - 4 previously healed WOUND ASSESSMENT: Refer to Provider's Wound Assessment Note VASCULAR ASSESSMENT BY PROVIDER: N/A CHF History: yes per patient EDEMA: N/A - Wound on posterior right thigh Right foot: Right calf: Left foot : Left Calf: Other: MEASUREMENTS: N/A - wounds on posterior right thigh Right Calf: Right Ankle: Left Calf: Left Ankle: Length: WOUND PHOTOGRAPHY: NO DEBRIDEMENT PROCEDURE BY PROVIDER: Anesthetic Used: Lido gel 2% applied per Macarena SALCIDO Wound # : 1 Other procedure: N/A Specimen collected: N/A WOUND TREATMENT PER MD ORDER: WOUND # 5 LOCATION: Right posterior thigh cluster - buttocks L: 0.5 cm x W: 0.5 cm D: 0.2 cm DEBRIDEMENT by provider: sq Post debridement measurements: L: 0.5 cm x W: 0.4 cm x D: 0.3 Cm red area Blanching - soft area 06/08/21 L: 5.5 cm x W: 7.5 cm Cleansed with: vashe' Applied to yoon-wound skin: Triad Applied to wound bed: triad Covered and secured with: WOUND # LOCATION: Left Posterior thigh (NEW 06/08/21) L: 0.2 cm x W: 0.2 cm x D: 0.1 cm DEBRIDEMENT by provider: sq Post debridement measurements: L: 0.3 cm x W: 0.3 cm x D: 0.1 cm Cleansed with: Saline, Vashe' wash Applied to yoon-wound skin: Triad Applied to wound bed: triad Covered and secured with: Marcus SAP 6x7 Other: n/a COMPRESSION: N/A SPECIAL NEEDS: Coordination of care - [facility] manages wound care [facility]; aid service ONLY. [facility] Care - AID SERVICE ONLY FAX: [phone] Emotional support N/A OR set-up N/A Sales Project Engineer N/A Incontinence needs N/A DISCHARGED in stable condition to: Home via wheelchair Global surgical period dates if applicable: N/A Plan: 1. Follow-up in the wound center with Keya Aparicio CNP in 2 weeks 2. Continue aggressive nutritional support for optimal wound healing & frequent position changes to relieve pressure on the buttocks Avoid laying on backside Avoid sitting as much as possible Home Care to please order island dressings 6x7 excel sap Bring your chair cushion with you to your next wound center visit EDUCATION: The patient/family was instructed how to cleanse the wound(s). Visual demonstration on how to applythe dressing with teach back method. Signs & symptoms of infection were reviewed: Increased redness, swelling, pain, green/yellow drainage, fever and/or chills would all need to be evaluated by a Physician. Patient received typed home-going wound care instructions and has expressed intent to comply. OTHER EDUCATION: Education performed regarding lymphedema/edema: Elevation of extremity above the heart for 30 minutes three times daily and as needed Exercise such as writing the ABC's with your toes in the air, walking and/or calf pumps Wearing compression as ordered by provider Diet controlling of sodium as instructed by provider Use of medication to help control edema. UNIVERSAL PROTOCOL / SAFETY CHECKLIST Procedure to be Performed: sharp debridement to right posterior upper thigh/buttock NA Current HBOT Status: Active or Complete - see screening below WOUND CENTER HYPERBARIC OXYGEN THERAPY SCREENING 1. Is the patient diabetic? (If No, skip to question 5) Yes 2. Does the patient have a lower extremity wound? YES 3. Is there exposed/involved tendon or bone? No 4. Has the wound been present for 30 days? no If Yes to ALL questions above, consult the Hyperbaric Center 5. Has the patient been diagnosed with osteomyelitis? No 6. Has the patient had a previous skin graft or flap at the wound? No 7. Has the patient had or been offered vascular intervention/evaluation? No 8. Does the patient have a wound at an amputation site? No 9. Has the patient had radiation therapy at the site of the problem? No If Yes to ANY of questions 5-9, consult the Hyperbaric Center documented in this encounterPremier Health [facility]04-13-2022 Miscellaneous Notes* Telephone Encounter - Emily Garcia RN - 06/01/2021 9:40 AM EDT Patient calls to request over night pulse oximeter testing done through [employer] be faxed to Dr. Myles. Faxed to [phone] per request. Emily Garcia RN documented in this encounterPremier Health [facility]04-11-2022 Miscellaneous Notes* Telephone Encounter - CIPRIANO Pelletier - 05/30/2021 4:31 PM EDT Patient has been identified by name and date of : Yes Patient phones for refill(s): Pending Prescriptions Disp Refills ARIPIPRAZOLE 10 MG TABLET 90 tablet 1 Sig: Take 1 tablet by mouth once daily. DWAINE: No Date of last office visit in primary care: OV on 05/02/2021 Future appointment scheduled for 06/13/2021 Last 2 Encounter Wt Readings: Date: Wt: 04/29/2021 174.6 kg (385 lb) 04/20/2021 174.6 kg (385 lb) Please advise. Thank you. CIPRIANO Pelletier documented in this encounterPremier Health [facility]04-06-2022 NoteHNO ID: [id number] Author: Keya Aparicio APRN.[employer] Service: ? Author Type: Nurse Practitioner Type: Progress Notes Filed: 05/25/2021 12:05 PM Note Text: WOUND CENTER PROGRESS NOTE PATIENT NAME: Wilton Khan DATE OF FOLLOW UP: 05/25/2021 REASON FOR FOLLOW UP: right posterior thigh wound HISTORY OF PRESENT ILLNESS: Wilton Khan is a 61 year old y/o female w/ Hx DM, HTN, CHF, COPD, DJD, morbid obesity, who presents for wound assessment of new right posterior thigh wounds. She states the wounds have been present for about 3 weeks. She has been using a mixture of AANDD ointment and Desitin on the wounds, but they have not improved. She continues to have much difficulty with standing and ambulation d/t chronic bilat knee pain. She sits and sleeps in a recliner chair. She has a gel offloading cushion for her chair. She continues with physical therapy at home for strengthening. She has assistance of [facility] once a week. Location: right posterior thigh Onset: June 2020 Aggravating factors: Debility, Diabetes mellitus, Immobility, Positioning and Pressure Wound etiology: Pressure Associated pain with wound: Yes Relieving factors for wound pain: Positioning and Wound care Treatments: Current: Triad, Marcus SAP Past: Desitin, AANDD ointment, alginate w/ silver, Triad, Promogran PAST MEDICAL HISTORY Diagnosis Date - Abnormal glandular Papanicolaou smear of cervix 05/30/05 ABNL GLANDULAR PAP SMEAR CERVIX - Acute gastritis without mention of hemorrhage - Anxiety state, unspecified - Arrhythmia - Chronic cholecystitis - Chronic obstructive pulmonary disease (COPD) ([facility]) - Congestive heart failure ([facility]) 10/03/2011 - Diabetes ([facility]) - diabetes II 2010 - Diaphragmatic hernia without mention of obstruction or gangrene - Dysthymic disorder Depression (non-psychotic) - Esophageal reflux - Essential hypertension, benign - Generalized OA - Hyperprolactinemia ([facility]) 10/13/2005 - Localized osteoarthrosis not specified whether primary or secondary, lower leg - Major depressive disorder, recurrent episode - Mucous polyp of cervix 07/19/05 - Other and unspecified anterior pituitary hyperfunction ([facility]) 10/13/05 elevated prolactin level-was normal in 2011 - PMH - PAST MEDICAL HISTORY OF sleep apnea - PMH - PAST MEDICAL HISTORY OF sleep apnea - SVT (supraventricular tachycardia) ([facility]) - 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 - Type 2 diabetes mellitus without complication, with long-term current use of insulin ([facility]) 12/22/2013 PAST SURGICAL HISTORY Procedure Laterality Date - BIOPSY CERVIX SINGLE/MULT/EXCISION OF LESION SPX 07/19/05 endocervical polyp - COLONOSCOPY FLX DX W/COLLJ SPEC WHEN PFRMD 01/09/2012 Colonoscopy repeat 10 years - COLPOSCOPY CERVIX UPPER/ADJACENT VAGINA Colposcopy - EGD TRANSORAL BIOPSY SINGLE/MULTIPLE 01/16/07 - ESOPHAGOGASTRODUODENOSCOPY TRANSORAL DIAGNOSTIC 01/09/2012 EGD - HERNIA REPAIR HX 11/2015 ventral - HYSTEROSCOPY DX 12/17/2014 [facility] - LAPS SURG CHOLECYSTECTOMY W/CHOLANGIOGRAPHY 05/15/08 ALLERGIES ALLERGIES Allergen Reactions - Lyrica [Pregabalin] Anaphylaxis Not sure if accurate. Can take gabapentin. Patient is unsure of reaction. - Accupril [Quinapril* Intolerance dizziness - Actos [Pioglitazone] Swelling - Amlodipine Swelling Leg edema - Atenolol Swelling - Atorvastatin Intolerance Muscle cramps and weakness - Celebrex [Celecoxib] Swelling - Effexor [Venlafaxin* swelling high blood pressure - Januvia [Sitaglipti* GI Upset, Other: See Comments Patient states she couldn't eat - Metoprolol Swelling - Mobic [Meloxicam] GI Upset - Prozac [Fluoxetine * Intolerance tremor - Remeron [Mirtazapin* Rash - Risperidone Mental Status Change - Seroquel [Quetiapin* hypertension,swelling - Vancomycin Itching, Other: See Comments, Rash red all over Other reaction(s): Other: See Comments red all over - Vioxx [Rofecoxib] GI Upset - Wellbutrin [Bupropi* Intolerance nightmares CURRENT OUTPATIENT MEDICATIONS pravastatin (PRAVACHOL) 20 mg tablet Take 1 tablet by mouth daily at bedtime. HYDROcodone-acetaminophen (NORCO) 5-325 mg per tablet Take 1 tablet by mouth twice daily as needed for pain for up to 3 days. potassium chloride (K-TAB) 10 mEq tablet Take 1 tablet by mouth once daily. traZODone (DESYREL) 100 mg tablet Take 1 tablet by mouth daily at bedtime. methocarbamol (ROBAXIN) 500 mg tablet Take 1 tablet by mouth twice daily. Cholecalciferol, Vitamin D3, 125 mcg (5,000 unit) cap Take 1 capsule by mouth once daily. ascorbic acid (VITAMIN C ORAL) Take 1 tablet by mouth once daily. nystatin (MYCOSTATIN) powder Apply 1 application to affected area four times daily. Insulin Maljamar, Disposable, (BD ULTRA-FINE MADI PEN NEEDLE) 32 gauge x 5/32 Use one needle for each dose. 2/day. ibuprofen (MOTRIN) 800 mg tablet Take 1 tablet by mouth every 8 hours as n (more content not included)...[facility] [id number] Nurse Note* Yokasta Soliman RN - 05/25/2021 10:39 AM EDT Nursing Documentation Pertinent Medical History: DM, HTN, depression, DJD, CHF, COPD, hyperparathyroidism Wound Etiology according to patient: wounds were healed for a month after going to wound center in [place]; re-occurred June 2020 unsure how they occur Patient arrived via: [email or web address] Home Care Company/Nursing Facility: [facility] FAX: [phone] contract administration manager: Ramya Grayson [phone] Consent captured for debridement per Keya Aparicio CNP will be good untill 11/10 Anticoagulant Therapy: none ACTIVE CARE PER PROVIDER: Keya Aparicio CNP WOUND #1 - 4 previously healed WOUND ASSESSMENT: Refer to Provider's Wound Assessment Note VASCULAR ASSESSMENT BY PROVIDER: N/A CHF History: yes per patient EDEMA: N/A - Wound on posterior right thigh Right foot: Right calf: Left foot : Left Calf: Other: MEASUREMENTS: N/A - wounds on posterior right thigh Right Calf: Right Ankle: Left Calf: Left Ankle: Length: WOUND PHOTOGRAPHY: NO DEBRIDEMENT PROCEDURE BY PROVIDER: Anesthetic Used: Lido gel 2% applied per Christina Tran RN Wound # : 1 Other procedure: N/A Specimen collected: N/A WOUND TREATMENT PER MD ORDER: WOUND # 5 LOCATION: Right posterior thigh cluster - buttocks L: 0.5 cm x W: 0.5 cm D: 0.2 cm DEBRIDEMENT by provider: NA Cleansed with: Saline, Vashe' wash Applied to yoon-wound skin: skin prep Applied to wound bed: Calcium Alginate Ag Covered and secured with: Marcus SAP 6x7 Other: n/a COMPRESSION: N/A SPECIAL NEEDS: Coordination of care - [facility] manages wound care [facility]; aid service ONLY. [facility] Care - AID SERVICE ONLY FAX: [phone] Emotional support N/A OR set-up N/A Sales Project Engineer N/A Incontinence needs N/A DISCHARGED in stable condition to: Home via wheelchair Global surgical period dates if applicable: N/A Plan: 1. Follow-up in the wound center with Keya Aparicio CNP in 2 - 3 weeks 2. Continue aggressive nutritional support for optimal wound healing & frequent position changes to relieve pressure on the buttocks EDUCATION: The patient/family was instructed how to cleanse the wound(s). Visual demonstration on how to applythe dressing with teach back method. Signs & symptoms of infection were reviewed: Increased redness, swelling, pain, green/yellow drainage, fever and/or chills would all need to be evaluated by a Physician. Patient received typed home-going wound care instructions and has expressed intent to comply. OTHER EDUCATION: Education performed regarding lymphedema/edema: Elevation of extremity above the heart for 30 minutes three times daily and as needed Exercise such as writing the ABC's with your toes in the air, walking and/or calf pumps Wearing compression as ordered by provider Diet controlling of sodium as instructed by provider Use of medication to help control edema. UNIVERSAL PROTOCOL / SAFETY CHECKLIST Procedure to be Performed: sharp debridement to right posterior upper thigh/buttock NA Current HBOT Status: Active or Complete - see screening below WOUND CENTER HYPERBARIC OXYGEN THERAPY SCREENING 1. Is the patient diabetic? (If No, skip to question 5) Yes 2. Does the patient have a lower extremity wound? YES 3. Is there exposed/involved tendon or bone? No 4. Has the wound been present for 30 days? no If Yes to ALL questions above, consult the Hyperbaric Center 5. Has the patient been diagnosed with osteomyelitis? No 6. Has the patient had a previous skin graft or flap at the wound? No 7. Has the patient had or been offered vascular intervention/evaluation? No 8. Does the patient have a wound at an amputation site? No 9. Has the patient had radiation therapy at the site of the problem? No If Yes to ANY of questions 5-9, consult the Hyperbaric Center Yokasta GARCÍA, RN, CWKTN Christina Galloway RN documented in this encounterPremier Health [facility]04-06-2022 Instructions* Patient Instructions* Yokasta Soliman RN - 05/25/2021 10:38 AM EDT WOUND CARE INSTRUCTIONS- Wilton Khan Wound location: posterior right thigh cluster wounds [facility]: FAX: [phone] contract administration manager: Ramya Grayson phone: [phone] Wound location: Cluster at right posterior thigh - Gather supplies - Prepare a clean work surface such as new paper towel or newly cleaned towel - Plastic garbage bag for old dressing - Wash your hands with soap and water before and after wound care. - Apply Vashe moistened gauze to wound base and allow to soak for 5-10 minutes - Apply Calcium Alginate Ag to the wound bed - Cover with 6x7 island dressing (I.e. Marcus SAP silicone border dressing) - Change your dressing three times per week and as needed to maintain a clean, dry, & intact dressing - Avoid sitting as much as possible - turning side to side -Patient has gel mattress at home To give your wound the best chance to heal: - Eat three balanced meals daily focusing on the protein - Control your blood sugar. Keep blood sugar less than 200 - Complete your wound care instructions as ordered - Vitamin C 500 mg twice daily - Multiple Vitamin Daily - Drink a protein shake daily - Premiere Clear or Glucerna for Diabetic patients, Nepro for renal patients and premiere for non-renal and non-diabetic patients Report any of the following signs and symptoms of infection to the Wound Center at [phone] or go to the Emergency Department: Fever or chills Increased drainage Green or yellow drainage Foul odor Increased pain Hardness around the wound Redness, warmth or swelling of the surrounding tissue Color change to the wound To give your wound the best chance to heal: - Eat three balanced meals daily focusing on the protein - Control swelling by elevating the extremity above your heart - Control your blood sugar. Keep blood sugar less than 200 - Complete your wound care instructions - Vitamin C 500 mg twice daily - Multiple Vitamin Daily - Drink a protein shake daily Report any of the following changes [phone] or go to the Emergency Department: Fever or chills Increased drainage Green or yellow drainage Foul odor Increased pain Hardness around the wound Redness, warmth or swelling of the surrounding tissue Color change to the wound Plan: 1. Follow-up in the wound center with Keya Aparicio CNP in 2 weeks 2. Continue aggressive nutritional support for optimal wound healing & frequent position changes to relieve pressure on the buttocks Keya Aparicio CNP/lena/tr documented in this encounterPrem[facility] History of Present illness Narrative* Keya Aparicio APRN.OIL FIELD ROUSTABOUT - 05/25/2021 10:07 AM EDT Images from the original note were not included. WOUND CENTER PROGRESS NOTE PATIENT NAME: Wilton Khan DATE OF FOLLOW UP: 05/25/2021 REASON FOR FOLLOW UP: right posterior thigh wound HISTORY OF PRESENT ILLNESS: Wilton Khan is a 61 year old y/o female w/ Hx DM, HTN, CHF, COPD, DJD, morbid obesity, who presents for wound assessment of new right posterior thigh wounds. She states the wounds have been presentfor about 3 weeks. She has been using a mixture of A&D ointment and Desitin on the wounds, but they have not improved. She continues to have much difficulty with standing and ambulation d/t chronic bilat knee pain. She sits and sleeps in a recliner chair. She has a gel offloading cushion for her chair. She continues with physical therapy at home for strengthening. She has assistance of [facility] once a week. Location: right posterior thigh Onset: June 2020 Aggravating factors: Debility, Diabetes mellitus, Immobility, Positioning and Pressure Wound etiology: Pressure Associated pain with wound: Yes Relieving factors for wound pain: Positioning and Wound care Treatments: Current: Triad, Marcus SAP Past: Desitin, A&D ointment, alginate w/ silver, Triad, Promogran PAST MEDICAL HISTORY Diagnosis Date Abnormal glandular Papanicolaou smear of cervix 05/30/05 ABNL GLANDULAR PAP SMEAR CERVIX Acute gastritis without mention of hemorrhage Anxiety state, unspecified Arrhythmia Chronic cholecystitis Chronic obstructive pulmonary disease (COPD) (HCC) Congestive heart failure (HCC) 10/03/2011 Diabetes ([facility]) diabetes II 2010 Diaphragmatic hernia without mention of obstruction or gangrene Dysthymic disorder Depression (non-psychotic) Esophageal reflux Essential hypertension, benign Generalized OA Hyperprolactinemia (HCC) 10/13/2005 Localized osteoarthrosis not specified whether primary or secondary, lower leg Major depressive disorder, recurrent episode Mucous polyp of cervix 07/19/05 Other and unspecified anterior pituitary hyperfunction (HCC) 10/13/05 elevated prolactin level-was normal in 2011 PMH - PAST MEDICAL HISTORY OF sleep apnea PMH - PAST MEDICAL HISTORY OF sleep apnea SVT (supraventricular tachycardia) (HCC) 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 Type 2 diabetes mellitus without complication, with long-term current use of insulin (HCC) 12/22/2013 PAST SURGICAL HISTORY Procedure Laterality Date BIOPSY CERVIX SINGLE/MULT/EXCISION OF LESION SPX 07/19/05 endocervical polyp COLONOSCOPY FLX DX W/COLLJ SPEC WHEN PFRMD 01/09/2012 Colonoscopy repeat 10 years COLPOSCOPY CERVIX UPPER/ADJACENT VAGINA Colposcopy EGD TRANSORAL BIOPSY SINGLE/MULTIPLE 01/16/07 ESOPHAGOGASTRODUODENOSCOPY TRANSORAL DIAGNOSTIC 01/09/2012 EGD HERNIA REPAIR HX 11/2015 ventral HYSTEROSCOPY DX 12/17/2014 D&C LAPS SURG CHOLECYSTECTOMY W/CHOLANGIOGRAPHY 05/15/08 ALLERGIES ALLERGIES Allergen Reactions Lyrica [Pregabalin] Anaphylaxis Not sure if accurate. Can take gabapentin. Patient is unsure of reaction. Accupril [Quinapril* Intolerance dizziness Actos [Pioglitazone] Swelling Amlodipine Swelling Leg edema Atenolol Swelling Atorvastatin Intolerance Muscle cramps and weakness Celebrex [Celecoxib] Swelling Effexor [Venlafaxin* swelling high blood pressure Januvia [Sitaglipti* GI Upset, Other: See Comments Patient states she couldn't eat Metoprolol Swelling Mobic [Meloxicam] GI Upset Prozac [Fluoxetine * Intolerance tremor Remeron [Mirtazapin* Rash Risperidone Mental Status Change Seroquel [Quetiapin* hypertension,swelling Vancomycin Itching, Other: See Comments, Rash red all over Other reaction(s): Other: See Comments red all over Vioxx [Rofecoxib] GI Upset Wellbutrin [Bupropi* Intolerance nightmares CURRENT OUTPATIENT MEDICATIONS pravastatin (PRAVACHOL) 20 mg tablet Take 1 tablet by mouth daily at bedtime. HYDROcodone-acetaminophen (NORCO) 5-325 mg per tablet Take 1 tablet by mouth twice daily as needed for pain for up to 3 days. potassium chloride (K-TAB) 10 mEq tablet Take 1 tablet by mouth once daily. traZODone (DESYREL) 100 mg tablet Take 1 tablet by mouth daily at bedtime. methocarbamol (ROBAXIN) 500 mg tablet Take 1 tablet by mouth twice daily. Cholecalciferol, Vitamin D3, 125 mcg (5,000 unit) cap Take 1 capsule by mouth once daily. ascorbic acid (VITAMIN C ORAL) Take 1 tablet by mouth once daily. nystatin (MYCOSTATIN) powder Apply 1 application to affected area four times daily. Insulin Maljamar, Disposable, (BD ULTRA-FINE MADI PEN NEEDLE) 32 gauge x 32 Use one needle for each dose. 2/day. ibuprofen (MOTRIN) 800 mg tablet Take 1 tablet by mouth every 8 hours as needed (FOR PAIN. TAKE WITH FOOD). ARIPiprazole (ABILIFY) 10 mg tablet Take 1 tablet by mouth once daily. DULoxetine (CYMBALTA) 60 mg capsule Take 1 capsule by mouth once daily. furosemide (LASIX) 80 mg tablet Take 1 tablet by mouth once daily. metFORMIN ER (GLUCOPHAGE XR) 500 mg 24 hr tablet Take 1 tablet by mouth once daily. insulin glargine (LANTUS SOLOSTAR U-100 INSULIN) 100 unit/mL (3 mL) Inject 25 Units subcutaneously twice daily. famotidine (PEPCID) 40 mg tablet Take 1 tablet by mouth once daily. spironolactone (ALDACTONE) 50 mg tablet Take 1 tablet by mouth once daily. blood sugar diagnostic (BLOOD GLUCOSE TEST) test strip Test blood sugars up to 4 times daily as directed. Dx: Type 2 DM - Controlled E11.9 Insulin: Yes. Trumetrix brand lancets (TRUEPLUS LANCETS) 30 gauge Test four times daily Dx: 250.02 nystatin (MYCOSTATIN) cream Apply 1 application to affected area twice daily. polyethylene glycol 3350 (MIRALAX, GLYCOLAX) 17 gram/dose powder Take 17 g by mouth once daily. Blood-Glucose Meter monitoring kit Glucose Meter of Choice - Kit - Dx: Type 2 DM - Controlled E11.9Use twice daily as directed FAMILY HISTORY Problem Relation Age of Onset Hypertension Mother Heart Mother concha stroke Diabetes Mother Stroke Mother Massive- Arthritis Mother Osteoarthritis Hypertension Father COPD Father Hypertension Sister 2 Hypertension Brother 3 Heart Brother triple bypass at 48 Heart Maternal Aunt Heart Maternal Uncle Diabetes Brother 3 Brother's with diabetes Diabetes Sister Arthritis Sister Arthritis Brother Arthritis Brother Arthritis Brother Social History Tobacco Use Smoking status: Former Smoker Packs/day: 1.00 Years: 15.00 Pack years: 15.00 Types: Cigarettes Quit date: 12/20/1994 Years since quittin.4 Smokeless tobacco: Never Used Vaping Use Vaping Use: Never used Substance Use Topics Alcohol use: No Drug use: No REVIEW OF SYSTEMS: GENERAL: No weight loss, malaise or fevers. RESPIRATORY: Negative for cough, hemoptysis, wheezing, COPD, dyspnea or shortness of breath CARDIOVASCULAR: Negative for chest pain, leg swelling, HTN, CHF or palpitations. GI: No nausea, vomiting, or diarrhea. Negative for incontinence. MUSCULOSKELETAL: Positive for bilat knee pain (chronic) SKIN: Positive for wound, right posterior thigh HEMATOLOGY/LYMPHOLOGY: Negative for prolonged bleeding, bruising easily or swollen nodes NEURO: No history of headaches, syncope, paralysis, seizures or tremors PHYSICAL EXAM: BP 123/80 / Pulse 82 / Resp 20 / Temp 97.3 F / SpO2 94% General appearance: Well appearing, alert, in no acute distress, well-hydrated, well nourished and Morbidly obese Skin: Ecchymotic/dusky discoloration of bilat posterior thigh areas in a follicular pattern. Positive varicosities bilat posterior upper thighs. Wounds, right posterior thigh. (see wound assessment) Head: Normocephalic, no masses, lesions, tenderness or abnormalities Lungs: Respirations even and unlabored Abdomen: morbid obese Musculoskeletal: No joint swelling, deformity, or tenderness, Joint pain: Knees Neuro: Oriented X 3. Wheelchair bound, transfers with assist WOUND ASSESSMENT Wound 5: Location: right posterior thigh cluster Type: pressure injury Stage: 3 Exposed structure:NA Progress: improved Wound measurements (cm): 0.5 x 0.5 x 0.2 Full thickness- Yes Tunneling/undermining: none Wound tissue color: red Periwound tissue: dry, intact and blanchable dusky discoloration, no induration Drainage: serosanguinous, small Drainage odor: none DATA PHOTOGRAPHY:no A photo was taken of the patient's wound(s). Photos can be found under the [facility] images tab on [facility]. The purpose of the photo(s) is to optimize the patient's medical care and allow a visual aid to their wound evaluation and progress. The photo(s) are not intended for publication, education, or research. If the use of the photo is desired in any additional way, other than for the above outlined purposes, then an additional consentfor the intended use will need to be obtained by the requesting provider. Photo was taken of: Verbal consent was obtained: WBC (k/uL) Date Value 04/04/2021 4.65 12/24/2020 5.33 12/13/2020 6.00 Hemoglobin (g/dL) Date Value 04/04/2021 10.1 12/24/2020 13.4 12/13/2020 13.5 PT INR (no units) Date Value 01/13/2019 1.0 Sodium (mmol/L) Date Value 04/04/2021 138 01/12/2021 139 12/24/2020 138 Potassium (mmol/L) Date Value 04/04/2021 4.6 01/12/2021 4.6 12/24/2020 4.7 CO2 (mmol/L) Date Value 04/04/2021 30 01/12/2021 28 12/24/2020 27 BUN (mg/dL) Date Value 04/04/2021 14 01/12/2021 18 12/24/2020 19 AST (U/L) Date Value 01/12/2021 16 12/24/2020 12 12/13/2020 16 ALT (U/L) Date Value 01/12/2021 15 12/24/2020 14 12/13/2020 14 Bilirubin, Total (mg/dL) Date Value 01/12/2021 0.4 12/24/2020 0.4 12/13/2020 0.4 Alkaline Phosphatase (U/L) Date Value 01/12/2021 144 12/24/2020 135 12/13/2020 147 WSR (mm/hr) Date Value 12/13/2020 16 10/20/2017 27 11/17/2015 16 08/10/2015 22 07/26/2015 19 MICROBIOLOGY: Reviewed IMAGING: Reviewed IMPRESSION/RECOMMENDATIONS The patient's age, altered mobility, and other co morbidities are likely to impact wound and skin integrity Additional impediments to healing Diabetic: Yes Anticoagulation: No Antibiotics: No Steroids: No (L89.213) Pressure injury of right thigh, stage 3 (HCC) Comment: Wound improved. No s/s infection. Plan: - Cleanse wound and periwound area with soap and water. Pat dry. Vashe soak to wound. Apply calciumalginate to wound. Cover with 6x7 Marcus SAP dressing. Change dressing 3x/week and prn. ---may alternately used Triad alone on wound 2-3x/day - Follow up in wound center in 2 weeks (R53.81) Physical debility Comment: Pt requires some assistance with ADL care and mobility; physical limitations and limited mobility d/t chronic pain (knees), body habitus, and co morbidities. Plan: - Frequent weight shifts when seated - Pressure reduction devices as needed ---pt has offloading cushion for chair - offload as able and tolerated - Continue aggressive nutritional support for optimal wound healing I discussed the plan in detail with the patient and the patient verbalizes understanding and is in agreement. My previous progress note dated 05/11/2021 was copied forward, updated where appropriate, and reflective of current medical decision making today, 05/25/2021. Keya Aparicio APRN, LIZZIE, CWS [employer]ified [employer] May 25, 2021 documented in this encounterPremier [facility]04-01-2022 Miscellaneous Notes* Telephone Encounter - Linh Ramirez LPN - 05/20/2021 1:57 PM EDT Phone call placed patient advised Consult to Sleep Medicine, reported currently scheduled with Dr. Duenas 06/03/2021. Linh Ramirez LPN * Telephone Encounter - Nehemiah Herbert MD - 05/20/2021 12:41 PM EDT Ok, I would suggest seeing sleep med * Telephone Encounter - Linh Ramirez LPN - 05/20/2021 10:42 AM EDT Phone call placed patient advised pulse ox was taken while on Bipap x2 hours, reported fatigue, waking up quite a few times, unable to provide information on snoring. Linh Ramirez LPN * Telephone Encounter - Nehemiah Herbert MD - 05/20/2021 9:58 AM EDT Was she wearing her bipap while she was doing it? Does her bipap at night seem to be doing ok? No snoring or fatigue on awakening.? * Telephone Encounter - Brittany Valencia LPN - 05/20/2021 9:22 AM EDT Patient states that did this test while on room air. Normally wears bipap with no extra oxygen. * Telephone Encounter - Nehemiah Herbert MD - 05/19/2021 5:58 PM EDT Her nocturnal pulse ox from [employer] shows she does qualify for oxygen. Is she currently using oxygen at night while sleeping? documented in this encounterPremier [facility]03-28-2022 Miscellaneous Notes* Telephone Encounter - Louie Wade Ma - 05/16/2021 12:08 PM EDT Attempted to call 2 times, call answers but can only hear clicking, no person. * Telephone Encounter - Nehemiah Herbert MD - 05/16/2021 8:45 AM EDT agree * Telephone Encounter - Marlee Pennington RN - 05/16/2021 8:26 AM EDT Erna from [facility] calls to report that she visited patient on Sunday and recertified patient for [facility] for wound care. Erna reports that the wound is healing pretty good. Erna medellint they will be seeing patient for maybe 3-4 more weeks. Please review and advise, Marlee Pennington RN documented in this encounterPremier Health [facility]03-23-2022 NoteHNO ID: [id number] Author: Keya Aparicio APRN.OIL FIELD ROUSTABOUT Service: ? Author Type: Nurse Practitioner Type: Progress Notes Filed: 05/11/2021 12:35 PM Note Text: WOUND CENTER PROGRESS NOTE PATIENT NAME: Wilton Khan DATE OF FOLLOW UP: 05/11/2021 REASON FOR FOLLOW UP: right posterior thigh wounds HISTORY OF PRESENT ILLNESS: Wilton Khan is a 61 year old y/o female w/ Hx DM, HTN, CHF, COPD, DJD, morbid obesity, who presents for wound assessment of new right posterior thigh wounds. She states the wounds have been present for about 3 weeks. She has been using a mixture of AANDD ointment and Desitin on the wounds, but they have not improved. She continues to have much difficulty with standing and ambulation d/t chronic bilat knee pain. She sits and sleeps in a recliner chair. She does have a gel cushion for her chair. She has started physical therapy at home for strengthening. She has assistance of [facility] once a week. Location: right posterior thigh Onset: June 2020 Aggravating factors: Debility, Diabetes mellitus, Immobility, Positioning and Pressure Wound etiology: Pressure Associated pain with wound: Yes Relieving factors for wound pain: Positioning and Wound care Treatments: Current: Triad, border gauze Past: Desitin, AANDD ointment, alginate w/ silver, Triad, Promogran PAST MEDICAL HISTORY Diagnosis Date - Abnormal [...] Essential hypertension, benign - Generalized OA - Hyperprolactinemia (HCC) 10/13/2005 - Localized osteoarthrosis not specified whether primary or secondary, lower leg - Major depressive disorder, recurrent episode - Mucous polyp of cervix 07/19/05 - Other and unspecified anterior pituitary hyperfunction (HCC) 10/13/05 elevated prolactin level-was normal in 2011 - PMH - PAST MEDICAL HISTORY OF sleep apnea - PMH - PAST MEDICAL HISTORY OF sleep apnea - SVT (supraventricular tachycardia) ([facility]) - 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 - Type 2 diabetes mellitus without complication, with long-term current use of insulin ([facility]) 12/22/2013 PAST SURGICAL HISTORY Procedure Laterality Date - BIOPSY CERVIX SINGLE/MULT/EXCISION OF LESION SPX 07/19/05 endocervical polyp - COLONOSCOPY FLX DX W/COLLJ SPEC WHEN PFRMD 01/09/2012 Colonoscopy repeat 10 years - COLPOSCOPY CERVIX UPPER/ADJACENT VAGINA Colposcopy - EGD TRANSORAL BIOPSY SINGLE/MULTIPLE 01/16/07 - ESOPHAGOGASTRODUODENOSCOPY TRANSORAL DIAGNOSTIC 01/09/2012 EGD - HERNIA REPAIR HX 11/2015 ventral - HYSTEROSCOPY DX 12/17/2014 [facility] - LAPS SURG CHOLECYSTECTOMY W/CHOLANGIOGRAPHY 05/15/08 ALLERGIES ALLERGIES Allergen Reactions - Lyrica [Pregabalin] Anaphylaxis Not sure if accurate. Can take gabapentin. Patient is unsure of reaction. - Accupril [Quinapril* Intolerance dizziness - Actos [Pioglitazone] Swelling - Amlodipine Swelling Leg edema - Atenolol Swelling - Atorvastatin Intolerance Muscle cramps and weakness - Celebrex [Celecoxib] Swelling - Effexor [Venlafaxin* swelling high blood pressure - Januvia [Sitaglipti* GI Upset, Other: See Comments Patient states she couldn't eat - Metoprolol Swelling - Mobic [Meloxicam] GI Upset - Prozac [Fluoxetine * Intolerance tremor - Remeron [Mirtazapin* Rash - Risperidone Mental Status Change - Seroquel [Quetiapin* hypertension,swelling - Vancomycin Itching, Other: See Comments, Rash red all over Other reaction(s): Other: See Comments red all over - Vioxx [Rofecoxib] GI Upset - Wellbutrin [Bupropi* Intolerance nightmares CURRENT OUTPATIENT MEDICATIONS HYDROcodone-acetaminophen (NORCO) 5-325 mg per tablet Take 1 tablet by mouth twice daily as needed for pain for up to 3 days. metFORMIN ER (GLUCOPHAGE XR) 500 mg 24 hr tablet Take 1 tablet by mouth once daily. pravastatin (PRAVACHOL) 20 mg tablet Take 1 tablet by mouth daily at bedtime. ARTHRITIS PAIN RELIEF 650 mg CR tablet Take 1 tablet by mouth every 6 hours as needed. potassium chloride (K-TAB) 10 mEq tablet Take 1 tablet by mouth once daily. traZODone (DESYREL) 100 mg tablet Take 1 tablet by mouth daily at bedtime. methocarbamol (ROBAXIN) 500 mg tablet Take 1 tablet by mouth twice daily. Cholecalciferol, Vitamin D3, 125 mcg (5,000 unit) cap Take 1 capsule by mouth once daily. ascorbic acid (VITAMIN C ORAL) Take 1 tablet by mouth once daily. nystatin (MYCOSTATIN) powder Apply 1 application to affected area four times daily. Insulin Maljamar, D (more content not included)...[facility] [id number] Note HNO ID: [id number] Author: Keya Aparicio APRN.OIL FIELD ROUSTABOUT Service: ? Author Type: Nurse Practitioner Type: Progress Notes Filed: 04/27/2021 10:40 AM Note Text: WOUND CENTER PROGRESS NOTE PATIENT NAME: Wilton Khan DATE OF FOLLOW UP: 04/27/2021 REASON FOR FOLLOW UP: right posterior thigh wounds HISTORY OF PRESENT ILLNESS: Wilton Khan is a 61 year old y/o female w/ Hx DM, HTN, CHF, COPD, DJD, morbid obesity, who presents for wound assessment of new right posterior thigh wounds. She states the wounds have been present for about 3 weeks. She has been using a mixture of AANDD ointment and Desitin on the wounds, but they have not improved. She continues to have much difficulty with standing and ambulation d/t chronic bilat knee pain. She sits and sleeps in a recliner chair. She does have a gel cushion for her chair. She has assistance of [facility] once a week. Location: right posterior thigh Onset: June 2020 Aggravating factors: Debility, Diabetes mellitus, Immobility, Positioning and Pressure Wound etiology: Pressure Associated pain with wound: Yes Relieving factors for wound pain: Positioning and Wound care Treatments: Current: Triad Past: Desitin, AANDD ointment, alginate w/ silver, Triad, Promogran PAST MEDICAL HISTORY Diagnosis Date - Abnormal glandular Papanicolaou smear of cervix 05/30/05 ABNL GLANDULAR PAP SMEAR CERVIX - Acute gastritis without mention of hemorrhage - Anxiety state, unspecified - Arrhythmia - Chronic cholecystitis - Chronic obstructive pulmonary disease (COPD) ([facility]) - Congestive heart failure ([facility]) 10/03/2011 - Diabetes ([facility]) - diabetes II 2010 - Diaphragmatic hernia without mention of obstruction or gangrene - Dysthymic disorder Depression (non-psychotic) - Esophageal reflux - Essential hypertension, benign - Generalized OA - Localized osteoarthrosis not specified whether primary or secondary, lower leg - Major depressive disorder, recurrent episode - Mucous polyp of cervix 07/19/05 - Other and unspecified anterior pituitary hyperfunction ([facility]) 10/13/05 elevated prolactin level-was normal in 2011 - PMH - PAST MEDICAL HISTORY OF sleep apnea - PMH - PAST MEDICAL HISTORY OF sleep apnea - SVT (supraventricular tachycardia) ([facility]) - 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 - Type 2 diabetes mellitus without complication, with long-term current use of insulin ([facility]) 12/22/2013 PAST SURGICAL HISTORY Procedure Laterality Date - BIOPSY CERVIX SINGLE/MULT/EXCISION OF LESION SPX 07/19/05 endocervical polyp - COLONOSCOPY FLX DX W/COLLJ SPEC WHEN PFRMD 01/09/2012 Colonoscopy repeat 10 years - COLPOSCOPY CERVIX UPPER/ADJACENT VAGINA Colposcopy - EGD TRANSORAL BIOPSY SINGLE/MULTIPLE 01/16/07 - ESOPHAGOGASTRODUODENOSCOPY TRANSORAL DIAGNOSTIC 01/09/2012 EGD - HERNIA REPAIR HX 11/2015 ventral - HYSTEROSCOPY DX 12/17/2014 [facility] - LAPS SURG CHOLECYSTECTOMY W/CHOLANGIOGRAPHY 05/15/08 ALLERGIES ALLERGIES Allergen Reactions - Lyrica [Pregabalin] Anaphylaxis Not sure if accurate. Can take gabapentin. Patient is unsure of reaction. - Accupril [Quinapril* Intolerance dizziness - Actos [Pioglitazone] Swelling - Amlodipine Swelling Leg edema - Atenolol Swelling - Atorvastatin Intolerance Muscle cramps and weakness - Celebrex [Celecoxib] Swelling - Effexor [Venlafaxin* swelling high blood pressure - Januvia [Sitaglipti* GI Upset, Other: See Comments Patient states she couldn't eat - Metoprolol Swelling - Mobic [Meloxicam] GI Upset - Prozac [Fluoxetine * Intolerance tremor - Remeron [Mirtazapin* Rash - Risperidone Mental Status Change - Seroquel [Quetiapin* hypertension,swelling - Vancomycin Itching, Other: See Comments, Rash red all over Other reaction(s): Other: See Comments red all over - Vioxx [Rofecoxib] GI Upset - Wellbutrin [Bupropi* Intolerance nightmares CURRENT OUTPATIENT MEDICATIONS ARTHRITIS PAIN RELIEF 650 mg CR tablet Take 1 tablet by mouth every 6 hours as needed. HYDROcodone-acetaminophen (NORCO) 5-325 mg per tablet Take 1 tablet by mouth twice daily as needed for pain for up to 3 days. potassium chloride (K-TAB) 10 mEq tablet Take 1 tablet by mouth once daily. traZODone (DESYREL) 100 mg tablet Take 1 tablet by mouth daily at bedtime. methocarbamol (ROBAXIN) 500 mg tablet Take 1 tablet by mouth twice daily. Cholecalciferol, Vitamin D3, 125 mcg (5,000 unit) cap Take 1 capsule by mouth once daily. ascorbic acid (VITAMIN C ORAL) Take 1 tablet by mouth once daily. nystatin (MYCOSTATIN) powder Apply 1 application to affected area four times daily. Insulin Maljamar, Disposable, (BD ULTRA-FINE MADI PEN NEEDLE) 32 gauge x 32 Use one needle for each dose. 2/day. ibuprofen (MOTRIN) 800 mg tablet Take 1 tablet by mouth every 8 hours as needed (FOR PAIN. TAKE WITH FOOD). ARIPiprazole (ABILIFY) 10 mg tablet Take 1 tablet by mouth once daily. D (more content not included)...[facility] [id number] History of Present illness Narrative* Jayna Vines, RT(R) - 04/20/2021 12:45 PM EST Radiology Service Progress Note PATIENT NAME: Wilton Kahn DATE OF SERVICE: April 20, 2021 TIME: 1:01 PM PATIENT IDENTITY VERIFICATION COMPLETED USING TWO (2) IDENTIFIERS: Name and Date of confirmedby patient verbally. FALL SCREENING: Has the patient had 2 falls in the last year or 1 fall with injury or currently using an Ambulatory Assistive Device (Walker, Cane, Wheelchair, Crutches, etc.)? No PATIENT GENDER DATA: Female. status: : No status: NO. PATIENT RELEVANT IMPLANT DATA REVIEWED: Not Applicable RADIOLOGY DEPARTMENT: General X-ray: Exam(s) Completed: Lower Extremity X- Ray(s): Knee, AP Only Bilateral and Wt. Bearing PERIPHERAL IV DATA: Not applicable SIGNED BY: RT Dominic(R) April 20, 2021 1:01 PM documented in this encounterPrem[facility]-2022 NoteHNO ID: [id number] Author: Keya Aparicio APRN.OIL FIELD ROUSTABOUT Service: ? Author Type: Nurse Practitioner Type: Progress Notes Filed: 04/13/2021 9:53 AM Note Text: WOUND CENTER PROGRESS NOTE PATIENT NAME: Wilton Khan DATE OF FOLLOW UP: 04/13/2021 REASON FOR FOLLOW UP: right posterior thigh wounds HISTORY OF PRESENT ILLNESS: Wilton Khan is a 61 year old y/o female w/ Hx DM, HTN, CHF, COPD, DJD, morbid obesity, who presents for wound assessment of new right posterior thigh wounds. She states the wounds have been present for about 3 weeks. She has been using a mixture of AANDD ointment and Desitin on the wounds, but they have not improved. She continues to have much difficulty with standing and ambulation d/t chronic bilat knee pain. She sits and sleeps in a recliner chair. She states she does have a gel cushion for her chair. She has assistance of [facility] once a week at present. Location: right posterior thigh Onset: June 2020 Aggravating factors: Debility, Diabetes mellitus, Immobility, Positioning and Pressure Wound etiology: Pressure Associated pain with wound: Yes Relieving factors for wound pain: Positioning and Wound care Treatments: Current: Desitin and AANDD ointment Past: alginate w/ silver, Triad, Promogran PAST MEDICAL HISTORY Diagnosis Date - Abnormal glandular Papanicolaou smear of cervix 05/30/05 ABNL GLANDULAR PAP SMEAR CERVIX - Acute gastritis without mention of hemorrhage - Anxiety state, unspecified - Arrhythmia - Chronic cholecystitis - Chronic obstructive pulmonary disease (COPD) (HCC) - Congestive heart failure (HCC) 10/03/2011 - Diabetes ([facility]) - diabetes II 2010 - Diaphragmatic hernia without mention of obstruction or gangrene - Dysthymic disorder Depression (non-psychotic) - Esophageal reflux - Essential hypertension, benign - Generalized OA - Localized osteoarthrosis not specified whether primary or secondary, lower leg - Major depressive disorder, recurrent episode - Mucous polyp of cervix 07/19/05 - Other and unspecified anterior pituitary hyperfunction ([facility]) 10/13/05 elevated prolactin level-was normal in 2011 - PMH - PAST MEDICAL HISTORY OF sleep apnea - PMH - PAST MEDICAL HISTORY OF sleep apnea - SVT (supraventricular tachycardia) ([facility]) - 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 - Type 2 diabetes mellitus without complication, with long-term current use of insulin ([facility]) 12/22/2013 PAST SURGICAL HISTORY Procedure Laterality Date - BIOPSY CERVIX SINGLE/MULT/EXCISION OF LESION SPX 07/19/05 endocervical polyp - COLONOSCOPY FLX DX W/COLLJ SPEC WHEN PFRMD 01/09/2012 Colonoscopy repeat 10 years - COLPOSCOPY CERVIX UPPER/ADJACENT VAGINA Colposcopy - EGD TRANSORAL BIOPSY SINGLE/MULTIPLE 01/16/07 - ESOPHAGOGASTRODUODENOSCOPY TRANSORAL DIAGNOSTIC 01/09/2012 EGD - HERNIA REPAIR HX 11/2015 ventral - HYSTEROSCOPY DX 12/17/2014 [facility] - LAPS SURG CHOLECYSTECTOMY W/CHOLANGIOGRAPHY 05/15/08 ALLERGIES ALLERGIES Allergen Reactions - Lyrica [Pregabalin] Anaphylaxis Not sure if accurate. Can take gabapentin. Patient is unsure of reaction. - Accupril [Quinapril* Intolerance dizziness - Actos [Pioglitazone] Swelling - Amlodipine Swelling Leg edema - Atenolol Swelling - Atorvastatin Intolerance Muscle cramps and weakness - Celebrex [Celecoxib] Swelling - Effexor [Venlafaxin* swelling high blood pressure - Januvia [Sitaglipti* GI Upset, Other: See Comments Patient states she couldn't eat - Metoprolol Swelling - Mobic [Meloxicam] GI Upset - Prozac [Fluoxetine * Intolerance tremor - Remeron [Mirtazapin* Rash - Risperidone Mental Status Change - Seroquel [Quetiapin* hypertension,swelling - Vancomycin Itching, Other: See Comments, Rash red all over Other reaction(s): Other: See Comments red all over - Vioxx [Rofecoxib] GI Upset - Wellbutrin [Bupropi* Intolerance nightmares CURRENT OUTPATIENT MEDICATIONS potassium chloride (K-TAB) 10 mEq tablet Take 1 tablet by mouth once daily. traZODone (DESYREL) 100 mg tablet Take 1 tablet by mouth daily at bedtime. methocarbamol (ROBAXIN) 500 mg tablet Take 1 tablet by mouth twice daily. ascorbic acid (VITAMIN C ORAL) Take 1 tablet by mouth once daily. nystatin (MYCOSTATIN) powder Apply 1 application to affected area four times daily. Insulin Maljamar, Disposable, (BD ULTRA-FINE MADI PEN NEEDLE) 32 gauge x Use one needle for each dose. 2/day. ibuprofen (MOTRIN) 800 mg tablet Take 1 tablet by mouth every 8 hours as needed (FOR PAIN. TAKE WITH FOOD). ARIPiprazole (ABILIFY) 10 mg tablet Take 1 tablet by mouth once daily. DULoxetine (CYMBALTA) 60 mg capsule Take 1 capsule by mouth once daily. furosemide (LASIX) 80 mg tablet Take 1 tablet by mouth once daily. metFORMIN ER (GLUCOPHAGE XR) 500 mg 24 hr tablet Take 1 tablet by mouth once daily. famotidine (PEPCID) 40 mg tablet Take 1 tablet by mouth once daily. (more content not included)...[facility] [id number] NoteHNO ID: [id number] Author: Keya Aparicio APRN.OIL FIELD ROUSTABOUT Service: ? Author Type: Nurse Practitioner Type: Progress Notes Filed: 01/28/2021 3:41 PM Note Text: WOUND CENTER PROGRESS NOTE PATIENT NAME: Wilton Khan DATE OF FOLLOW UP: 01/28/2021 REASON FOR FOLLOW UP: right posterior thigh wounds HISTORY OF PRESENT ILLNESS: Wilton Khan is a 61 year old y/o female w/ Hx DM, HTN, CHF, COPD, DJD, morbid obesity,who presents for wound assessment and treatment evaluation of right posterior thigh wounds. She has much difficulty with standing and ambulation d/t chronic bilat knee pain. She sits and sleeps in a recliner chair. Location: right posterior thigh Onset: June 2020 Aggravating factors: Debility, Diabetes mellitus, Immobility, Positioning and Pressure Wound etiology: Pressure Associated pain with wound: Yes, sometimes, getting better Relieving factors for wound pain: Positioning and Wound care Treatments: Current: zinc oxide, bordered foam Past: alginate w/ silver, Triad, Promogran PAST MEDICAL HISTORY Diagnosis Date - Abnormal glandular Papanicolaou smear of cervix 05/30/05 ABNL GLANDULAR PAP SMEAR CERVIX - Acute gastritis without mention of hemorrhage - Anxiety state, unspecified - Arrhythmia - Chronic cholecystitis - Chronic obstructive pulmonary disease (COPD) ([facility]) - Congestive heart failure ([facility]) 10/03/2011 - Diabetes ([facility]) - diabetes II 2010 - Diaphragmatic hernia without mention of obstruction or gangrene - Dysthymic disorder Depression (non-psychotic) - Esophageal reflux - Essential hypertension, benign - Generalized OA - Localized osteoarthrosis not specified whether primary or secondary, lower leg - Major depressive disorder, recurrent episode - Mucous polyp of cervix 07/19/05 - Other and unspecified anterior pituitary hyperfunction ([facility]) 10/13/05 elevated prolactin level-was normal in 2011 - PMH - PAST MEDICAL HISTORY OF sleep apnea - PMH - PAST MEDICAL HISTORY OF sleep apnea - SVT (supraventricular tachycardia) ([facility]) - 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 - Type 2 diabetes mellitus without complication, with long-term current use of insulin ([facility]) 12/22/2013 PAST SURGICAL HISTORY Procedure Laterality Date - CERVICAL BIOPSY OR EXCISION 07/19/05 endocervical polyp - COLONOSCOP W/ OR W/O BRSH SPEC 01/09/2012 Colonoscopy repeat 10 years - COLPOSCOPY (VAGINOSCOPY) Colposcopy - EGD W/O BRSH SPECIMEN W/BX 01/16/07 - EGD W/O OR W/BRUSH/WASH 01/09/2012 EGD - HERNIA REPAIR HX 11/2015 ventral - HYSTEROSCOPY DX 12/17/2014 [facility] - LAP CHOLECYSTECT/CHOLANGIOGRAPHY 05/15/08 ALLERGIES ALLERGIES Allergen Reactions - Lyrica [Pregabalin] Anaphylaxis Not sure if accurate. Can take gabapentin. Patient is unsure of reaction. - Accupril [Quinapril* Intolerance dizziness - Actos [Pioglitazone] Swelling - Amlodipine Swelling Leg edema - Atenolol Swelling - Atorvastatin Intolerance Muscle cramps and weakness - Celebrex [Celecoxib] Swelling - Effexor [Venlafaxin* swelling high blood pressure - Januvia [Sitaglipti* GI Upset, Other: See Comments Patient states she couldn't eat - Metoprolol Swelling - Mobic [Meloxicam] GI Upset - Prozac [Fluoxetine * Intolerance tremor - Remeron [Mirtazapin* Rash - Risperidone Mental Status Change - Seroquel [Quetiapin* hypertension,swelling - Vancomycin Itching, Other: See Comments, Rash red all over Other reaction(s): Other: See Comments red all over - Vioxx [Rofecoxib] GI Upset - Wellbutrin [Bupropi* Intolerance nightmares CURRENT OUTPATIENT MEDICATIONS nitrofurantoin monohydrate and macrocrystal (MACROBID) 100 mg capsule Take 1 capsule by mouth twice daily with meals for 7 days. methocarbamol (ROBAXIN) 500 mg tablet Take 1 tablet by mouth twice daily. HYDROcodone-acetaminophen (NORCO) 5-325 mg per tablet Take 1 tablet by mouth twice daily as needed for pain for up to 3 days. Cholecalciferol, Vitamin D3, 125 mcg (5,000 unit) cap Take 1 capsule by mouth once daily. ascorbic acid (VITAMIN C ORAL) Take 1 tablet by mouth once daily. nystatin (MYCOSTATIN) powder Apply 1 application to affected area four times daily. Insulin Maljamar, Disposable, (BD ULTRA-FINE MADI PEN NEEDLE) 32 gauge x Use one needle for each dose. 2/day. ibuprofen (MOTRIN) 800 mg tablet Take 1 tablet by mouth every 8 hours as needed (FOR PAIN. TAKE WITH FOOD). ARIPiprazole (ABILIFY) 10 mg tablet Take 1 tablet by mouth once daily. DULoxetine (CYMBALTA) 60 mg capsule Take 1 capsule by mouth once daily. furosemide (LASIX) 80 mg tablet Take 1 tablet by mouth once daily. metFORMIN ER (GLUCOPHAGE XR) 500 mg 24 hr tablet Take 1 tablet by mouth once daily. insulin glargine (LANTUS SOLOSTAR U-100 INSULIN) 100 unit/mL (3 mL) Inject 25 Units subcutaneously twice daily. famotidine (PEPCID) 40 mg tablet Take 1 tablet by mouth once daily. potassium chloride (K- (more content not included)...[facility] [id number] History of Present illness Narrative* April Fenton, RT(R) - 01/19/2021 8:30 AM EST RADIOLOGY SERVICE PROGRESS NOTE SERVICE DATE: 01/19/2021 SERVICE TIME: 9:33 AM PATIENT IDENTITY VERIFICATION COMPLETED USING TWO (2) STANDARD IDENTIFIERS: Name and Date of confirmed by patient verbally FALL SCREENING: Has the patient had 2 falls in the last year or 1 fall with injury or currently using an Ambulatory Assistive Device (Walker, Cane, Wheelchair, Crutches, etc.)? No PATIENT GENDER DATA: .female : No ALLERGIES: Reviewed and unchanged MEDICATIONS REVIEWED: Not applicable PATIENT RELEVANT IMPLANT DATA REVIEWED: Not Applicable CREATININE: Creatinine Date Value Ref Range Status 01/12/2021 0.52 (L) 0.58 - 0.96 mg/dL Final 12/24/2020 0.59 0.58 - 0.96 mg/dL Final 12/13/2020 0.64 0.58 - 0.96 mg/dL Final eGFR-All Other Races Date Value Ref Range Status 01/12/2021 >60 . Final Comment: eGFR (Estimated GFR) Units of measure: [...] eGFR may not accurately reflect actual GFR. Note: On 04/16/2021, the eGFR calculation will be updated to the NKF-ASN Task Force recommended 2020 CKD-EPI creatinine equation which does not include a race variable. For more information or to access a 2020 CKD-EPI calculator, visit the [employer] website at kidney.org/professionals/kdoqi/gfr_calculator. eGFR- Date Value Ref Range Status 01/12/2021 >60 Final P.O.C.T. RESULTS: N/A January 19, [address] PERFORMED: No IV SITE: Ambulatory: A peripheral IV was started in the Left forearm with a Angio cath: 22 gauge. POST EXAM PIV STATUS: Discontinued PROCEDURE TYPE: NM Parathyroid: 359 microcurries of Nal 123 capsules was administered orally at 8:50AM. 33.6 mCi of Tc99m Sestamibi was injected IV at 12:15pm. PATIENT DISCHARGED TO: Ambulatory patient, left [place] department area. A Diagnostic radioactive procedure has taken place, with no further precautions necessary other than routine body substance precautions. More information regarding radiation safety can be found usingthis link: [email or web address] SIGNATURE: RT Dayna(R) PATIENT NAME: Wilton Khan DATE: January 19, 2021 TIME: 9:33 AM PAGER/CONTACT #: documented in this encounterPrem[facility]11-24-2021 NoteHNO ID: [id number] Author: Keya Aparicio APRN.OIL FIELD ROUSTABOUT Service: ? Author Type: Nurse Practitioner Type: Progress Notes Filed: 01/12/2021 3:15 PM Note Text: WOUND CENTER PROGRESS NOTE PATIENT NAME: Wilton Khan DATE OF FOLLOW UP: 01/12/2021 REASON FOR FOLLOW UP: right posterior thigh wounds HISTORY OF PRESENT ILLNESS: Wilton Khan is a 60 year old y/o female w/ Hx DM, HTN, CHF, COPD, DJD, morbid obesity,who presents for wound assessment and treatment evaluation of right posterior thigh wounds. She has much difficulty with standing and ambulation d/t chronic bilat knee pain. She sits and sleeps in a recliner chair. Location: right posterior thigh Onset: June 2020 Aggravating factors: Debility, Diabetes mellitus, Immobility, Positioning and Pressure Wound etiology: Pressure Associated pain with wound: Yes, sometimes, getting better Relieving factors for wound pain: Positioning and Wound care Treatments: Current: zinc oxide, bordered foam Past: alginate w/ silver, Triad, Promogran PAST MEDICAL HISTORY Diagnosis Date - Abnormal [...] - Other and unspecified anterior pituitary hyperfunction ([facility]) 10/13/05 elevated prolactin level-was normal in 2011 - PMH - PAST MEDICAL HISTORY OF sleep apnea - PMH - PAST MEDICAL HISTORY OF sleep apnea - SVT (supraventricular tachycardia) ([facility]) - 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 - Type 2 diabetes mellitus without complication, with long-term current use of insulin ([facility]) 12/22/2013 PAST SURGICAL HISTORY Procedure Laterality Date - CERVICAL BIOPSY OR EXCISION 07/19/05 endocervical polyp - COLONOSCOP W/ OR W/O [facility] SPEC 01/09/2012 Colonoscopy repeat 10 years - COLPOSCOPY (VAGINOSCOPY) Colposcopy - EGD W/O [facility] SPECIMEN W/BX 01/16/07 - EGD W/O OR W/BRUSH/WASH 01/09/2012 EGD - HERNIA REPAIR HX 11/2015 ventral - HYSTEROSCOPY DX 12/17/2014 [facility] - LAP CHOLECYSTECT/CHOLANGIOGRAPHY 05/15/08 ALLERGIES ALLERGIES Allergen Reactions - Lyrica [Pregabalin] Anaphylaxis Not sure if accurate. Can take gabapentin. Patient is unsure of reaction. - Accupril [Quinapril* Intolerance dizziness - Actos [Pioglitazone] Swelling - Amlodipine Swelling Leg edema - Atenolol Swelling - Atorvastatin Intolerance Muscle cramps and weakness - Celebrex [Celecoxib] Swelling - Effexor [Venlafaxin* swelling high blood pressure - Januvia [Sitaglipti* GI Upset, Other: See Comments Patient states she couldn't eat - Metoprolol Swelling - Mobic [Meloxicam] GI Upset - Prozac [Fluoxetine * Intolerance tremor - Remeron [Mirtazapin* Rash - Risperidone Mental Status Change - Seroquel [Quetiapin* hypertension,swelling - Vancomycin Itching, Other: See Comments, Rash red all over Other reaction(s): Other: See Comments red all over - Vioxx [Rofecoxib] GI Upset - Wellbutrin [Bupropi* Intolerance nightmares CURRENT OUTPATIENT MEDICATIONS ascorbic acid (VITAMIN C ORAL) Take 1 tablet by mouth once daily. nystatin (MYCOSTATIN) powder Apply 1 application to affected area four times daily. HYDROcodone-acetaminophen (NORCO) 5-325 mg per tablet Take 1 tablet by mouth twice daily as needed for pain for up to 3 days. methocarbamol (ROBAXIN) 500 mg tablet Take 1 tablet by mouth twice daily. Insulin Maljamar, Disposable, (BD ULTRA-FINE MADI PEN NEEDLE) 32 gauge x Use one needle for each dose. 2/day. ibuprofen (MOTRIN) 800 mg tablet Take 1 tablet by mouth every 8 hours as needed (FOR PAIN. TAKE WITH FOOD). ARIPiprazole (ABILIFY) 10 mg tablet Take 1 tablet by mouth once daily. DULoxetine (CYMBALTA) 60 mg capsule Take 1 capsule by mouth once daily. furosemide (LASIX) 80 mg tablet Take 1 tablet by mouth once daily. metFORMIN ER (GLUCOPHAGE XR) 500 mg 24 hr tablet Take 1 tablet by mouth once daily. insulin glargine (LANTUS SOLOSTAR U-100 INSULIN) 100 unit/mL (3 mL) Inject 25 Units subcutaneously twice daily. famotidine (PEPCID) 40 mg tablet Take 1 tablet by mouth once daily. potassium chloride (K-TAB) 10 mEq tablet Take 1 tablet by mouth once daily. spironolactone (ALDACTONE) 50 mg tablet Take 1 tablet by mouth once daily. Cholecalciferol, Vitamin D3, 125 mcg (5,000 unit) cap Take 1 capsule by mouth once daily. (more content not included)...[facility] [id number] Note HNO ID: [id number] Author: Keya Aparicio APRN.OIL FIELD ROUSTABOUT Service: ? Author Type: Nurse Practitioner Type: Progress Notes Filed: 12/30/2020 12:47 PM Note Text: WOUND CENTER PROGRESS NOTE PATIENT NAME: Wilton Khan DATE OF FOLLOW UP: 12/30/2020 REASON FOR FOLLOW UP: right posterior thigh wounds HISTORY OF PRESENT ILLNESS: Wilton Khan is a 60 year old y/o female w/ Hx DM, HTN, CHF, COPD, DJD, morbid obesity,who presents for wound assessment and treatment evaluation of right posterior thigh wounds. She has much difficulty with standing and ambulation d/t chronic bilat knee pain. She sits and sleeps in a recliner chair. She did acquire the waffle offloading chair cushion; she states she likes it and is comfortable. Location: right posterior thigh Onset: June 2020 Aggravating factors: Debility, Diabetes mellitus, Immobility, Positioning and Pressure Wound etiology: Pressure Associated pain with wound: Yes Relieving factors for wound pain: Positioning and Wound care Treatments: Current: alginate w/ silver, bordered foam Past: Triad, Promogran PAST MEDICAL HISTORY Diagnosis Date - Abnormal glandular Papanicolaou smear of cervix 05/30/05 ABNL GLANDULAR PAP SMEAR CERVIX - Acute gastritis without mention of hemorrhage - Anxiety state, unspecified - Arrhythmia - Chronic cholecystitis - Chronic obstructive pulmonary disease (COPD) ([facility]) - Congestive heart failure ([facility]) 10/03/2011 - Diabetes ([facility]) - diabetes II 2010 - Diaphragmatic hernia without mention of obstruction or gangrene - Dysthymic disorder Depression (non-psychotic) - Esophageal reflux - Essential hypertension, benign - Generalized OA - Localized osteoarthrosis not specified whether primary or secondary, lower leg - Major depressive disorder, recurrent episode - Mucous polyp of cervix 07/19/05 - Other and unspecified anterior pituitary hyperfunction ([facility]) 10/13/05 elevated prolactin level-was normal in 2011 - PMH - PAST MEDICAL HISTORY OF sleep apnea - PMH - PAST MEDICAL HISTORY OF sleep apnea - SVT (supraventricular tachycardia) ([facility]) - 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 - Type 2 diabetes mellitus without complication, with long-term current use of insulin ([facility]) 12/22/2013 PAST SURGICAL HISTORY Procedure Laterality Date - CERVICAL BIOPSY OR EXCISION 07/19/05 endocervical polyp - COLONOSCOP W/ OR W/O [facility] SPEC 01/09/2012 Colonoscopy repeat 10 years - COLPOSCOPY (VAGINOSCOPY) Colposcopy - EGD W/O [facility] SPECIMEN W/BX 01/16/07 - EGD W/O OR W/BRUSH/WASH 01/09/2012 EGD - HERNIA REPAIR HX 11/2015 ventral - HYSTEROSCOPY DX 12/17/2014 [facility] - LAP CHOLECYSTECT/CHOLANGIOGRAPHY 05/15/08 ALLERGIES ALLERGIES Allergen Reactions - Lyrica [Pregabalin] Anaphylaxis Not sure if accurate. Can take gabapentin. Patient is unsure of reaction. - Accupril [Quinapril* Intolerance dizziness - Actos [Pioglitazone] Swelling - Amlodipine Swelling Leg edema - Atenolol Swelling - Atorvastatin Intolerance Muscle cramps and weakness - Celebrex [Celecoxib] Swelling - Effexor [Venlafaxin* swelling high blood pressure - Januvia [Sitaglipti* GI Upset, Other: See Comments Patient states she couldn't eat - Metoprolol Swelling - Mobic [Meloxicam] GI Upset - Prozac [Fluoxetine * Intolerance tremor - Remeron [Mirtazapin* Rash - Risperidone Mental Status Change - Seroquel [Quetiapin* hypertension,swelling - Vancomycin Itching, Other: See Comments, Rash red all over Other reaction(s): Other: See Comments red all over - Vioxx [Rofecoxib] GI Upset - Wellbutrin [Bupropi* Intolerance nightmares CURRENT OUTPATIENT MEDICATIONS nystatin (MYCOSTATIN) powder Apply 1 application to affected area four times daily. HYDROcodone-acetaminophen (NORCO) 5-325 mg per tablet Take 1 tablet by mouth twice daily as needed for pain for up to 3 days. methocarbamol (ROBAXIN) 500 mg tablet Take 1 tablet by mouth twice daily. Insulin Maljamar, Disposable, (BD ULTRA-FINE MADI PEN NEEDLE) 32 gauge x Use one needle for each dose. 2/day. ibuprofen (MOTRIN) 800 mg tablet Take 1 tablet by mouth every 8 hours as needed (FOR PAIN. TAKE WITH FOOD). ARIPiprazole (ABILIFY) 10 mg tablet Take 1 tablet by mouth once daily. DULoxetine (CYMBALTA) 60 mg capsule Take 1 capsule by mouth once daily. furosemide (LASIX) 80 mg tablet Take 1 tablet by mouth once daily. metFORMIN ER (GLUCOPHAGE XR) 500 mg 24 hr tablet Take 1 tablet by mouth once daily. insulin glargine (LANTUS SOLOSTAR U-100 INSULIN) 100 unit/mL (3 mL) Inject 25 Units subcutaneously twice daily. famotidine (PEPCID) 40 mg tablet Take 1 tablet by mouth once daily. potassium chloride (K-TAB) 10 mEq tablet Take 1 tablet by mouth once daily. spironolactone (ALDACTONE) 50 mg tablet Take 1 tablet by mouth once daily. Cholecalciferol, Vitamin D3, 125 mcg (5,000 unit) cap Take 1 capsule by mouth once daily. traZODo (more content not included)...[facility] [id number] NoteHNO ID: [id number] Author: Keya Aparicio APRN.O[employer] FIELD ROUSTABOUT Service: ? Author Type: Nurse Practitioner Type: Progress Notes Filed: 12/09/2020 9:47 AM Note Text: WOUND CENTER PROGRESS NOTE PATIENT NAME: Wilton Khan DATE OF FOLLOW UP: 12/09/2020 REASON FOR FOLLOW UP: right posterior thigh wounds HISTORY OF PRESENT ILLNESS: Wilton Khan is a 60 year old y/o female w/ Hx DM, HTN, CHF, COPD, DJD, morbid obesity,who presents for wound assessment and treatment evaluation of right posterior thigh wounds. She reports she had to stop using the Triad cream for the wounds d/t burning sensation when on the wounds. She ordered the waffle chair cushion and is supposed to be delivered today. She has much difficulty with standing and ambulation d/t chronic bilat knee pain. She sits and sleeps in a recliner chair. Location: right posterior thigh Onset: June 2020 Aggravating factors: Debility, Diabetes mellitus, Immobility, Positioning and Pressure Wound etiology: Pressure Associated pain with wound: Yes Relieving factors for wound pain: Positioning and Wound care Treatments: Current: Triad, bordered foam Past: Promogran PAST MEDICAL HISTORY Diagnosis Date - Abnormal [...] - Other and unspecified anterior pituitary hyperfunction (HCC) 10/13/05 elevated prolactin level-was normal in 2011 - PMH - PAST MEDICAL HISTORY OF sleep apnea - PMH - PAST MEDICAL HISTORY OF sleep apnea - SVT (supraventricular tachycardia) ([facility]) - 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 - Type 2 diabetes mellitus without complication, with long-term current use of insulin ([facility]) 12/22/2013 PAST SURGICAL HISTORY Procedure Laterality Date - CERVICAL BIOPSY OR EXCISION 07/19/05 endocervical polyp - COLONOSCOP W/ OR W/O [facility] SPEC 01/09/2012 Colonoscopy repeat 10 years - COLPOSCOPY (VAGINOSCOPY) Colposcopy - EGD W/O BRSH SPECIMEN W/BX 01/16/07 - EGD W/O OR W/BRUSH/WASH 01/09/2012 EGD - HERNIA REPAIR HX 11/2015 ventral - HYSTEROSCOPY DX 12/17/2014 DANTX - LAP CHOLECYSTECT/CHOLANGIOGRAPHY 05/15/08 ALLERGIES ALLERGIES Allergen Reactions - Lyrica [Pregabalin] Anaphylaxis Not sure if accurate. Can take gabapentin. Patient is unsure of reaction. - Accupril [Quinapril* Intolerance dizziness - Actos [Pioglitazone] Swelling - Amlodipine Swelling Leg edema - Atenolol Swelling - Atorvastatin Intolerance Muscle cramps and weakness - Celebrex [Celecoxib] Swelling - Effexor [Venlafaxin* swelling high blood pressure - Januvia [Sitaglipti* GI Upset, Other: See Comments Patient states she couldn't eat - Metoprolol Swelling - Mobic [Meloxicam] GI Upset - Prozac [Fluoxetine * Intolerance tremor - Remeron [Mirtazapin* Rash - Risperidone Mental Status Change - Seroquel [Quetiapin* hypertension,swelling - Vancomycin Itching, Other: See Comments, Rash red all over Other reaction(s): Other: See Comments red all over - Vioxx [Rofecoxib] GI Upset - Wellbutrin [Bupropi* Intolerance nightmares CURRENT OUTPATIENT MEDICATIONS ARTHRITIS PAIN RELIEF 650 mg CR tablet Take 1 tablet by mouth every 6 hours as needed. nystatin (MYCOSTATIN) powder Apply 1 application to affected area four times daily. HYDROcodone-acetaminophen (NORCO) 5-325 mg per tablet Take 1 tablet by mouth twice daily as needed for pain for up to 3 days. methocarbamol (ROBAXIN) 500 mg tablet Take 1 tablet by mouth twice daily. Insulin Maljamar, Disposable, (BD ULTRA-FINE MADI PEN NEEDLE) 32 gauge x Use one needle for each dose. 2/day. ibuprofen (MOTRIN) 800 mg tablet Take 1 tablet by mouth every 8 hours as needed (FOR PAIN. TAKE WITH FOOD). ARIPiprazole (ABILIFY) 10 mg tablet Take 1 tablet by mouth once daily. DULoxetine (CYMBALTA) 60 mg capsule Take 1 capsule by mouth once daily. furosemide (LASIX) 80 mg tablet Take 1 tablet by mouth once daily. metFORMIN ER (GLUCOPHAGE XR) 500 mg 24 hr tablet Take 1 tablet by mouth once daily. insulin glargine (LANTUS SOLOSTAR U-100 INSULIN) 100 unit/mL (3 mL) Inject 25 Units subcutaneously twice daily. famotidine (PEPCID) 40 mg tablet Take 1 tablet by mouth once daily. potassium chloride (K-TAB) 10 mEq tablet Take 1 tablet by mouth once daily. pravastatin (PRAVACH (more content not included)...[id number] NoteHNO ID: [id number] Author: Keya Aparicio APRN.O[employer] FIELD ROUSTABOUT Service: ? Author Type: Nurse Practitioner Type: Progress Notes Filed: 11/25/2020 10:17 AM Note Text: WOUND CENTER INITIAL CONSULT PATIENT NAME: Wilton Khan DATE OF CONSULTATION: 11/25/2020 REASON FOR CONSULTATION: right posterior thigh wounds HISTORY OF PRESENT ILLNESS: Wilton Khan is a 60 year old y/o female w/ hx DM, HTN, CHF, COPD, DJD, hyperparathyroidism, morbid obesity, who presents for Wound Consult. She reports recurrent wounds to the right posterior thigh. She was previously going to [facility] for treatment for the thigh wounds; they were healed for about one month but then reopened again June 2020. She has been using Promogran and border gauze type dressing on the wounds. She has difficulty with ambulation d/t chronic bilat knee pain. She does sit in a chair a lot. She has a chair cushion for offloading but states it is too hard and uncomfortable so she doesn't use it. She has assistance of [facility] at home. Location: right posterior thigh x 3 Onset: June 2020 Aggravating factors: Debility, Diabetes mellitus, Immobility, Positioning and Pressure Wound etiology: Pressure Associated pain with wound: Yes, tender Relieving factors for wound pain: Positioning and Wound care Treatments: Current: Promogran, border gauze PAST MEDICAL HISTORY Diagnosis Date - Abnormal glandular Papanicolaou smear of cervix 05/30/05 ABNL GLANDULAR PAP SMEAR CERVIX - Acute gastritis without mention of hemorrhage - Anxiety state, unspecified - Arrhythmia - Chronic cholecystitis - Chronic obstructive pulmonary disease (COPD) ([facility]) - Congestive heart failure (HCC) 10/03/2011 - Diabetes ([facility]) - diabetes II 2010 - Diaphragmatic hernia without mention of obstruction or gangrene - Dysthymic disorder Depression (non-psychotic) - Esophageal reflux - Essential hypertension, benign - Generalized OA - Localized osteoarthrosis not specified whether primary or secondary, lower leg - Major depressive disorder, recurrent episode - Mucous polyp of cervix 07/19/05 - Other and unspecified anterior pituitary hyperfunction ([facility]) 10/13/05 elevated prolactin level-was normal in 2011 - PMH - PAST MEDICAL HISTORY OF sleep apnea - PMH - PAST MEDICAL HISTORY OF sleep apnea - SVT (supraventricular tachycardia) ([facility]) - 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 - Type 2 diabetes mellitus without complication, with long-term current use of insulin ([facility]) 12/22/2013 PAST SURGICAL HISTORY Procedure Laterality Date - CERVICAL BIOPSY OR EXCISION 07/19/05 endocervical polyp - COLONOSCOP W/ OR W/O BRSH SPEC 01/09/2012 Colonoscopy repeat 10 years - COLPOSCOPY (VAGINOSCOPY) Colposcopy - EGD W/O BRS SPECIMEN W/BX 01/16/07 - EGD W/O OR W/BRUSH/WASH 01/09/2012 EGD - HERNIA REPAIR HX 11/2015 ventral - HYSTEROSCOPY DX 12/17/2014 [facility] - LAP CHOLECYSTECT/CHOLANGIOGRAPHY 05/15/08 ALLERGIES ALLERGIES Allergen Reactions - Lyrica [Pregabalin] Anaphylaxis Not sure if accurate. Can take gabapentin. Patient is unsure of reaction. - Accupril [Quinapril* Intolerance dizziness - Actos [Pioglitazone] Swelling - Amlodipine Swelling Leg edema - Atenolol Swelling - Atorvastatin Intolerance Muscle cramps and weakness - Effexor [Venlafaxin* swelling high blood pressure - Januvia [Sitaglipti* GI Upset, Other: See Comments Patient states she couldn't eat - Metoprolol Swelling - Mobic [Meloxicam] GI Upset - Prozac [Fluoxetine * Intolerance tremor - Risperidone Mental Status Change - Seroquel [Quetiapin* hypertension,swelling - Vancomycin Itching, Other: See Comments, Rash red all over Other reaction(s): Other: See Comments red all over - Vioxx [Rofecoxib] GI Upset - Wellbutrin [Bupropi* Intolerance nightmares CURRENT OUTPATIENT MEDICATIONS nystatin (MYCOSTATIN) powder Apply 1 application to affected area four times daily. HYDROcodone-acetaminophen (NORCO) 5-325 mg per tablet Take 1 tablet by mouth twice daily as needed for pain for up to 3 days. methocarbamol (ROBAXIN) 500 mg tablet Take 1 tablet by mouth twice daily. Insulin Maljamar, Disposable, (BD ULTRA-FINE MADI PEN NEEDLE) 32 gauge x Use one needle for each dose. 2/day. ibuprofen (MOTRIN) 800 mg tablet Take 1 tablet by mouth every 8 hours as needed (FOR PAIN. TAKE WITH FOOD). ARIPiprazole (ABILIFY) 10 mg tablet Take 1 tablet by mouth once daily. DULoxetine (CYMBALTA) 60 mg capsule Take 1 capsule by mouth once daily. furosemide (LASIX) 80 mg tablet Take 1 tablet by mouth once daily. metFORMIN ER (GLUCOPHAGE XR) 500 mg 24 hr tablet Take 1 tablet by mouth once daily. insulin glargine (LANTUS SOLOSTAR U-100 INSULIN) 100 unit/mL (3 mL) Inject 25 Units subcutaneously twice daily. famotidine (PEPCID) 40 mg tablet Take 1 tablet by mouth once daily. potassium chloride (K-TAB) 10 mEq tablet Take 1 table (more content not included)...[facility] [id number] History of Past illness Narrative* Problem Noted Date Resolved Date Obesity, Class III, BMI >= 40 01/13/2019 Last Assessment & Plan: Assessment: Body mass index is 76.95 kg/m . Obesity, Class III, BMI >= 40 08/10/2017 Diabetes mellitus 04/10/2012 11/24/2014 Type II or unspecified type diabetes mellitus without mention of complication, uncontrolled 01/17/2011 04/10/2012 Overview: Previously impaired fasting, converted to DM perhaps 2010 Medication side effects 10/21/2009 08/11/19 Hyperprolactinemia 05/21/2009 01/30/2012 Routine general medical exam ination at a health care facility 08/18/2008 11/29/2011 Overview: 08/18/08 -- establish, from Dr. Mathews (retired) Routine gynecological examination 08/18/2008 11/29/2011 Overview: [facility], [facility] [place] Alfredo Pain in joint, site unspecified 08/29/2007 07/24/2016 Unspecified gastritis and ga stroduodenitis without mention of hemorrhage 02/07/2007 07/24/2016 Localized osteoarthrosis not specified whether primary or secondary, lower leg 02/07/2007 07/24/2016 Overview: Both knees. Indocin helps. Acute gastritis without mention of hemorrhage 02/07/2007 Diaphragmatic hernia 01/16/2007 07/27/2022 Last Assessment & Plan: Assessment: h/o Hyperprolactinemia 10/13/2005 05/02/2021 Major depressive disorder, recurrent episode, un specified 08/12/2005 11/24/2014 Overview: Dr. Bustamante ([facility]) Osteoarthrosis, unspecified whether generalized or localized, unspecified site 08/12/2005 02/07/2007 documented as of this encounter (statuses as of 07/28/2022) [facility]11-25-2019 History of Past illness Narrative* Problem Noted Date Resolved Date Obesity, Class III, BMI >= 40 01/13/2019 Last Assessment & Plan: Assessment: Body mass index is 76.95 kg/m . Obesity, Class III, BMI >= 40 08/10/2017 Diabetes mellitus 04/10/2012 11/24/2014 Type II or unspecified type diabetes mellitus without mention of complication, uncontrolled 01/17/2011 04/10/2012 Overview: Previously impaired fasting, converted to DM perhaps 2010 Medication side effects 10/21/2009 08/11/19 18 Hyperprolactinemia 05/21/2009 01/30/2012 Routine general medical exam ination at a health care facility 08/18/2008 11/29/2011 Overview: 08/18/08 -- establish, from Dr. Mathews (retired) Routine gynecological examination 08/18/2008 11/29/2011 Overview: [facility], [facility] [place] Pain in joint, site unspecified 08/29/2007 07/24/2016 Unspecified gastritis and ga stroduodenitis without mention of hemorrhage 02/07/2007 07/24/2016 Localized osteoarthrosis not specified whether primary or secondary, lower leg 02/07/2007 07/24/2016 Overview: Both knees. Indocin helps. Acute gastritis without mention of hemorrhage 02/07/2007 Diaphragmatic hernia 01/16/2007 07/27/2022 Last Assessment & Plan: Assessment: h/o Hyperprolactinemia 10/13/2005 05/02/2021 Major depressive disorder, recurrent episode, un specified 08/12/2005 11/24/2014 Overview: Dr. Bustamante ([facility]) Osteoarthrosis, unspecified whether generalized or localized, unspecified site 08/12/2005 02/07/2007 documented as of this encounter (statuses as of 08/07/2022) [facility] History of Past illness Narrative* Problem Noted Date Resolved Date Obesity, Class III, BMI >= 40 01/13/2019 Last Assessment & Plan: Assessment: Body mass index is 76.95 kg/m . Obesity, Class III, BMI >= 40 08/10/2017 Diabetes mellitus 04/10/2012 11/24/2014 Type II or unspecified type diabetes mellitus without mention of complication, uncontrolled 01/17/2011 04/10/2012 Overview: Previously impaired fasting, converted to DM perhaps 2010 Medication side effects 10/21/2009 08/11/19 18 Hyperprolactinemia 05/21/2009 01/30/2012 Routine general medical exam ination at a health care facility 08/18/2008 11/29/2011 Overview: 08/18/08 -- establish, from Dr. Mathews (retired) Routine gynecological examination 08/18/2008 11/29/2011 Overview: [facility], [facility] [place] Pain in joint, site unspecified 08/29/2007 07/24/2016 Unspecified gastritis and ga stroduodenitis without mention of hemorrhage 02/07/2007 07/24/2016 Localized osteoarthrosis not specified whether primary or secondary, lower leg 02/07/2007 07/24/2016 Overview: Both knees. Indocin helps. Acute gastritis without mention of hemorrhage 02/07/2007 Diaphragmatic hernia 01/16/2007 07/27/2022 Last Assessment & Plan: Assessment: h/o Hyperprolactinemia 10/13/2005 05/02/2021 Major depressive disorder, recurrent episode, un specified 08/12/2005 11/24/2014 Overview: Dr. Bustamante ([facility]) Osteoarthrosis, unspecified whether generalized or localized, unspecified site 08/12/2005 02/07/2007 documented as of this encounter (statuses as of 08/23/2022) [facility] History of Past illness Narrative* Problem Noted Date Resolved Date Obesity, Class III, BMI >= 40 01/13/2019 Last Assessment & Plan: Assessment: Body mass index is 76.95 kg/m . Obesity, Class III, BMI >= 40 08/10/2017 Diabetes mellitus 04/10/2012 11/24/2014 Type II or unspecified type diabetes mellitus without mention of complication, uncontrolled 01/17/2011 04/10/2012 Overview: Previously impaired fasting, converted to DM perhaps 2010 Medication side effects 10/21/2009 08/11/19 18 Hyperprolactinemia 05/21/2009 01/30/2012 Routine general medical exam ination at a health care facility 08/18/2008 11/29/2011 Overview: 08/18/08 -- establish, from Dr. Mathews (retired) Routine gynecological examination 08/18/2008 11/29/2011 Overview: [facility], [facility] [place] [facility] Pain in joint, site unspecified 08/29/2007 07/24/2016 Unspecified gastritis and ga stroduodenitis without mention of hemorrhage 02/07/2007 07/24/2016 Localized osteoarthrosis not specified whether primary or secondary, lower leg 02/07/2007 07/24/2016 Overview: Both knees. Indocin helps. Acute gastritis without mention of hemorrhage 02/07/2007 Diaphragmatic hernia 01/16/2007 07/27/2022 Last Assessment & Plan: Assessment: h/o Hyperprolactinemia 10/13/2005 05/02/2021 Major depressive disorder, recurrent episode, un specified 08/12/2005 11/24/2014 Overview: Dr. Bustamante ([facility]) Osteoarthrosis, unspecified whether generalized or localized, unspecified site 08/12/2005 02/07/2007 documented as of this encounter (statuses as of 08/24/2022) [facility] History of Past illness Narrative* Problem Noted Date Diagnosed Date Resolved Date Obesity, Class III, BMI >= 40 01/13/2019 07/27/2022 Last Assessment & Plan: Assessment: Body mass index is 76.95 kg/m . Obesity, Class III, BMI >= 40 08/10/2017 10/20/2017 Diabetes mellitus 04/10/2012 11/24/2014 Type II or unspecified type diabetes mellitus without mention of complication, uncontrolled 01/17/2011 04/10/2012 Overview: Previously impaired fasting, converted to DM perhaps 2010 Medication side effects 10/21/200907/21 Hyperprolactinemia 05/21/2009 2 Routine general medical exam ination at a health care facility 08/18/2008 11/29/2011 Overview: 08/18/08 -- establish, from Dr. Mathews (retired) Routine gynecological examination 08/18/2008 11/29/2011 Overview: [facility], [facility] [place] Pain in joint, site unspecified 08/29/2007 07/24/2016 Unspecified gastritis and ga stroduodenitis without mention of hemorrhage 02/07/2007 07/24/2016 Localized osteoarthrosis not specified whether primary or secondary, lower leg 02/07/2007 07/24/2016 Overview: Both knees. Indocin helps. Acute gastritis without mention of hemorrhage 01/17/20 07 02/07/2007 Diaphragmatic hernia 01/16/2007 023 Last Assessment & Plan: Assessment: h/o Hyperprolactinemia 10/13/2005 2 Major depressive disorder, r ecurrent episode, unspecified 08/12/2005 11/24/2014 Overview: Dr. Bustamante ([facility]) Osteoarthrosis, unspecified whether generalized or localized, unspecified site 08/12/2005 02/07/2007 documented as of this encounter (statuses as of 08/28/2022) [facility] History of Past illness Narrative* Problem Noted Date Diagnosed Date Resolved Date Obesity, Class III, BMI >= 40 01/13/2019 07/27/2022 Last Assessment & Plan: Assessment: Body mass index is 76.95 kg/m . Obesity, Class III, BMI >= 40 08/10/2017 10/20/2017 Diabetes mellitus 04/10/2012 11/24/2014 Type II or unspecified type diabetes mellitus without mention of complication, uncontrolled 01/17/2011 04/10/2012 Overview: Previously impaired fasting, converted to DM perhaps 2010 Medication side effects 10/21/200907/21 Hyperprolactinemia 05/21/2009 2 Routine general medical exam ination at a health care facility 08/18/2008 11/29/2011 Overview: 08/18/08 -- establish, from Dr. Mathews (retired) Routine gynecological examination 08/18/2008 11/29/2011 Overview: [facility], [facility] [place] Pain in joint, site unspecified 08/29/2007 07/24/2016 Unspecified gastritis and ga stroduodenitis without mention of hemorrhage 02/07/2007 07/24/2016 Localized osteoarthrosis not specified whether primary or secondary, lower leg 02/07/2007 07/24/2016 Overview: Both knees. Indocin helps. Acute gastritis without mention of hemorrhage 01/17/20 07 02/07/2007 Diaphragmatic hernia 01/16/2007 023 Last Assessment & Plan: Assessment: h/o Hyperprolactinemia 10/13/2005 2 Major depressive disorder, r ecurrent episode, unspecified 08/12/2005 11/24/2014 Overview: Dr. Bustamante ([facility]) Osteoarthrosis, unspecified whether generalized or localized, unspecified site 08/12/2005 02/07/2007 documented as of this encounter (statuses as of 08/29/2022) [facility] History of Past illness Narrative* Problem Noted Date Diagnosed Date Resolved Date Obesity, Class III, BMI >= 40 01/13/2019 07/27/2022 Last Assessment & Plan: Assessment: Body mass index is 76.95 kg/m . Obesity, Class III, BMI >= 40 08/10/2017 10/20/2017 Diabetes mellitus 04/10/2012 11/24/2014 Type II or unspecified type diabetes mellitus without mention of complication, uncontrolled 01/17/2011 04/10/2012 Overview: Previously impaired fasting, converted to DM perhaps 2010 Medication side effects 10/21/200907/21 Hyperprolactinemia 05/21/2009 2 Routine general medical exam ination at a health care facility 08/18/2008 11/29/2011 Overview: 08/18/08 -- establish, from Dr. Mathews (retired) Routine gynecological examination 08/18/2008 11/29/2011 Overview: [facility], [facility] [place] Pain in joint, site unspecified 08/29/2007 07/24/2016 Unspecified gastritis and ga stroduodenitis without mention of hemorrhage 02/07/2007 07/24/2016 Localized osteoarthrosis not specified whether primary or secondary, lower leg 02/07/2007 07/24/2016 Overview: Both knees. Indocin helps. Acute gastritis without mention of hemorrhage 01/17/20 07 02/07/2007 Diaphragmatic hernia 01/16/2007 023 Last Assessment & Plan: Assessment: h/o Hyperprolactinemia 10/13/2005 2 Major depressive disorder, r ecurrent episode, unspecified 08/12/2005 11/24/2014 Overview: Dr. Bustamante ([facility]) Osteoarthrosis, unspecified whether generalized or localized, unspecified site 08/12/2005 02/07/2007 documented as of this encounter (statuses as of 08/29/2022) [facility] History of Past illness Narrative* Problem Noted Date Diagnosed Date Resolved Date Obesity, Class III, BMI >= 40 01/13/2019 07/27/2022 Last Assessment & Plan: Assessment: Body mass index is 76.95 kg/m . Obesity, Class III, BMI >= 40 08/10/2017 10/20/2017 Diabetes mellitus 04/10/2012 11/24/2014 Type II or unspecified type diabetes mellitus without mention of complication, uncontrolled 01/17/2011 04/10/2012 Overview: Previously impaired fasting, converted to DM perhaps 2010 Medication side effects 10/21/200907/21 Hyperprolactinemia 05/21/2009 2 Routine general medical exam ination at a health care facility 08/18/2008 11/29/2011 Overview: 08/18/08 -- establish, from Dr. Mathews (retired) Routine gynecological examination 08/18/2008 11/29/2011 Overview: [facility], [facility] [place] Pain in joint, site unspecified 08/29/2007 07/24/2016 Unspecified gastritis and ga stroduodenitis without mention of hemorrhage 02/07/2007 07/24/2016 Localized osteoarthrosis not specified whether primary or secondary, lower leg 02/07/2007 07/24/2016 Overview: Both knees. Indocin helps. Acute gastritis without mention of hemorrhage 01/17/20 07 02/07/2007 Diaphragmatic hernia 01/16/2007 023 Last Assessment & Plan: Assessment: h/o Hyperprolactinemia 10/13/2005 2 Major depressive disorder, r ecurrent episode, unspecified 08/12/2005 11/24/2014 Overview: Dr. Bustamante ([facility]) Osteoarthrosis, unspecified whether generalized or localized, unspecified site 08/12/2005 02/07/2007 documented as of this encounter (statuses as of 09/05/2022) [facility] History of Past illness Narrative* Problem Noted Date Diagnosed Date Resolved Date Obesity, Class III, BMI >= 40 01/13/2019 07/27/2022 Last Assessment & Plan: Assessment: Body mass index is 76.95 kg/m . Obesity, Class III, BMI >= 40 08/10/2017 10/20/2017 Diabetes mellitus 04/10/2012 11/24/2014 Type II or unspecified type diabetes mellitus without mention of complication, uncontrolled 01/17/2011 04/10/2012 Overview: Previously impaired fasting, converted to DM perhaps 2010 Medication side effects 10/21/200907/21 Hyperprolactinemia 05/21/2009 2 Routine general medical exam ination at a health care facility 08/18/2008 11/29/2011 Overview: 08/18/08 -- establish, from Dr. Mathews (retired) Routine gynecological examination 08/18/2008 11/29/2011 Overview: [facility], [facility] [place] Pain in joint, site unspecified 08/29/2007 07/24/2016 Unspecified gastritis and ga stroduodenitis without mention of hemorrhage 02/07/2007 07/24/2016 Localized osteoarthrosis not specified whether primary or secondary, lower leg 02/07/2007 07/24/2016 Overview: Both knees. Indocin helps. Acute gastritis without mention of hemorrhage 01/17/20 07 02/07/2007 Diaphragmatic hernia 01/16/2007 023 Last Assessment & Plan: Assessment: h/o Hyperprolactinemia 10/13/2005 2 Major depressive disorder, r ecurrent episode, unspecified 08/12/2005 11/24/2014 Overview: Dr. Bustamante ([facility]) Osteoarthrosis, unspecified whether generalized or localized, unspecified site 08/12/2005 02/07/2007 documented as of this encounter (statuses as of 09/06/2022) [facility] History of Past illness Narrative* Problem Noted Date Diagnosed Date Resolved Date Obesity, Class III, BMI >= 40 01/13/2019 07/27/2022 Last Assessment & Plan: Assessment: Body mass index is 76.95 kg/m . Obesity, Class III, BMI >= 40 08/10/2017 10/20/2017 Diabetes mellitus 04/10/2012 11/24/2014 Type II or unspecified type diabetes mellitus without mention of complication, uncontrolled 01/17/2011 04/10/2012 Overview: Previously impaired fasting, converted to DM perhaps 2010 Medication side effects 10/21/200907/21 Hyperprolactinemia 05/21/2009 2 Routine general medical exam ination at a health care facility 08/18/2008 11/29/2011 Overview: 08/18/08 -- establish, from Dr. Mathews (retired) Routine gynecological examination 08/18/2008 11/29/2011 Overview: [facility], [facility] [place] [facility] Pain in joint, site unspecified 08/29/2007 07/24/2016 Unspecified gastritis and ga stroduodenitis without mention of hemorrhage 02/07/2007 07/24/2016 Localized osteoarthrosis not specified whether primary or secondary, lower leg 02/07/2007 07/24/2016 Overview: Both knees. Indocin helps. Acute gastritis without mention of hemorrhage 01/17/20 07 02/07/2007 Diaphragmatic hernia 01/16/2007 023 Last Assessment & Plan: Assessment: h/o Hyperprolactinemia 10/13/2005 2 Major depressive disorder, r ecurrent episode, unspecified 08/12/2005 11/24/2014 Overview: Dr. Bustamante ([facility]) Osteoarthrosis, unspecified whether generalized or localized, unspecified site 08/12/2005 02/07/2007 documented as of this encounter (statuses as of 09/08/2022) [facility]11-25-2019 History of Past illness Narrative* Problem Noted Date Diagnosed Date Resolved Date Obesity, Class III, BMI >= 40 01/13/2019 07/27/2022 Last Assessment & Plan: Assessment: Body mass index is 76.95 kg/m . Obesity, Class III, BMI >= 40 08/10/2017 10/20/2017 Diabetes mellitus 04/10/2012 11/24/2014 Type II or unspecified type diabetes mellitus without mention of complication, uncontrolled 01/17/2011 04/10/2012 Overview: Previously impaired fasting, converted to DM perhaps 2010 Medication side effects 10/21/200907/21 Hyperprolactinemia 05/21/2009 2 Routine general medical exam ination at a health care facility 08/18/2008 11/29/2011 Overview: 08/18/08 -- establish, from Dr. Mathews (retired) Routine gynecological examination 08/18/2008 11/29/2011 Overview: [facility], [facility] [place] Pain in joint, site unspecified 08/29/2007 07/24/2016 Unspecified gastritis and ga stroduodenitis without mention of hemorrhage 02/07/2007 07/24/2016 Localized osteoarthrosis not specified whether primary or secondary, lower leg 02/07/2007 07/24/2016 Overview: Both knees. Indocin helps. Acute gastritis without mention of hemorrhage 01/17/20 07 02/07/2007 Diaphragmatic hernia 01/16/2007 023 Last Assessment & Plan: Assessment: h/o Hyperprolactinemia 10/13/2005 2 Major depressive disorder, r ecurrent episode, unspecified 08/12/2005 11/24/2014 Overview: Dr. Bustamante ([facility]) Osteoarthrosis, unspecified whether generalized or localized, unspecified site 08/12/2005 02/07/2007 documented as of this encounter (statuses as of 09/19/2022) [facility]11-25-2019 History of Past illness Narrative* Problem Noted Date Diagnosed Date Resolved Date Obesity, Class III, BMI >= 40 01/13/2019 07/27/2022 Last Assessment & Plan: Assessment: Body mass index is 76.95 kg/m . Obesity, Class III, BMI >= 40 08/10/2017 10/20/2017 Diabetes mellitus 04/10/2012 11/24/2014 Type II or unspecified type diabetes mellitus without mention of complication, uncontrolled 01/17/2011 04/10/2012 Overview: Previously impaired fasting, converted to DM perhaps 2010 Medication side effects 10/21/200907/21 Hyperprolactinemia 05/21/2009 2 Routine general medical exam ination at a health care facility 08/18/2008 11/29/2011 Overview: 08/18/08 -- establish, from Dr. Mathews (retired) Routine gynecological examination 08/18/2008 11/29/2011 Overview: [facility], [facility] [place] Pain in joint, site unspecified 08/29/2007 07/24/2016 Unspecified gastritis and ga stroduodenitis without mention of hemorrhage 02/07/2007 07/24/2016 Localized osteoarthrosis not specified whether primary or secondary, lower leg 02/07/2007 07/24/2016 Overview: Both knees. Indocin helps. Acute gastritis without mention of hemorrhage 01/17/20 07 02/07/2007 Diaphragmatic hernia 01/16/2007 023 Last Assessment & Plan: Assessment: h/o Hyperprolactinemia 10/13/2005 2 Major depressive disorder, r ecurrent episode, unspecified 08/12/2005 11/24/2014 Overview: Dr. Bustamante ([facility]) Osteoarthrosis, unspecified whether generalized or localized, unspecified site 08/12/2005 02/07/2007 documented as of this encounter (statuses as of 09/21/2022) [facility]11-25-2019 History of Past illness Narrative* Problem Noted Date Diagnosed Date Resolved Date Obesity, Class III, BMI >= 40 01/13/2019 07/27/2022 Last Assessment & Plan: Assessment: Body mass index is 76.95 kg/m . Obesity, Class III, BMI >= 40 08/10/2017 10/20/2017 Diabetes mellitus 04/10/2012 11/24/2014 Type II or unspecified type diabetes mellitus without mention of complication, uncontrolled 01/17/2011 04/10/2012 Overview: Previously impaired fasting, converted to DM perhaps 2010 Medication side effects 10/21/200907/21 Hyperprolactinemia 05/21/2009 2 Routine general medical exam ination at a health care facility 08/18/2008 11/29/2011 Overview: 08/18/08 -- establish, from Dr. Mathews (retired) Routine gynecological examination 08/18/2008 11/29/2011 Overview: [facility], [facility] [place] Pain in joint, site unspecified 08/29/2007 07/24/2016 Unspecified gastritis and ga stroduodenitis without mention of hemorrhage 02/07/2007 07/24/2016 Localized osteoarthrosis not specified whether primary or secondary, lower leg 02/07/2007 07/24/2016 Overview: Both knees. Indocin helps. Acute gastritis without mention of hemorrhage 01/17/20 07 02/07/2007 Diaphragmatic hernia 01/16/2007 023 Last Assessment & Plan: Assessment: h/o Hyperprolactinemia 10/13/2005 2 Major depressive disorder, r ecurrent episode, unspecified 08/12/2005 11/24/2014 Overview: Dr. Bustamante ([facility]) Osteoarthrosis, unspecified whether generalized or localized, unspecified site 08/12/2005 02/07/2007 documented as of this encounter (statuses as of 09/21/2022) [facility]11-25-2019 History of Past illness Narrative* Problem Noted Date Diagnosed Date Resolved Date Obesity, Class III, BMI >= 40 01/13/2019 07/27/2022 Last Assessment & Plan: Assessment: Body mass index is 76.95 kg/m . Obesity, Class III, BMI >= 40 08/10/2017 10/20/2017 Diabetes mellitus 04/10/2012 11/24/2014 Type II or unspecified type diabetes mellitus without mention of complication, uncontrolled 01/17/2011 04/10/2012 Overview: Previously impaired fasting, converted to DM perhaps 2010 Medication side effects 10/21/200907/21 Hyperprolactinemia 05/21/2009 2 Routine general medical exam ination at a health care facility 08/18/2008 11/29/2011 Overview: 08/18/08 -- establish, from Dr. Mathews (retired) Routine gynecological examination 08/18/2008 11/29/2011 Overview: [facility] [place] Pain in joint, site unspecified 08/29/2007 07/24/2016 Unspecified gastritis and ga stroduodenitis without mention of hemorrhage 02/07/2007 07/24/2016 Localized osteoarthrosis not specified whether primary or secondary, lower leg 02/07/2007 07/24/2016 Overview: Both knees. Indocin helps. Acute gastritis without mention of hemorrhage 01/17/20 07 02/07/2007 Diaphragmatic hernia 01/16/2007 023 Last Assessment & Plan: Assessment: h/o Hyperprolactinemia 10/13/2005 2 Major depressive disorder, r ecurrent episode, unspecified 08/12/2005 11/24/2014 Overview: Dr. Bustamante ([facility]) Osteoarthrosis, unspecified whether generalized or localized, unspecified site 08/12/2005 02/07/2007 documented as of this encounter (statuses as of 09/22/2022) [facility]11-[facility]-2019 History of Past illness Narrative* Problem Noted Date Diagnosed Date Resolved Date Obesity, Class III, BMI >= 40 01/13/2019 07/27/2022 Last Assessment & Plan: Assessment: Body mass index is 76.95 kg/m . Obesity, Class III, BMI >= 40 08/10/2017 10/20/2017 Diabetes mellitus 04/10/2012 11/24/2014 Type II or unspecified type diabetes mellitus without mention of complication, uncontrolled 01/17/2011 04/10/2012 Overview: Previously impaired fasting, converted to DM perhaps 2010 Medication side effects 10/21/200907/21 Hyperprolactinemia 05/21/2009 2 Routine general medical exam ination at a health care facility 08/18/2008 11/29/2011 Overview: 08/18/08 -- establish, from Dr. Mathews (retired) Routine gynecological examination 08/18/2008 11/29/2011 Overview: [facility], [facility] [place] Pain in joint, site unspecified 08/29/2007 07/24/2016 Unspecified gastritis and ga stroduodenitis without mention of hemorrhage 02/07/2007 07/24/2016 Localized osteoarthrosis not specified whether primary or secondary, lower leg 02/07/2007 07/24/2016 Overview: Both knees. Indocin helps. Acute gastritis without mention of hemorrhage 01/17/20 07 02/07/2007 Diaphragmatic hernia 01/16/2007 023 Last Assessment & Plan: Assessment: h/o Hyperprolactinemia 10/13/2005 2 Major depressive disorder, r ecurrent episode, unspecified 08/12/2005 11/24/2014 Overview: Dr. Bustamante ([facility]) Osteoarthrosis, unspecified whether generalized or localized, unspecified site 08/12/2005 02/07/2007 documented as of this encounter (statuses as of 09/25/2022) [facility]11-[facility]-2019 History of Past illness Narrative* Problem Noted Date Diagnosed Date Resolved Date Obesity, Class III, BMI >= 40 01/13/2019 07/27/2022 Last Assessment & Plan: Assessment: Body mass index is 76.95 kg/m . Obesity, Class III, BMI >= 40 08/10/2017 10/20/2017 Diabetes mellitus 04/10/2012 11/24/2014 Type II or unspecified type diabetes mellitus without mention of complication, uncontrolled 01/17/2011 04/10/2012 Overview: Previously impaired fasting, converted to DM perhaps 2010 Medication side effects 10/21/200907/21 Hyperprolactinemia 05/21/2009 2 Routine general medical exam ination at a health care facility 08/18/2008 11/29/2011 Overview: 08/18/08 -- establish, from Dr. Mathews (retired) Routine gynecological examination 08/18/2008 11/29/2011 Overview: [facility], [facility] [place] Pain in joint, site unspecified 08/29/2007 07/24/2016 Unspecified gastritis and ga stroduodenitis without mention of hemorrhage 02/07/2007 07/24/2016 Localized osteoarthrosis not specified whether primary or secondary, lower leg 02/07/2007 07/24/2016 Overview: Both knees. Indocin helps. Acute gastritis without mention of hemorrhage 01/17/20 07 02/07/2007 Diaphragmatic hernia 01/16/2007 023 Last Assessment & Plan: Assessment: h/o Hyperprolactinemia 10/13/2005 2 Major depressive disorder, r ecurrent episode, unspecified 08/12/2005 11/24/2014 Overview: Dr. Bustamante ([facility]) Osteoarthrosis, unspecified whether generalized or localized, unspecified site 08/12/2005 02/07/2007 documented as of this encounter (statuses as of 09/29/2022) [facility]11[facility]2019 History of Past illness Narrative* Problem Noted Date Diagnosed Date Resolved Date Obesity, Class III, BMI >= 40 01/13/2019 07/27/2022 Last Assessment & Plan: Assessment: Body mass index is 76.95 kg/m . Obesity, Class III, BMI >= 40 08/10/2017 10/20/2017 Diabetes mellitus 04/10/2012 11/24/2014 Type II or unspecified type diabetes mellitus without mention of complication, uncontrolled 01/17/2011 04/10/2012 Overview: Previously impaired fasting, converted to DM perhaps 2010 Medication side effects 10/21/200907/21 Hyperprolactinemia 05/21/2009 2 Routine general medical exam ination at a health care facility 08/18/2008 11/29/2011 Overview: 08/18/08 -- establish, from Dr. Mathews (retired) Routine gynecological examination 08/18/2008 11/29/2011 Overview: [facility] [place] Pain in joint, site unspecified 08/29/2007 07/24/2016 Unspecified gastritis and ga stroduodenitis without mention of hemorrhage 02/07/2007 07/24/2016 Localized osteoarthrosis not specified whether primary or secondary, lower leg 02/07/2007 07/24/2016 Overview: Both knees. Indocin helps. Acute gastritis without mention of hemorrhage 01/17/20 07 02/07/2007 Diaphragmatic hernia 01/16/2007 023 Last Assessment & Plan: Assessment: h/o Hyperprolactinemia 10/13/2005 2 Major depressive disorder, r ecurrent episode, unspecified 08/12/2005 11/24/2014 Overview: Dr. Bustamante ([facility]) Osteoarthrosis, unspecified whether generalized or localized, unspecified site 08/12/2005 02/07/2007 documented as of this encounter (statuses as of 10/02/2022) [facility]11-25-2019 History of Past illness Narrative* Problem Noted Date Diagnosed Date Resolved Date Obesity, Class III, BMI >= 40 01/13/2019 07/27/2022 Last Assessment & Plan: Assessment: Body mass index is 76.95 kg/m . Obesity, Class III, BMI >= 40 08/10/2017 10/20/2017 Diabetes mellitus 04/10/2012 11/24/2014 Type II or unspecified type diabetes mellitus without mention of complication, uncontrolled 01/17/2011 04/10/2012 Overview: Previously impaired fasting, converted to DM perhaps 2010 Medication side effects 10/21/200907/21 Hyperprolactinemia 05/21/2009 2 Routine general medical exam ination at a health care facility 08/18/2008 11/29/2011 Overview: 08/18/08 -- establish, from Dr. Mathews (retired) Routine gynecological examination 08/18/2008 11/29/2011 Overview: [facility], [facility] [place] Pain in joint, site unspecified 08/29/2007 07/24/2016 Unspecified gastritis and ga stroduodenitis without mention of hemorrhage 02/07/2007 07/24/2016 Localized osteoarthrosis not specified whether primary or secondary, lower leg 02/07/2007 07/24/2016 Overview: Both knees. Indocin helps. Acute gastritis without mention of hemorrhage 01/17/20 07 02/07/2007 Diaphragmatic hernia 01/16/2007 023 Last Assessment & Plan: Assessment: h/o Hyperprolactinemia 10/13/2005 2 Major depressive disorder, r ecurrent episode, unspecified 08/12/2005 11/24/2014 Overview: Dr. Bustamante ([facility]) Osteoarthrosis, unspecified whether generalized or localized, unspecified site 08/12/2005 02/07/2007 documented as of this encounter (statuses as of 10/05/2022) [facility]11[facility]-2019 History of Past illness Narrative* Problem Noted Date Diagnosed Date Resolved Date Obesity, Class III, BMI >= 40 01/13/2019 07/27/2022 Last Assessment & Plan: Assessment: Body mass index is 76.95 kg/m . Obesity, Class III, BMI >= 40 08/10/2017 10/20/2017 Diabetes mellitus 04/10/2012 11/24/2014 Type II or unspecified type diabetes mellitus without mention of complication, uncontrolled 01/17/2011 04/10/2012 Overview: Previously impaired fasting, converted to DM perhaps 2010 Medication side effects 10/21/200907/21 Hyperprolactinemia 05/21/2009 2 Routine general medical exam ination at a health care facility 08/18/2008 11/29/2011 Overview: 08/18/08 -- establish, from Dr. Mathews (retired) Routine gynecological examination 08/18/2008 11/29/2011 Overview: [facility] [place] Pain in joint, site unspecified 08/29/2007 07/24/2016 Unspecified gastritis and ga stroduodenitis without mention of hemorrhage 02/07/2007 07/24/2016 Localized osteoarthrosis not specified whether primary or secondary, lower leg 02/07/2007 07/24/2016 Overview: Both knees. Indocin helps. Acute gastritis without mention of hemorrhage 01/17/20 07 02/07/2007 Diaphragmatic hernia 01/16/2007 023 Last Assessment & Plan: Assessment: h/o Hyperprolactinemia 10/13/2005 2 Major depressive disorder, r ecurrent episode, unspecified 08/12/2005 11/24/2014 Overview: Dr. Bustamante ([facility]) Osteoarthrosis, unspecified whether generalized or localized, unspecified site 08/12/2005 02/07/2007 documented as of this encounter (statuses as of 10/06/2022) [facility]11[facility]2019 History of Past illness Narrative* Problem Noted Date Diagnosed Date Resolved Date Obesity, Class III, BMI >= 40 01/13/2019 07/27/2022 Last Assessment & Plan: Assessment: Body mass index is 76.95 kg/m . Obesity, Class III, BMI >= 40 08/10/2017 10/20/2017 Diabetes mellitus 04/10/2012 11/24/2014 Type II or unspecified type diabetes mellitus without mention of complication, uncontrolled 01/17/2011 04/10/2012 Overview: Previously impaired fasting, converted to DM perhaps 2010 Medication side effects 10/21/200907/21 Hyperprolactinemia 05/21/2009 2 Routine general medical exam ination at a health care facility 08/18/2008 11/29/2011 Overview: 08/18/08 -- establish, from Dr. Mathews (retired) Routine gynecological examination 08/18/2008 11/29/2011 Overview: [facility], [facility] [place] Pain in joint, site unspecified 08/29/2007 07/24/2016 Unspecified gastritis and ga stroduodenitis without mention of hemorrhage 02/07/2007 07/24/2016 Localized osteoarthrosis not specified whether primary or secondary, lower leg 02/07/2007 07/24/2016 Overview: Both knees. Indocin helps. Acute gastritis without mention of hemorrhage 01/17/20 07 02/07/2007 Diaphragmatic hernia 01/16/2007 023 Last Assessment & Plan: Assessment: h/o Hyperprolactinemia 10/13/2005 2 Major depressive disorder, r ecurrent episode, unspecified 08/12/2005 11/24/2014 Overview: Dr. Bustamante ([facility]) Osteoarthrosis, unspecified whether generalized or localized, unspecified site 08/12/2005 02/07/2007 documented as of this encounter (statuses as of 10/11/2022) [facility]2019 History of Past illness Narrative* Problem Noted Date Diagnosed Date Resolved Date Obesity, Class III, BMI >= 40 01/13/2019 07/27/2022 Last Assessment & Plan: Assessment: Body mass index is 76.95 kg/m . Obesity, Class III, BMI >= 40 08/10/2017 10/20/2017 Diabetes mellitus 04/10/2012 11/24/2014 Type II or unspecified type diabetes mellitus without mention of complication, uncontrolled 01/17/2011 04/10/2012 Overview: Previously impaired fasting, converted to DM perhaps 2010 Medication side effects 10/21/200907/21 Hyperprolactinemia 05/21/2009 2 Routine general medical exam ination at a health care facility 08/18/2008 11/29/2011 Overview: 08/18/08 -- establish, from Dr. Mathews (retired) Routine gynecological examination 08/18/2008 11/29/2011 Overview: [facility] [place] Pain in joint, site unspecified 08/29/2007 07/24/2016 Unspecified gastritis and ga stroduodenitis without mention of hemorrhage 02/07/2007 07/24/2016 Localized osteoarthrosis not specified whether primary or secondary, lower leg 02/07/2007 07/24/2016 Overview: Both knees. Indocin helps. Acute gastritis without mention of hemorrhage 01/17/20 07 02/07/2007 Diaphragmatic hernia 01/16/2007 023 Last Assessment & Plan: Assessment: h/o Hyperprolactinemia 10/13/2005 2 Major depressive disorder, r ecurrent episode, unspecified 08/12/2005 11/24/2014 Overview: Dr. Bustamante ([facility]) Osteoarthrosis, unspecified whether generalized or localized, unspecified site 08/12/2005 02/07/2007 documented as of this encounter (statuses as of 10/20/2022) [facility]2019 History of Past illness Narrative* Problem Noted Date Diagnosed Date Resolved Date Obesity, Class III, BMI >= 40 01/13/2019 07/27/2022 Last Assessment & Plan: Assessment: Body mass index is 76.95 kg/m . Obesity, Class III, BMI >= 40 08/10/2017 10/20/2017 Diabetes mellitus 04/10/2012 11/24/2014 Type II or unspecified type diabetes mellitus without mention of complication, uncontrolled 01/17/2011 04/10/2012 Overview: Previously impaired fasting, converted to DM perhaps 2010 Medication side effects 10/21/200907/21 Hyperprolactinemia 05/21/2009 2 Routine general medical exam ination at a health care facility 08/18/2008 11/29/2011 Overview: 08/18/08 -- establish, from Dr. Mathews (retired) Routine gynecological examination 08/18/2008 11/29/2011 Overview: [facility], [facility] [place] Pain in joint, site unspecified 08/29/2007 07/24/2016 Unspecified gastritis and ga stroduodenitis without mention of hemorrhage 02/07/2007 07/24/2016 Localized osteoarthrosis not specified whether primary or secondary, lower leg 02/07/2007 07/24/2016 Overview: Both knees. Indocin helps. Acute gastritis without mention of hemorrhage 01/17/20 07 02/07/2007 Diaphragmatic hernia 01/16/2007 023 Last Assessment & Plan: Assessment: h/o Hyperprolactinemia 10/13/2005 2 Major depressive disorder, r ecurrent episode, unspecified 08/12/2005 11/24/2014 Overview: Dr. Bustamante ([facility]) Osteoarthrosis, unspecified whether generalized or localized, unspecified site 08/12/2005 02/07/2007 documented as of this encounter (statuses as of 11/08/2022) [facility] History of Past illness Narrative* Problem Noted Date Diagnosed Date Resolved Date Obesity, Class III, BMI >= 40 01/13/2019 07/27/2022 Last Assessment & Plan: Assessment: Body mass index is 76.95 kg/m . Obesity, Class III, BMI >= 40 08/10/2017 10/20/2017 Diabetes mellitus 04/10/2012 11/24/2014 Type II or unspecified type diabetes mellitus without mention of complication, uncontrolled 01/17/2011 04/10/2012 Overview: Previously impaired fasting, converted to DM perhaps 2010 Medication side effects 10/21/200907/21 Hyperprolactinemia 05/21/2009 2 Routine general medical exam ination at a health care facility 08/18/2008 11/29/2011 Overview: 08/18/08 -- establish, from Dr. Mathews (retired) Routine gynecological examination 08/18/2008 11/29/2011 Overview: [facility], [facility] [place] Pain in joint, site unspecified 08/29/2007 07/24/2016 Unspecified gastritis and ga stroduodenitis without mention of hemorrhage 02/07/2007 07/24/2016 Localized osteoarthrosis not specified whether primary or secondary, lower leg 02/07/2007 07/24/2016 Overview: Both knees. Indocin helps. Acute gastritis without mention of hemorrhage 01/17/20 07 02/07/2007 Diaphragmatic hernia 01/16/2007 023 Last Assessment & Plan: Assessment: h/o Hyperprolactinemia 10/13/2005 2 Major depressive disorder, r ecurrent episode, unspecified 08/12/2005 11/24/2014 Overview: Dr. Bustamante ([facility]) Osteoarthrosis, unspecified whether generalized or localized, unspecified site 08/12/2005 02/07/2007 documented as of this encounter (statuses as of 11/29/2022) [facility] History of Past illness Narrative* Problem Noted Date Diagnosed Date Resolved Date Obesity, Class III, BMI >= 40 01/13/2019 07/27/2022 Last Assessment & Plan: Assessment: Body mass index is 76.95 kg/m . Obesity, Class III, BMI >= 40 08/10/2017 10/20/2017 Diabetes mellitus 04/10/2012 11/24/2014 Type II or unspecified type diabetes mellitus without mention of complication, uncontrolled 01/17/2011 04/10/2012 Overview: Previously impaired fasting, converted to DM perhaps 2010 Medication side effects 10/21/200907/21 Hyperprolactinemia 05/21/2009 2 Routine general medical exam ination at a health care facility 08/18/2008 11/29/2011 Overview: 08/18/08 -- establish, from Dr. Mathews (retired) Routine gynecological examination 08/18/2008 11/29/2011 Overview: [facility], [facility] [place] Pain in joint, site unspecified 08/29/2007 07/24/2016 Unspecified gastritis and ga stroduodenitis without mention of hemorrhage 02/07/2007 07/24/2016 Localized osteoarthrosis not specified whether primary or secondary, lower leg 02/07/2007 07/24/2016 Overview: Both knees. Indocin helps. Acute gastritis without mention of hemorrhage 01/17/20 07 02/07/2007 Diaphragmatic hernia 01/16/2007 023 Last Assessment & Plan: Assessment: h/o Hyperprolactinemia 10/13/2005 2 Major depressive disorder, r ecurrent episode, unspecified 08/12/2005 11/24/2014 Overview: Dr. Bustamante ([facility]) Osteoarthrosis, unspecified whether generalized or localized, unspecified site 08/12/2005 02/07/2007 documented as of this encounter (statuses as of 12/20/2022) [facility] History of Past illness Narrative* Problem Noted Date Diagnosed Date Resolved Date Obesity, Class III, BMI >= 40 01/13/2019 07/27/2022 Last Assessment & Plan: Assessment: Body mass index is 76.95 kg/m . Obesity, Class III, BMI >= 40 08/10/2017 10/20/2017 Diabetes mellitus 04/10/2012 11/24/2014 Type II or unspecified type diabetes mellitus without mention of complication, uncontrolled 01/17/2011 04/10/2012 Overview: Previously impaired fasting, converted to DM perhaps 2010 Medication side effects 10/21/200907/21 Hyperprolactinemia 05/21/2009 2 Routine general medical exam ination at a health care facility 08/18/2008 11/29/2011 Overview: 08/18/08 -- establish, from Dr. Mathews (retired) Routine gynecological examination 08/18/2008 11/29/2011 Overview: [facility], [facility] [place] Pain in joint, site unspecified 08/29/2007 07/24/2016 Unspecified gastritis and ga stroduodenitis without mention of hemorrhage 02/07/2007 07/24/2016 Localized osteoarthrosis not specified whether primary or secondary, lower leg 02/07/2007 07/24/2016 Overview: Both knees. Indocin helps. Acute gastritis without mention of hemorrhage 01/17/20 07 02/07/2007 Diaphragmatic hernia 01/16/2007 023 Last Assessment & Plan: Assessment: h/o Hyperprolactinemia 10/13/2005 2 Major depressive disorder, r ecurrent episode, unspecified 08/12/2005 11/24/2014 Overview: Dr. Bustamante ([facility]) Osteoarthrosis, unspecified whether generalized or localized, unspecified site 08/12/2005 02/07/2007 documented as of this encounter (statuses as of 12/24/2022) [facility]11-25-2019 History of Past illness Narrative* Problem Noted Date Diagnosed Date Resolved Date Obesity, Class III, BMI >= 40 01/13/2019 07/27/2022 Last Assessment & Plan: Assessment: Body mass index is 76.95 kg/m . Obesity, Class III, BMI >= 40 08/10/2017 10/20/2017 Diabetes mellitus 04/10/2012 11/24/2014 Type II or unspecified type diabetes mellitus without mention of complication, uncontrolled 01/17/2011 04/10/2012 Overview: Previously impaired fasting, converted to DM perhaps 2010 Medication side effects 10/21/200907/21 Hyperprolactinemia 05/21/2009 2 Routine general medical exam ination at a health care facility 08/18/2008 11/29/2011 Overview: 08/18/08 -- establish, from Dr. Mathews (retired) Routine gynecological examination 08/18/2008 11/29/2011 Overview: [facility], [facility] [place] Pain in joint, site unspecified 08/29/2007 07/24/2016 Unspecified gastritis and ga stroduodenitis without mention of hemorrhage 02/07/2007 07/24/2016 Localized osteoarthrosis not specified whether primary or secondary, lower leg 02/07/2007 07/24/2016 Overview: Both knees. Indocin helps. Acute gastritis without mention of hemorrhage 01/17/20 07 02/07/2007 Diaphragmatic hernia 01/16/2007 023 Last Assessment & Plan: Assessment: h/o Hyperprolactinemia 10/13/2005 2 Major depressive disorder, r ecurrent episode, unspecified 08/12/2005 11/24/2014 Overview: Dr. Bustamante ([facility]) Osteoarthrosis, unspecified whether generalized or localized, unspecified site 08/12/2005 02/07/2007 documented as of this encounter (statuses as of 12/24/2022) [facility]2019 History of Past illness Narrative* Problem Noted Date Diagnosed Date Resolved Date Obesity, Class III, BMI >= 40 01/13/2019 07/27/2022 Last Assessment & Plan: Assessment: Body mass index is 76.95 kg/m . Obesity, Class III, BMI >= 40 08/10/2017 10/20/2017 Diabetes mellitus 04/10/2012 11/24/2014 Type II or unspecified type diabetes mellitus without mention of complication, uncontrolled 01/17/2011 04/10/2012 Overview: Previously impaired fasting, converted to DM perhaps 2010 Medication side effects 10/21/200907/21 Hyperprolactinemia 05/21/2009 2 Routine general medical exam ination at a health care facility 08/18/2008 11/29/2011 Overview: 08/18/08 -- establish, from Dr. Mathews (retired) Routine gynecological examination 08/18/2008 11/29/2011 Overview: [facility], [facility] [place] Pain in joint, site unspecified 08/29/2007 07/24/2016 Unspecified gastritis and ga stroduodenitis without mention of hemorrhage 02/07/2007 07/24/2016 Localized osteoarthrosis not specified whether primary or secondary, lower leg 02/07/2007 07/24/2016 Overview: Both knees. Indocin helps. Acute gastritis without mention of hemorrhage 01/17/20 07 02/07/2007 Diaphragmatic hernia 01/16/2007 023 Last Assessment & Plan: Assessment: h/o Hyperprolactinemia 10/13/2005 2 Major depressive disorder, r ecurrent episode, unspecified 08/12/2005 11/24/2014 Overview: Dr. Bustamante ([facility]) Osteoarthrosis, unspecified whether generalized or localized, unspecified site 08/12/2005 02/07/2007 documented as of this encounter (statuses as of 12/24/2022) [facility]2019 History of Past illness Narrative* Problem Noted Date Diagnosed Date Resolved Date Obesity, Class III, BMI >= 40 01/13/2019 07/27/2022 Last Assessment & Plan: Assessment: Body mass index is 76.95 kg/m . Obesity, Class III, BMI >= 40 08/10/2017 10/20/2017 Diabetes mellitus 04/10/2012 11/24/2014 Type II or unspecified type diabetes mellitus without mention of complication, uncontrolled 01/17/2011 04/10/2012 Overview: Previously impaired fasting, converted to DM perhaps 2010 Medication side effects 10/21/200907/21 Hyperprolactinemia 05/21/2009 2 Routine general medical exam ination at a health care facility 08/18/2008 11/29/2011 Overview: 08/18/08 -- establish, from Dr. Mathews (retired) Routine gynecological examination 08/18/2008 11/29/2011 Overview: [facility], [facility] [place] Pain in joint, site unspecified 08/29/2007 07/24/2016 Unspecified gastritis and ga stroduodenitis without mention of hemorrhage 02/07/2007 07/24/2016 Localized osteoarthrosis not specified whether primary or secondary, lower leg 02/07/2007 07/24/2016 Overview: Both knees. Indocin helps. Acute gastritis without mention of hemorrhage 01/17/20 07 02/07/2007 Diaphragmatic hernia 01/16/2007 023 Last Assessment & Plan: Assessment: h/o Hyperprolactinemia 10/13/2005 2 Major depressive disorder, r ecurrent episode, unspecified 08/12/2005 11/24/2014 Overview: Dr. Bustamante ([facility]) Osteoarthrosis, unspecified whether generalized or localized, unspecified site 08/12/2005 02/07/2007 documented as of this encounter (statuses as of 12/24/2022) [facility]2019 History of Past illness Narrative* Problem Noted Date Diagnosed Date Resolved Date Obesity, Class III, BMI >= 40 01/13/2019 07/27/2022 Last Assessment & Plan: Assessment: Body mass index is 76.95 kg/m . Obesity, Class III, BMI >= 40 08/10/2017 10/20/2017 Diabetes mellitus 04/10/2012 11/24/2014 Type II or unspecified type diabetes mellitus without mention of complication, uncontrolled 01/17/2011 04/10/2012 Overview: Previously impaired fasting, converted to DM perhaps 2010 Medication side effects 10/21/200907/21 Hyperprolactinemia 05/21/2009 2 Routine general medical exam ination at a health care facility 08/18/2008 11/29/2011 Overview: 08/18/08 -- establish, from Dr. Mathews (retired) Routine gynecological examination 08/18/2008 11/29/2011 Overview: [facility], [facility] [place] Pain in joint, site unspecified 08/29/2007 07/24/2016 Unspecified gastritis and ga stroduodenitis without mention of hemorrhage 02/07/2007 07/24/2016 Localized osteoarthrosis not specified whether primary or secondary, lower leg 02/07/2007 07/24/2016 Overview: Both knees. Indocin helps. Acute gastritis without mention of hemorrhage 01/17/20 07 02/07/2007 Diaphragmatic hernia 01/16/2007 023 Last Assessment & Plan: Assessment: h/o Hyperprolactinemia 10/13/2005 2 Major depressive disorder, r ecurrent episode, unspecified 08/12/2005 11/24/2014 Overview: Dr. Bustamante ([facility]) Osteoarthrosis, unspecified whether generalized or localized, unspecified site 08/12/2005 02/07/2007 documented as of this encounter (statuses as of 12/29/2022) [facility] History of Past illness Narrative* Problem Noted Date Diagnosed Date Resolved Date Obesity, Class III, BMI >= 40 01/13/2019 07/27/2022 Last Assessment & Plan: Assessment: Body mass index is 76.95 kg/m . Obesity, Class III, BMI >= 40 08/10/2017 10/20/2017 Diabetes mellitus 04/10/2012 11/24/2014 Type II or unspecified type diabetes mellitus without mention of complication, uncontrolled 01/17/2011 04/10/2012 Overview: Previously impaired fasting, converted to DM perhaps 2010 Medication side effects 10/21/200907/21 Hyperprolactinemia 05/21/2009 2 Routine general medical exam ination at a health care facility 08/18/2008 11/29/2011 Overview: 08/18/08 -- establish, from Dr. Mathews (retired) Routine gynecological examination 08/18/2008 11/29/2011 Overview: [facility], [facility] [place] Pain in joint, site unspecified 08/29/2007 07/24/2016 Unspecified gastritis and ga stroduodenitis without mention of hemorrhage 02/07/2007 07/24/2016 Localized osteoarthrosis not specified whether primary or secondary, lower leg 02/07/2007 07/24/2016 Overview: Both knees. Indocin helps. Acute gastritis without mention of hemorrhage 01/17/20 07 02/07/2007 Diaphragmatic hernia 01/16/2007 023 Last Assessment & Plan: Assessment: h/o Hyperprolactinemia 10/13/2005 2 Major depressive disorder, r ecurrent episode, unspecified 08/12/2005 11/24/2014 Overview: Dr. Bustamante ([facility]) Osteoarthrosis, unspecified whether generalized or localized, unspecified site 08/12/2005 02/07/2007 documented as of this encounter (statuses as of 01/10/2023) [facility] History of Past illness Narrative* Problem Noted Date Diagnosed Date Resolved Date Obesity, Class III, BMI >= 40 01/13/2019 07/27/2022 Last Assessment & Plan: Assessment: Body mass index is 76.95 kg/m . Obesity, Class III, BMI >= 40 08/10/2017 10/20/2017 Diabetes mellitus 04/10/2012 11/24/2014 Type II or unspecified type diabetes mellitus without mention of complication, uncontrolled 01/17/2011 04/10/2012 Overview: Previously impaired fasting, converted to DM perhaps 2010 Medication side effects 10/21/200907/21 Hyperprolactinemia 05/21/2009 2 Routine general medical exam ination at a health care facility 08/18/2008 11/29/2011 Overview: 08/18/08 -- establish, from Dr. Mathews (retired) Routine gynecological examination 08/18/2008 11/29/2011 Overview: [facility], [facility] [place] Pain in joint, site unspecified 08/29/2007 07/24/2016 Unspecified gastritis and ga stroduodenitis without mention of hemorrhage 02/07/2007 07/24/2016 Localized osteoarthrosis not specified whether primary or secondary, lower leg 02/07/2007 07/24/2016 Overview: Both knees. Indocin helps. Acute gastritis without mention of hemorrhage 01/17/20 07 02/07/2007 Diaphragmatic hernia 01/16/2007 023 Last Assessment & Plan: Assessment: h/o Hyperprolactinemia 10/13/2005 2 Major depressive disorder, r ecurrent episode, unspecified 08/12/2005 11/24/2014 Overview: Dr. Bustamante ([facility]) Osteoarthrosis, unspecified whether generalized or localized, unspecified site 08/12/2005 02/07/2007 documented as of this encounter (statuses as of 01/16/2023) [facility]2019 History of Past illness Narrative* Problem Noted Date Diagnosed Date Resolved Date Obesity, Class III, BMI >= 40 01/13/2019 07/27/2022 Last Assessment & Plan: Assessment: Body mass index is 76.95 kg/m . Obesity, Class III, BMI >= 40 08/10/2017 10/20/2017 Diabetes mellitus 04/10/2012 11/24/2014 Type II or unspecified type diabetes mellitus without mention of complication, uncontrolled 01/17/2011 04/10/2012 Overview: Previously impaired fasting, converted to DM perhaps 2010 Medication side effects 10/21/200907/21 Hyperprolactinemia 05/21/2009 2 Routine general medical exam ination at a health care facility 08/18/2008 11/29/2011 Overview: 08/18/08 -- establish, from Dr. Mathews (retired) Routine gynecological examination 08/18/2008 11/29/2011 Overview: [facility], [facility] [place] Pain in joint, site unspecified 08/29/2007 07/24/2016 Unspecified gastritis and ga stroduodenitis without mention of hemorrhage 02/07/2007 07/24/2016 Localized osteoarthrosis not specified whether primary or secondary, lower leg 02/07/2007 07/24/2016 Overview: Both knees. Indocin helps. Acute gastritis without mention of hemorrhage 01/17/20 07 02/07/2007 Diaphragmatic hernia 01/16/2007 023 Last Assessment & Plan: Assessment: h/o Hyperprolactinemia 10/13/2005 2 Major depressive disorder, r ecurrent episode, unspecified 08/12/2005 11/24/2014 Overview: Dr. Bustamante ([facility]) Osteoarthrosis, unspecified whether generalized or localized, unspecified site 08/12/2005 02/07/2007 documented as of this encounter (statuses as of 01/24/2023) [facility]2019 History of Past illness Narrative* Problem Noted Date Diagnosed Date Resolved Date Obesity, Class III, BMI >= 40 01/13/2019 07/27/2022 Last Assessment & Plan: Assessment: Body mass index is 76.95 kg/m . Obesity, Class III, BMI >= 40 08/10/2017 10/20/2017 Diabetes mellitus 04/10/2012 11/24/2014 Type II or unspecified type diabetes mellitus without mention of complication, uncontrolled 01/17/2011 04/10/2012 Overview: Previously impaired fasting, converted to DM perhaps 2010 Medication side effects 10/21/200907/21 Hyperprolactinemia 05/21/2009 2 Routine general medical exam ination at a health care facility 08/18/2008 11/29/2011 Overview: 08/18/08 -- establish, from Dr. Mathews (retired) Routine gynecological examination 08/18/2008 11/29/2011 Overview: [facility], [facility] [place] Pain in joint, site unspecified 08/29/2007 07/24/2016 Unspecified gastritis and ga stroduodenitis without mention of hemorrhage 02/07/2007 07/24/2016 Localized osteoarthrosis not specified whether primary or secondary, lower leg 02/07/2007 07/24/2016 Overview: Both knees. Indocin helps. Acute gastritis without mention of hemorrhage 01/17/20 07 02/07/2007 Diaphragmatic hernia 01/16/2007 023 Last Assessment & Plan: Assessment: h/o Hyperprolactinemia 10/13/2005 2 Major depressive disorder, r ecurrent episode, unspecified 08/12/2005 11/24/2014 Overview: Dr. Bustamante ([facility]) Osteoarthrosis, unspecified whether generalized or localized, unspecified site 08/12/2005 02/07/2007 documented as of this encounter (statuses as of 01/26/2023) [facility]2019 History of Past illness Narrative* Problem Noted Date Diagnosed Date Resolved Date Obesity, Class III, BMI >= 40 01/13/2019 07/27/2022 Last Assessment & Plan: Assessment: Body mass index is 76.95 kg/m . Obesity, Class III, BMI >= 40 08/10/2017 10/20/2017 Diabetes mellitus 04/10/2012 11/24/2014 Type II or unspecified type diabetes mellitus without mention of complication, uncontrolled 01/17/2011 04/10/2012 Overview: Previously impaired fasting, converted to DM perhaps 2010 Medication side effects 10/21/200907/21 Hyperprolactinemia 05/21/2009 2 Routine general medical exam ination at a health care facility 08/18/2008 11/29/2011 Overview: 08/18/08 -- establish, from Dr. Mathews (retired) Routine gynecological examination 08/18/2008 11/29/2011 Overview: [facility], [facility] [place] Pain in joint, site unspecified 08/29/2007 07/24/2016 Unspecified gastritis and ga stroduodenitis without mention of hemorrhage 02/07/2007 07/24/2016 Localized osteoarthrosis not specified whether primary or secondary, lower leg 02/07/2007 07/24/2016 Overview: Both knees. Indocin helps. Acute gastritis without mention of hemorrhage 01/17/20 07 02/07/2007 Diaphragmatic hernia 01/16/2007 023 Last Assessment & Plan: Assessment: h/o Hyperprolactinemia 10/13/2005 2 Major depressive disorder, r ecurrent episode, unspecified 08/12/2005 11/24/2014 Overview: Dr. Bustamante ([facility]) Osteoarthrosis, unspecified whether generalized or localized, unspecified site 08/12/2005 02/07/2007 documented as of this encounter (statuses as of 03/29/2023) [facility] History of Past illness Narrative* Problem Noted Date Diagnosed Date Resolved Date Obesity, Class III, BMI >= 40 01/13/2019 07/27/2022 Last Assessment & Plan: Assessment: Body mass index is 76.95 kg/m . Obesity, Class III, BMI >= 40 08/10/2017 10/20/2017 Diabetes mellitus 04/10/2012 11/24/2014 Type II or unspecified type diabetes mellitus without mention of complication, uncontrolled 01/17/2011 04/10/2012 Overview: Previously impaired fasting, converted to DM perhaps 2010 Medication side effects 10/21/200907/21 Hyperprolactinemia 05/21/2009 2 Routine general medical exam ination at a health care facility 08/18/2008 11/29/2011 Overview: 08/18/08 -- establish, from Dr. Mathews (retired) Routine gynecological examination 08/18/2008 11/29/2011 Overview: [facility], [facility] [place] Pain in joint, site unspecified 08/29/2007 07/24/2016 Unspecified gastritis and ga stroduodenitis without mention of hemorrhage 02/07/2007 07/24/2016 Localized osteoarthrosis not specified whether primary or secondary, lower leg 02/07/2007 07/24/2016 Overview: Both knees. Indocin helps. Acute gastritis without mention of hemorrhage 01/17/20 07 02/07/2007 Diaphragmatic hernia 01/16/2007 023 Last Assessment & Plan: Assessment: h/o Hyperprolactinemia 10/13/2005 2 Major depressive disorder, r ecurrent episode, unspecified 08/12/2005 11/24/2014 Overview: Dr. Bustamante ([facility]) Osteoarthrosis, unspecified whether generalized or localized, unspecified site 08/12/2005 02/07/2007 documented as of this encounter (statuses as of 04/05/2023) [facility] History of Past illness Narrative* Problem Noted Date Diagnosed Date Resolved Date Obesity, Class III, BMI >= 40 01/13/2019 07/27/2022 Last Assessment & Plan: Assessment: Body mass index is 76.95 kg/m . Obesity, Class III, BMI >= 40 08/10/2017 10/20/2017 Diabetes mellitus 04/10/2012 11/24/2014 Type II or unspecified type diabetes mellitus without mention of complication, uncontrolled 01/17/2011 04/10/2012 Overview: Previously impaired fasting, converted to DM perhaps 2010 Medication side effects 10/21/200907/21 Hyperprolactinemia 05/21/2009 2 Routine general medical exam ination at a health care facility 08/18/2008 11/29/2011 Overview: 08/18/08 -- establish, from Dr. Mathews (retired) Routine gynecological examination 08/18/2008 11/29/2011 Overview: [facility], [facility] [place] Pain in joint, site unspecified 08/29/2007 07/24/2016 Unspecified gastritis and ga stroduodenitis without mention of hemorrhage 02/07/2007 07/24/2016 Localized osteoarthrosis not specified whether primary or secondary, lower leg 02/07/2007 07/24/2016 Overview: Both knees. Indocin helps. Acute gastritis without mention of hemorrhage 01/17/20 07 02/07/2007 Diaphragmatic hernia 01/16/2007 023 Last Assessment & Plan: Assessment: h/o Hyperprolactinemia 10/13/2005 2 Major depressive disorder, r ecurrent episode, unspecified 08/12/2005 11/24/2014 Overview: Dr. Bustamante ([facility]) Osteoarthrosis, unspecified whether generalized or localized, unspecified site 08/12/2005 02/07/2007 documented as of this encounter (statuses as of 04/05/2023) [facility] History of Past illness Narrative* Problem Noted Date Diagnosed Date Resolved Date Obesity, Class III, BMI >= 40 01/13/2019 07/27/2022 Last Assessment & Plan: Assessment: Body mass index is 76.95 kg/m . Obesity, Class III, BMI >= 40 08/10/2017 10/20/2017 Diabetes mellitus 04/10/2012 11/24/2014 Type II or unspecified type diabetes mellitus without mention of complication, uncontrolled 01/17/2011 04/10/2012 Overview: Previously impaired fasting, converted to DM perhaps 2010 Medication side effects 10/21/2009 06/2 03/2017 Hyperprolactinemia 05/21/2009 2 Routine general medical exam ination at a health care facility 08/18/2008 11/29/2011 Overview: 08/18/08 -- establish, from Dr. Mathews (retired) Routine gynecological examination 08/18/2008 11/29/2011 Overview: [facility], [facility] [place] Pain in joint, site unspecified 08/29/2007 07/24/2016 Unspecified gastritis and ga stroduodenitis without mention of hemorrhage 02/07/2007 07/24/2016 Localized osteoarthrosis not specified whether primary or secondary, lower leg 02/07/2007 07/24/2016 Overview: Both knees. Indocin helps. Acute gastritis without mention of hemorrhage 01/17/20 07 02/07/2007 Diaphragmatic hernia 01/16/2007 023 Last Assessment & Plan: Assessment: h/o Hyperprolactinemia 10/13/2005 2 Major depressive disorder, r ecurrent episode, unspecified 08/12/2005 11/24/2014 Overview: Dr. Bustamante ([facility]) Osteoarthrosis, unspecified whether generalized or localized, unspecified site 08/12/2005 02/07/2007 documented as of this encounter (statuses as of 04/09/2023) [facility] History of Past illness Narrative* Problem Noted Date Diagnosed Date Resolved Date Obesity, Class III, BMI >= 40 01/13/2019 07/27/2022 Last Assessment & Plan: Assessment: Body mass index is 76.95 kg/m . Obesity, Class III, BMI >= 40 08/10/2017 10/20/2017 Diabetes mellitus 04/10/2012 11/24/2014 Type II or unspecified type diabetes mellitus without mention of complication, uncontrolled 01/17/2011 04/10/2012 Overview: Previously impaired fasting, converted to DM perhaps 2010 Medication side effects 10/21/200907/21 Hyperprolactinemia 05/21/2009 2 Routine general medical exam ination at a health care facility 08/18/2008 11/29/2011 Overview: 08/18/08 -- establish, from Dr. Mathews (retired) Routine gynecological examination 08/18/2008 11/29/2011 Overview: [facility] [place] Pain in joint, site unspecified 08/29/2007 07/24/2016 Unspecified gastritis and ga stroduodenitis without mention of hemorrhage 02/07/2007 07/24/2016 Localized osteoarthrosis not specified whether primary or secondary, lower leg 02/07/2007 07/24/2016 Overview: Both knees. Indocin helps. Acute gastritis without mention of hemorrhage 01/17/20 07 02/07/2007 Diaphragmatic hernia 01/16/2007 023 Last Assessment & Plan: Assessment: h/o Hyperprolactinemia 10/13/2005 2 Major depressive disorder, r ecurrent episode, unspecified 08/12/2005 11/24/2014 Overview: Dr. Bustamante ([facility]) Osteoarthrosis, unspecified whether generalized or localized, unspecified site 08/12/2005 02/07/2007 documented as of this encounter (statuses as of 04/16/2023) [facility] History of Past illness Narrative* Problem Noted Date Diagnosed Date Resolved Date Obesity, Class III, BMI >= 40 01/13/2019 07/27/2022 Last Assessment & Plan: Assessment: Body mass index is 76.95 kg/m . Obesity, Class III, BMI >= 40 08/10/2017 10/20/2017 Diabetes mellitus 04/10/2012 11/24/2014 Type II or unspecified type diabetes mellitus without mention of complication, uncontrolled 01/17/2011 04/10/2012 Overview: Previously impaired fasting, converted to DM perhaps 2010 Medication side effects 10/21/200907/21 Hyperprolactinemia 05/21/2009 Routine general medical exam ination at a health care facility 08/18/2008 11/29/2011 Overview: 08/18/08 -- establish, from Dr. Mathews (retired) Routine gynecological examination 08/18/2008 11/29/2011 Overview: [facility] [place] Pain in joint, site unspecified 08/29/2007 07/24/2016 Unspecified gastritis and ga stroduodenitis without mention of hemorrhage 02/07/2007 07/24/2016 Localized osteoarthrosis not specified whether primary or secondary, lower leg 02/07/2007 07/24/2016 Overview: Both knees. Indocin helps. Acute gastritis without mention of hemorrhage 01/17/20 07 02/07/2007 Diaphragmatic hernia 01/16/2007 023 Last Assessment & Plan: Assessment: h/o Hyperprolactinemia 10/13/2005 2 Major depressive disorder, r ecurrent episode, unspecified 08/12/2005 11/24/2014 Overview: Dr. Bustamante ([facility]) Osteoarthrosis, unspecified whether generalized or localized, unspecified site 08/12/2005 02/07/2007 documented as of this encounter (statuses as of 05/07/2023) [facility]11-25-2019 History of Past illness Narrative* Problem Noted Date Diagnosed Date Resolved Date Obesity, Class III, BMI >= 40 01/13/2019 07/27/2022 Last Assessment & Plan: Assessment: Body mass index is 76.95 kg/m . Obesity, Class III, BMI >= 40 08/10/2017 10/20/2017 Diabetes mellitus 04/10/2012 11/24/2014 Type II or unspecified type diabetes mellitus without mention of complication, uncontrolled 01/17/2011 04/10/2012 Overview: Previously impaired fasting, converted to DM perhaps 2010 Medication side effects 10/21/200907/21 Hyperprolactinemia 05/21/2009 2 Routine general medical exam ination at a health care facility 08/18/2008 11/29/2011 Overview: 08/18/08 -- establish, from Dr. Mathews (retired) Routine gynecological examination 08/18/2008 11/29/2011 Overview: [facility], [facility] [place] Pain in joint, site unspecified 08/29/2007 07/24/2016 Unspecified gastritis and ga stroduodenitis without mention of hemorrhage 02/07/2007 07/24/2016 Localized osteoarthrosis not specified whether primary or secondary, lower leg 02/07/2007 07/24/2016 Overview: Both knees. Indocin helps. Acute gastritis without mention of hemorrhage 01/17/20 07 02/07/2007 Diaphragmatic hernia 01/16/2007 023 Last Assessment & Plan: Assessment: h/o Hyperprolactinemia 10/13/2005 2 Major depressive disorder, r ecurrent episode, unspecified 08/12/2005 11/24/2014 Overview: Dr. Bustamante ([facility]) Osteoarthrosis, unspecified whether generalized or localized, unspecified site 08/12/2005 02/07/2007 documented as of this encounter (statuses as of 05/10/2023) [facility]11[facility]2019 History of Past illness Narrative* Problem Noted Date Diagnosed Date Resolved Date Obesity, Class III, BMI >= 40 01/13/2019 07/27/2022 Last Assessment & Plan: Assessment: Body mass index is 76.95 kg/m . Obesity, Class III, BMI >= 40 08/10/2017 10/20/2017 Diabetes mellitus 04/10/2012 11/24/2014 Type II or unspecified type diabetes mellitus without mention of complication, uncontrolled 01/17/2011 04/10/2012 Overview: Previously impaired fasting, converted to DM perhaps 2010 Medication side effects 10/21/200907/21 Hyperprolactinemia 05/21/2009 2 Routine general medical exam ination at a health care facility 08/18/2008 11/29/2011 Overview: 08/18/08 -- establish, from Dr. Mathews (retired) Routine gynecological examination 08/18/2008 11/29/2011 Overview: [facility], [facility] [place] Pain in joint, site unspecified 08/29/2007 07/24/2016 Unspecified gastritis and ga stroduodenitis without mention of hemorrhage 02/07/2007 07/24/2016 Localized osteoarthrosis not specified whether primary or secondary, lower leg 02/07/2007 07/24/2016 Overview: Both knees. Indocin helps. Acute gastritis without mention of hemorrhage 01/17/20 07 02/07/2007 Diaphragmatic hernia 01/16/2007 023 Last Assessment & Plan: Assessment: h/o Hyperprolactinemia 10/13/2005 2 Major depressive disorder, r ecurrent episode, unspecified 08/12/2005 11/24/2014 Overview: Dr. Bustamante ([facility]) Osteoarthrosis, unspecified whether generalized or localized, unspecified site 08/12/2005 02/07/2007 documented as of this encounter (statuses as of 05/15/2023) [facility]11[facility]2019 History of Past illness Narrative* Problem Noted Date Diagnosed Date Resolved Date Obesity, Class III, BMI >= 40 01/13/2019 07/27/2022 Last Assessment & Plan: Assessment: Body mass index is 76.95 kg/m . Obesity, Class III, BMI >= 40 08/10/2017 10/20/2017 Diabetes mellitus 04/10/2012 11/24/2014 Type II or unspecified type diabetes mellitus without mention of complication, uncontrolled 01/17/2011 04/10/2012 Overview: Previously impaired fasting, converted to DM perhaps 2010 Medication side effects 10/21/200907/21 Hyperprolactinemia 05/21/2009 2 Routine general medical exam ination at a health care facility 08/18/2008 11/29/2011 Overview: 08/18/08 -- establish, from Dr. Mathews (retired) Routine gynecological examination 08/18/2008 11/29/2011 Overview: [facility], [facility] [place] Pain in joint, site unspecified 08/29/2007 07/24/2016 Unspecified gastritis and ga stroduodenitis without mention of hemorrhage 02/07/2007 07/24/2016 Localized osteoarthrosis not specified whether primary or secondary, lower leg 02/07/2007 07/24/2016 Overview: Both knees. Indocin helps. Acute gastritis without mention of hemorrhage 01/17/20 07 02/07/2007 Diaphragmatic hernia 01/16/2007 023 Last Assessment & Plan: Assessment: h/o Hyperprolactinemia 10/13/2005 2 Major depressive disorder, r ecurrent episode, unspecified 08/12/2005 11/24/2014 Overview: Dr. Bustamante ([facility]) Osteoarthrosis, unspecified whether generalized or localized, unspecified site 08/12/2005 02/07/2007 documented as of this encounter (statuses as of 05/15/2023) [facility]11[facility]2019 History of Past illness Narrative* Problem Noted Date Diagnosed Date Resolved Date Obesity, Class III, BMI >= 40 01/13/2019 07/27/2022 Last Assessment & Plan: Assessment: Body mass index is 76.95 kg/m . Obesity, Class III, BMI >= 40 08/10/2017 10/20/2017 Diabetes mellitus 04/10/2012 11/24/2014 Type II or unspecified type diabetes mellitus without mention of complication, uncontrolled 01/17/2011 04/10/2012 Overview: Previously impaired fasting, converted to DM perhaps 2010 Medication side effects 10/21/200907/21 Hyperprolactinemia 05/21/2009 2 Routine general medical exam ination at a health care facility 08/18/2008 11/29/2011 Overview: 08/18/08 -- establish, from Dr. Mathews (retired) Routine gynecological examination 08/18/2008 11/29/2011 Overview: [facility], [facility] [place] Pain in joint, site unspecified 08/29/2007 07/24/2016 Unspecified gastritis and ga stroduodenitis without mention of hemorrhage 02/07/2007 07/24/2016 Localized osteoarthrosis not specified whether primary or secondary, lower leg 02/07/2007 07/24/2016 Overview: Both knees. Indocin helps. Acute gastritis without mention of hemorrhage 01/17/20 07 02/07/2007 Diaphragmatic hernia 01/16/2007 023 Last Assessment & Plan: Assessment: h/o Hyperprolactinemia 10/13/2005 2 Major depressive disorder, r ecurrent episode, unspecified 08/12/2005 11/24/2014 Overview: Dr. Bustamante ([facility]) Osteoarthrosis, unspecified whether generalized or localized, unspecified site 08/12/2005 02/07/2007 documented as of this encounter (statuses as of 05/30/2023) [facility]11[facility]2019 History of Past illness Narrative* Problem Noted Date Diagnosed Date Resolved Date Obesity, Class III, BMI >= 40 01/13/2019 07/27/2022 Last Assessment & Plan: Assessment: Body mass index is 76.95 kg/m . Obesity, Class III, BMI >= 40 08/10/2017 10/20/2017 Diabetes mellitus 04/10/2012 11/24/2014 Type II or unspecified type diabetes mellitus without mention of complication, uncontrolled 01/17/2011 04/10/2012 Overview: Previously impaired fasting, converted to DM perhaps 2010 Medication side effects 10/21/200907/21 Hyperprolactinemia 05/21/2009 2 Routine general medical exam ination at a health care facility 08/18/2008 11/29/2011 Overview: 08/18/08 -- establish, from Dr. Mathews (retired) Routine gynecological examination 08/18/2008 11/29/2011 Overview: [facility], [facility] [place] Pain in joint, site unspecified 08/29/2007 07/24/2016 Unspecified gastritis and ga stroduodenitis without mention of hemorrhage 02/07/2007 07/24/2016 Localized osteoarthrosis not specified whether primary or secondary, lower leg 02/07/2007 07/24/2016 Overview: Both knees. Indocin helps. Acute gastritis without mention of hemorrhage 01/17/20 07 02/07/2007 Diaphragmatic hernia 01/16/2007 023 Last Assessment & Plan: Assessment: h/o Hyperprolactinemia 10/13/2005 2 Major depressive disorder, r ecurrent episode, unspecified 08/12/2005 11/24/2014 Overview: Dr. Bustamante ([facility]) Osteoarthrosis, unspecified whether generalized or localized, unspecified site 08/12/2005 02/07/2007 documented as of this encounter (statuses as of 06/08/2023) [facility] Hospital Discharge instructions* Instructions* Tu Pierre, [employer] - 12/12/2018 Follow-up with her general surgeon. Return for fevers chills. Return for puslike discharge. A smallamount of blood like discharge is normal from site. Return to ER if incision dehisced or worsening pain. * Attachments The following attachments cannot be sent through Care Everywhere. * Pain Post-Surgery: Acute ([place]) [id number] History of Past illness Narrative* Problem Noted Date Resolved Date Obesity, Class III, BMI >= 40 08/10/2017 Diabetes mellitus 04/10/2012 11/24/2014 Type II or unspecified type diabetes mellitus without mention of complication, uncontrolled 01/17/2011 04/10/2012 Overview: Previously impaired fasting, converted to DM perhaps 2010 Medication side effects 10/21/2009 08/11/19 18 Hyperprolactinemia 05/21/2009 01/30/2012 Routine general medical exam ination at a health care facility 08/18/2008 11/29/2011 Overview: 08/18/08 -- establish, from Dr. Mathews (retired) Routine gynecological examination 08/18/2008 11/29/2011 Overview: [facility], [facility] [place] Pain in joint, site unspecified 08/29/2007 07/24/2016 Unspecified gastritis and ga stroduodenitis without mention of hemorrhage 02/07/2007 07/24/2016 Localized osteoarthrosis not specified whether primary or secondary, lower leg 02/07/2007 07/24/2016 Overview: Both knees. Indocin helps. Acute gastritis without mention of hemorrhage 02/07/2007 Hyperprolactinemia 10/13/2005 05/02/2021 Major depressive disorder, recurrent episode, un specified 08/12/2005 11/24/2014 Overview: Dr. Bustamante ([facility]) Osteoarthrosis, unspecified whether generalized or localized, unspecified site 08/12/2005 02/07/2007 documented as of this encounter (statuses as of 05/20/2021) [facility] History of Past illness Narrative* Problem Noted Date Resolved Date Obesity, Class III, BMI >= 40 08/10/2017 Diabetes mellitus 04/10/2012 11/24/2014 Type II or unspecified type diabetes mellitus without mention of complication, uncontrolled 01/17/2011 04/10/2012 Overview: Previously impaired fasting, converted to DM perhaps 2010 Medication side effects 10/21/2009 08/11/19 18 Hyperprolactinemia 05/21/2009 01/30/2012 Routine general medical exam ination at a health care facility 08/18/2008 11/29/2011 Overview: 08/18/08 -- establish, from Dr. Mathews (retired) Routine gynecological examination 08/18/2008 11/29/2011 Overview: [facility], [facility] [place] Pain in joint, site unspecified 08/29/2007 07/24/2016 Unspecified gastritis and ga stroduodenitis without mention of hemorrhage 02/07/2007 07/24/2016 Localized osteoarthrosis not specified whether primary or secondary, lower leg 02/07/2007 07/24/2016 Overview: Both knees. Indocin helps. Acute gastritis without mention of hemorrhage 02/07/2007 Hyperprolactinemia 10/13/2005 05/02/2021 Major depressive disorder, recurrent episode, un specified 08/12/2005 11/24/2014 Overview: Dr. Bustamante ([facility]) Osteoarthrosis, unspecified whether generalized or localized, unspecified site 08/12/2005 02/07/2007 documented as of this encounter (statuses as of 05/23/2021) [facility] History of Past illness Narrative* Problem Noted Date Resolved Date Obesity, Class III, BMI >= 40 08/10/2017 Diabetes mellitus 04/10/2012 11/24/2014 Type II or unspecified type diabetes mellitus without mention of complication, uncontrolled 01/17/2011 04/10/2012 Overview: Previously impaired fasting, converted to DM perhaps 2010 Medication side effects 10/21/2009 08/11/19 18 Hyperprolactinemia 05/21/2009 01/30/2012 Routine general medical exam ination at a health care facility 08/18/2008 11/29/2011 Overview: 08/18/08 -- establish, from Dr. Mathews (retired) Routine gynecological examination 08/18/2008 11/29/2011 Overview: [facility], [facility] [place] Pain in joint, site unspecified 08/29/2007 07/24/2016 Unspecified gastritis and ga stroduodenitis without mention of hemorrhage 02/07/2007 07/24/2016 Localized osteoarthrosis not specified whether primary or secondary, lower leg 02/07/2007 07/24/2016 Overview: Both knees. Indocin helps. Acute gastritis without mention of hemorrhage 02/07/2007 Hyperprolactinemia 10/13/2005 05/02/2021 Major depressive disorder, recurrent episode, un specified 08/12/2005 11/24/2014 Overview: Dr. Bustamante ([facility]) Osteoarthrosis, unspecified whether generalized or localized, unspecified site 08/12/2005 02/07/2007 documented as of this encounter (statuses as of 05/25/2021) [facility] History of Past illness Narrative* Problem Noted Date Resolved Date Obesity, Class III, BMI >= 40 08/10/2017 Diabetes mellitus 04/10/2012 11/24/2014 Type II or unspecified type diabetes mellitus without mention of complication, uncontrolled 01/17/2011 04/10/2012 Overview: Previously impaired fasting, converted to DM perhaps 2010 Medication side effects 10/21/2009 08/11/19 18 Hyperprolactinemia 05/21/2009 01/30/2012 Routine general medical exam ination at a health care facility 08/18/2008 11/29/2011 Overview: 08/18/08 -- establish, from Dr. Mathews (retired) Routine gynecological examination 08/18/2008 11/29/2011 Overview: [facility], [facility] [place] Pain in joint, site unspecified 08/29/2007 07/24/2016 Unspecified gastritis and ga stroduodenitis without mention of hemorrhage 02/07/2007 07/24/2016 Localized osteoarthrosis not specified whether primary or secondary, lower leg 02/07/2007 07/24/2016 Overview: Both knees. Indocin helps. Acute gastritis without mention of hemorrhage 02/07/2007 Hyperprolactinemia 10/13/2005 05/02/2021 Major depressive disorder, recurrent episode, un specified 08/12/2005 11/24/2014 Overview: Dr. Bustamante ([facility]) Osteoarthrosis, unspecified whether generalized or localized, unspecified site 08/12/2005 02/07/2007 documented as of this encounter (statuses as of 05/30/2021) [facility] History of Past illness Narrative* Problem Noted Date Resolved Date Obesity, Class III, BMI >= 40 08/10/2017 Diabetes mellitus 04/10/2012 11/24/2014 Type II or unspecified type diabetes mellitus without mention of complication, uncontrolled 01/17/2011 04/10/2012 Overview: Previously impaired fasting, converted to DM perhaps 2010 Medication side effects 10/21/2009 08/11/19 18 Hyperprolactinemia 05/21/2009 01/30/2012 Routine general medical exam ination at a health care facility 08/18/2008 11/29/2011 Overview: 08/18/08 -- establish, from Dr. Mathews (retired) Routine gynecological examination 08/18/2008 11/29/2011 Overview: [facility], [facility] [place] Pain in joint, site unspecified 08/29/2007 07/24/2016 Unspecified gastritis and ga stroduodenitis without mention of hemorrhage 02/07/2007 07/24/2016 Localized osteoarthrosis not specified whether primary or secondary, lower leg 02/07/2007 07/24/2016 Overview: Both knees. Indocin helps. Acute gastritis without mention of hemorrhage 02/07/2007 Hyperprolactinemia 10/13/2005 05/02/2021 Major depressive disorder, recurrent episode, un specified 08/12/2005 11/24/2014 Overview: Dr. Bustamante ([facility]) Osteoarthrosis, unspecified whether generalized or localized, unspecified site 08/12/2005 02/07/2007 documented as of this encounter (statuses as of 05/30/2021) [facility] History of Past illness Narrative* Problem Noted Date Resolved Date Obesity, Class III, BMI >= 40 08/10/2017 Diabetes mellitus 04/10/2012 11/24/2014 Type II or unspecified type diabetes mellitus without mention of complication, uncontrolled 01/17/2011 04/10/2012 Overview: Previously impaired fasting, converted to DM perhaps 2010 Medication side effects 10/21/2009 08/11/19 18 Hyperprolactinemia 05/21/2009 01/30/2012 Routine general medical exam ination at a health care facility 08/18/2008 11/29/2011 Overview: 08/18/08 -- establish, from Dr. Mathews (retired) Routine gynecological examination 08/18/2008 11/29/2011 Overview: [facility], [facility] [place] Pain in joint, site unspecified 08/29/2007 07/24/2016 Unspecified gastritis and ga stroduodenitis without mention of hemorrhage 02/07/2007 07/24/2016 Localized osteoarthrosis not specified whether primary or secondary, lower leg 02/07/2007 07/24/2016 Overview: Both knees. Indocin helps. Acute gastritis without mention of hemorrhage 02/07/2007 Hyperprolactinemia 10/13/2005 05/02/2021 Major depressive disorder, recurrent episode, un specified 08/12/2005 11/24/2014 Overview: Dr. Bustamante ([facility]) Osteoarthrosis, unspecified whether generalized or localized, unspecified site 08/12/2005 02/07/2007 documented as of this encounter (statuses as of 06/01/2021) [facility] History of Past illness Narrative* Problem Noted Date Resolved Date Obesity, Class III, BMI >= 40 08/10/2017 Diabetes mellitus 04/10/2012 11/24/2014 Type II or unspecified type diabetes mellitus without mention of complication, uncontrolled 01/17/2011 04/10/2012 Overview: Previously impaired fasting, converted to DM perhaps 2010 Medication side effects 10/21/2009 08/11/19 18 Hyperprolactinemia 05/21/2009 01/30/2012 Routine general medical exam ination at a health care facility 08/18/2008 11/29/2011 Overview: 08/18/08 -- establish, from Dr. Mathews (retired) Routine gynecological examination 08/18/2008 11/29/2011 Overview: [facility] [place] Pain in joint, site unspecified 08/29/2007 07/24/2016 Unspecified gastritis and ga stroduodenitis without mention of hemorrhage 02/07/2007 07/24/2016 Localized osteoarthrosis not specified whether primary or secondary, lower leg 02/07/2007 07/24/2016 Overview: Both knees. Indocin helps. Acute gastritis without mention of hemorrhage 02/07/2007 Hyperprolactinemia 10/13/2005 05/02/2021 Major depressive disorder, recurrent episode, un specified 08/12/2005 11/24/2014 Overview: Dr. Bustamante ([facility]) Osteoarthrosis, unspecified whether generalized or localized, unspecified site 08/12/2005 02/07/2007 documented as of this encounter (statuses as of 06/08/2021) [facility] History of Past illness Narrative* Problem Noted Date Resolved Date Obesity, Class III, BMI >= 40 08/10/2017 Diabetes mellitus 04/10/2012 11/24/2014 Type II or unspecified type diabetes mellitus without mention of complication, uncontrolled 01/17/2011 04/10/2012 Overview: Previously impaired fasting, converted to DM perhaps 2010 Medication side effects 10/21/2009 08/11/19 18 Hyperprolactinemia 05/21/2009 01/30/2012 Routine general medical exam ination at a health care facility 08/18/2008 11/29/2011 Overview: 08/18/08 -- establish, from Dr. Mathews (retired) Routine gynecological examination 08/18/2008 11/29/2011 Overview: [facility], [facility] [place] Pain in joint, site unspecified 08/29/2007 07/24/2016 Unspecified gastritis and ga stroduodenitis without mention of hemorrhage 02/07/2007 07/24/2016 Localized osteoarthrosis not specified whether primary or secondary, lower leg 02/07/2007 07/24/2016 Overview: Both knees. Indocin helps. Acute gastritis without mention of hemorrhage 02/07/2007 Hyperprolactinemia 10/13/2005 05/02/2021 Major depressive disorder, recurrent episode, un specified 08/12/2005 11/24/2014 Overview: Dr. Bustamante ([facility]) Osteoarthrosis, unspecified whether generalized or localized, unspecified site 08/12/2005 02/07/2007 documented as of this encounter (statuses as of 06/13/2021) [facility] History of Past illness Narrative* Problem Noted Date Resolved Date Obesity, Class III, BMI >= 40 08/10/2017 Diabetes mellitus 04/10/2012 11/24/2014 Type II or unspecified type diabetes mellitus without mention of complication, uncontrolled 01/17/2011 04/10/2012 Overview: Previously impaired fasting, converted to DM perhaps 2010 Medication side effects 10/21/2009 08/11/19 18 Hyperprolactinemia 05/21/2009 01/30/2012 Routine general medical exam ination at a health care facility 08/18/2008 11/29/2011 Overview: 08/18/08 -- establish, from Dr. Mathews (retired) Routine gynecological examination 08/18/2008 11/29/2011 Overview: [facility], [facility] [place] Pain in joint, site unspecified 08/29/2007 07/24/2016 Unspecified gastritis and ga stroduodenitis without mention of hemorrhage 02/07/2007 07/24/2016 Localized osteoarthrosis not specified whether primary or secondary, lower leg 02/07/2007 07/24/2016 Overview: Both knees. Indocin helps. Acute gastritis without mention of hemorrhage 02/07/2007 Hyperprolactinemia 10/13/2005 05/02/2021 Major depressive disorder, recurrent episode, un specified 08/12/2005 11/24/2014 Overview: Dr. Bustamante ([facility]) Osteoarthrosis, unspecified whether generalized or localized, unspecified site 08/12/2005 02/07/2007 documented as of this encounter (statuses as of 06/15/2021) [facility] History of Past illness Narrative* Problem Noted Date Resolved Date Obesity, Class III, BMI >= 40 08/10/2017 Diabetes mellitus 04/10/2012 11/24/2014 Type II or unspecified type diabetes mellitus without mention of complication, uncontrolled 01/17/2011 04/10/2012 Overview: Previously impaired fasting, converted to DM perhaps 2010 Medication side effects 10/21/2009 08/11/19 18 Hyperprolactinemia 05/21/2009 01/30/2012 Routine general medical exam ination at a health care facility 08/18/2008 11/29/2011 Overview: 08/18/08 -- establish, from Dr. Mathews (retired) Routine gynecological examination 08/18/2008 11/29/2011 Overview: [facility], [facility] [place] Pain in joint, site unspecified 08/29/2007 07/24/2016 Unspecified gastritis and ga stroduodenitis without mention of hemorrhage 02/07/2007 07/24/2016 Localized osteoarthrosis not specified whether primary or secondary, lower leg 02/07/2007 07/24/2016 Overview: Both knees. Indocin helps. Acute gastritis without mention of hemorrhage 02/07/2007 Hyperprolactinemia 10/13/2005 05/02/2021 Major depressive disorder, recurrent episode, un specified 08/12/2005 11/24/2014 Overview: Dr. Bustamante ([facility]) Osteoarthrosis, unspecified whether generalized or localized, unspecified site 08/12/2005 02/07/2007 documented as of this encounter (statuses as of 06/16/2021) [facility] History of Past illness Narrative* Problem Noted Date Resolved Date Obesity, Class III, BMI >= 40 08/10/2017 Diabetes mellitus 04/10/2012 11/24/2014 Type II or unspecified type diabetes mellitus without mention of complication, uncontrolled 01/17/2011 04/10/2012 Overview: Previously impaired fasting, converted to DM perhaps 2010 Medication side effects 10/21/2009 08/11/19 18 Hyperprolactinemia 05/21/2009 01/30/2012 Routine general medical exam ination at a health care facility 08/18/2008 11/29/2011 Overview: 08/18/08 -- establish, from Dr. Mathews (retired) Routine gynecological examination 08/18/2008 11/29/2011 Overview: [facility] [place] Pain in joint, site unspecified 08/29/2007 07/24/2016 Unspecified gastritis and ga stroduodenitis without mention of hemorrhage 02/07/2007 07/24/2016 Localized osteoarthrosis not specified whether primary or secondary, lower leg 02/07/2007 07/24/2016 Overview: Both knees. Indocin helps. Acute gastritis without mention of hemorrhage 02/07/2007 Hyperprolactinemia 10/13/2005 05/02/2021 Major depressive disorder, recurrent episode, un specified 08/12/2005 11/24/2014 Overview: Dr. Bustamante ([facility]) Osteoarthrosis, unspecified whether generalized or localized, unspecified site 08/12/2005 02/07/2007 documented as of this encounter (statuses as of 06/21/2021) [facility] History of Past illness Narrative* Problem Noted Date Resolved Date Obesity, Class III, BMI >= 40 08/10/2017 Diabetes mellitus 04/10/2012 11/24/2014 Type II or unspecified type diabetes mellitus without mention of complication, uncontrolled 01/17/2011 04/10/2012 Overview: Previously impaired fasting, converted to DM perhaps 2010 Medication side effects 10/21/2009 08/11/19 18 Hyperprolactinemia 05/21/2009 01/30/2012 Routine general medical exam ination at a health care facility 08/18/2008 11/29/2011 Overview: 08/18/08 -- establish, from Dr. Mathews (retired) Routine gynecological examination 08/18/2008 11/29/2011 Overview: [facility] [place] Pain in joint, site unspecified 08/29/2007 07/24/2016 Unspecified gastritis and ga stroduodenitis without mention of hemorrhage 02/07/2007 07/24/2016 Localized osteoarthrosis not specified whether primary or secondary, lower leg 02/07/2007 07/24/2016 Overview: Both knees. Indocin helps. Acute gastritis without mention of hemorrhage 02/07/2007 Hyperprolactinemia 10/13/2005 05/02/2021 Major depressive disorder, recurrent episode, un specified 08/12/2005 11/24/2014 Overview: Dr. Bustamante ([facility]) Osteoarthrosis, unspecified whether generalized or localized, unspecified site 08/12/2005 02/07/2007 documented as of this encounter (statuses as of 06/27/2021) [facility] History of Past illness Narrative* Problem Noted Date Resolved Date Obesity, Class III, BMI >= 40 08/10/2017 Diabetes mellitus 04/10/2012 11/24/2014 Type II or unspecified type diabetes mellitus without mention of complication, uncontrolled 01/17/2011 04/10/2012 Overview: Previously impaired fasting, converted to DM perhaps 2010 Medication side effects 10/21/2009 08/11/19 18 Hyperprolactinemia 05/21/2009 01/30/2012 Routine general medical exam ination at a health care facility 08/18/2008 11/29/2011 Overview: 08/18/08 -- establish, from Dr. Mathews (retired) Routine gynecological examination 08/18/2008 11/29/2011 Overview: [facility], [facility] [place] Pain in joint, site unspecified 08/29/2007 07/24/2016 Unspecified gastritis and ga stroduodenitis without mention of hemorrhage 02/07/2007 07/24/2016 Localized osteoarthrosis not specified whether primary or secondary, lower leg 02/07/2007 07/24/2016 Overview: Both knees. Indocin helps. Acute gastritis without mention of hemorrhage 02/07/2007 Hyperprolactinemia 10/13/2005 05/02/2021 Major depressive disorder, recurrent episode, un specified 08/12/2005 11/24/2014 Overview: Dr. Bustamante ([facility]) Osteoarthrosis, unspecified whether generalized or localized, unspecified site 08/12/2005 02/07/2007 documented as of this encounter (statuses as of 07/07/2021) [facility] History of Past illness Narrative* Problem Noted Date Resolved Date Obesity, Class III, BMI >= 40 08/10/2017 Diabetes mellitus 04/10/2012 11/24/2014 Type II or unspecified type diabetes mellitus without mention of complication, uncontrolled 01/17/2011 04/10/2012 Overview: Previously impaired fasting, converted to DM perhaps 2010 Medication side effects 10/21/2009 08/11/19 18 Hyperprolactinemia 05/21/2009 01/30/2012 Routine general medical exam ination at a health care facility 08/18/2008 11/29/2011 Overview: 08/18/08 -- establish, from Dr. Mathews (retired) Routine gynecological examination 08/18/2008 11/29/2011 Overview: [facility] [place] Pain in joint, site unspecified 08/29/2007 07/24/2016 Unspecified gastritis and ga stroduodenitis without mention of hemorrhage 02/07/2007 07/24/2016 Localized osteoarthrosis not specified whether primary or secondary, lower leg 02/07/2007 07/24/2016 Overview: Both knees. Indocin helps. Acute gastritis without mention of hemorrhage 02/07/2007 Hyperprolactinemia 10/13/2005 05/02/2021 Major depressive disorder, recurrent episode, un specified 08/12/2005 11/24/2014 Overview: Dr. Bustamante ([facility]) Osteoarthrosis, unspecified whether generalized or localized, unspecified site 08/12/2005 02/07/2007 documented as of this encounter (statuses as of 07/08/2021) [facility] History of Past illness Narrative* Problem Noted Date Resolved Date Obesity, Class III, BMI >= 40 08/10/2017 Diabetes mellitus 04/10/2012 11/24/2014 Type II or unspecified type diabetes mellitus without mention of complication, uncontrolled 01/17/2011 04/10/2012 Overview: Previously impaired fasting, converted to DM perhaps 2010 Medication side effects 10/21/2009 08/11/19 18 Hyperprolactinemia 05/21/2009 01/30/2012 Routine general medical exam ination at a health care facility 08/18/2008 11/29/2011 Overview: 08/18/08 -- establish, from Dr. Mathews (retired) Routine gynecological examination 08/18/2008 11/29/2011 Overview: [facility], [facility] [place] Pain in joint, site unspecified 08/29/2007 07/24/2016 Unspecified gastritis and ga stroduodenitis without mention of hemorrhage 02/07/2007 07/24/2016 Localized osteoarthrosis not specified whether primary or secondary, lower leg 02/07/2007 07/24/2016 Overview: Both knees. Indocin helps. Acute gastritis without mention of hemorrhage 02/07/2007 Hyperprolactinemia 10/13/2005 05/02/2021 Major depressive disorder, recurrent episode, un specified 08/12/2005 11/24/2014 Overview: Dr. Bustamante ([facility]) Osteoarthrosis, unspecified whether generalized or localized, unspecified site 08/12/2005 02/07/2007 documented as of this encounter (statuses as of 07/13/2021) [facility] History of Past illness Narrative* Problem Noted Date Resolved Date Obesity, Class III, BMI >= 40 08/10/2017 Diabetes mellitus 04/10/2012 11/24/2014 Type II or unspecified type diabetes mellitus without mention of complication, uncontrolled 01/17/2011 04/10/2012 Overview: Previously impaired fasting, converted to DM perhaps 2010 Medication side effects 10/21/2009 08/11/19 18 Hyperprolactinemia 05/21/2009 01/30/2012 Routine general medical exam ination at a health care facility 08/18/2008 11/29/2011 Overview: 08/18/08 -- establish, from Dr. Mathews (retired) Routine gynecological examination 08/18/2008 11/29/2011 Overview: [facility], [facility] [place] Pain in joint, site unspecified 08/29/2007 07/24/2016 Unspecified gastritis and ga stroduodenitis without mention of hemorrhage 02/07/2007 07/24/2016 Localized osteoarthrosis not specified whether primary or secondary, lower leg 02/07/2007 07/24/2016 Overview: Both knees. Indocin helps. Acute gastritis without mention of hemorrhage 02/07/2007 Hyperprolactinemia 10/13/2005 05/02/2021 Major depressive disorder, recurrent episode, un specified 08/12/2005 11/24/2014 Overview: Dr. Bustamante ([facility]) Osteoarthrosis, unspecified whether generalized or localized, unspecified site 08/12/2005 02/07/2007 documented as of this encounter (statuses as of 07/14/2021) [facility] History of Past illness Narrative* Problem Noted Date Resolved Date Obesity, Class III, BMI >= 40 08/10/2017 Diabetes mellitus 04/10/2012 11/24/2014 Type II or unspecified type diabetes mellitus without mention of complication, uncontrolled 01/17/2011 04/10/2012 Overview: Previously impaired fasting, converted to DM perhaps 2010 Medication side effects 10/21/2009 08/11/19 18 Hyperprolactinemia 05/21/2009 01/30/2012 Routine general medical exam ination at a health care facility 08/18/2008 11/29/2011 Overview: 08/18/08 -- establish, from Dr. Mathews (retired) Routine gynecological examination 08/18/2008 11/29/2011 Overview: [facility], [facility] [place] Pain in joint, site unspecified 08/29/2007 07/24/2016 Unspecified gastritis and ga stroduodenitis without mention of hemorrhage 02/07/2007 07/24/2016 Localized osteoarthrosis not specified whether primary or secondary, lower leg 02/07/2007 07/24/2016 Overview: Both knees. Indocin helps. Acute gastritis without mention of hemorrhage 02/07/2007 Hyperprolactinemia 10/13/2005 05/02/2021 Major depressive disorder, recurrent episode, un specified 08/12/2005 11/24/2014 Overview: Dr. Bustamante ([facility]) Osteoarthrosis, unspecified whether generalized or localized, unspecified site 08/12/2005 02/07/2007 documented as of this encounter (statuses as of 07/19/2021) [facility] History of Past illness Narrative* Problem Noted Date Resolved Date Obesity, Class III, BMI >= 40 08/10/2017 Diabetes mellitus 04/10/2012 11/24/2014 Type II or unspecified type diabetes mellitus without mention of complication, uncontrolled 01/17/2011 04/10/2012 Overview: Previously impaired fasting, converted to DM perhaps 2010 Medication side effects 10/21/2009 08/11/19 18 Hyperprolactinemia 05/21/2009 01/30/2012 Routine general medical exam ination at a health care facility 08/18/2008 11/29/2011 Overview: 08/18/08 -- establish, from Dr. Mathews (retired) Routine gynecological examination 08/18/2008 11/29/2011 Overview: [facility], [facility] [place] Pain in joint, site unspecified 08/29/2007 07/24/2016 Unspecified gastritis and ga stroduodenitis without mention of hemorrhage 02/07/2007 07/24/2016 Localized osteoarthrosis not specified whether primary or secondary, lower leg 02/07/2007 07/24/2016 Overview: Both knees. Indocin helps. Acute gastritis without mention of hemorrhage 02/07/2007 Hyperprolactinemia 10/13/2005 05/02/2021 Major depressive disorder, recurrent episode, un specified 08/12/2005 11/24/2014 Overview: Dr. Bustamante ([facility]) Osteoarthrosis, unspecified whether generalized or localized, unspecified site 08/12/2005 02/07/2007 documented as of this encounter (statuses as of 07/20/2021) [facility] History of Past illness Narrative* Problem Noted Date Resolved Date Obesity, Class III, BMI >= 40 08/10/2017 Diabetes mellitus 04/10/2012 11/24/2014 Type II or unspecified type diabetes mellitus without mention of complication, uncontrolled 01/17/2011 04/10/2012 Overview: Previously impaired fasting, converted to DM perhaps 2010 Medication side effects 10/21/2009 08/11/19 18 Hyperprolactinemia 05/21/2009 01/30/2012 Routine general medical exam ination at a health care facility 08/18/2008 11/29/2011 Overview: 08/18/08 -- establish, from Dr. Mathews (retired) Routine gynecological examination 08/18/2008 11/29/2011 Overview: [facility] [place] Pain in joint, site unspecified 08/29/2007 07/24/2016 Unspecified gastritis and ga stroduodenitis without mention of hemorrhage 02/07/2007 07/24/2016 Localized osteoarthrosis not specified whether primary or secondary, lower leg 02/07/2007 07/24/2016 Overview: Both knees. Indocin helps. Acute gastritis without mention of hemorrhage 02/07/2007 Hyperprolactinemia 10/13/2005 05/02/2021 Major depressive disorder, recurrent episode, un specified 08/12/2005 11/24/2014 Overview: Dr. Bustamante ([facility]) Osteoarthrosis, unspecified whether generalized or localized, unspecified site 08/12/2005 02/07/2007 documented as of this encounter (statuses as of 07/24/2021) [facility] History of Past illness Narrative* Problem Noted Date Resolved Date Obesity, Class III, BMI >= 40 08/10/2017 Diabetes mellitus 04/10/2012 11/24/2014 Type II or unspecified type diabetes mellitus without mention of complication, uncontrolled 01/17/2011 04/10/2012 Overview: Previously impaired fasting, converted to DM perhaps 2010 Medication side effects 10/21/2009 08/11/19 18 Hyperprolactinemia 05/21/2009 01/30/2012 Routine general medical exam ination at a health care facility 08/18/2008 11/29/2011 Overview: 08/18/08 -- establish, from Dr. Mathews (retired) Routine gynecological examination 08/18/2008 11/29/2011 Overview: [facility], [facility] [place] Pain in joint, site unspecified 08/29/2007 07/24/2016 Unspecified gastritis and ga stroduodenitis without mention of hemorrhage 02/07/2007 07/24/2016 Localized osteoarthrosis not specified whether primary or secondary, lower leg 02/07/2007 07/24/2016 Overview: Both knees. Indocin helps. Acute gastritis without mention of hemorrhage 02/07/2007 Hyperprolactinemia 10/13/2005 05/02/2021 Major depressive disorder, recurrent episode, un specified 08/12/2005 11/24/2014 Overview: Dr. Bustamante ([facility]) Osteoarthrosis, unspecified whether generalized or localized, unspecified site 08/12/2005 02/07/2007 documented as of this encounter (statuses as of 07/25/2021) [facility] History of Past illness Narrative* Problem Noted Date Resolved Date Obesity, Class III, BMI >= 40 08/10/2017 Diabetes mellitus 04/10/2012 11/24/2014 Type II or unspecified type diabetes mellitus without mention of complication, uncontrolled 01/17/2011 04/10/2012 Overview: Previously impaired fasting, converted to DM perhaps 2010 Medication side effects 10/21/2009 08/11/19 18 Hyperprolactinemia 05/21/2009 01/30/2012 Routine general medical exam ination at a health care facility 08/18/2008 11/29/2011 Overview: 08/18/08 -- establish, from Dr. Mathews (retired) Routine gynecological examination 08/18/2008 11/29/2011 Overview: [facility], [facility] [place] Pain in joint, site unspecified 08/29/2007 07/24/2016 Unspecified gastritis and ga stroduodenitis without mention of hemorrhage 02/07/2007 07/24/2016 Localized osteoarthrosis not specified whether primary or secondary, lower leg 02/07/2007 07/24/2016 Overview: Both knees. Indocin helps. Acute gastritis without mention of hemorrhage 02/07/2007 Hyperprolactinemia 10/13/2005 05/02/2021 Major depressive disorder, recurrent episode, un specified 08/12/2005 11/24/2014 Overview: Dr. Bustamante ([facility]) Osteoarthrosis, unspecified whether generalized or localized, unspecified site 08/12/2005 02/07/2007 documented as of this encounter (statuses as of 07/25/2021) [facility] History of Past illness Narrative* Problem Noted Date Resolved Date Obesity, Class III, BMI >= 40 08/10/2017 Diabetes mellitus 04/10/2012 11/24/2014 Type II or unspecified type diabetes mellitus without mention of complication, uncontrolled 01/17/2011 04/10/2012 Overview: Previously impaired fasting, converted to DM perhaps 2010 Medication side effects 10/21/2009 08/11/19 18 Hyperprolactinemia 05/21/2009 01/30/2012 Routine general medical exam ination at a health care facility 08/18/2008 11/29/2011 Overview: 08/18/08 -- establish, from Dr. Mathews (retired) Routine gynecological examination 08/18/2008 11/29/2011 Overview: [facility], [facility] [place] Pain in joint, site unspecified 08/29/2007 07/24/2016 Unspecified gastritis and ga stroduodenitis without mention of hemorrhage 02/07/2007 07/24/2016 Localized osteoarthrosis not specified whether primary or secondary, lower leg 02/07/2007 07/24/2016 Overview: Both knees. Indocin helps. Acute gastritis without mention of hemorrhage 02/07/2007 Hyperprolactinemia 10/13/2005 05/02/2021 Major depressive disorder, recurrent episode, un specified 08/12/2005 11/24/2014 Overview: Dr. Bustamante ([facility]) Osteoarthrosis, unspecified whether generalized or localized, unspecified site 08/12/2005 02/07/2007 documented as of this encounter (statuses as of 07/26/2021) [facility] History of Past illness Narrative* Problem Noted Date Resolved Date Obesity, Class III, BMI >= 40 08/10/2017 Diabetes mellitus 04/10/2012 11/24/2014 Type II or unspecified type diabetes mellitus without mention of complication, uncontrolled 01/17/2011 04/10/2012 Overview: Previously impaired fasting, converted to DM perhaps 2010 Medication side effects 10/21/2009 08/11/19 18 Hyperprolactinemia 05/21/2009 01/30/2012 Routine general medical exam ination at a health care facility 08/18/2008 11/29/2011 Overview: 08/18/08 -- establish, from Dr. Mathews (retired) Routine gynecological examination 08/18/2008 11/29/2011 Overview: [facility], [facility] [place] Pain in joint, site unspecified 08/29/2007 07/24/2016 Unspecified gastritis and ga stroduodenitis without mention of hemorrhage 02/07/2007 07/24/2016 Localized osteoarthrosis not specified whether primary or secondary, lower leg 02/07/2007 07/24/2016 Overview: Both knees. Indocin helps. Acute gastritis without mention of hemorrhage 02/07/2007 Hyperprolactinemia 10/13/2005 05/02/2021 Major depressive disorder, recurrent episode, un specified 08/12/2005 11/24/2014 Overview: Dr. Bustamante ([facility]) Osteoarthrosis, unspecified whether generalized or localized, unspecified site 08/12/2005 02/07/2007 documented as of this encounter (statuses as of 07/27/2021) [facility] History of Past illness Narrative* Problem Noted Date Resolved Date Obesity, Class III, BMI >= 40 08/10/2017 Diabetes mellitus 04/10/2012 11/24/2014 Type II or unspecified type diabetes mellitus without mention of complication, uncontrolled 01/17/2011 04/10/2012 Overview: Previously impaired fasting, converted to DM perhaps 2010 Medication side effects 10/21/2009 08/11/19 18 Hyperprolactinemia 05/21/2009 01/30/2012 Routine general medical exam ination at a health care facility 08/18/2008 11/29/2011 Overview: 08/18/08 -- establish, from Dr. Mathews (retired) Routine gynecological examination 08/18/2008 11/29/2011 Overview: [facility], [facility] [place] Pain in joint, site unspecified 08/29/2007 07/24/2016 Unspecified gastritis and ga stroduodenitis without mention of hemorrhage 02/07/2007 07/24/2016 Localized osteoarthrosis not specified whether primary or secondary, lower leg 02/07/2007 07/24/2016 Overview: Both knees. Indocin helps. Acute gastritis without mention of hemorrhage 02/07/2007 Hyperprolactinemia 10/13/2005 05/02/2021 Major depressive disorder, recurrent episode, un specified 08/12/2005 11/24/2014 Overview: Dr. Bustamante ([facility]) Osteoarthrosis, unspecified whether generalized or localized, unspecified site 08/12/2005 02/07/2007 documented as of this encounter (statuses as of 08/16/2021) [facility] History of Past illness Narrative* Problem Noted Date Resolved Date Obesity, Class III, BMI >= 40 08/10/2017 Diabetes mellitus 04/10/2012 11/24/2014 Type II or unspecified type diabetes mellitus without mention of complication, uncontrolled 01/17/2011 04/10/2012 Overview: Previously impaired fasting, converted to DM perhaps 2010 Medication side effects 10/21/2009 08/11/19 18 Hyperprolactinemia 05/21/2009 01/30/2012 Routine general medical exam ination at a health care facility 08/18/2008 11/29/2011 Overview: 08/18/08 -- establish, from Dr. Mathews (retired) Routine gynecological examination 08/18/2008 11/29/2011 Overview: [facility], [facility] [place] Pain in joint, site unspecified 08/29/2007 07/24/2016 Unspecified gastritis and ga stroduodenitis without mention of hemorrhage 02/07/2007 07/24/2016 Localized osteoarthrosis not specified whether primary or secondary, lower leg 02/07/2007 07/24/2016 Overview: Both knees. Indocin helps. Acute gastritis without mention of hemorrhage 02/07/2007 Hyperprolactinemia 10/13/2005 05/02/2021 Major depressive disorder, recurrent episode, un specified 08/12/2005 11/24/2014 Overview: Dr. Bustamante ([facility]) Osteoarthrosis, unspecified whether generalized or localized, unspecified site 08/12/2005 02/07/2007 documented as of this encounter (statuses as of 08/29/2021) [facility] History of Past illness Narrative* Problem Noted Date Resolved Date Obesity, Class III, BMI >= 40 08/10/2017 Diabetes mellitus 04/10/2012 11/24/2014 Type II or unspecified type diabetes mellitus without mention of complication, uncontrolled 01/17/2011 04/10/2012 Overview: Previously impaired fasting, converted to DM perhaps 2010 Medication side effects 10/21/2009 08/11/19 18 Hyperprolactinemia 05/21/2009 01/30/2012 Routine general medical exam ination at a health care facility 08/18/2008 11/29/2011 Overview: 08/18/08 -- establish, from Dr. Mathews (retired) Routine gynecological examination 08/18/2008 11/29/2011 Overview: [facility], [facility] [place] Pain in joint, site unspecified 08/29/2007 07/24/2016 Unspecified gastritis and ga stroduodenitis without mention of hemorrhage 02/07/2007 07/24/2016 Localized osteoarthrosis not specified whether primary or secondary, lower leg 02/07/2007 07/24/2016 Overview: Both knees. Indocin helps. Acute gastritis without mention of hemorrhage 02/07/2007 Hyperprolactinemia 10/13/2005 05/02/2021 Major depressive disorder, recurrent episode, un specified 08/12/2005 11/24/2014 Overview: Dr. Bustamante ([facility]) Osteoarthrosis, unspecified whether generalized or localized, unspecified site 08/12/2005 02/07/2007 documented as of this encounter (statuses as of 08/31/2021) [facility] of Past illness Narrative* Problem Noted Date Resolved Date Obesity, Class III, BMI >= 40 08/10/2017 Diabetes mellitus 04/10/2012 11/24/2014 Type II or unspecified type diabetes mellitus without mention of complication, uncontrolled 01/17/2011 04/10/2012 Overview: Previously impaired fasting, converted to DM perhaps 2010 Medication side effects 10/21/2009 08/11/19 18 Hyperprolactinemia 05/21/2009 01/30/2012 Routine general medical exam ination at a health care facility 08/18/2008 11/29/2011 Overview: 08/18/08 -- establish, from Dr. Mathews (retired) Routine gynecological examination 08/18/2008 11/29/2011 Overview: [facility], [facility] [place] Pain in joint, site unspecified 08/29/2007 07/24/2016 Unspecified gastritis and ga stroduodenitis without mention of hemorrhage 02/07/2007 07/24/2016 Localized osteoarthrosis not specified whether primary or secondary, lower leg 02/07/2007 07/24/2016 Overview: Both knees. Indocin helps. Acute gastritis without mention of hemorrhage 02/07/2007 Hyperprolactinemia 10/13/2005 05/02/2021 Major depressive disorder, recurrent episode, un specified 08/12/2005 11/24/2014 Overview: Dr. Bustamante ([facility]) Osteoarthrosis, unspecified whether generalized or localized, unspecified site 08/12/2005 02/07/2007 documented as of this encounter (statuses as of 09/12/2021) [facility] of Past illness Narrative* Problem Noted Date Resolved Date Obesity, Class III, BMI >= 40 08/10/2017 Diabetes mellitus 04/10/2012 11/24/2014 Type II or unspecified type diabetes mellitus without mention of complication, uncontrolled 01/17/2011 04/10/2012 Overview: Previously impaired fasting, converted to DM perhaps 2010 Medication side effects 10/21/2009 08/11/19 18 Hyperprolactinemia 05/21/2009 01/30/2012 Routine general medical exam ination at a health care facility 08/18/2008 11/29/2011 Overview: 08/18/08 -- establish, from Dr. Mathews (retired) Routine gynecological examination 08/18/2008 11/29/2011 Overview: [facility] [place] [facility], [facility] [place] Pain in joint, site unspecified 08/29/2007 07/24/2016 Unspecified gastritis and ga stroduodenitis without mention of hemorrhage 02/07/2007 07/24/2016 Localized osteoarthrosis not specified whether primary or secondary, lower leg 02/07/2007 07/24/2016 Overview: Both knees. Indocin helps. Acute gastritis without mention of hemorrhage 02/07/2007 Hyperprolactinemia 10/13/2005 05/02/2021 Major depressive disorder, recurrent episode, un specified 08/12/2005 11/24/2014 Overview: Dr. Bustamante ([facility]) Osteoarthrosis, unspecified whether generalized or localized, unspecified site 08/12/2005 02/07/2007 documented as of this encounter (statuses as of 09/13/2021) [facility] History of Past illness Narrative* Problem Noted Date Resolved Date Obesity, Class III, BMI >= 40 08/10/2017 Diabetes mellitus 04/10/2012 11/24/2014 Type II or unspecified type diabetes mellitus without mention of complication, uncontrolled 01/17/2011 04/10/2012 Overview: Previously impaired fasting, converted to DM perhaps 2010 Medication side effects 10/21/2009 08/11/19 18 Hyperprolactinemia 05/21/2009 01/30/2012 Routine general medical exam ination at a health care facility 08/18/2008 11/29/2011 Overview: 08/18/08 -- establish, from Dr. Mathews (retired) Routine gynecological examination 08/18/2008 11/29/2011 Overview: [facility] [place] [facility], [facility] [place] Pain in joint, site unspecified 08/29/2007 07/24/2016 Unspecified gastritis and ga stroduodenitis without mention of hemorrhage 02/07/2007 07/24/2016 Localized osteoarthrosis not specified whether primary or secondary, lower leg 02/07/2007 07/24/2016 Overview: Both knees. Indocin helps. Acute gastritis without mention of hemorrhage 02/07/2007 Hyperprolactinemia 10/13/2005 05/02/2021 Major depressive disorder, recurrent episode, un specified 08/12/2005 11/24/2014 Overview: Dr. Bustamante ([facility]) Osteoarthrosis, unspecified whether generalized or localized, unspecified site 08/12/2005 02/07/2007 documented as of this encounter (statuses as of 09/21/2021) [facility] History of Past illness Narrative* Problem Noted Date Resolved Date Obesity, Class III, BMI >= 40 08/10/2017 Diabetes mellitus 04/10/2012 11/24/2014 Type II or unspecified type diabetes mellitus without mention of complication, uncontrolled 01/17/2011 04/10/2012 Overview: Previously impaired fasting, converted to DM perhaps 2010 Medication side effects 10/21/2009 08/11/19 18 Hyperprolactinemia 05/21/2009 01/30/2012 Routine general medical exam ination at a health care facility 08/18/2008 11/29/2011 Overview: 08/18/08 -- establish, from Dr. Mathews (retired) Routine gynecological examination 08/18/2008 11/29/2011 Overview: [facility], [facility] [place] Pain in joint, site unspecified 08/29/2007 07/24/2016 Unspecified gastritis and ga stroduodenitis without mention of hemorrhage 02/07/2007 07/24/2016 Localized osteoarthrosis not specified whether primary or secondary, lower leg 02/07/2007 07/24/2016 Overview: Both knees. Indocin helps. Acute gastritis without mention of hemorrhage 02/07/2007 Hyperprolactinemia 10/13/2005 05/02/2021 Major depressive disorder, recurrent episode, un specified 08/12/2005 11/24/2014 Overview: Dr. Bustamante ([facility]) Osteoarthrosis, unspecified whether generalized or localized, unspecified site 08/12/2005 02/07/2007 documented as of this encounter (statuses as of 09/27/2021) [facility] History of Past illness Narrative* Problem Noted Date Resolved Date Obesity, Class III, BMI >= 40 08/10/2017 Diabetes mellitus 04/10/2012 11/24/2014 Type II or unspecified type diabetes mellitus without mention of complication, uncontrolled 01/17/2011 04/10/2012 Overview: Previously impaired fasting, converted to DM perhaps 2010 Medication side effects 10/21/2009 08/11/19 18 Hyperprolactinemia 05/21/2009 01/30/2012 Routine general medical exam ination at a health care facility 08/18/2008 11/29/2011 Overview: 08/18/08 -- establish, from Dr. Mathews (retired) Routine gynecological examination 08/18/2008 11/29/2011 Overview: [facility] [place] Pain in joint, site unspecified 08/29/2007 07/24/2016 Unspecified gastritis and ga stroduodenitis without mention of hemorrhage 02/07/2007 07/24/2016 Localized osteoarthrosis not specified whether primary or secondary, lower leg 02/07/2007 07/24/2016 Overview: Both knees. Indocin helps. Acute gastritis without mention of hemorrhage 02/07/2007 Hyperprolactinemia 10/13/2005 05/02/2021 Major depressive disorder, recurrent episode, un specified 08/12/2005 11/24/2014 Overview: Dr. Bustamante ([facility]) Osteoarthrosis, unspecified whether generalized or localized, unspecified site 08/12/2005 02/07/2007 documented as of this encounter (statuses as of 09/30/2021) [facility] History of Past illness Narrative* Problem Noted Date Resolved Date Obesity, Class III, BMI >= 40 08/10/2017 Diabetes mellitus 04/10/2012 11/24/2014 Type II or unspecified type diabetes mellitus without mention of complication, uncontrolled 01/17/2011 04/10/2012 Overview: Previously impaired fasting, converted to DM perhaps 2010 Medication side effects 10/21/2009 08/11/19 18 Hyperprolactinemia 05/21/2009 01/30/2012 Routine general medical exam ination at a health care facility 08/18/2008 11/29/2011 Overview: 08/18/08 -- establish, from Dr. Mathews (retired) Routine gynecological examination 08/18/2008 11/29/2011 Overview: [facility], [facility] [place] Pain in joint, site unspecified 08/29/2007 07/24/2016 Unspecified gastritis and ga stroduodenitis without mention of hemorrhage 02/07/2007 07/24/2016 Localized osteoarthrosis not specified whether primary or secondary, lower leg 02/07/2007 07/24/2016 Overview: Both knees. Indocin helps. Acute gastritis without mention of hemorrhage 02/07/2007 Hyperprolactinemia 10/13/2005 05/02/2021 Major depressive disorder, recurrent episode, un specified 08/12/2005 11/24/2014 Overview: Dr. Bustamante ([facility]) Osteoarthrosis, unspecified whether generalized or localized, unspecified site 08/12/2005 02/07/2007 documented as of this encounter (statuses as of 10/03/2021) [facility] History of Past illness Narrative* Problem Noted Date Resolved Date Obesity, Class III, BMI >= 40 08/10/2017 Diabetes mellitus 04/10/2012 11/24/2014 Type II or unspecified type diabetes mellitus without mention of complication, uncontrolled 01/17/2011 04/10/2012 Overview: Previously impaired fasting, converted to DM perhaps 2010 Medication side effects 10/21/2009 08/11/19 18 Hyperprolactinemia 05/21/2009 01/30/2012 Routine general medical exam ination at a health care facility 08/18/2008 11/29/2011 Overview: 08/18/08 -- establish, from Dr. Mathews (retired) Routine gynecological examination 08/18/2008 11/29/2011 Overview: [facility], [facility] [place] Pain in joint, site unspecified 08/29/2007 07/24/2016 Unspecified gastritis and ga stroduodenitis without mention of hemorrhage 02/07/2007 07/24/2016 Localized osteoarthrosis not specified whether primary or secondary, lower leg 02/07/2007 07/24/2016 Overview: Both knees. Indocin helps. Acute gastritis without mention of hemorrhage 02/07/2007 Hyperprolactinemia 10/13/2005 05/02/2021 Major depressive disorder, recurrent episode, un specified 08/12/2005 11/24/2014 Overview: Dr. Bustamante ([facility]) Osteoarthrosis, unspecified whether generalized or localized, unspecified site 08/12/2005 02/07/2007 documented as of this encounter (statuses as of 10/03/2021) [facility] History of Past illness Narrative* Problem Noted Date Resolved Date Obesity, Class III, BMI >= 40 08/10/2017 Diabetes mellitus 04/10/2012 11/24/2014 Type II or unspecified type diabetes mellitus without mention of complication, uncontrolled 01/17/2011 04/10/2012 Overview: Previously impaired fasting, converted to DM perhaps 2010 Medication side effects 10/21/2009 08/11/19 18 Hyperprolactinemia 05/21/2009 01/30/2012 Routine general medical exam ination at a health care facility 08/18/2008 11/29/2011 Overview: 08/18/08 -- establish, from Dr. Mathews (retired) Routine gynecological examination 08/18/2008 11/29/2011 Overview: [facility] [place] Pain in joint, site unspecified 08/29/2007 07/24/2016 Unspecified gastritis and ga stroduodenitis without mention of hemorrhage 02/07/2007 07/24/2016 Localized osteoarthrosis not specified whether primary or secondary, lower leg 02/07/2007 07/24/2016 Overview: Both knees. Indocin helps. Acute gastritis without mention of hemorrhage 02/07/2007 Hyperprolactinemia 10/13/2005 05/02/2021 Major depressive disorder, recurrent episode, un specified 08/12/2005 11/24/2014 Overview: Dr. Bustamante ([facility]) Osteoarthrosis, unspecified whether generalized or localized, unspecified site 08/12/2005 02/07/2007 documented as of this encounter (statuses as of 10/10/2021) [facility] History of Past illness Narrative* Problem Noted Date Resolved Date Obesity, Class III, BMI >= 40 08/10/2017 Diabetes mellitus 04/10/2012 11/24/2014 Type II or unspecified type diabetes mellitus without mention of complication, uncontrolled 01/17/2011 04/10/2012 Overview: Previously impaired fasting, converted to DM perhaps 2010 Medication side effects 10/21/2009 08/11/19 18 Hyperprolactinemia 05/21/2009 01/30/2012 Routine general medical exam ination at a health care facility 08/18/2008 11/29/2011 Overview: 08/18/08 -- establish, from Dr. Mathews (retired) Routine gynecological examination 08/18/2008 11/29/2011 Overview: [facility], [facility] [place] Pain in joint, site unspecified 08/29/2007 07/24/2016 Unspecified gastritis and ga stroduodenitis without mention of hemorrhage 02/07/2007 07/24/2016 Localized osteoarthrosis not specified whether primary or secondary, lower leg 02/07/2007 07/24/2016 Overview: Both knees. Indocin helps. Acute gastritis without mention of hemorrhage 02/07/2007 Hyperprolactinemia 10/13/2005 05/02/2021 Major depressive disorder, recurrent episode, un specified 08/12/2005 11/24/2014 Overview: Dr. Bustamante ([facility]) Osteoarthrosis, unspecified whether generalized or localized, unspecified site 08/12/2005 02/07/2007 documented as of this encounter (statuses as of 10/12/2021) [facility] History of Past illness Narrative* Problem Noted Date Resolved Date Obesity, Class III, BMI >= 40 08/10/2017 Diabetes mellitus 04/10/2012 11/24/2014 Type II or unspecified type diabetes mellitus without mention of complication, uncontrolled 01/17/2011 04/10/2012 Overview: Previously impaired fasting, converted to DM perhaps 2010 Medication side effects 10/21/2009 08/11/19 18 Hyperprolactinemia 05/21/2009 01/30/2012 Routine general medical exam ination at a health care facility 08/18/2008 11/29/2011 Overview: 08/18/08 -- establish, from Dr. Mathews (retired) Routine gynecological examination 08/18/2008 11/29/2011 Overview: [facility] [place] Pain in joint, site unspecified 08/29/2007 07/24/2016 Unspecified gastritis and ga stroduodenitis without mention of hemorrhage 02/07/2007 07/24/2016 Localized osteoarthrosis not specified whether primary or secondary, lower leg 02/07/2007 07/24/2016 Overview: Both knees. Indocin helps. Acute gastritis without mention of hemorrhage 02/07/2007 Hyperprolactinemia 10/13/2005 05/02/2021 Major depressive disorder, recurrent episode, un specified 08/12/2005 11/24/2014 Overview: Dr. Bustamante ([facility]) Osteoarthrosis, unspecified whether generalized or localized, unspecified site 08/12/2005 02/07/2007 documented as of this encounter (statuses as of 10/14/2021) [facility] History of Past illness Narrative* Problem Noted Date Resolved Date Obesity, Class III, BMI >= 40 08/10/2017 Diabetes mellitus 04/10/2012 11/24/2014 Type II or unspecified type diabetes mellitus without mention of complication, uncontrolled 01/17/2011 04/10/2012 Overview: Previously impaired fasting, converted to DM perhaps 2010 Medication side effects 10/21/2009 08/11/19 18 Hyperprolactinemia 05/21/2009 01/30/2012 Routine general medical exam ination at a health care facility 08/18/2008 11/29/2011 Overview: 08/18/08 -- establish, from Dr. Mathews (retired) Routine gynecological examination 08/18/2008 11/29/2011 Overview: [facility], [facility] [place] Pain in joint, site unspecified 08/29/2007 07/24/2016 Unspecified gastritis and ga stroduodenitis without mention of hemorrhage 02/07/2007 07/24/2016 Localized osteoarthrosis not specified whether primary or secondary, lower leg 02/07/2007 07/24/2016 Overview: Both knees. Indocin helps. Acute gastritis without mention of hemorrhage 02/07/2007 Hyperprolactinemia 10/13/2005 05/02/2021 Major depressive disorder, recurrent episode, un specified 08/12/2005 11/24/2014 Overview: Dr. Bustamante ([facility]) Osteoarthrosis, unspecified whether generalized or localized, unspecified site 08/12/2005 02/07/2007 documented as of this encounter (statuses as of 10/17/2021) [facility] History of Past illness Narrative* Problem Noted Date Resolved Date Obesity, Class III, BMI >= 40 08/10/2017 Diabetes mellitus 04/10/2012 11/24/2014 Type II or unspecified type diabetes mellitus without mention of complication, uncontrolled 01/17/2011 04/10/2012 Overview: Previously impaired fasting, converted to DM perhaps 2010 Medication side effects 10/21/2009 08/11/19 18 Hyperprolactinemia 05/21/2009 01/30/2012 Routine general medical exam ination at a health care facility 08/18/2008 11/29/2011 Overview: 08/18/08 -- establish, from Dr. Mathews (retired) Routine gynecological examination 08/18/2008 11/29/2011 Overview: [facility], [facility] [place] Pain in joint, site unspecified 08/29/2007 07/24/2016 Unspecified gastritis and ga stroduodenitis without mention of hemorrhage 02/07/2007 07/24/2016 Localized osteoarthrosis not specified whether primary or secondary, lower leg 02/07/2007 07/24/2016 Overview: Both knees. Indocin helps. Acute gastritis without mention of hemorrhage 02/07/2007 Hyperprolactinemia 10/13/2005 05/02/2021 Major depressive disorder, recurrent episode, un specified 08/12/2005 11/24/2014 Overview: Dr. Bustamante ([facility]) Osteoarthrosis, unspecified whether generalized or localized, unspecified site 08/12/2005 02/07/2007 documented as of this encounter (statuses as of 10/20/2021) [facility] History of Past illness Narrative* Problem Noted Date Resolved Date Obesity, Class III, BMI >= 40 08/10/2017 Diabetes mellitus 04/10/2012 11/24/2014 Type II or unspecified type diabetes mellitus without mention of complication, uncontrolled 01/17/2011 04/10/2012 Overview: Previously impaired fasting, converted to DM perhaps 2010 Medication side effects 10/21/2009 08/11/19 18 Hyperprolactinemia 05/21/2009 01/30/2012 Routine general medical exam ination at a health care facility 08/18/2008 11/29/2011 Overview: 08/18/08 -- establish, from Dr. Mathews (retired) Routine gynecological examination 08/18/2008 11/29/2011 Overview: [facility], [facility] [place] Pain in joint, site unspecified 08/29/2007 07/24/2016 Unspecified gastritis and ga stroduodenitis without mention of hemorrhage 02/07/2007 07/24/2016 Localized osteoarthrosis not specified whether primary or secondary, lower leg 02/07/2007 07/24/2016 Overview: Both knees. Indocin helps. Acute gastritis without mention of hemorrhage 02/07/2007 Hyperprolactinemia 10/13/2005 05/02/2021 Major depressive disorder, recurrent episode, un specified 08/12/2005 11/24/2014 Overview: Dr. Bustamante ([facility]) Osteoarthrosis, unspecified whether generalized or localized, unspecified site 08/12/2005 02/07/2007 documented as of this encounter (statuses as of 10/21/2021) [facility] History of Past illness Narrative* Problem Noted Date Resolved Date Obesity, Class III, BMI >= 40 08/10/2017 Diabetes mellitus 04/10/2012 11/24/2014 Type II or unspecified type diabetes mellitus without mention of complication, uncontrolled 01/17/2011 04/10/2012 Overview: Previously impaired fasting, converted to DM perhaps 2010 Medication side effects 10/21/2009 08/11/19 18 Hyperprolactinemia 05/21/2009 01/30/2012 Routine general medical exam ination at a health care facility 08/18/2008 11/29/2011 Overview: 08/18/08 -- establish, from Dr. Mathews (retired) Routine gynecological examination 08/18/2008 11/29/2011 Overview: [facility], [facility] [place] Pain in joint, site unspecified 08/29/2007 07/24/2016 Unspecified gastritis and ga stroduodenitis without mention of hemorrhage 02/07/2007 07/24/2016 Localized osteoarthrosis not specified whether primary or secondary, lower leg 02/07/2007 07/24/2016 Overview: Both knees. Indocin helps. Acute gastritis without mention of hemorrhage 02/07/2007 Hyperprolactinemia 10/13/2005 05/02/2021 Major depressive disorder, recurrent episode, un specified 08/12/2005 11/24/2014 Overview: Dr. Bustamante ([facility]) Osteoarthrosis, unspecified whether generalized or localized, unspecified site 08/12/2005 02/07/2007 documented as of this encounter (statuses as of 10/27/2021) [facility] History of Past illness Narrative* Problem Noted Date Resolved Date Obesity, Class III, BMI >= 40 08/10/2017 Diabetes mellitus 04/10/2012 11/24/2014 Type II or unspecified type diabetes mellitus without mention of complication, uncontrolled 01/17/2011 04/10/2012 Overview: Previously impaired fasting, converted to DM perhaps 2010 Medication side effects 10/21/2009 08/11/19 18 Hyperprolactinemia 05/21/2009 01/30/2012 Routine general medical exam ination at a health care facility 08/18/2008 11/29/2011 Overview: 08/18/08 -- establish, from Dr. Mathews (retired) Routine gynecological examination 08/18/2008 11/29/2011 Overview: [facility] [place] Pain in joint, site unspecified 08/29/2007 07/24/2016 Unspecified gastritis and ga stroduodenitis without mention of hemorrhage 02/07/2007 07/24/2016 Localized osteoarthrosis not specified whether primary or secondary, lower leg 02/07/2007 07/24/2016 Overview: Both knees. Indocin helps. Acute gastritis without mention of hemorrhage 02/07/2007 Hyperprolactinemia 10/13/2005 05/02/2021 Major depressive disorder, recurrent episode, un specified 08/12/2005 11/24/2014 Overview: Dr. Bustamante ([facility]) Osteoarthrosis, unspecified whether generalized or localized, unspecified site 08/12/2005 02/07/2007 documented as of this encounter (statuses as of 10/28/2021) [facility] History of Past illness Narrative* Problem Noted Date Resolved Date Obesity, Class III, BMI >= 40 08/10/2017 Diabetes mellitus 04/10/2012 11/24/2014 Type II or unspecified type diabetes mellitus without mention of complication, uncontrolled 01/17/2011 04/10/2012 Overview: Previously impaired fasting, converted to DM perhaps 2010 Medication side effects 10/21/2009 08/11/19 18 Hyperprolactinemia 05/21/2009 01/30/2012 Routine general medical exam ination at a health care facility 08/18/2008 11/29/2011 Overview: 08/18/08 -- establish, from Dr. Mathews (retired) Routine gynecological examination 08/18/2008 11/29/2011 Overview: [facility], [facility] [place] Pain in joint, site unspecified 08/29/2007 07/24/2016 Unspecified gastritis and ga stroduodenitis without mention of hemorrhage 02/07/2007 07/24/2016 Localized osteoarthrosis not specified whether primary or secondary, lower leg 02/07/2007 07/24/2016 Overview: Both knees. Indocin helps. Acute gastritis without mention of hemorrhage 02/07/2007 Hyperprolactinemia 10/13/2005 05/02/2021 Major depressive disorder, recurrent episode, un specified 08/12/2005 11/24/2014 Overview: Dr. Bustamante ([facility]) Osteoarthrosis, unspecified whether generalized or localized, unspecified site 08/12/2005 02/07/2007 documented as of this encounter (statuses as of 11/17/2021) [facility] History of Past illness Narrative* Problem Noted Date Resolved Date Obesity, Class III, BMI >= 40 08/10/2017 Diabetes mellitus 04/10/2012 11/24/2014 Type II or unspecified type diabetes mellitus without mention of complication, uncontrolled 01/17/2011 04/10/2012 Overview: Previously impaired fasting, converted to DM perhaps 2010 Medication side effects 10/21/2009 08/11/19 18 Hyperprolactinemia 05/21/2009 01/30/2012 Routine general medical exam ination at a health care facility 08/18/2008 11/29/2011 Overview: 08/18/08 -- establish, from Dr. Mathews (retired) Routine gynecological examination 08/18/2008 11/29/2011 Overview: [facility], [facility] [place] Pain in joint, site unspecified 08/29/2007 07/24/2016 Unspecified gastritis and ga stroduodenitis without mention of hemorrhage 02/07/2007 07/24/2016 Localized osteoarthrosis not specified whether primary or secondary, lower leg 02/07/2007 07/24/2016 Overview: Both knees. Indocin helps. Acute gastritis without mention of hemorrhage 02/07/2007 Hyperprolactinemia 10/13/2005 05/02/2021 Major depressive disorder, recurrent episode, un specified 08/12/2005 11/24/2014 Overview: Dr. Bustamante ([facility]) Osteoarthrosis, unspecified whether generalized or localized, unspecified site 08/12/2005 02/07/2007 documented as of this encounter (statuses as of 11/21/2021) [facility] of Past illness Narrative* Problem Noted Date Resolved Date Obesity, Class III, BMI >= 40 08/10/2017 Diabetes mellitus 04/10/2012 11/24/2014 Type II or unspecified type diabetes mellitus without mention of complication, uncontrolled 01/17/2011 04/10/2012 Overview: Previously impaired fasting, converted to DM perhaps 2010 Medication side effects 10/21/2009 08/11/19 18 Hyperprolactinemia 05/21/2009 01/30/2012 Routine general medical exam ination at a health care facility 08/18/2008 11/29/2011 Overview: 08/18/08 -- establish, from Dr. Mathews (retired) Routine gynecological examination 08/18/2008 11/29/2011 Overview: [facility], [facility] [place] Pain in joint, site unspecified 08/29/2007 07/24/2016 Unspecified gastritis and ga stroduodenitis without mention of hemorrhage 02/07/2007 07/24/2016 Localized osteoarthrosis not specified whether primary or secondary, lower leg 02/07/2007 07/24/2016 Overview: Both knees. Indocin helps. Acute gastritis without mention of hemorrhage 02/07/2007 Hyperprolactinemia 10/13/2005 05/02/2021 Major depressive disorder, recurrent episode, un specified 08/12/2005 11/24/2014 Overview: Dr. Bustamante ([facility]) Osteoarthrosis, unspecified whether generalized or localized, unspecified site 08/12/2005 02/07/2007 documented as of this encounter (statuses as of 11/24/2021) [facility] History of Past illness Narrative* Problem Noted Date Resolved Date Obesity, Class III, BMI >= 40 08/10/2017 Diabetes mellitus 04/10/2012 11/24/2014 Type II or unspecified type diabetes mellitus without mention of complication, uncontrolled 01/17/2011 04/10/2012 Overview: Previously impaired fasting, converted to DM perhaps 2010 Medication side effects 10/21/2009 08/11/19 18 Hyperprolactinemia 05/21/2009 01/30/2012 Routine general medical exam ination at a health care facility 08/18/2008 11/29/2011 Overview: 08/18/08 -- establish, from Dr. Mathews (retired) Routine gynecological examination 08/18/2008 11/29/2011 Overview: [facility] [place] [facility], [facility] [place] Pain in joint, site unspecified 08/29/2007 07/24/2016 Unspecified gastritis and ga stroduodenitis without mention of hemorrhage 02/07/2007 07/24/2016 Localized osteoarthrosis not specified whether primary or secondary, lower leg 02/07/2007 07/24/2016 Overview: Both knees. Indocin helps. Acute gastritis without mention of hemorrhage 02/07/2007 Hyperprolactinemia 10/13/2005 05/02/2021 Major depressive disorder, recurrent episode, un specified 08/12/2005 11/24/2014 Overview: Dr. Bustamante ([facility]) Osteoarthrosis, unspecified whether generalized or localized, unspecified site 08/12/2005 02/07/2007 documented as of this encounter (statuses as of 11/30/2021) [facility] History of Past illness Narrative* Problem Noted Date Resolved Date Obesity, Class III, BMI >= 40 08/10/2017 Diabetes mellitus 04/10/2012 11/24/2014 Type II or unspecified type diabetes mellitus without mention of complication, uncontrolled 01/17/2011 04/10/2012 Overview: Previously impaired fasting, converted to DM perhaps 2010 Medication side effects 10/21/2009 08/11/19 18 Hyperprolactinemia 05/21/2009 01/30/2012 Routine general medical exam ination at a health care facility 08/18/2008 11/29/2011 Overview: 08/18/08 -- establish, from Dr. Mathews (retired) Routine gynecological examination 08/18/2008 11/29/2011 Overview: [facility], [facility] [place] Pain in joint, site unspecified 08/29/2007 07/24/2016 Unspecified gastritis and ga stroduodenitis without mention of hemorrhage 02/07/2007 07/24/2016 Localized osteoarthrosis not specified whether primary or secondary, lower leg 02/07/2007 07/24/2016 Overview: Both knees. Indocin helps. Acute gastritis without mention of hemorrhage 02/07/2007 Hyperprolactinemia 10/13/2005 05/02/2021 Major depressive disorder, recurrent episode, un specified 08/12/2005 11/24/2014 Overview: Dr. Bustamante ([facility]) Osteoarthrosis, unspecified whether generalized or localized, unspecified site 08/12/2005 02/07/2007 documented as of this encounter (statuses as of 12/06/2021) [facility] History of Past illness Narrative* Problem Noted Date Resolved Date Obesity, Class III, BMI >= 40 08/10/2017 Diabetes mellitus 04/10/2012 11/24/2014 Type II or unspecified type diabetes mellitus without mention of complication, uncontrolled 01/17/2011 04/10/2012 Overview: Previously impaired fasting, converted to DM perhaps 2010 Medication side effects 10/21/2009 08/11/19 18 Hyperprolactinemia 05/21/2009 01/30/2012 Routine general medical exam ination at a health care facility 08/18/2008 11/29/2011 Overview: 08/18/08 -- establish, from Dr. Mathews (retired) Routine gynecological examination 08/18/2008 11/29/2011 Overview: [facility], [facility] [place] Pain in joint, site unspecified 08/29/2007 07/24/2016 Unspecified gastritis and ga stroduodenitis without mention of hemorrhage 02/07/2007 07/24/2016 Localized osteoarthrosis not specified whether primary or secondary, lower leg 02/07/2007 07/24/2016 Overview: Both knees. Indocin helps. Acute gastritis without mention of hemorrhage 02/07/2007 Hyperprolactinemia 10/13/2005 05/02/2021 Major depressive disorder, recurrent episode, un specified 08/12/2005 11/24/2014 Overview: Dr. Bustamante ([facility]) Osteoarthrosis, unspecified whether generalized or localized, unspecified site 08/12/2005 02/07/2007 documented as of this encounter (statuses as of 12/06/2021) [facility] History of Past illness Narrative* Problem Noted Date Resolved Date Obesity, Class III, BMI >= 40 08/10/2017 Diabetes mellitus 04/10/2012 11/24/2014 Type II or unspecified type diabetes mellitus without mention of complication, uncontrolled 01/17/2011 04/10/2012 Overview: Previously impaired fasting, converted to DM perhaps 2010 Medication side effects 10/21/2009 08/11/19 18 Hyperprolactinemia 05/21/2009 01/30/2012 Routine general medical exam ination at a health care facility 08/18/2008 11/29/2011 Overview: 08/18/08 -- establish, from Dr. Mathews (retired) Routine gynecological examination 08/18/2008 11/29/2011 Overview: [facility] [place] [facility], [facility] [place] Pain in joint, site unspecified 08/29/2007 07/24/2016 Unspecified gastritis and ga stroduodenitis without mention of hemorrhage 02/07/2007 07/24/2016 Localized osteoarthrosis not specified whether primary or secondary, lower leg 02/07/2007 07/24/2016 Overview: Both knees. Indocin helps. Acute gastritis without mention of hemorrhage 02/07/2007 Hyperprolactinemia 10/13/2005 05/02/2021 Major depressive disorder, recurrent episode, un specified 08/12/2005 11/24/2014 Overview: Dr. Bustamante ([facility]) Osteoarthrosis, unspecified whether generalized or localized, unspecified site 08/12/2005 02/07/2007 documented as of this encounter (statuses as of 12/20/2021) [facility] History of Past illness Narrative* Problem Noted Date Resolved Date Obesity, Class III, BMI >= 40 08/10/2017 Diabetes mellitus 04/10/2012 11/24/2014 Type II or unspecified type diabetes mellitus without mention of complication, uncontrolled 01/17/2011 04/10/2012 Overview: Previously impaired fasting, converted to DM perhaps 2010 Medication side effects 10/21/2009 08/11/19 18 Hyperprolactinemia 05/21/2009 01/30/2012 Routine general medical exam ination at a health care facility 08/18/2008 11/29/2011 Overview: 08/18/08 -- establish, from Dr. Mathews (retired) Routine gynecological examination 08/18/2008 11/29/2011 Overview: [facility], [facility] [place] Pain in joint, site unspecified 08/29/2007 07/24/2016 Unspecified gastritis and ga stroduodenitis without mention of hemorrhage 02/07/2007 07/24/2016 Localized osteoarthrosis not specified whether primary or secondary, lower leg 02/07/2007 07/24/2016 Overview: Both knees. Indocin helps. Acute gastritis without mention of hemorrhage 02/07/2007 Hyperprolactinemia 10/13/2005 05/02/2021 Major depressive disorder, recurrent episode, un specified 08/12/2005 11/24/2014 Overview: Dr. Bustamante ([facility]) Osteoarthrosis, unspecified whether generalized or localized, unspecified site 08/12/2005 02/07/2007 documented as of this encounter (statuses as of 01/10/2022) [facility] History of Past illness Narrative* Problem Noted Date Resolved Date Obesity, Class III, BMI >= 40 08/10/2017 Diabetes mellitus 04/10/2012 11/24/2014 Type II or unspecified type diabetes mellitus without mention of complication, uncontrolled 01/17/2011 04/10/2012 Overview: Previously impaired fasting, converted to DM perhaps 2010 Medication side effects 10/21/2009 08/11/19 18 Hyperprolactinemia 05/21/2009 01/30/2012 Routine general medical exam ination at a health care facility 08/18/2008 11/29/2011 Overview: 08/18/08 -- establish, from Dr. Mathews (retired) Routine gynecological examination 08/18/2008 11/29/2011 Overview: [facility], [place] Pain in joint, site unspecified 08/29/2007 07/24/2016 Unspecified gastritis and ga stroduodenitis without mention of hemorrhage 02/07/2007 07/24/2016 Localized osteoarthrosis not specified whether primary or secondary, lower leg 02/07/2007 07/24/2016 Overview: Both knees. Indocin helps. Acute gastritis without mention of hemorrhage 02/07/2007 Hyperprolactinemia 10/13/2005 05/02/2021 Major depressive disorder, recurrent episode, un specified 08/12/2005 11/24/2014 Overview: Dr. Bustamante ([facility]) Osteoarthrosis, unspecified whether generalized or localized, unspecified site 08/12/2005 02/07/2007 documented as of this encounter (statuses as of 01/11/2022) [facility] History of Past illness Narrative* Problem Noted Date Resolved Date Obesity, Class III, BMI >= 40 08/10/2017 Diabetes mellitus 04/10/2012 11/24/2014 Type II or unspecified type diabetes mellitus without mention of complication, uncontrolled 01/17/2011 04/10/2012 Overview: Previously impaired fasting, converted to DM perhaps 2010 Medication side effects 10/21/2009 08/11/19 18 Hyperprolactinemia 05/21/2009 01/30/2012 Routine general medical exam ination at a health care facility 08/18/2008 11/29/2011 Overview: 08/18/08 -- establish, from Dr. Mathews (retired) Routine gynecological examination 08/18/2008 11/29/2011 Overview: [facility] [place] Pain in joint, site unspecified 08/29/2007 07/24/2016 Unspecified gastritis and ga stroduodenitis without mention of hemorrhage 02/07/2007 07/24/2016 Localized osteoarthrosis not specified whether primary or secondary, lower leg 02/07/2007 07/24/2016 Overview: Both knees. Indocin helps. Acute gastritis without mention of hemorrhage 02/07/2007 Hyperprolactinemia 10/13/2005 05/02/2021 Major depressive disorder, recurrent episode, un specified 08/12/2005 11/24/2014 Overview: Dr. Bustamante ([facility]) Osteoarthrosis, unspecified whether generalized or localized, unspecified site 08/12/2005 02/07/2007 documented as of this encounter (statuses as of 01/19/2022) [facility] History of Past illness Narrative* Problem Noted Date Resolved Date Obesity, Class III, BMI >= 40 08/10/2017 Diabetes mellitus 04/10/2012 11/24/2014 Type II or unspecified type diabetes mellitus without mention of complication, uncontrolled 01/17/2011 04/10/2012 Overview: Previously impaired fasting, converted to DM perhaps 2010 Medication side effects 10/21/2009 08/11/19 18 Hyperprolactinemia 05/21/2009 01/30/2012 Routine general medical exam ination at a health care facility 08/18/2008 11/29/2011 Overview: 08/18/08 -- establish, from Dr. Mathews (retired) Routine gynecological examination 08/18/2008 11/29/2011 Overview: [facility], [facility] [place] Pain in joint, site unspecified 08/29/2007 07/24/2016 Unspecified gastritis and ga stroduodenitis without mention of hemorrhage 02/07/2007 07/24/2016 Localized osteoarthrosis not specified whether primary or secondary, lower leg 02/07/2007 07/24/2016 Overview: Both knees. Indocin helps. Acute gastritis without mention of hemorrhage 02/07/2007 Hyperprolactinemia 10/13/2005 05/02/2021 Major depressive disorder, recurrent episode, un specified 08/12/2005 11/24/2014 Overview: Dr. Bustamante ([facility]) Osteoarthrosis, unspecified whether generalized or localized, unspecified site 08/12/2005 02/07/2007 documented as of this encounter (statuses as of 02/06/2022) [facility] History of Past illness Narrative* Problem Noted Date Resolved Date Obesity, Class III, BMI >= 40 08/10/2017 Diabetes mellitus 04/10/2012 11/24/2014 Type II or unspecified type diabetes mellitus without mention of complication, uncontrolled 01/17/2011 04/10/2012 Overview: Previously impaired fasting, converted to DM perhaps 2010 Medication side effects 10/21/2009 08/11/19 18 Hyperprolactinemia 05/21/2009 01/30/2012 Routine general medical exam ination at a health care facility 08/18/2008 11/29/2011 Overview: 08/18/08 -- establish, from Dr. Mathews (retired) Routine gynecological examination 08/18/2008 11/29/2011 Overview: [facility], [facility] [place] Pain in joint, site unspecified 08/29/2007 07/24/2016 Unspecified gastritis and ga stroduodenitis without mention of hemorrhage 02/07/2007 07/24/2016 Localized osteoarthrosis not specified whether primary or secondary, lower leg 02/07/2007 07/24/2016 Overview: Both knees. Indocin helps. Acute gastritis without mention of hemorrhage 02/07/2007 Hyperprolactinemia 10/13/2005 05/02/2021 Major depressive disorder, recurrent episode, un specified 08/12/2005 11/24/2014 Overview: Dr. Bustamante ([facility]) Osteoarthrosis, unspecified whether generalized or localized, unspecified site 08/12/2005 02/07/2007 documented as of this encounter (statuses as of 02/22/2022) [facility] History of Past illness Narrative* Problem Noted Date Resolved Date Obesity, Class III, BMI >= 40 08/10/2017 Diabetes mellitus 04/10/2012 11/24/2014 Type II or unspecified type diabetes mellitus without mention of complication, uncontrolled 01/17/2011 04/10/2012 Overview: Previously impaired fasting, converted to DM perhaps 2010 Medication side effects 10/21/2009 08/11/19 18 Hyperprolactinemia 05/21/2009 01/30/2012 Routine general medical exam ination at a health care facility 08/18/2008 11/29/2011 Overview: 08/18/08 -- establish, from Dr. Mathews (retired) Routine gynecological examination 08/18/2008 11/29/2011 Overview: [facility] [place] [facility], [facility] [place] Pain in joint, site unspecified 08/29/2007 07/24/2016 Unspecified gastritis and ga stroduodenitis without mention of hemorrhage 02/07/2007 07/24/2016 Localized osteoarthrosis not specified whether primary or secondary, lower leg 02/07/2007 07/24/2016 Overview: Both knees. Indocin helps. Acute gastritis without mention of hemorrhage 02/07/2007 Hyperprolactinemia 10/13/2005 05/02/2021 Major depressive disorder, recurrent episode, un specified 08/12/2005 11/24/2014 Overview: Dr. Bustamante ([facility]) Osteoarthrosis, unspecified whether generalized or localized, unspecified site 08/12/2005 02/07/2007 documented as of this encounter (statuses as of 02/22/2022) [facility] History of Past illness Narrative* Problem Noted Date Resolved Date Obesity, Class III, BMI >= 40 08/10/2017 Diabetes mellitus 04/10/2012 11/24/2014 Type II or unspecified type diabetes mellitus without mention of complication, uncontrolled 01/17/2011 04/10/2012 Overview: Previously impaired fasting, converted to DM perhaps 2010 Medication side effects 10/21/2009 08/11/19 18 Hyperprolactinemia 05/21/2009 01/30/2012 Routine general medical exam ination at a health care facility 08/18/2008 11/29/2011 Overview: 08/18/08 -- establish, from Dr. Mathews (retired) Routine gynecological examination 08/18/2008 11/29/2011 Overview: [facility], [facility] [place] Pain in joint, site unspecified 08/29/2007 07/24/2016 Unspecified gastritis and ga stroduodenitis without mention of hemorrhage 02/07/2007 07/24/2016 Localized osteoarthrosis not specified whether primary or secondary, lower leg 02/07/2007 07/24/2016 Overview: Both knees. Indocin helps. Acute gastritis without mention of hemorrhage 02/07/2007 Hyperprolactinemia 10/13/2005 05/02/2021 Major depressive disorder, recurrent episode, un specified 08/12/2005 11/24/2014 Overview: Dr. Bustamante ([facility]) Osteoarthrosis, unspecified whether generalized or localized, unspecified site 08/12/2005 02/07/2007 documented as of this encounter (statuses as of 02/28/2022) [facility] History of Past illness Narrative* Problem Noted Date Resolved Date Obesity, Class III, BMI >= 40 08/10/2017 Diabetes mellitus 04/10/2012 11/24/2014 Type II or unspecified type diabetes mellitus without mention of complication, uncontrolled 01/17/2011 04/10/2012 Overview: Previously impaired fasting, converted to DM perhaps 2010 Medication side effects 10/21/2009 08/11/19 18 Hyperprolactinemia 05/21/2009 01/30/2012 Routine general medical exam ination at a health care facility 08/18/2008 11/29/2011 Overview: 08/18/08 -- establish, from Dr. Mathews (retired) Routine gynecological examination 08/18/2008 11/29/2011 Overview: [facility], [facility] [place] Pain in joint, site unspecified 08/29/2007 07/24/2016 Unspecified gastritis and ga stroduodenitis without mention of hemorrhage 02/07/2007 07/24/2016 Localized osteoarthrosis not specified whether primary or secondary, lower leg 02/07/2007 07/24/2016 Overview: Both knees. Indocin helps. Acute gastritis without mention of hemorrhage 02/07/2007 Hyperprolactinemia 10/13/2005 05/02/2021 Major depressive disorder, recurrent episode, un specified 08/12/2005 11/24/2014 Overview: Dr. Bustamante ([facility]) Osteoarthrosis, unspecified whether generalized or localized, unspecified site 08/12/2005 02/07/2007 documented as of this encounter (statuses as of 03/03/2022) [facility] History of Past illness Narrative* Problem Noted Date Resolved Date Obesity, Class III, BMI >= 40 08/10/2017 Diabetes mellitus 04/10/2012 11/24/2014 Type II or unspecified type diabetes mellitus without mention of complication, uncontrolled 01/17/2011 04/10/2012 Overview: Previously impaired fasting, converted to DM perhaps 2010 Medication side effects 10/21/2009 08/11/19 18 Hyperprolactinemia 05/21/2009 01/30/2012 Routine general medical exam ination at a health care facility 08/18/2008 11/29/2011 Overview: 08/18/08 -- establish, from Dr. Mathews (retired) Routine gynecological examination 08/18/2008 11/29/2011 Overview: [facility] [place] [facility], [facility] [place] Pain in joint, site unspecified 08/29/2007 07/24/2016 Unspecified gastritis and ga stroduodenitis without mention of hemorrhage 02/07/2007 07/24/2016 Localized osteoarthrosis not specified whether primary or secondary, lower leg 02/07/2007 07/24/2016 Overview: Both knees. Indocin helps. Acute gastritis without mention of hemorrhage 02/07/2007 Hyperprolactinemia 10/13/2005 05/02/2021 Major depressive disorder, recurrent episode, un specified 08/12/2005 11/24/2014 Overview: Dr. Bustamante ([facility]) Osteoarthrosis, unspecified whether generalized or localized, unspecified site 08/12/2005 02/07/2007 documented as of this encounter (statuses as of 03/06/2022) [facility] History of Past illness Narrative* Problem Noted Date Resolved Date Obesity, Class III, BMI >= 40 08/10/2017 Diabetes mellitus 04/10/2012 11/24/2014 Type II or unspecified type diabetes mellitus without mention of complication, uncontrolled 01/17/2011 04/10/2012 Overview: Previously impaired fasting, converted to DM perhaps 2010 Medication side effects 10/21/2009 08/11/19 Hyperprolactinemia 05/21/2009 01/30/2012 Routine general medical exam ination at a health care facility 08/18/2008 11/29/2011 Overview: 08/18/08 -- establish, from Dr. Mathews (retired) Routine gynecological examination 08/18/2008 11/29/2011 Overview: [facility] [place] Pain in joint, site unspecified 08/29/2007 07/24/2016 Unspecified gastritis and ga stroduodenitis without mention of hemorrhage 02/07/2007 07/24/2016 Localized osteoarthrosis not specified whether primary or secondary, lower leg 02/07/2007 07/24/2016 Overview: Both knees. Indocin helps. Acute gastritis without mention of hemorrhage 02/07/2007 Hyperprolactinemia 10/13/2005 05/02/2021 Major depressive disorder, recurrent episode, un specified 08/12/2005 11/24/2014 Overview: Dr. Bustamante ([facility]) Osteoarthrosis, unspecified whether generalized or localized, unspecified site 08/12/2005 02/07/2007 documented as of this encounter (statuses as of 03/06/2022) [facility] of Past illness Narrative* Problem Noted Date Resolved Date Obesity, Class III, BMI >= 40 08/10/2017 Diabetes mellitus 04/10/2012 11/24/2014 Type II or unspecified type diabetes mellitus without mention of complication, uncontrolled 01/17/2011 04/10/2012 Overview: Previously impaired fasting, converted to DM perhaps 2010 Medication side effects 10/21/2009 08/11/19 18 Hyperprolactinemia 05/21/2009 01/30/2012 Routine general medical exam ination at a health care facility 08/18/2008 11/29/2011 Overview: 08/18/08 -- establish, from Dr. Mathews (retired) Routine gynecological examination 08/18/2008 11/29/2011 Overview: [facility] [place] [facility], [facility] [place] Pain in joint, site unspecified 08/29/2007 07/24/2016 Unspecified gastritis and ga stroduodenitis without mention of hemorrhage 02/07/2007 07/24/2016 Localized osteoarthrosis not specified whether primary or secondary, lower leg 02/07/2007 07/24/2016 Overview: Both knees. Indocin helps. Acute gastritis without mention of hemorrhage 02/07/2007 Hyperprolactinemia 10/13/2005 05/02/2021 Major depressive disorder, recurrent episode, un specified 08/12/2005 11/24/2014 Overview: Dr. Bustamante ([facility]) Osteoarthrosis, unspecified whether generalized or localized, unspecified site 08/12/2005 02/07/2007 documented as of this encounter (statuses as of 03/07/2022) [facility] History of Past illness Narrative* Problem Noted Date Resolved Date Obesity, Class III, BMI >= 40 08/10/2017 Diabetes mellitus 04/10/2012 11/24/2014 Type II or unspecified type diabetes mellitus without mention of complication, uncontrolled 01/17/2011 04/10/2012 Overview: Previously impaired fasting, converted to DM perhaps 2010 Medication side effects 10/21/2009 08/11/19 18 Hyperprolactinemia 05/21/2009 01/30/2012 Routine general medical exam ination at a health care facility 08/18/2008 11/29/2011 Overview: 08/18/08 -- establish, from Dr. Mathews (retired) Routine gynecological examination 08/18/2008 11/29/2011 Overview: [facility], [facility] [place] Pain in joint, site unspecified 08/29/2007 07/24/2016 Unspecified gastritis and ga stroduodenitis without mention of hemorrhage 02/07/2007 07/24/2016 Localized osteoarthrosis not specified whether primary or secondary, lower leg 02/07/2007 07/24/2016 Overview: Both knees. Indocin helps. Acute gastritis without mention of hemorrhage 02/07/2007 Hyperprolactinemia 10/13/2005 05/02/2021 Major depressive disorder, recurrent episode, un specified 08/12/2005 11/24/2014 Overview: Dr. Bustamante ([facility]) Osteoarthrosis, unspecified whether generalized or localized, unspecified site 08/12/2005 02/07/2007 documented as of this encounter (statuses as of 03/09/2022) [facility] History of Past illness Narrative* Problem Noted Date Resolved Date Obesity, Class III, BMI >= 40 08/10/2017 Diabetes mellitus 04/10/2012 11/24/2014 Type II or unspecified type diabetes mellitus without mention of complication, uncontrolled 01/17/2011 04/10/2012 Overview: Previously impaired fasting, converted to DM perhaps 2010 Medication side effects 10/21/2009 08/11/19 18 Hyperprolactinemia 05/21/2009 01/30/2012 Routine general medical exam ination at a health care facility 08/18/2008 11/29/2011 Overview: 08/18/08 -- establish, from Dr. Mathews (retired) Routine gynecological examination 08/18/2008 11/29/2011 Overview: [facility] [place] Pain in joint, site unspecified 08/29/2007 07/24/2016 Unspecified gastritis and ga stroduodenitis without mention of hemorrhage 02/07/2007 07/24/2016 Localized osteoarthrosis not specified whether primary or secondary, lower leg 02/07/2007 07/24/2016 Overview: Both knees. Indocin helps. Acute gastritis without mention of hemorrhage 02/07/2007 Hyperprolactinemia 10/13/2005 05/02/2021 Major depressive disorder, recurrent episode, un specified 08/12/2005 11/24/2014 Overview: Dr. Bustamante ([facility]) Osteoarthrosis, unspecified whether generalized or localized, unspecified site 08/12/2005 02/07/2007 documented as of this encounter (statuses as of 03/09/2022) [facility]2018 History of Past illness Narrative* Problem Noted Date Resolved Date Obesity, Class III, BMI >= 40 08/10/2017 Diabetes mellitus 04/10/2012 11/24/2014 Type II or unspecified type diabetes mellitus without mention of complication, uncontrolled 01/17/2011 04/10/2012 Overview: Previously impaired fasting, converted to DM perhaps 2010 Medication side effects 10/21/2009 08/11/19 18 Hyperprolactinemia 05/21/2009 01/30/2012 Routine general medical exam ination at a health care facility 08/18/2008 11/29/2011 Overview: 08/18/08 -- establish, from Dr. Mathews (retired) Routine gynecological examination 08/18/2008 11/29/2011 Overview: [facility] [place] [facility], [facility] [place] Pain in joint, site unspecified 08/29/2007 07/24/2016 Unspecified gastritis and ga stroduodenitis without mention of hemorrhage 02/07/2007 07/24/2016 Localized osteoarthrosis not specified whether primary or secondary, lower leg 02/07/2007 07/24/2016 Overview: Both knees. Indocin helps. Acute gastritis without mention of hemorrhage 02/07/2007 Hyperprolactinemia 10/13/2005 05/02/2021 Major depressive disorder, recurrent episode, un specified 08/12/2005 11/24/2014 Overview: Dr. Bustamante ([facility]) Osteoarthrosis, unspecified whether generalized or localized, unspecified site 08/12/2005 02/07/2007 documented as of this encounter (statuses as of 03/20/2022) [facility] History of Past illness Narrative* Problem Noted Date Resolved Date Obesity, Class III, BMI >= 40 08/10/2017 Diabetes mellitus 04/10/2012 11/24/2014 Type II or unspecified type diabetes mellitus without mention of complication, uncontrolled 01/17/2011 04/10/2012 Overview: Previously impaired fasting, converted to DM perhaps 2010 Medication side effects 10/21/2009 08/11/19 18 Hyperprolactinemia 05/21/2009 01/30/2012 Routine general medical exam ination at a health care facility 08/18/2008 11/29/2011 Overview: 08/18/08 -- establish, from Dr. Mathews (retired) Routine gynecological examination 08/18/2008 11/29/2011 Overview: [facility] [place] [facility], [facility] [place] Pain in joint, site unspecified 08/29/2007 07/24/2016 Unspecified gastritis and ga stroduodenitis without mention of hemorrhage 02/07/2007 07/24/2016 Localized osteoarthrosis not specified whether primary or secondary, lower leg 02/07/2007 07/24/2016 Overview: Both knees. Indocin helps. Acute gastritis without mention of hemorrhage 02/07/2007 Hyperprolactinemia 10/13/2005 05/02/2021 Major depressive disorder, recurrent episode, un specified 08/12/2005 11/24/2014 Overview: Dr. Bustamante ([facility]) Osteoarthrosis, unspecified whether generalized or localized, unspecified site 08/12/2005 02/07/2007 documented as of this encounter (statuses as of 03/25/2022) [facility] History of Past illness Narrative* Problem Noted Date Resolved Date Obesity, Class III, BMI >= 40 08/10/2017 Diabetes mellitus 04/10/2012 11/24/2014 Type II or unspecified type diabetes mellitus without mention of complication, uncontrolled 01/17/2011 04/10/2012 Overview: Previously impaired fasting, converted to DM perhaps 2010 Medication side effects 10/21/2009 08/11/19 18 Hyperprolactinemia 05/21/2009 01/30/2012 Routine general medical exam ination at a health care facility 08/18/2008 11/29/2011 Overview: 08/18/08 -- establish, from Dr. Mathews (retired) Routine gynecological examination 08/18/2008 11/29/2011 Overview: [facility] [place] Pain in joint, site unspecified 08/29/2007 07/24/2016 Unspecified gastritis and ga stroduodenitis without mention of hemorrhage 02/07/2007 07/24/2016 Localized osteoarthrosis not specified whether primary or secondary, lower leg 02/07/2007 07/24/2016 Overview: Both knees. Indocin helps. Acute gastritis without mention of hemorrhage 02/07/2007 Hyperprolactinemia 10/13/2005 05/02/2021 Major depressive disorder, recurrent episode, un specified 08/12/2005 11/24/2014 Overview: Dr. Bustamante ([facility]) Osteoarthrosis, unspecified whether generalized or localized, unspecified site 08/12/2005 02/07/2007 documented as of this encounter (statuses as of 04/04/2022) [facility] History of Past illness Narrative* Problem Noted Date Resolved Date Obesity, Class III, BMI >= 40 08/10/2017 Diabetes mellitus 04/10/2012 11/24/2014 Type II or unspecified type diabetes mellitus without mention of complication, uncontrolled 01/17/2011 04/10/2012 Overview: Previously impaired fasting, converted to DM perhaps 2010 Medication side effects 10/21/2009 08/11/19 18 Hyperprolactinemia 05/21/2009 01/30/2012 Routine general medical exam ination at a health care facility 08/18/2008 11/29/2011 Overview: 08/18/08 -- establish, from Dr. Mathews (retired) Routine gynecological examination 08/18/2008 11/29/2011 Overview: [facility] [place] Pain in joint, site unspecified 08/29/2007 07/24/2016 Unspecified gastritis and ga stroduodenitis without mention of hemorrhage 02/07/2007 07/24/2016 Localized osteoarthrosis not specified whether primary or secondary, lower leg 02/07/2007 07/24/2016 Overview: Both knees. Indocin helps. Acute gastritis without mention of hemorrhage 02/07/2007 Hyperprolactinemia 10/13/2005 05/02/2021 Major depressive disorder, recurrent episode, un specified 08/12/2005 11/24/2014 Overview: Dr. Bustamante ([facility]) Osteoarthrosis, unspecified whether generalized or localized, unspecified site 08/12/2005 02/07/2007 documented as of this encounter (statuses as of 04/19/2022) [facility] History of Past illness Narrative* Problem Noted Date Resolved Date Obesity, Class III, BMI >= 40 08/10/2017 Diabetes mellitus 04/10/2012 11/24/2014 Type II or unspecified type diabetes mellitus without mention of complication, uncontrolled 01/17/2011 04/10/2012 Overview: Previously impaired fasting, converted to DM perhaps 2010 Medication side effects 10/21/2009 08/11/19 18 Hyperprolactinemia 05/21/2009 01/30/2012 Routine general medical exam ination at a health care facility 08/18/2008 11/29/2011 Overview: 08/18/08 -- establish, from Dr. Mathews (retired) Routine gynecological examination 08/18/2008 11/29/2011 Overview: [facility], [facility] [place] Pain in joint, site unspecified 08/29/2007 07/24/2016 Unspecified gastritis and ga stroduodenitis without mention of hemorrhage 02/07/2007 07/24/2016 Localized osteoarthrosis not specified whether primary or secondary, lower leg 02/07/2007 07/24/2016 Overview: Both knees. Indocin helps. Acute gastritis without mention of hemorrhage 02/07/2007 Hyperprolactinemia 10/13/2005 05/02/2021 Major depressive disorder, recurrent episode, un specified 08/12/2005 11/24/2014 Overview: Dr. Bustamante ([facility]) Osteoarthrosis, unspecified whether generalized or localized, unspecified site 08/12/2005 02/07/2007 documented as of this encounter (statuses as of 04/21/2022) [facility] History of Past illness Narrative* Problem Noted Date Resolved Date Obesity, Class III, BMI >= 40 08/10/2017 Diabetes mellitus 04/10/2012 11/24/2014 Type II or unspecified type diabetes mellitus without mention of complication, uncontrolled 01/17/2011 04/10/2012 Overview: Previously impaired fasting, converted to DM perhaps 2010 Medication side effects 10/21/2009 08/11/19 18 Hyperprolactinemia 05/21/2009 01/30/2012 Routine general medical exam ination at a health care facility 08/18/2008 11/29/2011 Overview: 08/18/08 -- establish, from Dr. Mathews (retired) Routine gynecological examination 08/18/2008 11/29/2011 Overview: [facility], [facility] [place] Pain in joint, site unspecified 08/29/2007 07/24/2016 Unspecified gastritis and ga stroduodenitis without mention of hemorrhage 02/07/2007 07/24/2016 Localized osteoarthrosis not specified whether primary or secondary, lower leg 02/07/2007 07/24/2016 Overview: Both knees. Indocin helps. Acute gastritis without mention of hemorrhage 02/07/2007 Hyperprolactinemia 10/13/2005 05/02/2021 Major depressive disorder, recurrent episode, un specified 08/12/2005 11/24/2014 Overview: Dr. Bustamante ([facility]) Osteoarthrosis, unspecified whether generalized or localized, unspecified site 08/12/2005 02/07/2007 documented as of this encounter (statuses as of 04/24/2022) [facility] History of Past illness Narrative* Problem Noted Date Resolved Date Obesity, Class III, BMI >= 40 08/10/2017 Diabetes mellitus 04/10/2012 11/24/2014 Type II or unspecified type diabetes mellitus without mention of complication, uncontrolled 01/17/2011 04/10/2012 Overview: Previously impaired fasting, converted to DM perhaps 2010 Medication side effects 10/21/2009 08/11/19 18 Hyperprolactinemia 05/21/2009 01/30/2012 Routine general medical exam ination at a health care facility 08/18/2008 11/29/2011 Overview: 08/18/08 -- establish, from Dr. Mathews (retired) Routine gynecological examination 08/18/2008 11/29/2011 Overview: [facility] [place] Pain in joint, site unspecified 08/29/2007 07/24/2016 Unspecified gastritis and ga stroduodenitis without mention of hemorrhage 02/07/2007 07/24/2016 Localized osteoarthrosis not specified whether primary or secondary, lower leg 02/07/2007 07/24/2016 Overview: Both knees. Indocin helps. Acute gastritis without mention of hemorrhage 02/07/2007 Hyperprolactinemia 10/13/2005 05/02/2021 Major depressive disorder, recurrent episode, un specified 08/12/2005 11/24/2014 Overview: Dr. Bustamante ([facility]) Osteoarthrosis, unspecified whether generalized or localized, unspecified site 08/12/2005 02/07/2007 documented as of this encounter (statuses as of 05/08/2022) [facility] History of Past illness Narrative* Problem Noted Date Resolved Date Obesity, Class III, BMI >= 40 08/10/2017 Diabetes mellitus 04/10/2012 11/24/2014 Type II or unspecified type diabetes mellitus without mention of complication, uncontrolled 01/17/2011 04/10/2012 Overview: Previously impaired fasting, converted to DM perhaps 2010 Medication side effects 10/21/2009 08/11/19 18 Hyperprolactinemia 05/21/2009 01/30/2012 Routine general medical exam ination at a health care facility 08/18/2008 11/29/2011 Overview: 08/18/08 -- establish, from Dr. Mathews (retired) Routine gynecological examination 08/18/2008 11/29/2011 Overview: [facility], [facility] [place] Pain in joint, site unspecified 08/29/2007 07/24/2016 Unspecified gastritis and ga stroduodenitis without mention of hemorrhage 02/07/2007 07/24/2016 Localized osteoarthrosis not specified whether primary or secondary, lower leg 02/07/2007 07/24/2016 Overview: Both knees. Indocin helps. Acute gastritis without mention of hemorrhage 02/07/2007 Hyperprolactinemia 10/13/2005 05/02/2021 Major depressive disorder, recurrent episode, un specified 08/12/2005 11/24/2014 Overview: Dr. Bustamante ([facility]) Osteoarthrosis, unspecified whether generalized or localized, unspecified site 08/12/2005 02/07/2007 documented as of this encounter (statuses as of 05/17/2022) [facility] History of Past illness Narrative* Problem Noted Date Resolved Date Obesity, Class III, BMI >= 40 08/10/2017 Diabetes mellitus 04/10/2012 11/24/2014 Type II or unspecified type diabetes mellitus without mention of complication, uncontrolled 01/17/2011 04/10/2012 Overview: Previously impaired fasting, converted to DM perhaps 2010 Medication side effects 10/21/2009 08/11/19 18 Hyperprolactinemia 05/21/2009 01/30/2012 Routine general medical exam ination at a health care facility 08/18/2008 11/29/2011 Overview: 08/18/08 -- establish, from Dr. Mathews (retired) Routine gynecological examination 08/18/2008 11/29/2011 Overview: [facility], [facility] [place] Pain in joint, site unspecified 08/29/2007 07/24/2016 Unspecified gastritis and ga stroduodenitis without mention of hemorrhage 02/07/2007 07/24/2016 Localized osteoarthrosis not specified whether primary or secondary, lower leg 02/07/2007 07/24/2016 Overview: Both knees. Indocin helps. Acute gastritis without mention of hemorrhage 02/07/2007 Hyperprolactinemia 10/13/2005 05/02/2021 Major depressive disorder, recurrent episode, un specified 08/12/2005 11/24/2014 Overview: Dr. Bustamante ([facility]) Osteoarthrosis, unspecified whether generalized or localized, unspecified site 08/12/2005 02/07/2007 documented as of this encounter (statuses as of 05/22/2022) [facility] History of Past illness Narrative* Problem Noted Date Resolved Date Obesity, Class III, BMI >= 40 08/10/2017 Diabetes mellitus 04/10/2012 11/24/2014 Type II or unspecified type diabetes mellitus without mention of complication, uncontrolled 01/17/2011 04/10/2012 Overview: Previously impaired fasting, converted to DM perhaps 2010 Medication side effects 10/21/2009 08/11/19 18 Hyperprolactinemia 05/21/2009 01/30/2012 Routine general medical exam ination at a health care facility 08/18/2008 11/29/2011 Overview: 08/18/08 -- establish, from Dr. Mathews (retired) Routine gynecological examination 08/18/2008 11/29/2011 Overview: [facility] [place] [facility], [facility] [place] Pain in joint, site unspecified 08/29/2007 07/24/2016 Unspecified gastritis and ga stroduodenitis without mention of hemorrhage 02/07/2007 07/24/2016 Localized osteoarthrosis not specified whether primary or secondary, lower leg 02/07/2007 07/24/2016 Overview: Both knees. Indocin helps. Acute gastritis without mention of hemorrhage 02/07/2007 Hyperprolactinemia 10/13/2005 05/02/2021 Major depressive disorder, recurrent episode, un specified 08/12/2005 11/24/2014 Overview: Dr. Bustamante ([facility]) Osteoarthrosis, unspecified whether generalized or localized, unspecified site 08/12/2005 02/07/2007 documented as of this encounter (statuses as of 06/19/2022) [facility] History of Past illness Narrative* Problem Noted Date Resolved Date Obesity, Class III, BMI >= 40 08/10/2017 Diabetes mellitus 04/10/2012 11/24/2014 Type II or unspecified type diabetes mellitus without mention of complication, uncontrolled 01/17/2011 04/10/2012 Overview: Previously impaired fasting, converted to DM perhaps 2010 Medication side effects 10/21/2009 08/11/19 18 Hyperprolactinemia 05/21/2009 01/30/2012 Routine general medical exam ination at a health care facility 08/18/2008 11/29/2011 Overview: 08/18/08 -- establish, from Dr. Mathews (retired) Routine gynecological examination 08/18/2008 11/29/2011 Overview: [facility], [facility] [place] Pain in joint, site unspecified 08/29/2007 07/24/2016 Unspecified gastritis and ga stroduodenitis without mention of hemorrhage 02/07/2007 07/24/2016 Localized osteoarthrosis not specified whether primary or secondary, lower leg 02/07/2007 07/24/2016 Overview: Both knees. Indocin helps. Acute gastritis without mention of hemorrhage 02/07/2007 Hyperprolactinemia 10/13/2005 05/02/2021 Major depressive disorder, recurrent episode, un specified 08/12/2005 11/24/2014 Overview: Dr[facility] Bustamante ([facility]) Osteoarthrosis, unspecified whether generalized or localized, unspecified site 08/12/2005 02/07/2007 documented as of this encounter (statuses as of 06/23/2022) [facility] History of Past illness Narrative* Problem Noted Date Resolved Date Obesity, Class III, BMI >= 40 08/10/2017 Diabetes mellitus 04/10/2012 11/24/2014 Type II or unspecified type diabetes mellitus without mention of complication, uncontrolled 01/17/2011 04/10/2012 Overview: Previously impaired fasting, converted to DM perhaps 2010 Medication side effects 10/21/2009 08/11/19 18 Hyperprolactinemia 05/21/2009 01/30/2012 Routine general medical exam ination at a health care facility 08/18/2008 11/29/2011 Overview: 08/18/08 -- establish, from Dr. Mathews (retired) Routine gynecological examination 08/18/2008 11/29/2011 Overview: [facility], [facility] [place] Pain in joint, site unspecified 08/29/2007 07/24/2016 Unspecified gastritis and ga stroduodenitis without mention of hemorrhage 02/07/2007 07/24/2016 Localized osteoarthrosis not specified whether primary or secondary, lower leg 02/07/2007 07/24/2016 Overview: Both knees. Indocin helps. Acute gastritis without mention of hemorrhage 02/07/2007 Hyperprolactinemia 10/13/2005 05/02/2021 Major depressive disorder, recurrent episode, un specified 08/12/2005 11/24/2014 Overview: Dr[facility] Bustamante ([facility]) Osteoarthrosis, unspecified whether generalized or localized, unspecified site 08/12/2005 02/07/2007 documented as of this encounter (statuses as of 06/28/2022) [facility] note* Diagnosis Acute COVID-19- Primary Hypoxia Hypoxemia Dyspnea and respiratory abnormalities Other dyspnea and respiratory abnormality History of CHF (congestive heart failure) Personal history of other diseases of circulatory system 2019 novel coronavirus disease (COVID-19) documented in this encounter [facility] Work Phone: Evaluation note* Diagnosis Postoperative pain- Primary Other acute postoperative pain documented in this encounter [facility] note* Diagnosis JEREMÍAS (obstructive sleep apnea)- Primary Obstructive sleep apnea (adult) (pediatric) [facility] Diagnosis Encounter for screening mammogram for breast cancer documented in this encounter [facility] note* Diagnosis Pressure injury of right thigh, stage 3 (HCC)- Primary Physical debility Debility, unspecified documented in this encounter [facility] note* Diagnosis Pressure injury of left thigh, stage 3 (HCC)- Primary Pressure injury of right thigh, stage 3 (HCC) Physical debility Debility, unspecified documented in this encounter [facility] note* Diagnosis Tinea corporis Dermatophytosis of the body documented in this [facility]* Diagnosis Primary hyperparathyroidism (HCC)- Primary Primary hyperparathyroidism Primary hyperparathyroidism (HCC) Primary hyperparathyroidism [facility]* Diagnosis Pre-operative examination- Primary Preoperative examination, unspecified Primary hyperparathyroidism (HCC) Primary hyperparathyroidism Obstructive sleep apnea Obstructive sleep apnea (adult) (pediatric) Benign hypertensive heart disease with CHF, NYHA class 2 (HCC) Benign hypertensive heart disease with heart failure Chronic respiratory failure with hypoxia (HCC) Chronic respiratory failure Debility Debility, unspecified Diaphragmatic hernia without obstruction and without gangrene Deep vein thrombosis (DVT) of proximal vein of left lower extremity, unspecified chronicity (HCC) Dysthymia Dysthymic disorder Gastroesophageal reflux disease without esophagitis Esophageal reflux Type 2 diabetes mellitus with peripheral neuropathy (HCC) Liver disease Unspecified disorder of liver Former smoker Personal history of tobacco use, presenting hazards to health Pressure injury of skin of thigh, unspecified injury stage, unspecified laterality Obesity, Class III, BMI >= 40 Morbid obesity Primary hyperparathyroidism (HCC) Primary hyperparathyroidism [facility] Diagnosis Essential hypertension, benign Primary hyperparathyroidism (HCC) Primary hyperparathyroidism [facility] Diagnosis Pressure injury of right thigh, stage 3 (HCC)- Primary Pressure injury of left thigh, stage 3 (HCC) Physical debility Debility, unspecified Primary hyperparathyroidism (HCC) Primary hyperparathyroidism [facility] Diagnosis Anxiety state Anxiety state, unspecified Primary hyperparathyroidism (HCC) Primary hyperparathyroidism [facility] Primary hyperparathyroidism (HCC)- Primary Primary hyperparathyroidism [facility] Diagnosis Leukocytosis, unspecified type- Primary Abnormal labor Unspecified abnormality of labor, unspecified as to episode of care [facility] Diagnosis Pressure injury of left thigh, stage 3 (HCC)- Primary Pressure injury of right thigh, stage 3 (HCC) Physical debility Debility, unspecified [facility] Diagnosis Pressure injury of right thigh, stage 3 (HCC)- Primary Pressure injury of left thigh, stage 3 (HCC) Physical debility Debility, unspecified [facility] Diagnosis DDD (degenerative disc disease), lumbar Degeneration of lumbar or lumbosacral intervertebral disc [facility] Diagnosis Anxiety state Anxiety state, unspecified [facility] Diagnosis Type 2 diabetes mellitus with peripheral neuropathy (HCC)- Primary [facility] Diagnosis Chronic pain of both knees- Primary Primary osteoarthritis of both knees Primary localized osteoarthrosis, lower leg [facility] Essential hypertension, benign [facility] Diagnosis Chronic pain of left knee- Primary Pain in joint, lower leg Primary osteoarthritis of left knee Primary localized osteoarthrosis, lower leg [facility] Diagnosis Type 2 diabetes mellitus with peripheral neuropathy (HCC)- Primary Encounter for immunization Need for other specified prophylactic vaccination against single bacterial disease Benign hypertensive heart disease with CHF, NYHA class 2 (HCC) Benign hypertensive heart disease with heart failure Primary hyperparathyroidism (HCC) Primary hyperparathyroidism DDD (degenerative disc disease), lumbar Degeneration of lumbar or lumbosacral intervertebral disc Essential hypertension, benign Obstructive sleep apnea Obstructive sleep apnea (adult) (pediatric) Diffuse myofascial pain syndrome Mylagia and myositis, unspecified DDD (degenerative disc disease), cervical Degeneration of cervical intervertebral disc [facility]* Diagnosis DDD (degenerative disc disease), lumbar Degeneration of lumbar or lumbosacral intervertebral disc documented in this [facility]* Diagnosis DDD (degenerative disc disease), lumbar Degeneration of lumbar or lumbosacral intervertebral disc documented in this [facility]* Diagnosis Type 2 diabetes mellitus with peripheral neuropathy (HCC)- Primary SVT (supraventricular tachycardia) ([facility]) Other specified cardiac dysrhythmias Benign hypertensive heart disease with CHF, NYHA class 2 (HCC) Benign hypertensive heart disease with heart failure Obstructive sleep apnea Obstructive sleep apnea (adult) (pediatric) Primary hyperparathyroidism (HCC) Primary hyperparathyroidism Hypercalcemia DDD (degenerative disc disease), cervical Degeneration of cervical intervertebral disc DDD (degenerative disc disease), lumbar Degeneration of lumbar or lumbosacral intervertebral disc Anxiety state Anxiety state, unspecified Tremor Abnormal involuntary movements Screening for HIV (human immunodeficiency virus) Special screening examination for other specified viral diseases Medication monitoring encounter Encounter for therapeutic drug monitoring [facility] Diagnosis Onset Date Resolution Status Cellulitis of left leg acute Cellulitis of right leg acut e Influenza A acute Sepsis acute Diabetes mellitus, type II c hronic Morbid obesity [facility] Work Phone: Evaluation note* Diagnosis Cellulitis of buttock- Primary Cellulitis and abscess of buttock Urinary tract infection without hematuria, site unspecified Bacteremia documented in this encounter [facility] note* Diagnosis DDD (degenerative disc disease), lumbar Degeneration of lumbar or lumbosacral intervertebral disc [facility]* Diagnosis Mixed hyperlipidemia BENIGN HYPERTENSION Essential hypertension, benign [facility] (supraventricular tachycardia[facility] ([facility])- Primary Other specified cardiac dysrhythmias Benign hypertensive heart disease with CHF, NYHA class 2 (HCC) Benign hypertensive heart disease with heart failure Chronic respiratory failure with hypoxia (HCC) Chronic respiratory failure Obstructive sleep apnea Obstructive sleep apnea (adult) (pediatric) Morbid obesity (HCC) Morbid obesity Type 2 diabetes mellitus with peripheral neuropathy (HCC) Primary hyperparathyroidism (HCC) Primary hyperparathyroidism Dysthymia Dysthymic disorder Major depressive disorder, recurrent episode, moderate (HCC) Major depressive disorder, recurrent episode, moderate Pain disorder with psychological factors Psychogenic pain, site unspecified Diaphragmatic hernia without obstruction and without gangrene Gastroesophageal reflux disease without esophagitis Esophageal reflux Diffuse myofascial pain syndrome Mylagia and myositis, unspecified Lumbar facet arthropathy Lumbosacral spondylosis without myelopathy DDD (degenerative disc disease), cervical Degeneration of cervical intervertebral disc Spondylolisthesis, unspecified spinal region Acute upper respiratory infection Acute upper respiratory infections of unspecified site [facility] Diagnosis DDD (degenerative disc disease), lumbar Degeneration of lumbar or lumbosacral intervertebral disc [facility] Diagnosis DDD (degenerative disc disease), cervical Degeneration of cervical intervertebral disc [facility] Diagnosis Essential hypertension, benign- Primary documented in this encounter [facility] note* Diagnosis DDD (degenerative disc disease), lumbar Degeneration of lumbar or lumbosacral intervertebral disc [facility] Diagnosis Lumbar radiculopathy- Primary Thoracic or lumbosacral neuritis or radiculitis, unspecified Type 2 diabetes mellitus with peripheral neuropathy ([facility]) Diffuse myofascial pain syndrome Mylagia and myositis, unspecified Essential hypertension, benign DDD (degenerative disc disease), lumbar Degeneration of lumbar or lumbosacral intervertebral disc DDD (degenerative disc disease), cervical Degeneration of cervical intervertebral disc Bilateral primary osteoarthritis of knee Chronic respiratory failure with hypoxia (HCC) Chronic respiratory failure Obstructive sleep apnea Obstructive sleep apnea (adult) (pediatric) Benign hypertensive heart disease with CHF, NYHA class 2 (HCC) Benign hypertensive heart disease with heart failure SVT (supraventricular tachycardia) (HCC) Other specified cardiac dysrhythmias Pain disorder with psychological factors Psychogenic pain, site unspecified Gastroesophageal reflux disease without esophagitis Esophageal reflux Primary hyperparathyroidism (HCC) Primary hyperparathyroidism Debility Debility, unspecified Anxiety state Anxiety state, unspecified Major depressive disorder, recurrent episode, moderate (HCC) Major depressive disorder, recurrent episode, moderate Tongue lesion Other specified conditions of the [facility] RLS (restless legs syndrome)- Primary Restless legs syndrome (RLS) [facility] Diagnosis Open wound- Primary Open wound(s) (multiple) of unspecified site(s), without mention of complication [facility] Diagnosis Dysthymia Dysthymic disorder Major depressive disorder, recurrent episode, moderate (HCC) Major depressive disorder, recurrent episode, moderate [facility] Diagnosis Open wound of skin- Primary [facility]* Diagnosis DDD (degenerative disc disease), lumbar- Primary Degeneration of lumbar or lumbosacral intervertebral disc [facility] Diagnosis DDD (degenerative disc disease), lumbar Degeneration of lumbar or lumbosacral intervertebral disc [facility] Diagnosis Functional tremor- Primary Musculoskeletal malfunction arising from mental factors [facility] Diagnosis BENIGN HYPERTENSION Essential hypertension, benign [facility] Diagnosis Skin ulcer, limited to breakdown of skin (HCC)- Primary [facility] Diagnosis Pressure injury of skin of thigh, unspecified injury stage, unspecified laterality- Primary [facility] Diagnosis Pressure injury of skin of thigh, unspecified injury stage, unspecified laterality [facility] Diagnosis Pressure injury of left thigh, stage 3 (HCC)- Primary [facility] Diagnosis Type 2 diabetes mellitus with peripheral neuropathy (HCC) [facility]* Diagnosis Type 2 diabetes mellitus with peripheral neuropathy (HCC) BENIGN HYPERTENSION Essential hypertension, benign Anxiety state Anxiety state, unspecified DDD (degenerative disc disease), cervical Degeneration of cervical intervertebral disc Acute upper respiratory infection Acute upper respiratory infections of unspecified site Mixed hyperlipidemia [facility] Diagnosis Hypercalcemia [facility] Diagnosis Pain Generalized pain [facility] Diagnosis Dysuria- Primary [facility]* Diagnosis DDD (degenerative disc disease), lumbar Degeneration of lumbar or lumbosacral intervertebral disc [facility]* Diagnosis Anxiety state- Primary Anxiety state, unspecified Essential hypertension, benign Hypercalcemia Type 2 diabetes mellitus with peripheral neuropathy (HCC) documented [facility]* Diagnosis Tinea corporis Dermatophytosis of the body documented in this [facility]* Diagnosis Controlled type 2 diabetes mellitus without complication, with long-term current use of insulin (HCC)- Primary [facility]* Diagnosis Type 2 diabetes mellitus with peripheral neuropathy (HCC) documented [facility] this [facility]* Diagnosis Encounter for screening mammogram for breast cancer documented [facility] this [facility]* Diagnosis Diabetes mellitus type 2 with ketoacidosis, uncontrolled (HCC)- Primary Type II or unspecified type diabetes mellitus with ketoacidosis, uncontrolled Pressure injury of elbow, stage 3, unspecified laterality (HCC) documented in this [facility]* Diagnosis Onset Date Resolution Status Morbid obesity with BMI of 70 and over, adult acute Pressure ulcer of upper thigh acute [facility] Work Phone: Evaluation note* Diagnosis Essential hypertension, benign- Primary Benign hypertensive heart disease with CHF, NYHA class 2 (HCC) Benign hypertensive heart disease with heart failure SVT (supraventricular tachycardia) (HCC) Other specified cardiac dysrhythmias Debility Debility, unspecified Type 2 diabetes mellitus with peripheral neuropathy (HCC) super obesity Morbid obesity Pressure injury of left thigh, stage 2 (HCC) documented in this [facility]* Diagnosis DDD (degenerative disc disease), lumbar Degeneration of lumbar or lumbosacral intervertebral disc DDD (degenerative disc disease), cervical Degeneration of cervical intervertebral disc Lumbar facet arthropathy Lumbosacral spondylosis without myelopathy Diffuse myofascial pain syndrome Mylagia and myositis, unspecified Pain disorder with psychological factors Psychogenic pain, site unspecified [facility] Diagnosis Onset Date Resolution Status Morbid obesity with BMI of 70 and over, adult acute Pressure ulcer of upper thigh acute Morbid obesity with BMI of 70 and over, adult acute Pressure ulcer of upper thigh acute [facility] Work Phone: Evaluation note* Diagnosis Super obesity- Primary Morbid obesity [facility] Diagnosis Anxiety state Anxiety state, unspecified [facility] Diagnosis Pressure injury of elbow, stage 3, unspecified laterality (HCC) Controlled type 2 diabetes mellitus without complication, with long-term current use of insulin (HCC) DDD (degenerative disc disease), lumbar Degeneration of lumbar or lumbosacral intervertebral disc DDD (degenerative disc disease), cervical Degeneration of cervical intervertebral disc Lumbar facet arthropathy Lumbosacral spondylosis without myelopathy Diffuse myofascial pain syndrome Mylagia and myositis, unspecified Pain disorder with psychological factors Psychogenic pain, site unspecified Super obesity Morbid obesity [facility] Diagnosis Foot pain, bilateral- Primary Pain in limb Type 2 diabetes mellitus with peripheral neuropathy ([facility]) [facility] Diagnosis Super obesity Morbid obesity [facility] Diagnosis Herpes zoster without complication- Primary Herpes zoster without mention of complication [facility]* Diagnosis Class 3 severe obesity with body mass index (BMI) greater than or equal to 70 in adult, unspecified obesity type, unspecified whether serious comorbidity present (HCC)- Primary Controlled type 2 diabetes mellitus without complication, with long-term current use of insulin (HCC) Chronic constipation Unspecified constipation Type 2 diabetes mellitus with peripheral neuropathy (HCC) Herpes zoster without complication Herpes zoster without mention of complication [facility]* Diagnosis Pre-operative examination- Primary Preoperative examination, unspecified Primary hyperparathyroidism (HCC) Primary hyperparathyroidism Obstructive sleep apnea Obstructive sleep apnea (adult) (pediatric) Benign hypertensive heart disease with CHF, NYHA class 2 (HCC) Benign hypertensive heart disease with heart failure Chronic respiratory failure with hypoxia (HCC) Chronic respiratory failure Debility Debility, unspecified Diaphragmatic hernia without obstruction and without gangrene Deep vein thrombosis (DVT) of proximal vein of left lower extremity, unspecified chronicity (HCC) Dysthymia Dysthymic disorder Gastroesophageal reflux disease without esophagitis Esophageal reflux Type 2 diabetes mellitus with peripheral neuropathy (HCC) Liver disease Unspecified disorder of liver Former smoker Personal history of tobacco use, presenting hazards to health Pressure injury of skin of thigh, unspecified injury stage, unspecified laterality Obesity, Class III, BMI >= 40 Morbid obesity Essential hypertension, benign- Primary DDD (degenerative disc disease), cervical Degeneration of cervical intervertebral disc Lumbar facet arthropathy Lumbosacral spondylosis without myelopathy Diffuse myofascial pain syndrome Mylagia and myositis, unspecified Pain disorder with psychological factors Psychogenic pain, site unspecified Encounter for immunization Need for other specified prophylactic vaccination against single bacterial disease Anxiety state Anxiety state, unspecified Super obesity Morbid obesity Diabetes mellitus type 2 with ketoacidosis, uncontrolled (HCC) Type II or unspecified type diabetes mellitus with ketoacidosis, uncontrolled Herpes zoster keratitis Herpes zoster keratoconjunctivitis documented in this encounter [facility] note* Diagnosis Pre-operative examination- Primary Preoperative examination, unspecified Primary hyperparathyroidism (HCC) Primary hyperparathyroidism Obstructive sleep apnea Obstructive sleep apnea (adult) (pediatric) Benign hypertensive heart disease with CHF, NYHA class 2 (HCC) Benign hypertensive heart disease with heart failure Chronic respiratory failure with hypoxia (HCC) Chronic respiratory failure Debility Debility, unspecified Diaphragmatic hernia without obstruction and without gangrene Deep vein thrombosis (DVT) of proximal vein of left lower extremity, unspecified chronicity (HCC) Dysthymia Dysthymic disorder Gastroesophageal reflux disease without esophagitis Esophageal reflux Type 2 diabetes mellitus with peripheral neuropathy (HCC) Liver disease Unspecified disorder of liver Former smoker Personal history of tobacco use, presenting hazards to health Pressure injury of skin of thigh, unspecified injury stage, unspecified laterality Obesity, Class III, BMI >= 40 Morbid obesity DDD (degenerative disc disease), lumbar Degeneration of lumbar or lumbosacral intervertebral disc DDD (degenerative disc disease), cervical Degeneration of cervical intervertebral disc Lumbar facet arthropathy Lumbosacral spondylosis without myelopathy Diffuse myofascial pain syndrome Mylagia and myositis, unspecified Pain disorder with psychological factors Psychogenic pain, site unspecified documented in this encounter [facility] note* Diagnosis Pre-operative examination- Primary Preoperative examination, unspecified Primary hyperparathyroidism (HCC) Primary hyperparathyroidism Obstructive sleep apnea Obstructive sleep apnea (adult) (pediatric) Benign hypertensive heart disease with CHF, NYHA class 2 (HCC) Benign hypertensive heart disease with heart failure Chronic respiratory failure with hypoxia (HCC) Chronic respiratory failure Debility Debility, unspecified Diaphragmatic hernia without obstruction and without gangrene Deep vein thrombosis (DVT) of proximal vein of left lower extremity, unspecified chronicity (HCC) Dysthymia Dysthymic disorder Gastroesophageal reflux disease without esophagitis Esophageal reflux Type 2 diabetes mellitus with peripheral neuropathy (HCC) Liver disease Unspecified disorder of liver Former smoker Personal history of tobacco use, presenting hazards to health Pressure injury of skin of thigh, unspecified injury stage, unspecified laterality Obesity, Class III, BMI >= 40 Morbid obesity BENIGN HYPERTENSION Essential hypertension, benign [facility] Diagnosis Pre-operative examination- Primary Preoperative examination, unspecified Primary hyperparathyroidism (HCC) Primary hyperparathyroidism Obstructive sleep apnea Obstructive sleep apnea (adult) (pediatric) Benign hypertensive heart disease with CHF, NYHA class 2 (HCC) Benign hypertensive heart disease with heart failure Chronic respiratory failure with hypoxia (HCC) Chronic respiratory failure Debility Debility, unspecified Diaphragmatic hernia without obstruction and without gangrene Deep vein thrombosis (DVT) of proximal vein of left lower extremity, unspecified chronicity (HCC) Dysthymia Dysthymic disorder Gastroesophageal reflux disease without esophagitis Esophageal reflux Type 2 diabetes mellitus with peripheral neuropathy (HCC) Liver disease Unspecified disorder of liver Former smoker Personal history of tobacco use, presenting hazards to health Pressure injury of skin of thigh, unspecified injury stage, unspecified laterality Obesity, Class III, BMI >= 40 Morbid obesity Pressure injury of thigh, unstageable, unspecified laterality (HCC)- Primary documented in this encounter [facility] note* Diagnosis Pre-operative examination- Primary Preoperative examination, unspecified Primary hyperparathyroidism (HCC) Primary hyperparathyroidism Obstructive sleep apnea Obstructive sleep apnea (adult) (pediatric) Benign hypertensive heart disease with CHF, NYHA class 2 (HCC) Benign hypertensive heart disease with heart failure Chronic respiratory failure with hypoxia (HCC) Chronic respiratory failure Debility Debility, unspecified Diaphragmatic hernia without obstruction and without gangrene Deep vein thrombosis (DVT) of proximal vein of left lower extremity, unspecified chronicity (HCC) Dysthymia Dysthymic disorder Gastroesophageal reflux disease without esophagitis Esophageal reflux Type 2 diabetes mellitus with peripheral neuropathy (HCC) Liver disease Unspecified disorder of liver Former smoker Personal history of tobacco use, presenting hazards to health Pressure injury of skin of thigh, unspecified injury stage, unspecified laterality Obesity, Class III, BMI >= 40 Morbid obesity Mixed hyperlipidemia Essential hypertension, benign [facility]* Diagnosis Pre-operative examination- Primary Preoperative examination, unspecified Primary hyperparathyroidism (HCC) Primary hyperparathyroidism Obstructive sleep apnea Obstructive sleep apnea (adult) (pediatric) Benign hypertensive heart disease with CHF, NYHA class 2 (HCC) Benign hypertensive heart disease with heart failure Chronic respiratory failure with hypoxia (HCC) Chronic respiratory failure Debility Debility, unspecified Diaphragmatic hernia without obstruction and without gangrene Deep vein thrombosis (DVT) of proximal vein of left lower extremity, unspecified chronicity (HCC) Dysthymia Dysthymic disorder Gastroesophageal reflux disease without esophagitis Esophageal reflux Type 2 diabetes mellitus with peripheral neuropathy (HCC) Liver disease Unspecified disorder of liver Former smoker Personal history of tobacco use, presenting hazards to health Pressure injury of skin of thigh, unspecified injury stage, unspecified laterality Obesity, Class III, BMI >= 40 Morbid obesity DDD (degenerative disc disease), lumbar Degeneration of lumbar or lumbosacral intervertebral disc DDD (degenerative disc disease), cervical Degeneration of cervical intervertebral disc Lumbar facet arthropathy Lumbosacral spondylosis without myelopathy Diffuse myofascial pain syndrome Mylagia and myositis, unspecified Pain disorder with psychological factors Psychogenic pain, site unspecified Controlled type 2 diabetes mellitus without complication, with long-term current use of insulin (HCC) [facility] Pre-operative examination- Primary Preoperative examination, unspecified Primary hyperparathyroidism (HCC) Primary hyperparathyroidism Obstructive sleep apnea Obstructive sleep apnea (adult) (pediatric) Benign hypertensive heart disease with CHF, NYHA class 2 (HCC) Benign hypertensive heart disease with heart failure Chronic respiratory failure with hypoxia (HCC) Chronic respiratory failure Debility Debility, unspecified Diaphragmatic hernia without obstruction and without gangrene Deep vein thrombosis (DVT) of proximal vein of left lower extremity, unspecified chronicity (HCC) Dysthymia Dysthymic disorder Gastroesophageal reflux disease without esophagitis Esophageal reflux Type 2 diabetes mellitus with peripheral neuropathy (HCC) Liver disease Unspecified disorder of liver Former smoker Personal history of tobacco use, presenting hazards to health Pressure injury of skin of thigh, unspecified injury stage, unspecified laterality Obesity, Class III, BMI >= 40 Morbid obesity Diffuse myofascial pain syndrome Mylagia and myositis, unspecified [facility] Diagnosis Pre-operative examination- Primary Preoperative examination, unspecified Primary hyperparathyroidism (HCC) Primary hyperparathyroidism Obstructive sleep apnea Obstructive sleep apnea (adult) (pediatric) Benign hypertensive heart disease with CHF, NYHA class 2 (HCC) Benign hypertensive heart disease with heart failure Chronic respiratory failure with hypoxia (HCC) Chronic respiratory failure Debility Debility, unspecified Diaphragmatic hernia without obstruction and without gangrene Deep vein thrombosis (DVT) of proximal vein of left lower extremity, unspecified chronicity (HCC) Dysthymia Dysthymic disorder Gastroesophageal reflux disease without esophagitis Esophageal reflux Type 2 diabetes mellitus with peripheral neuropathy (HCC) Liver disease Unspecified disorder of liver Former smoker Personal history of tobacco use, presenting hazards to health Pressure injury of skin of thigh, unspecified injury stage, unspecified laterality Obesity, Class III, BMI >= 40 Morbid obesity DDD (degenerative disc disease), lumbar Degeneration of lumbar or lumbosacral intervertebral disc DDD (degenerative disc disease), cervical Degeneration of cervical intervertebral disc Lumbar facet arthropathy Lumbosacral spondylosis without myelopathy Diffuse myofascial pain syndrome Mylagia and myositis, unspecified Pain disorder with psychological factors Psychogenic pain, site unspecified [facility] Diagnosis Pre-operative examination- Primary Preoperative examination, unspecified Primary hyperparathyroidism (HCC) Primary hyperparathyroidism Obstructive sleep apnea Obstructive sleep apnea (adult) (pediatric) Benign hypertensive heart disease with CHF, NYHA class 2 (HCC) Benign hypertensive heart disease with heart failure Chronic respiratory failure with hypoxia (HCC) Chronic respiratory failure Debility Debility, unspecified Diaphragmatic hernia without obstruction and without gangrene Deep vein thrombosis (DVT) of proximal vein of left lower extremity, unspecified chronicity (HCC) Dysthymia Dysthymic disorder Gastroesophageal reflux disease without esophagitis Esophageal reflux Type 2 diabetes mellitus with peripheral neuropathy (HCC) Liver disease Unspecified disorder of liver Former smoker Personal history of tobacco use, presenting hazards to health Pressure injury of skin of thigh, unspecified injury stage, unspecified laterality Obesity, Class III, BMI >= 40 Morbid obesity Type 2 diabetes mellitus with peripheral neuropathy (HCC)- Primary Encounter for immunization Need for other specified prophylactic vaccination against single bacterial disease Pain disorder with psychological factors Psychogenic pain, site unspecified Diffuse myofascial pain syndrome Mylagia and myositis, unspecified SVT (supraventricular tachycardia) (HCC) Other specified cardiac dysrhythmias Essential hypertension, benign Obstructive sleep apnea Obstructive sleep apnea (adult) (pediatric) Chronic respiratory failure with hypoxia (HCC) Chronic respiratory failure Degeneration of intervertebral disc of lumbar region with discogenic back pain Anxiety with depression Screening for colon cancer Special screening for malignant neoplasms, colon Morbid obesity with BMI of 50.0-59.9, adult (HCC) Morbid obesity Age-related physical debility Senility without mention of psychosis [facility] Diagnosis Pre-operative examination- Primary Preoperative examination, unspecified Primary hyperparathyroidism (HCC) Primary hyperparathyroidism Obstructive sleep apnea Obstructive sleep apnea (adult) (pediatric) Benign hypertensive heart disease with CHF, NYHA class 2 (HCC) Benign hypertensive heart disease with heart failure Chronic respiratory failure with hypoxia (HCC) Chronic respiratory failure Debility Debility, unspecified Diaphragmatic hernia without obstruction and without gangrene Deep vein thrombosis (DVT) of proximal vein of left lower extremity, unspecified chronicity (HCC) Dysthymia Dysthymic disorder Gastroesophageal reflux disease without esophagitis Esophageal reflux Type 2 diabetes mellitus with peripheral neuropathy (HCC) Liver disease Unspecified disorder of liver Former smoker Personal history of tobacco use, presenting hazards to health Pressure injury of skin of thigh, unspecified injury stage, unspecified laterality Obesity, Class III, BMI >= 40 Morbid obesity Type 2 diabetes mellitus with peripheral neuropathy (HCC) Controlled type 2 diabetes mellitus without complication, with long-term current use of insulin (HCC) documented in this encounter [facility] note* Diagnosis Pre-operative examination- Primary Preoperative examination, unspecified Primary hyperparathyroidism (HCC) Primary hyperparathyroidism Obstructive sleep apnea Obstructive sleep apnea (adult) (pediatric) Benign hypertensive heart disease with CHF, NYHA class 2 (HCC) Benign hypertensive heart disease with heart failure Chronic respiratory failure with hypoxia (HCC) Chronic respiratory failure Debility Debility, unspecified Diaphragmatic hernia without obstruction and without gangrene Deep vein thrombosis (DVT) of proximal vein of left lower extremity, unspecified chronicity (HCC) Dysthymia Dysthymic disorder Gastroesophageal reflux disease without esophagitis Esophageal reflux Type 2 diabetes mellitus with peripheral neuropathy (HCC) Liver disease Unspecified disorder of liver Former smoker Personal history of tobacco use, presenting hazards to health Pressure injury of skin of thigh, unspecified injury stage, unspecified laterality Obesity, Class III, BMI >= 40 Morbid obesity Encounter for screening mammogram for breast cancer [facility] Diagnosis Pre-operative examination- Primary Preoperative examination, unspecified Primary hyperparathyroidism (HCC) Primary hyperparathyroidism Obstructive sleep apnea Obstructive sleep apnea (adult) (pediatric) Benign hypertensive heart disease with CHF, NYHA class 2 (HCC) Benign hypertensive heart disease with heart failure Chronic respiratory failure with hypoxia (HCC) Chronic respiratory failure Debility Debility, unspecified Diaphragmatic hernia without obstruction and without gangrene Deep vein thrombosis (DVT) of proximal vein of left lower extremity, unspecified chronicity (HCC) Dysthymia Dysthymic disorder Gastroesophageal reflux disease without esophagitis Esophageal reflux Type 2 diabetes mellitus with peripheral neuropathy (HCC) Liver disease Unspecified disorder of liver Former smoker Personal history of tobacco use, presenting hazards to health Pressure injury of skin of thigh, unspecified injury stage, unspecified laterality Obesity, Class III, BMI >= 40 Morbid obesity Rhinosinusitis- Primary Unspecified sinusitis (chronic) documented in this encounter [facility] note* Diagnosis Pre-operative examination- Primary Preoperative examination, unspecified Primary hyperparathyroidism (HCC) Primary hyperparathyroidism Obstructive sleep apnea Obstructive sleep apnea (adult) (pediatric) Benign hypertensive heart disease with CHF, NYHA class 2 (HCC) Benign hypertensive heart disease with heart failure Chronic respiratory failure with hypoxia (HCC) Chronic respiratory failure Debility Debility, unspecified Diaphragmatic hernia without obstruction and without gangrene Deep vein thrombosis (DVT) of proximal vein of left lower extremity, unspecified chronicity (HCC) Dysthymia Dysthymic disorder Gastroesophageal reflux disease without esophagitis Esophageal reflux Type 2 diabetes mellitus with peripheral neuropathy (HCC) Liver disease Unspecified disorder of liver Former smoker Personal history of tobacco use, presenting hazards to health Pressure injury of skin of thigh, unspecified injury stage, unspecified laterality Obesity, Class III, BMI >= 40 Morbid obesity Acute maxillary sinusitis, recurrence not specified- Primary documented in this encounter [facility] note* Diagnosis Pre-operative examination- Primary Preoperative examination, unspecified Primary hyperparathyroidism (HCC) Primary hyperparathyroidism Obstructive sleep apnea Obstructive sleep apnea (adult) (pediatric) Benign hypertensive heart disease with CHF, NYHA class 2 (HCC) Benign hypertensive heart disease with heart failure Chronic respiratory failure with hypoxia (HCC) Chronic respiratory failure Debility Debility, unspecified Diaphragmatic hernia without obstruction and without gangrene Deep vein thrombosis (DVT) of proximal vein of left lower extremity, unspecified chronicity (HCC) Dysthymia Dysthymic disorder Gastroesophageal reflux disease without esophagitis Esophageal reflux Type 2 diabetes mellitus with peripheral neuropathy (HCC) Liver disease Unspecified disorder of liver Former smoker Personal history of tobacco use, presenting hazards to health Pressure injury of skin of thigh, unspecified injury stage, unspecified laterality Obesity, Class III, BMI >= 40 Morbid obesity Diffuse myofascial pain syndrome Mylagia and myositis, unspecified [facility]* Diagnosis Pre-operative examination- Primary Preoperative examination, unspecified Primary hyperparathyroidism (HCC) Primary hyperparathyroidism Obstructive sleep apnea Obstructive sleep apnea (adult) (pediatric) Benign hypertensive heart disease with CHF, NYHA class 2 (HCC) Benign hypertensive heart disease with heart failure Chronic respiratory failure with hypoxia (HCC) Chronic respiratory failure Debility Debility, unspecified Diaphragmatic hernia without obstruction and without gangrene Deep vein thrombosis (DVT) of proximal vein of left lower extremity, unspecified chronicity (HCC) Dysthymia Dysthymic disorder Gastroesophageal reflux disease without esophagitis Esophageal reflux Type 2 diabetes mellitus with peripheral neuropathy (HCC) Liver disease Unspecified disorder of liver Former smoker Personal history of tobacco use, presenting hazards to health Pressure injury of skin of thigh, unspecified injury stage, unspecified laterality Obesity, Class III, BMI >= 40 Morbid obesity Super obesity Morbid obesity DDD (degenerative disc disease), lumbar Degeneration of lumbar or lumbosacral intervertebral disc DDD (degenerative disc disease), cervical Degeneration of cervical intervertebral disc Lumbar facet arthropathy Lumbosacral spondylosis without myelopathy Diffuse myofascial pain syndrome Mylagia and myositis, unspecified Pain disorder with psychological factors Psychogenic pain, site unspecified [facility] Diagnosis Pre-operative examination- Primary Preoperative examination, unspecified Primary hyperparathyroidism (HCC) Primary hyperparathyroidism Obstructive sleep apnea Obstructive sleep apnea (adult) (pediatric) Benign hypertensive heart disease with CHF, NYHA class 2 (HCC) Benign hypertensive heart disease with heart failure Chronic respiratory failure with hypoxia (HCC) Chronic respiratory failure Debility Debility, unspecified Diaphragmatic hernia without obstruction and without gangrene Deep vein thrombosis (DVT) of proximal vein of left lower extremity, unspecified chronicity (HCC) Dysthymia Dysthymic disorder Gastroesophageal reflux disease without esophagitis Esophageal reflux Type 2 diabetes mellitus with peripheral neuropathy (HCC) Liver disease Unspecified disorder of liver Former smoker Personal history of tobacco use, presenting hazards to health Pressure injury of skin of thigh, unspecified injury stage, unspecified laterality Obesity, Class III, BMI >= 40 Morbid obesity DDD (degenerative disc disease), cervical Degeneration of cervical intervertebral disc Lumbar facet arthropathy Lumbosacral spondylosis without myelopathy Diffuse myofascial pain syndrome Mylagia and myositis, unspecified Pain disorder with psychological factors Psychogenic pain, site unspecified DDD (degenerative disc disease), lumbar Degeneration of lumbar or lumbosacral intervertebral disc Type 2 diabetes mellitus with peripheral neuropathy (HCC) [facility] Diagnosis Pre-operative examination- Primary Preoperative examination, unspecified Primary hyperparathyroidism (HCC) Primary hyperparathyroidism Obstructive sleep apnea Obstructive sleep apnea (adult) (pediatric) Benign hypertensive heart disease with CHF, NYHA class 2 (HCC) Benign hypertensive heart disease with heart failure Chronic respiratory failure with hypoxia (HCC) Chronic respiratory failure Debility Debility, unspecified Diaphragmatic hernia without obstruction and without gangrene Deep vein thrombosis (DVT) of proximal vein of left lower extremity, unspecified chronicity (HCC) Dysthymia Dysthymic disorder Gastroesophageal reflux disease without esophagitis Esophageal reflux Type 2 diabetes mellitus with peripheral neuropathy (HCC) Liver disease Unspecified disorder of liver Former smoker Personal history of tobacco use, presenting hazards to health Pressure injury of skin of thigh, unspecified injury stage, unspecified laterality Obesity, Class III, BMI >= 40 Morbid obesity Anxiety state Anxiety state, unspecified Super obesity Morbid obesity DDD (degenerative disc disease), lumbar Degeneration of lumbar or lumbosacral intervertebral disc [facility] Diagnosis Pre-operative examination- Primary Preoperative examination, unspecified Primary hyperparathyroidism (HCC) Primary hyperparathyroidism Obstructive sleep apnea Obstructive sleep apnea (adult) (pediatric) Benign hypertensive heart disease with CHF, NYHA class 2 (HCC) Benign hypertensive heart disease with heart failure Chronic respiratory failure with hypoxia (HCC) Chronic respiratory failure Debility Debility, unspecified Diaphragmatic hernia without obstruction and without gangrene Deep vein thrombosis (DVT) of proximal vein of left lower extremity, unspecified chronicity (HCC) Dysthymia Dysthymic disorder Gastroesophageal reflux disease without esophagitis Esophageal reflux Type 2 diabetes mellitus with peripheral neuropathy (HCC) Liver disease Unspecified disorder of liver Former smoker Personal history of tobacco use, presenting hazards to health Pressure injury of skin of thigh, unspecified injury stage, unspecified laterality Obesity, Class III, BMI >= 40 Morbid obesity Congestive heart failure, unspecified HF chronicity, unspecified heart failure type (HCC) Major depressive disorder, recurrent episode, moderate (HCC) Major depressive disorder, recurrent episode, moderate Anxiety state Anxiety state, unspecified documented in this encounter [facility] note* Diagnosis Pre-operative examination- Primary Preoperative examination, unspecified Primary hyperparathyroidism (HCC) Primary hyperparathyroidism Obstructive sleep apnea Obstructive sleep apnea (adult) (pediatric) Benign hypertensive heart disease with CHF, NYHA class 2 (HCC) Benign hypertensive heart disease with heart failure Chronic respiratory failure with hypoxia (HCC) Chronic respiratory failure Debility Debility, unspecified Diaphragmatic hernia without obstruction and without gangrene Deep vein thrombosis (DVT) of proximal vein of left lower extremity, unspecified chronicity (HCC) Dysthymia Dysthymic disorder Gastroesophageal reflux disease without esophagitis Esophageal reflux Type 2 diabetes mellitus with peripheral neuropathy (HCC) Liver disease Unspecified disorder of liver Former smoker Personal history of tobacco use, presenting hazards to health Pressure injury of skin of thigh, unspecified injury stage, unspecified laterality Obesity, Class III, BMI >= 40 Morbid obesity DDD (degenerative disc disease), cervical- Primary Degeneration of cervical intervertebral disc Diffuse myofascial pain syndrome Mylagia and myositis, unspecified Bilateral primary osteoarthritis of knee [facility] Diagnosis Pre-operative examination- Primary Preoperative examination, unspecified Primary hyperparathyroidism (HCC) Primary hyperparathyroidism Obstructive sleep apnea Obstructive sleep apnea (adult) (pediatric) Benign hypertensive heart disease with CHF, NYHA class 2 (HCC) Benign hypertensive heart disease with heart failure Chronic respiratory failure with hypoxia (HCC) Chronic respiratory failure Debility Debility, unspecified Diaphragmatic hernia without obstruction and without gangrene Deep vein thrombosis (DVT) of proximal vein of left lower extremity, unspecified chronicity (HCC) Dysthymia Dysthymic disorder Gastroesophageal reflux disease without esophagitis Esophageal reflux Type 2 diabetes mellitus with peripheral neuropathy (HCC) Liver disease Unspecified disorder of liver Former smoker Personal history of tobacco use, presenting hazards to health Pressure injury of skin of thigh, unspecified injury stage, unspecified laterality Obesity, Class III, BMI >= 40 Morbid obesity DDD (degenerative disc disease), cervical Degeneration of cervical intervertebral disc Lumbar facet arthropathy Lumbosacral spondylosis without myelopathy Diffuse myofascial pain syndrome Mylagia and myositis, unspecified Pain disorder with psychological factors Psychogenic pain, site unspecified DDD (degenerative disc disease), lumbar Degeneration of lumbar or lumbosacral intervertebral disc [facility] Diagnosis Pre-operative examination- Primary Preoperative examination, unspecified Primary hyperparathyroidism (HCC) Primary hyperparathyroidism Obstructive sleep apnea Obstructive sleep apnea (adult) (pediatric) Benign hypertensive heart disease with CHF, NYHA class 2 (HCC) Benign hypertensive heart disease with heart failure Chronic respiratory failure with hypoxia (HCC) Chronic respiratory failure Debility Debility, unspecified Diaphragmatic hernia without obstruction and without gangrene Deep vein thrombosis (DVT) of proximal vein of left lower extremity, unspecified chronicity (HCC) Dysthymia Dysthymic disorder Gastroesophageal reflux disease without esophagitis Esophageal reflux Type 2 diabetes mellitus with peripheral neuropathy (HCC) Liver disease Unspecified disorder of liver Former smoker Personal history of tobacco use, presenting hazards to health Pressure injury of skin of thigh, unspecified injury stage, unspecified laterality Obesity, Class III, BMI >= 40 Morbid obesity Diffuse myofascial pain syndrome Mylagia and myositis, unspecified [facility] Diagnosis Pre-operative examination- Primary Preoperative examination, unspecified Primary hyperparathyroidism (HCC) Primary hyperparathyroidism Obstructive sleep apnea Obstructive sleep apnea (adult) (pediatric) Benign hypertensive heart disease with CHF, NYHA class 2 (HCC) Benign hypertensive heart disease with heart failure Chronic respiratory failure with hypoxia (HCC) Chronic respiratory failure Debility Debility, unspecified Diaphragmatic hernia without obstruction and without gangrene Deep vein thrombosis (DVT) of proximal vein of left lower extremity, unspecified chronicity (HCC) Dysthymia Dysthymic disorder Gastroesophageal reflux disease without esophagitis Esophageal reflux Type 2 diabetes mellitus with peripheral neuropathy (HCC) Liver disease Unspecified disorder of liver Former smoker Personal history of tobacco use, presenting hazards to health Pressure injury of skin of thigh, unspecified injury stage, unspecified laterality Obesity, Class III, BMI >= 40 Morbid obesity BMI 50.0-59.9, adult (HCC)- Primary Body Mass Index 50.0-59.9, adult DDD (degenerative disc disease), cervical Degeneration of cervical intervertebral disc Diffuse myofascial pain syndrome Mylagia and myositis, unspecified Bilateral primary osteoarthritis of knee [facility] Diagnosis Pre-operative examination- Primary Preoperative examination, unspecified Primary hyperparathyroidism (HCC) Primary hyperparathyroidism Obstructive sleep apnea Obstructive sleep apnea (adult) (pediatric) Benign hypertensive heart disease with CHF, NYHA class 2 (HCC) Benign hypertensive heart disease with heart failure Chronic respiratory failure with hypoxia (HCC) Chronic respiratory failure Debility Debility, unspecified Diaphragmatic hernia without obstruction and without gangrene Deep vein thrombosis (DVT) of proximal vein of left lower extremity, unspecified chronicity (HCC) Dysthymia Dysthymic disorder Gastroesophageal reflux disease without esophagitis Esophageal reflux Type 2 diabetes mellitus with peripheral neuropathy (HCC) Liver disease Unspecified disorder of liver Former smoker Personal history of tobacco use, presenting hazards to health Pressure injury of skin of thigh, unspecified injury stage, unspecified laterality Obesity, Class III, BMI >= 40 Morbid obesity Abnormal toxicological findings- Primary Nonspecific abnormal toxicological findings [facility] Diagnosis Pre-operative examination- Primary Preoperative examination, unspecified Primary hyperparathyroidism (HCC) Primary hyperparathyroidism Obstructive sleep apnea Obstructive sleep apnea (adult) (pediatric) Benign hypertensive heart disease with CHF, NYHA class 2 (HCC) Benign hypertensive heart disease with heart failure Chronic respiratory failure with hypoxia (HCC) Chronic respiratory failure Debility Debility, unspecified Diaphragmatic hernia without obstruction and without gangrene Deep vein thrombosis (DVT) of proximal vein of left lower extremity, unspecified chronicity (HCC) Dysthymia Dysthymic disorder Gastroesophageal reflux disease without esophagitis Esophageal reflux Type 2 diabetes mellitus with peripheral neuropathy (HCC) Liver disease Unspecified disorder of liver Former smoker Personal history of tobacco use, presenting hazards to health Pressure injury of skin of thigh, unspecified injury stage, unspecified laterality Obesity, Class III, BMI >= 40 Morbid obesity BENIGN HYPERTENSION Essential hypertension, benign [facility] Diagnosis Pre-operative examination- Primary Preoperative examination, unspecified Primary hyperparathyroidism (HCC) Primary hyperparathyroidism Obstructive sleep apnea Obstructive sleep apnea (adult) (pediatric) Benign hypertensive heart disease with CHF, NYHA class 2 (HCC) Benign hypertensive heart disease with heart failure Chronic respiratory failure with hypoxia (HCC) Chronic respiratory failure Debility Debility, unspecified Diaphragmatic hernia without obstruction and without gangrene Deep vein thrombosis (DVT) of proximal vein of left lower extremity, unspecified chronicity (HCC) Dysthymia Dysthymic disorder Gastroesophageal reflux disease without esophagitis Esophageal reflux Type 2 diabetes mellitus with peripheral neuropathy (HCC) Liver disease Unspecified disorder of liver Former smoker Personal history of tobacco use, presenting hazards to health Pressure injury of skin of thigh, unspecified injury stage, unspecified laterality Obesity, Class III, BMI >= 40 Morbid obesity NO SHOW- Primary [facility]* Diagnosis Pre-operative examination- Primary Preoperative examination, unspecified Primary hyperparathyroidism (HCC) Primary hyperparathyroidism Obstructive sleep apnea Obstructive sleep apnea (adult) (pediatric) Benign hypertensive heart disease with CHF, NYHA class 2 (HCC) Benign hypertensive heart disease with heart failure Chronic respiratory failure with hypoxia (HCC) Chronic respiratory failure Debility Debility, unspecified Diaphragmatic hernia without obstruction and without gangrene Deep vein thrombosis (DVT) of proximal vein of left lower extremity, unspecified chronicity (HCC) Dysthymia Dysthymic disorder Gastroesophageal reflux disease without esophagitis Esophageal reflux Type 2 diabetes mellitus with peripheral neuropathy (HCC) Liver disease Unspecified disorder of liver Former smoker Personal history of tobacco use, presenting hazards to health Pressure injury of skin of thigh, unspecified injury stage, unspecified laterality Obesity, Class III, BMI >= 40 Morbid obesity Obstructive sleep apnea Obstructive sleep apnea (adult) (pediatric) Restless legs syndrome Restless legs syndrome (RLS) [facility] Diagnosis Pre-operative examination- Primary Preoperative examination, unspecified Primary hyperparathyroidism (HCC) Primary hyperparathyroidism Obstructive sleep apnea Obstructive sleep apnea (adult) (pediatric) Benign hypertensive heart disease with CHF, NYHA class 2 (HCC) Benign hypertensive heart disease with heart failure Chronic respiratory failure with hypoxia (HCC) Chronic respiratory failure Debility Debility, unspecified Diaphragmatic hernia without obstruction and without gangrene Deep vein thrombosis (DVT) of proximal vein of left lower extremity, unspecified chronicity (HCC) Dysthymia Dysthymic disorder Gastroesophageal reflux disease without esophagitis Esophageal reflux Type 2 diabetes mellitus with peripheral neuropathy (HCC) Liver disease Unspecified disorder of liver Former smoker Personal history of tobacco use, presenting hazards to health Pressure injury of skin of thigh, unspecified injury stage, unspecified laterality Obesity, Class III, BMI >= 40 Morbid obesity Type 2 diabetes mellitus with peripheral neuropathy (HCC)- Primary Pain disorder with psychological factors Psychogenic pain, site unspecified Essential hypertension, benign Benign hypertensive heart disease with CHF, NYHA class 2 (HCC) Benign hypertensive heart disease with heart failure Obstructive sleep apnea Obstructive sleep apnea (adult) (pediatric) Gastroesophageal reflux disease without esophagitis Esophageal reflux Primary hyperparathyroidism (HCC) Primary hyperparathyroidism Deep vein thrombosis (DVT) of proximal vein of left lower extremity, unspecified chronicity (HCC) Degeneration of intervertebral disc of lumbar region, unspecified whether pain present Morbid obesity (HCC) Morbid obesity Anxiety state Anxiety state, unspecified Debility Debility, unspecified Chronic respiratory failure with hypoxia (HCC) Chronic respiratory failure DDD (degenerative disc disease), cervical Degeneration of cervical intervertebral disc Lumbar facet arthropathy Lumbosacral spondylosis without myelopathy Diffuse myofascial pain syndrome Mylagia and myositis, unspecified Encounter for screening mammogram for breast cancer Screening for colon cancer Special screening for malignant neoplasms, colon Restless legs syndrome Restless legs syndrome (RLS) documented in this [facility]* Diagnosis Pre-operative examination- Primary Preoperative examination, unspecified Primary hyperparathyroidism (HCC) Primary hyperparathyroidism Obstructive sleep apnea Obstructive sleep apnea (adult) (pediatric) Benign hypertensive heart disease with CHF, NYHA class 2 (HCC) Benign hypertensive heart disease with heart failure Chronic respiratory failure with hypoxia (HCC) Chronic respiratory failure Debility Debility, unspecified Diaphragmatic hernia without obstruction and without gangrene Deep vein thrombosis (DVT) of proximal vein of left lower extremity, unspecified chronicity (HCC) Dysthymia Dysthymic disorder Gastroesophageal reflux disease without esophagitis Esophageal reflux Type 2 diabetes mellitus with peripheral neuropathy (HCC) Liver disease Unspecified disorder of liver Former smoker Personal history of tobacco use, presenting hazards to health Pressure injury of skin of thigh, unspecified injury stage, unspecified laterality Obesity, Class III, BMI >= 40 Morbid obesity Mixed hyperlipidemia [facility] Diagnosis Pre-operative examination- Primary Preoperative examination, unspecified Primary hyperparathyroidism (HCC) Primary hyperparathyroidism Obstructive sleep apnea Obstructive sleep apnea (adult) (pediatric) Benign hypertensive heart disease with CHF, NYHA class 2 (HCC) Benign hypertensive heart disease with heart failure Chronic respiratory failure with hypoxia (HCC) Chronic respiratory failure Debility Debility, unspecified Diaphragmatic hernia without obstruction and without gangrene Deep vein thrombosis (DVT) of proximal vein of left lower extremity, unspecified chronicity (HCC) Dysthymia Dysthymic disorder Gastroesophageal reflux disease without esophagitis Esophageal reflux Type 2 diabetes mellitus with peripheral neuropathy (HCC) Liver disease Unspecified disorder of liver Former smoker Personal history of tobacco use, presenting hazards to health Pressure injury of skin of thigh, unspecified injury stage, unspecified laterality Obesity, Class III, BMI >= 40 Morbid obesity Super obesity Morbid obesity DDD (degenerative disc disease), lumbar Degeneration of lumbar or lumbosacral intervertebral disc documented in this encounter [facility]* Diagnosis Pre-operative examination- Primary Preoperative examination, unspecified Primary hyperparathyroidism (HCC) Primary hyperparathyroidism Obstructive sleep apnea Obstructive sleep apnea (adult) (pediatric) Benign hypertensive heart disease with CHF, NYHA class 2 (HCC) Benign hypertensive heart disease with heart failure Chronic respiratory failure with hypoxia (HCC) Chronic respiratory failure Debility Debility, unspecified Diaphragmatic hernia without obstruction and without gangrene Deep vein thrombosis (DVT) of proximal vein of left lower extremity, unspecified chronicity (HCC) Dysthymia Dysthymic disorder Gastroesophageal reflux disease without esophagitis Esophageal reflux Type 2 diabetes mellitus with peripheral neuropathy (HCC) Liver disease Unspecified disorder of liver Former smoker Personal history of tobacco use, presenting hazards to health Pressure injury of skin of thigh, unspecified injury stage, unspecified laterality Obesity, Class III, BMI >= 40 Morbid obesity Obstructive sleep apnea- Primary Obstructive sleep apnea (adult) (pediatric) documented in this encounter [facility] note* Diagnosis Pre-operative examination- Primary Preoperative examination, unspecified Primary hyperparathyroidism (HCC) Primary hyperparathyroidism Obstructive sleep apnea Obstructive sleep apnea (adult) (pediatric) Benign hypertensive heart disease with CHF, NYHA class 2 (HCC) Benign hypertensive heart disease with heart failure Chronic respiratory failure with hypoxia (HCC) Chronic respiratory failure Debility Debility, unspecified Diaphragmatic hernia without obstruction and without gangrene Deep vein thrombosis (DVT) of proximal vein of left lower extremity, unspecified chronicity (HCC) Dysthymia Dysthymic disorder Gastroesophageal reflux disease without esophagitis Esophageal reflux Type 2 diabetes mellitus with peripheral neuropathy (HCC) Liver disease Unspecified disorder of liver Former smoker Personal history of tobacco use, presenting hazards to health Pressure injury of skin of thigh, unspecified injury stage, unspecified laterality Obesity, Class III, BMI >= 40 Morbid obesity Diabetes mellitus type 2 with ketoacidosis, uncontrolled (HCC) Type II or unspecified type diabetes mellitus with ketoacidosis, uncontrolled documented in this encounter [facility] note* Diagnosis Pre-operative examination- Primary Preoperative examination, unspecified Primary hyperparathyroidism (HCC) Primary hyperparathyroidism Obstructive sleep apnea Obstructive sleep apnea (adult) (pediatric) Benign hypertensive heart disease with CHF, NYHA class 2 (HCC) Benign hypertensive heart disease with heart failure Chronic respiratory failure with hypoxia (HCC) Chronic respiratory failure Debility Debility, unspecified Diaphragmatic hernia without obstruction and without gangrene Deep vein thrombosis (DVT) of proximal vein of left lower extremity, unspecified chronicity (HCC) Dysthymia Dysthymic disorder Gastroesophageal reflux disease without esophagitis Esophageal reflux Type 2 diabetes mellitus with peripheral neuropathy (HCC) Liver disease Unspecified disorder of liver Former smoker Personal history of tobacco use, presenting hazards to health Pressure injury of skin of thigh, unspecified injury stage, unspecified laterality Obesity, Class III, BMI >= 40 Morbid obesity Diabetes mellitus type 2 with ketoacidosis, uncontrolled (HCC) Type II or unspecified type diabetes mellitus with ketoacidosis, uncontrolled documented in this encounter [facility]* Diagnosis Pre-operative examination- Primary Preoperative examination, unspecified Primary hyperparathyroidism (HCC) Primary hyperparathyroidism Obstructive sleep apnea Obstructive sleep apnea (adult) (pediatric) Benign hypertensive heart disease with CHF, NYHA class 2 (HCC) Benign hypertensive heart disease with heart failure Chronic respiratory failure with hypoxia (HCC) Chronic respiratory failure Debility Debility, unspecified Diaphragmatic hernia without obstruction and without gangrene Deep vein thrombosis (DVT) of proximal vein of left lower extremity, unspecified chronicity (HCC) Dysthymia Dysthymic disorder Gastroesophageal reflux disease without esophagitis Esophageal reflux Type 2 diabetes mellitus with peripheral neuropathy (HCC) Liver disease Unspecified disorder of liver Former smoker Personal history of tobacco use, presenting hazards to health Pressure injury of skin of thigh, unspecified injury stage, unspecified laterality Obesity, Class III, BMI >= 40 Morbid obesity Pain disorder with psychological factors Psychogenic pain, site unspecified DDD (degenerative disc disease), cervical Degeneration of cervical intervertebral disc Lumbar facet arthropathy Lumbosacral spondylosis without myelopathy Diffuse myofascial pain syndrome Mylagia and myositis, unspecified DDD (degenerative disc disease), lumbar Degeneration of lumbar or lumbosacral intervertebral disc [facility]* Diagnosis Pre-operative examination- Primary Preoperative examination, unspecified Primary hyperparathyroidism (HCC) Primary hyperparathyroidism Obstructive sleep apnea Obstructive sleep apnea (adult) (pediatric) Benign hypertensive heart disease with CHF, NYHA class 2 (HCC) Benign hypertensive heart disease with heart failure Chronic respiratory failure with hypoxia (HCC) Chronic respiratory failure Debility Debility, unspecified Diaphragmatic hernia without obstruction and without gangrene Deep vein thrombosis (DVT) of proximal vein of left lower extremity, unspecified chronicity (HCC) Dysthymia Dysthymic disorder Gastroesophageal reflux disease without esophagitis Esophageal reflux Type 2 diabetes mellitus with peripheral neuropathy (HCC) Liver disease Unspecified disorder of liver Former smoker Personal history of tobacco use, presenting hazards to health Pressure injury of skin of thigh, unspecified injury stage, unspecified laterality Obesity, Class III, BMI >= 40 Morbid obesity Benign hypertensive heart disease with CHF, NYHA class 2 (HCC)- Primary Benign hypertensive heart disease with heart failure SVT (supraventricular tachycardia) (HCC) Other specified cardiac dysrhythmias Obstructive sleep apnea Obstructive sleep apnea (adult) (pediatric) Gastroesophageal reflux disease without esophagitis Esophageal reflux S/P parathyroidectomy Other postprocedural status Major depressive disorder, recurrent episode, moderate (HCC) Major depressive disorder, recurrent episode, moderate DDD (degenerative disc disease), cervical Degeneration of cervical intervertebral disc Degeneration of intervertebral disc of lumbar region, unspecified whether pain present Bilateral primary osteoarthritis of knee Chronic respiratory failure with hypoxia (HCC) Chronic respiratory failure Type 2 diabetes mellitus with peripheral neuropathy (HCC) Morbid obesity with BMI of 70 and over, adult (HCC) Morbid obesity History of DVT (deep vein thrombosis) Personal history of venous thrombosis and embolism documented in this encounter [facility] for referral (narrative)* Diagnostic Procedure Only (Routine) - Pending Review Specialty Diagnoses / Procedures Referred By Joesph orellana Referred To Contact [facility] Diagnoses Encounter for screening mammogram for breast cancer Procedures JOSÉ ANTONIO SCREENING SCREENING MAMMOGRAPHY BI 2-VIEW BREAST INC CAD Nehemiah Herbert MD [address] [place] [address] [facility] [address] [place] [address] Referral ID Status Reason Start Date Expiration Date Visits Requested Visits Authorized [id number] Pending Review Auto-Generat ed Referral 05/18/2021 06/17/2022 1 1 [facility] for referral (narrative)* Diagnostic Procedure Only (Routine) - Closed Specialty Diagnoses / Procedures Referred By Joesph orellana Referred To Contact [facility] FUNCTIONAL IMAGING Diagnoses Hypercalcemia Procedures NM PARATHYROID W SPECT/CT PARATHYROID IMAGING W/TOMOGRAPHIC SPECT & CT Silvia Fernández MD [address] [place] [address] Molecular & Functional Imaging [address] [place] [address] Referral ID Status Reason Start Date Expiration Date V isits Requested Visits Authorized [id number] Closed Auto-Generate d Referral 12/31/2020 01/30/2022 1 1 [facility] for referral (narrative)* Diagnostic Procedure Only (Routine) - Pending Review Specialty Diagnoses / Procedures Referred By Joesph orellana Referred To Contact [facility] Diagnoses Encounter for screening mammogram for breast cancer Procedures JOSÉ ANTONIO SCREENING SCREENING MAMMOGRAPHY BI 2-VIEW BREAST INC CAD Sanjay Abbasi PA-C [address] [place] [address] [facility] [address] [place] [address] Referral ID Status Reason Start Date Expiration Date Visits Requested Visits Authorized [id number] Pending Review Auto-Generat ed Referral 04/11/2023 05/10/2024 1 1 [facility] for referral (narrative)No reason for referral information [facility] Work Phone: Reason for visit Narrative* Diagnostic Procedure Only (Routine) - Closed Specialty Diagnoses / Procedures Referred By Joesph orellana Referred To Contact MOLECULAR & FUNCTIONAL IMAGING Diagnoses Hypercalcemia Procedures NM PARATHYROID W SPECT/CT PARATHYROID IMAGING W/TOMOGRAPHIC SPECT & CT Silvia Fernández MD [address] [place] [address] Molecular & Functional Imaging [address] [place] [address] Referral ID Status Reason Start Date Expiration Date V isits Requested Visits Authorized [id number] Closed Auto-Generate d Referral 12/31/2020 01/30/2022 1 1 [facility] Summary Purpose Family History No Family History Records Found Relationship Condition Age at Onset Recorded Date/T yogi mother Hypertension Unknown Cerebrovascular accident (CVA) Unknown Diabetes mellitus Unknown Cardiac disease Unknown father Hypertension Unknown Chronic obstructive pulmonary disease Unk nown sister Hypertension Unknown brother Hypertension Unknown Coronary artery disease Unknown History of coronary artery bypass surgery 48 Advance Directives No Advanced Directives Records FoundDocuments on File Type Date Recorded Patient Puppet Master Expl anation Advance Directives and Living Will Power of Biofuels Technology Development Manager Latest Code Status on File Code Status Date Activated Date Inactivated Comments Full Code 12/04/2018 1:44 PM Full Code 12/04/2018 6:10 AM 12/04/2018 1:29 PM Full Code 11/24/2016 7:37 AM 11/24/2016 4:56 PM Latest Code Status on File Code Status Date Activated Date Inactivated Comments Full Code 11/24/2016 7:37 AM 11/24/2016 4:56 PM Documents on File Type Date Recorded Patient Puppet Master Expl anation ACP-Advance Directive ACP-Power of Biofuels Technology Development Manager Latest Code Status on File Code Status Date Activated Date Inactivated Comments Full Code 12/04/2018 1:44 PM 12/05/2018 3:45 PM Documents on File Type Date Recorded Patient Puppet Master Expl anation Advance Directive(s) 06/18/2018 10:36 AM Documents on File Type Date Recorded Patient Puppet Master Expl anation Advance Directive(s) 06/18/2018 10:36 AM Documents on File Type Date Recorded Patient Puppet Master Expl anation Advance Directive(s) 07/08/2021 10:20 AM Advance Directive(s) 06/18/2018 10:36 AM Advance Directive Response Recorded Date/ Time Name of Medical Power of Biofuels Technology Development Manager Adela Khan March 02, 2022 2:59pm Advance Directives No December 02, 2014 11:55am Living Will Yes March 02 2:59pm Power of Biofuels Technology Development Manager Yes March 02, 2022 2:59pm Advance Directive Response Recorded Date/ Time Name of Medical Power of Biofuels Technology Development Manager Adela Khan March 02, 2022 2:59pm Advance Directives No December 02, 2014 11:55am Living Will No March 07 4:56pm Power of Biofuels Technology Development Manager No March 07, 2022 4:56pm Documents on File Type Date Recorded Patient Puppet Master Expl anation Advance Directive(s) 03/08/2022 8:02 AM Documents on File Type Date Recorded Patient Puppet Master Expl anation Advance Directive(s) 03/08/2022 8:02 AM Advance Directive Response Recorded Date/ Time Advance Directives No December 02, 2014 12:55pm Living Will No March 07 5:56pm Power of Biofuels Technology Development Manager No March 07, 2022 5:56pm Advance Directive Response Recorded Date/ Time Living Will No March 07 4:56pm Power of Biofuels Technology Development Manager No March 07, 2022 4:56pm Advance Directives No December 02, 2014 11:55am Hospital Course * Paul Olea, BRIANA - [employer] ROUSTABOUT - 12/05/2018 9:08 AM EDT Patient ID: Wilton Khan Patient's PCP: Nehemiah Herbert MD Admit Date: 12/04/2018 Discharge Date: 12/05/18 Admitting Physician: Stuart Rowell MD Discharge Physician: Stuart Rowell MD Active Discharge Diagnoses: Primary Problem Recurrent incisional hernia Hospital Problems Active Hospital Problems Diagnosis Date Noted Recurrent incisional hernia [K43.2] 12/04/2018 The patient was seen and examined on day of discharge and this discharge summary is in conjunction with any daily progress note from day of discharge. Code Status: Full Code Hospital Course: This is a 58 y/o Morbidly Obese Female that presents to the hospital on 12/04/18 for planned surgical procedure. On that day Dr. Stuart Rowell performed recurrent incisional herniorrhaphy with mesh. The patient tolerated the procedure well and was sent to the floor for continued postoperative care. Consulted IMS for medical mgmt of chronic medical issues including DM. Diet was advanced and tolerated. Pain controlled with PO pain medication. Patient discharged in stable condition.Follow up with Dr. Rowell in 2 weeks. Consult(s): IP CONSULT TO HOSPITALIST Procedure(s): IP CONSULT TO HOSPITALIST Disposition: Home Discharged Condition: Stable Follow Up: Stuart Rowell MD [address] [place] [address], [address] [facility] [phone] In 2 weeks Staple removal Diet: DIET CARB CONTROL; Carb Control: 4 carb choices (60 gms)/meal Discharge Medications: Medication List START taking these medications sulfamethoxazole-trimethoprim 800-160 MG per tablet Commonly known as: BACTRIM DS;SEPTRA DS Take 1 tablet by mouth 2 times daily for 5 days CHANGE how you take these medications HYDROcodone-acetaminophen 5-325 MG per tablet Commonly known as: NORCO Take 1 tablet by mouth every 6 hours as needed for Pain for up to 5 days. Intended supply: 5 days. Take lowest dose possible to manage pain What changed: See the new instructions. CONTINUE taking these medications ARIPiprazole 10 MG tablet Commonly known as: ABILIFY cetirizine 10 MG tablet Commonly known as: ZYRTEC DULoxetine 60 MG extended release capsule Commonly known as: CYMBALTA ELIQUIS 5 MG Tabs tablet Generic drug: apixaban FLEXERIL PO gabapentin 300 MG capsule Commonly known as: NEURONTIN Take 1 capsule by mouth 2 times daily for 60 days. Handicap Placard Misc by Does not apply route DX ARTHRITIS 3 YEARS nystatin [id number] UNIT/GM cream Commonly known as: MYCOSTATIN ranitidine 150 MG tablet Commonly known as: ZANTAC Take 1 tablet by mouth 2 times daily spironolactone 25 MG tablet Commonly known as: ALDACTONE Take 1 tablet by mouth daily traZODone 50 MG tablet Commonly known as: DESYREL TRUE METRIX BLOOD GLUCOSE TEST strip Generic drug: blood glucose test strips TEST twice a day vitamin D 2000 units Caps capsule Where to Get Your Medications These medications were sent to [address] [phone] - F [phone] [place] [address] sulfamethoxazole-trimethoprim 800-160 MG per tablet You can get these medications from any pharmacy Bring a paper prescription for each of these medications HYDROcodone-acetaminophen 5-325 MG per tablet Thank you Dr. Nehemiah Herbert MD for the opportunity to be involved in this patient's care. documented in this encounter Discharge Instructions * Discharge Instr - Diet* Kim Overton RN - 12/05/2018 12:18 PM EDT ? Good nutrition is important when healing from an illness, injury, or surgery. Follow any nutrition recommendations given to you during your hospital stay. ? If you were given an oral nutrition supplement while in the hospital, continue to take this supplement at home. You can take it with meals, in-between meals, and/or before bedtime. These supplements can be purchased at most local grocery stores, pharmacies, and chain [employer]-stores. ? If you have any questions about your diet or nutrition, call the hospital and ask for the dietitian. Carb control * Additional Instructions* Paul Olea APRN - CNP - 12/05/2018 Restart Olivia tomorrow. Pain medication. Please Do not take pain medication from pain management and use our pain medication 1 tablet every 6 hours as needed. You may resume your usual diet Carb Control No heavy lifting or strenuous activity. Resume normal activity in 4 weeks. You may shower/bathe. Cleanse incisions daily with peroxide/Neosporin. Call our office ([phone]) for: -excessive bleeding/swelling of incision -temperature above 100.5 degrees F. -severe, continuous pain not relieved with medication -any inability to urinate May drive in 5 days. For any other problems call [phone] or go to the hospital emergency dept. Call for an appointment ([phone]) in 2 weeks. documented in this encounter* Discharge Instr - ZENAIDA* Dilia Unger RN - 11/25/2018 10:39 AM EDT Continuity of Care Form Patient Name: Wilton Khan : 1960 Admit date: 11/25/2018 Discharge date: Code Status Order: Prior Advance Directives: Advance Care Flowsheet Documentation Date/Time Healthcare Directive Type of Healthcare Directive Copy in Chart Healthcare Agent Appointed Healthcare Agent's Name Healthcare Agent's Phone Number 11/25/18 [phone] No, patient does not have an advance directive for healthcare treatment -- -- -- -- -- Admitting Physician: No admitting provider for patient encounter. PCP: Nehemiah Herbert MD Discharging Nurse: Discharging Hospital Unit/Room#: No information available for this encounter. Discharging Unit Phone Number: Emergency Contact: Extended Emergency Contact Information Primary Emergency Contact: Dario Thomson [facility] Relation: Brother/Sister Secondary Emergency Contact: Adela Khan [facility] Relation: Brother/Sister Past Surgical History: Past Surgical History: Procedure Laterality Date CHOLECYSTECTOMY, LAPAROSCOPIC 05/15/2008 COLONOSCOPY DIAGNOSTIC CARDIAC CERTIFIED ORTHOTIC FITTER PROCEDURE 2011 DILATION AND CURETTAGE OF UTERUS ENDOSCOPY, COLON, DIAGNOSTIC EYE SURGERY Bilateral cataracts VENTRAL HERNIA REPAIR 11/24/2016 Immunization History: Immunization History Administered Date(s) Administered Influenza, Quadv, IM, (6 mo and older Fluzone, Flulaval, Fluarix and 3 yrs and older Afluria) 11/20/2016 Active Problems: Patient Active Problem List Diagnosis Code Hypertension I10 SVT (supraventricular tachycardia) ([facility]) I47.1 Normal coronary arteries Z03.89 Palpitations R00.2 Depression F32.9 Low back pain M54.5 HTN (hypertension) I10 Diabetes mellitus (HCC) E11.9 Sleep apnea G47.30 Diabetes mellitus (HCC) E11.9 Ventral hernia without obstruction or gangrene K43.9 Chronic pain G89.29 Isolation/Infection: Isolation No Isolation Nurse Assessment: Last Vital Signs: BP (!) 159/87 Pulse 94 Temp 98.2 F (36.8 C) (Temporal) Resp 18 Ht 4' 11 (1.499 m) Wt (!) 344 lb 9.6 oz (156.3 kg) SpO2 95% BMI 69.60 kg/m Last documented pain score (0-10 scale): Pain Level: 4 Last Weight: Wt Readings from Last 1 Encounters: 11/25/18 (!) 344 lb 9.6 oz (156.3 kg) Mental Status: {IP PT MENTAL STATUS:} IV Access: { ZENAIDA IV ACCESS:[id number]} Nursing Mobility/ADLs: Walking {CHP DME ADLs:[id number]} Transfer {CHP DME ADLs:[id number]} Bathing {CHP DME ADLs:[id number]} Dressing {CHP DME ADLs:725890007} Toileting {CHP DME ADLs:541511812} Feeding {CHP DME ADLs:185855799} Medical Surgery Nurse {CHP DME ADLs:152448064} Med Delivery { ZENAIDA MED Delivery:936587251} Wound Care Documentation and Therapy: Incision 11/24/16 Abdomen (Active) Number of days: 730 Elimination: Continence: Bowel: {YES / NO:} Bladder: {YES / NO:} Urinary Catheter: {Urinary Catheter:271424058} Colostomy/Ileostomy/Ileal Conduit: {YES / NO:} Date of Last BM: No intake or output data in the 24 hours ending 11/25/18 1039 No intake/output data recorded. Safety Concerns: { ZENAIDA Safety Concerns:758312167} Impairments/Disabilities: { ZENAIDA Impairments/Disabilities:305060487} Nutrition Therapy: Current Nutrition Therapy: { ZENAIDA Diet List:471127443} Routes of Feeding: {CHP DME Other Feedings:754420468} Liquids: {Preforms Laminator liquid thickness:11195} Daily Fluid Restriction: {CHP DME Yes amt example:247889305} Last Modified Barium Swallow with Video (Video Swallowing Test): {Done Not Done Date:} Treatments at the Time of Hospital Discharge: Respiratory Treatments: Oxygen Therapy: {Therapy; copd oxygen:06829} Ventilator: { CC Vent List:278415130} Rehab Therapies: {THERAPEUTIC INTERVENTION:9554933946} Weight Bearing Status/Restrictions: { CC Weight Bearin} Other Medical Equipment (for information only, NOT a DME order): {EQUIPMENT:368505300} Other Treatments: Patient's personal belongings (please select all that are sent with patient): {P DME Belongings:293599257} RN SIGNATURE: {Esignature:552922172} CASE MANAGEMENT/SOCIAL WORK SECTION Inpatient Status Date: Readmission Risk Assessment Score: Readmission Risk Risk of Unplanned Readmission: 0 Discharging to Facility/ Agency Name: Address: Phone: Fax: Dialysis Facility (if applicable) Name: Address: Dialysis Schedule: Phone: Fax: Furniture Servicer/Vaccine Specialist signature: {Esignature:645199070} PHYSICIAN SECTION Prognosis: {Prognosis:9384594198} Condition at Discharge: { Patient Condition:396883872} Rehab Potential (if transferring to Rehab): {Prognosis:9332801809} Recommended Labs or Other Treatments After Discharge: Physician Certification: I certify the above information and transfer of Wilton Khan is necessary for the continuing treatment of the diagnosis listed and that she requires {Admit to Appropriate Level of Care:97025} for {GREATER/LESS:166620554} 30 days. Update Admission H&P: {CHP DME Changes in HandP:475156411} PHYSICIAN SIGNATURE: {Esignature:318245709} * Additional Instructions* Dilia Unger RN - 11/25/2018 ..PLEASE BE AWARE THAT VISITORS UNDER THE AGE OF 12 AND FOOD/DRINKS ARE NO LONGER PERMITTED IN THE SAME DAY SURGERY DEPARTMENT. IF YOU USE A CPAP MACHINE OR RESCUE INHALER AT HOME PLEASE BRING THESE ITEMS WITH YOU THE DAY OF SURGERY. MEDICATION INSTRUCTIONS PRIOR TO SURGERY PLEASE BRING PROVIDED LIST BACK WITH YOU THE DAY OF SURGERY WITH DATE/TIME LAST DOSE OF MEDICATIONSTAKEN. MEDICATIONS TO HOLD STARTING NOW-vitamins, supplements, aspirin, nsaids MEDICATIONS THAT YOU SHOULD NOT TAKE THE MORNING OF SURGERY- creams, spironolactone MEDICATIONS THAT YOU SHOULD TAKE THE MORNING OF SURGERY- abilify, zyrtec, flexeril, cymbalta, gabapentin, norco, primadone, zantac, trazadone Will call with instructions for eliquis * Attachments The following attachments cannot be sent through Care Everywhere. * Abdominal Hernia Repair: Post-op (Togolese) * Abdominal Hernia Repair: Pre-op (Togolese) documented in this encounter History of Present Illness * Paul Olea APRN - LIZZIE - 12/05/2018 9:02 AM EDT Surgery Post Op Progress Note PATIENT NAME: Wilton Khan TODAY'S DATE: 12/05/2018 SUBJECTIVE: Patient resting comfortably in bed. Denies N/V. Tolerating FLD. Passing Flatus. Denies SOB. On O2. Does not wear at home. Uses bipap at nighttime. Pain controlled Yes Other Complaints NO Flatus/BM/or Ostomy function Yes OBJECTIVE: VITALS: BP (!) 112/56 Pulse 72 Temp 97.6 F (36.4 C) (Temporal) Resp 18 Ht 4' 11 (1.499 m) Wt (!) 344 lb (156 kg) SpO2 99% BMI 69.48 kg/m INTAKE/OUTPUT: I/O last 3 completed shifts: In: 3192 [I.V.:3192] Out: 1105 [Urine:1100; Blood:5] No intake/output data recorded. CONSTITUTIONAL: awake and alert ABDOMEN: soft INCISION: clean, dry, no drainage, Metter intact. No erythema. Data: CBC: Recent Labs 12/05/18 0507 WBC 9.8 HGB 12.7 HCT 37.6 PLT 206 BMP: Recent Labs 12/05/18 0507 NA 139 K 4.2 CL 104 CO2 33* BUN 12 CREATININE 0.48* GLUCOSE 187* Hepatic: Recent Labs 12/05/18 0507 AST 18 ALT 26 BILITOT 0.8 ALKPHOS 101 ASSESSMENT AND PLAN: Ms. Khan is A 58 y/o morbidly obese F s/p recurrent incisional herniorrhaphy with mesh POD1 - Carb control diet - Encourage ambulation - IMS on for medical mgmt. - Wean off O2 - PRN pain nausea medication - Disposition: Will likely be d/c today. Dr. Rowell to see. Paul Olea, WALLP[employer]ER [employer] - [employer]OUST[employer]OUT * Dimple Zhang RN - 12/04/2018 6:47 AM EDT Skin intact per pt documented in this encounter* Dilia Unger RN - 11/25/2018 12:17 PM EDT Spoke with Dr. Herbert office and requested progress note or scanned in order sheet for patient to hold eliquis for surgery 12/04/18- will fax over. documented in this encounter Assessments Diagnosis Post-op pain- Primary Other acute postoperative pain S/P recurrent ventral herniorrhaphy Other postprocedural status Reason for Referral Specialty Diagnoses / Procedures Referred By Joesph orellana Referred To Contact Diagnoses JEREMÍAS (obstructive sleep apnea) Procedures CONSULT TO SLEEP MEDICINE - ADULT OFFICE/OUTPATIENT [facility] 60-74 MINUTES Nehemiah Herbert MD [address] [place] [address] Referral ID Status Reason Start Date Expiration Date Visits Requested Visits Authorized [id number] Authorized PCP Requested Referral 05/20/2021 05/20/2022 1 1 Specialty Diagnoses / Procedures Referred By Joesph orellana Referred To Contact Diagnoses Primary hyperparathyroidism (HCC) Procedures IN PERSON CONSULT TO PACC Jean Bhagat MD [address] [place] [address] Referral ID Status Reason Start Date Expiration Date Visits Requested Visits Authorized [id number] Ref Not Required PCP Requested Referral 06/27/2021 09/22/2021 1 1 Specialty Diagnoses / Procedures Referred By Contac t Referred To Contact Diagnoses Type 2 diabetes mellitus with peripheral neuropathy (HCC) Nehemiah Herbert MD [address] [place] [address] Referral ID Status Reason Start Date Expiration Date Visits Re quested Visits Authorized [id number] Closed 1 1 Specialty Diagnoses / Procedures Referred By Contac t Referred To Contact Neurology Diagnoses Tremor Procedures CONSULT TO NEUROLOGY OFFICE/OUTPATIENT [facility] 60-74 MINUTES Nehemiah Herbert MD [address] [place] [address] Referral ID Status Reason Start Date Expiration Date Visits Requested Visits Authorized [id number] Authorized PCP Requested Referral 02/15/2023 1 1 Specialty Diagnoses / Procedures Referred By Contac t Referred To Contact Diagnoses Type 2 diabetes mellitus with peripheral neuropathy (HCC) Sanjay Abbasi PA-C [address] [place] [phone] Referral ID Status Reason Start Date Expiration Date V isits Requested Visits Authorized [id number] Authorized 04/08/2022 05/08/2023 1 1 Specialty Diagnoses / Procedures Referred By Contac t Referred To Contact Ent - Otolaryngology Diagnoses Tongue lesion Procedures CONSULT TO ENT OFFICE/OUTPATIENT [facility] 60-74 MINUTES Nehemiah Herbert MD [address] [place] [address] Referral ID Status Reason Start Date Expiration Date Visits Requested Visits Authorized [id number] Authorized PCP Requested Referral 07/27/2022 07/27/2023 1 1 Specialty Diagnoses / Procedures Referred By Contac t Referred To Contact Pain Management Diagnoses Lumbar radiculopathy DDD (degenerative disc disease), lumbar DDD (degenerative disc disease), cervical Bilateral primary osteoarthritis of knee Procedures CONSULT TO PAIN MGT Nehemiah Herbert MD [address] [place] [address] Referral ID Status Reason Start Date Expiration Date Visits Requested Visits Authorized [id number] Ref Not Required PCP Requested Referral 07/27/2022 07/27/2023 1 1 Specialty Diagnoses / Procedures Referred By Contac t Referred To Contact XR IMAGING Diagnoses Lumbar radiculopathy DDD (degenerative disc disease), lumbar DDD (degenerative disc disease), cervical Bilateral primary osteoarthritis of knee Procedures XR LUMBAR GENERAL 3V AP/LAT/L5-S1 RADEX SPINE LUMBOSACRAL 2/3 VIEWS Nehemiah Herbert MD [address] [place] [address] Xr Imaging Referral ID Status Reason Start Date Expiration Date Visits Requested Visits Authorized [id number] Pending Review Auto-Generat ed Referral 07/27/2022 08/26/2023 1 1 Specialty Diagnoses / Procedures Referred By Contac t Referred To Contact Diagnoses Super obesity Nehemiah Herbert MD [address] [place] [address] Referral ID Status Reason Start Date Expiration Date Visits Re quested Visits Authorized [id number] Closed 1 1 Specialty Diagnoses / Procedures Referred By Contac t Referred To Contact Neurology Diagnoses Obstructive sleep apnea Procedures CONSULT TO NEUROLOGY OFFICE/OUTPATIENT [facility] 60 MINUTES Joi Markham, WALLP[employer]ER [employer] [address] [place] [address] Referral ID Status Reason Start Date Expiration Date Visits Requested Visits Authorized [id number] Authorized PCP Requested Referral 03/20/2024 03/13/2025 1 1 Medications Administered Section Inactive Administered Medications - up to 3 most recent administrations Medication Order MAR Action Action Date Dose Rate Site betamethasone acetate-betamethasone sodium phosphate 6 mg injection (CELESTONE) 6 mg, Injection - FOR ORTHO USE ONLY, ONE TIME INJECTION, 1 dose, Starting on Sun10/10/21 at 1230, Until Sun10/10/21 at 1230 Given 10/10/2021 12:30 PM EDT 6 mg Knee, Right lidocaine (PF) 10 mg/mL (1 %) 4 mL injection (XYLOCAINE) 4 mL, Injection - FOR ORTHO USE ONLY, ONE TIME INJECTION, 1 dose, Starting on Sun10/10/21 at 1230, Until Sun10/10/21 at 1230 Given 10/10/2021 12:30 PM EDT 4 mL Knee, Right Inactive Administered Medications - up to 3 most recent administrations Medication Order MAR Action Action Date Dose Rate Site betamethasone acetate-betamethasone sodium phosphate 6 mg injection (CELESTONE) 6 mg, Injection - FOR ORTHO USE ONLY, ONE TIME INJECTION, 1 dose, Starting on Anna 10/20/21 at 1408, Until Anna 10/20/21 at 1408 Given 10/20/2021 2:08 PM EDT 6 mg Knee, Left lidocaine (PF) 10 mg/mL (1 %) 4 mL injection (XYLOCAINE) 4 mL, Injection - FOR ORTHO USE ONLY, ONE TIME INJECTION, 1 dose, Starting on Sun10/20/21 at 1408, Until Anna 10/20/21 at 1408 Given 10/20/2021 2:08 PM EDT 4 mL Knee, Left Chief Complaint and Reason for Visit Chief Complaint INFLUENZA A, ? CELLU LITIS, ? UTI INFLUENZA A, ? CELLULITIS, ? UTI Reason for Visit Cellulitis of left l eg Cellulitis of right leg Influenza A Sepsis Diabetes mellitus, type II Morbid obesity Chief Complaint INFLUENZA A, ? CELLU LITIS, ? UTI INFLUENZA A, ? CELLULITIS, ? UTI INFLUENZA A, ? CELLULITIS, ? UTI INFLUENZA A, ? CELLULITIS, ? UTI Reason for Visit Cellulitis of left l eg Cellulitis of right leg Influenza A Sepsis Diabetes mellitus, type II Morbid obesity Chief Complaint INFLUENZA A, ? CELLU LITIS, ? UTI INFLUENZA A, ? CELLULITIS, ? UTI INFLUENZA A, ? CELLULITIS, ? UTI INFLUENZA A, ? CELLULITIS, ? UTI General illness Reason for Visit Cellulitis of left l eg Cellulitis of right leg Influenza A Sepsis Diabetes mellitus, type II Morbid obesity Chief Complaint wound wound Reason for Visit Morbid obesity with BMI of 70 and over, adult Pressure ulcer of upper thigh Chief Complaint wound wound wound wound wound Reason for Visit Morbid obesity with BMI of 70 and over, adult Pressure ulcer of upper thigh Morbid obesity with BMI of 70 and over, adult Pressure ulcer of upper thigh Chief Complaint Admit Date Pressure ulcer of unspecified hip, unsta geable December 31, 2023 1:11pm Pressure ulcer of unspecified hip, unsta geable January 14, 2024 10:30am Pressure ulcer of unspecified hip, unsta geable January 14, 2024 12:14pm CP April 25, 2024 9:23 am Reason for Visit Admit Date Immobility January 14, 2024 10:30am Morbid obesity with BMI of 70 and over, adult January 14, 2024 10:30am Pressure ulcer of upper thigh December 212023 10:30am Diabetes mellitus, type II December 10:30am Health Concerns Infection Onset Date Last Indicated Resolved Time COVID-19 Rule-Out 09/21/2022 09/21/2022 09/22/2022 11:51 AM EDT Infection Onset Date Last Indicated Resolved Time COVID-19 Rule-Out 09/21/2022 09/21/2022 09/22/2022 11:51 AM EDT COVID-19 Confirmed 09/21/2022 09/21/2022 Infection Onset Date Last Indicated Resolved Time COVID-19 Confirmed 09/21/2022 09/21/2022 Additional Source Comments INFORMATION SOURCE (unrecogn ized section and content) DATE CREATED AUTHOR 08/08/2017 [facility] DATE CREATED AUTHOR AUTHOR'S ORGANIZ ATION 03/14/2021 [facility] DATE CREATED AUTHOR AUTHOR'S ORGANIZ ATION 08/03/2021 [facility] DATE CREATED AUTHOR AUTHOR'S ORGANIZ ATION 08/06/2021 [facility] DATE CREATED AUTHOR AUTHOR'S ORGANIZ ATION 09/24/2021 [facility] DATE CREATED AUTHOR AUTHOR'S ORGANIZ ATION 03/16/2023 [facility] DATE CREATED AUTHOR AUTHOR'S ORGANIZ ATION 12/30/2024 [facility] DATE CREATED AUTHOR AUTHOR'S ORGANIZ ATION 12/30/2024 [facility] Reason for Visit (unrecogniz ed section and content) Reason Comments Shortness of Breath Cough Reason Comments Post-op Problem Reason Comments Results Reason Comments Wound Check Right Thigh Reason Comments Long Term ReCertification Reason Comments Prescription Refills Reason Comments Fax requested Reason Comments Wound Check posterior right thig h Reason Comments Orders Reason Comments [facility] [employer] re faxing orders to be signed by the doctor Reason Comments Patient Question Reason Comments Patient Update Medication Request Reason Comments 07/20/21; MMOR; CURE Parathyroidectomy Reason Comments Received Outside Medical Records Reason Comments Consult Reason Onset Date Comments Refill Request 07/13/2021 Reason Comments Wound Check thighs Reason Comments PreOp Call Reason Onset Date Comments Refill Request 07/19/2021 Reason Comments Post Op Reason Comments Post op complications Reason Comments Patient Update Reason Comments Patient Update Lab results Reason Comments Results Reason Comments Wound Check posterior thighs Reason Onset Date Comments Refill Request 08/31/2021 Reason Comments Wound Check left thigh cluster w ound Reason Comments Refill Request Reason Onset Date Comments Refill Request 09/28/2021 Reason Comments blood sugars readiing Reason Comments Established Patient Established Patient Bilateral knee pain - Last seen 03/17/19 bilateral knee pain Reason Onset Date Comments Refill Request 10/12/2021 Reason Comments Medication Problem Reason Comments Established Patient 1 wk 3 days post vis it bilateral knee pain with injection given in right knee - wants injection left knee Knee Pain 1 wk 3 days post vis it bilateral knee pain with injection given in right knee - wants injection left knee Injections 1 wk 3 days post vis it bilateral knee pain with injection given in right knee - wants injection left knee Reason Comments Results Patient Update Reason Onset Date Comments Refill Request 10/28/2021 Reason Comments Follow Up Reason Onset Date Comments Refill Request 11/24/2021 Reason Onset Date Comments Refill Request 11/30/2021 Reason Comments Patient Question Requesting medicatio n not on current med list Refill Request Reason Comments Forms Reason Onset Date Comments Refill Request 01/11/2022 Reason Comments Orders [place] [facility] cert and plan of care Reason Onset Date Comments Refill Request 02/06/2022 Reason Comments F/U 3 Month Reason Onset Date Comments Refill Request 02/28/2022 Reason Comments Right Hip Rash Reason Onset Date Comments Refill Request 03/06/2022 Reason Onset Date Comments Transition Of Care 03/06/2022 Reason Comments Dizziness Reason Comments Orders Urine sample Hat Reason Comments Medication Request Reason Onset Date Comments Refill Request 04/03/2022 Reason Onset Date Comments Refill Request 04/19/2022 Reason Onset Date Comments Refill Request 04/24/2022 Reason Comments Cough Shortness of Breath Wheezing Chest Congestion Reason Onset Date Comments Refill Request 05/17/2022 Reason Onset Date Comments Refill Request 05/22/2022 Reason Onset Date Comments Refill Request 06/19/2022 Reason Comments F/U 3 Month Reason Onset Date Comments Refill Request 08/07/2022 Reason Onset Date Comments Refill Request 08/21/2022 Reason Comments Follow Up 4 week Reason Onset Date Comments Refill Request 09/04/2022 Reason Comments Problem with DME supplier Reason Comments DME Orders Reason Comments Order for a Lift Chair Reason Comments Erroneous encounter-disregard See other phone note of today Reason Comments Covid like symptoms Reason Onset Date Comments Refill Request 09/28/2022 Reason Comments Follow Up Tremor Reason Onset Date Comments Refill Request 10/05/2022 Reason Comments Wound Check Right thigh-open, le ft thigh-closed Reason Comments Wound Check Reason Onset Date Comments Refill Request 12/18/2022 Reason Comments Radiology NM Reason Comments Radio Gen RMP Specialty Diagnoses / Procedures Referred By Contac t Referred To Contact XR IMAGING Diagnoses Pain Procedures XR KNEE GENERAL 4V AP BOTH/PA BOTH/LAT/MERC BILATERAL RADIOLOGIC EXAM KNEE COMPLETE 4/MORE VIEWS Trevor Corrales MD [address] [address] [place] [address] Referral ID Status Reason Start Date Expiration Date V isits Requested Visits Authorized [id number] Closed Auto-Generate d Referral 04/18/2021 05/18/2022 1 1 Reason Comments UTI Reason Onset Date Comments Refill Request 01/23/2023 Reason Comments Lab Orders Reason Comments Diabetes Discuss elevated blo od sugars Neck Mass Does not hurt Reason Comments Medication Question Reason Comments Follow Up 3 month follow up Reason Onset Date Comments Refill Request 06/06/2023 Reason Comments Medication Update Reason Onset Date Comments Refill Request 06/21/2023 Reason Onset Date Comments Refill Request 07/19/2023 Reason Comments Patient Update regarding weight Reason Onset Date Comments Refill Request 08/10/2023 Reason Comments Pharmacy Call Reason Comments Insurance Authorization Reason Comments Orders Diabetic Shoe Reason Onset Date Comments Refill Request 08/27/2023 Reason Comments Letter to [place] Reason Onset Date Comments Refill Request 09/11/2023 Reason Comments Derm Problem Right side of back, side and abdomen Reason Comments Shingles Reason Comments Weight Management Medication follow up Shingles Follow up Reason Onset Date Comments Refill Request 10/12/2023 Reason Comments Follow Up 6 week f/u Reason Onset Date Comments Refill Request 12/17/2023 Reason Onset Date Comments Refill Request 12/31/2023 Reason Onset Date Comments Refill Request 01/07/2024 Reason Onset Date Comments Refill Request 02/12/2024 Reason Onset Date Comments requesting medication that is 02/12/2024 Reason Onset Date Comments Refill Request 03/03/2024 Reason Onset Date Comments Refill Request 03/17/2024 Reason Comments sinus pain and pressure X 2 weeks with S T, cough and ARAIZA Reason Comments Sinus Problem Reason Comments Headache Dizziness Chest Pain Reason Comments ER F/U WC 04/25/24 chest elena n; unknown cause Reason Onset Date Comments Refill Request 05/12/2024 Reason Onset Date Comments Refill Request 05/29/2024 Reason Comments Patient Question Reason Onset Date Comments Refill Request 07/04/2024 Reason Onset Date Comments Refill Request 07/29/2024 Reason Comments Back Pain Specialty Diagnoses / [facility] To Contact Pain Management Diagnoses DDD (degenerative disc disease), cervical Diffuse myofascial pain syndrome Bilateral primary osteoarthritis of knee Procedures CONSULT TO PAIN MGT OFFICE/OUTPATIENT NEW HIGH MDM 60 MINUTES Nehemiah Herbert MD [address] [place] [address] Phone: tel: fax: Referral ID Status Reason Start Date Expiration Date V isits Requested Visits Authorized [id number] Closed PCP Requested Referral 07/03/2024 07/03/2025 1 1 Reason Onset Date Comments Refill Request 07/22/2024 Reason Comments New Patient JEREMÍAS Specialty Diagnoses / Procedures [facility] Referred To Contact Neurology Diagnoses Obstructive sleep apnea Procedures CONSULT TO NEUROLOGY OFFICE/OUTPATIENT NEW HIGH MDM 60 MINUTES Joi Markham, WALLP[employer]ER [employer] [address] [place] [address] Phone: tel: fax: Referral ID Status Reason Start Date Expiration Date V isits Requested Visits Authorized [id number] Closed PCP Requested Referral 03/20/2024 03/13/2025 1 1 Reason Comments Follow Up Pain gio did not gi ve her any meds. Reason Onset Date Comments Refill Request 08/25/2024 Reason Comments Patient Update BS Readings Reason Onset Date Comments Refill Request 09/16/2024 Reason Comments blood sugar readings Reason Comments Patient Request Reason Onset Date Comments Refill Request 10/10/2024 Patient Update 10/10/2024 Reason Onset Date Comments Refill Request 10/13/2024 Reason Comments Follow Up Pain is much more co ntrolled. Mentally feeling great! Scheduled Active and Recently Administ ered Medications (unrecognized section and content) Medication Order 03/10/2021 03/11/2021 03/12/2021 albuterol (PROVENTIL) nebulizer solution 2.5 mg (COMPLETED) 2.5 mg, Nebulization, ONCE, On 03/12/21 at 1432, For 1 dose 1435 (Given - Provid er: Daisy Paula RN) benzonatate (TESSALON) capsule 200 mg (COMPLETED) 200 mg, Oral, ONCE, On 03/12/21 at 1234, For 1 dose 1245 (Given - Provid er: Daisy Paula RN) dexamethasone (PF) (DECADRON) injection 8 mg (COMPLETED) 8 mg, IntraVENous, ONCE, On 03/12/21 at 1234, For 1 dose 1257 (Given - Provid er: Daisy Paula RN) furosemide (LASIX) injection 80 mg (COMPLETED) 80 mg, IntraVENous, ONCE, On 03/12/21 at 1234, For 1 dose 1302 (Given - Provid er: Daisy Paula RN) ipratropium-albuterol (DUONEB) nebulizer solution 1 ampule (COMPLETED) 1 ampule, Inhalation, ONCE, On 03/12/21 at 1234, For 1 dose 1307 (Given - Provid er: Daisy Paula RN) oxyCODONE-acetaminophen (PERCOCET) 5-325 MG per tablet 1 tablet (COMPLETED) 1 tablet, Oral, ONCE, On 03/12/21 at 1258, For 1 dose, Maximum dose of acetaminophen is 4000 mg from all sources in 24 hours. 1347 (Given - Provid er: Daisy Paula RN) Care Teams (unrecognized sec tion and content) Lead Retail Sales Associate Relationship Specialty Start Date End Date Nehemiah Herbert MD [address] [place] [address] PCP - General Family Medicine 08/01/18 Lead Retail Sales Associate Relationship Specialty Start Date End Date Nehemiah Herbert MD [address] [place] [address] PCP - General Family Practice 05/19/20 [place] and[place], [facility] [address] [place] [address] Pharmacist Pharmacy 12/26/17 Lead Retail Sales Associate Relationship Specialty Start Date End Date Nehemiah Herbert MD [address] [place] [address] PCP - General Family Practice 05/19/20 [place], [facility] [address] [place] [address] Pharmacist Pharmacy 12/26/17 Lead Retail Sales Associate Relationship Specialty Start Date End Date Nehemiah Herbert MD [address] [place] [address] PCP - General Family Practice 05/19/20 [place] anderson, [facility] [address] [place] [address] Pharmacist Pharmacy 12/26/17 Lead Retail Sales Associate Relationship Specialty Start Date End Date Nehemiah Herbert MD [address] [place] [address] PCP - General Family Practice 05/19/20 [place], [facility] [address] [place] [address] Pharmacist Pharmacy 12/26/17 Lead Retail Sales Associate Relationship Specialty Start Date End Date Nehemiah Herbert MD [address] [place] [address] PCP - General Family Practice 05/19/20 [place], [facility] [address] [place] [address] Pharmacist Pharmacy 12/26/17 Lead Retail Sales Associate Relationship Specialty Start Date End Date Nehemiah Herbert MD [address] [place] [address] PCP - General Family Practice 05/19/20 Alcira Pope, [facility] [address] [place] [address] Pharmacist Pharmacy 12/26/17 Lead Retail [employer] Associate Relationship Specialty Start Date End Date Nehemiah Herbert MD [address] [place] [address] PCP - General Family Practice 05/19/20 Alcira Pope, [facility] [address] [place] [address] Pharmacist Pharmacy 12/26/17 Lead Retail Sales Associate Relationship Specialty Start Date End Date Nehemiah Herbert MD [address] [place] [address] PCP - General Family Practice 05/19/20 Alcira Pope, [facility] [address] [place] [address] Pharmacist Pharmacy 12/26/17 Lead Retail Sales Associate Relationship Specialty Start Date End Date Nehemiah Herbert MD [address] [place] [address] PCP - General Family Practice 05/19/20 Alcira Pope, [facility] [address] [place] [address] Pharmacist Pharmacy 12/26/17 Lead Retail Sales Associate Relationship Specialty Start Date End Date Nehemiah Herbert MD [address] [place] [address] PCP - General Family Practice 05/19/20 Alcira Pope, [facility] [address] [place] [address] Pharmacist Pharmacy 12/26/17 Lead Retail Sales Associate Relationship Specialty Start Date End Date Nehemiah Herbert MD [address] [place] [address] PCP - General Family Practice 05/19/20 ToshiaAlcira anderson, [facility] [address] [place] [address] Pharmacist Pharmacy 12/26/17 Lead Retail Sales Associate Relationship Specialty Start Date End Date Nehemiah Herbert MD [address] [place] [address] PCP - General Family Practice 05/19/20 [facility] [address] [place] [address] Pharmacist Pharmacy 12/26/17 Lead Retail Sales Associate Relationship Specialty Start Date End Date Nehemiah Herbert MD [address] [place] [address] PCP - General Family Practice 05/19/20 [place] [facility] [address] [place] [address] Pharmacist Pharmacy 12/26/17 Lead Retail Sales Associate Relationship Specialty Start Date End Date Nehemiah Herbert MD [address] [place] [address] PCP - General Family Practice 05/19/20 [place] [facility] [address] [place] [address] Pharmacist Pharmacy 12/26/17 Lead Retail Sales Associate Relationship Specialty Start Date End Date Nehemiah Herbert MD [address] [place] [address] PCP - General Family Practice 05/19/20 [facility] [address] [place] [address] Pharmacist Pharmacy 12/26/17 Lead Retail Sales Associate Relationship Specialty Start Date End Date Nehemiah Herbert MD [address] [place] [address] PCP - General Family Practice 05/19/20 Alcira Pope, [facility] [address] [place] [address] Pharmacist Pharmacy 12/26/17 Lead Retail Sales Associate Relationship Specialty Start Date End Date Nehemiah Herbert MD [address] [place] [address] PCP - General Family Practice 05/19/20 Alcira Pope, [facility] [address] [place] [address] Pharmacist Pharmacy 12/26/17 Lead Retail Sales Associate Relationship Specialty Start Date End Date Nehemiah Herbert MD [address] [place] [address] PCP - General Family Practice 05/19/20 Alcira Pope, [facility] [address] [place] [address] Pharmacist Pharmacy 12/26/17 Lead Retail Sales Associate Relationship Specialty Start Date End Date Nehmeiah Herbert MD [address] [place] [address] PCP - General Family Practice 05/19/20 Alcira Pope, [facility] [address] [place] [address] Pharmacist Pharmacy 12/26/17 Lead Retail Sales Associate Relationship Specialty Start Date End Date Nehemiah Herbert MD [address] [place] [address] PCP - General Family Practice 05/19/20 Alcira Pope, [facility] [address] [place] [address] Pharmacist Pharmacy 12/26/17 Lead Retail Sales Associate Relationship Specialty Start Date End Date Nehemiah Herbert MD [address] [place] [address] PCP - General Family Practice 05/19/20 [facility] [address] [place] [address] Pharmacist Pharmacy 12/26/17 Lead Retail Sales Associate Relationship Specialty Start Date End Date Nehemiah Herbert MD [address] [place] [address] PCP - General Family Practice 05/19/20 [facility] [address] [place] [address] Pharmacist Pharmacy 12/26/17 Lead Retail Sales Associate Relationship Specialty Start Date End Date Nehemiah Herbert MD [address] [place] [address] PCP - General Family Practice 05/19/20 [facility] [address] [place] [address] Pharmacist Pharmacy 12/26/17 Lead Retail Sales Associate Relationship Specialty Start Date End Date Nehemiah Herbert MD [address] [place] [address] PCP - General Family Medicine 05/19/20 [facility] [address] [place] [address] Pharmacist Pharmacy 12/26/17 Lead Retail Sales Associate Relationship Specialty Start Date End Date Nehemiah Herbert MD [address] [place] [address] PCP - General Family Medicine 05/19/20 Alcira Pope, [facility] [address] [place] [address] Pharmacist Pharmacy 12/26/17 Lead Retail Sales Associate Relationship Specialty Start Date End Date Nehemiah Herbert MD [address] [place] [address] PCP - General Family Medicine 05/19/20 [facility] [address] [place] [address] Pharmacist Pharmacy 12/26/17 Lead Retail Sales Associate Relationship Specialty Start Date End Date Nehemiah Herbert MD [address] [place] [address] PCP - General Family Medicine 05/19/20 [facility] [address] [place] [address] Pharmacist Pharmacy 12/26/17 Lead Retail Sales Associate Relationship Specialty Start Date End Date Nehemiah Herbert MD [address] [place] [address] PCP - General Family Medicine 05/19/20 [facility] [address] [place] [address] Pharmacist Pharmacy 12/26/17 Lead Retail Sales Associate Relationship Specialty Start Date End Date Nehemiah Herbert MD [address] [place] [address] PCP - General Family Medicine 05/19/20 [facility] [address] [place] [address] Pharmacist Pharmacy 12/26/17 Lead Retail Sales Associate Relationship Specialty Start Date End Date Nehemiah Herbert MD [address] [place] [address] PCP - General Family Medicine 05/19/20 Alcira Pope, [facility] [address] [place] [address] Pharmacist Pharmacy 12/26/17 Team Status: Active Member Role Status Dates Dr. Nehemiah Herbert MD Family Provider Active Dr. Nehemiah Herbert MD Primary Care Provider Active Team Status: Active Member Role Status Dates Dr. Nehemiah Herbert MD Primary Care Provider Active Dr. Bart Prakash DO Emergency Provider Active Dr. Gudelia Barron MD Admit Provider, Attending Provider, Other Provider Active Team Status: Active Member Role Status Dates Dr. Nehemiah Herbert MD Primary Care Provider Active Dr. Bart Prakash DO Emergency Provider Active Dr. Gudelia Barron MD Admit Provider, Other Provider Active Dr. Adolfo Morgan MD Attending Provider, Other Provid er Active Team Status: Inactive Member Role Status Dates Dr. Nehemiah Herbert MD Primary Care Provider Active Dr. Bart Prakash DO Emergency Provider Active Dr. Gudelia Barron MD Admit Provider, Other Provider Active Dr. Adolfo Morgan MD Attending Provider Active Team Status: Inactive Member Role Status Dates Dr. Nehemiah Herbert MD Primary Care Provider Active Dr. Mike Crespo MD Emergency Provider Active Dr. Jean Marie Pereira MD Referring Provider Activ e Lead Retail Sales Associate Relationship Specialty Start Date End Date Nehemiah Herbert MD [address] [place] [address] PCP - General Family Medicine 05/19/20 Alcira Pope, [facility] [address] [place] [address] Pharmacist Pharmacy 12/26/17 Lead Retail Sales Associate Relationship Specialty Start Date End Date Nehemiah Herbert MD [address] [place] [address] PCP - General Family Medicine 05/19/20 ToshiaAlcira anderson, [facility] [address] [place] [address] Pharmacist Pharmacy 12/26/17 Lead Retail Sales Associate Relationship Specialty Start Date End Date Nehemiah Herbert MD [address] [place] [address] PCP - General Family Medicine 05/19/20 [place] Alcira, [facility] [address] [facility] [place] [address] Pharmacist Pharmacy 12/26/17 Lead Retail Sales Associate Relationship Specialty Start Date End Date Nehemiah Herbert MD [address] [place] [address] PCP - General Family Medicine 05/19/20 [place] Alcira, [facility] [address] [place] [address] Pharmacist Pharmacy 12/26/17 Lead Retail Sales Associate Relationship Specialty Start Date End Date Nehemiah Herbert MD [address] [place] [address] PCP - General Family Medicine 05/19/20 [place], [facility] [address] [place] [address] Pharmacist Pharmacy 12/26/17 Lead Retail Sales Associate Relationship Specialty Start Date End Date Nehemiah Herbert MD [address] [place] [address] PCP - General Family Medicine 05/19/20 [facility] [address] [place] [address] Pharmacist Pharmacy 12/26/17 Lead Retail Sales Associate Relationship Specialty Start Date End Date Nehemiah Herbert MD [address] [place] [address] PCP - General Family Medicine 05/19/20 [place] Alcira, [facility] [address] [place] [address] Pharmacist Pharmacy 12/26/17 Lead Retail Sales Associate Relationship Specialty Start Date End Date Nehemiah Herbert MD [address] [facility] [place] [address] PCP - General Family Medicine 05/19/20 Alcira Pope, [facility] [address] [facility] [place] [address] Pharmacist Pharmacy 12/26/17 Lead Retail Sales Associate Relationship Specialty Start Date End Date Nehemiah Herbert MD [address] [place] [address] PCP - General Family Medicine 05/19/20 Alcira Pope, [facility] [address] [place] [address] Pharmacist Pharmacy 12/26/17 Lead Retail Sales Associate Relationship Specialty Start Date End Date Nehemiah Herbert MD [address] [place] [address] PCP - General Family Medicine 05/19/20 Alcira Pope, [facility] [address] [place] [address] Pharmacist Pharmacy 12/26/17 Lead Retail Sales Associate Relationship Specialty Start Date End Date Nehemiah Herbert MD [address] [place] [address] PCP - General Family Medicine 05/19/20 Alcira Pope, [facility] [address] [place] [address] Pharmacist Pharmacy 12/26/17 Lead Retail Sales Associate Relationship Specialty Start Date End Date Nehemiah Herbert MD [address] [place] [address] PCP - General Family Medicine 05/19/20 Alcira Pope, [facility] [address] [place] [address] Pharmacist Pharmacy 12/26/17 Lead Retail Sales Associate Relationship Specialty Start Date End Date Nehemiah Herbert MD [address] [place] [address] PCP - General Family Medicine 05/19/20 [place] [facility] [address] [place] [address] Pharmacist Pharmacy 12/26/17 Lead Retail Sales Associate Relationship Specialty Start Date End Date Nehemiah Herbert MD [address] [place] [address] PCP - General Family Medicine 05/19/20 [place], [facility] [address] [place] [address] Pharmacist Pharmacy 12/26/17 Lead Retail Sales Associate Relationship Specialty Start Date End Date Nehemiah Herbert MD [address] [place] [address] PCP - General Family Medicine 05/19/20 [place] Alcira, [facility] [address] [place] [address] Pharmacist Pharmacy 12/26/17 Lead Retail Sales Associate Relationship Specialty Start Date End Date Nehemiah Herbert MD [address] [place] [address] PCP - General Family Medicine 05/19/20 [place], [facility] [address] [place] [address] Pharmacist Pharmacy 12/26/17 Lead Retail Sales Associate Relationship Specialty Start Date End Date Nehemiah Herbert MD [address] [place] [address] PCP - General Family Medicine 05/19/20 [place], Alcira, [facility] [address] [facility] [place] [address] Pharmacist Pharmacy 12/26/17 Lead Retail Sales Associate Relationship Specialty Start Date End Date Nehemiah Herbert MD [address] [place] [address] PCP - General Family Medicine 05/19/20 11/07/22 [place], Alcira, [facility] [address] [place] [address] Pharmacist Pharmacy 12/26/17 Lead Retail Sales Associate Relationship Specialty Start Date End Date Sanjay Abbasi PA-C [address] [place] [address] PCP - General Family Medicine 11/08/22 [place]osh[place], Alcira, [facility] [address] [facility] [place] [address] Pharmacist Pharmacy 12/26/17 Lead Retail Sales Associate Relationship Specialty Start Date End Date Sanjay Abbasi PA-C [address] [place] [address] PCP - General Family Medicine 11/08/22 [place], Alcira, [facility] [address] [place] [address] Pharmacist Pharmacy 12/26/17 Lead Retail Sales Associate Relationship Specialty Start Date End Date Nehemiah Herbert MD [address] [place] [address] PCP - General Family Medicine 05/19/20 11/07/22 [place], Alcira, [facility] [address] [place] [address] Pharmacist Pharmacy 12/26/17 Lead Retail Sales Associate Relationship Specialty Start Date End Date Nehemiah Herbert MD [address] [place] [address] PCP - General Family Medicine 05/19/20 11/07/22 Alcira Pope, [facility] [address] [facility] [place] [address] Pharmacist Pharmacy 12/26/17 Lead Retail Sales Associate Relationship Specialty Start Date End Date Nehemiah Herbert MD [address] [place] [address] PCP - General Family Medicine 05/19/20 11/07/22 Alcira Pope, [facility] [address] [place] [address] Pharmacist Pharmacy 12/26/17 Lead Retail Sales Associate Relationship Specialty Start Date End Date Nehemiah Herbert MD [address] [place] [address] PCP - General Family Medicine 05/19/20 11/07/22 Alcira Pope, [facility] [address] [place] [address] Pharmacist Pharmacy 12/26/17 Lead Retail Sales Associate Relationship Specialty Start Date End Date Sanjay Abbasi PA-C [address] [facility] [place] [address] PCP - General Family Medicine 11/08/22 Alcira Pope, [facility] [address] [place] [address] Pharmacist Pharmacy 12/26/17 Lead Retail Sales Associate Relationship Specialty Start Date End Date Sanjay Abbasi PA-C [address] [place] [address] PCP - General Family Medicine 11/08/22 [place], [facility] [address] [place] [address] Pharmacist Pharmacy 12/26/17 Lead Retail Sales Associate Relationship Specialty Start Date End Date Sanjay Abbasi PA-C [address] [place] [address] PCP - General Family Medicine 11/08/22 [place], Alcira, [facility] [address] [place] [address] Pharmacist Pharmacy 12/26/17 Lead Retail Sales Associate Relationship Specialty Start Date End Date Sanjay Abbasi PA-C [address] [place] [address] PCP - General Family Medicine 11/08/22 [place], Alcira, [facility] [address] [place] [address] Pharmacist Pharmacy 12/26/17 Lead Retail Sales Associate Relationship Specialty Start Date End Date Sanjay Abbasi PA-C [address] [place] [address] PCP - General Family Medicine 11/08/22 [place], [facility] [address] [place] [address] Pharmacist Pharmacy 12/26/17 Lead Retail Sales Associate Relationship Specialty Start Date End Date Sanjay Abbasi PA-C [address] [place] [address] PCP - General Family Medicine 11/08/22 Alcira Pope, [facility] [address] [facility] [place] [address] Pharmacist Pharmacy 12/26/17 Lead Retail Sales Associate Relationship Specialty Start Date End Date Sanjay Abbasi PA-C [address] [facility] [place] [address] PCP - General Family Medicine 11/08/22 [place], [facility] [address] [facility] [place] [address] Pharmacist Pharmacy 12/26/17 Lead Retail Sales Associate Relationship Specialty Start Date End Date Sanjay Abbasi PA-C [address] [facility] [place] [address] PCP - General Family Medicine 11/08/22 [place], [facility] [address] [place] [address] Pharmacist Pharmacy 12/26/17 Lead Retail Sales Associate Relationship Specialty Start Date End Date Sanjay Abbasi PA-C [address] [place] [address] PCP - General Family Medicine 11/08/22 Alcira Pope, [facility] [address] [place] [address] Pharmacist Pharmacy 12/26/17 Lead Retail Sales Associate Relationship Specialty Start Date End Date Sanjay Abbasi PA-C [address] [place] [address] PCP - General Family Medicine 11/08/22 [place], [facility] [address] [place] [address] Pharmacist Pharmacy 12/26/17 Lead Retail Sales Associate Relationship Specialty Start Date End Date Sanjay Abbasi PA-C [address] [place] [address] PCP - General Family Medicine 11/08/22 [place], [facility] [address] [place] [address] Pharmacist Pharmacy 12/26/17 Team Status: Active Member Role Status Dates Dr. Nehemiah Herbert MD Primary Care Provider Active DEBRA Rios Attending Provider, Other Provider A ctive ANA Melvin Referring Provider Active Team Status: Inactive Member Role Status Dates Dr. Nehemiah Herbert MD Primary Care Provider Active DEBRA Rios Attending Provider Active ANA Melvin Referring Provider Active Lead Retail Sales Associate Relationship Specialty Start Date End Date Sanjay Abbasi PA-C [address] [place] [address] PCP - General Family Medicine 11/08/22 [place], [facility] [address] [place] [address] Pharmacist Pharmacy 12/26/17 Lead Retail Sales Associate Relationship Specialty Start Date End Date Sanjay Abbasi PA-C [address] [place] [address] PCP - General Family Medicine 11/08/22 [place] Alcira, [facility] [address] [place] [address] Pharmacist Pharmacy 12/26/17 Lead Retail Sales Associate Relationship Specialty Start Date End Date Sanjay Abbasi PA-C [address] [place] [address] PCP - General Family Medicine 11/08/22 [place] Alcira, [facility] [address] [place] [address] Pharmacist Pharmacy 12/26/17 Lead Retail Sales Associate Relationship Specialty Start Date End Date Sanjay Abbasi PA-C [address] [place] [address] PCP - General Family Medicine 11/08/22 [place], [facility] [address] [place] [address] Pharmacist Pharmacy 12/26/17 Lead Retail Sales Associate Relationship Specialty Start Date End Date Sanjay Abbasi PA-C [address] [place] [address] PCP - General Family Medicine 11/08/22 [place], [facility] [address] [place] [address] Pharmacist Pharmacy 12/26/17 Lead Retail Sales Associate Relationship Specialty Start Date End Date Sanjay Abbasi PA-C [address] [place] [address] PCP - General Family Medicine 11/08/22 [place], [facility] [address] [place] [address] Pharmacist Pharmacy 12/26/17 Lead Retail Sales Associate Relationship Specialty Start Date End Date Sanjay Abbasi PA-C [address] [place] [address] PCP - General Family Medicine 11/08/22 [place], [facility] [address] [place] [address] Pharmacist Pharmacy 12/26/17 Lead Retail Sales Associate Relationship Specialty Start Date End Date Sanjay Abbasi PA-C [address] [place] [address] PCP - General Family Medicine 11/08/22 [place], [facility] [address] [place] [address] Pharmacist Pharmacy 12/26/17 Lead Retail Sales Associate Relationship Specialty Start Date End Date Sanjay Abbasi PA-C [address] [place] [address] PCP - General Family Medicine 11/08/22 [place], [facility] [address] [place] [address] Pharmacist Pharmacy 12/26/17 Lead Retail Sales Associate Relationship Specialty Start Date End Date Sanjay Abbasi PA-C [address] [place] [address] PCP - General Family Medicine 11/08/22 [place], [facility] [address] [place] [address] Pharmacist Pharmacy 12/26/17 Lead Retail Sales Associate Relationship Specialty Start Date End Date Sanjay Abbasi PA-C [address] [place] [address] PCP - General Family Medicine 11/08/22 [place], [facility] [address] [place] [address] Pharmacist Pharmacy 12/26/17 Lead Retail Sales Associate Relationship Specialty Start Date End Date Joi Markham APRN.[employer] FIELD [employer]OUSTAB[employer] [address] [place] [address] PCP - General Family Medicine 12/06/23 [place], [facility] [address] [place] [address] Pharmacist Pharmacy 12/26/17 Lead Retail Sales Associate Relationship Specialty Start Date End Date Joi Markham WALLP[employer]ER [employer] [address] [facility] [place] [address] PCP - General Family Medicine 12/06/23 [facility], [facility] [address] [facility] [place] [address] Pharmacist Pharmacy 12/26/17 Lead Retail Sales Associate Relationship Specialty Start Date End Date Joi Markham WALLPAPER [employer]OVER [employer] [address] [facility] [place] [address] PCP - General Family Medicine 12/06/23 [facility] [address] [place] [address] Pharmacist Pharmacy 12/26/17 Lead Retail Sales Associate Relationship Specialty Start Date End Date Joi Markham WALLPAPER [employer]OVER [employer] [address] [facility] [place] [address] PCP - General Family Medicine 12/06/23 [facility] [address] [facility] [place] [address] Pharmacist Pharmacy 12/26/17 Lead Retail Sales Associate Relationship Specialty Start Date End Date Joi Markham, W[employer] [address] [place] [address] PCP - General Family Medicine 12/06/23 [facility], [facility] [address] [facility] [place] [address] Pharmacist Pharmacy 12/26/17 Lead Retail Sales Associate Relationship Specialty Start Date End Date Joi Markham, [employer] [address] [place] [address] PCP - General Family Medicine 12/06/23 [place], [facility] [address] [place] [address] Pharmacist Pharmacy 12/26/17 Lead Retail Sales Associate Relationship Specialty Start Date End Date Joi Markham, [employer] [address] [place] [address] PCP - General Family Medicine 12/06/23 [place], [facility] [address] [place] [address] Pharmacist Pharmacy 12/26/17 Lead Retail Sales Associate Relationship Specialty Start Date End Date Joi Markham, WALLPAPER [employer]OVER [employer] [address] [place] [address] PCP - General Family Medicine 12/06/23 [place], [facility] [address] [place] [address] Pharmacist Pharmacy 12/26/17 Lead Retail Sales Associate Relationship Specialty Start Date End Date Joi Markham, WALLPAPER REMOVER [employer] [address] [place] [address] PCP - General Family Medicine 12/06/23 [place], [facility] [address] [place] [address] Pharmacist Pharmacy 12/26/17 Lead Retail Sales Associate Relationship Specialty Start Date End Date Joi Markham, WALLPAPER REMOVER [employer] [address] [place] [address] PCP - General Family Medicine 12/06/23 [place], [facility] [address] [place] [address] Pharmacist Pharmacy 12/26/17 Lead Retail Sales Associate Relationship Specialty Start Date End Date Joi Markham, WALLPAPER [employer]OVER [employer] [address] [place] [address] PCP - General Family Medicine 12/06/23 [place], [facility] [address] [place] [address] Pharmacist Pharmacy 12/26/17 Lead Retail Sales Associate Relationship Specialty Start Date End Date Joi Markham, WALLPAPER [employer] [address] [place] [address] PCP - General Family Medicine 12/06/23 [place], [facility] [address] [place] [address] Pharmacist Pharmacy 12/26/17 Lead Retail Sales Associate Relationship Specialty Start Date End Date Joi Markham, WALLPAPER [employer] [address] [place] [address] PCP - General Family Medicine 12/06/23 [place], [facility] [address] [place] [address] Pharmacist Pharmacy 12/26/17 Lead Retail Sales Associate Relationship Specialty Start Date End Date Joi Markham, WALLPAPER [employer] [address] [place] [address] PCP - General Family Medicine 12/06/23 [place], [facility] [address] [place] [address] Pharmacist Pharmacy 12/26/17 Team Status: Active Member Role Status Dates ANA Melvin Primary Care Provider Active Team Status: Active Member Role Status Dates Dr. Nehemiah Herbert MD Primary Care Provider Active Start: December 31, 2023 Arpita Moore MATERNITY NURSE, MATERNITY NURSE-C Attending Provider Active Start: December 31, 2023 Arpitafranci Moore MATERNITY NURSE, MATERNITY NURSE-C Referring Provider Active Start: December 31, 2023 Arpitafranci Moore MATERNITY NURSE, MATERNITY NURSE-C Other Provider Active Start: December 31, 2023 Team Status: Inactive Member Role Status Dates Dr. Nehemiah Herbert MD Primary Care Provider Active Start: January 14, 2024 End: January 19, 2024 ANA Melvin Referring Provider Active Start: January 14, 2024 End: January 19, 2024 Arpitafranci Moore MATERNITY NURSE, MATERNITY NURSE-C Attending Provider Active Start: January 14, 2024 End: January 19, 2024 Team Status: Active Member Role Status Dates Dr. Nehemiah Herbert MD Primary Care Provider Active Start: January 14, 2024 Arpita Moore MATERNITY NURSE, MATERNITY NURSE-C Attending Provider Active Start: January 14, 2024 Arpitafranci Moore MATERNITY NURSE, MATERNITY NURSE-C Referring Provider Active Start: January 14, 2024 Arpita Moore MATERNITY NURSE, MATERNITY NURSE-C Other Provider Active Start: January 14, 2024 Team Status: Inactive Member Role Status Dates Dr. Zain Andrade DO Emergency Provider Active Start: April 25, 2024 End: April 25, 2024 ANA Melvin Primary Care Provider Active Start: April 25, 2024 End: April 25, 2024 Lead Retail Sales Associate Relationship Specialty Start Date End Date Joi Markham WALLPAPER [employer]OVER [employer] [address] [place], [place] [address] PCP - General Family Medicine 12/06/23 [facility] [address] [place], [place] [address] Pharmacist Pharmacy 12/26/17 Lead Retail Sales Associate Relationship Specialty Start Date End Date Joi Markham WALLPAPER [employer]OVER [employer] [address] [place] [address] PCP - General Family Medicine 12/06/23 [facility] [address] [place] [address] Pharmacist Pharmacy 12/26/17 Lead Retail Sales Associate Relationship Specialty Start Date End Date Nehemiah Herbert MD [address] [place] [address] PCP - General Family Medicine 06/18/24 [facility] [address] [place] [address] Pharmacist Pharmacy 12/26/17 Lead Retail Sales Associate Relationship Specialty Start Date End Date Nehemiah Herbert MD [address] [place] [address] PCP - General Family Medicine 06/18/24 [facility] [address] [place] [address] Pharmacist Pharmacy 12/26/17 Clarita Mathews WALLPAPER REMOVER [employer] [address] [place] [address] Assembler Family Medicine 07/03/24 Joi Markham, WALLPAPER [employer]OVER [employer] [address] [place] [address] Assembler Family Medicine 07/03/24 Lead Retail Sales Associate Relationship Specialty Start Date End Date Nehemiah Herbert MD [address] [place] [address] PCP - General Family Medicine 06/18/24 [facility] [address] [place] [address] Pharmacist Pharmacy 12/26/17 Clarita Mathews APRN.[employer] [address] [place] [address] Assembler Family Medicine 07/03/24 Joi Markham APRN.[employer] [address] [place] [address] Assembler Family Medicine 07/03/24 Lead Retail Sales Associate Relationship Specialty Start Date End Date Nehemiah Herbert MD [address] [place] [address] PCP - General Family Medicine 06/18/24 [facility] [address] [place] [address] Pharmacist Pharmacy 12/26/17 Clarita Mathews APRN.[employer] [address] [place] [address] Assembler Family Medicine 07/03/24 Joi Markham APRN.[employer] [address] [place] [address] Assembler Family Medicine 07/03/24 Lead Retail Sales Associate Relationship Specialty Start Date End Date Nehemiah Herbert MD [address] [place] [address] PCP - General Family Medicine 06/18/24 [facility] [address] [place] [address] Pharmacist Pharmacy 12/26/17 Clarita Mathews APRN.[employer] [address] [place] [address] Assembler Family Medicine 07/03/24 Joi Markham, WALLPAPER [employer]OVER [employer] [address] [place] [address] Assembler Family Medicine 07/03/24 Lead Retail Sales Associate Relationship Specialty Start Date End Date Joi Markham WALLPAPER REMOVER [employer] [address] [address] PCP - General Family Medicine 12/06/23 06/17/24 Nehemiah Herbert MD [address] [place] [address] PCP - General Family Medicine 06/18/24 Al[facility]ira [facility] [address] [place] [address] Pharmacist Pharmacy 12/26/17 Clarita Mathews, BRIANA.[employer] FIELD [employer] [address] [place] [address] Assembler Family Medicine 07/03/24 Joi Markham WALLPAPER REMOVER [employer] [address] [address] Assembler Family Medicine 07/03/24 Lead Retail Sales Associate Relationship Specialty Start Date End Date Joi Markham WALLPAPER REMOVER [employer] [address] [place] [address] PCP - General Family Medicine 12/06/23 06/17/24 Nehemiah Herbert MD [address] [facility] [place] [address] PCP - General Family Medicine 06/18/24 [facility] [address] [place] [address] Pharmacist Pharmacy 12/26/17 Clarita Mathews, WALLPAPER REMOVER [employer] [address] [place] [address] Assembler Family Medicine 07/03/24 Joi Markham WALLPAPER REMOVER [employer] [address] [place] [address] Assembler Family Medicine 07/03/24 Lead Retail Sales Associate Relationship Specialty Start Date End Date Nehemiah Herbert MD [address] [place] [address] PCP - General Family Medicine 06/18/24 [facility] [address] [place] [address] Pharmacist Pharmacy 12/26/17 Clarita Mathews, WALLPAPER REMOVER [employer] [address] [place] [address] Assembler Family Medicine 07/03/24 Jio Markham, WALLPAPER REMOVER [employer] [address] [place] [address] Assembler Family Medicine 07/03/24 Lead Retail Sales Associate Relationship Specialty Start Date End Date Nehemiah Herbert MD [address] [place] [address] PCP - General Family Medicine 06/18/24 [facility] [address] [place] [address] Pharmacist Pharmacy 12/26/17 Clarita Mathews APRN.[employer] [address] [place] [address] Assembler Family Medicine 07/03/24 Joi Markham APRN.[employer] [address] [place] [address] Assembler Family Medicine 07/03/24 Lead Retail Sales Associate Relationship Specialty Start Date End Date Nehemiah Herbert MD [address] [place] [address] PCP - General Family Medicine 06/18/24 [facility] [address] [place] [address] Pharmacist Pharmacy 12/26/17 Clarita Mathews APRN.[employer] [address] [place] [address] Assembler Family Medicine 07/03/24 Joi Markham WALLPAPER REMOVER [employer] [address] [place] [address] Assembler Family Medicine 07/03/24 Lead Retail Sales Associate Relationship Specialty Start Date End Date Nehemiah Herbert MD [address] [place] [address] PCP - General Family Medicine 06/18/24 [facility] [address] [place] [address] Pharmacist Pharmacy 12/26/17 Clarita Mathews APRN.[employer] [address] [place] [address] Assembler Family Medicine 07/03/24 Joi Markham APRN.[employer] [address] [place] [address] Assembler Family Medicine 07/03/24 Lead Retail Sales Associate Relationship Specialty Start Date End Date Nehemiah Herbert MD [address] [place] [address] PCP - General Family Medicine 06/18/24 [facility] [address] [place] [address] Pharmacist Pharmacy 12/26/17 Clarita Mathews APRN.[employer] [address] [place] [address] Assembler Family Medicine 07/03/24 Joi Markham APRN.[employer] [address] [place] [address] Assembler Family Medicine 07/03/24 Lead Retail Sales Associate Relationship Specialty Start Date End Date Nehemiah Herbert MD [address] [place] [address] PCP - General Family Medicine 06/18/24 [facility] [address] [place] [address] Pharmacist Pharmacy 12/26/17 Clarita Mathews APRN.[employer] [address] [place] [address] Assembler Family Medicine 07/03/24 Joi Markham APRN.[employer] [address] [place] [address] Assembler [facility] 07/03/24 Lead Retail Sales Associate Relationship Specialty Start Date End Date Nehemiah Herbert MD [address] [place] [address] PCP - General Family Medicine 06/18/24 [facility] [address] [place] [address] Pharmacist Pharmacy 12/26/17 Clarita Mathews APRN.[employer] [address] [place] [address] [facility] Joi Markham APRN.[employer] FIELD [employer] [address] [address] [facility]/24 Lead Retail Sales Associate Relationship Specialty Start Date End Date Nehemiah Herbert MD [address] [place] [address] PCP - General Family Medicine 06/18/24 [facility] [address] [address] Pharmacist Pharmacy 12/26/17 Clarita Mathews APRN.[employer] FIELD [employer] [address] [place] [address] [facility] 07/03/24 Joi Markham APRN.[employer]ELD [employer] [address] [address] [facility] 07/03/24 Source Comments (unrecognize d section and content) In the event this informatio n is protected by the Federal Confidentiality of Alcohol and Drug Abuse Patient Records regulations: The Federal rules restrict any use of the information to criminally investigate or prosecute any alcohol or drug abuse patient.[facility] CenterIn the event this information is protected by the Federal Confidentiality of Alcohol and Drug Abuse Patient Records regulations: The Federal rules restrict any use of the information to criminally investigate or prosecute any alcohol or drug abuse patient.[facility] CenterIn the event this information is protected by the Federal Confidentiality of Alcohol and Drug Abuse Patient Records regulations: The Federal rules restrict any use of the information to criminally investigate or prosecute any alcohol or drug abuse patient.[facility] CenterIn the event this information is protected by the Federal Confidentiality of Alcohol and Drug Abuse Patient Records regulations: The Federal rules restrict any use of the information to criminally investigate or prosecute any alcohol or drug abuse patient.[facility] CenterIn the event this information is protected by the Federal Confidentiality of Alcohol and Drug Abuse Patient Records regulations: The Federal rules restrict any use of the information to criminally investigate or prosecute any alcohol or drug abuse patient.[facility] CenterIn the event this information is protected by the Federal Confidentiality of Alcohol and Drug Abuse Patient Records regulations: The Federal rules restrict any use of the information to criminally investigate or prosecute any alcohol or drug abuse patient.[facility] CenterIn the event this information is protected by the Federal Confidentiality of Alcohol and Drug Abuse Patient Records regulations: The Federal rules restrict any use of the information to criminally investigate or prosecute any alcohol or drug abuse patient.[facility] CenterIn the event this information is protected by the Federal Confidentiality of Alcohol and Drug Abuse Patient Records regulations: The Federal rules restrict any use of the information to criminally investigate or prosecute any alcohol or drug abuse patient.[facility] CenterIn the event this information is protected by the Federal Confidentiality of Alcohol and Drug Abuse Patient Records regulations: The Federal rules restrict any use of the information to criminally investigate or prosecute any alcohol or drug abuse patient.[facility] CenterIn the event this information is protected by the Federal Confidentiality of Alcohol and Drug Abuse Patient Records regulations: The Federal rules restrict any use of the information to criminally investigate or prosecute any alcohol or drug abuse patient.[facility] CenterIn the event this information is protected by the Federal Confidentiality of Alcohol and Drug Abuse Patient Records regulations: The Federal rules restrict any use of the information to criminally investigate or prosecute any alcohol or drug abuse patient.[facility] CenterIn the event this information is protected by the Federal Confidentiality of Alcohol and Drug Abuse Patient Records regulations: The Federal rules restrict any use of the information to criminally investigate or prosecute any alcohol or drug abuse patient.[facility] CenterIn the event this information is protected by the Federal Confidentiality of Alcohol and Drug Abuse Patient Records regulations: The Federal rules restrict any use of the information to criminally investigate or prosecute any alcohol or drug abuse patient.[facility] CenterIn the event this information is protected by the Federal Confidentiality of Alcohol and Drug Abuse Patient Records regulations: The Federal rules restrict any use of the information to criminally investigate or prosecute any alcohol or drug abuse patient.[facility] CenterIn the event this information is protected by the Federal Confidentiality of Alcohol and Drug Abuse Patient Records regulations: The Federal rules restrict any use of the information to criminally investigate or prosecute any alcohol or drug abuse patient.[facility] CenterIn the event this information is protected by the Federal Confidentiality of Alcohol and Drug Abuse Patient Records regulations: The Federal rules restrict any use of the information to criminally investigate or prosecute any alcohol or drug abuse patient.[facility] CenterIn the event this information is protected by the Federal Confidentiality of Alcohol and Drug Abuse Patient Records regulations: The Federal rules restrict any use of the information to criminally investigate or prosecute any alcohol or drug abuse patient.[facility] CenterIn the event this information is protected by the Federal Confidentiality of Alcohol and Drug Abuse Patient Records regulations: The Federal rules restrict any use of the information to criminally investigate or prosecute any alcohol or drug abuse patient.[facility] CenterIn the event this information is protected by the Federal Confidentiality of Alcohol and Drug Abuse Patient Records regulations: The Federal rules restrict any use of the information to criminally investigate or prosecute any alcohol or drug abuse patient.[facility] CenterIn the event this information is protected by the Federal Confidentiality of Alcohol and Drug Abuse Patient Records regulations: The Federal rules restrict any use of the information to criminally investigate or prosecute any alcohol or drug abuse patient.[facility] CenterIn the event this information is protected by the Federal Confidentiality of Alcohol and Drug Abuse Patient Records regulations: The Federal rules restrict any use of the information to criminally investigate or prosecute any alcohol or drug abuse patient.[facility] CenterIn the event this information is protected by the Federal Confidentiality of Alcohol and Drug Abuse Patient Records regulations: The Federal rules restrict any use of the information to criminally investigate or prosecute any alcohol or drug abuse patient.[facility] CenterIn the event this information is protected by the Federal Confidentiality of Alcohol and Drug Abuse Patient Records regulations: The Federal rules restrict any use of the information to criminally investigate or prosecute any alcohol or drug abuse patient.[facility] CenterIn the event this information is protected by the Federal Confidentiality of Alcohol and Drug Abuse Patient Records regulations: The Federal rules restrict any use of the information to criminally investigate or prosecute any alcohol or drug abuse patient.[facility] CenterIn the event this information is protected by the Federal Confidentiality of Alcohol and Drug Abuse Patient Records regulations: The Federal rules restrict any use of the information to criminally investigate or prosecute any alcohol or drug abuse patient.[facility] CenterIn the event this information is protected by the Federal Confidentiality of Alcohol and Drug Abuse Patient Records regulations: The Federal rules restrict any use of the information to criminally investigate or prosecute any alcohol or drug abuse patient.[facility] CenterIn the event this information is protected by the Federal Confidentiality of Alcohol and Drug Abuse Patient Records regulations: The Federal rules restrict any use of the information to criminally investigate or prosecute any alcohol or drug abuse patient.[facility] CenterIn the event this information is protected by the Federal Confidentiality of Alcohol and Drug Abuse Patient Records regulations: The Federal rules restrict any use of the information to criminally investigate or prosecute any alcohol or drug abuse patient.[facility] CenterIn the event this information is protected by the Federal Confidentiality of Alcohol and Drug Abuse Patient Records regulations: The Federal rules restrict any use of the information to criminally investigate or prosecute any alcohol or drug abuse patient.[facility] CenterIn the event this information is protected by the Federal Confidentiality of Alcohol and Drug Abuse Patient Records regulations: The Federal rules restrict any use of the information to criminally investigate or prosecute any alcohol or drug abuse patient.[facility] CenterIn the event this information is protected by the Federal Confidentiality of Alcohol and Drug Abuse Patient Records regulations: The Federal rules restrict any use of the information to criminally investigate or prosecute any alcohol or drug abuse patient.[facility] CenterIn the event this information is protected by the Federal Confidentiality of Alcohol and Drug Abuse Patient Records regulations: The Federal rules restrict any use of the information to criminally investigate or prosecute any alcohol or drug abuse patient.[facility] CenterIn the event this information is protected by the Federal Confidentiality of Alcohol and Drug Abuse Patient Records regulations: The Federal rules restrict any use of the information to criminally investigate or prosecute any alcohol or drug abuse patient.[facility] CenterIn the event this information is protected by the Federal Confidentiality of Alcohol and Drug Abuse Patient Records regulations: The Federal rules restrict any use of the information to criminally investigate or prosecute any alcohol or drug abuse patient.[facility] CenterIn the event this information is protected by the Federal Confidentiality of Alcohol and Drug Abuse Patient Records regulations: The Federal rules restrict any use of the information to criminally investigate or prosecute any alcohol or drug abuse patient.[facility] CenterIn the event this information is protected by the Federal Confidentiality of Alcohol and Drug Abuse Patient Records regulations: The Federal rules restrict any use of the information to criminally investigate or prosecute any alcohol or drug abuse patient.[facility] CenterIn the event this information is protected by the Federal Confidentiality of Alcohol and Drug Abuse Patient Records regulations: The Federal rules restrict any use of the information to criminally investigate or prosecute any alcohol or drug abuse patient.[facility] CenterIn the event this information is protected by the Federal Confidentiality of Alcohol and Drug Abuse Patient Records regulations: The Federal rules restrict any use of the information to criminally investigate or prosecute any alcohol or drug abuse patient.[facility] CenterIn the event this information is protected by the Federal Confidentiality of Alcohol and Drug Abuse Patient Records regulations: The Federal rules restrict any use of the information to criminally investigate or prosecute any alcohol or drug abuse patient.[facility] CenterIn the event this information is protected by the Federal Confidentiality of Alcohol and Drug Abuse Patient Records regulations: The Federal rules restrict any use of the information to criminally investigate or prosecute any alcohol or drug abuse patient.[facility] CenterIn the event this information is protected by the Federal Confidentiality of Alcohol and Drug Abuse Patient Records regulations: The Federal rules restrict any use of the information to criminally investigate or prosecute any alcohol or drug abuse patient.[facility] CenterIn the event this information is protected by the Federal Confidentiality of Alcohol and Drug Abuse Patient Records regulations: The Federal rules restrict any use of the information to criminally investigate or prosecute any alcohol or drug abuse patient.[facility] CenterIn the event this information is protected by the Federal Confidentiality of Alcohol and Drug Abuse Patient Records regulations: The Federal rules restrict any use of the information to criminally investigate or prosecute any alcohol or drug abuse patient.[facility] CenterIn the event this information is protected by the Federal Confidentiality of Alcohol and Drug Abuse Patient Records regulations: The Federal rules restrict any use of the information to criminally investigate or prosecute any alcohol or drug abuse patient.[facility] CenterIn the event this information is protected by the Federal Confidentiality of Alcohol and Drug Abuse Patient Records regulations: The Federal rules restrict any use of the information to criminally investigate or prosecute any alcohol or drug abuse patient.[facility] CenterIn the event this information is protected by the Federal Confidentiality of Alcohol and Drug Abuse Patient Records regulations: The Federal rules restrict any use of the information to criminally investigate or prosecute any alcohol or drug abuse patient.[facility] CenterIn the event this information is protected by the Federal Confidentiality of Alcohol and Drug Abuse Patient Records regulations: The Federal rules restrict any use of the information to criminally investigate or prosecute any alcohol or drug abuse patient.[facility] CenterIn the event this information is protected by the Federal Confidentiality of Alcohol and Drug Abuse Patient Records regulations: The Federal rules restrict any use of the information to criminally investigate or prosecute any alcohol or drug abuse patient.[facility] CenterIn the event this information is protected by the Federal Confidentiality of Alcohol and Drug Abuse Patient Records regulations: The Federal rules restrict any use of the information to criminally investigate or prosecute any alcohol or drug abuse patient.[facility] CenterIn the event this information is protected by the Federal Confidentiality of Alcohol and Drug Abuse Patient Records regulations: The Federal rules restrict any use of the information to criminally investigate or prosecute any alcohol or drug abuse patient.[facility] CenterIn the event this information is protected by the Federal Confidentiality of Alcohol and Drug Abuse Patient Records regulations: The Federal rules restrict any use of the information to criminally investigate or prosecute any alcohol or drug abuse patient.[facility] CenterIn the event this information is protected by the Federal Confidentiality of Alcohol and Drug Abuse Patient Records regulations: The Federal rules restrict any use of the information to criminally investigate or prosecute any alcohol or drug abuse patient.[facility] CenterIn the event this information is protected by the Federal Confidentiality of Alcohol and Drug Abuse Patient Records regulations: The Federal rules restrict any use of the information to criminally investigate or prosecute any alcohol or drug abuse patient.[facility] CenterIn the event this information is protected by the Federal Confidentiality of Alcohol and Drug Abuse Patient Records regulations: The Federal rules restrict any use of the information to criminally investigate or prosecute any alcohol or drug abuse patient.[facility] CenterIn the event this information is protected by the Federal Confidentiality of Alcohol and Drug Abuse Patient Records regulations: The Federal rules restrict any use of the information to criminally investigate or prosecute any alcohol or drug abuse patient.[facility] CenterIn the event this information is protected by the Federal Confidentiality of Alcohol and Drug Abuse Patient Records regulations: The Federal rules restrict any use of the information to criminally investigate or prosecute any alcohol or drug abuse patient.[facility] CenterIn the event this information is protected by the Federal Confidentiality of Alcohol and Drug Abuse Patient Records regulations: The Federal rules restrict any use of the information to criminally investigate or prosecute any alcohol or drug abuse patient.[facility] CenterIn the event this information is protected by the Federal Confidentiality of Alcohol and Drug Abuse Patient Records regulations: The Federal rules restrict any use of the information to criminally investigate or prosecute any alcohol or drug abuse patient.[facility] CenterIn the event this information is protected by the Federal Confidentiality of Alcohol and Drug Abuse Patient Records regulations: The Federal rules restrict any use of the information to criminally investigate or prosecute any alcohol or drug abuse patient.[facility] CenterIn the event this information is protected by the Federal Confidentiality of Alcohol and Drug Abuse Patient Records regulations: The Federal rules restrict any use of the information to criminally investigate or prosecute any alcohol or drug abuse patient.[facility] CenterIn the event this information is protected by the Federal Confidentiality of Alcohol and Drug Abuse Patient Records regulations: The Federal rules restrict any use of the information to criminally investigate or prosecute any alcohol or drug abuse patient.[facility] CenterIn the event this information is protected by the Federal Confidentiality of Alcohol and Drug Abuse Patient Records regulations: The Federal rules restrict any use of the information to criminally investigate or prosecute any alcohol or drug abuse patient.[facility] CenterIn the event this information is protected by the Federal Confidentiality of Alcohol and Drug Abuse Patient Records regulations: The Federal rules restrict any use of the information to criminally investigate or prosecute any alcohol or drug abuse patient.[facility] CenterIn the event this information is protected by the Federal Confidentiality of Alcohol and Drug Abuse Patient Records regulations: The Federal rules restrict any use of the information to criminally investigate or prosecute any alcohol or drug abuse patient.[facility] CenterIn the event this information is protected by the Federal Confidentiality of Alcohol and Drug Abuse Patient Records regulations: The Federal rules restrict any use of the information to criminally investigate or prosecute any alcohol or drug abuse patient.[facility] CenterIn the event this information is protected by the Federal Confidentiality of Alcohol and Drug Abuse Patient Records regulations: The Federal rules restrict any use of the information to criminally investigate or prosecute any alcohol or drug abuse patient.[facility] CenterIn the event this information is protected by the Federal Confidentiality of Alcohol and Drug Abuse Patient Records regulations: The Federal rules restrict any use of the information to criminally investigate or prosecute any alcohol or drug abuse patient.[facility] CenterIn the event this information is protected by the Federal Confidentiality of Alcohol and Drug Abuse Patient Records regulations: The Federal rules restrict any use of the information to criminally investigate or prosecute any alcohol or drug abuse patient.[facility] CenterIn the event this information is protected by the Federal Confidentiality of Alcohol and Drug Abuse Patient Records regulations: The Federal rules restrict any use of the information to criminally investigate or prosecute any alcohol or drug abuse patient.[facility] CenterIn the event this information is protected by the Federal Confidentiality of Alcohol and Drug Abuse Patient Records regulations: The Federal rules restrict any use of the information to criminally investigate or prosecute any alcohol or drug abuse patient.[facility] CenterIn the event this information is protected by the Federal Confidentiality of Alcohol and Drug Abuse Patient Records regulations: The Federal rules restrict any use of the information to criminally investigate or prosecute any alcohol or drug abuse patient.[facility] CenterIn the event this information is protected by the Federal Confidentiality of Alcohol and Drug Abuse Patient Records regulations: The Federal rules restrict any use of the information to criminally investigate or prosecute any alcohol or drug abuse patient.[facility] CenterIn the event this information is protected by the Federal Confidentiality of Alcohol and Drug Abuse Patient Records regulations: The Federal rules restrict any use of the information to criminally investigate or prosecute any alcohol or drug abuse patient.[facility] CenterIn the event this information is protected by the Federal Confidentiality of Alcohol and Drug Abuse Patient Records regulations: The Federal rules restrict any use of the information to criminally investigate or prosecute any alcohol or drug abuse patient.[facility] CenterIn the event this information is protected by the Federal Confidentiality of Alcohol and Drug Abuse Patient Records regulations: The Federal rules restrict any use of the information to criminally investigate or prosecute any alcohol or drug abuse patient.[facility] CenterIn the event this information is protected by the Federal Confidentiality of Alcohol and Drug Abuse Patient Records regulations: The Federal rules restrict any use of the information to criminally investigate or prosecute any alcohol or drug abuse patient.[facility] CenterIn the event this information is protected by the Federal Confidentiality of Alcohol and Drug Abuse Patient Records regulations: The Federal rules restrict any use of the information to criminally investigate or prosecute any alcohol or drug abuse patient.[facility] CenterIn the event this information is protected by the Federal Confidentiality of Alcohol and Drug Abuse Patient Records regulations: The Federal rules restrict any use of the information to criminally investigate or prosecute any alcohol or drug abuse patient.[facility] CenterIn the event this information is protected by the Federal Confidentiality of Alcohol and Drug Abuse Patient Records regulations: The Federal rules restrict any use of the information to criminally investigate or prosecute any alcohol or drug abuse patient.[facility] CenterIn the event this information is protected by the Federal Confidentiality of Alcohol and Drug Abuse Patient Records regulations: The Federal rules restrict any use of the information to criminally investigate or prosecute any alcohol or drug abuse patient.[facility] CenterIn the event this information is protected by the Federal Confidentiality of Alcohol and Drug Abuse Patient Records regulations: The Federal rules restrict any use of the information to criminally investigate or prosecute any alcohol or drug abuse patient.[facility] CenterIn the event this information is protected by the Federal Confidentiality of Alcohol and Drug Abuse Patient Records regulations: The Federal rules restrict any use of the information to criminally investigate or prosecute any alcohol or drug abuse patient.[facility] CenterIn the event this information is protected by the Federal Confidentiality of Alcohol and Drug Abuse Patient Records regulations: The Federal rules restrict any use of the information to criminally investigate or prosecute any alcohol or drug abuse patient.[facility] CenterIn the event this information is protected by the Federal Confidentiality of Alcohol and Drug Abuse Patient Records regulations: The Federal rules restrict any use of the information to criminally investigate or prosecute any alcohol or drug abuse patient.[facility] CenterIn the event this information is protected by the Federal Confidentiality of Alcohol and Drug Abuse Patient Records regulations: The Federal rules restrict any use of the information to criminally investigate or prosecute any alcohol or drug abuse patient.[facility] CenterIn the event this information is protected by the Federal Confidentiality of Alcohol and Drug Abuse Patient Records regulations: The Federal rules restrict any use of the information to criminally investigate or prosecute any alcohol or drug abuse patient.[facility] CenterIn the event this information is protected by the Federal Confidentiality of Alcohol and Drug Abuse Patient Records regulations: The Federal rules restrict any use of the information to criminally investigate or prosecute any alcohol or drug abuse patient.[facility] CenterIn the event this information is protected by the Federal Confidentiality of Alcohol and Drug Abuse Patient Records regulations: The Federal rules restrict any use of the information to criminally investigate or prosecute any alcohol or drug abuse patient.[facility] CenterIn the event this information is protected by the Federal Confidentiality of Alcohol and Drug Abuse Patient Records regulations: The Federal rules restrict any use of the information to criminally investigate or prosecute any alcohol or drug abuse patient.[facility] CenterIn the event this information is protected by the Federal Confidentiality of Alcohol and Drug Abuse Patient Records regulations: The Federal rules restrict any use of the information to criminally investigate or prosecute any alcohol or drug abuse patient.[facility] CenterIn the event this information is protected by the Federal Confidentiality of Alcohol and Drug Abuse Patient Records regulations: The Federal rules restrict any use of the information to criminally investigate or prosecute any alcohol or drug abuse patient.[facility] CenterIn the event this information is protected by the Federal Confidentiality of Alcohol and Drug Abuse Patient Records regulations: The Federal rules restrict any use of the information to criminally investigate or prosecute any alcohol or drug abuse patient.[facility] CenterIn the event this information is protected by the Federal Confidentiality of Alcohol and Drug Abuse Patient Records regulations: The Federal rules restrict any use of the information to criminally investigate or prosecute any alcohol or drug abuse patient.[facility] CenterIn the event this information is protected by the Federal Confidentiality of Alcohol and Drug Abuse Patient Records regulations: The Federal rules restrict any use of the information to criminally investigate or prosecute any alcohol or drug abuse patient.[facility] CenterIn the event this information is protected by the Federal Confidentiality of Alcohol and Drug Abuse Patient Records regulations: The Federal rules restrict any use of the information to criminally investigate or prosecute any alcohol or drug abuse patient.[facility] CenterIn the event this information is protected by the Federal Confidentiality of Alcohol and Drug Abuse Patient Records regulations: The Federal rules restrict any use of the information to criminally investigate or prosecute any alcohol or drug abuse patient.[facility] CenterIn the event this information is protected by the Federal Confidentiality of Alcohol and Drug Abuse Patient Records regulations: The Federal rules restrict any use of the information to criminally investigate or prosecute any alcohol or drug abuse patient.[facility] CenterIn the event this information is protected by the Federal Confidentiality of Alcohol and Drug Abuse Patient Records regulations: The Federal rules restrict any use of the information to criminally investigate or prosecute any alcohol or drug abuse patient.[facility] CenterIn the event this information is protected by the Federal Confidentiality of Alcohol and Drug Abuse Patient Records regulations: The Federal rules restrict any use of the information to criminally investigate or prosecute any alcohol or drug abuse patient.[facility] CenterIn the event this information is protected by the Federal Confidentiality of Alcohol and Drug Abuse Patient Records regulations: The Federal rules restrict any use of the information to criminally investigate or prosecute any alcohol or drug abuse patient.[facility] CenterIn the event this information is protected by the Federal Confidentiality of Alcohol and Drug Abuse Patient Records regulations: The Federal rules restrict any use of the information to criminally investigate or prosecute any alcohol or drug abuse patient.[facility] CenterIn the event this information is protected by the Federal Confidentiality of Alcohol and Drug Abuse Patient Records regulations: The Federal rules restrict any use of the information to criminally investigate or prosecute any alcohol or drug abuse patient.[facility] CenterIn the event this information is protected by the Federal Confidentiality of Alcohol and Drug Abuse Patient Records regulations: The Federal rules restrict any use of the information to criminally investigate or prosecute any alcohol or drug abuse patient.[facility] CenterIn the event this information is protected by the Federal Confidentiality of Alcohol and Drug Abuse Patient Records regulations: The Federal rules restrict any use of the information to criminally investigate or prosecute any alcohol or drug abuse patient.[facility] CenterIn the event this information is protected by the Federal Confidentiality of Alcohol and Drug Abuse Patient Records regulations: The Federal rules restrict any use of the information to criminally investigate or prosecute any alcohol or drug abuse patient.[facility] CenterIn the event this information is protected by the Federal Confidentiality of Alcohol and Drug Abuse Patient Records regulations: The Federal rules restrict any use of the information to criminally investigate or prosecute any alcohol or drug abuse patient.[facility] CenterIn the event this information is protected by the Federal Confidentiality of Alcohol and Drug Abuse Patient Records regulations: The Federal rules restrict any use of the information to criminally investigate or prosecute any alcohol or drug abuse patient.[facility] CenterIn the event this information is protected by the Federal Confidentiality of Alcohol and Drug Abuse Patient Records regulations: The Federal rules restrict any use of the information to criminally investigate or prosecute any alcohol or drug abuse patient.[facility] CenterIn the event this information is protected by the Federal Confidentiality of Alcohol and Drug Abuse Patient Records regulations: The Federal rules restrict any use of the information to criminally investigate or prosecute any alcohol or drug abuse patient.[facility] CenterIn the event this information is protected by the Federal Confidentiality of Alcohol and Drug Abuse Patient Records regulations: The Federal rules restrict any use of the information to criminally investigate or prosecute any alcohol or drug abuse patient.[facility]In the event this information is protected by the Federal Confidentiality of Alcohol and Drug Abuse Patient Records regulations: The Federal rules restrict any use of the information to criminally investigate or prosecute any alcohol or drug abuse patient.[facility] CenterIn the event this information is protected by the Federal Confidentiality of Alcohol and Drug Abuse Patient Records regulations: The Federal rules restrict any use of the information to criminally investigate or prosecute any alcohol or drug abuse patient.[facility] CenterIn the event this information is protected by the Federal Confidentiality of Alcohol and Drug Abuse Patient Records regulations: The Federal rules restrict any use of the information to criminally investigate or prosecute any alcohol or drug abuse patient.[facility] CenterIn the event this information is protected by the Federal Confidentiality of Alcohol and Drug Abuse Patient Records regulations: The Federal rules restrict any use of the information to criminally investigate or prosecute any alcohol or drug abuse patient.[facility] CenterIn the event this information is protected by the Federal Confidentiality of Alcohol and Drug Abuse Patient Records regulations: The Federal rules restrict any use of the information to criminally investigate or prosecute any alcohol or drug abuse patient.[facility] CenterIn the event this information is protected by the Federal Confidentiality of Alcohol and Drug Abuse Patient Records regulations: The Federal rules restrict any use of the information to criminally investigate or prosecute any alcohol or drug abuse patient.[facility] CenterIn the event this information is protected by the Federal Confidentiality of Alcohol and Drug Abuse Patient Records regulations: The Federal rules restrict any use of the information to criminally investigate or prosecute any alcohol or drug abuse patient.[facility] CenterIn the event this information is protected by the Federal Confidentiality of Alcohol and Drug Abuse Patient Records regulations: The Federal rules restrict any use of the information to criminally investigate or prosecute any alcohol or drug abuse patient.[facility] CenterIn the event this information is protected by the Federal Confidentiality of Alcohol and Drug Abuse Patient Records regulations: The Federal rules restrict any use of the information to criminally investigate or prosecute any alcohol or drug abuse patient.[facility] CenterIn the event this information is protected by the Federal Confidentiality of Alcohol and Drug Abuse Patient Records regulations: The Federal rules restrict any use of the information to criminally investigate or prosecute any alcohol or drug abuse patient.[facility] CenterIn the event this information is protected by the Federal Confidentiality of Alcohol and Drug Abuse Patient Records regulations: The Federal rules restrict any use of the information to criminally investigate or prosecute any alcohol or drug abuse patient.[facility] CenterIn the event this information is protected by the Federal Confidentiality of Alcohol and Drug Abuse Patient Records regulations: The Federal rules restrict any use of the information to criminally investigate or prosecute any alcohol or drug abuse patient.[facility] [facility] CenterIn the event this information is protected by the Federal Confidentiality of Alcohol and Drug Abuse Patient Records regulations: The Federal rules restrict any use of the information to criminally investigate or prosecute any alcohol or drug abuse patient.[facility] CenterIn the event this information is protected by the Federal Confidentiality of Alcohol and Drug Abuse Patient Records regulations: The Federal rules restrict any use of the information to criminally investigate or prosecute any alcohol or drug abuse patient.[facility] CenterIn the event this information is protected by the Federal Confidentiality of Alcohol and Drug Abuse Patient Records regulations: The Federal rules restrict any use of the information to criminally investigate or prosecute any alcohol or drug abuse patient.[facility] CenterIn the event this information is protected by the Federal Confidentiality of Alcohol and Drug Abuse Patient Records regulations: The Federal rules restrict any use of the information to criminally investigate or prosecute any alcohol or drug abuse patient.[facility] CenterIn the event this information is protected by the Federal Confidentiality of Alcohol and Drug Abuse Patient Records regulations: The Federal rules restrict any use of the information to criminally investigate or prosecute any alcohol or drug abuse patient.[facility] CenterIn the event this information is protected by the Federal Confidentiality of Alcohol and Drug Abuse Patient Records regulations: The Federal rules restrict any use of the information to criminally investigate or prosecute any alcohol or drug abuse patient.[facility] CenterIn the event this information is protected by the Federal Confidentiality of Alcohol and Drug Abuse Patient Records regulations: The Federal rules restrict any use of the information to criminally investigate or prosecute any alcohol or drug abuse patient.[facility] CenterIn the event this information is protected by the Federal Confidentiality of Alcohol and Drug Abuse Patient Records regulations: The Federal rules restrict any use of the information to criminally investigate or prosecute any alcohol or drug abuse patient.[facility] CenterIn the event this information is protected by the Federal Confidentiality of Alcohol and Drug Abuse Patient Records regulations: The Federal rules restrict any use of the information to criminally investigate or prosecute any alcohol or drug abuse patient.[facility] CenterIn the event this information is protected by the Federal Confidentiality of Alcohol and Drug Abuse Patient Records regulations: The Federal rules restrict any use of the information to criminally investigate or prosecute any alcohol or drug abuse patient.[facility] CenterIn the event this information is protected by the Federal Confidentiality of Alcohol and Drug Abuse Patient Records regulations: The Federal rules restrict any use of the information to criminally investigate or prosecute any alcohol or drug abuse patient.[facility] CenterIn the event this information is protected by the Federal Confidentiality of Alcohol and Drug Abuse Patient Records regulations: The Federal rules restrict any use of the information to criminally investigate or prosecute any alcohol or drug abuse patient.[facility] CenterIn the event this information is protected by the Federal Confidentiality of Alcohol and Drug Abuse Patient Records regulations: The Federal rules restrict any use of the information to criminally investigate or prosecute any alcohol or drug abuse patient.[facility] CenterIn the event this information is protected by the Federal Confidentiality of Alcohol and Drug Abuse Patient Records regulations: The Federal rules restrict any use of the information to criminally investigate or prosecute any alcohol or drug abuse patient.[facility] CenterIn the event this information is protected by the Federal Confidentiality of Alcohol and Drug Abuse Patient Records regulations: The Federal rules restrict any use of the information to criminally investigate or prosecute any alcohol or drug abuse patient.[facility] CenterIn the event this information is protected by the Federal Confidentiality of Alcohol and Drug Abuse Patient Records regulations: The Federal rules restrict any use of the information to criminally investigate or prosecute any alcohol or drug abuse patient.[facility] CenterIn the event this information is protected by the Federal Confidentiality of Alcohol and Drug Abuse Patient Records regulations: The Federal rules restrict any use of the information to criminally investigate or prosecute any alcohol or drug abuse patient.[facility] CenterIn the event this information is protected by the Federal Confidentiality of Alcohol and Drug Abuse Patient Records regulations: The Federal rules restrict any use of the information to criminally investigate or prosecute any alcohol or drug abuse patient.[facility] CenterIn the event this information is protected by the Federal Confidentiality of Alcohol and Drug Abuse Patient Records regulations: The Federal rules restrict any use of the information to criminally investigate or prosecute any alcohol or drug abuse patient.[facility] CenterIn the event this information is protected by the Federal Confidentiality of Alcohol and Drug Abuse Patient Records regulations: The Federal rules restrict any use of the information to criminally investigate or prosecute any alcohol or drug abuse patient.[facility] CenterIn the event this information is protected by the Federal Confidentiality of Alcohol and Drug Abuse Patient Records regulations: The Federal rules restrict any use of the information to criminally investigate or prosecute any alcohol or drug abuse patient.[facility] CenterIn the event this information is protected by the Federal Confidentiality of Alcohol and Drug Abuse Patient Records regulations: The Federal rules restrict any use of the information to criminally investigate or prosecute any alcohol or drug abuse patient.[facility] CenterIn the event this information is protected by the Federal Confidentiality of Alcohol and Drug Abuse Patient Records regulations: The Federal rules restrict any use of the information to criminally investigate or prosecute any alcohol or drug abuse patient.[facility] CenterIn the event this information is protected by the Federal Confidentiality of Alcohol and Drug Abuse Patient Records regulations: The Federal rules restrict any use of the information to criminally investigate or prosecute any alcohol or drug abuse patient.[facility] CenterIn the event this information is protected by the Federal Confidentiality of Alcohol and Drug Abuse Patient Records regulations: The Federal rules restrict any use of the information to criminally investigate or prosecute any alcohol or drug abuse patient.[facility] CenterIn the event this information is protected by the Federal Confidentiality of Alcohol and Drug Abuse Patient Records regulations: The Federal rules restrict any use of the information to criminally investigate or prosecute any alcohol or drug abuse patient.[facility] CenterIn the event this information is protected by the Federal Confidentiality of Alcohol and Drug Abuse Patient Records regulations: The Federal rules restrict any use of the information to criminally investigate or prosecute any alcohol or drug abuse patient.[facility] CenterIn the event this information is protected by the Federal Confidentiality of Alcohol and Drug Abuse Patient Records regulations: The Federal rules restrict any use of the information to criminally investigate or prosecute any alcohol or drug abuse patient.[facility] CenterIn the event this information is protected by the Federal Confidentiality of Alcohol and Drug Abuse Patient Records regulations: The Federal rules restrict any use of the information to criminally investigate or prosecute any alcohol or drug abuse patient.[facility] CenterIn the event this information is protected by the Federal Confidentiality of Alcohol and Drug Abuse Patient Records regulations: The Federal rules restrict any use of the information to criminally investigate or prosecute any alcohol or drug abuse patient.[facility] CenterIn the event this information is protected by the Federal Confidentiality of Alcohol and Drug Abuse Patient Records regulations: The Federal rules restrict any use of the information to criminally investigate or prosecute any alcohol or drug abuse patient.[facility] CenterIn the event this information is protected by the Federal Confidentiality of Alcohol and Drug Abuse Patient Records regulations: The Federal rules restrict any use of the information to criminally investigate or prosecute any alcohol or drug abuse patient.[facility] CenterIn the event this information is protected by the Federal Confidentiality of Alcohol and Drug Abuse Patient Records regulations: The Federal rules restrict any use of the information to criminally investigate or prosecute any alcohol or drug abuse patient.[facility] CenterIn the event this information is protected by the Federal Confidentiality of Alcohol and Drug Abuse Patient Records regulations: The Federal rules restrict any use of the information to criminally investigate or prosecute any alcohol or drug abuse patient.[facility] CenterIn the event this information is protected by the Federal Confidentiality of Alcohol and Drug Abuse Patient Records regulations: The Federal rules restrict any use of the information to criminally investigate or prosecute any alcohol or drug abuse patient.[facility] CenterIn the event this information is protected by the Federal Confidentiality of Alcohol and Drug Abuse Patient Records regulations: The Federal rules restrict any use of the information to criminally investigate or prosecute any alcohol or drug abuse patient.[facility] CenterIn the event this information is protected by the Federal Confidentiality of Alcohol and Drug Abuse Patient Records regulations: The Federal rules restrict any use of the information to criminally investigate or prosecute any alcohol or drug abuse patient.[facility] CenterIn the event this information is protected by the Federal Confidentiality of Alcohol and Drug Abuse Patient Records regulations: The Federal rules restrict any use of the information to criminally investigate or prosecute any alcohol or drug abuse patient.[facility] CenterIn the event this information is protected by the Federal Confidentiality of Alcohol and Drug Abuse Patient Records regulations: The Federal rules restrict any use of the information to criminally investigate or prosecute any alcohol or drug abuse patient.[facility] CenterIn the event this information is protected by the Federal Confidentiality of Alcohol and Drug Abuse Patient Records regulations: The Federal rules restrict any use of the information to criminally investigate or prosecute any alcohol or drug abuse patient.[facility] CenterIn the event this information is protected by the Federal Confidentiality of Alcohol and Drug Abuse Patient Records regulations: The Federal rules restrict any use of the information to criminally investigate or prosecute any alcohol or drug abuse patient.[facility] CenterIn the event this information is protected by the Federal Confidentiality of Alcohol and Drug Abuse Patient Records regulations: The Federal rules restrict any use of the information to criminally investigate or prosecute any alcohol or drug abuse patient.[facility] CenterIn the event this information is protected by the Federal Confidentiality of Alcohol and Drug Abuse Patient Records regulations: The Federal rules restrict any use of the information to criminally investigate or prosecute any alcohol or drug abuse patient.[facility] CenterIn the event this information is protected by the Federal Confidentiality of Alcohol and Drug Abuse Patient Records regulations: The Federal rules restrict any use of the information to criminally investigate or prosecute any alcohol or drug abuse patient.[facility] CenterIn the event this information is protected by the Federal Confidentiality of Alcohol and Drug Abuse Patient Records regulations: The Federal rules restrict any use of the information to criminally investigate or prosecute any alcohol or drug abuse patient.[facility] CenterIn the event this information is protected by the Federal Confidentiality of Alcohol and Drug Abuse Patient Records regulations: The Federal rules restrict any use of the information to criminally investigate or prosecute any alcohol or drug abuse patient.[facility] CenterIn the event this information is protected by the Federal Confidentiality of Alcohol and Drug Abuse Patient Records regulations: The Federal rules restrict any use of the information to criminally investigate or prosecute any alcohol or drug abuse patient.[facility] CenterIn the event this information is protected by the Federal Confidentiality of Alcohol and Drug Abuse Patient Records regulations: The Federal rules restrict any use of the information to criminally investigate or prosecute any alcohol or drug abuse patient.[facility] CenterIn the event this information is protected by the Federal Confidentiality of Alcohol and Drug Abuse Patient Records regulations: The Federal rules restrict any use of the information to criminally investigate or prosecute any alcohol or drug abuse patient.[facility] CenterIn the event this information is protected by the Federal Confidentiality of Alcohol and Drug Abuse Patient Records regulations: The Federal rules restrict any use of the information to criminally investigate or prosecute any alcohol or drug abuse patient.[facility] CenterIn the event this information is protected by the Federal Confidentiality of Alcohol and Drug Abuse Patient Records regulations: The Federal rules restrict any use of the information to criminally investigate or prosecute any alcohol or drug abuse patient.[facility] CenterIn the event this information is protected by the Federal Confidentiality of Alcohol and Drug Abuse Patient Records regulations: The Federal rules restrict any use of the information to criminally investigate or prosecute any alcohol or drug abuse patient.[facility] CenterIn the event this information is protected by the Federal Confidentiality of Alcohol and Drug Abuse Patient Records regulations: The Federal rules restrict any use of the information to criminally investigate or prosecute any alcohol or drug abuse patient.[facility] CenterIn the event this information is protected by the Federal Confidentiality of Alcohol and Drug Abuse Patient Records regulations: The Federal rules restrict any use of the information to criminally investigate or prosecute any alcohol or drug abuse patient.[facility] CenterIn the event this information is protected by the Federal Confidentiality of Alcohol and Drug Abuse Patient Records regulations: The Federal rules restrict any use of the information to criminally investigate or prosecute any alcohol or drug abuse patient.[facility] CenterIn the event this information is protected by the Federal Confidentiality of Alcohol and Drug Abuse Patient Records regulations: The Federal rules restrict any use of the information to criminally investigate or prosecute any alcohol or drug abuse patient.[facility] CenterIn the event this information is protected by the Federal Confidentiality of Alcohol and Drug Abuse Patient Records regulations: The Federal rules restrict any use of the information to criminally investigate or prosecute any alcohol or drug abuse patient.[facility] CenterIn the event this information is protected by the Federal Confidentiality of Alcohol and Drug Abuse Patient Records regulations: The Federal rules restrict any use of the information to criminally investigate or prosecute any alcohol or drug abuse patient.[facility] CenterIn the event this information is protected by the Federal Confidentiality of Alcohol and Drug Abuse Patient Records regulations: The Federal rules restrict any use of the information to criminally investigate or prosecute any alcohol or drug abuse patient.[facility] CenterIn the event this information is protected by the Federal Confidentiality of Alcohol and Drug Abuse Patient Records regulations: The Federal rules restrict any use of the information to criminally investigate or prosecute any alcohol or drug abuse patient.[facility] CenterIn the event this information is protected by the Federal Confidentiality of Alcohol and Drug Abuse Patient Records regulations: The Federal rules restrict any use of the information to criminally investigate or prosecute any alcohol or drug abuse patient.[facility] CenterIn the event this information is protected by the Federal Confidentiality of Alcohol and Drug Abuse Patient Records regulations: The Federal rules restrict any use of the information to criminally investigate or prosecute any alcohol or drug abuse patient.[facility] CenterIn the event this information is protected by the Federal Confidentiality of Alcohol and Drug Abuse Patient Records regulations: The Federal rules restrict any use of the information to criminally investigate or prosecute any alcohol or drug abuse patient.[facility] Goals (unrecognized section and content) Goals may be documented in a n alternate sectionGoals may be documented in an alternate sectionGoals may be documented in an alternate sectionGoals may be documented in an alternate section FOR RECORDS PERTAINING TO PATIENTS WHO ARE OR HAVE BEEN ENROLLED IN A CHEMICAL DEPENDENCY/SUBSTANCEABUSE PROGRAM, SOME INFORMATION MAY BE OMITTED. This clinical summary was aggregated from multiple sources. Caution should be exercised in using it in the provision of clinical care. This summary normalizes information from multiple sources, and as a consequence, information in this document may materially change the coding, format and clinical context of patient data. In addition, data may be omitted in some cases. CLINICAL DECISIONS SHOULD BE BASED ON THE PRIMARY CLINICAL RECORDS. [facility]. provides no warranty or guarantee of the accuracy or completeness of information in this document.
[2025-02-11 16:11] LABS: Hematocrit 32.3 % (37-47); Hemoglobin 10.9 g/dL (12.0-15.0); Immature Granulocytes Count 0.020 X10^3/uL (0.0-0.0); Mean Corp Hgb Conc 33.7 g/dL (32-36); Mean Corpuscular Volume 90.2 fL (81-99); Mean Platelet Vol. 9.7 fl (6.2-12.0); NRBC Flagged by Analyzer 0 % (0-5); Platelet Count 191 K/mm3 (150-450); RBC Distribution Width CV 12.8 % (11.6-14.6); RBC Distribution Width SD 42.3 fl (35.1-43.9); Red Blood Count 3.58 M/mm3 (4.2-5.4); White Blood Count 5.7 K/mm3 (4.4-11.0)
--- NOTE | 2025-02-11 16:13 | RAD_ITS ---
PROCEDURE: CHEST 1 VIEW (PORTABLE) 02/11/2025 REASON FOR EXAM: SOB TECHNIQUE: Frontal view of the chest. COMPARISON: 04/25/2024 FINDINGS: Hardware: None. Heart: The heart size is normal. Lungs: There is mild bibasilar atelectasis. No focal consolidation, pneumothorax, or sizable pleural effusion. Bones: The bones are unremarkable. RAD/Chest 1 View (Portable) IMPRESSION: Mild bibasilar atelectasis. No focal consolidation. [facility]
[2025-02-11 16:44] LABS: Troponin T High Sensitivity 15 ng/L (<=14)
[2025-02-11 16:47] LABS: Pro- Brain NATRIURETIC PEPTIDE 203 pg/mL (<=900)
[2025-02-11 16:48] LABS: Anion Gap 11 (7-18); BUN 21 mg/dL (4-19); BUN/Creat Ratio 27.6 RATIO (10-20); Calcium,Total 9.0 mg/dL (7.6-11.0); Carbon Dioxide 30.1 mmol/L (20.0-29.0); Chloride 101 mmol/L (96-106); Estimated Creatinine Clearance 112.03 ml/min (50-250); Glucose 152 mg/dL (70-99); Potassium 4.3 mmol/L (3.5-5.1)
--- NOTE | 2025-02-11 17:15 | ED.RN ---
Pt ambulated down alves with use of walker. Pt ambulated without difficulty. Pulse ox started at 98%, lowest reading 94% while walking. Dr. Conner notified of results. When assisted back into room, this RN and ANIMAL RIDE MANAGER attempted to get pt back into bed. Pt unable to get into bed d/t bed height. Attempted to use stool, pt unable to lift leg onto stool. Pt states she does not have any stairs at home. Pt assisted into chair and placed back on the monitor.
--- NOTE | 2025-02-11 18:30 | ED.RN ---
ETA for pt transport home 2300. Pt states I have to go to the bathroom. this RN and Roger RN attempted to assist pt up to standing, pt states my legs hurt too much from sitting like this to stand up. Inpatient floor called for [place] lift and sent down a trained staff member to assist. Pt af[place] lifted up into bed and [place] put in place.
[2025-02-11] MEDS: HYDROcodone Bitartrate/Apap 5/325 Tablet PO (21:58)
== END 2025-02-11 22:56 | disposition home or self-care (01) ==
PROVIDERS: Emergency Provider Emergency Medicine; PCP Family Medicine; Visit Provider Emergency Medicine
DX: R06.00 Dyspnea, unspecified (principal); I11.0 Hypertensive heart disease with heart failure; I50.9 Heart failure, unspecified; J44.9 Chronic obstructive pulmonary disease, unspecified; E11.42 Type 2 diabetes mellitus with diabetic polyneuropathy; Z79.4 Long term (current) use of insulin; G47.33 Obstructive sleep apnea (adult) (pediatric); Z79.899 Other long term (current) drug therapy; Z86.718 Personal history of other venous thrombosis and embolism; Z87.891 Personal history of nicotine dependence
CPT/HCPCS: 71045; 80048; 83880; 84484; 85025; 87631; 93005; 96374; 99285; A4216; J1938